=== PATIENT | female | born 1990 | race Caucasian/White ===

== ENCOUNTER → 2016-05-22 | Outpatient (CLI) | payer BC ==
[~2016-05-22] MED LIST: ALBU1AER9 INH; AMT50 PO; ASTN; CETI10TA84 PO; CETICHW4 PO; CHOL100027 PO; DICY10CA55 PO; ENOX60IN SQ; HYDR10TA52 PO; HYOS1TAB PO; LEVO1IUD INT UTER; LINA1CAP; LINA1CAP PO; MESA1.2T PO; NORE1TAB50 PO; NORE5TAB5 PO; ONDA4TAB46 PO; OXYC-57 PO; OXYC1TAB3 PO; PANT40TA PO; PROM25TA9 PO; RANI150T2 PO; SENN-65 PO; THYR1TAB15 PO; THYR65TA11 PO; VNTHFA/IN INH; ZYR10 PO; [UNRECOGNIZED DRUG - CODE] PO; lovenox SQ
--- NOTE | 2016-05-26 14:13 | CODING QUERY MEDICAL NECESSITY ---
: 1990 SUPPORTING DIAGNOSIS NEEDED A supporting diagnosis is required for the test/procedure performed on this patient in order for us to be reimbursed by the patient's insurance. Please provide a supporting diagnosis for the following test/procedure listed below next to the test name along with your signature. *If there is no additional diagnosis for this patient that would support the following test/procedure please document that below next to the test/procedure. Test(s)/Procedure(s) that require a supporting diagnosis: * DXA, BONE DENSITY AX DOS: 05/22/16 DIAGNOSIS: Provider Signature: Date: Thank you Lynne Foster Health Information Management Once completed, please kindly fax back to [phone] For questions please call [phone]
== END | disposition home or self-care (01) ==
LOC: C.MAMM 08:03
PROVIDERS: ATTEND Family Medicine
DX: E46 Unspecified protein-calorie malnutrition (principal); K90.9 Intestinal malabsorption, unspecified

== ENCOUNTER 2016-06-06 15:54 | Observation (INO) | payer BC ==
[~2016-06-06] VITALS: Ht 167.6 cm; Wt 48.6 kg
[~2016-06-06 15:54] MED LIST changes: -CETI10TA84 PO; -ENOX60IN SQ; -HYDR10TA52 PO; -HYOS1TAB PO; -LINA1CAP; -LINA1CAP PO; -NORE1TAB50 PO; -ONDA4TAB46 PO; -OXYC-57 PO; -OXYC1TAB3 PO; -RANI150T2 PO; -SENN-65 PO; -THYR1TAB15 PO; -THYR65TA11 PO; -VNTHFA/IN INH; -ZYR10 PO; -lovenox SQ
[2016-06-06 16:40] VITALS: BP 108/73; PULSE 104; TEMP 37.1; O2SAT 98; Ht 167.6 cm; Wt 48.6 kg
[2016-06-06] MEDS ORDERED: DICYCLOMINE HCL 10 MG CAP PO PRN (16:45)
[2016-06-06] MEDS ORDERED: ACETAMINOPHEN 325 MG TAB PO PRN (16:45)
[2016-06-06] MEDS ORDERED: LORAZEPAM INJ 0.5 MG in SYRINGE 0.25 ML IV PRN (16:45)
--- NOTE | 2016-06-06 17:10 | History and Physical ---
History & Physical Date & Time of Service: Jun 06, 2016 at 16:57 Chief Complaint: Allergic Reaction Primary Care Physician: Mariah Addison D.O. History of Present Illness Source: patient, hospital records This patient is a 26-year-old female that was in [facility] today receiving her IV Phenergan for chronic nausea and vomiting when she developed an allergic reaction. She reports getting hives on her chest, back and legs. They do not itch. Her throat does feel scratchy. It is not difficult to swallow. The patient typically takes Phenergan orally at home as needed. She has never had an allergic reaction to this before. Besides the Phenergan IV, the patient also received normal saline. No other meds were given at [facility]. She denies taking any new medications today. She took her typical pantoprazole this morning. She denies any dizziness or lightheadedness. No heart palpitations, chest pain or shortness of breath. She denies any new soaps, lotions or detergents. No new foods today. 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 Surgical Problems: (1) H/O adenoidectomy Status: Resolved (2) H/O laparoscopy Status: Resolved (3) H/O lumpectomy Status: Resolved (4) History of release of tendon Status: Resolved (5) Hx of tonsillectomy Status: Resolved (6) S/P wrist surgery Status: Resolved (7) [place] teeth extracted Status: Resolved Family History Diabetes mellitus FHx: cancer FHx: heart disease Hypertension Kidney stones Seizures Social History Smoking Status: Never Smoker Alcohol Use: none Drug Use: none Marital Status: single Housing status: lives with family Occupational Status: [employer] 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 Immunizations History of Influenza Vaccine: Yes History of Tetanus Vaccine?: Yes History of Pneumococcal: No History of Hepatitis B Vaccine: Yes Multi-Drug Resistant Organisms History of MDRO: No Allergies Coded Allergies: Erythromycin (Verified Allergy, Severe, GI SYMPTOMS, 06/06/16) Cephalosporins (Verified Allergy, Intermediate, HIVES, 06/06/16) Clavulanic Acid (Verified Allergy, Intermediate, HIVES, 06/06/16) Penicillins (Verified Allergy, Intermediate, HIVES, 06/06/16) Promethazine (Verified Allergy, Intermediate, hives, 06/06/16) Sulfamethoxazole w/Trimethoprim (Verified Allergy, Intermediate, RASH, ) Amoxicillin (Verified Allergy, Unknown, RASH, 06/06/16) Sumatriptan (Verified Allergy, Unknown, RASH, 06/06/16) Diphenhydramine (Verified Adverse Reaction, Intermediate, Tachycardia, Severe Anxiety, 06/06/16) Only with IV administration. Can take PO Home Medications Scheduled Amitriptyline Hcl (Elavil), 30 MG PO HS Cholecalciferol (Vitamin D 1000 Unit), 1,000 INTER.UNIT PO DAILY Levonorgestrel (Iud) (Betty), 13.5 MG INT UTER CONTINOUS Norethindrone (Aygestin), 2.5 MG PO DAILY Pantoprazole (Protonix), 40 MG PO DAILY Scheduled PRN Albuterol (Proair Hfa), 2 PUFFS INH Q4H PRN for SOB/Wheezing Azelastine Hcl (Astelin Nasal [place]), 1-2 SPRAYS NA BID PRN for Rhinitis Cetirizine HCl (All Day Allergy), 10 MG PO HS PRN for ALLERGIC REACTION Dicyclomine Hcl (Bentyl), 10-20 MG PO Q6H PRN for Abdominal Pain Trimethobenzamide Hcl (Trimethobenzamide Hcl), 300 MG PO TID PRN for Nausea Review of Systems 10 system review performed and negative unless noted in HPI or below Physical Exam VITALS: Vitals are noted on the nurse's note and reviewed by myself. Vital signs stable. GENERAL: 26-year-old female, mildly anxious in appearance SKIN: Blotchy erythematous, flat lesions noted to the trunk.. HEAD: Normocephalic atraumatic. EYES: Conjunctivae without injection, sclerae without icterus. Extraocular movements intact. MOUTH: Mucous membranes moist. Tonsils are not enlarged. Pharynx without erythema or exudate. Uvula midline. Airway patent. Tongue does not deviate. No swelling of the oropharynx NECK: Supple without nuchal rigidity. No lymphadenopathy. No JVD. HEART: Tachycardic, regular rate and rhythm without murmurs gallops or rubs. LUNGS: Clear to auscultation bilaterally without wheezes, rales or rhonchi. No accessory muscle use. ABDOMEN: Positive bowel sounds x 4.Soft, nontender, without organomegaly. No guarding or rebound tenderness. MUSCULOSKELETAL: No muscle atrophy, erythema, or edema noted. Strength 5/5 throughout. NEURO: Patient was alert and oriented to person place and time. Normal sensation to touch. No focal neurological deficits. Impression Assessment and Plan 26-year-old female with a history of Crohn's disease, chronic nausea and vomiting at her scheduled [facility] visit for IV Phenergan and fluids now appears to be having a mild allergic reaction. Etiology unclear. It would be unusual for her to develop an allergic reaction to Phenergan considering she has been on it for several months. She has received IV Phenergan in the past without any problems. Allergic reaction -Observe in telemetry -Continuous pulse ox -Solu-Medrol 60 mg IV every 8 hours -Patient has Benadryl listed as an allergy. We will give her Zyrtec 10 mg now. She can have her usual dose of Zyrtec tonight. -Begin Ativan 0.5 mg every 4 hours for anxiety, itching and nausea -I will hold off on any other antiemetics at the moment. I do not want to introduce any new medications. SMA syndrome/Crohn's disease -Continue mesalamine 3.6 g daily -Continue Protonix 40 mg daily -Continue amitriptyline 30 mg at night DVT prophylaxis -Encourage ambulation -Teds, SCDs CODE STATUS -LEVEL I FULL CODE VTE Prophylaxis VTE Risk Assessment Done? Y/N: Yes Risk Level: Low Assessment and Plan Attending Addendum: I have seen and examined this patient, have directed their medical care, and agree with the H&P as noted above.
[2016-06-06] MEDS: NSS + 20MEQ KCL 1000ML 1,000 ML IV SCH (18:10)
[2016-06-06] MEDS ORDERED: IV FLUIDS COMPLETED PRN (19:00)
[2016-06-06 19:48] VITALS: BP 94/64; PULSE 120; TEMP 37.1; O2SAT 97
[2016-06-06 20:00] VITALS: O2SAT 97
[2016-06-06] MEDS: CETIRIZINE HCL 10 MG TAB PO ONE ×2 (20:45→20:47)
[2016-06-06] MEDS ORDERED: AMITRIPTYLINE HCL 10 MG TAB PO SCH (21:00)
[2016-06-06 23:50] VITALS: BP 104/72; PULSE 110; TEMP 36.6; O2SAT 96
[2016-06-07] VITALS: O2SAT 97
[2016-06-07 03:30] VITALS: BP 91/55; PULSE 113; TEMP 36.9; O2SAT 97
[2016-06-07 04:00] VITALS: O2SAT 97
[2016-06-07] MEDS: NSS + 20MEQ KCL 1000ML 1,000 ML IV SCH (04:18)
[2016-06-07 07:18] LABS: COMPLETE YES; HEMATOCRIT 35.1 % (37-47); IG% 0.2 %; LYMPH % 14.3 %; LYMPH ABS # 1.38 K/uL (1.2-3.4); MEAN CELL VOLUME 90.9 fL (80-100); MEAN CORPUSCULAR HEMOGLOBIN 30.6 pg (25-34); MEAN CORPUSCULAR HGB CONC 33.6 g/dl (32-36); MEAN PLATELET VOLUME 10.6 fL (7.4-10.4); MONO % 11.1 %; NEUT % 74.4 %; PLATELET COUNT 279 K/uL (130-400); RED BLOOD COUNT 3.86 M/uL (4.2-5.4); WHITE BLOOD COUNT 9.64 K/uL (4.8-10.8)
[2016-06-07 07:47] LABS: BUN/CREATININE RATIO 13.2 (10-20); CALCIUM 8.8 mg/dl (8.5-10.1); CREATININE 0.65 mg/dl (0.60-1.20); POTASSIUM 4.3 mmol/L (3.5-5.1)
[2016-06-07 07:56] VITALS: BP 101/64; PULSE 93; TEMP 37; O2SAT 98
[2016-06-07] MEDS ORDERED: PANTOprazole SOD 40 MG TAB PO SCH (09:00)
[2016-06-07] MEDS ORDERED: NORETHINDRONE ACETATE 5 MG TAB PO SCH (09:00)
[2016-06-07 11:18] VITALS: BP 104/72; PULSE 101; TEMP 36.8; O2SAT 99
[2016-06-07] MEDS ORDERED: ZYR10 PO (12:49)
--- NOTE | 2016-06-07 12:59 | Discharge Instructions ---
Discharge Instructions Admission Reason for Admission: Allergic Reaction Discharge Discharge Diagnosis / Problem: Allergic Reaction Discharge Goals Goal(s): Decrease discomfort, Improve function Activity Recommendations Activity Limitations: resume your previous activity . Instructions / Follow-Up Instructions / Follow-Up Please follow up with the Commercial Illustrator Please follow up with the primary care doctor as scheduled on Thursday Current Hospital Diet Patient's current hospital diet: Regular Diet Discharge Diet Recommended Diet: Regular Diet Pending Studies Studies pending at discharge: no Medical Emergencies . Who to Call and When: Medical Emergencies: If at any time you feel your situation is an emergency, please call 911 immediately. . Non-Emergent Contact Non-Emergency issues call your: Primary Care Provider . . "Provider Documentation" section prepared by Cecilia Cruz. VTE Core Measure Inpt VTE Proph given/why not?: Cherie Johns, SCD's
[2016-06-07 14:05] VITALS: BP 104/72; PULSE 101; TEMP 36.8; O2SAT 99
--- NOTE | 2016-06-07 18:21 | Discharge Summary ---
Discharge Summary Admission Date: Jun 06, 2016 at 16:28 Discharge Date: Jun 07, 2016 Discharge Disposition: Home Principal Diagnosis: Allergic reaction Immunizations: Have You Had Influenza Vaccine: Yes History of Tetanus Vaccine?: Yes History of Pneumococcal: No History of Hepatitis B Vaccine: Yes (Cecilia Cruz MD) Discharge Exam Review of Systems: Constitutional: No chills, No fever Respiratory: No cough, No shortness of breath, No wheezing Abdomen: + nausea (chronic nausea especially after PO intake), + pain ( chronic pain), No vomiting Musculoskeletal: No muscle pain Genitourinary - Female: No dysuria Integumentary: No rash Physical Exam: General Appearance: no apparent distress Neck: supple, no JVD Respiratory/Chest: chest non-tender, lungs clear, normal breath sounds, no respiratory distress Cardiovascular: regular rate, rhythm, no edema, no gallop Abdomen / GI: normal bowel sounds, soft, no organomegaly Extremities: normal inspection, no pedal edema Neurologic/Psychiatric: alert, normal mood/affect, oriented x 3 Skin: normal color, warm/dry, no rash (Cecilia Cruz MD) Hospital Course 26-year-old female with a history of SMA, chronic nausea and vomiting at her scheduled [facility] visit for IV Phenergan and fluids. After 10 minutes of finishing IV phenergan she appears to have a mild allergic reaction. Etiology is unclear but it's most likely 2/2 Phenergan. However she has received IV Phenergan in the past without any problems. 1. Allergic reaction - She was observe in telemetry. All the antiemetics medications were on hold. She received one dose Solu-Medrol 60 mg IV. She also received Zyrtec. - She was observed overnight. In the morning she felt better and her symptoms resolved. - She was instructed not to take PO or IV Phnenergen given her allergic rxn most likely due to Phenergan. - Recommended to follow up with [facility] within a week. Also recommended to follow up with PCP on Thursday. - Patient was stable to discharge home with follow up with PCP. Total Time Spent: Less than 30 minutes This includes examination of the patient, discharge planning, medication reconciliation, and communication with other providers. (Cecilia Cruz MD) Discharge Instructions Please refer to the electronic Patient Visit Report (Discharge Instructions) for additional information. (Cecilia Cruz MD) Additional Copies To Mariah Addison D.O. Reviewed: Pt Seen/Exam by NANY Pruitt Notes, Labs (Vicky Drew MD) History Resident Physician Supervision Note: I was present with Dr. Cruz during the history and exam. I discussed the case with the resident and agree with the findings and plan as documented in the note. Any exceptions or clarifications are listed here: Pt admitted with hives after receiving her usual IV Phenergan in [facility]. Resolved after receiving IV steroids and 1 dose Zyrtec. Feeling fine, no SOB or wheezing , no throat closing, no cough, no more rash. Vitals reviewed NAD AAOx3 Skin mild erythematous macular rash on back very faint CTAB no wcr rrr no mgr Ext no edema 2+ DP pulses A/P: 26 yo female with a h/o chronic bad pain and chronic N/V, SMA syndrome and renal infarct, here with hives and likely allergic reaction to Phenergan. Suggested she f/u with her Asthma/Allergy doctor she is already established with. F/u with PCP as well within 1 week. Avoid phenergan Documented By: Vicky Drew (Vicky Drew MD)
[2016-06-07] MEDS ORDERED: CETIRIZINE HCL 10 MG TAB PO SCH (21:00)
[2016-08-28] MEDS ORDERED: lovenox SQ (13:05)
[2016-12-18] MEDS ORDERED: LINA1CAP PO (12:16)
[2016-12-18] MEDS ORDERED: HYOS1TAB PO (12:16)
[2016-12-22] MEDS ORDERED: OXYC-57 PO (15:35)
[2016-12-31] MEDS ORDERED: HYOS1TAB PO ×2 (10:37)
[2016-12-31] MEDS ORDERED: LINA1CAP (10:37)
== END 2016-06-07 14:55 | disposition home or self-care (01) ==
LOC: C.MED 16:28
PROVIDERS: ADMIT Hospitalist; ATTEND Hospitalist
DX: T42.6X5A Adverse effect of other antiepileptic and sedative-hypnotic drugs, initial encounter (principal); K55.1 Chronic vascular disorders of intestine; J45.909 Unspecified asthma, uncomplicated; K50.90 Crohn's disease, unspecified, without complications; Z90.49 Acquired absence of other specified parts of digestive tract; Z88.2 Allergy status to sulfonamides; Z88.0 Allergy status to penicillin; Z83.3 Family history of diabetes mellitus; Z84.1 Family history of disorders of kidney and ureter; Z82.49 Family history of ischemic heart disease and other diseases of the circulatory system

== ENCOUNTER 2016-09-04 21:32 | Emergency (ER) | payer BC ==
[~2016-09-04] VITALS: Ht 167.6 cm; Wt 49.8 kg
[~2016-09-04 21:32] MED LIST changes: -CETICHW4 PO; -MESA1.2T PO; -PROM25TA9 PO; +ZYR10 PO; +lovenox SQ
[2016-09-04 21:56] VITALS: TEMP 36.7; Ht 167.6 cm; Wt 49.8 kg
[2016-09-04] MEDS ORDERED: ONDANSETRON INJ 2 MG/ML 2 ML VIAL IV STA (23:08)
[2016-09-04] MEDS ORDERED: MoRPHine SULFATE 4 MG/ML 1 ML CARP\\VIAL IV STA (23:08)
[2016-09-04] MEDS ORDERED: SODIUM CHLORIDE 0.9% 1000ML 1,000 ML IV STA (23:08)
[2016-09-04] MEDS ORDERED: GI COCKTAIL PO ONE (23:15)
[2016-09-04] MEDS ORDERED: ENOXAPARIN 60 MG/0.6 ML SYR SQ ONE (23:30)
[2016-09-04 23:48] LABS: BASO % 0.6 %; BASO ABS # 0.04 K/uL (0-0.2); COMPLETE YES; EOS % 0.8 %; HEMATOCRIT 40.3 % (37-47); IG% 0.2 %; MEAN CELL VOLUME 92.2 fL (80-100); MEAN CORPUSCULAR HEMOGLOBIN 31.1 pg (25-34); MEAN CORPUSCULAR HGB CONC 33.7 g/dl (32-36); MEAN PLATELET VOLUME 10.5 fL (7.4-10.4); MONO % 11.7 %; NEUT % 59.7 %; PLATELET COUNT 290 K/uL (130-400); RED BLOOD COUNT 4.37 M/uL (4.2-5.4); WHITE BLOOD COUNT 6.66 K/uL (4.8-10.8)
[2016-09-04] MEDS ORDERED: LIDOCAINE HCL 2% VISC SOLN 20 ML UDC ONE (23:52)
[2016-09-04] MEDS ORDERED: ALUMINUM/MAGNESIUM/SIMETH (MAALOX MAX) 30 ML UDC ONE (23:53)
[2016-09-05 00:10] LABS: ALT/SGPT 65 U/L (12-78); AST/SGOT 27 U/L (15-37); BLOOD UREA NITROGEN 10 mg/dl (7-18); CALCIUM 9.3 mg/dl (8.5-10.1); CARBON DIOXIDE 28 mmol/L (21-32); CHLORIDE 109 mmol/L (98-107); CREATININE 0.91 mg/dl (0.60-1.20); GLUCOSE 88 mg/dl (70-99); POTASSIUM 3.6 mmol/L (3.5-5.1); SODIUM 145 mmol/L (136-145)
[2016-09-05 00:12] LABS: PREG INTERNAL NEGATIVE QC NEG CLEAR BACKGROUND; PREG INTERNAL POSITIVE QC POS CONTROL LINE
[2016-09-05 00:13] LABS: ALKALINE PHOSPHATASE 55 U/L (45-117)
[2016-09-05 00:31] LABS: MANUAL MICROSCOPIC REQUIRED? NO; URINE APPEARANCE CLEAR (CLEAR); URINE BILIRUBIN NEG (NEG); URINE COLOR YELLOW; URINE NITRITE NEG (NEG); UROBILINOGEN NEG (NEG)
[2016-09-05 00:32] LABS: REVIEW REQ? NO
[2016-09-05 01:51] VITALS: BP 104/59; PULSE 111; O2SAT 96
[2016-09-05] MEDS ORDERED: MoRPHine SULFATE 4 MG/ML 1 ML CARP\\VIAL IV STA (02:08)
[2016-09-05] MEDS ORDERED: NORE1TAB50 PO (02:13)
[2016-09-05] MEDS ORDERED: NORCO 5/325MG HOME PACK PO ONE (02:15)
[2016-09-05] MEDS ORDERED: ENOX60IN SQ (02:15)
--- NOTE | 2016-09-05 02:15 | EMERGENCY ROOM VISIT NOTE ---
History First contact with patient: 22:47 Chief Complaint: GI ASSESSMENT Stated Complaint: DIFFICULTY SWALLOWING,ACID REFLUX, PAIN Nursing Triage Summary: Having hard time swallowing. Patient has a hx of hiatal hernia. History of Present Illness The patient is a 26 year old female who presents to the Emergency Department by private vehicle with her mother for evaluation of her difficulty with swallowing as well as acid reflux and pain. The patient has a long-standing history of GI issues including SMA syndrome and generalized abdominal discomfort. She reports that she has an outpatient x-ray scheduled for tomorrow for a motility's Tiwari test. This evening, after eating, she noticed she was having difficulty with swallowing. She is able to tolerate her oral secretions, however. She reports pain in her epigastrium which is unchanged. She rates her current discomfort as a 7/10. She is tried nothing [id number] for symptoms. She denies any fevers, chills, chest pain, palpitations, short of breath, hematemesis, hematochezia, melena, hematuria, or dysuria. Review of Systems A complete 10-point Review of Systems was discussed with the patient, with pertinent positives and negatives listed in the History of Present Illness. All remaining Review of Systems questions can be considered negative unless otherwise specified. Past Medical/Surgical History Medical Problems: (1) Allergic reaction (2) Allergic reaction (3) Allergic reaction caused by a drug (4) Asthma (5) Crohn's disease (6) Endometriosis (7) Hypotension (8) SMAS (superior mesenteric artery syndrome) Surgical Problems: (1) H/O adenoidectomy (2) H/O laparoscopy (3) H/O lumpectomy (4) History of release of tendon (5) Hx of tonsillectomy (6) S/P cholecystectomy (7) S/P wrist surgery (8) [place] teeth extracted Family History Diabetes mellitus FHx: cancer FHx: heart disease Hypertension Kidney stones Seizures Social History Smoking Status: Never Smoker Alcohol Use: none Drug Use: none Marital Status: single Housing Status: lives with family Occupation Status: [employer] Current/Historical Medications Scheduled Amitriptyline Hcl (Elavil), 30 MG PO HS Enoxaparin (Lovenox), 50 MG SQ Q12H Levonorgestrel (Iud) (Betty), 13.5 MG INT UTER CONTINOUS Norethindrone (Contraceptive) (Norethindrone), 0.35 MG PO DAILY Pantoprazole (Protonix), 40 MG PO DAILY Scheduled PRN Albuterol Hfa (Ventolin Hfa), 2 PUFFS INH Q6H PRN for SOB/Wheezing Azelastine Hcl (Astelin Nasal [place]), 1-2 SPRAYS NA BID PRN for Rhinitis Cetirizine (Zyrtec), 10 MG PO DAILY PRN for ALLERGIC REACTION Dicyclomine Hcl (Bentyl), 10-20 MG PO Q6H PRN for Abdominal Pain Ondansetron Hcl (Zofran), 4 MG PO Q6H PRN for Nausea Trimethobenzamide Hcl (Trimethobenzamide Hcl), 300 MG PO TID PRN for Nausea Allergies Coded Allergies: Amoxicillin (Verified Allergy, Intermediate, RASH, 09/06/16) Cephalosporins (Verified Allergy, Intermediate, HIVES, 09/06/16) Clavulanic Acid (Verified Allergy, Intermediate, HIVES, 09/06/16) Penicillins (Verified Allergy, Intermediate, HIVES, 09/06/16) Promethazine (Verified Allergy, Intermediate, hives, 09/06/16) Sulfamethoxazole w/Trimethoprim (Verified Allergy, Intermediate, RASH, ) Sumatriptan (Verified Allergy, Intermediate, RASH, 09/06/16) Diphenhydramine (Verified Adverse Reaction, Intermediate, Tachycardia, Severe Anxiety WITH IV ONLY, 09/06/16) Only with IV administration. Can take PO Erythromycin (Verified Adverse Reaction, Intermediate, GI SYMPTOMS, ) Physical Exam Vital Signs Date Time Temp Pulse Resp B/P Pulse Ox O2 Delivery O2 Flow Rate FiO2 09/05/16 01:51 111 20 104/59 96 Room Air 09/05/16 00:09 120 09/04/16 23:55 127 14 112/87 99 Room Air 09/04/16 21:56 36.7 117 16 108/73 99 Room Air Pain Rating (0-10): 7 Physical Exam VITAL SIGNS - Vital signs and nursing notes were reviewed. GENERAL - 26-year-old female appearing her stated age who is in no acute distress. Communicates well with provider and answers questions appropriately. LUNGS - Chest wall symmetric without accessory muscle use, intercostals retractions, or central cyanosis. Normal vesicular breath sounds CTA B/L. No wheezes, rales, or rhonchi appreciated. CARDIAC - RRR with S1/S2. No murmur, rubs, or gallops appreciated. ABDOMEN - Abdominal contour flat and without pulsations or visible masses. BS normoactive all four quadrants. No tenderness to palpation appreciated throughout. No guarding. No Rebound Tenderness. Negative Rovsing's. Negative Yanez's. No palpable masses, hepatosplenomegaly, or ascites noted. PSYCH - A&Ox3 and cooperates fully with examiner. Pt is very pleasant and interacts well with examiner. Medical Decision & Procedures ER Provider Diagnostic Interpretation: Radiological imaging and reports were reviewed by myself. Radiologist's Interpretation as follows: Laboratory Results 09/04/16 23:26 Red Blood Count 4.37, Mean Corpuscular Volume 92.2, Mean Corpuscular Hemoglobin 31.1, Mean Corpuscular Hemoglobin Concent 33.7, Mean Platelet Volume 10.5, Neutrophils (%) (Auto) 59.7, Lymphocytes (%) (Auto) 27.0, Monocytes (%) (Auto) 11.7, Eosinophils (%) (Auto) 0.8, Basophils (%) (Auto) 0.6, Neutrophils # (Auto ) 3.98, Lymphocytes # (Auto) 1.80, Monocytes # (Auto) 0.78, Eosinophils # (Auto ) 0.05, Basophils # (Auto) 0.04 09/04/16 23:26 Test 09/04/16 23:26 09/05/16 00:06 White Blood Count 6.66 K/uL (4.8-10.8) Red Blood Count 4.37 M/uL (4.2-5.4) Hemoglobin 13.6 g/dL (12.0-16.0) Hematocrit 40.3 % (37-47) Mean Corpuscular Volume 92.2 fL (80-100) Mean Corpuscular Hemoglobin 31.1 pg (25-34) Mean Corpuscular Hemoglobin Concent 33.7 g/dl (32-36) Platelet Count 290 K/uL (130-400) Mean Platelet Volume 10.5 fL (7.4-10.4) Neutrophils (%) (Auto) 59.7 % Lymphocytes (%) (Auto) 27.0 % Monocytes (%) (Auto) 11.7 % Eosinophils (%) (Auto) 0.8 % Basophils (%) (Auto) 0.6 % Neutrophils # (Auto) 3.98 K/uL (1.4-6.5) Lymphocytes # (Auto) 1.80 K/uL (1.2-3.4) Monocytes # (Auto) 0.78 K/uL (0.11-0.59) Eosinophils # (Auto) 0.05 K/uL (0-0.5) Basophils # (Auto) 0.04 K/uL (0-0.2) RDW Standard Deviation 40.4 fL (36.4-46.3) RDW Coefficient of Variation 11.8 % (11.5-14.5) Immature Granulocyte % (Auto) 0.2 % Immature Granulocyte # (Auto) 0.01 K/uL (0.00-0.02) Anion Gap 8.0 mmol/L (3-11) Est Creatinine Clear Calc Drug Dose 74.9 ml/min Estimated GFR () 102.3 Estimated GFR (Non- 88.3 BUN/Creatinine Ratio 11.0 (10-20) Calcium Level 9.3 mg/dl (8.5-10.1) Total Bilirubin 0.2 mg/dl (0.2-1) Direct Bilirubin < 0.1 mg/dl (0-0.2) Aspartate Amino Transf (AST/SGOT) 27 U/L (15-37) Alanine Aminotransferase (ALT/SGPT) 65 U/L (12-78) Alkaline Phosphatase 55 U/L (45-117) Total Protein 7.7 gm/dl (6.4-8.2) Albumin 4.5 gm/dl (3.4-5.0) Lipase 227 U/L (73-393) Human Chorionic Gonadotropin, Qual NEG (NEG) Urine Color YELLOW Urine Appearance CLEAR (CLEAR) Urine pH 7.0 (4.5-7.5) Urine Specific [place] 1.010 (1.000-1.030) Urine Protein NEG (NEG) Urine Glucose (UA) NEG (NEG) Urine Ketones NEG (NEG) Urine Occult Blood NEG (NEG) Urine Nitrite NEG (NEG) Urine Bilirubin NEG (NEG) Urine Urobilinogen NEG (NEG) Urine Leukocyte Esterase NEG (NEG) Medications Administered Medications (Trade) Dose Ordered Sig/Amber Route Start Time Stop Time Status Last Admin Dose Admin Sodium Chloride (Nss 1000ml) 1,000 ml @ 999 mls/hr Q1H1M STAT IV 09/04/16 23:08 09/05/16 00:08 DC 09/04/16 23:51 999 MLS/HR Morphine Sulfate (MoRPHine SULFATE INJ) 4 mg NOW STAT IV 09/04/16 23:08 09/04/16 23:10 DC 09/04/16 23:52 4 MG Ondansetron HCl (Zofran Inj) 4 mg NOW STAT IV 09/04/16 23:08 09/04/16 23:10 DC 09/04/16 23:51 4 MG Enoxaparin Sodium (Lovenox Inj) 50 mg NOW ONCE SQ 09/04/16 23:30 09/04/16 23:31 DC 09/05/16 00:00 50 MG Lidocaine HCl (Viscous Lidocaine 2% Soln) 20 ml STK-MED ONCE .ROUTE 09/04/16 23:52 09/04/16 23:53 DC 09/04/16 23:52 20 ML Al Hydrox/Mg Hydrox/Simethicone (Maalox Max Susp) 30 ml STK-MED ONCE .ROUTE 09/04/16 23:53 09/04/16 23:54 DC 09/04/16 23:53 30 ML Morphine Sulfate (MoRPHine SULFATE INJ) 4 mg NOW STAT IV 09/05/16 02:08 09/05/16 02:09 DC 09/05/16 02:16 4 MG Acetaminophen/ Hydrocodone Bitart (Coral 5/325mg Home Pack) 1 homepack UD ONCE PO 09/05/16 02:15 09/05/16 02:16 DC 09/05/16 02:16 1 HOMEPACK ED Course Patient was seen and evaluated by myself. Labs were drawn, saline lock in place. The patient was hydrated with 1000 mL normal saline bolus. She received 4 mg morphine and 4 mg Zofran intravenously. She sees GI cocktail as well. The patient did not take her nightly dose of Lovenox. She was provided 50 mg subcutaneously. X-ray of the cervical spine soft tissues were obtained. Laboratory results demonstrate no acute leukocytosis, worrisome anemia, or bandemia. The patient has no significant electrolyte abnormalities. Urinalysis unremarkable. The patient is reevaluated and reports to pain. She was treated with an additional 4 mg morphine. The patient was offered admission for pain control which she has done in the past versus outpatient follow-up tomorrow as she does have an outpatient department scheduled. She is comfortable with disposition to the outpatient setting. She was provided a Percocet home pack. She was educated on worrisome symptoms for return visit to the emergency department. Patient discharged home in good condition. Medical Decision Given the patient's presentation and stated complaints, I did elect to perform the above-mentioned workup. The patient presents to the emergency department complaining of difficulty with swallowing. She complains of abdominal pain. This is a constant finding. She has no fever leukocytosis. She has no significant electrolyte abnormalities. She is no acute hepatitis. She responded well to GI cocktail and pain control in the setting. She was offered admission for pain control versus close follow-up with GI provider which is scheduled tomorrow. She looks to be discharged. The patient was educated on worrisome symptoms for return visit to the emergency department. Patient discharged home in good condition. In the evaluation and treatment of this patient, the following differential diagnoses were considered: Appendicitis, Diverticulitis, Diverticulosis, Colitis , Ischemic Colitis, Inflammatory Bowel Disease, Irritable Bowel Disease, Ovarian Cyst, , Ectopic, Ovarian Torsion, Kidney Stone, Pyelonephritis , Hydronephrosis, Cholecystitis, Ascending Cholangitis, Choledocholithiasis, GERD. Impression Primary Impression: Difficulty swallowing Additional Impression: Abdominal pain Departure Information Dispostion Home / Self-Care Condition GOOD Referrals Mariah Addison D.O. (PCP) Patient Instructions [facility] Additional Instructions You have been treated in the Emergency Department your Difficulty Swallowing and Abdominal Pain. Laboratory results and imaging studies have ruled out any emergent causes for your abdominal pain which would warrant admission or surgery. For pain control, you can use the following [id number]-isrghse medicines (if >12 yo): - Regular strength (325mg/tab) Tylenol (acetaminophen) 2 tabs every 4-6 hours as needed. Do not exceed 12 tablets in a 24 hour period. Avoid taking more than 4 grams (4000 mg) of Tylenol per day. This includes any other sources of acetaminophen you may take on a regular basis. - Regular strength (200 mg/tab) Advil (ibuprofen) 1-2 tabs every 4-6 hours as needed. Do not exceed a dose of 3200 mg per day. Drink plenty of water and stay well hydrated. As with any trip to the Emergency Department, you should follow-up with your Primary Care Provider from today's visit. Return to the emergency department if your symptoms persist despite treatment plan outlined above or if the following symptoms occur: increased fevers, chills , worsening nausea/vomiting, blood in your stool or urine. Problem Qualifiers Primary Impression: Difficulty swallowing Dysphagia type: unspecified Qualified Codes: R13.10 - Dysphagia, unspecified Additional Impression: Abdominal pain Abdominal location: unspecified location Qualified Codes: R10.9 - Unspecified abdominal pain
[2016-09-05] MEDS ORDERED: ONDA4TAB46 PO (02:18)
[2016-09-05] MEDS ORDERED: CETI10TA84 PO (02:18)
--- NOTE | 2016-09-05 07:38 | DIAGNOSTIC IMAGING REPORT ---
SOFT TISSUES NECK 2 VIEWS CLINICAL HISTORY: Dysphagia. FINDINGS: AP and lateral views of the soft tissues of the neck are correlated with fluoroscopic upper GI series dated 02/11/2016. The soft tissues of the neck are normal in appearance. The airway is widely patent. The epiglottic shadow is normal. The prevertebral/retropharyngeal soft tissues are within normal limits. No radiodense foreign body is seen. The cervical spine is intact as imaged. Partially imaged apical lung parenchyma appears clear. IMPRESSION: Unremarkable radiographic assessment of the soft tissues of the neck. Electronically signed by: Kirk Burgos M.D. 09/05/2016 7:36 AM Dictated Date/Time: 09/05/2016 7:35 AM
[2016-09-06] MEDS ORDERED: VNTHFA/IN INH (00:12)
[2016-12-18] MEDS ORDERED: HYOS1TAB PO (12:16)
[2016-12-18] MEDS ORDERED: LINA1CAP PO (12:16)
[2016-12-22] MEDS ORDERED: OXYC-57 PO (15:35)
[2016-12-31] MEDS ORDERED: LINA1CAP (10:37)
[2016-12-31] MEDS ORDERED: HYOS1TAB PO ×2 (10:37)
== END 2016-09-05 02:33 | disposition home or self-care (01) ==
LOC: C.EDB 21:33
DX: R13.10 Dysphagia, unspecified (principal); R10.9 Unspecified abdominal pain; K55.1 Chronic vascular disorders of intestine; K50.90 Crohn's disease, unspecified, without complications; N80.9 Endometriosis, unspecified; J45.909 Unspecified asthma, uncomplicated; I95.9 Hypotension, unspecified; Z83.3 Family history of diabetes mellitus; Z80.9 Family history of malignant neoplasm, unspecified; Z82.49 Family history of ischemic heart disease and other diseases of the circulatory system; Z84.1 Family history of disorders of kidney and ureter; Z79.899 Other long term (current) drug therapy

== ENCOUNTER 2016-09-05 23:50 | Emergency (ER) | payer BC ==
[~2016-09-05] VITALS: Ht 167.6 cm; Wt 49.3 kg
[~2016-09-05 23:50] MED LIST changes: +CETI10TA84 PO; +ENOX60IN SQ; +NORE1TAB50 PO; +ONDA4TAB46 PO
[2016-09-05 23:54] VITALS: TEMP 37.1; Ht 167.6 cm; Wt 49.3 kg
[2016-09-06] MEDS ORDERED: VNTHFA/IN INH (00:12)
--- NOTE | 2016-09-06 00:50 | EMERGENCY ROOM VISIT NOTE ---
History Report prepared by Sylvester: Sunitha Muir Under the Supervision of: Dr. Cecily Love D.O. First contact with patient: 00:19 Chief Complaint: VOMITING Stated Complaint: VOMITING,NAUSEA History of Present Illness The patient is a 26 year old female who presents to the Emergency Room with complaints of intermittent vomiting beginning tonight. The patient states that she has SMA syndrome and endometriosis. She notes that she had a KUB done today and had a swallowing study scheduled. Tonight the patient reports that she started vomiting bile and has not been able to keep liquids down. She notes that she has had an appendectomy, cholecystectomy, and one surgery for her SMA with another consultation with a surgeon for another potential SMA surgery. She states that she has had no previous obstructions. The patient complains of nausea beginning a few days ago. Source of History: patient Onset: tonight Position: other (global) Quality: other (vomiting bile) Timing: intermittent Associated Symptoms: + nausea Review of Systems See HPI for pertinent positives & negatives. A total of 10 systems reviewed and were otherwise negative. Past Medical & Surgical Medical Problems: (1) Allergic reaction (2) Allergic reaction (3) Allergic reaction caused by a drug (4) Asthma (5) Crohn's disease (6) Endometriosis (7) Hypotension (8) SMAS (superior mesenteric artery syndrome) Surgical Problems: (1) H/O adenoidectomy (2) H/O laparoscopy (3) H/O lumpectomy (4) History of release of tendon (5) Hx of tonsillectomy (6) S/P cholecystectomy (7) S/P wrist surgery (8) [place] teeth extracted Family History Diabetes mellitus FHx: cancer FHx: heart disease Hypertension Kidney stones Seizures Social History Smoking Status: Never Smoker Alcohol Use: none Drug Use: none Marital Status: single Housing Status: lives with family Occupation Status: [employer] Current/Historical Medications Scheduled Amitriptyline Hcl (Elavil), 30 MG PO HS Enoxaparin (Lovenox), 50 MG SQ Q12H Levonorgestrel (Iud) (Betty), 13.5 MG INT UTER CONTINOUS Norethindrone (Contraceptive) (Norethindrone), 0.35 MG PO DAILY Pantoprazole (Protonix), 40 MG PO DAILY Scheduled PRN Albuterol Hfa (Ventolin Hfa), 2 PUFFS INH Q6H PRN for SOB/Wheezing Azelastine Hcl (Astelin Nasal [place]), 1-2 SPRAYS NA BID PRN for Rhinitis Cetirizine (Zyrtec), 10 MG PO DAILY PRN for ALLERGIC REACTION Dicyclomine Hcl (Bentyl), 10-20 MG PO Q6H PRN for Abdominal Pain Ondansetron Hcl (Zofran), 4 MG PO Q6H PRN for Nausea Trimethobenzamide Hcl (Trimethobenzamide Hcl), 300 MG PO TID PRN for Nausea Allergies Coded Allergies: Amoxicillin (Verified Allergy, Intermediate, RASH, 09/06/16) Cephalosporins (Verified Allergy, Intermediate, HIVES, 09/06/16) Clavulanic Acid (Verified Allergy, Intermediate, HIVES, 09/06/16) Penicillins (Verified Allergy, Intermediate, HIVES, 09/06/16) Promethazine (Verified Allergy, Intermediate, hives, 09/06/16) Sulfamethoxazole w/Trimethoprim (Verified Allergy, Intermediate, RASH, ) Sumatriptan (Verified Allergy, Intermediate, RASH, 09/06/16) Diphenhydramine (Verified Adverse Reaction, Intermediate, Tachycardia, Severe Anxiety WITH IV ONLY, 09/06/16) Only with IV administration. Can take PO Erythromycin (Verified Adverse Reaction, Intermediate, GI SYMPTOMS, ) Physical Exam Vital Signs Date Time Temp Pulse Resp B/P Pulse Ox O2 Delivery O2 Flow Rate FiO2 09/06/16 04:39 107 16 84/59 97 Room Air 09/06/16 03:48 101 18 93/62 99 Room Air 09/06/16 01:47 102 16 88/54 98 Room Air 09/05/16 23:54 37.1 110 18 99/70 95 Room Air Physical Exam HEENT: Head - normocephalic and atraumatic Pupils are equal, round, and reactive to light. Extraocular eye muscles are intact, and sclera are anicteric. Nose - moist nasal mucosa without discharge. Mouth - moist buccal mucosa. Oropharynx is nonerythematous and there is no tonsillar exudate or edema noted. Neck: Supple; no JVD, nuchal rigidity, cervical lymphadenopathy. Heart: Tachycardic rate and regular rhythm. There is a normal S1 and S2 with no murmurs, clicks, or gallops appreciated. Lungs: Clear to auscultation bilaterally with no wheezes, rales, or rhonchi. Abdomen: Soft, epigastric pain on palpation, nondistended, with good bowel sounds. There are no palpable pulsatile masses or hepatosplenomegaly. There is no guarding, rigidity, or rebound noted. Extremities: No evidence of cyanosis, clubbing, or edema. There are easily palpable peripheral pulses. Skin: warm and dry with good turgor and no rashes. Medical Decision & Procedures ER Provider Diagnostic Interpretation: X-ray results as stated below per interpretation by me: Obstruction Series: Moderate colonic fecal retention with no evidence of bowel obstruction. Laboratory Results 09/06/16 00:52 Red Blood Count 4.19, Mean Corpuscular Volume 92.6, Mean Corpuscular Hemoglobin 31.0, Mean Corpuscular Hemoglobin Concent 33.5, Mean Platelet Volume 10.4, Neutrophils (%) (Auto) 83.6, Lymphocytes (%) (Auto) 9.2, Monocytes (%) (Auto) 6.4, Eosinophils (%) (Auto) 0.4, Basophils (%) (Auto) 0.1, Neutrophils # (Auto) 13.35, Lymphocytes # (Auto) 1.47, Monocytes # (Auto) 1.02, Eosinophils # (Auto) 0.06, Basophils # (Auto) 0.02 09/06/16 00:52 Test 09/06/16 00:52 White Blood Count 15.97 K/uL (4.8-10.8) Red Blood Count 4.19 M/uL (4.2-5.4) Hemoglobin 13.0 g/dL (12.0-16.0) Hematocrit 38.8 % (37-47) Mean Corpuscular Volume 92.6 fL (80-100) Mean Corpuscular Hemoglobin 31.0 pg (25-34) Mean Corpuscular Hemoglobin Concent 33.5 g/dl (32-36) Platelet Count 287 K/uL (130-400) Mean Platelet Volume 10.4 fL (7.4-10.4) Neutrophils (%) (Auto) 83.6 % Lymphocytes (%) (Auto) 9.2 % Monocytes (%) (Auto) 6.4 % Eosinophils (%) (Auto) 0.4 % Basophils (%) (Auto) 0.1 % Neutrophils # (Auto) 13.35 K/uL (1.4-6.5) Lymphocytes # (Auto) 1.47 K/uL (1.2-3.4) Monocytes # (Auto) 1.02 K/uL (0.11-0.59) Eosinophils # (Auto) 0.06 K/uL (0-0.5) Basophils # (Auto) 0.02 K/uL (0-0.2) RDW Standard Deviation 40.6 fL (36.4-46.3) RDW Coefficient of Variation 12.0 % (11.5-14.5) Immature Granulocyte % (Auto) 0.3 % Immature Granulocyte # (Auto) 0.05 K/uL (0.00-0.02) Anion Gap 8.0 mmol/L (3-11) Est Creatinine Clear Calc Drug Dose 85.5 ml/min Estimated GFR () 121.4 Estimated GFR (Non- 104.8 BUN/Creatinine Ratio 12.7 (10-20) Calcium Level 9.0 mg/dl (8.5-10.1) Total Bilirubin 0.3 mg/dl (0.2-1) Direct Bilirubin < 0.1 mg/dl (0-0.2) Aspartate Amino Transf (AST/SGOT) 70 U/L (15-37) Alanine Aminotransferase (ALT/SGPT) 130 U/L (12-78) Alkaline Phosphatase 58 U/L (45-117) Total Protein 7.3 gm/dl (6.4-8.2) Albumin 4.4 gm/dl (3.4-5.0) Amylase Level 64 U/L (25-115) Laboratory results per my review. Medications Administered Medications (Trade) Dose Ordered Sig/Amber Route Start Time Stop Time Status Last Admin Dose Admin Sodium Chloride 1,000 ml @ 250 mls/hr Q4H STAT IV 09/06/16 00:51 09/06/16 04:50 DC 09/06/16 00:51 250 MLS/HR Sodium Chloride (Nss 1000ml) 1,000 ml @ 999 mls/hr Q1H1M STAT IV 09/06/16 00:51 09/06/16 01:51 DC 09/06/16 00:58 999 MLS/HR Ondansetron HCl (Zofran Inj) 4 mg NOW STAT IV 09/06/16 00:51 09/06/16 00:52 DC 09/06/16 00:58 4 MG Lorazepam (Ativan Inj) 0.5 mg NOW STAT IV 09/06/16 01:35 09/06/16 01:41 DC 09/06/16 01:45 0.5 MG Lorazepam (Ativan Inj) 0.5 mg NOW STAT IV 09/06/16 03:35 09/06/16 03:36 DC 09/06/16 03:46 0.5 MG Procedure 0051: Zofran Inj 4mg IV, Sodium Chloride 1000 ml @ 999 mls/hr IV, Sodium Chloride 1000 ml @ 250 mls/hr IV. 0135: Ativan Inj 0.5mg IV. 0347: Ativan Inj 0.5mg IV. ED Course 0019: Past medical records reviewed. The patient was evaluated in room B5. A complete history and physical exam was performed. An IV lock was initiated and labs are drawn as above. 0051: Zofran Inj 4mg IV, Sodium Chloride 1000 ml @ 999 mls/hr IV, Sodium Chloride 1000 ml @ 250 mls/hr IV. She had an obstruction series as described above. 0135: She continued to complain of nausea and was given Ativan Inj 0.5mg IV. 0240: I spoke to the patient and her mother. She is doing much better. She had a second opinion by an brand attendant recently for a potential adrenal insufficiency. 0336: The patient is nauseated again. 0347: Ativan Inj 0.5mg IV. 0425: Upon reevaluation, the patient is doing well. I discussed findings and results with the patient and her mother. They verbalized agreement of the treatment plan. The patient was discharged home. Medical Decision The patient is a 26 year old female who presents to the ED with vomiting. Differential diagnosis includes small bowel obstruction, exacerbation of SMA syndrome, gastritis, colitis, dehydration. LABS: WBC 15.9 Stable H&H Normal Renal Function AST 70 ALT 130 Amylase 64 Glucose 98 Patient presents to the emergency department with bilious vomiting. X-ray shows no evidence of bowel obstruction. I do not suspect pelvic floor dysfunction as she has had in the past. She does appear to be somewhat dry on physical exam. She received IV crystalloid therapy along with Zofran and Ativan for nausea. She had no further episodes of bilious vomiting while here in the emergency department. The patient was able to drink clear liquids and eat crackers without difficulty. I have encouraged her to follow-up with her PCP on Thursday if her symptoms persist. If symptoms worsen, she can return here to the ER. Impression Primary Impression: Bilious vomiting Scribe Attestation The scribe's documentation has been prepared under my direction and personally reviewed by me in its entirety. I confirm that the note above accurately reflects all work, treatment, procedures, and medical decision making performed by me. Departure Information Dispostion Home / Self-Care Referrals Mariah Addison D.O. (PCP) Forms HOME CARE DOCUMENTATION FORM, IMPORTANT VISIT INFORMATION Patient Instructions My [facility], [facility] Additional Instructions Rest. Take plenty of clear liquids and a very bland diet. Use zofran as needed. Follow up with PCP on Thursday if symptoms persist
[2016-09-06] MEDS ORDERED: SODIUM CHLORIDE 0.9% 1000ML 1,000 ML IV STA ×2 (00:51)
[2016-09-06] MEDS ORDERED: ONDANSETRON INJ 2 MG/ML 2 ML VIAL IV STA (00:51)
[2016-09-06 01:07] LABS: BASO % 0.1 %; BASO ABS # 0.02 K/uL (0-0.2); COMPLETE YES; EOS % 0.4 %; HEMATOCRIT 38.8 % (37-47); IG% 0.3 %; LYMPH % 9.2 %; LYMPH ABS # 1.47 K/uL (1.2-3.4); MEAN CELL VOLUME 92.6 fL (80-100); MEAN CORPUSCULAR HGB CONC 33.5 g/dl (32-36); MEAN PLATELET VOLUME 10.4 fL (7.4-10.4); MONO % 6.4 %; NEUT % 83.6 %; PLATELET COUNT 287 K/uL (130-400); RED BLOOD COUNT 4.19 M/uL (4.2-5.4); WHITE BLOOD COUNT 15.97 K/uL (4.8-10.8)
[2016-09-06 01:25] LABS: ALT/SGPT 130 U/L (12-78); AST/SGOT 70 U/L (15-37); BLOOD UREA NITROGEN 10 mg/dl (7-18); BUN/CREATININE RATIO 12.7 (10-20); CARBON DIOXIDE 27 mmol/L (21-32); CHLORIDE 107 mmol/L (98-107); CREATININE 0.79 mg/dl (0.60-1.20); GLUCOSE 98 mg/dl (70-99); POTASSIUM 3.9 mmol/L (3.5-5.1); SODIUM 142 mmol/L (136-145)
[2016-09-06 01:28] LABS: ALKALINE PHOSPHATASE 58 U/L (45-117); AMYLASE 64 U/L (25-115)
[2016-09-06] MEDS ORDERED: LORAZEPAM 2 MG/ML 1 ML VIAL IV STA ×2 (01:35→03:35)
[2016-09-06 04:39] VITALS: BP 84/59; PULSE 107; O2SAT 97
--- NOTE | 2016-09-06 07:11 | DIAGNOSTIC IMAGING REPORT ---
ABDOMEN 2VIEW W/PA CHEST RTN CLINICAL HISTORY: Abdominal pain and vomiting COMPARISON STUDY: KUB dated 09/05/2016 FINDINGS: There is a mild scoliosis. There is no focal pulmonary consolidation. There is no free intraperitoneal air. Erect and supine views the abdomen reveal surgical clips within the right upper quadrant consistent with a prior cholecystectomy. There are no abnormally dilated loops of large or small bowel. There are no transition zones indicate bowel obstruction. Within the pelvis and IUD is visualized. 2 ringlike opacities are visualized consistent with Sitzmarks. IMPRESSION: 1. No evidence of bowel obstruction. No evidence of free air 2. 2 Sitzmarks are visualized within the rectosigmoid. Electronically signed by: Sudeep Buck M.D. 09/06/2016 7:08 AM Dictated Date/Time: 09/06/2016 7:06 AM
[2016-12-18] MEDS ORDERED: LINA1CAP PO (12:16)
[2016-12-18] MEDS ORDERED: HYOS1TAB PO (12:16)
[2016-12-22] MEDS ORDERED: OXYC-57 PO (15:35)
[2016-12-31] MEDS ORDERED: HYOS1TAB PO ×2 (10:37)
[2016-12-31] MEDS ORDERED: LINA1CAP (10:37)
== END 2016-09-06 04:43 | disposition home or self-care (01) ==
LOC: C.EDB 23:51
DX: R11.10 Vomiting, unspecified (principal); J45.909 Unspecified asthma, uncomplicated; K50.90 Crohn's disease, unspecified, without complications; N80.9 Endometriosis, unspecified; I95.9 Hypotension, unspecified; K55.1 Chronic vascular disorders of intestine; Z83.3 Family history of diabetes mellitus; Z80.9 Family history of malignant neoplasm, unspecified; Z82.49 Family history of ischemic heart disease and other diseases of the circulatory system; Z84.1 Family history of disorders of kidney and ureter; Z79.899 Other long term (current) drug therapy

== ENCOUNTER → 2016-09-29 | Outpatient (CLI) | payer BC ==
[~2016-09-29] MED LIST changes: -ALBU1AER9 INH; -CHOL100027 PO; +HYDR10TA52 PO; +HYOS1TAB PO; +LINA1CAP; +LINA1CAP PO; -NORE5TAB5 PO; +OXYC-57 PO; +OXYC1TAB3 PO; +RANI150T2 PO; +SENN-65 PO; +THYR1TAB15 PO; +THYR65TA11 PO; +VNTHFA/IN INH; -ZYR10 PO; -lovenox SQ
[2016-09-29 19:54] LABS: BLOOD UREA NITROGEN 13 mg/dl (7-18); BUN/CREATININE RATIO 14.2 (10-20); CALCIUM 8.9 mg/dl (8.5-10.1); CARBON DIOXIDE 33 mmol/L (21-32); CHLORIDE 107 mmol/L (98-107); CREATININE 0.93 mg/dl (0.60-1.20); GLUCOSE 98 mg/dl (70-99); SODIUM 144 mmol/L (136-145)
== END | disposition home or self-care (01) ==
LOC: C.LAB 18:52
PROVIDERS: ATTEND Family Medicine
DX: E86.0 Dehydration (principal)

== ENCOUNTER 2016-11-06 16:47 | Emergency (ER) | payer BC ==
[~2016-11-06] VITALS: Ht 175.3 cm; Wt 52.0 kg
[~2016-11-06 16:47] MED LIST changes: -HYDR10TA52 PO; -HYOS1TAB PO; -LINA1CAP; -LINA1CAP PO; -OXYC-57 PO; -OXYC1TAB3 PO; -RANI150T2 PO; -SENN-65 PO; -THYR1TAB15 PO; -THYR65TA11 PO
[2016-11-06 16:53] VITALS: TEMP 37.2; Ht 175.3 cm; Wt 52.0 kg
[2016-11-06] MEDS ORDERED: ONDANSETRON INJ 2 MG/ML 2 ML VIAL IV STA ×2 (17:53→21:18)
[2016-11-06] MEDS ORDERED: KETOROLAC TROMETHAMINE 30 MG/ML VIAL IV STA (17:53)
[2016-11-06] MEDS ORDERED: SODIUM CHLORIDE 0.9% 1000ML 1,000 ML IV STA (17:53)
[2016-11-06] MEDS ORDERED: THYR1TAB15 PO (18:09)
[2016-11-06] MEDS ORDERED: HYDR10TA52 PO (18:09)
[2016-11-06] MEDS ORDERED: THYR65TA11 PO (18:09)
[2016-11-06] MEDS ORDERED: RANI150T2 PO (18:09)
[2016-11-06] MEDS: MoRPHine SULFATE 4 MG/ML 1 ML CARP\\VIAL IV PRN ×2 (18:31→19:02)
[2016-11-06 18:33] LABS: BASO % 0.1 %; BASO ABS # 0.01 K/uL (0-0.2); COMPLETE YES; EOS % 0.2 %; HEMATOCRIT 44.2 % (37-47); IG% 0.1 %; LYMPH % 3.1 %; LYMPH ABS # 0.37 K/uL (1.2-3.4); MEAN CELL VOLUME 94.8 fL (80-100); MEAN CORPUSCULAR HEMOGLOBIN 32.4 pg (25-34); MEAN CORPUSCULAR HGB CONC 34.2 g/dl (32-36); MEAN PLATELET VOLUME 10.3 fL (7.4-10.4); MONO % 5.3 %; NEUT % 91.2 %; PLATELET COUNT 271 K/uL (130-400); RED BLOOD COUNT 4.66 M/uL (4.2-5.4); WHITE BLOOD COUNT 12.02 K/uL (4.8-10.8)
[2016-11-06 18:38] LABS: URINE APPEARANCE CLEAR (CLEAR); URINE BILIRUBIN NEG (NEG); URINE COLOR YELLOW; URINE NITRITE NEG (NEG); URINE SPECIFIC GRAVITY 1.014 (1.000-1.030); UROBILINOGEN NEG (NEG); ZZUR CULT IF INDIC CLEAN CATCH NO
[2016-11-06 18:41] LABS: MANUAL MICROSCOPIC REQUIRED? NO; REVIEW REQ? NO
--- NOTE | 2016-11-06 18:43 | EMERGENCY ROOM VISIT NOTE ---
History Report prepared by Sylvester: Anant Hedrick Under the Supervision of: Dr. Kirk Caldera M.D. First contact with patient: 17:49 Chief Complaint: NAUSEA Stated Complaint: NAUSEA, SEVERE PAIN RADIATING TO BACK History of Present Illness The patient is a 26 year old female who presents to the Emergency Room with complaints of intermittent upper abdominal pain starting two hours ago. She rates her pain as a 9/10 in severity. The patient states that she woke up nauseous, but still tried to eat a bagel for breakfast. She reports that an hour or two after eating she started to experience abdominal pain. The patient states that she typically has a chronic cramping abdominal pain, but admits that her pain she is experiencing now is different. She states that her pain is higher than usual and causes her to experience shortness of breath. The patient reports that she has been experiencing a fever starting two hours ago and feels tachycardic. The patient admits that she had a normal bowel movement yesterday. She reports that she has a history of an appendectomy, cholecystectomy, superior mesenteric syndrome, and endometriosis. The patient states that she is allergic to Sulfa, but admits she is able to take Morphine. She denies any vaginal discharge, urinary symptoms, being around someone who was sick, a history of a bowel obstruction, spleen issues, and diabetes. Source of History: patient Onset: two hours ago Position: abdomen Symptom Intensity: 9/10 Timing: intermittent Modifying Factors (Worsening): eating Associated Symptoms: + fevers, + SOB, + nausea, No urinary symptoms Review of Systems See HPI for pertinent positives & negatives. A total of 10 systems reviewed and were otherwise negative. Past Medical & Surgical Medical Problems: (1) Allergic reaction (2) Allergic reaction (3) Allergic reaction caused by a drug (4) Asthma (5) Crohn's disease (6) Endometriosis (7) Hypotension (8) SMAS (superior mesenteric artery syndrome) Surgical Problems: (1) H/O adenoidectomy (2) H/O laparoscopy (3) H/O lumpectomy (4) History of release of tendon (5) Hx of tonsillectomy (6) S/P cholecystectomy (7) S/P wrist surgery (8) [place] teeth extracted Family History Diabetes mellitus FHx: cancer FHx: heart disease Hypertension Kidney stones Seizures Social History Smoking Status: Never Smoker Alcohol Use: none Drug Use: none Marital Status: single Housing Status: lives with family Occupation Status: [employer] Current/Historical Medications Scheduled Amitriptyline Hcl (Elavil), 30 MG PO HS Hydrocortisone (Cortef), 55 MG PO DAILY Norethindrone (Contraceptive) (Norethindrone), 0.35 MG PO DAILY Pantoprazole (Protonix), 40 MG PO DAILY Ranitidine HCl (Ranitidine HCl), 1 TAB PO BID Sennosides-Docusate Sodium (Senokot S), 2 TAB PO BID Thyroid (Nature-Throid), 1.5 TAB PO DAILY Scheduled PRN Albuterol Hfa (Ventolin Hfa), 2 PUFFS INH Q6H PRN for SOB/Wheezing Azelastine Hcl (Astelin Nasal [place]), 1-2 SPRAYS NA BID PRN for Rhinitis Cetirizine (Zyrtec), 10 MG PO DAILY PRN for ALLERGIC REACTION Dicyclomine Hcl (Bentyl), 10-20 MG PO Q6H PRN for Abdominal Pain Ondansetron Hcl (Zofran), 4 MG PO Q6H PRN for Nausea Oxycodone Ir (Roxicodone Ir), 1-2 TAB PO Q4H PRN for Pain Trimethobenzamide Hcl (Trimethobenzamide Hcl), 300 MG PO TID PRN for Nausea Allergies Coded Allergies: Amoxicillin (Verified Allergy, Intermediate, RASH, 11/06/16) Cephalosporins (Verified Allergy, Intermediate, HIVES, 11/06/16) Clavulanic Acid (Verified Allergy, Intermediate, HIVES, 11/06/16) Penicillins (Verified Allergy, Intermediate, HIVES, 11/06/16) Prochlorperazine (Verified Allergy, Intermediate, HIVES, 11/06/16) Promethazine (Verified Allergy, Intermediate, hives, 11/06/16) Sulfamethoxazole w/Trimethoprim (Verified Allergy, Intermediate, RASH, ) Sumatriptan (Verified Allergy, Intermediate, RASH, 11/06/16) Diphenhydramine (Verified Adverse Reaction, Intermediate, Tachycardia, Severe Anxiety WITH IV ONLY, 11/06/16) Only with IV administration. Can take PO Erythromycin (Verified Adverse Reaction, Intermediate, GI SYMPTOMS, ) Physical Exam Vital Signs Date Time Temp Pulse Resp B/P (MAP) Pulse Ox O2 Delivery O2 Flow Rate FiO2 11/06/16 22:22 128 18 117/85 96 11/06/16 21:32 121 18 119/72 97 Room Air 11/06/16 20:58 62 18 107/71 96 Room Air 11/06/16 18:35 123 24 110/81 98 Room Air 11/06/16 16:53 37.2 130 18 112/69 96 Room Air Physical Exam GENERAL: Patient is in no acute distress. HEENT: No acute trauma, normocephalic atraumatic, mucous membranes moist, no nasal congestion, no scleral icterus. NECK: No stridor, no adenopathy, no meningismus, trachea is midline. LUNGS: Clear to auscultation bilaterally, no wheeze, no rhonchi, breath sounds equal. HEART: Tachycardic with regular rhythm. No murmur. ABDOMEN: Soft, Moderately tender in the epigastric area, bowel sounds positive, no hernias, no peritonitis. EXTREMITIES: No cyanosis or edema, full range of motion of all the joints without pain or difficulty, no signs for acute trauma. NEUROLOGIC: Oriented x 3, no acute motor or sensory deficits, no focal weakness. SKIN: No rash, no jaundice, no diaphoresis. Medical Decision & Procedures ER Provider Diagnostic Interpretation: X-ray results as stated below per interpretation by me and the radiologist: PA CHEST WITH ABDOMINAL SERIES CLINICAL HISTORY: Generalized abdominal pain. Nausea. FINDINGS: A PA chest radiograph is compared to study dated 09/06/2016. The cardiomediastinal silhouette is unremarkable. The lungs and pleural spaces are clear. No pneumothorax is seen. The bony thorax is grossly intact. There is mild to moderate S-shaped thoracolumbar scoliosis. Supine and erect abdominal radiograph are compared to study dated 09/06/2016 and correlated with abdominal CT dated 01/30/2016. Cholecystectomy clips are seen in the right upper quadrant. There is a nonobstructed abdominal bowel gas pattern noting mild to moderate colonic fecal retention. No intraperitoneal free air is seen. Surgical clips and an intrauterine device are noted in the pelvis. There are small pelvic phleboliths. The lumbosacral spine and bony pelvis appear intact. IMPRESSION: 1. No active disease in the chest. 2. Nonobstructed abdominal bowel gas pattern noting mild to moderate colonic fecal retention. Electronically signed by: Kirk Burgos M.D. 11/06/2016 7:07 PM Dictated Date/Time: 11/06/2016 7:05 PM Laboratory Results 11/06/16 18:20 Red Blood Count 4.66, Mean Corpuscular Volume 94.8, Mean Corpuscular Hemoglobin 32.4, Mean Corpuscular Hemoglobin Concent 34.2, Mean Platelet Volume 10.3, Neutrophils (%) (Auto) 91.2, Lymphocytes (%) (Auto) 3.1, Monocytes (%) (Auto) 5.3, Eosinophils (%) (Auto) 0.2, Basophils (%) (Auto) 0.1, Neutrophils # (Auto) 10.96, Lymphocytes # (Auto) 0.37, Monocytes # (Auto) 0.64, Eosinophils # (Auto) 0.03, Basophils # (Auto) 0.01 11/06/16 18:20 Test 11/06/16 18:15 11/06/16 18:20 Urine Color YELLOW Urine Appearance CLEAR (CLEAR) Urine pH 8.0 (4.5-7.5) Urine Specific [place] 1.014 (1.000-1.030) Urine Protein NEG (NEG) Urine Glucose (UA) NEG (NEG) Urine Ketones NEG (NEG) Urine Occult Blood NEG (NEG) Urine Nitrite NEG (NEG) Urine Bilirubin NEG (NEG) Urine Urobilinogen NEG (NEG) Urine Leukocyte Esterase NEG (NEG) White Blood Count 12.02 K/uL (4.8-10.8) Red Blood Count 4.66 M/uL (4.2-5.4) Hemoglobin 15.1 g/dL (12.0-16.0) Hematocrit 44.2 % (37-47) Mean Corpuscular Volume 94.8 fL (80-100) Mean Corpuscular Hemoglobin 32.4 pg (25-34) Mean Corpuscular Hemoglobin Concent 34.2 g/dl (32-36) Platelet Count 271 K/uL (130-400) Mean Platelet Volume 10.3 fL (7.4-10.4) Neutrophils (%) (Auto) 91.2 % Lymphocytes (%) (Auto) 3.1 % Monocytes (%) (Auto) 5.3 % Eosinophils (%) (Auto) 0.2 % Basophils (%) (Auto) 0.1 % Neutrophils # (Auto) 10.96 K/uL (1.4-6.5) Lymphocytes # (Auto) 0.37 K/uL (1.2-3.4) Monocytes # (Auto) 0.64 K/uL (0.11-0.59) Eosinophils # (Auto) 0.03 K/uL (0-0.5) Basophils # (Auto) 0.01 K/uL (0-0.2) RDW Standard Deviation 45.1 fL (36.4-46.3) RDW Coefficient of Variation 13.0 % (11.5-14.5) Immature Granulocyte % (Auto) 0.1 % Immature Granulocyte # (Auto) 0.01 K/uL (0.00-0.02) Anion Gap 9.0 mmol/L (3-11) Est Creatinine Clear Calc Drug Dose 77.4 ml/min Estimated GFR () 101.0 Estimated GFR (Non- 87.2 BUN/Creatinine Ratio 12.5 (10-20) Lactic Acid Level 0.8 mmol/L (0.4-2.0) Calcium Level 8.9 mg/dl (8.5-10.1) Total Bilirubin 0.5 mg/dl (0.2-1) Aspartate Amino Transf (AST/SGOT) 11 U/L (15-37) Alanine Aminotransferase (ALT/SGPT) 18 U/L (12-78) Alkaline Phosphatase 52 U/L (45-117) Total Protein 7.4 gm/dl (6.4-8.2) Albumin 4.1 gm/dl (3.4-5.0) Globulin 3.3 gm/dl (2.5-4.0) Albumin/Globulin Ratio 1.2 (0.9-2) Lipase 173 U/L (73-393) Human Chorionic Gonadotropin, Qual NEG (NEG) Laboratory results reviewed by me. Medications Administered Medications (Trade) Dose Ordered Sig/Amber Route Start Time Stop Time Status Last Admin Dose Admin Ondansetron HCl (Zofran Inj) 4 mg NOW STAT IV 11/06/16 17:53 11/06/16 17:55 DC 11/06/16 18:31 4 MG Sodium Chloride 1,000 ml @ 999 mls/hr Q1H1M STAT IV 11/06/16 17:53 11/06/16 18:53 DC 11/06/16 17:53 999 MLS/HR Morphine Sulfate (MoRPHine SULFATE INJ) 4 mg Q30M PRN IV 11/06/16 18:00 11/06/16 22:54 DC 11/06/16 19:02 4 MG Ketorolac Tromethamine (Toradol Inj) 30 mg NOW STAT IV 11/06/16 17:53 11/06/16 17:56 DC 11/06/16 18:31 30 MG Hydromorphone HCl (Dilaudid Inj) 0.5 mg NOW STAT IV 11/06/16 20:15 11/06/16 20:17 DC 11/06/16 20:49 0.5 MG Sodium Chloride 500 ml @ 999 mls/hr Q31M STAT IV 11/06/16 20:15 11/06/16 20:45 DC 11/06/16 20:15 999 MLS/HR Ondansetron HCl (Zofran Inj) 4 mg NOW STAT IV 11/06/16 21:18 11/06/16 21:19 DC 11/06/16 21:23 4 MG Oxycodone HCl (Roxicodone Immediate Rel 5MG Home Pack) 1 homepack UD ONCE PO 11/06/16 22:15 11/06/16 22:16 DC 11/06/16 22:17 1 HOMEPACK ECG Indication: abdominal pain Rate (beats per minute): 113 Rhythm: sinus tachycardia Findings: no acute ischemic change, no ectopy ED Course 1752: The patient was evaluated in room B08. A complete history and physical exam was performed. 1753: Toradol Injection 30 mg IV, Sodium Chloride 1000 ml @ 999 mls/hr IV, Zofran Injection 4 mg IV. 1800: Morphine Sulfate 4 mg IV. 2015: Sodium Chloride 500 ml @ 999 mls/hr IV, Dilaudid Injection 0.5 mg IV. 8: Zofran Injection 4 mg IV. 2124: I reevaluated the patient and she is resting comfortably. 2155: I reevaluated the patient. I discussed results and discharge instructions : She verbalized understanding and agreement. The patient is ready for discharge. 5: Oxycodone HCL 1 homepack PO. Medical Decision The differential diagnosis includes but is not limited to: biliary colic, pancreatitis, bowel obstruction, gastritis, ulcer, hernia, pneumonia, free air, acute on chronic pain. Medication Reconciliation: I attest that I have personally reviewed the patient' s current medication list. Blood Pressure Screening: Patient was found to have normal blood pressure on screening and does not require follow-up. There is a mild leukocytosis which could be consistent with infection or just her pain. No worrisome anemia. No significant electrolyte abnormality, kidney failure, hepatitis or pancreatitis. Urinalysis does not show infection. testing is negative. Lactic acid level is not elevated making bowel ischemia less likely. Obstruction series does not show pneumonia, bowel obstruction or free air. Moderate constipation was noted. On exam, the patient did not have peritonitis. She was not febrile or toxic. The patient received IV Toradol, IV Zofran and IV saline. She was given IV morphine and IV Dilaudid. She received a second dose of IV Zofran. The patient is feeling improved, she would like to go home. She has issues with this type of pain. She actually is scheduled to see a specialist in the near future for the possibility of sphincter of Oddi dysfunction. The patient is being discharged with a few oxycodone for pain. She was encouraged to increase her bowel regimen to aid in bowel movements. She has Zofran at home to use for nausea. If worsening, she will return for reassessment. Of note, the patient is tachycardic but looking back at old records, this often seems to be the case. EKG does show a sinus tachycardia, no acute ischemia. [place] Drug Monitoring [place] Search Results: patient reviewed within database, no issues identified Impression Primary Impression: Epigastric abdominal pain Scribe Attestation The scribe's documentation has been prepared under my direction and personally reviewed by me in its entirety. I confirm that the note above accurately reflects all work, treatment, procedures, and medical decision making performed by me. Departure Information Dispostion Home / Self-Care Prescriptions Sennosides-Docusate Sodium (SENOKOT S) 1 Tab Tab 2 TAB PO BID, #30 TAB Prov: Kirk Caldera M.D. 11/06/16 Oxycodone Ir (Roxicodone Ir) 5 Mg Tab 1-2 TAB PO Q4H Y for Pain, #8 TAB Prov: Kirk Caldera M.D. 11/06/16 Referrals Mariah Addison D.O. (PCP) Forms HOME CARE DOCUMENTATION FORM, IMPORTANT VISIT INFORMATION Patient Instructions My [facility] Additional Instructions zofran or tigan for nausea as before oxy ir 1 tab every 4 hours for pain would suggest senokot 2 tabs 2x per day to help bowel movements bland diet---crackers, soup, toast, gatorade return if worsening or have fever or persistent vomiting
[2016-11-06 18:51] LABS: BUN/CREATININE RATIO 12.5 (10-20); CALCIUM 8.9 mg/dl (8.5-10.1); CREATININE 0.92 mg/dl (0.60-1.20); POTASSIUM 3.9 mmol/L (3.5-5.1)
[2016-11-06 18:54] LABS: ALB/GLOB RATIO 1.2 (0.9-2)
[2016-11-06 19:02] LABS: PREG INTERNAL POSITIVE QC POS CONTROL LINE
[2016-11-06 19:03] LABS: PREG INTERNAL NEGATIVE QC NEG CLEAR BACKGROUND
--- NOTE | 2016-11-06 19:08 | DIAGNOSTIC IMAGING REPORT ---
PA CHEST WITH ABDOMINAL SERIES CLINICAL HISTORY: Generalized abdominal pain. Nausea. FINDINGS: A PA chest radiograph is compared to study dated 09/06/2016. The cardiomediastinal silhouette is unremarkable. The lungs and pleural spaces are clear. No pneumothorax is seen. The bony thorax is grossly intact. There is mild to moderate S-shaped thoracolumbar scoliosis. Supine and erect abdominal radiograph are compared to study dated 09/06/2016 and correlated with abdominal CT dated 01/30/2016. Cholecystectomy clips are seen in the right upper quadrant. There is a nonobstructed abdominal bowel gas pattern noting mild to moderate colonic fecal retention. No intraperitoneal free air is seen. Surgical clips and an intrauterine device are noted in the pelvis. There are small pelvic phleboliths. The lumbosacral spine and bony pelvis appear intact. IMPRESSION: 1. No active disease in the chest. 2. Nonobstructed abdominal bowel gas pattern noting mild to moderate colonic fecal retention. Electronically signed by: Kirk Burgos M.D. 11/06/2016 7:07 PM Dictated Date/Time: 11/06/2016 7:05 PM
[2016-11-06] MEDS ORDERED: DiphenhydrAMINE HCL 50 MG/ML VIAL IV STA (20:15)
[2016-11-06] MEDS ORDERED: HYDROmorphone INJ 2 MG/ML SYR/VIAL IV STA (20:15)
[2016-11-06] MEDS ORDERED: SODIUM CHLORIDE 0.9% 500ML 500 ML IV STA (20:15)
[2016-11-06] MEDS ORDERED: PROCHLORPERAZINE 5 MG/ML 2 ML VIAL IV STA (20:15)
[2016-11-06] MEDS ORDERED: OXYC1TAB3 PO (22:12)
[2016-11-06] MEDS ORDERED: SENN-65 PO (22:12)
[2016-11-06] MEDS ORDERED: OXYCODONE IR HOME PACK PO ONE (22:15)
[2016-11-06 22:22] VITALS: BP 117/85; PULSE 128; O2SAT 96
[2016-12-18] MEDS ORDERED: LINA1CAP PO (12:16)
[2016-12-18] MEDS ORDERED: HYOS1TAB PO (12:16)
[2016-12-22] MEDS ORDERED: OXYC-57 PO (15:35)
[2016-12-31] MEDS ORDERED: LINA1CAP (10:37)
[2016-12-31] MEDS ORDERED: HYOS1TAB PO ×2 (10:37)
== END 2016-11-06 22:24 | disposition home or self-care (01) ==
LOC: C.EDB 16:48
DX: R10.13 Epigastric pain (principal); R00.0 Tachycardia, unspecified; J45.909 Unspecified asthma, uncomplicated; K50.90 Crohn's disease, unspecified, without complications; Z90.49 Acquired absence of other specified parts of digestive tract; Z98.890 Other specified postprocedural states; Z79.899 Other long term (current) drug therapy; Z88.0 Allergy status to penicillin; Z88.1 Allergy status to other antibiotic agents; Z88.2 Allergy status to sulfonamides; Z88.3 Allergy status to other anti-infective agents; Z88.8 Allergy status to other drugs, medicaments and biological substances; Z83.3 Family history of diabetes mellitus; Z80.9 Family history of malignant neoplasm, unspecified; Z82.49 Family history of ischemic heart disease and other diseases of the circulatory system; Z84.1 Family history of disorders of kidney and ureter; Z82.0 Family history of epilepsy and other diseases of the nervous system

== ENCOUNTER → 2016-12-03 | Outpatient (CLI) | payer BC ==
[~2016-12-03] MED LIST changes: -ENOX60IN SQ; +HYDR10TA52 PO; +HYOS1TAB PO; -LEVO1IUD INT UTER; +LINA1CAP; +LINA1CAP PO; +OXYC-57 PO; +OXYC1TAB3 PO; +RANI150T2 PO; +THYR65TA11 PO
[2016-12-03 12:55] LABS: ALT/SGPT 19 U/L (12-78); BLOOD UREA NITROGEN 9 mg/dl (7-18); BUN/CREATININE RATIO 10.6 (10-20); CALCIUM 8.8 mg/dl (8.5-10.1); CARBON DIOXIDE 30 mmol/L (21-32); CHLORIDE 108 mmol/L (98-107); CREATININE 0.86 mg/dl (0.60-1.20); GLUCOSE 120 mg/dl (70-99); POTASSIUM 3.3 mmol/L (3.5-5.1); SODIUM 144 mmol/L (136-145)
[2016-12-03 12:58] LABS: ALKALINE PHOSPHATASE 52 U/L (45-117); AST/SGOT 9 U/L (15-37)
== END ==
LOC: C.LAB 11:07
PROVIDERS: ATTEND Physician Assistant
DX: R11.2 Nausea with vomiting, unspecified (principal)

== ENCOUNTER → 2016-12-22 | Day surgery (SDC) | payer BC ==
[2016-12-18 12:17] VITALS: BMI 19.0
--- NOTE | 2016-12-18 12:50 | PAT Medication Instructions ---
Service Date Dec 18, 2016. Current Home Medication List Albuterol Hfa (Ventolin Hfa), 2 PUFFS INH Q6H PRN for SOB/Wheezing Azelastine Hcl (Astelin Nasal [place]), 1-2 SPRAYS NA BID PRN for Rhinitis Cetirizine (Zyrtec), 10 MG PO DAILY PRN for ALLERGIC REACTION Dicyclomine Hcl (Bentyl), 10-20 MG PO Q6H PRN for Abdominal Pain Hydrocortisone (Cortef), 55 MG PO UD Hyoscyamine Sulfate (Levsin), 0.125 MG PO Q4H PRN for RN Linaclotide (Linzess), 145 MCG PO QAM Norethindrone (Contraceptive) (Norethindrone), 0.35 MG PO QAM Ondansetron Hcl (Zofran), 4 MG PO Q6H PRN for Nausea Pantoprazole (Protonix), 40 MG PO QAM Ranitidine HCl (Ranitidine HCl), 1 TAB PO HS Thyroid (Nature-Throid), 1.5 TAB PO QAM Trimethobenzamide Hcl (Trimethobenzamide Hcl), 300 MG PO TID PRN for Nausea Medication Instructions For Your Scheduled Surgery - Check with surgeon for instructions: Norethindrone (Contraceptive) (Norethindrone), 0.35 MG PO QAM - Hold the following medications the morning of surgery: Linaclotide (Linzess), 145 MCG PO QAM Hyoscyamine Sulfate (Levsin), 0.125 MG PO Q4H PRN for RN Dicyclomine Hcl (Bentyl), 10-20 MG PO Q6H PRN for Abdominal Pain Cetirizine (Zyrtec), 10 MG PO DAILY PRN for ALLERGIC REACTION - Take the following medications the morning of surgery with a sip of water: Thyroid (Nature-Throid), 1.5 TAB PO QAM Ondansetron Hcl (Zofran), 4 MG PO Q6H PRN for Nausea (if needed) Pantoprazole (Protonix), 40 MG PO QAM Hydrocortisone (Cortef), 55 MG PO UD TID Albuterol Hfa (Ventolin Hfa), 2 PUFFS INH Q6H PRN for SOB/Wheezing (use if needed; bring with you to hospital) Azelastine Hcl (Astelin Nasal [place]), 1-2 SPRAYS NA BID PRN for Rhinitis (if needed) Trimethobenzamide Hcl (Trimethobenzamide Hcl), 300 MG PO TID PRN for Nausea (if needed) - Take the following medications as scheduled the night before surgery: Ranitidine HCl (Ranitidine HCl), 1 TAB PO HS Ondansetron Hcl (Zofran), 4 MG PO Q6H PRN for Nausea (if needed) Hyoscyamine Sulfate (Levsin), 0.125 MG PO Q4H PRN for RN (if needed) Hydrocortisone (Cortef), 55 MG PO UD TID Dicyclomine Hcl (Bentyl), 10-20 MG PO Q6H PRN for Abdominal Pain (if needed) Cetirizine (Zyrtec), 10 MG PO DAILY PRN for ALLERGIC REACTION (if needed) Albuterol Hfa (Ventolin Hfa), 2 PUFFS INH Q6H PRN for SOB/Wheezing (if needed) Azelastine Hcl (Astelin Nasal [place]), 1-2 SPRAYS NA BID PRN for Rhinitis (if needed) Trimethobenzamide Hcl (Trimethobenzamide Hcl), 300 MG PO TID PRN for Nausea ( if needed) If you have any questions please call us at [phone] or [phone] or [phone]
[2016-12-18 13:18] LABS: BASO % 0.3 %; BASO ABS # 0.02 K/uL (0-0.2); COMPLETE YES; EOS % 0.8 %; HEMATOCRIT 41.6 % (37-47); IG% 0.1 %; LYMPH % 16.1 %; LYMPH ABS # 1.15 K/uL (1.2-3.4); MEAN CELL VOLUME 93.9 fL (80-100); MEAN CORPUSCULAR HEMOGLOBIN 30.7 pg (25-34); MEAN CORPUSCULAR HGB CONC 32.7 g/dl (32-36); MEAN PLATELET VOLUME 10.3 fL (7.4-10.4); MONO % 8.5 %; NEUT % 74.2 %; PLATELET COUNT 263 K/uL (130-400); RED BLOOD COUNT 4.43 M/uL (4.2-5.4); WHITE BLOOD COUNT 7.14 K/uL (4.8-10.8)
[2016-12-18 15:06] LABS: BUN/CREATININE RATIO 13.1 (10-20); CALCIUM 8.5 mg/dl (8.5-10.1); CREATININE 0.79 mg/dl (0.60-1.20); POTASSIUM 3.5 mmol/L (3.5-5.1)
[~2016-12-22] VITALS: Ht 165.1 cm; Wt 52.3 kg
[~2016-12-22] MED LIST changes: -AMT50 PO; +ATROPINE SULFATE 0.1 MG/ML 5ML SYR IV PRN; +BUPIVACAINE 0.25% 30 ML VIAL ONE; +CLINDAMYCIN IV 600 MG in DEXTROSE 5% 50ML 50 ML IV SCH; +FENTANYL CITRATE INJ 50 MCG/1 ML 2 ML VIAL IV PRN; +FENTANYL CITRATE INJ 50 MCG/1 ML 2 ML VIAL ONE; +HYDROCORTISONE SOD SUCCINATE 100 MG/2 ML VIAL ONE; +LACTATED RINGER'S 1000ML 1,000 ML IV SCH; +LIDOCAINE HCL 1% 20 ML VIAL ONE; +LIDOCAINE HCL 2% 2 ML VIAL (20MG/ML) ONE; +MIDAZOLAM HCL 1 MG/ML 2ML VIAL ONE; +MoRPHine SULFATE 2 MG/ML CARP IV PRN; +NURSING VERBAL MED ORDER ONE; +ONDANSETRON INJ 2 MG/ML 2 ML VIAL IV PRN; -OXYC1TAB3 PO; +OXYCODONE/ACETAMINOPHEN 5-325 TAB PO PRN; +PROPOFOL IV EMULSION 10 MG/ML 20 ML VIAL IV ONE; +SODIUM CHLORIDE 0.9% 1000ML 1,000 ML IV SCH
[2016-12-22 13:10] VITALS: BP 134/79; PULSE 104; TEMP 37.1; O2SAT 99; Ht 165.1 cm; Wt 52.3 kg
--- NOTE | 2016-12-22 14:05 | History & Physical Bridge Note ---
H&P Re-Evaluation Bridge Note: I have examined the patient, reviewed the History & Physical and in the interval since the performance of the History & Physical I have noted the following changes of clinical significance: No changes noted
[2016-12-22 14:16] LABS: THYROID STIMULATING HORMONE < 0.005 uIu/ml (0.300-4.500)
--- NOTE | 2016-12-22 15:28 | Discharge Instructions ---
Discharge Instructions Date of Service Dec 22, 2016. Admission Reason for Admission: Circulatory System Disorder Discharge Discharge Diagnosis / Problem: same Discharge Goals Goal(s): Decrease discomfort, Improve function Activity Recommendations Activity Limitations: as noted below No heavy lifting over 10 pounds for 1 week Do not reach above your head with left arm for 1 week You may shower, clean incision with soap and water, pat dry. Surgical glue will fall off on its own No driving while taking narcotic pain medication or until you are pain free whichever comes last . Instructions / Follow-Up Instructions / Follow-Up Follow-up 1-2 weeks, please call office at [phone] if you do not already have an appointment Current Hospital Diet Patient's current hospital diet: Discharge Diet Recommended Diet: Regular Diet Procedures Procedures Performed: Infusaport Insertion left subclavian vein Pending Studies Studies pending at discharge: no Medical Emergencies . Who to Call and When: Medical Emergencies: If at any time you feel your situation is an emergency, please call 911 immediately. . Non-Emergent Contact Non-Emergency issues call your: Primary Care Provider, Surgeon Call Non-Emergent contact if: you have a fever, temperature is above 101, your pain is not controlled, your pain is worsening, wound has increased drainage, wound has increased redness, wound has increased pain . "Provider Documentation" section prepared by Debo Carbajal. . VTE Core Measure Inpt VTE Proph given/why not?: SCD's [place] Drug Monitoring Program Search Results: patient reviewed within database, no issues identified
--- NOTE | 2016-12-22 15:47 | DIAGNOSTIC IMAGING REPORT ---
CHEST ONE VIEW PORTABLE HISTORY: s/p left subclavian a-port insertion COMPARISON: Chest 11/06/2016. FINDINGS: Left subclavian Port-A-Cath terminates in the SVC. The heart is normal in size. No pleural effusions. No pneumothorax. No evidence for pulmonary edema. No focal lung consolidations to suggest pneumonia. A 1 cm nodular density within the right upper lobe. The left lung is clear. IMPRESSION: 1. Left subclavian Port-A-Cath terminates in the expected location of the SVC. No pneumothorax. 2. Questionable 1 cm nodule within the right upper lobe. This was not seen on the previous studies and may be due to overlapping artifact. A follow-up PA and lateral view of the chest is recommended for confirmation. Electronically signed by: Victor Hugo Snowden M.D. 12/22/2016 3:46 PM Dictated Date/Time: 12/22/2016 3:41 PM
--- NOTE | 2016-12-22 15:51 | [facility] Operative Report ---
Operative Report Operative Date Dec 22, 2016. Pre-Operative Diagnosis Dehydration and need for frequent intravenous fluids Post-Operative Diagnosis Same as preoperative diagnosis Procedure(s) Performed Infusaport Insertion left subclavian vein Surgeon Dr. Delmis Montalvo [employer] Se[employer] Operator Surgeon(s) Dr. Man Phillips Estimated Blood Loss 10 mL Findings Good venous blood return when vein located with finder needle. Wire threaded easily, verified to be in good position with fluoroscopy. Once Infusaport was in place, adonis back blood easily and flushed easily. Fluids 1000 Specimens No pathology specimens per surgeon Drains None Anesthesia Monitored local Complication(s) None Disposition Recovery Room / PACU Indications Pilar Garcia is a 26 year old woman with multiple medical problems with frequent dehydration necessitating frequent IVF administration. Indications, risks, benefits and potential complications of venous infusaport placement were discussed with patient and her mother. All questions answered to apparent satisfaction. Patient elected to proceed with the operation and freely signed the consent form. Description of Procedure Patient was brought to the operating room and verified to be Pilar Garcia, 89. She was placed on the operating table in supine position. Monitored anesthesia was initiated without difficulty. A shoulder roll was placed behind the patient to open the subclavian area. The left upper chest and neck was prepped and draped in the usual sterile fashion. Local anesthetic was injected subcutaneously at the puncture site. A finder needle was used to access the left subclavian vein. Once accessed, good venous (non- pulsatile) blood flow was observed. The wire was threaded through the needle and verified to be in proper position in the IVC by fluoroscopy; the finder needle was removed, leaving the wire in place. A small skin alma was made at the puncture site to allow for the dilator to pass. Next, local anesthetic was injected at the site where the infusaport pocket was to be made, just inferior and medial to the puncture site. An approximately 3cm incision was made and carried down through subcutaneous tissue, achieving hemostasis with electrocautery. A combination of sharp and blunt dissection was used to create a subcutaneous pocket large enough to accomodate the infusaport. Next, the dilator was inserted over the wire to dilate the puncture site. The wire was removed, leaving the outer sheath in place. The catheter was fed through the sheath, verified to be in good position by fluoroscopy. A tunnel was made subcutaneously connecting the infusaport pocket to the puncture site, and the catheter was brought through the tunnel to connect with the pocket. The catheter was then drawn back under fluoroscopic guidance until the tip was just placed at the junction of the superior vena cava and right atrium. The catheter was cut to size, and connected with the infusaport, placing the plastic cuff tightly at the junction. The port was accessed using a [place] needle; the port adonis back blood and flushed easily. The port was flushed with heparin. The infusaport was secured in place with two prolene sutures. The instrument and sponge count was verified to be correct by the nurse in charge. Subcutaneous tissue at the infusaport pocket incision was approximated using 3- 0 vicryl in interrupted fashion. Next, the skin was closed using 4-0 Monocryl; the puncture site was also closed using 4-0 Monocryl. Dermabond was then applied. Patient was then awakened from anesthesia and brought to the PACU, having suffered no untoward events. A CXR is to be completed in the PACU to verify the abscence of pneumothorax. I attest to the content of the Intraoperative Record and any orders documented therein. Any exceptions are noted below.
--- NOTE | 2016-12-22 16:08 | Anesthesiology Progress Note ---
Anesthesia Post Op Note Date & Time Dec 22, 2016 at 16:08 Vital Signs Pain Intensity: 0 Vital Signs Past 12 Hours Date Time Temp Pulse Resp B/P (MAP) Pulse Ox O2 Delivery O2 Flow Rate FiO2 12/22/16 16:01 106 18 96 12/22/16 16:01 109 18 12/22/16 16:00 114/75 12/22/16 15:58 36.6 12/22/16 15:56 107 17 12/22/16 15:56 108 17 97 12/22/16 15:55 115/73 12/22/16 15:52 105 19 12/22/16 15:52 105 19 96 12/22/16 15:50 113/75 12/22/16 15:47 109 18 12/22/16 15:47 108 18 97 12/22/16 15:45 115/77 12/22/16 15:42 111 21 97 12/22/16 15:42 110 21 12/22/16 15:41 101 21 12/22/16 15:41 101 21 98 12/22/16 15:40 114/75 12/22/16 15:36 108 20 97 12/22/16 15:36 107 20 12/22/16 15:35 116/77 12/22/16 15:31 107 16 12/22/16 15:31 105 16 99 12/22/16 15:30 109 22 114/74 99 12/22/16 15:30 111 22 12/22/16 15:25 104 21 12/22/16 15:25 105 21 116/73 100 12/22/16 15:20 117 18 12/22/16 15:20 115 18 127/79 100 12/22/16 15:20 37.1 115 16 127/79 100 Mask 10 12/22/16 13:10 37.1 104 18 134/79 (97) 99 Room Air Notes Mental Status: alert / awake / arousable, participated in evaluation Pt Amnestic to Procedure: Yes Nausea / Vomiting: adequately controlled Pain: adequately controlled Airway Patency, RR, SpO2: stable & adequate BP & HR: stable & adequate Hydration State: stable & adequate Anesthetic Complications: no major complications apparent
[2016-12-22 16:15] VITALS: BP 107/72; PULSE 108; TEMP 36.6; O2SAT 97
[2016-12-22 16:45] VITALS: BP 101/69; PULSE 94; TEMP 36.6; O2SAT 98
== END | disposition home or self-care (01) ==
LOC: C.ACU 12:40
PROVIDERS: ATTEND Student in an Organized Health Care Education/Training Program
DX: E86.0 Dehydration (principal); K50.90 Crohn's disease, unspecified, without complications; Z90.49 Acquired absence of other specified parts of digestive tract

== ENCOUNTER → 2016-12-25 | Outpatient (CLI) | payer BC ==
[~2016-12-25] MED LIST changes: -ATROPINE SULFATE 0.1 MG/ML 5ML SYR IV PRN; -BUPIVACAINE 0.25% 30 ML VIAL ONE; -CLINDAMYCIN IV 600 MG in DEXTROSE 5% 50ML 50 ML IV SCH; -FENTANYL CITRATE INJ 50 MCG/1 ML 2 ML VIAL IV PRN; -FENTANYL CITRATE INJ 50 MCG/1 ML 2 ML VIAL ONE; -HYDROCORTISONE SOD SUCCINATE 100 MG/2 ML VIAL ONE; -LACTATED RINGER'S 1000ML 1,000 ML IV SCH; -LIDOCAINE HCL 1% 20 ML VIAL ONE; -LIDOCAINE HCL 2% 2 ML VIAL (20MG/ML) ONE; -MIDAZOLAM HCL 1 MG/ML 2ML VIAL ONE; -MoRPHine SULFATE 2 MG/ML CARP IV PRN; -NURSING VERBAL MED ORDER ONE; -ONDANSETRON INJ 2 MG/ML 2 ML VIAL IV PRN; -OXYCODONE/ACETAMINOPHEN 5-325 TAB PO PRN; -PROPOFOL IV EMULSION 10 MG/ML 20 ML VIAL IV ONE; -SODIUM CHLORIDE 0.9% 1000ML 1,000 ML IV SCH
--- NOTE | 2016-12-25 17:11 | DIAGNOSTIC IMAGING REPORT ---
CHEST 2 VIEWS ROUTINE CLINICAL HISTORY: INCIDENTAL PULMONARY NODULE lung nodule. COMPARISON STUDY: 12/22/2016 FINDINGS: Central catheters. Vena cava. Lungs are currently considered clear. No significant pulmonary nodularity. IMPRESSION: Negative chest. No significant pulmonary nodularity based on this exam. The above report was generated using voice recognition software. It may contain grammatical, syntax or spelling errors. Electronically signed by: Man Sharif M.D. 12/25/2016 5:10 PM Dictated Date/Time: 12/25/2016 5:07 PM
== END | disposition home or self-care (01) ==
LOC: C.RAD 16:48
PROVIDERS: ATTEND Student in an Organized Health Care Education/Training Program
DX: R91.8 Other nonspecific abnormal finding of lung field (principal)

== ENCOUNTER → 2017-06-05 | Outpatient (CLI) | payer OTHER ==
[~2017-06-05] MED LIST changes: -LINA1CAP PO; -OXYC-57 PO
--- NOTE | 2017-06-05 17:20 | DIAGNOSTIC IMAGING REPORT ---
KUB CLINICAL HISTORY: Generalized abdominal pain. Constipation. FINDINGS: 2 AP supine abdominal radiographs are compared to study dated 11/06/2016. There is a nonobstructed abdominal bowel gas pattern noting mild to moderate colonic fecal retention. Cholecystectomy clips are seen in the right upper quadrant. A surgical clip, suture material, and an intrauterine device are noted in the pelvis. There are small pelvic phleboliths. The bony structures appear intact. IMPRESSION: Nonobstructed abdominal bowel gas pattern noting mild to moderate colonic fecal retention. Electronically signed by: Kirk Burgos M.D. 06/05/2017 5:19 PM Dictated Date/Time: 06/05/2017 5:18 PM
== END | disposition home or self-care (01) ==
LOC: C.RAD 16:34
PROVIDERS: ATTEND Internal Medicine Gastroenterology
DX: K59.00 Constipation, unspecified (principal); R10.9 Unspecified abdominal pain

== ENCOUNTER → 2017-06-08 | Outpatient (CLI) | payer OTHER | END | disposition home or self-care (01) | LOC: C.MAMM 15:33 | PROVIDERS: ATTEND Family Medicine | DX: M85.88 Other specified disorders of bone density and structure, other site (principal); M85.851 Other specified disorders of bone density and structure, right thigh; M85.852 Other specified disorders of bone density and structure, left thigh; R63.8 Other symptoms and signs concerning food and fluid intake; R63.6 Underweight ==

== ENCOUNTER → 2017-07-22 | Outpatient (CLI) | payer OTHER ==
[~2017-07-22] MED LIST changes: +BCPILLS PO; +ISOT1CAP PO; -LINA1CAP; +LINA1CAP PO; +LVS125 UT
--- NOTE | 2017-07-22 11:44 | DIAGNOSTIC IMAGING REPORT ---
ABDOMEN 2VIEW W/PA CHEST RTN CLINICAL HISTORY: Weight loss COMPARISON STUDY: 06/05/2017 FINDINGS: The erect chest reveals a left-sided A-Port catheter. There is no free intraperitoneal air. There is no focal pulmonary consolidation. Erect and supine views the abdomen reveal a peritoneal catheter. There are no abnormally dilated loops of large or small bowel. There are no transition zones indicate bowel obstruction. There are surgical clips in the right upper quadrant consistent with a prior cholecystectomy. An IUD is visualized. There is a surgical clip within the right adnexal region. IMPRESSION: No evidence of bowel obstruction. No evidence of free air. Electronically signed by: Sudeep Buck M.D. 07/22/2017 11:42 AM Dictated Date/Time: 07/22/2017 11:41 AM
== END | disposition home or self-care (01) ==
LOC: C.RADBC 11:24
PROVIDERS: ATTEND Family Medicine
DX: R10.9 Unspecified abdominal pain (principal); R63.4 Abnormal weight loss

== ENCOUNTER 2017-07-25 19:02 | Emergency (ER) | payer OTHER ==
[~2017-07-25] VITALS: Ht 162.6 cm; Wt 49.0 kg
[~2017-07-25 19:02] MED LIST changes: -BCPILLS PO; -DICY10CA55 PO; -ISOT1CAP PO; -LVS125 UT; -[UNRECOGNIZED DRUG - CODE] PO
[2017-07-25 19:12] VITALS: Ht 162.6 cm; Wt 49.0 kg
--- NOTE | 2017-07-25 19:50 | EMERGENCY ROOM VISIT NOTE ---
History Report prepared by Sylvester: Addy Garcia Under the Supervision of: Dr. Rere Morales D.O. First contact with patient: 19:38 Chief Complaint: DIARRHEA Stated Complaint: DIARRHEA,PAIN,NAUSEA,BLACKING OUT Nursing Triage Summary: Patient reports being constipated and taking a bowel regimen. Patient reports diarhea and abd pain. History of Present Illness The patient is a 27 year old female who presents to the Emergency Room with complaints of intermittent diarrhea beginning 5 days ago. The patient states that she has had chronic stomach problems for a few years that worsened after she got a second surgery for her endometriosis. She notes that after she had her surgery, she lost 15 pounds in a month and had a tube placed for feeding. She reports that she cannot tolerate her tube feeding anymore because she gets right abdominal pain and persistent diarrhea. The patient states that her diet was changed two weeks in order to combat her weight loss, which has caused her to have her diarrhea and abdominal pain. She notes that her diarrhea is mostly watery, and reports that it does not contain any blood or black stool. The patient states that her abdominal pain worsens when she eats, has a bowel movement, or has a tube feed. She notes that when she has a tube feed, her right abdomen becomes distended. She reports that she has taken tramadol with no relief of her pain. The patient states that she has a history of SMA syndrome. She notes that she has a family history of IBS and diverticulitis. Pt denies headache, change in vision, fevers, chills, chest pain, shortness of breath, nausea, vomiting, pain with urination, and melena. Source of History: patient Onset: 5 days ago Position: other (bowels) Quality: other (diarrhea) Timing: intermittent Associated Symptoms: + abdominal pain (right-sided), No fevers, No chills, No headache, No chest pain, No SOB, No nausea, No vomiting, No melena, No urinary symptoms Note: The patient denies any blood in her diarrhea and change in her vision. Review of Systems See HPI for pertinent positives & negatives. A total of 10 systems reviewed and were otherwise negative. Past Medical & Surgical Medical Problems: (1) Allergic reaction (2) Allergic reaction (3) Allergic reaction caused by a drug (4) Asthma (5) Crohn's disease (6) Endometriosis (7) Hypotension (8) SMAS (superior mesenteric artery syndrome) Surgical Problems: (1) H/O adenoidectomy (2) H/O laparoscopy (3) H/O lumpectomy (4) History of release of tendon (5) Hx of tonsillectomy (6) S/P cholecystectomy (7) S/P wrist surgery (8) [place] teeth extracted Family History Diabetes mellitus FHx: cancer FHx: diverticulitis FHx: heart disease FHx: irritable bowel syndrome Gallbladder disease Hypertension Kidney stones Seizures Social History Smoking Status: Never Smoker Alcohol Use: none Drug Use: none Marital Status: single Housing Status: lives with family Occupation Status: [employer] student Current/Historical Medications Scheduled Control Pills ( Control Pills), 1 TAB PO DAILY Hydrocortisone (Cortef), 25 MG PO QAM Hydrocortisone (Cortef), 10 MG PO QPM Hydrocortisone (Cortef), 5 MG PO HS Isotretinoin (Zenatane), 40 MG PO HS Linaclotide (Linzess), 145 MCG PO DAILY Pantoprazole (Protonix), 40 MG PO QAM Ranitidine HCl (Ranitidine HCl), 150 MG PO HS Thyroid (Nature-Throid), 97.5 MG PO QAM Scheduled PRN Albuterol Hfa (Ventolin Hfa), 2 PUFFS INH Q6H PRN for SOB/Wheezing Azelastine Hcl (Astelin Nasal [place]), 1-2 SPRAYS NA BID PRN for Rhinitis Cetirizine (Zyrtec), 10 MG PO DAILY PRN for Allergy Symptoms Dicyclomine Hcl (Bentyl), 10-20 MG PO Q6H PRN for Abdominal Pain Hyoscyamine Sulfate (Hyoscyamine Sulfate), 0.125 MG UT Q4H PRN for Abdominal Cramping Ondansetron Hcl (Zofran), 4 MG PO Q6H PRN for Nausea Trimethobenzamide Hcl (Trimethobenzamide Hcl), 300 MG PO TID PRN for Nausea Allergies Coded Allergies: Amoxicillin (Verified Allergy, Intermediate, RASH, 01/08/17) Cefazolin (Verified Allergy, Intermediate, rash, 01/08/17) Cephalosporins (Verified Allergy, Intermediate, HIVES, 01/08/17) Clavulanic Acid (Verified Allergy, Intermediate, HIVES, 01/08/17) Penicillins (Verified Allergy, Intermediate, HIVES, 01/08/17) Prochlorperazine (Verified Allergy, Intermediate, HIVES, 01/08/17) Promethazine (Verified Allergy, Intermediate, hives, throat swelling, 01/08) Sulfamethoxazole w/Trimethoprim (Verified Allergy, Intermediate, RASH, ) Sumatriptan (Verified Allergy, Intermediate, RASH, 01/08/17) Diphenhydramine (Verified Adverse Reaction, Intermediate, Tachycardia, Severe Anxiety WITH IV ONLY, 01/08/17) Only with IV administration. Can take PO Erythromycin (Verified Adverse Reaction, Intermediate, GI SYMPTOMS, ) Physical Exam Vital Signs Date Time Temp Pulse Resp B/P (MAP) Pulse Ox O2 Delivery O2 Flow Rate FiO2 07/25/17 23:05 81 16 120/65 98 07/25/17 22:10 76 16 124/76 96 Room Air 07/25/17 20:20 36.4 101 16 112/71 98 Room Air 07/25/17 19:12 36.7 113 18 97 Room Air Physical Exam GENERAL: alert, no distress, non-toxic, cachectic appearing EYE EXAM: normal conjunctiva, PERRL and EOM's grossly intact OROPHARYNX: no exudate, no erythema, lips, buccal mucosa, and tongue normal and mucous membranes are moist NECK: supple, no nuchal rigidity, no adenopathy, non-tender LUNGS: Clear to auscultation. Normal chest wall mechanics HEART: no murmurs, S1 normal and S2 normal ABDOMEN: abdomen soft, normo-active bowel sounds, no masses, feeding tube noted in left middle abdomen, no surrounding erythema, no drainage or discharge, mild tenderness in RLQ but no rebound or guarding. BACK: Back is symmetrical on inspection and there is no deformity, no midline tenderness, no CVA tenderness. SKIN: no rashes and no bruising UPPER EXTREMITIES: upper extremities are grossly normal. LOWER EXTREMITIES: No pitting edema. NEURO EXAM: Normal sensorium, cranial nerves II-XII grossly intact, normal speech, no gross weakness of arms, no gross weakness of legs. Medical Decision & Procedures ER Provider Diagnostic Interpretation: Radiology results have been interpreted by the radiologist and reviewed by me. ABDOMEN 2VIEW W/PA CHEST RTN FINDINGS: Cardiomediastinal and hilar silhouettes are within normal limits. Left subclavian [id number]-j-[id number] catheter is unchanged. No pneumothorax, pleural effusion or focal airspace consolidation. Bones of the chest appear grossly intact. Surgical clips project over the abdominal right upper quadrant. Bowel gas pattern is nonobstructive. Intrauterine device is noted. Peritoneal catheter is again noted coiling within the central abdomen. Surgical clip projects over the right hemipelvis. No urolith or organomegaly identified. No pneumatosis or pneumoperitoneum. IMPRESSION: 1. No acute processes of the chest. 2. Nonobstructive bowel gas pattern without pneumoperitoneum. The above report was generated using voice recognition software. It may contain grammatical, syntax or spelling errors. Electronically signed by: Danny Sow M.D. 07/25/2017 10:03 PM Laboratory Results 07/25/17 20:25 Red Blood Count 4.32, Mean Corpuscular Volume 92.4, Mean Corpuscular Hemoglobin 31.5, Mean Corpuscular Hemoglobin Concent 34.1, Mean Platelet Volume 10.2, Neutrophils (%) (Auto) 85.4, Lymphocytes (%) (Auto) 11.0, Monocytes (%) (Auto) 2.9, Eosinophils (%) (Auto) 0.2, Basophils (%) (Auto) 0.2, Neutrophils # (Auto) 10.24, Lymphocytes # (Auto) 1.32, Monocytes # (Auto) 0.35, Eosinophils # (Auto) 0.02, Basophils # (Auto) 0.02 07/25/17 20:25 Test 07/25/17 20:25 07/25/17 20:32 White Blood Count 11.99 K/uL (4.8-10.8) Red Blood Count 4.32 M/uL (4.2-5.4) Hemoglobin 13.6 g/dL (12.0-16.0) Hematocrit 39.9 % (37-47) Mean Corpuscular Volume 92.4 fL (80-100) Mean Corpuscular Hemoglobin 31.5 pg (25-34) Mean Corpuscular Hemoglobin Concent 34.1 g/dl (32-36) Platelet Count 287 K/uL (130-400) Mean Platelet Volume 10.2 fL (7.4-10.4) Neutrophils (%) (Auto) 85.4 % Lymphocytes (%) (Auto) 11.0 % Monocytes (%) (Auto) 2.9 % Eosinophils (%) (Auto) 0.2 % Basophils (%) (Auto) 0.2 % Neutrophils # (Auto) 10.24 K/uL (1.4-6.5) Lymphocytes # (Auto) 1.32 K/uL (1.2-3.4) Monocytes # (Auto) 0.35 K/uL (0.11-0.59) Eosinophils # (Auto) 0.02 K/uL (0-0.5) Basophils # (Auto) 0.02 K/uL (0-0.2) RDW Standard Deviation 40.7 fL (36.4-46.3) RDW Coefficient of Variation 12.0 % (11.5-14.5) Immature Granulocyte % (Auto) 0.3 % Immature Granulocyte # (Auto) 0.04 K/uL (0.00-0.02) Anion Gap 8.0 mmol/L (3-11) Est Creatinine Clear Calc Drug Dose 100.8 ml/min Estimated GFR () 142.3 Estimated GFR (Non- 122.8 BUN/Creatinine Ratio 15.0 (10-20) Calcium Level 8.9 mg/dl (8.5-10.1) Phosphorus Level 3.3 mg/dl (2.5-4.9) Magnesium Level 2.0 mg/dl (1.8-2.4) Total Bilirubin 0.3 mg/dl (0.2-1) Aspartate Amino Transf (AST/SGOT) 15 U/L (15-37) Alanine Aminotransferase (ALT/SGPT) 20 U/L (12-78) Alkaline Phosphatase 61 U/L (45-117) Total Protein 7.1 gm/dl (6.4-8.2) Albumin 3.8 gm/dl (3.4-5.0) Globulin 3.3 gm/dl (2.5-4.0) Albumin/Globulin Ratio 1.2 (0.9-2) Lipase 108 U/L (73-393) Bedside Lactic Acid Venous 0.61 mmol/L (0.90-1.70) Laboratory results per my review. Medications Administered Medications (Trade) Dose Ordered Sig/Amber Route Start Time Stop Time Status Last Admin Dose Admin Sodium Chloride 1,000 ml @ 999 mls/hr Q1H1M STAT IV 07/25/17 19:51 07/25/17 20:51 DC 07/25/17 20:30 999 MLS/HR Ondansetron HCl (Zofran Inj) 4 mg NOW STAT IV 07/25/17 20:33 07/25/17 20:34 DC 07/25/17 20:35 4 MG Hydromorphone HCl (Dilaudid Inj) 0.5 mg NOW STAT IV 07/25/17 21:53 07/25/17 21:54 DC 07/25/17 21:57 0.5 MG Ondansetron HCl (Zofran Inj) 4 mg NOW STAT IV 07/25/17 22:25 07/25/17 22:26 DC 07/25/17 22:37 4 MG Heparin Sodium (Porcine) (Heparin 100 Unit/ml 5ml Flush) 5 ml STK-MED ONCE .ROUTE 07/25/17 22:36 07/25/17 22:37 DC 07/25/17 22:38 5 ML ED Course 1938: The patient was evaluated in room C3. A complete history and physical exam was performed. 2006: I reviewed a 2 View Abdomen with Chest X-RAY from 07/22/2017 per EMR. 2032: Zofran Inj 4mg IV 2152: I reevaluated and updated the patient. She wants Dilaudid. 2152: Dilaudid HCl 0.5mg IV 2216: I rechecked the patient. She is feeling better. 2224: Zofran Inj 4mg IV 2250: Upon reevaluation, the patient is feeling better. I discussed the findings and the treatment plan with the patient. She verbalizes agreement and understanding. The patient was discharged home. Medical Decision Differential diagnosis: Etiologies such as appendicitis, diverticulitis, PUD, biliary pathology, UTI, pancreatitis, obstruction, mesenteric ischemia, aortic pathology, infections, inflammatory bowel disease, renal colic, as well as others were entertained. Patient well-appearing here, stated felt improved following IV fluids and dose of pain medication. Stool recently noted on x-ray earlier this week now appears resolved on visualization of x-rays. Discussed with patient continued bowel regimen as recommended by her GI doctor as well as close follow-up given what appears to be improvement in x-rays. Discussed continued use of her other routine medications as well as nighttime infusions of tube feeds. Did not feel patient warranted repeat CT of the abdomen and pelvis and patient would like to avoid that if possible given that she has had multiple CTs already. Labs otherwise reassuring, vital signs stable throughout. Patient was tolerating sips of p.o. and felt improved at time of discharge, ambulating with a steady gait. No fevers or leukocytosis, doubt occult infectious etiology. Doubt bowel obstruction, mesenteric ischemia, perforation, GI bleed. Discussed with her follow-up regarding what they were previously told is SMA syndrome contributing to her abdominal pain and GI issues. Discussed symptoms to watch and return for, she and mom verbalized understanding were agreeable with plan, and comfortable at time of discharge. Medication Reconcilliation Current Medication List: was personally reviewed by me Blood Pressure Screening Patient's blood pressure: Normal blood pressure Blood pressure disposition: Did not require urgent referral Impression Primary Impression: Abdominal pain Additional Impressions: Nausea & vomiting Dehydration Scribe Attestation The scribe's documentation has been prepared under my direction and personally reviewed by me in its entirety. I confirm that the note above accurately reflects all work, treatment, procedures, and medical decision making performed by me. Departure Information Dispostion Home / Self-Care Referrals Mariah Addison D.O. (PCP) Forms HOME CARE DOCUMENTATION FORM, IMPORTANT VISIT INFORMATION, WORK / SCHOOL INSTRUCTIONS Patient Instructions My [facility] Additional Instructions You may stop using the suppositories at this time. Please continue your other current bowel regimen until you speak with your GI doctor on Thursday. You may continue to use the Zofran at home as needed. Please consider slowing down the rate of infusion of your tube feeds is a precaution. If you have any recurrent or worsening pain, noticed black or bloody stools, develop fevers or chills, recurrent vomiting, you have any other new concerns, please return to the emergency room. Problem Qualifiers Primary Impression: Abdominal pain Abdominal location: right lower quadrant Qualified Codes: R10.31 - Right lower quadrant pain Additional Impressions: Nausea & vomiting Vomiting type: unspecified Vomiting Intractability: non-intractable Qualified Codes: R11.2 - Nausea with vomiting, unspecified
[2017-07-25] MEDS ORDERED: SODIUM CHLORIDE 0.9% 1000ML 1,000 ML IV STA (19:51)
[2017-07-25 20:20] VITALS: TEMP 36.4
[2017-07-25] MEDS ORDERED: ONDANSETRON INJ 2 MG/ML 2 ML VIAL IV STA ×2 (20:33→22:25)
[2017-07-25 20:34] LABS: BASO % 0.2 %; BASO ABS # 0.02 K/uL (0-0.2); EOS % 0.2 %; EOS ABS # 0.02 K/uL (0-0.5); HEMATOCRIT 39.9 % (37-47); HEMOGLOBIN 13.6 g/dL (12.0-16.0); IG# 0.04 K/uL (0.00-0.02); LYMPH ABS # 1.32 K/uL (1.2-3.4); MEAN CELL VOLUME 92.4 fL (80-100); MEAN CORPUSCULAR HEMOGLOBIN 31.5 pg (25-34); MEAN CORPUSCULAR HGB CONC 34.1 g/dl (32-36); MEAN PLATELET VOLUME 10.2 fL (7.4-10.4); MONO % 2.9 %; MONO ABS # 0.35 K/uL (0.11-0.59); NEUT % 85.4 %; NEUT ABS # 10.24 K/uL (1.4-6.5); PLATELET COUNT 287 K/uL (130-400); RED CELL DISTRIBUTION WIDTH SD 40.7 fL (36.4-46.3); WHITE BLOOD COUNT 11.99 K/uL (4.8-10.8)
[2017-07-25 20:55] LABS: ALBUMIN 3.8 gm/dl (3.4-5.0); CALCIUM 8.9 mg/dl (8.5-10.1); CREATININE 0.66 mg/dl (0.60-1.20); POTASSIUM 3.7 mmol/L (3.5-5.1)
[2017-07-25 20:57] LABS: PHOSPHORUS 3.3 mg/dl (2.5-4.9); TOTAL PROTEIN 7.1 gm/dl (6.4-8.2)
[2017-07-25] MEDS ORDERED: LVS125 UT (21:16)
[2017-07-25] MEDS ORDERED: HYDR10TA52 PO ×3 (21:16)
[2017-07-25] MEDS ORDERED: BCPILLS PO (21:17)
[2017-07-25] MEDS ORDERED: ISOT1CAP PO ×2 (21:20→21:21)
[2017-07-25] MEDS ORDERED: [UNRECOGNIZED DRUG - CODE] PO (21:37)
[2017-07-25] MEDS ORDERED: HYDROmorphone INJ 0.5 MG/0.5 ML SYR IV STA (21:53)
[2017-07-25] MEDS ORDERED: DICY10CA55 PO (21:58)
--- NOTE | 2017-07-25 22:04 | DIAGNOSTIC IMAGING REPORT ---
ABDOMEN 2VIEW W/PA CHEST RTN HISTORY: 27 years-old Female rlq abd pain, hx constipation, now diarrhea acute right lower quadrant abdominal pain COMPARISON: Acute abdominal series radiographs 07/22/2017 TECHNIQUE: PA view the chest with erect and supine views of the abdomen FINDINGS: Cardiomediastinal and hilar silhouettes are within normal limits. Left subclavian Pcgpho-n-Xgft catheter is unchanged. No pneumothorax, pleural effusion or focal airspace consolidation. Bones of the chest appear grossly intact. Surgical clips project over the abdominal right upper quadrant. Bowel gas pattern is nonobstructive. Intrauterine device is noted. Peritoneal catheter is again noted coiling within the central abdomen. Surgical clip projects over the right hemipelvis. No urolith or organomegaly identified. No pneumatosis or pneumoperitoneum. IMPRESSION: 1. No acute processes of the chest. 2. Nonobstructive bowel gas pattern without pneumoperitoneum. The above report was generated using voice recognition software. It may contain grammatical, syntax or spelling errors. Electronically signed by: Danny Sow M.D. 07/25/2017 10:03 PM Dictated Date/Time: 07/25/2017 10:01 PM
[2017-07-25 23:05] VITALS: BP 120/65; PULSE 81; O2SAT 98
== END 2017-07-25 23:06 | disposition home or self-care (01) ==
LOC: C.EDB 19:03 → C.EDC 23:06
DX: R10.31 Right lower quadrant pain (principal); R11.2 Nausea with vomiting, unspecified; E86.0 Dehydration; K50.90 Crohn's disease, unspecified, without complications; K55.1 Chronic vascular disorders of intestine; Z93.1 Gastrostomy status; J45.909 Unspecified asthma, uncomplicated; N80.9 Endometriosis, unspecified; Z79.3 Long term (current) use of hormonal contraceptives; Z90.49 Acquired absence of other specified parts of digestive tract; Z98.890 Other specified postprocedural states; Z83.3 Family history of diabetes mellitus; Z83.79 Family history of other diseases of the digestive system; Z82.49 Family history of ischemic heart disease and other diseases of the circulatory system; Z84.1 Family history of disorders of kidney and ureter; Z82.0 Family history of epilepsy and other diseases of the nervous system; Z88.0 Allergy status to penicillin; Z88.1 Allergy status to other antibiotic agents; Z88.2 Allergy status to sulfonamides; Z88.8 Allergy status to other drugs, medicaments and biological substances

== ENCOUNTER → 2017-07-30 | Outpatient (CLI) | payer OTHER ==
[~2017-07-30] MED LIST changes: +BCPILLS PO; +DICY10CA55 PO; -HYOS1TAB PO; +ISOT1CAP PO; +LVS125 UT; -NORE1TAB50 PO; +[UNRECOGNIZED DRUG - CODE] PO
--- NOTE | 2017-07-30 14:02 | DIAGNOSTIC IMAGING REPORT ---
KUB CLINICAL HISTORY: CONSTIPATION obstruction COMPARISON STUDY: 07/25/2017 FINDINGS: Nonobstructive bowel pattern. Catheter is again noted. Intrauterine device is present. No evidence of bowel distention. No evidence for fecal impaction. IMPRESSION: No acute process. Nonobstructive bowel pattern. The above report was generated using voice recognition software. It may contain grammatical, syntax or spelling errors. Electronically signed by: Man Sharif M.D. 07/30/2017 2:01 PM Dictated Date/Time: 07/30/2017 2:00 PM
== END | disposition home or self-care (01) ==
LOC: C.RAD 13:40
PROVIDERS: ATTEND Internal Medicine Gastroenterology
DX: K59.00 Constipation, unspecified (principal)

== ENCOUNTER 2017-08-13 11:52 | Emergency (ER) | payer OTHER ==
[~2017-08-13] VITALS: Ht 167.6 cm; Wt 47.6 kg
[~2017-08-13 11:52] MED LIST changes: -ASTN; -BCPILLS PO; -DICY10CA55 PO; -HYDR10TA52 PO; -ISOT1CAP PO; -LVS125 UT; -PANT40TA PO; -RANI150T2 PO; -THYR65TA11 PO; -[UNRECOGNIZED DRUG - CODE] PO
[2017-08-13 12:06] VITALS: TEMP 36.6; Ht 167.6 cm; Wt 47.6 kg
[2017-08-13] MEDS ORDERED: DOCU100T7 PO (12:21)
[2017-08-13] MEDS: METOCLOPRAMIDE HCL INJ 5 MG/ML 2 ML VIAL IV. STA ×2 (12:48→13:16)
--- NOTE | 2017-08-13 12:55 | EMERGENCY ROOM VISIT NOTE ---
History First contact with patient: 12:20 Chief Complaint: PAIN (GENERALIZED) Stated Complaint: WEIGHT LOSS, PAIN, SMA SYMPTOMS, REFERRED BY History of Present Illness The patient is a 27 year old female who presents to the Emergency Room with complaints of nausea, vomiting and abdominal pain that has been progressively worse over the last few weeks. The patient has a history of SMA syndrome. She underwent surgery for this in July 2015. The patient also has a GJ tube. She is supposed to be running her tube feeds at night at 60 cc an hour. She has not been able to run the past 20 without having nausea and vomiting. She denies any fever. She has also had some diarrhea. Of note, the patient had her tube feeds changed from Osmolite to Nutren a few weeks ago. Review of Systems 10 system review performed and negative unless noted in HPI or below Past Medical/Surgical History Medical Problems: (1) Allergic reaction (2) Allergic reaction (3) Allergic reaction caused by a drug (4) Asthma (5) Crohn's disease (6) Endometriosis (7) Hypotension (8) SMAS (superior mesenteric artery syndrome) Surgical Problems: (1) H/O adenoidectomy (2) H/O laparoscopy (3) H/O lumpectomy (4) History of release of tendon (5) Hx of tonsillectomy (6) S/P cholecystectomy (7) S/P wrist surgery (8) [place] teeth extracted Family History Diabetes mellitus FHx: cancer FHx: diverticulitis FHx: heart disease FHx: irritable bowel syndrome Gallbladder disease Hypertension Kidney stones Seizures Social History Smoking Status: Never Smoker Alcohol Use: none Drug Use: none Marital Status: single Housing Status: lives with family Occupation Status: [employer] student Current/Historical Medications Scheduled Control Pills ( Control Pills), 1 TAB PO DAILY Docusate Sodium (Stool Softener), 100 MG PO BID Hydrocortisone (Cortef), 25 MG PO QAM Hydrocortisone (Cortef), 10 MG PO QPM Hydrocortisone (Cortef), 5 MG PO HS Isotretinoin (Zenatane), 40 MG PO HS Linaclotide (Linzess), 145 MCG PO DAILY Ondasetron Odt (Zofran Odt), 4 MG SL Q6H Pantoprazole (Protonix), 40 MG PO QAM Ranitidine HCl (Ranitidine HCl), 150 MG PO HS Thyroid (Nature-Throid), 97.5 MG PO QAM Scheduled PRN Albuterol Hfa (Ventolin Hfa), 2 PUFFS INH Q6H PRN for SOB/Wheezing Azelastine Hcl (Astelin Nasal [place]), 1-2 SPRAYS NA BID PRN for Rhinitis Cetirizine (Zyrtec), 10 MG PO DAILY PRN for Allergy Symptoms Dicyclomine Hcl (Bentyl), 10-20 MG PO Q6H PRN for Abdominal Pain Hyoscyamine Sulfate (Hyoscyamine Sulfate), 0.125 MG UT Q4H PRN for Abdominal Cramping Ondansetron Hcl (Zofran), 4 MG PO Q6H PRN for Nausea Trimethobenzamide Hcl (Trimethobenzamide Hcl), 300 MG PO TID PRN for Nausea Physical Exam Vital Signs Date Time Temp Pulse Resp B/P (MAP) Pulse Ox O2 Delivery O2 Flow Rate FiO2 08/13/17 18:40 84 18 103/69 98 Room Air 08/13/17 16:49 85 18 106/78 98 Room Air 08/13/17 15:04 97 18 105/67 100 Room Air 08/13/17 14:12 85 16 105/75 100 Room Air 08/13/17 12:06 36.6 109 18 81/59 96 Room Air Physical Exam VITALS: Vitals are noted on the nurse's note and reviewed by myself. Vital signs stable. GENERAL: 27-year-old female,, in no acute distress, SKIN: The skin was without rashes, erythema, edema, or bruising.. HEAD: Normocephalic atraumatic. MOUTH: Oral mucosa fairly dry HEART: Regular rate and rhythm without murmurs gallops or rubs. LUNGS: Clear to auscultation bilaterally without wheezes, rales or rhonchi. No accessory muscle use. ABDOMEN: Positive bowel sounds x 4.Soft, tenderness to palpation in the epigastrium, without organomegaly. No guarding or rebound tenderness. MUSCULOSKELETAL: No muscle atrophy, erythema, or edema noted. . Strength 5/5 throughout. NEURO: Patient was alert and oriented to person place and time. Normal sensation to touch. No focal neurological deficits. Medical Decision & Procedures ER Provider Diagnostic Interpretation: CT abd/pelvis IMPRESSION: 1. No acute intra-abdominal pathology. No bowel obstruction. 2. Gastrojejunostomy tube in place. 3. Gas noted in the distal most common bile duct. Prominence of the biliary ducts likely relates to a reservoir effect in the cholecystectomy state. 4. Pancreas divisum. No current evidence of pancreatitis. Electronically signed by: Eugene Kennedy M.D. 08/13/2017 4:38 PM Dictated Date/Time: 08/13/2017 4:27 PM The status of this report is Signed. Draft = Not yet reviewed or approved by Radiologist. Signed = Reviewed and approved by Radiologist. Laboratory Results 08/13/17 13:15 Red Blood Count 4.35, Mean Corpuscular Volume 92.6, Mean Corpuscular Hemoglobin 31.3, Mean Corpuscular Hemoglobin Concent 33.7, Mean Platelet Volume 10.7, Neutrophils (%) (Auto) 42.8, Lymphocytes (%) (Auto) 45.5, Monocytes (%) (Auto) 9.6, Eosinophils (%) (Auto) 1.7, Basophils (%) (Auto) 0.4, Neutrophils # (Auto) 2.24, Lymphocytes # (Auto) 2.38, Monocytes # (Auto) 0.50, Eosinophils # (Auto) 0.09, Basophils # (Auto) 0.02 08/13/17 13:15 Test 08/13/17 13:15 08/13/17 15:07 White Blood Count 5.23 K/uL (4.8-10.8) Red Blood Count 4.35 M/uL (4.2-5.4) Hemoglobin 13.6 g/dL (12.0-16.0) Hematocrit 40.3 % (37-47) Mean Corpuscular Volume 92.6 fL (80-100) Mean Corpuscular Hemoglobin 31.3 pg (25-34) Mean Corpuscular Hemoglobin Concent 33.7 g/dl (32-36) Platelet Count 236 K/uL (130-400) Mean Platelet Volume 10.7 fL (7.4-10.4) Neutrophils (%) (Auto) 42.8 % Lymphocytes (%) (Auto) 45.5 % Monocytes (%) (Auto) 9.6 % Eosinophils (%) (Auto) 1.7 % Basophils (%) (Auto) 0.4 % Neutrophils # (Auto) 2.24 K/uL (1.4-6.5) Lymphocytes # (Auto) 2.38 K/uL (1.2-3.4) Monocytes # (Auto) 0.50 K/uL (0.11-0.59) Eosinophils # (Auto) 0.09 K/uL (0-0.5) Basophils # (Auto) 0.02 K/uL (0-0.2) RDW Standard Deviation 41.1 fL (36.4-46.3) RDW Coefficient of Variation 12.1 % (11.5-14.5) Immature Granulocyte % (Auto) 0.0 % Immature Granulocyte # (Auto) 0.00 K/uL (0.00-0.02) Anion Gap 5.0 mmol/L (3-11) Est Creatinine Clear Calc Drug Dose 89.8 ml/min Estimated GFR () 134.9 Estimated GFR (Non- 116.4 BUN/Creatinine Ratio 16.3 (10-20) Calcium Level 8.9 mg/dl (8.5-10.1) Magnesium Level 2.3 mg/dl (1.8-2.4) Total Bilirubin 0.6 mg/dl (0.2-1) Aspartate Amino Transf (AST/SGOT) 12 U/L (15-37) Alanine Aminotransferase (ALT/SGPT) 16 U/L (12-78) Alkaline Phosphatase 58 U/L (45-117) Total Protein 7.5 gm/dl (6.4-8.2) Albumin 4.3 gm/dl (3.4-5.0) Globulin 3.2 gm/dl (2.5-4.0) Albumin/Globulin Ratio 1.4 (0.9-2) Lipase 116 U/L (73-393) Human Chorionic Gonadotropin, Qual NEG (NEG) Urine Color YELLOW Urine Appearance CLOUDY (CLEAR) Urine pH 6.0 (4.5-7.5) Urine Specific [place] 1.013 (1.000-1.030) Urine Protein NEG (NEG) Urine Glucose (UA) NEG (NEG) Urine Ketones TRACE (NEG) Urine Occult Blood NEG (NEG) Urine Nitrite NEG (NEG) Urine Bilirubin NEG (NEG) Urine Urobilinogen NEG (NEG) Urine Leukocyte Esterase NEG (NEG) Urine WBC (Auto) 1-5 /hpf (0-5) Urine RBC (Auto) 0-4 /hpf (0-4) Urine Hyaline Casts (Auto) 1-5 /lpf (0-5) Urine Epithelial Cells (Auto) >30 /lpf (0-5) Urine Bacteria (Auto) 1+ (NEG) Medications Administered Medications (Trade) Dose Ordered Sig/Amber Route Start Time Stop Time Status Last Admin Dose Admin Sodium Chloride 1,000 ml @ 999 mls/hr Q1H1M ONCE IV 08/13/17 13:00 08/13/17 14:00 DC 08/13/17 13:00 999 MLS/HR Hydromorphone HCl (Dilaudid Inj) 0.5 mg ONE ONCE IV 08/13/17 13:00 08/13/17 13:06 DC 08/13/17 13:17 0.5 MG Ondansetron HCl (Zofran Inj) 4 mg Q2H PRN IV 08/13/17 13:45 08/13/17 19:01 DC 08/13/17 14:11 4 MG Hydromorphone HCl (Dilaudid Inj) 0.5 mg ONE ONCE IV 08/13/17 14:45 08/13/17 14:46 DC 08/13/17 15:06 0.5 MG Ondansetron HCl (ZOFRAN ODT 4MG Home Pack) 1 homepack UD ONCE PO 08/13/17 18:30 08/13/17 18:31 DC 08/13/17 18:30 1 HOMEPACK ED Course Patient was seen and examined Vital signs including blood pressure were reviewed medications list was verified with patient Labs were obtained, and a saline lock was established The patient was medicated with Dilaudid 0.5 mg IV and Reglan 10 mg IV. She was hydrated with 1 L of normal saline. The patient reported that she has an adverse reaction to Reglan. This was canceled. Zofran was ordered. She did require an additional dose of Dilaudid 0.5 mill grams IV. Her imaging was reviewed. The patient was reassessed and resting comfortably. The case was thoroughly discussed with my supervising physician and subsequently Dr. Connelly from the hospitalist team who knows the patient in the outpatient setting. I thoroughly reviewed the workup with the patient and the patient's mother. They voiced understanding. I reviewed discharge instructions the patient. They voiced understanding and had no further questions. Medical Decision Differential diagnosis: Anorexia, bowel obstruction, gastroenteritis, adverse reaction to tube feeds, SMA syndrome, pancreatitis This patient is a 27-year-old female that presents to the emergency department with persistent vomiting, abdominal pain and a few episodes of diarrhea. The patient has a history of malabsorption syndrome in addition to SMA syndrome. She underwent surgery in 2011. The patient subsequently has a GJ tube in addition to a port. She was sent here for evaluation from her primary care physician for concerns of malnutrition. On exam, the patient was mildly dehydrated. Initially, she was slightly hypotensive and tachycardic. Her labs reveal no leukocytosis. Her electrolytes are within normal limits. There is no elevation in her BUN or creatinine to suggest dehydration. The patient's past weights were evaluated. She had an approximately 4 pound weight loss in the last several weeks. As mentioned before, the patient was initially slightly hypotensive. This resolved with IV hydration. The case was discussed with my supervising physician in addition to the hospitalist group who knows the patient in the outpatient setting. We are all in agreement that the patient does not look severely/acutely malnourished. A CAT scan was performed. There are no significant changes including no signs of obstruction. The patient tolerated all of the oral contrast through her GJ tube with no vomiting. The tube appears to be functioning well. I believe she is stable to be discharged home. Of note, there is concern about anorexia. This has apparently been discussed with the patient and the patient's mother by her primary care physician. She will follow closely in the outpatient setting and continue her tube feeds as tolerated. She will return with worsening or persistent symptoms. This chart was completed in part utilizing [employer] Speech Voice Recognition software. Attempts were made to minimize the grammatical errors, random word insertions, pronoun errors and incomplete sentences. Any formal questions or concerns about the content, text or information contained within the body of this dictation should be directly addressed to the provider for clarification. Medication Reconcilliation Current Medication List: was personally reviewed by me Blood Pressure Screening Patient's blood pressure: Normal blood pressure Impression Primary Impression: Vomiting Departure Information Dispostion Home / Self-Care Condition GOOD Prescriptions Ondasetron Odt (ZOFRAN ODT) 4 Mg Tab 4 MG SL Q6H for Nausea, #20 TAB Prov: Nicole Aldridge PA-C 08/13/17 Referrals Mariah Addison D.O. (PCP) Evan Loaiza M.D. Patient Instructions [facility] Additional Instructions Please continue tube feeds as tolerated Please take Zofran 1 tab under the tongue every 6 hours as needed for nausea Please follow-up with Dr. Addison. Call tomorrow for a follow-up appointment. Please also follow-up with your GI specialist. Call tomorrow for an appointment. Please do not hesitate to return to the ER with any new, worsening or concerning symptoms
[2017-08-13] MEDS ORDERED: HYDROmorphone INJ 1 MG/ML SYR IV ONE ×2 (13:00→14:45)
[2017-08-13] MEDS ORDERED: SODIUM CHLORIDE 0.9% 1000ML 1,000 ML IV ONE (13:00)
[2017-08-13] MEDS ORDERED: OPTIRAY 320 IV PRN (13:00)
[2017-08-13] MEDS ORDERED: PANT40TA PO (13:20)
[2017-08-13 13:24] LABS: BASO % 0.4 %; BASO ABS # 0.02 K/uL (0-0.2); EOS % 1.7 %; EOS ABS # 0.09 K/uL (0-0.5); HEMATOCRIT 40.3 % (37-47); HEMOGLOBIN 13.6 g/dL (12.0-16.0); LYMPH % 45.5 %; LYMPH ABS # 2.38 K/uL (1.2-3.4); MEAN CELL VOLUME 92.6 fL (80-100); MEAN CORPUSCULAR HEMOGLOBIN 31.3 pg (25-34); MEAN CORPUSCULAR HGB CONC 33.7 g/dl (32-36); MEAN PLATELET VOLUME 10.7 fL (7.4-10.4); MONO % 9.6 %; NEUT % 42.8 %; NEUT ABS # 2.24 K/uL (1.4-6.5); PLATELET COUNT 236 K/uL (130-400); RED CELL DISTRIBUTION WIDTH CV 12.1 % (11.5-14.5); RED CELL DISTRIBUTION WIDTH SD 41.1 fL (36.4-46.3); WHITE BLOOD COUNT 5.23 K/uL (4.8-10.8)
[2017-08-13] MEDS ORDERED: ONDANSETRON INJ 2 MG/ML 2 ML VIAL IV PRN (13:45)
[2017-08-13 13:48] LABS: ALBUMIN 4.3 gm/dl (3.4-5.0); CALCIUM 8.9 mg/dl (8.5-10.1); CREATININE 0.72 mg/dl (0.60-1.20); POTASSIUM 3.4 mmol/L (3.5-5.1)
[2017-08-13 13:50] LABS: TOTAL PROTEIN 7.5 gm/dl (6.4-8.2)
[2017-08-13] MEDS ORDERED: ASTN (14:15)
--- NOTE | 2017-08-13 16:39 | DIAGNOSTIC IMAGING REPORT ---
ABD/PELVIS IV AND ORAL CONT CLINICAL HISTORY: 27 years-old Female presenting with n/v/abd pain hx SMA syndrome s/p sx 2011. TECHNIQUE: Multidetector CT of the abdomen and pelvis was performed after the administration of oral and intravenous contrast. IV contrast: 90 mL of Optiray 320. A dose lowering technique was used consistent with the principles of ALARA (as low as reasonably achievable). COMPARISON: 01/30/2016. CT DOSE (mGy.cm): The estimated cumulative dose is 223.70 mGycm. FINDINGS: Ship Mate topogram: Cholecystectomy clips and a gastrojejunostomy tube noted. Lung bases: Lungs and pleural spaces clear. Normal heart size. No pericardial or pleural effusion. Liver: Normal morphology. No liver lesion. Patent hepatic vasculature. Biliary: Mild biliary ductal prominence likely a reservoir effect in the post cholecystectomy state. Gas noted in the distal most common bile duct. Gallbladder surgically absent. Pancreas: Pancreas divisum noted. Pancreatic parenchyma normal. Spleen: Normal. Adrenal glands: Normal. Kidneys and ureters: Normal. No hydronephrosis. Bladder: Normal. Pelvic organs: An intrauterine device is in place in the endometrial cavity. Ovaries normal. Fluid noted in the vagina. Bowel: Oral contrast has transited to the splenic flexure. No bowel obstruction. The appendix is normal. A gastrojejunostomy tube is in place, which terminates near the ligament of Treitz. No small bowel abnormality. Peritoneal cavity: No free fluid or intraperitoneal gas. Lymph nodes: No enlarged lymph nodes in the abdomen or pelvis. Vasculature: Aorta and IVC patent and normal in caliber. The aortomesenteric angle is normal, measuring 30 degrees (normal 55 to 60 degrees). However, the aortomesenteric distance is 5 mm (normal 10 to 28 mm). Abdominal wall: Normal. 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 IMPRESSION: 1. No acute intra-abdominal pathology. No bowel obstruction. 2. Gastrojejunostomy tube in place. 3. Gas noted in the distal most common bile duct. Prominence of the biliary ducts likely relates to a reservoir effect in the cholecystectomy state. 4. Pancreas divisum. No current evidence of pancreatitis. Electronically signed by: Eugene Kennedy M.D. 08/13/2017 4:38 PM Dictated Date/Time: 08/13/2017 4:27 PM
[2017-08-13] MEDS ORDERED: THYR65TA11 PO (18:09)
[2017-08-13] MEDS ORDERED: RANI150T2 PO (18:09)
[2017-08-13] MEDS ORDERED: ONDA4TAB10 SL (18:29)
[2017-08-13] MEDS ORDERED: ONDANSETRON HOME PACK 4MG OD TAB PO ONE (18:30)
[2017-08-13 18:40] VITALS: BP 103/69; PULSE 84; O2SAT 98
[2017-08-13] MEDS ORDERED: HYDR10TA52 PO ×3 (21:16)
[2017-08-13] MEDS ORDERED: LVS125 UT (21:16)
[2017-08-13] MEDS ORDERED: BCPILLS PO (21:17)
[2017-08-13] MEDS ORDERED: ISOT1CAP PO (21:21)
[2017-08-13] MEDS ORDERED: [UNRECOGNIZED DRUG - CODE] PO (21:37)
[2017-08-13] MEDS ORDERED: DICY10CA55 PO (21:58)
== END 2017-08-13 18:57 | disposition home or self-care (01) ==
LOC: C.EDB 11:54 → C.EDC 18:57
DX: R11.10 Vomiting, unspecified (principal); J45.909 Unspecified asthma, uncomplicated; K50.90 Crohn's disease, unspecified, without complications; I10 Essential (primary) hypertension; Z83.3 Family history of diabetes mellitus; Z82.49 Family history of ischemic heart disease and other diseases of the circulatory system; Z82.0 Family history of epilepsy and other diseases of the nervous system

== ENCOUNTER → 2017-09-08 | Outpatient (CLI) | payer OTHER ==
[~2017-09-08] MED LIST changes: +ASTN; +BCPILLS PO; +DICY10CA55 PO; +DOCU100T7 PO; +HYDR10TA52 PO; +ISOT1CAP PO; +LVS125 UT; +ONDA4TAB10 SL; +PANT40TA PO; +RANI150T2 PO; +THYR65TA11 PO; +[UNRECOGNIZED DRUG - CODE] PO
--- NOTE | 2017-09-08 09:40 | DIAGNOSTIC IMAGING REPORT ---
L EXTREMITY NONVASCULAR LIMITED CLINICAL HISTORY: PAIN AROUND JTUBE SITE pain TECHNIQUE: Ultrasound COMPARISON STUDY: None FINDINGS: Ultrasonic evaluation of the soft tissues surrounding the patient's J-tube insertion site shows no evidence for abscess or collection. No significant edematous tissues identified. IMPRESSION: No evidence for soft tissue abnormality at the site of J-tube insertion The above report was generated using voice recognition software. It may contain grammatical, syntax or spelling errors. Electronically signed by: Man Sharif M.D. 09/08/2017 9:39 AM Dictated Date/Time: 09/08/2017 9:38 AM
== END | disposition home or self-care (01) ==
LOC: C.ULTR 09:00
PROVIDERS: ATTEND Family Medicine
DX: K94.19 Other complications of enterostomy (principal)

== ENCOUNTER → 2017-09-08 | Outpatient (CLI) | payer OTHER ==
[~2017-09-08] MED LIST changes: +OXYC1TAB3 PO
[2017-09-08 17:54] LABS: BASO % 0.3 %; BASO ABS # 0.02 K/uL (0-0.2); EOS % 0.6 %; EOS ABS # 0.04 K/uL (0-0.5); HEMATOCRIT 37.8 % (37-47); HEMOGLOBIN 12.4 g/dL (12.0-16.0); IG# 0.01 K/uL (0.00-0.02); LYMPH % 20.6 %; LYMPH ABS # 1.38 K/uL (1.2-3.4); MEAN CELL VOLUME 95.5 fL (80-100); MEAN CORPUSCULAR HEMOGLOBIN 31.3 pg (25-34); MEAN CORPUSCULAR HGB CONC 32.8 g/dl (32-36); MONO % 5.4 %; MONO ABS # 0.36 K/uL (0.11-0.59); NEUT ABS # 4.89 K/uL (1.4-6.5); PLATELET COUNT 165 K/uL (130-400); RED CELL DISTRIBUTION WIDTH CV 12.5 % (11.5-14.5); RED CELL DISTRIBUTION WIDTH SD 43.4 fL (36.4-46.3)
[2017-09-08 18:12] LABS: ALKALINE PHOSPHATASE 54 U/L (45-117); ALT/SGPT 20 U/L (12-78); AST/SGOT 20 U/L (15-37); BLOOD UREA NITROGEN 13 mg/dl (7-18); CALCIUM 8.6 mg/dl (8.5-10.1); CARBON DIOXIDE 24 mmol/L (21-32); CREATININE 0.93 mg/dl (0.60-1.20); GLUCOSE 145 mg/dl (70-99); PHOSPHORUS 3.2 mg/dl (2.5-4.9); POTASSIUM 3.7 mmol/L (3.5-5.1); SODIUM 138 mmol/L (136-145); TOTAL PROTEIN 7.1 gm/dl (6.4-8.2)
== END | disposition home or self-care (01) ==
LOC: C.LABSPEC 17:08
PROVIDERS: ATTEND Internal Medicine Gastroenterology
DX: Z01.89 Encounter for other specified special examinations (principal)

== ENCOUNTER → 2017-10-01 | Outpatient (CLI) | payer OTHER ==
--- NOTE | 2017-10-01 15:57 | DIAGNOSTIC IMAGING REPORT ---
RENAL ULTRASOUND HISTORY: JEJUNOSTOMY TUBE SITE PAIN COMPARISON: Abdomen and pelvis CT 08/13/2017. FINDINGS: Right kidney: 10.2 cm. No hydronephrosis. Normal corticomedullary differentiation and cortical thickness. Left kidney: 9.7 cm. No hydronephrosis. Normal corticomedullary differentiation and cortical thickness. Bladder: No bladder wall thickening. The bilateral ureteral jets were identified. IMPRESSION: Normal renal ultrasound. Electronically signed by: Victor Hugo Snowden M.D. 10/01/2017 3:56 PM Dictated Date/Time: 10/01/2017 3:55 PM
== END | disposition home or self-care (01) ==
LOC: C.ULTRBC 15:11
PROVIDERS: ATTEND Family Medicine
DX: R10.9 Unspecified abdominal pain (principal)

== ENCOUNTER 2017-10-05 15:23 | Emergency (ER) | payer OTHER ==
[~2017-10-05] VITALS: Ht 167.6 cm; Wt 48.0 kg
[~2017-10-05 15:23] MED LIST changes: -OXYC1TAB3 PO
[2017-10-05 15:28] VITALS: Ht 167.6 cm; Wt 48.0 kg
[2017-10-05] MEDS ORDERED: ONDANSETRON INJ 2 MG/ML 2 ML VIAL IV STA (16:25)
[2017-10-05] MEDS ORDERED: MoRPHine SULFATE 4 MG/ML 1 ML CARP\\VIAL IV STA (16:25)
--- NOTE | 2017-10-05 16:39 | EMERGENCY ROOM VISIT NOTE ---
History First contact with patient: 15:41 Chief Complaint: FLANK PAIN Stated Complaint: POSSIBLE KIDNEY STONE History of Present Illness The patient is a 27 year old female who presents to the Emergency Room with complaints of R sided flank pain. The flank pain is rotated on the R side. It started one week ago. She describes it as a pressure that becomes a sharp pain. The pain radiates towards the patients groin. She said the pain is made worse with urination. She has not used in medications. She describes the pain as a 7/10-->10/10 in severity. Associated symptoms include nausea, and vaginal spotting which started last week. (she does not have periods as she is on the IUD and oral control pill) She denies any dysuria, hematuria, no abnormal urine smell, no fevers or chills , no vomiting, no diarrhea She had a normal renal US on and was checked for a UTI as an outpatient which was normal. She has a significant PMH of endometriosis, SMA syndrome, Sphincter of oddi dysfunction and adrenal insufficiency. She follows with [facility] [place] and Endo/ GI at [facility] Review of Systems CONSTITUTIONAL: No fever, chills, sweats or night sweats. No recent infections. No weight loss or weight gain. NEUROLOGIC: No headaches, dizziness or syncopal episodes. HEENT: No hearing or visual changes. No sinus or nasal issues. No mouth sores, thrush or oral lesions. CARDIOVASCULAR: No chest pain or palpitations. RESPIRATORY: No SOB, dyspnea, cough or hemoptysis. GASTROINTESTINAL: Nausea no vomiting, diarrhea, constipation, reflux, melena or hematochezia. GENITOURINARY: No dysuria, frequency, urgency, incontinence or hematuria. SKIN: No rashes or skin lesions. No hair loss or nail changes. HEMATOLOGIC: Vaginal bleeding Past Medical/Surgical History Medical Problems: (1) Allergic reaction (2) Allergic reaction (3) Allergic reaction caused by a drug (4) Asthma (5) Crohn's disease (6) Endometriosis (7) Hypotension (8) SMAS (superior mesenteric artery syndrome) Surgical Problems: (1) H/O adenoidectomy (2) H/O laparoscopy (3) H/O lumpectomy (4) History of release of tendon (5) Hx of tonsillectomy (6) S/P cholecystectomy (7) S/P wrist surgery (8) [place] teeth extracted Family History Diabetes mellitus FHx: cancer FHx: diverticulitis FHx: heart disease FHx: irritable bowel syndrome Gallbladder disease Hypertension Kidney stones Seizures Social History Smoking Status: Never Smoker Alcohol Use: none Drug Use: none Marital Status: single Housing Status: lives with family Occupation Status: [employer] student Current/Historical Medications Scheduled Control Pills ( Control Pills), 1 TAB PO DAILY Docusate Sodium (Stool Softener), 100 MG PO BID Hydrocortisone (Cortef), 25 MG PO QAM Hydrocortisone (Cortef), 10 MG PO QPM Hydrocortisone (Cortef), 5 MG PO HS Isotretinoin (Zenatane), 40 MG PO HS Linaclotide (Linzess), 145 MCG PO DAILY Pantoprazole (Protonix), 40 MG PO QAM Ranitidine HCl (Ranitidine HCl), 150 MG PO HS Thyroid (Nature-Throid), 97.5 MG PO QAM Scheduled PRN Albuterol Hfa (Ventolin Hfa), 2 PUFFS INH Q6H PRN for SOB/Wheezing Azelastine Hcl (Astelin Nasal Boomer), 1-2 SPRAYS NA BID PRN for Rhinitis Cetirizine (Zyrtec), 10 MG PO DAILY PRN for Allergy Symptoms Dicyclomine Hcl (Bentyl), 10-20 MG PO Q6H PRN for Abdominal Pain Hyoscyamine Sulfate (Hyoscyamine Sulfate), 0.125 MG UT Q4H PRN for Abdominal Cramping Ondansetron Hcl (Zofran), 4 MG PO Q6H PRN for Nausea Oxycodone Immediate Rel Tab (Roxicodone Ir), 1-2 TAB PO Q4H PRN for Severe Pain Trimethobenzamide Hcl (Trimethobenzamide Hcl), 300 MG PO TID PRN for Nausea Physical Exam Vital Signs Date Time Temp Pulse Resp B/P (MAP) Pulse Ox O2 Delivery O2 Flow Rate FiO2 10/05/17 18:41 36.6 109 20 106/74 97 10/05/17 15:28 36.6 109 20 106/74 97 Room Air Physical Exam HEENT: Head - normocephalic and atraumatic. Pupils are equal, round, and reactive to light. Extraocular eye muscles are intact and sclera are anicteric. Ears - bilaterally patent canals with noninjected tympanic membranes and no evidence of hemotympanum. Nose - moist nasal mucosa without discharge. Mouth - moist buccal mucosa. Oropharynx is nonerythematous and there is no tonsillar exudate or edema noted. Neck: Supple; no JVD, nuchal rigidity, cervical lymphadenopathy, or auscultated bruits. Heart: Regular rate and rhythm. There is a normal S1 and S2 with no murmurs, clicks, or gallops appreciated. She has a port in place for TPN therapy which appears clean Lungs: Clear to auscultation bilaterally with no wheezes, rales, or rhonchi. Abdomen: Soft, completely nontender, nondistended, with good bowel sounds. There are no palpable pulsatile masses or hepatosplenomegaly. There is no guarding, rigidity, or rebound noted. She has a GJ tube in place that appears clean. Extremities: No evidence of cyanosis, clubbing, or edema. There are easily palpable peripheral pulses. Back: CVA tenderness on the R side, no CVA tenderness on the L side Medical Decision & Procedures Laboratory Results 10/05/17 16:39 Red Blood Count 4.19, Mean Corpuscular Volume 91.9, Mean Corpuscular Hemoglobin 31.3, Mean Corpuscular Hemoglobin Concent 34.0, Mean Platelet Volume 10.2, Neutrophils (%) (Auto) 79.5, Lymphocytes (%) (Auto) 14.9, Monocytes (%) (Auto) 4.9, Eosinophils (%) (Auto) 0.3, Basophils (%) (Auto) 0.3, Neutrophils # (Auto) 5.71, Lymphocytes # (Auto) 1.07, Monocytes # (Auto) 0.35, Eosinophils # (Auto) 0.02, Basophils # (Auto) 0.02 10/05/17 16:39 Test 10/05/17 16:39 White Blood Count 7.18 K/uL (4.8-10.8) Red Blood Count 4.19 M/uL (4.2-5.4) Hemoglobin 13.1 g/dL (12.0-16.0) Hematocrit 38.5 % (37-47) Mean Corpuscular Volume 91.9 fL (80-100) Mean Corpuscular Hemoglobin 31.3 pg (25-34) Mean Corpuscular Hemoglobin Concent 34.0 g/dl (32-36) Platelet Count 268 K/uL (130-400) Mean Platelet Volume 10.2 fL (7.4-10.4) Neutrophils (%) (Auto) 79.5 % Lymphocytes (%) (Auto) 14.9 % Monocytes (%) (Auto) 4.9 % Eosinophils (%) (Auto) 0.3 % Basophils (%) (Auto) 0.3 % Neutrophils # (Auto) 5.71 K/uL (1.4-6.5) Lymphocytes # (Auto) 1.07 K/uL (1.2-3.4) Monocytes # (Auto) 0.35 K/uL (0.11-0.59) Eosinophils # (Auto) 0.02 K/uL (0-0.5) Basophils # (Auto) 0.02 K/uL (0-0.2) RDW Standard Deviation 41.6 fL (36.4-46.3) RDW Coefficient of Variation 12.3 % (11.5-14.5) Immature Granulocyte % (Auto) 0.1 % Immature Granulocyte # (Auto) 0.01 K/uL (0.00-0.02) Urine Color DK YELLOW Urine Appearance CLEAR (CLEAR) Urine pH 6.5 (4.5-7.5) Urine Specific [place] 1.029 (1.000-1.030) Urine Protein NEG (NEG) Urine Glucose (UA) NEG (NEG) Urine Ketones NEG (NEG) Urine Occult Blood NEG (NEG) Urine Nitrite NEG (NEG) Urine Bilirubin NEG (NEG) Urine Urobilinogen NEG (NEG) Urine Leukocyte Esterase NEG (NEG) Anion Gap 6.0 mmol/L (3-11) Est Creatinine Clear Calc Drug Dose 83.5 ml/min Estimated GFR () 122.5 Estimated GFR (Non- 105.7 BUN/Creatinine Ratio 19.7 (10-20) Calcium Level 8.8 mg/dl (8.5-10.1) Total Bilirubin 0.3 mg/dl (0.2-1) Aspartate Amino Transf (AST/SGOT) 15 U/L (15-37) Alanine Aminotransferase (ALT/SGPT) 20 U/L (12-78) Alkaline Phosphatase 61 U/L (45-117) Total Protein 7.5 gm/dl (6.4-8.2) Albumin 4.0 gm/dl (3.4-5.0) Globulin 3.5 gm/dl (2.5-4.0) Albumin/Globulin Ratio 1.1 (0.9-2) Lipase 166 U/L (73-393) Human Chorionic Gonadotropin, Qual NEG (NEG) Medications Administered Medications (Trade) Dose Ordered Sig/Amber Route Start Time Stop Time Status Last Admin Dose Admin Morphine Sulfate (MoRPHine SULFATE INJ) 4 mg NOW STAT IV 10/05/17 16:25 10/05/17 16:28 DC 10/05/17 17:10 4 MG Ondansetron HCl (Zofran Inj) 4 mg NOW STAT IV 10/05/17 16:25 10/05/17 16:28 DC 10/05/17 17:11 4 MG Sodium Chloride 1,000 ml @ 999 mls/hr Q1H1M IV 10/05/17 16:30 11/04/17 16:29 10/05/17 17:11 999 MLS/HR Famotidine 20 mg/ Dextrose 102 ml @ 200 mls/hr NOW STAT IV 10/05/17 17:30 10/05/17 18:04 DC 10/05/17 18:11 200 MLS/HR Hydromorphone HCl (Dilaudid Inj) 0.5 mg STK-MED ONCE .ROUTE 10/05/17 17:34 10/05/17 17:35 DC 10/05/17 17:37 0.5 MG ED Course 1600: Patient was seen and examined by myself 1614: I discussed the case with Dr. Chapin. Labs were ordered and the patient was given IV morphine, zofran and IV fluids. 1720: Patients labs returned as normal. The morphine was noted to give her hives and make her spincter of oddi dysfunction worse so she was therefore given dilaudid 0.5mg. 1820: Patient was feeling mildly better. Was decided to discharge with pain meds and push her IV fluids at home. Mother and patient were agreeable with this plan. Medical Decision Patient with a complicated past medical history came to the ED with persistent R flank pain. She had a CBC, CMP, Lipase and UA which returned as normal. She was given pain meds and IV fluids which relieved her abdominal pain. Due to a recent CT scan done two months it was decided to hold off on another CT scan at this point and to treat symptomatically. She was in agreement with this plan. She was sent home with oxycodone 20mg q6 prn for 5 days. She will be following up with her PCP as well as her specialists. Impression Primary Impression: Right flank pain Departure Information Dispostion Home / Self-Care Condition GOOD Prescriptions Oxycodone Immediate Rel Tab (ROXICODONE IR) 5 Mg Tab 1-2 TAB PO Q4H Y for Severe Pain, #20 TAB Prov: Fausto Chapin, 10/05/17 Referrals Mariah Addison D.OKing (PCP) Patient Instructions [facility] Resident Tracking Resident Involvement: Resident Care Provided Care Provided: Adult ED
[2017-10-05 17:06] LABS: BASO % 0.3 %; BASO ABS # 0.02 K/uL (0-0.2); EOS % 0.3 %; EOS ABS # 0.02 K/uL (0-0.5); HEMATOCRIT 38.5 % (37-47); HEMOGLOBIN 13.1 g/dL (12.0-16.0); IG# 0.01 K/uL (0.00-0.02); LYMPH % 14.9 %; LYMPH ABS # 1.07 K/uL (1.2-3.4); MEAN CELL VOLUME 91.9 fL (80-100); MEAN CORPUSCULAR HEMOGLOBIN 31.3 pg (25-34); MEAN PLATELET VOLUME 10.2 fL (7.4-10.4); MONO % 4.9 %; MONO ABS # 0.35 K/uL (0.11-0.59); NEUT % 79.5 %; NEUT ABS # 5.71 K/uL (1.4-6.5); PLATELET COUNT 268 K/uL (130-400); RED CELL DISTRIBUTION WIDTH CV 12.3 % (11.5-14.5); RED CELL DISTRIBUTION WIDTH SD 41.6 fL (36.4-46.3); WHITE BLOOD COUNT 7.18 K/uL (4.8-10.8)
[2017-10-05] MEDS: SODIUM CHLORIDE 0.9% 1000ML 1,000 ML IV SCH ×2 (17:11→17:31)
--- NOTE | 2017-10-05 17:13 | EMERGENCY ROOM VISIT NOTE ---
ED Visit Note First contact with patient: 15:41 Resident Physician Supervision Note: I was present with Dr. Parker during the history and exam. I discussed the case with the resident and agree with the findings and plan as documented in the note. Any exceptions or clarifications are listed here: Documented By: Fausto Chapin
[2017-10-05 17:16] LABS: CALCIUM 8.8 mg/dl (8.5-10.1); CREATININE 0.78 mg/dl (0.60-1.20); POTASSIUM 3.6 mmol/L (3.5-5.1); TOTAL PROTEIN 7.5 gm/dl (6.4-8.2)
[2017-10-05] MEDS ORDERED: HYDROmorphone INJ 0.5 MG/0.5 ML SYR IV STA (17:29)
[2017-10-05] MEDS ORDERED: DiphenhydrAMINE HCL 50 MG/ML VIAL IV STA (17:29)
[2017-10-05] MEDS ORDERED: FAMOTIDINE IV INJ 20 MG in DEXTROSE 5% 100ML 100 ML IV STA (17:30)
[2017-10-05] MEDS ORDERED: HYDROmorphone INJ 0.5 MG/0.5 ML SYR ONE (17:34)
[2017-10-05] MEDS ORDERED: OXYC1TAB3 PO (18:29)
[2017-10-05 18:41] VITALS: BP 106/74; PULSE 109; TEMP 36.6; O2SAT 97
== END 2017-10-05 18:42 | disposition home or self-care (01) ==
LOC: C.EDB 15:24
DX: R10.9 Unspecified abdominal pain (principal); Z97.5 Presence of (intrauterine) contraceptive device; N80.9 Endometriosis, unspecified; J45.909 Unspecified asthma, uncomplicated; K50.90 Crohn's disease, unspecified, without complications; K55.1 Chronic vascular disorders of intestine; Z90.89 Acquired absence of other organs; Z90.49 Acquired absence of other specified parts of digestive tract; Z98.818 Other dental procedure status; Z98.890 Other specified postprocedural states; Z83.3 Family history of diabetes mellitus; Z82.49 Family history of ischemic heart disease and other diseases of the circulatory system; Z84.1 Family history of disorders of kidney and ureter; Z82.0 Family history of epilepsy and other diseases of the nervous system; Z83.79 Family history of other diseases of the digestive system

== ENCOUNTER → 2017-10-08 | Outpatient (CLI) | payer OTHER ==
[~2017-10-08] MED LIST changes: -ONDA4TAB10 SL; +OXYC1TAB3 PO
--- NOTE | 2017-10-08 13:43 | DIAGNOSTIC IMAGING REPORT ---
CT OF THE ABDOMEN AND PELVIS WITHOUT CONTRAST CLINICAL HISTORY: Right flank pain. COMPARISON STUDY: CT of the abdomen and pelvis August 13, 2017, renal ultrasound October 01, 2017. TECHNIQUE: Axial images of the abdomen and pelvis were obtained without IV contrast. Images were reviewed in the axial, sagittal, and coronal planes. A dose lowering technique was utilized adhering to the principles of ALARA. FINDINGS: Lung bases are clear. No pneumatosis, free air or portal venous gas is present. No renal, ureteral or bladder calculi are present. There is no hydronephrosis or hydroureter. Gastrojejunostomy tube is in place as is an intrauterine device. The appendix is surgically absent. There is no evidence for a bowel obstruction. Evaluation of the abdomen and pelvis is suboptimal as unenhanced exam. The liver, spleen, adrenal glands, kidneys and pancreas are normal. There is no biliary ductal dilatation status post cholecystectomy. There are no suspicious osseous lesions. IMPRESSION: 1. No urinary calculi or hydronephrosis. 2. No acute process within the abdomen or pelvis on unenhanced exam. 3. Gastrojejunostomy tube in place Electronically signed by: Ruperto Lopez M.D. 10/08/2017 1:42 PM Dictated Date/Time: 10/08/2017 1:31 PM
--- NOTE | 2017-10-08 13:51 | DIAGNOSTIC IMAGING REPORT ---
KUB HISTORY: Acute right flank pain R FLANK PAIN COMPARISON: CT abdomen and pelvis of same day FINDINGS: The bowel gas pattern is non-obstructive. Enteric tube projects over the gastric lumen. Cholecystectomy clips noted. Intrauterine device of the central pelvis. Surgical clips about the right hemipelvis. There is no organomegaly. No renal calculi. No ureteral calculi. No pneumoperitoneum or pneumatosis. No fracture. IMPRESSION: 1. PEG tube projects over the gastric lumen. 2. Nonobstructive bowel gas pattern. Electronically signed by: Danny Sow M.D. 10/08/2017 1:49 PM Dictated Date/Time: 10/08/2017 1:41 PM
== END | disposition home or self-care (01) ==
LOC: C.CTS 13:06
PROVIDERS: ATTEND Family Medicine
DX: R10.11 Right upper quadrant pain (principal)

== ENCOUNTER → 2017-11-02 | Outpatient (CLI) | payer OTHER ==
[~2017-11-02] MED LIST changes: +OXYC-737 PO; -OXYC1TAB3 PO
[2017-11-02 15:49] LABS: BASO % 0.4 %; BASO ABS # 0.03 K/uL (0-0.2); EOS % 1.5 %; EOS ABS # 0.11 K/uL (0-0.5); HEMATOCRIT 35.5 % (37-47); HEMOGLOBIN 11.6 g/dL (12.0-16.0); LYMPH % 46.3 %; LYMPH ABS # 3.35 K/uL (1.2-3.4); MEAN CELL VOLUME 95.4 fL (80-100); MEAN CORPUSCULAR HEMOGLOBIN 31.2 pg (25-34); MEAN CORPUSCULAR HGB CONC 32.7 g/dl (32-36); MEAN PLATELET VOLUME 10.7 fL (7.4-10.4); MONO % 7.1 %; MONO ABS # 0.51 K/uL (0.11-0.59); NEUT % 44.7 %; NEUT ABS # 3.23 K/uL (1.4-6.5); PLATELET COUNT 257 K/uL (130-400); RED CELL DISTRIBUTION WIDTH CV 13.1 % (11.5-14.5); RED CELL DISTRIBUTION WIDTH SD 45.9 fL (36.4-46.3); WHITE BLOOD COUNT 7.23 K/uL (4.8-10.8)
[2017-11-02 15:56] LABS: INR 1.1 (0.9-1.1)
[2017-11-02 16:07] LABS: ALBUMIN 3.6 gm/dl (3.4-5.0); ALKALINE PHOSPHATASE 51 U/L (45-117); ALT/SGPT 16 U/L (12-78); AST/SGOT 15 U/L (15-37); BLOOD UREA NITROGEN 13 mg/dl (7-18); CALCIUM 8.5 mg/dl (8.5-10.1); CARBON DIOXIDE 23 mmol/L (21-32); CREATININE 0.68 mg/dl (0.60-1.20); GLUCOSE 68 mg/dl (70-99); PHOSPHORUS 3.6 mg/dl (2.5-4.9); POTASSIUM 3.4 mmol/L (3.5-5.1); SODIUM 140 mmol/L (136-145); TOTAL PROTEIN 6.5 gm/dl (6.4-8.2)
--- NOTE | 2017-12-01 11:22 | CODING QUERY NO DIAGNOSIS ---
Valid Physician Order Needed A valid physician order must be submitted in order to properly bill for the service(s) provided, including date of service(s), valid diagnosis, and physician signature. If these tests are done on a recurring basis the original physician order must be submitted in order to code and bill for the service(s) provided. Please fax us the original, signed physician order so that we may expedite billing to [phone] DOS 11/02/17 * CBC W/AUTO DIFF * SERUM PHOSPHORUS * TRIGLYCERIDES * MAGNESIUM * CMP * BILIRUBIN DIRECT * GGT * PROTHROMBIN TIME Thank you James [facility] Information Management
== END | disposition home or self-care (01) ==
LOC: C.LABSPEC 14:07
PROVIDERS: ATTEND Internal Medicine Gastroenterology
DX: K50.90 Crohn's disease, unspecified, without complications (principal); K55.1 Chronic vascular disorders of intestine

== ENCOUNTER → 2017-11-23 | Outpatient (CLI) | payer OTHER ==
[2017-11-23 14:37] LABS: BASO % 0.2 %; BASO ABS # 0.02 K/uL (0-0.2); EOS % 1.2 %; HEMOGLOBIN 12.2 g/dL (12.0-16.0); IG# 0.01 K/uL (0.00-0.02); LYMPH % 40.8 %; LYMPH ABS # 3.42 K/uL (1.2-3.4); MEAN CELL VOLUME 96.1 fL (80-100); MEAN CORPUSCULAR HEMOGLOBIN 31.7 pg (25-34); MEAN PLATELET VOLUME 11.4 fL (7.4-10.4); MONO % 9.3 %; MONO ABS # 0.78 K/uL (0.11-0.59); NEUT % 48.4 %; NEUT ABS # 4.06 K/uL (1.4-6.5); PLATELET COUNT 280 K/uL (130-400); RED CELL DISTRIBUTION WIDTH SD 45.4 fL (36.4-46.3); WHITE BLOOD COUNT 8.39 K/uL (4.8-10.8)
[2017-11-23 15:41] LABS: ALBUMIN 3.7 gm/dl (3.4-5.0); ALKALINE PHOSPHATASE 50 U/L (45-117); ALT/SGPT 13 U/L (12-78); AST/SGOT 13 U/L (15-37); BLOOD UREA NITROGEN 10 mg/dl (7-18); CALCIUM 8.3 mg/dl (8.5-10.1); CARBON DIOXIDE 24 mmol/L (21-32); CREATININE 0.85 mg/dl (0.60-1.20); GLUCOSE 78 mg/dl (70-99); PHOSPHORUS 3.7 mg/dl (2.5-4.9); POTASSIUM 3.3 mmol/L (3.5-5.1); SODIUM 141 mmol/L (136-145); TOTAL PROTEIN 6.7 gm/dl (6.4-8.2)
== END | disposition home or self-care (01) ==
LOC: C.LABSPEC 13:21
PROVIDERS: ATTEND Internal Medicine Gastroenterology
DX: R10.9 Unspecified abdominal pain (principal); G89.29 Other chronic pain

== ENCOUNTER → 2017-12-07 | Outpatient (CLI) | payer OTHER ==
[2017-12-07 12:18] LABS: HEMOGLOBIN 12.3 g/dL (12.0-16.0); MEAN CORPUSCULAR HEMOGLOBIN 31.1 pg (25-34); MEAN CORPUSCULAR HGB CONC 32.4 g/dl (32-36); MEAN PLATELET VOLUME 11.8 fL (7.4-10.4); PLATELET COUNT 257 K/uL (130-400); RED CELL DISTRIBUTION WIDTH CV 12.4 % (11.5-14.5); RED CELL DISTRIBUTION WIDTH SD 43.3 fL (36.4-46.3); WHITE BLOOD COUNT 6.74 K/uL (4.8-10.8)
[2017-12-07 12:31] LABS: ALKALINE PHOSPHATASE 48 U/L (45-117); ALT/SGPT 14 U/L (12-78); AST/SGOT 13 U/L (15-37); BLOOD UREA NITROGEN 10 mg/dl (7-18); CALCIUM 8.7 mg/dl (8.5-10.1); CARBON DIOXIDE 25 mmol/L (21-32); CREATININE 0.94 mg/dl (0.60-1.20); GLUCOSE 81 mg/dl (70-99); POTASSIUM 3.4 mmol/L (3.5-5.1); SODIUM 141 mmol/L (136-145); TOTAL PROTEIN 7.1 gm/dl (6.4-8.2)
[2017-12-07 12:39] LABS: BASO % 0.4 %; BASO ABS # 0.03 K/uL (0-0.2); EOS % 1.2 %; EOS ABS # 0.08 K/uL (0-0.5); LYMPH % 50.4 %; MONO % 8.8 %; MONO ABS # 0.59 K/uL (0.11-0.59); NEUT % 39.2 %; NEUT ABS # 2.64 K/uL (1.4-6.5)
== END | disposition home or self-care (01) ==
LOC: C.LABSPEC 11:06
PROVIDERS: ATTEND Internal Medicine Gastroenterology
DX: R10.9 Unspecified abdominal pain (principal); G89.29 Other chronic pain

== ENCOUNTER → 2017-12-10 | Outpatient (CLI) | payer OTHER ==
--- NOTE | 2017-12-10 17:38 | DIAGNOSTIC IMAGING REPORT ---
KUB CLINICAL HISTORY: Generalized abdominal pain COMPARISON STUDY: 10/08/2017 FINDINGS: There is no pathologic bowel dilatation. There are surgical clips within the right upper quadrant consistent with a prior cholecystectomy. Postsurgical changes are present within the pelvis. An IUD is visualized. There is an overlying enteric catheter. There are no calcifications suspicious for urinary tract calculi. Pelvic basin calcifications remain stable and likely represent phleboliths. IMPRESSION: No evidence of pathologic bowel dilatation. Electronically signed by: Sudeep Buck M.D. 12/10/2017 5:37 PM Dictated Date/Time: 12/10/2017 5:35 PM
== END | disposition home or self-care (01) ==
LOC: C.RAD 17:07
PROVIDERS: ATTEND Internal Medicine Gastroenterology
DX: R10.84 Generalized abdominal pain (principal); K59.00 Constipation, unspecified

== ENCOUNTER → 2017-12-14 | Outpatient (CLI) | payer OTHER ==
[2017-12-14 13:51] LABS: BASO % 0.4 %; BASO ABS # 0.03 K/uL (0-0.2); EOS % 1.3 %; EOS ABS # 0.09 K/uL (0-0.5); HEMATOCRIT 36.5 % (37-47); IG# 0.01 K/uL (0.00-0.02); LYMPH % 48.1 %; LYMPH ABS # 3.36 K/uL (1.2-3.4); MEAN CELL VOLUME 96.6 fL (80-100); MEAN CORPUSCULAR HEMOGLOBIN 31.7 pg (25-34); MEAN CORPUSCULAR HGB CONC 32.9 g/dl (32-36); MEAN PLATELET VOLUME 11.3 fL (7.4-10.4); MONO % 7.2 %; NEUT % 42.9 %; PLATELET COUNT 260 K/uL (130-400); RED CELL DISTRIBUTION WIDTH CV 12.4 % (11.5-14.5); WHITE BLOOD COUNT 6.99 K/uL (4.8-10.8)
[2017-12-14 14:30] LABS: ALKALINE PHOSPHATASE 46 U/L (45-117); ALT/SGPT 13 U/L (12-78); AST/SGOT 12 U/L (15-37); BLOOD UREA NITROGEN 12 mg/dl (7-18); CALCIUM 8.6 mg/dl (8.5-10.1); CARBON DIOXIDE 25 mmol/L (21-32); CREATININE 0.84 mg/dl (0.60-1.20); GLUCOSE 83 mg/dl (70-99); POTASSIUM 3.4 mmol/L (3.5-5.1); SODIUM 141 mmol/L (136-145); TOTAL PROTEIN 6.8 gm/dl (6.4-8.2)
--- NOTE | 2017-12-21 19:55 | CODING QUERY NO DIAGNOSIS ---
TREATMENT RENDERED WITHOUT A DIAGNOSIS 01/21/25 To promote full compliance with coding requirements relating to patient care, physician participation is requested in all cases of pest control operator uncertainty. Please assist us with providing a diagnosis/symptom for the test(s) below: A diagnosis/symptom was not documented on your Order. A valid diagnosis/symptom is required to bill all insurances. Please remember that we are unable to code a diagnosis of rule out, probable, possible, questionable, or suspected. DOS 12/14/17 Tests that require a diagnosis: * COMP METABOLIC DIAGNOSIS: * MAGNESIUM DIAGNOSIS: * PHOSPHORUS DIAGNOSIS: * TRIGLYCERIDES DIAGNOSIS: * CBC W/AUTO DIFF DIAGNOSIS: Provider Signature: Date: Thank you Patti [facility] Information Management Once completed, please kindly fax back to [phone] For questions please call [phone]
== END | disposition home or self-care (01) ==
LOC: C.LABSPEC 12:45
PROVIDERS: ATTEND Internal Medicine Gastroenterology
DX: Z01.89 Encounter for other specified special examinations (principal)

== ENCOUNTER → 2017-12-21 | Outpatient (CLI) | payer OTHER ==
[2017-12-21 14:45] LABS: BASO % 0.4 %; BASO ABS # 0.04 K/uL (0-0.2); EOS % 1.6 %; EOS ABS # 0.14 K/uL (0-0.5); HEMATOCRIT 36.6 % (37-47); HEMOGLOBIN 11.9 g/dL (12.0-16.0); IG# 0.01 K/uL (0.00-0.02); LYMPH % 43.5 %; LYMPH ABS # 3.91 K/uL (1.2-3.4); MEAN CELL VOLUME 97.9 fL (80-100); MEAN CORPUSCULAR HEMOGLOBIN 31.8 pg (25-34); MEAN CORPUSCULAR HGB CONC 32.5 g/dl (32-36); MEAN PLATELET VOLUME 11.3 fL (7.4-10.4); MONO % 9.1 %; MONO ABS # 0.82 K/uL (0.11-0.59); NEUT % 45.3 %; NEUT ABS # 4.06 K/uL (1.4-6.5); PLATELET COUNT 271 K/uL (130-400); RED CELL DISTRIBUTION WIDTH CV 12.4 % (11.5-14.5); RED CELL DISTRIBUTION WIDTH SD 44.2 fL (36.4-46.3); WHITE BLOOD COUNT 8.98 K/uL (4.8-10.8)
[2017-12-21 15:01] LABS: ALBUMIN 3.8 gm/dl (3.4-5.0); ALKALINE PHOSPHATASE 53 U/L (45-117); ALT/SGPT 15 U/L (12-78); AST/SGOT 13 U/L (15-37); BLOOD UREA NITROGEN 11 mg/dl (7-18); CALCIUM 8.1 mg/dl (8.5-10.1); CARBON DIOXIDE 23 mmol/L (21-32); CREATININE 0.89 mg/dl (0.60-1.20); GLUCOSE 76 mg/dl (70-99); PHOSPHORUS 3.7 mg/dl (2.5-4.9); POTASSIUM 3.6 mmol/L (3.5-5.1); SODIUM 139 mmol/L (136-145); TOTAL PROTEIN 6.7 gm/dl (6.4-8.2)
--- NOTE | 2017-12-30 11:53 | CODING QUERY NO DIAGNOSIS ---
Valid Physician Order Needed A valid physician order must be submitted in order to properly bill for the service(s) provided, including date of service(s), valid diagnosis, and physician signature. If these tests are done on a recurring basis the original physician order must be submitted in order to code and bill for the service(s) provided. Please fax us the original, signed physician order so that we may expedite billing to [phone] DOS 12/21/2017 * CBC W/AUTO DIFF * SERUM PHOSPHORUS * TRIGLYCERIDES * MAGNESIUM * CMP * GGT Thank you [facility] Information Management
== END | disposition home or self-care (01) ==
LOC: C.LABSPEC 13:20
PROVIDERS: ATTEND Internal Medicine Gastroenterology
DX: K50.90 Crohn's disease, unspecified, without complications (principal); K55.1 Chronic vascular disorders of intestine

== ENCOUNTER → 2017-12-28 | Outpatient (CLI) | payer OTHER ==
[2017-12-28 16:06] LABS: BASO % 0.3 %; BASO ABS # 0.02 K/uL (0-0.2); EOS % 1.3 %; EOS ABS # 0.09 K/uL (0-0.5); HEMATOCRIT 37.2 % (37-47); HEMOGLOBIN 12.3 g/dL (12.0-16.0); IG# 0.01 K/uL (0.00-0.02); LYMPH % 49.9 %; MEAN CELL VOLUME 97.4 fL (80-100); MEAN CORPUSCULAR HEMOGLOBIN 32.2 pg (25-34); MEAN CORPUSCULAR HGB CONC 33.1 g/dl (32-36); MEAN PLATELET VOLUME 10.9 fL (7.4-10.4); MONO % 9.4 %; MONO ABS # 0.66 K/uL (0.11-0.59); NEUT ABS # 2.74 K/uL (1.4-6.5); PLATELET COUNT 256 K/uL (130-400); RED CELL DISTRIBUTION WIDTH CV 12.5 % (11.5-14.5); RED CELL DISTRIBUTION WIDTH SD 44.3 fL (36.4-46.3); WHITE BLOOD COUNT 7.02 K/uL (4.8-10.8)
[2017-12-28 16:18] LABS: PHOSPHORUS 3.8 mg/dl (2.5-4.9)
[2017-12-29 16:40] LABS: ALBUMIN 3.9 gm/dl (3.4-5.0); ALKALINE PHOSPHATASE 49 U/L (45-117); ALT/SGPT 14 U/L (12-78); AST/SGOT 16 U/L (15-37); BLOOD UREA NITROGEN 11 mg/dl (7-18); CALCIUM 8.5 mg/dl (8.5-10.1); GLUCOSE 61 mg/dl (70-99); POTASSIUM 3.7 mmol/L (3.5-5.1); SODIUM 140 mmol/L (136-145)
== END | disposition home or self-care (01) ==
LOC: C.LABSPEC 14:42
PROVIDERS: ATTEND Internal Medicine Gastroenterology
DX: K50.90 Crohn's disease, unspecified, without complications (principal); K55.1 Chronic vascular disorders of intestine

== ENCOUNTER 2018-11-18 07:52 | Inpatient (IN) ==
[2018-11-18] MEDS ORDERED: SODIUM CHLORIDE 0.9% 1000ML 2,000 ML IV ONE (08:20)
[2018-11-18] MEDS ORDERED: HYDROmorphone INJ 0.5 MG/0.5 ML SYR IV STA ×2 (08:20→10:59)
[2018-11-18] MEDS ORDERED: KETOROLAC 30 MG/ML VIAL IV STA (08:20)
[2018-11-18] MEDS ORDERED: LORazepam 1 MG/2 ML VIAL IV STA (08:20)
[2018-11-18] MEDS ORDERED: ONDANSETRON HCL 8 MG/54 ML BAG IV STA (08:20)
[2018-11-18 08:29] LABS: Basophils # (auto) 0.01 K/uL (0-0.2); Basophils % (auto) 0.1 %; Eosinophils # (auto) 0.14 K/uL (0-0.5); Eosinophils % (auto) 1.4 %; Hematocrit (blood only) 33.3 % (37-47); Immature Granulocytes # (auto) 0.01 K/uL (0.00-0.02); Immature Granulocytes % (auto) 0.1 %; Lymphocytes # (auto) 0.53 K/uL (1.2-3.4); Lymphocytes % (auto) 5.2 %; Mean Corpuscular Volume 87.2 fL (80-100); Mean Platelet Volume 10.3 fL (7.4-10.4); Monocytes # (auto) 0.94 K/uL (0.11-0.59); Monocytes % (auto) 9.1 %; Neutrophils # (auto) 8.65 K/uL (1.4-6.5); Neutrophils % (auto) 84.1 %; Platelet Count 223 K/uL (130-400); RDW Coefficient of Variation 12.8 % (11.5-14.5); Red Blood Count 3.82 M/uL (4.2-5.4); White Blood Count 10.28 K/uL (4.8-10.8)
--- NOTE | 2018-11-18 08:32 | Emergency Department Note ---
History of Present Illness General Chief complaint: Vomiting Stated complaint: BACK PAIN, VOMITTING Time Seen by Provider: 11/18/18 08:08 History of Present Illness Maximum Pain Intensity: 8 28-year-old female who presents to emergency department with complaint of persistent right-sided abdominal pain, nausea and vomiting. Patient has a history of sphincter of Oddi dysfunction, gastroparesis and dysmotility issues. Patient also requires TPN, and also has a J-tube for drainage. She follows with a specialist at [facility], and has a follow-up appointment on 12/02/2018. The patient reports that she was here 2 days ago with similar symptoms, and has not had any significant relief. The patient has had vomiting since 4 AM. She reports right upper quadrant pain that is sharp in nature, and radiates to the mid back region. The patient is status post cholecystectomy and appendectomy. She denies history of kidney stones or pyelonephritis. She denies any recent urinary symptoms. She denies any fever or chills, and rates her discomfort an 8 out of 10. The patient reports that she has Zofran at home that is not helping. The patient reports that she cannot tolerate other nausea medications. She is also concurrently on Protonix, Zantac and MiraLAX. Home Medications Home Medications Medication Instructions Recorded Confirmed Type albuterol sulfate [ProAir HFA] 2 puff INHALATION QID PRN 03/07/18 11/18/18 History azelastine 1 - 2 spray INTRANASAL BID PRN 03/07/18 11/18/18 History cetirizine [Zyrtec] 10 mg PO HS 03/07/18 11/18/18 History dicyclomine 20 mg PO Q6 PRN 03/07/18 11/18/18 History hydrocortisone 20 mg PO QAM 03/07/18 11/18/18 History hyoscyamine sulfate 0.125 mg SUBLINGUAL Q4 PRN 03/07/18 11/18/18 History linaclotide [Linzess] 145 mcg PO BID 03/07/18 11/18/18 History norethindrone acetate 2.5 mg PO QAM 03/07/18 11/18/18 History ondansetron HCl [Zofran] 4 mg PO Q6 PRN 03/07/18 11/18/18 History pantoprazole [Protonix] 40 mg PO QAM 03/07/18 11/18/18 History ranitidine HCl [Zantac] 150 mg PO BID 03/07/18 11/18/18 History trimethobenzamide 300 mg PO TID PRN 03/07/18 11/18/18 History calcium carbonate [Tums] 400 mg PO BID PRN 08/09/18 11/18/18 History polyethylene glycol 3350 [Miralax] 17 g PO DAILY PRN 08/09/18 11/18/18 History levonorgestrel [Mirena] 20 mcg INTRAUTERINE UD 11/16/18 11/18/18 History Allergies Allergy/AdvReac Type Severity Reaction Status Date / Time amoxicillin Allergy Intermediate RASH Verified 11/18/18 09:27 Bactrim Allergy Intermediate RASH Verified 08/13/17 12:16 cefazolin Allergy Intermediate rash Verified 11/18/18 09:27 Cephalosporins Allergy Intermediate HIVES Verified 11/18/18 09:27 clavulanic acid Allergy Intermediate HIVES Verified 11/18/18 09:27 Penicillins Allergy Intermediate HIVES Verified 11/18/18 09:27 prochlorperazine Allergy Intermediate HIVES Verified 11/18/18 09:27 promethazine Allergy Intermediate hives, Verified 11/18/18 09:27 throat swelling sulfamethoxazole Allergy Intermediate RASH Verified 11/18/18 09:27 sumatriptan Allergy Intermediate RASH Verified 11/18/18 09:27 trimethoprim Allergy Intermediate RASH Verified 11/18/18 09:27 diphenhydramine AdvReac Intermediate Tachycardia, Verified 11/18/18 09:27 Severe Anxiety WITH IV ONLY erythromycin base AdvReac Intermediate GI SYMPTOMS Verified 11/18/18 09:27 Past Med/Surg History Medical History Uses feeding tube Appendicitis, acute (Acute 11/07/13) Endometriosis (Resolved) Asthma (Chronic) SMAS (superior mesenteric artery syndrome) (Chronic) Crohn's disease (Chronic) Hemorrhagic cystitis (Acute) Hypotension UTI (urinary tract infection) (Acute) Sphincter of Oddi dysfunction Surgical History Hx of tonsillectomy (Resolved) H/O adenoidectomy (Resolved) S/P wrist surgery (Resolved) H/O lumpectomy (Resolved) H/O laparoscopy (Resolved) S/P cholecystectomy History of appendectomy History of vascular access device Family History Other No significant family history Social History Preferred Language: [place]arag[place] Communication Ability: Effective 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 Denies difficulty swallowing or oral lesions. PULMONARY: Denies cough, shortness of breath, sputum production or hemoptysis. CARDIOVASCULAR: Denies chest pain, palpitations, dyspnea on exertion, orthopnea or peripheral edema. GASTROINTESTINAL: See HPI. GENITOURINARY: Denies dysuria, frequency, urgency or nocturia. NEUROLOGIC: Denies history of epilepsy, CVA, TIA or chronic headaches. MUSCULOSKELETAL: Denies history of joint tenderness/swelling. SKIN: Denies rashes or lesions. PSYCHIATRIC: Denies history of depression or mental illness. ENDOCRINE: Denies history of diabetes or thyroid disorders. Physical Exam Vital Signs Vital Signs - 24 hr 11/18/18 07:57 11/18/18 08:04 11/18/18 08:07 Temperature 37.5 C Temperature Source Oral Sepsis Recent Fever Within 48 Hours No Sepsis Action Taken by Nursing No Action Required Pulse Rate 137 H 113 H 106 H Pulse Rate [Apical] Pulse Rate from SpO2 Sensor Respiratory Rate 22 38 H 24 Respiratory Effort / Characteristics Non-Labored Spontaneous Respiratory Depth Normal Blood Pressure 108/81 Blood Pressure [Right Arm] Blood Pressure Mean 90 Blood Pressure Mean [Right Arm] Pulse Oximetry 99 Oxygen Delivery Method Room Air 11/18/18 08:14 11/18/18 08:30 11/18/18 09:00 Temperature Temperature Source Sepsis Recent Fever Within 48 Hours Sepsis Action Taken by Nursing Pulse Rate 106 H 116 H Pulse Rate [Apical] 112 H Pulse Rate from SpO2 Sensor Respiratory Rate 20 17 19 Respiratory Effort / Characteristics Respiratory Depth Blood Pressure Blood Pressure [Right Arm] 108/81 Blood Pressure Mean Blood Pressure Mean [Right Arm] 90 Pulse Oximetry Oxygen Delivery Method Room Air 11/18/18 09:30 11/18/18 09:35 11/18/18 10:38 Temperature Temperature Source Sepsis Recent Fever Within 48 Hours Sepsis Action Taken by Nursing Pulse Rate 115 H 113 H Pulse Rate [Apical] 117 H Pulse Rate from SpO2 Sensor Respiratory Rate 21 15 Respiratory Effort / Characteristics Respiratory Depth Blood Pressure 108/68 99/68 L Blood Pressure [Right Arm] 100/60 Blood Pressure Mean 81 78 Blood Pressure Mean [Right Arm] 73 Pulse Oximetry 96 Oxygen Delivery Method Room Air 11/18/18 10:39 11/18/18 10:40 11/18/18 11:00 Temperature 37.3 C Temperature Source Oral Sepsis Recent Fever Within 48 Hours Sepsis Action Taken by Nursing Pulse Rate 135 H 118 H Pulse Rate [Apical] 124 H Pulse Rate from SpO2 Sensor 134 H 118 H Respiratory Rate 16 16 19 Respiratory Effort / Characteristics Respiratory Depth Normal Blood Pressure Blood Pressure [Right Arm] 99/68 L Blood Pressure Mean Blood Pressure Mean [Right Arm] 78 Pulse Oximetry 99 99 97 Oxygen Delivery Method Room Air 11/18/18 11:13 11/18/18 11:14 11/18/18 11:30 Temperature Temperature Source Sepsis Recent Fever Within 48 Hours Sepsis Action Taken by Nursing Pulse Rate 122 H 121 H 130 H Pulse Rate [Apical] Pulse Rate from SpO2 Sensor 123 H 122 H 130 H Respiratory Rate 16 16 15 Respiratory Effort / Characteristics Respiratory Depth Blood Pressure 97/63 L 104/55 L Blood Pressure [Right Arm] Blood Pressure Mean 74 71 Blood Pressure Mean [Right Arm] Pulse Oximetry 98 98 97 Oxygen Delivery Method 11/18/18 11:31 11/18/18 12:00 11/18/18 12:01 Temperature Temperature Source Sepsis Recent Fever Within 48 Hours Sepsis Action Taken by Nursing Pulse Rate 131 H 119 H 109 H Pulse Rate [Apical] Pulse Rate from SpO2 Sensor 130 H 120 H 109 H Respiratory Rate 22 17 19 Respiratory Effort / Characteristics Respiratory Depth Blood Pressure 110/69 Blood Pressure [Right Arm] Blood Pressure Mean 82 Blood Pressure Mean [Right Arm] Pulse Oximetry 97 97 96 Oxygen Delivery Method 11/18/18 12:30 11/18/18 12:31 11/18/18 13:00 Temperature Temperature Source Sepsis Recent Fever Within 48 Hours Sepsis Action Taken by Nursing Pulse Rate 124 H 107 H 108 H Pulse Rate [Apical] Pulse Rate from SpO2 Sensor 120 H 107 H 108 H Respiratory Rate 17 20 20 Respiratory Effort / Characteristics Respiratory Depth Blood Pressure 107/68 107/67 Blood Pressure [Right Arm] Blood Pressure Mean 81 80 Blood Pressure Mean [Right Arm] Pulse Oximetry 97 96 97 Oxygen Delivery Method 11/18/18 13:01 11/18/18 13:30 11/18/18 13:31 Temperature Temperature Source Sepsis Recent Fever Within 48 Hours Sepsis Action Taken by Nursing Pulse Rate 109 H 118 H 117 H Pulse Rate [Apical] Pulse Rate from SpO2 Sensor 110 H 116 H 115 H Respiratory Rate 21 19 13 Respiratory Effort / Characteristics Respiratory Depth Blood Pressure 106/74 Blood Pressure [Right Arm] Blood Pressure Mean 84 Blood Pressure Mean [Right Arm] Pulse Oximetry 97 99 100 Oxygen Delivery Method 11/18/18 14:00 11/18/18 14:01 11/18/18 14:02 Temperature Temperature Source Sepsis Recent Fever Within 48 Hours Sepsis Action Taken by Nursing Pulse Rate 119 H 124 H 122 H Pulse Rate [Apical] Pulse Rate from SpO2 Sensor 119 H 126 H 121 H Respiratory Rate 17 24 20 Respiratory Effort / Characteristics Respiratory Depth Blood Pressure 100/64 100/64 Blood Pressure [Right Arm] Blood Pressure Mean 76 76 Blood Pressure Mean [Right Arm] Pulse Oximetry 100 100 99 Oxygen Delivery Method 11/18/18 14:15 11/18/18 14:16 11/18/18 14:17 Temperature Temperature Source Sepsis Recent Fever Within 48 Hours Sepsis Action Taken by Nursing Pulse Rate 112 H 115 H 114 H Pulse Rate [Apical] Pulse Rate from SpO2 Sensor 111 H 113 H 115 H Respiratory Rate 22 19 22 Respiratory Effort / Characteristics Respiratory Depth Blood Pressure 100/64 100/64 100/64 Blood Pressure [Right Arm] Blood Pressure Mean 76 76 76 Blood Pressure Mean [Right Arm] Pulse Oximetry 99 99 99 Oxygen Delivery Method 11/18/18 14:18 Temperature Temperature Source Sepsis Recent Fever Within 48 Hours Sepsis Action Taken by Nursing Pulse Rate 115 H Pulse Rate [Apical] Pulse Rate from SpO2 Sensor 115 H Respiratory Rate 31 H Respiratory Effort / Characteristics Respiratory Depth Blood Pressure 100/64 Blood Pressure [Right Arm] Blood Pressure Mean 76 Blood Pressure Mean [Right Arm] Pulse Oximetry 99 Oxygen Delivery Method CONSTITUTIONAL: Thin female, alert and oriented X 3. Patient appears in moderate discomfort, rolling on the bed. HEENT: Normocephalic, atraumatic. Pupils equal, round and reactive. No scleral icterus or conjunctival injection/pallor. NECK: Full active range of motion without discomfort. LYMPHATICS: No cervical chain adenopathy. RESPIRATORY: Clear to auscultation bilaterally with no wheezing, crackles, rhonchi or stridor. CARDIOVASCULAR: Regular rate and rhythm with no murmurs, rubs or gallops. GASTROINTESTINAL: Bowel sounds present in all quadrants. Patient has genera lized right-sided tenderness to palpation without abdominal rigidity, guarding or rebound. Negative CVA tenderness. MUSCULOSKELETAL: Full range of motion of all joints without discomfort. INTEGUMENTARY: No rash or other significant dermatologic conditions noted. HEMATOLOGIC: No ecchymosis or petechiae. PSYCHIATRIC: Flat affect. NEUROLOGIC: No focal neurologic deficits noted. Course Patient history and physical exam were performed. Nurse's notes were reviewed. Vital signs were reviewed. It is noted that the patient is usually hypotensive with her normal blood pressure in the upper 90s to low 100 systolic. The patient is tachycardic with a heart rate in the 120s and 130s. She is afebrile. I also reviewed prior medical records, including her visit from 2 days ago. She did have a CT scan performed that showed possible enterocolitis with fluid- filled small and large bowel. IV access was established, and labs were drawn. The patient was hydrated with 2 L of normal saline. She was also initially administered IV Dilaudid, Ativan and Zofran 8 mg IVP. The patient reported minimal relief of symptoms, and was administered an additional Dilaudid 0.5 mg IVP for the end of her ED work-up. Labs were reviewed, showing a stable CBC. Potassium is 3.1. CRP is elevated at 3.12. Lipase and LFTs are normal. Urinalysis showed mild ketonuria without evidence for infection or hematuria. Urine drug screen was only positive for op iates, however this is likely elevated from today's and recent ED visits as she currently does not have any prescription opiates at home. Urine drug screen was otherwise unremarkable. An abdomen obstruction series with a PA chest view did not show any obstructive pattern or free air. The case was further discussed with Dr. Weller, ED attending physician, who recommended hospitalist consultation given her persistent and intractable symptoms. Consultation was made with Dr. Elizabeth, [facility] hospitalist, who evaluated the patient, and also discussed the case further with physicians at [facility]. Please see Dr. Elizabeth's dictation for further hospital course and need for referral to [place] if the patient does not have improvement of symptoms. Administered Medications Hydromorphone HCl (Dilaudid) 0.5 mg IV Q6H PRN PRN Reason: Pain Stop: 12/02/18 16:04 Last Admin: 11/18/18 16:41 Dose: 0.5 mg Documented by: [id number] Potassium Chloride (K Larry / Wtr) 10 meq in 100 mls @ 100 mls/hr IV Q1H EMERALD Stop: 11/18/18 20:29 Last Admin: 11/18/18 18:32 Dose: 100 mls/hr Documented by: [id number] Infusion: 11/18/18 18:25 Dose: 100 mls/hr Documented by: [id number] Admin: 11/18/18 17:25 Dose: 100 mls/hr Documented by: [id number] Ondansetron HCl (Zofran Tab) 4 mg PO Q6 PRN PRN Reason: Nausea Stop: 12/18/18 16:04 Last Admin: 11/18/18 17:24 Dose: 4 mg Documented by: [id number] Discontinued Medications Hydromorphone HCl (Dilaudid) 0.5 mg IV NOW STA Stop: 11/18/18 08:21 Last Admin: 11/18/18 08:35 Dose: 0.5 mg Documented by: [id number] Hydromorphone HCl (Dilaudid) 0.5 mg IV NOW STA Stop: 11/18/18 11:00 Last Admin: 11/18/18 11:14 Dose: 0.5 mg Documented by: [id number] Lorazepam (Ativan) 1 mg in 2 mls @ 2 mls/min IV NOW STA Stop: 11/18/18 08:21 Last Admin: 11/18/18 08:35 Dose: 2 mls/min Documented by: [id number] Sodium Chloride (Nss 1000ml) 2,000 mls @ 999 mls/hr IV .Q2H1M ONE Stop: 11/18/18 10:20 Last Infusion: 11/18/18 10:40 Dose: 0 mls/hr Documented by: [id number] Admin: 11/18/18 08:25 Dose: 999 mls/hr Documented by: [id number] Ondansetron HCl (Zofran) 8 mg in 54 mls @ 216 mls/hr IV NOW STA Stop: 11/18/18 08:34 Last Infusion: 11/18/18 08:51 Dose: 0 mls/hr Documented by: [id number] Admin: 11/18/18 08:35 Dose: 216 mls/hr Documented by: [id number] Potassium Chloride (K Larry / Wtr) 10 meq in 100 mls @ 100 mls/hr IV Q1H EMERALD Stop: 11/18/18 14:44 Last Infusion: 11/18/18 15:48 Dose: 0 mls/hr Documented by: [id number] Admin: 11/18/18 14:45 Dose: 100 mls/hr Documented by: [id number] Infusion: 11/18/18 13:57 Dose: 0 mls/hr Documented by: [id number] Admin: 11/18/18 12:52 Dose: 100 mls/hr Documented by: [id number] Magnesium Sulfate/Dextrose (Magnesium Sulfate / D5w) 1 gm in 100 mls @ 100 mls/hr IV NOW STA Stop: 11/18/18 13:37 Last Infusion: 11/18/18 13:57 Dose: 0 mls/hr Documented by: [id number] Admin: 11/18/18 12:47 Dose: 100 mls/hr Documented by: [id number] Potassium Chloride/Dextrose/Sod Cl (D5nss + 20meq Kcl) 20 meq in 1,000 mls @ 250 mls/hr IV .Q4H EMERALD Stop: 11/18/18 16:44 Last Infusion: 11/18/18 17:29 Dose: 0 mls/hr Documented by: [id number] Admin: 11/18/18 13:07 Dose: 250 mls/hr Documented by: [id number] Lorazepam (Ativan) 0.5 mg in 1 mls @ 1 mls/min IV NOW STA Stop: 11/18/18 14:27 Last Admin: 11/18/18 14:45 Dose: 1 mls/min Documented by: [id number] Ketorolac Tromethamine (Toradol) 30 mg IV NOW STA Stop: 11/18/18 08:21 Last Admin: 11/18/18 08:35 Dose: 30 mg Documented by: [id number] Metoclopramide HCl (Reglan) 5 mg IV ONE ONE Stop: 11/18/18 12:37 Last Admin: 11/18/18 12:47 Dose: Not Given Documented by: [id number] Medical Decision Making Medical Records Attestation: I reviewed the patient's medical records. Home Medications Current Medication List: was personally reviewed by me Laboratory Data Attestation: I reviewed the patient's lab results. Result diagrams: 11/18/18 08:14 11/18/18 08:14 Lab Results 11/18/18 11/18/18 11/18/18 Range/Units 08:14 08:14 10:40 WBC 10.28 (4.8-10.8) K/uL RBC 3.82 L (4.2-5.4) M/uL Hgb 11.0 L (12.0-16.0) g/dL Hct 33.3 L (37-47) % MCV 87.2 (80-100) fL MCH 28.8 (25-34) pg MCHC 33.0 (32-36) g/dL RDW Std Deviation 41.0 (36.4-46.3) fL RDW Coeff of Tim 12.8 (11.5-14.5) % Plt Count 223 (130-400) K/uL MPV 10.3 (7.4-10.4) fL Immature Gran % (Auto) 0.1 % Neut % (Auto) 84.1 % Lymph % (Auto) 5.2 % [place] % (Auto) 9.1 % Eos % (Auto) 1.4 % Baso % (Auto) 0.1 % Immature Gran # (Auto) 0.01 (0.00-0.02) K/uL Neut # (Auto) 8.65 H (1.4-6.5) K/uL Lymph # (Auto) 0.53 L (1.2-3.4) K/uL [place] # (Auto) 0.94 H (0.11-0.59) K/uL Eos # (Auto) 0.14 (0-0.5) K/uL Baso # (Auto) 0.01 (0-0.2) K/uL Sodium 141 (136-145) mmol/L Potassium 3.1 L (3.5-5.1) mmol/L Chloride 112 H (98-107) mmol/L Carbon Dioxide 21 (21-32) mmol/L Anion Gap 9.0 (3-11) BUN 7 (7-18) mg/dl Creatinine 0.73 (0.6-1.2) mg/dl Est Cr Clr Drug Dosing 87.6 ml/min Est GFR ( Amer) 131.7 Est GFR (Non-Af Amer) 113.7 BUN/Creatinine Ratio 10.1 (10-20) Glucose 111 H (70-99) mg/dl Calcium 8.6 (8.5-10.1) mg/dl Total Bilirubin 0.3 (0.2-1) mg/dl AST 15 (15-37) U/L ALT 13 (12-78) U/L Alkaline Phosphatase 38 L (45-117) U/L C-Reactive Protein 3.12 H (0-0.29) mg/dl Total Protein 6.6 (6.4-8.2) gm/dl Albumin 3.7 (3.4-5.0) gm/dl Globulin 2.9 (2.5-4.0) gm/dl Albumin/Globulin Ratio 1.3 (0.9-2) Lipase 144 (73-393) U/L Urine Color Yellow Urine Appearance Clear (Clear) Urine pH 5.0 (4.5-7.5) Ur Specific [place] 1.018 (1.000-1.030) Urine Protein Negative (Negative) Urine Glucose (UA) Negative (Negative) Urine Ketones 1+ H (Negative) Urine Blood Negative (Negative) Urine Nitrite Negative (Negative) Urine Bilirubin Negative (Negative) Urine Urobilinogen Negative (Negative) Ur Leukocyte Esterase Negative (Negative) Urine Opiates Screen (Neg) Ur Methadone, Qual (Neg) Urine Barbiturates (Neg) Ur Phencyclidine (PCP) (Neg) U Amphetamin/Meth Scrn (Neg) MDMA (Ecstasy) Screen (Neg) U Benzodiazepines Scrn (Neg) Ur Cocaine Metabolite (Neg) U Marijuana (THC) Screen (Neg) 11/18/18 Range/Units 10:40 WBC (4.8-10.8) K/uL RBC (4.2-5.4) M/uL Hgb (12.0-16.0) g/dL Hct (37-47) % MCV (80-100) fL MCH (25-34) pg MCHC (32-36) g/dL RDW Std Deviation (36.4-46.3) fL RDW Coeff of Tim (11.5-14.5) % Plt Count (130-400) K/uL MPV (7.4-10.4) fL Immature Gran % (Auto) % Neut % (Auto) % Lymph % (Auto) % [place] % (Auto) % Eos % (Auto) % Baso % (Auto) % Immature Gran # (Auto) (0.00-0.02) K/uL Neut # (Auto) (1.4-6.5) K/uL Lymph # (Auto) (1.2-3.4) K/uL [place] # (Auto) (0.11-0.59) K/uL Eos # (Auto) (0-0.5) K/uL Baso # (Auto) (0-0.2) K/uL Sodium (136-145) mmol/L Potassium (3.5-5.1) mmol/L Chloride (98-107) mmol/L Carbon Dioxide (21-32) mmol/L Anion Gap (3-11) BUN (7-18) mg/dl Creatinine (0.6-1.2) mg/dl Est Cr Clr Drug Dosing ml/min Est GFR ( Amer) Est GFR (Non-Af Amer) BUN/Creatinine Ratio (10-20) Glucose (70-99) mg/dl Calcium (8.5-10.1) mg/dl Total Bilirubin (0.2-1) mg/dl AST (15-37) U/L ALT (12-78) U/L Alkaline Phosphatase (45-117) U/L C-Reactive Protein (0-0.29) mg/dl Total Protein (6.4-8.2) gm/dl Albumin (3.4-5.0) gm/dl Globulin (2.5-4.0) gm/dl Albumin/Globulin Ratio (0.9-2) Lipase (73-393) U/L Urine Color Urine Appearance (Clear) Urine pH (4.5-7.5) Ur Specific [place] (1.000-1.030) Urine Protein (Negative) Urine Glucose (UA) (Negative) Urine Ketones (Negative) Urine Blood (Negative) Urine Nitrite (Negative) Urine Bilirubin (Negative) Urine Urobilinogen (Negative) Ur Leukocyte Esterase (Negative) Urine Opiates Screen Pos H (Neg) Ur Methadone, Qual Neg (Neg) Urine Barbiturates Neg (Neg) Ur Phencyclidine (PCP) Neg (Neg) U Amphetamin/Meth Scrn Neg (Neg) MDMA (Ecstasy) Screen Neg (Neg) U Benzodiazepines Scrn Neg (Neg) Ur Cocaine Metabolite Neg (Neg) U Marijuana (THC) Screen Neg (Neg) Imaging Data Attestation: I personally reviewed and interpreted this imaging study as follows: My Impression: My interpretation of an abdomen obstruction series does not show any acute obstruction or free air. Radiologist report was reviewed. Radiologist's Impression: XR abdomen 2V w PA chest HISTORY: 28 years-old Female Abd pain/N/V acute generalized abdominal pain with nausea and vomiting COMPARISON: CT abdomen and pelvis 11/16/2018 TECHNIQUE: PA view of the chest with erect and supine views of the abdomen FINDINGS: Cardiomediastinal and hilar silhouettes are within normal limits. No pneumothorax, pleural effusion, focal airspace consolidation or overt pulmonary edema. Left subclavian [id number] catheter distal tip terminates in the expected location of the inferior SVC. Bones of the chest appear grossly intact. Mild convex left curvature of the mid to lower thoracic spine. Cystectomy. Gastrojejunostomy tube noted. The bowel gas pattern is n onobstructive. No pneumatosis or pneumoperitoneum. No abnormal calcifications or acute fracture. IUD about the central pelvis. Surgical clips of the pelvis are also noted. IMPRESSION: Unremarkable acute abdominal series radiographs. Blood Pressure Blood Pressure Findings: Normal blood pressure MDM Narrative Patient has a complex GI history, and is currently under the care of a specialist at [place]. The patient does require TPN with a J-tube. She has a history of significant motility issues, as well as sphincter of Oddi dysfunction. Her work-up today is not suggestive of bowel obstruction. She is mildly hypokalemic, otherwise remaining electrolytes are normal. The patient is status post appendectomy and cholecystectomy. Laboratory studies are not suggestive of pancreatitis or hepatitis. Urinalysis is not suggestive of infection, and the patient does not have clinical exam findings to suggest pyelonephritis. She has no hematuria to suggest ureteral calculus. I do not suspect acute cardiopulmonary etiology. Given the patient's intractable nausea and risk for dehydration, I do feel that further hospital observation is warranted, with possible referral to [place] if symptoms do not improve. Impression & Plan Intractable nausea and vomiting, Abdominal pain, Generalized intestinal dysmotility Discharge Plan Visit Data *Final* Discharge Date/Time: 11/18/18 15:16 Chief Complaint: Vomiting Stated Complaint: BACK PAIN, VOMITTING ED Provider: Charan Weller ED Midlevel Provider: Mat Crowder Discharge Problem: Intractable nausea and vomiting, Abdominal pain, Generalized intestinal dysmotility Patient Disposition: Admitted As Inpatient Discharge Instructions Interventions: ED Discharge Assessment Last Done: 11/18/18 15:16
[2018-11-18 08:43] LABS: Albumin Level 3.7 gm/dl (3.4-5.0); BUN Creatinine Ratio 10.1 (10-20); C Reactive Protein 3.12 mg/dl (0-0.29); Calcium 8.6 mg/dl (8.5-10.1); Creatinine Clr Calc Pharmacy 87.6 ml/min; Est GFR (African American) 131.7; Est GFR (Non-African American) 113.7; Potassium 3.1 mmol/L (3.5-5.1)
[2018-11-18 08:46] LABS: Albumin Globulin Ratio 1.3 (0.9-2); Bilirubin,Total 0.3 mg/dl (0.2-1); Globulin 2.9 gm/dl (2.5-4.0); Total Protein 6.6 gm/dl (6.4-8.2)
--- NOTE | 2018-11-18 10:11 | XRay Report ---
XR abdomen 2V w PA chest HISTORY: 28 years-old Female Abd pain/N/V acute generalized abdominal pain with nausea and vomiting COMPARISON: CT abdomen and pelvis 11/16/2018 TECHNIQUE: PA view of the chest with erect and supine views of the abdomen FINDINGS: Cardiomediastinal and hilar silhouettes are within normal limits. No pneumothorax, pleural effusion, focal airspace consolidation or overt pulmonary edema. Left subclavian [id number] catheter distal tip terminates in the expected location of the inferior SVC. Bones of the chest appear grossly intact . Mild convex left curvature of the mid to lower thoracic spine. Cystectomy. Gastrojejunostomy tube noted. The bowel gas pattern is nonobstructive. No pneumatosis or pneumoperitoneum. No abnormal calcifications or acute fracture. IUD about the central pelvis. Surgica l clips of the pelvis are also noted. IMPRESSION: Unremarkable acute abdominal series radiographs. The above report was generated using voice recognition software. It may contain grammatical, syntax o r spelling errors. Electronically signed by: Danny Sow M.D. 11/18/2018 10:10 AM
[2018-11-18 10:58] LABS: Appearance Urine Clear (Clear); Bilirubin Urine Negative (Negative); Blood Urine Negative (Negative); Color Urine Yellow; Glucose Urine UA Negative (Negative); Ketones Urine 1+ (Negative); Leukocyte Esterase Urine Negative (Negative); Nitrite Urine Negative (Negative); Protein Urine Negative (Negative); Specific Gravity Urine 1.018 (1.000-1.030); Urobilinogen Urine Negative (Negative)
[2018-11-18 11:26] LABS: Amphetamines+Metham, Urine Neg (Neg); Barbiturates, Urine Neg (Neg); Benzodiazepine, Urine Neg (Neg); Cocaine, Urine Neg (Neg); MDMA (Ecstacy), Urine Neg (Neg); Methadone, Urine Neg (Neg); Opiate, Urine Pos (Neg); Phencyclidine, Urine Neg (Neg)
[2018-11-18] MEDS ORDERED: METOCLOPRAMIDE HCL INJ 5 MG/ML 2 ML VIAL IV ONE (12:36)
[2018-11-18] MEDS ORDERED: MAGNESIUM SULFATE / D5W 1 GM/100 ML BAG IV STA (12:38)
[2018-11-18] MEDS ORDERED: D5NSS + 20MEQ KCL 20 MEQ/1,000 ML BAG IV SCH (12:45)
--- NOTE | 2018-11-18 12:48 | History & Physical Report ---
Date of Service November 18, 2018 Assessment & Plan (1) Nausea and vomitin28 y/o F Hx dysmotility, gastroparesis, sphincter of oddi dysfunction, adrenal insufficiency, endometriosis. Presents to the ER for the second time in as many days for cramping abdominal pain which radiates to her back, nausea and vomiting. A CT of the abdomen was obtained the prior day and was consistent with possible enteritis, although a diagnosis of dysmotility would also make sense. The pt states that she is allergic to all antiemetics aside from Zofran as they make her "jittery". She was provided with narcotics and ativan by the PA in the ER and states that they have not been effective. Initial labs are notable for hypokalemia. The pt's condition is advanced as she is presently requiring TPN for nutrition and has a J tube for drainage. She is under the care of Dr Lantigua at [facility]. She states that she has not previously required hospitalization for this issue. She does not report excessive drainage. 1) Nausea, vomiting, abdominal pain - We have put a call out to her specialist. She received antiemetics and narcotics with minimal reported improvement and cannot tolerate antiemetics aside form Zofran. 2) Dysmotility/gastroparesis - IVF, pain control, antiemetics. If admitted she will receive TPN and cont her daily enemas as well. She is presently NPO 3) Hypokalemia - K replaced - received Mg as well 4) Adrenal insufficiency - cont hydrocortisone - watch for hypotension and provide stress dosing if needed I discussed the above with an MD at [facility] covering for her primary specialist. We should likely transfer her or DC her to attend the ER at [facility] if there is no improvement. Full code - SCDs Total time for this admit including review of labs, meds, imaging, records - discussion with pt and ER attending - 50 min Present on Admission?: Yes History of Present Illness Chief Complaint: Nausea, vomiting, abdominal pain x 2 days Primary Care Provider: Mariah Addison, DO 28 y/o F Hx dysmotility, gastroparesis, sphincter of oddi dysfunction, adrenal insufficiency, endometriosis. Presents to the ER for the second time in as many days for cramping abdominal pain which radiates to her back, nausea and vomiting. A CT of the abdomen was obtained the prior day and was consistent with possible enteritis, although a diagnosis of dysmotility would also make sense. The pt states that she is allergic to all antiemetics aside from Zofran as they make her "jittery". She was provided with narcotics and ativan by the PA in the ER and states that they have not been effective. Initial labs are notable for hypokalemia. The pt's condition is advanced as she is presently requiring TPN for nutrition and has a J tube for drainage. She is under the care of Dr Lantigua at [facility]. She states that she has not previously required hospitalization for this issue. She does not report excessive drainage. PMH: 1) Intestinal dysmotility and gastroparesis 2) Sphincter of oddi dysfunction 3) As a result of item 1 and item 2, she suffers from recurrent episodes of a bdominal pain, nausea and vomiting - she is under the care of a specialist at [facility] and is prescribed hyoscyamine PRN for nausea/vomiting. She requires TPN for 18 hours/day, daily enemas and had a jejunal drain. 4) Endometriosis - stage III - tissue found in multiple location in bowel and bladder 5) Adrenal insufficiency Surgical: 1) Cholecystectomy 2) Appendectomy 3) X-lap for endometriosis Social: Does not smoke or drink, presently unemployed, lives with parents Family: Both parents alive and well Allergies Allergy/AdvReac Type Severity Reaction Status Date / Time amoxicillin Allergy Intermediate RASH Verified 11/18/18 09:27 Bactrim Allergy Intermediate RASH Verified 08/13/17 12:16 cefazolin Allergy Intermediate rash Verified 11/18/18 09:27 Cephalosporins Allergy Intermediate HIVES Verified 11/18/18 09:27 clavulanic acid Allergy Intermediate HIVES Verified 11/18/18 09:27 Penicillins Allergy Intermediate HIVES Verified 11/18/18 09:27 prochlorperazine Allergy Intermediate HIVES Verified 11/18/18 09:27 promethazine Allergy Intermediate hives, Verified 11/18/18 09:27 throat swelling sulfamethoxazole Allergy Intermediate RASH Verified 11/18/18 09:27 sumatriptan Allergy Intermediate RASH Verified 11/18/18 09:27 trimethoprim Allergy Intermediate RASH Verified 11/18/18 09:27 diphenhydramine AdvReac Intermediate Tachycardia, Verified 11/18/18 09:27 Severe Anxiety WITH IV ONLY erythromycin base AdvReac Intermediate GI SYMPTOMS Verified 11/18/18 09:27 Home Medications Home Medications Medication Instructions Recorded Confirmed Type albuterol sulfate [ProAir HFA] 2 puff INHALATION QID PRN 03/07/18 11/18/18 History azelastine 1 - 2 spray INTRANASAL BID PRN 03/07/18 11/18/18 History cetirizine [Zyrtec] 10 mg PO HS 03/07/18 11/18/18 History dicyclomine 20 mg PO Q6 PRN 03/07/18 11/18/18 History hydrocortisone 20 mg PO QAM 03/07/18 11/18/18 History hyoscyamine sulfate 0.125 mg SUBLINGUAL Q4 PRN 03/07/18 11/18/18 History linaclotide [Linzess] 145 mcg PO BID 03/07/18 11/18/18 History norethindrone acetate 2.5 mg PO QAM 03/07/18 11/18/18 History ondansetron HCl [Zofran] 4 mg PO Q6 PRN 03/07/18 11/18/18 History pantoprazole [Protonix] 40 mg PO QAM 03/07/18 11/18/18 History ranitidine HCl [Zantac] 150 mg PO BID 03/07/18 11/18/18 History trimethobenzamide 300 mg PO TID PRN 03/07/18 11/18/18 History calcium carbonate [Tums] 400 mg PO BID PRN 08/09/18 11/18/18 History polyethylene glycol 3350 [Miralax] 17 g PO DAILY PRN 08/09/18 11/18/18 History levonorgestrel [Mirena] 20 mcg INTRAUTERINE UD 11/16/18 11/18/18 History Past Med/Surg History Medical History Uses feeding tube Appendicitis, acute (Acute 11/07/13) Endometriosis (Resolved) Asthma (Chronic) SMAS (superior mesenteric artery syndrome) (Chronic) Crohn's disease (Chronic) Hemorrhagic cystitis (Acute) Hypotension UTI (urinary tract infection) (Acute) Sphincter of Oddi dysfunction Surgical History Hx of tonsillectomy (Resolved) H/O adenoidectomy (Resolved) S/P wrist surgery (Resolved) H/O lumpectomy (Resolved) H/O laparoscopy (Resolved) S/P cholecystectomy History of appendectomy History of vascular access device Family History Other No significant family history Social History Preferred Language: Turkmen Communication Ability: Effective Health 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 Physical Education Teacher Required: No Beliefs That Will Affect Care: None marital status: single Current Living Situation: Parent and Family current occupational status: unemployed Other Information That Helps Us Care for You: No Feels Safe at Home: Yes Safety Concerns: Feels Safe At This Time Smoking Status: Never smoker Hx Alcohol Use: No Hx Substance Use: No Review of Systems Review of Systems: Gen: Denies fevers, night sweats, rigors, fatigue, malaise ENT: Denies congestion, throat pain, hearing loss Eyes: Denies acute visual changes CV: Denies CP, palpitations Pulmonary: Denies SOB, cough, wheezing GI: Abdominal pain, nausea, vomiting Neuro: Denies acute or unilateral weakness, acute gait impairment, headache or acute visual changes Musculoskeletal: Denies joint pain, inflammation Endocrine: Denies polydipsia, polyuria Skin: Denies acute rashes or ulcers Physical Exam Physical Exam: General: Thin, young F, AAO x 3, no distress ENT: No erythema or exudates, no thrush Eyes: LEWIS, EOMI Head and neck: Normocephalic, atraumatic, No JVD, neck is supple. Chest/heart: Nontender, S1,2, RRR, no murmurs, no gallops Lungs: CTAB, no wheezing or crackles Abdomen: Mild diffuse tenderness, hypoactive Neuro: AAO x 3, speech is clear, no unilateral weakness or loss of sensation, coordination intact Musculoskeletal: No joint inflammation, muscle tenderness, FROM Skin: No acute rashes or ulcers Extremities: No clubbing, cyanosis, edema Results & Data Vital Signs (Past 12 Hours) Vital Signs Temp Pulse Pulse Resp BP BP Pulse Ox 11/18/18 11:13 122 H 16 97/63 L 98 11/18/18 11:00 118 H 19 97 11/18/18 10:40 99.1 F 124 H 16 99/68 L 99 11/18/18 10:39 135 H 16 99 11/18/18 10:38 99/68 L 11/18/18 09:35 113 H 117 H 15 108/68 100/60 96 11/18/18 09:30 115 H 21 11/18/18 09:00 116 H 19 11/18/18 08:30 106 H 17 11/18/18 08:14 112 H 20 108/81 11/18/18 08:07 106 H 24 11/18/18 08:04 113 H 38 H 108/81 11/18/18 07:57 99.5 F 137 H [address] abdomen: 1. No definite acute process within the abdomen or pelvis. 2. Mildly fluid-filled small and large bowel which could be seen in the setting of an enterocolitis. No bowel wall thickening. No bowel obstruction. PG Care Time/CCT Total # of Minutes Spent Total Time Spent with Patient: Total time spent is greater than 50% in coordination of care (as documented) at patient's floor/unit and/or counseling patient:
[2018-11-18] MEDS: POTASSIUM CHLORIDE / WTR 10 MEQ/100 ML PLCT IV SCH ×6 (12:52→20:43)
[2018-11-18] MEDS ORDERED: LORazepam 0.5 MG/1 ML VIAL IV STA (14:26)
[2018-11-18] MEDS ORDERED: ONDANSETRON 4 MG TAB PO PRN (16:05)
[2018-11-18] MEDS ORDERED: ACETAMINOPHEN 325 MG TAB PO PRN (16:05)
[2018-11-18] MEDS ORDERED: ZOLPIDEM TARTRATE 5 MG TAB PO PRN (16:05)
[2018-11-18] MEDS ORDERED: ALUMINUM/MAGNESIUM SUSP 30 ML UDC PO PRN (16:05)
[2018-11-18] MEDS ORDERED: HYOSCYAMINE SULFATE 0.125 MG TAB SL PRN (16:05)
[2018-11-18] MEDS ORDERED: ALBUTEROL HFA 8 GM INHALER INH PRN (16:05)
[2018-11-18] MEDS ORDERED: MAGNESIUM HYDROXIDE SUSP 30 ML UDC PO PRN (16:05)
[2018-11-18] MEDS ORDERED: POLYETHYLENE (MIRALAX) 17 GM PACK PO PRN (16:05)
[2018-11-18] MEDS ORDERED: CALCIUM CARBONATE 500 MG CHEWABLE TAB PO PRN (16:05)
[2018-11-18] MEDS ORDERED: DICYCLOMINE HCL 10 MG CAP PO PRN (16:05)
[2018-11-18] MEDS ORDERED: TPN/PPN CONSULT PHARMACY PRN (16:29)
[2018-11-18] MEDS: HYDROmorphone INJ 0.5 MG/0.5 ML SYR IV PRN ×2 (16:41→23:30)
[2018-11-18] MEDS ORDERED: ACETAMINOPHEN 65 ML IV PRN (19:30)
[2018-11-18] MEDS ORDERED: VANCOMYCIN HCL 1,000 MG/270 ML BAG IV STA (19:40)
[2018-11-18] MEDS ORDERED: VANCOMYCIN CONSULT ACTIVE PRN (19:40)
[2018-11-18] MEDS: ONDANSETRON INJ 2 MG/ML 2 ML VIAL IV PRN (20:19)
[2018-11-18] MEDS: LACTATED RINGER'S 1,000 ML IV SCH (20:31)
--- NOTE | 2018-11-18 20:44 | Progress Note ---
Date of Service November 18, 2018 Received turnover the patient was admitted earlier today with gastroparesis, nausea and vomiting, and ongoing abdominal pain. Continues to be tachycardic. Saw patient at bedside and spoke with her mother who is also at bedside. Mother reports yesterday being relatively okay with some minimal solid intake and no nausea/vomiting. However today has been all nausea and vomiting with only the IVF given here. Patient has multiple allergies. She only tolerates Zofran regularly for nausea. Issues with Compazine and Reglan. Has had Emend and Marinol before which have helped. Patient did not get TPN last night and would rather not have it tonight because she says it makes her feel bad. Patient is presently febrile and tachycardic to 150s. BP 103/60. Patient appears very uncomfortable, ongoing nausea, and complaints of abdominal pain. Regular tachycardia and tender to abdominal palpation. EKG earlier today with sinus tachycardia. No known underlying heart issues. Plan for now (discussed with Dr. Sharma): - Ordered Decadron for attempted further nausea control. - Consider Marinol if needed. - Placed on LR 125 mL/hr IVF. - We will hold her TPN for this evening. - Blood cultures were sent. Blood fungal culture sent. - Empiric vancomycin was started earlier this evening. - We will transfer to [facility] with telemetry due to her tachycardia. Son Boyce, PGY3 Overnight call Results & Data Vital Signs (Past 12 Hours) Vital Signs Temp Pulse Pulse Pulse Resp BP BP 11/18/18 20:15 39.9 C H 144 H 16 110/75 11/18/18 18:54 38.6 C H 11/18/18 18:28 135 H 11/18/18 16:52 11/18/18 16:46 11/18/18 16:07 36.8 C 126 H 18 11/18/18 15:16 115 H 23 102/69 11/18/18 15:00 115 H 19 11/18/18 14:30 117 H 23 108/74 11/18/18 14:19 131 H 15 100/64 11/18/18 14:18 115 H 31 H 100/64 11/18/18 14:17 114 H 22 100/64 11/18/18 14:16 115 H 19 100/64 11/18/18 14:15 112 H 22 100/64 11/18/18 14:02 122 H 20 11/18/18 14:01 124 H 24 100/64 11/18/18 14:00 119 H 17 100/64 11/18/18 13:31 117 H 13 11/18/18 13:30 118 H 19 106/74 11/18/18 13:01 109 H 21 11/18/18 13:00 108 H 20 107/67 11/18/18 12:31 107 H 20 11/18/18 12:30 124 H 17 107/68 11/18/18 12:01 109 H 19 11/18/18 12:00 119 H 17 110/69 11/18/18 11:31 131 H 22 11/18/18 11:30 130 H 15 104/55 L 11/18/18 11:14 121 H 16 11/18/18 11:13 122 H 16 97/63 L 11/18/18 11:00 118 H 19 11/18/18 10:40 37.3 C 124 H 16 11/18/18 10:39 135 H 16 11/18/18 10:38 99/68 L 11/18/18 09:35 113 H 117 H 15 108/68 11/18/18 09:30 115 H 21 11/18/18 09:00 116 H 19 BP Pulse Ox Pulse Ox 11/18/18 20:15 99 11/18/18 18:54 11/18/18 18:28 11/18/18 16:52 96 11/18/18 16:46 99 11/18/18 16:07 103/68 98 11/18/18 15:16 100 11/18/18 15:00 99 11/18/18 14:30 100 11/18/18 14:19 100 11/18/18 14:18 99 11/18/18 14:17 99 11/18/18 14:16 99 11/18/18 14:15 99 11/18/18 14:02 99 11/18/18 14:01 100 11/18/18 14:00 100 11/18/18 13:31 100 11/18/18 13:30 99 11/18/18 13:01 97 11/18/18 13:00 97 11/18/18 12:31 96 11/18/18 12:30 97 11/18/18 12:01 96 11/18/18 12:00 97 11/18/18 11:31 97 11/18/18 11:30 97 11/18/18 11:14 98 11/18/18 11:13 98 11/18/18 11:00 97 11/18/18 10:40 99/68 L 99 11/18/18 10:39 99 11/18/18 10:38 11/18/18 09:35 100/60 96 11/18/18 09:30 11/18/18 09:00
[2018-11-18] MEDS ORDERED: DEXAMETHASONE SOD PHOSPHATE 4 MG in SYRINGE 0 ML IV ONE (20:45)
[2018-11-18 20:50] LABS: Magnesium 1.9 mg/dl (1.8-2.4); Phosphorus 0.8 mg/dl (2.5-4.9)
[2018-11-18] MEDS ORDERED: VANCOMYCIN HCL 1,000 MG in SODIUM CHLORIDE 0.9% 250 ML IV ONE (21:00)
[2018-11-18] MEDS ORDERED: ERYTHROMYCIN DELAYED RELEASE 250 MG CAP PO SCH (21:00)
[2018-11-18] MEDS: CETIRIZINE HCL 10 MG TABLET PO SCH (21:15)
--- NOTE | 2018-11-18 21:16 | Pharmacy Report ---
Pharmacy Abx Initial Consult - Date of Service November 18, 2018 - Pharmacy Dosing Scope Date of Consult: 7-4 Consultation requested by: Dr. Elizabeth Pharmacy is consulted to initiate vancomycin dosing therapy, order appropriate labs and adjust drug dose/frequency. - Subjective The patient is a 28 year old F admitted on 11/18/18 14:19. - Objective Height: 5 ft 6 in Weight: 47.5 kg Lab Results (24hrs): Laboratory Tests (24 Hours) 11/18/18 11/18/18 08:14 08:14 WBC 10.28 Neut # (Auto) 8.65 H Creatinine 0.73 Est Cr Clr Drug Dosing 87.6 C-Reactive Protein 3.12 H Micro Results: 11/18/18 20:20 Aerobic Blood Culture - Pending Blood Anaerobic Blood Culture - Pending 11/18/18 20:12 Fungal Smear - Pending Blood Fungal Culture - Pending 11/18/18 20:12 Aerobic Blood Culture - Pending Blood Anaerobic Blood Culture - Pending - Assessment & Plan Assessment Patient admitted with gastroparesis, N/V, ongoing abdominal pain, tachycardia, on chronic TPN at home. Concern for infection - vancomycin ordered. Blood cultures x 2 are pending. Vancomycin: * 1000 mg x 1 loading dose given (~21 mg/kg) * Will start maintenance dose of vancomycin 750 mg (~16 mg/kg) iv q 10 hrs to achieve an estimated trough ~15-20 mcg/ml * Estimated kinetics: t1/2~9 hrs, ke~0.076 hr-1, CrCl ~87 ml/min * Ordered as empiric antibiotics - if plan is to continue will plan to check trough as appropriate Pharmacy will continue to follow and will adjust dose/frequency as necessary. Thank you.
[2018-11-18] MEDS ORDERED: DEXTROSE 10% 1,000 ML IV PRN (22:00)
[2018-11-18] MEDS: LORazepam 0.5 MG/1 ML VIAL IV PRN (22:18)
[2018-11-18] MEDS ORDERED: HEPARIN 100 UNIT/ML 5ML FLUSH FLUSH PRN (22:48)
[2018-11-19] MEDS: LACTATED RINGER'S 1,000 ML IV SCH ×3 (03:57→20:58)
[2018-11-19] MEDS: VANCOMYCIN HCL 750 MG in SODIUM CHLORIDE 0.9% 250 ML IV SCH ×2 (06:08→16:33)
[2018-11-19 06:40] LABS: Hematocrit (blood only) 28.4 % (37-47); Hemoglobin 9.2 g/dL (12.0-16.0); Mean Corpuscular Hgb Conc 32.4 g/dL (32-36); Mean Corpuscular Volume 88.2 fL (80-100); Platelet Count 192 K/uL (130-400); RDW Coefficient of Variation 12.7 % (11.5-14.5); RDW Standard Deviation 40.8 fL (36.4-46.3); Red Blood Count 3.22 M/uL (4.2-5.4); White Blood Count 4.39 K/uL (4.8-10.8)
[2018-11-19 06:41] LABS: Immature Granulocytes # (auto) 0.01 K/uL (0.00-0.02); Immature Granulocytes % (auto) 0.2 %; Lymphocytes % (auto) 9.1 %; Monocytes % (auto) 4.6 %; Neutrophils # (auto) 3.78 K/uL (1.4-6.5); Neutrophils % (auto) 86.1 %
[2018-11-19 06:50] LABS: Blood Urea Nitrogen 5 mg/dl (7-18); Calcium 7.9 mg/dl (8.5-10.1); Carbon Dioxide 22 mmol/L (21-32); Chloride 112 mmol/L (98-107); Creatinine Clr Calc Pharmacy 122.9 ml/min; Est GFR (African American) > 150.0; Est GFR (Non-African American) 131.9; Glucose 99 mg/dl (70-99); Sodium 141 mmol/L (136-145); Triglycerides 75 mg/dl (0-150)
[2018-11-19 07:46] LABS: Phosphorus 3.4 mg/dl (2.5-4.9)
[2018-11-19] MEDS ORDERED: LACTATED RINGER'S 1,000 ML IV ONE (08:51)
[2018-11-19] MEDS: ONDANSETRON INJ 2 MG/ML 2 ML VIAL IV PRN ×3 (08:57→22:46)
[2018-11-19] MEDS ORDERED: HYDROCORTISONE 10 MG TAB PO SCH ×2 (09:00)
[2018-11-19] MEDS: HYDROCORTISONE SOD 50 MG in SYRINGE 0 ML IV SCH ×2 (09:59→18:10)
[2018-11-19] MEDS ORDERED: ONDANSETRON INJ 2 MG/ML 2 ML VIAL IV STA (11:21)
[2018-11-19] MEDS ORDERED: LEVOFLOXACIN/D5W 500 MG/100 ML BAG IV SCH (11:30)
[2018-11-19] MEDS: NORETHINDRONE 5 MG TAB PO SCH (11:36)
[2018-11-19] MEDS: PANTOprazole 40 MG TAB PO SCH (11:36)
[2018-11-19] MEDS: HYDROmorphone INJ 0.5 MG/0.5 ML SYR IV PRN ×2 (11:38→20:50)
[2018-11-19 11:41] LABS: Alanine Aminotransferase 38 U/L (12-78); Albumin Level 2.8 gm/dl (3.4-5.0); Alkaline Phosphatase 46 U/L (45-117); Aspartate Aminotransferase 34 U/L (15-37); Bilirubin Direct < 0.1 mg/dl (0-0.2); Bilirubin,Total 0.3 mg/dl (0.2-1); Total Protein 5.6 gm/dl (6.4-8.2)
[2018-11-19] MEDS: metroNIDAZOLE 500 MG/100 ML BAG IV SCH ×2 (12:52→20:06)
[2018-11-19] MEDS: LORazepam 0.5 MG/1 ML VIAL IV PRN ×2 (13:01→17:52)
--- NOTE | 2018-11-19 13:07 | Infectious Disease Consult ---
Date of Consultation November 19, 2018 Assessment & Plan (1) Right upper quadrant abdominal pain: continue abx and follow culture results, negative to date. would suggest repeat ct if pain continues. potential transfer to [place] pending eval. History of Present Illness Attending Physician: Vicky Drew MD pt admitted with n/v and fever, new onset. has feeding tube and port, receiving tpn. follows at [facility], awaiting potential transfer. mom at bedside. she was placed on IV Vanco for ? infected port and fevers. states port is 2 years old, no h/o port infection, has been functioning well. Has had infection of j tube site, mom states 6 months ago, saw Dr. Caro in office, was treated in office. had another j tube infection 2 months ago, treated by pcp. was not on abx at time of admission. no previous f/c. now states she is nauseated, no vomiting currently. epigastric abd pain noted, no pain at tube site, no drainage. no pain at port site. no cp, sob, cough, no zuniga. wbc 4.3, creat normal. had temp of 39.9 in ER, otherwise afebrile. tolerating vanco. UA negative, UDS + opiates, was seen in ER 2 days ago and d/c with po narcotics for abd pain. 11/18 blood cultures pending, blood cultures from 11/16 are negative to date. CXR negative. ct abd done on 11/16 showed ? enterocolitis, not repeat upon admissoin. Allergies Allergy/AdvReac Type Severity Reaction Status Date / Time amoxicillin Allergy Intermediate RASH Verified 11/18/18 09:27 Bactrim Allergy Intermediate RASH Verified 08/13/17 12:16 cefazolin Allergy Intermediate rash Verified 11/18/18 09:27 Cephalosporins Allergy Intermediate HIVES Verified 11/18/18 09:27 clavulanic acid Allergy Intermediate HIVES Verified 11/18/18 09:27 Penicillins Allergy Intermediate HIVES Verified 11/18/18 09:27 prochlorperazine Allergy Intermediate HIVES Verified 11/18/18 09:27 promethazine Allergy Intermediate hives, Verified 11/18/18 09:27 throat swelling sulfamethoxazole Allergy Intermediate RASH Verified 11/18/18 09:27 sumatriptan Allergy Intermediate RASH Verified 11/18/18 09:27 trimethoprim Allergy Intermediate RASH Verified 11/18/18 09:27 diphenhydramine AdvReac Intermediate Tachycardia, Verified 11/18/18 09:27 Severe Anxiety WITH IV ONLY erythromycin base AdvReac Intermediate GI SYMPTOMS Verified 11/18/18 09:27 Home Medications Home Medications Medication Instructions Recorded Confirmed Type albuterol sulfate [ProAir HFA] 2 puff INHALATION QID PRN 03/07/18 11/18/18 History azelastine 1 - 2 spray INTRANASAL BID PRN 03/07/18 11/18/18 History cetirizine [Zyrtec] 10 mg PO HS 03/07/18 11/18/18 History dicyclomine 20 mg PO Q6 PRN 03/07/18 11/18/18 History hydrocortisone 20 mg PO QAM 03/07/18 11/18/18 History hyoscyamine sulfate 0.125 mg SUBLINGUAL Q4 PRN 03/07/18 11/18/18 History linaclotide [Linzess] 145 mcg PO BID 03/07/18 11/18/18 History norethindrone acetate 2.5 mg PO QAM 03/07/18 11/18/18 History ondansetron HCl [Zofran] 4 mg PO Q6 PRN 03/07/18 11/18/18 History pantoprazole [Protonix] 40 mg PO QAM 03/07/18 11/18/18 History ranitidine HCl [Zantac] 150 mg PO BID 03/07/18 11/18/18 History trimethobenzamide 300 mg PO TID PRN 03/07/18 11/18/18 History calcium carbonate [Tums] 400 mg PO BID PRN 08/09/18 11/18/18 History polyethylene glycol 3350 [Miralax] 17 g PO DAILY PRN 08/09/18 11/18/18 History levonorgestrel [Mirena] 20 mcg INTRAUTERINE UD 11/16/18 11/18/18 History senna leaf 180 ml PO DAILY 11/19/18 11/19/18 History Patient History Medical History Uses feeding tube Appendicitis, acute (Acute 11/07/13) Endometriosis (Resolved) Asthma (Chronic) SMAS (superior mesenteric artery syndrome) (Chronic) Crohn's disease (Chronic) Hemorrhagic cystitis (Acute) Hypotension UTI (urinary tract infection) (Acute) Sphincter of Oddi dysfunction Surgical History Hx of tonsillectomy (Resolved) H/O adenoidectomy (Resolved) S/P wrist surgery (Resolved) H/O lumpectomy (Resolved) H/O laparoscopy (Resolved) S/P cholecystectomy History of appendectomy History of vascular access device Family History Other No significant family history Social History Preferred Language: Mexican Communication Ability: Effective Is Technician Required: No Beliefs That Will Affect Care: None marital status: single Current Living Situation: Parent and Family current occupational status: unemployed Other Information That Helps Us Care for You: No Feels Safe at Home: Yes Safety Concerns: Feels Safe At This Time Smoking Status: Never smoker Hx Alcohol Use: No Hx Substance Use: No Review of Systems Review of Systems: All systems reviewed & are unremarkable except as noted in HPI & below Physical Exam Constitutional: WD/WN, vitals as above Eyes: PERRL, conjunctivae normal, anicteric sclerae ENMT: external ear and nose normal, oropharynx normal Neck: normal visual inspection Respiratory: normal respiratory effort, lungs clear to auscultation Cardiovascular: RRR, no murmur, no edema Gastrointestinal (Abdomen): Inspection/Auscultation: abdomen normal to inspection; abdomen not distended Percussion/Palpation: abdomen soft; abdomen nontender, no guarding and abdomen not rigid j tube intact, no surrounding warmth, erythema, non tender, no drainage Musculoskeletal: no cyanosis or clubbing, extremities motor strength 5/5 Skin: no rashes, warm and dry port dressing c/d/i, no surrounding warmth erythema, tenderness Psychiatric: A+Ox3, euthymic affect Results & Data Vital Signs (Past 12 Hours) Vital Signs Temp Pulse Resp BP Pulse Ox 11/19/18 11:43 36.8 C 92 H 16 91/58 L 99 11/19/18 10:55 100/67 11/19/18 08:44 82/46 L 11/19/18 08:31 87/52 L 11/19/18 07:13 36.6 C 88 16 85/54 L 98 11/19/18 04:27 36.8 C 100 H 20 83/55 L 97 Laboratory Results Microbiology 11/18/18 20:12 Blood Fungal Smear - Final 11/18/18 20:12 Blood Fungal Culture - Preliminary No yeast or fungus isolated - Report 1, Additional Report to Follow.
--- NOTE | 2018-11-19 16:00 | Pharmacy Report ---
Pharmacy PN Initial Consult - Date of Service November 19, 2018 - Scope Pharmacy has been consulted to manage parenteral nutrition orders and order appropriate labs. As part of the Nutrition Support Team guidelines, pharmacy will work in conjunction with dietary when determining the patients caloric needs. - Subjective The patient is a 28 year old F admitted on 11/18/18 14:19 for NAUSEA, VOMITING. Patient is on chronic TPN as an outpatient - Objective Height: 5 ft 6 in Weight: 47.5 kg Intake & Output (Last 24Hrs): Intake & Output 11/17/18 11/18/18 11/19/18 11/20/18 06:59 06:59 06:59 06:59 Intake Total 5011.500 / 5011.500 2325.416 / 2325.416 Balance 5011.500 / 5011.500 2325.416 / 2325.416 Weight 47.5 kg 47.5 kg Laboratory Data (Last 24 Hrs):: 11/18/18 11/19/18 11/19/18 20:12 05:44 05:44 Sodium 141 Potassium 4.0 D Chloride 112 H Carbon Dioxide 22 BUN 5 L Creatinine 0.52 L Glucose 99 Calcium 7.9 L Phosphorus 0.8 L* 3.4 D Magnesium 1.9 2.0 Total Bilirubin 0.3 AST 34 ALT 38 Alkaline Phosphatase 46 Albumin 2.8 L Triglycerides 75 Nutrition Assessment:: Please refer to the Notes section of the EMR for the most recent community affairs director note. - Plan * Patient on TPN as outpatient chronically * Spoke extensively with patient's Mom - patient experiences profound rebound hypglycemia if TPN not very gradually tapered. Typical outpatient cycle is an 18 hour cycle with 1 hour taper up and *6 hour* taper down. While inpatient, will change to q24h continuous infusion to prevent rebound hypoglycemia and hopefully minimize nausea that the patient commonly experiences during infusion. Discussed this with Dr. Drew too. * Entered communication to nursing - if TPN is ever held or if it is not continued after a bag is complete, must check BSG q1h x2 checks to evaluate for hypoglycemia * Spoke extensively with Fede (outpatient pharmacist who manages her TPN) - very high electrolyte (especially potassium) requirements 2nd significant outputs. I verbally confirmed the potassium content of the TPN via the faxed documents Fede sent * Patient's mom to bring in own TPN today. May be transferred to [facility] For day 1 of PN administration, the following will be ordered: Macronutrients Amino acids 135 grams/day Dextrose 225 grams/day Lipids 90 grams/day Micronutrients Sodium chloride 50 mEq Sodium acetate 47 mEq Potassium phosphate 26 mMol Potassium chloride 30 mEq Potassium acetate 110 mEq Magnesium sulfate 22 mEq Calcium gluconate 20 mEq (allergy noted both by Fede and by Mom) Trace Elements 1 mL Additional additives: folic acid 1 mg, thiamine 100 mg, famotidine 20 mg Total volume 1900 mL to be infused over 24 hrs (which is different from home schedule - see above) Labs to be ordered per PN order protocol Pharmacy will follow and adjust parenteral nutrition orders on a daily basis. Thank you.
[2018-11-19] MEDS ORDERED: CUSTOM CENTRAL PN IV SCH (18:00)
[2018-11-19] MEDS ORDERED: FOSAPREPITANT DIMEGLUMINE 115 MG in 0.9 % SODIUM CHLORIDE 111.2 ML IV ONE (18:35)
--- NOTE | 2018-11-19 18:44 | Gastrointestinal Consultation ---
Date of Consultation November 19, 2018 Assessment & Plan (1) Intractable nausea and vomiting: Differential includes enteriti, SB bacterial overgrowth, obstipation. Continue abx. Trial of Emend. Check test also. If Emend does not work would place NG and put on LIS. fever--cover for bacterial infection SB with levaquin and flagyl obstipation--can see if on abd series. May need clean out from above and below depending on above workup/results. gastric and SB dysmotility abdominal pain ? sphinctero of oddi dysfunction-not sure how thsi was diagnosed. Discussed with DR Drew and if she fails to improve and/or family desires to transfer to [place] where her GI works. Dr Julien Monaco covering this weekend. History of Present Illness Reason for Consultation: n/v Requesting Physician: Vicky Drew MD Attending Physician: Vicky Drew MD History of Present Illness cc n/v HPI Pt known to us from previous admissins and was seen office before last time 03/[address] Loaiza. She primarily follows with GI in [place]. She has total gut dysmpotilty and is on TPN for nutrition and venting G-J tube. She has obstipation and has been on Pristeen rectal enema system. She states had obstiaption and had nulytely through the tube recently. She has had surgery for SMA syndrom in the past. She was in ER and had CT a/p 11/16/18 showeing fluid filled colon and SB. She came back to ER and was admitted. She had fever yesterday and place on vanco. I suggested to DR Drew levaquin and flagyl and she was started on that. She has some nonspecific abd pain also. Allergies Allergy/AdvReac Type Severity Reaction Status Date / Time amoxicillin Allergy Intermediate RASH Verified 11/18/18 09:27 Bactrim Allergy Intermediate RASH Verified 08/13/17 12:16 cefazolin Allergy Intermediate rash Verified 11/18/18 09:27 Cephalosporins Allergy Intermediate HIVES Verified 11/18/18 09:27 clavulanic acid Allergy Intermediate HIVES Verified 11/18/18 09:27 Penicillins Allergy Intermediate HIVES Verified 11/18/18 09:27 prochlorperazine Allergy Intermediate HIVES Verified 11/18/18 09:27 promethazine Allergy Intermediate hives, Verified 11/18/18 09:27 throat swelling sulfamethoxazole Allergy Intermediate RASH Verified 11/18/18 09:27 sumatriptan Allergy Intermediate RASH Verified 11/18/18 09:27 trimethoprim Allergy Intermediate RASH Verified 11/18/18 09:27 diphenhydramine AdvReac Intermediate Tachycardia, Verified 11/18/18 09:27 Severe Anxiety WITH IV ONLY erythromycin base AdvReac Intermediate GI SYMPTOMS Verified 11/18/18 09:27 Home Medications Home Medications Medication Instructions Recorded Confirmed Type albuterol sulfate [ProAir HFA] 2 puff INHALATION QID PRN 03/07/18 11/18/18 History azelastine 1 - 2 spray INTRANASAL BID PRN 03/07/18 11/18/18 History cetirizine [Zyrtec] 10 mg PO HS 03/07/18 11/18/18 History dicyclomine 20 mg PO Q6 PRN 03/07/18 11/18/18 History hydrocortisone 20 mg PO QAM 03/07/18 11/18/18 History hyoscyamine sulfate 0.125 mg SUBLINGUAL Q4 PRN 03/07/18 11/18/18 History linaclotide [Linzess] 145 mcg PO BID 03/07/18 11/18/18 History norethindrone acetate 2.5 mg PO QAM 03/07/18 11/18/18 History ondansetron HCl [Zofran] 4 mg PO Q6 PRN 03/07/18 11/18/18 History pantoprazole [Protonix] 40 mg PO QAM 03/07/18 11/18/18 History ranitidine HCl [Zantac] 150 mg PO BID 03/07/18 11/18/18 History trimethobenzamide 300 mg PO TID PRN 03/07/18 11/18/18 History calcium carbonate [Tums] 400 mg PO BID PRN 08/09/18 11/18/18 History polyethylene glycol 3350 [Miralax] 17 g PO DAILY PRN 08/09/18 11/18/18 History levonorgestrel [Mirena] 20 mcg INTRAUTERINE UD 11/16/18 11/18/18 History senna leaf 180 ml PO DAILY 11/19/18 11/19/18 History Patient History Medical History Uses feeding tube Appendicitis, acute (Acute 11/07/13) Endometriosis (Resolved) Asthma (Chronic) SMAS (superior mesenteric artery syndrome) (Chronic) Crohn's disease (Chronic) Hemorrhagic cystitis (Acute) Hypotension UTI (urinary tract infection) (Acute) Sphincter of Oddi dysfunction Surgical History Hx of tonsillectomy (Resolved) H/O adenoidectomy (Resolved) S/P wrist surgery (Resolved) H/O lumpectomy (Resolved) H/O laparoscopy (Resolved) S/P cholecystectomy History of appendectomy History of vascular access device Family History Other No significant family history Social History Preferred Language: Estonian Communication Ability: Effective Medicine Worker Required: No Beliefs That Will Affect Care: None marital status: single Current Living Situation: Parent and Family current occupational status: unemployed Other Information That Helps Us Care for You: No Feels Safe at Home: Yes Safety Concerns: Feels Safe At This Time Smoking Status: Never smoker Hx Alcohol Use: No Hx Substance Use: No Review of Systems Review of Systems: All systems reviewed & are unremarkable except as noted in HPI & below Physical Exam Constitutional: WD/WN, vitals as above Eyes: PERRL, conjunctivae normal, anicteric sclerae ENMT: external ear and nose normal, oropharynx normal Neck: normal visual inspection and trachea midline Respiratory: normal respiratory effort, lungs clear to auscultation Cardiovascular: RRR, no murmur, no edema Gastrointestinal (Abdomen): abd pos bs, soft, no guarding nor reboudn Neurologic: PERRL, EOMI, accommodation nl, no face palsy, no dysarthria Psychiatric: A+Ox3, euthymic affect Results & Data Vital Signs (Past 12 Hours) Vital Signs Temp Pulse Resp BP Pulse Ox 11/19/18 15:12 36.6 C 102 H 16 90/61 L 98 11/19/18 11:43 36.8 C 92 H 16 91/58 L 99 11/19/18 10:55 100/67 11/19/18 08:44 82/46 L 11/19/18 08:31 87/52 L 11/19/18 07:13 36.6 C 88 16 85/54 L 98
[2018-11-19] MEDS ORDERED: FOSAPREPITANT DIMEGLUMINE 115 MG in 0.9 % SODIUM CHLORIDE 111.2 ML IV SCH (19:00)
[2018-11-19] MEDS ORDERED: HYDROCORTISONE SOD SUCCINATE 100 MG/2 ML VIAL IV STA (19:07)
[2018-11-19 19:14] LABS: Pregnancy Test, Serum Negative (Negative)
--- NOTE | 2018-11-19 19:18 | XRay Report ---
CHEST AND ABDOMEN 2 VIEWS HISTORY: vomiting, generalized abdominal pain COMPARISON: Chest and abdominal series 11/18/2018. FINDINGS: The lungs are clear. No pleural effusions. No pneumothorax. The heart is normal in size. Le ft subclavian Port-A-Cath terminates at the SVC. No pneumoperitoneum. No pneumatosis. Prior cholecyst ectomy. A gastrojejunostomy tube is again noted and unchanged in position. The bowel gas pattern is u nremarkable. No evidence for bowel obstruction. An IUD and surgical clips are again noted in the pelv is. These remain unchanged. IMPRESSION: 1. No acute process within the chest. 2. No evidence for bowel obstruction. Electronically signed by: Victor Hugo Snowden M.D. 11/19/2018 7:16 PM
[2018-11-19] MEDS ORDERED: HYDROCORTISONE SOD 50 MG in SYRINGE 0 ML IV ONE (19:45)
--- NOTE | 2018-11-19 19:54 | Hospitalist Progress Note ---
Date of Service November 19, 2018 Assessment & Plan (1) Nausea and vomiting: This patient is a 28 y/o female with a very complex history including intestinal dysmotility status post placement of J-tube and on chronic TPN, gastroparesis, sphincter of oddi dysfunction, adrenal insufficiency, and en dometriosis. Presents to the ER for the second time in as many days for cramping epigastric abdominal pain which radiates to her back, and intractable nausea and vomiting. A CT of the abdomen was obtained the prior day and was consistent with possible enteritis, although a diagnosis of dysmotility would also make sense. The pt states that she is allergic to all antiemetics aside from Zofran as they make her "jittery". She was provided with narcotics and ativan by the PA in the ER and states that they have not been effective. Initial labs are notable for hypokalemia. The pt's condition is advanced as she is presently requiring TPN for nutrition and has a J tube for drainage. She is under the care of Dr Lantigua at [facility]. Nausea and vomiting persist today Repeat abdominal series without any evidence of obstruction. Patient has a history of being very sensitive to antibiotics and her mom is concerned that perhaps the antibiotics are now making her nauseated? -Continue Zofran as needed -Give trial of Emend IV x1 -Appreciate GI consultation here -Have discussed her case with the on-call assistant superintendent at [facility] on 11/19-they are in agreement with her current plan of care and are in agreement with NG tube placement if antiemetics are not working -Give stress dose steroids of IV hydrocortisone as below -Continue to keep bowels moving from below given history of severe intestinal dysmotility which could be contributing to nausea vomiting -Continue IV fluids -Patient declines to have her TPN at this time as says this can worsen her nausea -Continue Accu-Cheks every 6 hours (2) Fever: Spiked a fever on the evening of admission on 11/18 along with tachycardia No leukocytosis noted No clear source but does have a port in place as well as a J-tube. It could be an enterocolitis -Blood cultures and fungal culture were obtained-fungal smear is negative-no growth to date on cultures Urinalysis does not show any evidence of infection CT scan of the abdomen/pelvis on 11/16 had no evidence of abscess or pancreatitis, lipase remains normal, LFTs normal, has had a cholecystectomy previously -Covering with vancomycin in case of port infection although the skin around the port appears perfectly normal -Started levofloxacin and metronidazole to cover for GI source -Continue to follow all cultures (3) Generalized intestinal dysmotility: Dysmotility/gastroparesis -ongoing since 2016 and was worsened after a procedure for her SMA syndrome Follows with GI specialist at [facility] on a monthly basis-unfortunately, he was unable to be reached and may be out of the office for the week. However, discussed her case with GI specialist on-call at [facility] who agreed with current plan of care She is unable to tolerate any of her p.o. meds at this time due to nausea and vomiting She is having frequent loose stools which is normal for her, however her mom rep orts that it is thought that she frequently has loose stools around impacted stool in the colon -When able to tolerate p.o., would restart home Linzess, trimethobenzamide, domperidone which she obtains from [facility] -Can continue her daily enema system that her mom brought from home (4) Epigastric abdominal pain: Likely secondary to her sphincter of Oddi spasm as this feels similar to her in the past CT of the abdomen/pelvis did not show any abnormalities on 11/16 other than fluid in the bowel which may be from enterocolitis versus intestinal dysmotility LFTs and lipase continue to be normal and not likely to have pancreatitis She is not having any blood in her vomit or stool to suggest bleeding from a gastric ulcer She does not have any evidence at all of bowel obstruction or perforation on x- ray images here -Continue Dilaudid as needed sparingly to avoid worsening her intestinal dysmotility -As unable to tolerate p.o. antacids, will start IV ranitidine 50 mg IV every 8 hours IV Lorazepam as needed (5) Asthma: Stable at this time -Continue albuterol as needed (6) Endometriosis: With a history of severe endometriosis with fulguration of endometriosis in the past with laparoscopic surgeries with [employer] she follows with at [facility] Is known to have endometriosis on her bowels and uterus -Has a Mirena IUD in place and also takes p.o. progestin daily hCG is negative (7) SMAS (superior mesenteric artery syndrome): Status post a strong's procedure in 2016 at [facility] which relieved some of her symptoms but then started having significant intestinal dysmotility after that time (8) Hypokalemia: Resolved after replacement initially -Follow BMP in the morning (9) Hypophosphatemia: Resolved after replacement (10) Adrenal insufficiency: Has had a diagnosis of adrenal insufficiency for 2 years or so now and sees endocrinology. Is maintained typically on p.o. hydrocortisone 20 mg daily -She has not been able to tolerate her p.o. hydrocortisone and her blood pressures were quite low today This may also be contributing to her nausea and vomiting -Accu-Cheks every 6 hours to watch for hypoglycemia -Start IV hydrocortisone and increased to 100 mg IV every 8 hours -Hold home p.o. hydrocortisone (11) On total parenteral nutrition (TPN): Due to intestinal dysmotility and gastroparesis with poor p.o. intake at home -Continue TPN here once patient is able to tolerate-states that it makes her more nauseated (12) Jejunostomy tube in situ: Placed originally for plans for enteral feeding but now not used for that. Occasionally used for drainage if having nausea, however mom reports she tried draining it since being here at the hospital and nothing came out. (13) Sphincter of Oddi spasm: As above Follows with GI Dr. Lantigua at [facility] (14) Gastroparesis: Noted as above (15) Anemia: Hemoglobin typically in the range of 10-11 over the past couple of years, it is and normocytic anemia and is likely due to chronic disease, however may have nutritional deficiencies Hemoglobin today is down to 9.2 and is likely hemo-dilutional from copious IV fluids as there is no evidence of bleeding from anywhere -Check iron studies, B12, folate in the morning -Check TSH -Follow CBC (16) DVT prophylaxis: SCDs Disposition-remain on medical telemetry unit, no plans for transfer at this time to [facility] at this time after discussion with their on-call GI physician on 11/19 Subjective I saw this patient on 3 occasions today. Her nausea and vomiting had stopped last evening but then started again this morning. She was vomiting bile later in the evening as well. She has had several loose stools throughout the day which is normal for her. Her mom does most of the talking as the patient is just not feeling well at all. She reports that the patient requires multiple m otility drugs to keep her bowels moving and does a daily enema system that slowly puts in 500 mL's of fluid per rectum to try to loosen up impacted stool. The patient reports continued epigastric pain that is spasming in nature and radiates straight through to the back. It feels very similar to all her previous attacks of sphincter of Oddi dysfunction. She continues to have profound nausea which the mom says that the patient has had in the past, however the only other time previously where her nausea and vomiting was this prolonged was when she was hospitalized for a prolonged period of time after her J-tube placement and had sepsis due to an infection at the J-tube site. The patient denies headache or sore throat, no sinus congestion, no cough or chest pain, no shortness of breath. She denies urinary symptoms, no blood in her vomit or stool or urine. She has no joint pains or rashes. She was feeling lightheaded earlier in the day and her blood pressure was in the 80s systolic. She was not able to take her oral hydrocortisone today and IV hydrocortisone was therefore started along with being given a bolus of LR. The mom also reports that the patient tends to get very nauseated with any IV antibiotics. She even reports her nausea is worse with receiving TPN when she is nauseated to begin with. She is declining to receive her TPN tonight. The patient spiked a fever last night and was started on vancomycin; blood cultures and fungal cultures were drawn. I called down to [facility] again today on 2 occasions-I was advised I would receive a call back after the first call but after several hours of not hearing back from them, I returned the call. The on-call assistant superintendent thought that her current course of action was no different than what they would do down there. He agreed with placement of an NG tube if her nausea did not resolve with antiemetics. He agreed with a trial of Emend as an antiemetic, and he also agreed with covering with antibiotics for line infection versus GI infection. I also discussed the case with [facility] gastroenterology that saw her today. Telemetry with normal sinus rhythm and sinus tachycardia Review of Systems Review of Systems: All systems reviewed & are unremarkable except as noted in HPI & below Physical Exam Constitutional: + ill appearing and + thin; no acute distress Eyes: PERRL, conjunctivae normal, anicteric sclerae ENMT: external ear and nose normal, oropharynx normal Mouth: no lip abnormality Neck: trachea midline, no thyromegaly normal visual inspection; no anterior neck swelling and no submandibular swelling Respiratory: normal respiratory effort, lungs clear to auscultation Cardiovascular: RRR, no murmur, no edema Gastrointestinal (Abdomen): Inspection/Auscultation: normal bowel sounds; + abdomen abnormal to inspection (J-tube site in the right lower quadrant without any surrounding erythema or drainage, multiple surgical site incisional scars over abdomen) and abdomen not distended Percussion/Palpation: + abdomen tender (Mild in the epigastric region without guarding or rebound tenderness); no guarding, abdomen not rigid, no hernia and no abdominal mass Musculoskeletal: Extremities: extremities normal to inspection; no cyanosis and no clubbing Skin: no rashes, warm and dry Neurologic: moves all extremities and awake; no focal motor deficits Psychiatric: A+Ox3, euthymic affect Results & Data Vital Signs (Past 12 Hours) Vital Signs Temp Pulse Resp BP Pulse Ox 11/19/18 15:12 36.6 C 102 H 16 90/61 L 98 11/19/18 11:43 36.8 C 92 H 16 91/58 L 99 11/19/18 10:55 100/67 11/19/18 08:44 82/46 L 11/19/18 08:31 87/52 L Laboratory Results 11/19/18 11/19/18 11/19/18 Range/Units 18:02 11:12 05:44 WBC (4.8-10.8) K/uL RBC (4.2-5.4) M/uL Hgb (12.0-16.0) g/dL Hct (37-47) % MCV (80-100) fL MCH (25-34) pg MCHC (32-36) g/dL RDW Std Deviation (36.4-46.3) fL RDW Coeff of Tim (11.5-14.5) % Plt Count (130-400) K/uL MPV (7.4-10.4) fL Immature Gran % (Auto) % Neut % (Auto) % Lymph % (Auto) % [place] % (Auto) % Eos % (Auto) % Baso % (Auto) % Immature Gran # (Auto) (0.00-0.02) K/uL Neut # (Auto) (1.4-6.5) K/uL Lymph # (Auto) (1.2-3.4) K/uL [place] # (Auto) (0.11-0.59) K/uL Eos # (Auto) (0-0.5) K/uL Baso # (Auto) (0-0.2) K/uL Sodium (136-145) mmol/L Potassium (3.5-5.1) mmol/L Chloride (98-107) mmol/L Carbon Dioxide (21-32) mmol/L Anion Gap (3-11) BUN (7-18) mg/dl Creatinine (0.6-1.2) mg/dl Est Cr Clr Drug Dosing ml/min Est GFR ( Amer) Est GFR (Non-Af Amer) BUN/Creatinine Ratio (10-20) Glucose (70-99) mg/dl POC Glucose 89 84 (70-99) Calcium (8.5-10.1) mg/dl Phosphorus (2.5-4.9) mg/dl Magnesium (1.8-2.4) mg/dl Total Bilirubin 0.3 (0.2-1) mg/dl Direct Bilirubin < 0.1 (0-0.2) mg/dl AST 34 (15-37) U/L ALT 38 (12-78) U/L Alkaline Phosphatase 46 (45-117) U/L Total Protein 5.6 L (6.4-8.2) gm/dl Albumin 2.8 L (3.4-5.0) gm/dl Triglycerides (0-150) mg/dl Lipase 55 L (73-393) U/L HCG, Qual (Negative) 11/19/18 11/19/18 11/18/18 Range/Units 05:44 05:44 23:37 WBC 4.39 L D (4.8-10.8) K/uL RBC 3.22 L (4.2-5.4) M/uL Hgb 9.2 L (12.0-16.0) g/dL Hct 28.4 L (37-47) % MCV 88.2 (80-100) fL MCH 28.6 (25-34) pg MCHC 32.4 (32-36) g/dL RDW Std Deviation 40.8 (36.4-46.3) fL RDW Coeff of Tim 12.7 (11.5-14.5) % Plt Count 192 (130-400) K/uL MPV 10.0 (7.4-10.4) fL Immature Gran % (Auto) 0.2 % Neut % (Auto) 86.1 % Lymph % (Auto) 9.1 % [place] % (Auto) 4.6 % Eos % (Auto) 0.0 % Baso % (Auto) 0.0 % Immature Gran # (Auto) 0.01 (0.00-0.02) K/uL Neut # (Auto) 3.78 (1.4-6.5) K/uL Lymph # (Auto) 0.40 L (1.2-3.4) K/uL [place] # (Auto) 0.20 (0.11-0.59) K/uL Eos # (Auto) 0.00 (0-0.5) K/uL Baso # (Auto) 0.00 (0-0.2) K/uL Sodium 141 (136-145) mmol/L Potassium 4.0 D (3.5-5.1) mmol/L Chloride 112 H (98-107) mmol/L Carbon Dioxide 22 (21-32) mmol/L Anion Gap 7.0 (3-11) BUN 5 L (7-18) mg/dl Creatinine 0.52 L (0.6-1.2) mg/dl Est Cr Clr Drug Dosing 122.9 ml/min Est GFR ( Amer) > 150.0 Est GFR (Non-Af Amer) 131.9 BUN/Creatinine Ratio 10.0 (10-20) Glucose 99 (70-99) mg/dl POC Glucose 109 H (70-99) Calcium 7.9 L (8.5-10.1) mg/dl Phosphorus 3.4 D (2.5-4.9) mg/dl Magnesium 2.0 (1.8-2.4) mg/dl Total Bilirubin (0.2-1) mg/dl Direct Bilirubin (0-0.2) mg/dl AST (15-37) U/L ALT (12-78) U/L Alkaline Phosphatase (45-117) U/L Total Protein (6.4-8.2) gm/dl Albumin (3.4-5.0) gm/dl Triglycerides 75 (0-150) mg/dl Lipase (73-393) U/L HCG, Qual (Negative) 11/18/18 Range/Units 08:14 WBC (4.8-10.8) K/uL RBC (4.2-5.4) M/uL Hgb (12.0-16.0) g/dL Hct (37-47) % MCV (80-100) fL MCH (25-34) pg MCHC (32-36) g/dL RDW Std Deviation (36.4-46.3) fL RDW Coeff of Tim (11.5-14.5) % Plt Count (130-400) K/uL MPV (7.4-10.4) fL Immature Gran % (Auto) % Neut % (Auto) % Lymph % (Auto) % [place] % (Auto) % Eos % (Auto) % Baso % (Auto) % Immature Gran # (Auto) (0.00-0.02) K/uL Neut # (Auto) (1.4-6.5) K/uL Lymph # (Auto) (1.2-3.4) K/uL [place] # (Auto) (0.11-0.59) K/uL Eos # (Auto) (0-0.5) K/uL Baso # (Auto) (0-0.2) K/uL Sodium (136-145) mmol/L Potassium (3.5-5.1) mmol/L Chloride (98-107) mmol/L Carbon Dioxide (21-32) mmol/L Anion Gap (3-11) BUN (7-18) mg/dl Creatinine (0.6-1.2) mg/dl Est Cr Clr Drug Dosing ml/min Est GFR ( Amer) Est GFR (Non-Af Amer) BUN/Creatinine Ratio (10-20) Glucose (70-99) mg/dl POC Glucose (70-99) Calcium (8.5-10.1) mg/dl Phosphorus (2.5-4.9) mg/dl Magnesium (1.8-2.4) mg/dl Total Bilirubin (0.2-1) mg/dl Direct Bilirubin (0-0.2) mg/dl AST (15-37) U/L ALT (12-78) U/L Alkaline Phosphatase (45-117) U/L Total Protein (6.4-8.2) gm/dl Albumin (3.4-5.0) gm/dl Triglycerides (0-150) mg/dl Lipase (73-393) U/L HCG, Qual Negative (Negative) Diagnostic Findings And abdominal x-ray series was obtained and the images were personally reviewed by me and agree with the following report: CHEST AND ABDOMEN 2 VIEWS HISTORY: vomiting, generalized abdominal pain COMPARISON: Chest and abdominal series 11/18/2018. FINDINGS: The lungs are clear. No pleural effusions. No pneumothorax. The heart is normal in size. Left subclavian Port-A-Cath terminates at the SVC. No pneumoperitoneum. No pneumatosis. Prior cholecystectomy. A gastrojejunostomy tube is again noted and unchanged in position. The bowel gas pattern is unremarkable. No evidence for bowel obstruction. An IUD and surgical clips are again noted in the pelvis. These remain unchanged. IMPRESSION: 1. No acute process within the chest. 2. No evidence for bowel obstruction. PG Care Time/CCT Total # of Minutes Spent Total Time Spent with Patient: Total time spent is greater than 50% in coordination of care (as documented) at patient's floor/unit and/or counseling patient:
[2018-11-19] MEDS: LINACLOTIDE PO SCH (20:11)
[2018-11-19] MEDS: CETIRIZINE HCL 10 MG TABLET PO SCH (20:11)
[2018-11-20] MEDS: LORazepam 0.5 MG/1 ML VIAL IV PRN ×4 (03:22→22:47)
[2018-11-20] MEDS: VANCOMYCIN HCL 750 MG in SODIUM CHLORIDE 0.9% 250 ML IV SCH ×3 (03:23→18:42)
[2018-11-20] MEDS: LACTATED RINGER'S 1,000 ML IV SCH ×3 (04:35→19:35)
[2018-11-20] MEDS: HYDROCORTISONE SOD 100 MG in SYRINGE 0 ML IV SCH ×3 (04:36→19:36)
[2018-11-20] MEDS: ONDANSETRON INJ 2 MG/ML 2 ML VIAL IV PRN (05:46)
[2018-11-20 07:14] LABS: Alanine Aminotransferase 25 U/L (12-78); Albumin Level 2.7 gm/dl (3.4-5.0); Aspartate Aminotransferase 16 U/L (15-37); BUN Creatinine Ratio 15.2 (10-20); Bilirubin Direct < 0.1 mg/dl (0-0.2); Bilirubin,Total 0.3 mg/dl (0.2-1); Blood Urea Nitrogen 8 mg/dl (7-18); Calcium 7.8 mg/dl (8.5-10.1); Carbon Dioxide 23 mmol/L (21-32); Chloride 109 mmol/L (98-107); Est GFR (African American) > 150.0; Glucose 119 mg/dl (70-99); Iron 10 mcg/dl (35-150); Magnesium 1.7 mg/dl (1.8-2.4); Potassium 3.5 mmol/L (3.5-5.1); Sodium 142 mmol/L (136-145); Total Protein 5.1 gm/dl (6.4-8.2)
[2018-11-20 07:23] LABS: Alkaline Phosphatase 40 U/L (45-117); Ferritin 19.8 ng/ml (8-388); Transferrin 175 mg/dl (200-360); Transferrin Percent Saturation 4 % (15-50)
[2018-11-20] MEDS: PANTOprazole 40 MG TAB PO SCH (07:52)
[2018-11-20] MEDS: LINACLOTIDE PO SCH ×2 (07:52→20:31)
[2018-11-20] MEDS: NORETHINDRONE 5 MG TAB PO SCH (07:52)
--- NOTE | 2018-11-20 08:08 | XRay Report ---
XR chest 1V portable HISTORY: NG tube placement COMPARISON: Chest 11/19/2018. FINDINGS: Nasogastric tube terminates below the diaphragm. The tip is not included on this study. A g astrojejunostomy tube is are slightly visualized. Left subclavian Port-A-Cath terminates at the SVC. The lungs are clear. No pleural effusions. No pneumothorax. IMPRESSION: The nasogastric tube terminates below the diaphragm. Electronically signed by: Victor Hugo Snowden M.D. 11/20/2018 8:07 AM
[2018-11-20 08:31] LABS: Folate (Folic Acid) 18.75 ng/ml (>5.38)
[2018-11-20] MEDS ORDERED: POTASSIUM CHLORIDE / WTR 20 MEQ/100 ML PLCT IV ONE (09:00)
[2018-11-20] MEDS: MAGNESIUM SULFATE / D5W 1 GM/100 ML BAG IV SCH ×2 (09:19→10:26)
[2018-11-20] MEDS ORDERED: ONDANSETRON INJ 2 MG/ML 2 ML VIAL IV PRN (09:27)
--- NOTE | 2018-11-20 09:32 | Hospitalist Progress Note ---
Date of Service November 20, 2018 Assessment & Plan (1) Nausea and vomiting: This patient is a 28 y/o female with a very complex history including intestinal dysmotility status post placement of J-tube and on chronic TPN, gastroparesis, sphincter of oddi dysfunction, adrenal insufficiency, and en dometriosis. Presents to the ER for the second time in as many days for cramping epigastric abdominal pain which radiates to her back, and intractable nausea and vomiting. A CT of the abdomen was obtained the prior day and was consistent with possible enteritis, although a diagnosis of dysmotility would also make sense. The pt states that she is allergic to all antiemetics aside from Zofran as they make her "jittery". She was provided with narcotics and ativan by the PA in the ER and states that they have not been effective. Initial labs are notable for hypokalemia. The pt's condition is advanced as she is presently requiring TPN for nutrition and has a J tube for drainage. She is under the care of Dr Lantigua at [facility]. Nausea persists but no further vomiting Repeat abdominal series without any evidence of obstruction. Patient has a history of being very sensitive to antibiotics and her mom is concerned that perhaps the antibiotics are now making her nauseated -NGT now placed to LIS on AM of 11/20 -Continue Zofran as needed and increase dose to 8mg IV q6h -Received one dose of Emend IV on evening of 11/19 with some improvement-will not give another dose at this point -Appreciate GI consultation here -Have discussed her case with the on-call reporting coordinator at [facility] on 11/19-they are in agreement with her current plan of care and were in agreement with NG tube placement if antiemetics are not working -continue current dose of stress dose steroids of IV hydrocortisone as below -Continue to keep bowels moving from below given history of severe intestinal dysmotility which could be contributing to nausea vomiting-she will attempt her enema today if nausea improves (as gets more nauseated with standing) -Continue IV fluids for maintenance -Patient declines to have her TPN at this time as says this can worsen her nausea -dc Levaquin and Flagyl as no further fevers and may be worsening nausea -Continue Accu-Cheks every 6 hours for NPO status nad h/o hypoglycemia -continue ativan as needed for nausea (2) Fever: Spiked a fever on the evening of admission on 11/18 along with tachycardia. No further fevers since that time. No leukocytosis noted and actually became mildly leukopenic on day after the fever Could have been a viral illness or VGE? No clear source but does have a port in place as well as a J-tube, neither of which appears infected on exam. It could be an enterocolitis -Blood cultures and fungal culture were obtained-fungal smear is negative-no growth to date on cultures Urinalysis does not show any evidence of infection CT scan of the abdomen/pelvis on 11/16 had no evidence of abscess or pancreatitis, lipase remains normal, LFTs normal, has had a cholecystectomy previously -Procalcitonin negative which argues against bacterial infection -continue covering with vancomycin in case of port infection and dc tomorrow if BCxs remain negative -will dc levofloxacin and metronidazole as no clear GI source of infection -Continue to follow all cultures (3) Generalized intestinal dysmotility: Dysmotility/gastroparesis -ongoing since 2016 and was worsened after a procedure for her SMA syndrome Follows with GI specialist at [facility] on a monthly basis-unfortunately, he was unable to be reached and may be out of the office for the week. However, discussed her case with GI specialist on-call at [facility] who agreed with current plan of care She is unable to tolerate any of her p.o. meds at this time due to nausea and vomiting She is having frequent loose stools which is normal for her, however her mom reports that it is thought that she frequently has loose stools around impacted stool in the colon -When able to tolerate p.o., would restart home Linzess, trimethobenzamide, domperidone which she obtains from [facility] -Can continue her daily enema system that her mom brought from home (4) Epigastric abdominal pain: Likely secondary to her sphincter of Oddi spasm as this feels similar to her in the past-somewhat improved today CT of the abdomen/pelvis did not show any abnormalities on 11/16 other than fluid in the bowel which may be from enterocolitis versus intestinal dysmotility LFTs and lipase continue to be normal and not likely to have pancreatitis She is not having any blood in her vomit or stool to suggest bleeding from a gastric ulcer She does not have any evidence at all of bowel obstruction or perforation on x- ray images here -Continue Dilaudid as needed sparingly to avoid worsening her intestinal dysmotility -As unable to tolerate p.o. antacids, continue IV ranitidine 50 mg IV every 8 hours IV Lorazepam as needed (5) Asthma: Stable at this time -Continue albuterol as needed (6) Endometriosis: With a history of severe endometriosis with fulguration of endometriosis in the past with laparoscopic surgeries with [employer] she follows with at [facility] Is known to have endometriosis on her bowels and uterus -Has a Mirena IUD in place and also takes p.o. progestin daily hCG is negative (7) SMAS (superior mesenteric artery syndrome): Status post a strong's procedure in 2016 at [facility] which relieved some of her symptoms but then started having significant intestinal dysmotility after that time (8) Hypokalemia: Resolved after replacement initially, today borderline low -replace with KCl 20meq IV x 1 -Follow BMP in the morning (9) Hypophosphatemia: Resolved after replacement (10) Adrenal insufficiency: Has had a diagnosis of adrenal insufficiency for 2 years or so now and sees endocrinology. Is maintained typically on p.o. hydrocortisone 20 mg daily -She has not been able to tolerate her p.o. hydrocortisone and her blood pressures were quite low on day after admission, now improved but continues with some orthostatic symptoms with standing up This may also be contributing to her nausea and vomiting -Accu-Cheks every 6 hours to watch for hypoglycemia -continue IV hydrocortisone and increased to 100 mg IV every 8 hours -Hold home p.o. hydrocortisone (11) On total parenteral nutrition (TPN): Due to intestinal dysmotility and gastroparesis with poor p.o. intake at home -Continue TPN here once patient is able to tolerate-states that it makes her more nauseated-on hold for today (12) Jejunostomy tube in situ: Placed originally for plans for enteral feeding but now not used for that. Occasionally used for drainage if having nausea, however mom reports she tried draining it since being here at the hospital and nothing came out. No signs of infection of site (13) Sphincter of Oddi spasm: As above Follows with GI Dr. Lantigua at [facility] (14) Gastroparesis: Noted as above (15) Anemia: Hemoglobin typically in the range of 10-11 over the past couple of years, it is and normocytic anemia and is due to a combination of chronic disease, but Fe studies here also showing severely low ferritin at 19 indicative of comorbid Fe-deficiency B12 and Folate are normal, TSH normal Hemoglobin 9.2 andmay be hemo-dilutional from copious IV fluids as there is no evidence of bleeding from anywhere -Needs IV iron but given very sensitive to medicaitons due to nausea, will hold off for now -could arrange for IV iron as an outpt -Follow CBC in the AM (16) DVT prophylaxis: SCDs Disposition-take off tele unit to Med/Surg, no plans for transfer at this time to [facility] at this time after discussion with their on-call GI physician on 11/19 Subjective Still nauseated through th enight but no further vomiting. Feels the flagyl made her worse again but the Emend did help. Had NGT placed this AM and just was hooked u p to LIS just prior to my seeing her. No output yet through NGT. No BM so far today, feels nauseated with getting up and may be having orthostasis. No room spinning/vertigo symptoms Abd pain in epigastric region was worse earlier, but now is a 5/10 without pain meds, better than previous. Feels the ativan helps her nausea as well. No more fevers. Needs IV iron but mom and pt hesitant to have this now until nausea i s improved. She also does not want her TPN today as this worsens her nausea Tele with NSR, ST. Pt and mom requesting to have monitor removed Review of Systems Review of Systems: All systems reviewed & are unremarkable except as noted in HPI & below Physical Exam Constitutional: + ill appearing and + thin; no acute distress Eyes: PERRL, conjunctivae normal, anicteric sclerae ENMT: Mouth: no lip abnormality Neck: trachea midline, no thyromegaly normal visual inspection; no anterior neck swelling and no submandibular swelling Respiratory: normal respiratory effort, lungs clear to auscultation Cardiovascular: RRR, no murmur, no edema Gastrointestinal (Abdomen): Inspection/Auscultation: normal bowel sounds; + abdomen abnormal to inspection (J-tube site in the right lower quadrant without any surrounding erythema or drainage, multiple surgical site incisional scars over abdomen) and abdomen not distended Percussion/Palpation: abdomen soft; abdomen nontender, no guarding, abdomen not rigid, no hernia and no abdominal mass Musculoskeletal: Extremities: extremities normal to inspection; no cyanosis and no clubbing Skin: no rashes, warm and dry Neurologic: moves all extremities and awake; no focal motor deficits Psychiatric: A+Ox3, euthymic affect Results & Data Vital Signs (Past 12 Hours) Vital Signs Temp Pulse Pulse Resp BP Pulse Ox 11/20/18 08:00 112 H 11/20/18 07:42 36.7 C 77 17 107/74 98 11/20/18 04:09 36.8 C 71 20 97/86 L 99 11/20/18 00:09 37.0 C 87 20 91/58 L 97 11/20/18 00:00 80 Laboratory Results 11/20/18 11/20/18 11/20/18 Range/Units 07:16 06:14 06:14 Sodium (136-145) mmol/L Potassium (3.5-5.1) mmol/L Chloride (98-107) mmol/L Carbon Dioxide (21-32) mmol/L Anion Gap (3-11) BUN (7-18) mg/dl Creatinine (0.6-1.2) mg/dl Est Cr Clr Drug Dosing ml/min Est GFR ( Amer) Est GFR (Non-Af Amer) BUN/Creatinine Ratio (10-20) Glucose (70-99) mg/dl POC Glucose 105 H (70-99) Calcium (8.5-10.1) mg/dl Phosphorus (2.5-4.9) mg/dl Magnesium (1.8-2.4) mg/dl Iron (35-150) mcg/dl TIBC (250-450) mcg/dl Transferrin (200-360) mg/dl Transferrin % Sat (15-50) % Ferritin (8-388) ng/ml Total Bilirubin (0.2-1) mg/dl Direct Bilirubin (0-0.2) mg/dl AST (15-37) U/L ALT (12-78) U/L Alkaline Phosphatase (45-117) U/L Total Protein (6.4-8.2) gm/dl Albumin (3.4-5.0) gm/dl Lipase (73-393) U/L Vitamin B12 860 (211-911) pg/ml Folate 18.75 (>5.38) ng/ml Procalcitonin < 0.05 (0-0.5) ng/ml TSH (0.300-4.500) uIu/ml HCG, Qual (Negative) 11/20/18 11/20/18 11/19/18 Range/Units 06:14 00:00 18:02 Sodium 142 (136-145) mmol/L Potassium 3.5 (3.5-5.1) mmol/L Chloride 109 H (98-107) mmol/L Carbon Dioxide 23 (21-32) mmol/L Anion Gap 10.0 (3-11) BUN 8 (7-18) mg/dl Creatinine 0.53 L (0.6-1.2) mg/dl Est Cr Clr Drug Dosing 129.0 ml/min Est GFR ( Amer) > 150.0 Est GFR (Non-Af Amer) 131.0 BUN/Creatinine Ratio 15.2 (10-20) Glucose 119 H (70-99) mg/dl POC Glucose 121 H 89 (70-99) Calcium 7.8 L (8.5-10.1) mg/dl Phosphorus 3.0 (2.5-4.9) mg/dl Magnesium 1.7 L (1.8-2.4) mg/dl Iron 10 L (35-150) mcg/dl TIBC 218 L (250-450) mcg/dl Transferrin 175 L (200-360) mg/dl Transferrin % Sat 4 L (15-50) % Ferritin 19.8 (8-388) ng/ml Total Bilirubin 0.3 (0.2-1) mg/dl Direct Bilirubin < 0.1 (0-0.2) mg/dl AST 16 (15-37) U/L ALT 25 (12-78) U/L Alkaline Phosphatase 40 L (45-117) U/L Total Protein 5.1 L (6.4-8.2) gm/dl Albumin 2.7 L (3.4-5.0) gm/dl Lipase 124 (73-393) U/L Vitamin B12 (211-911) pg/ml Folate (>5.38) ng/ml Procalcitonin (0-0.5) ng/ml TSH 0.358 (0.300-4.500) uIu/ml HCG, Qual (Negative) 11/19/18 11/19/18 11/18/18 Range/Units 11:12 05:44 08:14 Sodium (136-145) mmol/L Potassium (3.5-5.1) mmol/L Chloride (98-107) mmol/L Carbon Dioxide (21-32) mmol/L Anion Gap (3-11) BUN (7-18) mg/dl Creatinine (0.6-1.2) mg/dl Est Cr Clr Drug Dosing ml/min Est GFR ( Amer) Est GFR (Non-Af Amer) BUN/Creatinine Ratio (10-20) Glucose (70-99) mg/dl POC Glucose 84 (70-99) Calcium (8.5-10.1) mg/dl Phosphorus (2.5-4.9) mg/dl Magnesium (1.8-2.4) mg/dl Iron (35-150) mcg/dl TIBC (250-450) mcg/dl Transferrin (200-360) mg/dl Transferrin % Sat (15-50) % Ferritin (8-388) ng/ml Total Bilirubin 0.3 (0.2-1) mg/dl Direct Bilirubin < 0.1 (0-0.2) mg/dl AST 34 (15-37) U/L ALT 38 (12-78) U/L Alkaline Phosphatase 46 (45-117) U/L Total Protein 5.6 L (6.4-8.2) gm/dl Albumin 2.8 L (3.4-5.0) gm/dl Lipase 55 L (73-393) U/L Vitamin B12 (211-911) pg/ml Folate (>5.38) ng/ml Procalcitonin (0-0.5) ng/ml TSH (0.300-4.500) uIu/ml HCG, Qual Negative (Negative) Diagnostic Findings CXR and KUB with NGT in place, no other abnormalities PG Care Time/CCT Total # of Minutes Spent Total Time Spent with Patient: Total time spent is greater than 50% in coordination of care (as documented) at patient's floor/unit and/or counseling patient:
[2018-11-20] MEDS ORDERED: CHLORASEPTIC 1.4% SOLN 180 ML BTL MT PRN (09:33)
--- NOTE | 2018-11-20 09:34 | XRay Report ---
KUB HISTORY: NGT placement COMPARISON: Chest 11/19/2018. FINDINGS: The bowel gas pattern is unremarkable. There are no dilated loops of small bowel to suggest an obstruction. No renal calculi. No ureteral calculi. No pneumoperitoneum or pneumatosis. Gastroje junostomy tube is unchanged in position. Nasogastric tube terminates at the expected location of the gastric antrum prior cholecystectomy. IMPRESSION: The nasogastric tube terminates at the expected location of the gastric antrum. Electronically signed by: Victor Hugo Snowden M.D. 11/20/2018 9:33 AM
--- NOTE | 2018-11-20 11:41 | Gastroenterology Progress Note ---
Date of Service November 20, 2018 Assessment & Plan (1) Intractable nausea and vomiting: Persistent nausea. I suspect she has a viral infection on top of a sick gut given nausea vomiting and diarrhea. continue supportive care. Discontinue the NGT. Decompress via G tube as needed. Follow up with [facility] after discharge, suspect will take a few days for recovery. Encourage out of bed and movement. Present on Admission?: Yes Subjective May be slightly improved, still with nausea. NGT has not helped. Antibiotics discontinued Physical Exam Physical Exam: NAD Eyes: PERRL, conjunctivae normal, anicteric sclerae Gastrointestinal (Abdomen): Inspection/Auscultation: abdomen normal to inspection and + scaphoid Percussion/Palpation: abdomen soft Gtube in place and a J tube Psychiatric: Affect: + flat affect most of the conversation done by mother Results & Data Vital Signs (Past 12 Hours) Vital Signs Temp Pulse Pulse Resp BP Pulse Ox 11/20/18 08:00 112 H 11/20/18 07:42 36.7 C 77 17 107/74 98 11/20/18 04:09 36.8 C 71 20 97/86 L 99 11/20/18 00:09 37.0 C 87 20 91/58 L 97 11/20/18 00:00 80
[2018-11-20] MEDS ORDERED: VANCOMYCIN TROUGH ONE (12:30)
[2018-11-20] MEDS: ONDANSETRON HCL 8 MG in DEXTROSE 5% 50 ML IV PRN ×2 (13:09→19:35)
--- NOTE | 2018-11-20 13:26 | Pharmacy Report ---
Pharmacy Abx Dose Short Note - Date of Service November 20, 2018 - Assessment & Plan Assessment 28 year old F receiving vancomycin IV for treatment of possible infected port. Day # 3 of antimicrobial therapy. Plan is to discontinue vancomycin if blood cultures remain negative tomorrow (11/21/18) -blood cultures from 11/18: no growth at 24 hours Patient spiked fevers on 11/18, but has been afebrile since that time Plan Vancomycin * Trough level of 10.4 mcg/mL is subtherapeutic * Change to 750 mg IV every 6 hours * Goal trough level for possible bacteremia : 15 to 20 mcg/mL * Will order follow-up vancomycin trough if vanco is continued Pharmacy will continue to follow and will adjust dose/frequency as necessary. Thank you.
[2018-11-20] MEDS: HYDROmorphone INJ 0.5 MG/0.5 ML SYR IV PRN (19:46)
[2018-11-21] MEDS: ONDANSETRON HCL 8 MG in DEXTROSE 5% 50 ML IV PRN ×3 (01:37→17:08)
[2018-11-21] MEDS: VANCOMYCIN HCL 750 MG in SODIUM CHLORIDE 0.9% 250 ML IV SCH ×2 (01:47→06:50)
[2018-11-21] MEDS: HYDROmorphone INJ 0.5 MG/0.5 ML SYR IV PRN ×2 (01:48→21:29)
[2018-11-21] MEDS: LACTATED RINGER'S 1,000 ML IV SCH ×3 (03:41→21:30)
[2018-11-21] MEDS: HYDROCORTISONE SOD 100 MG in SYRINGE 0 ML IV SCH ×2 (03:42→12:14)
[2018-11-21] MEDS: LORazepam 0.5 MG/1 ML VIAL IV PRN ×2 (05:52→20:50)
[2018-11-21 06:21] LABS: Basophils # (auto) 0.02 K/uL (0-0.2); Basophils % (auto) 0.4 %; Hematocrit (blood only) 24.8 % (37-47); Hemoglobin 8.3 g/dL (12.0-16.0); Immature Granulocytes # (auto) 0.01 K/uL (0.00-0.02); Immature Granulocytes % (auto) 0.2 %; Lymphocytes # (auto) 0.74 K/uL (1.2-3.4); Lymphocytes % (auto) 14.4 %; Mean Corpuscular Hgb Conc 33.5 g/dL (32-36); Mean Corpuscular Volume 86.1 fL (80-100); Mean Platelet Volume 10.5 fL (7.4-10.4); Monocytes # (auto) 0.36 K/uL (0.11-0.59); Platelet Count 205 K/uL (130-400); RDW Coefficient of Variation 12.7 % (11.5-14.5); Red Blood Count 2.88 M/uL (4.2-5.4); White Blood Count 5.13 K/uL (4.8-10.8)
[2018-11-21 06:51] LABS: Alanine Aminotransferase 20 U/L (12-78); Albumin Level 2.5 gm/dl (3.4-5.0); Aspartate Aminotransferase 12 U/L (15-37); BUN Creatinine Ratio 17.9 (10-20); Bilirubin Direct < 0.1 mg/dl (0-0.2); Blood Urea Nitrogen 9 mg/dl (7-18); Calcium 7.7 mg/dl (8.5-10.1); Carbon Dioxide 28 mmol/L (21-32); Chloride 107 mmol/L (98-107); Creatinine Clr Calc Pharmacy 145.5 ml/min; Est GFR (African American) > 150.0; Est GFR (Non-African American) 136.3; Glucose 103 mg/dl (70-99); Magnesium 1.9 mg/dl (1.8-2.4); Potassium 3.2 mmol/L (3.5-5.1); Sodium 143 mmol/L (136-145)
[2018-11-21 06:54] LABS: Alkaline Phosphatase 32 U/L (45-117); Bilirubin,Total 0.3 mg/dl (0.2-1); Phosphorus 3.3 mg/dl (2.5-4.9); Total Protein 4.6 gm/dl (6.4-8.2)
[2018-11-21] MEDS: NORETHINDRONE 5 MG TAB PO SCH (08:50)
[2018-11-21] MEDS: LINACLOTIDE PO SCH ×2 (08:50→21:31)
[2018-11-21] MEDS ORDERED: POTASSIUM CHLORIDE / WTR 20 MEQ/100 ML PLCT IV ONE (10:00)
[2018-11-21] MEDS ORDERED: MAGNESIUM SULFATE / D5W 1 GM/100 ML BAG IV ONE (10:00)
[2018-11-21] MEDS ORDERED: POTASSIUM CHLORIDE / WTR 10 MEQ/100 ML PLCT IV ONE (12:00)
--- NOTE | 2018-11-21 12:09 | Gastroenterology Progress Note ---
Date of Service November 21, 2018 Assessment & Plan (1) Intractable nausea and vomiting: Overall better. Expect 24 to 48 hrs in patient care. May need endocrine eval again, patient and family report dropping blood glucose after stopping TPN. Should follow up with Bill. Note Low Hb. Hematology work up is planned per patimohsenn. No evidence of blood loss seen, repeat counts and monitor. Patient ready to rial PO. Ok to give PO liquids, start with clears. If needed Ok to trial low volume J tube feed at 20cc/hr. Present on Admission?: Yes Subjective Patient looks better, more interactive. Nausea better. Physical Exam Gastrointestinal (Abdomen): Inspection/Auscultation: normal bowel sounds Percussion/Palpation: abdomen soft Results & Data Vital Signs (Past 12 Hours) Vital Signs Temp Pulse Resp BP Pulse Ox 11/21/18 07:51 36.5 C 57 L 18 99/66 L 98 11/20/18 23:58 36.7 C 59 L 18 99/64 L 99
--- NOTE | 2018-11-21 14:25 | Hospitalist Progress Note ---
Date of Service November 21, 2018 Assessment & Plan (1) Nausea and vomiting: This patient is a 28 y/o female with a very complex history including intestinal dysmotility status post placement of J-tube and on chronic TPN, gastroparesis, sphincter of Oddi dysfunction, adrenal insufficiency, and en dometriosis. Presents to the ER for the second time in as many days for cramping epigastric abdominal pain which radiates to her back, and intractable nausea and vomiting. A CT of the abdomen was obtained the prior day and was consistent with possible enteritis, although a diagnosis of dysmotility would also make sense. The pt states that she is allergic to all antiemetics aside from Zofran as they make her "jittery". Initial labs were notable for hypokalemia. The pt's condition is advanced as she is presently requiring TPN for nutrition and has a J tube for drainage. She is under the care of Dr Lantigua at [facility]. Finally is much improved today, only minimal residual nausea, no further vomiting Repeat abdominal series without any evidence of obstruction on the day after admission. Patient has a history of being very sensitive to almost any medication including her TPN-all cause nausea With fever, elevated monocytes on differential, and N/V, likely had a viral gastroenteritis in the setting of severe intestinal dysmotility at baseline -NGT was placed to LIS on AM of 11/20, but removed later in the day when it made no difference and had no output -was given stress dose steroids -Continue Zofran as needed -Received one dose of Emend IV on evening of 11/19 -Appreciate GI consultation here -discussed her case with the on-call manager leasing at [facility] on 11/19- they were in agreement with her plan of care here -Continue to keep bowels moving from below given history of severe intestinal dysmotility-has multiple promotility meds plus daily enema system -decrease IV fluids toLR 100 mLs/hr -Patient declines to have her TPN at this time as says this can worsen her nausea-has now been without TPN since admission -have since dcd Levaquin and Flagyl as no further fevers and was not likely bacterial infection -Continue Accu-Cheks every 6 hours for NPO status and h/o hypoglycemia-glucose is within normal limits -continue ativan as needed for nausea -advance diet to clears and then advance as tolerated (2) Fever: -Spiked a fever on the evening of admission on 11/18 along with tachycardia, epigastric abd pain. No further fevers since that time. -No leukocytosis noted and actually became mildly leukopenic on day after the fever -Could have been a viral illness or VGE given monocytosis on differential -Because she has a port in place as well as a J-tube (neither of which appear infected), and is on chronic TPN, blood and fungal blood cultures were taken and she was started on Vancomycin. -Fungal smear negative, all cultures NGTD -Blood cultures and fungal culture were obtained-fungal smear is negative-no growth to date on cultures -Urinalysis does not show any evidence of infection -CT scan of the abdomen/pelvis on 11/16 had no evidence of abscess or pancreatitis, lipase remains normal, LFTs normal, has had a cholecystectomy previously -Procalcitonin negative which argues against bacterial infection -can now dc vancomycin as BCxs remain negative for over 48 hours, remains afebrile -was given one day of levofloxacin and metronidazole in case of GI infection but then stopped due to causing excessive nausea -Continue to follow all cultures (3) Generalized intestinal dysmotility: Dysmotility/gastroparesis -ongoing since 2016 and was worsened after a procedure for her SMA syndrome Follows with GI specialist at [facility] on a monthly basis Discussed her case with GI specialist on-call at [facility] who agreed with current plan of care Almost back to her baseline now, N/V improved She has daily, frequent loose stools which is normal for her, however her mom reports that it is thought that she frequently has loose stools around impacted stool in the colon -now that she is brianna po, will restart home Linzess, trimethobenzamide, domperidone which she obtains from [place] -Can continue her daily enema system that her mom brought from home -Follow up at routine GI f/u appt on 12/02/18 at [place] (4) Epigastric abdominal pain: Likely secondary to her sphincter of Oddi spasm as this feels similar to her in the past-much improved today CT of the abdomen/pelvis did not show any abnormalities on 11/16 other than fluid in the bowel which may be from enterocolitis versus intestinal dysmotility LFTs and lipase continue to be normal and not likely to have pancreatitis She is not having any blood in her vomit or stool to suggest bleeding from a gastric ulcer She does not have any evidence at all of bowel obstruction or perforation on x- ray images here -Continue Dilaudid as needed sparingly to avoid worsening her intestinal dysmotility -restart home po ranitidine and dc IV form IV Lorazepam as needed (5) Asthma: Stable at this time -Continue albuterol as needed (6) Endometriosis: With a history of severe endometriosis with fulguration of endometriosis in the past with laparoscopic surgeries with W[employer]OLOG[employer] she follows with at [place] Is known to have endometriosis on her bowels and uterus -Has a Mirena IUD in place and also takes p.o. progestin daily hCG is negative (7) SMAS (superior mesenteric artery syndrome): Status post a strong's procedure in 2016 at [place] which relieved some of her symptoms but then started having significant intestinal dysmotility after that time (8) Hypokalemia: Persists, due to poor po intake -replace with KCl 20meq IV x 1 -Follow BMP in the morning (9) Hypophosphatemia: Resolved after replacement (10) Adrenal insufficiency: Has had a diagnosis of adrenal insufficiency for 2 years or so now and sees endocrinology. Is maintained typically on p.o. hydrocortisone 20 mg daily was not able to tolerate her p.o. hydrocortisone and her blood pressures were quite low on day after admission, now improved Adrenal insufficiency due to acute illness likely compounded her nausea and vomiting -Accu-Cheks every 6 hours to watch for hypoglycemia -continue IV hydrocortisone and taper down to 50mg IV every 8 hours -restart home p.o. hydrocortisone 20mg daily (11) On total parenteral nutrition (TPN): Due to intestinal dysmotility and gastroparesis with poor p.o. intake at home -Continue TPN here once patient is able to tolerate-states that it makes her more nauseated-on hold for today -plan is to hopefully wean off TPN and increase po intake or J-tube feeds in the future (12) Jejunostomy tube in situ: Placed originally for plans for enteral feeding but now not used for that. Occasionally used for drainage if having nausea, however mom reports she tried draining it since being here at the hospital and nothing came out. No signs of infection of site (13) Sphincter of Oddi spasm: As above Follows with GI Dr. Lantigua at [facility] (14) Gastroparesis: Noted as above (15) Anemia: Hemoglobin typically in the range of 10-11 over the past couple of years, it is and normocytic anemia and is due to a combination of chronic disease, but Fe studies here also showing severely low ferritin at 19 indicative of comorbid Fe-deficiency B12 and Folate are normal, TSH normal Hemoglobin down slightly to 8.3 today and may be hemo-dilutional from copious IV fluids as there is no evidence of bleeding from anywhere Hemoccult stool is negative -Needs IV iron but given very sensitive to medicaitons due to nausea, will hold off for now, but pt thinks she can tolerate this tomorrow-will order IV iron for in the AM -will also need to arrange for IV iron as an outpt-PCP can do this -Follow CBC in the AM (16) DVT prophylaxis: SCDs Disposition-continued stay but if can tolerate advancement of diet and doing well, can dc to home tomorrow/Thursday Subjective Pt feels significantly improved today. She is having only minimal nausea and is feeling hungry for clears and crackers. Only minimal epigastric abd pain. No heartburn. Still just slightly lightheaded with sitting up. Is in better spirits and is more talkative today. She plans on going outside when her dad brings her dog to visit in the healing garden later this afternoon. Discussed her care with GI. Pt wants to wait until tomorrow to get her IV iron to make sure she is feeling better as IV meds often make her nauseated. She still does not want to take her TPN yet. Review of Systems Review of Systems: All systems reviewed & are unremarkable except as noted in HPI & below Physical Exam Constitutional: + thin; no acute distress and not lethargic Eyes: PERRL, conjunctivae normal, anicteric sclerae ENMT: external ear and nose normal, oropharynx normal Mouth: no lip abnormality Neck: trachea midline, no thyromegaly normal visual inspection; no anterior neck swelling and no submandibular swelling Respiratory: normal respiratory effort, lungs clear to auscultation Cardiovascular: RRR, no murmur, no edema Gastrointestinal (Abdomen): Inspection/Auscultation: normal bowel sounds; + abdomen abnormal to inspection (J-tube site in the right lower quadrant without any surrounding erythema or drainage, multiple surgical site incisional scars over abdomen) and abdomen not distended Percussion/Palpation: abdomen soft; abdomen nontender, no guarding, abdomen not rigid, no hernia and no abdominal mass Musculoskeletal: Extremities: extremities normal to inspection; no cyanosis and no clubbing Skin: no rashes, warm and dry Neurologic: moves all extremities and awake; no focal motor deficits Psychiatric: A+Ox3, euthymic affect Results & Data Vital Signs (Past 12 Hours) Vital Signs Temp Pulse Resp BP Pulse Ox 11/21/18 07:51 36.5 C 57 L 18 99/66 L 98 Laboratory Results 11/21/18 11/21/18 11/21/18 Range/Units 20:17 12:19 06:00 WBC (4.8-10.8) K/uL RBC (4.2-5.4) M/uL Hgb (12.0-16.0) g/dL Hct (37-47) % MCV (80-100) fL MCH (25-34) pg MCHC (32-36) g/dL RDW Std Deviation (36.4-46.3) fL RDW Coeff of Tim (11.5-14.5) % Plt Count (130-400) K/uL MPV (7.4-10.4) fL Immature Gran % (Auto) % Neut % (Auto) % Lymph % (Auto) % [place] % (Auto) % Eos % (Auto) % Baso % (Auto) % Immature Gran # (Auto) (0.00-0.02) K/uL Neut # (Auto) (1.4-6.5) K/uL Lymph # (Auto) (1.2-3.4) K/uL [place] # (Auto) (0.11-0.59) K/uL Eos # (Auto) (0-0.5) K/uL Baso # (Auto) (0-0.2) K/uL Sodium (136-145) mmol/L Potassium (3.5-5.1) mmol/L Chloride (98-107) mmol/L Carbon Dioxide (21-32) mmol/L Anion Gap (3-11) BUN (7-18) mg/dl Creatinine (0.6-1.2) mg/dl Est Cr Clr Drug Dosing ml/min Est GFR ( Amer) Est GFR (Non-Af Amer) BUN/Creatinine Ratio (10-20) Glucose (70-99) mg/dl POC Glucose 121 H 114 H 99 (70-99) Calcium (8.5-10.1) mg/dl Phosphorus (2.5-4.9) mg/dl Magnesium (1.8-2.4) mg/dl Total Bilirubin (0.2-1) mg/dl Direct Bilirubin (0-0.2) mg/dl AST (15-37) U/L ALT (12-78) U/L Alkaline Phosphatase (45-117) U/L Total Protein (6.4-8.2) gm/dl Albumin (3.4-5.0) gm/dl Stool Occult Bld Scrn (Negative) 11/21/18 11/21/18 11/21/18 Range/Units 05:43 05:43 00:46 WBC 5.13 (4.8-10.8) K/uL RBC 2.88 L (4.2-5.4) M/uL Hgb 8.3 L (12.0-16.0) g/dL Hct 24.8 L (37-47) % MCV 86.1 (80-100) fL MCH 28.8 (25-34) pg MCHC 33.5 (32-36) g/dL RDW Std Deviation 40.0 (36.4-46.3) fL RDW Coeff of Tim 12.7 (11.5-14.5) % Plt Count 205 (130-400) K/uL MPV 10.5 H (7.4-10.4) fL Immature Gran % (Auto) 0.2 % Neut % (Auto) 78.0 % Lymph % (Auto) 14.4 % [place] % (Auto) 7.0 % Eos % (Auto) 0.0 % Baso % (Auto) 0.4 % Immature Gran # (Auto) 0.01 (0.00-0.02) K/uL Neut # (Auto) 4.00 (1.4-6.5) K/uL Lymph # (Auto) 0.74 L (1.2-3.4) K/uL [place] # (Auto) 0.36 (0.11-0.59) K/uL Eos # (Auto) 0.00 (0-0.5) K/uL Baso # (Auto) 0.02 (0-0.2) K/uL Sodium 143 (136-145) mmol/L Potassium 3.2 L (3.5-5.1) mmol/L Chloride 107 (98-107) mmol/L Carbon Dioxide 28 (21-32) mmol/L Anion Gap 7.0 (3-11) BUN 9 (7-18) mg/dl Creatinine 0.47 L (0.6-1.2) mg/dl Est Cr Clr Drug Dosing 145.5 ml/min Est GFR ( Amer) > 150.0 Est GFR (Non-Af Amer) 136.3 BUN/Creatinine Ratio 17.9 (10-20) Glucose 103 H (70-99) mg/dl POC Glucose (70-99) Calcium 7.7 L (8.5-10.1) mg/dl Phosphorus 3.3 (2.5-4.9) mg/dl Magnesium 1.9 (1.8-2.4) mg/dl Total Bilirubin 0.3 (0.2-1) mg/dl Direct Bilirubin < 0.1 (0-0.2) mg/dl AST 12 L (15-37) U/L ALT 20 (12-78) U/L Alkaline Phosphatase 32 L (45-117) U/L Total Protein 4.6 L (6.4-8.2) gm/dl Albumin 2.5 L (3.4-5.0) gm/dl Stool Occult Bld Scrn Negative (Negative) 11/21/18 Range/Units 00:14 WBC (4.8-10.8) K/uL RBC (4.2-5.4) M/uL Hgb (12.0-16.0) g/dL Hct (37-47) % MCV (80-100) fL MCH (25-34) pg MCHC (32-36) g/dL RDW Std Deviation (36.4-46.3) fL RDW Coeff of Tim (11.5-14.5) % Plt Count (130-400) K/uL MPV (7.4-10.4) fL Immature Gran % (Auto) % Neut % (Auto) % Lymph % (Auto) % [place] % (Auto) % Eos % (Auto) % Baso % (Auto) % Immature Gran # (Auto) (0.00-0.02) K/uL Neut # (Auto) (1.4-6.5) K/uL Lymph # (Auto) (1.2-3.4) K/uL [place] # (Auto) (0.11-0.59) K/uL Eos # (Auto) (0-0.5) K/uL Baso # (Auto) (0-0.2) K/uL Sodium (136-145) mmol/L Potassium (3.5-5.1) mmol/L Chloride (98-107) mmol/L Carbon Dioxide (21-32) mmol/L Anion Gap (3-11) BUN (7-18) mg/dl Creatinine (0.6-1.2) mg/dl Est Cr Clr Drug Dosing ml/min Est GFR ( Amer) Est GFR (Non-Af Amer) BUN/Creatinine Ratio (10-20) Glucose (70-99) mg/dl POC Glucose 118 H (70-99) Calcium (8.5-10.1) mg/dl Phosphorus (2.5-4.9) mg/dl Magnesium (1.8-2.4) mg/dl Total Bilirubin (0.2-1) mg/dl Direct Bilirubin (0-0.2) mg/dl AST (15-37) U/L ALT (12-78) U/L Alkaline Phosphatase (45-117) U/L Total Protein (6.4-8.2) gm/dl Albumin (3.4-5.0) gm/dl Stool Occult Bld Scrn (Negative) PG Care Time/CCT Total # of Minutes Spent Total Time Spent with Patient: Total time spent is greater than 50% in coordination of care (as documented) at patient's floor/unit and/or counseling patient:
[2018-11-21] MEDS: TRIMETHOBENZAMIDE HCL 300 MG PO PRN (14:46)
[2018-11-21] MEDS: HYDROCORTISONE 10 MG TAB PO SCH (14:47)
[2018-11-21] MEDS: HYDROCORTISONE SOD 50 MG in SYRINGE 0 ML IV SCH (19:52)
[2018-11-21] MEDS: CETIRIZINE HCL 10 MG TABLET PO SCH (21:58)
[2018-11-22] MEDS: HYDROCORTISONE SOD 50 MG in SYRINGE 0 ML IV SCH ×2 (04:20→11:19)
[2018-11-22] MEDS: ONDANSETRON HCL 8 MG in DEXTROSE 5% 50 ML IV PRN (04:31)
[2018-11-22 06:27] LABS: Basophils # (auto) 0.01 K/uL (0-0.2); Basophils % (auto) 0.2 %; Hematocrit (blood only) 25.2 % (37-47); Hemoglobin 8.4 g/dL (12.0-16.0); Immature Granulocytes # (auto) 0.01 K/uL (0.00-0.02); Immature Granulocytes % (auto) 0.2 %; Lymphocytes # (auto) 1.11 K/uL (1.2-3.4); Lymphocytes % (auto) 22.1 %; Mean Corpuscular Hgb Conc 33.3 g/dL (32-36); Mean Platelet Volume 10.2 fL (7.4-10.4); Monocytes # (auto) 0.46 K/uL (0.11-0.59); Monocytes % (auto) 9.1 %; Neutrophils # (auto) 3.44 K/uL (1.4-6.5); Neutrophils % (auto) 68.4 %; Platelet Count 228 K/uL (130-400); RDW Coefficient of Variation 12.8 % (11.5-14.5); RDW Standard Deviation 39.6 fL (36.4-46.3); Red Blood Count 2.93 M/uL (4.2-5.4); White Blood Count 5.03 K/uL (4.8-10.8)
[2018-11-22 06:53] LABS: BUN Creatinine Ratio 20.2 (10-20); Blood Urea Nitrogen 10 mg/dl (7-18); Calcium 7.8 mg/dl (8.5-10.1); Carbon Dioxide 30 mmol/L (21-32); Chloride 107 mmol/L (98-107); Creatinine Clr Calc Pharmacy 131.5 ml/min; Est GFR (African American) > 150.0; Est GFR (Non-African American) 131.9; Glucose 98 mg/dl (70-99); Magnesium 2.2 mg/dl (1.8-2.4); Sodium 144 mmol/L (136-145)
[2018-11-22] MEDS: LACTATED RINGER'S 1,000 ML IV SCH (07:38)
[2018-11-22] MEDS ORDERED: IRON SUCROSE 100 MG in 0.9 % SODIUM CHLORIDE 100 ML IV SCH (09:00)
[2018-11-22] MEDS: NORETHINDRONE 5 MG TAB PO SCH (09:15)
[2018-11-22] MEDS: HYDROCORTISONE 10 MG TAB PO SCH (09:16)
[2018-11-22] MEDS: TRIMETHOBENZAMIDE HCL 300 MG PO PRN (09:17)
[2018-11-22] MEDS: LINACLOTIDE PO SCH (09:18)
[2018-11-22] MEDS: PANTOprazole 40 MG TAB PO SCH (11:13)
[2018-11-22 13:07] LABS: Codeine Urine NEGATIVE NG/ML (CUTOFF=50); Hydrocodone Urine NEGATIVE NG/ML (CUTOFF=50); Hydromor Urine 523 NG/ML (CUTOFF=50); Morphine Urine NEGATIVE NG/ML (CUTOFF=50); Norhydrocodone Conf Ur NEGATIVE NG/ML (CUTOFF=50); Noroxycodone Urine NEGATIVE NG/ML (CUTOFF=50); Oxycodone Urine NEGATIVE NG/ML (CUTOFF=50); Oxymorph Urine NEGATIVE NG/ML (CUTOFF=50)
--- NOTE | 2018-11-22 15:25 | Gastroenterology Progress Note ---
Date of Service November 22, 2018 Assessment & Plan (1) Intractable nausea and vomiting: improve overall, tolerating po nutrition--per patient [facility] is working on getting her back on J tube feeds but she did not tolerate them before and is on TPN abd pain improved gut dysmotility---per [facility] GI F/u on DC with her GI at [facility]. Subjective cc f/u n/v, abd pain HPI Pt states n/v and abd pain improved starting last night and tolerating some po today. Physical Exam Constitutional: WD/WN, vitals as above Respiratory: normal respiratory effort, lungs clear to auscultation Cardiovascular: RRR, no murmur, no edema Gastrointestinal (Abdomen): post bs, soft, no guarding nor rebound, Jtube port noted. Psychiatric: A+Ox3, euthymic affect Results & Data Vital Signs (Past 12 Hours) Vital Signs Temp Pulse Resp BP BP Pulse Ox 11/22/18 09:46 50 L 18 107/73 97 11/22/18 09:21 36.6 C 49 L 16 108/72 96 11/22/18 09:13 51 L 16 108/72 97 11/22/18 07:43 36.7 C 58 L 16 109/62 97
[2018-11-22 15:31] LABS: Basophils # (auto) 0.01 K/uL (0-0.2); Basophils % (auto) 0.2 %; Hematocrit (blood only) 26.5 % (37-47); Hemoglobin 8.8 g/dL (12.0-16.0); Immature Granulocytes # (auto) 0.05 K/uL (0.00-0.02); Immature Granulocytes % (auto) 0.8 %; Lymphocytes # (auto) 0.86 K/uL (1.2-3.4); Lymphocytes % (auto) 13.8 %; Mean Corpuscular Hgb Conc 33.2 g/dL (32-36); Mean Corpuscular Volume 85.2 fL (80-100); Mean Platelet Volume 10.3 fL (7.4-10.4); Monocytes # (auto) 0.46 K/uL (0.11-0.59); Monocytes % (auto) 7.4 %; Neutrophils # (auto) 4.84 K/uL (1.4-6.5); Neutrophils % (auto) 77.8 %; Platelet Count 242 K/uL (130-400); RDW Coefficient of Variation 12.6 % (11.5-14.5); RDW Standard Deviation 39.2 fL (36.4-46.3); Red Blood Count 3.11 M/uL (4.2-5.4); White Blood Count 6.22 K/uL (4.8-10.8)
[2018-11-22 15:39] LABS: INR 1.2 (0.9-1.1); Prothrombin Time 11.9 Seconds (9.0-12.0)
[2018-11-22 15:58] LABS: Alanine Aminotransferase 20 U/L (12-78); Albumin Level 2.7 gm/dl (3.4-5.0); Aspartate Aminotransferase 13 U/L (15-37); BUN Creatinine Ratio 19.2 (10-20); Blood Urea Nitrogen 11 mg/dl (7-18); Carbon Dioxide 30 mmol/L (21-32); Chloride 106 mmol/L (98-107); Creatinine Clr Calc Pharmacy 124.3 ml/min; Est GFR (African American) > 150.0; Est GFR (Non-African American) 129.5; Glucose 152 mg/dl (70-99); Magnesium 2.2 mg/dl (1.8-2.4); Potassium 2.8 mmol/L (3.5-5.1); Sodium 143 mmol/L (136-145); Triglycerides 154 mg/dl (0-150)
[2018-11-22 16:01] LABS: Albumin Globulin Ratio 1.1 (0.9-2); Alkaline Phosphatase 30 U/L (45-117); Bilirubin,Total 0.2 mg/dl (0.2-1); Globulin 2.4 gm/dl (2.5-4.0); Total Protein 5.1 gm/dl (6.4-8.2)
--- NOTE | 2018-11-23 08:45 | Discharge Summary ---
Date of Service November 22, 2018 Admission HPI Per Admitting Provider 28 y/o F Hx dysmotility, gastroparesis, sphincter of oddi dysfunction, adrenal insufficiency, endometriosis. Presents to the ER for the second time in as many days for cramping abdominal pain which radiates to her back, nausea and vomiting. A CT of the abdomen was obtained the prior day and was consistent with possible enteritis, although a diagnosis of dysmotility would also make sense. The pt states that she is allergic to all antiemetics aside from Zofran as they make her "jittery". She was provided with narcotics and ativan by the PA in the ER and states that they have not been effective. Initial labs are notable for hypokalemia. The pt's condition is advanced as she is presently requiring TPN for nutrition and has a J tube for drainage. She is under the care of Dr Lantigua at [facility]. She states that she has not previously required hospitalization for this issue. She does not report excessive drainage. PMH: 1) Intestinal dysmotility and gastroparesis 2) Sphincter of oddi dysfunction 3) As a result of item 1 and item 2, she suffers from recurrent episodes of abdominal pain, nausea and vomiting - she is under the care of a specialist at [facility] and is prescribed hyoscyamine PRN for nausea/vomiting. She requires TPN for 18 hours/day, daily enemas and had a jejunal drain. 4) Endometriosis - stage III - tissue found in multiple location in bowel and bladder 5) Adrenal insufficiency Surgical: 1) Cholecystectomy 2) Appendectomy 3) X-lap for endometriosis Social: Does not smoke or drink, presently unemployed, lives with parents Family: Both parents alive and well Admission Exam Per Admitting Provider General: Thin, young F, AAO x 3, no distress ENT: No erythema or exudates, no thrush Eyes: LEWIS, EOMI Head and neck: Normocephalic, atraumatic, No JVD, neck is supple. Chest/heart: Nontender, S1,2, RRR, no murmurs, no gallops Lungs: CTAB, no wheezing or crackles Abdomen: Mild diffuse tenderness, hypoactive Neuro: AAO x 3, speech is clear, no unilateral weakness or loss of sensation, coordination intact Musculoskeletal: No joint inflammation, muscle tenderness, FROM Skin: No acute rashes or ulcers Extremities: No clubbing, cyanosis, edema Principal Diagnosis Intractable nausea and vomiting Discharge Exam Constitutional WD/WN, vitals as above + thin Eyes PERRL, conjunctivae normal, anicteric sclerae ENMT external ear and nose normal, oropharynx normal Neck trachea midline, no thyromegaly Respiratory normal respiratory effort, lungs clear to auscultation Cardiovascular RRR, no murmur, no edema Gastrointestinal (Abdomen) normal bowel sounds, soft, nontender, no hepatosplenomegaly (ostomy and jejunostomy tube in place) Musculoskeletal no cyanosis or clubbing, extremities motor strength 5/5 Skin no rashes, warm and dry Neurologic patellar DTR's 2+ bilat, sensation intact and PERRL, EOMI, accommodation nl, no face palsy, no dysarthria Psychiatric A+Ox3, euthymic affect Lymphatic no cervical or axillary lymphadenopathy Discharge Data Allergies Allergy/AdvReac Type Severity Reaction Status Date / Time amoxicillin Allergy Intermediate RASH Verified 11/24/18 10:28 Bactrim Allergy Intermediate RASH Verified 08/13/17 12:16 cefazolin Allergy Intermediate rash Verified 11/24/18 10:28 Cephalosporins Allergy Intermediate HIVES Verified 11/24/18 10:28 clavulanic acid Allergy Intermediate HIVES Verified 11/24/18 10:28 Penicillins Allergy Intermediate HIVES Verified 11/24/18 10:28 prochlorperazine Allergy Intermediate HIVES Verified 11/24/18 10:28 promethazine Allergy Intermediate hives, Verified 11/24/18 10:28 throat swelling sulfamethoxazole Allergy Intermediate RASH Verified 11/24/18 10:28 sumatriptan Allergy Intermediate RASH Verified 11/24/18 10:28 trimethoprim Allergy Intermediate RASH Verified 11/24/18 10:28 diphenhydramine AdvReac Intermediate Tachycardia, Verified 11/24/18 10:28 Severe Anxiety WITH IV ONLY erythromycin base AdvReac Intermediate GI SYMPTOMS Verified 11/24/18 10:28 MULTIVITAMIN Allergy Unknown Uncoded 11/24/18 10:28 Consultations 11/18/18 11:05 ED Decision to Admit Stat 11/19/18 09:05 Consult Infectious Diseases Routine 11/19/18 10:42 Consult Gastroenterology Routine Hospital Course (1) Nausea and vomiting: This patient is a 28 y/o female with a very complex history including in testinal dysmotility status post placement of J-tube and on chronic TPN, gastroparesis, sphincter of Oddi dysfunction, adrenal insufficiency, and endometriosis. Presents to the ER for the second time in as many days for cramping epigastric abdominal pain which radiates to her back, and intractable nausea and vomiting. A CT of the abdomen was obtained the prior day and was consistent with possible enteritis, although a diagnosis of dysmotility would also make sense. The pt states that she is allergic to all antiemetics aside from Zofran as they make her "jittery". Initial labs were notable for hypokalemia. The pt's condition is advanced as she is presently requiring TPN for nutrition and has a J tube for drainage. She is under the care of Dr Lantigua at [facility]. Finally improved for two days tolerating some oral intake, plans to resume TPN once home, new script provided for home TPN company d/c to home with follow up with her GI doctor at [facility] With fever, elevated monocytes on differential, and N/V, likely had a viral gastroenteritis in the setting of severe intestinal dysmotility at baseline -NGT was placed to LIS on AM of 11/20, but removed later in the day when it made no difference and had no output -was given stress dose steroids resume normal dose of Hydrocortisone on discharge -Continue Zofran as needed -Received one dose of Emend IV on evening of 11/19 -Appreciate GI consultation here -discussed her case with the on-call smoke and flame specialist at [facility] on 11/19- they were in agreement with her plan of care here -Continue to keep bowels moving from below given history of severe intestinal dysmotility-has multiple promotility meds plus daily enema system -decrease IV fluids toLR 100 mLs/hr -Patient declines to have her TPN at this time as says this can worsen her nausea-has now been without TPN since admission -have since dcd Levaquin and Flagyl as no further fevers and was not likely bacterial infection -Continue Accu-Cheks every 6 hours for NPO status and h/o hypoglycemia-glucose is within normal limits -continue ativan as needed for nausea (2) Fever: -Spiked a fever on the evening of admission on 11/18 along with tachycardia, epigastric abd pain. No further fevers since that time. most likely etiology was viral gastroenteritis -No leukocytosis noted and actually became mildly leukopenic on day after the fever -Because she has a port in place as well as a J-tube (neither of which appear infected), and is on chronic TPN, blood and fungal blood cultures were taken and she was started on Vancomycin. -Fungal smear negative, all cultures NGTD -Urinalysis does not show any evidence of infection -CT scan of the abdomen/pelvis on 11/16 had no evidence of abscess or pancreatitis, lipase remains normal, LFTs normal, has had a cholecystectomy previously -Procalcitonin negative which argues against bacterial infection (3) Generalized intestinal dysmotility: Dysmotility/gastroparesis -ongoing since 2016 and was worsened after a procedure for her SMA syndrome Follows with GI specialist at [facility] on a monthly basis Discussed her case with GI specialist on-call at [facility] who agreed with current plan of care Almost back to her baseline now, N/V improved She has daily, frequent loose stools which is normal for her, however her mom reports that it is thought that she frequently has loose stools around impacted stool in the colon -now that she is brianna po, will restart home Linzess, trimethobenzamide, domperidone which she obtains from [facility] -Can continue her daily enema system that her mom brought from home -Follow up at routine GI f/u appt on 12/02/18 at [facility] (4) Epigastric abdominal pain: Likely secondary to her sphincter of Oddi spasm as this feels similar to her in the past-much improved today CT of the abdomen/pelvis did not show any abnormalities on 11/16 other than fluid in the bowel which may be from enterocolitis versus intestinal dysmotility LFTs and lipase continue to be normal and not likely to have pancreatitis She is not having any blood in her vomit or stool to suggest bleeding from a gastric ulcer She does not have any evidence at all of bowel obstruction or perforation on x- ray images here -Continue Dilaudid as needed sparingly to avoid worsening her intestinal dysmotility -restart home po ranitidine and dc IV form IV Lorazepam as needed (5) Asthma: Stable at this time -Continue albuterol as needed (6) Endometriosis: With a history of severe endometriosis with fulguration of endometriosis in the past with laparoscopic surgeries with SCIENTIFIC MANAGER she follows with at [facility] Is known to have endometriosis on her bowels and uterus -Has a Mirena IUD in place and also takes p.o. progestin daily hCG is negative (7) SMAS (superior mesenteric artery syndrome): Status post a strong's procedure in 2016 at [place] which relieved some of her symptoms but then started having significant intestinal dysmotility after that time (8) Hypokalemia: Persists, due to poor po intake -replace with KCl 20meq IV x 1 getting better will be back on TPN on discharge (9) Hypophosphatemia: Resolved after replacement (10) Adrenal insufficiency: Has had a diagnosis of adrenal insufficiency for 2 years or so now and sees endocrinology. Is maintained typically on p.o. hydrocortisone 20 mg daily was not able to tolerate her p.o. hydrocortisone and her blood pressures were quite low on day after admission, now improved Adrenal insufficiency due to acute illness likely compounded her nausea and vomiting -Accu-Cheks every 6 hours to watch for hypoglycemia -continue IV hydrocortisone and taper down to 50mg IV every 8 hours -restart home p.o. hydrocortisone 20mg daily on discharge (11) On total parenteral nutrition (TPN): Due to intestinal dysmotility and gastroparesis with poor p.o. intake at home -Continue TPN here once patient is able to tolerate-states that it makes her more nauseated-on hold for today -plan is to hopefully wean off TPN and increase po intake or J-tube feeds in the future (12) Jejunostomy tube in situ: Placed originally for plans for enteral feeding but now not used for that. Occasionally used for drainage if having nausea, however mom reports she tried draining it since being here at the hospital and nothing came out. No signs of infection of site (13) Sphincter of Oddi spasm: As above Follows with GI Dr. Lantigua at [facility] (14) Gastroparesis: Noted as above (15) Anemia: Hemoglobin typically in the range of 10-11 over the past couple of years, it is and normocytic anemia and is due to a combination of chronic disease, but Fe studies here also showing severely low ferritin at 19 indicative of comorbid Fe-deficiency B12 and Folate are normal, TSH normal Hemoglobin down slightly to 8.3 today and may be hemo-dilutional from copious IV fluids as there is no evidence of bleeding from anywhere Hemoccult stool is negative tolerated a dose of Venofer day of discharge arranged for 5 treatments of Venofer 200mg IV can follow up with PCP (16) DVT prophylaxis: SCDs Total Time Total Time Spent Total Time Spent (In Minutes): 45 minutes Total Time Includes: Examination of the Patient, Discharge Planning, Medication Reconciliation and Other (discussing with family) Discharge Plan Discharge Items Patient Disposition: Home - Self-Care Reason For Visit: NAUSEA, VOMITING Discharge Diagnosis: Dysmotility Vomiting Likely a viral gastroenteritis that is improving Iron deficiency, anemia Condition: Good Discharge Goals: Improve disease control, Improve function and Therapeutic intervention Activity: Resume your previous activity Non-emergency contact: Primary Care Provider and Swing Driver Call non-emergency contact if: you have any medication questions, your symptoms worsen, your pain is not controlled and you have a fever Follow-up/Referrals: Mariah Addison DO [Primary Care Provider] - Diet: Regular Addtl Provider Instructions: Medications: no changes made Dysmotility disorder, superimposed viral gastroenteritis symptoms are improving slowly okay to resume TPN at low rate, GI recommended 20mL/hr and titrate up by 10mL/hr until goal rate reached new script written for TPN at home labs for TPN obtained prior to discharge, these include CMP, CBC, triglycerides, Magnesium, INR recommend calling Dr. Lantigua tomorrow, will send copy of discharge summary Iron deficiency: started on Venofer while here, tolerated well plan for 200mg IV on Thursday, Thursday and Thursday for 5 doses, start on 11/24/18 call [facility] tomorrow to see when to arrive on Thursday FOLLOW UP - Dr. Addison once she is back from vacation, next week - Dr. Lantigua as previously scheduled - Hematology in December as previously scheduled Prescriptions: Continued polyethylene glycol 3350 [Miralax] 17 gram Powder In Packet 17 g PO DAILY PRN (Reason: Constipation) RF: 0 calcium carbonate [Tums] 200 mg calcium (500 mg) Tablet,Chewable 400 mg PO BID PRN (Reason: Acid Reflux) RF: 0 Mirena 20 mcg/24 hours (5 yrs) 52 mg Intrauterine Device 20 mcg INTRAUTERINE UD RF: 0 senna leaf Tea 180 ml PO DAILY RF: 0 cetirizine [Zyrtec] 10 mg Tablet 10 mg PO HS RF: 0 ondansetron HCl [Zofran] 4 mg Tablet 4 mg PO Q6 PRN (Reason: Nausea) RF: 0 pantoprazole [Protonix] 40 mg Tablet,Delayed Release (Dr/Ec) 40 mg PO QAM RF: 0 ranitidine HCl [Zantac] 150 mg Tablet 150 mg PO BID RF: 0 hyoscyamine sulfate 0.125 mg Tablet, Sublingual 0.125 mg SUBLINGUAL Q4 PRN (Reason: Abdominal Discomfort) RF: 0 hydrocortisone 20 mg Tablet 20 mg PO QAM RF: 0 norethindrone acetate 5 mg Tablet 2.5 mg PO QAM RF: 0 albuterol sulfate [ProAir HFA] 90 mcg/actuation Hfa Aerosol Inhaler 2 puff INHALATION QID PRN (Reason: Shortness Of Breath Or Wheezing) RF: 0 dicyclomine 10 mg Capsule 20 mg PO Q6 PRN (Reason: Abdominal Pain) RF: 0 trimethobenzamide 300 mg Capsule 300 mg PO TID PRN (Reason: Nausea) RF: 0 azelastine 0.15 % (205.5 mcg) Almo,Non-Aerosol 1 - 2 spray INTRANASAL BID PRN (Reason: Congestion) RF: 0 Linzess 145 mcg Capsule 145 mcg PO BID RF: 0 Stand-Alone Forms: [facility] Discharge Orders: Discharge Order (Routine); Ordered 11/22/18 Ordered By: Tony Drummond Admission Data Admit Date/Time: 11/19/18 18:30 Attending Provider: Tony Drummond Admit Provider: Charanjit Elizabeth Primary Care Provider: Mariah Addison Other Providers: Charanjit Elizabeth ; Jorge Caro ; Candido Fernández Service: Medical Other Interventions: Discharge Summary Assessment (RN) Last Done: 11/22/18 15:29 DC Date/Time DO NOT enter until pt leaves facility: 11/22/18 15:56
== END 2018-11-22 15:56 | disposition home or self-care (01) | DRG 392 ==
LOC: ED 07:52 → 4E 07:52 → SUATTDRO 14:19 → 4E 15:16 → 2N 21:55 → SUATTDRO 11-19 18:30 → 4E 11-20 12:47
DX: K50.90 Crohn's disease, unspecified, without complications; Z88.1 Allergy status to other antibiotic agents; R11.2 Nausea with vomiting, unspecified; Z90.49 Acquired absence of other specified parts of digestive tract; Z88.2 Allergy status to sulfonamides; K83.8 Other specified diseases of biliary tract; Z88.0 Allergy status to penicillin; Z93.1 Gastrostomy status; R00.0 Tachycardia, unspecified; E87.6 Hypokalemia; R50.9 Fever, unspecified; E27.40 Unspecified adrenocortical insufficiency; R10.13 Epigastric pain; J45.909 Unspecified asthma, uncomplicated; E83.39 Other disorders of phosphorus metabolism; K55.1 Chronic vascular disorders of intestine

== ENCOUNTER 2019-06-24 17:08 | Inpatient (IN) ==
[2019-06-24] MEDS ORDERED: POTASSIUM PHOS 3 MMOL/1 ML INFUSION IV STA ×2 (17:39→21:04)
[2019-06-24] MEDS ORDERED: POT PHOSPHATE MONOBASIC W/ SOD TAB PO STA (17:39)
[2019-06-24] MEDS ORDERED: POTASSIUM PHOSPHATE 21 MMOL in SODIUM CHLORIDE 0.9% 500 ML IV ONE (18:00)
--- NOTE | 2019-06-24 18:54 | XRay Report ---
SINGLE VIEW CHEST CLINICAL HISTORY: Generalized weakness. FINDINGS: An AP, portable, upright chest radiograph is compared to study dated 05/30/2019. The examina tion is degraded by portable technique and patient rotation. A left subclavian central venous infusio n port is unchanged in position. The cardiomediastinal silhouette is unremarkable. The lungs and pleu ral spaces are clear. No pneumothorax is seen. The bony thorax is grossly intact. Scoliosis is noted in the thoracic spine. Cholecystectomy clips are noted in the right upper quadrant. A catheter projec ts over the upper abdomen. IMPRESSION: No active disease in the chest. ACT 112: Negative or not required by law. Electronically signed by: Kirk Burgos M.D. 06/24/2019 6:52 PM
[2019-06-24] MEDS: SODIUM CHLORIDE 0.9% 500 ML IV SCH ×2 (19:05→23:10)
[2019-06-24 19:06] LABS: Basophils # (auto) 0.02 K/uL (0-0.2); Basophils % (auto) 0.3 %; Eosinophils # (auto) 0.04 K/uL (0-0.5); Eosinophils % (auto) 0.6 %; Hematocrit (blood only) 35.3 % (37-47); Hemoglobin 12.3 g/dL (12.0-16.0); Immature Granulocytes # (auto) 0.01 K/uL (0.00-0.02); Immature Granulocytes % (auto) 0.1 %; Lymphocytes % (auto) 26.6 %; Mean Corpuscular Hemoglobin 32.4 pg (25-34); Mean Corpuscular Hgb Conc 34.8 g/dL (32-36); Mean Corpuscular Volume 92.9 fL (80-100); Mean Platelet Volume 10.3 fL (7.4-10.4); Monocytes # (auto) 0.64 K/uL (0.11-0.59); Neutrophils # (auto) 4.52 K/uL (1.4-6.5); Neutrophils % (auto) 63.4 %; Platelet Count 248 K/uL (130-400); RDW Coefficient of Variation 12.2 % (11.5-14.5); RDW Standard Deviation 41.4 fL (36.4-46.3); White Blood Count 7.13 K/uL (4.8-10.8)
[2019-06-24 19:23] LABS: Albumin Level 4.1 gm/dl (3.4-5.0); Calcium 8.5 mg/dl (8.5-10.1); Creatinine Clr Calc Pharmacy 103.3 ml/min; Est GFR (African American) 145.6; Est GFR (Non-African American) 125.6; Magnesium 2.1 mg/dl (1.8-2.4); Potassium 3.7 mmol/L (3.5-5.1)
[2019-06-24 19:49] LABS: Albumin Globulin Ratio 1.4 (0.9-2); Bilirubin,Total 0.2 mg/dl (0.2-1); Phosphorus 1.5 mg/dl (2.5-4.9); Total Protein 7.1 gm/dl (6.4-8.2)
--- NOTE | 2019-06-24 20:04 | Emergency Department Note ---
Entered by Luz Henry acting as a scribe for Vipul Bojorquez MD History of Present Illness General Chief complaint: Abnormal Labs/Diagnostic Testing Stated complaint: PHOSPHORUS LEVEL WAS A 1 Time Seen by Provider: 06/24/19 17:24 Source: patient History of Present Illness Onset (ago): day(s) 1 Severity: similar to prior episodes Pain Consistency: + constant Relieved By: + none Exacerbated By: + other (iron infusions) Associated symptoms: + denies other symptoms (denies abdominal pain) and + other (diarrhea); no nausea/vomiting The patient is a 29 year old female w/ PMHx of SMAS and Crohn's disease who presents to the ED w/ CC of low phosphorus levels that has been declining over the past few weeks. The patient gets iron infusions, and notes that her phosphorus tends to drop when she gets them. The patient complains of diarrhea over the past few weeks. She denies abdominal pain and vomiting. The patient reports a history of several GI issues. She notes that she has been taking 5 tablets for phosphorus each day, but her levels are still dropping. Home Medications Home Medications Medication Instructions Recorded Confirmed Type Linzess 145 mcg PO BID 03/07/18 06/24/19 History albuterol sulfate [ProAir HFA] 2 puff INHALATION QID PRN 03/07/18 06/24/19 History azelastine 1 - 2 spray INTRANASAL BID PRN 03/07/18 06/24/19 History cetirizine [Zyrtec] 10 mg PO HS 03/07/18 06/24/19 History dicyclomine 20 mg PO Q6 PRN 03/07/18 06/24/19 History hydrocortisone 20 mg PO QAM 03/07/18 06/24/19 History hyoscyamine sulfate 0.125 mg SUBLINGUAL Q4 PRN 03/07/18 06/24/19 History norethindrone acetate 2.5 mg PO QAM 03/07/18 06/24/19 History ondansetron HCl [Zofran] 4 mg PO Q6 PRN 03/07/18 06/24/19 History pantoprazole [Protonix] 40 mg PO QAM 03/07/18 06/24/19 History trimethobenzamide 300 mg PO TID PRN 03/07/18 06/24/19 History calcium carbonate [Tums] 400 mg PO BID PRN 08/09/18 06/24/19 History polyethylene glycol 3350 [Miralax] 17 g PO DAILY PRN 08/09/18 06/24/19 History Mirena 20 mcg INTRAUTERINE UD 11/16/18 06/24/19 History senna leaf 180 ml PO DAILY PRN 11/19/18 06/24/19 History Motillium 1 tab PO TID 03/13/19 06/24/19 History famotidine 20 mg tablet 20 mg PO BID tab 05/26/19 06/24/19 History Allergies Allergy/AdvReac Type Severity Reaction Status Date / Time amoxicillin Allergy Intermediate RASH Verified 06/24/19 17:54 Bactrim Allergy Intermediate RASH Verified 08/13/17 12:16 cefazolin Allergy Intermediate rash Verified 06/24/19 17:54 Cephalosporins Allergy Intermediate HIVES Verified 06/24/19 17:54 clavulanic acid Allergy Intermediate HIVES Verified 06/24/19 17:54 Penicillins Allergy Intermediate HIVES Verified 06/24/19 17:54 prochlorperazine Allergy Intermediate HIVES Verified 06/24/19 17:54 promethazine Allergy Intermediate hives, Verified 06/24/19 17:54 throat swelling sulfamethoxazole Allergy Intermediate RASH Verified 06/24/19 17:54 sumatriptan Allergy Intermediate RASH Verified 06/24/19 17:54 trimethoprim Allergy Intermediate RASH Verified 06/20/19 13:11 diphenhydramine AdvReac Intermediate Tachycardia, Verified 06/20/19 13:11 Severe Anxiety WITH IV ONLY erythromycin base AdvReac Intermediate GI SYMPTOMS Verified 06/20/19 13:11 citalopram [From Celexa] AdvReac Unknown Verified 06/20/19 13:11 MULTIVITAMIN Allergy Unknown Uncoded 06/20/19 13:11 Past Med/Surg History Medical History Appendicitis, acute (Acute 11/07/13) Asthma (Chronic) Chronic migraine (Chronic) Crohn's disease (Chronic) Endometriosis (Resolved) Hemorrhagic cystitis (Acute) Hypotension 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 of Oddi dysfunction Uses feeding tube UTI (urinary tract infection) (Acute) Surgical History H/O adenoidectomy (Resolved) H/O laparoscopy (Resolved) H/O lumpectomy (Resolved) History of appendectomy History of vascular access device Hx of tonsillectomy (Resolved) S/P cholecystectomy S/P wrist surgery (Resolved) Family History Other No significant family history Social History Preferred Language: Polish Communication Ability: Effective 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 and A total of 10 systems reviewed and were otherwise negative Physical Exam Vital Signs Vital Signs - 24 hr 06/24/19 17:19 06/24/19 19:00 06/24/19 19:08 Temperature 36.8 C Temperature Source Oral Pulse Rate 101 H Pulse Rate [Apical] 88 Pulse Rhythm Regular Pulse Rhythm [Apical] Regular Pulse Strength Normal Respiratory Rate 16 21 Respiratory Effort / Characteristics Non-Labored Spontaneous Non-Labored Spontaneous Respiratory Depth Normal Normal Respiratory Pattern Regular Regular Blood Pressure 109/70 Blood Pressure [Right Arm] 101/69 Blood Pressure Mean 83 Blood Pressure Mean [Right Arm] 79 Blood Pressure Position Sitting Blood Pressure Position [Right Arm] Lying Pulse Oximetry 100 97 97 Oxygen Delivery Method Room Air Room Air Room Air Sepsis Recent Fever Within 48 Hours No Sepsis New/Unexplained Change in Mental Status No Sepsis Action Taken by Nursing No Action Required GENERAL: Thin in appearance, NAD, non-toxic. EYE EXAM: Normal conjunctiva. PERRL, no anisocoria and EOM's grossly intact w/o pain. OROPHARYNX: Moist mucous membranes. Grossly normal dentition. NECK: Supple, no nuchal rigidity, no adenopathy, non-tender. No signs of meningismus. LUNGS: Clear to auscultation. Normal chest wall mechanics. HEART: NSR, no MRG. ABDOMEN: Feeding tube in place right of the mid abdomen. Abdomen soft, non- tender, normo-active bowel sounds, no masses, no rebound or guarding. BACK: No CVA TTP. SKIN: No rashes and no bruising. UPPER EXTREMITIES: Upper extremities are grossly normal. LOWER EXTREMITIES: No pitting edema. No calf pain. NEURO EXAM: A&O x3, cranial nerves II-XII grossly intact, normal speech, moves all 4 extremities on command w/o issue. Course Course 1729: Past medical records reviewed. The patient was evaluated in room C11B. A complete history and physical exam was performed. Continuous Cardiac Monitoring: An order was placed for continuous cardiac monitoring. The monitor shows a rate of 82 with normal sinus rhythm. 1843: I spoke to Dr. Romero, who agreed to take over the care of the patient. The patient understands and is agreeable to the treatment plan. She will stay for further evaluation. 1907: I updated the patient on results and discussed staying in the hospital for treatment. The patient was agreeable to this, and will stay in the hospital. Administered Medications Sodium Chloride (Nss) 500 mls @ 125 mls/hr IV .Q4H EMERALD Stop: 07/24/19 17:44 Last Admin: 06/24/19 19:05 Dose: 125 mls/hr Documented by: [id number] Potassium Phosphate 21 mmol/ (Sodium Chloride) 507 mls @ 144.857 mls/hr IV NOW ONE Stop: 06/24/19 21:29 Last Admin: 06/24/19 18:47 Dose: 144.9 mls/hr Documented by: [id number] Discontinued Medications Potassium Phosphate (Phospha 250 Neutral 155-852-130 Mg) 2 tab PO NOW STA Stop: 06/24/19 17:40 Last Admin: 06/24/19 18:50 Dose: 2 tab Documented by: [id number] Potassium Phosphate (Potassium Phosphate Replace) 21 mmol IV NOW STA Stop: 06/24/19 17:40 Last Admin: 06/24/19 19:05 Dose: Not Given Documented by: [id number] Medical Decision Making Differential Diagnosis Differential includes acute coronary syndrome, myocardial infarction, CVA, TIA, anemia, infection, pneumonia, UTI, pyelonephritis, poor nutrition, dehydration, electrolyte disturbance,hypoglycemia, as well as others were considered. Medical Records Attestation: I reviewed the patient's medical records. The patient had a phosphorus of 1 today. It was 1.3 on 06/20, and 2 on 06/16. Home Medications Current Medication List: was personally reviewed by me Laboratory Data Attestation: I reviewed the patient's lab results. Result diagrams: 06/24/19 18:48 06/24/19 18:48 Lab Results 06/24/19 06/24/19 Range/Units 18:48 18:48 WBC 7.13 (4.8-10.8) K/uL RBC 3.80 L (4.2-5.4) M/uL Hgb 12.3 (12.0-16.0) g/dL Hct 35.3 L (37-47) % MCV 92.9 (80-100) fL MCH 32.4 (25-34) pg MCHC 34.8 (32-36) g/dL RDW Std Deviation 41.4 (36.4-46.3) fL RDW Coeff of Tim 12.2 (11.5-14.5) % Plt Count 248 (130-400) K/uL MPV 10.3 (7.4-10.4) fL Immature Gran % (Auto) 0.1 % Neut % (Auto) 63.4 % Lymph % (Auto) 26.6 % [place] % (Auto) 9.0 % Eos % (Auto) 0.6 % Baso % (Auto) 0.3 % Immature Gran # (Auto) 0.01 (0.00-0.02) K/uL Neut # (Auto) 4.52 (1.4-6.5) K/uL Lymph # (Auto) 1.90 (1.2-3.4) K/uL [place] # (Auto) 0.64 H (0.11-0.59) K/uL Eos # (Auto) 0.04 (0-0.5) K/uL Baso # (Auto) 0.02 (0-0.2) K/uL Sodium 141 (136-145) mmol/L Potassium 3.7 (3.5-5.1) mmol/L Chloride 111 H (98-107) mmol/L Carbon Dioxide 24 (21-32) mmol/L Anion Gap 6.0 (3-11) BUN 9 (7-18) mg/dl Creatinine 0.59 L (0.6-1.2) mg/dl Est Cr Clr Drug Dosing 103.3 ml/min Est GFR ( Amer) 145.6 Est GFR (Non-Af Amer) 125.6 BUN/Creatinine Ratio 15.0 (10-20) Glucose 85 (70-99) mg/dl Calcium 8.5 (8.5-10.1) mg/dl Phosphorus 1.5 L* (2.5-4.9) mg/dl Magnesium 2.1 (1.8-2.4) mg/dl Total Bilirubin 0.2 (0.2-1) mg/dl AST 13 L (15-37) U/L ALT 18 (12-78) U/L Alkaline Phosphatase 49 (45-117) U/L Total Protein 7.1 (6.4-8.2) gm/dl Albumin 4.1 (3.4-5.0) gm/dl Globulin 3.0 (2.5-4.0) gm/dl Albumin/Globulin Ratio 1.4 (0.9-2) Imaging Data Radiologist's Impression: Radiology results as stated below per my review and the radiologist's interpretation: SINGLE VIEW CHEST CLINICAL HISTORY: Generalized weakness. FINDINGS: An AP, portable, upright chest radiograph is compared to study dated 05/30/2019. The examination is degraded by portable technique and patient rotation. A left subclavian central venous infusion port is unchanged in position. The cardiomediastinal silhouette is unremarkable. The lungs and pleural spaces are clear. No pneumothorax is seen. The bony thorax is grossly intact. Scoliosis is noted in the thoracic spine. Cholecystectomy clips are noted in the right upper quadrant. A catheter projects over the upper abdomen. IMPRESSION: No active disease in the chest. ACT 112: Negative or not required by law. Electronically signed by: Kirk Burgos M.D. 06/24/2019 6:52 PM ECG Data Attestation: I personally reviewed and interpreted this ECG as follows: Indication: + weakness Rate (beats per minute): 82 Rhythm: + normal sinus ECG Intervals/blocks: + Normal QRS, + Normal CO and + Normal QT-c ECG [place]: + Normal ECG ST segments: no ST depression and no ST elevation Blood Pressure Blood Pressure Findings: Normal blood pressure Blood Pressure Disposition: did not require urgent referral MDM Narrative The patient is a 29 year old female w/ PMHx of SMAS and Crohn's disease who presents to the ED w/ CC of low phosphorus levels that has been declining over the past few weeks. Patient was seen and evaluated the bedside. Patient was referred to the emergency department due to a low phosphorus. The patient does have a downtrending phosphorus over the last week or so. The patient does have malabsorption issues has had some worsening diarrhea does receive TPN. Tube fe eds as well. Patient currently takes supplements but this has not improved her phosphorus level. The patient is fairly thin in appearance. The patient did have repeat blood work and the patient was ordered by mouth and IV replacement of phosphorus. Due to the prolonged time course which were Pleatman would take along with rechecking I did speak the on-call hospitalist agreed to further evaluate treat the patient. Patient was subsequently admitted to the medicine service. Impression & Plan Hypophosphatemia, Diarrhea, Malabsorption Discharge Plan Visit Data Chief Complaint: Abnormal Labs/Diagnostic Testing Stated Complaint: PHOSPHORUS LEVEL WAS A 1 ED Provider: Vipul Bojorquez Discharge Problem: Hypophosphatemia, Diarrhea, Malabsorption Forms Stand Alone Forms: [facility] [employer] Prescriptions Prescriptions: No Action famotidine [Pepcid] 20 mg tablet 20 mg PO BID RF: 0 polyethylene glycol 3350 [Miralax] 17 gram Powder In Packet 17 g PO DAILY PRN (Reason: Constipation) RF: 0 calcium carbonate [Tums] 200 mg calcium (500 mg) Tablet,Chewable 400 mg PO BID PRN (Reason: Acid Reflux) RF: 0 Mirena 20 mcg/24 hours (5 yrs) 52 mg Intrauterine Device 20 mcg INTRAUTERINE UD RF: 0 senna leaf Tea 180 ml PO DAILY PRN (Reason: Constipation) RF: 0 cetirizine [Zyrtec] 10 mg Tablet 10 mg PO HS RF: 0 ondansetron HCl [Zofran] 4 mg Tablet 4 mg PO Q6 PRN (Reason: Nausea) RF: 0 pantoprazole [Protonix] 40 mg Tablet,Delayed Release (Dr/Ec) 40 mg PO QAM RF: 0 hyoscyamine sulfate 0.125 mg Tablet, Sublingual 0.125 mg SUBLINGUAL Q4 PRN (Reason: Abdominal Discomfort) RF: 0 hydrocortisone 20 mg Tablet 20 mg PO QAM RF: 0 norethindrone acetate 5 mg Tablet 2.5 mg PO QAM RF: 0 albuterol sulfate [ProAir HFA] 90 mcg/actuation Hfa Aerosol Inhaler 2 puff INHALATION QID PRN (Reason: Shortness Of Breath Or Wheezing) RF: 0 dicyclomine 10 mg Capsule 20 mg PO Q6 PRN (Reason: Abdominal Pain) RF: 0 trimethobenzamide 300 mg Capsule 300 mg PO TID PRN (Reason: Nausea) RF: 0 azelastine 0.15 % (205.5 mcg) [place],Non-Aerosol 1 - 2 spray INTRANASAL BID PRN (Reason: Congestion) RF: 0 Linzess 145 mcg Capsule 145 mcg PO BID RF: 0 Motillium 1 tab PO TID RF: 0 Discharge Problem: Diarrhea Qualifiers: Diarrhea type: due to malabsorption Qualified Code(s): K90.9 - Intestinal malabsorption, unspecified Malabsorption Qualifiers: Intestinal malabsorption type: unspecified Qualified Code(s): K90.9 - Intestinal malabsorption, unspecified The scribe's documentation has been prepared under my direction and personally reviewed by me in its entirety. I confirm that the note above accurately reflects all work, treatment, procedures, and medical decision making performed by me.
[2019-06-24] MEDS ORDERED: POTASSIUM PHOSPHATE 30 MMOL in SODIUM CHLORIDE 0.9% 500 ML IV STA (21:09)
[2019-06-24] MEDS ORDERED: CALCIUM CARBONATE 500 MG CHEWABLE TAB PO PRN (21:40)
[2019-06-24] MEDS ORDERED: [UNRECOGNIZED DRUG - OTHER] PO SCH (21:40)
[2019-06-24] MEDS ORDERED: POLYETHYLENE (MIRALAX) 17 GM PACK PO PRN (21:40)
[2019-06-24] MEDS ORDERED: [UNRECOGNIZED DRUG - OTHER] PO PRN (21:40)
[2019-06-24] MEDS ORDERED: ACETAMINOPHEN 325 MG TAB PO PRN (21:40)
[2019-06-24] MEDS ORDERED: ALBUTEROL HFA 8 GM INHALER INH PRN (21:45)
[2019-06-24] MEDS ORDERED: ONDANSETRON 4 MG OD TAB PO PRN (21:49)
[2019-06-24] MEDS ORDERED: LEVONORGESTREL (MIRENA) IUD PV SCH (22:00)
[2019-06-24] MEDS ORDERED: AZELASTINE PRN (22:24)
[2019-06-24] MEDS ORDERED: TRIMETHOBENZAMIDE HCL 300 MG PO PRN (22:30)
[2019-06-24] MEDS: CETIRIZINE HCL 10 MG TABLET PO SCH (23:10)
[2019-06-24] MEDS: FAMOTIDINE 20 MG TAB PO SCH (23:10)
[2019-06-24] MEDS: HYOSCYAMINE SULFATE 0.125 MG TAB SL PRN (23:12)
[2019-06-24] MEDS: DICYCLOMINE HCL 10 MG CAP PO PRN (23:41)
[2019-06-25] MEDS ORDERED: HEPARIN 100 UNIT/ML 5ML FLUSH FLUSH PRN (00:26)
--- NOTE | 2019-06-25 02:25 | History & Physical Report ---
Date of Service June 24, 2019 Assessment & Plan (1) Hypophosphatemia: Patient has been having worsening diarrhea over the past few weeks, and had persistently low phosphorus levels ranging anywhere from 1.0-2.0 despite aggressive oral supplementation. Patient was started on 21 mmol of K-Phos IV in the ED, and will add 30 mmol IV after that, will recheck phosphorus levels in the a.m. along with chemistry and CBC with differential. We will check vitamin D levels and ionized parathyroid hormone levels, as for of her symptoms may be secondary to secondary hyperparathyroidism and/or vitamin D deficiency contributing to malabsorption, that is been occurring due to her underlying issue with Crohn's disease and GI dysmotility. We will continue all her usual medications. Present on Admission?: Yes (2) Diarrhea: Has actually been improving somewhat recently, with no suggestion of infection. She has had extensive studies, which will not be repeated today. Present on Admission?: Yes (3) Malabsorption: Will review records as the patient has been on pancreatic enzymes in the past. Present on Admission?: Yes (4) Gastroparesis: Patient has complex GI issues, for which he follows at [place]-GI dysmotility, Crohn's disease, SMA syndrome, sphincter of Oddi spasm. He has required jejunostomy tube and intermittent TPN nutrition. (5) Generalized intestinal dysmotility: See above Present on Admission?: Yes (6) Jejunostomy tube in situ: See above Present on Admission?: Yes (7) Crohn's disease: See above Present on Admission?: Yes (8) SMAS (superior mesenteric artery syndrome): See above Present on Admission?: Yes (9) On total parenteral nutrition (TPN): See above Present on Admission?: Yes (10) Sphincter of Oddi spasm: See above Present on Admission?: Yes (11) Adrenal insufficiency: Continue current dosing of hydrocortisone 20 mg every morning and will hold on stress dose steroids at this time, but would have low threshold for starting hydrocortisone IV. Present on Admission?: Yes History of Present Illness Chief Complaint: the patient presents to the emergency department after being referred by her outpatient physician due to persistently and progressively lower phosphorus levels, with inability to elevate them with oral supplementation, and with worsening fatigue Primary Care Provider: Mariah Addison, DO The patient is a 29-year-old female with a past medical history including anemia, gastroparesis, sphincter of Oddi spasm, jejunostomy tube in situ, TPN, adrenal insufficiency, hypophosphatemia, intestinal dysmotility, asthma, SMA syndrome, Crohn's disease and hemorrhagic cystitis. She presents to the emergency department with persistently low phosphorus, and inability to raise levels with oral supplementation. Allergies Allergy/AdvReac Type Severity Reaction Status Date / Time amoxicillin Allergy Intermediate RASH Verified 06/24/19 17:54 Bactrim Allergy Intermediate RASH Verified 08/13/17 12:16 cefazolin Allergy Intermediate rash Verified 06/24/19 17:54 Cephalosporins Allergy Intermediate HIVES Verified 06/24/19 17:54 clavulanic acid Allergy Intermediate HIVES Verified 06/24/19 17:54 Penicillins Allergy Intermediate HIVES Verified 06/24/19 17:54 prochlorperazine Allergy Intermediate HIVES Verified 06/24/19 17:54 promethazine Allergy Intermediate hives, Verified 06/24/19 17:54 throat swelling sulfamethoxazole Allergy Intermediate RASH Verified 06/24/19 17:54 sumatriptan Allergy Intermediate RASH Verified 06/24/19 17:54 trimethoprim Allergy Intermediate RASH Verified 06/20/19 13:11 diphenhydramine AdvReac Intermediate Tachycardia, Verified 06/20/19 13:11 Severe Anxiety WITH IV ONLY erythromycin base AdvReac Intermediate GI SYMPTOMS Verified 06/20/19 13:11 citalopram [From Celexa] AdvReac Unknown Verified 06/20/19 13:11 MULTIVITAMIN Allergy Unknown Uncoded 06/20/19 13:11 Home Medications Home Medications Medication Instructions Recorded Confirmed Type Linzess 145 mcg PO BID 03/07/18 06/24/19 History albuterol sulfate [ProAir HFA] 2 puff INHALATION QID PRN 03/07/18 06/24/19 History azelastine 1 - 2 spray INTRANASAL BID PRN 03/07/18 06/24/19 History cetirizine [Zyrtec] 10 mg PO HS 03/07/18 06/24/19 History dicyclomine 20 mg PO Q6 PRN 03/07/18 06/24/19 History hydrocortisone 20 mg PO QAM 03/07/18 06/24/19 History hyoscyamine sulfate 0.125 mg SUBLINGUAL Q4 PRN 03/07/18 06/24/19 History norethindrone acetate 2.5 mg PO QAM 03/07/18 06/24/19 History ondansetron HCl [Zofran] 4 mg PO Q6 PRN 03/07/18 06/24/19 History pantoprazole [Protonix] 40 mg PO QAM 03/07/18 06/24/19 History trimethobenzamide 300 mg PO TID PRN 03/07/18 06/24/19 History calcium carbonate [Tums] 400 mg PO BID PRN 08/09/18 06/24/19 History polyethylene glycol 3350 [Miralax] 17 g PO DAILY PRN 08/09/18 06/24/19 History Mirena 20 mcg INTRAUTERINE UD 11/16/18 06/24/19 History senna leaf 180 ml PO DAILY PRN 11/19/18 06/24/19 History Motillium 1 tab PO TID 03/13/19 06/24/19 History famotidine 20 mg tablet 20 mg PO BID tab 05/26/19 06/24/19 History Past Med/Surg History Medical History Appendicitis, acute (Acute 11/07/13) Asthma (Chronic) Chronic migraine (Chronic) Crohn's disease (Chronic) Endometriosis (Resolved) Hemorrhagic cystitis (Acute) Hypotension 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 of Oddi dysfunction Uses feeding tube UTI (urinary tract infection) (Acute) Surgical History H/O adenoidectomy (Resolved) H/O laparoscopy (Resolved) H/O lumpectomy (Resolved) History of appendectomy History of vascular access device Hx of tonsillectomy (Resolved) S/P cholecystectomy S/P wrist surgery (Resolved) Family History Other No significant family history Social History Preferred Language: Cambodian Communication Ability: Effective Travel Assistant Required: No Beliefs That Will Affect Care: None marital status: single Current Living Situation: Family current occupational status: unemployed Feels Safe at Home: Yes Safety Concerns: Feels Safe At This Time Smoking Status: Never smoker Hx Alcohol Use: No Hx Substance Use: No Review of Systems Review of Systems: The patient denies chest pain, palpitations, shortness of breath, dyspnea on exertion, cough, lower extremity swelling, sore throat, fevers, chills, sweats, blood in urine or stool, dysuria, urinary frequency or urgency, lightheadedness, dizziness, headache, memory loss, loss of consciousness, rash, abnormal bruising or bleeding, imbalance, focal weakness, numbness or tingling in arms or legs, generalized arthralgias or myalgias, back or neck pain, or night sweats. The review of systems is otherwise negative other than for that already noted above, and at least 10 systems have been reviewed. Physical Exam Physical Exam: The patient is awake, alert and oriented 3, well developed and well nourished, normocephalic and atraumatic, lying in bed and in no acute distress. HEENT--PERRL, EOMI, mucous membranes and oropharynx mildly dry. Neck--supple. No JVD. No bruits. Thyroid normal, trachea midline, no adenopathy. Heart--normal S1 and S2. No murmurs, rubs or gallops. Lungs--clear bilaterally, no respiratory distress, no accessory muscle use. Abdomen--normal bowel sounds and soft. Nontender. Nondistended, no hernias or masses, no organomegaly. Extremities--no cyanosis or clubbing. No edema. Dermatologic--normal skin turgor, normal color, no abnormal lymph nodes, no rash. Neurologic--cranial nerves II through XII grossly intact. Rheumatologic--normal range of motion. Psychiatric--normal affect. Results & Data Vital Signs (Past 12 Hours) Vital Signs Temp Pulse Pulse Resp BP BP Pulse Ox 06/24/19 22:00 87 06/24/19 21:27 98.2 F 93 H 16 113/77 100 06/24/19 20:30 92 H 12 109/67 100 06/24/19 20:00 98 H 14 106/77 99 06/24/19 19:30 92 H 16 102/68 99 06/24/19 19:11 86 20 101/69 100 06/24/19 19:08 88 21 101/69 97 06/24/19 19:00 97 06/24/19 17:19 98.2 F 101 H 16 109/70 100 Laboratory Results Laboratory Results WBC 7.13 K/uL (4.8-10.8) 06/24/19 18:48 RBC 3.80 M/uL (4.2-5.4) L 06/24/19 18:48 Hgb 12.3 g/dL (12.0-16.0) 06/24/19 18:48 Hct 35.3 % (37-47) L 06/24/19 18:48 MCV 92.9 fL (80-100) 06/24/19 18:48 MCH 32.4 pg (25-34) 06/24/19 18:48 MCHC 34.8 g/dL (32-36) 06/24/19 18:48 RDW Std Deviation 41.4 fL (36.4-46.3) 06/24/19 18:48 RDW Coeff of Tim 12.2 % (11.5-14.5) 06/24/19 18:48 Plt Count 248 K/uL (130-400) 06/24/19 18:48 MPV 10.3 fL (7.4-10.4) 06/24/19 18:48 Immature Gran % (Auto) 0.1 % 06/24/19 18:48 Neut % (Auto) 63.4 % 06/24/19 18:48 Lymph % (Auto) 26.6 % 06/24/19 18:48 [place] % (Auto) 9.0 % 06/24/19 18:48 Eos % (Auto) 0.6 % 06/24/19 18:48 Baso % (Auto) 0.3 % 06/24/19 18:48 Immature Gran # (Auto) 0.01 K/uL (0.00-0.02) 06/24/19 18:48 Neut # (Auto) 4.52 K/uL (1.4-6.5) 06/24/19 18:48 Lymph # (Auto) 1.90 K/uL (1.2-3.4) 06/24/19 18:48 [place] # (Auto) 0.64 K/uL (0.11-0.59) H 06/24/19 18:48 Eos # (Auto) 0.04 K/uL (0-0.5) 06/24/19 18:48 Baso # (Auto) 0.02 K/uL (0-0.2) 06/24/19 18:48 Sodium 141 mmol/L (136-145) 06/24/19 18:48 Potassium 3.7 mmol/L (3.5-5.1) 06/24/19 18:48 Chloride 111 mmol/L (98-107) H 06/24/19 18:48 Carbon Dioxide 24 mmol/L (21-32) 06/24/19 18:48 Anion Gap 6.0 (3-11) 06/24/19 18:48 BUN 9 mg/dl (7-18) 06/24/19 18:48 Creatinine 0.59 mg/dl (0.6-1.2) L 06/24/19 18:48 Est Cr Clr Drug Dosing 103.3 ml/min 06/24/19 18:48 Est GFR ( Amer) 145.6 06/24/19 18:48 Est GFR (Non-Af Amer) 125.6 06/24/19 18:48 BUN/Creatinine Ratio 15.0 (10-20) 06/24/19 18:48 Glucose 85 mg/dl (70-99) 06/24/19 18:48 Calcium 8.5 mg/dl (8.5-10.1) 06/24/19 18:48 Phosphorus 1.5 mg/dl (2.5-4.9) L* 06/24/19 18:48 Magnesium 2.1 mg/dl (1.8-2.4) 06/24/19 18:48 Total Bilirubin 0.2 mg/dl (0.2-1) 06/24/19 18:48 AST 13 U/L (15-37) L 06/24/19 18:48 ALT 18 U/L (12-78) 06/24/19 18:48 Alkaline Phosphatase 49 U/L (45-117) 06/24/19 18:48 Total Protein 7.1 gm/dl (6.4-8.2) 06/24/19 18:48 Albumin 4.1 gm/dl (3.4-5.0) 06/24/19 18:48 Globulin 3.0 gm/dl (2.5-4.0) 06/24/19 18:48 Albumin/Globulin Ratio 1.4 (0.9-2) 06/24/19 18:48 Diagnostic Findings [place], [place] [phone] XRay Report Patient: CHRIS TALBOT Date: 06/24/19 MR#: [id number] Acct ID:[id number]: Date: [address] Zip: [place] [address] Age: 29Location: ED Sex: F Room/Bed: Att Phy:Diagnosis: PHOSPHORUS LEVEL WAS A 1 Veronica Phy: Mariah AddisonDRaheemService Date: 06/24/19 Fam Phy:Interpreting Phy: Kirk Burgos MD Admit Phy: Ordering Phy: Vipul Bojorquez M.D. cc: ~ SINGLE VIEW CHEST CLINICAL HISTORY: Generalized weakness. FINDINGS: An AP, portable, upright chest radiograph is compared to study dated 05/30/2019. The examination is degraded by portable technique and patient rotation. A left subclavian central venous infusion port is unchanged in position. The cardiomediastinal silhouette is unremarkable. The lungs and pleural spaces are clear. No pneumothorax is seen. The bony thorax is grossly intact. Scoliosis is noted in the thoracic spine. Cholecystectomy clips are noted in the right upper quadrant. A catheter projects over the upper abdomen. IMPRESSION: No active disease in the chest. ACT 112: Negative or not required by law. Electronically signed by: Kirk Burgos M.D. 06/24/2019 6:52 PM Code Status & VTE Plan Code Status Full code VTE Prophylaxis Plan VTE Prophylaxis will be ordered: Yes PG Care Time/CCT Total # of Minutes Spent Total Time Spent with Patient: Total time spent is greater than 50% in coordination of care (as documented) at patient's floor/unit and/or counseling patient: Coding Level of Care Code 24999 Initial Inpt Care Lvl 3 Diagnoses Hypophosphatemia E83.39 Diarrhea K90.9; R19.7 Diarrhea type: due to malabsorption Malabsorption K90.9 Intestinal malabsorption type: unspecified Gastroparesis K31.84 Generalized intestinal dysmotility K59.8 Jejunostomy tube in situ Z93.4 Crohn's disease K50.90 SMAS (superior mesenteric artery syndrome) K55.1 On total parenteral nutrition (TPN) Z78.9 Sphincter of Oddi spasm K83.4 Adrenal insufficiency E27.40 (1) Diarrhea Diarrhea type: due to malabsorption Qualified Code(s): K90.9 - Intestinal malabsorption, unspecified; R19.7 - Diarrhea, unspecified (2) Malabsorption Intestinal malabsorption type: unspecified Qualified Code(s): K90.9 - Intestinal malabsorption, unspecified
[2019-06-25] MEDS: SODIUM CHLORIDE 0.9% 500 ML IV SCH ×3 (03:08→16:18)
[2019-06-25 06:23] LABS: Appearance Urine Clear (Clear); Bilirubin Urine Negative (Negative); Blood Urine Negative (Negative); Color Urine Yellow; Glucose Urine UA Negative (Negative); Ketones Urine Negative (Negative); Leukocyte Esterase Urine Negative (Negative); Nitrite Urine Negative (Negative); Protein Urine Negative (Negative); Specific Gravity Urine 1.014 (1.000-1.030); Urobilinogen Urine Negative (Negative); pH Urine 5.5 (4.5-7.5)
[2019-06-25] MEDS ORDERED: POTASSIUM PHOS 3 MMOL/1 ML INFUSION IV STA (08:20)
[2019-06-25] MEDS: ONDANSETRON INJ 2 MG/ML 2 ML VIAL IV PRN ×2 (08:24→20:15)
[2019-06-25] MEDS: HYDROCORTISONE 10 MG TAB PO SCH (08:28)
[2019-06-25] MEDS: NORETHINDRONE 5 MG TAB PO SCH (08:28)
[2019-06-25] MEDS: PANTOprazole 40 MG TAB PO SCH (08:28)
[2019-06-25] MEDS: FAMOTIDINE 20 MG TAB PO SCH ×2 (08:28→20:13)
[2019-06-25] MEDS ORDERED: POTASSIUM PHOSPHATE 30 MMOL in SODIUM CHLORIDE 0.9% 500 ML IV ONE (08:30)
[2019-06-25] MEDS: LINACLOTIDE 145 MCG PO SCH ×2 (08:30→20:13)
[2019-06-25] MEDS: DOMPERIDONE PO SCH ×3 (08:31→20:13)
[2019-06-25] MEDS: [UNRECOGNIZED DRUG - OTHER] PO SCH ×3 (08:31→20:13)
[2019-06-25 09:53] LABS: Basophils # (auto) 0.02 K/uL (0-0.2); Basophils % (auto) 0.4 %; Eosinophils # (auto) 0.11 K/uL (0-0.5); Eosinophils % (auto) 2.1 %; Hematocrit (blood only) 31.2 % (37-47); Hemoglobin 10.3 g/dL (12.0-16.0); Immature Granulocytes # (auto) 0.01 K/uL (0.00-0.02); Immature Granulocytes % (auto) 0.2 %; Lymphocytes # (auto) 1.88 K/uL (1.2-3.4); Lymphocytes % (auto) 35.1 %; Mean Corpuscular Hemoglobin 31.6 pg (25-34); Mean Corpuscular Volume 95.7 fL (80-100); Mean Platelet Volume 10.3 fL (7.4-10.4); Monocytes # (auto) 0.55 K/uL (0.11-0.59); Monocytes % (auto) 10.3 %; Neutrophils # (auto) 2.78 K/uL (1.4-6.5); Neutrophils % (auto) 51.9 %; Platelet Count 197 K/uL (130-400); RDW Coefficient of Variation 12.5 % (11.5-14.5); RDW Standard Deviation 43.8 fL (36.4-46.3); Red Blood Count 3.26 M/uL (4.2-5.4); White Blood Count 5.35 K/uL (4.8-10.8)
[2019-06-25 10:18] LABS: Albumin Level 3.1 gm/dl (3.4-5.0); BUN Creatinine Ratio 8.1 (10-20); Calcium 7.5 mg/dl (8.5-10.1); Est GFR (African American) 130.8; Est GFR (Non-African American) 112.9; Potassium 3.7 mmol/L (3.5-5.1)
[2019-06-25 10:38] LABS: Albumin Globulin Ratio 1.4 (0.9-2); Bilirubin,Total 0.2 mg/dl (0.2-1); Globulin 2.2 gm/dl (2.5-4.0); Phosphorus 2.5 mg/dl (2.5-4.9); Total Protein 5.3 gm/dl (6.4-8.2)
--- NOTE | 2019-06-25 13:59 | Hospitalist Progress Note ---
Date of Service June 25, 2019 Assessment & Plan (1) Hypophosphatemia: Patient has been having worsening diarrhea over the past few weeks, and had persistently low phosphorus levels ranging anywhere from 1.0-2.0 despite aggressive oral supplementation. likely causes in her situation would be low Phos from recent iron infusion, secondary hyperparathyroidism causing renal losses, GI losses from increased diarrhea and poor absorption Phos up to 2.0, giving additional 30mMol of K Phos IV this morning repeat phos tomorrow continue PO replacements (2) Hypocalcemia: calcium low at 7.5, corrected for albumin more like 8.2 takes Tums TID on Vitamin D (level is 60's) likely from poor absorption continue supplementation (3) Secondary hyperparathyroidism: PTH is 108 but she has low/normal calcium levels this will cause increased bone turnover also leads to phosphorus losses in kidney (4) Diarrhea: Has actually been improving somewhat recently, with no suggestion of infection. She has had extensive studies, which will not be repeated during admission has known malabsorption form h/o surgeries and Crohn's disease (5) Malabsorption: Will review records as the patient has been on pancreatic enzymes in the past. likely leading to poor absorption of calcium does get TPN 5 days a week (6) Gastroparesis: Patient has complex GI issues, for which he follows at [place]-GI dysmotility, Crohn's disease, SMA syndrome, sphincter of Oddi spasm. He has required jejunostomy tube and intermittent TPN nutrition. (7) Generalized intestinal dysmotility: See above (8) Jejunostomy tube in situ: See above (9) Crohn's disease: See above (10) SMAS (superior mesenteric artery syndrome): See above (11) On total parenteral nutrition (TPN): See above (12) Sphincter of Oddi spasm: See above (13) Adrenal insufficiency: Continue current dosing of hydrocortisone 20 mg every morning Subjective patient feeling okay, she ate some toast and drank water this morning no abdominal pain, less diarrhea no fever/chills, no vomiting, no dyspnea, no chest pressure she typically gets TPN Thursday-Thursday so nothing this weekend reviewed labs, phosphorus up to 2.0 this morning, getting 30mmol further KPhos PTH elevated at 108, calcium low at 7.5, vitamin D 60's discussed with patient and mother that likely secondary hyperparathyroidism that can cause phosphorus losses the IV iron infusion she recently had can lower phosphorus as well discussed keeping her here to monitor Phosphorus, potential to go home tomorrow Review of Systems Review of Systems: All systems reviewed & are unremarkable except as noted in HPI & below Constitutional: + fatigue and + weakness; no fever Respiratory: no cough and no dyspnea Cardiovascular: no chest pain Gastrointestinal: + diarrhea/loose stools; no abdominal pain, no nausea, no vomiting, no constipation and no blood in stools Physical Exam Constitutional: WD/WN, vitals as above + thin Eyes: PERRL, conjunctivae normal, anicteric sclerae ENMT: external ear and nose normal, oropharynx normal Neck: trachea midline, no thyromegaly Respiratory: normal respiratory effort, lungs clear to auscultation Cardiovascular: RRR, no murmur, no edema Gastrointestinal (Abdomen): normal bowel sounds, soft, nontender, no hepatosplenomegaly Musculoskeletal: no cyanosis or clubbing, extremities motor strength 5/5 Skin: no rashes, warm and dry Neurologic: patellar DTR's 2+ bilat, sensation intact and PERRL, EOMI, accommodation nl, no face palsy, no dysarthria Psychiatric: A+Ox3, euthymic affect Lymphatic: no cervical or axillary lymphadenopathy Results & Data ([facility]) Vital Signs (Past 12 Hours) Vital Signs Temp Pulse Resp BP Pulse Ox 06/25/19 11:33 36.9 C 86 18 102/69 100 06/25/19 08:03 36.8 C 74 18 93/59 L 98 06/25/19 03:26 36.9 C 90 16 104/69 98 Laboratory Results Laboratory Results - last 24 hr 06/24/19 06/24/19 06/25/19 18:48 18:48 05:45 WBC 7.13 RBC 3.80 L Hgb 12.3 Hct 35.3 L MCV 92.9 MCH 32.4 MCHC 34.8 RDW Std Deviation 41.4 RDW Coeff of Tim 12.2 Plt Count 248 MPV 10.3 Immature Gran % (Auto) 0.1 Neut % (Auto) 63.4 Lymph % (Auto) 26.6 Castro % (Auto) 9.0 Eos % (Auto) 0.6 Baso % (Auto) 0.3 Immature Gran # (Auto) 0.01 Neut # (Auto) 4.52 Lymph # (Auto) 1.90 Castro # (Auto) 0.64 H Eos # (Auto) 0.04 Baso # (Auto) 0.02 Absolute Nucleated RBC Nucleated RBC % (auto) Neutrophils % (Manual) Band Neutrophils % Lymphocytes % (Manual) Prolymphocyte % Reactive Lymphs % (Man) Monocytes % (Manual) Eosinophils % (Manual) Basophils % (Manual) Metamyelocytes % (Man) Myelocytes % (Man) Promyelocytes % (Man) Blast Cells % (Manual) Plasma Cell % (Manual) Other Cells % Nucleated RBC % Neutrophils # (Manual) Band Neutrophils # Total Absolute Neuts Lymphocytes # (Manual) Prolymphocyte # Reactive Lymphs # Total Abs Lymphocytes Monocytes # (Manual) Eosinophils # (Manual) Basophils # (Manual) Metamyelocytes # (Man) Myelocytes # (Manual) Promyelocytes # (Man) Blast Cells # (Man) Plasma Cell # (Manual) Other Cells # Nucleated RBCs # (Man) Hypersegmented Neuts Hyposegmented Neuts Hypogranular Neuts Large Granular Lymphs # Lrg Granular Lymphs Hairy Cells Smudge Cells Toxic Granulation Toxic Vacuolation Dohle Bodies Elie Rods Platelet Estimate Hypogranular Platelets Clumped Platelets Giant Platelets Platelet Satelliting RBC Morphology Polychromasia Hypochromasia Poikilocytosis Basophilic Stippling Anisocytosis Microcytosis Macrocytosis Spherocytes Pappenheimer Bodies Sickle Cells Target Cells Tear Drop Cells Ovalocytes Stomatocytes [place] Bodies Echinocytes Acanthocytes (Spur) Rouleaux RBC Agglutinates Schistocytes RBC Morph Comment Sezary Cell Sodium 141 Potassium 3.7 Chloride 111 H Carbon Dioxide 24 Anion Gap 6.0 BUN 9 Creatinine 0.59 L Est Cr Clr Drug Dosing 103.3 Est GFR ( Amer) 145.6 Est GFR (Non-Af Amer) 125.6 BUN/Creatinine Ratio 15.0 Glucose 85 Calcium 8.5 Phosphorus 1.5 L* Magnesium 2.1 Total Bilirubin 0.2 AST 13 L ALT 18 Alkaline Phosphatase 49 Total Protein 7.1 Albumin 4.1 Globulin 3.0 Albumin/Globulin Ratio 1.4 25-OH Vitamin D Total PTH Intact Urine Color Yellow Urine Appearance Clear Urine pH 5.5 Ur Specific [place] 1.014 Urine Protein Negative Urine Glucose (UA) Negative Urine Ketones Negative Urine Blood Negative Urine Nitrite Negative Urine Bilirubin Negative Urine Urobilinogen Negative Ur Leukocyte Esterase Negative 06/25/19 06/25/19 06/25/19 08:13 08:13 08:13 WBC Cancelled RBC Cancelled Hgb Cancelled Hct Cancelled MCV Cancelled MCH Cancelled MCHC Cancelled RDW Std Deviation Cancelled RDW Coeff of Tim Cancelled Plt Count Cancelled MPV Cancelled Immature Gran % (Auto) Cancelled Neut % (Auto) Cancelled Lymph % (Auto) Cancelled Castro % (Auto) Cancelled Eos % (Auto) Cancelled Baso % (Auto) Cancelled Immature Gran # (Auto) Cancelled Neut # (Auto) Cancelled Lymph # (Auto) Cancelled Castro # (Auto) Cancelled Eos # (Auto) Cancelled Baso # (Auto) Cancelled Absolute Nucleated RBC Cancelled Nucleated RBC % (auto) Cancelled Neutrophils % (Manual) Cancelled Band Neutrophils % Cancelled Lymphocytes % (Manual) Cancelled Prolymphocyte % Cancelled Reactive Lymphs % (Man) Cancelled Monocytes % (Manual) Cancelled Eosinophils % (Manual) Cancelled Basophils % (Manual) Cancelled Metamyelocytes % (Man) Cancelled Myelocytes % (Man) Cancelled Promyelocytes % (Man) Cancelled Blast Cells % (Manual) Cancelled Plasma Cell % (Manual) Cancelled Other Cells % Cancelled Nucleated RBC % Cancelled Neutrophils # (Manual) Cancelled Band Neutrophils # Cancelled Total Absolute Neuts Cancelled Lymphocytes # (Manual) Cancelled Prolymphocyte # Cancelled Reactive Lymphs # Cancelled Total Abs Lymphocytes Cancelled Monocytes # (Manual) Cancelled Eosinophils # (Manual) Cancelled Basophils # (Manual) Cancelled Metamyelocytes # (Man) Cancelled Myelocytes # (Manual) Cancelled Promyelocytes # (Man) Cancelled Blast Cells # (Man) Cancelled Plasma Cell # (Manual) Cancelled Other Cells # Cancelled Nucleated RBCs # (Man) Cancelled Hypersegmented Neuts Cancelled Hyposegmented Neuts Cancelled Hypogranular Neuts Cancelled Large Granular Lymphs Cancelled # Lrg Granular Lymphs Cancelled Hairy Cells Cancelled Smudge Cells Cancelled Toxic Granulation Cancelled Toxic Vacuolation Cancelled Dohle Bodies Cancelled Elie Rods Cancelled Platelet Estimate Cancelled Hypogranular Platelets Cancelled Clumped Platelets Cancelled Giant Platelets Cancelled Platelet Satelliting Cancelled RBC Morphology Cancelled Polychromasia Cancelled Hypochromasia Cancelled Poikilocytosis Cancelled Basophilic Stippling Cancelled Anisocytosis Cancelled Microcytosis Cancelled Macrocytosis Cancelled Spherocytes Cancelled Pappenheimer Bodies Cancelled Sickle Cells Cancelled Target Cells Cancelled Tear Drop Cells Cancelled Ovalocytes Cancelled Stomatocytes Cancelled [place] Bodies Cancelled Echinocytes Cancelled Acanthocytes (Spur) Cancelled Rouleaux Cancelled RBC Agglutinates Cancelled Schistocytes Cancelled RBC Morph Comment Cancelled Sezary Cell Cancelled Sodium Cancelled Potassium Cancelled Chloride Cancelled Carbon Dioxide Cancelled Anion Gap Cancelled BUN Cancelled Creatinine Cancelled Est Cr Clr Drug Dosing Cancelled Est GFR ( Amer) Cancelled Est GFR (Non-Af Amer) Cancelled BUN/Creatinine Ratio Cancelled Glucose Cancelled Calcium Cancelled Phosphorus Cancelled Magnesium Total Bilirubin Cancelled AST Cancelled ALT Cancelled Alkaline Phosphatase Cancelled Total Protein Cancelled Albumin Cancelled Globulin Cancelled Albumin/Globulin Ratio Cancelled 25-OH Vitamin D Total PTH Intact Cancelled Urine Color Urine Appearance Urine pH Ur Specific [place] Urine Protein Urine Glucose (UA) Urine Ketones Urine Blood Urine Nitrite Urine Bilirubin Urine Urobilinogen Ur Leukocyte Esterase 06/25/19 06/25/19 06/25/19 08:13 09:40 09:40 WBC RBC Hgb Hct MCV MCH MCHC RDW Std Deviation RDW Coeff of Tim Plt Count MPV Immature Gran % (Auto) Neut % (Auto) Lymph % (Auto) Castro % (Auto) Eos % (Auto) Baso % (Auto) Immature Gran # (Auto) Neut # (Auto) Lymph # (Auto) Castro # (Auto) Eos # (Auto) Baso # (Auto) Absolute Nucleated RBC Nucleated RBC % (auto) Neutrophils % (Manual) Band Neutrophils % Lymphocytes % (Manual) Prolymphocyte % Reactive Lymphs % (Man) Monocytes % (Manual) Eosinophils % (Manual) Basophils % (Manual) Metamyelocytes % (Man) Myelocytes % (Man) Promyelocytes % (Man) Blast Cells % (Manual) Plasma Cell % (Manual) Other Cells % Nucleated RBC % Neutrophils # (Manual) Band Neutrophils # Total Absolute Neuts Lymphocytes # (Manual) Prolymphocyte # Reactive Lymphs # Total Abs Lymphocytes Monocytes # (Manual) Eosinophils # (Manual) Basophils # (Manual) Metamyelocytes # (Man) Myelocytes # (Manual) Promyelocytes # (Man) Blast Cells # (Man) Plasma Cell # (Manual) Other Cells # Nucleated RBCs # (Man) Hypersegmented Neuts Hyposegmented Neuts Hypogranular Neuts Large Granular Lymphs # Lrg Granular Lymphs Hairy Cells Smudge Cells Toxic Granulation Toxic Vacuolation Dohle Bodies Elie Rods Platelet Estimate Hypogranular Platelets Clumped Platelets Giant Platelets Platelet Satelliting RBC Morphology Polychromasia Hypochromasia Poikilocytosis Basophilic Stippling Anisocytosis Microcytosis Macrocytosis Spherocytes Pappenheimer Bodies Sickle Cells Target Cells Tear Drop Cells Ovalocytes Stomatocytes [place] Bodies Echinocytes Acanthocytes (Spur) Rouleaux RBC Agglutinates Schistocytes RBC Morph Comment Sezary Cell Sodium 144 Potassium 3.7 Chloride 117 H Carbon Dioxide 21 Anion Gap 6.0 BUN 6 L Creatinine 0.73 Est Cr Clr Drug Dosing 89.0 Est GFR ( Amer) 130.8 Est GFR (Non-Af Amer) 112.9 BUN/Creatinine Ratio 8.1 L Glucose 154 H Calcium 7.5 L Phosphorus 2.5 D Magnesium Total Bilirubin 0.2 AST 12 L ALT 13 Alkaline Phosphatase 35 L Total Protein 5.3 L D Albumin 3.1 L Globulin 2.2 L Albumin/Globulin Ratio 1.4 25-OH Vitamin D Total 66.2 PTH Intact 108.4 H Urine Color Urine Appearance Urine pH Ur Specific [place] Urine Protein Urine Glucose (UA) Urine Ketones Urine Blood Urine Nitrite Urine Bilirubin Urine Urobilinogen Ur Leukocyte Esterase 06/25/19 09:40 WBC 5.35 RBC 3.26 L Hgb 10.3 L Hct 31.2 L MCV 95.7 MCH 31.6 MCHC 33.0 RDW Std Deviation 43.8 RDW Coeff of Tim 12.5 Plt Count 197 MPV 10.3 Immature Gran % (Auto) 0.2 Neut % (Auto) 51.9 Lymph % (Auto) 35.1 Castro % (Auto) 10.3 Eos % (Auto) 2.1 Baso % (Auto) 0.4 Immature Gran # (Auto) 0.01 Neut # (Auto) 2.78 Lymph # (Auto) 1.88 Castro # (Auto) 0.55 Eos # (Auto) 0.11 Baso # (Auto) 0.02 Absolute Nucleated RBC Nucleated RBC % (auto) Neutrophils % (Manual) Band Neutrophils % Lymphocytes % (Manual) Prolymphocyte % Reactive Lymphs % (Man) Monocytes % (Manual) Eosinophils % (Manual) Basophils % (Manual) Metamyelocytes % (Man) Myelocytes % (Man) Promyelocytes % (Man) Blast Cells % (Manual) Plasma Cell % (Manual) Other Cells % Nucleated RBC % Neutrophils # (Manual) Band Neutrophils # Total Absolute Neuts Lymphocytes # (Manual) Prolymphocyte # Reactive Lymphs # Total Abs Lymphocytes Monocytes # (Manual) Eosinophils # (Manual) Basophils # (Manual) Metamyelocytes # (Man) Myelocytes # (Manual) Promyelocytes # (Man) Blast Cells # (Man) Plasma Cell # (Manual) Other Cells # Nucleated RBCs # (Man) Hypersegmented Neuts Hyposegmented Neuts Hypogranular Neuts Large Granular Lymphs # Lrg Granular Lymphs Hairy Cells Smudge Cells Toxic Granulation Toxic Vacuolation Dohle Bodies Elie Rods Platelet Estimate Hypogranular Platelets Clumped Platelets Giant Platelets Platelet Satelliting RBC Morphology Polychromasia Hypochromasia Poikilocytosis Basophilic Stippling Anisocytosis Microcytosis Macrocytosis Spherocytes Pappenheimer Bodies Sickle Cells Target Cells Tear Drop Cells Ovalocytes Stomatocytes [place] Bodies Echinocytes Acanthocytes (Spur) Rouleaux RBC Agglutinates Schistocytes RBC Morph Comment Sezary Cell Sodium Potassium Chloride Carbon Dioxide Anion Gap BUN Creatinine Est Cr Clr Drug Dosing Est GFR ( Amer) Est GFR (Non-Af Amer) BUN/Creatinine Ratio Glucose Calcium Phosphorus Magnesium Total Bilirubin AST ALT Alkaline Phosphatase Total Protein Albumin Globulin Albumin/Globulin Ratio 25-OH Vitamin D Total PTH Intact Urine Color Urine Appearance Urine pH Ur Specific [place] Urine Protein Urine Glucose (UA) Urine Ketones Urine Blood Urine Nitrite Urine Bilirubin Urine Urobilinogen Ur Leukocyte Esterase Medications Administered Current Inpatient Medications Acetaminophen (Tylenol) 650 mg PO Q4H PRN PRN Reason: Pain or Fever Stop: 07/24/19 21:39 Albuterol (Ventolin Hfa) 2 puffs INH QID PRN PRN Reason: Shortness Of Breath Or Wheezing Stop: 07/24/19 21:44 Calcium Carbonate (Tums) 500 mg PO BID PRN PRN Reason: Acid Reflux Stop: 07/24/19 21:39 Cetirizine HCl (Zyrtec) 10 mg PO HS [facility] Stop: 07/24/19 21:39 Last Admin: 06/24/19 23:10 Dose: 10 mg Documented by: Dicyclomine HCl (Bentyl) 10 - 20 mg PO Q6 PRN PRN Reason: ABDOMINAL PAIN/IRRITABLE BOWEL Stop: 07/24/19 21:45 Last Admin: 06/24/19 23:41 Dose: 20 mg Documented by: Famotidine (Pepcid) 20 mg PO BID [facility] Stop: 07/24/19 21:39 Last Admin: 06/25/19 08:28 Dose: 20 mg Documented by: Heparin Sodium (Porcine) (Heparin Sod 100 Unit/Ml Flush) 5 ml FLUSH PRN PRN PRN Reason: Flush Stop: 07/25/19 00:29 Hydrocortisone (Cortef) 20 mg PO QAM [facility] Stop: 07/25/19 08:59 Last Admin: 06/25/19 08:28 Dose: 20 mg Documented by: Hyoscyamine (Levsin) 0.125 mg SL Q4 PRN PRN Reason: Abdominal Discomfort Stop: 07/24/19 21:39 Last Admin: 06/24/19 23:12 Dose: 0.125 mg Documented by: Levonorgestrel (Mirena) 20 ea PV UD [facility] Stop: 07/24/19 21:59 Linaclotide (Linzess) 1 ea PO BID [facility] Stop: 07/25/19 08:59 Last Admin: 06/25/19 08:30 Dose: 1 ea Documented by: Azelastine Nasal [place] - Non-Formulary Patient's Own Med 1 - 2 ea NA BID PRN PRN Reason: NASAL CONGESTION Stop: 07/24/19 22:23 Domperidone/Motilium -Non-Formulary Patient's Own Med 1 ea PO TID [facility] Stop: 07/25/19 08:59 Last Admin: 06/25/19 08:31 Dose: 1 ea Documented by: Norethindrone (Aygestin) 2.5 mg PO QAM [facility] Stop: 07/25/19 08:59 Last Admin: 06/25/19 08:28 Dose: 2.5 mg Documented by: Ondansetron HCl (Zofran Odt) 4 mg PO Q6 PRN PRN Reason: Nausea Stop: 07/24/19 21:48 Ondansetron HCl (Zofran) 4 mg IV Q6H PRN PRN Reason: Nausea Stop: 07/24/19 21:39 Last Admin: 06/25/19 08:24 Dose: 4 mg Documented by: Pantoprazole Sodium (Protonix) 40 mg PO QAM [facility] Stop: 07/25/19 08:59 Last Admin: 06/25/19 08:28 Dose: 40 mg Documented by: Polyethylene Glycol (Miralax Powder Packet) 17 gm PO DAILY PRN PRN Reason: Constipation Stop: 07/24/19 21:39 Trimethobenzamide HCl (Trimethobenzamide Hcl) 1 ea PO TID PRN PRN Reason: NAUSEA/VOMITING Stop: 07/24/19 22:29 PG Care Time/CCT Total # of Minutes Spent Total Time Spent with Patient: Total time spent is greater than 50% in coordination of care (as documented) at patient's floor/unit and/or counseling patient: Coding Level of Care Code 51687 Subseq Hosp Care [facility] 3 Diagnoses Hypophosphatemia E83.39 Hypocalcemia E83.51 Secondary hyperparathyroidism N25.81 Diarrhea K90.9; R19.7 Diarrhea type: due to malabsorption Malabsorption K90.9 Intestinal malabsorption type: unspecified Gastroparesis K31.84 Generalized intestinal dysmotility K59.8 Jejunostomy tube in situ Z93.4 Crohn's disease K50.90 SMAS (superior mesenteric artery syndrome) K55.1 On total parenteral nutrition (TPN) Z78.9 Sphincter of Oddi spasm K83.4 Adrenal insufficiency E27.40 (1) Diarrhea Diarrhea type: due to malabsorption Qualified Code(s): K90.9 - Intestinal malabsorption, unspecified; R19.7 - Diarrhea, unspecified (2) Malabsorption Intestinal malabsorption type: unspecified Qualified Code(s): K90.9 - Intestinal malabsorption, unspecified
[2019-06-25] MEDS: CETIRIZINE HCL 10 MG TABLET PO SCH (20:14)
[2019-06-25] MEDS: DICYCLOMINE HCL 10 MG CAP PO PRN (20:14)
[2019-06-25] MEDS: HYOSCYAMINE SULFATE 0.125 MG TAB SL PRN (20:15)
[2019-06-26 06:59] LABS: Basophils # (auto) 0.02 K/uL (0-0.2); Basophils % (auto) 0.3 %; Eosinophils # (auto) 0.16 K/uL (0-0.5); Eosinophils % (auto) 2.6 %; Hematocrit (blood only) 36.3 % (37-47); Immature Granulocytes # (auto) 0.01 K/uL (0.00-0.02); Immature Granulocytes % (auto) 0.2 %; Lymphocytes # (auto) 2.14 K/uL (1.2-3.4); Lymphocytes % (auto) 35.3 %; Mean Corpuscular Hemoglobin 31.3 pg (25-34); Mean Corpuscular Hgb Conc 33.1 g/dL (32-36); Mean Corpuscular Volume 94.8 fL (80-100); Mean Platelet Volume 10.2 fL (7.4-10.4); Monocytes % (auto) 9.9 %; Neutrophils # (auto) 3.13 K/uL (1.4-6.5); Neutrophils % (auto) 51.7 %; Platelet Count 241 K/uL (130-400); RDW Coefficient of Variation 12.5 % (11.5-14.5); RDW Standard Deviation 43.1 fL (36.4-46.3); Red Blood Count 3.83 M/uL (4.2-5.4); White Blood Count 6.06 K/uL (4.8-10.8)
[2019-06-26 07:39] LABS: Albumin Level 3.6 gm/dl (3.4-5.0); BUN Creatinine Ratio 8.1 (10-20); Calcium 8.2 mg/dl (8.5-10.1); Creatinine Clr Calc Pharmacy 84.4 ml/min; Est GFR (African American) 130.8; Est GFR (Non-African American) 112.9; Potassium 3.7 mmol/L (3.5-5.1)
[2019-06-26 08:04] LABS: Albumin Globulin Ratio 1.3 (0.9-2); Bilirubin,Total 0.3 mg/dl (0.2-1); Globulin 2.8 gm/dl (2.5-4.0); Phosphorus 1.9 mg/dl (2.5-4.9); Total Protein 6.4 gm/dl (6.4-8.2)
[2019-06-26] MEDS: FAMOTIDINE 20 MG TAB PO SCH (08:18)
[2019-06-26] MEDS: NORETHINDRONE 5 MG TAB PO SCH (08:18)
[2019-06-26] MEDS: [UNRECOGNIZED DRUG - OTHER] PO SCH (08:19)
[2019-06-26] MEDS: DOMPERIDONE PO SCH (08:19)
[2019-06-26] MEDS: PANTOprazole 40 MG TAB PO SCH (08:19)
[2019-06-26] MEDS: LINACLOTIDE 145 MCG PO SCH (08:20)
[2019-06-26] MEDS: HYDROCORTISONE 10 MG TAB PO SCH (08:20)
[2019-06-26] MEDS ORDERED: POTASSIUM PHOS 3 MMOL/1 ML INFUSION IV STA (09:41)
[2019-06-26] MEDS ORDERED: POTASSIUM PHOSPHATE 30 MMOL in SODIUM CHLORIDE 0.9% 500 ML IV ONE (10:00)
[2019-06-26] MEDS ORDERED: POT PHOSPHATE MONOBASIC W/ SOD TAB PO SCH (13:00)
--- NOTE | 2019-06-26 13:52 | Discharge Summary ---
Date of Service June 26, 2019 Admission HPI Per Admitting Provider The patient is a 29-year-old female with a past medical history including anemia, gastroparesis, sphincter of Oddi spasm, jejunostomy tube in situ, TPN, adrenal insufficiency, hypophosphatemia, intestinal dysmotility, asthma, SMA syndrome, Crohn's disease and hemorrhagic cystitis. She presents to the emergency department with persistently low phosphorus, and inability to raise levels with oral supplementation. Principal Diagnosis Hypophosphatemia due to secondary hyperparathyroidism Discharge Exam Constitutional WD/WN, vitals as above + thin Eyes PERRL, conjunctivae normal, anicteric sclerae ENMT external ear and nose normal, oropharynx normal Neck trachea midline, no thyromegaly Respiratory normal respiratory effort, lungs clear to auscultation Cardiovascular RRR, no murmur, no edema Gastrointestinal (Abdomen) normal bowel sounds, soft, nontender, no hepatosplenomegaly Musculoskeletal no cyanosis or clubbing, extremities motor strength 5/5 Skin no rashes, warm and dry Neurologic patellar DTR's 2+ bilat, sensation intact and PERRL, EOMI, accommodation nl, no face palsy, no dysarthria Psychiatric A+Ox3, euthymic affect Lymphatic no cervical or axillary lymphadenopathy Discharge Data Allergies Allergy/AdvReac Type Severity Reaction Status Date / Time amoxicillin Allergy Intermediate RASH Verified 06/27/19 12:36 Bactrim Allergy Intermediate RASH Verified 08/13/17 12:16 cefazolin Allergy Intermediate rash Verified 06/27/19 12:36 Cephalosporins Allergy Intermediate HIVES Verified 06/27/19 12:36 clavulanic acid Allergy Intermediate HIVES Verified 06/27/19 12:36 Penicillins Allergy Intermediate HIVES Verified 06/27/19 12:36 prochlorperazine Allergy Intermediate HIVES Verified 06/27/19 12:36 promethazine Allergy Intermediate hives, Verified 06/27/19 12:36 throat swelling sulfamethoxazole Allergy Intermediate RASH Verified 06/27/19 12:36 sumatriptan Allergy Intermediate RASH Verified 06/27/19 12:36 trimethoprim Allergy Intermediate RASH Verified 06/27/19 12:36 diphenhydramine AdvReac Intermediate Tachycardia, Verified 06/27/19 12:36 Severe Anxiety WITH IV ONLY erythromycin base AdvReac Intermediate GI SYMPTOMS Verified 06/27/19 12:36 citalopram [From Celexa] AdvReac Unknown Verified 06/27/19 12:36 MULTIVITAMIN Allergy Unknown Uncoded 06/27/19 12:36 Consultations 06/24/19 18:23 ED Decision to Admit Stat 06/24/19 21:40 Consult Case Management - Discharge Planning Routine 06/26/19 12:40 Consult SHELL[facility] hvac installer Routine Hospital Course (1) Hypophosphatemia: Patient has been having worsening diarrhea over the past few weeks, and had persistently low phosphorus levels ranging anywhere from 1.0-2.0 despite aggressive oral supplementation. likely causes in her situation would be low Phos from recent iron infusion, secondary hyperparathyroidism causing renal losses, GI losses from increased diarrhea and poor absorption Phos was 2.5 on 06/25, down to 1.9 on 06/26, will give 30mMol IV again patient typically gets phosphorus in her TPN so she has been without it discussed with pharmacy, for severe hypophosphatemia the dosing is up to 80mMol, this would take 10 hours to infuse every day will provide patient with script for [facility] to get 30mMol IV daily in addition to the phosphorus she receives in her TPN (she reports she is getting max dose of phos) continue to take NeutraPhos QID has appointment with her GI specialist at [facility] on 06/30, will keep this appt (2) Hypocalcemia: calcium low at 7.5, corrected for albumin more like 8.2 normally only takes Tums as needed, instructed her to take them scheduled BID on Vitamin D (level is 60's) likely from poor absorption continue supplementation (3) Secondary hyperparathyroidism: PTH is 108 but she has low/normal calcium levels this will cause increased bone turnover also leads to phosphorus losses in kidney (4) Diarrhea: Has actually been improving somewhat recently, with no suggestion of infection. She has had extensive studies, which will not be repeated during admission has known malabsorption form h/o surgeries and Crohn's disease (5) Malabsorption: Will review records as the patient has been on pancreatic enzymes in the past. likely leading to poor absorption of calcium does get TPN 5 days a week Thursday - Thursday (6) Gastroparesis: Patient has complex GI issues, for which he follows at [facility] dysmotility, Crohn's disease, SMA syndrome, sphincter of Oddi spasm. He has required jejunostomy tube and intermittent TPN nutrition. (7) Generalized intestinal dysmotility: See above (8) Jejunostomy tube in situ: See above (9) Crohn's disease: See above (10) SMAS (superior mesenteric artery syndrome): See above (11) On total parenteral nutrition (TPN): See above (12) Sphincter of Oddi spasm: See above (13) Adrenal insufficiency: Continue current dosing of hydrocortisone 20 mg every morning Total Time Total Time Spent Total Time Spent (In Minutes): 32 minutes Total Time Includes: Examination of the Patient, Discharge Planning, Medication Reconciliation and Other (discussions with her mother about discharge) Discharge Plan Discharge Items Patient Disposition: Home - Self-Care Reason For Visit: LOW PHOSPHORUS Discharge Diagnosis: Hypophosphatemia Condition on Discharge: Good Goals: improve phosphorus levels Activity: Resume your previous activity Non-emergency contact: Primary Care Provider and Professional Fighter Call non-emergency contact if: you have any medication questions, your symptoms worsen and you have a fever Follow-up/Referrals: Mariah Addison DO [Primary Care Provider] - 07/01/19 9:10 am (Spoke to her mother on 06/27/19 @ 0847 to confirm follow-up appointment) Diet: Regular Ambulatory Orders: Basic Metabolic Panel (Routine) Timeframe: 2 Days Location: Determined by Patient Ordered By: Tony Drummond Magnesium (Routine) Timeframe: 2 Days Location: Determined by Patient Ordered By: Tony Drummond Phosphorus (Routine) Timeframe: 2 Days Location: Determined by Patient Ordered By: Tony Drummond Addtl Attending Provider Instructions: Medications: - POTASSIUM PHOSPHATE: will order you 30mMol IV daily at the [facility] for the next week as a supplement to your TPN Secondary hyperparathyroidism likely contributing to low phosphorus because kidneys are wasting phosphorus could be due to low calcium levels, difficulty absorbing calcium with malabsorption issues recommend that you take the Tums twice a day for calcium recommend daily K PHOS 30mMol a day in addition to what you are getting in TPN recommend checking phos level on Thursday morning will give you a script for K Phos, my nurse navigator will contact [facility] tomorrow to arrange for infusion since you are familiar with [facility] and they know you well, you can call them tomorrow as well Pending Studies at Discharge: No Stand-Alone Forms: [employer], Smoking Cessation Medications and DC Order Prescriptions: New Phospha 250 Neutral 250 mg Tablet 1 tab PO QID 14 Days Qty: 56 RF: 1 Continued famotidine [Pepcid] 20 mg tablet 20 mg PO BID RF: 0 polyethylene glycol 3350 [Miralax] 17 gram Powder In Packet 17 g PO DAILY PRN (Reason: Constipation) RF: 0 calcium carbonate [Tums] 200 mg calcium (500 mg) Tablet,Chewable 400 mg PO BID PRN (Reason: Acid Reflux) RF: 0 Mirena 20 mcg/24 hours (5 yrs) 52 mg Intrauterine Device 20 mcg INTRAUTERINE UD RF: 0 senna leaf Tea 180 ml PO DAILY PRN (Reason: Constipation) RF: 0 cetirizine [Zyrtec] 10 mg Tablet 10 mg PO HS RF: 0 ondansetron HCl [Zofran] 4 mg Tablet 4 mg PO Q6 PRN (Reason: Nausea) RF: 0 pantoprazole [Protonix] 40 mg Tablet,Delayed Release (Dr/Ec) 40 mg PO QAM RF: 0 hyoscyamine sulfate 0.125 mg Tablet, Sublingual 0.125 mg SUBLINGUAL Q4 PRN (Reason: Abdominal Discomfort) RF: 0 hydrocortisone 20 mg Tablet 20 mg PO QAM RF: 0 norethindrone acetate 5 mg Tablet 2.5 mg PO QAM RF: 0 albuterol sulfate [ProAir HFA] 90 mcg/actuation Hfa Aerosol Inhaler 2 puff INHALATION QID PRN (Reason: Shortness Of Breath Or Wheezing) RF: 0 dicyclomine 10 mg Capsule 20 mg PO Q6 PRN (Reason: Abdominal Pain) RF: 0 trimethobenzamide 300 mg Capsule 300 mg PO TID PRN (Reason: Nausea) RF: 0 azelastine 0.15 % (205.5 mcg) [facility],Non-Aerosol 1 - 2 spray INTRANASAL BID PRN (Reason: Congestion) RF: 0 Linzess 145 mcg Capsule 145 mcg PO BID RF: 0 Motillium 1 tab PO TID RF: 0 Discharge Orders: Discharge Order (Routine); Ordered 06/26/19 Ordered By: Tony Drummond Admission Data Admit Date/Time: 06/24/19 20:09 Attending Provider: Tony Drummond Admit Provider: Dioni Kumar Primary Care Provider: Mariah Addison Other Providers: Praneeth Romero Other Interventions: Discharge Summary Assessment (RN) Last Done: 06/26/19 13:32 DC Date/Time DO NOT enter until pt leaves facility: 06/26/19 14:15 Coding Level of Care Code D/C Day Management >30 mins Diagnoses Hypophosphatemia E83.39 Hypocalcemia E83.51 Secondary hyperparathyroidism N25.81 Diarrhea K90.9; R19.7 Diarrhea type: due to malabsorption Malabsorption K90.9 Intestinal malabsorption type: unspecified Gastroparesis K31.84 Generalized intestinal dysmotility K59.8 Jejunostomy tube in situ Z93.4 Crohn's disease K50.90 SMAS (superior mesenteric artery syndrome) K55.1 On total parenteral nutrition (TPN) Z78.9 Sphincter of Oddi spasm K83.4 Adrenal insufficiency E27.40
== END 2019-06-26 14:15 | disposition home or self-care (01) | DRG 699 ==
LOC: ED 17:08 → SUATTDRO 20:09 → INTOOBSV 20:09 → OBSVTOIN 20:09 → 2S 20:09

== ENCOUNTER 2019-06-27 14:55 | Inpatient (IN) ==
[2019-06-27] MEDS ORDERED: MAGNESIUM HYDROXIDE SUSP 30 ML UDC PO PRN (15:00)
[2019-06-27] MEDS ORDERED: ACETAMINOPHEN 325 MG TAB PO PRN (15:00)
--- NOTE | 2019-06-27 15:09 | History & Physical Report ---
Date of Service June 27, 2019 Assessment & Plan (1) Abdominal pain: Pt has abd pain at baseline, but this was suddenly worse this AM after being much improved on DOD Pt also with CLEMENS, which is new Diarrhea, which is at baseline, hx of cdiff and states this is not similar Pain is lower abd, UA pending CXR neg WBC elevated, slight increase in temp on repeat VS with tachycardia, BP stable Hold on cdiff testing given above Pt having worsening abd pain, n/v--CTAP pending, IV contrast only given n/v Blood cx pending Given recent hospitalization and worsening status, will start vanco empirically. Limited options due to allergies Pt admitted in November with abd pain and this feel similar. She was started on abx, however workup with neg and it was decided she was most likely to have a viral GE. She was d/c'd without further abx and had no further issues at that time. Of note, WBC was WNL during this admission. (2) Hypophosphatemia: Phos 1.9 on 06/26 at d/c, has decreased to 1.6 today KPhos now, repeat labs in AM (3) Hypocalcemia: 8.9 on admission Monitor TUMS as outpt (4) Malabsorption: s/p jejunostomy TPN as at home Spoke with pharmacy and unable to mix TPN given time of day, will start tomorrow (5) Gastroparesis: continue home meds (6) Adrenal insufficiency: continue home meds Pt is on regular steroids, however WBC was WNL during entire admission (7) Anemia: WNL on admission at 13.4 Hx of iron deficiency requiring venofer administration due to absorption issues, pt completed this during recent admission (8) DVT prophylaxis: Ambulation History of Present Illness Primary Care Provider: Mariah Addison, DO 29 y/o F c/o feeling unwell. Pt was d/[facility]'d from [facility] yesterday after being admitted for hypoPhos. On DOD she was feeling quite well. She had tolerated PO. She has abd pain at baseline and her pain on d/c was at its usual. Her phos levels were improving, but not quite WNL, so it was planned that she would have infusions with the [facility] with repeat labs to monitor progress. She came to the [facility] not feeling well. She ate a bit of cereal this AM but could not finish due to nausea. She has not had any emesis. She felt warm like she had a temp. Temp on arrival to the [facility] was WNL, but repeat was mildly elevated at 37.9. BP was WNL, however pt with tachycardia. Since she woke, she has been having increased abd pain over her baseline. It is lower abd. She states that she had been urinating more prior to d/c, but she had been on IVF and when she was at home, this went back to normal. She has had no pain with urination. Pt has diarrhea at baseline. She did have diarrhea today x1 while in the [facility]. She states she had more abd pain with it than usual, but otherwise a normal bowel movement. Pt has hx of cdiff and states this was nothing like those bowel movements. Pt notes that she has been somewhat SOB with ambulation today, which was not the case yesterday. Pt denies chest pain, LE pain or swelling. There was an error in the orders and pt did not receive her KPhos today in the [facility]. Pt states that she was admitted in November with abd pain and this feel similar. She was started on abx, however workup with neg and it was decided she was most likely to have a viral GE. She was d/c'd without further abx and had no further issues at that time. Of note, WBC was WNL during this admission. Allergies Allergy/AdvReac Type Severity Reaction Status Date / Time amoxicillin Allergy Intermediate RASH Verified 06/27/19 12:36 Bactrim Allergy Intermediate RASH Verified 08/13/17 12:16 cefazolin Allergy Intermediate rash Verified 06/27/19 12:36 Cephalosporins Allergy Intermediate HIVES Verified 06/27/19 12:36 clavulanic acid Allergy Intermediate HIVES Verified 06/27/19 12:36 Penicillins Allergy Intermediate HIVES Verified 06/27/19 12:36 prochlorperazine Allergy Intermediate HIVES Verified 06/27/19 12:36 promethazine Allergy Intermediate hives, Verified 06/27/19 12:36 throat swelling sulfamethoxazole Allergy Intermediate RASH Verified 06/27/19 12:36 sumatriptan Allergy Intermediate RASH Verified 06/27/19 12:36 trimethoprim Allergy Intermediate RASH Verified 06/27/19 12:36 diphenhydramine AdvReac Intermediate Tachycardia, Verified 06/27/19 12:36 Severe Anxiety WITH IV ONLY erythromycin base AdvReac Intermediate GI SYMPTOMS Verified 06/27/19 12:36 citalopram [From Celexa] AdvReac Unknown Verified 06/27/19 12:36 MULTIVITAMIN Allergy Unknown Uncoded 06/27/19 12:36 Home Medications Home Medications Medication Instructions Recorded Confirmed Type Linzess 145 mcg PO BID 03/07/18 06/27/19 History albuterol sulfate [ProAir HFA] 2 puff INHALATION QID PRN 03/07/18 06/27/19 History azelastine 1 - 2 spray INTRANASAL BID PRN 03/07/18 06/27/19 History cetirizine [Zyrtec] 10 mg PO HS 03/07/18 06/27/19 History dicyclomine 20 mg PO Q6 PRN 03/07/18 06/27/19 History hydrocortisone 20 mg PO QAM 03/07/18 06/27/19 History hyoscyamine sulfate 0.125 mg SUBLINGUAL Q4 PRN 03/07/18 06/27/19 History norethindrone acetate 2.5 mg PO QAM 03/07/18 06/27/19 History ondansetron HCl [Zofran] 4 mg PO Q6 PRN 03/07/18 06/27/19 History pantoprazole [Protonix] 40 mg PO QAM 03/07/18 06/27/19 History trimethobenzamide 300 mg PO TID PRN 03/07/18 06/27/19 History calcium carbonate [Tums] 400 mg PO BID PRN 08/09/18 06/27/19 History polyethylene glycol 3350 [Miralax] 17 g PO DAILY PRN 08/09/18 06/27/19 History Mirena 20 mcg INTRAUTERINE UD 11/16/18 06/27/19 History senna leaf 180 ml PO DAILY PRN 11/19/18 06/27/19 History Motillium 1 tab PO TID 03/13/19 06/27/19 History famotidine 20 mg tablet 20 mg PO BID tab 05/26/19 06/27/19 History sod phos di, mono-K phos mono 1 tab PO QID 14 Days #56 tab 06/26/19 06/27/19 Rx [Phospha 250 Neutral] Past Med/Surg History Medical History Appendicitis, acute (Acute 11/07/13) Asthma (Chronic) Chronic migraine (Chronic) Crohn's disease (Chronic) Endometriosis (Resolved) Hemorrhagic cystitis (Acute) Hypotension 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 of Oddi dysfunction Uses feeding tube UTI (urinary tract infection) (Acute) Surgical History H/O adenoidectomy (Resolved) H/O laparoscopy (Resolved) H/O lumpectomy (Resolved) History of appendectomy History of vascular access device Hx of tonsillectomy (Resolved) S/P cholecystectomy S/P wrist surgery (Resolved) Family History Other No significant family history Social History Preferred Language: Albanian Communication Ability: Effective Seismic Prospecting Observer Required: No Beliefs That Will Affect Care: None marital status: single Current Living Situation: Parent current occupational status: unemployed Other Information That Helps Us Care for You: No Feels Safe at Home: Yes Safety Concerns: Feels Safe At This Time Smoking Status: Never smoker Hx Alcohol Use: No Hx Substance Use: No Review of Systems Review of Systems: Pertinent positives and negatives reviewed in HPI--all others negative Physical Exam Constitutional: well developed, + ill appearing and + thin Eyes: normal visual espinoza by confrontation and + anicteric sclerae Neck: normal visual inspection and trachea midline Respiratory: normal respiratory effort, lungs clear to auscultation Cardiovascular: Rate/Rhythm: regular rhythm and + tachycardic Gastrointestinal (Abdomen): Inspection/Auscultation: abdomen not distended Percussion/Palpation: + abdomen tender (lower abd) and abdomen soft Musculoskeletal: Head/Neck/Chest: normocephalic and head atraumatic negative for edema, peripheral pulses intact Skin: no rashes, warm and dry Neurologic: awake; not confused Speech / Cognition: normal speech Psychiatric: A+Ox3, euthymic affect Code Status & VTE Plan VTE Prophylaxis Plan VTE Prophylaxis will be ordered: Yes PG Care Time/CCT Total # of Minutes Spent Total Time Spent with Patient: Total time spent is greater than 50% in coordination of care (as documented) at patient's floor/unit and/or counseling patient: Coding Level of Care Code 32905 Initial Inpt Care Lvl 3 Diagnoses Abdominal pain R10.9 Hypophosphatemia E83.39 Hypocalcemia E83.51 Malabsorption K90.9 Intestinal malabsorption type: unspecified Gastroparesis K31.84 Adrenal insufficiency E27.40 Anemia D64.9 DVT prophylaxis Z29.9 (1) Malabsorption Intestinal malabsorption type: unspecified Qualified Code(s): K90.9 - Intestinal malabsorption, unspecified
[2019-06-27] MEDS ORDERED: POTASSIUM PHOS 3 MMOL/1 ML INFUSION IV STA (15:23)
[2019-06-27] MEDS ORDERED: CALCIUM CARBONATE 500 MG CHEWABLE TAB PO PRN (15:33)
[2019-06-27] MEDS ORDERED: POLYETHYLENE (MIRALAX) 17 GM PACK PO PRN (15:33)
[2019-06-27] MEDS ORDERED: ONDANSETRON 4 MG OD TAB PO PRN (15:33)
[2019-06-27] MEDS ORDERED: ALBUTEROL HFA 8 GM INHALER INH PRN (15:33)
[2019-06-27] MEDS ORDERED: POTASSIUM PHOSPHATE 30 MMOL in SODIUM CHLORIDE 0.9% 500 ML IV STA (15:36)
[2019-06-27] MEDS: ONDANSETRON INJ 2 MG/ML 2 ML VIAL IV PRN ×2 (15:38→21:30)
[2019-06-27] MEDS ORDERED: NON-FORMULARY MEDICATION (Levonorgestrel [Mirena] 20 MCG) IU SCH (15:45)
[2019-06-27] MEDS ORDERED: HYDROmorphone INJ 0.5 MG/0.5 ML SYR IV STA (15:47)
[2019-06-27] MEDS ORDERED: TPN/PPN CONSULT PHARMACY PRN (15:49)
[2019-06-27] MEDS: NSS + 20MEQ KCL 20 MEQ/1,000 ML BAG IV SCH (15:53)
[2019-06-27] MEDS: POT PHOSPHATE MONOBASIC W/ SOD TAB PO SCH ×2 (17:00→22:22)
[2019-06-27] MEDS ORDERED: LORazepam 0.5 MG/1 ML VIAL IV STA (17:11)
--- NOTE | 2019-06-27 18:26 | XRay Report ---
XR chest 2V PA/lateral CLINICAL HISTORY: Shortness of breath. COMPARISON STUDY: Chest radiograph June 24, 2019. FINDINGS: Lung volumes are normal. Lungs are clear. There is no pneumothorax or pleural effusion. Car diac size is normal. Mediastinal contours are normal. There is no evidence for pulmonary edema. Left subclavian [id number] is in place. Incidental note is made of cholecystectomy clips. PEG tube is p artially imaged. Mild thoracic spine scoliosis is unchanged. IMPRESSION: No acute cardiopulmonary findings. ACT 112: Negative or not required by law. Electronically signed by: Ruperto Lopez M.D. 06/27/2019 6:25 PM
[2019-06-27] MEDS ORDERED: VANCOMYCIN CONSULT ACTIVE PRN (19:23)
[2019-06-27] MEDS ORDERED: VANCOMYCIN HCL 1,000 MG/270 ML BAG IV STA (19:23)
[2019-06-27] MEDS ORDERED: VANCOMYCIN HCL 1,000 MG in SODIUM CHLORIDE 0.9% 250 ML IV STA (19:38)
[2019-06-27] MEDS: HYDROmorphone INJ 0.5 MG/0.5 ML SYR IV PRN (19:44)
--- NOTE | 2019-06-27 19:55 | Pharmacy Report ---
Pharmacy Abx Dose Short Note - Date of Service June 27, 2019 - Assessment & Plan A/P Pt is being initiated on vancomycin for an empiric indication. Pt's baseline renal fxn: Scr 0.7, eCrCL ~90cc/min. Per past admissions she tends to clear vancomycin very quickly. We will start with vancomycin 750mg (16mg/kg) q6. She is not eligible for the vancomycin AUC nomogram. We will order a trough for 06/28 @2130. This will be reflective of Css. Pharmacy will continue to follow and will adjust dose/frequency as necessary. Thank you.
[2019-06-27 20:12] LABS: Creatinine Clr Calc Pharmacy 79.7 ml/min; Est GFR (African American) 118.9; Est GFR (Non-African American) 102.6
[2019-06-27] MEDS ORDERED: TRIMETHOBENZAMIDE HCL 300 MG PO PRN (20:45)
[2019-06-27] MEDS ORDERED: IOVERSOL 100ml IV PRN (20:47)
[2019-06-27] MEDS ORDERED: AZELASTINE PRN (20:53)
[2019-06-27] MEDS ORDERED: GLUCOSE 40% GEL 15 GM TUBE PO PRN (21:15)
[2019-06-27] MEDS ORDERED: CARBOHYDRATES FOR HYPOGLYCEMIA PO PRN (21:15)
[2019-06-27] MEDS ORDERED: DEXTROSE 50% 50 ML SYRINGE IV PRN (21:15)
[2019-06-27] MEDS ORDERED: GLUCOSE 10 TABS/TUBE PO PRN (21:15)
[2019-06-27] MEDS ORDERED: GLUCAGON FOR INJ 1 MG VIAL IM PRN (21:15)
--- NOTE | 2019-06-27 21:36 | CT Scan Report ---
ABDOMEN AND PELVIS CT WITH IV CONTRAST CT DOSE: 263.85 mGy.cm HISTORY: Acute generalized abdominal pain with nausea and vomiting abd pain, n/v TECHNIQUE: Multiaxial CT images of the abdomen and pelvis were performed following the IV administrat ion of 93 cc of Optiray 320, A dose lowering technique was utilized adhering to the principles of AL JING. COMPARISON STUDY: CT abdomen and pelvis 05/30/2019 FINDINGS: Clear lung bases. There is no pneumatosis or pneumoperitoneum. Imaged inferior cardiac chambers are u nremarkable. Spleen, pancreas, and adrenal glands are unremarkable. Mild prominence of the common emani e duct, likely secondary to postcholecystectomy state. Unremarkable liver. Patency of the hepatic and portal veins. Kidneys, ureters and urinary bladder are unremarkable. IUD appears appropriate positio helena within the uterus. Follicular changes of the ovaries. Aorta and IVC are unremarkable. No adenopa thy. A gastrojejunal tube is present. Previously noted duodenal clip is not identified on today's study. T he balloon appears appropriately positioned within the mid gastric body. Air-fluid level of the stoma ch is noted. Several centimeters of intussusception noted within the proximal jejunum at the level of the jejunal tube. No significant surrounding inflammatory stranding or duodenal dilation to suggest obstruction. Scattered air-fluid levels are noted throughout the colon and ileum. Appendectomy. No dr ainable fluid collection or bowel wall thickening. Soft tissues are unremarkable. Bones appear intact . IMPRESSION: 1. Satisfactory positioning of the gastrojejunal tube and balloon. Several centimeters of jejunal-jej unal intussusception at the level of the catheter is likely transient and not of clinical significanc e as there is no upstream duodenal dilation to suggest obstruction and there is no associated bowel w all thickening or inflammatory stranding. 2. Scattered air-fluid levels within the large bowel and also within multiple loops of small bowel ar e suggestive of a nonspecific diarrheal illness with enteritis. 3. No bowel obstruction, pneumatosis or pneumoperitoneum identified. 4. Prior appendectomy and cholecystectomy. ACT 112: Negative or not required by law. The above report was generated using voice recognition software. It may contain grammatical, syntax o r spelling errors. Electronically signed by: Danny Sow M.D. 06/27/2019 9:35 PM
[2019-06-27] MEDS ORDERED: IBUPROFEN 200 MG TAB PO PRN (22:04)
[2019-06-27] MEDS: FAMOTIDINE 20 MG TAB PO SCH (22:20)
[2019-06-27] MEDS: LINACLOTIDE 145 MCG PO SCH (22:21)
[2019-06-27] MEDS: DOMPERIDONE 10 MG PO SCH (22:21)
[2019-06-27] MEDS: CETIRIZINE HCL 10 MG TABLET PO SCH (22:22)
[2019-06-27 22:45] LABS: Appearance Urine Cloudy (Clear); Bacteria Urine Automated Negative (Negative); Bilirubin Urine Negative (Negative); Blood Urine Negative (Negative); Color Urine Yellow; Glucose Urine UA Negative (Negative); Ketones Urine 1+ (Negative); Leukocyte Esterase Urine Negative (Negative); Nitrite Urine Negative (Negative); Protein Urine Negative (Negative); RBC Urine Automated 0-4 /hpf (0-4); Specific Gravity Urine 1.018 (1.000-1.030); Urobilinogen Urine Negative (Negative)
[2019-06-27] MEDS: HYOSCYAMINE SULFATE 0.125 MG TAB SL PRN (23:54)
[2019-06-28] MEDS ORDERED: LORazepam 0.25 MG/0.5 ML VIAL IV ONE (00:21)
[2019-06-28] MEDS ORDERED: SODIUM CHLORIDE 0.9% 1000ML 250 ML IV ONE (00:24)
[2019-06-28] MEDS ORDERED: HEPARIN 100 UNIT/ML 5ML FLUSH FLUSH PRN (00:32)
[2019-06-28] MEDS: NSS + 20MEQ KCL 20 MEQ/1,000 ML BAG IV SCH (03:47)
[2019-06-28] MEDS: VANCOMYCIN HCL 750 MG in SODIUM CHLORIDE 0.9% 250 ML IV SCH ×3 (03:50→19:55)
[2019-06-28] MEDS ORDERED: VANCOMYCIN HCL 750 MG in SODIUM CHLORIDE 0.9% 250 ML IV SCH (04:00)
[2019-06-28 06:23] LABS: Basophils # (auto) 0.02 K/uL (0-0.2); Basophils % (auto) 0.3 %; Eosinophils # (auto) 0.02 K/uL (0-0.5); Eosinophils % (auto) 0.3 %; Hematocrit (blood only) 33.1 % (37-47); Hemoglobin 11.2 g/dL (12.0-16.0); Lymphocytes # (auto) 0.46 K/uL (1.2-3.4); Lymphocytes % (auto) 7.7 %; Mean Corpuscular Hemoglobin 31.8 pg (25-34); Mean Corpuscular Hgb Conc 33.8 g/dL (32-36); Monocytes # (auto) 0.82 K/uL (0.11-0.59); Monocytes % (auto) 13.6 %; Neutrophils # (auto) 4.69 K/uL (1.4-6.5); Neutrophils % (auto) 78.1 %; Platelet Count 183 K/uL (130-400); RDW Coefficient of Variation 12.6 % (11.5-14.5); RDW Standard Deviation 42.7 fL (36.4-46.3); Red Blood Count 3.52 M/uL (4.2-5.4); White Blood Count 6.01 K/uL (4.8-10.8)
[2019-06-28 06:52] LABS: BUN Creatinine Ratio 17.5 (10-20); Calcium 7.4 mg/dl (8.5-10.1); Creatinine Clr Calc Pharmacy 114.5 ml/min; Est GFR (Non-African American) 128.5; Magnesium 1.7 mg/dl (1.8-2.4); Phosphorus 1.6 mg/dl (2.5-4.9); Potassium 3.7 mmol/L (3.5-5.1)
[2019-06-28] MEDS: LINACLOTIDE 145 MCG PO SCH ×2 (09:44→21:00)
[2019-06-28] MEDS: PANTOprazole 40 MG TAB PO SCH (09:45)
[2019-06-28] MEDS: POT PHOSPHATE MONOBASIC W/ SOD TAB PO SCH ×4 (09:45→21:00)
[2019-06-28] MEDS: FAMOTIDINE 20 MG TAB PO SCH ×2 (09:45→20:59)
[2019-06-28] MEDS: HYDROCORTISONE 10 MG TAB PO SCH (09:46)
[2019-06-28] MEDS: DOMPERIDONE 10 MG PO SCH ×3 (09:46→21:00)
[2019-06-28] MEDS: NORETHINDRONE 5 MG TAB PO SCH (09:46)
[2019-06-28] MEDS ORDERED: POTASSIUM PHOS 3 MMOL/1 ML INFUSION IV STA (10:15)
[2019-06-28] MEDS: ONDANSETRON INJ 2 MG/ML 2 ML VIAL IV PRN ×3 (10:38→19:58)
[2019-06-28] MEDS ORDERED: CALCIUM GLUCONATE 10% 1,000 MG in SODIUM CHLORIDE 0.9% 50 ML IV ONE (10:45)
[2019-06-28] MEDS: HYDROmorphone INJ 0.5 MG/0.5 ML SYR IV PRN ×3 (11:06→23:30)
[2019-06-28] MEDS ORDERED: MAGNESIUM SULFATE / D5W 1 GM/100 ML BAG IV ONE (11:15)
[2019-06-28] MEDS ORDERED: POTASSIUM PHOSPHATE 30 MMOL in SODIUM CHLORIDE 0.9% 500 ML IV ONE (11:15)
[2019-06-28] MEDS: CALCIUM CARBONATE 500 MG CHEWABLE TAB PO SCH ×2 (11:25→20:59)
[2019-06-28] MEDS: HYOSCYAMINE SULFATE 0.125 MG TAB SL PRN (11:34)
[2019-06-28] MEDS ORDERED: DEXTROSE 10% 1,000 ML IV PRN (12:03)
--- NOTE | 2019-06-28 12:06 | Surgery Consultation ---
Date of Consultation June 28, 2019 Assessment & Plan (1) Abdominal pain: This is a 29y F with multiple medical issues including ?crohn's, GI dysmotility, gastroparesis, h/o SMA syndrome, current GJ tube used for venting, on TPN who presents to the [facility] yesterday as a direct admission for abdominal pain, nausea/vomiting, & diarrhea worse than her baseline. Patient was started on empiric vanco for WBC yesterday of 14, down today to 6. She remains tachycardic with a Tmax of 38.2C yesterday around 21:30. CT scan shows an appropriately positioned GJ tube with concern for transient jejunal-jejunal intussusception, without evidence of bowel obstruction, with scattered air fluid levels in the large and small bowel c/f enteritis. At this time would keep patient NPO, venting g-tube as needed for nausea/vomiting, and continuing TPN for nutrition. Since patient has an extensive GI history would recommend a gastroenterology consult for further evaluation. Hopeful that her intussusception is transient and patient will not require surgical intervention. History of Present Illness Attending Physician: Vicky Drew MD History of Present Illness This is a 29y F with multiple medical issues including ?crohn's, GI dysmotility, gastroparesis, h/o SMA syndrome, current GJ tube, on TPN who presents to the [facility] yesterday as a direct admission for abdominal pain, nausea/vomiting, & diarrhea. Of note patient was recently admitted from 06/24-06/26 with hypophosphatemia, and upon discharge she was feeling well. On the AM of 06/27 patient reports that she woke up with abdominal pain, nausea, and vomited a few times (bilious in character). She went to get her port accessed yesterday and have blood work performed and staff noticed she did not look well, prompting admission for further evaluation under the medicine service. She states her abdominal pain is located around her midabdomen and is worse from her baseline. Patient does suffer from loose stool, but she experienced more bouts of diarrhea than her usual for not haven eating much yesterday (5-6x nonbloody). She currently has a GJ tube for 2 years now that she uses for venting purposes, replaced at [place] this past May. The intention was for her to use it for TEN, but she is now on TPN as she is being worked up for GI dysmotility. She is able to eat small amounts of food during the day, usually cereal for breakfast and a very light lunch and dinner. She also states she was febrile yesterday to 102F. This admission patient underwent a CT a/p for workup of abd pain that revealed satisfactory position of GJ tube, several centimeters of jejunal- jejunal intussusception at the level of the catheter is likely transient and not of clinical significance as there is no upstream duodenal dilation to suggest obstruction and there is no associated bowel wall thickening or inflammatory stranding, and scattered air-fluid levels within the large bowel and also within multiple loops of small bowel are suggestive of a nonspecific diarrheal illness with enteritis. Surgery was consulted for ongoing evaluation. Her PSH includes appendectomy, cholecystectomy, laparoscopy for endometriosis, and intervention for SMA syndrome. Patient follows closely with GI physician at [facility]. Dr Dickinson-- Please see note above- Not quite sure of her abdominal pain Is related to the intussusception seen on CAT scan. Appears to be her proximal jejunum which hasThe GJ tubeThrough the area. This would likely be a transient situation. Patient does have a very complicated GI history- Her mother has been in contact with the GI Nurse at [facility]. I do not think she requires Urgent or emergent surgery- If this were the case we would likely transfer her to [facility]. We will ask the GI team See the patient .For their input Allergies Allergy/AdvReac Type Severity Reaction Status Date / Time amoxicillin Allergy Intermediate RASH Verified 06/27/19 12:36 Bactrim Allergy Intermediate RASH Verified 08/13/17 12:16 cefazolin Allergy Intermediate rash Verified 06/27/19 12:36 Cephalosporins Allergy Intermediate HIVES Verified 06/27/19 12:36 clavulanic acid Allergy Intermediate HIVES Verified 06/27/19 12:36 Penicillins Allergy Intermediate HIVES Verified 06/27/19 12:36 prochlorperazine Allergy Intermediate HIVES Verified 06/27/19 12:36 promethazine Allergy Intermediate hives, Verified 06/27/19 12:36 throat swelling sulfamethoxazole Allergy Intermediate RASH Verified 06/27/19 12:36 sumatriptan Allergy Intermediate RASH Verified 06/27/19 12:36 trimethoprim Allergy Intermediate RASH Verified 06/27/19 12:36 diphenhydramine AdvReac Intermediate Tachycardia, Verified 06/27/19 12:36 Severe Anxiety WITH IV ONLY erythromycin base AdvReac Intermediate GI SYMPTOMS Verified 06/27/19 12:36 citalopram [From Celexa] AdvReac Unknown Verified 06/27/19 12:36 MULTIVITAMIN Allergy Unknown Uncoded 06/27/19 12:36 Home Medications Home Medications Medication Instructions Recorded Confirmed Type Linzess 145 mcg PO BID 03/07/18 06/27/19 History albuterol sulfate [ProAir HFA] 2 puff INHALATION QID PRN 03/07/18 06/27/19 History azelastine 1 - 2 spray INTRANASAL BID PRN 03/07/18 06/27/19 History cetirizine [Zyrtec] 10 mg PO HS 03/07/18 06/27/19 History dicyclomine 20 mg PO Q6 PRN 03/07/18 06/27/19 History hydrocortisone 20 mg PO QAM 03/07/18 06/27/19 History hyoscyamine sulfate 0.125 mg SUBLINGUAL Q4 PRN 03/07/18 06/27/19 History norethindrone acetate 2.5 mg PO QAM 03/07/18 06/27/19 History ondansetron HCl [Zofran] 4 mg PO Q6 PRN 03/07/18 06/27/19 History pantoprazole [Protonix] 40 mg PO QAM 03/07/18 06/27/19 History trimethobenzamide 300 mg PO TID PRN 03/07/18 06/27/19 History calcium carbonate [Tums] 400 mg PO BID PRN 08/09/18 06/27/19 History polyethylene glycol 3350 [Miralax] 17 g PO DAILY PRN 08/09/18 06/27/19 History Mirena 20 mcg INTRAUTERINE UD 11/16/18 06/27/19 History senna leaf 180 ml PO DAILY PRN 11/19/18 06/27/19 History Motillium 1 tab PO TID 03/13/19 06/27/19 History famotidine 20 mg tablet 20 mg PO BID tab 05/26/19 06/27/19 History sod phos di, mono-K phos mono 1 tab PO QID 14 Days #56 tab 06/26/19 06/27/19 Rx [Phospha 250 Neutral] Patient History Medical History Appendicitis, acute (Acute 11/07/13) Asthma (Chronic) Chronic migraine (Chronic) Crohn's disease (Chronic) Endometriosis (Resolved) Hemorrhagic cystitis (Acute) Hypotension 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 of Oddi dysfunction Uses feeding tube UTI (urinary tract infection) (Acute) Surgical History H/O adenoidectomy (Resolved) H/O laparoscopy (Resolved) H/O lumpectomy (Resolved) History of appendectomy History of vascular access device Hx of tonsillectomy (Resolved) S/P cholecystectomy S/P wrist surgery (Resolved) Family History Other No significant family history Social History Preferred Language: Colombian Communication Ability: Effective Director Software Required: No Beliefs That Will Affect Care: None marital status: single Current Living Situation: Parent current occupational status: unemployed Feels Safe at Home: Yes Smoking Status: Never smoker Hx Alcohol Use: No Hx Substance Use: No Review of Systems Constitutional: + fever Gastrointestinal: + abdominal pain (across mid abdomen), + nausea, + vomiting and + diarrhea/loose stools Genitourinary: + urinary frequency Physical Exam Physical Exam: awake/alert Constitutional: + thin and cooperative Respiratory: normal respiratory effort Cardiovascular: Rate/Rhythm: + tachycardic Gastrointestinal (Abdomen): Percussion/Palpation: + abdomen tender (ttp around mid abdomen, worse on the R) GJ tube present, currently clamped. dressing in place c/d/i Results & Data Vital Signs (Past 12 Hours) Vital Signs Temp Pulse Pulse Resp BP Pulse Ox 06/28/19 10:35 36.6 C 120 H 20 102/69 98 06/28/19 08:00 109 H 06/28/19 07:22 36.7 C 119 H 20 97/64 L 96 06/28/19 04:00 36.9 C 121 H 16 100/68 [address] WITH IV CONTRAST CT DOSE: 263.85 mGy.cm HISTORY: Acute generalized abdominal pain with nausea and vomiting abd pain, n/v TECHNIQUE: Multiaxial CT images of the abdomen and pelvis were performed following the IV administration of 93 cc of Optiray 320, A dose lowering technique was utilized adhering to the principles of ALARA. COMPARISON STUDY: CT abdomen and pelvis 05/30/2019 FINDINGS: Clear lung bases. There is no pneumatosis or pneumoperitoneum. Imaged inferior cardiac chambers are unremarkable. Spleen, pancreas, and adrenal glands are unremarkable. Mild prominence of the common bile duct, likely secondary to postcholecystectomy state. Unremarkable liver. Patency of the hepatic and portal veins. Kidneys, ureters and urinary bladder are unremarkable. IUD appears appropriate positioning within the uterus. Follicular changes of the ovaries. Aorta and IVC are unremarkable. No adenopathy. A gastrojejunal tube is present. Previously noted duodenal clip is not identified on today's study. The balloon appears appropriately positioned within the mid gastric body. Air-fluid level of the stomach is noted. Several centimeters of intussusception noted within the proximal jejunum at the level of the jejunal tube. No significant surrounding inflammatory stranding or duodenal dilation to suggest obstruction. Scattered air-fluid levels are noted throughout the colon and ileum. Appendectomy. No drainable fluid collection or bowel wall thickening. Soft tissues are unremarkable. Bones appear intact. IMPRESSION: 1. Satisfactory positioning of the gastrojejunal tube and balloon. Several centimeters of jejunal-jejunal intussusception at the level of the catheter is likely transient and not of clinical significance as there is no upstream duodenal dilation to suggest obstruction and there is no associated bowel wall thickening or inflammatory stranding. 2. Scattered air-fluid levels within the large bowel and also within multiple loops of small bowel are suggestive of a nonspecific diarrheal illness with enteritis. 3. No bowel obstruction, pneumatosis or pneumoperitoneum identified. 4. Prior appendectomy and cholecystectomy. ACT 112: Negative or not required by law. The above report was generated using voice recognition software. It may contain grammatical, syntax or spelling errors. Electronically signed by: Danny Sow M.D. 06/27/2019 9:35 PM PG Care Time/CCT Total # of Minutes Spent Total Time Spent with Patient: Total time spent is greater than 50% in coordination of care (as documented) at patient's floor/unit and/or counseling patient: Coding Level of Care Code 13207 Inpt Consult Level 3 Diagnoses Abdominal pain R10.9
--- NOTE | 2019-06-28 14:10 | Pharmacy Report ---
Pharmacy PN Initial Consult - Date of Service June 28, 2019 - Scope Pharmacy has been consulted to manage parenteral nutrition orders and order appropriate labs. As part of the Nutrition Support Team guidelines, pharmacy will work in conjunction with dietary when determining the patients caloric needs. - Subjective The patient is a 29 year old F admitted on 06/27/19 15:00 for hypophosphatemia and abdominal pain. Patient is to receive parenteral nutrition for continued chronic management of Crohn's, GI dysmotility, gastroparesis, h/o SMA syndrome. She has a GJ tube that is currently used for venting. - Objective Height: 5 ft 6 in Weight: 47.174 kg Diet: Full Liquid Vascular Access:: implanted port Intake & Output (Last 24Hrs): Intake & Output 06/26/19 06/27/19 06/28/19 06/29/19 06:59 06:59 06:59 06:59 Intake Total 2491 / 2491 160 / 160 Output Total 800 / 800 Balance 1691 / 1691 160 / 160 Weight 47.174 kg 47.174 kg Laboratory Data (Last 24 Hrs):: 06/27/19 06/28/19 19:42 06:07 Sodium 141 Potassium 3.7 Chloride 114 H Carbon Dioxide 22 BUN 10 Creatinine 0.79 0.55 L Glucose 83 Calcium 7.4 L D Phosphorus 1.6 L Magnesium 1.7 L Triglycerides 64 Nutrition Assessment:: Please refer to the Notes section of the EMR for the most recent shipping weigher note. - Assessment * 29 y/o female on chronic PN who follows with [facility] in [place] for outpatient PN management * She was admitted recently for hypophosphatemia, thought to be related to her iron product that she was receiving as an outpatient * She continues to have hypophosphatemia this admission, although patient's mother reports she has not received her PN since last (usually contains 30 mMol of K Phos) * Patient concerned about nausea with PN as this sometimes occurs. Dietitian discussed with patient/mother who were in agreement to trial 24 hour infusion instead of her outpatient 12 hour cyclic infusion to help combat the nausea. * Since she has not received her PN in a few days, dietitian recommended to reduce dextrose initially and I'm in agreement with this. He also worked up her macronutrients based upon current weight/needs, which are slightly diffe rent than outpatient regimen, so will trial this for now. * Regarding electrolytes, will provide similar amounts as per outpatient regimen but decrease K initially. She was receiving ~120 mEq total in her bag and her K has been stable ~3.7 after 4-5 days without PN. * Patient received these supplements outside of the PN today: KPhos 30 mMol, Ca gluconate 1 gm, Mag sulfate 1 gm - Plan For day 1 of inpatient PN administration, the following will be ordered: Macronutrients Amino acids 90 grams/day (at goal per new dietary recommendations) Dextrose 125 grams/day (can advance to goal of 175 g per new recs) Lipids 50 grams/day (at goal per new recs) Micronutrients Sodium acetate 82 mEq Potassium phosphate 30 mMol Magnesium sulfate 12.18 mEq Calcium gluconate 13.8 mEq Trace Elements 1 mL Folic acid 1 mg Thiamine 100 mg Pepcid 20 mg *Note: no MVI due to allergy Total volume 1416 mL to be infused over 24 hrs will provide 1285 kcal/day Labs to be ordered per PN order protocol Stop IVF once PN starts Pharmacy will follow and adjust parenteral nutrition orders on a daily basis. Chris ya.
[2019-06-28] MEDS ORDERED: CENTRAL PN IV SCH (16:00)
[2019-06-28] MEDS ORDERED: TPN IV SCH (16:00)
[2019-06-28] MEDS ORDERED: IVF: STOP ORDER ONE (16:00)
[2019-06-28] MEDS ORDERED: NURSING DECISION MEDICATION ONE (16:53)
--- NOTE | 2019-06-28 17:17 | Gastrointestinal Consultation ---
Date of Consultation June 28, 2019 Assessment & Plan (1) Abdominal pain: chronic with increase this admit. Perhaps due to intussception Intusseception--unclear etiology. Spoke with Dr Drew and surgeon wondered if any endoscopic management possible. I am not sure we could reach the area in question and am not sure of any benefit. In addition, if there were to be perforation and they are not comfortable operating here than that is an issue. So if surgery feels this needs to be fixed then would send to [place]. Discussed with patient, mother and Dr Drew. I feel the patient is very complicated and if supportive care is not working then she needs to be transferred to [place]. History of Present Illness Reason for Consultation: abd pain, n/v, diarhea Attending Physician: Vicky Drew MD History of Present Illness cc abd pain HPI Pt known to our service seen last by us 2018 for n/v. She has hx of SMA syndrome. She has GI dysmotility and has GJ tube for venting and to try jejenal feeds. She has not tolerated jejunal feeds and has been on TPN. She follow with [facility]. She was just DC after being treated for low Phosporous. She has loose stools thought to be overflow diarrhea per her GI. She was admitted for worsening abd pain, n/v. CT a/p scan showed jejunal intussecption at the level of the J tube, air fluid levels in SB and colon. Pt does not feel her pain is any better. She has n/v also. Allergies Allergy/AdvReac Type Severity Reaction Status Date / Time amoxicillin Allergy Intermediate RASH Verified 06/27/19 12:36 Bactrim Allergy Intermediate RASH Verified 08/13/17 12:16 cefazolin Allergy Intermediate rash Verified 06/27/19 12:36 Cephalosporins Allergy Intermediate HIVES Verified 06/27/19 12:36 clavulanic acid Allergy Intermediate HIVES Verified 06/27/19 12:36 Penicillins Allergy Intermediate HIVES Verified 06/27/19 12:36 prochlorperazine Allergy Intermediate HIVES Verified 06/27/19 12:36 promethazine Allergy Intermediate hives, Verified 06/27/19 12:36 throat swelling sulfamethoxazole Allergy Intermediate RASH Verified 06/27/19 12:36 sumatriptan Allergy Intermediate RASH Verified 06/27/19 12:36 trimethoprim Allergy Intermediate RASH Verified 06/27/19 12:36 diphenhydramine AdvReac Intermediate Tachycardia, Verified 06/27/19 12:36 Severe Anxiety WITH IV ONLY erythromycin base AdvReac Intermediate GI SYMPTOMS Verified 06/27/19 12:36 citalopram [From Celexa] AdvReac Unknown Verified 06/27/19 12:36 MULTIVITAMIN Allergy Unknown Uncoded 06/27/19 12:36 Home Medications Home Medications Medication Instructions Recorded Confirmed Type Linzess 145 mcg PO BID 03/07/18 06/27/19 History albuterol sulfate [ProAir HFA] 2 puff INHALATION QID PRN 03/07/18 06/27/19 History azelastine 1 - 2 spray INTRANASAL BID PRN 03/07/18 06/27/19 History cetirizine [Zyrtec] 10 mg PO HS 03/07/18 06/27/19 History dicyclomine 20 mg PO Q6 PRN 03/07/18 06/27/19 History hydrocortisone 20 mg PO QAM 03/07/18 06/27/19 History hyoscyamine sulfate 0.125 mg SUBLINGUAL Q4 PRN 03/07/18 06/27/19 History norethindrone acetate 2.5 mg PO QAM 03/07/18 06/27/19 History ondansetron HCl [Zofran] 4 mg PO Q6 PRN 03/07/18 06/27/19 History pantoprazole [Protonix] 40 mg PO QAM 03/07/18 06/27/19 History trimethobenzamide 300 mg PO TID PRN 03/07/18 06/27/19 History calcium carbonate [Tums] 400 mg PO BID PRN 08/09/18 06/27/19 History polyethylene glycol 3350 [Miralax] 17 g PO DAILY PRN 08/09/18 06/27/19 History Mirena 20 mcg INTRAUTERINE UD 11/16/18 06/27/19 History senna leaf 180 ml PO DAILY PRN 11/19/18 06/27/19 History Motillium 1 tab PO TID 03/13/19 06/27/19 History famotidine 20 mg tablet 20 mg PO BID tab 05/26/19 06/27/19 History sod phos di, mono-K phos mono 1 tab PO QID 14 Days #56 tab 06/26/19 06/27/19 Rx [Phospha 250 Neutral] Patient History Medical History Appendicitis, acute (Acute 11/07/13) Asthma (Chronic) Chronic migraine (Chronic) Crohn's disease (Chronic) Endometriosis (Resolved) Hemorrhagic cystitis (Acute) Hypotension 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 of Oddi dysfunction Uses feeding tube UTI (urinary tract infection) (Acute) Surgical History H/O adenoidectomy (Resolved) H/O laparoscopy (Resolved) H/O lumpectomy (Resolved) History of appendectomy History of vascular access device Hx of tonsillectomy (Resolved) S/P cholecystectomy S/P wrist surgery (Resolved) Family History Other No significant family history Social History Preferred Language: Beninese Communication Ability: Effective Digester Required: No Beliefs That Will Affect Care: None marital status: single Current Living Situation: Parent current occupational status: unemployed Feels Safe at Home: Yes Smoking Status: Never smoker Hx Alcohol Use: No Hx Substance Use: No Review of Systems Review of Systems: All systems reviewed & are unremarkable except as noted in HPI & below Physical Exam Constitutional: WD/WN, vitals as above Eyes: PERRL, conjunctivae normal, anicteric sclerae Neck: normal visual inspection and trachea midline Respiratory: normal respiratory effort, lungs clear to auscultation Gastrointestinal (Abdomen): pos bs, soft, no guarding nor rebound Neurologic: PERRL, EOMI, accommodation nl, no face palsy, no dysarthria Psychiatric: A+Ox3, euthymic affect Results & Data ([facility]) Vital Signs (Past 12 Hours) Vital Signs Temp Pulse Pulse Resp BP Pulse Ox 06/28/19 15:27 118 H 06/28/19 15:22 36.6 C 117 H 16 98/64 L 97 06/28/19 10:35 36.6 C 120 H 20 102/69 98 06/28/19 08:00 109 H 02/11/20 07:22 36.7 C 119 H 20 97/64 L 96
--- NOTE | 2019-06-28 17:45 | Hospitalist Progress Note ---
Date of Service June 28, 2019 Assessment & Plan (1) Abdominal pain: Pt has chronic abd pain at baseline, but became acutely worse the day of admission Diarrhea, which is at baseline, hx of cdiff and states this is not similar Pain is mid abdomen UA negative for infection CXR neg WBC elevated on admission and now improved, with fever after admission CT abd/pel with jejunal-jejunal intussusception near her J-tube, but no evidence of edema or obstruction Blood cx pending-NGTD -continuing on IV Vanco empirically for fever with port in place Pt admitted in November 2018 with abd pain, intractable N/V and fever almost identical to this admission except CT at that time showed enteritis rather than intussusception She was started on abx, however workup with neg and it was decided she was most likely to have a viral GE. She was d/c'd without further abx and had no further issues at that time. -Consulted Surgery and GI today--> no endoscopy or surgery to be done here. Surgery in touch with pt's specialist at [facility], Dr. Lantigua's office--> recommend no procedures be done here-consider transferring to [facility] but Dr. Lantigua would like to speak to GI directly in the morning to decide. Unclear if abd pain is secondary to the intussusception -continue pain control -giving stress dosed steroids--> perhaps this is at least partially due to adrenal crisis with abd pains, N/V, hypotension, tachycardia (2) Hypophosphatemia: Remains low, replace with IV potassium phosphate today -Follow phosphorus level in the morning (3) Hypocalcemia: Calcium level low today at 7.4, albumin is normal Replace with 1 g of IV calcium gluconate -Follow calcium level in the morning (4) Malabsorption: s/p jejunostomy TPN as at home Spoke with pharmacy-starting TPN today to be run slowly over 24 hours-she had not had her TPN in 5 days (5) Gastroparesis: continue home meds (6) Adrenal insufficiency: continue home po hydrocortisone -giving stress dosed steroids as above due to hypotension, tachycardia -start HC 50mg IV q8h (7) Anemia: WNL on admission at 13.4 and down slightly to 11.2 today likely hemodilutional Hx of iron deficiency requiring venofer administration due to absorption issues, pt completed this during recent admission (8) Hypotension: secondary to adrenal insufficiency -stress dosed steroids as above -was given IVFs and now dc IVFs with transition to TPN (9) Sinus tachycardia: secondary to hypotension, dehydration -improving with IVFs and hydrocortisone continue tele monitoring (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 (11) Chronic migraine: gets outpt botox injections pain meds as needed (12) Diarrhea: chronic, has h/o leakage of loose stool around constipation with intestinal dysmotility (13) Secondary hyperparathyroidism: (14) On total parenteral nutrition (TPN): as above Pharmacy managing (15) Fever: as above, unclear source Continue IV Vanco for now and can stop if BCxs NGTD after 48 hours (16) Hypokalemia: replaced with KPhos IV follow BMP in AM (17) Nausea and vomiting: as above intractable Can vent with J-tube if needed continue Zofran prn add IV ativan 0.5mg IV q6h prn which also helps Cannot tolerate reglan or phenergan or compazine (18) DVT prophylaxis: Ambulation DIspo-may need transfer to [facility] tomorrow if not improving, awaiting for GI to speak to her specialist there in the morning Admission and Anticipated Discharge Date Admission Date: June 28, 2019 Anticipated date of discharge: 06/29/19 Subjective Patient continues to have upper abdominal pain that is somewhat relieved with pain medication. Continues to have some dry heaving and nausea that is partially relieved with Zofran. She had Ativan last night which helped with nausea. Having diarrhea today. Blood pressures remain low and has sinus tachycardia on telemetry at times to the 150s. I discussed her case with both general surgeon and the clothing sorter today. Discussed her case extensively with her mom at the bedside as well. Discussed possible transfer to [facility] but the mother states that the patient's specialist at [facility] wants to speak directly to our clothing sorter in the morning before deciding whether she would need to be transferred. Review of Systems Review of Systems: All systems reviewed & are unremarkable except as noted in HPI & below (No chest pains, feels occasionally short of breath with ambulation. Has a chronic daily headache that is slightly worse than usual, no blood in stool) Physical Exam Constitutional: + ill appearing and + underweight; no acute distress Eyes: PERRL, conjunctivae normal, anicteric sclerae ENMT: external ear and nose normal, oropharynx normal Neck: trachea midline, no thyromegaly Respiratory: normal respiratory effort, lungs clear to auscultation Cardiovascular: RRR, no murmur, no edema Chest (Breasts): Chest: normal inspection of chest Gastrointestinal (Abdomen): Inspection/Auscultation: normal bowel sounds; + abdomen abnormal to inspection (J-tube in place) Percussion/Palpation: abdomen soft; abdomen nontender Musculoskeletal: Extremities: extremities normal to inspection; no cyanosis and no clubbing Skin: no rashes, warm and dry Neurologic: moves all extremities and awake; no focal motor deficits Psychiatric: Orientation: alert and oriented x 3 Eye Contact: good eye contact Speech: normal rate/rhythm/volume of speech Affect: + flat affect Lymphatic: no lymphedema Results & Data ([facility]) Vital Signs (Past 12 Hours) Vital Signs Temp Pulse Pulse Resp BP Pulse Ox 06/28/19 15:27 118 H 06/28/19 15:22 36.6 C 117 H 16 98/64 L 97 06/28/19 10:35 36.6 C 120 H 20 102/69 98 06/28/19 08:00 109 H 06/28/19 07:22 36.7 C 119 H 20 97/64 L 96 Laboratory Results 06/28/19 06/28/19 06/27/19 Range/Units 06:07 06:07 Unknown WBC 6.01 (4.8-10.8) K/uL RBC 3.52 L (4.2-5.4) M/uL Hgb 11.2 L (12.0-16.0) g/dL Hct 33.1 L (37-47) % MCV 94.0 (80-100) fL MCH 31.8 (25-34) pg MCHC 33.8 (32-36) g/dL RDW Std Deviation 42.7 (36.4-46.3) fL RDW Coeff of Tim 12.6 (11.5-14.5) % Plt Count 183 (130-400) K/uL MPV 10.0 (7.4-10.4) fL Immature Gran % (Auto) 0.0 % Neut % (Auto) 78.1 % Lymph % (Auto) 7.7 % Graham % (Auto) 13.6 % Eos % (Auto) 0.3 % Baso % (Auto) 0.3 % Immature Gran # (Auto) 0.00 (0.00-0.02) K/uL Neut # (Auto) 4.69 (1.4-6.5) K/uL Lymph # (Auto) 0.46 L (1.2-3.4) K/uL Graham # (Auto) 0.82 H (0.11-0.59) K/uL Eos # (Auto) 0.02 (0-0.5) K/uL Baso # (Auto) 0.02 (0-0.2) K/uL Sodium 141 (136-145) mmol/L Potassium 3.7 (3.5-5.1) mmol/L Chloride 114 H (98-107) mmol/L Carbon Dioxide 22 (21-32) mmol/L Anion Gap 5.0 (3-11) BUN 10 (7-18) mg/dl Creatinine 0.55 L (0.6-1.2) mg/dl Est Cr Clr Drug Dosing 114.5 ml/min Est GFR ( Amer) 149.0 Est GFR (Non-Af Amer) 128.5 BUN/Creatinine Ratio 17.5 (10-20) Glucose 83 (70-99) mg/dl Calcium 7.4 L D (8.5-10.1) mg/dl Phosphorus 1.6 L (2.5-4.9) mg/dl Magnesium 1.7 L (1.8-2.4) mg/dl Triglycerides 64 (0-150) mg/dl Urine Color Yellow Urine Appearance Cloudy A (Clear) Urine pH 5.0 (4.5-7.5) Ur Specific [place] 1.018 (1.000-1.030) Urine Protein Negative (Negative) Urine Glucose (UA) Negative (Negative) Urine Ketones 1+ H (Negative) Urine Blood Negative (Negative) Urine Nitrite Negative (Negative) Urine Bilirubin Negative (Negative) Urine Urobilinogen Negative (Negative) Ur Leukocyte Esterase Negative (Negative) Urine WBC (Auto) 1-5 (0-5) /hpf Urine RBC (Auto) 0-4 (0-4) /hpf U Hyaline Cast (Auto) 1-5 (0-5) /lpf U Epithel Cells (Auto) 5-10 H (0-5) /lpf Urine Bacteria (Auto) Negative (Negative) PG Care Time/CCT Total # of Minutes Spent Total Time Spent with Patient: Total time spent is greater than 50% in coordination of care (as documented) at patient's floor/unit and/or counseling patient: Coding Level of Care Code 52517 Subseq Hosp Care Lvl 3 Diagnoses Abdominal pain R10.9 Hypophosphatemia E83.39 Hypocalcemia E83.51 Malabsorption K90.9 Intestinal malabsorption type: unspecified Gastroparesis K31.84 Adrenal insufficiency E27.40 Anemia D64.9 Hypotension I95.9 Sinus tachycardia R00.0 Jejunal intussusception K56.1 Chronic migraine G43.709 Diarrhea K90.9; R19.7 Diarrhea type: due to malabsorption Secondary hyperparathyroidism N25.81 On total parenteral nutrition (TPN) Z78.9 Fever R50.9 Hypokalemia E87.6 Nausea and vomiting R11.2 DVT prophylaxis Z29.9 (1) Diarrhea Diarrhea type: due to malabsorption Qualified Code(s): K90.9 - Intestinal malabsorption, unspecified; R19.7 - Diarrhea, unspecified (2) Malabsorption Intestinal malabsorption type: unspecified Qualified Code(s): K90.9 - Intestinal malabsorption, unspecified
[2019-06-28] MEDS: LORazepam 0.5 MG/1 ML VIAL IV PRN (18:04)
[2019-06-28] MEDS: HYDROCORTISONE SOD 50 MG in SYRINGE 0 ML IV SCH ×2 (19:23→23:27)
[2019-06-28] MEDS: CETIRIZINE HCL 10 MG TABLET PO SCH (20:59)
[2019-06-28] MEDS ORDERED: VANCOMYCIN TROUGH ONE (21:30)
[2019-06-29] MEDS ORDERED: VANCOMYCIN TROUGH ONE (03:30)
[2019-06-29] MEDS: ONDANSETRON INJ 2 MG/ML 2 ML VIAL IV PRN ×3 (03:35→20:13)
[2019-06-29] MEDS: VANCOMYCIN HCL 750 MG in SODIUM CHLORIDE 0.9% 250 ML IV SCH ×4 (03:37→22:17)
[2019-06-29 03:42] LABS: BUN Creatinine Ratio 18.5 (10-20); Blood Urea Nitrogen 9 mg/dl (7-18); Calcium 8.2 mg/dl (8.5-10.1); Carbon Dioxide 27 mmol/L (21-32); Chloride 109 mmol/L (98-107); Creatinine Clr Calc Pharmacy 136.8 ml/min; Est GFR (African American) > 150.0; Est GFR (Non-African American) 136.3; Glucose 150 mg/dl (70-99); Phosphorus 1.6 mg/dl (2.5-4.9); Potassium 3.8 mmol/L (3.5-5.1); Sodium 140 mmol/L (136-145)
[2019-06-29 05:27] LABS: Basophils # (auto) 0.01 K/uL (0-0.2); Basophils % (auto) 0.3 %; Hematocrit (blood only) 32.1 % (37-47); Hemoglobin 10.9 g/dL (12.0-16.0); Immature Granulocytes # (auto) 0.01 K/uL (0.00-0.02); Immature Granulocytes % (auto) 0.3 %; Lymphocytes # (auto) 0.37 K/uL (1.2-3.4); Lymphocytes % (auto) 9.3 %; Mean Corpuscular Hemoglobin 31.8 pg (25-34); Mean Corpuscular Volume 93.6 fL (80-100); Mean Platelet Volume 10.2 fL (7.4-10.4); Monocytes # (auto) 0.43 K/uL (0.11-0.59); Monocytes % (auto) 10.8 %; Neutrophils # (auto) 3.16 K/uL (1.4-6.5); Neutrophils % (auto) 79.3 %; Platelet Count 191 K/uL (130-400); RDW Coefficient of Variation 12.3 % (11.5-14.5); RDW Standard Deviation 41.7 fL (36.4-46.3); Red Blood Count 3.43 M/uL (4.2-5.4); White Blood Count 3.98 K/uL (4.8-10.8)
[2019-06-29] MEDS: HYDROCORTISONE SOD 50 MG in SYRINGE 0 ML IV SCH ×3 (05:40→22:14)
[2019-06-29 05:44] LABS: Alanine Aminotransferase 245 U/L (12-78); Aspartate Aminotransferase 128 U/L (15-37); Blood Urea Nitrogen 9 mg/dl (7-18); Calcium 8.3 mg/dl (8.5-10.1); Carbon Dioxide 27 mmol/L (21-32); Chloride 109 mmol/L (98-107); Creatinine Clr Calc Pharmacy 131.1 ml/min; Est GFR (African American) > 150.0; Est GFR (Non-African American) 134.4; Glucose Fasting 146 mg/dl (70-99); Potassium 3.8 mmol/L (3.5-5.1); Sodium 140 mmol/L (136-145)
[2019-06-29 05:46] LABS: Albumin Globulin Ratio 1.1 (0.9-2); Alkaline Phosphatase 68 U/L (45-117); Bilirubin,Total 0.2 mg/dl (0.2-1); Globulin 2.7 gm/dl (2.5-4.0); Total Protein 5.7 gm/dl (6.4-8.2)
--- NOTE | 2019-06-29 07:50 | Surgery Progress Note ---
Date of Service June 29, 2019 Assessment & Plan (1) Jejunal intussusception: pain does not seem to be in area of involved jejunum no plan for surgical intervention discussing options with GI team at [facility] Subjective no lower abd pain last pm- rec Dilaudid no emesis, no LUQ pain Physical Exam Physical Exam: abd soft - min tenderness decreased bowel sounds Respiratory: normal respiratory effort; no respiratory distress Cardiovascular: Rate/Rhythm: regular rhythm Skin: no rashes, warm and dry Neurologic: awake Psychiatric: Orientation: alert Results & Data Vital Signs (Past 12 Hours) Vital Signs Temp Pulse Pulse Resp BP Pulse Ox 06/29/19 07:38 36.7 C 93 H 16 96/63 L 97 06/29/19 04:00 109 H 06/29/19 03:42 36.9 C 77 102/67 98 06/29/19 00:00 93 H 06/28/19 23:28 36.5 C 104 H 18 99/65 L 97 PG Care Time/CCT Total # of Minutes Spent Total Time Spent with Patient: Total time spent is greater than 50% in coordination of care (as documented) at patient's floor/unit and/or counseling patient: Coding Level of Care Code 67255 Inpt Consult Level 3 Diagnoses Jejunal intussusception K56.1
[2019-06-29] MEDS: HYDROmorphone INJ 0.5 MG/0.5 ML SYR IV PRN ×3 (08:39→20:19)
[2019-06-29] MEDS: POT PHOSPHATE MONOBASIC W/ SOD TAB PO SCH ×4 (08:42→22:22)
[2019-06-29] MEDS: CALCIUM CARBONATE 500 MG CHEWABLE TAB PO SCH ×2 (08:42→22:22)
[2019-06-29] MEDS: FAMOTIDINE 20 MG TAB PO SCH ×2 (08:43→22:22)
[2019-06-29] MEDS: NORETHINDRONE 5 MG TAB PO SCH (08:43)
[2019-06-29] MEDS: HYDROCORTISONE 10 MG TAB PO SCH (08:43)
[2019-06-29] MEDS: DOMPERIDONE 10 MG PO SCH ×3 (08:44→22:22)
[2019-06-29] MEDS: PANTOprazole 40 MG TAB PO SCH (08:44)
[2019-06-29] MEDS: LINACLOTIDE 145 MCG PO SCH ×2 (08:45→22:23)
[2019-06-29] MEDS ORDERED: SODIUM PHOSPHATE 3 MMOL/1 ML INFUSION IV STA ×2 (08:53→23:14)
[2019-06-29] MEDS ORDERED: SODIUM PHOSPHATE 15 MMOL in SODIUM CHLORIDE 0.9% 250 ML IV ONE ×2 (09:30→09:45)
[2019-06-29] MEDS: LORazepam 0.5 MG/1 ML VIAL IV PRN ×3 (10:17→22:07)
--- NOTE | 2019-06-29 14:33 | Pharmacy Report ---
Pharmacy Abx Dose Short Note - Date of Service June 29, 2019 - Assessment & Plan Assessment 29 year old F receiving vancomycin for empiric treatment Day # 1.5 of antimicrobial therapy. Plan Vancomycin * Trough level of 8.1 mcg/mL is subtherapeutic * Change to 750 mg q6H * Goal trough level 15-20 mcg/mL * Trough not ordered as currently empiric and expect to be discontinued after dose dose tonight per discussion with provider, if continued will obtain trou gh prior to next available dose (either 0330 or 0930 on 06/30). Pharmacy will continue to follow and will adjust dose/frequency as necessary. Thank you.
[2019-06-29] MEDS ORDERED: LORazepam 2 MG/4 ML VIAL ONE (14:40)
--- NOTE | 2019-06-29 15:09 | Discharge Summary ---
Date of Service June 29, 2019 Admission HPI Per Admitting Provider 29 y/o F c/o feeling unwell. Pt was d/c'd from [facility] yesterday after being admitted for hypoPhos. On DOD she was feeling quite well. She had tolerated PO. She has abd pain at baseline and her pain on d/c was at its usual. Her phos levels were improving, but not quite WNL, so it was planned that she would have infusions with the MTU with repeat labs to monitor progress. She came to the MTU not feeling well. She ate a bit of cereal this AM but could not finish due to nausea. She has not had any emesis. She felt warm like she had a temp. Temp on arrival to the MTU was WNL, but repeat was mildly elevated at 37.9. BP was WNL, however pt with tachycardia. Since she woke, she has been having increased abd pain over her baseline. It is lower abd. She states that she had been urinating more prior to d/c, but she had been on IVF and when she was at home, this went back to normal. She has had no pain with urination. Pt has diarrhea at baseline. She did have diarrhea today x1 while in the MTU. She states she had more abd pain with it than usual, but otherwise a normal bowel movement. Pt has hx of cdiff and states this was nothing like those bowel movements. Pt notes that she has been somewhat SOB with ambulation today, which was not the case yesterday. Pt denies chest pain, LE pain or swelling. There was an error in the orders and pt did not receive her KPhos today in the MTU. Pt states that she was admitted in November with abd pain and this feel similar. She was started on abx, however workup with neg and it was decided she was most likely to have a viral GE. She was d/c'd without further abx and had no further issues at that time. Of note, WBC was WNL during this admission. Principal Diagnosis Jejunal-jejunal intussusception, intractable nausea/vomiting and abdominal pain, hypophosphatemia Discharge Exam Constitutional + ill appearing and + underweight; no acute distress Eyes + anicteric sclerae ENMT external ear and nose normal, oropharynx normal Neck trachea midline, no thyromegaly Respiratory normal respiratory effort, lungs clear to auscultation Cardiovascular RRR, no murmur, no edema Chest (Breasts) Chest: normal inspection of chest Gastrointestinal (Abdomen) Inspection/Auscultation: normal bowel sounds; + abdomen abnormal to inspection (J-tube in place) Percussion/Palpation: + abdomen tender (mid abdomen without guarding) and abdomen soft; no guarding (and no rebound) and abdomen not rigid Musculoskeletal Extremities: extremities normal to inspection; no cyanosis and no clubbing Skin no rashes, warm and dry Neurologic moves all extremities and awake; no focal motor deficits Psychiatric Orientation: alert and oriented x 3 Eye Contact: good eye contact Speech: normal rate/rhythm/volume of speech Affect: + flat affect Lymphatic no lymphedema Discharge Data Allergies Allergy/AdvReac Type Severity Reaction Status Date / Time amoxicillin Allergy Intermediate RASH Verified 06/27/19 12:36 Bactrim Allergy Intermediate RASH Verified 08/13/17 12:16 cefazolin Allergy Intermediate rash Verified 06/27/19 12:36 Cephalosporins Allergy Intermediate HIVES Verified 06/27/19 12:36 clavulanic acid Allergy Intermediate HIVES Verified 06/27/19 12:36 Penicillins Allergy Intermediate HIVES Verified 06/27/19 12:36 prochlorperazine Allergy Intermediate HIVES Verified 06/27/19 12:36 promethazine Allergy Intermediate hives, Verified 06/27/19 12:36 throat swelling sulfamethoxazole Allergy Intermediate RASH Verified 06/27/19 12:36 sumatriptan Allergy Intermediate RASH Verified 06/27/19 12:36 trimethoprim Allergy Intermediate RASH Verified 06/27/19 12:36 diphenhydramine AdvReac Intermediate Tachycardia, Verified 06/27/19 12:36 Severe Anxiety WITH IV ONLY erythromycin base AdvReac Intermediate GI SYMPTOMS Verified 06/27/19 12:36 citalopram [From Celexa] AdvReac Unknown Verified 06/27/19 12:36 MULTIVITAMIN Allergy Unknown Uncoded 06/27/19 12:36 Consultations 06/28/19 10:22 Consult General Surgery Routine 06/28/19 12:43 Consult Gastroenterology Routine 06/29/19 14:40 Burn CD for patient Stat Ordered Studies 06/27/19 19:23 CT abd pelvis IV con only Urgent CXR Hospital Course (1) Abdominal pain: Pt has chronic abd pain at baseline, but became acutely worse the day of admission Diarrhea, which is at baseline, hx of cdiff and states this is not similar--> now no loose stools on day of discharge Pain is mid abdomen UA negative for infection CXR neg WBC elevated on admission and now improved, with fever after admission that is now resolved CT abd/pel with jejunal-jejunal intussusception near her J-tube, but no evidence of edema or obstruction Blood cx pending-NGTD -continuing on IV Vanco empirically for fever with port in place-can dc Vanco on evening of 06/29/19 if BCxs remain no growth Pt admitted in November 2018 with abd pain, intractable N/V and fever almost identical to this admission except CT at that time showed enteritis rather than intussusception She was started on abx, however workup with neg and it was decided she was most likely to have a viral GE. She was d/c'd without further abx and had no further issues at that time. -Consulted Surgery and GI --> no endoscopy or surgery to be done here given complex history and her specialists are at [facility] Surgery and GI, as well as myself have been in touch with pt's specialist at [facility], Dr. Lantigua-> recommend transfer to [place] for further evaluation Unclear if abd pain is secondary to the intussusception? -continue pain control with IV dilaudid as needed -giving stress dosed steroids--> perhaps this is at least partially due to adrenal crisis with abd pains, N/V, hypotension, tachycardia? (2) Nausea and vomiting: as above intractable Can vent with J-tube if needed continue Zofran prn -continue IV ativan 0.5mg IV q4h prn which also helps Cannot tolerate reglan or phenergan or compazine (3) Hypophosphatemia: Remains low, replace with IV sodium phosphate today in addition to phosphorus in TPN -Follow phosphorus level in the morning (4) Hypocalcemia: Calcium level low at 7.4 on admission, albumin is normal Replaced with 1 g of IV calcium gluconate and TUMs bid--> today Ca++ is normal -Follow calcium level in the morning (5) Malabsorption: s/p jejunostomy TPN as at home she had not had her TPN in 5 days prior to admission-started again on 06/28 -LFTs now increased acutely perhaps due to refeeding? -follow LFTs (6) Gastroparesis: continue home meds (7) Adrenal insufficiency: continue home po hydrocortisone 20mg daily -giving stress dosed steroids as above due to hypotension, tachycardia--> BPs and tachycardia have both improved somewhat -continue HC 50mg IV q8h (8) Anemia: WNL on admission at 13.4 and down slightly to 10.9 today likely hemodilutional Hx of iron deficiency requiring venofer administration due to absorption issues, pt completed this during recent admission (9) Hypotension: secondary to adrenal insufficiency-improved with IV hydrocortisone -stress dosed steroids as above -was given IVFs and now dc IVFs with transition to TPN (10) Sinus tachycardia: secondary to hypotension, dehydration-resolving with IV hydrocortisone and improvement of hypotension (11) Jejunal intussusception: as above (12) Chronic migraine: gets outpt botox injections pain meds as needed (13) Diarrhea: chronic, has h/o leakage of loose stool around constipation with intestinal dysmotility (14) Secondary hyperparathyroidism: (15) On total parenteral nutrition (TPN): as above Pharmacy managing (16) Fever: as above, unclear source Continue IV Vanco for now and can stop if BCxs NGTD after 48 hours (17) Hypokalemia: replaced and improved--> now receiving in TPN follow BMP in AM (18) DVT prophylaxis: Ambulation DIspo- transfer to [facility] as is not improving--> accepting Physician is Dr. Lantigua Total Time Total Time Spent Total Time Spent (In Minutes): 45 min Total Time Includes: Examination of the Patient, Discharge Planning, Medication Reconciliation and Communication With Other Providers (Gastroenterology) Discharge Plan Discharge Items Patient Disposition: Transfer Acute Care Hospital Reason For Visit: HYPOPHOSPHATEMIA Discharge Diagnosis: Jejunal-jejunal intussusception, intractable nausea/vomiting and abdominal pain Condition on Discharge: Serious Activity: As commented below Exercise/Sports: Rest today Non-emergency contact: Primary Care Provider and Box Feeder Call non-emergency contact if: you have any medication questions, your symptoms worsen, your pain is not controlled, your pain is worsening, your pain is unusual for you and your pain is concerning for you Follow-up/Referrals: Mariah Addison DO [Primary Care Provider] - Diet: Clear liquid Diet Comment: NPO Addtl Attending Provider Instructions: Transferred to [facility] Pending Studies at Discharge: No Stand-Alone Forms: My [facility] Skilled Items Patient informed of condition?: Yes DNR: No Discharge Level of Care: Other Communicable Disease: No Discharge Prognosis: Stable Lines: [place] Urinary Catheter: No Medications and DC Order Prescriptions: New hydrocortisone sod succinate 100 mg recon soln 50 mg IV Q8 Qty: 10 RF: 0 Continued famotidine [Pepcid] 20 mg tablet 20 mg PO BID RF: 0 polyethylene glycol 3350 [Miralax] 17 gram Powder In Packet 17 g PO DAILY PRN (Reason: Constipation) RF: 0 calcium carbonate [Tums] 200 mg calcium (500 mg) Tablet,Chewable 400 mg PO BID PRN (Reason: Acid Reflux) RF: 0 Mirena 20 mcg/24 hours (5 yrs) 52 mg Intrauterine Device 20 mcg INTRAUTERINE UD RF: 0 senna leaf Tea 180 ml PO DAILY PRN (Reason: Constipation) RF: 0 cetirizine [Zyrtec] 10 mg Tablet 10 mg PO HS RF: 0 ondansetron HCl [Zofran] 4 mg Tablet 4 mg PO Q6 PRN (Reason: Nausea) RF: 0 pantoprazole [Protonix] 40 mg Tablet,Delayed Release (Dr/Ec) 40 mg PO QAM RF: 0 hyoscyamine sulfate 0.125 mg Tablet, Sublingual 0.125 mg SUBLINGUAL Q4 PRN (Reason: Abdominal Discomfort) RF: 0 hydrocortisone 20 mg Tablet 20 mg PO QAM RF: 0 norethindrone acetate 5 mg Tablet 2.5 mg PO QAM RF: 0 albuterol sulfate [ProAir HFA] 90 mcg/actuation Hfa Aerosol Inhaler 2 puff INHALATION QID PRN (Reason: Shortness Of Breath Or Wheezing) RF: 0 dicyclomine 10 mg Capsule 20 mg PO Q6 PRN (Reason: Abdominal Pain) RF: 0 trimethobenzamide 300 mg Capsule 300 mg PO TID PRN (Reason: Nausea) RF: 0 azelastine 0.15 % (205.5 mcg) [place],Non-Aerosol 1 - 2 spray INTRANASAL BID PRN (Reason: Congestion) RF: 0 Linzess 145 mcg Capsule 145 mcg PO BID RF: 0 Motillium 1 tab PO TID RF: 0 Phospha 250 Neutral 250 mg Tablet 1 tab PO QID 14 Days Qty: 56 RF: 1 Discharge Orders: Discharge Order (Routine); Ordered 06/29/19 Ordered By: Vicky Drew Admission Data Admit Date/Time: 06/28/19 17:36 Attending Provider: Vicky Drew Admit Provider: Debo Weldon Primary Care Provider: Mariah Addison Other Providers: Sukhjinder Dickinson ; Candido Fernández Coding Level of Care Code D/C Day Management >30 mins Diagnoses Abdominal pain R10.9 Nausea and vomiting R11.2 Hypophosphatemia E83.39 Hypocalcemia E83.51 Malabsorption K90.9 Intestinal malabsorption type: unspecified Gastroparesis K31.84 Adrenal insufficiency E27.40 Anemia D64.9 Hypotension I95.9 Sinus tachycardia R00.0 Jejunal intussusception K56.1 Chronic migraine G43.709 Diarrhea K90.9; R19.7 Diarrhea type: due to malabsorption Secondary hyperparathyroidism N25.81 On total parenteral nutrition (TPN) Z78.9 Fever R50.9 Hypokalemia E87.6 DVT prophylaxis Z29.9
[2019-06-29] MEDS ORDERED: CENTRAL PN IV SCH ×2 (16:00)
[2019-06-29] MEDS ORDERED: TPN IV SCH ×2 (16:00)
[2019-06-29] MEDS: CETIRIZINE HCL 10 MG TABLET PO SCH (22:22)
[2019-06-29] MEDS ORDERED: SODIUM PHOSPHATE 21 MMOL in SODIUM CHLORIDE 0.9% 500 ML IV ONE (23:30)
[2019-06-30] MEDS: LORazepam 0.5 MG/1 ML VIAL IV PRN ×4 (02:16→19:09)
[2019-06-30] MEDS: ONDANSETRON INJ 2 MG/ML 2 ML VIAL IV PRN ×4 (02:16→23:27)
[2019-06-30] MEDS: HYDROmorphone INJ 0.5 MG/0.5 ML SYR IV PRN ×4 (04:50→20:36)
[2019-06-30] MEDS: HYDROCORTISONE SOD 50 MG in SYRINGE 0 ML IV SCH ×3 (05:27→20:36)
[2019-06-30 06:24] LABS: Basophils # (auto) 0.01 K/uL (0-0.2); Basophils % (auto) 0.1 %; Hematocrit (blood only) 29.6 % (37-47); Hemoglobin 10.1 g/dL (12.0-16.0); Immature Granulocytes # (auto) 0.01 K/uL (0.00-0.02); Immature Granulocytes % (auto) 0.1 %; Lymphocytes # (auto) 1.11 K/uL (1.2-3.4); Lymphocytes % (auto) 15.2 %; Mean Corpuscular Hemoglobin 32.1 pg (25-34); Mean Corpuscular Hgb Conc 34.1 g/dL (32-36); Mean Platelet Volume 10.1 fL (7.4-10.4); Monocytes # (auto) 0.87 K/uL (0.11-0.59); Neutrophils # (auto) 5.28 K/uL (1.4-6.5); Neutrophils % (auto) 72.6 %; Platelet Count 187 K/uL (130-400); RDW Coefficient of Variation 12.5 % (11.5-14.5); RDW Standard Deviation 42.8 fL (36.4-46.3); Red Blood Count 3.15 M/uL (4.2-5.4); White Blood Count 7.28 K/uL (4.8-10.8)
[2019-06-30 06:53] LABS: Alanine Aminotransferase 138 U/L (12-78); Albumin Level 2.8 gm/dl (3.4-5.0); Aspartate Aminotransferase 35 U/L (15-37); Blood Urea Nitrogen 10 mg/dl (7-18); Calcium 7.8 mg/dl (8.5-10.1); Carbon Dioxide 28 mmol/L (21-32); Chloride 112 mmol/L (98-107); Creatinine Clr Calc Pharmacy 144.5 ml/min; Est GFR (African American) > 150.0; Est GFR (Non-African American) 134.4; Glucose 131 mg/dl (70-99); Magnesium 1.8 mg/dl (1.8-2.4); Sodium 144 mmol/L (136-145)
[2019-06-30 06:56] LABS: Albumin Globulin Ratio 1.2 (0.9-2); Alkaline Phosphatase 55 U/L (45-117); Bilirubin,Total 0.3 mg/dl (0.2-1); Globulin 2.4 gm/dl (2.5-4.0); Phosphorus 3.1 mg/dl (2.5-4.9); Total Protein 5.2 gm/dl (6.4-8.2)
[2019-06-30] MEDS ORDERED: POTASSIUM CHLORIDE / WTR 20 MEQ/100 ML PLCT IV ONE (08:09)
[2019-06-30] MEDS: NORETHINDRONE 5 MG TAB PO SCH (08:59)
[2019-06-30] MEDS: CALCIUM CARBONATE 500 MG CHEWABLE TAB PO SCH ×2 (09:01→21:46)
[2019-06-30] MEDS: POT PHOSPHATE MONOBASIC W/ SOD TAB PO SCH ×4 (09:02→21:46)
[2019-06-30] MEDS: PANTOprazole 40 MG TAB PO SCH (09:02)
[2019-06-30] MEDS: HYDROCORTISONE 10 MG TAB PO SCH (09:03)
[2019-06-30] MEDS: LINACLOTIDE 145 MCG PO SCH ×2 (09:04→21:45)
[2019-06-30] MEDS: DOMPERIDONE 10 MG PO SCH ×3 (09:06→21:46)
[2019-06-30] MEDS ORDERED: TPN IV SCH (16:00)
[2019-06-30] MEDS ORDERED: CENTRAL PN IV SCH (16:00)
[2019-06-30] MEDS: CETIRIZINE HCL 10 MG TABLET PO SCH (21:46)
[2019-07-01] MEDS: HYDROmorphone INJ 0.5 MG/0.5 ML SYR IV PRN ×4 (01:48→21:44)
[2019-07-01] MEDS: HYDROCORTISONE SOD 50 MG in SYRINGE 0 ML IV SCH (05:32)
[2019-07-01 06:21] LABS: Basophils # (auto) 0.02 K/uL (0-0.2); Basophils % (auto) 0.2 %; Eosinophils # (auto) 0.01 K/uL (0-0.5); Eosinophils % (auto) 0.1 %; Hematocrit (blood only) 29.8 % (37-47); Hemoglobin 10.3 g/dL (12.0-16.0); Immature Granulocytes # (auto) 0.04 K/uL (0.00-0.02); Immature Granulocytes % (auto) 0.5 %; Lymphocytes # (auto) 1.86 K/uL (1.2-3.4); Lymphocytes % (auto) 22.7 %; Mean Corpuscular Hemoglobin 31.8 pg (25-34); Mean Corpuscular Hgb Conc 34.6 g/dL (32-36); Mean Platelet Volume 10.1 fL (7.4-10.4); Monocytes # (auto) 0.97 K/uL (0.11-0.59); Monocytes % (auto) 11.8 %; Neutrophils % (auto) 64.7 %; Platelet Count 225 K/uL (130-400); RDW Standard Deviation 40.9 fL (36.4-46.3); Red Blood Count 3.24 M/uL (4.2-5.4)
[2019-07-01 06:50] LABS: Alanine Aminotransferase 112 U/L (12-78); BUN Creatinine Ratio 25.4 (10-20); Blood Urea Nitrogen 12 mg/dl (7-18); Calcium 8.2 mg/dl (8.5-10.1); Carbon Dioxide 26 mmol/L (21-32); Chloride 110 mmol/L (98-107); Creatinine Clr Calc Pharmacy 153.7 ml/min; Est GFR (African American) > 150.0; Est GFR (Non-African American) 136.3; Glucose 94 mg/dl (70-99); Magnesium 1.8 mg/dl (1.8-2.4); Potassium 3.1 mmol/L (3.5-5.1); Sodium 143 mmol/L (136-145)
[2019-07-01 06:55] LABS: Albumin Globulin Ratio 1.3 (0.9-2); Alkaline Phosphatase 52 U/L (45-117); Aspartate Aminotransferase 25 U/L (15-37); Bilirubin,Total 0.2 mg/dl (0.2-1); Globulin 2.4 gm/dl (2.5-4.0); Phosphorus 2.1 mg/dl (2.5-4.9); Total Protein 5.4 gm/dl (6.4-8.2)
[2019-07-01] MEDS: LORazepam 0.5 MG/1 ML VIAL IV PRN ×3 (09:58→22:54)
[2019-07-01] MEDS ORDERED: TPN IV SCH ×2 (10:00→16:00)
[2019-07-01] MEDS ORDERED: CENTRAL PN IV SCH ×2 (10:00→16:00)
[2019-07-01] MEDS ORDERED: POTASSIUM PHOS 3 MMOL/1 ML INFUSION IV STA (10:15)
[2019-07-01] MEDS ORDERED: POTASSIUM PHOSPHATE 24 MMOL in SODIUM CHLORIDE 0.9% 500 ML IV ONE (10:30)
[2019-07-01] MEDS: DOMPERIDONE 10 MG PO SCH ×3 (11:46→20:35)
[2019-07-01] MEDS: POT PHOSPHATE MONOBASIC W/ SOD TAB PO SCH ×4 (11:47→20:34)
[2019-07-01] MEDS: ONDANSETRON INJ 2 MG/ML 2 ML VIAL IV PRN ×2 (14:01→20:42)
[2019-07-01] MEDS: NORETHINDRONE 5 MG TAB PO SCH (14:02)
[2019-07-01] MEDS: HYDROCORTISONE 10 MG TAB PO SCH (14:02)
[2019-07-01] MEDS: PANTOprazole 40 MG TAB PO SCH (14:02)
[2019-07-01] MEDS: LINACLOTIDE 145 MCG PO SCH ×2 (14:02→20:35)
[2019-07-01] MEDS: CALCIUM CARBONATE 500 MG CHEWABLE TAB PO SCH ×2 (14:02→20:36)
[2019-07-01] MEDS: HYDROCORTISONE SOD 25 MG in SYRINGE 0 ML IV SCH ×2 (14:04→22:35)
[2019-07-01] MEDS ORDERED: HYDROmorphone INJ 0.5 MG/0.5 ML SYR IV STA (16:16)
[2019-07-01 16:31] LABS: Basophils # (auto) 0.02 K/uL (0-0.2); Basophils % (auto) 0.3 %; Hematocrit (blood only) 32.2 % (37-47); Hemoglobin 10.9 g/dL (12.0-16.0); Immature Granulocytes # (auto) 0.07 K/uL (0.00-0.02); Lymphocytes # (auto) 1.14 K/uL (1.2-3.4); Lymphocytes % (auto) 16.5 %; Mean Corpuscular Hemoglobin 31.5 pg (25-34); Mean Corpuscular Volume 93.1 fL (80-100); Mean Platelet Volume 10.1 fL (7.4-10.4); Monocytes # (auto) 0.64 K/uL (0.11-0.59); Monocytes % (auto) 9.2 %; Neutrophils # (auto) 5.05 K/uL (1.4-6.5); Platelet Count 231 K/uL (130-400); RDW Coefficient of Variation 12.1 % (11.5-14.5); RDW Standard Deviation 41.1 fL (36.4-46.3); Red Blood Count 3.46 M/uL (4.2-5.4); White Blood Count 6.92 K/uL (4.8-10.8)
[2019-07-01 16:49] LABS: Pregnancy Test, Serum Negative (Negative)
[2019-07-01 16:50] LABS: Mean Corpuscular Hgb Conc 33.9 g/dL (32-36)
[2019-07-01 17:03] LABS: Alanine Aminotransferase 105 U/L (12-78); Albumin Globulin Ratio 1.3 (0.9-2); Albumin Level 3.3 gm/dl (3.4-5.0); Alkaline Phosphatase 53 U/L (45-117); Aspartate Aminotransferase 21 U/L (15-37); BUN Creatinine Ratio 23.5 (10-20); Bilirubin,Total 0.2 mg/dl (0.2-1); Blood Urea Nitrogen 12 mg/dl (7-18); Calcium 8.2 mg/dl (8.5-10.1); Carbon Dioxide 26 mmol/L (21-32); Chloride 110 mmol/L (98-107); Creatinine Clr Calc Pharmacy 144.3 ml/min; Est GFR (African American) > 150.0; Est GFR (Non-African American) 133.5; Globulin 2.6 gm/dl (2.5-4.0); Glucose 104 mg/dl (70-99); Magnesium 1.8 mg/dl (1.8-2.4); Potassium 3.7 mmol/L (3.5-5.1); Sodium 141 mmol/L (136-145); Total Protein 5.9 gm/dl (6.4-8.2)
[2019-07-01] MEDS ORDERED: IOVERSOL 100ml IV PRN (17:24)
--- NOTE | 2019-07-01 17:36 | CT Scan Report ---
CT SCAN OF THE ABDOMEN AND PELVIS WITH IV CONTRAST CLINICAL HISTORY: Generalized abdominal pain. COMPARISON STUDY: Abdominal CT dated 06/27/2019. TECHNIQUE: Following the IV administration of 94 cc of Optiray 320, CT scan of the abdomen and pelvi s is performed from the lung bases to the proximal femora. Images are reviewed in the axial, sagittal , and coronal planes. IV contrast was administered without complication. A dose lowering technique wa s utilized adhering to the principles of ALARA. CT DOSE: 255.38 mGy.cm FINDINGS: Lung bases: The heart is normal in size and without pericardial effusion. The lung bases are clear. Liver: The contrast-enhanced liver is normal in size, contour, and attenuation. Fatty infiltration is noted adjacent to falciform ligament. There is minimal central intrahepatic biliary ductal dilatatio n. The hepatic veins and portal veins are patent. Gallbladder: Surgically absent noting clips in the gallbladder fossa. Spleen: Normal in size and attenuation. Pancreas: Unremarkable. Adrenal glands: Unremarkable. Kidneys: The contrast enhanced kidneys are normal in size and without hydronephrosis. The kidneys enh ance symmetrically. Abdominal vasculature: The abdominal aorta is normal in course and caliber. Bowel: A gastrojejunostomy tube is in appropriate position. A proximal jejunal-jejunal intussusceptio n around the catheter in the left upper quadrant is unchanged (axial image #155). There is no associa jeffrey bowel wall thickening or surrounding inflammation. There is no bowel obstruction. Liquid stool is noted in the colon. The appendix is surgically absent. Peritoneum: There is no intraperitoneal free air or abdominal ascites. Lymphadenopathy: None. Pelvic viscera: The bladder, uterus, and adnexa are normal as visualized noting an intrauterine devic e in place. There are small ovarian follicles. Free fluid is seen in the cul-de-sac. Skeletal structures: No lytic or blastic lesions are seen. IMPRESSION: 1. A gastrojejunostomy tube is in appropriate position. 2. A proximal jejunal-jejunal intussusception in the left upper quadrant around the catheter is uncha nged. This is of indeterminant (if any) clinical significance. There is no evidence of upstream obstr uction, bowel wall thickening, or surrounding inflammation. 3. Liquid stool is noted in the colon. Correlate clinically for evidence of a nonspecific enterocolit is/diarrheal illness. 4. Nonspecific free fluid in the cul-de-sac is likely within physiologic limits. ACT 112: Negative or not required by law. Electronically signed by: Kirk Burgos M.D. 07/01/2019 5:35 PM
[2019-07-01] MEDS ORDERED: SOD PHOSPHATE/SOD BIPHOSPHATE ENEMA 132 ML BTL PR PRN (17:54)
[2019-07-01] MEDS: DICYCLOMINE HCL 20 MG TAB PO PRN (19:38)
[2019-07-01] MEDS: CETIRIZINE HCL 10 MG TABLET PO SCH (20:36)
--- NOTE | 2019-07-01 23:47 | Hospitalist Progress Note ---
Date of Service July 01, 2019 Assessment & Plan (1) Abdominal pain: Pt has chronic abd pain at baseline, but became acutely worse the day of admission Diarrhea, which is at baseline, hx of cdiff and states this is not similar Pain is mid abdomen UA negative for infection CXR neg WBC elevated on admission and now improved, with fever after admission that is now resolved CT abd/pel with jejunal-jejunal intussusception near her J-tube, but no evidence of edema or obstruction Blood cx pending-NGTD -was on IV Vanco empirically for fever with port in place-have since discontinued her Vanco on evening of 06/29/19 as BCxs remained no growth Pt admitted in November 2018 with abd pain, intractable N/V and fever almost identical to this admission except CT at that time showed enteritis rather than intussusception She was started on abx, however workup with neg and it was decided she was most likely to have a viral GE. She was d/c'd without further abx and had no further issues at that time. -Consulted Surgery and GI --> no endoscopy or surgery to be done here given complex history and her specialists are at [facility] Surgery and GI, as well as myself have been in touch with pt's specialist at [facility], Dr. Lantigua-> recommend transfer to [place] for further evaluation. Pt accepted and discharge order placed on 06/29 however still awaiting a bed Unclear if abd pain is secondary to the intussusception? Had acute worsening of pain on afternoon of 07/01--> repeat labs including lactate all fine. Repeat STAT CT abd/pel with IV contrast again shows jejunal intussusception around feeding tube but again no bowel edema or obstruction Pain improved with extra doses of dilaudid and with bentyl -continue pain control with IV dilaudid as needed Awaiting transfer to [place] in case of need for specialized surgical intervention (2) Nausea and vomiting: as above intractable and continues--> has not been able to tolerate anything by mouth in many days Can vent with J-tube if needed continue Zofran prn -continue IV ativan 0.5mg IV q4h prn which also helps Cannot tolerate reglan or phenergan or compazine On chronic TPN-pharmacy managing (3) Hypophosphatemia: Remains low, replace with IV sodium phosphate today in addition to phosphorus in TPN -Follow phosphorus level in the morning (4) Hypocalcemia: Calcium level low at 7.4 on admission, albumin is normal Replaced with 1 g of IV calcium gluconate and TUMs bid--> today Ca++ is normal -Follow calcium level in the morning -dc TUMS as may be causing binding of phosphorus and poor absorption (5) Malabsorption: s/p jejunostomy TPN as at home she had not had her TPN in 5 days prior to admission-started again on 06/28 -LFTs now increased acutely perhaps due to refeeding? Now improving -follow LFTs (6) Gastroparesis: continue home meds (7) Adrenal insufficiency: continue home po hydrocortisone 20mg daily -giving stress dosed steroids as above due to hypotension, tachycardia--> BPs and tachycardia have both improved somewhat -decrease IV HC to 25mg IV q8h and can stop tomorrow (8) Anemia: WNL on admission at 13.4 and down slightly to 10.3 today likely hemodilutional Hx of iron deficiency requiring venofer administration due to absorption issues, pt completed this during recent admission (9) Hypotension: secondary to adrenal insufficiency-improved with IV hydrocortisone -stress dosed steroids as above -was given IVFs and now dc IVFs with transition to TPN (10) Sinus tachycardia: secondary to hypotension, dehydration-resolved with IV hydrocortisone and improvement of hypotension (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 Citlalli caballero in August (13) Diarrhea: chronic, has h/o leakage of loose stool around constipation with intestinal dysmotility (14) Secondary hyperparathyroidism: (15) On total parenteral nutrition (TPN): as above Pharmacy managing (16) Fever: as above, unclear source Has port in place BCx NGTD Received IV Vanco for 48 hours and then stopped (17) Hypokalemia: replace in TPN and IV potassium phos today follow BMP in AM (18) DVT prophylaxis: Ambulation DIspo- transfer to [facility] as is not improving--> accepting Physician is Dr. Lantigua Still awaiting a bed there since 06/29 Admission and Anticipated Discharge Date Admission Date: June 28, 2019 Anticipated date of discharge: 07/02/19 Subjective I saw the patient three times today. In the morning, she was still having nausea, some dry heaves at times, and abd pain that was controlled with pain medicine. I saw her again mid day and then was paged at 1600 with RN stating pt was having severe pain. I came back to assess her and she was moaning, having severe mid abd pain. +Nausea, no vomiting. Denied passing flatus or stool today. Denied other new issues. Still awaiting a bed at [facility] Review of Systems Review of Systems: All systems reviewed & are unremarkable except as noted in HPI & below Physical Exam Constitutional: + acute distress, + ill appearing and + underweight Eyes: + anicteric sclerae ENMT: external ear and nose normal, oropharynx normal Neck: trachea midline, no thyromegaly Respiratory: normal respiratory effort, lungs clear to auscultation Cardiovascular: RRR, no murmur, no edema Chest (Breasts): Chest: normal inspection of chest Gastrointestinal (Abdomen): Inspection/Auscultation: + hypoactive bowel sounds; + abdomen abnormal to inspection (J-tube in place) Percussion/Palpation: + abdomen tender (diffusely) and abdomen soft; no guarding (and no rebound) and abdomen not rigid Musculoskeletal: Extremities: extremities normal to inspection; no cyanosis and no clubbing Skin: no rashes, warm and dry Neurologic: moves all extremities and awake; no focal motor deficits Psychiatric: Speech: normal rate/rhythm/volume of speech Affect: + flat affect Lymphatic: no lymphedema Results & Data ([facility]) Vital Signs (Past 12 Hours) Vital Signs Temp Pulse Pulse Resp BP Pulse Ox 07/01/19 19:37 36.7 C 63 20 100/65 100 07/01/19 16:00 72 07/01/19 15:11 36.8 C 73 18 111/71 98 Laboratory Results 07/01/19 07/01/19 07/01/19 Range/Units 18:09 16:22 16:22 WBC (4.8-10.8) K/uL RBC (4.2-5.4) M/uL Hgb (12.0-16.0) g/dL Hct (37-47) % MCV (80-100) fL MCH (25-34) pg MCHC (32-36) g/dL RDW Std Deviation (36.4-46.3) fL RDW Coeff of Tim (11.5-14.5) % Plt Count (130-400) K/uL MPV (7.4-10.4) fL Immature Gran % (Auto) % Neut % (Auto) % Lymph % (Auto) % [place] % (Auto) % Eos % (Auto) % Baso % (Auto) % Immature Gran # (Auto) (0.00-0.02) K/uL Neut # (Auto) (1.4-6.5) K/uL Lymph # (Auto) (1.2-3.4) K/uL [place] # (Auto) (0.11-0.59) K/uL Eos # (Auto) (0-0.5) K/uL Baso # (Auto) (0-0.2) K/uL Sodium (136-145) mmol/L Potassium (3.5-5.1) mmol/L Chloride (98-107) mmol/L Carbon Dioxide (21-32) mmol/L Anion Gap (3-11) BUN (7-18) mg/dl Creatinine (0.6-1.2) mg/dl Est Cr Clr Drug Dosing ml/min Est GFR ( Amer) Est GFR (Non-Af Amer) BUN/Creatinine Ratio (10-20) Glucose (70-99) mg/dl POC Glucose 100 H (70-99) mg/dl Lactate 0.7 (0.4-2.0) mmol/L Calcium (8.5-10.1) mg/dl Phosphorus (2.5-4.9) mg/dl Magnesium (1.8-2.4) mg/dl Total Bilirubin (0.2-1) mg/dl AST (15-37) U/L ALT (12-78) U/L Alkaline Phosphatase (45-117) U/L Total Protein (6.4-8.2) gm/dl Albumin (3.4-5.0) gm/dl Globulin (2.5-4.0) gm/dl Albumin/Globulin Ratio (0.9-2) HCG, Qual Negative (Negative) 07/01/19 07/01/19 07/01/19 Range/Units 16:22 16:22 06:22 WBC 6.92 (4.8-10.8) K/uL RBC 3.46 L (4.2-5.4) M/uL Hgb 10.9 L (12.0-16.0) g/dL Hct 32.2 L (37-47) % MCV 93.1 (80-100) fL MCH 31.5 (25-34) pg MCHC 33.9 (32-36) g/dL RDW Std Deviation 41.1 (36.4-46.3) fL RDW Coeff of Tim 12.1 (11.5-14.5) % Plt Count 231 (130-400) K/uL MPV 10.1 (7.4-10.4) fL Immature Gran % (Auto) 1.0 % Neut % (Auto) 73.0 % Lymph % (Auto) 16.5 % [place] % (Auto) 9.2 % Eos % (Auto) 0.0 % Baso % (Auto) 0.3 % Immature Gran # (Auto) 0.07 H (0.00-0.02) K/uL Neut # (Auto) 5.05 (1.4-6.5) K/uL Lymph # (Auto) 1.14 L (1.2-3.4) K/uL [place] # (Auto) 0.64 H (0.11-0.59) K/uL Eos # (Auto) 0.00 (0-0.5) K/uL Baso # (Auto) 0.02 (0-0.2) K/uL Sodium 141 (136-145) mmol/L Potassium 3.7 D (3.5-5.1) mmol/L Chloride 110 H (98-107) mmol/L Carbon Dioxide 26 (21-32) mmol/L Anion Gap 5.0 (3-11) BUN 12 (7-18) mg/dl Creatinine 0.49 L (0.6-1.2) mg/dl Est Cr Clr Drug Dosing 144.3 ml/min Est GFR ( Amer) > 150.0 Est GFR (Non-Af Amer) 133.5 BUN/Creatinine Ratio 23.5 H (10-20) Glucose 104 H (70-99) mg/dl POC Glucose 98 (70-99) mg/dl Lactate (0.4-2.0) mmol/L Calcium 8.2 L (8.5-10.1) mg/dl Phosphorus 3.0 (2.5-4.9) mg/dl Magnesium 1.8 (1.8-2.4) mg/dl Total Bilirubin 0.2 (0.2-1) mg/dl AST 21 (15-37) U/L ALT 105 H (12-78) U/L Alkaline Phosphatase 53 (45-117) U/L Total Protein 5.9 L (6.4-8.2) gm/dl Albumin 3.3 L (3.4-5.0) gm/dl Globulin 2.6 (2.5-4.0) gm/dl Albumin/Globulin Ratio 1.3 (0.9-2) HCG, Qual (Negative) 07/01/19 07/01/19 07/01/19 Range/Units 05:59 05:59 03:13 WBC 8.20 (4.8-10.8) K/uL RBC 3.24 L (4.2-5.4) M/uL Hgb 10.3 L (12.0-16.0) g/dL Hct 29.8 L (37-47) % MCV 92.0 (80-100) fL MCH 31.8 (25-34) pg MCHC 34.6 (32-36) g/dL RDW Std Deviation 40.9 (36.4-46.3) fL RDW Coeff of Tim 12.0 (11.5-14.5) % Plt Count 225 (130-400) K/uL MPV 10.1 (7.4-10.4) fL Immature Gran % (Auto) 0.5 % Neut % (Auto) 64.7 % Lymph % (Auto) 22.7 % [place] % (Auto) 11.8 % Eos % (Auto) 0.1 % Baso % (Auto) 0.2 % Immature Gran # (Auto) 0.04 H (0.00-0.02) K/uL Neut # (Auto) 5.30 (1.4-6.5) K/uL Lymph # (Auto) 1.86 (1.2-3.4) K/uL [place] # (Auto) 0.97 H (0.11-0.59) K/uL Eos # (Auto) 0.01 (0-0.5) K/uL Baso # (Auto) 0.02 (0-0.2) K/uL Sodium 143 (136-145) mmol/L Potassium 3.1 L (3.5-5.1) mmol/L Chloride 110 H (98-107) mmol/L Carbon Dioxide 26 (21-32) mmol/L Anion Gap 6.0 (3-11) BUN 12 (7-18) mg/dl Creatinine 0.46 L (0.6-1.2) mg/dl Est Cr Clr Drug Dosing 153.7 ml/min Est GFR ( Amer) > 150.0 Est GFR (Non-Af Amer) 136.3 BUN/Creatinine Ratio 25.4 H (10-20) Glucose 94 (70-99) mg/dl POC Glucose 108 H (70-99) mg/dl Lactate (0.4-2.0) mmol/L Calcium 8.2 L (8.5-10.1) mg/dl Phosphorus 2.1 L D (2.5-4.9) mg/dl Magnesium 1.8 (1.8-2.4) mg/dl Total Bilirubin 0.2 (0.2-1) mg/dl AST 25 (15-37) U/L ALT 112 H (12-78) U/L Alkaline Phosphatase 52 (45-117) U/L Total Protein 5.4 L (6.4-8.2) gm/dl Albumin 3.0 L (3.4-5.0) gm/dl Globulin 2.4 L (2.5-4.0) gm/dl Albumin/Globulin Ratio 1.3 (0.9-2) HCG, Qual (Negative) 07/01/19 Range/Units 01:44 WBC (4.8-10.8) K/uL RBC (4.2-5.4) M/uL Hgb (12.0-16.0) g/dL Hct (37-47) % MCV (80-100) fL MCH (25-34) pg MCHC (32-36) g/dL RDW Std Deviation (36.4-46.3) fL RDW Coeff of Tim (11.5-14.5) % Plt Count (130-400) K/uL MPV (7.4-10.4) fL Immature Gran % (Auto) % Neut % (Auto) % Lymph % (Auto) % [place] % (Auto) % Eos % (Auto) % Baso % (Auto) % Immature Gran # (Auto) (0.00-0.02) K/uL Neut # (Auto) (1.4-6.5) K/uL Lymph # (Auto) (1.2-3.4) K/uL [place] # (Auto) (0.11-0.59) K/uL Eos # (Auto) (0-0.5) K/uL Baso # (Auto) (0-0.2) K/uL Sodium (136-145) mmol/L Potassium (3.5-5.1) mmol/L Chloride (98-107) mmol/L Carbon Dioxide (21-32) mmol/L Anion Gap (3-11) BUN (7-18) mg/dl Creatinine (0.6-1.2) mg/dl Est Cr Clr Drug Dosing ml/min Est GFR ( Amer) Est GFR (Non-Af Amer) BUN/Creatinine Ratio (10-20) Glucose (70-99) mg/dl POC Glucose 103 H (70-99) mg/dl Lactate (0.4-2.0) mmol/L Calcium (8.5-10.1) mg/dl Phosphorus (2.5-4.9) mg/dl Magnesium (1.8-2.4) mg/dl Total Bilirubin (0.2-1) mg/dl AST (15-37) U/L ALT (12-78) U/L Alkaline Phosphatase (45-117) U/L Total Protein (6.4-8.2) gm/dl Albumin (3.4-5.0) gm/dl Globulin (2.5-4.0) gm/dl Albumin/Globulin Ratio (0.9-2) HCG, Qual (Negative) PG Care Time/CCT Total # of Minutes Spent Total Time Spent with Patient: Total time spent is greater than 50% in coordination of care (as documented) at patient's floor/unit and/or counseling patient: Coding Level of Care Code 12160 Subseq Hosp Care Lvl 3 Diagnoses Abdominal pain R10.9 Nausea and vomiting R11.2 Hypophosphatemia E83.39 Hypocalcemia E83.51 Malabsorption K90.9 Intestinal malabsorption type: unspecified Gastroparesis K31.84 Adrenal insufficiency E27.40 Anemia D64.9 Hypotension I95.9 Sinus tachycardia R00.0 Jejunal intussusception K56.1 Chronic migraine G43.709 Diarrhea K90.9; R19.7 Diarrhea type: due to malabsorption Secondary hyperparathyroidism N25.81 On total parenteral nutrition (TPN) Z78.9 Fever R50.9 Hypokalemia E87.6 DVT prophylaxis Z29.9 (1) Diarrhea Diarrhea type: due to malabsorption Qualified Code(s): K90.9 - Intestinal malabsorption, unspecified; R19.7 - Diarrhea, unspecified (2) Malabsorption Intestinal malabsorption type: unspecified Qualified Code(s): K90.9 - Intestinal malabsorption, unspecified
[2019-07-02] MEDS: ONDANSETRON INJ 2 MG/ML 2 ML VIAL IV PRN ×3 (03:12→19:51)
[2019-07-02] MEDS: HYDROmorphone INJ 0.5 MG/0.5 ML SYR IV PRN ×4 (03:12→19:51)
[2019-07-02 05:45] LABS: Basophils # (auto) 0.02 K/uL (0-0.2); Basophils % (auto) 0.3 %; Eosinophils # (auto) 0.01 K/uL (0-0.5); Eosinophils % (auto) 0.1 %; Hematocrit (blood only) 32.9 % (37-47); Hemoglobin 11.1 g/dL (12.0-16.0); Immature Granulocytes % (auto) 1.3 %; Lymphocytes # (auto) 1.52 K/uL (1.2-3.4); Lymphocytes % (auto) 20.5 %; Mean Corpuscular Hemoglobin 31.4 pg (25-34); Mean Corpuscular Hgb Conc 33.7 g/dL (32-36); Mean Corpuscular Volume 92.9 fL (80-100); Mean Platelet Volume 9.9 fL (7.4-10.4); Monocytes # (auto) 0.98 K/uL (0.11-0.59); Monocytes % (auto) 13.2 %; Neutrophils % (auto) 64.6 %; Platelet Count 254 K/uL (130-400); RDW Standard Deviation 41.1 fL (36.4-46.3); Red Blood Count 3.54 M/uL (4.2-5.4); White Blood Count 7.43 K/uL (4.8-10.8)
[2019-07-02] MEDS: HYDROCORTISONE SOD 25 MG in SYRINGE 0 ML IV SCH (06:06)
[2019-07-02 06:12] LABS: Alanine Aminotransferase 88 U/L (12-78); Albumin Level 3.2 gm/dl (3.4-5.0); Aspartate Aminotransferase 14 U/L (15-37); BUN Creatinine Ratio 31.8 (10-20); Blood Urea Nitrogen 15 mg/dl (7-18); Calcium 8.1 mg/dl (8.5-10.1); Carbon Dioxide 30 mmol/L (21-32); Chloride 107 mmol/L (98-107); Creatinine Clr Calc Pharmacy 147.3 ml/min; Est GFR (African American) > 150.0; Est GFR (Non-African American) 134.4; Glucose 84 mg/dl (70-99); Potassium 3.8 mmol/L (3.5-5.1); Sodium 141 mmol/L (136-145)
[2019-07-02 06:15] LABS: Albumin Globulin Ratio 1.2 (0.9-2); Alkaline Phosphatase 53 U/L (45-117); Bilirubin,Total 0.2 mg/dl (0.2-1); Globulin 2.6 gm/dl (2.5-4.0); Total Protein 5.8 gm/dl (6.4-8.2)
[2019-07-02] MEDS: DICYCLOMINE HCL 20 MG TAB PO PRN ×3 (08:03→23:21)
[2019-07-02] MEDS: DOMPERIDONE 10 MG PO SCH ×3 (08:08→21:05)
[2019-07-02] MEDS: NORETHINDRONE 5 MG TAB PO SCH (08:09)
[2019-07-02] MEDS: POT PHOSPHATE MONOBASIC W/ SOD TAB PO SCH ×4 (08:09→21:05)
[2019-07-02] MEDS: HYDROCORTISONE 10 MG TAB PO SCH (08:10)
[2019-07-02] MEDS: LINACLOTIDE 145 MCG PO SCH ×2 (08:10→21:04)
[2019-07-02] MEDS: PANTOprazole 40 MG TAB PO SCH (08:11)
--- NOTE | 2019-07-02 10:19 | Discharge Summary ---
Date of Service July 02, 2019 Admission HPI Per Admitting Provider 29 y/o F c/o feeling unwell. Pt was d/c'd from [facility] yesterday after being admitted for hypoPhos. On DOD she was feeling quite well. She had tolerated PO. She has abd pain at baseline and her pain on d/c was at its usual. Her phos levels were improving, but not quite WNL, so it was planned that she would have infusions with the MTU with repeat labs to monitor progress. She came to the MTU not feeling well. She ate a bit of cereal this AM but could not finish due to nausea. She has not had any emesis. She felt warm like she had a temp. Temp on arrival to the MTU was WNL, but repeat was mildly elevated at 37.9. BP was WNL, however pt with tachycardia. Since she woke, she has been having increased abd pain over her baseline. It is lower abd. She states that she had been urinating more prior to d/c, but she had been on IVF and when she was at home, this went back to normal. She has had no pain with urination. Pt has diarrhea at baseline. She did have diarrhea today x1 while in the MTU. She states she had more abd pain with it than usual, but otherwise a normal bowel movement. Pt has hx of cdiff and states this was nothing like those bowel movements. Pt notes that she has been somewhat SOB with ambulation today, which was not the case yesterday. Pt denies chest pain, LE pain or swelling. There was an error in the orders and pt did not receive her KPhos today in the MTU. Pt states that she was admitted in November with abd pain and this feel similar. She was started on abx, however workup with neg and it was decided she was most likely to have a viral GE. She was d/c'd without further abx and had no further issues at that time. Of note, WBC was WNL during this admission. Principal Diagnosis Intractable nausea/vomiting and abdominal pain, intestinal dysmotility, jejunal intussusception Discharge Exam Constitutional + underweight; no acute distress Eyes + anicteric sclerae ENMT external ear and nose normal, oropharynx normal Neck trachea midline, no thyromegaly Respiratory normal respiratory effort, lungs clear to auscultation Cardiovascular RRR, no murmur, no edema Chest (Breasts) Chest: normal inspection of chest Gastrointestinal (Abdomen) Inspection/Auscultation: + hypoactive bowel sounds; + abdomen abnormal to inspection (J-tube in place) Percussion/Palpation: + abdomen tender (diffusely) and abdomen soft; no guarding (and no rebound) and abdomen not rigid Musculoskeletal Extremities: extremities normal to inspection; no cyanosis and no clubbing Skin no rashes, warm and dry Neurologic moves all extremities and awake; no focal motor deficits Psychiatric Orientation: alert and oriented x 3 Eye Contact: good eye contact Speech: normal rate/rhythm/volume of speech Affect: + flat affect Lymphatic no lymphedema Discharge Data Allergies Allergy/AdvReac Type Severity Reaction Status Date / Time amoxicillin Allergy Intermediate RASH Verified 06/27/19 12:36 Bactrim Allergy Intermediate RASH Verified 08/13/17 12:16 cefazolin Allergy Intermediate rash Verified 06/27/19 12:36 Cephalosporins Allergy Intermediate HIVES Verified 06/27/19 12:36 clavulanic acid Allergy Intermediate HIVES Verified 06/27/19 12:36 Penicillins Allergy Intermediate HIVES Verified 06/27/19 12:36 prochlorperazine Allergy Intermediate HIVES Verified 06/27/19 12:36 promethazine Allergy Intermediate hives, Verified 06/27/19 12:36 throat swelling sulfamethoxazole Allergy Intermediate RASH Verified 06/27/19 12:36 sumatriptan Allergy Intermediate RASH Verified 06/27/19 12:36 trimethoprim Allergy Intermediate RASH Verified 06/27/19 12:36 diphenhydramine AdvReac Intermediate Tachycardia, Verified 06/27/19 12:36 Severe Anxiety WITH IV ONLY erythromycin base AdvReac Intermediate GI SYMPTOMS Verified 06/27/19 12:36 citalopram [From Celexa] AdvReac Unknown Verified 06/27/19 12:36 MULTIVITAMIN Allergy Unknown Uncoded 06/27/19 12:36 Consultations 06/28/19 10:22 Consult General Surgery Routine 06/28/19 12:43 Consult Gastroenterology Routine 06/29/19 14:40 Burn CD for patient Stat Ordered Studies 06/27/19 19:23 CT abd pelvis IV con only Urgent 07/01/19 16:11 CT abd pelvis IV con only Stat Chest x-ray Hospital Course (1) Abdominal pain: Pt has chronic abd pain at baseline, but became acutely worse the day of admission Diarrhea, which is at baseline, hx of cdiff and states this is not similar- diarrhea has resolved and she has not eaten anything in many many days Pain is mid abdomen mostly but also diffusely UA negative for infection, test negative CXR neg WBC elevated on admission and now improved, with fever after admission that is now resolved CT abd/pel with jejunal-jejunal intussusception near her J-tube, but no evidence of edema or obstruction Blood cx pending-NGTD -was on IV Vanco empirically for fever with port in place-have since discontinued her Vanco on evening of 06/29/19 as BCxs remained no growth Pt admitted in November 2018 with abd pain, intractable N/V and fever almost identical to this admission except CT at that time showed enteritis rather than intussusception She was started on abx, however workup with neg and it was decided she was most likely to have a viral GE. She was d/c'd without further abx and had no further issues at that time. -Consulted Surgery and GI --> no endoscopy or surgery to be done here given complex history and her specialists are at [facility] Surgery [facility], as well as myself have been in touch with pt's specialist at [facility], Dr. aLntigua-> recommend transfer to [place] for further evaluation. Pt accepted and discharge order placed on 06/29 however still awaiting a bed Unclear if abd pain is secondary to the intussusception? Had acute worsening of pain on afternoon of 07/01--> repeat labs including lactate all fine. Repeat STAT CT abd/pel with IV contrast again shows jejunal intussusception around feeding tube but again no bowel edema or obstruction Pain improved with extra doses of dilaudid and with bentyl -continue pain control with IV dilaudid as needed Awaiting transfer to [place] in case of need for specialized surgical intervention Question also if patient has abdominal migraine, cyclical vomiting syndrome given chronic daily headaches?-Recommend evaluation by neurology Furthermore, she has a history of endometriosis-question if this is also playing a role? Could consider [employer] consultation also at [facility] (2) Nausea and vomiting: as above intractable and continues--> has not been able to tolerate anything by mouth in many days although had 1 bite of cream of wheat soup on the morning of 07/02 w hich is the first food she is eaten in 5 days Can vent with J-tube if needed continue Zofran prn -continue IV ativan 0.5mg IV q4h prn which also helps Cannot tolerate reglan or phenergan or compazine On chronic TPN-pharmacy managing (3) Hypophosphatemia: Intermittently low, normal on the day of discharge after replacement -Follow phosphorus level (4) Hypocalcemia: Calcium level low at 7.4 on admission, albumin is normal Replaced with 1 g of IV calcium gluconate and TUMs bid--> today Ca++ is normal when corrected for low albumin -Follow calcium level -dcd TUMS as may be causing binding of phosphorus and poor absorption (5) Malabsorption: s/p jejunostomy TPN as at home she had not had her TPN in 5 days prior to admission-started again on 06/28 and tolerates this intermittently-states that it makes her nauseated at times -LFTs now increased acutely perhaps due to refeeding? Now improving -follow LFTs (6) Gastroparesis: continue home meds of enemas, rectal stimulant system, Motilium, Linzess, senna leaf (7) Adrenal insufficiency: continue home po hydrocortisone 20mg daily -giving stress dosed steroids as above due to hypotension, tachycardia--> BPs and tachycardia have both improved somewhat -She received 4 days of IV hydrocortisone-decreased IV HC to 25mg IV q8h and can stop now (8) Anemia: WNL on admission at 13.4 and down slightly to 10.3 likely hemodilutional- hemoglobin 11.1 on the day of discharge Hx of iron deficiency requiring venofer administration due to absorption issues, pt completed this during recent admission (9) Hypotension: secondary to adrenal insufficiency-improved with IV hydrocortisone -stress dosed steroids as above -was given IVFs and now dc IVFs with transition to TPN (10) Sinus tachycardia: secondary to hypotension, dehydration-resolved with IV hydrocortisone and improvement of hypotension (11) Jejunal intussusception: as above, of unclear significance-not sure if this is actually causing her pain Again present on repeat CT scan on 07/01 without evidence of bowel wall edema or ischemia, no obstruction -around feeding tube Awaiting transfer to [place] to see if needs to be addressed surgically (12) Chronic migraine: gets outpt botox injections pain meds as needed -advised outpt Neuro follow up--> appt made with Dr. Lennon for in August (13) Diarrhea: chronic, has h/o leakage of loose stool around constipation with intestinal dysmotility (14) Secondary hyperparathyroidism: (15) On total parenteral nutrition (TPN): as above Pharmacy managing (16) Fever: as above, unclear source Has port in place BCx NGTD Received IV Vanco for 48 hours and then stopped No fever since the day of admission (17) Hypokalemia: replace in TPN and IV-normal on the day of discharge follow BMP daily (18) SMAS (superior mesenteric artery syndrome): With a history of surgical repair at [facility] several years ago (19) Endometriosis: Now on Mirena IUD and Aygestin daily (20) DVT prophylaxis: Ambulation DIspo- transfer to [facility] as is not improving--> accepting Physician is Dr. Lantigua Still awaiting a bed there since 06/29 Total Time Total Time Spent Total Time Spent (In Minutes): 35 minutes Total Time Includes: Examination of the Patient, Discharge Planning and Medication Reconciliation Discharge Plan Discharge Items Patient Disposition: Transfer Acute Care Hospital Reason For Visit: HYPOPHOSPHATEMIA Discharge Diagnosis: Jejunal-jejunal intussusception, intractable nausea/vomiting and abdominal pain Condition on Discharge: Serious Activity: As commented below Exercise/Sports: As tolerated Non-emergency contact: Primary Care Provider, [employer] and Neurologist Call non-emergency contact if: you have any medication questions, your symptoms worsen, your pain is not controlled, your pain is worsening, your pain is unusual for you and your pain is concerning for you Follow-up/Referrals: Sujey Lennon MD [Physician] - 08/30/19 10:45 am (Please, follow up at [facility] Neurology Office with Dr. Lennon on ThursdayAugust 29 at 11:00 am (arrive 10:45 am). *This is regarding treatment for migraine headaches. The office is located at [address] in [place]. If you need to change this appointment, call the office at [phone].) Mariah Addison DO [Primary Care Provider] - Diet: Clear liquid Diet Comment: NPO Addtl Attending Provider Instructions: Transferred to [facility] Pending Studies at Discharge: No Stand-Alone Forms: My [facility] Skilled Items Patient informed of condition?: Yes DNR: No Discharge Level of Care: Other Communicable Disease: No Discharge Prognosis: Stable Lines: [place] Urinary Catheter: No Medications and DC Order Prescriptions: Continued famotidine [Pepcid] 20 mg tablet 20 mg PO BID RF: 0 polyethylene glycol 3350 [Miralax] 17 gram Powder In Packet 17 g PO DAILY PRN (Reason: Constipation) RF: 0 calcium carbonate [Tums] 200 mg calcium (500 mg) Tablet,Chewable 400 mg PO BID PRN (Reason: Acid Reflux) RF: 0 Mirena 20 mcg/24 hours (5 yrs) 52 mg Intrauterine Device 20 mcg INTRAUTERINE UD RF: 0 senna leaf Tea 180 ml PO DAILY PRN (Reason: Constipation) RF: 0 cetirizine [Zyrtec] 10 mg Tablet 10 mg PO HS RF: 0 ondansetron HCl [Zofran] 4 mg Tablet 4 mg PO Q6 PRN (Reason: Nausea) RF: 0 pantoprazole [Protonix] 40 mg Tablet,Delayed Release (Dr/Ec) 40 mg PO QAM RF: 0 hyoscyamine sulfate 0.125 mg Tablet, Sublingual 0.125 mg SUBLINGUAL Q4 PRN (Reason: Abdominal Discomfort) RF: 0 hydrocortisone 20 mg Tablet 20 mg PO QAM RF: 0 norethindrone acetate 5 mg Tablet 2.5 mg PO QAM RF: 0 albuterol sulfate [ProAir HFA] 90 mcg/actuation Hfa Aerosol Inhaler 2 puff INHALATION QID PRN (Reason: Shortness Of Breath Or Wheezing) RF: 0 dicyclomine 10 mg Capsule 20 mg PO Q6 PRN (Reason: Abdominal Pain) RF: 0 trimethobenzamide 300 mg Capsule 300 mg PO TID PRN (Reason: Nausea) RF: 0 azelastine 0.15 % (205.5 mcg) [place],Non-Aerosol 1 - 2 spray INTRANASAL BID PRN (Reason: Congestion) RF: 0 Linzess 145 mcg Capsule 145 mcg PO BID RF: 0 Motillium 1 tab PO TID RF: 0 Phospha 250 Neutral 250 mg Tablet 1 tab PO QID 14 Days Qty: 56 RF: 1 Discharge Orders: Discharge Order (Routine); Ordered 06/29/19 Ordered By: Vicky Drew Admission Data Admit Date/Time: 06/28/19 17:36 Attending Provider: Vicky Drew Admit Provider: Debo Weldon Primary Care Provider: Mariah Addison Other Providers: Sukhjinder Dickinson ; Candido Fernández Coding Level of Care Code D/C Day Management >30 mins Diagnoses Abdominal pain R10.9 Nausea and vomiting R11.2 Hypophosphatemia E83.39 Hypocalcemia E83.51 Malabsorption K90.9 Intestinal malabsorption type: unspecified Gastroparesis K31.84 Adrenal insufficiency E27.40 Anemia D64.9 Hypotension I95.9 Sinus tachycardia R00.0 Jejunal intussusception K56.1 Chronic migraine G43.709 Diarrhea K90.9; R19.7 Diarrhea type: due to malabsorption Secondary hyperparathyroidism N25.81 On total parenteral nutrition (TPN) Z78.9 Fever R50.9 Hypokalemia E87.6 SMAS (superior mesenteric artery syndrome) K55.1 Endometriosis N80.9 DVT prophylaxis Z29.9
[2019-07-02] MEDS: LORazepam 0.5 MG/1 ML VIAL IV PRN ×2 (14:10→22:41)
[2019-07-02] MEDS ORDERED: CENTRAL PN IV SCH (16:00)
[2019-07-02] MEDS ORDERED: TPN IV SCH (16:00)
[2019-07-02] MEDS: CETIRIZINE HCL 10 MG TABLET PO SCH (21:06)
[2019-07-02] MEDS: HYOSCYAMINE SULFATE 0.125 MG TAB SL PRN (23:21)
[2019-07-03] MEDS: HYDROmorphone INJ 0.5 MG/0.5 ML SYR IV PRN ×2 (00:12→07:14)
[2019-07-03 05:55] LABS: Basophils # (auto) 0.03 K/uL (0-0.2); Basophils % (auto) 0.3 %; Eosinophils # (auto) 0.07 K/uL (0-0.5); Eosinophils % (auto) 0.8 %; Hematocrit (blood only) 34.3 % (37-47); Hemoglobin 11.7 g/dL (12.0-16.0); Immature Granulocytes % (auto) 1.1 %; Lymphocytes % (auto) 35.2 %; Mean Corpuscular Hemoglobin 31.7 pg (25-34); Mean Corpuscular Hgb Conc 34.1 g/dL (32-36); Mean Platelet Volume 9.7 fL (7.4-10.4); Monocytes # (auto) 0.95 K/uL (0.11-0.59); Monocytes % (auto) 10.5 %; Neutrophils # (auto) 4.74 K/uL (1.4-6.5); Neutrophils % (auto) 52.1 %; Nucleated RBC # (auto) 0.02 K/uL (0-0); Nucleated RBC % (auto) 0.2 %; Platelet Count 308 K/uL (130-400); RDW Coefficient of Variation 12.3 % (11.5-14.5); RDW Standard Deviation 41.7 fL (36.4-46.3); Red Blood Count 3.69 M/uL (4.2-5.4); White Blood Count 9.09 K/uL (4.8-10.8)
[2019-07-03 06:23] LABS: Albumin Level 3.3 gm/dl (3.4-5.0); BUN Creatinine Ratio 28.3 (10-20); Calcium 8.3 mg/dl (8.5-10.1); Creatinine Clr Calc Pharmacy 117.4 ml/min; Est GFR (African American) 144.8; Est GFR (Non-African American) 124.9; Potassium 3.7 mmol/L (3.5-5.1)
[2019-07-03 06:26] LABS: Albumin Globulin Ratio 1.3 (0.9-2); Bilirubin,Total 0.3 mg/dl (0.2-1); Globulin 2.5 gm/dl (2.5-4.0); Total Protein 5.8 gm/dl (6.4-8.2)
[2019-07-03] MEDS: ONDANSETRON INJ 2 MG/ML 2 ML VIAL IV PRN (07:14)
== END 2019-07-03 07:38 | disposition short-term general hospital (02) | DRG 389 ==
LOC: 2S → SUATTDRO 15:00

== ENCOUNTER 2019-07-12 21:07 | Inpatient (IN) ==
[2019-07-12] MEDS ORDERED: ONDANSETRON INJ 2 MG/ML 2 ML VIAL ONE (22:22)
[2019-07-12] MEDS ORDERED: HYDROmorphone INJ 0.5 MG/0.5 ML SYR ONE (22:27)
[2019-07-12] MEDS ORDERED: SODIUM CHLORIDE 0.9% 1000ML 1,000 ML IV ONE (22:27)
[2019-07-12] MEDS ORDERED: LORazepam 1 MG/2 ML VIAL IV STA (22:35)
[2019-07-12 22:41] LABS: Basophils # (auto) 0.02 K/uL (0-0.2); Basophils % (auto) 0.3 %; Eosinophils # (auto) 0.01 K/uL (0-0.5); Eosinophils % (auto) 0.1 %; Hematocrit (blood only) 35.1 % (37-47); Hemoglobin 11.6 g/dL (12.0-16.0); Immature Granulocytes # (auto) 0.03 K/uL (0.00-0.02); Immature Granulocytes % (auto) 0.4 %; Lymphocytes # (auto) 1.43 K/uL (1.2-3.4); Lymphocytes % (auto) 18.2 %; Mean Corpuscular Hemoglobin 31.7 pg (25-34); Mean Corpuscular Volume 95.9 fL (80-100); Mean Platelet Volume 11.5 fL (7.4-10.4); Monocytes # (auto) 0.87 K/uL (0.11-0.59); Monocytes % (auto) 11.1 %; Neutrophils # (auto) 5.51 K/uL (1.4-6.5); Neutrophils % (auto) 69.9 %; Platelet Count 242 K/uL (130-400); RDW Coefficient of Variation 13.1 % (11.5-14.5); RDW Standard Deviation 45.2 fL (36.4-46.3); Red Blood Count 3.66 M/uL (4.2-5.4); White Blood Count 7.87 K/uL (4.8-10.8)
[2019-07-12 22:52] LABS: Alanine Aminotransferase 23 U/L (12-78); Albumin Level 3.8 gm/dl (3.4-5.0); Aspartate Aminotransferase 15 U/L (15-37); BUN Creatinine Ratio 12.9 (10-20); Blood Urea Nitrogen 8 mg/dl (7-18); C Reactive Protein < 0.29 mg/dl (0-0.29); Calcium 8.2 mg/dl (8.5-10.1); Carbon Dioxide 22 mmol/L (21-32); Chloride 115 mmol/L (98-107); Est GFR (Non-African American) 121.7; Glucose 91 mg/dl (70-99); Lipase 1106 U/L (73-393); Magnesium 1.8 mg/dl (1.8-2.4); Potassium 3.6 mmol/L (3.5-5.1); Sodium 142 mmol/L (136-145)
[2019-07-12 22:54] LABS: Pregnancy Test, Serum Negative (Negative)
[2019-07-12 23:05] LABS: Albumin Globulin Ratio 1.5 (0.9-2); Alkaline Phosphatase 43 U/L (45-117); Bilirubin,Total 0.2 mg/dl (0.2-1); Globulin 2.5 gm/dl (2.5-4.0); Phosphorus 1.3 mg/dl (2.5-4.9); Total Protein 6.3 gm/dl (6.4-8.2)
[2019-07-12 23:28] LABS: Appearance Urine Clear (Clear); Bilirubin Urine Negative (Negative); Blood Urine Negative (Negative); Color Urine Yellow; Glucose Urine UA Negative (Negative); Ketones Urine Negative (Negative); Leukocyte Esterase Urine Negative (Negative); Nitrite Urine Negative (Negative); Protein Urine Negative (Negative); Specific Gravity Urine 1.011 (1.000-1.030); Urobilinogen Urine Negative (Negative)
[2019-07-12] MEDS ORDERED: POTASSIUM PHOSPHATE 15 MMOL in SODIUM CHLORIDE 0.9% 250 ML IV STA (23:29)
[2019-07-12] MEDS: HYDROmorphone INJ 0.5 MG/0.5 ML SYR IV PRN (23:49)
--- NOTE | 2019-07-13 00:34 | Emergency Department Note ---
Entered by Deborah Santana acting as a scribe for ED Provider Note CHIEF COMPLAINT: Abdominal pain HISTORY OF PRESENT ILLNESS: The patient is a 29 year old female who presents to the Emergency Room with complaints of abdominal pain. She was seen here in the ED two weeks ago and was admitted to the hospital, then was transferred to and discharged from [facility] and had a procedure there for her known intussusception on Thursday. 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 She does have both a G and J tube in place. Her Mom states they are unsure what caused the intussusception, but the patient has had multiple surgeries for endometriosis in the past, which may have contributed. She does have intermittent constipation and diarrhea. Pt denies LOC, headache, fevers, chills, diaphoresis, visual changes, neck pain, chest pain, breathing difficulties, back pain, melena, hematochezia, urinary symptoms, numbness, weakness, lymphadenopathy, rash, or other complaints. REVIEW OF SYSTEMS: See HPI for pertinent positives and negatives. A total of ten systems were reviewed and were otherwise negative. PMHx/PSHx: Endometriosis. Jejunal intussusception. Hyperparathyroidism. Crohn's disease. SMAS. SOCIAL HISTORY: Patient lives at home. PHYSICAL EXAM: GENERAL: Awake, alert, uncomfortable-appearing, moaning and in moderate distress HENT: Normocephalic, atraumatic. Oropharynx unremarkable. EYES: PERRL. Normal conjunctiva. Sclera non-icteric. NECK: Inspection normal. Non-tender. Supple. No nuchal rigidity. FROM. No masses. RESPIRATORY: Clear to auscultation. No wheezes. No rales. Normal respiratory effort. CARDIAC: Normal rate. Normal rhythm. No murmurs. No rubs. Extremities warm and well perfused. Pulses equal. No JVD. GI: Soft, non-distended. Diffuse tenderness to palpation. Ostomy tube in LUQ. No rebound or guarding. No masses. RECTAL: Deferred. MUSCULOSKELETAL: Atraumatic. Chest examination reveals no tenderness. Port in left upper chest. The back is symmetrical on inspection without obvious abnormality. There is no CVA tenderness to palpation. No joint edema. LOWER EXTREMITIES: Calves are equal size bilaterally and non-tender. No edema. No discoloration. NEURO: Normal sensorium. No sensory or motor deficits noted. SKIN: No rash or jaundice noted. EMERGENCY DEPARTMENT COURSE: 2231: Past medical records reviewed. The patient was evaluated in room C8, and a complete history and physical examination were performed. 2326: I spoke with the Pharmacy. They will dose Phosphorus for the patient. 2340: I reevaluated the patient. I discussed her results and my recommendation she remain in the hospital for further evaluation and management and she is agreeable with the plan. MEDICAL DECISION MAKING: Prior records/ancillary studies reviewed. Patient had a prolonged hospital course here and then was transferred [place] due to jejunal intussusception. Triage Nursing notes reviewed and agree them. Additional history obtained from patient's mother. The patient's history was concerning for abdominal pain. Differential diagnosis: Etiologies such as intussusception, appendicitis, diverticulitis, PUD, biliary pathology, UTI, pancreatitis, obstruction, mesenteric ischemia, aortic pathology, infections, inflammatory bowel disease, renal colic, as well as others were entertained. Physical examination findings: As above. Patient was very uncomfortable ER treatment provided: IV Dilaudid times multiple doses IV Zofran IV Ativan Normal saline hydration On reassessment the patient felt better. IV phosphorus repletion after consultation with pharmacy Diagnostics interpreted by me: The labs revealed an unremarkable CBC except for anemia which is stable. Chemistry panel was unremarkable. Phosphorus very low at 1.3. LFTs unremarkable but lipase elevated concerning for pancreatitis. Imaging studies: CT scan of the abdomen pelvis revealed an enteritis. No evidence of obstruction or intussusception. Patient appears to have pancreatitis. She has an enteritis on CT imaging but no evidence of obstruction or intussusception. Patient will need further management in the hospital. Consultation: A consultation was placed with the [facility] hospitalist. The case was discussed and diagnostics were reviewed. The patient was evaluated in the ER for further treatment. IMPRESSION: Pancreatitis. Enteritis. Hypophosphatemia. Nausea and vomiting. Generalized abdominal pain. PLAN: Admit The scribe's documentation has been prepared under my direction and personally reviewed by me in its entirety. I confirm that the note above accurately reflects all work, treatment, procedures, and medical decision making performed by me. Impression & Plan Pancreatitis, Nausea and vomiting, Hypophosphatemia, Enteritis, Generalized abdominal pain Past Med/Surg History Surgical History H/O adenoidectomy (Resolved) H/O laparoscopy (Resolved) H/O lumpectomy (Resolved) History of appendectomy History of vascular access device Hx of tonsillectomy (Resolved) S/P cholecystectomy S/P wrist surgery (Resolved) Social History Preferred Language: Greenlandic Communication Ability: Effective Search Manager Required: No Beliefs That Will Affect Care: None marital status: single Current Living Situation: Parent current occupational status: unemployed Feels Safe at Home: Yes Smoking Status: Never smoker Hx Alcohol Use: No Hx Substance Use: No Results & Data Vital Signs Vital Signs - 24 hr 07/12/19 21:09 07/12/19 23:21 Temperature 36.9 C Temperature Source Oral Pulse Rate 101 H Pulse Rate [Left Finger] 88 Respiratory Rate 22 18 Respiratory Effort / Characteristics Non-Labored Respiratory Depth Normal Respiratory Pattern Regular Blood Pressure 103/71 Blood Pressure [Right Arm] 106/66 Blood Pressure Mean 81 Blood Pressure Mean [Right Arm] 79 Blood Pressure Position [Right Arm] Sitting Pulse Oximetry 99 98 Oxygen Delivery Method Room Air Room Air Sepsis Recent Fever Within 48 Hours No Sepsis Action Taken by Nursing No Action Required Home Medications Current Medication List: was personally reviewed by me Laboratory Data Attestation: I reviewed the patient's lab results. Result diagrams: 07/12/19 21:36 07/12/19 21:36 Lab Results 07/12/19 07/12/19 07/12/19 Range/Units 21:36 21:36 21:36 WBC 7.87 (4.8-10.8) K/uL RBC 3.66 L (4.2-5.4) M/uL Hgb 11.6 L (12.0-16.0) g/dL Hct 35.1 L (37-47) % MCV 95.9 (80-100) fL MCH 31.7 (25-34) pg MCHC 33.0 (32-36) g/dL RDW Std Deviation 45.2 (36.4-46.3) fL RDW Coeff of Tim 13.1 (11.5-14.5) % Plt Count 242 (130-400) K/uL MPV 11.5 H (7.4-10.4) fL Immature Gran % (Auto) 0.4 % Neut % (Auto) 69.9 % Lymph % (Auto) 18.2 % [place] % (Auto) 11.1 % Eos % (Auto) 0.1 % Baso % (Auto) 0.3 % Immature Gran # (Auto) 0.03 H (0.00-0.02) K/uL Neut # (Auto) 5.51 (1.4-6.5) K/uL Lymph # (Auto) 1.43 (1.2-3.4) K/uL [place] # (Auto) 0.87 H (0.11-0.59) K/uL Eos # (Auto) 0.01 (0-0.5) K/uL Baso # (Auto) 0.02 (0-0.2) K/uL Sodium 142 (136-145) mmol/L Potassium 3.6 (3.5-5.1) mmol/L Chloride 115 H (98-107) mmol/L Carbon Dioxide 22 (21-32) mmol/L Anion Gap 6.0 (3-11) BUN 8 (7-18) mg/dl Creatinine 0.65 (0.6-1.2) mg/dl Est Cr Clr Drug Dosing Not Reportable Est GFR ( Amer) 141.0 Est GFR (Non-Af Amer) 121.7 BUN/Creatinine Ratio 12.9 (10-20) Glucose 91 (70-99) mg/dl Calcium 8.2 L (8.5-10.1) mg/dl Phosphorus 1.3 L* (2.5-4.9) mg/dl Magnesium 1.8 (1.8-2.4) mg/dl Total Bilirubin 0.2 (0.2-1) mg/dl AST 15 (15-37) U/L ALT 23 (12-78) U/L Alkaline Phosphatase 43 L (45-117) U/L C-Reactive Protein < 0.29 (0-0.29) mg/dl Total Protein 6.3 L (6.4-8.2) gm/dl Albumin 3.8 (3.4-5.0) gm/dl Globulin 2.5 (2.5-4.0) gm/dl Albumin/Globulin Ratio 1.5 (0.9-2) Lipase 1106 H (73-393) U/L HCG, Qual Negative (Negative) Specimen Hemolysis Urine Color Urine Appearance (Clear) Urine pH (4.5-7.5) Ur Specific [place] (1.000-1.030) Urine Protein (Negative) Urine Glucose (UA) (Negative) Urine Ketones (Negative) Urine Blood (Negative) Urine Nitrite (Negative) Urine Bilirubin (Negative) Urine Urobilinogen (Negative) Ur Leukocyte Esterase (Negative) 07/12/19 Range/Units 23:00 WBC (4.8-10.8) K/uL RBC (4.2-5.4) M/uL Hgb (12.0-16.0) g/dL Hct (37-47) % MCV (80-100) fL MCH (25-34) pg MCHC (32-36) g/dL RDW Std Deviation (36.4-46.3) fL RDW Coeff of Tim (11.5-14.5) % Plt Count (130-400) K/uL MPV (7.4-10.4) fL Immature Gran % (Auto) % Neut % (Auto) % Lymph % (Auto) % [place] % (Auto) % Eos % (Auto) % Baso % (Auto) % Immature Gran # (Auto) (0.00-0.02) K/uL Neut # (Auto) (1.4-6.5) K/uL Lymph # (Auto) (1.2-3.4) K/uL [place] # (Auto) (0.11-0.59) K/uL Eos # (Auto) (0-0.5) K/uL Baso # (Auto) (0-0.2) K/uL Sodium (136-145) mmol/L Potassium (3.5-5.1) mmol/L Chloride (98-107) mmol/L Carbon Dioxide (21-32) mmol/L Anion Gap (3-11) BUN (7-18) mg/dl Creatinine (0.6-1.2) mg/dl Est Cr Clr Drug Dosing Est GFR ( Amer) Est GFR (Non-Af Amer) BUN/Creatinine Ratio (10-20) Glucose (70-99) mg/dl Calcium (8.5-10.1) mg/dl Phosphorus (2.5-4.9) mg/dl Magnesium (1.8-2.4) mg/dl Total Bilirubin (0.2-1) mg/dl AST (15-37) U/L ALT (12-78) U/L Alkaline Phosphatase (45-117) U/L C-Reactive Protein (0-0.29) mg/dl Total Protein (6.4-8.2) gm/dl Albumin (3.4-5.0) gm/dl Globulin (2.5-4.0) gm/dl Albumin/Globulin Ratio (0.9-2) Lipase (73-393) U/L HCG, Qual (Negative) Specimen Hemolysis Urine Color Yellow Urine Appearance Clear (Clear) Urine pH 8.0 H (4.5-7.5) Ur Specific [place] 1.011 (1.000-1.030) Urine Protein Negative (Negative) Urine Glucose (UA) Negative (Negative) Urine Ketones Negative (Negative) Urine Blood Negative (Negative) Urine Nitrite Negative (Negative) Urine Bilirubin Negative (Negative) Urine Urobilinogen Negative (Negative) Ur Leukocyte Esterase Negative (Negative) Administered Medications Hydromorphone HCl (Dilaudid) 0.5 mg IV Q15M PRN PRN Reason: Pain Stop: 07/26/19 22:26 Last Admin: 07/12/19 23:49 Dose: 0.5 mg Documented by: [id number] Potassium Phosphate 15 mmol/ (Sodium Chloride) 255 mls @ 100 mls/hr IV ONE STA Stop: 07/13/19 02:01 Last Admin: 07/12/19 23:49 Dose: 100 mls/hr Documented by: [id number] Discontinued Medications Hydromorphone HCl (Dilaudid) Confirm Administered Dose 0.5 mg .ROUTE .STK-MED ONE Stop: 07/12/19 22:28 Last Admin: 07/12/19 22:39 Dose: 0.5 mg Documented by: [id number] Sodium Chloride (Nss 1000ml) 1,000 mls @ 999 mls/hr IV .Q1H1M ONE Stop: 07/12/19 23:27 Last Admin: 07/12/19 22:48 Dose: 999 mls/hr Documented by: [id number] Lorazepam (Ativan) 1 mg in 2 mls @ 2 mls/min IV NOW STA Stop: 07/12/19 22:36 Last Admin: 02/25/20 22:48 Dose: 2 mls/min Documented by: [id number] Ondansetron HCl (Zofran) Confirm Administered Dose 4 mg .ROUTE .STK-MED ONE Stop: 07/12/19 22:23 Last Admin: 07/12/19 22:39 Dose: 4 mg Documented by: [id number] Imaging Data Radiologist's Impression: Radiology results as stated below per my review and the radiologist's interpretation: CT ABDOMEN & PELVIS Without Contrast: Comparison:CT abdomen and pelvis 07/01/19. Percutaneous gastrojejunostomytube in place. No bowel obstruction. Fluid-filled small bowel loops, possiblynonspecific enteritis. Appendix not visualized, possiblysurgicallyabsent. Cholecystectomy. No biliarydilatation. Unenhanced appearance of the liver, spleen, pancreas, adrenal glands, and kidneys is unremarkable. IUD in uterus. Decompressed urinarybladder. No acute osseous findings. Radiologist: Jeanie Belcher M.D. Blood Pressure Blood Pressure Findings: Normal blood pressure Blood Pressure Disposition: did not require urgent referral Discharge Plan Visit Data Chief Complaint: Abdominal Pain Stated Complaint: VOMITING ED Provider: Denny Hoover Discharge Problem: Pancreatitis, Nausea and vomiting, Hypophosphatemia, Enteritis, Generalized ab dominal pain Patient Disposition: Being Evaluated by Hospitalist Forms Stand Alone Forms: My [facility] Prescriptions Prescriptions: No Action famotidine [Pepcid] 20 mg tablet 20 mg PO BID RF: 0 polyethylene glycol 3350 [Miralax] 17 gram Powder In Packet 17 g PO DAILY PRN (Reason: Constipation) RF: 0 calcium carbonate [Tums] 200 mg calcium (500 mg) Tablet,Chewable 400 mg PO BID PRN (Reason: Acid Reflux) RF: 0 senna leaf Tea 180 ml PO DAILY PRN (Reason: Constipation) RF: 0 cetirizine [Zyrtec] 10 mg Tablet 10 mg PO HS RF: 0 ondansetron HCl [Zofran] 4 mg Tablet 4 mg PO Q6 PRN (Reason: Nausea) RF: 0 pantoprazole [Protonix] 40 mg Tablet,Delayed Release (Dr/Ec) 40 mg PO QAM RF: 0 hyoscyamine sulfate 0.125 mg Tablet, Sublingual 0.125 mg SUBLINGUAL Q4 PRN (Reason: Abdominal Discomfort) RF: 0 norethindrone acetate 5 mg Tablet 2.5 mg PO QAM RF: 0 albuterol sulfate [ProAir HFA] 90 mcg/actuation Hfa Aerosol Inhaler 2 puff INHALATION QID PRN (Reason: Shortness Of Breath Or Wheezing) RF: 0 dicyclomine 10 mg Capsule 20 mg PO Q6 PRN (Reason: Abdominal Pain) RF: 0 trimethobenzamide 300 mg Capsule 300 mg PO TID PRN (Reason: Nausea) RF: 0 azelastine 0.15 % (205.5 mcg) [place],Non-Aerosol 1 - 2 spray INTRANASAL BID PRN (Reason: Congestion) RF: 0 Linzess 145 mcg Capsule 145 mcg PO BID RF: 0 Phospha 250 Neutral 250 mg Tablet 1 tab PO QID 14 Days Qty: 56 RF: 1 hydrocortisone 10 mg tablet See Rx Instructions .ROUTE .COMPLEX RF: 0 Mirena 20 mcg/24 hours (5 yrs) 52 mg Intrauterine Device 20 mcg INTRAUTERINE CONTINOUS RF: 0 tretinoin 0.05 % cream 1 applic TOPICAL UD RF: 0 Referrals Referrals: Mariah Addison, [Primary Care Provider] - The scribe's documentation has been prepared under my direction and personally reviewed by me in its entirety. I confirm that the note above accurately reflects all work, treatment, procedures, and medical decision making performed by me.
[2019-07-13] MEDS ORDERED: SODIUM PHOSPHATE 3 MMOL/1 ML INFUSION IV STA (01:20)
[2019-07-13] MEDS ORDERED: ONDANSETRON INJ 2 MG/ML 2 ML VIAL ONE (01:51)
[2019-07-13] MEDS: HYDROmorphone INJ 0.5 MG/0.5 ML SYR IV PRN ×7 (01:54→18:50)
[2019-07-13] MEDS ORDERED: DICYCLOMINE HCL 10 MG CAP PO PRN (02:51)
[2019-07-13] MEDS ORDERED: LEVONORGESTREL (MIRENA) IUD PV SCH (02:51)
[2019-07-13] MEDS ORDERED: ONDANSETRON 4 MG OD TAB PO PRN (02:51)
[2019-07-13] MEDS ORDERED: MAGNESIUM HYDROXIDE SUSP 30 ML UDC PO PRN (02:51)
[2019-07-13] MEDS ORDERED: POLYETHYLENE (MIRALAX) 17 GM PACK PO PRN (02:51)
[2019-07-13] MEDS ORDERED: ACETAMINOPHEN 325 MG TAB PO PRN (02:51)
[2019-07-13] MEDS ORDERED: ALUMINUM/MAGNESIUM SUSP 30 ML UDC PO PRN (02:51)
[2019-07-13] MEDS ORDERED: NON-FORMULARY MEDICATION (Tretinoin 1 APPLN) TOP SCH (02:51)
[2019-07-13] MEDS ORDERED: SODIUM PHOSPHATE 40 MMOL in SODIUM CHLORIDE 0.9% 1000ML 1,000 ML IV ONE (03:15)
--- NOTE | 2019-07-13 04:26 | History & Physical Report ---
Date of Service July 13, 2019 Assessment & Plan (1) Nausea and vomiting: Recurrent nausea vomiting, abdominal pain, enteritis- Treat symptomatically with IV Zofran and Compazine. Continue her usual outpatient regimen. Present on Admission?: Yes (2) Pancreatitis: See above with mildly elevated lipase of 1106 suggestive of pancreatitis Follow serial enzymes. We had to review chart discussed with patient and mother if she has been on pancreatic enzymes in the past Present on Admission?: Yes (3) Enteritis: See above Present on Admission?: Yes (4) Generalized abdominal pain: See above Present on Admission?: Yes (5) Secondary hyperparathyroidism: Secondary hyperparathyroidism/hypocalcemia/hypophosphatemia/history of GI malabsorption- Consult nephrology for opinion. Would have to review records to see if she has had any urine studies done to assess for electrolyte and mineral loss. Present on Admission?: Yes (6) Hypocalcemia: Was told at last admission by staff to take Tums with calcium Present on Admission?: Yes (7) Hypophosphatemia: Will replace with both oral and IV supplementation Present on Admission?: Yes (8) Abdominal pain: Abdominal pain overall similar to previous. Patient was noted to have mildly elevated lipase, with unclear significance. Consult GI for their opinion. Present on Admission?: Yes (9) Malabsorption: Multifactorial Present on Admission?: Yes (10) Jejunal intussusception: Resolved after surgical procedure at recent hospitalization Present on Admission?: Yes (11) Gastroparesis: Continue Linzess Present on Admission?: Yes (12) Sphincter of Oddi spasm: Noted as a cause of some of her symptoms Present on Admission?: Yes (13) Jejunostomy tube in situ: Not currently being used Present on Admission?: Yes (14) Adrenal insufficiency: Due to recurrent admissions, place on stress dose hydrocortisone 100 mg IV every 8 hours Present on Admission?: Yes (15) SMAS (superior mesenteric artery syndrome): Following with [facility] GI Present on Admission?: Yes (16) Crohn's disease: Following with [facility] GI Present on Admission?: Yes History of Present Illness Chief Complaint: The patient presents to the emergency department with complaint of abdominal pain. Primary Care Provider: Mariah Addison, DO The patient is a 29-year-old female with a past medical history including anemia, gastroparesis, sphincter of Oddi spasm, jejunostomy tube in situ, TPN, adrenal insufficiency, hypophosphatemia, intestinal dysmotility, asthma, SMA syndrome, Crohn's disease and hemorrhagic cystitis. Most recent hospitalizations are from 06/24-06/26, and then 06/27-07/02/2019. She has been seen by Dr. Fernández from GI locally, and follows with GI at [facility]. Her work- up this time includes an abnormal lipase of 1106, which is not been noted before. Her other persistent issue has been low phosphorus, with a value today of 1.3. Allergies Allergy/AdvReac Type Severity Reaction Status Date / Time amoxicillin Allergy Intermediate RASH Verified 07/12/19 23:40 Bactrim Allergy Intermediate RASH Verified 08/13/17 12:16 cefazolin Allergy Intermediate rash Verified 07/12/19 23:40 Cephalosporins Allergy Intermediate HIVES Verified 07/12/19 23:40 clavulanic acid Allergy Intermediate HIVES Verified 07/12/19 23:40 Penicillins Allergy Intermediate HIVES Verified 07/12/19 23:40 prochlorperazine Allergy Intermediate HIVES Verified 07/12/19 23:40 promethazine Allergy Intermediate hives, Verified 07/12/19 23:40 throat swelling sulfamethoxazole Allergy Intermediate RASH Verified 07/12/19 23:40 sumatriptan Allergy Intermediate RASH Verified 07/12/19 23:40 trimethoprim Allergy Intermediate RASH Verified 07/12/19 23:40 diphenhydramine AdvReac Intermediate Tachycardia, Verified 07/12/19 23:40 Severe Anxiety WITH IV ONLY erythromycin base AdvReac Intermediate GI SYMPTOMS Verified 07/12/19 23:40 citalopram [From Celexa] AdvReac Unknown Verified 07/12/19 23:40 MULTIVITAMIN Allergy Unknown Uncoded 07/12/19 23:40 Home Medications Home Medications Medication Instructions Recorded Confirmed Type Linzess 145 mcg PO BID 03/07/18 07/12/19 History albuterol sulfate [ProAir HFA] 2 puff INHALATION QID PRN 03/07/18 07/12/19 History azelastine 1 - 2 spray INTRANASAL BID PRN 03/07/18 07/12/19 History cetirizine [Zyrtec] 10 mg PO HS 03/07/18 07/12/19 History dicyclomine 20 mg PO Q6 PRN 03/07/18 07/12/19 History hyoscyamine sulfate 0.125 mg SUBLINGUAL Q4 PRN 03/07/18 07/12/19 History norethindrone acetate 2.5 mg PO QAM 03/07/18 07/12/19 History ondansetron HCl [Zofran] 4 mg PO Q6 PRN 03/07/18 07/12/19 History pantoprazole [Protonix] 40 mg PO QAM 03/07/18 07/12/19 History trimethobenzamide 300 mg PO TID PRN 03/07/18 07/12/19 History calcium carbonate [Tums] 400 mg PO BID PRN 08/09/18 07/12/19 History polyethylene glycol 3350 [Miralax] 17 g PO DAILY PRN 08/09/18 07/12/19 History senna leaf 180 ml PO DAILY PRN 11/19/18 07/12/19 History famotidine 20 mg tablet 20 mg PO BID tab 05/26/19 07/12/19 History Phospha 250 Neutral 1 tab PO QID 14 Days #56 tab 06/26/19 07/12/19 Rx hydrocortisone See Rx Instructions .ROUTE .COMPLEX 07/12/19 07/12/19 History levonorgestrel [Mirena] 20 mcg INTRAUTERINE CONTINOUS 07/12/19 07/12/19 History tretinoin 1 applic TOPICAL UD 07/12/19 07/12/19 History Past Med/Surg History Surgical History H/O adenoidectomy (Resolved) H/O laparoscopy (Resolved) H/O lumpectomy (Resolved) History of appendectomy History of vascular access device Hx of tonsillectomy (Resolved) S/P cholecystectomy S/P wrist surgery (Resolved) Social History Preferred Language: Tajik Communication Ability: Effective Commercial Lines Account Manager Required: No Beliefs That Will Affect Care: None marital status: single Current Living Situation: Parent current occupational status: unemployed Other Information That Helps Us Care for You: No Feels Safe at Home: Yes Safety Concerns: Feels Safe At This Time Smoking Status: Never smoker Do You Dip or Chew Tobacco: No ; Second Hand Exposure: No ; Hx Alcohol Use: No Hx Substance Use: No Review of Systems Review of Systems: The patient denies chest pain, palpitations, shortness of breath, dyspnea on exertion, cough, lower extremity swelling, sore throat, fevers, chills, sweats, blood in urine or stool, dysuria, urinary frequency or urgency, lightheadedness, dizziness, headache, memory loss, loss of consciousness, rash, abnormal bruising or bleeding, imbalance, focal weakness, numbness or tingling in arms or legs, ack or neck pain, or night sweats. The review of systems is otherwise negative other than for that already noted above, and at least 10 systems have been reviewed. Physical Exam Physical Exam: The patient is awake, alert and oriented 3, normocephalic and atraumatic, lying in bed and in no acute distress. HEENT--PERRL, EOMI, mucous membranes and oropharynx dry. Neck--supple. No JVD. No bruits. Thyroid normal, trachea midline, no a denopathy. Heart--normal S1 and S2. No murmurs, rubs or gallops. Lungs--clear bilaterally, no respiratory distress, no accessory muscle use. Abdomen--normal bowel sounds and soft. Nontender. Nondistended. Extremities--no cyanosis or clubbing. No edema. Dermatologic--normal skin turgor, normal color, no abnormal lymph nodes, no rash. Neurologic--cranial nerves II through XII grossly intact. Rheumatologic--normal range of motion. Psychiatric--normal affect. Results & Data Vital Signs (Past 12 Hours) Vital Signs Temp Pulse Pulse Resp BP BP Pulse Ox 07/13/19 02:57 98.2 F 90 18 121/80 99 07/13/19 02:21 87 16 112/69 99 07/13/19 01:00 87 16 110/77 96 07/12/19 23:21 88 18 106/66 98 07/12/19 21:09 98.4 F 101 H 22 103/71 99 Laboratory Results Laboratory Results WBC 7.87 K/uL (4.8-10.8) 07/12/19 21:36 RBC 3.66 M/uL (4.2-5.4) L 07/12/19 21:36 Hgb 11.6 g/dL (12.0-16.0) L 07/12/19 21:36 Hct 35.1 % (37-47) L 07/12/19 21:36 MCV 95.9 fL (80-100) 07/12/19 21:36 MCH 31.7 pg (25-34) 07/12/19 21:36 MCHC 33.0 g/dL (32-36) 07/12/19 21:36 RDW Std Deviation 45.2 fL (36.4-46.3) 07/12/19: RDW Coeff of Tim 13.1 % (11.5-14.5) 07/12/19: Plt Count 242 K/uL (130-400) 07/12/19 21:36 MPV 11.5 fL (7.4-10.4) H 07/12/19 21:36 Immature Gran % (Auto) 0.4 % 07/12/19 21: Neut % (Auto) 69.9 % 07/12/19 21:36 Lymph % (Auto) 18.2 % 07/12/19 21:36 [place] % (Auto) 11.1 % 07/12/19 21:36 Eos % (Auto) 0.1 % 07/12/19 21:36 Baso % (Auto) 0.3 % 07/12/19:36 Immature Gran # (Auto) 0.03 K/uL (0.00-0.02) H 07/12/19 21:36 Neut # (Auto) 5.51 K/uL (1.4-6.5) 07/12/19:36 Lymph # (Auto) 1.43 K/uL (1.2-3.4) 07/12/19 21:36 [place] # (Auto) 0.87 K/uL (0.11-0.59) H 07/12/19 21:36 Eos # (Auto) 0.01 K/uL (0-0.5) 07/12/19: Baso # (Auto) 0.02 K/uL (0-0.2) 07/12/19 21:36 Sodium 142 mmol/L (136-145) 07/12/19 21:36 Potassium 3.6 mmol/L (3.5-5.1) 07/12/19 21: Chloride 115 mmol/L (98-107) H 07/12/19 21:36 Carbon Dioxide 22 mmol/L (21-32) 07/12/19 21:36 Anion Gap 6.0 (3-11) 07/12/19 21:36 BUN 8 mg/dl (7-18) 07/12/19 21:36 Creatinine 0.65 mg/dl (0.6-1.2) 07/12/19 21:36 Est Cr Clr Drug Dosing Not Reportable 07/12/19 21:36 Est GFR ( Amer) 141.0 07/12/19 21:36 Est GFR (Non-Af Amer) 121.7 07/12/19 21:36 BUN/Creatinine Ratio 12.9 (10-20) 07/12/19 21:36 Glucose 91 mg/dl (70-99) 07/12/19 21:36 Calcium 8.2 mg/dl (8.5-10.1) L 07/12/19 21:36 Phosphorus 1.3 mg/dl (2.5-4.9) L* 07/12/19 21:36 Magnesium 1.8 mg/dl (1.8-2.4) 07/12/19 21:36 Total Bilirubin 0.2 mg/dl (0.2-1) 07/12/19 21:36 AST 15 U/L (15-37) 07/12/19 21:36 ALT 23 U/L (12-78) 07/12/19 21:36 Alkaline Phosphatase 43 U/L (45-117) L 07/12/19 21:36 C-Reactive Protein < 0.29 mg/dl (0-0.29) 07/12/19 21:36 Total Protein 6.3 gm/dl (6.4-8.2) L 07/12/19 21:36 Albumin 3.8 gm/dl (3.4-5.0) 07/12/19 21:36 Globulin 2.5 gm/dl (2.5-4.0) 07/12/19 21:36 Albumin/Globulin Ratio 1.5 (0.9-2) 07/12/19 21:36 Lipase 1106 U/L (73-393) H 07/12/19 21:36 HCG, Qual Negative (Negative) 07/12/19 21:36 Specimen Hemolysis 07/12/19 21:36 Urine Color Yellow 07/12/19 23:00 Urine Appearance Clear (Clear) 07/12/19 23:00 Urine pH 8.0 (4.5-7.5) H 07/12/19 23:00 Ur Specific [place] 1.011 (1.000-1.030) 07/12/19 23:00 Urine Protein Negative (Negative) 07/12/19 23:00 Urine Glucose (UA) Negative (Negative) 07/12/19 23:00 Urine Ketones Negative (Negative) 07/12/19 23:00 Urine Blood Negative (Negative) 07/12/19 23:00 Urine Nitrite Negative (Negative) 07/12/19 23:00 Urine Bilirubin Negative (Negative) 07/12/19 23:00 Urine Urobilinogen Negative (Negative) 07/12/19 23:00 Ur Leukocyte Esterase Negative (Negative) 07/12/19 23:00 Diagnostic Findings [facility] Patient: CHRIS TALBOT (Female) : 89 Status: ER Date: 07/12/19 23:03 Room #: History: RECENT BOWEL BLOCKAGE, VOMITING Slices: [phone] Priors: Tech: Aneesh Shelton @ [phone] Exams: CT ABDOMEN & PELVIS Without Contrast Accession Numbers: [id number] Preliminary Findings Only See Final Report For Complete Findings CT ABDOMEN & PELVIS Without Contrast: Comparison: CT abdomen and pelvis 07/01/19. Percutaneous gastrojejunostomy tube in place. No bowel obstruction. Fluid-filled small bowel loops, possibly nonspecific enteritis. Appendix not visualized, possibly surgically absent. Cholecystectomy. No biliary dilatation. Unenhanced appearance of the liver, spleen, pancreas, adrenal glands, and kidneys is unremarkable. IUD in uterus. Decompressed urinary bladder. No acute osseous findings. Radiologist: Jeanie Belcher M.D. Study ready at 23:07 and initial results transmitted at 23:16 *This report constitutes a preliminary interpretation only. Non-acute findings felt to be unrelated to the clinical presentation may not be discussed in this report. The study will be interpreted and a final report will be generated by the local Radiologist the following shift. To reach the hospital radiology department call [phone]. If a discrepancy is found between the preliminary and final interpretations of this study, please notify us via our Client Portal at [email or web address], under QA Exams.You can also fax this report with a description of the discrepancy, or include the final report, to our daytime fax number [phone].If faxing, please indicate the severity of discrepancy using one of the following categories: [ ] 1 - Agree/Informational [ ] 2 - Unlikely to Affect Management [ ] 3 - Possible Eventual Change of Management [ ] 4 - Probable Immediate Change of Management For all other patient related information, please fax us at [phone]. [id number] Code Status & VTE Plan Code Status Full code VTE Prophylaxis Plan VTE Prophylaxis will be ordered: Yes PG Care Time/CCT Total # of Minutes Spent Total Time Spent with Patient: Total time spent is greater than 50% in coordination of care (as documented) at patient's floor/unit and/or counseling patient: Coding Level of Care Code 99153 Initial Inpt Care Lvl 3 Diagnoses Nausea and vomiting R11.2 Pancreatitis K85.90 Enteritis K52.9 Generalized abdominal pain R10.84 Secondary hyperparathyroidism N25.81 Hypocalcemia E83.51 Hypophosphatemia E83.39 Abdominal pain R10.9 Malabsorption K90.9 Intestinal malabsorption type: unspecified Jejunal intussusception K56.1 Gastroparesis K31.84 Sphincter of Oddi spasm K83.4 Jejunostomy tube in situ Z93.4 Adrenal insufficiency E27.40 SMAS (superior mesenteric artery syndrome) K55.1 Crohn's disease K50.90 (1) Malabsorption Intestinal malabsorption type: unspecified Qualified Code(s): K90.9 - Intestinal malabsorption, unspecified
[2019-07-13] MEDS ORDERED: MoRPHine SULFATE 2 MG/ML CARP IV PRN (05:12)
[2019-07-13] MEDS ORDERED: HEPARIN 100 UNIT/ML 5ML FLUSH FLUSH PRN (05:13)
[2019-07-13] MEDS ORDERED: MoRPHine SULFATE 2 MG/ML CARP ONE (05:15)
[2019-07-13] MEDS: HYDROCORTISONE SOD 100 MG in SYRINGE 0 ML IV SCH ×3 (05:43→20:29)
[2019-07-13] MEDS ORDERED: HYDROmorphone INJ 0.5 MG/0.5 ML SYR ONE (05:43)
[2019-07-13] MEDS ORDERED: ALBUTEROL HFA 8 GM INHALER INH PRN (05:56)
--- NOTE | 2019-07-13 07:01 | CT Scan Report ---
CT OF THE ABDOMEN AND PELVIS WITHOUT CONTRAST CLINICAL HISTORY: Vomiting. Evaluate for obstruction. COMPARISON STUDY: CT of the abdomen and pelvis July 01, 2019 TECHNIQUE: Axial images of the abdomen and pelvis were obtained without IV contrast. Images were revi ewed in the axial, sagittal, and coronal planes. Automated exposure control was utilized for the jeremiah dy. A dose lowering technique was utilized adhering to the principles of ALARA. FINDINGS: Lung bases are unremarkable. No pneumatosis, free air or portal venous gas is present. Rodrigo rojejunostomy tube is appropriately positioned. Evaluation of the abdomen and pelvis is suboptimal on this unenhanced exam. There is no biliary ductal dilatation status post cholecystectomy. The spleen, liver, adrenal glands, kidneys and pancreas are normal. There is no peripancreatic infiltration. The appendix is likely surgically absent. There is no abscess. No bowel wall thickening is identified on this unenhanced exam. The mid to distal small bowel and right colon are fluid-filled. No suspicious osseous lesions are noted. Intrauterine device is appropriately positioned. There is no hydronephrosi s. Punctate right renal calculus is present. IMPRESSION: 1. Appropriately positioned gastrojejunostomy tube. No bowel obstruction. 2. Fluid-filled small bowel. This can be normal finding or reflect an enteritis. ACT 112: Negative or not required by law. Electronically signed by: Ruperto Lopez M.D. 07/13/2019 6:59 AM
[2019-07-13] MEDS: NORETHINDRONE 5 MG TAB PO SCH (08:36)
[2019-07-13] MEDS: LINACLOTIDE 72 MCG CAPSULE PO SCH ×2 (08:36→21:15)
[2019-07-13] MEDS: POT PHOSPHATE MONOBASIC W/ SOD TAB PO SCH ×2 (08:36→12:35)
[2019-07-13] MEDS: PANTOprazole 40 MG TAB PO SCH (08:36)
[2019-07-13] MEDS: FAMOTIDINE 20 MG TAB PO SCH ×2 (08:37→21:16)
[2019-07-13] MEDS: ONDANSETRON INJ 2 MG/ML 2 ML VIAL IV PRN ×3 (08:38→18:50)
[2019-07-13 08:51] LABS: Hematocrit (blood only) 33.5 % (37-47); Hemoglobin 11.1 g/dL (12.0-16.0); Mean Corpuscular Hemoglobin 31.7 pg (25-34); Mean Corpuscular Hgb Conc 33.1 g/dL (32-36); Mean Corpuscular Volume 95.7 fL (80-100); Mean Platelet Volume 10.7 fL (7.4-10.4); Platelet Count 218 K/uL (130-400); RDW Coefficient of Variation 13.1 % (11.5-14.5); White Blood Count 17.13 K/uL (4.8-10.8)
[2019-07-13] MEDS ORDERED: CALCIUM CARBONATE 500 MG CHEWABLE TAB PO PRN (09:00)
[2019-07-13 09:25] LABS: Basophils # (auto) 0.03 K/uL (0-0.2); Basophils % (auto) 0.2 %; Eosinophils # (auto) 0.01 K/uL (0-0.5); Eosinophils % (auto) 0.1 %; Immature Granulocytes # (auto) 0.05 K/uL (0.00-0.02); Immature Granulocytes % (auto) 0.3 %; Lymphocytes # (auto) 0.85 K/uL (1.2-3.4); Monocytes # (auto) 0.42 K/uL (0.11-0.59); Monocytes % (auto) 2.5 %; Neutrophils # (auto) 15.77 K/uL (1.4-6.5); Neutrophils % (auto) 91.9 %; RBC Morphology Unremarkable
[2019-07-13 09:26] LABS: Albumin Level 3.4 gm/dl (3.4-5.0); BUN Creatinine Ratio 10.6 (10-20); Calcium 7.9 mg/dl (8.5-10.1); Creatinine Clr Calc Pharmacy 87.6 ml/min; Est GFR (African American) 138.3; Est GFR (Non-African American) 119.3; Potassium 3.4 mmol/L (3.5-5.1)
[2019-07-13 09:34] LABS: Albumin Globulin Ratio 1.3 (0.9-2); Bilirubin,Total 0.4 mg/dl (0.2-1); Globulin 2.5 gm/dl (2.5-4.0); Phosphorus 4.9 mg/dl (2.5-4.9); Total Protein 5.9 gm/dl (6.4-8.2)
[2019-07-13] MEDS ORDERED: DEXTROSE 10% 1,000 ML IV PRN (10:49)
--- NOTE | 2019-07-13 12:25 | Nephrology Consultation ---
Date of Consultation July 13, 2019 Assessment & Plan (1) Pancreatitis: No significant findings on imaging. Enzymes slightly elevated. Calcium level acceptable. Routine abdominal exams being performed. (2) Generalized abdominal pain: Etiology unclear possibly related to above (3) Secondary hyperparathyroidism: Secondary hyperparathyroidism/hypocalcemia/hypophosphatemia/history of GI malabsorption. Improved with replacement. Hold additional replacement and monitor for now. (4) Hypocalcemia: Was taking TUMS at home which may have acted as calcium binder contributing to hypophosphatemia. Once clinically improved, we can repeat labs to assess for MBD. (5) Hypophosphatemia: Phosphorus normalized with aggressive replacement. As above, hold additional PO4 replacement at this time and monitor. (6) Abdominal pain: GI consult pending. (7) Malabsorption: Multifactorial (8) Jejunal intussusception: Resolved after surgical procedure at recent hospitalization (9) Gastroparesis: Continue Linzess (10) Sphincter of Oddi spasm: (11) Jejunostomy tube in situ: (12) SMAS (superior mesenteric artery syndrome): Following with [facility] GI (13) Crohn's disease: Denies symptoms suggestive of active flare History of Present Illness Reason for Consultation: KISHA Requesting Physician: Vicky Drew MD Attending Physician: Vicky Drew MD History of Present Illness Pilar is a 29-year-old female with a complex history of nutritional deficiency and chronic anorexia. Pilar suffers from gastroparesis, sphincter of Oddi spasm, SMA syndrome, jejunostomy tube in situ, TPN, adrenal insufficiency, hypophosphatemia, intestinal dysmotility, asthma, anemia, Crohn's disease, and hemorrhagic cystitis. She is maintained on TPN at home. Most recent hospitalizations are from 06/24-06/26, and then 06/27-07/02/2019. She has been seen by Dr. Fernández from GI locally, and follows with GI at [facility]. Her work-up this time includes an abnormal lipase of 1106, which is not been noted before. Her other persistent issue has been hypophosphatemia. She presented to the ED yesterday with weakness and abdominal pain. Pilar is being treated for mild pancreatitis. Phosphorous is being supplemented. Nephrology consultation provided as patient has been seen in the past with regards to hypophosphatemia and secondary hyperparathyroidism. Allergies Allergy/AdvReac Type Severity Reaction Status Date / Time amoxicillin Allergy Intermediate RASH Verified 07/12/19 23:40 Bactrim Allergy Intermediate RASH Verified 08/13/17 12:16 cefazolin Allergy Intermediate rash Verified 07/12/19 23:40 Cephalosporins Allergy Intermediate HIVES Verified 07/12/19 23:40 clavulanic acid Allergy Intermediate HIVES Verified 07/12/19 23:40 Penicillins Allergy Intermediate HIVES Verified 07/12/19 23:40 prochlorperazine Allergy Intermediate HIVES Verified 07/12/19 23:40 promethazine Allergy Intermediate hives, Verified 07/12/19 23:40 throat swelling sulfamethoxazole Allergy Intermediate RASH Verified 07/12/19 23:40 sumatriptan Allergy Intermediate RASH Verified 07/12/19 23:40 trimethoprim Allergy Intermediate RASH Verified 07/12/19 23:40 diphenhydramine AdvReac Intermediate Tachycardia, Verified 07/12/19 23:40 Severe Anxiety WITH IV ONLY erythromycin base AdvReac Intermediate GI SYMPTOMS Verified 07/12/19 23:40 citalopram [From Celexa] AdvReac Unknown Verified 07/12/19 23:40 MULTIVITAMIN Allergy Unknown Uncoded 07/12/19 23:40 Home Medications Home Medications Medication Instructions Recorded Confirmed Type Linzess 145 mcg PO BID 03/07/18 07/12/19 History albuterol sulfate [ProAir HFA] 2 puff INHALATION QID PRN 03/07/18 07/12/19 History azelastine 1 - 2 spray INTRANASAL BID PRN 03/07/18 07/12/19 History cetirizine [Zyrtec] 10 mg PO HS 03/07/18 07/12/19 History dicyclomine 20 mg PO Q6 PRN 03/07/18 07/12/19 History hyoscyamine sulfate 0.125 mg SUBLINGUAL Q4 PRN 03/07/18 07/12/19 History norethindrone acetate 2.5 mg PO QAM 03/07/18 07/12/19 History ondansetron HCl [Zofran] 4 mg PO Q6 PRN 03/07/18 07/12/19 History pantoprazole [Protonix] 40 mg PO QAM 03/07/18 07/12/19 History trimethobenzamide 300 mg PO TID PRN 03/07/18 07/12/19 History calcium carbonate [Tums] 400 mg PO BID PRN 08/09/18 07/12/19 History polyethylene glycol 3350 [Miralax] 17 g PO DAILY PRN 08/09/18 07/12/19 History senna leaf 180 ml PO DAILY PRN 11/19/18 07/12/19 History famotidine 20 mg tablet 20 mg PO BID tab 05/26/19 07/12/19 History Phospha 250 Neutral 1 tab PO QID 14 Days #56 tab 06/26/19 07/12/19 Rx hydrocortisone See Rx Instructions .ROUTE .COMPLEX 07/12/19 07/12/19 History levonorgestrel [Mirena] 20 mcg INTRAUTERINE CONTINOUS 07/12/19 07/12/19 History tretinoin 1 applic TOPICAL UD 07/12/19 07/12/19 History Patient History Medical History Appendicitis, acute (Acute 11/07/13) Asthma (Chronic) Chronic migraine (Chronic) Crohn's disease (Chronic) Endometriosis (Resolved) Endometriosis Hemorrhagic cystitis (Acute) Hypotension 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 of Oddi dysfunction Uses feeding tube UTI (urinary tract infection) (Acute) Surgical History H/O adenoidectomy (Resolved) H/O laparoscopy (Resolved) H/O lumpectomy (Resolved) History of appendectomy History of vascular access device Hx of tonsillectomy (Resolved) S/P cholecystectomy S/P wrist surgery (Resolved) Family History Other No significant family history Social History Preferred Language: Welsh Communication Ability: Effective Yard Cleaner Required: No Beliefs That Will Affect Care: None marital status: single Current Living Situation: Parent current occupational status: unemployed Other Information That Helps Us Care for You: No Feels Safe at Home: Yes Safety Concerns: Feels Safe At This Time Smoking Status: Never smoker Do You Dip or Chew Tobacco: No ; Second Hand Exposure: No ; Hx Alcohol Use: No Hx Substance Use: No Review of Systems Review of Systems: All systems reviewed & are unremarkable except as noted in HPI & below Constitutional: no weight loss, no weight gain and no problem reported Eyes: no problem reported Ear, Nose, Mouth, Throat: no problem reported Respiratory: no problem reported Cardiovascular: no problem reported Gastrointestinal: no problem reported Musculoskeletal: no problem reported Integumentary: no problem reported Neurologic: no problem reported Psychiatric: no problem reported Endocrine: no problem reported Hematologic / Lymphatic: no problem reported Physical Exam Constitutional: well developed and + thin; no acute distress Eyes: no scleral abnormality and no corneal abnormality ENMT: Mouth: no oral mucosal abnormality and oral mucous membranes not dry Neck: normal visual inspection and trachea midline Respiratory: normal respiratory effort Auscultation: lungs clear to auscultation bilaterally Cardiovascular: Rate/Rhythm: regular rate Heart Sounds: normal S1 and normal S2 Extremities: no edema Musculoskeletal: Extremities: no cyanosis and no clubbing Skin: normal turgor; no lesions Neurologic: Motor/Sensory: no tremor and no asterixis Psychiatric: Orientation: alert and oriented x 3 Results & Data Vital Signs (Past 12 Hours) Vital Signs Temp Pulse Pulse Resp BP BP Pulse Ox 07/13/19 07:55 36.8 C 88 16 96/62 L 95 07/13/19 02:57 36.8 C 90 18 121/80 99 07/13/19 02:21 87 16 112/69 99 07/13/19 01:00 87 16 110/77 96 PG Care Time/CCT Total # of Minutes Spent Total Time Spent with Patient: Total time spent is greater than 50% in coordination of care (as documented) at patient's floor/unit and/or counseling patient: Coding Level of Care Code 41593 Inpt Consult Level 4 Diagnoses Pancreatitis K85.90 Generalized abdominal pain R10.84 Secondary hyperparathyroidism N25.81 Hypocalcemia E83.51 Hypophosphatemia E83.39 Abdominal pain R10.9 Malabsorption K90.9 Intestinal malabsorption type: unspecified Jejunal intussusception K56.1 Gastroparesis K31.84 Sphincter of Oddi spasm K83.4 Jejunostomy tube in situ Z93.4 SMAS (superior mesenteric artery syndrome) K55.1 Crohn's disease K50.90 (1) Malabsorption Intestinal malabsorption type: unspecified Qualified Code(s): K90.9 - Intestinal malabsorption, unspecified
[2019-07-13] MEDS ORDERED: TPN/PPN CONSULT PHARMACY PRN (13:47)
--- NOTE | 2019-07-13 14:49 | Gastrointestinal Consultation ---
Date of Consultation July 13, 2019 Assessment & Plan (1) Pancreatitis: Lipase was elevated but no evidence of pancreatitis on CT. May not be pancreatitis or mild disease not seen on CT. Mentioned to patient important to keep urine for measurement to make sure adequate hydration if this is pancreatisi. Check triglycerides to see if high.Ca is not high. NO ETOH. No new meds. Check MRCP to look for sludge/stones in CBD but LFTs normal. IVF, pain control n/v==vent Gtube and put on LIS. elevated WBC--could be from pancreatitis--monitor if spike temps recommend panculture. History of Present Illness Reason for Consultation: pancreatitis Requesting Physician: Dr Dioni Corcoran Attending Physician: Vicky Drew MD History of Present Illness CC abd pain HPI Mother with patient for H and P. Pt followed by [facility] as outpt. We have seen her as inpt. She has hx SMA syndrome s/p surgery, thought to have intestinal dysmotility, has GJ tube but does not tolerate feeds, is on chronic TPN . She was in the hospital 06/24 to 06/26/19 for hypophophatemia. Then admitted 06/27/07/02/2019 for jejunal intussection.She was transferred to [facility] on 07/02. She states had push enteroscopy 9 days ago with resolution of intussection. She was out of hospital 6 days and last night had worsening of epi and new lower abd pain.Had diarrheal stool with crampinng. A/P CT fluid filled sb and colon, pancreas normal. Lipase 1106 now 298. WBC nl then today 17.1. LFTS normal. No ETOH use. Ca is not high. She is on lipids daily with her TPN. She states she is urinating and just recently but is not saving urine for the nurse. She has been having dry heaves. NO improvement in pain. Allergies Allergy/AdvReac Type Severity Reaction Status Date / Time amoxicillin Allergy Intermediate RASH Verified 07/12/19 23:40 Bactrim Allergy Intermediate RASH Verified 08/13/17 12:16 cefazolin Allergy Intermediate rash Verified 07/12/19 23:40 Cephalosporins Allergy Intermediate HIVES Verified 07/12/19 23:40 clavulanic acid Allergy Intermediate HIVES Verified 07/12/19 23:40 Penicillins Allergy Intermediate HIVES Verified 07/12/19 23:40 prochlorperazine Allergy Intermediate HIVES Verified 07/12/19 23:40 promethazine Allergy Intermediate hives, Verified 07/12/19 23:40 throat swelling sulfamethoxazole Allergy Intermediate RASH Verified 07/12/19 23:40 sumatriptan Allergy Intermediate RASH Verified 07/12/19 23:40 trimethoprim Allergy Intermediate RASH Verified 07/12/19 23:40 diphenhydramine AdvReac Intermediate Tachycardia, Verified 07/12/19 23:40 Severe Anxiety WITH IV ONLY erythromycin base AdvReac Intermediate GI SYMPTOMS Verified 07/12/19 23:40 citalopram [From Celexa] AdvReac Unknown Verified 07/12/19 23:40 MULTIVITAMIN Allergy Unknown Uncoded 07/12/19 23:40 Home Medications Home Medications Medication Instructions Recorded Confirmed Type Linzess 145 mcg PO BID 03/07/18 07/12/19 History albuterol sulfate [ProAir HFA] 2 puff INHALATION QID PRN 03/07/18 07/12/19 History azelastine 1 - 2 spray INTRANASAL BID PRN 03/07/18 07/12/19 History cetirizine [Zyrtec] 10 mg PO HS 03/07/18 07/12/19 History dicyclomine 20 mg PO Q6 PRN 03/07/18 07/12/19 History hyoscyamine sulfate 0.125 mg SUBLINGUAL Q4 PRN 03/07/18 07/12/19 History norethindrone acetate 2.5 mg PO QAM 03/07/18 07/12/19 History ondansetron HCl [Zofran] 4 mg PO Q6 PRN 03/07/18 07/12/19 History pantoprazole [Protonix] 40 mg PO QAM 03/07/18 07/12/19 History trimethobenzamide 300 mg PO TID PRN 03/07/18 07/12/19 History calcium carbonate [Tums] 400 mg PO BID PRN 08/09/18 07/12/19 History polyethylene glycol 3350 [Miralax] 17 g PO DAILY PRN 08/09/18 07/12/19 History senna leaf 180 ml PO DAILY PRN 11/19/18 07/12/19 History famotidine 20 mg tablet 20 mg PO BID tab 05/26/19 07/12/19 History Phospha 250 Neutral 1 tab PO QID 14 Days #56 tab 06/26/19 07/12/19 Rx hydrocortisone See Rx Instructions .ROUTE .COMPLEX 07/12/19 07/12/19 History levonorgestrel [Mirena] 20 mcg INTRAUTERINE CONTINOUS 07/12/19 07/12/19 History tretinoin 1 applic TOPICAL UD 07/12/19 07/12/19 History Patient History Medical History Appendicitis, acute (Acute 11/07/13) Asthma (Chronic) Chronic migraine (Chronic) Crohn's disease (Chronic) Endometriosis (Resolved) Endometriosis Hemorrhagic cystitis (Acute) Hypotension 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 of Oddi dysfunction Uses feeding tube UTI (urinary tract infection) (Acute) Surgical History H/O adenoidectomy (Resolved) H/O laparoscopy (Resolved) H/O lumpectomy (Resolved) History of appendectomy History of vascular access device Hx of tonsillectomy (Resolved) S/P cholecystectomy S/P wrist surgery (Resolved) Family History Other No significant family history Social History Preferred Language: Tamazight Communication Ability: Effective Banana Expert Required: No Beliefs That Will Affect Care: None marital status: single Current Living Situation: Parent current occupational status: unemployed Other Information That Helps Us Care for You: No Feels Safe at Home: Yes Safety Concerns: Feels Safe At This Time Smoking Status: Never smoker Do You Dip or Chew Tobacco: No ; Second Hand Exposure: No ; Hx Alcohol Use: No Hx Substance Use: No Review of Systems Review of Systems: All systems reviewed & are unremarkable except as noted in HPI & below Physical Exam Constitutional: WD/WN, vitals as above Eyes: PERRL, conjunctivae normal, anicteric sclerae Neck: normal visual inspection and trachea midline Respiratory: normal respiratory effort, lungs clear to auscultation Cardiovascular: RRR, no murmur, no edema Gastrointestinal (Abdomen): decreased bowel sounds, soft, no guarding nor rebound. Musculoskeletal: Head/Neck/Chest: + head abnormal to inspection Neurologic: PERRL, EOMI, accommodation nl, no face palsy, no dysarthria Psychiatric: A+Ox3, euthymic affect Results & Data ([facility]) Vital Signs (Past 12 Hours) Vital Signs Temp Pulse Resp BP Pulse Ox 07/13/19 07:55 36.8 C 88 16 96/62 L 95 07/13/19 02:57 36.8 C 90 18 121/80 99
--- NOTE | 2019-07-13 15:10 | Pharmacy Report ---
Pharmacy PN Initial Consult - Date of Service July 13, 2019 - Scope Pharmacy has been consulted to manage parenteral nutrition orders and order appropriate labs. As part of the Nutrition Support Team guidelines, pharmacy will work in conjunction with dietary when determining the patients caloric needs. - Subjective The patient is a 29 year old F admitted on 07/13/19 01:19 for hypophosphatemia and pancreatitis. Patient is to receive parenteral nutrition for continued chronic management of Crohn's, GI dysmotility, gastroparesis, h/o SMA Syndrome. - Objective Height: 5 ft 6 in Weight: 45.3 kg Diet: Regular Vascular Access:: * Central Port Intake & Output (Last 24Hrs): Intake & Output 07/11/19 07/12/19 07/13/19 07/14/19 06:59 06:59 06:59 06:59 Intake Total 1255 / 1255 1013.3333 / 1013.3333 Output Total Balance 1254 / 1254 1013.3333 / 1013.3333 Weight 45.3 kg Laboratory Data (Last 24 Hrs):: 07/12/19 07/13/19 21:36 08:31 Sodium 142 144 Potassium 3.6 3.4 L Chloride 115 H 115 H Carbon Dioxide 22 23 BUN 8 7 Creatinine 0.65 0.69 Glucose 91 97 Calcium 8.2 L 7.9 L Phosphorus 1.3 L* 4.9 D Magnesium 1.8 Total Bilirubin 0.2 0.4 AST 15 11 L ALT 23 20 Alkaline Phosphatase 43 L 42 L Albumin 3.8 3.4 Recent Pertinent Medications:: * Calcium Carbonate 500 mg PO BID prn * NeutraPhos 2 tabs PO QID * Sodium Phosphate 40 mmol IV 07/12 @ 0320 * Potassium Phosphate 15 mmol IV 07/13 @ 6838 Nutrition Assessment:: Please refer to the Notes section of the EMR for the most recent mosaicist note. - Assessment * 29 yo F on chronic PN who follows with [facility] in [place] for outpatient PN management * She was admitted recently for hypophosphatemia and was transferred to [facility] for intussusception * Her hypophosphatemia was corrected this admission with NaPhos 40 mmol and KPhos 15 mmol * Patient has not received her PN since Thursday (07/11/2019) * Patient c/o nausea and vomiting so we will trial a 24 hour infusion instead of her normal 12 hour cyclic PN at home to help combat the nausea * Since patient has not received PN in a few days will start with a lower amount of dextrose to prevent refeeding syndrome especially given the patient's chronic hypophosphatemia * Macronutrients were calculated based on 25 kcal/kg/day of actual body weight with 30% contributed to fats, 1.2 g/kg of amino acids and the remaining kcals going to dextrose. Will start dextrose at ~ 75% of daily goal. Macronutrient requirements may change based on dietitian recommendations. * Regarding electrolytes, will provide similar amounts as per outpatient regimen * TPN with fats is safe in pancreatitis if hypertriglyceridemia is avoided per ESPEN guidelines. Triglycerides were ordered for tomorrow AM although patient has never had elevated triglycerides during previous admissions. - Plan For day 1 of PN administration, the following will be ordered: Macronutrients Amino acids 90 grams/day Dextrose 125 grams/day Lipids 50 grams/day Micronutrients Sodium acetate 82 mEq Potassium phosphate 30 mMol Potassium acetate 75 mEq Magnesium sulfate 12.18 mEq Calcium gluconate 13.8 mEq Trace Elements 10 mL Folic acid 1 mg Thiamine 100 mg Famotidine 20 mg *Note: No MVI secondary to allergy Total volume 1500 mL to be infused over 24 hrs will provide 1285 kcal/day Labs to be ordered per PN order protocol Pharmacy will follow and adjust parenteral nutrition orders on a daily basis. Thank you.
[2019-07-13] MEDS ORDERED: Custom Central Pn 1,500 ML in TPN BAG 0 ML IV SCH (16:00)
[2019-07-13 16:07] LABS: Chol HDL Ratio 4; Cholesterol 166 mg/dl (0-200); HDL Cholesterol 43 mg/dl; LDL Cholesterol Calculated 112 mg/dl; Triglycerides 54 mg/dl (0-150); VLDL Cholesterol 11 mg/dl
--- NOTE | 2019-07-13 17:59 | Hospitalist Progress Note ---
Date of Service July 13, 2019 Assessment & Plan (1) Nausea and vomiting: Recurrent nausea vomiting, abdominal pain, enteritis possibly seen on CT abdomen/pelvis but frequently has liquid stool seen. Intussusception in the jejunum around the feeding tube is now resolved since her push enteroscopy at [facility] last week. Continue to treat symptomatically with IV Zofran and add IV Ativan which works well for her Continue her usual outpatient regimen for GI motility. (2) Pancreatitis: Presented with epigastric abdominal pain with mildly elevated lipase of 1106 suggestive of pancreatitis although CT abdomen/pelvis with normal pancreas Lipase now down to normal -Start IV fluids as she is refusing TPN -Consider starting pancreatic enzymes -Nonspecific elevation perhaps, discussed with GI-recommends MRCP Triglycerides are normal, calcium is actually low No gallstones, no alcohol use (3) Enteritis: See above (4) Generalized abdominal pain: See above Acute on chronic Continue IV Dilaudid as needed with caution given motility issues (5) Secondary hyperparathyroidism: Secondary hyperparathyroidism/hypocalcemia/hypophosphatemia/history of GI malabsorption- Consult nephrology for opinion-appreciated. Hypocalcemia may be related to poor absorption Hypophosphatemia could be related to use of calcium carbonate orally binding with her sodium phosphate tablets and poor absorption (6) Hypocalcemia: As above Replace as needed Follow levels (7) Hypophosphatemia: Replaced and now resolved -Follow in the morning (8) Malabsorption: Multifactorial (9) Jejunal intussusception: Resolved after push enteroscopy at recent hospitalization at [facility] last week (10) Gastroparesis: Continue Linzess and domperidone (11) Sphincter of Oddi spasm: Noted as a cause of some of her symptoms (12) Jejunostomy tube in situ: Not currently being used for feeding Due to be changed out at [facility] next week (13) Adrenal insufficiency: Due to recurrent admissions, place on stress dose hydrocortisone 100 mg IV every 8 hours-wean down -Holding home hydrocortisone not able to take much p.o. (14) SMAS (superior mesenteric artery syndrome): Status post surgery at [place] many years ago (15) Hypokalemia: Replace (16) Endometriosis: Continue progestin daily and has Mirena IUD in place hCG negative (17) DVT prophylaxis: Add Lovenox Disposition-remain hospitalized Admission and Anticipated Discharge Date Admission Date: July 13, 2019 Subjective Patient continues to have both epigastric and lower abdominal pains, continued nausea with emesis bag in front of her when I saw her. She has a blotchy rash on her thorax which she reports she always gets when she has pain even before getting IV pain medicine. She is now hooked up to low intermittent suction to her J-tube as per GI recommendation. She had 2 loose bowel movements yesterday. For the 5 days a fter discharge from [facility] prior to this admission she was eating things like rice and cereal at home as well as soup. She is requesting that her TPN be placed on hold. We are waiting records from [facility] before MRI will clear her for having her MRCP. Denies chest pain or shortness of breath. Review of Systems Review of Systems: All systems reviewed & are unremarkable except as noted in HPI & below (Has been having a rash around her eyes and some acne on the face) Physical Exam Constitutional: + ill appearing and + underweight; no acute distress ENMT: external ear and nose normal, oropharynx normal Neck: trachea midline, no thyromegaly Respiratory: normal respiratory effort, lungs clear to auscultation Cardiovascular: RRR, no murmur, no edema Chest (Breasts): Chest: normal inspection of chest Gastrointestinal (Abdomen): Inspection/Auscultation: + hypoactive bowel sounds; + abdomen abnormal to inspection (J-tube in place) Percussion/Palpation: + abdomen tender (Minimal in epigastric region without guarding or rebound) and abdomen soft Musculoskeletal: Extremities: extremities normal to inspection; no cyanosis and no clubbing Skin: no rashes, warm and dry Neurologic: moves all extremities and awake; no focal motor deficits Psychiatric: Orientation: alert and oriented x 3 Affect: + flat affect Lymphatic: no lymphedema Results & Data ([facility]) Vital Signs (Past 12 Hours) Vital Signs Temp Pulse Resp BP Pulse Ox 07/13/19 15:37 36.8 C 99 H 18 106/69 96 07/13/19 07:55 36.8 C 88 16 96/62 L 95 Laboratory Results 07/14/19 07/14/19 07/13/19 Range/Units 05:37 05:37 15:32 WBC 8.93 (4.8-10.8) K/uL RBC 3.22 L (4.2-5.4) M/uL Hgb 10.4 L (12.0-16.0) g/dL Hct 30.8 L (37-47) % MCV 95.7 (80-100) fL MCH 32.3 (25-34) pg MCHC 33.8 (32-36) g/dL RDW Std Deviation 44.7 (36.4-46.3) fL RDW Coeff of Tim 12.8 (11.5-14.5) % Plt Count 188 (130-400) K/uL MPV 11.4 H (7.4-10.4) fL Immature Gran % (Auto) 0.1 % Neut % (Auto) 77.6 % Lymph % (Auto) 14.7 % Dickson % (Auto) 7.5 % Eos % (Auto) 0.0 % Baso % (Auto) 0.1 % Immature Gran # (Auto) 0.01 (0.00-0.02) K/uL Neut # (Auto) 6.93 H (1.4-6.5) K/uL Lymph # (Auto) 1.31 (1.2-3.4) K/uL Dickson # (Auto) 0.67 H (0.11-0.59) K/uL Eos # (Auto) 0.00 (0-0.5) K/uL Baso # (Auto) 0.01 (0-0.2) K/uL RBC Morphology Sodium 144 (136-145) mmol/L Potassium 3.4 L (3.5-5.1) mmol/L Chloride 113 H (98-107) mmol/L Carbon Dioxide 23 (21-32) mmol/L Anion Gap 8.0 (3-11) BUN 10 (7-18) mg/dl Creatinine 0.47 L (0.6-1.2) mg/dl Est Cr Clr Drug Dosing 128.6 ml/min Est GFR ( Amer) > 150.0 Est GFR (Non-Af Amer) 135.4 BUN/Creatinine Ratio 21.8 H (10-20) Glucose 84 (70-99) mg/dl Calcium 8.0 L (8.5-10.1) mg/dl Phosphorus 2.9 D (2.5-4.9) mg/dl Magnesium 1.7 L (1.8-2.4) mg/dl Total Bilirubin 0.4 (0.2-1) mg/dl AST 10 L (15-37) U/L ALT 18 (12-78) U/L Alkaline Phosphatase 41 L (45-117) U/L Total Protein 5.2 L (6.4-8.2) gm/dl Albumin 3.0 L (3.4-5.0) gm/dl Globulin 2.2 L (2.5-4.0) gm/dl Albumin/Globulin Ratio 1.4 (0.9-2) Triglycerides 70 54 (0-150) mg/dl Cholesterol 166 (0-200) mg/dl LDL Cholesterol, Calc 112 mg/dl VLDL Cholesterol, Calc 11 mg/dl HDL Cholesterol 43 mg/dl Cholesterol/HDL Ratio 4 Lipase 101 (73-393) U/L 07/13/19 07/13/19 07/13/19 Range/Units 08:31 08:31 08:31 WBC (4.8-10.8) K/uL RBC (4.2-5.4) M/uL Hgb (12.0-16.0) g/dL Hct (37-47) % MCV (80-100) fL MCH (25-34) pg MCHC (32-36) g/dL RDW Std Deviation (36.4-46.3) fL RDW Coeff of Tim (11.5-14.5) % Plt Count (130-400) K/uL MPV (7.4-10.4) fL Immature Gran % (Auto) 0.3 % Neut % (Auto) 91.9 % Lymph % (Auto) 5.0 % Dickson % (Auto) 2.5 % Eos % (Auto) 0.1 % Baso % (Auto) 0.2 % Immature Gran # (Auto) 0.05 H (0.00-0.02) K/uL Neut # (Auto) 15.77 H (1.4-6.5) K/uL Lymph # (Auto) 0.85 L (1.2-3.4) K/uL Dickson # (Auto) 0.42 (0.11-0.59) K/uL Eos # (Auto) 0.01 (0-0.5) K/uL Baso # (Auto) 0.03 (0-0.2) K/uL RBC Morphology Unremarkable Sodium 144 (136-145) mmol/L Potassium 3.4 L (3.5-5.1) mmol/L Chloride 115 H (98-107) mmol/L Carbon Dioxide 23 (21-32) mmol/L Anion Gap 7.0 (3-11) BUN 7 (7-18) mg/dl Creatinine 0.69 (0.6-1.2) mg/dl Est Cr Clr Drug Dosing 87.6 ml/min Est GFR ( Amer) 138.3 Est GFR (Non-Af Amer) 119.3 BUN/Creatinine Ratio 10.6 (10-20) Glucose 97 (70-99) mg/dl Calcium 7.9 L (8.5-10.1) mg/dl Phosphorus 4.9 D (2.5-4.9) mg/dl Magnesium (1.8-2.4) mg/dl Total Bilirubin 0.4 (0.2-1) mg/dl AST 11 L (15-37) U/L ALT 20 (12-78) U/L Alkaline Phosphatase 42 L (45-117) U/L Total Protein 5.9 L (6.4-8.2) gm/dl Albumin 3.4 (3.4-5.0) gm/dl Globulin 2.5 (2.5-4.0) gm/dl Albumin/Globulin Ratio 1.3 (0.9-2) Triglycerides (0-150) mg/dl Cholesterol (0-200) mg/dl LDL Cholesterol, Calc mg/dl VLDL Cholesterol, Calc mg/dl HDL Cholesterol mg/dl Cholesterol/HDL Ratio Lipase 298 (73-393) U/L PG Care Time/CCT Total # of Minutes Spent Total Time Spent with Patient: Total time spent is greater than 50% in coordination of care (as documented) at patient's floor/unit and/or counseling patient: Coding Level of Care Code 83448 Subseq Hosp Care Lvl 2 Diagnoses Nausea and vomiting R11.2 Pancreatitis K85.90 Enteritis K52.9 Generalized abdominal pain R10.84 Secondary hyperparathyroidism N25.81 Hypocalcemia E83.51 Hypophosphatemia E83.39 Malabsorption K90.9 Intestinal malabsorption type: unspecified Jejunal intussusception K56.1 Gastroparesis K31.84 Sphincter of Oddi spasm K83.4 Jejunostomy tube in situ Z93.4 Adrenal insufficiency E27.40 SMAS (superior mesenteric artery syndrome) K55.1 Hypokalemia E87.6 Endometriosis N80.9 DVT prophylaxis Z29.9 (1) Malabsorption Intestinal malabsorption type: unspecified Qualified Code(s): K90.9 - Intestinal malabsorption, unspecified
[2019-07-13] MEDS: SODIUM CHLORIDE 0.9% 1000ML 1,000 ML IV SCH (18:53)
[2019-07-13] MEDS: LORazepam 0.5 MG/1 ML VIAL IV PRN (20:23)
[2019-07-13] MEDS: HYOSCYAMINE SULFATE 0.125 MG TAB SL PRN (20:28)
[2019-07-13] MEDS: CETIRIZINE HCL 10 MG TABLET PO SCH (21:15)
[2019-07-14] MEDS: HYDROmorphone INJ 0.5 MG/0.5 ML SYR IV PRN ×6 (00:24→21:53)
[2019-07-14] MEDS: LORazepam 0.5 MG/1 ML VIAL IV PRN ×2 (01:54→16:22)
[2019-07-14] MEDS: HYOSCYAMINE SULFATE 0.125 MG TAB SL PRN (01:54)
[2019-07-14] MEDS: SODIUM CHLORIDE 0.9% 1000ML 1,000 ML IV SCH ×2 (04:44→13:47)
[2019-07-14] MEDS: HYDROCORTISONE SOD 100 MG in SYRINGE 0 ML IV SCH (04:45)
[2019-07-14 06:06] LABS: Basophils # (auto) 0.01 K/uL (0-0.2); Basophils % (auto) 0.1 %; Hematocrit (blood only) 30.8 % (37-47); Hemoglobin 10.4 g/dL (12.0-16.0); Immature Granulocytes # (auto) 0.01 K/uL (0.00-0.02); Immature Granulocytes % (auto) 0.1 %; Lymphocytes # (auto) 1.31 K/uL (1.2-3.4); Lymphocytes % (auto) 14.7 %; Mean Corpuscular Hemoglobin 32.3 pg (25-34); Mean Corpuscular Hgb Conc 33.8 g/dL (32-36); Mean Corpuscular Volume 95.7 fL (80-100); Mean Platelet Volume 11.4 fL (7.4-10.4); Monocytes # (auto) 0.67 K/uL (0.11-0.59); Monocytes % (auto) 7.5 %; Neutrophils # (auto) 6.93 K/uL (1.4-6.5); Neutrophils % (auto) 77.6 %; Platelet Count 188 K/uL (130-400); RDW Coefficient of Variation 12.8 % (11.5-14.5); RDW Standard Deviation 44.7 fL (36.4-46.3); Red Blood Count 3.22 M/uL (4.2-5.4); White Blood Count 8.93 K/uL (4.8-10.8)
[2019-07-14 06:39] LABS: Alanine Aminotransferase 18 U/L (12-78); Aspartate Aminotransferase 10 U/L (15-37); BUN Creatinine Ratio 21.8 (10-20); Blood Urea Nitrogen 10 mg/dl (7-18); Carbon Dioxide 23 mmol/L (21-32); Chloride 113 mmol/L (98-107); Creatinine Clr Calc Pharmacy 128.6 ml/min; Est GFR (African American) > 150.0; Est GFR (Non-African American) 135.4; Glucose 84 mg/dl (70-99); Lipase 101 U/L (73-393); Magnesium 1.7 mg/dl (1.8-2.4); Potassium 3.4 mmol/L (3.5-5.1); Sodium 144 mmol/L (136-145)
[2019-07-14 06:45] LABS: Albumin Globulin Ratio 1.4 (0.9-2); Alkaline Phosphatase 41 U/L (45-117); Bilirubin,Total 0.4 mg/dl (0.2-1); Globulin 2.2 gm/dl (2.5-4.0); Phosphorus 2.9 mg/dl (2.5-4.9); Total Protein 5.2 gm/dl (6.4-8.2); Triglycerides 70 mg/dl (0-150)
[2019-07-14] MEDS: LINACLOTIDE 72 MCG CAPSULE PO SCH ×2 (08:35→21:58)
[2019-07-14] MEDS: PANTOprazole 40 MG TAB PO SCH (08:36)
[2019-07-14] MEDS: NORETHINDRONE 5 MG TAB PO SCH (08:36)
[2019-07-14] MEDS: ONDANSETRON INJ 2 MG/ML 2 ML VIAL IV PRN ×3 (08:36→21:29)
[2019-07-14] MEDS: FAMOTIDINE 20 MG TAB PO SCH ×2 (08:36→21:58)
[2019-07-14] MEDS: POTASSIUM CHLORIDE / WTR 20 MEQ/100 ML PLCT IV SCH ×2 (09:13→10:12)
[2019-07-14] MEDS: MAGNESIUM SULFATE / D5W 1 GM/100 ML BAG IV SCH ×2 (09:18→10:12)
[2019-07-14] MEDS: POT PHOSPHATE MONOBASIC W/ SOD TAB PO SCH ×2 (09:27→21:58)
[2019-07-14] MEDS ORDERED: POTASSIUM CHLORIDE / WTR 20 MEQ/100 ML PLCT IV ONE (09:31)
--- NOTE | 2019-07-14 09:55 | Nephrology Progress Note ---
Date of Service July 14, 2019 Assessment & Plan (1) Hypophosphatemia: Delta negative balance. K phos BID restarted today. Continue to monitor daily while inpatient. Once this has been maintained within a normal range for a reasonable period of time, additional evaluation can be provided. Outpatient follow up will be necessary. (2) Hypokalemia: Additional 40 mEq IV KCl ordered today. K phos standing order also in place. Magnesium replacement as below. (3) Hypomagnesemia: 2 gm IV Mg sulfate ordered for today. Repeat tomorrow AM. (4) Abdominal pain: GI consult reviewed. MRCP pending. Subjective No acute events overnight. N/V noted yesterday afternoon. Improved with lorazepam. Abdominal discomfort persists. Abdomen remains tender. Tolerating oral K phos. Review of Systems Review of Systems: All systems reviewed & are unremarkable except as noted in HPI & below Physical Exam Constitutional: well developed, + thin and + frail appearing; no acute distress Eyes: no scleral abnormality and no corneal abnormality ENMT: Mouth: no oral mucosal abnormality and oral mucous membranes not dry Neck: normal visual inspection and trachea midline Respiratory: normal respiratory effort Auscultation: lungs clear to auscultation bilaterally Cardiovascular: Rate/Rhythm: regular rate Heart Sounds: normal S1 and normal S2 Extremities: no edema Musculoskeletal: Extremities: no cyanosis and no clubbing Skin: normal turgor; no lesions Neurologic: Motor/Sensory: no tremor and no asterixis Psychiatric: Orientation: alert and oriented x 3 Results & Data Vital Signs (Past 12 Hours) Vital Signs Temp Pulse Pulse Resp BP Pulse Ox 07/14/19 00:32 92 H 07/14/19 00:15 36.9 C 114 H 15 98/62 L 96 Laboratory Results Laboratory Results - last 24 hr 07/13/19 07/14/19 07/14/19 15:32 05:37 05:37 WBC 8.93 RBC 3.22 L Hgb 10.4 L Hct 30.8 L MCV 95.7 MCH 32.3 MCHC 33.8 RDW Std Deviation 44.7 RDW Coeff of Tim 12.8 Plt Count 188 MPV 11.4 H Immature Gran % (Auto) 0.1 Neut % (Auto) 77.6 Lymph % (Auto) 14.7 Brantley % (Auto) 7.5 Eos % (Auto) 0.0 Baso % (Auto) 0.1 Immature Gran # (Auto) 0.01 Neut # (Auto) 6.93 H Lymph # (Auto) 1.31 Brantley # (Auto) 0.67 H Eos # (Auto) 0.00 Baso # (Auto) 0.01 Sodium 144 Potassium 3.4 L Chloride 113 H Carbon Dioxide 23 Anion Gap 8.0 BUN 10 Creatinine 0.47 L Est Cr Clr Drug Dosing 128.6 Est GFR ( Amer) > 150.0 Est GFR (Non-Af Amer) 135.4 BUN/Creatinine Ratio 21.8 H Glucose 84 Calcium 8.0 L Phosphorus 2.9 D Magnesium 1.7 L Total Bilirubin 0.4 AST 10 L ALT 18 Alkaline Phosphatase 41 L Total Protein 5.2 L Albumin 3.0 L Globulin 2.2 L Albumin/Globulin Ratio 1.4 Triglycerides 54 70 Cholesterol 166 LDL Cholesterol, Calc 112 VLDL Cholesterol, Calc 11 HDL Cholesterol 43 Cholesterol/HDL Ratio 4 Lipase 101 PG Care Time/CCT Total # of Minutes Spent Total Time Spent with Patient: Total time spent is greater than 50% in coordination of care (as documented) at patient's floor/unit and/or counseling patient: Coding Level of Care Code 33450 Subseq Hosp Care Lvl 3 Diagnoses Hypophosphatemia E83.39 Hypokalemia E87.6 Hypomagnesemia E83.42 Abdominal pain R10.9
[2019-07-14] MEDS ORDERED: HYDROCORTISONE 10 MG TAB PO SCH (10:15)
[2019-07-14] MEDS: HYDROCORTISONE SOD 50 MG in SYRINGE 0 ML IV SCH ×2 (10:18→18:07)
[2019-07-14] MEDS: ENOXAPARIN INJ 30 MG/0.3 ML SYR SQ SCH (10:18)
--- NOTE | 2019-07-14 11:06 | Pharmacy Report ---
PHA: Parenteral Nutrition Con - Date of Service July 14, 2019 - Scope Pharmacy was consulted on 07/13/19 to manage parenteral nutrition orders for this patient. - Objective Height: 5 ft 6 in Weight: 45.3 kg Diet: Regular Intake & Output (24hrs):: Intake & Output 07/12/19 07/13/19 07/14/19 07/15/19 06:59 06:59 06:59 06:59 Intake Total 1255 / 1255 1998.3333 / 1997.3333 200 / 200 Output Total 400 / 400 600 / 600 Balance 1254 / 1254 1598.3333 / 1598.3333 -400 / -400 Weight 45.3 kg 45.3 kg Laboratory Data (Last 24 Hr):: 07/13/19 07/14/19 15:32 05:37 Sodium 144 Potassium 3.4 L Chloride 113 H Carbon Dioxide 23 BUN 10 Creatinine 0.47 L Glucose 84 Calcium 8.0 L Phosphorus 2.9 D Magnesium 1.7 L Total Bilirubin 0.4 AST 10 L ALT 18 Alkaline Phosphatase 41 L Albumin 3.0 L Triglycerides 54 70 Nutrition Assessment:: Please refer to the Notes section of the EMR for the most recent strategic partner development manager note. - Assessment * 29 yo F on chronic PN admitted with nausea, vomiting, and pancreatitis. She follows with [facility] in [place] for outpatient PN management. Recent admission for hypophosphatemia and transfer to [facility]. * Home TPN formula: 100 g AA, 135 g dextrose, 50 g lipid in 1500 mL (infused over 12 hours; taper up for first hour and taper down the last 3 hours of in the infusion) * This admission, a 24 hour infusion will be utilized until N/V has resolved * Magnesium and potassium in TPN will be increased due to Mg level of 1.7 and K level of 3.4 this AM. Patient was also ordered supplemental doses of Mg 2g IV and KCL 40 meq IV by nephrology. - Plan For day 2 of PN administration, the following will be ordered: Macronutrients Amino acids 100 grams/day Dextrose 135 grams/day Lipids 50 grams/day Micronutrients Sodium acetate 54 mEq - decrease Potassium phosphate 30 mMol Potassium acetate 106 mEq - increase Magnesium sulfate 16.24 mEq - increase Calcium gluconate 13.8 mEq Trace Elements 1 mL Additional additives: thiamine 100 mg folic acid 1 mg Total volume 1600 mL to be infused over 24 hrs will provide 1359 kcal/day Labs, as indicated, will be ordered per protocol Pharmacy will continue to follow and adjust parenteral nutrition orders on a daily basis. Thank you for allowing us to participate in the care of this patient.
--- NOTE | 2019-07-14 12:42 | Hospitalist Progress Note ---
Date of Service July 14, 2019 Assessment & Plan (1) Nausea and vomiting: Recurrent nausea vomiting, abdominal pain, enteritis possibly seen on CT abdomen/pelvis but frequently has liquid stool seen. Intussusception in the jejunum around the feeding tube is now resolved since her push enteroscopy at [facility] last week. Improved since placing G tube port to LIS Continue to treat symptomatically with IV Zofran and add IV Ativan which works well for her Continue her usual outpatient regimen for GI motility. -advised her to cut down on DIlaudid use as will worsen nausea and dysmotility (2) Pancreatitis: Presented with epigastric abdominal pain with mildly elevated lipase of 1106 suggestive of pancreatitis although CT abdomen/pelvis with normal pancreas Lipase now down to normal Could be from SPhincter of Oddi dysfunction Only mild case of pancreatitis if was present at all Has chronic abd pain of unclear etiology -continue maintenance IV fluids as she is refusing TPN -Nonspecific elevation perhaps, discussed with GI-recommends MRCP-pending Triglycerides are normal, calcium is actually low No gallstones, no alcohol use If MRCP normal, no further workup needed (3) Enteritis: See above (4) Generalized abdominal pain: See above Acute on chronic Continue IV Dilaudid as needed with caution given motility issues-cautioned to cut down on use (5) Secondary hyperparathyroidism: Secondary hyperparathyroidism/hypocalcemia/hypophosphatemia/history of GI malabsorption- Consult nephrology for opinion-appreciated. Hypocalcemia may be related to poor absorption Hypophosphatemia could be related to use of calcium carbonate orally binding with her sodium phosphate tablets and poor absorption (6) Hypocalcemia: As above Replace as needed, only mildly low Follow levels (7) Hypophosphatemia: Replaced and now resolved -Follow in the morning (8) Malabsorption: Multifactorial (9) Jejunal intussusception: Resolved after push enteroscopy at recent hospitalization at [facility] last week (10) Gastroparesis: Continue Linzess and domperidone (11) Sphincter of Oddi spasm: Noted as a cause of some of her symptoms (12) Jejunostomy tube in situ: Not currently being used for feeding Due to be changed out at [facility] next week (13) Adrenal insufficiency: Due to recurrent admissions, placed on stress dose hydrocortisone 100 mg IV every 8 hours-wean down to 50mg IV q8 today and then dc tomorrow restart home po HC 15mg po qAM and 10mg po qPM (14) SMAS (superior mesenteric artery syndrome): Status post Strong's procedure surgery at [place] many years ago (15) Hypokalemia: Replace (16) Endometriosis: Continue progestin daily and has Mirena IUD in place hCG negative (17) DVT prophylaxis: Lovenox Disposition-remain hospitalized but likely dc tomorrow as is improving Admission and Anticipated Discharge Date Admission Date: July 13, 2019 Subjective Feeling better today, not as much nausea since having G-J tube venting to LIS. Abd pain still present but improved, requiring less pain medicine Reports "I love food" but has aversion to anything that has sweet flavor when I suggested Boost. Usually eats rice or soup at home Reviewed records from [facility] Is ambulating, no BM since 2 days ago. discussed her case with GI Review of Systems Review of Systems: All systems reviewed & are unremarkable except as noted in HPI & below Physical Exam Constitutional: + underweight; no acute distress Eyes: + anicteric sclerae; no eyelid abnormality (rash resolved) Neck: trachea midline, no thyromegaly Respiratory: normal respiratory effort, lungs clear to auscultation Cardiovascular: RRR, no murmur, no edema Chest (Breasts): Chest: normal inspection of chest Gastrointestinal (Abdomen): Inspection/Auscultation: normal bowel sounds; + abdomen abnormal to inspection (J-tube in place) Percussion/Palpation: abdomen soft; abdomen nontender Musculoskeletal: Extremities: extremities normal to inspection; no cyanosis and no clubbing Skin: no rashes, warm and dry Neurologic: moves all extremities and awake; no focal motor deficits Psychiatric: Orientation: alert and oriented x 3 Affect: euthymic affect Lymphatic: no lymphedema Results & Data ([facility]) Laboratory Results labs reviewed PG Care Time/CCT Total # of Minutes Spent Total Time Spent with Patient: Total time spent is greater than 50% in coordination of care (as documented) at patient's floor/unit and/or counseling patient: Coding Level of Care Code 12287 Subseq Hosp Care Lvl 2 Diagnoses Nausea and vomiting R11.2 Pancreatitis K85.90 Enteritis K52.9 Generalized abdominal pain R10.84 Secondary hyperparathyroidism N25.81 Hypocalcemia E83.51 Hypophosphatemia E83.39 Malabsorption K90.9 Intestinal malabsorption type: unspecified Jejunal intussusception K56.1 Gastroparesis K31.84 Sphincter of Oddi spasm K83.4 Jejunostomy tube in situ Z93.4 Adrenal insufficiency E27.40 SMAS (superior mesenteric artery syndrome) K55.1 Hypokalemia E87.6 Endometriosis N80.9 DVT prophylaxis Z29.9 (1) Malabsorption Intestinal malabsorption type: unspecified Qualified Code(s): K90.9 - Intestinal malabsorption, unspecified
--- NOTE | 2019-07-14 15:56 | Gastroenterology Progress Note ---
Date of Service July 14, 2019 Assessment & Plan (1) Pancreatitis: Lipase was elevated but no evidence of pancreatitis on CT. Trigs normal MRCP pending. Lipase today normal. ok for po as tolerated abd pain--chronic but acute exacerbation--improved. n/v==vent Gtube and put on LIS. elevated WBC--could be from pancreatitis--monitor if spike temps recommend panculture--improved Discussed with DR Drew. Admission and Anticipated Discharge Date Admission Date: July 13, 2019 Subjective cc f/u abd pain HPI Mother with patient for HPI. Pt states abd pain and n/v improved. Venting of G tube to LIS was helpful even thought does not look like much drainage in bottle. No bms. Pt feels hungry. Lipids not elevated. MRCP to be done today. There were waiting on report form [facility] to see if any metal placed at time of Push Enteroscopy. Physical Exam Respiratory: normal respiratory effort, lungs clear to auscultation Cardiovascular: RRR, no murmur, no edema Gastrointestinal (Abdomen): normal bowel sounds, no guarding nor rebound Results & Data ([facility]) Vital Signs (Past 12 Hours) Vital Signs Temp Pulse Resp BP Pulse Ox 07/14/19 15:36 36.9 C 98 H 18 100/68 97
--- NOTE | 2019-07-14 18:18 | Magnetic Resonance Report ---
MR MRCP HISTORY: 29 years-old Female pancreatitis acute lies abdominal pain with nausea and vomiting. Acute pancreatitis with reported history of endometriosis and SMA syndrome. Gastrojejunostomy tube. COMPARISON: CT abdomen and pelvis 07/12/2019 TECHNIQUE: MRCP was obtained without the use of IV contrast utilizing institutional protocol FINDINGS: There is mild sigmoidal thoracolumbar scoliosis. The imaged lung bases and lower chest appear unremar kable. Mild right hemidiaphragmatic elevation. A gastrojejunal tube is noted, the balloon appearing t o be in the stomach. Trace free fluid of the upper abdomen. Cholecystectomy. There is no significant inflammation of the pancreas. The common bile duct appears normal, 4 mm. No choledocholithiasis. No p ancreatic ductal dilation or evidence of pancreatic divisum. There is no intrahepatic biliary ductal dilation. An apparent linear filling defect of the common bile duct on image 104 series 6 is favored be artifactual from adjacent cholecystectomy clips. Study is motion degraded. IMPRESSION: 1. Cholecystectomy. No biliary or pancreatic ductal dilation or choledocholithiasis. 2. Trace free fluid of the upper abdomen. 3. Gastrojejunal tube redemonstrated. ACT 112: Negative or not required by law. The above report was generated using voice recognition software. It may contain grammatical, syntax o r spelling errors. Electronically signed by: Danny Sow M.D. 07/14/2019 6:17 PM
[2019-07-14] MEDS: CETIRIZINE HCL 10 MG TABLET PO SCH (21:58)
[2019-07-15] MEDS: SODIUM CHLORIDE 0.9% 1000ML 1,000 ML IV SCH ×2 (00:56→10:33)
[2019-07-15] MEDS: LORazepam 0.5 MG/1 ML VIAL IV PRN ×2 (01:14→21:09)
[2019-07-15] MEDS: HYDROmorphone INJ 0.5 MG/0.5 ML SYR IV PRN ×3 (03:11→23:47)
[2019-07-15] MEDS: HYDROCORTISONE SOD 50 MG in SYRINGE 0 ML IV SCH ×2 (03:11→10:34)
[2019-07-15 06:12] LABS: Basophils # (auto) 0.01 K/uL (0-0.2); Basophils % (auto) 0.2 %; Hematocrit (blood only) 30.2 % (37-47); Immature Granulocytes # (auto) 0.02 K/uL (0.00-0.02); Immature Granulocytes % (auto) 0.3 %; Lymphocytes # (auto) 0.76 K/uL (1.2-3.4); Lymphocytes % (auto) 12.4 %; Mean Corpuscular Hemoglobin 31.8 pg (25-34); Mean Corpuscular Hgb Conc 33.1 g/dL (32-36); Mean Corpuscular Volume 96.2 fL (80-100); Mean Platelet Volume 11.2 fL (7.4-10.4); Monocytes # (auto) 0.62 K/uL (0.11-0.59); Monocytes % (auto) 10.1 %; Neutrophils # (auto) 4.72 K/uL (1.4-6.5); Platelet Count 197 K/uL (130-400); RDW Standard Deviation 44.8 fL (36.4-46.3); Red Blood Count 3.14 M/uL (4.2-5.4); White Blood Count 6.13 K/uL (4.8-10.8)
[2019-07-15 06:42] LABS: Albumin Level 2.9 gm/dl (3.4-5.0); Calcium 7.8 mg/dl (8.5-10.1); Creatinine Clr Calc Pharmacy 111.9 ml/min; Est GFR (African American) 149.9; Est GFR (Non-African American) 129.3; Magnesium 1.9 mg/dl (1.8-2.4); Potassium 3.2 mmol/L (3.5-5.1)
[2019-07-15 06:56] LABS: Albumin Globulin Ratio 1.3 (0.9-2); Bilirubin,Total 0.3 mg/dl (0.2-1); Globulin 2.2 gm/dl (2.5-4.0); Phosphorus 1.7 mg/dl (2.5-4.9); Total Protein 5.1 gm/dl (6.4-8.2)
[2019-07-15] MEDS ORDERED: POTASSIUM CHLORIDE / WTR 20 MEQ/100 ML PLCT IV ONE (08:32)
[2019-07-15] MEDS ORDERED: POTASSIUM PHOS 3 MMOL/1 ML INFUSION IV STA ×2 (08:32)
[2019-07-15] MEDS ORDERED: CALCIUM GLUCONATE 10% 1,000 MG in SODIUM CHLORIDE 0.9% 50 ML IV ONE (09:00)
[2019-07-15] MEDS ORDERED: POTASSIUM PHOSPHATE 30 MMOL in SODIUM CHLORIDE 0.9% 500 ML IV ONE (09:00)
[2019-07-15] MEDS: NORETHINDRONE 5 MG TAB PO SCH (09:30)
[2019-07-15] MEDS: HYDROCORTISONE 10 MG TAB PO SCH ×2 (09:35→16:39)
[2019-07-15] MEDS: LINACLOTIDE 72 MCG CAPSULE PO SCH ×2 (09:35→20:04)
[2019-07-15] MEDS: FAMOTIDINE 20 MG TAB PO SCH ×2 (09:36→20:04)
[2019-07-15] MEDS: PANTOprazole 40 MG TAB PO SCH (09:37)
[2019-07-15] MEDS: POT PHOSPHATE MONOBASIC W/ SOD TAB PO SCH ×4 (09:37→20:04)
[2019-07-15] MEDS: ENOXAPARIN INJ 30 MG/0.3 ML SYR SQ SCH (09:38)
--- NOTE | 2019-07-15 10:44 | Nephrology Progress Note ---
Date of Service July 15, 2019 Assessment & Plan (1) Hypophosphatemia: Additional IV K phos 30 mmol ordered. Once this has been maintained within a normal range for a reasonable period of time, additional evaluation can be provided. Outpatient follow up will be necessary. (2) Hypokalemia: Additional 40 mEq IV KCl ordered today. K phos standing order also in place. Continue to monitor and replace magnesium as well. (3) Hypomagnesemia: Monitor daily with AM labs (4) Abdominal pain: MRCP reviewed. Clinically improving. Plan of care discussed with Dr. Douglas morel this morning. Pilar is scheduled to follow up at [facility] on Thursday, hopefully can be discharged in the next couple of days in anticipation of this visit. Subjective No acute events overnight. Pilar was seen and evaluated with her mother at the bedside this morning. Her mother was very emotional and concerned. Pilar reports improvement in GI symptoms. She denies fevers or chills. She is tolerating oral phosphorus. She denies diarrhea. Review of Systems Review of Systems: All systems reviewed & are unremarkable except as noted in HPI & below Physical Exam Constitutional: well developed, + thin and + frail appearing; no acute distress Eyes: no scleral abnormality and no corneal abnormality ENMT: Mouth: no oral mucosal abnormality and oral mucous membranes not dry Neck: normal visual inspection and trachea midline Respiratory: normal respiratory effort Auscultation: lungs clear to auscultation bilaterally Cardiovascular: Rate/Rhythm: regular rate Heart Sounds: normal S1 and normal S2 Extremities: no edema Musculoskeletal: Extremities: no cyanosis and no clubbing Skin: normal turgor; no lesions Neurologic: Motor/Sensory: no tremor and no asterixis Psychiatric: Orientation: alert and oriented x 3 Results & Data Vital Signs (Past 12 Hours) Vital Signs Temp Pulse Pulse Resp BP Pulse Ox 07/15/19 07:33 37.4 C 81 18 101/67 98 07/14/19 23:00 36.8 C 81 14 110/72 98 Laboratory Results Laboratory Results - last 24 hr 07/15/19 07/15/19 05:28 05:28 WBC 6.13 RBC 3.14 L Hgb 10.0 L Hct 30.2 L MCV 96.2 MCH 31.8 MCHC 33.1 RDW Std Deviation 44.8 RDW Coeff of Tim 13.0 Plt Count 197 MPV 11.2 H Immature Gran % (Auto) 0.3 Neut % (Auto) 77.0 Lymph % (Auto) 12.4 Bath % (Auto) 10.1 Eos % (Auto) 0.0 Baso % (Auto) 0.2 Immature Gran # (Auto) 0.02 Neut # (Auto) 4.72 Lymph # (Auto) 0.76 L Bath # (Auto) 0.62 H Eos # (Auto) 0.00 Baso # (Auto) 0.01 Sodium 144 Potassium 3.2 L Chloride 113 H Carbon Dioxide 26 Anion Gap 5.0 BUN 7 Creatinine 0.54 L Est Cr Clr Drug Dosing 111.9 Est GFR ( Amer) 149.9 Est GFR (Non-Af Amer) 129.3 BUN/Creatinine Ratio 13.0 Glucose 105 H Calcium 7.8 L Phosphorus 1.7 L D Magnesium 1.9 Total Bilirubin 0.3 AST 6 L ALT 15 Alkaline Phosphatase 37 L Total Protein 5.1 L Albumin 2.9 L Globulin 2.2 L Albumin/Globulin Ratio 1.3 Lipase 182 PG Care Time/CCT Total # of Minutes Spent Total Time Spent with Patient: Total time spent is greater than 50% in coordination of care (as documented) at patient's floor/unit and/or counseling patient: Coding Level of Care Code 19907 Subseq Hosp Care Lvl 3 Diagnoses Hypophosphatemia E83.39 Hypokalemia E87.6 Hypomagnesemia E83.42 Abdominal pain R10.9
--- NOTE | 2019-07-15 11:16 | Hospitalist Progress Note ---
Date of Service July 15, 2019 Assessment & Plan (1) Nausea and vomiting: Recurrent nausea vomiting, abdominal pain, enteritis possibly seen on CT abdomen/pelvis but frequently has liquid stool seen. Intussusception in the jejunum around the feeding tube is now resolved since her push enteroscopy at [facility] last week. At this point likely secondary to acute on chronic GI motility issues As it turns out, the patient is not doing all of her usual regimen from home to include her rectal suppository system every night, her senna tea she drinks every night at home, MiraLAX twice daily-advised her mom to bring in the senna tea and rectal suppository system and I will order MiraLAX 4 times daily Improved since placing G tube port to LIS-changed to take off suction today and they can vent as needed with syringe Continue to treat symptomatically with IV Zofran and add IV Ativan which works well for her Continue her other usual outpatient regimen for GI motility. -advised her to cut down on DIlaudid use as will worsen nausea and dysmotility (2) Pancreatitis: Presented with epigastric abdominal pain with mildly elevated lipase of 1106 suggestive of pancreatitis although CT abdomen/pelvis with normal pancreas Lipase now down to normal very quickly after admission Could be from SPhincter of Oddi dysfunction Only mild case of pancreatitis if was present at all Has chronic abd pain of unclear etiology but likely secondary to endometriosis and GI dysmotility -Restarting TPN as below, discontinuing IV fluids -Nonspecific elevation perhaps, discussed with GI-recommends MRCP normal Triglycerides are normal, calcium is actually low No gallstones, no alcohol use -No further workup needed Appreciate GI consultation (3) Enteritis: Ruled out (4) Generalized abdominal pain: See above Acute on chronic, likely secondary to endometriosis and GI dysmotility -Recommend follow-up with [facility] and discuss getting off of chronic progesterone -Follow-up planned at [facility] for next week with her GI motility specialist Continue IV Dilaudid as needed with caution given motility issues-cautioned to cut down on use (5) Secondary hyperparathyroidism: Secondary hyperparathyroidism/hypocalcemia/hypophosphatemia/history of GI malabsorption- Consult nephrology for opinion-appreciated. Hypocalcemia may be related to poor absorption but most likely due to restriction as she refuses TPN and does not take anything by mouth Hypophosphatemia could be related to use of calcium carbonate orally binding with her sodium phosphate tablets and poor absorption and again as she refuses TPN and takes very little food by mouth -Replace electrolytes as needed (6) Hypocalcemia: As above Replace as needed, only mildly low Follow levels (7) Hypophosphatemia: Replace -Follow in the morning -Restarting TPN today at half the calories (8) Jejunal intussusception: Resolved after push enteroscopy at recent hospitalization at [facility] last week CT abdomen/pelvis here without intussusception Likely was secondary to adhesions from innumerable surgeries as per reports from [facility] (9) Gastroparesis: Continue Linzess and domperidone (10) Sphincter of Oddi spasm: Noted as a cause of some of her symptoms (11) Jejunostomy tube in situ: Not currently being used for feeding Due to be changed out at [facility] next week (12) Adrenal insufficiency: Due to recurrent admissions, placed on stress dose hydrocortisone 100 mg IV every 8 hours-has been weaned down and now will discontinue -Continue home po HC 15mg po qAM and 10mg po qPM (13) SMAS (superior mesenteric artery syndrome): Status post Strong's procedure surgery at [place] many years ago (14) Hypokalemia: Replace as needed -Follow BMP (15) Endometriosis: Continue progestin daily and has Mirena IUD in place hCG negative As discussed above, this is likely the cause of her chronic abdominal pains and she typically has laparoscopic surgeries to treat endometriosis once a year for the last few years -She will discuss with [facility] about oophorectomy and coming off progesterone as this could be contributing to her GI dysmotility issues (16) DVT prophylaxis: Lovenox Disposition-remain hospitalized but likely dc tomorrow as is improving Admission and Anticipated Discharge Date Admission Date: July 13, 2019 Anticipated date of discharge: 07/16/19 Subjective Patient reports having a bad night but feeling okay today. She ate some anshul crackers and toast today. She feels like she would rather be home, but she has not yet restarted her TPN and is requiring electrolyte replacement today. It should be noted that she normally takes MiraLAX twice daily at home, senna tea every night, does bowel preps with Suprep once monthly, and does her rectal suppository system at home every night-however, she has not been getting any of these things here and when asked why she and her mom did not mention it, her mom said they did not know they were allowed to do these things. We discussed this the last admission to that she should be continuing on everything for her GI motility that she does at home including her rectal suppository system. Patient and mom also requesting that her TPN only be restarted at half the amount of calories. I discussed this with the dietitian and the pharmacist-we will remove the lipids from the TPN to see if this helps with the nausea associated with her TPN. Discussed patient's history in depth. She reports she had a recent small bowel follow-through and has had gastric emptying studies in the past which showed slowed GI motility. She is also due to see her [facility] endometriosis specialist at [place] fairly soon and has had to have multiple laparoscopic surgeries for stage III-IV endometriosis. She has been on daily oral progesterone for at least 3 or 4 years. Discussed that progesterone can also slow GI motility. She reports she is now excepting that she will not be able to get in the future and is hoping that [facility] will now remove her ovaries to help with her endometriosis She is also tried Lupron in the past for 6 months which did not help her endometriosis pain. The mom of the patient then pulled me aside in the hallway after I left the room and she was tearful about the patient's condition and repeated hospitalizations. Reports the patient is frustrated with her GI specialist at [facility] not "telling us what the next step is." I also suggested that the patient see a therapist and/or psychiatrist and she stated that the patient has her friends and her mom to talk to about things. I pointed out that it is good to have someone outside of the family or friends to talk to and she said she would speak with the patient about this. Otherwise, patient reports still having the same epigastric abdominal pain and still having nausea. I advised that she stop taking Dilaudid to see if she would be stable for discharge by tomorrow. The mom states that she is very fearful about what will happen if her phosphorus level goes low again over the weekend. I explained to her that this would not be a life-threatening condition at the levels that it has been. Explained that is very important for her to get nutrition whether it is by mouth or with TPN or combination of both. Mom will bring in her enema suppository system and her senna tea from home as regular senna gives her too much cramps. Patient is agreeable to using MiraLAX 4 times daily through her J-tube I also discussed the case with GI who will sign off. He discontinued the venting to J-tube and they can vent as needed as they do at home. Review of Systems Review of Systems: All systems reviewed & are unremarkable except as noted in HPI & below Physical Exam Constitutional: + underweight; no acute distress Eyes: + anicteric sclerae; no eyelid abnormality (rash resolved) Neck: trachea midline, no thyromegaly Respiratory: normal respiratory effort, lungs clear to auscultation Cardiovascular: RRR, no murmur, no edema Chest (Breasts): Chest: normal inspection of chest Gastrointestinal (Abdomen): Inspection/Auscultation: normal bowel sounds; + abdomen abnormal to inspection (J-tube in place) Percussion/Palpation: abdomen soft; abdomen nontender Musculoskeletal: Extremities: extremities normal to inspection; no cyanosis and no clubbing Skin: no rashes, warm and dry Neurologic: moves all extremities and awake; no focal motor deficits Psychiatric: Orientation: alert and oriented x 3 Affect: + flat affect Lymphatic: no lymphedema Results & Data ([facility]) Vital Signs (Past 12 Hours) Vital Signs Temp Pulse Resp BP Pulse Ox 07/15/19 07:33 37.4 C 81 18 101/67 98 Laboratory Results Labs reviewed PG Care Time/CCT Total # of Minutes Spent Total Time Spent with Patient: Total time spent is greater than 50% in coordination of care (as documented) at patient's floor/unit and/or counseling patient: Coding Level of Care Code 86444 Subseq Hosp Care Lvl 3 Diagnoses Nausea and vomiting R11.2 Pancreatitis K85.90 Enteritis K52.9 Generalized abdominal pain R10.84 Secondary hyperparathyroidism N25.81 Hypocalcemia E83.51 Hypophosphatemia E83.39 Jejunal intussusception K56.1 Gastroparesis K31.84 Sphincter of Oddi spasm K83.4 Jejunostomy tube in situ Z93.4 Adrenal insufficiency E27.40 SMAS (superior mesenteric artery syndrome) K55.1 Hypokalemia E87.6 Endometriosis N80.9 DVT prophylaxis Z29.9
--- NOTE | 2019-07-15 12:28 | Pharmacy Report ---
PHA: Parenteral Nutrition Con - Date of Service July 15, 2019 - Scope Pharmacy was consulted on 07/13/19 to manage parenteral nutrition orders for this patient. - Objective Height: 5 ft 6 in Weight: 45.3 kg Diet: Regular Intake & Output (24hrs):: Intake & Output 07/13/19 07/14/19 07/15/19 07/16/19 06:59 06:59 06:59 06:59 Intake Total 1255 / 1255 1997.3333 / 1997.3333 2458.333 / 2458.333 1021.667 / 1021.667 Output Total 400 / 400 2150 / 2150 Balance 1254 / 1254 1598.3333 / 1598.3333 308.333 / 095.259 6172.667 / 1021.667 Weight 45.3 kg 45.3 kg Laboratory Data (Last 24 Hr):: 07/15/19 05:28 Sodium 144 Potassium 3.2 L Chloride 113 H Carbon Dioxide 26 BUN 7 Creatinine 0.54 L Glucose 105 H Calcium 7.8 L Phosphorus 1.7 L D Magnesium 1.9 Total Bilirubin 0.3 AST 6 L ALT 15 Alkaline Phosphatase 37 L Albumin 2.9 L Nutrition Assessment:: Please refer to the Notes section of the EMR for the most recent conference assistant note. - Assessment 29 yo F on chronic PN admitted with nausea, vomiting, and pancreatitis. She follows with [facility] in [place] for outpatient PN management. Recent admission for hypophosphatemia and transfer to [facility]. * Home TPN formula: 100 g AA, 135 g dextrose, 50 g lipid in 1500 mL (infused over 12 hours; taper up for first hour and taper down the last 3 hours of in the infusion) * This admission, a 24 hour infusion will be utilized in attempt to decrease N/V * Patient refused TPN on 07/13 and 07/14 due to GI symptoms. She is willing to receive TPN today at reduced calorie amount. I will decrease the dextrose component by 50% and remove lipids, which will decrease calories from 1359 to 638 kcal/day. * Dietary suggested a trial of no lipids to see if GI issues are related to lipid intolerance. * Patient may continue to require electrolyte supplementation outside of TPN until abnormalities have resolved. - Plan For day 1 of PN administration, the following will be ordered: Macronutrients Amino acids 100 grams/day Dextrose 70 grams/day Lipids 0 grams/day Micronutrients Sodium acetate 54 mEq Potassium phosphate 30 mMol Potassium acetate 106 mEq Magnesium sulfate 12.18 mEq Calcium gluconate 9.15 mEq Trace Elements 1 mL Additional additives: thiamine 100 mg folic acid 1 mg Total volume 1250 mL to be infused over 24 hrs will provide 638 kcal/day Labs, as indicated, will be ordered per protocol Of note, patient was ordered potassium phosphate 30 mmol (contains 44 meq potassium) and calcium gluconate 1000 mg IV this morning. Pharmacy will continue to follow and adjust parenteral nutrition orders on a daily basis. Thank you for allowing us to participate in the care of this patient.
[2019-07-15] MEDS: POLYETHYLENE (MIRALAX) 17 GM PACK JT SCH ×3 (13:24→20:03)
[2019-07-15] MEDS: ONDANSETRON INJ 2 MG/ML 2 ML VIAL IV PRN ×2 (13:35→20:34)
[2019-07-15] MEDS ORDERED: CENTRAL PN IV SCH (16:00)
[2019-07-15] MEDS ORDERED: TPN IV SCH (16:00)
--- NOTE | 2019-07-15 16:03 | Gastroenterology Progress Note ---
Date of Service July 15, 2019 Assessment & Plan (1) Pancreatitis: Lipase was elevated but no evidence of pancreatitis on CT. Trigs normal. MRCP neg. Lipase normal. Suspect minor pancreatitis vs no pancreatits given lack of finding on CT or MRI abd pain--chronic but acute exacerbation--improved. n/v==clamp G tube elevated WBC--could be from pancreatitis--monitor if spike temps recommend panculture--improved Pt getting back to baseline. F/u with [facility] as outpt. Will sign off. Please call for further questions. Admission and Anticipated Discharge Date Admission Date: July 13, 2019 Subjective cc f/u abd pain HPI Pt ates some anshul crackers yesterday and toast today. Has some abd pain and nausea but still much improved vs admit. She states not quite back to baseline. Physical Exam Respiratory: normal respiratory effort, lungs clear to auscultation Cardiovascular: RRR, no murmur, no edema Gastrointestinal (Abdomen): normal bowel sounds, soft, nontender, no hepatosplenomegaly Psychiatric: A+Ox3, euthymic affect Results & Data ([facility]) Vital Signs (Past 12 Hours) Vital Signs Temp Pulse Pulse Resp BP Pulse Ox 07/15/19 15:03 36.7 C 67 16 109/68 92 07/15/19 07:33 37.4 C 81 18 101/67 98
[2019-07-15 17:02] LABS: Albumin Level 2.9 gm/dl (3.4-5.0); BUN Creatinine Ratio 9.8 (10-20); Calcium 7.8 mg/dl (8.5-10.1); Est GFR (Non-African American) 121.7; Potassium 3.2 mmol/L (3.5-5.1)
[2019-07-15 17:06] LABS: Phosphorus 3.1 mg/dl (2.5-4.9)
[2019-07-15] MEDS: CETIRIZINE HCL 10 MG TABLET PO SCH (20:05)
[2019-07-16] MEDS: HYOSCYAMINE SULFATE 0.125 MG TAB SL PRN (00:02)
[2019-07-16 06:56] LABS: Basophils # (auto) 0.01 K/uL (0-0.2); Basophils % (auto) 0.2 %; Eosinophils # (auto) 0.01 K/uL (0-0.5); Eosinophils % (auto) 0.2 %; Hematocrit (blood only) 29.6 % (37-47); Hemoglobin 9.9 g/dL (12.0-16.0); Immature Granulocytes # (auto) 0.01 K/uL (0.00-0.02); Immature Granulocytes % (auto) 0.2 %; Lymphocytes # (auto) 2.79 K/uL (1.2-3.4); Lymphocytes % (auto) 44.5 %; Mean Corpuscular Hemoglobin 32.1 pg (25-34); Mean Corpuscular Hgb Conc 33.4 g/dL (32-36); Mean Corpuscular Volume 96.1 fL (80-100); Mean Platelet Volume 10.6 fL (7.4-10.4); Monocytes # (auto) 0.78 K/uL (0.11-0.59); Monocytes % (auto) 12.4 %; Neutrophils # (auto) 2.67 K/uL (1.4-6.5); Neutrophils % (auto) 42.5 %; Platelet Count 188 K/uL (130-400); Red Blood Count 3.08 M/uL (4.2-5.4); White Blood Count 6.27 K/uL (4.8-10.8)
[2019-07-16 07:21] LABS: Albumin Level 2.7 gm/dl (3.4-5.0); BUN Creatinine Ratio 16.2 (10-20); Calcium 7.5 mg/dl (8.5-10.1); Creatinine Clr Calc Pharmacy 111.9 ml/min; Est GFR (African American) 149.9; Est GFR (Non-African American) 129.3; Potassium 3.4 mmol/L (3.5-5.1)
[2019-07-16 07:24] LABS: Albumin Globulin Ratio 1.4 (0.9-2); Bilirubin,Total 0.2 mg/dl (0.2-1); Phosphorus 2.2 mg/dl (2.5-4.9); Total Protein 4.7 gm/dl (6.4-8.2)
[2019-07-16] MEDS ORDERED: POTASSIUM PHOS 3 MMOL/1 ML INFUSION IV STA (07:32)
[2019-07-16] MEDS ORDERED: CALCIUM GLUCONATE 10% 1,000 MG in SODIUM CHLORIDE 0.9% 50 ML IV STA (07:50)
[2019-07-16] MEDS ORDERED: POTASSIUM PHOSPHATE 21 MMOL in SODIUM CHLORIDE 0.9% 500 ML IV ONE (08:00)
[2019-07-16] MEDS: FAMOTIDINE 20 MG TAB PO SCH (08:16)
[2019-07-16] MEDS: NORETHINDRONE 5 MG TAB PO SCH (08:16)
[2019-07-16] MEDS: LINACLOTIDE 72 MCG CAPSULE PO SCH (08:17)
[2019-07-16] MEDS: HYDROCORTISONE 10 MG TAB PO SCH ×2 (08:17→16:19)
[2019-07-16] MEDS: POT PHOSPHATE MONOBASIC W/ SOD TAB PO SCH ×3 (08:17→16:19)
[2019-07-16] MEDS: ENOXAPARIN INJ 30 MG/0.3 ML SYR SQ SCH (08:18)
[2019-07-16] MEDS: POLYETHYLENE (MIRALAX) 17 GM PACK JT SCH ×2 (08:19→12:59)
--- NOTE | 2019-07-16 10:59 | Nephrology Progress Note ---
Date of Service July 16, 2019 Assessment & Plan (1) Hypophosphatemia: Young female with lot of chronic GI issues, electrolyte abnormality admitted with abdominal pain and hypophosphatemia.. -- Additional IV K phos 30 mmol x1 dose now in addition to oral potassium phosphate. --continue on TPN as well as IV and oral supplementation as outpatient as she has been getting. --no other nephrology evaluation or follow-up indicated at this time Will sign off. (2) Hypokalemia: Additional 40 mEq IV KCl ordered today. K phos standing order also in place. Continue to monitor and replace magnesium as well. (3) Hypomagnesemia: Monitor daily with AM labs (4) Abdominal pain: MRCP reviewed. Clinically improving. Plan of care discussed with Dr. Drew this morning. Pilar is scheduled to follow up at [facility] on Thursday, hopefully can be discharged in the next couple of days in anticipation of this visit. Subjective Pilar Was seen and examined in her room with her mom at bedside. She continues to have some abdominal pain but feels like slightly better than before and she is eager to go home. Phosphate is again low at 2.2 and potassium 3.4, currently getting TPN. Review of Systems Review of Systems: All systems reviewed & are unremarkable except as noted in HPI & below Physical Exam Constitutional: WD/WN, vitals as above + ill appearing; no acute distress Psychiatric: A+Ox3, euthymic affect Results & Data Vital Signs (Past 12 Hours) Vital Signs Temp Pulse Resp BP Pulse Ox 07/16/19 07:04 36.8 C 66 18 97/65 L 97 07/15/19 23:09 36.7 C 55 L 16 107/69 98 PG Care Time/CCT Total # of Minutes Spent Total Time Spent with Patient: Total time spent is greater than 50% in coordination of care (as documented) at patient's floor/unit and/or counseling patient: Coding Level of Care Code 50204 Subseq Hosp Care Lvl 2 Diagnoses Hypophosphatemia E83.39 Hypokalemia E87.6 Hypomagnesemia E83.42 Abdominal pain R10.9
--- NOTE | 2019-07-16 15:18 | Discharge Summary ---
Date of Service July 16, 2019 Admission HPI Per Admitting Provider The patient is a 29-year-old female with a past medical history including anemia, gastroparesis, sphincter of Oddi spasm, jejunostomy tube in situ, TPN, adrenal insufficiency, hypophosphatemia, intestinal dysmotility, asthma, SMA syndrome, Crohn's disease and hemorrhagic cystitis. Most recent hospitalizations are from 06/24-06/26, and then 06/27-07/02/2019. She has been seen by Dr. Fernández from GI locally, and follows with GI at [facility]. Her work- up this time includes an abnormal lipase of 1106, which is not been noted before. Her other persistent issue has been low phosphorus, with a value today of 1.3. Discharge Exam Constitutional + underweight; no acute distress Eyes + anicteric sclerae; no eyelid abnormality (rash resolved) ENMT external ear and nose normal, oropharynx normal Neck trachea midline, no thyromegaly Respiratory normal respiratory effort, lungs clear to auscultation Cardiovascular RRR, no murmur, no edema Chest (Breasts) Chest: normal inspection of chest Gastrointestinal (Abdomen) Inspection/Auscultation: normal bowel sounds; + abdomen abnormal to inspection (J-tube in place) Percussion/Palpation: abdomen soft; abdomen nontender Musculoskeletal Extremities: extremities normal to inspection; no cyanosis and no clubbing Skin no rashes, warm and dry Neurologic moves all extremities and awake; no focal motor deficits Psychiatric Orientation: alert and oriented x 3 Affect: + flat affect Lymphatic no lymphedema Discharge Data Allergies Allergy/AdvReac Type Severity Reaction Status Date / Time amoxicillin Allergy Intermediate RASH Verified 07/12/19 23:40 Bactrim Allergy Intermediate RASH Verified 08/13/17 12:16 cefazolin Allergy Intermediate rash Verified 07/12/19 23:40 Cephalosporins Allergy Intermediate HIVES Verified 07/12/19 23:40 clavulanic acid Allergy Intermediate HIVES Verified 07/12/19 23:40 Penicillins Allergy Intermediate HIVES Verified 07/12/19 23:40 prochlorperazine Allergy Intermediate HIVES Verified 07/12/19 23:40 promethazine Allergy Intermediate hives, Verified 07/12/19 23:40 throat swelling sulfamethoxazole Allergy Intermediate RASH Verified 07/12/19 23:40 sumatriptan Allergy Intermediate RASH Verified 07/12/19 23:40 trimethoprim Allergy Intermediate RASH Verified 07/12/19 23:40 diphenhydramine AdvReac Intermediate Tachycardia, Verified 07/12/19 23:40 Severe Anxiety WITH IV ONLY erythromycin base AdvReac Intermediate GI SYMPTOMS Verified 07/12/19 23:40 citalopram [From Celexa] AdvReac Unknown Verified 07/12/19 23:40 MULTIVITAMIN Allergy Unknown Uncoded 07/12/19 23:40 Consultations 07/12/19 23:26 ED Decision to Admit Stat 07/13/19 02:51 Consult Case Management - Discharge Planning Routine Consult Gastroenterology Routine Consult Nephrology Routine Ordered Studies 07/12/19 22:35 CT abd pelvis wo con Stat 07/14/19 07:06 MR MRCP Routine Hospital Course (1) Nausea and vomiting: Recurrent nausea vomiting, abdominal pain, enteritis possibly seen on CT abdomen/pelvis but frequently has liquid stool seen. Intussusception in the jejunum around the feeding tube is now resolved since her push enteroscopy at [facility] last week. At this point likely secondary to acute on chronic GI motility issues As it turns out, the patient is not doing all of her usual regimen from home to include her rectal suppository system every night, her senna tea she drinks every night at home, MiraLAX twice daily-advised her mom to bring in the senna tea and rectal suppository system and I will order MiraLAX 4 times daily Improved since placing G tube port to LIS-changed to take off suction today and they can vent as needed with syringe Continue to treat symptomatically with IV Zofran and add IV Ativan which works well for her Continue her other usual outpatient regimen for GI motility. -advised her to cut down on DIlaudid use as will worsen nausea and dysmotility (2) Pancreatitis: Presented with epigastric abdominal pain with mildly elevated lipase of 1106 suggestive of pancreatitis although CT abdomen/pelvis with normal pancreas Lipase now down to normal very quickly after admission Could be from SPhincter of Oddi dysfunction Only mild case of pancreatitis if was present at all Has chronic abd pain of unclear etiology but likely secondary to endometriosis and GI dysmotility -Restarting TPN as below, discontinuing IV fluids -Nonspecific elevation perhaps, discussed with GI-recommends MRCP normal Triglycerides are normal, calcium is actually low No gallstones, no alcohol use -No further workup needed Appreciate GI consultation (3) Enteritis: Ruled out (4) Generalized abdominal pain: See above Acute on chronic, likely secondary to endometriosis and GI dysmotility -Recommend follow-up with DRYING FRAME OPERATOR and discuss getting off of chronic progesterone -Follow-up planned at [facility] for next week with her GI motility specialist Continue IV Dilaudid as needed with caution given motility issues-cautioned to cut down on use (5) Secondary hyperparathyroidism: Secondary hyperparathyroidism/hypocalcemia/hypophosphatemia/history of GI malabsorption- Consult nephrology for opinion-appreciated. Hypocalcemia may be related to poor absorption but most likely due to restriction as she refuses TPN and does not take anything by mouth Hypophosphatemia could be related to use of calcium carbonate orally binding with her sodium phosphate tablets and poor absorption and again as she refuses TPN and takes very little food by mouth -Replace electrolytes as needed (6) Hypocalcemia: As above Replace as needed, only mildly low Follow levels (7) Hypophosphatemia: Replace -Follow in the morning -Restarting TPN today at half the calories (8) Jejunal intussusception: Resolved after push enteroscopy at recent hospitalization at [facility] last week CT abdomen/pelvis here without intussusception Likely was secondary to adhesions from innumerable surgeries as per reports from [facility] (9) Gastroparesis: Continue Linzess and domperidone (10) Sphincter of Oddi spasm: Noted as a cause of some of her symptoms (11) Jejunostomy tube in situ: Not currently being used for feeding Due to be changed out at [facility] next week (12) Adrenal insufficiency: Due to recurrent admissions, placed on stress dose hydrocortisone 100 mg IV every 8 hours-has been weaned down and now will discontinue -Continue home po HC 15mg po qAM and 10mg po qPM (13) SMAS (superior mesenteric artery syndrome): Status post Strong's procedure surgery at [place] many years ago (14) Hypokalemia: Replace as needed -Follow BMP (15) Endometriosis: Continue progestin daily and has Mirena IUD in place hCG negative As discussed above, this is likely the cause of her chronic abdominal pains and she typically has laparoscopic surgeries to treat endometriosis once a year for the last few years -She will discuss with DRYING FRAME OPERATOR about oophorectomy and coming off progesterone as this could be contributing to her GI dysmotility issues (16) DVT prophylaxis: Lovenox Disposition-remain hospitalized but likely dc tomorrow as is improving Discharge Plan Discharge Items Patient Disposition: Home - Home Health Services Reason For Visit: HYPOPHOSPHATEMIA, PANCREATITIS Discharge Diagnosis: Abdominal pain, nausea, Electrolyte abnormalities, severe malnutrition Condition on Discharge: Fair Activity: Resume your previous activity Non-emergency contact: Primary Care Provider, Pest Control Supervisor and Coal [employer]er Call non-emergency contact if: you have any medication questions, your symptoms worsen, your pain is not controlled, your pain is worsening, your pain is unusual for you, your pain is concerning for you and your temperature is above 101 Follow-up/Referrals: Mariah Addison DO [Primary Care Provider] - Diet: Regular and Other - See Diet Comment Diet Comment: TPN Addtl Attending Provider Instructions: Please continue your usual home medications and keep your follow up appointments with GI and DRYING FRAME OPERATOR this week. Please follow up with your PCP within 1 week. Have your blood work checked in 3- 5 days to check your electrolyte levels. Pending Studies at Discharge: No Stand-Alone Forms: My [facility] Medications and DC Order Prescriptions: Continued famotidine [Pepcid] 20 mg tablet 20 mg PO BID RF: 0 senna leaf Tea 180 ml PO DAILY PRN (Reason: Constipation) RF: 0 cetirizine [Zyrtec] 10 mg Tablet 10 mg PO HS RF: 0 ondansetron HCl [Zofran] 4 mg Tablet 4 mg PO Q6 PRN (Reason: Nausea) RF: 0 hyoscyamine sulfate 0.125 mg Tablet, Sublingual 0.125 mg SUBLINGUAL Q4 PRN (Reason: Abdominal Discomfort) RF: 0 norethindrone acetate 5 mg Tablet 2.5 mg PO QAM RF: 0 albuterol sulfate [ProAir HFA] 90 mcg/actuation Hfa Aerosol Inhaler 2 puff INHALATION QID PRN (Reason: Shortness Of Breath Or Wheezing) RF: 0 dicyclomine 10 mg Capsule 20 mg PO Q6 PRN (Reason: Abdominal Pain) RF: 0 azelastine 0.15 % (205.5 mcg) [place],Non-Aerosol 1 - 2 spray INTRANASAL BID PRN (Reason: Congestion) RF: 0 Linzess 145 mcg Capsule 145 mcg PO BID RF: 0 Mirena 20 mcg/24 hours (5 yrs) 52 mg Intrauterine Device 20 mcg INTRAUTERINE CONTINOUS RF: 0 tretinoin 0.05 % cream 1 applic TOPICAL UD RF: 0 Changed polyethylene glycol 3350 [Miralax] 17 gram Powder In Packet 17 g PO TID Qty: 0 RF: 0 Phospha 250 Neutral 250 mg Tablet 2 tab PO QID Qty: 240 RF: 0 hydrocortisone 10 mg tablet 15 mg PO QAM Qty: 0 RF: 0 Discontinued calcium carbonate [Tums] 200 mg calcium (500 mg) Tablet,Chewable 400 mg PO BID PRN (Reason: Acid Reflux) RF: 0 pantoprazole [Protonix] 40 mg Tablet,Delayed Release (Dr/Ec) 40 mg PO QAM RF: 0 trimethobenzamide 300 mg Capsule 300 mg PO TID PRN (Reason: Nausea) RF: 0 Discharge Orders: Discharge Order (Routine); Ordered 07/16/19 Ordered By: Vicky Drew Admission Data Admit Date/Time: 07/13/19 01:19 Attending Provider: Vicky Drew Admit Provider: Dioni Kumar Primary Care Provider: Mariah Addison Other Providers: Dioni Kumar ; Candido Fernández ; Charan Quiñones Coding Diagnoses Nausea and vomiting R11.2 Pancreatitis K85.90 Enteritis K52.9 Generalized abdominal pain R10.84 Secondary hyperparathyroidism N25.81 Hypocalcemia E83.51 Hypophosphatemia E83.39 Jejunal intussusception K56.1 Gastroparesis K31.84 Sphincter of Oddi spasm K83.4 Jejunostomy tube in situ Z93.4 Adrenal insufficiency E27.40 SMAS (superior mesenteric artery syndrome) K55.1 Hypokalemia E87.6 Endometriosis N80.9 DVT prophylaxis Z29.9
[2019-07-16] MEDS ORDERED: TPN IV SCH (16:00)
[2019-07-16] MEDS ORDERED: CENTRAL PN IV SCH (16:00)
== END 2019-07-16 17:02 | disposition home health service (06) | DRG 439 ==
LOC: ED 21:07 → 3N 07-13 01:19 → SUATTDRO 07-13 01:19 → 3N 07-13 02:21

== ENCOUNTER 2019-09-08 16:06 | Inpatient (IN) ==
[2019-09-08] MEDS ORDERED: ONDANSETRON INJ 2 MG/ML 2 ML VIAL IV STA ×2 (16:27→21:00)
[2019-09-08] MEDS ORDERED: LORazepam 1 MG/2 ML VIAL IV STA (16:27)
[2019-09-08] MEDS ORDERED: HYDROmorphone INJ 0.5 MG/0.5 ML SYR IV STA ×2 (16:27→18:06)
[2019-09-08 17:32] LABS: Basophils # (auto) 0.03 K/uL (0-0.2); Basophils % (auto) 0.2 %; Eosinophils # (auto) 0.04 K/uL (0-0.5); Eosinophils % (auto) 0.2 %; Hematocrit (blood only) 37.7 % (37-47); Hemoglobin 12.9 g/dL (12.0-16.0); Immature Granulocytes # (auto) 0.03 K/uL (0.00-0.02); Immature Granulocytes % (auto) 0.2 %; Lymphocytes # (auto) 0.86 K/uL (1.2-3.4); Lymphocytes % (auto) 5.3 %; Mean Corpuscular Hemoglobin 32.8 pg (25-34); Mean Corpuscular Hgb Conc 34.2 g/dL (32-36); Mean Corpuscular Volume 95.9 fL (80-100); Mean Platelet Volume 10.2 fL (7.4-10.4); Monocytes # (auto) 0.48 K/uL (0.11-0.59); Neutrophils # (auto) 14.75 K/uL (1.4-6.5); Neutrophils % (auto) 91.1 %; Platelet Count 373 K/uL (130-400); RDW Coefficient of Variation 12.1 % (11.5-14.5); RDW Standard Deviation 42.5 fL (36.4-46.3); Red Blood Count 3.93 M/uL (4.2-5.4); White Blood Count 16.19 K/uL (4.8-10.8)
[2019-09-08 17:54] LABS: Alanine Aminotransferase 17 U/L (12-78); Albumin Level 4.1 gm/dl (3.4-5.0); Aspartate Aminotransferase 13 U/L (15-37); BUN Creatinine Ratio 14.9 (10-20); Bilirubin,Total 0.2 mg/dl (0.2-1); Blood Urea Nitrogen 12 mg/dl (7-18); Calcium 9.1 mg/dl (8.5-10.1); Carbon Dioxide 25 mmol/L (21-32); Chloride 110 mmol/L (98-107); Est GFR (African American) 117.1; Glucose 108 mg/dl (70-99); Lipase 318 U/L (73-393); Potassium 3.9 mmol/L (3.5-5.1); Sodium 139 mmol/L (136-145)
[2019-09-08 17:56] LABS: Albumin Globulin Ratio 1.3 (0.9-2); Alkaline Phosphatase 47 U/L (45-117); Globulin 3.1 gm/dl (2.5-4.0); Total Protein 7.2 gm/dl (6.4-8.2)
--- NOTE | 2019-09-08 17:57 | XRay Report ---
XR abdomen 2V w PA chest HISTORY: 29 years-old Female abd pain, h/o intusseception acute generalized abdominal pain COMPARISON: Chest radiographs 06/27/2019 TECHNIQUE: PA view the chest with erect and supine views of the abdomen FINDINGS: Cardiac silhouette is normal. Hazy ill-defined bibasilar densities. No pneumothorax, pleural effusion or overt pulmonary edema. Convex left curvature of the mid to lower thoracic spine. Left subclavian Tmpnvt-b-Ahuc catheter is unchanged. Cholecystectomy. There is an apparent gastrojejunostomy tube of the upper abdomen redemonstrated, dis niru tip projecting over the left midabdomen. There is no pneumatosis or pneumoperitoneum. IUD. Surgic al clips of the abdominal left upper quadrant and right hemipelvis. Additionally, there are suggested phleboliths of the pelvis. No acute fracture or urolith. IMPRESSION: 1. Apparent ill-defined bibasilar densities are suggestive of probable summation density. 2. Nonobstructive bowel gas pattern without pneumoperitoneum. 3. Gastrojejunostomy tube redemonstrated. ACT 112: Negative or not required by law. The above report was generated using voice recognition software. It may contain grammatical, syntax o r spelling errors. Electronically signed by: Danny Sow M.D. 09/08/2019 5:55 PM
[2019-09-08] MEDS ORDERED: SODIUM CHLORIDE 0.9% 1000ML 2,000 ML IV ONE (18:55)
[2019-09-08 19:00] LABS: Appearance Urine Clear (Clear); Bilirubin Urine Negative (Negative); Blood Urine Negative (Negative); Color Urine Yellow; Glucose Urine UA Negative (Negative); Ketones Urine 1+ (Negative); Leukocyte Esterase Urine Negative (Negative); Nitrite Urine Negative (Negative); Protein Urine Negative (Negative); Urobilinogen Urine Negative (Negative)
[2019-09-08] MEDS ORDERED: HYDROmorphone INJ 1 MG/ML SYRINGE IV STA (21:00)
[2019-09-08] MEDS ORDERED: IOVERSOL 100ml IV PRN (21:14)
--- NOTE | 2019-09-08 21:54 | CT Scan Report ---
ABDOMEN AND PELVIS CT WITH IV CONTRAST CT DOSE: 248.25 mGy.cm HISTORY: Acute epigastric abdominal pain EPIGASTRIC PAIN TECHNIQUE: Multiaxial CT images of the abdomen and pelvis were performed following the IV administrat ion of 94 cc of Optiray 320, A dose lowering technique was utilized adhering to the principles of AL JING. COMPARISON STUDY: CT abdomen and pelvis 07/12/2019 FINDINGS: Clear lung bases. No pneumatosis or pneumoperitoneum. Imaged inferior cardiac chambers are unremarkab le. The spleen, pancreas and adrenal glands are unremarkable. Cholecystectomy. Mild dilation of the c ommon bile duct is likely a postsurgical basis. The liver is unremarkable. Patency of the hepatic and portal veins. Left kidney is unremarkable. Punctate nonobstructing calculus of the inferior pole rig ht kidney. No ureteral calculi or obstructive uropathy. Unremarkable urinary bladder. IUD of the mid pelvis appears appropriately positioned. Air is noted within the endocervical canal. Follicular reese es of the ovaries. Aorta and IVC are unremarkable. No adenopathy. Gastrojejunostomy tube appears appropriately positioned. There are two metallic density foci which ap pear to be within loops of jejunum within the abdominal left upper quadrant which are new from the exam. There is mild wall thickening of the distal stomach with multiple air and fluid-filled loops of large and small bowel throughout the abdomen and pelvis. No significant bowel distention or obstruction. No ascites or mesenteric inflammation. Prior appendectomy. Soft tissues are unremarkable . Bones appear intact without acute fracture. IMPRESSION: 1. Appropriately positioned gastrojejunostomy tube. 2. No bowel obstruction or pneumoperitoneum. 3. Multiple air and fluid-filled loops of large and small bowel are suggestive of enteritis with diar rheal illness. Additionally, there is wall thickening of the distal stomach suggestive of concomitant gastritis. 4. Prior appendectomy and cholecystectomy. ACT 112: Negative or not required by law. The above report was generated using voice recognition software. It may contain grammatical, syntax o r spelling errors. Electronically signed by: Danny Sow M.D. 09/08/2019 9:53 PM
--- NOTE | 2019-09-08 23:13 | History & Physical Report ---
Date of Service September 08, 2019 Assessment & Plan (1) Generalized abdominal pain: With nausea and vomiting. Etiology uncertain at this time. CT suggestive of enteritis, gastritis. Patient denies diarrhea at this time. Lipase is WNL. NO evidence of intussuscption. Patient presented similarly in June and her symptoms were resolved with bowel regimen and BM. -Admit to medical floor -Pain control with Dilaudid PRN, Reglan PRN -Zofran PRN -GI Consultation appreciated -Continue home medication regimen to include BGentyl, Hyoscamine, Linzess, -Miralax TID, Senna tea Present on Admission?: Yes (2) Enteritis: Etiology unclear at this time. Patient denies diarrhea -Continue to monitor -Repeat labs in AM Present on Admission?: Yes (3) Gastroparesis: Chronic -Reglan PRN -Continue Linzess and Domperidone Present on Admission?: Yes (4) Sphincter of Oddi spasm: Noted Present on Admission?: Yes (5) Jejunostomy tube in situ: Recently replaced at [facility]. Site clean, tube location confirmed by imaging -Free H20 100mL BID and PRN flush Present on Admission?: Yes (6) On total parenteral nutrition (TPN): Order placed to start TPN tomorrow Present on Admission?: Yes (7) Adrenal insufficiency: Chronic. Stable. No evidence of crisis at present -Continue Hydrocortisone 15mg po q AM and 10mg po q afternoon -Increase to stress dose if needed Present on Admission?: Yes (8) Generalized intestinal dysmotility: Noted. Patient follows at [facility] F/E/N - LR at 80mL/hr, monitor electrolytes and replete as needed, NPO, patient receives TPN currently Ppx - Low risk for DVT Code - Full Dispo - Observation to medical floor Admission and Anticipated Discharge Date Admission Date: 09/08/19 Anticipated date of discharge: 09/11/19 History of Present Illness Chief Complaint: abdominal pain Primary Care Provider: DO Pilar Borrego is a medically complex 29yo C female with multiple medical problems to include anemia, gastroparesis, sphincter of Oddi spasm, AI, hypophosphatemia, intestinal dysmotility, asthma, Crohns disease. She has a left anterior chest port and is currently on TPN. She follows with GI her (Dr. Fernández) as well as [facility]. Most recently admitted to [facility] in June fo r pancreatitis. Patient presents today with abdominal pain, bandlike in the lower part of her abdomen with radiation to her back. Pain has been dull and ongoing for the last 2-3 days, acutely worsened this afternoon. Also with nausea and 5 episodes of bilious vomiting. She reports an elevated temperature of 99.9 earlier today as well as some chills. No additional complaints. No true fever, chest pain, cough, SOB. No diarrhea, melena, hematochezia, dysuria. Patient states that this pain is similar to her prior intussusception. Patient denies fevers/cough/CP/SOB. No sick contacts. No Covid-19+ contacts. She traveled to [facility] last week to have her jejunostomy tube replaced, otherwise no travel. No prior Covid testing. ER Course: Dilaudid 0.5mg x 2, 1mg x 1, Ativan, Zofran Allergies Allergy/AdvReac Type Severity Reaction Status Date / Time amoxicillin Allergy Intermediate RASH Verified 09/08/19 17:15 Bactrim Allergy Intermediate RASH Verified 08/13/17 12:16 cefazolin Allergy Intermediate rash Verified 09/08/19 17:15 Cephalosporins Allergy Intermediate HIVES Verified 09/08/19 17:15 clavulanic acid Allergy Intermediate HIVES Verified 09/08/19 17:15 Penicillins Allergy Intermediate HIVES Verified 09/08/19 17:15 prochlorperazine Allergy Intermediate HIVES Verified 09/08/19 17:15 promethazine Allergy Intermediate hives, Verified 09/08/19 17:15 throat swelling sulfamethoxazole Allergy Intermediate RASH Verified 09/08/19 17:15 sumatriptan Allergy Intermediate RASH Verified 09/08/19 17:15 trimethoprim Allergy Intermediate RASH Verified 09/08/19 17:15 diphenhydramine AdvReac Intermediate Tachycardia, Verified 09/08/19 17:15 Severe Anxiety WITH IV ONLY erythromycin base AdvReac Intermediate GI SYMPTOMS Verified 09/08/19 17:15 citalopram [From Celexa] AdvReac Unknown Verified 09/08/19 17:15 MULTIVITAMIN Allergy Intermediate Unknown Uncoded 09/08/19 17:15 Home Medications Home Medications Medication Instructions Recorded Confirmed Type Linzess 145 mcg PO BID 03/07/18 09/08/19 History albuterol sulfate [ProAir HFA] 2 puff INHALATION QID PRN 03/07/18 09/08/19 History azelastine 1 - 2 spray INTRANASAL BID PRN 03/07/18 09/08/19 History cetirizine [Zyrtec] 10 mg PO HS 03/07/18 09/08/19 History dicyclomine 10 - 20 mg PO Q6H PRN 03/07/18 09/08/19 History hyoscyamine sulfate [Levsin/SL] 0.125 mg SUBLINGUAL Q4H PRN 03/07/18 09/08/19 History norethindrone acetate [Aygestin] 2.5 mg PO QAM 03/07/18 09/08/19 History ondansetron HCl [Zofran] 4 mg PO Q6H PRN 03/07/18 09/08/19 History senna leaf 180 ml PO DAILY PRN 11/19/18 09/08/19 History famotidine 20 mg tablet 20 mg PO BID tab 05/26/19 09/08/19 History Mirena 20 mcg INTRAUTERINE CONTINOUS 07/12/19 09/08/19 History tretinoin [Retin-A] 1 applic TOPICAL UD 07/12/19 09/08/19 History polyethylene glycol 3350 [Miralax] 17 g PO TID #0 ea 07/16/19 09/08/19 Rx galcanezumab-gnlm [Emgality 120 mg SQ MONTHLY 08/22/19 09/08/19 History Syringe] hydrocortisone [Cortef] 15 mg PO QAM 09/08/19 09/08/19 History pantoprazole [Protonix] 40 mg PO DAILY 09/08/19 09/08/19 History pyridostigmine bromide [Mestinon] 30 mg PO TID 09/08/19 09/08/19 History Past Med/Surg History Medical History Appendicitis, acute (Acute 11/07/13) Asthma (Chronic) Chronic migraine (Chronic) Endometriosis Hemorrhagic cystitis (Acute) Hypotension 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 of Oddi dysfunction Uses feeding tube UTI (urinary tract infection) (Acute) Surgical History H/O adenoidectomy (Resolved) H/O laparoscopy (Resolved) H/O lumpectomy (Resolved) History of appendectomy History of vascular access device Hx of tonsillectomy (Resolved) S/P cholecystectomy S/P wrist surgery (Resolved) Family History Other No significant family history Social History Preferred Language: Nigerian Communication Ability: Effective Visual Impairment: No Limitations Hearing Ability: Normal 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 Beliefs That Will Affect Care: None marital status: single Current Living Situation: Parent current occupational status: unemployed Other Information That Helps Us Care for You: No Feels Safe at Home: Yes Safety Concerns: Feels Safe At This Time Smoking Status: Never smoker Second Hand Exposure: No ; Hx Alcohol Use: No Hx Substance Use: No Review of Systems Review of Systems: All systems reviewed & are unremarkable except as noted in HPI & below Physical Exam Physical Exam: General: think appearing female patient resting comfortably, NAD, non-toxic in appearance, AA&O x 4 Skin: warm, dry, intact, no rashes or lesions HEENT: NC/AT, PERRL, EOMI, anicteric sclera, conjunctiva without injection, external ear normal to inspection and nontender, nares patent, moist mucus membranes, dentition intact, no oropharyngeal lesions, neck supple, trachea midline, no LAD, no thyromegaly, no JVD Heart: +S1/S2, regular, tachycardic, no m/r/g, port left chest wall Lungs: equal air entry bilaterally, no rales/rhonchi/wheezes Abd: +BS, soft, mildly tender in the lower abdomen, no rebound/guarding/peritoneal signs, no masses/organomegaly/ascites, J-tube in place, no bleeding/drainage/erythema Ext: warm, 2+ pulses in UE/LE bilaterally, no clubbing/cyanosis or edema Neuro: nonfocal, patient AA&O x 4, speech intact, no facial droop, moving all extremities on command with equal strength 5/5 Results & Data Results & Data ([facility]) Vital Signs (Past 12 Hours) Vital Signs Temp Pulse Pulse Resp BP BP Pulse Ox 09/08/19 21:34 112 H 16 110/69 97 09/08/19 19:48 113 H 16 104/72 97 09/08/19 18:40 130 H 17 97 09/08/19 18:35 132 H 18 98 09/08/19 18:33 133 H 18 104/72 99 09/08/19 18:31 135 H 22 100 09/08/19 18:30 141 H 26 H 104/72 98 09/08/19 18:25 137 H 32 H 09/08/19 18:20 129 H 20 09/08/19 18:15 130 H 23 09/08/19 18:10 130 H 14 09/08/19 18:05 125 H 14 09/08/19 18:04 125 H 21 09/08/19 17:25 125 H 21 09/08/19 17:20 122 H 18 09/08/19 17:16 110 H 14 09/08/19 16:59 97 09/08/19 16:17 37.3 C 134 H 20 100/72 97 Laboratory Results Lab Results 09/08/19 09/08/19 09/08/19 Range/Units 16:50 16:50 18:49 WBC 16.19 H (4.8-10.8) K/uL RBC 3.93 L (4.2-5.4) M/uL Hgb 12.9 (12.0-16.0) g/dL Hct 37.7 (37-47) % MCV 95.9 (80-100) fL MCH 32.8 (25-34) pg MCHC 34.2 (32-36) g/dL RDW Std Deviation 42.5 (36.4-46.3) fL RDW Coeff of Tim 12.1 (11.5-14.5) % Plt Count 373 (130-400) K/uL MPV 10.2 (7.4-10.4) fL Immature Gran % (Auto) 0.2 % Neut % (Auto) 91.1 % Lymph % (Auto) 5.3 % [place] % (Auto) 3.0 % Eos % (Auto) 0.2 % Baso % (Auto) 0.2 % Immature Gran # (Auto) 0.03 H (0.00-0.02) K/uL Neut # (Auto) 14.75 H (1.4-6.5) K/uL Lymph # (Auto) 0.86 L (1.2-3.4) K/uL [place] # (Auto) 0.48 (0.11-0.59) K/uL Eos # (Auto) 0.04 (0-0.5) K/uL Baso # (Auto) 0.03 (0-0.2) K/uL Sodium 139 (136-145) mmol/L Potassium 3.9 (3.5-5.1) mmol/L Chloride 110 H (98-107) mmol/L Carbon Dioxide 25 (21-32) mmol/L Anion Gap 5.0 (3-11) BUN 12 (7-18) mg/dl Creatinine 0.80 (0.6-1.2) mg/dl Est Cr Clr Drug Dosing Not Reportable Est GFR ( Amer) 117.1 Est GFR (Non-Af Amer) 101.0 BUN/Creatinine Ratio 14.9 (10-20) Glucose 108 H (70-99) mg/dl Calcium 9.1 (8.5-10.1) mg/dl Total Bilirubin 0.2 (0.2-1) mg/dl AST 13 L (15-37) U/L ALT 17 (12-78) U/L Alkaline Phosphatase 47 (45-117) U/L Total Protein 7.2 (6.4-8.2) gm/dl Albumin 4.1 (3.4-5.0) gm/dl Globulin 3.1 (2.5-4.0) gm/dl Albumin/Globulin Ratio 1.3 (0.9-2) Lipase 318 (73-393) U/L Urine Color Yellow Urine Appearance Clear (Clear) Urine pH 6.0 (4.5-7.5) Ur Specific [place] 1.010 (1.000-1.030) Urine Protein Negative (Negative) Urine Glucose (UA) Negative (Negative) Urine Ketones 1+ H (Negative) Urine Blood Negative (Negative) Urine Nitrite Negative (Negative) Urine Bilirubin Negative (Negative) Urine Urobilinogen Negative (Negative) Ur Leukocyte Esterase Negative (Negative) Diagnostic Findings XR abdomen 2V w PA chest HISTORY: 29 years-old Female abd pain, h/o intusseception acute generalized abdominal pain COMPARISON: Chest radiographs 06/27/2019 TECHNIQUE: PA view the chest with erect and supine views of the abdomen FINDINGS: Cardiac silhouette is normal. Hazy ill-defined bibasilar densities. No pneumothorax, pleural effusion or overt pulmonary edema. Convex left curvature of the mid to lower thoracic spine. Left subclavian Rrlhvi-i-Ppni catheter is unchanged. Cholecystectomy. There is an apparent gastrojejunostomy tube of the upper abdomen redemonstrated, distal tip projecting over the left midabdomen. There is no pneumatosis or pneumoperitoneum. IUD. Surgical clips of the abdominal left upper quadrant and right hemipelvis. Additionally, there are suggested phleboliths of the pelvis. No acute fracture or urolith. IMPRESSION: 1. Apparent ill-defined bibasilar densities are suggestive of probable summation density. 2. Nonobstructive bowel gas pattern without pneumoperitoneum. 3. Gastrojejunostomy tube redemonstrated. ACT 112: Negative or not required by law. The above report was generated using voice recognition software. It may contain grammatical, syntax or spelling errors. Electronically signed by: Danny Sow M.D. 09/08/2019 5:55 PM Dictated: 09/08/191750 Transcribed: 09/08/191750 ABDOMEN AND PELVIS CT WITH IV CONTRAST CT DOSE: 248.25 mGy.cm HISTORY: Acute epigastric abdominal pain EPIGASTRIC PAIN TECHNIQUE: Multiaxial CT images of the abdomen and pelvis were performed following the IV administration of 94 cc of Optiray 320, A dose lowering technique was utilized adhering to the principles of ALARA. COMPARISON STUDY: CT abdomen and pelvis 07/12/2019 FINDINGS: Clear lung bases. No pneumatosis or pneumoperitoneum. Imaged inferior cardiac chambers are unremarkable. The spleen, pancreas and adrenal glands are unremarkable. Cholecystectomy. Mild dilation of the common bile duct is likely a postsurgical basis. The liver is unremarkable. Patency of the hepatic and portal veins. Left kidney is unremarkable. Punctate nonobstructing calculus of the inferior pole right kidney. No ureteral calculi or obstructive uropathy. Unremarkable urinary bladder. IUD of the mid pelvis appears appropriately positioned. Air is noted within the endocervical canal. Follicular changes of the ovaries. Aorta and IVC are unremarkable. No adenopathy. Gastrojejunostomy tube appears appropriately positioned. There are two metallic density foci which appear to be within loops of jejunum within the abdominal left upper quadrant which are new from the 07/12/2019 exam. There is mild wall thickening of the distal stomach with multiple air and fluid-filled loops of large and small bowel throughout the abdomen and pelvis. No significant bowel distention or obstruction. No ascites or mesenteric inflammation. Prior appendectomy. Soft tissues are unremarkable. Bones appear intact without acute fracture. IMPRESSION: 1. Appropriately positioned gastrojejunostomy tube. 2. No bowel obstruction or pneumoperitoneum. 3. Multiple air and fluid-filled loops of large and small bowel are suggestive of enteritis with diarrheal illness. Additionally, there is wall thickening of the distal stomach suggestive of concomitant gastritis. 4. Prior appendectomy and cholecystectomy. ACT 112: Negative or not required by law. The above report was generated using voice recognition software. It may contain grammatical, syntax or spelling errors. Electronically signed by: Danny Sow M.D. 09/08/2019 9:53 PM Dictated: 09/08/[id number] Transcribed: 09/08/192143 Code Status & VTE Plan Code Status FULL PG Care Time/CCT Total # of Minutes Spent Total Time Spent with Patient: Total time spent is greater than 50% in coordination of care (as documented) at patient's floor/unit and/or counseling patient: Coding Level of Care Code 72898 OBS Care - Level 3 Diagnoses Generalized abdominal pain R10.84 Enteritis K52.9 Gastroparesis K31.84 Sphincter of Oddi spasm K83.4 Jejunostomy tube in situ Z93.4 On total parenteral nutrition (TPN) Z78.9 Adrenal insufficiency E27.40 Generalized intestinal dysmotility K59.8
[2019-09-08] MEDS ORDERED: DEXTROSE 10% 1,000 ML IV PRN (23:38)
[2019-09-08] MEDS ORDERED: ALBUTEROL HFA 8 GM INHALER INH PRN (23:38)
[2019-09-08] MEDS ORDERED: NON-FORMULARY MEDICATION (Levonorgestrel [Mirena] 20 MCG) IU SCH (23:38)
[2019-09-08] MEDS ORDERED: ACETAMINOPHEN 325 MG TAB PO PRN (23:38)
[2019-09-08] MEDS ORDERED: HYOSCYAMINE SULFATE 0.125 MG TAB SL PRN (23:38)
[2019-09-08] MEDS ORDERED: SENNA 8.8 MG/5 ML UDP PO PRN (23:38)
[2019-09-08] MEDS ORDERED: SODIUM CHLORIDE 0.65% NA SOLN 45 ML (OCEAN) PRN (23:38)
[2019-09-08] MEDS ORDERED: DICYCLOMINE HCL 10 MG CAP PO PRN (23:38)
[2019-09-08] MEDS ORDERED: METOCLOPRAMIDE HCL INJ 5 MG/ML 2 ML VIAL IV PRN (23:38)
--- NOTE | 2019-09-08 23:47 | Emergency Department Note ---
History of Present Illness General Chief complaint: Abdominal Pain Stated complaint: SEVERE ABD PAIN, NAUSEA Source: patient and RN notes reviewed Limitations: no limitations History of Present Illness Provider complaint: Abdominal pain, nausea Onset (ago): hour(s) 4 Location: abdomen Radiation: back Severity: moderate Pain Consistency: + colicky Maximum Pain Intensity: 3 Associated symptoms: + nausea/vomiting Treatments prior to arrival: other (Zofran) This patient is a 29-year-old female with a complicated past medical history of SMA syndrome, intussusception, pancreatitis, J-tube who is currently on TPN due to gastric dysmotility, presents to the emergency department with complaints of abdominal pain in the epigastric region radiating to the left upper quadrant. Patient has been nauseated and vomiting. She did try Zofran prior to arrival. She states the pain exacerbated around 4 PM today. Patient is followed at [facility] by gastroenterology. She states her last visit was in June when she was transferred for intussusception. Patient states this feels different than that previous visit. Home Medications Home Medications Medication Instructions Recorded Confirmed Type Linzess 145 mcg PO BID 03/07/18 09/08/19 History albuterol sulfate [ProAir HFA] 2 puff INHALATION QID PRN 03/07/18 09/08/19 H istory azelastine 1 - 2 spray INTRANASAL BID PRN 03/07/18 09/08/19 History cetirizine [Zyrtec] 10 mg PO HS 03/07/18 09/08/19 History dicyclomine 10 - 20 mg PO Q6H PRN 03/07/18 09/08/19 History hyoscyamine sulfate [Levsin/SL] 0.125 mg SUBLINGUAL Q4H PRN 03/07/18 09/08/19 History norethindrone acetate [Aygestin] 2.5 mg PO QAM 03/07/18 09/08/19 History ondansetron HCl [Zofran] 4 mg PO Q6H PRN 03/07/18 09/08/19 History senna leaf 180 ml PO DAILY PRN 11/19/18 09/08/19 History famotidine 20 mg tablet 20 mg PO BID tab 05/26/19 09/08/19 History Mirena 20 mcg INTRAUTERINE CONTINOUS 07/12/19 09/08/19 History tretinoin [Retin-A] 1 applic TOPICAL UD 07/12/19 09/08/19 History polyethylene glycol 3350 [Miralax] 17 g PO TID #0 ea 07/16/19 09/08/19 Rx galcanezumab-gnlm [Emgality 120 mg SQ MONTHLY 08/22/19 09/08/19 History Syringe] hydrocortisone [Cortef] 15 mg PO QAM 09/08/19 09/08/19 History pantoprazole [Protonix] 40 mg PO DAILY 09/08/19 09/08/19 History pyridostigmine bromide [Mestinon] 30 mg PO TID 09/08/19 09/08/19 History Allergies Allergy/AdvReac Type Severity Reaction Status Date / Time amoxicillin Allergy Intermediate RASH Verified 09/08/19 17:15 Bactrim Allergy Intermediate RASH Verified 08/13/17 12:16 cefazolin Allergy Intermediate rash Verified 09/08/19 17:15 Cephalosporins Allergy Intermediate HIVES Verified 09/08/19 17:15 clavulanic acid Allergy Intermediate HIVES Verified 09/08/19 17:15 Penicillins Allergy Intermediate HIVES Verified 09/08/19 17:15 prochlorperazine Allergy Intermediate HIVES Verified 09/08/19 17:15 promethazine Allergy Intermediate hives, Verified 09/08/19 17:15 throat swelling sulfamethoxazole Allergy Intermediate RASH Verified 09/08/19 17:15 sumatriptan Allergy Intermediate RASH Verified 09/08/19 17:15 trimethoprim Allergy Intermediate RASH Verified 09/08/19 17:15 diphenhydramine AdvReac Intermediate Tachycardia, Verified 09/08/19 17:15 Severe Anxiety WITH IV ONLY erythromycin base AdvReac Intermediate GI SYMPTOMS Verified 09/08/19 17:15 citalopram [From Celexa] AdvReac Unknown Verified 09/08/19 17:15 MULTIVITAMIN Allergy Intermediate Unknown Uncoded 09/08/19 17:15 Past Med/Surg History Medical History Appendicitis, acute (Acute 11/07/13) Asthma (Chronic) Chronic migraine (Chronic) Endometriosis Hemorrhagic cystitis (Acute) Hypotension 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 of Oddi dysfunction Uses feeding tube UTI (urinary tract infection) (Acute) Surgical History H/O adenoidectomy (Resolved) H/O laparoscopy (Resolved) H/O lumpectomy (Resolved) History of appendectomy History of vascular access device Hx of tonsillectomy (Resolved) S/P cholecystectomy S/P wrist surgery (Resolved) Family History Other No significant family history Social History Preferred Language: Singaporean Communication Ability: Effective Visual Impairment: No Limitations Hearing Ability: Normal Automobile Body Worker Required: No Beliefs That Will Affect Care: None marital status: single Current Living Situation: Parent current occupational status: unemployed Other Information That Helps Us Care for You: No Feels Safe at Home: Yes Safety Concerns: Feels Safe At This Time Smoking Status: Never smoker Second Hand Exposure: No ; Hx Alcohol Use: No Hx Substance Use: No Review of Systems See HPI for pertinent positives & negatives. and A total of 10 systems reviewed and were otherwise negative Physical Exam Vital Signs Vital Signs - 24 hr 09/08/19 16:17 09/08/19 16:59 09/08/19 17:16 Temperature 37.3 C Temperature Source Oral Pulse Rate 134 H 110 H Pulse Rate [Finger] Pulse Rate from SpO2 Sensor Pulse Rhythm [Finger] Pulse Strength [Finger] Respiratory Rate 20 14 Respiratory Effort / Characteristics Respiratory Depth Blood Pressure 100/72 Blood Pressure [Right Arm] Blood Pressure Mean 81 Blood Pressure Mean [Right Arm] Blood Pressure Position [Right Arm] Pulse Oximetry 97 97 Oxygen Delivery Method Room Air Room Air Sepsis Recent Fever Within 48 Hours No Sepsis New/Unexplained Change in Mental Status No Sepsis Action Taken by Nursing No Action Required 09/08/19 17:20 09/08/19 17:25 09/08/19 18:04 Temperature Temperature Source Pulse Rate 122 H 125 H 125 H Pulse Rate [Finger] Pulse Rate from SpO2 Sensor Pulse Rhythm [Finger] Pulse Strength [Finger] Respiratory Rate 18 21 21 Respiratory Effort / Characteristics Respiratory Depth Blood Pressure Blood Pressure [Right Arm] Blood Pressure Mean Blood Pressure Mean [Right Arm] Blood Pressure Position [Right Arm] Pulse Oximetry Oxygen Delivery Method Sepsis Recent Fever Within 48 Hours Sepsis New/Unexplained Change in Mental Status Sepsis Action Taken by Nursing 09/08/19 18:05 09/08/19 18:10 09/08/19 18:15 Temperature Temperature Source Pulse Rate 125 H 130 H 130 H Pulse Rate [Finger] Pulse Rate from SpO2 Sensor Pulse Rhythm [Finger] Pulse Strength [Finger] Respiratory Rate 14 14 23 Respiratory Effort / Characteristics Respiratory Depth Blood Pressure Blood Pressure [Right Arm] Blood Pressure Mean Blood Pressure Mean [Right Arm] Blood Pressure Position [Right Arm] Pulse Oximetry Oxygen Delivery Method Sepsis Recent Fever Within 48 Hours Sepsis New/Unexplained Change in Mental Status Sepsis Action Taken by Nursing 09/08/19 18:20 09/08/19 18:25 09/08/19 18:30 Temperature Temperature Source Pulse Rate 129 H 137 H 141 H Pulse Rate [Finger] Pulse Rate from SpO2 Sensor 140 H Pulse Rhythm [Finger] Pulse Strength [Finger] Respiratory Rate 20 32 H 26 H Respiratory Effort / Characteristics Respiratory Depth Blood Pressure 104/72 Blood Pressure [Right Arm] Blood Pressure Mean 87 Blood Pressure Mean [Right Arm] Blood Pressure Position [Right Arm] Pulse Oximetry 98 Oxygen Delivery Method Sepsis Recent Fever Within 48 Hours Sepsis New/Unexplained Change in Mental Status Sepsis Action Taken by Nursing 09/08/19 18:31 09/08/19 18:33 09/08/19 18:35 Temperature Temperature Source Pulse Rate 135 H 132 H Pulse Rate [Finger] 133 H Pulse Rate from SpO2 Sensor 135 H 131 H Pulse Rhythm [Finger] Pulse Strength [Finger] Respiratory Rate 22 18 18 Respiratory Effort / Characteristics Respiratory Depth Blood Pressure Blood Pressure [Right Arm] 104/72 Blood Pressure Mean Blood Pressure Mean [Right Arm] 82 Blood Pressure Position [Right Arm] Pulse Oximetry 100 99 98 Oxygen Delivery Method Room Air Sepsis Recent Fever Within 48 Hours Sepsis New/Unexplained Change in Mental Status Sepsis Action Taken by Nursing 09/08/19 18:40 09/08/19 19:48 09/08/19 21:34 Temperature Temperature Source Pulse Rate 130 H Pulse Rate [Finger] 113 H 112 H Pulse Rate from SpO2 Sensor 130 H Pulse Rhythm [Finger] Regular Regular Pulse Strength [Finger] Normal Normal Respiratory Rate 17 16 16 Respiratory Effort / Characteristics Non-Labored Spontaneous Non-Labored Spontaneous Respiratory Depth Normal Normal Blood Pressure Blood Pressure [Right Arm] 104/72 110/69 Blood Pressure Mean Blood Pressure Mean [Right Arm] 82 82 Blood Pressure Position [Right Arm] Lying Pulse Oximetry 97 97 97 Oxygen Delivery Method Room Air Room Air Sepsis Recent Fever Within 48 Hours Sepsis New/Unexplained Change in Mental Status Sepsis Action Taken by Nursing Vital signs reviewed. General: Thin and chronically ill-appearing 29-year-old female, in some discom fort. Sitting up at the bedside with an emesis bag. HEENT: No conjunctival injection, PERRLA, neck supple. Moist mucous membranes. Cardiovascular: Regular rate and rhythm, no extra sounds. Pulmonary: Clear to auscultation bilaterally, normal work of breathing. Abdomen: Soft, nontender, nondistended, positive bowel sounds. Musculoskeletal: Atraumatic, no significant peripheral edema Neurologic: Patient awake alert and oriented x3. Skin: Warm, dry, no rash Course Administered Medications Ioversol (Optiray 320 100ml) 94 ml IV ONCE PRN PRN Reason: Interaction Checking Stop: 09/12/19 21:13 Last Admin: 09/08/19 21:15 Dose: 94 ml Documented by: [id number] Discontinued Medications Hydromorphone HCl (Dilaudid) 0.5 mg IV NOW STA Stop: 09/08/19 16:28 Last Admin: 09/08/19 16:51 Dose: 0.5 mg Documented by: [id number] Hydromorphone HCl (Dilaudid) 0.5 mg IV NOW STA Stop: 09/08/19 18:07 Last Admin: 09/08/19 18:26 Dose: 0.5 mg Documented by: [id number] Hydromorphone HCl (Dilaudid) 1 mg IV NOW STA Stop: 09/08/19 21:01 Last Admin: 09/08/19 21:09 Dose: 1 mg Documented by: [id number] Lorazepam (Ativan) 1 mg in 2 mls @ 2 mls/min IV NOW STA Stop: 09/08/19 16:28 Last Admin: 09/08/19 16:51 Dose: 2 mls/min Documented by: [id number] Sodium Chloride (Nss 1000ml) 2,000 mls @ 999 mls/hr IV .Q2H1M ONE Stop: 09/08/19 20:55 Last Infusion: 09/08/19 21:12 Dose: 0 mls/hr Documented by: [id number] Admin: 09/08/19 19:10 Dose: 999 mls/hr Documented by: [id number] Ondansetron HCl (Zofran) 4 mg IV NOW STA Stop: 09/08/19 16:28 Last Admin: 09/08/19 16:51 Dose: 4 mg Documented by: [id number] Ondansetron HCl (Zofran) 4 mg IV NOW STA Stop: 09/08/19 21:01 Last Admin: 09/08/19 21:09 Dose: 4 mg Documented by: [id number] Medical Decision Making Differential Diagnosis Differential diagnosis: Etiologies such as biliary colic, cholecystitis, hepatitis, perihepatitis, p ancreatitis, cardiac disease, pancreatitis, gastritis, peptic ulcer disease, appendicitis, ovarian cyst, ovarian torsion, ectopic , pelvic inflammatory disease, cystitis, diverticulitis, mesenteric ischemia, inflammatory bowel disease, ileus, bowel obstruction, aortic pathology, shingles, as well as others were considered. Medical Records Attestation: I reviewed the patient's medical records. Home Medications Current Medication List: was personally reviewed by me Laboratory Data Attestation: I reviewed the patient's lab results. Result diagrams: 09/08/19 16:50 09/08/19 16:50 Lab Results 09/08/19 09/08/19 09/08/19 Range/Units 16:50 16:50 18:49 WBC 16.19 H (4.8-10.8) K/uL RBC 3.93 L (4.2-5.4) M/uL Hgb 12.9 (12.0-16.0) g/dL Hct 37.7 (37-47) % MCV 95.9 (80-100) fL MCH 32.8 (25-34) pg MCHC 34.2 (32-36) g/dL RDW Std Deviation 42.5 (36.4-46.3) fL RDW Coeff of Tim 12.1 (11.5-14.5) % Plt Count 373 (130-400) K/uL MPV 10.2 (7.4-10.4) fL Immature Gran % (Auto) 0.2 % Neut % (Auto) 91.1 % Lymph % (Auto) 5.3 % Davidson % (Auto) 3.0 % Eos % (Auto) 0.2 % Baso % (Auto) 0.2 % Immature Gran # (Auto) 0.03 H (0.00-0.02) K/uL Neut # (Auto) 14.75 H (1.4-6.5) K/uL Lymph # (Auto) 0.86 L (1.2-3.4) K/uL Davidson # (Auto) 0.48 (0.11-0.59) K/uL Eos # (Auto) 0.04 (0-0.5) K/uL Baso # (Auto) 0.03 (0-0.2) K/uL Sodium 139 (136-145) mmol/L Potassium 3.9 (3.5-5.1) mmol/L Chloride 110 H (98-107) mmol/L Carbon Dioxide 25 (21-32) mmol/L Anion Gap 5.0 (3-11) BUN 12 (7-18) mg/dl Creatinine 0.80 (0.6-1.2) mg/dl Est Cr Clr Drug Dosing Not Reportable Est GFR ( Amer) 117.1 Est GFR (Non-Af Amer) 101.0 BUN/Creatinine Ratio 14.9 (10-20) Glucose 108 H (70-99) mg/dl Calcium 9.1 (8.5-10.1) mg/dl Total Bilirubin 0.2 (0.2-1) mg/dl AST 13 L (15-37) U/L ALT 17 (12-78) U/L Alkaline Phosphatase 47 (45-117) U/L Total Protein 7.2 (6.4-8.2) gm/dl Albumin 4.1 (3.4-5.0) gm/dl Globulin 3.1 (2.5-4.0) gm/dl Albumin/Globulin Ratio 1.3 (0.9-2) Lipase 318 (73-393) U/L Urine Color Yellow Urine Appearance Clear (Clear) Urine pH 6.0 (4.5-7.5) Ur Specific Sundance 1.010 (1.000-1.030) Urine Protein Negative (Negative) Urine Glucose (UA) Negative (Negative) Urine Ketones 1+ H (Negative) Urine Blood Negative (Negative) Urine Nitrite Negative (Negative) Urine Bilirubin Negative (Negative) Urine Urobilinogen Negative (Negative) Ur Leukocyte Esterase Negative (Negative) Imaging Data Attestation: I personally reviewed and interpreted this imaging study as follows: Radiologist's Impression: XR abdomen 2V w PA chest HISTORY: 29 years-old Female abd pain, h/o intusseception acute generalized abdominal pain COMPARISON: Chest radiographs 06/27/2019 TECHNIQUE: PA view the chest with erect and supine views of the abdomen FINDINGS: Cardiac silhouette is normal. Hazy ill-defined bibasilar densities. No pneumothorax, pleural effusion or overt pulmonary edema. Convex left curvature of the mid to lower thoracic spine. Left subclavian Umzqtx-[id number] catheter is unchanged. Cholecystectomy. There is an apparent gastrojejunostomy tube of the upper abdomen redemonstrated, distal tip projecting over the left midabdomen. There is no pneumatosis or pneumoperitoneum. IUD. Surgical clips of the abdominal left upper quadrant and right hemipelvis. Additionally, there are suggested phleboliths of the pelvis. No acute fracture or urolith. IMPRESSION: 1. Apparent ill-defined bibasilar densities are suggestive of probable summation density. 2. Nonobstructive bowel gas pattern without pneumoperitoneum. 3. Gastrojejunostomy tube redemonstrated. ACT 112: Negative or not required by law. The above report was generated using voice recognition software. It may contain grammatical, syntax or spelling errors. Electronically signed by: Danny Sow M.D. 09/08/2019 5:55 PM Dictated: 09/08/191750 Transcribed: 09/08/191750 ABDOMEN AND PELVIS CT WITH IV CONTRAST CT DOSE: 248.25 mGy.cm HISTORY: Acute epigastric abdominal pain EPIGASTRIC PAIN TECHNIQUE: Multiaxial CT images of the abdomen and pelvis were performed following the IV administration of 94 cc of Optiray 320, A dose lowering technique was utilized adhering to the principles of ALARA. COMPARISON STUDY: CT abdomen and pelvis 07/12/2019 FINDINGS: Clear lung bases. No pneumatosis or pneumoperitoneum. Imaged inferior cardiac chambers are unremarkable. The spleen, pancreas and adrenal glands are unremarkable. Cholecystectomy. Mild dilation of the common bile duct is likely a postsurgical basis. The liver is unremarkable. Patency of the hepatic and portal veins. Left kidney is unremarkable. Punctate nonobstructing calculus of the infe rior pole right kidney. No ureteral calculi or obstructive uropathy. Unremarkable urinary bladder. IUD of the mid pelvis appears appropriately positioned. Air is noted within the endocervical canal. Follicular changes of the ovaries. Aorta and IVC are unremarkable. No adenopathy. Gastrojejunostomy tube appears appropriately positioned. There are two metallic density foci which appear to be within loops of jejunum within the abdominal left upper quadrant which are new from the 07/12/2019 exam. There is mild wall thickening of the distal stomach with multiple air and fluid-filled loops of large and small bowel throughout the abdomen and pelvis. No significant bowel distention or obstruction. No ascites or mesenteric inflammation. Prior appendectomy. Soft tissues are unremarkable. Bones appear intact without acute fracture. IMPRESSION: 1. Appropriately positioned gastrojejunostomy tube. 2. No bowel obstruction or pneumoperitoneum. 3. Multiple air and fluid-filled loops of large and small bowel are suggestive of enteritis with diarrheal illness. Additionally, there is wall thickening of the distal stomach suggestive of concomitant gastritis. 4. Prior appendectomy and cholecystectomy. ACT 112: Negative or not required by law. The above report was generated using voice recognition software. It may contain grammatical, syntax or spelling errors. Electronically signed by: Danny Sow M.D. 09/08/2019 9:53 PM Dictated: 09/08/[id number] Transcribed: 09/08/192143 Blood Pressure Blood Pressure Findings: Low blood pressure Blood Pressure Disposition: Referred to patients primary care provider MDM Narrative This patient was evaluated and appeared to be in significant discomfort. IV access was obtained and laboratory work was drawn. An order for cardiac monitoring was placed and the patient was found to be in a sinus tachycardia at 130 bpm. Patient was medicated with IV Dilaudid, IV Zofran and IV Ativan. Abdominal x-ray series was performed and reveals no evidence of obstructive change. Patient was given 2 L of IV normal saline solution with improvement in her tachycardia. She did require several doses of Dilaudid and Zofran. CT imaging was finally ordered secondary to persistent pain and nausea. This study is read as above as likely enteritis. There is no evidence of obstruction or pneumoperitoneum. Given the patient's persistent tachycardia and elevated WBC at 16, the patient will be evaluated by the hospitalist service for further management. Patient is agreeable with the plan. Impression & Plan Epigastric abdominal pain, Acute dehydration, Tachycardia, Leukocytosis Discharge Plan Visit Data *Final* Discharge Date/Time: 09/08/19 23:18 Chief Complaint: Abdominal Pain Stated Complaint: SEVERE ABD PAIN, NAUSEA ED Provider: Senait Arvizu Discharge Problem: Epigastric abdominal pain, Acute dehydration, Tachycardia, Leukocytosis Patient Disposition: Admitted As Inpatient Discharge Instructions Interventions: ED Discharge Assessment Last Done: 09/08/19 23:18 Discharge Problem: Leukocytosis Qualifiers: Leukocytosis type: unspecified Qualified Code(s): D72.829 - Elevated white blood cell count, unspecified
[2019-09-09] MEDS: LACTATED RINGER'S 1,000 ML IV SCH ×2 (00:01→12:03)
[2019-09-09 00:07] LABS: Phosphorus 2.8 mg/dl (2.5-4.9)
[2019-09-09] MEDS ORDERED: TPN/PPN CONSULT PHARMACY PRN (00:31)
[2019-09-09] MEDS ORDERED: haloperidoL 1 MG TAB PO PRN (02:03)
[2019-09-09] MEDS: HYDROmorphone INJ 1 MG/ML SYRINGE IV PRN ×5 (06:29→19:35)
[2019-09-09 06:57] LABS: Basophils # (auto) 0.02 K/uL (0-0.2); Basophils % (auto) 0.2 %; Eosinophils # (auto) 0.11 K/uL (0-0.5); Eosinophils % (auto) 1.2 %; Hematocrit (blood only) 32.4 % (37-47); Hemoglobin 10.5 g/dL (12.0-16.0); Immature Granulocytes # (auto) 0.01 K/uL (0.00-0.02); Immature Granulocytes % (auto) 0.1 %; Lymphocytes # (auto) 2.56 K/uL (1.2-3.4); Lymphocytes % (auto) 28.4 %; Mean Corpuscular Hemoglobin 31.3 pg (25-34); Mean Corpuscular Hgb Conc 32.4 g/dL (32-36); Mean Corpuscular Volume 96.4 fL (80-100); Mean Platelet Volume 9.8 fL (7.4-10.4); Monocytes # (auto) 0.86 K/uL (0.11-0.59); Monocytes % (auto) 9.5 %; Neutrophils # (auto) 5.45 K/uL (1.4-6.5); Neutrophils % (auto) 60.6 %; Platelet Count 262 K/uL (130-400); RDW Coefficient of Variation 12.2 % (11.5-14.5); Red Blood Count 3.36 M/uL (4.2-5.4); White Blood Count 9.01 K/uL (4.8-10.8)
[2019-09-09 07:33] LABS: Alanine Aminotransferase 16 U/L (12-78); Albumin Level 3.1 gm/dl (3.4-5.0); Aspartate Aminotransferase 9 U/L (15-37); BUN Creatinine Ratio 10.5 (10-20); Blood Urea Nitrogen 7 mg/dl (7-18); Carbon Dioxide 24 mmol/L (21-32); Chloride 113 mmol/L (98-107); Creatinine Clr Calc Pharmacy 97.1 ml/min; Est GFR (African American) 141.7; Est GFR (Non-African American) 122.3; Glucose 70 mg/dl (70-99); Potassium 3.5 mmol/L (3.5-5.1); Sodium 141 mmol/L (136-145)
[2019-09-09 07:35] LABS: Alkaline Phosphatase 27 U/L (45-117); Bilirubin Direct < 0.1 mg/dl (0-0.2); Bilirubin,Total 0.3 mg/dl (0.2-1); Total Protein 5.6 gm/dl (6.4-8.2)
[2019-09-09] MEDS: ONDANSETRON INJ 2 MG/ML 2 ML VIAL IV PRN ×4 (08:41→22:17)
[2019-09-09] MEDS: POLYETHYLENE (MIRALAX) 17 GM PACK PO SCH ×2 (08:48→15:00)
[2019-09-09] MEDS: NORETHINDRONE 5 MG TAB PO SCH (08:49)
[2019-09-09] MEDS: HYDROCORTISONE 10 MG TAB PO SCH ×4 (08:49→15:19)
[2019-09-09] MEDS: LINACLOTIDE 72 MCG CAPSULE PO SCH ×2 (08:50→20:54)
[2019-09-09] MEDS: FAMOTIDINE 20 MG TAB PO SCH ×2 (08:50→20:55)
[2019-09-09] MEDS: PANTOprazole 40 MG TAB PO SCH (08:50)
[2019-09-09] MEDS: PYRIDOSTIGMINE BROMIDE 60 MG TAB PO SCH ×3 (08:51→20:54)
--- NOTE | 2019-09-09 11:45 | Hospitalist Progress Note ---
Date of Service September 09, 2019 Assessment & Plan (1) Generalized abdominal pain: -With nausea and vomiting appears to be secondary to gastroenteritis as seen on abdominal imaging. On CT abdomen no evidence of intussusception, last "normal " BM 2 days ago, has intermittent episodes of diarrhea in the past 2 days, monitor. Check stool culture. No hx of recent antibiotic use but will check c diff and stool WBC. -no recent known COVID-19 encounters- noted that data supporting 30-40% of pa tients are having some form of GI upset. No cough, afebrile, no recent travel, lives at home with parents. -Dilaudid q4h prn, has received approximately q6h overnight, patient reports her pain is improved today -Continue Reglan PRN -Zofran PRN -GI Consultation - Dr. Fernández -Pt follows with [facility] - Dr. Stanton Lantigua, office # [phone]. The patient case was discussed with him this afternoon - he notes the pts history of incontinence overflow and hx of constipation - reviewed the CT of the abd with the radiologist and there is no well formed stool seen on imaging. -Continue home medication regimen to include BGentyl, Hycosamine, Linzess -Miralax TID anthony- will back this off to prn only today as has been scheduled, Resume upon discharge or once pain improves and diarrhea stops. (2) Enteritis: -As above, continue to monitor -Electolytes wnl, no leukocytosis, afebrile overnight (3) Gastroparesis: -Chronic, Follows with [facility] GI -Reglan PRN -Continue Linzess and Domperidone (4) Sphincter of Oddi spasm: - Noted (5) Jejunostomy tube in situ: - Recently replaced at [facility]. Site clean, tube location confirmed by imaging - Free H20 100mL BID and PRN flush - Nutrition on board - Continue TPN, gets through [facility] per CM notes, no home health needs (6) On total parenteral nutrition (TPN): -Order placed to start TPN today, monitor how pt tolerates, continue NPO for now and will consider advancing diet later tonight. (7) Adrenal insufficiency: -Chronic. Stable. No evidence of needs for stress dosing -Continue Hydrocortisone 15mg po q AM and 10mg po q afternoon (8) Generalized intestinal dysmotility: Noted. Patient follows at [facility] GI Motility Clinic DVT Ppx - Low risk for DVT, ambulatory Code - Full Dispo - Observation to medical floor, possible dc tomorrow. Admission and Anticipated Discharge Date Admission Date: September 08, 2019 Subjective The patient was seen and examined this morning. Pt states she is doing slightly better today compared to yesterday. She is having less constant abdominal pain and has had less episodes overall. She did have one bout of abdominal pain while i was in the room, and started to cry a little, but then improved within a few minutes. She has not taken anything in by mouth since being admitted and has been doing TPN. At home she typically tries to eat daily, bland foods like cereal, chicken, toast, etc but that it always causes pain. Review of Systems Review of Systems: Constitutional: No fever, sweats or chills Eyes: No diplopia, no worsening or blurred vision ENT: normal hearing, no trouble swallowing Respiratory: No cough, sputum, dyspnea at rest or on exertion Cardiovascular: No chest pain, tightness or palpitations Abdomen: As per HPI, last bowel movement 2 days ago, has intermittent diarrhea as her baseline at home. Tolerating TPN via JG tube and doing flushes multiple times per day. Musculoskeletal: No joint pain, calf pain, swelling Neurologic: No weakness, numbness/tingling, or balance problems Psychiatric: No anxiety or depression Skin: No rash or itch Physical Exam Physical Exam: General: awake, alert, no apparent distress, + thin Head: Normocephalic, atraumatic ENT: PERRL, EOMI, no pharyngeal exudate, mucous membranes moist Chest: Clear to auscultation, on room air, no adventitious breath sounds Cardiac: Regular rate and rhythm, no murmur, no JVD, normal peripheral pulses, good capillary refill Abdominal: + JG tube present, no surrounding erythema, NABS x 4 quadrants, soft, nondistended, + tender to palpation, no rebound, guarding or tenderness Extremities: Normal inspection, no peripheral edema or erythema, calfs nontender to palpation Psych: Normal mood and affect Neuro: AAO x 3, strength intact bilaterally and rated 5/5, no motor deficits, speech is clear, no peripheral sensory deficits Skin: no rash or erythema Results & Data Results & Data ([facility]) Vital Signs (Past 12 Hours) Vital Signs Temp Pulse Pulse Resp BP BP Pulse Ox 09/09/19 10:40 36.3 C L 96 H 20 102/66 97 09/09/19 07:13 36.3 C L 102 H 20 107/74 97 09/09/19 04:00 36.6 C 97 H 18 113/81 100 09/09/19 01:02 111 H 09/08/19 23:41 36.7 C 105 H 16 107/75 98 PG Care Time/CCT Total # of Minutes Spent Total Time Spent with Patient: Total time spent is greater than 50% in coordination of care (as documented) at patient's floor/unit and/or counseling patient: Coding Level of Care Code 89137 Inpt Consult Level 3 Diagnoses Generalized abdominal pain R10.84 Enteritis K52.9 Gastroparesis K31.84 Sphincter of Oddi spasm K83.4 Jejunostomy tube in situ Z93.4 On total parenteral nutrition (TPN) Z78.9 Adrenal insufficiency E27.40 Generalized intestinal dysmotility K59.8
--- NOTE | 2019-09-09 14:40 | Consultation Report ---
DATE OF CONSULTATION: 09/09/2019 GASTROINTESTINAL CONSULTATION REASON FOR EVALUATION: Abdominal pain. HISTORY OF PRESENT ILLNESS: The patient is a 29-year-old well known to me from previous evaluations in the past for abdominal pain and GI dysmotility. The patient also has a history of endometriosis and has had 4 laparoscopies in the last 5 years all at [facility] for fulguration of implants. 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 She does have surgery scheduled at [facility] for hysterectomy on 10/06 to hopefully relieve her endometriosis that has been a persistent problem. She presents to the hospital with 24 hours of abdominal pain. She had some couple of loose stools at home prior to coming to the hospital, but has not had any bowel movements since being hospitalized. Her abdominal pain actually has improved over the course of 24 hours. She did have a CAT scan of the abdomen that showed a little bit of air-fluid levels in the intestines suggesting some sort of enteritis, although her white count is normal and she has had no further bowel movements. She does get a nocturnal TPN at home and uses her gastrojejunostomy tube for venting. According to the CAT scan, her tube is in excellent position. She has had no nausea or vomiting. She has only had 1 or 2 doses of pain medications so far today. PAST MEDICAL HISTORY: Remarkable for SMA syndrome, intestinal dysmotility, endometriosis. She has had adenoidectomy, appendectomy, cholecystectomy, tonsillectomy, SMA surgery, she had a lumpectomy. She has had multiple laparoscopies for endometriosis. MEDICATIONS: Per list. ALLERGIES: Also per list, multiple. FAMILY HISTORY: Noncontributory. SOCIAL HISTORY: The patient is single. She lives at home. She is unemployed. REVIEW OF SYSTEMS: Positive for some depression. PHYSICAL EXAMINATION: GENERAL: The patient appears awake, alert, in no acute distress. VITAL SIGNS: Normal. She is afebrile. ABDOMEN: Shows a gastrostomy tube in the left upper abdomen, which appears in good position and no surrounding inflammation and the lower abdomen is slightly tender to palpation. No mass or rebound. No hepatosplenomegaly. EXTREMITIES: Showed no clubbing, cyanosis or edema. NEUROLOGIC: Nonfocal. IMPRESSION AND PLAN: The patient has recurrent abdominal pain. This is likely multifactorial. The patient has severe endometriosis and is scheduled for surgery for hysterectomy next month. It is possible that this could be contributing to her symptoms and may actually been etiologic in her intussusception that resolved spontaneously in June. She also has intestinal dysmotility as well that can also be contributing. At this point, she is getting better. She is not having any diarrhea. I would recommend continuing current measures and TPN, and if she is feeling better tomorrow, hopefully, she can be discharged to follow up as an outpatient. Hopefully, she will improve following her hysterectomy for the endometriosis.
[2019-09-09] MEDS ORDERED: POLYETHYLENE (MIRALAX) 17 GM PACK PO PRN (15:29)
[2019-09-09] MEDS: LORazepam 0.5 MG/1 ML VIAL IV PRN (18:39)
[2019-09-09] MEDS: CETIRIZINE HCL 10 MG TABLET PO SCH (20:55)
[2019-09-09] MEDS ORDERED: TPN IV SCH ×2 (21:00→21:45)
[2019-09-09] MEDS ORDERED: CENTRAL PN IV SCH ×2 (21:00→21:45)
[2019-09-09] MEDS ORDERED: LORazepam 1 MG TAB PO STA (21:13)
[2019-09-09] MEDS ORDERED: MoRPHine SULFATE 2 MG/ML CARP IV STA (21:52)
[2019-09-09] MEDS ORDERED: MoRPHine SULFATE 2 MG/ML CARP ONE (21:59)
[2019-09-09] MEDS ORDERED: [UNRECOGNIZED DRUG - REMARK] SCH (22:00)
[2019-09-10] MEDS ORDERED: HEPARIN 100 UNIT/ML 5ML FLUSH FLUSH PRN (00:25)
[2019-09-10] MEDS ORDERED: Nursing to Pharmacy Communication ONE (00:26)
[2019-09-10] MEDS: HYDROmorphone INJ 1 MG/ML SYRINGE IV PRN ×5 (01:00→22:00)
[2019-09-10 06:55] LABS: BUN Creatinine Ratio 21.3 (10-20); Calcium 8.9 mg/dl (8.5-10.1); Creatinine Clr Calc Pharmacy 95.1 ml/min; Est GFR (African American) 142.5; Est GFR (Non-African American) 122.9; Magnesium 2.2 mg/dl (1.8-2.4); Phosphorus 3.3 mg/dl (2.5-4.9); Potassium 4.2 mmol/L (3.5-5.1)
[2019-09-10] MEDS: ONDANSETRON INJ 2 MG/ML 2 ML VIAL IV PRN ×3 (08:39→22:14)
[2019-09-10] MEDS: LORazepam 0.5 MG/1 ML VIAL IV PRN ×3 (09:37→22:57)
--- NOTE | 2019-09-10 10:02 | Progress Notes ---
DATE: 09/10/2019 SUBJECTIVE: The patient reports that she did not have a very good afternoon yesterday or evening. She vomited a few times, mostly bilious material and was having difficulty urinating. She was straight catheterized, but still could not urinate after that, so has a Weber indwelling today, not experiencing as much pain as yesterday, still has not moved her bowels. OBJECTIVE: VITAL SIGNS: Her blood pressure is 95/63, pulse 101, respirations 20, temperature is 36.8, O2 saturation on room air is 97%. ABDOMEN: Shows the jejunostomy tube hooked to suction with some bilious material in the bag. Weber catheter is draining clear yellow urine. Abdomen is soft. It is less distended and tympanitic today compared to yesterday and somewhat less tender, although she does have some tenderness in the lower abdomen bilaterally. IMPRESSION: The patient had a little bit of a setback. At this point, we will continue to encourage her to get up and move around and limit any pain medication if possible as I believe that is probably contributing to her urinary retention. She will continue to finish her TPN bag this morning because it was interrupted during the night when she was vomiting. Hopefully, things will improve today and she can have her Weber removed either later today or tomorrow.
[2019-09-10] MEDS: FAMOTIDINE 20 MG TAB PO SCH ×2 (10:27→20:51)
[2019-09-10] MEDS: PANTOprazole 40 MG TAB PO SCH (10:27)
[2019-09-10] MEDS: NORETHINDRONE 5 MG TAB PO SCH (10:28)
[2019-09-10] MEDS: LINACLOTIDE 72 MCG CAPSULE PO SCH ×2 (10:28→20:51)
[2019-09-10] MEDS: PYRIDOSTIGMINE BROMIDE 60 MG TAB PO SCH ×3 (10:28→20:50)
[2019-09-10] MEDS: HYDROCORTISONE 10 MG TAB PO SCH ×2 (10:29→16:20)
--- NOTE | 2019-09-10 15:17 | Pharmacy Report ---
PHA: Parenteral Nutrition Con - Date of Service September 10, 2019 - Scope Pharmacy was consulted on 09/08 to manage parenteral nutrition orders for this patient. - Subjective The patient is currently on day #2 of central parenteral nutrition chronic tpn - Objective Height: 5 ft 6 in Weight: 44.9 kg Diet: NPO Intake & Output (24hrs):: Intake & Output 09/08/19 09/09/19 09/10/19 09/11/19 06:59 06:59 06:59 06:59 Intake Total 1999 1962.667 / 1962.667 Output Total 3175 / 3175 500 / 500 Balance 1999 -1212.333 / -1212.333 -500 / -500 Weight 46.6 kg 44.9 kg Laboratory Data (Last 24 Hr):: 09/10/19 05:19 Sodium 139 Potassium 4.2 D Chloride 107 Carbon Dioxide 31 BUN 13 D Creatinine 0.63 Glucose 92 Calcium 8.9 Phosphorus 3.3 Magnesium 2.2 Triglycerides 121 Nutrition Assessment:: Please refer to the Notes section of the EMR for the most recent suction operator note. - Plan Pharmacy consulted for TPN management on 09/08. Received cyclic tpn last evening similar to home cyclic tpn formula. Labs stable this AM, however patient with nausea/vomiting overnight. Rate of cyclic tpn had been decreased last evening due to patient request. Patient states nausea less with lower rate. Had discussion with provider today and will trial continuous tpn today to provider lower infusion rate to see if patient better tolerates. Appears we have utilized continuous tpn on prior admissions. For day #2 of PN administration, the following will be ordered: Macronutrients Amino acids 120 grams/day Dextrose 160 grams/day Lipids 20 grams/day Micronutrients Sodium acetate 90 mEq Potassium phosphate 30 mMol Potassium acetate 30 mEq Magnesium sulfate 12.18 mEq Calcium gluconate 13.18 mEq Trace Elements 1 mL Total volume 1650 mL to be infused over 24 hrs will provide 1224 kcal/day Labs, as indicated, will be ordered per protocol Pharmacy will continue to follow and adjust parenteral nutrition orders on a daily basis. Thank you for allowing us to participate in the care of this patient.
[2019-09-10] MEDS ORDERED: TPN IV SCH (16:00)
[2019-09-10] MEDS ORDERED: CENTRAL PN IV SCH (16:00)
--- NOTE | 2019-09-10 20:21 | Hospitalist Progress Note ---
Date of Service September 10, 2019 Assessment & Plan (1) Generalized abdominal pain: -With nausea and vomiting appears to be secondary to gastroenteritis as seen on abdominal imaging. On CT abdomen no evidence of intussusception, last "normal " BM 2 days ago, has intermittent episodes of diarrhea in the past 2 days, monitor. Check stool culture. No hx of recent antibiotic use but will check c diff and stool WBC. -no recent known COVID-19 encounters- noted that data supporting 30-40% of pa tients are having some form of GI upset. No cough, afebrile, no recent travel, lives at home with parents. -Dilaudid q4h prn, has received approximately q6h overnight, patient reports her pain is improved today; -will need to decrease dilaudid as this may contribute to constipation. -may also contribute to her urinary retention. -Continue Reglan PRN -Zofran PRN -GI Consultation - Dr. Fernández -Pt follows with [facility] GI - Dr. Stanton Lantigua, office # [phone]. The patient case was discussed with him this afternoon - he notes the pts history of incontinence overflow and hx of constipation - reviewed the CT of the abd with the radiologist and there is no well formed stool seen on imaging. -Continue home medication regimen to include BGentyl, Hycosamine, Linzess -Miralax TID anthony will resume miralax as patient has not had diarrhea today. (2) Enteritis: -As above, continue to monitor -Electolytes wnl, no leukocytosis, afebrile overnight (3) Gastroparesis: -Chronic, Follows with [facility] GI -Reglan PRN -Continue Linzess and Domperidone (4) Sphincter of Oddi spasm: - Noted (5) Jejunostomy tube in situ: - Recently replaced at [facility]. Site clean, tube location confirmed by imaging - Free H20 100mL BID and PRN flush - Nutrition on board -Patient attributes TPN to nausea, will place on continuous TPN for today. - Continue TPN, gets through [facility] per CM notes, no home health needs (6) On total parenteral nutrition (TPN): -continue TPN. -not tolerating food intake at this time. (7) Adrenal insufficiency: -Chronic. Stable. No evidence of needs for stress dosing -Continue Hydrocortisone 15mg po q AM and 10mg po q afternoon (8) Generalized intestinal dysmotility: Noted. Patient follows at [facility] Motility Clinic DVT Ppx - Low risk for DVT, ambulatory Code - Full (9) Urinary retention: Has an acute episode. required guardado placement. appears to have been a difficult insertion. will consult urology. opiates may have played a role. There was question that patient had reglan, but it was confimred that this was not the case. Admission and Anticipated Discharge Date Admission Date: September 10, 2019 Subjective Patient reports feeling slightly improved today. She had a rough night overnight and yesterday. She had abdominal pain, nausea, and vomiting. She improved after guardado was placed. Review of Systems Review of Systems: Constitutional: No fever, sweats or chills Eyes: No diplopia, no worsening or blurred vision ENT: normal hearing, no trouble swallowing Respiratory: No cough, sputum, dyspnea at rest or on exertion Cardiovascular: No chest pain, tightness or palpitations Abdomen: As per HPI, last bowel movement 2 days ago, has intermittent diarrhea as her baseline at home. Tolerating TPN via JG tube and doing flushes multiple times per day. Musculoskeletal: No joint pain, calf pain, swelling Neurologic: No weakness, numbness/tingling, or balance problems Psychiatric: No anxiety or depression Skin: No rash or itch Physical Exam Physical Exam: General: awake, alert, no apparent distress, + thin Head: Normocephalic, atraumatic ENT: PERRL, EOMI, no pharyngeal exudate, mucous membranes moist Chest: Clear to auscultation, on room air, no adventitious breath sounds Cardiac: Regular rate and rhythm, no murmur, no JVD, normal peripheral pulses, good capillary refill Abdominal: + JG tube present, no surrounding erythema, NABS x 4 quadrants, soft, nondistended, non tender to superficial palpation., no rebound, guarding or tenderness Extremities: Normal inspection, no peripheral edema or erythema, calfs nontender to palpation Psych: Normal mood and affect Neuro: AAO x 3, strength intact bilaterally and rated 5/5, no motor deficits, speech is clear, no peripheral sensory deficits Skin: no rash or erythema Results & Data Results & Data ([facility]) Vital Signs (Past 12 Hours) Vital Signs Temp Pulse Pulse Resp BP Pulse Ox 09/10/19 19:00 37 C 88 18 92/62 L 98 09/10/19 17:54 90 09/10/19 14:48 36.8 C 104 H 20 97/65 L 99 09/10/19 10:57 36.5 C 96 H 20 94/60 L 97 09/10/19 08:45 102 H PG Care Time/CCT Total # of Minutes Spent Total Time Spent with Patient: Total time spent is greater than 50% in coordination of care (as documented) at patient's floor/unit and/or counseling patient: Coding Level of Care Code 57874 Subseq Hosp Care Lvl 3 Diagnoses Generalized abdominal pain R10.84 Enteritis K52.9 Gastroparesis K31.84 Sphincter of Oddi spasm K83.4 Jejunostomy tube in situ Z93.4 On total parenteral nutrition (TPN) Z78.9 Adrenal insufficiency E27.40 Generalized intestinal dysmotility K59.8 Urinary retention R33.9 Time Spent (min) 35
[2019-09-10] MEDS: CETIRIZINE HCL 10 MG TABLET PO SCH (20:51)
[2019-09-10] MEDS ORDERED: POLYETHYLENE (MIRALAX) 17 GM PACK PO SCH (21:00)
[2019-09-11] MEDS: HYDROmorphone INJ 1 MG/ML SYRINGE IV PRN ×3 (05:49→20:02)
[2019-09-11] MEDS: LORazepam 0.5 MG/1 ML VIAL IV PRN ×2 (05:53→15:35)
[2019-09-11 06:02] LABS: BUN Creatinine Ratio 26.9 (10-20); Creatinine Clr Calc Pharmacy 83.2 ml/min; Est GFR (Non-African American) 114.8; Magnesium 2.2 mg/dl (1.8-2.4); Potassium 3.9 mmol/L (3.5-5.1)
[2019-09-11 06:22] LABS: Phosphorus 4.4 mg/dl (2.5-4.9)
[2019-09-11] MEDS: NORETHINDRONE 5 MG TAB PO SCH (08:43)
[2019-09-11] MEDS: PYRIDOSTIGMINE BROMIDE 60 MG TAB PO SCH ×3 (08:43→20:58)
[2019-09-11] MEDS: POLYETHYLENE (MIRALAX) 17 GM PACK PO SCH ×3 (08:43→20:56)
[2019-09-11] MEDS: HYDROCORTISONE 10 MG TAB PO SCH ×2 (08:44→15:51)
[2019-09-11] MEDS: FAMOTIDINE 20 MG TAB PO SCH ×2 (08:44→20:58)
[2019-09-11] MEDS: PANTOprazole 40 MG TAB PO SCH (08:44)
[2019-09-11] MEDS: LINACLOTIDE 72 MCG CAPSULE PO SCH ×2 (08:44→20:58)
--- NOTE | 2019-09-11 11:45 | Progress Notes ---
DATE: 09/11/2019 SUBJECTIVE: The patient reports that her abdominal pain persists, but is not as bad as it was a couple days ago. This is her fourth day of hospitalization. She has had no bowel movements since being hospitalized and is starting on MiraLax to try to evoke some colonic action. She still has an indwelling Weber. This is day 2 of her urinary retention. Her jejunostomy drain tube is draining a small amount of bilious material. She is not having any nausea or vomiting. PHYSICAL EXAMINATION: VITAL SIGNS: Blood pressure is 93/62, pulse 93. She is afebrile with a temperature of 37, room air O2 saturation is 95%. ABDOMEN: Shows a clean drain tube in the epigastric area. There is a little bit of tympany in the lower abdomen and some bilateral lower abdominal tenderness. No mass or rebound. Liver and spleen are not enlarged. IMPRESSION: The patient is having abdominal pain, probably from her endometriosis. She has not moved her bowels in 4 days, so they are giving her MiraLax to try to get her bowels to move. It may be worth a trial to remove her Weber catheter to see if she can urinate on her own today. She is still awaiting her surgery at [facility] on 10/06 for hysterectomy for her endometriosis, which is probably contributing to her symptoms as well.
[2019-09-11] MEDS: ONDANSETRON INJ 2 MG/ML 2 ML VIAL IV PRN ×2 (13:19→19:56)
[2019-09-11] MEDS ORDERED: TPN IV SCH (16:00)
[2019-09-11] MEDS ORDERED: CENTRAL PN IV SCH (16:00)
[2019-09-11] MEDS: SENNA 8.8 MG/5 ML UDP PO SCH (20:58)
[2019-09-11] MEDS: CETIRIZINE HCL 10 MG TABLET PO SCH (20:58)
--- NOTE | 2019-09-11 22:31 | Hospitalist Progress Note ---
Date of Service September 11, 2019 Assessment & Plan (1) Generalized abdominal pain: -With nausea and vomiting appears to be secondary to gastroenteritis as seen on abdominal imaging. On CT abdomen no evidence of intussusception, last "normal " BM 2 days ago, has intermittent episodes of diarrhea in the past 2 days, --Now with contipation, no signs of diarrhea, -will cancel stool studies. -Doubt COVID infection as clinical picture is similar to her past presentaions. -No cough, afebrile, no recent travel, lives at home with parents. -Dilaudid q4h prn, has received approximately q6h overnight, patient reports her pain is improved today; -will decrease dilaudid to .5mg from 1 mg; will try to taper this off. - dilaudid is likely contributing to the patient's constipation. -may also contribute to her urinary retention. -Continue Reglan PRN -Zofran PRN -GI Consultation - Dr. Fernández -Pt follows with [facility] - Dr. Stanton Lantigua, office # [phone]. The patient case was discussed with him this afternoon - he notes the pts history of incontinence overflow and hx of constipation - reviewed the CT of the abd with the radiologist and there is no well formed stool seen on imaging. -Continue home medication regimen to include BGentyl, Hycosamine, Linzess -Miralax TID -may consider adding relistor. Nausea and vomiting has improved. (2) Enteritis: -As above, continue to monitor -Electolytes wnl, no leukocytosis, afebrile overnight (3) Gastroparesis: -Chronic, Follows with [facility] GI -Reglan PRN -Continue Linzess and Domperidone (4) Sphincter of Oddi spasm: - Noted (5) Jejunostomy tube in situ: - Recently replaced at [facility]. Site clean, tube location confirmed by imaging - Free H20 100mL BID and PRN flush - Nutrition on board -Patient attributes TPN to nausea, will place on continuous TPN for today. - Continue TPN, gets through [facility] per CM notes, no home health needs (6) On total parenteral nutrition (TPN): -continue TPN. -not tolerating food intake at this time. (7) Adrenal insufficiency: -Chronic. Stable. No evidence of needs for stress dosing -Continue Hydrocortisone 15mg po q AM and 10mg po q afternoon (8) Generalized intestinal dysmotility: Noted. Patient follows at [facility] GI Motility Clinic DVT Ppx - Low risk for DVT, ambulatory Code - Full (9) Urinary retention: Has an acute episode. required guardado placement. appears to have been a difficult insertion. discussed with urology, will hold consult. will do a voiding trial prior to discharge. opiates may have played a role. There was question that patient had taken one dose of reglan, but it was confirmed that this was not the case. Patient did not take any reglan. Admission and Anticipated Discharge Date Admission Date: September 10, 2019 Subjective 29 yo female reports feeling well. She has no new complaints. Main issue is her diarrhea. She would like to continue on continuous TPN feedings as her nausea has improved. Patient reports that she attributes TPN feedings with nausea. Updated mother. Review of Systems Review of Systems: All systems reviewed & are unremarkable except as noted in HPI & below Physical Exam 2 Physical Exam: General: awake, alert, no apparent distress, + thin Head: Normocephalic, atraumatic ENT: PERRL, EOMI, no pharyngeal exudate, mucous membranes moist Chest: Clear to auscultation, on room air, no adventitious breath sounds Cardiac: Regular rate and rhythm, no murmur, no JVD, normal peripheral pulses, good capillary refill Abdominal: + JG tube present, no surrounding erythema, NABS x 4 quadrants, soft, nondistended, non tender to superficial palpation., no rebound, guarding or tenderness Extremities: Normal inspection, no peripheral edema or erythema, calfs nontender to palpation Psych: Normal mood and affect Neuro: AAO x 3, strength intact bilaterally and rated 5/5, no motor deficits, speech is clear, no peripheral sensory deficits Skin: no rash or erythema Results & Data Results & Data ([facility]) Vital Signs (Past 12 Hours) Vital Signs Temp Pulse Pulse Resp BP Pulse Ox 09/11/19 19:28 36.6 C 09/11/19 18:59 100 H 18 94/67 L 97 09/11/19 16:00 81 09/11/19 14:51 37.1 C 101 H 20 93/63 L 97 09/11/19 12:00 36.6 C 98 H 20 94/65 L 97 PG Care Time/CCT Total # of Minutes Spent Total Time Spent with Patient: Total time spent is greater than 50% in coordination of care (as documented) at patient's floor/unit and/or counseling patient: Coding Level of Care Code 80056 Subseq Hosp Care Lvl 3 Diagnoses Generalized abdominal pain R10.84 Enteritis K52.9 Gastroparesis K31.84 Sphincter of Oddi spasm K83.4 Jejunostomy tube in situ Z93.4 On total parenteral nutrition (TPN) Z78.9 Adrenal insufficiency E27.40 Generalized intestinal dysmotility K59.8 Urinary retention R33.9 Time Spent (min) 35
[2019-09-12] MEDS: LORazepam 0.5 MG/1 ML VIAL IV PRN (00:31)
[2019-09-12] MEDS: HYDROmorphone INJ 1 MG/ML SYRINGE IV PRN (01:37)
[2019-09-12 08:18] LABS: Calcium 9.4 mg/dl (8.5-10.1); Creatinine Clr Calc Pharmacy 76.9 ml/min; Est GFR (African American) 122.6; Est GFR (Non-African American) 105.8; Magnesium 2.3 mg/dl (1.8-2.4); Phosphorus 4.1 mg/dl (2.5-4.9); Potassium 3.6 mmol/L (3.5-5.1)
[2019-09-12] MEDS: PYRIDOSTIGMINE BROMIDE 60 MG TAB PO SCH ×2 (08:44→14:23)
[2019-09-12] MEDS: POLYETHYLENE (MIRALAX) 17 GM PACK PO SCH ×2 (08:44→14:24)
[2019-09-12] MEDS: HYDROCORTISONE 10 MG TAB PO SCH ×2 (08:45→16:08)
[2019-09-12] MEDS: FAMOTIDINE 20 MG TAB PO SCH (08:46)
[2019-09-12] MEDS: NORETHINDRONE 5 MG TAB PO SCH (08:46)
[2019-09-12] MEDS: LINACLOTIDE 72 MCG CAPSULE PO SCH (08:46)
[2019-09-12] MEDS: SENNA 8.8 MG/5 ML UDP PO SCH (08:47)
[2019-09-12] MEDS: PANTOprazole 40 MG TAB PO SCH (08:47)
[2019-09-12] MEDS ORDERED: DEXTROSE 5% 1,000 ML IV SCH (11:45)
[2019-09-12 12:14] LABS: Basophils # (auto) 0.03 K/uL (0-0.2); Basophils % (auto) 0.3 %; Eosinophils # (auto) 0.11 K/uL (0-0.5); Eosinophils % (auto) 1.2 %; Hematocrit (blood only) 40.8 % (37-47); Hemoglobin 13.7 g/dL (12.0-16.0); Immature Granulocytes # (auto) 0.01 K/uL (0.00-0.02); Immature Granulocytes % (auto) 0.1 %; Lymphocytes # (auto) 2.66 K/uL (1.2-3.4); Lymphocytes % (auto) 29.3 %; Mean Corpuscular Hemoglobin 32.6 pg (25-34); Mean Corpuscular Hgb Conc 33.6 g/dL (32-36); Mean Corpuscular Volume 97.1 fL (80-100); Mean Platelet Volume 10.5 fL (7.4-10.4); Monocytes # (auto) 0.89 K/uL (0.11-0.59); Monocytes % (auto) 9.8 %; Neutrophils # (auto) 5.37 K/uL (1.4-6.5); Neutrophils % (auto) 59.3 %; Platelet Count 351 K/uL (130-400); RDW Coefficient of Variation 12.1 % (11.5-14.5); White Blood Count 9.07 K/uL (4.8-10.8)
[2019-09-12] MEDS ORDERED: SODIUM CHLORIDE 0.9% 1000ML 1,000 ML IV SCH (15:05)
--- NOTE | 2019-09-12 15:28 | Progress Notes ---
DATE: 09/12/2019 SUBJECTIVE: The patient reports a decrease in abdominal pain. She did have a fairly large soft bowel movement today after drinking MiraLax after 4 days of not having a bowel movement. When she did stand up, she did have a little bit of tachycardia, so they are giving her an extra liter of fluid today. She had her Weber removed and has urinated twice on her own, and her jejunostomy drainage tube has been capped, and she is not having any more nausea. PHYSICAL EXAMINATION: GENERAL: The patient appears in no acute distress. VITAL SIGNS: Blood pressure is 102/68, pulse 112, temperature is 36.8, room air saturation 97%. ABDOMEN: Shows less distention and tympany. There is a little bit of gas in the right lower quadrant and no urinary distention, no tenderness. IMPRESSION: The patient is improving. I think most of her pain is derived from her endometriosis, which is scheduled to be surgically operated on 10/06 at [place]. The patient is set to be discharged later today.
--- NOTE | 2019-09-12 15:31 | Pharmacy Report ---
PHA: Parenteral Nutrition Con - Date of Service September 12, 2019 - Scope Pharmacy was consulted on 09/08 to manage parenteral nutrition orders for this patient. - Subjective The patient is currently on day #4 of central parenteral nutrition for chronic TPN use at home s/p jejunostomy. - Objective Height: 5 ft 6 in Weight: 44.4 kg Diet: NPO Intake & Output (24hrs):: Intake & Output 09/10/19 09/11/19 09/12/19 09/13/19 06:59 06:59 06:59 06:59 Intake Total 1962.667 / 2252.724 0316 / 1650 Output Total 3175 / 3175 1800 / 1800 1930 / 1930 675 / 675 Balance -1212.333 / -1212.333 -1800 / -1800 -280 / -280 -675 / -675 Weight 44.9 kg 44.5 kg 44.4 kg Laboratory Data (Last 24 Hr):: 09/12/19 07:11 Sodium 139 Potassium 3.6 Chloride 101 Carbon Dioxide 33 H BUN 27 H Creatinine 0.77 Glucose 104 H Calcium 9.4 Phosphorus 4.1 Magnesium 2.3 Nutrition Assessment:: Please refer to the Notes section of the EMR for the most recent head mechanic note. - Plan For day #4 of PN administration, the following will be ordered: Macronutrients Amino acids 120 grams/day Dextrose 160 grams/day Lipids 20 grams/day Micronutrients Combined electrolytes mL - contains 35 mEq Na, 20 meq K, 4.5 mEq Ca, 5 mEq Mg, 35 mEq Cl, 29.5 mEq acetate per 20 mL Sodium phosphate MMol Sodium chloride mEq Sodium acetate 90 mEq Potassium phosphate 30 mMol Potassium chloride mEq Potassium acetate 50 mEq Magnesium sulfate 12.18 mEq Calcium gluconate 9.2 mEq Thiamine 100 mg Folic acid 1 mg Trace Elements 1 mL Total volume 1650 mL to be infused over 24 hrs will provide 1224 kcal/day Labs, as indicated, will be ordered per protocol Pharmacy will continue to follow and adjust parenteral nutrition orders on a daily basis. Thank you for allowing us to participate in the care of this patient.
[2019-09-12] MEDS ORDERED: TPN IV SCH (16:00)
[2019-09-12] MEDS ORDERED: CENTRAL PN IV SCH (16:00)
[2019-09-12 17:16] LABS: BUN Creatinine Ratio 30.7 (10-20); Calcium 8.3 mg/dl (8.5-10.1); Est GFR (African American) 128.7; Potassium 4.1 mmol/L (3.5-5.1)
--- NOTE | 2019-09-15 23:57 | Discharge Summary ---
Date of Service September 12, 2019 Admission HPI Per Admitting Provider Pilar Garcia is a medically complex 29yo C female with multiple medical problems to include anemia, gastroparesis, sphincter of Oddi spasm, AI, hypophosphatemia, intestinal dysmotility, asthma, Crohns disease. She has a left anterior chest port and is currently on TPN. She follows with GI her (Dr. Fernández) as well as [facility]. Most recently admitted to [facility] in June for pancreatitis. Patient presents today with abdominal pain, bandlike in the lower part of her abdomen with radiation to her back. Pain has been dull and ongoing for the last 2-3 days, acutely worsened this afternoon. Also with nausea and 5 episodes of bilious vomiting. She reports an elevated temperature of 99.9 earlier today as well as some chills. No additional complaints. No true fever, chest pain, cough, SOB. No diarrhea, melena, hematochezia, dysuria. Patient states that this pain is similar to her prior intussusception. Patient denies fevers/cough/CP/SOB. No sick contacts. No Covid-19+ contacts. She traveled to [facility] last week to have her jejunostomy tube replaced, otherwise no travel. No prior Covid testing. ER Course: Dilaudid 0.5mg x 2, 1mg x 1, AtivanShannan Principal Diagnosis Abdominal pain Discharge Exam General: awake, alert, no apparent distress, + thin Head: Normocephalic, atraumatic ENT: PERRL, EOMI, no pharyngeal exudate, mucous membranes moist Chest: Clear to auscultation, on room air, no adventitious breath sounds Cardiac: Regular rate and rhythm, no murmur, no JVD, normal peripheral pulses, good capillary refill Abdominal: + JG tube present, no surrounding erythema, NABS x 4 quadrants, soft, nondistended, non tender to superficial palpation., no rebound, guarding or tenderness Extremities: Normal inspection, no peripheral edema or erythema, calfs nontender to palpation Psych: Normal mood and affect Skin: no rash or erythema Discharge Data Allergies Allergy/AdvReac Type Severity Reaction Status Date / Time amoxicillin Allergy Intermediate RASH Verified 09/08/19 17:15 Bactrim Allergy Intermediate RASH Verified 08/13/17 12:16 cefazolin Allergy Intermediate rash Verified 09/08/19 17:15 Cephalosporins Allergy Intermediate HIVES Verified 09/08/19 17:15 clavulanic acid Allergy Intermediate HIVES Verified 09/08/19 17:15 Penicillins Allergy Intermediate HIVES Verified 09/08/19 17:15 prochlorperazine Allergy Intermediate HIVES Verified 09/08/19 17:15 promethazine Allergy Intermediate hives, Verified 09/08/19 17:15 throat swelling sulfamethoxazole Allergy Intermediate RASH Verified 09/08/19 17:15 sumatriptan Allergy Intermediate RASH Verified 09/08/19 17:15 trimethoprim Allergy Intermediate RASH Verified 09/08/19 17:15 metoclopramide AdvReac Severe anxiety/ Verified 09/10/19 13:44 jittery diphenhydramine AdvReac Intermediate Tachycardia, Verified 09/08/19 17:15 Severe Anxiety WITH IV ONLY erythromycin base AdvReac Intermediate GI SYMPTOMS Verified 09/08/19 17:15 citalopram [From Celexa] AdvReac Unknown Verified 09/08/19 17:15 MULTIVITAMIN Allergy Intermediate Unknown Uncoded 09/08/19 17:15 Consultations 09/08/19 23:38 Consult Gastroenterology Routine Ordered Studies 09/08/19 21:00 CT abd pelvis IV con only Stat Hospital Course (1) Generalized abdominal pain: -With nausea and vomiting appears to be secondary to gastroenteritis as seen on abdominal imaging. On CT abdomen no evidence of intussusception, last "normal " BM 2 days ago, has intermittent episodes of diarrhea in the past 2 days, --Now with contipation, no signs of diarrhea, -will cancel stool studies. -Doubt COVID infection as clinical picture is similar to her past presentaions. -No cough, afebrile, no recent travel, lives at home with parents. -Dilaudid q4h prn, has received approximately q6h overnight, patient reports her pain is improved today; -will decrease dilaudid to .5mg from 1 mg; will try to taper this off. - dilaudid is likely contributing to the patient's constipation. -may also contribute to her urinary retention. -Continue Reglan PRN -Zofran PRN -GI Consultation - Dr. Fernández -Pt follows with [facility] - Dr. Stanton Lantigua, office # [phone]. The patient case was discussed with him this afternoon - he notes the pts history of incontinence overflow and hx of constipation - reviewed the CT of the abd with the radiologist and there is no well formed stool seen on imaging. -Continue home medication regimen to include BGentyl, Hycosamine, Linzess -Miralax TID On day of discharge, limited pain medication, patient had a small BM. Patient feels better and wants to be discharged. Nausea and vomiting has improved. (2) Enteritis: -As above, continue to monitor -Electolytes wnl, no leukocytosis, afebrile overnight (3) Gastroparesis: -Chronic, Follows with [facility] GI -Reglan PRN -Continue Linzess and Domperidone (4) Sphincter of Oddi spasm: - Noted (5) Jejunostomy tube in situ: - Recently replaced at [facility]. Site clean, tube location confirmed by imaging - Free H20 100mL BID and PRN flush - Nutrition on board -Patient attributes TPN to nausea, will place on continuous TPN for today. - Continue TPN, gets through [facility] per CM notes, no home health needs (6) On total parenteral nutrition (TPN): -continue TPN. -not tolerating food intake at this time. (7) Adrenal insufficiency: -Chronic. Stable. No evidence of needs for stress dosing -Continue Hydrocortisone 15mg po q AM and 10mg po q afternoon (8) Generalized intestinal dysmotility: Noted. Patient follows at [facility] DVT Ppx - Low risk for DVT, ambulatory Code - Full (9) Urinary retention: Has an acute episode. required guardado placement. appears to have been a difficult insertion. discussed with urology, will hold consult. will do a voiding trial prior to discharge. opiates may have played a role. There was question that patient had taken one dose of reglan, but it was confirmed that this was not the case. Patient did not take any reglan. On day of discharge, patient passed voiding trial. (10) POTS (postural orthostatic tachycardia syndrome): It appears patient may have POTS, as her HR increases with standing to over 120. Patient already on hydrocortisone. May benefit from midodrine. Will try lifestyle modifications. Will defer midodrine to PCP. (11) Acute kidney insufficiency: Prerenal. BUN has increased. Gave 1 liter, and BUN has mildly improved. patient will take 2 liters of NSS at home. Will repeat test tomorrow. If symptoms worsen, then recommend she returns to hospital. Will f/u with her regular doctor in 1-2 weeks. Total Time Total Time Spent Total Time Spent (In Minutes): 40 Total Time Includes: Examination of the Patient, Discharge Planning and Medication Reconciliation Discharge Plan Discharge Items Patient Disposition: Home - Self-Care Reason For Visit: ABDOMINAL PAIN Discharge Diagnosis: abdomianl pain/ nausea/ vomiting Activity: Resume your previous activity Non-emergency contact: Primary Care Provider Call non-emergency contact if: you have any medication questions Follow-up/Referrals: Mariah Addison DO [Primary Care Provider] - Diet: Other - See Diet Comment Diet Comment: resume previous diet Addtl Attending Provider Instructions: You abdominal pain improved during your hospital stay. During your stay, you developed urinary retention, this may have been secondary to pain medicine. You had a guardado catheter temporarily, this was removed and you passed your voiding trial. I spoke with Dr. Stephane Lantigua and he recommends that you call him to set up a tele medicine appointment for 1 week or 2. Resume home medications. Continue to use 2 liters of Normal saline run for about 125 ml/hr. Recheck BMP for tomorrow at noon (carlos). Below are recommendations for Postural Orthostatic Tachycardia Syndrome These may help with some of your symptoms and heart rate. Try them for about 6 weeks. If no significant improvement, then we may consider adding some medications such as fludrocortisone or midodrine. Recommendations for POTS: Lifestyle Changes - Increase fluid consumption- at least a gallon of water a day (128 Oz or 3.7 L daily) - half of that amount should be with beverages that contain electrolytes (such as Pedialyte powder because of the high electrolyte content). - Increase salt (~10-12 g ~ 2 teaspoons daily of salt) such as salty soup. Consume extra salt while exercising (e.g. salty pretzels). - Increase intake of potassium rich diet- helps retain fluids, redistribute the volume and prevents muscle cramping. - Avoid energy drinks, caffeinated beverages and [id number]-cml-[id number] cough or cold medications with a decongestant (that overly stimulate the heart, such as sympathomimetic drugs). You may use allergy medications without decongestants (without the "D) and home remedies. - Increase regular, aerobic exercise- to help mobilizing the circulation and enhancing vascular tone (i.e. Brisk walking and swimming, etc.). - Establish exercises to strengthen lower limb and abdominal muscles so as to minimize lower limb and abdominal pooling of blood volume. - Elevation of the head of the bed 4-6 inches. - Consider the use of compression stockings and garments or abdominal binders may help reduce the pooling of blood in your legs and reduce the symptoms. - While sitting and watching TV, elevate, flex and move feet. - Avoid prolong standing/sitting and change positions slowly. Move your legs while standing to encourage blood to flow from your legs to your heart. - When starting to feel dizzy or about to black out, lay on the ground and elevate your legs. This will increase blood flow to the brain which will prevent passing out/syncope. - Incorporate positive feeling and biofeedback into lifestyle. - Practice breathing relaxation techniques. (visit this website: www.[employer]/relaxation). - Eliminate external stresses. - Pursing enjoyable activities as this may help to keep you from focusing on your symptoms. - Have enough sleep. Sleep deprivation may exacerbate POTS symptoms. - Search the web for Sleep Hygiene for tips for better sleep. Pending Studies at Discharge: No Stand-Alone Forms: My [employer], Smoking Cessation Medications and DC Order Prescriptions: Continued famotidine [Pepcid] 20 mg tablet 20 mg PO BID RF: 0 senna leaf Tea 180 ml PO DAILY PRN (Reason: Constipation) RF: 0 Emgality Syringe 120 mg/mL syringe 120 mg SQ MONTHLY RF: 0 cetirizine [Zyrtec] 10 mg Tablet 10 mg PO HS RF: 0 ondansetron HCl [Zofran] 4 mg Tablet 4 mg PO Q6H PRN (Reason: Nausea) RF: 0 hyoscyamine sulfate [Levsin/SL] 0.125 mg Tablet, Sublingual 0.125 mg SUBLINGUAL Q4H PRN (Reason: Abdominal Discomfort) RF: 0 norethindrone acetate [Aygestin] 5 mg Tablet 2.5 mg PO QAM RF: 0 albuterol sulfate [ProAir HFA] 90 mcg/actuation Hfa Aerosol Inhaler 2 puff INHALATION QID PRN (Reason: Shortness Of Breath Or Wheezing) RF: 0 dicyclomine 10 mg Capsule 10 - 20 mg PO Q6H PRN (Reason: Abdominal Pain) RF: 0 azelastine 0.15 % (205.5 mcg) [place],Non-Aerosol 1 - 2 spray INTRANASAL BID PRN (Reason: Congestion) RF: 0 Linzess 145 mcg Capsule 145 mcg PO BID RF: 0 Mirena 20 mcg/24 hours (5 yrs) 52 mg Intrauterine Device 20 mcg INTRAUTERINE CONTINOUS RF: 0 tretinoin [Retin-A] 0.05 % cream 1 applic TOPICAL UD RF: 0 polyethylene glycol 3350 [Miralax] 17 gram Powder In Packet 17 g PO TID Qty: 0 RF: 0 pantoprazole [Protonix] 40 mg tablet,delayed release (DR/EC) 40 mg PO DAILY RF: 0 pyridostigmine bromide [Mestinon] 60 mg tablet 30 mg PO TID RF: 0 hydrocortisone [Cortef] 10 mg tablet 15 mg PO QAM RF: 0 Discharge Orders: Discharge Order (Routine); Ordered 09/12/19 Ordered By: David Urban Admission Data Admit Date/Time: 09/10/19 11:23 Attending Provider: David Urban Admit Provider: Viridiana Sharma Primary Care Provider: Mariah Addison Other Providers: Candido Fernández Other Interventions: Discharge Summary Assessment (RN) Last Done: 09/12/19 18:37 DC Date/Time DO NOT enter until pt leaves facility: 09/12/19 19:19 Coding Level of Care Code D/C Day Management >30 mins Diagnoses Generalized abdominal pain R10.84 Enteritis K52.9 Gastroparesis K31.84 Sphincter of Oddi spasm K83.4 Jejunostomy tube in situ Z93.4 On total parenteral nutrition (TPN) Z78.9 Adrenal insufficiency E27.40 Generalized intestinal dysmotility K59.8 Urinary retention R33.9 POTS (postural orthostatic tachycardia syndrome) I49.8 Acute kidney insufficiency N28.9
--- NOTE | 2019-09-16 13:22 | Coding Query ---
CODING QUERY To promote full compliance with coding requirements relating to patient care, provider participation is requested in all cases of section crews activities clerk uncertainty. Please assist us with the question(s) below: Coding Question(s): There is documentation of Abdominal Pain with documentation on Discharge Summary of, " Generalized abdominal pain: -With nausea and vomiting appears to be secondary to gastroenteritis as seen on abdominal imaging.", and documentation on GI Consultation of, "The patient has recurrent abdominal pain. This is likely multifactorial. The patient has severe endometriosis and is scheduled for surgery for hysterectomy next month. It is possible that this could be contributing to her symptoms and may actually been etiologic in her intussusception that resolved spontaneously in June. She also has intestinal dysmotility as well that can also be contributing. ". Please specify below, in your clinical opinion regarding the most likely etiology of the Abdominal Pain. ( ) Abdominal pain most likely from Gastroenteritis ( ) Abdominal pain most likely from Endometriosis (x ) Abdominal pain is most likely Multifactorial: Please specify endometriosis and gastroenteritis ( ) Abdominal pain is most likely from other: Pleas Specify ( ) Abdominal pain is from Unknown most likely etiology Physician's Response(s): Thank you Tatum Mcgregor Principal Diagnosis: "that condition established after study, to be chiefly responsible for occasioning the admission of the patient to the hospital for care." Co-Existing Principal Diagnosis: "when two or more diagnoses equally meet the criteria for principal diagnosis as determined by the circumstances of admission, diagnostic work up, and/or therapy provided, and the Alphabetic Index, Tabular List, or another coding guideline does not provide sequencing direction, any one of the diagnoses may be sequenced first." "When the physician has documented what appears to be a current diagnosis in the body of the record, but has not included the diagnosis in the final diagnostic statement, the physician should be asked whether the diagnosis should be added." (Source [facility]oding [facility] 2 QTR90. p3-4) MALACHI
--- NOTE | 2019-09-16 13:24 | Coding Query ---
BMI To promote full compliance with coding requirements relating to patient care, physician participation is requested in all cases of auditing coder uncertainty. Please assist us with the question(s) below: Please place an X within the parenthesis (x). If other, please document: BMI 15 was documented in this record for this patient. If the BMI is significant, please check the box that provides a more specific associated diagnosis: ( ) Overweight/Obese ( ) Obesity ( ) Morbid obesity ( ) Obesity Hypoventilation Syndrome (OHS) ( ) Heathy weight, not significant (x ) Underweight/Thin ( ) Other, please specify Thank you Tatum LY
== END 2019-09-12 19:19 | disposition home or self-care (01) | DRG 392 ==
LOC: 2N 16:06 → ED 16:06 → SUATTDRO 22:55 → 2N 23:18

== ENCOUNTER 2019-10-11 13:29 | Inpatient (IN) ==
[~2019-10-11 13:29] MED LIST changes: -ASTN; -BCPILLS PO; -CETI10TA84 PO; -DICY10CA55 PO; -DOCU100T7 PO; -HYDR10TA52 PO; -ISOT1CAP PO; +LAVAGE SOLUTION 4000ML PO ONE; -LINA1CAP PO; -LVS125 UT; -ONDA4TAB46 PO; -OXYC-737 PO; -PANT40TA PO; -RANI150T2 PO; -THYR65TA11 PO; -VNTHFA/IN INH; -[UNRECOGNIZED DRUG - CODE] PO
[2019-10-11] MEDS ORDERED: HYDROmorphone INJ 1 MG/ML SYRINGE IV STA (14:39)
[2019-10-11] MEDS ORDERED: SODIUM CHLORIDE 0.9% 1000ML 1,000 ML IV ONE ×2 (14:39→15:53)
[2019-10-11] MEDS ORDERED: ONDANSETRON INJ 2 MG/ML 2 ML VIAL IV STA ×3 (14:39→19:34)
--- NOTE | 2019-10-11 14:44 | Emergency Department Note ---
Impression & Plan Sepsis, Abdominal pain, diffuse, Leukocytosis ED Provider Note Name: CHRIS TALBOT Age: 29 Sex: F Arrives Via: Walk-In Informant: Patient ED Provider: Elio Rowell MD Chief Complaint: Abdominal Pain Impression: Sepsis Diffuse Abdominal Pain Leukocytosis Medical Decision Making: Very complicated 29 yr old female with h/o multiple abdominal surgeries secondary to crohn's, gut dysmotility, pancreatitis, endometriosis, appendicitis, amongst others who just had Hysterectomy 2 weeks ago at [place]. She notes minimal symptoms over last few days though severe pain this afternoon. Arrives hypotensive, tachycardic and quite uncomfortable with diffuse TTP entire abdomen. Reportedly chills/rigors at home and felt feverish. Labs and fluids/meds ordered. Pain controlled and BP improved with initial bolus of 1 L IV fluids with improving tachycardia. WBC returned 26k at which point blood cultures ordered. After discussing pros/cons of imaging and reviewing extensive previous imaging, it was felt to proceed with CT given the fact she is septic 2 weeks post hysterectomy. Pharmacy assisted with determining optimal abx regiment given complex history and broad allergy list. Patient reevaluated multiple times and feeling improved with hydration and pain meds. She recieved 30ml/kg IV fluids with excellent improvement in BP and I will note initial lactate wnl. She had no respiratory symptoms other than secondary to pain and clear lungs on exam. I think it highly unlikely her acute sepsis with primary cc of abdominal pain is secondary to Covid-19 and thus I did not opt to isolate this patient. Once stabilized the patient was signed out to Dr Weller pending CT results. Prior Medical Record and Triage/Nursing Notes reviewed by Me Additional history obtained from extensive chart review Differential: Bowel obstructions, perforation, pancreatitis, post op infection, SMA, chronic pain, covid, sepsis, UTI amongst other pathologies. Vital Signs: reviewed and remarkable for hypotension and tachycardia Interventions: Saline lock, nss bolus 1.5L IV, dilaudid 1mg & 0.5mg IV, zofran 4mg IV, aztreonam iv, vanco iv, flagyl IV Labs:Reviewed and remarkable for Leukocytosis, normal lactate Imaging:CT abdo pelv w iv contrast pending Cardiac/Tele Monitoring: Cardiac Monitoring: An Order was placed for continuous cardiac monitoring. The monitor shows a rate of 140 with a sinus tach rhythm. Plan: Disposition:Signed out to Dr Weller Condition: Fair Blood pressure:Hypotensive Prescriptions:none PDMP: n/a History of Present Illness:29 / F arrives for evaluation of abdominal pain. Patient with long history abdominal issues including endometriosis, dysmotility, pancreatitis, requiring J tube and is currently on TPN. Due to chronic pain issues a hysterectomy was done 2 week ago in [place]. She notes she was doing well until this afternoon. 2 hours prior to arrival she started having diffuse stabbing abdominal pain. Radiates to back. Associated with nausea. Pain is so severe she feels short of breath when it gets really bad. She denies SOB/CP prior to onset of pain. She has no fevers but did say she felt chills earlier. She admits chronic headache and neck pain. No urinary changes. Does not make regular stool as she is on TPN and usually vents her J tube. No increase in J tube gases though did note some bile earlier. Denies falls nor trauma. Using Zofran without improvement. She had enteritis last month requiring hospitalization. Movement makes pain worse, rest makes mildly better. She states she has had no issues with her TPN recently. ROS: See above HPI for pertinent positives & negatives. A total of 10 systems reviewed and were otherwise negative. Past Medical History:See Below Past Surgical History:See Below Family History:See Below Social History:See Below Home Medications:See Below Allergies:See Below Vitals:Blood Pressure: 72/48, Pulse 145, RR 30, T 36.3C, O2 100% on RA Physical Exam: GENERAL: Patient is very uncomfortably appearing and in severe distress. Dehydrated appearing EYES: No scleral icterus, unremarkable pupils. ENT: Mucous membranes dry, no nasal congestion. NECK: No masses appreciated, nomeningismus, trachea is midline. RESPIRATORY: No dyspnea. Clear to auscultation and equal bilaterally. No wheeze, no rhonchi. CHEST: Mediport left chest accessed and no erythema CARDIOVASCULAR: Tachy.No murmurs, rubs, gallops appreciated. GASTROINTESTINAL: Diffuse TTP J tube in place, no distention, hypoactive bowel sounds BACK: No midline tenderness, no CVA tenderness EXTREMITIES: Normal motion all extremities, no cyanosis, no edema. NEUROLOGIC: Alert and oriented, no acute motor or sensory deficits, no focal weakness, cranial nerves grossly intact. SKIN: No rash, no jaundice, no diaphoresis. PSYCH: Appropriate GCS: 15 ED Course: Times/Reassessments: Multiple, improving pain and vital signs Critical Care: I have personally spent 35 minutes of critical care time in the direct management of this patient. Septic patient arrived hypotensive and tachycardic requiring fluid resuscitation. This was a life/limb threatening event. This 35 minutes is in excess of all separately billable procedures. Elio Rowell MD Past Med/Surg History Social History Preferred Language: Maldivian Communication Ability: Effective Visual Impairment: No Limitations Hearing Ability: Normal Sprayer Operator Required: No Beliefs That Will Affect Care: None marital status: single Current Living Situation: Parent current occupational status: unemployed Feels Safe at Home: Yes Smoking Status: Never smoker Second Hand Exposure: No ; Hx Alcohol Use: No Hx Substance Use: No Allergies Allergies Allergy/AdvReac Type Severity Reaction Status Date / Time amoxicillin Allergy Intermediate RASH Verified 10/11/19 15:02 Bactrim Allergy Intermediate RASH Verified 08/13/17 12:16 cefazolin Allergy Intermediate rash Verified 10/11/19 15:02 Cephalosporins Allergy Intermediate HIVES Verified 10/11/19 15:02 clavulanic acid Allergy Intermediate HIVES Verified 10/11/19 15:02 Penicillins Allergy Intermediate HIVES Verified 10/11/19 15:02 prochlorperazine Allergy Intermediate HIVES Verified 10/11/19 15:02 promethazine Allergy Intermediate hives, Verified 10/11/19 15:02 throat swelling sulfamethoxazole Allergy Intermediate RASH Verified 10/11/19 15:02 sumatriptan Allergy Intermediate RASH Verified 10/11/19 15:02 trimethoprim Allergy Intermediate RASH Verified 10/11/19 15:02 metoclopramide AdvReac Severe anxiety/ Verified 10/11/19 15:02 jittery diphenhydramine AdvReac Intermediate Tachycardia, Verified 10/11/19 15:02 Severe Anxiety WITH IV ONLY erythromycin base AdvReac Intermediate GI SYMPTOMS Verified 10/11/19 15:02 citalopram [From Celexa] AdvReac Unknown Verified 10/11/19 15:02 MULTIVITAMIN Allergy Intermediate Unknown Uncoded 10/11/19 15:02 Home Meds Home Medications Medication Instructions Recorded Confirmed Linzess 145 mcg PO BID 03/07/18 10/11/19 albuterol sulfate [ProAir HFA] 2 puff INHALATION QID PRN 03/07/18 10/11/19 azelastine 1 - 2 spray INTRANASAL BID PRN 03/07/18 10/11/19 cetirizine [Zyrtec] 10 mg PO HS 03/07/18 10/11/19 dicyclomine 10 - 20 mg PO Q6H PRN 03/07/18 10/11/19 hyoscyamine sulfate [Levsin/SL] 0.125 mg SUBLINGUAL Q4H PRN 03/07/18 10/11/19 ondansetron HCl [Zofran] 4 mg PO Q6H PRN 03/07/18 10/11/19 senna leaf 180 ml PO DAILY PRN 11/19/18 10/11/19 famotidine 20 mg tablet 20 mg PO BID tab 05/26/19 10/11/19 tretinoin [Retin-A] 1 applic TOPICAL UD 07/12/19 10/11/19 Emgality Syringe 120 mg SQ MONTHLY 08/22/19 10/11/19 hydrocortisone [Cortef] 15 mg PO QAM 09/08/19 10/11/19 pantoprazole [Protonix] 40 mg PO QAM 09/08/19 10/11/19 pyridostigmine bromide [Mestinon] 30 mg PO TID 09/08/19 10/11/19 tramadol 50 mg PO Q4H PRN 10/11/19 10/11/19 trimethobenzamide 300 mg PO UD PRN 10/11/19 10/11/19 Previous Rx's Medication Instructions Recorded polyethylene glycol 3350 [Miralax] 17 g PO TID #0 ea 07/16/19 Results & Data (ED) Vital Signs Vital Signs - 24 hr 10/11/19 13:33 10/11/19 15:10 10/11/19 15:45 Temperature 36.3 C L Temperature Source Oral Pulse Rate 145 H Pulse Rate [Finger] 130 H 118 H Respiratory Rate 30 H 16 16 Respiratory Effort / Characteristics Non-Labored Respiratory Depth Normal Blood Pressure 72/48 L Blood Pressure [Right Arm] 99/68 L 113/63 Blood Pressure Mean 56 Blood Pressure Mean [Right Arm] 78 79 Pulse Oximetry 100 99 95 Oxygen Delivery Method Room Air Sepsis Recent Fever Within 48 Hours No Sepsis New/Unexplained Change in Mental Status No Sepsis Action Taken by Nursing No Action Required 10/11/19 17:09 10/11/19 17:32 Temperature Temperature Source Pulse Rate Pulse Rate [Finger] 130 H Respiratory Rate 16 Respiratory Effort / Characteristics Non-Labored Respiratory Depth Normal Blood Pressure Blood Pressure [Right Arm] 103/63 Blood Pressure Mean Blood Pressure Mean [Right Arm] 76 Pulse Oximetry 100 Oxygen Delivery Method Room Air Room Air Sepsis Recent Fever Within 48 Hours Sepsis New/Unexplained Change in Mental Status Sepsis Action Taken by Nursing Laboratory Data Result diagrams: 10/11/19 15:06 10/11/19 15:06 Lab Results 10/11/19 10/11/19 10/11/19 Range/Units 15:06 15:06 15:06 WBC 26.49 H D (4.8-10.8) K/uL RBC 3.77 L (4.2-5.4) M/uL Hgb 12.3 (12.0-16.0) g/dL Hct 36.0 L (37-47) % MCV 95.5 (80-100) fL MCH 32.6 (25-34) pg MCHC 34.2 (32-36) g/dL RDW Std Deviation 40.0 (36.4-46.3) fL RDW Coeff of Tim 11.6 (11.5-14.5) % Plt Count 268 (130-400) K/uL MPV 10.4 (7.4-10.4) fL Immature Gran % (Auto) 0.4 % Neut % (Auto) 94.4 % Lymph % (Auto) 1.2 % Leslie % (Auto) 3.9 % Eos % (Auto) 0.0 % Baso % (Auto) 0.1 % Immature Gran # (Auto) 0.11 H (0.00-0.02) K/uL Neut # (Auto) 24.99 H (1.4-6.5) K/uL Lymph # (Auto) 0.33 L (1.2-3.4) K/uL Leslie # (Auto) 1.02 H (0.11-0.59) K/uL Eos # (Auto) 0.01 (0-0.5) K/uL Baso # (Auto) 0.03 (0-0.2) K/uL Sodium 138 (136-145) mmol/L Potassium 3.4 L (3.5-5.1) mmol/L Chloride 107 (98-107) mmol/L Carbon Dioxide 23 (21-32) mmol/L Anion Gap 8.0 (3-11) BUN 11 (7-18) mg/dl Creatinine 0.78 (0.6-1.2) mg/dl Est Cr Clr Drug Dosing Not Reportable Est GFR ( Amer) 120.8 Est GFR (Non-Af Amer) 104.2 BUN/Creatinine Ratio 14.5 (10-20) Glucose 109 H (70-99) mg/dl Lactate 1.1 (0.4-2.0) mmol/L Calcium 9.2 (8.5-10.1) mg/dl Magnesium 1.7 L (1.8-2.4) mg/dl Total Bilirubin 0.5 (0.2-1) mg/dl Direct Bilirubin 0.1 (0-0.2) mg/dl AST 18 (15-37) U/L ALT 26 (12-78) U/L Alkaline Phosphatase 45 (45-117) U/L Total Protein 6.8 (6.4-8.2) gm/dl Albumin 4.1 (3.4-5.0) gm/dl Lipase 110 (73-393) U/L Administered Medications Hydromorphone HCl (Dilaudid) 0.5 mg IV Q15M PRN PRN Reason: Pain Stop: 10/25/19 15:59 Last Admin: 10/11/19 17:37 Dose: 0.5 mg Documented by: [id number] Sodium Chloride (Nss 1000ml) 1,000 mls @ 125 mls/hr IV .Q8H EMERALD Stop: 11/10/19 15:59 Last Admin: 10/11/19 18:34 Dose: 125 mls/hr Documented by: [id number] Ioversol (Optiray 320 100ml) 94 ml IV ONCE PRN PRN Reason: Interaction Checking Stop: 10/15/19 16:57 Last Admin: 10/11/19 16:59 Dose: 94 ml Documented by: [id number] Discontinued Medications Hydromorphone HCl (Dilaudid) 1 mg IV NOW STA Stop: 10/11/19 14:40 Last Admin: 10/11/19 15:10 Dose: 1 mg Documented by: [id number] Hydromorphone HCl (Dilaudid) 0.5 mg IV NOW STA Stop: 10/11/19 15:42 Last Admin: 10/11/19 15:44 Dose: 0.5 mg Documented by: [id number] Sodium Chloride (Nss 1000ml) 1,000 mls @ 999 mls/hr IV .Q1H1M ONE Stop: 10/11/19 15:39 Last Infusion: 10/11/19 16:10 Dose: 0 mls/hr Documented by: [id number] Admin: 10/11/19 15:10 Dose: 999 mls/hr Documented by: [id number] Sodium Chloride (Nss 1000ml) 1,000 mls @ 999 mls/hr IV .Q1H1M ONE Stop: 10/11/19 16:53 Last Infusion: 10/11/19 17:18 Dose: 0 mls/hr Documented by: [id number] Admin: 10/11/19 16:10 Dose: 999 mls/hr Documented by: [id number] Aztreonam 2,000 mg/ Dextrose 110 mls @ 110 mls/hr IV NOW STA Stop: 10/11/19 16:58 Last Infusion: 10/11/19 18:34 Dose: 0 mls/hr Documented by: [id number] Admin: 10/11/19 17:34 Dose: 110 mls/hr Documented by: [id number] Metronidazole (Flagyl) 500 mg in 100 mls @ 100 mls/hr IV NOW STA Stop: 10/11/19 16:58 Last Infusion: 10/11/19 17:18 Dose: 0 mls/hr Documented by: [id number] Admin: 10/11/19 16:25 Dose: 100 mls/hr Documented by: [id number] Vancomycin HCl 1,000 mg/ (Sodium Chloride) 270 mls @ 125 mls/hr IV NOW STA Stop: 10/11/19 18:11 Last Admin: 10/11/19 17:36 Dose: 125 mls/hr Documented by: [id number] Ondansetron HCl (Zofran) 4 mg IV NOW STA Stop: 10/11/19 14:40 Last Admin: 10/11/19 15:10 Dose: 4 mg Documented by: [id number] Ondansetron HCl (Zofran) 4 mg IV NOW STA Stop: 10/11/19 17:43 Last Admin: 10/11/19 17:48 Dose: 4 mg Documented by: [id number] Ondansetron HCl (Zofran) 4 mg IV NOW STA Stop: 10/11/19 19:35 Last Admin: 10/11/19 19:49 Dose: Not Given Documented by: [id number] Discharge Plan Visit Data Chief Complaint: Shortness of Breath/Dyspnea Stated Complaint: NAUSEA, SOB ED Provider: Elio Rowell Discharge Problem: Sepsis, Abdominal pain, diffuse, Leukocytosis Forms Stand Alone Forms: [facility] [employer] Prescriptions Prescriptions: No Action famotidine [Pepcid] 20 mg tablet 20 mg PO BID RF: 0 senna leaf Tea 180 ml PO DAILY PRN (Reason: Constipation) RF: 0 Emgality Syringe 120 mg/mL syringe 120 mg SQ MONTHLY RF: 0 cetirizine [Zyrtec] 10 mg Tablet 10 mg PO HS RF: 0 ondansetron HCl [Zofran] 4 mg Tablet 4 mg PO Q6H PRN (Reason: Nausea) RF: 0 hyoscyamine sulfate [Levsin/SL] 0.125 mg Tablet, Sublingual 0.125 mg SUBLINGUAL Q4H PRN (Reason: Abdominal Discomfort) RF: 0 albuterol sulfate [ProAir HFA] 90 mcg/actuation Hfa Aerosol Inhaler 2 puff INHALATION QID PRN (Reason: Shortness Of Breath Or Wheezing) RF: 0 dicyclomine 10 mg Capsule 10 - 20 mg PO Q6H PRN (Reason: Abdominal Pain) RF: 0 azelastine 0.15 % (205.5 mcg) Hamlin,Non-Aerosol 1 - 2 spray INTRANASAL BID PRN (Reason: Congestion) RF: 0 Linzess 145 mcg Capsule 145 mcg PO BID RF: 0 tretinoin [Retin-A] 0.05 % cream 1 applic TOPICAL UD RF: 0 polyethylene glycol 3350 [Miralax] 17 gram Powder In Packet 17 g PO TID Qty: 0 RF: 0 pantoprazole [Protonix] 40 mg tablet,delayed release (DR/EC) 40 mg PO QAM RF: 0 pyridostigmine bromide [Mestinon] 60 mg tablet 30 mg PO TID RF: 0 hydrocortisone [Cortef] 10 mg tablet 15 mg PO QAM RF: 0 tramadol 50 mg tablet 50 mg PO Q4H PRN (Reason: Pain) RF: 0 trimethobenzamide 300 mg capsule 300 mg PO UD PRN (Reason: Nausea) RF: 0 Referrals Referrals: Mariah Addison DO [Primary Care Provider] - Discharge Problem: Sepsis Qualifiers: Sepsis type: sepsis due to unspecified organism Sepsis acute organ dysfunction status: without acute organ dysfunction Qualified Code(s): A41.9 - Sepsis, unspecified organism Leukocytosis Qualifiers: Leukocytosis type: other Qualified Code(s): D72.828 - Other elevated white blood cell count
--- NOTE | 2019-10-11 15:29 | XRay Report ---
XR chest 1V portable, XR KUB/Abdomen 1 view HISTORY: 29 years-old Female Shortness of breath with abdominal pain acute shortness of breath with generalized abdominal pain COMPARISON: KUB 10/04/2019, CT abdomen and pelvis and acute abdominal series radiographs 09/08/2019 TECHNIQUE: AP view of the chest with KUB radiograph FINDINGS: CHEST: Stable positioning of left subclavian [id number] catheter, distal tip terminating in the expected location of the inferior SVC. Cardiomediastinal and hilar silhouettes are within normal limits. No pn eumothorax, pleural effusion, airspace consolidation or overt pulmonary edema. Bones of the chest alhaji ear grossly intact. KUB: Cholecystectomy. Gastrostomy tube is noted with distal tip terminating in the duodenum. Surgical clip s are again noted projecting over the upper abdomen. Bowel gas pattern is nonobstructive. No pneumato sis or pneumoperitoneum. No urolith. Mild fecal retention. Surgical clips project over the central pe lvis. IMPRESSION: 1. No acute processes of the chest. 2. Nonobstructive bowel gas pattern. 3. Gastrojejunostomy tube again terminates within the duodenum. ACT 112: Negative or not required by law. The above report was generated using voice recognition software. It may contain grammatical, syntax o r spelling errors. Electronically signed by: Danny Sow M.D. 10/11/2019 3:28 PM
[2019-10-11] MEDS ORDERED: HYDROmorphone INJ 0.5 MG/0.5 ML SYR IV STA (15:41)
[2019-10-11 15:42] LABS: Hemoglobin 12.3 g/dL (12.0-16.0); Mean Corpuscular Hemoglobin 32.6 pg (25-34); Mean Corpuscular Hgb Conc 34.2 g/dL (32-36); Mean Corpuscular Volume 95.5 fL (80-100); Mean Platelet Volume 10.4 fL (7.4-10.4); Platelet Count 268 K/uL (130-400); RDW Coefficient of Variation 11.6 % (11.5-14.5); Red Blood Count 3.77 M/uL (4.2-5.4); White Blood Count 26.49 K/uL (4.8-10.8)
[2019-10-11 15:46] LABS: Basophils # (auto) 0.03 K/uL (0-0.2); Basophils % (auto) 0.1 %; Eosinophils # (auto) 0.01 K/uL (0-0.5); Immature Granulocytes # (auto) 0.11 K/uL (0.00-0.02); Immature Granulocytes % (auto) 0.4 %; Lymphocytes # (auto) 0.33 K/uL (1.2-3.4); Lymphocytes % (auto) 1.2 %; Monocytes # (auto) 1.02 K/uL (0.11-0.59); Monocytes % (auto) 3.9 %; Neutrophils # (auto) 24.99 K/uL (1.4-6.5); Neutrophils % (auto) 94.4 %
[2019-10-11 15:56] LABS: Alanine Aminotransferase 26 U/L (12-78); Albumin Level 4.1 gm/dl (3.4-5.0); Aspartate Aminotransferase 18 U/L (15-37); BUN Creatinine Ratio 14.5 (10-20); Bilirubin Direct 0.1 mg/dl (0-0.2); Blood Urea Nitrogen 11 mg/dl (7-18); Calcium 9.2 mg/dl (8.5-10.1); Carbon Dioxide 23 mmol/L (21-32); Chloride 107 mmol/L (98-107); Est GFR (African American) 120.8; Est GFR (Non-African American) 104.2; Glucose 109 mg/dl (70-99); Lipase 110 U/L (73-393); Magnesium 1.7 mg/dl (1.8-2.4); Potassium 3.4 mmol/L (3.5-5.1); Sodium 138 mmol/L (136-145)
[2019-10-11 15:59] LABS: Alkaline Phosphatase 45 U/L (45-117); Bilirubin,Total 0.5 mg/dl (0.2-1); Total Protein 6.8 gm/dl (6.4-8.2)
[2019-10-11] MEDS ORDERED: metroNIDAZOLE 500 MG/100 ML BAG IV STA (15:59)
[2019-10-11] MEDS ORDERED: AZTREONAM 2,000 MG in DEXTROSE 5% 100 ML IV STA (15:59)
[2019-10-11] MEDS ORDERED: SODIUM CHLORIDE 0.9% 1000ML 1,000 ML IV SCH (16:00)
[2019-10-11] MEDS ORDERED: HYDROmorphone INJ 0.5 MG/0.5 ML SYR IV PRN (16:00)
[2019-10-11] MEDS ORDERED: VANCOMYCIN HCL 1,000 MG in SODIUM CHLORIDE 0.9% 250 ML IV STA (16:02)
--- NOTE | 2019-10-11 16:15 | Electrocardiogram Report ---
Test Reason : Blood Pressure : / mmHG Vent. Rate : 110 BPM Atrial Rate : 110 BPM P-R Int : 152 ms QRS Dur : 086 ms QT Int : 338 ms P-R-T Axes : 057 045 001 degrees QTc Int : 457 ms Sinus tachycardia Possible Left atrial enlargement Borderline ECG When compared with ECG of 24-JUN-2019 18:59, Nonspecific T wave abnormality now evident in Inferior leads Confirmed by Fausto Jones ([id number]) on 10/11/2019 4:15:22 PM Referred By: REFERRED SELF Confirmed By:Fausto Jones
[2019-10-11] MEDS ORDERED: IOVERSOL 100ml IV PRN (16:58)
--- NOTE | 2019-10-11 17:29 | CT Scan Report ---
ABDOMEN AND PELVIS CT WITH IV CONTRAST CT DOSE: 260.10 mGy.cm HISTORY: diffuse abdominal pain, wbc 26, recent hysterectomy TECHNIQUE: Multiaxial CT images of the abdomen and pelvis were performed following the use of intrave nous contrast. A dose lowering technique was utilized adhering to the principles of ALARA. COMPARISON STUDY: Abdomen and pelvis CT 09/08/2019. FINDINGS: The lung bases are clear. No pneumoperitoneum. No pneumatosis. No fractures within the visu alized osseous structures. The liver, spleen, adrenal glands, pancreas, and kidneys are unremarkable. No hydronephrosis. A gastrostomy tube terminates in the second portion of the duodenum. No retroperi toneal lymphadenopathy. Normal caliber abdominal aorta. Mild thickening at the gastric antrum remains unchanged. The bladder is unremarkable. The uterus appears surgically absent. Thickening within the residual vaginal wall and a trace amount of fluid within the vagina. There are few small cysts within the normal sized ovaries. No pelvic lymphadenopathy. Surgical clips at the patient's of the cecum quiroga ggestive of a prior appendectomy. Prior cholecystectomy. No bowel wall thickening or obstruction. IMPRESSION: 1. Status post hysterectomy. Mild thickening of the vaginal morris with a trace amount of fluid within the vagina. This is nonspecific and could be due to the recent postoperative change. An infectious p rocess cannot be excluded on the basis of imaging alone. 2. Gastrostomy tube terminates in the second portion of duodenum. 3. Mild thickening of the gastric antrum, unchanged. 4. Prior cholecystectomy and appendectomy. ACT 112: Negative or not required by law. Electronically signed by: Victor Hugo Snowden M.D. 10/11/2019 5:28 PM
--- NOTE | 2019-10-11 18:26 | History & Physical Report ---
Date of Service October 11, 2019 Assessment & Plan (1) Sepsis: Concern for bacteremia and sepsis given rise in WBC after port was accessed and sudden worsening of symptoms occurred after this. Associated tachycardia and hypotension. NSS 2L given in ER. Additional LR 1L bolus and starting on hydrocortisone hopefully should help out with this. qSOFA 1 Continue Vancomycin, Aztreonam and metronidazole due to concern for line infection pending blood cultures (2) Intractable nausea and vomiting: Acute on chronic. ?worse due to bacteremia as above. Unfortunately limited options for this given allergies and side effects listed. Will continue ondansetron 4mg q4h PRN. Asked patient to have her mother bring in her Tigan. (3) Abdominal pain, diffuse: Mainly lower abdominal which she reports is more unusual for her and most likely related to post operative inflammation Acetaminophen EMERALD Toradol 1st line PRN Dilaudid if above not successful but discussed with patient to limit use of this as likely will prolong her recovery. (4) Jejunostomy tube in situ: Ok for patient to use PO meds via J-tube as long as they can be crushed (5) On total parenteral nutrition (TPN): Given concern for bacteremia will hold off further nutrition pending blood cultures being negative. 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 Now with post operative ileus as a complication. Will continue her usual regimen with: senna tea (patient to have her mother to bring this in) Linzess BID Miralax QID Mestinon Acutely will help with Golyteley bowel prep through her J-tube which has worked for her in the past. (7) Adrenal insufficiency: Start stress dose steroids given ongoing hypotension and tachycardia and chronic hydrocortisone use. Hydrocortisone 50mg IV q6h for 1 day then taper to 25mg q6h for 1 day. Preliminary will switch to her usual PO dosing after this. (8) POTS (postural orthostatic tachycardia syndrome): Noted prior diagnosis of this which could explain her current heart rate. (9) Electrolyte abnormality: Replace Mg, K and PO as needed (10) Venous thromboembolism (VTE) prophylaxis not indicated: Given young age and not on OCP, low likelihood of PE therefore will defer any DVT prophylaxis currently Admission and Anticipated Discharge Date Admission Date: 10/11/2019 History of Present Illness Chief Complaint: Intractable abdominal pain, nausea and vomiting Primary Care Provider: DO Pilar Borrego is a 29 year old female with multiple chronic medical issues mainly revolving around her generalized intestinal dysmotility who presents to the ER with intractable nausea, vomiting and abdominal pain. She notes having increased dysmotility issues since her hysterectomy 2 weeks ago for which she has been increasing her MiraLAX dosing and outpatient enemas without a successful bowel movement in the last 3 days (at that time is was hard and painful). She notes her GI specialist at [facility] was planning on a colonoscopy for fecal evacuation sometime next week. She also notes increased lower abdominal pain since this operation which has not been getting worse up until today but also not improving, more severe when she has an enema. More acutely today she had her port accessed as per routine for her chronic TPN and 2 hours after this felt suddenly nauseous and has not stopped vomiting since then with sudden increase in her abdominal pain. Associated chills and shaking. Current pain in lower abdomen 4/10 after toradol and morphine givne in ER. Severeity 9/10 on arrival in ER. She notes she always has some nausea but the intractable vomiting she can usually control with her home medications. She denies any vaginal discharge since the operation. She has been taking the occasional tramadol for her lower abdominal pain but limiting use as she correlates opaites with worsening of her dysmotility issues. Pain is different on this occasional as a lot more severe. Intense abdominal pain and presyncope when doing this. Today having chills and shaking in addition. Currently lower abdominal pain 4/10, 9/10 when she came in, slowly progressing since the operation. Nausea and vomiting always has nausea but contanstant today. She denies shortness of breath, chest pain, cough. No change in taste or smell. Per her usual bowel regimen: Normally takes miralax 1-2 a day. Since the operation advised to take 3-4/day. Last took this yesterday. Fleet enemas usually once/day. Since surgery advised to use 2-3 enemas fleet enemas a day, causing a lot of pain. Mestinon dosing not changed. Water enema once a day (for a few months) Senna tea. Usual nutrition is with TPN but she does intermittently eat some foods. Allergies Allergy/AdvReac Type Severity Reaction Status Date / Time amoxicillin Allergy Intermediate RASH Verified 10/11/19 15:02 Bactrim Allergy Intermediate RASH Verified 08/13/17 12:16 cefazolin Allergy Intermediate rash Verified 10/11/19 15:02 Cephalosporins Allergy Intermediate HIVES Verified 10/11/19 15:02 clavulanic acid Allergy Intermediate HIVES Verified 10/11/19 15:02 Penicillins Allergy Intermediate HIVES Verified 10/11/19 15:02 prochlorperazine Allergy Intermediate HIVES Verified 10/11/19 15:02 promethazine Allergy Intermediate hives, Verified 10/11/19 15:02 throat swelling sulfamethoxazole Allergy Intermediate RASH Verified 10/11/19 15:02 sumatriptan Allergy Intermediate RASH Verified 10/11/19 15:02 trimethoprim Allergy Intermediate RASH Verified 10/11/19 15:02 metoclopramide AdvReac Severe anxiety/ Verified 10/11/19 15:02 jittery diphenhydramine AdvReac Intermediate Tachycardia, Verified 10/11/19 15:02 Severe Anxiety WITH IV ONLY erythromycin base AdvReac Intermediate GI SYMPTOMS Verified 10/11/19 15:02 citalopram [From Celexa] AdvReac Unknown Verified 10/11/19 15:02 MULTIVITAMIN Allergy Intermediate Unknown Uncoded 10/11/19 15:02 Home Medications Home Medications Medication Instructions Recorded Confirmed Type Linzess 145 mcg PO BID 03/07/18 10/11/19 History albuterol sulfate [ProAir HFA] 2 puff INHALATION QID PRN 03/07/18 10/11/19 History azelastine 1 - 2 spray INTRANASAL BID PRN 03/07/18 10/11/19 History cetirizine [Zyrtec] 10 mg PO HS 03/07/18 10/11/19 History dicyclomine 10 - 20 mg PO Q6H PRN 03/07/18 10/11/19 History hyoscyamine sulfate [Levsin/SL] 0.125 mg SUBLINGUAL Q4H PRN 03/07/18 10/11/19 History ondansetron HCl [Zofran] 4 mg PO Q6H PRN 03/07/18 10/11/19 History senna leaf 180 ml PO DAILY PRN 11/19/18 10/11/19 History famotidine 20 mg tablet 20 mg PO BID tab 05/26/19 10/11/19 History tretinoin [Retin-A] 1 applic TOPICAL UD 07/12/19 10/11/19 History polyethylene glycol 3350 [Miralax] 17 g PO TID #0 ea 07/16/19 10/11/19 Rx Emgality Syringe 120 mg SQ MONTHLY 08/22/19 10/11/19 History hydrocortisone [Cortef] 15 mg PO QAM 09/08/19 10/11/19 History pantoprazole [Protonix] 40 mg PO QAM 09/08/19 10/11/19 History pyridostigmine bromide [Mestinon] 30 mg PO TID 09/08/19 10/11/19 History tramadol 50 mg PO Q4H PRN 10/11/19 10/11/19 History trimethobenzamide 300 mg PO UD PRN 10/11/19 10/11/19 History Past Med/Surg History Social History Preferred Language: Vincentian Communication Ability: Effective Visual Impairment: No Limitations Hearing Ability: Normal Soot Blower Required: No Beliefs That Will Affect Care: None marital status: single Current Living Situation: Family current occupational status: unemployed Other Information That Helps Us Care for You: No Feels Safe at Home: Yes Safety Concerns: Feels Safe At This Time Smoking Status: Never smoker Second Hand Exposure: No ; Hx Alcohol Use: No Hx Substance Use: No Review of Systems Review of Systems: All systems reviewed & are unremarkable except as noted in HPI & below Physical Exam Constitutional: well developed, + acute distress and + ill appearing; + not well nourished Eyes: PERRL, conjunctivae normal, anicteric sclerae ENMT: external ear and nose normal, oropharynx normal Neck: trachea midline, no thyromegaly Respiratory: normal respiratory effort, lungs clear to auscultation Cardiovascular: Rate/Rhythm: regular rhythm and + tachycardic Heart Sounds: no murmur Vessels: no JVD Extremities: normal capillary refill; no calf tenderness and no pedal edema Gastrointestinal (Abdomen): Inspection/Auscultation: + hypoactive bowel sounds Percussion/Palpation: + abdomen tender (generalized but worse suprapubically) and abdomen soft; no guarding and abdomen not rigid Musculoskeletal: no cyanosis or clubbing, extremities motor strength 5/5 Skin: no rashes, warm and dry (left port site c/d/i without surrounding cellu litis) Neurologic: moves all extremities and awake; no focal motor deficits and not confused Psychiatric: Orientation: alert and oriented x 3 Affect: + flat affect Genitourinary: no CVA tenderness Results & Data Results & Data ([facility]) Vital Signs (Past 12 Hours) Vital Signs Temp Pulse Pulse Resp BP BP Pulse Ox 10/11/19 17:32 130 H 16 103/63 100 10/11/19 15:45 118 H 16 113/63 95 10/11/19 15:10 130 H 16 99/68 L 99 10/11/19 13:33 36.3 C L 145 H 30 H 72/48 L 100 Diagnostic Findings ABDOMEN AND PELVIS CT WITH IV CONTRAST IMPRESSION: 1. Status post hysterectomy. Mild thickening of the vaginal morris with a trace amount of fluid within the vagina. This is nonspecific and could be due to the recent postoperative change. An infectious process cannot be excluded on the basis of imaging alone. 2. Gastrostomy tube terminates in the second portion of duodenum. 3. Mild thickening of the gastric antrum, unchanged. 4. Prior cholecystectomy and appendectomy. XR chest 1V portable, XR KUB/Abdomen 1 view IMPRESSION: 1. No acute processes of the chest. 2. Nonobstructive bowel gas pattern. 3. Gastrojejunostomy tube again terminates within the duodenum. ECG Indication: tachycardia Rate (beats per minute): 110 Rhythm: sinus tachycardia Findings: no acute ischemic change Comparison ECG Date: from (10/11/2019) Change: the following changes noted (mild TW changes in inferior leads) Code Status & VTE Plan Code Status Full VTE Prophylaxis Plan VTE Prophylaxis will be ordered: No Reason for no VTE drug order: Treatment not indicated Reason for no VTE mechanical prophylaxis: Treatment not indicated PG Care Time/CCT Total # of Minutes Spent Total Time Spent with Patient: Total time spent is greater than 50% in coordination of care (as documented) at patient's floor/unit and/or counseling patient: Coding Level of Care Code 14935 Initial Inpt Care Lvl 3 Diagnoses Sepsis A41.9 Sepsis acute organ dysfunction status: without acute organ dysfunction Sepsis type: sepsis due to unspecified organism Intractable nausea and vomiting R11.2 Abdominal pain, diffuse R10.84 Jejunostomy tube in situ Z93.4 On total parenteral nutrition (TPN) Z78.9 Generalized intestinal dysmotility K59.8 Adrenal insufficiency E27.40 POTS (postural orthostatic tachycardia syndrome) I49.8 Electrolyte abnormality E87.8 Venous thromboembolism (VTE) prophylaxis not indicated (1) Sepsis Sepsis acute organ dysfunction status: without acute organ dysfunction Sepsis type: sepsis due to unspecified organism Qualified Code(s): A41.9 - Sepsis, unspecified organism
--- NOTE | 2019-10-11 18:28 | Emergency Department Note ---
ED Visit Note The patient was signed out to me awaiting a CT scan. The CT scan did not show any clear or concerning abnormalities. There was some fluid noted in the vaginal region. This is likely postsurgical. The patient was given additional IV Zofran while I was monitoring the patient. I did speak with Dr. Romero about the patient. He will see the patient for inpatient evaluation and care. Diagnosis: Nausea/vomiting, hypotension, tachycardia, volume depletion, leukocytosis, possible bacteremia, abdominal pain, diffuse .
[2019-10-11] MEDS ORDERED: VANCOMYCIN CONSULT ACTIVE PRN (20:30)
[2019-10-11] MEDS ORDERED: TRAMADOL HCL 50 MG TABLET PO PRN (20:30)
[2019-10-11] MEDS ORDERED: HYOSCYAMINE SULFATE 0.125 MG TAB SL PRN (20:30)
[2019-10-11] MEDS ORDERED: LACTATED RINGER'S 1,000 ML IV ONE (20:33)
[2019-10-11] MEDS ORDERED: FAMOTIDINE 20 MG TAB JT SCH (21:00)
[2019-10-11] MEDS: KETOROLAC TROMETHAMINE 15 MG/ML VIAL IV PRN (21:39)
[2019-10-11] MEDS: HYDROCORTISONE SOD 50 MG in SYRINGE 0 ML IV SCH (21:39)
[2019-10-11] MEDS: MAGNESIUM SULFATE / D5W 1 GM/100 ML BAG IV SCH ×2 (21:40→23:43)
[2019-10-11] MEDS: FAMOTIDINE 20 MG in SYRINGE 3 ML IV SCH (21:40)
[2019-10-11] MEDS: ONDANSETRON INJ 2 MG/ML 2 ML VIAL IV PRN (21:41)
[2019-10-11] MEDS ORDERED: ACETAMINOPHEN SOLN 650 MG/20.3 ML UDC PEG SCH (21:45)
[2019-10-11] MEDS: [UNRECOGNIZED DRUG - OTHER] SCH (22:07)
[2019-10-11] MEDS: AZELASTINE~ORDER AWAITING ACTION SCH (22:08)
[2019-10-11] MEDS: POTASSIUM CHLORIDE 40 MEQ in SODIUM CHLORIDE 0.9% 1000ML 1,000 ML IV SCH (22:10)
--- NOTE | 2019-10-11 22:38 | Pharmacy Report ---
Pharmacy Abx Initial Consult - Date of Service October 11, 2019 - Pharmacy Dosing Scope Date of Consult: 10/11/19 Consultation requested by: Dr. Romero Pharmacy is consulted to continue IV Vancomycin dosing therapy, order appropriate labs and adjust drug dose/frequency. - Subjective The patient is a 29 year old F admitted on 10/11/19 18:24 known to us admitted today with possible bacteremia/sepsis from what might be a suspected line infection. She presents with pain and fever/chills that she claims are quite different then how she has felt in the past. Dr. Romero continues all broad spectrum antibiotics that were begun in the ED, including pharmacy dosed Vancomycin, Flagyl and Aztreonam. - Objective Height: 5 ft 6 in Weight: 49.89 kg Vital Signs (Past 12hrs): Vital Signs Temp Pulse Pulse Resp BP BP Pulse Ox 10/11/19 22:06 127 H 10/11/19 21:16 37 C 122 H 20 90/60 L 99 10/11/19 19:00 138 H 20 90/53 L 96 10/11/19 17:32 130 H 16 103/63 100 10/11/19 15:45 118 H 16 113/63 95 10/11/19 15:10 130 H 16 99/68 L 99 10/11/19 13:33 36.3 C L 145 H 30 H 72/48 L 100 Lab Results (24hrs): Laboratory Tests (24 Hours) 10/11/19 10/11/19 15:06 15:06 WBC 26.49 H D Neut # (Auto) 24.99 H Creatinine 0.78 Est Cr Clr Drug Dosing Not Reportable Micro Results: 10/11/19 16:20 Aerobic Blood Culture - Pending Blood Anaerobic Blood Culture - Pending 10/11/19 16:14 Aerobic Blood Culture - Pending Blood Anaerobic Blood Culture - Pending - Risk Factors for Resistance * Hospitalization for 48 hours or more within the past 90 days * Immunocompromised (chronic steroid) Hydrocortisone - Assessment & Plan Assessment 29 year old F with possible Sepsis Plan Vancomycin IV * Estimated PK Parameters: Vd [] L/kg, Prudencio [] hr-1, t1/2 [] hr see below * Loading dose: 1000 mg (~20mg/kg) * Maintenance dose: 750 mg IV (15mg/kg) every 6 hours * Goal trough level : 15 to 20mcg/mL * Trough/Random level ordered prior to 2000 dose on 10/12/19 * A less than traditional dose was ordered based on 2 past admissions and her trough level returning at 10mcg/ml or less on both occasions. Pharmacy will continue to follow and will adjust dose/frequency as necessary. Thank you.
[2019-10-11] MEDS: LORazepam 0.5 MG/1 ML VIAL IV PRN (23:32)
[2019-10-11] MEDS: LINACLOTIDE 72 MCG CAPSULE PO SCH (23:33)
[2019-10-11] MEDS: POLYETHYLENE (MIRALAX) 17 GM PACK PO SCH (23:33)
[2019-10-11] MEDS: CETIRIZINE HCL 10 MG TABLET PO SCH (23:33)
[2019-10-11] MEDS: PYRIDOSTIGMINE BROMIDE 60 MG TAB PO SCH (23:33)
[2019-10-11] MEDS: HYDROmorphone INJ 0.5 MG/0.5 ML SYR IV PRN (23:42)
[2019-10-11] MEDS: ACETAMINOPHEN 1,000 MG/100 ML VIAL IV SCH (23:45)
[2019-10-12] MEDS: AZELASTINE~ORDER AWAITING ACTION SCH ×4 (00:03→23:19)
[2019-10-12] MEDS: [UNRECOGNIZED DRUG - OTHER] SCH ×4 (00:03→23:20)
[2019-10-12] MEDS: metroNIDAZOLE 500 MG/100 ML BAG IV SCH ×3 (01:05→16:28)
[2019-10-12] MEDS: AZTREONAM 2,000 MG in DEXTROSE 5% 100 ML IV SCH ×3 (02:07→17:35)
[2019-10-12] MEDS: VANCOMYCIN HCL 750 MG in SODIUM CHLORIDE 0.9% 250 ML IV SCH ×4 (02:22→21:11)
[2019-10-12] MEDS: HYDROCORTISONE SOD 50 MG in SYRINGE 0 ML IV SCH ×3 (04:27→15:47)
[2019-10-12] MEDS: LORazepam 0.5 MG/1 ML VIAL IV PRN ×3 (04:28→21:24)
[2019-10-12] MEDS: POTASSIUM CHLORIDE 40 MEQ in SODIUM CHLORIDE 0.9% 1000ML 1,000 ML IV SCH ×3 (06:17→22:29)
[2019-10-12] MEDS ORDERED: LAVAGE SOLUTION 4000ML PO ONE (07:00)
[2019-10-12] MEDS ORDERED: HEPARIN 100 UNIT/ML 5ML FLUSH FLUSH PRN (07:15)
[2019-10-12 07:36] LABS: Hematocrit (blood only) 32.8 % (37-47); Hemoglobin 10.9 g/dL (12.0-16.0); Mean Corpuscular Hemoglobin 32.2 pg (25-34); Mean Corpuscular Hgb Conc 33.2 g/dL (32-36); Mean Corpuscular Volume 96.8 fL (80-100); Mean Platelet Volume 10.3 fL (7.4-10.4); Platelet Count 213 K/uL (130-400); RDW Coefficient of Variation 11.8 % (11.5-14.5); RDW Standard Deviation 42.1 fL (36.4-46.3); Red Blood Count 3.39 M/uL (4.2-5.4)
[2019-10-12 08:12] LABS: Basophils # (auto) 0.01 K/uL (0-0.2); Immature Granulocytes # (auto) 0.07 K/uL (0.00-0.02); Immature Granulocytes % (auto) 0.3 %; Lymphocytes # (auto) 0.28 K/uL (1.2-3.4); Lymphocytes % (auto) 1.3 %; Monocytes # (auto) 0.44 K/uL (0.11-0.59); Monocytes % (auto) 2.1 %; Neutrophils % (auto) 96.3 %
[2019-10-12 08:19] LABS: Albumin Globulin Ratio 1.2 (0.9-2); Albumin Level 2.9 gm/dl (3.4-5.0); BUN Creatinine Ratio 11.2 (10-20); Bilirubin,Total 0.3 mg/dl (0.2-1); C Reactive Protein 8.28 mg/dl (0-0.29); Calcium 8.1 mg/dl (8.5-10.1); Creatinine Clr Calc Pharmacy 113.5 ml/min; Est GFR (Non-African American) 128.5; Globulin 2.4 gm/dl (2.5-4.0); Potassium 4.2 mmol/L (3.5-5.1); Total Protein 5.3 gm/dl (6.4-8.2)
[2019-10-12] MEDS: POLYETHYLENE (MIRALAX) 17 GM PACK PO SCH ×3 (08:30→21:28)
[2019-10-12] MEDS: DICYCLOMINE HCL 10 MG CAP PO PRN (08:31)
[2019-10-12] MEDS: PANTOprazole 40 MG TAB PO SCH (08:32)
[2019-10-12] MEDS: FAMOTIDINE 20 MG in SYRINGE 3 ML IV SCH ×2 (08:32→21:11)
[2019-10-12] MEDS: PYRIDOSTIGMINE BROMIDE 60 MG TAB PO SCH ×3 (08:33→21:28)
[2019-10-12] MEDS: LINACLOTIDE 72 MCG CAPSULE PO SCH ×2 (08:36→21:28)
[2019-10-12] MEDS ORDERED: SENNA 8.8 MG/5 ML UDP GT PRN (09:00)
[2019-10-12] MEDS: ACETAMINOPHEN 1,000 MG/100 ML VIAL IV SCH ×3 (09:43→22:29)
[2019-10-12] MEDS: KETOROLAC TROMETHAMINE 15 MG/ML VIAL IV PRN ×2 (10:12→21:24)
[2019-10-12 10:27] LABS: Appearance Urine Clear (Clear); Bilirubin Urine Negative (Negative); Blood Urine Negative (Negative); Color Urine Yellow; Glucose Urine UA Negative (Negative); Ketones Urine 1+ (Negative); Leukocyte Esterase Urine Negative (Negative); Nitrite Urine Negative (Negative); Protein Urine Negative (Negative); Specific Gravity Urine 1.017 (1.000-1.030); Urobilinogen Urine Negative (Negative)
[2019-10-12] MEDS: HYDROmorphone INJ 0.5 MG/0.5 ML SYR IV PRN ×3 (10:37→22:28)
[2019-10-12] MEDS: ONDANSETRON INJ 2 MG/ML 2 ML VIAL IV PRN ×2 (13:55→20:10)
--- NOTE | 2019-10-12 14:29 | Electrocardiogram Report ---
Test Reason : Blood Pressure : / mmHG Vent. Rate : 092 BPM Atrial Rate : 092 BPM P-R Int : 146 ms QRS Dur : 084 ms QT Int : 382 ms P-R-T Axes : 053 054 047 degrees QTc Int : 472 ms Normal sinus rhythm Normal ECG When compared with ECG of 11-OCT-2019 15:26, Nonspecific T wave abnormality no longer evident in Inferior leads Confirmed by Fausto Jones ([id number]) on 10/12/2019 2:29:33 PM Referred By: REFERRED SELF Confirmed By:Fausto Jones
--- NOTE | 2019-10-12 14:55 | Hospitalist Progress Note ---
Date of Service October 12, 2019 Assessment & Plan (1) Sepsis: Concern for bacteremia and sepsis given rise in WBC after port was accessed and sudden worsening of symptoms occurred after this. one set of blood cultures growing GN bacilli, no h/o bacteremia, confirmed this with her mother continue on Aztreonam, Cipro, Flagyl for now, taper tomorrow based on final cultures source is unclear, although she has abdominal pain there does not appear to be infectious/inflammatory changes in abdomen (2) Intractable nausea and vomiting: Acute on chronic. ?worse due to bacteremia as above. Unfortunately limited options for this given allergies and side effects listed. Will continue ondansetron 4mg q4h PRN. symptoms slightly better today (3) Abdominal pain, diffuse: Mainly lower abdominal which she reports is more unusual for her and most likely related to post operative inflammation Acetaminophen EMERALD Toradol 1st line PRN Dilaudid if above not successful but discussed with patient to limit use of this as likely will prolong her recovery. no obvious infection in abdomen, WBC down to 20k, no fever no vaginal discharge with recent hysterectomy (4) Jejunostomy tube in situ: Ok for patient to use PO meds via J-tube as long as they can be crushed (5) On total parenteral nutrition (TPN): Given concern for bacteremia will hold off further nutrition pending blood cultures being negative. 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 Now with post operative ileus as a complication. Will continue her usual regimen with: senna tea (patient to have her mother to bring this in) Linzess BID Miralax QID Mestinon Acutely will help with [place] bowel prep through her J-tube which has worked for her in the past. (7) Adrenal insufficiency: Start stress dose steroids given ongoing hypotension and tachycardia and chronic hydrocortisone use. Hydrocortisone 50mg IV q6h for 1 day then taper to 25mg q6h for 1 day. BP is better today, less nausea (8) POTS (postural orthostatic tachycardia syndrome): Noted prior diagnosis of this, HR is stable today (9) Electrolyte abnormality: Replace Mg, K and PO as needed, stable today (10) Venous thromboembolism (VTE) prophylaxis not indicated: Given young age and not on OCP, low likelihood of PE therefore will defer any DVT prophylaxis currently Admission and Anticipated Discharge Date Admission Date: October 11, 2019 Subjective patient still with lower abdominal pain, no BM, currently getting Go Lytely via J tube she said that Dilaudid helped her pain slightly still with nausea initial blood cultures with gram negative bacilli, unclear etiology WBC coming down, Cr stable and electrolytes stable discussed with her mom over the phone, she spoke with her Paid Search Specialist at [facility], said that the Go Lytely could be stopped if it was causing pain Review of Systems Review of Systems: All systems reviewed & are unremarkable except as noted in HPI & below Constitutional: + fatigue and + weakness; no fever, no chills and no sweats Respiratory: no cough and no dyspnea Cardiovascular: no chest pain and no edema Gastrointestinal: + abdominal pain, + nausea, + vomiting and + constipation; no diarrhea/loose stools Physical Exam Constitutional: well developed, + ill appearing and + thin; no acute distress Eyes: PERRL, conjunctivae normal, anicteric sclerae ENMT: external ear and nose normal, oropharynx normal Neck: trachea midline, no thyromegaly Respiratory: normal respiratory effort, lungs clear to auscultation Cardiovascular: RRR, no murmur, no edema Gastrointestinal (Abdomen): Inspection/Auscultation: normal bowel sounds; + abdomen abnormal to inspection (J tube in place) and abdomen not distended Percussion/Palpation: + abdomen tender (LLQ), + guarding and abdomen soft; abdomen not rigid Musculoskeletal: no cyanosis or clubbing, extremities motor strength 5/5 Skin: no rashes, warm and dry Neurologic: patellar DTR's 2+ bilat, sensation intact and PERRL, EOMI, accommodation nl, no face palsy, no dysarthria Psychiatric: A+Ox3, euthymic affect Lymphatic: no cervical or axillary lymphadenopathy Results & Data Results & Data ([facility]) Vital Signs (Past 12 Hours) Vital Signs Temp Pulse Pulse Resp BP Pulse Ox 10/12/19 14:52 82 10/12/19 11:28 36.3 C L 93 H 20 95/63 L 100 10/12/19 07:39 36.7 C 101 H 18 88/55 L 96 10/12/19 07:15 99 H 10/12/19 03:08 36.7 C 102 H 16 89/51 L 96 Laboratory Results Laboratory Results - last 24 hr 10/11/19 10/11/19 10/11/19 15:06 15:06 15:06 WBC 26.49 H D RBC 3.77 L Hgb 12.3 Hct 36.0 L MCV 95.5 MCH 32.6 MCHC 34.2 RDW Std Deviation 40.0 RDW Coeff of Tim 11.6 Plt Count 268 MPV 10.4 Immature Gran % (Auto) 0.4 Neut % (Auto) 94.4 Lymph % (Auto) 1.2 [place] % (Auto) 3.9 Eos % (Auto) 0.0 Baso % (Auto) 0.1 Immature Gran # (Auto) 0.11 H Neut # (Auto) 24.99 H Lymph # (Auto) 0.33 L [place] # (Auto) 1.02 H Eos # (Auto) 0.01 Baso # (Auto) 0.03 ESR Sodium 138 Potassium 3.4 L Chloride 107 Carbon Dioxide 23 Anion Gap 8.0 BUN 11 Creatinine 0.78 Est Cr Clr Drug Dosing Not Reportable Est GFR ( Amer) 120.8 Est GFR (Non-Af Amer) 104.2 BUN/Creatinine Ratio 14.5 Glucose 109 H Lactate 1.1 Calcium 9.2 Magnesium 1.7 L Total Bilirubin 0.5 Direct Bilirubin 0.1 AST 18 ALT 26 Alkaline Phosphatase 45 C-Reactive Protein Total Protein 6.8 Albumin 4.1 Globulin Albumin/Globulin Ratio Lipase 110 Urine Color Urine Appearance Urine pH Ur Specific [place] Urine Protein Urine Glucose (UA) Urine Ketones Urine Blood Urine Nitrite Urine Bilirubin Urine Urobilinogen Ur Leukocyte Esterase 10/12/19 10/12/19 10/12/19 07:08 07:08 07:08 WBC 21.40 H RBC 3.39 L Hgb 10.9 L Hct 32.8 L MCV 96.8 MCH 32.2 MCHC 33.2 RDW Std Deviation 42.1 RDW Coeff of Tim 11.8 Plt Count 213 MPV 10.3 Immature Gran % (Auto) 0.3 Neut % (Auto) 96.3 Lymph % (Auto) 1.3 [place] % (Auto) 2.1 Eos % (Auto) 0.0 Baso % (Auto) 0.0 Immature Gran # (Auto) 0.07 H Neut # (Auto) 20.60 H Lymph # (Auto) 0.28 L [place] # (Auto) 0.44 Eos # (Auto) 0.00 Baso # (Auto) 0.01 ESR 3 Sodium 140 Potassium 4.2 D Chloride 113 H Carbon Dioxide 21 Anion Gap 6.0 BUN 6 L D Creatinine 0.55 L Est Cr Clr Drug Dosing 113.5 Est GFR ( Amer) 149.0 Est GFR (Non-Af Amer) 128.5 BUN/Creatinine Ratio 11.2 Glucose 107 H Lactate Calcium 8.1 L Magnesium Total Bilirubin 0.3 Direct Bilirubin AST 24 ALT 38 Alkaline Phosphatase 45 C-Reactive Protein 8.28 H Total Protein 5.3 L D Albumin 2.9 L Globulin 2.4 L Albumin/Globulin Ratio 1.2 Lipase Urine Color Urine Appearance Urine pH Ur Specific [place] Urine Protein Urine Glucose (UA) Urine Ketones Urine Blood Urine Nitrite Urine Bilirubin Urine Urobilinogen Ur Leukocyte Esterase 10/12/19 10:15 WBC RBC Hgb Hct MCV MCH MCHC RDW Std Deviation RDW Coeff of Tim Plt Count MPV Immature Gran % (Auto) Neut % (Auto) Lymph % (Auto) [place] % (Auto) Eos % (Auto) Baso % (Auto) Immature Gran # (Auto) Neut # (Auto) Lymph # (Auto) [place] # (Auto) Eos # (Auto) Baso # (Auto) ESR Sodium Potassium Chloride Carbon Dioxide Anion Gap BUN Creatinine Est Cr Clr Drug Dosing Est GFR ( Amer) Est GFR (Non-Af Amer) BUN/Creatinine Ratio Glucose Lactate Calcium Magnesium Total Bilirubin Direct Bilirubin AST ALT Alkaline Phosphatase C-Reactive Protein Total Protein Albumin Globulin Albumin/Globulin Ratio Lipase Urine Color Yellow Urine Appearance Clear Urine pH 5.0 Ur Specific [place] 1.017 Urine Protein Negative Urine Glucose (UA) Negative Urine Ketones 1+ H Urine Blood Negative Urine Nitrite Negative Urine Bilirubin Negative Urine Urobilinogen Negative Ur Leukocyte Esterase Negative Medications Administered Current Inpatient Medications Cetirizine HCl (Zyrtec) 10 mg PO HS EMERALD Stop: 11/10/19 20:59 Last Admin: 10/11/19 23:33 Dose: Not Given Documented by: Dicyclomine HCl (Bentyl) 10 mg PO Q6H PRN PRN Reason: Abdominal Pain Stop: 11/10/19 20:29 Last Admin: 10/12/19 08:31 Dose: 10 mg Documented by: Heparin Sodium (Porcine) (Heparin Sod 100 Unit/Ml Flush) 5 ml FLUSH PRN PRN PRN Reason: Flush Stop: 06/26/20 07:14 Hydrocortisone (Cortef) 15 mg PO QAM [facility] Stop: 11/13/19 08:59 Hydrocortisone (Cortef) 10 mg PO DAILY@1600 [facility] Stop: 11/13/19 15:59 Hydromorphone HCl (Dilaudid) 0.5 mg IV Q1H PRN PRN Reason: Pain Stop: 10/25/19 15:59 Last Admin: 10/12/19 10:37 Dose: 0.5 mg Documented by: Hyoscyamine (Levsin) 0.125 mg SL Q4H PRN PRN Reason: Abdominal Discomfort Stop: 11/10/19 20:29 Last Admin: 10/12/19 08:33 Dose: 0.125 mg Documented by: Famotidine 20 mg/ Syringe 5 mls @ 2.5 mls/min IV BID [facility] Stop: 11/10/19 20:59 Last Admin: 10/12/19 08:32 Dose: 2.5 mls/min Documented by: Aztreonam 2,000 mg/ Dextrose 110 mls @ 100 mls/hr IV Q8H [facility]; Protocol Stop: 10/14/19 01:59 Last Infusion: 10/12/19 11:15 Dose: Infused Documented by: Metronidazole (Flagyl) 500 mg in 100 mls @ 100 mls/hr IV Q8H [facility] Stop: 10/14/19 00:59 Last Infusion: 10/12/19 09:25 Dose: Infused Documented by: Hydrocortisone Sodium (Succinate 50 mg/ Syringe) 1 mls @ 4 mls/min IV Q6H [facility] Stop: 10/12/19 16:01 Last Admin: 10/12/19 09:59 Dose: 4 mls/min Documented by: Hydrocortisone Sodium (Succinate 25 mg/ Syringe) 0.5 mls @ 4 mls/min IV Q6H [facility] Stop: 10/13/19 16:01 Potassium Chloride 40 meq/ (Sodium Chloride) 1,020 mls @ 125 mls/hr IV .Q8H10M [facility] Stop: 11/10/19 20:59 Last Admin: 10/12/19 13:57 Dose: 125 mls/hr Documented by: Vancomycin HCl 750 mg/ Sodium (Chloride) 265 mls @ 125 mls/hr IV Q6H [facility] Stop: 10/14/19 01:59 Last Admin: 05/27/20 13:57 Dose: 125 mls/hr Documented by: Lorazepam (Ativan) 0.5 mg in 1 mls @ 1 mls/min IV Q4H PRN PRN Reason: anxiety, agitation, nausea Stop: 11/10/19 22:30 Last Admin: 10/12/19 04:28 Dose: 1 mls/min Documented by: Acetaminophen (Ofirmev) 1,000 mg in 100 mls @ 400 mls/hr IV Q8H EMERALD Stop: 10/14/19 22:59 Last Infusion: 10/12/19 09:59 Dose: Infused Documented by: Ketorolac Tromethamine (Toradol) 15 mg IV Q6H PRN PRN Reason: Pain Stop: 10/16/19 20:55 Last Admin: 10/12/19 10:12 Dose: 15 mg Documented by: Linaclotide (Linzess) 144 mcg PO BID EMERALD Stop: 11/10/19 21:44 Last Admin: 10/12/19 08:36 Dose: 144 mcg Documented by: Miscellaneous (Order Awaiting Action) 1 ea N/A QS [facility] Stop: 11/10/19 21:59 Last Admin: 10/12/19 08:29 Dose: Not Given Documented by: Miscellaneous (Order Awaiting Action) 1 ea N/A QS [facility] Stop: 11/10/19 21:59 Last Admin: 10/12/19 08:29 Dose: Not Given Documented by: Miscellaneous (Order Awaiting Action) 1 ea N/A QS [facility] Stop: 11/10/19 21:59 Last Admin: 10/12/19 08:29 Dose: Not Given Documented by: Miscellaneous Information (Consult) 1 ea N/A UD PRN PRN Reason: Consult Stop: 11/10/19 20:29 Ondansetron HCl (Zofran) 4 mg IV Q4H PRN PRN Reason: Nausea Stop: 11/10/19 21:13 Last Admin: 10/12/19 13:55 Dose: 4 mg Documented by: Pantoprazole Sodium (Protonix) 40 mg PO QAM [facility] Stop: 11/11/19 08:59 Last Admin: 10/12/19 08:32 Dose: 40 mg Documented by: Polyethylene Glycol (Miralax Powder Packet) 17 gm PO TID [facility] Stop: 06/25/20 20:59 Last Admin: 10/12/19 13:58 Dose: Not Given Documented by: Pyridostigmine [place] (Mestinon) 30 mg PO TID EMERALD Stop: 11/10/19 20:59 Last Admin: 10/12/19 14:04 Dose: 30 mg Documented by: Sennosides (Senokot) 8.8 mg GT DAILY PRN PRN Reason: CONSTIPATION Stop: 11/11/19 08:59 Tramadol HCl (Ultram) 50 mg PO Q4H PRN PRN Reason: Pain Stop: 11/10/19 20:29 PG Care Time/CCT Total # of Minutes Spent Total Time Spent with Patient: Total time spent is greater than 50% in coordination of care (as documented) at patient's floor/unit and/or counseling patient: Coding Level of Care Code 18697 Subseq Hosp Care Lvl 3 Diagnoses Sepsis A41.9 Sepsis acute organ dysfunction status: without acute organ dysfunction Sepsis type: sepsis due to unspecified organism Intractable nausea and vomiting R11.2 Abdominal pain, diffuse R10.84 Jejunostomy tube in situ Z93.4 On total parenteral nutrition (TPN) Z78.9 Generalized intestinal dysmotility K59.8 Adrenal insufficiency E27.40 POTS (postural orthostatic tachycardia syndrome) I49.8 Electrolyte abnormality E87.8 Venous thromboembolism (VTE) prophylaxis not indicated (1) Sepsis Sepsis acute organ dysfunction status: without acute organ dysfunction Sepsis type: sepsis due to unspecified organism Qualified Code(s): A41.9 - Sepsis, unspecified organism
[2019-10-12] MEDS ORDERED: VANCOMYCIN TROUGH ONE (19:30)
[2019-10-12] MEDS: HYDROCORTISONE SOD 25 MG in SYRINGE 0 ML IV SCH (21:11)
[2019-10-12] MEDS: CETIRIZINE HCL 10 MG TABLET PO SCH (21:28)
[2019-10-13] MEDS: AZTREONAM 2,000 MG in DEXTROSE 5% 100 ML IV SCH (01:49)
[2019-10-13] MEDS: VANCOMYCIN HCL 750 MG in SODIUM CHLORIDE 0.9% 250 ML IV SCH ×2 (01:51→07:52)
[2019-10-13] MEDS: metroNIDAZOLE 500 MG/100 ML BAG IV SCH ×2 (01:54→08:56)
[2019-10-13] MEDS: ONDANSETRON INJ 2 MG/ML 2 ML VIAL IV PRN ×3 (01:57→10:54)
[2019-10-13] MEDS: HYDROmorphone INJ 0.5 MG/0.5 ML SYR IV PRN ×6 (01:57→23:40)
[2019-10-13] MEDS: HYDROCORTISONE SOD 25 MG in SYRINGE 0 ML IV SCH ×2 (04:21→10:55)
[2019-10-13] MEDS: POTASSIUM CHLORIDE 40 MEQ in SODIUM CHLORIDE 0.9% 1000ML 1,000 ML IV SCH ×3 (06:19→15:00)
[2019-10-13] MEDS: ACETAMINOPHEN 1,000 MG/100 ML VIAL IV SCH ×3 (06:19→22:52)
[2019-10-13 06:28] LABS: Basophils # (auto) 0.01 K/uL (0-0.2); Basophils % (auto) 0.1 %; Eosinophils # (auto) 0.01 K/uL (0-0.5); Eosinophils % (auto) 0.1 %; Hematocrit (blood only) 29.8 % (37-47); Immature Granulocytes # (auto) 0.05 K/uL (0.00-0.02); Immature Granulocytes % (auto) 0.4 %; Lymphocytes # (auto) 0.67 K/uL (1.2-3.4); Lymphocytes % (auto) 5.2 %; Mean Corpuscular Hemoglobin 32.7 pg (25-34); Mean Corpuscular Hgb Conc 33.6 g/dL (32-36); Mean Corpuscular Volume 97.4 fL (80-100); Mean Platelet Volume 10.3 fL (7.4-10.4); Monocytes # (auto) 0.79 K/uL (0.11-0.59); Monocytes % (auto) 6.1 %; Neutrophils # (auto) 11.47 K/uL (1.4-6.5); Neutrophils % (auto) 88.1 %; Platelet Count 203 K/uL (130-400); RDW Coefficient of Variation 11.7 % (11.5-14.5); RDW Standard Deviation 41.6 fL (36.4-46.3); Red Blood Count 3.06 M/uL (4.2-5.4)
[2019-10-13 07:04] LABS: Alanine Aminotransferase 29 U/L (12-78); Albumin Level 2.8 gm/dl (3.4-5.0); Aspartate Aminotransferase 14 U/L (15-37); BUN Creatinine Ratio 13.7 (10-20); Blood Urea Nitrogen 7 mg/dl (7-18); Calcium 7.7 mg/dl (8.5-10.1); Carbon Dioxide 21 mmol/L (21-32); Chloride 114 mmol/L (98-107); Creatinine Clr Calc Pharmacy 126.9 ml/min; Est GFR (African American) > 150.0; Est GFR (Non-African American) 131.8; Glucose 93 mg/dl (70-99); Magnesium 1.7 mg/dl (1.8-2.4); Potassium 4.1 mmol/L (3.5-5.1); Sodium 141 mmol/L (136-145)
[2019-10-13 07:08] LABS: Albumin Globulin Ratio 1.2 (0.9-2); Alkaline Phosphatase 38 U/L (45-117); Bilirubin,Total 0.3 mg/dl (0.2-1); Globulin 2.3 gm/dl (2.5-4.0); Phosphorus 2.3 mg/dl (2.5-4.9); Total Protein 5.1 gm/dl (6.4-8.2)
[2019-10-13] MEDS: [UNRECOGNIZED DRUG - OTHER] SCH ×2 (07:48→15:31)
[2019-10-13] MEDS: AZELASTINE~ORDER AWAITING ACTION SCH ×2 (07:48→15:31)
[2019-10-13] MEDS ORDERED: SODIUM PHOSPHATE 3 MMOL/1 ML INFUSION IV STA (07:53)
[2019-10-13] MEDS ORDERED: SODIUM PHOSPHATE 9 MMOL in SODIUM CHLORIDE 0.9% 250 ML IV ONE (08:15)
[2019-10-13] MEDS: FAMOTIDINE 20 MG in SYRINGE 3 ML IV SCH ×2 (08:56→22:44)
[2019-10-13] MEDS: LORazepam 0.5 MG/1 ML VIAL IV PRN ×3 (09:50→22:44)
[2019-10-13] MEDS: LEVOFLOXACIN/D5W 750 MG/150 ML BAG IV SCH (09:55)
[2019-10-13] MEDS: MAGNESIUM SULFATE / D5W 1 GM/100 ML BAG IV SCH ×2 (10:54→12:29)
[2019-10-13] MEDS: DICYCLOMINE HCL 10 MG CAP PO PRN (12:29)
[2019-10-13] MEDS: PYRIDOSTIGMINE BROMIDE 60 MG TAB PO SCH ×4 (12:29→22:56)
[2019-10-13] MEDS: LINACLOTIDE 72 MCG CAPSULE PO SCH ×3 (12:30→22:56)
[2019-10-13] MEDS: POLYETHYLENE (MIRALAX) 17 GM PACK PO SCH ×3 (12:30→22:56)
[2019-10-13] MEDS: PANTOprazole 40 MG TAB PO SCH ×2 (12:31→13:11)
[2019-10-13] MEDS ORDERED: ONDANSETRON INJ 2 MG/ML 2 ML VIAL IV PRN (13:08)
[2019-10-13] MEDS: ondansetron HCL 8 MG in DEXTROSE 5% 50 ML IV PRN ×2 (13:31→20:06)
[2019-10-13] MEDS: HYDROCORTISONE SOD 100 MG in SYRINGE 0 ML IV SCH ×2 (14:15→22:45)
[2019-10-13] MEDS: KETOROLAC TROMETHAMINE 15 MG/ML VIAL IV PRN ×2 (14:47→22:44)
[2019-10-13] MEDS ORDERED: FOSAPREPITANT DIMEGLUMINE 150 MG in SODIUM CHLORIDE 0.9% 145 ML IV ONE (15:29)
[2019-10-13] MEDS ORDERED: FOSAPREPITANT DIMEGLUMINE 115 MG in 0.9 % SODIUM CHLORIDE 111.1667 ML IV ONE (16:00)
--- NOTE | 2019-10-13 16:28 | Consultation Report ---
DATE OF CONSULTATION: 10/13/2019 REASON FOR EVALUATION: Abdominal pain, nausea, vomiting and sepsis. 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 She also has a longstanding history of endometriosis and has had 4 laparoscopic procedures, fulgurated implants in last 5 years. On 10/07/2019, the patient underwent a laparoscopic assisted vaginal hysterectomy at [facility] and did well. She was at home and then presented to the hospital on 10/11/2019 with tachycardia, hypotension and a white count of over 26,000. She had blood cultures drawn from the right arm and her left subclavian infusaport, both of which are growing pseudomonas like organisms. The patient has been taking antibiotics. Her white count now is down to 13,000. She continues to have some nausea and abdominal pain. Her antinausea medication is being somewhat modified by the hospitalist to help symptomatically. The patient states she gets her infusaport flushed once a week at the medical treatment unit and it has been in for approximately 2 years. PAST MEDICAL HISTORY: Remarkable for SMA syndrome, intestinal dysmotility, endometriosis, adenoidectomy, appendectomy, cholecystectomy, tonsillectomy, SMA surgery. She also has had a lumpectomy, multiple laparoscopies and a vaginal hysterectomy about a week ago. ALLERGIES: Per list. FAMILY HISTORY: Noncontributory. SOCIAL HISTORY: The patient is single, lives at home, does not work. PHYSICAL EXAMINATION: GENERAL: The patient appears acutely ill, but in no acute distress. VITAL SIGNS: Show blood pressure 96/60, pulse is in the 90s. ABDOMEN: Shows a gastrostomy tube in place and some healed laparoscopic ports, 1 on each flank and 1 in the umbilicus area which are well healed. There is no abdominal tenderness on exam. SKIN: There is no redness or tenderness at the left anterior infusaport site. IMPRESSION: The patient has pseudomonas sepsis from probably an infected infusaport with resultant hypotension, nausea and vomiting. The patient is currently on antibiotics and her white blood cell count is coming down. I would recommend continued support as in place and I would recommend consulting with the [facility] surgeons who initially placed the infusaport to consider removing it, placing a temporary central line for IV fluids and then eventually replacing the infusaport once infection has cleared.
--- NOTE | 2019-10-13 17:27 | Hospitalist Progress Note ---
Date of Service October 13, 2019 Assessment & Plan (1) Sepsis: Concern for bacteremia and sepsis given rise in WBC after port was accessed and sudden worsening of symptoms occurred after this. blood cultures growing possible Pseudomonas species, no h/o Pseudomonas infection possible port infection given recent access and no other clear etiology stop all current antibiotics, start on Levaquin (limited options for coverage due to allergies) plan to repeat cultures in 48 hours with one set drawn from port, this would be Thursday morning WBC down to 13k, still with chills, weakness (2) Intractable nausea and vomiting: Acute on chronic. per patient and her mom, she always has intense nausea/vomiting with antibiotic use, very sensitive hoping that reducing from three to one antibiotics will help not responding to Zofran, allergic to other options can try Ativan PRN will give a dose of Emend 115mg IV x 1 and look for response over the next 24 hours consult [facility] for any other thoughts, sees Dr. Fernández locally (3) Abdominal pain, diffuse: Mainly lower abdominal which she reports is more unusual for her and most likely related to post operative inflammation Acetaminophen EMERALD Toradol 1st line PRN Dilaudid if above not successful but discussed with patient to limit use of this as likely will prolong her recovery. no obvious infection in abdomen, WBC down to 13k, no fever no vaginal discharge with recent hysterectomy which was done for endometriosis (4) Jejunostomy tube in situ: hooked up for draining upper abdomen (5) On total parenteral nutrition (TPN): Given bacteremia will hold off further nutrition if port infected will need to be removed, place PICC line temporarily (6) Generalized intestinal dysmotility: Acute on chronic. Now with post operative ileus as a complication. Will continue her usual regimen with: senna tea (patient to have her mother to bring this in) Linzess BID Miralax QID Mestinon not tolerating anything PO at this time ask [facility] to weigh in on complicated case (7) Adrenal insufficiency: stress dose steroids with Hydrocortisone 100mg q8 for today and tomorrow (8) POTS (postural orthostatic tachycardia syndrome): Noted prior diagnosis of this, HR is stable today (9) Electrolyte abnormality: Mag and Phos low today, replaced IV (10) Venous thromboembolism (VTE) prophylaxis not indicated: Given young age and not on OCP, low likelihood of PE therefore will defer any DVT prophylaxis currently Admission and Anticipated Discharge Date Admission Date: October 11, 2019 Subjective patient experiencing dry heaves any time she moves she has venting J tube hooked up to drain stomach, not helping at all stopped Go Lytely prep d/w her mom over the phone, she had some relief with Emend in the past, will try a dose today CBC and BMP stable, mag and phos a little low, replaced BP running low normal, increased Hydrocortisone blood cultures with Pseudomonas species, stopped Vanco, Aztreonam and Flagyl, start on Levaquin she always has nausea with antibiotics, difficult for her to tolerated requested consult with [facility] for the ongoing nausea and dry heaves, any possible suggestions spoke with her mom on the phone for 15 minutes Review of Systems Review of Systems: All systems reviewed & are unremarkable except as noted in HPI & below Constitutional: + fever, + chills, + body aches, + fatigue and + weakness Gastrointestinal: + abdominal pain, + nausea and + vomiting Physical Exam Constitutional: well developed, + ill appearing and + thin; no acute distress Eyes: PERRL, conjunctivae normal, anicteric sclerae ENMT: external ear and nose normal, oropharynx normal Neck: trachea midline, no thyromegaly Respiratory: normal respiratory effort, lungs clear to auscultation Cardiovascular: RRR, no murmur, no edema Gastrointestinal (Abdomen): Inspection/Auscultation: normal bowel sounds; + abdomen abnormal to inspection (J tube in place) and abdomen not distended Percussion/Palpation: + abdomen tender (LLQ), + guarding and abdomen soft; abdomen not rigid Musculoskeletal: no cyanosis or clubbing, extremities motor strength 5/5 Skin: no rashes, warm and dry Neurologic: patellar DTR's 2+ bilat, sensation intact and PERRL, EOMI, accommodation nl, no face palsy, no dysarthria Psychiatric: A+Ox3, euthymic affect Lymphatic: no cervical or axillary lymphadenopathy Results & Data Results & Data ([facility]) Vital Signs (Past 12 Hours) Vital Signs Temp Pulse Pulse Resp BP Pulse Ox 10/13/19 14:56 36.8 C 99 H 18 93/67 L 99 10/13/19 11:04 36.7 C 75 18 111/78 99 10/13/19 07:40 36.8 C 108 H 18 94/60 L 98 10/13/19 07:20 86 Laboratory Results Laboratory Results - last 24 hr 10/12/19 10/13/19 10/13/19 19:44 06:05 06:05 WBC 13.00 H RBC 3.06 L Hgb 10.0 L Hct 29.8 L MCV 97.4 MCH 32.7 MCHC 33.6 RDW Std Deviation 41.6 RDW Coeff of Tim 11.7 Plt Count 203 MPV 10.3 Immature Gran % (Auto) 0.4 Neut % (Auto) 88.1 Lymph % (Auto) 5.2 [place] % (Auto) 6.1 Eos % (Auto) 0.1 Baso % (Auto) 0.1 Immature Gran # (Auto) 0.05 H Neut # (Auto) 11.47 H Lymph # (Auto) 0.67 L [place] # (Auto) 0.79 H Eos # (Auto) 0.01 Baso # (Auto) 0.01 Sodium 141 Potassium 4.1 Chloride 114 H Carbon Dioxide 21 Anion Gap 6.0 BUN 7 Creatinine 0.51 L Est Cr Clr Drug Dosing 126.9 Est GFR ( Amer) > 150.0 Est GFR (Non-Af Amer) 131.8 BUN/Creatinine Ratio 13.7 Glucose 93 Calcium 7.7 L Phosphorus 2.3 L D Magnesium 1.7 L Total Bilirubin 0.3 AST 14 L ALT 29 Alkaline Phosphatase 38 L Total Protein 5.1 L Albumin 2.8 L Globulin 2.3 L Albumin/Globulin Ratio 1.2 Vancomycin Trough 16.5 Microbiology 10/11/19 16:20 Blood Aerobic Blood Culture - Preliminary Probable Pseudomonas species 10/11/19 16:20 Blood Anaerobic Blood Culture - Preliminary No growth in Anaerobic bottle after 48 hours. 10/11/19 16:14 Blood Aerobic Blood Culture - Preliminary Probable Pseudomonas species 10/11/19 16:14 Blood Anaerobic Blood Culture - Preliminary No growth in Anaerobic bottle after 48 hours. Medications Administered Current Inpatient Medications Cetirizine HCl (Zyrtec) 10 mg PO HS EMERALD Stop: 11/10/19 20:59 Last Admin: 10/12/19 21:28 Dose: Not Given Documented by: Dicyclomine HCl (Bentyl) 10 mg PO Q6H PRN PRN Reason: Abdominal Pain Stop: 11/10/19 20:29 Last Admin: 10/12/19 08:31 Dose: 10 mg Documented by: Heparin Sodium (Porcine) (Heparin Sod 100 Unit/Ml Flush) 5 ml FLUSH PRN PRN PRN Reason: Flush Stop: 11/11/19 07:14 Last Admin: 10/12/19 21:11 Dose: 5 ml Documented by: Hydromorphone HCl (Dilaudid) 0.5 mg IV Q1H PRN PRN Reason: Pain Stop: 10/25/19 15:59 Last Admin: 10/13/19 16:09 Dose: 0.5 mg Documented by: Hyoscyamine (Levsin) 0.125 mg SL Q4H PRN PRN Reason: Abdominal Discomfort Stop: 11/10/19 20:29 Last Admin: 10/12/19 08:33 Dose: 0.125 mg Documented by: Famotidine 20 mg/ Syringe 5 mls @ 2.5 mls/min IV BID EMERALD Stop: 11/10/19 20:59 Last Admin: 10/13/19 08:56 Dose: 2.5 mls/min Documented by: Potassium Chloride 40 meq/ (Sodium Chloride) 1,020 mls @ 80 mls/hr IV .[id number] EMERALD Stop: 11/10/19 20:59 Last Infusion: 10/13/19 14:04 Dose: Infused Documented by: Lorazepam (Ativan) 0.5 mg in 1 mls @ 1 mls/min IV Q4H PRN PRN Reason: anxiety, agitation, nausea Stop: 11/10/19 22:30 Last Admin: 10/13/19 14:48 Dose: 1 mls/min Documented by: Acetaminophen (Ofirmev) 1,000 mg in 100 mls @ 400 mls/hr IV Q8H EMERALD Stop: 10/14/19 22:59 Last Infusion: 10/13/19 14:47 Dose: Infused Documented by: Levofloxacin/Dextrose (Levaquin/D5w) 750 mg in 150 mls @ 100 mls/hr IV Q24H EMERALD Stop: 10/27/19 07:59 Last Infusion: 10/13/19 10:55 Dose: Infused Documented by: Ondansetron HCl 8 mg/ Dextrose 54 mls @ 216 mls/hr IV Q6H PRN PRN Reason: Nausea Stop: 11/12/19 13:14 Last Infusion: 10/13/19 13:40 Dose: Infused Documented by: Hydrocortisone Sodium (Succinate 100 mg/ Syringe) 2 mls @ 4 mls/min IV Q8H EMERALD Stop: 11/12/19 13:29 Last Admin: 10/13/19 14:15 Dose: 4 mls/min Documented by: Ketorolac Tromethamine (Toradol) 15 mg IV Q6H PRN PRN Reason: Pain Stop: 10/16/19 20:55 Last Admin: 10/13/19 14:47 Dose: 15 mg Documented by: Linaclotide (Linzess) 144 mcg PO BID EMERALD Stop: 11/10/19 21:44 Last Admin: 10/13/19 13:11 Dose: Not Given Documented by: Miscellaneous (Order Awaiting Action) 1 ea N/A QS [facility] Stop: 11/10/19 21:59 Last Admin: 10/13/19 15:31 Dose: Not Given Documented by: Miscellaneous (Order Awaiting Action) 1 ea N/A QS [facility] Stop: 11/10/19 21:59 Last Admin: 10/13/19 15:31 Dose: Not Given Documented by: Miscellaneous (Order Awaiting Action) 1 ea N/A QS [facility] Stop: 11/10/19 21:59 Last Admin: 10/13/19 15:31 Dose: Not Given Documented by: Pantoprazole Sodium (Protonix) 40 mg PO QAM [facility] Stop: 11/11/19 08:59 Last Admin: 10/13/19 13:11 Dose: Not Given Documented by: Polyethylene Glycol (Miralax Powder Packet) 17 gm PO TID EMERALD Stop: 11/10/19 20:59 Last Admin: 10/13/19 13:41 Dose: Not Given Documented by: Pyridostigmine [place] (Mestinon) 30 mg PO TID EMERALD Stop: 11/10/19 20:59 Last Admin: 10/13/19 13:41 Dose: Not Given Documented by: Sennosides (Senokot) 8.8 mg GT DAILY PRN PRN Reason: CONSTIPATION Stop: 11/11/19 08:59 Tramadol HCl (Ultram) 50 mg PO Q4H PRN PRN Reason: Pain Stop: 11/10/19 20:29 PG Care Time/CCT Total # of Minutes Spent Total Time Spent with Patient: Total time spent is greater than 50% in coordination of care (as documented) at patient's floor/unit and/or counseling patient: Coding Level of Care Code 96965 Subseq Hosp Care Lv 3 Diagnoses Sepsis A41.9 Sepsis type: sepsis due to unspecified organism Sepsis acute organ dysfunction status: without acute organ dysfunction Intractable nausea and vomiting R11.2 Abdominal pain, diffuse R10.84 Jejunostomy tube in situ Z93.4 On total parenteral nutrition (TPN) Z78.9 Generalized intestinal dysmotility K59.8 Adrenal insufficiency E27.40 POTS (postural orthostatic tachycardia syndrome) I49.8 Electrolyte abnormality E87.8 Venous thromboembolism (VTE) prophylaxis not indicated (1) Sepsis Sepsis type: sepsis due to unspecified organism Sepsis acute organ dysfunction status: without acute organ dysfunction Qualified Code(s): A41.9 - Sepsis, unspecified organism
[2019-10-13] MEDS ORDERED: LIDOCAINE HCL 1% 20 ML VIAL ONE (19:43)
[2019-10-13] MEDS ORDERED: BUPIVACAINE 0.5 % 5 MG/1 ML MPF 30ML VIAL ONE (19:43)
[2019-10-13] MEDS ORDERED: LIDOCAINE/EPINEPHRINE 1% 20 ML VIAL ONE (19:44)
--- NOTE | 2019-10-13 19:53 | Surgery Consultation ---
Date of Consultation October 13, 2019 Assessment & Plan (1) Sepsis: pt is a 29 year-old female who was admitted to hospital for sepsis- infected port-catheter. IMP: sepsis, infected port- catheter Plan, I recommend to do remove the port- catheter, D/W benefits, risks and alternatives of the surgery, the risks - infection, bleeding, sepsis, blood clot, pt understood, she agrees with the surgery, I answered all questions, History of Present Illness Attending Physician: Tony Drummond DO History of Present Illness Chief Complaint: Intractable abdominal pain, nausea and vomiting Primary Care Provider: Mariah Addison DO Chris Garcia is a 29 year old female with multiple chronic medical issues mainly revolving around her generalized intestinal dysmotility who presents to the ER with intractable nausea, vomiting and abdominal pain. She notes having increased dysmotility issues since her hysterectomy 2 weeks ago for which she has been increasing her MiraLAX dosing and outpatient enemas without a succes sful bowel movement in the last 3 days (at that time is was hard and painful). She notes her GI specialist at [facility] was planning on a colonoscopy for fecal evacuation sometime next week. She also notes increased lower abdominal pain since this operation which has not been getting worse up until today but also not improving, more severe when she has an enema. More acutely today she had her port accessed as per routine for her chronic TPN and 2 hours after this felt suddenly nauseous and has not stopped vomiting since then with sudden increase in her abdominal pain. Associated chills and shaking. Current pain in lower abdomen 4/10 after toradol and morphine givne in ER. Severeity 9/10 on arrival in ER. She notes she always has some nausea but the intractable vomiting she can usually control with her home medications. She denies any vaginal discharge since the operation. She has been taking the occasional tramadol for her lower abdominal pain but limiting use as she correlates opaites with worsening of her dysmotility issues. Pain is different on this occasional as a lot more severe. Intense abdominal pain and presyncope when doing this. Today having chills and shaking in addition. Currently lower abdominal pain 4/10, 9/10 when she came in, slowly progressing since the operation. Nausea and vomiting always has nausea but contanstant today. She denies shortness of breath, chest pain, cough. No change in taste or smell. Per her usual bowel regimen: Normally takes miralax 1-2 a day. Since the operation advised to take 3-4/day. Last took this yesterday. Fleet enemas usually once/day. Since surgery advised to use 2-3 enemas fleet enemas a day, causing a lot of pain. Mestinon dosing not changed. Water enema once a day (for a few months) Senna tea. Usual nutrition is with TPN but she does intermittently eat some foods. I ( Dawson Geiger MD ) got a call for consult infected port, I reviewed pt's H/P, labs, with pt, Allergies Allergy/AdvReac Type Severity Reaction Status Date / Time amoxicillin Allergy Intermediate RASH Verified 10/11/19 15:02 Bactrim Allergy Intermediate RASH Verified 08/13/17 12:16 cefazolin Allergy Intermediate rash Verified 10/11/19 15:02 Cephalosporins Allergy Intermediate HIVES Verified 10/11/19 15:02 clavulanic acid Allergy Intermediate HIVES Verified 10/11/19 15:02 Penicillins Allergy Intermediate HIVES Verified 10/11/19 15:02 prochlorperazine Allergy Intermediate HIVES Verified 10/11/19 15:02 promethazine Allergy Intermediate hives, Verified 10/11/19 15:02 throat swelling sulfamethoxazole Allergy Intermediate RASH Verified 10/11/19 15:02 sumatriptan Allergy Intermediate RASH Verified 10/11/19 15:02 trimethoprim Allergy Intermediate RASH Verified 10/11/19 15:02 metoclopramide AdvReac Severe anxiety/ Verified 10/11/19 15:02 jittery diphenhydramine AdvReac Intermediate Tachycardia, Verified 10/11/19 15:02 Severe Anxiety WITH IV ONLY erythromycin base AdvReac Intermediate GI SYMPTOMS Verified 10/11/19 15:02 citalopram [From Celexa] AdvReac Unknown Verified 10/11/19 15:02 MULTIVITAMIN Allergy Intermediate Unknown Uncoded 10/11/19 15:02 Home Medications Home Medications Medication Instructions Recorded Confirmed Type Linzess 145 mcg PO BID 03/07/18 10/11/19 History albuterol sulfate [ProAir HFA] 2 puff INHALATION QID PRN 03/07/18 10/11/19 History azelastine 1 - 2 spray INTRANASAL BID PRN 03/07/18 10/11/19 History cetirizine [Zyrtec] 10 mg PO HS 03/07/18 10/11/19 History dicyclomine 10 - 20 mg PO Q6H PRN 03/07/18 10/11/19 History hyoscyamine sulfate [Levsin/SL] 0.125 mg SUBLINGUAL Q4H PRN 03/07/18 10/11/19 History ondansetron HCl [Zofran] 4 mg PO Q6H PRN 03/07/18 10/11/19 History senna leaf 180 ml PO DAILY PRN 11/19/18 10/11/19 History famotidine 20 mg tablet 20 mg PO BID tab 05/26/19 10/11/19 History tretinoin [Retin-A] 1 applic TOPICAL UD 07/12/19 10/11/19 History polyethylene glycol 3350 [Miralax] 17 g PO TID #0 ea 07/16/19 10/11/19 Rx Emgality Syringe 120 mg SQ MONTHLY 08/22/19 10/11/19 History hydrocortisone [Cortef] 15 mg PO QAM 09/08/19 10/11/19 History pantoprazole [Protonix] 40 mg PO QAM 09/08/19 10/11/19 History pyridostigmine bromide [Mestinon] 30 mg PO TID 09/08/19 10/11/19 History tramadol 50 mg PO Q4H PRN 10/11/19 10/11/19 History trimethobenzamide 300 mg PO UD PRN 10/11/19 10/11/19 History Past Med/Surg History Social History Preferred Language: Estonian Communication Ability: Effective Visual Impairment: No Limitations Hearing Ability: Normal Retail Specialist Required: No Beliefs That Will Affect Care: None marital status: single Current Living Situation: Family current occupational status: unemployed Other Information That Helps Us Care for You: No Feels Safe at Home: Yes Safety Concerns: Feels Safe At This Time Smoking Status: Never smoker Second Hand Exposure: No ; Hx Alcohol Use: No Hx Substance Use: No Review of Systems Review of Systems: All systems reviewed & are unremarkable except as noted in HPI & below Allergies Allergy/AdvReac Type Severity Reaction Status Date / Time amoxicillin Allergy Intermediate RASH Verified 10/11/19 15:02 Bactrim Allergy Intermediate RASH Verified 08/13/17 12:16 cefazolin Allergy Intermediate rash Verified 10/11/19 15:02 Cephalosporins Allergy Intermediate HIVES Verified 10/11/19 15:02 clavulanic acid Allergy Intermediate HIVES Verified 10/11/19 15:02 Penicillins Allergy Intermediate HIVES Verified 10/11/19 15:02 prochlorperazine Allergy Intermediate HIVES Verified 10/11/19 15:02 promethazine Allergy Intermediate hives, Verified 10/11/19 15:02 throat swelling sulfamethoxazole Allergy Intermediate RASH Verified 10/11/19 15:02 sumatriptan Allergy Intermediate RASH Verified 10/11/19 15:02 trimethoprim Allergy Intermediate RASH Verified 10/11/19 15:02 metoclopramide AdvReac Severe anxiety/ Verified 10/11/19 15:02 jittery diphenhydramine AdvReac Intermediate Tachycardia, Verified 10/11/19 15:02 Severe Anxiety WITH IV ONLY erythromycin base AdvReac Intermediate GI SYMPTOMS Verified 10/11/19 15:02 citalopram [From Celexa] AdvReac Unknown Verified 10/11/19 15:02 MULTIVITAMIN Allergy Intermediate Unknown Uncoded 10/11/19 15:02 Home Medications Home Medications Medication Instructions Recorded Confirmed Type Linzess 145 mcg PO BID 03/07/18 10/11/19 History albuterol sulfate [ProAir HFA] 2 puff INHALATION QID PRN 03/07/18 10/11/19 History azelastine 1 - 2 spray INTRANASAL BID PRN 03/07/18 10/11/19 History cetirizine [Zyrtec] 10 mg PO HS 03/07/18 10/11/19 History dicyclomine 10 - 20 mg PO Q6H PRN 03/07/18 10/11/19 History hyoscyamine sulfate [Levsin/SL] 0.125 mg SUBLINGUAL Q4H PRN 03/07/18 10/11/19 History ondansetron HCl [Zofran] 4 mg PO Q6H PRN 03/07/18 10/11/19 History senna leaf 180 ml PO DAILY PRN 11/19/18 10/11/19 History famotidine 20 mg tablet 20 mg PO BID tab 05/26/19 10/11/19 History tretinoin [Retin-A] 1 applic TOPICAL UD 07/12/19 10/11/19 History polyethylene glycol 3350 [Miralax] 17 g PO TID #0 ea 07/16/19 10/11/19 Rx Emgality Syringe 120 mg SQ MONTHLY 08/22/19 10/11/19 History hydrocortisone [Cortef] 15 mg PO QAM 09/08/19 10/11/19 History pantoprazole [Protonix] 40 mg PO QAM 09/08/19 10/11/19 History pyridostigmine bromide [Mestinon] 30 mg PO TID 09/08/19 10/11/19 History tramadol 50 mg PO Q4H PRN 10/11/19 10/11/19 History trimethobenzamide 300 mg PO UD PRN 10/11/19 10/11/19 History Patient History Social History Preferred Language: Estonian Communication Ability: Effective Visual Impairment: No Limitations Hearing Ability: Normal Retail Specialist Required: No Beliefs That Will Affect Care: None marital status: single Current Living Situation: Family current occupational status: unemployed Other Information That Helps Us Care for You: No Feels Safe at Home: Yes Safety Concerns: Feels Safe At This Time Smoking Status: Never smoker Second Hand Exposure: No ; Hx Alcohol Use: No Hx Substance Use: No Review of Systems Review of Systems: All systems reviewed & are unremarkable except as noted in HPI & below Constitutional: as per Subjective / HPI Eyes: as per Subjective / HPI Ear, Nose, Mouth, Throat: as per Subjective / HPI Respiratory: as per Subjective / HPI Cardiovascular: as per Subjective / HPI Additional Comments: hypotension Gastrointestinal: as per Subjective / HPI abdominal pain, nausea, vomiting, S/P cholecystectomy, TPN Genitourinary: as per Subjective / HPI UTI Musculoskeletal: as per Subjective / HPI Integumentary: as per Subjective / HPI Neurologic: as per Subjective / HPI Psychiatric: as per Subjective / HPI Endocrine: as per Subjective / HPI Hematologic / Lymphatic: as per Subjective / HPI Allergy / Immunological: as per Subjective / HPI Physical Exam Constitutional: WD/WN, vitals as above + ill appearing Eyes: PERRL, conjunctivae normal, anicteric sclerae ENMT: external ear and nose normal, oropharynx normal Neck: trachea midline, no thyromegaly Respiratory: normal respiratory effort, lungs clear to auscultation Cardiovascular: RRR, no murmur, no edema Rate/Rhythm: regular rate and regular rhythm Chest (Breasts): Additional Comments: one port is locate at left side upper chest wall, no redness, no tenderness, Gastrointestinal (Abdomen): normal bowel sounds, soft, nontender, no hepatosplenomegaly Percussion/Palpation: abdomen soft G-tube intact, Musculoskeletal: no cyanosis or clubbing, extremities motor strength 5/5 Skin: no rashes, warm and dry Neurologic: patellar DTR's 2+ bilat, sensation intact Psychiatric: Orientation: alert and oriented x 3 Results & Data Vital Signs (Past 12 Hours) Vital Signs Temp Pulse Pulse Resp BP Pulse Ox 10/13/19 19:36 36.6 C 88 15 114/75 100 10/13/19 16:00 100 H 10/13/19 14:56 36.8 C 99 H 18 93/67 L 99 10/13/19 11:04 36.7 C 75 18 111/78 99 Laboratory Results Abnormal lab results 10/13/19 10/13/19 Range/Units 06:05 06:05 WBC 13.00 H (4.8-10.8) K/uL RBC 3.06 L (4.2-5.4) M/uL Hgb 10.0 L (12.0-16.0) g/dL Hct 29.8 L (37-47) % Immature Gran # (Auto) 0.05 H (0.00-0.02) K/uL Neut # (Auto) 11.47 H (1.4-6.5) K/uL Lymph # (Auto) 0.67 L (1.2-3.4) K/uL [place] # (Auto) 0.79 H (0.11-0.59) K/uL Chloride 114 H (98-107) mmol/L Creatinine 0.51 L (0.6-1.2) mg/dl Calcium 7.7 L (8.5-10.1) mg/dl Phosphorus 2.3 L D (2.5-4.9) mg/dl Magnesium 1.7 L (1.8-2.4) mg/dl AST 14 L (15-37) U/L Alkaline Phosphatase 38 L (45-117) U/L Total Protein 5.1 L (6.4-8.2) gm/dl Albumin 2.8 L (3.4-5.0) gm/dl Globulin 2.3 L (2.5-4.0) gm/dl Diagnostic Findings [facility] [address] [place] [address] / Director: Eugene Whitmore M.D. Clinical Laboratory Report Name: CHRIS GARCIA Acct: [id number] Status: ADM IN : 1990 [facility] Date: 10/11/19 Age: 29 Sex: F Dis Date: Loc: [address]/Bed: N2801 Spec: [id number] Collected: 10/11/19 Received: 10/11/19-[address]: Elio Rowell M.D. Source: Blood OV Order: Ordered: Blood Culture Comments: Comment Default is separate sites, same time Procedure Result Verified Site Blood Culture Aerobic Preliminary 10/13/19-1156 Organism 1 Probable Pseudomonas species Sens Sensitivities to Follow Phoned positive Blood Culture Gram Stain report to JESUS GALDAMEZ on 10/12/19 at 1416 by [id number]. [place] [id number]. Blood Culture Anaerobic Preliminary 10/13/19-1701 No growth in Anaerobic bottle after 48 hours. Name: CHRIS GARCIA : 1990 PAGE 1 Printed: 10/13/191952 END OF REPORT (1) Sepsis Sepsis acute organ dysfunction status: without acute organ dysfunction Sepsis type: sepsis due to unspecified organism Qualified Code(s): A41.9 - Sepsis, unspecified organism
--- NOTE | 2019-10-13 19:59 | History & Physical Bridge Note ---
Date of Service October 13, 2019 History & Physical Bridge Note I have examined the patient, reviewed the History & Physical and in the interval since the performance of the History & Physical I have noted the following changes of clinical significance: no changes noted
[2019-10-13] MEDS ORDERED: CIPROFLOXACIN / D5W 400 MG/200 ML BAG IV SCH (20:15)
--- NOTE | 2019-10-13 20:56 | Post Operative Brief Note ---
Immediate Post Op Note v1 Date of Surgery October 13, 2019 Pre & Post Diagnosis Operation Date: 10/13/19 19:45 Pre-Op Diagnosis: Intractable Nausea/Vomiting and Abdominal Pain, SEPSIS, INFECTED PORT-CATHETER Post-Op Diagnosis: Intractable Nausea/Vomiting and Abdominal Pain, SEPSIS, INFECTED PORT-CATHETER I identified the patient and participated in the time-out.: Yes Procedure Operation Date: 10/13/19 19:45 Actual Procedures p Infusaport Removal(Left) - Dawson Geiger MD Surgeon Dawson Geiger MD Truss Designer FENDER REPAIRER Estimated Blood Loss 5 Findings Consistent with Post-Op Diagnosis INTACT PORT AND CATHETER Fluids NONE Specimens TIP OF CATHETER CULTURE Anesthesia Type Local Complications none Disposition Accompanied Patient To Recovery: Yes Disposition: Recovery Room Overlapping Procedure I was immediately available: during the entire case.
[2019-10-13] MEDS ORDERED: ALBUTEROL HFA 8 GM INHALER INH PRN (22:50)
[2019-10-13] MEDS: CETIRIZINE HCL 10 MG TABLET PO SCH (22:56)
--- NOTE | 2019-10-14 01:46 | Operative Report (OR) ---
DATE OF OPERATION: 10/13/2019 PREOPERATIVE DIAGNOSIS: Sepsis, infected Port-A-Cath. POSTOPERATIVE DIAGNOSIS: Sepsis, infected Port-A-Cath. PROCEDURE: Removal of tunneled Port-A-Cath, left upper chest wall. SURGEON: Dawson Geiger MD. ANESTHESIA: Local. ESTIMATED BLOOD LOSS: About 5 mL. FINDINGS: Intact port and catheter. COMPLICATIONS: None. INDICATIONS FOR THE PROCEDURE: This is a 29-year-old female who required to remove the infected port because the patient has sepsis. I did talk to the patient about the benefits, risks, and alternate procedures. I indicated the risks may include, but not limited such as bleeding, infection, sepsis, blood clot. The patient understands. She signed informed consent and I answered all questions. DETAILS OF PROCEDURE: We brought in the patient to the OR, put the patient in the supine position. The patient received Cipro 400 mg IV for prophylactic antibiotic and patient had vital signs monitored by his registered nurse. The left upper chest wall was prepped and draped in routine sterile fashion. After time-out, I injected local anesthesia by using 1% lidocaine mixed with 0.5% Marcaine around the port. Then I made about a 2.5 cm incision and reached the port, subcutaneous layer, removed the fix suture and completely removed the port with the catheter. The catheter is tunneled. Once we removed the whole port and the catheter, we did send the tip of the catheter for culture. Hemostasis was obtained. Then using 2-0 nylon, we closed the incision interruptedly, then we put the dressing on. The patient tolerated the procedure well. All the instrument, needle, and sponge counts were correct x2 at the end of the case and patient transferred to recovery room in stable condition. Postop care instructions were given. The patient understands. I attest to the content of the Intraoperative Record and any orders documented therein. Any exceptions are noted below. MALACHI
[2019-10-14] MEDS: POTASSIUM CHLORIDE 40 MEQ in SODIUM CHLORIDE 0.9% 1000ML 1,000 ML IV SCH (05:04)
[2019-10-14] MEDS: HYDROCORTISONE SOD 100 MG in SYRINGE 0 ML IV SCH ×2 (05:04→13:12)
[2019-10-14] MEDS: HYDROmorphone INJ 0.5 MG/0.5 ML SYR IV PRN ×4 (05:35→20:32)
[2019-10-14] MEDS: ACETAMINOPHEN 1,000 MG/100 ML VIAL IV SCH ×2 (05:36→16:30)
[2019-10-14 06:08] LABS: Basophils # (auto) 0.01 K/uL (0-0.2); Basophils % (auto) 0.1 %; Hematocrit (blood only) 30.8 % (37-47); Hemoglobin 10.4 g/dL (12.0-16.0); Immature Granulocytes # (auto) 0.02 K/uL (0.00-0.02); Immature Granulocytes % (auto) 0.2 %; Lymphocytes # (auto) 0.48 K/uL (1.2-3.4); Lymphocytes % (auto) 4.5 %; Mean Corpuscular Hemoglobin 32.1 pg (25-34); Mean Corpuscular Hgb Conc 33.8 g/dL (32-36); Mean Corpuscular Volume 95.1 fL (80-100); Mean Platelet Volume 10.3 fL (7.4-10.4); Monocytes # (auto) 0.53 K/uL (0.11-0.59); Neutrophils # (auto) 9.51 K/uL (1.4-6.5); Neutrophils % (auto) 90.2 %; Platelet Count 213 K/uL (130-400); RDW Coefficient of Variation 11.5 % (11.5-14.5); RDW Standard Deviation 39.9 fL (36.4-46.3); Red Blood Count 3.24 M/uL (4.2-5.4); White Blood Count 10.55 K/uL (4.8-10.8)
[2019-10-14 06:42] LABS: BUN Creatinine Ratio 12.6 (10-20); Blood Urea Nitrogen 6 mg/dl (7-18); Calcium 7.8 mg/dl (8.5-10.1); Carbon Dioxide 23 mmol/L (21-32); Chloride 111 mmol/L (98-107); Creatinine Clr Calc Pharmacy 124.4 ml/min; Est GFR (African American) > 150.0; Est GFR (Non-African American) 130.9; Glucose 99 mg/dl (70-99); Magnesium 1.7 mg/dl (1.8-2.4); Phosphorus 2.8 mg/dl (2.5-4.9); Potassium 3.8 mmol/L (3.5-5.1); Sodium 141 mmol/L (136-145)
[2019-10-14] MEDS: LEVOFLOXACIN/D5W 750 MG/150 ML BAG IV SCH (08:23)
[2019-10-14] MEDS: AZELASTINE~ORDER AWAITING ACTION SCH ×3 (08:24→16:34)
[2019-10-14] MEDS: LINACLOTIDE 72 MCG CAPSULE PO SCH ×2 (08:24→20:27)
[2019-10-14] MEDS: [UNRECOGNIZED DRUG - OTHER] SCH ×3 (08:24→16:34)
[2019-10-14] MEDS: POLYETHYLENE (MIRALAX) 17 GM PACK PO SCH ×3 (08:25→20:27)
[2019-10-14] MEDS: PYRIDOSTIGMINE BROMIDE 60 MG TAB PO SCH ×3 (08:25→20:27)
[2019-10-14] MEDS ORDERED: HYDROCORTISONE 10 MG TAB PO SCH ×2 (09:00→16:00)
[2019-10-14] MEDS: FAMOTIDINE 20 MG in SYRINGE 3 ML IV SCH ×2 (09:04→20:32)
[2019-10-14] MEDS ORDERED: Nursing to Pharmacy Communication ONE (09:27)
[2019-10-14] MEDS ORDERED: FOSAPREPITANT DIMEGLUMINE 115 MG in 0.9 % SODIUM CHLORIDE 111.2 ML IV ONE (10:00)
[2019-10-14] MEDS: ondansetron HCL 8 MG in DEXTROSE 5% 50 ML IV PRN ×2 (10:05→17:15)
[2019-10-14] MEDS ORDERED: TPN/PPN CONSULT PHARMACY PRN (10:07)
[2019-10-14] MEDS: KETOROLAC TROMETHAMINE 15 MG/ML VIAL IV PRN (10:08)
[2019-10-14] MEDS ORDERED: DEXTROSE 10% 1,000 ML IV PRN (10:11)
[2019-10-14] MEDS ORDERED: D5W AND 1/2NSS 1,000 ML IV SCH (10:30)
[2019-10-14] MEDS: PANTOprazole 40 MG TAB PO SCH (10:34)
[2019-10-14] MEDS: PANTOprazole 40 MG in SYRINGE 0 ML IV SCH (10:37)
[2019-10-14] MEDS: MAGNESIUM SULFATE / D5W 1 GM/100 ML BAG IV SCH ×2 (11:25→13:12)
[2019-10-14] MEDS: POTASSIUM CHLORIDE 40 MEQ in D5W AND 1/2NSS 1,000 ML IV SCH (11:28)
--- NOTE | 2019-10-14 13:24 | Progress Notes ---
DATE: 10/14/2019 SUBJECTIVE: The patient is now postop day 1 for removal of an infected Xyewfu-D-Gvdr with Pseudomonas aeruginosa sensitive to Cipro. Her antibiotics have been culled down to Cipro alone as she has had adverse reactions to multiple antibiotics in the past and have also contributed to her nausea and vomiting. She is currently getting some Ativan and a medication called Emend to see if it helps with some of her nausea. I suspect that as her infection improves the nausea will improve along with it. OBJECTIVE: Vital signs are normal. She is afebrile. White count is down to 10,000 from an initial level of over 26,000. She has a PICC line that was placed last night in the right arm for her IV fluids and medication. Abdomen is soft. G-tube is in the epigastric area and appears to be in good shape and not infected. The previous site where the Swgagx-W-Wcwg was is covered with a gauze pad, but there is no erythema or tenderness around it. IMPRESSION: The patient's infected Syxflj-R-Qmww has been removed. Hopefully, this will speed her recovery from Pseudomonas bacteremia and sepsis I think her nausea and vomiting can be attributed to her chronic GI problems as well as being septic. Hopefully, the Emend and Ativan will continue to improve her nausea symptoms. Dr. Julien Baker will be covering this weekend if there are any GI issues that need to be attended to.
--- NOTE | 2019-10-14 13:59 | Surgery Progress Note ---
Date of Service October 14, 2019 Assessment & Plan (1) Sepsis: POD # 1 s/p removal of left sided aport catheter -leukocytosis improved to 10K (13k preop) - catheter tip culture pending - Blood culture with Pseudomonas pansensitive, on Cipro Plan: Continue IV Abx From surgical standpoint: Keep sutures in for 10-14 days. Follow-up in surgical office after discharge for suture removal. Our services signing off Dr. Geiger has seen and examined pt, agrees with above. Subjective feeling nauseated, has emesis bag at face not much pain at prior port site, dressing in place Physical Exam Constitutional: + thin; no acute distress looking uncomfortable due to nausea with emesis bag to face Respiratory: normal respiratory effort Chest (Breasts): Additional Comments: Prior left port site with dry clean dressing in place. No surrounding edema or erythema. Skin: no rashes, warm and dry Results & Data Vital Signs (Past 12 Hours) Vital Signs Temp Pulse Pulse Resp BP Pulse Ox 10/14/19 11:48 67 10/14/19 11:11 36.3 C L 73 16 115/77 97 10/14/19 07:13 36.7 C 87 16 108/75 98 10/14/19 05:24 91 H 10/14/19 03:44 36.5 C 81 15 102/68 97 Laboratory Results 10/14/19 10/14/19 Range/Units 05:37 05:37 WBC 10.55 (4.8-10.8) K/uL RBC 3.24 L (4.2-5.4) M/uL Hgb 10.4 L (12.0-16.0) g/dL Hct 30.8 L (37-47) % MCV 95.1 (80-100) fL MCH 32.1 (25-34) pg MCHC 33.8 (32-36) g/dL RDW Std Deviation 39.9 (36.4-46.3) fL RDW Coeff of Tim 11.5 (11.5-14.5) % Plt Count 213 (130-400) K/uL MPV 10.3 (7.4-10.4) fL Immature Gran % (Auto) 0.2 % Neut % (Auto) 90.2 % Lymph % (Auto) 4.5 % [place] % (Auto) 5.0 % Eos % (Auto) 0.0 % Baso % (Auto) 0.1 % Immature Gran # (Auto) 0.02 (0.00-0.02) K/uL Neut # (Auto) 9.51 H (1.4-6.5) K/uL Lymph # (Auto) 0.48 L (1.2-3.4) K/uL [place] # (Auto) 0.53 (0.11-0.59) K/uL Eos # (Auto) 0.00 (0-0.5) K/uL Baso # (Auto) 0.01 (0-0.2) K/uL Sodium 141 (136-145) mmol/L Potassium 3.8 (3.5-5.1) mmol/L Chloride 111 H (98-107) mmol/L Carbon Dioxide 23 (21-32) mmol/L Anion Gap 7.0 (3-11) BUN 6 L (7-18) mg/dl Creatinine 0.52 L (0.6-1.2) mg/dl Est Cr Clr Drug Dosing 124.4 ml/min Est GFR ( Amer) > 150.0 Est GFR (Non-Af Amer) 130.9 BUN/Creatinine Ratio 12.6 (10-20) Glucose 99 (70-99) mg/dl Calcium 7.8 L (8.5-10.1) mg/dl Phosphorus 2.8 (2.5-4.9) mg/dl Magnesium 1.7 L (1.8-2.4) mg/dl Microbiology 10/13/19 16:04 Urine Culture - Preliminary Urine,Clean Catch No growth - Less than 1,000 colonies/mL, Final report to follow. 10/13/19 20:48 Gram Stain - Final Chest Aerobic and Anaerobic Culture - Preliminary No growth to date. 10/11/19 16:14 Aerobic Blood Culture - Preliminary Blood Pseudomonas aeruginosa Anaerobic Blood Culture - Preliminary No growth in Anaerobic bottle after 48 hours. 10/11/19 16:20 Aerobic Blood Culture - Preliminary Blood Pseudomonas aeruginosa Anaerobic Blood Culture - Preliminary No growth in Anaerobic bottle after 48 hours. (1) Sepsis Sepsis acute organ dysfunction status: without acute organ dysfunction Sepsis type: sepsis due to unspecified organism Qualified Code(s): A41.9 - Sepsis, unspecified organism
[2019-10-14] MEDS: LORazepam 0.5 MG/1 ML VIAL IV PRN ×2 (15:16→22:13)
--- NOTE | 2019-10-14 15:43 | Hospitalist Progress Note ---
Date of Service October 14, 2019 Assessment & Plan (1) Bacteremia due to Pseudomonas: suspect this was due to infect port, port removed by Dr. Geiger on 10/12 cultures show that Pseudomonas is todd sensitive continue on Levaquin 750mg IV daily, will need minimal 14 days from negative cultures plan to repeat blood cultures 10/14 PICC line placed on 10/12 after port removed no fever, WBC coming down patient still with a great deal of nausea/vomiting (2) Intractable nausea and vomiting: Acute on chronic. per patient and her mom, she always has intense nausea/vomiting with antibiotic use, very sensitive hoping that reducing from three to one antibiotics will help not responding to Zofran, allergic to other options can try Ativan PRN decent response to Emend on 10/12, will try again today hoping that removing source of infection will help symptoms unfortunately she needs the Levaquin for 14 days, so if it is causing symptoms then it will be difficult to manage (3) Abdominal pain, diffuse: Mainly lower abdominal which she reports is more unusual for her and most likely related to post operative inflammation Acetaminophen EMERALD Toradol 1st line PRN Dilaudid if above not successful but discussed with patient to limit use of this as likely will prolong her recovery. 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 Now with post operative ileus as a complication. Will continue her usual regimen with: senna tea (patient to have her mother to bring this in) Linzess BID Miralax QID Mestinon -- cannot take any of these due to nausea (7) Adrenal insufficiency: stress dose steroids with Hydrocortisone 100mg q8 for today, taper back tomorrow (8) POTS (postural orthostatic tachycardia syndrome): Noted prior diagnosis of this, HR is stable today (9) Electrolyte abnormality: mag low at 1.7, replace IV Phos normal today (10) Venous thromboembolism (VTE) prophylaxis not indicated: Given young age and not on OCP, low likelihood of PE therefore will defer any DVT prophylaxis currently Admission and Anticipated Discharge Date Admission Date: October 11, 2019 Subjective appreciate GI and surgical consults patient had port removed last night, right UE PICC line placed blood cultures positive for Pseudomonas aeruginosa, fortunately it is sensitive to Levaquin reviewed labs, Mg low at 1.7, phos normal, K normal, CBC stable still with a lot of nausea, abdominal pain got some relief from Emend yesterday, will give another dose today updated her mom over the phone, talked about staring TPN for nutrition issue is that TPN often makes her more nauseated, so she and patient want to hold off d/w pharmacy, will start on some D5W for time being Review of Systems Review of Systems: All systems reviewed & are unremarkable except as noted in HPI & below Constitutional: + fatigue and + weakness; no fever Respiratory: no cough and no dyspnea Cardiovascular: no chest pain Gastrointestinal: + abdominal pain, + nausea and + vomiting; no constipation and no diarrhea/loose stools Musculoskeletal: + muscle weakness Physical Exam Constitutional: well developed, + ill appearing and + thin; no acute distress Eyes: PERRL, conjunctivae normal, anicteric sclerae ENMT: external ear and nose normal, oropharynx normal Neck: trachea midline, no thyromegaly Respiratory: normal respiratory effort, lungs clear to auscultation Cardiovascular: RRR, no murmur, no edema Gastrointestinal (Abdomen): Inspection/Auscultation: normal bowel sounds; + abdomen abnormal to inspection (J tube in place) and abdomen not distended Percussion/Palpation: + abdomen tender (LLQ), + guarding and abdomen soft; abdomen not rigid Musculoskeletal: no cyanosis or clubbing, extremities motor strength 5/5 Skin: no rashes, warm and dry Neurologic: patellar DTR's 2+ bilat, sensation intact and PERRL, EOMI, accommodation nl, no face palsy, no dysarthria Psychiatric: A+Ox3, euthymic affect Lymphatic: no cervical or axillary lymphadenopathy Results & Data Results & Data ([facility]) Vital Signs (Past 12 Hours) Vital Signs Temp Pulse Pulse Resp BP Pulse Ox 10/14/19 11:48 67 10/14/19 11:11 36.3 C L 73 16 115/77 97 10/14/19 07:13 36.7 C 87 16 108/75 98 10/14/19 05:24 91 H 10/14/19 03:44 36.5 C 81 15 102/68 97 Laboratory Results Laboratory Results - last 24 hr 10/14/19 10/14/19 05:37 05:37 WBC 10.55 RBC 3.24 L Hgb 10.4 L Hct 30.8 L MCV 95.1 MCH 32.1 MCHC 33.8 RDW Std Deviation 39.9 RDW Coeff of Tim 11.5 Plt Count 213 MPV 10.3 Immature Gran % (Auto) 0.2 Neut % (Auto) 90.2 Lymph % (Auto) 4.5 [place] % (Auto) 5.0 Eos % (Auto) 0.0 Baso % (Auto) 0.1 Immature Gran # (Auto) 0.02 Neut # (Auto) 9.51 H Lymph # (Auto) 0.48 L [place] # (Auto) 0.53 Eos # (Auto) 0.00 Baso # (Auto) 0.01 Sodium 141 Potassium 3.8 Chloride 111 H Carbon Dioxide 23 Anion Gap 7.0 BUN 6 L Creatinine 0.52 L Est Cr Clr Drug Dosing 124.4 Est GFR ( Amer) > 150.0 Est GFR (Non-Af Amer) 130.9 BUN/Creatinine Ratio 12.6 Glucose 99 Calcium 7.8 L Phosphorus 2.8 Magnesium 1.7 L Microbiology 10/13/19 16:04 Urine,Clean Catch Urine Culture - Preliminary No growth - Less than 1,000 colonies/mL, Final report to follow. 10/13/19 20:48 Chest Gram Stain - Final 10/13/19 20:48 Chest Aerobic and Anaerobic Culture - Preliminary No growth to date. 10/11/19 16:14 Blood Aerobic Blood Culture - Preliminary Pseudomonas aeruginosa 10/11/19 16:14 Blood Anaerobic Blood Culture - Preliminary No growth in Anaerobic bottle after 48 hours. 10/11/19 16:20 Blood Aerobic Blood Culture - Preliminary Pseudomonas aeruginosa 10/11/19 16:20 Blood Anaerobic Blood Culture - Preliminary No growth in Anaerobic bottle after 48 hours. Medications Administered Current Inpatient Medications Albuterol (Ventolin Hfa) 2 puffs INH QID PRN PRN Reason: Shortness Of Breath Or Wheezing Stop: 11/12/19 22:49 Cetirizine HCl (Zyrtec) 10 mg PO HS EMERALD Stop: 11/10/19 20:59 Last Admin: 10/13/19 22:56 Dose: Not Given Documented by: Dicyclomine HCl (Bentyl) 10 mg PO Q6H PRN PRN Reason: Abdominal Pain Stop: 11/10/19 20:29 Last Admin: 10/12/19 08:31 Dose: 10 mg Documented by: Heparin Sodium (Beef Lung) (Heparin Sod 10 Unit/Ml Flush) 5 ml FLUSH PRN PRN PRN Reason: Flush Stop: 11/12/19 22:38 Last Admin: 10/14/19 05:37 Dose: 5 ml Documented by: Hydromorphone HCl (Dilaudid) 0.5 mg IV Q1H PRN PRN Reason: Pain Stop: 10/25/19 15:59 Last Admin: 10/14/19 10:41 Dose: 0.5 mg Documented by: Hyoscyamine (Levsin) 0.125 mg SL Q4H PRN PRN Reason: Abdominal Discomfort Stop: 11/10/19 20:29 Last Admin: 10/12/19 08:33 Dose: 0.125 mg Documented by: Famotidine 20 mg/ Syringe 5 mls @ 2.5 mls/min IV BID EMERALD Stop: 11/10/19 20:59 Last Admin: 10/14/19 09:04 Dose: 2.5 mls/min Documented by: Lorazepam (Ativan) 0.5 mg in 1 mls @ 1 mls/min IV Q4H PRN PRN Reason: anxiety, agitation, nausea Stop: 11/10/19 22:30 Last Admin: 10/14/19 15:16 Dose: 1 mls/min Documented by: Acetaminophen (Ofirmev) 1,000 mg in 100 mls @ 400 mls/hr IV Q8H EMERALD Stop: 10/14/19 22:59 Last Admin: 10/14/19 05:36 Dose: Not Given Documented by: Levofloxacin/Dextrose (Levaquin/D5w) 750 mg in 150 mls @ 100 mls/hr IV Q24H EMERALD Stop: 10/27/19 07:59 Last Infusion: 10/14/19 10:14 Dose: Infused Documented by: Ondansetron HCl 8 mg/ Dextrose 54 mls @ 216 mls/hr IV Q6H PRN PRN Reason: Nausea Stop: 11/12/19 13:14 Last Infusion: 10/14/19 10:25 Dose: Infused Documented by: Hydrocortisone Sodium (Succinate 100 mg/ Syringe) 2 mls @ 4 mls/min IV Q8H EMERALD Stop: 11/12/19 13:29 Last Admin: 10/14/19 13:12 Dose: 4 mls/min Documented by: Pantoprazole Sodium 40 mg/ (Syringe) 10 mls @ 5 mls/min IV DAILY EMERALD Stop: 11/13/19 09:44 Last Admin: 10/14/19 10:37 Dose: 5 mls/min Documented by: Potassium Chloride 40 meq/ (Dextrose/Sodium Chloride) 1,020 mls @ 80 mls/hr IV .[id number] [facility] Stop: 11/13/19 10:59 Last Admin: 10/14/19 11:28 Dose: 80 mls/hr Documented by: Ketorolac Tromethamine (Toradol) 15 mg IV Q6H PRN PRN Reason: Pain Stop: 10/16/19 20:55 Last Admin: 10/14/19 10:08 Dose: 15 mg Documented by: Linaclotide (Linzess) 144 mcg PO BID [facility] Stop: 11/10/19 21:44 Last Admin: 10/14/19 08:24 Dose: Not Given Documented by: Miscellaneous (Order Awaiting Action) 1 ea N/A QS [facility] Stop: 11/10/19 21:59 Last Admin: 10/14/19 08:24 Dose: Not Given Documented by: Miscellaneous (Order Awaiting Action) 1 ea N/A QS [facility] Stop: 11/10/19 21:59 Last Admin: 10/14/19 08:24 Dose: Not Given Documented by: Miscellaneous (Order Awaiting Action) 1 ea N/A QS [facility] Stop: 11/10/19 21:59 Last Admin: 10/14/19 08:24 Dose: Not Given Documented by: Miscellaneous (Order Awaiting Action) 1 ea N/A QS [facility] Stop: 11/13/19 00:00 Last Admin: 10/14/19 08:24 Dose: Not Given Documented by: Ondansetron HCl (Zofran Odt) 4 mg PO Q6H PRN PRN Reason: Nausea And Vomiting Stop: 11/12/19 22:48 Polyethylene Glycol (Miralax Powder Packet) 17 gm PO TID [facility] Stop: 11/10/19 20:59 Last Admin: 10/14/19 13:13 Dose: Not Given Documented by: Pyridostigmine [place] (Mestinon) 30 mg PO TID [facility] Stop: 11/10/19 20:59 Last Admin: 10/14/19 13:13 Dose: Not Given Documented by: Sennosides (Senokot) 8.8 mg GT DAILY PRN PRN Reason: CONSTIPATION Stop: 11/11/19 08:59 Tramadol HCl (Ultram) 50 mg PO Q4H PRN PRN Reason: Pain Stop: 11/10/19 20:29 Last Admin: 10/13/19 19:17 Dose: 50 mg Documented by: PG Care Time/CCT Total # of Minutes Spent Total Time Spent with Patient: Total time spent is greater than 50% in coordination of care (as documented) at patient's floor/unit and/or counseling patient: Coding Level of Care Code 52957 Subseq Hosp Care Lvl 3 Diagnoses Bacteremia due to Pseudomonas R78.81; B96.5 Intractable nausea and vomiting R11.2 Abdominal pain, diffuse R10.84 Jejunostomy tube in situ Z93.4 On total parenteral nutrition (TPN) Z78.9 Generalized intestinal dysmotility K59.8 Adrenal insufficiency E27.40 POTS (postural orthostatic tachycardia syndrome) I49.8 Electrolyte abnormality E87.8 Venous thromboembolism (VTE) prophylaxis not indicated
--- NOTE | 2019-10-14 16:56 | Electrocardiogram Report ---
Test Reason : Blood Pressure : / mmHG Vent. Rate : 093 BPM Atrial Rate : 093 BPM P-R Int : 136 ms QRS Dur : 082 ms QT Int : 368 ms P-R-T Axes : 063 041 043 degrees QTc Int : 457 ms Normal sinus rhythm with sinus arrhythmia Normal ECG When compared with ECG of 12-OCT-2019 07:24, No significant change was found Confirmed by Fausto Jones ([id number]) on 10/14/2019 4:56:01 PM Referred By: REFERRED SELF Confirmed By:Fausto Jones
[2019-10-14] MEDS ORDERED: MAGNESIUM SULFATE / D5W 1 GM/100 ML BAG IV ONE (18:00)
[2019-10-14] MEDS: CETIRIZINE HCL 10 MG TABLET PO SCH (20:27)
[2019-10-14] MEDS: HYDROCORTISONE SOD 50 MG in SYRINGE 0 ML IV SCH (22:03)
[2019-10-15] MEDS: HYDROmorphone INJ 0.5 MG/0.5 ML SYR IV PRN ×6 (00:23→21:32)
[2019-10-15] MEDS: ondansetron HCL 8 MG in DEXTROSE 5% 50 ML IV PRN ×3 (00:32→21:12)
[2019-10-15] MEDS: AZELASTINE~ORDER AWAITING ACTION SCH ×3 (01:04→15:18)
[2019-10-15] MEDS: [UNRECOGNIZED DRUG - OTHER] SCH ×3 (01:05→15:19)
[2019-10-15] MEDS ORDERED: Nursing to Pharmacy Communication ONE (01:06)
[2019-10-15] MEDS: ONDANSETRON 4 MG OD TAB PO PRN ×2 (02:28→16:27)
[2019-10-15] MEDS: POTASSIUM CHLORIDE 40 MEQ in D5W AND 1/2NSS 1,000 ML IV SCH ×3 (03:11→23:14)
[2019-10-15] MEDS: HYDROCORTISONE SOD 50 MG in SYRINGE 0 ML IV SCH ×2 (05:48→14:26)
[2019-10-15] MEDS: LORazepam 0.5 MG/1 ML VIAL IV PRN ×3 (05:56→23:07)
[2019-10-15 06:26] LABS: Basophils # (auto) 0.01 K/uL (0-0.2); Basophils % (auto) 0.2 %; Hematocrit (blood only) 29.3 % (37-47); Hemoglobin 9.9 g/dL (12.0-16.0); Immature Granulocytes # (auto) 0.02 K/uL (0.00-0.02); Immature Granulocytes % (auto) 0.3 %; Lymphocytes # (auto) 0.95 K/uL (1.2-3.4); Lymphocytes % (auto) 14.4 %; Mean Corpuscular Hemoglobin 31.9 pg (25-34); Mean Corpuscular Hgb Conc 33.8 g/dL (32-36); Mean Corpuscular Volume 94.5 fL (80-100); Mean Platelet Volume 10.7 fL (7.4-10.4); Monocytes # (auto) 0.76 K/uL (0.11-0.59); Monocytes % (auto) 11.6 %; Neutrophils # (auto) 4.84 K/uL (1.4-6.5); Neutrophils % (auto) 73.5 %; Platelet Count 206 K/uL (130-400); RDW Coefficient of Variation 11.6 % (11.5-14.5); RDW Standard Deviation 39.7 fL (36.4-46.3); White Blood Count 6.58 K/uL (4.8-10.8)
[2019-10-15 07:09] LABS: BUN Creatinine Ratio 12.8 (10-20); Blood Urea Nitrogen 5 mg/dl (7-18); Calcium 7.9 mg/dl (8.5-10.1); Carbon Dioxide 27 mmol/L (21-32); Chloride 109 mmol/L (98-107); Creatinine Clr Calc Pharmacy 149.2 ml/min; Est GFR (African American) > 150.0; Est GFR (Non-African American) 139.4; Glucose 116 mg/dl (70-99); Potassium 3.5 mmol/L (3.5-5.1); Sodium 143 mmol/L (136-145)
[2019-10-15] MEDS ORDERED: POTASSIUM PHOS 3 MMOL/1 ML INFUSION IV STA (07:30)
[2019-10-15] MEDS ORDERED: MAGNESIUM SULFATE / D5W 1 GM/100 ML BAG IV ONE (07:30)
[2019-10-15] MEDS ORDERED: POTASSIUM PHOSPHATE 21 MMOL in SODIUM CHLORIDE 0.9% 500 ML IV ONE (08:00)
[2019-10-15] MEDS: POLYETHYLENE (MIRALAX) 17 GM PACK PO SCH ×3 (08:05→20:43)
[2019-10-15] MEDS: PYRIDOSTIGMINE BROMIDE 60 MG TAB PO SCH ×4 (08:05→21:28)
[2019-10-15] MEDS: LINACLOTIDE 72 MCG CAPSULE PO SCH ×3 (08:05→21:27)
[2019-10-15] MEDS: PANTOprazole 40 MG in SYRINGE 0 ML IV SCH (08:40)
[2019-10-15] MEDS: FAMOTIDINE 20 MG in SYRINGE 3 ML IV SCH ×2 (08:40→20:51)
--- NOTE | 2019-10-15 09:50 | Gastroenterology Progress Note ---
Date of Service October 15, 2019 Assessment & Plan (1) Nausea & vomiting: Continue current regimen. She is better. May try Miralax via J tube port when she is up to it. Admission and Anticipated Discharge Date Admission Date: October 11, 2019 Subjective Doing better. Less nausea Results & Data ([facility]) Vital Signs (Past 12 Hours) Vital Signs Temp Pulse Pulse Resp BP BP Pulse Ox 10/15/19 08:09 36.7 C 63 17 110/74 97 10/15/19 04:20 36.5 C 65 14 112/68 98 10/15/19 01:00 60 10/14/19 23:45 36.7 C 60 14 106/71 99
[2019-10-15] MEDS: LEVOFLOXACIN/D5W 750 MG/150 ML BAG IV SCH (10:37)
--- NOTE | 2019-10-15 13:33 | Hospitalist Progress Note ---
Date of Service October 15, 2019 Assessment & Plan (1) Bacteremia due to Pseudomonas: suspect this was due to infect port, port removed by Dr. Geiger on 10/12 cultures show that Pseudomonas is todd sensitive continue on Levaquin 750mg IV daily, will need minimal 14 days from negative cultures repeat blood cultures 10/14 PICC line placed on 10/12 after port removed no fever, WBC down to normal for two days now after being 27k on admission patient still with a great deal of nausea/vomiting but it is improving slightly (2) Intractable nausea and vomiting: Acute on chronic. per patient and her mom, she always has intense nausea/vomiting with antibiotic use, very sensitive hoping that reducing from three to one antibiotics will help not responding to Zofran, allergic to other options can try Ativan PRN decent response to Emend on 10/12, given again on 10/13 and will give again today hoping that removing source of infection will help symptoms unfortunately she needs the Levaquin for 14 days, so if it is causing symptoms then it will be difficult to manage (3) Abdominal pain, diffuse: Mainly lower abdominal which she reports is more unusual for her and most likely related to post operative inflammation Acetaminophen EMERALD Toradol 1st line PRN getting better relief with Dilaudid, pain is better today no obvious infection in abdomen, WBC down to 6k, no fever no vaginal discharge with recent hysterectomy which was done for endometriosis suspect pain is due to abdominal cramping, has chronic dysmotility, unfortunately she cannot take her typical medications by mouth (4) Jejunostomy tube in situ: hooked up for draining upper abdomen (5) On total parenteral nutrition (TPN): Given bacteremia will hold off further nutrition PICC line in place after port removed hold on TPN for now as she gets more nauseated give D5W starting 10/13 consider starting TPN Thursday or Thursday, but only if nausea better, she says that TPN makes her incredibly nauseated (6) Generalized intestinal dysmotility: Acute on chronic senna tea (patient to have her mother to bring this in) Linzess BID Miralax QID Mestinon -- cannot take any of these due to nausea (7) Adrenal insufficiency: stress dose steroids with Hydrocortisone 50mg q8 for today, taper to 25mg q8 tomorrow (8) POTS (postural orthostatic tachycardia syndrome): Noted prior diagnosis of this, HR is stable today (9) Electrolyte abnormality: Mg 2.0 but will give 1gm IV as it will likely drop without replacement Phos low at 2.0, will give KPhos IV replacement repeat tomorrow (10) Venous thromboembolism (VTE) prophylaxis not indicated: Given young age and not on OCP, low likelihood of PE therefore will defer any DVT prophylaxis currently patient gets up several times a day to use restroom Admission and Anticipated Discharge Date Admission Date: October 11, 2019 Subjective patient actually feeling a little better today less abdominal pain, no bloating, less intense nausea her nausea increased after she received Levaquin, ordered another dose of Emend discussed with her mom over the phone, she requested to visit daughter thinking it would help, I approved it through grinding and spraying supervisor reviewed labs, WBC normal again today, Hb stable, Cr normal, Phos low at 2.0, Mag is 2.0, K normal repeat blood cultures drawn this morning no dyspnea, no fever/chills, no chest pain, no muscle aches she has no appetite at all discussed with [facility], hoping that treating infection will resolve the nausea Review of Systems Review of Systems: All systems reviewed & are unremarkable except as noted in HPI & below Respiratory: no cough and no dyspnea Cardiovascular: no chest pain and no edema Gastrointestinal: + abdominal pain, + nausea, + vomiting (dry heaves) and + constipation (last BM was prior to admission, no PO intake since admission); no diarrhea/loose stools Physical Exam Constitutional: well developed, + ill appearing and + thin; no acute distress Eyes: PERRL, conjunctivae normal, anicteric sclerae ENMT: external ear and nose normal, oropharynx normal Neck: trachea midline, no thyromegaly Respiratory: normal respiratory effort, lungs clear to auscultation Cardiovascular: RRR, no murmur, no edema Gastrointestinal (Abdomen): Inspection/Auscultation: normal bowel sounds; + abdomen abnormal to inspection (J tube in place) and abdomen not distended Percussion/Palpation: + abdomen tender (LLQ), + guarding and abdomen soft; abdomen not rigid Musculoskeletal: no cyanosis or clubbing, extremities motor strength 5/5 Skin: no rashes, warm and dry Neurologic: patellar DTR's 2+ bilat, sensation intact and PERRL, EOMI, accommodation nl, no face palsy, no dysarthria Psychiatric: A+Ox3, euthymic affect Lymphatic: no cervical or axillary lymphadenopathy Results & Data Results & Data ([facility]) Vital Signs (Past 12 Hours) Vital Signs Temp Pulse Resp BP BP Pulse Ox 10/15/19 12:00 36.7 C 70 17 110/74 98 10/15/19 08:09 36.7 C 63 17 110/74 97 10/15/19 04:20 36.5 C 65 14 112/68 98 Laboratory Results Laboratory Results - last 24 hr 10/15/19 10/15/19 10/15/19 05:33 05:33 11:45 WBC 6.58 RBC 3.10 L Hgb 9.9 L Hct 29.3 L MCV 94.5 MCH 31.9 MCHC 33.8 RDW Std Deviation 39.7 RDW Coeff of Tim 11.6 Plt Count 206 MPV 10.7 H Immature Gran % (Auto) 0.3 Neut % (Auto) 73.5 Lymph % (Auto) 14.4 [place] % (Auto) 11.6 Eos % (Auto) 0.0 Baso % (Auto) 0.2 Immature Gran # (Auto) 0.02 Neut # (Auto) 4.84 Lymph # (Auto) 0.95 L [place] # (Auto) 0.76 H Eos # (Auto) 0.00 Baso # (Auto) 0.01 Sodium 143 Potassium 3.5 Chloride 109 H Carbon Dioxide 27 Anion Gap 7.0 BUN 5 L Creatinine 0.43 L Est Cr Clr Drug Dosing 149.2 Est GFR ( Amer) > 150.0 Est GFR (Non-Af Amer) 139.4 BUN/Creatinine Ratio 12.8 Glucose 116 H POC Glucose 130 H Calcium 7.9 L Phosphorus 2.0 L Magnesium 2.0 Microbiology 10/13/19 16:04 Urine,Clean Catch Urine Culture - Final No growth - less than 1,000 colonies/mL. 10/13/19 20:48 Chest Gram Stain - Final 10/13/19 20:48 Chest Aerobic and Anaerobic Culture - Preliminary No growth to date. 10/11/19 16:14 Blood Aerobic Blood Culture - Preliminary Pseudomonas aeruginosa 10/11/19 16:14 Blood Anaerobic Blood Culture - Preliminary No growth in Anaerobic bottle after 48 hours. 10/11/19 16:20 Blood Aerobic Blood Culture - Preliminary Pseudomonas aeruginosa 10/11/19 16:20 Blood Anaerobic Blood Culture - Preliminary No growth in Anaerobic bottle after 48 hours. Medications Administered Current Inpatient Medications Albuterol (Ventolin Hfa) 2 puffs INH QID PRN PRN Reason: Shortness Of Breath Or Wheezing Stop: 11/12/19 22:49 Cetirizine HCl (Zyrtec) 10 mg PO HS EMERALD Stop: 11/10/19 20:59 Last Admin: 10/14/19 20:27 Dose: Not Given Documented by: Dicyclomine HCl (Bentyl) 10 mg PO Q6H PRN PRN Reason: Abdominal Pain Stop: 11/10/19 20:29 Last Admin: 10/12/19 08:31 Dose: 10 mg Documented by: Heparin Sodium (Beef Lung) (Heparin Sod 10 Unit/Ml Flush) 5 ml FLUSH PRN PRN PRN Reason: Flush Stop: 11/12/19 22:38 Last Admin: 10/14/19 05:37 Dose: 5 ml Documented by: Hydromorphone HCl (Dilaudid) 0.5 mg IV Q1H PRN PRN Reason: Pain Stop: 10/25/19 15:59 Last Admin: 10/15/19 13:14 Dose: 0.5 mg Documented by: Hyoscyamine (Levsin) 0.125 mg SL Q4H PRN PRN Reason: Abdominal Discomfort Stop: 11/10/19 20:29 Last Admin: 10/12/19 08:33 Dose: 0.125 mg Documented by: Famotidine 20 mg/ Syringe 5 mls @ 2.5 mls/min IV BID EMERALD Stop: 11/10/19 20:59 Last Admin: 10/15/19 08:40 Dose: 2.5 mls/min Documented by: Lorazepam (Ativan) 0.5 mg in 1 mls @ 1 mls/min IV Q4H PRN PRN Reason: anxiety, agitation, nausea Stop: 11/10/19 22:30 Last Admin: 10/15/19 05:56 Dose: 1 mls/min Documented by: Levofloxacin/Dextrose (Levaquin/D5w) 750 mg in 150 mls @ 100 mls/hr IV Q24H EMERALD Stop: 10/27/19 07:59 Last Infusion: 10/15/19 12:15 Dose: Infused Documented by: Ondansetron HCl 8 mg/ Dextrose 54 mls @ 216 mls/hr IV Q6H PRN PRN Reason: Nausea Stop: 11/12/19 13:14 Last Infusion: 10/15/19 08:20 Dose: Infused Documented by: Pantoprazole Sodium 40 mg/ (Syringe) 10 mls @ 5 mls/min IV DAILY [facility] Stop: 11/13/19 09:44 Last Admin: 10/15/19 08:40 Dose: 5 mls/min Documented by: Potassium Chloride 40 meq/ (Dextrose/Sodium Chloride) 1,020 mls @ 80 mls/hr IV .[id number] [facility] Stop: 11/13/19 10:59 Last Admin: 10/15/19 03:11 Dose: 80 mls/hr Documented by: Hydrocortisone Sodium (Succinate 50 mg/ Syringe) 1 mls @ 4 mls/min IV Q8H [facility] Stop: 11/13/19 21:59 Last Admin: 10/15/19 05:48 Dose: 4 mls/min Documented by: Fosaprepitant 115 mg/ Sodium (Chloride) 111.2 mls @ 450 mls/hr IV 1345 ONE Stop: 10/15/19 13:59 Ketorolac Tromethamine (Toradol) 15 mg IV Q6H PRN PRN Reason: Pain Stop: 10/16/19 20:55 Last Admin: 10/14/19 10:08 Dose: 15 mg Documented by: Linaclotide (Linzess) 144 mcg PO BID [facility] Stop: 11/10/19 21:44 Last Admin: 10/15/19 08:05 Dose: Not Given Documented by: Miscellaneous (Order Awaiting Action) 1 ea N/A QS [facility] Stop: 11/10/19 21:59 Last Admin: 10/15/19 08:04 Dose: Not Given Documented by: Miscellaneous (Order Awaiting Action) 1 ea N/A QS [facility] Stop: 11/10/19 21:59 Last Admin: 10/15/19 08:04 Dose: Not Given Documented by: Miscellaneous (Order Awaiting Action) 1 ea N/A QS [facility] Stop: 11/10/19 21:59 Last Admin: 10/15/19 08:04 Dose: Not Given Documented by: Miscellaneous (Order Awaiting Action) 1 ea N/A QS [facility] Stop: 11/13/19 00:00 Last Admin: 10/15/19 08:04 Dose: Not Given Documented by: Ondansetron HCl (Zofran Odt) 4 mg PO Q6H PRN PRN Reason: Nausea And Vomiting Stop: 11/12/19 22:48 Last Admin: 10/15/19 02:28 Dose: 4 mg Documented by: Polyethylene Glycol (Miralax Powder Packet) 17 gm PO TID [facility] Stop: 11/10/19 20:59 Last Admin: 10/15/19 08:05 Dose: Not Given Documented by: Pyridostigmine [place] (Mestinon) 30 mg PO TID [facility] Stop: 11/10/19 20:59 Last Admin: 10/15/19 08:05 Dose: Not Given Documented by: Sennosides (Senokot) 8.8 mg GT DAILY PRN PRN Reason: CONSTIPATION Stop: 11/11/19 08:59 Tramadol HCl (Ultram) 50 mg PO Q4H PRN PRN Reason: Pain Stop: 11/10/19 20:29 Last Admin: 10/13/19 19:17 Dose: 50 mg Documented by: PG Care Time/CCT Total # of Minutes Spent Total Time Spent with Patient: Total time spent is greater than 50% in coordination of care (as documented) at patient's floor/unit and/or counseling patient: Coding Level of Care Code 15685 Subseq Hosp Care Lvl 3 Diagnoses Bacteremia due to Pseudomonas R78.81; B96.5 Intractable nausea and vomiting R11.2 Abdominal pain, diffuse R10.84 Jejunostomy tube in situ Z93.4 On total parenteral nutrition (TPN) Z78.9 Generalized intestinal dysmotility K59.8 Adrenal insufficiency E27.40 POTS (postural orthostatic tachycardia syndrome) I49.8 Electrolyte abnormality E87.8 Venous thromboembolism (VTE) prophylaxis not indicated
[2019-10-15] MEDS ORDERED: FOSAPREPITANT DIMEGLUMINE 115 MG in 0.9 % SODIUM CHLORIDE 111.2 ML IV ONE (13:45)
[2019-10-15] MEDS ORDERED: CALCIUM CARBONATE 500 MG CHEWABLE TAB PO PRN (15:33)
[2019-10-15] MEDS: HYDROCORTISONE SOD 25 MG in SYRINGE 0 ML IV SCH (20:51)
[2019-10-15] MEDS: CETIRIZINE HCL 10 MG TABLET PO SCH ×2 (20:51→21:26)
[2019-10-15] MEDS: KETOROLAC TROMETHAMINE 15 MG/ML VIAL IV PRN (23:07)
[2019-10-16] MEDS: [UNRECOGNIZED DRUG - OTHER] SCH ×4 (00:25→23:23)
[2019-10-16] MEDS: AZELASTINE~ORDER AWAITING ACTION SCH ×4 (00:25→23:22)
[2019-10-16] MEDS: POTASSIUM CHLORIDE 40 MEQ in D5W AND 1/2NSS 1,000 ML IV SCH ×2 (05:30→12:38)
[2019-10-16] MEDS: HYDROCORTISONE SOD 25 MG in SYRINGE 0 ML IV SCH ×3 (05:38→22:03)
[2019-10-16 06:09] LABS: Basophils # (auto) 0.01 K/uL (0-0.2); Basophils % (auto) 0.1 %; Hematocrit (blood only) 30.8 % (37-47); Hemoglobin 10.4 g/dL (12.0-16.0); Immature Granulocytes # (auto) 0.05 K/uL (0.00-0.02); Immature Granulocytes % (auto) 0.6 %; Lymphocytes # (auto) 2.01 K/uL (1.2-3.4); Lymphocytes % (auto) 25.2 %; Mean Corpuscular Hemoglobin 31.8 pg (25-34); Mean Corpuscular Hgb Conc 33.8 g/dL (32-36); Mean Corpuscular Volume 94.2 fL (80-100); Mean Platelet Volume 10.2 fL (7.4-10.4); Monocytes # (auto) 1.04 K/uL (0.11-0.59); Neutrophils # (auto) 4.88 K/uL (1.4-6.5); Neutrophils % (auto) 61.1 %; Platelet Count 243 K/uL (130-400); RDW Coefficient of Variation 11.5 % (11.5-14.5); RDW Standard Deviation 39.3 fL (36.4-46.3); Red Blood Count 3.27 M/uL (4.2-5.4); White Blood Count 7.99 K/uL (4.8-10.8)
[2019-10-16 06:37] LABS: BUN Creatinine Ratio 8.5 (10-20); Calcium 8.5 mg/dl (8.5-10.1); Creatinine Clr Calc Pharmacy 116.7 ml/min; Est GFR (Non-African American) 128.5; Magnesium 1.9 mg/dl (1.8-2.4); Potassium 3.5 mmol/L (3.5-5.1)
[2019-10-16] MEDS: ondansetron HCL 8 MG in DEXTROSE 5% 50 ML IV PRN ×3 (06:38→22:38)
[2019-10-16 07:06] LABS: Phosphorus 2.6 mg/dl (2.5-4.9)
--- NOTE | 2019-10-16 07:34 | Electrocardiogram Report ---
Test Reason : Blood Pressure : / mmHG Vent. Rate : 050 BPM Atrial Rate : 050 BPM P-R Int : 122 ms QRS Dur : 092 ms QT Int : 450 ms P-R-T Axes : 075 090 084 degrees QTc Int : 410 ms Sinus bradycardia with sinus arrhythmia Rightward axis Borderline ECG When compared with ECG of 14-OCT-2019 06:52, Vent. rate has decreased BY 43 BPM Nonspecific T wave abnormality now evident in Lateral leads Confirmed by Mt Melchor ([id number]) on 10/16/2019 7:33:47 AM Referred By: REFERRED SELF Confirmed By:Mt Melchor
[2019-10-16] MEDS: PANTOprazole 40 MG in SYRINGE 0 ML IV SCH (08:49)
[2019-10-16] MEDS: LEVOFLOXACIN/D5W 750 MG/150 ML BAG IV SCH (08:49)
[2019-10-16] MEDS: LORazepam 0.5 MG/1 ML VIAL IV PRN ×2 (08:55→16:03)
[2019-10-16] MEDS: FAMOTIDINE 20 MG in SYRINGE 3 ML IV SCH ×2 (08:55→20:19)
[2019-10-16] MEDS: HYDROmorphone INJ 0.5 MG/0.5 ML SYR IV PRN ×5 (09:04→22:38)
[2019-10-16] MEDS: ONDANSETRON 4 MG OD TAB PO PRN (10:44)
--- NOTE | 2019-10-16 12:00 | Electrocardiogram Report ---
Test Reason : Blood Pressure : / mmHG Vent. Rate : 061 BPM Atrial Rate : 061 BPM P-R Int : 126 ms QRS Dur : 090 ms QT Int : 430 ms P-R-T Axes : 031 029 037 degrees QTc Int : 432 ms Sinus rhythm with marked sinus arrhythmia Otherwise normal ECG When compared with ECG of 15-OCT-2019 07:35, Questionable change in QRS axis Nonspecific T wave abnormality no longer evident in Lateral leads Confirmed by Mt Melchor ([id number]) on 10/16/2019 12:00:17 PM Referred By: REFERRED SELF Confirmed By:Mt Melchor
[2019-10-16] MEDS: LINACLOTIDE 72 MCG CAPSULE PO SCH ×2 (13:14→20:21)
[2019-10-16] MEDS: POLYETHYLENE (MIRALAX) 17 GM PACK PO SCH ×3 (13:15→20:21)
[2019-10-16] MEDS: PYRIDOSTIGMINE BROMIDE 60 MG TAB PO SCH ×3 (13:15→20:21)
--- NOTE | 2019-10-16 14:52 | Hospitalist Progress Note ---
Date of Service October 16, 2019 Assessment & Plan (1) Bacteremia due to Pseudomonas: suspect this was due to infect port, port removed by Dr. Geiger on 10/12 cultures show that Pseudomonas is todd sensitive continue on Levaquin 750mg IV daily, will need minimal 14 days from negative cultures repeat blood cultures 10/14 PICC line placed on 10/12 after port removed no fever, WBC down to normal for two days now after being 27k on admission patient still with a great deal of nausea/vomiting but it is improving slightly -> She had some on my interview today, but was just getting the levofloxacin. (2) Intractable nausea and vomiting: Acute on chronic. per patient and her mom, she always has intense nausea/vomiting with antibiotic use, very sensitive hoping that reducing from three to one antibiotics will help not responding to Zofran, allergic to other options can try Ativan PRN decent response to Emend on 10/12, given again on 10/13 and will give again today hoping that removing source of infection will help symptoms unfortunately she needs the Levaquin for 14 days, so if it is causing symptoms then it will be difficult to manage. Holding TPN today for the n/v caused by her abx. (3) Abdominal pain, diffuse: Mainly lower abdominal which she reports is more unusual for her and most likely related to post operative inflammation Acetaminophen EMERALD Toradol 1st line PRN getting better relief with Dilaudid, pain is better today no obvious infection in abdomen, WBC down to 6k, no fever no vaginal discharge with recent hysterectomy which was done for endometriosis suspect pain is due to abdominal cramping, has chronic dysmotility, unfortunately she cannot take her typical medications by mouth (4) Jejunostomy tube in situ: hooked up for draining upper abdomen (5) On total parenteral nutrition (TPN): Given bacteremia will hold off further nutrition PICC line in place after port removed hold on TPN for now as she gets more nauseated give D5W starting 10/13 consider starting TPN Thursday or Thursday, but only if nausea better, she says that TPN makes her incredibly nauseated (6) Generalized intestinal dysmotility: Acute on chronic senna tea (patient to have her mother to bring this in) Linzess BID Miralax QID Mestinon -- cannot take any of these due to nausea (7) Adrenal insufficiency: stress dose steroids with Hydrocortisone 50mg q8 for today, taper to 25mg q8 tomorrow (8) POTS (postural orthostatic tachycardia syndrome): Noted prior diagnosis of this, HR is stable today (9) Electrolyte abnormality: Mg 2.0 but will give 1gm IV as it will likely drop without replacement Phos low at 2.0, will give KPhos IV replacement repeat tomorrow (10) Venous thromboembolism (VTE) prophylaxis not indicated: Given young age and not on OCP, low likelihood of PE therefore will defer any DVT prophylaxis currently patient gets up several times a day to use restroom Admission and Anticipated Discharge Date Admission Date: October 11, 2019 Subjective Just getting her levofloxacin at my arrival. She reports increasing nausea from this. Otherwise stable. Physical Exam Constitutional: WD/WN, vitals as above Eyes: EOM intact bilaterally; no conjunctival abnormality ENMT: external ear and nose normal, oropharynx normal Neck: trachea midline, no thyromegaly normal visual inspection Respiratory: normal respiratory effort, lungs clear to auscultation no respiratory distress Cardiovascular: RRR, no murmur, no edema Gastrointestinal (Abdomen): Inspection/Auscultation: + abdomen abnormal to inspection and abdomen not distended Musculoskeletal: no cyanosis or clubbing, extremities motor strength 5/5 Skin: no rashes, warm and dry Neurologic: moves all extremities and awake Psychiatric: Orientation: alert, oriented to person and cooperative Results & Data Results & Data ([facility]) Vital Signs (Past 12 Hours) Vital Signs Temp Pulse Pulse Resp BP Pulse Ox 10/16/19 11:48 36.7 C 74 16 119/80 98 10/16/19 08:15 36.3 C L 67 17 131/89 98 10/16/19 07:37 49 L PG Care Time/CCT Total # of Minutes Spent Total Time Spent with Patient: Total time spent is greater than 50% in coordination of care (as documented) at patient's floor/unit and/or counseling patient: Coding Level of Care Code 49421 Subseq Hosp Care Lvl 2 Diagnoses Bacteremia due to Pseudomonas R78.81; B96.5 Intractable nausea and vomiting R11.2 Abdominal pain, diffuse R10.84 Jejunostomy tube in situ Z93.4 On total parenteral nutrition (TPN) Z78.9 Generalized intestinal dysmotility K59.8 Adrenal insufficiency E27.40 POTS (postural orthostatic tachycardia syndrome) I49.8 Electrolyte abnormality E87.8 Venous thromboembolism (VTE) prophylaxis not indicated
[2019-10-16] MEDS ORDERED: FOSAPREPITANT DIMEGLUMINE 115 MG in 0.9 % SODIUM CHLORIDE 111.2 ML IV ONE (16:45)
[2019-10-16] MEDS: CETIRIZINE HCL 10 MG TABLET PO SCH (20:21)
[2019-10-17] MEDS: HYDROmorphone INJ 0.5 MG/0.5 ML SYR IV PRN ×6 (00:36→20:27)
[2019-10-17] MEDS: LORazepam 0.5 MG/1 ML VIAL IV PRN ×3 (02:39→22:08)
[2019-10-17] MEDS: POTASSIUM CHLORIDE 40 MEQ in D5W AND 1/2NSS 1,000 ML IV SCH ×2 (04:51→19:11)
[2019-10-17] MEDS: HYDROCORTISONE SOD 25 MG in SYRINGE 0 ML IV SCH ×3 (05:00→22:08)
[2019-10-17 06:11] LABS: Hematocrit (blood only) 31.8 % (37-47); Hemoglobin 10.8 g/dL (12.0-16.0); Mean Corpuscular Volume 94.1 fL (80-100); Mean Platelet Volume 9.7 fL (7.4-10.4); Platelet Count 248 K/uL (130-400); RDW Coefficient of Variation 11.5 % (11.5-14.5); Red Blood Count 3.38 M/uL (4.2-5.4); White Blood Count 7.27 K/uL (4.8-10.8)
[2019-10-17 06:43] LABS: BUN Creatinine Ratio 4.4 (10-20); Calcium 8.4 mg/dl (8.5-10.1); Creatinine Clr Calc Pharmacy 104.4 ml/min; Est GFR (African American) 147.2; Magnesium 1.9 mg/dl (1.8-2.4); Phosphorus 3.1 mg/dl (2.5-4.9); Potassium 3.2 mmol/L (3.5-5.1)
[2019-10-17] MEDS: [UNRECOGNIZED DRUG - OTHER] SCH ×3 (07:42→23:09)
[2019-10-17] MEDS: AZELASTINE~ORDER AWAITING ACTION SCH ×3 (07:42→23:09)
[2019-10-17] MEDS: ondansetron HCL 8 MG in DEXTROSE 5% 50 ML IV PRN ×2 (08:36→17:39)
[2019-10-17] MEDS: POTASSIUM CHLORIDE / WTR 10 MEQ/100 ML PLCT IV SCH ×2 (08:55→09:29)
[2019-10-17] MEDS: FAMOTIDINE 20 MG in SYRINGE 3 ML IV SCH ×2 (08:55→20:26)
[2019-10-17] MEDS: PANTOprazole 40 MG in SYRINGE 0 ML IV SCH (08:55)
[2019-10-17] MEDS: POLYETHYLENE (MIRALAX) 17 GM PACK PO SCH ×3 (09:23→20:27)
[2019-10-17] MEDS: LINACLOTIDE 72 MCG CAPSULE PO SCH ×2 (09:23→20:26)
[2019-10-17] MEDS: PYRIDOSTIGMINE BROMIDE 60 MG TAB PO SCH ×3 (09:23→20:26)
[2019-10-17] MEDS: LEVOFLOXACIN/D5W 750 MG/150 ML BAG IV SCH (09:24)
[2019-10-17] MEDS ORDERED: SOD PHOSPHATE/SOD BIPHOSPHATE ENEMA 132 ML BTL PR PRN (13:18)
[2019-10-17] MEDS: DICYCLOMINE HCL 10 MG CAP PO PRN (13:57)
--- NOTE | 2019-10-17 14:44 | Hospitalist Progress Note ---
Date of Service October 17, 2019 Assessment & Plan (1) Bacteremia due to Pseudomonas: Likely 2nd to port infection. s/p removal by Dr Geiger on 10/13/19. repeat blood cultures 10/15/19 thus far negative. will change daily levaquin to cipro 400mg IV BID. if tolerates can change to via J-tube or PO later in her stay. if can't tolerate abx enterally they can be finished via RUE PICC line (PICC placed 10/12). no evidence that pseudomonas was in origin or pulmomary in origin. (2) Intractable nausea and vomiting: Acute on chronic. TPN, antibiotics, etc all contribute to nausea. Patient & her mother state she typically does not do well (nausea) with levaquin. s/p Emend daily on 10/12, 10/13, 10/14, and 10/15. has 10-hour half-life -- will skip dose today. continue zofran and ativan prn. appreciate GI support. (3) Abdominal pain, diffuse: Likely due to recent hysterectomy, constipation, and chronic motility issues. Will reschedule Acetaminophen. Taking copious amounts of dilaudid; will need to transition her off this soon to oral pain meds. (4) Jejunostomy tube in situ: G-tube portion is attached to gravity bag. J-tube portion not being used for feeds but can be used for meds, etc. Uncertain why it is not used routinely for feedings. (5) On total parenteral nutrition (TPN): has RUQ picc in place. port removed. if blood cultures remain negative through Thursday then resume TPN then. long-term access will need to be discussed. (6) Generalized intestinal dysmotility: cont senna daily cont Linzess BID cont Miralax TID Mestinon TID add fleets enema prn (7) Adrenal insufficiency: cont stress dose steroids with Hydrocortisone 25mg q8 today reduce dose tomorrow (8) Hypokalemia: give additional 20meq of KCL riders today mag noted to be normal has 40meq of KCL in basal fluids (9) Endometriosis: [place] [facility] [place] severe endometriosis (10) DVT prophylaxis: given recent surgery in September and significant time in the bed -- start heparin 5000 BID mother extensively updated 10/16 Admission and Anticipated Discharge Date Admission Date: October 11, 2019 Subjective patient resting during my visit. her mother was at bedside. mother with multiple questions including plan of care. Pilar continues with dry heaves at times and nausea but improved from several days ago. No elizabeth vomiting. No bowel movement in "days" (perhaps longer than a week). She often uses enemas at home to produce a bowel movement. Unable to take but a few sips of clears at times. Had been using TPN at home but not every day. TPN gives her nausea. She also believes that the levaquin causes nausea as well. No rash. Had laparoscopic hysterectomy about 3 weeks ago at [facility]. Ovaries left intact. Had endometrial implants on the bowel and bladder. tele overnight wnl. Review of Systems Constitutional: no fever Respiratory: no cough and no dyspnea Cardiovascular: no chest pain Gastrointestinal: + abdominal pain (lower abdomen ) Physical Exam Constitutional: + thin; + not well developed, + not well nourished, no acute distress and no altered mental status ENMT: external ear and nose normal, oropharynx normal Respiratory: normal respiratory effort, lungs clear to auscultation Cardiovascular: Rate/Rhythm: regular rate and regular rhythm Heart Sounds: normal S1 and normal S2; no murmur Vessels: posterior tibial pulses present and dorsalis pedis pulses present; no JVD Extremities: no edema Gastrointestinal (Abdomen): G-J tube in place; entry site clean; previous hysterectomy scars present on abdominal wall; no distension; minimal tenderness lower quadrants Skin: no rashes, warm and dry + pallor Psychiatric: Orientation: alert and oriented x 3 Affect: + depressed affect Results & Data Results & Data ([facility]) Vital Signs (Past 12 Hours) Vital Signs Temp Pulse Resp BP Pulse Ox 10/17/19 11:22 36.7 C 85 18 106/71 98 10/17/19 07:56 36.7 C 66 18 107/71 97 10/17/19 04:00 36.7 C 67 16 125/88 99 Laboratory Results Laboratory Results - last 24 hr 10/17/19 10/17/19 06:00 06:00 WBC 7.27 RBC 3.38 L Hgb 10.8 L Hct 31.8 L MCV 94.1 MCH 32.0 MCHC 34.0 RDW Std Deviation 39.0 RDW Coeff of Tim 11.5 Plt Count 248 MPV 9.7 Sodium 141 Potassium 3.2 L Chloride 107 Carbon Dioxide 31 Anion Gap 3.0 BUN 3 L Creatinine 0.57 L Est Cr Clr Drug Dosing 104.4 Est GFR ( Amer) 147.2 Est GFR (Non-Af Amer) 127.0 BUN/Creatinine Ratio 4.4 L Glucose 92 Calcium 8.4 L Phosphorus 3.1 Magnesium 1.9 PG Care Time/CCT Total # of Minutes Spent Total Time Spent with Patient: Total time spent is greater than 50% in coordination of care (as documented) at patient's floor/unit and/or counseling patient: Coding Level of Care Code 85425 Subseq Hosp Care Lvl 3 Diagnoses Bacteremia due to Pseudomonas R78.81; B96.5 Intractable nausea and vomiting R11.2 Abdominal pain, diffuse R10.84 Jejunostomy tube in situ Z93.4 On total parenteral nutrition (TPN) Z78.9 Generalized intestinal dysmotility K59.8 Adrenal insufficiency E27.40 Hypokalemia E87.6 Endometriosis N80.9 DVT prophylaxis Z29.9
[2019-10-17] MEDS: CETIRIZINE HCL 10 MG TABLET PO SCH (20:26)
[2019-10-17] MEDS: HEPARIN SOD 5,000 UNIT/0.5 ML VIAL SQ SCH (20:27)
[2019-10-18] MEDS: HYDROmorphone INJ 0.5 MG/0.5 ML SYR IV PRN ×4 (00:06→17:50)
[2019-10-18] MEDS: LORazepam 0.5 MG/1 ML VIAL IV PRN ×3 (04:53→21:19)
[2019-10-18] MEDS: HYDROCORTISONE SOD 25 MG in SYRINGE 0 ML IV SCH ×2 (05:58→14:13)
[2019-10-18 07:04] LABS: BUN Creatinine Ratio 6.4 (10-20); Calcium 8.9 mg/dl (8.5-10.1); Creatinine Clr Calc Pharmacy 106.2 ml/min; Est GFR (African American) 148.1; Est GFR (Non-African American) 127.8; Potassium 3.5 mmol/L (3.5-5.1)
[2019-10-18] MEDS: ondansetron HCL 8 MG in DEXTROSE 5% 50 ML IV PRN (07:36)
[2019-10-18] MEDS: [UNRECOGNIZED DRUG - OTHER] SCH ×3 (08:11→23:58)
[2019-10-18] MEDS: AZELASTINE~ORDER AWAITING ACTION SCH ×3 (08:11→23:58)
[2019-10-18] MEDS: POTASSIUM CHLORIDE 40 MEQ in D5W AND 1/2NSS 1,000 ML IV SCH (08:21)
[2019-10-18] MEDS: PANTOprazole 40 MG in SYRINGE 0 ML IV SCH (08:22)
[2019-10-18] MEDS: FAMOTIDINE 20 MG in SYRINGE 3 ML IV SCH (08:22)
[2019-10-18] MEDS: CIPROFLOXACIN / D5W 400 MG/200 ML BAG IV SCH ×2 (08:22→20:11)
[2019-10-18] MEDS: HEPARIN SOD 5,000 UNIT/0.5 ML VIAL SQ SCH ×2 (08:24→20:11)
[2019-10-18] MEDS: LINACLOTIDE 72 MCG CAPSULE PO SCH ×2 (08:25→19:35)
[2019-10-18] MEDS: PYRIDOSTIGMINE BROMIDE 60 MG TAB PO SCH ×3 (08:25→19:35)
[2019-10-18] MEDS: POLYETHYLENE (MIRALAX) 17 GM PACK PO SCH ×3 (08:26→19:35)
[2019-10-18] MEDS: SENNA 8.8 MG/5 ML UDP GT SCH (08:27)
[2019-10-18] MEDS ORDERED: NON-FORMULARY PATIENT'S OWN MED PRN (12:16)
[2019-10-18] MEDS ORDERED: TPN/PPN CONSULT PHARMACY PRN (12:18)
[2019-10-18] MEDS ORDERED: OXYCODONE HCL IR 5 MG TAB (IMMEDIATE RELEASE) PO PRN (12:24)
[2019-10-18] MEDS ORDERED: TRIMETHOBENZAMIDE HCL PO PRN (12:40)
[2019-10-18] MEDS ORDERED: DEXTROSE 10% 1,000 ML IV PRN (12:48)
--- NOTE | 2019-10-18 13:02 | Hospitalist Progress Note ---
Date of Service October 18, 2019 Assessment & Plan (1) Bacteremia due to Pseudomonas: Likely 2nd to port infection. s/p removal by Dr Geiger on 10/13/19. repeat blood cultures 10/15/19 cont to be negative. changing daily levaquin to cipro 400mg IV BID today. at discharge- if she can tolerate- can change to PO or j-tube cipro and complete course. if she feels she can't tolerate then will need HH to set up IV cipro. no evidence that pseudomonas was in origin or pulmonary in origin. (2) Intractable nausea and vomiting: Acute on chronic. TPN, antibiotics, etc all contribute to nausea. Patient & her mother state she typically does not do well (nausea) with levaquin. s/p Emend daily on 10/12, 10/13, 10/14, and 10/15. continue zofran and ativan prn. I added home stock of trimethobenzamide to be used prn. this is overall much improved. I encouraged her to transition off IV dilaudid as this is affecting motility and likely making her nausea worse and contributing to severe constipation. appreciate GI consult earlier this admission. will need f/u with GI at [facility] post-d/c. (3) Abdominal pain, diffuse: Likely due to recent hysterectomy, constipation, and chronic motility issues. Soft, benign abdomen on exam today. Transition off IV dilaudid to either PO/j-tube oxycodone or tramadol. Treat constipation. (4) Jejunostomy tube in situ: G-tube portion is attached to gravity bag. J-tube portion not being used for feeds but can be used for meds, etc. See HPI re: j-tube. (5) On total parenteral nutrition (TPN): has RUQ picc in place. port removed. since repeat blood cultures remain negative can resume TPN today. will use home formula. long-term access will need to be discussed post-d/c with a general surgeon. (6) Generalized intestinal dysmotility: cont senna daily cont Linzess BID cont Miralax TID Mestinon TID fleets enema prn limit narcotics (7) Adrenal insufficiency: cont stress dose steroids but reduce to 25mg BID today (8) Hypokalemia: improved stop IV supplementation will have KCL in TPN (9) Endometriosis: s/p hysterectomy in September 2019 at [facility] 2nd to severe endometriosis (10) Candidiasis of mouth and esophagus: nystatin chris - 5cc q6h swish/spit (11) DVT prophylaxis: heparin 5000 BID stop basal fluids tonight when TPN gets hung ambulate today mother extensively updated 10/16 and 10/17 at bedside hopefully d/c home next 1-2 days Admission and Anticipated Discharge Date Admission Date: October 11, 2019 Subjective tele normal overnight. patient resting comfortably during the visit today. mother again at bedside. she reports no emesis. nausea improved. taking some clears. thinks being off levaquin has helped nausea. willing to start TPN today. states that j-tube was last used for enteral feedings about 2 years ago. while on enteral feedings she lost weight and therefore was changed to TPN. mother has bottle of trimethobenzamide for N/V and wants Pilar to have access to this on prn basis. Pilar and I spoke about her use of IV dilaudid for pain and she is willing to transition away from such and try oral pain meds (or put thru j-tube). Review of Systems Constitutional: no fever and no chills Respiratory: no dyspnea Cardiovascular: no chest pain Gastrointestinal: + abdominal pain, + nausea and + constipation (still no bowel movement ); no vomiting Physical Exam Constitutional: + thin; + not well developed, + not well nourished, no acute distress and no altered mental status but looks better today ENMT: Mouth: + tongue abnormality (possible thrush plaques) Respiratory: normal respiratory effort, lungs clear to auscultation Cardiovascular: Rate/Rhythm: regular rate and regular rhythm Heart Sounds: normal S1 and normal S2; no murmur Vessels: posterior tibial pulses present and dorsalis pedis pulses present; no JVD Extremities: + vascular access device (right arm PICC - clean, intact); no edema Gastrointestinal (Abdomen): normal bowel sounds, soft, nontender, no he patosplenomegaly g-j tube clean, intact Skin: no rashes, warm and dry + pallor Psychiatric: Orientation: alert and oriented x 3 Affect: + depressed affect Results & Data Results & Data ([facility]) Vital Signs (Past 12 Hours) Vital Signs Temp Pulse Resp BP Pulse Ox 10/18/19 11:24 36.6 C 74 16 97/67 L 98 06/02/20 07:26 36.6 C 63 16 101/68 97 10/18/19 04:00 36.5 C 73 18 102/68 97 Laboratory Results Laboratory Results - last 24 hr 10/18/19 06:12 Sodium 140 Potassium 3.5 Chloride 104 Carbon Dioxide 31 Anion Gap 5.0 BUN 4 L Creatinine 0.56 L Est Cr Clr Drug Dosing 106.2 Est GFR ( Amer) 148.1 Est GFR (Non-Af Amer) 127.8 BUN/Creatinine Ratio 6.4 L Glucose 99 Calcium 8.9 PG Care Time/CCT Total # of Minutes Spent Total Time Spent with Patient: Total time spent is greater than 50% in coordination of care (as documented) at patient's floor/unit and/or counseling patient: Coding Level of Care Code 68576 Subseq Hosp Care Lvl 3 Diagnoses Bacteremia due to Pseudomonas R78.81; B96.5 Intractable nausea and vomiting R11.2 Abdominal pain, diffuse R10.84 Jejunostomy tube in situ Z93.4 On total parenteral nutrition (TPN) Z78.9 Generalized intestinal dysmotility K59.8 Adrenal insufficiency E27.40 Hypokalemia E87.6 Endometriosis N80.9 Candidiasis of mouth and esophagus B37.81; B37.0 DVT prophylaxis Z29.9
--- NOTE | 2019-10-18 13:45 | Pharmacy Report ---
Pharmacy PN Initial Consult - Date of Service October 18, 2019 - Scope Pharmacy has been consulted to manage parenteral nutrition orders and order appropriate labs. As part of the Nutrition Support Team guidelines, pharmacy will work in conjunction with dietary when determining the patients caloric needs. - Subjective The patient is a 29 year old F admitted on 10/11/19 18:24 for INTRACTABLE NAUSEA/VOMITING, ABDOMINAL PAIN. Patient receives chronic TPN as an outpatient. - Objective Height: 5 ft 6 in Weight: 44.2 kg Intake & Output (Last 24Hrs): Intake & Output 10/16/19 10/17/19 10/18/19 10/19/19 06:59 06:59 06:59 06:59 Intake Total 2452.2 / 2452.2 2463.2 / 2463.2 1434.667 / 4308.050 5630 / 1274 Output Total 1900 / 1900 1350 / 1350 400 / 400 Balance 552.2 / 552.2 1113.2 / 1113.2 1034.667 / 0657.606 1932 / 1274 Weight 44.6 kg 44.2 kg 44.2 kg Laboratory Data (Last 24 Hrs):: 10/18/19 06:12 Sodium 140 Potassium 3.5 Chloride 104 Carbon Dioxide 31 BUN 4 L Creatinine 0.56 L Glucose 99 Calcium 8.9 Nutrition Assessment:: Please refer to the Notes section of the EMR for the most recent diabetic educator note. - Assessment * Patient with intractable nausea and vomiting - TPN has been held since admission on 10/11/19. * Will give TPN over 24 hours in order to decrease rate and hopefully increase patient tolerability * Will use most recent outpatient TPN order as a guide for initial dosing * Discussed case with diabetic educator - will increase dextrose gradually given proclivity for electrolyte abnormalities in the past * ---Has been receiving D5W w/ 40 mEq of KCl @80 mL/hr - approximately 96 g of dextrose/24 hours. Will d/c at time of TPN initiation. * Patient with bacteremia caused by Pseudomonas aeruginosa likely secondary to infected port, which has been removed * Receiving ciprofloxacin 400 mg IV q12h - Plan For day 1 of PN administration, the following will be ordered: Macronutrients Amino acids 90 grams/day Dextrose 100 grams/day Lipids 50 grams/day Micronutrients Sodium acetate 80 mEq Potassium phosphate 30 mMol Potassium acetate 75 mEq Magnesium sulfate 12.18 mEq Calcium gluconate 13.95 mEq Trace Elements 1 mL Additional additives: folic acid 1 mg, thiamine 100 mg, and famotidine 20 mg *Patient has allergy to MVI - will not include in TPN formulation Total volume 1500 mL to be infused over 24 hrs will provide 1200 kcal/day Final osmolarity 1181 mOsm/L (maximum for PPN is 900 mOsm/L) - will be given via central line Labs to be ordered per PN order protocol Pharmacy will follow and adjust parenteral nutrition orders on a daily basis. Thank you.
[2019-10-18] MEDS: NYSTATIN SUSP 500,000 U/5 ML UDC PO SCH ×3 (14:12→19:36)
[2019-10-18] MEDS ORDERED: Custom Central Pn 1,500 ML in TPN BAG 0 ML IV SCH (16:00)
[2019-10-18] MEDS: CETIRIZINE HCL 10 MG TABLET PO SCH (19:36)
[2019-10-19] MEDS: HYDROmorphone INJ 0.5 MG/0.5 ML SYR IV PRN (00:46)
[2019-10-19] MEDS: LORazepam 0.5 MG/1 ML VIAL IV PRN (02:23)
[2019-10-19] MEDS ORDERED: HYDROCORTISONE SOD 25 MG in SYRINGE 0 ML IV SCH (06:00)
[2019-10-19 07:28] LABS: BUN Creatinine Ratio 24.6 (10-20); Creatinine Clr Calc Pharmacy 94.8 ml/min; Est GFR (Non-African American) 121.7; Magnesium 2.4 mg/dl (1.8-2.4); Phosphorus 5.2 mg/dl (2.5-4.9); Potassium 3.8 mmol/L (3.5-5.1)
[2019-10-19] MEDS: AZELASTINE~ORDER AWAITING ACTION SCH (07:55)
[2019-10-19] MEDS: [UNRECOGNIZED DRUG - OTHER] SCH (07:56)
[2019-10-19] MEDS ORDERED: CIPROFLOXACIN 500 MG TAB PO SCH (09:00)
[2019-10-19] MEDS: PYRIDOSTIGMINE BROMIDE 60 MG TAB PO SCH (09:01)
[2019-10-19] MEDS: POLYETHYLENE (MIRALAX) 17 GM PACK PO SCH (09:01)
[2019-10-19] MEDS: PANTOprazole 40 MG in SYRINGE 0 ML IV SCH (09:02)
[2019-10-19] MEDS: NYSTATIN SUSP 500,000 U/5 ML UDC PO SCH (09:03)
[2019-10-19] MEDS: LINACLOTIDE 72 MCG CAPSULE PO SCH (09:03)
[2019-10-19] MEDS: SENNA 8.8 MG/5 ML UDP GT SCH (09:03)
[2019-10-19] MEDS: HEPARIN SOD 5,000 UNIT/0.5 ML VIAL SQ SCH (09:04)
[2019-10-19] MEDS: ONDANSETRON 4 MG OD TAB PO PRN (09:12)
--- NOTE | 2019-10-19 12:53 | Discharge Summary ---
Date of Service date of admission - October 11, 2019 date of discharge - October 19, 2019 Admission HPI Per Admitting Provider Pilar Garcia is a 29 year old female with multiple chronic medical issues mainly revolving around her generalized intestinal dysmotility who presents to the ER with intractable nausea, vomiting and abdominal pain. She notes having increased dysmotility issues since her hysterectomy 2 weeks ago for which she has been increasing her MiraLAX dosing and outpatient enemas without a successful bowel movement in the last 3 days (at that time is was hard and painful). She notes her GI specialist at [facility] was planning on a colonoscopy for fecal evacuation sometime next week. She also notes increased lower abdominal pain since this operation which has not been getting worse up until today but also not improving, more severe when she has an enema. More acutely today she had her port accessed as per routine for her chronic TPN and 2 hours after this felt suddenly nauseous and has not stopped vomiting since then with sudden increase in her abdominal pain. Associated chills and shaking. Current pain in lower abdomen 4/10 after toradol and morphine givne in ER. Severeity 9/10 on arrival in ER. She notes she always has some nausea but the intractable vomiting she can usually control with her home medications. She denies any vaginal discharge since the operation. She has been taking the occasional tramadol for her lower abdominal pain but limiting use as she correlates opaites with worsening of her dysmotility issues. Pain is different on this occasional as a lot more severe. Intense abdominal pain and presyncope when doing this. Today having chills and shaking in addition. Currently lower abdominal pain 4/10, 9/10 when she came in, slowly progressing since the operation. Nausea and vomiting always has nausea but contanstant today. She denies shortness of breath, chest pain, cough. No change in taste or smell. Per her usual bowel regimen: Normally takes miralax 1-2 a day. Since the operation advised to take 3-4/day. Last took this yesterday. Fleet enemas usually once/day. Since surgery advised to use 2-3 enemas fleet enemas a day, causing a lot of pain. Mestinon dosing not changed. Water enema once a day (for a few months) Senna tea. Usual nutrition is with TPN but she does intermittently eat some foods. Principal Diagnosis pseudomonas septicemia/bacteremia likely 2nd to port infection Discharge Exam Constitutional + thin; + not well developed, + not well nourished, no acute distress and no altered mental status ENMT external ear and nose normal, oropharynx normal Mouth: + tongue abnormality (possible thrush plaques) Respiratory normal respiratory effort, lungs clear to auscultation Cardiovascular Rate/Rhythm: regular rate and regular rhythm Heart Sounds: normal S1 and normal S2; no murmur Vessels: posterior tibial pulses present and dorsalis pedis pulses present; no JVD Extremities: + vascular access device (right arm PICC - clean, intact); no edema Chest (Breasts) Chest: + vascular access device or port (Former port site left upper chest - sutures intact, no drainage/erythema ) Gastrointestinal (Abdomen) normal bowel sounds, soft, nontender, no hepatosplenomegaly G-J tube clean Skin no rashes, warm and dry + pallor Psychiatric Orientation: alert and oriented x 3 Affect: + depressed affect Discharge Data Allergies Allergy/AdvReac Type Severity Reaction Status Date / Time amoxicillin Allergy Intermediate RASH Verified 10/11/19 15:02 Bactrim Allergy Intermediate RASH Verified 08/13/17 12:16 cefazolin Allergy Intermediate rash Verified 10/11/19 15:02 Cephalosporins Allergy Intermediate HIVES Verified 10/11/19 15:02 clavulanic acid Allergy Intermediate HIVES Verified 10/11/19 15:02 Penicillins Allergy Intermediate HIVES Verified 10/11/19 15:02 prochlorperazine Allergy Intermediate HIVES Verified 10/11/19 15:02 promethazine Allergy Intermediate hives, Verified 10/11/19 15:02 throat swelling sulfamethoxazole Allergy Intermediate RASH Verified 10/11/19 15:02 sumatriptan Allergy Intermediate RASH Verified 10/11/19 15:02 trimethoprim Allergy Intermediate RASH Verified 10/11/19 15:02 metoclopramide AdvReac Severe anxiety/ Verified 10/11/19 15:02 jittery diphenhydramine AdvReac Intermediate Tachycardia, Verified 10/11/19 15:02 Severe Anxiety WITH IV ONLY erythromycin base AdvReac Intermediate GI SYMPTOMS Verified 10/11/19 15:02 citalopram [From Celexa] AdvReac Unknown Verified 10/11/19 15:02 MULTIVITAMIN Allergy Intermediate Unknown Uncoded 10/11/19 15:02 Consultations Consult Gastroenterology - [facility] GI Consult General Surgery - Dawson Geiger MD nutrition Procedures Performed Operation Date: 10/13/19 19:45 Actual Procedures p Infusaport Removal(Left) - Dawson Geiger MD PICC line placement - RUE TPN Ordered Studies CT abd pelvis IV con IMPRESSION: 1. Status post hysterectomy. Mild thickening of the vaginal morris with a trace amount of fluid within the vagina. This is nonspecific and could be due to the recent postoperative change. An infectious process cannot be excluded on the basis of imaging alone. 2. Gastrostomy tube terminates in the second portion of duodenum. 3. Mild thickening of the gastric antrum, unchanged. 4. Prior cholecystectomy and appendectomy. Hospital Course (1) Bacteremia due to Pseudomonas: Likely 2nd to port infection. Blood cultures from admission grew todd-sensitive pseudomonas. s/p removal of port by Dr Geiger on 10/13/19. repeat blood cultures 10/15/19 remained negative ensuring resolution of bacteremia. The port tip culture did not grow any pathogens however. Antibiotics were narrowed to levaquin, then ultimately cipro. She tolerated the cipro without signs of adverse reaction/allergy and had stable QTc on EKG. The cipro was ultimately made PO and she continued to tolerate this. She will complete 9 days in total of cipro at home (total course 14 days). She can take PO or give via J-tube. There was no evidence that pseudomonas was in origin or pulmonary in origin. (2) Intractable nausea and vomiting: Acute on chronic. TPN, antibiotics, motility issues, recent surgery, bacteremia, etc all contribute to her nausea. Patient & her mother state she typically does not do well (nausea) with levaquin. s/p Emend daily on 10/12, 10/13, 10/14, and 10/15. Emend indeed did help with symptoms. She will use zofran and trimethobenzamide to be used prn for chronic symptoms at home. Vomiting did ultimately stop, and nausea improved to a point where she could tolerate her oral meds and take some liquid nutrition. Casper recommendations were made by [facility] GI while hospitalized. Will need f/u with GI at [facility] post-discharge as scheduled. Sees a Dr. Stanton Lantigua, office # [phone], at [facility]. (3) Abdominal pain, diffuse: Likely due to recent hysterectomy, constipation, and chronic motility issues. Soft, benign abdomen on exam throughout her stay. She took copious amounts of IV dilaudid which likely contributed to her nausea and constipation issues. (4) Jejunostomy tube in situ: G-tube portion was attached to gravity bag during the stay to help with na usea. Output was not severe/excessive. J-tube portion not being used for feeds but can be used for meds, etc. See HPI re: j-tube. (5) On total parenteral nutrition (TPN): has RUQ picc in place. port removed. once bacteremia was confirmed to be resolved via repeat blood cultures TPN was resumed using home formula. she will continue home TPN as previous. long-term IV/port access will need to be discussed post-d/c with a general surgeon. (6) Generalized intestinal dysmotility: cont senna daily cont Linzess BID cont Miralax TID Mestinon TID fleets enema prn limit narcotics (7) Adrenal insufficiency: received IV stress dose steroids during her stay. she will continue / complete a steroid taper at home and ultimately resume hydrocortisone 15mg qam and 10mg qafternoon. (8) Hypokalemia: improved/resolved with IV supplementation (9) Endometriosis: s/p hysterectomy in [address] [facility] endometriosis was severe with bowel/bladder involvement GI at [facility] feels that endometriosis may have been contributing to chronic GI issues surgical sites were completely healed on exam during this admission (10) Candidiasis of mouth and esophagus: nystatin chris - 5cc q6h swish/spit Total Time Total Time Spent Total Time Spent (In Minutes): 40 Total Time Includes: Examination of the Patient, Discharge Planning and Medication Reconciliation Discharge Plan Discharge Items Patient Disposition: Home - Self-Care Reason For Visit: INTRACTABLE NAUSEA/VOMITING, ABDOMINAL PAIN Discharge Diagnosis: 1. port infection 2nd to pseudomonas bacteria - resolved; port removed by Dr Geiger repeat blood cultures from 10/15/2019 negative thus infection in blood is resolved 2. nausea/vomiting - acute on chronic; acutely the GI symptoms were likely induced by #1 above 3. adrenal insufficiency 4. thrush (yeast infection of tongue) Activity: As commented below Activity Comment: gradually increase activities over the next 3-5 days Lifting Comment: no heavy lifting with right arm due to PICC line Bathing Comment: see recommendations from surgery; keep PICC line clean/dry during showers Non-emergency contact: Primary Care Provider, Surgeon and Home Economics Teacher Call non-emergency contact if: you have any medication questions, your symptoms worsen, your pain is not controlled, your pain is worsening, your pain is unusual for you, your pain is concerning for you, you have a fever, your wound has increased redness, your wound has increased drainage and your wound pain has increased Follow-up/Referrals: Mariah Addison DO [Primary Care Provider] - (see Dr Addison as scheduled next week) Dawson Geiger MD [Physician] - (see Dr Geiger in 9-10 days for suture removal) Diet: Full liquid Addtl Attending Provider Instructions: You were treated for port infection that was due to pseudomonas. The port was removed by surgery and repeat blood cultures later in the stay were negative ensuring that the bloodstream infection had cleared. You had significant nausea and vomiting likely exacerbated by your port infection/bloodstream infection. You received IV steroids, IV antibiotics, and nausea medication. TPN was resumed later in your stay. Recommendations - 1. cipro 500mg twice daily for 9 more days; start TONIGHT, 10/19/19. You can take this by mouth or use your j-tube. This is your antibiotic. 2. for abdominal pain - tramadol 50mg every 6 hours as needed. 3. for constipation - continue your usual medications and enemas as needed. 4. adrenal insufficiency - take hydrocortisone as follows - * 10/19/19 -- afternoon -- take 10mg as usual * 10/20/19 AM -- take 25mg * 10/20/19 afternoon -- take 10mg as usual * 10/21/19 AM -- take 20mg * 10/21/19 afternoon -- take 10mg as usual * 10/22/19 AM -- take 15mg as usual * 10/22/19 afternoon -- take 10mg as usual * 10/22 and after -- 15mg AM, 10mg afternoon as usual 5. thrush - nystatin solution 5cc by mouth 4 times a day -- swish and spit. Do this for 7-10 days. 6. keep your Right arm PICC line clean/dry; ok to shower but keep covered and dry 7. you can talk to the surgeon about the timing of a future port placement 8. keep any appointments with your GI doctor at [facility] and your safety sitter at [facility] 9. see separate section for instructions on your former port incision 10. diet - liquids/solids as tolerated/desired; if possible try to eat yogurt daily while on the the cipro 11. continue TPN via PICC line follow-up - see separate section return to [facility] if - * you have fever over 100.4 degrees * you have intractable nausea or vomiting * you have worsening abdominal pain * you have drainage or redness from the port site * you have drainage or redness or swelling/pain around your PICC line site * severe diarrhea occurs * any other concerns Addtl Hoe Worker Provider Instructions: Surgical discharge instructions from Dr Geiger: - May shower. No submerging incision underwater for 2 weeks or until compl etely healed. - Keep area covered with small dressing and change daily - Follow-up in surgical office for suture removal in 10 days. Pending Studies at Discharge: No Stand-Alone Forms: [facility], Smoking Cessation Medications and DC Order Prescriptions: New ciprofloxacin HCl 500 mg Tablet 500 mg PO BID 9 Days Qty: 18 RF: 0 nystatin 100,000 unit/mL Suspension 5 ml PO QID 10 Days Qty: 200 RF: 0 hydrocortisone 10 mg tablet 10 mg PO .afternoon Qty: 30 RF: 0 Continued famotidine [Pepcid] 20 mg tablet 20 mg PO BID RF: 0 senna leaf Tea 180 ml PO DAILY PRN (Reason: Constipation) RF: 0 Emgality Syringe 120 mg/mL syringe 120 mg SQ MONTHLY RF: 0 cetirizine [Zyrtec] 10 mg Tablet 10 mg PO HS RF: 0 ondansetron HCl [Zofran] 4 mg Tablet 4 mg PO Q6H PRN (Reason: Nausea) RF: 0 hyoscyamine sulfate [Levsin/SL] 0.125 mg Tablet, Sublingual 0.125 mg SUBLINGUAL Q4H PRN (Reason: Abdominal Discomfort) RF: 0 albuterol sulfate [ProAir HFA] 90 mcg/actuation Hfa Aerosol Inhaler 2 puff INHALATION QID PRN (Reason: Shortness Of Breath Or Wheezing) RF: 0 dicyclomine 10 mg Capsule 10 - 20 mg PO Q6H PRN (Reason: Abdominal Pain) RF: 0 azelastine 0.15 % (205.5 mcg) [place],Non-Aerosol 1 - 2 spray INTRANASAL BID PRN (Reason: Congestion) RF: 0 Linzess 145 mcg Capsule 145 mcg PO BID RF: 0 tretinoin [Retin-A] 0.05 % cream 1 applic TOPICAL UD RF: 0 polyethylene glycol 3350 [Miralax] 17 gram Powder In Packet 17 g PO TID Qty: 0 RF: 0 pantoprazole [Protonix] 40 mg tablet,delayed release (DR/EC) 40 mg PO QAM RF: 0 pyridostigmine bromide [Mestinon] 60 mg tablet 30 mg PO TID RF: 0 hydrocortisone [Cortef] 10 mg tablet 15 mg PO QAM RF: 0 trimethobenzamide 300 mg capsule 300 mg PO UD PRN (Reason: Nausea) RF: 0 Changed tramadol 50 mg tablet 50 mg PO Q6H PRN (Reason: Pain) Qty: 20 RF: 0 Discharge Orders: Discharge Order (Routine); Ordered 10/19/19 Ordered By: Praneeth Liu Admission Data Admit Date/Time: 10/11/19 18:24 Attending Provider: Praneeth Liu Admit Provider: Praneeth Romero Primary Care Provider: Mariah Addison Other Providers: Candido Fernández ; Man Phillips ; Gina Jimenez ; Bhanu Beck ; Madonna Soler ; Jorge Godwin ; Arden Ahumada ; Delmis Montalvo ; Rylan Sams ; Debo Harris ; Sukhjinder Ribeiro Jr ; Dawson Geiger ; Bibiana Nichols ; Jordin Rodgers Other Interventions: Discharge Summary Assessment (RN) Last Done: 10/19/19 13:19 DC Date/Time DO NOT enter until pt leaves facility: 10/19/19 13:59 Coding Level of Care Code D/C Day Management >30 mins Diagnoses Bacteremia due to Pseudomonas R78.81; B96.5 Intractable nausea and vomiting R11.2 Abdominal pain, diffuse R10.84 Jejunostomy tube in situ Z93.4 On total parenteral nutrition (TPN) Z78.9 Generalized intestinal dysmotility K59.8 Adrenal insufficiency E27.40 Hypokalemia E87.6 Endometriosis N80.9 Candidiasis of mouth and esophagus B37.81; B37.0
[2019-10-19] MEDS ORDERED: Custom Central Pn 1,500 ML in TPN BAG 0 ML IV SCH (16:00)
--- NOTE | 2019-10-20 12:33 | Electrocardiogram Report ---
Test Reason : Blood Pressure : / mmHG Vent. Rate : 082 BPM Atrial Rate : 082 BPM P-R Int : 142 ms QRS Dur : 080 ms QT Int : 378 ms P-R-T Axes : 048 035 047 degrees QTc Int : 441 ms Normal sinus rhythm Normal ECG When compared with ECG of 16-OCT-2019 07:58, No significant change was found Confirmed by [place] ([id number]) on 10/20/2019 12:32:58 PM Referred By: REFERRED SELF Confirmed By:[facility]
== END 2019-10-19 13:59 | disposition home or self-care (01) | DRG 314 ==
LOC: ED 13:29 → SUATTDRO 18:24 → 2N 18:24

== ENCOUNTER 2020-02-07 13:36 | Inpatient (IN) ==
[2020-02-07] MEDS ORDERED: ONDANSETRON INJ 2 MG/ML 2 ML VIAL ONE (14:41)
[2020-02-07] MEDS ORDERED: HYDROmorphone INJ 0.5 MG/0.5 ML SYR IV STA ×4 (15:14→21:57)
[2020-02-07] MEDS ORDERED: ONDANSETRON INJ 2 MG/ML 2 ML VIAL IV STA (15:14)
--- NOTE | 2020-02-07 15:19 | Emergency Department Note ---
History of Present Illness General Chief complaint: Abdominal Pain Stated complaint: SEVERE ABDOMINAL PAIN Time Seen by Provider: 02/07/20 15:02 History of Present Illness Maximum Pain Intensity: 9 This is a 30-year-old female that presents to the emergency department via private vehicle accompanied by her mother with complaints "severe abdominal pain". The patient has an extensive abdominal surgical history. Most recent surgery was performed in October at [facility] and this is a laparotomy. This was for repair of a perforated duodenum as well as replacement of G-tube. Patient states that she was here this past Thursday and underwent CT scan abdomen and pelvis and since then the pain has significantly worsened. She states that the pain prompted her arrival here this past Thursday was intermittent and again is now severe and constant. She points to the right lower quadrant as a location of pain that she describes as a twisting of the intestine type sensation. Discomfort is a 9/10. She has associated nausea and vomiting. She denies any fevers, chills, chest pain, shortness of breath or diarrhea. She is status post appendectomy and hysterectomy. She follows with Dr. Lantigua at [facility]. Home Medications Home Medications Medication Instructions Recorded Confirmed Type Linzess 145 mcg PO BID 03/07/18 02/07/20 History cetirizine [Zyrtec] 10 mg PO HS 03/07/18 02/07/20 History dicyclomine 10 - 20 mg PO Q6H PRN 03/07/18 02/07/20 History hyoscyamine sulfate [Levsin/SL] 0.125 mg SUBLINGUAL Q4H PRN 03/07/18 02/07/20 History pantoprazole [Protonix] 40 mg PO QAM 09/08/19 02/07/20 History famotidine 40 mg PO QAM 11/28/19 02/07/20 History polyethylene glycol 3350 [Miralax] 17 g PO TID PRN 11/28/19 02/07/20 History lorazepam [Ativan] 0.5 mg BUCCAL Q6H PRN 12/05/19 02/07/20 History gabapentin 200 mg PO TID 12/12/19 02/07/20 History cyclobenzaprine 5 mg PO HS 02/07/20 02/07/20 History hydrocortisone See Rx Instructions .ROUTE .COMPLEX 02/07/20 02/07/20 History nortriptyline 5 mg PO HS 02/07/20 02/07/20 History ondansetron 4 mg TRANSLINGUAL Q6H PRN 02/07/20 02/07/20 History trimethobenzamide 300 mg PO Q6H PRN 02/07/20 02/07/20 History Allergies Allergy/AdvReac Type Severity Reaction Status Date / Time amoxicillin Allergy Intermediate RASH Verified 02/04/20 00:01 Bactrim Allergy Intermediate RASH Verified 08/13/17 12:16 cefazolin Allergy Intermediate rash Verified 02/04/20 00:01 Cephalosporins Allergy Intermediate HIVES Verified 02/04/20 00:01 clavulanic acid Allergy Intermediate HIVES Verified 02/04/20 00:01 Penicillins Allergy Intermediate HIVES Verified 02/04/20 00:01 prochlorperazine Allergy Intermediate HIVES Verified 02/04/20 00:01 promethazine Allergy Intermediate hives, Verified 02/04/20 00:01 throat swelling sulfamethoxazole Allergy Intermediate RASH Verified 02/04/20 00:01 sumatriptan Allergy Intermediate RASH Verified 02/04/20 00:01 trimethoprim Allergy Intermediate RASH Verified 02/04/20 00:01 metoclopramide AdvReac Severe anxiety/ Verified 02/04/20 00:01 jittery diphenhydramine AdvReac Intermediate Tachycardia, Verified 02/04/20 00:01 Severe Anxiety WITH IV ONLY erythromycin base AdvReac Intermediate GI SYMPTOMS Verified 02/04/20 00:01 citalopram [From Celexa] AdvReac Unknown Verified 02/04/20 00:01 MULTIVITAMIN Allergy Intermediate Unknown Uncoded 02/04/20 00:01 Past Med/Surg History Medical History Asthma Chronic migraine Endometriosis has had 3 surgeries for this. Last surgery 2019 Hemorrhagic cystitis Hypotension PICC (peripherally inserted central catheter) in place TPN SMAS (superior mesenteric artery syndrome) Sphincter of Oddi dysfunction DECREASED GI MOTILITY Uses feeding tube gastroparesis and decreased GI motility can not tolerate feeding and uses TPN UTI (urinary tract infection) Surgical History H/O adenoidectomy H/O laparoscopy H/O lumpectomy right breast 2012 History of appendectomy History of bowel resection Part of duodenum removed due to necrosis; done at [facility] 2019 History of hysterectomy 09/27/19 History of removal of Port-a-Cath 10/13/[address] Geiger, [facility], due to bacteremia/sepsis. History of vascular access device 2017 Hx of colonoscopy during procedure perforated small bowel 10/27/[address] [facility], subsequent repair of duodenal area. Hx of tonsillectomy S/P cholecystectomy 2015 S/P wrist surgery right Family History Other No significant family history Social History Smoking Status: Never smoker Second Hand Exposure: No; Hx Alcohol Use: No Hx Substance Use: No Preferred Language: Georgian Communication Ability: Effective Visual Impairment: No Limitations Hearing Ability: Normal Inside Sales Person Required: No Beliefs That Will Affect Care: None marital status: single Current Living Situation: Parent Current Living Situation Comment: Lives with family. current occupational status: unemployed Feels Safe at Home: Yes Assistive Devices: Contacts and Glasses Review of Systems A total of 10 systems reviewed and were otherwise negative Physical Exam Vital Signs Vital Signs - 24 hr 02/07/20 13:43 02/07/20 14:36 02/07/20 14:40 Temperature 36.7 C Temperature Source Oral Pulse Rate 100 H 104 H 116 H Pulse Rate [Finger] Pulse Rate from SpO2 Sensor Respiratory Rate 18 25 H 22 Respiratory Effort / Characteristics Non-Labored Respiratory Depth Normal Blood Pressure 102/68 109/73 Blood Pressure [Right Arm] Blood Pressure Mean 79 80 Blood Pressure Mean [Right Arm] Pulse Oximetry 98 Oxygen Delivery Method Room Air Sepsis Recent Fever Within 48 Hours No Sepsis New/Unexplained Change in Mental Status No Sepsis Action Taken by Nursing No Action Required 02/07/20 15:00 02/07/20 15:01 02/07/20 15:30 Temperature Temperature Source Pulse Rate 104 H 104 H 104 H Pulse Rate [Finger] Pulse Rate from SpO2 Sensor Respiratory Rate 24 12 19 Respiratory Effort / Characteristics Respiratory Depth Blood Pressure 106/69 Blood Pressure [Right Arm] Blood Pressure Mean 83 Blood Pressure Mean [Right Arm] Pulse Oximetry Oxygen Delivery Method Sepsis Recent Fever Within 48 Hours Sepsis New/Unexplained Change in Mental Status Sepsis Action Taken by Nursing 02/07/20 16:00 02/07/20 16:19 02/07/20 16:21 Temperature Temperature Source Pulse Rate 98 H 107 H Pulse Rate [Finger] Pulse Rate from SpO2 Sensor Respiratory Rate 23 20 Respiratory Effort / Characteristics Respiratory Depth Blood Pressure 112/74 Blood Pressure [Right Arm] Blood Pressure Mean 78 Blood Pressure Mean [Right Arm] Pulse Oximetry Oxygen Delivery Method Room Air Sepsis Recent Fever Within 48 Hours Sepsis New/Unexplained Change in Mental Status Sepsis Action Taken by Nursing 02/07/20 16:30 02/07/20 16:31 02/07/20 17:00 Temperature Temperature Source Pulse Rate 100 H 98 H 105 H Pulse Rate [Finger] Pulse Rate from SpO2 Sensor Respiratory Rate 17 14 18 Respiratory Effort / Characteristics Respiratory Depth Blood Pressure 108/79 106/77 Blood Pressure [Right Arm] Blood Pressure Mean 84 83 Blood Pressure Mean [Right Arm] Pulse Oximetry Oxygen Delivery Method Sepsis Recent Fever Within 48 Hours Sepsis New/Unexplained Change in Mental Status Sepsis Action Taken by Nursing 02/07/20 17:01 02/07/20 17:30 02/07/20 17:31 Temperature Temperature Source Pulse Rate 106 H 100 H 105 H Pulse Rate [Finger] Pulse Rate from SpO2 Sensor Respiratory Rate 20 13 21 Respiratory Effort / Characteristics Respiratory Depth Blood Pressure 105/76 Blood Pressure [Right Arm] Blood Pressure Mean 81 Blood Pressure Mean [Right Arm] Pulse Oximetry Oxygen Delivery Method Sepsis Recent Fever Within 48 Hours Sepsis New/Unexplained Change in Mental Status Sepsis Action Taken by Nursing 02/07/20 18:00 02/07/20 18:01 02/07/20 18:30 Temperature Temperature Source Pulse Rate 99 H 106 H 102 H Pulse Rate [Finger] Pulse Rate from SpO2 Sensor Respiratory Rate 13 12 15 Respiratory Effort / Characteristics Respiratory Depth Blood Pressure 106/73 96/55 L Blood Pressure [Right Arm] Blood Pressure Mean 83 71 Blood Pressure Mean [Right Arm] Pulse Oximetry Oxygen Delivery Method Sepsis Recent Fever Within 48 Hours Sepsis New/Unexplained Change in Mental Status Sepsis Action Taken by Nursing 02/07/20 18:31 02/07/20 19:28 02/07/20 19:51 Temperature Temperature Source Pulse Rate 101 H Pulse Rate [Finger] 106 H Pulse Rate from SpO2 Sensor 104 H Respiratory Rate 18 20 Respiratory Effort / Characteristics Respiratory Depth Blood Pressure 112/75 Blood Pressure [Right Arm] 111/78 Blood Pressure Mean 85 Blood Pressure Mean [Right Arm] 89 Pulse Oximetry 98 98 Oxygen Delivery Method Room Air Room Air Sepsis Recent Fever Within 48 Hours Sepsis New/Unexplained Change in Mental Status Sepsis Action Taken by Nursing 02/07/20 20:00 02/07/20 20:30 02/07/20 21:00 Temperature Temperature Source Pulse Rate 107 H 104 H 112 H Pulse Rate [Finger] Pulse Rate from SpO2 Sensor Respiratory Rate 18 18 18 Respiratory Effort / Characteristics Respiratory Depth Blood Pressure 117/75 108/73 110/68 Blood Pressure [Right Arm] Blood Pressure Mean 89 80 84 Blood Pressure Mean [Right Arm] Pulse Oximetry 97 98 99 Oxygen Delivery Method Room Air Sepsis Recent Fever Within 48 Hours Sepsis New/Unexplained Change in Mental Status Sepsis Action Taken by Nursing VITAL SIGNS - Vital signs and nursing notes were reviewed. Stable and afebrile. GENERAL -30-year-old female appearing her stated age who laying on the examination bed in a position and tearful. Communicates well with provider and answers questions appropriately. SKIN - Without rashes. No meningeal or petechial rash. HEAD - NC/AT. EYES - PERRL with EOMI bilaterally. Sclera anicteric. Palpebral conjunctiva pink and moist with no injection noted. EARS - No deformities of external structures noted on gross examination bilaterally. No pain elicited with palpation of the tragus bilaterally. External auditory canals without discharge or otorrhea. Tympanic membranes pearly quijano without retraction or bulging. No fluid or purulent material visualized behind the TM. Handle of malleus, umbo, cone of light, pars tensa/flaccid all easily visualized. NOSE - Midline and without cyanosis. No epistaxis or purulent drainage noted. Septum midline without deviation or septal hematoma noted. MOUTH/OROPHARYNX - Without perioral cyanosis. Buccal mucosa pink and moist and without leukoplakia. Tongue midline with equal elevation of palate bilaterally. No tonsillar hypertrophy, erythema, or exudates noted. Good dentition noted. NECK - Neck with FROM. Supple to palpation. Now lymphadenopathy noted. No nuchal rigidity. LUNGS - Chest wall symmetric without accessory muscle use, intercostals retractions, or central cyanosis. Normal vesicular breath sounds CTA B/L. No wheezes, rales, or rhonchi appreciated. CARDIAC - RRR with S1/S2. No murmur, rubs, or gallops appreciated. ABDOMEN - Abdominal contour normal without pulsations or visible masses. G-tube in place with appropriate dressing. No drainage. The abdomen is tender in the right lower quadrant with even light palpation. Generalized mild tenderness in the other regions. EXTREMITIES - No clubbing or peripheral cyanosis. No pretibial edema present. +5/5 strength noted in UE/LE bilaterally. NEUROLOGIC - Cranial nerves II through XII grossly intact. PSYCH - A&Ox3 and cooperates fully with examiner. Pt is very pleasant and interacts well with examiner. Course Administered Medications Discontinued Medications Hydromorphone HCl (Hydromorphone Inj 0.5 Mg/0.5 Ml Syr) 0.5 mg IV NOW STA Stop: 02/07/20 15:15 Last Admin: 02/07/20 15:35 Dose: 0.5 mg Documented by: [id number] Hydromorphone HCl (Hydromorphone Inj 0.5 Mg/0.5 Ml Syr) 0.5 mg IV NOW STA Stop: 02/07/20 16:16 Last Admin: 02/07/20 16:19 Dose: 0.5 mg Documented by: [id number] Hydromorphone HCl (Hydromorphone Inj 0.5 Mg/0.5 Ml Syr) 0.5 mg IV NOW STA Stop: 02/07/20 19:10 Last Admin: 02/07/20 19:28 Dose: 0.5 mg Documented by: [id number] Hydromorphone HCl (Hydromorphone Inj 0.5 Mg/0.5 Ml Syr) 0.5 mg IV NOW STA Stop: 02/07/20 21:58 Last Admin: 02/07/20 22:01 Dose: 0.5 mg Documented by: [id number] Lorazepam (Ativan) 0.5 mg in 1 mls @ 1 mls/min IV NOW STA Stop: 02/07/20 17:34 Last Admin: 02/07/20 17:50 Dose: 1 mls/min Documented by: [id number] Ioversol (Ioversol 100ml) 94 ml IV ONCE ONE Stop: 02/07/20 18:45 Last Admin: 02/07/20 18:44 Dose: 94 ml Documented by: [id number] Ondansetron HCl (Ondansetron Inj 2 Mg/Ml 2 Ml Vial) Confirm Administered Dose 4 mg .ROUTE .STK-MED ONE Stop: 02/07/20 14:42 Last Admin: 02/07/20 14:45 Dose: 4 mg Documented by: [id number] Ondansetron HCl (Ondansetron Inj 2 Mg/Ml 2 Ml Vial) 4 mg IV NOW STA Stop: 02/07/20 15:15 Last Admin: 02/07/20 15:57 Dose: 4 mg Documented by: [id number] Medical Decision Making Laboratory Data Result diagrams: 02/07/20 14:37 02/07/20 14:37 Lab Results 02/07/20 02/07/20 02/07/20 Range/Units 14:37 14:37 16:13 WBC 6.42 (4.8-10.8) K/uL RBC 4.20 (4.2-5.4) M/uL Hgb 12.7 (12.0-16.0) g/dL Hct 38.6 (37-47) % MCV 91.9 (80-100) fL MCH 30.2 (25-34) pg MCHC 32.9 (32-36) g/dL RDW Std Deviation 41.5 (36.4-46.3) fL RDW Coeff of Tim 12.2 (11.5-14.5) % Plt Count 292 (130-400) K/uL MPV 11.1 H (7.4-10.4) fL Immature Gran % (Auto) 0.2 % Neut % (Auto) 69.6 % Lymph % (Auto) 20.2 % [place] % (Auto) 8.6 % Eos % (Auto) 1.1 % Baso % (Auto) 0.3 % Neut # (Auto) 4.47 (1.4-6.5) K/uL Lymph # (Auto) 1.30 (1.2-3.4) K/uL [place] # (Auto) 0.55 (0.11-0.59) K/uL Eos # (Auto) 0.07 (0-0.5) K/uL Baso # (Auto) 0.02 (0-0.2) K/uL Immature Gran # (Auto) 0.01 (0.00-0.02) K/uL Sodium 143 (136-145) mmol/L Potassium 3.8 (3.5-5.1) mmol/L Chloride 108 H (98-107) mmol/L Carbon Dioxide 26 (21-32) mmol/L Anion Gap 9.0 (3-11) BUN 8 (7-18) mg/dl Creatinine 0.62 (0.6-1.2) mg/dl Est Cr Clr Drug Dosing 98.1 ml/min Est GFR ( Amer) 142.2 Est GFR (Non-Af Amer) 122.7 BUN/Creatinine Ratio 12.5 (10-20) Glucose 81 (70-99) mg/dl Lactate 0.5 (0.4-2.0) mmol/L Calcium 8.7 (8.5-10.1) mg/dl Total Bilirubin 0.3 (0.2-1) mg/dl AST 17 (15-37) U/L ALT 22 (12-78) U/L Alkaline Phosphatase 63 (45-117) U/L Total Protein 7.1 (6.4-8.2) gm/dl Albumin 3.9 (3.4-5.0) gm/dl Globulin 3.2 (2.5-4.0) gm/dl Albumin/Globulin Ratio 1.2 (0.9-2) Lipase 153 (73-393) U/L Urine Color Urine Appearance (Clear) Urine pH (4.5-7.5) Ur Specific [place] (1.000-1.030) Urine Protein (Negative) Urine Glucose (UA) (Negative) Urine Ketones (Negative) Urine Blood (Negative) Urine Nitrite (Negative) Urine Bilirubin (Negative) Urine Urobilinogen (Negative) Ur Leukocyte Esterase (Negative) POC Ur Test (NEG) 02/07/20 02/07/20 Range/Units 19:48 19:48 WBC (4.8-10.8) K/uL RBC (4.2-5.4) M/uL Hgb (12.0-16.0) g/dL Hct (37-47) % MCV (80-100) fL MCH (25-34) pg MCHC (32-36) g/dL RDW Std Deviation (36.4-46.3) fL RDW Coeff of Tim (11.5-14.5) % Plt Count (130-400) K/uL MPV (7.4-10.4) fL Immature Gran % (Auto) % Neut % (Auto) % Lymph % (Auto) % [place] % (Auto) % Eos % (Auto) % Baso % (Auto) % Neut # (Auto) (1.4-6.5) K/uL Lymph # (Auto) (1.2-3.4) K/uL [place] # (Auto) (0.11-0.59) K/uL Eos # (Auto) (0-0.5) K/uL Baso # (Auto) (0-0.2) K/uL Immature Gran # (Auto) (0.00-0.02) K/uL Sodium (136-145) mmol/L Potassium (3.5-5.1) mmol/L Chloride (98-107) mmol/L Carbon Dioxide (21-32) mmol/L Anion Gap (3-11) BUN (7-18) mg/dl Creatinine (0.6-1.2) mg/dl Est Cr Clr Drug Dosing ml/min Est GFR ( Amer) Est GFR (Non-Af Amer) BUN/Creatinine Ratio (10-20) Glucose (70-99) mg/dl Lactate (0.4-2.0) mmol/L Calcium (8.5-10.1) mg/dl Total Bilirubin (0.2-1) mg/dl AST (15-37) U/L ALT (12-78) U/L Alkaline Phosphatase (45-117) U/L Total Protein (6.4-8.2) gm/dl Albumin (3.4-5.0) gm/dl Globulin (2.5-4.0) gm/dl Albumin/Globulin Ratio (0.9-2) Lipase (73-393) U/L Urine Color Yellow Urine Appearance Clear (Clear) Urine pH 6.5 (4.5-7.5) Ur Specific [place] 1.037 H (1.000-1.030) Urine Protein Negative (Negative) Urine Glucose (UA) Negative (Negative) Urine Ketones Negative (Negative) Urine Blood Negative (Negative) Urine Nitrite Negative (Negative) Urine Bilirubin Negative (Negative) Urine Urobilinogen Negative (Negative) Ur Leukocyte Esterase Negative (Negative) POC Ur Test NEG (NEG) Imaging Data Radiologist's Impression: CT abd pelvis oral and IV con CLINICAL HISTORY: Severe worsening right lower quadrant abdominal pain and vomiting. COMPARISON STUDY: 02/04/2020 TECHNIQUE: The patient was scanned following administration of dilute oral contrast, and in a dynamic helical fashion during intravenous administration of 94 cc of Optiray 320 A dose lowering technique was utilized adhering to the principles of ALARA. CT DOSE: 253.40 mGy.cm FINDINGS: Lower chest: The heart is normal in size and configuration, without pericardial effusion. The lung bases and pleural spaces are clear. Liver: The contrast-enhanced liver is normal in size, contour, and attenuation. There is no intrahepatic biliary ductal dilatation. The hepatic veins and portal veins are patent. Gallbladder: Surgically absent Spleen: Normal in size and attenuation. Pancreas: Unremarkable. Adrenal glands: Unremarkable. Kidneys: There is symmetric renal cortical enhancement. The kidneys are normal in size without hydronephrosis. Bowel: There are no transition zones to indicate bowel obstruction. There is no evidence of acute diverticulitis. The appendix is not visualized. There is suture material the level of the cecal tip. There are no pericecal inflammatory changes. A gastrostomy tube is visualized. There is a metallic density within a jejunal loop. This has been described previously. Peritoneum: There is no intraperitoneal free air or abdominal ascites. Vasculature: The abdominal aorta is normal in course and caliber. Adenopathy: None. Pelvic viscera: The uterus appears surgically absent. There are bilateral ovarian follicles. Skeletal structures: No destructive osseous lesions are seen. IMPRESSION: 1. No acute intra-abdominal or pelvic findings 2. Indwelling gastrostomy tube 3. No evidence of bowel obstruction. No evidence of free air 4. Surgically absent gallbladder and uterus 5. No evidence of acute diverticulitis. No evidence of acute appendicitis. I suspect the patient is status post appendectomy. ACT 112: Negative or not required by law. Electronically signed by: Sudeep Buck M.D. 02/07/2020 6:57 PM MDM Narrative Patient was seen and evaluated as above in room C03. Review was performed of nursing notes and vital signs. I did review pertinent previous visits and patient history. After obtaining a thorough history and physical examination the above work up was performed. Patient has a known significant abdominal surgical history. Her vital signs are stable. Abdominal examination here reveals a tender right-sided abdominal region. Benefit versus risk of repeat CT was discussed with the patient. Given the patient's severe pain on examination as well as subjective complaints of pain we through shared decision making elected upon a repeat CT scan. I contemplated CTA however will note that she had this performed about 1 year ago. Results of the CT as above. This was essentially negative. I reviewed the findings with the patient. There is no leukocytosis or anemia. No emergent metabolic disturbance. Lactate normal. Urinalysis negative and UPT negative. Patient did have several rounds of IV narcotics here as well as Ativan and Zofran. She also was hydrated with IV fluids. Given the patient's intractable pain here it was felt that further evaluation in the inpatient setting would be reasonable. Patient amenable to staying. Please refer to further documentation regarding her stay. While in the department, I personally reevaluated the patient several times. Case discussed with the attending physician. Case discussed with the hospitalist. Please refer to fur ther documentation regarding her stay. In the evaluation and treatment of this patient the following differential diagnoses were entertained: Bowel obstruction, adhesion, UTI, diverticulitis, mesenteric ischemia, colitis, among others. Impression & Plan Intractable abdominal pain Discharge Plan Visit Data Chief Complaint: Abdominal Pain Stated Complaint: SEVERE ABDOMINAL PAIN ED Provider: Mau Christine ED Midlevel Provider: Wili Moralez Discharge Problem: Intractable abdominal pain Patient Disposition: Admitted As Inpatient Condition: Good Discharge Instructions Interventions: ED Discharge Assessment Last Done: 02/07/20 22:18
[2020-02-07 15:23] LABS: Basophils # (auto) 0.02 K/uL (0-0.2); Basophils % (auto) 0.3 %; Eosinophils # (auto) 0.07 K/uL (0-0.5); Eosinophils % (auto) 1.1 %; Hematocrit (blood only) 38.6 % (37-47); Hemoglobin 12.7 g/dL (12.0-16.0); Immature Granulocytes # (auto) 0.01 K/uL (0.00-0.02); Immature Granulocytes % (auto) 0.2 %; Lymphocytes % (auto) 20.2 %; Mean Corpuscular Hemoglobin 30.2 pg (25-34); Mean Corpuscular Hgb Conc 32.9 g/dL (32-36); Mean Corpuscular Volume 91.9 fL (80-100); Mean Platelet Volume 11.1 fL (7.4-10.4); Monocytes # (auto) 0.55 K/uL (0.11-0.59); Monocytes % (auto) 8.6 %; Neutrophils # (auto) 4.47 K/uL (1.4-6.5); Neutrophils % (auto) 69.6 %; Platelet Count 292 K/uL (130-400); RDW Coefficient of Variation 12.2 % (11.5-14.5); RDW Standard Deviation 41.5 fL (36.4-46.3); White Blood Count 6.42 K/uL (4.8-10.8)
[2020-02-07 15:31] LABS: Albumin Level 3.9 gm/dl (3.4-5.0); BUN Creatinine Ratio 12.5 (10-20); Calcium 8.7 mg/dl (8.5-10.1); Creatinine Clr Calc Pharmacy 98.1 ml/min; Est GFR (African American) 142.2; Est GFR (Non-African American) 122.7; Potassium 3.8 mmol/L (3.5-5.1)
[2020-02-07 15:34] LABS: Albumin Globulin Ratio 1.2 (0.9-2); Bilirubin,Total 0.3 mg/dl (0.2-1); Globulin 3.2 gm/dl (2.5-4.0); Total Protein 7.1 gm/dl (6.4-8.2)
[2020-02-07] MEDS ORDERED: LORazepam 0.5 MG/1 ML VIAL IV STA (17:33)
[2020-02-07] MEDS ORDERED: IOVERSOL 100ml IV ONE (18:44)
--- NOTE | 2020-02-07 18:58 | CT Scan Report ---
CT abd pelvis oral and IV con CLINICAL HISTORY: Severe worsening right lower quadrant abdominal pain and vomiting. COMPARISON STUDY: 02/04/2020 TECHNIQUE: The patient was scanned following administration of dilute oral contrast, and in a dynamic helical fashion during intravenous administration of 94 cc of Optiray 320 A dose lowering technique was utilized adhering to the principles of ALARA. CT DOSE: 253.40 mGy.cm FINDINGS: Lower chest: The heart is normal in size and configuration, without pericardial effusion. The lung ba ses and pleural spaces are clear. Liver: The contrast-enhanced liver is normal in size, contour, and attenuation. There is no intrahepa tic biliary ductal dilatation. The hepatic veins and portal veins are patent. Gallbladder: Surgically absent Spleen: Normal in size and attenuation. Pancreas: Unremarkable. Adrenal glands: Unremarkable. Kidneys: There is symmetric renal cortical enhancement. The kidneys are normal in size without hydron ephrosis. Bowel: There are no transition zones to indicate bowel obstruction. There is no evidence of acute div erticulitis. The appendix is not visualized. There is suture material the level of the cecal tip. The re are no pericecal inflammatory changes. A gastrostomy tube is visualized. There is a metallic densi ty within a jejunal loop. This has been described previously. Peritoneum: There is no intraperitoneal free air or abdominal ascites. Vasculature: The abdominal aorta is normal in course and caliber. Adenopathy: None. Pelvic viscera: The uterus appears surgically absent. There are bilateral ovarian follicles. Skeletal structures: No destructive osseous lesions are seen. IMPRESSION: 1. No acute intra-abdominal or pelvic findings 2. Indwelling gastrostomy tube 3. No evidence of bowel obstruction. No evidence of free air 4. Surgically absent gallbladder and uterus 5. No evidence of acute diverticulitis. No evidence of acute appendicitis. I suspect the patient is s tatus post appendectomy. ACT 112: Negative or not required by law. Electronically signed by: Sudeep Buck M.D. 02/07/2020 6:57 PM
[2020-02-07 20:02] LABS: Appearance Urine Clear (Clear); Bilirubin Urine Negative (Negative); Blood Urine Negative (Negative); Color Urine Yellow; Glucose Urine UA Negative (Negative); Ketones Urine Negative (Negative); Leukocyte Esterase Urine Negative (Negative); Nitrite Urine Negative (Negative); Protein Urine Negative (Negative); Specific Gravity Urine 1.037 (1.000-1.030); Urobilinogen Urine Negative (Negative); pH Urine 6.5 (4.5-7.5)
--- NOTE | 2020-02-07 21:43 | History & Physical Report ---
Date of Service February 07, 2020 Assessment & Plan (1) Right lower quadrant abdominal pain: Pilar is a 30yo female with a PMHx significant for recurrent abdominal pain secondary to intestinal motility issues who was admitted for pain control before her follow-up visit with her specialist at [facility] on Jan. Pain control in the setting of gut dysmotility -Pt having intractable "twisting" abdominal pain -CT abd/pelvis with no new changes, notes bowel adhesions -schedule tylenol 1000mg IV q8h -Toradol 15mg IV q6hr PRN -Dilaudid 0.5mg q2h PRN, titrate up as needed -continue home miralax regimen, 17g TID PRN -KUB ordered for AM in case there is an obstruction -Zofran IV 4mg PRN for nausea Chronic Problems: Gut dysmotiilty: continue home cyclobenzaprine 5mg, dicylcomine, gabapentin, nortriptiline. F/u scheduled with Dr. Stanton Lantigua, office # [phone], at [facility]. Hx of adrenal insufficiency: continue home hydrocortisone. No stress dosing needed currenty as pt not hypotensive. Continue to monitor for need. GI protection: continue home famotidine 40mg PO, home protonix Nausea: trimethobenzamide 300mg q6h PRN, zofran FEN/GI: Has G-tube DVT prophylaxis: ambulation CODE STATUS: Full Dispo: Med/Surg History of Present Illness Primary Care Provider: Mariah Addison DO Pilar is a 30yo female with a PMHx significant for recurrent abdominal pain secondary to intestinal motility issues who was admitted for pain control before her follow-up visit with her specialist at [facility] on Jan. She states that since her last visit to the ED 2 days prior, she has been having constant abdominal pain with nausea. Mom is present and also at bedside. Mom states that she is concerned something might be missed "once more" with daughter. Pilar states her pain is mostly in the RLL and feels like her intestines are "twisting". Mom states that they were told she has intestines in her pelvis and is concerned about obstruction or that "something is being missed". Pilar is a non smoker, does not drink alcohol and does not use recreational drugs. She lives at home with mom and dad and does not work as she says she has been dealing with her GI issues for the last 4 years. Allergies Allergy/AdvReac Type Severity Reaction Status Date / Time amoxicillin Allergy Intermediate RASH Verified 02/04/20 00:01 Bactrim Allergy Intermediate RASH Verified 08/13/17 12:16 cefazolin Allergy Intermediate rash Verified 02/04/20 00:01 Cephalosporins Allergy Intermediate HIVES Verified 02/04/20 00:01 clavulanic acid Allergy Intermediate HIVES Verified 02/04/20 00:01 Penicillins Allergy Intermediate HIVES Verified 02/04/20 00:01 prochlorperazine Allergy Intermediate HIVES Verified 02/04/20 00:01 promethazine Allergy Intermediate hives, Verified 02/04/20 00:01 throat swelling sulfamethoxazole Allergy Intermediate RASH Verified 02/04/20 00:01 sumatriptan Allergy Intermediate RASH Verified 02/04/20 00:01 trimethoprim Allergy Intermediate RASH Verified 02/04/20 00:01 metoclopramide AdvReac Severe anxiety/ Verified 02/04/20 00:01 jittery diphenhydramine AdvReac Intermediate Tachycardia, Verified 02/04/20 00:01 Severe Anxiety WITH IV ONLY erythromycin base AdvReac Intermediate GI SYMPTOMS Verified 02/04/20 00:01 citalopram [From Celexa] AdvReac Unknown Verified 02/04/20 00:01 MULTIVITAMIN Allergy Intermediate Unknown Uncoded 02/04/20 00:01 Home Medications Home Medications Medication Instructions Recorded Confirmed Type Linzess 145 mcg PO BID 03/07/18 02/07/20 History cetirizine [Zyrtec] 10 mg PO HS 03/07/18 02/07/20 History dicyclomine 10 - 20 mg PO Q6H PRN 03/07/18 02/07/20 History hyoscyamine sulfate [Levsin/SL] 0.125 mg SUBLINGUAL Q4H PRN 03/07/18 02/07/20 History pantoprazole [Protonix] 40 mg PO QAM 09/08/19 02/07/20 History famotidine 40 mg PO QAM 11/28/19 02/07/20 History polyethylene glycol 3350 [Miralax] 17 g PO TID PRN 11/28/19 02/07/20 History lorazepam [Ativan] 0.5 mg BUCCAL Q6H PRN 12/05/19 02/07/20 History gabapentin 200 mg PO TID 12/12/19 02/07/20 History cyclobenzaprine 5 mg PO HS 02/07/20 02/07/20 History hydrocortisone See Rx Instructions .ROUTE .COMPLEX 02/07/20 02/07/20 History nortriptyline 5 mg PO HS 02/07/20 02/07/20 History ondansetron 4 mg TRANSLINGUAL Q6H PRN 02/07/20 02/07/20 History trimethobenzamide 300 mg PO Q6H PRN 02/07/20 02/07/20 History Past Med/Surg History Medical History Asthma Chronic migraine Endometriosis has had 3 surgeries for this. Last surgery 2018 Hemorrhagic cystitis Hypotension PICC (peripherally inserted central catheter) in place TPN SMAS (superior mesenteric artery syndrome) Sphincter of Oddi dysfunction DECREASED GI MOTILITY Uses feeding tube gastroparesis and decreased GI motility can not tolerate feeding and uses TPN UTI (urinary tract infection) Surgical History H/O adenoidectomy H/O laparoscopy H/O lumpectomy right breast 2011 History of appendectomy History of bowel resection Part of duodenum removed due to necrosis; done at [facility] 2019 History of hysterectomy 09/27/19 History of removal of Port-a-Cath 10/13/[address] Geiger, [facility], due to bacteremia/sepsis. History of vascular access device 2017 Hx of colonoscopy during procedure perforated small bowel 10/27/2019 at [facility], subsequent repair of duodenal area. 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 current occupational status: unemployed Feels Safe at Home: Yes Assistive Devices: None Review of Systems Constitutional: no fever, no chills and no sweats Eyes: no worsening vision Ear, Nose, Mouth, Throat: no dizziness, no nasal congestion and no sore throat Respiratory: no cough and no dyspnea Cardiovascular: no chest pain, no palpitations and no edema Gastrointestinal: + abdominal pain, + nausea and + cramping; no vomiting and no diarrhea/loose stools Genitourinary: no dysuria and no hematuria Musculoskeletal: no back pain Integumentary: no rash Neurologic: no tingling, no numbness, no headache(s) and no confusion Psychiatric: no confusion Physical Exam Physical Exam: General: Alert, oriented. No acute distress laying in bed Skin: No noted rashes or bruises Psych: Appropriate mood and affect Neuro: No gross deficits HEENT: NC/AT Chest: Nontender to palpation. CV: RRR, Normal s1, s2. No murmurs appreciated Resp: Breath sounds clear bilaterally, no increased effort of breathing. No crackles/rhonchi/rales. Abdomen: Soft, tender in RLL, nondistended. No guarding. No organomegaly appreciated. Extremities: No edema in lower extremities bilaterally. Results & Data Results & Data ([facility]) Vital Signs (Past 12 Hours) Vital Signs Temp Pulse Pulse Resp BP BP Pulse Ox 02/07/20 21:00 112 H 18 110/68 99 02/07/20 20:30 104 H 18 108/73 98 02/07/20 20:00 107 H 18 117/75 97 02/07/20 19:51 20 112/75 98 02/07/20 19:28 106 H 18 111/78 98 02/07/20 18:31 101 H 02/07/20 18:30 102 H 15 96/55 L 02/07/20 18:01 106 H 12 02/07/20 18:00 99 H 13 106/73 02/07/20 17:31 105 H 21 02/07/20 17:30 100 H 13 105/76 02/07/20 17:01 106 H 20 02/07/20 17:00 105 H 18 106/77 02/07/20 16:31 98 H 14 02/07/20 16:30 100 H 17 108/79 02/07/20 16:21 107 H 20 112/74 02/07/20 16:00 98 H 23 02/07/20 15:30 104 H 19 02/07/20 15:01 104 H 12 02/07/20 15:00 104 H 24 106/69 02/07/20 14:40 116 H 22 02/07/20 14:36 104 H 25 H 109/73 02/07/20 13:43 36.7 C 100 H 18 102/68 98 Supervising Physician Co-Signing Physician Notes Patient seen and examined, chart reviewed, case discussed with Dr. Donald and I agree with her assessment and plan as documented above. Patient is an unfortunate medically complex 30 yo female with multiple abdominal surgeries presenting with RLQ abdominal pain. She feels as though her "intestines are twisting". Also wtih some nausea. On exam she is afebrile, HD stable, NAD, resting comfortably in bed Skin - warm, dry, intact HEENT - NC/AT, PERRL, EOMI, MMM, neck supple Heart - +S1/S2, regular, no m/r/g Lungs - CTA, no rales/rhonchi/wheezes Abd - +G-tube in place, NT, diminished bowel sounds, soft, tender in RLQ, no rebound, some voluntary guarding Ext - No edema Labs and images reviewed and are unremarkable for acute intrabdominal catastrophe Assessment/Plan - 30yo female with extensive abdominal surgeries presenting with abdominal pain. No obvious source at this time. Abdomen is not acute on exam -KUB in AM -Family would like transfer to [facility] in AM as patient sees physicians there -Remainder of plan as abovde Resident Activity Tracking Resident Involvement: Resident Care Provided Care Provided: Adult Hospital Medicine
[2020-02-07] MEDS ORDERED: ACETAMINOPHEN 1000 MG/100 ML IV IV SCH (22:45)
[2020-02-07] MEDS ORDERED: POLYETHYLENE (MIRALAX) 17 GM PACK PO PRN (22:45)
[2020-02-07] MEDS ORDERED: HYOSCYAMINE SULFATE 0.125 MG TAB SL PRN (22:45)
[2020-02-07] MEDS: LORazepam 0.5 MG TAB SL PRN (23:45)
[2020-02-07] MEDS: KETOROLAC TROMETHAMINE 15 MG/ML VIAL IV PRN (23:52)
[2020-02-08] MEDS ORDERED: TUBE FEEDING WATER FLUSH GT PRN
[2020-02-08] MEDS: ACETAMINOPHEN 65 ML IV SCH ×4 (00:15→18:35)
[2020-02-08] MEDS ORDERED: TPN/PPN CONSULT PHARMACY PRN (00:16)
[2020-02-08] MEDS ORDERED: TRIMETHOBENZAMIDE HCL PO PRN (00:18)
[2020-02-08] MEDS ORDERED: TPN/PPN CONSULT PHARMACY STA (00:22)
[2020-02-08] MEDS: HEPARIN 100 UNIT/ML 5ML FLUSH IV PRN ×3 (00:42→15:32)
[2020-02-08] MEDS: LINZESS~ORDER AWAITING ACTION SCH ×3 (01:28→15:32)
--- NOTE | 2020-02-08 02:16 | Billing Data ---
Date of Service February 07, 2020 Coding Level of Care Code 96488 OBS Care - Level 3
[2020-02-08] MEDS: HYDROmorphone INJ 0.5 MG/0.5 ML SYR IV PRN ×4 (03:02→23:37)
[2020-02-08] MEDS: ONDANSETRON INJ 2 MG/ML 2 ML VIAL IV PRN ×4 (03:03→22:46)
[2020-02-08 06:58] LABS: BUN Creatinine Ratio 12.3 (10-20); Calcium 8.5 mg/dl (8.5-10.1); Creatinine Clr Calc Pharmacy 106.5 ml/min; Est GFR (African American) 146.2; Est GFR (Non-African American) 126.2; Magnesium 2.1 mg/dl (1.8-2.4); Phosphorus 4.3 mg/dl (2.5-4.9); Potassium 3.4 mmol/L (3.5-5.1)
[2020-02-08] MEDS: LORazepam 0.5 MG TAB SL PRN (08:25)
--- NOTE | 2020-02-08 08:36 | XRay Report ---
KUB HISTORY: Follow up study in a patient with possible small bowel obstruction rule out SBO COMPARISON: CT abdomen and pelvis 02/07/2020 FINDINGS: Cholecystectomy. Gastrostomy tube. Retained contrast within the urinary bladder. Progressio n of enteric contrast into the large bowel with nonobstructive bowel gas pattern. Surgical clip is ag ain noted projecting over the left midabdomen. No renal calculi. No ureteral calculi. No pneumoperit oneum or pneumatosis. Mild dextroscoliosis of the thoracolumbar junction. No fracture. IMPRESSION: 1. Nonobstructive bowel gas pattern with progression of enteric contrast into the large bowel. 2. Gastrostomy tube appears to be in stable positioning. 3. Cholecystectomy. ACT 112: Negative or not required by law. The above report was generated using voice recognition software. It may contain grammatical, syntax o r spelling errors. Electronically signed by: Danny Sow M.D. 02/08/2020 8:35 AM
[2020-02-08] MEDS ORDERED: HYDROCORTISONE 10 MG TAB PO SCH ×2 (09:00→14:00)
[2020-02-08] MEDS ORDERED: LORazepam 0.5 MG TAB PO STA (09:49)
[2020-02-08] MEDS: PANTOprazole 40 MG TAB PO SCH (11:51)
[2020-02-08] MEDS: FAMOTIDINE 40 MG TABLET PO SCH (11:52)
[2020-02-08] MEDS: KETOROLAC TROMETHAMINE 15 MG/ML VIAL IV PRN ×2 (12:20→20:05)
[2020-02-08] MEDS: POTASSIUM CHLORIDE / WTR 10 MEQ/100 ML PLCT IV SCH ×2 (12:23→13:30)
[2020-02-08] MEDS ORDERED: GLUCOSE 40% GEL 15 GM TUBE PO PRN (13:48)
[2020-02-08] MEDS ORDERED: GLUCOSE 10 TABS/TUBE PO PRN (13:48)
[2020-02-08] MEDS ORDERED: GLUCAGON FOR INJ 1 MG VIAL SQ PRN (13:48)
[2020-02-08] MEDS ORDERED: DEXTROSE 50% 50 ML SYRINGE IV PRN (13:48)
[2020-02-08] MEDS ORDERED: CARBOHYDRATES FOR HYPOGLYCEMIA PO PRN (13:48)
[2020-02-08] MEDS: GABAPENTIN 100 MG CAP PO SCH ×2 (13:51→13:53)
[2020-02-08] MEDS ORDERED: FOSAPREPITANT DIMEGLUMINE IV ONE (13:57)
[2020-02-08] MEDS ORDERED: SODIUM CHLORIDE 0.9% IV ONE (13:57)
[2020-02-08] MEDS: LORazepam 0.5 MG/1 ML VIAL IV PRN ×2 (14:53→20:06)
--- NOTE | 2020-02-08 15:24 | Ultrasound Report ---
US abdomen ltd hernia CLINICAL HISTORY: Right lower quadrant pain. COMPARISON STUDY: CT of the abdomen and pelvis February 07, 2020. TECHNIQUE: Sonography of the right lower quadrant abdominal wall was performed. FINDINGS: No right lower quadrant hernia was noted. No mass or fluid collection was identified by son ography. IMPRESSION: No right lower quadrant abdominal wall hernia identified. ACT 112: Negative or not required by law. Electronically signed by: Ruperto Lopez M.D. 02/08/2020 3:23 PM
--- NOTE | 2020-02-08 15:35 | Ultrasound Report ---
US pelvic limited CLINICAL HISTORY: evaluate bilateral ovaries. Pelvic pain. COMPARISON STUDY: Abdomen and pelvis CT 02/07/2020. FINDINGS: Transabdominal scanning of the pelvis was performed with resources representative images submitted. T he uterus is surgically absent. The ovaries are normal in size and demonstrates a few small follicles /cysts. Normal color flow within the bilateral ovaries. No pelvic free fluid. IMPRESSION: Prior hysterectomy. No significant abnormality within the pelvis. ACT 112: Negative or not required by law. Electronically signed by: Victor Hugo Snowden M.D. 02/08/2020 3:34 PM
--- NOTE | 2020-02-08 15:52 | Pharmacy Report ---
Pharmacy PN Initial Consult - Date of Service February 08, 2020 - Scope Pharmacy has been consulted to manage parenteral nutrition orders and order appropriate labs. As part of the Nutrition Support Team guidelines, pharmacy will work in conjunction with dietary when determining the patients caloric needs. - Subjective The patient is a 30 year old F admitted on 02/07/20 21:24 for ABDOMINAL PAIN. Patient is receives parenteral nutrition chronically d/t GI dysmotility. Patient missed her TPN last evening, as she was being admitted to the hospital. - Objective Height: 5 ft 6 in Weight: 45.9 kg Intake & Output (Last 24Hrs): Intake & Output 02/06/20 02/07/20 02/08/20 02/09/20 06:59 06:59 06:59 06:59 Intake Total 130 / 130 381.2 / 381.2 Output Total 450 / 450 200 / 200 Balance -320 / -320 181.2 / 181.2 Weight 45.9 kg 45.9 kg Laboratory Data (Last 24 Hrs):: 02/08/20 06:13 Sodium 142 Potassium 3.4 L Chloride 108 H Carbon Dioxide 26 BUN 7 Creatinine 0.57 L Glucose 73 Calcium 8.5 Phosphorus 4.3 Magnesium 2.1 Nutrition Assessment:: Please refer to the Notes section of the EMR for the most recent c software developer note. - Assessment Ms Garcia is a 30yo female on chronic parenteral nutrition for GI dysmotility issues. She is well-known to the pharmacy service from previous admissions. Patient presents with persistent abdominal pain. She follows with [facility] and was scheduled to have a f/u visit with them 02/08. Patient did not receive her TPN last evening, as she was in the process of being admitted to the hospital. Generally patient receives cyclic infusions over 14 hours, however, we typically administer her TPN over 24 hours during admissions to improve tolerance. Will do this again during this admission. - Plan Outpatient TPN orders acquired from [facility] this morning. Will order inpatient TPN similarly to what she receives as an outpt. Patient's potassium was slightly low this morning (3.4mg/dL), so potassium was replaced. Macronutrients Amino acids 90 grams/day Dextrose 250 grams/day Lipids 50 grams/day on Thursday, Thursday, Thursday Micronutrients Sodium chloride: 70 mEq Potassium phosphate: 6 mMol Potassium chloride: 20 mEq Potassium acetate: 100 mEq Magnesium sulfate: 12.18 mEq Calcium gluconate: 13.95 mEq Multivitamins --- omitted -- pt has an allergy Trace Elements: 1 mL Additional additives: Thiamine 100mg + Folic Acid 1mg + Famotidine 20mg Total volume 1700 mL to be infused over 24 hrs will provide 1710 kcal/day Labs to be ordered per PN order protocol Pharmacy will follow and adjust parenteral nutrition orders on a daily basis. Thank you.
[2020-02-08] MEDS ORDERED: CENTRAL PN IV SCH (16:00)
[2020-02-08] MEDS ORDERED: TPN IV SCH (16:00)
--- NOTE | 2020-02-08 16:56 | Hospitalist Progress Note ---
Date of Service February 08, 2020 Assessment & Plan (1) Right lower quadrant abdominal pain: Pilar is a 30yo female with a PMHx significant for recurrent abdominal pain secondary to intestinal motility issues who was admitted for pain control before her follow-up visit with her specialist at [facility] on Jan for G-tube exchange. Intractable abdominal pain possibly sec to bowel adhesions in setting of h/o Gut dysmotility, -CT abd/pelvis with no new changes, notes bowel adhesions -Ultrasound of ovaries and of RLQ for hernia w/o concerning findings -NPO/IVF -GI consulted -Initially on Dilaudid 0.5 Q2H, but discontinued due to concern of worsening motility with LBM 2 days prior -schedule Tylenol IV q6h -Toradol 15mg IV q6hr PRN -continue home Miralax regimen, 17g TID PRN, as tolerable -KUB this AM with nonobstructive bowel gas pattern and progression of enteric contrast into the bowels -Continue home cyclobenzaprine 5mg, dicylcomine, gabapentin, nortriptiline. Continue to discuss care with Dr. Stanton Lantigua, at [facility]. Intractable nausea and vomiting, acute on chronic -TPN contributes -s/p Emend 02/07 -Trimethobenzamide 300mg q6h PRN -Zofran IV 4mg PRN -Added Ativan for nausea which has worked in the past Malnutrition with BMI 16.3 -Patient not tolerating TPN due to nausea -Started D5LR at maintenance 100ml/hr Hypokalemia - 3.4 this AM - repleted with 2 K-rider - recheck in AM Hx. Adrenal insufficiency - continue Hydrocortisone IV GI protection -continue home famotidine 40mg PO, home protonix FEN/GI: Has G-tube, 100 mL D5LR DVT prophylaxis: ambulation CODE STATUS: Full Dispo: Med/Surg Admission and Anticipated Discharge Date Admission Date: February 07, 2020 Supervising Physician Co-Signing Physician Notes Resident Physician Supervision Note: I independently interviewed and examined the patient and verified the solorzano history and physical, reviewed labs and image studies, discussed the case with the resident Dr. Yepez and agree with the findings and care plan. Subjective Pilar Garcia was lying in bed with her eyes closed, mother was at bedside and helped explain her clinical course. She explained that her pain started on Thursday and has worsened since then and has not improved over the day today. The severity was 5/10 at baseline and then would get to a 9/10 for up to hours at a time. The pain was explained as twisting or tearing in nature. There was no preceding illness. She has also experienced nausea and vomiting. Her last bowel movement was 2 days prior, a small amount of stool after an enema. In the afternoon mother brought up that she was concerned that we may miss since prior normal scans had been re-read with abnormalities including SMA syndrome in the past. She was concerned when we stopped the Dilaudid that her daughter would not be able to tolerate the pain. Talking with Dr. Lujan with [facility], she had a planned G-tube replacement planned for tomorrow. Prior surgeries include: - GIL in September with Dr. Cruz at [facility] - Laparotomy @ [facility] in October for perforation of Duodenum and G-tube replacement Prior admissions include: - 10/18 for intestinal dysmotility with presentation of nausea vomiting, abdominal pain and worsening dysmotility after hyterectomy - 09/11 for nausea, vomiting and generalized abdominal pain Review of Systems Review of Systems: Constitutional: denies fever, chills Cardiac: denies chest pain, palpitations, pre-syncope GI: admits nausea, vomiting, constipation : denies urinary frequency, urgency, or pain Pulm: denies cough, shortness of breath Physical Exam Constitutional: well developed, well nourished and + cachectic ENMT: external ear and nose normal, oropharynx normal Neck: normal visual inspection Respiratory: normal respiratory effort, lungs clear to auscultation Cardiovascular: RRR, no murmur, no edema Gastrointestinal (Abdomen): - active bowel sounds - tender in the right lower quadrant - psoas and obturator + - not rigid, no guarding - midline scar, G-tube in place, c/d/i, no warmth or erythema Skin: no rashes, warm and dry Results & Data Results & Data ([facility]) Vital Signs (Past 12 Hours) Vital Signs Temp Pulse Resp BP Pulse Ox 02/08/20 15:41 36.6 C 102 H 14 100/70 93 02/08/20 07:25 36.7 C 84 16 99/67 L 98 CBC Results Results Complete Blood Count Results: RBC 3.52 M/uL (4.2-5.4) L 02/09/20 WBC 7.76 K/uL (4.8-10.8) 02/09/20 Hgb 10.8 g/dL (12.0-16.0) L 02/09/20 Hct 32.3 % (37-47) L 02/09/20 Plt Count 259 K/uL (130-400) 02/09/20 Chemistry (BMP) Results [facility] Results: Sodium 142 mmol/L (136-145) 02/09/20 Potassium 3.4 mmol/L (3.5-5.1) L 02/09/20 Chloride 108 mmol/L (98-107) H 02/09/20 BUN 8 mg/dl (7-18) 02/09/20 Creatinine 0.53 mg/dl (0.6-1.2) L 02/09/20 Glucose 87 mg/dl (70-99) 02/09/20 Resident Activity Tracking Resident Involvement: Resident Care Provided Care Provided: Adult [facility] Medicine
[2020-02-08] MEDS ORDERED: HYDROCORTISONE SOD 10 MG in SYRINGE 0 ML IV ONE (17:00)
[2020-02-08] MEDS: D5W AND LACTATED RINGERS 1,000 ML IV SCH (18:51)
[2020-02-08] MEDS ORDERED: NORTRIPTYLINE HCL 10 MG CAP PO SCH (21:00)
[2020-02-08] MEDS ORDERED: HYDROmorphone INJ 1 MG/ML SYRINGE IV STA (21:04)
--- NOTE | 2020-02-08 21:42 | Progress Note ---
Date of Service February 08, 2020 Assessment & Plan Admission and Anticipated Discharge Date Admission Date: February 07, 2020 Subjective Patient with severe abdominal pain, nausea throughout the day. Her IV Dilaudid was discontinued due to concerns for effects on motility and possibly exacerbating her current symptoms. Patient was scheduled to have replacement of her G-tube tomorrow, 02/09/20 at [facility] with Dr. Telles. Day physician spoke with Dr. Telles this afternoon and informed him that the plan is to keep the patient here, have our GI team evaluate her and control symptoms. Dr. Telles in agreement. On exam patient is tearful, in distress secondary to abdominal pain and nausea Abdomen is soft with hypoactive bowel sounds. Tender in RLQ with voluntary guarding. Abdominal exam unchanged from admission exam Labs and images reviewed. Abdominal US with no RLQ abdominal wall hernia. Pelvic US with no significant abnormality KUB with non-obstructive bowel gas pattern Assessment/Plan: Patient to remain at [facility] for the time being until adequate control of abdominal pain and nausea can be achieved GI consultation placed - patient is known to Dr. Velasco Dilaudid 1mg IV administered now, resumed 0.5mg IV q 2 hours as needed. Spoke with patient about trying to limit narcotic use. May attempt Miralax after pain and nausea more controlled Covid-19 test pending from 02/06/20 - should be resulted tomorrow. She will need this test to have her procedure at [facility] Patient's mother is to communicate with [facility] re: rescheduling G-tube placement. Results & Data ([facility]) Vital Signs (Past 12 Hours) Vital Signs Temp Pulse Resp BP Pulse Ox 02/08/20 15:41 36.6 C 102 H 14 100/70 93 PG Care Time/CCT Total # of Minutes Spent Total Time Spent with Patient: Total time spent is greater than 50% in coord ination of care (as documented) at patient's floor/unit and/or counseling patient: Coding Level of Care Code None
[2020-02-08] MEDS ORDERED: CHLORPROMAZINE HCL 25 MG TABLET PO ONE (23:54)
[2020-02-09] MEDS: ACETAMINOPHEN 65 ML IV SCH ×5 (00:27→23:49)
[2020-02-09] MEDS: HYDROmorphone INJ 0.5 MG/0.5 ML SYR IV PRN ×10 (01:36→23:50)
[2020-02-09] MEDS: GABAPENTIN 100 MG CAP PO SCH ×6 (02:38→21:44)
[2020-02-09] MEDS: CYCLOBENZAPRINE HCL 5 MG TAB PO SCH ×4 (02:38→21:44)
[2020-02-09] MEDS: CETIRIZINE HCL 10 MG TABLET PO SCH ×4 (02:39→21:44)
[2020-02-09] MEDS: LINZESS~ORDER AWAITING ACTION SCH ×2 (02:46→09:18)
[2020-02-09] MEDS: KETOROLAC TROMETHAMINE 15 MG/ML VIAL IV PRN ×3 (03:21→18:51)
[2020-02-09] MEDS: LORazepam 0.5 MG/1 ML VIAL IV PRN ×2 (03:34→21:16)
[2020-02-09 06:25] LABS: Basophils # (auto) 0.04 K/uL (0-0.2); Basophils % (auto) 0.5 %; Eosinophils # (auto) 0.26 K/uL (0-0.5); Eosinophils % (auto) 3.4 %; Hematocrit (blood only) 32.3 % (37-47); Hemoglobin 10.8 g/dL (12.0-16.0); Immature Granulocytes # (auto) 0.01 K/uL (0.00-0.02); Immature Granulocytes % (auto) 0.1 %; Lymphocytes # (auto) 1.73 K/uL (1.2-3.4); Lymphocytes % (auto) 22.3 %; Mean Corpuscular Hemoglobin 30.7 pg (25-34); Mean Corpuscular Hgb Conc 33.4 g/dL (32-36); Mean Corpuscular Volume 91.8 fL (80-100); Mean Platelet Volume 10.4 fL (7.4-10.4); Monocytes % (auto) 7.7 %; Neutrophils # (auto) 5.12 K/uL (1.4-6.5); Platelet Count 259 K/uL (130-400); RDW Standard Deviation 40.7 fL (36.4-46.3); Red Blood Count 3.52 M/uL (4.2-5.4); White Blood Count 7.76 K/uL (4.8-10.8)
[2020-02-09] MEDS: D5W AND LACTATED RINGERS 1,000 ML IV SCH (06:29)
[2020-02-09] MEDS: ONDANSETRON INJ 2 MG/ML 2 ML VIAL IV PRN ×3 (06:56→19:30)
[2020-02-09 06:58] LABS: BUN Creatinine Ratio 14.8 (10-20); Calcium 8.4 mg/dl (8.5-10.1); Creatinine Clr Calc Pharmacy 114.5 ml/min; Est GFR (African American) 149.8; Est GFR (Non-African American) 129.2; Magnesium 1.8 mg/dl (1.8-2.4); Potassium 3.4 mmol/L (3.5-5.1)
[2020-02-09 07:04] LABS: Phosphorus 3.6 mg/dl (2.5-4.9)
[2020-02-09] MEDS: POTASSIUM CHLORIDE / WTR 10 MEQ/100 ML PLCT IV SCH ×3 (09:17→11:26)
[2020-02-09] MEDS: FAMOTIDINE 40 MG TABLET PO SCH (09:20)
[2020-02-09] MEDS: HYDROCORTISONE SOD 15 MG in SYRINGE 0 ML IV SCH (09:21)
[2020-02-09] MEDS: PANTOprazole 40 MG TAB PO SCH (09:21)
--- NOTE | 2020-02-09 09:29 | Gastrointestinal Consultation ---
Date of Consultation February 09, 2020 Assessment & Plan (1) Intractable abdominal pain: Recommend limited use of narcotics as likely contributing to symptoms. Continue current measures (including home cyclobenzaprine 5mg, dicylcomine, gabapentin, nortriptiline) and TPN. Recommend gastric feeding tube to LIS for decompression and hopefully provide some symptomatic relief of nausea and abdominal pain. Patient case is very complicated and, if supportive care is not working, then she needs to be transferred to [facility] for further management. Please refer to supervising physician addendum for further recommendations. Supervising Physician Co-Signing Physician Notes I spoke with and examined the patient. I agree with Ashely Ford assessment except if noted below. Pt with recurrent abd pain, n/v follow by [facility]. She is admitted for typical symptoms. Abdmen pos bs, soft, some right sided guarding but no rebound abd pain--chronic with acute exacerbation n/v Not much to offer given extensive workup in the past and followed by [place]. Would limit narcotics as much as possible given adverse effect on motility. She has had some improvement in the past putting G tube to low intermittent suction until she feels better She is asking about using Suprep now that she is prescribed to take couple times a month per [place]. Cautioned that given her exacerbation it might make it worse, on the other hand if she is constipated it might help. She is complicated patient and if does not improve or worsens would transfer to [place]. 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 Most recent surgery was performed in October at [facility] - Laparotomy for perforation of Duodenum and G-tube replacement. Has GJ tube but is intolerant of feedings uses tube for venting. Has been on chronic TPN for the last 2 years. Also has po feedings. History provided by patient and mother. Reports abdominal pain began about 3 weeks ago as sharp RLQ pain that was intermittent, sharp, and stabbing. Patient reports she has been experiencing severe abdominal pain since Thursday02/01/2020. Initially pain was intermittent. Was evaluated in the ED on 02/03/2020 due to symptoms and reported LOC while in the bathroom at home due to pain. CT A/P demonstrated no acute infectious or inflammatory findings in the abdomen or pelvis; no bowel obstru ction; matted loops of small bowel in the pelvis are likely related to adhesions; postoperative changes as above. She was discharged to home and plan was for her to follow-up with GI specialist at [facility], Dr. Lantigua. Progressed Thursday02/06/2020 to constant generalized abdominal pain, nausea, dry heaving. Describes pain as twisting in my gut. She was reevaluated in the ED on 02/07/2020. CT A/P demonstrated no acute intra-abdominal or pelvic findings; indwelling gastrostomy tube; no evidence of bowel obstruction, no evidence of free air; surgically absent gallbladder and uterus; no evidence of acute diverticulitis. She was subsequently admitted for further management. On exam/interview today, patient reports that abdominal pain continues. She reports that Dilaudid is helpful for pain. Dilaudid was discontinued due to concerns for worsening of intestinal dysmotility but was resumed after patient had worsening of pain that lasted throughout the day yesterday. Patient reports pain is better today. Rates 6/10 currently. Reports that she does have a chronic abdominal pain that is typically at a 3/10. She reports her nausea is well controlled at present time. Last po intake Thursday02/06/2020. NPO since time of admission. Last bowel movement at home prior to admission with small amount of stool after an enema. She reports she often has some liquid overflow diarrhea, none since hospitalization. Minimal flatus per her report. Reports approximately a 10 pound weight loss over the last 6 months. Reports she does skip TPN infusions at home at times due to nausea. She denies fever, chills, night sweats, heartburn, difficulty swallowing food/pills/liquids, melena, hematochezia. The patient is a lifetime nonsmoker with no significant second hand smoke exposu res. Denies alcohol use. Denies recreational drug use. She lives at home with mom and dad and does not work as she says she has been dealing with her GI issues for the last 4 years. Unmarried and no children. Allergies Allergy/AdvReac Type Severity Reaction Status Date / Time amoxicillin Allergy Intermediate RASH Verified 02/04/20 00:01 Bactrim Allergy Intermediate RASH Verified 08/13/17 12:16 cefazolin Allergy Intermediate rash Verified 02/04/20 00:01 Cephalosporins Allergy Intermediate HIVES Verified 02/04/20 00:01 clavulanic acid Allergy Intermediate HIVES Verified 02/04/20 00:01 Penicillins Allergy Intermediate HIVES Verified 02/04/20 00:01 prochlorperazine Allergy Intermediate HIVES Verified 02/04/20 00:01 promethazine Allergy Intermediate hives, Verified 02/04/20 00:01 throat swelling sulfamethoxazole Allergy Intermediate RASH Verified 02/04/20 00:01 sumatriptan Allergy Intermediate RASH Verified 02/04/20 00:01 trimethoprim Allergy Intermediate RASH Verified 02/04/20 00:01 metoclopramide AdvReac Severe anxiety/ Verified 02/04/20 00:01 jittery diphenhydramine AdvReac Intermediate Tachycardia, Verified 02/04/20 00:01 Severe Anxiety WITH IV ONLY erythromycin base AdvReac Intermediate GI SYMPTOMS Verified 02/04/20 00:01 citalopram [From Celexa] AdvReac Unknown Verified 02/04/20 00:01 MULTIVITAMIN Allergy Intermediate Unknown Uncoded 02/04/20 00:01 Home Medications Home Medications Medication Instructions Recorded Confirmed Type Linzess 145 mcg PO BID 03/07/18 02/07/20 History cetirizine [Zyrtec] 10 mg PO HS 03/07/18 02/07/20 History dicyclomine 10 - 20 mg PO Q6H PRN 03/07/18 02/07/20 History hyoscyamine sulfate [Levsin/SL] 0.125 mg SUBLINGUAL Q4H PRN 03/07/18 02/07/20 History pantoprazole [Protonix] 40 mg PO QAM 09/08/19 02/07/20 History famotidine 40 mg PO QAM 11/28/19 02/07/20 History polyethylene glycol 3350 [Miralax] 17 g PO TID PRN 11/28/19 02/07/20 History lorazepam [Ativan] 0.5 mg BUCCAL Q6H PRN 12/05/19 02/07/20 History gabapentin 200 mg PO TID 12/12/19 02/07/20 History cyclobenzaprine 5 mg PO HS 02/07/20 02/07/20 History hydrocortisone See Rx Instructions .ROUTE .COMPLEX 02/07/20 02/07/20 History nortriptyline 5 mg PO HS 02/07/20 02/07/20 History ondansetron 4 mg TRANSLINGUAL Q6H PRN 02/07/20 02/07/20 History trimethobenzamide 300 mg PO Q6H PRN 02/07/20 02/07/20 History Patient History Medical History Asthma Chronic migraine Endometriosis has had 3 surgeries for this. Last surgery 2019 Hemorrhagic cystitis Hypotension PICC (peripherally inserted central catheter) in place TPN SMAS (superior mesenteric artery syndrome) Sphincter of Oddi dysfunction DECREASED GI MOTILITY Uses feeding tube gastroparesis and decreased GI motility can not tolerate feeding and uses TPN UTI (urinary tract infection) Surgical History H/O adenoidectomy H/O laparoscopy H/O lumpectomy right breast 2011 History of appendectomy History of bowel resection Part of duodenum removed due to necrosis; done at [facility] 2019 History of hysterectomy 09/27/19 History of removal of Port-a-Cath 10/13/[address] Geiger, [facility], due to bacteremia/sepsis. History of vascular access device 2017 Hx of colonoscopy during procedure perforated small bowel 10/27/2019 at [facility], subsequent repair of duodenal area. Hx of tonsillectomy S/P cholecystectomy 2015 S/P wrist surgery right Family History Other No significant family history Social History Smoking Status: Never smoker Second Hand Exposure: No; Hx Alcohol Use: No Hx Substance Use: No Preferred Language: Syriac Communication Ability: Effective Visual Impairment: No Limitations Hearing Ability: Normal Senior Associate Required: No Beliefs That Will Affect Care: None marital status: single Current Living Situation: Parent Current Living Situation Comment: Lives with family. current occupational status: unemployed Feels Safe at Home: Yes Assistive Devices: None Review of Systems Review of Systems: All systems reviewed & are unremarkable except as noted in Subjective Physical Exam Constitutional: + ill appearing Eyes: wears corrective lenses ENMT: external ear and nose normal, oropharynx normal Neck: normal visual inspection Respiratory: normal respiratory effort, lungs clear to auscultation Cardiovascular: RRR, no murmur, no edema Gastrointestinal (Abdomen): Inspection/Auscultation: abdomen normal to inspection, normal bowel sounds and + abdominal surgical scar (scarring noted to abdomen consistent with multiple previous surgeries); abdomen not distended Percussion/Palpation: + abdomen tender (generalized with even light palpation; Worse RLQ; LLQ palp radiates to RLQ) and + guarding (with RLQ palpation); abdomen not rigid, no hernia and no abdominal mass Musculoskeletal: Extremities: extremities normal to inspection Skin: no rashes, warm and dry Neurologic: moves all extremities Psychiatric: Orientation: alert and oriented x 3 Results & Data ([facility]) Vital Signs (Past 12 Hours) Vital Signs Temp Pulse Resp BP Pulse Ox 02/09/20 07:11 36.7 C 100 H 16 104/70 98 02/09/20 00:04 36.6 C 123 H 16 101/67 97 Laboratory Results - last 24 hr 02/08/20 02/08/20 02/08/20 13:43 14:03 14:28 WBC RBC Hgb Hct MCV MCH MCHC RDW Std Deviation RDW Coeff of Tim Plt Count MPV Immature Gran % (Auto) Neut % (Auto) Lymph % (Auto) [place] % (Auto) Eos % (Auto) Baso % (Auto) Neut # (Auto) Lymph # (Auto) [place] # (Auto) Eos # (Auto) Baso # (Auto) Immature Gran # (Auto) Sodium Potassium Chloride Carbon Dioxide Anion Gap BUN Creatinine Est Cr Clr Drug Dosing Est GFR ( Amer) Est GFR (Non-Af Amer) BUN/Creatinine Ratio Glucose POC Glucose 60 L* 60 L* 172 H Calcium Phosphorus Magnesium 02/08/20 02/08/20 02/08/20 14:30 16:16 18:02 WBC RBC Hgb Hct MCV MCH MCHC RDW Std Deviation RDW Coeff of Tim Plt Count MPV Immature Gran % (Auto) Neut % (Auto) Lymph % (Auto) [place] % (Auto) Eos % (Auto) Baso % (Auto) Neut # (Auto) Lymph # (Auto) [place] # (Auto) Eos # (Auto) Baso # (Auto) Immature Gran # (Auto) Sodium Potassium Chloride Carbon Dioxide Anion Gap BUN Creatinine Est Cr Clr Drug Dosing Est GFR ( Amer) Est GFR (Non-Af Amer) BUN/Creatinine Ratio Glucose POC Glucose 154 H 89 80 Calcium Phosphorus Magnesium 02/08/20 02/09/20 02/09/20 23:39 05:27 05:27 WBC 7.76 RBC 3.52 L Hgb 10.8 L Hct 32.3 L MCV 91.8 MCH 30.7 MCHC 33.4 RDW Std Deviation 40.7 RDW Coeff of Tim 12.0 Plt Count 259 MPV 10.4 Immature Gran % (Auto) 0.1 Neut % (Auto) 66.0 Lymph % (Auto) 22.3 [place] % (Auto) 7.7 Eos % (Auto) 3.4 Baso % (Auto) 0.5 Neut # (Auto) 5.12 Lymph # (Auto) 1.73 [place] # (Auto) 0.60 H Eos # (Auto) 0.26 Baso # (Auto) 0.04 Immature Gran # (Auto) 0.01 Sodium 142 Potassium 3.4 L Chloride 108 H Carbon Dioxide 27 Anion Gap 7.0 BUN 8 Creatinine 0.53 L Est Cr Clr Drug Dosing 114.5 Est GFR ( Amer) 149.8 Est GFR (Non-Af Amer) 129.2 BUN/Creatinine Ratio 14.8 Glucose 87 POC Glucose 92 Calcium 8.4 L Phosphorus 3.6 Magnesium 1.8 02/09/20 05:49 WBC RBC Hgb Hct MCV MCH MCHC RDW Std Deviation RDW Coeff of Tim Plt Count MPV Immature Gran % (Auto) Neut % (Auto) Lymph % (Auto) [place] % (Auto) Eos % (Auto) Baso % (Auto) Neut # (Auto) Lymph # (Auto) [place] # (Auto) Eos # (Auto) Baso # (Auto) Immature Gran # (Auto) Sodium Potassium Chloride Carbon Dioxide Anion Gap BUN Creatinine Est Cr Clr Drug Dosing Est GFR ( Amer) Est GFR (Non-Af Amer) BUN/Creatinine Ratio Glucose POC Glucose 88 Calcium Phosphorus Magnesium
[2020-02-09] MEDS ORDERED: bisacodyL 10 MG SUPP PR PRN (09:49)
--- NOTE | 2020-02-09 11:16 | Pharmacy Report ---
PHA: Parenteral Nutrition Con - Date of Service February 09, 2020 - Scope Pharmacy was consulted on 02/08/20 to manage parenteral nutrition orders for this patient. - Subjective The patient is currently on day [#] of [peripheral or central] parenteral nutrition for [INDICATION]. - Objective Height: 5 ft 6 in Weight: 45.9 kg Diet: NPO Intake & Output (24hrs):: Intake & Output 02/07/20 02/08/20 02/09/20 02/10/20 06:59 06:59 06:59 06:59 Intake Total 130 / 130 1676.2 / 1676.2 100 / 100 Output Total 450 / 450 700 / 700 Balance -320 / -320 976.2 / 976.2 100 / 100 Weight 45.9 kg 45.9 kg Laboratory Data (Last 24 Hr):: 02/09/20 05:27 Sodium 142 Potassium 3.4 L Chloride 108 H Carbon Dioxide 27 BUN 8 Creatinine 0.53 L Glucose 87 Calcium 8.4 L Phosphorus 3.6 Magnesium 1.8 Nutrition Assessment:: Please refer to the Notes section of the EMR for the most recent infant childcare provider note. - Assessment Ms Garcia is a 30yo female on chronic parenteral nutrition for GI dysmotility issues. She is well-known to the pharmacy service from previous admissions. Patient presents with persistent abdominal pain. She follows with [facility] and was scheduled to have a f/u visit with them 02/08. Patient REFUSED the TPN Pharmacy prepared for her. She was then ordered D5LR @ 100ml/hr x 2,000ml. Pt also received 30meq KCL IV this morning. Generally patient receives cyclic infusions over 14 hours, however, we typically administer her TPN over 24 hours during admissions to improve tolerance. She likes the TPN to be run very slowly. Will do this again during this admission. [facility] Talked with patient this morning. She said that she is feeling a little better and would like to have the TPN today. OK'ed with hospitalist as well. - Plan For day 2 of PN administration, the following will be ordered: Macronutrients Amino acids 90 grams/day Dextrose 250 grams/day Lipids 50 grams/day Micronutrients Sodium acetate 70 mEq Potassium phosphate 10 mMol Potassium chloride 20 mEq Potassium acetate 100 mEq Magnesium sulfate 12.18 mEq Calcium gluconate 13.95 mEq Trace Elements 1 mL Additional additives: Folic Acid 1mg + Thiamine 100mg NO MVI ordered d/t allergy/intolerance Total volume 1700 mL to be infused over 24 hrs will provide 1710 kcal/day Labs, as indicated, will be ordered per protocol Pharmacy will continue to follow and adjust parenteral nutrition orders on a daily basis. Thank you for allowing us to participate in the care of this patient.
--- NOTE | 2020-02-09 12:48 | Hospitalist Progress Note ---
Date of Service February 09, 2020 Assessment & Plan Admission and Anticipated Discharge Date Admission Date: February 07, 2020 Pilar is a 30yo female with a PMHx significant for recurrent abdominal pain secondary to intestinal motility issues who was admitted for pain control before her follow-up visit with her specialist at [facility] for G-tube exchange, pain and nausea have improved with IV pain and nausea medication. Intractable abdominal pain possibly sec to bowel adhesions in setting of h/o Gut dysmotility, -CT abd/pelvis with no new changes, notes bowel adhesions -KUB with nonobstructive bowel gas pattern and progression of enteric contrast into the bowels -Ultrasound of ovaries and of RLQ for hernia w/o concerning findings -NPO -GI consulted, rec. -symptomatic management and if unable to control symptoms to transfer to [facility] -G-tube on low intermittent suction -restarted Dilaudid 0.5 Q2H, discussed limiting this due to concerns for worsening of motility, LBM 3 days prior -schedule IV Tylenol -Toradol 15mg IV q6hr PRN -continue home Miralax regimen, 17g TID PRN, as tolerable, as well as suppositories -Continue home cyclobenzaprine 5mg, dicyclomine, gabapentin, nortriptyline. Continue to discuss care with Dr. Stanton Lantigua, at [facility]. Intractable nausea and vomiting, acute on chronic -TPN contributes -s/p Emend 02/07, 02/08 -Trimethobenzamide 300mg q6h PRN -Zofran IV 4mg PRN -Added Ativan for nausea which has worked in the past Malnutrition with BMI 16.3 -Patient not tolerating TPN due to nausea -Started D5LR at maintenance 100ml/hr Hypokalemia - 3.4 this AM - repleted with 3 K-rider - recheck in AM Hx. Adrenal insufficiency - noted in chart since 2017, will discuss with patient - continue Hydrocortisone IV GI protection -continue home famotidine 40mg PO, home protonix FEN/GI: Has G-tube, TPN 1700 mL over 24 hours DVT prophylaxis: ambulation CODE STATUS: Full Dispo: Med/Surg Supervising Physician Co-Signing Physician Notes Resident Physician Supervision Note: I independently interviewed and examined the patient and verified the solorzano history and physical, reviewed labs and image studies, discussed the case with the resident Dr. Ypeez and agree with the findings and care plan. Subjective Doing better today, Pilar Garcia had improvement of her pain to 5-6/10. She was also having improvement in her nausea. GI was in the room and I was able to glean some additional information about her history. She brought up that she first developed abdominal pain in high school, and she has baseline pain around 3/10. She has had her G-tube in place for almost 2 years and does not use it for nutrition, but for venting. She does take oral intake as well as TPN which she has used for almost 2 years. Review of Systems Constitutional: no fever and no chills Respiratory: no cough Cardiovascular: no chest pain Gastrointestinal: + abdominal pain and + nausea; no vomiting Genitourinary: no dysuria, no urinary frequency and no urinary urgency Physical Exam Physical Exam: Constitutional + cachectic ENMT external ear and nose normal, oropharynx normal Neck normal visual inspection Respiratory normal respiratory effort, lungs clear to auscultation Cardiovascular RRR, no murmur, no edema Gastrointestinal (Abdomen) - active bowel sounds - tender in the right lower quadrant - not rigid, no guarding - midline scar, G-tube in place, c/d/i, no warmth or erythema Skin no rashes, warm and dry Results & Data Results & Data ([facility]) Vital Signs (Past 12 Hours) Vital Signs Temp Pulse Resp BP Pulse Ox 02/09/20 07:11 36.7 C 100 H 16 104/70 98 CBC Results Results Complete Blood Count Results: RBC 3.52 M/uL (4.2-5.4) L 02/09/20 WBC 7.76 K/uL (4.8-10.8) 02/09/20 Hgb 10.8 g/dL (12.0-16.0) L 02/09/20 Hct 32.3 % (37-47) L 02/09/20 Plt Count 259 K/uL (130-400) 02/09/20 Chemistry (BMP) Results BMP Results: Sodium 142 mmol/L (136-145) 02/09/20 Potassium 3.4 mmol/L (3.5-5.1) L 02/09/20 Chloride 108 mmol/L (98-107) H 02/09/20 BUN 8 mg/dl (7-18) 02/09/20 Creatinine 0.53 mg/dl (0.6-1.2) L 02/09/20 Glucose 87 mg/dl (70-99) 02/09/20 Resident Activity Tracking Resident Involvement: Resident Care Provided Care Provided: Adult [facility]
[2020-02-09] MEDS: DICYCLOMINE HCL 10 MG CAP PO PRN (15:22)
[2020-02-09] MEDS: HYDROCORTISONE SOD 10 MG in SYRINGE 0 ML IV SCH (15:25)
[2020-02-09] MEDS ORDERED: TPN IV SCH (16:00)
[2020-02-09] MEDS ORDERED: CENTRAL PN IV SCH (16:00)
[2020-02-09] MEDS ORDERED: FOSAPREPITANT DIMEGLUMINE 150 MG in SODIUM CHLORIDE 0.9% 145 ML IV ONE (16:30)
[2020-02-09] MEDS: LINACLOTIDE 145 MCG PO SCH ×2 (20:14→21:44)
[2020-02-09] MEDS: DEXTROSE 10% 1,000 ML IV PRN (22:33)
[2020-02-10] MEDS ORDERED: CHLORPROMAZINE HCL 25 MG TABLET PO PRN (00:07)
[2020-02-10] MEDS: ONDANSETRON INJ 2 MG/ML 2 ML VIAL IV PRN ×3 (01:23→23:46)
[2020-02-10] MEDS: LORazepam 0.5 MG/1 ML VIAL IV PRN ×3 (01:40→21:37)
[2020-02-10] MEDS: HYDROmorphone INJ 0.5 MG/0.5 ML SYR IV PRN ×4 (06:22→22:34)
[2020-02-10] MEDS: ACETAMINOPHEN 65 ML IV SCH ×4 (06:27→23:56)
[2020-02-10 06:29] LABS: Basophils # (auto) 0.02 K/uL (0-0.2); Basophils % (auto) 0.3 %; Eosinophils # (auto) 0.42 K/uL (0-0.5); Eosinophils % (auto) 7.2 %; Hematocrit (blood only) 33.2 % (37-47); Hemoglobin 11.1 g/dL (12.0-16.0); Immature Granulocytes # (auto) 0.01 K/uL (0.00-0.02); Immature Granulocytes % (auto) 0.2 %; Lymphocytes # (auto) 1.72 K/uL (1.2-3.4); Lymphocytes % (auto) 29.3 %; Mean Corpuscular Hemoglobin 30.7 pg (25-34); Mean Corpuscular Hgb Conc 33.4 g/dL (32-36); Mean Corpuscular Volume 91.7 fL (80-100); Mean Platelet Volume 10.3 fL (7.4-10.4); Monocytes # (auto) 0.66 K/uL (0.11-0.59); Monocytes % (auto) 11.2 %; Neutrophils # (auto) 3.04 K/uL (1.4-6.5); Neutrophils % (auto) 51.8 %; Platelet Count 257 K/uL (130-400); RDW Coefficient of Variation 11.9 % (11.5-14.5); RDW Standard Deviation 40.3 fL (36.4-46.3); Red Blood Count 3.62 M/uL (4.2-5.4); White Blood Count 5.87 K/uL (4.8-10.8)
[2020-02-10 07:04] LABS: BUN Creatinine Ratio 9.1 (10-20); Creatinine Clr Calc Pharmacy 106.5 ml/min; Est GFR (African American) 145.4; Est GFR (Non-African American) 125.4
[2020-02-10 07:07] LABS: Albumin Globulin Ratio 1.2 (0.9-2); Bilirubin,Total 0.2 mg/dl (0.2-1); Globulin 2.5 gm/dl (2.5-4.0); Total Protein 5.5 gm/dl (6.4-8.2)
[2020-02-10] MEDS: LINACLOTIDE 145 MCG PO SCH ×2 (08:57→20:42)
[2020-02-10] MEDS: POTASSIUM CHLORIDE / WTR 10 MEQ/100 ML PLCT IV SCH ×4 (08:59→14:54)
[2020-02-10] MEDS: GABAPENTIN 100 MG CAP PO SCH ×3 (09:01→20:41)
[2020-02-10] MEDS: FAMOTIDINE 40 MG TABLET PO SCH (09:01)
[2020-02-10] MEDS: PANTOprazole 40 MG TAB PO SCH (09:01)
[2020-02-10] MEDS: HYDROCORTISONE SOD 15 MG in SYRINGE 0 ML IV SCH (09:02)
[2020-02-10] MEDS: KETOROLAC TROMETHAMINE 15 MG/ML VIAL IV PRN (09:06)
[2020-02-10] MEDS: DEXTROSE 10% 1,000 ML IV PRN (10:57)
[2020-02-10] MEDS: HYDROCORTISONE SOD 10 MG in SYRINGE 0 ML IV SCH (13:11)
--- NOTE | 2020-02-10 13:56 | Pharmacy Report ---
PHA: Parenteral Nutrition Con - Date of Service February 10, 2020 - Scope Pharmacy was consulted on [DATE] to manage parenteral nutrition orders for this patient. - Subjective The patient is on TPN chronically. - Objective Height: 5 ft 6 in Weight: 46.7 kg Diet: NPO (patient with nausea) Vascular Access:: PICC LINE Intake & Output (24hrs):: Intake & Output 02/08/20 02/09/20 02/10/20 02/11/20 06:59 06:59 06:59 06:59 Intake Total 130 / 130 1676.2 / 1676.2 2467.649 / 2467.649 565.567 / 565.567 Output Total 450 / 450 700 / 700 1151 / 1151 Balance -320 / -320 976.2 / 976.2 1316.649 / 1316.649 565.567 / 565.567 Weight 45.9 kg 45.9 kg 46.7 kg Laboratory Data (Last 24 Hr):: 02/10/20 05:18 Sodium 142 Potassium 3.0 L Chloride 107 Carbon Dioxide 29 BUN 5 L Creatinine 0.58 L Glucose 110 H Calcium 9.0 Total Bilirubin 0.2 AST 27 ALT 48 Alkaline Phosphatase 57 Albumin 3.0 L Nutrition Assessment:: Please refer to the Notes section of the EMR for the most recent hospice plan administrator note. - Assessment Patient is on chronic cyclic TPN at home that runs over 14 hrs. Patient with chronic nausea. TPN seems to make it worse. She refused the TPN on 02/08/20 and had it stopped yesterday night at 2100 due to nausea. Discussed with Dr. Yepez regarding going forward with TPN. He requested that we trial the 24 hr TPN again since that would provide a lower volume per hour compared to a 14 hr bag. This may help with patient's nausea. However, he said he will further discuss with patient regarding this. For today, will continue with the 1700 ml TPN bag to run over 24 hrs. - Plan For day 3 of PN administration (while in-patient but patient on chronic TPN), the following will be ordered: Macronutrients Amino acids 90 grams/day Dextrose 250 grams/day Lipids 50 grams/day Micronutrients Combined electrolytes [] mL - contains 35 mEq Na, 20 meq K, 4.5 mEq Ca, 5 mEq Mg, 35 mEq Cl, 29.5 mEq acetate per 20 mL Sodium phosphate [] MMol Sodium chloride [] mEq Sodium acetate [] mEq Potassium phosphate 15 mMol Potassium chloride 40 mEq Potassium acetate 100 mEq Magnesium sulfate 12.18 mEq Calcium gluconate 9.2 mEq Multivitamins - none (patient is allergic) Trace Elements 1 mL Additional additives: Thiamine 100 mg Total volume 1700 mL to be infused over 24 hrs will provide 1710 kcal/day Labs, as indicated, will be ordered per protocol Pharmacy will continue to follow and adjust parenteral nutrition orders on a daily basis. Thank you for allowing us to participate in the care of this patient.
--- NOTE | 2020-02-10 14:58 | Progress Notes ---
DATE: 02/10/2020 SUBJECTIVE: The patient continues to have abdominal pain requiring Dilaudid. Her potassium was low today at 3 and she is getting replacement as well as her standard TPN. She has her G-tube connected to suction and it is draining some dark brown material. OBJECTIVE: VITAL SIGNS: Normal. She is afebrile. ABDOMEN: Shows a midline incision that is well healed with a G-tube in the left upper quadrant. There is mild tenderness throughout the abdomen. The patient reports her last bowel movement was last evening and it was liquidy. She typically has a liquidy bowel movement a day and then every 5 days, it is more solid. IMPRESSION AND PLAN: The patient has intestinal dysmotility, managed at [facility]. She is here for management of her abdominal pain, which she gets periodically. At this point, I would continue supportive measures that are in place. If things do not improve or she gets worse, then I would transfer her to [facility] where her care team is. At this point, we will sign off unless something changes. Please contact Dr. Fernández over the weekend as he is covering if needed.
--- NOTE | 2020-02-10 15:41 | Hospitalist Progress Note ---
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 Intractable abdominal pain possibly sec to bowel adhesions in setting of h/o Gut dysmotility, -CT abd/pelvis with no new changes, notes bowel adhesions -KUB with nonobstructive bowel gas pattern and progression of enteric contrast into the bowels -Ultrasound of ovaries and of RLQ for hernia w/o concerning findings -NPO -GI consulted, rec. -symptomatic management and if unable to control symptoms to transfer to [facility] -G-tube on low intermittent suction -Dilaudid 0.5 Q2H for pain control, discussed limiting this due to concerns for worsening of motility -schedule IV Tylenol -Toradol 15mg IV q6hr PRN -continue home Miralax regimen, 17g TID PRN, as tolerable, as well as suppositories -Continue home cyclobenzaprine 5mg, dicyclomine, gabapentin, nortriptyline. -Continue to discuss care with Dr. Stanton Lantigua, at [facility]. Intractable nausea and vomiting, acute on chronic -TPN contributes -s/p Emend 02/07, 02/08 -Trimethobenzamide 300mg q6h PRN -Zofran IV 4mg PRN -Added Ativan for nausea which has worked in the past Malnutrition with BMI 16.3 -Patient not tolerating TPN due to nausea, approx. 4 hours last night -Will continue to encourage TPN as tolerable Hypokalemia - 3.0 this AM - repleted with 4 K-rider - recheck in AM Hx. Adrenal insufficiency - diagnosed with stim test in 2017 - continue Hydrocortisone IV at home dose GI protection -continue home famotidine 40mg PO, home Protonix FEN/GI: Has G-tube, TPN 1700 mL over 24 hours DVT prophylaxis: ambulation CODE STATUS: Full Dispo: Med/Surg Supervising Physician Co-Signing Physician Notes Resident Physician Supervision Note: I independently interviewed and examined the patient and verified the solorzano history and physical, reviewed labs and image studies, discussed the case with the resident Dr. Yepez and agree with the findings and care plan. Subjective Pilar Garcia was doing okay today her pain in the morning was 6-7/10 and nausea was 7/10. Talked to pt., mother, and Dr. Lantigua through the day. We will continue with symptom management over the weekend and then reconsider if transfer is necessary on Thursday, given there will be no procedure done over the weekend at [facility]. Will focus on attempting bowel prep today and try TPN this evening. Continue to work on decreasing the amount of Dilaudid she is taking while at the same time addressing her pain. She did have a "decent" sized liquid bowel movement today. Review of Systems Review of Systems: Constitutional: denies fever, chills Cardiac: denies chest pain, palpitations Pulm: denies cough, shortness of breath GI: admits nausea and vomiting : denies urinary urgency, frequency or pain Physical Exam Physical Exam: Constitutional + cachectic ENMT external ear and nose normal, oropharynx normal Neck normal visual inspection Respiratory normal respiratory effort, lungs clear to auscultation Cardiovascular RRR, no murmur, no edema Gastrointestinal (Abdomen) - active bowel sounds - tender in the right lower quadrant - not rigid, no guarding - midline scar, G-tube in place, c/d/i, no warmth or erythema Skin no rashes, warm and dry Results & Data Results & Data ([facility]) Vital Signs (Past 12 Hours) Vital Signs Temp Pulse Resp BP Pulse Ox 02/10/20 08:31 36.6 C 91 H 16 102/70 99 CBC Results Results Complete Blood Count Results: RBC 3.62 M/uL (4.2-5.4) L 02/10/20 WBC 5.87 K/uL (4.8-10.8) 02/10/20 Hgb 11.1 g/dL (12.0-16.0) L 02/10/20 Hct 33.2 % (37-47) L 02/10/20 Plt Count 257 K/uL (130-400) 02/10/20 Chemistry (BMP) Results BMP Results: Sodium 142 mmol/L (136-145) 02/10/20 Potassium 3.0 mmol/L (3.5-5.1) L 02/10/20 Chloride 107 mmol/L (98-107) 02/10/20 BUN 5 mg/dl (7-18) L 02/10/20 Creatinine 0.58 mg/dl (0.6-1.2) L 02/10/20 Glucose 110 mg/dl (70-99) H 02/10/20 Resident Activity Tracking Resident Involvement: Resident Care Provided Care Provided: Adult [facility] Medicine
[2020-02-10] MEDS ORDERED: CENTRAL PN IV SCH (16:00)
[2020-02-10] MEDS ORDERED: TPN IV SCH (16:00)
[2020-02-10] MEDS ORDERED: POLYETHYLENE (MIRALAX) 17 GM PACK PO ONE (18:43)
[2020-02-10] MEDS: CETIRIZINE HCL 10 MG TABLET PO SCH (20:41)
[2020-02-10] MEDS: CYCLOBENZAPRINE HCL 5 MG TAB PO SCH (20:42)
[2020-02-11] MEDS ORDERED: LORazepam 0.5 MG/1 ML VIAL IV ONE (00:30)
[2020-02-11] MEDS: DEXTROSE 10% 1,000 ML IV PRN (00:38)
[2020-02-11] MEDS: D5W AND LACTATED RINGERS 1,000 ML IV SCH ×2 (02:31→14:22)
[2020-02-11] MEDS: HYDROmorphone INJ 0.5 MG/0.5 ML SYR IV PRN ×6 (02:34→22:16)
[2020-02-11 06:14] LABS: Basophils # (auto) 0.04 K/uL (0-0.2); Basophils % (auto) 0.7 %; Eosinophils # (auto) 0.44 K/uL (0-0.5); Hematocrit (blood only) 35.6 % (37-47); Hemoglobin 11.3 g/dL (12.0-16.0); Immature Granulocytes # (auto) 0.01 K/uL (0.00-0.02); Immature Granulocytes % (auto) 0.2 %; Lymphocytes # (auto) 1.85 K/uL (1.2-3.4); Lymphocytes % (auto) 33.5 %; Mean Corpuscular Hemoglobin 29.5 pg (25-34); Mean Corpuscular Hgb Conc 31.7 g/dL (32-36); Mean Platelet Volume 10.4 fL (7.4-10.4); Monocytes # (auto) 0.67 K/uL (0.11-0.59); Monocytes % (auto) 12.1 %; Neutrophils # (auto) 2.51 K/uL (1.4-6.5); Neutrophils % (auto) 45.5 %; Platelet Count 267 K/uL (130-400); RDW Coefficient of Variation 12.1 % (11.5-14.5); RDW Standard Deviation 40.7 fL (36.4-46.3); Red Blood Count 3.83 M/uL (4.2-5.4); White Blood Count 5.52 K/uL (4.8-10.8)
[2020-02-11 06:44] LABS: Albumin Globulin Ratio 1.2 (0.9-2); Albumin Level 3.1 gm/dl (3.4-5.0); BUN Creatinine Ratio 9.1 (10-20); Bilirubin,Total 0.2 mg/dl (0.2-1); Calcium 8.8 mg/dl (8.5-10.1); Creatinine Clr Calc Pharmacy 113.9 ml/min; Est GFR (African American) 148.8; Est GFR (Non-African American) 128.4; Globulin 2.5 gm/dl (2.5-4.0); Magnesium 1.7 mg/dl (1.8-2.4); Phosphorus 3.7 mg/dl (2.5-4.9); Potassium 3.5 mmol/L (3.5-5.1); Total Protein 5.6 gm/dl (6.4-8.2)
[2020-02-11] MEDS: HYDROCORTISONE SOD 15 MG in SYRINGE 0 ML IV SCH (09:59)
[2020-02-11] MEDS: LINACLOTIDE 145 MCG PO SCH ×2 (09:59→21:00)
[2020-02-11] MEDS: PANTOprazole 40 MG TAB PO SCH (09:59)
[2020-02-11] MEDS: FAMOTIDINE 40 MG TABLET PO SCH (09:59)
[2020-02-11] MEDS: GABAPENTIN 100 MG CAP PO SCH ×3 (09:59→21:01)
[2020-02-11] MEDS ORDERED: MAGNESIUM SULFATE PO ONE (10:30)
[2020-02-11] MEDS ORDERED: POTASSIUM SULFATE PO ONE (10:30)
[2020-02-11] MEDS ORDERED: SODIUM SULFATE PO ONE (10:30)
[2020-02-11] MEDS: MAGNESIUM SULFATE / D5W 1 GM/100 ML BAG IV SCH ×2 (11:12→14:16)
--- NOTE | 2020-02-11 12:00 | Hospitalist Progress Note ---
Date of Service February 11, 2020 Assessment & Plan Admission and Anticipated Discharge Date Admission Date: February 09, 2020 Pilar is a 30yo female with a PMHx significant for recurrent abdominal pain secondary to intestinal motility issues who was admitted for pain control before her follow-up visit with her specialist at [facility] for G-tube exchange, pain and nausea have improved with IV pain and nausea medication. Intractable abdominal pain possibly sec to bowel adhesions in setting of h/o gut dysmotility, -CT abd/pelvis with no new changes, notes bowel adhesions -KUB with nonobstructive bowel gas pattern and progression of enteric contrast into the bowels -Ultrasound of ovaries and of RLQ for hernia w/o concerning findings -NPO -GI consulted, rec. -symptomatic management and if unable to control symptoms to transfer to [facility] -G-tube on low intermittent suction -Dilaudid 0.5 Q2H for pain control, discussed limiting this due to concerns for worsening of motility -schedule IV Tylenol -Toradol 15mg IV q6hr PRN -continue home Miralax regimen, 17g TID PRN, as tolerable, as well as suppositories -will attempt Suprep today given prior success in the past with this regimen -Continue home cyclobenzaprine 5mg, dicyclomine, gabapentin, nortriptyline. -Continue to discuss care with Dr. Stanton Lantigua, at [facility] he advised to continue with symptoms management here Intractable nausea and vomiting, acute on chronic -TPN contributes -s/p Emend 02/07, 02/08 -Trimethobenzamide 300mg q6h PRN -Zofran IV 4mg PRN -Added Ativan for nausea which has worked in the past Malnutrition with BMI 16.3 -Patient not tolerating TPN due to nausea -Attempting to give TPN without lipid component as this has helped in the past -Will continue to encourage TPN as tolerable Hypokalemia, improved - 3.5 this AM - recheck in AM Hx. Adrenal insufficiency - diagnosed with stim test in 2017 - continue Hydrocortisone IV at home dose GI protection -continue home famotidine 40mg PO, home Protonix FEN/GI: Has G-tube, TPN 1400 ml DVT prophylaxis: ambulation CODE STATUS: Full Dispo: Med/Surg Supervising Physician Co-Signing Physician Notes Resident Physician Supervision Note: I independently interviewed and examined the patient and verified the solorzano history and physical, reviewed labs and image studies, discussed the case with the resident Dr. Yepez and agree with the findings and care plan. Subjective Doing okay this morning, she was having 8/10 nausea and 6/10 pain. She wanted to try the Suprep today since that has worked in the past to alleviate her constipation. She did have a bowel movement this morning that was wet. Pt. and mom asked about taking the lipids out of the TPN and decreasing the rate. She did not tolerate TPN overnight because of nausea. Review of Systems Review of Systems: Constitutional: denies fevers, chills Cardiac: denies chest pain, palpitations Pulm: denies shortness of breath GI: admits nausea and abdominal pain Physical Exam Physical Exam: Constitutional + cachectic ENMT external ear and nose normal, oropharynx normal Neck normal visual inspection Respiratory normal respiratory effort, lungs clear to auscultation Cardiovascular RRR, no murmur, no edema Gastrointestinal (Abdomen) - active bowel sounds - tender in the right lower quadrant - not rigid, no guarding - midline scar, G-tube in place, c/d/i, no warmth or erythema Skin no rashes, warm and dry Results & Data Results & Data ([facility]) Vital Signs (Past 12 Hours) Vital Signs Temp Pulse Resp BP Pulse Ox 02/11/20 07:07 36.5 C 101 H 16 100/69 99 CBC Results Results Complete Blood Count Results: RBC 3.83 M/uL (4.2-5.4) L 02/11/20 WBC 5.52 K/uL (4.8-10.8) 02/11/20 Hgb 11.3 g/dL (12.0-16.0) L 02/11/20 Hct 35.6 % (37-47) L 02/11/20 Plt Count 267 K/uL (130-400) 02/11/20 Chemistry (BMP) Results BMP Results: Sodium 142 mmol/L (136-145) 02/11/20 Potassium 3.5 mmol/L (3.5-5.1) 02/11/20 Chloride 109 mmol/L (98-107) H 02/11/20 BUN 5 mg/dl (7-18) L 02/11/20 Creatinine 0.54 mg/dl (0.6-1.2) L 02/11/20 Glucose 83 mg/dl (70-99) 02/11/20 Resident Activity Tracking Resident Involvement: Resident Care Provided Care Provided: Adult Hospital Medicine
[2020-02-11] MEDS: LORazepam 0.5 MG/1 ML VIAL IV PRN ×2 (13:00→18:50)
[2020-02-11] MEDS: HYDROCORTISONE SOD 10 MG in SYRINGE 0 ML IV SCH (14:17)
[2020-02-11] MEDS: ONDANSETRON INJ 2 MG/ML 2 ML VIAL IV PRN ×2 (15:31→22:16)
[2020-02-11] MEDS ORDERED: Custom Central Pn 1,400 ML in TPN BAG 0 ML IV SCH (16:00)
[2020-02-11] MEDS: CYCLOBENZAPRINE HCL 5 MG TAB PO SCH (21:00)
[2020-02-11] MEDS: CETIRIZINE HCL 10 MG TABLET PO SCH (21:01)
[2020-02-11] MEDS: KETOROLAC TROMETHAMINE 15 MG/ML VIAL IV PRN (21:02)
[2020-02-12] MEDS: LORazepam 0.5 MG/1 ML VIAL IV PRN ×3 (00:02→18:40)
[2020-02-12] MEDS: KETOROLAC TROMETHAMINE 15 MG/ML VIAL IV PRN (03:36)
[2020-02-12] MEDS: HYDROmorphone INJ 0.5 MG/0.5 ML SYR IV PRN ×5 (04:27→21:58)
[2020-02-12] MEDS: ONDANSETRON INJ 2 MG/ML 2 ML VIAL IV PRN ×3 (08:11→21:39)
[2020-02-12 08:22] LABS: Albumin Globulin Ratio 1.2 (0.9-2); Albumin Level 3.4 gm/dl (3.4-5.0); BUN Creatinine Ratio 19.8 (10-20); Bilirubin,Total 0.2 mg/dl (0.2-1); Calcium 9.1 mg/dl (8.5-10.1); Creatinine Clr Calc Pharmacy 102.9 ml/min; Est GFR (African American) 144.6; Est GFR (Non-African American) 124.7; Globulin 2.8 gm/dl (2.5-4.0); Potassium 4.3 mmol/L (3.5-5.1); Total Protein 6.2 gm/dl (6.4-8.2)
[2020-02-12] MEDS: PANTOprazole 40 MG TAB PO SCH (09:06)
[2020-02-12] MEDS: FAMOTIDINE 40 MG TABLET PO SCH (09:06)
[2020-02-12] MEDS: LINACLOTIDE 145 MCG PO SCH ×2 (09:06→21:44)
[2020-02-12] MEDS: GABAPENTIN 100 MG CAP PO SCH ×3 (09:06→21:44)
[2020-02-12] MEDS: HYDROCORTISONE SOD 15 MG in SYRINGE 0 ML IV SCH (09:06)
[2020-02-12] MEDS ORDERED: D5W AND LACTATED RINGERS 1,000 ML IV SCH (12:00)
[2020-02-12] MEDS: TRIMETHOBENZAMIDE HCL PO PRN (13:26)
[2020-02-12] MEDS: HYDROCORTISONE SOD 10 MG in SYRINGE 0 ML IV SCH (13:29)
[2020-02-12] MEDS ORDERED: Nursing to Pharmacy Communication SCH (15:30)
[2020-02-12] MEDS ORDERED: Custom Central Pn 1,400 ML in TPN BAG 0 ML IV SCH (16:00)
--- NOTE | 2020-02-12 18:00 | Hospitalist Progress Note ---
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 Intractable abdominal pain possibly sec to bowel adhesions in setting of h/o gut dysmotility, -CT abd/pelvis with no new changes, notes bowel adhesions -KUB with nonobstructive bowel gas pattern and progression of enteric contrast into the bowels -Ultrasound of ovaries and of RLQ for hernia w/o concerning findings -NPO -GI consulted, rec. -symptomatic management and if unable to control symptoms to transfer to [facility] -G-tube on low intermittent suction -Dilaudid 0.5 Q2H for pain control, discussed limiting this due to concerns for worsening of motility -schedule IV Tylenol -Toradol 15mg IV q6hr PRN -continue home Miralax regimen, 17g TID PRN, as tolerable, as well as suppositories -used Suprep with relief -Continue home cyclobenzaprine 5mg, dicyclomine, gabapentin, nortriptyline. -Continue to discuss care with Dr. Stanton Lantigua, at [facility] he advised to continue with symptoms management here and readdress transfer on 02/12 Intractable nausea and vomiting, acute on chronic worse today -TPN contributes -s/p Emend 02/07, 02/08 -Trimethobenzamide 300mg q6h PRN -Zofran IV 4mg PRN -Added Ativan for nausea which has worked in the past Malnutrition with BMI 16.3 -Patient not tolerating TPN due to nausea -Attempting to give TPN without lipid component as this has helped in the past -Will continue to encourage TPN as tolerable Hypokalemia, improved - 4.3 this AM - recheck in AM Hx. Adrenal insufficiency - diagnosed with stim test in 2017 - continue Hydrocortisone via IV at home dose GI protection -continue home famotidine 40mg PO, home Protonix FEN/GI: Has G-tube, TPN 1400 ml DVT prophylaxis: ambulation CODE STATUS: Full Dispo: Med/Surg Supervising Physician Co-Signing Physician Notes Resident Physician Supervision Note: I independently interviewed and examined the patient and verified the solorzano history and physical, reviewed labs and image studies, discussed the case with the resident Dr. Yepez and agree with the findings and care plan. Subjective Doing okay this morning, she was having 8/10 nausea and 4/10 pain. She tried Suprep yesterday and it improved her feeling of constipation. She did have multiple bowel movements this morning that were wet. Pt. and mom asked about taking the lipids out of the TPN and decreasing the rate. She tolerated TPN overnight without lipids. They were asking to advance her diet since she was feeling better. Review of Systems Review of Systems: Constitutional: denies fevers chills Cardiac: denies chest pain, palpitations Pulm: denies cough, shortness of breath GI: denies vomiting Physical Exam Physical Exam: Constitutional + cachectic ENMT external ear and nose normal, oropharynx normal Neck normal visual inspection Respiratory normal respiratory effort, lungs clear to auscultation Cardiovascular RRR, no murmur, no edema Gastrointestinal (Abdomen) - active bowel sounds - tender in the right lower quadrant (improved) - not rigid, no guarding - midline scar, G-tube in place, c/d/i, no warmth or erythema Skin no rashes, warm and dry Results & Data Results & Data ([facility]) Vital Signs (Past 12 Hours) Vital Signs Temp Pulse Resp BP Pulse Ox 02/12/20 16:53 36.7 C 99 H 16 102/71 97 02/12/20 07:54 36.8 C 98 H 14 105/74 98 CBC Results Results Complete Blood Count Results: RBC 3.83 M/uL (4.2-5.4) L 02/11/20 WBC 5.52 K/uL (4.8-10.8) 02/11/20 Hgb 11.3 g/dL (12.0-16.0) L 02/11/20 Hct 35.6 % (37-47) L 02/11/20 Plt Count 267 K/uL (130-400) 02/11/20 Chemistry (BMP) Results BMP Results: Sodium 144 mmol/L (136-145) 02/12/20 Potassium 4.3 mmol/L (3.5-5.1) 02/12/20 Chloride 110 mmol/L (98-107) H 02/12/20 BUN 12 mg/dl (7-18) 02/12/20 Creatinine 0.59 mg/dl (0.6-1.2) L 02/12/20 Glucose 99 mg/dl (70-99) 02/12/20 Resident Activity Tracking Resident Involvement: Resident Care Provided Care Provided: Adult Hospital Medicine
[2020-02-12] MEDS: CETIRIZINE HCL 10 MG TABLET PO SCH (21:44)
[2020-02-12] MEDS: CYCLOBENZAPRINE HCL 5 MG TAB PO SCH (21:44)
[2020-02-13] MEDS: HYDROmorphone INJ 0.5 MG/0.5 ML SYR IV PRN ×5 (02:30→20:59)
[2020-02-13] MEDS: LORazepam 0.5 MG/1 ML VIAL IV PRN ×3 (02:59→21:00)
[2020-02-13 07:04] LABS: Basophils # (auto) 0.04 K/uL (0-0.2); Basophils % (auto) 0.7 %; Eosinophils # (auto) 0.39 K/uL (0-0.5); Eosinophils % (auto) 6.6 %; Hemoglobin 12.2 g/dL (12.0-16.0); Immature Granulocytes # (auto) 0.01 K/uL (0.00-0.02); Immature Granulocytes % (auto) 0.2 %; Lymphocytes # (auto) 2.03 K/uL (1.2-3.4); Lymphocytes % (auto) 34.5 %; Mean Corpuscular Hgb Conc 32.1 g/dL (32-36); Mean Corpuscular Volume 93.4 fL (80-100); Mean Platelet Volume 10.3 fL (7.4-10.4); Monocytes # (auto) 0.73 K/uL (0.11-0.59); Monocytes % (auto) 12.4 %; Neutrophils # (auto) 2.69 K/uL (1.4-6.5); Neutrophils % (auto) 45.6 %; Platelet Count 285 K/uL (130-400); RDW Coefficient of Variation 12.2 % (11.5-14.5); RDW Standard Deviation 41.4 fL (36.4-46.3); Red Blood Count 4.07 M/uL (4.2-5.4); White Blood Count 5.89 K/uL (4.8-10.8)
[2020-02-13 07:36] LABS: Albumin Level 3.4 gm/dl (3.4-5.0); BUN Creatinine Ratio 26.2 (10-20); Calcium 9.3 mg/dl (8.5-10.1); Creatinine Clr Calc Pharmacy 95.9 ml/min; Est GFR (African American) 141.5; Est GFR (Non-African American) 122.1; Magnesium 2.1 mg/dl (1.8-2.4); Potassium 4.1 mmol/L (3.5-5.1)
[2020-02-13 07:39] LABS: Albumin Globulin Ratio 1.2 (0.9-2); Bilirubin,Total 0.2 mg/dl (0.2-1); Globulin 2.9 gm/dl (2.5-4.0); Phosphorus 4.8 mg/dl (2.5-4.9); Total Protein 6.3 gm/dl (6.4-8.2)
[2020-02-13] MEDS: HYDROCORTISONE SOD 15 MG in SYRINGE 0 ML IV SCH (10:26)
[2020-02-13] MEDS: LINACLOTIDE 145 MCG PO SCH ×2 (10:27→22:05)
[2020-02-13] MEDS: GABAPENTIN 100 MG CAP PO SCH ×3 (10:27→22:06)
[2020-02-13] MEDS: FAMOTIDINE 40 MG TABLET PO SCH (10:28)
[2020-02-13] MEDS: PANTOprazole 40 MG TAB PO SCH (10:28)
[2020-02-13] MEDS: ONDANSETRON INJ 2 MG/ML 2 ML VIAL IV PRN ×2 (10:33→18:29)
[2020-02-13] MEDS: DICYCLOMINE HCL 10 MG CAP PO PRN (11:20)
--- NOTE | 2020-02-13 11:56 | Pharmacy Report ---
PHA: Parenteral Nutrition Con - Date of Service February 13, 2020 - Scope Pharmacy was consulted on 02/08/2020 to manage parenteral nutrition orders for this patient. - Subjective The patient is currently on day #5 of central parenteral nutrition for gut dysmotility/chronic TPN use at home. - Objective Height: 5 ft 6 in Weight: 45.7 kg Diet: Regular (patient with nausea) Intake & Output (24hrs):: Intake & Output 02/11/20 02/12/20 02/13/20 02/14/20 06:59 06:59 06:59 06:59 Intake Total 2100.770 / 2100.770 1676 / 1676 1661.167 / 1661.167 Output Total 1251 / 1251 4 / 1100 / 1100 Balance 849.770 / 818.541 9598 / 1672 561.167 / 561.167 Weight 46.5 kg 45.9 kg 45.7 kg Laboratory Data (Last 24 Hr):: 02/13/20 06:43 Sodium 141 Potassium 4.1 Chloride 107 Carbon Dioxide 29 BUN 17 Creatinine 0.63 Glucose 93 Calcium 9.3 Phosphorus 4.8 Magnesium 2.1 Total Bilirubin 0.2 AST 31 ALT 53 Alkaline Phosphatase 62 Albumin 3.4 Nutrition Assessment:: Please refer to the Notes section of the EMR for the most recent actuarial director note. - Assessment * Patient is on chronic cyclic TPN at home that runs over 14 hrs. Patient with chronic nausea. TPN seems to make it worse. She refused the TPN on 02/08/20. * Last two days, patient has allowed TPN to infuse from approximately 2130 to 1200. Spoke with RN and patient is still c/o significant nausea and being medicated routinely with zofran. Patient is requesting different medication for nausea. * Lipids will continue to be held to help with nausea. - Plan For day #5 of TPN administration, the following will be ordered: Macronutrients Amino acids 90 grams/day Dextrose 250 grams/day Micronutrients Sodium chloride 70 mEq Potassium chloride 20 mEq Potassium acetate 100 mEq Magnesium sulfate 8.12 mEq Calcium gluconate 9.3 mEq Multivitamins 10 mL Trace Elements 1 mL Folic acid 1 mg Total volume 1369 mL to be infused over 24 hrs will provide 1210 kcal/day Labs, as indicated, will be ordered per protocol Pharmacy will continue to follow and adjust parenteral nutrition orders on a daily basis. Thank you for allowing us to participate in the care of this patient.
[2020-02-13] MEDS: DEXTROSE 10% 1,000 ML IV PRN (12:06)
--- NOTE | 2020-02-13 13:04 | Discharge Summary ---
Date of Service February 14, 2020 Admission HPI Per Admitting Provider Pilar is a 30yo female with a PMHx significant for recurrent abdominal pain secondary to intestinal motility issues who was admitted for pain control before her follow-up visit with her specialist at [facility] on Jan. She states that since her last visit to the ED 2 days prior, she has been having constant abdominal pain with nausea. Mom is present and also at bedside. Mom states that she is concerned something might be missed "once more" with daughter. Pilar states her pain is mostly in the RLL and feels like her intestines are "twisting". Mom states that they were told she has intestines in her pelvis and is concerned about obstruction or that "something is being missed". Pilar is a non smoker, does not drink alcohol and does not use recreational drugs. She lives at home with mom and dad and does not work as she says she has been dealing with her GI issues for the last 4 years. Discharge Exam Constitutional WD/WN, vitals as above + thin Eyes PERRL, conjunctivae normal, anicteric sclerae ENMT external ear and nose normal, oropharynx normal Respiratory normal respiratory effort, lungs clear to auscultation Cardiovascular RRR, no murmur, no edema Gastrointestinal (Abdomen) Inspection/Auscultation: normal bowel sounds Percussion/Palpation: + guarding and abdomen soft; abdomen nontender and abdomen not rigid G-tube in place, with surrounding skin c/d/i, no warmth or erythema Musculoskeletal no cyanosis or clubbing, extremities motor strength 5/5 Skin no rashes, warm and dry Psychiatric A+Ox3, euthymic affect Discharge Data Allergies Allergy/AdvReac Type Severity Reaction Status Date / Time amoxicillin Allergy Intermediate RASH Verified 02/04/20 00:01 Bactrim Allergy Intermediate RASH Verified 08/13/17 12:16 cefazolin Allergy Intermediate rash Verified 02/04/20 00:01 Cephalosporins Allergy Intermediate HIVES Verified 02/04/20 00:01 clavulanic acid Allergy Intermediate HIVES Verified 02/04/20 00:01 Penicillins Allergy Intermediate HIVES Verified 02/04/20 00:01 prochlorperazine Allergy Intermediate HIVES Verified 02/04/20 00:01 promethazine Allergy Intermediate hives, Verified 02/04/20 00:01 throat swelling sulfamethoxazole Allergy Intermediate RASH Verified 02/04/20 00:01 sumatriptan Allergy Intermediate RASH Verified 02/04/20 00:01 trimethoprim Allergy Intermediate RASH Verified 02/04/20 00:01 metoclopramide AdvReac Severe anxiety/ Verified 02/04/20 00:01 jittery diphenhydramine AdvReac Intermediate Tachycardia, Verified 02/04/20 00:01 Severe Anxiety WITH IV ONLY erythromycin base AdvReac Intermediate GI SYMPTOMS Verified 02/04/20 00:01 citalopram [From Celexa] AdvReac Unknown Verified 02/04/20 00:01 MULTIVITAMIN Allergy Intermediate Unknown Uncoded 02/04/20 00:01 Consultations 02/07/20 19:20 ED Decision to Admit Stat 02/08/20 16:39 Consult Gastroenterology Routine Ordered Studies 02/07/20 15:15 CT abd pelvis oral and IV con Stat 02/08/20 15:00 US pelvic limited Urgent 02/08/20 15:30 US abdomen ltd hernia Urgent Hospital Course (1) Right lower quadrant abdominal pain: Pilar is a 30yo female with a PMHx significant for 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 Gut dysmotility: -CT abd/pelvis with no new changes, notes bowel adhesions -Ultrasound of ovaries and of RLQ for hernia w/o concerning findings -Continue home cyclobenzaprine 5mg, dicylcomine, gabapentin, nortriptiline. Continue to discuss care with Dr. Stanton Lantigua, at [facility]. -NPO -GI consulted -schedule Tylenol IV q6h -Toradol 15mg IV q6hr PRN -continue home Miralax regimen, 17g TID PRN, as tolerable -KUB this AM with nonobstructive bowel gas pattern and progression of enteric contrast into the bowels Intractable nausea: -TPN contributes -s/p Emend 02/07 -Trimethobenzamide 300mg q6h PRN -Zofran IV 4mg PRN -Added Ativan for nausea which has worked in the past Malnutrition: -Patient not tolerating TPN due to nausea -Started D5LR at maintenance 100ml/hr Hypokalemia: - 3.4 this AM - repleted with 2 K-rider - recheck in AM Adrenal insufficiency - continue Hydrocortisone IV Total Time Total Time Spent Total Time Spent (In Minutes): 30 Discharge Plan Discharge Items Patient Disposition: Home - Self-Care Reason For Visit: ABDOMINAL PAIN Discharge Diagnosis: Gastric Dysmotility Condition on Discharge: Good Activity: Per Instructions section Non-emergency contact: Primary Care Provider, Specialist and Oxidation Engineer Call non-emergency contact if: you have any medication questions, your symptoms worsen and your pain is concerning for you Follow-up/Referrals: Mariah Addison DO [Primary Care Provider] - Diet: Other - See Diet Comment Diet Comment: Advance TPN feeds as directed by [facility] dietitian Natali Attending Provider Instructions: You were seen and admitted for concern of worsening abdominal pain in the setting of known history of intestinal motility issues. During this admission, in continued conversations with your [facility]' cognos architect Dr. Lantigua your symptoms were limited and you were observed for continued improvement. Now that you are going home, we have arranged for a new COVID-19 screen to allow for you to make it to your appointments with your medical team at [facility]. Over the coming days, it is important to continue to monitor your symptoms and abdominal pain and titrate your nigh-time TPN as directed by Dr. Lantigua. Pending Studies at Discharge: No Stand-Alone Forms: My [facility], Smoking Cessation Medications and DC Order Prescriptions: Continued famotidine 40 mg tablet 40 mg PO QAM RF: 0 polyethylene glycol 3350 [Miralax] 17 gram powder in packet 17 g PO TID PRN (Reason: Constipation) RF: 0 nortriptyline 10 mg capsule 5 mg PO HS RF: 0 ondansetron 4 mg tablet,disintegrating 4 mg translingual Q6H PRN (Reason: Nausea) RF: 0 cyclobenzaprine 5 mg tablet 5 mg PO HS RF: 0 hydrocortisone 10 mg tablet See Rx Instructions .ROUTE .COMPLEX RF: 0 trimethobenzamide 300 mg Capsule 300 mg PO Q6H PRN (Reason: Nausea And Vomiting) RF: 0 cetirizine [Zyrtec] 10 mg Tablet 10 mg PO HS RF: 0 hyoscyamine sulfate [Levsin/SL] 0.125 mg Tablet, Sublingual 0.125 mg SUBLINGUAL Q4H PRN (Reason: Abdominal Cramping) RF: 0 dicyclomine 10 mg Capsule 10 - 20 mg PO Q6H PRN (Reason: Abdominal Pain) RF: 0 Linzess 145 mcg Capsule 145 mcg PO BID RF: 0 pantoprazole [Protonix] 40 mg tablet,delayed release (DR/EC) 40 mg PO QAM RF: 0 lorazepam [Ativan] 2 mg/mL Solution 0.5 mg buccal Q6H PRN (Reason: Nausea) RF: 0 gabapentin 100 mg Capsule 200 mg PO TID RF: 0 Admission Data Admit Date/Time: 02/09/20 15:58 Attending Provider: Ramses Layne Admit Provider: Li Donald Primary Care Provider: Mariah Addison Other Providers: Viridiana Sharma ; Elpidio Velasco ; Catrina Turner Resident Activity Tracking Resident Involvement: Resident Care Provided Care Provided: Adult Hospital Medicine
[2020-02-13] MEDS: HYDROCORTISONE SOD 10 MG in SYRINGE 0 ML IV SCH (13:40)
[2020-02-13] MEDS ORDERED: CENTRAL PN IV SCH (16:00)
[2020-02-13] MEDS ORDERED: TPN IV SCH (16:00)
--- NOTE | 2020-02-13 18:01 | Hospitalist Progress Note ---
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 Gut dysmotility: -CT abd/pelvis with no new changes, notes bowel adhesions -Ultrasound of ovaries and of RLQ for hernia w/o concerning findings -Continue home cyclobenzaprine 5mg, dicylcomine, gabapentin, nortriptiline. Continue to discuss care with Dr. Stanton Lantigua, at [facility]. -schedule Tylenol IV q6h -Toradol 15mg IV q6hr PRN, Dilaudid 0.5mg Q2h PRN -continue home Miralax regimen, 17g TID PRN, as tolerable Intractable nausea: -TPN contributes -s/p Emend 02/07 -Trimethobenzamide 300mg q6h PRN -Zofran IV 4mg PRN -Added Ativan for nausea which has worked in the past Malnutrition: -TPN to be held overnight -Started D5LR at maintenance 100ml/hr Adrenal insufficiency - continue Hydrocortisone Admission and Anticipated Discharge Date Admission Date: February 09, 2020 Supervising Physician Co-Signing Physician Notes I personally examined the patient and verified all solorzano points of history and exam, discussed case, and agree with decision making with Dr Babin. ongoing abdominal pain. worried about going home. has [facility] follow ups on thu/. pain better than it was - initially wanted to go home then later worried about pain control vitals noted nad at times, tearful at other times heent nc at mmm. abd soft nd. mod R middle abd tenderness no guarding no rebound elsewhere not really tender. PEG site c/d/i. no peritoneal signs abdominal pain - suspect adhesional. ongoing pain control/time - hopefully will improve, if not then may need to consider surgery to lyse. supportive care for now. fortunately no s/s catastrophe. revisited this evening to discuss situation further w pt/mother - time in ~5p time out ~545p >30mins face to face in discussions/planning/counselling/etc - separate from earlier visit. Subjective Patient continuing to have abdominal pain throughout the day, early on in the day she graded the pain as 4-5/10 with then increases throughout the day with increased oral intake. Denies nausea and vomiting, but feels like she has fallen back towards how she was when she originally presented to the hospital. Does sporadically get these kinds of feelings following bowel prep, and they will last approximately two days before she is improved. She is now two days out from bowel prep. Review of Systems Review of Systems: All systems reviewed & are unremarkable except as noted in Subjective Physical Exam Constitutional: WD/WN, vitals as above + thin Eyes: PERRL, conjunctivae normal, anicteric sclerae ENMT: external ear and nose normal, oropharynx normal Respiratory: normal respiratory effort, lungs clear to auscultation Cardiovascular: RRR, no murmur, no edema Gastrointestinal (Abdomen): Inspection/Auscultation: normal bowel sounds Percussion/Palpation: + guarding and abdomen soft; abdomen nontender and abdomen not rigid Musculoskeletal: no cyanosis or clubbing, extremities motor strength 5/5 Skin: no rashes, warm and dry Psychiatric: A+Ox3, euthymic affect Results & Data Results & Data ([facility]) Vital Signs (Past 12 Hours) Vital Signs Temp Pulse Pulse Resp BP BP Pulse Ox 02/13/20 16:26 37.0 C 110 H 91 H 16 103/68 101/68 100 02/13/20 15:41 37.0 C 110 H 16 103/68 100 02/13/20 07:56 36.6 C 102 H 18 95/65 L 96 Laboratory Results 02/13/20 02/13/20 02/13/20 Range/Units 13:58 13:58 06:43 WBC 5.89 (4.8-10.8) K/uL RBC 4.07 L (4.2-5.4) M/uL Hgb 12.2 (12.0-16.0) g/dL Hct 38.0 (37-47) % MCV 93.4 (80-100) fL MCH 30.0 (25-34) pg MCHC 32.1 (32-36) g/dL RDW Std Deviation 41.4 (36.4-46.3) fL RDW Coeff of Tim 12.2 (11.5-14.5) % Plt Count 285 (130-400) K/uL MPV 10.3 (7.4-10.4) fL Immature Gran % (Auto) 0.2 % Neut % (Auto) 45.6 % Lymph % (Auto) 34.5 % Avery % (Auto) 12.4 % Eos % (Auto) 6.6 % Baso % (Auto) 0.7 % Neut # (Auto) 2.69 (1.4-6.5) K/uL Lymph # (Auto) 2.03 (1.2-3.4) K/uL Avery # (Auto) 0.73 H (0.11-0.59) K/uL Eos # (Auto) 0.39 (0-0.5) K/uL Baso # (Auto) 0.04 (0-0.2) K/uL Immature Gran # (Auto) 0.01 (0.00-0.02) K/uL Sodium (136-145) mmol/L Potassium (3.5-5.1) mmol/L Chloride (98-107) mmol/L Carbon Dioxide (21-32) mmol/L Anion Gap (3-11) BUN (7-18) mg/dl Creatinine (0.6-1.2) mg/dl Est Cr Clr Drug Dosing ml/min Est GFR ( Amer) Est GFR (Non-Af Amer) BUN/Creatinine Ratio (10-20) Glucose (70-99) mg/dl POC Glucose (70-99) mg/dl Calcium (8.5-10.1) mg/dl Phosphorus (2.5-4.9) mg/dl Magnesium (1.8-2.4) mg/dl Total Bilirubin (0.2-1) mg/dl AST (15-37) U/L ALT (12-78) U/L Alkaline Phosphatase (45-117) U/L Total Protein (6.4-8.2) gm/dl Albumin (3.4-5.0) gm/dl Globulin (2.5-4.0) gm/dl Albumin/Globulin Ratio (0.9-2) COVID-19 Eval Order [facility] SARS-CoV-2, RNA, NAAT NEGATIVE (NEGATIVE) 02/13/20 02/12/20 Range/Units 06:43 18:24 WBC (4.8-10.8) K/uL RBC (4.2-5.4) M/uL Hgb (12.0-16.0) g/dL Hct (37-47) % MCV (80-100) fL MCH (25-34) pg MCHC (32-36) g/dL RDW Std Deviation (36.4-46.3) fL RDW Coeff of Tim (11.5-14.5) % Plt Count (130-400) K/uL MPV (7.4-10.4) fL Immature Gran % (Auto) % Neut % (Auto) % Lymph % (Auto) % Avery % (Auto) % Eos % (Auto) % Baso % (Auto) % Neut # (Auto) (1.4-6.5) K/uL Lymph # (Auto) (1.2-3.4) K/uL Avery # (Auto) (0.11-0.59) K/uL Eos # (Auto) (0-0.5) K/uL Baso # (Auto) (0-0.2) K/uL Immature Gran # (Auto) (0.00-0.02) K/uL Sodium 141 (136-145) mmol/L Potassium 4.1 (3.5-5.1) mmol/L Chloride 107 (98-107) mmol/L Carbon Dioxide 29 (21-32) mmol/L Anion Gap 5.0 (3-11) BUN 17 (7-18) mg/dl Creatinine 0.63 (0.6-1.2) mg/dl Est Cr Clr Drug Dosing 95.9 ml/min Est GFR ( Amer) 141.5 Est GFR (Non-Af Amer) 122.1 BUN/Creatinine Ratio 26.2 H (10-20) Glucose 93 (70-99) mg/dl POC Glucose 113 H (70-99) mg/dl Calcium 9.3 (8.5-10.1) mg/dl Phosphorus 4.8 (2.5-4.9) mg/dl Magnesium 2.1 (1.8-2.4) mg/dl Total Bilirubin 0.2 (0.2-1) mg/dl AST 31 (15-37) U/L ALT 53 (12-78) U/L Alkaline Phosphatase 62 (45-117) U/L Total Protein 6.3 L (6.4-8.2) gm/dl Albumin 3.4 (3.4-5.0) gm/dl Globulin 2.9 (2.5-4.0) gm/dl Albumin/Globulin Ratio 1.2 (0.9-2) COVID-19 Eval Order SARS-CoV-2, RNA, NAAT (NEGATIVE) Medications Administered Current Inpatient Medications Bisacodyl (Bisacodyl 10 Mg Supp) 10 mg AL DAILY PRN PRN Reason: Constipation Stop: 03/10/20 09:48 Cetirizine HCl (Cetirizine Hcl 10 Mg Tablet) 10 mg PO HS EMERALD Stop: 03/09/20 20:59 Last Admin: 02/12/20 21:44 Dose: 10 mg Documented by: Chlorpromazine HCl (Chlorpromazine Hcl 25 Mg Tablet) 25 mg PO HS PRN PRN Reason: hiccups Stop: 03/11/20 00:06 Last Admin: 02/10/20 00:17 Dose: 25 mg Documented by: Cyclobenzaprine HCl (Cyclobenzaprine Hcl 5 Mg Tab) 5 mg PO HS EMERALD Stop: 03/09/20 20:59 Last Admin: 02/12/20 21:44 Dose: 5 mg Documented by: Dextrose (Dextrose 50% 50 Ml Syringe) 25 - 50 ml IV UD PRN; Protocol PRN Reason: Hypoglycemia Protocol Stop: 03/09/20 13:47 Last Admin: 02/08/20 14:09 Dose: 25 ml Documented by: Dicyclomine HCl (Dicyclomine Hcl 10 Mg Cap) 10 - 20 mg PO Q6H PRN PRN Reason: Abdominal Pain Stop: 03/08/20 22:44 Last Admin: 02/13/20 11:20 Dose: 10 mg Documented by: Famotidine (Famotidine 40 Mg Tablet) 40 mg PO QAM EMERALD Stop: 03/09/20 08:59 Last Admin: 02/13/20 10:28 Dose: 40 mg Documented by: Gabapentin (Gabapentin 100 Mg Cap) 200 mg PO TID EMERALD Stop: 03/09/20 08:59 Last Admin: 02/13/20 14:11 Dose: 200 mg Documented by: Glucagon (Glucagon For Inj 1 Mg Vial) 1 mg SQ UD PRN; Protocol PRN Reason: Hypoglycemia Protocol Stop: 03/09/20 13:47 Glucose (Glucose 10 Tabs/Tube) 4 - 8 tabs PO UD PRN; Protocol PRN Reason: Hypoglycemia Protocol Stop: 03/09/20 13:47 Glucose (Glucose 40% Gel 15 Gm Tube) 15 - 30 gm PO UD PRN; Protocol PRN Reason: Hypoglycemia Protocol Stop: 03/09/20 13:47 Heparin Sodium (Porcine) (Heparin 100 Unit/Ml 5ml Flush) 5 ml IV PRN PRN; Protocol PRN Reason: Flush Stop: 03/09/20 00:38 Last Admin: 02/08/20 15:32 Dose: 5 ml Documented by: Hydromorphone HCl (Hydromorphone Inj 0.5 Mg/0.5 Ml Syr) 0.5 mg IV Q2H PRN PRN Reason: Pain Stop: 02/22/20 21:17 Last Admin: 02/13/20 12:12 Dose: 0.5 mg Documented by: Hyoscyamine (Hyoscyamine Sulfate 0.125 Mg Tab) 0.125 mg SL Q4H PRN PRN Reason: Abdominal Cramping Stop: 03/08/20 22:44 Dextrose (D10w) 1,000 mls @ 0 mls/hr IV .Q0M PRN PRN Reason: protocol (see label comments) Stop: 03/09/20 12:33 Last Admin: 02/13/20 12:06 Dose: 58.3 mls/hr Documented by: Lorazepam (Ativan) 0.5 mg in 1 mls @ 1 mls/min IV Q4H PRN PRN Reason: Nausea Stop: 03/09/20 14:32 Last Admin: 02/13/20 11:50 Dose: 1 mls/min Documented by: Hydrocortisone Sodium (Succinate 15 mg/ Syringe) 0.3 mls @ 4 mls/min IV QAM EMERALD Stop: 03/10/20 08:59 Last Admin: 02/13/20 10:26 Dose: 4 mls/min Documented by: Hydrocortisone Sodium (Succinate 10 mg/ Syringe) 0.2 mls @ 4 mls/min IV 1400 EMERALD Stop: 03/10/20 13:59 Last Admin: 02/13/20 13:40 Dose: 4 mls/min Documented by: Nutrition (Parenteral) 1,369 (ml/ TPN BAG) 1,369 mls @ 57.042 mls/hr IV .Q24H EMERALD; Protocol Stop: 02/14/20 15:59 Last Admin: 02/13/20 17:59 Dose: Not Given Documented by: Linaclotide (Linaclotide 145 Mcg) 1 ea PO BID EMERALD Stop: 03/10/20 20:59 Last Admin: 02/13/20 10:27 Dose: 1 ea Documented by: Miscellaneous (Carbohydrates For Hypoglycemia ) 15 - 30 gm PO UD PRN PRN Reason: Hypoglycemia Protocol Stop: 03/09/20 13:47 Last Admin: 02/08/20 13:45 Dose: 15 gm Documented by: Miscellaneous (Nortriptyline Hcl - Order Awaiting Action) 1 ea N/A QS EMERALD Stop: 03/11/20 00:00 Last Admin: 02/13/20 10:25 Dose: Not Given Documented by: Miscellaneous Information (Tpn/Ppn Consult Pharmacy) 1 ea N/A UD PRN PRN Reason: Consult Stop: 03/09/20 00:15 Ondansetron HCl (Ondansetron Inj 2 Mg/Ml 2 Ml Vial) 4 mg IV Q6H PRN PRN Reason: Nausea Stop: 03/08/20 22:44 Last Admin: 02/13/20 10:33 Dose: 4 mg Documented by: Pantoprazole Sodium (Pantoprazole 40 Mg Tab) 40 mg PO QAM EMERALD Stop: 03/09/20 08:59 Last Admin: 02/13/20 10:28 Dose: 40 mg Documented by: Polyethylene Glycol (Polyethylene (Miralax) 17 Gm Pack) 17 gm PO TID PRN PRN Reason: Constipation Stop: 03/08/20 22:44 Last Admin: 02/10/20 15:24 Dose: 17 gm Documented by: Sterile Water (Tube Feeding Water Flush) 30 ea GT Q4H PRN PRN Reason: as needed Stop: 03/09/20 00:00 Trimethobenzamide HCl (Trimethobenzamide Hcl) 1 ea PO Q6H PRN PRN Reason: n&v Stop: 03/09/20 00:18 Last Admin: 02/12/20 13:26 Dose: 1 ea Documented by: Resident Activity Tracking Resident Involvement: Resident Care Provided Care Provided: Adult [facility]
--- NOTE | 2020-02-13 19:23 | Billing Data ---
Date of Service February 13, 2020 Coding Level of Care Code 59737 Prolonged Care (int'l)
--- NOTE | 2020-02-13 19:23 | Billing Data ---
Date of Service February 13, 2020 Coding Level of Care Code 40249 Subseq Hosp Care Lvl 3
[2020-02-13] MEDS: HEPARIN 100 UNIT/ML 5ML FLUSH IV PRN (21:01)
[2020-02-13] MEDS: CYCLOBENZAPRINE HCL 5 MG TAB PO SCH (22:06)
[2020-02-13] MEDS: CETIRIZINE HCL 10 MG TABLET PO SCH (22:06)
[2020-02-14] MEDS: ONDANSETRON INJ 2 MG/ML 2 ML VIAL IV PRN ×3 (00:02→11:29)
[2020-02-14] MEDS: HYDROmorphone INJ 0.5 MG/0.5 ML SYR IV PRN ×3 (00:02→05:49)
[2020-02-14] MEDS ORDERED: D5W AND LACTATED RINGERS 1,000 ML IV SCH (05:45)
[2020-02-14 06:40] LABS: BUN Creatinine Ratio 14.8 (10-20); Calcium 9.3 mg/dl (8.5-10.1); Creatinine Clr Calc Pharmacy 76.5 ml/min; Est GFR (African American) 118.1; Est GFR (Non-African American) 101.9; Magnesium 1.9 mg/dl (1.8-2.4); Phosphorus 5.3 mg/dl (2.5-4.9); Potassium 3.7 mmol/L (3.5-5.1)
[2020-02-14] MEDS: LINACLOTIDE 145 MCG PO SCH (10:13)
[2020-02-14] MEDS: PANTOprazole 40 MG TAB PO SCH (10:14)
[2020-02-14] MEDS: HYDROCORTISONE SOD 15 MG in SYRINGE 0 ML IV SCH (10:14)
[2020-02-14] MEDS: GABAPENTIN 100 MG CAP PO SCH ×2 (10:14→13:22)
[2020-02-14] MEDS: FAMOTIDINE 40 MG TABLET PO SCH (10:15)
[2020-02-14] MEDS: HEPARIN 100 UNIT/ML 5ML FLUSH IV PRN ×2 (10:20→10:57)
[2020-02-14] MEDS: TRIMETHOBENZAMIDE HCL PO PRN (10:20)
--- NOTE | 2020-02-14 12:14 | Discharge Summary ---
Date of Service February 14, 2020 Principal Diagnosis Gut Dysmotility Discharge Exam Constitutional WD/WN, vitals as above + thin Eyes PERRL, conjunctivae normal, anicteric sclerae ENMT external ear and nose normal, oropharynx normal Respiratory normal respiratory effort, lungs clear to auscultation Cardiovascular RRR, no murmur, no edema Gastrointestinal (Abdomen) Inspection/Auscultation: normal bowel sounds Percussion/Palpation: + guarding and abdomen soft; abdomen nontender and abdomen not rigid Musculoskeletal no cyanosis or clubbing, extremities motor strength 5/5 Skin no rashes, warm and dry Neurologic PERRL, EOMI, accommodation nl, no face palsy, no dysarthria Psychiatric A+Ox3, euthymic affect Discharge Data Allergies Allergy/AdvReac Type Severity Reaction Status Date / Time amoxicillin Allergy Intermediate RASH Verified 02/04/20 00:01 Bactrim Allergy Intermediate RASH Verified 08/13/17 12:16 cefazolin Allergy Intermediate rash Verified 02/04/20 00:01 Cephalosporins Allergy Intermediate HIVES Verified 02/04/20 00:01 clavulanic acid Allergy Intermediate HIVES Verified 02/04/20 00:01 Penicillins Allergy Intermediate HIVES Verified 02/04/20 00:01 prochlorperazine Allergy Intermediate HIVES Verified 02/04/20 00:01 promethazine Allergy Intermediate hives, Verified 02/04/20 00:01 throat swelling sulfamethoxazole Allergy Intermediate RASH Verified 02/04/20 00:01 sumatriptan Allergy Intermediate RASH Verified 02/04/20 00:01 trimethoprim Allergy Intermediate RASH Verified 02/04/20 00:01 metoclopramide AdvReac Severe anxiety/ Verified 02/04/20 00:01 jittery diphenhydramine AdvReac Intermediate Tachycardia, Verified 02/04/20 00:01 Severe Anxiety WITH IV ONLY erythromycin base AdvReac Intermediate GI SYMPTOMS Verified 02/04/20 00:01 citalopram [From Celexa] AdvReac Unknown Verified 02/04/20 00:01 MULTIVITAMIN Allergy Intermediate Unknown Uncoded 02/04/20 00:01 Consultations 02/07/20 19:20 ED Decision to Admit Stat 02/08/20 16:39 Consult Gastroenterology Routine Ordered Studies 02/07/20 15:15 CT abd pelvis oral and IV con Stat 02/08/20 15:00 US pelvic limited Urgent 02/08/20 15:30 US abdomen ltd hernia Urgent Hospital Course (1) Right lower quadrant abdominal pain: Pilar is a 30yo female with a PMHx significant for 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 Gut dysmotility: -CT abd/pelvis with no new changes, notes bowel adhesions -Ultrasound of ovaries and of RLQ for hernia w/o concerning findings -Continue home cyclobenzaprine 5mg, dicylcomine, gabapentin, nortriptiline. -Continue to discuss care with Dr. Stanton Lantigua, at [facility]. -continue home Miralax regimen, 17g TID PRN, as tolerated -to have follow-up with GI as out-patient on Malnutrition: -TPN to be resumed per Dr. Lantigua's orders Adrenal insufficiency - continue Hydrocortisone Total Time Total Time Spent Total Time Spent (In Minutes): <30 Discharge Plan Discharge Items Patient Disposition: Home - Self-Care Reason For Visit: ABDOMINAL PAIN Discharge Diagnosis: Gastric Dysmotility Condition on Discharge: Good Activity: Per Instructions section Non-emergency contact: Primary Care Provider, Specialist and Pay Station Department Manager Call non-emergency contact if: you have any medication questions, your symptoms worsen and your pain is concerning for you Follow-up/Referrals: Mariah Addison, [Primary Care Provider] - Diet: Other - See Diet Comment Diet Comment: Advance TPN feeds as directed by [facility] dietitian Addtl Attending Provider Instructions: You were seen and admitted for concern of worsening abdominal pain in the setting of known history of intestinal motility issues. During this admission, in continued conversations with your [facility]' disintegrator Dr. Lantigua your symptoms were limited and you were observed for continued improvement. Now that you are going home, we have arranged for a new COVID-19 screen to allow for you to make it to your appointments with your medical team at [facility]. Over the coming days, it is important to continue to monitor your symptoms and abdominal pain and titrate your nigh-time TPN as directed by Dr. Lantigua. Pending Studies at Discharge: No Stand-Alone Forms: [employer], Opioid Pain Management, Work/School Release (Inpt), Smoking Cessation Medications and DC Order Prescriptions: Continued famotidine 40 mg tablet 40 mg PO QAM RF: 0 polyethylene glycol 3350 [Miralax] 17 gram powder in packet 17 g PO TID PRN (Reason: Constipation) RF: 0 nortriptyline 10 mg capsule 5 mg PO HS RF: 0 ondansetron 4 mg tablet,disintegrating 4 mg translingual Q6H PRN (Reason: Nausea) RF: 0 cyclobenzaprine 5 mg tablet 5 mg PO HS RF: 0 hydrocortisone 10 mg tablet See Rx Instructions .ROUTE .COMPLEX RF: 0 trimethobenzamide 300 mg Capsule 300 mg PO Q6H PRN (Reason: Nausea And Vomiting) RF: 0 cetirizine [Zyrtec] 10 mg Tablet 10 mg PO HS RF: 0 hyoscyamine sulfate [Levsin/SL] 0.125 mg Tablet, Sublingual 0.125 mg SUBLINGUAL Q4H PRN (Reason: Abdominal Cramping) RF: 0 dicyclomine 10 mg Capsule 10 - 20 mg PO Q6H PRN (Reason: Abdominal Pain) RF: 0 Linzess 145 mcg Capsule 145 mcg PO BID RF: 0 pantoprazole [Protonix] 40 mg tablet,delayed release (DR/EC) 40 mg PO QAM RF: 0 lorazepam [Ativan] 2 mg/mL Solution 0.5 mg buccal Q6H PRN (Reason: Nausea) RF: 0 gabapentin 100 mg Capsule 200 mg PO TID RF: 0 Discharge Orders: Discharge Order (Routine); Ordered 02/14/20 Ordered By: Celso Zuniga/Other Patient Handouts: Abdominal Pain, Communicating About Pain Admission Data Admit Date/Time: 02/09/20 15:58 Attending Provider: Ramses Layne Admit Provider: Li Donald Primary Care Provider: Mariah Addison Other Providers: Viridiana Sharma ; Elpidio Velasco ; Catrina Turner Other Interventions: Discharge Summary Assessment (RN) Last Done: 02/14/20 13:30 Supervising Physician Co-Signing Physician Notes I personally examined the patient and verified all solorzano points of history and exam, discussed case, and agree with decision making with Dr Babin. ongoing abdominal pain and nausea but feels like she'll be able to manage at home. further - she, mother, and i all agree that f/u at [place] is quite necessary. vitals noted nad heent nc at mmm. breathing unlabored no accessory muscles good effort skin no rashes no pallor or icterus neuro no focal deficits. abdominal pain - suspect adhesional. ongoing pain control/time - hopefully will improve, if not then may need to consider surgery to lyse. supportive care for now. fortunately no s/s catastrophe. stable for home. discussed f/u care and when to seek more emergent care. otherwise as above Resident Activity Tracking Resident Involvement: Resident Care Provided Care Provided: Adult Hospital Medicine
[2020-02-14] MEDS: HYDROCORTISONE SOD 10 MG in SYRINGE 0 ML IV SCH (13:22)
--- NOTE | 2020-02-14 20:04 | Billing Data ---
Date of Service February 14, 2020 Coding Level of Care Code D/C Day Management <30 mins
== END 2020-02-14 14:20 | disposition home or self-care (01) | DRG 392 ==
LOC: ED 13:36 → 3N 13:36 → SUATTDRO 21:24 → 3N 22:18 → SUATTDRO 02-09 15:58

== ENCOUNTER 2020-10-19 17:35 | Observation (INO) ==
[2020-10-19] MEDS ORDERED: SODIUM CHLORIDE 0.9% 1000ML 1,000 ML IV ONE (17:56)
[2020-10-19] MEDS ORDERED: ONDANSETRON INJ 2 MG/ML 2 ML VIAL IV STA ×2 (17:56→20:15)
--- NOTE | 2020-10-19 18:16 | Emergency Department Note ---
Impression & Plan Intussusception, Abdominal pain ED Provider Note NAME: CHRIS TALBOT AGE: 30 SEX: F : 1990 ARRIVES VIA: Walk-In INFORMANT: Patient ED PROVIDER(S): Ramses Salas DO CHIEF COMPLAINT: abdominal pain HPI: Patient is a 30-year-old female with a past medical history chronic abdominal pain with a history of appendectomy, cholecystectomy, endometriosis as well as SMA syndrome with repair and now GJ tube with port on TPN who presents the ER referred in by her [facility] providers Dr. Hill following a CT abd performed this morning. CT showed persistent jejunal intussusception from 10/09/20. This was reviewed by her physician and she was referred in. She admits to constant pain not tolerating tube feeds nausea and output through her ostomy. She denies any dysuria, urgency, or frequency. She does take Dilaudid at home for pain. ROS: See above HPI for pertinent positives & negatives. A total of 10 systems reviewed and were otherwise negative. PAST MEDICAL HISTORY:See Below PAST SURGICAL HISTORY:See Below FAMILY HISTORY:See Below SOCIAL HISTORY:See Below HOME MEDICATIONS:See Below ALLERGIES:See Below VITALS:See Below PHYSICAL EXAMINATION: GENERAL: Sitting up in bed, alert, chronically ill-appearing, cachectic, disheveled EYE EXAM: normal conjunctiva OROPHARYNX: no exudate, no erythema, lips, buccal mucosa, and tongue normal and mucous membranes are moist NECK: supple, no nuchal rigidity, no adenopathy, non-tender LUNGS: Clear to auscultation. Normal chest wall mechanics HEART: no murmurs, S1 normal and S2 normal ABDOMEN: abdomen soft, mild diffuse tenderness with ostomy in right lower quadrant GJ tube present, normo-active bowel sounds, no masses, no rebound or guarding. UPPER EXTREMITIES: upper extremities are grossly normal. LOWER EXTREMITIES: No pitting edema. NEURO EXAM: Normal sensorium, cranial nerves II-XII grossly intact, normal speech, no gross weakness of arms, no gross weakness of legs. MEDICAL DECISION MAKING: Patient is a 30-year-old female with extensive abdominal history that presents the ER following a CT which showed persistent intussusception. Upon presentation I spoke with our training facilitator on 2 separate occasions as well as our general surgeon as instructed by her training facilitator. Both recommended transfer. I spoke with the training facilitator at [facility] as well as colorectal surgery and finally Dr. Bello who accepted the patient in transfer. Labs show no significant leukocytosis or anemia. BMP with slightly elevated chloride. LFTs bilirubin was unremarkable. Lipase was normal. UA was negative. Covid was negative. Patient was given IV fluids Zofran and Dilaudid. Patient will be transferred to [facility] via EMS. Observation Status: Indication: abdominal pain Patient with a non-pertinent family history, was seen first at 1745 hrs and was necessary in order to determine disposition and avoid unnecessary admission. Upon reevaluation, 4.5 hours of observation revealed that the patient should be transferred to [facility]. Disposition date and time 2230 on 10/19/20. Triage Nursing notes reviewed. Limited review of prior medical records performed Vital Signs: reviewed and remarkable for tachy Differential diagnosis: Differential diagnoses includes but is not limited to gastritis, peptic ulcer di sease, GERD, gallbladder disease, pancreatitis, small bowel obstruction, acute coronary syndrome, pericarditis, ischemic bowel, irritable bowel disease, irritable bowel syndrome, appendicitis, diverticulitis, malignancy, hernia, urinary tract infection, torsion, /ectopic (if female), perforation, trauma, infectious. ER treatment provided: See below Diagnostics interpreted by me: ECG: none Cardiac Monitoring: An order was placed for continuous cardiac monitoring. The monitor shows a rate of 101 with sinus rhythm. Laboratory studies: As stated above and show below. Imaging studies: See below Consultation(s): Discussed with Dr. Fernández from [facility] as well as Dr. Marvin from [facility] general surgery, Dr. Huynh from colorectal surgery at [facility] and Dr. Bello Procedures: none Critical Care: None Past Med/Surg History Medical History (Updated 10/19/20 @ 22:05 by Ramses Salas DO) Asthma Chronic migraine Endometriosis has had 3 surgeries for this. Last surgery 2019 Hemorrhagic cystitis Hypotension PICC (peripherally inserted central catheter) in place TPN SMAS (superior mesenteric artery syndrome) Sphincter of Oddi dysfunction DECREASED GI MOTILITY Uses feeding tube gastroparesis and decreased GI motility can not tolerate feeding and uses TPN UTI (urinary tract infection) Surgical History H/O adenoidectomy H/O laparoscopy H/O lumpectomy right breast 2011 History of appendectomy History of bowel resection Part of duodenum removed due to necrosis; done at [facility] 2019 History of hysterectomy 09/27/19 History of removal of Port-a-Cath 10/13/[address] Geiger, [facility], due to bacteremia/sepsis. History of vascular access device 2017 Hx of colonoscopy during procedure perforated small bowel 10/27/2019 at [facility], subsequent repair of duodenal area. Hx of ileostomy Hx of tonsillectomy S/P cholecystectomy 2015 S/P wrist surgery right Family History Other No significant family history Social History Smoking Status: Never smoker Second Hand Exposure: No; Hx Alcohol Use: No Hx Substance Use: No Preferred Language: Nauruan Communication Ability: Effective Visual Impairment: No Limitations Hearing Ability: Normal Counselor At Law Required: No Beliefs That Will Affect Care: None marital status: single Current Living Situation: Parent Current Living Situation Comment: Lives with family. current occupational status: unemployed Feels Safe at Home: Yes Assistive Devices: None Allergies Allergies Allergy/AdvReac Type Severity Reaction Status Date / Time amoxicillin Allergy Intermediate RASH Verified 10/19/20 18:40 cefazolin Allergy Intermediate rash Verified 10/19/20 18:40 Cephalosporins Allergy Intermediate HIVES Verified 10/19/20 18:40 clavulanic acid Allergy Intermediate HIVES Verified 10/19/20 18:40 Penicillins Allergy Intermediate HIVES Verified 10/19/20 18:40 prochlorperazine Allergy Intermediate HIVES Verified 10/19/20 18:40 promethazine Allergy Intermediate hives, Verified 10/19/20 18:40 throat swelling sulfamethoxazole Allergy Intermediate RASH Verified 10/19/20 18:40 sumatriptan Allergy Intermediate RASH Verified 10/19/20 18:40 trimethoprim Allergy Intermediate RASH Verified 10/19/20 18:40 metoclopramide AdvReac Severe anxiety/ Verified 10/19/20 18:40 jittery diphenhydramine AdvReac Intermediate Tachycardia, Verified 10/19/20 18:40 Severe Anxiety WITH IV ONLY erythromycin base AdvReac Intermediate GI SYMPTOMS Verified 10/19/20 18:40 citalopram [From Celexa] AdvReac Unknown CAN'T Verified 10/19/20 18:40 REMEMBER MULTIVITAMIN Allergy Intermediate SEE COMMENT Uncoded 10/19/20 18:40 Home Meds Home Medications Medication Instructions Recorded Confirmed dicyclomine 10 - 20 mg PO Q6H PRN 03/07/18 10/19/20 hyoscyamine sulfate [Levsin/SL] 0.125 mg SUBLINGUAL Q4H PRN 03/07/18 10/19/20 pantoprazole [Protonix] 40 mg PO QAM 09/08/19 10/19/20 famotidine 20 mg PO BID 11/28/19 10/19/20 lorazepam [Ativan] 0.5 mg BUCCAL Q6H PRN 12/05/19 10/19/20 hydrocortisone See Rx Instructions .ROUTE .COMPLEX 02/07/20 10/19/20 ondansetron 4 mg TRANSLINGUAL Q6H PRN 02/07/20 10/19/20 trimethobenzamide 300 mg PO Q6H PRN 02/07/20 10/19/20 fexofenadine [Rylee] 180 mg PO DAILY 10/09/20 10/19/20 gabapentin See Rx Instructions .ROUTE .COMPLEX 10/09/20 10/19/20 hydromorphone 2 mg PO Q6 PRN 10/09/20 10/19/20 Results & Data (ED) Vital Signs Vital Signs - 24 hr 10/19/20 17:37 10/19/20 19:38 10/19/20 19:39 Temperature 37.0 C Temperature Source Oral Pulse Rate 120 H Pulse Rate [Bilateral Apical] 105 H Pulse Rate [Left Finger] 112 H Pulse Rhythm [Left Finger] Regular Pulse Strength [Left Finger] Normal Respiratory Rate 18 18 20 Respiratory Effort / Characteristics Non-Labored Respiratory Depth Normal Respiratory Pattern Regular Blood Pressure 103/74 Blood Pressure [Left Arm] 98/58 L 98/58 L Blood Pressure Mean 83 Blood Pressure Mean [Left Arm] 71 71 Blood Pressure Position [Left Arm] Lying Pulse Oximetry 99 99 99 Oxygen Delivery Method Room Air Room Air Sepsis Recent Fever Within 48 Hours No Sepsis New/Unexplained Change in Mental Status No Sepsis Action Taken by Nursing No Action Required 10/19/20 20:02 10/19/20 20:26 10/19/20 21:28 Temperature Temperature Source Pulse Rate Pulse Rate [Bilateral Apical] 116 H 126 H 96 H Pulse Rate [Left Finger] 20 L Pulse Rhythm [Left Finger] Pulse Strength [Left Finger] Respiratory Rate 20 20 20 Respiratory Effort / Characteristics Respiratory Depth Respiratory Pattern Blood Pressure Blood Pressure [Left Arm] 92/59 L 100/63 100/71 Blood Pressure Mean Blood Pressure Mean [Left Arm] 70 75 80 Blood Pressure Position [Left Arm] Pulse Oximetry 98 98 99 Oxygen Delivery Method Room Air Room Air Room Air Sepsis Recent Fever Within 48 Hours Sepsis New/Unexplained Change in Mental Status Sepsis Action Taken by Nursing Laboratory Data Result diagrams: 10/19/20 18:26 10/19/20 18:26 Lab Results 10/19/20 10/19/20 10/19/20 Range/Units 18:00 18:00 18:26 WBC 9.68 (4.8-10.8) K/uL RBC 3.77 L (4.2-5.4) M/uL Hgb 12.0 (12.0-16.0) g/dL Hct 35.6 L (37-47) % MCV 94.4 (80-100) fL MCH 31.8 (25-34) pg MCHC 33.7 (32-36) g/dL RDW Std Deviation 41.7 (36.4-46.3) fL RDW Coeff of Tim 12.1 (11.5-14.5) % Plt Count 331 (130-400) K/uL MPV 10.7 H (7.4-10.4) fL Immature Gran % (Auto) 0.1 % Neut % (Auto) 92.2 % Lymph % (Auto) 5.8 % [place] % (Auto) 1.7 % Eos % (Auto) 0.0 % Baso % (Auto) 0.2 % Neut # (Auto) 8.93 H (1.4-6.5) K/uL Lymph # (Auto) 0.56 L (1.2-3.4) K/uL [place] # (Auto) 0.16 (0.11-0.59) K/uL Eos # (Auto) 0.00 (0-0.5) K/uL Baso # (Auto) 0.02 (0-0.2) K/uL Immature Gran # (Auto) 0.01 (0.00-0.02) K/uL Sodium (136-145) mmol/L Potassium (3.5-5.1) mmol/L Chloride (98-107) mmol/L Carbon Dioxide (21-32) mmol/L Anion Gap (3-11) BUN (7-18) mg/dl Creatinine (0.6-1.2) mg/dl Est Cr Clr Drug Dosing ml/min Est GFR ( Amer) ml/min Est GFR (Non-Af Amer) ml/min BUN/Creatinine Ratio (10-20) Glucose (70-99) mg/dl Calcium (8.5-10.1) mg/dl Total Bilirubin (0.2-1) mg/dl AST (15-37) U/L ALT (12-78) U/L Alkaline Phosphatase (45-117) U/L Total Protein (6.4-8.2) gm/dl Albumin (3.4-5.0) gm/dl Globulin (2.5-4.0) gm/dl Albumin/Globulin Ratio (0.9-2) Lipase (73-393) U/L Urine Color Yellow Urine Appearance Clear (Clear) Urine pH 5.0 (4.5-7.5) Ur Specific [place] 1.035 H (1.000-1.030) Urine Protein Negative (Negative) Urine Glucose (UA) Negative (Negative) Urine Ketones Negative (Negative) Urine Blood Negative (Negative) Urine Nitrite Negative (Negative) Urine Bilirubin Negative (Negative) Urine Urobilinogen Negative (Negative) Ur Leukocyte Esterase Negative (Negative) Urine Test Negative (Negative) COVID-19 Eval Order SARS-CoV-2 (PCR) (Negative) 10/19/20 10/19/20 10/19/20 Range/Units 18:26 18:59 18:59 WBC (4.8-10.8) K/uL RBC (4.2-5.4) M/uL Hgb (12.0-16.0) g/dL Hct (37-47) % MCV (80-100) fL MCH (25-34) pg MCHC (32-36) g/dL RDW Std Deviation (36.4-46.3) fL RDW Coeff of Tim (11.5-14.5) % Plt Count (130-400) K/uL MPV (7.4-10.4) fL Immature Gran % (Auto) % Neut % (Auto) % Lymph % (Auto) % [place] % (Auto) % Eos % (Auto) % Baso % (Auto) % Neut # (Auto) (1.4-6.5) K/uL Lymph # (Auto) (1.2-3.4) K/uL [place] # (Auto) (0.11-0.59) K/uL Eos # (Auto) (0-0.5) K/uL Baso # (Auto) (0-0.2) K/uL Immature Gran # (Auto) (0.00-0.02) K/uL Sodium 139 (136-145) mmol/L Potassium 3.9 (3.5-5.1) mmol/L Chloride 108 H (98-107) mmol/L Carbon Dioxide 24 (21-32) mmol/L Anion Gap 7.0 (3-11) BUN 10 (7-18) mg/dl Creatinine 0.77 (0.6-1.2) mg/dl Est Cr Clr Drug Dosing 73.7 ml/min Est GFR ( Amer) 121.8 ml/min Est GFR (Non-Af Amer) 105.1 ml/min BUN/Creatinine Ratio 12.8 (10-20) Glucose 108 H (70-99) mg/dl Calcium 9.1 (8.5-10.1) mg/dl Total Bilirubin 0.3 (0.2-1) mg/dl AST 11 L (15-37) U/L ALT 12 (12-78) U/L Alkaline Phosphatase 50 (45-117) U/L Total Protein 7.1 (6.4-8.2) gm/dl Albumin 4.1 (3.4-5.0) gm/dl Globulin 3.0 (2.5-4.0) gm/dl Albumin/Globulin Ratio 1.4 (0.9-2) Lipase 114 (73-393) U/L Urine Color Urine Appearance (Clear) Urine pH (4.5-7.5) Ur Specific [place] (1.000-1.030) Urine Protein (Negative) Urine Glucose (UA) (Negative) Urine Ketones (Negative) Urine Blood (Negative) Urine Nitrite (Negative) Urine Bilirubin (Negative) Urine Urobilinogen (Negative) Ur Leukocyte Esterase (Negative) Urine Test (Negative) COVID-19 Eval Order Covid19 at [facility] SARS-CoV-2 (PCR) NEGATIVE (Negative) Administered Medications Hydromorphone HCl (Hydromorphone Inj 0.5 Mg/0.5 Ml Syr) 0.25 mg IV Q2H PRN PRN Reason: pain Stop: 11/02/20 20:14 Last Admin: 10/19/20 22:14 Dose: 0.25 mg Documented by: [id number] Admin: 10/19/20 20:22 Dose: 0.25 mg Documented by: [id number] Sodium Chloride (Nss) 500 mls @ 60 mls/hr IV .Q8H20M EMERALD Stop: 11/18/20 22:14 Last Admin: 10/19/20 22:09 Dose: 60 mls/hr Documented by: [id number] Discontinued Medications Sodium Chloride (Nss 1000ml) 1,000 mls @ 999 mls/hr IV .Q1H1M ONE Stop: 10/19/20 18:56 Last Infusion: 10/19/20 19:36 Dose: 0 mls/hr Documented by: [id number] Admin: 10/19/20 18:33 Dose: 999 mls/hr Documented by: [id number] Ondansetron HCl (Ondansetron Inj 2 Mg/Ml 2 Ml Vial) 4 mg IV NOW STA Stop: 10/19/20 17:57 Last Admin: 10/19/20 18:33 Dose: 4 mg Documented by: [id number] Ondansetron HCl (Ondansetron Inj 2 Mg/Ml 2 Ml Vial) 4 mg IV NOW STA Stop: 10/19/20 20:16 Last Admin: 10/19/20 20:25 Dose: 4 mg Documented by: [id number] Discharge Plan Visit Data Chief Complaint: Referred by Doctor Stated Complaint: INTESSEPTION ED Provider: Kirk Caldera Discharge Problem: Intussusception, Abdominal pain Forms Stand Alone Forms: [facility] [employer] Prescriptions Prescriptions: No Action famotidine 40 mg tablet 20 mg PO BID RF: 0 ondansetron 4 mg tablet,disintegrating 4 mg translingual Q6H PRN (Reason: Nausea) RF: 0 hydrocortisone 10 mg tablet See Rx Instructions .ROUTE .COMPLEX RF: 0 trimethobenzamide 300 mg Capsule 300 mg PO Q6H PRN (Reason: Nausea And Vomiting) RF: 0 hyoscyamine sulfate [Levsin/SL] 0.125 mg Tablet, Sublingual 0.125 mg SUBLINGUAL Q4H PRN (Reason: Abdominal Cramping) RF: 0 dicyclomine 10 mg Capsule 10 - 20 mg PO Q6H PRN (Reason: Abdominal Pain) RF: 0 pantoprazole [Protonix] 40 mg tablet,delayed release (DR/EC) 40 mg PO QAM RF: 0 lorazepam [Ativan] 2 mg/mL Solution 0.5 mg buccal Q6H PRN (Reason: Nausea) RF: 0 gabapentin 250 mg/5 mL solution See Rx Instructions .ROUTE .COMPLEX RF: 0 fexofenadine [Rylee] 180 mg Tablet 180 mg PO DAILY RF: 0 hydromorphone 1 mg/mL liquid 2 mg PO Q6 PRN (Reason: Pain, Severe) RF: 0 Discharge Problem: Abdominal pain Qualifiers: Abdominal location: unspecified location Qualified Code(s): R10.9 - Unspecified abdominal pain
[2020-10-19 18:18] LABS: Appearance Urine Clear (Clear); Bilirubin Urine Negative (Negative); Blood Urine Negative (Negative); Color Urine Yellow; Glucose Urine UA Negative (Negative); Ketones Urine Negative (Negative); Leukocyte Esterase Urine Negative (Negative); Nitrite Urine Negative (Negative); Protein Urine Negative (Negative); Specific Gravity Urine 1.035 (1.000-1.030); Urobilinogen Urine Negative (Negative)
[2020-10-19 18:38] LABS: Basophils # (auto) 0.02 K/uL (0-0.2); Basophils % (auto) 0.2 %; Hematocrit (blood only) 35.6 % (37-47); Immature Granulocytes # (auto) 0.01 K/uL (0.00-0.02); Immature Granulocytes % (auto) 0.1 %; Lymphocytes # (auto) 0.56 K/uL (1.2-3.4); Lymphocytes % (auto) 5.8 %; Mean Corpuscular Hemoglobin 31.8 pg (25-34); Mean Corpuscular Hgb Conc 33.7 g/dL (32-36); Mean Corpuscular Volume 94.4 fL (80-100); Mean Platelet Volume 10.7 fL (7.4-10.4); Monocytes # (auto) 0.16 K/uL (0.11-0.59); Monocytes % (auto) 1.7 %; Neutrophils # (auto) 8.93 K/uL (1.4-6.5); Neutrophils % (auto) 92.2 %; Platelet Count 331 K/uL (130-400); RDW Coefficient of Variation 12.1 % (11.5-14.5); RDW Standard Deviation 41.7 fL (36.4-46.3); Red Blood Count 3.77 M/uL (4.2-5.4); White Blood Count 9.68 K/uL (4.8-10.8)
[2020-10-19 18:56] LABS: Albumin Level 4.1 gm/dl (3.4-5.0); BUN Creatinine Ratio 12.8 (10-20); Calcium 9.1 mg/dl (8.5-10.1); Creatinine Clr Calc Pharmacy 73.7 ml/min; Est GFR (African American) 121.8 ml/min; Est GFR (Non-African American) 105.1 ml/min; Potassium 3.9 mmol/L (3.5-5.1)
[2020-10-19 18:59] LABS: Albumin Globulin Ratio 1.4 (0.9-2); Bilirubin,Total 0.3 mg/dl (0.2-1); Total Protein 7.1 gm/dl (6.4-8.2)
[2020-10-19] MEDS ORDERED: MoRPHine SULFATE 2 MG/ML CARP IV PRN (20:09)
[2020-10-19] MEDS: HYDROmorphone INJ 0.5 MG/0.5 ML SYR IV PRN ×2 (20:22→22:14)
[2020-10-19 21:13] LABS: Pregnancy Test, Urine Negative (Negative)
[2020-10-19] MEDS ORDERED: SODIUM CHLORIDE 0.9% 500 ML IV SCH (22:15)
--- NOTE | 2020-10-19 23:46 | Emergency Department Note ---
ED Visit Note This case was signed out to me at change of shift awaiting transfer to [facility]. The patient will go there by private vehicle in the morning. We will contact the accepting service in the morning to confirm bed availability. Nursing staff and case management contacted the accepting service in [place] and they did not want the patient to come by private vehicle so we will wait for ambulance transport. The case will be discussed with the admitting service-Dr. Sharma . : Abdominal pain Qualifiers: Abdominal location: unspecified location Qualified Code(s): R10.9 - Unspecified abdominal pain
--- NOTE | 2020-10-19 23:48 | Emergency Department Note ---
ED Visit Note I assumed care at the change of shift. The patient was awaiting transfer to the [facility]. She had been diagnosed with an intussusception. The paperwork for transfer had been completed. We have been unable to secure an ambulance for transport. I talked to the family. The patient's mother would be willing to drive her daughter to the [facility] tomorrow morning if we are still unable to secure ambulance transport. The patient would be willing to be driven by her mother. The patient's care is being assumed by Dr. Love at the change of shift. In the a.m., if we still do not have ambulance transport, if the [facility] is willing to take the patient by private vehicle, the patient's mother will drive her daughter to [place] for hospitalization. . : Abdominal pain Qualifiers: Abdominal location: unspecified location Qualified Code(s): R10.9 - Unspecified abdominal pain
[2020-10-20] MEDS ORDERED: ONDANSETRON INJ 2 MG/ML 2 ML VIAL IV STA (00:43)
[2020-10-20] MEDS: HYDROmorphone INJ 0.5 MG/0.5 ML SYR IV PRN ×5 (00:52→11:26)
--- NOTE | 2020-10-20 02:36 | Emergency Department Note ---
ED Visit Note The plan for the patient to be transferred by private vehicle to [facility] has fallen through. The physician at the [facility] will not accept the patient to their facility if the patient is driven by private vehicle. The transfer must be by ambulance. As there is no transport currently available, the patient will be hospitalized at our facility until an ambulance becomes available. The patient's case did not need to be assumed by Dr. Love. . : Abdominal pain Qualifiers: Abdominal location: unspecified location Qualified Code(s): R10.9 - Unspecified abdominal pain
--- NOTE | 2020-10-20 03:19 | History & Physical Report ---
Date of Service October 20, 2020 Assessment & Plan (1) Jejunal intussusception: Pilar Garcia is a 30y/o F with PMHx significant for recurrent abdominal pain secondary to intestinal motility issues; who presented to the ER following discussions with her [facility] doctor in regards to a recent CT scan demonstrating concerns for intussusception and her continued inability to tolerate her tube feeds or TPN without nausea or vomiting over this time. Jejunal intussusception: -CT abdomen/pelvis from 10/19 demonstrated signs of an intussusception of small bowel is again seen in the proximal jejunum around the jejunostomy tube; similar to findings on scan from 10/09 -discussed continued holding of tube feeds and TPN at this point in time -accepted to [facility] by Dr. Bello; however pending transportation at this time, and cannot travel via private vehicle -IV Zofran q6h PRN for nausea or vomiting -Ativan 0.5mg IV q6h PRN for nausea or vomiting -Dilaudid 0.25mg IV Q2h PRN for abdominal pain Diet: NPO with sips and meds CODE STATUS: Full (2) Generalized abdominal pain: History of Present Illness Primary Care Provider: Mariah Addison DO Pilar Garcia is a 30y/o F with PMHx significant for recurrent abdominal pain secondary to intestinal motility issues; who presented to the ER following discussions with her [facility] doctor in regards to a recent CT scan demonstrating concerns for intussusception and her continued inability to tolerate her tube feeds or TPN without nausea or vomiting over this time. Has been tolerating her TPN and tube feeds as much as she normally ever does over the last couple days, but did not use on 10/19 given the symptoms she has been having and while awaiting transportation to [facility] from the ED. Allergies Allergy/AdvReac Type Severity Reaction Status Date / Time amoxicillin Allergy Intermediate RASH Verified 10/19/20 18:40 cefazolin Allergy Intermediate rash Verified 10/19/20 18:40 Cephalosporins Allergy Intermediate HIVES Verified 10/19/20 18:40 clavulanic acid Allergy Intermediate HIVES Verified 10/19/20 18:40 Penicillins Allergy Intermediate HIVES Verified 10/19/20 18:40 prochlorperazine Allergy Intermediate HIVES Verified 10/19/20 18:40 promethazine Allergy Intermediate hives, Verified 10/19/20 18:40 throat swelling sulfamethoxazole Allergy Intermediate RASH Verified 10/19/20 18:40 sumatriptan Allergy Intermediate RASH Verified 10/19/20 18:40 trimethoprim Allergy Intermediate RASH Verified 10/19/20 18:40 metoclopramide AdvReac Severe anxiety/ Verified 10/19/20 18:40 jittery diphenhydramine AdvReac Intermediate Tachycardia, Verified 10/19/20 18:40 Severe Anxiety WITH IV ONLY erythromycin base AdvReac Intermediate GI SYMPTOMS Verified 10/19/20 18:40 citalopram [From Celexa] AdvReac Unknown CAN'T Verified 10/19/20 18:40 REMEMBER MULTIVITAMIN Allergy Intermediate SEE COMMENT Uncoded 10/19/20 18:40 Home Medications Medication Instructions Recorded Confirmed Type dicyclomine 10 - 20 mg PO Q6H PRN 03/07/18 10/19/20 History hyoscyamine sulfate [Levsin/SL] 0.125 mg SUBLINGUAL Q4H PRN 03/07/18 10/19/20 History pantoprazole [Protonix] 40 mg PO QAM 09/08/19 10/19/20 History famotidine 20 mg PO BID 11/28/19 10/19/20 History lorazepam [Ativan] 0.5 mg BUCCAL Q6H PRN 12/05/19 10/19/20 History hydrocortisone See Rx Instructions .ROUTE .COMPLEX 02/07/20 10/19/20 History ondansetron 4 mg TRANSLINGUAL Q6H PRN 02/07/20 10/19/20 History trimethobenzamide 300 mg PO Q6H PRN 02/07/20 10/19/20 History fexofenadine [Rylee] 180 mg PO DAILY 10/09/20 10/19/20 History gabapentin See Rx Instructions .ROUTE .COMPLEX 10/09/20 10/19/20 History hydromorphone 2 mg PO Q6 PRN 10/09/20 10/19/20 History Past Med/Surg History Medical History (Updated 10/19/20 @ 22:05 by Ramses Salas DO) Asthma Chronic migraine Endometriosis has had 3 surgeries for this. Last surgery 2019 Hemorrhagic cystitis Hypotension PICC (peripherally inserted central catheter) in place TPN SMAS (superior mesenteric artery syndrome) Sphincter of Oddi dysfunction DECREASED GI MOTILITY Uses feeding tube gastroparesis and decreased GI motility can not tolerate feeding and uses TPN UTI (urinary tract infection) Surgical History H/O adenoidectomy H/O laparoscopy H/O lumpectomy right breast 2011 History of appendectomy History of bowel resection Part of duodenum removed due to necrosis; done at [facility] 2019 History of hysterectomy 09/27/19 History of removal of Port-a-Cath 10/13/[address] Geiger, [facility], due to bacteremia/sepsis. History of vascular access device 2017 Hx of colonoscopy during procedure perforated small bowel 10/27/[address] [facility], subsequent repair of duodenal area. Hx of ileostomy Hx of tonsillectomy S/P cholecystectomy 2015 S/P wrist surgery right Family History Other No significant family history Social History Smoking Status: Never smoker Second Hand Exposure: No; Hx Alcohol Use: No Hx Substance Use: No Preferred Language: Belarusian Communication Ability: Effective Visual Impairment: No Limitations Hearing Ability: Normal Personnel Generalist Manager Required: No Beliefs That Will Affect Care: None marital status: single Current Living Situation: Parent Current Living Situation Comment: Lives with family. current occupational status: unemployed Feels Safe at Home: Yes Assistive Devices: None Review of Systems Review of Systems: All systems reviewed & are unremarkable except as noted in HPI & below Physical Exam Constitutional: WD/WN, vitals as above + thin Eyes: PERRL, conjunctivae normal, anicteric sclerae ENMT: external ear and nose normal, oropharynx normal Respiratory: normal respiratory effort, lungs clear to auscultation Cardiovascular: Rate/Rhythm: regular rate and regular rhythm Heart Sounds: no gallop, no murmur and no cardiac rub Vessels: normal peripheral pulses Gastrointestinal (Abdomen): Percussion/Palpation: + abdomen tender (RLQ) and + guarding; abdomen not rigid, + abdomen not soft and no hepatosplenomegaly Skin: no rashes, warm and dry Results & Data Results & Data ([facility]) Vital Signs (Past 12 Hours) Vital Signs Temp Pulse Pulse Pulse Resp BP BP 10/20/20 02:54 70 20 91/69 L 10/20/20 01:07 81 20 104/68 10/19/20 23:38 98 H 20 99/68 L 10/19/20 22:54 96 H 20 105/74 10/19/20 21:28 96 H 20 100/71 10/19/20 20:26 126 H 20 100/63 10/19/20 20:02 116 H 20 L 20 92/59 L 10/19/20 19:39 105 H 20 98/58 L 10/19/20 19:38 112 H 18 98/58 L 10/19/20 17:37 37.0 C 120 H 18 103/74 Pulse Ox 10/20/20 02:54 98 10/20/20 01:07 97 10/19/20 23:38 98 10/19/20 22:54 98 10/19/20 21:28 99 10/19/20 20:26 98 10/19/20 20:02 98 10/19/20 19:39 99 10/19/20 19:38 99 10/19/20 17:37 99 Laboratory Results 10/19/20 10/19/20 10/19/20 Range/Units 18:59 18:59 18:26 WBC (4.8-10.8) K/uL RBC (4.2-5.4) M/uL Hgb (12.0-16.0) g/dL Hct (37-47) % MCV (80-100) fL MCH (25-34) pg MCHC (32-36) g/dL RDW Std Deviation (36.4-46.3) fL RDW Coeff of Tim (11.5-14.5) % Plt Count (130-400) K/uL MPV (7.4-10.4) fL Immature Gran % (Auto) % Neut % (Auto) % Lymph % (Auto) % [place] % (Auto) % Eos % (Auto) % Baso % (Auto) % Neut # (Auto) (1.4-6.5) K/uL Lymph # (Auto) (1.2-3.4) K/uL [place] # (Auto) (0.11-0.59) K/uL Eos # (Auto) (0-0.5) K/uL Baso # (Auto) (0-0.2) K/uL Immature Gran # (Auto) (0.00-0.02) K/uL Sodium 139 (136-145) mmol/L Potassium 3.9 (3.5-5.1) mmol/L Chloride 108 H (98-107) mmol/L Carbon Dioxide 24 (21-32) mmol/L Anion Gap 7.0 (3-11) BUN 10 (7-18) mg/dl Creatinine 0.77 (0.6-1.2) mg/dl Est Cr Clr Drug Dosing 73.7 ml/min Est GFR ( Amer) 121.8 ml/min Est GFR (Non-Af Amer) 105.1 ml/min BUN/Creatinine Ratio 12.8 (10-20) Glucose 108 H (70-99) mg/dl Calcium 9.1 (8.5-10.1) mg/dl Total Bilirubin 0.3 (0.2-1) mg/dl AST 11 L (15-37) U/L ALT 12 (12-78) U/L Alkaline Phosphatase 50 (45-117) U/L Total Protein 7.1 (6.4-8.2) gm/dl Albumin 4.1 (3.4-5.0) gm/dl Globulin 3.0 (2.5-4.0) gm/dl Albumin/Globulin Ratio 1.4 (0.9-2) Lipase 114 (73-393) U/L Urine Color Urine Appearance (Clear) Urine pH (4.5-7.5) Ur Specific [place] (1.000-1.030) Urine Protein (Negative) Urine Glucose (UA) (Negative) Urine Ketones (Negative) Urine Blood (Negative) Urine Nitrite (Negative) Urine Bilirubin (Negative) Urine Urobilinogen (Negative) Ur Leukocyte Esterase (Negative) Urine Test (Negative) COVID-19 Eval Order Covid19 at [facility] SARS-CoV-2 (PCR) NEGATIVE (Negative) 10/19/20 10/19/20 10/19/20 Range/Units 18:26 18:00 18:00 WBC 9.68 (4.8-10.8) K/uL RBC 3.77 L (4.2-5.4) M/uL Hgb 12.0 (12.0-16.0) g/dL Hct 35.6 L (37-47) % MCV 94.4 (80-100) fL MCH 31.8 (25-34) pg MCHC 33.7 (32-36) g/dL RDW Std Deviation 41.7 (36.4-46.3) fL RDW Coeff of Tim 12.1 (11.5-14.5) % Plt Count 331 (130-400) K/uL MPV 10.7 H (7.4-10.4) fL Immature Gran % (Auto) 0.1 % Neut % (Auto) 92.2 % Lymph % (Auto) 5.8 % [place] % (Auto) 1.7 % Eos % (Auto) 0.0 % Baso % (Auto) 0.2 % Neut # (Auto) 8.93 H (1.4-6.5) K/uL Lymph # (Auto) 0.56 L (1.2-3.4) K/uL [place] # (Auto) 0.16 (0.11-0.59) K/uL Eos # (Auto) 0.00 (0-0.5) K/uL Baso # (Auto) 0.02 (0-0.2) K/uL Immature Gran # (Auto) 0.01 (0.00-0.02) K/uL Sodium (136-145) mmol/L Potassium (3.5-5.1) mmol/L Chloride (98-107) mmol/L Carbon Dioxide (21-32) mmol/L Anion Gap (3-11) BUN (7-18) mg/dl Creatinine (0.6-1.2) mg/dl Est Cr Clr Drug Dosing ml/min Est GFR ( Amer) ml/min Est GFR (Non-Af Amer) ml/min BUN/Creatinine Ratio (10-20) Glucose (70-99) mg/dl Calcium (8.5-10.1) mg/dl Total Bilirubin (0.2-1) mg/dl AST (15-37) U/L ALT (12-78) U/L Alkaline Phosphatase (45-117) U/L Total Protein (6.4-8.2) gm/dl Albumin (3.4-5.0) gm/dl Globulin (2.5-4.0) gm/dl Albumin/Globulin Ratio (0.9-2) Lipase (73-393) U/L Urine Color Yellow Urine Appearance Clear (Clear) Urine pH 5.0 (4.5-7.5) Ur Specific [place] 1.035 H (1.000-1.030) Urine Protein Negative (Negative) Urine Glucose (UA) Negative (Negative) Urine Ketones Negative (Negative) Urine Blood Negative (Negative) Urine Nitrite Negative (Negative) Urine Bilirubin Negative (Negative) Urine Urobilinogen Negative (Negative) Ur Leukocyte Esterase Negative (Negative) Urine Test Negative (Negative) COVID-19 Eval Order SARS-CoV-2 (PCR) (Negative) Diagnostic Findings CT SCAN OF THE ABDOMEN AND PELVIS WITH IV CONTRAST CLINICAL HISTORY: Generalized abdominal pain. COMPARISON STUDY: Prior abdominal CT scans, most recently dated 10/09/2020. TECHNIQUE: Following the IV administration of 94 cc of Optiray 320, CT scan of the abdomen and pelvis is performed from the lung bases to the proximal femora. Images are reviewed in the axial, sagittal, and coronal planes. IV contrast was administered without complication. Oral contrast was utilized. A dose lowering technique was utilized adhering to the principles of ALARA. CT DOSE: 244.75 mGy.cm FINDINGS: Lung bases: The heart is normal in size and without pericardial effusion. The lung bases are clear. Liver: The contrast-enhanced liver is normal in size, contour, and attenuation. There is no intrahepatic biliary ductal dilatation. The hepatic veins and portal veins are patent. Gallbladder: Surgically absent noting clips in the gallbladder fossa. Spleen: Normal in size and attenuation. Pancreas: Unremarkable. Adrenal glands: Unremarkable. Kidneys: The contrast enhanced kidneys are normal in size and without hydrone phrosis. The kidneys enhance symmetrically. Abdominal vasculature: The abdominal aorta is normal in course and caliber. Stomach and bowel: There is postoperative change of double barrel ostomy in the right lower quadrant. A small parastomal hernia contains small bowel. A gastrojejunostomy tube is in place. Small bowel intussusception is again seen in the proximal jejunum around the jejunostomy tube. There is no bowel obstruction, as enteric contrast passes distal to this point and reaches the distal small bowel near the ostomy. No surrounding inflammation is identified. There is no pneumatosis intestinalis or portal venous gas. The appendix is not identified and reported surgically absent. A metallic foreign body within a loop of jejunum seen on image #153 is unchanged from previous and likely on a postoperative basis. Peritoneum: There is no intraperitoneal free air or abdominal ascites. Lymphadenopathy: None. Pelvic viscera: The bladder is decompressed and not well evaluated.. The uterus is surgically absent. No adnexal lesion is seen. There is a small volume of free fluid in the cul-de-sac. Skeletal structures: No lytic or blastic lesions are seen. IMPRESSION: 1. A gastrojejunostomy tube is in place and there is postoperative change from double barrel ostomy in the right lower quadrant. 2. An intussusception of small bowel is again seen in the proximal jejunum robin und the jejunostomy tube. This is similar to the 10/09/2020 examination. 3. There is no bowel obstruction. 4. A small volume of nonspecific free fluid is seen in the cul-de-sac.. Electronically signed by: Kirk Burgos M.D. Medications Administered Current Inpatient Medications Hydromorphone HCl (Hydromorphone Inj 0.5 Mg/0.5 Ml Syr) 0.25 mg IV Q2H PRN PRN Reason: pain Stop: 11/02/20 20:14 Last Admin: 10/20/20 03:44 Dose: 0.25 mg Documented by: Sodium Chloride (Nss) 500 mls @ 60 mls/hr IV .[id number] EMERALD Stop: 11/18/20 22:14 Last Admin: 10/19/20 22:09 Dose: 60 mls/hr Documented by: Supervising Physician Co-Signing Physician Notes Patient seen and examined, chart reviewed, case discussed with Dr. Babin and agree with his assessment and plan as documented above. Briefly, patient is a 22-year-old female with complex medical history, multiple abdominal surgeries in the past, J-tube in place presenting with intestinal intussusception. Patient reports episodic twisting pain specifically in her lower abdomen. She has been unable to tolerate her tube feeds for the last several days. CT shows signs of intussusception of the small bowel in the proximal jejunum around the jejunostomy tube. Findings similar to scan performed on 10/09/2020. Patient presently follows with gastroenterology at [facility]. She has been accepted at [facility] and has a bed assigned however, transport is unavailable at this time. Plans were made for patient to arrive via private vehicle to [facility] however, this was unacceptable to the accepting team. Therefore, patient will be admitted to our facility for symptomatic management until transport becomes available. Her abdomen is soft and mildly tender, nonsurgical in nature. She is afebrile and hemodynamically stable. Nontoxic. J-tube site clean with no erythema, drainage or bleeding Remainder of exam unremarkable Labs and images reviewed Assessment/plan Admit to medical floor Symptomatic management with pain control and antiemetics as needed IV fluid and electrolyte repletion Await transport to [facility] Remainder of plan as above Resident Activity Tracking Resident Involvement: Resident Care Provided Care Provided: Adult Hospital Medicine
--- NOTE | 2020-10-20 05:48 | Billing Data ---
Date of Service October 20, 2020 Coding Level of Care Code 08469 OBS Care - Level 2
[2020-10-20] MEDS ORDERED: LORazepam 0.5 MG/1 ML VIAL IV PRN (05:51)
[2020-10-20] MEDS ORDERED: SODIUM CHLORIDE 0.9% 1000ML 1,000 ML IV SCH (06:15)
[2020-10-20] MEDS: ONDANSETRON INJ 2 MG/ML 2 ML VIAL IV PRN ×2 (06:20→11:26)
[2020-10-20] MEDS ORDERED: GABAPENTIN 250 MG/5 ML 470 ML BTL PEG SCH (09:00)
[2020-10-20] MEDS ORDERED: HYDROCORTISONE 10 MG TAB PO SCH ×2 (09:00→14:00)
--- NOTE | 2020-10-20 11:28 | Discharge Summary ---
Date of Service October 20, 2020 Admission HPI Per Admitting Provider Pilar Garcia is a 30y/o F with PMHx significant for recurrent abdominal pain secondary to intestinal motility issues; who presented to the ER following discussions with her [facility] doctor in regards to a recent CT scan demonstrating concerns for intussusception and her continued inability to tolerate her tube feeds or TPN without nausea or vomiting over this time. Has been tolerating her TPN and tube feeds as much as she normally ever does over the last couple days, but did not use on 10/19 given the symptoms she has been having and while awaiting transportation to [facility] from the ED. Admission Exam Per Admitting Provider Constitutional: WD/WN, vitals as above + thin Eyes: PERRL, conjunctivae normal, anicteric sclerae ENMT: external ear and nose normal, oropharynx normal Respiratory: normal respiratory effort, lungs clear to auscultation Cardiovascular: Rate/Rhythm: regular rate and regular rhythm Heart Sounds: no gallop, no murmur and no cardiac rub Vessels: normal peripheral pulses Gastrointestinal (Abdomen): Percussion/Palpation: + abdomen tender (RLQ) and + guarding; abdomen not rigid, + abdomen not soft and no hepatosplenomegaly Skin: no rashes, warm and dry Principal Diagnosis Intestinal intussusception Discharge Exam General: Thin appearing female no acute distress HEENT: Normocephalic atraumatic Neck: Normal to visual inspection, trachea midline Cardiac: Regular rate and rhythm I did not appreciate significant abnormalities, no murmurs, no rubs, no gallops, negative pedal edema, negative calf tenderness, Respiratory: Clear to auscultation bilaterally with symmetrical chest expansion did not appreciate wheezes, rales, rhonchi, no increased work of breathing GI: Bowel sounds present, tender to palpation, no rigidity, no guarding MSK: Moves all extremities Neuro: AAOx4 Psych:Calm and cooperative with interview Discharge Data Allergies Allergy/AdvReac Type Severity Reaction Status Date / Time amoxicillin Allergy Intermediate RASH Verified 10/19/20 18:40 cefazolin Allergy Intermediate rash Verified 10/19/20 18:40 Cephalosporins Allergy Intermediate HIVES Verified 10/19/20 18:40 clavulanic acid Allergy Intermediate HIVES Verified 10/19/20 18:40 Penicillins Allergy Intermediate HIVES Verified 10/19/20 18:40 prochlorperazine Allergy Intermediate HIVES Verified 10/19/20 18:40 promethazine Allergy Intermediate hives, Verified 10/19/20 18:40 throat swelling sulfamethoxazole Allergy Intermediate RASH Verified 10/19/20 18:40 sumatriptan Allergy Intermediate RASH Verified 10/19/20 18:40 trimethoprim Allergy Intermediate RASH Verified 10/19/20 18:40 metoclopramide AdvReac Severe anxiety/ Verified 10/19/20 18:40 jittery diphenhydramine AdvReac Intermediate Tachycardia, Verified 10/19/20 18:40 Severe Anxiety WITH IV ONLY erythromycin base AdvReac Intermediate GI SYMPTOMS Verified 10/19/20 18:40 citalopram [From Celexa] AdvReac Unknown CAN'T Verified 10/19/20 18:40 REMEMBER MULTIVITAMIN Allergy Intermediate SEE COMMENT Uncoded 10/19/20 18:40 Consultations 10/20/20 02:16 ED Decision to Admit Stat Hospital Course (1) Jejunal intussusception: Pilar Garcia is a 30y/o F with PMHx significant for recurrent abdominal pain secondary to intestinal motility issues; who presented to the ER following discussions with her [facility] doctor in regards to a recent CT scan demonstrating concerns for intussusception and her continued inability to tolerate her tube feeds or TPN without nausea or vomiting over this time. Jejunal intussusception: -CT abdomen/pelvis from 10/19 demonstrated signs of an intussusception of small bowel is again seen in the proximal jejunum around the jejunostomy tube; similar to findings on scan from 10/09 -discussed continued holding of tube feeds and TPN at this point in time -accepted to [facility] by Dr. Bello on admission pending tranportation - transferred this afternoon. Diet: NPO with sips and meds CODE STATUS: Full (2) Generalized abdominal pain: Total Time Total Time Spent Total Time Spent (In Minutes): 42 Discharge Plan Discharge Items Patient Disposition: Transfer Acute Care Hospital Reason For Visit: INTUSSUSCEPTION Discharge Diagnosis: Intussusception Activity: Resume your previous activity Non-emergency contact: Primary Care Provider Call non-emergency contact if: you have any medication questions Follow-up/Referrals: Mariah Addison DO [Primary Care Provider] - Addtl Attending Provider Instructions: Pilar Garcia is a 30y/o F with PMHx significant for recurrent abdominal pain secondary to intestinal motility issues; who presented to the ER following discussions with her [facility] doctor in regards to a recent CT scan demonstrating concerns for intussusception and her continued inability to tolerate her tube feeds or TPN without nausea or vomiting over this time. Jejunal intussusception: -CT abdomen/pelvis from 10/19 demonstrated signs of an intussusception of small bowel is again seen in the proximal jejunum around the jejunostomy tube; similar to findings on scan from 10/09 -discussed continued holding of tube feeds and TPN at this point in time -accepted to [facility] by Dr. Bello; however pending transportation at this time, and cannot travel via private vehicle -IV Zofran q6h PRN for nausea or vomiting -Ativan 0.5mg IV q6h PRN for nausea or vomiting -Dilaudid 0.25mg IV Q2h PRN for abdominal pain Diet: NPO with sips and meds CODE STATUS: Full Pending Studies at Discharge: No Stand-Alone Forms: [facility] Skilled Items Patient informed of condition?: Yes DNR: No Discharge Level of Care: Other Communicable Disease: No Discharge Prognosis: Stable Lines: None Urinary Catheter: No Medications and DC Order Prescriptions: Continued famotidine 40 mg tablet 20 mg PO BID RF: 0 ondansetron 4 mg tablet,disintegrating 4 mg translingual Q6H PRN (Reason: Nausea) RF: 0 hydrocortisone 10 mg tablet See Rx Instructions .ROUTE .COMPLEX RF: 0 trimethobenzamide 300 mg Capsule 300 mg PO Q6H PRN (Reason: Nausea And Vomiting) RF: 0 hyoscyamine sulfate [Levsin/SL] 0.125 mg Tablet, Sublingual 0.125 mg SUBLINGUAL Q4H PRN (Reason: Abdominal Cramping) RF: 0 dicyclomine 10 mg Capsule 10 - 20 mg PO Q6H PRN (Reason: Abdominal Pain) RF: 0 pantoprazole [Protonix] 40 mg tablet,delayed release (DR/EC) 40 mg PO QAM RF: 0 lorazepam [Ativan] 2 mg/mL Solution 0.5 mg buccal Q6H PRN (Reason: Nausea) RF: 0 gabapentin 250 mg/5 mL solution See Rx Instructions .ROUTE .COMPLEX RF: 0 fexofenadine 180 mg Tablet 180 mg PO DAILY RF: 0 hydromorphone 1 mg/mL liquid 2 mg PO Q6 PRN (Reason: Pain, Severe) RF: 0 Discharge Orders: Discharge Order (Routine); Ordered 10/20/20 Ordered By: Mat Sharma Admission Data Admit Date/Time: 10/20/20 03:44 Attending Provider: Catrina Turner Admit Provider: Celso Babin Primary Care Provider: Mariah Addison Other Providers: Viridiana Sharma Other Interventions: Discharge Summary Assessment (RN) Last Done: 10/20/20 14:21 Supervising Physician Co-Signing Physician Notes Resident Physician Supervision Note: I independently interviewed and examined the patient and verified the solorzano history and physical, reviewed labs and image studies and agree with resident Dr. Sharma findings and care plan. Resident Activity Tracking Resident Involvement: Resident Care Provided Care Provided: Adult Hospital Medicine
== END 2020-10-20 12:13 | disposition short-term general hospital (02) ==
LOC: ED 17:35 → 3W 17:35 → SUATTDRO 10-20 03:44 → 3W 10-20 05:22

== ENCOUNTER 2021-06-13 09:01 | Inpatient (IN) ==
--- NOTE | 2021-06-13 09:57 | History & Physical Report ---
Date of Service June 13, 2021 Assessment & Plan (1) Abdominal pain: Plan: Acute/chronic. Acutely she reports that the pain is very similar to past episodes of intussusception. CT was obtained - no abnormalities including no intussusception. Will allow clears. LFTs wnl. Lipase wnl. Serum HCG negative. Could have gastritis, PUD, etc Cont pepcid 20mg IV BID. Cont PPI. Pain meds prn. Bentyl x 1 now, then prn thereafter. (2) Chronic malnutrition: Plan: At the recommendation of her GI physicians at [facility] she will initiate TPN. She has a central a-port for such. "Recipe" for the TPN was devised by the nutritional support team at [facility]. A copy of those instructions was forwarded to our pharmacy staff. Repeat labs in am including mag/phos. Previous b12, folate levels were wnl. 25-OH vit D level checked in 2021 was normal (>40). BMP, mag, phos in am. (3) On total parenteral nutrition (TPN): Plan: h/o prolonged TPN usage from 2016 to ~2019. Now re-initiating such at recommendation of [facility] GI providers. LFTs, mag, phos, etc all noted to be normal. Appreciate pharmacy assistance. Repeat labs in am. (4) Chronic migraine: Plan: No issues at this time. (5) Gastrostomy tube in place: Plan: No issues with her G-tube at this time. J-portion removed about 2 weeks ago in [place]. (6) Intussusception: Plan: H/o recurrent episodes, only 1 of which led to hospitalization. No evidence of such on today's CT. She has a fairly benign abdomen on exam today. Monitor carefully. Given the normal CT a/p will start with clear liquids. (7) SMAS (superior mesenteric artery syndrome): Plan: s/p surgery years ago. (8) Adrenal insufficiency: Plan: Chronic hydrocortisone usage for such diagnosis -- 15mg qam, 10mg afternoon. To avoid adrenal crisis start hydrocortisone 25mg IV BID. (9) Tachycardia: Plan: 2nd to pain? 2nd to anxiety? 100% sats in RA - doubt PE. Place on telemetry - follow this carefully. (10) DVT prophylaxis: Plan: heparin 5000 BID Plan: pt's mother was extensively updated at bedside today History of Present Illness Chief Complaint: need for TPN Primary Care Provider: Mariah Addison DO Ms. Garcia is a 31yo female with PMH significant for chronic GI motility dysfunction, SMA syndrome s/p surgery, prior use of chronic TPN ([id number]), h/o G-J tube placement, adrenal insufficiency, several episodes of intussusception (last episode 11/05 requiring admission at the [facility]) and numerous hospital admissions for nausea/vomiting. She also had ileostomy creation at the [facility] in August 2020. She presents today with abdominal pain as well as to initiate TPN as recommended by her GI physicians at the [facility]. About 2 weeks ago she was seen in the GI office at [facility]. Due to ongoing issues with recurrent intussusception it was recommended that the J portion of her G-J tube be removed. The J tube was indeed removed. This was done as an outpatient. During that same visit it was advised that she resume TPN use for nutrition. At this time she is NOT using the G-tube for enteral feedings. She does continue to try and eat/drink orally. Her last PO intake was yesterday (soup, crackers). Ultimately Pilar was referred to the Nutritional Support Team at [place] who devised a TPN recipe for her. Attempts were made to start the TPN as an outpatient but were unsuccessful. Thus, she is here to begin the TPN. In addition to the above, the patient awoke with central abdominal pain under her G-tube at 4am. The pain has been coming/going. This has been associated with dry heaves. She has noted a drop-off in her ileostomy output. She typically empties the bag 4-5 times in a 24 hour period. Denies any fevers. Of note - Pilar mentions that the [facility] has been discussing a possible bowel transplant. Nothing is firm at this time regarding such. Finally the patient has a cast on her right forearm since 04/2021. She had been seen by orthopedics in [place] for this issue She states that she has a dislocation of the right wrist along with tendon issues. Patient continues on chronic steroids - hydrocortisone 15mg am; 10mg afternoon - for adrenal insufficiency. Allergies Allergy/AdvReac Type Severity Reaction Status Date / Time amoxicillin Allergy Intermediate RASH Verified 06/13/21 10:06 cefazolin Allergy Intermediate rash Verified 06/13/21 10:06 Cephalosporins Allergy Intermediate HIVES Verified 06/13/21 10:06 clavulanic acid Allergy Intermediate HIVES Verified 06/13/21 10:06 iron [From Venofer] Allergy Intermediate Muscle Pain Verified 06/13/21 10:06 Penicillins Allergy Intermediate HIVES Verified 06/13/21 10:06 prochlorperazine Allergy Intermediate HIVES Verified 06/13/21 10:06 promethazine Allergy Intermediate hives, Verified 06/13/21 10:06 throat swelling sulfamethoxazole Allergy Intermediate RASH Verified 06/13/21 10:06 sumatriptan Allergy Intermediate RASH Verified 06/13/21 10:06 trimethoprim Allergy Intermediate RASH Verified 06/13/21 10:06 metoclopramide AdvReac Severe anxiety/ Verified 06/13/21 10:06 jittery diphenhydramine AdvReac Intermediate Tachycardia, Verified 06/13/21 10:06 Severe Anxiety WITH IV ONLY erythromycin base AdvReac Intermediate GI SYMPTOMS Verified 06/13/21 10:06 citalopram [From Celexa] AdvReac Unknown CAN'T Verified 06/13/21 10:06 REMEMBER MULTIVITAMIN Allergy Intermediate SEE COMMENT Uncoded 06/13/21 10:06 Home Medications Medication Instructions Recorded Confirmed Type dicyclomine 10 mg capsule 10 - 20 mg PO Q6H PRN 03/07/18 06/13/21 History hyoscyamine sulfate 0.125 mg 0.125 mg SUBLINGUAL Q4H PRN 03/07/18 06/13/21 History sublingual tablet (Levsin/SL) pantoprazole 40 mg tablet,delayed 40 mg PO QAM 09/08/19 06/13/21 History release (Protonix) famotidine 40 mg tablet 20 mg PO BID 11/28/19 06/13/21 History lorazepam 2 mg/mL injection 0.5 mg BUCCAL Q6H PRN 12/05/19 06/13/21 History solution (Ativan) hydrocortisone 10 mg tablet 10 - 15 mg PO BID 02/07/20 06/13/21 History ondansetron 4 mg disintegrating 4 mg TRANSLINGUAL Q6H PRN 02/07/20 06/13/21 History tablet trimethobenzamide 300 mg capsule 300 mg PO Q6H PRN 02/07/20 06/13/21 History fexofenadine 180 mg tablet 180 mg PO PM 10/09/20 06/13/21 History gabapentin 250 mg/5 mL oral 300 mg PO TID 10/09/20 06/13/21 History solution fludrocortisone 0.1 mg tablet 0.1 - 0.2 mg PO AMPM 12/12/20 06/13/21 History tramadol 50 mg tablet 50 mg PO BID PRN 04/15/21 06/13/21 History acetaminophen 500 mg tablet 1,000 mg PO Q6H PRN 06/13/21 06/13/21 History (Tylenol Extra Strength) ascorbic acid (vitamin C) 500 mg 0 mg PO PM 06/13/21 06/13/21 History chewable tablet (Vitamin C) coenzyme Q10 100 mg capsule 0 mg PO PM 06/13/21 06/13/21 History (CoQ-10) multivitamin with minerals-folic 2 tab PO PM 06/13/21 06/13/21 History acid 200 mcg chewable tablet (Multivitamin Gummies) turmeric 400 mg capsule 0 mg PO PM 06/13/21 06/13/21 History vitamin B complex 1 tab PO PM 06/13/21 06/13/21 History Past Med/Surg History Medical History (Updated 06/13/21 @ 22:33 by Praneeth Liu) Asthma Chronic migraine Endometriosis has had 3 surgeries for this. Last surgery [address] Hemorrhagic cystitis Hypotension Intussusception PICC (peripherally inserted central catheter) in place TPN SMAS (superior mesenteric artery syndrome) Sphincter of Oddi dysfunction DECREASED GI MOTILITY Uses feeding tube gastroparesis and decreased GI motility can not tolerate feeding and uses TPN UTI (urinary tract infection) Surgical History H/O adenoidectomy H/O laparoscopy H/O lumpectomy right breast 2011 History of appendectomy History of bowel resection Part of duodenum removed due to necrosis; done at [facility] 2019 History of hysterectomy 09/27/19 History of removal of Port-a-Cath 10/13/[address] Geiger, [facility], due to bacteremia/sepsis. History of vascular access device 2017 Hx of colonoscopy during procedure perforated small bowel 10/27/2019 at [facility], subsequent repair of duodenal area. Hx of ileostomy Hx of tonsillectomy S/P cholecystectomy 2015 S/P wrist surgery right Family History Father Hyperlipidemia Other No significant family history Social History Smoking Status: Never smoker Second Hand Exposure: No; Hx Alcohol Use: No Hx Substance Use: No Preferred Language: Luxembourger Communication Ability: Effective Visual Impairment: No Limitations Hearing Ability: Normal Riprap Worker Required: No Beliefs That Will Affect Care: None marital status: single Current Living Situation: Parent Current Living Situation Comment: Lives with family. current occupational status: unemployed Feels Safe at Home: Yes Safety Concerns: Feels Safe At This Time Assistive Devices: Contacts and Glasses Review of Systems Review of Systems: Gen - no fevers, chills, weight loss eyes - no visual changes HENT - no URI symptoms; no taste/smell loss or changes CV - no chest pain Pulm - no cough, wheezing, dyspnag GI - no blood via ileostomy - no dysuria; LMP - had hysterectomy musculo - no myalgias; pain R wrist skin - no rash neuro - chronic migraines; no change; no paresthesias psych - no depression endo - hypoglycemia but no diabetes Physical Exam Physical Exam: Gen - very thin, underweight, NAD Eyes - PERRL HENT - TMs clear b/l, nose clear, mouth without thrush plaques; MMM Neck - no lymph nodes, no thyroidmegaly Heart - tachy, s1 s2, no murmur lungs - CTA b/l Abd - soft, mildly tender epigastric region, ileostomy with bag in place, G-tube in place Ext - no edema, pulses 2+ b/l Psych - a/o x 3 Skin - no rashes; central a-port R upper chest clean neuro - strength 5/5 x 4 exts lymph - no cervical lymph nodes Results & Data Results & Data ([facility]) Vital Signs (Past 12 Hours) Vital Signs Temp Pulse Pulse Resp BP BP Pulse Ox 06/13/21 09:43 109 H 16 95/56 L 100 06/13/21 09:05 37.0 C 114 H 20 94/64 L 100 Laboratory Results Laboratory Results - last 24 hr 06/13/21 06/13/21 06/13/21 10:30 10:30 10:30 WBC 8.17 RBC 3.92 L Hgb 12.3 Hct 37.4 MCV 95.4 MCH 31.4 MCHC 32.9 RDW Std Deviation 44.0 RDW Coeff of Tim 12.7 Plt Count 311 MPV 10.5 H Immature Gran % (Auto) 0.2 Neut % (Auto) 57.8 Lymph % (Auto) 30.6 Morgan % (Auto) 10.3 Eos % (Auto) 0.9 Baso % (Auto) 0.2 Neut # (Auto) 4.72 Lymph # (Auto) 2.50 Morgan # (Auto) 0.84 H Eos # (Auto) 0.07 Baso # (Auto) 0.02 Immature Gran # (Auto) 0.02 Sodium 139 Potassium 3.5 Chloride 105 Carbon Dioxide 27 Anion Gap 7 BUN 8 Creatinine 0.70 Est Cr Clr Drug Dosing Not Reportable Est GFR ( Amer) 135.7 Est GFR (Non-Af Amer) 117.1 BUN/Creatinine Ratio 11.4 Glucose 92 POC Glucose Lactate Calcium 9.2 Phosphorus 3.2 Magnesium 1.9 Total Bilirubin 0.4 AST 14 ALT 10 Alkaline Phosphatase 37 Total Protein 6.5 Albumin 4.2 Globulin 2.3 L Albumin/Globulin Ratio 1.8 Lipase 26 TSH HCG, Qual SARS-CoV-2, RNA, NAAT 06/13/21 06/13/21 06/13/21 11:10 12:03 12:03 WBC RBC Hgb Hct MCV MCH MCHC RDW Std Deviation RDW Coeff of Tim Plt Count MPV Immature Gran % (Auto) Neut % (Auto) Lymph % (Auto) Morgan % (Auto) Eos % (Auto) Baso % (Auto) Neut # (Auto) Lymph # (Auto) Morgan # (Auto) Eos # (Auto) Baso # (Auto) Immature Gran # (Auto) Sodium Potassium Chloride Carbon Dioxide Anion Gap BUN Creatinine Est Cr Clr Drug Dosing Est GFR ( Amer) Est GFR (Non-Af Amer) BUN/Creatinine Ratio Glucose POC Glucose Lactate 0.9 Calcium Phosphorus Magnesium Total Bilirubin AST ALT Alkaline Phosphatase Total Protein Albumin Globulin Albumin/Globulin Ratio Lipase TSH 1.241 HCG, Qual Negative SARS-CoV-2, RNA, NAAT 06/13/21 06/13/21 12:10 16:09 WBC RBC Hgb Hct MCV MCH MCHC RDW Std Deviation RDW Coeff of Tim Plt Count MPV Immature Gran % (Auto) Neut % (Auto) Lymph % (Auto) Morgan % (Auto) Eos % (Auto) Baso % (Auto) Neut # (Auto) Lymph # (Auto) Morgan # (Auto) Eos # (Auto) Baso # (Auto) Immature Gran # (Auto) Sodium Potassium Chloride Carbon Dioxide Anion Gap BUN Creatinine Est Cr Clr Drug Dosing Est GFR ( Amer) Est GFR (Non-Af Amer) BUN/Creatinine Ratio Glucose POC Glucose 94 Lactate Calcium Phosphorus Magnesium Total Bilirubin AST ALT Alkaline Phosphatase Total Protein Albumin Globulin Albumin/Globulin Ratio Lipase TSH HCG, Qual SARS-CoV-2, RNA, NAAT NEGATIVE Diagnostic Findings Abdomen/Pelvis CT 06/13/21 10:30 CT abd pelvis IV con only CLINICAL HISTORY: h/o intussusception, central abd pain, eval path TECHNIQUE: Helical axial images of the abdomen and pelvis were obtained and displayed. Automated dose lowering techniques and/or adjustment according to patient size were utilized for this exam. This exam was performed with intravenous contrast. COMPARISON: Comparison is made to CT abdomen pelvis 04/15/2021 FINDINGS: Lower chest: No acute abnormality Liver: Unremarkable. No focal lesions are seen. Gallbladder and biliary tree: Patient is status post cholecystectomy. No intra- or extrahepatic biliary ductal dilation. Pancreas: Unremarkable, no focal lesions. Spleen: Unremarkable. Adrenals: Unremarkable. Kidneys and ureters: Unremarkable. Bladder: Unremarkable. Reproductive organs: Patient is status post hysterectomy. Bilateral ovaries are seen. Bowel: Bowel resection is seen. There is a gastrostomy tube. A double pleural ileostomy is noted. Lymph nodes Retroperitoneal: Unremarkable. Mesenteric: Unremarkable. Pelvic: Unremarkable. Peritoneum: A moderate amount of free fluid is in the pelvis. Vessels: Unremarkable. Abdominal wall: Unremarkable. Bones: Unremarkable. IMPRESSION: No acute process is seen. Postsurgical changes are again noted within the bowel. No evidence of bowel obstruction. ACT 112: Negative or not required by law. Electronically signed by: Tony Barnes M.D. 06/13/2021 12:32 PM Code Status & VTE Plan Code Status full PG Care Time/CCT Total # of Minutes Spent Total Time Spent with Patient: Total time spent is greater than 50% in coordination of care (as documented) at patient's floor/unit and/or counseling patient: Coding Level of Care Code 68945 Initial Inpt Care Lvl 3 Diagnoses Abdominal pain R10.9 Chronic migraine G43.[address] Z93.1 Intussusception K56.1 SMAS (superior mesenteric artery syndrome) K55.1 Tachycardia R00.0 On total parenteral nutrition (TPN) Z78.9 DVT prophylaxis Z29.9 Chronic malnutrition E46 Adrenal insufficiency E27.40
[2021-06-13 10:41] LABS: Basophils # (auto) 0.02 K/uL (0-0.2); Basophils % (auto) 0.2 %; Eosinophils # (auto) 0.07 K/uL (0-0.5); Eosinophils % (auto) 0.9 %; Hematocrit (blood only) 37.4 % (37-47); Hemoglobin 12.3 g/dL (12.0-16.0); Immature Granulocytes # (auto) 0.02 K/uL (0.00-0.02); Immature Granulocytes % (auto) 0.2 %; Lymphocytes % (auto) 30.6 %; Mean Corpuscular Hemoglobin 31.4 pg (25-34); Mean Corpuscular Hgb Conc 32.9 g/dL (32-36); Mean Corpuscular Volume 95.4 fL (80-100); Mean Platelet Volume 10.5 fL (7.4-10.4); Monocytes # (auto) 0.84 K/uL (0.11-0.59); Monocytes % (auto) 10.3 %; Neutrophils # (auto) 4.72 K/uL (1.4-6.5); Neutrophils % (auto) 57.8 %; Platelet Count 311 K/uL (130-400); RDW Coefficient of Variation 12.7 % (11.5-14.5); Red Blood Count 3.92 M/uL (4.2-5.4); White Blood Count 8.17 K/uL (4.8-10.8)
[2021-06-13] MEDS ORDERED: HYDROCORTISONE SOD SUCCINATE 100 MG/2 ML VIAL IV SCH (10:45)
[2021-06-13] MEDS ORDERED: ONDANSETRON INJ 2 MG/ML 2 ML VIAL ONE (10:49)
[2021-06-13] MEDS ORDERED: HYDROmorphone INJ 0.5 MG/0.5 ML SYR ONE (10:50)
[2021-06-13 11:16] LABS: Alanine Aminotransferase 10 U/L (7-52); Albumin Globulin Ratio 1.8 (0.9-2); Albumin Level 4.2 gm/dl (3.4-5.0); Alkaline Phosphatase 37 U/L (34-104); Anion Gap 7 (3-11); Aspartate Aminotransferase 14 U/L (13-39); BUN Creatinine Ratio 11.4 (10-20); Bilirubin,Total 0.4 mg/dl (0.2-1.0); Blood Urea Nitrogen 8 mg/dl (6-23); Calcium 9.2 mg/dl (8.5-10.1); Carbon Dioxide 27 mmol/L (21-32); Chloride 105 mmol/L (98-107); Est GFR (African American) 135.7 ml/min; Est GFR (Non-African American) 117.1 ml/min; Globulin 2.3 gm/dl (2.5-4.0); Glucose 92 mg/dl (70-99(Fasting)); Magnesium 1.9 mg/dl (1.7-2.4); Phosphorus 3.2 mg/dl (2.5-4.9); Potassium 3.5 mmol/L (3.5-5.1); Sodium 139 mmol/L (136-145); Total Protein 6.5 gm/dl (6.0-8.3)
[2021-06-13] MEDS ORDERED: OPTIRAY 320 100ml IV ONE (11:45)
[2021-06-13] MEDS ORDERED: TPN/PPN CONSULT PHARMACY PRN (12:23)
[2021-06-13 12:31] LABS: Pregnancy Test, Serum Negative (Negative)
--- NOTE | 2021-06-13 12:34 | CT Scan Report ---
CT abd pelvis IV con only CLINICAL HISTORY: h/o intussusception, central abd pain, eval path TECHNIQUE: Helical axial images of the abdomen and pelvis were obtained and displayed. Automated dose lowering techniques and/or adjustment according to patient size were utilized for this exam. This e xam was performed with intravenous contrast. COMPARISON: Comparison is made to CT abdomen pelvis 04/15/2021 FINDINGS: Lower chest: No acute abnormality Liver: Unremarkable. No focal lesions are seen. Gallbladder and biliary tree: Patient is status post cholecystectomy. No intra- or extrahepatic bilia ry ductal dilation. Pancreas: Unremarkable, no focal lesions. Spleen: Unremarkable. Adrenals: Unremarkable. Kidneys and ureters: Unremarkable. Bladder: Unremarkable. Reproductive organs: Patient is status post hysterectomy. Bilateral ovaries are seen. Bowel: Bowel resection is seen. There is a gastrostomy tube. A double pleural ileostomy is noted. Lymph nodes Retroperitoneal: Unremarkable. Mesenteric: Unremarkable. Pelvic: Unremarkable. Peritoneum: A moderate amount of free fluid is in the pelvis. Vessels: Unremarkable. Abdominal wall: Unremarkable. Bones: Unremarkable. IMPRESSION: No acute process is seen. Postsurgical changes are again noted within the bowel. No evidence of bowel obstruction. ACT 112: Negative or not required by law. Electronically signed by: Tony Barnes M.D. 06/13/2021 12:32 PM
[2021-06-13] MEDS ORDERED: DEXTROSE 10% 1,000 ML IV PRN (13:24)
[2021-06-13] MEDS ORDERED: DICYCLOMINE HCL 10 MG CAP PO STA (13:57)
[2021-06-13] MEDS: SODIUM CHLORIDE 0.9% 1000ML 1,000 ML IV SCH (14:02)
[2021-06-13] MEDS: HYDROmorphone INJ 0.5 MG/0.5 ML SYR IV PRN ×3 (14:05→23:21)
[2021-06-13] MEDS ORDERED: HYDROmorphone INJ 0.5 MG/0.5 ML SYR IV PRN (15:00)
[2021-06-13] MEDS ORDERED: ACETAMINOPHEN 500 MG TAB PO PRN (15:46)
[2021-06-13] MEDS ORDERED: LORazepam 0.5 MG TAB SL PRN ×2 (15:49→16:00)
[2021-06-13] MEDS ORDERED: AMINO ACID 8% IV SCH (16:00)
[2021-06-13] MEDS ORDERED: CLINOLIPID 20% IV FAT EMULSION 250 ML IV SCH (16:00)
[2021-06-13] MEDS ORDERED: CENTRAL TPN IV SCH (16:00)
[2021-06-13] MEDS ORDERED: [UNRECOGNIZED DRUG - OTHER] IV SCH (16:00)
[2021-06-13] MEDS: GABAPENTIN 250 MG/5 ML 470 ML BTL PO SCH ×2 (16:31→21:23)
[2021-06-13] MEDS: ONDANSETRON INJ 2 MG/ML 2 ML VIAL IV PRN (19:18)
[2021-06-13] MEDS ORDERED: NON-FORMULARY MEDICATION (Turmeric 400 mg Capsule) PO SCH (21:00)
[2021-06-13] MEDS: FAMOTIDINE 20 MG in SYRINGE 3 ML IV SCH (21:22)
[2021-06-13] MEDS: HYDROCORTISONE SOD 25 MG in SYRINGE 0 ML IV SCH (21:23)
[2021-06-13] MEDS: FEXOFENADINE HCL 180 MG TAB PO SCH (21:23)
[2021-06-13] MEDS: VITAMIN B COMPLEX TAB PO SCH (21:23)
[2021-06-13] MEDS: FLUDROCORTISONE ACETATE 0.1 MG TAB PO SCH (21:24)
[2021-06-13] MEDS ORDERED: LORazepam 0.25 MG/0.5 ML VIAL IV STA (22:49)
[2021-06-13] MEDS: HEPARIN SOD 5,000 UNIT/0.5 ML VIAL SQ SCH (23:03)
[2021-06-14] MEDS: HYDROmorphone INJ 0.5 MG/0.5 ML SYR IV PRN ×5 (03:29→23:20)
[2021-06-14] MEDS: ONDANSETRON INJ 2 MG/ML 2 ML VIAL IV PRN ×3 (03:29→21:11)
[2021-06-14] MEDS ORDERED: LORazepam 0.25 MG/0.5 ML VIAL IV STA (06:34)
[2021-06-14 07:30] LABS: Calcium 8.1 mg/dl (8.5-10.1); Creatinine Clr Calc Pharmacy 107.9 ml/min; Est GFR (African American) 146.9 ml/min; Est GFR (Non-African American) 126.8 ml/min; Phosphorus 3.7 mg/dl (2.5-4.9); Potassium 3.8 mmol/L (3.5-5.1)
--- NOTE | 2021-06-14 08:05 | Pharmacy Report ---
Pharmacy PN Initial Consult - Date of Service June 14, 2021 - Scope Pharmacy has been consulted to manage parenteral nutrition orders and order appropriate labs. As part of the Nutrition Support Team guidelines, pharmacy will work in conjunction with dietary when determining the patients caloric needs. - Subjective The patient is a 31 year old F admitted on 06/13/21 10:32 for ABDOMINAL PAIN, INITIATION OF TPN. Patient is to receive parenteral nutrition for initiation of TPN. Pertinent PMH: N/A - Objective Height: 5 ft 6 in Weight: 45.3 kg Diet: NPO Vascular Access:: Central Intake & Output (Last 24Hrs): Intake & Output 06/12/21 06/13/21 06/14/21 06/15/21 06:59 06:59 06:59 06:59 Intake Total 250 / 250 Output Total 200 / 200 Balance 50 / 50 Weight 45.3 kg Laboratory Data (Last 24 Hrs):: 06/13/21 06/14/21 10:30 06:12 Sodium 139 139 Potassium 3.5 3.8 Chloride 105 108 H Carbon Dioxide 27 27 BUN 8 11 Creatinine 0.70 0.55 L Glucose 92 100 H Calcium 9.2 8.1 L Phosphorus 3.2 3.7 Magnesium 1.9 2.0 Total Bilirubin 0.4 AST 14 ALT 10 Alkaline Phosphatase 37 Albumin 4.2 Nutrition Assessment:: Please refer to the Notes section of the EMR for the most recent steamer operator note. - Assessment Ms Garcia is a 31 y/o F admitted for initiation of TPN. Consulted with dietary. Started TPN at half-rate of 30 mL/hr then will increase to full 50 mL/hr today. - Plan For day 2 of PN administration, the following will be ordered: Macronutrients Amino acids 96 grams/day Dextrose 168 grams/day Lipids 50 grams/day Micronutrients Combined electrolytes 40 mL - contains 35 mEq Na, 20 meq K, 4.5 mEq Ca, 5 mEq Mg, 35 mEq Cl, 29.5 mEq acetate per 20 mL Sodium phosphate 0 MMol Sodium chloride 20 mEq Sodium acetate 40 mEq Potassium phosphate 15 mMol Potassium chloride 0 mEq Potassium acetate 0 mEq Magnesium sulfate 0 mEq Calcium gluconate 0 mEq Multivitamins NONE DUE TO ALLERGY Trace Elements NONE Additional additives: Total volume 1273 mL to be infused over 24 hrs will provide 1450 kcal/day Labs to be ordered per PN order protocol Pharmacy will follow and adjust parenteral nutrition orders on a daily basis. Thank you.
--- NOTE | 2021-06-14 08:31 | Gastrointestinal Consultation ---
Date of Consultation June 14, 2021 Assessment & Plan (1) Chronic malnutrition: Abdominal pain - chronic. CT A/P on admission does not demonstrate intussusception. Will need to closely monitor as she has had recurrent intussusception previously. Currently tolerating minimal clear liquids. Chronic malnutrition - chronic. Per GI physicians at [facility], patient needs TPN. Admitted for initiation of TPN. She has been seen by the Motility clinic at [facility] for management as [facility] is unable to manage out of state TPN. TPN recommendations from [facility] zipper measurer were provided on admission. Coordination of care including case management ([employer] for home infustion) and nutrition continues. Gastrostomy tube in place: No issues with her G-tube at this time. J-portion removed about 2 weeks ago in [place]. Ileostomy: s/p loop ileostomy 08/2020 at [facility], no current issues Please refer to supervising physician addendum for further recommendations. (2) On total parenteral nutrition (TPN): (3) Gastrostomy tube in place: Supervising Physician Co-Signing Physician Notes I have seen and examined the patient. I agree with note above by YULISSA Lee except as noted below. HPI Mother with patient for H and P. Pt started on TPN and states blood sugars ok so far. PE Abdomen no bs, soft. A/P malnutrution--continue TPN with plan for outpt continuation I am going off service today at [address] De Los Santos is on schedule to be assuming GI care then and until thursday am. 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 Surgery was performed in October 2019 at [facility] - Laparotomy for perforation of Duodenum and G-tube replacement. Had GJ tube but J tube portion removed due to recurrent intussusception, was on chronic TPN for 3 years, laparoscopic loop ileostomy (08/2020) who presented to [facility] for admission to initiate TPN therapy due to inadequate caloric intake orally and via enteral nutrition. On exam/interview today, the patient is lying in bed in position of comfort. Her mother is in a chair at bedside. Right arm is casted. Reports nausea this morning. Was worse with lipid infusion. Managing symptoms with Ativan and zofran. Also c/o abdominal pain - concerned she has another intussusception. Negative CT A/P on admission. Denies vomiting. The patient is a lifetime nonsmoker with no significant second hand smoke exposures. Denies alcohol use. Denies recreational drug use. She lives at home with mom and dad and does not work as she says she has been dealing with her GI issues. Unmarried and no children. Allergies Allergy/AdvReac Type Severity Reaction Status Date / Time amoxicillin Allergy Intermediate RASH Verified 06/13/21 10:06 cefazolin Allergy Intermediate rash Verified 06/13/21 10:06 Cephalosporins Allergy Intermediate HIVES Verified 06/13/21 10:06 clavulanic acid Allergy Intermediate HIVES Verified 06/13/21 10:06 iron [From Venofer] Allergy Intermediate Muscle Pain Verified 06/13/21 10:06 Penicillins Allergy Intermediate HIVES Verified 06/13/21 10:06 prochlorperazine Allergy Intermediate HIVES Verified 06/13/21 10:06 promethazine Allergy Intermediate hives, Verified 06/13/21 10:06 throat swelling sulfamethoxazole Allergy Intermediate RASH Verified 06/13/21 10:06 sumatriptan Allergy Intermediate RASH Verified 06/13/21 10:06 trimethoprim Allergy Intermediate RASH Verified 06/13/21 10:06 metoclopramide AdvReac Severe anxiety/ Verified 06/13/21 10:06 jittery diphenhydramine AdvReac Intermediate Tachycardia, Verified 06/13/21 10:06 Severe Anxiety WITH IV ONLY erythromycin base AdvReac Intermediate GI SYMPTOMS Verified 06/13/21 10:06 citalopram [From Celexa] AdvReac Unknown CAN'T Verified 06/13/21 10:06 REMEMBER MULTIVITAMIN Allergy Intermediate SEE COMMENT Uncoded 06/13/21 10:06 Home Medications Medication Instructions Recorded Confirmed Type dicyclomine 10 mg capsule 10 - 20 mg PO Q6H PRN 03/07/18 06/13/21 History hyoscyamine sulfate 0.125 mg 0.125 mg SUBLINGUAL Q4H PRN 03/07/18 06/13/21 History sublingual tablet (Levsin/SL) pantoprazole 40 mg tablet,delayed 40 mg PO QAM 09/08/19 06/13/21 History release (Protonix) famotidine 40 mg tablet 20 mg PO BID 11/28/19 06/13/21 History lorazepam 2 mg/mL injection 0.5 mg BUCCAL Q6H PRN 12/05/19 06/13/21 History solution (Ativan) hydrocortisone 10 mg tablet 10 - 15 mg PO BID 02/07/20 06/13/21 History ondansetron 4 mg disintegrating 4 mg TRANSLINGUAL Q6H PRN 02/07/20 06/13/21 History tablet trimethobenzamide 300 mg capsule 300 mg PO Q6H PRN 02/07/20 06/13/21 History fexofenadine 180 mg tablet 180 mg PO PM 10/09/20 06/13/21 History gabapentin 250 mg/5 mL oral 300 mg PO TID 10/09/20 06/13/21 History solution fludrocortisone 0.1 mg tablet 0.1 - 0.2 mg PO AMPM 12/12/20 06/13/21 History tramadol 50 mg tablet 50 mg PO BID PRN 04/15/21 06/13/21 History acetaminophen 500 mg tablet 1,000 mg PO Q6H PRN 06/13/21 06/13/21 History (Tylenol Extra Strength) ascorbic acid (vitamin C) 500 mg 0 mg PO PM 06/13/21 06/13/21 History chewable tablet (Vitamin C) coenzyme Q10 100 mg capsule 0 mg PO PM 06/13/21 06/13/21 History (CoQ-10) multivitamin with minerals-folic 2 tab PO PM 06/13/21 06/13/21 History acid 200 mcg chewable tablet (Multivitamin Gummies) turmeric 400 mg capsule 0 mg PO PM 06/13/21 06/13/21 History vitamin B complex 1 tab PO PM 06/13/21 06/13/21 History Patient History Medical History (Updated 06/13/21 @ 22:33 by Praneeth Liu) Asthma Chronic migraine Endometriosis has had 3 surgeries for this. Last surgery [address] Hemorrhagic cystitis Hypotension Intussusception PICC (peripherally inserted central catheter) in place TPN SMAS (superior mesenteric artery syndrome) Sphincter of Oddi dysfunction DECREASED GI MOTILITY Uses feeding tube gastroparesis and decreased GI motility can not tolerate feeding and uses TPN UTI (urinary tract infection) Surgical History H/O adenoidectomy H/O laparoscopy H/O lumpectomy right breast 2011 History of appendectomy History of bowel resection Part of duodenum removed due to necrosis; done at [facility] 2019 History of hysterectomy 09/27/19 History of removal of Port-a-Cath 10/13/[address] Geiger, [facility], due to bacteremia/sepsis. History of vascular access device 2017 Hx of colonoscopy during procedure perforated small bowel 10/27/2019 at [facility], subsequent repair of duodenal area. Hx of ileostomy Hx of tonsillectomy S/P cholecystectomy 2015 S/P wrist surgery right Family History Father Hyperlipidemia Other No significant family history Social History Smoking Status: Never smoker Second Hand Exposure: No; Hx Alcohol Use: No Hx Substance Use: No Preferred Language: Belgian Communication Ability: Effective Visual Impairment: No Limitations Hearing Ability: Normal Automotive Finance Manager Required: No Beliefs That Will Affect Care: None marital status: single Current Living Situation: Parent Current Living Situation Comment: Lives with family. current occupational status: unemployed Feels Safe at Home: Yes Safety Concerns: Feels Safe At This Time Assistive Devices: Glasses Review of Systems Review of Systems: All systems reviewed & are unremarkable except as noted in HPI & below Physical Exam Constitutional: WD/WN, vitals as above Respiratory: normal respiratory effort, lungs clear to auscultation Cardiovascular: RRR, no murmur, no edema Gastrointestinal (Abdomen): normal bowel sounds, soft, nontender, no hepatosplenomegaly ileostomy bag in place, g-tube intact Psychiatric: A+Ox3, euthymic affect Results & Data ([facility]) Vital Signs (Past 12 Hours) Vital Signs Temp Pulse Pulse Resp BP Pulse Ox 06/14/21 07:30 95 H 06/14/21 07:27 36.5 C 91 H 21 95/62 L 98 06/14/21 03:30 36.9 C 97 H 18 105/70 99 06/14/21 00:31 82 06/13/21 23:10 37.1 C 106 H 18 113/78 99 Laboratory Results Laboratory Results - last 24 hr 06/13/21 06/13/21 06/13/21 10:30 10:30 10:30 WBC 8.17 RBC 3.92 L Hgb 12.3 Hct 37.4 MCV 95.4 MCH 31.4 MCHC 32.9 RDW Std Deviation 44.0 RDW Coeff of Tim 12.7 Plt Count 311 MPV 10.5 H Immature Gran % (Auto) 0.2 Neut % (Auto) 57.8 Lymph % (Auto) 30.6 Gordon % (Auto) 10.3 Eos % (Auto) 0.9 Baso % (Auto) 0.2 Neut # (Auto) 4.72 Lymph # (Auto) 2.50 Gordon # (Auto) 0.84 H Eos # (Auto) 0.07 Baso # (Auto) 0.02 Immature Gran # (Auto) 0.02 Sodium 139 Potassium 3.5 Chloride 105 Carbon Dioxide 27 Anion Gap 7 BUN 8 Creatinine 0.70 Est Cr Clr Drug Dosing Not Reportable Est GFR ( Amer) 135.7 Est GFR (Non-Af Amer) 117.1 BUN/Creatinine Ratio 11.4 Glucose 92 POC Glucose Lactate Calcium 9.2 Phosphorus 3.2 Magnesium 1.9 Total Bilirubin 0.4 AST 14 ALT 10 Alkaline Phosphatase 37 Total Protein 6.5 Albumin 4.2 Globulin 2.3 L Albumin/Globulin Ratio 1.8 Lipase 26 TSH HCG, Qual SARS-CoV-2, RNA, NAAT 06/13/21 06/13/21 06/13/21 11:10 12:03 12:03 WBC RBC Hgb Hct MCV MCH MCHC RDW Std Deviation RDW Coeff of Tim Plt Count MPV Immature Gran % (Auto) Neut % (Auto) Lymph % (Auto) Gordon % (Auto) Eos % (Auto) Baso % (Auto) Neut # (Auto) Lymph # (Auto) Gordon # (Auto) Eos # (Auto) Baso # (Auto) Immature Gran # (Auto) Sodium Potassium Chloride Carbon Dioxide Anion Gap BUN Creatinine Est Cr Clr Drug Dosing Est GFR ( Amer) Est GFR (Non-Af Amer) BUN/Creatinine Ratio Glucose POC Glucose Lactate 0.9 Calcium Phosphorus Magnesium Total Bilirubin AST ALT Alkaline Phosphatase Total Protein Albumin Globulin Albumin/Globulin Ratio Lipase TSH 1.241 HCG, Qual Negative SARS-CoV-2, RNA, NAAT 06/13/21 06/13/21 06/13/21 12:10 16:09 23:31 WBC RBC Hgb Hct MCV MCH MCHC RDW Std Deviation RDW Coeff of Tim Plt Count MPV Immature Gran % (Auto) Neut % (Auto) Lymph % (Auto) Gordon % (Auto) Eos % (Auto) Baso % (Auto) Neut # (Auto) Lymph # (Auto) Gordon # (Auto) Eos # (Auto) Baso # (Auto) Immature Gran # (Auto) Sodium Potassium Chloride Carbon Dioxide Anion Gap BUN Creatinine Est Cr Clr Drug Dosing Est GFR ( Amer) Est GFR (Non-Af Amer) BUN/Creatinine Ratio Glucose POC Glucose 94 103 H Lactate Calcium Phosphorus Magnesium Total Bilirubin AST ALT Alkaline Phosphatase Total Protein Albumin Globulin Albumin/Globulin Ratio Lipase TSH HCG, Qual SARS-CoV-2, RNA, NAAT NEGATIVE 06/14/21 06:12 WBC RBC Hgb Hct MCV MCH MCHC RDW Std Deviation RDW Coeff of Tim Plt Count MPV Immature Gran % (Auto) Neut % (Auto) Lymph % (Auto) Gordon % (Auto) Eos % (Auto) Baso % (Auto) Neut # (Auto) Lymph # (Auto) Gordon # (Auto) Eos # (Auto) Baso # (Auto) Immature Gran # (Auto) Sodium 139 Potassium 3.8 Chloride 108 H Carbon Dioxide 27 Anion Gap 4 BUN 11 Creatinine 0.55 L Est Cr Clr Drug Dosing 107.9 Est GFR ( Amer) 146.9 Est GFR (Non-Af Amer) 126.8 BUN/Creatinine Ratio 20.0 Glucose 100 H POC Glucose Lactate Calcium 8.1 L Phosphorus 3.7 Magnesium 2.0 Total Bilirubin AST ALT Alkaline Phosphatase Total Protein Albumin Globulin Albumin/Globulin Ratio Lipase TSH HCG, Qual SARS-CoV-2, RNA, NAAT Diagnostic Findings Abdomen/Pelvis CT 06/13/21 10:30 CT abd pelvis IV con only CLINICAL HISTORY: h/o intussusception, central abd pain, eval path TECHNIQUE: Helical axial images of the abdomen and pelvis were obtained and displayed. Automated dose lowering techniques and/or adjustment according to patient size were utilized for this exam. This exam was performed with intravenous contrast. COMPARISON: Comparison is made to CT abdomen pelvis 04/15/2021 FINDINGS: Lower chest: No acute abnormality Liver: Unremarkable. No focal lesions are seen. Gallbladder and biliary tree: Patient is status post cholecystectomy. No intra- or extrahepatic biliary ductal dilation. Pancreas: Unremarkable, no focal lesions. Spleen: Unremarkable. Adrenals: Unremarkable. Kidneys and ureters: Unremarkable. Bladder: Unremarkable. Reproductive organs: Patient is status post hysterectomy. Bilateral ovaries are seen. Bowel: Bowel resection is seen. There is a gastrostomy tube. A double pleural ileostomy is noted. Lymph nodes Retroperitoneal: Unremarkable. Mesenteric: Unremarkable. Pelvic: Unremarkable. Peritoneum: A moderate amount of free fluid is in the pelvis. Vessels: Unremarkable. Abdominal wall: Unremarkable. Bones: Unremarkable. IMPRESSION: No acute process is seen. Postsurgical changes are again noted within the bowel. No evidence of bowel obstruction. ACT 112: Negative or not required by law. Electronically signed by: Tony Barnes M.D. 06/13/2021 12:32 PM
[2021-06-14] MEDS: PANTOprazole 40 MG TAB PO SCH (08:37)
[2021-06-14] MEDS: FLUDROCORTISONE ACETATE 0.1 MG TAB PO SCH ×2 (08:38→21:13)
[2021-06-14] MEDS: FAMOTIDINE 20 MG in SYRINGE 3 ML IV SCH ×2 (08:44→21:34)
[2021-06-14] MEDS: HYDROCORTISONE SOD 25 MG in SYRINGE 0 ML IV SCH ×2 (08:44→21:34)
[2021-06-14] MEDS: GABAPENTIN 250 MG/5 ML 470 ML BTL PO SCH ×3 (08:44→21:34)
[2021-06-14] MEDS: SODIUM CHLORIDE 0.9% 1000ML 1,000 ML IV SCH (09:12)
[2021-06-14] MEDS: HEPARIN SOD 5,000 UNIT/0.5 ML VIAL SQ SCH ×2 (11:29→21:12)
[2021-06-14] MEDS ORDERED: PANTOprazole 40 MG in SYRINGE 0 ML IV ONE (14:17)
--- NOTE | 2021-06-14 14:19 | Hospitalist Progress Note ---
Date of Service June 14, 2021 Assessment & Plan (1) Abdominal pain: Plan: Acute/chronic. CT a/p yesterday - no acute findings; no intussusception. acute pain - gastritis? non-GI cause? intestinal spasm? other? remains on dilaudid for the acute pain - try to wean. try IV ppi in [place]quel of oral PPI. bentyl prn. Pepcid IV. Gi has seen - no new recs. chronic pain - has seen pain management at [facility] -- recommendations: Pristiq, naltrexone, amitiza, buspar, vit C, tumeric, TCA. apparently she has been reluctant to try some of these. will discuss options w/ her tomorrow. (2) Chronic malnutrition: Plan: At the recommendation of her GI physicians at [facility] admitted here for TPN initiation. She has a central a-port for such. "Recipe" for the TPN was devised by the nutritional support team at [facility]. A copy of those instructions was forwarded to our pharmacy staff. All labs today wnl. Spoke with pharmacy - we are at the maximum amount of calories/macronutrients that we can provide at [facility]. Current TPN contents are about at 1/2 of the goal TPN amounts advised by [facility]. Further titration will need to be done as outpatient. Previous b12, folate levels were wnl. 25-OH vit D level checked in 2021 was normal (>40). BMP, mag, phos in am. (3) On total parenteral nutrition (TPN): Plan: h/o prolonged TPN usage from 2016 to ~2019. Now re-initiating such at recommendation of [facility] GI providers. LFTs, mag, phos, etc all noted to be normal. Appreciate pharmacy assistance. Repeat labs in am. (4) Chronic migraine: Plan: No issues at this time. (5) Gastrostomy tube in place: Plan: No issues with her G-tube at this time. J-portion removed about 2 weeks ago in [place]. (6) Intussusception: Plan: H/o recurrent episodes, only 1 of which led to hospitalization. No evidence of such on yesterday's CT. She has benign abdomen on exam once again today. Monitor carefully. Cont clears; advance as desired by patient. changed ativan from PO to IV at her request. we are venting her G-tube with guardado bag to gravity to help w/ nausea. (7) SMAS (superior mesenteric artery syndrome): Plan: s/p surgery years ago. (8) Adrenal insufficiency: Plan: Chronic hydrocortisone usage for such diagnosis -- 15mg qam, 10mg afternoon. Gave 25mg IV BID yesterday/today. Then resume normal PO dosing tomorrow. (9) Tachycardia: Plan: 2nd to pain? 2nd to anxiety? 100% sats in RA - doubt PE. Tele wnl. (10) DVT prophylaxis: Plan: heparin 5000 BID Plan: pt's mother was extensively updated at bedside yesterday I spoke with GI and reviewed her plan of care Spoke with social work - they are working on home TPN Admission and Anticipated Discharge Date Admission Date: June 13, 2021 Subjective tele wnl overnight pt continues with abd pain - unchanged - and using the IV dilaudid nearly sche duled q4h is anxious and constantly having nausea - even with g-tube attached to guardado bag to gravity - and requests ativan be switched from PO to IV patient reports having had IV Fe infusion ~ 2 weeks ago at [facility] spoke with pharmacist --- at 5pm the bag of TPN being hung is the max macronutrients that we can provide at [facility] the macronutrients and calories starting w/ geri's TPN bag is about 1/2 of the goal TPN that was recommended by [facility] Nutrition further titration will be needed after d/c home Review of Systems Review of Systems: gen - no fever cv - no pain pulm - no dyspnea GI - no change in chronic GI pain, nausea, etc Physical Exam Physical Exam: gen - upon entering room she was on her cell phone; comfortable, a/o x 3 mouth - MMM heart - mild tachycardia, s1 s2, no murmur lungs - CTA b/l abd - soft NT ND BS+; g-tube site c/d/i; ileostomy with bag in place ext - no edema; pulses 2+ b/l psych - a/o x 3; no anxiety; affect full today Results & Data Results & Data ([facility]) Vital Signs (Past 12 Hours) Vital Signs Temp Pulse Pulse Resp BP Pulse Ox 06/14/21 11:16 36.6 C 102 H 19 93/62 L 99 06/14/21 07:30 95 H 06/14/21 07:27 36.5 C 91 H 21 95/62 L 98 06/14/21 03:30 36.9 C 97 H 18 105/70 99 Laboratory Results bmp mag phos all wnl CT a/p - no acute findings 06/13/21 PG Care Time/CCT Total # of Minutes Spent Total Time Spent with Patient: Total time spent is greater than 50% in coordination of care (as documented) at patient's floor/unit and/or counseling patient: Coding Level of Care Code 33611 Subseq Hosp Care Lvl 2 Diagnoses Abdominal pain R10.9 Chronic malnutrition E46 On total parenteral nutrition (TPN) Z78.9 Chronic migraine G43.[address] Z93.1 Intussusception K56.1 SMAS (superior mesenteric artery syndrome) K55.1 Adrenal insufficiency E27.40 Tachycardia R00.0 DVT prophylaxis Z29.9
[2021-06-14] MEDS ORDERED: AMINO ACID 8% IV SCH (16:00)
[2021-06-14] MEDS ORDERED: CENTRAL TPN IV SCH (16:00)
[2021-06-14] MEDS ORDERED: [UNRECOGNIZED DRUG - OTHER] IV SCH (16:00)
[2021-06-14] MEDS ORDERED: CLINOLIPID 20% IV FAT EMULSION 250 ML IV SCH (16:00)
[2021-06-14] MEDS: LORazepam 0.5 MG/1 ML VIAL IV PRN (16:47)
[2021-06-14] MEDS ORDERED: HYDROmorphone INJ 0.5 MG/0.5 ML SYR IV STA (21:00)
[2021-06-14] MEDS: FEXOFENADINE HCL 180 MG TAB PO SCH (21:12)
[2021-06-14] MEDS: VITAMIN B COMPLEX TAB PO SCH (21:12)
[2021-06-14] MEDS: MULTIVITAMIN PO SCH (21:34)
[2021-06-14 21:36] LABS: Appearance Urine Turbid (Clear); Bacteria Urine Automated 1+ (Negative); Bilirubin Urine Negative (Negative); Blood Urine Negative (Negative); Color Urine Yellow; Epithelial Cell Urine Auto >30 /lpf (0-5); Glucose Urine UA Negative (Negative); Ketones Urine Negative (Negative); Leukocyte Esterase Urine Negative (Negative); Nitrite Urine Negative (Negative); Protein Urine Negative (Negative); Specific Gravity Urine 1.017 (1.000-1.030); Urobilinogen Urine Negative (Negative)
[2021-06-15] MEDS: LORazepam 0.5 MG/1 ML VIAL IV PRN ×3 (00:41→22:19)
[2021-06-15] MEDS: ONDANSETRON INJ 2 MG/ML 2 ML VIAL IV PRN ×3 (04:30→20:01)
[2021-06-15] MEDS: HYDROmorphone INJ 0.5 MG/0.5 ML SYR IV PRN ×5 (04:30→23:20)
[2021-06-15 07:51] LABS: Anion Gap 3 (3-11); BUN Creatinine Ratio 33.3 (10-20); Blood Urea Nitrogen 16 mg/dl (6-23); Calcium 7.9 mg/dl (8.5-10.1); Carbon Dioxide 28 mmol/L (21-32); Chloride 110 mmol/L (98-107); Creatinine Clr Calc Pharmacy 123.1 ml/min; Est GFR (African American) > 150.0 ml/min; Est GFR (Non-African American) 132.6 ml/min; Glucose 109 mg/dl (70-99(Fasting)); Magnesium 1.9 mg/dl (1.7-2.4); Phosphorus 3.1 mg/dl (2.5-4.9); Potassium 3.6 mmol/L (3.5-5.1); Sodium 141 mmol/L (136-145)
[2021-06-15] MEDS: FAMOTIDINE 20 MG in SYRINGE 3 ML IV SCH ×2 (09:29→20:02)
[2021-06-15] MEDS: GABAPENTIN 250 MG/5 ML 470 ML BTL PO SCH ×3 (09:29→23:25)
[2021-06-15] MEDS: FLUDROCORTISONE ACETATE 0.1 MG TAB PO SCH ×2 (09:32→23:24)
[2021-06-15] MEDS: HEPARIN SOD 5,000 UNIT/0.5 ML VIAL SQ SCH ×2 (09:32→23:26)
[2021-06-15] MEDS: SODIUM CHLORIDE 0.9% 1000ML 1,000 ML IV SCH (09:33)
[2021-06-15] MEDS: HYDROCORTISONE 10 MG TAB PO SCH ×2 (11:17→17:40)
[2021-06-15] MEDS: PANTOprazole 40 MG in SYRINGE 0 ML IV SCH (11:17)
--- NOTE | 2021-06-15 11:30 | Gastroenterology Progress Note ---
Date of Service June 15, 2021 Assessment & Plan (1) Chronic malnutrition: Plan: Chronic abdominal pain, multifactorial - CT A/P without intussusception. Will need to closely monitor. If pain/nausea worsen would get STAT CT. - Cont CLD - Venting G tube PRN Chronic malnutrition - Continue titration per nutrition and coordination with home care (2) On total parenteral nutrition (TPN): Plan: see above (3) Gastrostomy tube in place: Plan: see above Admission and Anticipated Discharge Date Admission Date: June 13, 2021 Subjective Reports continued abdominal pain and nausea, tolerating only small amounts of clears. Doesn't feel venting G tube helps as much when on TPN. Plan is to continue to titrate TPN to goal. BG stable overnight. Mother at side and both concerned about intermittent intussusception. CT neg on admission Review of Systems Review of Systems: A complete ROS is otherwise neg Physical Exam Physical Exam: NAD resting in bed with mother at side Eyes: eomi no scleral icterus Respiratory: no resp distress Cardiovascular: rrr see tele Gastrointestinal (Abdomen): soft, NT ND, normoactive BS Skin: warm dry intact Psychiatric: appropriate mood and affect Results & Data ([facility]) Vital Signs (Past 12 Hours) Vital Signs Temp Pulse Pulse Resp BP Pulse Ox 06/15/21 11:04 36.5 C 91 H 19 100/67 98 06/15/21 07:43 36.8 C 99 H 20 100/66 98 06/15/21 07:24 80 06/15/21 04:59 105 H 06/15/21 04:55 36.9 C 113 H 22 100/65 98 06/14/21 23:55 36.8 C 107 H 22 112/75 98
[2021-06-15] MEDS ORDERED: AMINO ACID 8% IV SCH ×2 (16:00)
[2021-06-15] MEDS ORDERED: CLINOLIPID 20% IV FAT EMULSION 250 ML IV SCH (16:00)
[2021-06-15] MEDS ORDERED: [UNRECOGNIZED DRUG - OTHER] IV SCH (16:00)
[2021-06-15] MEDS ORDERED: CENTRAL TPN IV SCH ×2 (16:00)
[2021-06-15] MEDS ORDERED: [UNRECOGNIZED DRUG - OTHER] IV SCH (16:00)
[2021-06-15] MEDS ORDERED: HYDROmorphone INJ 0.5 MG/0.5 ML SYR IV STA (21:06)
[2021-06-15 21:48] LABS: Appearance Urine Turbid (Clear); Bacteria Urine Automated Negative (Negative); Bilirubin Urine Negative (Negative); Blood Urine Negative (Negative); Cast Urine Automated 0 /lpf (0-5); Color Urine Yellow; Epithelial Cell Urine Auto 20-30 /lpf (0-5); Glucose Urine UA Negative (Negative); Ketones Urine Negative (Negative); Leukocyte Esterase Urine Negative (Negative); Nitrite Urine Negative (Negative); Protein Urine Negative (Negative); RBC Urine Automated 0-4 /hpf (0-4); Specific Gravity Urine 1.017 (1.000-1.030); Urobilinogen Urine Negative (Negative)
[2021-06-15] MEDS ORDERED: DICYCLOMINE HCL 10 MG CAP PO SCH (22:15)
[2021-06-15] MEDS: VITAMIN B COMPLEX TAB PO SCH (22:18)
[2021-06-15] MEDS: FEXOFENADINE HCL 180 MG TAB PO SCH (22:18)
[2021-06-15] MEDS: MULTIVITAMIN PO SCH (22:18)
--- NOTE | 2021-06-15 22:41 | Hospitalist Progress Note ---
Date of Service June 15, 2021 Assessment & Plan (1) Abdominal pain: Plan: Acute/chronic. CT a/p on 06/13/21 - no acute findings; no intussusception. acute pain - gastritis? non-GI cause? intestinal spasm? other? remains on dilaudid for the acute pain - try to wean on Thursday in anticipation of d/c home on Thursday. using IV ppi in raquel of oral PPI. bentyl prn. Pepcid IV. Gi has seen - no new recs. chronic pain - has seen pain management at [facility] -- recommendations: Pristiq, naltrexone, amitiza, buspar, vit C, tumeric, TCA. apparently she has been reluctant to try some of these. we talked about her chronic pain today; we even discussed alternative medicine options including accupuncture - she has tried in the past. (2) Chronic malnutrition: Plan: At the recommendation of her GI physicians at [facility] she was admitted here for TPN initiation. She has a central a-port for such. "Recipe" for the TPN was devised by the nutritional support team at [facility]. Spoke with pharmacy - we are at the maximum amount of calories/macronutrients that we can provide at [facility]. Current TPN contents are about at 1/2 of the goal TPN amounts advised by [place]. Further titration will need to be done as outpatient. Previous b12, folate levels were wnl. 25-OH vit D level checked in 2021 was normal (>40). BMP, mag, phos all remain normal. Plan - hopefully home on Thursday with TPN in place. Social work assisting with these arrangements. Pt's mother is aware of plan. (3) On total parenteral nutrition (TPN): Plan: h/o prolonged TPN usage from 2016 to ~2019. Now re-initiating such at recommendation of [facility] GI providers. LFTs, mag, phos, etc all noted to be normal. Appreciate pharmacy assistance with TPN management. Repeat labs in am. (4) Chronic migraine: Plan: No issues at this time. (5) Gastrostomy tube in place: Plan: No issues with her G-tube at this time. J-portion removed about 2 weeks ago in [place]. (6) Intussusception: Plan: H/o recurrent episodes, only 1 of which led to hospitalization. No evidence of such on admission CT. She has benign abdomen on exam once again today. Monitor carefully. Cont clears; advance as desired by patient. we are venting her G-tube with guardado bag to gravity to help w/ nausea. ativan or zofran prn nausea. (7) SMAS (superior mesenteric artery syndrome): Plan: s/p surgery years ago. (8) Adrenal insufficiency: Plan: Chronic hydrocortisone usage for such diagnosis -- 15mg qam, 10mg afternoon. Gave 25mg IV BID yesterday. Place back on PO hydrocortisone regimen today. (9) Tachycardia: Plan: 2nd to pain? 2nd to anxiety? 100% sats in RA - doubt PE. Tele wnl. (10) DVT prophylaxis: Plan: heparin 5000 BID Plan: pt's mother was extensively updated at bedside today cont TPN hopefully home on Thursday with such Admission and Anticipated Discharge Date Admission Date: June 13, 2021 Subjective no issues overnight continues to have central abdominal pain this is a chronic issue for her - she sees pain management at [facility] f or this numerous things have been advised - Pristiq, bentyl, etc. she is using dilaudid quite frequently for the pain using ativan for nausea/anxiety g-tube is being vented via guardado to gravity to help with nausea she is taking a limited amount of clear liquids only pt's mother is at bedside we discussed that the current TPN being given at [facility] is at about 1/2 of the macronutrient goals that were laid out by Gisela the rest of the TPN titration will be done as outpatient TPN should be delivered to their home by Thursday tele wnl overnight Review of Systems Review of Systems: gen - no fevers/chills cv - no chest pain pulm - no dyspnea or cough - no dysuria, no foul-smelling urine, no frequency GI - nausea but no emesis Physical Exam Physical Exam: gen - NAD, a/o x 3 mouth - MMM, no thrush heart - RRR, s1 s2, no murmur lungs - CTA b/l abd - soft NT ND BS+; g-tube site c/d/i; ileostomy with bag in place ext - no edema; pulses 2+ b/l psych - a/o x 3 chest - port, right upper chest - c/d/i Results & Data Results & Data ([facility]) Vital Signs (Past 12 Hours) Vital Signs Temp Pulse Pulse Resp BP Pulse Ox 06/15/21 19:11 36.6 C 96 H 18 101/67 99 06/15/21 15:43 74 06/15/21 15:28 36.5 C 105 H 21 99/66 L 99 06/15/21 11:04 36.5 C 91 H 19 100/67 98 Laboratory Results Laboratory Results - last 24 hr 06/15/21 06/15/21 06/15/21 00:52 06:31 07:00 Sodium 141 Potassium 3.6 Chloride 110 H Carbon Dioxide 28 Anion Gap 3 BUN 16 Creatinine 0.48 L Est Cr Clr Drug Dosing 123.1 Est GFR ( Amer) > 150.0 Est GFR (Non-Af Amer) 132.6 BUN/Creatinine Ratio 33.3 H Glucose 109 H POC Glucose 126 H 111 H Calcium 7.9 L Phosphorus 3.1 Magnesium 1.9 Triglycerides Urine Color Urine Appearance Urine pH Ur Specific [place] Urine Protein Urine Glucose (UA) Urine Ketones Urine Blood Urine Nitrite Urine Bilirubin Urine Urobilinogen Ur Leukocyte Esterase Urine WBC (Auto) Urine RBC (Auto) U Hyaline Cast (Auto) U Epithel Cells (Auto) Urine Bacteria (Auto) 06/15/21 06/15/21 06/15/21 11:20 12:33 18:05 Sodium Potassium Chloride Carbon Dioxide Anion Gap BUN Creatinine Est Cr Clr Drug Dosing Est GFR ( Amer) Est GFR (Non-Af Amer) BUN/Creatinine Ratio Glucose POC Glucose 90 116 H Calcium Phosphorus Magnesium Triglycerides 92 Urine Color Urine Appearance Urine pH Ur Specific [place] Urine Protein Urine Glucose (UA) Urine Ketones Urine Blood Urine Nitrite Urine Bilirubin Urine Urobilinogen Ur Leukocyte Esterase Urine WBC (Auto) Urine RBC (Auto) U Hyaline Cast (Auto) U Epithel Cells (Auto) Urine Bacteria (Auto) 06/15/21 21:35 Sodium Potassium Chloride Carbon Dioxide Anion Gap BUN Creatinine Est Cr Clr Drug Dosing Est GFR ( Amer) Est GFR (Non-Af Amer) BUN/Creatinine Ratio Glucose POC Glucose Calcium Phosphorus Magnesium Triglycerides Urine Color Yellow Urine Appearance Turbid A Urine pH 8.0 H Ur Specific Colton 1.017 Urine Protein Negative Urine Glucose (UA) Negative Urine Ketones Negative Urine Blood Negative Urine Nitrite Negative Urine Bilirubin Negative Urine Urobilinogen Negative Ur Leukocyte Esterase Negative Urine WBC (Auto) 1-5 Urine RBC (Auto) 0-4 U Hyaline Cast (Auto) 0 U Epithel Cells (Auto) 20-30 H Urine Bacteria (Auto) Negative PG Care Time/CCT Total # of Minutes Spent Total Time Spent with Patient: Total time spent is greater than 50% in coordination of care (as documented) at patient's floor/unit and/or counseling patient: Coding Level of Care Code 82318 Subseq Hosp Care Lvl 2 Diagnoses Abdominal pain R10.9 Chronic malnutrition E46 On total parenteral nutrition (TPN) Z78.9 Chronic migraine G43.[address] Z93.1 Intussusception K56.1 SMAS (superior mesenteric artery syndrome) K55.1 Adrenal insufficiency E27.40 Tachycardia R00.0 DVT prophylaxis Z29.9
[2021-06-16] MEDS: ONDANSETRON INJ 2 MG/ML 2 ML VIAL IV PRN ×4 (04:29→23:45)
[2021-06-16] MEDS: HYDROmorphone INJ 0.5 MG/0.5 ML SYR IV PRN ×6 (04:38→23:20)
[2021-06-16 07:04] LABS: Anion Gap 3 (3-11); BUN Creatinine Ratio 35.3 (10-20); Blood Urea Nitrogen 18 mg/dl (6-23); Calcium 7.9 mg/dl (8.5-10.1); Carbon Dioxide 28 mmol/L (21-32); Chloride 107 mmol/L (98-107); Creatinine Clr Calc Pharmacy 116.1 ml/min; Est GFR (African American) > 150.0 ml/min; Est GFR (Non-African American) 129.9 ml/min; Glucose 100 mg/dl (70-99(Fasting)); Magnesium 1.9 mg/dl (1.7-2.4); Phosphorus 3.1 mg/dl (2.5-4.9); Potassium 3.5 mmol/L (3.5-5.1); Sodium 138 mmol/L (136-145)
[2021-06-16] MEDS: LORazepam 0.5 MG/1 ML VIAL IV PRN ×3 (07:36→22:23)
--- NOTE | 2021-06-16 07:40 | Hospitalist Progress Note ---
Date of Service June 16, 2021 Assessment & Plan (1) Abdominal pain: Plan: Acute on chronic abdominal pain 2/2 intestinal spasms without intussusception or obstruction on imaging (CT A/P 06/13) Persistent w/ mild if any improvement Appreciate GI following - recommends STAT CT if worsening pain/nausea Pain control: APAP 1g QID PRN (not using) Bentyl Q6H PRN IV pepcid BID & IV pantoprazole 40 BID Gabapentin 200mg TID Dilaudid PRN breakthrough pain - requiring 0.5mg IV q4h consistently notes pain begins to recur/build up around hour 3. understands importance of minimizing opioids as they can inhibit motility/inc risk of obstruction -- As acute pain subsides, try to initiate some recs from prior [facility] Pain Mgmt consultation: Pristiq, naltrexone, amitiza, buspar, vit C, turmeric, TCA. Nausea control: Lorazepam IV PRN & IV zofran - alternating. Will need to switch to SL as we work toward discharge Gtube venting - Cont clears; advance as desired by patient. Would like to try saltines today - Gradual transition of above agents to PO/SL - Being considered for intestinal transplant at [facility] (2) Intussusception: Plan: See #1 (3) Gastrostomy tube in place: Plan: No issues with her G-tube at present. J-portion removed about 2 weeks ago in [place]. (4) SMAS (superior mesenteric artery syndrome): Plan: s/p surgery years ago. (5) Chronic malnutrition: Plan: Due to chronic abdominal pain w/ intussusception & intractable nausea w/ poor PO intake. H/o TPN [id number]. Admitted for TPN initiated at the recommendation of her GI physicians at [facility] Central a-port in place TPN "recipe" devised by nutritional support team at [facility]. Pharmacy staff has a copy.0 Dr Lui spoke w/ pharmacy & we are at maximum amount of calories/macronutrients that we can provide at [facility]. Current TPN contents are about at 1/2 of the goal TPN amounts advised by [place]. Further uptitration will need to be done outpatient. - Continue TPN w/ plans for further uptitration to goal OP - RFP, Mg daily (6) On total parenteral nutrition (TPN): Plan: see above (7) Chronic migraine: Plan: Persistent at baseline PRN APAP available (8) Adrenal insufficiency: Plan: Chronic Continue home hydrocortisone 15mg qam, 10mg qPM. GI ppx w/ PPI as above Given equivalent is ~6mg prednisone daily, no need for PJP ppx (9) Tachycardia: Plan: Baseline sinus tach in s/o pain & malnutrition & deconditioning (10) DVT prophylaxis: Plan: heparin 5000 BID Plan: mom updated at bedside Dispo: social work working on home TPN Admission and Anticipated Discharge Date Admission Date: June 13, 2021 Subjective Pilar Garcia is a 31 year old female admitted 06/13/21 with abdominal pain and for TPN initiation (given failed outpatient attempts at initiation) per her [facility] GI physicians. Her history is significant for chronic GI motility dysfunction, recurrent intussusception s/p recent ileostomy creation 08/2020 at [facility] as well as SMA syndrome s/p surgery, h/o chronic TPN dependence [id number], h/o G-J tube placem ent s/p J tube removal 05/2021, adrenal insufficiency, and recurrent nausea/vomiting. CT A/P 06/13 w/o acute obstruction or intussusception Today - Low normal BP & high HR (baseline) - AM BMP & lytes wnl w/ exception of hypocalcemia - TPN at 50/hr - Persistent abdominal discomfort, venting Gtube helps at times - Some nausea when lipids running or when tries eating. Occasional vomiting - Tolerating minimal liquid PO intake - Ileostomy output remains reduced from prior although in s/o reduced PO intake Review of Systems Review of Systems: No AVENDAÑO CP SOB LH Chronic persistent AVENDAÑO Dry mouth Physical Exam Physical Exam: General: Thin, lying in bed, appears uncomfortable but in no acute distress HEENT: mouth/lips dry CV: Normal rate, regular rhythm. No murmurs. Resp: Breathing comfortably on room air. Lungs clear to auscultation bilaterally. No wheezes, crackles, or rhonchi Abd: Soft, thin, no significant TTP. L sided gtube in place. R sided ileostomy Ext: Warm, well perfused. No edema RUE in cast Results & Data Results & Data ([facility]) Vital Signs (Past 12 Hours) Vital Signs Temp Pulse Pulse Resp BP Pulse Ox 06/16/21 04:26 98.1 F 92 H 18 104/72 97 06/16/21 00:19 77 06/15/21 23:12 97.7 F 88 19 119/81 99 PG Care Time/CCT Total # of Minutes Spent Total Time Spent with Patient: Total time spent is greater than 50% in coordination of care (as documented) at patient's floor/unit and/or counseling patient: Coding Level of Care Code 28832 Subseq Hosp Care Lvl 2 Diagnoses Abdominal pain R10.9 Chronic malnutrition E46 On total parenteral nutrition (TPN) Z78.9 Chronic migraine G43.[address] Z93.1 Intussusception K56.1 SMAS (superior mesenteric artery syndrome) K55.1 Adrenal insufficiency E27.40 Tachycardia R00.0 DVT prophylaxis Z29.9
[2021-06-16] MEDS: FAMOTIDINE 20 MG in SYRINGE 3 ML IV SCH ×2 (08:45→20:19)
[2021-06-16] MEDS: HYDROCORTISONE 10 MG TAB PO SCH ×2 (08:46→16:08)
[2021-06-16] MEDS: FLUDROCORTISONE ACETATE 0.1 MG TAB PO SCH (08:47)
[2021-06-16] MEDS: GABAPENTIN 250 MG/5 ML 470 ML BTL PO SCH ×2 (08:48→14:39)
[2021-06-16] MEDS: HEPARIN SOD 5,000 UNIT/0.5 ML VIAL SQ SCH ×2 (08:48→22:23)
--- NOTE | 2021-06-16 09:26 | Gastroenterology Progress Note ---
Date of Service June 16, 2021 Assessment & Plan (1) Chronic malnutrition: Plan: Chronic abdominal pain, multifactorial - CT A/P without intussusception. Will need to closely monitor. If pain/nausea worsen would get STAT CT. - Cont CLD - Venting G tube PRN Chronic malnutrition - Continue titration per nutrition and coordination with home care (2) On total parenteral nutrition (TPN): Plan: see above (3) Gastrostomy tube in place: Plan: see above Admission and Anticipated Discharge Date Admission Date: June 13, 2021 Subjective Continue to tolerate only few bites of georgian ice towards end of day. Keeps G tube to gravity and caps when she eats. Plan is to wean pain meds and set up TPN for discharge early next week. Similar pain and nausea to yesterday, no new complaints/questions. tele wnl overnight Review of Systems Review of Systems: A complete ROS is otherwise neg Physical Exam Physical Exam: NAD resting in bed with mother at side Eyes: eomi, no scleral icterus Respiratory: no resp distress Cardiovascular: see tele Gastrointestinal (Abdomen): non distended, g tub to gravity draining yellow gastric secretions Skin: dry intact Neurologic: AOx3 Psychiatric: appropriate mood and affect Results & Data ([facility]) Vital Signs (Past 12 Hours) Vital Signs Temp Pulse Pulse Resp BP Pulse Ox 06/16/21 07:33 36.7 C 93 H 20 99/68 L 98 06/16/21 04:26 36.7 C 92 H 18 104/72 97 06/16/21 00:19 77 06/15/21 23:12 36.5 C 88 19 119/81 99
[2021-06-16] MEDS: PANTOprazole 40 MG in SYRINGE 0 ML IV SCH (10:30)
[2021-06-16] MEDS: SODIUM CHLORIDE 0.9% 1000ML 1,000 ML IV SCH (10:34)
[2021-06-16] MEDS: DICYCLOMINE HCL 10 MG CAP PO PRN (15:35)
[2021-06-16] MEDS: CENTRAL TPN IV SCH (15:59)
[2021-06-16] MEDS: AMINO ACID 8% IV SCH (15:59)
[2021-06-16] MEDS: [UNRECOGNIZED DRUG - OTHER] IV SCH (15:59)
[2021-06-16] MEDS ORDERED: CLINOLIPID 20% IV FAT EMULSION 250 ML IV SCH (16:00)
[2021-06-16] MEDS ORDERED: ACETAMINOPHEN 65 ML IV ONE (23:00)
[2021-06-16] MEDS: HEPARIN 100 UNIT/ML 5ML FLUSH FLUSH PRN (23:22)
[2021-06-16] MEDS ORDERED: DEXTROSE 50% 50 ML SYRINGE IV ONE (23:56)
[2021-06-16 23:57] LABS: Basophils # (auto) 0.03 K/uL (0-0.2); Basophils % (auto) 0.3 %; Eosinophils # (auto) 0.33 K/uL (0-0.5); Eosinophils % (auto) 3.7 %; Hematocrit (blood only) 33.2 % (37-47); Hemoglobin 11.2 g/dL (12.0-16.0); Immature Granulocytes # (auto) 0.02 K/uL (0.00-0.02); Immature Granulocytes % (auto) 0.2 %; Lymphocytes # (auto) 1.95 K/uL (1.2-3.4); Lymphocytes % (auto) 21.8 %; Mean Corpuscular Hemoglobin 31.6 pg (25-34); Mean Corpuscular Volume 93.8 fL (80-100); Mean Platelet Volume 10.3 fL (7.4-10.4); Monocytes # (auto) 0.62 K/uL (0.11-0.59); Monocytes % (auto) 6.9 %; Neutrophils # (auto) 5.99 K/uL (1.4-6.5); Neutrophils % (auto) 67.1 %; Platelet Count 219 K/uL (130-400); RDW Coefficient of Variation 11.8 % (11.5-14.5); RDW Standard Deviation 40.1 fL (36.4-46.3); Red Blood Count 3.54 M/uL (4.2-5.4); White Blood Count 8.94 K/uL (4.8-10.8)
[2021-06-17 00:07] LABS: Mean Corpuscular Hgb Conc 33.7 g/dL (32-36)
--- NOTE | 2021-06-17 00:13 | Communication Note ---
Date of Service: June 16, 2021 S/Notified by RN at approx. 2230 that patient was c/o increasing abdominal pain and nausea. I reviewed patient's daytime notes and reviewed her GI history, which is appreciably complex. On my arrival, patient was in lateral decubitus position with hips flexed towards the abdomen. Mom was at the bedside. Patient was fully responsive and able to answer questions, though was visually in pain. She reported a "flare" of the pain that had been ongoing for the last several days. She said this current episode had been on-going for approx. 2 hours and waxed/waned in intensity. She describes it as a "squeezing and twisting"-type pain. She did recently have her lipid nutrition treatments running, which are a known trigger for her pain - but she describes this as different. She pinpoints the pain as in the center of her abdomen. It radiates somewhat towards her RUQ. She reports +nausea throughout this time with dry heaves. She reports decreased osteomy output over the last few days secondary to decreased input. She said her G-Tube output has been "normal," which Mom confirms. NOTE: On reassessment with attending physician shortly after my initial assessment, patient was appreciably more relaxed and leaning upwards. She appeared to be less in pain and was more conversive. O/On my exam: BP 112/78, HR 90, SpO2 98% RA, T 36.8C. She was able to lie supine at my request without difficulty. She appears tired, not diaphoretic. Cardiac exam revealing of high-normal rate with regular rhythm. Pulmonary exam was normal and relaxed. Abdominal exam: G-Tube output site and osteomy noted, no rash or discharge; hypoactive-sounding bowel sounds; abdomen is soft and non- distended; there is slight worsening in pain when I palpate around the umbilicus. There is no radiation towards the sign. No rebound or guarding. A&P/ - Medically-complex 31-year-old female with known history of chronic GI dysmotility, recurrent intussusception s/p recent ileostomy creation 08/2020, previous SMAS s/p correction, TPN dependence, h/o GJT placement s/p J-tube removal in 2021, adrenal insufficiency, and recurrent n/v reporting phasic-type worsening of centralized abdominal pain x 2 hours that is different compared to her previous bouts of pain. Her previous CT-A/P was reviewed, as were her previous notes. - Differential includes: intestinal spasm, flare of chronic functional pain, intussusception, pancreatitis, perforation, ischemia. Though pain is severe, abdomen feels non-surgical at this point. There are no overt peritoneal signs presently. - Will proceed with CT-A/P with IV contrast, STAT. - Will obtain CMP, CBC, lipase - Will give weight-adjusted APAP IV x 1 and antiemetics as needed. Hold from opiates until scan returns and any localization of pain is characterized. - Follow-up CT scan results, plan to be adjusted from there Resident Activity Tracking Resident Involvement: Resident Care Provided Care Provided: Adult Hospital Medicine
[2021-06-17 00:23] LABS: Alanine Aminotransferase 13 U/L (7-52); Albumin Globulin Ratio 1.8 (0.9-2); Albumin Level 3.7 gm/dl (3.4-5.0); Alkaline Phosphatase 32 U/L (34-104); Anion Gap 6 (3-11); Aspartate Aminotransferase 17 U/L (13-39); Bilirubin,Total 0.2 mg/dl (0.2-1.0); Blood Urea Nitrogen 14 mg/dl (6-23); Calcium 8.1 mg/dl (8.5-10.1); Carbon Dioxide 24 mmol/L (21-32); Chloride 107 mmol/L (98-107); Creatinine Clr Calc Pharmacy 118.5 ml/min; Est GFR (African American) > 150.0 ml/min; Est GFR (Non-African American) 130.8 ml/min; Globulin 2.1 gm/dl (2.5-4.0); Glucose 83 mg/dl (70-99(Fasting)); Lipase 20 U/L (11-82); Magnesium 1.8 mg/dl (1.7-2.4); Phosphorus 2.8 mg/dl (2.5-4.9); Potassium 3.6 mmol/L (3.5-5.1); Sodium 137 mmol/L (136-145); Total Protein 5.8 gm/dl (6.0-8.3)
[2021-06-17] MEDS ORDERED: OPTIRAY 320 100ml IV ONE (00:37)
[2021-06-17] MEDS: GABAPENTIN 250 MG/5 ML 470 ML BTL PO SCH ×4 (01:53→23:01)
[2021-06-17] MEDS: FLUDROCORTISONE ACETATE 0.1 MG TAB PO SCH ×3 (01:53→23:01)
[2021-06-17] MEDS: FEXOFENADINE HCL 180 MG TAB PO SCH ×2 (01:53→23:02)
[2021-06-17] MEDS: MULTIVITAMIN PO SCH ×2 (01:54→23:02)
[2021-06-17] MEDS: VITAMIN B COMPLEX TAB PO SCH ×2 (01:54→23:03)
[2021-06-17] MEDS: HYDROmorphone INJ 0.5 MG/0.5 ML SYR IV PRN ×6 (04:00→21:24)
[2021-06-17] MEDS: LORazepam 0.5 MG/1 ML VIAL IV PRN ×2 (04:39→21:11)
--- NOTE | 2021-06-17 07:23 | CT Scan Report ---
CT abd pelvis IV con only CLINICAL HISTORY: acute onset waxing/waning abdominal pain, umbilica COMPARISON STUDY: 06/13/2021 CT DOSE: 283.41 mGy.cm TECHNIQUE: Standard CT of the Abdomen and Pelvis was performed with IV contrast. A dose lowering rajinder hnique was utilized adhering to the principles of ALARA. Contrast Volume: Optiray 320, 94 ml. The patient did not receive oral contrast. FINDINGS: Lung base: The lung bases are clear. Abdominal cavity: There is no evidence for abdominal mass, adenopathy or ascites. Liver: There is homogeneous attenuation of the liver parenchyma. There is no evidence for enhancing m ass lesion. Spleen: There is homogeneous attenuation of the splenic parenchyma. There is no enhancing mass lesion . Pancreas: There is homogeneous attenuation of the pancreatic parenchyma. There is no evidence for mas s lesion or peripancreatic fluid collection. Gall Bladder: The patient is again status post cholecystectomy. Minimal physiologic dilatation of the common bile duct is present. Adrenal glands: The adrenal glands are normal in size and attenuation. There is no evidence for enhan cing mass lesion. Kidneys: There is homogeneous attenuation of the renal parenchyma bilaterally. There is no evidence f or renal calculus or hydronephrosis. There is no evidence for enhancing mass. Bowel: Gastrostomy tube is in place. The patient is status post previous bowel surgery with surgical clips seen within the pelvis. Ileostomy is present in the right lower quadrant. There is no evidence for bowel loop dilatation or obstruction. However, there is mild mucosal thickening of small bowel lo ops which can be seen with gastroenteritis. There are no inflammatory changes present. There is no ev idence for free air. Bladder: The bladder is within normal limits with no evidence for focal mass, calculus or diverticulu m. : There is no evidence for pelvic mass or adenopathy. There is no evidence for pelvic ascites. Vasculature: There is no evidence for aneurysmal dilatation of the abdominal aorta. Osseous structures: There is no acute osseous pathology. IMPRESSION: 1. Right lower quadrant ileostomy with no evidence for bowel loop dilatation or obstruction. However, there is mild mucosal thickening of small bowel loops which can be seen with gastroenteritis. 2. Gastrostomy tube is also in place. 3. No other evidence for acute intra-abdominal pelvic abnormality. 4. Additional nonacute findings as delineated above. ACT 112: Negative or not required by law. Electronically signed by: Aldo Merino M.D. 06/17/2021 7:22 AM
[2021-06-17] MEDS: ONDANSETRON INJ 2 MG/ML 2 ML VIAL IV PRN ×2 (08:03→16:43)
[2021-06-17] MEDS: HEPARIN 100 UNIT/ML 5ML FLUSH FLUSH PRN (08:03)
--- NOTE | 2021-06-17 08:41 | Gastroenterology Progress Note ---
Date of Service June 17, 2021 Assessment & Plan (1) Chronic malnutrition: Plan: Chronic abdominal pain, multifactorial -Worsened pain through the night. Stat rad CT A/P with IV contrast without intussusception and also reviewed by [facility] radiologist. Will need to closely monitor. - Continue clear liquids as patient tolerates - Venting G tube PRN - Patient has been evaluated previously by the pain management team at [facility] with recommendations (per patient report) focusing on nerve pain with regimen to include Pristiq, naltrexone, Amitiza, buspirone, vitamin C, turmeric, kale with all of oil, TCA. I have requested that most recent records including pain management, GI, and surgery be obtained from [facility]. Chronic malnutrition - Continue titration per nutrition and coordination with home care Please refer to supervising physician addendum for further recommendations. (2) On total parenteral nutrition (TPN): Plan: see above (3) Gastrostomy tube in place: Plan: see above Admission and Anticipated Discharge Date Admission Date: June 13, 2021 Supervising Physician Co-Signing Physician Notes I have seen and examined the patient. I agree with note above by YULISSA Lee except as noted below. HPI Increased abd pain noted last pm. CT a/p nonspecifice small bowel thickening but no intussecption. Abd pain seems to come in waves. At time of visit not much pain. PE Abdomen no bs appreciated, soft, no guarding nor rebound A/P chronic abd pain---perhaps worsening in the hospital secondary to narcotics which can sometimes have paradoxical effect of pain exacertation-suggested to patient she consider having dose cut, lengthened or stop entireley intestinal dysmotilty malnutrtion---on TPN and glucose seems stable. Nutrition can manage cutting down from 24 hours to timed sessions as outpt. Subjective The patient is sleeping. Her mother is at bedside. The patient wakes easily with verbal stimuli. She notes persistent abdominal discomfort and frustration as she feels this is consistent with her previous intussusception however imaging findings do not demonstrate intussusception. Reports nausea that is persistent with lipid infusion or when trying to eat. Some dry heaves but denies vomiting at present time. Tolerating minimal p.o. liquid intake. Ileostomy output reduced but also reflect decreased oral intake. Review of Systems Review of Systems: All systems reviewed & are unremarkable except as noted in HPI & below Physical Exam Constitutional: WD/WN, vitals as above Respiratory: normal respiratory effort, lungs clear to auscultation Cardiovascular: RRR, no murmur, no edema Gastrointestinal (Abdomen): Inspection/Auscultation: abdomen normal to inspection and normal bowel sounds; abdomen not distended Percussion/Palpation: + abdomen tender and abdomen soft; no guarding and abdomen not rigid Psychiatric: A+Ox3, euthymic affect Results & Data ([facility]) Vital Signs (Past 12 Hours) Vital Signs Temp Pulse Pulse Resp BP Pulse Ox 06/17/21 07:38 69 06/17/21 06:46 36.6 C 82 20 103/66 98 06/17/21 03:00 37.0 C 90 20 103/65 97 06/17/21 02:37 95 H 06/16/21 22:38 36.8 C 95 H 24 112/78 98 Laboratory Results Laboratory Results - last 24 hr 06/16/21 06/16/21 06/16/21 11:26 16:23 19:51 WBC RBC Hgb Hct MCV MCH MCHC RDW Std Deviation RDW Coeff of Tim Plt Count MPV Immature Gran % (Auto) Neut % (Auto) Lymph % (Auto) Swisher % (Auto) Eos % (Auto) Baso % (Auto) Neut # (Auto) Lymph # (Auto) Swisher # (Auto) Eos # (Auto) Baso # (Auto) Immature Gran # (Auto) Sodium Potassium Chloride Carbon Dioxide Anion Gap BUN Creatinine Est Cr Clr Drug Dosing Est GFR ( Amer) Est GFR (Non-Af Amer) BUN/Creatinine Ratio Glucose POC Glucose 94 100 H 104 H Calcium Phosphorus Magnesium Total Bilirubin AST ALT Alkaline Phosphatase Total Protein Albumin Globulin Albumin/Globulin Ratio Lipase 06/16/21 06/16/21 06/17/21 23:44 23:44 00:21 WBC 8.94 RBC 3.54 L Hgb 11.2 L Hct 33.2 L MCV 93.8 MCH 31.6 MCHC 33.7 RDW Std Deviation 40.1 RDW Coeff of Tim 11.8 Plt Count 219 MPV 10.3 Immature Gran % (Auto) 0.2 Neut % (Auto) 67.1 Lymph % (Auto) 21.8 Swisher % (Auto) 6.9 Eos % (Auto) 3.7 Baso % (Auto) 0.3 Neut # (Auto) 5.99 Lymph # (Auto) 1.95 Swisher # (Auto) 0.62 H Eos # (Auto) 0.33 Baso # (Auto) 0.03 Immature Gran # (Auto) 0.02 Sodium 137 Potassium 3.6 Chloride 107 Carbon Dioxide 24 Anion Gap 6 BUN 14 Creatinine 0.50 L Est Cr Clr Drug Dosing 118.5 Est GFR ( Amer) > 150.0 Est GFR (Non-Af Amer) 130.8 BUN/Creatinine Ratio 28.0 H Glucose 83 POC Glucose 86 Calcium 8.1 L Phosphorus 2.8 Magnesium 1.8 Total Bilirubin 0.2 AST 17 ALT 13 Alkaline Phosphatase 32 L Total Protein 5.8 L Albumin 3.7 Globulin 2.1 L Albumin/Globulin Ratio 1.8 Lipase 20 06/17/21 06:16 WBC RBC Hgb Hct MCV MCH MCHC RDW Std Deviation RDW Coeff of Tim Plt Count MPV Immature Gran % (Auto) Neut % (Auto) Lymph % (Auto) Swisher % (Auto) Eos % (Auto) Baso % (Auto) Neut # (Auto) Lymph # (Auto) Swisher # (Auto) Eos # (Auto) Baso # (Auto) Immature Gran # (Auto) Sodium Potassium Chloride Carbon Dioxide Anion Gap BUN Creatinine Est Cr Clr Drug Dosing Est GFR ( Amer) Est GFR (Non-Af Amer) BUN/Creatinine Ratio Glucose POC Glucose 104 H Calcium Phosphorus Magnesium Total Bilirubin AST ALT Alkaline Phosphatase Total Protein Albumin Globulin Albumin/Globulin Ratio Lipase Diagnostic Findings Abdomen/Pelvis CT 06/16/21 23:16 CT abd pelvis IV con only CLINICAL HISTORY: acute onset waxing/waning abdominal pain, umbilica COMPARISON STUDY: 06/13/2021 CT DOSE: 283.41 mGy.cm TECHNIQUE: Standard CT of the Abdomen and Pelvis was performed with IV contrast. A dose lowering technique was utilized adhering to the principles of ALARA. Contrast Volume: Optiray 320, 94 ml. The patient did not receive oral contrast. FINDINGS: Lung base: The lung bases are clear. Abdominal cavity: There is no evidence for abdominal mass, adenopathy or a scites. Liver: There is homogeneous attenuation of the liver parenchyma. There is no evidence for enhancing mass lesion. Spleen: There is homogeneous attenuation of the splenic parenchyma. There is no enhancing mass lesion. Pancreas: There is homogeneous attenuation of the pancreatic parenchyma. There is no evidence for mass lesion or peripancreatic fluid collection. Gall Bladder: The patient is again status post cholecystectomy. Minimal physiologic dilatation of the common bile duct is present. Adrenal glands: The adrenal glands are normal in size and attenuation. There is no evidence for enhancing mass lesion. Kidneys: There is homogeneous attenuation of the renal parenchyma bilaterally. There is no evidence for renal calculus or hydronephrosis. There is no evidence for enhancing mass. Bowel: Gastrostomy tube is in place. The patient is status post previous bowel surgery with surgical clips seen within the pelvis. Ileostomy is present in the right lower quadrant. There is no evidence for bowel loop dilatation or obstruction. However, there is mild mucosal thickening of small bowel loops which can be seen with gastroenteritis. There are no inflammatory changes prese nt. There is no evidence for free air. Bladder: The bladder is within normal limits with no evidence for focal mass, calculus or diverticulum. : There is no evidence for pelvic mass or adenopathy. There is no evidence for pelvic ascites. Vasculature: There is no evidence for aneurysmal dilatation of the abdominal aorta. Osseous structures: There is no acute osseous pathology. IMPRESSION: 1. Right lower quadrant ileostomy with no evidence for bowel loop dilatation or obstruction. However, there is mild mucosal thickening of small bowel loops which can be seen with gastroenteritis. 2. Gastrostomy tube is also in place. 3. No other evidence for acute intra-abdominal pelvic abnormality. 4. Additional nonacute findings as delineated above. ACT 112: Negative or not required by law. Electronically signed by: Aldo Merino M.D. 06/17/2021 7:22 AM
[2021-06-17 09:36] LABS: BUN Creatinine Ratio 32.7 (10-20); Calcium 8.1 mg/dl (8.5-10.1); Creatinine Clr Calc Pharmacy 113.4 ml/min; Est GFR (African American) 149.6 ml/min; Est GFR (Non-African American) 129.1 ml/min; Phosphorus 3.8 mg/dl (2.5-4.9); Potassium 3.6 mmol/L (3.5-5.1)
[2021-06-17] MEDS: HYDROCORTISONE 10 MG TAB PO SCH ×2 (09:40→15:27)
[2021-06-17] MEDS: FAMOTIDINE 20 MG in SYRINGE 3 ML IV SCH ×2 (09:40→23:09)
[2021-06-17] MEDS: HEPARIN SOD 5,000 UNIT/0.5 ML VIAL SQ SCH (09:42)
[2021-06-17] MEDS: SODIUM CHLORIDE 0.9% 1000ML 1,000 ML IV SCH (09:58)
[2021-06-17 11:34] LABS: Albumin Level 3.7 gm/dl (3.4-5.0); Magnesium 1.9 mg/dl (1.7-2.4)
[2021-06-17] MEDS: PANTOprazole 40 MG in SYRINGE 0 ML IV SCH (13:46)
--- NOTE | 2021-06-17 14:34 | Hospitalist Progress Note ---
Date of Service June 17, 2021 Assessment & Plan (1) Abdominal pain: Plan: Acute/chronic. CT a/p on 06/13/21 - no acute findings; no intussusception. Repeat CT 06/16 with mild mucosal thickening of small bowel loops but otherwise unremarkable. acute pain - gastritis? non-GI cause? intestinal spasm? other? remains on dilaudid for the acute pain - I will let her determine her course of this currently unless her stay is much more prolonged than her usual. using IV ppi in raquel of oral PPI. bentyl prn. Pepcid IV. Gi has seen - no new recs. chronic pain - has seen pain management at [facility] -- recommendations: Pristiq, naltrexone, amitiza, buspar, vit C, tumeric, TCA. apparently she has been reluctant to try some of these. (2) Intussusception: Plan: H/o recurrent episodes, only 1 of which led to hospitalization. No evidence of such on admission CT. She has benign abdomen on exam once again today. Monitor carefully. Cont clears; advance as desired by patient. we are venting her G-tube with guardado bag to gravity to help w/ nausea. ativan or zofran prn nausea. (3) Gastrostomy tube in place: Plan: No issues with her G-tube at this time. J-portion removed about 2 weeks ago in [place]. (4) SMAS (superior mesenteric artery syndrome): Plan: s/p surgery years ago. (5) Chronic malnutrition: Plan: At the recommendation of her GI physicians at [facility] she was admitted here for TPN initiation. She has a central a-port for such. "Recipe" for the TPN was devised by the nutritional support team at [facility]. Spoke with pharmacy - we are at the maximum amount of calories/macronutrients that we can provide at [facility]. Current TPN contents are about at 1/2 of the goal TPN amounts advised by [place]. Further titration will need to be done as outpatient. Previous b12, folate levels were wnl. 25-OH vit D level checked in 2021 was normal (>40). BMP, mag, phos all remain normal. Plan - home once TPN in place at home and patient able to wean off dilaudid. Social work assisting with these arrangements. Pt's mother is aware of plan. (6) On total parenteral nutrition (TPN): Plan: h/o prolonged TPN usage from 2016 to ~2019. Now re-initiating such at recommendation of [facility] GI providers. LFTs, mag, phos, etc all noted to be normal. Appreciate pharmacy assistance with TPN management. Repeat labs in am. (7) Chronic migraine: Plan: No issues at this time. (8) Adrenal insufficiency: Plan: Chronic hydrocortisone usage for such diagnosis -- 15mg qam, 10mg afternoon. Gave 25mg IV BID yesterday. Place back on PO hydrocortisone regimen 06/15. (9) Tachycardia: Plan: resolved Known POTS Plan: Updates patient and her mother at bedside today Diet - continue TPN VTE Prophylaxis - d/c heparin as injection to her abdomen not particularly helpful with her chronic pain and patient at reativel low risk despite malnutrition Disposition - home once able to wean off Dilaudid and TPN set up at home Admission and Anticipated Discharge Date Admission Date: June 13, 2021 Subjective Sudden worsening of pain overnight. CT abdomen pelvis showing no intussuscept ion. She is back to where she was yesterday in terms of pain at this time. Mother requesting every 3 hourly Dilaudid instead of every 4 hourly. Multiple providers including gastroenterology today discussed the problem with increasing the Dilaudid however opiates are part of her outpatient specialist providers plan for management of acute exacerbating events. Discussed how she manages to get uot of hospital and manage at home on prior occasions and she notes she is usually able to wean herself off the Review of Systems Review of Systems: All systems reviewed & are unremarkable except as noted in HPI & below Physical Exam Constitutional: + cachectic and + frail appearing; + not well nourished and no acute distress Respiratory: normal respiratory effort Gastrointestinal (Abdomen): Inspection/Auscultation: abdomen not distended Percussion/Palpation: + abdomen tender (generalized) and abdomen soft Skin: no rashes, warm and dry Psychiatric: A+Ox3, euthymic affect Results & Data Results & Data ([facility]) Vital Signs (Past 12 Hours) Vital Signs Temp Pulse Pulse Resp BP Pulse Ox 06/17/21 11:16 36.5 C 98 H 20 92/61 L 98 06/17/21 07:38 69 06/17/21 06:46 36.6 C 82 20 103/66 98 06/17/21 03:00 37.0 C 90 20 103/65 97 06/17/21 02:37 95 H PG Care Time/CCT Total # of Minutes Spent Total Time Spent with Patient: Total time spent is greater than 50% in coordination of care (as documented) at patient's floor/unit and/or counseling patient: Coding Level of Care Code 75120 Subseq Hosp Care Lvl 2 Diagnoses Abdominal pain R10.9 Intussusception K56.[address] Z93.1 SMAS (superior mesenteric artery syndrome) K55.1 Chronic malnutrition E46 On total parenteral nutrition (TPN) Z78.9 Chronic migraine G43.709 Adrenal insufficiency E27.40 Tachycardia R00.0
[2021-06-17] MEDS ORDERED: CLINOLIPID 20% IV FAT EMULSION 250 ML IV SCH (16:00)
[2021-06-17] MEDS ORDERED: [UNRECOGNIZED DRUG - OTHER] IV SCH (16:00)
[2021-06-17] MEDS ORDERED: CENTRAL TPN IV SCH (16:00)
[2021-06-17] MEDS ORDERED: AMINO ACID 8% IV SCH (16:00)
[2021-06-17] MEDS: DICYCLOMINE HCL 10 MG CAP PO PRN (16:37)
[2021-06-17] MEDS: [UNRECOGNIZED DRUG - OTHER] IV SCH (17:04)
[2021-06-17] MEDS: AMINO ACID 8% IV SCH (17:04)
[2021-06-17] MEDS: CENTRAL TPN IV SCH (17:04)
[2021-06-18] MEDS: ONDANSETRON INJ 2 MG/ML 2 ML VIAL IV PRN ×3 (00:26→16:13)
[2021-06-18] MEDS: HYDROmorphone INJ 0.5 MG/0.5 ML SYR IV PRN ×8 (00:28→22:12)
[2021-06-18] MEDS ORDERED: Nursing to Pharmacy Communication SCH (01:00)
[2021-06-18] MEDS: SODIUM CHLORIDE 0.9% 1000ML 1,000 ML IV SCH (02:40)
[2021-06-18 08:15] LABS: Albumin Level 3.6 gm/dl (3.4-5.0); BUN Creatinine Ratio 33.9 (10-20); Calcium 8.3 mg/dl (8.5-10.1); Creatinine Clr Calc Pharmacy 107.2 ml/min; Magnesium 1.9 mg/dl (1.7-2.4); Phosphorus 3.7 mg/dl (2.5-4.9); Potassium 3.7 mmol/L (3.5-5.1)
--- NOTE | 2021-06-18 08:33 | Gastroenterology Progress Note ---
Date of Service June 18, 2021 Assessment & Plan (1) Chronic malnutrition: Plan: Chronic abdominal pain, multifactorial - Abdominal pain continues to wax and wane in intensity. CT a/p 06/17/2021 nonspecific small bowel thickening but no intussusception. - h/o intussusception, will need to closely monitor. - Continue clear liquids as patient tolerates - Venting G tube PRN - Patient has been evaluated previously by the pain management team at [facility] with recommendations (per patient report) focusing on nerve pain with regimen to include Pristiq, naltrexone, Amitiza, buspirone, vitamin C, turmeric, kale with all of oil, TCA. I have requested that most recent records including pain management, GI, and surgery be obtained from [facility]. Narcotics managed by primary care team Intestinal dysmotility - Narcotics are discouraged for long-term management of chronic pain with intestinal dysmotility Chronic malnutrition - Continue titration per nutrition and coordination with home care - reached out to clinical nutrition this morning to determine plan for transitioning from 24 hour TPN infusion to 18 hour infusion as patient with h/o reported hypoglycemia through the night. Reported hypoglycemia at home may be a barrier for discharge. Discussed transitioning to 18 hour TPN infusion while inpatient with hospitalist and clinical nutrition. Please refer to supervising physician addendum for further recommendations. (2) On total parenteral nutrition (TPN): Plan: see above (3) Gastrostomy tube in place: Plan: see above Admission and Anticipated Discharge Date Admission Date: June 13, 2021 Supervising Physician Co-Signing Physician Notes I have seen and examined the patient. I agree with note above by YULISSA Lee except as noted below. HPI Mother with patient for H and P. Pt on break from TPN when in the room. NO particular abd pain complaints. PE Abdomen pos bs, soft, no guarding nor rebound A/P malnutrtion---in process of converting 24 hour TPN to 18 hours to make sure blood sugars ok chronic abd pain stable Subjective Patient awake, alert, and oriented this morning. Reports abdominal pain waxing and waning in intensity. Intermittent nausea, improved with nausea medication. Denies vomiting. Mother reports patient will be moved off telemetry floor today. Wondering what the plan is to transition from 24 hour TPN infusion to 18 hour infusion due to patient history of hypoglycemia. Ileostomy output liquid 150 ml, decreased oral intake and still on clear liquid diet. Review of Systems Review of Systems: All systems reviewed & are unremarkable except as noted in HPI & below Physical Exam Constitutional: WD/WN, vitals as above Respiratory: normal respiratory effort, lungs clear to auscultation Cardiovascular: RRR, no murmur, no edema Gastrointestinal (Abdomen): Inspection/Auscultation: abdomen normal to inspection and normal bowel sounds; abdomen not distended Percussion/Palpation: + abdomen tender and abdomen soft; no guarding and abdomen not rigid Psychiatric: A+Ox3, euthymic affect Results & Data ([facility]) Vital Signs (Past 12 Hours) Vital Signs Temp Pulse Pulse Resp BP BP Pulse Ox 06/18/21 08:03 36.7 C 76 17 90/59 L 98 06/18/21 07:14 91 H 06/18/21 03:11 36.5 C 82 16 95/61 L 98 06/17/21 22:51 36.7 C 76 16 103/67 98 06/17/21 22:30 70 Laboratory Results Laboratory Results - last 24 hr 06/17/21 06/17/21 06/17/21 08:55 08:58 13:55 Sodium 139 Potassium 3.6 Chloride 107 Carbon Dioxide 29 Anion Gap 3 BUN 17 Creatinine 0.52 L Est Cr Clr Drug Dosing 113.4 Est GFR ( Amer) 149.6 Est GFR (Non-Af Amer) 129.1 BUN/Creatinine Ratio 32.7 H Glucose 101 H POC Glucose 98 Calcium 8.1 L Phosphorus 3.8 D Magnesium 1.9 Cancelled Albumin 3.7 06/17/21 06/18/21 06/18/21 18:28 01:09 06:02 Sodium Potassium Chloride Carbon Dioxide Anion Gap BUN Creatinine Est Cr Clr Drug Dosing Est GFR ( Amer) Est GFR (Non-Af Amer) BUN/Creatinine Ratio Glucose POC Glucose 104 H 104 H 84 Calcium Phosphorus Magnesium Albumin 06/18/21 06/18/21 06:49 07:22 Sodium 139 Potassium 3.7 Chloride 107 Carbon Dioxide 27 Anion Gap 5 BUN 19 Creatinine 0.56 L Est Cr Clr Drug Dosing 107.2 Est GFR ( Amer) 146.0 Est GFR (Non-Af Amer) 126.0 BUN/Creatinine Ratio 33.9 H Glucose 97 POC Glucose 92 Calcium 8.3 L Phosphorus 3.7 Magnesium 1.9 Albumin 3.6
[2021-06-18] MEDS: GABAPENTIN 250 MG/5 ML 470 ML BTL PO SCH ×3 (08:43→20:54)
[2021-06-18] MEDS: FAMOTIDINE 20 MG in SYRINGE 3 ML IV SCH ×2 (08:43→21:27)
[2021-06-18] MEDS: FLUDROCORTISONE ACETATE 0.1 MG TAB PO SCH ×2 (08:45→20:54)
[2021-06-18] MEDS: HYDROCORTISONE 10 MG TAB PO SCH ×2 (08:46→16:18)
[2021-06-18] MEDS: LORazepam 0.5 MG/1 ML VIAL IV PRN ×2 (09:35→20:59)
--- NOTE | 2021-06-18 09:36 | XRay Report ---
XR chest 1V portable CLINICAL HISTORY: a port placement, ?migration of tip. COMPARISON STUDY: 12/04/2020 TECHNIQUE: 1 view of the chest FINDINGS: Single frontal view of the chest demonstrates the cardiomediastinal silhouette to be within normal li mits. Port-A-Cath is again noted on the right with no change in the position of the tip of the cathet er within the distal SVC. The lungs are clear of alveolar opacities. There is no evidence for pleural effusion. There is no evidence for vascular congestion. There is no acute osseous pathology. IMPRESSION: No acute cardiopulmonary disease. No change in position of port. ACT 112: Negative or not required by law. Electronically signed by: Aldo Merino M.D. 06/18/2021 9:35 AM
--- NOTE | 2021-06-18 09:50 | Hospitalist Progress Note ---
Date of Service June 18, 2021 Assessment & Plan (1) Abdominal pain: Plan: Acute/chronic. CT a/p on 06/13/21 - no acute findings; no intussusception. Repeat CT 06/16 with mild mucosal thickening of small bowel loops but otherwise unremarkable. acute pain - gastritis? non-GI cause? intestinal spasm? other? remains on dilaudid for the acute pain -patient to self wean over the next 24 hours will be discharged tomorrow off of opiates. using IV ppi in raquel of oral PPI. bentyl prn. Pepcid IV. Gi has seen - no new recs. chronic pain - has seen pain management at [facility] -- recommendations: Pristiq, naltrexone, Amitiza, BuSpar, vit C, tumeric, TCA. apparently she has been reluctant to try some of these. (2) Intussusception: Plan: H/o recurrent episodes, only 1 of which led to hospitalization. No evidence of such on admission CT. She has benign abdomen on exam once again today. Monitor carefully. Cont clears; advance as desired by patient. we are venting her G-tube with guardado bag to gravity to help w/ nausea. ativan or zofran prn nausea. (3) Gastrostomy tube in place: Plan: No issues with her G-tube at this time. J-portion removed about 2 weeks ago in [place]. (4) SMAS (superior mesenteric artery syndrome): Plan: s/p surgery years ago. (5) Chronic malnutrition: Plan: At the recommendation of her GI physicians at [facility] she was admitted here for TPN initiation. She has a central a-port for such. "Recipe" for the TPN was devised by the nutritional support team at [facility]. Spoke with pharmacy - we are at the maximum amount of calories/macronutrients that we can provide at [facility]. Current TPN contents are about at 1/2 of the goal TPN amounts advised by [facility]. Further titration will need to be done as outpatient. Previous b12, folate levels were wnl. 25-OH vit D level checked in 2021 was normal (>40). BMP, mag, phos all remain normal. Plan - home once TPN in place at home and patient able to wean off dilaudid. Social work assisting with these arrangements. Pt's mother is aware of plan. (6) On total parenteral nutrition (TPN): Plan: h/o prolonged TPN usage from 2016 to ~2019. Now re-initiating such at recommendation of [facility] GI providers. LFTs, mag, phos, etc all noted to be normal. Appreciate pharmacy assistance with TPN management. Repeat labs in am. (7) Chronic migraine: Plan: No issues at this time. (8) Adrenal insufficiency: Plan: Chronic hydrocortisone usage for such diagnosis -- 15mg qam, 10mg afternoon. Placed back on PO hydrocortisone regimen 06/15. (9) Tachycardia: Plan: resolved Known POTS Plan: Updates patient and her mother at bedside today Diet - continue TPN VTE Prophylaxis - d/c heparin as injection to her abdomen not particularly helpful with her chronic pain and patient at relatively low risk despite malnutrition Disposition - home once able to wean off Dilaudid and TPN set up at home. Plan discharge for tomorrow. Admission and Anticipated Discharge Date Admission Date: June 13, 2021 Subjective Have a better night last night. Still having intermittent pain requiring Dilaudid every 3 hours. Discussed reducing this in an effort to be discharged tomorrow. She demonstrates understanding of this. Discussed nutrition with [place], her mother and the patient at bedside and plan to switch to 18 hour nutrition with a break during the afternoon. Discussed TPN delivery with case management and this can be set up via clean in places operator tomorrow. Review of Systems Review of Systems: All systems reviewed & are unremarkable except as noted in Subjective Physical Exam Constitutional: + thin and + frail appearing; + not well nourished and no acute distress Respiratory: normal respiratory effort Gastrointestinal (Abdomen): Inspection/Auscultation: abdomen not distended Percussion/Palpation: + abdomen tender (generalized) and abdomen soft Skin: no rashes, warm and dry Psychiatric: A+Ox3, euthymic affect Results & Data Results & Data ([facility]) Vital Signs (Past 12 Hours) Vital Signs Temp Pulse Pulse Resp BP BP Pulse Ox 06/18/21 08:03 36.7 C 76 17 90/59 L 98 06/18/21 07:14 91 H 06/18/21 03:11 36.5 C 82 16 95/61 L 98 06/17/21 22:51 36.7 C 76 16 103/67 98 01/31/22 22:30 70 PG Care Time/CCT Total # of Minutes Spent Total Time Spent: 45 Total Time Spent with Patient: Total time spent is greater than 50% in coordination of care (as documented) at patient's floor/unit and/or counseling patient: Coding Level of Care Code 77673 Subseq Hosp Care Lvl 2 Diagnoses Abdominal pain R10.9 Intussusception K56.[address] Z93.1 SMAS (superior mesenteric artery syndrome) K55.1 Chronic malnutrition E46 On total parenteral nutrition (TPN) Z78.9 Chronic migraine G43.709 Adrenal insufficiency E27.40 Tachycardia R00.0
--- NOTE | 2021-06-18 13:25 | Pharmacy Report ---
PHA: Parenteral Nutrition Con - Date of Service June 18, 2021 - Scope Pharmacy was consulted on 06/13/2021 to manage parenteral nutrition orders for this patient. - Subjective The patient is currently on day #6 of central parenteral nutrition for history of chronic PN. - Objective Height: 5 ft 6 in Weight: 45.8 kg Diet: Clear Liquid Intake & Output (24hrs):: Intake & Output 06/16/21 06/17/21 06/18/21 06/19/21 06:59 06:59 06:59 06:59 Intake Total 2245.5 / 2245.5 2474.684 / 2474.684 2556 / 2556 1331.670 / 1331.670 Output Total 2501 / 2501 500 / 500 1800 / 1800 Balance -255.5 / -255.5 1974.684 / 1974.684 756 / 756 1331.670 / 1331.670 Weight 45.2 kg 45 kg 45.8 kg 45.8 kg Laboratory Data (Last 24 Hr):: 06/18/21 07:22 Sodium 139 Potassium 3.7 Chloride 107 Carbon Dioxide 27 BUN 19 Creatinine 0.56 L Glucose 97 Calcium 8.3 L Phosphorus 3.7 Magnesium 1.9 Albumin 3.6 Nutrition Assessment:: Please refer to the Notes section of the EMR for the most recent wind tunnel technician note. - Assessment 06/18: * Patient is on Day #6 of TPN. It was restarted per GI physicians at [facility]. [facility] Nutrition Support Team provided us with recommendations for TPN. * Given premixed PN use at [facility], macronutrients were adjusted and determined that goal rate should be 50 mL/hr. Patient has been at this goal rate since day #2. Further TPN titrations will need done as an outpatient. * Today it was determined that patient would trial a cyclic TPN to prevent hypoglycemia. Nutrition team spoke with patient, family and GI service. They prefer to run an 18 hr cyclic infusion with a 1-hr taper on and off. TPN will start at 1600 daily and end at 1000 the following morning. - Plan For day #6 of TPN administration, the following will be ordered: Macronutrients Amino acids 96 grams/day Dextrose 168 grams/day Lipids 50 grams/day Micronutrients Combined electrolytes 40 mL - contains 35 mEq Na, 20 meq K, 4.5 mEq Ca, 5 mEq Mg, 35 mEq Cl, 29.5 mEq acetate per 20 mL Sodium acetate 60 mEq Potassium phosphate 15 mMol Potassium chloride 20 mEq Potassium acetate 20 mEq Magnesium sulfate 4.06 mEq Calcium gluconate 9.3 mEq Thiamine 100 mg Total volume 1317 mL to be infused over 18 hrs will provide 1455 kcal/day Tapered rates: * [id number] rate: 38.74 mL/hr * [id number] rate: 77.47 mL/hr * [id number] rate: 38.74 mL/hr Labs, as indicated, will be ordered per protocol Pharmacy will continue to follow and adjust parenteral nutrition orders on a daily basis. Thank you for allowing us to participate in the care of this patient.
[2021-06-18] MEDS ORDERED: CLINOLIPID 20% IV FAT EMULSION 250 ML IV SCH (16:00)
[2021-06-18] MEDS ORDERED: CENTRAL TPN IV SCH ×2 (16:00)
[2021-06-18] MEDS ORDERED: [UNRECOGNIZED DRUG - OTHER] IV SCH ×2 (16:00)
[2021-06-18] MEDS ORDERED: AMINO ACID 8% IV SCH ×2 (16:00)
[2021-06-18] MEDS: FEXOFENADINE HCL 180 MG TAB PO SCH (20:54)
[2021-06-18] MEDS: VITAMIN B COMPLEX TAB PO SCH (20:54)
[2021-06-18] MEDS: MULTIVITAMIN PO SCH (20:54)
[2021-06-19] MEDS: HYDROmorphone INJ 0.5 MG/0.5 ML SYR IV PRN ×4 (03:57→13:55)
[2021-06-19] MEDS: SODIUM CHLORIDE 0.9% 1000ML 1,000 ML IV SCH (03:57)
[2021-06-19] MEDS: ONDANSETRON INJ 2 MG/ML 2 ML VIAL IV PRN ×2 (03:57→09:50)
[2021-06-19 06:42] LABS: Albumin Level 3.7 gm/dl (3.4-5.0); BUN Creatinine Ratio 41.5 (10-20); Calcium 8.4 mg/dl (8.5-10.1); Creatinine Clr Calc Pharmacy 113.2 ml/min; Est GFR (African American) 148.7 ml/min; Est GFR (Non-African American) 128.3 ml/min; Phosphorus 3.7 mg/dl (2.5-4.9); Potassium 3.8 mmol/L (3.5-5.1)
[2021-06-19] MEDS: FAMOTIDINE 20 MG in SYRINGE 3 ML IV SCH (07:40)
--- NOTE | 2021-06-19 08:38 | Gastroenterology Progress Note ---
Date of Service June 19, 2021 Assessment & Plan (1) Chronic malnutrition: Plan: Chronic abdominal pain, multifactorial - Abdominal pain continues to wax and wane in intensity. CT a/p 06/17/2021 nonspecific small bowel thickening but no intussusception. - h/o intussusception, will need to closely monitor. - Continue clear liquids as patient tolerates - Venting G tube PRN - Patient has been evaluated previously by the pain management team at [facility] with recommendations (per patient report) focusing on nerve pain with regimen to include Pristiq, naltrexone, Amitiza, buspirone, vitamin C, turmeric, kale with all of oil, TCA. I have requested that most recent records including pain management, GI, and surgery be obtained from [facility]. Narcotics managed by primary care team - Discussed barriers for discharge today and patient identifies abdominal pain as her only barrier at present. She is agreeable to a pain management consult which I have placed this morning. Appreciate consult and recommendations. Intestinal dysmotility - Narcotics are discouraged for long-term management of chronic pain with intestinal dysmotility. Appreciate pain management recs. Chronic malnutrition - Continue titration per nutrition and coordination with home care - Transitioned to 18 hour TPN infusion yesterday while inpatient. Patient tolerated well with no hypoglycemia episodes and no worsening of nausea. - TPN has been delivered to home by [employer]. Home nursing appointment this afternoon for infusion management. IV zofran to be managed by PCP. - [facility] clinical speed operator, Mary Smart, made aware of current tpn orders and anticipated discharge today. Follow-up appointment tentatively 07/03/2021 with nutrition. Please refer to supervising physician addendum for further recommendations. (2) On total parenteral nutrition (TPN): Plan: see above (3) Gastrostomy tube in place: Plan: see above Admission and Anticipated Discharge Date Admission Date: June 13, 2021 Supervising Physician Co-Signing Physician Notes I have seen and examined the patient. I agree with note above by YULISSA Lee except as noted below. HPI Pt tolerating TPN without blood sugar issues. PE Abdomen pos bs, soft no guarding nor rebound A/P malnutrtion--continue TPN chronic abd pain---per pain management at [facility] Pt being DCed today. Subjective Patient awake, alert, and oriented this morning. Reports abdominal pain waxing and waning in intensity. Intermittent nausea, improved with nausea medication. PCP is agreeable to IV Zofran for home use and infusion company can provide. Denies vomiting. Patient was transitioned from 24 hour TPN infusion to 18 hour infusion yesterday. No episodes of hypoglycemia. No worsening of nausea or abdominal pain. Ileostomy drainage to guardado bag - good output this morning, decreased oral intake and still on clear liquid diet. Review of Systems Review of Systems: All systems reviewed & are unremarkable except as noted in Subjective Physical Exam Constitutional: WD/WN, vitals as above Respiratory: normal respiratory effort, lungs clear to auscultation Cardiovascular: RRR, no murmur, no edema Gastrointestinal (Abdomen): Inspection/Auscultation: abdomen normal to i nspection and normal bowel sounds; abdomen not distended Percussion/Palpation: + abdomen tender and abdomen soft; no guarding and abdomen not rigid Psychiatric: A+Ox3, euthymic affect Results & Data ([facility]) Vital Signs (Past 12 Hours) Vital Signs Temp Pulse Resp BP Pulse Ox 06/19/21 07:25 37 C 98 H 16 93/57 L 97 06/18/21 21:04 37.1 C 82 14 99/66 L 99 Laboratory Results Laboratory Results - last 24 hr 06/18/21 06/18/21 06/19/21 11:30 16:43 00:09 Sodium Potassium Chloride Carbon Dioxide Anion Gap BUN Creatinine Est Cr Clr Drug Dosing Est GFR ( Amer) Est GFR (Non-Af Amer) BUN/Creatinine Ratio Glucose POC Glucose 97 109 H 105 H Calcium Phosphorus Magnesium Albumin 06/19/21 05:26 Sodium 141 Potassium 3.8 Chloride 107 Carbon Dioxide 30 Anion Gap 4 BUN 22 Creatinine 0.53 L Est Cr Clr Drug Dosing 113.2 Est GFR ( Amer) 148.7 Est GFR (Non-Af Amer) 128.3 BUN/Creatinine Ratio 41.5 H Glucose 103 H POC Glucose Calcium 8.4 L Phosphorus 3.7 Magnesium 2.0 Albumin 3.7 Diagnostic Findings Chest X-Ray 06/18/21 08:44 XR chest 1V portable CLINICAL HISTORY: a port placement, ?migration of tip. COMPARISON STUDY: 12/04/2020 TECHNIQUE: 1 view of the chest FINDINGS: Single frontal view of the chest demonstrates the cardiomediastinal silhouette to be within normal limits. Port-A-Cath is again noted on the right with no change in the position of the tip of the catheter within the distal SVC. The lungs are clear of alveolar opacities. There is no evidence for pleural effusion. There is no evidence for vascular congestion. There is no acute osseous pathology. IMPRESSION: No acute cardiopulmonary disease. No change in position of port. ACT 112: Negative or not required by law. Electronically signed by: Aldo Merino M.D. 06/18/2021 9:35 AM
[2021-06-19] MEDS: HEPARIN 100 UNIT/ML 5ML FLUSH FLUSH PRN (09:50)
[2021-06-19] MEDS: FLUDROCORTISONE ACETATE 0.1 MG TAB PO SCH (09:55)
[2021-06-19] MEDS: PANTOprazole 40 MG TAB PO SCH (09:55)
[2021-06-19] MEDS: HYDROCORTISONE 10 MG TAB PO SCH (09:57)
[2021-06-19] MEDS: GABAPENTIN 250 MG/5 ML 470 ML BTL PO SCH ×2 (09:58→14:12)
--- NOTE | 2021-06-19 14:11 | Discharge Summary ---
Date of Service June 19, 2021 Admission HPI Per Admitting Provider Ms. Garcia is a 31yo female with PMH significant for chronic GI motility dysfunction, SMA syndrome s/p surgery, prior use of chronic TPN ([id number]), h/o G-J tube placement, adrenal insufficiency, several episodes of intussusception (last episode 11/05 requiring admission at the [facility]) and numerous hospital admissions for nausea/vomiting. She also had ileostomy creation at the [facility] in August 2020. She presents today with abdominal pain as well as to initiate TPN as recommended by her GI physicians at the [facility]. About 2 weeks ago she was seen in the GI office at [facility]. Due to ongoing issues with recurrent intussusception it was recommended that the J portion of her G-J tube be removed. The J tube was indeed removed. This was done as an outpatient. During that same visit it was advised that she resume TPN use for nutrition. At this time she is NOT using the G-tube for enteral feedings. She does continue to try and eat/drink orally. Her last PO intake was yesterday (soup, crackers). Ultimately Pilar was referred to the Nutritional Support Team at [facility] who devised a TPN recipe for her. Attempts were made to start the TPN as an outpatient but were unsuccessful. Thus, she is here to begin the TPN. In addition to the above, the patient awoke with central abdominal pain under her G-tube at 4am. The pain has been coming/going. This has been associated with dry heaves. She has noted a drop-off in her ileostomy output. She typically empties the bag 4-5 times in a 24 hour period. Denies any fevers. Of note - Pilar mentions that the [facility] has been discussing a possible bowel transplant. Nothing is firm at this time regarding such. Finally the patient has a cast on her right forearm since 04/2021. She had been seen by orthopedics in [place] for this issue She states that she has a dislocation of the right wrist along with tendon issues. Patient continues on chronic steroids - hydrocortisone 15mg am; 10mg afternoon - for adrenal insufficiency. Principal Diagnosis Acute on chronic abdominal pain Initiation of TPN Discharge Exam Constitutional + thin and + frail appearing; + not well nourished and no acute distress Respiratory normal respiratory effort Gastrointestinal (Abdomen) Inspection/Auscultation: abdomen not distended Percussion/Palpation: + abdomen tender (generalized) and abdomen soft Skin no rashes, warm and dry Psychiatric A+Ox3, euthymic affect Discharge Data Allergies Allergy/AdvReac Type Severity Reaction Status Date / Time amoxicillin Allergy Intermediate RASH Verified 06/13/21 10:06 cefazolin Allergy Intermediate rash Verified 06/13/21 10:06 Cephalosporins Allergy Intermediate HIVES Verified 06/13/21 10:06 clavulanic acid Allergy Intermediate HIVES Verified 06/13/21 10:06 iron [From Venofer] Allergy Intermediate Muscle Pain Verified 06/13/21 10:06 Penicillins Allergy Intermediate HIVES Verified 06/13/21 10:06 prochlorperazine Allergy Intermediate HIVES Verified 06/13/21 10:06 promethazine Allergy Intermediate hives, Verified 06/13/21 10:06 throat swelling sulfamethoxazole Allergy Intermediate RASH Verified 06/13/21 10:06 sumatriptan Allergy Intermediate RASH Verified 06/13/21 10:06 trimethoprim Allergy Intermediate RASH Verified 06/13/21 10:06 metoclopramide AdvReac Severe anxiety/ Verified 06/13/21 10:06 jittery diphenhydramine AdvReac Intermediate Tachycardia, Verified 06/13/21 10:06 Severe Anxiety WITH IV ONLY erythromycin base AdvReac Intermediate GI SYMPTOMS Verified 06/13/21 10:06 citalopram [From Celexa] AdvReac Unknown CAN'T Verified 06/13/21 10:06 REMEMBER MULTIVITAMIN Allergy Intermediate SEE COMMENT Uncoded 06/13/21 10:06 Consultations 06/14/21 08:26 Consult Gastroenterology Routine 06/17/21 09:38 Consult Health Information Management Routine 06/19/21 08:34 Consult Pain Management Routine Ordered Studies 06/13/21 10:30 CT abd pelvis IV con only Stat IMPRESSION: No acute process is seen. Postsurgical changes are again noted within the bowel. No evidence of bowel obstruction. 06/16/21 23:16 CT abd pelvis IV con only Urgent IMPRESSION: 1. Right lower quadrant ileostomy with no evidence for bowel loop dilatation or obstruction. However, there is mild mucosal thickening of small bowel loops which can be seen with gastroenteritis. 2. Gastrostomy tube is also in place. 3. No other evidence for acute intra-abdominal pelvic abnormality. 4. Additional nonacute findings as delineated above. Hospital Course (1) Abdominal pain: (2) Intussusception: (3) Gastrostomy tube in place: (4) SMAS (superior mesenteric artery syndrome): (5) Chronic malnutrition: (6) On total parenteral nutrition (TPN): (7) Chronic migraine: (8) Adrenal insufficiency: (9) Tachycardia: Pilar Saunders is a 31 year old female admitted to [facility] from June 13 to June 19 2021 due to acute on chronic abdominal pain. She has known motility disorder. Plan enacted per outpatient providers and per advice from her inspector golf ball she was started on TPN. No acute findings found on x2 CT scans. She will continue on 18 hour TPN as directe d by her order checker packer processer. Continue to follow up with you motility and pain specialists at the [facility]. Total Time Total Time Spent Total Time Spent (In Minutes): 35 Discharge Plan Discharge Items Patient Disposition: Home - Home Health Services Reason For Visit: ABDOMINAL PAIN, INITIATION OF TPN Discharge Diagnosis: Acute on chronic abdominal pain Initiation of TPN Activity: Resume your previous activity Non-emergency contact: Primary Care Provider and Specialist Call non-emergency contact if: you have any medication questions and your symptoms worsen Follow-up/Referrals: Mariama Pearson DO [Physician] - Mariah Addison DO [Primary Care Provider] - 06/27/21 10:50 am Diet: Clear liquid Addtl Attending Provider Instructions: Please continue on 18 hour TPN as directed by your order checker packer processer. Continue to follow up with you motility and pain specialists at the [facility]. Kind regards, Dr Praneeth Romero Pending Studies at Discharge: No Stand-Alone Forms: My [facility], Smoking Cessation Medications and DC Order Prescriptions: Continued famotidine 40 mg tablet 20 mg PO BID RF: 0 ondansetron 4 mg tablet,disintegrating 4 mg translingual Q6H PRN (Reason: Nausea) RF: 0 hydrocortisone 10 mg tablet 10 - 15 mg PO BID RF: 0 trimethobenzamide 300 mg Capsule 300 mg PO Q6H PRN (Reason: Nausea And Vomiting) RF: 0 hyoscyamine sulfate [Levsin/SL] 0.125 mg Tablet, Sublingual 0.125 mg SUBLINGUAL Q4H PRN (Reason: Abdominal Cramping) RF: 0 dicyclomine 10 mg Capsule 10 - 20 mg PO Q6H PRN (Reason: Abdominal Pain) RF: 0 pantoprazole [Protonix] 40 mg tablet,delayed release (DR/EC) 40 mg PO QAM RF: 0 lorazepam [Ativan] 2 mg/mL Solution 0.5 mg buccal Q6H PRN (Reason: Nausea) RF: 0 gabapentin 250 mg/5 mL solution 300 mg PO TID RF: 0 fexofenadine 180 mg Tablet 180 mg PO PM RF: 0 fludrocortisone 0.1 mg tablet 0.1 - 0.2 mg PO AMPM RF: 0 tramadol 50 mg tablet 50 mg PO BID PRN (Reason: Pain) RF: 0 acetaminophen [Tylenol Extra Strength] 500 mg Tablet 1,000 mg PO Q6H PRN (Reason: Pain) RF: 0 ascorbic acid (vitamin C) [Vitamin C] 500 mg Tablet,Chewable 0 mg PO PM RF: 0 vitamin B complex Tablet 1 tab PO PM RF: 0 coenzyme Q10 [CoQ-10] 100 mg Capsule 0 mg PO PM RF: 0 Multivitamin Gummies 200 mcg Tablet,Chewable 2 tab PO PM RF: 0 turmeric 400 mg Capsule 0 mg PO PM RF: 0 Discharge Orders: Discharge Order (Routine); Ordered 06/19/21 Ordered By: Praneeth Romero Admission Data Admit Date/Time: 06/13/21 10:32 Attending Provider: Praneeth Romero Admit Provider: Anastacia Harrison Primary Care Provider: Mariah Addison Other Providers: Praneeth Liu Brian D. ; Mariama Pearson Other Interventions: Discharge Summary Assessment (RN) Last Done: 06/19/21 15:08 Coding Level of Care Code D/C DAY MANAGEMENT >30 MINS Diagnoses Abdominal pain R10.9 Intussusception K56.[address] Z93.1 SMAS (superior mesenteric artery syndrome) K55.1 Chronic malnutrition E46 On total parenteral nutrition (TPN) Z78.9 Chronic migraine G43.709 Adrenal insufficiency E27.40 Tachycardia R00.0 Home Health Attestation I certify that this patient is under my care and that I, or a physicians assistant general manager working with me, had a face to-face encounter that meets the home health [id number] encounter requirements with this patient. The encounter with the patient was in whole, or in part, for the following medical condition, which is the primary reason for home health care (list medical condition): I certify that, based on my findings, the following services are medically necessary home health services: My clinical findings support the need for the above services because: Further, I certify that my clinical findings support that this patient is homebound (i.e. absences from home require considerable and taxing effort and are for medical reasons or [facility]aritan services or infrequently or of short duration when for other reasons) because: Certification for Home Health Services: Based on the above findings, I certify that this patient is confined to the home and needs intermittent intermediate care, physical therapy and/or speech therapy or continues to need occupational therapy. The patient is under my care, and I have initiated the establishment of the plan of care. This patient will be followed by a physician who will periodically review the plan of care.
--- NOTE | 2021-06-20 16:04 | Pain Management Consultation ---
Date of Consultation June 20, 2021 History of Present Illness Attending Physician: Praneeth Romero MD History of Present Illness patient was discharged prior to being seen Allergies Allergy/AdvReac Type Severity Reaction Status Date / Time amoxicillin Allergy Intermediate RASH Verified 06/13/21 10:06 cefazolin Allergy Intermediate rash Verified 06/13/21 10:06 Cephalosporins Allergy Intermediate HIVES Verified 06/13/21 10:06 clavulanic acid Allergy Intermediate HIVES Verified 06/13/21 10:06 iron [From Venofer] Allergy Intermediate Muscle Pain Verified 06/13/21 10:06 Penicillins Allergy Intermediate HIVES Verified 06/13/21 10:06 prochlorperazine Allergy Intermediate HIVES Verified 06/13/21 10:06 promethazine Allergy Intermediate hives, Verified 06/13/21 10:06 throat swelling sulfamethoxazole Allergy Intermediate RASH Verified 06/13/21 10:06 sumatriptan Allergy Intermediate RASH Verified 06/13/21 10:06 trimethoprim Allergy Intermediate RASH Verified 06/13/21 10:06 metoclopramide AdvReac Severe anxiety/ Verified 06/13/21 10:06 jittery diphenhydramine AdvReac Intermediate Tachycardia, Verified 06/13/21 10:06 Severe Anxiety WITH IV ONLY erythromycin base AdvReac Intermediate GI SYMPTOMS Verified 06/13/21 10:06 citalopram [From Celexa] AdvReac Unknown CAN'T Verified 06/13/21 10:06 REMEMBER MULTIVITAMIN Allergy Intermediate SEE COMMENT Uncoded 06/13/21 10:06 Home Medications Medication Instructions Recorded Confirmed Type dicyclomine 10 mg capsule 10 - 20 mg PO Q6H PRN 03/07/18 06/13/21 History hyoscyamine sulfate 0.125 mg 0.125 mg SUBLINGUAL Q4H PRN 03/07/18 06/13/21 History sublingual tablet (Levsin/SL) pantoprazole 40 mg tablet,delayed 40 mg PO QAM 09/08/19 06/13/21 History release (Protonix) famotidine 40 mg tablet 20 mg PO BID 11/28/19 06/13/21 History lorazepam 2 mg/mL injection 0.5 mg BUCCAL Q6H PRN 12/05/19 06/13/21 History solution (Ativan) hydrocortisone 10 mg tablet 10 - 15 mg PO BID 02/07/20 06/13/21 History ondansetron 4 mg disintegrating 4 mg TRANSLINGUAL Q6H PRN 02/07/20 06/13/21 History tablet trimethobenzamide 300 mg capsule 300 mg PO Q6H PRN 02/07/20 06/13/21 History fexofenadine 180 mg tablet 180 mg PO PM 10/09/20 06/13/21 History gabapentin 250 mg/5 mL oral 300 mg PO TID 10/09/20 06/13/21 History solution fludrocortisone 0.1 mg tablet 0.1 - 0.2 mg PO AMPM 12/12/20 06/13/21 History tramadol 50 mg tablet 50 mg PO BID PRN 04/15/21 06/13/21 History acetaminophen 500 mg tablet 1,000 mg PO Q6H PRN 06/13/21 06/13/21 History (Tylenol Extra Strength) ascorbic acid (vitamin C) 500 mg 0 mg PO PM 06/13/21 06/13/21 History chewable tablet (Vitamin C) coenzyme Q10 100 mg capsule 0 mg PO PM 06/13/21 06/13/21 History (CoQ-10) multivitamin with minerals-folic 2 tab PO PM 06/13/21 06/13/21 History acid 200 mcg chewable tablet (Multivitamin Gummies) turmeric 400 mg capsule 0 mg PO PM 06/13/21 06/13/21 History vitamin B complex 1 tab PO PM 06/13/21 06/13/21 History Patient History Medical History (Updated 06/17/21 @ 18:51 by Praneeth Romero MD) Asthma Chronic migraine Endometriosis has had 3 surgeries for this. Last surgery [address] Hemorrhagic cystitis Hypotension Intussusception PICC (peripherally inserted central catheter) in place TPN SMAS (superior mesenteric artery syndrome) Sphincter of Oddi dysfunction DECREASED GI MOTILITY Uses feeding tube gastroparesis and decreased GI motility can not tolerate feeding and uses TPN UTI (urinary tract infection) Surgical History H/O adenoidectomy H/O laparoscopy H/O lumpectomy right breast 2011 History of appendectomy History of bowel resection Part of duodenum removed due to necrosis; done at [facility] 2019 History of hysterectomy 5/12/20 History of removal of Port-a-Cath 10/13/[address] Geiger, [facility], due to bacteremia/sepsis. History of vascular access device 2017 Hx of colonoscopy during procedure perforated small bowel 10/27/2019 at [facility], subsequent repair of duodenal area. Hx of ileostomy Hx of tonsillectomy S/P cholecystectomy 2015 S/P wrist surgery right Family History Father Hyperlipidemia Other No significant family history Social History Smoking Status: Never smoker Second Hand Exposure: No; Hx Alcohol Use: No Hx Substance Use: No Preferred Language: Sami Communication Ability: Effective Visual Impairment: No Limitations Hearing Ability: Normal Team Lead Required: No Beliefs That Will Affect Care: None marital status: single Current Living Situation: Parent Current Living Situation Comment: Lives with family. current occupational status: unemployed Feels Safe at Home: Yes Assistive Devices: None
== END 2021-06-19 15:41 | disposition home health service (06) | DRG 391 ==
LOC: ED 09:01 → SUATTDRO 10:32 → 2N 10:32 → EDINP 10:32 → 2N 17:27 → 3E 06-18 20:51

== ENCOUNTER 2021-10-30 13:47 | Inpatient (IN) ==
[2021-10-30] MEDS ORDERED: ONDANSETRON INJ 2 MG/ML 2 ML VIAL IV STA ×3 (14:41→17:18)
[2021-10-30] MEDS ORDERED: SODIUM CHLORIDE 0.9% 1000ML 1,000 ML IV STA (15:14)
--- NOTE | 2021-10-30 15:16 | Emergency Department Note ---
Impression & Plan Abdominal pain, chronic, generalized, Colitis ED Provider Note NAME: CHRIS TALBOT AGE: 31 SEX: F : 1990 ARRIVES VIA: Walk-In INFORMANT: Patient, the patient's mother ED PROVIDER(S): Fausto Chapin DO CHIEF COMPLAINT: Abdominal pain HPI: The patient is a 31-year-old female who is a history of chronic abdominal pain and intussusception who presented to the emergency department for an evaluation of abdominal pain. The patient states she had an acute onset of severe abdominal pain nausea and vomiting earlier today. She is been trying her outpatient medications without relief. She presented with her mother. She has had chronic GI issues in the past. She is plugged in locally with our GI group but ultimately is scheduled for a small intestine transplant at [facility]. She states she still going through some hurdles to be cleared for this but ultimately would like to pursue this avenue. She denies having any chest pain or back pain. She said no dysuria or frequency. She states her pain is mo derate to severe. ROS: See above HPI for pertinent positives & negatives. A total of 10 systems reviewed and were otherwise negative. PAST MEDICAL HISTORY: See Below PAST SURGICAL HISTORY: See Below FAMILY HISTORY: See Below SOCIAL HISTORY: See Below HOME MEDICATIONS: See Below ALLERGIES: See Below VITALS: See Below PHYSICAL EXAMINATION: GENERAL: The patient is awake and alert. She is in severe pain. She is in the position actively retching. EYES: The conjunctivae are clear. The pupils are round and reactive. EARS, NOSE, MOUTH AND THROAT: The nose is without any evidence of any deformity. NECK: The neck is nontender and supple. RESPIRATORY: Normal respiratory effort is noted there is no evidence of wheezing rhonchi or rales CARDIOVASCULAR: Regular rate and rhythm noted there no murmurs rubs or gallops normal S1 normal S2. GASTROINTESTINAL: The abdomen is soft and nondistended. There is diffuse tenderness to palpation but no guarding rigidity. MUSCULOSKELETAL/EXTREMITIES: There is no evidence of gross deformity full range of motion is noted in the hips and shoulders. SKIN: There is no obvious evidence of any rash. There are no petechiae, pallor or cyanosis noted. NEUROLOGIC: Patient is awake alert and oriented x3 MEDICAL DECISION MAKING: The patient is a 31-year-old female who presented to the emergency department for an evaluation of abdominal pain. She has a history of chronic intussuscep tion. The patient was treated with IV fluids and IV pain medication in the emergency department. She was also treated with IV antiemetics. She was reevaluated multiple times. She is had multiple CAT scans of her abdomen pelvis so this initially was avoided because of an elevated white blood cell count as well as ongoing pain CT of the abdomen and pelvis was obtained. I discussed the patient's laboratory and radiographic studies with her and her family member. Because of ongoing pain I discussed her case with the on-call [facility] hospitalist group. Triage Nursing notes reviewed. Prior medical records reviewed Vital Signs: reviewed and remarkable for tachycardia Differential diagnosis: Etiologies such as appendicitis, diverticulitis, obstruction, inflammatory bowel disease, renal colic, PUD, biliary pathology, pancreatitis, mesenteric ischemia, aortic pathology, infections, genitourinary, UTI, perforated viscus, as well as others were entertained. ER treatment provided: See below Diagnostics interpreted by me: ECG: none Cardiac Monitoring: An order was placed for continuous cardiac monitoring. The monitor shows a rate of 115 bpm with sinus tachycardia Laboratory studies: As stated above and show below. Imaging studies: See below Consultation(s): I discussed this case with Dr. Sharma Past Med/Surg History Medical History Asthma Chronic migraine Endometriosis has had 3 surgeries for this. Last surgery [address] Hemorrhagic cystitis Hypotension Intussusception PICC (peripherally inserted central catheter) in place TPN SMAS (superior mesenteric artery syndrome) Sphincter of Oddi dysfunction DECREASED GI MOTILITY Uses feeding tube gastroparesis and decreased GI motility can not tolerate feeding and uses TPN UTI (urinary tract infection) Surgical History H/O adenoidectomy H/O laparoscopy H/O lumpectomy right breast 2011 History of appendectomy History of bowel resection Part of duodenum removed due to necrosis; done at [facility] 2019 History of hysterectomy 09/27/19 History of removal of Port-a-Cath 10/13/[address] Geiger, [facility], due to bacteremia/sepsis. History of vascular access device 2017 Hx of colonoscopy during procedure perforated small bowel 10/27/2019 at [facility], subsequent repair of duodenal area. Hx of ileostomy Hx of tonsillectomy S/P cholecystectomy 2015 S/P wrist surgery right Family History Father Hyperlipidemia Other No significant family history Social History Smoking Status: Never smoker Second Hand Exposure: No; Hx Alcohol Use: No Hx Substance Use: No Preferred Language: Irish Communication Ability: Effective Visual Impairment: No Limitations Hearing Ability: Normal Fixed Wing Pilot Required: No Beliefs That Will Affect Care: None marital status: single Current Living Situation: Parent Current Living Situation Comment: Lives with family. current occupational status: unemployed Feels Safe at Home: Yes Assistive Devices: None Allergies Allergies Allergy/AdvReac Type Severity Reaction Status Date / Time amoxicillin Allergy Intermediate RASH Verified 10/30/21 18:14 cefazolin Allergy Intermediate rash Verified 10/30/21 18:14 Cephalosporins Allergy Intermediate HIVES Verified 10/30/21 18:14 clavulanic acid Allergy Intermediate HIVES Verified 10/30/21 18:14 iron [From Venofer] Allergy Intermediate Muscle Pain Verified 10/30/21 18:14 Penicillins Allergy Intermediate HIVES Verified 10/30/21 18:14 prochlorperazine Allergy Intermediate HIVES Verified 10/30/21 18:14 promethazine Allergy Intermediate hives, Verified 10/30/21 18:14 throat swelling sulfamethoxazole Allergy Intermediate RASH Verified 10/30/21 18:14 sumatriptan Allergy Intermediate RASH Verified 10/30/21 18:14 trimethoprim Allergy Intermediate RASH Verified 10/30/21 18:14 metoclopramide AdvReac Severe anxiety/ Verified 10/30/21 18:14 jittery diphenhydramine AdvReac Intermediate Tachycardia, Verified 10/30/21 18:14 Severe Anxiety WITH IV ONLY erythromycin base AdvReac Intermediate GI SYMPTOMS Verified 10/30/21 18:14 citalopram [From Celexa] AdvReac Unknown CAN'T Verified 10/30/21 18:14 REMEMBER MULTIVITAMIN Allergy Intermediate SEE COMMENT Uncoded 10/30/21 18:14 Home Meds Home Medications Medication Instructions Recorded Confirmed dicyclomine 10 mg capsule 10 - 20 mg PO Q6H PRN 03/07/18 10/30/21 hyoscyamine sulfate 0.125 mg 0.125 mg SUBLINGUAL Q4H PRN 03/07/18 10/30/21 sublingual tablet (Levsin/SL) pantoprazole 40 mg tablet,delayed 40 mg PO QAM 09/08/19 10/30/21 release (Protonix) famotidine 40 mg tablet 20 mg PO BID 11/28/19 10/30/21 lorazepam 2 mg/mL injection 0.5 mg BUCCAL QID PRN 12/05/19 10/30/21 solution (Ativan) hydrocortisone 10 mg tablet 10 - 15 mg PO BID 02/07/20 10/30/21 ondansetron 4 mg disintegrating 4 mg TRANSLINGUAL Q6H PRN 02/07/20 10/30/21 tablet trimethobenzamide 300 mg capsule 300 mg PO Q6H PRN 02/07/20 10/30/21 fexofenadine 180 mg tablet 180 mg PO PM 10/09/20 10/30/21 gabapentin 250 mg/5 mL oral 300 mg PO TID 10/09/20 10/30/21 solution fludrocortisone 0.1 mg tablet 0.1 - 0.2 mg PO UD 12/12/20 10/30/21 tramadol 50 mg tablet 50 mg PO Q12 PRN 04/15/21 10/30/21 acetaminophen 500 mg tablet 1,000 mg PO Q6H PRN 06/13/21 10/30/21 (Tylenol Extra Strength) ascorbic acid (vitamin C) 500 mg 0 mg PO PM 06/13/21 10/30/21 chewable tablet (Vitamin C) coenzyme Q10 100 mg capsule 0 mg PO PM 06/13/21 10/30/21 (CoQ-10) multivitamin with minerals-folic 2 tab PO PM 06/13/21 10/30/21 acid 200 mcg chewable tablet (Multivitamin Gummies) turmeric 400 mg capsule 0 mg PO PM 06/13/21 10/30/21 vitamin B complex 1 tab PO PM 06/13/21 10/30/21 Results & Data (ED) Vital Signs Vital Signs - 24 hr 10/30/21 13:56 10/30/21 15:45 10/30/21 15:48 Temperature 37.1 C Temperature Source Temporal Artery Scan Pulse Rate 111 H 119 H 111 H Pulse Rhythm Regular Respiratory Rate 18 20 24 Blood Pressure 106/71 Blood Pressure Mean 82 Pulse Oximetry 98 98 Oxygen Delivery Method Room Air Room Air Sepsis Recent Fever Within 48 Hours No Sepsis New/Unexplained Change in Mental Status N/A Sepsis Action Taken by Nursing No Action Required 10/30/21 15:55 10/30/21 16:00 10/30/21 16:09 Temperature Temperature Source Pulse Rate 104 H 101 H 113 H Pulse Rhythm Respiratory Rate 13 15 17 Blood Pressure 96/56 L 90/54 L 95/62 L Blood Pressure Mean 69 66 73 Pulse Oximetry 97 97 95 Oxygen Delivery Method Room Air Room Air Room Air Sepsis Recent Fever Within 48 Hours Sepsis New/Unexplained Change in Mental Status Sepsis Action Taken by Nursing 10/30/21 16:15 10/30/21 16:30 Temperature Temperature Source Pulse Rate 115 H 115 H Pulse Rhythm Respiratory Rate 17 19 Blood Pressure 101/65 Blood Pressure Mean 77 Pulse Oximetry 99 98 Oxygen Delivery Method Room Air Room Air Sepsis Recent Fever Within 48 Hours Sepsis New/Unexplained Change in Mental Status Sepsis Action Taken by [facility] Medications Current Medication List: was personally reviewed by me Laboratory Data Attestation: I reviewed the patient's lab results. Result diagrams: 10/30/21 15:52 10/30/21 15:52 Lab Results 10/30/21 10/30/21 10/30/21 Range/Units 15:52 15:52 17:00 WBC 19.64 H (4.8-10.8) K/uL RBC 3.69 L (4.2-5.4) M/uL Hgb 12.3 (12.0-16.0) g/dL Hct 35.7 L (37-47) % MCV 96.7 (80-100) fL MCH 33.3 (25-34) pg MCHC 34.5 (32-36) g/dL RDW Std Deviation 41.7 (36.4-46.3) fL RDW Coeff of Tim 11.7 (11.5-14.5) % Plt Count 296 (130-400) K/uL MPV 10.6 H (7.4-10.4) fL Immature Gran % (Auto) 0.3 % Neut % (Auto) 83.9 % Lymph % (Auto) 7.7 % [place] % (Auto) 7.3 % Eos % (Auto) 0.6 % Baso % (Auto) 0.2 % Neut # (Auto) 16.50 H (1.4-6.5) K/uL Lymph # (Auto) 1.51 (1.2-3.4) K/uL [place] # (Auto) 1.43 H (0.11-0.59) K/uL Eos # (Auto) 0.11 (0-0.5) K/uL Baso # (Auto) 0.03 (0-0.2) K/uL Immature Gran # (Auto) 0.06 H (0.00-0.02) K/uL Sodium 139 (136-145) mmol/L Potassium 3.4 L (3.5-5.1) mmol/L Chloride 106 (98-107) mmol/L Carbon Dioxide 25 (21-32) mmol/L Anion Gap 8 (3-11) BUN 10 (6-23) mg/dl Creatinine 0.88 (0.6-1.2) mg/dl Est Cr Clr Drug Dosing Not Reportable Est GFR ( Amer) 102.9 ml/min Est GFR (Non-Af Amer) 88.8 ml/min BUN/Creatinine Ratio 11.4 (10-20) Glucose 94 (70-99(Fasting)) mg/dl Calcium 8.6 (8.5-10.1) mg/dl Total Bilirubin 0.4 (0.2-1.0) mg/dl AST 13 (13-39) U/L ALT 8 (7-52) U/L Alkaline Phosphatase 47 (34-104) U/L Total Protein 6.4 (6.0-8.3) gm/dl Albumin 4.2 (3.4-5.0) gm/dl Globulin 2.2 L (2.5-4.0) gm/dl Albumin/Globulin Ratio 1.9 (0.9-2) Lipase 21 (11-82) U/L Urine Color Yellow Urine Appearance Clear (Clear) Urine pH 6.0 (4.5-7.5) Ur Specific [place] 1.008 (1.000-1.030) Urine Protein Negative (Negative) Urine Glucose (UA) Negative (Negative) Urine Ketones Negative (Negative) Urine Blood Negative (Negative) Urine Nitrite Negative (Negative) Urine Bilirubin Negative (Negative) Urine Urobilinogen Negative (Negative) Ur Leukocyte Esterase Negative (Negative) Administered Medications Hydromorphone HCl (Hydromorphone Inj 1 Mg/Ml Syringe) 1 mg IV Q15M PRN PRN Reason: Pain Stop: 11/13/21 15:13 Last Admin: 10/30/21 21:23 Dose: 1 mg Documented by: [id number] Admin: 10/30/21 19:49 Dose: 1 mg Documented by: [id number] Admin: 10/30/21 18:43 Dose: 1 mg Documented by: [id number] Admin: 10/30/21 17:28 Dose: 1 mg Documented by: [id number] Admin: 10/30/21 16:12 Dose: 1 mg Documented by: [id number] Admin: 10/30/21 15:45 Dose: 1 mg Documented by: [id number] Discontinued Medications Sodium Chloride (Nss 1000ml) 1,000 mls @ 999 mls/hr IV .Q1H1M STA Stop: 10/30/21 16:14 Last Infusion: 10/30/21 16:49 Dose: 0 mls/hr Documented by: [id number] Admin: 10/30/21 15:45 Dose: 999 mls/hr Documented by: [id number] Ioversol (Optiray 320 100ml) 95 ml IV ONCE ONE Stop: 10/30/21 19:21 Last Admin: 10/30/21 19:23 Dose: 95 ml Documented by: [id number] Ondansetron HCl (Ondansetron Inj 2 Mg/Ml 2 Ml Vial) 4 mg IV NOW STA Stop: 10/30/21 14:42 Last Admin: 10/30/21 14:50 Dose: 4 mg Documented by: [id number] Ondansetron HCl (Ondansetron Inj 2 Mg/Ml 2 Ml Vial) 4 mg IV NOW STA Stop: 10/30/21 15:15 Last Admin: 10/30/21 17:24 Dose: Not Given Documented by: [id number] Ondansetron HCl (Ondansetron Inj 2 Mg/Ml 2 Ml Vial) 4 mg IV NOW STA Stop: 10/30/21 17:19 Last Admin: 10/30/21 17:24 Dose: 4 mg Documented by: [id number] Imaging Data Radiologist's Impression: Chest X-Ray 10/30/21 15:14 SINGLE VIEW CHEST CLINICAL HISTORY: Vomiting. FINDINGS: An AP, portable, upright chest radiograph is compared to study dated 06/18/2021. A right subclavian central venous infusion port is unchanged in position. The cardiomediastinal silhouette is unremarkable. There is minimal elevation of the right hemidiaphragm. The lungs and pleural spaces are clear. No pneumothorax is seen. The bony thorax is grossly intact. There is mild spinal scoliosis. IMPRESSION: No active disease in the chest. ACT 112: Negative or not required by law. Electronically signed by: Kirk Burgos M.D. 10/30/2021 4:11 PM KUB X-Ray 10/30/21 15:14 KUB CLINICAL HISTORY: Vomiting. FINDINGS: 2 AP supine abdominal radiographs are compared to study dated 03/13/2021 and correlated with abdominal CT dated 06/17/2021. Cholecystectomy clips are seen in the right upper quadrant and surgical clips project over the pelvis. A percutaneous gastrostomy tube is in place. There is no bowel obstruction. An ostomy projects over the right lower quadrant. No evidence of intraperitoneal free air is seen on these supine images. The bony structures appear intact. IMPRESSION: No acute abnormality is identified. Electronically signed by: Kirk Burgos M.D. 10/30/2021 4:13 PM Abdomen/Pelvis CT 10/30/21 18:32 CT OF THE ABDOMEN AND PELVIS WITH CONTRAST CLINICAL HISTORY: Abdominal pain and vomiting. COMPARISON STUDY: KUB performed earlier today. CT of the abdomen and pelvis June 17, 2021. TECHNIQUE: Following IV administration of 95 mL of Optiray, axial images of the abdomen and pelvis were obtained from the lung bases to the proximal femurs. Stephanie ges were reviewed in the axial, sagittal, and coronal planes. IV contrast was administered without complication. Automated exposure control was utilized for the study. A dose lowering technique was utilized adhering to the principles of ALARA. CT DOSE: 252.04 mGy.cm FINDINGS: Lung bases are unremarkable. No pneumatosis, free air or portal venous gas is present. There is no biliary ductal dilatation status post chol ecystectomy. Liver, spleen, adrenal glands and kidneys are unremarkable. There is no hydronephrosis. Gastrostomy tube is in place. As before, the aortomesenteric angle and aortomesenteric distance are diminished. There is only slight dilatation of the duodenum. No convincing evidence for a bowel obs truction. Right lower quadrant ileostomy is present. Note is made of mild wall thickening with adjacent stranding of the distal descending and proximal sigmoid colon. Colon is underdistended. The appendix is not visualized. There is a corpus luteal cyst within the right ovary. Ovaries are not enlarged. No fluid collection to suggest an abscess is present. Major vasculature is patent. No intussusception is identified. Moderate amount stool within the right colon is present. IMPRESSION: 1. Mild wall thickening with adjacent stranding of the descending and proximal sigmoid colon. This favors a mild nonspecific colitis. 2. No bowel obstruction. Right lower quadrant ileostomy. 3. No intussusception. ACT 112: Negative or not required by law. Electronically signed by: Ruperto Lopez M.D. 10/30/2021 7:53 PM Discharge Plan Visit Data Chief Complaint: Abdominal Pain Stated Complaint: intestinal pain ED Provider: Fausto Chapin Discharge Problem: Abdominal pain, chronic, generalized, Colitis Patient Disposition: Being Evaluated by Hospitalist Forms Stand Alone Forms: [facility] Prescriptions Prescriptions: No Action famotidine 40 mg tablet 20 mg PO BID RF: 0 ondansetron 4 mg tablet,disintegrating 4 mg translingual Q6H PRN (Reason: Nausea) RF: 0 hydrocortisone 10 mg tablet 10 - 15 mg PO BID RF: 0 trimethobenzamide 300 mg Capsule 300 mg PO Q6H PRN (Reason: Nausea And Vomiting) RF: 0 hyoscyamine sulfate [Levsin/SL] 0.125 mg Tablet, Sublingual 0.125 mg SUBLINGUAL Q4H PRN (Reason: Abdominal Cramping) RF: 0 dicyclomine 10 mg Capsule 10 - 20 mg PO Q6H PRN (Reason: Abdominal Pain) RF: 0 pantoprazole [Protonix] 40 mg tablet,delayed release (DR/EC) 40 mg PO QAM RF: 0 lorazepam [Ativan] 2 mg/mL Solution 0.5 mg buccal QID PRN (Reason: Nausea) RF: 0 gabapentin 250 mg/5 mL solution 300 mg PO TID RF: 0 fexofenadine 180 mg Tablet 180 mg PO PM RF: 0 fludrocortisone 0.1 mg tablet 0.1 - 0.2 mg PO UD RF: 0 tramadol 50 mg tablet 50 mg PO Q12 PRN (Reason: Pain) RF: 0 acetaminophen [Tylenol Extra Strength] 500 mg Tablet 1,000 mg PO Q6H PRN (Reason: Pain) RF: 0 ascorbic acid (vitamin C) [Vitamin C] 500 mg Tablet,Chewable 0 mg PO PM RF: 0 vitamin B complex Tablet 1 tab PO PM RF: 0 coenzyme Q10 [CoQ-10] 100 mg Capsule 0 mg PO PM RF: 0 Multivitamin Gummies 200 mcg Tablet,Chewable 2 tab PO PM RF: 0 turmeric 400 mg Capsule 0 mg PO PM RF: 0 Referrals Referrals: Mariah Addison DO [Primary Care Provider] -
[2021-10-30] MEDS: HYDROmorphone INJ 1 MG/ML SYRINGE IV PRN ×7 (15:45→22:55)
--- NOTE | 2021-10-30 16:13 | XRay Report ---
SINGLE VIEW CHEST CLINICAL HISTORY: Vomiting. FINDINGS: An AP, portable, upright chest radiograph is compared to study dated 06/18/2021. A right subc lavian central venous infusion port is unchanged in position. The cardiomediastinal silhouette is unr emarkable. There is minimal elevation of the right hemidiaphragm. The lungs and pleural spaces are cl ear. No pneumothorax is seen. The bony thorax is grossly intact. There is mild spinal scoliosis. IMPRESSION: No active disease in the chest. ACT 112: Negative or not required by law. Electronically signed by: Kirk Burgos M.D. 10/30/2021 4:11 PM
--- NOTE | 2021-10-30 16:14 | XRay Report ---
KUB CLINICAL HISTORY: Vomiting. FINDINGS: 2 AP supine abdominal radiographs are compared to study dated 03/13/2021 and correlated wit h abdominal CT dated 06/17/2021. Cholecystectomy clips are seen in the right upper quadrant and surgic al clips project over the pelvis. A percutaneous gastrostomy tube is in place. There is no bowel obst ruction. An ostomy projects over the right lower quadrant. No evidence of intraperitoneal free air is seen on these supine images. The bony structures appear intact. IMPRESSION: No acute abnormality is identified. Electronically signed by: Kirk Burgos M.D. 10/30/2021 4:13 PM
[2021-10-30 16:32] LABS: Alanine Aminotransferase 8 U/L (7-52); Albumin Globulin Ratio 1.9 (0.9-2); Albumin Level 4.2 gm/dl (3.4-5.0); Alkaline Phosphatase 47 U/L (34-104); Anion Gap 8 (3-11); Aspartate Aminotransferase 13 U/L (13-39); BUN Creatinine Ratio 11.4 (10-20); Bilirubin,Total 0.4 mg/dl (0.2-1.0); Blood Urea Nitrogen 10 mg/dl (6-23); Calcium 8.6 mg/dl (8.5-10.1); Carbon Dioxide 25 mmol/L (21-32); Chloride 106 mmol/L (98-107); Est GFR (African American) 102.9 ml/min; Est GFR (Non-African American) 88.8 ml/min; Globulin 2.2 gm/dl (2.5-4.0); Glucose 94 mg/dl (70-99(Fasting)); Lipase 21 U/L (11-82); Potassium 3.4 mmol/L (3.5-5.1); Sodium 139 mmol/L (136-145); Total Protein 6.4 gm/dl (6.0-8.3)
[2021-10-30 17:10] LABS: Basophils # (auto) 0.03 K/uL (0-0.2); Basophils % (auto) 0.2 %; Eosinophils # (auto) 0.11 K/uL (0-0.5); Eosinophils % (auto) 0.6 %; Hematocrit (blood only) 35.7 % (37-47); Hemoglobin 12.3 g/dL (12.0-16.0); Immature Granulocytes # (auto) 0.06 K/uL (0.00-0.02); Immature Granulocytes % (auto) 0.3 %; Lymphocytes # (auto) 1.51 K/uL (1.2-3.4); Lymphocytes % (auto) 7.7 %; Mean Corpuscular Hemoglobin 33.3 pg (25-34); Mean Corpuscular Hgb Conc 34.5 g/dL (32-36); Mean Corpuscular Volume 96.7 fL (80-100); Mean Platelet Volume 10.6 fL (7.4-10.4); Monocytes # (auto) 1.43 K/uL (0.11-0.59); Monocytes % (auto) 7.3 %; Neutrophils % (auto) 83.9 %; Platelet Count 296 K/uL (130-400); RDW Coefficient of Variation 11.7 % (11.5-14.5); RDW Standard Deviation 41.7 fL (36.4-46.3); Red Blood Count 3.69 M/uL (4.2-5.4); White Blood Count 19.64 K/uL (4.8-10.8)
[2021-10-30 17:11] LABS: Appearance Urine Clear (Clear); Bilirubin Urine Negative (Negative); Blood Urine Negative (Negative); Color Urine Yellow; Glucose Urine UA Negative (Negative); Ketones Urine Negative (Negative); Leukocyte Esterase Urine Negative (Negative); Nitrite Urine Negative (Negative); Protein Urine Negative (Negative); Specific Gravity Urine 1.008 (1.000-1.030); Urobilinogen Urine Negative (Negative)
[2021-10-30] MEDS ORDERED: OPTIRAY 320 100ml IV ONE (19:20)
--- NOTE | 2021-10-30 19:54 | CT Scan Report ---
CT OF THE ABDOMEN AND PELVIS WITH CONTRAST CLINICAL HISTORY: Abdominal pain and vomiting. COMPARISON STUDY: KUB performed earlier today. CT of the abdomen and pelvis June 17, 2021. TECHNIQUE: Following IV administration of 95 mL of Optiray, axial images of the abdomen and pelvis we re obtained from the lung bases to the proximal femurs. Images were reviewed in the axial, sagittal, and coronal planes. IV contrast was administered without complication. Automated exposure control wa s utilized for the study. A dose lowering technique was utilized adhering to the principles of ALARA . CT DOSE: 252.04 mGy.cm FINDINGS: Lung bases are unremarkable. No pneumatosis, free air or portal venous gas is present. Ther e is no biliary ductal dilatation status post cholecystectomy. Liver, spleen, adrenal glands and kidn eys are unremarkable. There is no hydronephrosis. Gastrostomy tube is in place. As before, the aortom esenteric angle and aortomesenteric distance are diminished. There is only slight dilatation of the d uodenum. No convincing evidence for a bowel obstruction. Right lower quadrant ileostomy is present. N ote is made of mild wall thickening with adjacent stranding of the distal descending and proximal sig moid colon. Colon is underdistended. The appendix is not visualized. There is a corpus luteal cyst wi thin the right ovary. Ovaries are not enlarged. No fluid collection to suggest an abscess is present. Major vasculature is patent. No intussusception is identified. Moderate amount stool within the righ t colon is present. IMPRESSION: 1. Mild wall thickening with adjacent stranding of the descending and proximal sigmoid colon. This fa vors a mild nonspecific colitis. 2. No bowel obstruction. Right lower quadrant ileostomy. 3. No intussusception. ACT 112: Negative or not required by law. Electronically signed by: Ruperto Lopez M.D. 10/30/2021 7:53 PM
--- NOTE | 2021-10-30 21:10 | History & Physical Report ---
Date of Service October 30, 2021 Assessment & Plan (1) Abdominal pain, chronic, generalized: Plan: 31yo female with complicated history to include SMAS s/p surgical repair, GI dysmotility, prior jejunal intussusception. Patient with ileostomy, G-tube in place. She is on chronic TPN and lipid infusions. Patient presents with acute episode of lower abdominal pain, nausea. Workup as above concerning for leukocytosis with WBC=19.64, colitis noted on CT image. No intussusception. No perforation or obstruction. -Admit to medical -Check stool for c.diff and GI panel -Check blood cultures -Check Fungitell - patient with leukocytosis, on chronic TPN with lipids -Check procalcitonin and lactate levels -Pain control with Dilaudid PRN -Nausea control with Zofran PRN -NPO for now - patient's mother is to bring in TPN which can be started tomorrow with assistance from Pharmacy -Continue Tramadol 50mg po BID PRN -Continue Tylenol 1000mg po q6 hours PRN -Continue Bentyl 20mg po q6 hours PRN -Continue Pepcid 20mg po BID -Continue Protonix 40mg po qAM (2) Colitis: Plan: Colitis mentioned on imaging. ?infectious, less likely ischemic -GI panel and C. diff as above -Zosyn 3.375gm IV q 8 hours for now -Monitor output -Pain control as above (3) Adrenal insufficiency: Plan: Blood pressure stable -Continue Hydrocortisone 15mg po qAM and 10mg po q afternoon -Continue Florinef 0.2mg po qAM and 0.1mg po q PM (4) On total parenteral nutrition (TPN): Plan: As above. Patient receives TPN infusion as well as separate Lipid infusion (done so to limit nausea). Her TPN is managed by Nutrition team at [facility]. Patient's mother is to bring in TPN to start tomorrow -TPN tomorrow -Pharmacy assistance appreciated Plan: F/E/N - LR at 80mL/hr x 2 liters, K repletion with 2omEq, repeat chemistry in AM, NPO for now Ppx - Low risk for DVT Code - Full Dispo - Admit to medical History of Present Illness Chief Complaint: abdominal pain Primary Care Provider: DO Pilar Borrego is a 31yo female with complicated past medical history consisting of SMA syndrome s/p surgery, chronic GI dysmotility, presence of ileostomy and G-tube as well as port for TPN administration and adrenal insufficiency. She presents today with abdominal pain. Patient has been in her usual state of health. She visited her brother in [place] this weekend and has been doing well. This afternoon around 13:00 she developed acute onset of severe a bdominal pain located in the mid-lower abdomen. She reports the pain was sever, 10/10, felt tearing and twisting in nature. Constant with associated nausea. Patient reports that her discomfort feels like prior episodes of intussusception. She has had some increase in liquid output from her ileostomy as well as passage of bloody mucus from her rectum which is atypical. Otherwise she denies fever, chills, rigors, chest pain, cough, SOB, dysuria. Patient in significant discomfort upon arrival to the ER. She was administered several doses of IV Dilaudid as well as IV Zofran with overall improvement in pain. Patient has had revision of her tube. Was previously a G-J tube but has been recently been revised to only a G-tube with hopes that this would help decrease episodes of intussusception. She uses her G tube predominantly to vent and drain. She does take her Gabapentin liquid via G-tube. Patient has a port present and receives TPN. She reports her port has been functioning properly with no pain, redness. Her TPN is managed by the Nutrition team at [facility]. She typically receives TPN infusion for 18 hours then receives her lipids separately. Patient's mother has TPN at home and is planning on bringing it in tomorrow. Patient is moving forward with plans for an intestinal transplant to be done at [facility]. She was recently discovered to have low bone density and is to be started on an infusion for this (uncertain of medication) ER Course: Dilaudid 1mg IV x 7 doses Zofran 4mg IV x 3 doses NSS x 1L Allergies Allergy/AdvReac Type Severity Reaction Status Date / Time amoxicillin Allergy Intermediate RASH Verified 10/30/21 18:14 cefazolin Allergy Intermediate rash Verified 10/30/21 18:14 Cephalosporins Allergy Intermediate HIVES Verified 10/30/21 18:14 clavulanic acid Allergy Intermediate HIVES Verified 10/30/21 18:14 iron [From Venofer] Allergy Intermediate Muscle Pain Verified 10/30/21 18:14 Penicillins Allergy Intermediate HIVES Verified 10/30/21 18:14 prochlorperazine Allergy Intermediate HIVES Verified 10/30/21 18:14 promethazine Allergy Intermediate hives, Verified 10/30/21 18:14 throat swelling sulfamethoxazole Allergy Intermediate RASH Verified 10/30/21 18:14 sumatriptan Allergy Intermediate RASH Verified 10/30/21 18:14 trimethoprim Allergy Intermediate RASH Verified 10/30/21 18:14 metoclopramide AdvReac Severe anxiety/ Verified 10/30/21 18:14 jittery diphenhydramine AdvReac Intermediate Tachycardia, Verified 10/30/21 18:14 Severe Anxiety WITH IV ONLY erythromycin base AdvReac Intermediate GI SYMPTOMS Verified 10/30/21 18:14 citalopram [From Celexa] AdvReac Unknown CAN'T Verified 10/30/21 18:14 REMEMBER MULTIVITAMIN Allergy Intermediate SEE COMMENT Uncoded 10/30/21 18:14 Home Medications Medication Instructions Recorded Confirmed Type dicyclomine 10 mg capsule 10 - 20 mg PO Q6H PRN 03/07/18 10/30/21 History hyoscyamine sulfate 0.125 mg 0.125 mg SUBLINGUAL Q4H PRN 03/07/18 10/30/21 History sublingual tablet (Levsin/SL) pantoprazole 40 mg tablet,delayed 40 mg PO QAM 09/08/19 10/30/21 History release (Protonix) famotidine 40 mg tablet 20 mg PO BID 11/28/19 10/30/21 History lorazepam 2 mg/mL injection 0.5 mg BUCCAL QID PRN 12/05/19 10/30/21 History solution (Ativan) hydrocortisone 10 mg tablet 10 - 15 mg PO BID 02/07/20 10/30/21 History ondansetron 4 mg disintegrating 4 mg TRANSLINGUAL Q6H PRN 02/07/20 10/30/21 History tablet trimethobenzamide 300 mg capsule 300 mg PO Q6H PRN 02/07/20 10/30/21 History fexofenadine 180 mg tablet 180 mg PO PM 10/09/20 10/30/21 History gabapentin 250 mg/5 mL oral 300 mg PO TID 10/09/20 10/30/21 History solution fludrocortisone 0.1 mg tablet 0.1 - 0.2 mg PO UD 12/12/20 10/30/21 History tramadol 50 mg tablet 50 mg PO Q12 PRN 04/15/21 10/30/21 History acetaminophen 500 mg tablet 1,000 mg PO Q6H PRN 06/13/21 10/30/21 History (Tylenol Extra Strength) ascorbic acid (vitamin C) 500 mg 0 mg PO PM 06/13/21 10/30/21 History chewable tablet (Vitamin C) coenzyme Q10 100 mg capsule 0 mg PO PM 06/13/21 10/30/21 History (CoQ-10) multivitamin with minerals-folic 2 tab PO PM 06/13/21 10/30/21 History acid 200 mcg chewable tablet (Multivitamin Gummies) turmeric 400 mg capsule 0 mg PO PM 06/13/21 10/30/21 History vitamin B complex 1 tab PO PM 06/13/21 10/30/21 History Past Med/Surg History Medical History Asthma Chronic migraine Endometriosis has had 3 surgeries for this. Last surgery [address] Hemorrhagic cystitis Hypotension Intussusception PICC (peripherally inserted central catheter) in place TPN SMAS (superior mesenteric artery syndrome) Sphincter of Oddi dysfunction DECREASED GI MOTILITY Uses feeding tube gastroparesis and decreased GI motility can not tolerate feeding and uses TPN UTI (urinary tract infection) Surgical History H/O adenoidectomy H/O laparoscopy H/O lumpectomy right breast 2011 History of appendectomy History of bowel resection Part of duodenum removed due to necrosis; done at [facility] 2019 History of hysterectomy 09/27/19 History of removal of Port-a-Cath 10/13/[address] Geiger, [facility], due to bacteremia/sepsis. History of vascular access device 2018 Hx of colonoscopy during procedure perforated small bowel 10/27/2019 at [facility], subsequent repair of duodenal area. Hx of ileostomy Hx of tonsillectomy S/P cholecystectomy 2015 S/P wrist surgery right Family History Father Hyperlipidemia Other No significant family history Social History Smoking Status: Never smoker Second Hand Exposure: No; Hx Alcohol Use: No Hx Substance Use: No Preferred Language: Kinyarwanda Communication Ability: Effective Visual Impairment: No Limitations Hearing Ability: Normal Health Information Director Required: No Beliefs That Will Affect Care: None marital status: single Current Living Situation: Parent Current Living Situation Comment: Lives with family. current occupational status: unemployed Feels Safe at Home: Yes Assistive Devices: None Review of Systems Review of Systems: All systems reviewed & are unremarkable except as noted in HPI & below Physical Exam Physical Exam: General: patient resting comfortably, NAD, thin and frail in appearance Skin: warm, dry, intact, no rashes or lesions HEENT: NC/AT, PERRL, EOMI, anicteric sclera, conjunctiva without injection, external ear normal to inspection and nontender, nares patent, moist mucus membranes, dentition intact, no oropharyngeal lesions, neck supple, trachea midline, no LAD, no thyromegaly, no JVD Heart: +S1/S2, regular, no m/r/g, port present right chest, non-tender to palpation Lungs: equal air entry bilaterally, no rales/rhonchi/wheezes Abd: +BS, soft, tender to palpation in lower abdomen with voluntary guarding, no distention, ileostomy in place with liquid output, G-tube in place with no edema/erythema Ext: warm, 2+ pulses in UE/LE bilaterally, no clubbing/cyanosis or edema Neuro: nonfocal, patient AA&O x 4, speech intact, no facial droop, moving all extremities on command with equal strength 5/5 Results & Data Results & Data ([facility]) Vital Signs (Past 12 Hours) Vital Signs Temp Pulse Resp BP Pulse Ox 10/30/21 16:30 115 H 19 101/65 98 10/30/21 16:15 115 H 17 99 10/30/21 16:09 113 H 17 95/62 L 95 10/30/21 16:00 101 H 15 90/54 L 97 10/30/21 15:55 104 H 13 96/56 L 97 10/30/21 15:48 111 H 24 98 10/30/21 15:45 119 H 20 10/30/21 13:56 37.1 C 111 H 18 106/71 98 Laboratory Results Laboratory Results WBC 19.64 K/uL (4.8-10.8) H 10/30/21 15:52 RBC 3.69 M/uL (4.2-5.4) L 10/30/21 15:52 Hgb 12.3 g/dL (12.0-16.0) 10/30/21 15:52 Hct 35.7 % (37-47) L 10/30/21 15:52 MCV 96.7 fL (80-100) 10/30/21 15:52 MCH 33.3 pg (25-34) 10/30/21 15:52 MCHC 34.5 g/dL (32-36) 10/30/21 15:52 RDW Std Deviation 41.7 fL (36.4-46.3) 10/30/21 15: RDW Coeff of Tim 11.7 % (11.5-14.5) 10/30/21 15: Plt Count 296 K/uL (130-400) 10/30/21 15:52 MPV 10.6 fL (7.4-10.4) H 10/30/21 15:52 Immature Gran % (Auto) 0.3 % 10/30/21 15:52 Neut % (Auto) 83.9 % 10/30/21 15:52 Lymph % (Auto) 7.7 % 10/30/21 15:52 [place] % (Auto) 7.3 % 10/30/21 15:52 Eos % (Auto) 0.6 % 10/30/21 15:52 Baso % (Auto) 0.2 % 10/30/21 15:52 Neut # (Auto) 16.50 K/uL (1.4-6.5) H 10/30/21 15:52 Lymph # (Auto) 1.51 K/uL (1.2-3.4) 10/30/21 15:52 [place] # (Auto) 1.43 K/uL (0.11-0.59) H 10/30/21 15:52 Eos # (Auto) 0.11 K/uL (0-0.5) 10/30/21 15:52 Baso # (Auto) 0.03 K/uL (0-0.2) 10/30/21 15:52 Immature Gran # (Auto) 0.06 K/uL (0.00-0.02) H 10/30/21 15:52 Sodium 139 mmol/L (136-145) 10/30/21 15:52 Potassium 3.4 mmol/L (3.5-5.1) L 10/30/21 15:52 Chloride 106 mmol/L (98-107) 10/30/21 15:52 Carbon Dioxide 25 mmol/L (21-32) 10/30/21 15:52 Anion Gap 8 (3-11) 10/30/21 15:52 BUN 10 mg/dl (6-23) 10/30/21 15:52 Creatinine 0.88 mg/dl (0.6-1.2) 10/30/21 15:52 Est Cr Clr Drug Dosing Not Reportable 10/30/21 15:52 Est GFR ( Amer) 102.9 ml/min 10/30/21 15:52 Est GFR (Non-Af Amer) 88.8 ml/min 10/30/21 15:52 BUN/Creatinine Ratio 11.4 (10-20) 10/30/21 15:52 Glucose 94 mg/dl (70-99(Fasting)) 10/30/21 15:52 Calcium 8.6 mg/dl (8.5-10.1) 10/30/21 15:52 Total Bilirubin 0.4 mg/dl (0.2-1.0) 10/30/21 15:52 AST 13 U/L (13-39) 10/30/21 15:52 ALT 8 U/L (7-52) 10/30/21 15:52 Alkaline Phosphatase 47 U/L (34-104) 10/30/21 15:52 Total Protein 6.4 gm/dl (6.0-8.3) 10/30/21 15:52 Albumin 4.2 gm/dl (3.4-5.0) 10/30/21 15:52 Globulin 2.2 gm/dl (2.5-4.0) L 10/30/21 15:52 Albumin/Globulin Ratio 1.9 (0.9-2) 10/30/21 15:52 Lipase 21 U/L (11-82) 10/30/21 15:52 Urine Color Yellow 10/30/21 17:00 Urine Appearance Clear (Clear) 10/30/21 17:00 Urine pH 6.0 (4.5-7.5) 10/30/21 17:00 Ur Specific [place] 1.008 (1.000-1.030) 10/30/21 17:00 Urine Protein Negative (Negative) 10/30/21 17:00 Urine Glucose (UA) Negative (Negative) 10/30/21 17:00 Urine Ketones Negative (Negative) 10/30/21 17:00 Urine Blood Negative (Negative) 10/30/21 17:00 Urine Nitrite Negative (Negative) 10/30/21 17:00 Urine Bilirubin Negative (Negative) 10/30/21 17:00 Urine Urobilinogen Negative (Negative) 10/30/21 17:00 Ur Leukocyte Esterase Negative (Negative) 10/30/21 17:00 SARS-CoV-2, RNA, NAAT NEGATIVE (NEGATIVE) 10/30/21 Unknown Impressions Chest X-Ray 10/30/21 15:14 SINGLE VIEW CHEST CLINICAL HISTORY: Vomiting. FINDINGS: An AP, portable, upright chest radiograph is compared to study dated 06/18/2021. A right subclavian central venous infusion port is unchanged in position. The cardiomediastinal silhouette is unremarkable. There is minimal elevation of the right hemidiaphragm. The lungs and pleural spaces are clear. No pneumothorax is seen. The bony thorax is grossly intact. There is mild spinal scoliosis. IMPRESSION: No active disease in the chest. ACT 112: Negative or not required by law. Electronically signed by: Kirk Burgos M.D. 10/30/2021 4:11 PM KUB X-Ray 10/30/21 15:14 KUB CLINICAL HISTORY: Vomiting. FINDINGS: 2 AP supine abdominal radiographs are compared to study dated 03/13/2021 and correlated with abdominal CT dated 06/17/2021. Cholecystectomy clips are seen in the right upper quadrant and surgical clips project over the pelvis. A percutaneous gastrostomy tube is in place. There is no bowel obstruction. An ostomy projects over the right lower quadrant. No evidence of intraperitoneal free air is seen on these supine images. The bony structures appear intact. IMPRESSION: No acute abnormality is identified. Electronically signed by: Kirk Burgos M.D. 10/30/2021 4:13 PM Abdomen/Pelvis CT 10/30/21 18:32 CT OF THE ABDOMEN AND PELVIS WITH CONTRAST CLINICAL HISTORY: Abdominal pain and vomiting. COMPARISON STUDY: KUB performed earlier today. CT of the abdomen and pelvis June 17, 2021. TECHNIQUE: Following IV administration of 95 mL of Optiray, axial images of the abdomen and pelvis were obtained from the lung bases to the proximal femurs. Images were reviewed in the axial, sagittal, and coronal planes. IV contrast was administered without complication. Automated exposure control was utilized for the study. A dose lowering technique was utilized adhering to the principles of ALARA. CT DOSE: 252.04 mGy.cm FINDINGS: Lung bases are unremarkable. No pneumatosis, free air or portal venous gas is present. There is no biliary ductal dilatation status post cholecystectomy. Liver, spleen, adrenal glands and kidneys are unremarkable. There is no hydronephrosis. Gastrostomy tube is in place. As before, the aortomesenteric angle and aortomesenteric distance are diminished. There is only slight dilatation of the duodenum. No convincing evidence for a bowel obstruction. Right lower quadrant ileostomy is present. Note is made of mild wall thickening with adjacent stranding of the distal descending and proximal sigmoid colon. Colon is underdistended. The appendix is not visualized. There is a corpus luteal cyst within the right ovary. Ovaries are not enlarged. No fluid collection to suggest an abscess is present. Major vasculature is patent. No intussusception is identified. Moderate amount stool within the right colon is present. IMPRESSION: 1. Mild wall thickening with adjacent stranding of the descending and proximal sigmoid colon. This favors a mild nonspecific colitis. 2. No bowel obstruction. Right lower quadrant ileostomy. 3. No intussusception. ACT 112: Negative or not required by law. Electronically signed by: Ruperto Lopez M.D. 10/30/2021 7:53 PM PG Care Time/CCT Total # of Minutes Spent Total Time Spent with Patient: Total time spent is greater than 50% in coordination of care (as documented) at patient's floor/unit and/or counseling patient: Coding Level of Care Code 54044 Initial Inpt Care Lvl 3 Diagnoses Abdominal pain, chronic, generalized R10.84; G89.29 Colitis K52.9 Adrenal insufficiency E27.40 On total parenteral nutrition (TPN) Z78.9
[2021-10-30] MEDS ORDERED: ONDANSETRON INJ 2 MG/ML 2 ML VIAL ONE (22:52)
[2021-10-31] MEDS: HYDROmorphone INJ 1 MG/ML SYRINGE IV PRN ×11 (00:21→21:45)
[2021-10-31] MEDS ORDERED: LORazepam 0.5 MG in SYRINGE 0.25 ML IV STA (01:02)
[2021-10-31] MEDS ORDERED: LORazepam 2 MG/1 ML VIAL ONE (01:08)
[2021-10-31] MEDS ORDERED: traMADol HCL 50 MG TABLET PO PRN (02:39)
[2021-10-31] MEDS ORDERED: ACETAMINOPHEN 500 MG TAB PO PRN (02:39)
[2021-10-31] MEDS ORDERED: HYOSCYAMINE SULFATE 0.125 MG TAB SL PRN (02:39)
[2021-10-31] MEDS ORDERED: POTASSIUM CHLORIDE CRTAB 20 MEQ TABCR PO STA (02:39)
[2021-10-31] MEDS ORDERED: LORazepam 0.5 MG TAB PO PRN (02:39)
[2021-10-31] MEDS ORDERED: TPN/PPN CONSULT PHARMACY PRN (02:51)
[2021-10-31] MEDS ORDERED: PIPERACILLIN/TAZOBACTAM 3.375 GM in DEXTROSE 5% 100 ML IV STA (02:59)
[2021-10-31] MEDS: ONDANSETRON INJ 2 MG/ML 2 ML VIAL IV PRN ×3 (03:07→21:45)
[2021-10-31] MEDS: LACTATED RINGER'S 1,000 ML IV SCH (03:08)
[2021-10-31 04:34] LABS: Basophils # (auto) 0.02 K/uL (0-0.2); Basophils % (auto) 0.1 %; Eosinophils # (auto) 0.08 K/uL (0-0.5); Eosinophils % (auto) 0.5 %; Hemoglobin 12.5 g/dL (12.0-16.0); Immature Granulocytes # (auto) 0.05 K/uL (0.00-0.02); Immature Granulocytes % (auto) 0.3 %; Lymphocytes # (auto) 1.61 K/uL (1.2-3.4); Lymphocytes % (auto) 9.7 %; Mean Corpuscular Hemoglobin 32.5 pg (25-34); Mean Corpuscular Hgb Conc 33.8 g/dL (32-36); Mean Corpuscular Volume 96.1 fL (80-100); Mean Platelet Volume 10.8 fL (7.4-10.4); Monocytes # (auto) 1.65 K/uL (0.11-0.59); Monocytes % (auto) 9.9 %; Neutrophils % (auto) 79.5 %; Platelet Count 249 K/uL (130-400); RDW Coefficient of Variation 11.7 % (11.5-14.5); RDW Standard Deviation 41.2 fL (36.4-46.3); Red Blood Count 3.85 M/uL (4.2-5.4); White Blood Count 16.61 K/uL (4.8-10.8)
[2021-10-31 04:45] LABS: BUN Creatinine Ratio 9.7 (10-20); Creatinine Clr Calc Pharmacy 85.5 ml/min; Est GFR (African American) 131.2 ml/min; Est GFR (Non-African American) 113.2 ml/min; Potassium 3.5 mmol/L (3.5-5.1)
[2021-10-31 04:46] LABS: Calcium 8.4 mg/dl (8.5-10.1)
[2021-10-31] MEDS: FEXOFENADINE HCL 180 MG TAB PO SCH ×2 (04:46→19:46)
[2021-10-31] MEDS: FAMOTIDINE 20 MG TAB PO SCH ×3 (04:46→19:46)
[2021-10-31] MEDS: GABAPENTIN 250 MG/5 ML 470 ML BTL GT SCH ×4 (04:48→19:49)
[2021-10-31 05:22] LABS: Magnesium 1.9 mg/dl (1.7-2.4); Phosphorus 3.6 mg/dl (2.5-4.9)
[2021-10-31] MEDS: DICYCLOMINE HCL 10 MG CAP PO PRN (07:36)
[2021-10-31] MEDS: PANTOprazole 40 MG TAB PO SCH (07:36)
[2021-10-31] MEDS: HYDROCORTISONE 10 MG TAB PO SCH ×2 (07:37→17:11)
[2021-10-31] MEDS: FLUDROCORTISONE ACETATE 0.1 MG TAB PO SCH ×2 (07:37→17:11)
[2021-10-31] MEDS: LORazepam 0.5 MG in SYRINGE 0.25 ML IV PRN ×2 (08:15→17:09)
[2021-10-31] MEDS: PIPERACILLIN/TAZOBACTAM 3.375 GM in DEXTROSE 5% 100 ML IV SCH ×2 (11:19→18:07)
[2021-10-31] MEDS ORDERED: ACETAMINOPHEN 1,000 MG/100 ML VIAL IV PRN (12:08)
--- NOTE | 2021-10-31 16:43 | Hospitalist Progress Note ---
Date of Service October 31, 2021 Assessment & Plan (1) Abdominal pain, chronic, generalized: Plan: 31yo female with complicated history to include SMAS s/p surgical repair, GI dysmotility, prior jejunal intussusception. Patient with ileostomy, G-tube in place. She is on chronic TPN and lipid infusions. Patient presents with acute episode of lower abdominal pain, nausea. Workup as above concerning for leukocytosis with WBC=19.64, colitis noted on CT image. No intussusception. No perforation or obstruction. Procal, lactate normal Distal descending and prox sigmoid colitis on CT, di dhave some bloody mucoid discharge per rectum the day of admission which is unusual fo rher since getting her ileostomy DO not suspect intussusception at this time. Pt has a long h/o opioid use and has a very high tolerance for opioid medications-is currently receiving dilaudid 1mg IV q2h and still needs/asking for it earlier than due Has long history of chronic abdominal pain as well and says she was proven to have intussusception at [facility] on a barium study No obstruction on imaging and has ongoing ileostomy output, no blood. -Check stool for c.diff and GI panel still pending -Check blood cultures-NGTD WBC count lower today -Check Fungitell - patient with leukocytosis, on chronic TPN with lipids-pending -follow CBC< CMP, lactate and lytes in AM -Pain control with Dilaudid PRN -Nausea control with Zofran PRN, IV ativan prn -NPO for now - patient's mother brought in home TPN -Continue Tramadol 50mg po BID PRN -Continue Tylenol 1000mg po q6 hours PRN -Continue Bentyl 20mg po q6 hours PRN -Continue Pepcid 20mg po BID -Continue Protonix 40mg po qAM (2) Nausea and vomiting: Plan: worsened by pain and certain medications, has known gut motility disorder continue antiemetics as above keep NPO (3) Leukocytosis: Plan: improved today, secondary to colitis and reactive to vomiting (4) Colitis: Plan: Colitis mentioned on imaging. ?infectious, less likely ischemic -GI panel and C. diff as above -continue Zosyn 3.375gm IV q 8 hours for now -Monitor output -Pain control as above (5) Adrenal insufficiency: Plan: Blood pressure stable -Continue Hydrocortisone 15mg po qAM and 10mg po q afternoon -Continue Florinef 0.2mg po qAM and 0.1mg po q PM (6) On total parenteral nutrition (TPN): Plan: As above. Patient receives TPN infusion as well as separate Lipid infusion (done so to limit nausea). [place] [facility] [place] to run tonight -Pharmacy assistance appreciated (7) Gastrostomy tube in place: Plan: exchanged last year from G-J to just G tube (8) Severe protein-calorie malnutrition: Plan: Severe protein-calorie malnutrition BMI 16 has gained 4 kg since starting TPN Continue TPN awaiting small bowel transplant Plan: COntinue IVFs for hydration Ppx - Low risk for DVT Code - Full Dispo - continued stay on medical Admission and Anticipated Discharge Date Admission Date: October 30, 2021 Subjective Pt actively vomiting when I saw her, thinks it's from the gabapentin she just took. Also reports a lot of pain in lower abdomen and this worsens her nausea. Has output in her ostomy. No blood in ostomy or vomit. Had some bloody mucus discharge per rectum yesterday. We reviewed her history since the last time i saw her over a year ago Review of Systems Review of Systems: All systems reviewed & are unremarkable except as noted in HPI & below Physical Exam Constitutional: + thin and + underweight Eyes: + anicteric sclerae ENMT: external ear and nose normal, oropharynx normal Neck: trachea midline, no thyromegaly Respiratory: normal respiratory effort, lungs clear to auscultation Cardiovascular: RRR, no murmur, no edema Chest (Breasts): Chest: normal inspection of chest Gastrointestinal (Abdomen): Inspection/Auscultation: normal bowel sounds; + abdomen abnormal to inspection (G tube and ileostomy bag in place with liquid) and abdomen not distended Percussion/Palpation: + abdomen tender (lower abd without guarding or rebound) and abdomen soft Musculoskeletal: Extremities: extremities normal to inspection; no cyanosis and no clubbing Skin: no rashes, warm and dry Neurologic: moves all extremities and awake; no focal motor deficits Psychiatric: A+Ox3, euthymic affect Lymphatic: no lymphedema Results & Data Results & Data ([facility]) Vital Signs (Past 12 Hours) Vital Signs Temp Pulse Resp BP Pulse Ox 10/31/21 15:38 36.8 C 92 H 20 99/67 L 96 10/31/21 07:57 36.9 C 112 H 20 94/64 L 99 Laboratory Results 10/31/21 10/31/21 10/31/21 Range/Units 04:08 04:03 04:03 WBC 16.61 H (4.8-10.8) K/uL RBC 3.85 L (4.2-5.4) M/uL Hgb 12.5 (12.0-16.0) g/dL Hct 37.0 (37-47) % MCV 96.1 (80-100) fL MCH 32.5 (25-34) pg MCHC 33.8 (32-36) g/dL RDW Std Deviation 41.2 (36.4-46.3) fL RDW Coeff of Tim 11.7 (11.5-14.5) % Plt Count 249 (130-400) K/uL MPV 10.8 H (7.4-10.4) fL Immature Gran % (Auto) 0.3 % Neut % (Auto) 79.5 % Lymph % (Auto) 9.7 % [place] % (Auto) 9.9 % Eos % (Auto) 0.5 % Baso % (Auto) 0.1 % Neut # (Auto) 13.20 H (1.4-6.5) K/uL Lymph # (Auto) 1.61 (1.2-3.4) K/uL [place] # (Auto) 1.65 H (0.11-0.59) K/uL Eos # (Auto) 0.08 (0-0.5) K/uL Baso # (Auto) 0.02 (0-0.2) K/uL Immature Gran # (Auto) 0.05 H (0.00-0.02) K/uL Sodium 139 (136-145) mmol/L Potassium 3.5 (3.5-5.1) mmol/L Chloride 106 (98-107) mmol/L Carbon Dioxide 27 (21-32) mmol/L Anion Gap 6 (3-11) BUN 7 (6-23) mg/dl Creatinine 0.72 (0.6-1.2) mg/dl Est Cr Clr Drug Dosing 85.5 ml/min Est GFR ( Amer) 131.2 ml/min Est GFR (Non-Af Amer) 113.2 ml/min BUN/Creatinine Ratio 9.7 L (10-20) Glucose 88 (70-99(Fasting)) mg/dl Lactate 0.5 (0.4-2.0) mmol/L Calcium 8.4 L (8.5-10.1) mg/dl Phosphorus (2.5-4.9) mg/dl Magnesium (1.7-2.4) mg/dl Procalcitonin (0-0.5) ng/ml SARS-CoV-2, RNA, NAAT (NEGATIVE) Beta-(1,3)-D-Glucan B-(1,3)-D-Glucan Intrp 10/31/21 10/31/21 10/31/21 Range/Units 04:03 04:03 04:03 WBC (4.8-10.8) K/uL RBC (4.2-5.4) M/uL Hgb (12.0-16.0) g/dL Hct (37-47) % MCV (80-100) fL MCH (25-34) pg MCHC (32-36) g/dL RDW Std Deviation (36.4-46.3) fL RDW Coeff of Tim (11.5-14.5) % Plt Count (130-400) K/uL MPV (7.4-10.4) fL Immature Gran % (Auto) % Neut % (Auto) % Lymph % (Auto) % [place] % (Auto) % Eos % (Auto) % Baso % (Auto) % Neut # (Auto) (1.4-6.5) K/uL Lymph # (Auto) (1.2-3.4) K/uL [place] # (Auto) (0.11-0.59) K/uL Eos # (Auto) (0-0.5) K/uL Baso # (Auto) (0-0.2) K/uL Immature Gran # (Auto) (0.00-0.02) K/uL Sodium (136-145) mmol/L Potassium (3.5-5.1) mmol/L Chloride (98-107) mmol/L Carbon Dioxide (21-32) mmol/L Anion Gap (3-11) BUN (6-23) mg/dl Creatinine (0.6-1.2) mg/dl Est Cr Clr Drug Dosing ml/min Est GFR ( Amer) ml/min Est GFR (Non-Af Amer) ml/min BUN/Creatinine Ratio (10-20) Glucose (70-99(Fasting)) mg/dl Lactate (0.4-2.0) mmol/L Calcium (8.5-10.1) mg/dl Phosphorus 3.6 (2.5-4.9) mg/dl Magnesium 1.9 (1.7-2.4) mg/dl Procalcitonin 0.05 (0-0.5) ng/ml SARS-CoV-2, RNA, NAAT (NEGATIVE) Beta-(1,3)-D-Glucan Pending B-(1,3)-D-Glucan Intrp Pending 10/30/21 Range/Units Unknown WBC (4.8-10.8) K/uL RBC (4.2-5.4) M/uL Hgb (12.0-16.0) g/dL Hct (37-47) % MCV (80-100) fL MCH (25-34) pg MCHC (32-36) g/dL RDW Std Deviation (36.4-46.3) fL RDW Coeff of Tim (11.5-14.5) % Plt Count (130-400) K/uL MPV (7.4-10.4) fL Immature Gran % (Auto) % Neut % (Auto) % Lymph % (Auto) % [place] % (Auto) % Eos % (Auto) % Baso % (Auto) % Neut # (Auto) (1.4-6.5) K/uL Lymph # (Auto) (1.2-3.4) K/uL [place] # (Auto) (0.11-0.59) K/uL Eos # (Auto) (0-0.5) K/uL Baso # (Auto) (0-0.2) K/uL Immature Gran # (Auto) (0.00-0.02) K/uL Sodium (136-145) mmol/L Potassium (3.5-5.1) mmol/L Chloride (98-107) mmol/L Carbon Dioxide (21-32) mmol/L Anion Gap (3-11) BUN (6-23) mg/dl Creatinine (0.6-1.2) mg/dl Est Cr Clr Drug Dosing ml/min Est GFR ( Amer) ml/min Est GFR (Non-Af Amer) ml/min BUN/Creatinine Ratio (10-20) Glucose (70-99(Fasting)) mg/dl Lactate (0.4-2.0) mmol/L Calcium (8.5-10.1) mg/dl Phosphorus (2.5-4.9) mg/dl Magnesium (1.7-2.4) mg/dl Procalcitonin (0-0.5) ng/ml SARS-CoV-2, RNA, NAAT NEGATIVE (NEGATIVE) Beta-(1,3)-D-Glucan B-(1,3)-D-Glucan Intrp PG Care Time/CCT Total # of Minutes Spent Total Time Spent with Patient: Total time spent is greater than 50% in coordination of care (as documented) at patient's floor/unit and/or counseling patient: Coding Level of Care Code 25179 Subseq Hosp Care Lvl 3 Diagnoses Abdominal pain, chronic, generalized R10.84; G89.29 Colitis K52.9 Adrenal insufficiency E27.40 On total parenteral nutrition (TPN) Z78.[address] Z93.1 Leukocytosis D72.829 Leukocytosis type: unspecified Nausea and vomiting R11.2 Severe protein-calorie malnutrition E43 (1) Leukocytosis Leukocytosis type: unspecified Qualified Code(s): D72.829 - Elevated white blood cell count, unspecified
[2021-10-31] MEDS ORDERED: TRIMETHOBENZAMIDE HCL PO PRN (17:00)
[2021-10-31] MEDS: CENTRAL PN IV SCH (22:43)
[2021-11-01] MEDS: LORazepam 0.5 MG in SYRINGE 0.25 ML IV PRN ×4 (00:11→21:41)
[2021-11-01] MEDS: HYDROmorphone INJ 1 MG/ML SYRINGE IV PRN ×10 (00:11→23:14)
[2021-11-01] MEDS: LIPIDS IV SCH ×2 (00:16→08:14)
[2021-11-01] MEDS: PIPERACILLIN/TAZOBACTAM 3.375 GM in DEXTROSE 5% 100 ML IV SCH ×3 (02:11→17:54)
[2021-11-01] MEDS: ONDANSETRON INJ 2 MG/ML 2 ML VIAL IV PRN ×3 (05:52→18:40)
[2021-11-01 07:34] LABS: Adenovirus F 40/41 PCR Not Detected (NotDetected); Astrovirus PCR Not Detected (NotDetected); Campylobacter PCR Not Detected (NotDetected); Cryptosporidium PCR Not Detected (NotDetected); Cyclospora cayetanensis PCR Not Detected (NotDetected); Entamoeba histolytica PCR Not Detected (NotDetected); Enteroaggregative E.coli(EAEC) Not Detected (NotDetected); Enteropathogenic E.coli (EPEC) Not Detected (NotDetected); Enterotoxigenic E.coli (ETEC) Not Detected (NotDetected); Giardia lamblia PCR Not Detected (NotDetected); Norovirus GI/GII PCR Not Detected (NotDetected); Plesiomonas shigelloides PCR Not Detected (NotDetected); Rotavirus A PCR Not Detected (NotDetected); Salmonella PCR Not Detected (NotDetected); Sapovirus PCR Not Detected (NotDetected); Shiga-like Toxin E.coli (STEC) Not Detected (NotDetected); Shigella/Enteroinvasive E.coli Not Detected (NotDetected); Vibrio cholerae PCR Not Detected (NotDetected); Vibrio species PCR Not Detected (NotDetected); Yersinia enterocolitica PCR Not Detected (NotDetected)
[2021-11-01 07:54] LABS: Basophils # (auto) 0.02 K/uL (0-0.2); Basophils % (auto) 0.3 %; Eosinophils # (auto) 0.24 K/uL (0-0.5); Eosinophils % (auto) 3.3 %; Hemoglobin 10.9 g/dL (12.0-16.0); Immature Granulocytes # (auto) 0.02 K/uL (0.00-0.02); Immature Granulocytes % (auto) 0.3 %; Lymphocytes # (auto) 0.93 K/uL (1.2-3.4); Lymphocytes % (auto) 12.6 %; Mean Corpuscular Hemoglobin 31.9 pg (25-34); Mean Corpuscular Volume 96.5 fL (80-100); Mean Platelet Volume 10.2 fL (7.4-10.4); Monocytes # (auto) 1.17 K/uL (0.11-0.59); Monocytes % (auto) 15.9 %; Neutrophils # (auto) 4.99 K/uL (1.4-6.5); Neutrophils % (auto) 67.6 %; Platelet Count 258 K/uL (130-400); RDW Coefficient of Variation 11.4 % (11.5-14.5); RDW Standard Deviation 40.4 fL (36.4-46.3); Red Blood Count 3.42 M/uL (4.2-5.4); White Blood Count 7.37 K/uL (4.8-10.8)
[2021-11-01] MEDS: LACTATED RINGER'S 1,000 ML IV SCH (08:04)
[2021-11-01 08:47] LABS: BUN Creatinine Ratio 15.3 (10-20); Calcium 8.1 mg/dl (8.5-10.1); Creatinine Clr Calc Pharmacy 85.5 ml/min; Est GFR (African American) 131.2 ml/min; Est GFR (Non-African American) 113.2 ml/min; Magnesium 2.3 mg/dl (1.7-2.4); Phosphorus 2.4 mg/dl (2.5-4.9)
[2021-11-01 08:58] LABS: Cdiff Antigen Positive; Cdiff Toxin A+B Negative Cdiff Toxin (Negative)
--- NOTE | 2021-11-01 09:54 | XRay Report ---
KUB CLINICAL HISTORY: vomiting, h/o intussusception COMPARISON STUDY: KUB and CT of the abdomen and pelvis October 30, 2021. FINDINGS: Gastrostomy tube is in place. There are cholecystectomy clips. Surgical clips within the pe lvis are noted. Paucity of bowel gas is noted. There is no radiographic evidence for a bowel obstruct ion. A right lower quadrant ostomy is noted. IMPRESSION: No radiographic evidence for a bowel obstruction. Paucity of bowel gas. ACT 112: Negative or not required by law. Electronically signed by: Ruperto Lopez M.D. 11/01/2021 9:52 AM
[2021-11-01] MEDS: FLUDROCORTISONE ACETATE 0.1 MG TAB PO SCH ×2 (12:32→18:17)
[2021-11-01] MEDS: GABAPENTIN 250 MG/5 ML 470 ML BTL GT SCH ×3 (12:32→22:05)
--- NOTE | 2021-11-01 12:58 | Gastrointestinal Consultation ---
Date of Consultation November 01, 2021 Assessment & Plan (1) Colitis: Colitis on CT--on abx at present abd pain--chronic n/v--ordered G tube to low intermittent suction intestinal dysmotility--supportive care I, Candido Fernández MD have spent 30 minutes of discrete time performing the activities of this visit which include but are not limited to review of the medical record, obtaining a history, physical exam, and entering information in the electronic record. History of Present Illness Reason for Consultation: abd pain, n/v Attending Physician: Vicky Drew MD History of Present Illness Mother with patient for H and P. Pt know to our sevice with history of SMA syndrome s/p surgery, ileostomy for intestinal motility, hx of J tube causing intussecption, indwelling G tube and on TPN. Hx of adrenal insuffiency also.. She is pursuing SB transplant at [facility]. She is admitted with n/v and abd pain. WBC initially elevated AT 16 but normal today. Abx were started for elevated WBC and colon thickening on A/P CT. She has some increased nausea she attributes to Abx. She states at about the same time of this attack she noted some blood and mucous per rectum. Allergies Allergy/AdvReac Type Severity Reaction Status Date / Time amoxicillin Allergy Intermediate RASH Verified 10/30/21 18:14 cefazolin Allergy Intermediate rash Verified 10/30/21 18:14 Cephalosporins Allergy Intermediate HIVES Verified 10/30/21 18:14 clavulanic acid Allergy Intermediate HIVES Verified 10/30/21 18:14 iron [From Venofer] Allergy Intermediate Muscle Pain Verified 10/30/21 18:14 Penicillins Allergy Intermediate HIVES Verified 10/30/21 18:14 prochlorperazine Allergy Intermediate HIVES Verified 10/30/21 18:14 promethazine Allergy Intermediate hives, Verified 10/30/21 18:14 throat swelling sulfamethoxazole Allergy Intermediate RASH Verified 10/30/21 18:14 sumatriptan Allergy Intermediate RASH Verified 10/30/21 18:14 trimethoprim Allergy Intermediate RASH Verified 10/30/21 18:14 metoclopramide AdvReac Severe anxiety/ Verified 10/30/21 18:14 jittery diphenhydramine AdvReac Intermediate Tachycardia, Verified 10/30/21 18:14 Severe Anxiety WITH IV ONLY erythromycin base AdvReac Intermediate GI SYMPTOMS Verified 10/30/21 18:14 citalopram [From Celexa] AdvReac Unknown CAN'T Verified 10/30/21 18:14 REMEMBER MULTIVITAMIN Allergy Intermediate SEE COMMENT Uncoded 10/30/21 18:14 Home Medications Medication Instructions Recorded Confirmed Type dicyclomine 10 mg capsule 10 - 20 mg PO Q6H PRN 03/07/18 10/30/21 History hyoscyamine sulfate 0.125 mg 0.125 mg SUBLINGUAL Q4H PRN 03/07/18 10/30/21 History sublingual tablet (Levsin/SL) pantoprazole 40 mg tablet,delayed 40 mg PO QAM 09/08/19 10/30/21 History release (Protonix) famotidine 40 mg tablet 20 mg PO BID 11/28/19 10/30/21 History lorazepam 2 mg/mL injection 0.5 mg BUCCAL QID PRN 12/05/19 10/30/21 History solution (Ativan) hydrocortisone 10 mg tablet 10 - 15 mg PO BID 02/07/20 10/30/21 History ondansetron 4 mg disintegrating 4 mg TRANSLINGUAL Q6H PRN 02/07/20 10/30/21 History tablet trimethobenzamide 300 mg capsule 300 mg PO Q6H PRN 02/07/20 10/30/21 History fexofenadine 180 mg tablet 180 mg PO PM 10/09/20 10/30/21 History gabapentin 250 mg/5 mL oral 300 mg PO TID 10/09/20 10/30/21 History solution fludrocortisone 0.1 mg tablet 0.1 - 0.2 mg PO UD 12/12/20 10/30/21 History tramadol 50 mg tablet 50 mg PO Q12 PRN 04/15/21 10/30/21 History acetaminophen 500 mg tablet 1,000 mg PO Q6H PRN 06/13/21 10/30/21 History (Tylenol Extra Strength) ascorbic acid (vitamin C) 500 mg 0 mg PO PM 06/13/21 10/30/21 History chewable tablet (Vitamin C) coenzyme Q10 100 mg capsule 0 mg PO PM 06/13/21 10/30/21 History (CoQ-10) multivitamin with minerals-folic 2 tab PO PM 06/13/21 10/30/21 History acid 200 mcg chewable tablet (Multivitamin Gummies) turmeric 400 mg capsule 0 mg PO PM 06/13/21 10/30/21 History vitamin B complex 1 tab PO PM 06/13/21 10/30/21 History Patient History Medical History Asthma Chronic migraine Endometriosis has had 3 surgeries for this. Last surgery [address] Hemorrhagic cystitis Hypotension Intussusception PICC (peripherally inserted central catheter) in place TPN SMAS (superior mesenteric artery syndrome) Sphincter of Oddi dysfunction DECREASED GI MOTILITY Uses feeding tube gastroparesis and decreased GI motility can not tolerate feeding and uses TPN UTI (urinary tract infection) Surgical History H/O adenoidectomy H/O laparoscopy H/O lumpectomy right breast 2011 History of appendectomy History of bowel resection Part of duodenum removed due to necrosis; done at [facility] 2019 History of hysterectomy 09/27/19 History of removal of Port-a-Cath 10/13/[address] Geiger, [facility], due to bacteremia/sepsis. History of vascular access device 2017 Hx of colonoscopy during procedure perforated small bowel 10/27/2019 at [facility], subsequent repair of duodenal area. Hx of ileostomy Hx of tonsillectomy S/P cholecystectomy 2015 S/P wrist surgery right Family History Father Hyperlipidemia Other No significant family history Social History Smoking Status: Never smoker Second Hand Exposure: No; Hx Alcohol Use: No Hx Substance Use: No Preferred Language: Nauruan Communication Ability: Effective Visual Impairment: No Limitations Hearing Ability: Normal Rail Setter Required: No Beliefs That Will Affect Care: None marital status: Single Current Living Situation: Family Current Living Situation Comment: Lives with family. current occupational status: unemployed Feels Safe at Home: Yes Assistive Devices: Wheelchair Review of Systems Review of Systems: All systems reviewed & are unremarkable except as noted in HPI & below Physical Exam Constitutional: WD/WN, vitals as above Eyes: PERRL, conjunctivae normal, anicteric sclerae ENMT: Ears: no hearing impairment Neck: normal visual inspection and trachea midline Respiratory: normal respiratory effort, lungs clear to auscultation normal respiratory effort Cardiovascular: RRR, no murmur, no edema Gastrointestinal (Abdomen): ostomy site noted with opaque bag on it, G tube site with bandage on it. pos bs, soft, no guarding nor rebound. Skin: normal turgor Neurologic: PERRL, EOMI, accommodation nl, no face palsy, no dysarthria Psychiatric: A+Ox3, euthymic affect Results & Data ([facility]) Vital Signs (Past 12 Hours) Vital Signs Temp Pulse Resp BP Pulse Ox 11/01/21 07:24 36.9 C 106 H 14 91/55 L 98
[2021-11-01] MEDS: CENTRAL PN IV SCH ×2 (17:12→22:15)
--- NOTE | 2021-11-01 18:09 | Hospitalist Progress Note ---
Date of Service November 01, 2021 Assessment & Plan (1) Abdominal pain, chronic, generalized: Plan: 31yo female with complicated history to include SMAS s/p surgical repair, GI dysmotility, prior jejunal intussusception. Patient with ileostomy, G-tube in place. She is on chronic TPN and lipid infusions. Patient presents with acute episode of lower abdominal pain, nausea/vomiting. Workup concerning for leukocytosis with WBC=19.64, colitis noted on CT image. No intussusception. No perforation or obstruction. Procal, lactate normal Distal descending and prox sigmoid colitis on CT, di dhave some bloody mucoid discharge per rectum the day of admission which is unusual fo rher since getting her ileostomy DO not suspect intussusception at this time. Pt has a long h/o opioid use and has a very high tolerance for opioid medications-is currently receiving dilaudid 1mg IV q2h Has long history of chronic abdominal pain as well and says she was proven to have intussusception at [facility] on a barium study No obstruction on imaging and has ongoing ileostomy output, no blood. Continues to have constant nausea with some vomiting, now somewhat improved with hooking G-tube to suction, frequent IV ativan Says that IV antibiotics and TPN combined make her nauseated. Pain also makes her nauseated C. diff gene positive but toxin negative, otherwise stool PCR panel negative from ileostomy Lactate remains normal Afebrile WBC count now down to normal -Follow blood cultures-NGTD -Checked Fungitell - patient with leukocytosis, on chronic TPN with lipids- pending -follow CBC, CMP, lactate and lytes in AM -Pain control with Dilaudid PRN -Nausea control with Zofran PRN, IV ativan prn -continue NPO for now - patient's mother brought in home TPN -Continue Tramadol 50mg po BID PRN -Continue Tylenol 1000mg po q6 hours PRN -Continue Bentyl 20mg po q6 hours PRN -Continue Pepcid 20mg po BID -Continue Protonix 40mg po qAM -start IV hydrocortisone 100mg IV q8h and hold po HC as she has been unable to tolerate. This may also help N/V, abd pain (2) Nausea and vomiting: Plan: worsened by pain and certain medications, has known gut motility disorder continue antiemetics as above keep NPO give stress dose steroids (3) Leukocytosis: Plan: now resolved, secondary to colitis and reactive to vomiting (4) Colitis: Plan: Colitis mentioned on imaging. ?infectious, less likely ischemic -GI panel and C. diff as above -continue Zosyn 3.375gm IV q 8 hours-will need 7 day course -Monitor output -Pain control as above Appreciate GI consultation (5) Adrenal insufficiency: Plan: Blood pressure low normal Ongoing N/V, abd pain -hold Hydrocortisone 15mg po qAM and 10mg po q afternoon and start IV hydrocortisone -Continue Florinef 0.2mg po qAM and 0.1mg po q PM if tolerated (6) On total parenteral nutrition (TPN): Plan: As above. Patient receives TPN infusion as well as separate Lipid infusion (done so to limit nausea). Her TPN is managed by Nutrition team at [facility]. -TPN from home to run tonight -Pharmacy assistance appreciated (7) Gastrostomy tube in place: Plan: exchanged last year from G-J to just G tube (8) Severe protein-calorie malnutrition: Plan: Severe protein-calorie malnutrition BMI 16 has gained 4 kg since starting TPN Continue TPN awaiting small bowel transplant Plan: Ppx - Low risk for DVT Code - Full Dispo - continued stay on medical Admission and Anticipated Discharge Date Admission Date: October 30, 2021 Subjective Pt still nauseated and vomiting at times today. Thinks the TPN and antibiotics together make her nauseated.Feels a little better since hooking the G tube up to suction. Still has abdominal pain and doesn't think it's much better than yesterday, but her mom says she has been able to space out time between pain med doses today which she sees as an improvement. Pt reports she wasn't able to take her po meds today including her HC and FLorinef Review of Systems Review of Systems: All systems reviewed & are unremarkable except as noted in HPI & below Physical Exam Constitutional: + thin and + underweight Eyes: + anicteric sclerae ENMT: external ear and nose normal, oropharynx normal Neck: trachea midline, no thyromegaly Respiratory: normal respiratory effort, lungs clear to auscultation Cardiovascular: RRR, no murmur, no edema Chest (Breasts): Chest: normal inspection of chest Gastrointestinal (Abdomen): Inspection/Auscultation: normal bowel sounds; + abdomen abnormal to inspection (G tube and ileostomy bag in place with liquid) and abdomen not distended Percussion/Palpation: + abdomen tender (lower abd without guarding or rebound) and abdomen soft Musculoskeletal: Extremities: extremities normal to inspection; no cyanosis and no clubbing Skin: no rashes, warm and dry Neurologic: moves all extremities and awake; no focal motor deficits Psychiatric: A+Ox3, euthymic affect Lymphatic: no lymphedema Results & Data Results & Data ([facility]) Vital Signs (Past 12 Hours) Vital Signs Temp Pulse Resp BP BP Pulse Ox 11/01/21 15:44 36.8 C 95 H 12 93/59 L 97 11/01/21 07:24 36.9 C 106 H 14 91/55 L 98 Laboratory Results 11/01/21 11/01/21 11/01/21 Range/Units 07:32 07:32 07:32 WBC 7.37 (4.8-10.8) K/uL RBC 3.42 L (4.2-5.4) M/uL Hgb 10.9 L (12.0-16.0) g/dL Hct 33.0 L (37-47) % MCV 96.5 (80-100) fL MCH 31.9 (25-34) pg MCHC 33.0 (32-36) g/dL RDW Std Deviation 40.4 (36.4-46.3) fL RDW Coeff of Tim 11.4 L (11.5-14.5) % Plt Count 258 (130-400) K/uL MPV 10.2 (7.4-10.4) fL Immature Gran % (Auto) 0.3 % Neut % (Auto) 67.6 % Lymph % (Auto) 12.6 % Luce % (Auto) 15.9 % Eos % (Auto) 3.3 % Baso % (Auto) 0.3 % Neut # (Auto) 4.99 (1.4-6.5) K/uL Lymph # (Auto) 0.93 L (1.2-3.4) K/uL Luce # (Auto) 1.17 H (0.11-0.59) K/uL Eos # (Auto) 0.24 (0-0.5) K/uL Baso # (Auto) 0.02 (0-0.2) K/uL Immature Gran # (Auto) 0.02 (0.00-0.02) K/uL Sodium 138 (136-145) mmol/L Potassium 4.0 (3.5-5.1) mmol/L Chloride 105 (98-107) mmol/L Carbon Dioxide 29 (21-32) mmol/L Anion Gap 4 (3-11) BUN 11 (6-23) mg/dl Creatinine 0.72 (0.6-1.2) mg/dl Est Cr Clr Drug Dosing 85.5 ml/min Est GFR ( Amer) 131.2 ml/min Est GFR (Non-Af Amer) 113.2 ml/min BUN/Creatinine Ratio 15.3 (10-20) Glucose 132 H (70-99(Fasting)) mg/dl POC Glucose (70-99) mg/dl Lactate 1.3 (0.4-2.0) mmol/L Calcium 8.1 L (8.5-10.1) mg/dl Phosphorus 2.4 L D (2.5-4.9) mg/dl Magnesium 2.3 (1.7-2.4) mg/dl Triglycerides 116 (0-150) mg/dl Stl C. cayetanensis PCR (NotDetected) Stool Rotavirus A PCR (NotDetected) Stl Adenov F 40/41 PCR (NotDetected) Stool Astrovirus (PCR) (NotDetected) Stool Campylobacter PCR (NotDetected) Stl C.difficile Tox A&B (Negative) Stl C. diff Tox A/B PCR (NotDetected) Stool Cryptosporidium PCR (NotDetected) Stl E.coli Shiga Tox PCR (NotDetected) Stl Enterotoxigenic E PCR (NotDetected) Stool EPEC (PCR) (NotDetected) Stool EAEC (PCR) (NotDetected) Stl E. histolytica PCR (NotDetected) Stool Giardia Lamblia PCR (NotDetected) Stool Salmonella PCR (NotDetected) Stool Sapovirus (PCR) (NotDetected) Stl P. shigelloides PCR (NotDetected) Stl Shigella/EIEC PCR (NotDetected) St Y.enterocolitica PCR (NotDetected) Stool Vibrio (PCR) (NotDetected) Stl Vibrio cholerae PCR (NotDetected) Stl Norovirus GI/GII PCR (NotDetected) 11/01/21 11/01/21 Range/Units 05:53 02:08 WBC (4.8-10.8) K/uL RBC (4.2-5.4) M/uL Hgb (12.0-16.0) g/dL Hct (37-47) % MCV (80-100) fL MCH (25-34) pg MCHC (32-36) g/dL RDW Std Deviation (36.4-46.3) fL RDW Coeff of Tim (11.5-14.5) % Plt Count (130-400) K/uL MPV (7.4-10.4) fL Immature Gran % (Auto) % Neut % (Auto) % Lymph % (Auto) % Luce % (Auto) % Eos % (Auto) % Baso % (Auto) % Neut # (Auto) (1.4-6.5) K/uL Lymph # (Auto) (1.2-3.4) K/uL Luce # (Auto) (0.11-0.59) K/uL Eos # (Auto) (0-0.5) K/uL Baso # (Auto) (0-0.2) K/uL Immature Gran # (Auto) (0.00-0.02) K/uL Sodium (136-145) mmol/L Potassium (3.5-5.1) mmol/L Chloride (98-107) mmol/L Carbon Dioxide (21-32) mmol/L Anion Gap (3-11) BUN (6-23) mg/dl Creatinine (0.6-1.2) mg/dl Est Cr Clr Drug Dosing ml/min Est GFR ( Amer) ml/min Est GFR (Non-Af Amer) ml/min BUN/Creatinine Ratio (10-20) Glucose (70-99(Fasting)) mg/dl POC Glucose 155 H (70-99) mg/dl Lactate (0.4-2.0) mmol/L Calcium (8.5-10.1) mg/dl Phosphorus (2.5-4.9) mg/dl Magnesium (1.7-2.4) mg/dl Triglycerides (0-150) mg/dl Stl C. cayetanensis PCR Not Detected (NotDetected) Stool Rotavirus A PCR Not Detected (NotDetected) Stl Adenov F 40/41 PCR Not Detected (NotDetected) Stool Astrovirus (PCR) Not Detected (NotDetected) Stool Campylobacter PCR Not Detected (NotDetected) Stl C.difficile Tox A&B Negative Cdiff Toxin (Negative) Stl C. diff Tox A/B PCR C.diff Gene Detected A (NotDetected) Stool Cryptosporidium PCR Not Detected (NotDetected) Stl E.coli Shiga Tox PCR Not Detected (NotDetected) Stl Enterotoxigenic E PCR Not Detected (NotDetected) Stool EPEC (PCR) Not Detected (NotDetected) Stool EAEC (PCR) Not Detected (NotDetected) Stl E. histolytica PCR Not Detected (NotDetected) Stool Giardia Lamblia PCR Not Detected (NotDetected) Stool Salmonella PCR Not Detected (NotDetected) Stool Sapovirus (PCR) Not Detected (NotDetected) Stl P. shigelloides PCR Not Detected (NotDetected) Stl Shigella/EIEC PCR Not Detected (NotDetected) St Y.enterocolitica PCR Not Detected (NotDetected) Stool Vibrio (PCR) Not Detected (NotDetected) Stl Vibrio cholerae PCR Not Detected (NotDetected) Stl Norovirus GI/GII PCR Not Detected (NotDetected) PG Care Time/CCT Total # of Minutes Spent Total Time Spent with Patient: Total time spent is greater than 50% in coordination of care (as documented) at patient's floor/unit and/or counseling patient: Coding Level of Care Code 76371 Subseq Hosp Care Lvl 3 Diagnoses Abdominal pain, chronic, generalized R10.84; G89.29 Nausea and vomiting R11.2 Leukocytosis D72.829 Leukocytosis type: unspecified Colitis K52.9 Adrenal insufficiency E27.40 On total parenteral nutrition (TPN) Z78.[address] Z93.1 Severe protein-calorie malnutrition E43 (1) Leukocytosis Leukocytosis type: unspecified Qualified Code(s): D72.829 - Elevated white blood cell count, unspecified
[2021-11-01] MEDS: PANTOprazole 40 MG TAB PO SCH (18:17)
[2021-11-01] MEDS: FAMOTIDINE 20 MG TAB PO SCH ×2 (18:17→21:41)
[2021-11-01] MEDS: HYDROCORTISONE 10 MG TAB PO SCH ×2 (18:17)
[2021-11-01] MEDS ORDERED: DICYCLOMINE HCL 20 MG TAB PO STA (19:33)
[2021-11-01] MEDS ORDERED: SODIUM CHLORIDE 0.9% 1000ML 250 ML IV ONE (19:34)
[2021-11-01] MEDS ORDERED: SODIUM CHLORIDE 0.9% 500 ML IV SCH (19:45)
[2021-11-01] MEDS: HYDROCORTISONE SOD 100 MG in SYRINGE 0 ML IV SCH (19:57)
[2021-11-01] MEDS ORDERED: CENTRAL PN IV SCH (21:00)
[2021-11-01] MEDS: FEXOFENADINE HCL 180 MG TAB PO SCH (21:41)
[2021-11-01] MEDS: TPN RATE CHANGE SCH (23:17)
[2021-11-02] MEDS ORDERED: LIPIDS IV SCH
[2021-11-02] MEDS: [UNRECOGNIZED DRUG - REMARK] SCH ×2 (01:17→07:05)
[2021-11-02] MEDS: ONDANSETRON INJ 2 MG/ML 2 ML VIAL IV PRN ×3 (01:18→18:15)
[2021-11-02] MEDS: HYDROmorphone INJ 1 MG/ML SYRINGE IV PRN ×11 (01:18→23:23)
[2021-11-02] MEDS: PIPERACILLIN/TAZOBACTAM 3.375 GM in DEXTROSE 5% 100 ML IV SCH ×3 (01:18→18:16)
[2021-11-02] MEDS: HYDROCORTISONE SOD 100 MG in SYRINGE 0 ML IV SCH ×3 (03:35→18:15)
[2021-11-02] MEDS: LORazepam 0.5 MG in SYRINGE 0.25 ML IV PRN ×3 (05:33→21:12)
[2021-11-02 08:15] LABS: BUN Creatinine Ratio 21.7 (10-20); Bilirubin,Total 0.3 mg/dl (0.2-1.0); Calcium 8.1 mg/dl (8.5-10.1); Creatinine Clr Calc Pharmacy 102.6 ml/min; Est GFR (African American) 142.8 ml/min; Est GFR (Non-African American) 123.2 ml/min; Magnesium 2.3 mg/dl (1.7-2.4); Phosphorus 1.2 mg/dl (2.5-4.9); Potassium 4.2 mmol/L (3.5-5.1)
[2021-11-02 08:16] LABS: Total Protein 6.3 gm/dl (6.0-8.3)
[2021-11-02] MEDS ORDERED: GLUCAGON FOR INJ 1 MG VIAL SQ PRN (09:00)
[2021-11-02] MEDS ORDERED: GLUCOSE 10 TABS/TUBE PO PRN (09:00)
[2021-11-02] MEDS ORDERED: DEXTROSE 50% 50 ML SYRINGE IV PRN (09:00)
[2021-11-02] MEDS ORDERED: GLUCOSE 40% GEL 15 GM TUBE PO PRN (09:00)
[2021-11-02] MEDS ORDERED: CARBOHYDRATES FOR HYPOGLYCEMIA PO PRN (09:00)
[2021-11-02] MEDS ORDERED: SODIUM PHOSPHATE 3 MMOL/1 ML INFUSION IV STA (09:00)
[2021-11-02] MEDS ORDERED: SODIUM PHOSPHATE 21 MMOL in SODIUM CHLORIDE 0.9% 500 ML IV ONE (09:30)
[2021-11-02] MEDS: PANTOprazole 40 MG TAB PO SCH (09:49)
[2021-11-02] MEDS: FLUDROCORTISONE ACETATE 0.1 MG TAB PO SCH ×2 (09:49→16:43)
[2021-11-02] MEDS: FAMOTIDINE 20 MG TAB PO SCH ×2 (09:50→21:12)
[2021-11-02] MEDS: GABAPENTIN 250 MG/5 ML 470 ML BTL GT SCH ×3 (10:16→21:12)
[2021-11-02] MEDS ORDERED: INSULIN ASPART PER UNIT SC SCH (11:30)
--- NOTE | 2021-11-02 12:38 | Hospitalist Progress Note ---
Date of Service November 02, 2021 Assessment & Plan (1) Abdominal pain, chronic, generalized: Plan: 31yo female with complicated history to include SMAS s/p surgical repair, GI dysmotility, prior jejunal intussusception. Patient with ileostomy, G-tube in place. She is on chronic TPN and lipid infusions. Patient presents with acute episode of lower abdominal pain, nausea/vomiting. Workup concerning for leukocytosis with WBC=19.64, colitis noted on CT image. No intussusception. No perforation or obstruction. Procal, lactate normal Distal descending and prox sigmoid colitis on CT, did have some bloody mucoid discharge per rectum the day of admission which is unusual for her since getting her ileostomy DO not suspect intussusception at this time. Pt has a long h/o opioid use and has a very high tolerance for opioid medications-is currently receiving dilaudid 1mg IV q2h Has long history of chronic abdominal pain as well and says she was proven to have intussusception at [facility] on a barium study No obstruction on imaging and has ongoing ileostomy output, no blood. Continues to have constant nausea with some vomiting, now somewhat improved with hooking G-tube to suction, frequent IV ativan Says that IV antibiotics and TPN combined make her nauseated. Pain also makes her nauseated C. diff gene positive but toxin negative, otherwise stool PCR panel negative from ileostomy Lactate remains normal Afebrile WBC count now down to normal Nausea and abd pain somewhat improved 11/02 with starting stress dose steroids -Follow blood cultures-NGTD -Checked Fungitell - patient with leukocytosis, on chronic TPN with lipids- pending -follow CBC, CMP,Mag,Phos in AM and replace lytes as needed -continue Pain control with Dilaudid PRN and wean off as tolerated -Nausea control with Zofran PRN, IV ativan prn -continue NPO for now - patient's mother brought in home TPN -Continue Tramadol 50mg po BID PRN -Continue Tylenol 1000mg po q6 hours PRN -Continue Bentyl 20mg po q6 hours PRN -Continue Pepcid 20mg po BID -Continue Protonix 40mg po qAM -continue IV hydrocortisone 100mg IV q8h and hold po HC as she has been unable to tolerate (2) Nausea and vomiting: Plan: worsened by pain and certain medications, has known gut motility disorder Slightly improved now continue antiemetics as above keep NPO giving stress dose steroids (3) Hypophosphatemia: Plan: replace today with IV neutraphos follow level in AM (4) Flank pain: Plan: check bladder scan for PVR--> normal check Renal US for hydronephrosis advised to cut down on dilaudid to help with any possible urinary retention (5) Hyperglycemia: Plan: 2/2 IV HC start insulin sliding scale, accuchecks q6h while NPO (6) Colitis: Plan: Colitis mentioned on imaging. ?infectious, less likely ischemic -GI panel and C. diff as above -continue Zosyn 3.375gm IV q 8 hours-will need 7 day course -Monitor output -Pain control as above Appreciate GI consultation (7) Adrenal insufficiency: Plan: Blood pressure low normal Ongoing N/V, abd pain -hold Hydrocortisone 15mg po qAM and 10mg po q afternoon and continue IV hydrocortisone -Continue Florinef 0.2mg po qAM and 0.1mg po q PM if tolerated (8) On total parenteral nutrition (TPN): Plan: As above. Patient receives TPN infusion as well as separate Lipid infusion (done so to limit nausea). Her TPN is managed by Nutrition team at [facility]. -TPN from home to run tonight -Pharmacy assistance appreciated (9) Leukocytosis: Plan: now resolved, secondary to colitis and reactive to vomiting (10) Gastrostomy tube in place: Plan: exchanged last year from G-J to just G tube (11) Severe protein-calorie malnutrition: Plan: Severe protein-calorie malnutrition BMI 16 has gained 4 kg since starting TPN Continue TPN awaiting small bowel transplant Plan: Ppx - Low risk for DVT Code - Full Dispo - continued stay on medical Admission and Anticipated Discharge Date Admission Date: October 30, 2021 Subjective Pt started having bilateral flank pain last night and difficulty getting urine out at times. Still taking dilaudid 1mg q2 hrs. Nausea is slightly better today. Feels better after starting IV HC. Is urinating 700mL and 400mL today but feels like it's hard to get stream started. No hematuria Still same abd pain in lower abdomen but slightly better than before. Review of Systems Review of Systems: All systems reviewed & are unremarkable except as noted in HPI & below Physical Exam Constitutional: + thin and + underweight Eyes: + anicteric sclerae Neck: trachea midline, no thyromegaly Respiratory: normal respiratory effort, lungs clear to auscultation Cardiovascular: RRR, no murmur, no edema Chest (Breasts): Chest: normal inspection of chest Gastrointestinal (Abdomen): Inspection/Auscultation: normal bowel sounds; + abdomen abnormal to inspection (G tube and ileostomy bag in place with liquid) and abdomen not distended Percussion/Palpation: + abdomen tender (lower abd without guarding or rebound) and abdomen soft +bilat CVA tenderness Musculoskeletal: Extremities: extremities normal to inspection; no cyanosis and no clubbing Skin: no rashes, warm and dry Neurologic: moves all extremities and awake; no focal motor deficits Psychiatric: A+Ox3, euthymic affect Lymphatic: no lymphedema Results & Data Results & Data ([facility]) Vital Signs (Past 12 Hours) Vital Signs Temp Pulse Resp BP Pulse Ox 11/02/21 07:51 36.6 C 99 H 14 90/53 L 97 Laboratory Results 11/02/21 11/02/21 11/02/21 Range/Units 12:32 08:07 07:15 Sodium (136-145) mmol/L Potassium (3.5-5.1) mmol/L Chloride (98-107) mmol/L Carbon Dioxide (21-32) mmol/L Anion Gap (3-11) BUN (6-23) mg/dl Creatinine (0.6-1.2) mg/dl Est Cr Clr Drug Dosing ml/min Est GFR ( Amer) ml/min Est GFR (Non-Af Amer) ml/min BUN/Creatinine Ratio (10-20) Glucose (70-99(Fasting)) mg/dl POC Glucose 182 H 281 H (70-99) mg/dl Lactate (0.4-2.0) mmol/L Calcium (8.5-10.1) mg/dl Phosphorus (2.5-4.9) mg/dl Magnesium (1.7-2.4) mg/dl Total Bilirubin (0.2-1.0) mg/dl Direct Bilirubin (0-0.2) mg/dl AST (13-39) U/L ALT (7-52) U/L Alkaline Phosphatase (34-104) U/L Total Creatine Kinase 32 (26-192) U/L Total Protein (6.0-8.3) gm/dl Albumin (3.4-5.0) gm/dl 11/02/21 11/02/21 11/02/21 Range/Units 07:15 07:15 06:15 Sodium 135 L (136-145) mmol/L Potassium 4.2 (3.5-5.1) mmol/L Chloride 105 (98-107) mmol/L Carbon Dioxide 23 (21-32) mmol/L Anion Gap 7 (3-11) BUN 13 (6-23) mg/dl Creatinine 0.60 (0.6-1.2) mg/dl Est Cr Clr Drug Dosing 102.6 ml/min Est GFR ( Amer) 142.8 ml/min Est GFR (Non-Af Amer) 123.2 ml/min BUN/Creatinine Ratio 21.7 H (10-20) Glucose 241 H (70-99(Fasting)) mg/dl POC Glucose 210 H (70-99) mg/dl Lactate 1.2 (0.4-2.0) mmol/L Calcium 8.1 L (8.5-10.1) mg/dl Phosphorus 1.2 L* D (2.5-4.9) mg/dl Magnesium 2.3 (1.7-2.4) mg/dl Total Bilirubin 0.3 (0.2-1.0) mg/dl Direct Bilirubin 0.0 (0-0.2) mg/dl AST 22 (13-39) U/L ALT 58 H (7-52) U/L Alkaline Phosphatase 57 (34-104) U/L Total Creatine Kinase (26-192) U/L Total Protein 6.3 (6.0-8.3) gm/dl Albumin 4.0 (3.4-5.0) gm/dl PG Care Time/CCT Total # of Minutes Spent Total Time Spent with Patient: Total time spent is greater than 50% in coordination of care (as documented) at patient's floor/unit and/or counseling patient: Coding Level of Care Code 72874 Subseq Hosp Care Lvl 3 Diagnoses Abdominal pain, chronic, generalized R10.84; G89.29 Nausea and vomiting R11.2 Leukocytosis D72.829 Leukocytosis type: unspecified Colitis K52.9 Adrenal insufficiency E27.40 On total parenteral nutrition (TPN) Z78.[address] Z93.1 Severe protein-calorie malnutrition E43 Hypophosphatemia E83.39 Flank pain R10.9 Hyperglycemia R73.9 (1) Leukocytosis Leukocytosis type: unspecified Qualified Code(s): D72.829 - Elevated white blood cell count, unspecified
[2021-11-02] MEDS: INSULIN ASPART PER UNIT SC SCH ×2 (14:19→18:49)
[2021-11-02] MEDS: TPN RATE CHANGE SCH ×2 (14:20→22:37)
--- NOTE | 2021-11-02 14:55 | Ultrasound Report ---
RENAL ULTRASOUND CLINICAL HISTORY: Bilateral flank pain. Evaluate for hydronephrosis. COMPARISON STUDY: CT of the abdomen and pelvis October 30, 2021. TECHNIQUE: Sonography of the kidneys and the urinary bladder was performed. FINDINGS: Right kidney measures 9.8 cm in maximal dimension and the left measures 10.7 cm. There is n o hydronephrosis. Renal echogenicity, size and cortical thickness are normal. There is no renal mass or calculus. Bladder is unremarkable. Ureteral jets were visualized. IMPRESSION: Normal renal ultrasound. No hydronephrosis. ACT 112: Negative or not required by law. Electronically signed by: Ruperto Lopez M.D. 11/02/2021 2:53 PM
--- NOTE | 2021-11-02 15:46 | Gastroenterology Progress Note ---
Date of Service November 02, 2021 Assessment & Plan (1) Colitis: Plan: Colitis on CT--on abx at present--with Cdiff gene positive the broad spectrum abx but her at risk for reactivation of Cdiff. So would consider stopping Abx since remainder of stool cultures negative. abd pain--chronic slightly better at present. n/v--better on G tube to low intermittent suction intestinal dysmotility--supportive care Cdiff gene pos, toxin neg---probably carrier state at present. If GI symptoms worsen or fail to improve then would repeat to see if toxin positive, especially in light of Abx that were given. ICandido MD have spent 21 minutes of discrete time performing the activities of this visit which include but are not limited to review of the medical record, obtaining a history, physical exam, and entering information in the electronic record. Admission and Anticipated Discharge Date Admission Date: October 30, 2021 Subjective CC f/u abd pain HPI Father with patient for H and P. Abd pain and nausea slightlty better than admit. She states nausea better with G tube suction so that is used during the day working around oral meds. Stool for Cdiff gene pos but toxin negative. Stool output per ileostomy less than usual per patient secondary to not eating. ALT normal on admit and elevated today at 58. Pt complaining of back pain and renal u/s done looking for hydronephrosis but negative. Physical Exam Gastrointestinal (Abdomen): pos bs, soft, no guarding nor rebound, G tube and ileostomy site covered. Results & Data ([facility]) Vital Signs (Past 12 Hours) Vital Signs Temp Pulse Resp BP Pulse Ox 11/02/21 07:51 36.6 C 99 H 14 90/53 L 97
[2021-11-02] MEDS: CENTRAL PN IV SCH ×2 (16:25→21:13)
[2021-11-02] MEDS: FEXOFENADINE HCL 180 MG TAB PO SCH (21:12)
[2021-11-03] MEDS: LIPIDS IV SCH ×2 (00:12→14:23)
[2021-11-03] MEDS: INSULIN ASPART PER UNIT SC SCH ×4 (00:24→18:50)
[2021-11-03] MEDS: [UNRECOGNIZED DRUG - REMARK] SCH ×2 (01:37→06:32)
[2021-11-03] MEDS: HYDROmorphone INJ 1 MG/ML SYRINGE IV PRN ×9 (01:37→23:05)
[2021-11-03] MEDS: HYDROCORTISONE SOD 100 MG in SYRINGE 0 ML IV SCH ×2 (01:40→10:01)
[2021-11-03] MEDS: PIPERACILLIN/TAZOBACTAM 3.375 GM in DEXTROSE 5% 100 ML IV SCH ×3 (01:40→18:08)
[2021-11-03] MEDS: ONDANSETRON INJ 2 MG/ML 2 ML VIAL IV PRN ×3 (03:53→18:01)
[2021-11-03 08:06] LABS: Hematocrit (blood only) 31.3 % (37-47); Hemoglobin 10.3 g/dL (12.0-16.0); Mean Corpuscular Hemoglobin 31.5 pg (25-34); Mean Corpuscular Hgb Conc 32.9 g/dL (32-36); Mean Corpuscular Volume 95.7 fL (80-100); Mean Platelet Volume 10.9 fL (7.4-10.4); Platelet Count 273 K/uL (130-400); RDW Coefficient of Variation 11.4 % (11.5-14.5); RDW Standard Deviation 39.7 fL (36.4-46.3); Red Blood Count 3.27 M/uL (4.2-5.4); White Blood Count 19.09 K/uL (4.8-10.8)
[2021-11-03 08:19] LABS: Immature Granulocytes # (auto) 0.05 K/uL (0.00-0.02); Immature Granulocytes % (auto) 0.3 %; Lymphocytes # (auto) 0.27 K/uL (1.2-3.4); Lymphocytes % (auto) 1.4 %; Monocytes # (auto) 1.04 K/uL (0.11-0.59); Monocytes % (auto) 5.4 %; Neutrophils # (auto) 17.73 K/uL (1.4-6.5); Neutrophils % (auto) 92.9 %
[2021-11-03 08:25] LABS: Albumin Level 3.6 gm/dl (3.4-5.0); BUN Creatinine Ratio 23.3 (10-20); Bilirubin,Total 0.2 mg/dl (0.2-1.0); Calcium 7.9 mg/dl (8.5-10.1); Creatinine Clr Calc Pharmacy 104.8 ml/min; Est GFR (African American) 142.8 ml/min; Est GFR (Non-African American) 123.2 ml/min; Magnesium 2.3 mg/dl (1.7-2.4); Phosphorus 1.8 mg/dl (2.5-4.9); Potassium 3.9 mmol/L (3.5-5.1); Total Protein 5.7 gm/dl (6.0-8.3)
[2021-11-03] MEDS ORDERED: SODIUM PHOSPHATE 3 MMOL/1 ML INFUSION IV STA (09:22)
[2021-11-03] MEDS: FLUDROCORTISONE ACETATE 0.1 MG TAB PO SCH ×2 (09:41→17:31)
[2021-11-03] MEDS: FAMOTIDINE 20 MG TAB PO SCH ×2 (09:41→21:10)
[2021-11-03] MEDS: PANTOprazole 40 MG TAB PO SCH (09:42)
[2021-11-03] MEDS: GABAPENTIN 250 MG/5 ML 470 ML BTL GT SCH ×3 (09:42→21:11)
[2021-11-03] MEDS ORDERED: SODIUM PHOSPHATE 15 MMOL in SODIUM CHLORIDE 0.9% 250 ML IV ONE (10:00)
[2021-11-03] MEDS: INSULIN GLARGINE SOLOSTAR 100 UNITS/ML 3 ML PEN SC SCH (11:12)
[2021-11-03] MEDS: LORazepam 0.5 MG in SYRINGE 0.25 ML IV PRN ×2 (12:05→21:50)
--- NOTE | 2021-11-03 12:17 | Hospitalist Progress Note ---
Date of Service November 03, 2021 Assessment & Plan (1) Abdominal pain, chronic, generalized: Plan: 31yo female with complicated history to include SMAS s/p surgical repair, GI dysmotility, prior jejunal intussusception. Patient with ileostomy, G-tube in place. She is on chronic TPN and lipid infusions. Patient presents with acute episode of lower abdominal pain, nausea/vomiting. Workup concerning for leukocytosis with WBC=19.64, colitis noted on CT image. No intussusception. No perforation or obstruction. Procal, lactate normal Distal descending and prox sigmoid colitis on CT, did have some bloody mucoid discharge per rectum the day of admission which is unusual for her since getting her ileostomy DO not suspect intussusception at this time. Pt has a long h/o opioid use and has a very high tolerance for opioid medications-is currently receiving dilaudid 1mg IV q2h and continues to do so around the clock Has long history of chronic abdominal pain as well and says she was proven to have intussusception at [facility] on a barium study No obstruction on imaging and has ongoing ileostomy output, no blood. Continues to have constant nausea but now vomiting is resolved with hooking G- tube to suction, frequent IV ativan Says that IV antibiotics and TPN combined make her nauseated. Pain also makes her nauseated C. diff gene positive but toxin negative, otherwise stool PCR panel negative from ileostomy Lactate remains normal Afebrile WBC count was down to normal but now up again from corticosteroid effect Nausea and abd pain somewhat improved 11/02 with starting stress dose steroids -Follow blood cultures-NGTD -Checked Fungitell - patient with leukocytosis, on chronic TPN with lipids- pending -follow CBC, CMP,Mag,Phos in AM and replace lytes as needed -continue Pain control with Dilaudid PRN and wean off as tolerated-strongly encouraged weaning down on Dilaudid today as there is no real reason she continues to require it except she senses pain with her gut dysmotility which I reminded her is only going to be worsened by opioid effect -Nausea control with Zofran PRN, IV ativan prn -continue NPO for now - patient's mother brought in home TPN. Can have crackers as tolerated -Continue Tramadol 50mg po BID PRN -Continue Tylenol 1000mg po q6 hours PRN -Continue Bentyl 20mg po q6 hours PRN -Continue Pepcid 20mg po BID -Continue Protonix 40mg po qAM -continue IV hydrocortisone but wean down to 50mg IV q8h and hold po HC as she h as been unable to tolerate (2) Nausea and vomiting: Plan: worsened by pain and certain medications, has known gut motility disorder Slightly improved now continue antiemetics as above keep NPO giving stress dose steroids (3) Hypophosphatemia: Plan: replace again today with IV neutraphos follow level in AM (4) Flank pain: Plan: checked bladder scan for PVR--> normal checked Renal US for hydronephrosis-normal advised to cut down on dilaudid to help with any possible urinary retention improved today (5) Hyperglycemia: Plan: 2/2 IV HC continues increase dose of insulin sliding scale, and add Lantus 4 units once daily -continue accuchecks q6h while NPO (6) Colitis: Plan: Colitis mentioned on imaging. ?infectious, less likely ischemic -GI panel and C. diff as above -continue Zosyn 3.375gm IV q 8 hours-given that stool studies normal, and that Zosyn causes her to have worsening nausea, recommend shortened course of 5 days. GI recommends stopping abx altogether. Last day of Tx will be 11/04 -Monitor output -Pain control as above Appreciate GI consultation (7) Adrenal insufficiency: Plan: Blood pressure low normal but better with IV HC Ongoing N/V, abd pain -hold Hydrocortisone 15mg po qAM and 10mg po q afternoon and continue IV hydrocortisone, wean down -Continue Florinef 0.2mg po qAM and 0.1mg po q PM if tolerated (8) On total parenteral nutrition (TPN): Plan: As above. Patient receives TPN infusion as well as separate Lipid infusion (done so to limit nausea). Her TPN is managed by Nutrition team at [facility] [place]. -TPN from home to run -Pharmacy assistance appreciated (9) Leukocytosis: Plan: secondary to colitis and reactive to vomiting, was resolved, now back up 2/2 steroid use (10) Gastrostomy tube in place: Plan: exchanged last year from G-J to just G tube as thought was that her J tube was causing intussception (11) Severe protein-calorie malnutrition: Plan: Severe protein-calorie malnutrition BMI 16 has gained 4 kg since starting TPN Continue TPN awaiting small bowel transplant Plan: Ppx - Low risk for DVT Code - Full Dispo - continued stay on medical, hoping to start weaning off Dilaudid soon. Usually has very prolonged hospitalizations due to need for pain meds and nausea meds Admission and Anticipated Discharge Date Admission Date: October 30, 2021 Subjective Pt reports feeling a little better today but still has ongoing nausea that is "pretty bad" especially when receiving her TPN. Still taking IV dilaudid q2h but says that "if i could space it out, I definitely will." Still some occasional bilat flank pain but not as significant as before. Discussed normal renal US and likely pain from full bladder and dilaudid making starting urinary stream worse. Advised decreasing dilaudid use. Has some output in ostomy but not taking any po. Has some G tube drainage in suction canister. Mom wants to know if pt can go outside to visit with her dog later. Review of Systems Review of Systems: All systems reviewed & are unremarkable except as noted in HPI & below Physical Exam Constitutional: + thin and + underweight Eyes: + anicteric sclerae Neck: trachea midline, no thyromegaly Respiratory: normal respiratory effort, lungs clear to auscultation Cardiovascular: RRR, no murmur, no edema Chest (Breasts): Chest: normal inspection of chest Gastrointestinal (Abdomen): Inspection/Auscultation: normal bowel sounds; + abdomen abnormal to inspection (G tube and ileostomy bag in place with liquid) and abdomen not distended Percussion/Palpation: + abdomen tender (lower abd without guarding or rebound) and abdomen soft Musculoskeletal: Extremities: extremities normal to inspection; no cyanosis and no clubbing Skin: no rashes, warm and dry Neurologic: moves all extremities and awake; no focal motor deficits Psychiatric: Orientation: alert and oriented x 3 Affect: + flat affect Lymphatic: no lymphedema Results & Data Results & Data ([facility]) Vital Signs (Past 12 Hours) Vital Signs Temp Pulse Resp BP Pulse Ox 11/03/21 07:26 36.9 C 104 H 12 103/66 95 Laboratory Results 11/03/21 11/03/21 11/03/21 Range/Units 12:12 07:09 07:09 WBC 19.09 H (4.8-10.8) K/uL RBC 3.27 L (4.2-5.4) M/uL Hgb 10.3 L (12.0-16.0) g/dL Hct 31.3 L (37-47) % MCV 95.7 (80-100) fL MCH 31.5 (25-34) pg MCHC 32.9 (32-36) g/dL RDW Std Deviation 39.7 (36.4-46.3) fL RDW Coeff of Tim 11.4 L (11.5-14.5) % Plt Count 273 (130-400) K/uL MPV 10.9 H (7.4-10.4) fL Immature Gran % (Auto) 0.3 % Neut % (Auto) 92.9 % Lymph % (Auto) 1.4 % Spencer % (Auto) 5.4 % Eos % (Auto) 0.0 % Baso % (Auto) 0.0 % Neut # (Auto) 17.73 H (1.4-6.5) K/uL Lymph # (Auto) 0.27 L (1.2-3.4) K/uL Spencer # (Auto) 1.04 H (0.11-0.59) K/uL Eos # (Auto) 0.00 (0-0.5) K/uL Baso # (Auto) 0.00 (0-0.2) K/uL Immature Gran # (Auto) 0.05 H (0.00-0.02) K/uL Sodium 139 (136-145) mmol/L Potassium 3.9 (3.5-5.1) mmol/L Chloride 107 (98-107) mmol/L Carbon Dioxide 26 (21-32) mmol/L Anion Gap 6 (3-11) BUN 14 (6-23) mg/dl Creatinine 0.60 (0.6-1.2) mg/dl Est Cr Clr Drug Dosing 104.8 ml/min Est GFR ( Amer) 142.8 ml/min Est GFR (Non-Af Amer) 123.2 ml/min BUN/Creatinine Ratio 23.3 H (10-20) Glucose 206 H (70-99(Fasting)) mg/dl POC Glucose 161 H (70-99) mg/dl Calcium 7.9 L (8.5-10.1) mg/dl Phosphorus 1.8 L (2.5-4.9) mg/dl Magnesium 2.3 (1.7-2.4) mg/dl Total Bilirubin 0.2 (0.2-1.0) mg/dl Direct Bilirubin 0.0 (0-0.2) mg/dl AST 40 H (13-39) U/L ALT 60 H (7-52) U/L Alkaline Phosphatase 50 (34-104) U/L Total Protein 5.7 L (6.0-8.3) gm/dl Albumin 3.6 (3.4-5.0) gm/dl 11/03/21 11/03/21 11/02/21 Range/Units 06:17 00:12 18:12 WBC (4.8-10.8) K/uL RBC (4.2-5.4) M/uL Hgb (12.0-16.0) g/dL Hct (37-47) % MCV (80-100) fL MCH (25-34) pg MCHC (32-36) g/dL RDW Std Deviation (36.4-46.3) fL RDW Coeff of Tim (11.5-14.5) % Plt Count (130-400) K/uL MPV (7.4-10.4) fL Immature Gran % (Auto) % Neut % (Auto) % Lymph % (Auto) % Spencer % (Auto) % Eos % (Auto) % Baso % (Auto) % Neut # (Auto) (1.4-6.5) K/uL Lymph # (Auto) (1.2-3.4) K/uL Spencer # (Auto) (0.11-0.59) K/uL Eos # (Auto) (0-0.5) K/uL Baso # (Auto) (0-0.2) K/uL Immature Gran # (Auto) (0.00-0.02) K/uL Sodium (136-145) mmol/L Potassium (3.5-5.1) mmol/L Chloride (98-107) mmol/L Carbon Dioxide (21-32) mmol/L Anion Gap (3-11) BUN (6-23) mg/dl Creatinine (0.6-1.2) mg/dl Est Cr Clr Drug Dosing ml/min Est GFR ( Amer) ml/min Est GFR (Non-Af Amer) ml/min BUN/Creatinine Ratio (10-20) Glucose (70-99(Fasting)) mg/dl POC Glucose 228 H 175 H 123 H (70-99) mg/dl Calcium (8.5-10.1) mg/dl Phosphorus (2.5-4.9) mg/dl Magnesium (1.7-2.4) mg/dl Total Bilirubin (0.2-1.0) mg/dl Direct Bilirubin (0-0.2) mg/dl AST (13-39) U/L ALT (7-52) U/L Alkaline Phosphatase (34-104) U/L Total Protein (6.0-8.3) gm/dl Albumin (3.4-5.0) gm/dl 11/02/21 Range/Units 12:32 WBC (4.8-10.8) K/uL RBC (4.2-5.4) M/uL Hgb (12.0-16.0) g/dL Hct (37-47) % MCV (80-100) fL MCH (25-34) pg MCHC (32-36) g/dL RDW Std Deviation (36.4-46.3) fL RDW Coeff of Tim (11.5-14.5) % Plt Count (130-400) K/uL MPV (7.4-10.4) fL Immature Gran % (Auto) % Neut % (Auto) % Lymph % (Auto) % Spencer % (Auto) % Eos % (Auto) % Baso % (Auto) % Neut # (Auto) (1.4-6.5) K/uL Lymph # (Auto) (1.2-3.4) K/uL Spencer # (Auto) (0.11-0.59) K/uL Eos # (Auto) (0-0.5) K/uL Baso # (Auto) (0-0.2) K/uL Immature Gran # (Auto) (0.00-0.02) K/uL Sodium (136-145) mmol/L Potassium (3.5-5.1) mmol/L Chloride (98-107) mmol/L Carbon Dioxide (21-32) mmol/L Anion Gap (3-11) BUN (6-23) mg/dl Creatinine (0.6-1.2) mg/dl Est Cr Clr Drug Dosing ml/min Est GFR ( Amer) ml/min Est GFR (Non-Af Amer) ml/min BUN/Creatinine Ratio (10-20) Glucose (70-99(Fasting)) mg/dl POC Glucose 182 H (70-99) mg/dl Calcium (8.5-10.1) mg/dl Phosphorus (2.5-4.9) mg/dl Magnesium (1.7-2.4) mg/dl Total Bilirubin (0.2-1.0) mg/dl Direct Bilirubin (0-0.2) mg/dl AST (13-39) U/L ALT (7-52) U/L Alkaline Phosphatase (34-104) U/L Total Protein (6.0-8.3) gm/dl Albumin (3.4-5.0) gm/dl PG Care Time/CCT Total # of Minutes Spent Total Time Spent with Patient: Total time spent is greater than 50% in coordination of care (as documented) at patient's floor/unit and/or counseling patient: Coding Level of Care Code 35715 Subseq Hosp Care Lvl 3 Diagnoses Abdominal pain, chronic, generalized R10.84; G89.29 Nausea and vomiting R11.2 Hypophosphatemia E83.39 Flank pain R10.9 Hyperglycemia R73.9 Colitis K52.9 Adrenal insufficiency E27.40 On total parenteral nutrition (TPN) Z78.9 Leukocytosis D72.829 Leukocytosis type: unspecified Gastrostomy tube in place Z93.1 Severe protein-calorie malnutrition E43 (1) Leukocytosis Leukocytosis type: unspecified Qualified Code(s): D72.829 - Elevated white blood cell count, unspecified
[2021-11-03] MEDS: TPN RATE CHANGE SCH ×3 (13:46→22:59)
[2021-11-03] MEDS: CENTRAL PN IV SCH (14:50)
--- NOTE | 2021-11-03 17:35 | Gastroenterology Progress Note ---
Date of Service November 03, 2021 Assessment & Plan (1) Abdominal pain, chronic, generalized: Plan: Went to patients room and informed by nursing patient was outside the building. Reviewed chart but patient not seen. Will see on rounds tomorrow. Admission and Anticipated Discharge Date Admission Date: October 30, 2021 Results & Data ([facility]) Vital Signs (Past 12 Hours) Vital Signs Temp Pulse Resp BP Pulse Ox 11/03/21 16:31 36.5 C 106 H 12 106/71 100 11/03/21 07:26 36.9 C 104 H 12 103/66 95
[2021-11-03] MEDS: HYDROCORTISONE SOD 50 MG in SYRINGE 0 ML IV SCH (18:00)
[2021-11-03 18:17] LABS: Fungitell (1-3)-B-D-Glucan <31 pg/mL
[2021-11-03] MEDS ORDERED: CENTRAL PN IV SCH ×2 (21:00)
[2021-11-03] MEDS: FEXOFENADINE HCL 180 MG TAB PO SCH (21:10)
[2021-11-04] MEDS ORDERED: LIPIDS IV SCH
[2021-11-04] MEDS: ONDANSETRON INJ 2 MG/ML 2 ML VIAL IV PRN ×3 (00:01→21:20)
[2021-11-04] MEDS: INSULIN ASPART PER UNIT SC SCH ×4 (00:22→18:22)
[2021-11-04] MEDS: [UNRECOGNIZED DRUG - REMARK] SCH ×2 (01:06→06:35)
[2021-11-04] MEDS: HYDROmorphone INJ 1 MG/ML SYRINGE IV PRN ×9 (01:13→22:38)
[2021-11-04] MEDS: HYDROCORTISONE SOD 50 MG in SYRINGE 0 ML IV SCH ×3 (01:14→18:07)
[2021-11-04] MEDS: PIPERACILLIN/TAZOBACTAM 3.375 GM in DEXTROSE 5% 100 ML IV SCH (01:14)
[2021-11-04] MEDS: LORazepam 0.5 MG in SYRINGE 0.25 ML IV PRN ×2 (04:14→12:26)
--- NOTE | 2021-11-04 08:57 | Gastroenterology Progress Note ---
Date of Service November 04, 2021 Assessment & Plan (1) Abdominal pain, chronic, generalized: Plan: Colitis on CT--on abx at present--with Cdiff gene positive the broad spectrum abx but her at risk for reactivation of Cdiff. So would consider stopping Abx since remainder of stool cultures negative. abd pain--chronic slightly better at present. n/v--better Monica tube to low intermittent suction intestinal dysmotility--supportive care Cdiff gene pos, toxin neg---probably carrier state at present. If GI symptoms worsen or fail to improve then would repeat to see if toxin positive, especially in light of Abx that were given. Complicated GI history and follows with GI at [facility] for possible intestinal transplant Case reviewed with Dr. Fernández. Please refer to supervising physician addendum for further recommendations. I have spent 20 minutes of discrete time performing the activities of this visit which include but are not limited to review of the medical record, obtaining a history, physical exam, and entering information in the electronic record. (2) Colitis: (3) Severe protein-calorie malnutrition: (4) Gastrostomy tube in place: Admission and Anticipated Discharge Date Admission Date: October 30, 2021 Supervising Physician Co-Signing Physician Notes I have seen and examined the patient. I agree with note above by YULISSA Lee except as noted below. HPI Abd pain and n/v somewhat better. Still putting G tube to suction periodically. LFTS worse with AST 58 and ALT 119 PE Abdomen pos bs, soft, no guarding nor rebound A/P elevated LFTS --may be from Zosyn which was stopped today, were normal on admit chronic abd pain-improved, continue supportive care n/v improved, continue supportive care. As the supervising physician, I , Candido Fernández MD have spent 16 minutes of discrete time performing the activities of this visit which include but not limited to review of the medical records, obtaining a history, physical exam and entering information in the electronic record. YULISSA Lee has reported spending 20 minutes of discrete time with the activities of this visit. Subjective Patient awake alert and oriented this morning. Her mother at bedside. Mornings are typically the worst time of the day for her. She is having some increased abdominal pain this morning. States overall she is feeling somewhat better. She had tolerated some oral intake yesterday continues to have to bend or drain feeding tube oral intake. Reports that transplant evaluation in [place] when okay. States unfortunately her bone density was quite low and she has to begin treatment for that. She has an appointment via telehealth to discuss that today. She meets with GI nutrition at the end of December. She continues to have weight gain. She will be reevaluated by the GI [facility] transplant team after cleared by GI nutrition. Review of Systems Review of Systems: All systems reviewed & are unremarkable except as noted in Subjective Physical Exam Gastrointestinal (Abdomen): pos bs, soft, no guarding nor rebound, G tube and ileostomy site covered. Results & Data ([facility]) Vital Signs (Past 12 Hours) Vital Signs Temp Pulse Resp BP Pulse Ox 11/04/21 07:56 36.9 C 96 H 16 94/62 L 96 11/04/21 00:08 36.8 C 82 15 110/73 98 Laboratory Results Laboratory Results - last 24 hr 10/31/21 11/03/21 11/03/21 04:03 12:12 17:58 WBC RBC Hgb Hct MCV MCH MCHC Plt Count Sodium Potassium Chloride Carbon Dioxide Anion Gap BUN Creatinine Est Cr Clr Drug Dosing Est GFR ( Amer) Est GFR (Non-Af Amer) BUN/Creatinine Ratio Glucose POC Glucose 161 H 102 H Calcium Phosphorus Magnesium Total Bilirubin AST ALT Alkaline Phosphatase Total Protein Albumin Globulin Albumin/Globulin Ratio Beta-(1,3)-D-Glucan <31 B-(1,3)-D-Glucan Intrp NEGATIVE 11/04/21 11/04/21 11/04/21 00:04 06:05 08:29 WBC Pending RBC Pending Hgb Pending Hct Pending MCV Pending MCH Pending MCHC Pending Plt Count Pending Sodium Potassium Chloride Carbon Dioxide Anion Gap BUN Creatinine Est Cr Clr Drug Dosing Est GFR ( Amer) Est GFR (Non-Af Amer) BUN/Creatinine Ratio Glucose POC Glucose 115 H 165 H Calcium Phosphorus Magnesium Total Bilirubin AST ALT Alkaline Phosphatase Total Protein Albumin Globulin Albumin/Globulin Ratio Beta-(1,3)-D-Glucan B-(1,3)-D-Glucan Intrp 11/04/21 08:29 WBC RBC Hgb Hct MCV MCH MCHC Plt Count Sodium Pending Potassium Pending Chloride Pending Carbon Dioxide Pending Anion Gap Pending BUN Pending Creatinine Pending Est Cr Clr Drug Dosing Pending Est GFR ( Amer) Pending Est GFR (Non-Af Amer) Pending BUN/Creatinine Ratio Pending Glucose Pending POC Glucose Calcium Pending Phosphorus Pending Magnesium Pending Total Bilirubin Pending AST Pending ALT Pending Alkaline Phosphatase Pending Total Protein Pending Albumin Pending Globulin Pending Albumin/Globulin Ratio Pending Beta-(1,3)-D-Glucan B-(1,3)-D-Glucan Intrp
[2021-11-04 08:58] LABS: Basophils # (auto) 0.01 K/uL (0-0.2); Basophils % (auto) 0.1 %; Hematocrit (blood only) 33.2 % (37-47); Hemoglobin 11.2 g/dL (12.0-16.0); Immature Granulocytes # (auto) 0.09 K/uL (0.00-0.02); Immature Granulocytes % (auto) 0.9 %; Lymphocytes # (auto) 0.67 K/uL (1.2-3.4); Lymphocytes % (auto) 6.7 %; Mean Corpuscular Hemoglobin 33.2 pg (25-34); Mean Corpuscular Hgb Conc 33.7 g/dL (32-36); Mean Corpuscular Volume 98.5 fL (80-100); Mean Platelet Volume 10.8 fL (7.4-10.4); Monocytes # (auto) 1.02 K/uL (0.11-0.59); Monocytes % (auto) 10.1 %; Neutrophils # (auto) 8.28 K/uL (1.4-6.5); Neutrophils % (auto) 82.2 %; Platelet Count 282 K/uL (130-400); RDW Coefficient of Variation 11.5 % (11.5-14.5); RDW Standard Deviation 40.9 fL (36.4-46.3); Red Blood Count 3.37 M/uL (4.2-5.4); White Blood Count 10.07 K/uL (4.8-10.8)
[2021-11-04 09:17] LABS: Albumin Globulin Ratio 1.6 (0.9-2); Albumin Level 3.7 gm/dl (3.4-5.0); BUN Creatinine Ratio 24.2 (10-20); Bilirubin,Total 0.3 mg/dl (0.2-1.0); Calcium 8.4 mg/dl (8.5-10.1); Creatinine Clr Calc Pharmacy 102.7 ml/min; Est GFR (African American) 141.2 ml/min; Est GFR (Non-African American) 121.9 ml/min; Globulin 2.3 gm/dl (2.5-4.0); Magnesium 2.3 mg/dl (1.7-2.4); Phosphorus 3.2 mg/dl (2.5-4.9); Potassium 4.1 mmol/L (3.5-5.1)
[2021-11-04] MEDS: FAMOTIDINE 20 MG TAB PO SCH ×2 (09:33→20:30)
[2021-11-04] MEDS: FLUDROCORTISONE ACETATE 0.1 MG TAB PO SCH ×2 (09:34→17:16)
[2021-11-04] MEDS: PANTOprazole 40 MG TAB PO SCH (09:34)
[2021-11-04] MEDS: GABAPENTIN 250 MG/5 ML 470 ML BTL GT SCH ×3 (09:42→20:40)
[2021-11-04] MEDS: INSULIN GLARGINE SOLOSTAR 100 UNITS/ML 3 ML PEN SC SCH (10:02)
--- NOTE | 2021-11-04 13:13 | Hospitalist Progress Note ---
Date of Service November 04, 2021 Assessment & Plan (1) Abdominal pain, chronic, generalized: Plan: 31yo female with complicated history to include SMAS s/p surgical repair, GI dysmotility, prior jejunal intussusception. Patient with ileostomy, G-tube in place. She is on chronic TPN and lipid infusions. Patient presents with acute episode of lower abdominal pain, nausea/vomiting. Workup concerning for leukocytosis with WBC=19.64, colitis noted on CT image. No intussusception. No perforation or obstruction. Procal, lactate normal Distal descending and prox sigmoid colitis on CT, did have some bloody mucoid discharge per rectum the day of admission which is unusual for her since getting her ileostomy DO not suspect intussusception at this time. Pt has a long h/o opioid use and has a very high tolerance for opioid medications-is currently receiving dilaudid 1mg IV q2h and continues to do so around the clock but pain is improving now on 11/04 and she is trying to reduce the frequency of Dilaudid use Has long history of chronic abdominal pain as well and says she was proven to have intussusception at [facility] on a barium study No obstruction on imaging and has ongoing ileostomy output, no blood. Continued to have constant nausea but now vomiting is resolved with hooking G- tube to suction, frequent IV ativan Says that IV antibiotics and TPN combined make her nauseated. Pain also makes her nauseated Nausea is improved on 11/04 C. diff gene positive but toxin negative, otherwise stool PCR panel negative from ileostomy Lactate remains normal Afebrile Blood cultures-no growth to date Fungitell negative WBC count was down to normal but then up again from corticosteroid effect -Follow blood cultures-NGTD -follow CBC, CMP,Mag,Phos in AM and replace lytes as needed-no electrolyte replacement needed today -continue Pain control with Dilaudid PRN and wean off as tolerated-again strongly encouraged weaning down on Dilaudid today as there is no real reason she continues to require it except she senses pain with her gut dysmotility which I reminded her is only going to be worsened by opioid effect -Continue nausea control with Zofran PRN, IV ativan prn. Able to discontinue suction attached to G-tube periodically --Continue home TPN. Can have crackers as tolerated and advance diet to clear liquids today -Continue Pepcid 20mg po BID -Continue Protonix 40mg po qAM -continue IV hydrocortisone but wean down to 25mg IV q8h starting this evening and then likely discontinue tomorrow once tolerating p.o. hydrocortisone -Restart home p.o. hydrocortisone tomorrow morning as she feels she will be able to tolerate pills (2) Nausea and vomiting: Plan: worsened by pain and certain medications, has known gut motility disorder Seems to be much improved now Has chronic nausea continue antiemetics as above Advance to clears as tolerated, can have crackers giving stress dose steroids -Wean off G-tube suction as tolerated (3) Hypophosphatemia: Plan: Replaced and resolved follow level in AM (4) Flank pain: Plan: checked bladder scan for PVR--> normal checked Renal US for hydronephrosis-normal advised to cut down on dilaudid to help with any possible urinary retention Now much improved (5) Hyperglycemia: Plan: 2/2 IV HC continues but is improved with decreasing doses of hydrocortisone continue Lantus 4 units once daily and NovoLog sliding scale -continue accuchecks q6h while NPO (6) Colitis: Plan: Colitis mentioned on imaging. ?infectious, less likely ischemic -GI panel and C. diff as above -Received 5 days of Zosyn 3.375gm IV q 8 hours-given that stool studies normal, and that Zosyn causes her to have worsening nausea, recommend shortened course of 5 days. GI recommends stopping abx altogether. -Monitor output -Pain control as above Appreciate GI consultation (7) Adrenal insufficiency: Plan: Blood pressure low normal but better with IV HC stress dose steroids Ongoing N/V, abd pain -Restart hydrocortisone 15mg po qAM and 10mg po q afternoon tomorrow -Weaning down IV hydrocortisone as above -Continue Florinef 0.2mg po qAM and 0.1mg po q PM if tolerated (8) On total parenteral nutrition (TPN): Plan: As above. Patient receives TPN infusion as well as separate Lipid infusion (done so to limit nausea). [place] [facility] [place] to run -Pharmacy assistance appreciated (9) Leukocytosis: Plan: secondary to colitis and reactive to vomiting, was resolved, then back up 2/2 steroid use (10) Gastrostomy tube in place: Plan: exchanged last year from G-J to just G tube as thought was that her J tube was causing intussception Has ileostomy-was placed due to severe got most tail of the to reduce transit time (11) Severe protein-calorie malnutrition: Plan: Severe protein-calorie malnutrition BMI 16 has gained 4 kg since starting TPN Continue TPN awaiting small bowel transplant at [facility] Plan: Ppx - Low risk for DVT Code - Full Dispo - continued stay on medical, continue to try weaning off Dilaudid as discussed with patient Usually has very prolonged hospitalizations due to need for pain meds and nausea meds Admission and Anticipated Discharge Date Admission Date: October 30, 2021 Subjective Patient finally starting to feel better today. Pain is better controlled and nausea is improved. She has output in her ostomy and was off of her G-tube suction for several hours today without much nausea. She was able to eat some crackers last night. Flank pain is pretty much resolved. She is able to get her urine out better today and has been able to space out her Dilaudid doses. Review of Systems Review of Systems: All systems reviewed & are unremarkable except as noted in HPI & below Physical Exam Constitutional: + thin and + underweight Eyes: + anicteric sclerae ENMT: external ear and nose normal, oropharynx normal Neck: trachea midline, no thyromegaly Respiratory: normal respiratory effort, lungs clear to auscultation Cardiovascular: RRR, no murmur, no edema Chest (Breasts): Chest: normal inspection of chest Gastrointestinal (Abdomen): Inspection/Auscultation: normal bowel sounds; + abdomen abnormal to inspection (G tube and ileostomy bag in place with liquid) and abdomen not distended Percussion/Palpation: + abdomen tender (lower abd without guarding or rebound) and abdomen soft Musculoskeletal: Extremities: extremities normal to inspection; no cyanosis and no clubbing Skin: no rashes, warm and dry Neurologic: moves all extremities and awake; no focal motor deficits Psychiatric: A+Ox3, euthymic affect Lymphatic: no lymphedema Results & Data Results & Data ([facility]) Vital Signs (Past 12 Hours) Vital Signs Temp Pulse Resp BP Pulse Ox 11/04/21 07:56 36.9 C 96 H 16 94/62 L 96 Laboratory Results 11/04/21 11/04/21 11/04/21 Range/Units 17:47 12:05 08:29 WBC (4.8-10.8) K/uL RBC (4.2-5.4) M/uL Hgb (12.0-16.0) g/dL Hct (37-47) % MCV (80-100) fL MCH (25-34) pg MCHC (32-36) g/dL RDW Std Deviation (36.4-46.3) fL RDW Coeff of Tim (11.5-14.5) % Plt Count (130-400) K/uL MPV (7.4-10.4) fL Immature Gran % (Auto) % Neut % (Auto) % Lymph % (Auto) % [place] % (Auto) % Eos % (Auto) % Baso % (Auto) % Neut # (Auto) (1.4-6.5) K/uL Lymph # (Auto) (1.2-3.4) K/uL [place] # (Auto) (0.11-0.59) K/uL Eos # (Auto) (0-0.5) K/uL Baso # (Auto) (0-0.2) K/uL Immature Gran # (Auto) (0.00-0.02) K/uL Sodium 142 (136-145) mmol/L Potassium 4.1 (3.5-5.1) mmol/L Chloride 109 H (98-107) mmol/L Carbon Dioxide 26 (21-32) mmol/L Anion Gap 7 (3-11) BUN 15 (6-23) mg/dl Creatinine 0.62 (0.6-1.2) mg/dl Est Cr Clr Drug Dosing 102.7 ml/min Est GFR ( Amer) 141.2 ml/min Est GFR (Non-Af Amer) 121.9 ml/min BUN/Creatinine Ratio 24.2 H (10-20) Glucose 118 H (70-99(Fasting)) mg/dl POC Glucose 109 H 154 H (70-99) mg/dl Calcium 8.4 L (8.5-10.1) mg/dl Phosphorus 3.2 D (2.5-4.9) mg/dl Magnesium 2.3 (1.7-2.4) mg/dl Total Bilirubin 0.3 (0.2-1.0) mg/dl AST 58 H (13-39) U/L ALT 119 H (7-52) U/L Alkaline Phosphatase 50 (34-104) U/L Total Protein 6.0 (6.0-8.3) gm/dl Albumin 3.7 (3.4-5.0) gm/dl Globulin 2.3 L (2.5-4.0) gm/dl Albumin/Globulin Ratio 1.6 (0.9-2) 11/04/21 11/04/21 11/04/21 Range/Units 08:29 06:05 00:04 WBC 10.07 (4.8-10.8) K/uL RBC 3.37 L (4.2-5.4) M/uL Hgb 11.2 L (12.0-16.0) g/dL Hct 33.2 L (37-47) % MCV 98.5 (80-100) fL MCH 33.2 (25-34) pg MCHC 33.7 (32-36) g/dL RDW Std Deviation 40.9 (36.4-46.3) fL RDW Coeff of Tim 11.5 (11.5-14.5) % Plt Count 282 (130-400) K/uL MPV 10.8 H (7.4-10.4) fL Immature Gran % (Auto) 0.9 % Neut % (Auto) 82.2 % Lymph % (Auto) 6.7 % [place] % (Auto) 10.1 % Eos % (Auto) 0.0 % Baso % (Auto) 0.1 % Neut # (Auto) 8.28 H (1.4-6.5) K/uL Lymph # (Auto) 0.67 L (1.2-3.4) K/uL [place] # (Auto) 1.02 H (0.11-0.59) K/uL Eos # (Auto) 0.00 (0-0.5) K/uL Baso # (Auto) 0.01 (0-0.2) K/uL Immature Gran # (Auto) 0.09 H (0.00-0.02) K/uL Sodium (136-145) mmol/L Potassium (3.5-5.1) mmol/L Chloride (98-107) mmol/L Carbon Dioxide (21-32) mmol/L Anion Gap (3-11) BUN (6-23) mg/dl Creatinine (0.6-1.2) mg/dl Est Cr Clr Drug Dosing ml/min Est GFR ( Amer) ml/min Est GFR (Non-Af Amer) ml/min BUN/Creatinine Ratio (10-20) Glucose (70-99(Fasting)) mg/dl POC Glucose 165 H 115 H (70-99) mg/dl Calcium (8.5-10.1) mg/dl Phosphorus (2.5-4.9) mg/dl Magnesium (1.7-2.4) mg/dl Total Bilirubin (0.2-1.0) mg/dl AST (13-39) U/L ALT (7-52) U/L Alkaline Phosphatase (34-104) U/L Total Protein (6.0-8.3) gm/dl Albumin (3.4-5.0) gm/dl Globulin (2.5-4.0) gm/dl Albumin/Globulin Ratio (0.9-2) PG Care Time/CCT Total # of Minutes Spent Total Time Spent with Patient: Total time spent is greater than 50% in coordination of care (as documented) at patient's floor/unit and/or counseling patient: Coding Level of Care Code 31265 Subseq Hosp Care Lvl 3 Diagnoses Abdominal pain, chronic, generalized R10.84; G89.29 Nausea and vomiting R11.2 Hypophosphatemia E83.39 Flank pain R10.9 Hyperglycemia R73.9 Colitis K52.9 Adrenal insufficiency E27.40 On total parenteral nutrition (TPN) Z78.9 Leukocytosis D72.829 Leukocytosis type: unspecified Gastrostomy tube in place Z93.1 Severe protein-calorie malnutrition E43 (1) Leukocytosis Leukocytosis type: unspecified Qualified Code(s): D72.829 - Elevated white blood cell count, unspecified
[2021-11-04] MEDS: TPN RATE CHANGE SCH ×2 (14:11→22:37)
[2021-11-04] MEDS: FEXOFENADINE HCL 180 MG TAB PO SCH (20:31)
[2021-11-04] MEDS ORDERED: CENTRAL PN IV SCH (21:00)
[2021-11-05] MEDS ORDERED: LIPIDS IV SCH
[2021-11-05] MEDS: INSULIN ASPART PER UNIT SC SCH ×4 (00:30→18:07)
[2021-11-05] MEDS: HYDROmorphone INJ 1 MG/ML SYRINGE IV PRN ×8 (00:30→21:28)
[2021-11-05] MEDS: LORazepam 0.5 MG in SYRINGE 0.25 ML IV PRN ×4 (00:30→21:50)
[2021-11-05] MEDS: [UNRECOGNIZED DRUG - REMARK] SCH ×2 (01:15→07:13)
[2021-11-05] MEDS: ONDANSETRON INJ 2 MG/ML 2 ML VIAL IV PRN ×2 (04:29→14:07)
[2021-11-05] MEDS: HYDROCORTISONE SOD 25 MG in SYRINGE 0 ML IV SCH ×2 (05:04→08:17)
[2021-11-05] MEDS: INSULIN GLARGINE SOLOSTAR 100 UNITS/ML 3 ML PEN SC SCH (08:08)
[2021-11-05] MEDS: GABAPENTIN 250 MG/5 ML 470 ML BTL GT SCH ×3 (08:25→21:20)
[2021-11-05] MEDS: PANTOprazole 40 MG TAB PO SCH (08:25)
[2021-11-05] MEDS: FLUDROCORTISONE ACETATE 0.1 MG TAB PO SCH ×2 (08:25→16:29)
[2021-11-05] MEDS: DICYCLOMINE HCL 10 MG CAP PO PRN (08:25)
[2021-11-05] MEDS: FAMOTIDINE 20 MG TAB PO SCH ×2 (08:26→21:20)
[2021-11-05] MEDS: HYDROCORTISONE 10 MG TAB PO SCH ×2 (08:26→16:29)
--- NOTE | 2021-11-05 08:30 | Gastroenterology Progress Note ---
Date of Service November 05, 2021 Assessment & Plan (1) Abdominal pain, chronic, generalized: Plan: Colitis on CT--antibiotics discontinued. Cdiff gene positive, negative toxin. Remainder of stool cultures negative. abd pain--chronic pain, worse this morning. 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 If GI symptoms worsen or fail to improve then would repeat to see if toxin positive, especially in light of Abx that were given. Complicated GI history and follows with GI at [facility] for possible intestinal transplant Case reviewed with Dr. Fernández. Please refer to supervising physician addendum for further recommendations. I have spent 15 minutes of discrete time performing the activities of this visit which include but are not limited to review of the medical record, obtaining a history, physical exam, and entering information in the electronic record. (2) Colitis: (3) Severe protein-calorie malnutrition: (4) Gastrostomy tube in place: Admission and Anticipated Discharge Date Admission Date: October 30, 2021 Supervising Physician Co-Signing Physician Notes I have seen and examined the patient. I agree with note above by YULISSA Lee except as noted below. HPI Mother with patient for H and P. She states doing better this afternoon. Mornings are worst per patient. LFTs higher today. PE Abdomen pos bs, soft, no guarding nor rebound. A/P abd pain chronic--supportive care n/v--supporive care elevated LFTS--higher today but may continue to rise awhile even after offending agent (possibly Zosyn) has been stopped. Continue to monitor. As the supervising physician, I , Candido Fernández MD have spent 10 minutes of discrete time performing the activities of this visit which include but not limited to review of the medical records, obtaining a history, physical exam and entering information in the electronic record. YULISSA Lee has reported spending 15 minutes of discrete time with the activities of this visit. Subjective Patient awake and crying this morning. She states she is having severe abdominal pain. Lab is in the room drawing her blood. Nursing is aware and getting pain medication for the patient. Reports nausea, denies vomiting. Review of Systems Gastrointestinal: + abdominal pain and + nausea Physical Exam Gastrointestinal (Abdomen): pos bs, soft, no guarding nor rebound, G tube and ileostomy site covered. Results & Data ([facility]) Vital Signs (Past 12 Hours) Vital Signs Temp Pulse Resp BP Pulse Ox 11/05/21 07:17 36.5 C 84 16 108/74 98 11/04/21 23:52 36.8 C 91 H 15 104/64 97 Laboratory Results Laboratory Results - last 24 hr 11/04/21 11/04/21 11/04/21 08:29 08:29 12:05 WBC 10.07 RBC 3.37 L Hgb 11.2 L Hct 33.2 L MCV 98.5 MCH 33.2 MCHC 33.7 RDW Std Deviation 40.9 RDW Coeff of Tim 11.5 Plt Count 282 MPV 10.8 H Immature Gran % (Auto) 0.9 Neut % (Auto) 82.2 Lymph % (Auto) 6.7 [place] % (Auto) 10.1 Eos % (Auto) 0.0 Baso % (Auto) 0.1 Neut # (Auto) 8.28 H Lymph # (Auto) 0.67 L [place] # (Auto) 1.02 H Eos # (Auto) 0.00 Baso # (Auto) 0.01 Immature Gran # (Auto) 0.09 H Sodium 142 Potassium 4.1 Chloride 109 H Carbon Dioxide 26 Anion Gap 7 BUN 15 Creatinine 0.62 Est Cr Clr Drug Dosing 102.7 Est GFR ( Amer) 141.2 Est GFR (Non-Af Amer) 121.9 BUN/Creatinine Ratio 24.2 H Glucose 118 H POC Glucose 154 H Calcium 8.4 L Phosphorus 3.2 D Magnesium 2.3 Total Bilirubin 0.3 AST 58 H ALT 119 H Alkaline Phosphatase 50 Total Protein 6.0 Albumin 3.7 Globulin 2.3 L Albumin/Globulin Ratio 1.6 11/04/21 11/04/21 11/05/21 17:47 23:50 06:01 WBC RBC Hgb Hct MCV MCH MCHC RDW Std Deviation RDW Coeff of Tim Plt Count MPV Immature Gran % (Auto) Neut % (Auto) Lymph % (Auto) [place] % (Auto) Eos % (Auto) Baso % (Auto) Neut # (Auto) Lymph # (Auto) [place] # (Auto) Eos # (Auto) Baso # (Auto) Immature Gran # (Auto) Sodium Potassium Chloride Carbon Dioxide Anion Gap BUN Creatinine Est Cr Clr Drug Dosing Est GFR ( Amer) Est GFR (Non-Af Amer) BUN/Creatinine Ratio Glucose POC Glucose 109 H 170 H 156 H Calcium Phosphorus Magnesium Total Bilirubin AST ALT Alkaline Phosphatase Total Protein Albumin Globulin Albumin/Globulin Ratio 11/05/21 11/05/21 07:53 07:53 WBC Pending RBC Pending Hgb Pending Hct Pending MCV Pending MCH Pending MCHC Pending RDW Std Deviation RDW Coeff of Tim Plt Count Pending MPV Immature Gran % (Auto) Neut % (Auto) Lymph % (Auto) [place] % (Auto) Eos % (Auto) Baso % (Auto) Neut # (Auto) Lymph # (Auto) [place] # (Auto) Eos # (Auto) Baso # (Auto) Immature Gran # (Auto) Sodium Pending Potassium Pending Chloride Pending Carbon Dioxide Pending Anion Gap Pending BUN Pending Creatinine Pending Est Cr Clr Drug Dosing Pending Est GFR ( Amer) Pending Est GFR (Non-Af Amer) Pending BUN/Creatinine Ratio Pending Glucose Pending POC Glucose Calcium Pending Phosphorus Pending Magnesium Pending Total Bilirubin Pending AST Pending ALT Pending Alkaline Phosphatase Pending Total Protein Pending Albumin Pending Globulin Pending Albumin/Globulin Ratio Pending
[2021-11-05 08:40] LABS: Basophils # (auto) 0.01 K/uL (0-0.2); Basophils % (auto) 0.1 %; Eosinophils # (auto) 0.01 K/uL (0-0.5); Eosinophils % (auto) 0.1 %; Hematocrit (blood only) 34.8 % (37-47); Hemoglobin 11.5 g/dL (12.0-16.0); Immature Granulocytes # (auto) 0.09 K/uL (0.00-0.02); Immature Granulocytes % (auto) 0.9 %; Lymphocytes # (auto) 0.67 K/uL (1.2-3.4); Lymphocytes % (auto) 6.4 %; Mean Corpuscular Volume 96.9 fL (80-100); Mean Platelet Volume 10.9 fL (7.4-10.4); Monocytes # (auto) 1.26 K/uL (0.11-0.59); Neutrophils # (auto) 8.46 K/uL (1.4-6.5); Neutrophils % (auto) 80.5 %; Platelet Count 283 K/uL (130-400); RDW Coefficient of Variation 11.4 % (11.5-14.5); RDW Standard Deviation 40.8 fL (36.4-46.3); Red Blood Count 3.59 M/uL (4.2-5.4)
[2021-11-05 09:08] LABS: Albumin Globulin Ratio 1.6 (0.9-2); Albumin Level 3.7 gm/dl (3.4-5.0); BUN Creatinine Ratio 26.7 (10-20); Bilirubin,Total 0.3 mg/dl (0.2-1.0); Calcium 8.3 mg/dl (8.5-10.1); Creatinine Clr Calc Pharmacy 105.1 ml/min; Est GFR (African American) 142.8 ml/min; Est GFR (Non-African American) 123.2 ml/min; Globulin 2.3 gm/dl (2.5-4.0); Magnesium 2.3 mg/dl (1.7-2.4)
[2021-11-05] MEDS ORDERED: POTASSIUM PHOSPHATE 15 MMOL in SODIUM CHLORIDE 0.9% 250 ML IV ONE (11:00)
[2021-11-05] MEDS: NYSTATIN SUSP 500,000 U/5 ML UDC PO SCH ×3 (14:00→21:20)
[2021-11-05] MEDS: TPN RATE CHANGE SCH ×2 (14:01→22:30)
[2021-11-05] MEDS ORDERED: [UNRECOGNIZED DRUG - OTHER] IV SCH (21:00)
[2021-11-05] MEDS ORDERED: AMINO ACID 8% IV SCH (21:00)
[2021-11-05] MEDS ORDERED: CENTRAL TPN IV SCH (21:00)
[2021-11-05] MEDS: FEXOFENADINE HCL 180 MG TAB PO SCH (21:20)
--- NOTE | 2021-11-05 21:22 | Hospitalist Progress Note ---
Date of Service November 05, 2021 Assessment & Plan (1) Abdominal pain, chronic, generalized: Plan: h/o SMA syndrome s/p surgical repair, GI dysmotility, prior jejunal intussusception. Patient with ileostomy, G-tube in place with latter in place for venting purposes. She is on chronic TPN for severe protein calorie malnutrition. Presenting abdominal pain - 2nd to "colitis" seen on admission CT? Gastritis? Acute/chronic abdominal pain? other? Pain improving. Tolerating small amounts of diet. No further vomiting. s/p 5 day course of zosyn for possible colitis. Stool biofire noted to be + for c diff gene but NEGATIVE for toxin indicating carrier state but unlikely to have active infection. Cont supportive care, TPN, etc. Appreciate GI assistance. (2) Nausea and vomiting: Plan: 2nd to chronic GI motility issues, adrenal insufficiency, other factors. Improving. G-tube still open to vent. Will try to clamp this in the next 24 hours. Stop stress dose steroids. (3) Hypophosphatemia: Plan: Replace with K-phos IV infusion today Repeat phos level am (4) Flank pain: Plan: u/s and CT without any acute findings. recent u/a wnl no pain today follow (5) Hyperglycemia: Plan: Check a1c in am Currently on small dose of lantus + novolog - this is to cover the glucose in her TPN (6) Colitis: Plan: Clinically resolved seen on admission CT etiology uncertain. s/p 5 day course of Zosyn -- now off antibiotics (7) Adrenal insufficiency: Plan: stop IV stress dose steroids cont hydrocortisone 15mg po qAM and 10mg po q afternoon tomorrow continue Florinef 0.2mg po qAM and 0.1mg po qpm (8) On total parenteral nutrition (TPN): Plan: LFTs are mildly elevated - thought 2nd to zosyn if they continue to rise may need to hold TPN will repeat LFTs am (9) Leukocytosis: Plan: resolved today at 10.5 (10) Gastrostomy tube in place: Plan: exchanged last year from G-J to just G tube as thought was that her J tube was causing intussusception remains vented cont for now (11) Severe protein-calorie malnutrition: Plan: Severe protein-calorie malnutrition Continue TPN TPN managed via [facility] awaiting small bowel transplant at [facility] (12) Candidiasis of mouth and esophagus: Plan: start nystatin 5cc qid swish/spit (13) Ileostomy status: Plan: functioning well Plan: mother extensively updated at bedside today try to start weaning dilaudid tomorrow Admission and Anticipated Discharge Date Admission Date: October 30, 2021 Subjective during my visit she was resting comfortably her mother was at bedside she continues with intermittent episodes of abd pain no vomiting g-tube is hooked to gravity bag and is draining bilious material/liquid she has been able to tolerate some solids by mouth TPN in place had had bloody, mucoid discharge from her rectum prior to admission - this is improved ileostomy output starting to berry picker - contents are similar to what she sees typically at home; no gross blood or gross melena via ileostomy typically empties her ileostomy bag about 5 times daily at home Review of Systems Review of Systems: gen - no fevers, no chills cv - no cp, no orthopnea pulm - no cough, no dyspnea, no congestion - no dysuria Physical Exam Physical Exam: gen - resting comfortably in bed, NAD, awake, alert mouth - probable thrush on tongue, buccal mucosa however wnl neck - no JVD chest - port in place - clean heart - RRR, s1 s2, no murmur lungs - CTA b/l abd - ileostomy with bag in place; g-tube in place hooked to catheter with bile noted; NT; ND; soft ext - no edema, pulses 2+ b/l Results & Data Results & Data ([facility]) Vital Signs (Past 12 Hours) Vital Signs Temp Pulse Resp BP Pulse Ox 11/05/21 15:16 36.7 C 86 16 98/62 L 97 Laboratory Results Laboratory Results - last 24 hr 11/04/21 11/05/21 11/05/21 23:50 06:01 07:53 WBC 10.50 RBC 3.59 L Hgb 11.5 L Hct 34.8 L MCV 96.9 MCH 32.0 MCHC 33.0 RDW Std Deviation 40.8 RDW Coeff of Tim 11.4 L Plt Count 283 MPV 10.9 H Immature Gran % (Auto) 0.9 Neut % (Auto) 80.5 Lymph % (Auto) 6.4 [place] % (Auto) 12.0 Eos % (Auto) 0.1 Baso % (Auto) 0.1 Neut # (Auto) 8.46 H Lymph # (Auto) 0.67 L [place] # (Auto) 1.26 H Eos # (Auto) 0.01 Baso # (Auto) 0.01 Immature Gran # (Auto) 0.09 H Sodium Potassium Chloride Carbon Dioxide Anion Gap BUN Creatinine Est Cr Clr Drug Dosing Est GFR ( Amer) Est GFR (Non-Af Amer) BUN/Creatinine Ratio Glucose POC Glucose 170 H 156 H Calcium Phosphorus Magnesium Total Bilirubin AST ALT Alkaline Phosphatase Total Protein Albumin Globulin Albumin/Globulin Ratio 11/05/21 11/05/21 11/05/21 07:53 11:58 18:04 WBC RBC Hgb Hct MCV MCH MCHC RDW Std Deviation RDW Coeff of Tim Plt Count MPV Immature Gran % (Auto) Neut % (Auto) Lymph % (Auto) [place] % (Auto) Eos % (Auto) Baso % (Auto) Neut # (Auto) Lymph # (Auto) [place] # (Auto) Eos # (Auto) Baso # (Auto) Immature Gran # (Auto) Sodium 143 Potassium 4.0 Chloride 109 H Carbon Dioxide 27 Anion Gap 7 BUN 16 Creatinine 0.60 Est Cr Clr Drug Dosing 105.1 Est GFR ( Amer) 142.8 Est GFR (Non-Af Amer) 123.2 BUN/Creatinine Ratio 26.7 H Glucose 150 H POC Glucose 144 H 91 Calcium 8.3 L Phosphorus 2.0 L D Magnesium 2.3 Total Bilirubin 0.3 AST 67 H ALT 135 H Alkaline Phosphatase 48 Total Protein 6.0 Albumin 3.7 Globulin 2.3 L Albumin/Globulin Ratio 1.6 PG Care Time/CCT Total # of Minutes Spent Total Time Spent with Patient: Total time spent is greater than 50% in coordination of care (as documented) at patient's floor/unit and/or counseling patient: Coding Level of Care Code 02977 Subseq Hosp Care Lvl 2 Diagnoses Abdominal pain, chronic, generalized R10.84; G89.29 Nausea and vomiting R11.2 Hypophosphatemia E83.39 Flank pain R10.9 Hyperglycemia R73.9 Colitis K52.9 Adrenal insufficiency E27.40 On total parenteral nutrition (TPN) Z78.9 Leukocytosis D72.829 Leukocytosis type: unspecified Gastrostomy tube in place Z93.1 Severe protein-calorie malnutrition E43 Candidiasis of mouth and esophagus B37.81; B37.0 Ileostomy status Z93.2 (1) Leukocytosis Leukocytosis type: unspecified Qualified Code(s): D72.829 - Elevated white blood cell count, unspecified
[2021-11-06] MEDS ORDERED: CLINOLIPID 20% IV FAT EMULSION 250 ML IV SCH
[2021-11-06] MEDS: HYDROmorphone INJ 1 MG/ML SYRINGE IV PRN ×8 (00:09→21:50)
[2021-11-06] MEDS: INSULIN ASPART PER UNIT SC SCH ×4 (00:22→17:58)
[2021-11-06] MEDS: [UNRECOGNIZED DRUG - REMARK] SCH ×2 (01:10→06:17)
[2021-11-06] MEDS: ONDANSETRON INJ 2 MG/ML 2 ML VIAL IV PRN ×3 (03:48→21:04)
[2021-11-06] MEDS ORDERED: STOP CLINOLIPID SCH (08:00)
[2021-11-06] MEDS: LORazepam 0.5 MG in SYRINGE 0.25 ML IV PRN ×3 (09:32→22:51)
[2021-11-06] MEDS: FLUDROCORTISONE ACETATE 0.1 MG TAB PO SCH ×2 (09:36→16:22)
[2021-11-06] MEDS: FAMOTIDINE 20 MG TAB PO SCH ×2 (09:37→21:04)
[2021-11-06] MEDS: HYDROCORTISONE 10 MG TAB PO SCH ×2 (09:39→16:22)
[2021-11-06] MEDS: GABAPENTIN 250 MG/5 ML 470 ML BTL GT SCH ×3 (09:39→21:04)
[2021-11-06] MEDS: PANTOprazole 40 MG TAB PO SCH (09:39)
[2021-11-06] MEDS: NYSTATIN SUSP 500,000 U/5 ML UDC PO SCH ×4 (09:40→21:04)
[2021-11-06 11:15] LABS: Basophils # (auto) 0.01 K/uL (0-0.2); Basophils % (auto) 0.1 %; Eosinophils # (auto) 0.08 K/uL (0-0.5); Eosinophils % (auto) 1.1 %; Hematocrit (blood only) 34.1 % (37-47); Hemoglobin 11.2 g/dL (12.0-16.0); Immature Granulocytes # (auto) 0.03 K/uL (0.00-0.02); Immature Granulocytes % (auto) 0.4 %; Lymphocytes # (auto) 2.51 K/uL (1.2-3.4); Lymphocytes % (auto) 35.2 %; Mean Corpuscular Hgb Conc 32.8 g/dL (32-36); Mean Corpuscular Volume 97.4 fL (80-100); Mean Platelet Volume 10.8 fL (7.4-10.4); Monocytes # (auto) 0.67 K/uL (0.11-0.59); Monocytes % (auto) 9.4 %; Neutrophils # (auto) 3.84 K/uL (1.4-6.5); Neutrophils % (auto) 53.8 %; Platelet Count 259 K/uL (130-400); RDW Coefficient of Variation 11.7 % (11.5-14.5); RDW Standard Deviation 41.5 fL (36.4-46.3); White Blood Count 7.14 K/uL (4.8-10.8)
[2021-11-06] MEDS: INSULIN GLARGINE SOLOSTAR 100 UNITS/ML 3 ML PEN SC SCH (11:29)
[2021-11-06 11:44] LABS: Albumin Globulin Ratio 1.6 (0.9-2); Albumin Level 3.4 gm/dl (3.4-5.0); BUN Creatinine Ratio 38.1 (10-20); Bilirubin,Total 0.3 mg/dl (0.2-1.0); Calcium 8.4 mg/dl (8.5-10.1); Creatinine Clr Calc Pharmacy 100.7 ml/min; Est GFR (African American) 140.5 ml/min; Est GFR (Non-African American) 121.2 ml/min; Globulin 2.1 gm/dl (2.5-4.0); Magnesium 1.9 mg/dl (1.7-2.4); Phosphorus 4.4 mg/dl (2.5-4.9); Potassium 3.6 mmol/L (3.5-5.1); Total Protein 5.5 gm/dl (6.0-8.3)
[2021-11-06 13:05] LABS: Estimated Average Glucose 105 mg/dl; Hemoglobin A1C 5.3 % (4.5-5.6)
--- NOTE | 2021-11-06 13:46 | Pharmacy Report ---
PHA: Parenteral Nutrition Con - Date of Service November 06, 2021 - Scope Pharmacy was consulted to manage parenteral nutrition orders for this patient. - Subjective The patient is currently on central parenteral nutrition. Patient previously on home TPN - Objective Height: 5 ft 6 in Weight: 48.4 kg Intake & Output (24hrs):: Intake & Output 11/04/21 11/05/21 11/06/21 11/07/21 06:59 06:59 06:59 06:59 Intake Total 2167.817 / 2167.817 255 / 255 Output Total 2150 / 2150 1700 / 1700 2150 / 2150 550 / 550 Balance 17.817 / 17.817 -1700 / -1700 -1895 / -1895 -550 / -550 Weight 48.6 kg 48.1 kg 48.4 kg Laboratory Data (Last 24 Hr):: 11/06/21 10:39 Sodium 144 Potassium 3.6 Chloride 109 H Carbon Dioxide 30 BUN 24 H Creatinine 0.63 Glucose 117 H Calcium 8.4 L Phosphorus 4.4 D Magnesium 1.9 Total Bilirubin 0.3 AST 92 H ALT 221 H Alkaline Phosphatase 44 Albumin 3.4 Nutrition Assessment:: Please refer to the Notes section of the EMR for the most recent practice professional note. - Plan Patient previously suppling her home TPN/lipids to be used inpatient. [facility] where she gets her home TPN is unable to supply more bags until she is discharged. Pharmacy now using our supply starting on 11/05. [facility] TPN bags: TPN 2:1 solution 1260 ml, AA 70 gm, CHO 225 g IV daily over 18 hours - running from [id number] each day with 1 hour up/down rate Additives: NaAcetate 5.0 meq, KAcetate 125 meq, Kphos 20 mM, CaGluc 5 meq, NaCl 145 meq, Mgsulfate 24 meq, tralement 1 ml Lipids 50 gms/250 ml daily over 8 hours - she gets from [id number] with 1 hour up/down rate We will continue to use our supply for TPN today - for 11/06 of PN administration, the following will be ordered. Na has been trending upward will decrease from ~140 meq to ~100 meq, k trending down will increase from ~75 meq to ~106 meq, mg trending downward will increase from 12.18 to 16.24 meq, phos trending up will scale back from 24 mmol to 18 mmol today Lipids held today due to LFTs rising per provider request Macronutrients Amino acids 77 grams/day Dextrose 134 grams/day Lipids - grams/day Micronutrients Sodium chloride 50 mEq Sodium acetate 50 mEq Potassium phosphate 18 mMol Potassium acetate 80 mEq Magnesium sulfate 16.24 mEq Calcium gluconate 9.3 mEq NO MULTIVITAMIN - PATIENT REPORTS ALLERGY Additional additives: 100 mg thiamine Total volume 1076 to be infused over 18 hours from [id number] Labs, as indicated, will be ordered per protocol Pharmacy will continue to follow and adjust parenteral nutrition orders on a daily basis. Thank you for allowing us to participate in the care of this patient.
[2021-11-06] MEDS: TPN RATE CHANGE SCH ×2 (13:47→21:50)
--- NOTE | 2021-11-06 15:59 | Gastroenterology Progress Note ---
Date of Service November 06, 2021 Assessment & Plan (1) Abdominal pain, chronic, generalized: Plan: abd pain improved n/v improved elevated LFTS---- worse--? from Zosyn but that is now stopped. Discussed with DR Liu and he is going to hold lipids. Perhaps virus that caused GI issue prompting admit also affecting liver ?. Continue to follow for now. Consider serologies for infectious agents if continue to worsen. Dr Queen is on schedule to be assuming GI care tomorrow am. I, Candido Fernández MD have spent 15 minutes of discrete time performing the activities of this visit which include but are not limited to review of the medical record, obtaining a history, physical exam, and entering information in the electronic record. Admission and Anticipated Discharge Date Admission Date: October 30, 2021 Subjective CC abd pain HPI Pt states abd pain improved. LFTs ALT 221 adn AST 92 vs 135 and 67 yesterday. Physical Exam Gastrointestinal (Abdomen): pos bs, soft, no guarding nor rebound Results & Data ([facility]) Vital Signs (Past 12 Hours) Vital Signs Temp Pulse Resp BP Pulse Ox 11/06/21 07:27 36.8 C 90 16 100/61 97
[2021-11-06] MEDS ORDERED: CENTRAL TPN IV SCH (21:00)
[2021-11-06] MEDS ORDERED: AMINO ACID 8% IV SCH (21:00)
[2021-11-06] MEDS ORDERED: [UNRECOGNIZED DRUG - OTHER] IV SCH (21:00)
[2021-11-06] MEDS: FEXOFENADINE HCL 180 MG TAB PO SCH (21:04)
--- NOTE | 2021-11-06 21:48 | Hospitalist Progress Note ---
Date of Service November 06, 2021 Assessment & Plan (1) Abdominal pain, chronic, generalized: Plan: h/o SMA syndrome s/p surgical repair, GI dysmotility, prior jejunal intussusception. Patient with ileostomy, G-tube in place with latter in place for venting purposes. She is on chronic TPN for severe protein calorie malnutrition. Presenting abdominal pain - 2nd to "colitis" seen on admission CT? Gastritis? Acute/chronic abdominal pain? other? Pain improving. Tolerating small amounts of diet. No further vomiting. s/p 5 day course of zosyn for possible colitis. Stool biofire noted to be + for c diff gene but NEGATIVE for toxin indicating carrier state but unlikely to have active infection. Plan - stop intermittent low-wall suctioning; place G-tube to gravity with guardado bag. try advancing clears to full liquids. try weaning IV dilaudid from q2h to q4h prn. repeat labs am. (2) Nausea and vomiting: Plan: 2nd to chronic GI motility issues, adrenal insufficiency, other factors. Improving. see #1 above for plan for the day. (3) Hypophosphatemia: Plan: Replaced and resolved (4) Flank pain: Plan: u/s and CT without any acute findings. recent u/a wnl again no pain today (5) Hyperglycemia: Plan: A1c is 5.3% only. can stop lantus. cont novolog prn. (6) Colitis: Plan: Clinically resolved seen on admission CT etiology uncertain. s/p 5 day course of Zosyn -- now off antibiotics (7) Adrenal insufficiency: Plan: finished stress dose steroids cont hydrocortisone 15mg po qAM and 10mg po q afternoon tomorrow continue Florinef 0.2mg po qAM and 0.1mg po qpm (8) On total parenteral nutrition (TPN): Plan: LFTs are mildly elevated - thought 2nd to zosyn hold lipids, however, to be safe will repeat LFTs am (9) Leukocytosis: Plan: resolved (10) Gastrostomy tube in place: Plan: exchanged last year from G-J to just G tube as thought was that her J tube was causing intussusception remains vented -- place to gravity today cont for now (11) Severe protein-calorie malnutrition: Plan: Severe protein-calorie malnutrition Continue TPN but hold lipids because of ast/alt being high TPN managed via [facility] awaiting small bowel transplant at [facility] (12) Candidiasis of mouth and esophagus: Plan: nystatin 5cc qid swish/spit (13) Ileostomy status: Plan: functioning well (14) Transaminitis: Plan: 2nd to recent zosyn use? viral process? other? hold lipids zosyn is off GI continues to follow if they continue to rise consider liver u/s, mono titer, cmv titer, hep A/B, etc. repeat LFTs am Plan: mother extensively updated at bedside once again today making slow progress Admission and Anticipated Discharge Date Admission Date: October 30, 2021 Subjective patient having a good day overall taking some food/beverage by mouth and keeping it down mother asks when she might be released we talked about stopping the intermittent low-wall suction of her G-tube, weaning the narcotics, trying to advance diet a bit, etc Review of Systems Review of Systems: gen - no fevers or chills pulm - no cough or dyspnea GI - abd pain is near baseline; no nausea/emesis today CV - no chest pain Physical Exam Physical Exam: gen - resting comfortably in bed, NAD, awake, alert - looks good today mouth - probable thrush on tongue is improved neck - no JVD chest - port in place - clean heart - RRR, s1 s2, no murmur lungs - CTA b/l abd - ileostomy with bag in place; g-tube in place hooked to catheter with bile noted; NT; ND; soft ext - no edema, pulses 2+ b/l psych - good spirits today Results & Data Results & Data ([facility]) Vital Signs (Past 12 Hours) Vital Signs Temp Pulse Resp BP Pulse Ox 11/06/21 15:45 36.8 C 84 18 106/72 99 Laboratory Results Laboratory Results - last 24 hr 11/06/21 11/06/21 11/06/21 00:21 06:14 10:39 WBC 7.14 RBC 3.50 L Hgb 11.2 L Hct 34.1 L MCV 97.4 MCH 32.0 MCHC 32.8 RDW Std Deviation 41.5 RDW Coeff of Tim 11.7 Plt Count 259 MPV 10.8 H Immature Gran % (Auto) 0.4 Neut % (Auto) 53.8 Lymph % (Auto) 35.2 [place] % (Auto) 9.4 Eos % (Auto) 1.1 Baso % (Auto) 0.1 Neut # (Auto) 3.84 Lymph # (Auto) 2.51 [place] # (Auto) 0.67 H Eos # (Auto) 0.08 Baso # (Auto) 0.01 Immature Gran # (Auto) 0.03 H Sodium Potassium Chloride Carbon Dioxide Anion Gap BUN Creatinine Est Cr Clr Drug Dosing Est GFR ( Amer) Est GFR (Non-Af Amer) BUN/Creatinine Ratio Glucose POC Glucose 116 H 100 H Estimat Average Glucose Hemoglobin A1c Calcium Phosphorus Magnesium Total Bilirubin AST ALT Alkaline Phosphatase Total Protein Albumin Globulin Albumin/Globulin Ratio 11/06/21 11/06/21 11/06/21 10:39 10:39 12:14 WBC RBC Hgb Hct MCV MCH MCHC RDW Std Deviation RDW Coeff of Tim Plt Count MPV Immature Gran % (Auto) Neut % (Auto) Lymph % (Auto) [place] % (Auto) Eos % (Auto) Baso % (Auto) Neut # (Auto) Lymph # (Auto) [place] # (Auto) Eos # (Auto) Baso # (Auto) Immature Gran # (Auto) Sodium 144 Potassium 3.6 Chloride 109 H Carbon Dioxide 30 Anion Gap 5 BUN 24 H Creatinine 0.63 Est Cr Clr Drug Dosing 100.7 Est GFR ( Amer) 140.5 Est GFR (Non-Af Amer) 121.2 BUN/Creatinine Ratio 38.1 H Glucose 117 H POC Glucose 123 H Estimat Average Glucose 105 Hemoglobin A1c 5.3 Calcium 8.4 L Phosphorus 4.4 D Magnesium 1.9 Total Bilirubin 0.3 AST 92 H ALT 221 H Alkaline Phosphatase 44 Total Protein 5.5 L Albumin 3.4 Globulin 2.1 L Albumin/Globulin Ratio 1.6 11/06/21 17:29 WBC RBC Hgb Hct MCV MCH MCHC RDW Std Deviation RDW Coeff of Tim Plt Count MPV Immature Gran % (Auto) Neut % (Auto) Lymph % (Auto) [place] % (Auto) Eos % (Auto) Baso % (Auto) Neut # (Auto) Lymph # (Auto) [place] # (Auto) Eos # (Auto) Baso # (Auto) Immature Gran # (Auto) Sodium Potassium Chloride Carbon Dioxide Anion Gap BUN Creatinine Est Cr Clr Drug Dosing Est GFR ( Amer) Est GFR (Non-Af Amer) BUN/Creatinine Ratio Glucose POC Glucose 99 Estimat Average Glucose Hemoglobin A1c Calcium Phosphorus Magnesium Total Bilirubin AST ALT Alkaline Phosphatase Total Protein Albumin Globulin Albumin/Globulin Ratio PG Care Time/CCT Total # of Minutes Spent Total Time Spent with Patient: Total time spent is greater than 50% in coordination of care (as documented) at patient's floor/unit and/or counseling patient: Coding Level of Care Code 55417 Subseq Hosp Care Lvl 2 Diagnoses Abdominal pain, chronic, generalized R10.84; G89.29 Nausea and vomiting R11.2 Hypophosphatemia E83.39 Flank pain R10.9 Hyperglycemia R73.9 Colitis K52.9 Adrenal insufficiency E27.40 On total parenteral nutrition (TPN) Z78.9 Leukocytosis D72.829 Leukocytosis type: unspecified Gastrostomy tube in place Z93.1 Severe protein-calorie malnutrition E43 Candidiasis of mouth and esophagus B37.81; B37.0 Ileostomy status Z93.2 Transaminitis R74.01 (1) Leukocytosis Leukocytosis type: unspecified Qualified Code(s): D72.829 - Elevated white blood cell count, unspecified
[2021-11-07] MEDS: INSULIN ASPART PER UNIT SC SCH ×4 (00:34→18:20)
[2021-11-07] MEDS: HYDROmorphone INJ 1 MG/ML SYRINGE IV PRN ×5 (01:56→21:46)
[2021-11-07] MEDS: ONDANSETRON INJ 2 MG/ML 2 ML VIAL IV PRN ×2 (05:55→14:33)
--- NOTE | 2021-11-07 08:15 | Gastroenterology Progress Note ---
Date of Service November 07, 2021 Assessment & Plan (1) Abdominal pain, chronic, generalized: Plan: Colitis on CT--antibiotics discontinued. Cdiff gene positive, negative toxin. Remainder of stool cultures negative. abd pain--chronic pain, improved this morning. 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 If GI symptoms worsen or fail to improve then would repeat to see if toxin positive, especially in light of Abx that were given. Elevated LFTs--lipids on hold in tpn and labs pending today Complicated GI history and follows with GI at [facility] for possible intestinal transplant Case reviewed with Dr. Queen. Please refer to supervising physician addendum for further recommendations. I have spent 15 minutes of discrete time performing the activities of this visit which include but are not limited to review of the medical record, obtaining a history, physical exam, and entering information in the electronic record. Admission and Anticipated Discharge Date Admission Date: October 30, 2021 Supervising Physician Co-Signing Physician Notes I interviewed and examined the patient and reviewed the medical record, with the following observations: Subjective: Ms. Garcia has had waxing and waning abdominal pain episodes throughout the day with associated nausea and dry heaves, no vomiting. Physical Examination: She does not appear uncomfortable, toxic, acutely ill, she appears thin and chronically ill, no distress at rest, without dyspnea, diaphoresis, or tachycardia G tube to gravity drainage, ileostomy with no drainage problems. The abdomen is flat, absent bowel sounds, diffuse tenderness and guarding Chart Review: 8 fold increase in lipase level since prior to this admission, from the 20s to the 160s, ULN is in the 80s. No amylase level, liver transaminases are improving, alk phos and bilirubin normal. CT abd/pelvis from last week reviewed with radiologist, pancreas appeared entirely normal, no hint of any inflammation. Patient states she was told she had an episode of pancreatitis in June 2019. She is s/p cholecystectomy for "sludge" and inflammation I agree with the assessment as outlined in this consultation, with the following observations: 8 fold increase in lipase is significant but not specific for acute pancreatitis. Could be related to TPN lipid administration, any inflammatory condition in the abdomen, drug effect. I agree with the plan of care as outlined in this consultation, with the following changes and/or additions: Surest way to determine if pancreatitis is a problem is to repeat the CT with IV contrast, but she has had around a dozen CT scans over the past few years. Liver tests are improving, clinical condition is unchanged, and management would not change if acute edematous pancreatitis were present. Recommend check serum amylase level, and repeat lipase. amylase, and liver tests in AM, continue to follow clinical course. As the supervising physician, I have spent 58 minutes of discrete time performing the activities of this consultation which include, but are not limited to, review of the medical record, obtaining a history, physical examination, and entering information into the electronic record. YULISSA Lee, has reported spending 15 minutes of discrete time with the activities of the consultation. Subjective Patient sleeping when entering room, wakes easily with verbal stimuli. Mother at bedside in sleeper chair. Patient reports she is feeling pretty good this morning. Reports nausea continued but closer to baseline. Required pain medication yesterday but continues to try to decrease frequency of use. Lipids in feeding on hold due to elevated lfts. Ileostomy output consistent with pr evious. Denies vomiting. Tolerating some po. Review of Systems Review of Systems: All systems reviewed & are unremarkable except as noted in Subjective Physical Exam Gastrointestinal (Abdomen): pos bs, soft, no guarding nor rebound, ileostomy intact, feeding tube intact Results & Data ([facility]) Vital Signs (Past 12 Hours) Vital Signs Temp Pulse Resp BP Pulse Ox 11/07/21 06:47 36.7 C 76 16 98/65 L 98 11/06/21 23:14 36.8 C 71 16 105/70 97 Laboratory Results Laboratory Results - last 24 hr 11/06/21 11/07/21 11/07/21 17:29 00:30 05:51 WBC RBC Hgb Hct MCV MCH MCHC RDW Std Deviation RDW Coeff of Tim Plt Count MPV Immature Gran % (Auto) Neut % (Auto) Lymph % (Auto) [place] % (Auto) Eos % (Auto) Baso % (Auto) Neut # (Auto) Lymph # (Auto) [place] # (Auto) Eos # (Auto) Baso # (Auto) Immature Gran # (Auto) Sodium Potassium Chloride Carbon Dioxide Anion Gap BUN Creatinine Est Cr Clr Drug Dosing Est GFR ( Amer) Est GFR (Non-Af Amer) BUN/Creatinine Ratio Glucose POC Glucose 99 116 H 94 Calcium Phosphorus Magnesium Total Bilirubin AST ALT Alkaline Phosphatase Total Protein Albumin Globulin Albumin/Globulin Ratio Triglycerides 11/07/21 11/07/21 11/07/21 08:46 08:46 08:46 WBC 7.16 RBC 3.37 L Hgb 11.2 L Hct 32.5 L MCV 96.4 MCH 33.2 MCHC 34.5 RDW Std Deviation 40.4 RDW Coeff of Tim 11.4 L Plt Count 265 MPV 10.2 Immature Gran % (Auto) 0.3 Neut % (Auto) 52.3 Lymph % (Auto) 35.3 [place] % (Auto) 10.1 Eos % (Auto) 1.7 Baso % (Auto) 0.3 Neut # (Auto) 3.75 Lymph # (Auto) 2.53 [place] # (Auto) 0.72 H Eos # (Auto) 0.12 Baso # (Auto) 0.02 Immature Gran # (Auto) 0.02 Sodium 140 Potassium 3.8 Chloride 106 Carbon Dioxide 29 Anion Gap 5 BUN 21 Creatinine 0.60 Est Cr Clr Drug Dosing 105.7 Est GFR ( Amer) 142.8 Est GFR (Non-Af Amer) 123.2 BUN/Creatinine Ratio 35.0 H Glucose 114 H POC Glucose Calcium 8.5 Phosphorus 3.9 Magnesium 2.1 Total Bilirubin 0.4 AST 37 ALT 155 H Alkaline Phosphatase 39 Total Protein 5.4 L Albumin 3.4 Globulin 2.0 L Albumin/Globulin Ratio 1.7 Triglycerides 98 11/07/21 12:03 WBC RBC Hgb Hct MCV MCH MCHC RDW Std Deviation RDW Coeff of Tim Plt Count MPV Immature Gran % (Auto) Neut % (Auto) Lymph % (Auto) [place] % (Auto) Eos % (Auto) Baso % (Auto) Neut # (Auto) Lymph # (Auto) [place] # (Auto) Eos # (Auto) Baso # (Auto) Immature Gran # (Auto) Sodium Potassium Chloride Carbon Dioxide Anion Gap BUN Creatinine Est Cr Clr Drug Dosing Est GFR ( Amer) Est GFR (Non-Af Amer) BUN/Creatinine Ratio Glucose POC Glucose 101 H Calcium Phosphorus Magnesium Total Bilirubin AST ALT Alkaline Phosphatase Total Protein Albumin Globulin Albumin/Globulin Ratio Triglycerides
[2021-11-07] MEDS: GABAPENTIN 250 MG/5 ML 470 ML BTL GT SCH ×4 (08:22→21:35)
[2021-11-07] MEDS: PANTOprazole 40 MG TAB PO SCH (08:23)
[2021-11-07] MEDS: FAMOTIDINE 20 MG TAB PO SCH ×2 (08:23→21:26)
[2021-11-07] MEDS: HYDROCORTISONE 10 MG TAB PO SCH ×2 (08:24→16:35)
[2021-11-07] MEDS: FLUDROCORTISONE ACETATE 0.1 MG TAB PO SCH ×2 (08:25→16:35)
[2021-11-07] MEDS: NYSTATIN SUSP 500,000 U/5 ML UDC PO SCH ×4 (08:27→21:26)
[2021-11-07 09:03] LABS: Basophils # (auto) 0.02 K/uL (0-0.2); Basophils % (auto) 0.3 %; Eosinophils # (auto) 0.12 K/uL (0-0.5); Eosinophils % (auto) 1.7 %; Hematocrit (blood only) 32.5 % (37-47); Hemoglobin 11.2 g/dL (12.0-16.0); Immature Granulocytes # (auto) 0.02 K/uL (0.00-0.02); Immature Granulocytes % (auto) 0.3 %; Lymphocytes # (auto) 2.53 K/uL (1.2-3.4); Lymphocytes % (auto) 35.3 %; Mean Corpuscular Hemoglobin 33.2 pg (25-34); Mean Corpuscular Hgb Conc 34.5 g/dL (32-36); Mean Corpuscular Volume 96.4 fL (80-100); Mean Platelet Volume 10.2 fL (7.4-10.4); Monocytes # (auto) 0.72 K/uL (0.11-0.59); Monocytes % (auto) 10.1 %; Neutrophils # (auto) 3.75 K/uL (1.4-6.5); Neutrophils % (auto) 52.3 %; Platelet Count 265 K/uL (130-400); RDW Coefficient of Variation 11.4 % (11.5-14.5); RDW Standard Deviation 40.4 fL (36.4-46.3); Red Blood Count 3.37 M/uL (4.2-5.4); White Blood Count 7.16 K/uL (4.8-10.8)
[2021-11-07 09:28] LABS: Albumin Globulin Ratio 1.7 (0.9-2); Albumin Level 3.4 gm/dl (3.4-5.0); Bilirubin,Total 0.4 mg/dl (0.2-1.0); Calcium 8.5 mg/dl (8.5-10.1); Creatinine Clr Calc Pharmacy 105.7 ml/min; Est GFR (African American) 142.8 ml/min; Est GFR (Non-African American) 123.2 ml/min; Magnesium 2.1 mg/dl (1.7-2.4); Phosphorus 3.9 mg/dl (2.5-4.9); Potassium 3.8 mmol/L (3.5-5.1); Total Protein 5.4 gm/dl (6.0-8.3)
[2021-11-07] MEDS: LORazepam 0.5 MG in SYRINGE 0.25 ML IV PRN (10:24)
[2021-11-07] MEDS ORDERED: traMADol HCL 50 MG TABLET PO PRN (10:50)
[2021-11-07] MEDS ORDERED: HYDROmorphone INJ 1 MG/ML SYRINGE IV PRN (10:51)
[2021-11-07] MEDS: DICYCLOMINE HCL 10 MG CAP PO PRN (13:16)
[2021-11-07] MEDS: TPN RATE CHANGE SCH ×2 (13:20→22:15)
[2021-11-07] MEDS ORDERED: LORazepam 1 MG in SYRINGE 0.25 ML IV PRN (13:47)
[2021-11-07] MEDS: LORazepam 1 MG in SYRINGE 0.5 ML IV PRN (19:52)
[2021-11-07] MEDS ORDERED: CENTRAL TPN IV SCH (21:00)
[2021-11-07] MEDS ORDERED: [UNRECOGNIZED DRUG - OTHER] IV SCH (21:00)
[2021-11-07] MEDS ORDERED: AMINO ACID 8% IV SCH (21:00)
[2021-11-07] MEDS: FEXOFENADINE HCL 180 MG TAB PO SCH (21:26)
--- NOTE | 2021-11-07 21:32 | Hospitalist Progress Note ---
Date of Service November 07, 2021 Assessment & Plan (1) Elevated lipase: Plan: after my bedside visit I ordered a lipase level given her new-onset worsening of abd pain and dry heaves despite her g-tube to gravity drainage. lipase returned elevated at 160. previous level was 21 on 10/30/21. unclear if truly has acute pancreatitis but certainly possible. in light of #2 and now the elevated lipase and recent "colitis" on CT -- viral induced? other? change dilaudid back to q3h prn. place g-tube back to intermittent low-wall suction. anti-emetics. TPN w/o lipids. repeat lipase in am. consider repeat imaging. appreciate GI consult/input. (2) Transaminitis: Plan: 2nd to recent zosyn use? viral process? other? cont to hold lipids zosyn is off GI continues to follow ast/alt did improve overnight repeat again in am (3) Abdominal pain, chronic, generalized: Plan: h/o SMA syndrome s/p surgical repair, GI dysmotility, prior jejunal intussusception. Patient with ileostomy, G-tube in place with latter in place for venting purposes. She is on chronic TPN for severe protein calorie malnutrition. She has chronic abd pain. Presented with acute worsening - etiology initially felt to be the "colitis" seen on CT but etiology of such was not certain. Everything improved, then acute worsening today. acute pancreatitis? see above. (4) Nausea and vomiting: Plan: 2nd to chronic GI motility issues, adrenal insufficiency, other factors. Had improved, now worse today. Place g-tube back to ILWS rather than gravity. see #1 above. (5) Hypophosphatemia: Plan: Replaced and resolved (6) Flank pain: Plan: has not recurred u/s and CT without any acute findings. recent u/a wnl (7) Hyperglycemia: Plan: A1c is 5.3% only. stop lantus. cont novolog prn. (8) Colitis: Plan: Clinically resolved seen on admission CT etiology uncertain. s/p 5 day course of Zosyn -- now off antibiotics (9) Adrenal insufficiency: Plan: finished stress dose steroids cont hydrocortisone 15mg po qAM and 10mg po q afternoon tomorrow continue Florinef 0.2mg po qAM and 0.1mg po qpm (10) On total parenteral nutrition (TPN): Plan: LFTs are mildly elevated - thought 2nd to zosyn hold lipids again today will repeat LFTs am (11) Leukocytosis: Plan: resolved (12) Gastrostomy tube in place: Plan: exchanged last year from G-J to just G tube as thought was that her J tube was causing intussusception place back to [facility] (13) Severe protein-calorie malnutrition: Plan: Severe protein-calorie malnutrition Continue TPN but hold lipids because of ast/alt being high TPN managed via [facility] awaiting small bowel transplant at [facility] (14) Candidiasis of mouth and esophagus: Plan: nystatin 5cc qid swish/spit (15) Ileostomy status: Plan: functioning well Plan: mother extensively updated at bedside once again today Admission and Anticipated Discharge Date Admission Date: October 30, 2021 Subjective patient feels much worse today abd pain is worse - it is typical location (mid-abdomen) as her chronic pain but MUCH worse in intensity at baseline pain is usually 3/10 on pain scale; today 7 or higher dry heaving during my visit ileostomy output is less than typical but "picking up" tramadol for pain not helpful today g-tube is hooked to gravity and draining bile mother at bedside Review of Systems Review of Systems: gen - no fevers or chills cv - no cp pulm - no cough GI - see HPI; denies any rectal bleeding or rectal mucous - no dysuria Physical Exam Physical Exam: gen - looks poor today, uncomfortable, dry heaving neck - no JVD chest - port in place - clean heart - RRR, s1 s2, no murmur lungs - CTA b/l abd - ileostomy with bag in place; g-tube in place hooked to catheter with bile noted in guardado bag; tender central abdomen to palpation; ND; soft ext - no edema, pulses 2+ b/l psych - tearful today Results & Data Results & Data ([facility]) Vital Signs (Past 12 Hours) Vital Signs Temp Pulse Resp BP Pulse Ox 11/07/21 15:02 36.6 C 87 16 106/72 97 Laboratory Results Laboratory Results - last 24 hr 11/07/21 11/07/21 11/07/21 08:46 08:46 08:46 WBC 7.16 RBC 3.37 L Hgb 11.2 L Hct 32.5 L MCV 96.4 MCH 33.2 MCHC 34.5 RDW Std Deviation 40.4 RDW Coeff of Tim 11.4 L Plt Count 265 MPV 10.2 Immature Gran % (Auto) 0.3 Neut % (Auto) 52.3 Lymph % (Auto) 35.3 [place] % (Auto) 10.1 Eos % (Auto) 1.7 Baso % (Auto) 0.3 Neut # (Auto) 3.75 Lymph # (Auto) 2.53 [place] # (Auto) 0.72 H Eos # (Auto) 0.12 Baso # (Auto) 0.02 Immature Gran # (Auto) 0.02 Sodium 140 Potassium 3.8 Chloride 106 Carbon Dioxide 29 Anion Gap 5 BUN 21 Creatinine 0.60 Est Cr Clr Drug Dosing 105.7 Est GFR ( Amer) 142.8 Est GFR (Non-Af Amer) 123.2 BUN/Creatinine Ratio 35.0 H Glucose 114 H POC Glucose Calcium 8.5 Phosphorus 3.9 Magnesium 2.1 Total Bilirubin 0.4 AST 37 ALT 155 H Alkaline Phosphatase 39 Total Protein 5.4 L Albumin 3.4 Globulin 2.0 L Albumin/Globulin Ratio 1.7 Triglycerides 98 Amylase Lipase 11/07/21 11/07/21 11/07/21 08:46 08:46 12:03 WBC RBC Hgb Hct MCV MCH MCHC RDW Std Deviation RDW Coeff of Tim Plt Count MPV Immature Gran % (Auto) Neut % (Auto) Lymph % (Auto) [place] % (Auto) Eos % (Auto) Baso % (Auto) Neut # (Auto) Lymph # (Auto) [place] # (Auto) Eos # (Auto) Baso # (Auto) Immature Gran # (Auto) Sodium Potassium Chloride Carbon Dioxide Anion Gap BUN Creatinine Est Cr Clr Drug Dosing Est GFR ( Amer) Est GFR (Non-Af Amer) BUN/Creatinine Ratio Glucose POC Glucose 101 H Calcium Phosphorus Magnesium Total Bilirubin AST ALT Alkaline Phosphatase Total Protein Albumin Globulin Albumin/Globulin Ratio Triglycerides Amylase 48 Lipase 162 H 11/07/21 18:20 WBC RBC Hgb Hct MCV MCH MCHC RDW Std Deviation RDW Coeff of Tim Plt Count MPV Immature Gran % (Auto) Neut % (Auto) Lymph % (Auto) [place] % (Auto) Eos % (Auto) Baso % (Auto) Neut # (Auto) Lymph # (Auto) [place] # (Auto) Eos # (Auto) Baso # (Auto) Immature Gran # (Auto) Sodium Potassium Chloride Carbon Dioxide Anion Gap BUN Creatinine Est Cr Clr Drug Dosing Est GFR ( Amer) Est GFR (Non-Af Amer) BUN/Creatinine Ratio Glucose POC Glucose 100 H Calcium Phosphorus Magnesium Total Bilirubin AST ALT Alkaline Phosphatase Total Protein Albumin Globulin Albumin/Globulin Ratio Triglycerides Amylase Lipase PG Care Time/CCT Total # of Minutes Spent Total Time Spent with Patient: Total time spent is greater than 50% in coordination of care (as documented) at patient's floor/unit and/or counseling patient: Coding Level of Care Code 37034 Subseq Hosp Care Lvl 3 Diagnoses Abdominal pain, chronic, generalized R10.84; G89.29 Nausea and vomiting R11.2 Hypophosphatemia E83.39 Flank pain R10.9 Hyperglycemia R73.9 Colitis K52.9 Adrenal insufficiency E27.40 On total parenteral nutrition (TPN) Z78.9 Leukocytosis D72.829 Leukocytosis type: unspecified Gastrostomy tube in place Z93.1 Severe protein-calorie malnutrition E43 Candidiasis of mouth and esophagus B37.81; B37.0 Ileostomy status Z93.2 Transaminitis R74.01 Elevated lipase R74.8 (1) Leukocytosis Leukocytosis type: unspecified Qualified Code(s): D72.829 - Elevated white blood cell count, unspecified
[2021-11-08] MEDS: INSULIN ASPART PER UNIT SC SCH ×4 (00:04→18:02)
[2021-11-08] MEDS: HYDROmorphone INJ 1 MG/ML SYRINGE IV PRN ×7 (00:42→22:07)
[2021-11-08] MEDS: LORazepam 1 MG in SYRINGE 0.5 ML IV PRN ×3 (00:43→18:35)
[2021-11-08] MEDS: ONDANSETRON INJ 2 MG/ML 2 ML VIAL IV PRN ×2 (05:16→22:08)
--- NOTE | 2021-11-08 08:29 | Gastroenterology Progress Note ---
Date of Service November 08, 2021 Assessment & Plan (1) Abdominal pain, chronic, generalized: Plan: Colitis on CT--antibiotics discontinued. Cdiff gene positive, negative toxin. Remainder of stool cultures negative. abd pain--chronic pain, worse today. 8 fold increase in lipase level since prior to this admission, from the 20s to the 160s, ULN is in the 80s.Normal CT A/P with admission. reports one previous episode of pancreatitis. s/p cholecystectomy. Continue supportive care measures, obtain amylase and lipase, repeat LFTs this morning - pending with evaluation this morning n/v--better Monica tube to low intermittent suction intestinal dysmotility--supportive care Cdiff gene pos, toxin neg---probably carrier state at present. If GI symptoms worsen or fail to improve then would repeat to see if toxin positive, especially in light of Abx that were given. Elevated LFTs--lipids on hold in tpn and labs pending today Complicated GI history and follows with GI at [facility] for possible intestinal transplant Case reviewed with Dr. Queen. Please refer to supervising physician addendum for further recommendations. I have spent 15 minutes of discrete time performing the activities of this visit which include but are not limited to review of the medical record, obtaining a history, physical exam, and entering information in the electronic record. Admission and Anticipated Discharge Date Admission Date: October 30, 2021 Supervising Physician Co-Signing Physician Notes I interviewed and examined the patient and reviewed the medical record, with the following observations: Subjective: Ms. Garcia reports that today symptoms of abdominal pain and nausea, retching have been stable, not increased, she has had a pretty good day. No change in G tube or ileostomy drainage, no new symptoms Physical Examination: flat soft abdomen without guarding; hypoactive normal bowel sounds, she tolerates abdominal palpation without complaints of tenderness Chart Review: Lipase elevated 9 fold from baseline, serum amylase is normal, LFTs improved I agree with the assessment as outlined in this consultation, with the following observations: acute pancreatitis seems unlikely, lipase elevation likely secondary to other inflammation in the abdomen I agree with the plan of care as outlined in this consultation, with the following changes and/or additions: Continue same supportive plan of care and observation, no new recommendations at this time, continue to monitor daily lipase level. As the supervising physician, I have spent 20 minutes of discrete time performing the activities of this consultation which include, but are not limited to, review of the medical record, obtaining a history, physical examination, and entering information into the electronic record. YULISSA Lee, has reported spending 15 minutes of discrete time with the activities of the consultation. Subjective Patient awake this morning. She complains of upper abdominal pain and dry heaving throughout the night. Ileostomy output is the same as previous. G-tube to suction. Waiting for nursing to administer analgesic. Review of Systems Gastrointestinal: + abdominal pain and + nausea Physical Exam Gastrointestinal (Abdomen): pos bs, soft, no guarding nor rebound, ileostomy intact, feeding tube intact Results & Data ([facility]) Vital Signs (Past 12 Hours) Vital Signs Temp Pulse Resp BP Pulse Ox 11/08/21 07:52 36.7 C 87 16 106/71 98 11/07/21 22:18 36.9 C 85 16 100/70 97 Laboratory Results Laboratory Results - last 24 hr 11/07/21 11/07/21 11/07/21 08:46 08:46 08:46 WBC 7.16 RBC 3.37 L Hgb 11.2 L Hct 32.5 L MCV 96.4 MCH 33.2 MCHC 34.5 RDW Std Deviation 40.4 RDW Coeff of Tim 11.4 L Plt Count 265 MPV 10.2 Immature Gran % (Auto) 0.3 Neut % (Auto) 52.3 Lymph % (Auto) 35.3 [place] % (Auto) 10.1 Eos % (Auto) 1.7 Baso % (Auto) 0.3 Neut # (Auto) 3.75 Lymph # (Auto) 2.53 [place] # (Auto) 0.72 H Eos # (Auto) 0.12 Baso # (Auto) 0.02 Immature Gran # (Auto) 0.02 Sodium 140 Potassium 3.8 Chloride 106 Carbon Dioxide 29 Anion Gap 5 BUN 21 Creatinine 0.60 Est Cr Clr Drug Dosing 105.7 Est GFR ( Amer) 142.8 Est GFR (Non-Af Amer) 123.2 BUN/Creatinine Ratio 35.0 H Glucose 114 H POC Glucose Calcium 8.5 Phosphorus 3.9 Magnesium 2.1 Total Bilirubin 0.4 AST 37 ALT 155 H Alkaline Phosphatase 39 Total Protein 5.4 L Albumin 3.4 Globulin 2.0 L Albumin/Globulin Ratio 1.7 Triglycerides 98 Amylase Lipase 11/07/21 11/07/21 11/07/21 08:46 08:46 12:03 WBC RBC Hgb Hct MCV MCH MCHC RDW Std Deviation RDW Coeff of Tim Plt Count MPV Immature Gran % (Auto) Neut % (Auto) Lymph % (Auto) [place] % (Auto) Eos % (Auto) Baso % (Auto) Neut # (Auto) Lymph # (Auto) [place] # (Auto) Eos # (Auto) Baso # (Auto) Immature Gran # (Auto) Sodium Potassium Chloride Carbon Dioxide Anion Gap BUN Creatinine Est Cr Clr Drug Dosing Est GFR ( Amer) Est GFR (Non-Af Amer) BUN/Creatinine Ratio Glucose POC Glucose 101 H Calcium Phosphorus Magnesium Total Bilirubin AST ALT Alkaline Phosphatase Total Protein Albumin Globulin Albumin/Globulin Ratio Triglycerides Amylase 48 Lipase 162 H 11/07/21 11/08/21 11/08/21 18:20 00:01 05:58 WBC RBC Hgb Hct MCV MCH MCHC RDW Std Deviation RDW Coeff of Tim Plt Count MPV Immature Gran % (Auto) Neut % (Auto) Lymph % (Auto) [place] % (Auto) Eos % (Auto) Baso % (Auto) Neut # (Auto) Lymph # (Auto) [place] # (Auto) Eos # (Auto) Baso # (Auto) Immature Gran # (Auto) Sodium Potassium Chloride Carbon Dioxide Anion Gap BUN Creatinine Est Cr Clr Drug Dosing Est GFR ( Amer) Est GFR (Non-Af Amer) BUN/Creatinine Ratio Glucose POC Glucose 100 H 101 H 109 H Calcium Phosphorus Magnesium Total Bilirubin AST ALT Alkaline Phosphatase Total Protein Albumin Globulin Albumin/Globulin Ratio Triglycerides Amylase Lipase
[2021-11-08] MEDS: FAMOTIDINE 20 MG TAB PO SCH ×2 (08:39→21:11)
[2021-11-08] MEDS: FLUDROCORTISONE ACETATE 0.1 MG TAB PO SCH ×2 (08:39→18:01)
[2021-11-08] MEDS: HYDROCORTISONE 10 MG TAB PO SCH ×2 (08:40→18:01)
[2021-11-08] MEDS: PANTOprazole 40 MG TAB PO SCH (08:41)
[2021-11-08] MEDS: NYSTATIN SUSP 500,000 U/5 ML UDC PO SCH ×4 (08:41→21:15)
[2021-11-08] MEDS: GABAPENTIN 250 MG/5 ML 470 ML BTL GT SCH ×3 (08:54→21:10)
[2021-11-08 09:28] LABS: Basophils # (auto) 0.01 K/uL (0-0.2); Basophils % (auto) 0.1 %; Eosinophils # (auto) 0.15 K/uL (0-0.5); Eosinophils % (auto) 2.2 %; Hematocrit (blood only) 35.9 % (37-47); Hemoglobin 11.9 g/dL (12.0-16.0); Immature Granulocytes # (auto) 0.02 K/uL (0.00-0.02); Immature Granulocytes % (auto) 0.3 %; Lymphocytes # (auto) 2.57 K/uL (1.2-3.4); Lymphocytes % (auto) 38.2 %; Mean Corpuscular Hemoglobin 31.7 pg (25-34); Mean Corpuscular Hgb Conc 33.1 g/dL (32-36); Mean Corpuscular Volume 95.7 fL (80-100); Mean Platelet Volume 10.4 fL (7.4-10.4); Monocytes # (auto) 0.82 K/uL (0.11-0.59); Monocytes % (auto) 12.2 %; Neutrophils # (auto) 3.16 K/uL (1.4-6.5); Platelet Count 309 K/uL (130-400); RDW Coefficient of Variation 11.6 % (11.5-14.5); RDW Standard Deviation 40.2 fL (36.4-46.3); Red Blood Count 3.75 M/uL (4.2-5.4); White Blood Count 6.73 K/uL (4.8-10.8)
[2021-11-08 09:56] LABS: Albumin Globulin Ratio 1.7 (0.9-2); Albumin Level 3.7 gm/dl (3.4-5.0); BUN Creatinine Ratio 33.8 (10-20); Bilirubin,Total 0.4 mg/dl (0.2-1.0); Calcium 8.8 mg/dl (8.5-10.1); Creatinine Clr Calc Pharmacy 97.6 ml/min; Est GFR (African American) 139.1 ml/min; Globulin 2.2 gm/dl (2.5-4.0); Magnesium 2.2 mg/dl (1.7-2.4); Phosphorus 4.3 mg/dl (2.5-4.9); Total Protein 5.9 gm/dl (6.0-8.3)
[2021-11-08] MEDS: TPN RATE CHANGE SCH ×2 (13:32→22:09)
[2021-11-08] MEDS: LACTATED RINGER'S 1,000 ML IV SCH (15:28)
[2021-11-08] MEDS ORDERED: [UNRECOGNIZED DRUG - OTHER] IV SCH (21:00)
[2021-11-08] MEDS ORDERED: AMINO ACID 8% IV SCH (21:00)
[2021-11-08] MEDS ORDERED: CENTRAL TPN IV SCH (21:00)
--- NOTE | 2021-11-08 21:13 | Hospitalist Progress Note ---
Date of Service November 08, 2021 Assessment & Plan (1) Elevated lipase: Plan: lipase 160 yesterday and 192 today. previous level was 21 on 10/30/21. unclear if truly has acute pancreatitis but certainly possible. recent triglycerides wnl. in light of #2 and now the elevated lipase and recent "colitis" on CT -- viral induced? other? cont dilaudid q3h prn pain. cont g-tube - intermittent low-wall suction. anti-emetics. TPN w/o lipids again today. repeat lipase in am. consider repeat imaging if any further worsening but prior CT without any biliary obstruction. appreciate GI consult/input. (2) Transaminitis: Plan: 2nd to recent zosyn use? viral process? other? either way it is improving. cont to hold lipids zosyn is off ast now normal. alt continues to trend down. repeat again in am (3) Abdominal pain, chronic, generalized: Plan: h/o SMA syndrome s/p surgical repair, GI dysmotility, prior jejunal intussusception. Patient with ileostomy, G-tube in place with latter in place for venting purposes. She is on chronic TPN for severe protein calorie malnutrition. She has chronic abd pain. Presented on 10/30/21 with acute worsening - etiology initially felt to be the "colitis" seen on CT but etiology of such was not certain. Everything improved, then acute worsening yesterday. acute pancreatitis? see above. (4) Nausea and vomiting: Plan: 2nd to chronic GI motility issues, adrenal insufficiency, other factors. Improved with placing g-tube back to ILWS rather than gravity. see #1 above. (5) Hypophosphatemia: Plan: Replaced and resolved (6) Flank pain: Plan: has not recurred u/s and CT without any acute findings. recent u/a wnl (7) Hyperglycemia: Plan: A1c is 5.3% only. stop lantus. cont novolog prn. BSGs wnl. (8) Colitis: Plan: Clinically resolved seen on admission CT etiology uncertain. s/p 5 day course of Zosyn -- now off antibiotics (9) Adrenal insufficiency: Plan: finished stress dose steroids cont hydrocortisone 15mg po qAM and 10mg po q afternoon tomorrow continue Florinef 0.2mg po qAM and 0.1mg po qpm (10) On total parenteral nutrition (TPN): Plan: LFTs are mildly elevated still - thought 2nd to zosyn hold lipids again today will repeat LFTs am (11) Leukocytosis: Plan: resolved (12) Gastrostomy tube in place: Plan: exchanged last year from G-J to just G tube as thought was that her J tube was causing intussusception place back to [facility] (13) Severe protein-calorie malnutrition: Plan: Severe protein-calorie malnutrition Continue TPN but hold lipids because of ast/alt being high TPN managed via [facility] awaiting small bowel transplant at [facility] (14) Candidiasis of mouth and esophagus: Plan: nystatin 5cc qid swish/spit improved (15) Ileostomy status: Plan: functioning well Plan: mother extensively updated at bedside once again today some progress overnight... Admission and Anticipated Discharge Date Admission Date: October 30, 2021 Subjective patient still with abdominal discomfort and nausea but improved relative to yesterday dry heaves improved taking some sips of clears ileostomy output about average g-tube is hooked to intermittent low-wall suction and is draining copious amounts of bile denies any new complaints no fever Review of Systems 2 Review of Systems: gen - no fevers or chills cv - no chest pain pulm - no cough musculo - no myalgias Physical Exam Physical Exam: gen - looks better today neck - no JVD mouth - thrush resolved; MMM chest - port in place - clean heart - RRR, s1 s2, no murmur lungs - CTA b/l abd - ileostomy with bag in place; g-tube in place hooked to catheter with bile; not as tender today to palpation; ND; soft ext - no edema, pulses 2+ b/l psych - more sprightly today Results & Data Results & Data ([place]) Vital Signs (Past 12 Hours) Vital Signs Temp Pulse Resp BP Pulse Ox 11/08/21 14:48 36.7 C 95 H 16 99/64 L 98 Laboratory Results Laboratory Results - last 24 hr 11/08/21 11/08/21 11/08/21 00:01 05:58 08:50 WBC 6.73 RBC 3.75 L Hgb 11.9 L Hct 35.9 L MCV 95.7 MCH 31.7 MCHC 33.1 RDW Std Deviation 40.2 RDW Coeff of Tim 11.6 Plt Count 309 MPV 10.4 Immature Gran % (Auto) 0.3 Neut % (Auto) 47.0 Lymph % (Auto) 38.2 [place] % (Auto) 12.2 Eos % (Auto) 2.2 Baso % (Auto) 0.1 Neut # (Auto) 3.16 Lymph # (Auto) 2.57 [place] # (Auto) 0.82 H Eos # (Auto) 0.15 Baso # (Auto) 0.01 Immature Gran # (Auto) 0.02 Sodium Potassium Chloride Carbon Dioxide Anion Gap BUN Creatinine Est Cr Clr Drug Dosing Est GFR ( Amer) Est GFR (Non-Af Amer) BUN/Creatinine Ratio Glucose POC Glucose 101 H 109 H Calcium Phosphorus Magnesium Total Bilirubin AST ALT Alkaline Phosphatase Total Protein Albumin Globulin Albumin/Globulin Ratio Amylase Lipase 11/08/21 11/08/21 11/08/21 08:50 12:01 17:52 WBC RBC Hgb Hct MCV MCH MCHC RDW Std Deviation RDW Coeff of Tim Plt Count MPV Immature Gran % (Auto) Neut % (Auto) Lymph % (Auto) [place] % (Auto) Eos % (Auto) Baso % (Auto) Neut # (Auto) Lymph # (Auto) [place] # (Auto) Eos # (Auto) Baso # (Auto) Immature Gran # (Auto) Sodium 142 Potassium 4.0 Chloride 107 Carbon Dioxide 29 Anion Gap 6 BUN 22 Creatinine 0.65 Est Cr Clr Drug Dosing 97.6 Est GFR ( Amer) 139.1 Est GFR (Non-Af Amer) 120.0 BUN/Creatinine Ratio 33.8 H Glucose 101 H POC Glucose 101 H 88 Calcium 8.8 Phosphorus 4.3 Magnesium 2.2 Total Bilirubin 0.4 AST 24 ALT 122 H Alkaline Phosphatase 40 Total Protein 5.9 L Albumin 3.7 Globulin 2.2 L Albumin/Globulin Ratio 1.7 Amylase 54 Lipase 192 H PG Care Time/CCT Total # of Minutes Spent Total Time Spent with Patient: Total time spent is greater than 50% in coordination of care (as documented) at patient's floor/unit and/or counseling patient: Coding Level of Care Code 29728 Subseq Hosp Care Lvl 2 Diagnoses Elevated lipase R74.8 Transaminitis R74.01 Abdominal pain, chronic, generalized R10.84; G89.29 Nausea and vomiting R11.2 Hypophosphatemia E83.39 Flank pain R10.9 Hyperglycemia R73.9 Colitis K52.9 Adrenal insufficiency E27.40 On total parenteral nutrition (TPN) Z78.9 Leukocytosis D72.829 Leukocytosis type: unspecified Gastrostomy tube in place Z93.1 Severe protein-calorie malnutrition E43 Candidiasis of mouth and esophagus B37.81; B37.0 Ileostomy status Z93.2 (1) Leukocytosis Leukocytosis type: unspecified Qualified Code(s): D72.829 - Elevated white blood cell count, unspecified
[2021-11-08] MEDS: FEXOFENADINE HCL 180 MG TAB PO SCH (21:15)
--- NOTE | 2021-11-08 23:30 | Communication Note ---
Date of Service: November 08, 2021 Messaged by nursing about q6h BSG checks. Changing to qhs as it is presumed patient will have BMP in mornings. Removing SSI as patient has not needed any c orrectional insulin insulin in past 2 days. If BSGs >200, can consider re-adding SSI.
[2021-11-09] MEDS: HYDROmorphone INJ 1 MG/ML SYRINGE IV PRN ×7 (00:58→22:05)
[2021-11-09] MEDS: LORazepam 1 MG in SYRINGE 0.5 ML IV PRN ×3 (00:58→22:40)
[2021-11-09 07:23] LABS: Basophils # (auto) 0.01 K/uL (0-0.2); Basophils % (auto) 0.1 %; Eosinophils # (auto) 0.15 K/uL (0-0.5); Eosinophils % (auto) 1.8 %; Hematocrit (blood only) 34.6 % (37-47); Hemoglobin 11.5 g/dL (12.0-16.0); Immature Granulocytes # (auto) 0.02 K/uL (0.00-0.02); Immature Granulocytes % (auto) 0.2 %; Lymphocytes # (auto) 1.77 K/uL (1.2-3.4); Mean Corpuscular Hemoglobin 32.2 pg (25-34); Mean Corpuscular Hgb Conc 33.2 g/dL (32-36); Mean Corpuscular Volume 96.9 fL (80-100); Mean Platelet Volume 10.3 fL (7.4-10.4); Monocytes # (auto) 0.93 K/uL (0.11-0.59); Neutrophils # (auto) 5.56 K/uL (1.4-6.5); Neutrophils % (auto) 65.9 %; Platelet Count 310 K/uL (130-400); RDW Coefficient of Variation 11.6 % (11.5-14.5); RDW Standard Deviation 40.7 fL (36.4-46.3); Red Blood Count 3.57 M/uL (4.2-5.4); White Blood Count 8.44 K/uL (4.8-10.8)
[2021-11-09 07:38] LABS: Albumin Globulin Ratio 1.7 (0.9-2); Albumin Level 3.6 gm/dl (3.4-5.0); BUN Creatinine Ratio 36.2 (10-20); Bilirubin,Total 0.4 mg/dl (0.2-1.0); Calcium 8.3 mg/dl (8.5-10.1); Creatinine Clr Calc Pharmacy 109.4 ml/min; Est GFR (African American) 144.4 ml/min; Est GFR (Non-African American) 124.6 ml/min; Globulin 2.1 gm/dl (2.5-4.0); Phosphorus 4.2 mg/dl (2.5-4.9); Potassium 3.9 mmol/L (3.5-5.1); Total Protein 5.7 gm/dl (6.0-8.3)
[2021-11-09] MEDS: GABAPENTIN 250 MG/5 ML 470 ML BTL GT SCH ×3 (08:59→22:40)
[2021-11-09] MEDS: NYSTATIN SUSP 500,000 U/5 ML UDC PO SCH ×4 (08:59→22:08)
[2021-11-09] MEDS: FAMOTIDINE 20 MG TAB PO SCH ×2 (09:00→22:09)
[2021-11-09] MEDS: FLUDROCORTISONE ACETATE 0.1 MG TAB PO SCH ×2 (09:01→16:27)
[2021-11-09] MEDS: HYDROCORTISONE 10 MG TAB PO SCH ×2 (09:02→16:27)
[2021-11-09] MEDS: PANTOprazole 40 MG TAB PO SCH (09:02)
[2021-11-09] MEDS: LACTATED RINGER'S 1,000 ML IV SCH (10:07)
[2021-11-09] MEDS: ONDANSETRON INJ 2 MG/ML 2 ML VIAL IV PRN (10:14)
--- NOTE | 2021-11-09 12:31 | Gastroenterology Progress Note ---
Date of Service November 09, 2021 Assessment & Plan (1) Intestinal motility disorder: (2) Abdominal pain, chronic, generalized: (3) Nausea: (4) On total parenteral nutrition (TPN): (5) Gastrostomy tube in place: (6) Ileostomy status: (7) Elevated lipase: (8) Transaminitis: (9) Hyperglycemia: Plan: Impression is no significant change in clinical status over the past 24 hours. Ms Garcia reports feeling a little better on rounds today, no complaints of worsening abdominal pain or nausea. Lipase level remains elevated, without source of this change identified, and without any clinical changes to suggest an episode of acute pancreatitis. I do not think this needs any further evaluation or change in plan of care other than to follow daily serum lipase levels and a daily liver test profile. This was discussed with Ms. Garcia and all questions answered. Admission and Anticipated Discharge Date Admission Date: October 30, 2021 Subjective Ms. Garcia reports an overall feeling of improvement on rounds today, she had an episode of sharp shooting epigastric pain during the night which resolved immediately, no other problems. G tube drainage was 700 ml yesterday, oral intake was not measured, but so far today she has had around 30 ounces of clear liquids. The ileostomy output yesterday was not measured, patient reports having to change the bag once, she reports no problems with ileostomy output Review of Systems Constitutional: no fever, no sweats, no body aches, no fatigue and no weakness Respiratory: no problem reported Cardiovascular: no chest pain, no dyspnea and no lightheadedness Gastrointestinal: as per Subjective / HPI Neurologic: no unsteadiness, no localized weakness and no generalized weakness Physical Exam Constitutional: + thin and + underweight; + not well nourished and no acute distress Respiratory: normal respiratory effort, lungs clear to auscultation Cardiovascular: RRR, no murmur, no edema Gastrointestinal (Abdomen): Inspection/Auscultation: + hypoactive bowel sounds Percussion/Palpation: abdomen soft; abdomen nontender and no guarding No problems noted at G tube stoma or at ileostomy stoma Neurologic: moves all extremities; no focal motor deficits Psychiatric: A+Ox3, euthymic affect Results & Data ([facility]) Vital Signs (Past 12 Hours) Vital Signs Temp Pulse Resp BP Pulse Ox 11/09/21 08:35 100/72 11/09/21 08:06 36.2 C L 85 16 110/77 97 Laboratory Results 11/09/21 11/09/21 11/09/21 Range/Units 06:16 06:16 06:16 WBC 8.44 (4.8-10.8) K/uL RBC 3.57 L (4.2-5.4) M/uL Hgb 11.5 L (12.0-16.0) g/dL Hct 34.6 L (37-47) % MCV 96.9 (80-100) fL MCH 32.2 (25-34) pg MCHC 33.2 (32-36) g/dL RDW Std Deviation 40.7 (36.4-46.3) fL RDW Coeff of Tim 11.6 (11.5-14.5) % Plt Count 310 (130-400) K/uL MPV 10.3 (7.4-10.4) fL Immature Gran % (Auto) 0.2 % Neut % (Auto) 65.9 % Lymph % (Auto) 21.0 % [place] % (Auto) 11.0 % Eos % (Auto) 1.8 % Baso % (Auto) 0.1 % Neut # (Auto) 5.56 (1.4-6.5) K/uL Lymph # (Auto) 1.77 (1.2-3.4) K/uL [place] # (Auto) 0.93 H (0.11-0.59) K/uL Eos # (Auto) 0.15 (0-0.5) K/uL Baso # (Auto) 0.01 (0-0.2) K/uL Immature Gran # (Auto) 0.02 (0.00-0.02) K/uL Sodium 140 (136-145) mmol/L Potassium 3.9 (3.5-5.1) mmol/L Chloride 106 (98-107) mmol/L Carbon Dioxide 30 (21-32) mmol/L Anion Gap 4 (3-11) BUN 21 (6-23) mg/dl Creatinine 0.58 L (0.6-1.2) mg/dl Est Cr Clr Drug Dosing 109.4 ml/min Est GFR ( Amer) 144.4 ml/min Est GFR (Non-Af Amer) 124.6 ml/min BUN/Creatinine Ratio 36.2 H (10-20) Glucose 110 H (70-99(Fasting)) mg/dl POC Glucose (70-99) mg/dl Calcium 8.3 L (8.5-10.1) mg/dl Phosphorus 4.2 (2.5-4.9) mg/dl Magnesium 2.0 (1.7-2.4) mg/dl Total Bilirubin 0.4 (0.2-1.0) mg/dl AST 18 (13-39) U/L ALT 91 H (7-52) U/L Alkaline Phosphatase 39 (34-104) U/L Total Protein 5.7 L (6.0-8.3) gm/dl Albumin 3.6 (3.4-5.0) gm/dl Globulin 2.1 L (2.5-4.0) gm/dl Albumin/Globulin Ratio 1.7 (0.9-2) Lipase 164 H (11-82) U/L 11/08/21 Range/Units 17:52 WBC (4.8-10.8) K/uL RBC (4.2-5.4) M/uL Hgb (12.0-16.0) g/dL Hct (37-47) % MCV (80-100) fL MCH (25-34) pg MCHC (32-36) g/dL RDW Std Deviation (36.4-46.3) fL RDW Coeff of Tim (11.5-14.5) % Plt Count (130-400) K/uL MPV (7.4-10.4) fL Immature Gran % (Auto) % Neut % (Auto) % Lymph % (Auto) % [place] % (Auto) % Eos % (Auto) % Baso % (Auto) % Neut # (Auto) (1.4-6.5) K/uL Lymph # (Auto) (1.2-3.4) K/uL [place] # (Auto) (0.11-0.59) K/uL Eos # (Auto) (0-0.5) K/uL Baso # (Auto) (0-0.2) K/uL Immature Gran # (Auto) (0.00-0.02) K/uL Sodium (136-145) mmol/L Potassium (3.5-5.1) mmol/L Chloride (98-107) mmol/L Carbon Dioxide (21-32) mmol/L Anion Gap (3-11) BUN (6-23) mg/dl Creatinine (0.6-1.2) mg/dl Est Cr Clr Drug Dosing ml/min Est GFR ( Amer) ml/min Est GFR (Non-Af Amer) ml/min BUN/Creatinine Ratio (10-20) Glucose (70-99(Fasting)) mg/dl POC Glucose 88 (70-99) mg/dl Calcium (8.5-10.1) mg/dl Phosphorus (2.5-4.9) mg/dl Magnesium (1.7-2.4) mg/dl Total Bilirubin (0.2-1.0) mg/dl AST (13-39) U/L ALT (7-52) U/L Alkaline Phosphatase (34-104) U/L Total Protein (6.0-8.3) gm/dl Albumin (3.4-5.0) gm/dl Globulin (2.5-4.0) gm/dl Albumin/Globulin Ratio (0.9-2) Lipase (11-82) U/L
[2021-11-09] MEDS: TPN RATE CHANGE SCH ×2 (14:09→23:13)
[2021-11-09] MEDS ORDERED: AMINO ACID 8% IV SCH (21:00)
[2021-11-09] MEDS ORDERED: CENTRAL TPN IV SCH (21:00)
[2021-11-09] MEDS ORDERED: [UNRECOGNIZED DRUG - OTHER] IV SCH (21:00)
--- NOTE | 2021-11-09 21:15 | Hospitalist Progress Note ---
Date of Service November 09, 2021 Assessment & Plan (1) Elevated lipase: Plan: lipase has peaked and is trending down slowly. most recent normal level was 21 on 10/30/21. unclear if truly has acute pancreatitis but certainly possible given acute/chronic pain several days ago. recent triglycerides wnl. cause of elevated lipase.... viral? lipids in TPN? other? regardless of cause she is biochemically & clinically improving. cont dilaudid q3h prn pain. cont g-tube - intermittent low-wall suction. hopefully change to gravity tomorrow. anti-emetics. TPN w/o lipids again today. repeat lipase in am. appreciate GI consult/input. (2) Transaminitis: Plan: 2nd to recent zosyn use? viral process? other? IMPROVING. AST has normalized. ALT continues to fall - nearly normal. cont to hold lipids zosyn is off repeat ALT in am (3) Abdominal pain, chronic, generalized: Plan: h/o SMA syndrome s/p surgical repair, GI dysmotility, prior jejunal intussusception. Patient with ileostomy, G-tube in place with latter in place for venting purposes. She is on chronic TPN for severe protein calorie malnutrition. She has chronic abd pain. Presented on 10/30/21 with acute worsening - etiology initially felt to be the "colitis" seen on CT but etiology of such was not certain. Everything improved, then acute worsening earlier this week. acute pancreatitis? pain improving. see above. (4) Nausea and vomiting: Plan: resolved. 2nd to chronic GI motility issues, adrenal insufficiency, ?mild acute pancreatitis?, other factors. Improved with placing g-tube back to [facility]. see #1 above. (5) Hypophosphatemia: Plan: Replaced and resolved (6) Flank pain: Plan: has not recurred u/s and CT without any acute findings. recent u/a wnl (7) Hyperglycemia: Plan: A1c is 5.3% only. stop lantus. stop BSG checks. (8) Colitis: Plan: Clinically resolved seen on admission CT etiology uncertain. s/p 5 day course of Zosyn -- now off antibiotics (9) Adrenal insufficiency: Plan: finished stress dose steroids cont hydrocortisone 15mg po qAM and 10mg po q afternoon tomorrow continue Florinef 0.2mg po qAM and 0.1mg po qpm (10) On total parenteral nutrition (TPN): Plan: hold lipids again today if lipase and ALT cont to fall add back lipids tomorrow or Thursday (11) Leukocytosis: Plan: resolved (12) Gastrostomy tube in place: Plan: exchanged last year from G-J to just G tube as thought was that her J tube was causing intussusception place back to ILWS (13) Severe protein-calorie malnutrition: Plan: Severe protein-calorie malnutrition Continue TPN but hold lipids because of ast/alt being high TPN managed via [facility] awaiting small bowel transplant at [facility] (14) Candidiasis of mouth and esophagus: Plan: nystatin 5cc qid swish/spit improved (15) Ileostomy status: Plan: functioning well Plan: mother extensively updated at bedside once again today cont to make slow progress hopefully we can make g-tube to gravity tomorrow, stop IV fluids, advance diet, wean dilaudid next 1-2 days Admission and Anticipated Discharge Date Admission Date: October 30, 2021 Subjective patient having better day today feeling a "little better" no dry heaves or emesis copious bilious drainage via g-tube hooked to ILWS abd pain improved did go outside with her mother to get fresh air no new complaints Review of Systems Review of Systems: gen - no fevers or chills cv - no cp pulm - no cough GI - had a "sharp pain that radiated to her back" overnight - short-lived Physical Exam Physical Exam: gen - again looks better today neck - no JVD chest - port in place - clean heart - RRR, s1 s2, no murmur lungs - CTA b/l abd - ileostomy with bag in place; g-tube in place hooked to suction with bilious drainage; nontender; BS+ ext - no edema, pulses 2+ b/l psych - a/o x 3 Results & Data Results & Data ([facility]) Vital Signs (Past 12 Hours) Vital Signs Temp Pulse Resp BP Pulse Ox 11/09/21 16:24 103/67 11/09/21 15:00 36.7 C 94 H 16 99/63 L 99 Laboratory Results Laboratory Results - last 24 hr 11/09/21 11/09/21 11/09/21 06:16 06:16 06:16 WBC 8.44 RBC 3.57 L Hgb 11.5 L Hct 34.6 L MCV 96.9 MCH 32.2 MCHC 33.2 RDW Std Deviation 40.7 RDW Coeff of Tim 11.6 Plt Count 310 MPV 10.3 Immature Gran % (Auto) 0.2 Neut % (Auto) 65.9 Lymph % (Auto) 21.0 [place] % (Auto) 11.0 Eos % (Auto) 1.8 Baso % (Auto) 0.1 Neut # (Auto) 5.56 Lymph # (Auto) 1.77 [place] # (Auto) 0.93 H Eos # (Auto) 0.15 Baso # (Auto) 0.01 Immature Gran # (Auto) 0.02 Sodium 140 Potassium 3.9 Chloride 106 Carbon Dioxide 30 Anion Gap 4 BUN 21 Creatinine 0.58 L Est Cr Clr Drug Dosing 109.4 Est GFR ( Amer) 144.4 Est GFR (Non-Af Amer) 124.6 BUN/Creatinine Ratio 36.2 H Glucose 110 H Calcium 8.3 L Phosphorus 4.2 Magnesium 2.0 Total Bilirubin 0.4 AST 18 ALT 91 H Alkaline Phosphatase 39 Total Protein 5.7 L Albumin 3.6 Globulin 2.1 L Albumin/Globulin Ratio 1.7 Lipase 164 H PG Care Time/CCT Total # of Minutes Spent Total Time Spent with Patient: Total time spent is greater than 50% in coordination of care (as documented) at patient's floor/unit and/or counseling patient: Coding Level of Care Code 54080 Subseq Hosp Care Lvl 2 Diagnoses Elevated lipase R74.8 Transaminitis R74.01 Abdominal pain, chronic, generalized R10.84; G89.29 Nausea and vomiting R11.2 Hypophosphatemia E83.39 Flank pain R10.9 Hyperglycemia R73.9 Colitis K52.9 Adrenal insufficiency E27.40 On total parenteral nutrition (TPN) Z78.9 Leukocytosis D72.829 Leukocytosis type: unspecified Gastrostomy tube in place Z93.1 Severe protein-calorie malnutrition E43 Candidiasis of mouth and esophagus B37.81; B37.0 Ileostomy status Z93.2 (1) Leukocytosis Leukocytosis type: unspecified Qualified Code(s): D72.829 - Elevated white blood cell count, unspecified
[2021-11-09] MEDS: FEXOFENADINE HCL 180 MG TAB PO SCH (22:08)
[2021-11-10] MEDS: HYDROmorphone INJ 1 MG/ML SYRINGE IV PRN ×8 (01:11→23:19)
[2021-11-10] MEDS: LACTATED RINGER'S 1,000 ML IV SCH ×2 (04:39→17:54)
[2021-11-10 07:45] LABS: BUN Creatinine Ratio 33.9 (10-20); Calcium 8.2 mg/dl (8.5-10.1); Creatinine Clr Calc Pharmacy 109.7 ml/min; Phosphorus 3.8 mg/dl (2.5-4.9); Potassium 3.9 mmol/L (3.5-5.1)
[2021-11-10] MEDS: NYSTATIN SUSP 500,000 U/5 ML UDC PO SCH ×4 (09:59→20:23)
[2021-11-10] MEDS: HYDROCORTISONE 10 MG TAB PO SCH ×2 (10:00→17:08)
[2021-11-10] MEDS: FAMOTIDINE 20 MG TAB PO SCH ×2 (10:02→20:22)
[2021-11-10] MEDS: GABAPENTIN 250 MG/5 ML 470 ML BTL GT SCH ×3 (10:03→20:30)
[2021-11-10] MEDS: PANTOprazole 40 MG TAB PO SCH (10:03)
[2021-11-10] MEDS: FLUDROCORTISONE ACETATE 0.1 MG TAB PO SCH ×2 (10:04→17:09)
[2021-11-10] MEDS: ONDANSETRON INJ 2 MG/ML 2 ML VIAL IV PRN ×2 (10:43→18:40)
--- NOTE | 2021-11-10 12:30 | Gastroenterology Progress Note ---
Date of Service November 10, 2021 Assessment & Plan (1) Intestinal motility disorder: (2) Abdominal pain, chronic, generalized: (3) Nausea: (4) On total parenteral nutrition (TPN): (5) Gastrostomy tube in place: (6) Ileostomy status: (7) Elevated lipase: (8) Transaminitis: (9) Hyperglycemia: (10) SMAS (superior mesenteric artery syndrome): Plan: History of SMAS Plan: Clinically Ms. Garcia is improving and ALT and lipase are decreasing. Recommend reduce the frequency of blood draws, and agree with plan of care of primary care team. As the consulting I have spent _15____ minutes of discrete time performing the activities of this consultation which include but are not limited to: 1. Review of past and current medical records 2. Patient interview, physical examination, discussion of the assessment and plan of care with the patient and family if present 3. Documentation of the consultation in the medical record including orders and discussion of the plan of care with members of the healthcare team Admission and Anticipated Discharge Date Admission Date: October 30, 2021 Subjective Ms. Garcia notes continued improvement in symptoms today, no new problems, and is starting to think about hospital discharge Review of Systems Constitutional: + fatigue and + anorexia; no fever, no chills, no sweats and no increased appetite Respiratory: no cough and no dyspnea Cardiovascular: no chest pain Gastrointestinal: as per Subjective / HPI Physical Exam Respiratory: normal respiratory effort, lungs clear to auscultation Cardiovascular: RRR, no murmur, no edema Gastrointestinal (Abdomen): Inspection/Auscultation: + scaphoid and + hypoactive bowel sounds Percussion/Palpation: abdomen soft; abdomen nontender and no guarding G tube to wall suction, Ileostomy draining normally Neurologic: Alert, oriented, no focal neurologic signs Results & Data ([facility]) Vital Signs (Past 12 Hours) Vital Signs Temp Pulse Resp BP Pulse Ox 11/10/21 05:53 36.8 C 69 16 97/61 L 98 Laboratory Results Laboratory Results WBC 8.44 K/uL (4.8-10.8) 11/09/21 06:16 RBC 3.57 M/uL (4.2-5.4) L 11/09/21 06:16 Hgb 11.5 g/dL (12.0-16.0) L 11/09/21 06:16 Hct 34.6 % (37-47) L 11/09/21 06:16 MCV 96.9 fL (80-100) 11/09/21 06:16 MCH 32.2 pg (25-34) 11/09/21 06:16 MCHC 33.2 g/dL (32-36) 11/09/21 06:16 RDW Std Deviation 40.7 fL (36.4-46.3) 11/09/21 06:16 RDW Coeff of Tim 11.6 % (11.5-14.5) 11/09/21 06:16 Plt Count 310 K/uL (130-400) 11/09/21 06:16 MPV 10.3 fL (7.4-10.4) 11/09/21 06:16 Immature Gran % (Auto) 0.2 % 11/09/21 06:16 Neut % (Auto) 65.9 % 11/09/21 06:16 Lymph % (Auto) 21.0 % 11/09/21 06:16 [place] % (Auto) 11.0 % 11/09/21 06:16 Eos % (Auto) 1.8 % 11/09/21 06:16 Baso % (Auto) 0.1 % 11/09/21 06:16 Neut # (Auto) 5.56 K/uL (1.4-6.5) 11/09/21 06:16 Lymph # (Auto) 1.77 K/uL (1.2-3.4) 11/09/21 06:16 [place] # (Auto) 0.93 K/uL (0.11-0.59) H 11/09/21 06:16 Eos # (Auto) 0.15 K/uL (0-0.5) 11/09/21 06:16 Baso # (Auto) 0.01 K/uL (0-0.2) 11/09/21 06:16 Immature Gran # (Auto) 0.02 K/uL (0.00-0.02) 11/09/21 06:16 Sodium 141 mmol/L (136-145) 11/10/21 06:16 Potassium 3.9 mmol/L (3.5-5.1) 11/10/21 06:16 Chloride 107 mmol/L (98-107) 11/10/21 06:16 Carbon Dioxide 31 mmol/L (21-32) 11/10/21 06:16 Anion Gap 3 (3-11) 11/10/21 06:16 BUN 19 mg/dl (6-23) 11/10/21 06:16 Creatinine 0.56 mg/dl (0.6-1.2) L 11/10/21 06:16 Est Cr Clr Drug Dosing 109.7 ml/min 11/10/21 06:16 Est GFR ( Amer) 146.0 ml/min 11/10/21 06:16 Est GFR (Non-Af Amer) 126.0 ml/min 11/10/21 06:16 BUN/Creatinine Ratio 33.9 (10-20) H 11/10/21 06:16 Glucose 117 mg/dl (70-99(Fasting)) H 11/10/21 06:16 POC Glucose 88 mg/dl (70-99) 11/08/21 17:52 Estimat Average Glucose 105 mg/dl 11/06/21 10:39 Hemoglobin A1c 5.3 % (4.5-5.6) 11/06/21 10:39 Lactate 1.2 mmol/L (0.4-2.0) 11/02/21 07:15 Calcium 8.2 mg/dl (8.5-10.1) L 11/10/21 06:16 Phosphorus 3.8 mg/dl (2.5-4.9) 11/10/21 06:16 Magnesium 2.0 mg/dl (1.7-2.4) 11/10/21 06:16 Total Bilirubin 0.4 mg/dl (0.2-1.0) 11/09/21 06:16 Direct Bilirubin 0.0 mg/dl (0-0.2) 11/03/21 07:09 AST 18 U/L (13-39) 11/09/21 06:16 ALT 69 U/L (7-52) H 11/10/21 06:16 Alkaline Phosphatase 39 U/L (34-104) 11/09/21 06:16 Total Creatine Kinase 32 U/L (26-192) 11/02/21 07:15 Total Protein 5.7 gm/dl (6.0-8.3) L 11/09/21 06:16 Albumin 3.6 gm/dl (3.4-5.0) 11/09/21 06:16 Globulin 2.1 gm/dl (2.5-4.0) L 11/09/21 06:16 Albumin/Globulin Ratio 1.7 (0.9-2) 11/09/21 06:16 Triglycerides 98 mg/dl (0-150) 11/07/21 08:46 Amylase 54 U/L (25-115) 11/08/21 08:50 Lipase 127 U/L (11-82) H 11/10/21 06:16 Procalcitonin 0.05 ng/ml (0-0.5) 10/31/21 04:03 Urine Color Yellow 10/30/21 17:00 Urine Appearance Clear (Clear) 10/30/21 17:00 Urine pH 6.0 (4.5-7.5) 10/30/21 17:00 Ur Specific [place] 1.008 (1.000-1.030) 10/30/21 17:00 Urine Protein Negative (Negative) 10/30/21 17:00 Urine Glucose (UA) Negative (Negative) 10/30/21 17:00 Urine Ketones Negative (Negative) 10/30/21 17:00 Urine Blood Negative (Negative) 10/30/21 17:00 Urine Nitrite Negative (Negative) 10/30/21 17:00 Urine Bilirubin Negative (Negative) 10/30/21 17:00 Urine Urobilinogen Negative (Negative) 10/30/21 17:00 Ur Leukocyte Esterase Negative (Negative) 10/30/21 17:00 Stl C. cayetanensis PCR Not Detected (NotDetected) 11/01/21 05:53 Stool Rotavirus A PCR Not Detected (NotDetected) 11/01/21 05:53 Stl Adenov F 40/41 PCR Not Detected (NotDetected) 11/01/21 05:53 Stool Astrovirus (PCR) Not Detected (NotDetected) 11/01/21 05:53 Stool Campylobacter PCR Not Detected (NotDetected) 11/01/21 05:53 Stl C.difficile Tox A&B Negative Cdiff Toxin (Negative) 11/01/21 05:53 Stl C. diff Tox A/B PCR C.diff Gene Detected (NotDetected) A 11/01/21 05:53 Stool Cryptosporidium PCR Not Detected (NotDetected) 11/01/21 05:53 Stl E.coli Shiga Tox PCR Not Detected (NotDetected) 11/01/21 05:53 Stl Enterotoxigenic E PCR Not Detected (NotDetected) 11/01/21 05:53 Stool EPEC (PCR) Not Detected (NotDetected) 11/01/21 05:53 Stool EAEC (PCR) Not Detected (NotDetected) 11/01/21 05:53 Stl E. histolytica PCR Not Detected (NotDetected) 11/01/21 05:53 Stool Giardia Lamblia PCR Not Detected (NotDetected) 11/01/21 05:53 Stool Salmonella PCR Not Detected (NotDetected) 11/01/21 05:53 Stool Sapovirus (PCR) Not Detected (NotDetected) 11/01/21 05:53 Stl P. shigelloides PCR Not Detected (NotDetected) 11/01/21 05:53 Stl Shigella/EIEC PCR Not Detected (NotDetected) 11/01/21 05:53 St Y.enterocolitica PCR Not Detected (NotDetected) 11/01/21 05:53 Stool Vibrio (PCR) Not Detected (NotDetected) 11/01/21 05:53 Stl Vibrio cholerae PCR Not Detected (NotDetected) 11/01/21 05:53 Stl Norovirus GI/GII PCR Not Detected (NotDetected) 11/01/21 05:53 SARS-CoV-2, RNA, NAAT NEGATIVE (NEGATIVE) 10/30/21 Unknown Beta-(1,3)-D-Glucan <31 pg/mL 10/31/21 04:03 B-(1,3)-D-Glucan Intrp NEGATIVE 10/31/21 04:03 Impressions Chest X-Ray 10/30/21 15:14 SINGLE VIEW CHEST CLINICAL HISTORY: Vomiting. FINDINGS: An AP, portable, upright chest radiograph is compared to study dated 06/18/2021. A right subclavian central venous infusion port is unchanged in position. The cardiomediastinal silhouette is unremarkable. There is minimal elevation of the right hemidiaphragm. The lungs and pleural spaces are clear. No pneumothorax is seen. The bony thorax is grossly intact. There is mild spinal scoliosis. IMPRESSION: No active disease in the chest. ACT 112: Negative or not required by law. Electronically signed by: Kirk Burgos M.D. 10/30/2021 4:11 PM Abdomen/Pelvis CT 10/30/21 18:32 CT OF THE ABDOMEN AND PELVIS WITH CONTRAST CLINICAL HISTORY: Abdominal pain and vomiting. COMPARISON STUDY: KUB performed earlier today. CT of the abdomen and pelvis June 17, 2021. TECHNIQUE: Following IV administration of 95 mL of Optiray, axial images of the abdomen and pelvis were obtained from the lung bases to the proximal femurs. Images were reviewed in the axial, sagittal, and coronal planes. IV contrast was administered without complication. Automated exposure control was utilized for the study. A dose lowering technique was utilized adhering to the principles of ALARA. CT DOSE: 252.04 mGy.cm FINDINGS: Lung bases are unremarkable. No pneumatosis, free air or portal venous gas is present. There is no biliary ductal dilatation status post cholecystectomy. Liver, spleen, adrenal glands and kidneys are unremarkable. There is no hydronephrosis. Gastrostomy tube is in place. As before, the aortomesenteric angle and aortomesenteric distance are diminished. There is only slight dilatation of the duodenum. No convincing evidence for a bowel obstruction. Right lower quadrant ileostomy is present. Note is made of mild wall thickening with adjacent stranding of the distal descending and proximal sigmoid colon. Colon is underdistended. The appendix is not visualized. There is a corpus luteal cyst within the right ovary. Ovaries are not enlarged. No fluid collection to suggest an abscess is present. Major vasculature is patent. No intussusception is identified. Moderate amount stool within the right colon is present. IMPRESSION: 1. Mild wall thickening with adjacent stranding of the descending and proximal sigmoid colon. This favors a mild nonspecific colitis. 2. No bowel obstruction. Right lower quadrant ileostomy. 3. No intussusception. ACT 112: Negative or not required by law. Electronically signed by: Ruperto Lopez M.D. 10/30/2021 7:53 PM KUB X-Ray 11/01/21 08:25 KUB CLINICAL HISTORY: vomiting, h/o intussusception COMPARISON STUDY: KUB and CT of the abdomen and pelvis October 30, 2021. FINDINGS: Gastrostomy tube is in place. There are cholecystectomy clips. Surgical clips within the pelvis are noted. Paucity of bowel gas is noted. There is no radiographic evidence for a bowel obstruction. A right lower quadrant ostomy is noted. IMPRESSION: No radiographic evidence for a bowel obstruction. Paucity of bowel gas. ACT 112: Negative or not required by law. Electronically signed by: Ruperto Lopez M.D. 11/01/2021 9:52 AM Renal Ultrasound 11/02/21 12:38 RENAL ULTRASOUND CLINICAL HISTORY: Bilateral flank pain. Evaluate for hydronephrosis. COMPARISON STUDY: CT of the abdomen and pelvis October 30, 2021. TECHNIQUE: Sonography of the kidneys and the urinary bladder was performed. FINDINGS: Right kidney measures 9.8 cm in maximal dimension and the left measures 10.7 cm. There is no hydronephrosis. Renal echogenicity, size and cortical thickness are normal. There is no renal mass or calculus. Bladder is unremarkable. Ureteral jets were visualized. IMPRESSION: Normal renal ultrasound. No hydronephrosis. ACT 112: Negative or not required by law. Electronically signed by: Ruperto Lopez M.D. 11/02/2021 2:53 PM
[2021-11-10] MEDS: TPN RATE CHANGE SCH ×2 (13:54→22:23)
[2021-11-10] MEDS: LORazepam 1 MG in SYRINGE 0.5 ML IV PRN ×2 (14:00→23:18)
--- NOTE | 2021-11-10 19:59 | Hospitalist Progress Note ---
Date of Service November 10, 2021 Assessment & Plan (1) Elevated lipase: Plan: peaked & improving. unclear if truly has acute pancreatitis but certainly possible given she developed worsening pain several days ago. cause of elevated lipase.... viral? lipids in TPN? other? regardless of cause she is improving albeit slowly. cont dilaudid q3h prn pain. try stopping intermittent low-wall suction to g-tube, change to gravity bag. anti-emetics. TPN w/o lipids again today. repeat lipase in am. appreciate GI consult/input. of note - recent calcium level, triglycerides - all normal. she does not have a gall baldder. most recent CT a/p without biliary tract pathology. (2) Transaminitis: Plan: 2nd to recent zosyn use? viral process? other? IMPROVING. AST has normalized. ALT continues to fall - nearly normal in the 60s today. cont to hold lipids zosyn is off repeat ALT in 48 hours (3) Abdominal pain, chronic, generalized: Plan: h/o SMA syndrome s/p surgical repair, GI dysmotility, prior jejunal intussusception. Patient with ileostomy. Patient with G-tube - currently hooked to ILWS. She is on chronic TPN for severe protein calorie malnutrition. She has chronic abd pain. Presented on 10/30/21 with acute worsening - etiology initially felt to be the "colitis" seen on CT but etiology of such was not certain. Pain worsened late last week corresponding to elevated lipase. mild acute pancreatitis? pain improving fortunately. try stopping ILWS to g-tube -- change to gravity bag. re-eval tomorrow. (4) Nausea and vomiting: Plan: resolved. 2nd to chronic GI motility issues, adrenal insufficiency, ?mild acute pancreatitis?, other factors. Place g-tube to gravity today. (5) Hypophosphatemia: Plan: Replaced and resolved (6) Hyperglycemia: Plan: A1c is 5.3% only. stopped lantus. stopped novolog. stopped BSGs - glucose on BMPs acceptable. (7) Colitis: Plan: Clinically resolved seen on admission CT etiology uncertain. s/p 5 day course of Zosyn -- now off antibiotics had had blood and mild mucous via rectum before admission - this is now resolved (8) Adrenal insufficiency: Plan: finished stress dose steroids several days ago back on usual doses of hydrocortisone -- 15mg po qAM and 10mg po qafternoon continue Florinef 0.2mg po qAM and 0.1mg po qpm (9) On total parenteral nutrition (TPN): Plan: hold lipids again today if lipase and ALT cont to fall add back lipids upon return home (10) Gastrostomy tube in place: Plan: exchanged last year from G-J to just G tube as thought was that her J tube was causing intussusception placed back to [facility] 2 days ago because of intractable N/V stop such - try gravity bag again today (11) Severe protein-calorie malnutrition: Plan: Severe protein-calorie malnutrition Continue TPN but cont holding lipids because of ast/alt being high TPN managed via [facility] awaiting small bowel transplant at [facility] (12) Candidiasis of mouth and esophagus: Plan: nystatin 5cc qid swish/spit improved/resolving (13) Ileostomy status: Plan: functioning well Plan: mother extensively updated at bedside if she does ok overnight then start to wean IV dilaudid off with hopes of d/c home by Thursday Admission and Anticipated Discharge Date Admission Date: October 30, 2021 Subjective no major changes or events overnight feels "ok" she is hoping to get home in the next few days - asks if perhaps Thursday she can d/c home still requiring frequent narcotics and anti-emetics no dry heaves or emesis ileostomy output fair tolerating small amounts of PO liquid, crackers, etc pt's mother at bedside Review of Systems Review of Systems: gen - no fevers cv - no pain pulm - no cough, no dyspnea GI - abd pain similar to previous Physical Exam Physical Exam: gen - NAD neck - no JVD chest - port in place - clean heart - RRR, s1 s2, no murmur lungs - CTA b/l abd - ileostomy with bag in place; g-tube in place hooked to suction with bilious drainage in canister; nontender; BS+; g-tube site clean ext - no edema, pulses 2+ b/l psych - a/o x 3 Results & Data Results & Data ([facility]) Vital Signs (Past 12 Hours) Vital Signs Temp Pulse Resp BP Pulse Ox 11/10/21 15:31 36.8 C 88 18 109/72 98 Laboratory Results Laboratory Results - last 24 hr 11/10/21 06:16 Sodium 141 Potassium 3.9 Chloride 107 Carbon Dioxide 31 Anion Gap 3 BUN 19 Creatinine 0.56 L Est Cr Clr Drug Dosing 109.7 Est GFR ( Amer) 146.0 Est GFR (Non-Af Amer) 126.0 BUN/Creatinine Ratio 33.9 H Glucose 117 H Calcium 8.2 L Phosphorus 3.8 Magnesium 2.0 ALT 69 H Lipase 127 H PG Care Time/CCT Total # of Minutes Spent Total Time Spent with Patient: Total time spent is greater than 50% in coordination of care (as documented) at patient's floor/unit and/or counseling patient: Coding Level of Care Code 20548 Subseq Hosp Care Lvl 2 Diagnoses Elevated lipase R74.8 Transaminitis R74.01 Abdominal pain, chronic, generalized R10.84; G89.29 Nausea and vomiting R11.2 Hypophosphatemia E83.39 Hyperglycemia R73.9 Colitis K52.9 Adrenal insufficiency E27.40 On total parenteral nutrition (TPN) Z78.[address] Z93.1 Severe protein-calorie malnutrition E43 Candidiasis of mouth and esophagus B37.81; B37.0 Ileostomy status Z93.2
[2021-11-10] MEDS: FEXOFENADINE HCL 180 MG TAB PO SCH (20:23)
[2021-11-10] MEDS ORDERED: CENTRAL TPN IV SCH (21:00)
[2021-11-10] MEDS ORDERED: AMINO ACID 8% IV SCH (21:00)
[2021-11-10] MEDS ORDERED: [UNRECOGNIZED DRUG - OTHER] IV SCH (21:00)
[2021-11-11] MEDS: HYDROmorphone INJ 1 MG/ML SYRINGE IV PRN ×6 (03:30→22:27)
[2021-11-11] MEDS: ONDANSETRON INJ 2 MG/ML 2 ML VIAL IV PRN ×2 (07:44→22:22)
[2021-11-11] MEDS: FAMOTIDINE 20 MG TAB PO SCH ×2 (08:25→20:17)
[2021-11-11] MEDS: FLUDROCORTISONE ACETATE 0.1 MG TAB PO SCH ×2 (08:25→16:25)
[2021-11-11] MEDS: HYDROCORTISONE 10 MG TAB PO SCH ×2 (08:26→16:25)
[2021-11-11] MEDS: NYSTATIN SUSP 500,000 U/5 ML UDC PO SCH ×4 (08:27→20:18)
[2021-11-11] MEDS: PANTOprazole 40 MG TAB PO SCH (08:27)
--- NOTE | 2021-11-11 08:28 | Gastroenterology Progress Note ---
Date of Service November 11, 2021 Assessment & Plan (1) Intestinal motility disorder: Plan: Clinically patient seems to be improving. Her labs are pending so far this morning. She states she is feeling somewhat better. She states that she is really hopeful that she feels well enough to be able to be discharged today. Agree with supportive care measures in place by hospitalist team. Case reviewed with Dr. Queen. Please refer to supervising physician addendum for further recommendations. I have spent 15 minutes of discrete time performing the activities of this visit which include but are not limited to review of the medical record, obtaining a history, physical exam, and entering information in the electronic record. (2) Ileostomy status: (3) Severe protein-calorie malnutrition: (4) Abdominal pain, chronic, generalized: (5) Gastrostomy tube in place: Admission and Anticipated Discharge Date Admission Date: October 30, 2021 Supervising Physician Co-Signing Physician Notes I interviewed and examined the patient and reviewed the medical record, with the following observations: Subjective: Ms Garcia does note improvement in her digestive symptoms today, she generally feels better Physical Examination: No new findings Chart Review: ALT level continues to improve, Lipase level is fluctuating but has peaked several days ago I agree with the assessment as outlined in this consultation, with the following observations: I think liver test abnormalities were related to lipids in TPN, and lipase elevation not specific for pancreatitis, could be related to any inflammation in the abdomen. Clinically she is not acting as though she has acute pancreatitis I agree with the plan of care as outlined in this consultation, with the following changes and/or additions: Advance TPN and activity, reduce reliance on parenteral pain medication, change G tube to gravity drainage in preparation for discharge and outpatient management As the supervising physician, I have spent 20 minutes of discrete time performing the activities of this consultation which include, but are not limited to, review of the medical record, obtaining a history, physical examination, discussion with the patient and family, and entering information into the electronic record. YULISSA Lee, has reported spending 15 minutes of discrete time with the activities of the consultation. Subjective The patient is awake alert and oriented with her mother at bedside. She reports that abdominal pain continues intermittently. Overall feels okay. She is hoping she might be able to be well enough to discharge today. She states that suction on her G-tube is now off and is on gravity. She feels this is contributed to her increased pain and nausea. Continues to have increased nausea higher than her baseline. Denies any vomiting. Output from ostomy is slow but consistent with previous days. Review of Systems Gastrointestinal: + abdominal pain and + nausea Physical Exam Respiratory: normal respiratory effort, lungs clear to auscultation Cardiovascular: RRR, no murmur, no edema Gastrointestinal (Abdomen): Inspection/Auscultation: + scaphoid and + hypoactive bowel sounds Percussion/Palpation: abdomen soft; abdomen nontender and no guarding G tube to gravity suction, Ileostomy draining normally Neurologic: Alert, oriented, no focal neurologic signs Results & Data ([facility]) Vital Signs (Past 12 Hours) Vital Signs Temp Pulse Resp BP Pulse Ox 11/11/21 06:09 36.7 C 83 16 94/55 L 97 11/10/21 20:30 36.8 C 85 14 110/70 97
[2021-11-11] MEDS: GABAPENTIN 250 MG/5 ML 470 ML BTL GT SCH ×3 (08:35→20:18)
[2021-11-11 10:17] LABS: BUN Creatinine Ratio 31.9 (10-20); Calcium 8.7 mg/dl (8.5-10.1); Creatinine Clr Calc Pharmacy 88.5 ml/min; Est GFR (African American) 136.3 ml/min; Est GFR (Non-African American) 117.6 ml/min; Magnesium 2.1 mg/dl (1.7-2.4); Phosphorus 4.1 mg/dl (2.5-4.9); Potassium 4.1 mmol/L (3.5-5.1)
[2021-11-11] MEDS: LORazepam 1 MG in SYRINGE 0.5 ML IV PRN ×2 (13:20→18:37)
[2021-11-11] MEDS: TPN RATE CHANGE SCH ×2 (14:30→22:28)
[2021-11-11] MEDS ORDERED: CENTRAL TPN IV SCH (21:00)
[2021-11-11] MEDS ORDERED: [UNRECOGNIZED DRUG - OTHER] IV SCH (21:00)
[2021-11-11] MEDS ORDERED: AMINO ACID 8% IV SCH (21:00)
[2021-11-11] MEDS: FEXOFENADINE HCL 180 MG TAB PO SCH (21:17)
--- NOTE | 2021-11-11 23:02 | Hospitalist Progress Note ---
Date of Service November 11, 2021 Assessment & Plan (1) Elevated lipase: Plan: lipase has peaked and is trending down slowly. most recent normal level was 21 on 10/30/21. unclear if truly has acute pancreatitis but certainly possible given acute/chronic pain several days ago. recent triglycerides wnl. cause of elevated lipase.... viral? lipids in TPN? other? regardless of cause she is biochemically & clinically improving. plan - * hold lipids again in TPN; resume lipids upon return home * allow full liquid diet as desired/tolerated * wean dilaudid to q6h dosing * start norco elixir q4h prn via g-tube; discussed with Pilar that this is stronger than tramadol, but the relief she gets with this will be much less than dilaudid; she & mother voice understanding; they request that at d/c hydrocodone is prescribed in elixir form * try to cap g-tube later today (remove guardado gravity bag) * cont anti-emetics as needed (2) Transaminitis: Plan: 2nd to recent zosyn use? viral process? other? IMPROVING/resolving AST has normalized. ALT continues to fall - nearly normal. cont to hold lipids zosyn is off repeat lfts with lipase in am (3) Abdominal pain, chronic, generalized: Plan: h/o SMA syndrome s/p surgical repair, GI dysmotility, prior jejunal intussusception. Patient with ileostomy, G-tube in place with latter in place for venting purposes. She is on chronic TPN for severe protein calorie malnutrition. She has chronic abd pain. Presented on 10/30/21 with acute worsening - etiology initially felt to be the "colitis" seen on CT but etiology of such was not certain. Everything improved, then acute worsening earlier this week. acute pancreatitis? pain improving. lipase improving. overall she is improving. see above. (4) Nausea and vomiting: Plan: resolved. 2nd to chronic GI motility issues, adrenal insufficiency, ?mild acute pancreatitis?, other factors. stopped ILWS. now g-tube is to gravity. try to cap the g-tube later today. see #1 above. (5) Hypophosphatemia: Plan: Replaced and resolved (6) Hyperglycemia: Plan: A1c is 5.3% only. stop lantus. stop BSG checks. (7) Colitis: Plan: Clinically resolved seen on admission CT etiology uncertain. s/p 5 day course of Zosyn -- now off antibiotics (8) Adrenal insufficiency: Plan: finished stress dose steroids cont hydrocortisone 15mg po qAM and 10mg po q afternoon tomorrow continue Florinef 0.2mg po qAM and 0.1mg po qpm (9) On total parenteral nutrition (TPN): Plan: hold lipids again today plan to resume lipids upon d/c home (10) Gastrostomy tube in place: Plan: exchanged last year from G-J to just G tube as thought was that her J tube was causing intussusception see above re: gravity bag then capping her tube (11) Severe protein-calorie malnutrition: Plan: Severe protein-calorie malnutrition Continue TPN but hold lipids because of lipase elevation TPN managed via [facility] receives her TPN via [facility] awaiting small bowel transplant at [facility] (12) Candidiasis of mouth and esophagus: Plan: nystatin 5cc qid swish/spit improved/resolved probably prescribe 5 more days of Rx at discharge (13) Ileostomy status: Plan: functioning well Plan: mother extensively updated at bedside once again today anticipate d/c home tomorrow all prep work to resume TPN at home tomorrow has been completed Admission and Anticipated Discharge Date Admission Date: October 30, 2021 Subjective no events overnight g-tube was attached to guardado gravity bag all night and all am tolerating such ileostomy output is stable minimal dry heaving no vomiting of actual food/beverage abd pain stable no new complaints mother at bedside I spoke with [employer] sales representative - discussed resumption of TPN with lipids on 11/12 upon d/c home Review of Systems Review of Systems: gen - no fevers, no chills pulm - no cough or respiratory symptoms GI - all symptoms are at chronic baseline Physical Exam Physical Exam: gen - NAD, looks good today, good spirits neck - no JVD chest - port in place - clean heart - RRR, s1 s2, no murmur lungs - CTA b/l abd - ileostomy with bag in place - fair amount of liquid in the bag today; g- tube in place hooked to guardado gravity bag - mild amount of bilious liquid in guardado bag; nontender; BS+ ext - no edema, pulses 2+ b/l psych - a/o x 3 Results & Data Results & Data ([facility]) Vital Signs (Past 12 Hours) Vital Signs Temp Pulse Resp BP Pulse Ox 11/11/21 20:20 36.8 C 99 H 14 103/62 99 11/11/21 16:08 37 C 94 H 16 96/64 L 99 Laboratory Results Laboratory Results - last 24 hr 11/11/21 11/11/21 11/11/21 09:38 09:38 10:28 Sodium 140 Potassium 4.1 Chloride 106 Carbon Dioxide 29 Anion Gap 5 BUN 22 Creatinine 0.69 Est Cr Clr Drug Dosing 88.5 Est GFR ( Amer) 136.3 Est GFR (Non-Af Amer) 117.6 BUN/Creatinine Ratio 31.9 H Glucose 101 H Calcium 8.7 Ionized Calcium Cancelled 1.14 Phosphorus 4.1 Magnesium 2.1 Lipase 146 H PG Care Time/CCT Total # of Minutes Spent Total Time Spent with Patient: Total time spent is greater than 50% in coordination of care (as documented) at patient's floor/unit and/or counseling patient: Coding Level of Care Code 19282 Subseq Hosp Care Lvl 2 Diagnoses Elevated lipase R74.8 Transaminitis R74.01 Abdominal pain, chronic, generalized R10.84; G89.29 Nausea and vomiting R11.2 Hypophosphatemia E83.39 Hyperglycemia R73.9 Colitis K52.9 Adrenal insufficiency E27.40 On total parenteral nutrition (TPN) Z78.[address] Z93.1 Severe protein-calorie malnutrition E43 Candidiasis of mouth and esophagus B37.81; B37.0 Ileostomy status Z93.2
[2021-11-12] MEDS: ACETAMINOPHEN/HYDROcodone ELIX 15 ML/CUP GT PRN ×2 (04:19→11:23)
[2021-11-12] MEDS: LORazepam 1 MG in SYRINGE 0.5 ML IV PRN (05:45)
[2021-11-12] MEDS: HYDROmorphone INJ 1 MG/ML SYRINGE IV PRN ×2 (05:47→13:09)
--- NOTE | 2021-11-12 08:50 | Gastroenterology Progress Note ---
Date of Service November 12, 2021 Assessment & Plan (1) Intestinal motility disorder: Plan: Clinically patient seems to be improving. Her labs are pending so far this morning. She states she is feeling somewhat better. She states that she is really hopeful that she feels well enough to be able to be discharged soon. Agree with supportive care measures in place by hospitalist team. Advance TPN and activity, reduce reliance on parenteral pain medication, change G tube to gravity drainage in preparation for discharge and outpatient management Case reviewed with Dr. Queen. Please refer to supervising physician addendum for further recommendations. I have spent 20 minutes of discrete time performing the activities of this visit which include but are not limited to review of the medical record, obtaining a history, physical exam, and entering information in the electronic record. (2) Ileostomy status: (3) Severe protein-calorie malnutrition: (4) Abdominal pain, chronic, generalized: (5) Gastrostomy tube in place: Admission and Anticipated Discharge Date Admission Date: October 30, 2021 Supervising Physician Co-Signing Physician Notes Interview and examination not performed, patient was discharged prior to my afternoon rounds. Chart Review: ALT and lipase continue to decline, symptoms continue to gradually improve I agree with the assessment as outlined in this consultation, with the following observations: No new observations I agree with the plan of care as outlined in this consultation, with the following changes and/or additions: No changes recommended As the supervising physician, I have spent 10 minutes of discrete time performing the activities of this consultation which include, but are not limited to, review of the medical record, obtaining a history, physical examination, and entering information into the electronic record. YULISSA Lee, has reported spending 20 minutes of discrete time with the activities of the consultation. Subjective Patient with no new events overnight. She has had G-tube attached to Weber gravity bag overnight. She states it was Yesterday. So far is tolerating but does continue to have upper abdominal pain. Pain medication regimen was changed yesterday and patient has so far tolerated well. Continues to have nausea. Denies any vomiting of fluids or foods. She is taking minimal p.o. intake. Reports some increase in ostomy output. She reports she is tired but hopeful for discharge if continuing to feel better. Review of Systems Gastrointestinal: + abdominal pain and + nausea Physical Exam Gastrointestinal (Abdomen): Inspection/Auscultation: + hypoactive bowel sounds Percussion/Palpation: abdomen soft; abdomen nontender and no guarding Results & Data ([facility]) Vital Signs (Past 12 Hours) Vital Signs Temp Pulse Resp BP Pulse Ox 11/12/21 07:24 36.8 C 63 16 93/60 L 97 Laboratory Results Laboratory Results - last 24 hr 11/11/21 11/11/21 11/11/21 09:38 09:38 10:28 Sodium 140 Potassium 4.1 Chloride 106 Carbon Dioxide 29 Anion Gap 5 BUN 22 Creatinine 0.69 Est Cr Clr Drug Dosing 88.5 Est GFR ( Amer) 136.3 Est GFR (Non-Af Amer) 117.6 BUN/Creatinine Ratio 31.9 H Glucose 101 H Calcium 8.7 Ionized Calcium Cancelled 1.14 Phosphorus 4.1 Magnesium 2.1 Total Bilirubin Direct Bilirubin AST ALT Alkaline Phosphatase Total Protein Albumin Lipase 146 H 11/12/21 08:19 Sodium Pending Potassium Pending Chloride Pending Carbon Dioxide Pending Anion Gap Pending BUN Pending Creatinine Pending Est Cr Clr Drug Dosing Pending Est GFR ( Amer) Pending Est GFR (Non-Af Amer) Pending BUN/Creatinine Ratio Pending Glucose Pending Calcium Pending Ionized Calcium Phosphorus Pending Magnesium Pending Total Bilirubin Pending Direct Bilirubin Pending AST Pending ALT Pending Alkaline Phosphatase Pending Total Protein Pending Albumin Pending Lipase Pending
[2021-11-12] MEDS: NYSTATIN SUSP 500,000 U/5 ML UDC PO SCH ×2 (09:02→13:09)
[2021-11-12] MEDS: GABAPENTIN 250 MG/5 ML 470 ML BTL GT SCH ×2 (09:02→13:09)
[2021-11-12] MEDS: HYDROCORTISONE 10 MG TAB PO SCH (09:02)
[2021-11-12] MEDS: FLUDROCORTISONE ACETATE 0.1 MG TAB PO SCH (09:02)
[2021-11-12] MEDS: PANTOprazole 40 MG TAB PO SCH (09:03)
[2021-11-12] MEDS: FAMOTIDINE 20 MG TAB PO SCH (09:03)
[2021-11-12 09:06] LABS: Albumin Level 3.6 gm/dl (3.4-5.0); BUN Creatinine Ratio 30.6 (10-20); Bilirubin Direct 0.1 mg/dl (0-0.2); Bilirubin,Total 0.4 mg/dl (0.2-1.0); Calcium 8.6 mg/dl (8.5-10.1); Creatinine Clr Calc Pharmacy 85.2 ml/min; Est GFR (African American) 131.2 ml/min; Est GFR (Non-African American) 113.2 ml/min; Magnesium 2.1 mg/dl (1.7-2.4); Total Protein 5.6 gm/dl (6.0-8.3)
[2021-11-12] MEDS: DICYCLOMINE HCL 10 MG CAP PO PRN (11:23)
[2021-11-12] MEDS: ONDANSETRON INJ 2 MG/ML 2 ML VIAL IV PRN (13:09)
--- NOTE | 2021-11-12 14:01 | Discharge Summary ---
Date of Service November 12, 2021 Admission HPI Per Admitting Provider Pilar Garcia is a 31yo female with complicated past medical history consisting of SMA syndrome s/p surgery, chronic GI dysmotility, presence of ileostomy and G-tube as well as port for TPN administration and adrenal insufficiency. She presents today with abdominal pain. Patient has been in her usual state of health. She visited her brother in [place] this weekend and has been doing well. This afternoon around 13:00 she developed acute onset of severe abdominal pain located in the mid-lower abdomen. She reports the pain was sever, 10/10, felt tearing and twisting in nature. Constant with associated nausea. Patient reports that her discomfort feels like prior episodes of intussusception. She has had some increase in liquid output from her ileostomy as well as passage of bloody mucus from her rectum which is atypical. Otherwise she denies fever, chills, rigors, chest pain, cough, SOB, dysuria. Patient in significant discomfort upon arrival to the ER. She was administered several doses of IV Dilaudid as well as IV Zofran with overall improvement in pain. Patient has had revision of her tube. Was previously a G-J tube but has been recently been revised to only a G-tube with hopes that this would help decrease episodes of intussusception. She uses her G tube predominantly to vent and drain. She does take her Gabapentin liquid via G-tube. Patient has a port present and receives TPN. She reports her port has been functioning properly with no pain, redness. [place] [facility] [place] She typically receives TPN infusion for 18 hours then receives her lipids separately. Patient's mother has TPN at home and is planning on bringing it in tomorrow. Patient is moving forward with plans for an intestinal transplant to be done at [facility]. She was recently discovered to have low bone density and is to be started on an infusion for this (uncertain of medication) ER Course: Dilaudid 1mg IV x 7 doses Zofran 4mg IV x 3 doses NSS x 1L Principal Diagnosis Acute on chronic abdominal pain and nausea, colitis Discharge Exam Constitutional + thin and + underweight Eyes + anicteric sclerae Neck trachea midline, no thyromegaly Respiratory normal respiratory effort, lungs clear to auscultation Cardiovascular RRR, no murmur, no edema Chest (Breasts) Chest: normal inspection of chest Gastrointestinal (Abdomen) Inspection/Auscultation: normal bowel sounds; + abdomen abnormal to inspection (G tube and ileostomy bag in place with liquid) and abdomen not distended Percussion/Palpation: + abdomen tender (lower abd without guarding or rebound) and abdomen soft Musculoskeletal Extremities: extremities normal to inspection; no cyanosis and no clubbing Skin no rashes, warm and dry Neurologic moves all extremities and awake; no focal motor deficits Psychiatric A+Ox3, euthymic affect Lymphatic no lymphedema Discharge Data Allergies Allergy/AdvReac Type Severity Reaction Status Date / Time amoxicillin Allergy Intermediate RASH Verified 10/30/21 18:14 cefazolin Allergy Intermediate rash Verified 10/30/21 18:14 Cephalosporins Allergy Intermediate HIVES Verified 10/30/21 18:14 clavulanic acid Allergy Intermediate HIVES Verified 10/30/21 18:14 iron [From Venofer] Allergy Intermediate Muscle Pain Verified 10/30/21 18:14 Penicillins Allergy Intermediate HIVES Verified 11/12/21 13:28 prochlorperazine Allergy Intermediate HIVES Verified 10/30/21 18:14 promethazine Allergy Intermediate hives, Verified 10/30/21 18:14 throat swelling sulfamethoxazole Allergy Intermediate RASH Verified 10/30/21 18:14 sumatriptan Allergy Intermediate RASH Verified 10/30/21 18:14 trimethoprim Allergy Intermediate RASH Verified 10/30/21 18:14 metoclopramide AdvReac Severe anxiety/ Verified 10/30/21 18:14 jittery diphenhydramine AdvReac Intermediate Tachycardia, Verified 10/30/21 18:14 Severe Anxiety WITH IV ONLY erythromycin base AdvReac Intermediate GI SYMPTOMS Verified 10/30/21 18:14 citalopram [From Celexa] AdvReac Unknown CAN'T Verified 10/30/21 18:14 REMEMBER MULTIVITAMIN Allergy Intermediate SEE COMMENT Uncoded 10/30/21 18:14 Consultations 10/30/21 20:48 ED Decision to Admit Stat 11/01/21 11:15 Consult Gastroenterology Routine Ordered Studies 10/30/21 18:32 CT abd pelvis IV con only Stat 11/02/21 12:38 US renal/blad retro comp Routine Hospital Course (1) Abdominal pain, chronic, generalized: h/o SMA syndrome s/p surgical repair, GI dysmotility, prior jejunal intussusception. Patient with ileostomy, G-tube in place with latter in place for venting purposes. She is on chronic TPN for severe protein calorie malnutrition. She has chronic abd pain. Presented on 10/30/21 with acute worsening - etiology initially felt to be the "colitis" seen on CT but etiology of such was not certain. Everything improved, then acute worsening earlier this week. acute pancreatitis? pain improving. lipase improving. overall she is improving. Still taking IV dilaudid up through the time of discharge as well as liquid hydrocodone-APAP This is functional abdominal pain at this point. Encouraged spare use of liquid hydrocodone after discharge-gave enough for a 3 day supply (2) Elevated lipase: lipase has peaked and is trending down slowly. lipase was normal on admission and then mildly elevated in setting of acute abdominal pain a few days prior to discharge unclear if truly has acute pancreatitis but certainly possible given acute/chronic pain several days ago. recent triglycerides wnl. cause of elevated lipase.... viral? lipids in TPN? sphincter of Oddi dysfunction regardless of cause she is biochemically & clinically improving. improved with holding lipids in TPN, can now restart lipids on discharge (3) Transaminitis: 2nd to recent zosyn use? viral process? other? IMPROVING/resolving AST has normalized. ALT continues to fall - nearly normal. ok to restart lipids zosyn is off (4) Nausea and vomiting: acute part resolved. Has daily chronic nausea from gut dysmotility 2nd to chronic GI motility issues, adrenal insufficiency, ?mild acute panc reatitis?, other factors. now g-tube is capped but had been to [facility] at one point during her stay (5) Hypophosphatemia: Replaced and resolved (6) Hyperglycemia: A1c is 5.3% only. only had hyperglycemia while on stress dose steroids treated with insulin (7) Colitis: Clinically resolved seen on admission CT etiology uncertain. s/p 5 day course of Zosyn -- now off antibiotics (8) Adrenal insufficiency: finished stress dose steroids cont hydrocortisone 15mg po qAM and 10mg po q afternoon continue Florinef 0.2mg po qAM and 0.1mg po qpm (9) On total parenteral nutrition (TPN): continue home TPN on discharge f/u with Nutritional specialist after discharge (10) Gastrostomy tube in place: exchanged last year from G-J to just G tube as thought was that her J tube was causing intussusception (11) Severe protein-calorie malnutrition: Severe protein-calorie malnutrition Continue TPN TPN managed via [facility] receives her TPN via [employer] awaiting small bowel transplant at [facility] (12) Candidiasis of mouth and esophagus: nystatin 5cc qid x 2 week course swish/spit improved/resolved (13) Ileostomy status: functioning well Dispo-stable for dc to home Total Time Total Time Spent Total Time Spent (In Minutes): 40 min Discharge Plan Discharge Items Patient Disposition: Home - Home Health Services Reason For Visit: SEVERE ABDOMINAL PAIN Discharge Diagnosis: Colitis, acute on chronic abdominal pain and nausea Condition on Discharge: Fair Activity: Resume your previous activity Non-emergency contact: Primary Care Provider Call non-emergency contact if: you have any medication questions and your symptoms worsen Follow-up/Referrals: Mariah Addison DO [Primary Care Provider] - (Follow up within 1-2 weeks) Diet: Regular Diet Comment: as tolerated Addtl Attending Provider Instructions: Please follow up with your PCP within 1-2 weeks and with your GI specialist at [facility] as planned in December. You can take hydrocodone for the short term as needed for pain, but should try to use it sparingly. Restart your home TPN. Pending Studies at Discharge: No Stand-Alone Forms: My [facility] Medications and DC Order Prescriptions: New nystatin 100,000 unit/mL Suspension 5 ml PO QID 7 Days Qty: 140 RF: 0 hydrocodone-acetaminophen 7.5-325 mg/15 mL solution 10 ml PO Q6H PRN (Reason: moderate-severe pain) Qty: 120 RF: 0 Continued famotidine 40 mg tablet 20 mg PO BID RF: 0 ondansetron 4 mg tablet,disintegrating 4 mg translingual Q6H PRN (Reason: Nausea) RF: 0 hydrocortisone 10 mg tablet 10 - 15 mg PO BID RF: 0 trimethobenzamide 300 mg Capsule 300 mg PO Q6H PRN (Reason: Nausea And Vomiting) RF: 0 hyoscyamine sulfate [Levsin/SL] 0.125 mg Tablet, Sublingual 0.125 mg SUBLINGUAL Q4H PRN (Reason: Abdominal Cramping) RF: 0 dicyclomine 10 mg Capsule 10 - 20 mg PO Q6H PRN (Reason: Abdominal Pain) RF: 0 pantoprazole [Protonix] 40 mg tablet,delayed release (DR/EC) 40 mg PO QAM RF: 0 lorazepam [Ativan] 2 mg/mL Solution 0.5 mg buccal QID PRN (Reason: Nausea) RF: 0 gabapentin 250 mg/5 mL solution 300 mg PO TID RF: 0 fexofenadine 180 mg Tablet 180 mg PO PM RF: 0 fludrocortisone 0.1 mg tablet 0.1 - 0.2 mg PO UD RF: 0 tramadol 50 mg tablet 50 mg PO Q12 PRN (Reason: Pain) RF: 0 acetaminophen [Tylenol Extra Strength] 500 mg Tablet 1,000 mg PO Q6H PRN (Reason: Pain) RF: 0 ascorbic acid (vitamin C) [Vitamin C] 500 mg Tablet,Chewable 0 mg PO PM RF: 0 vitamin B complex Tablet 1 tab PO PM RF: 0 coenzyme Q10 [CoQ-10] 100 mg Capsule 0 mg PO PM RF: 0 Multivitamin Gummies 200 mcg Tablet,Chewable 2 tab PO PM RF: 0 turmeric 400 mg Capsule 0 mg PO PM RF: 0 Discharge Orders: Discharge Order (Routine); Ordered 11/12/21 Ordered By: Vicky Drew Admission Data Admit Date/Time: 10/30/21 21:08 Attending Provider: Vicky Drew Admit Provider: Viridiana Sharma Primary Care Provider: Mariah Addison Other Providers: Viridiana Sharma ; Candido Fernández ; [facility] Coding Level of Care Code D/C DAY MANAGEMENT >30 MINS Diagnoses Elevated lipase R74.8 Transaminitis R74.01 Abdominal pain, chronic, generalized R10.84; G89.29 Nausea and vomiting R11.2 Hypophosphatemia E83.39 Hyperglycemia R73.9 Colitis K52.9 Adrenal insufficiency E27.40 On total parenteral nutrition (TPN) Z78.[address] Z93.1 Severe protein-calorie malnutrition E43 Candidiasis of mouth and esophagus B37.81; B37.0 Ileostomy status Z93.2
[2021-11-12] MEDS: TPN RATE CHANGE SCH (14:10)
== END 2021-11-12 15:36 | disposition home health service (06) | DRG 391 ==
LOC: ED 13:47 → 3W 21:08 → SUATTDRO 21:08 → 3W 10-31 03:59

== ENCOUNTER 2021-11-19 13:29 | Inpatient (IN) ==
[2021-11-19] MEDS ORDERED: HYDROmorphone INJ 2 MG/ML SYR/VIAL ONE (13:54)
[2021-11-19] MEDS ORDERED: SODIUM CHLORIDE 0.9% 1000ML 1,000 ML IV STA (14:28)
[2021-11-19] MEDS ORDERED: ONDANSETRON INJ 2 MG/ML 2 ML VIAL IV STA (14:28)
--- NOTE | 2021-11-19 14:51 | Emergency Department Note ---
History of Present Illness General Chief complaint: Abdominal Pain Stated complaint: ABDOMINAL PAIN Time Seen by Provider: 11/19/21 14:27 History of Present Illness Maximum Pain Intensity: 9 31-year-old female presents to the ED with a chief complaint of abdominal pain. The patient states that she came [facility] to get her [facility] accessed and have some lab work drawn. While she was there she started having an increase in her abdominal pain and was sent to the ER. The patient states that her pain actually started last night. She was discharged from the hospital last week for similar symptoms. The patient states that she was in the hospital for ischemic colitis, intussusception and pancreatitis. She states that ultimately they just controlled her symptoms and then sent her home after her symptoms were under control. She did not have any specific intervention. She states that she is awaiting an intestinal transplant. She has some associated nausea. The abdominal pain is diffuse and crampy. No other complaints this time. She has a G-tube for which she only uses to relieve gas. The patient otherwise receives TPN for her typical nutrition. She does have an ileostomy as well. Normal output from the ileostomy. She does not get any feedings through her G-tube, a s she states she is unable to tolerate it. Home Medications Medication Instructions Recorded Confirmed Type dicyclomine 10 mg capsule 10 - 20 mg PO Q6H PRN 03/07/18 11/19/21 History hyoscyamine sulfate 0.125 mg 0.125 mg SUBLINGUAL Q4H PRN 03/07/18 11/19/21 History sublingual tablet (Levsin/SL) pantoprazole 40 mg tablet,delayed 40 mg PO QAM 09/08/19 11/19/21 History release (Protonix) famotidine 40 mg tablet 20 mg PO BID 11/28/19 11/19/21 History lorazepam 2 mg/mL injection 0.5 mg BUCCAL QID PRN 12/05/19 11/19/21 History solution (Ativan) hydrocortisone 10 mg tablet 10 - 15 mg PO BID 02/07/20 11/19/21 History ondansetron 4 mg disintegrating 4 mg TRANSLINGUAL Q6H PRN 02/07/20 11/19/21 History tablet trimethobenzamide 300 mg capsule 300 mg PO Q6H PRN 02/07/20 11/19/21 History fexofenadine 180 mg tablet 180 mg PO PM 10/09/20 11/19/21 History gabapentin 250 mg/5 mL oral 300 mg PO TID 10/09/20 11/19/21 History solution fludrocortisone 0.1 mg tablet 0.1 - 0.2 mg PO UD 12/12/20 11/19/21 History acetaminophen 500 mg tablet 1,000 mg PO Q6H PRN 06/13/21 11/19/21 History (Tylenol Extra Strength) ascorbic acid (vitamin C) 500 mg 0 mg PO PM 06/13/21 11/19/21 History chewable tablet (Vitamin C) coenzyme Q10 100 mg capsule 0 mg PO PM 06/13/21 11/19/21 History (CoQ-10) multivitamin with minerals-folic 2 tab PO PM 06/13/21 11/19/21 History acid 200 mcg chewable tablet (Multivitamin Gummies) turmeric 400 mg capsule 0 mg PO PM 06/13/21 11/19/21 History vitamin B complex 1 tab PO PM 06/13/21 11/19/21 History hydrocodone 7.5 mg-acetaminophen 10 ml PO Q6H PRN #120 ml 11/12/21 11/19/21 Rx 325 mg/15 mL oral solution hydrocodone 7.5 mg-acetaminophen 10 ml FEEDING TUBE Q6H PRN 11/13/21 11/19/21 History 500 mg/15 mL oral solution Allergies Allergy/AdvReac Type Severity Reaction Status Date / Time amoxicillin Allergy Intermediate RASH Verified 11/19/21 17:31 cefazolin Allergy Intermediate rash Verified 11/19/21 17:31 Cephalosporins Allergy Intermediate HIVES Verified 11/19/21 17:31 clavulanic acid Allergy Intermediate HIVES Verified 11/19/21 17:31 iron [From Venofer] Allergy Intermediate Muscle Pain Verified 11/19/21 17:31 Penicillins Allergy Intermediate HIVES Verified 11/19/21 17:31 prochlorperazine Allergy Intermediate HIVES Verified 11/19/21 17:31 promethazine Allergy Intermediate hives, Verified 11/19/21 17:31 throat swelling sulfamethoxazole Allergy Intermediate RASH Verified 11/19/21 17:31 sumatriptan Allergy Intermediate RASH Verified 11/19/21 17:31 trimethoprim Allergy Intermediate RASH Verified 11/19/21 17:31 metoclopramide AdvReac Severe anxiety/ Verified 11/19/21 17:31 jittery diphenhydramine AdvReac Intermediate Tachycardia, Verified 11/19/21 17:31 Severe Anxiety WITH IV ONLY erythromycin base AdvReac Intermediate GI SYMPTOMS Verified 11/19/21 17:31 citalopram [From Celexa] AdvReac Unknown CAN'T Verified 11/19/21 17:31 REMEMBER MULTIVITAMIN Allergy Intermediate SEE COMMENT Uncoded 11/19/21 17:31 Past Med/Surg History Medical History Asthma Chronic migraine Endometriosis has had 3 surgeries for this. Last surgery [address] Hemorrhagic cystitis Hypotension Intussusception PICC (peripherally inserted central catheter) in place TPN SMAS (superior mesenteric artery syndrome) History of SMAS Sphincter of Oddi dysfunction DECREASED GI MOTILITY Uses feeding tube gastroparesis and decreased GI motility can not tolerate feeding and uses TPN UTI (urinary tract infection) Surgical History H/O adenoidectomy H/O laparoscopy H/O lumpectomy right breast 2011 History of appendectomy History of bowel resection Part of duodenum removed due to necrosis; done at [facility] 2019 History of hysterectomy 09/27/19 History of removal of Port-a-Cath 10/13/[address] Geiger, [facility], due to bacteremia/sepsis. History of vascular access device 2017 Hx of colonoscopy during procedure perforated small bowel 10/27/[address] [facility], subsequent repair of duodenal area. Hx of ileostomy Hx of tonsillectomy S/P cholecystectomy 2015 S/P wrist surgery right Family History Father Hyperlipidemia Other No significant family history Social History Smoking Status: Never smoker Second Hand Exposure: No; Hx Alcohol Use: No Hx Substance Use: No Preferred Language: Spanish Communication Ability: Effective Visual Impairment: No Limitations Hearing Ability: Normal Quill Worker Required: No Beliefs That Will Affect Care: None marital status: Single Current Living Situation: Family Current Living Situation Comment: Lives with family. current occupational status: unemployed Feels Safe at Home: Yes Assistive Devices: Wheelchair Review of Systems A total of 10 systems reviewed and were otherwise negative Physical Exam Vital Signs Vital Signs - 24 hr 11/19/21 14:16 11/19/21 14:20 11/19/21 14:23 Temperature 36.9 C Temperature Source Oral Pulse Rate 78 74 70 Pulse Rate [Right Finger] Pulse Rate from SpO2 Sensor 74 71 Pulse Rhythm Regular Pulse Rhythm [Right Finger] Pulse Strength Normal Pulse Strength [Right Finger] Respiratory Rate 18 Respiratory Effort / Characteristics Non-Labored Spontaneous Respiratory Depth Normal Blood Pressure 81/59 L Blood Pressure [Left Arm] Blood Pressure Mean 66 Blood Pressure Mean [Left Arm] Blood Pressure Position Right Lateral Blood Pressure Position [Left Arm] Pulse Oximetry 100 100 98 Oxygen Delivery Method Room Air Sepsis Recent Fever Within 48 Hours No Sepsis New/Unexplained Change in Mental Status No Sepsis Action Taken by Nursing No Action Required 11/19/21 14:29 11/19/21 14:30 11/19/21 14:45 Temperature Temperature Source Pulse Rate 73 68 77 Pulse Rate [Right Finger] Pulse Rate from SpO2 Sensor 74 70 74 Pulse Rhythm Pulse Rhythm [Right Finger] Pulse Strength Pulse Strength [Right Finger] Respiratory Rate Respiratory Effort / Characteristics Respiratory Depth Blood Pressure 85/52 L Blood Pressure [Left Arm] 78/54 L Blood Pressure Mean 63 Blood Pressure Mean [Left Arm] 62 Blood Pressure Position Blood Pressure Position [Left Arm] Right Lateral Pulse Oximetry 99 100 95 Oxygen Delivery Method Room Air Sepsis Recent Fever Within 48 Hours Sepsis New/Unexplained Change in Mental Status Sepsis Action Taken by Nursing 11/19/21 15:55 11/19/21 16:13 Temperature Temperature Source Pulse Rate Pulse Rate [Right Finger] 103 H Pulse Rate from SpO2 Sensor Pulse Rhythm Pulse Rhythm [Right Finger] Regular Pulse Strength Pulse Strength [Right Finger] Normal Respiratory Rate 25 H Respiratory Effort / Characteristics Non-Labored Respiratory Depth Normal Blood Pressure Blood Pressure [Left Arm] 99/57 L Blood Pressure Mean Blood Pressure Mean [Left Arm] 71 Blood Pressure Position Blood Pressure Position [Left Arm] Pulse Oximetry 99 99 Oxygen Delivery Method Room Air Room Air Sepsis Recent Fever Within 48 Hours Sepsis New/Unexplained Change in Mental Status Sepsis Action Taken by Nursing CONSTITUTIONAL/VITAL SIGNS: Reviewed / noted above. GENERAL: Non-toxic in appearance. INTEGUMENTARY: Warm, dry, and [place]. HEAD: Normocephalic. EYES: without scleral icterus or trauma. ENT/OROPHARYNX: clear and moist. LYMPHADENOPATHY/NECK: Is supple without lymphadenopathy or meningismus. RESPIRATORY: Clear to auscultation bilaterally. No increased work of breathing. CARDIOVASCULAR: Regular rate and rhythm. GI/ABDOMEN: Soft and mildly tender diffusely. G-tube in place. Ileostomy in place. No organomegaly or pulsatile mass. EXTREMITIES: Warm and well perfused. BACK: No CVA tenderness. NEUROLOGICAL: Intact without focal deficits. PSYCHIATRIC: normal affect. MUSCULOSKELETAL: Normally developed with good muscle tone. TRIAGE NURSING DOCUMENTATION REVIEWED. Course Administered Medications Discontinued Medications Hydromorphone HCl (Hydromorphone Inj 2 Mg/Ml Syr/Vial) Confirm Administered Dose 2 mg .ROUTE .[employer]-MED ONE Stop: 11/19/21 13:55 Last Admin: 11/19/21 15:53 Dose: Not Given Documented by: [id number] Hydromorphone HCl (Hydromorphone Inj 0.5 Mg/0.5 Ml Syr) 0.5 mg IV NOW STA Stop: 11/19/21 15:34 Last Admin: 11/19/21 15:52 Dose: 0.5 mg Documented by: [id number] Sodium Chloride (Nss 1000ml) 1,000 mls @ 999 mls/hr IV .Q1H1M STA Stop: 11/19/21 15:28 Last Infusion: 11/19/21 15:50 Dose: 0 mls/hr Documented by: [id number] Admin: 11/19/21 14:48 Dose: 999 mls/hr Documented by: [id number] Ioversol (Optiray 320 100ml) 88 ml IV ONCE ONE Stop: 11/19/21 16:08 Last Admin: 11/19/21 16:07 Dose: 88 ml Documented by: [id number] Ondansetron HCl (Ondansetron Inj 2 Mg/Ml 2 Ml Vial) 4 mg IV NOW STA Stop: 11/19/21 14:29 Last Admin: 11/19/21 14:48 Dose: 4 mg Documented by: [id number] Medical Decision Making Differential Diagnosis Differential considered: pancreatitis, hepatitis, acute cholecystitis, AAA, UTI, pyelonephritis, kidney stones, appendicitis, diverticulitis, shingles, bowel obstruction, mesenteric ischemia, intussusception,hernia, ovarian torsion, ruptured ovarian cyst,ectopic , . Medical Records Attestation: I reviewed the patient's medical records. Home Medications Current Medication List: was personally reviewed by me Laboratory Data Attestation: I reviewed the patient's lab results. Result diagrams: 11/19/21 14:28 11/19/21 14:28 Lab Results 11/19/21 11/19/21 11/19/21 Range/Units 14:28 14:28 15:32 WBC 5.84 (4.8-10.8) K/uL RBC 3.69 L (4.2-5.4) M/uL Hgb 11.9 L (12.0-16.0) g/dL Hct 35.0 L (37-47) % MCV 94.9 (80-100) fL MCH 32.2 (25-34) pg MCHC 34.0 (32-36) g/dL RDW Std Deviation 39.9 (36.4-46.3) fL RDW Coeff of Tim 11.7 (11.5-14.5) % Plt Count 257 (130-400) K/uL MPV 10.8 H (7.4-10.4) fL Immature Gran % (Auto) 0.0 % Neut % (Auto) 62.5 % Lymph % (Auto) 25.9 % [place] % (Auto) 10.1 % Eos % (Auto) 1.0 % Baso % (Auto) 0.5 % Neut # (Auto) 3.65 (1.4-6.5) K/uL Lymph # (Auto) 1.51 (1.2-3.4) K/uL [place] # (Auto) 0.59 (0.11-0.59) K/uL Eos # (Auto) 0.06 (0-0.5) K/uL Baso # (Auto) 0.03 (0-0.2) K/uL Immature Gran # (Auto) 0.00 (0.00-0.02) K/uL Sodium 140 (136-145) mmol/L Potassium 3.6 (3.5-5.1) mmol/L Chloride 107 (98-107) mmol/L Carbon Dioxide 27 (21-32) mmol/L Anion Gap 6 (3-11) BUN 10 (6-23) mg/dl Creatinine 0.86 (0.6-1.2) mg/dl Est Cr Clr Drug Dosing 69.9 ml/min Est GFR ( Amer) 105.8 ml/min Est GFR (Non-Af Amer) 91.3 ml/min BUN/Creatinine Ratio 11.6 (10-20) Glucose 95 (70-99(Fasting)) mg/dl Calcium 8.7 (8.5-10.1) mg/dl Total Bilirubin 0.6 (0.2-1.0) mg/dl AST 14 (13-39) U/L ALT 18 (7-52) U/L Alkaline Phosphatase 50 (34-104) U/L Total Protein 6.3 (6.0-8.3) gm/dl Albumin 4.1 (3.4-5.0) gm/dl Globulin 2.2 L (2.5-4.0) gm/dl Albumin/Globulin Ratio 1.9 (0.9-2) Lipase 144 H (11-82) U/L SARS-CoV-2, RNA, NAAT NEGATIVE (NEGATIVE) Imaging Data Radiologist's Impression: Abdomen/Pelvis CT 11/19/21 14:[address] WITH IV CONTRAST CT DOSE: 249.20 mGy.cm HISTORY: Acute generalized abdominal pain in a patient with prior cholecystectomy, gastrostomy with right lower quadrant ileostomy. abd pain TECHNIQUE: Multiaxial CT images of the abdomen and pelvis were performed fo llowing the IV administration of 88 cc of Optiray, A dose lowering technique was utilized adhering to the principles of ALARA. COMPARISON STUDY: CT abdomen and pelvis 10/30/2021 FINDINGS: Trace left pleural effusion. Clear lung bases. There is no pneumatosis or pneumoperitoneum. The spleen, pancreas and adrenal glands are unremarkable. Cholecystectomy. Unremarkable liver. There is patency of the hepatic and portal veins. Unremarkable kidneys. The urinary bladder is unremarkable. Follicular changes of the ovaries. Aorta and IVC are unremarkable. There is no lymphadenopathy identified. The gastrostomy tube appears to be in satisfactory positioning. The appendix is not diagnostically visualized. Mild wall thickening of the mid and distal stomach is unchanged. Diminished aorta mesenteric angle without significant u pstream duodenal distention. There is no bowel obstruction or bowel wall thickening. The large bowel is decompressed. Right lower quadrant ileostomy. No ascites or mesenteric inflammation. Unremarkable soft tissues. There is no acute fracture. Mild dextroscoliosis of the thoracolumbar junction. IMPRESSION: 1. No acute intra-abdominal or intrapelvic abnormality. 2. No bowel obstruction or bowel wall thickening. 3. Right lower quadrant ileostomy. 4. Satisfactory positioning of the gastrostomy tube. ACT 112: Negative or not required by law. The above report was generated using voice recognition software. It may contain grammatical, syntax or spelling errors. Electronically signed by: Derrek Sow M.D. 11/19/2021 4:37 PM ECG Data Attestation: I personally reviewed and interpreted this ECG as follows: Additional Comments: Twelve-lead EKG: Per my interpretation shows a sinus rhythm at a rate of 63. No ST elevation. No PVCs. Normal QTC. MDM Narrative 31-year-old female presents with abdominal pain. This sounds similar to what she was recently admitted for. She states that it is a similar presentation to her previous admission. Diffuse abdominal pain started last night. Some nausea but no vomiting. Initial vital signs reveal a blood pressure 81/59. The patient states that her blood pressure normally runs about 90/60. She has some mild diffuse abdominal tenderness on my exam. She did receive some Dilaudid prior to presentation. She received that through the [facility]. The patient's CBC was normal. EKG showed normal sinus rhythm. Complete metabolic panel was unremarkable. Lipase was 144. COVID test was negative and a CT scan of the abdomen pelvis did not show acute process. The patient was treated here with IV Dilaudid. She was also given some IV fluids and IV Zofran. On reassessment, the patient states that she is still having significant mount of pain. She was told the results. She states that she is not taking anything for pain at home. She did not want to go home with pain medication. She feels that she needs to stay in the hospital as her symptoms are similar to her previous presentation where she was admitted to the hospital and improved during her stay. I did speak with the hospitalist about the patient. The patient does have an mildly elevated lipase of 144. Given the patient's CT scan findings as well as nonfocal abdominal exam, I do not feel this represents acute pancreatitis, although an early pancreatitis is a possibility. Impression & Plan Abdominal pain, diffuse Discharge Plan Visit Data Chief Complaint: Abdominal Pain Stated Complaint: ABDOMINAL PAIN ED Provider: Charan Weller Discharge Problem: Abdominal pain, diffuse Patient Disposition: Being Evaluated by Hospitalist Forms Stand Alone Forms: [facility] Prescriptions Prescriptions: No Action famotidine 40 mg tablet 20 mg PO BID RF: 0 ondansetron 4 mg tablet,disintegrating 4 mg translingual Q6H PRN (Reason: Nausea) RF: 0 hydrocortisone 10 mg tablet 10 - 15 mg PO BID RF: 0 trimethobenzamide 300 mg Capsule 300 mg PO Q6H PRN (Reason: Nausea And Vomiting) RF: 0 hyoscyamine sulfate [Levsin/SL] 0.125 mg Tablet, Sublingual 0.125 mg SUBLINGUAL Q4H PRN (Reason: Abdominal Cramping) RF: 0 dicyclomine 10 mg Capsule 10 - 20 mg PO Q6H PRN (Reason: Abdominal Pain) RF: 0 pantoprazole [Protonix] 40 mg tablet,delayed release (DR/EC) 40 mg PO QAM RF: 0 lorazepam [Ativan] 2 mg/mL Solution 0.5 mg buccal QID PRN (Reason: Nausea) RF: 0 gabapentin 250 mg/5 mL solution 300 mg PO TID RF: 0 fexofenadine 180 mg Tablet 180 mg PO PM RF: 0 hydrocodone-acetaminophen 7.5-325 mg/15 mL solution 10 ml PO Q6H PRN (Reason: moderate-severe pain) Qty: 120 RF: 0 fludrocortisone 0.1 mg tablet 0.1 - 0.2 mg PO UD RF: 0 acetaminophen [Tylenol Extra Strength] 500 mg Tablet 1,000 mg PO Q6H PRN (Reason: Pain) RF: 0 ascorbic acid (vitamin C) [Vitamin C] 500 mg Tablet,Chewable 0 mg PO PM RF: 0 vitamin B complex Tablet 1 tab PO PM RF: 0 coenzyme Q10 [CoQ-10] 100 mg Capsule 0 mg PO PM RF: 0 Multivitamin Gummies 200 mcg Tablet,Chewable 2 tab PO PM RF: 0 turmeric 400 mg Capsule 0 mg PO PM RF: 0 Lortab Elixir 7.5-500 mg/15 mL Solution 10 ml feeding tube Q6H PRN (Reason: Pain) RF: 0 Referrals Referrals: Mariah Addison DO [Primary Care Provider] -
[2021-11-19 15:09] LABS: Basophils # (auto) 0.03 K/uL (0-0.2); Basophils % (auto) 0.5 %; Eosinophils # (auto) 0.06 K/uL (0-0.5); Hemoglobin 11.9 g/dL (12.0-16.0); Lymphocytes # (auto) 1.51 K/uL (1.2-3.4); Lymphocytes % (auto) 25.9 %; Mean Corpuscular Hemoglobin 32.2 pg (25-34); Mean Corpuscular Volume 94.9 fL (80-100); Mean Platelet Volume 10.8 fL (7.4-10.4); Monocytes # (auto) 0.59 K/uL (0.11-0.59); Monocytes % (auto) 10.1 %; Neutrophils # (auto) 3.65 K/uL (1.4-6.5); Neutrophils % (auto) 62.5 %; Platelet Count 257 K/uL (130-400); RDW Coefficient of Variation 11.7 % (11.5-14.5); RDW Standard Deviation 39.9 fL (36.4-46.3); Red Blood Count 3.69 M/uL (4.2-5.4); White Blood Count 5.84 K/uL (4.8-10.8)
[2021-11-19] MEDS ORDERED: HYDROmorphone INJ 0.5 MG/0.5 ML SYR IV STA ×2 (15:33→17:50)
[2021-11-19 15:35] LABS: Albumin Globulin Ratio 1.9 (0.9-2); Albumin Level 4.1 gm/dl (3.4-5.0); BUN Creatinine Ratio 11.6 (10-20); Bilirubin,Total 0.6 mg/dl (0.2-1.0); Calcium 8.7 mg/dl (8.5-10.1); Creatinine Clr Calc Pharmacy 69.9 ml/min; Est GFR (African American) 105.8 ml/min; Est GFR (Non-African American) 91.3 ml/min; Globulin 2.2 gm/dl (2.5-4.0); Potassium 3.6 mmol/L (3.5-5.1); Total Protein 6.3 gm/dl (6.0-8.3)
[2021-11-19] MEDS ORDERED: OPTIRAY 320 100ml IV ONE (16:07)
--- NOTE | 2021-11-19 16:39 | CT Scan Report ---
ABDOMEN AND PELVIS CT WITH IV CONTRAST CT DOSE: 249.20 mGy.cm HISTORY: Acute generalized abdominal pain in a patient with prior cholecystectomy, gastrostomy with r ight lower quadrant ileostomy. abd pain TECHNIQUE: Multiaxial CT images of the abdomen and pelvis were performed following the IV administrat ion of 88 cc of Optiray, A dose lowering technique was utilized adhering to the principles of ALARA. COMPARISON STUDY: CT abdomen and pelvis 10/30/2021 FINDINGS: Trace left pleural effusion. Clear lung bases. There is no pneumatosis or pneumoperitoneum. The spleen, pancreas and adrenal glands are unremarkable. Cholecystectomy. Unremarkable liver. There is patency of the hepatic and portal veins. Unremarkable kidneys. The urinary bladder is unremarkabl e. Follicular changes of the ovaries. Aorta and IVC are unremarkable. There is no lymphadenopathy carmen ntified. The gastrostomy tube appears to be in satisfactory positioning. The appendix is not diagnostically vi sualized. Mild wall thickening of the mid and distal stomach is unchanged. Diminished aorta mesenteri c angle without significant upstream duodenal distention. There is no bowel obstruction or bowel wall thickening. The large bowel is decompressed. Right lower quadrant ileostomy. No ascites or mesenteri c inflammation. Unremarkable soft tissues. There is no acute fracture. Mild dextroscoliosis of the th oracolumbar junction. IMPRESSION: 1. No acute intra-abdominal or intrapelvic abnormality. 2. No bowel obstruction or bowel wall thickening. 3. Right lower quadrant ileostomy. 4. Satisfactory positioning of the gastrostomy tube. ACT 112: Negative or not required by law. The above report was generated using voice recognition software. It may contain grammatical, syntax o r spelling errors. Electronically signed by: Derrek Sow M.D. 11/19/2021 4:37 PM
--- NOTE | 2021-11-19 18:14 | History & Physical Report ---
Date of Service November 19, 2021 Assessment & Plan (1) Abdominal pain, diffuse: Plan: Patient has baseline abdominal pain/discomfort on daily basis at home, typically <5/10 on pain scale, but pain got much worse last evening and into today. Pain is centrally located/epigastric with radiation to the back. In the past she has had the pain attributed to intestinal spasm, sphincter of Oddi dysfunction, gastritis, intussusception, etc. During the previous hospitalization she had radiographic evidence of colitis - exact etiology uncertain. Further, her lipase was elevated during the previous stay - etiology also uncertain. Abd pain and other GI symptoms improved slowly through that long hospitalization. Given the persistently elevated lipase without specific etiology will pursue MRCP for further information. See below for more information. Keep NPO in meantime. IV PPI x 1 now. Dilaudid q3h prn pain. Zofran or ativan prn nausea. IV fluids. Her ileostomy output has been about double in comparison to baseline. She had a +c diff gene test on the prior admission. Will recheck c diff and if toxin is positive this time will treat with Vancomycin. Cont H2 kasia/PPI per home schedule. Chronic hydrocortisone use - convert to IV, give mild stress dosing (25mg TID). If MRCP is normal/nondiagnostic, if c diff is negative --- gastritis? (CT abd/pelvis shows gastric wall thickening) Will ask [facility] to see in consult ([facility] no longer coming to hospital for consultations). Repeat CBC, CMP, lipase, crp in am. (2) Elevated lipase: Plan: Lipase had been normal for several years and was normal on 10/30/21 at time of her previous hospitalization. She then developed an increased lipase on 11/07/21. Exact etiology uncertain. Triglycerides have been wnl despite TPN usage. Calcium wnl. She does not have a gall bladder. No etoh use. No recent viral infections although this cannot be ruled out fully. During the previous stay her CT a/p showed a normal pancreas, and today's CT also shows normal pancreas. The lipase remains mildly elevated today. Given the recurrent abdominal pain and the persistently elevated lipase will obtain MRCP. Repeat lipase & LFTs in am. Consult GI in am. Hold TPN & lipids. Lactated ringers at 100cc/hr. (3) Intestinal motility disorder: Plan: Long-standing. Uses her g-tube at home for venting purposes when she has severe nausea. She obtains relief of pain/nausea while hospitalized by placing the g-tube to gravity. Attach guardado bag tonight and allow gravity to drain g-tube. If she has persistent nausea/pain/dry heaves can attach to intermittent low-wall suction (we did so during the previous stay with significant improvement in symptoms). She was previously followed by [facility] for her GI tract disorders. Has had evaluations at other large institutions as well. She is now followed at the [facility]. They are considering small bowel transplantation for her chronic motility disorder. (4) Transaminitis: Plan: During previous hospital stay. Resolved. Etiology was uncertain but viral infection vs TPN induced vs other were entertained as possibilities. (5) Ileostomy status: Plan: Functioning well. Output has been increased above baseline, however - thus check a c diff as noted above. (6) SMAS (superior mesenteric artery syndrome): Plan: Previous history of s/p surgery at [facility]. (7) Severe protein-calorie malnutrition: Plan: 2nd to #3 and "short gut" type physiology. Follows with the Nutrition Department at [facility]. TPN was initiated in 2021 for such. Has chest a-port for TPN needs. She has had modest weight gain since TPN was started. Place TPN on hold due to #2. Recheck all labs in am. (8) Adrenal insufficiency: Plan: Will give modest stress dosing -- give hydrocortisone 50mg IV x 1 now, then 25mg TID. Wean over 48 hours. Rosalba burton. (9) On total parenteral nutrition (TPN): Plan: as above (10) Gastrostomy tube in place: Plan: no issues at this time. place g-tube to gravity/guardado bag to help with nausea. anatomically in correct position on today's CT. (11) DVT prophylaxis: Plan: given the back to back nature of her hospital stays and poor mobility she deserves chemical DVT proph. start heparin 5000 BID in am for that purpose. History of Present Illness Chief Complaint: abdominal pain Primary Care Provider: Mariah Addison, DO 31yo female with ileostomy status, g-tube status, prior h/o SMA syndrome, adrenal insufficiency, TPN dependency, h/o intussusception, GI tract motility disorder, prior h/o endometriosis s/p hysterectomy, and chronic headaches. Recent admission from 10/30 to 11/12 for colitis and pancreatitis with etiology of both uncertain. She presents with 2 days of increased ileostomy output, then the development of abdominal pain starting last pm. Patient states that following her recent hospital stay she was recovering well at home - abdominal symptoms were largely much improved, was able to tolerate PO intake (soup, liqu ids, etc), and her ostomy output was about normal. Typically she empties her ileostomy bag about 4-5 times each day. However, over the last 2 days, she has had to empty it about 8-9 times. The fluid has been pure bile. Last evening she then developed bloody, mucous-filled liquid from her rectum. She had such during the early portion of her previous hospital stay but this self-resolved. Then, the abdominal pain returned late last night. Initially it was mild/intermittent but gradually got severe through the night last pm and into today. Most of the pain is central and in the epigastric region. It radiates through to her back. She has had associated nausea with dry heaves. She denies any sick contacts at home. No fevers, but had some cold sweats/chills. No cough, sore throat, or ear pain. Denies dysuria. She used the hydrocodone liquid prescribed at hospital discharge on 11/12 and this did alleviate her pain although not completely. Allergies Allergy/AdvReac Type Severity Reaction Status Date / Time amoxicillin Allergy Intermediate RASH Verified 11/19/21 17:31 cefazolin Allergy Intermediate rash Verified 11/19/21 17:31 Cephalosporins Allergy Intermediate HIVES Verified 11/19/21 17:31 clavulanic acid Allergy Intermediate HIVES Verified 11/19/21 17:31 iron [From Venofer] Allergy Intermediate Muscle Pain Verified 11/19/21 17:31 Penicillins Allergy Intermediate HIVES Verified 11/19/21 17:31 prochlorperazine Allergy Intermediate HIVES Verified 11/19/21 17:31 promethazine Allergy Intermediate hives, Verified 11/19/21 17:31 throat swelling sulfamethoxazole Allergy Intermediate RASH Verified 11/19/21 17:31 sumatriptan Allergy Intermediate RASH Verified 11/19/21 17:31 trimethoprim Allergy Intermediate RASH Verified 11/19/21 17:31 metoclopramide AdvReac Severe anxiety/ Verified 11/19/21 17:31 jittery diphenhydramine AdvReac Intermediate Tachycardia, Verified 11/19/21 17:31 Severe Anxiety WITH IV ONLY erythromycin base AdvReac Intermediate GI SYMPTOMS Verified 11/19/21 17:31 citalopram [From Celexa] AdvReac Unknown CAN'T Verified 11/19/21 17:31 REMEMBER MULTIVITAMIN Allergy Intermediate SEE COMMENT Uncoded 11/19/21 17:31 Home Medications Medication Instructions Recorded Confirmed Type dicyclomine 10 mg capsule 10 - 20 mg PO Q6H PRN 03/07/18 11/19/21 History hyoscyamine sulfate 0.125 mg 0.125 mg SUBLINGUAL Q4H PRN 03/07/18 11/19/21 History sublingual tablet (Levsin/SL) pantoprazole 40 mg tablet,delayed 40 mg PO QAM 09/08/19 11/19/21 History release (Protonix) famotidine 40 mg tablet 20 mg PO BID 11/28/19 11/19/21 History lorazepam 2 mg/mL injection 0.5 mg BUCCAL QID PRN 12/05/19 11/19/21 History solution (Ativan) hydrocortisone 10 mg tablet 10 - 15 mg PO BID 02/07/20 11/19/21 History ondansetron 4 mg disintegrating 4 mg TRANSLINGUAL Q6H PRN 02/07/20 11/19/21 History tablet trimethobenzamide 300 mg capsule 300 mg PO Q6H PRN 02/07/20 11/19/21 History fexofenadine 180 mg tablet 180 mg PO PM 10/09/20 11/19/21 History gabapentin 250 mg/5 mL oral 300 mg PO TID 10/09/20 11/19/21 History solution fludrocortisone 0.1 mg tablet 0.1 - 0.2 mg PO UD 12/12/20 11/19/21 History acetaminophen 500 mg tablet 1,000 mg PO Q6H PRN 06/13/21 11/19/21 History (Tylenol Extra Strength) ascorbic acid (vitamin C) 500 mg 0 mg PO PM 06/13/21 11/19/21 History chewable tablet (Vitamin C) coenzyme Q10 100 mg capsule 0 mg PO PM 06/13/21 11/19/21 History (CoQ-10) multivitamin with minerals-folic 2 tab PO PM 06/13/21 11/19/21 History acid 200 mcg chewable tablet (Multivitamin Gummies) turmeric 400 mg capsule 0 mg PO PM 06/13/21 11/19/21 History vitamin B complex 1 tab PO PM 06/13/21 11/19/21 History hydrocodone 7.5 mg-acetaminophen 10 ml PO Q6H PRN #120 ml 11/12/21 11/19/21 Rx 325 mg/15 mL oral solution hydrocodone 7.5 mg-acetaminophen 10 ml FEEDING TUBE Q6H PRN 11/13/21 11/19/21 History 500 mg/15 mL oral solution Past Med/Surg History Medical History Asthma Chronic migraine Endometriosis has had 3 surgeries for this. Last surgery [address] Hemorrhagic cystitis Hypotension Intussusception PICC (peripherally inserted central catheter) in place TPN SMAS (superior mesenteric artery syndrome) History of SMAS Sphincter of Oddi dysfunction DECREASED GI MOTILITY Uses feeding tube gastroparesis and decreased GI motility can not tolerate feeding and uses TPN UTI (urinary tract infection) Surgical History H/O adenoidectomy H/O laparoscopy H/O lumpectomy right breast 2011 History of appendectomy History of bowel resection Part of duodenum removed due to necrosis; done at [facility] 2019 History of hysterectomy 09/27/19 History of removal of Port-a-Cath 10/13/[address] Geiger, [facility], due to bacteremia/sepsis. History of vascular access device 2017 Hx of colonoscopy during procedure perforated small bowel 10/27/2019 at [facility], subsequent repair of duodenal area. Hx of ileostomy Hx of tonsillectomy S/P cholecystectomy 2015 S/P wrist surgery right Family History Father Hyperlipidemia Other No significant family history Social History (Updated 11/20/21 @ 06:32 by Praneeth Liu) Smoking Status: Never smoker Second Hand Exposure: No; Hx Alcohol Use: No Hx Substance Use: No Preferred Language: Divehi Communication Ability: Effective Visual Impairment: No Limitations Hearing Ability: Normal Escape Wheel Tooth Cutter Required: No Beliefs That Will Affect Care: None marital status: Single Current Living Situation: Family Current Living Situation Comment: Lives with family. current occupational status: unemployed current occupation: completed 4-year degree at [employer] Other Information That Helps Us Care for You: No Feels Safe at Home: Yes Safety Concerns: Feels Safe At This Time Sexual Activity Comment: not sexually active Assistive Devices: Wheelchair Review of Systems Review of Systems: gen - no fevers, no rigors; poor appetite yesterday and today; fatigue eyes - no visual change HENT - no sore throat, congestion or ear pain neck - no pain CV - no pain pulm - no cough or dyspnea GI - positive for abd pain, nausea, dry heaves, increased ileostomy output, mucous/modestly bloody discharge from rectum - no dysuria or hematuria endo - thinks she took her usual hydrocortisone regimen over the last few days neuro - mild headache - chronic, daily - no change from baseline skin - no rash psych - no mood changes Physical Exam Physical Exam: gen - resting comfortably, NAD, a/o x 3, thin eyes - PERRL HENT - TMs clear b/l, nose clear, mouth with MMM, no lesions neck - no JVD, no thyroidmegaly, no masses CV - RRR, s1 s2, no murmur lungs - CTA b/l abd - mildly tender epigastric region; g-tube present - insertion site clean, dry, no erythema or drainage; ileostomy with bag in place right abdomen - bilious drainage in bag; ND; BS+; no HSM ext - no edema, pulses 2+ b/l musculo - joints without effusions skin - no rash chest - central port right chest clean, no erythema psych - a/o x 3 lymph - no cervical lymph nodes b/l Results & Data Results & Data ([facility]) Vital Signs (Past 12 Hours) Vital Signs Temp Pulse Pulse Resp BP BP Pulse Ox 11/19/21 18:08 102 H 22 105/67 100 11/19/21 16:13 103 H 25 H 99/57 L 99 11/19/21 15:55 99 11/19/21 14:45 77 95 11/19/21 14:30 68 100 11/19/21 14:29 73 85/52 L 78/54 L 99 11/19/21 14:23 70 81/59 L 98 11/19/21 14:20 74 100 11/19/21 14:16 36.9 C 78 18 100 Laboratory Results Laboratory Results - last 24 hr 11/19/21 11/19/21 11/19/21 14:28 14:28 15:32 WBC 5.84 RBC 3.69 L Hgb 11.9 L Hct 35.0 L MCV 94.9 MCH 32.2 MCHC 34.0 RDW Std Deviation 39.9 RDW Coeff of Tim 11.7 Plt Count 257 MPV 10.8 H Immature Gran % (Auto) 0.0 Neut % (Auto) 62.5 Lymph % (Auto) 25.9 [place] % (Auto) 10.1 Eos % (Auto) 1.0 Baso % (Auto) 0.5 Neut # (Auto) 3.65 Lymph # (Auto) 1.51 [place] # (Auto) 0.59 Eos # (Auto) 0.06 Baso # (Auto) 0.03 Immature Gran # (Auto) 0.00 Sodium 140 Potassium 3.6 Chloride 107 Carbon Dioxide 27 Anion Gap 6 BUN 10 Creatinine 0.86 Est Cr Clr Drug Dosing 69.9 Est GFR ( Amer) 105.8 Est GFR (Non-Af Amer) 91.3 BUN/Creatinine Ratio 11.6 Glucose 95 POC Glucose Lactate Calcium 8.7 Total Bilirubin 0.6 AST 14 ALT 18 Alkaline Phosphatase 50 Total Protein 6.3 Albumin 4.1 Globulin 2.2 L Albumin/Globulin Ratio 1.9 Lipase 144 H Urine Color Urine Appearance Urine pH Ur Specific Pinch Urine Protein Urine Glucose (UA) Urine Ketones Urine Blood Urine Nitrite Urine Bilirubin Urine Urobilinogen Ur Leukocyte Esterase SARS-CoV-2, RNA, NAAT NEGATIVE 11/19/21 11/19/21 11/20/21 16:59 23:53 04:09 WBC RBC Hgb Hct MCV MCH MCHC RDW Std Deviation RDW Coeff of Tim Plt Count MPV Immature Gran % (Auto) Neut % (Auto) Lymph % (Auto) [place] % (Auto) Eos % (Auto) Baso % (Auto) Neut # (Auto) Lymph # (Auto) [place] # (Auto) Eos # (Auto) Baso # (Auto) Immature Gran # (Auto) Sodium Potassium Chloride Carbon Dioxide Anion Gap BUN Creatinine Est Cr Clr Drug Dosing Est GFR ( Amer) Est GFR (Non-Af Amer) BUN/Creatinine Ratio Glucose POC Glucose 103 H 99 Lactate 0.5 Calcium Total Bilirubin AST ALT Alkaline Phosphatase Total Protein Albumin Globulin Albumin/Globulin Ratio Lipase Urine Color Urine Appearance Urine pH Ur Specific Pinch Urine Protein Urine Glucose (UA) Urine Ketones Urine Blood Urine Nitrite Urine Bilirubin Urine Urobilinogen Ur Leukocyte Esterase SARS-CoV-2, RNA, NAAT 11/20/21 04:20 WBC RBC Hgb Hct MCV MCH MCHC RDW Std Deviation RDW Coeff of Tim Plt Count MPV Immature Gran % (Auto) Neut % (Auto) Lymph % (Auto) [place] % (Auto) Eos % (Auto) Baso % (Auto) Neut # (Auto) Lymph # (Auto) [place] # (Auto) Eos # (Auto) Baso # (Auto) Immature Gran # (Auto) Sodium Potassium Chloride Carbon Dioxide Anion Gap BUN Creatinine Est Cr Clr Drug Dosing Est GFR ( Amer) Est GFR (Non-Af Amer) BUN/Creatinine Ratio Glucose POC Glucose Lactate Calcium Total Bilirubin AST ALT Alkaline Phosphatase Total Protein Albumin Globulin Albumin/Globulin Ratio Lipase Urine Color Yellow Urine Appearance Clear Urine pH 5.5 Ur Specific Pinch 1.037 H Urine Protein Negative Urine Glucose (UA) Negative Urine Ketones 1+ H Urine Blood Negative Urine Nitrite Negative Urine Bilirubin Negative Urine Urobilinogen Negative Ur Leukocyte Esterase Negative SARS-CoV-2, RNA, NAAT Diagnostic Findings Abdomen/Pelvis CT 11/19/21 14:[address] WITH IV CONTRAST CT DOSE: 249.20 mGy.cm HISTORY: Acute generalized abdominal pain in a patient with prior cholecystectomy, gastrostomy with right lower quadrant ileostomy. abd pain TECHNIQUE: Multiaxial CT images of the abdomen and pelvis were performed following the IV administration of 88 cc of Optiray, A dose lowering technique was utilized adhering to the principles of ALARA. COMPARISON STUDY: CT abdomen and pelvis 10/30/2021 FINDINGS: Trace left pleural effusion. Clear lung bases. There is no pneumatosis or pneumoperitoneum. The spleen, pancreas and adrenal glands are unremarkable. Cholecystectomy. Unremarkable liver. There is patency of the hepatic and portal veins. Unremarkable kidneys. The urinary bladder is unremarkable. Follicular changes of the ovaries. Aorta and IVC are unremarkable. There is no lymphadenopathy identified. The gastrostomy tube appears to be in satisfactory positioning. The appendix is not diagnostically visualized. Mild wall thickening of the mid and distal stomach is unchanged. Diminished aorta mesenteric angle without significant upstream duodenal distention. There is no bowel obstruction or bowel wall thickening. The large bowel is decompressed. Right lower quadrant ileostomy. No ascites or mesenteric inflammation. Unremarkable soft tissues. There is no acute fracture. Mild dextroscoliosis of the thoracolumbar junction. IMPRESSION: 1. No acute intra-abdominal or intrapelvic abnormality. 2. No bowel obstruction or bowel wall thickening. 3. Right lower quadrant ileostomy. 4. Satisfactory positioning of the gastrostomy tube. ACT 112: Negative or not required by law. The above report was generated using voice recognition software. It may contain grammatical, syntax or spelling errors. Electronically signed by: Derrek Sow M.D. 11/19/2021 4:37 PM PG Care Time/CCT Total # of Minutes Spent Total Time Spent with Patient: Total time spent is greater than 50% in coordination of care (as documented) at patient's floor/unit and/or counseling patient: Coding Level of Care Code INT OBSERVATION CARE 70M LVL 3 Diagnoses Abdominal pain, diffuse R10.84 Elevated lipase R74.8 Intestinal motility disorder K59.9 Transaminitis R74.01 Ileostomy status Z93.2 SMAS (superior mesenteric artery syndrome) K55.1 Severe protein-calorie malnutrition E43 Adrenal insufficiency E27.40 On total parenteral nutrition (TPN) Z78.[address] Z93.1 DVT prophylaxis Z29.9
[2021-11-19] MEDS ORDERED: HYDROCORTISONE SOD SUCCINATE 100 MG/2 ML VIAL IV STA (18:44)
[2021-11-19] MEDS ORDERED: PANTOprazole 40 MG in SYRINGE 0 ML IV ONE (19:15)
[2021-11-19] MEDS ORDERED: ACETAMINOPHEN 500 MG TAB PO PRN (20:59)
[2021-11-19] MEDS ORDERED: LORazepam 2 MG/1 ML VIAL IV STA (20:59)
[2021-11-19] MEDS ORDERED: LORazepam 0.5 MG in SYRINGE 0.25 ML IV SCH (21:30)
[2021-11-19] MEDS: HYDROmorphone INJ 0.5 MG/0.5 ML SYR IV PRN (21:47)
[2021-11-19] MEDS: GABAPENTIN 250 MG/5 ML 470 ML BTL PO SCH (23:03)
[2021-11-19] MEDS: FEXOFENADINE HCL 180 MG TAB PO SCH (23:03)
[2021-11-19] MEDS: FAMOTIDINE 20 MG in SYRINGE 3 ML IV SCH (23:03)
[2021-11-19] MEDS: FLUDROCORTISONE ACETATE 0.1 MG TAB PO SCH (23:04)
[2021-11-19] MEDS: ONDANSETRON INJ 2 MG/ML 2 ML VIAL IV PRN (23:04)
[2021-11-19] MEDS: POTASSIUM CHLORIDE 20 MEQ in LACTATED RINGER'S 1,000 ML IV SCH (23:04)
[2021-11-19] MEDS: CEROVITE ADV FORMULA TAB PO SCH (23:04)
[2021-11-20] MEDS: HYDROmorphone INJ 0.5 MG/0.5 ML SYR IV PRN ×8 (00:51→23:41)
[2021-11-20] MEDS: HYDROCORTISONE SOD 25 MG in SYRINGE 0 ML IV SCH ×4 (00:52→23:45)
[2021-11-20] MEDS: ONDANSETRON INJ 2 MG/ML 2 ML VIAL IV PRN ×2 (04:03→14:09)
[2021-11-20 04:27] LABS: Appearance Urine Clear (Clear); Bilirubin Urine Negative (Negative); Blood Urine Negative (Negative); Color Urine Yellow; Glucose Urine UA Negative (Negative); Ketones Urine 1+ (Negative); Leukocyte Esterase Urine Negative (Negative); Nitrite Urine Negative (Negative); Protein Urine Negative (Negative); Specific Gravity Urine 1.037 (1.000-1.030); Urobilinogen Urine Negative (Negative); pH Urine 5.5 (4.5-7.5)
[2021-11-20] MEDS: LORazepam 0.5 MG in SYRINGE 0.25 ML IV PRN ×3 (07:53→23:41)
[2021-11-20] MEDS: PANTOprazole 40 MG TAB PO SCH (08:03)
[2021-11-20] MEDS: FLUDROCORTISONE ACETATE 0.1 MG TAB PO SCH ×2 (08:06→20:23)
[2021-11-20] MEDS: HEPARIN SOD 5,000 UNIT/0.5 ML VIAL SQ SCH ×2 (08:06→20:25)
[2021-11-20] MEDS: GABAPENTIN 250 MG/5 ML 470 ML BTL PO SCH ×3 (08:14→20:30)
[2021-11-20] MEDS: FAMOTIDINE 20 MG in SYRINGE 3 ML IV SCH ×2 (08:16→20:30)
[2021-11-20 08:32] LABS: Basophils # (auto) 0.03 K/uL (0-0.2); Basophils % (auto) 0.6 %; Hematocrit (blood only) 26.6 % (37-47); Immature Granulocytes # (auto) 0.01 K/uL (0.00-0.02); Immature Granulocytes % (auto) 0.2 %; Lymphocytes # (auto) 1.05 K/uL (1.2-3.4); Lymphocytes % (auto) 21.3 %; Mean Corpuscular Hemoglobin 32.4 pg (25-34); Mean Corpuscular Hgb Conc 33.8 g/dL (32-36); Mean Corpuscular Volume 95.7 fL (80-100); Monocytes # (auto) 0.47 K/uL (0.11-0.59); Monocytes % (auto) 9.5 %; Neutrophils # (auto) 3.38 K/uL (1.4-6.5); Neutrophils % (auto) 68.4 %; Platelet Count 177 K/uL (130-400); RDW Coefficient of Variation 11.3 % (11.5-14.5); RDW Standard Deviation 39.2 fL (36.4-46.3); Red Blood Count 2.78 M/uL (4.2-5.4); White Blood Count 4.94 K/uL (4.8-10.8)
[2021-11-20 08:51] LABS: Alanine Aminotransferase 11 U/L (7-52); Albumin Globulin Ratio 1.9 (0.9-2); Albumin Level 2.7 gm/dl (3.4-5.0); Alkaline Phosphatase 35 U/L (34-104); Anion Gap 10 (3-11); Aspartate Aminotransferase 9 U/L (13-39); BUN Creatinine Ratio 17.5 (10-20); Bilirubin,Total 0.4 mg/dl (0.2-1.0); Blood Urea Nitrogen 7 mg/dl (6-23); C Reactive Protein < 0.50 mg/dl (0-0.5); Calcium 7.1 mg/dl (8.5-10.1); Carbon Dioxide 20 mmol/L (21-32); Chloride 108 mmol/L (98-107); Creatinine Clr Calc Pharmacy 152.7 ml/min; Est GFR (African American) > 150.0 ml/min; Est GFR (Non-African American) 140.8 ml/min; Globulin 1.4 gm/dl (2.5-4.0); Glucose 67 mg/dl (70-99(Fasting)); Lipase 29 U/L (11-82); Magnesium 1.2 mg/dl (1.7-2.4); Potassium 3.6 mmol/L (3.5-5.1); Sodium 138 mmol/L (136-145); Total Protein 4.1 gm/dl (6.0-8.3)
[2021-11-20] MEDS: POTASSIUM CHLORIDE 20 MEQ in LACTATED RINGER'S 1,000 ML IV SCH ×2 (09:18→19:43)
[2021-11-20 09:21] LABS: Pregnancy Test, Serum Negative (Negative)
--- NOTE | 2021-11-20 09:33 | Magnetic Resonance Report ---
MR MRCP HISTORY: 31 years-old Female abd pain, elevated lipase, eval CBD stone/etc elevated lipase with acut e generalized abdominal pain COMPARISON: CT abdomen pelvis 11/19/2021, MRCP 07/14/2019 TECHNIQUE: MRCP without the use of IV contrast was obtained according to institutional protocol. FINDINGS: Indeterminate 9 mm T2 hyperintense focus of the right breast. Mild thoracic levoscoliosis. Unremarkab le chest. Gastrostomy tube appears to be in satisfactory positioning. Cholecystectomy. Normal caliber of the common bile duct which measures 4 mm. No biliary strictures or choledocholithiasis. No pancre atic ductal dilation or pancreatic divisum identified. Pancreas is unremarkable. The study is mildly motion degraded. No free fluid or bowel distention. The solid abdominal organs are unremarkable. Unre markable soft tissues. IMPRESSION: 1. Prior cholecystectomy. 2. No biliary ductal dilation or choledocholithiasis. ACT 112: Negative or not required by law. The above report was generated using voice recognition software. It may contain grammatical, syntax o r spelling errors. Electronically signed by: Derrek Sow M.D. 11/20/2021 9:31 AM
--- NOTE | 2021-11-20 09:41 | Gastrointestinal Consultation ---
Date of Consultation November 20, 2021 Assessment & Plan (1) Abdominal pain, diffuse: (2) SMAS (superior mesenteric artery syndrome): (3) Intestinal motility disorder: (4) Elevated lipase: 1) Await results of MRCP & Stool studies to exclude acute issues, however suspect this is an acute exacerbation of patient's chronic problem. 2) Given elevated lipase, can hold feeds until symptoms improve. 3) If no acute issues found, can consider pain management consultation for assistance with managing her discomfort until she gets to the point of her small bowel transplant at [facility] in January. 4) Given the complexity of the patient's situation and extensive previous work- up at a tertiary level, I do not have further interventions to offer other than the recommendations to exclude acute issues. I would continue with supportive care and have patient follow-up with [facility]. Supervising Physician Co-Signing Physician Notes I personally evaluated the patient and agree with the findings as documented by Eneida Rand, PAC Exam: Constitutional: WD/WN, vitals as above General: EOM intact bilaterally Neck: normal visual inspection Respiratory: normal respiratory effort, lungs clear to auscultation Cardiovascular: RRR, no murmur, no edema Gastrointestinal: abdomenwith ileostomy in place c/d/i, nondistended, soft, mild tenderness along midline scar, Musculoskeletal: no cyanosis, head normal to inspection Skin: no rashes, warm and dry Neurologic: moves all extremities Psychiatric: A and O x3, euthymic affect MRCP unremarkable, stool cdiff toxin negative. agree with pain management evaluation and tx at this time. monitor H/H re: rectal bleeding, supportive care for now History of Present Illness Reason for Consultation: acute on chronic abdominal pain, ileostomy, elevated lipase, motility disorder, g tube status Attending Physician: Ramses Layne DO History of Present Illness Patient is a 31 yo female with a PMH of SMA syndrome s/p resection with ile ostomy, history of intussusception with J tube, now with G tube and TPN fed. She is a patient of [facility] & follows at [facility] as well due to an upcoming small bowel transplant in January. The patient has frequent readmissions for the same issue. She notes that noticed worsening epigastric abdominal pain and increased ostomy output. She notes this is how her hospitalizations usually begin. She presented to the ER. A CT abdomen/pelvis did not identify any acute issues. LFTs unremarkable. Lipase was mildly elevated, however it appears that her lipase has been elevated since October 2021. No laboratory or imaging evidence of ischemia. An MRCP is pending radiology review and a C diff study is pending. Allergies Allergy/AdvReac Type Severity Reaction Status Date / Time morphine Allergy Severe Severe Verified 11/20/21 12:01 abdominal Pain, sphincter of oddi spasms amoxicillin Allergy Intermediate RASH Verified 11/19/21 17:31 cefazolin Allergy Intermediate rash Verified 11/19/21 17:31 Cephalosporins Allergy Intermediate HIVES Verified 11/19/21 17:31 clavulanic acid Allergy Intermediate HIVES Verified 11/19/21 17:31 iron [From Venofer] Allergy Intermediate Muscle Pain Verified 11/19/21 17:31 Penicillins Allergy Intermediate HIVES Verified 11/19/21 17:31 prochlorperazine Allergy Intermediate HIVES Verified 11/19/21 17:31 promethazine Allergy Intermediate hives, Verified 11/19/21 17:31 throat swelling sulfamethoxazole Allergy Intermediate RASH Verified 11/19/21 17:31 sumatriptan Allergy Intermediate RASH Verified 11/19/21 17:31 trimethoprim Allergy Intermediate RASH Verified 11/19/21 17:31 metoclopramide AdvReac Severe anxiety/ Verified 11/19/21 17:31 jittery diphenhydramine AdvReac Intermediate Tachycardia, Verified 11/19/21 17:31 Severe Anxiety WITH IV ONLY erythromycin base AdvReac Intermediate GI SYMPTOMS Verified 11/19/21 17:31 citalopram [From Celexa] AdvReac Unknown CAN'T Verified 11/19/21 17:31 REMEMBER MULTIVITAMIN Allergy Intermediate SEE COMMENT Uncoded 11/19/21 17:31 Home Medications Medication Instructions Recorded Confirmed Type dicyclomine 10 mg capsule 10 - 20 mg PO Q6H PRN 03/07/18 11/19/21 History hyoscyamine sulfate 0.125 mg 0.125 mg SUBLINGUAL Q4H PRN 03/07/18 11/19/21 History sublingual tablet (Levsin/SL) pantoprazole 40 mg tablet,delayed 40 mg PO QAM 09/08/19 11/19/21 History release (Protonix) famotidine 40 mg tablet 20 mg PO BID 11/28/19 11/19/21 History lorazepam 2 mg/mL injection 0.5 mg BUCCAL QID PRN 12/05/19 11/19/21 History solution (Ativan) hydrocortisone 10 mg tablet 10 - 15 mg PO BID 02/07/20 11/19/21 History ondansetron 4 mg disintegrating 4 mg TRANSLINGUAL Q6H PRN 02/07/20 11/19/21 History tablet trimethobenzamide 300 mg capsule 300 mg PO Q6H PRN 02/07/20 11/19/21 History fexofenadine 180 mg tablet 180 mg PO PM 10/09/20 11/19/21 History gabapentin 250 mg/5 mL oral 300 mg PO TID 10/09/20 11/19/21 History solution fludrocortisone 0.1 mg tablet 0.1 - 0.2 mg PO UD 12/12/20 11/19/21 History acetaminophen 500 mg tablet 1,000 mg PO Q6H PRN 06/13/21 11/19/21 History (Tylenol Extra Strength) ascorbic acid (vitamin C) 500 mg 0 mg PO PM 06/13/21 11/19/21 History chewable tablet (Vitamin C) coenzyme Q10 100 mg capsule 0 mg PO PM 06/13/21 11/19/21 History (CoQ-10) multivitamin with minerals-folic 2 tab PO PM 06/13/21 11/19/21 History acid 200 mcg chewable tablet (Multivitamin Gummies) turmeric 400 mg capsule 0 mg PO PM 06/13/21 11/19/21 History vitamin B complex 1 tab PO PM 06/13/21 11/19/21 History hydrocodone 7.5 mg-acetaminophen 10 ml PO Q6H PRN #120 ml 11/12/21 11/19/21 Rx 325 mg/15 mL oral solution hydrocodone 7.5 mg-acetaminophen 10 ml FEEDING TUBE Q6H PRN 11/13/21 11/19/21 History 500 mg/15 mL oral solution Patient History Medical History Asthma Chronic migraine Endometriosis has had 3 surgeries for this. Last surgery [address] Hemorrhagic cystitis Hypotension Intussusception PICC (peripherally inserted central catheter) in place TPN SMAS (superior mesenteric artery syndrome) History of SMAS Sphincter of Oddi dysfunction DECREASED GI MOTILITY Uses feeding tube gastroparesis and decreased GI motility can not tolerate feeding and uses TPN UTI (urinary tract infection) Surgical History H/O adenoidectomy H/O laparoscopy H/O lumpectomy right breast 2011 History of appendectomy History of bowel resection Part of duodenum removed due to necrosis; done at [facility] 2019 History of hysterectomy 09/27/19 History of removal of Port-a-Cath 10/13/[address] Geiger, [facility], due to bacteremia/sepsis. History of vascular access device 2017 Hx of colonoscopy during procedure perforated small bowel 10/27/2019 at [facility], subsequent repair of duodenal area. Hx of ileostomy Hx of tonsillectomy S/P cholecystectomy 2015 S/P wrist surgery right Family History Father Hyperlipidemia Other No significant family history Social History Smoking Status: Never smoker Second Hand Exposure: No; Hx Alcohol Use: No Hx Substance Use: No Preferred Language: [place] Communication Ability: Effective Visual Impairment: No Limitations Hearing Ability: Normal Health Informatics Specialist Required: No Beliefs That Will Affect Care: None marital status: Single Current Living Situation: Family Current Living Situation Comment: Lives with family. current occupational status: unemployed current occupation: completed 4-year degree at [employer] How many Children do You have: 0 Other Information That Helps Us Care for You: No Feels Safe at Home: Yes Safety Concerns: Feels Safe At This Time Sexual Activity Comment: not sexually active Assistive Devices: None Review of Systems Constitutional: no fever and no chills Respiratory: no cough and no dyspnea Cardiovascular: no chest pain Gastrointestinal: + abdominal pain and + diarrhea/loose stools; no nausea, no vomiting and no constipation Integumentary: no problem reported Psychiatric: no problem reported Hematologic / Lymphatic: no unexplained weight loss Physical Exam Constitutional: well developed Neck: normal visual inspection Respiratory: normal respiratory effort Cardiovascular: Rate/Rhythm: regular rate Gastrointestinal (Abdomen): ostomy noted; G tube placed, normoactive bowel sounds, + guarding Musculoskeletal: Head/Neck/Chest: normocephalic Skin: no rashes Psychiatric: Orientation: alert and oriented x 3 Results & Data ([facility]) Vital Signs (Past 12 Hours) Vital Signs Temp Pulse Resp BP Pulse Ox 11/20/21 08:28 36.8 C 80 16 99/63 L 96 11/19/21 22:35 37 C 73 16 100/62 98 PG Care Time/CCT Total # of Minutes Spent Total Time Spent with Patient: Total time spent is greater than 50% in coordination of care (as documented) at patient's floor/unit and/or counseling patient: Coding Level of Care Code 10253 Inpt Consult Level 4 Diagnoses Abdominal pain, diffuse R10.84 SMAS (superior mesenteric artery syndrome) K55.1 Intestinal motility disorder K59.9 Elevated lipase R74.8
[2021-11-20 16:13] LABS: Cdiff Antigen Positive; Cdiff Toxin A+B Negative Cdiff Toxin (Negative)
--- NOTE | 2021-11-20 17:09 | Hospitalist Progress Note ---
Date of Service November 20, 2021 Assessment & Plan (1) Abdominal pain, diffuse: (2) Nausea and vomiting: (3) Anemia: (4) Uses feeding tube: (5) Elevated lipase: (6) Transaminitis: (7) Adrenal insufficiency: (8) On total parenteral nutrition (TPN): Plan: Pilar is a 31-year-old female with past medical history of ileostomy status, g-tube status, prior h/o SMA syndrome, adrenal insufficiency, TPN dependency, h/o intussusception, GI tract motility disorder, prior h/o endometriosis s/p hysterectomy, and chronic headaches coming in for abdominal pain and nausea and vomiting. Abdominal Pain: -Lipase 144 on admission however down to 29 on repeat. -Liver enzymes within normal limits. -CT A/P w/o evidence of acute intra-abdominal or intrapelvic abnormality. -MRCP w/o biliary ductal dilation or choledocholithiasis -C Diff gene positive however toxin negative - along with slowdown in diarrhea less likely C diff infection -More likely abdominal adhesions and motility issues causing pain. -Negative MRCP and repeat lipase WNL reassuring to r/o pancreas as cause. -GI consulted: -Suspect acute exacerbation of patient's chronic issues. Hold feeds until symptoms improve. -Can pain management consultation. -Trigger points palpated on physical exam - will consult pain management for further possible management or trigger point injections. -Continue PPI/H2 kasia per home regimen. -Keep on IVF while NPO. Nausea/Vomiting: -As above, most likely related to acute exacerbation of chronic issues (motility, adhesions). -PRN Zofran and Ativan for nausea. -Will try to advance feeds tomorrow if patient feeling better. Anemia: -Hgb 11.9 upon admission, 9.0 this morning. -Drop may be related to rectal bleeding that has since stopped. May need colonoscopy outpatient. -Will order AM CBC, transfuse if <7.0 Elevated Lipase: -Lipase 144 on admission, down to 29 on repeat. -Resolved. On TPN: -Patient on TPN at home usually. -Was able to tolerate PO intake after last discharge. -Holding TPN today for bowel rest. -May restart tomorrow based on how patient feels. -Keep IVF while NPO. 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 -Patient is candidate for small bowel transplant at [facility] and going through the process for approval. -Continue supportive management as above. Adrenal insufficiency: -Given 50mg IV one time dose of hydrocortisone on admission. -Continue home Florinef. Hypomagnesemia: -Magnesium 1.2 on admission. -Replenish with 3 bags of Mg. -AM Mg level. DVT: Heparin 5000 BID due to immobility. F/E/N/GI: NPO while giving bowel rest, may restart TPN tomorrow depending on how patient feels. Repeat BMP and Mg Code Status: Full code Dispo: Med/Surg. Admission and Anticipated Discharge Date Admission Date: November 19, 2021 Supervising Physician Co-Signing Physician Notes I personally examined the patient and verified all solorzano points of history and exam, discussed case, and agree with decision making with Dr Douglas Ongoing abdominal pain. No further bleeding. Case discussed with GIinput appreciated. Vitals noted, in general she is awake and alert pleasant no distress. HEENT normocephalic atraumatic mucous membranes moist. Breathing unlabored no a ccessory muscle use good effort. Abdomen is soft, has a G-tube as well as an ostomy. Diffuse vague tenderness. Point of maximal tenderness at her distal and of her midline abdominal incisionwithout tight discrete area that feels fairly consistent with a trigger point. Also may be has another smaller area left abdomen lateral to her ostomy bag. Again quite tender. Abdominal pain, nausea vomitingseems to be multifactorial, motility and prior abdominal surgery/scarring almost certainly playing large roles. Given that these are unfortunately chronic very severe problemsright now the only major management appears to be symptom control and time. She is pursuing a small bowel transplanthopefully this will be helpful, but obviously we need to help her as best as possible until then. I do wonder if she has a couple of trigger points on her anterior abdominal wallwhile I discussed with her that these would absolutely not to be a majority of her pain, given that they can cause significant painas well as a "phantom nausea" if they are truly there, alleviating them may at least help make a dent in some of her pain. We will ask pain management to evaluate as well. Rectal bleeding and acute blood loss anemiahas now stopped. No indication for urgent scope. Follow closely. Probably should have a scope as an outpatient if bleeding does not continue Chronic malnutritionresume TPN once possible. Otherwise as above Subjective Patient seen at the bedside today states her condition is about the same as yesterday. She is still having painful abdominal discomfort which she says is greater than her usual baseline. She is also still having some nausea although no vomiting today yet. She had some bleeding from her rectum before coming in that she said was present the previous hospitalization. The bleeding was accompanied by pain that was excruciating. She states her ileostomy bag has only needed to be changed one or two times today, which is a decrease from when she first came in. Denies any fevers, chills, shortness of breath. Review of Systems Constitutional: as per Subjective / HPI Physical Exam Constitutional: WD/WN, vitals as above Eyes: PERRL, conjunctivae normal, anicteric sclerae Respiratory: normal respiratory effort, lungs clear to auscultation Cardiovascular: RRR, no murmur, no edema Gastrointestinal (Abdomen): Ileostomy bag and g-tube in place without surrounding erythema or edema. BS+, non-distended. Mild tenderness to palpation at midline abdominal scar, most tender at center of scar. Results & Data Results & Data ([facility]) Vital Signs (Past 12 Hours) Vital Signs Temp Pulse Resp BP Pulse Ox 11/20/21 15:13 37.1 C 83 18 102/67 99 11/20/21 08:28 36.8 C 80 16 99/63 L 96 Resident Activity Tracking Resident Involvement: Resident Care Provided Care Provided: Adult Hospital Medicine
--- NOTE | 2021-11-20 19:09 | Billing Data ---
Date of Service November 20, 2021 Coding Level of Care Code 90204 Subseq Obs Care Lvl 3
[2021-11-20] MEDS: MAGNESIUM SULFATE / D5W 1 GM/100 ML BAG IV SCH ×3 (19:50→23:40)
[2021-11-20] MEDS: FEXOFENADINE HCL 180 MG TAB PO SCH (20:23)
[2021-11-20] MEDS: CEROVITE ADV FORMULA TAB PO SCH (20:34)
--- NOTE | 2021-11-20 21:48 | Electrocardiogram Report ---
Test Reason : Blood Pressure : / mmHG Vent. Rate : 063 BPM Atrial Rate : 063 BPM P-R Int : 118 ms QRS Dur : 090 ms QT Int : 412 ms P-R-T Axes : 072 060 041 degrees QTc Int : 421 ms Poor data quality, interpretation may be adversely affected Normal sinus rhythm Normal ECG When compared with ECG of 12-DEC-2020 18:09, Vent. rate has decreased BY 38 BPM Confirmed by Jonh Nathan ([id number]) on 11/20/2021 9:48:24 PM Referred By: REFERRED SELF Confirmed By:John Nathan
[2021-11-21] MEDS: ONDANSETRON INJ 2 MG/ML 2 ML VIAL IV PRN ×3 (01:39→21:22)
[2021-11-21] MEDS: HYDROmorphone INJ 0.5 MG/0.5 ML SYR IV PRN ×4 (02:50→13:46)
[2021-11-21] MEDS ORDERED: HYDROmorphone INJ 0.5 MG/0.5 ML SYR IV STA (04:36)
[2021-11-21] MEDS ORDERED: ACETAMINOPHEN 1000 MG/100 ML IV IV STA (04:36)
--- NOTE | 2021-11-21 04:39 | Communication Note ---
Date of Service: November 21, 2021 messaged by nursing about patient's abd pain. hunched over. requesting now dose of dilaudid. It has been 1.5 hr since her previous dose. reviewed chart. Ordering now dose, as an exception. Ordering IV tylenol along with this.
[2021-11-21] MEDS ORDERED: HYDROmorphone INJ 0.5 MG/0.5 ML SYR ONE (04:52)
[2021-11-21] MEDS: HYOSCYAMINE SULFATE 0.125 MG TAB SL PRN ×2 (05:47→16:17)
[2021-11-21] MEDS: POTASSIUM CHLORIDE 20 MEQ in LACTATED RINGER'S 1,000 ML IV SCH ×2 (05:48→16:14)
--- NOTE | 2021-11-21 06:58 | Hospitalist Progress Note ---
Date of Service November 21, 2021 Assessment & Plan (1) Abdominal pain, diffuse: (2) Nausea and vomiting: (3) Anemia: (4) Uses feeding tube: (5) Elevated lipase: (6) Transaminitis: (7) Adrenal insufficiency: (8) On total parenteral nutrition (TPN): Plan: Pilar is a 31-year-old female with past medical history of ileostomy status, g-tube status, prior h/o SMA syndrome, adrenal insufficiency, TPN dependency, h/o intussusception, GI tract motility disorder, prior h/o endometriosis s/p hysterectomy, and chronic headaches coming in for abdominal pain and nausea and vomiting. Abdominal Pain: -Lipase 144 on admission however down to 29 on repeat. -Liver enzymes within normal limits. -CT A/P w/o evidence of acute intra-abdominal or intrapelvic abnormality. -MRCP w/o biliary ductal dilation or choledocholithiasis -C Diff gene positive however toxin negative - along with slowdown in diarrhea less likely C diff infection -More likely abdominal adhesions and motility issues causing pain. -Negative MRCP and repeat lipase WNL reassuring to r/o pancreas as cause. -GI consulted: -Suspect acute exacerbation of patient's chronic issues. Hold feeds until symptoms improve. -Can pain management consultation. -Pain management consulted for trigger point injection treatment - two trigger point injections. -Continue PPI/H2 kasia per home regimen. -NPO, will restart TPN tonight. -Tylenol scheduled 1000mg q8h -Patient with frequent need for Dilaudid, discussed trying DIRECTOR OF SECURITIES AND REAL ESTATE Dilaudid for a few days to get over pain exacerbation -Ordered DIRECTOR OF SECURITIES AND REAL ESTATE: 1mg Dilaudid to start. -0.25mg, Q15min. -Will reassess pain tomorrow morning. -Pt may benefit from oral breakthrough pain medication when dispo planning for discharge. -Continue to monitor symptoms through acute exacerbation. Nausea/Vomiting: -As above, most likely related to acute exacerbation of chronic issues (motility, adhesions). -PRN Zofran and Ativan for nausea. May be 2/2 pain. -Will try to advance feeds tomorrow if patient feeling better. Anemia: -Hgb 11.9 upon admission, 10.2 this morning. -Drop may be related to rectal bleeding that has since stopped. May need colonoscopy outpatient. -AM CBC, transfuse if <7.0 Rectal bleeding/Pain: -Pt with history of rectal pain lasting 1-1.5hrs culminating in bleeding/discharge. -Up-to-date with evidence in 1 trial for decreased rectal spasm/pain duration in patient's taking inhaled Beta2 agonist -Consider Albuterol PRN for proctalgia fugax in times of rectal pain/spasm - may shorten duration. Elevated Lipase: -Lipase 144 on admission, down to 29 on repeat. -Resolved. On TPN: -Patient on TPN at home usually. -Was able to tolerate PO intake after last discharge. -Restart TPN today given low likelihood of pancreatic involvement as above. 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 -Patient is candidate for small bowel transplant at [facility] and going through the process for approval. -Continue supportive management as above. Adrenal insufficiency: -Given 50mg IV one time dose of hydrocortisone on admission. -Continue home Florinef. Hypomagnesemia: -Magnesium 1.2 on admission. -Replenish with 3 bags of Mg. DVT: Heparin 5000 BID due to immobility. F/E/N/GI: NPO while giving bowel rest, may restart TPN tomorrow depending on how patient feels. Repeat BMP and Mg Code Status: Full code Dispo: Med/Surg. Admission and Anticipated Discharge Date Admission Date: November 19, 2021 Supervising Physician Co-Signing Physician Notes I personally examined the patient and verified all solorzano points of history and exam, discussed case, and agree with decision making with Dr Douglas pain still fairly bad. appreciate pain management injection of trigger points. nausea worse but notes that the nausea is probalby worse becuase the pain is worse Vitals noted, appearing in pain. Abdominal pain, nausea vomitingseems to be multifactorial, motility and prior abdominal surgery/scarring almost certainly playing large roles. Given that these are unfortunately chronic very severe problemsright now the only major management appears to be symptom control and time. She is pursuing a small bowel transplanthopefully this will be helpful, but obviously we need to help her as best as possible until then. for now w acute worsening - DIRECTOR OF SECURITIES AND REAL ESTATE to help w symptoms. time for trigger point injections to hopefully help. discussed GI/pain psychology. discussed albuterol for rectal spasms. consider nucynta, consider lyrica. Rectal bleeding and acute blood loss anemiahas now stopped. No indication for urgent scope. Follow closely. Probably should have a scope as an outpatient if bleeding does not continue. follow. Chronic malnutritionresume TPN today Otherwise as above Subjective Patient seen at bedside this morning, overnight patient had persistence of severe abdominal pain requiring additional dose of Dilaudid. Upon speaking to the patient this morning she is still having pain in the abdomen as well as nausea. Patient states she may need Dilaudid every 2 instead of every 3 because the pain medication wears off after 2 hours. She also reiterated that she does not request pain medication unless she is really suffering. Review of Systems Constitutional: as per Subjective / HPI Physical Exam Constitutional: WD/WN, vitals as above Eyes: PERRL, conjunctivae normal, anicteric sclerae Respiratory: normal respiratory effort, lungs clear to auscultation Cardiovascular: RRR, no murmur, no edema Gastrointestinal (Abdomen): Ileostomy bag and g-tube in place without surrounding erythema or edema. BS+, non-distended. Mild tenderness to palpation at midline abdominal scar, most tender at center of scar. Results & Data Results & Data ([facility]) Vital Signs (Past 12 Hours) Vital Signs Temp Pulse Resp BP Pulse Ox 11/20/21 21:50 36.7 C 72 18 101/65 96 Resident Activity Tracking Resident Involvement: Resident Care Provided Care Provided: Adult [facility] Medicine
[2021-11-21] MEDS ORDERED: BUPIVACAINE 0.5 % 5 MG/1 ML MPF 30ML VIAL ONE (07:45)
[2021-11-21] MEDS ORDERED: TRIAMCINOLONE ACET 40 MG/ML VIAL ONE (07:45)
[2021-11-21] MEDS: LORazepam 0.5 MG in SYRINGE 0.25 ML IV PRN ×2 (07:46→17:10)
[2021-11-21] MEDS: HYDROCORTISONE SOD 25 MG in SYRINGE 0 ML IV SCH ×2 (07:50→16:18)
[2021-11-21 08:01] LABS: Basophils # (auto) 0.02 K/uL (0-0.2); Basophils % (auto) 0.4 %; Eosinophils # (auto) 0.01 K/uL (0-0.50); Eosinophils % (auto) 0.2 %; Hematocrit (blood only) 29.7 % (34.1-44.9); Hemoglobin 10.2 g/dl (12.0-16.0); Immature Granulocytes # (auto) 0.01 K/uL (0.00-0.02); Immature Granulocytes % (auto) 0.2 %; Lymphocytes # (auto) 1.35 K/uL (1.2-3.4); Lymphocytes % (auto) 29.9 %; Mean Corpuscular Hemoglobin 32.7 pg (25.0-34.0); Mean Corpuscular Hgb Conc 34.3 g/dL (32.0-36.0); Mean Corpuscular Volume 95.2 fL (80.0-100.0); Mean Platelet Volume 11.1 fL (9.4-12.3); Monocytes # (auto) 0.46 K/uL (0.24-0.82); Monocytes % (auto) 10.2 %; Neutrophils # (auto) 2.66 K/uL (1.4-6.5); Neutrophils % (auto) 59.1 %; Platelet Count 192 K/uL (130-400); RDW Coefficient of Variation 10.8 % (11.5-14.5); Red Blood Count 3.12 M/uL (3.93-5.22); White Blood Count 4.51 K/ul (4.8-10.8)
[2021-11-21 08:19] LABS: BUN Creatinine Ratio 12.5 (10-20); Calcium 7.7 mg/dl (8.5-10.1); Phosphorus 3.4 mg/dl (2.5-4.9); Potassium 3.5 mmol/L (3.5-5.1)
--- NOTE | 2021-11-21 09:18 | Pain Management Consultation ---
Date of Consultation November 21, 2021 Assessment & Plan (1) SMAS (superior mesenteric artery syndrome): (2) Intestinal motility disorder: (3) Elevated lipase: (4) Ileostomy status: (5) Colitis: (6) Chronic malnutrition: (7) On total parenteral nutrition (TPN): (8) Gastrostomy tube in place: (9) Nausea: (10) Sphincter of Oddi spasm: (11) Jejunal intussusception: (12) Pancreatitis: (13) Intractable abdominal pain: (14) Endometriosis: (15) Intussusception: (16) Uses feeding tube: I did offer to perform trigger point injections today to see if it may provide some relief of the periumbilical pain she is experiencing. I have made her and her mother aware of the risks of bleeding, infection, injury to bowel, infiltration into ostomy and g-tube given close proximity to those structures and she is understanding and would like to proceed with the procedure. If the procedure is helpful then it could be repeated typically every 90 days. Please refer to procedure note for further details. Nothing further to offer if abdominal trigger points are not effective. TRIGGER POINT INJECTION Diagnosis: Myofascial Pain Injection Site: Rectus abdominis left 2 sites at left 4 and 5 o'clock of umbilicus Performed By: Lupe Rubio PA-C Prior to starting, the diagnosis and the procedure was reviewed with the patient in detail. Possible risks and complications including infection, bleeding, damage to surrounding structures and increased pain were discussed. Alternative therapies were also reviewed. All questions were answered and they agreed to proceed. Informed consent was obtained. Allergies and medication list was reviewed. The patient was placed in sitting position. Immediately prior to starting the procedure, a time out was conducted with the staff and the patient where the patient was identified, proposed procedure was verified, consent was reviewed and the proper site for the planned procedure was identified. Patient was not given any intravenous sedation and constant verbal contact was maintained throughout the procedure. On examination, no signs of skin breakdown or infection were noted at the injection site. The site was cleansed with CloraPrep followed by alcohol. Sterile technique was used throughout the procedure. After identifying skeletal landmarks, 5 cc's was injected into each site with a solution containing 7 cc of 0.5% Bupivacaine MPF, 60 mg Toradol, and 40 mg Kenalog. Aspiration was negative. Hemostasis noted. Patient tolerated the procedure uneventfully without complications. History of Present Illness Reason for Consultation: Intractable abdominal pain Attending Physician: Ramses Layne DO History of Present Illness This is a 31 year old female with ileostomy status post perforated bowel from colonoscopy, g-tube status, history of superior mesenteric artery syndrome, adrenal insufficiency, TPN dependency, history of intussusception, GI tract motility disorder, and history of endometriosis status post hysterectomy. She is currently in the process of getting on the transplant list with [facility] for intestinal transplant. She came into the emergency department on 11/19/2021 for recurrent abdominal pain. The pain is located along the periumbilical region and described as a deep aching. There is associated nausea . Lipase was found to be elevated which has since normalized. She denies any radicular symptoms to the pain. No changes in bowel pattern. Case discussed with Dr. Mariama Pearson Pain Assessment Full Body Front + Back: 1. Allergies Allergy/AdvReac Type Severity Reaction Status Date / Time morphine Allergy Severe Severe Verified 11/20/21 12:01 abdominal Pain, sphincter of oddi spasms amoxicillin Allergy Intermediate RASH Verified 11/19/21 17:31 cefazolin Allergy Intermediate rash Verified 11/19/21 17:31 Cephalosporins Allergy Intermediate HIVES Verified 11/19/21 17:31 clavulanic acid Allergy Intermediate HIVES Verified 11/19/21 17:31 iron [From Venofer] Allergy Intermediate Muscle Pain Verified 11/19/21 17:31 Penicillins Allergy Intermediate HIVES Verified 11/19/21 17:31 prochlorperazine Allergy Intermediate HIVES Verified 11/19/21 17:31 promethazine Allergy Intermediate hives, Verified 11/19/21 17:31 throat swelling sulfamethoxazole Allergy Intermediate RASH Verified 11/19/21 17:31 sumatriptan Allergy Intermediate RASH Verified 11/19/21 17:31 trimethoprim Allergy Intermediate RASH Verified 11/19/21 17:31 metoclopramide AdvReac Severe anxiety/ Verified 11/19/21 17:31 jittery diphenhydramine AdvReac Intermediate Tachycardia, Verified 11/19/21 17:31 Severe Anxiety WITH IV ONLY erythromycin base AdvReac Intermediate GI SYMPTOMS Verified 11/19/21 17:31 citalopram [From Celexa] AdvReac Unknown CAN'T Verified 11/19/21 17:31 REMEMBER MULTIVITAMIN Allergy Intermediate SEE COMMENT Uncoded 11/19/21 17:31 Home Medications Medication Instructions Recorded Confirmed Type dicyclomine 10 mg capsule 10 - 20 mg PO Q6H PRN 03/07/18 11/19/21 History hyoscyamine sulfate 0.125 mg 0.125 mg SUBLINGUAL Q4H PRN 03/07/18 11/19/21 History sublingual tablet (Levsin/SL) pantoprazole 40 mg tablet,delayed 40 mg PO QAM 09/08/19 11/19/21 History release (Protonix) famotidine 40 mg tablet 20 mg PO BID 11/28/19 11/19/21 History lorazepam 2 mg/mL injection 0.5 mg BUCCAL QID PRN 12/05/19 11/19/21 History solution (Ativan) hydrocortisone 10 mg tablet 10 - 15 mg PO BID 02/07/20 11/19/21 History ondansetron 4 mg disintegrating 4 mg TRANSLINGUAL Q6H PRN 02/07/20 11/19/21 History tablet trimethobenzamide 300 mg capsule 300 mg PO Q6H PRN 02/07/20 11/19/21 History fexofenadine 180 mg tablet 180 mg PO PM 10/09/20 11/19/21 History gabapentin 250 mg/5 mL oral 300 mg PO TID 10/09/20 11/19/21 History solution fludrocortisone 0.1 mg tablet 0.1 - 0.2 mg PO UD 12/12/20 11/19/21 History acetaminophen 500 mg tablet 1,000 mg PO Q6H PRN 06/13/21 11/19/21 History (Tylenol Extra Strength) ascorbic acid (vitamin C) 500 mg 0 mg PO PM 06/13/21 11/19/21 History chewable tablet (Vitamin C) coenzyme Q10 100 mg capsule 0 mg PO PM 06/13/21 11/19/21 History (CoQ-10) multivitamin with minerals-folic 2 tab PO PM 06/13/21 11/19/21 History acid 200 mcg chewable tablet (Multivitamin Gummies) turmeric 400 mg capsule 0 mg PO PM 06/13/21 11/19/21 History vitamin B complex 1 tab PO PM 06/13/21 11/19/21 History hydrocodone 7.5 mg-acetaminophen 10 ml PO Q6H PRN #120 ml 11/12/21 11/19/21 Rx 325 mg/15 mL oral solution hydrocodone 7.5 mg-acetaminophen 10 ml FEEDING TUBE Q6H PRN 11/13/21 11/19/21 History 500 mg/15 mL oral solution Patient History Medical History Asthma Chronic migraine Endometriosis has had 3 surgeries for this. Last surgery [address] Hemorrhagic cystitis Hypotension Intussusception PICC (peripherally inserted central catheter) in place TPN SMAS (superior mesenteric artery syndrome) History of SMAS Sphincter of Oddi dysfunction DECREASED GI MOTILITY Uses feeding tube gastroparesis and decreased GI motility can not tolerate feeding and uses TPN UTI (urinary tract infection) Surgical History H/O adenoidectomy H/O laparoscopy H/O lumpectomy right breast 2011 History of appendectomy History of bowel resection Part of duodenum removed due to necrosis; done at [facility] 2019 History of hysterectomy 09/27/19 History of removal of Port-a-Cath 10/13/[address] Geiger, [facility], due to bacteremia/sepsis. History of vascular access device 2017 Hx of colonoscopy during procedure perforated small bowel 10/27/2019 at [facility], subsequent repair of duodenal area. Hx of ileostomy Hx of tonsillectomy S/P cholecystectomy 2015 S/P wrist surgery right Family History Father Hyperlipidemia Other No significant family history Social History Smoking Status: Never smoker Second Hand Exposure: No; Hx Alcohol Use: No Hx Substance Use: No Preferred Language: Turkmen Communication Ability: Effective Visual Impairment: No Limitations Hearing Ability: Normal Die Cast Engineer Required: No Beliefs That Will Affect Care: None marital status: Single Current Living Situation: Family Current Living Situation Comment: Lives with family. current occupational status: unemployed current occupation: completed 4-year degree at [employer] How many Children do You have: 0 Other Information That Helps Us Care for You: No Feels Safe at Home: Yes Safety Concerns: Feels Safe At This Time Sexual Activity Comment: not sexually active Assistive Devices: None Physical Exam Physical Exam: GENERAL: This is a 31 year old female that is accompanied by her mother. Patient does not appear in any acute distress. HEAD/FACE: Normocephalic and atraumatic. EYES: No drainage or conjunctival injection. ENT: Nose without bleeding or discharge. Oral mucosa moist. NECK: Full ROM without apparent pain. No swelling or masses noted. RESPIRATORY: Patient with unlabored breathing. No signs of respiratory distress. CHEST/AXILLA: Chest movement symmetrical. No deformities noted. CARDIOVASCULAR: Patients heart rate is regular, with pulse rate as documented. No edema noted. ABDOMEN/GI: No distension. Ostomy and g-tube in place. There is focal tenderness 5 o'clock position of the umbilicus with palpation trigger point. No epigastric or suprapubic tenderness. No rebound tenderness of guarding. BACK: Moves without difficulty SKIN: [place], warm and dry. No rash noted. MS/EXTREMITY: No swelling, no deformities. Moving extremities appropriately. NEURO: Alert and appears oriented. Speech is fluent. Cranial Nerves are grossly intact. PSYCH: Alert, pleasant, affect is calm
[2021-11-21] MEDS: FAMOTIDINE 20 MG in SYRINGE 3 ML IV SCH ×2 (09:32→21:13)
[2021-11-21] MEDS: HEPARIN SOD 5,000 UNIT/0.5 ML VIAL SQ SCH ×2 (09:34→21:15)
[2021-11-21] MEDS: GABAPENTIN 250 MG/5 ML 470 ML BTL PO SCH ×3 (09:34→21:17)
[2021-11-21] MEDS: FLUDROCORTISONE ACETATE 0.1 MG TAB PO SCH ×2 (09:34→21:16)
[2021-11-21] MEDS: PANTOprazole 40 MG TAB PO SCH (09:35)
[2021-11-21] MEDS ORDERED: TPN/PPN CONSULT PHARMACY PRN (12:59)
[2021-11-21] MEDS ORDERED: HYDROmorphone INJ 0.5 MG/0.5 ML SYR IV PRN (14:49)
[2021-11-21] MEDS ORDERED: ALBUTEROL HFA 8 GM INHALER INH PRN (17:01)
[2021-11-21] MEDS ORDERED: NALOXONE HCL 0.4 MG/1 ML VIAL/CARP IV PRN (18:23)
[2021-11-21] MEDS ORDERED: HYDROmorphone Bolus from PCA IV STA (18:23)
--- NOTE | 2021-11-21 19:18 | Billing Data ---
Date of Service November 21, 2021 Coding Level of Care Code 84608 Subseq Hosp Care Lvl 3
[2021-11-21] MEDS: HYDROmorphone PCA 30 MG/30 ML IV PRN (19:29)
[2021-11-21] MEDS: SODIUM CHLORIDE 0.9% 1000ML 1,000 ML IV SCH (19:31)
[2021-11-21] MEDS ORDERED: [UNRECOGNIZED DRUG - REMARK] ONE (21:00)
[2021-11-21] MEDS ORDERED: [UNRECOGNIZED DRUG - OTHER] IV SCH (21:00)
[2021-11-21] MEDS ORDERED: DEXTROSE 10% 1,000 ML IV PRN (21:00)
[2021-11-21] MEDS ORDERED: AMINO ACID 8% IV SCH (21:00)
[2021-11-21] MEDS ORDERED: CENTRAL TPN IV SCH (21:00)
[2021-11-21] MEDS: FEXOFENADINE HCL 180 MG TAB PO SCH (21:16)
[2021-11-21] MEDS: CEROVITE ADV FORMULA TAB PO SCH (21:16)
[2021-11-21] MEDS: ACETAMINOPHEN 500 MG TAB PO SCH (21:22)
[2021-11-22] MEDS ORDERED: CLINOLIPID 20% IV FAT EMULSION 200 ML IV SCH
[2021-11-22] MEDS: LORazepam 0.5 MG in SYRINGE 0.25 ML IV PRN ×4 (00:05→22:14)
[2021-11-22] MEDS: HYDROCORTISONE SOD 25 MG in SYRINGE 0 ML IV SCH ×4 (00:07→23:53)
[2021-11-22] MEDS: ONDANSETRON INJ 2 MG/ML 2 ML VIAL IV PRN ×2 (02:24→18:21)
--- NOTE | 2021-11-22 06:42 | Hospitalist Progress Note ---
Date of Service November 22, 2021 Assessment & Plan (1) Abdominal pain, diffuse: (2) Anemia: (3) Uses feeding tube: (4) Elevated lipase: (5) Transaminitis: (6) Adrenal insufficiency: (7) On total parenteral nutrition (TPN): Plan: Pilar is a 31-year-old female with past medical history of ileostomy status, g-tube status, prior h/o SMA syndrome, adrenal insufficiency, TPN dependency, h/o intussusception, GI tract motility disorder, prior h/o endometriosis s/p h ysterectomy, and chronic headaches coming in for abdominal pain and nausea and vomiting. Abdominal Pain: -Lipase 144 on admission however down to 29 on repeat. -Liver enzymes within normal limits. -CT A/P w/o evidence of acute intra-abdominal or intrapelvic abnormality. -MRCP w/o biliary ductal dilation or choledocholithiasis -C Diff gene positive however toxin negative - along with slowdown in diarrhea less likely C diff infection -More likely abdominal adhesions and motility issues causing pain. -Negative MRCP and repeat lipase WNL reassuring to r/o pancreas as cause. -GI consulted: -Suspect acute exacerbation of patient's chronic issues. Hold feeds until symptoms improve. -Can pain management consultation. -Pain management consulted for trigger point injection treatment - two trigger point injections. -Continue PPI/H2 kasia per home regimen. -NPO, will restart TPN tonight. -Tylenol scheduled 1000mg q8h -Patient with frequent need for Dilaudid, discussed trying ORDNANCE ARTIFICER Dilaudid for a few days to get over pain exacerbation -Ordered ORDNANCE ARTIFICER: 1mg Dilaudid to start. -0.25mg, Q15min. -Will reassess pain tomorrow morning. -Pt may benefit from oral breakthrough pain medication when dispo planning for discharge. -Continue to monitor symptoms through acute exacerbation. Nausea/Vomiting: -As above, most likely related to acute exacerbation of chronic issues (motility, adhesions). -PRN Zofran and Ativan for nausea. May be 2/2 pain. Anemia: -Hgb 11.9 upon admission, 10.2 this morning. -Drop may be related to rectal bleeding that has since stopped. May need colonoscopy outpatient. -AM CBC, transfuse if <7.0 Rectal bleeding/Pain: -Pt with history of rectal pain lasting 1-1.5hrs culminating in bleeding/discharge. -Up-to-date with evidence in 1 trial for decreased rectal spasm/pain duration in patient's taking inhaled Beta2 agonist -Consider Albuterol PRN for proctalgia fugax in times of rectal pain/spasm - may shorten duration. Elevated Lipase: -Lipase 144 on admission, down to 29 on repeat. -Resolved. On TPN: -Patient on TPN at home usually. -Was able to tolerate PO intake after last discharge. -Restart TPN today given low likelihood of pancreatic involvement as above. -TPN without lipids ordered for tonight due to increase in pain when started with lipids. 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 -Patient is candidate for small bowel transplant at [facility] and going through the process for approval. -Continue supportive management as above. Adrenal insufficiency: -Given 50mg IV one time dose of hydrocortisone on admission. -Continue home Florinef. Hypomagnesemia: -Magnesium 1.2 on admission. -Replenished with 3 bags of Mg. DVT: Heparin 5000 BID due to immobility. F/E/N/GI: NPO while giving bowel rest, may restart TPN tomorrow depending on how patient feels. Repeat BMP and Mg Code Status: Full code Dispo: Med/Surg. Admission and Anticipated Discharge Date Admission Date: November 21, 2021 Supervising Physician Co-Signing Physician Notes I personally examined the patient and verified all solorzano points of history and exam, discussed case, and agree with decision making with Dr Douglas Pain much better controlledand with it so is the nausea. Feeling more relaxed. Is, of course, still on ORDNANCE ARTIFICER. Vitals noted, relaxed and in no distress. HEENT normocephalic atraumatic mucous membranes moist. Breathing unlabored no accessory muscle use good effort. Skin shows no rashes no pallor or icterus. Neuro without focal deficits. Abdominal pain, nausea vomitingseems to be multifactorial, motility and prior abdominal surgery/scarring almost certainly playing large roles. Given that these are unfortunately chronic very severe problemsright now the only major management for this portion acutely appears to be symptom control and time. Fortunately ORDNANCE ARTIFICER has helped with this quite a bitand for the time being we will continue this, with hopefully being able to wean it off over the next 1 to 2 days. Consider Nucynta if insurance coverage allows. She is pursuing a small bowel transplanthopefully this will be helpful, but obviously we need to help her as best as possible until then. Allow time for trigger point injections to hopefully help with what may be a portion of her pain that is a somatic visceral reflex. Discussed GI/pain psychology she is checking with [facility] as she does believe they have this there. Yesterday discussed albuterol for rectal spasms. Rectal bleeding and acute blood loss anemiahas now stopped. No indication for urgent scope. Follow closely. Probably should have a scope as an outpatient if bleeding does not continue. follow. Chronic malnutritioncontinue TPN Otherwise as above Subjective Patient seen at bedside this morning, no overnight events. Patient states that her pain is better controlled and she had a better night last night than the night before. Nausea still present but decreased/manageable as it is mostly attributable to the pain. Review of Systems Constitutional: as per Subjective / HPI Physical Exam Constitutional: WD/WN, vitals as above Eyes: PERRL, conjunctivae normal, anicteric sclerae Respiratory: normal respiratory effort, lungs clear to auscultation Cardiovascular: RRR, no murmur, no edema Gastrointestinal (Abdomen): Ileostomy bag and g-tube in place without surrounding erythema or edema. BS+, non-distended. Mild tenderness to palpation at midline abdominal scar, most tender at center of scar. Results & Data Results & Data ([facility]) Vital Signs (Past 12 Hours) Vital Signs Temp Pulse Resp BP Pulse Ox 11/22/21 04:48 62 11 L 95 11/22/21 03:52 36.7 C 85 14 104/69 98 11/21/21 23:26 37 C 71 16 108/71 98 11/21/21 22:18 37.2 C 64 16 103/67 98 11/21/21 20:45 36.8 C 82 16 104/70 98 11/21/21 19:52 36.8 C 70 11 L 110/72 98 Resident Activity Tracking Resident Involvement: Resident Care Provided Care Provided: Adult [facility]
[2021-11-22] MEDS ORDERED: STOP CLINOLIPID SCH (08:00)
[2021-11-22] MEDS: ACETAMINOPHEN 500 MG TAB PO SCH ×3 (08:21→20:59)
[2021-11-22] MEDS: FLUDROCORTISONE ACETATE 0.1 MG TAB PO SCH ×2 (08:22→20:59)
[2021-11-22] MEDS: HEPARIN SOD 5,000 UNIT/0.5 ML VIAL SQ SCH ×2 (08:22→21:00)
[2021-11-22] MEDS: PANTOprazole 40 MG TAB PO SCH (08:24)
[2021-11-22] MEDS: GABAPENTIN 250 MG/5 ML 470 ML BTL PO SCH ×3 (09:04→20:59)
[2021-11-22] MEDS: FAMOTIDINE 20 MG in SYRINGE 3 ML IV SCH ×2 (09:05→20:59)
--- NOTE | 2021-11-22 09:19 | Pharmacy Report ---
PHA: Parenteral Nutrition Con - Date of Service November 22, 2021 - Scope Pharmacy was consulted on 11/21 to manage parenteral nutrition orders for this patient. - Subjective The patient is currently on day 2 of central parenteral nutrition - Objective Height: 5 ft 6 in Weight: 46.6 kg Diet: NPO Intake & Output (24hrs):: Intake & Output 11/20/21 11/21/21 11/22/21 11/23/21 06:59 06:59 06:59 06:59 Intake Total 1000 / 1000 3320.000 / 3320.000 1539.734 / 1539.734 Output Total 1100 / 1100 1400 / 1400 Balance 1000 / 1000 2220.000 / 2220.000 139.734 / 139.734 Weight 46.6 kg 46.6 kg Nutrition Assessment:: Please refer to the Notes section of the EMR for the most recent machinist set up note. - Plan Pharmacy consulted for TPN management on 11/21 - Patient on chronic central TPN at home. Patient agreeable to use pharmacy supply for TPN while admitted. Patient manages her TPN via [facility]. See formulation below. [facility] TPN bags: TPN 2:1 solution 1260 ml, AA 70 gm, CHO 225 g IV daily over 18 hours - running from [id number] each day with 1 hour up/down rate Additives: NaAcetate 5.0 meq, KAcetate 125 meq, Kphos 20 mM, CaGluc 5 meq, NaCl 145 meq, Mgsulfate 24 meq, tralement 1 ml Lipids 50 gms/250 ml daily over 8 hours - she gets from [id number] with 1 hour up/down rate Started TPN 11/21 with similar additives to home TPN and to last admission. Lipids added to formulation yesterday - discussed with provider and would like to skip today for lipids 11/22. Formulation for TPN today 11/22 is below Macronutrients Amino acids 77 grams/day Dextrose 134 grams/day Lipids - none Micronutrients Sodium chloride 60 mEq Sodium acetate 60 mEq Potassium phosphate 21 mMol Potassium acetate 80 mEq Magnesium sulfate 12.18 mEq Calcium gluconate 9.3 mEq Additional additives: thiamine 100 mg Total volume 1085 mL to be infused over 18 hrs will provide 764 kcal/day Labs, as indicated, will be ordered per protocol Pharmacy will continue to follow and adjust parenteral nutrition orders on a daily basis. Thank you for allowing us to participate in the care of this patient.
[2021-11-22 09:47] LABS: Anion Gap 2 (3-11); BUN Creatinine Ratio 19.7 (10-20); Blood Urea Nitrogen 13 mg/dl (6-23); Calcium 8.2 mg/dl (8.5-10.1); Carbon Dioxide 32 mmol/L (21-32); Chloride 107 mmol/L (98-107); Creatinine Clr Calc Pharmacy 92.5 ml/min; Est GFR (African American) 138.4 ml/min; Est GFR (Non-African American) 119.4 ml/min; Glucose 141 mg/dl (70-99(Fasting)); Phosphorus 2.1 mg/dl (2.5-4.9); Sodium 141 mmol/L (136-145)
[2021-11-22] MEDS ORDERED: SODIUM PHOSPHATE 9 MMOL in DEXTROSE 5% 250 ML IV ONE (10:30)
--- NOTE | 2021-11-22 11:38 | Billing Data ---
Date of Service November 22, 2021 Coding Level of Care Code 93136 Subseq Hosp Care Lvl 3
[2021-11-22] MEDS: [UNRECOGNIZED DRUG - REMARK] SCH (14:59)
[2021-11-22] MEDS: HEPARIN 100 UNIT/ML 5ML FLUSH FLUSH PRN (15:00)
[2021-11-22] MEDS: FEXOFENADINE HCL 180 MG TAB PO SCH (20:59)
[2021-11-22] MEDS ORDERED: AMINO ACID 8% IV SCH (21:00)
[2021-11-22] MEDS ORDERED: CENTRAL TPN IV SCH (21:00)
[2021-11-22] MEDS ORDERED: [UNRECOGNIZED DRUG - OTHER] IV SCH (21:00)
[2021-11-22] MEDS: CEROVITE ADV FORMULA TAB PO SCH (21:25)
[2021-11-23] MEDS: LORazepam 0.5 MG in SYRINGE 0.25 ML IV PRN ×3 (02:12→22:37)
--- NOTE | 2021-11-23 07:56 | Hospitalist Progress Note ---
Date of Service November 23, 2021 Assessment & Plan (1) Abdominal pain, diffuse: (2) Anemia: (3) Uses feeding tube: (4) Elevated lipase: (5) Transaminitis: (6) Adrenal insufficiency: (7) On total parenteral nutrition (TPN): Plan: Pilar is a 31-year-old female with past medical history of ileostomy status, g-tube status, prior h/o SMA syndrome, adrenal insufficiency, TPN dependency, h/o intussusception, GI tract motility disorder, prior h/o endometriosis s/p h ysterectomy, and chronic headaches coming in for abdominal pain and nausea and vomiting. Abdominal Pain: -Lipase 144 on admission however down to 29 on repeat. -Liver enzymes within normal limits. -CT A/P w/o evidence of acute intra-abdominal or intrapelvic abnormality. -MRCP w/o biliary ductal dilation or choledocholithiasis -C Diff gene positive however toxin negative - along with slowdown in diarrhea less likely C diff infection -More likely abdominal adhesions and motility issues causing pain. -Negative MRCP and repeat lipase WNL reassuring to r/o pancreas as cause. -GI consulted: -Suspect acute exacerbation of patient's chronic issues. Hold feeds until symptoms improve. -Pain management consulted for trigger point injection treatment - two trigger point injections. -Continue PPI/H2 kasia per home regimen. -Tylenol scheduled 1000mg q8h -Patient with frequent need for Dilaudid, discussed trying POSITIVE PRINTER OPERATOR Dilaudid for a few days to get over pain exacerbation -Ordered POSITIVE PRINTER OPERATOR: 1mg Dilaudid to start. -0.25mg, Q15min. -Will reassess pain tomorrow morning. -Pt may benefit from oral breakthrough pain medication when dispo planning for discharge. -Continue to monitor symptoms through acute exacerbation. Nausea/Vomiting: -As above, most likely related to acute exacerbation of chronic issues (motility, adhesions). -PRN Zofran and Ativan for nausea. May be 2/2 pain. Anemia: -Hgb 11.9 upon admission, 10.2 07/07 -Drop may be related to rectal bleeding that has since stopped. May need colonoscopy outpatient. -AM CBC, transfuse if <7.0 Rectal bleeding/Pain: -Pt with history of rectal pain lasting 1-1.5hrs culminating in bleeding/discharge. -Up-to-date with evidence in 1 trial for decreased rectal spasm/pain duration in patient's taking inhaled Beta2 agonist -Consider Albuterol PRN for proctalgia fugax in times of rectal pain/spasm - may shorten duration. -Consider topical CCB or Nitroglycerin for cessation of rectal pain/spasm. Elevated Lipase: -Lipase 144 on admission, down to 29 on repeat. -Resolved. On TPN: -Patient on TPN at home usually. -Was able to tolerate PO intake after last discharge. -Restarted TPN given low likelihood of pancreatic involvement as above. -TPN without lipids ordered for tonight due to increase in pain when started with lipids. -Can trial adding lipids back in tomorrow night. 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 -Patient is candidate for small bowel transplant at [facility] and going through the process for approval. -Continue supportive management as above. Adrenal insufficiency: -Given 50mg IV one time dose of hydrocortisone on admission. -Continue home Florinef. Hypomagnesemia: -Magnesium 1.2 on admission. -Replenished with 3 bags of Mg. DVT: Heparin 5000 BID due to immobility. F/E/N/GI: Trial liquid diet, advance as tolerated. Code Status: Full code Dispo: Med/Surg. Admission and Anticipated Discharge Date Admission Date: November 21, 2021 Supervising Physician Co-Signing Physician Notes Patient seen and examined, chart reviewed, case discussed with Dr. Pichardo I agree with the assessment and plan as above except as otherwise noted Seen at bedside, MM moist, breathing unlabored, abdomen soft. No acute distress. Vision/hearing intact. Pilar is a 31-year-old female with chronic and complex multifactorial abdominal pain with dysmotility and concern for adhesions and has a history of ileostomy, chronic TPN use. Was admitted with acute worsening of pain and rectal spasms. Required escalating pain control and began to get relief on POSITIVE PRINTER OPERATOR. CT without acute abnormalities. She reports that she feels her pain is doing much better on the POSITIVE PRINTER OPERATOR, continues to be improved today. Has not had any rectal spasm and has not used the albuterol for this, but has available to use. Multifactorial abdominal pain, but appears gradually improving. Okay to wean to pain tolerable with goal of transitioning to Nucynta as outpatient. Continues to require POSITIVE PRINTER OPERATOR for pain. Continued on chronic TPN. No further bleeding. Subjective Patient seen at the bedside this morning saying she was able to keep the pain manageable overnight. Nausea was also cut down thanks to the pain management. Patient inquiring about possibly starting oral intake/liquid diet. Review of Systems Constitutional: as per Subjective / HPI Physical Exam Constitutional: WD/WN, vitals as above Eyes: PERRL, conjunctivae normal, anicteric sclerae Respiratory: normal respiratory effort, lungs clear to auscultation Cardiovascular: RRR, no murmur, no edema Results & Data Results & Data ([facility]) Vital Signs (Past 12 Hours) Vital Signs Temp Pulse Resp BP Pulse Ox 11/23/21 07:27 36.5 C 76 14 111/77 100 11/23/21 04:02 36.8 C 93 H 14 107/76 98 11/22/21 23:56 36.8 C 90 16 105/71 97
[2021-11-23] MEDS: HEPARIN SOD 5,000 UNIT/0.5 ML VIAL SQ SCH ×2 (08:34→21:06)
[2021-11-23] MEDS: HYDROCORTISONE SOD 25 MG in SYRINGE 0 ML IV SCH ×3 (08:34→23:16)
[2021-11-23] MEDS: ONDANSETRON INJ 2 MG/ML 2 ML VIAL IV PRN ×2 (08:35→20:58)
[2021-11-23 08:39] LABS: BUN Creatinine Ratio 21.7 (10-20); Calcium 8.7 mg/dl (8.5-10.1); Creatinine Clr Calc Pharmacy 101.8 ml/min; Est GFR (African American) 142.8 ml/min; Est GFR (Non-African American) 123.2 ml/min; Magnesium 2.1 mg/dl (1.7-2.4); Phosphorus 2.9 mg/dl (2.5-4.9); Potassium 3.8 mmol/L (3.5-5.1)
[2021-11-23] MEDS: GABAPENTIN 250 MG/5 ML 470 ML BTL PO SCH ×3 (08:52→21:04)
[2021-11-23] MEDS: PANTOprazole 40 MG TAB PO SCH (08:52)
[2021-11-23] MEDS: ACETAMINOPHEN 500 MG TAB PO SCH ×3 (08:52→21:05)
[2021-11-23] MEDS: FLUDROCORTISONE ACETATE 0.1 MG TAB PO SCH ×2 (08:53→21:04)
[2021-11-23] MEDS: FAMOTIDINE 20 MG in SYRINGE 3 ML IV SCH ×2 (08:56→21:01)
[2021-11-23] MEDS: [UNRECOGNIZED DRUG - REMARK] SCH (15:00)
[2021-11-23] MEDS: HEPARIN 100 UNIT/ML 5ML FLUSH FLUSH PRN (15:05)
[2021-11-23] MEDS: SODIUM CHLORIDE 0.9% 1000ML 1,000 ML IV SCH ×2 (17:17→17:37)
[2021-11-23] MEDS ORDERED: [UNRECOGNIZED DRUG - OTHER] IV SCH (21:00)
[2021-11-23] MEDS ORDERED: CENTRAL TPN IV SCH (21:00)
[2021-11-23] MEDS ORDERED: AMINO ACID 8% IV SCH (21:00)
[2021-11-23] MEDS: CEROVITE ADV FORMULA TAB PO SCH (21:05)
[2021-11-23] MEDS: FEXOFENADINE HCL 180 MG TAB PO SCH (21:05)
[2021-11-24] MEDS: LORazepam 0.5 MG in SYRINGE 0.25 ML IV PRN ×4 (02:47→22:07)
[2021-11-24] MEDS: ONDANSETRON INJ 2 MG/ML 2 ML VIAL IV PRN ×2 (06:11→21:20)
[2021-11-24 06:21] LABS: Basophils # (auto) 0.02 K/uL (0-0.2); Basophils % (auto) 0.2 %; Hemoglobin 10.5 g/dl (12.0-16.0); Immature Granulocytes # (auto) 0.04 K/uL (0.00-0.02); Immature Granulocytes % (auto) 0.4 %; Lymphocytes # (auto) 1.08 K/uL (1.2-3.4); Lymphocytes % (auto) 11.6 %; Mean Corpuscular Hemoglobin 32.5 pg (25.0-34.0); Mean Corpuscular Hgb Conc 33.9 g/dL (32.0-36.0); Mean Platelet Volume 11.5 fL (9.4-12.3); Monocytes # (auto) 0.76 K/uL (0.24-0.82); Monocytes % (auto) 8.1 %; Neutrophils # (auto) 7.45 K/uL (1.4-6.5); Neutrophils % (auto) 79.7 %; Platelet Count 194 K/uL (130-400); RDW Standard Deviation 38.6 fL (36.4-46.3); Red Blood Count 3.23 M/uL (3.93-5.22); White Blood Count 9.35 K/ul (4.8-10.8)
[2021-11-24 06:37] LABS: BUN Creatinine Ratio 25.9 (10-20); Calcium 8.1 mg/dl (8.5-10.1); Creatinine Clr Calc Pharmacy 113.1 ml/min; Est GFR (African American) 147.8 ml/min; Est GFR (Non-African American) 127.5 ml/min; Potassium 3.8 mmol/L (3.5-5.1)
--- NOTE | 2021-11-24 07:38 | Hospitalist Progress Note ---
Date of Service November 24, 2021 Assessment & Plan (1) Abdominal pain, diffuse: (2) Anemia: (3) Uses feeding tube: (4) Elevated lipase: (5) Transaminitis: (6) Adrenal insufficiency: (7) On total parenteral nutrition (TPN): Plan: Pilar is a 31-year-old female with past medical history of ileostomy status, g-tube status, prior h/o SMA syndrome, adrenal insufficiency, TPN dependency, h/o intussusception, GI tract motility disorder, prior h/o endometriosis s/p hysterectomy, and chronic headaches coming in for abdominal pain and nausea and vomiting. Abdominal Pain: -Lipase 144 on admission however down to 29 on repeat. -Liver enzymes within normal limits. -CT A/P w/o evidence of acute intra-abdominal or intrapelvic abnormality. -MRCP w/o biliary ductal dilation or choledocholithiasis -C Diff gene positive however toxin negative - along with slowdown in diarrhea less likely C diff infection -More likely abdominal adhesions and motility issues causing pain. -Negative MRCP and repeat lipase WNL reassuring to r/o pancreas as cause. -GI consulted: -Suspect acute exacerbation of patient's chronic issues. Hold feeds until symptoms improve. -Pain management consulted for trigger point injection treatment - two trigger point injections. -Continue PPI/H2 kasia per home regimen. -Tylenol scheduled 1000mg q8h -Patient with frequent need for Dilaudid, discussed trying LEASING COORDINATOR Dilaudid for a few days to get over pain exacerbation -Ordered LEASING COORDINATOR: 1mg Dilaudid to start. -0.25mg -> 0.20mg today. Q15min. -Will reassess pain tomorrow morning. -Pt may benefit from oral breakthrough pain medication when dispo planning for d ischarge. -Discussed possibly Nucynta for breakthrough pain at home - can trial here, talk to case management about insurance coverage. -Continue to monitor symptoms through acute exacerbation. Nausea/Vomiting: -As above, most likely related to acute exacerbation of chronic issues (motility, adhesions). -PRN Zofran and Ativan for nausea. May be 2/2 pain. Anemia: -Hgb 11.9 upon admission, 10.2 07/07 -Drop may be related to rectal bleeding that has since stopped. May need colonoscopy outpatient. -AM CBC, transfuse if <7.0 Rectal bleeding/Pain: -Pt with history of rectal pain lasting 1-1.5hrs culminating in bleeding/discharge. -Up-to-date with evidence in 1 trial for decreased rectal spasm/pain duration in patient's taking inhaled Beta2 agonist -Consider Albuterol PRN for proctalgia fugax in times of rectal pain/spasm - may shorten duration. -Consider topical CCB or Nitroglycerin for cessation of rectal pain/spasm. Elevated Lipase: -Lipase 144 on admission, down to 29 on repeat. -Resolved. On TPN: -Patient on TPN at home usually. -Was able to tolerate PO intake after last discharge. -Restarted TPN given low likelihood of pancreatic involvement as above. -TPN without lipids ordered for tonight due to increase in pain when started with lipids. -Can trial adding lipids back in tomorrow night. 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 -Patient is candidate for small bowel transplant at [facility] and going through the process for approval. -Continue supportive management as above. Adrenal insufficiency: -Given 50mg IV one time dose of hydrocortisone on admission. -Continue home Florinef. Hypomagnesemia: -Magnesium 1.2 on admission. -Replenished with 3 bags of Mg. DVT: Heparin 5000 BID due to immobility. F/E/N/GI: Trial liquid diet, advance as tolerated. Code Status: Full code Dispo: Med/Surg. Admission and Anticipated Discharge Date Admission Date: November 21, 2021 Supervising Physician Co-Signing Physician Notes Patient seen and examined, chart reviewed, case discussed with Dr. Pichardo I agree with the assessment and plan as above except as otherwise noted Seen at bedside, MM moist, breathing unlabored, abdomen soft. No acute distress. Vision/hearing intact. Seen at the bedside with patient's mother present Pilar is a 31-year-old female with chronic and complex multifactorial abdominal pain with dysmotility and concern for adhesions and has a history of ileostomy, chronic TPN use. Was admitted with acute worsening of pain and rectal spasms. Required escalating pain control and began to get relief on LEASING COORDINATOR. CT without acute abnormalities. Pain continues to be well controlled, discomfortable with LEASING COORDINATOR taper. Per review has been using 4-5 pushes per for 4 hours, has not been over pushing or using every 15 minutes as ordered decreased from 0.25mg to 0.2 mg every 15 interval. Some feeling like she was almost about to get a rectal spasm, but nothing that actually persisted or became severe enough to need albuterol. Continuing LEASING COORDINATOR wean with a goal of pain tolerable and potentially transitioning to Nucynta as outpatient. Continued on chronic TPN. If pain remains well controlled will add back lipids to this likely tomorrow. No further bleeding. Subjective Patient seen at the bedside this morning stating that she feels about the same as yesterday. Nausea is about the same as well but slightly exacerbated by intake of iced tea/liquid diet. Patient has only tried ice tea thus far, says she would like to try eating broth later this afternoon. Patient denies fevers, chills, shortness of breath, chest pain. Patient still having the abdominal pain about the same intensity as yesterday, however patient would like to try titrating the LEASING COORDINATOR pump down. Review of Systems Constitutional: as per Subjective / HPI Physical Exam Constitutional: WD/WN, vitals as above Eyes: PERRL, conjunctivae normal, anicteric sclerae Respiratory: normal respiratory effort, lungs clear to auscultation Cardiovascular: RRR, no murmur, no edema Results & Data Results & Data ([facility]) Vital Signs (Past 12 Hours) Vital Signs Temp Pulse Resp BP Pulse Ox 11/24/21 04:03 37.3 C 60 16 105/76 99 11/23/21 23:57 37.3 C 56 L 16 111/77 98 Resident Activity Tracking Resident Involvement: Resident Care Provided Care Provided: Adult [facility]
[2021-11-24] MEDS: HYDROCORTISONE SOD 25 MG in SYRINGE 0 ML IV SCH ×3 (08:19→23:19)
[2021-11-24] MEDS: HEPARIN SOD 5,000 UNIT/0.5 ML VIAL SQ SCH ×2 (08:22→21:02)
[2021-11-24] MEDS: ACETAMINOPHEN 500 MG TAB PO SCH ×3 (08:22→21:00)
[2021-11-24] MEDS: FAMOTIDINE 20 MG in SYRINGE 3 ML IV SCH ×2 (08:22→20:57)
[2021-11-24] MEDS: GABAPENTIN 250 MG/5 ML 470 ML BTL PO SCH ×3 (08:22→21:20)
[2021-11-24] MEDS: PANTOprazole 40 MG TAB PO SCH (08:23)
[2021-11-24] MEDS: FLUDROCORTISONE ACETATE 0.1 MG TAB PO SCH ×2 (08:23→21:01)
[2021-11-24] MEDS: [UNRECOGNIZED DRUG - REMARK] SCH (15:15)
[2021-11-24] MEDS: HEPARIN 100 UNIT/ML 5ML FLUSH FLUSH PRN (15:20)
[2021-11-24] MEDS: SODIUM CHLORIDE 0.9% 1000ML 1,000 ML IV SCH (18:59)
[2021-11-24] MEDS: HYOSCYAMINE SULFATE 0.125 MG TAB SL PRN (20:51)
[2021-11-24] MEDS: FEXOFENADINE HCL 180 MG TAB PO SCH (21:00)
[2021-11-24] MEDS ORDERED: [UNRECOGNIZED DRUG - OTHER] IV SCH (21:00)
[2021-11-24] MEDS: CEROVITE ADV FORMULA TAB PO SCH (21:00)
[2021-11-24] MEDS ORDERED: CENTRAL TPN IV SCH (21:00)
[2021-11-24] MEDS ORDERED: AMINO ACID 8% IV SCH (21:00)
[2021-11-25] MEDS: LORazepam 0.5 MG in SYRINGE 0.25 ML IV PRN ×4 (02:22→22:58)
--- NOTE | 2021-11-25 07:32 | Hospitalist Progress Note ---
Date of Service November 25, 2021 Assessment & Plan (1) Abdominal pain, diffuse: (2) Anemia: (3) Uses feeding tube: (4) Elevated lipase: (5) Transaminitis: (6) Adrenal insufficiency: (7) On total parenteral nutrition (TPN): Plan: Ms. Garcia is a 31 y/o female with PMHx of ileostomy status, g-tube status, prior h/o SMA syndrome, adrenal insufficiency, TPN dependency, h/o intussusception, GI tract motility disorder, prior h/o endometriosis s/p hysterectomy, and chronic headaches who presented with abdominal pain, nausea, and vomiting and continues to have pain and nausea. #Abdominal Pain: Patient presented with nausea, vomiting, and abdominal pain. She has a complex medical history with multiple abdominal surgeries. Lipase 144 on admission however down to 29 on repeat. MRCP w/o biliary ductal dilation or choledocholithiasis. Reassuring that the pancreas is not the cause. Liver enzymes within normal limits. CT A/P w/o evidence of acute intra-abdominal or intrapelvic abnormality. C. diff gene positive however toxin negative - along with slowdown in diarrhea less likely C dif infection. More likely abdominal adhesions and motility issues causing pain. GI consulted: Suspect acute exacerbation of patient's chronic issues. Hold feeds until symptoms improve. Pain management was consulted for trigger point injection treatment. She was given two periumbilical trigger point injections. Patient was requiring Dilaudid every 2 hours initially, so she was started on a AUTO EMISSIONS TECHNICIAN Dilaudid to help get through this acute exacerbation. On 0.20 mg today Q15 minutes. Can decrease by 0.05 mg. Reassess daily. On TPN: Patient on TPN at home usually. She was able to tolerate PO intake after last discharge. Restarted TPN given low likelihood of pancreatic involvement as above. Patient had previous worsening of abdominal pain when receiving TPN with lipids. Per pharmacy people on hide cleaner TPN can go 3-7 days without lipids. Reach out to dietary for guidance on when to add back lipids. [] reassess pain control [] consider oral breakthrough pain med - discussed [facility], can trial in house, talk to case management about coverage [] continue to monitor symptoms [] continue TPN [] continue PPI/HR kasia per home regimen [] Tylenol scheduled 1000 mg Q8 #Nausea/Vomiting: As above, most likely related to acute exacerbation of chronic issues (motility, adhesions). [] PRN Zofran and Ativan #Anemia: Hgb 11.9 upon admission, 10.2 11/21. Drop may be related to rectal bleeding that has since stopped. May need colonoscopy outpatient. [] AM CBC, transfuse if <7.0 #Rectal bleeding/Pain - resolved Patient recently had rectal pain lasting 1-1.5hrs culminating in bleeding/discharge. Up-to-date with evidence in 1 trial for decreased rectal spasm/pain duration in patient's taking inhaled Beta2 agonist. Consider Albuterol PRN for proctalgia fugax in times of rectal pain/spasm - may shorten duration. Consider topical CCB or Nitroglycerin for cessation of rectal pain/spasm. #Elevated Lipase: resolved Lipase 144 on admission, down to 29 on repeat. Intestinal dysmotility: Long history of intestinal dysmotility, bowel perforation at the duodenum requiring ileostomy. Patient is candidate for small bowel transplant at [facility] and going through the process for approval. [] Continue supportive management as above. Adrenal insufficiency: Given 50mg IV one time dose of hydrocortisone on admission. [] Continue home Florinef. Hypomagnesemia: Magnesium 1.2 on admission. Replenished with 3 bags of Mg. [] replete electrolytes as needed DVT: Heparin 5000 BID due to immobility. F/E/N/GI: Trial liquid diet, advance as tolerated. Code Status: Full code Dispo: Med/Surg. Admission and Anticipated Discharge Date Admission Date: November 21, 2021 Supervising Physician Co-Signing Physician Notes Resident Physician Supervision Note: I independently interviewed and examined the patient and verified the solorzano history and physical, reviewed labs and image studies and agree with resident Dr. Gonzalez findings and care plan. Subjective Patient seen at bedside this AM where she is sitting uncomfortably with a damp wash cloth on her forehead. The patient notes feeling extremely nauseous with continued abdominal pain - patient given Zofran at 08:00 with no relief, Ativan given at 09:00 - helped. No emesis. She has not had a bowel movement due to low input. The patient is attempting to increase PO intake, but drinking fluids makes her pain worse. She notes having an incident last evening with severe pain and cramping of her sphincter of Oddi relieved by Levsin. She denies any fevers, chills, or pain anywhere else. Review of Systems Constitutional: as per Subjective / HPI Physical Exam Constitutional: WD/WN, vitals as above Eyes: PERRL, conjunctivae normal, anicteric sclerae Respiratory: normal respiratory effort, lungs clear to auscultation Cardiovascular: RRR, no murmur, no edema Gastrointestinal (Abdomen): Inspection/Auscultation: abdomen normal to inspection and normal bowel sounds Percussion/Palpation: + abdomen tender and abdomen soft Results & Data Results & Data ([facility]) Vital Signs (Past 12 Hours) Vital Signs Temp Pulse Resp BP Pulse Ox 11/25/21 04:29 37.1 C 57 L 12 103/68 99 11/25/21 00:00 37.1 C 79 12 110/69 97 Laboratory Results 11/25/21 11/25/21 11/25/21 Range/Units 09:30 06:11 00:01 Sodium 142 (136-145) mmol/L Potassium 3.8 (3.5-5.1) mmol/L Chloride 107 (98-107) mmol/L Carbon Dioxide 30 (21-32) mmol/L Anion Gap 5 (3-11) BUN 17 (6-23) mg/dl Creatinine 0.57 L (0.6-1.2) mg/dl Est Cr Clr Drug Dosing 114.5 ml/min Est GFR ( Amer) 145.2 ml/min Est GFR (Non-Af Amer) 125.3 ml/min BUN/Creatinine Ratio 29.8 H (10-20) Glucose 138 H (70-99(Fasting)) mg/dl POC Glucose 126 H 110 H (70-99) mg/dl Calcium 8.5 (8.5-10.1) mg/dl Phosphorus 3.7 (2.5-4.9) mg/dl Magnesium 2.1 (1.7-2.4) mg/dl 11/24/21 Range/Units 18:01 Sodium (136-145) mmol/L Potassium (3.5-5.1) mmol/L Chloride (98-107) mmol/L Carbon Dioxide (21-32) mmol/L Anion Gap (3-11) BUN (6-23) mg/dl Creatinine (0.6-1.2) mg/dl Est Cr Clr Drug Dosing ml/min Est GFR ( Amer) ml/min Est GFR (Non-Af Amer) ml/min BUN/Creatinine Ratio (10-20) Glucose (70-99(Fasting)) mg/dl POC Glucose 107 H (70-99) mg/dl Calcium (8.5-10.1) mg/dl Phosphorus (2.5-4.9) mg/dl Magnesium (1.7-2.4) mg/dl Resident Activity Tracking Resident Involvement: Resident Care Provided Care Provided: Adult [facility]
[2021-11-25] MEDS: ONDANSETRON INJ 2 MG/ML 2 ML VIAL IV PRN ×3 (07:48→21:54)
[2021-11-25] MEDS: HYDROCORTISONE SOD 25 MG in SYRINGE 0 ML IV SCH ×3 (07:50→23:57)
[2021-11-25] MEDS: PANTOprazole 40 MG TAB PO SCH (07:51)
[2021-11-25] MEDS: ACETAMINOPHEN 500 MG TAB PO SCH ×3 (07:51→20:45)
[2021-11-25] MEDS: FLUDROCORTISONE ACETATE 0.1 MG TAB PO SCH ×2 (07:51→20:45)
[2021-11-25] MEDS: GABAPENTIN 250 MG/5 ML 470 ML BTL PO SCH ×4 (07:52→20:46)
[2021-11-25] MEDS: FAMOTIDINE 20 MG in SYRINGE 3 ML IV SCH ×2 (07:52→20:46)
[2021-11-25] MEDS: HEPARIN SOD 5,000 UNIT/0.5 ML VIAL SQ SCH ×2 (07:52→20:49)
[2021-11-25 10:21] LABS: BUN Creatinine Ratio 29.8 (10-20); Calcium 8.5 mg/dl (8.5-10.1); Creatinine Clr Calc Pharmacy 114.5 ml/min; Est GFR (African American) 145.2 ml/min; Est GFR (Non-African American) 125.3 ml/min; Magnesium 2.1 mg/dl (1.7-2.4); Phosphorus 3.7 mg/dl (2.5-4.9); Potassium 3.8 mmol/L (3.5-5.1)
[2021-11-25] MEDS: HYDROmorphone PCA 30 MG/30 ML IV PRN (11:32)
[2021-11-25] MEDS: SODIUM CHLORIDE 0.9% 1000ML 1,000 ML IV SCH (14:26)
[2021-11-25] MEDS: [UNRECOGNIZED DRUG - REMARK] SCH (15:13)
[2021-11-25] MEDS: FEXOFENADINE HCL 180 MG TAB PO SCH (20:44)
[2021-11-25] MEDS: CEROVITE ADV FORMULA TAB PO SCH (20:45)
[2021-11-25] MEDS ORDERED: [UNRECOGNIZED DRUG - OTHER] IV SCH (21:00)
[2021-11-25] MEDS ORDERED: AMINO ACID 8% IV SCH (21:00)
[2021-11-25] MEDS ORDERED: CENTRAL TPN IV SCH (21:00)
[2021-11-25] MEDS: HYOSCYAMINE SULFATE 0.125 MG TAB SL PRN (21:54)
[2021-11-26] MEDS: LORazepam 0.5 MG in SYRINGE 0.25 ML IV PRN ×4 (03:19→21:11)
[2021-11-26] MEDS: HYOSCYAMINE SULFATE 0.125 MG TAB SL PRN ×2 (03:39→22:20)
--- NOTE | 2021-11-26 07:11 | Hospitalist Progress Note ---
Date of Service November 26, 2021 Assessment & Plan (1) Abdominal pain, diffuse: (2) Anemia: (3) Uses feeding tube: (4) Elevated lipase: (5) Transaminitis: (6) Adrenal insufficiency: (7) On total parenteral nutrition (TPN): Plan: Ms. Garcia is a 31 y/o female with PMHx of ileostomy status, g-tube status, prior h/o SMA syndrome, adrenal insufficiency, TPN dependency, h/o intussusception, GI tract motility disorder, prior h/o endometriosis s/p hysterectomy, and chronic headaches who presented with abdominal pain, nausea, and vomiting and continues to have pain and nausea. #Abdominal Pain: Patient presented with nausea, vomiting, and abdominal pain. She has a complex medical history with multiple abdominal surgeries. Lipase 144 on admission however down to 29 on repeat. MRCP w/o biliary ductal dilation or choledocholithiasis. Reassuring that the pancreas is not the cause. Liver enzymes within normal limits. CT A/P w/o evidence of acute intra-abdominal or intrapelvic abnormality. C. diff gene positive however toxin negative - along with slowdown in diarrhea less likely c. dif infection. More likely abdominal adhesions and motility issues causing pain. GI consulted: Suspect acute exacerbation of patient's chronic issues. Held feeds until symptoms improved. Pain management was consulted for trigger point injection treatment. She was given two periumbilical trigger point injections. Patient was requiring Dilaudid every 2 hours initially, so she was started on a STOCKLAYER Dilaudid to help get through this acute exacerbation. On 0.15 mg today Q15 minutes. Can decrease by 0.05 mg. Reassess daily. In regards to the "intestinal swelling" there weren't any signs of infection - erythema, purulent discharge, warmth. Recommended watch and wait On TPN: Patient on TPN at home usually. She was able to tolerate PO intake after last discharge. Restarted TPN given low likelihood of pancreatic involvement as above. Patient had previous worsening of abdominal pain when receiving TPN with lipids. Per pharmacy people on mcfp TPN can go 3-7 days without lipids. Reach out to dietary for guidance on when to add back lipids - per dietary min 100g lipids a week; rec two TPN sessions with 50g lipids on Tuesdays and Saturdays. [] reassess pain control - STOCKLAYER decreased to 0.15 mg. [] consider oral breakthrough pain med - discussed Nucynta, can trial in house, talk to case management about coverage [] continue to monitor symptoms [] continue TPN - lipids 2x a week at night 50 g for a total of 100g a week at minimum (Tuesdays and Saturdays) [] continue PPI/HR kasia per home regimen [] Tylenol scheduled 1000 mg Q8 [] TRGs to check lipid levels [] monitor for signs of infection at tube site #Nausea/Vomiting: As above, most likely related to acute exacerbation of chronic issues (motility, adhesions). [] PRN Zofran and Ativan #Anemia: Hgb 11.9 upon admission, 10.9 11/26. Drop may be related to rectal bleeding that has since stopped. May need colonoscopy outpatient. [] AM CBC, transfuse if <7.0 #Rectal bleeding/Pain - resolved Patient recently had rectal pain lasting 1-1.5hrs culminating in bleeding/discharge. Up-to-date with evidence in 1 trial for decreased rectal spasm/pain duration in patient's taking inhaled Beta2 agonist. Consider Albuterol PRN for proctalgia fugax in times of rectal pain/spasm - may shorten duration. Consider topical CCB or Nitroglycerin for cessation of rectal pain/spasm. #Elevated Lipase: resolved Lipase 144 on admission, down to 29 on repeat. Intestinal dysmotility: Long history of intestinal dysmotility, bowel perforation at the duodenum requir ing ileostomy. Patient is candidate for small bowel transplant at [facility] and going through the process for approval. [] Continue supportive management as above. Adrenal insufficiency: Given 50mg IV one time dose of hydrocortisone on admission. [] Continue home Florinef. Hypomagnesemia: Magnesium 1.2 on admission. Replenished with 3 bags of Mg. [] replete electrolytes as needed DVT: Heparin 5000 BID due to immobility. F/E/N/GI: Trial liquid diet, advance as tolerated. Code Status: Full code Dispo: Med/Surg. Admission and Anticipated Discharge Date Admission Date: November 21, 2021 Supervising Physician Co-Signing Physician Notes Resident Physician Supervision Note: I independently interviewed and examined the patient and verified the solorzano history and physical, reviewed labs and image studies and agree with resident Dr. Gonzalez findings and care plan. Subjective Patient seen at bedside this AM. Patient is doing okay today. She had a rough night again with sphincter cramping, then relieved by Levsin. The patient reports continued nausea and pain, slightly improved from yesterday. She has not had a BM, but they did change her bag last evening. She noticed at that time that her "intestines looked swollen". She states that the stoma looked fine, but she noticed some swelling. She denies any f/c/sob/cp. Review of Systems Constitutional: as per Subjective / HPI Physical Exam Constitutional: WD/WN, vitals as above Eyes: PERRL, conjunctivae normal, anicteric sclerae Respiratory: normal respiratory effort, lungs clear to auscultation Cardiovascular: RRR, no murmur, no edema Gastrointestinal (Abdomen): Inspection/Auscultation: abdomen normal to inspection and normal bowel sounds Percussion/Palpation: + abdomen tender and abdomen soft Results & Data Results & Data ([facility]) Vital Signs (Past 12 Hours) Vital Signs Temp Pulse Resp BP Pulse Ox 11/26/21 03:28 36.8 C 60 10 L 112/75 100 11/25/21 23:52 37.0 C 61 12 117/76 98 Laboratory Results 11/26/21 11/26/21 11/26/21 Range/Units 07:55 07:55 05:56 WBC 8.62 (4.8-10.8) K/ul RBC 3.34 L (3.93-5.22) M/uL Hgb 10.9 L (12.0-16.0) g/dl Hct 32.0 L (34.1-44.9) % MCV 95.8 (80.0-100.0) fL MCH 32.6 (25.0-34.0) pg MCHC 34.1 (32.0-36.0) g/dL RDW Std Deviation 39.1 (36.4-46.3) fL RDW Coeff of Tim 11.4 L (11.5-14.5) % Plt Count 206 (130-400) K/uL MPV 11.8 (9.4-12.3) fL Sodium 142 (136-145) mmol/L Potassium 3.8 (3.5-5.1) mmol/L Chloride 107 (98-107) mmol/L Carbon Dioxide 31 (21-32) mmol/L Anion Gap 4 (3-11) BUN 18 (6-23) mg/dl Creatinine 0.64 (0.6-1.2) mg/dl Est Cr Clr Drug Dosing 99.5 ml/min Est GFR ( Amer) 139.8 ml/min Est GFR (Non-Af Amer) 120.6 ml/min BUN/Creatinine Ratio 28.1 H (10-20) Glucose 126 H (70-99(Fasting)) mg/dl POC Glucose 141 H (70-99) mg/dl Calcium 8.5 (8.5-10.1) mg/dl Phosphorus 4.1 (2.5-4.9) mg/dl Magnesium 2.1 (1.7-2.4) mg/dl Total Bilirubin 0.3 (0.2-1.0) mg/dl AST 33 (13-39) U/L ALT 94 H (7-52) U/L Alkaline Phosphatase 44 (34-104) U/L Total Protein 5.4 L (6.0-8.3) gm/dl Albumin 3.4 (3.4-5.0) gm/dl Globulin 2.0 L (2.5-4.0) gm/dl Albumin/Globulin Ratio 1.7 (0.9-2) 11/25/21 11/25/21 11/25/21 Range/Units 23:56 18:01 09:30 WBC (4.8-10.8) K/ul RBC (3.93-5.22) M/uL Hgb (12.0-16.0) g/dl Hct (34.1-44.9) % MCV (80.0-100.0) fL MCH (25.0-34.0) pg MCHC (32.0-36.0) g/dL RDW Std Deviation (36.4-46.3) fL RDW Coeff of Tim (11.5-14.5) % Plt Count (130-400) K/uL MPV (9.4-12.3) fL Sodium 142 (136-145) mmol/L Potassium 3.8 (3.5-5.1) mmol/L Chloride 107 (98-107) mmol/L Carbon Dioxide 30 (21-32) mmol/L Anion Gap 5 (3-11) BUN 17 (6-23) mg/dl Creatinine 0.57 L (0.6-1.2) mg/dl Est Cr Clr Drug Dosing 114.5 ml/min Est GFR ( Amer) 145.2 ml/min Est GFR (Non-Af Amer) 125.3 ml/min BUN/Creatinine Ratio 29.8 H (10-20) Glucose 138 H (70-99(Fasting)) mg/dl POC Glucose 116 H 113 H (70-99) mg/dl Calcium 8.5 (8.5-10.1) mg/dl Phosphorus 3.7 (2.5-4.9) mg/dl Magnesium 2.1 (1.7-2.4) mg/dl Total Bilirubin (0.2-1.0) mg/dl AST (13-39) U/L ALT (7-52) U/L Alkaline Phosphatase (34-104) U/L Total Protein (6.0-8.3) gm/dl Albumin (3.4-5.0) gm/dl Globulin (2.5-4.0) gm/dl Albumin/Globulin Ratio (0.9-2) Diagnostic Findings No new imaging. Resident Activity Tracking Resident Involvement: Resident Care Provided Care Provided: Adult [facility]
[2021-11-26] MEDS: ONDANSETRON INJ 2 MG/ML 2 ML VIAL IV PRN ×2 (07:48→13:43)
[2021-11-26] MEDS: ACETAMINOPHEN 500 MG TAB PO SCH ×3 (08:33→21:22)
[2021-11-26] MEDS: PANTOprazole 40 MG TAB PO SCH (08:34)
[2021-11-26] MEDS: HEPARIN SOD 5,000 UNIT/0.5 ML VIAL SQ SCH ×2 (08:35→21:22)
[2021-11-26 08:37] LABS: Hemoglobin 10.9 g/dl (12.0-16.0); Mean Corpuscular Hemoglobin 32.6 pg (25.0-34.0); Mean Corpuscular Hgb Conc 34.1 g/dL (32.0-36.0); Mean Corpuscular Volume 95.8 fL (80.0-100.0); Mean Platelet Volume 11.8 fL (9.4-12.3); Platelet Count 206 K/uL (130-400); RDW Coefficient of Variation 11.4 % (11.5-14.5); RDW Standard Deviation 39.1 fL (36.4-46.3); Red Blood Count 3.34 M/uL (3.93-5.22); White Blood Count 8.62 K/ul (4.8-10.8)
[2021-11-26] MEDS: GABAPENTIN 250 MG/5 ML 470 ML BTL PO SCH ×3 (08:46→21:16)
[2021-11-26] MEDS: FAMOTIDINE 20 MG in SYRINGE 3 ML IV SCH ×2 (08:47→21:07)
[2021-11-26] MEDS: FLUDROCORTISONE ACETATE 0.1 MG TAB PO SCH ×2 (08:48→21:22)
[2021-11-26 09:17] LABS: Albumin Globulin Ratio 1.7 (0.9-2); Albumin Level 3.4 gm/dl (3.4-5.0); BUN Creatinine Ratio 28.1 (10-20); Bilirubin,Total 0.3 mg/dl (0.2-1.0); Calcium 8.5 mg/dl (8.5-10.1); Creatinine Clr Calc Pharmacy 99.5 ml/min; Est GFR (African American) 139.8 ml/min; Est GFR (Non-African American) 120.6 ml/min; Magnesium 2.1 mg/dl (1.7-2.4); Phosphorus 4.1 mg/dl (2.5-4.9); Potassium 3.8 mmol/L (3.5-5.1); Total Protein 5.4 gm/dl (6.0-8.3)
[2021-11-26] MEDS: HYDROCORTISONE SOD 25 MG in SYRINGE 0 ML IV SCH ×2 (09:29→17:18)
[2021-11-26] MEDS: HYDROmorphone PCA 30 MG/30 ML IV PRN (09:44)
[2021-11-26] MEDS: [UNRECOGNIZED DRUG - REMARK] SCH (15:24)
[2021-11-26] MEDS ORDERED: CENTRAL TPN IV SCH (21:00)
[2021-11-26] MEDS ORDERED: AMINO ACID 8% IV SCH (21:00)
[2021-11-26] MEDS ORDERED: [UNRECOGNIZED DRUG - OTHER] IV SCH (21:00)
[2021-11-26] MEDS: SODIUM CHLORIDE 0.9% 1000ML 1,000 ML IV SCH (21:02)
[2021-11-26] MEDS: FEXOFENADINE HCL 180 MG TAB PO SCH (21:22)
[2021-11-26] MEDS: CEROVITE ADV FORMULA TAB PO SCH (21:23)
[2021-11-27] MEDS ORDERED: CLINOLIPID 20% IV FAT EMULSION 250 ML IV SCH
[2021-11-27] MEDS: HYDROCORTISONE SOD 25 MG in SYRINGE 0 ML IV SCH ×3 (00:04→21:54)
[2021-11-27] MEDS: LORazepam 0.5 MG in SYRINGE 0.25 ML IV PRN ×4 (01:08→22:30)
[2021-11-27] MEDS ORDERED: HYDROmorphone INJ 0.5 MG/0.5 ML SYR ONE (02:40)
[2021-11-27] MEDS: ONDANSETRON INJ 2 MG/ML 2 ML VIAL IV PRN ×2 (07:38→18:35)
[2021-11-27] MEDS ORDERED: STOP CLINOLIPID SCH (08:00)
[2021-11-27 08:19] LABS: Hematocrit (blood only) 31.3 % (34.1-44.9); Hemoglobin 10.4 g/dl (12.0-16.0); Mean Corpuscular Hemoglobin 31.2 pg (25.0-34.0); Mean Corpuscular Hgb Conc 33.2 g/dL (32.0-36.0); Mean Platelet Volume 11.5 fL (9.4-12.3); Platelet Count 203 K/uL (130-400); RDW Coefficient of Variation 11.6 % (11.5-14.5); Red Blood Count 3.33 M/uL (3.93-5.22); White Blood Count 8.84 K/ul (4.8-10.8)
--- NOTE | 2021-11-27 08:39 | Hospitalist Progress Note ---
Date of Service November 27, 2021 Assessment & Plan (1) Abdominal pain, diffuse: (2) Anemia: (3) Uses feeding tube: (4) Elevated lipase: (5) Transaminitis: (6) Adrenal insufficiency: (7) On total parenteral nutrition (TPN): Plan Ms. Garcia is a 31 y/o female with PMHx of ileostomy status, g-tube status, prior h/o SMA syndrome, adrenal insufficiency, TPN dependency, h/o intussusception, GI tract motility disorder, prior h/o endometriosis s/p hysterectomy, and chronic headaches who presented with abdominal pain, nausea, and vomiting and continues to have pain and nausea. #Abdominal Pain: Patient presented with nausea, vomiting, and abdominal pain. She has a complex medical history with multiple abdominal surgeries. Lipase 144 on admission however down to 29 on repeat. MRCP w/o biliary ductal dilation or choledocholithiasis. Reassuring that the pancreas is not the cause. Liver enzymes within normal limits. CT A/P w/o evidence of acute intra-abdominal or intrapelvic abnormality. C. diff gene positive however toxin negative - along with slowdown in diarrhea less likely c. dif infection. More likely abdominal adhesions and motility issues causing pain. GI consulted: Suspect acute exacerbation of patient's chronic issues. Held feeds until symptoms improved. Pain management was consulted for trigger point injection treatment. She was given two periumbilical trigger point injections. Patient was requiring Dilaudid every 2 hours initially, so she was started on a WAREHOUSE DELIVERY MANAGER Dilaudid to help get through this acute exacerbation. On 0.15 mg today Q15 minutes. Can decrease by 0.05 mg. Reassess daily. In regards to the "intestinal swelling" there weren't any signs of infection - erythema, purulent discharge, warmth. Recommended watch and wait On TPN: Patient on TPN at home usually. She was able to tolerate PO intake after last discharge. Restarted TPN given low likelihood of pancreatic involvement as above. Patient had previous worsening of abdominal pain when receiving TPN with lipids. Per pharmacy people on intermediate TPN can go 3-7 days without lipids. Reach out to dietary for guidance on when to add back lipids - per dietary min 100g lipids a week; rec two TPN sessions with 50g lipids on Tuesdays and Saturdays. Patient experienced significant pain last evening when having TPN with lipids. Lipids were stopped and TPN was continued. Patient agreeable to trying again. Mother will check if they have a home SMOF that could be used. Dietary updated. [] reassess pain control - WAREHOUSE DELIVERY MANAGER d/c, IV pain meds ordered PRN [] consider oral breakthrough pain med - discussed toro Canales trial in house, talk to case management about coverage [] continue to monitor symptoms [] continue TPN - lipids 2x a week at night 50 g for a total of 100g a week at minimum (Tuesdays and Saturdays) [] continue PPI/HR kasia per home regimen [] Tylenol scheduled 1000 mg Q8 [] TRGs to check lipid levels [] monitor for signs of infection at tube site #Nausea/Vomiting: As above, most likely related to acute exacerbation of chronic issues (motility, adhesions). [] PRN Zofran and Ativan #Anemia: Hgb 11.9 upon admission, 10.9 11/26. Drop may be related to rectal bleeding that has since stopped. May need colonoscopy outpatient. [] AM CBC, transfuse if <7.0 #Rectal bleeding/Pain - resolved Patient recently had rectal pain lasting 1-1.5hrs culminating in bleeding/discharge. Up-to-date with evidence in 1 trial for decreased rectal spasm/pain duration in patient's taking inhaled Beta2 agonist. Consider Albuterol PRN for proctalgia fugax in times of rectal pain/spasm - may shorten duration. Consider topical CCB or Nitroglycerin for cessation of rectal pain/spasm. #Elevated Lipase: resolved Lipase 144 on admission, down to 29 on repeat. Intestinal dysmotility: Long history of intestinal dysmotility, bowel perforation at the duodenum requiring ileostomy. Patient is candidate for small bowel transplant at [facility] and going through the process for approval. [] Continue supportive management as above. Adrenal insufficiency: Patient on 20 mg IV hydrocortisone TID in addition to home Florinef. Taper off hydrocortisone [11/27- 25 mg BID, 11/28- 25 mg BID, 11/29- 25 mg QD, 11/30 d/c hydrocortisone]. [] taper off hydrocortisone [] Continue home Florinef. Hypomagnesemia: Magnesium 1.2 on admission. Replenished with 3 bags of Mg. [] replete electrolytes as needed DVT: Heparin 5000 BID due to immobility. F/E/N/GI: Trial liquid diet, advance as tolerated. Code Status: Full code Dispo: Med/Surg. Admission and Anticipated Discharge Date Admission Date: November 21, 2021 Supervising Physician Co-Signing Physician Notes Patient seen and examined with PGY-1 Dr. Gonzalze. Agree with history, exam findings, assessment and plan of care. In brief, Pilar is a 31 year old female with hx of ileostomy, prior SMA syndrome, adrenal insufficiency admitted with abdominal pain, nausea, and vomiting. Overnight, had a sensation of her insides twisting during lipid infusion which was subsequently stopped. Some nausea, dry heaving. But is willing to try lipids from home tonight. She is hopeful to get rid of the WAREHOUSE DELIVERY MANAGER today if her pain continues to improve. Does report that it is really hard to rest overnight with vital signs, etc. VS and nursing notes reviewed. Non-toxic appearing. Mucus membranes are moist. Heart with regular rate and rhythm. Abdomen is soft, non-tender. Labs and imaging reviewed. 1. Abdominal pain. Exacerbation of motility issue. Appreciate GI recommendations. Pain management: stop dilaudid WAREHOUSE DELIVERY MANAGER and switch to IV pushes. 2. TPN dependent. Restarted TPN and will try lipid solution from home tonight. Appreciate nutrition recs. 3. Nausea, vomiting. PRN Zofran and Ativan. 4. Rectal bleeding, pain. Resolved. Consider topical CCB or nitro if recurrent. 5. Dysmotility issues. In process of being evaluated for small bowel transplant at [facility]. 6. Adrenal insufficiency. Received hydrocortisone on admission and has been getting IV hydrocortisone since admission. Quick taper off. Continue home florinef. Dispo: pending clinical improvement. Spoke with nursing to limit interruptions overnight (ie vital signs, blood draws, weights). Subjective Patient seen at bedside this AM. She had a difficult night and was unable to tolerate the TPN with lipids, so lipids were discontinued. Patient willing to try again as she is uncertain if the pain was due to a flare of her intussusception or the lipids. She reports continued nausea and pain. The patient would like to wean off the WAREHOUSE DELIVERY MANAGER. Mother was present at bedside and is willing to go get their home SMOF to try instead of SO which the hospital uses. Review of Systems Review of Systems: See Subjective/HPI Physical Exam Constitutional: WD/WN, vitals as above Eyes: PERRL, conjunctivae normal, anicteric sclerae Respiratory: normal respiratory effort, lungs clear to auscultation Cardiovascular: RRR, no murmur, no edema Gastrointestinal (Abdomen): Inspection/Auscultation: abdomen normal to inspection and normal bowel sounds Percussion/Palpation: + abdomen tender and abdomen soft Results & Data Results & Data ([facility]) Vital Signs (Past 12 Hours) Vital Signs Temp Pulse Resp BP Pulse Ox O2 Del Method 11/27/21 08:15 37.0 C 65 16 103/70 99 Room Air 11/27/21 03:30 36.7 C 58 L 14 105/72 96 Room Air 11/26/21 23:52 36.8 C 56 L 16 110/75 97 Room Air Laboratory Results 11/27/21 11/27/21 11/27/21 Range/Units 17:30 11:30 07:39 WBC 8.84 (4.8-10.8) K/ul RBC 3.33 L (3.93-5.22) M/uL Hgb 10.4 L (12.0-16.0) g/dl Hct 31.3 L (34.1-44.9) % MCV 94.0 (80.0-100.0) fL MCH 31.2 (25.0-34.0) pg MCHC 33.2 (32.0-36.0) g/dL RDW Std Deviation 39.0 (36.4-46.3) fL RDW Coeff of Tim 11.6 (11.5-14.5) % Plt Count 203 (130-400) K/uL MPV 11.5 (9.4-12.3) fL Sodium (136-145) mmol/L Potassium (3.5-5.1) mmol/L Chloride (98-107) mmol/L Carbon Dioxide (21-32) mmol/L Anion Gap (3-11) BUN (6-23) mg/dl Creatinine (0.6-1.2) mg/dl Est Cr Clr Drug Dosing ml/min Est GFR ( Amer) ml/min Est GFR (Non-Af Amer) ml/min BUN/Creatinine Ratio (10-20) Glucose (70-99(Fasting)) mg/dl POC Glucose 106 H 115 H (70-99) mg/dl Calcium (8.5-10.1) mg/dl Phosphorus (2.5-4.9) mg/dl Magnesium (1.7-2.4) mg/dl 11/27/21 11/27/21 11/26/21 Range/Units 07:39 06:03 23:48 WBC (4.8-10.8) K/ul RBC (3.93-5.22) M/uL Hgb (12.0-16.0) g/dl Hct (34.1-44.9) % MCV (80.0-100.0) fL MCH (25.0-34.0) pg MCHC (32.0-36.0) g/dL RDW Std Deviation (36.4-46.3) fL RDW Coeff of Tim (11.5-14.5) % Plt Count (130-400) K/uL MPV (9.4-12.3) fL Sodium 140 (136-145) mmol/L Potassium 3.8 (3.5-5.1) mmol/L Chloride 106 (98-107) mmol/L Carbon Dioxide 32 (21-32) mmol/L Anion Gap 2 L (3-11) BUN 18 (6-23) mg/dl Creatinine 0.58 L (0.6-1.2) mg/dl Est Cr Clr Drug Dosing 109.4 ml/min Est GFR ( Amer) 144.4 ml/min Est GFR (Non-Af Amer) 124.6 ml/min BUN/Creatinine Ratio 31.0 H (10-20) Glucose 132 H (70-99(Fasting)) mg/dl POC Glucose 137 H 122 H (70-99) mg/dl Calcium 8.3 L (8.5-10.1) mg/dl Phosphorus 3.9 (2.5-4.9) mg/dl Magnesium 2.2 (1.7-2.4) mg/dl 11/26/21 Range/Units 18:03 WBC (4.8-10.8) K/ul RBC (3.93-5.22) M/uL Hgb (12.0-16.0) g/dl Hct (34.1-44.9) % MCV (80.0-100.0) fL MCH (25.0-34.0) pg MCHC (32.0-36.0) g/dL RDW Std Deviation (36.4-46.3) fL RDW Coeff of Tim (11.5-14.5) % Plt Count (130-400) K/uL MPV (9.4-12.3) fL Sodium (136-145) mmol/L Potassium (3.5-5.1) mmol/L Chloride (98-107) mmol/L Carbon Dioxide (21-32) mmol/L Anion Gap (3-11) BUN (6-23) mg/dl Creatinine (0.6-1.2) mg/dl Est Cr Clr Drug Dosing ml/min Est GFR ( Amer) ml/min Est GFR (Non-Af Amer) ml/min BUN/Creatinine Ratio (10-20) Glucose (70-99(Fasting)) mg/dl POC Glucose 110 H (70-99) mg/dl Calcium (8.5-10.1) mg/dl Phosphorus (2.5-4.9) mg/dl Magnesium (1.7-2.4) mg/dl Diagnostic Findings No new imaging. Resident Activity Tracking Resident Involvement: Resident Care Provided Care Provided: Adult [facility] Medicine
[2021-11-27 08:51] LABS: Calcium 8.3 mg/dl (8.5-10.1); Creatinine Clr Calc Pharmacy 109.4 ml/min; Est GFR (African American) 144.4 ml/min; Est GFR (Non-African American) 124.6 ml/min; Magnesium 2.2 mg/dl (1.7-2.4); Phosphorus 3.9 mg/dl (2.5-4.9); Potassium 3.8 mmol/L (3.5-5.1)
[2021-11-27] MEDS: FAMOTIDINE 20 MG in SYRINGE 3 ML IV SCH ×2 (08:56→21:15)
[2021-11-27] MEDS: HEPARIN SOD 5,000 UNIT/0.5 ML VIAL SQ SCH ×2 (08:59→21:17)
[2021-11-27] MEDS: GABAPENTIN 250 MG/5 ML 470 ML BTL PO SCH ×3 (08:59→22:29)
[2021-11-27] MEDS: ACETAMINOPHEN 500 MG TAB PO SCH ×3 (09:01→21:14)
[2021-11-27] MEDS: PANTOprazole 40 MG TAB PO SCH (09:04)
[2021-11-27] MEDS: FLUDROCORTISONE ACETATE 0.1 MG TAB PO SCH ×2 (09:05→21:16)
[2021-11-27] MEDS: [UNRECOGNIZED DRUG - REMARK] SCH (15:07)
[2021-11-27] MEDS: HYDROmorphone INJ 0.5 MG/0.5 ML SYR IV PRN ×3 (18:33→23:36)
[2021-11-27] MEDS ORDERED: [UNRECOGNIZED DRUG - OTHER] IV SCH (21:00)
[2021-11-27] MEDS ORDERED: CENTRAL TPN IV SCH (21:00)
[2021-11-27] MEDS ORDERED: [UNRECOGNIZED DRUG - REMARK] IV SCH (21:00)
[2021-11-27] MEDS ORDERED: AMINO ACID 8% IV SCH (21:00)
[2021-11-27] MEDS: CEROVITE ADV FORMULA TAB PO SCH (21:15)
[2021-11-27] MEDS: FEXOFENADINE HCL 180 MG TAB PO SCH (21:15)
[2021-11-27] MEDS ORDERED: [UNRECOGNIZED DRUG - REMARK] SCH (21:30)
[2021-11-27] MEDS: DICYCLOMINE HCL 10 MG CAP PO PRN (22:52)
[2021-11-28] MEDS ORDERED: [UNRECOGNIZED DRUG - REMARK] IV SCH ×2
[2021-11-28] MEDS ORDERED: Nursing to Pharmacy Communication SCH
[2021-11-28] MEDS ORDERED: [UNRECOGNIZED DRUG - REMARK] SCH ×3 (00:30→07:30)
[2021-11-28] MEDS: HYDROmorphone INJ 0.5 MG/0.5 ML SYR IV PRN ×10 (01:52→21:52)
[2021-11-28] MEDS: LORazepam 0.5 MG in SYRINGE 0.25 ML IV PRN ×4 (03:04→23:48)
[2021-11-28] MEDS: ONDANSETRON INJ 2 MG/ML 2 ML VIAL IV PRN ×2 (06:14→21:55)
--- NOTE | 2021-11-28 07:02 | Hospitalist Progress Note ---
Date of Service November 28, 2021 Assessment & Plan (1) Abdominal pain, diffuse: (2) Anemia: (3) Uses feeding tube: (4) Elevated lipase: (5) Transaminitis: (6) Adrenal insufficiency: (7) On total parenteral nutrition (TPN): Plan Ms. Garica is a 31 y/o female with PMHx of ileostomy status, g-tube status, prior h/o SMA syndrome, adrenal insufficiency, TPN dependency, h/o intussusception, GI tract motility disorder, prior h/o endometriosis s/p hysterectomy, and chronic headaches who presented with abdominal pain, nausea, and vomiting and continues to have pain and nausea. #Abdominal Pain: Patient presented with nausea, vomiting, and abdominal pain. She has a complex medical history with multiple abdominal surgeries. Lipase 144 on admission however down to 29 on repeat. MRCP w/o biliary ductal dilation or choledocholithiasis. Reassuring that the pancreas is not the cause. Liver enzymes within normal limits. CT A/P w/o evidence of acute intra-abdominal or intrapelvic abnormality. C. diff gene positive however toxin negative - along with slowdown in diarrhea less likely c. dif infection. More likely abdominal adhesions and motility issues causing pain. GI consulted: Suspect acute exacerbation of patient's chronic issues. Held feeds until symptoms improved. Pain management was consulted for trigger point injection treatment. She was given two periumbilical trigger point injections. Patient was requiring Dilaudid every 2 hours initially, so she was started on a RACQUET MAKER Dilaudid to help get through this acute exacerbation. On 0.15 mg today Q15 minutes. Can decrease by 0.05 mg. Discontinued RACQUET MAKER. PRN IV pain meds. In regards to the "intestinal swelling" there weren't any signs of infection - erythema, purulent discharge, warmth. Recommended watch and wait On TPN: Patient on TPN at home usually. She was able to tolerate PO intake after last discharge. Restarted TPN given low likelihood of pancreatic involvement as above. Patient had previous worsening of abdominal pain when receiving TPN with lipids. Per pharmacy people on flag maker TPN can go 3-7 days without lipids. Reach out to dietary for guidance on when to add back lipids - per dietary min 100g lipids a week; rec two TPN sessions with 50g lipids on Tuesdays and Saturdays. Patient experienced significant pain last evening when having TPN with lipids. Lipids were stopped and TPN was continued. Patient agreeable to trying again. Mother will check if they have a home SMOF that could be used. Dietary updated. d/c goals - infrequent or no IV pain med requirement for adequate pain management, tolerating TPN feeds, manageable nausea [] reassess pain control - IV pain meds ordered PRN - 0.25 Q2hrs as needed, discuss changing dose vs increasing frequency [] consider oral breakthrough pain med - discussed toro Canales trial in house, talk to case management about coverage [] continue to monitor symptoms [] continue TPN - lipids added again tonight [] continue PPI/HR kasia per home regimen [] Tylenol scheduled 1000 mg Q8 [] TRGs to check lipid levels - 175 [] TPN script #Nausea/Vomiting: As above, most likely related to acute exacerbation of chronic issues (motility, adhesions). [] PRN Zofran and Ativan #Anemia: stable Hgb 11.9 upon admission, stable in the 10s. Drop may be related to rectal bleeding that has since stopped. May need colonoscopy outpatient. [] AM CBC, transfuse if <7.0 #Rectal bleeding/Pain - resolved Patient recently had rectal pain lasting 1-1.5hrs culminating in bleedi ng/discharge. Up-to-date with evidence in 1 trial for decreased rectal spasm/pain duration in patient's taking inhaled Beta2 agonist. Consider Albuterol PRN for proctalgia fugax in times of rectal pain/spasm - may shorten duration. Consider topical CCB or Nitroglycerin for cessation of rectal pain/spasm. #Elevated Lipase: resolved Lipase 144 on admission, down to 29 on repeat. Intestinal dysmotility: Long history of intestinal dysmotility, bowel perforation at the duodenum requiring ileostomy. Patient is candidate for small bowel transplant at [facility] and going through the process for approval. [] Continue supportive management as above. Adrenal insufficiency: Patient on 20 mg IV hydrocortisone TID in addition to home Florinef. Taper off hydrocortisone [11/27- 25 mg BID, 11/28- 25 mg BID, 11/29- 25 mg QD, 11/30 d/c hydrocortisone]. [] taper off hydrocortisone [] Continue home Florinef. Hypomagnesemia: Magnesium 1.2 on admission. Replenished with 3 bags of Mg. [] replete electrolytes as needed DVT: Heparin 5000 BID due to immobility. F/E/N/GI: Trial liquid diet, advance as tolerated. Code Status: Full code Dispo: Med/Surg. Admission and Anticipated Discharge Date Admission Date: November 21, 2021 Supervising Physician Co-Signing Physician Notes Patient seen and examined with PGY-1 Dr. Gonzalez. Agree with history, exam findings, assessment and plan of care. In brief, Pilar is a 31 year old female with hx of ileostomy, prior SMA syndrome, adrenal insufficiency admitted with abdominal pain, nausea, and vomiting. Had some increased abdominal pain overnight, but unrelated to TPN/lipids. She feels that the pain she is having is related to intermittent intussusception that she experiences. This morning, having more nausea. Does not want to restart the RACQUET MAKER even though sh does use the IVP dilaudid ~ q2h. Doing some clear liquids. VS and nursing notes reviewed. Non-toxic appearing. Mucus membranes are moist. Heart with regular rate and rhythm. Abdomen is soft, non-tender. Labs and imaging reviewed. 1. Abdominal pain. Exacerbation of motility/intussusception issue. Appreciate GI recommendations. Pain management: Increased dialudid dose with hopes that this will help her space out dialudid use. 2. TPN dependent. Restarted TPN and will try lipid solution from home tonight. Appreciate nutrition recs. 3. Nausea, vomiting. PRN Zofran and Ativan. 4. Rectal bleeding, pain. Resolved. Consider topical CCB or nitro if recurrent. 5. Dysmotility issues. In process of being evaluated for small bowel transplant at [facility]. 6. Adrenal insufficiency. Received hydrocortisone on admission and has been getting IV hydrocortisone since admission. Quick taper off. Continue home florinef. Dispo: pending clinical improvement. Spoke with nursing to limit interruptions overnight (ie vital signs, blood draws, weights). Rx for TPN to be delivered to home in the event that she is discharged over the weekend. Subjective Patient tolerated TPN + lipids last night - with manageable nausea. Patient did require an increase in Dilaudid, and is using the IV pain meds every 2 hours. She notes continued pain and nausea. The pain is described as twisting/sliding like her intussusception pain. Patient notes that her Dilaudid dose is not strong enough and does not always last the entire time. Otherwise no new complaints. Review of Systems Review of Systems: See Subjective/HPI Physical Exam Constitutional: WD/WN, vitals as above Eyes: PERRL, conjunctivae normal, anicteric sclerae Respiratory: normal respiratory effort, lungs clear to auscultation Cardiovascular: RRR, no murmur, no edema Gastrointestinal (Abdomen): Inspection/Auscultation: abdomen normal to inspection and normal bowel sounds Percussion/Palpation: + abdomen tender and abdomen soft Results & Data Results & Data ([facility]) Vital Signs (Past 12 Hours) Vital Signs Temp Pulse Resp BP Pulse Ox O2 Del Method 11/27/21 22:27 36.7 C 58 L 16 110/74 97 Room Air Laboratory Results 11/28/21 11/28/21 11/27/21 Range/Units 07:37 06:09 23:46 Sodium 139 (136-145) mmol/L Potassium 3.8 (3.5-5.1) mmol/L Chloride 105 (98-107) mmol/L Carbon Dioxide 28 (21-32) mmol/L Anion Gap 6 (3-11) BUN 17 (6-23) mg/dl Creatinine 0.58 L (0.6-1.2) mg/dl Est Cr Clr Drug Dosing 107.5 ml/min Est GFR ( Amer) 144.4 ml/min Est GFR (Non-Af Amer) 124.6 ml/min BUN/Creatinine Ratio 29.3 H (10-20) Glucose 125 H (70-99(Fasting)) mg/dl POC Glucose 118 H 114 H (70-99) mg/dl Calcium 8.3 L (8.5-10.1) mg/dl Phosphorus 3.8 (2.5-4.9) mg/dl Magnesium 1.9 (1.7-2.4) mg/dl Triglycerides 173 H (0-150) mg/dl 11/27/21 11/27/21 Range/Units 17:30 11:30 Sodium (136-145) mmol/L Potassium (3.5-5.1) mmol/L Chloride (98-107) mmol/L Carbon Dioxide (21-32) mmol/L Anion Gap (3-11) BUN (6-23) mg/dl Creatinine (0.6-1.2) mg/dl Est Cr Clr Drug Dosing ml/min Est GFR ( Amer) ml/min Est GFR (Non-Af Amer) ml/min BUN/Creatinine Ratio (10-20) Glucose (70-99(Fasting)) mg/dl POC Glucose 106 H 115 H (70-99) mg/dl Calcium (8.5-10.1) mg/dl Phosphorus (2.5-4.9) mg/dl Magnesium (1.7-2.4) mg/dl Triglycerides (0-150) mg/dl Diagnostic Findings No new imaging. Resident Activity Tracking Resident Involvement: Resident Care Provided Care Provided: Adult Hospital Medicine
[2021-11-28 08:06] LABS: BUN Creatinine Ratio 29.3 (10-20); Calcium 8.3 mg/dl (8.5-10.1); Creatinine Clr Calc Pharmacy 107.5 ml/min; Est GFR (African American) 144.4 ml/min; Est GFR (Non-African American) 124.6 ml/min; Magnesium 1.9 mg/dl (1.7-2.4); Phosphorus 3.8 mg/dl (2.5-4.9); Potassium 3.8 mmol/L (3.5-5.1)
[2021-11-28] MEDS: HYDROCORTISONE SOD 25 MG in SYRINGE 0 ML IV SCH ×2 (09:31→22:26)
[2021-11-28] MEDS: PANTOprazole 40 MG TAB PO SCH (09:32)
[2021-11-28] MEDS: ACETAMINOPHEN 500 MG TAB PO SCH ×3 (09:33→21:57)
[2021-11-28] MEDS: HEPARIN SOD 5,000 UNIT/0.5 ML VIAL SQ SCH ×2 (09:34→22:26)
[2021-11-28] MEDS: FLUDROCORTISONE ACETATE 0.1 MG TAB PO SCH ×2 (09:34→22:27)
[2021-11-28] MEDS: FAMOTIDINE 20 MG in SYRINGE 3 ML IV SCH ×2 (09:39→21:55)
[2021-11-28] MEDS: GABAPENTIN 250 MG/5 ML 470 ML BTL PO SCH ×3 (09:39→21:55)
[2021-11-28] MEDS: [UNRECOGNIZED DRUG - REMARK] SCH (15:07)
[2021-11-28] MEDS ORDERED: AMINO ACID 8% IV SCH (21:00)
[2021-11-28] MEDS ORDERED: [UNRECOGNIZED DRUG - OTHER] IV SCH (21:00)
[2021-11-28] MEDS ORDERED: CENTRAL TPN IV SCH (21:00)
[2021-11-28] MEDS: FEXOFENADINE HCL 180 MG TAB PO SCH (22:26)
[2021-11-28] MEDS: CEROVITE ADV FORMULA TAB PO SCH (22:26)
[2021-11-29] MEDS ORDERED: FAT EMUL/SOY/MCT/OLIV/FISH OIL 50 GM/250 ML BAG IV SCH
[2021-11-29] MEDS: HYDROmorphone INJ 0.5 MG/0.5 ML SYR IV PRN ×8 (00:03→21:10)
[2021-11-29] MEDS ORDERED: [UNRECOGNIZED DRUG - REMARK] SCH ×2 (00:30→07:30)
[2021-11-29] MEDS: LORazepam 0.5 MG in SYRINGE 0.25 ML IV PRN ×2 (04:12→21:42)
--- NOTE | 2021-11-29 07:33 | Hospitalist Progress Note ---
Date of Service November 29, 2021 Assessment & Plan (1) Abdominal pain, diffuse: (2) Anemia: (3) Uses feeding tube: (4) Elevated lipase: (5) Transaminitis: (6) Adrenal insufficiency: (7) On total parenteral nutrition (TPN): Plan Ms. Garcia is a 31 y/o female with PMHx of ileostomy status, g-tube status, prior h/o SMA syndrome, adrenal insufficiency, TPN dependency, h/o intussusception, GI tract motility disorder, prior h/o endometriosis s/p hysterectomy, and chronic headaches who presented with abdominal pain, nausea, and vomiting with improving pain and nausea. #Abdominal Pain: Patient presented with nausea, vomiting, and abdominal pain. She has a complex medical history with multiple abdominal surgeries. Lipase 144 on admission however down to 29 on repeat. MRCP w/o biliary ductal dilation or choledocholithiasis. Reassuring that the pancreas is not the cause. Liver enzymes within normal limits. CT A/P w/o evidence of acute intra-abdominal or intrapelvic abnormality. C. diff gene positive however toxin negative - along with slowdown in diarrhea less likely c. dif infection. More likely abdominal adhesions and motility issues causing pain. GI consulted: Suspect acute exacerbation of patient's chronic issues. Held feeds until symptoms improved. Pain management was consulted for trigger point injection treatment. She was given two periumbilical trigger point injections. Patient was requiring Dilaudid every 2 hours initially, so she was started on a OFFICE AIDE Dilaudid to help get through this acute exacerbation. Discontinued OFFICE AIDE. PRN IV pain meds. Attempting to transition to PO pain meds with Dilaudid Q3 for breakthrough pain today. On TPN: Patient on TPN at home usually. She was able to tolerate PO intake after last discharge. Restarted TPN given low likelihood of pancreatic involvement as above. Patient had previous worsening of abdominal pain when receiving TPN with lipids. Per pharmacy people on terminal operations supervisor TPN can go 3-7 days without lipids. Reach out to dietary for guidance on when to add back lipids - per dietary min 100g lipids a week; rec at minimum two TPN sessions with 50g lipids on Tuesdays and Saturdays. Patient has been tolerating TPN feeds with her home SMOF. Dietary updated. They recommended we hold off on lipids this evening since her lipid levels came back at 175. Dietary would recommend 50 g of lipids daily if her triglycerides go back to normal. Will repeat TRG tomorrow. TPN script was given to the patient. d/c goals - adequate pain management with oral agents, tolerating TPN feeds, manageable nausea [] started 7.5/325/15mL hydromorphone and Tylenol through the feeding tube, with Dilaudid 0.5 Q3 for breakthrough pain. [] will talk to case management about Nucynta [] will do TPN this evening without lipids [] continuing PPI/HR kasia per home regimen [] Tylenol is scheduled 500 mg Q8 since on a combo opioid [] continue to monitor symptoms #Nausea/Vomiting: As above, most likely related to acute exacerbation of chronic issues (motility, adhesions). [] PRN Zofran and Ativan on board #Anemia: stable Hgb 11.9 upon admission, stable in the 10s. Drop may be related to rectal bleeding that has since stopped. May need colonoscopy outpatient. [] AM CBC, transfuse if <7.0 #Rectal bleeding/Pain - resolved Patient recently had rectal pain lasting 1-1.5hrs culminating in bleeding/discharge. Up-to-date with evidence in 1 trial for decreased rectal spasm/pain duration in patient's taking inhaled Beta2 agonist. Consider Albuterol PRN for proctalgia fugax in times of rectal pain/spasm - may shorten duration. Consider topical CCB or Nitroglycerin for cessation of rectal pain/spasm. #Elevated Lipase: resolved Lipase 144 on admission, down to 29 on repeat. Intestinal dysmotility: Long history of intestinal dysmotility, bowel perforation at the duodenum requiring ileostomy. Patient is candidate for small bowel transplant at [facility] and going through the process for approval. [] Continue supportive management as above. Adrenal insufficiency: Patient on 20 mg IV hydrocortisone TID in addition to home Florinef. Taper off hydrocortisone [11/27- 25 mg BID, 11/28- 25 mg BID, 11/29- 25 mg QD, 11/30 d/c hydrocortisone]. [] Last dose of hydrocortisone given today [] Continue home Florinef. Hypomagnesemia: Magnesium 1.2 on admission. Replenished with 3 bags of Mg. [] replete electrolytes as needed DVT: Heparin 5000 BID due to immobility. F/E/N/GI: Trial liquid diet, advance as tolerated. Code Status: Full code Dispo: Med/Surg. Admission and Anticipated Discharge Date Admission Date: November 21, 2021 Supervising Physician Co-Signing Physician Notes Attending attestation Pt seen and examined in concert with Dr. Gonzalez. In agreement with the documented findings as noted in the resident documentation with any exceptions or additions as noted here. Abdominal pain controlled on present IV pain medication regimen, patient would like to transition to PO for support of discharge. Nausea minimal at this time. On examination, S1/S2 nl RRR no MCG. CTAB. Abd NT/ND BS+ve Abdominal pain in the setting of dysmotility and intussucpetion - GI consult - addition of PO liquid pain medication through G tube to assist w/ pain control and space out dilaudid use with taper when able TPN dependent - hold lipids from TPN per nutrition recommendation, restart tomorrow if improved Else see resident documentation as noted. Subjective The patient tolerated TPN last night. She states that her nausea is tolerable. She is requiring the IV Dilaudid every two hours. The patient notes that this does not fully relieve her pain. She is interested in getting off IV pain meds. The patient and her mother believe we are headed in a positive direction in terms of her pain and nausea. Otherwise she has no new complaints. Review of Systems Review of Systems: See Subjective/HPI Physical Exam Constitutional: WD/WN, vitals as above Eyes: PERRL, conjunctivae normal, anicteric sclerae Respiratory: normal respiratory effort, lungs clear to auscultation Cardiovascular: RRR, no murmur, no edema Gastrointestinal (Abdomen): Inspection/Auscultation: abdomen normal to inspection and normal bowel sounds Percussion/Palpation: + abdomen tender and abdomen soft Results & Data Results & Data ([facility]) Vital Signs (Past 12 Hours) Vital Signs Temp Pulse Resp BP Pulse Ox 11/28/21 23:41 37.3 C 60 16 110/74 94 Laboratory Results 11/29/21 11/29/21 11/29/21 Range/Units 09:02 09:02 05:56 WBC 9.15 (4.8-10.8) K/ul RBC 3.40 L (3.93-5.22) M/uL Hgb 10.8 L (12.0-16.0) g/dl Hct 31.6 L (34.1-44.9) % MCV 92.9 (80.0-100.0) fL MCH 31.8 (25.0-34.0) pg MCHC 34.2 (32.0-36.0) g/dL RDW Std Deviation 39.5 (36.4-46.3) fL RDW Coeff of Tim 11.8 (11.5-14.5) % Plt Count 215 (130-400) K/uL MPV 11.4 (9.4-12.3) fL Sodium 139 (136-145) mmol/L Potassium 3.7 (3.5-5.1) mmol/L Chloride 105 (98-107) mmol/L Carbon Dioxide 29 (21-32) mmol/L Anion Gap 5 (3-11) BUN 14 (6-23) mg/dl Creatinine 0.58 L (0.6-1.2) mg/dl Est Cr Clr Drug Dosing 107.5 ml/min Est GFR ( Amer) 144.4 ml/min Est GFR (Non-Af Amer) 124.6 ml/min BUN/Creatinine Ratio 24.1 H (10-20) Glucose 126 H (70-99(Fasting)) mg/dl POC Glucose 126 H (70-99) mg/dl Calcium 8.6 (8.5-10.1) mg/dl 11/28/21 11/28/21 11/28/21 Range/Units 23:41 17:30 12:04 WBC (4.8-10.8) K/ul RBC (3.93-5.22) M/uL Hgb (12.0-16.0) g/dl Hct (34.1-44.9) % MCV (80.0-100.0) fL MCH (25.0-34.0) pg MCHC (32.0-36.0) g/dL RDW Std Deviation (36.4-46.3) fL RDW Coeff of Tim (11.5-14.5) % Plt Count (130-400) K/uL MPV (9.4-12.3) fL Sodium (136-145) mmol/L Potassium (3.5-5.1) mmol/L Chloride (98-107) mmol/L Carbon Dioxide (21-32) mmol/L Anion Gap (3-11) BUN (6-23) mg/dl Creatinine (0.6-1.2) mg/dl Est Cr Clr Drug Dosing ml/min Est GFR ( Amer) ml/min Est GFR (Non-Af Amer) ml/min BUN/Creatinine Ratio (10-20) Glucose (70-99(Fasting)) mg/dl POC Glucose 101 H 100 H 157 H (70-99) mg/dl Calcium (8.5-10.1) mg/dl Diagnostic Findings No new imaging. Resident Activity Tracking Resident Involvement: Resident Care Provided Care Provided: Adult [facility] Medicine
[2021-11-29] MEDS: ONDANSETRON INJ 2 MG/ML 2 ML VIAL IV PRN ×3 (08:01→21:42)
[2021-11-29 09:18] LABS: Hematocrit (blood only) 31.6 % (34.1-44.9); Hemoglobin 10.8 g/dl (12.0-16.0); Mean Corpuscular Hemoglobin 31.8 pg (25.0-34.0); Mean Corpuscular Hgb Conc 34.2 g/dL (32.0-36.0); Mean Corpuscular Volume 92.9 fL (80.0-100.0); Mean Platelet Volume 11.4 fL (9.4-12.3); Platelet Count 215 K/uL (130-400); RDW Coefficient of Variation 11.8 % (11.5-14.5); RDW Standard Deviation 39.5 fL (36.4-46.3); White Blood Count 9.15 K/ul (4.8-10.8)
[2021-11-29] MEDS: GABAPENTIN 250 MG/5 ML 470 ML BTL PO SCH ×3 (09:22→21:12)
[2021-11-29] MEDS: FAMOTIDINE 20 MG in SYRINGE 3 ML IV SCH ×2 (09:22→22:20)
[2021-11-29] MEDS: ACETAMINOPHEN 500 MG TAB PO SCH ×2 (09:22→15:00)
[2021-11-29] MEDS: FLUDROCORTISONE ACETATE 0.1 MG TAB PO SCH ×2 (09:23→21:13)
[2021-11-29] MEDS: HEPARIN SOD 5,000 UNIT/0.5 ML VIAL SQ SCH ×2 (09:23→21:13)
[2021-11-29] MEDS: PANTOprazole 40 MG TAB PO SCH (09:25)
[2021-11-29 09:44] LABS: BUN Creatinine Ratio 24.1 (10-20); Calcium 8.6 mg/dl (8.5-10.1); Creatinine Clr Calc Pharmacy 107.5 ml/min; Est GFR (African American) 144.4 ml/min; Est GFR (Non-African American) 124.6 ml/min; Potassium 3.7 mmol/L (3.5-5.1)
[2021-11-29] MEDS ORDERED: HYDROCORTISONE SOD 25 MG in SYRINGE 0 ML IV SCH (11:00)
--- NOTE | 2021-11-29 13:15 | Pharmacy Report ---
PHA: Parenteral Nutrition Con - Date of Service November 29, 2021 - Scope Pharmacy was consulted on 11/21/21 to manage parenteral nutrition orders for this patient. - Subjective The patient receives chronic central parenteral nutrition. - Objective Height: 5 ft 6 in Weight: 47.6 kg Diet: NPO Intake & Output (24hrs):: Intake & Output 11/27/21 11/28/21 11/29/21 11/30/21 06:59 06:59 06:59 06:59 Intake Total 1817.75 / 1817.75 1275.243 / 3919.049 8719.757 / 1282.757 250 / 250 Output Total 1900 / 1900 3300 / 3300 1000 / 1000 700 / 700 Balance -82.25 / -82.25 -2024.757 / -202.757 282.757 / 282.757 -450 / -450 Weight 48.4 kg 47.6 kg 47.6 kg Laboratory Data (Last 24 Hr):: 11/29/21 09:02 Sodium 139 Potassium 3.7 Chloride 105 Carbon Dioxide 29 BUN 14 Creatinine 0.58 L Glucose 126 H Calcium 8.6 Nutrition Assessment:: Please refer to the Notes section of the EMR for the most recent e commerce manager note. - Assessment * Electrolytes stable - will continue current PN formulation * Rechecking BMP, magnesium, and phosphorus tomorrow AM * Triglycerides elevated from baseline (173 mg/dL on 11/28/21) * Discussed with dietary, will plan on lipids every other day * Of note, patient did not tolerate our lipid formulation, patient's mother to provide SMOF when needed * Plan is for discharge to home in coming days once pain adequately controlled * TPN prescriptions faxed to [facility] - Plan For day 9 of inpatient PN administration, the following will be ordered: Macronutrients Amino acids 77 grams/day Dextrose 134 grams/day Hold lipids today (tentatively planning on every other day) Micronutrients Sodium chloride 40 mEq Sodium acetate 40 mEq Potassium phosphate 15 mMol Potassium acetate 90 mEq Magnesium sulfate 12.18 mEq Calcium gluconate 9.3 mEq Additional additives: thiamine 100 mg Total volume 1070 mL to be infused over 18 hrs will provide 764 kcal/day Labs, as indicated, will be ordered per protocol Pharmacy will continue to follow and adjust parenteral nutrition orders on a daily basis. Thank you for allowing us to participate in the care of this patient.
[2021-11-29] MEDS: DICYCLOMINE HCL 10 MG CAP PO PRN (15:00)
[2021-11-29] MEDS: [UNRECOGNIZED DRUG - REMARK] SCH (16:01)
[2021-11-29] MEDS ORDERED: ACETAMINOPHEN 500 MG TAB PO PRN (17:06)
[2021-11-29] MEDS ORDERED: CENTRAL TPN IV SCH (21:00)
[2021-11-29] MEDS ORDERED: [UNRECOGNIZED DRUG - OTHER] IV SCH (21:00)
[2021-11-29] MEDS ORDERED: AMINO ACID 8% IV SCH (21:00)
[2021-11-29] MEDS: CEROVITE ADV FORMULA TAB PO SCH (21:12)
[2021-11-29] MEDS: FEXOFENADINE HCL 180 MG TAB PO SCH (21:12)
[2021-11-30] MEDS: HYDROmorphone INJ 0.5 MG/0.5 ML SYR IV PRN ×4 (00:12→19:46)
[2021-11-30] MEDS: ONDANSETRON INJ 2 MG/ML 2 ML VIAL IV PRN ×5 (01:52→23:08)
[2021-11-30] MEDS: LORazepam 0.5 MG in SYRINGE 0.25 ML IV PRN (04:58)
--- NOTE | 2021-11-30 06:39 | Hospitalist Progress Note ---
Date of Service November 30, 2021 Assessment & Plan (1) Abdominal pain, diffuse: (2) Anemia: (3) Uses feeding tube: (4) Elevated lipase: (5) Transaminitis: (6) Adrenal insufficiency: (7) On total parenteral nutrition (TPN): Plan Ms. Garcia is a 31 y/o female with PMHx of ileostomy status, g-tube status, prior h/o SMA syndrome, adrenal insufficiency, TPN dependency, h/o intussusception, GI tract motility disorder, prior h/o endometriosis s/p hysterectomy, and chronic headaches who presented with abdominal pain, nausea, and vomiting with improving pain and nausea, likely ready for discharge tomorrow. #Abdominal Pain: Patient presented with nausea, vomiting, and abdominal pain. She has a complex medical history with multiple abdominal surgeries. Lipase 144 on admission however down to 29 on repeat. MRCP w/o biliary ductal dilation or choledocholithiasis. Reassuring that the pancreas is not the cause. Liver enzymes within normal limits. CT A/P w/o evidence of acute intra-abdominal or intrapelvic abnormality. C. diff gene positive however toxin negative - along with slowdown in diarrhea less likely c. dif infection. More likely abdominal adhesions and motility issues causing pain. GI consulted: Suspect acute exace rbation of patient's chronic issues. Held feeds until symptoms improved. Pain management was consulted for trigger point injection treatment. She was given two periumbilical trigger point injections. Patient was requiring Dilaudid every 2 hours initially, so she was started on a TOOL GRINDER SET UP OPERATOR GEAR Dilaudid to help get through this acute exacerbation. Discontinued TOOL GRINDER SET UP OPERATOR GEAR. PRN IV pain meds. Patient now on 7.5/325/15mL hydrocodone and Tylenol 10mL through the feeding tube, with Dilaudid 0.5 Q3 for breakthrough pain. Dilaudid 0.5 mg Q3 PRN was stopped to assess pain control. On TPN: Patient on TPN at home usually. She was able to tolerate PO intake after last discharge. Restarted TPN given low likelihood of pancreatic involvement as above. Patient had previous worsening of abdominal pain when receiving TPN with lipids. Per pharmacy people on customer service sales consultant TPN can go 3-7 days without lipids. Reach out to dietary for guidance on when to add back lipids - per dietary min 100g lipids a week; rec at minimum two TPN sessions with 50g lipids on Tuesdays and Saturdays. Patient has been tolerating TPN feeds with her home SMOF. Dietary updated. They recommended we hold off on lipids this evening since her lipid levels came back at 175. Dietary would recommend 50 g of lipids daily if her triglycerides go back to normal. TRG 85 today. TPN script was given to the patient. d/c goals - adequate pain management with oral agents, tolerating TPN feeds, manageable nausea [] continue assessing pain control [] TRG 85 today. TPN with lipids tonight. [] continuing PPI/HR kasia per home regimen [] Tylenol is scheduled 500 mg Q8 since on a combo opioid [] continue to monitor symptoms #Nausea/Vomiting: As above, most likely related to acute exacerbation of chronic issues (motility, adhesions). Nausea is manageable with Zofran and Ativan. [] PRN Zofran and Ativan on board #Anemia: stable Hgb 11.9 upon admission, stable in the 10s. Drop may be related to rectal bleeding that has since stopped. May need colonoscopy outpatient. [] AM CBC, transfuse if <7.0 #Rectal bleeding/Pain - resolved Patient recently had rectal pain lasting 1-1.5hrs culminating in bleeding/discharge. Up-to-date with evidence in 1 trial for decreased rectal spasm/pain duration in patient's taking inhaled Beta2 agonist. Consider Albuterol PRN for proctalgia fugax in times of rectal pain/spasm - may shorten duration. Consider topical CCB or Nitroglycerin for cessation of rectal pain/spasm. #Elevated Lipase: resolved Lipase 144 on admission, down to 29 on repeat. Intestinal dysmotility: Long history of intestinal dysmotility, bowel perforation at the duodenum requiring ileostomy. Patient is candidate for small bowel transplant at [facility] and going through the process for approval. [] Continue supportive management as above. Adrenal insufficiency: Patient on 20 mg IV hydrocortisone TID in addition to home Florinef. Taper off hydrocortisone [11/27- 25 mg BID, 11/28- 25 mg BID, 11/29- 25 mg QD, 11/30 d/c hydrocortisone]. [] Continue home Florinef. Hypomagnesemia: Magnesium 1.2 on admission. Replenished with 3 bags of Mg. [] replete electrolytes as needed DVT: Heparin 5000 BID due to immobility. F/E/N/GI: Trial liquid diet, advance as tolerated. Code Status: Full code Dispo: Med/Surg. Admission and Anticipated Discharge Date Admission Date: November 21, 2021 Supervising Physician Co-Signing Physician Notes Attending attestation Pt seen and examined in concert with Dr. Gonzalez. In agreement with the documented findings as noted in the resident documentation with any exceptions or additions as noted here. Abdominal pain diminishing, likely better controlled with curent pain medication regimen. On examination, S1/S2 nl RRR no MCG. CTAB. Abd NT/ND BS+ve Abdominal pain in the setting of dysmotility and intussucpetion - GI consult - continue hydrocodone PO medication through G tube to assist w/ pain control and taper dilaudid to d/c TPN dependent - restart lipids from TPN per nutrition recommendation Else see resident documentation as noted. Subjective Pilar notes that she is slowly improving. She was nauseous last night which kept her from taking her liquid hydromorphone, so she took the PRN dilaudid instead. She feels her pain is relatively controlled and her nausea is manageable at this time. The patient reports that her abdominal tenderness has improved. Otherwise no complaints. Review of Systems Review of Systems: See Subjective/HPI Physical Exam Constitutional: WD/WN, vitals as above Eyes: PERRL, conjunctivae normal, anicteric sclerae Respiratory: normal respiratory effort, lungs clear to auscultation Cardiovascular: RRR, no murmur, no edema Gastrointestinal (Abdomen): Inspection/Auscultation: abdomen normal to inspection and normal bowel sounds Percussion/Palpation: + abdomen tender (less tender) and abdomen soft Results & Data Results & Data ([facility]) Vital Signs (Past 12 Hours) Vital Signs Temp Pulse Resp BP Pulse Ox O2 Del Method 11/30/21 07:36 36.4 C L 61 14 108/71 97 Room Air Laboratory Results 11/30/21 11/30/21 11/30/21 Range/Units 08:54 08:54 08:54 WBC 7.08 (4.8-10.8) K/ul RBC 3.52 L (3.93-5.22) M/uL Hgb 11.3 L (12.0-16.0) g/dl Hct 33.9 L (34.1-44.9) % MCV 96.3 (80.0-100.0) fL MCH 32.1 (25.0-34.0) pg MCHC 33.3 (32.0-36.0) g/dL RDW Std Deviation 41.6 (36.4-46.3) fL RDW Coeff of Tim 12.0 (11.5-14.5) % Plt Count 219 (130-400) K/uL MPV 11.0 (9.4-12.3) fL Sodium 140 (136-145) mmol/L Potassium 4.0 (3.5-5.1) mmol/L Chloride 105 (98-107) mmol/L Carbon Dioxide 31 (21-32) mmol/L Anion Gap 4 (3-11) BUN 19 (6-23) mg/dl Creatinine 0.67 (0.6-1.2) mg/dl Est Cr Clr Drug Dosing 93.1 ml/min Est GFR ( Amer) 137.7 ml/min Est GFR (Non-Af Amer) 118.8 ml/min BUN/Creatinine Ratio 28.4 H (10-20) Glucose 106 H (70-99(Fasting)) mg/dl POC Glucose (70-99) mg/dl Calcium 8.5 (8.5-10.1) mg/dl Phosphorus 4.3 (2.5-4.9) mg/dl Magnesium 2.2 (1.7-2.4) mg/dl Triglycerides 85 (0-150) mg/dl 11/30/21 11/29/21 11/29/21 Range/Units 06:48 23:59 17:55 WBC (4.8-10.8) K/ul RBC (3.93-5.22) M/uL Hgb (12.0-16.0) g/dl Hct (34.1-44.9) % MCV (80.0-100.0) fL MCH (25.0-34.0) pg MCHC (32.0-36.0) g/dL RDW Std Deviation (36.4-46.3) fL RDW Coeff of Tim (11.5-14.5) % Plt Count (130-400) K/uL MPV (9.4-12.3) fL Sodium (136-145) mmol/L Potassium (3.5-5.1) mmol/L Chloride (98-107) mmol/L Carbon Dioxide (21-32) mmol/L Anion Gap (3-11) BUN (6-23) mg/dl Creatinine (0.6-1.2) mg/dl Est Cr Clr Drug Dosing ml/min Est GFR ( Amer) ml/min Est GFR (Non-Af Amer) ml/min BUN/Creatinine Ratio (10-20) Glucose (70-99(Fasting)) mg/dl POC Glucose 121 H 103 H 102 H (70-99) mg/dl Calcium (8.5-10.1) mg/dl Phosphorus (2.5-4.9) mg/dl Magnesium (1.7-2.4) mg/dl Triglycerides (0-150) mg/dl 11/29/21 11/29/21 Range/Units 12:10 09:02 WBC (4.8-10.8) K/ul RBC (3.93-5.22) M/uL Hgb (12.0-16.0) g/dl Hct (34.1-44.9) % MCV (80.0-100.0) fL MCH (25.0-34.0) pg MCHC (32.0-36.0) g/dL RDW Std Deviation (36.4-46.3) fL RDW Coeff of Tim (11.5-14.5) % Plt Count (130-400) K/uL MPV (9.4-12.3) fL Sodium 139 (136-145) mmol/L Potassium 3.7 (3.5-5.1) mmol/L Chloride 105 (98-107) mmol/L Carbon Dioxide 29 (21-32) mmol/L Anion Gap 5 (3-11) BUN 14 (6-23) mg/dl Creatinine 0.58 L (0.6-1.2) mg/dl Est Cr Clr Drug Dosing 107.5 ml/min Est GFR ( Amer) 144.4 ml/min Est GFR (Non-Af Amer) 124.6 ml/min BUN/Creatinine Ratio 24.1 H (10-20) Glucose 126 H (70-99(Fasting)) mg/dl POC Glucose 109 H (70-99) mg/dl Calcium 8.6 (8.5-10.1) mg/dl Phosphorus (2.5-4.9) mg/dl Magnesium (1.7-2.4) mg/dl Triglycerides (0-150) mg/dl Diagnostic Findings No new imaging. Resident Activity Tracking Resident Involvement: Resident Care Provided Care Provided: [facility]
[2021-11-30 09:09] LABS: Hematocrit (blood only) 33.9 % (34.1-44.9); Hemoglobin 11.3 g/dl (12.0-16.0); Mean Corpuscular Hemoglobin 32.1 pg (25.0-34.0); Mean Corpuscular Hgb Conc 33.3 g/dL (32.0-36.0); Mean Corpuscular Volume 96.3 fL (80.0-100.0); Platelet Count 219 K/uL (130-400); RDW Standard Deviation 41.6 fL (36.4-46.3); Red Blood Count 3.52 M/uL (3.93-5.22); White Blood Count 7.08 K/ul (4.8-10.8)
[2021-11-30] MEDS: FAMOTIDINE 20 MG in SYRINGE 3 ML IV SCH ×2 (09:27→22:11)
[2021-11-30 09:28] LABS: BUN Creatinine Ratio 28.4 (10-20); Calcium 8.5 mg/dl (8.5-10.1); Creatinine Clr Calc Pharmacy 93.1 ml/min; Est GFR (African American) 137.7 ml/min; Est GFR (Non-African American) 118.8 ml/min; Magnesium 2.2 mg/dl (1.7-2.4); Phosphorus 4.3 mg/dl (2.5-4.9)
[2021-11-30] MEDS: HEPARIN SOD 5,000 UNIT/0.5 ML VIAL SQ SCH ×2 (09:28→22:12)
[2021-11-30] MEDS: FLUDROCORTISONE ACETATE 0.1 MG TAB PO SCH ×2 (09:28→22:12)
[2021-11-30] MEDS: PANTOprazole 40 MG TAB PO SCH (09:29)
[2021-11-30] MEDS: HYOSCYAMINE SULFATE 0.125 MG TAB SL PRN (09:29)
[2021-11-30] MEDS: GABAPENTIN 250 MG/5 ML 470 ML BTL PO SCH ×3 (09:29→22:11)
[2021-11-30] MEDS: HEPARIN 100 UNIT/ML 5ML FLUSH FLUSH PRN (15:06)
[2021-11-30] MEDS: [UNRECOGNIZED DRUG - REMARK] SCH (15:06)
[2021-11-30] MEDS ORDERED: [UNRECOGNIZED DRUG - OTHER] IV SCH (21:00)
[2021-11-30] MEDS ORDERED: CENTRAL TPN IV SCH (21:00)
[2021-11-30] MEDS ORDERED: AMINO ACID 8% IV SCH (21:00)
[2021-11-30] MEDS: CEROVITE ADV FORMULA TAB PO SCH (22:10)
[2021-11-30] MEDS: FEXOFENADINE HCL 180 MG TAB PO SCH (22:10)
[2021-11-30] MEDS: DICYCLOMINE HCL 10 MG CAP PO PRN (23:09)
[2021-12-01] MEDS ORDERED: [UNRECOGNIZED DRUG - REMARK] IV SCH
[2021-12-01] MEDS: LORazepam 0.5 MG in SYRINGE 0.25 ML IV PRN ×2 (00:06→10:03)
[2021-12-01] MEDS ORDERED: [UNRECOGNIZED DRUG - REMARK] SCH ×2 (00:30→07:30)
[2021-12-01] MEDS: HYOSCYAMINE SULFATE 0.125 MG TAB SL PRN (01:35)
[2021-12-01] MEDS: HYDROmorphone INJ 0.5 MG/0.5 ML SYR IV PRN (02:01)
[2021-12-01] MEDS: ONDANSETRON INJ 2 MG/ML 2 ML VIAL IV PRN (05:49)
[2021-12-01 07:33] LABS: Hematocrit (blood only) 34.5 % (34.1-44.9); Hemoglobin 11.4 g/dl (12.0-16.0); Mean Corpuscular Volume 96.9 fL (80.0-100.0); Mean Platelet Volume 11.1 fL (9.4-12.3); Platelet Count 249 K/uL (130-400); RDW Coefficient of Variation 11.9 % (11.5-14.5); RDW Standard Deviation 41.9 fL (36.4-46.3); Red Blood Count 3.56 M/uL (3.93-5.22); White Blood Count 7.06 K/ul (4.8-10.8)
[2021-12-01 08:08] LABS: Albumin Globulin Ratio 1.9 (0.9-2); Albumin Level 3.7 gm/dl (3.4-5.0); BUN Creatinine Ratio 25.7 (10-20); Bilirubin,Total 0.4 mg/dl (0.2-1.0); Calcium 8.7 mg/dl (8.5-10.1); Creatinine Clr Calc Pharmacy 89.1 ml/min; Est GFR (African American) 135.7 ml/min; Est GFR (Non-African American) 117.1 ml/min; Magnesium 2.2 mg/dl (1.7-2.4); Phosphorus 4.8 mg/dl (2.5-4.9); Potassium 3.8 mmol/L (3.5-5.1); Total Protein 5.7 gm/dl (6.0-8.3)
--- NOTE | 2021-12-01 08:10 | Hospitalist Progress Note ---
Date of Service December 01, 2021 Assessment & Plan (1) Abdominal pain, diffuse: (2) Anemia: (3) Uses feeding tube: (4) Elevated lipase: (5) Transaminitis: (6) Adrenal insufficiency: (7) On total parenteral nutrition (TPN): Plan Ms. Garcia is a 31 y/o female with PMHx of ileostomy status, g-tube status, prior h/o SMA syndrome, adrenal insufficiency, TPN dependency, h/o intussusception, GI tract motility disorder, prior h/o endometriosis s/p hysterectomy, and chronic headaches who presented with abdominal pain, nausea, and vomiting with improving pain and nausea, possibly ready for discharge today. #Abdominal Pain: Patient presented with nausea, vomiting, and abdominal pain. She has a complex medical history with multiple abdominal surgeries. Lipase 144 on admission however down to 29 on repeat. MRCP w/o biliary ductal dilation or choledocholithiasis. Reassuring that the pancreas is not the cause. Liver enzymes within normal limits. CT A/P w/o evidence of acute intra-abdominal or intrapelvic abnormality. C. diff gene positive however toxin negative - along with slowdown in diarrhea less likely c. dif infection. More likely abdominal adhesions and motility issues causing pain. GI consulted: Suspect acute exacer bation of patient's chronic issues. Held feeds until symptoms improved. Pain management was consulted for trigger point injection treatment. She was given two periumbilical trigger point injections. Patient was requiring Dilaudid every 2 hours initially, so she was started on a LAST MODEL MAKER Dilaudid to help get through this acute exacerbation. Discontinued LAST MODEL MAKER. PRN IV pain meds. Patient now on 7.5/325/15mL hydrocodone and Tylenol 10mL through the feeding tube, with Dilaudid 0.5 Q3 for breakthrough pain. Dilaudid 0.5 mg Q3 PRN was stopped to assess pain control. On TPN: Patient on TPN at home usually. She was able to tolerate PO intake after last discharge. Restarted TPN given low likelihood of pancreatic involvement as above. Patient had previous worsening of abdominal pain when receiving TPN with lipids. Per pharmacy people on skilled nursing TPN can go 3-7 days without lipids. Reach out to dietary for guidance on when to add back lipids - per dietary min 100g lipids a week; rec at minimum two TPN sessions with 50g lipids on Tuesdays and Saturdays. Patient has been tolerating TPN feeds with her home SMOF. Dietary updated. They recommended we hold off on lipids this evening since her lipid levels came back at 175. Dietary would recommend 50 g of lipids daily if her triglycerides go back to normal. TRG 85 today. TPN +lipid. Not given because it was not able to be located. TPN script was given to the patient. d/c goals - adequate pain management with oral agents, tolerating TPN feeds, manageable nausea [] continue assessing pain control [] TRG 85 today. TPN with lipids tonight. [] continuing PPI/HR kasia per home regimen [] Tylenol is scheduled 500 mg Q8 since on a combo opioid [] continue to monitor symptoms #Nausea/Vomiting: As above, most likely related to acute exacerbation of chronic issues (motility, adhesions). Nausea is manageable with Zofran and Ativan. [] PRN Zofran and Ativan on board #Anemia: stable Hgb 11.9 upon admission, stable in the 10s. Drop may be related to rectal bleeding that has since stopped. May need colonoscopy outpatient. [] AM CBC, transfuse if <7.0 #Rectal bleeding/Pain - resolved Patient recently had rectal pain lasting 1-1.5hrs culminating in bleeding/discharge. Up-to-date with evidence in 1 trial for decreased rectal spasm/pain duration in patient's taking inhaled Beta2 agonist. Consider Albuterol PRN for proctalgia fugax in times of rectal pain/spasm - may shorten duration. Consider topical CCB or Nitroglycerin for cessation of rectal pain/spasm. #Elevated Lipase: resolved Lipase 144 on admission, down to 29 on repeat. Intestinal dysmotility: Long history of intestinal dysmotility, bowel perforation at the duodenum requiring ileostomy. Patient is candidate for small bowel transplant at [facility] and going through the process for approval. [] Continue supportive management as above. Adrenal insufficiency: Patient on 20 mg IV hydrocortisone TID in addition to home Florinef. Taper off hydrocortisone [11/27- 25 mg BID, 11/28- 25 mg BID, 11/29- 25 mg QD, 11/30 d/c hydrocortisone]. [] Continue home Florinef. Hypomagnesemia: Magnesium 1.2 on admission. Replenished with 3 bags of Mg. [] replete electrolytes as needed DVT: Heparin 5000 BID due to immobility. F/E/N/GI: Trial liquid diet, advance as tolerated. Code Status: Full code Dispo: Med/Surg. Admission and Anticipated Discharge Date Admission Date: November 21, 2021 Subjective Patient reports having spinchter of Oddi pain last evening that required Dilaudid. Otherwise she feels that her abdominal tenderness, pain, and nausea are improving. She did not get lipids last night because pharmacy lost it. Otherwise no complaints. Review of Systems Review of Systems: See Subjective/HPI Constitutional: as per Subjective / HPI Physical Exam Constitutional: WD/WN, vitals as above Eyes: PERRL, conjunctivae normal, anicteric sclerae Respiratory: normal respiratory effort, lungs clear to auscultation Cardiovascular: RRR, no murmur, no edema Gastrointestinal (Abdomen): Inspection/Auscultation: abdomen normal to in spection and normal bowel sounds Percussion/Palpation: abdomen soft; abdomen nontender Results & Data Results & Data ([facility]) Vital Signs (Past 12 Hours) Vital Signs Temp Pulse Resp BP Pulse Ox O2 Del Method 12/01/21 07:57 36.2 C L 75 14 100/64 97 Room Air 12/01/21 00:01 37.1 C 65 16 112/77 97 Room Air Laboratory Results 12/01/21 12/01/21 12/01/21 Range/Units 06:36 06:36 06:33 WBC 7.06 (4.8-10.8) K/ul RBC 3.56 L (3.93-5.22) M/uL Hgb 11.4 L (12.0-16.0) g/dl Hct 34.5 (34.1-44.9) % MCV 96.9 (80.0-100.0) fL MCH 32.0 (25.0-34.0) pg MCHC 33.0 (32.0-36.0) g/dL RDW Std Deviation 41.9 (36.4-46.3) fL RDW Coeff of Tim 11.9 (11.5-14.5) % Plt Count 249 (130-400) K/uL MPV 11.1 (9.4-12.3) fL Sodium 139 (136-145) mmol/L Potassium 3.8 (3.5-5.1) mmol/L Chloride 104 (98-107) mmol/L Carbon Dioxide 29 (21-32) mmol/L Anion Gap 6 (3-11) BUN 18 (6-23) mg/dl Creatinine 0.70 (0.6-1.2) mg/dl Est Cr Clr Drug Dosing 89.1 ml/min Est GFR ( Amer) 135.7 ml/min Est GFR (Non-Af Amer) 117.1 ml/min BUN/Creatinine Ratio 25.7 H (10-20) Glucose 114 H (70-99(Fasting)) mg/dl POC Glucose 100 H (70-99) mg/dl Calcium 8.7 (8.5-10.1) mg/dl Phosphorus 4.8 (2.5-4.9) mg/dl Magnesium 2.2 (1.7-2.4) mg/dl Total Bilirubin 0.4 (0.2-1.0) mg/dl AST 16 (13-39) U/L ALT 78 H (7-52) U/L Alkaline Phosphatase 44 (34-104) U/L Total Protein 5.7 L (6.0-8.3) gm/dl Albumin 3.7 (3.4-5.0) gm/dl Globulin 2.0 L (2.5-4.0) gm/dl Albumin/Globulin Ratio 1.9 (0.9-2) Triglycerides (0-150) mg/dl 11/30/21 11/30/21 11/30/21 Range/Units 23:58 18:14 14:40 WBC (4.8-10.8) K/ul RBC (3.93-5.22) M/uL Hgb (12.0-16.0) g/dl Hct (34.1-44.9) % MCV (80.0-100.0) fL MCH (25.0-34.0) pg MCHC (32.0-36.0) g/dL RDW Std Deviation (36.4-46.3) fL RDW Coeff of Tim (11.5-14.5) % Plt Count (130-400) K/uL MPV (9.4-12.3) fL Sodium (136-145) mmol/L Potassium (3.5-5.1) mmol/L Chloride (98-107) mmol/L Carbon Dioxide (21-32) mmol/L Anion Gap (3-11) BUN (6-23) mg/dl Creatinine (0.6-1.2) mg/dl Est Cr Clr Drug Dosing ml/min Est GFR ( Amer) ml/min Est GFR (Non-Af Amer) ml/min BUN/Creatinine Ratio (10-20) Glucose (70-99(Fasting)) mg/dl POC Glucose 96 98 94 (70-99) mg/dl Calcium (8.5-10.1) mg/dl Phosphorus (2.5-4.9) mg/dl Magnesium (1.7-2.4) mg/dl Total Bilirubin (0.2-1.0) mg/dl AST (13-39) U/L ALT (7-52) U/L Alkaline Phosphatase (34-104) U/L Total Protein (6.0-8.3) gm/dl Albumin (3.4-5.0) gm/dl Globulin (2.5-4.0) gm/dl Albumin/Globulin Ratio (0.9-2) Triglycerides (0-150) mg/dl 11/30/21 11/30/21 11/30/21 Range/Units 08:54 08:54 08:54 WBC 7.08 (4.8-10.8) K/ul RBC 3.52 L (3.93-5.22) M/uL Hgb 11.3 L (12.0-16.0) g/dl Hct 33.9 L (34.1-44.9) % MCV 96.3 (80.0-100.0) fL MCH 32.1 (25.0-34.0) pg MCHC 33.3 (32.0-36.0) g/dL RDW Std Deviation 41.6 (36.4-46.3) fL RDW Coeff of Tim 12.0 (11.5-14.5) % Plt Count 219 (130-400) K/uL MPV 11.0 (9.4-12.3) fL Sodium 140 (136-145) mmol/L Potassium 4.0 (3.5-5.1) mmol/L Chloride 105 (98-107) mmol/L Carbon Dioxide 31 (21-32) mmol/L Anion Gap 4 (3-11) BUN 19 (6-23) mg/dl Creatinine 0.67 (0.6-1.2) mg/dl Est Cr Clr Drug Dosing 93.1 ml/min Est GFR ( Amer) 137.7 ml/min Est GFR (Non-Af Amer) 118.8 ml/min BUN/Creatinine Ratio 28.4 H (10-20) Glucose 106 H (70-99(Fasting)) mg/dl POC Glucose (70-99) mg/dl Calcium 8.5 (8.5-10.1) mg/dl Phosphorus 4.3 (2.5-4.9) mg/dl Magnesium 2.2 (1.7-2.4) mg/dl Total Bilirubin (0.2-1.0) mg/dl AST (13-39) U/L ALT (7-52) U/L Alkaline Phosphatase (34-104) U/L Total Protein (6.0-8.3) gm/dl Albumin (3.4-5.0) gm/dl Globulin (2.5-4.0) gm/dl Albumin/Globulin Ratio (0.9-2) Triglycerides 85 (0-150) mg/dl Diagnostic Findings No new imaging
[2021-12-01] MEDS: PANTOprazole 40 MG TAB PO SCH (10:04)
[2021-12-01] MEDS: FLUDROCORTISONE ACETATE 0.1 MG TAB PO SCH (10:05)
[2021-12-01] MEDS: HEPARIN SOD 5,000 UNIT/0.5 ML VIAL SQ SCH (10:05)
[2021-12-01] MEDS: GABAPENTIN 250 MG/5 ML 470 ML BTL PO SCH (10:11)
[2021-12-01] MEDS: FAMOTIDINE 20 MG in SYRINGE 3 ML IV SCH (10:11)
--- NOTE | 2021-12-01 14:02 | Discharge Summary ---
Date of Service December 01, 2021 Admission HPI Per Admitting Provider 31yo female with ileostomy status, g-tube status, prior h/o SMA syndrome, adrenal insufficiency, TPN dependency, h/o intussusception, GI tract motility disorder, prior h/o endometriosis s/p hysterectomy, and chronic headaches. Recent admission from 10/30 to 11/12 for colitis and pancreatitis with etiology of both uncertain. She presents with 2 days of increased ileostomy output, then the development of abdominal pain starting last pm. Patient states that following her recent hospital stay she was recovering well at home - abdominal symptoms were largely much improved, was able to tolerate PO intake (soup, liqui ds, etc), and her ostomy output was about normal. Typically she empties her ileostomy bag about 4-5 times each day. However, over the last 2 days, she has had to empty it about 8-9 times. The fluid has been pure bile. Last evening she then developed bloody, mucous-filled liquid from her rectum. She had such during the early portion of her previous hospital stay but this self-resolved. Then, the abdominal pain returned late last night. Initially it was mild/intermittent but gradually got severe through the night last pm and into today. Most of the pain is central and in the epigastric region. It radiates through to her back. She has had associated nausea with dry heaves. She denies any sick contacts at home. No fevers, but had some cold sweats/chills. No cough, sore throat, or ear pain. Denies dysuria. She used the hydrocodone liquid prescribed at hospital discharge on 11/12 and this did alleviate her pain although not completely. Admission Exam Per Admitting Provider gen - resting comfortably, NAD, a/o x 3, thin eyes - PERRL HENT - TMs clear b/l, nose clear, mouth with MMM, no lesions neck - no JVD, no thyroidmegaly, no masses CV - RRR, s1 s2, no murmur lungs - CTA b/l abd - mildly tender epigastric region; g-tube present - insertion site clean, dry, no erythema or drainage; ileostomy with bag in place right abdomen - bilious drainage in bag; ND; BS+; no HSM ext - no edema, pulses 2+ b/l musculo - joints without effusions skin - no rash chest - central port right chest clean, no erythema psych - a/o x 3 lymph - no cervical lymph nodes b/l Principal Diagnosis Acute Abdominal Pain Discharge Exam Const: WD/WN, vitals as above Eyes: PERRL, conjunctivae normal, anicteric sclerae Respiratory: normal respiratory effort, lungs clear to auscultation Cardiovascular: RRR, no murmur, no edema Gastrointestinal (Abdomen): Inspection/Auscultation: abdomen normal to inspection and normal bowel sounds Percussion/Palpation: abdomen soft; abdomen nontender Discharge Data Allergies Allergy/AdvReac Type Severity Reaction Status Date / Time morphine Allergy Severe Severe Verified 11/20/21 12:01 abdominal Pain, sphincter of oddi spasms amoxicillin Allergy Intermediate RASH Verified 11/19/21 17:31 calcium Allergy Intermediate SEE COMMENT Verified 11/26/21 13:27 [From VIACTIV Multi-Vitamin] cefazolin Allergy Intermediate rash Verified 11/19/21 17:31 Cephalosporins Allergy Intermediate HIVES Verified 11/19/21 17:31 clavulanic acid Allergy Intermediate HIVES Verified 11/19/21 17:31 folic acid Allergy Intermediate SEE COMMENT Verified 11/26/21 13:27 [From VIACTIV Multi-Vitamin] iron [From Venofer] Allergy Intermediate Muscle Pain Verified 11/19/21 17:31 multivitamin with minerals Allergy Intermediate SEE COMMENT Verified 11/26/21 13:27 [From VIACTIV Multi-Vitamin] Penicillins Allergy Intermediate HIVES Verified 11/19/21 17:31 prochlorperazine Allergy Intermediate HIVES Verified 11/19/21 17:31 promethazine Allergy Intermediate hives, Verified 11/19/21 17:31 throat swelling sulfamethoxazole Allergy Intermediate RASH Verified 11/19/21 17:31 sumatriptan Allergy Intermediate RASH Verified 11/19/21 17:31 trimethoprim Allergy Intermediate RASH Verified 11/19/21 17:31 metoclopramide AdvReac Severe anxiety/ Verified 11/19/21 17:31 jittery diphenhydramine AdvReac Intermediate Tachycardia, Verified 11/19/21 17:31 Severe Anxiety WITH IV ONLY erythromycin base AdvReac Intermediate GI SYMPTOMS Verified 11/19/21 17:31 citalopram [From Celexa] AdvReac Unknown CAN'T Verified 11/19/21 17:31 REMEMBER Consultations 11/19/21 17:48 ED Decision to Admit Stat 11/20/21 06:20 Consult Gastroenterology Routine 11/21/21 06:40 Consult Pain Management Routine Ordered Studies 11/19/21 14:43 CT abd pelvis IV con only Stat 11/19/21 18:50 MR MRCP Urgent Hospital Course (1) Abdominal pain, diffuse: (2) Anemia: (3) Uses feeding tube: (4) Elevated lipase: (5) Transaminitis: (6) Adrenal insufficiency: (7) On total parenteral nutrition (TPN): Plan Ms. Garcia is a 31 y/o female with PMHx of ileostomy status, g-tube status, prior h/o SMA syndrome, adrenal insufficiency, TPN dependency, h/o intussusception, GI tract motility disorder, prior h/o endometriosis s/p hysterectomy, and chronic headaches who presented with abdominal pain, nausea, and vomiting with improving pain and nausea, ready for discharge today. #Abdominal Pain: Patient presented with nausea, vomiting, and abdominal pain. She has a complex medical history with multiple abdominal surgeries. Lipase 144 on admission however down to 29 on repeat. MRCP w/o biliary ductal dilation or xi docholithiasis. Reassuring that the pancreas is not the cause. Liver enzymes within normal limits. CT A/P w/o evidence of acute intra-abdominal or intrapelvic abnormality. C. diff gene positive however toxin negative - along with slowdown in diarrhea less likely c. dif infection. More likely abdominal adhesions and motility issues causing pain. GI consulted: Suspect acute exacerbation of patient's chronic issues. Held feeds until symptoms improved. Pain management was consulted for trigger point injection treatment. She was given two periumbilical trigger point injections. Patient was requiring Dilaudid every 2 hours initially, so she was started on a LENS ENGRAVER Dilaudid to help get through this acute exacerbation. Discontinued LENS ENGRAVER. PRN IV pain meds. Patient now on 7.5/325/15mL hydrocodone and Tylenol 10mL through the feeding tube, with Dilaudid 0.5 Q3 for breakthrough pain. Dilaudid 0.5 mg Q3 PRN was stopped to assess pain control. Continued home regimen while inpatient. On TPN: Patient on TPN at home usually. She was able to tolerate PO intake after last discharge. Restarted TPN given low likelihood of pancreatic involvement as above. Patient had previous worsening of abdominal pain when receiving TPN with lipids. Per pharmacy people on custodial TPN can go 3-7 days without lipids. Reach out to dietary for guidance on when to add back lipids - per dietary min 100g lipids a week; rec at minimum two TPN sessions with 50g lipids on Tuesdays and Saturdays. Patient has been tolerating TPN feeds with her home SMOF. Dietary updated. They recommended we hold off on lipids this evening since her lipid levels came back at 175. Dietary would recommend 50 g of lipids daily if her triglycerides go back to normal. TRG 85 today. TPN + lipid - not given because it was not able to be located. TPN script was given to the patient. Continue TPN with lipids at home. Prescribed Lortab Elixier 7.5/325//15 mL dose 10mL for 3 days. #Nausea/Vomiting: As above, most likely related to acute exacerbation of chronic issues (motility, adhesions). Nausea is manageable with Zofran and Ativan. #Anemia: stable Hgb 11.9 upon admission, stable in the 10s. Drop may be related to rectal bleeding that has since stopped. May need colonoscopy outpatient. #Rectal bleeding/Pain - resolved Patient recently had rectal pain lasting 1-1.5hrs culminating in bleeding/discharge. Up-to-date with evidence in 1 trial for decreased rectal spasm/pain duration in patient's taking inhaled Beta2 agonist. Consider Albuterol PRN for proctalgia fugax in times of rectal pain/spasm - may shorten duration. Consider topical CCB or Nitroglycerin for cessation of rectal pain/spasm. #Elevated Lipase: resolved Lipase 144 on admission, down to 29 on repeat. Intestinal dysmotility: Long history of intestinal dysmotility, bowel perforation at the duodenum requiring ileostomy. Patient is candidate for small bowel transplant at [facility] and going through the process for approval. Adrenal insufficiency: Patient on 20 mg IV hydrocortisone TID in addition to home Florinef. Taper off hydrocortisone [11/27- 25 mg BID, 11/28- 25 mg BID, 11/29- 25 mg QD, 11/30 d/c hydrocortisone]. Continue home meds on discharge. Hypomagnesemia: Magnesium 1.2 on admission. Replenished with 3 bags of Mg. Repleted electrolytes as needed during hospital stay DVT: Heparin 5000 BID due to immobility. F/E/N/GI: Trial liquid diet, advance as tolerated. Code Status: Full code Dispo: Home. Total Time Total Time Spent Total Time Spent (In Minutes): See attending attestation Discharge Plan Discharge Items Patient Disposition: Home - Self-Care Reason For Visit: ELEVATED LIPASE, ABDOMINAL PAIN Discharge Diagnosis: Acute Abdominal Pain Activity: Per Instructions section Non-emergency contact: Primary Care Provider Call non-emergency contact if: your symptoms worsen and your pain is not controlled Follow-up/Referrals: Navdeep Vo DO [Physician] - Mariah Addison DO [Primary Care Provider] - Diet: Other - See Diet Comment Diet Comment: TPN with lipids every day. Liquids as tolerated Addtl Attending Provider Instructions: You were seen in the hospital for intractable abdominal pain with nausea. You were found to have an elevated lipase that resolved during the course of your admission. Your pain and nausea improved over the course of your admission. You required IV pain medication for pain control initially but then were able to tolerate liquid pain medication through your feeding tube. I'll order a few days worth of add on pain medication to get you through this acute abdominal pain. Continue your home regimen. TPN with lipids every day. Liquids as tolerated You were found to be anemic on admission which was stable throughout admission. Follow up with PCP, GI, Transplant. Pending Studies at Discharge: No Stand-Alone Forms: [facility] Sm[facility] Cess[facility] Medications and DC Order Prescriptions: Continued famotidine 40 mg tablet 20 mg PO BID Rx Instructions: 1/2 tablet dose ondansetron 4 mg tablet,disintegrating 4 mg translingual Q6H PRN (Reason: Nausea) hydrocortisone 10 mg tablet 10 - 15 mg PO BID Rx Instructions: TAKE 15 MG EVERY MORNING AND 10 MG EVERY AFTERNOON trimethobenzamide 300 mg Capsule 300 mg PO Q6H PRN (Reason: Nausea And Vomiting) hyoscyamine sulfate [Levsin/SL] 0.125 mg Tablet, Sublingual 0.125 mg SUBLINGUAL Q4H PRN (Reason: Abdominal Cramping) dicyclomine 10 mg Capsule 10 - 20 mg PO Q6H PRN (Reason: Abdominal Pain) pantoprazole [Protonix] 40 mg tablet,delayed release (DR/EC) 40 mg PO QAM lorazepam [Ativan] 2 mg/mL Solution 0.5 mg buccal QID PRN (Reason: Nausea) Rx Instructions: DIRECTED 0.5 MG (0.25 ML) gabapentin 250 mg/5 mL solution 300 mg PO TID Rx Instructions: 6 ml po TID fexofenadine 180 mg Tablet 180 mg PO PM hydrocodone-acetaminophen 7.5-325 mg/15 mL solution 10 ml PO Q6H PRN (Reason: moderate-severe pain) Qty: 120 0RF fludrocortisone 0.1 mg tablet 0.1 - 0.2 mg PO UD Rx Instructions: Take 0.2mg(2 tab)in the AM Take 0.1mg(1 tab) in the PM acetaminophen [Tylenol Extra Strength] 500 mg Tablet 1,000 mg PO Q6H PRN (Reason: Pain) ascorbic acid (vitamin C) [Vitamin C] 500 mg Tablet,Chewable 0 mg PO PM Rx Instructions: Takes 1 gummy daily UNKNOWN STRENGTH vitamin B complex Tablet 1 tab PO PM coenzyme Q10 [CoQ-10] 100 mg Capsule 0 mg PO PM Rx Instructions: Takes 1 tab daily UNKNOWN STRENGTH Multivitamin Gummies 200 mcg Tablet,Chewable 2 tab PO PM turmeric 400 mg Capsule 0 mg PO PM Rx Instructions: Takces 1 cap daily Discontinued Lortab Elixir 7.5-500 mg/15 mL Solution 10 ml feeding tube Q6H PRN (Reason: Pain) Discharge Orders: Discharge Order (Routine); Ordered 12/01/21 Ordered By: Lucrecia Gonzalez Admission Data Admit Date/Time: 11/21/21 19:17 Attending Provider: Brian Connelly Admit Provider: Praneeth Liu Primary Care Provider: Mariah Addison Other Providers: Praneeth Liu ; Navdeep Vo ; Mariama Pearson Paul Other Interventions: Discharge Summary Assessment (RN) Last Done: 12/01/21 13:34 Resident Activity Tracking Resident Involvement: Resident Care Provided Care Provided: Adult Hospital Medicine
[2021-12-01] MEDS: DICYCLOMINE HCL 10 MG CAP PO PRN (14:19)
[2021-12-01] MEDS: HEPARIN 100 UNIT/ML 5ML FLUSH FLUSH PRN (14:22)
== END 2021-12-01 15:00 | disposition home or self-care (01) | DRG 393 ==
LOC: 3W 13:29 → ED 13:29 → SUATTDRO 19:05 → 3W 20:05 → SUATTDRO 11-21 19:17
DX: E83.42 Hypomagnesemia; K62.5 Hemorrhage of anus and rectum; R74.01 Elevation of levels of liver transaminase levels; K59.89 Other specified functional intestinal disorders; Z88.0 Allergy status to penicillin; E43 Unspecified severe protein-calorie malnutrition; K56.1 Intussusception; Z93.1 Gastrostomy status; K66.0 Peritoneal adhesions (postprocedural) (postinfection); Z95.828 Presence of other vascular implants and grafts; Z88.1 Allergy status to other antibiotic agents; Z93.2 Ileostomy status; D62 Acute posthemorrhagic anemia; E27.40 Unspecified adrenocortical insufficiency; Z88.2 Allergy status to sulfonamides; D50.9 Iron deficiency anemia, unspecified

== ENCOUNTER 2022-01-14 01:26 | Inpatient (IN) ==
[2022-01-14] MEDS ORDERED: HYDROmorphone INJ 1 MG/ML SYRINGE IV STA (01:58)
--- NOTE | 2022-01-14 01:59 | Emergency Department Note ---
History of Present Illness General Chief complaint: Rectal Bleed Stated complaint: S/P COLONOSCOPY BLEEDING,WORSENING PAIN,NAUSEA Time Seen by Provider: 01/14/22 01:49 History of Present Illness Maximum Pain Intensity: 8 31-year-old female with extensive GI history presents emergency department she states that she received a colonoscopy 3 days ago at the [facility]. Patient states that she has had increased pain she has noticed bloody mucus in her ileostomy. Patient also states nausea. Patient is currently undergoing TPN treatment she does have a G-tube which she occasionally uses. Patient states pain is increased she takes pain medicine at home. She was seen by her primary care physician today was trying to reach [facility] for further treatment. Patient is reportedly getting an intestinal transplant. Patient rates the pain is moderate diffuse in nature. Home Medications Medication Instructions Recorded Confirmed Type dicyclomine 10 mg capsule 10 - 20 mg PO Q6H PRN Abdominal 03/07/18 01/14/22 History Pain hyoscyamine sulfate 0.125 mg 0.125 mg sublingual Q4H PRN 03/07/18 01/14/22 History sublingual tablet (Levsin/SL) Abdominal Cramping pantoprazole 40 mg tablet,delayed 40 mg PO QAM 09/08/19 01/14/22 History release (Protonix) famotidine 40 mg tablet 20 mg PO BID 11/28/19 01/14/22 History lorazepam 2 mg/mL injection 0.5 mg buccal QID PRN Nausea 12/05/19 01/14/22 History solution (Ativan) hydrocortisone 10 mg tablet 10 - 15 mg PO BID 02/07/20 01/14/22 History ondansetron 4 mg disintegrating 4 mg translingual Q6H PRN Nausea 02/07/20 01/14/22 History tablet trimethobenzamide 300 mg capsule 300 mg PO Q6H PRN Nausea And 02/07/20 01/14/22 History Vomiting fexofenadine 180 mg tablet 180 mg PO PM 10/09/20 01/14/22 History gabapentin 250 mg/5 mL oral 300 mg PO TID 10/09/20 01/14/22 History solution fludrocortisone 0.1 mg tablet 0.1 - 0.2 mg PO UD 12/12/20 01/14/22 History acetaminophen 500 mg tablet 1,000 mg PO Q6H PRN Pain 06/13/21 01/14/22 History (Tylenol Extra Strength) ascorbic acid (vitamin C) 500 mg 0 mg PO PM 06/13/21 01/14/22 History chewable tablet (Vitamin C) coenzyme Q10 100 mg capsule 0 mg PO PM 06/13/21 01/14/22 History (CoQ-10) multivitamin with minerals-folic 2 tab PO PM 06/13/21 01/14/22 History acid 200 mcg chewable tablet (Multivitamin Gummies) turmeric 400 mg capsule 0 mg PO PM 06/13/21 01/14/22 History vitamin B complex 1 tab PO PM 06/13/21 01/14/22 History hydrocodone 7.5 mg-acetaminophen 10 ml PO Q6H PRN moderate-severe 11/12/21 01/14/22 Rx 325 mg/15 mL oral solution pain #120 mL Allergies Allergy/AdvReac Type Severity Reaction Status Date / Time adhesive Allergy Severe Redness of Verified 01/13/22 12:59 Skin morphine Allergy Severe Severe Verified 01/13/22 12:59 abdominal Pain, sphincter of oddi spasms amoxicillin Allergy Intermediate RASH Verified 01/13/22 12:59 calcium Allergy Intermediate SEE COMMENT Verified 01/13/22 12:59 [From VIACTIV Multi-Vitamin] cefazolin Allergy Intermediate rash Verified 01/13/22 12:59 Cephalosporins Allergy Intermediate HIVES Verified 01/13/22 12:59 clavulanic acid Allergy Intermediate HIVES Verified 01/13/22 12:59 folic acid Allergy Intermediate SEE COMMENT Verified 01/13/22 12:59 [From VIACTIV Multi-Vitamin] iron [From Venofer] Allergy Intermediate Muscle Pain Verified 01/13/22 12:59 multivitamin with minerals Allergy Intermediate SEE COMMENT Verified 01/13/22 12:59 [From VIACTIV Multi-Vitamin] Penicillins Allergy Intermediate HIVES Verified 01/13/22 12:59 prochlorperazine Allergy Intermediate HIVES Verified 01/13/22 12:59 promethazine Allergy Intermediate hives, Verified 01/13/22 12:59 throat swelling sulfamethoxazole Allergy Intermediate RASH Verified 01/13/22 12:59 sumatriptan Allergy Intermediate RASH Verified 01/13/22 12:59 trimethoprim Allergy Intermediate RASH Verified 01/13/22 12:59 metoclopramide AdvReac Severe anxiety/ Verified 01/13/22 12:59 jittery diphenhydramine AdvReac Intermediate Tachycardia, Verified 01/13/22 12:59 Severe Anxiety WITH IV ONLY erythromycin base AdvReac Intermediate GI SYMPTOMS Verified 01/13/22 12:59 citalopram [From Celexa] AdvReac Unknown CAN'T Verified 01/13/22 12:59 REMEMBER Past Med/Surg History Medical History Asthma Chronic migraine Colitis Elevated lipase Endometriosis has had 3 surgeries for this. Last surgery [address] Hemorrhagic cystitis Hypotension Intussusception Pancreatitis PICC (peripherally inserted central catheter) in place TPN SMAS (superior mesenteric artery syndrome) History of SMAS Sphincter of Oddi dysfunction DECREASED GI MOTILITY Transaminitis Uses feeding tube gastroparesis and decreased GI motility can not tolerate feeding and uses TPN UTI (urinary tract infection) Surgical History H/O adenoidectomy H/O laparoscopy H/O lumpectomy right breast 2011 History of appendectomy History of bowel resection Part of duodenum removed due to necrosis; done at [facility] 2019 History of hysterectomy 09/27/19 History of removal of Port-a-Cath 10/13/[address] Geiger, [facility], due to bacteremia/sepsis. History of vascular access device 2017 Hx of colonoscopy during procedure perforated small bowel 10/27/[address] [facility], subsequent repair of duodenal area. Hx of ileostomy Hx of tonsillectomy S/P cholecystectomy 2015 S/P wrist surgery right Family History Father Hyperlipidemia Other No significant family history Social History Smoking Status: Never smoker Second Hand Exposure: No; Hx Alcohol Use: No Hx Substance Use: No Preferred Language: Estonian Communication Ability: Effective Visual Impairment: No Limitations Hearing Ability: Normal Utility Plant Operative Required: No Beliefs That Will Affect Care: None marital status: Single Current Living Situation: Family Current Living Situation Comment: Lives with family. current occupational status: unemployed current occupation: completed 4-year degree at [employer] How many Children do You have: 0 Feels Safe at Home: Yes Sexual Activity Comment: not sexually active Assistive Devices: None Review of Systems A total of 10 systems reviewed and were otherwise negative Constitutional: no fever Gastrointestinal: + abdominal pain, + nausea and + change in bowel habits Physical Exam Vital Signs Vital Signs - 24 hr 01/14/22 01:28 01/14/22 02:23 01/14/22 04:49 Temperature 37.1 C Temperature Source Temporal Artery Scan Pulse Rate 98 H 82 Pulse Rate from SpO2 Sensor 81 Respiratory Rate 20 17 Respiratory Effort / Characteristics Non-Labored Spontaneous Respiratory Depth Normal Blood Pressure 104/73 100/65 Blood Pressure [Left Arm] 100/65 Blood Pressure Mean 83 76 Blood Pressure Mean [Left Arm] 76 Blood Pressure Position Sitting Pulse Oximetry 99 99 Oxygen Delivery Method Room Air Room Air Sepsis Recent Fever Within 48 Hours No Sepsis New/Unexplained Change in Mental Status N/A Sepsis Action Taken by Nursing No Action Required 01/14/22 04:30 Temperature Temperature Source Pulse Rate 64 Pulse Rate from SpO2 Sensor 66 Respiratory Rate 15 Respiratory Effort / Characteristics Respiratory Depth Blood Pressure 94/70 L Blood Pressure [Left Arm] Blood Pressure Mean 78 Blood Pressure Mean [Left Arm] Blood Pressure Position Pulse Oximetry 99 Oxygen Delivery Method Room Air Sepsis Recent Fever Within 48 Hours Sepsis New/Unexplained Change in Mental Status Sepsis Action Taken by Nursing VITAL SIGNS - Vital signs and nursing notes were reviewed. GENERAL - no acute distress. Communicates well with provider and answers questions appropriately. SKIN - Without rashes. HEAD - NC/AT. EYES - PERRL with EOMI bilaterally. Sclera anicteric. Palpebral conjunctiva pink and moist with no injection noted. EARS - No deformities of external structures noted on gross examination bilaterally. NOSE - Midline and without cyanosis. No epistaxis or purulent drainage noted. Septum midline without deviation or septal hematoma noted. MOUTH/OROPHARYNX - Without perioral cyanosis. Buccal mucosa pink and moist and without leukoplakia. Tongue midline with equal elevation of palate bilaterally. No tonsillar hypertrophy, erythema, or exudates noted. NECK - Neck with FROM. Supple to palpation. No lymphadenopathy noted. No nuchal rigidity. LUNGS - Chest wall symmetric without accessory muscle use, intercostals retracti ons, or central cyanosis. Normal vesicular breath sounds CTA B/L. No wheezes, rales, or rhonchi appreciated. CARDIAC - RRR with S1/S2. No murmur, rubs, or gallops appreciated. Chest - port right chest ABDOMEN - Abdominal contour soft without pulsations or visible masses. BS normoactive all four quadrants.G tube present; ileostomy rlq; mild tenderness diffusely EXTREMITIES - No clubbing or peripheral cyanosis. +5/5 strength noted in UE/LE bilaterally. NEUROLOGIC - Cranial nerves II through XII grossly intact. Sensory intact to light touch throughout. Patellar reflexes +2/4. PSYCH - A&Ox3 and cooperates fully with examiner. Pt is very pleasant and interacts well with examiner. Course Reevaluation(s) Reevaluation #1: Patient on repeat examination states that she is continuing to have abdominal pain she is shaking. I discussed evaluation with the patient she feels that she cannot control her pain at home. Case will be discussed with the hospitalist for admission Time: 04:57 Consultations Consultation #1: [facility] hospitalist for admission. The case was discussed with them regarding the patient's presentation Administered Medications Hydromorphone HCl (Hydromorphone Inj 1 Mg/Ml Syringe) 1 mg IV Q3H PRN PRN Reason: Pain Stop: 01/28/22 05:32 Last Admin: 01/14/22 05:42 Dose: 1 mg Documented By: Discontinued Medications Hydromorphone HCl (Hydromorphone Inj 1 Mg/Ml Syringe) 1 mg IV NOW STA Stop: 01/14/22 01:59 Last Admin: 01/14/22 02:29 Dose: 1 mg Documented By: Ioversol (Optiray 300 500ml) 100 ml IV ONCE ONE Stop: 01/14/22 03:22 Last Admin: 01/14/22 03:22 Dose: 94 ml Documented By: EZ Ondansetron HCl (Ondansetron Inj 2 Mg/Ml 2 Ml Vial) 4 mg IV NOW STA Stop: 01/14/22 02:36 Last Admin: 01/14/22 02:38 Dose: 4 mg Documented By: Medical Decision Making Medical Records Attestation: I reviewed the patient's medical records. Home Medications Current Medication List: was personally reviewed by me Laboratory Data Attestation: I reviewed the patient's lab results. Result diagrams: 01/14/22 02:05 01/14/22 02:05 Lab Results 01/14/22 01/14/22 01/14/22 Range/Units 02:05 02:05 03:08 WBC 7.02 (4.8-10.8) K/ul RBC 3.95 (3.93-5.22) M/uL Hgb 12.5 (12.0-16.0) g/dl Hct 37.2 (34.1-44.9) % MCV 94.2 (80.0-100.0) fL MCH 31.6 (25.0-34.0) pg MCHC 33.6 (32.0-36.0) g/dL RDW Std Deviation 40.6 (36.4-46.3) fL RDW Coeff of Tim 11.8 (11.5-14.5) % Plt Count 261 (130-400) K/uL MPV 10.9 (9.4-12.3) fL Immature Gran % (Auto) 0.3 % Neut % (Auto) 63.8 % Lymph % (Auto) 24.2 % [place] % (Auto) 10.3 % Eos % (Auto) 1.1 % Baso % (Auto) 0.3 % Neut # (Auto) 4.48 (1.4-6.5) K/uL Lymph # (Auto) 1.70 (1.2-3.4) K/uL [place] # (Auto) 0.72 (0.24-0.82) K/uL Eos # (Auto) 0.08 (0-0.50) K/uL Baso # (Auto) 0.02 (0-0.2) K/uL Immature Gran # (Auto) 0.02 (0.00-0.02) K/uL Sodium 140 (136-145) mmol/L Potassium 3.9 (3.5-5.1) mmol/L Chloride 106 (98-107) mmol/L Carbon Dioxide 28 (21-32) mmol/L Anion Gap 6 (3-11) BUN 9 (6-23) mg/dl Creatinine 0.75 (0.6-1.2) mg/dl Est Cr Clr Drug Dosing Not Reportable Est GFR ( Amer) 124.8 ml/min Est GFR (Non-Af Amer) 107.7 ml/min BUN/Creatinine Ratio 12.0 (10-20) Glucose 100 H (70-99(Fasting)) mg/dl Calcium 8.8 (8.5-10.1) mg/dl Total Bilirubin 0.3 (0.2-1.0) mg/dl AST 13 (13-39) U/L ALT 8 (7-52) U/L Alkaline Phosphatase 50 (34-104) U/L Total Protein 6.9 (6.0-8.3) gm/dl Albumin 4.5 (3.4-5.0) gm/dl Globulin 2.4 L (2.5-4.0) gm/dl Albumin/Globulin Ratio 1.9 (0.9-2) Lipase 19 (11-82) U/L Urine Color Yellow Urine Appearance Cloudy A (Clear) Urine pH 8.0 H (4.5-7.5) Ur Specific [place] 1.013 (1.000-1.030) Urine Protein Negative (Negative) Urine Glucose (UA) Negative (Negative) Urine Ketones Negative (Negative) Urine Blood Negative (Negative) Urine Nitrite Negative (Negative) Urine Bilirubin Negative (Negative) Urine Urobilinogen Negative (Negative) Ur Leukocyte Esterase Negative (Negative) Urine WBC (Auto) 1-5 (0-5) /hpf Urine RBC (Auto) 0-4 (0-4) /hpf U Hyaline Cast (Auto) 0 (0-5) /lpf U Epithel Cells (Auto) 10-20 H (0-5) /lpf Urine Bacteria (Auto) Negative (Negative) Urine Test (Negative) SARS-CoV-2, RNA, NAAT (NEGATIVE) 01/14/22 01/14/22 Range/Units 03:08 05:10 WBC (4.8-10.8) K/ul RBC (3.93-5.22) M/uL Hgb (12.0-16.0) g/dl Hct (34.1-44.9) % MCV (80.0-100.0) fL MCH (25.0-34.0) pg MCHC (32.0-36.0) g/dL RDW Std Deviation (36.4-46.3) fL RDW Coeff of Tim (11.5-14.5) % Plt Count (130-400) K/uL MPV (9.4-12.3) fL Immature Gran % (Auto) % Neut % (Auto) % Lymph % (Auto) % [place] % (Auto) % Eos % (Auto) % Baso % (Auto) % Neut # (Auto) (1.4-6.5) K/uL Lymph # (Auto) (1.2-3.4) K/uL [place] # (Auto) (0.24-0.82) K/uL Eos # (Auto) (0-0.50) K/uL Baso # (Auto) (0-0.2) K/uL Immature Gran # (Auto) (0.00-0.02) K/uL Sodium (136-145) mmol/L Potassium (3.5-5.1) mmol/L Chloride (98-107) mmol/L Carbon Dioxide (21-32) mmol/L Anion Gap (3-11) BUN (6-23) mg/dl Creatinine (0.6-1.2) mg/dl Est Cr Clr Drug Dosing Est GFR ( Amer) ml/min Est GFR (Non-Af Amer) ml/min BUN/Creatinine Ratio (10-20) Glucose (70-99(Fasting)) mg/dl Calcium (8.5-10.1) mg/dl Total Bilirubin (0.2-1.0) mg/dl AST (13-39) U/L ALT (7-52) U/L Alkaline Phosphatase (34-104) U/L Total Protein (6.0-8.3) gm/dl Albumin (3.4-5.0) gm/dl Globulin (2.5-4.0) gm/dl Albumin/Globulin Ratio (0.9-2) Lipase (11-82) U/L Urine Color Urine Appearance (Clear) Urine pH (4.5-7.5) Ur Specific [place] (1.000-1.030) Urine Protein (Negative) Urine Glucose (UA) (Negative) Urine Ketones (Negative) Urine Blood (Negative) Urine Nitrite (Negative) Urine Bilirubin (Negative) Urine Urobilinogen (Negative) Ur Leukocyte Esterase (Negative) Urine WBC (Auto) (0-5) /hpf Urine RBC (Auto) (0-4) /hpf U Hyaline Cast (Auto) (0-5) /lpf U Epithel Cells (Auto) (0-5) /lpf Urine Bacteria (Auto) (Negative) Urine Test Negative (Negative) SARS-CoV-2, RNA, NAAT NEGATIVE (NEGATIVE) Imaging Data Radiologist's Impression: CT abdomen pelvis per radiology states gastrostomy tube in stomach the colon is collapsed there appears to be a right-sided ileostomy there is no evidence of bowel obstruction the rectum is mostly collapsed and shows no surrounding edema no free intraperitoneal air or significant free fluid no loculated fluid co llections status postcholecystectomy MDM Narrative Medical decision making differential diagnosis bowel obstruction intussusception pancreatitis colitis metabolic derangement dehydration. Plan is to check labs give IV fluids check CT give pain meds Impression & Plan Generalized abdominal pain, Nausea Discharge Plan Visit Data Chief Complaint: Rectal Bleed Stated Complaint: S/P COLONOSCOPY BLEEDING,WORSENING PAIN,NAUSEA ED Provider: Jr Kong Discharge Problem: Generalized abdominal pain, Nausea Patient Disposition: Being Evaluated by Hospitalist Forms Stand Alone Forms: [facility] Prescriptions Prescriptions: No Action famotidine 40 mg tablet 20 mg PO BID Rx Instructions: 1/2 tablet dose ondansetron 4 mg tablet,disintegrating 4 mg translingual Q6H PRN (Reason: Nausea) Rx Instructions: can also have iv hydrocortisone 10 mg tablet 10 - 15 mg PO BID Rx Instructions: TAKE 15 MG EVERY MORNING AND 10 MG EVERY AFTERNOON trimethobenzamide 300 mg Capsule 300 mg PO Q6H PRN (Reason: Nausea And Vomiting) hyoscyamine sulfate [Levsin/SL] 0.125 mg Tablet, Sublingual 0.125 mg SUBLINGUAL Q4H PRN (Reason: Abdominal Cramping) dicyclomine 10 mg Capsule 10 - 20 mg PO Q6H PRN (Reason: Abdominal Pain) pantoprazole [Protonix] 40 mg tablet,delayed release (DR/EC) 40 mg PO QAM lorazepam [Ativan] 2 mg/mL Solution 0.5 mg buccal QID PRN (Reason: Nausea) Rx Instructions: DIRECTED 0.5 MG (0.25 ML) gabapentin 250 mg/5 mL solution 300 mg PO TID Rx Instructions: 6 ml po TID fexofenadine 180 mg Tablet 180 mg PO PM hydrocodone-acetaminophen 7.5-325 mg/15 mL solution 10 ml PO Q6H PRN (Reason: moderate-severe pain) Qty: 120 0RF fludrocortisone 0.1 mg tablet 0.1 - 0.2 mg PO UD Rx Instructions: Take 0.2mg(2 tab)in the AM Take 0.1mg(1 tab) in the PM acetaminophen [Tylenol Extra Strength] 500 mg Tablet 1,000 mg PO Q6H PRN (Reason: Pain) ascorbic acid (vitamin C) [Vitamin C] 500 mg Tablet,Chewable 0 mg PO PM Rx Instructions: Takes 1 gummy daily UNKNOWN STRENGTH vitamin B complex Tablet 1 tab PO PM coenzyme Q10 [CoQ-10] 100 mg Capsule 0 mg PO PM Rx Instructions: Takes 1 tab daily UNKNOWN STRENGTH Multivitamin Gummies 200 mcg Tablet,Chewable 2 tab PO PM turmeric 400 mg Capsule 0 mg PO PM Rx Instructions: Takces 1 cap daily Referrals Referrals: Mariah Addison DO [Primary Care Provider] -
[2022-01-14] MEDS ORDERED: ONDANSETRON INJ 2 MG/ML 2 ML VIAL IV STA (02:35)
[2022-01-14 02:48] LABS: Alanine Aminotransferase 8 U/L (7-52); Albumin Globulin Ratio 1.9 (0.9-2); Albumin Level 4.5 gm/dl (3.4-5.0); Alkaline Phosphatase 50 U/L (34-104); Anion Gap 6 (3-11); Aspartate Aminotransferase 13 U/L (13-39); Bilirubin,Total 0.3 mg/dl (0.2-1.0); Blood Urea Nitrogen 9 mg/dl (6-23); Calcium 8.8 mg/dl (8.5-10.1); Carbon Dioxide 28 mmol/L (21-32); Chloride 106 mmol/L (98-107); Est GFR (African American) 124.8 ml/min; Est GFR (Non-African American) 107.7 ml/min; Globulin 2.4 gm/dl (2.5-4.0); Glucose 100 mg/dl (70-99(Fasting)); Lipase 19 U/L (11-82); Potassium 3.9 mmol/L (3.5-5.1); Sodium 140 mmol/L (136-145); Total Protein 6.9 gm/dl (6.0-8.3)
[2022-01-14] MEDS ORDERED: OPTIRAY 300 500mL IV ONE (03:21)
[2022-01-14 03:26] LABS: Appearance Urine Cloudy (Clear); Bacteria Urine Automated Negative (Negative); Bilirubin Urine Negative (Negative); Blood Urine Negative (Negative); Cast Urine Automated 0 /lpf (0-5); Color Urine Yellow; Glucose Urine UA Negative (Negative); Ketones Urine Negative (Negative); Leukocyte Esterase Urine Negative (Negative); Nitrite Urine Negative (Negative); Protein Urine Negative (Negative); RBC Urine Automated 0-4 /hpf (0-4); Specific Gravity Urine 1.013 (1.000-1.030); Urobilinogen Urine Negative (Negative)
[2022-01-14 03:31] LABS: Pregnancy Test, Urine Negative (Negative)
[2022-01-14 03:58] LABS: Basophils # (auto) 0.02 K/uL (0-0.2); Basophils % (auto) 0.3 %; Eosinophils # (auto) 0.08 K/uL (0-0.50); Eosinophils % (auto) 1.1 %; Hematocrit (blood only) 37.2 % (34.1-44.9); Hemoglobin 12.5 g/dl (12.0-16.0); Immature Granulocytes # (auto) 0.02 K/uL (0.00-0.02); Immature Granulocytes % (auto) 0.3 %; Lymphocytes % (auto) 24.2 %; Mean Corpuscular Hemoglobin 31.6 pg (25.0-34.0); Mean Corpuscular Hgb Conc 33.6 g/dL (32.0-36.0); Mean Corpuscular Volume 94.2 fL (80.0-100.0); Mean Platelet Volume 10.9 fL (9.4-12.3); Monocytes # (auto) 0.72 K/uL (0.24-0.82); Monocytes % (auto) 10.3 %; Neutrophils # (auto) 4.48 K/uL (1.4-6.5); Neutrophils % (auto) 63.8 %; Platelet Count 261 K/uL (130-400); RDW Coefficient of Variation 11.8 % (11.5-14.5); RDW Standard Deviation 40.6 fL (36.4-46.3); Red Blood Count 3.95 M/uL (3.93-5.22); White Blood Count 7.02 K/ul (4.8-10.8)
--- NOTE | 2022-01-14 05:19 | History & Physical Report ---
Date of Service January 14, 2022 Assessment & Plan (1) Abdominal pain, chronic, generalized: Plan: 31yo female a complex PMH including gastroparesis, SMA syndrome, ileostomy placement, G-tube placement (on TPN), and adrenal insufficiency presents with a few-day history of abdominal pain and increased bloody mucus per rectum. Abdominal pain, bloody mucus per rectum Vitals stable, no lab abnormalities Symptoms likely related to colonoscopy performed ~[address] a/p: no evidence of obstruction; G-tube and R-sided ileostomy noted; colon collapsed; rectum mostly collapsed without surrounding edema; no free air or significant free fluid; no loculated fluid collection GI consulted given patient's extensive GI history Dilaudid 1mg q3h prn Zofran prn PT/OT ordered given history of lengthy hospitalizations Continue home GI regimen Trend CBC, CMP Adrenal insufficiency: continue home regimen FEN: regular diet (patient does take PO in addition to TPN) Code status: full code DVT ppx: SCDs Consults: gastroenterology PT/OT: ordered Dispo: med/surg (2) Adrenal insufficiency: (3) Gastroparesis: (4) Gastrostomy tube in place: (5) Intestinal motility disorder: (6) Nausea: (7) On total parenteral nutrition (TPN): (8) SMAS (superior mesenteric artery syndrome): History of Present Illness Primary Care Provider: Mariah Addison DO 31yo female a complex PMH including gastroparesis, SMA syndrome, ileostomy placement, G-tube placement (on TPN), and adrenal insufficiency presents with a few-day history of abdominal pain and increased bloody mucus per rectum. Patient underwent colonoscopy three days ago at [facility]; since then she has had increased abdominal pain and bloody mucus per rectum. Patient notes her abdominal pain is worst near her ileostomy site. Also endorses associated nausea without vomiting. Patient denies fever, chills, vision changes, CP, palpitations, SOB, edema, dysuria, back pain, lightheadedness, dizziness, numbness, tingling, weakness, or other symptoms. Denies recent illness and recent travel. Of note, patient is awaiting an intestinal transplant at [facility]. Upon arrival, vitals were unremarkable; BP controlled, no tachycardia or tachypnea, patient afebrile, spO2 adequate on room air. Initial labs were unremarkable; no leukocytosis, no anemia, platelets wnl, no electrolyte abnormalities, LFTs wnl, lipase not elevated, covid PCR negative. Surrogate decision-maker in case of an emergency: dominic Garcia (cell: [phone]) Allergies Allergy/AdvReac Type Severity Reaction Status Date / Time adhesive Allergy Severe Redness of Verified 01/13/22 12:59 Skin morphine Allergy Severe Severe Verified 01/13/22 12:59 abdominal Pain, sphincter of oddi spasms amoxicillin Allergy Intermediate RASH Verified 01/13/22 12:59 calcium Allergy Intermediate SEE COMMENT Verified 01/13/22 12:59 [From VIACTIV Multi-Vitamin] cefazolin Allergy Intermediate rash Verified 01/13/22 12:59 Cephalosporins Allergy Intermediate HIVES Verified 01/13/22 12:59 clavulanic acid Allergy Intermediate HIVES Verified 01/13/22 12:59 folic acid Allergy Intermediate SEE COMMENT Verified 01/13/22 12:59 [From VIACTIV Multi-Vitamin] iron [From Venofer] Allergy Intermediate Muscle Pain Verified 01/13/22 12:59 multivitamin with minerals Allergy Intermediate SEE COMMENT Verified 01/13/22 12:59 [From VIACTIV Multi-Vitamin] Penicillins Allergy Intermediate HIVES Verified 01/13/22 12:59 prochlorperazine Allergy Intermediate HIVES Verified 01/13/22 12:59 promethazine Allergy Intermediate hives, Verified 01/13/22 12:59 throat swelling sulfamethoxazole Allergy Intermediate RASH Verified 01/13/22 12:59 sumatriptan Allergy Intermediate RASH Verified 01/13/22 12:59 trimethoprim Allergy Intermediate RASH Verified 01/13/22 12:59 metoclopramide AdvReac Severe anxiety/ Verified 01/13/22 12:59 jittery diphenhydramine AdvReac Intermediate Tachycardia, Verified 01/13/22 12:59 Severe Anxiety WITH IV ONLY erythromycin base AdvReac Intermediate GI SYMPTOMS Verified 01/13/22 12:59 citalopram [From Celexa] AdvReac Unknown CAN'T Verified 01/13/22 12:59 REMEMBER Home Medications Medication Instructions Recorded Confirmed Type dicyclomine 10 mg capsule 10 - 20 mg PO Q6H PRN Abdominal 03/07/18 01/14/22 History Pain hyoscyamine sulfate 0.125 mg 0.125 mg sublingual Q4H PRN 03/07/18 01/14/22 History sublingual tablet (Levsin/SL) Abdominal Cramping pantoprazole 40 mg tablet,delayed 40 mg PO QAM 09/08/19 01/14/22 History release (Protonix) famotidine 40 mg tablet 20 mg PO BID 11/28/19 01/14/22 History lorazepam 2 mg/mL injection 0.5 mg buccal QID PRN Nausea 12/05/19 01/14/22 History solution (Ativan) hydrocortisone 10 mg tablet 10 - 15 mg PO BID 02/07/20 01/14/22 History ondansetron 4 mg disintegrating 4 mg translingual Q6H PRN Nausea 02/07/20 01/14/22 History tablet trimethobenzamide 300 mg capsule 300 mg PO Q6H PRN Nausea And 02/07/20 01/14/22 History Vomiting fexofenadine 180 mg tablet 180 mg PO PM 10/09/20 01/14/22 History gabapentin 250 mg/5 mL oral 300 mg PO TID 10/09/20 01/14/22 History solution fludrocortisone 0.1 mg tablet 0.1 - 0.2 mg PO UD 12/12/20 01/14/22 History acetaminophen 500 mg tablet 1,000 mg PO Q6H PRN Pain 06/13/21 01/14/22 History (Tylenol Extra Strength) ascorbic acid (vitamin C) 500 mg 0 mg PO PM 06/13/21 01/14/22 History chewable tablet (Vitamin C) coenzyme Q10 100 mg capsule 0 mg PO PM 06/13/21 01/14/22 History (CoQ-10) multivitamin with minerals-folic 2 tab PO PM 06/13/21 01/14/22 History acid 200 mcg chewable tablet (Multivitamin Gummies) turmeric 400 mg capsule 0 mg PO PM 06/13/21 01/14/22 History vitamin B complex 1 tab PO PM 06/13/21 01/14/22 History hydrocodone 7.5 mg-acetaminophen 10 ml PO Q6H PRN moderate-severe 11/12/21 01/14/22 Rx 325 mg/15 mL oral solution pain #120 mL Past Med/Surg History Medical History Asthma Chronic migraine Colitis Elevated lipase Endometriosis has had 3 surgeries for this. Last surgery [address] Hemorrhagic cystitis Hypotension Intussusception Pancreatitis PICC (peripherally inserted central catheter) in place TPN SMAS (superior mesenteric artery syndrome) History of SMAS Sphincter of Oddi dysfunction DECREASED GI MOTILITY Transaminitis Uses feeding tube gastroparesis and decreased GI motility can not tolerate feeding and uses TPN UTI (urinary tract infection) Surgical History H/O adenoidectomy H/O laparoscopy H/O lumpectomy right breast 2011 History of appendectomy History of bowel resection Part of duodenum removed due to necrosis; done at [facility] 2019 History of hysterectomy 09/27/19 History of removal of Port-a-Cath 10/13/[address] Geiger, [facility], due to bacteremia/sepsis. History of vascular access device 2017 Hx of colonoscopy during procedure perforated small bowel 10/27/2019 at [facility], subsequent repair of duodenal area. Hx of ileostomy Hx of tonsillectomy S/P cholecystectomy 2015 S/P wrist surgery right Family History Father Hyperlipidemia Other No significant family history Social History Smoking Status: Never smoker Second Hand Exposure: No; Hx Alcohol Use: No Hx Substance Use: No Preferred Language: Tajik Communication Ability: Effective Visual Impairment: No Limitations Hearing Ability: Normal Section Cutter Required: No Beliefs That Will Affect Care: None marital status: Single Current Living Situation: Parent Current Living Situation Comment: Lives with family. current occupational status: unemployed current occupation: completed 4-year degree at [employer] How many Children do You have: 0 Feels Safe at Home: Yes Sexual Activity Comment: not sexually active Assistive Devices: Wheelchair Assistive Devices Comment: fatigues easily Physical Exam Physical Exam: Constitutional: tired-appearing, no acute distress HEENT: MMM CV: regular rhythm, no murmur appreciated, extremities well-perfused, no LE edema Resp: CTABL, no wheezes/rales/rhonchi appreciated, no increased work of breathing GI: soft, nondistended, ileostomy noted, mild RUQ and LUQ tenderness, moderate RLQ and LLQ tenderness, no guarding or rebound, BS present MSK: no gross deformities appreciated Skin: skin surrounding ileostomy site not erythematous or edematous, no exudate Neuro: alert, oriented, no focal neurologic deficit appreciated Results & Data Results & Data ([facility]) Vital Signs (Past 12 Hours) Vital Signs Temp Pulse Resp BP BP Pulse Ox O2 Del Method 01/14/22 04:30 64 15 94/70 L 99 Room Air 01/14/22 04:49 100/65 01/14/22 02:23 82 17 100/65 99 Room Air 01/14/22 01:28 37.1 C 98 H 20 104/73 99 Room Air Supervising Physician Co-Signing Physician Notes Attending addendum: I have physically seen this patient, have supervised the medical residents activities, and agree with the H&P unless as otherwise noted. Assessment and Plan: Abdominal pain/bloody mucus per rectum/recent colonoscopy at another facility- Admit for symptomatic control Dilaudid 1 mg IV every 3 hours as needed severe pain Zofran 4 mg IV every 6 hours as needed Famotidine 20 mg IV every 12 hours Follow serial laboratories Consult gastroenterology Remaining orders and notations as noted Resident Activity Tracking Resident Involvement: Resident Care Provided and Process Improvement Engineer Coverage Note Care Provided: Adult Hospital Medicine
[2022-01-14] MEDS: HYDROmorphone INJ 1 MG/ML SYRINGE IV PRN ×3 (05:42→12:19)
[2022-01-14] MEDS ORDERED: FLUDROCORTISONE ACETATE 0.1 MG TAB PO SCH (05:45)
[2022-01-14] MEDS ORDERED: ACETAMINOPHEN 500 MG TAB PO PRN (07:10)
[2022-01-14] MEDS ORDERED: SODIUM CHLORIDE 0.9% 1000ML 1,000 ML IV SCH (07:10)
--- NOTE | 2022-01-14 07:44 | CT Scan Report ---
ABDOMEN AND PELVIS CT WITH IV CONTRAST CT DOSE: 263.45 mGy.cm HISTORY: Generalized abdominal pain with rectal bleeding status post colonoscopy. TECHNIQUE: Multiaxial CT images of the abdomen and pelvis were performed following the use of intrave nous contrast. A dose lowering technique was utilized adhering to the principles of ALARA. COMPARISON STUDY: Abdomen and pelvis CT 11/19/2021. FINDINGS: Stable 2 mm subpleural nodule within the right lower lobe on image 1. This is of doubtful c linical significance. The left lung base is clear. No pneumoperitoneum. No pneumatosis. No fractures within the visualized osseous structures. A gastrostomy tube is in good position. Mild thickening of the gastric antrum, unchanged. No adjacent inflammatory change. Prior hysterectomy. The bladder is de compressed but appears unremarkable. No bowel wall thickening or obstruction. A right lower quadrant ostomy is again noted. Normal right ovary. There is a 1.9 cm (. This favors a corpus luteum. No retro peritoneal lymphadenopathy. The gallbladder surgically absent. The liver, spleen, adrenal glands, and kidneys are unremarkable. No hydronephrosis. Prominence of the common bile duct is likely due to the patient's postcholecystectomy state. Normal pancreas. The main portal vein is patent. Small area of focal fat within the liver adjacent to the falciform ligament. The rectum is underdistended contains a small amount of fluid. IMPRESSION: 1. Overall, no significant change compared to the prior study. 2. Mild thickening of the gastric antrum, unchanged. There is no adjacent inflammatory change to sugg est an acute process. This may be reactive to the indwelling gastrostomy tube which appears in good p osition. 3. No evidence for bowel obstruction. 4. Right lower quadrant ileostomy again noted. ACT 112: Negative or not required by law. Electronically signed by: Victor Hugo Snowden M.D. 01/14/2022 7:43 AM
--- NOTE | 2022-01-14 08:09 | Hospitalist Progress Note ---
Date of Service January 14, 2022 Assessment & Plan (1) Abdominal pain, chronic, generalized: Plan: Pt is a 31 yo female with PMH of gastroparesis, SMA syndrome, adrenal insufficiency, and multiple abdominal surgeries including cholecystectomy, bowel resection with ileostomy, hysterectomy presenting with increasing abdominal pain and blood/mucous per rectum and ileostomy site. Abdominal pain, bloody mucus per rectum - Vitals stable, no lab abnormalities - Symptoms exacerbated by recent colonoscopy, most likely d/t friable colonic mucosa - CTAP: no evidence of obstruction; G-tube and R-sided ileostomy noted; colon collapsed; rectum mostly collapsed without surrounding edema; no free air or significant free fluid; no loculated fluid collection - Dilaudid 1mg q2h PRN - Zofran prn - PT/OT ordered given history of lengthy hospitalizations - Continue home GI regimen - GI recommended stopping narcotics d/t motility issues and using simethicone for gas pains. Low threshold for transfer to [facility] if clinical picture worsens - HEAVY COIL WINDER to be started - consider steroid enema Adrenal insufficiency - continue home regimen (2) Adrenal insufficiency: (3) Gastroparesis: (4) Gastrostomy tube in place: (5) Intestinal motility disorder: (6) Nausea: (7) On total parenteral nutrition (TPN): (8) SMAS (superior mesenteric artery syndrome): Plan FEN: regular diet (patient does take PO in addition to TPN) Code status: full code DVT ppx: SCDs Consults: GI, PT/OT Dispo: med/surg Admission and Anticipated Discharge Date Admission Date: January 14, 2022 Supervising Physician Co-Signing Physician Notes I personally examined the patient and verified all solorzano points of history and exam, discussed case, and agree with decision making with Dr Kayleigh Gaytan. Nausea. Bleeding. Last admission trigger point injections really did not help. Notes that her symptoms were bad but manageable prior to her colonoscopy, now they have been more intense again. She believes that she has completed all the hurdles needed to be on the transplant list, although she does note she is not yet listed. Vitals noted, in general she is awake and alert pleasant but appears withdrawn and in a degree of pain distress. HEENT normocephalic atraumatic mucous membranes moist. Breathing unlabored no accessory muscle use good effort. Skin shows no rashes no pallor or icterus. Abdomen soft mild diffuse tenderness no guarding rebound or rigidity. Abdominal painmultifactorialhopefully with time after colonoscopy things will settle out more. Considering the risk/benefit of a steroid enema given that she may have a little bit of diversion colitis/inflammation/friable mucosabut certainly given the complexity of her situation will want to research and discuss further. Continue as needed pain and nausea for now, symptoms do appear to be improving some. Otherwise as above. Subjective Pt is a 31 yo female with PMH of gastroparesis, SMA syndrome, adrenal insufficiency, and multiple abdominal surgeries including cholecystectomy, bowel resection with ileostomy, hysterectomy presenting with abdominal pain and blood/mucous per rectum and ileostomy site. Her history of bowel surgeries seem to have begun d/t extensive endometriosis that extended throughout her intestines. 01/14/2022: Pt explains that she had blood and mucous per rectum since October. This has recently gotten worse after a colonoscopy on Thursday (01/10/2022). She has some lower abdominal cramping which she attributes to passing the blood and mucous. She also has a sharp pain medial to your ileostomy site. Pt says that the colonoscopy showed extremely friable tissue with bleeding and also lots of clumped/dried blood and mucous. The pt explains that she is awaiting a small bowel transplant and removal of her large intestine. Physical Exam Constitutional: NAD. Vitals WNL. Eyes: no conjunctival abnormality Respiratory: CTA bilaterally. No rhonchi, wheezing, or crackles. Non labored breathing. Cardiovascular: RRR. No murmur noted. No LL edema. Gastrointestinal (Abdomen): Nontender. No masses noted. Ileostomy site non erythematous and clean. Pinpoint pain on medial aspect of ileostomy site. Skin: no rashes, warm and dry Psychiatric: Alert. Mood and affect congruent. Results & Data Results & Data ([facility]) Vital Signs (Past 12 Hours) Vital Signs Temp Pulse Resp BP BP Pulse Ox O2 Del Method 01/14/22 06:30 77 25 H 101/73 98 Room Air 01/14/22 06:00 66 13 91/67 L 97 Room Air 01/14/22 04:30 64 15 94/70 L 99 Room Air 01/14/22 04:49 100/65 01/14/22 02:23 82 17 100/65 99 Room Air 01/14/22 01:28 37.1 C 98 H 20 104/73 99 Room Air Resident Activity Tracking Resident Involvement: Resident Care Provided Care Provided: Adult Hospital Medicine
--- NOTE | 2022-01-14 08:22 | Medical Student Progress Note ---
Date of Service January 14, 2022 Assessment & Plan (1) Abdominal pain, diffuse: Plan: Summary: Pilar is a 31 y/o F with an extensive medical history who presented to the ED last night with a few-day history of abdominal pain and increased bloody mucus per rectum following a colonoscopy. Her care has been managed by the inpatient team since her arrival to the ED. Today she reports reduced pain and nausea, and no questions about her care. She has never had anything like this before, and explains that she is awaiting an isolated small bowel transplant at [facility]. She does not report any fever or chills, palpitations, or vomiting. Her pain is currently well-managed by the prn PO hydromorphone/Dilaudid. She is not taking any anticoagulant/antiplatelet medications, and is accompanied by her mother. GI was consulted this morning: Stated their impression was benign, and to follow up with [facility]. Threshold for transfer to [facility] should be low. Suggested simethicone/Gas-X, pain management alternative to opioids due to intestinal motility issues. Labs: Her hemoglobin and hematocrit are both normal, and the rest of CBC and chemistries all within normal limits. Imaging: Abdominal/pelvic CT is normal, without signs of obstruction present. Impression/DDx: I believe the most likely cause of her acute bleeding from the biopsy taken during her recent colonoscopy, due to timeline of events, her established friable bowel tissue, and history of bowel perforation. My differential diagnosis includes intestinal obstruction due to extensive abdominal surgeries, secondary anemia due to blood loss, and infected/inflamed ileostomy site. However, the abdominal/pelvic CT did not present any evidence of obstruction. Her CBC showed normal hemoglobin and hematocrit, and she does not have conjunctival pallor. She is afebrile and her abdomen/ileostomy site is not abnormally painful and does not show redness, swelling, or fluid leakage. Plans: Continue NPO status to allow bowel rest; maintain TPN. IV fluid resuscitation; to maintain normovolemia. Steroid enema; to relieve some bleeding and alleviate constipation. (2) Nausea: Plan: Well-managed on ondansetron/Zofran at the moment, most likely secondary to abdominal pathology or side effect of Dilaudid. Labs: Electrolytes (Na, K, Cl, phosphate) normal (potential concern for acidosis secondary to volume loss). Further studies: Maintain electrolyte monitoring Plans: Continue ondansetron. Re-evaluate opioids for pain management Admission and Anticipated Discharge Date Admission Date: January 14, 2022 Subjective Pt is a 31 y/o female with an extensive medical history (gastroparesis, adrenal insufficiency, multiple abdominal surgeries, hysterectomy, bowel resection, ileostomy status, and gastric tube placement) who presented to the ED this morning with a 3-day history of moderate diffuse abdominal pain & nausea, and increased bloody mucus per rectum following a colonoscopy. Three days ago (01/10/2022) she went to the [facility] for a colonoscopy during which biopsies were taken and friable bowel tissue was observed, as well as extensive mucus and bleeding tissue. Since then, she has experienced bright red blood and mucus, as well as pain, with and without bowel movements. She is only able to pass stool if she uses an enema, and her bowel movements are painful. She has experienced intestinal perforation some years ago after a colonoscopy, and since she has just had a colonoscopy before her symptoms began this time, she elected to go to the ED. Prior to my evaluation 01/14/22 01:52 (ED Note) Maximum Pain Intensity: 8 31-year-old female with extensive GI history presents emergency department she states that she received a colonoscopy 3 days ago at the [facility]. Patient states that she has had increased pain she has noticed bloody mucus in her ileostomy. Patient also states nausea. Patient is currently undergoing TPN treatment she does have a G-tube which she occasionally uses. Patient states pain is increased she takes pain medicine at home. She was seen by her primary care physician today was trying to reach [facility] for further treatment. Patient is reportedly getting an intestinal transplant. Patient rates the pain is moderate diffuse in nature. Upon arrival, vitals were unremarkable; BP controlled, no tachycardia or tachypnea, patient afebrile, spO2 adequate on room air. Initial labs were unremarkable; no leukocytosis, no anemia, platelets wnl, no electrolyte abnormalities, LFTs wnl, lipase not elevated, COVID PCR negative. Physical Exam Constitutional: She is ill-appearing, thin (BMI 16.9), and speaks quietly. Eyes: Conjunctiva pink, mucous membranes moist. Respiratory: Slightly elevated rate (25/min), no observed use of accessory muscles, lungs clear to auscultation bilaterally, no wheezes/crackles/rhonchi. Cardiovascular: Normal rate and rhythm, with no murmurs, rubs, or gallops appreciated. Gastrointestinal (Abdomen): No observed distention, bruising, or erythema. Area around ileostomy site does not appear infected, swollen, or erythematous. Hyperactive bowel sounds in each quadrant, but most active in left lower quadrant. No appreciated renal or aortic bruits. Abdomen extremely tender to palpation, with mild guarding present. Due to patient's pain, rebound tenderness was not assessed. Psychiatric: Normal mood and affect. Results & Data ([facility]) Vital Signs (Past 12 Hours) Vital Signs Temp Pulse Resp BP BP Pulse Ox O2 Del Method 01/14/22 06:30 77 25 H 101/73 98 Room Air 01/14/22 06:00 66 13 91/67 L 97 Room Air 01/14/22 04:30 64 15 94/70 L 99 Room Air 01/14/22 04:49 100/65 01/14/22 02:23 82 17 100/65 99 Room Air 01/14/22 01:28 37.1 C 98 H 20 104/73 99 Room Air Laboratory Results Hgb 12.5 g/dl Hct 37.2 % Fasting glucose 100 mg/dl Urine appearance cloudy (AB) Urine pH 8 (H) Urine epithelial cells 10-20 (H) Urine specific gravity 1.013 AST/ALT/AST/Bilirubin/Albumin: wnl COVID NAAT Negative Diagnostic Findings Abdominal/pelvic CT: IMPRESSION: 1. Overall, no significant change compared to the prior study. 2. Mild thickening of the gastric antrum, unchanged. There is no adjacent inflammatory change to suggest an acute process. This may be reactive to the indwelling gastrostomy tube which appears in good position. 3. No evidence for bowel obstruction. 4. Right lower quadrant ileostomy noted. Medications Administered Ondansetron HCl prn Hydromorphone 1mg q3h/prn
[2022-01-14] MEDS: FLUDROCORTISONE ACETATE 0.1 MG TAB PO SCH ×2 (08:54→21:11)
[2022-01-14] MEDS: FAMOTIDINE 20 MG TAB PO SCH ×2 (08:54→21:11)
[2022-01-14] MEDS: HYDROCORTISONE 10 MG TAB PO SCH ×2 (08:55→13:29)
[2022-01-14] MEDS: PANTOprazole 40 MG TAB PO SCH (08:56)
[2022-01-14] MEDS: GABAPENTIN 250 MG/5 ML 470 ML BTL PO SCH ×3 (08:56→21:11)
[2022-01-14] MEDS: HYOSCYAMINE SULFATE 0.125 MG TAB SL PRN (08:56)
[2022-01-14] MEDS: DICYCLOMINE HCL 10 MG CAP PO PRN (08:56)
[2022-01-14] MEDS ORDERED: LORazepam 0.5 MG in SYRINGE 0.25 ML IV PRN (09:27)
[2022-01-14] MEDS ORDERED: TPN/PPN CONSULT PHARMACY PRN (09:35)
[2022-01-14] MEDS ORDERED: DEXTROSE 10% 1,000 ML IV PRN (09:40)
[2022-01-14] MEDS ORDERED: TPN/PPN CONSULT PHARMACY STA (09:40)
[2022-01-14] MEDS ORDERED: CENTRAL PN IV SCH ×2 (09:45→21:00)
[2022-01-14] MEDS: LORazepam 0.5 MG in SYRINGE 0.25 ML IV PRN ×2 (09:47→17:32)
--- NOTE | 2022-01-14 10:04 | Gastrointestinal Consultation ---
Date of Consultation January 14, 2022 Assessment & Plan (1) Ileostomy status: (2) Intestinal motility disorder: (3) Abdominal pain, chronic, generalized: (4) Gastroparesis: Plan 5) Rectal Bleeding CT abd/pelvis is unremarkable and H/H is higher than previously. Her colonoscopy was performed 3 days ago for the indication of rectal bleeding, so bleeding is not new. I would advise monitoring H/H and monitor for worsening GI bleeding. Would recommend scheduling doses of Simethicone as she may have more discomfort after recent colonoscopy due to potential air trapped. I do see she is prescribed narcotics as an outpatient by her PCP, but would advise avoiding narcotic analgesics given her underlying issue is reportedly an intestinal motility disorder. Would ask that her colonoscopy/path from [facility] be obtained for review. She thinks she may have been told there was inflammation in the rectum (?diversion colitis), but is unsure of the specifics. At the present time, would advise supportive care, but then she can follow-up with [facility] locally upon discharge and her team at [facility] is scheduled to contact her this week. Should her condition worsen/change or acute pathology develop, would have a low threshold for transferring to her GI team at [facility] as we have little to offer this patient locally. Supervising Physician Co-Signing Physician Notes Agree with RAFFY Felder as above Continue current therapy and supportive care No plans for invasive workup at this time Followup with [facility] as scheduled. History of Present Illness Reason for Consultation: Rectal bleeding s/p colonoscopy Attending Physician: Dioni Kumar MD History of Present Illness Patient is a 31 yo female with PMH of SMA syndrome s/p resection with ileostomy, history of intussusception with J tube, now with G tube and TPN fed. She is a patient of [facility] locally, but follows at [facility] for a small bowel transplant that is planned for next month. The patient reportedly underwent a colonoscopy (via rectum) 3 days ago given abdominal pain, ongoing bleeding, and work-up for her upcoming transplant. I do not have the records of this scope, however patient notes she was told that there was old mucous/blood stuck in the rectum. She is intermittently admitted for abdominal pain. A CT was obtained on admission without acute findings. Her H/H is unrem arkable at 12.5/37.2 which is actually higher than her last admission. LFTs along with remainder of CMP and her CBC are unremarkable. Exam is benign. She was seen by pain management during the last hospitalization, however I do not see that she has had outpatient follow-up. She appears to have been started on IV Dilaudid when admitted to the hospital. She takes daily narcotics at home. Allergies Allergy/AdvReac Type Severity Reaction Status Date / Time adhesive Allergy Severe Redness of Verified 01/13/22 12:59 Skin morphine Allergy Severe Severe Verified 01/13/22 12:59 abdominal Pain, sphincter of oddi spasms amoxicillin Allergy Intermediate RASH Verified 01/13/22 12:59 calcium Allergy Intermediate SEE COMMENT Verified 01/13/22 12:59 [From VIACTIV Multi-Vitamin] cefazolin Allergy Intermediate rash Verified 01/13/22 12:59 Cephalosporins Allergy Intermediate HIVES Verified 01/13/22 12:59 clavulanic acid Allergy Intermediate HIVES Verified 01/13/22 12:59 folic acid Allergy Intermediate SEE COMMENT Verified 01/13/22 12:59 [From VIACTIV Multi-Vitamin] iron [From Venofer] Allergy Intermediate Muscle Pain Verified 01/13/22 12:59 multivitamin with minerals Allergy Intermediate SEE COMMENT Verified 01/13/22 12:59 [From VIACTIV Multi-Vitamin] Penicillins Allergy Intermediate HIVES Verified 01/13/22 12:59 prochlorperazine Allergy Intermediate HIVES Verified 01/13/22 12:59 promethazine Allergy Intermediate hives, Verified 01/13/22 12:59 throat swelling sulfamethoxazole Allergy Intermediate RASH Verified 01/13/22 12:59 sumatriptan Allergy Intermediate RASH Verified 01/13/22 12:59 trimethoprim Allergy Intermediate RASH Verified 01/13/22 12:59 metoclopramide AdvReac Severe anxiety/ Verified 01/13/22 12:59 jittery diphenhydramine AdvReac Intermediate Tachycardia, Verified 01/13/22 12:59 Severe Anxiety WITH IV ONLY erythromycin base AdvReac Intermediate GI SYMPTOMS Verified 01/13/22 12:59 citalopram [From Celexa] AdvReac Unknown CAN'T Verified 01/13/22 12:59 REMEMBER Home Medications Medication Instructions Recorded Confirmed Type dicyclomine 10 mg capsule 10 - 20 mg PO Q6H PRN Abdominal 03/07/18 01/14/22 History Pain hyoscyamine sulfate 0.125 mg 0.125 mg sublingual Q4H PRN 03/07/18 01/14/22 History sublingual tablet (Levsin/SL) Abdominal Cramping pantoprazole 40 mg tablet,delayed 40 mg PO QAM 09/08/19 01/14/22 History release (Protonix) famotidine 40 mg tablet 20 mg PO BID 11/28/19 01/14/22 History lorazepam 2 mg/mL injection 0.5 mg buccal QID PRN Nausea 12/05/19 01/14/22 His tory solution (Ativan) hydrocortisone 10 mg tablet 10 - 15 mg PO BID 02/07/20 01/14/22 History ondansetron 4 mg disintegrating 4 mg translingual Q6H PRN Nausea 02/07/20 01/14/22 History tablet trimethobenzamide 300 mg capsule 300 mg PO Q6H PRN Nausea And 02/07/20 01/14/22 History Vomiting fexofenadine 180 mg tablet 180 mg PO PM 10/09/20 01/14/22 History gabapentin 250 mg/5 mL oral 300 mg PO TID 10/09/20 01/14/22 History solution fludrocortisone 0.1 mg tablet 0.1 - 0.2 mg PO UD 12/12/20 01/14/22 History acetaminophen 500 mg tablet 1,000 mg PO Q6H PRN Pain 06/13/21 01/14/22 History (Tylenol Extra Strength) ascorbic acid (vitamin C) 500 mg 0 mg PO PM 06/13/21 01/14/22 History chewable tablet (Vitamin C) coenzyme Q10 100 mg capsule 0 mg PO PM 06/13/21 01/14/22 History (CoQ-10) multivitamin with minerals-folic 2 tab PO PM 06/13/21 01/14/22 History acid 200 mcg chewable tablet (Multivitamin Gummies) turmeric 400 mg capsule 0 mg PO PM 06/13/21 01/14/22 History vitamin B complex 1 tab PO PM 06/13/21 01/14/22 History hydrocodone 7.5 mg-acetaminophen 10 ml PO Q6H PRN moderate-severe 11/12/21 01/14/22 Rx 325 mg/15 mL oral solution pain #120 mL Patient History Medical History Asthma Chronic migraine Colitis Elevated lipase Endometriosis has had 3 surgeries for this. Last surgery [address] Hemorrhagic cystitis Hypotension Intussusception Pancreatitis PICC (peripherally inserted central catheter) in place TPN SMAS (superior mesenteric artery syndrome) History of SMAS Sphincter of Oddi dysfunction DECREASED GI MOTILITY Transaminitis Uses feeding tube gastroparesis and decreased GI motility can not tolerate feeding and uses TPN UTI (urinary tract infection) Surgical History H/O adenoidectomy H/O laparoscopy H/O lumpectomy right breast 2011 History of appendectomy History of bowel resection Part of duodenum removed due to necrosis; done at [facility] 2019 History of hysterectomy 09/27/19 History of removal of Port-a-Cath 10/13/[address] Geiger, [facility], due to bacteremia/sepsis. History of vascular access device 2017 Hx of colonoscopy during procedure perforated small bowel 10/27/2019 at [facility], subsequent repair of duodenal area. Hx of ileostomy Hx of tonsillectomy S/P cholecystectomy 2015 S/P wrist surgery right Family History Father Hyperlipidemia Other No significant family history Social History Smoking Status: Never smoker Second Hand Exposure: No; Hx Alcohol Use: No Hx Substance Use: No Preferred Language: Turkmen Communication Ability: Effective Visual Impairment: No Limitations Hearing Ability: Normal Skein Bander Required: No Beliefs That Will Affect Care: None marital status: Single Current Living Situation: Family Current Living Situation Comment: Lives with family. current occupational status: unemployed current occupation: completed 4-year degree at [employer] How many Children do You have: 0 Feels Safe at Home: Yes Sexual Activity Comment: not sexually active Assistive Devices: None Review of Systems Constitutional: no fever and no chills Respiratory: no cough and no dyspnea Cardiovascular: no chest pain Gastrointestinal: + abdominal pain and + problem reported (blood per rectum); no change in bowel habits and no blood in stools (no blood in ostomy) Integumentary: no problem reported Psychiatric: no problem reported Hematologic / Lymphatic: no unexplained weight loss Physical Exam Constitutional: well developed Respiratory: normal respiratory effort Cardiovascular: RRR, no murmur, no edema Gastrointestinal (Abdomen): soft, not distended, stoma present RLQ, normal bowel sounds, +guarding Musculoskeletal: Head/Neck/Chest: normocephalic Psychiatric: Orientation: alert and oriented x 3 Results & Data ([facility]) Vital Signs (Past 12 Hours) Vital Signs Temp Pulse Resp BP BP Pulse Ox O2 Del Method 01/14/22 06:30 77 25 H 101/73 98 Room Air 01/14/22 06:00 66 13 91/67 L 97 Room Air 01/14/22 04:30 64 15 94/70 L 99 Room Air 01/14/22 04:49 100/65 01/14/22 02:23 82 17 100/65 99 Room Air 01/14/22 01:28 37.1 C 98 H 20 104/73 99 Room Air PG Care Time/CCT Total # of Minutes Spent Total Time Spent with Patient: Total time spent is greater than 50% in coordination of care (as documented) at patient's floor/unit and/or counseling patient: Coding Level of Care Code 75476 Inpt Consult Level 4 Diagnoses Ileostomy status Z93.2 Intestinal motility disorder K59.9 Abdominal pain, chronic, generalized R10.84; G89.29 Gastroparesis K31.84
[2022-01-14] MEDS: SIMETHICONE 80 MG CHEW PO SCH ×2 (13:28→17:33)
[2022-01-14] MEDS: ONDANSETRON INJ 2 MG/ML 2 ML VIAL IV PRN ×2 (13:35→21:11)
[2022-01-14] MEDS ORDERED: HYDROmorphone INJ 1 MG/ML SYRINGE IV PRN (14:09)
--- NOTE | 2022-01-14 14:23 | Electrocardiogram Report ---
Test Reason : Blood Pressure : / mmHG Vent. Rate : 068 BPM Atrial Rate : 068 BPM P-R Int : 130 ms QRS Dur : 084 ms QT Int : 384 ms P-R-T Axes : 037 037 034 degrees QTc Int : 408 ms Sinus rhythm with marked sinus arrhythmia When compared with ECG of 19-NOV-2021 15:32, No significant change was found Confirmed by John Nathan ([id number]) on 01/14/2022 2:23:33 PM Referred By: REFERRED SELF Confirmed By:John Nathan
[2022-01-14] MEDS: STOP ORDER: TPN SCH (14:58)
[2022-01-14] MEDS ORDERED: STOP ORDER: TPN ONE (15:00)
[2022-01-14] MEDS ORDERED: NALOXONE HCL 0.4 MG/1 ML VIAL/CARP IV PRN (16:31)
[2022-01-14] MEDS: HYDROmorphone PCA 30 MG/30 ML IV PRN (17:55)
[2022-01-14] MEDS: SODIUM CHLORIDE 0.9% 1000ML 1,000 ML IV SCH (17:55)
[2022-01-14] MEDS: FEXOFENADINE HCL 180 MG TAB PO SCH (21:11)
[2022-01-15] MEDS ORDERED: FAT EMUL/SOY/MCT/OLIV/FISH OIL 50 GM/250 ML BAG IV SCH
--- NOTE | 2022-01-15 00:19 | Billing Data ---
Date of Service January 15, 2022 Coding Level of Care Code INT OBSERVATION CARE 70M LVL 3
[2022-01-15] MEDS: SIMETHICONE 80 MG CHEW PO SCH ×5 (00:23→23:45)
[2022-01-15] MEDS: LORazepam 0.5 MG in SYRINGE 0.25 ML IV PRN ×3 (00:32→18:41)
[2022-01-15] MEDS: ONDANSETRON INJ 2 MG/ML 2 ML VIAL IV PRN ×2 (06:09→21:10)
[2022-01-15] MEDS ORDERED: [UNRECOGNIZED DRUG - REMARK] ONE (08:00)
[2022-01-15 09:43] LABS: Hematocrit (blood only) 35.6 % (34.1-44.9); Hemoglobin 11.9 g/dl (12.0-16.0); Mean Corpuscular Hemoglobin 31.7 pg (25.0-34.0); Mean Corpuscular Hgb Conc 33.4 g/dL (32.0-36.0); Mean Corpuscular Volume 94.9 fL (80.0-100.0); Mean Platelet Volume 10.3 fL (9.4-12.3); Platelet Count 246 K/uL (130-400); RDW Coefficient of Variation 11.9 % (11.5-14.5); RDW Standard Deviation 41.5 fL (36.4-46.3); Red Blood Count 3.75 M/uL (3.93-5.22); White Blood Count 7.64 K/ul (4.8-10.8)
--- NOTE | 2022-01-15 10:13 | Medical Student Progress Note ---
Date of Service January 15, 2022 Assessment & Plan (1) Adrenal insufficiency: (2) Abdominal pain, chronic, generalized: (3) Gastroparesis: (4) Gastrostomy tube in place: (5) Intestinal motility disorder: (6) Nausea: (7) On total parenteral nutrition (TPN): Plan Summary: Pt. is a 31 yo F with an extensive GI history who presented for abdominal pain and rectal bleeding s/p colonoscopy. Pain and nausea have improved since yesterday. Discussed diversion colitis and option of SCFA enemas today. Of note, her downtrending Hgb, BP, and increasing RR and HR, in the setting of GI bleeding, are concerning for hemorrhagic shock. 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 and use of short chain fatty acid enemas - [facility] confirmed availability of SCFAs but process of obtaining/insurance approval are TBD Nausea - Continue ondansetron - Ordered G-tube suction as requested by patient in an effort to begin drinking water Adrenal insufficiency - Continue home regimen Code: Full code Diet: TPN, PO intake as tolerated DVT Ppx: SCDs Admission and Anticipated Discharge Date Admission Date: January 14, 2022 Supervising Attestation I personally examined the patient and verified all solorzano points of history and exam, discussed case, and agree with decision making with Dr Victor ongoing pain Vitals noted, in general she is awake and alert pleasant but appears withdrawn and in a degree of pain distress. HEENT normocephalic atraumatic mucous membranes moist. Breathing unlabored no accessory muscle use good effort. Skin shows no rashes no pallor or icterus. Abdominal painmultifactorialongoing supportive care and symptom control Subjective Pt. is 31 yo F with PMH of extensive abdominal/bowel surgeries here for abdominal pain, nausea, and rectal bleeding s/p colonoscopy. 01/15/2022: Pt. reports improved pain and nausea from our last evaluation ~ 20 hours ago, with no additional abdominal pain, shortness of breath, chest pain, or other symptoms at this time. 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 She is interested in the possibility of short chain fatty acids enema. She will work with the case management team to determine insurance coverage to obtain this treatment. Review of Systems Review of Systems: See HPI Results & Data ([facility]) Vital Signs (Past 12 Hours) Vital Signs Temp Pulse Resp BP Pulse Ox O2 Del Method 01/15/22 07:31 36.6 C 91 H 16 99/66 L 98 Room Air 01/15/22 04:08 36.7 C 91 H 16 114/70 98 Room Air 01/14/22 23:52 36.7 C 85 14 107/71 97 Room Air Laboratory Results Hgb 11.9 (Down from 01/13/22 value of 12.6, 01/14/22 value of 12.1) RBC 3.75 (Down from 12/28/2021 value of 4.03) Na, K normal Cl 109 (H) AST 10 (L) ALT 6 (L) ALP normal Bilirubin 0.2 Medications Administered Acetaminophen 1000 mg PO Q8H PRN Dextrose 1000 mls IV PRN Diclofenac Na 2 gm QID Dicyclomine Hcl 10 mg PO Q6H PRN Famotidine 20 mg PO BID Fexofenadine Hcl 180 mg PO PM Fludrocortisone acetate 0.2 PO QPM Gabapentin 300mg PO TID Hydrocortisone 10mg PO Q24H Hydrocortisone 15mg PO AM Hydromorphone Hcl 30 mg PRN Lorazepam 0.5 mg 2ml/min Q6H PRN Odansetron Hcl 4 mg IV Q$H PRN Simethicone 80 mg PO Q6H
[2022-01-15] MEDS: [UNRECOGNIZED DRUG - REMARK] SCH (10:15)
[2022-01-15] MEDS: FLUDROCORTISONE ACETATE 0.1 MG TAB PO SCH ×2 (10:16→21:11)
[2022-01-15] MEDS: FAMOTIDINE 20 MG TAB PO SCH ×2 (10:16→21:11)
[2022-01-15] MEDS: HYDROCORTISONE 10 MG TAB PO SCH ×2 (10:18→14:31)
[2022-01-15] MEDS: PANTOprazole 40 MG TAB PO SCH (10:19)
[2022-01-15] MEDS: DICLOFENAC SOD 1% GEL 100 GM TUBE EXT SCH ×4 (10:19→21:11)
[2022-01-15 10:21] LABS: Albumin Globulin Ratio 1.8 (0.9-2); Albumin Level 3.8 gm/dl (3.4-5.0); BUN Creatinine Ratio 26.7 (10-20); Bilirubin,Total 0.2 mg/dl (0.2-1.0); Calcium 8.4 mg/dl (8.5-10.1); Creatinine Clr Calc Pharmacy 104.6 ml/min; Est GFR (African American) 142.8 ml/min; Est GFR (Non-African American) 123.2 ml/min; Globulin 2.1 gm/dl (2.5-4.0); Magnesium 2.3 mg/dl (1.7-2.4); Phosphorus 3.3 mg/dl (2.5-4.9); Potassium 4.4 mmol/L (3.5-5.1); Total Protein 5.9 gm/dl (6.0-8.3)
[2022-01-15] MEDS: GABAPENTIN 250 MG/5 ML 470 ML BTL PO SCH ×3 (10:23→21:11)
[2022-01-15 10:33] LABS: Basophils # (auto) 0.05 K/uL (0-0.2); Basophils % (auto) 0.7 %; Eosinophils # (auto) 0.18 K/uL (0-0.50); Eosinophils % (auto) 2.4 %; Immature Granulocytes # (auto) 0.02 K/uL (0.00-0.02); Immature Granulocytes % (auto) 0.3 %; Lymphocytes # (auto) 2.33 K/uL (1.2-3.4); Lymphocytes % (auto) 30.5 %; Monocytes # (auto) 0.88 K/uL (0.24-0.82); Monocytes % (auto) 11.5 %; Neutrophils # (auto) 4.18 K/uL (1.4-6.5); Neutrophils % (auto) 54.6 %; Toxic Vacuolation 1+
--- NOTE | 2022-01-15 11:03 | Pharmacy Report ---
Pharmacy PN Initial Consult - Date of Service January 15, 2022 - Scope Pharmacy has been consulted to manage parenteral nutrition orders and order appropriate labs. As part of the Nutrition Support Team guidelines, pharmacy will work in conjunction with dietary when determining the patients caloric needs. - Subjective The patient is a 31 year old F admitted on 01/14/22 05:42 for ABD PAIN, RECTAL BLEED AFTER COLONOSCOPY. - Objective Height: 5 ft 6 in Weight: 47.9 kg Intake & Output (Last 24Hrs): Intake & Output 01/13/22 01/14/22 01/15/22 01/16/22 06:59 06:59 06:59 06:59 Intake Total 205.16 / 205.16 191.475 / 191.475 Output Total 1275 / 1275 Balance -1069.84 / -1069.84 191.475 / 191.475 Weight 0 g 47.9 kg Laboratory Data (Last 24 Hrs):: 01/15/22 01/15/22 09:32 09:32 Sodium 140 Potassium 4.4 Chloride 109 H Carbon Dioxide 26 BUN 16 Creatinine 0.60 Glucose 108 H Calcium 8.4 L Phosphorus 3.3 Magnesium 2.3 Total Bilirubin 0.2 AST 10 L ALT 6 L Alkaline Phosphatase 42 Albumin 3.8 Triglycerides 76 Cancelled Nutrition Assessment:: Please refer to the Notes section of the EMR for the most recent sewing pattern layout technician note. - Assessment * DF is a 31 year old female, well known to pharmacy service, on chronic TPN secondary to GI dysmotility (gastroparesis, SMA syndrome) * Admitted on 01/14/22 due to rectal bleeding and abdominal pain * Currently awaiting intestinal transplant at [facility] * Patient currently utilizing home TPN and SMOF lipids * Mother to provide daily * Home TPN is cycled to run over 18 hours ([id number]) * Lipids infuse over 8 hours ([id number]) * Tolerating clear liquid diet, pain and nausea controlled today - Plan Outpatient TPN formulation to be infused: Macronutrients Amino acids 70 grams/day Dextrose 225 grams/day SMOF Lipids 50 grams/day Micronutrients Sodium chloride 145 mEq Sodium acetate 5 mEq Potassium phosphate 20.01 mMol Potassium chloride mEq Potassium acetate 125 mEq Magnesium sulfate 24 mEq Calcium gluconate 5 mEq Trace Elements 1 mL Total volume 1260 mL to be infused over 18 hrs will provide 1545 kcal/day Labs to be ordered per PN order protocol Pharmacy will follow and adjust parenteral nutrition orders on a daily basis. Thank you.
[2022-01-15] MEDS: HEPARIN 100 UNIT/ML 5ML FLUSH FLUSH PRN (15:25)
[2022-01-15] MEDS: STOP ORDER: TPN SCH (15:26)
[2022-01-15] MEDS ORDERED: CENTRAL PN IV SCH (21:00)
[2022-01-15] MEDS: FEXOFENADINE HCL 180 MG TAB PO SCH (21:11)
[2022-01-16] MEDS ORDERED: FAT EMUL/SOY/MCT/OLIV/FISH OIL 50 GM/250 ML BAG IV SCH
[2022-01-16] MEDS: LORazepam 0.5 MG in SYRINGE 0.25 ML IV PRN ×3 (00:50→18:28)
[2022-01-16] MEDS: DICYCLOMINE HCL 10 MG CAP PO PRN ×2 (02:25→22:15)
[2022-01-16] MEDS: SIMETHICONE 80 MG CHEW PO SCH ×4 (05:50→23:36)
[2022-01-16] MEDS: ONDANSETRON INJ 2 MG/ML 2 ML VIAL IV PRN ×3 (06:00→21:08)
[2022-01-16 07:00] LABS: BUN Creatinine Ratio 25.5 (10-20); Calcium 8.3 mg/dl (8.5-10.1); Creatinine Clr Calc Pharmacy 114.8 ml/min; Est GFR (African American) 146.9 ml/min; Est GFR (Non-African American) 126.8 ml/min; Magnesium 2.2 mg/dl (1.7-2.4); Phosphorus 3.2 mg/dl (2.5-4.9)
--- NOTE | 2022-01-16 07:48 | Medical Student Progress Note ---
Date of Service January 16, 2022 Assessment & Plan (1) Abdominal pain, chronic, generalized: Plan: Summary - Pt. is a 31 yo F with an extensive GI history who presented for abdominal pain and rectal bleeding s/p colonoscopy. Abdominal pain/rectal bleeding - 2 hours of intense abdominal pain last night, spontaneous resolution - No new bleeding, gas & nausea improved - Tolerating PO clear liquids, broth in small quantities - Will proceed with [facility] & case management (Letty) for SCFAs; awaiting call - Increased Bentyl/dicyclomine q6h dose from 10mg --> 20 mg - Reduced VISUAL AID EXPERT dose frequency to q20 minutes - Assess response to reduced VISUAL AID EXPERT and potential for further titration down Nausea - Gas & nausea improved - Continue ondansetron - Request G-tube suction delivery Adrenal insufficiency - Continue home regimen Code: Full code Diet: TPN, PO intake as tolerated DVT Ppx: SCDs Dispo: Med/surg (2) Gastroparesis: (3) Gastrostomy tube in place: (4) Intestinal motility disorder: (5) Nausea: (6) On total parenteral nutrition (TPN): (7) Adrenal insufficiency: (8) Generalized abdominal pain: Plan Patient seen and examined, chart reviewed, case discussed with Nina Nicole, and April Arce and I agree with the assessment and plan as above except as otherwise noted Labs and images reviewed Did have increased pain overnight, but gradually improved through the morning. No bleeding today. Attempting to advance clear liquids, doing okay this morning. Still waiting for confirmation of insurance and ability per prepare SCFA enemas with a pocket therapy. Abdomen remains focally tender near her ostomy, otherwise is nontender and without rebound or guarding. Lungs are clear , heart rate is regular in rate and rhythm. Abdominal pain/rectal bleeding Gradually slowly improving Patient would like to try to space out the dosing of her VISUAL AID EXPERT, notes that she is still in pain but it is tolerable and she would like to try to work to progress towards discharge. May switch to q. 20 minutes today, continue to follow Continue Bentyl/dicyclomine Patient is pending intestinal transplant and follow-up with specialty care Agree with management above, continue TPN Admission and Anticipated Discharge Date Admission Date: January 15, 2022 Subjective Pt. is 31 yo F with PMH of extensive abdominal/bowel surgeries here for abdominal pain, nausea, and rectal bleeding s/p colonoscopy. 01/15/2022: Pt. reports improved pain and nausea from our last evaluation ~ 20 hours ago, with no additional abdominal pain, shortness of breath, chest pain, or other symptoms at this time. 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 She is interested in the possibility of short chain fatty acids enema. She will work with the case management team to determine insurance coverage to obtain this treatment. 01/16/2022: Pt. experienced intense abdominal pain this morning from midnight until 02:00. The pain was the same as that she presented with originally, and it resolved spontaneously. Since then, her pain and nausea have improved and rectal bleeding has stopped. She has tolerated a slow intake of PO clear liquids (iced tea, water) over the last 24 hours. Gave consent to get more info from [facility]. short chain fatty acid enemas. Review of Systems Cardiovascular: Additional Comments: No chest pain, palpitations, shortness of breath, or lightheadedness. Gastrointestinal: No new abdominal pain. Physical Exam Constitutional: Alert and oriented, drowsy due to being woken up from sleep. Cardiovascular: Normal rate and rhythm, no murmurs, rubs, or gallops. Gastrointestinal (Abdomen): Soft and tender to palpation, no guarding or rebound tenderness. Hyperactive bowel sounds over all 4 quadrants. Ileostomy site appears healthy. Results & Data ([facility]) Vital Signs (Past 12 Hours) Vital Signs Temp Pulse Resp BP Pulse Ox O2 Del Method 01/16/22 03:28 36.6 C 71 14 100/96 97 Room Air 01/16/22 00:08 36.6 C 98 H 16 116/80 98 Room Air Laboratory Results Laboratory Results - last 24 hr 01/15/22 01/15/22 01/15/22 09:32 09:32 09:32 WBC 7.64 RBC 3.75 L Hgb 11.9 L Hct 35.6 MCV 94.9 MCH 31.7 MCHC 33.4 RDW Std Deviation 41.5 RDW Coeff of Tim 11.9 Plt Count 246 MPV 10.3 Immature Gran % (Auto) 0.3 Neut % (Auto) 54.6 Lymph % (Auto) 30.5 [place] % (Auto) 11.5 Eos % (Auto) 2.4 Baso % (Auto) 0.7 Neut # (Auto) 4.18 Lymph # (Auto) 2.33 [place] # (Auto) 0.88 H Eos # (Auto) 0.18 Baso # (Auto) 0.05 Immature Gran # (Auto) 0.02 Toxic Vacuolation 1+ Sodium 140 Potassium 4.4 Chloride 109 H Carbon Dioxide 26 Anion Gap 5 BUN 16 Creatinine 0.60 Est Cr Clr Drug Dosing 104.6 Est GFR ( Amer) 142.8 Est GFR (Non-Af Amer) 123.2 BUN/Creatinine Ratio 26.7 H Glucose 108 H POC Glucose Calcium 8.4 L Phosphorus 3.3 Magnesium 2.3 Total Bilirubin 0.2 AST 10 L ALT 6 L Alkaline Phosphatase 42 Total Protein 5.9 L Albumin 3.8 Globulin 2.1 L Albumin/Globulin Ratio 1.8 Triglycerides 76 Cancelled 01/15/22 01/15/22 01/16/22 12:15 18:10 00:03 WBC RBC Hgb Hct MCV MCH MCHC RDW Std Deviation RDW Coeff of Tim Plt Count MPV Immature Gran % (Auto) Neut % (Auto) Lymph % (Auto) [place] % (Auto) Eos % (Auto) Baso % (Auto) Neut # (Auto) Lymph # (Auto) [place] # (Auto) Eos # (Auto) Baso # (Auto) Immature Gran # (Auto) Toxic Vacuolation Sodium Potassium Chloride Carbon Dioxide Anion Gap BUN Creatinine Est Cr Clr Drug Dosing Est GFR ( Amer) Est GFR (Non-Af Amer) BUN/Creatinine Ratio Glucose POC Glucose 111 H 125 H 111 H Calcium Phosphorus Magnesium Total Bilirubin AST ALT Alkaline Phosphatase Total Protein Albumin Globulin Albumin/Globulin Ratio Triglycerides 01/16/22 01/16/22 05:52 06:17 WBC RBC Hgb Hct MCV MCH MCHC RDW Std Deviation RDW Coeff of Tim Plt Count MPV Immature Gran % (Auto) Neut % (Auto) Lymph % (Auto) [place] % (Auto) Eos % (Auto) Baso % (Auto) Neut # (Auto) Lymph # (Auto) [place] # (Auto) Eos # (Auto) Baso # (Auto) Immature Gran # (Auto) Toxic Vacuolation Sodium 138 Potassium 4.0 Chloride 108 H Carbon Dioxide 24 Anion Gap 6 BUN 14 Cr Laboratory Results - last 24 hr 01/15/22 01/16/22 01/16/22 18:10 00:03 05:52 Sodium Potassium Chloride Carbon Dioxide Anion Gap BUN Creatinine Est Cr Clr Drug Dosing Est GFR ( Amer) Est GFR (Non-Af Amer) BUN/Creatinine Ratio Glucose POC Glucose 125 H 111 H 106 H Calcium Phosphorus Magnesium Iron TIBC Unsaturated IBC Transferrin % Sat Ferritin 01/16/22 01/16/22 01/16/22 06:17 06:17 12:01 Sodium 138 Potassium 4.0 Chloride 108 H Carbon Dioxide 24 Anion Gap 6 BUN 14 Creatinine 0.55 L Est Cr Clr Drug Dosing 114.8 Est GFR ( Amer) 146.9 Est GFR (Non-Af Amer) 126.8 BUN/Creatinine Ratio 25.5 H Glucose 103 H POC Glucose 100 H Calcium 8.3 L Phosphorus 3.2 Magnesium 2.2 Iron 65 TIBC 261 Unsaturated IBC 196 Transferrin % Sat 25 Ferritin 52.2 Medications Administered Diclofenac Sodium (Diclofenac Sod 1% Gel 100 Gm Tube) 2 gm EXT QID EMERALD; Protocol Stop: 02/14/22 08:59 Last Admin: 01/15/22 21:11 Dose: Not Given Documented By: Admin: 01/15/22 18:10 Dose: Not Given Documented By: Admin: 01/15/22 14:30 Dose: Not Given Documented By: Admin: 01/15/22 10:19 Dose: Not Given Documented By: MONICO Dicyclomine HCl (Dicyclomine Hcl 10 Mg Cap) 10 mg PO Q6H PRN PRN Reason: Abdominal Pain Stop: 02/13/22 05:35 Last Admin: 01/16/22 02:25 Dose: 10 mg Documented By: RUMA Famotidine (Famotidine 20 Mg Tab) 20 mg PO BID EMERALD Stop: 02/13/22 08:59 Last Admin: 01/15/22 21:11 Dose: 20 mg Documented By: Admin: 01/15/22 10:16 Dose: 20 mg Documented By: Admin: 01/14/22 21:11 Dose: 20 mg Documented By: Admin: 01/14/22 08:54 Dose: 20 mg Documented By: GILLES Fexofenadine HCl (Fexofenadine Hcl 180 Mg Tab) 180 mg PO PM EMERALD Stop: 02/13/22 20:59 Last Admin: 01/15/22 21:11 Dose: 180 mg Documented By: Admin: 01/14/22 21:11 Dose: 180 mg Documented By: RUMA Fludrocortisone Acetate (Fludrocortisone Acetate 0.1 Mg Tab) 0.2 mg PO QAM EMERALD Stop: 02/13/22 08:59 Last Admin: 01/15/22 10:16 Dose: 0.2 mg Documented By: Admin: 01/14/22 08:54 Dose: 0.2 mg Documented By: GILLES Fludrocortisone Acetate (Fludrocortisone Acetate 0.1 Mg Tab) 0.1 mg PO QPM EMERALD Stop: 02/13/22 20:59 Last Admin: 01/15/22 21:11 Dose: 0.1 mg Documented By: Admin: 01/14/22 21:11 Dose: 0.1 mg Documented By: RUMA Gabapentin (Gabapentin 250 Mg/5 Ml 470 Ml Btl) 300 mg PO TID EMERALD Stop: 02/13/22 08:59 Last Admin: 01/15/22 21:11 Dose: 300 mg Documented By: Admin: 01/15/22 15:27 Dose: 300 mg Documented By: Admin: 01/15/22 10:23 Dose: 300 mg Documented By: Admin: 01/14/22 21:11 Dose: 300 mg Documented By: Admin: 01/14/22 13:29 Dose: Not Given Documented By: Admin: 01/14/22 08:56 Dose: 300 mg Documented By: GILLES Heparin Sodium (Porcine) (Heparin 100 Unit/Ml 5ml Flush) 5 ml FLUSH PRN PRN PRN Reason: Flush Stop: 02/13/22 14:58 Last Admin: 01/15/22 15:25 Dose: 5 ml Documented By: MONICO Hydrocortisone (Hydrocortisone 10 Mg Tab) 10 mg PO Q24H EMERALD Stop: 02/13/22 13:59 Last Admin: 01/15/22 14:31 Dose: 10 mg Documented By: Admin: 01/14/22 13:29 Dose: 10 mg Documented By: GILLES Hydrocortisone (Hydrocortisone 10 Mg Tab) 15 mg PO QAM EMERALD Stop: 02/13/22 08:59 Last Admin: 01/15/22 10:18 Dose: 15 mg Documented By: Admin: 01/14/22 08:55 Dose: 15 mg Documented By: GILLES Hydromorphone HCl (Hydromorphone Stress Engineer 30 Mg/30 Ml) 30 mg IV PRN PRN; Protocol PRN Reason: VISUAL AID EXPERT Pain Titration Stop: 01/28/22 16:30 Last Admin: 01/14/22 17:55 Dose: 30 mg Documented By: GILLES Co-signed By: JELENA Lorazepam 0.5 mg/ Syringe 0.5 mls @ 2 mls/min IV Q6H PRN PRN Reason: Anxiety or nausea Stop: 02/13/22 09:29 Last Admin: 01/16/22 00:50 Dose: 2 mls/min Documented By: Admin: 01/15/22 18:41 Dose: 2 mls/min Documented By: Admin: 01/15/22 11:09 Dose: 2 mls/min Documented By: Admin: 01/15/22 00:32 Dose: 2 mls/min Documented By: Admin: 01/14/22 17:32 Dose: 2 mls/min Documented By: Admin: 01/14/22 09:47 Dose: 2 mls/min Documented By: GILLES Sodium Chloride (Nss 1000ml) 1,000 mls @ 15 mls/hr IV .Q24H EMERALD Stop: 01/28/22 16:31 Last Infusion: 01/16/22 06:22 Dose: 15 mls/hr Documented By: Infusion: 01/15/22 06:27 Dose: 15 mls/hr Documented By: Admin: 01/14/22 17:55 Dose: 15 mls/hr Documented By: GILLES Fat Emulsion-Soy/MCT/[place]/Fish Oil (Smoflipid 20% Iv Fat Emulsion) 50 gm in 250 mls @ 16.66 mls/hr IV .Q15H1M EMERALD; Protocol Stop: 01/16/22 08:00 Last Infusion: 01/16/22 00:50 Dose: 33.3 mls/hr Documented By: Admin: 01/15/22 23:43 Dose: 15.6 mls/hr Documented By: URMA Nutrition (Parenteral) (Patient's Own Central Pn) 1,260 mls @ 37 mls/hr IV DAILY@2100 EMERALD; Protocol Stop: 01/16/22 15:00 Last Admin: 01/15/22 21:15 Dose: 37 mls/hr Documented By: RUMA Maldonado (*Trimethobenzamide*Order Awaiting Action) 1 each N/A QS [facility] Stop: 02/13/22 07:59 Last Admin: 01/16/22 00:55 Dose: Not Given Documented By: Admin: 01/15/22 17:03 Dose: Not Given Documented By: Admin: 01/15/22 10:20 Dose: Not Given Documented By: Admin: 01/15/22 00:23 Dose: Not Given Documented By: Admin: 01/14/22 14:58 Dose: Not Given Documented By: Admin: 01/14/22 08:42 Dose: Not Given Documented By: GILLES Maldonado (Tpn Rate Change: Pending Order) 1 each N/A DAILY@1400 [facility] Stop: 02/13/22 13:59 Last Admin: 01/15/22 14:32 Dose: 1 each Documented By: Admin: 01/14/22 14:57 Dose: 1 each Documented By: GILLES Maldonado (Tpn Rate Change: Pending Order) 1 each N/A DAILY@2200 [facility] Stop: 02/13/22 21:59 Last Admin: 01/15/22 22:20 Dose: 1 each Documented By: Admin: 01/14/22 22:22 Dose: 1 each Documented By: RUMA Maldonado (Order Awaiting Action: Patient's Own Tpn) 1 each N/A DAILY@1400 [facility] Stop: 02/13/22 13:59 Last Admin: 01/15/22 14:33 Dose: 1 each Documented By: Admin: 01/14/22 14:56 Dose: 1 each Documented By: GILLES Maldonado (Lipids Rate Change: Pending Order) 1 each N/A DAILY@0030 [facility] Stop: 02/14/22 00:29 Last Admin: 01/16/22 00:50 Dose: 1 each Documented By: Admin: 01/15/22 01:30 Dose: 1 each Documented By: RUMA Maldonado (Lipids Rate Change: Pending Order) 1 each N/A DAILY@0730 [facility] Stop: 02/14/22 07:29 Last Admin: 01/15/22 07:15 Dose: 1 each Documented By: RUMA Maldonado (Stop Order: Smof Lipid) 1 each N/A DAILY@0800 [facility] Stop: 02/14/22 07:59 Last Admin: 01/15/22 10:15 Dose: 1 each Documented By: MONICO Miscellaneous (Stop Order: Tpn) 1 each N/A DAILY@1500 [facility] Stop: 02/13/22 14:59 Last Admin: 01/15/22 15:26 Dose: 1 each Documented By: Admin: 01/14/22 14:58 Dose: 1 each Documented By: GILLES Ondansetron HCl (Ondansetron Inj 2 Mg/Ml 2 Ml Vial) 4 mg IV Q4H PRN PRN Reason: Nausea Stop: 02/13/22 09:31 Last Admin: 01/16/22 06:00 Dose: 4 mg Documented By: Admin: 01/15/22 21:10 Dose: 4 mg Documented By: Admin: 01/15/22 06:09 Dose: 4 mg Documented By: Admin: 01/14/22 21:11 Dose: 4 mg Documented By: Admin: 01/14/22 13:35 Dose: 4 mg Documented By: GILLES Pantoprazole Sodium (Pantoprazole 40 Mg Tab) 40 mg PO QAM [facility] Stop: 02/13/22 08:59 Last Admin: 01/15/22 10:19 Dose: 40 mg Documented By: Admin: 01/14/22 08:56 Dose: 40 mg Documented By: GILLES Simethicone (Simethicone 80 Mg Chew) 80 mg PO Q6H [facility] Stop: 02/13/22 11:59 Last Admin: 01/16/22 05:50 Dose: 80 mg Documented By: Admin: 01/15/22 23:45 Dose: 80 mg Documented By: Admin: 01/15/22 18:53 Dose: 80 mg Documented By: Admin: 01/15/22 14:34 Dose: 80 mg Documented By: Admin: 01/15/22 06:09 Dose: 80 mg Documented By: Admin: 01/15/22 00:23 Dose: 80 mg Documented By: Admin: 01/14/22 17:33 Dose: 80 mg Documented By: Admin: 01/14/22 13:28 Dose: 80 mg Documented By: GILLES
[2022-01-16] MEDS: [UNRECOGNIZED DRUG - REMARK] SCH (08:20)
[2022-01-16] MEDS: DICLOFENAC SOD 1% GEL 100 GM TUBE EXT SCH ×4 (09:36→21:09)
[2022-01-16] MEDS: FLUDROCORTISONE ACETATE 0.1 MG TAB PO SCH ×2 (09:37→21:08)
[2022-01-16] MEDS: FAMOTIDINE 20 MG TAB PO SCH ×2 (09:37→21:09)
[2022-01-16] MEDS: HYDROCORTISONE 10 MG TAB PO SCH ×2 (09:38→15:37)
[2022-01-16] MEDS: PANTOprazole 40 MG TAB PO SCH (09:39)
[2022-01-16] MEDS: GABAPENTIN 250 MG/5 ML 470 ML BTL PO SCH ×3 (10:09→21:09)
[2022-01-16 12:58] LABS: Ferritin 52.2 ng/ml (8-388)
[2022-01-16] MEDS: HEPARIN 100 UNIT/ML 5ML FLUSH FLUSH PRN (15:34)
[2022-01-16] MEDS: STOP ORDER: TPN SCH (15:38)
[2022-01-16] MEDS ORDERED: TRIMETHOBENZAMIDE HCL PO PRN (16:48)
--- NOTE | 2022-01-16 18:20 | Billing Data ---
Date of Service January 16, 2022 Coding Level of Care Code 39635 Subseq Hosp Care Lvl 2
[2022-01-16] MEDS ORDERED: CENTRAL PN IV SCH (21:00)
[2022-01-16] MEDS: FEXOFENADINE HCL 180 MG TAB PO SCH (21:08)
[2022-01-17] MEDS ORDERED: FAT EMUL/SOY/MCT/OLIV/FISH OIL 50 GM/250 ML BAG IV SCH
[2022-01-17] MEDS: LORazepam 0.5 MG in SYRINGE 0.25 ML IV PRN ×3 (00:28→17:24)
[2022-01-17] MEDS ORDERED: HYDROmorphone INJ 1 MG/ML SYRINGE IV STA (01:51)
[2022-01-17] MEDS ORDERED: HYDROmorphone INJ 1 MG/ML SYRINGE ONE (01:56)
[2022-01-17] MEDS: ONDANSETRON INJ 2 MG/ML 2 ML VIAL IV PRN ×4 (01:59→20:32)
[2022-01-17] MEDS: HEPARIN 100 UNIT/ML 5ML FLUSH FLUSH PRN ×2 (02:08→20:33)
[2022-01-17] MEDS: SODIUM CHLORIDE 0.9% 1000ML 1,000 ML IV SCH ×3 (03:54→19:39)
[2022-01-17] MEDS: DICYCLOMINE HCL 10 MG CAP PO PRN (04:09)
[2022-01-17] MEDS: SIMETHICONE 80 MG CHEW PO SCH ×3 (05:42→18:52)
[2022-01-17 06:24] LABS: BUN Creatinine Ratio 21.7 (10-20); Calcium 8.4 mg/dl (8.5-10.1); Creatinine Clr Calc Pharmacy 106.1 ml/min; Est GFR (African American) 142.8 ml/min; Est GFR (Non-African American) 123.2 ml/min; Magnesium 2.1 mg/dl (1.7-2.4); Phosphorus 3.4 mg/dl (2.5-4.9); Potassium 3.8 mmol/L (3.5-5.1)
--- NOTE | 2022-01-17 07:53 | Hospitalist Progress Note ---
Date of Service January 17, 2022 Assessment & Plan (1) Abdominal pain, chronic, generalized: Plan: Pt is a 31 yo female with PMH of gastroparesis, SMA syndrome, adrenal insufficiency, and multiple abdominal surgeries including cholecystectomy, bowel resection with ileostomy, hysterectomy presenting with increasing abdominal pain and blood/mucous per rectum and ileostomy site. 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 currently at 0.25 mg q20 min (changed from q15 min yesterday) - discussed going to PRN dosing, but pt still in 10/25 pain today - SCFA enemas to be compounded by [facility] (pt's mom requested 3 weeks instead of 6 weeks worth) Nausea - improved with simethicone - continue zofran - G tube venting as needed Adrenal insufficiency - continue home regimen (2) Adrenal insufficiency: (3) Gastroparesis: (4) Gastrostomy tube in place: (5) Intestinal motility disorder: (6) Nausea: (7) On total parenteral nutrition (TPN): (8) SMAS (superior mesenteric artery syndrome): Plan FEN: regular diet, PO intake as tolerated Code status: full code DVT ppx: SCDs Consults: GI, PT/OT Dispo: med/surg Admission and Anticipated Discharge Date Admission Date: January 15, 2022 Subjective Pt. is 31 yo F with PMH of extensive abdominal/bowel surgeries here for abdominal pain, nausea, and rectal bleeding s/p colonoscopy. 01/15/2022: Pt. reports improved pain and nausea from our last evaluation ~ 20 hours ago, with no additional abdominal pain, shortness of breath, chest pain, or other symptoms at this time. 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 She is interested in the possibility of short chain fatty acids enema. She will work with the case management team to determine insurance coverage to obtain this treatment. 01/16/2022: Pt. experienced intense abdominal pain this morning from midnight until 02:00. The pain was the same as that she presented with originally, and it resolved spontaneously. Since then, her pain and nausea have improved and rectal bleeding has stopped. She has tolerated a slow intake of PO clear liquids (iced tea, water) over the last 24 hours. Gave consent to get more info from [facility]. short chain fatty acid enemas. 01/17/2022: Pt had an episode of extreme abdominal pain overnight that was described as "twisting." A CT was obtained and did not show any significant change from 01/14. Pt's pain this morning was 6/10. She did not feel well enough to decrease her pain medications or switch to PRN dosing. Pt's mother explained that [facility] called and they will be getting the SCFA enemas hopefully next week. Physical Exam Constitutional: NAD. Vitals WNL. Eyes: no conjunctival abnormality Respiratory: CTA bilaterally. No rhonchi, wheezing, or crackles. Non labored breathing. Cardiovascular: RRR. No murmur noted. No LL edema. Gastrointestinal (Abdomen): Diffuse tenderness, +BS. No guarding or rebound tenderness. No masses noted. Skin: no rashes, warm and dry Psychiatric: Alert. Mood and affect congruent. Results & Data Results & Data ([facility]) Vital Signs (Past 12 Hours) Vital Signs Temp Pulse Resp BP Pulse Ox O2 Del Method 01/17/22 07:48 36.8 C 107 H 13 95/61 L 96 Room Air 01/17/22 03:53 36.6 C 88 16 105/68 98 Room Air 01/17/22 00:08 37 C 79 18 123/77 99 Room Air Resident Activity Tracking Resident Involvement: Resident Care Provided Care Provided: Adult Hospital Medicine
[2022-01-17] MEDS: [UNRECOGNIZED DRUG - REMARK] SCH (08:34)
[2022-01-17] MEDS: FAMOTIDINE 20 MG TAB PO SCH ×2 (08:35→20:27)
[2022-01-17] MEDS: DICLOFENAC SOD 1% GEL 100 GM TUBE EXT SCH ×4 (08:35→21:25)
--- NOTE | 2022-01-17 08:35 | CT Scan Report ---
CT SCAN OF THE ABDOMEN AND PELVIS WITHOUT IV CONTRAST CLINICAL HISTORY: Acute generalized abdominal pain. COMPARISON STUDY: Abdominal CT dated 01/14/2022. TECHNIQUE: CT scan of the abdomen and pelvis is performed from the lung bases to the proximal femora. Images are reviewed in the axial, sagittal, and coronal planes. IV contrast was not administered for this examination as per the referring clinician. Note that the examination was performed in suboptim al fashion without oral and IV contrast. A dose lowering technique was utilized adhering to the princ iplkatarzyna of DAVID. CT DOSE: 257.70 mGy.cm FINDINGS: Lung bases: The heart is normal in size and without pericardial effusion. The lung bases are clear. Liver: The unenhanced liver is normal in size, contour, and attenuation. There is no intrahepatic emani iary ductal dilatation. Gallbladder: Surgically absent noting clips in the gallbladder fossa. Spleen: Normal in size and attenuation. Pancreas: Unremarkable. Adrenal glands: Unremarkable. Kidneys: The unenhanced kidneys are normal in size and without hydronephrosis. There are no renal mary anne culi identified. There is no evidence of contour deforming renal mass lesion. Abdominal vasculature: The abdominal aorta is normal in course and caliber. Stomach and bowel: A percutaneous gastrostomy tube is in place. Mild wall thickening of the gastric a ntrum is again suggested. A right lower quadrant ileostomy is again noted. There is no bowel obstruct ion. Residual hyperdense material versus enteric contrast is noted in the right colon. The appendix i s not identified and reported surgically absent. Peritoneum: There is no intraperitoneal free air or abdominal ascites. Lymphadenopathy: None. Pelvic viscera: The bladder is normal as visualized. The uterus is surgically absent. A dominant foll icle is again noted in the left ovary. Trace free fluid is seen in the cul-de-sac. Skeletal structures: No lytic or blastic lesions are seen. IMPRESSION: 1. Suboptimal examination without oral and IV contrast. 2. No significant change from 01/14/2022. 3. Again seen is a gastrostomy tube and postsurgical change of right lower quadrant ileostomy. 4. There is no bowel obstruction. 5. Mild wall thickening of the distal stomach is unchanged. 6. Trace free fluid in the cul-de-sac is nonspecific and likely physiologic. ACT 112: Negative or not required by law. Electronically signed by: Kirk Burgos M.D. 01/17/2022 8:33 AM
[2022-01-17] MEDS: HYDROCORTISONE 10 MG TAB PO SCH ×2 (08:36→13:50)
[2022-01-17] MEDS: FLUDROCORTISONE ACETATE 0.1 MG TAB PO SCH ×2 (08:36→20:28)
[2022-01-17] MEDS: PANTOprazole 40 MG TAB PO SCH (08:37)
[2022-01-17] MEDS: GABAPENTIN 250 MG/5 ML 470 ML BTL PO SCH ×3 (08:57→20:32)
[2022-01-17] MEDS: HYDROmorphone INJ 0.5 MG/0.5 ML SYR IV PRN ×2 (15:16→20:49)
[2022-01-17] MEDS: STOP ORDER: TPN SCH (15:58)
--- NOTE | 2022-01-17 16:31 | Medical Student Progress Note ---
Date of Service January 17, 2022 Assessment & Plan (1) Abdominal pain, chronic, generalized: Plan: Pt is a 31 yo female with PMH of gastroparesis, SMA syndrome, adrenal insufficiency, and multiple abdominal surgeries including cholecystectomy, bowel resection with ileostomy, hysterectomy presenting with increasing abdominal pain and blood/mucous per rectum and ileostomy site. Abdominal pain, bloody mucus per rectum - Vitals stable, no lab abnormalities - CTAP w/ contrast (01/14): no evidence of obstruction; G-tube and R-sided ileostomy noted; colon collapsed; rectum mostly collapsed without surrounding edema; no free air or significant free fluid; no loculated fluid collection - CTAP w/o contrast (01/17): no significant change from 01/14 - SCRUB TECH pump currently at 0.25 mg q20 min (changed from q15 min yesterday), added 0.25 Q4h PRN today for breakthrough pain - Discussed going to PRN dosing, but pt still in 6/10 pain today - SCFA enemas to be compounded by [facility] (pt's mom requested 3 weeks instead of 6 weeks worth) - Continue home GI regimen Nausea - Improved with simethicone - Continue Zofran - G tube venting as needed Adrenal insufficiency - Continue home regimen Severe protein-calorie malnutrition The medical record reflects the following clinical evidence: Clinical Indicators: Weight 48.2 kg, BMI 17 Risk Factor(s): Gastroparesis, intestinal motility disorder, superior mesenteric artery syndrome Treatment: Daily weights, I's and O's, TPN, GI consultation Dispo: Med/surg DVT ppx: SCDs Diet: TPN, PO as tolerated Code: Full (2) Adrenal insufficiency: (3) Gastroparesis: (4) Gastrostomy tube in place: (5) Intestinal motility disorder: (6) Nausea: (7) On total parenteral nutrition (TPN): (8) SMAS (superior mesenteric artery syndrome): Plan FEN: regular diet, PO intake as tolerated Code status: full code DVT ppx: SCDs Consults: GI, PT/OT Dispo: med/surg Admission and Anticipated Discharge Date Admission Date: January 15, 2022 Supervising Attestation Patient seen and examined, chart reviewed, case discussed with Christine ye DO, and Nina Nicole and I agree with the assessment and plan as above except as otherwise noted Labs and images reviewed Seen at bedside today. Tearful, wanted to trial a dose decrease in her SCRUB TECH, to has had substantially increased pain attempted move from 0.3 2.25 q. 20. Patient is tearful affect, tender focally in the abdomen without rebound, breathing is unlabored with clear lungs, heart rate is regular. Overall no other change. Repeat CT showed no acute change.Will increase SCRUB TECH back to hydromorphone 0.3 mg q. 20 minutes, and continue to follow. Agree with other m anagement as above Subjective Pt. is 31 yo F with PMH of extensive abdominal/bowel surgeries here for abdominal pain, nausea, and rectal bleeding s/p colonoscopy. 01/15/2022: Pt. reports improved pain and nausea from our last evaluation ~ 20 hours ago, with no additional abdominal pain, shortness of breath, chest pain, or other symptoms at this time. 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 She is interested in the possibility of short chain fatty acids enema. She will work with the case management team to determine insurance coverage to obtain this treatment. 01/16/2022: Pt. experienced intense abdominal pain this morning from midnight until 02:00. The pain was the same as that she presented with originally, and it resolved spontaneously. Since then, her pain and nausea have improved and rectal bleeding has stopped. She has tolerated a slow intake of PO clear liquids (iced tea, water) over the last 24 hours. Gave consent to get more info from [place] karina. short chain fatty acid enemas. 01/17/2022: Pt had an episode of extreme abdominal pain overnight that was described as "twisting." A CT was obtained and did not show any significant change from 01/14. Pt's pain this morning was 6/10. She does not feel well enough to decrease her pain medications at this time. Pt's mother explained that [facility] called and they will be getting the SCFA enemas hopefully next week. Review of Systems Review of Systems: See HPI. Cardiovascular: Additional Comments: No chest pain, palpitations, shortness of breath, or lightheadedness. Gastrointestinal: No new abdominal pain. Physical Exam Constitutional: well developed Eyes: no conjunctival abnormality Respiratory: normal respiratory effort Cardiovascular: RRR, no murmur, no edema Musculoskeletal: Head/Neck/Chest: normocephalic Skin: no rashes, warm and dry Psychiatric: Orientation: alert and oriented x 3 Results & Data ([facility]) Vital Signs (Past 12 Hours) Vital Signs Temp Pulse Resp BP Pulse Ox O2 Del Method 01/17/22 15:12 36.8 C 90 12 101/67 100 Room Air 01/17/22 12:31 36.8 C 102 H 13 103/70 99 Room Air 01/17/22 07:48 36.8 C 107 H 13 95/61 L 96 Room Air Laboratory Results 01/17/22 01/17/22 01/17/22 11:36 05:44 05:38 Sodium 138 Potassium 3.8 Chloride 107 Carbon Dioxide 26 Anion Gap 5 BUN 13 Creatinine 0.60 Est Cr Clr Drug Dosing 106.1 Est GFR ( Amer) 142.8 Est GFR (Non-Af Amer) 123.2 BUN/Creatinine Ratio 21.7 H Glucose 101 H POC Glucose 101 H 104 H Calcium 8.4 L Phosphorus 3.4 Magnesium 2.1 01/17/22 01/16/22 00:42 18:23 Sodium Potassium Chloride Carbon Dioxide Anion Gap BUN Creatinine Est Cr Clr Drug Dosing Est GFR ( Amer) Est GFR (Non-Af Amer) BUN/Creatinine Ratio Glucose POC Glucose 110 H 104 H Calcium Phosphorus Magnesium Medications Administered Diclofenac Sodium (Diclofenac Sod 1% Gel 100 Gm Tube) 2 gm EXT QID EMERALD; Protocol Stop: 02/14/22 08:59 Last Admin: 01/17/22 12:23 Dose: Not Given Documented By: Admin: 01/17/22 08:35 Dose: Not Given Documented By: Admin: 01/16/22 21:09 Dose: Not Given Documented By: Admin: 01/16/22 17:16 Dose: Not Given Documented By: Admin: 01/16/22 13:11 Dose: Not Given Documented By: Admin: 01/16/22 09:36 Dose: Not Given Documented By: Admin: 01/15/22 21:11 Dose: Not Given Documented By: Admin: 01/15/22 18:10 Dose: Not Given Documented By: Admin: 01/15/22 14:30 Dose: Not Given Documented By: Admin: 01/15/22 10:19 Dose: Not Given Documented By: MONICO Dicyclomine HCl (Dicyclomine Hcl 10 Mg Cap) 20 mg PO Q6H PRN PRN Reason: Abdominal Pain Stop: 02/13/22 05:35 Last Admin: 01/17/22 04:09 Dose: 20 mg Documented By: Admin: 01/16/22 22:15 Dose: 20 mg Documented By: RUMA Famotidine (Famotidine 20 Mg Tab) 20 mg PO BID EMERALD Stop: 02/13/22 08:59 Last Admin: 01/17/22 08:35 Dose: 20 mg Documented By: Admin: 01/16/22 21:09 Dose: 20 mg Documented By: Admin: 01/16/22 09:37 Dose: 20 mg Documented By: Admin: 01/15/22 21:11 Dose: 20 mg Documented By: Admin: 01/15/22 10:16 Dose: 20 mg Documented By: Admin: 01/14/22 21:11 Dose: 20 mg Documented By: Admin: 01/14/22 08:54 Dose: 20 mg Documented By: GILLES Fexofenadine HCl (Fexofenadine Hcl 180 Mg Tab) 180 mg PO PM EMERALD Stop: 02/13/22 20:59 Last Admin: 01/16/22 21:08 Dose: 180 mg Documented By: Admin: 01/15/22 21:11 Dose: 180 mg Documented By: Admin: 01/14/22 21:11 Dose: 180 mg Documented By: RUMA Fludrocortisone Acetate (Fludrocortisone Acetate 0.1 Mg Tab) 0.2 mg PO QAM EMERALD Stop: 02/13/22 08:59 Last Admin: 01/17/22 08:36 Dose: 0.2 mg Documented By: Admin: 01/16/22 09:37 Dose: 0.2 mg Documented By: Admin: 01/15/22 10:16 Dose: 0.2 mg Documented By: Admin: 01/14/22 08:54 Dose: 0.2 mg Documented By: GILLES Fludrocortisone Acetate (Fludrocortisone Acetate 0.1 Mg Tab) 0.1 mg PO QPM EMERALD Stop: 02/13/22 20:59 Last Admin: 01/16/22 21:08 Dose: 0.1 mg Documented By: Admin: 01/15/22 21:11 Dose: 0.1 mg Documented By: Admin: 01/14/22 21:11 Dose: 0.1 mg Documented By: RUMA Gabapentin (Gabapentin 250 Mg/5 Ml 470 Ml Btl) 300 mg PO TID EMERALD Stop: 02/13/22 08:59 Last Admin: 01/17/22 13:49 Dose: 300 mg Documented By: Admin: 01/17/22 08:57 Dose: 300 mg Documented By: Admin: 01/16/22 21:09 Dose: 300 mg Documented By: Admin: 01/16/22 15:37 Dose: 300 mg Documented By: Admin: 01/16/22 10:09 Dose: 300 mg Documented By: Admin: 01/15/22 21:11 Dose: 300 mg Documented By: Admin: 01/15/22 15:27 Dose: 300 mg Documented By: Admin: 01/15/22 10:23 Dose: 300 mg Documented By: Admin: 01/14/22 21:11 Dose: 300 mg Documented By: Admin: 01/14/22 13:29 Dose: Not Given Documented By: Admin: 01/14/22 08:56 Dose: 300 mg Documented By: GILLES Heparin Sodium (Porcine) (Heparin 100 Unit/Ml 5ml Flush) 5 ml FLUSH PRN PRN PRN Reason: Flush Stop: 02/13/22 14:58 Last Admin: 01/17/22 02:08 Dose: 5 ml Documented By: Admin: 01/16/22 15:34 Dose: 5 ml Documented By: Admin: 01/15/22 15:25 Dose: 5 ml Documented By: MONICO Hydrocortisone (Hydrocortisone 10 Mg Tab) 10 mg PO Q24H EMERALD Stop: 02/13/22 13:59 Last Admin: 01/17/22 13:50 Dose: 10 mg Documented By: Admin: 01/16/22 15:37 Dose: 10 mg Documented By: Admin: 01/15/22 14:31 Dose: 10 mg Documented By: Admin: 01/14/22 13:29 Dose: 10 mg Documented By: GILLES Hydrocortisone (Hydrocortisone 10 Mg Tab) 15 mg PO QAM EMERALD Stop: 02/13/22 08:59 Last Admin: 01/17/22 08:36 Dose: 15 mg Documented By: Admin: 01/16/22 09:38 Dose: 15 mg Documented By: Admin: 01/15/22 10:18 Dose: 15 mg Documented By: Admin: 01/14/22 08:55 Dose: 15 mg Documented By: GILLES Hydromorphone HCl (Hydromorphone Surgical Dental Assistant 30 Mg/30 Ml) 30 mg IV PRN PRN; Protocol PRN Reason: SCRUB TECH Pain Titration Stop: 01/28/22 16:30 Last Admin: 01/14/22 17:55 Dose: 30 mg Documented By: GILLES Co-signed By: JELENA Hydromorphone HCl (Hydromorphone Inj 0.5 Mg/0.5 Ml Syr) 0.25 mg IV Q4H PRN PRN Reason: Pain Stop: 01/31/22 14:23 Last Admin: 01/17/22 15:16 Dose: 0.25 mg Documented By: MONICO Lorazepam 0.5 mg/ Syringe 0.5 mls @ 2 mls/min IV Q6H PRN PRN Reason: Anxiety or nausea Stop: 02/13/22 09:29 Last Admin: 01/17/22 08:57 Dose: 2 mls/min Documented By: Admin: 01/17/22 00:28 Dose: 2 mls/min Documented By: Admin: 01/16/22 18:28 Dose: 2 mls/min Documented By: Admin: 01/16/22 10:30 Dose: 2 mls/min Documented By: Admin: 01/16/22 00:50 Dose: 2 mls/min Documented By: Admin: 01/15/22 18:41 Dose: 2 mls/min Documented By: Admin: 01/15/22 11:09 Dose: 2 mls/min Documented By: Admin: 01/15/22 00:32 Dose: 2 mls/min Documented By: Admin: 01/14/22 17:32 Dose: 2 mls/min Documented By: Admin: 01/14/22 09:47 Dose: 2 mls/min Documented By: GILLES Sodium Chloride (Nss 1000ml) 1,000 mls @ 15 mls/hr IV .Q24H EMERALD Stop: 01/28/22 16:31 Last Admin: 01/17/22 06:06 Dose: 15 mls/hr Documented By: Infusion: 01/17/22 06:06 Dose: 15 mls/hr Documented By: Infusion: 01/17/22 05:52 Dose: 15 mls/hr Documented By: Admin: 01/17/22 03:54 Dose: Not Given Documented By: Infusion: 01/16/22 06:22 Dose: 15 mls/hr Documented By: Infusion: 01/15/22 06:27 Dose: 15 mls/hr Documented By: Admin: 01/14/22 17:55 Dose: 15 mls/hr Documented By: GILLES Maldonado (Tpn Rate Change: Pending Order) 1 each N/A DAILY@1400 [facility] Stop: 02/13/22 13:59 Last Admin: 01/17/22 13:50 Dose: 1 each Documented By: Admin: 01/16/22 13:56 Dose: 1 each Documented By: Admin: 01/15/22 14:32 Dose: 1 each Documented By: Admin: 01/14/22 14:57 Dose: 1 each Documented By: GILLES Maldonado (Tpn Rate Change: Pending Order) 1 each N/A DAILY@2200 [facility] Stop: 02/13/22 21:59 Last Admin: 01/16/22 22:15 Dose: 1 each Documented By: Admin: 01/15/22 22:20 Dose: 1 each Documented By: Admin: 01/14/22 22:22 Dose: 1 each Documented By: RUMA Maldonado (Lipids Rate Change: Pending Order) 1 each N/A DAILY@0030 [facility] Stop: 02/14/22 00:29 Last Admin: 01/17/22 00:28 Dose: 1 each Documented By: Admin: 01/16/22 00:50 Dose: 1 each Documented By: Admin: 01/15/22 01:30 Dose: 1 each Documented By: RUMA Maldonado (Lipids Rate Change: Pending Order) 1 each N/A DAILY@0730 [facility] Stop: 02/14/22 07:29 Last Admin: 01/17/22 08:56 Dose: 1 each Documented By: Admin: 01/16/22 07:45 Dose: 1 each Documented By: Admin: 01/15/22 07:15 Dose: 1 each Documented By: RUMA Maldonado (Stop Order: Smof Lipid) 1 each N/A DAILY@0800 EMERALD Stop: 02/14/22 07:59 Last Admin: 01/17/22 08:34 Dose: 1 each Documented By: Admin: 01/16/22 08:20 Dose: 1 each Documented By: Admin: 01/15/22 10:15 Dose: 1 each Documented By: MONICO Maldonado (Stop Order: Tpn) 1 each N/A DAILY@1500 EMERALD Stop: 02/13/22 14:59 Last Admin: 01/17/22 15:58 Dose: 1 each Documented By: Admin: 01/16/22 15:38 Dose: 1 each Documented By: Admin: 01/15/22 15:26 Dose: 1 each Documented By: Admin: 01/14/22 14:58 Dose: 1 each Documented By: GILLES Maldonado (Order Awaiting Action: Patient's Own Tpn) 1 each N/A DAILY@1100 EMERALD Stop: 02/13/22 13:59 Last Admin: 01/17/22 12:23 Dose: 1 each Documented By: Admin: 01/16/22 13:10 Dose: 1 each Documented By: MONICO Ondansetron HCl (Ondansetron Inj 2 Mg/Ml 2 Ml Vial) 4 mg IV Q4H PRN PRN Reason: Nausea Stop: 02/13/22 09:31 Last Admin: 01/17/22 13:45 Dose: 4 mg Documented By: Admin: 01/17/22 06:02 Dose: 4 mg Documented By: Admin: 01/17/22 01:59 Dose: 4 mg Documented By: Admin: 01/16/22 21:08 Dose: 4 mg Documented By: Admin: 01/16/22 16:26 Dose: 4 mg Documented By: Admin: 01/16/22 06:00 Dose: 4 mg Documented By: Admin: 01/15/22 21:10 Dose: 4 mg Documented By: Admin: 01/15/22 06:09 Dose: 4 mg Documented By: Admin: 01/14/22 21:11 Dose: 4 mg Documented By: Admin: 01/14/22 13:35 Dose: 4 mg Documented By: GILLES Pantoprazole Sodium (Pantoprazole 40 Mg Tab) 40 mg PO QAM EMERALD Stop: 02/13/22 08:59 Last Admin: 01/17/22 08:37 Dose: 40 mg Documented By: Admin: 01/16/22 09:39 Dose: 40 mg Documented By: Admin: 01/15/22 10:19 Dose: 40 mg Documented By: Admin: 01/14/22 08:56 Dose: 40 mg Documented By: GILLES Simethicone (Simethicone 80 Mg Chew) 80 mg PO Q6H EMERALD Stop: 02/13/22 11:59 Last Admin: 01/17/22 12:23 Dose: 80 mg Documented By: Admin: 01/17/22 05:42 Dose: 80 mg Documented By: Admin: 01/16/22 23:36 Dose: 80 mg Documented By: Admin: 01/16/22 17:17 Dose: 80 mg Documented By: Admin: 01/16/22 13:10 Dose: 80 mg Documented By: Admin: 01/16/22 05:50 Dose: 80 mg Documented By: Admin: 01/15/22 23:45 Dose: 80 mg Documented By: Admin: 01/15/22 18:53 Dose: 80 mg Documented By: Admin: 01/15/22 14:34 Dose: 80 mg Documented By: Admin: 01/15/22 06:09 Dose: 80 mg Documented By: Admin: 01/15/22 00:23 Dose: 80 mg Documented By: Admin: 01/14/22 17:33 Dose: 80 mg Documented By: Admin: 01/14/22 13:28 Dose: 80 mg Documented By: GILLES
--- NOTE | 2022-01-17 16:46 | Billing Data ---
Date of Service January 17, 2022 Coding Level of Care Code 48266 Initial Inpt Care Lvl 2
[2022-01-17] MEDS: HYDROmorphone PCA 30 MG/30 ML IV PRN (17:42)
--- NOTE | 2022-01-17 18:42 | Billing Data ---
Date of Service 2021 Coding Level of Care Code 59537 Subseq Hosp Care Lvl 3
[2022-01-17] MEDS: FEXOFENADINE HCL 180 MG TAB PO SCH (20:28)
[2022-01-17] MEDS ORDERED: CENTRAL PN IV SCH ×2 (21:00)
[2022-01-18] MEDS ORDERED: FAT EMUL/SOY/MCT/OLIV/FISH OIL 50 GM/250 ML BAG IV SCH
[2022-01-18] MEDS: LORazepam 0.5 MG in SYRINGE 0.25 ML IV PRN ×3 (00:23→14:52)
[2022-01-18] MEDS: SIMETHICONE 80 MG CHEW PO SCH ×4 (00:30→18:22)
[2022-01-18] MEDS: HEPARIN 100 UNIT/ML 5ML FLUSH FLUSH PRN ×2 (00:30→15:01)
[2022-01-18] MEDS ORDERED: oxyCODONE HCL IR 5 MG TAB (IMMEDIATE RELEASE) PO STA (01:08)
[2022-01-18] MEDS ORDERED: HYDROmorphone INJ 0.5 MG/0.5 ML SYR IV STA (01:35)
[2022-01-18] MEDS: DICYCLOMINE HCL 10 MG CAP PO PRN ×2 (02:19→22:31)
[2022-01-18] MEDS: ONDANSETRON INJ 2 MG/ML 2 ML VIAL IV PRN ×4 (02:19→22:31)
[2022-01-18] MEDS: [UNRECOGNIZED DRUG - REMARK] SCH (08:10)
[2022-01-18] MEDS: FAMOTIDINE 20 MG TAB PO SCH ×2 (08:19→21:19)
[2022-01-18] MEDS: HYDROCORTISONE 10 MG TAB PO SCH ×2 (08:19→13:38)
[2022-01-18] MEDS: DICLOFENAC SOD 1% GEL 100 GM TUBE EXT SCH ×4 (08:19→21:18)
[2022-01-18] MEDS: FLUDROCORTISONE ACETATE 0.1 MG TAB PO SCH ×2 (08:19→21:20)
[2022-01-18] MEDS: GABAPENTIN 250 MG/5 ML 470 ML BTL PO SCH ×3 (08:19→21:20)
[2022-01-18] MEDS: PANTOprazole 40 MG TAB PO SCH (08:19)
[2022-01-18 08:29] LABS: Hematocrit (blood only) 34.1 % (34.1-44.9); Hemoglobin 11.4 g/dl (12.0-16.0); Mean Corpuscular Hemoglobin 31.9 pg (25.0-34.0); Mean Corpuscular Hgb Conc 33.4 g/dL (32.0-36.0); Mean Corpuscular Volume 95.5 fL (80.0-100.0); Platelet Count 242 K/uL (130-400); RDW Coefficient of Variation 11.9 % (11.5-14.5); Red Blood Count 3.57 M/uL (3.93-5.22); White Blood Count 6.97 K/ul (4.8-10.8)
[2022-01-18 08:48] LABS: BUN Creatinine Ratio 26.3 (10-20); Calcium 8.5 mg/dl (8.5-10.1); Creatinine Clr Calc Pharmacy 111.7 ml/min; Est GFR (African American) 145.2 ml/min; Est GFR (Non-African American) 125.3 ml/min; Magnesium 2.2 mg/dl (1.7-2.4); Phosphorus 3.5 mg/dl (2.5-4.9)
--- NOTE | 2022-01-18 08:50 | Hospitalist Progress Note ---
Date of Service January 18, 2022 Assessment & Plan (1) Abdominal pain, chronic, generalized: Plan: Pilar is a 31 year old female with history of gastroparesis, SMA syndrome, adrenal insufficiency, and multiple abdominal surgeries (bowel resection, illeostomy, hysterectomy 2/2 endometriosis) who was admitted for increasing abdominal pain, blood per rectum, and blood per ostomy site following a colonoscopy. Abdominal Pain w/ associated blood per ostomy and rectum - Vital signs remain stable, Hgb 11.4 (from 11.9, will monitor) - Abdominal Ultrasound without evidence of intussuception - [employer] Pump adjusted 01/18: [employer] Dose 0.3 mg, Lock Out 15 minutes, Continuous Dose 0, 1 hour max optional - Continue Dilaudid 0.25 mg Q4H PRN for breakthrough pain - SCFA in process by [facility] Nausea - Improved with simethicone - Continue Zofran - G tube venting as needed Adrenal insufficiency - Continue home regimen Severe protein-calorie malnutrition - Weight 48.2 kg, BMI 17 - Risk 2/2 gastroparesis, SMA syndrome, chronic pain, nausea - Recommend continuation of daily weights, I/Os, and TPN - GI consultation placed 01/14 * Advised monitoring of H&H for worsening bleeding * Recommended scheduled simethicone * Indicated potential for discomfort 2/2 colonoscopy 2/2 trapped air * Indicated possible presence of diversion colitis * Low threshold for transferring patient to GI team at [facility] if clinical picture worsens (2) Adrenal insufficiency: (3) Gastroparesis: (4) Gastrostomy tube in place: (5) Intestinal motility disorder: (6) Nausea: (7) On total parenteral nutrition (TPN): (8) SMAS (superior mesenteric artery syndrome): Plan Dispo: Med/surg DVT ppx: SCDs Diet: TPN, PO as tolerated Code: Full Admission and Anticipated Discharge Date Admission Date: January 15, 2022 Supervising Physician Co-Signing Physician Notes Patient seen and examined, chart reviewed, case discussed with Jodie Max DO and I agree with the assessment and plan as above except as otherwise noted Labs and images reviewed Female seen at the bedside. Had severe pain in the same spot that she has been having pain last night, with a twisting pain. Dilaudid did help, but took some time to receive this. Did have some broth last night, and has intact output from her ostomy. Ostomy with increased swelling. No fever/chill s/sweats/lightheadedness/dizziness. On exam abdomen is focally tender in the mid and left lower quadrant abdomen, no rebound. Ostomy is in place, swollen and pink. Lungs are clear to auscultation bilaterally, heart rate is regular. 31-year-old female with no pain, suspected 2/[address] yesterday without acute findings, although suboptimal without contrast. Lactate pended Patient with increased pain overnight, had a time delay to receive her medications Continue pain regimen, patient with inadequate pain control today and not yet ready for conversion to intermittent dosing Describes pain with a twisting quality. Patient does have a history of intussusception, and had an episode of twisting breakthrough pain at assessment, ultrasound ordered. With breakthrough pain [employer] dosing changed from 0.3 every 20 minutes to 0.3 every 15 minutes No gross electrolyte abnormalities today Hemoglobin 11.4 Agree with other management as above Subjective Pilar is a 31 year old female with history of gastroparesis, SMA syndrome, adrenal insufficiency, and multiple abdominal surgeries (bowel resection, ill eostomy, hysterectomy 2/2 endometriosis) who was admitted for increasing abdominal pain, blood per rectum, and blood per ostomy site following a colonoscopy. Today 01/18/22: - Patient seen at bedside today with mother present, resting comfortably upon arrival - Patient notes that last night was rough - she had very intense pain and nausea in the middle of her abdomen and LLQ (surrounding her ileostomy) - Patient notes her history of intussusception and is concerned that this feels similar to her previous episode - Patient notes an ongoing 'twisting' sensation around her stoma site - she states that her stoma has been retracted for the last year, but overall has remained pink and healthy - Overnight she received a dose of Dilaudid which controlled her symptoms - Patient ate broth and crackers for dinner last night, but notes that her diet has been primarily liquids - Pilar endorses continued liquid output from her ostomy site without blood o r mucous - She has also not experienced blood per rectum - She denies chest pain, dyspnea, or lightheadedness Patient's mother notes that they plan to proceed with SCFA enemas to help with her colon inflammation and that they are in the process of getting them compounded. Patient and mother requested additional information regarding SCFA. Review of Systems Review of Systems: See HPI. Physical Exam Physical Exam: Gen: NAD, interactive, fatigued Resp:Non-labored, no wheezing/rhonchi/rales, CTAB CV:RRR, normal S1/S2, no M/R/G Abd: Soft, non-distended, TTP in central abdomen and LLQ, no rebound tenderness or peritoneal signs, hypoactive bowels, no masses No erythema or edema around PEG site or stoma. Extr: 2+ dp bilaterally, no edema Skin: No rashes lesions or erythema Results & Data Results & Data ([facility]) Vital Signs (Past 12 Hours) Vital Signs Temp Pulse Resp BP Pulse Ox O2 Del Method 01/18/22 07:35 36.4 C L 94 H 16 96/62 L 98 Room Air 01/18/22 03:58 36.4 C L 86 14 104/69 100 Room Air 01/17/22 22:52 36.7 C 81 18 114/83 99 Room Air Diagnostic Findings Abdominal Ultrasound 01/18/22 IMPRESSION: No evidence for intussusception. CT Abdomen and Pelvis 01/17/22 IMPRESSION: 1. Suboptimal examination without oral and IV contrast. 2. No significant change from 01/14/2022. 3. Again seen is a gastrostomy tube and postsurgical change of right lower quadrant ileostomy. 4. There is no bowel obstruction. 5. Mild wall thickening of the distal stomach is unchanged. 6. Trace free fluid in the cul-de-sac is nonspecific and likely physiologic. CT Abdomen and Pelvis 01/14/22 IMPRESSION: 1. Overall, no significant change compared to the prior study. 2. Mild thickening of the gastric antrum, unchanged. There is no adjacent inflammatory change to suggest an acute process. This may be reactive to the indwelling gastrostomy tube which appears in good position. 3. No evidence for bowel obstruction. 4. Right lower quadrant ileostomy again noted. Resident Activity Tracking Resident Involvement: Resident Care Provided Care Provided: [facility] Medicine
--- NOTE | 2022-01-18 14:46 | Billing Data ---
Date of Service January 18, 2022 Coding Level of Care Code 03682 Subseq Hosp Care Lvl 2
[2022-01-18] MEDS: HYDROmorphone INJ 0.5 MG/0.5 ML SYR IV PRN ×2 (14:52→22:37)
[2022-01-18] MEDS: STOP ORDER: TPN SCH (15:01)
--- NOTE | 2022-01-18 15:52 | Ultrasound Report ---
US abd ltd intussusception CLINICAL HISTORY: twisting ab pain, hx intussusception COMPARISON STUDY: Abdomen and pelvis CT 01/17/2022. FINDINGS: Real-time sonographic imaging of the abdomen was performed with sales representative livestock images submi tted. No evidence for intussusception. No dilated loops of bowel identified. No fluid collections. IMPRESSION: No evidence for intussusception. ACT 112: Negative or not required by law. Electronically signed by: Victor Hugo Snowden M.D. 01/18/2022 3:51 PM
[2022-01-18] MEDS ORDERED: CENTRAL PN IV SCH (21:00)
[2022-01-18] MEDS: SODIUM CHLORIDE 0.9% 1000ML 1,000 ML IV SCH (21:18)
[2022-01-18] MEDS: FEXOFENADINE HCL 180 MG TAB PO SCH (21:19)
[2022-01-19] MEDS ORDERED: FAT EMUL/SOY/MCT/OLIV/FISH OIL 50 GM/250 ML BAG IV SCH
[2022-01-19] MEDS: SIMETHICONE 80 MG CHEW PO SCH ×4 (00:05→17:32)
[2022-01-19] MEDS ORDERED: HYDROmorphone INJ 0.5 MG/0.5 ML SYR IV STA ×2 (01:11→22:35)
[2022-01-19] MEDS: ONDANSETRON INJ 2 MG/ML 2 ML VIAL IV PRN ×3 (04:13→22:18)
[2022-01-19 07:25] LABS: Hematocrit (blood only) 33.1 % (34.1-44.9); Hemoglobin 11.1 g/dl (12.0-16.0); Mean Corpuscular Hemoglobin 32.2 pg (25.0-34.0); Mean Corpuscular Hgb Conc 33.5 g/dL (32.0-36.0); Mean Corpuscular Volume 95.9 fL (80.0-100.0); Mean Platelet Volume 10.8 fL (9.4-12.3); Platelet Count 238 K/uL (130-400); RDW Coefficient of Variation 11.7 % (11.5-14.5); RDW Standard Deviation 40.9 fL (36.4-46.3); Red Blood Count 3.45 M/uL (3.93-5.22); White Blood Count 6.29 K/ul (4.8-10.8)
[2022-01-19] MEDS: LORazepam 0.5 MG in SYRINGE 0.25 ML IV PRN ×3 (07:27→14:00)
[2022-01-19] MEDS: HYDROmorphone INJ 0.5 MG/0.5 ML SYR IV PRN ×2 (07:28→19:43)
[2022-01-19 07:47] LABS: Albumin Globulin Ratio 1.9 (0.9-2); Albumin Level 3.7 gm/dl (3.4-5.0); Bilirubin,Total 0.3 mg/dl (0.2-1.0); Calcium 8.4 mg/dl (8.5-10.1); Creatinine Clr Calc Pharmacy 106.1 ml/min; Est GFR (African American) 142.8 ml/min; Est GFR (Non-African American) 123.2 ml/min; Magnesium 2.1 mg/dl (1.7-2.4); Phosphorus 3.5 mg/dl (2.5-4.9); Potassium 3.8 mmol/L (3.5-5.1); Total Protein 5.7 gm/dl (6.0-8.3)
[2022-01-19] MEDS: [UNRECOGNIZED DRUG - REMARK] SCH (08:00)
--- NOTE | 2022-01-19 08:28 | Hospitalist Progress Note ---
Date of Service January 19, 2022 Assessment & Plan (1) Abdominal pain, chronic, generalized: Plan: Pilar is a 31 year old female with history of gastroparesis, SMA syndrome, adrenal insufficiency, and multiple abdominal surgeries (bowel resection, illeostomy, hysterectomy 2/2 endometriosis) who was admitted for increasing abdominal pain, blood per rectum, and blood per ostomy site following a colonoscopy. 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 allowed to go to [facility] to see her dog if clinically stable ---Dispo pending consistent pain control Nausea - Improved with simethicone - Continue Zofran - G tube venting as needed Adrenal insufficiency - Continue home regimen Severe protein-calorie malnutrition - Weight 48.2 kg, BMI 17 - Risk 2/2 gastroparesis, SMA syndrome, chronic pain, nausea - Recommend continuation of daily weights, I/Os, and TPN - GI consultation placed 01/14 * Advised monitoring of H&H for worsening bleeding * Recommended scheduled simethicone * Indicated potential for discomfort 2/2 colonoscopy 2/2 trapped air * Indicated possible presence of diversion colitis * Low threshold for transferring patient to GI team at [facility] if clinical picture worsens (2) Adrenal insufficiency: (3) Gastroparesis: (4) Gastrostomy tube in place: (5) Intestinal motility disorder: (6) Nausea: (7) On total parenteral nutrition (TPN): (8) SMAS (superior mesenteric artery syndrome): Plan Dispo: Med/surg DVT ppx: SCDs Diet: TPN, PO as tolerated Code: Full Admission and Anticipated Discharge Date Admission Date: January 15, 2022 Supervising Physician Co-Signing Physician Notes Patient seen and examined, chart reviewed, case discussed with Jodie Max, and I agree with the assessment and plan as above except as otherwise noted Labs and images reviewed Female seen at the bedside. Had severe pain in the same spot that she has been having pain last night, with a twisting pain. Is having trouble overnight as she wakes up after not pressing the button again pain which disturbs her sleep, reports pain is better controlled during the day but still is barely tolerable and overnight wakes up with intolerable pain. On exam abdomen remains tender, breathing is unlabored with symmetrical chest rise, patient appears tearful and in mild distress. 31-year-old female with no pain, suspected 2/[address] without acute findings, although suboptimal without contrast. Lactate normal Describes pain with a twisting quality. Patient does have a history of intussusception, and had an episode of twisting breakthrough pain at assessment, ultrasound without acute findings No gross electrolyte abnormalities. Patient does continue to have severe pain, particularly overnight. Given her persistent and continued pain preventing sleep and overall poorly controlled pain reasonable to trial a 50% basal rate and 50% push rate calculated on her average use. We will continue to follow, suspect given worsening pain and limited options at this facility patient will either require long-term pain control and possible fentanyl patch versus transfer, although limited options for patient on transfer and she is still pending evaluation and enrollment for gastric transplant Agree with other management as above Subjective Pilar is a 31 year old female with history of gastroparesis, SMA syndrome, adrenal insufficiency, and multiple abdominal surgeries (bowel resection, illeostomy, hysterectomy 2/2 endometriosis) who was admitted for increasing abdominal pain, blood per rectum, and blood per ostomy site following a colonoscopy. Today 01/19/22: - Patient seen with mother at bedside - Currently 5/10 pain in patient's lower abdomen - Patient's PATTERN CUTTER was increased yesterday, patient endorses better daytime control, but unimproved overnight control - Patient and mother note significant difficulty sleeping secondary to patient pain/interruptions - Pilar notes that when she falls asleep she 'gets behind' on her pain management and will awaken in pain and it will take hours to 'catch up'. - Patient continues to endorse twisting abdominal pain, primarily during the 11 PM - 2 AM hours, but she feels the discomfort building in the evenings - Patient continues to consume broths and crackers and receive her TPN in the evenings - Patient notes that heating pads and Bentyl help symptoms at home - Continued ostomy output, primarily bilious - No blood from ostomy or rectum 01/18/22: - Patient seen at bedside today with mother present, resting comfortably upon arrival - Patient notes that last night was rough - she had very intense pain and nausea in the middle of her abdomen and LLQ (surrounding her ileostomy) - Patient notes her history of intussusception and is concerned that this feels similar to her previous episode - Patient notes an ongoing 'twisting' sensation around her stoma site - she states that her stoma has been retracted for the last year, but overall has remained pink and healthy - Overnight she received a dose of Dilaudid which controlled her symptoms - Patient ate broth and crackers for dinner last night, but notes that her diet has been primarily liquids - Pilar endorses continued liquid output from her ostomy site without blood or mucous - She has also not experienced blood per rectum - She denies chest pain, dyspnea, or lightheadedness Patient's mother notes that they plan to proceed with SCFA enemas to help with her colon inflammation and that they are in the process of getting them compounded. Patient and mother requested additional information regarding SCFA. Information provided 01/19. Review of Systems Review of Systems: See HPI. Physical Exam Physical Exam: Gen: NAD, interactive, fatigued Resp:Non-labored, no wheezing/rhonchi/rales, CTAB CV:RRR, normal S1/S2, no M/R/G Abd: Soft, non-distended, TTP in central abdomen, RLQ and LLQ, no rebound tenderness or peritoneal signs, hypoactive bowels, no masses No erythema or edema around PEG site or stoma. Extr: 2+ dp bilaterally, no edema Skin: No rashes lesions or erythema Results & Data Results & Data ([facility]) Vital Signs (Past 12 Hours) Vital Signs Temp Pulse Resp BP Pulse Ox O2 Del Method 01/19/22 07:36 36.6 C 98 H 18 106/72 99 Room Air 01/19/22 04:05 36.4 C L 80 16 99/65 L 98 Room Air 01/18/22 21:20 Room Air 01/18/22 23:49 36.5 C 71 16 99/69 L 98 Room Air Resident Activity Tracking Resident Involvement: Resident Care Provided Care Provided: Adult Hospital Medicine
[2022-01-19] MEDS: FLUDROCORTISONE ACETATE 0.1 MG TAB PO SCH ×2 (09:03→19:47)
[2022-01-19] MEDS: FAMOTIDINE 20 MG TAB PO SCH ×2 (09:03→19:46)
[2022-01-19] MEDS: HYDROCORTISONE 10 MG TAB PO SCH ×2 (09:04→14:00)
[2022-01-19] MEDS: DICLOFENAC SOD 1% GEL 100 GM TUBE EXT SCH ×4 (09:05→19:45)
[2022-01-19] MEDS: PANTOprazole 40 MG TAB PO SCH (09:05)
[2022-01-19] MEDS: GABAPENTIN 250 MG/5 ML 470 ML BTL PO SCH ×3 (09:08→19:47)
--- NOTE | 2022-01-19 13:34 | Billing Data ---
Date of Service January 19, 2022 Coding Level of Care Code 48631 Subseq Hosp Care Lvl 2
[2022-01-19] MEDS: STOP ORDER: TPN SCH (15:07)
[2022-01-19] MEDS: HEPARIN 100 UNIT/ML 5ML FLUSH FLUSH PRN (15:07)
[2022-01-19] MEDS: SODIUM CHLORIDE 0.9% 1000ML 1,000 ML IV SCH (15:25)
[2022-01-19] MEDS: FEXOFENADINE HCL 180 MG TAB PO SCH (19:46)
[2022-01-19] MEDS ORDERED: CENTRAL PN IV SCH (21:00)
[2022-01-19] MEDS: DICYCLOMINE HCL 10 MG CAP PO PRN (21:15)
[2022-01-20] MEDS ORDERED: FAT EMUL/SOY/MCT/OLIV/FISH OIL 50 GM/250 ML BAG IV SCH
[2022-01-20] MEDS: LORazepam 0.5 MG in SYRINGE 0.25 ML IV PRN ×3 (00:27→15:52)
[2022-01-20] MEDS: SODIUM CHLORIDE 0.9% 1000ML 1,000 ML IV SCH (00:29)
[2022-01-20] MEDS: SIMETHICONE 80 MG CHEW PO SCH ×4 (00:34→17:05)
[2022-01-20] MEDS: HYDROmorphone INJ 0.5 MG/0.5 ML SYR IV PRN ×3 (00:53→20:05)
[2022-01-20] MEDS: HYDROmorphone PCA 30 MG/30 ML IV PRN (01:10)
[2022-01-20 07:41] LABS: Hematocrit (blood only) 34.4 % (34.1-44.9); Hemoglobin 11.6 g/dl (12.0-16.0); Mean Corpuscular Hemoglobin 31.8 pg (25.0-34.0); Mean Corpuscular Hgb Conc 33.7 g/dL (32.0-36.0); Mean Corpuscular Volume 94.2 fL (80.0-100.0); Mean Platelet Volume 11.1 fL (9.4-12.3); Platelet Count 246 K/uL (130-400); RDW Coefficient of Variation 11.6 % (11.5-14.5); RDW Standard Deviation 40.3 fL (36.4-46.3); Red Blood Count 3.65 M/uL (3.93-5.22); White Blood Count 6.58 K/ul (4.8-10.8)
[2022-01-20 08:06] LABS: Albumin Globulin Ratio 1.8 (0.9-2); Albumin Level 3.7 gm/dl (3.4-5.0); BUN Creatinine Ratio 27.1 (10-20); Bilirubin,Total 0.3 mg/dl (0.2-1.0); Calcium 8.6 mg/dl (8.5-10.1); Creatinine Clr Calc Pharmacy 109.3 ml/min; Est GFR (African American) 143.6 ml/min; Est GFR (Non-African American) 123.9 ml/min; Globulin 2.1 gm/dl (2.5-4.0); Magnesium 2.1 mg/dl (1.7-2.4); Phosphorus 3.7 mg/dl (2.5-4.9); Potassium 3.9 mmol/L (3.5-5.1); Total Protein 5.8 gm/dl (6.0-8.3)
[2022-01-20] MEDS: [UNRECOGNIZED DRUG - REMARK] SCH (08:24)
[2022-01-20] MEDS: FAMOTIDINE 20 MG TAB PO SCH ×2 (08:29→20:01)
[2022-01-20] MEDS: PANTOprazole 40 MG TAB PO SCH (08:29)
[2022-01-20] MEDS: DICLOFENAC SOD 1% GEL 100 GM TUBE EXT SCH ×4 (08:30→20:01)
[2022-01-20] MEDS: HYDROCORTISONE 10 MG TAB PO SCH ×2 (08:30→12:49)
[2022-01-20] MEDS: FLUDROCORTISONE ACETATE 0.1 MG TAB PO SCH ×2 (08:31→20:02)
[2022-01-20] MEDS: GABAPENTIN 250 MG/5 ML 470 ML BTL PO SCH ×3 (08:32→20:11)
--- NOTE | 2022-01-20 13:30 | Hospitalist Progress Note ---
Date of Service January 20, 2022 Assessment & Plan (1) Abdominal pain, chronic, generalized: Plan: Pilar is a 31 year old female with history of gastroparesis, SMA syndrome, adrenal insufficiency, and multiple abdominal surgeries (bowel resection, illeostomy, hysterectomy 2/2 endometriosis) who was admitted for increasing abdominal pain, blood per rectum, and blood per ostomy site following a colonoscopy. Abdominal Pain w/ associated blood per ostomy and rectum - Vital signs remain stable, Hgb 11.4 (from 11.9, will monitor) - Abdominal Ultrasound without evidence of intussuception - GARDENER Pump adjusted 01/18: GARDENER Dose 0.3 mg, Lock Out 15 minutes, Continuous Dose 0, 1 hour max optional - Continue Dilaudid 0.25 mg Q4H PRN for breakthrough pain - SCFA in process by [employer] Waggoner Patient with some erythema at G-tube site, has had a history of site infections although this pain seems more severe than with those per patient. Patient has significant antibiotic allergies including penicillins, sulfas, trimethoprim, amoxicillin, and cephalosporins all with hives. Has tolerated vancomycin and clindamycin in the past. Consider course of ABX if concern for infection versus ?cipro Patient may require fentanyl patch till she is able to follow-up with antimedicine potential transplants as noted below Nausea - Improved with simethicone - Continue Zofran - G tube venting as needed Adrenal insufficiency - Continue home regimen Severe protein-calorie malnutrition - Weight 48.2 kg, BMI 17 - Risk 2/2 gastroparesis, SMA syndrome, chronic pain, nausea - Recommend continuation of daily weights, I/Os, and TPN - GI consultation placed 01/14 * Advised monitoring of H&H for worsening bleeding * Recommended scheduled simethicone * Indicated potential for discomfort 2/2 colonoscopy 2/2 trapped air * Indicated possible presence of diversion colitis * Low threshold for transferring patient to GI team at [facility] if clinical picture worsens (2) Adrenal insufficiency: (3) Gastroparesis: (4) Gastrostomy tube in place: (5) Intestinal motility disorder: (6) Nausea: (7) On total parenteral nutrition (TPN): (8) SMAS (superior mesenteric artery syndrome): Plan Dispo: Med/surg DVT ppx: SCDs Diet: TPN, PO as tolerated Code: Full Admission and Anticipated Discharge Date Admission Date: January 15, 2022 Subjective Seen at bedside today. Had a rather difficult night, she thinks a GARDENER basal pain control worked better but she lost her IV and went an hour or 2 without pain control which is very bad. Then she had difficulty falling asleep, and had some difficulty at her ostomy. She was settled she started to feel better. Does note that her tube site does seem to be red, denies fever/chills/sweats/lightheadedness/dizziness Review of Systems Review of Systems: All systems reviewed & are unremarkable except as noted in Subjective Physical Exam Physical Exam: General: Thin, alert and oriented, appears in mild pain HEENT: Atraumatic, normocephalic. Pulm: CTAB A&P. -wheezes, -rales, -rhonchi. Symmetrical chest rise. No increase in work of breathing. No respiratory distress. Cardiac: RRR, -mrg. Radial pulses intact and symmetrical. Abdominal: Palpation around G-tube and ostomy site. G-tube with scant spreading erythema, no purulence/discharge Results & Data Results & Data ([facility]) Vital Signs (Past 12 Hours) Vital Signs Temp Pulse Resp BP Pulse Ox O2 Del Method 01/20/22 13:06 36.7 C 81 16 104/68 98 Room Air 01/20/22 07:33 36.7 C 95 H 12 95/62 L 97 Room Air 01/20/22 03:51 36.5 C 75 12 96/65 L 98 Room Air PG Care Time/CCT Total # of Minutes Spent Total Time Spent with Patient: Total time spent is greater than 50% in coordination of care (as documented) at patient's floor/unit and/or counseling patient: Coding Level of Care Code 63996 Subseq Hosp Care Lvl 2 Diagnoses Abdominal pain, chronic, generalized R10.84; G89.29 Adrenal insufficiency E27.40 Gastroparesis K31.[address] Z93.1 Intestinal motility disorder K59.9 Nausea R11.0 On total parenteral nutrition (TPN) Z78.9 SMAS (superior mesenteric artery syndrome) K55.1
[2022-01-20] MEDS: STOP ORDER: TPN SCH (14:50)
[2022-01-20] MEDS: CIPROFLOXACIN / D5W 400 MG/200 ML BAG IV SCH (18:02)
[2022-01-20] MEDS: ONDANSETRON INJ 2 MG/ML 2 ML VIAL IV PRN (19:56)
[2022-01-20] MEDS: FEXOFENADINE HCL 180 MG TAB PO SCH (20:01)
[2022-01-20] MEDS ORDERED: CENTRAL PN IV SCH (21:00)
[2022-01-21] MEDS ORDERED: FAT EMUL/SOY/MCT/OLIV/FISH OIL 50 GM/250 ML BAG IV SCH ×2
[2022-01-21] MEDS: DICYCLOMINE HCL 10 MG CAP PO PRN ×2 (00:01→23:17)
[2022-01-21] MEDS: LORazepam 0.5 MG in SYRINGE 0.25 ML IV PRN ×4 (00:01→18:56)
[2022-01-21] MEDS: SIMETHICONE 80 MG CHEW PO SCH ×5 (00:02→23:18)
[2022-01-21] MEDS: HYDROmorphone INJ 0.5 MG/0.5 ML SYR IV PRN ×5 (00:11→20:31)
[2022-01-21] MEDS: CIPROFLOXACIN / D5W 400 MG/200 ML BAG IV SCH ×2 (05:47→17:54)
[2022-01-21 08:24] LABS: Hematocrit (blood only) 32.7 % (34.1-44.9); Hemoglobin 10.8 g/dl (12.0-16.0); Mean Corpuscular Volume 96.7 fL (80.0-100.0); Mean Platelet Volume 11.2 fL (9.4-12.3); Platelet Count 223 K/uL (130-400); RDW Coefficient of Variation 11.7 % (11.5-14.5); RDW Standard Deviation 41.1 fL (36.4-46.3); Red Blood Count 3.38 M/uL (3.93-5.22); White Blood Count 6.18 K/ul (4.8-10.8)
[2022-01-21 08:52] LABS: Albumin Globulin Ratio 1.9 (0.9-2); Albumin Level 3.6 gm/dl (3.4-5.0); BUN Creatinine Ratio 26.2 (10-20); Bilirubin,Total 0.2 mg/dl (0.2-1.0); Calcium 8.4 mg/dl (8.5-10.1); Creatinine Clr Calc Pharmacy 104.7 ml/min; Est GFR (Non-African American) 121.7 ml/min; Globulin 1.9 gm/dl (2.5-4.0); Magnesium 1.9 mg/dl (1.7-2.4); Phosphorus 3.7 mg/dl (2.5-4.9); Potassium 3.9 mmol/L (3.5-5.1); Total Protein 5.5 gm/dl (6.0-8.3)
[2022-01-21] MEDS: GABAPENTIN 250 MG/5 ML 470 ML BTL PO SCH ×3 (08:54→21:35)
[2022-01-21] MEDS: FAMOTIDINE 20 MG TAB PO SCH ×2 (08:54→20:26)
[2022-01-21] MEDS: PANTOprazole 40 MG TAB PO SCH (08:54)
[2022-01-21] MEDS: FLUDROCORTISONE ACETATE 0.1 MG TAB PO SCH ×2 (08:54→20:29)
[2022-01-21] MEDS: HYDROCORTISONE 10 MG TAB PO SCH ×2 (08:55→13:50)
[2022-01-21] MEDS: DICLOFENAC SOD 1% GEL 100 GM TUBE EXT SCH ×4 (08:55→20:25)
[2022-01-21] MEDS: [UNRECOGNIZED DRUG - REMARK] SCH (08:55)
[2022-01-21] MEDS: ONDANSETRON INJ 2 MG/ML 2 ML VIAL IV PRN ×3 (08:59→21:35)
--- NOTE | 2022-01-21 10:23 | Hospitalist Progress Note ---
Date of Service January 21, 2022 Assessment & Plan (1) Abdominal pain, chronic, generalized: Plan: Pilar is a 31 year old female with history of gastroparesis, SMA syndrome, adrenal insufficiency, and multiple abdominal surgeries (bowel resection, illeostomy, hysterectomy 2/2 endometriosis) who was admitted for increasing abdominal pain, blood per rectum, and blood per ostomy site following a colonoscopy. Abdominal Pain w/ associated blood per ostomy and rectum - Vital signs remain stable, Hgb 11.4 (from 11.9, will monitor) - Abdominal Ultrasound without evidence of intussuception - CASEY SAW OPERATOR Pump adjusted 01/18: CASEY SAW OPERATOR Dose 0.3 mg, Lock Out 15 minutes, Continuous Dose 0, 1 hour max optional - Continue Dilaudid 0.25 mg Q4H PRN for breakthrough pain - SCFA in process by [employer] Waggoner Patient with some erythema at G-tube site, has had a history of site infections although this pain seems more severe than with those per patient. Patient has significant antibiotic allergies including penicillins, sulfas, trimethoprim, amoxicillin, and cephalosporins all with hives. Has tolerated vancomycin and clindamycin in the past. Cipro started evening of 01/20, some improvement in erythema and patient qualitatively improved. We will continue this for trial of 5-day course Patient may require fentanyl patch till she is able to follow-up with antimedicine potential transplants as noted below Nausea - Improved with simethicone - Continue Zofran - G tube venting as needed Adrenal insufficiency - Continue home regimen Severe protein-calorie malnutrition - Weight 48.2 kg, BMI 17 - Risk 2/2 gastroparesis, SMA syndrome, chronic pain, nausea - Recommend continuation of daily weights, I/Os, and TPN - GI consultation placed 01/14 * Advised monitoring of H&H for worsening bleeding * Recommended scheduled simethicone * Indicated potential for discomfort 2/2 colonoscopy 2/2 trapped air * Indicated possible presence of diversion colitis * Low threshold for transferring patient to GI team at [facility] if clinical picture worsens (2) Adrenal insufficiency: (3) Gastroparesis: (4) Gastrostomy tube in place: (5) Intestinal motility disorder: (6) Nausea: (7) On total parenteral nutrition (TPN): (8) SMAS (superior mesenteric artery syndrome): Plan Dispo: Med/surg DVT ppx: SCDs Diet: TPN, PO as tolerated Code: Full Admission and Anticipated Discharge Date Admission Date: January 15, 2022 Subjective Pilar is seen at the bedside this morning. She reports her night last night actually went much better than the prior. Fewer interruptions, pain is overall more well controlled. Is not sure if the Cipro is helping, abdomen site seems a little bit less red. Overall comfortable continuing the current plan and deferring steroids at this time and see how things go. No fever, chills, sweats. Continues to have intermittent abdominal pain more well controlled today than yesterday. No lightheadedness, dizziness, cough. Enemas are nearly ready from the compounding pharmacy Review of Systems Review of Systems: All systems reviewed & are unremarkable except as noted in Subjective Physical Exam Physical Exam: General: Thin, alert and oriented, appears in mild pain HEENT: Atraumatic, normocephalic. Pulm: CTAB A&P. -wheezes, -rales, -rhonchi. Symmetrical chest rise. No increase in work of breathing. No respiratory distress. Cardiac: RRR, -mrg. Radial pulses intact and symmetrical. Abdominal: Palpation around G-tube and ostomy site. G-tube with scant erythema, improved today Results & Data Results & Data ([facility]) Vital Signs (Past 12 Hours) Vital Signs Temp Pulse Resp BP Pulse Ox O2 Del Method 01/21/22 03:08 36.5 C 88 14 109/71 98 Room Air 01/20/22 23:53 36.7 C 76 14 105/73 98 Room Air PG Care Time/CCT Total # of Minutes Spent Total Time Spent with Patient: Total time spent is greater than 50% in coordination of care (as documented) at patient's floor/unit and/or counseling patient: Coding Level of Care Code 33227 Subseq Hosp Care Lvl 2 Diagnoses Abdominal pain, chronic, generalized R10.84; G89.29 Adrenal insufficiency E27.40 Gastroparesis K31.[address] Z93.1 Intestinal motility disorder K59.9 Nausea R11.0 On total parenteral nutrition (TPN) Z78.9 SMAS (superior mesenteric artery syndrome) K55.1
[2022-01-21] MEDS ORDERED: TPN/PPN CONSULT PHARMACY STA (11:08)
[2022-01-21] MEDS: STOP ORDER: TPN SCH (15:30)
[2022-01-21] MEDS: HYDROmorphone PCA 30 MG/30 ML IV PRN (17:39)
[2022-01-21] MEDS: SODIUM CHLORIDE 0.9% 1000ML 1,000 ML IV SCH (17:50)
[2022-01-21] MEDS: FEXOFENADINE HCL 180 MG TAB PO SCH (20:27)
[2022-01-21] MEDS ORDERED: [UNRECOGNIZED DRUG - OTHER] IV SCH (21:00)
[2022-01-21] MEDS ORDERED: AMINO ACID 8% IV SCH (21:00)
[2022-01-21] MEDS ORDERED: CENTRAL TPN IV SCH (21:00)
[2022-01-21] MEDS ORDERED: HYDROmorphone INJ 0.5 MG/0.5 ML SYR IV STA ×2 (22:49→23:11)
--- NOTE | 2022-01-21 23:25 | Communication Note ---
Date of Service: January 21, 2022 Message from RN that patient was in acute severe pain. Mom at bedside felt that this was extremely out of the ordinary for the patient. I went up to assess her and mom corroborated this information. Patient was curled up on the floor at the side of the bed crying from pain. She was able to get into bed to allow me to examine her and was significantly guarding upon palpation, especially at the lower abdomen. She was given 2 doses of Dilaudid 0.25 mg and 1 dose of Dilaudid 0.5 mg on top of her GEOTHERMAL ELECTRICAL ENGINEER. I ordered a stat abdominal CT. RN stated that when patient came back from CT she was feeling more comfortable. Image showed PEG tube well-positioned in stomach. Stoma noted in the right abdomen. The small bowel and colon are otherwise unremarkable. Status postcholecystectomy. Solid organs unremarkable in the upper abdomen. Patient status post hysterectomy. Pain stable after above. Will continue to monitor. Resident Activity Tracking Resident Involvement: Resident Care Provided Care Provided: Adult [facility]
[2022-01-21] MEDS ORDERED: OPTIRAY 300 100mL IV ONE (23:52)
[2022-01-22] MEDS ORDERED: FAT EMUL/SOY/MCT/OLIV/FISH OIL 50 GM/250 ML BAG IV SCH
[2022-01-22] MEDS: HYDROmorphone INJ 0.5 MG/0.5 ML SYR IV PRN ×5 (03:15→22:43)
[2022-01-22] MEDS: LORazepam 0.5 MG in SYRINGE 0.25 ML IV PRN ×3 (03:16→22:43)
[2022-01-22 05:52] LABS: Hematocrit (blood only) 32.2 % (34.1-44.9); Hemoglobin 10.9 g/dl (12.0-16.0); Mean Corpuscular Hemoglobin 31.9 pg (25.0-34.0); Mean Corpuscular Hgb Conc 33.9 g/dL (32.0-36.0); Mean Corpuscular Volume 94.2 fL (80.0-100.0); Mean Platelet Volume 10.9 fL (9.4-12.3); Platelet Count 233 K/uL (130-400); RDW Coefficient of Variation 11.8 % (11.5-14.5); RDW Standard Deviation 40.6 fL (36.4-46.3); Red Blood Count 3.42 M/uL (3.93-5.22); White Blood Count 8.93 K/ul (4.8-10.8)
[2022-01-22] MEDS: CIPROFLOXACIN / D5W 400 MG/200 ML BAG IV SCH ×2 (05:59→17:54)
[2022-01-22] MEDS: SIMETHICONE 80 MG CHEW PO SCH ×4 (06:02→23:58)
[2022-01-22] MEDS: ONDANSETRON INJ 2 MG/ML 2 ML VIAL IV PRN ×3 (06:07→18:10)
[2022-01-22 06:15] LABS: Albumin Globulin Ratio 1.7 (0.9-2); Albumin Level 3.6 gm/dl (3.4-5.0); BUN Creatinine Ratio 23.8 (10-20); Bilirubin,Total 0.3 mg/dl (0.2-1.0); Calcium 8.5 mg/dl (8.5-10.1); Creatinine Clr Calc Pharmacy 101.4 ml/min; Est GFR (African American) 139.5 ml/min; Est GFR (Non-African American) 120.4 ml/min; Globulin 2.1 gm/dl (2.5-4.0); Magnesium 1.7 mg/dl (1.7-2.4); Phosphorus 3.9 mg/dl (2.5-4.9); Potassium 3.8 mmol/L (3.5-5.1); Total Protein 5.7 gm/dl (6.0-8.3)
[2022-01-22] MEDS: [UNRECOGNIZED DRUG - REMARK] SCH (07:50)
--- NOTE | 2022-01-22 08:03 | CT Scan Report ---
ABDOMEN AND PELVIS CT WITH IV CONTRAST CT DOSE: 255.13 mGy.cm HISTORY: Mid abdominal pain. acute worsening abd pain TECHNIQUE: Multiaxial CT images of the abdomen and pelvis were performed following the use of intrave nous contrast. A dose lowering technique was utilized adhering to the principles of ALARA. COMPARISON STUDY: Abdomen and pelvis CT 01/17. FINDINGS: The lung bases remain clear. No pneumoperitoneum. No pneumatosis. No acute fractures within the visualized osseous structures. Cholecystectomy. The liver, spleen, adrenal glands, pancreas, and kidneys are unremarkable. No hydronephrosis. A gastrostomy tube is in good position. Mild thickening of the distal gastric wall remains unchanged. The main portal vein is patent. Normal caliber abdomin al aorta. No retroperitoneal lymphadenopathy. The bladder is unremarkable. Prior hysterectomy. Modera te to large amount of stool within the cecum and proximal ascending colon. The remaining colon is dec ompressed. No dilated loops of small bowel to suggest an obstruction. There is a right lower quadrant ileostomy again noted. The appendix is surgically absent. IMPRESSION: 1. No significant change compared to the prior study. 2. Mild wall thickening the distal stomach is again noted. 3. No evidence for bowel obstruction. 4. Postoperative changes as described above. 5. Trace pelvic free fluid, unchanged. ACT 112: Negative or not required by law. Electronically signed by: Victor Hugo Snowden M.D. 01/22/2022 8:01 AM
[2022-01-22] MEDS: DICLOFENAC SOD 1% GEL 100 GM TUBE EXT SCH ×4 (09:38→21:29)
--- NOTE | 2022-01-22 09:41 | Hospitalist Progress Note ---
Date of Service January 22, 2022 Assessment & Plan (1) Abdominal pain, chronic, generalized: Plan: Pilar is a 31 year old female with history of gastroparesis, SMA syndrome, adrenal insufficiency, and multiple abdominal surgeries (bowel resection, illeostomy, hysterectomy 2/2 endometriosis) who was admitted for increasing abdominal pain, blood per rectum, and blood per ostomy site following a colonoscopy. Abdominal Pain w/ associated blood per ostomy and rectum -diversion colitis noted per family - Abdominal Ultrasound without evidence of intussusception. pt believes her pain is from intermittent intussusception - CHIEF OF STAFF DOCTOR Pump adjusted 01/18: CHIEF OF STAFF DOCTOR Dose 0.3 mg, Lock Out 15 minutes, Continuous Dose 0, 1 hour max optional - Continue Dilaudid 0.25 mg Q4H PRN for breakthrough pain - Short Chain Fatty Acid enema is treatment for diversion colitis, I phoned [facility], they are unaware of the request but suggested I call [facility], [phone] Patient with improving erythema at G-tube site, has had a history of site infections although this pain seems more severe than with those per patient. Patient has significant antibiotic allergies including penicillins, sulfas, trim ethoprim, amoxicillin, and cephalosporins all with hives. Has tolerated vancomycin and clindamycin in the past. Cipro started evening of 01/20 continue this for trial of 5-day course Patient may require fentanyl patch till she is able to follow-up with potential transplants as noted below Nausea - Improved with simethicone - Continue Zofran - G tube venting as needed Adrenal insufficiency - Continue home regimen Severe protein-calorie malnutrition - Weight 48.2 kg, BMI 17 - Risk 2/2 gastroparesis, SMA syndrome, chronic pain, nausea - Recommend continuation of daily weights, I/Os, and TPN - GI consultation placed 01/14 * Advised monitoring of H&H for worsening bleeding * Recommended scheduled simethicone * Indicated potential for discomfort 2/2 colonoscopy 2/2 trapped air * Indicated possible presence of diversion colitis * Low threshold for transferring patient to GI team at [facility] if clinical picture worsens (2) Adrenal insufficiency: (3) Gastroparesis: (4) Gastrostomy tube in place: (5) Intestinal motility disorder: (6) Nausea: (7) On total parenteral nutrition (TPN): (8) SMAS (superior mesenteric artery syndrome): Plan Dispo: Med/surg DVT ppx: SCDs Diet: TPN, PO as tolerated Code: Full Admission and Anticipated Discharge Date Admission Date: January 15, 2022 Subjective pt says she is about the same, did have an event last pm after urinating, intense abdominal pain. she has pudding consistency she does have some irritation at about 3-4 oclock of her ostomy, she took a picture to show me. otherwise she is status quo Review of Systems Review of Systems: Mild to moderate distress and fatigue no headache, no visual changes no speech or swallowing issues no chest pain, pressure or palpitations no shortness of breath, cough or wheezes diffuse abdominal pain, mild nausea or vomiting, pudding stool in ostomy bad no dysuria, hematuria or frequency no focal joint pain or swelling no back pain, CVA tenderness or radicular pain no bruising, bleeding or rashes no focal signs of weakness or numbness or altered sensation no complaints of anxiety or depression.. Physical Exam Physical Exam: The patient appeared thin and underweight, she is in moderate distress Vital signs as documented. Head exam is normocephalic atraumatic Neck is without JVD, thyromegaly, or carotid bruits. Lungs are clear to auscultation, no focal loss of breath sounds Cardiac exam, Rhythm is regular.. No murmurs, rubs or gallops. Abdominal exam reveals normal bowel sounds, soft , diffusely tender, functioning ostomy in mid abdomen Extremities are nonedematous and both pedal pulses are present Neurologic exam is alert and oriented, no focal loss of strength or sensation Skin is without bruises or rashes Psychologically is without concerns for anxiety or depression.. Results & Data Results & Data ([facility]) Vital Signs (Past 12 Hours) Vital Signs Temp Pulse Pulse Resp BP Pulse Ox O2 Del Method 01/22/22 08:54 98.1 F 99 H 16 94/55 L 97 Room Air 01/22/22 03:11 98.2 F 88 14 107/69 99 Room Air 01/21/22 23:59 98.1 F 77 16 111/77 99 Room Air PG Care Time/CCT Total # of Minutes Spent Total Time Spent with Patient: Total time spent is greater than 50% in coordination of care (as documented) at patient's floor/unit and/or counseling patient: Coding Level of Care Code 63471 Subseq Hosp Care Lvl 2 Diagnoses Abdominal pain, chronic, generalized R10.84; G89.29 Adrenal insufficiency E27.40 Gastroparesis K31.[address] Z93.1 Intestinal motility disorder K59.9 Nausea R11.0 On total parenteral nutrition (TPN) Z78.9 SMAS (superior mesenteric artery syndrome) K55.1
[2022-01-22] MEDS: GABAPENTIN 250 MG/5 ML 470 ML BTL PO SCH ×3 (10:09→21:34)
[2022-01-22] MEDS: FAMOTIDINE 20 MG TAB PO SCH ×2 (10:10→21:32)
[2022-01-22] MEDS: FLUDROCORTISONE ACETATE 0.1 MG TAB PO SCH ×2 (10:10→21:31)
[2022-01-22] MEDS: HYDROCORTISONE 10 MG TAB PO SCH ×2 (10:11→14:10)
[2022-01-22] MEDS: PANTOprazole 40 MG TAB PO SCH (10:12)
[2022-01-22] MEDS: HEPARIN 100 UNIT/ML 5ML FLUSH FLUSH PRN ×2 (15:00→20:12)
[2022-01-22] MEDS: STOP ORDER: TPN SCH (15:01)
[2022-01-22] MEDS: SODIUM CHLORIDE 0.9% 1000ML 1,000 ML IV SCH (17:54)
[2022-01-22] MEDS ORDERED: AMINO ACID 8% IV SCH (21:00)
[2022-01-22] MEDS ORDERED: CENTRAL TPN IV SCH (21:00)
[2022-01-22] MEDS ORDERED: [UNRECOGNIZED DRUG - OTHER] IV SCH (21:00)
[2022-01-22] MEDS: FEXOFENADINE HCL 180 MG TAB PO SCH (21:32)
[2022-01-22] MEDS: DICYCLOMINE HCL 10 MG CAP PO PRN (21:33)
[2022-01-23] MEDS ORDERED: FAT EMUL/SOY/MCT/OLIV/FISH OIL 50 GM/250 ML BAG IV SCH
[2022-01-23] MEDS: HYDROmorphone INJ 0.5 MG/0.5 ML SYR IV PRN ×4 (03:03→19:33)
[2022-01-23] MEDS: ONDANSETRON INJ 2 MG/ML 2 ML VIAL IV PRN ×3 (03:05→18:25)
[2022-01-23] MEDS: LORazepam 0.5 MG in SYRINGE 0.25 ML IV PRN ×3 (04:50→19:46)
[2022-01-23 06:09] LABS: Hematocrit (blood only) 31.4 % (34.1-44.9); Hemoglobin 10.7 g/dl (12.0-16.0); Mean Corpuscular Hemoglobin 31.8 pg (25.0-34.0); Mean Corpuscular Hgb Conc 34.1 g/dL (32.0-36.0); Mean Corpuscular Volume 93.2 fL (80.0-100.0); Mean Platelet Volume 11.1 fL (9.4-12.3); Platelet Count 223 K/uL (130-400); RDW Coefficient of Variation 11.8 % (11.5-14.5); RDW Standard Deviation 39.8 fL (36.4-46.3); Red Blood Count 3.37 M/uL (3.93-5.22); White Blood Count 6.73 K/ul (4.8-10.8)
[2022-01-23] MEDS: SIMETHICONE 80 MG CHEW PO SCH ×4 (06:09→23:13)
[2022-01-23] MEDS: CIPROFLOXACIN / D5W 400 MG/200 ML BAG IV SCH ×2 (06:13→18:18)
[2022-01-23 06:34] LABS: Albumin Globulin Ratio 1.7 (0.9-2); Albumin Level 3.5 gm/dl (3.4-5.0); BUN Creatinine Ratio 27.4 (10-20); Bilirubin,Total 0.2 mg/dl (0.2-1.0); Calcium 8.5 mg/dl (8.5-10.1); Creatinine Clr Calc Pharmacy 103.1 ml/min; Est GFR (African American) 140.2 ml/min; Globulin 2.1 gm/dl (2.5-4.0); Magnesium 1.9 mg/dl (1.7-2.4); Phosphorus 3.8 mg/dl (2.5-4.9); Potassium 3.7 mmol/L (3.5-5.1); Total Protein 5.6 gm/dl (6.0-8.3)
[2022-01-23] MEDS: [UNRECOGNIZED DRUG - REMARK] SCH (08:30)
[2022-01-23] MEDS: DICLOFENAC SOD 1% GEL 100 GM TUBE EXT SCH ×4 (10:05→21:13)
[2022-01-23] MEDS: PANTOprazole 40 MG TAB PO SCH (11:17)
[2022-01-23] MEDS: HYDROCORTISONE 10 MG TAB PO SCH ×2 (11:17→15:38)
[2022-01-23] MEDS: FLUDROCORTISONE ACETATE 0.1 MG TAB PO SCH ×2 (11:18→21:15)
[2022-01-23] MEDS: FAMOTIDINE 20 MG TAB PO SCH ×2 (11:19→21:14)
[2022-01-23] MEDS: GABAPENTIN 250 MG/5 ML 470 ML BTL PO SCH ×3 (11:23→21:13)
[2022-01-23] MEDS: HEPARIN 100 UNIT/ML 5ML FLUSH FLUSH PRN ×3 (11:26→19:46)
[2022-01-23] MEDS: STOP ORDER: TPN SCH (15:33)
[2022-01-23] MEDS: SODIUM CHLORIDE 0.9% 1000ML 1,000 ML IV SCH (16:52)
[2022-01-23] MEDS: HYDROmorphone PCA 30 MG/30 ML IV PRN (17:49)
--- NOTE | 2022-01-23 20:05 | Hospitalist Progress Note ---
Date of Service January 23, 2022 Assessment & Plan (1) Abdominal pain, chronic, generalized: Plan: Pilar is a 31 year old female with history of gastroparesis, SMA syndrome, adrenal insufficiency, and multiple abdominal surgeries (bowel resection, illeostomy, hysterectomy 2/2 endometriosis) who was admitted for increasing abdominal pain, blood per rectum, and blood per ostomy site following a colonoscopy. 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 pt believes her pain is from intermittent intussusception. 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 Patient has significant antibiotic allergies including penicillins, sulfas, trimethoprim, amoxicillin, and cephalosporins all with hives. Has tolerated vancomycin and clindamycin in the past. Cipro started evening of 01/20 continue this for trial of 5-day course Patient may require fentanyl patch till she is able to follow-up with potential transplants as noted below Nausea - Improved with simethicone - Continue Zofran - G tube venting as needed Adrenal insufficiency - Continue home regimen Severe protein-calorie malnutrition - Weight 48.2 kg, BMI 17 - Risk 2/2 gastroparesis, SMA syndrome, chronic pain, nausea - Recommend continuation of daily weights, I/Os, and TPN - GI consultation placed 01/14 * Advised monitoring of H&H for worsening bleeding * Recommended scheduled simethicone * Indicated potential for discomfort 2/2 colonoscopy 2/2 trapped air * Indicated possible presence of diversion colitis * Low threshold for transferring patient to GI team at [facility] if clinical picture worsens (2) Adrenal insufficiency: (3) Gastroparesis: (4) Gastrostomy tube in place: (5) Intestinal motility disorder: (6) Nausea: (7) On total parenteral nutrition (TPN): (8) SMAS (superior mesenteric artery syndrome): Plan Dispo: Med/surg DVT ppx: SCDs Diet: TPN, PO as tolerated Code: Full Admission and Anticipated Discharge Date Admission Date: January 15, 2022 Subjective pt has persistent nausea, is having some abdominal pain, is looking forward to short chain fatty acid enemas. mother at bedside and updated Review of Systems Review of Systems: Mild to moderate distress and fatigue no headache, no visual changes no speech or swallowing issues no chest pain, pressure or palpitations no shortness of breath, cough or wheezes diffuse abdominal pain, mild nausea or vomiting, pudding stool in ostomy bag no dysuria, hematuria or frequency no focal joint pain or swelling no back pain, CVA tenderness or radicular pain no bruising, bleeding or rashes no focal signs of weakness or numbness or altered sensation no complaints of anxiety or depression.. Physical Exam 2 Physical Exam: The patient appeared thin and underweight, she is in moderate distress Vital signs as documented. Head exam is normocephalic atraumatic Neck is without JVD, thyromegaly, or carotid bruits. Lungs are clear to auscultation, no focal loss of breath sounds Cardiac exam, Rhythm is regular.. No murmurs, rubs or gallops. Abdominal exam reveals normal bowel sounds, soft , diffusely tender, functioning ostomy in mid abdomen Extremities are nonedematous and both pedal pulses are present Neurologic exam is alert and oriented, no focal loss of strength or sensation Skin is without bruises or rashes Psychologically is without concerns for anxiety or depression.. Results & Data Results & Data ([facility]) Vital Signs (Past 12 Hours) Vital Signs Temp Pulse Resp BP BP Pulse Ox O2 Del Method 01/23/22 15:28 98.1 F 97 H 16 108/71 95 Room Air 01/23/22 11:12 98.2 F 86 16 94/56 L 96 Room Air 01/23/22 08:15 97.9 F 87 16 92/58 L 97 Room Air PG Care Time/CCT Total # of Minutes Spent Total Time Spent with Patient: Total time spent is greater than 50% in coordination of care (as documented) at patient's floor/unit and/or counseling patient: Coding Level of Care Code 55308 Subseq Hosp Care Lvl 2 Diagnoses Abdominal pain, chronic, generalized R10.84; G89.29 Adrenal insufficiency E27.40 Gastroparesis K31.[address] Z93.1 Intestinal motility disorder K59.9 Nausea R11.0 On total parenteral nutrition (TPN) Z78.9 SMAS (superior mesenteric artery syndrome) K55.1
[2022-01-23] MEDS ORDERED: CENTRAL TPN IV SCH (21:00)
[2022-01-23] MEDS ORDERED: AMINO ACID 8% IV SCH (21:00)
[2022-01-23] MEDS ORDERED: [UNRECOGNIZED DRUG - OTHER] IV SCH (21:00)
[2022-01-23] MEDS: FEXOFENADINE HCL 180 MG TAB PO SCH (21:14)
[2022-01-23] MEDS: DICYCLOMINE HCL 10 MG CAP PO PRN (23:12)
[2022-01-24] MEDS ORDERED: FAT EMUL/SOY/MCT/OLIV/FISH OIL 50 GM/250 ML BAG IV SCH
[2022-01-24] MEDS: ONDANSETRON INJ 2 MG/ML 2 ML VIAL IV PRN ×4 (00:02→21:03)
[2022-01-24] MEDS ORDERED: HYDROmorphone INJ 0.5 MG/0.5 ML SYR IV STA (01:34)
[2022-01-24] MEDS: LORazepam 0.5 MG in SYRINGE 0.25 ML IV PRN ×4 (01:53→23:47)
[2022-01-24] MEDS: HYDROmorphone INJ 0.5 MG/0.5 ML SYR IV PRN ×6 (04:40→23:17)
[2022-01-24 05:55] LABS: Hemoglobin 10.6 g/dl (12.0-16.0); Mean Corpuscular Hemoglobin 32.2 pg (25.0-34.0); Mean Corpuscular Hgb Conc 34.2 g/dL (32.0-36.0); Mean Corpuscular Volume 94.2 fL (80.0-100.0); Mean Platelet Volume 11.3 fL (9.4-12.3); Platelet Count 229 K/uL (130-400); RDW Coefficient of Variation 11.6 % (11.5-14.5); RDW Standard Deviation 39.8 fL (36.4-46.3); Red Blood Count 3.29 M/uL (3.93-5.22); White Blood Count 5.94 K/ul (4.8-10.8)
[2022-01-24] MEDS: SIMETHICONE 80 MG CHEW PO SCH ×4 (05:56→23:18)
[2022-01-24] MEDS: CIPROFLOXACIN / D5W 400 MG/200 ML BAG IV SCH ×2 (05:57→18:05)
[2022-01-24 06:14] LABS: Albumin Globulin Ratio 1.8 (0.9-2); Albumin Level 3.6 gm/dl (3.4-5.0); Bilirubin,Total 0.3 mg/dl (0.2-1.0); Calcium 8.3 mg/dl (8.5-10.1); Creatinine Clr Calc Pharmacy 99.8 ml/min; Est GFR (African American) 138.8 ml/min; Est GFR (Non-African American) 119.7 ml/min; Magnesium 1.9 mg/dl (1.7-2.4); Phosphorus 3.5 mg/dl (2.5-4.9); Potassium 3.6 mmol/L (3.5-5.1); Total Protein 5.6 gm/dl (6.0-8.3)
[2022-01-24] MEDS: [UNRECOGNIZED DRUG - REMARK] SCH (08:30)
[2022-01-24] MEDS: DICLOFENAC SOD 1% GEL 100 GM TUBE EXT SCH (08:52)
[2022-01-24] MEDS: GABAPENTIN 250 MG/5 ML 470 ML BTL PO SCH ×3 (11:50→21:10)
[2022-01-24] MEDS: PANTOprazole 40 MG TAB PO SCH (11:51)
[2022-01-24] MEDS: FLUDROCORTISONE ACETATE 0.1 MG TAB PO SCH ×2 (11:51→21:04)
[2022-01-24] MEDS: HYDROCORTISONE 10 MG TAB PO SCH ×2 (11:52→15:54)
[2022-01-24] MEDS: FAMOTIDINE 20 MG TAB PO SCH ×2 (11:53→21:03)
[2022-01-24] MEDS: [UNRECOGNIZED DRUG - OTHER] PR SCH ×2 (12:33→21:10)
[2022-01-24] MEDS: HEPARIN 100 UNIT/ML 5ML FLUSH FLUSH PRN (15:02)
[2022-01-24] MEDS: STOP ORDER: TPN SCH (15:02)
[2022-01-24] MEDS: SODIUM CHLORIDE 0.9% 1000ML 1,000 ML IV SCH (15:59)
--- NOTE | 2022-01-24 17:52 | Hospitalist Progress Note ---
Date of Service January 24, 2022 Assessment & Plan (1) Abdominal pain, chronic, generalized: Plan: Pilar is a 31 year old female with history of gastroparesis, SMA syndrome, adrenal insufficiency, and multiple abdominal surgeries (bowel resection, illeostomy, hysterectomy 2/2 endometriosis) who was admitted for increasing abdominal pain, blood per rectum, and blood per ostomy site following a colonoscopy. 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 pt believes her pain is from intermittent intussusception. 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 Patient has significant antibiotic allergies including penicillins, sulfas, trimethoprim, amoxicillin, and cephalosporins all with hives. Has tolerated vancomycin and clindamycin in the past. Cipro started evening of 01/20 continue this for trial of 5-day course Patient may require fentanyl patch till she is able to follow-up with potential transplants as noted below Nausea - Improved with simethicone - Continue Zofran - G tube venting as needed Adrenal insufficiency - Continue home regimen Severe protein-calorie malnutrition - Weight 48.2 kg, BMI 17 - Risk 2/2 gastroparesis, SMA syndrome, chronic pain, nausea - Recommend continuation of daily weights, I/Os, and TPN - GI consultation placed 01/14 * Advised monitoring of H&H for worsening bleeding * Recommended scheduled simethicone * Indicated potential for discomfort 2/2 colonoscopy 2/2 trapped air * Indicated possible presence of diversion colitis * Low threshold for transferring patient to GI team at [facility] if clinical picture worsens (2) Adrenal insufficiency: (3) Gastroparesis: (4) Gastrostomy tube in place: (5) Intestinal motility disorder: (6) Nausea: (7) On total parenteral nutrition (TPN): (8) SMAS (superior mesenteric artery syndrome): Plan Dispo: Med/surg DVT ppx: SCDs Diet: TPN, PO as tolerated Code: Full Admission and Anticipated Discharge Date Admission Date: January 15, 2022 Subjective pt has persistent nausea, is having some abdominal pain, 01/24 started short chain fatty acid enemas. mother at bedside and updated pain seems to be stoma related, pt if still issue will evaluate stoma Review of Systems Review of Systems: Mild to moderate distress and fatigue no headache, no visual changes no speech or swallowing issues no chest pain, pressure or palpitations no shortness of breath, cough or wheezes diffuse abdominal pain, mild nausea or vomiting, pudding stool in ostomy bag no dysuria, hematuria or frequency no focal joint pain or swelling no back pain, CVA tenderness or radicular pain no bruising, bleeding or rashes no focal signs of weakness or numbness or altered sensation no complaints of anxiety or depression.. Physical Exam Physical Exam: The patient appeared thin and underweight, she is in moderate distress Vital signs as documented. Head exam is normocephalic atraumatic Neck is without JVD, thyromegaly, or carotid bruits. Lungs are clear to auscultation, no focal loss of breath sounds Cardiac exam, Rhythm is regular.. No murmurs, rubs or gallops. Abdominal exam reveals normal bowel sounds, soft , diffusely tender, functioning ostomy in mid abdomen Extremities are nonedematous and both pedal pulses are present Neurologic exam is alert and oriented, no focal loss of strength or sensation Skin is without bruises or rashes Psychologically is without concerns for anxiety or depression.. Results & Data Results & Data ([facility]) Vital Signs (Past 12 Hours) Vital Signs Temp Pulse Resp BP Pulse Ox O2 Del Method 01/24/22 14:27 98.1 F 88 16 107/73 99 Room Air 01/24/22 08:04 98.1 F 86 16 109/74 97 Room Air PG Care Time/CCT Total # of Minutes Spent Total Time Spent with Patient: Total time spent is greater than 50% in coordination of care (as documented) at patient's floor/unit and/or counseling patient: Coding Level of Care Code 60886 Subseq Hosp Care Lv 2 Diagnoses Abdominal pain, chronic, generalized R10.84; G89.29 Adrenal insufficiency E27.40 Gastroparesis K31.[address] Z93.1 Intestinal motility disorder K59.9 Nausea R11.0 On total parenteral nutrition (TPN) Z78.9 SMAS (superior mesenteric artery syndrome) K55.1
[2022-01-24] MEDS ORDERED: [UNRECOGNIZED DRUG - OTHER] IV SCH (21:00)
[2022-01-24] MEDS ORDERED: CENTRAL TPN IV SCH (21:00)
[2022-01-24] MEDS ORDERED: AMINO ACID 8% IV SCH (21:00)
[2022-01-24] MEDS: FEXOFENADINE HCL 180 MG TAB PO SCH (21:04)
[2022-01-24] MEDS: DICYCLOMINE HCL 10 MG CAP PO PRN (23:39)
[2022-01-25] MEDS ORDERED: FAT EMUL/SOY/MCT/OLIV/FISH OIL 50 GM/250 ML BAG IV SCH
[2022-01-25] MEDS ORDERED: HYDROmorphone INJ 0.5 MG/0.5 ML SYR IV STA ×3 (01:46→18:44)
[2022-01-25] MEDS ORDERED: DICYCLOMINE HCL 10 MG CAP PO ONE ×2 (01:48→01:51)
[2022-01-25] MEDS ORDERED: ACETAMINOPHEN IV STA (02:00)
[2022-01-25] MEDS: CIPROFLOXACIN / D5W 400 MG/200 ML BAG IV SCH (06:13)
[2022-01-25] MEDS: HYDROmorphone INJ 0.5 MG/0.5 ML SYR IV PRN ×4 (06:22→23:07)
[2022-01-25] MEDS: SIMETHICONE 80 MG CHEW PO SCH ×4 (06:44→23:04)
[2022-01-25] MEDS: LORazepam 0.5 MG in SYRINGE 0.25 ML IV PRN ×3 (06:44→23:23)
[2022-01-25] MEDS: [UNRECOGNIZED DRUG - REMARK] SCH (08:09)
[2022-01-25 09:03] LABS: BUN Creatinine Ratio 23.5 (10-20); Calcium 8.5 mg/dl (8.5-10.1); Est GFR (Non-African American) 117.4 ml/min; Magnesium 1.9 mg/dl (1.7-2.4); Phosphorus 3.6 mg/dl (2.5-4.9); Potassium 3.7 mmol/L (3.5-5.1)
[2022-01-25] MEDS: ONDANSETRON INJ 2 MG/ML 2 ML VIAL IV PRN ×2 (11:10→20:08)
[2022-01-25] MEDS: FAMOTIDINE 20 MG TAB PO SCH ×2 (11:11→21:09)
[2022-01-25] MEDS: HYDROCORTISONE 10 MG TAB PO SCH ×2 (11:12→15:18)
[2022-01-25] MEDS: PANTOprazole 40 MG TAB PO SCH (11:12)
[2022-01-25] MEDS: FLUDROCORTISONE ACETATE 0.1 MG TAB PO SCH ×2 (11:12→21:08)
[2022-01-25] MEDS: [UNRECOGNIZED DRUG - OTHER] PR SCH ×2 (11:34→21:10)
[2022-01-25] MEDS: GABAPENTIN 250 MG/5 ML 470 ML BTL PO SCH ×3 (11:34→21:09)
[2022-01-25] MEDS: HEPARIN 100 UNIT/ML 5ML FLUSH FLUSH PRN (15:00)
[2022-01-25] MEDS: STOP ORDER: TPN SCH (15:02)
--- NOTE | 2022-01-25 17:59 | Hospitalist Progress Note ---
Date of Service January 25, 2022 Assessment & Plan (1) Abdominal pain, chronic, generalized: Plan: Pilar is a 31 year old female with history of gastroparesis, SMA syndrome, adrenal insufficiency, and multiple abdominal surgeries (bowel resection, illeostomy, hysterectomy 2/2 endometriosis) who was admitted for increasing abdominal pain, blood per rectum, and blood per ostomy site following a colonoscopy. 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 pt believes her pain is from intermittent intussusception. 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 Patient has significant antibiotic allergies including penicillins, sulfas, trimethoprim, amoxicillin, and cephalosporins all with hives. Has tolerated vancomycin and clindamycin in the past. Cipro started evening of 01/20 continue this for trial of 5-day course Patient may require fentanyl patch till she is able to follow-up with potential transplants as noted below Nausea - Improved with simethicone - Continue Zofran - G tube venting as needed Adrenal insufficiency - Continue home regimen Severe protein-calorie malnutrition - Weight 48.2 kg, BMI 17 - Risk 2/2 gastroparesis, SMA syndrome, chronic pain, nausea - Recommend continuation of daily weights, I/Os, and TPN - GI consultation placed 01/14 * Advised monitoring of H&H for worsening bleeding * Recommended scheduled simethicone * Indicated potential for discomfort 2/2 colonoscopy 2/2 trapped air * Indicated possible presence of diversion colitis * Low threshold for transferring patient to GI team at [facility] if clinical picture worsens (2) Adrenal insufficiency: (3) Gastroparesis: (4) Gastrostomy tube in place: (5) Intestinal motility disorder: (6) Nausea: (7) On total parenteral nutrition (TPN): (8) SMAS (superior mesenteric artery syndrome): Plan Dispo: Med/surg DVT ppx: SCDs Diet: TPN, PO as tolerated Code: Full Admission and Anticipated Discharge Date Admission Date: January 15, 2022 Supervising Physician Co-Signing Physician Notes Patient seen and examined, chart reviewed, case discussed with Jodie Max, and I agree with the assessment and plan as above except as otherwise noted Labs and images reviewed Female seen at the bedside. Had severe pain in the same spot that she has been having pain last night, with a twisting pain. Is having trouble overnight as she wakes up after not pressing the button again pain which disturbs her sleep, reports pain is better controlled during the day but still is barely tolerable and overnight wakes up with intolerable pain. On exam abdomen remains tender, breathing is unlabored with symmetrical chest rise, patient appears tearful and in mild distress. 31-year-old female with no pain, suspected 2/[address] without acute findings, although suboptimal without contrast. Lactate normal Describes pain with a twisting quality. Patient does have a history of intussusception, and had an episode of twisting breakthrough pain at assessment, ultrasound without acute findings No gross electrolyte abnormalities. Patient does continue to have severe pain, particularly overnight. Given her persistent and continued pain preventing sleep and overall poorly controlled pain reasonable to trial a 50% basal rate and 50% push rate calculated on her average use. We will continue to follow, suspect given worsening pain and limited options at this facility patient will either require long-term pain control and possible fentanyl patch versus transfer, although limited options for patient on transfer and she is still pending evaluation and enrollment for gastric transplant Agree with other management as above Subjective pt has persistent nausea, is having some abdominal pain, 01/24 started short chain fatty acid enemas without much improvement. mother at bedside and updated did explore ostomy today seems to have very sensitive area inthe 3-6 oclock position with very mild soft tissue firmness there this provoked fairly significnat pain response Review of Systems Review of Systems: moderate to severe distress and fatigue no headache, no visual changes no speech or swallowing issues no chest pain, pressure or palpitations no shortness of breath, cough or wheezes significant abdominal pain, with nausea but no vomiting does have venting gastrostomy tube no dysuria, hematuria or frequency no focal joint pain or swelling no back pain, CVA tenderness or radicular pain no bruising, bleeding or rashes no focal signs of weakness or numbness or altered sensation no complaints of anxiety or depression.. Physical Exam Physical Exam: The patient appeared thin and underweight, she is in moderate distress Vital signs as documented. Head exam is normocephalic atraumatic Neck is without JVD, thyromegaly, or carotid bruits. Lungs are clear to auscultation, no focal loss of breath sounds Cardiac exam, Rhythm is regular.. No murmurs, rubs or gallops. Abdominal exam reveals normal bowel sounds, soft , diffusely tender, functioning ostomy in mid abdomen ostomy looks very good and well cared for opening expored gently with gloved pinky finger, not overly tight, no stool or mass or hernia noted there is a soft tissue fullness outside the stoma, between the stoma and the midline incision, very tender to patient Extremities are nonedematous and both pedal pulses are present Neurologic exam is alert and oriented, no focal loss of strength or sensation Skin is without bruises or rashes Psychologically is without concerns for anxiety or depression.. Results & Data Results & Data ([facility]) Vital Signs (Past 12 Hours) Vital Signs Temp Pulse Resp BP BP Pulse Ox O2 Del Method 01/25/22 16:01 97.9 F 94 H 12 98/62 L 97 Room Air 01/25/22 12:19 98.1 F 89 16 103/69 98 Room Air 01/25/22 07:28 98.1 F 94 H 12 94/60 L 98 Room Air 01/25/22 06:17 97.9 F 91 H 14 100/69 98 Room Air PG Care Time/CCT Total # of Minutes Spent Total Time Spent with Patient: Total time spent is greater than 50% in coordination of care (as documented) at patient's floor/unit and/or counseling patient: Coding Level of Care Code 07076 Subseq Hosp Care Lvl 2 Diagnoses Abdominal pain, chronic, generalized R10.84; G89.29 Adrenal insufficiency E27.40 Gastroparesis K31.[address] Z93.1 Intestinal motility disorder K59.9 Nausea R11.0 On total parenteral nutrition (TPN) Z78.9 SMAS (superior mesenteric artery syndrome) K55.1
[2022-01-25] MEDS: HYDROmorphone PCA 30 MG/30 ML IV PRN (18:23)
[2022-01-25] MEDS: SODIUM CHLORIDE 0.9% 1000ML 1,000 ML IV SCH (18:41)
[2022-01-25] MEDS ORDERED: AMINO ACID 8% IV SCH (21:00)
[2022-01-25] MEDS ORDERED: [UNRECOGNIZED DRUG - OTHER] IV SCH (21:00)
[2022-01-25] MEDS ORDERED: CENTRAL TPN IV SCH (21:00)
[2022-01-25] MEDS: FEXOFENADINE HCL 180 MG TAB PO SCH (21:09)
[2022-01-25] MEDS: DICYCLOMINE HCL 10 MG CAP PO PRN (23:04)
[2022-01-26] MEDS ORDERED: FAT EMUL/SOY/MCT/OLIV/FISH OIL 50 GM/250 ML BAG IV SCH
[2022-01-26] MEDS: HYDROmorphone INJ 0.5 MG/0.5 ML SYR IV PRN ×5 (03:13→23:15)
[2022-01-26] MEDS: ONDANSETRON INJ 2 MG/ML 2 ML VIAL IV PRN ×3 (03:14→18:21)
[2022-01-26] MEDS: LORazepam 0.5 MG in SYRINGE 0.25 ML IV PRN ×2 (06:10→13:34)
[2022-01-26] MEDS: SIMETHICONE 80 MG CHEW PO SCH ×3 (06:11→18:19)
[2022-01-26 06:44] LABS: BUN Creatinine Ratio 24.2 (10-20); Calcium 8.7 mg/dl (8.5-10.1); Creatinine Clr Calc Pharmacy 96.8 ml/min; Est GFR (African American) 137.4 ml/min; Est GFR (Non-African American) 118.5 ml/min; Magnesium 2.1 mg/dl (1.7-2.4); Phosphorus 4.4 mg/dl (2.5-4.9); Potassium 3.8 mmol/L (3.5-5.1)
--- NOTE | 2022-01-26 07:34 | Hospitalist Progress Note ---
Date of Service January 26, 2022 Assessment & Plan (1) Abdominal pain, chronic, generalized: Plan: Pilar is a 31 year old female with history of gastroparesis, SMA syndrome, adrenal insufficiency, and multiple abdominal surgeries (bowel resection, illeostomy, hysterectomy 2/2 endometriosis) who was admitted for increasing abdominal pain, blood per rectum, and blood per ostomy site following a colonoscopy. 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 pt believes her pain is from intermittent intussusception. 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 Patient has significant antibiotic allergies including penicillins, sulfas, trimethoprim, amoxicillin, and cephalosporins all with hives. Has tolerated vancomycin and clindamycin in the past. Cipro started evening of 01/20 complete, ostomy looks good Nausea - Improved with simethicone - Continue Zofran - G tube venting as needed Adrenal insufficiency - Continue home regimen of fludricortisone, will check am cortisol 01/27 Severe protein-calorie malnutrition - Weight 48.2 kg, BMI 17 - Risk 2/2 gastroparesis, SMA syndrome, chronic pain, nausea - Recommend continuation of daily weights, I/Os, and TPN - GI consultation placed 01/14 * Advised monitoring of H&H for worsening bleeding * Recommended scheduled simethicone * Indicated potential for discomfort 2/2 colonoscopy 2/2 trapped air * Indicated possible presence of diversion colitis * Low threshold for transferring patient to GI team at [facility] if clinical picture worsens (2) Adrenal insufficiency: (3) Gastroparesis: (4) Gastrostomy tube in place: (5) Intestinal motility disorder: (6) Nausea: (7) On total parenteral nutrition (TPN): (8) SMAS (superior mesenteric artery syndrome): Plan Dispo: Med/surg DVT ppx: SCDs Diet: TPN, PO as tolerated Code: Full Admission and Anticipated Discharge Date Admission Date: January 15, 2022 Subjective Pts abdominal pain seems worse since inspection of ostomy, it examined normally no stool ball and no sign of issue, no stricture 01/24 started short chain fatty acid enemas without much improvement. mother at bedside and updated did have release of information from [facility] to get records Review of Systems Review of Systems: moderate to severe distress and fatigue no headache, no visual changes no speech or swallowing issues no chest pain, pressure or palpitations no shortness of breath, cough or wheezes significant abdominal pain, with nausea but no vomiting does have venting gastrostomy tube no dysuria, hematuria or frequency no focal joint pain or swelling no back pain, CVA tenderness or radicular pain no bruising, bleeding or rashes no focal signs of weakness or numbness or altered sensation no complaints of anxiety or depression.. Physical Exam Physical Exam: The patient appeared thin and underweight, she is in moderate distress Vital signs as documented. Head exam is normocephalic atraumatic Neck is without JVD, thyromegaly, or carotid bruits. Lungs are clear to auscultation, no focal loss of breath sounds Cardiac exam, Rhythm is regular.. No murmurs, rubs or gallops. Abdominal exam reveals normal bowel sounds, soft , diffusely tender, functioning ostomy in mid abdomen ostomy looks very good and well cared for opening expored gently with gloved pinky finger, not overly tight, no stool or mass or hernia noted there is a soft tissue fullness outside the stoma, between the stoma and the midline incision, very tender to patient Extremities are nonedematous and both pedal pulses are present Neurologic exam is alert and oriented, no focal loss of strength or sensation Skin is without bruises or rashes Psychologically is without concerns for anxiety or depression.. Results & Data Results & Data ([facility]) Vital Signs (Past 12 Hours) Vital Signs Temp Pulse Resp BP BP Pulse Ox O2 Del Method 01/26/22 05:59 98.1 F 84 16 106/70 97 Room Air 01/26/22 00:09 98.1 F 73 16 109/74 98 Room Air 01/25/22 20:11 97.9 F 88 18 109/76 97 Room Air PG Care Time/CCT Total # of Minutes Spent Total Time Spent with Patient: Total time spent is greater than 50% in coordination of care (as documented) at patient's floor/unit and/or counseling patient: Coding Level of Care Code 62638 Subseq Hosp Care Lvl 2 Diagnoses Abdominal pain, chronic, generalized R10.84; G89.29 Adrenal insufficiency E27.40 Gastroparesis K31.[address] Z93.1 Intestinal motility disorder K59.9 Nausea R11.0 On total parenteral nutrition (TPN) Z78.9 SMAS (superior mesenteric artery syndrome) K55.1
[2022-01-26] MEDS: [UNRECOGNIZED DRUG - REMARK] SCH (08:40)
[2022-01-26] MEDS: PANTOprazole 40 MG TAB PO SCH (09:40)
[2022-01-26] MEDS: HYDROCORTISONE 10 MG TAB PO SCH ×2 (09:40→14:18)
[2022-01-26] MEDS: FAMOTIDINE 20 MG TAB PO SCH ×2 (09:41→21:00)
[2022-01-26] MEDS: FLUDROCORTISONE ACETATE 0.1 MG TAB PO SCH ×2 (09:41→21:01)
[2022-01-26] MEDS: GABAPENTIN 250 MG/5 ML 470 ML BTL PO SCH ×3 (09:42→21:06)
[2022-01-26] MEDS: [UNRECOGNIZED DRUG - OTHER] PR SCH ×2 (09:42→21:08)
[2022-01-26] MEDS: STOP ORDER: TPN SCH (15:03)
[2022-01-26] MEDS: HEPARIN 100 UNIT/ML 5ML FLUSH FLUSH PRN ×2 (15:03→21:18)
[2022-01-26] MEDS ORDERED: CENTRAL TPN IV SCH (21:00)
[2022-01-26] MEDS: FEXOFENADINE HCL 180 MG TAB PO SCH (21:00)
[2022-01-26] MEDS ORDERED: [UNRECOGNIZED DRUG - OTHER] IV SCH (21:00)
[2022-01-26] MEDS ORDERED: AMINO ACID 8% IV SCH (21:00)
[2022-01-26] MEDS: DICYCLOMINE HCL 10 MG CAP PO PRN (23:15)
[2022-01-27] MEDS ORDERED: FAT EMUL/SOY/MCT/OLIV/FISH OIL 50 GM/250 ML BAG IV SCH
[2022-01-27] MEDS: LORazepam 0.5 MG in SYRINGE 0.25 ML IV PRN ×4 (00:26→23:42)
[2022-01-27] MEDS: SIMETHICONE 80 MG CHEW PO SCH ×5 (00:26→23:43)
[2022-01-27] MEDS ORDERED: HYDROmorphone INJ 0.5 MG/0.5 ML SYR IV STA (02:29)
[2022-01-27] MEDS: HYDROmorphone INJ 0.5 MG/0.5 ML SYR IV PRN ×5 (06:41→20:24)
[2022-01-27] MEDS: FAMOTIDINE 20 MG TAB PO SCH ×2 (07:45→21:15)
[2022-01-27] MEDS: [UNRECOGNIZED DRUG - REMARK] SCH (07:45)
[2022-01-27] MEDS: HYDROCORTISONE 10 MG TAB PO SCH ×2 (07:46→14:04)
[2022-01-27] MEDS: FLUDROCORTISONE ACETATE 0.1 MG TAB PO SCH ×2 (07:46→21:16)
[2022-01-27] MEDS: [UNRECOGNIZED DRUG - OTHER] PR SCH ×2 (07:48→21:17)
[2022-01-27] MEDS: PANTOprazole 40 MG TAB PO SCH (07:48)
[2022-01-27] MEDS: GABAPENTIN 250 MG/5 ML 470 ML BTL PO SCH ×3 (07:55→21:17)
[2022-01-27 08:05] LABS: Albumin Globulin Ratio 1.7 (0.9-2); Albumin Level 3.8 gm/dl (3.4-5.0); BUN Creatinine Ratio 32.4 (10-20); Bilirubin,Total 0.3 mg/dl (0.2-1.0); Calcium 8.9 mg/dl (8.5-10.1); Est GFR (Non-African American) 117.4 ml/min; Globulin 2.2 gm/dl (2.5-4.0); Potassium 3.7 mmol/L (3.5-5.1)
[2022-01-27] MEDS: SODIUM CHLORIDE 0.9% 1000ML 1,000 ML IV SCH ×2 (08:43→16:24)
[2022-01-27] MEDS: HYDROmorphone PCA 30 MG/30 ML IV PRN ×2 (10:32→19:19)
[2022-01-27] MEDS: ONDANSETRON INJ 2 MG/ML 2 ML VIAL IV PRN ×2 (11:17→20:24)
[2022-01-27] MEDS: STOP ORDER: TPN SCH (15:00)
[2022-01-27] MEDS: HEPARIN 100 UNIT/ML 5ML FLUSH FLUSH PRN (15:05)
--- NOTE | 2022-01-27 17:35 | Hospitalist Progress Note ---
Date of Service January 27, 2022 Assessment & Plan (1) Abdominal pain, chronic, generalized: Plan: Pilar is a 31 year old female with history of gastroparesis, SMA syndrome, adrenal insufficiency, and multiple abdominal surgeries (bowel resection, illeostomy, hysterectomy 2/2 endometriosis) who was admitted for increasing abdominal pain, blood per rectum, and blood per ostomy site following a colonoscopy. 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 pt believes her pain is from intermittent intussusception. there is some stool in cecum and ascending colon with decompressed descending colon, not clear if this is making her feel pain, in the past Gastroenterology said on colonsocopy this was not stool but mucus that has thickened - [employer] Pump adjusted 01/18: [employer] Dose 0.3 mg, Lock Out 15 minutes, Continuous Dose 0, 1 hour max optional - Continue Dilaudid 0.25 mg Q4H PRN for breakthrough pain - Short Chain Fatty Acid enema is treatment for diversion colitis, but thus far without significant change or improvement and some rectal pain afterward ostomy examined and looks great, but this kicked up pain too Patient G-tube site, ostomy looks good no need for further antibiotics spoke to [place] Dr Hill in Gastroenterology motility, he confirms that she does have motility issues but her experience of pain is out of porportion to her motility, the attempt of ileosomy was to improve motility but should not be associated with as much pain as she is experiencing, he is comfortable with Relistor if we want to try it Nausea - Improved with simethicone - Continue Zofran - G tube venting as needed, has to vent more frequently today Adrenal insufficiency - Continue home regimen of fludricortisone, will check am cortisol 01/27 Severe protein-calorie malnutrition - Weight 48.2 kg, BMI 17 - Risk 2/2 gastroparesis, SMA syndrome, chronic pain, nausea - Recommend continuation of daily weights, I/Os, and TPN - GI consultation placed 01/14 * Indicated possible presence of diversion colitis * Low threshold for transferring patient to GI team at [facility] if clinical picture worsens (2) Adrenal insufficiency: Plan: check am cortisol (3) Gastroparesis: (4) Gastrostomy tube in place: (5) Intestinal motility disorder: (6) Nausea: (7) On total parenteral nutrition (TPN): (8) SMAS (superior mesenteric artery syndrome): Plan Dispo: Med/surg DVT ppx: SCDs Diet: TPN, PO as tolerated Code: Full Admission and Anticipated Discharge Date Admission Date: January 15, 2022 Subjective Pts abdominal pain seems worse since inspection of ostomy, it examined normally no stool ball and no sign of issue, no stricture 01/24 started short chain fatty acid enemas without much improvement but the patient has some pain afterward. mother at bedside and updated did have release of information from [facility] to get records, did call Dr Hill at [place] he stated to keep the treatment minimize opiates, supportive care and that her Transplant workup is in the very beginning process Review of Systems Review of Systems: moderate to severe distress and fatigue no headache, no visual changes no speech or swallowing issues no chest pain, pressure or palpitations no shortness of breath, cough or wheezes significant abdominal pain, with nausea but no vomiting does have venting gastrostomy tube no dysuria, hematuria or frequency no focal joint pain or swelling no back pain, CVA tenderness or radicular pain no bruising, bleeding or rashes no focal signs of weakness or numbness or altered sensation no complaints of anxiety or depression.. Physical Exam Physical Exam: The patient appeared thin and underweight, she is in moderate distress Vital signs as documented. Head exam is normocephalic atraumatic Neck is without JVD, thyromegaly, or carotid bruits. Lungs are clear to auscultation, no focal loss of breath sounds Cardiac exam, Rhythm is regular.. No murmurs, rubs or gallops. Abdominal exam reveals normal bowel sounds, soft , diffusely tender, functioning ostomy in mid abdomen ostomy looks very good and well cared for opening expored gently with gloved pinky finger, not overly tight, no stool or mass or hernia noted there is a soft tissue fullness outside the stoma, between the stoma and the midline incision, very tender to patient Extremities are nonedematous and both pedal pulses are present Neurologic exam is alert and oriented, no focal loss of strength or sensation Skin is without bruises or rashes Psychologically is without concerns for anxiety or depression.. Results & Data Results & Data ([facility]) Vital Signs (Past 12 Hours) Vital Signs Temp Pulse Resp BP BP Pulse Ox O2 Del Method 01/27/22 15:18 98.1 F 84 12 100/69 95 Room Air 01/27/22 08:00 Room Air 01/27/22 07:29 98.1 F 82 12 99/65 L 96 Room Air PG Care Time/CCT Total # of Minutes Spent Total Time Spent with Patient: Total time spent is greater than 50% in coordination of care (as documented) at patient's floor/unit and/or counseling patient: Coding Level of Care Code 97329 Subseq Hosp Care Lvl 2 Diagnoses Abdominal pain, chronic, generalized R10.84; G89.29 Adrenal insufficiency E27.40 Gastroparesis K31.[address] Z93.1 Intestinal motility disorder K59.9 Nausea R11.0 On total parenteral nutrition (TPN) Z78.9 SMAS (superior mesenteric artery syndrome) K55.1
[2022-01-27] MEDS ORDERED: [UNRECOGNIZED DRUG - OTHER] IV SCH (21:00)
[2022-01-27] MEDS ORDERED: QUEtiapine FUMARATE 25 MG TABLET PO ONE (21:00)
[2022-01-27] MEDS ORDERED: CENTRAL TPN IV SCH (21:00)
[2022-01-27] MEDS ORDERED: AMINO ACID 8% IV SCH (21:00)
[2022-01-27] MEDS: FEXOFENADINE HCL 180 MG TAB PO SCH (21:17)
[2022-01-27] MEDS: DICYCLOMINE HCL 10 MG CAP PO PRN (23:42)
[2022-01-28] MEDS: HYDROmorphone INJ 0.5 MG/0.5 ML SYR IV PRN ×6 (00:24→23:21)
[2022-01-28] MEDS: ONDANSETRON INJ 2 MG/ML 2 ML VIAL IV PRN ×4 (02:49→19:29)
[2022-01-28] MEDS: SIMETHICONE 80 MG CHEW PO SCH ×3 (05:04→17:36)
[2022-01-28] MEDS: [UNRECOGNIZED DRUG - REMARK] SCH (06:54)
[2022-01-28] MEDS: HYDROmorphone PCA 30 MG/30 ML IV PRN ×3 (07:01→19:09)
[2022-01-28] MEDS: HYDROCORTISONE 10 MG TAB PO SCH ×2 (07:57→14:07)
[2022-01-28] MEDS: FAMOTIDINE 20 MG TAB PO SCH ×2 (07:57→21:18)
[2022-01-28] MEDS: FLUDROCORTISONE ACETATE 0.1 MG TAB PO SCH ×2 (07:58→21:18)
[2022-01-28] MEDS: PANTOprazole 40 MG TAB PO SCH (07:59)
[2022-01-28] MEDS: GABAPENTIN 250 MG/5 ML 470 ML BTL PO SCH ×3 (08:01→21:21)
[2022-01-28] MEDS: [UNRECOGNIZED DRUG - OTHER] PR SCH ×2 (08:01→21:21)
[2022-01-28] MEDS: STOP ORDER: TPN SCH (14:42)
[2022-01-28] MEDS: HEPARIN 100 UNIT/ML 5ML FLUSH FLUSH PRN (16:13)
[2022-01-28] MEDS ORDERED: LACTATED RINGER'S 1,000 ML IV SCH (17:15)
--- NOTE | 2022-01-28 17:24 | Hospitalist Progress Note ---
Date of Service January 28, 2022 Assessment & Plan (1) Abdominal pain, chronic, generalized: Plan: Pilar is a 31 year old female with history of gastroparesis, SMA syndrome, adrenal insufficiency, and multiple abdominal surgeries (bowel resection, illeostomy, hysterectomy 2/2 endometriosis) who was admitted for increasing abdominal pain, blood per rectum, and blood per ostomy site following a colonoscopy. 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 pt believes her pain is from intermittent intussusception. 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, but thus far without significant change or improvement and some rectal pain afterward ostomy examined and looks great, but this kicked up pain too Patient G-tube site, ostomy looks good no need for further antibiotics spoke to [place] Dr Hill in Gastroenterology motility, he confirms that she does have motility issues but her experience of pain is out of porportion to her motility, the attempt of ileosomy was to improve motility but should not be associated with as much pain as she is experiencing, he is comfortable with Relistor if we want to try it 01/[address] abd/pelvis to look for etiology of pain, I did ask Mariama cuellar about pt and she states that she has consulted in the past and does not feel that she has anything new to offer in treatment for this patient, will also order relistor Nausea persistent - Improved with simethicone - Continue Zofran - G tube venting as needed, has to vent more frequently today 01/28 asked for more ivf daily but does need another iv access, will consider Adrenal insufficiency - Continue home regimen of hydrocortisone/ fludricortisone, Severe protein-calorie malnutrition - Weight 48.2 kg, BMI 17 - Risk 2/2 gastroparesis, SMA syndrome, chronic pain, nausea - Recommend continuation of daily weights, I/Os, and TPN - GI consultation placed 01/14 * Indicated possible presence of diversion colitis * Low threshold for transferring patient to GI team at [facility] if clinical picture worsens (2) Adrenal insufficiency: Plan: check am cortisol (3) Gastroparesis: (4) Gastrostomy tube in place: (5) Intestinal motility disorder: (6) Nausea: (7) On total parenteral nutrition (TPN): (8) SMAS (superior mesenteric artery syndrome): Plan Dispo: Med/surg DVT ppx: SCDs Diet: TPN, PO as tolerated Code: Full Admission and Anticipated Discharge Date Admission Date: January 15, 2022 Subjective Pts abdominal pain seems worse since inspection of ostomy, it examined normally no stool ball and no sign of issue, no stricture 01/24 started short chain fatty acid enemas without much improvement but the patient has some pain afterward. mother at bedside and updated did have release of information from [facility] to get records, did call Dr Hill at [place] he stated to keep the treatment minimize opiates, supportive care and that her Transplant workup is in the very beginning process. he was in agreement of trial of relistor, Review of Systems Review of Systems: moderate to severe distress and fatigue no headache, no visual changes no speech or swallowing issues no chest pain, pressure or palpitations no shortness of breath, cough or wheezes significant abdominal pain, with nausea but no vomiting does have venting gastrostomy tube no dysuria, hematuria or frequency no focal joint pain or swelling no back pain, CVA tenderness or radicular pain no bruising, bleeding or rashes no focal signs of weakness or numbness or altered sensation no complaints of anxiety or depression.. Physical Exam Physical Exam: The patient appeared thin and underweight, she is in moderate distress Vital signs as documented. Head exam is normocephalic atraumatic Stoma and ostomy with small amount of liquid, venting gastrostomy tube draining to canister Extremities are nonedematous and both pedal pulses are present Neurologic exam is alert and oriented, no focal loss of strength or sensation Skin is without bruises or rashes Psychologically is without concerns for anxiety or depression.. Results & Data Results & Data ([facility]) Vital Signs (Past 12 Hours) Vital Signs Temp Pulse Resp BP Pulse Ox O2 Del Method 01/28/22 15:00 98.2 F 89 16 99/62 L 96 Room Air 01/28/22 10:58 97.9 F 70 16 104/73 98 Room Air 01/28/22 08:00 Room Air 01/28/22 07:37 98.1 F 69 16 92/62 L 98 Room Air PG Care Time/CCT Total # of Minutes Spent Total Time Spent with Patient: Total time spent is greater than 50% in coordination of care (as documented) at patient's floor/unit and/or counseling patient: Coding Level of Care Code 18193 Subseq Hosp Care Lvl 3 Diagnoses Abdominal pain, chronic, generalized R10.84; G89.29 Adrenal insufficiency E27.40 Gastroparesis K31.[address] Z93.1 Intestinal motility disorder K59.9 Nausea R11.0 On total parenteral nutrition (TPN) Z78.9 SMAS (superior mesenteric artery syndrome) K55.1
[2022-01-28] MEDS: METHYLNALTREXONE BROMIDE 12 MG/0.6 ML VIAL SQ SCH (17:36)
[2022-01-28] MEDS: LORazepam 0.5 MG in SYRINGE 0.25 ML IV PRN (18:23)
--- NOTE | 2022-01-28 19:41 | CT Scan Report ---
CT OF THE ABDOMEN AND PELVIS WITHOUT CONTRAST CLINICAL HISTORY: Unexplained abdominal pain. Possible intussusception. COMPARISON STUDY: CT of the abdomen and pelvis January 21, 2022. TECHNIQUE: Axial images of the abdomen and pelvis were obtained without IV contrast. Images were revi ewed in the axial, sagittal, and coronal planes. Automated exposure control was utilized for the jeremiah dy. A dose lowering technique was utilized adhering to the principles of ALARA. FINDINGS: Lung bases are unremarkable. No pneumatosis, free air or portal venous gas is present. Rodrigo rostomy tube is in place. There is no biliary ductal dilatation status post cholecystectomy. Unenhanc ed images of the liver, spleen, adrenal glands, kidneys and pancreas are unremarkable. There is no hy dronephrosis. There may be a few punctate right renal calculi. There are no ureteral calculi. A right lower quadrant ileostomy is noted. There is no evidence for a bowel obstruction. Trace fluid within the pelvis is similar to prior exams. Moderate amount of stool within the cecum and proximal ascendin g colon is similar to prior studies as well. There is no fluid collection to suggest an abscess. Eval uation of the abdomen and pelvis is suboptimal on this unenhanced exam. No acute fracture within the pelvis or hips. IMPRESSION: 1. No acute process within the abdomen or pelvis on unenhanced exam. No significant change since prio r CT. 2. Trace fluid within the pelvis. 3. Right lower quadrant ileostomy. No bowel obstruction. ACT 112: Negative or not required by law. Electronically signed by: Ruperto Lopez M.D. 01/28/2022 7:38 PM
[2022-01-28] MEDS ORDERED: HYDROmorphone INJ 0.5 MG/0.5 ML SYR IV STA (20:30)
[2022-01-28] MEDS ORDERED: AMINO ACID 8% IV SCH (21:00)
[2022-01-28] MEDS ORDERED: CENTRAL TPN IV SCH (21:00)
[2022-01-28] MEDS ORDERED: [UNRECOGNIZED DRUG - OTHER] IV SCH (21:00)
[2022-01-28] MEDS: FEXOFENADINE HCL 180 MG TAB PO SCH (21:17)
[2022-01-28] MEDS: DICYCLOMINE HCL 10 MG CAP PO PRN (22:10)
[2022-01-29] MEDS ORDERED: FAT EMUL/SOY/MCT/OLIV/FISH OIL 50 GM/250 ML BAG IV SCH
[2022-01-29] MEDS: SIMETHICONE 80 MG CHEW PO SCH ×5 (00:03→23:51)
[2022-01-29] MEDS: LORazepam 0.5 MG in SYRINGE 0.25 ML IV PRN ×4 (00:28→22:37)
[2022-01-29] MEDS: HYDROmorphone INJ 0.5 MG/0.5 ML SYR IV PRN ×5 (03:25→21:49)
[2022-01-29] MEDS: ONDANSETRON INJ 2 MG/ML 2 ML VIAL IV PRN ×2 (03:25→21:17)
[2022-01-29] MEDS: DICYCLOMINE HCL 10 MG CAP PO PRN ×2 (05:57→23:51)
[2022-01-29 06:29] LABS: Basophils # (auto) 0.06 K/uL (0-0.2); Basophils % (auto) 0.8 %; Eosinophils # (auto) 0.26 K/uL (0-0.50); Eosinophils % (auto) 3.4 %; Hematocrit (blood only) 36.1 % (34.1-44.9); Hemoglobin 12.1 g/dl (12.0-16.0); Immature Granulocytes # (auto) 0.02 K/uL (0.00-0.02); Immature Granulocytes % (auto) 0.3 %; Lymphocytes # (auto) 1.87 K/uL (1.2-3.4); Lymphocytes % (auto) 24.5 %; Mean Corpuscular Hemoglobin 31.7 pg (25.0-34.0); Mean Corpuscular Hgb Conc 33.5 g/dL (32.0-36.0); Mean Corpuscular Volume 94.5 fL (80.0-100.0); Mean Platelet Volume 11.1 fL (9.4-12.3); Monocytes # (auto) 0.79 K/uL (0.24-0.82); Monocytes % (auto) 10.3 %; Neutrophils # (auto) 4.64 K/uL (1.4-6.5); Neutrophils % (auto) 60.7 %; Platelet Count 267 K/uL (130-400); RDW Coefficient of Variation 11.8 % (11.5-14.5); RDW Standard Deviation 40.5 fL (36.4-46.3); Red Blood Count 3.82 M/uL (3.93-5.22); White Blood Count 7.64 K/ul (4.8-10.8)
[2022-01-29 06:54] LABS: Calcium 9.1 mg/dl (8.5-10.1); Creatinine Clr Calc Pharmacy 85.2 ml/min; Phosphorus 4.3 mg/dl (2.5-4.9); Potassium 4.2 mmol/L (3.5-5.1)
[2022-01-29] MEDS: HYDROmorphone PCA 30 MG/30 ML IV PRN ×3 (06:57→18:57)
[2022-01-29] MEDS: PANTOprazole 40 MG TAB PO SCH (08:07)
[2022-01-29] MEDS: [UNRECOGNIZED DRUG - REMARK] SCH (08:07)
[2022-01-29] MEDS: HYDROCORTISONE 10 MG TAB PO SCH ×2 (08:07→13:55)
[2022-01-29] MEDS: FLUDROCORTISONE ACETATE 0.1 MG TAB PO SCH ×2 (08:08→21:25)
[2022-01-29] MEDS: FAMOTIDINE 20 MG TAB PO SCH ×2 (08:09→21:25)
[2022-01-29] MEDS: GABAPENTIN 250 MG/5 ML 470 ML BTL PO SCH ×3 (08:09→21:25)
[2022-01-29] MEDS: [UNRECOGNIZED DRUG - OTHER] PR SCH ×2 (08:09→21:24)
[2022-01-29] MEDS: SODIUM CHLORIDE 0.9% 1000ML 1,000 ML IV SCH ×2 (08:11→16:27)
[2022-01-29] MEDS: STOP ORDER: TPN SCH (14:43)
[2022-01-29] MEDS: HEPARIN 100 UNIT/ML 5ML FLUSH FLUSH PRN (14:49)
[2022-01-29] MEDS ORDERED: [UNRECOGNIZED DRUG - OTHER] IV SCH (21:00)
[2022-01-29] MEDS ORDERED: AMINO ACID 8% IV SCH (21:00)
[2022-01-29] MEDS ORDERED: CENTRAL TPN IV SCH (21:00)
--- NOTE | 2022-01-29 21:17 | Hospitalist Progress Note ---
Date of Service January 29, 2022 Assessment & Plan (1) Abdominal pain, chronic, generalized: Plan: ACUTE ON CHRONIC. Known history of gastroparesis, SMA syndrome, adrenal insufficiency, severe GI tract motility disorder, and multiple abdominal surgeries (bowel resection, ileostomy creation, hysterectomy due to severe endometriosis). Recent colonoscopy at the [facility] showing biopsy-confirmed "diversion colitis." SCFA enemas BID - initiated 01/24/22. may take weeks to see improvement however. Next Rx beyond the enemas is topical mesalamine (per UpToDate). At this point I am uncertain if the acute pain is from diversion COLITIS or some other process. Abdominal Ultrasound without evidence of intussusception. Multiple CT abd/pelvis without acute pathology. Remains on [employer]OL [employer] UP OPERATOR Dilaudid with demand dose 0.25 mg, Lock Out 20 minutes, Continuous Dose 0.2mg/hr., Dr Means examined her ileostomy site and by report was healthy-appearing. He also spoke with [facility] - Dr Hill - Gastroenterology & motility clinic. Decision made to try relistor but this made her pain worse. I spoke today with her primary GI provider locally - Ashely DUENAS at [facility] - we both agree we should attempt transfer to [facility] for ongoing care. I attempted multiple times to call the [facility] without success (could not leave message, never got through to anyone, etc). Also attempted multiple times to call Dr Hill's office in [place] without success. Will attempt tomorrow. Ms Foster suggested we try solumedrol in raquel of her hydrocortisone - thus, will start 20mg BID IV of solumedrol. Check inflammatory markers in am. Cont enemas for diversion colitis. Unfortunately pain management at [facility] did not feel they could offer her anything to help with her pain. (2) Adrenal insufficiency: Plan: place HC on hold using solumedrol for #1 above (3) Gastroparesis: Plan: g-tube is connected to decompression/intermittent low-wall suction to help with nausea draining bile (4) Gastrostomy tube in place: (5) Intestinal motility disorder: Plan: as above (6) Nausea: Plan: ongoing (7) On total parenteral nutrition (TPN): Plan: appreciate pharmacy efforts and assistance lytes are stable labs again in am (8) SMAS (superior mesenteric artery syndrome): (9) Diversion colitis: Plan: recent dx at [facility] this summer see #1 above (10) Ileostomy status: 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 Admission and Anticipated Discharge Date Admission Date: January 15, 2022 Subjective lengthy discussion held with patient and her mother regarding care plan despite 2+ weeks of care and various Rx's she has had no significant progress remains on continuous TOOL [employer]ER SET UP OPERATOR dilaudid with ongoing abdominal pain located to the left of her ileostomy site was severe last pm with the relistor injection had "rough night" because of the pain she was very tearful throughout the visit stating she wanted to go home and can't take being here any longer we discussed potential transfer to [facility] given lack of improvement Adrián denies any pain in the high epigastric region or RUQ; no LLQ pain no rectal pain no rectal bleeding or diarrhea or discharge (has had such in the past) no improvement in abd pain with use of enemas for diversion colitis Review of Systems Review of Systems: gen - no fevers or chills; taking little by mouth - just liquids cv - no cp pulm - no cough - no dysuria or foul-smelling urine musculo - no joint aches or other pains skin - no rash Physical Exam Physical Exam: gen - thin, frail-appearing, not WD or WN mouth - no thrush, MMM heart - RRR, s1 s2, no murmur lungs - CTA b/l abd - g-tube in place, site clean; ileostomy right side of abdomen with liquid stool in bag; tender to palpation just to the left of her ileostomy but no peritoneal signs ext - no edema, pulses 2+ b/l skin - no rash psych - tearful, awake, alert, restricted affect Results & Data Results & Data ([facility]) Vital Signs (Past 12 Hours) Vital Signs Temp Pulse Resp BP Pulse Ox O2 Del Method 01/29/22 19:36 36.6 C 81 14 105/69 96 Room Air 01/29/22 14:58 36.6 C 100 H 16 91/62 L 96 Room Air 01/29/22 12:00 36.9 C 86 16 95/61 L 98 Room Air Laboratory Results Laboratory Results - last 24 hr 01/29/22 01/29/22 05:59 05:59 WBC 7.64 RBC 3.82 L Hgb 12.1 Hct 36.1 MCV 94.5 MCH 31.7 MCHC 33.5 RDW Std Deviation 40.5 RDW Coeff of Tim 11.8 Plt Count 267 MPV 11.1 Immature Gran % (Auto) 0.3 Neut % (Auto) 60.7 Lymph % (Auto) 24.5 Jay % (Auto) 10.3 Eos % (Auto) 3.4 Baso % (Auto) 0.8 Neut # (Auto) 4.64 Lymph # (Auto) 1.87 Jay # (Auto) 0.79 Eos # (Auto) 0.26 Baso # (Auto) 0.06 Immature Gran # (Auto) 0.02 Sodium 140 Potassium 4.2 Chloride 106 Carbon Dioxide 28 Anion Gap 6 BUN 24 H Creatinine 0.75 Est Cr Clr Drug Dosing 85.2 Est GFR ( Amer) 124.0 Est GFR (Non-Af Amer) 107.0 BUN/Creatinine Ratio 32.0 H Glucose 95 Calcium 9.1 Phosphorus 4.3 Magnesium 2.0 Lipase 43 PG Care Time/CCT Total # of Minutes Spent Total Time Spent with Patient: Total time spent is greater than 50% in coordination of care (as documented) at patient's floor/unit and/or counseling patient: Prolonged Care Time Prolonged Care Time: Yes Total Prolonged Care Time: 75 Coding Level of Care Code 33356 Subseq Hosp Care Lvl 3 (25 - SIGNIFICANT, SEPARATELY IDENTIFIABLE ) Diagnoses Abdominal pain, chronic, generalized R10.84; G89.29 Adrenal insufficiency E27.40 Gastroparesis K31.[address] Z93.1 Intestinal motility disorder K59.9 Nausea R11.0 On total parenteral nutrition (TPN) Z78.9 SMAS (superior mesenteric artery syndrome) K55.1 Diversion colitis K52.89 Ileostomy status Z93.2 Severe protein-calorie malnutrition E43 Jejunal intussusception K56.1 Additional Codes Prolonged Care Time - Prolonged Care Time: Yes ([id number])
[2022-01-29] MEDS: methylPREDNISolone 20 MG in SYRINGE 0 ML IV SCH (21:22)
[2022-01-29] MEDS: FEXOFENADINE HCL 180 MG TAB PO SCH (21:25)
[2022-01-30] MEDS ORDERED: FAT EMUL/SOY/MCT/OLIV/FISH OIL 50 GM/250 ML BAG IV SCH
[2022-01-30] MEDS: HYDROmorphone INJ 0.5 MG/0.5 ML SYR IV PRN ×6 (01:36→22:22)
[2022-01-30] MEDS: LORazepam 0.5 MG in SYRINGE 0.25 ML IV PRN ×3 (05:32→23:57)
[2022-01-30] MEDS: SIMETHICONE 80 MG CHEW PO SCH ×4 (05:33→23:59)
[2022-01-30 07:22] LABS: Anion Gap 6 (3-11); BUN Creatinine Ratio 36.9 (10-20); Blood Urea Nitrogen 24 mg/dl (6-23); C Reactive Protein < 0.50 mg/dl (0-0.5); Calcium 9.3 mg/dl (8.5-10.1); Carbon Dioxide 28 mmol/L (21-32); Chloride 104 mmol/L (98-107); Creatinine Clr Calc Pharmacy 98.3 ml/min; Est GFR (African American) 138.1 ml/min; Est GFR (Non-African American) 119.1 ml/min; Glucose 168 mg/dl (70-99(Fasting)); Phosphorus 3.2 mg/dl (2.5-4.9); Potassium 4.3 mmol/L (3.5-5.1); Sodium 138 mmol/L (136-145)
[2022-01-30] MEDS: [UNRECOGNIZED DRUG - REMARK] SCH (08:09)
[2022-01-30] MEDS: FLUDROCORTISONE ACETATE 0.1 MG TAB PO SCH ×2 (08:30→20:55)
[2022-01-30] MEDS: ONDANSETRON INJ 2 MG/ML 2 ML VIAL IV PRN ×3 (08:30→22:23)
[2022-01-30] MEDS: methylPREDNISolone 20 MG in SYRINGE 0 ML IV SCH ×2 (08:30→20:55)
[2022-01-30] MEDS: FAMOTIDINE 20 MG TAB PO SCH ×2 (08:31→20:55)
[2022-01-30] MEDS: PANTOprazole 40 MG TAB PO SCH (08:31)
[2022-01-30] MEDS: METHYLNALTREXONE BROMIDE 12 MG/0.6 ML VIAL SQ SCH (08:31)
[2022-01-30] MEDS: GABAPENTIN 250 MG/5 ML 470 ML BTL PO SCH ×3 (08:31→20:56)
[2022-01-30] MEDS: [UNRECOGNIZED DRUG - OTHER] PR SCH ×2 (08:32→20:56)
[2022-01-30] MEDS: HEPARIN 100 UNIT/ML 5ML FLUSH FLUSH PRN (15:03)
[2022-01-30] MEDS: STOP ORDER: TPN SCH (15:09)
[2022-01-30] MEDS: SODIUM CHLORIDE 0.9% 1000ML 1,000 ML IV SCH (16:24)
[2022-01-30] MEDS: FEXOFENADINE HCL 180 MG TAB PO SCH (20:55)
[2022-01-30] MEDS ORDERED: AMINO ACID 8% IV SCH (21:00)
[2022-01-30] MEDS ORDERED: CENTRAL TPN IV SCH (21:00)
[2022-01-30] MEDS ORDERED: [UNRECOGNIZED DRUG - OTHER] IV SCH (21:00)
--- NOTE | 2022-01-30 22:04 | Hospitalist Progress Note ---
Date of Service January 30, 2022 Assessment & Plan (1) Abdominal pain, chronic, generalized: Plan: ACUTE ON CHRONIC. Known history of gastroparesis, SMA syndrome, adrenal insufficiency, severe GI tract motility disorder, and multiple abdominal surgeries (bowel resection, ileostomy creation, hysterectomy due to severe endometriosis). Recent colonoscopy of her disconnected colon at the [facility] showed biopsy- confirmed "diversion colitis." SCFA enemas BID - initiated 01/24/22. may take weeks to see improvement however. Next Rx beyond the enemas is topical mesalamine (per UpToDate). At this point I am uncertain if the acute pain is from diversion COLITIS or some other process. Abdominal Ultrasound without evidence of intussusception. Multiple CT abd/pelvis without acute pathology. Remains on PREHEMMER Dilaudid with demand dose 0.25 mg, Lock Out 20 minutes, Continuous Dose 0.2mg/hr. -- needing a demand dose about 1x/hour. Dr Means examined her ileostomy site and by report was healthy-appearing. He also spoke with [facility] - Dr Hill - Gastroenterology & motility clinic. Decision made to try relistor but this made her pain worse. Will not reattempt. I spoke with her primary GI provider locally - Ashely DUENAS at [facility]. Ms Foster suggested we try solumedrol in raquel of her hydrocortisone - thus, started 20mg BID IV of solumedrol. Cont enemas for diversion colitis. CRP/sed rate today noted to be normal. Unfortunately pain management at [facility] did not feel they could offer her anything to help with her pain. Called [facility] today - she is accepted in transfer; likely to take several days for bed. Patient/mother aware of this. (2) Adrenal insufficiency: Plan: place HC on hold using solumedrol for #1 above (3) Gastroparesis: Plan: g-tube is connected to decompression/intermittent low-wall suction to help with nausea draining bile I/O balance is acceptable at this time based on labs (4) Gastrostomy tube in place: (5) Intestinal motility disorder: Plan: as above (6) Nausea: Plan: ongoing (7) On total parenteral nutrition (TPN): Plan: appreciate pharmacy efforts and assistance lytes are stable labs again in am (8) SMAS (superior mesenteric artery syndrome): (9) Diversion colitis: Plan: recent dx at [facility] this summer see #1 above (10) Ileostomy status: Plan: no issues at this time need for ileoscopy at the [facility]? 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 - but none seen on multiple CTs and u/s this admission (13) DVT prophylaxis: Plan: start lovenox 30mg once daily in AM high risk of DVT - prolonged immobility, recurrent hospitalizations, travel, etc Plan called [facility] transfer center today spoke with Dr Sukhjinder Doty, [facility] Pilar was accepted in transfer to [facility] given ongoing abd pain, etc available bed not anticipated for several days we can call daily for bed update at [phone] total care coordination time today about 50 minutes most of which was spent speaking with [facility] Admission and Anticipated Discharge Date Admission Date: January 15, 2022 Subjective no new events overnight abd pain about the same or slightly better had better night last night according to staff she is using demand dosing of the PREHEMMER about 1x/hr g-tube still hooked to intermittent, low-wall suction with bilious drainage denies rectal pain denies rectal discharge still using enemas BID ileostomy output - emptied bag twice today which is about average I called and spoke with [facility] - they have accepted her in transfer I updated Adrián and her mother at bedside today Review of Systems Review of Systems: gen - no fevers, no chills, energy fair cv - no cp pulm - no cough, no dyspnea GI - no change in abd pain - maybe slightly better; no vomiting; ongoing, intermitten nausea Physical Exam Physical Exam: gen - thin, frail-appearing, not WD or WN, otherwise NAD and unchanged heart - RRR, s1 s2, no murmur lungs - CTA b/l abd - g-tube in place, site clean; ileostomy right side of abdomen with liquid stool in bag; nontender to palpation today ext - no edema, pulses 2+ b/l skin - no rash psych - no tearfulness today; awake, alert but restricted affect Results & Data Results & Data ([facility]) Vital Signs (Past 12 Hours) Vital Signs Temp Pulse Resp BP Pulse Ox O2 Del Method 01/30/22 20:08 36.7 C 76 15 100/62 98 Room Air 01/30/22 10:39 36.8 C 82 16 98/62 L 97 Room Air Laboratory Results Laboratory Results - last 24 hr 01/30/22 01/30/22 05:38 05:38 ESR 9 Sodium 138 Potassium 4.3 Chloride 104 Carbon Dioxide 28 Anion Gap 6 BUN 24 H Creatinine 0.65 Est Cr Clr Drug Dosing 98.3 Est GFR ( Amer) 138.1 Est GFR (Non-Af Amer) 119.1 BUN/Creatinine Ratio 36.9 H Glucose 168 H Calcium 9.3 Phosphorus 3.2 D Magnesium 2.0 C-Reactive Protein < 0.50 PG Care Time/CCT Total # of Minutes Spent Total Time Spent with Patient: Total time spent is greater than 50% in coordination of care (as documented) at patient's floor/unit and/or counseling patient: Coding Level of Care Code 34376 Subseq Hosp Care Lvl 3 Diagnoses Abdominal pain, chronic, generalized R10.84; G89.29 Adrenal insufficiency E27.40 Gastroparesis K31.[address] Z93.1 Intestinal motility disorder K59.9 Nausea R11.0 On total parenteral nutrition (TPN) Z78.9 SMAS (superior mesenteric artery syndrome) K55.1 Diversion colitis K52.89 Ileostomy status Z93.2 Severe protein-calorie malnutrition E43 Jejunal intussusception K56.1 DVT prophylaxis Z29.9
[2022-01-30] MEDS: DICYCLOMINE HCL 10 MG CAP PO PRN (23:41)
[2022-01-31] MEDS ORDERED: FAT EMUL/SOY/MCT/OLIV/FISH OIL 50 GM/250 ML BAG IV SCH
[2022-01-31] MEDS: HYDROmorphone INJ 0.5 MG/0.5 ML SYR IV PRN ×3 (02:12→11:08)
[2022-01-31] MEDS ORDERED: HYDROmorphone INJ 0.5 MG/0.5 ML SYR IV STA (02:30)
[2022-01-31] MEDS: SIMETHICONE 80 MG CHEW PO SCH ×3 (05:48→17:47)
[2022-01-31] MEDS: ONDANSETRON INJ 2 MG/ML 2 ML VIAL IV PRN ×3 (06:49→21:02)
[2022-01-31 07:23] LABS: BUN Creatinine Ratio 29.3 (10-20); Calcium 9.1 mg/dl (8.5-10.1); Creatinine Clr Calc Pharmacy 85.2 ml/min; Magnesium 1.9 mg/dl (1.7-2.4); Phosphorus 3.3 mg/dl (2.5-4.9); Potassium 4.4 mmol/L (3.5-5.1)
[2022-01-31] MEDS: PANTOprazole 40 MG TAB PO SCH (08:02)
[2022-01-31] MEDS: FAMOTIDINE 20 MG TAB PO SCH ×2 (08:02→21:01)
[2022-01-31] MEDS: methylPREDNISolone 20 MG in SYRINGE 0 ML IV SCH ×2 (08:02→22:35)
[2022-01-31] MEDS: FLUDROCORTISONE ACETATE 0.1 MG TAB PO SCH ×2 (08:02→21:01)
[2022-01-31] MEDS: GABAPENTIN 250 MG/5 ML 470 ML BTL PO SCH ×3 (08:02→22:35)
[2022-01-31] MEDS: ENOXAPARIN INJ 30 MG/0.3 ML SYR SQ SCH (08:03)
[2022-01-31] MEDS: [UNRECOGNIZED DRUG - REMARK] SCH (08:03)
[2022-01-31] MEDS: [UNRECOGNIZED DRUG - OTHER] PR SCH ×2 (08:04→21:02)
[2022-01-31] MEDS: LORazepam 0.5 MG in SYRINGE 0.25 ML IV PRN (14:23)
[2022-01-31] MEDS: HEPARIN 100 UNIT/ML 5ML FLUSH FLUSH PRN (15:15)
[2022-01-31] MEDS: STOP ORDER: TPN SCH (15:18)
[2022-01-31] MEDS: HYDROmorphone PCA 30 MG/30 ML IV PRN (15:24)
[2022-01-31] MEDS: SODIUM CHLORIDE 0.9% 1000ML 1,000 ML IV SCH (17:47)
--- NOTE | 2022-01-31 20:31 | Hospitalist Progress Note ---
Date of Service January 31, 2022 Assessment & Plan (1) Abdominal pain, chronic, generalized: Plan: ACUTE ON CHRONIC. Known history of gastroparesis, SMA syndrome, adrenal insufficiency, severe GI tract motility disorder, and multiple abdominal surgeries (bowel resection, ileostomy creation, hysterectomy due to severe endometriosis). Recent colonoscopy of her disconnected colon at the [facility] showed biopsy- confirmed "diversion colitis." SCFA enemas BID - initiated 01/24/22. may take weeks to see improvement however. Next Rx beyond the enemas is topical mesalamine (per UpToDate). At this point I am uncertain if the acute pain is from diversion COLITIS or some other process. Abdominal Ultrasound without evidence of intussusception. Multiple CT abd/pelvis without acute pathology. Remains on PILOT PLANT OPERATOR Dilaudid with demand dose 0.25 mg, Lock Out 20 minutes, Continuous Dose 0.2mg/hr. -- needing a demand dose about 1x/hour. IV prn dilaudid pushes discontinued; counseled patient & her mom that we typically only use the PILOT PLANT OPERATOR and try to avoid additional IV pain meds above/beyond the PILOT PLANT OPERATOR. Dr Means examined her ileostomy site earliest this week and by report was healthy-appearing. He also spoke with [facility] - Dr Hill - Gastroenterology & motility clinic. Decision made to try relistor but this made her pain worse. Will not reattempt. I spoke with her primary GI provider locally - Ashely DUENAS at [facility] - a few days ago. Ms Foster suggested we try solumedrol in raquel of her hydrocortisone - thus, started 20mg BID IV of solumedrol. Since starting such her overall appearance/wellbeing looks better. Cont enemas for diversion colitis. CRP/sed rate normal. Unfortunately pain management at [facility] did not feel they could offer her anything to help with her pain. Called [facility] 01/30/22 - she is accepted in transfer to their hospital for ongoing care; likely to take several days for bed. Patient/mother aware of this. (2) Adrenal insufficiency: Plan: placed HC on hold using solumedrol for #1 above (3) Gastroparesis: Plan: g-tube is connected to decompression/intermittent low-wall suction to help with nausea draining bile I/O balance is acceptable at this time based on labs (4) Gastrostomy tube in place: (5) Intestinal motility disorder: Plan: as above (6) Nausea: Plan: ongoing cont g-tube hooked to intermittent low-wall suction for decompression of stomach (7) On total parenteral nutrition (TPN): Plan: appreciate pharmacy assistance lytes are stable labs again in am (8) SMAS (superior mesenteric artery syndrome): Plan: h/o (9) Diversion colitis: Plan: recent dx at [facility] this summer see #1 above (10) Ileostomy status: Plan: no issues at this time need for ileoscopy at the [facility]? 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 - but none seen on multiple CTs and u/s this admission (13) DVT prophylaxis: Plan: lovenox 30mg once daily high risk of DVT - prolonged immobility, recurrent hospitalizations, travel, etc Plan called [facility] transfer center 01/[address] Sukhjinder Doty, hospital medicine Pilar was accepted in transfer to [facility] given ongoing abd pain, etc available bed not anticipated for several days we can call daily for bed update at [phone] her mother contacted the casting coordinator at [facility] - transplant team aware of pending transfer Admission and Anticipated Discharge Date Admission Date: January 15, 2022 Subjective no events abdominal pain is same or marginally better today no vomiting intermittent nausea at baseline g-tube still hooked up to intermittent LWS - bilious drainage ileostomy output similar to baseline - thin drainage cont on BID enemas via rectum - no bloody discharge or diarrhea Review of Systems Review of Systems: gen - no fevers, no chills; tolerating sips of clears only cv - no cp pulm - no cough or dyspnea GI - see HPI Physical Exam Physical Exam: gen - thin, frail-appearing, overall "color" appears better than a few days ago mouth - MMM, no obvious thrush heart - RRR, s1 s2, no murmur lungs - CTA b/l abd - g-tube in place, site clean; ileostomy right side of abdomen with liquid stool in bag; nontender to palpation; ND; midline scar ext - no edema, pulses 2+ b/l skin - no rash psych - affect morefull today Results & Data Results & Data ([facility]) Vital Signs (Past 12 Hours) Vital Signs Temp Pulse Resp BP Pulse Ox O2 Del Method 01/31/22 14:15 36.7 C 72 12 102/66 97 Room Air 01/31/22 11:41 36.9 C 87 16 90/53 L 97 Room Air Laboratory Results Laboratory Results - last 24 hr 01/31/22 06:44 Sodium 138 Potassium 4.4 Chloride 104 Carbon Dioxide 29 Anion Gap 5 BUN 22 Creatinine 0.75 Est Cr Clr Drug Dosing 85.2 Est GFR ( Amer) 124.0 Est GFR (Non-Af Amer) 107.0 BUN/Creatinine Ratio 29.3 H Glucose 164 H Calcium 9.1 Phosphorus 3.3 Magnesium 1.9 PG Care Time/CCT Total # of Minutes Spent Total Time Spent with Patient: Total time spent is greater than 50% in coordination of care (as documented) at patient's floor/unit and/or counseling patient: Coding Level of Care Code 70940 Subseq Hosp Care Lvl 2 Diagnoses Abdominal pain, chronic, generalized R10.84; G89.29 Adrenal insufficiency E27.40 Gastroparesis K31.[address] Z93.1 Intestinal motility disorder K59.9 Nausea R11.0 On total parenteral nutrition (TPN) Z78.9 SMAS (superior mesenteric artery syndrome) K55.1 Diversion colitis K52.89 Ileostomy status Z93.2 Severe protein-calorie malnutrition E43 Jejunal intussusception K56.1 DVT prophylaxis Z29.9
[2022-01-31] MEDS ORDERED: [UNRECOGNIZED DRUG - OTHER] IV SCH (21:00)
[2022-01-31] MEDS ORDERED: AMINO ACID 8% IV SCH (21:00)
[2022-01-31] MEDS ORDERED: CENTRAL TPN IV SCH (21:00)
[2022-01-31] MEDS: FEXOFENADINE HCL 180 MG TAB PO SCH (21:01)
[2022-02-01] MEDS ORDERED: FAT EMUL/SOY/MCT/OLIV/FISH OIL 50 GM/250 ML BAG IV SCH
[2022-02-01] MEDS: SIMETHICONE 80 MG CHEW PO SCH ×4 (00:07→17:05)
[2022-02-01] MEDS: DICYCLOMINE HCL 10 MG CAP PO PRN ×2 (00:08→11:18)
[2022-02-01] MEDS: LORazepam 0.5 MG in SYRINGE 0.25 ML IV PRN ×2 (00:35→11:36)
[2022-02-01] MEDS ORDERED: HYDROmorphone INJ 0.5 MG/0.5 ML SYR IV STA ×2 (01:03→06:11)
--- NOTE | 2022-02-01 06:13 | Communication Note ---
Date of Service: February 01, 2022 provided a now dose of Dilaudid 0.25 IV at 1AM and another at 6AM. Per nursing, patient stated veneer joiner pump was not functioning. Day team to assess.
[2022-02-01 06:46] LABS: Calcium 8.9 mg/dl (8.5-10.1); Creatinine Clr Calc Pharmacy 85.2 ml/min; Magnesium 1.9 mg/dl (1.7-2.4); Phosphorus 3.9 mg/dl (2.5-4.9); Potassium 4.1 mmol/L (3.5-5.1)
[2022-02-01] MEDS: ENOXAPARIN INJ 30 MG/0.3 ML SYR SQ SCH (08:11)
[2022-02-01] MEDS: methylPREDNISolone 20 MG in SYRINGE 0 ML IV SCH ×2 (08:11→21:38)
[2022-02-01] MEDS: [UNRECOGNIZED DRUG - REMARK] SCH (08:11)
[2022-02-01] MEDS: FAMOTIDINE 20 MG TAB PO SCH ×2 (08:12→21:36)
[2022-02-01] MEDS: GABAPENTIN 250 MG/5 ML 470 ML BTL PO SCH ×3 (08:12→21:37)
[2022-02-01] MEDS: FLUDROCORTISONE ACETATE 0.1 MG TAB PO SCH ×2 (08:12→21:37)
[2022-02-01] MEDS: [UNRECOGNIZED DRUG - OTHER] PR SCH ×2 (08:12→21:38)
[2022-02-01] MEDS: METHYLNALTREXONE BROMIDE 12 MG/0.6 ML VIAL SQ SCH (08:12)
[2022-02-01] MEDS: PANTOprazole 40 MG TAB PO SCH (08:12)
[2022-02-01] MEDS: STOP ORDER: TPN SCH (15:02)
[2022-02-01] MEDS: HEPARIN 100 UNIT/ML 5ML FLUSH FLUSH PRN (15:05)
[2022-02-01] MEDS: SODIUM CHLORIDE 0.9% 1000ML 1,000 ML IV SCH (17:05)
[2022-02-01] MEDS: ONDANSETRON INJ 2 MG/ML 2 ML VIAL IV PRN ×2 (17:51→21:46)
[2022-02-01] MEDS ORDERED: AMINO ACID 8% IV SCH (21:00)
[2022-02-01] MEDS ORDERED: [UNRECOGNIZED DRUG - OTHER] IV SCH (21:00)
[2022-02-01] MEDS ORDERED: CENTRAL TPN IV SCH (21:00)
--- NOTE | 2022-02-01 21:33 | Hospitalist Progress Note ---
Date of Service February 01, 2022 Assessment & Plan (1) Abdominal pain, chronic, generalized: Plan: ACUTE ON CHRONIC. Known history of gastroparesis, SMA syndrome, adrenal insufficiency, severe GI tract motility disorder, and multiple abdominal surgeries (bowel resection, ileostomy creation, hysterectomy due to severe endometriosis). Recent colonoscopy of her disconnected colon at the [facility] showed biopsy- confirmed "diversion colitis." SCFA enemas BID - initiated 01/24/22. may take weeks to see improvement with the enemas. Next Rx beyond the enemas is topical mesalamine (per UpToDate). At this point I am uncertain if the acute pain is from diversion COLITIS or some other process. Abdominal Ultrasound without evidence of intussusception. Multiple CT abd/pelvis without acute pathology. Remains on COLLEGE DEAN Dilaudid with demand dose 0.25 mg, Lock Out 20 minutes, Continuous Dose 0.2mg/hr. -- needing a demand dose about 1-2x/hour. She needed an additional IV bolus of 0.5mg x 1 this am. Given her current COLLEGE DEAN usage will change demand dose from 0.25mg to 0.35mg. re- eval tomorrow. Dr Means examined her ileostomy site earliest this week and by report was healthy-appearing. He also spoke with [facility] - Dr Hill - Gastroenterology & motility clinic. Decision made to try relistor but this made her pain worse. Will not reattempt. I spoke with her primary GI provider locally - Ashely DUENAS at [facility] - a few days ago. Ms Foster suggested we try solumedrol in raquel of her hydrocortisone - thus, started 20mg BID IV of solumedrol. Started PM of 01/29/22. Since starting such her overall appearance/wellbeing looks better. She seems better overall with the solumedrol. Cont enemas for diversion colitis. CRP/sed rate normal on 01/30/22. Unfortunately pain management at [facility] did not feel they could offer her anything to help with her pain. Called [facility] 01/30/22 - she is accepted in transfer to their hospital for ongoing care; likely to take several days for bed. Did call their transfer center today - they are hopeful for a bed this weekend. Patient/mother made aware of this. (2) Adrenal insufficiency: Plan: placed HC on hold using solumedrol for #1 above cont solumedrol + florinef (3) Gastroparesis: Plan: g-tube is connected to decompression/intermittent low-wall suction to help with nausea draining bile I/O balance remains acceptable at this time based on labs (4) Gastrostomy tube in place: Plan: no issues no signs of abd wall cellulitis or g-tube infection (5) Intestinal motility disorder: Plan: as above (6) Nausea: Plan: ongoing cont g-tube hooked to intermittent low-wall suction for decompression of stomach zofran prn; ativan prn; etc (7) On total parenteral nutrition (TPN): Plan: appreciate pharmacy assistance lytes are stable labs again in am cont TPN via PICC of note - current PICC was placed 10/2021 (8) SMAS (superior mesenteric artery syndrome): Plan: h/o (9) Diversion colitis: Plan: recent dx at [facility] this summer see #1 above cont enemas BID (10) Ileostomy status: Plan: no issues at this time need for ileoscopy at the [facility]? 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 her mother contacted the curriculum development coordinator at [facility] on 01/31 - transplant team aware of pending transfer Admission and Anticipated Discharge Date Admission Date: January 15, 2022 Subjective patient & her mother changed out her ileostomy bag today during such she had severe abd pain nursing contacted me - we had to give additional dilaudid bolus x 1 for such review of COLLEGE DEAN - from 7am to 11am today she had 10 demands of her dilaudid COLLEGE DEAN and received all 10 demands Pilar states she overall "feels a little better" with the IV solumedrol no new complaints I called and spoke with [facility] -- they are hopeful for a bed for her perhaps this weekend Review of Systems Review of Systems: gen - no fevers, chills; decent energy cv - no cp pulm - no dyspnea GI - abd pain about the same; occasional nausea; g-tube is hooked to intermittent low-wall suction Physical Exam Physical Exam: gen - thin, NAD, looks good today mouth - MMM, no obvious thrush heart - RRR, s1 s2, no murmur lungs - CTA b/l abd - g-tube in place, site clean - no drainage; ileostomy right side of abdomen with liquid stool in bag; stoma is pink; nontender to palpation any portion of abdomen today; ND; midline scar ext - no edema, pulses 2+ b/l skin - no rash; PICC line LUE clean psych - affect wnl today Results & Data Results & Data ([facility]) Vital Signs (Past 12 Hours) Vital Signs Temp Pulse Resp BP Pulse Ox O2 Del Method 02/01/22 20:09 36.8 C 68 16 116/77 98 Room Air 02/01/22 14:48 36.7 C 54 L 16 94/57 L 95 Room Air 02/01/22 11:14 36.6 C 57 L 16 96/60 L 96 Room Air Laboratory Results Laboratory Results - last 24 hr 02/01/22 05:38 Sodium 140 Potassium 4.1 Chloride 104 Carbon Dioxide 30 Anion Gap 6 BUN 24 H Creatinine 0.75 Est Cr Clr Drug Dosing 85.2 Est GFR ( Amer) 124.0 Est GFR (Non-Af Amer) 107.0 BUN/Creatinine Ratio 32.0 H Glucose 171 H Calcium 8.9 Phosphorus 3.9 Magnesium 1.9 PG Care Time/CCT Total # of Minutes Spent Total Time Spent with Patient: Total time spent is greater than 50% in coordination of care (as documented) at patient's floor/unit and/or counseling patient: Coding Level of Care Code 34477 Subseq Hosp Care Lvl 2 Diagnoses Abdominal pain, chronic, generalized R10.84; G89.29 Adrenal insufficiency E27.40 Gastroparesis K31.[address] Z93.1 Intestinal motility disorder K59.9 Nausea R11.0 On total parenteral nutrition (TPN) Z78.9 SMAS (superior mesenteric artery syndrome) K55.1 Diversion colitis K52.89 Ileostomy status Z93.2 Severe protein-calorie malnutrition E43 Jejunal intussusception K56.1 DVT prophylaxis Z29.9
[2022-02-01] MEDS: FEXOFENADINE HCL 180 MG TAB PO SCH (21:38)
[2022-02-02] MEDS ORDERED: FAT EMUL/SOY/MCT/OLIV/FISH OIL 50 GM/250 ML BAG IV SCH
[2022-02-02] MEDS: SIMETHICONE 80 MG CHEW PO SCH ×5 (00:09→23:59)
[2022-02-02] MEDS: DICYCLOMINE HCL 10 MG CAP PO PRN ×3 (00:09→23:10)
[2022-02-02] MEDS: LORazepam 0.5 MG in SYRINGE 0.25 ML IV PRN ×3 (00:10→23:58)
[2022-02-02] MEDS ORDERED: ACETAMINOPHEN 10MG/ML CUSTOM DOSING (PED, LOW WT) IV STA (02:21)
[2022-02-02] MEDS ORDERED: HYDROmorphone INJ 0.5 MG/0.5 ML SYR IV STA (02:21)
[2022-02-02] MEDS ORDERED: ACETAMINOPHEN 1000 MG/100 ML IV IV ONE ×2 (02:30→06:41)
[2022-02-02] MEDS ORDERED: HYDROmorphone INJ 0.5 MG/0.5 ML SYR ONE (02:31)
[2022-02-02] MEDS ORDERED: ACETAMINOPHEN 500 MG/50 ML VIAL IV ONE (02:45)
[2022-02-02] MEDS: HYDROmorphone PCA 30 MG/30 ML IV PRN ×2 (02:49→19:24)
[2022-02-02] MEDS: ONDANSETRON INJ 2 MG/ML 2 ML VIAL IV PRN ×3 (06:46→21:04)
[2022-02-02] MEDS: [UNRECOGNIZED DRUG - REMARK] SCH (08:25)
[2022-02-02 08:37] LABS: BUN Creatinine Ratio 30.6 (10-20); Calcium 8.8 mg/dl (8.5-10.1); Creatinine Clr Calc Pharmacy 88.7 ml/min; Est GFR (African American) 130.2 ml/min; Est GFR (Non-African American) 112.4 ml/min; Magnesium 2.1 mg/dl (1.7-2.4); Potassium 4.2 mmol/L (3.5-5.1)
[2022-02-02 09:00] LABS: Folate (Folic Acid) 1.89 ng/ml (>5.38)
[2022-02-02] MEDS: ENOXAPARIN INJ 30 MG/0.3 ML SYR SQ SCH (09:51)
[2022-02-02] MEDS: FAMOTIDINE 20 MG TAB PO SCH ×2 (09:51→21:15)
[2022-02-02] MEDS: FLUDROCORTISONE ACETATE 0.1 MG TAB PO SCH ×2 (09:52→21:14)
[2022-02-02] MEDS: methylPREDNISolone 20 MG in SYRINGE 0 ML IV SCH ×2 (09:53→21:04)
[2022-02-02] MEDS: PANTOprazole 40 MG TAB PO SCH (09:53)
[2022-02-02] MEDS: [UNRECOGNIZED DRUG - OTHER] PR SCH ×2 (09:57→21:14)
[2022-02-02] MEDS: GABAPENTIN 250 MG/5 ML 470 ML BTL PO SCH ×3 (09:57→21:14)
[2022-02-02] MEDS: FOLIC ACID 1 MG in SYRINGE 9.8 ML IV SCH (09:58)
[2022-02-02] MEDS: CYANOCOBALAMIN 1000 MCG/ML VIAL IM SCH (10:00)
[2022-02-02] MEDS: THIAMINE HCL 200 MG in SODIUM CHLORIDE 0.9% 50 ML IV SCH (11:21)
[2022-02-02] MEDS: HEPARIN 100 UNIT/ML 5ML FLUSH FLUSH PRN (15:28)
[2022-02-02] MEDS: STOP ORDER: TPN SCH (15:28)
[2022-02-02] MEDS: SODIUM CHLORIDE 0.9% 1000ML 1,000 ML IV SCH (17:52)
[2022-02-02] MEDS ORDERED: CENTRAL TPN IV SCH (21:00)
[2022-02-02] MEDS ORDERED: AMINO ACID 8% IV SCH (21:00)
[2022-02-02] MEDS ORDERED: [UNRECOGNIZED DRUG - OTHER] IV SCH (21:00)
[2022-02-02] MEDS: FEXOFENADINE HCL 180 MG TAB PO SCH (21:14)
--- NOTE | 2022-02-02 22:40 | Hospitalist Progress Note ---
Date of Service February 02, 2022 Assessment & Plan (1) Abdominal pain, chronic, generalized: Plan: ACUTE ON CHRONIC. Known history of gastroparesis, SMA syndrome, adrenal insufficiency, severe GI tract motility disorder, and multiple abdominal surgeries (bowel resection, ileostomy creation, hysterectomy due to severe endometriosis). Recent colonoscopy of her disconnected colon at the [facility] showed biopsy- confirmed "diversion colitis." SCFA enemas BID - initiated 01/24/22. may take weeks to see improvement with the enemas. Next Rx beyond the enemas is topical mesalamine (per UpToDate). At this point I am uncertain if the acute pain is from diversion COLITIS or some other process. Abdominal Ultrasound without evidence of intussusception. Multiple CT abd/pelvis without acute pathology. Remains on SILO ERECTOR Dilaudid with demand dose 0.35 mg, Lock Out 20 minutes, Continuous Dose 0.2mg/hr. On average has needed a demand dose about 1-2x/hour. No changes to settings today. Given her current SILO ERECTOR usage will change demand dose from 0.25mg to 0.35mg. re- eval tomorrow. Dr Means examined her ileostomy site earliest this week and by report was healthy-appearing. He also spoke with [facility] - Dr Hill - Gastroenterology & motility clinic. Decision made to try relistor but this made her pain worse. Will not reattempt. I spoke with her primary GI provider locally - Ashely DUENAS at [facility] - a few days ago. Ms Foster suggested we try solumedrol in raquel of her hydrocortisone - thus, started 20mg BID IV of solumedrol. Started PM of 01/29/22. Since starting such her overall appearance/wellbeing looks better. She seems better overall with the solumedrol. Cont enemas for diversion colitis. CRP/sed rate normal on 01/30/22. Unfortunately pain management at [facility] did not feel they could offer her anything to help with her pain. Called [facility] 01/30/22 - she is accepted in transfer to their hospital for ongoing care; likely to take several days for bed. Did call their transfer center again today - they now report that they have had a flood of admissions and bed is not anticipated until later this week. Patient/mother made aware of this. (2) Adrenal insufficiency: Plan: placed HC on hold using solumedrol for #1 above cont solumedrol + florinef (3) Gastroparesis: Plan: g-tube is connected to decompression/intermittent low-wall suction to help with nausea draining bile I/O balance remains acceptable at this time based on labs (4) Gastrostomy tube in place: Plan: no issues no signs of abd wall cellulitis or g-tube infection (5) Intestinal motility disorder: Plan: as above (6) Nausea: Plan: ongoing cont g-tube hooked to intermittent low-wall suction for decompression of stomach zofran prn; ativan prn; etc (7) On total parenteral nutrition (TPN): Plan: appreciate pharmacy assistance lytes are stable labs again in am cont TPN via PICC of note - current PICC was placed 10/2021 ast/alt in am trigs in am (8) SMAS (superior mesenteric artery syndrome): Plan: h/o (9) Diversion colitis: Plan: recent dx at [facility] this summer see #1 above cont enemas BID (10) Ileostomy status: Plan: no issues at this time stoma has been stable & healthy appearing (11) Severe protein-calorie malnutrition: Plan: cont TPN last albumin 3.8 several days ago also on clear liquids b12/folate def - see below (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 - but none seen on multiple CTs and u/s this admission (13) Folate deficiency: Plan: start folate 1mg IV daily (14) B12 deficiency: Plan: start B12 injections - 1000mcg IM daily x 5 days, then once weekly x 4 weeks, then monthly thereafter I would presume she is probably also B1 deficient - add additional thiamine 200mg IV daily (15) DVT prophylaxis: Plan: lovenox 30mg once daily high risk of DVT - prolonged immobility, recurrent hospitalizations, travel, etc Plan called [facility] transfer center 01/[address] Sukhjinder Doty, [facility] medicine Pilar was accepted in transfer to [facility] given ongoing abd pain, etc available bed not anticipated for several days bed update line --- [phone] her mother contacted the distance learning coordinator at [facility] on 01/31/22 - transplant team aware of pending transfer fatigue - watch for signs or additional symptoms of infection check u/a and urine cx offered to advance diet to full liquids - she does take yogurt, etc at times - she is agreeable Admission and Anticipated Discharge Date Admission Date: January 15, 2022 Subjective patient states she is tired and feels drained today no fevers, no chills minimal PO intake ( baseline, however ) no runny nose, congestion, sore throat, cough, dyspnea, chest complaints, vomiting, dysuria she does feel like she isn't emptying her bladder normally and that her urine is "slow" which is unusual for her but the urine isn't foul-smelling abd pain is about baseline today ileostomy output about normal g-tube still hooked to intermittent low-wall suction - all bilious drainage Review of Systems Review of Systems: gen - no fevers, chills, sweats - very tired/fatigued today psych - slept "ok" last pm musculo - no myalgias GI - see HPI CV - no chest pain neuro - no headache Physical Exam Physical Exam: gen - thin, NAD, looks same as previous mouth - MMM, no obvious thrush heart - RRR, s1 s2, no murmur lungs - CTA b/l abd - g-tube in place, site clean - no drainage; ileostomy right side of abdomen with liquid stool in bag; nontender to palpation; ND; midline scar ext - no edema, pulses 2+ b/l skin - no rash; PICC line LUE clean once again psych - affect restricted/unchanged Results & Data Results & Data ([facility]) Vital Signs (Past 12 Hours) Vital Signs Temp Pulse Resp BP Pulse Ox O2 Del Method 02/02/22 21:50 36.8 C 63 16 103/68 97 Room Air 02/02/22 14:51 36.7 C 72 16 103/72 97 Room Air 02/02/22 11:48 36.6 C 53 L 16 103/68 98 Room Air Laboratory Results Laboratory Results - last 24 hr 02/02/22 02/02/22 07:42 07:42 Sodium 139 Potassium 4.2 Chloride 104 Carbon Dioxide 31 Anion Gap 4 BUN 22 Creatinine 0.72 Est Cr Clr Drug Dosing 88.7 Est GFR ( Amer) 130.2 Est GFR (Non-Af Amer) 112.4 BUN/Creatinine Ratio 30.6 H Glucose 159 H Calcium 8.8 Phosphorus 4.0 Magnesium 2.1 Vitamin B12 225 Folate 1.89 L PG Care Time/CCT Total # of Minutes Spent Total Time Spent with Patient: Total time spent is greater than 50% in coordination of care (as documented) at patient's floor/unit and/or counseling patient: Coding Level of Care Code 82172 Subseq Hosp Care Lvl 3 Diagnoses Abdominal pain, chronic, generalized R10.84; G89.29 Adrenal insufficiency E27.40 Gastroparesis K31.[address] Z93.1 Intestinal motility disorder K59.9 Nausea R11.0 On total parenteral nutrition (TPN) Z78.9 SMAS (superior mesenteric artery syndrome) K55.1 Diversion colitis K52.89 Ileostomy status Z93.2 Severe protein-calorie malnutrition E43 Jejunal intussusception K56.1 Folate deficiency E53.8 B12 deficiency E53.8 DVT prophylaxis Z29.9
[2022-02-03] MEDS ORDERED: FAT EMUL/SOY/MCT/OLIV/FISH OIL 50 GM/250 ML BAG IV SCH
[2022-02-03] MEDS ORDERED: ACETAMINOPHEN 10MG/ML CUSTOM DOSING (PED, LOW WT) IV STA (00:14)
[2022-02-03] MEDS ORDERED: HYDROmorphone INJ 0.5 MG/0.5 ML SYR IV STA ×2 (00:14→20:40)
[2022-02-03] MEDS ORDERED: ACETAMINOPHEN 500 MG/50 ML VIAL IV ONE (00:45)
[2022-02-03] MEDS: LORazepam 0.5 MG in SYRINGE 0.25 ML IV PRN ×3 (06:12→23:36)
[2022-02-03] MEDS: SIMETHICONE 80 MG CHEW PO SCH ×2 (06:14→12:45)
[2022-02-03 07:29] LABS: BUN Creatinine Ratio 29.7 (10-20); Calcium 8.7 mg/dl (8.5-10.1); Creatinine Clr Calc Pharmacy 86.3 ml/min; Est GFR (Non-African American) 108.7 ml/min; Magnesium 2.2 mg/dl (1.7-2.4); Potassium 4.1 mmol/L (3.5-5.1)
[2022-02-03] MEDS: HYDROmorphone PCA 30 MG/30 ML IV PRN ×2 (07:29→13:52)
[2022-02-03] MEDS: [UNRECOGNIZED DRUG - REMARK] SCH (08:03)
[2022-02-03] MEDS: ONDANSETRON INJ 2 MG/ML 2 ML VIAL IV PRN ×2 (08:23→14:23)
[2022-02-03] MEDS: FAMOTIDINE 20 MG TAB PO SCH ×2 (08:32→21:14)
[2022-02-03] MEDS: PANTOprazole 40 MG TAB PO SCH (08:33)
[2022-02-03] MEDS: FOLIC ACID 1 MG in SYRINGE 9.8 ML IV SCH (08:33)
[2022-02-03] MEDS: methylPREDNISolone 20 MG in SYRINGE 0 ML IV SCH ×2 (08:33→21:15)
[2022-02-03] MEDS: CYANOCOBALAMIN 1000 MCG/ML VIAL IM SCH (08:34)
[2022-02-03] MEDS: ENOXAPARIN INJ 30 MG/0.3 ML SYR SQ SCH (08:34)
[2022-02-03] MEDS: FLUDROCORTISONE ACETATE 0.1 MG TAB PO SCH ×2 (09:36→21:15)
[2022-02-03] MEDS: GABAPENTIN 250 MG/5 ML 470 ML BTL PO SCH ×3 (09:36→21:08)
[2022-02-03] MEDS: THIAMINE HCL 200 MG in SODIUM CHLORIDE 0.9% 50 ML IV SCH (09:36)
[2022-02-03] MEDS: [UNRECOGNIZED DRUG - OTHER] PR SCH ×2 (09:43→21:16)
[2022-02-03 13:32] LABS: Appearance Urine Turbid (Clear); Bacteria Urine Automated Negative (Negative); Bilirubin Urine Negative (Negative); Blood Urine Negative (Negative); Color Urine Orange; Glucose Urine UA Negative (Negative); Ketones Urine Negative (Negative); Leukocyte Esterase Urine Negative (Negative); Nitrite Urine Negative (Negative); Protein Urine Negative (Negative); Specific Gravity Urine 1.015 (1.000-1.030); Urobilinogen Urine Negative (Negative); pH Urine 8.5 (4.5-7.5)
[2022-02-03] MEDS: HEPARIN 100 UNIT/ML 5ML FLUSH FLUSH PRN (15:02)
[2022-02-03] MEDS: STOP ORDER: TPN SCH (15:04)
[2022-02-03] MEDS: D5W AND 1/2NSS + 20MEQ KCL 20 MEQ/1,000 ML BAG IV SCH (17:19)
--- NOTE | 2022-02-03 19:13 | Hospitalist Progress Note ---
Date of Service February 03, 2022 Assessment & Plan (1) Transaminitis: Plan: new today on screening TPN labs. has had elevated LFTs in the past - presumed due to TPN. had normal MRCP this past summer. safest thing is to place TPN on hold. while TPN is on hold start IVF - D5 1/2NS with KCL at 80cc/hr. repeat full set of LFTs in am. stop any tylenol use. is not on any other med that would cause the ast/alt to rise. viral infections can cause transaminitis thus low threshold for COVID testing, etc if any fever occurs. (2) Abdominal pain, chronic, generalized: Plan: ACUTE ON CHRONIC. Known history of gastroparesis, SMA syndrome, adrenal insufficiency, severe GI tract motility disorder, and multiple abdominal surgeries (bowel resection, ileostomy creation, hysterectomy due to severe endometriosis). Recent colonoscopy of her disconnected colon at the [facility] showed biopsy- confirmed "diversion colitis." SCFA enemas BID - initiated 01/24/22. may take weeks to see improvement with the enemas. Next Rx beyond the enemas is topical mesalamine (per UpToDate). At this point I am uncertain if the acute pain is from diversion COLITIS or some other process. Abdominal Ultrasound without evidence of intussusception. Multiple CT abd/pelvis without acute pathology. Remains on HOUSE CARPENTER Dilaudid with demand dose 0.35 mg, Lock Out 20 minutes, Continuous Dose 0.2mg/hr. On average has needed a demand dose about 1-2x/hour. Again no changes to settings today. Dr Means examined her ileostomy stoma recently and by report was healthy- appearing. He also spoke with [facility] about 10 days ago - Dr Hill - Gastroenterology & motility clinic. Decision made to try relistor but this made her pain worse. Will not reattempt. I spoke with her primary GI provider locally - Ashely DUENAS at [facility] - a few days ago. Ms Foster suggested we try solumedrol in raquel of her hydrocortisone - thus, started 20mg BID IV of solumedrol. Started PM of 01/29/22. Since starting such her overall appearance/wellbeing looks better. She seems better overall with the solumedrol. Cont enemas for diversion colitis. CRP/sed rate normal on 01/30/22. Unfortunately pain management at [facility] did not feel they could offer her anything to help with her pain. Called [facility] 01/30/22 - she is accepted in transfer to their hospital for ongoing care; likely to take several days for bed. Did call their transfer center again today - bed is not anticipated until later this week at earliest. (3) Adrenal insufficiency: Plan: placed hydrocortisone on hold while using solumedrol for #1 above cont solumedrol + florinef (4) Gastroparesis: Plan: g-tube is connected to decompression/intermittent low-wall suction to help with nausea draining bile I/O balance remains acceptable at this time (5) Gastrostomy tube in place: Plan: no issues no signs of abd wall cellulitis or g-tube infection (6) Intestinal motility disorder: Plan: as above (7) Nausea: Plan: ongoing cont g-tube hooked to intermittent low-wall suction for decompression of stomach zofran prn; ativan prn; etc (8) On total parenteral nutrition (TPN): Plan: TPN placed on hold due to #1 above of note - current PICC was placed 10/2021 repeat full set of LFTs in am (9) SMAS (superior mesenteric artery syndrome): Plan: h/o (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 at [facility] this summer see #1 above cont short-chain fatty acid enemas BID (11) Ileostomy status: Plan: no issues at this time stoma has been stable & healthy appearing (12) Severe protein-calorie malnutrition: Plan: TPN dependent since earlier this summer last albumin 3.8 several days ago also on clear liquids - trying full liquids b12/folate def - see below (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 - but none seen on multiple CTs and u/s this admission (14) Folate deficiency: Plan: started folate 1mg IV daily level <2 (15) B12 deficiency: Plan: B12 level 225 B12 injections - 1000mcg IM daily x 5 days, then once weekly x 4 weeks, then mon thly thereafter day #2 of 5 I would presume she is probably also B1 deficient - added additional thiamine 200mg IV daily (16) DVT prophylaxis: Plan: lovenox 30mg once daily high risk of DVT - prolonged immobility, recurrent hospitalizations, travel, etc Plan called [facility] transfer center 01/[address] Sukhjinder Doty, [facility] medicine Pilar was accepted in transfer to [facility] given ongoing abd pain, etc available bed not anticipated for several days bed update line --- [phone] her mother contacted the campus coordinator at [facility] on 01/31/22 - transplant team aware of pending transfer fatigue - watch for signs or additional symptoms of infection checked u/a and urine cx - u/a rather unremarkable; await culture while TPN is on hold start D5 1/2 NS with KCL at 80cc/hr Admission and Anticipated Discharge Date Admission Date: January 15, 2022 Subjective yesterday she had reported she was feeling more tired & run down than usual this was in the absence of any fever or infectious symptoms today she reports energy is about the same no new symptoms no fevers or chills no cough, congestion no runny nose or sore throat abdominal pain - about the same as previous - same location (adjacent to ileostomy), but also with mild upper abd pain today continues with enemas UT for diversion colitis - denies bloody discharge or diarrhea from rectum mother at bedside during visit Review of Systems Review of Systems: gen - no fevers, minimal PO intake cv - no cp pulm - no cough GI - g-tube to intermittent low-wall suction draining bile; ileostomy output unchanged Physical Exam Physical Exam: gen - thin, NAD, looks same as previous; did smile a few times today mouth - MMM, no obvious thrush heart - RRR, s1 s2, no murmur lungs - CTA b/l chest - a-port R chest clean abd - g-tube in place, insertion site clean - no drainage; ileostomy right side of abdomen with liquid stool in bag; nontender to palpation; ND; midline scar ext - no edema, pulses 2+ b/l skin - no rash psych - a/o x 3 Results & Data Results & Data ([facility]) Vital Signs (Past 12 Hours) Vital Signs Temp Pulse Resp BP Pulse Ox O2 Del Method 02/03/22 15:33 36.7 C 66 16 107/71 97 Room Air 02/03/22 11:20 36.3 C L 68 16 108/72 97 Room Air 02/03/22 08:30 36.7 C 62 16 107/72 96 Room Air Laboratory Results Laboratory Results - last 24 hr 02/03/22 02/03/22 06:55 Unknown Sodium 141 Potassium 4.1 Chloride 104 Carbon Dioxide 32 Anion Gap 5 BUN 22 Creatinine 0.74 Est Cr Clr Drug Dosing 86.3 Est GFR ( Amer) 126.0 Est GFR (Non-Af Amer) 108.7 BUN/Creatinine Ratio 29.7 H Glucose 170 H Calcium 8.7 Phosphorus 4.0 Magnesium 2.2 AST 43 H ALT 125 H Triglycerides 142 Urine Color [place] Urine Appearance Turbid A Urine pH 8.5 H Ur Specific [place] 1.015 Urine Protein Negative Urine Glucose (UA) Negative Urine Ketones Negative Urine Blood Negative Urine Nitrite Negative Urine Bilirubin Negative Urine Urobilinogen Negative Ur Leukocyte Esterase Negative Urine WBC (Auto) 1-5 Urine RBC (Auto) 5-10 H U Hyaline Cast (Auto) 1-5 U Epithel Cells (Auto) 5-10 H Urine Bacteria (Auto) Negative PG Care Time/CCT Total # of Minutes Spent Total Time Spent with Patient: Total time spent is greater than 50% in coordination of care (as documented) at patient's floor/unit and/or counseling patient: Coding Level of Care Code 22121 Subseq Hosp Care Lvl 2 Diagnoses Transaminitis R74.01 Abdominal pain, chronic, generalized R10.84; G89.29 Adrenal insufficiency E27.40 Gastroparesis K31.[address] Z93.1 Intestinal motility disorder K59.9 Nausea R11.0 On total parenteral nutrition (TPN) Z78.9 SMAS (superior mesenteric artery syndrome) K55.1 Diversion colitis K52.89 Ileostomy status Z93.2 Severe protein-calorie malnutrition E43 Jejunal intussusception K56.1 Folate deficiency E53.8 B12 deficiency E53.8 DVT prophylaxis Z29.9
[2022-02-03] MEDS: ACETAMINOPHEN 10MG/ML CUSTOM DOSING (PED, LOW WT) IV STA ×2 (21:07→22:06)
[2022-02-03] MEDS: FEXOFENADINE HCL 180 MG TAB PO SCH (21:14)
[2022-02-03] MEDS: DICYCLOMINE HCL 10 MG CAP PO PRN (23:41)
[2022-02-04] MEDS ORDERED: HYDROmorphone INJ 0.5 MG/0.5 ML SYR IV STA (00:16)
[2022-02-04] MEDS: D5W AND 1/2NSS + 20MEQ KCL 20 MEQ/1,000 ML BAG IV SCH ×2 (05:34→18:12)
[2022-02-04] MEDS: ONDANSETRON INJ 2 MG/ML 2 ML VIAL IV PRN ×2 (05:34→20:14)
[2022-02-04] MEDS: CYANOCOBALAMIN 1000 MCG/ML VIAL IM SCH (08:20)
[2022-02-04] MEDS: ENOXAPARIN INJ 30 MG/0.3 ML SYR SQ SCH (08:21)
[2022-02-04] MEDS: methylPREDNISolone 20 MG in SYRINGE 0 ML IV SCH ×2 (08:21→20:56)
[2022-02-04] MEDS: FOLIC ACID 1 MG in SYRINGE 9.8 ML IV SCH (08:21)
[2022-02-04] MEDS: FAMOTIDINE 20 MG TAB PO SCH ×2 (08:22→21:11)
[2022-02-04 08:36] LABS: Basophils # (auto) 0.01 K/uL (0-0.2); Basophils % (auto) 0.1 %; Hematocrit (blood only) 34.6 % (34.1-44.9); Hemoglobin 11.4 g/dl (12.0-16.0); Immature Granulocytes # (auto) 0.05 K/uL (0.00-0.02); Immature Granulocytes % (auto) 0.6 %; Lymphocytes # (auto) 0.87 K/uL (1.2-3.4); Lymphocytes % (auto) 9.9 %; Mean Corpuscular Hemoglobin 31.3 pg (25.0-34.0); Mean Corpuscular Hgb Conc 32.9 g/dL (32.0-36.0); Mean Corpuscular Volume 95.1 fL (80.0-100.0); Mean Platelet Volume 11.8 fL (9.4-12.3); Monocytes # (auto) 0.75 K/uL (0.24-0.82); Monocytes % (auto) 8.5 %; Neutrophils # (auto) 7.11 K/uL (1.4-6.5); Neutrophils % (auto) 80.9 %; Platelet Count 214 K/uL (130-400); RDW Coefficient of Variation 11.5 % (11.5-14.5); Red Blood Count 3.64 M/uL (3.93-5.22); White Blood Count 8.79 K/ul (4.8-10.8)
[2022-02-04] MEDS: PANTOprazole 40 MG TAB PO SCH (08:37)
[2022-02-04] MEDS: FLUDROCORTISONE ACETATE 0.1 MG TAB PO SCH ×2 (08:37→20:59)
[2022-02-04] MEDS: THIAMINE HCL 200 MG in SODIUM CHLORIDE 0.9% 50 ML IV SCH (08:39)
[2022-02-04] MEDS: GABAPENTIN 250 MG/5 ML 470 ML BTL PO SCH ×3 (08:39→20:54)
[2022-02-04] MEDS: [UNRECOGNIZED DRUG - OTHER] PR SCH ×2 (08:40→21:00)
[2022-02-04] MEDS: LORazepam 0.5 MG in SYRINGE 0.25 ML IV PRN ×2 (09:01→17:08)
--- NOTE | 2022-02-04 09:10 | Hospitalist Progress Note ---
Date of Service February 04, 2022 Assessment & Plan (1) Transaminitis: Plan: minor elevation TPN on hold for 2 days and will follow, quality assurance intern is aware had normal MRCP this past summer. resolving will restart TPN 02/05/22 (2) Abdominal pain, chronic, generalized: Plan: ACUTE ON CHRONIC. Known history of gastroparesis, SMA syndrome, adrenal insufficiency, severe GI tract motility disorder, and multiple abdominal surgeries (bowel resection, ileostomy creation, hysterectomy due to severe endometriosis). Recent colonoscopy of her disconnected colon at the [facility] showed biopsy- confirmed "diversion colitis." SCFA enemas BID - initiated 01/24/22. may take weeks to see improvement with the enemas. Next Rx beyond the enemas is topical mesalamine (per UpToDate). At this point I am uncertain if the acute pain is from diversion COLITIS or some other process. Abdominal Ultrasound without evidence of intussusception. Multiple CT abd/pelvis without acute pathology. Remains on CLOTH BURLER Dilaudid with demand dose 0.35 mg, Lock Out 20 minutes, pt requests we start transitioning to try to go home did stop the continuous dose. On average has needed a demand dose about 1-2x/hour. Dr Means examined her ileostomy stoma recently and by report was healthy- appearing. He also spoke with [facility] about 10 [address] - [address] Hill - Gastroenterology & motility clinic. Decision made to try relistor but this made her pain worse. Will not reattempt. Dr Liu spoke with her primary GI provider locally - Ashely DUENAS at [facility] - a few days ago. Ms Foster suggested we try solumedrol in raquel of her hydrocortisone - thus, started 20mg BID IV of solumedrol. Started PM of 01/29/22. overall with the solumedrol. Cont enemas for diversion colitis. CRP/sed rate normal on 01/30/22. Unfortunately pain management at [facility] did not feel they could offer her anything to help with her pain. Called [facility] 01/30/22 - she is accepted in transfer to their hospital for ongoing care; likely to take several days for bed. Did call their transfer center again today - bed is not anticipated until later this week at earliest. (3) Adrenal insufficiency: Plan: placed hydrocortisone on hold while using solumedrol for #1 above cont solumedrol + florinef (4) Gastroparesis: Plan: g-tube is connected to decompression/intermittent low-wall suction to help with nausea draining bile I/O balance remains acceptable at this time (5) Gastrostomy tube in place: Plan: no issues no signs of abd wall cellulitis or g-tube infection (6) Intestinal motility disorder: Plan: as above (7) Nausea: Plan: ongoing cont g-tube hooked to intermittent low-wall suction for decompression of stomach zofran prn; ativan prn; etc (8) On total parenteral nutrition (TPN): Plan: TPN placed on hold due to #1 above of note - current PICC was placed 10/2021 repeat full set of LFTs in am (9) SMAS (superior mesenteric artery syndrome): Plan: h/o (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 at [facility] this summer see #1 above cont short-chain fatty acid enemas BID (11) Ileostomy status: Plan: no issues at this time stoma has been stable & healthy appearing (12) Severe protein-calorie malnutrition: Plan: TPN dependent since earlier this summer last albumin 3.8 several days ago also on clear liquids - trying full liquids b12/folate def - see below (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 - but none seen on multiple CTs and u/s this admission (14) Folate deficiency: Plan: started folate 1mg IV daily level <2 (15) B12 deficiency: Plan: B12 level 225 B12 injections - 1000mcg IM daily x 5 days, then once weekly x 4 weeks, then monthly thereafter day #2 of 5 I would presume she is probably also B1 deficient - added additional thiamine 200mg IV daily (16) DVT prophylaxis: Plan: lovenox 30mg once daily high risk of DVT - prolonged immobility, recurrent hospitalizations, travel, etc Plan called [facility] transfer center 01/[address] Sukhjinder Doty, [facility] medicine Pilar was accepted in transfer to [facility] given ongoing abd pain, etc available bed not anticipated for several days bed update line --- [phone] her mother contacted the demo coordinator at [facility] on 01/31/22 - transplant team aware of pending transfer Admission and Anticipated Discharge Date Admission Date: January 15, 2022 Subjective Patient states her pain is no better or worse than previous. She however wants to try to begin weaning her CLOTH BURLER to get out of the hospital. [facility] transfer center remains on the pending list or transfer queue. Patient has had no further dysuria or hematuria she still has a little bit of rectal discharge especially after her short chain fatty acid enemas. Last night she stated that she was having sphincter of Oddi spasm in her upper abdomen and cannot elicit this was postprandial or not. Review of Systems Review of Systems: moderate to severe distress and fatigue no headache, no visual changes no speech or swallowing issues no chest pain, pressure or palpitations no shortness of breath, cough or wheezes significant abdominal pain, with nausea but no vomiting does have venting gastrostomy tube no dysuria, hematuria or frequency no focal joint pain or swelling no back pain, CVA tenderness or radicular pain no bruising, bleeding or rashes no focal signs of weakness or numbness or altered sensation no complaints of anxiety or depression.. Physical Exam Physical Exam: The patient appeared thin and underweight, she is in mild distress but appears run down Vital signs as documented. Head exam is normocephalic atraumatic Stoma and ostomy with small amount of liquid, venting gastrostomy tube draining to canister Extremities are nonedematous and both pedal pulses are present Neurologic exam is alert and oriented, no focal loss of strength or sensation Skin is without bruises or rashes Psychologically is tearful, says she is coping ok, offered psychological intervention but does not wish to speak to a mental health provider Results & Data Results & Data ([facility]) Vital Signs (Past 12 Hours) Vital Signs Temp Pulse Pulse Resp BP Pulse Ox O2 Del Method 02/04/22 07:59 97.9 F 61 16 105/67 96 Room Air 02/04/22 03:17 98.1 F 73 12 97/57 L 96 Room Air 02/03/22 23:10 97.9 F 66 14 112/74 97 Room Air PG Care Time/CCT Total # of Minutes Spent Total Time Spent with Patient: Total time spent is greater than 50% in coordination of care (as documented) at patient's floor/unit and/or counseling patient: Coding Level of Care Code 76892 Subseq Hosp Care Lvl 2 Diagnoses Transaminitis R74.01 Abdominal pain, chronic, generalized R10.84; G89.29 Adrenal insufficiency E27.40 Gastroparesis K31.[address] Z93.1 Intestinal motility disorder K59.9 Nausea R11.0 On total parenteral nutrition (TPN) Z78.9 SMAS (superior mesenteric artery syndrome) K55.1 Diversion colitis K52.89 Ileostomy status Z93.2 Severe protein-calorie malnutrition E43 Jejunal intussusception K56.1 Folate deficiency E53.8 B12 deficiency E53.8 DVT prophylaxis Z29.9
[2022-02-04 09:21] LABS: Albumin Level 3.4 gm/dl (3.4-5.0); Bilirubin,Total 0.4 mg/dl (0.2-1.0); Calcium 8.3 mg/dl (8.5-10.1); Creatinine Clr Calc Pharmacy 92.4 ml/min; Est GFR (Non-African American) 117.4 ml/min; Potassium 3.8 mmol/L (3.5-5.1); Total Protein 5.5 gm/dl (6.0-8.3)
[2022-02-04] MEDS: HYDROmorphone PCA 30 MG/30 ML IV PRN (20:02)
[2022-02-04] MEDS: HYOSCYAMINE SULFATE 0.125 MG TAB SL PRN (20:38)
[2022-02-04] MEDS: FEXOFENADINE HCL 180 MG TAB PO SCH (20:52)
[2022-02-05] MEDS: DICYCLOMINE HCL 10 MG CAP PO PRN ×2 (00:09→23:48)
[2022-02-05] MEDS: LORazepam 0.5 MG in SYRINGE 0.25 ML IV PRN ×3 (00:21→23:48)
[2022-02-05] MEDS ORDERED: HYDROmorphone INJ 0.5 MG/0.5 ML SYR IV STA (03:22)
[2022-02-05] MEDS: D5W AND 1/2NSS + 20MEQ KCL 20 MEQ/1,000 ML BAG IV SCH ×2 (06:10→18:16)
[2022-02-05] MEDS: ONDANSETRON INJ 2 MG/ML 2 ML VIAL IV PRN ×2 (06:11→21:36)
[2022-02-05 07:46] LABS: BUN Creatinine Ratio 18.6 (10-20); Calcium 8.2 mg/dl (8.5-10.1); Creatinine Clr Calc Pharmacy 106.5 ml/min; Est GFR (African American) 142.5 ml/min; Magnesium 1.8 mg/dl (1.7-2.4); Phosphorus 4.2 mg/dl (2.5-4.9); Potassium 3.5 mmol/L (3.5-5.1)
[2022-02-05] MEDS: GABAPENTIN 250 MG/5 ML 470 ML BTL PO SCH ×3 (11:00→21:36)
[2022-02-05] MEDS: CYANOCOBALAMIN 1000 MCG/ML VIAL IM SCH (11:07)
[2022-02-05] MEDS: FLUDROCORTISONE ACETATE 0.1 MG TAB PO SCH ×2 (11:10→21:37)
[2022-02-05] MEDS: [UNRECOGNIZED DRUG - OTHER] PR SCH ×2 (11:24→21:38)
[2022-02-05] MEDS: THIAMINE HCL 200 MG in SODIUM CHLORIDE 0.9% 50 ML IV SCH (11:44)
[2022-02-05] MEDS: ENOXAPARIN INJ 30 MG/0.3 ML SYR SQ SCH (11:48)
[2022-02-05] MEDS: FOLIC ACID 1 MG in SYRINGE 9.8 ML IV SCH (11:49)
[2022-02-05] MEDS: methylPREDNISolone 20 MG in SYRINGE 0 ML IV SCH ×2 (11:49→21:37)
[2022-02-05] MEDS: HYOSCYAMINE SULFATE 0.125 MG TAB SL PRN (11:51)
[2022-02-05] MEDS: PANTOprazole 40 MG TAB PO SCH (11:59)
[2022-02-05] MEDS: SODIUM CHLORIDE 0.9% 1000ML 1,000 ML IV SCH ×2 (12:44→17:08)
[2022-02-05] MEDS: FAMOTIDINE 20 MG TAB PO SCH ×2 (14:35→21:37)
[2022-02-05] MEDS ORDERED: CENTRAL TPN IV SCH (21:00)
[2022-02-05] MEDS ORDERED: AMINO ACID 8% IV SCH (21:00)
[2022-02-05] MEDS ORDERED: [UNRECOGNIZED DRUG - OTHER] IV SCH (21:00)
[2022-02-05] MEDS ORDERED: [UNRECOGNIZED DRUG - REMARK] ONE (21:00)
[2022-02-05] MEDS: FEXOFENADINE HCL 180 MG TAB PO SCH (21:42)
[2022-02-06] MEDS ORDERED: FAT EMUL/SOY/MCT/OLIV/FISH OIL 50 GM/250 ML BAG IV SCH
[2022-02-06] MEDS: ONDANSETRON INJ 2 MG/ML 2 ML VIAL IV PRN ×3 (03:47→21:51)
[2022-02-06] MEDS: DICYCLOMINE HCL 10 MG CAP PO PRN ×2 (06:07→12:49)
[2022-02-06] MEDS: LORazepam 0.5 MG in SYRINGE 0.25 ML IV PRN ×3 (06:09→18:42)
[2022-02-06 07:23] LABS: BUN Creatinine Ratio 24.2 (10-20); Calcium 8.1 mg/dl (8.5-10.1); Creatinine Clr Calc Pharmacy 101.4 ml/min; Est GFR (African American) 140.2 ml/min; Phosphorus 2.9 mg/dl (2.5-4.9); Potassium 3.5 mmol/L (3.5-5.1)
[2022-02-06] MEDS: [UNRECOGNIZED DRUG - REMARK] SCH (08:15)
[2022-02-06] MEDS: CYANOCOBALAMIN 1000 MCG/ML VIAL IM SCH (09:55)
[2022-02-06] MEDS: ENOXAPARIN INJ 30 MG/0.3 ML SYR SQ SCH (09:56)
[2022-02-06] MEDS: GABAPENTIN 250 MG/5 ML 470 ML BTL PO SCH ×3 (10:00→21:52)
[2022-02-06] MEDS: PANTOprazole 40 MG TAB PO SCH (10:01)
[2022-02-06] MEDS: methylPREDNISolone 20 MG in SYRINGE 0 ML IV SCH ×2 (10:02→21:51)
[2022-02-06] MEDS: FAMOTIDINE 20 MG TAB PO SCH ×2 (10:03→21:54)
[2022-02-06] MEDS: FLUDROCORTISONE ACETATE 0.1 MG TAB PO SCH ×2 (10:03→21:54)
[2022-02-06] MEDS: [UNRECOGNIZED DRUG - OTHER] PR SCH ×2 (10:09→21:58)
--- NOTE | 2022-02-06 14:38 | Hospitalist Progress Note ---
Date of Service February 05, 2022 Assessment & Plan (1) Transaminitis: Plan: minor elevation TPN on hold for 2 days and will follow, bill cutter is aware had normal MRCP this past summer. resolving will restart TPN 02/05/22 (2) Abdominal pain, chronic, generalized: Plan: ACUTE ON CHRONIC. Known history of gastroparesis, SMA syndrome, adrenal insufficiency, severe GI tract motility disorder, and multiple abdominal surgeries (bowel resection, ileostomy creation, hysterectomy due to severe endometriosis). Recent colonoscopy of her disconnected colon at the [facility] showed biopsy- confirmed "diversion colitis." SCFA enemas BID - initiated 01/24/22. may take weeks to see improvement with the enemas. Next Rx beyond the enemas is topical mesalamine (per UpToDate). At this point I am uncertain if the acute pain is from diversion COLITIS or some other process. Abdominal Ultrasound without evidence of intussusception. Multiple CT abd/pelvis without acute pathology. Remains on RETAIL DEPARTMENT SUPERVISOR Dilaudid with demand dose 0.35 mg, Lock Out 20 minutes, pt requests we start transitioning to try to go home did stop the continuous dose. On average has needed a demand dose about 1-2x/hour. Dr Means examined her ileostomy stoma recently and by report was healthy- appearing. He also spoke with [facility] about 10 days ago - Dr Hill - Gastroenterology & motility clinic. Decision made to try relistor but this made her pain worse. Will not reattempt. Dr Liu spoke with her primary GI provider locally - Ashely DUENAS at [facility] - a few days ago. Ms Foster suggested we try solumedrol in raquel of her hydrocortisone - thus, started 20mg BID IV of solumedrol. Started PM of 01/29/22. overall with the solumedrol. Cont enemas for diversion colitis. CRP/sed rate normal on 01/30/22. Unfortunately pain management at [facility] did not feel they could offer her anything to help with her pain. Called [facility] 01/30/22 - she is accepted in transfer to their hospital for ongoing care; likely to take several days for bed. Did call their transfer center again today - bed is not anticipated until later this week at earliest. (3) Adrenal insufficiency: Plan: placed hydrocortisone on hold while using solumedrol for #1 above cont solumedrol + florinef (4) Gastroparesis: Plan: g-tube is connected to decompression/intermittent low-wall suction to help with nausea draining bile I/O balance remains acceptable at this time (5) Gastrostomy tube in place: Plan: no issues no signs of abd wall cellulitis or g-tube infection (6) Intestinal motility disorder: Plan: as above (7) Nausea: Plan: ongoing cont g-tube hooked to intermittent low-wall suction for decompression of stomach zofran prn; ativan prn; etc (8) On total parenteral nutrition (TPN): Plan: TPN placed on hold due to #1 above of note - current PICC was placed 10/2021 repeat full set of LFTs in am (9) SMAS (superior mesenteric artery syndrome): Plan: h/o (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 at [facility] this summer see #1 above cont short-chain fatty acid enemas BID (11) Ileostomy status: Plan: no issues at this time stoma has been stable & healthy appearing (12) Severe protein-calorie malnutrition: Plan: TPN dependent since earlier this summer last albumin 3.8 several days ago also on clear liquids - trying full liquids b12/folate def - see below (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 - but none seen on multiple CTs and u/s this admission (14) Folate deficiency: Plan: started folate 1mg IV daily level <2 (15) B12 deficiency: Plan: B12 level 225 B12 injections - 1000mcg IM daily x 5 days, then once weekly x 4 weeks, then monthly thereafter day #2 of 5 I would presume she is probably also B1 deficient - added additional thiamine 200mg IV daily (16) DVT prophylaxis: Plan: lovenox 30mg once daily high risk of DVT - prolonged immobility, recurrent hospitalizations, travel, etc Plan called [facility] transfer center 01/[address] Sukhjinder Doty, [facility] medicine Pilar was accepted in transfer to [facility] given ongoing abd pain, etc available bed not anticipated for several days bed update line --- [phone] her mother contacted the wound care coordinator at [facility] on 01/31/22 - transplant team aware of pending transfer Admission and Anticipated Discharge Date Admission Date: January 15, 2022 Subjective Patient states her pain is no better or worse than previous. She however wants to try to begin weaning her RETAIL DEPARTMENT SUPERVISOR to get out of the hospital. [facility] transfer center remains on the pending list or transfer queue. Patient has had no further dysuria or hematuria she still has a little bit of rectal discharge especially after her short chain fatty acid enemas. Last night she stated that she was having sphincter of Oddi spasm in her upper abdomen and cannot elicit this was postprandial or not. Review of Systems Review of Systems: moderate to severe distress and fatigue no headache, no visual changes no speech or swallowing issues no chest pain, pressure or palpitations no shortness of breath, cough or wheezes significant abdominal pain, with nausea but no vomiting does have venting gastrostomy tube no dysuria, hematuria or frequency no focal joint pain or swelling no back pain, CVA tenderness or radicular pain no bruising, bleeding or rashes no focal signs of weakness or numbness or altered sensation no complaints of anxiety or depression.. Physical Exam Physical Exam: The patient appeared thin and underweight, she is in mild distress but appears run down Vital signs as documented. Head exam is normocephalic atraumatic Stoma and ostomy with small amount of liquid, venting gastrostomy tube draining to canister Extremities are nonedematous and both pedal pulses are present Neurologic exam is alert and oriented, no focal loss of strength or sensation Skin is without bruises or rashes Psychologically is tearful, says she is coping ok, offered psychological intervention but does not wish to speak to a mental health provider Results & Data Results & Data ([facility]) Vital Signs (Past 12 Hours) Vital Signs Temp Pulse Resp BP Pulse Ox O2 Del Method 02/06/22 11:58 98.1 F 67 16 119/73 96 Room Air 02/06/22 08:17 98.1 F 63 16 118/77 96 Room Air PG Care Time/CCT Total # of Minutes Spent Total Time Spent with Patient: Total time spent is greater than 50% in coordination of care (as documented) at patient's floor/unit and/or counseling patient: Coding Level of Care Code 09316 Subseq Hosp Care Lvl 1 Diagnoses Transaminitis R74.01 Abdominal pain, chronic, generalized R10.84; G89.29 Adrenal insufficiency E27.40 Gastroparesis K31.[address] Z93.1 Intestinal motility disorder K59.9 Nausea R11.0 On total parenteral nutrition (TPN) Z78.9 SMAS (superior mesenteric artery syndrome) K55.1 Diversion colitis K52.89 Ileostomy status Z93.2 Severe protein-calorie malnutrition E43 Jejunal intussusception K56.1 Folate deficiency E53.8 B12 deficiency E53.8 DVT prophylaxis Z29.9
--- NOTE | 2022-02-06 14:40 | Hospitalist Progress Note ---
Date of Service February 06, 2022 Assessment & Plan (1) Transaminitis: Plan: minor elevation TPN on hold for 2 days and will follow, frame assembler is aware had normal MRCP this past summer. resolving will restart TPN 02/05/22 (2) Abdominal pain, chronic, generalized: Plan: ACUTE ON CHRONIC. Known history of gastroparesis, SMA syndrome, adrenal insufficiency, severe GI tract motility disorder, and multiple abdominal surgeries (bowel resection, ileostomy creation, hysterectomy due to severe endometriosis). Recent colonoscopy of her disconnected colon at the [facility] showed biopsy- confirmed "diversion colitis." SCFA enemas BID - initiated 01/24/22. may take weeks to see improvement with the enemas. Next Rx beyond the enemas is topical mesalamine (per UpToDate). At this point I am uncertain if the acute pain is from diversion COLITIS or some other process. Abdominal Ultrasound without evidence of intussusception. Multiple CT abd/pelvis without acute pathology. Remains on INSTITUTIONAL RESEARCH DIRECTOR Dilaudid with demand dose 0.35 mg, Lock Out 20 minutes, pt requests we start transitioning to try to go home did stop the continuous dose02/05, spaced out On average has needed a demand dose about 1-2x/hour. Dr Means examined her ileostomy stoma recently and by report was healthy- appearing. He also spoke with [facility] about 10 days ago - Dr Hill - Gastroenterology & motility clinic. Decision made to try relistor but this made her pain worse. Will not reattempt. Dr Liu spoke with her primary GI provider locally - Ashely DUENAS at [facility] - a few days ago. Ms Foster suggested we try solumedrol in raquel of her hydrocortisone - thus, started 20mg BID IV of solumedrol. Started PM of 01/29/22. overall with the solumedrol. Cont enemas for diversion colitis. CRP/sed rate normal on 01/30/22. Unfortunately pain management at [facility] did not feel they could offer her anything to help with her pain. Called [facility] 01/30/22 - she is accepted in transfer to their hospital for ongoing care; likely to take several days for bed. Did call their transfer center again today - bed is not anticipated until later this week at earliest. (3) Adrenal insufficiency: Plan: placed hydrocortisone on hold while using solumedrol for #1 above cont solumedrol + florinef (4) Gastroparesis: Plan: g-tube is connected to decompression/intermittent low-wall suction to help with nausea draining bile I/O balance remains acceptable at this time (5) Gastrostomy tube in place: Plan: no issues no signs of abd wall cellulitis or g-tube infection (6) Intestinal motility disorder: Plan: as above (7) Nausea: Plan: ongoing cont g-tube hooked to intermittent low-wall suction for decompression of stomach zofran prn; ativan prn; etc (8) On total parenteral nutrition (TPN): Plan: TPN placed on hold due to #1 above of note - current PICC was placed 10/2021 repeat full set of LFTs in am (9) SMAS (superior mesenteric artery syndrome): Plan: h/o (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 at [facility] this summer see #1 above cont short-chain fatty acid enemas BID (11) Ileostomy status: Plan: no issues at this time stoma has been stable & healthy appearing (12) Severe protein-calorie malnutrition: Plan: TPN dependent since earlier this summer last albumin 3.8 several days ago also on clear liquids - trying full liquids b12/folate def - see below (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 transfer center 01/[address] Sukhjinder Doty, [facility] medicine Pilar was accepted in transfer to [facility] given ongoing abd pain, etc available bed not anticipated for several days bed update line --- [phone] her mother contacted the communication center coordinator at [facility] on 01/31/22 - transplant team aware of pending transfer Admission and Anticipated Discharge Date Admission Date: January 15, 2022 Subjective pt requests nystatin for odynophagia, otherwise tolerating some small sips of po. pt continues to be interested in having her switch engineer tapered for eventual move to home Review of Systems Review of Systems: moderate to severe distress and fatigue no headache, no visual changes no speech some swallowing issues/pain no chest pain, pressure or palpitations no shortness of breath, cough or wheezes significant abdominal pain, with nausea but no vomiting does have venting gastrostomy tube no dysuria, hematuria or frequency no focal joint pain or swelling no back pain, CVA tenderness or radicular pain no bruising, bleeding or rashes no focal signs of weakness or numbness or altered sensation no complaints of anxiety or depression.. Physical Exam Physical Exam: The patient appeared thin and underweight, she is in mild distress but appears run down Vital signs as documented. Head exam is normocephalic atraumatic Stoma and ostomy with small amount of liquid, venting gastrostomy tube draining to canister Extremities are nonedematous and both pedal pulses are present Neurologic exam is alert and oriented, no focal loss of strength or sensation Skin is without bruises or rashes Psychologically is tearful, says she is coping ok, offered psychological intervention but does not wish to speak to a mental health provider Results & Data Results & Data ([facility]) Vital Signs (Past 12 Hours) Vital Signs Temp Pulse Resp BP Pulse Ox O2 Del Method 02/06/22 11:58 98.1 F 67 16 119/73 96 Room Air 02/06/22 08:17 98.1 F 63 16 118/77 96 Room Air PG Care Time/CCT Total # of Minutes Spent Total Time Spent with Patient: Total time spent is greater than 50% in coordination of care (as documented) at patient's floor/unit and/or counseling patient: Coding Level of Care Code 09575 Subseq Hosp Care Lvl 2 Diagnoses Transaminitis R74.01 Abdominal pain, chronic, generalized R10.84; G89.29 Adrenal insufficiency E27.40 Gastroparesis K31.[address] Z93.1 Intestinal motility disorder K59.9 Nausea R11.0 On total parenteral nutrition (TPN) Z78.9 SMAS (superior mesenteric artery syndrome) K55.1 Diversion colitis K52.89 Ileostomy status Z93.2 Severe protein-calorie malnutrition E43 Jejunal intussusception K56.1 Folate deficiency E53.8 B12 deficiency E53.8 DVT prophylaxis Z29.9
[2022-02-06] MEDS: STOP ORDER: TPN SCH (16:00)
[2022-02-06] MEDS: HEPARIN 100 UNIT/ML 5ML FLUSH FLUSH PRN (16:09)
[2022-02-06] MEDS: NYSTATIN SUSP 500,000 U/5 ML UDC PO SCH ×2 (18:02→21:51)
[2022-02-06] MEDS ORDERED: AMINO ACID 8% IV SCH (21:00)
[2022-02-06] MEDS ORDERED: CENTRAL TPN IV SCH (21:00)
[2022-02-06] MEDS ORDERED: [UNRECOGNIZED DRUG - OTHER] IV SCH (21:00)
[2022-02-06] MEDS: SODIUM CHLORIDE 0.9% 1000ML 1,000 ML IV SCH (21:11)
[2022-02-06] MEDS: FEXOFENADINE HCL 180 MG TAB PO SCH (21:53)
[2022-02-07] MEDS ORDERED: FAT EMUL/SOY/MCT/OLIV/FISH OIL 50 GM/250 ML BAG IV SCH
[2022-02-07] MEDS: LORazepam 0.5 MG in SYRINGE 0.25 ML IV PRN ×3 (01:11→17:21)
[2022-02-07] MEDS: ACETAMINOPHEN/HYDROcodone ELIX 15 ML/CUP PO PRN ×4 (01:13→18:22)
[2022-02-07] MEDS: DICYCLOMINE HCL 10 MG CAP PO PRN ×2 (01:15→12:37)
[2022-02-07] MEDS: HYDROmorphone PCA 30 MG/30 ML IV PRN ×2 (01:33→09:54)
[2022-02-07] MEDS: HYOSCYAMINE SULFATE 0.125 MG TAB SL PRN (01:55)
[2022-02-07] MEDS ORDERED: MELATONIN 3 MG TAB PO PRN (02:10)
[2022-02-07] MEDS ORDERED: HYDROmorphone INJ 0.5 MG/0.5 ML SYR IV STA ×2 (02:10→12:45)
[2022-02-07] MEDS ORDERED: HYDROmorphone INJ 0.5 MG/0.5 ML SYR ONE (02:14)
[2022-02-07] MEDS ORDERED: MELATONIN 3 MG TAB PO ONE (02:20)
[2022-02-07] MEDS: ONDANSETRON INJ 2 MG/ML 2 ML VIAL IV PRN ×3 (06:52→21:25)
[2022-02-07] MEDS: [UNRECOGNIZED DRUG - REMARK] SCH (08:51)
[2022-02-07 09:21] LABS: BUN Creatinine Ratio 28.8 (10-20); Calcium 8.1 mg/dl (8.5-10.1); Creatinine Clr Calc Pharmacy 95.2 ml/min; Est GFR (African American) 137.4 ml/min; Est GFR (Non-African American) 118.5 ml/min; Magnesium 2.3 mg/dl (1.7-2.4); Phosphorus 2.9 mg/dl (2.5-4.9)
[2022-02-07] MEDS: FAMOTIDINE 20 MG TAB PO SCH ×2 (09:27→21:26)
[2022-02-07] MEDS: ENOXAPARIN INJ 30 MG/0.3 ML SYR SQ SCH (09:27)
[2022-02-07] MEDS: GABAPENTIN 250 MG/5 ML 470 ML BTL PO SCH ×2 (09:28→21:25)
[2022-02-07] MEDS: FLUDROCORTISONE ACETATE 0.1 MG TAB PO SCH ×2 (09:28→21:26)
[2022-02-07] MEDS: [UNRECOGNIZED DRUG - OTHER] PR SCH ×2 (09:29→21:26)
[2022-02-07] MEDS: NYSTATIN SUSP 500,000 U/5 ML UDC PO SCH ×4 (09:29→21:25)
[2022-02-07] MEDS: methylPREDNISolone 20 MG in SYRINGE 0 ML IV SCH ×2 (09:29→21:25)
[2022-02-07] MEDS: PANTOprazole 40 MG TAB PO SCH (09:30)
[2022-02-07] MEDS: HEPARIN 100 UNIT/ML 5ML FLUSH FLUSH PRN (15:10)
[2022-02-07] MEDS: STOP ORDER: TPN SCH (15:13)
--- NOTE | 2022-02-07 18:12 | Hospitalist Progress Note ---
Date of Service February 07, 2022 Assessment & Plan (1) Abdominal pain, chronic, generalized: Plan: ACUTE ON CHRONIC. Known history of gastroparesis, SMA syndrome, adrenal insufficiency, severe GI tract motility disorder, and multiple abdominal surgeries (bowel resection, ileostomy creation, hysterectomy due to severe endometriosis). Recent colonoscopy of her disconnected colon at the [facility] showed biopsy- confirmed "diversion colitis." SCFA enemas BID - initiated 01/24/22. may take weeks to see improvement with the enemas. Next Rx beyond the enemas is topical mesalamine (per UpToDate). Abdominal Ultrasound without evidence of intussusception. Multiple CT abd/pelvis without acute pathology. does have retained debris in cecum and ascending colon Remains on SALES AND MARKETING DIRECTOR Dilaudid with demand dose 0.25 mg, Lock Out 30 minutes, pt requests we start transitioning to try to go home did stop the continuous dose02/05, Pt with increased flare of pain change steroid replacement back to hydrocortisone Cont enemas for diversion colitis. Unfortunately pain management at [facility] did not feel they could offer her anything to help with her pain. Called [facility] 01/30/22 - she is accepted in transfer to their hospital for ongoing care; likely to take several days for bed. Did call their transfer center again today - bed is not anticipated until later this week at earliest. extended visit 02/07 attempting to coordinate care for transfer as the patient is not improving to move toward discharge here, she is agreeable to start cymbalta as adjuvant pain medicine adn may have some assistance with her coping with chronic disease (2) Adrenal insufficiency: Plan: resume hydrocortisone + florinef (3) Gastroparesis: Plan: g-tube is connected to decompression/intermittent low-wall suction to help with nausea draining bile I/O balance remains acceptable at this time (4) Gastrostomy tube in place: Plan: no issues no signs of abd wall cellulitis or g-tube infection (5) Intestinal motility disorder: Plan: as above (6) Nausea: Plan: ongoing cont g-tube hooked to intermittent low-wall suction for decompression of stomach zofran prn; ativan prn; etc (7) Transaminitis: Plan: minor elevation TPN on hold for 2 days and will follow, blanking machine operator is aware had normal MRCP this past summer. 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 at [facility] this summer see #1 above cont short-chain fatty acid enemas BID (11) Ileostomy status: Plan: no issues at this time stoma has been stable & healthy appearing (12) Severe protein-calorie malnutrition: Plan: TPN dependent since earlier this summer last albumin 3.8 several days ago also on clear liquids - trying full liquids b12/folate def - see below (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 - but none seen on multiple CTs and u/s this admission (14) Folate deficiency: Plan: started folate 1mg IV daily level <2 (15) B12 deficiency: Plan: B12 level 225 B12 injections - 1000mcg IM daily x 5 days, then once weekly x 4 weeks, then monthly thereafter day #2 of 5 I would presume she is probably also B1 deficient - added additional thiamine 200mg IV daily (16) DVT prophylaxis: Plan: lovenox 30mg once daily high risk of DVT - prolonged immobility, recurrent hospitalizations, travel, etc Plan called [facility] transfer center 02/05 02/07 no bed available accepted by Dr Sukhjinder Doty, [facility] medicine bed update line --- [phone] her mother contacted the corporate wellness coordinator at [facility] on 02/07/22 - transplant team aware of pending transfer, agrees to [facility] starting Admission and Anticipated Discharge Date Admission Date: January 15, 2022 Subjective Minimal tapering of her SALES AND MARKETING DIRECTOR the patient is a significant flareup of her pain. The pain is a twisting pain near her ostomy I spent 25 minutes at the bedside 50 minutes reviewing charts and 45 minutes on the phone with [facility] today trying to get to some resolution of her eventual disposition. Her physician in [place], Dr. Sexton, is out of the country. Her transplant physician Dr. Mata Gonzalez could not be reached but I was given a number for a nurse navigator Gale Alfred at [phone] or [phone] I called both of those numbers and left a message with my personal cell for for her to return my call. Patient's mother states she did contact the transplant nurse coordinator and gave us permission to try Cymbalta as adjunctive or additive pain control for this patient Review of Systems Review of Systems: moderate to severe distress and fatigue no headache, no visual changes no speech some swallowing issues/pain no chest pain, pressure or palpitations no shortness of breath, cough or wheezes significant abdominal pain, near her ostomy twisting in nature with nausea but no vomiting does have venting gastrostomy tube no dysuria, hematuria or frequency no focal joint pain or swelling no back pain, CVA tenderness or radicular pain no bruising, bleeding or rashes no focal signs of weakness or numbness or altered sensation no complaints of anxiety or depression.. Physical Exam Physical Exam: The patient appeared thin and underweight, she is in mild distress but appears run down Vital signs as documented. Head exam is normocephalic atraumatic Neurologic exam is alert and oriented, no focal loss of strength or sensation Skin is without bruises or rashes Psychologically is tearful, says she is coping ok, offered psychological intervention but does not wish to speak to a mental health provider Results & Data Results & Data ([facility]) Vital Signs (Past 12 Hours) Vital Signs Temp Pulse Pulse Resp BP Pulse Ox O2 Del Method 02/07/22 14:44 97.5 F L 110 H 16 117/79 99 Room Air 02/07/22 11:16 98.2 F 73 14 105/70 97 Room Air 02/07/22 06:44 97.9 F 60 16 102/66 96 Room Air PG Care Time/CCT Total # of Minutes Spent Total Time Spent with Patient: Total time spent is greater than 50% in coordination of care (as documented) at patient's floor/unit and/or counseling patient: Coding Level of Care Code 11947 Subseq Hosp Care Lvl 2 Diagnoses Abdominal pain, chronic, generalized R10.84; G89.29 Adrenal insufficiency E27.40 Gastroparesis K31.[address] Z93.1 Intestinal motility disorder K59.9 Nausea R11.0 Transaminitis R74.01 On total parenteral nutrition (TPN) Z78.9 SMAS (superior mesenteric artery syndrome) K55.1 Diversion colitis K52.89 Ileostomy status Z93.2 Severe protein-calorie malnutrition E43 Jejunal intussusception K56.1 Folate deficiency E53.8 B12 deficiency E53.8 DVT prophylaxis Z29.9 Time Spent (min) 45
[2022-02-07] MEDS ORDERED: AMINO ACID 8% IV SCH (21:00)
[2022-02-07] MEDS ORDERED: [UNRECOGNIZED DRUG - OTHER] IV SCH (21:00)
[2022-02-07] MEDS ORDERED: CENTRAL TPN IV SCH (21:00)
[2022-02-07] MEDS ORDERED: GABAPENTIN 250 MG/5 ML 470 ML BTL PO SCH ×2 (21:00)
[2022-02-07] MEDS: SODIUM CHLORIDE 0.9% 1000ML 1,000 ML IV SCH (21:24)
[2022-02-07] MEDS: FEXOFENADINE HCL 180 MG TAB PO SCH (21:26)
[2022-02-07] MEDS: MELATONIN 3 MG TAB PO SCH (21:26)
[2022-02-07] MEDS: HYDROmorphone INJ 0.5 MG/0.5 ML SYR IV PRN (23:28)
[2022-02-08] MEDS ORDERED: FAT EMUL/SOY/MCT/OLIV/FISH OIL 50 GM/250 ML BAG IV SCH
[2022-02-08] MEDS: ACETAMINOPHEN/HYDROcodone ELIX 15 ML/CUP PO PRN ×3 (00:29→16:45)
[2022-02-08] MEDS: DICYCLOMINE HCL 10 MG CAP PO PRN (00:30)
[2022-02-08] MEDS: LORazepam 0.5 MG in SYRINGE 0.25 ML IV PRN ×3 (00:30→16:46)
[2022-02-08] MEDS: ONDANSETRON INJ 2 MG/ML 2 ML VIAL IV PRN ×3 (06:12→19:34)
[2022-02-08] MEDS: HYDROmorphone INJ 0.5 MG/0.5 ML SYR IV PRN ×3 (06:13→19:34)
[2022-02-08] MEDS: [UNRECOGNIZED DRUG - REMARK] SCH (08:33)
[2022-02-08] MEDS: methylPREDNISolone 20 MG in SYRINGE 0 ML IV SCH ×2 (10:01→19:38)
[2022-02-08] MEDS: FLUDROCORTISONE ACETATE 0.1 MG TAB PO SCH ×2 (10:02→19:39)
[2022-02-08] MEDS: FAMOTIDINE 20 MG TAB PO SCH ×2 (10:03→19:39)
[2022-02-08] MEDS: PANTOprazole 40 MG TAB PO SCH (10:04)
[2022-02-08] MEDS: NYSTATIN SUSP 500,000 U/5 ML UDC PO SCH ×4 (10:04→19:38)
[2022-02-08] MEDS: GABAPENTIN 250 MG/5 ML 470 ML BTL PO SCH ×3 (10:05→21:16)
[2022-02-08] MEDS: [UNRECOGNIZED DRUG - OTHER] PR SCH ×2 (10:07→19:40)
[2022-02-08] MEDS: DULoxetine HCL 20 MG CAP PO SCH (10:17)
[2022-02-08] MEDS: SODIUM CHLORIDE 0.9% 1000ML 1,000 ML IV SCH (11:32)
[2022-02-08] MEDS: ENOXAPARIN INJ 30 MG/0.3 ML SYR SQ SCH (14:54)
[2022-02-08] MEDS: HEPARIN 100 UNIT/ML 5ML FLUSH FLUSH PRN (15:04)
[2022-02-08] MEDS: STOP ORDER: TPN SCH (15:11)
--- NOTE | 2022-02-08 17:06 | Hospitalist Progress Note ---
Date of Service February 08, 2022 Assessment & Plan (1) Abdominal pain, chronic, generalized: Plan: ACUTE ON CHRONIC. Known history of gastroparesis, SMA syndrome, adrenal insufficiency, severe GI tract motility disorder, and multiple abdominal surgeries (bowel resection, ileostomy creation, hysterectomy due to severe endometriosis). Recent colonoscopy of her disconnected colon at the [facility] showed biopsy- confirmed "diversion colitis." Patient is received the primary mount of care from [facility]. I did call them this morning and patient has been moved up on the priority list for transfer. They anticipate bed availability today or tomorrow SCFA enemas BID - initiated 01/24/22. may take weeks to see improvement with the enemas. Next Rx beyond the enemas is topical mesalamine (per UpToDate). Abdominal Ultrasound without evidence of intussusception. Multiple CT abd/pelvis without acute pathology. does have retained debris in cecum and ascending colon Remains on FRINGE WEAVER Dilaudid with demand dose 0.25 mg, Lock Out 30 minutes, pt requests we start transitioning to try to go home did stop the continuous dose02/05, When this was attempted, pt with increased flare of pain Continue with hydrocortisone Cont enemas for diversion colitis. Unfortunately pain management at [facility] did not feel they could offer her anything to help with her pain. [facility] called on 01/30/22 - she is accepted in transfer to their hospital for ongoing care; likely to take several days for bed. Did call their transfer center again today - bed is anticipated today or tomorrow . (2) Adrenal insufficiency: Plan: Continue hydrocortisone + florinef (3) Gastroparesis: Plan: g-tube is connected to decompression/intermittent low-wall suction to help with nausea. Clamp when patient is taking meds per protocol Continues to drain mucus and bile I/O balance -16.6 L (4) Gastrostomy tube in place: Plan: no issues no signs of abd wall cellulitis or g-tube infection No tenderness (5) Intestinal motility disorder: Plan: as above (6) Nausea: Plan: ongoing cont g-tube hooked to intermittent low-wall suction for decompression of stomach zofran prn; ativan prn; etc (7) Transaminitis: Plan: minor elevation of ALT TPN on hold for 2 days and now restarted Check repeat labs tomorrow had normal MRCP this past summer. 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 [facility] this summer see #1 above cont short-chain fatty acid enemas BID Anticipate transfer to [facility] in the next day or so (11) Ileostomy status: Plan: no issues at this time stoma has been stable & healthy appearing (12) Severe protein-calorie malnutrition: Plan: TPN dependent since earlier this summer last albumin 3.8 several days ago also on clear liquids - trying full liquids b12/folate def - see below (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 - but none seen on multiple CTs and u/s this admission (14) Folate deficiency: Plan: started folate 1mg IV daily level <2 (15) B12 deficiency: Plan: B12 level 225 B12 injections - 1000mcg IM daily x 5 days, then once weekly x 4 weeks, then monthly thereafter day #2 of 5 I would presume she is probably also B1 deficient - added additional thiamine 200mg IV daily (16) DVT prophylaxis: Plan: lovenox 30mg once daily high risk of DVT - prolonged immobility, recurrent hospitalizations, travel, etc Plan called [facility] transfer center 02/05 02/07 no bed available accepted by Dr Sukhjinder Doty, [facility] medicine bed update line --- [phone] her mother contacted the international guest coordinator at [facility] on 02/07/22 - transplant team aware of pending transfer, [facility] Contacted bed update line today (02/08/2022) at approximately 10:50 AM. They are anticipating multiple discharges today and tomorrow. Patient moved up on priority list and anticipate transfer Admission and Anticipated Discharge Date Admission Date: January 15, 2022 Supervising Physician Co-Signing Physician Notes The patient was seen by me and discussed with Kirk Velazquez. Agree with assessment and plan. Transfer to [facility] when bed available Subjective Attending: Dr. Burgos Patient seen and examined in room 307. She is of good spirits. She states that she continues to have abdominal pain and is requiring FRINGE WEAVER. She did attempt to wean off of the FRINGE WEAVER but had flareups of pain. She admits to being quite frustrated and states that if she cannot be transferred to [facility] that she prefers to go home. I did call [facility] this morning and anticipate having beds today or tomorrow as they are anticipating discharges. Patient continues with nausea but no significant vomiting. She is having adequate output through her colostomy bag. PEG tube is in place with no irritation to light tugging and no erythema or irritation around the os. Patient denies any fever, chills, sweats, rigors. She continues with TPN through her [employer] access. She did attempt to take some orals but these caused nausea. Patient has no new complaints. Review of Systems Review of Systems: A total of 10 systems was reviewed and is negative other than as listed in the HPI Physical Exam Physical Exam: GENERAL : No acute distress. Patient pleasant and talkative. EYES: No icterus, gaze conjugate NOSE: No evidence of epistaxis MOUTH: No lesions or candidiasis. Mucosa moist NECK: Supple. No carotid bruits LUNGS: CTA B/L, no wheezes, rales or rhonchi. Good inspirational effort with no induced cough HEART: Regular, rate controlled ABDOMEN: Soft, NT, ND, BS Present. There is a small amount of stool in the patient's ostomy bag. PEG tube is secure. No erythema around os. No irritation with light tugging on the tube. Cuff in place. EXTREMITIES: No LE edema, pedal pulses intact NEURO: A&OX3 Results & Data Results & Data ([facility]) Vital Signs (Past 12 Hours) Vital Signs Temp Pulse Resp BP Pulse Ox O2 Del Method 02/08/22 16:25 36.8 C 74 16 103/67 97 Room Air 02/08/22 07:36 36.7 C 54 L 16 109/68 96 Room Air Critical Care Results & Data Vital Signs (Past 12 Hours) Vital Signs Temp Pulse Resp BP Pulse Ox O2 Del Method 02/08/22 16:25 36.8 C 74 16 103/67 97 Room Air 02/08/22 07:36 36.7 C 54 L 16 109/68 96 Room Air Lab & Micro Results (Past 24 Hours) No Data to Display Na 137 mmol/L (136-145) 02/09/22 K 4.1 mmol/L (3.5-5.1) 02/09/22 Cl 104 mmol/L (98-107) 02/09/22 CO2 30 mmol/L (21-32) 02/09/22 Anion Gap 3 (3-11) 02/09/22 BUN 22 mg/dl (6-23) 02/09/22 Creatinine 0.62 mg/dl (0.6-1.2) 02/09/22 Estimated GFR ( Amer) 140.2 ml/min 02/09/22 Estimated GFR (Non-Af Amer) 121.0 ml/min 02/09/22 BUN/Creatinine Ratio 35.5 (10-20) H 02/09/22 Glu 169 mg/dl (70-99(Fasting)) H 02/09/22 Ca 8.1 mg/dl (8.5-10.1) L 02/09/22 Phosphorus Level 3.7 mg/dl (2.5-4.9) 02/09/22 Total Bilirubin 0.3 mg/dl (0.2-1.0) 02/09/22 Direct Bilirubin 0.1 mg/dl (0-0.2) 02/09/22 AST 11 U/L (13-39) L 02/09/22 ALT 49 U/L (7-52) 02/09/22 Alkaline Phosphatase 39 U/L (34-104) 02/09/22 TP 5.2 gm/dl (6.0-8.3) L 02/09/22 Albumin 3.3 gm/dl (3.4-5.0) L 02/09/22 Mg 2.1 mg/dl (1.7-2.4) 02/09/22 05:38 Calcium Level 8.1 mg/dl (8.5-10.1) L 02/09/22 05:38 I & O Totals 24 Hours 02/07/22 02/08/22 02/09/22 06:59 06:59 06:59 Intake Total 2289.25 / 2289.25 1526.75 / 1526.75 462 / 462 Output Total 3400 / 3400 2600 / 2600 Balance -1110.75 / -1110.75 -1073.25 / -1073.25 462 / 462 Cumulative 01/14/22 01:26 thru 02/08/22 15:12 Intake Total 61038.191 Output Total 06748 Balance -43051.809 RT Ventilator Mngmt (Last Documented) Ventilator Ordered Settings Respiratory Rate 16 02/08/22 16:25 Ventilator - PT Measurements Respiratory Rate 16 PG Care Time/CCT Total # of Minutes Spent Total Time Spent with Patient: Total time spent is greater than 50% in coordination of care (as documented) at patient's floor/unit and/or counseling patient: Coding Level of Care Code 37454 Subseq Hosp Care Lvl 3 Diagnoses Abdominal pain, chronic, generalized R10.84; G89.29 Adrenal insufficiency E27.40 Gastroparesis K31.[address] Z93.1 Intestinal motility disorder K59.9 Nausea R11.0 Transaminitis R74.01 On total parenteral nutrition (TPN) Z78.9 SMAS (superior mesenteric artery syndrome) K55.1 Diversion colitis K52.89 Ileostomy status Z93.2 Severe protein-calorie malnutrition E43 Jejunal intussusception K56.1 Folate deficiency E53.8 B12 deficiency E53.8 DVT prophylaxis Z29.9
[2022-02-08] MEDS: FEXOFENADINE HCL 180 MG TAB PO SCH (19:39)
[2022-02-08] MEDS: MELATONIN 3 MG TAB PO SCH (19:40)
[2022-02-08] MEDS ORDERED: AMINO ACID 8% IV SCH (21:00)
[2022-02-08] MEDS ORDERED: CENTRAL TPN IV SCH (21:00)
[2022-02-08] MEDS ORDERED: [UNRECOGNIZED DRUG - OTHER] IV SCH (21:00)
[2022-02-09] MEDS ORDERED: FAT EMUL/SOY/MCT/OLIV/FISH OIL 50 GM/250 ML BAG IV SCH
[2022-02-09] MEDS: ACETAMINOPHEN/HYDROcodone ELIX 15 ML/CUP PO PRN ×2 (00:16→06:46)
[2022-02-09] MEDS: LORazepam 0.5 MG in SYRINGE 0.25 ML IV PRN ×3 (00:16→13:59)
[2022-02-09] MEDS: HYDROmorphone INJ 0.5 MG/0.5 ML SYR IV PRN ×5 (01:52→22:17)
[2022-02-09] MEDS: DICYCLOMINE HCL 10 MG CAP PO PRN (01:53)
[2022-02-09] MEDS ORDERED: DICYCLOMINE HCL 20 MG TAB PO PRN (03:11)
[2022-02-09] MEDS: ONDANSETRON INJ 2 MG/ML 2 ML VIAL IV PRN ×4 (04:49→22:16)
[2022-02-09 07:08] LABS: Albumin Level 3.3 gm/dl (3.4-5.0); BUN Creatinine Ratio 35.5 (10-20); Bilirubin Direct 0.1 mg/dl (0-0.2); Bilirubin,Total 0.3 mg/dl (0.2-1.0); Calcium 8.1 mg/dl (8.5-10.1); Est GFR (African American) 140.2 ml/min; Magnesium 2.1 mg/dl (1.7-2.4); Phosphorus 3.7 mg/dl (2.5-4.9); Potassium 4.1 mmol/L (3.5-5.1); Total Protein 5.2 gm/dl (6.0-8.3)
[2022-02-09] MEDS: [UNRECOGNIZED DRUG - REMARK] SCH (08:06)
[2022-02-09] MEDS: GABAPENTIN 250 MG/5 ML 470 ML BTL PO SCH ×3 (09:27→20:46)
[2022-02-09] MEDS: methylPREDNISolone 20 MG in SYRINGE 0 ML IV SCH ×2 (09:27→20:46)
[2022-02-09] MEDS: PANTOprazole 40 MG TAB PO SCH (09:28)
[2022-02-09] MEDS: FLUDROCORTISONE ACETATE 0.1 MG TAB PO SCH ×2 (09:28→20:47)
[2022-02-09] MEDS: FAMOTIDINE 20 MG TAB PO SCH ×2 (09:28→20:47)
[2022-02-09] MEDS: NYSTATIN SUSP 500,000 U/5 ML UDC PO SCH ×4 (09:28→20:46)
[2022-02-09] MEDS: DULoxetine HCL 20 MG CAP PO SCH (09:29)
[2022-02-09] MEDS: ENOXAPARIN INJ 30 MG/0.3 ML SYR SQ SCH (10:13)
[2022-02-09] MEDS: [UNRECOGNIZED DRUG - OTHER] PR SCH ×2 (10:13→20:46)
[2022-02-09] MEDS: HYOSCYAMINE SULFATE 0.125 MG TAB SL PRN (10:19)
[2022-02-09] MEDS ORDERED: HYDROmorphone INJ 0.5 MG/0.5 ML SYR IV STA (10:38)
--- NOTE | 2022-02-09 10:45 | Hospitalist Progress Note ---
Date of Service February 09, 2022 Assessment & Plan (1) Abdominal pain, chronic, generalized: Plan: ACUTE ON CHRONIC. Known history of gastroparesis, SMA syndrome, adrenal insufficiency, severe GI tract motility disorder, and multiple abdominal surgeries (bowel resection, ileostomy creation, hysterectomy due to severe endometriosis). Recent colonoscopy of her disconnected colon at the [facility] showed biopsy- confirmed "diversion colitis." Patient has been accepted for transfer to [facility]. I did call them this morning and patient has been moved up on the priority list for transfer. They anticipate bed availability today or tomorrow Patient with increased pain today. She did receive additional boluses of Dilaudid. She had a total of 6.75 mg of Dilaudid in the last 24 hours. Abdominal pain and nausea are her limiting factors right now. SCFA enemas BID - initiated 01/24/22. may take weeks to see improvement with the enemas. Next Rx beyond the enemas is topical mesalamine (per UpToDate). Abdominal Ultrasound without evidence of intussusception. Multiple CT abd/pelvis without acute pathology. does have retained debris in cecum and ascending colon Remains on [employer] OPERATOR Dilaudid with demand dose 0.25 mg, Lock Out 30 minutes, pt requests we start transitioning to try to go home did stop the continuous dose02/05, When this was attempted, pt with increased flare of pain Continue with hydrocortisone Cont enemas for diversion colitis. Unfortunately pain management at [facility] did not feel they could offer her anything to help with her pain. [facility] called on 01/30/22 - she is accepted in transfer to their hospital for ongoing care; likely to take several days for bed. Did call their transfer center again today -still waiting for discharges from their facility (2) Adrenal insufficiency: Plan: Continue hydrocortisone + florinef (3) Gastroparesis: Plan: g-tube is connected to decompression/intermittent low-wall suction to help with nausea. Clamp when patient is taking meds per protocol Continues to drain mucus and bile I/O balance -16.6 L (4) Gastrostomy tube in place: Plan: no issues no signs of abd wall cellulitis or g-tube infection No tenderness (5) Intestinal motility disorder: Plan: as above (6) Nausea: Plan: ongoing cont g-tube hooked to intermittent low-wall suction for decompression of stomach zofran prn; ativan prn; etc (7) Transaminitis: Plan: minor elevation of ALT TPN on hold for 2 days and now restarted Repeat labs today within normal limits had normal MRCP this past summer. 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 - but none seen on multiple CTs and u/s this admission (14) Folate deficiency: Plan: started folate 1mg IV daily level <2 (15) B12 deficiency: Plan: B12 level 225 B12 injections - 1000mcg IM daily x 5 days, then once weekly x 4 weeks, then monthly thereafter day #4 of 5 Probably also B1 deficient - added additional thiamine 200mg IV daily (16) DVT prophylaxis: Plan: lovenox 30mg once daily high risk of DVT - prolonged immobility, recurrent hospitalizations, travel, etc Increase activity as tolerated Okay to walk always and go outside as needed Plan called [facility] transfer center 02/05 02/07 no bed available accepted by Dr Sukhjinder Doty, [facility] medicine bed update line --- [phone] her mother contacted the corporate safety coordinator at [facility] on 02/07/22 - transplant team aware of pending transfer, agrees to [facility] starting Contacted bed update line today (02/09/2022) at approximately 9:30 AM. They are anticipating multiple discharges today and tomorrow. Patient moved up on priority list and anticipate transfer Admission and Anticipated Discharge Date Admission Date: January 15, 2022 Supervising Physician Co-Signing Physician Notes The patient was not seen by me. Case discussed with Kirk Awad, physicians multimedia assistant. Agree with assessment and plan Subjective Attending: Dr. Burgos Patient seen and examined in room 307. Her mother was present. Pain seems to be relatively well controlled with the current regimen. Last 24 hours patient has received 6.75 mg of hydromorphone IV by [employer]ACHINE OPERATOR. During day shift yesterday from 7 8-7 P she required 2.5 mg. From 7P to 7 a she required 4.25 mg. She had 18 attempts and 17 deliveries. She does have some nausea this morning but no vomiting. Pain seems to be focused just medial to the ileostomy. She does have output into the ileostomy bag with no evidence of bleeding. She denies any fever, chills, sweats, rigors. She has no difficulty with breathing. She has no chest pain or tightness. She was able to ambulate in the hallways last evening. She otherwise has no acute complaints. I did contact the transfer center at [facility] this morning and patient is still on bed hold waiting for discharges. Review of Systems Review of Systems: A total of 10 systems was reviewed and is negative other than as listed in the HPI Physical Exam Physical Exam: GENERAL : No acute distress EYES: No icterus, gaze conjugate NOSE: No evidence of epistaxis MOUTH: No lesions or candidiasis NECK: Supple LUNGS: CTA B/L, no wheezes, rales or rhonchi HEART: Regular, rate controlled ABDOMEN: Soft, NT, ND, BS Present. No high-pitched tinkling. Colostomy bag is in place and secure. PEG tube is in place and secure. EXTREMITIES: No LE edema, pedal pulses intact NEURO: A&OX3 Results & Data Results & Data ([facility]) Vital Signs (Past 12 Hours) Vital Signs Temp Pulse Resp BP Pulse Ox O2 Del Method 02/09/22 04:58 36.6 C 58 L 16 112/69 97 Room Air 02/08/22 23:08 36.6 C 68 16 113/71 97 Room Air Critical Care Results & Data Vital Signs (Past 12 Hours) Vital Signs Temp Pulse Resp BP Pulse Ox O2 Del Method 02/09/22 04:58 36.6 C 58 L 16 112/69 97 Room Air 02/08/22 23:08 36.6 C 68 16 113/71 97 Room Air Lab & Micro Results (Past 24 Hours) No Data to Display Na 137 mmol/L (136-145) 02/09/22 K 4.1 mmol/L (3.5-5.1) 02/09/22 Cl 104 mmol/L (98-107) 02/09/22 CO2 30 mmol/L (21-32) 02/09/22 Anion Gap 3 (3-11) 02/09/22 BUN 22 mg/dl (6-23) 02/09/22 Creatinine 0.62 mg/dl (0.6-1.2) 02/09/22 Estimated GFR ( Amer) 140.2 ml/min 02/09/22 Estimated GFR (Non-Af Amer) 121.0 ml/min 02/09/22 BUN/Creatinine Ratio 35.5 (10-20) H 02/09/22 Glu 169 mg/dl (70-99(Fasting)) H 02/09/22 Ca 8.1 mg/dl (8.5-10.1) L 02/09/22 Phosphorus Level 3.7 mg/dl (2.5-4.9) 02/09/22 Total Bilirubin 0.3 mg/dl (0.2-1.0) 02/09/22 Direct Bilirubin 0.1 mg/dl (0-0.2) 02/09/22 AST 11 U/L (13-39) L 02/09/22 ALT 49 U/L (7-52) 02/09/22 Alkaline Phosphatase 39 U/L (34-104) 02/09/22 TP 5.2 gm/dl (6.0-8.3) L 02/09/22 Albumin 3.3 gm/dl (3.4-5.0) L 02/09/22 Mg 2.1 mg/dl (1.7-2.4) 02/09/22 05:38 Calcium Level 8.1 mg/dl (8.5-10.1) L 02/09/22 05:38 I & O Totals 24 Hours 02/08/22 02/09/22 02/10/22 06:59 06:59 06:59 Intake Total 1526.75 / 1526.75 462 / 462 1228.9 / 1228.9 Output Total 2600 / 2600 1300 / 1300 600 / 600 Balance -1073.25 / -1073.25 -838 / -838 628.9 / 628.9 Cumulative 01/14/22 01:26 thru 02/09/22 09:32 Intake Total 92143.091 Output Total 66512 Balance -27430.909 RT Ventilator Mngmt (Last Documented) Ventilator Ordered Settings Respiratory Rate 16 02/09/22 04:58 Ventilator - PT Measurements Respiratory Rate 16 PG Care Time/CCT Total # of Minutes Spent Total Time Spent with Patient: Total time spent is greater than 50% in coordination of care (as documented) at patient's floor/unit and/or counseling patient: Coding Level of Care Code 72525 Subseq Hosp Care Lvl 2 Diagnoses Abdominal pain, chronic, generalized R10.84; G89.29 Adrenal insufficiency E27.40 Gastroparesis K31.[address] Z93.1 Intestinal motility disorder K59.9 Nausea R11.0 Transaminitis R74.01 On total parenteral nutrition (TPN) Z78.9 SMAS (superior mesenteric artery syndrome) K55.1 Diversion colitis K52.89 Ileostomy status Z93.2 Severe protein-calorie malnutrition E43 Jejunal intussusception K56.1 Folate deficiency E53.8 B12 deficiency E53.8 DVT prophylaxis Z29.9
[2022-02-09] MEDS: SODIUM CHLORIDE 0.9% 1000ML 1,000 ML IV SCH (11:45)
[2022-02-09] MEDS: HEPARIN 100 UNIT/ML 5ML FLUSH FLUSH PRN ×2 (15:08→18:20)
[2022-02-09] MEDS: STOP ORDER: TPN SCH (15:08)
[2022-02-09] MEDS: FEXOFENADINE HCL 180 MG TAB PO SCH (20:46)
[2022-02-09] MEDS: MELATONIN 3 MG TAB PO SCH (20:46)
[2022-02-09] MEDS ORDERED: [UNRECOGNIZED DRUG - OTHER] IV SCH (21:00)
[2022-02-09] MEDS ORDERED: AMINO ACID 8% IV SCH (21:00)
[2022-02-09] MEDS ORDERED: CENTRAL TPN IV SCH (21:00)
[2022-02-10] MEDS ORDERED: FAT EMUL/SOY/MCT/OLIV/FISH OIL 50 GM/250 ML BAG IV SCH
[2022-02-10] MEDS: ACETAMINOPHEN/HYDROcodone ELIX 15 ML/CUP PO PRN (00:15)
[2022-02-10] MEDS: LORazepam 0.5 MG in SYRINGE 0.25 ML IV PRN ×3 (00:16→12:27)
[2022-02-10] MEDS: ONDANSETRON INJ 2 MG/ML 2 ML VIAL IV PRN ×2 (02:17→09:58)
[2022-02-10] MEDS: HYDROmorphone INJ 0.5 MG/0.5 ML SYR IV PRN ×3 (02:18→09:57)
[2022-02-10 07:43] LABS: BUN Creatinine Ratio 33.8 (10-20); Calcium 8.1 mg/dl (8.5-10.1); Creatinine Clr Calc Pharmacy 97.3 ml/min; Est GFR (African American) 138.1 ml/min; Est GFR (Non-African American) 119.1 ml/min; Magnesium 2.2 mg/dl (1.7-2.4); Phosphorus 4.1 mg/dl (2.5-4.9)
--- NOTE | 2022-02-10 08:33 | Hospitalist Progress Note ---
Date of Service February 10, 2022 Assessment & Plan (1) Abdominal pain, chronic, generalized: Plan: ACUTE ON CHRONIC. Known history of gastroparesis, SMA syndrome, adrenal insufficiency, severe GI tract motility disorder, and multiple abdominal surgeries (bowel resection, ileostomy creation, hysterectomy due to severe endometriosis). Recent colonoscopy of her disconnected colon at the [facility] showed biopsy- confirmed "diversion colitis." Patient has been accepted for transfer to [facility]. I did call them this morning and patient has been moved up on the priority list for transfer. They anticipate bed availability today or tomorrow Patient with increased pain today. She did receive additional boluses of Dilaudid. She had a total of 6.75 mg of Dilaudid in the last 24 hours. Abdominal pain and nausea are her limiting factors right now. SCFA enemas BID - initiated 01/24/22. may take weeks to see improvement with the enemas. Next Rx beyond the enemas is topical mesalamine (per UpToDate). Abdominal Ultrasound without evidence of intussusception. Multiple CT abd/pelvis without acute pathology. does have retained debris in cecum and ascending colon Remains on [employer] SUPERVISOR Dilaudid with demand dose 0.25 mg, Lock Out 30 minutes, pt requests we start transitioning to try to go home did stop the continuous dose02/05, When this was attempted, pt with increased flare of pain Continue with hydrocortisone Cont enemas for diversion colitis. Unfortunately pain management at [facility] did not feel they could offer her anything to help with her pain. [facility] called on 01/30/22 - she is accepted in transfer to their hospital for ongoing care; likely to take several days for bed. Did call their transfer center again today -still waiting for discharges from their facility (2) Adrenal insufficiency: Plan: Continue hydrocortisone + florinef (3) Gastroparesis: Plan: g-tube is connected to decompression/intermittent low-wall suction to help with nausea. Clamp when patient is taking meds per protocol Continues to drain mucus and bile I/O balance -16.6 L (4) Gastrostomy tube in place: Plan: no issues no signs of abd wall cellulitis or g-tube infection No tenderness (5) Intestinal motility disorder: Plan: as above (6) Nausea: Plan: ongoing cont g-tube hooked to intermittent low-wall suction for decompression of stomach zofran prn; ativan prn; etc (7) Transaminitis: Plan: minor elevation of ALT TPN on hold for 2 days and now restarted Repeat labs today within normal limits had normal MRCP this past summer. 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 - but none seen on multiple CTs and u/s this admission (14) Folate deficiency: Plan: started folate 1mg IV daily level <2 (15) B12 deficiency: Plan: B12 level 225 B12 injections - 1000mcg IM daily x 5 days, then once weekly x 4 weeks, then monthly thereafter day #4 of 5 Probably also B1 deficient - added additional thiamine 200mg IV daily (16) DVT prophylaxis: Plan: lovenox 30mg once daily high risk of DVT - prolonged immobility, recurrent hospitalizations, travel, etc Increase activity as tolerated Okay to walk always and go outside as needed Plan called [facility] transfer center 02/05 02/07 no bed available accepted by Dr Sukhjinder Doty, [facility] medicine bed update line --- [phone] her mother contacted the family resource coordinator at [facility] on 02/07/22 - transplant team aware of pending transfer, agrees to alfredoalta starting Contacted bed update line today (02/09/2022) at approximately 9:30 AM. They are anticipating multiple discharges today and tomorrow. Patient moved up on priority list and anticipate transfer Admission and Anticipated Discharge Date Admission Date: January 15, 2022 Results & Data Results & Data ([place]) Vital Signs (Past 12 Hours) Vital Signs Temp Pulse Resp BP Pulse Ox O2 Del Method 02/10/22 07:51 36.7 C 67 16 101/66 97 Room Air 02/10/22 00:55 36.6 C 75 14 106/68 97 Room Air
[2022-02-10] MEDS: [UNRECOGNIZED DRUG - REMARK] SCH (09:25)
[2022-02-10] MEDS: HEPARIN 100 UNIT/ML 5ML FLUSH FLUSH PRN (09:58)
[2022-02-10] MEDS: FAMOTIDINE 20 MG TAB PO SCH (10:04)
[2022-02-10] MEDS: PANTOprazole 40 MG TAB PO SCH (10:05)
[2022-02-10] MEDS: DULoxetine HCL 20 MG CAP PO SCH (10:05)
[2022-02-10] MEDS: NYSTATIN SUSP 500,000 U/5 ML UDC PO SCH (10:05)
[2022-02-10] MEDS: ENOXAPARIN INJ 30 MG/0.3 ML SYR SQ SCH (10:06)
[2022-02-10] MEDS: methylPREDNISolone 20 MG in SYRINGE 0 ML IV SCH (10:07)
[2022-02-10] MEDS: FLUDROCORTISONE ACETATE 0.1 MG TAB PO SCH (10:07)
[2022-02-10] MEDS: [UNRECOGNIZED DRUG - OTHER] PR SCH (10:07)
[2022-02-10] MEDS: GABAPENTIN 250 MG/5 ML 470 ML BTL PO SCH (10:13)
--- NOTE | 2022-02-10 19:06 | Discharge Summary ---
Date of Service February 10, 2022 Admission HPI Per Admitting Provider 31yo female a complex PMH including gastroparesis, SMA syndrome, ileostomy placement, G-tube placement (on TPN), and adrenal insufficiency presents with a few-day history of abdominal pain and increased bloody mucus per rectum. Patient underwent colonoscopy three days ago at [facility]; since then she has had increased abdominal pain and bloody mucus per rectum. Patient notes her abdominal pain is worst near her ileostomy site. Also endorses associated nausea without vomiting. Patient denies fever, chills, vision changes, CP, palpitations, SOB, edema, dysuria, back pain, lightheadedness, dizziness, numbness, tingling, weakness, or other symptoms. Denies recent illness and recent travel. Of note, patient is awaiting an intestinal transplant at [facility]. Upon arrival, vitals were unremarkable; BP controlled, no tachycardia or tachypnea, patient afebrile, spO2 adequate on room air. Initial labs were unremarkable; no leukocytosis, no anemia, platelets wnl, no electrolyte abnormalities, LFTs wnl, lipase not elevated, covid PCR negative. Surrogate decision-maker in case of an emergency: dominic Garcia (cell: [phone]) Admission Exam Per Admitting Provider Constitutional: tired-appearing, no acute distress HEENT: MMM CV: regular rhythm, no murmur appreciated, extremities well-perfused, no LE edema Resp: CTABL, no wheezes/rales/rhonchi appreciated, no increased work of breathi ng GI: soft, nondistended, ileostomy noted, mild RUQ and LUQ tenderness, moderate RLQ and LLQ tenderness, no guarding or rebound, BS present MSK: no gross deformities appreciated Skin: skin surrounding ileostomy site not erythematous or edematous, no exudate Neuro: alert, oriented, no focal neurologic deficit appreciated Principal Diagnosis Acute on chronic abdominal pain Discharge Exam General: Well-appearing, alert, interactive, and in no acute distress. HEENT: Normocephalic, atraumatic. EOM intact. Good conjugate gaze. Nares patent. Moist mucosal membranes. Neck: Supple. No lymphadenopathy. Normal ROM. CV: Regular rate and rhythm. Normal S1 and S2. No murmurs gallops or rubs. Respiratory: Normal respiratory effort. Lungs clear to auscultation bilaterally. No crackles, rhonchi, or wheezes. Abdomen: Soft, nondistended abdomen with visible ileostomy. No bruits heard on auscultation. Tenderness to palpation in all quadrants. Skin: Clean, dry, and intact. No rashes, bruises, or erythema. Discharge Data Allergies Allergy/AdvReac Type Severity Reaction Status Date / Time adhesive Allergy Severe Redness of Verified 01/13/22 12:59 Skin morphine Allergy Severe Severe Verified 01/13/22 12:59 abdominal Pain, sphincter of oddi spasms amoxicillin Allergy Intermediate RASH Verified 01/13/22 12:59 calcium Allergy Intermediate SEE COMMENT Verified 01/13/22 12:59 [From VIACTIV Multi-Vitamin] cefazolin Allergy Intermediate rash Verified 01/13/22 12:59 Cephalosporins Allergy Intermediate HIVES Verified 01/13/22 12:59 clavulanic acid Allergy Intermediate HIVES Verified 01/13/22 12:59 folic acid Allergy Intermediate SEE COMMENT Verified 01/13/22 12:59 [From VIACTIV Multi-Vitamin] iron [From Venofer] Allergy Intermediate Muscle Pain Verified 01/13/22 12:59 multivitamin with minerals Allergy Intermediate SEE COMMENT Verified 01/13/22 12:59 [From VIACTIV Multi-Vitamin] Penicillins Allergy Intermediate HIVES Verified 01/13/22 12:59 prochlorperazine Allergy Intermediate HIVES Verified 01/13/22 12:59 promethazine Allergy Intermediate hives, Verified 01/13/22 12:59 throat swelling sulfamethoxazole Allergy Intermediate RASH Verified 01/13/22 12:59 sumatriptan Allergy Intermediate RASH Verified 01/13/22 12:59 trimethoprim Allergy Intermediate RASH Verified 01/13/22 12:59 metoclopramide AdvReac Severe anxiety/ Verified 01/13/22 12:59 jittery diphenhydramine AdvReac Intermediate Tachycardia, Verified 01/13/22 12:59 Severe Anxiety WITH IV ONLY erythromycin base AdvReac Intermediate GI SYMPTOMS Verified 01/13/22 12:59 citalopram [From Celexa] AdvReac Unknown CAN'T Verified 01/13/22 12:59 REMEMBER Consultations 01/14/22 05:15 ED Decision to Admit Stat 01/14/22 07:10 Consult Gastroenterology Routine 01/30/22 16:59 Burn CD for patient Routine Ordered Studies 01/14/22 01:57 CT abd pelvis IV con only Urgent 01/17/22 01:51 CT abd pelvis wo con Urgent 01/18/22 14:42 US abd ltd intussusception Stat 01/21/22 23:10 CT Abd and Pelvis [CT abd pelvis IV con only] Stat 01/28/22 17:09 CT abd pelvis wo con Routine Hospital Course (1) Abdominal pain, chronic, generalized: Elio is a 32-year-old female with chronic, complex medical history of SMA syndrome, gastroparesis, adrenal insufficiency, ileostomy, G-tube placement who is here for intractable abdominal pain, bloody mucus per rectum. -Patient presented with few days history of abdominal pain, increased bloody mucus per rectum 3 days after undergoing a colonoscopy at [facility]. Vitals unremarkable on admission. Initial labs were negative for leukocytosis, anemia, thrombocytopenia, or electrolyte derangements. LFTs, lipase labs were normal, as was a COVID-19 PCR. -CT abdomen/pelvis showed no significant change. No evidence of intussusception on abdominal ultrasound. Pain control was initiated: PHOTOGRAPHIC RESTORER pump, Dilaudid as needed. -GI was consulted: Suspected possible diversion colitis, trapped air secondary to recent colonoscopy. Recommended transfer to [facility] if clinical picture worsened. She was otherwise continued on home regimen. -Over the course of her stay, hydrocortisone switched to Solu-Medrol, which brought about some symptomatic improvement in her abdominal pain. -SCFA (short-chain fatty acid) enemas twice daily initiated 01/24/2022. -[facility] contacted for transfer, which was approved pending bed placement. Bed placement, transport paperwork secured/completed 02/10/2022. 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: (14) Folate deficiency: (15) B12 deficiency: (16) DVT prophylaxis: Total Time Total Time Spent Total Time Spent (In Minutes): <30 Discharge Plan Discharge Items Patient Disposition: Transfer Acute Care Hospital Reason For Visit: ABD PAIN, RECTAL BLEED AFTER COLONOSCOPY Discharge Diagnosis: abdominal pain with rectal bleeding after colonoscopy Activity: Resume your previous activity Non-emergency contact: Primary Care Provider and Machine Molder Call non-emergency contact if: you have any medication questions, your symptoms worsen, your pain is worsening and your wound pain has increased Follow-up/Referrals: Mariah Addison DO [Primary Care Provider] - Diet: Other - See Diet Comment Diet Comment: per TPN and G tube with tolerated oral intake Addtl Attending Provider Instructions: Dear Pilar, You came to the hospital because of increased abdominal pain and nausea. You were evaluated with imaging and labs to identify the cause of your acute symptoms. It appears your symptoms are all related to your abdominal surgeries. We managed your pain and nausea during your stay. However, we feel your pain and its root causes would be better managed at a tertiary facility. As you were previously managed at the [facility], the transfer process was initiated at that location for your continued care. Now that the transfer process is complete, you will be transported there after your discharge from this hospital. We wish you the best of luck with your treatment. If you have any questions, you may reach us at [phone]. Pending Studies at Discharge: No Stand-Alone Forms: My [employer], Smoking Cessation Skilled Items Patient informed of condition?: Yes DNR: No Discharge Level of Care: Other Communicable Disease: No Discharge Prognosis: Stable Lines: None Urinary Catheter: No Medications and DC Order Prescriptions: New (DME) Enema Bottle Bottle See Rx Instructions .Route Qty: 72 0RF Rx Instructions: As directed Continued famotidine 40 mg tablet 20 mg PO BID Rx Instructions: 1/2 tablet dose ondansetron 4 mg tablet,disintegrating 4 mg translingual Q6H PRN (Reason: Nausea) Rx Instructions: can also have iv hydrocortisone 10 mg tablet 10 - 15 mg PO BID Rx Instructions: TAKE 15 MG EVERY MORNING AND 10 MG EVERY AFTERNOON trimethobenzamide 300 mg Capsule 300 mg PO Q6H PRN (Reason: Nausea And Vomiting) hyoscyamine sulfate [Levsin/SL] 0.125 mg Tablet, Sublingual 0.125 mg SUBLINGUAL Q4H PRN (Reason: Abdominal Cramping) dicyclomine 10 mg Capsule 10 - 20 mg PO Q6H PRN (Reason: Abdominal Pain) pantoprazole [Protonix] 40 mg tablet,delayed release (DR/EC) 40 mg PO QAM lorazepam [Ativan] 2 mg/mL Solution 0.5 mg buccal QID PRN (Reason: Nausea) Rx Instructions: DIRECTED 0.5 MG (0.25 ML) gabapentin 250 mg/5 mL solution 300 mg PO TID Rx Instructions: 6 ml po TID fexofenadine 180 mg Tablet 180 mg PO PM hydrocodone-acetaminophen 7.5-325 mg/15 mL solution 10 ml PO Q6H PRN (Reason: moderate-severe pain) Qty: 120 0RF fludrocortisone 0.1 mg tablet 0.1 - 0.2 mg PO UD Rx Instructions: Take 0.2mg(2 tab)in the AM Take 0.1mg(1 tab) in the PM acetaminophen [Tylenol Extra Strength] 500 mg Tablet 1,000 mg PO Q6H PRN (Reason: Pain) ascorbic acid (vitamin C) [Vitamin C] 500 mg Tablet,Chewable 0 mg PO PM Rx Instructions: Takes 1 gummy daily UNKNOWN STRENGTH vitamin B complex Tablet 1 tab PO PM coenzyme Q10 [CoQ-10] 100 mg Capsule 0 mg PO PM Rx Instructions: Takes 1 tab daily UNKNOWN STRENGTH Multivitamin Gummies 200 mcg Tablet,Chewable 2 tab PO PM turmeric 400 mg Capsule 0 mg PO PM Rx Instructions: Takces 1 cap daily Discharge Orders: Discharge Order (Routine); Ordered 02/10/22 Ordered By: Ena Mendez Admission Data Admit Date/Time: 01/15/22 13:14 Attending Provider: Ramses Layne Admit Provider: Vipul Morillo Primary Care Provider: Mariah Addison Other Providers: Dioni Kumar ; Navdeep Vo ; Sukhjinder Burgos Other Interventions: Discharge Summary Assessment (RN) Last Done: 02/10/22 11:43 Supervising Physician Co-Signing Physician Notes I personally examined the patient and verified all solorzano points of history and exam, discussed case, and agree with decision making with Dr Mendez for transfer vitals noted nad heent nc at mmm breathing unlabored no accessory muscles good effort skin no rashes no pallor or icterus abdominal pain - transfer to [facility] otherwise as above Resident Activity Tracking Resident Involvement: Resident Care Provided Care Provided: Adult Hospital Medicine
--- NOTE | 2022-02-10 20:03 | Billing Data ---
Date of Service February 10, 2022 Coding Level of Care Code D/C DAY MANAGEMENT <30 MINS
[2022-02-10] MEDS ORDERED: [UNRECOGNIZED DRUG - OTHER] IV SCH (21:00)
[2022-02-10] MEDS ORDERED: AMINO ACID 8% IV SCH (21:00)
[2022-02-10] MEDS ORDERED: CENTRAL TPN IV SCH (21:00)
[2022-02-11] MEDS ORDERED: FAT EMUL/SOY/MCT/OLIV/FISH OIL 50 GM/250 ML BAG IV SCH
--- NOTE | 2022-02-19 05:51 | Coding Query ---
CODING QUERY To promote full compliance with coding requirements relating to patient care, provider participation is requested in all cases of receivable manager uncertainty. Please assist us with the question(s) below: Coding Question(s): Pt admitted with acute/chronic abdominal pain and rectal bleeding . 3 Days prior to admission had a Colonoscopy at [facility]. Discharge Summary : GI states diversion colitis from air trappings from prior Colonoscopy. Please check below the phrase that describes the diversion colitis. Thanks for your help! LINDA Orta [place] Physician's Response(s): The Diversion Colitis is expected status post colonoscopy The Diversion Colitis is a complication of the colonoscopy Cannot clinically correlate if the Diversion Colitis is a complication of the colonoscopy. x___ Other: please document: complication of ileostomy Principal Diagnosis: "that condition established after study, to be chiefly responsible for occasioning the admission of the patient to the hospital for care." Co-Existing Principal Diagnosis: "when two or more diagnoses equally meet the criteria for principal diagnosis as determined by the circumstances of admission, diagnostic work up, and/or therapy provided, and the Alphabetic Index, Tabular List, or another coding guideline does not provide sequencing direction, any one of the diagnoses may be sequenced first." "When the physician has documented what appears to be a current diagnosis in the body of the record, but has not included the diagnosis in the final diagnostic statement, the physician should be asked whether the diagnosis should be added." (Source Coding [facility] 2 QTR90. p3-4) MALACHI
== END 2022-02-10 13:00 | disposition short-term general hospital (02) | DRG 393 ==
LOC: 3E 01:26 → ED 01:26 → SUATTDRO 05:42 → 3E 06:43 → SUATTDRO 01-15 13:14
DX: Y92.009 Unspecified place in unspecified non-institutional (private) residence as the place of occurrence of the external cause; K62.5 Hemorrhage of anus and rectum; R10.84 Generalized abdominal pain; G89.18 Other acute postprocedural pain; K30 Functional dyspepsia; Z88.5 Allergy status to narcotic agent; G89.29 Other chronic pain; E43 Unspecified severe protein-calorie malnutrition; K94.19 Other complications of enterostomy; E27.40 Unspecified adrenocortical insufficiency; Z88.1 Allergy status to other antibiotic agents; Z88.0 Allergy status to penicillin; E51.9 Thiamine deficiency, unspecified; Z68.1 Body mass index [BMI] 19.9 or less, adult; E53.8 Deficiency of other specified B group vitamins; K55.1 Chronic vascular disorders of intestine; K91.840 Postprocedural hemorrhage of a digestive system organ or structure following a digestive system procedure; K31.84 Gastroparesis; Z95.828 Presence of other vascular implants and grafts; K52.89 Other specified noninfective gastroenteritis and colitis; K59.89 Other specified functional intestinal disorders; Y83.8 Other surgical procedures as the cause of abnormal reaction of the patient, or of later complication, without mention of misadventure at the time of the procedure; K91.89 Other postprocedural complications and disorders of digestive system

== ENCOUNTER 2022-04-08 13:30 | Inpatient (IN) ==
[2022-04-08] MEDS ORDERED: HYDROmorphone INJ 1 MG/ML SYRINGE ONE (14:31)
[2022-04-08] MEDS ORDERED: HEPARIN 100 UNIT/ML 5ML FLUSH ONE (14:33)
[2022-04-08] MEDS ORDERED: SODIUM CHLORIDE 0.9% 1000ML 1,000 ML IV SCH (14:38)
[2022-04-08] MEDS ORDERED: DICYCLOMINE HCL 10 MG CAP PO PRN (14:38)
[2022-04-08] MEDS ORDERED: ACETAMINOPHEN 500 MG TAB PO PRN (14:38)
[2022-04-08] MEDS ORDERED: NALOXONE HCL 0.4 MG/1 ML VIAL/CARP IV PRN (14:38)
[2022-04-08] MEDS ORDERED: TRIMETHOBENZAMIDE 300 MG PO PRN (14:38)
[2022-04-08] MEDS ORDERED: HYOSCYAMINE SULFATE 0.125 MG TAB SL PRN (15:12)
[2022-04-08] MEDS: ONDANSETRON INJ 2 MG/ML 2 ML VIAL IV PRN ×2 (15:38→22:08)
[2022-04-08 15:39] LABS: Troponin I High Sensitivity 10.7 pg/ml (0-14)
[2022-04-08] MEDS: HYDROmorphone PCA 30 MG/30 ML IV PRN (15:39)
[2022-04-08 15:45] LABS: Magnesium 1.8 mg/dl (1.7-2.4); Phosphorus 3.9 mg/dl (2.5-4.9)
[2022-04-08] MEDS ORDERED: Patient's HEIGHT &/or WEIGHT Needed SCH (15:45)
[2022-04-08] MEDS: LACTATED RINGER'S 1,000 ML IV SCH (15:48)
[2022-04-08] MEDS: POTASSIUM CHLORIDE / WTR 10 MEQ/100 ML PLCT IV SCH ×6 (17:50→23:31)
[2022-04-08] MEDS: LORazepam 0.5 MG in SYRINGE 0 ML IV PRN (18:25)
--- NOTE | 2022-04-08 18:33 | History & Physical Report ---
Date of Service April 08, 2022 Assessment & Plan (1) Syncope: Plan: While she was found to be pulseless by nursing staff each time with her events, the fact that they self resolve and while she did not have cardiac monitoring on the first event, after the second event she was sinus, her EKG today as well as during 2 prior ER visits is sinus, and her troponin was completely normalI do not suspect an actual cardiac arrest. Rather, given that severe abdominal pain seems to be the inciting incident, I strongly suspect a vasovagal responsegiven that typically we see a vasovagal response drop to a blood pressure of about 70/40, but her hypotension would almost certainly be accentuated by dehydration and malnutrition, and given that her radial pulses usually palpable only to about a systolic of 70I suspect strongly that she essentially had hypotension from a vagal response "amplified" by her dehydration and malnutrition creating the appearance of a pulseless state. That said, being in such a depleted state that becoming, for all intents and purposes, pulseless from a vagal response is extremely concerning. Giving IV fluids, giving better pain control for now with the ADMISSION LIAISON, following closely. See below as far as abdominal pain. Given that her EKG was sinus, she has had multiple EKGs in the last week that were all sinus rhythm, given that her troponin is normal, I doubt I would get her any meaningful benefit from an echocardiogram. Continue to follow closely. (2) Abdominal pain: Plan: Concerning given that her pain is significantly worse, she gives symptoms that sound like some degree of dysfunction of her ostomy, or possibly adhesionsshe has been accepted to return to [facility] for evaluation with their surgical team, which I believe will serve her wellher abdominal situation is certainly quite complicated. Given her stability between episodes, I doubt that she has an acute/deteriorating abdominal process at playand while I strongly suspect a CT scan will be of benefit in determining the etiology of the pain, or at least in preoperative planning, given that she is excepted at [facility], and shows no deteriorating acuitydiscussed with patient and mother that I will hold off on ordering CT at this time so that it can be done at their facility allowing for easier coordination of care/continuity. Her abdominal exam is very similar to prior exams when I have seen her many times in the past. We also discussed that while chronic GI abdominal pain is not a "typical indication" for chronic pain management, and certainly motility issues can be worsened by narcoticsit is also reasonable to consider with the chronicity/severity of her pain, that we may be serving her better looking for a "minimal regimen necessary" rather than a "0 regimen"obviously this will be more for longitudinal follow-up. (3) Malnutrition: Plan: [facility]. If she is here into tomorrow, for now we will resume TPN. Otherwise defer to [facility] expertise. (4) DVT prophylaxis: Plan: Ambulation (5) Discharge planning issues: Plan: Accepted in transfer to [facility], awaiting bed and transport (6) Hypokalemia: Plan: Replete Admission and Anticipated Discharge Date Admission Date: April 08, 2022 History of Present Illness Chief Complaint: CODE BLUE Primary Care Provider: Mariah Addison DO Patient is a very pleasant 32-year-old female well-known to me from prior adm issions to presented to [facility] earlier today for IV fluidsshe routinely gets IV fluids as an outpatient given her poor ability to take enterally, and while there she had intense abdominal painwhich she notes has really been an ongoing thing for the last week and a half since discharge from [facility]. She does note while there she was having some degree of kinking or flipping of her ostomy and that would often initiate the painshe also has very severe abdominal pain at times even when she does not have the visual changes of her ostomy. The pain then become so intense that she passes outoften she notes that she does not have much of a warning. She is very pale when she passes out, her mom actually did chest compressions at home 1 time, and prior to my seeing her our visit was initiated because of the [facility] staff not being able to find a pulse and calling a CODE BLUE. By the time I arrived she was awake alert oriented talkative but in significant abdominal pain. She notes that she also has been struggling with nutritionwhile she was at [facility] they switched her from TPN as her main source of nutrition to tube feedsher goal is 95 mL an hour for (I believe 16 hours, might of been 18we will need to confirm). She notes that she is really only been able to maybe get in half of that. Has had multiple episodes of passing out at home like this, again as noted above her mom did CPR once. She had a colectomy at [facility] during her last admissionnotes there is a small stump left in her pelvis which probably explains the findings on ER x-rays from last week. Has been to the ER 3 different times in the last week, given pain medicines, appearing to not have a situation of acuity, and discharged home. She notes she is really been struggling with pain in with nutrition. Allergies Allergy/AdvReac Type Severity Reaction Status Date / Time adhesive Allergy Severe Redness of Verified 04/08/22 11:46 Skin morphine Allergy Severe Severe Verified 04/08/22 11:46 abdominal Pain, sphincter of oddi spasms amoxicillin Allergy Intermediate RASH Verified 04/08/22 11:46 calcium Allergy Intermediate SEE COMMENT Verified 04/08/22 11:46 [From VIACTIV Multi-Vitamin] cefazolin Allergy Intermediate rash Verified 04/08/22 11:46 Cephalosporins Allergy Intermediate HIVES Verified 04/08/22 11:46 clavulanic acid Allergy Intermediate HIVES Verified 04/08/22 11:46 folic acid Allergy Intermediate SEE COMMENT Verified 04/08/22 11:46 [From VIACTIV Multi-Vitamin] iron [From Venofer] Allergy Intermediate Muscle Pain Verified 04/08/22 11:46 multivitamin with minerals Allergy Intermediate SEE COMMENT Verified 04/08/22 11:46 [From VIACTIV Multi-Vitamin] Penicillins Allergy Intermediate HIVES Verified 04/08/22 11:46 prochlorperazine Allergy Intermediate HIVES Verified 04/08/22 11:46 promethazine Allergy Intermediate hives, Verified 04/08/22 11:46 throat swelling sulfamethoxazole Allergy Intermediate RASH Verified 04/08/22 11:46 sumatriptan Allergy Intermediate RASH Verified 04/08/22 11:46 trimethoprim Allergy Intermediate RASH Verified 04/08/22 11:46 metoclopramide AdvReac Severe anxiety/ Verified 04/08/22 11:46 jittery diphenhydramine AdvReac Intermediate Tachycardia, Verified 04/08/22 11:46 Severe Anxiety WITH IV ONLY erythromycin base AdvReac Intermediate GI SYMPTOMS Verified 04/08/22 11:46 citalopram [From Celexa] AdvReac Unknown CAN'T Verified 04/08/22 11:46 REMEMBER Home Medications Medication Instructions Recorded Confirmed Type dicyclomine 10 mg capsule 10 - 20 mg PO Q6H PRN Abdominal 03/07/18 04/08/22 History Pain hyoscyamine sulfate 0.125 mg 0.125 mg sublingual Q4H PRN 03/07/18 04/08/22 History sublingual tablet (Levsin/SL) Abdominal Cramping pantoprazole 40 mg tablet,delayed 40 mg PO QAM 09/08/19 04/08/22 History release (Protonix) famotidine 40 mg tablet 20 mg PO BID 11/28/19 04/08/22 History lorazepam 2 mg/mL injection 0.5 mg buccal QID PRN Nausea 12/05/19 04/08/22 History solution (Ativan) hydrocortisone 10 mg tablet 10 - 15 mg PO BID 02/07/20 04/08/22 History ondansetron 4 mg disintegrating 4 mg translingual Q6H PRN Nausea 02/07/20 04/08/22 History tablet trimethobenzamide 300 mg capsule 300 mg PO Q6H PRN Nausea And 02/07/20 04/08/22 History Vomiting fexofenadine 180 mg tablet 180 mg PO PM 10/09/20 04/08/22 History gabapentin 250 mg/5 mL oral 300 mg PO TID 10/09/20 04/08/22 History solution fludrocortisone 0.1 mg tablet See Rx Instructions .Route .COMPLEX 12/12/20 04/08/22 History acetaminophen 500 mg tablet 1,000 mg PO Q6H PRN Pain 06/13/21 04/08/22 History (Tylenol Extra Strength) coenzyme Q10 100 mg capsule 0 mg PO PM 06/13/21 04/08/22 History (CoQ-10) multivitamin with minerals-folic 2 tab PO PM 06/13/21 04/08/22 History acid 200 mcg chewable tablet (Multivitamin Gummies) turmeric 400 mg capsule 400 mg PO PM 06/13/21 04/08/22 History empty container (Enema Misc Bottle) #72 ea 01/16/22 04/02/22 Rx hydromorphone 1 mg/mL oral liquid 2 mg PO Q4H PRN Pain 04/01/22 04/08/22 History cholecalciferol (vitamin D3) 25 50 mcg PO DAILY 04/07/22 04/08/22 History mcg (1,000 unit) capsule (Vitamin D3) duloxetine 60 mg capsule,delayed 60 mg PO DAILY 04/07/22 04/08/22 History release methocarbamol 750 mg tablet 750 mg PO Q8H PRN MUSCLE SPASMS 04/07/22 04/08/22 History Past Med/Surg History Medical History Asthma Chronic migraine Colitis Diversion colitis Elevated lipase Endometriosis has had 3 surgeries for this. Last surgery [address] Hemorrhagic cystitis Hypotension Intussusception Pancreatitis PICC (peripherally inserted central catheter) in place TPN SMAS (superior mesenteric artery syndrome) History of SMAS Sphincter of Oddi dysfunction DECREASED GI MOTILITY Transaminitis Uses feeding tube gastroparesis and decreased GI motility can not tolerate feeding and uses TPN UTI (urinary tract infection) Surgical History H/O adenoidectomy H/O laparoscopy H/O lumpectomy right breast 2011 History of appendectomy History of bowel resection Part of duodenum removed due to necrosis; done at [facility] 2019 History of hysterectomy 09/27/19 History of removal of Port-a-Cath 10/13/[address] Geiger, [facility], due to bacteremia/sepsis. History of vascular access device 2017 Hx of colonoscopy during procedure perforated small bowel 10/27/2019 at [facility], subsequent repair of duodenal area. Hx of ileostomy Hx of tonsillectomy S/P cholecystectomy 2015 S/P wrist surgery right Family History Father Hyperlipidemia Other No significant family history Social History Smoking Status: Never smoker Second Hand Exposure: No; Hx Alcohol Use: No Hx Substance Use: No Preferred Language: Stateless Communication Ability: Effective Visual Impairment: No Limitations Hearing Ability: Normal Keyliner Required: No Beliefs That Will Affect Care: None marital status: Single Current Living Situation: Parent Current Living Situation Comment: Lives with family. current occupational status: unemployed current occupation: completed 4-year degree at [employer] How many Children do You have: 0 Feels Safe at Home: Yes Sexual Activity Comment: not sexually active Assistive Devices: Wheelchair Review of Systems Review of Systems: All systems reviewed & are unremarkable except as noted in HPI & below Physical Exam Physical Exam: In general she is awake alert oriented appears to be in significant pain distress. HEENT normocephalic atraumatic mucous membranes moist. Cardio is tachycardic no rubs murmurs or gallops. Lungs are clear to auscultation bilaterally no rales rhonchi or wheezes good effort. Abdomen is somewhat firm diffusely tender worse around her ostomythe firmness being much more of a chronic finding with her exam, it is hard to gauge rebound or rigidity. Extremities show no cyanosis clubbing or edema no calf tenderness. Skin shows no rashes, no pallor or icterusshe does have a bit of a blotchy discoloration around her neck and upper shoulders however. Neuro shows cranial nerves II through XII be grossly intact gross motor and sensory intact. Musculoskeletal shows no gross lesions/deformities. Mental status shows good recent and remote recall normal mood and affect fitting with the situation, good judgment and insight. Results & Data Results & Data ([facility]) Vital Signs (Past 12 Hours) Vital Signs Temp Pulse Resp BP BP Pulse Ox O2 Del Method 04/08/22 14:57 98.6 F 83 18 110/70 98 Room Air 04/08/22 13:45 98.2 F 78 14 112/78 98 Room Air Code Status & VTE Plan VTE Prophylaxis Plan VTE Prophylaxis will be ordered: No Reason for no VTE drug order: Treatment not indicated PG Care Time/CCT Total # of Minutes Spent Total Time Spent with Patient: Total time spent is greater than 50% in coordination of care (as documented) at patient's floor/unit and/or counseling patient: Coding Level of Care Code 94226 Initial Inpt Care Lvl 3 Diagnoses Syncope R55 Abdominal pain R10.9 Malnutrition E46 DVT prophylaxis Z29.9 Discharge planning issues Z02.9 Hypokalemia E87.6
[2022-04-08] MEDS ORDERED: LACTATED RINGER'S 1,000 ML IV ONE (18:59)
[2022-04-08] MEDS ORDERED: HYDROCORTISONE 10 MG TAB PO SCH (21:00)
[2022-04-08] MEDS ORDERED: FLUDROCORTISONE ACETATE 0.1 MG TAB PO SCH (21:00)
[2022-04-08] MEDS ORDERED: NON-FORMULARY MEDICATION (Turmeric 400 mg Capsule) PO SCH (21:00)
[2022-04-08] MEDS ORDERED: NON-FORMULARY MEDICATION (Coenzyme Q10 [Coq-10] 100 mg Capsule) PO SCH (21:00)
[2022-04-08] MEDS ORDERED: NON-FORMULARY MEDICATION (Multivit With Min-Folic Acid [Multivitamin Gummies] 200 mcg Tabl PO SCH (21:00)
[2022-04-08] MEDS: FEXOFENADINE HCL 180 MG TAB PO SCH (21:13)
[2022-04-08] MEDS: FAMOTIDINE 20 MG TAB PO SCH (21:13)
[2022-04-08] MEDS: GABAPENTIN 250 MG/5 ML 470 ML BTL PO SCH ×2 (21:15→21:16)
[2022-04-08] MEDS: GABAPENTIN 150 MG/3 ML UDP PO SCH (21:27)
[2022-04-08] MEDS: METHOCARBAMOL 750 MG TABLET PO PRN (22:11)
[2022-04-08] MEDS: FLUDROCORTISONE ACETATE 0.1 MG TAB PO SCH (22:25)
[2022-04-09] MEDS ORDERED: HYDROmorphone INJ 1 MG/ML SYRINGE IV STA ×2 (00:50→12:54)
[2022-04-09] MEDS ORDERED: LACTATED RINGER'S 1,000 ML IV ONE (00:50)
--- NOTE | 2022-04-09 00:50 | Communication Note ---
Date of Service: April 09, 2022 Eliceo coates was called for patient at ~0030. Upon arrival at the patient's room I was told by nursing that the patient had complained of hxfrglwv-vi-[id number] pain throughout the night. Then she told her mom that she didn't feel well and was going to pass out and then became unresponsive. On examination the patient is hemodynamically stable on room air and afebrile, with palpable radial/femoral pulses - 2+ bilaterally. Heart was RRR w/o r/m/g. LCTAB. Skin pale but warm. She was initially unresponsive to verbal/tactile/noxious stimuli but after ~1-2 minutes regained full consciousness/alertness and was A+O x4. Complaining of severe abdominal pain. Telemetry monitoring showing stable NSR throughout event. Ordered CBC/CMP/hsTrop/Mg/Phos/PT/PTT/INR. Ordered LR 1L bolus and will continue with 125cc/hr maintenance rate afterwards. Ordered Dilaudid 1mg IV dose x1 in addition to current RESIN FILTERER settings. Resident Activity Tracking Resident Involvement: Resident Care Provided Care Provided: Adult [facility] Medicine
[2022-04-09] MEDS ORDERED: HYDROmorphone INJ 1 MG/ML SYRINGE ONE (00:53)
[2022-04-09 00:58] LABS: Basophils # (auto) 0.02 K/uL (0-0.2); Basophils % (auto) 0.4 %; Eosinophils % (auto) 3.6 %; Hematocrit (blood only) 30.8 % (34.1-44.9); Hemoglobin 10.2 g/dl (12.0-16.0); Immature Granulocytes # (auto) 0.01 K/uL (0.00-0.02); Immature Granulocytes % (auto) 0.2 %; Lymphocytes # (auto) 1.19 K/uL (1.2-3.4); Lymphocytes % (auto) 21.6 %; Mean Corpuscular Hemoglobin 31.5 pg (25.0-34.0); Mean Corpuscular Hgb Conc 33.1 g/dL (32.0-36.0); Mean Corpuscular Volume 95.1 fL (80.0-100.0); Mean Platelet Volume 10.3 fL (9.4-12.3); Monocytes # (auto) 0.48 K/uL (0.24-0.82); Monocytes % (auto) 8.7 %; Neutrophils # (auto) 3.61 K/uL (1.4-6.5); Neutrophils % (auto) 65.5 %; Platelet Count 224 K/uL (130-400); RDW Standard Deviation 41.9 fL (36.4-46.3); Red Blood Count 3.24 M/uL (3.93-5.22); White Blood Count 5.51 K/ul (4.8-10.8)
[2022-04-09 01:10] LABS: INR 1.1 (0.9-1.1); Partial Thromboplastin Ratio 0.9; Partial Thromboplastin Time 25.4 Seconds (21.0-31.0); Prothrombin Time 11.3 Seconds (9.0-12.0)
[2022-04-09] MEDS: LORazepam 0.5 MG in SYRINGE 0 ML IV PRN ×3 (01:20→21:04)
[2022-04-09] MEDS: LACTATED RINGER'S 1,000 ML IV SCH ×4 (01:21→16:13)
[2022-04-09 01:32] LABS: Albumin Globulin Ratio 1.7 (0.9-2); Albumin Level 3.8 gm/dl (3.4-5.0); BUN Creatinine Ratio 3.3 (10-20); Bilirubin,Total 0.3 mg/dl (0.2-1.0); Calcium 8.7 mg/dl (8.5-10.1); Creatinine Clr Calc Pharmacy 107.5 ml/min; Est GFR (Non-African American) 121.7 ml/min; Globulin 2.3 gm/dl (2.5-4.0); Magnesium 1.7 mg/dl (1.7-2.4); Potassium 3.9 mmol/L (3.5-5.1); Total Protein 6.1 gm/dl (6.0-8.3)
[2022-04-09] MEDS: ONDANSETRON INJ 2 MG/ML 2 ML VIAL IV PRN ×3 (05:52→16:30)
[2022-04-09] MEDS: HYDROmorphone PCA 30 MG/30 ML IV PRN ×3 (07:27→23:02)
[2022-04-09] MEDS ORDERED: HYDROCORTISONE 10 MG TAB PO SCH ×2 (09:00→14:00)
[2022-04-09] MEDS: DULoxetine HCL 60 MG CAP PO SCH (09:04)
[2022-04-09] MEDS: CHOLECALCIFEROL 1,000 UNITS 25 MCG TAB PO SCH (09:04)
[2022-04-09] MEDS: FLUDROCORTISONE ACETATE 0.1 MG TAB PO SCH ×2 (09:05→20:25)
[2022-04-09] MEDS: FAMOTIDINE 20 MG TAB PO SCH ×2 (09:05→20:26)
[2022-04-09] MEDS: GABAPENTIN 150 MG/3 ML UDP PO SCH (09:06)
[2022-04-09] MEDS: PANTOprazole 40 MG TAB PO SCH (09:07)
[2022-04-09] MEDS: DICYCLOMINE HCL 10 MG CAP PO PRN (09:08)
[2022-04-09] MEDS ORDERED: TPN/PPN CONSULT PHARMACY PRN (12:57)
[2022-04-09] MEDS ORDERED: DEXTROSE 10% 1,000 ML IV PRN (13:49)
[2022-04-09] MEDS ORDERED: GABAPENTIN 250 MG/5 ML 470 ML BTL PO SCH (14:00)
--- NOTE | 2022-04-09 14:06 | Pharmacy Report ---
Pharmacy PN Initial Consult - Date of Service April 09, 2022 - Scope Pharmacy has been consulted to manage parenteral nutrition orders and order appropriate labs. As part of the Nutrition Support Team guidelines, pharmacy will work in conjunction with dietary when determining the patients caloric needs. - Subjective The patient is a 32 year old F admitted on 04/08/22 14:24 for INTRACTABLE ABDOMINAL PAIN. Patient is to receive parenteral nutrition for chronic needs. Pertinent PMH: previously on TPN but changed to tube feeds. No longer tolerating tube feeds for at least the previous week - Objective Height: 5 ft 6 in Weight: 50.5 kg Diet: NPO Vascular Access:: central Intake & Output (Last 24Hrs): Intake & Output 04/07/22 04/08/22 04/09/22 04/10/22 06:59 06:59 06:59 06:59 Intake Total 3786.10 / 3786.10 1000 / 1000 Output Total 2500 / 2500 Balance 1286.10 / 1286.10 1000 / 1000 Weight 50.5 kg 50.5 kg Laboratory Data (Last 24 Hrs):: 04/08/22 04/09/22 14:48 00:40 Sodium 141 Potassium 3.9 D Chloride 108 H Carbon Dioxide 27 BUN 2 L Creatinine 0.61 Glucose 145 H Calcium 8.7 Phosphorus 3.9 3.0 Magnesium 1.8 1.7 Total Bilirubin 0.3 AST 13 ALT 9 Alkaline Phosphatase 53 Albumin 3.8 Nutrition Assessment:: Please refer to the Notes section of the EMR for the most recent air battle manager note. - Assessment Ms Garcia is a 32 y/o F with a PMH of chronic TPN who presents with intolerance to tube feeds and abdominal pain. TPN to be restarted; patient is high refeeding risk. Due to low volume status, will start with PPN infused centrally to provide volume (approximately 1.8 L). On day 2 of TPN, can switch to central formulation at 1 liter total volume. - Plan For day 1 of PN administration, the following will be ordered: Macronutrients Amino acids 77 grams/day Dextrose 90 grams/day Lipids 50 grams/day Micronutrients Combined electrolytes -- mL - contains 35 mEq Na, 20 meq K, 4.5 mEq Ca, 5 mEq Mg, 35 mEq Cl, 29.5 mEq acetate per 20 mL Sodium phosphate -- MMol Sodium chloride -- mEq Sodium acetate 120 mEq Potassium phosphate 15 mMol Potassium chloride 90 mEq Potassium acetate -- mEq Magnesium sulfate 12.18 mEq Calcium gluconate 9.3 mEq Multivitamins -- Trace Elements -- Additional additives: thiamine and folic acid Total volume 1934 mL to be infused over 24 hrs will provide 1112 kcal/day Labs to be ordered per PN order protocol Pharmacy will follow and adjust parenteral nutrition orders on a daily basis. Thank you.
[2022-04-09] MEDS: GABAPENTIN 250 MG/5 ML 470 ML BTL PO SCH ×2 (15:19→20:29)
[2022-04-09] MEDS ORDERED: PERIPHERAL TPN IV SCH (16:00)
[2022-04-09] MEDS ORDERED: AMINO ACIDS 4.25% IV SCH (16:00)
[2022-04-09] MEDS ORDERED: D5W IV SCH (16:00)
--- NOTE | 2022-04-09 16:31 | Hospitalist Progress Note ---
Date of Service April 09, 2022 Assessment & Plan (1) Syncope: Plan: Pt is a 32 yo female with a complicated surgical abdominal hx consisting of bowel resection, ileostomy, and hysterectomy w/ recent colectomy in February 2022, SMA syndrome, adrenal insufficiency, and gastroparesis presenting [facility] to receive fluid/nutrition. While in the [facility], she was found to be pulseless and a code blue was called. The pt responded quickly and was conscious w/ palpable pulses. Syncope - no post ictal state, EEG normal w/o electrographic evidence of seizures - during these episodes, pt is found to be in NSR w/o elevation of troponin- cardiac cause seems unlikely - more likely a vasovagal response as these episodes occur in relation to severe abdominal pain - the inability to find a palpable pulse may be related to her BP being so low in addition to her malnutrition and dehydration - pt had a similar episode overnight - pt was started on LR at 125 mL/hr and a BACK SHOE WORKER pump for pain control (0.25mg q10 min) - pt had 3 more episodes very similar to previous during the day - however, pt did take longer to respond to pain with third episode - pt was given 1 mg dilaudid after 2nd episode to help control pain - BACK SHOE WORKER was also increased to 0.3 mg q10 min - pt given extra dose of 4 mg zofran after 3rd episode d/t nausea - continue to monitor closely Abdominal pain - unsure of exact cause of increased abdominal pain; ostomy dysfunction vs. adhesions vs ? - pt accepted for transfer to [facility] where her surgical team is, awaiting bed - as there seems to be no acute abdominal process going on, CT can wait until transfer to ensure continuity; if clinical status changes, CT scan here may become necessary - chronic pain management is difficult as opioids may worsen motility issue but her pain is obviously significant Malnutrition - Has been switched to tube feeds by [facility]; was not really able to tolerate them - resume TPN while here Hypokalemia - 3.1 upon admission, repleted - today, 3.9 (2) Abdominal pain: (3) Malnutrition: (4) Status post ileostomy: (5) Hypokalemia: Plan FEN: LR 125 mL/hr, TPN DVT ppx: ambulation Code: full Dispo: accepted to [facility], awaiting bed Admission and Anticipated Discharge Date Admission Date: April 08, 2022 Supervising Physician Co-Signing Physician Notes I personally examined the patient and verified all solorzano points of history and exam, discussed case, and agree with decision making with Dr Victor Several episodes of unresponsiveness today. I was present at the bedside for 2 for almost the entire duration, and at the end of a third 1 attended to by senior resident and rounding resident physician. Was obviously not present at the beginning of the episodes, but in discussion with the patient each time she had some sort of GI distress immediately preceding the episode, and went unresponsive. While she was unresponsive, mostly she was slumped to the side looking very pale, for each episode I was present at she had a palpable radial pulse that felt regular 80-100 the entire time, no lateralizing or focal neurodeficits, did not really respond to loud voice or noxious stim, episodes lasted approximately 1 to 3 minutesthe last 30 seconds or so of the episodes she had irregular myoclonic jerking (that could easily be misconstrued as possible seizure activity as described by her mom with episodes at home)shortly after the myoclonic jerking she would awaken be very fatigued but immediately oriented. Later on a third revisit she is feeling better, pain is under reasonable controlshe notes however, whenever she goes to sleep she starts to fall behind with pain medicines. We discussed the risk and limitation of doing a continuous drip of Dilaudid, and agreed that a milligram at bedtime to try to reduce falling behind may be of benefit. Her mother also raised the concern about not being able to get Dilaudid in an ambulanceto which we discussed the potential for air transportbut I discussed openly my concern about not being able to predict financials, openly did not want them to risk tens of thousands of dollars of debt potentially for means of transport. Discussed that it certainly quite easy for us to change to air transport if they would prefer, but wanted them to be able to discuss the situation first. Vitals noted, in general she is awake and alert fatigued no distressthis was the evening visit, the episodes above as above. No focal neurodeficits. Skin pale during the episodes, her new baseline of pale otherwise without any ongoing little bit of a blotchy rash on her neck and upper shoulders. [facility] Nothing consistent with an acute deteriorating abdomen at this timetherefore okay to wait the bed. Continue pain control with Dilaudid BACK SHOE WORKER, add at bedtime to prevent falling behind when the BACK SHOE WORKER has not been clicked Syncopal episodessuspect it is probably a combination of vagal and POTS. When she was pulseless I suspect this was probably because the drop in blood pressure from these type of events typically is about 70 systolic, but given that she was dehydrated and malnourished I could easily conceive that she would drop to less than thatand make her pulses not palpable. This is corroborated by the fact that while she was continuing to still have the episodes today, we were able to feel a pulse each timethe main difference being she has had several liters of isotonic fluid. To try to blunt the episodes furthermidodrine added to her Florinef/hydrocortisone, and hydrocortisone stress dose to IV for now Otherwise as above Subjective Pt is a 32 yo female with a complicated surgical abdominal hx consisting of bowel resection, ileostomy, and hysterectomy w/ recent colectomy in February 2022, SMA syndrome, adrenal insufficiency, and gastroparesis presenting to the [facility] to receive fluid/nutrition. While in the [facility], she was found to be pulseless and a code blue was called. Pt was seen at bedside this morning. Her pain was controlled at that time. Her pain is mostly around her ostomy site. Pt denies SOB, chest pain, lightheadedness, and dizziness. Physical Exam Constitutional: NAD. Vitals WNL. Eyes: no conjunctival abnormality Respiratory: CTA bilaterally. No rhonchi, wheezing, or crackles. Non labored breathing. Cardiovascular: RRR. No murmur noted. No LL edema. Gastrointestinal (Abdomen): Soft. Tender to light palpation around ostomy site, otherwise nontender. +BS. No masses noted. Skin: no rashes, warm and dry Psychiatric: Alert. Mood and affect congruent. Results & Data Results & Data ([facility]) Vital Signs (Past 12 Hours) Vital Signs Temp Pulse Pulse Resp BP Pulse Ox O2 Del Method 04/09/22 16:06 36.7 C 96 H 17 114/77 99 Room Air 04/09/22 09:00 93 H 04/09/22 09:00 Nasal Cannula 04/09/22 11:50 37.2 C 77 16 115/80 95 Room Air 04/09/22 08:09 36.8 C 77 16 95/63 L 96 Room Air O2 Flow Rate 04/09/22 16:06 04/09/22 09:00 04/09/22 09:00 2 04/09/22 11:50 04/09/22 08:09 Resident Activity Tracking Resident Involvement: Resident Care Provided Care Provided: Adult Hospital Medicine
--- NOTE | 2022-04-09 16:53 | Electroencephalogram ---
EEG Procedure Note Date of Service April 09, 2022 Start / End Times Start Time: 13:53 End Time: 14:13 Referring Physician Ramses Layne History Syncope Home Medication List Medication Instructions Recorded Confirmed Type dicyclomine 10 mg capsule 10 - 20 mg PO Q6H PRN Abdominal 03/07/18 04/08/22 History Pain hyoscyamine sulfate 0.125 mg 0.125 mg sublingual Q4H PRN 03/07/18 04/08/22 History sublingual tablet (Levsin/SL) Abdominal Cramping pantoprazole 40 mg tablet,delayed 40 mg PO QAM 09/08/19 04/08/22 History release (Protonix) famotidine 40 mg tablet 20 mg PO BID 11/28/19 04/08/22 History lorazepam 2 mg/mL injection 0.5 mg buccal QID PRN Nausea 12/05/19 04/08/22 History solution (Ativan) hydrocortisone 10 mg tablet 10 - 15 mg PO BID 02/07/20 04/08/22 History ondansetron 4 mg disintegrating 4 mg translingual Q6H PRN Nausea 02/07/20 04/08/22 History tablet trimethobenzamide 300 mg capsule 300 mg PO Q6H PRN Nausea And 02/07/20 04/08/22 History Vomiting fexofenadine 180 mg tablet 180 mg PO PM 10/09/20 04/08/22 History gabapentin 250 mg/5 mL oral 300 mg PO TID 10/09/20 04/08/22 History solution fludrocortisone 0.1 mg tablet See Rx Instructions .Route .COMPLEX 12/12/20 04/08/22 History acetaminophen 500 mg tablet 1,000 mg PO Q6H PRN Pain 06/13/21 04/08/22 History (Tylenol Extra Strength) coenzyme Q10 100 mg capsule 0 mg PO PM 06/13/21 04/08/22 History (CoQ-10) multivitamin with minerals-folic 2 tab PO PM 06/13/21 04/08/22 History acid 200 mcg chewable tablet (Multivitamin Gummies) turmeric 400 mg capsule 400 mg PO PM 06/13/21 04/08/22 History empty container (Enema Misc Bottle) #72 ea 01/16/22 04/02/22 Rx hydromorphone 1 mg/mL oral liquid 2 mg PO Q4H PRN Pain 04/01/22 04/08/22 History cholecalciferol (vitamin D3) 25 50 mcg PO DAILY 04/07/22 04/08/22 History mcg (1,000 unit) capsule (Vitamin D3) duloxetine 60 mg capsule,delayed 60 mg PO DAILY 04/07/22 04/08/22 History release methocarbamol 750 mg tablet 750 mg PO Q8H PRN MUSCLE SPASMS 04/07/22 04/08/22 H istory Inpatient Medication List Dicyclomine HCl (Dicyclomine Hcl 10 Mg Cap) 20 mg PO QID PRN PRN Reason: Abdominal Pain Stop: 05/08/22 21:47 Last Admin: 04/09/22 09:08 Dose: 20 mg Documented By: JENNIFER Duloxetine HCl (Duloxetine Hcl 60 Mg Cap) 60 mg PO DAILY EMEARLD Stop: 05/09/22 08:59 Last Admin: 04/09/22 09:04 Dose: 60 mg Documented By: JENNIFER Famotidine (Famotidine 20 Mg Tab) 20 mg PO BID EMERALD Stop: 05/08/22 20:59 Last Admin: 04/09/22 09:05 Dose: 20 mg Documented By: Admin: 04/08/22 21:13 Dose: 20 mg Documented By: LEONARDA Fexofenadine HCl (Fexofenadine Hcl 180 Mg Tab) 180 mg PO PM EMERALD Stop: 05/08/22 20:59 Last Admin: 04/08/22 21:13 Dose: 180 mg Documented By: LEONARDA Fludrocortisone Acetate (Fludrocortisone Acetate 0.1 Mg Tab) 0.2 mg PO QAM EMERALD Stop: 05/09/22 08:59 Last Admin: 04/09/22 09:05 Dose: 0.2 mg Documented By: JENNIFER Fludrocortisone Acetate (Fludrocortisone Acetate 0.1 Mg Tab) 0.1 mg PO QPM EMERALD Stop: 05/08/22 20:59 Last Admin: 04/08/22 22:25 Dose: 0.1 mg Documented By: LEONARDA Gabapentin (Gabapentin 250 Mg/5 Ml 470 Ml Btl) 300 mg PO TID EMERALD Stop: 05/08/22 20:59 Last Admin: 04/09/22 15:19 Dose: 300 mg Documented By: Admin: 04/08/22 21:16 Dose: 300 mg Documented By: Admin: 04/08/22 21:15 Dose: 300 mg Documented By: LEONARDA Hydrocortisone (Hydrocortisone 10 Mg Tab) 15 mg PO QAM EMERALD Stop: 05/09/22 08:59 Last Admin: 04/09/22 09:07 Dose: 15 mg Documented By: JENNIFER Hydrocortisone (Hydrocortisone 10 Mg Tab) 10 mg PO DAILY@1400 EMERALD Stop: 05/09/22 13:59 Last Admin: 04/09/22 15:17 Dose: 10 mg Documented By: JENNIFER Hydromorphone HCl (Hydromorphone Brass Pickler 30 Mg/30 Ml) 30 mg IV PRN PRN; Protocol PRN 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: 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 Pain Titration Stop: 04/22/22 14:37 Last Admin: 04/09/22 12:55 Dose: 30 mg Documented By: JENNIFER Co-signed By: JEANNINE Admin: 04/09/22 07:27 Dose: 30 mg Documented By: JENNIFER Co-signed By: LEONARDA Admin: 04/08/22 15:39 Dose: 30 mg Documented By: FARZAD Co-signed By: MEGHNA Lactated Ringer's (Lr) 1,000 mls @ 125 mls/hr IV .Q8H EMERALD Stop: 05/08/22 14:37 Last Admin: 04/09/22 16:13 Dose: 125 mls/hr Documented By: Infusion: 04/09/22 16:13 Dose: 125 mls/hr Documented By: Admin: 04/09/22 10:04 Dose: 125 mls/hr Documented By: Infusion: 04/09/22 10:03 Dose: 0 mls/hr Documented By: Admin: 04/09/22 02:06 Dose: 125 mls/hr Documented By: Infusion: 04/09/22 02:06 Dose: 125 mls/hr Documented By: Admin: 04/09/22 01:21 Dose: 125 mls/hr Documented By: Infusion: 04/08/22 23:48 Dose: 125 mls/hr Documented By: Admin: 04/08/22 15:48 Dose: 125 mls/hr Documented By: FARZAD Lorazepam 0.5 mg/ Syringe 0.5 mls @ 2 mls/min IV QID PRN PRN Reason: nausea Stop: 05/08/22 16:00 Last Admin: 04/09/22 08:30 Dose: 2 mls/min Documented By: Admin: 04/09/22 01:20 Dose: 2 mls/min Documented By: Admin: 04/08/22 18:25 Dose: 2 mls/min Documented By: FARZAD Methocarbamol (Methocarbamol 750 Mg Tablet) 750 mg PO Q8H PRN PRN Reason: MUSCLE SPASMS Stop: 05/08/22 14:37 Last Admin: 04/08/22 22:11 Dose: 750 mg Documented By: LEONARDA Ondansetron HCl (Ondansetron Inj 2 Mg/Ml 2 Ml Vial) 4 mg IV Q6H PRN PRN Reason: Nausea Stop: 05/08/22 14:37 Last Admin: 04/09/22 14:26 Dose: 4 mg Documented By: Admin: 04/09/22 05:52 Dose: 4 mg Documented By: Admin: 04/08/22 22:08 Dose: 4 mg Documented By: Admin: 04/08/22 15:38 Dose: 4 mg Documented By: FARZAD Pantoprazole Sodium (Pantoprazole 40 Mg Tab) 40 mg PO QAM EMERALD Stop: 05/09/22 08:59 Last Admin: 04/09/22 09:07 Dose: 40 mg Documented By: JENNIFER Vitamin D (Cholecalciferol 1,000 Units 25 Mcg Tab) 2,000 units PO DAILY EMERALD Stop: 05/09/22 08:59 Last Admin: 04/09/22 09:04 Dose: 2,000 units Documented By: JENNIFER Discontinued Medications Dicyclomine HCl (Dicyclomine Hcl 10 Mg Cap) 10 - 20 mg PO Q6H PRN PRN Reason: Abdominal Pain Stop: 05/08/22 14:37 Last Admin: 04/08/22 22:12 Dose: 20 mg Documented By: LEONARDA Fludrocortisone Acetate (Fludrocortisone Acetate 0.1 Mg Tab) 0.1 - 0.2 mg PO BID EMERALD Stop: 05/08/22 20:59 Last Admin: 04/08/22 22:09 Dose: 0.1 mg Documented By: LEONARDA Gabapentin (Gabapentin 150 Mg/3 Ml Udp) 300 mg PO TID EMERALD Stop: 05/08/22 20:59 Last Admin: 04/09/22 09:06 Dose: 300 mg Documented By: Admin: 04/08/22 21:27 Dose: 300 mg Documented By: LEONARDA Heparin Sodium (Porcine) (Heparin 100 Unit/Ml 5ml Flush) Confirm Administered Dose 5 ml .ROUTE .STK-MED ONE Stop: 04/08/22 14:34 Last Admin: 04/08/22 14:37 Dose: 5 ml Documented By: BROOKS Hydrocortisone (Hydrocortisone 10 Mg Tab) 10 - 15 mg PO BID EMERALD Stop: 05/08/22 20:59 Last Admin: 04/08/22 22:10 Dose: 10 mg Documented By: LEONARDA Hydromorphone HCl (Hydromorphone Inj 1 Mg/Ml Syringe) Confirm Administered Dose 1 mg .ROUTE .STK-MED ONE Stop: 04/08/22 14:32 Last Admin: 04/08/22 14:37 Dose: 1 mg Documented By: BROOKS Hydromorphone HCl (Hydromorphone Inj 1 Mg/Ml Syringe) 1 mg IV NOW STA Stop: 04/09/22 00:51 Last Admin: 04/09/22 01:19 Dose: 1 mg Documented By: LEONARDA Hydromorphone HCl (Hydromorphone Inj 1 Mg/Ml Syringe) Confirm Administered Dose 1 mg .ROUTE .STK-MED ONE Stop: 04/09/22 00:54 Last Admin: 04/09/22 01:02 Dose: Not Given Documented By: LEONARDA Hydromorphone HCl (Hydromorphone Inj 1 Mg/Ml Syringe) 1 mg IV NOW STA Stop: 04/09/22 12:55 Last Admin: 04/09/22 13:02 Dose: 1 mg Documented By: JENNIFER Potassium Chloride (K Larry / Wtr) 10 meq in 100 mls @ 100 mls/hr IV Q1H EMERALD Stop: 04/08/22 21:59 Last Infusion: 04/09/22 03:59 Dose: 0 mls/hr Documented By: Admin: 04/08/22 23:31 Dose: 100 mls/hr Documented By: Infusion: 04/08/22 23:20 Dose: 100 mls/hr Documented By: Admin: 04/08/22 22:20 Dose: 100 mls/hr Documented By: Infusion: 04/08/22 22:04 Dose: 100 mls/hr Documented By: Admin: 04/08/22 21:04 Dose: 100 mls/hr Documented By: Infusion: 04/08/22 20:47 Dose: 100 mls/hr Documented By: Admin: 04/08/22 19:47 Dose: 100 mls/hr Documented By: Infusion: 04/08/22 19:44 Dose: 100 mls/hr Documented By: Admin: 04/08/22 18:44 Dose: 100 mls/hr Documented By: Infusion: 04/08/22 18:44 Dose: 100 mls/hr Documented By: Admin: 04/08/22 17:50 Dose: 100 mls/hr Documented By: FARZAD Lactated Ringer's (Lr) 1,000 mls @ 999 mls/hr IV .Q1H1M ONE Stop: 04/08/22 19:59 Last Infusion: 04/08/22 22:31 Dose: 0 mls/hr Documented By: Admin: 04/08/22 19:51 Dose: 999 mls/hr Documented By: PAULINE Lactated Ringer's (Lr) 1,000 mls @ 999 mls/hr IV .Q1H1M ONE Stop: 04/09/22 01:50 Last Infusion: 04/09/22 02:20 Dose: 0 mls/hr Documented By: Admin: 04/09/22 01:21 Dose: 999 mls/hr Documented By: LEONARDA Miscellaneous (Patient's Height &/Or Weight Needed) 1 each N/A Q2H EMERALD Stop: 05/08/22 15:44 Last Admin: 04/08/22 21:05 Dose: 1 each Documented By: LEONARDA Description This is a 21 electrode EEG with a single channel dedicated to limited EKG. The electrodes were placed in accordance with the International 10-20 system. Interpretation During restful wakefulness, there is 20 to 30 V, 10 Hz posterior activity, attenuates with eye opening bilaterally. Background activity shows good organization without focal slowing. Photic stimulations induce posterior driving responses bilaterally. Hyperventilation is not attempted. There is no sleep-related pattern. There are no electrographic seizures or epileptogenic discharges. Impression: This EEG, recorded in wakefulness only, is normal. There is no electrographic seizures or epileptogenic discharge. Clinical Correlation Normal routine interictal EEG does not rule out seizure disorder definitively. Clinical correlation is suggested.
[2022-04-09] MEDS: MIDODRINE HCL 2.5 MG TAB PO SCH (17:37)
--- NOTE | 2022-04-09 18:58 | Billing Data ---
Date of Service April 09, 2022 Coding Level of Care Code 32480 Subseq Hosp Care Lvl 3
[2022-04-09] MEDS: FEXOFENADINE HCL 180 MG TAB PO SCH (20:26)
[2022-04-09] MEDS: HYDROCORTISONE SOD 50 MG in SYRINGE 0 ML IV SCH (20:27)
[2022-04-09] MEDS ORDERED: HYDROmorphone INJ 1 MG/ML SYRINGE IV SCH (21:00)
[2022-04-09] MEDS ORDERED: LORazepam 2 MG in SYRINGE 0 ML IV STA ×2 (22:31→22:45)
[2022-04-09] MEDS ORDERED: LORazepam 2 MG in SYRINGE 0 ML IV PRN (22:56)
[2022-04-09 23:17] LABS: Base Excess ABG 7.3 mEq/L (-9-1.8); HCO3 ABG 34 mmol/L (19-24); Oxygen Saturation ABG 99.6 % (90-95); PCO2 ABG 53 mmHg (35-46); PO2 ABG 139 mmHg (80-95); pH ABG 7.41 (7.35-7.45)
--- NOTE | 2022-04-09 23:17 | Communication Note ---
Date of Service: April 09, 2022 There were two code purples called yesterday evening - at ~22:30 and 23:30. Both were for patient becoming unresponsive and having generalized convulsions for 2- 3 minutes. Patient also had a third episode lasting several minutes, at ~00:00 on 04/10. Patient eyes were closed during these events and she did not have bowel/bladder incontinence. Patient maintained adequate oxygenation and hemodynamic stability throughout the episodes. After several minutes patient regained full consciousness and was A+Ox3 and complaining of severe abdominal pain. Patient did receive Ativan 2mg IV at onset of 2nd and 3rd episodes. She also received Dilaudid 1mg IV x1 after 1st episode. Non-epileptic seizures: Patient had normal EEG earlier in the day. 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 Patient has maintained hemodynamic stability and adequate oxygenation throughout these episodes and does not have post-ictal phase. - Neurology consulted - appreciate recs - adjusted ORTHOPTIST pump settings to help stay ahead of pain, as patient reports that she has a difficult time with pushes only to keep up with pain - basal Dilaudid 0.5mg/hr - maintain pushes with Dilaudid 0.3mg [id number] PRN - defer further adjustments of pain regimen to primary team Resident Activity Tracking Resident Involvement: Resident Care Provided Care Provided: Adult Hospital Medicine
[2022-04-09 23:28] LABS: Allen Test Pos (Pos)
[2022-04-10] MEDS ORDERED: FAT EMUL/SOY/MCT/OLIV/FISH OIL 50 GM/250 ML BAG IV SCH
--- NOTE | 2022-04-10 00:02 | Electrocardiogram Report ---
Test Reason : Blood Pressure : / mmHG Vent. Rate : 078 BPM Atrial Rate : 078 BPM P-R Int : 116 ms QRS Dur : 086 ms QT Int : 380 ms P-R-T Axes : 049 039 041 degrees QTc Int : 433 ms Poor data quality, interpretation may be adversely affected Normal sinus rhythm Normal ECG When compared with ECG of 07-APR-2022 03:06, No significant change was found Confirmed by John Nathan ([id number]) on 04/10/2022 12:02:01 AM Referred By: Ramses Layne Confirmed By:John Nathan
[2022-04-10] MEDS: LACTATED RINGER'S 1,000 ML IV SCH ×2 (00:12→07:57)
[2022-04-10] MEDS: ONDANSETRON INJ 2 MG/ML 2 ML VIAL IV PRN ×2 (04:18→11:04)
[2022-04-10] MEDS: DICYCLOMINE HCL 10 MG CAP PO PRN (04:22)
[2022-04-10] MEDS: METHOCARBAMOL 750 MG TABLET PO PRN (04:22)
[2022-04-10 06:16] LABS: Anion Gap 2 (3-11); BUN Creatinine Ratio 16.7 (10-20); Blood Urea Nitrogen 8 mg/dl (6-23); Calcium 8.2 mg/dl (8.5-10.1); Carbon Dioxide 33 mmol/L (21-32); Chloride 106 mmol/L (98-107); Creatinine Clr Calc Pharmacy 136.6 ml/min; Est GFR (African American) > 150.0 ml/min; Est GFR (Non-African American) 131.6 ml/min; Glucose 110 mg/dl (70-99(Fasting)); Magnesium 1.9 mg/dl (1.7-2.4); Phosphorus 3.8 mg/dl (2.5-4.9); Potassium 3.7 mmol/L (3.5-5.1); Sodium 141 mmol/L (136-145)
[2022-04-10] MEDS ORDERED: [UNRECOGNIZED DRUG - REMARK] SCH (08:00)
[2022-04-10] MEDS: LORazepam 0.5 MG in SYRINGE 0 ML IV PRN (08:27)
[2022-04-10] MEDS: MIDODRINE HCL 2.5 MG TAB PO SCH ×2 (09:17→11:09)
[2022-04-10] MEDS: DULoxetine HCL 60 MG CAP PO SCH (09:17)
[2022-04-10] MEDS: FAMOTIDINE 20 MG TAB PO SCH (09:17)
[2022-04-10] MEDS: HYDROCORTISONE SOD 50 MG in SYRINGE 0 ML IV SCH (09:17)
[2022-04-10] MEDS: PANTOprazole 40 MG TAB PO SCH (09:17)
[2022-04-10] MEDS: CHOLECALCIFEROL 1,000 UNITS 25 MCG TAB PO SCH (09:17)
[2022-04-10] MEDS: GABAPENTIN 250 MG/5 ML 470 ML BTL PO SCH ×2 (09:18→15:15)
[2022-04-10] MEDS: FLUDROCORTISONE ACETATE 0.1 MG TAB PO SCH (09:18)
[2022-04-10] MEDS ORDERED: DOCUSATE SODIUM SYRUP 100 MG/10 ML UDC PO SCH (10:30)
[2022-04-10] MEDS ORDERED: RAPID SEQUENCE INDUCTION BAG ONE (12:17)
[2022-04-10] MEDS ORDERED: PROPOFOL IV EMULSION 10 MG/ML 100 ML VIAL IV ONE (12:37)
[2022-04-10] MEDS ORDERED: HYDROCORTISONE SOD 75 MG in SYRINGE 0 ML IV SCH (13:00)
[2022-04-10 13:05] LABS: Basophils # (auto) 0.02 K/uL (0-0.2); Basophils % (auto) 0.2 %; Eosinophils # (auto) 0.02 K/uL (0-0.50); Eosinophils % (auto) 0.2 %; Hematocrit (blood only) 30.5 % (34.1-44.9); Hemoglobin 10.2 g/dl (12.0-16.0); Immature Granulocytes # (auto) 0.02 K/uL (0.00-0.02); Immature Granulocytes % (auto) 0.2 %; Lymphocytes # (auto) 1.33 K/uL (1.2-3.4); Lymphocytes % (auto) 16.2 %; Mean Corpuscular Hemoglobin 31.8 pg (25.0-34.0); Mean Corpuscular Hgb Conc 33.4 g/dL (32.0-36.0); Mean Platelet Volume 10.7 fL (9.4-12.3); Monocytes % (auto) 4.9 %; Neutrophils # (auto) 6.42 K/uL (1.4-6.5); Neutrophils % (auto) 78.3 %; Platelet Count 255 K/uL (130-400); RDW Coefficient of Variation 11.9 % (11.5-14.5); RDW Standard Deviation 42.1 fL (36.4-46.3); Red Blood Count 3.21 M/uL (3.93-5.22); White Blood Count 8.21 K/ul (4.8-10.8)
--- NOTE | 2022-04-10 13:10 | XRay Report ---
SINGLE VIEW CHEST CLINICAL HISTORY: Intubation. FINDINGS: An AP, portable, semierect chest radiograph is compared to study dated 06/18/2021. A right quiroga bclavian central venous infusion port is unchanged in position. An endotracheal tube has been placed. The tip projects approximately 4.5 cm above the waylon. An enteric tube has been placed. The tip pro jects just below the diaphragm over the proximal stomach. The side holes project above the diaphragm. The cardiomediastinal silhouette is unremarkable. There is minimal elevation of the right hemidiaphr agm. The lungs and pleural spaces are clear. No pneumothorax is seen. The bony thorax is grossly inta ct. There is mild spinal scoliosis. IMPRESSION: 1. Endotracheal and enteric tubes have been placed as above. The enteric tube should be advanced. 2. The lung are clear. ACT 112: Negative or not required by law. Electronically signed by: Kirk Burgos M.D. 04/10/2022 1:09 PM
[2022-04-10 13:16] LABS: Alanine Aminotransferase 8 U/L (7-52); Albumin Globulin Ratio 1.7 (0.9-2); Albumin Level 3.9 gm/dl (3.4-5.0); Alkaline Phosphatase 46 U/L (34-104); Anion Gap 6 (3-11); Aspartate Aminotransferase 11 U/L (13-39); BUN Creatinine Ratio 16.7 (10-20); Bilirubin,Total 0.3 mg/dl (0.2-1.0); Blood Urea Nitrogen 9 mg/dl (6-23); Calcium 8.9 mg/dl (8.5-10.1); Carbon Dioxide 31 mmol/L (21-32); Chloride 106 mmol/L (98-107); Creatinine Clr Calc Pharmacy 121.4 ml/min; Est GFR (African American) 146.8 ml/min; Est GFR (Non-African American) 126.6 ml/min; Globulin 2.3 gm/dl (2.5-4.0); Glucose 115 mg/dl (70-99(Fasting)); Phosphorus 2.8 mg/dl (2.5-4.9); Potassium 3.8 mmol/L (3.5-5.1); Sodium 143 mmol/L (136-145); Total Protein 6.2 gm/dl (6.0-8.3)
[2022-04-10 13:24] LABS: Troponin I High Sensitivity < 2.3 pg/ml (0-14)
--- NOTE | 2022-04-10 13:26 | Procedure Note ---
Procedure Note Date of Service April 10, 2022 Note INTUBATION PROCEDURE NOTE: Provider: Mendez Adler MD A time-out was completed verifying correct patient, procedure, site, positioning. Patient was evaluated and required intubation for altered mental status with questionable status epilepticus. Sedative agent used: Etomidate 40 mg Paralysis agent used: None Emergent consent was implied given patients rapidly declining clinical status and need for airway protection. Arrived after a CODE BLUE being called. The patient has had multiple code blues and code purple's over the last 48 hours. She reportedly had seizure-like activity was administered Ativan. She initially was responsive but then became unresponsive. Patient was undergoing active [id number] ventilation by respiratory therapy on my arrival. She was exhibiting some weak respiratory effort. The patient was prepared in the appropriate fashion. Sedation was achieved utilizing etomidate. The patient was easily ventilated using [id number] to achieve adequate oxygenation. A 7.5 [place] endotracheal tube was placed under video laryngoscopic visualization. The tube was seen passing the cords. The stylette was removed and balloon was inflated with 10mL of air. Appropriate Colorimetric change was appreciated. Bilateral breath sounds were heard without air sounds in the abdomen. Post procedure chest x-ray was reviewed. The tube was slightly high above the head to the clavicles and was advanced 1.5 cm. Vent settings were given to respiratory therapy and the patient was attached to mechanical ventilator. Patient tolerated the procedure well and there were no immediate complications. Coding CPT Codes Resuscitation - Resuscitation: 11788 Endotracheal Intubation, emergency ([id number]) [facility] [place] Procedure Codes (Charges) Resuscitation Resuscitation: 85242 Endotracheal Intubation, emergency
--- NOTE | 2022-04-10 13:28 | Procedure Note ---
Procedure Note Date of Service April 10, 2022 Note ARTERIAL LINE PROCEDURE NOTE: Procedure: Arterial Line Placement Provider: Mendez Adler MD Indication: Monitoring on Pressors Anesthesia: None Procedure was emergent. The patient had just been intubated and was unable to provide consent. A time-out was completed verifying correct patient, procedure, site, positioning, and implant(s) or special equipment if applicable. Allens test was performed to ensure adequate perfusion. Patients left wrist was prepped and draped in the usual sterile fashion. Initial blind attempt was performed and was able to access the artery however the catheter was unable to thread. Converted to ultrasound-guided procedure. Ultrasound guidance was used to aid needle placement. A 20g Arrow arterial line was introduced into the left radial artery under direct ultrasound visualization. Catheter was threaded, and the needle was removed with appropriate blood return. Good waveform was observed. The patient tolerated the procedure well. Due to acuity of the situation, images would not saved to the system. Blood Loss: Minimal Complications: None Coding CPT Codes Tubes, Drains, and Vasc Access - Tubes, Drains, and Vasc Access: [id number] Insertion Catheter, Artery ([id number]) Tubes, Drains, and Vasc Access - Tubes, Drains, and Vasc Access: [id number] Ultrasound Guidance For Vascular ([id number]) [facility] [place] Procedure Codes (Charges) Tubes, Drains, and Vasc Access Procedure 1: Tubes, Drains, and Vasc Access: [id number] Insertion Catheter, Artery Procedure 2: Tubes, Drains, and Vasc Access: [id number] Ultrasound Guidance For Vascular
--- NOTE | 2022-04-10 13:31 | XCELERA ---
[id number]
--- NOTE | 2022-04-10 13:37 | Critical Care Consultation ---
Date of Consultation April 10, 2022 Assessment & Plan (1) Syncope: (2) Abdominal pain: (3) Malnutrition: (4) Syncope and collapse: Plan Impression: 32-year-old female with complicated medical history delineated above and in progress notes transferred to the ICU due to recurrent episodes of altered mental status requiring intubation and mechanical ventilation. Recommendations: 1. Neurologic: This is her primary issue resulting in arrival to the ICU. Unclear etiology for recurrent episodes of altered levels of consciousness and syncope. Neurology's been consulted and their evaluation is pending. She is had a spot EEG which was essentially normal as well as imaging during this hospitalization which was normal. Will defer additional work-up including LP and repeat imaging to neurology. Continuous EEG has been recommended and I agree with that assessment. This is not available at our institution and will require transfer to a higher level of care. The patient has been accepted at the [facility] but they are unclear when and if they would have bed avail ability. I discussed with the patient's parents at bedside and recommended that they agreed to transfer to a facility that would have neurological capabilities which appears to be the patient's primary issues. They have agreed. We will have the primary service work on transferring the patient to the closest facility with continuous EEG monitoring available. Will defer antiepileptic medications until neurology is had an opportunity to evaluate the patient. 2. Respiratory: Intubated due to ineffective respiratory drive after receiving Ativan and with altered levels of consciousness and to assist with diagnostic evaluation. Follow-up blood gas pending. Continue mechanical ventilation and reassess on a daily basis for potential ventilator liberation 3. Cardiovascular: No current issues. The patient does relate a history of relative adrenal insufficiency BP but she is normotensive currently. We will continue to monitor. Will use IV fluids to maintain effective circulating volum e. 4. GI: This appears to be the patient's primary meals on wheels driver of issues. She has chronic gastroparesis as well as SMA syndrome. Our facility is not equipped to handle these issues and we are awaiting transfer to a tertiary care facility. Continue supportive care for now. We will hold additional TPN at this point time as this may complicate the issue. May need to address nutritional status with dietary depending on clinical course and how long the patient stays here. Continue prophylaxis. 5. ID: No current issues. No indication for antimicrobial agents currently. 6. Renal: Kidney function appears normal. Acid-base status and electrolytes are stable. ICU replacement protocols. 7. Endocrine: Adrenal insufficiency as noted above. Glycemic control per ICU protocol. Patient is critically ill at this point time with significant possibility of clinical deterioration and or . A total of 79 minutes in critical care time was spent in evaluation management stabilization of this patient up to this point. Family was updated at bedside. History of Present Illness Attending Physician: Vicky Drew MD History of Present Illness Asked by hospitalist to assist in evaluation management this patient. History is obtained from discussion with the hospitalist service as well as review electronic medical record. The patient is a 32-year-old female with a complex medical history. She has a history of gastroparesis and SMA syndrome as well as severe GI motility disorder and has had multiple abdominal surgeries including ileostomy hysterectomy due to severe endometriosis. She has a feeding tube in place and receives IV fluids regularly due to inability to tolerate p.o. She was receiving these in the medical treatment unit and had a syncopal event. A CODE BLUE was called. She may receive CPR. She was transferred to the emergency room and admitted to hospitalist service on 04/08/2022. Over the last 48 hours the patient has had for CODE BLUE was on the floor as well as 7 or 8 code purple's. She had 1 episode of decreased responsiveness which led to an EEG which demonstrated no significant seizure activity on the . The patient has continued to have episodes of syncopal event with altered levels of consciousness. Today the patient had the same episode but this time became somewhat mottled. They were again concerned about seizure activity and administered 2 mg of Ativan which resulted in apneic respiratory failure. I initially responded however the patient was then talking and moving and breathing spontaneously. I was called back urgently to the bedside about 10 minutes later as the patient had again altered levels of consciousness with no respiratory effort. The patient was being bagged by respiratory therapy. Decision was made to proceed with intubation mechanical ventilation. Neurology has been consulted. They are recommending continuous EEG monitoring which is not available at our institution. She is apparently already been accepted at [facility] but there is no bed available. When our sales promotion coordinator reached out to them they stated that they had no idea when and if they would have a bed available. The patient was transferred emergently to the ICU. And arterial line was placed for hemodynamic monitoring. The patient never lost pulses or became significantly hypotensive during this episode. Weber catheter and orogastric tube were placed. Lines were confirmed with chest x-ray placement. Allergies Allergy/AdvReac Type Severity Reaction Status Date / Time adhesive Allergy Severe Redness of Verified 04/08/22 11:46 Skin morphine Allergy Severe Severe Verified 04/08/22 11:46 abdominal Pain, sphincter of oddi spasms amoxicillin Allergy Intermediate RASH Verified 04/08/22 11:46 calcium Allergy Intermediate SEE COMMENT Verified 04/08/22 11:46 [From VIACTIV Multi-Vitamin] cefazolin Allergy Intermediate rash Verified 04/08/22 11:46 Cephalosporins Allergy Intermediate HIVES Verified 04/08/22 11:46 clavulanic acid Allergy Intermediate HIVES Verified 04/08/22 11:46 folic acid Allergy Intermediate SEE COMMENT Verified 04/08/22 11:46 [From VIACTIV Multi-Vitamin] iron [From Venofer] Allergy Intermediate Muscle Pain Verified 04/08/22 11:46 multivitamin with minerals Allergy Intermediate SEE COMMENT Verified 04/08/22 11:46 [From VIACTIV Multi-Vitamin] Penicillins Allergy Intermediate HIVES Verified 04/08/22 11:46 prochlorperazine Allergy Intermediate HIVES Verified 04/08/22 11:46 promethazine Allergy Intermediate hives, Verified 04/08/22 11:46 throat swelling sulfamethoxazole Allergy Intermediate RASH Verified 04/08/22 11:46 sumatriptan Allergy Intermediate RASH Verified 04/08/22 11:46 trimethoprim Allergy Intermediate RASH Verified 04/08/22 11:46 metoclopramide AdvReac Severe anxiety/ Verified 04/08/22 11:46 jittery diphenhydramine AdvReac Intermediate Tachycardia, Verified 04/08/22 11:46 Severe Anxiety WITH IV ONLY erythromycin base AdvReac Intermediate GI SYMPTOMS Verified 04/08/22 11:46 citalopram [From Celexa] AdvReac Unknown CAN'T Verified 04/08/22 11:46 REMEMBER Home Medications Medication Instructions Recorded Confirmed Type dicyclomine 10 mg capsule 10 - 20 mg PO Q6H PRN Abdominal 03/07/18 04/08/22 History Pain hyoscyamine sulfate 0.125 mg 0.125 mg sublingual Q4H PRN 03/07/18 04/08/22 History sublingual tablet (Levsin/SL) Abdominal Cramping pantoprazole 40 mg tablet,delayed 40 mg PO QAM 09/08/19 04/08/22 History release (Protonix) famotidine 40 mg tablet 20 mg PO BID 11/28/19 04/08/22 History lorazepam 2 mg/mL injection 0.5 mg buccal QID PRN Nausea 12/05/19 04/08/22 History solution (Ativan) hydrocortisone 10 mg tablet 10 - 15 mg PO BID 02/07/20 04/08/22 History ondansetron 4 mg disintegrating 4 mg translingual Q6H PRN Nausea 02/07/20 04/08/22 History tablet trimethobenzamide 300 mg capsule 300 mg PO Q6H PRN Nausea And 02/07/20 04/08/22 History Vomiting fexofenadine 180 mg tablet 180 mg PO PM 10/09/20 04/08/22 History gabapentin 250 mg/5 mL oral 300 mg PO TID 10/09/20 04/08/22 History solution fludrocortisone 0.1 mg tablet See Rx Instructions .Route .COMPLEX 12/12/20 04/08/22 History acetaminophen 500 mg tablet 1,000 mg PO Q6H PRN Pain 06/13/21 04/08/22 History (Tylenol Extra Strength) coenzyme Q10 100 mg capsule 0 mg PO PM 06/13/21 04/08/22 History (CoQ-10) multivitamin with minerals-folic 2 tab PO PM 06/13/21 04/08/22 History acid 200 mcg chewable tablet (Multivitamin Gummies) turmeric 400 mg capsule 400 mg PO PM 06/13/21 04/08/22 History empty container (Enema Misc Bottle) #72 ea 01/16/22 04/02/22 Rx hydromorphone 1 mg/mL oral liquid 2 mg PO Q4H PRN Pain 04/01/22 04/08/22 History cholecalciferol (vitamin D3) 25 50 mcg PO DAILY 04/07/22 04/08/22 History mcg (1,000 unit) capsule (Vitamin D3) duloxetine 60 mg capsule,delayed 60 mg PO DAILY 04/07/22 04/08/22 History release methocarbamol 750 mg tablet 750 mg PO Q8H PRN MUSCLE SPASMS 04/07/22 04/08/22 History Patient History Medical History Asthma Chronic migraine Colitis Diversion colitis Elevated lipase Endometriosis has had 3 surgeries for this. Last surgery [address] Hemorrhagic cystitis Hypotension Intussusception Pancreatitis PICC (peripherally inserted central catheter) in place TPN SMAS (superior mesenteric artery syndrome) History of SMAS Sphincter of Oddi dysfunction DECREASED GI MOTILITY Transaminitis Uses feeding tube gastroparesis and decreased GI motility can not tolerate feeding and uses TPN UTI (urinary tract infection) Surgical History H/O adenoidectomy H/O laparoscopy H/O lumpectomy right breast 2011 History of appendectomy History of bowel resection Part of duodenum removed due to necrosis; done at [facility] 2019 History of hysterectomy 09/27/19 History of removal of Port-a-Cath 10/13/[address] Geiger, [facility], due to bacteremia/sepsis. History of vascular access device 2017 Hx of colonoscopy during procedure perforated small bowel 10/27/[address] [facility], subsequent repair of duodenal area. Hx of ileostomy Hx of tonsillectomy S/P cholecystectomy 2015 S/P wrist surgery right Family History Father Hyperlipidemia Other No significant family history Social History Smoking Status: Never smoker Second Hand Exposure: No; Hx Alcohol Use: No Hx Substance Use: No Preferred Language: Danish Communication Ability: Effective Visual Impairment: No Limitations Hearing Ability: Normal [employer] Required: No Beliefs That Will Affect Care: Spiritual marital status: Single Current Living Situation: Parent and Family Current Living Situation Comment: Lives with family. current occupational status: unemployed current occupation: completed 4-year degree at [employer] How many Children do You have: 0 Other Information That Helps Us Care for You: No Feels Safe at Home: Yes Safety Concerns: Feels Safe At This Time Sexual Activity Comment: not sexually active Assistive Devices: None Review of Systems Review of Systems: Unobtainable due to endotracheal tube Physical Exam Constitutional: + thin and + cachectic Neck: trachea midline, no thyromegaly Respiratory: normal respiratory effort, lungs clear to auscultation Cardiovascular: RRR, no murmur, no edema Gastrointestinal (Abdomen): normal bowel sounds, soft, nontender, no hepatosplenomegaly Musculoskeletal: Extremities: extremities normal to inspection Skin: no rashes, warm and dry Neurologic: Nonfocal exam Lymphatic: no cervical lymphadenopathy Results & Data Results & Data ([facility]) Vital Signs (Past 12 Hours) Vital Signs Temp Pulse Pulse Resp BP BP Pulse Ox 04/10/22 12:20 68 20 132/88 100 04/10/22 10:14 61 04/10/22 10:04 04/10/22 08:19 36.8 C 90 17 100/69 100 04/10/22 04:33 36.8 C 77 18 101/68 100 04/10/22 03:23 105/70 100 O2 Del Method O2 Flow Rate 04/10/22 12:20 High Flow Nasal Cannula 15 04/10/22 10:14 04/10/22 10:04 Nasal Cannula 2.5 04/10/22 08:19 Nasal Cannula 2.0 04/10/22 04:33 Nasal Cannula 2.5 04/10/22 03:23 Nasal Cannula 2.5 Critical Care Results & Data Vital Signs (Past 12 Hours) Vital Signs Temp Pulse Pulse Resp BP BP Pulse Ox 04/10/22 12:20 68 20 132/88 100 04/10/22 10:14 61 04/10/22 10:04 04/10/22 08:19 36.8 C 90 17 100/69 100 04/10/22 04:33 36.8 C 77 18 101/68 100 04/10/22 03:23 105/70 100 O2 Del Method O2 Flow Rate 04/10/22 12:20 High Flow Nasal Cannula 15 04/10/22 10:14 04/10/22 10:04 Nasal Cannula 2.5 04/10/22 08:19 Nasal Cannula 2.0 04/10/22 04:33 Nasal Cannula 2.5 04/10/22 03:23 Nasal Cannula 2.5 Lab & Micro Results (Past 24 Hours) RBC 3.21 M/uL (3.93-5.22) L 04/10/22 WBC 8.21 K/ul (4.8-10.8) 04/10/22 Hgb 10.2 g/dl (12.0-16.0) L 04/10/22 Hct 30.5 % (34.1-44.9) L 04/10/22 MCV 95.0 fL (80.0-100.0) 04/10/22 MCH 31.8 pg (25.0-34.0) 04/10/22 MCHC 33.4 g/dL (32.0-36.0) 04/10/22 RDW Standard Deviation 42.1 fL (36.4-46.3) 04/10/22 RDW Coefficient of Variation 11.9 % (11.5-14.5) 04/10/22 Plt Count 255 K/uL (130-400) 04/10/22 MPV 10.7 fL (9.4-12.3) 04/10/22 Neutrophils (%) (Auto) 78.3 % 04/10/22 Lymphocytes (%) (Auto) 16.2 % 04/10/22 Monocytes # (Auto) 0.40 K/uL (0.24-0.82) 04/10/22 Eosinophils # (Auto) 0.02 K/uL (0-0.50) 04/10/22 Immature Granulocyte % (Auto) 0.2 % 04/10/22 Neutrophils # (Auto) 6.42 K/uL (1.4-6.5) 04/10/22 Lymphocytes # (Auto) 1.33 K/uL (1.2-3.4) 04/10/22 Monocytes # (Auto) 0.40 K/uL (0.24-0.82) 04/10/22 Eosinophils # (Auto) 0.02 K/uL (0-0.50) 04/10/22 Basophils # (Auto) 0.02 K/uL (0-0.2) 04/10/22 Immature Granulocyte # (Auto) 0.02 K/uL (0.00-0.02) 2 Na 143 mmol/L (136-145) 04/10/22 K 3.8 mmol/L (3.5-5.1) 04/10/22 Cl 106 mmol/L (98-107) 04/10/22 CO2 31 mmol/L (21-32) 04/10/22 Anion Gap 6 (3-11) 04/10/22 BUN 9 mg/dl (6-23) 04/10/22 Creatinine 0.54 mg/dl (0.6-1.2) L 04/10/22 Estimated GFR ( Amer) 146.8 ml/min 04/10/22 Estimated GFR (Non-Af Amer) 126.6 ml/min 04/10/22 BUN/Creatinine Ratio 16.7 (10-20) 04/10/22 Glu 115 mg/dl (70-99(Fasting)) H 04/10/22 Ca 8.9 mg/dl (8.5-10.1) 04/10/22 Phosphorus Level 2.8 mg/dl (2.5-4.9) 04/10/22 Total Bilirubin 0.3 mg/dl (0.2-1.0) 04/10/22 AST 11 U/L (13-39) L 04/10/22 ALT 8 U/L (7-52) 04/10/22 Alkaline Phosphatase 46 U/L (34-104) 04/10/22 TP 6.2 gm/dl (6.0-8.3) 04/10/22 Albumin 3.9 gm/dl (3.4-5.0) 04/10/22 Globulin 2.3 gm/dl (2.5-4.0) L 04/10/22 Albumin/Globulin Ratio 1.7 (0.9-2) 04/10/22 Mg 2.0 mg/dl (1.7-2.4) 04/10/22 11: Calcium Level 8.9 mg/dl (8.5-10.1) 04/10/22 11:22 Arterial Blood pH 7.41 (7.35-7.45) 04/09/22 23:04 Arterial Blood Partial Pressure CO2 53 mmHg (35-46) H 04/09/22 23:04 Arterial Blood Partial Pressure O2 139 mmHg (80-95) H 04/09/22 23:04 Arterial Blood HCO3 34 mmol/L (19-24) H 04/09/22 23:04 Arterial Blood Base Excess 7.3 mEq/L (-9-1.8) H 04/09/22 23:04 Arterial Blood Oxygen Saturation 99.6 % (90-95) H 04/09/22 23:0 4 Blood Gas Oxygen Given 2.5 04/09/22 23:04 Joel Test Pos (Pos) 04/09/22 23:04 Diagnostic Findings (Past 24 Hours) Chest X-Ray 04/10/22 12:47 SINGLE VIEW CHEST CLINICAL HISTORY: Intubation. FINDINGS: An AP, portable, semierect chest radiograph is compared to study dated 06/18/2021. A right subclavian central venous infusion port is unchanged in position. An endotracheal tube has been placed. The tip projects approximately 4.5 cm above the waylon. An enteric tube has been placed. The tip projects just below the diaphragm over the proximal stomach. The side holes project above the diaphragm. The cardiomediastinal silhouette is unremarkable. There is minimal elevation of the right hemidiaphragm. The lungs and pleural spaces are clear. No pneumothorax is seen. The bony thorax is grossly intact. There is mild spinal scoliosis. IMPRESSION: 1. Endotracheal and enteric tubes have been placed as above. The enteric tube should be advanced. 2. The lung are clear. ACT 112: Negative or not required by law. Electronically signed by: Kirk Burgos M.D. 04/10/2022 1:09 PM I & O Totals 24 Hours 04/09/22 04/10/22 04/11/22 06:59 06:59 06:59 Intake Total 3786.10 / 3786.10 3497.917 / 3497.917 1000 / 1000 Output Total 2500 / 2500 5400 / 5400 Balance 1286.10 / 1286.10 -1902.083 / -4338.284 5771 / 1000 Cumulative 04/08/22 13:47 thru 04/10/22 07:57 Intake Total 8284.017 Output Total 7900 Balance 384.017 RT Ventilator Mngmt (Last Documented) Ventilator Ordered Settings Respiratory Rate 20 04/10/22 12:20 Ventilator - PT Measurements Respiratory Rate 20 Coding Level of Care Code Critical Care 1st 30-74 mins Diagnoses Syncope R55 Abdominal pain R10.9 Malnutrition E46 Syncope and collapse R55 Time Spent (min) 79
--- NOTE | 2022-04-10 13:56 | Neurology Consultation ---
Date of Consultation April 10, 2022 Assessment & Plan (1) Witnessed seizure-like activity: Impression: The patient has been having recurrent episodes of loss of consciousness with convulsion, typically starts after severe abdominal pain, which was initially considered to be likely vasovagal hyperactivity. During recent episodes, the patient's blood pressure was not too low and she was not pale, which raised concern for epileptic seizures. EEG from yesterday was unremarkable. The patient received Ativan during recent prolonged convulsive episode, with following respiratory dysfunction, and was intubated. Such episodes are still likely due to GI problem induced vasovagal hyperactivity. Based on elevated prolactin level during last event, psychogenic nonepileptic seizures are unlikely. Epileptic seizures are considered less likely but still in differential until further work-up. Recommendations: Repeat EEG, stat, to rule out status epilepticus. We will start patient on IV Depakene 500 mg twice a day. The patient will need continuous EEG monitoring to catch at least one of such events, which will be conclusive. We will follow patient's with you. (2) Malnutrition: (3) Abdominal pain: (4) Vasovagal near-syncope: (5) Syncope: (6) Syncope and collapse: (7) Chronic abdominal pain: (8) Diversion colitis: Plan Thank you for the consultation. History of Present Illness Reason for Consultation: Episodes of LOC with convulsions Requesting Physician: Vicky Drew MD Attending Physician: Vicky Drew MD History of Present Illness The patient is a 32-year-old female, who was admitted to hospital the day before yesterday, because of poor oral intake, and recurrent episodes of loss of consciousness, decreased blood pressure, with preceding abdominal pain. Apparently, the patient has had multiple similar episodes during hospital stay, and CODE BLUE was activated. The last event was today around noon time, while the patient was having echocardiogram, which reportedly lasted for several minutes (11 minutes). According to witnessed physician, the patient was not pale, and blood pressure was 90/40. EKG was showing sinus rhythm. The patient was unconscious, and was having whole body tonic activity with intermittent, irregular, myoclonic jerks. She received 2 mg of Ativan, which stopped convulsive activity, but the patient developed prolonged apnea and poor respiratory effort, and eventually was intubated and admitted to intensive care unit. EEG was done yesterday, which was unremarkable. The patient has extensive gastrointestinal history, who was recently discharged from [facility]. She has ostomy with very poor oral tolerance, and recurrent, severe abdominal pain, which sometimes induce loss of consciousness episodes, with tonic and sometimes myoclonic activity, typically lasting from 30 seconds up to a few minutes. Reportedly, the patient regains her cognitive functioning abruptly after stopping convulsive episodes, which was considered to be nonepi leptic. The patient also has history of POTS disease, on treatment. The patient has no prior history of seizure or seizure-like activities, and obviously, such episodes started with gastrointestinal problems and inciting gastric pain symptoms. She is excepted to [facility], but they do not have available bed, and transfer is pending. Because of the most recent, prolonged episode of loss of consciousness and convulsive activity, neurology consultation is requested. I have reviewed the patient's chart and discussed the case with hospitalist physician. Please see below, detailed description of some of her episodes nicely by Dr. Layne. (I personally examined the patient and verified all solorzano points of history and exam, discussed case, and agree with decision making with Dr Victor Several episodes of unresponsiveness today. I was present at the bedside for 2 for almost the entire duration, and at the end of a third 1 attended to by senior resident and rounding resident physician. Was obviously not present at the beginning of the episodes, but in discussion with the patient each time she had some sort of GI distress immediately preceding the episode, and went unresponsive. While she was unresponsive, mostly she was slumped to the side looking very pale, for each episode I was present at she had a palpable radial pulse that felt regular 80-100 the entire time, no lateralizing or focal neurodeficits, did not really respond to loud voice or noxious stim, episodes lasted approximately 1 to 3 minutesthe last 30 seconds or so of the episodes she had irregular myoclonic jerking (that could easily be misconstrued as possible seizure activity as described by her mom with episodes at home)shortly after the myoclonic jerking she would awaken be very fatigued but immediately oriented. Later on a third revisit she is feeling better, pain is under reasonable controlshe notes however, whenever she goes to sleep she starts to fall behind with pain medicines. We discussed the risk and limitation of doing a continuous drip of Dilaudid, and agreed that a milligram at bedtime to try to reduce falling behind may be of benefit. Her mother also raised the concern about not being able to get Dilaudid in an ambulanceto which we discussed the potential for air transportbut I discussed openly my concern about not being able to predict financials, openly did not want them to risk tens of thousands of dollars of debt potentially for means of transport. Discussed that it certainly quite easy for us to change to air transport if they would prefer, but wanted them to be able to discuss the situation first. Vitals noted, in general she is awake and alert fatigued no distressthis was the evening visit, the episodes above as above. No focal neurodeficits. Skin pale during the episodes, her new baseline of pale otherwise without any ongoing little bit of a blotchy rash on her neck and upper shoulders. [facility]. Nothing consistent with an acute deteriorating abdomen at this timetherefore okay to wait the bed. Continue pain control with Dilaudid STATION CHIEF, add at bedtime to prevent falling behind when the STATION CHIEF has not been clicked Syncopal episodessuspect it is probably a combination of vagal and POTS. When she was pulseless I suspect this was probably because the drop in blood pressure from these type of events typically is about 70 systolic, but given that she was dehydrated and malnourished I could easily conceive that she would drop to less than thatand make her pulses not palpable. This is corroborated by the fact that while she was continuing to still have the episodes today, we were able to feel a pulse each timethe main difference being she has had several liters of isotonic fluid. To try to blunt the episodes furthermidodrine added to her Florinef/hydrocortisone, and hydrocortisone stress dose to IV for now Otherwise as above 04/09/22 18:58 Ramses Layne DO) Allergies Allergy/AdvReac Type Severity Reaction Status Date / Time adhesive Allergy Severe Redness of Verified 04/08/22 11:46 Skin morphine Allergy Severe Severe Verified 04/08/22 11:46 abdominal Pain, sphincter of oddi spasms amoxicillin Allergy Intermediate RASH Verified 04/08/22 11:46 calcium Allergy Intermediate SEE COMMENT Verified 04/08/22 11:46 [From VIACTIV Multi-Vitamin] cefazolin Allergy Intermediate rash Verified 04/08/22 11:46 Cephalosporins Allergy Intermediate HIVES Verified 04/08/22 11:46 clavulanic acid Allergy Intermediate HIVES Verified 04/08/22 11:46 folic acid Allergy Intermediate SEE COMMENT Verified 04/08/22 11:46 [From VIACTIV Multi-Vitamin] iron [From Venofer] Allergy Intermediate Muscle Pain Verified 04/08/22 11:46 multivitamin with minerals Allergy Intermediate SEE COMMENT Verified 04/08/22 11:46 [From VIACTIV Multi-Vitamin] Penicillins Allergy Intermediate HIVES Verified 04/08/22 11:46 prochlorperazine Allergy Intermediate HIVES Verified 04/08/22 11:46 promethazine Allergy Intermediate hives, Verified 04/08/22 11:46 throat swelling sulfamethoxazole Allergy Intermediate RASH Verified 04/08/22 11:46 sumatriptan Allergy Intermediate RASH Verified 04/08/22 11:46 trimethoprim Allergy Intermediate RASH Verified 04/08/22 11:46 metoclopramide AdvReac Severe anxiety/ Verified 04/08/22 11:46 jittery diphenhydramine AdvReac Intermediate Tachycardia, Verified 04/08/22 11:46 Severe Anxiety WITH IV ONLY erythromycin base AdvReac Intermediate GI SYMPTOMS Verified 04/08/22 11:46 citalopram [From Celexa] AdvReac Unknown CAN'T Verified 04/08/22 11:46 REMEMBER Home Medications Medication Instructions Recorded Confirmed Type dicyclomine 10 mg capsule 10 - 20 mg PO Q6H PRN Abdominal 03/07/18 04/08/22 History Pain hyoscyamine sulfate 0.125 mg 0.125 mg sublingual Q4H PRN 03/07/18 04/08/22 History sublingual tablet (Levsin/SL) Abdominal Cramping pantoprazole 40 mg tablet,delayed 40 mg PO QAM 09/08/19 04/08/22 History release (Protonix) famotidine 40 mg tablet 20 mg PO BID 11/28/19 04/08/22 History lorazepam 2 mg/mL injection 0.5 mg buccal QID PRN Nausea 12/05/19 04/08/22 History solution (Ativan) hydrocortisone 10 mg tablet 10 - 15 mg PO BID 02/07/20 04/08/22 History ondansetron 4 mg disintegrating 4 mg translingual Q6H PRN Nausea 02/07/20 04/08/22 History tablet trimethobenzamide 300 mg capsule 300 mg PO Q6H PRN Nausea And 02/07/20 04/08/22 History Vomiting fexofenadine 180 mg tablet 180 mg PO PM 10/09/20 04/08/22 History gabapentin 250 mg/5 mL oral 300 mg PO TID 10/09/20 04/08/22 History solution fludrocortisone 0.1 mg tablet See Rx Instructions .Route .COMPLEX 12/12/20 04/08/22 History acetaminophen 500 mg tablet 1,000 mg PO Q6H PRN Pain 06/13/21 04/08/22 History (Tylenol Extra Strength) coenzyme Q10 100 mg capsule 0 mg PO PM 06/13/21 04/08/22 History (CoQ-10) multivitamin with minerals-folic 2 tab PO PM 06/13/21 04/08/22 History acid 200 mcg chewable tablet (Multivitamin Gummies) turmeric 400 mg capsule 400 mg PO PM 06/13/21 04/08/22 History empty container (Enema Misc Bottle) #72 ea 01/16/22 04/02/22 Rx hydromorphone 1 mg/mL oral liquid 2 mg PO Q4H PRN Pain 04/01/22 04/08/22 History cholecalciferol (vitamin D3) 25 50 mcg PO DAILY 04/07/22 04/08/22 History mcg (1,000 unit) capsule (Vitamin D3) duloxetine 60 mg capsule,delayed 60 mg PO DAILY 04/07/22 04/08/22 History release methocarbamol 750 mg tablet 750 mg PO Q8H PRN MUSCLE SPASMS 04/07/22 04/08/22 History Patient History Medical History Asthma Chronic migraine Colitis Diversion colitis Elevated lipase Endometriosis has had 3 surgeries for this. Last surgery [address] Hemorrhagic cystitis Hypotension Intussusception Pancreatitis PICC (peripherally inserted central catheter) in place TPN SMAS (superior mesenteric artery syndrome) History of SMAS Sphincter of Oddi dysfunction DECREASED GI MOTILITY Transaminitis Uses feeding tube gastroparesis and decreased GI motility can not tolerate feeding and uses TPN UTI (urinary tract infection) Surgical History H/O adenoidectomy H/O laparoscopy H/O lumpectomy right breast 2011 History of appendectomy History of bowel resection Part of duodenum removed due to necrosis; done at [facility] 2019 History of hysterectomy 09/27/19 History of removal of Port-a-Cath 10/13/[address] Geiger, [facility], due to bacteremia/sepsis. History of vascular access device 2017 Hx of colonoscopy during procedure perforated small bowel 10/27/2019 at [facility], subsequent repair of duodenal area. Hx of ileostomy Hx of tonsillectomy S/P cholecystectomy 2015 S/P wrist surgery right Family History Father Hyperlipidemia Other No significant family history Social History Smoking Status: Never smoker Second Hand Exposure: No; Hx Alcohol Use: No Hx Substance Use: No Preferred Language: Estonian Communication Ability: Effective Visual Impairment: No Limitations Hearing Ability: Normal Documentation Lead Required: No Beliefs That Will Affect Care: Spiritual marital status: Single Current Living Situation: Parent and Family Current Living Situation Comment: Lives with family. current occupational status: unemployed current occupation: completed 4-year degree at [employer] How many Children do You have: 0 Other Information That Helps Us Care for You: No Feels Safe at Home: Yes Safety Concerns: Feels Safe At This Time Sexual Activity Comment: not sexually active Assistive Devices: None Review of Systems Review of Systems: Unobtainable due to cognitive status Physical Exam Physical Exam: General Examination: Constitutional: Well developed person intubated and sedated. HEENT: Normal exam with inspection. CV: Hearth rhythm is regular. Neck: Supple, no carotid bruits. Lungs: Normal air flow without abnormal auscultation sounds. Abdomen: Soft, non-tender, non-distended. Skin: No rash or ecchymosis. Extremities: No edema or cyanosis NEUROLOGICAL EXAMINATION: Mental Status: Deeply sedated, unresponsive Cranial Nerves: Pupils are 3 mm and sluggishly reactive to light bilaterally. Poor but present corneal and gag reflexes. Funduscopy: Normal looking optic discs. Motor: No spontaneous movements in sedated state. She shows very slight withdrawal to deep painful stimuli. Tone: without spasticity or rigidity. Sensory: Unable to assess. Coordination: Unable to assess. Speech: Unable to assess. Gait: Unable to assess. Musculoskeletal: Normal muscle bulk, no atrophy. Results & Data ([facility]) Vital Signs (Past 12 Hours) Vital Signs Temp Pulse Pulse Resp BP BP Pulse Ox 04/10/22 12:20 68 20 132/88 100 04/10/22 10:14 61 04/10/22 10:04 04/10/22 08:19 36.8 C 90 17 100/69 100 04/10/22 04:33 36.8 C 77 18 101/68 100 04/10/22 03:23 105/70 100 O2 Del Method O2 Flow Rate 04/10/22 12:20 High Flow Nasal Cannula 15 04/10/22 10:14 04/10/22 10:04 Nasal Cannula 2.5 04/10/22 08:19 Nasal Cannula 2.0 04/10/22 04:33 Nasal Cannula 2.5 04/10/22 03:23 Nasal Cannula 2.5 Laboratory Results Laboratory Results - last 24 hr 04/09/22 04/09/22 04/10/22 22:50 23:04 05:17 WBC RBC Hgb Hct MCV MCH MCHC RDW Std Deviation RDW Coeff of Tim Plt Count MPV Immature Gran % (Auto) Neut % (Auto) Lymph % (Auto) [place] % (Auto) Eos % (Auto) Baso % (Auto) Neut # (Auto) Lymph # (Auto) [place] # (Auto) Eos # (Auto) Baso # (Auto) Immature Gran # (Auto) ABG pH 7.41 ABG pCO2 53 H ABG pO2 139 H ABG HCO3 34 H ABG O2 Saturation 99.6 H ABG Base Excess 7.3 H Joel Test Pos Oxygen Given 2.5 Sodium 141 Potassium 3.7 Chloride 106 Carbon Dioxide 33 H Anion Gap 2 L BUN 8 Creatinine 0.48 L Est Cr Clr Drug Dosing 136.6 Est GFR ( Amer) > 150.0 Est GFR (Non-Af Amer) 131.6 BUN/Creatinine Ratio 16.7 Glucose 110 H POC Glucose 159 H Calcium 8.2 L Phosphorus 3.8 Magnesium 1.9 Total Bilirubin AST ALT Alkaline Phosphatase Troponin I High Sens Total Protein Albumin Globulin Albumin/Globulin Ratio Prolactin SARS-CoV-2, RNA, NAAT 04/10/22 04/10/22 04/10/22 06:52 10:34 11:22 WBC 8.21 RBC 3.21 L Hgb 10.2 L Hct 30.5 L MCV 95.0 MCH 31.8 MCHC 33.4 RDW Std Deviation 42.1 RDW Coeff of Tim 11.9 Plt Count 255 MPV 10.7 Immature Gran % (Auto) 0.2 Neut % (Auto) 78.3 Lymph % (Auto) 16.2 [place] % (Auto) 4.9 Eos % (Auto) 0.2 Baso % (Auto) 0.2 Neut # (Auto) 6.42 Lymph # (Auto) 1.33 [place] # (Auto) 0.40 Eos # (Auto) 0.02 Baso # (Auto) 0.02 Immature Gran # (Auto) 0.02 ABG pH ABG pCO2 ABG pO2 ABG HCO3 ABG O2 Saturation ABG Base Excess Joel Test Oxygen Given Sodium Potassium Chloride Carbon Dioxide Anion Gap BUN Creatinine Est Cr Clr Drug Dosing Est GFR ( Amer) Est GFR (Non-Af Amer) BUN/Creatinine Ratio Glucose POC Glucose 124 H Calcium Phosphorus Magnesium Total Bilirubin AST ALT Alkaline Phosphatase Troponin I High Sens Total Protein Albumin Globulin Albumin/Globulin Ratio Prolactin SARS-CoV-2, RNA, NAAT NEGATIVE 04/10/22 04/10/22 04/10/22 11:22 11:22 11:58 WBC RBC Hgb Hct MCV MCH MCHC RDW Std Deviation RDW Coeff of Tim Plt Count MPV Immature Gran % (Auto) Neut % (Auto) Lymph % (Auto) [place] % (Auto) Eos % (Auto) Baso % (Auto) Neut # (Auto) Lymph # (Auto) [place] # (Auto) Eos # (Auto) Baso # (Auto) Immature Gran # (Auto) ABG pH ABG pCO2 ABG pO2 ABG HCO3 ABG O2 Saturation ABG Base Excess Joel Test Oxygen Given Sodium 143 Potassium 3.8 Chloride 106 Carbon Dioxide 31 Anion Gap 6 BUN 9 Creatinine 0.54 L Est Cr Clr Drug Dosing 121.4 Est GFR ( Amer) 146.8 Est GFR (Non-Af Amer) 126.6 BUN/Creatinine Ratio 16.7 Glucose 115 H POC Glucose 120 H Calcium 8.9 Phosphorus 2.8 D Magnesium 2.0 Total Bilirubin 0.3 AST 11 L ALT 8 Alkaline Phosphatase 46 Troponin I High Sens < 2.3 Total Protein 6.2 Albumin 3.9 Globulin 2.3 L Albumin/Globulin Ratio 1.7 Prolactin 64.59 SARS-CoV-2, RNA, NAAT Diagnostic Findings Chest X-Ray 04/10/22 12:47 SINGLE VIEW CHEST CLINICAL HISTORY: Intubation. FINDINGS: An AP, portable, semierect chest radiograph is compared to study dated 06/18/2021. A right subclavian central venous infusion port is unchanged in position. An endotracheal tube has been placed. The tip projects approximately 4.5 cm above the waylon. An enteric tube has been placed. The tip projects just below the diaphragm over the proximal stomach. The side holes project above the diaphragm. The cardiomediastinal silhouette is unremarkable. There is minimal elevation of the right hemidiaphragm. The lungs and pleural spaces are clear. No pneumothorax is seen. The bony thorax is grossly intact. There is mild spinal scoliosis. IMPRESSION: 1. Endotracheal and enteric tubes have been placed as above. The enteric tube should be advanced. 2. The lung are clear. ACT 112: Negative or not required by law. Electronically signed by: Kirk Burgos M.D. 04/10/2022 1:09 PM
[2022-04-10] MEDS ORDERED: PROPOFOL BOLUS FROM BAG IV PRN (14:08)
[2022-04-10] MEDS ORDERED: MIDAZOLAM HCL 1 MG/ML 2ML VIAL IV PRN (14:08)
[2022-04-10] MEDS ORDERED: STAT IV Infusion **Titration per Protocol STA (14:08)
[2022-04-10] MEDS ORDERED: propofoL 1,000 MG/100 ML VIAL IV SCH (14:15)
[2022-04-10] MEDS ORDERED: NORMOSOL-R 1,000 ML IV SCH (14:15)
[2022-04-10] MEDS ORDERED: VALPROATE SOD 500 MG in DEXTROSE 5% 50 ML IV SCH (15:00)
--- NOTE | 2022-04-10 15:10 | Electroencephalogram ---
EEG Procedure Note Date of Service April 10, 2022 Start / End Times Start Time: 14:19 End Time: 14:36 Referring Physician Campos Oliveira History The patient has been having prolonged convulsive episodes with loss of consciousness. Since the last prolonged episode, the patient is sedated and intubated. This EEG is ordered to rule out nonepileptic seizures. Home Medication List Medication Instructions Recorded Confirmed Type dicyclomine 10 mg capsule 10 - 20 mg PO Q6H PRN Abdominal 03/07/18 04/08/22 History Pain hyoscyamine sulfate 0.125 mg 0.125 mg sublingual Q4H PRN 03/07/18 04/08/22 History sublingual tablet (Levsin/SL) Abdominal Cramping pantoprazole 40 mg tablet,delayed 40 mg PO QAM 09/08/19 04/08/22 History release (Protonix) famotidine 40 mg tablet 20 mg PO BID 11/28/19 04/08/22 History lorazepam 2 mg/mL injection 0.5 mg buccal QID PRN Nausea 12/05/19 04/08/22 History solution (Ativan) hydrocortisone 10 mg tablet 10 - 15 mg PO BID 02/07/20 04/08/22 History ondansetron 4 mg disintegrating 4 mg translingual Q6H PRN Nausea 02/07/20 History tablet trimethobenzamide 300 mg capsule 300 mg PO Q6H PRN Nausea And 02/07/20 04/08/22 History Vomiting fexofenadine 180 mg tablet 180 mg PO PM 10/09/20 04/08/22 History gabapentin 250 mg/5 mL oral 300 mg PO TID 10/09/20 04/08/22 History solution fludrocortisone 0.1 mg tablet See Rx Instructions .Route .COMPLEX 12/12/20 04/08/22 History acetaminophen 500 mg tablet 1,000 mg PO Q6H PRN Pain 06/13/21 04/08/22 History (Tylenol Extra Strength) coenzyme Q10 100 mg capsule 0 mg PO PM 06/13/21 04/08/22 History (CoQ-10) multivitamin with minerals-folic 2 tab PO PM 06/13/21 04/08/22 History acid 200 mcg chewable tablet (Multivitamin Gummies) turmeric 400 mg capsule 400 mg PO PM 06/13/21 04/08/22 History empty container (Enema Misc Bottle) #72 ea 01/16/22 04/02/22 Rx hydromorphone 1 mg/mL oral liquid 2 mg PO Q4H PRN Pain 04/01/22 04/08/22 History cholecalciferol (vitamin D3) 25 50 mcg PO DAILY 04/07/22 04/08/22 History mcg (1,000 unit) capsule (Vitamin D3) duloxetine 60 mg capsule,delayed 60 mg PO DAILY 04/07/22 04/08/22 History release methocarbamol 750 mg tablet 750 mg PO Q8H PRN MUSCLE SPASMS 04/07/22 04/08/22 History Inpatient Medication List Dicyclomine HCl (Dicyclomine Hcl 10 Mg Cap) 20 mg PO QID PRN PRN Reason: Abdominal Pain Stop: 05/08/22 21:47 Last Admin: 04/10/22 04:22 Dose: 20 mg Documented By: Admin: 04/09/22 09:08 Dose: 20 mg Documented By: JENNIFER Docusate Sodium (Docusate Sodium Syrup 100 Mg/10 Ml Udc) 100 mg PO DAILY EMERALD Stop: 05/10/22 10:29 Last Admin: 04/10/22 10:59 Dose: 100 mg Documented By: KARRI Duloxetine HCl (Duloxetine Hcl 60 Mg Cap) 60 mg PO DAILY EMERALD Stop: 05/09/22 08:59 Last Admin: 04/10/22 09:17 Dose: 60 mg Documented By: Admin: 04/09/22 09:04 Dose: 60 mg Documented By: JENNIFER Famotidine (Famotidine 20 Mg Tab) 20 mg PO BID EMERALD Stop: 05/08/22 20:59 Last Admin: 04/10/22 09:17 Dose: 20 mg Documented By: Admin: 04/09/22 20:26 Dose: 20 mg Documented By: Admin: 04/09/22 09:05 Dose: 20 mg Documented By: Admin: 04/08/22 21:13 Dose: 20 mg Documented By: LEONARDA Fexofenadine HCl (Fexofenadine Hcl 180 Mg Tab) 180 mg PO PM EMERALD Stop: 05/08/22 20:59 Last Admin: 04/09/22 20:26 Dose: 180 mg Documented By: Admin: 04/08/22 21:13 Dose: 180 mg Documented By: LEONARDA Fludrocortisone Acetate (Fludrocortisone Acetate 0.1 Mg Tab) 0.2 mg PO QAM EMERALD Stop: 05/09/22 08:59 Last Admin: 04/10/22 09:18 Dose: 0.2 mg Documented By: Admin: 04/09/22 09:05 Dose: 0.2 mg Documented By: JENNIFER Fludrocortisone Acetate (Fludrocortisone Acetate 0.1 Mg Tab) 0.1 mg PO QPM EMERALD Stop: 05/08/22 20:59 Last Admin: 04/09/22 20:25 Dose: 0.1 mg Documented By: Admin: 04/08/22 22:25 Dose: 0.1 mg Documented By: LEONARDA Gabapentin (Gabapentin 250 Mg/5 Ml 470 Ml Btl) 300 mg PO TID EMERALD Stop: 05/08/22 20:59 Last Admin: 04/10/22 09:18 Dose: 300 mg Documented By: Admin: 04/09/22 20:29 Dose: 300 mg Documented By: Admin: 04/09/22 15:19 Dose: 300 mg Documented By: Admin: 04/08/22 21:16 Dose: 300 mg Documented By: Admin: 04/08/22 21:15 Dose: 300 mg Documented By: LEONARDA Hydromorphone HCl (Hydromorphone [employer] 30 Mg/30 Ml) 30 mg IV PRN PRN; Protocol PRN Reason: [employer] Pain Titration Stop: 04/22/22 14:37 Last Admin: 04/09/22 23:02 Dose: 30 mg Documented By: JANNET Co-signed By: PAULINE Admin: 04/09/22 12:55 Dose: 30 mg Documented By: JENNIFER Co-signed By: JEANNINE Admin: 04/09/22 07:27 Dose: 30 mg Documented By: JENNIFER Co-signed By: LEONARDA Admin: 04/08/22 15:39 Dose: 30 mg Documented By: FARZAD Co-signed By: MEGHNA Hydromorphone HCl (Hydromorphone Inj 1 Mg/Ml Syringe) 1 mg IV HS EMERALD Stop: 04/23/22 20:59 Last Admin: 04/09/22 22:31 Dose: 1 mg Documented By: JANNET Hydrocortisone Sodium (Succinate 75 mg/ Syringe) 1.5 mls @ 4 mls/min IV QID EMERALD Stop: 05/10/22 12:59 Last Admin: 04/10/22 13:54 Dose: 4 mls/min Documented By: ALBERTO Methocarbamol (Methocarbamol 750 Mg Tablet) 750 mg PO Q8H PRN PRN Reason: MUSCLE SPASMS Stop: 05/08/22 14:37 Last Admin: 04/10/22 04:22 Dose: 750 mg Documented By: Admin: 04/08/22 22:11 Dose: 750 mg Documented By: LEONARDA Midodrine (Midodrine Hcl 2.5 Mg Tab) 5 mg PO TID@0800,1200,1700 EMERALD Stop: 05/09/22 16:59 Last Admin: 04/10/22 11:09 Dose: 5 mg Documented By: Admin: 04/10/22 09:17 Dose: 5 mg Documented By: Admin: 04/09/22 17:37 Dose: 5 mg Documented By: ANGEL Ondansetron HCl (Ondansetron Inj 2 Mg/Ml 2 Ml Vial) 4 mg IV Q6H PRN PRN Reason: Nausea Stop: 05/08/22 14:37 Last Admin: 04/10/22 11:04 Dose: 4 mg Documented By: Admin: 04/10/22 04:18 Dose: 4 mg Documented By: Admin: 04/09/22 16:30 Dose: 4 mg Documented By: Admin: 04/09/22 14:26 Dose: 4 mg Documented By: Admin: 04/09/22 05:52 Dose: 4 mg Documented By: Admin: 04/08/22 22:08 Dose: 4 mg Documented By: Admin: 04/08/22 15:38 Dose: 4 mg Documented By: FARZAD Pantoprazole Sodium (Pantoprazole 40 Mg Tab) 40 mg PO QAM EMERALD Stop: 05/09/22 08:59 Last Admin: 04/10/22 09:17 Dose: 40 mg Documented By: Admin: 04/09/22 09:07 Dose: 40 mg Documented By: JENNIFER Vitamin D (Cholecalciferol 1,000 Units 25 Mcg Tab) 2,000 units PO DAILY EMERALD Stop: 05/09/22 08:59 Last Admin: 04/10/22 09:17 Dose: 2,000 units Documented By: Admin: 04/09/22 09:04 Dose: 2,000 units Documented By: JENNIFER Discontinued Medications Dicyclomine HCl (Dicyclomine Hcl 10 Mg Cap) 10 - 20 mg PO Q6H PRN PRN Reason: Abdominal Pain Stop: 05/08/22 14:37 Last Admin: 04/08/22 22:12 Dose: 20 mg Documented By: ELONARDA Fludrocortisone Acetate (Fludrocortisone Acetate 0.1 Mg Tab) 0.1 - 0.2 mg PO BID [facility] Stop: 05/08/22 20:59 Last Admin: 04/08/22 22:09 Dose: 0.1 mg Documented By: LEONARDA Gabapentin (Gabapentin 150 Mg/3 Ml Udp) 300 mg PO TID [facility] Stop: 05/08/22 20:59 Last Admin: 04/09/22 09:06 Dose: 300 mg Documented By: Admin: 04/08/22 21:27 Dose: 300 mg Documented By: LEONARDA Heparin Sodium (Porcine) (Heparin 100 Unit/Ml 5ml Flush) Confirm Administered Dose 5 ml .ROUTE .STK-MED ONE Stop: 04/08/22 14:34 Last Admin: 04/08/22 14:37 Dose: 5 ml Documented By: BROOKS Hydrocortisone (Hydrocortisone 10 Mg Tab) 10 - 15 mg PO BID [facility] Stop: 05/08/22 20:59 Last Admin: 04/08/22 22:10 Dose: 10 mg Documented By: LEONARDA Hydrocortisone (Hydrocortisone 10 Mg Tab) 15 mg PO QAM [facility] Stop: 05/09/22 08:59 Last Admin: 04/09/22 09:07 Dose: 15 mg Documented By: JENNIFER Hydrocortisone (Hydrocortisone 10 Mg Tab) 10 mg PO DAILY@1400 [facility] Stop: 05/09/22 13:59 Last Admin: 04/09/22 15:17 Dose: 10 mg Documented By: JENNIFER Hydromorphone HCl (Hydromorphone Inj 1 Mg/Ml Syringe) Confirm Administered Dose 1 mg .ROUTE .STK-MED ONE Stop: 04/08/22 14:32 Last Admin: 04/08/22 14:37 Dose: 1 mg Documented By: BROOKS Hydromorphone HCl (Hydromorphone Inj 1 Mg/Ml Syringe) 1 mg IV NOW STA Stop: 04/09/22 00:51 Last Admin: 04/09/22 01:19 Dose: 1 mg Documented By: LEONARDA Hydromorphone HCl (Hydromorphone Inj 1 Mg/Ml Syringe) Confirm Administered Dose 1 mg .ROUTE .STK-MED ONE Stop: 04/09/22 00:54 Last Admin: 04/09/22 01:02 Dose: Not Given Documented By: LEONARDA Hydromorphone HCl (Hydromorphone Inj 1 Mg/Ml Syringe) 1 mg IV NOW STA Stop: 04/09/22 12:55 Last Admin: 04/09/22 13:02 Dose: 1 mg Documented By: JENNIFER Lactated Ringer's (Lr) 1,000 mls @ 125 mls/hr IV .Q8H EMERALD Stop: 05/08/22 14:37 Last Admin: 04/10/22 07:57 Dose: 125 mls/hr Documented By: Infusion: 04/10/22 07:57 Dose: 125 mls/hr Documented By: Admin: 04/10/22 00:12 Dose: 125 mls/hr Documented By: Infusion: 04/10/22 00:12 Dose: 125 mls/hr Documented By: Admin: 04/09/22 16:13 Dose: 125 mls/hr Documented By: Infusion: 04/09/22 16:13 Dose: 125 mls/hr Documented By: Admin: 04/09/22 10:04 Dose: 125 mls/hr Documented By: Infusion: 04/09/22 10:03 Dose: 0 mls/hr Documented By: Admin: 04/09/22 02:06 Dose: 125 mls/hr Documented By: Infusion: 04/09/22 02:06 Dose: 125 mls/hr Documented By: Admin: 04/09/22 01:21 Dose: 125 mls/hr Documented By: Infusion: 04/08/22 23:48 Dose: 125 mls/hr Documented By: Admin: 04/08/22 15:48 Dose: 125 mls/hr Documented By: FARZAD Potassium Chloride (K Larry / Wtr) 10 meq in 100 mls @ 100 mls/hr IV Q1H EMERALD Stop: 04/08/22 21:59 Last Infusion: 04/09/22 03:59 Dose: 0 mls/hr Documented By: Admin: 04/08/22 23:31 Dose: 100 mls/hr Documented By: Infusion: 04/08/22 23:20 Dose: 100 mls/hr Documented By: Admin: 04/08/22 22:20 Dose: 100 mls/hr Documented By: Infusion: 04/08/22 22:04 Dose: 100 mls/hr Documented By: Admin: 04/08/22 21:04 Dose: 100 mls/hr Documented By: Infusion: 04/08/22 20:47 Dose: 100 mls/hr Documented By: Admin: 04/08/22 19:47 Dose: 100 mls/hr Documented By: Infusion: 04/08/22 19:44 Dose: 100 mls/hr Documented By: Admin: 04/08/22 18:44 Dose: 100 mls/hr Documented By: Infusion: 04/08/22 18:44 Dose: 100 mls/hr Documented By: Admin: 04/08/22 17:50 Dose: 100 mls/hr Documented By: FARZAD Lorazepam 0.5 mg/ Syringe 0.5 mls @ 2 mls/min IV QID PRN PRN Reason: nausea Stop: 05/08/22 16:00 Last Admin: 04/10/22 08:27 Dose: 2 mls/min Documented By: Admin: 04/09/22 21:04 Dose: 2 mls/min Documented By: Admin: 04/09/22 08:30 Dose: 2 mls/min Documented By: Admin: 04/09/22 01:20 Dose: 2 mls/min Documented By: Admin: 04/08/22 18:25 Dose: 2 mls/min Documented By: FARZAD Lactated Ringer's (Lr) 1,000 mls @ 999 mls/hr IV .Q1H1M ONE Stop: 04/08/22 19:59 Last Infusion: 04/08/22 22:31 Dose: 0 mls/hr Documented By: Admin: 04/08/22 19:51 Dose: 999 mls/hr Documented By: PAULINE Lactated Ringer's (Lr) 1,000 mls @ 999 mls/hr IV .Q1H1M ONE Stop: 04/09/22 01:50 Last Infusion: 04/09/22 02:20 Dose: 0 mls/hr Documented By: Admin: 04/09/22 01:21 Dose: 999 mls/hr Documented By: LEONARDA Amino Acids 1,934 ml/ (Nutrition (Parenteral)) 1,934 mls @ 80 mls/hr IV .Q24H EMERALD; Protocol Stop: 04/10/22 15:59 Last Admin: 04/09/22 17:37 Dose: 80 mls/hr Documented By: ANGEL Fat Emulsion-Soy/MCT/[place]/Fish Oil (Smoflipid 20% Iv Fat Emulsion) 50 gm in 250 mls @ 16.66 mls/hr IV .Q15H1M EMERALD; Protocol Stop: 04/10/22 15:00 Last Admin: 04/10/22 00:11 Dose: Not Given Documented By: JANNET Hydrocortisone Sodium (Succinate 50 mg/ Syringe) 1 mls @ 4 mls/min IV QID EMERALD Stop: 05/09/22 20:59 Last Admin: 04/10/22 09:17 Dose: 4 mls/min Documented By: Admin: 04/09/22 20:27 Dose: 4 mls/min Documented By: JANNET Lorazepam 2 mg/ Syringe 2 mls @ 2 mls/min IV NOW STA Stop: 04/09/22 22:32 Last Admin: 04/09/22 22:33 Dose: 2 mls/min Documented By: JANNET Lorazepam 2 mg/ Syringe 2 mls @ 2 mls/min IV NOW STA Stop: 04/09/22 22:46 Last Admin: 04/09/22 23:27 Dose: 2 mls/min Documented By: JANNET Maldonado (Patient's Height &/Or Weight Needed) 1 each N/A Q2H EMERALD Stop: 05/08/22 15:44 Last Admin: 04/08/22 21:05 Dose: 1 each Documented By: LEONARDA Maldonado (Lipids Rate Change: Pending Order) 1 each N/A DAILY@0030 [facility] Stop: 05/10/22 00:29 Last Admin: 04/10/22 00:12 Dose: Not Given Documented By: JANNET Maldonado (Stop Order: Smof Lipid) 1 each N/A DAILY@0800 [facility] Stop: 05/10/22 07:59 Last Admin: 04/10/22 07:57 Dose: Not Given Documented By: KARRI Miscellaneous (Lipids Rate Change: Pending Order) 1 each N/A DAILY@0730 [facility] Stop: 05/10/22 07:29 Last Admin: 04/10/22 06:36 Dose: Not Given Documented By: JANNET Propofol (Propofol Iv Emulsion 10 Mg/Ml 100 Ml Vial) Confirm Administered Dose 1,000 mg IV .reQwip-[employer] ONE Stop: 04/10/22 12:38 Last Admin: 04/10/22 13:53 Dose: 1,000 mg Documented By: ALBERTO Co-signed By: ROMAN Description This is a 21 electrode EEG with a single channel dedicated to limited EKG. The electrodes were placed in accordance with the International 10-20 system. Interpretation The patient is currently sedated deeply, and intubated. There is no distinctive posterior rhythm. Background activity is composed of very low amplitude, 2 to 3 Hz frontotemporal delta, intermixed with generalized, low amplitude theta waveforms, and high-frequency, low amplitude beta rhythm, likely secondary to benzodiazepine effect. Photic stimulations do not induce posterior driving responses. Hyperventilation is not attempted. Reactivity is not tested with painful stimuli. There is no sleep-related pattern. There are no electrographic seizures or epileptogenic discharges. Impression: This EEG, recorded in the patient's sedated state, is abnormal due to diffuse slowing, consistent with bihemispheric dysfunction, secondary to sedation. There is no electrographic seizures or epileptogenic discharge. Clinical Correlation Normal routine interictal EEG does not rule out seizure disorder definitively. Clinical correlation is recommended. If clinical suspicion is high, then continues/prolonged EEG recording might offer further information.
[2022-04-10 15:16] LABS: iSTAT Art Bld Gas pCO2 Correct 43 mmHg (35-46); iSTAT Art Bld Gas pH Corrected 7.449 (7.35-7.45); iSTAT Arterial Blood Gas HCO3 30 meg/L (19-24); iSTAT Arterial Blood Gas pCO2 43 mmHg (35-46); iSTAT Arterial Blood Gas pH 7.45 (7.35-7.45); iSTAT Arterial Blood Gas pO2 138 mmHg (80-95); iSTAT Arterial Blood Gas pO2 C 137; iSTAT Carbon Dioxide 31 mmol/L (24-31); iSTAT FiO2 30 %; iSTAT Hematocrit 28 % (37-47); iSTAT Hemoglobin 9.5 g/dl (12.0-16.0); iSTAT Potassium 3.3 mmol/L (3.3-5.0); iSTAT Site Art Line; iSTAT Sodium 142 mmol/L (135-144)
[2022-04-10] MEDS ORDERED: POTASSIUM CHLORIDE / WTR 10 MEQ/100 ML PLCT IV SCH (16:00)
[2022-04-10] MEDS ORDERED: MIDAZOLAM HCL 5 MG/ML VIAL IV ONE (16:24)
[2022-04-10] MEDS ORDERED: ATROPINE SULFATE 0.1 MG/ML 10ML SYR IV ONE (16:24)
[2022-04-10] MEDS ORDERED: EpINEphrine HCL INJ 1 MG/ML 1ML SYRINGE IV ONE (16:24)
[2022-04-10] MEDS ORDERED: ETOMIDATE 2 MG/ML 20 ML VIAL IV ONE (16:24)
[2022-04-10] MEDS ORDERED: ICU Protocol for HYPERglycemia SCH (16:30)
--- NOTE | 2022-04-10 16:37 | Discharge Summary ---
Date of Service April 10, 2022 Admission HPI Per Admitting Provider Patient is a very pleasant 32-year-old female well-known to me from prior admissions to presented to [facility] earlier today for IV fluidsshe routinely gets IV fluids as an outpatient given her poor ability to take enterally, and while there she had intense abdominal painwhich she notes has really been an ongoing thing for the last week and a half since discharge from [facility]. She does note while there she was having some degree of kinking or flipping of her ostomy and that would often initiate the painshe also has very severe abdominal pain at times even when she does not have the visual changes of her ostomy. The pain then become so intense that she passes outoften she notes that she does not have much of a warning. She is very pale when she passes out, her mom actually did chest compressions at home 1 time, and prior to my seeing her our visit was initiated because of the [facility] staff not being able to find a pulse and calling a CODE BLUE. By the time I arrived she was awake alert oriented talkative but in significant abdominal pain. She notes that she also has been struggling with nutritionwhile she was at [facility] they switched her from TPN as her main source of nutrition to tube feedsher goal is 95 mL an hour for (I believe 16 hours, might of been 18we will need to confirm). She notes that she is really only been able to maybe get in half of that. Has had multiple episodes of passing out at home like this, again as noted above her mom did CPR once. [facility] during her [facility] admissionnotes there is a small stump left in her pelvis which probably explains the findings on ER x-rays from last week. Has been to the ER 3 different times in the last week, given pain medicines, appearing to not have a situation of acuity, and discharged home. She notes she is really been struggling with pain in with nutrition. Admission Exam Per Admitting Provider In general she is awake alert oriented appears to be in significant pain distress. HEENT normocephalic atraumatic mucous membranes moist. Cardio is tachycardic no rubs murmurs or gallops. Lungs are clear to auscultation bilaterally no rales rhonchi or wheezes good effort. Abdomen is somewhat firm diffusely tender worse around her ostomythe firmness being much more of a chronic finding with her exam, it is hard to gauge rebound or rigidity. Extremities show no cyanosis clubbing or edema no calf tenderness. Skin shows no rashes, no pallor or icterusshe does have a bit of a blotchy discoloration around her neck and upper shoulders however. Neuro shows cranial nerves II through XII be grossly intact gross motor and sensory intact. Musculoskeletal shows no gross lesions/deformities. Mental status shows good recent and remote recall normal mood and affect fitting with the situation, good judgment and insight. Principal Diagnosis intractable abdominal pain, ?seizures, syncope Discharge Exam Constitutional NAD. Vitals WNL Respiratory CTA bilaterally. No rhonchi, wheezing, or crackles. Mechanically ventilated upon transfer. Cardiovascular RRR. No murmur noted. No LE edema. Gastrointestinal (Abdomen) Soft, tender to deep palpation in right lower quadrant around stoma site. No masses noted. Discharge Data Allergies Allergy/AdvReac Type Severity Reaction Status Date / Time adhesive Allergy Severe Redness of Verified 04/08/22 11:46 Skin morphine Allergy Severe Severe Verified 04/08/22 11:46 abdominal Pain, sphincter of oddi spasms amoxicillin Allergy Intermediate RASH Verified 04/08/22 11:46 calcium Allergy Intermediate SEE COMMENT Verified 04/08/22 11:46 [From VIACTIV Multi-Vitamin] cefazolin Allergy Intermediate rash Verified 04/08/22 11:46 Cephalosporins Allergy Intermediate HIVES Verified 04/08/22 11:46 clavulanic acid Allergy Intermediate HIVES Verified 04/08/22 11:46 folic acid Allergy Intermediate SEE COMMENT Verified 04/08/22 11:46 [From VIACTIV Multi-Vitamin] iron [From Venofer] Allergy Intermediate Muscle Pain Verified 04/08/22 11:46 multivitamin with minerals Allergy Intermediate SEE COMMENT Verified 04/08/22 11:46 [From VIACTIV Multi-Vitamin] Penicillins Allergy Intermediate HIVES Verified 04/08/22 11:46 prochlorperazine Allergy Intermediate HIVES Verified 04/08/22 11:46 promethazine Allergy Intermediate hives, Verified 04/08/22 11:46 throat swelling sulfamethoxazole Allergy Intermediate RASH Verified 04/08/22 11:46 sumatriptan Allergy Intermediate RASH Verified 04/08/22 11:46 trimethoprim Allergy Intermediate RASH Verified 04/08/22 11:46 metoclopramide AdvReac Severe anxiety/ Verified 04/08/22 11:46 jittery diphenhydramine AdvReac Intermediate Tachycardia, Verified 04/08/22 11:46 Severe Anxiety WITH IV ONLY erythromycin base AdvReac Intermediate GI SYMPTOMS Verified 04/08/22 11:46 citalopram [From Celexa] AdvReac Unknown CAN'T Verified 04/08/22 11:46 REMEMBER Consultations 04/09/22 23:16 Consult Neurology Routine Ordered Studies 04/10/22 09:50 CT for pulmonary embolism PE [CT angio chest PE protocol] Routine 04/10/22 09:52 CT Abd and Pelvis [CT abd pelvis IV con only] Routine Chest X-Ray 04/10/22 12:47 SINGLE VIEW CHEST CLINICAL HISTORY: Intubation. FINDINGS: An AP, portable, semierect chest radiograph is compared to study dated 06/18/2021. A right subclavian central venous infusion port is unchanged in position. An endotracheal tube has been placed. The tip projects approximately 4.5 cm above the waylon. An enteric tube has been placed. The tip projects just below the diaphragm over the proximal stomach. The side holes project above the diaphragm. The cardiomediastinal silhouette is unremarkable. There is minimal elevation of the right hemidiaphragm. The lungs and pleural spaces are clear. No pneumothorax is seen. The bony thorax is grossly intact. There is mild spinal scoliosis. IMPRESSION: 1. Endotracheal and enteric tubes have been placed as above. The enteric tube should be advanced. 2. The lung are clear. ACT 112: Negative or not required by law. Electronically signed by: Kirk Burgos M.D. 04/10/2022 1:09 PM Hospital Course (1) Syncope: Pt is a 32 yo female with a complicated surgical abdominal hx consisting of bowel resection, ileostomy, and hysterectomy w/ recent colectomy in February 2022, SMA syndrome, adrenal insufficiency, and gastroparesis presenting [facility] to receive fluid/nutrition. While in the [facility], she was found to be pulseless and a code blue was called. The pt responded quickly and was conscious w/ palpable pulses. Syncope, ?seizures - Initially believed to be vasovagal due to pain/nausea but more recently concern for seizures due to unresponsiveness/long duration of episode (~12 min) and need for intubation due to lack of spontaneous respirations - EEG normal w/o electrographic evidence of seizures but not done during episode - pt was started on LR at 125 mL/hr and a [employer] pump for pain control (0.25mg q10 min) - pt had 3 more episodes very similar to previous during the day 04/09 - however, pt did take longer to respond to pain with third episode - pt was given extra 1 mg dilaudid after 2nd episode to help control pain; [employer] was also increased to 0.3 mg q10 min - pt given extra dose of 4 mg zofran after 3rd episode d/t nausea - Overnight, pt had two more episodes- started on baseline [employer] dose of 0.5 mg hourly in addition to PRN - 04/10; pt with 2 more episodes lasting longer each time and now with significant seizure like activity; pt intubated for airway stabilization and transferred to ICU -- ICU team and Neurology recommending continuous EEG monitoring -- plan to transfer to [facility] ICU Abdominal pain - unsure of exact cause of increased abdominal pain; ostomy dysfunction vs. adhesions vs ? - pt accepted for transfer to [facility] where her surgical team is, awaiting bed - as there seems to be no acute abdominal process going on, CT can wait until transfer to ensure continuity; if clinical status changes, CT scan here may become necessary - chronic pain management is difficult as opioids may worsen motility issue but her pain is obviously significant Malnutrition - Has been switched to tube feeds by [facility]; was not really able to tolerate them - resume TPN while at [facility] Hypokalemia - 3.1 upon admission, repleted - today, 3.7 (2) Abdominal pain: (3) Malnutrition: (4) Status post ileostomy: (5) Hypokalemia: Plan FEN: TPN DVT ppx: ambulation prior to intubation Code: full Dispo: transfer to [facility] ICU Total Time Total Time Spent Total Time Spent (In Minutes): as per attending attestation Discharge Plan Discharge Items Patient Disposition: Transfer Acute Care Hospital Reason For Visit: INTRACTABLE ABDOMINAL PAIN Discharge Diagnosis: intractable abdominal pain, syncope, seizures Activity: Per Instructions section Non-emergency contact: Primary Care Provider, Specialist and Submarine Element Coordinator Call non-emergency contact if: your symptoms worsen and your pain is not controlled Follow-up/Referrals: Mariah Addison DO [Primary Care Provider] - Diet: Other - See Diet Comment Diet Comment: TPN Addtl Attending Provider Instructions: Pt is a 32 yo female with a complicated surgical abdominal hx consisting of bowel resection, ileostomy, and hysterectomy w/ recent colectomy in February 2022, SMA syndrome, adrenal insufficiency, and gastroparesis presenting to the [facility] to receive fluid/nutrition. While in the [facility], she was found to be pulseless and a code blue was called. The pt responded quickly and was conscious w/ palpable pulses. Syncope, ?seizures - Initially believed to be vasovagal due to pain/nausea but more recently concern for seizures due to unresponsiveness/long duration of episode (~12 min) and need for intubation due to lack of spontaneous respirations - EEG normal w/o electrographic evidence of seizures but not done during episode - pt was started on LR at 125 mL/hr and a [employer] pump for pain control (0.25mg q10 min) - pt had 3 more episodes very similar to previous during the day 04/09 - however, pt did take longer to respond to pain with third episode - pt was given extra 1 mg dilaudid after 2nd episode to help control pain; [employer] was also increased to 0.3 mg q10 min - pt given extra dose of 4 mg zofran after 3rd episode d/t nausea - Overnight, pt had two more episodes- started on baseline [employer] dose of 0.5 mg hourly in addition to PRN - 04/10; pt with 2 more episodes lasting longer each time and now with significant seizure like activity; pt intubated for airway stabilization and transferred to ICU -- ICU team and Neurology recommending continuous EEG monitoring -- plan to transfer to [facility] ICU Abdominal pain - unsure of exact cause of increased abdominal pain; ostomy dysfunction vs. adhesions vs ? - pt accepted for transfer to [facility] where her surgical team is, awaiting bed - as there seems to be no acute abdominal process going on, CT can wait until transfer to ensure continuity; if clinical status changes, CT scan here may become necessary - chronic pain management is difficult as opioids may worsen motility issue but her pain is obviously significant Malnutrition - Has been switched to tube feeds by [facility]; was not really able to tolerate them - resume TPN while at [facility] Hypokalemia - 3.1 upon admission, repleted - today, 3.7 Plan FEN: LR 125 mL/hr, TPN DVT ppx: ambulation Code: full Dispo: accepted to [facility], awaiting bed Pending Studies at Discharge: No Stand-Alone Forms: My [facility] Skilled Items Patient informed of condition?: Yes DNR: No Discharge Level of Care: Other Communicable Disease: No Discharge Prognosis: Stable Lines: Peripheral IV Urinary Catheter: Yes Medications and DC Order Prescriptions: Continued famotidine 40 mg tablet 20 mg PO BID Rx Instructions: 1/2 tablet dose ondansetron 4 mg tablet,disintegrating 4 mg translingual Q6H PRN (Reason: Nausea) Rx Instructions: can also have iv hydrocortisone 10 mg tablet 10 - 15 mg PO BID Rx Instructions: TAKE 15 MG EVERY MORNING AND 10 MG EVERY AFTERNOON trimethobenzamide 300 mg Capsule 300 mg PO Q6H PRN (Reason: Nausea And Vomiting) hyoscyamine sulfate [Levsin/SL] 0.125 mg Tablet, Sublingual 0.125 mg SUBLINGUAL Q4H PRN (Reason: Abdominal Cramping) dicyclomine 10 mg Capsule 10 - 20 mg PO Q6H PRN (Reason: Abdominal Pain) pantoprazole [Protonix] 40 mg tablet,delayed release (DR/EC) 40 mg PO QAM lorazepam [Ativan] 2 mg/mL Solution 0.5 mg buccal QID PRN (Reason: Nausea) Rx Instructions: DIRECTED 0.5 MG (0.25 ML) gabapentin 250 mg/5 mL solution 300 mg PO TID Rx Instructions: 6 ml po TID fexofenadine 180 mg Tablet 180 mg PO PM hydromorphone 1 mg/mL Liquid 2 mg PO Q4H PRN (Reason: Pain) methocarbamol 750 mg Tablet 750 mg PO Q8H PRN (Reason: MUSCLE SPASMS) cholecalciferol (vitamin D3) [Vitamin D3] 25 mcg (1,000 unit) Capsule 50 mcg PO DAILY duloxetine 60 mg capsule,delayed release(DR/EC) 60 mg PO DAILY fludrocortisone 0.1 mg tablet See Rx Instructions .ROUTE .COMPLEX Rx Instructions: 0.1 mg orally ;Take 0.2mg(2 tab)in the AMTake 0.1mg(1 tab) in the PM acetaminophen [Tylenol Extra Strength] 500 mg Tablet 1,000 mg PO Q6H PRN (Reason: Pain) coenzyme Q10 [CoQ-10] 100 mg Capsule 0 mg PO PM Rx Instructions: Takes 1 tab daily UNKNOWN STRENGTH Multivitamin Gummies 200 mcg Tablet,Chewable 2 tab PO PM turmeric 400 mg Capsule 400 mg PO PM Rx Instructions: Takces 1 cap daily (DME) Enema Bottle Bottle See Rx Instructions .Route Qty: 72 0RF Rx Instructions: As directed Discharge Orders: Discharge Order (Routine); Ordered 04/10/22 Ordered By: Og Morgan Admission Data Admit Date/Time: 04/08/22 14:24 Attending Provider: Vicky Drew Admit Provider: Ramses Layne Primary Care Provider: Mariah Addison Other Providers: Elio Rothman ; Dioni Kumar ; Christine Victor ; Mendez Adler ; Campos Oliveira Other Interventions: Discharge Summary Assessment (RN) Last Done: 04/10/22 15:00 Supervising Physician Co-Signing Physician Notes I personally examined the patient and verified all solorzano points of history and exam, discussed case, and agree with decision making with with the following additions/exceptions: S-patient was seen on 2 occasions in the day of discharge. Initially in the morning, she was reporting decent pain control in the abdomen, no chest pain or shortness of breath, mild lightheadedness. We discussed her multiple syncopal episodes of the last 2 days. On some of them, she does get a slight warning of lightheadedness and then passes out for a couple of minutes with some convulsive like activity, but upon awakening, is alert awake and oriented x3, able to converse normally. She has not had any bradycardia or arrhythmias on telemetry with these episodes. Later in the morning, patient had another episode and I was paged by the nurse to come to the bedside and a code jaxon was called. When I arrived, she was having mostly generalized tonic activity and was unresponsive, tachypneic, and had a purpleish lacy rash over her head neck. She was turned on her left side and had oxygen applied. Her vital signs were stable except with sinus tachycardia initially. At the time I had arrived, the nurse at the bedside reported the patient had been having the seizure-like activity from was 10 minutes. She was then given lorazepam 2 mg IV x1 and within 1 minute, her seizure activity stopped. She then became apneic but had a pulse. The [id number] was used to bag her approximately 3 times and then she woke up and was awake and crying. She did appear somewhat confused and was calling out for her mother. Vital signs again normal at this time except some sinus tachycardia. I left the room to call the neurologist and a couple of minutes later was informed of the patient once again became apneic and was being bagged for respiratory support. I came back to the room and while the patient did have a palpable carotid pulse, she did not have any spontaneous respirations. She did have breath sounds bilaterally with auscultation while bagging. The purplish lacy rash on face and neck did resolve after her seizure resolved. I called for the veneer drier to come to the bedside and intubate the patient for ventilatory support. She is then transferred to the intensive care unit. After discussion with the veneer drier and neurologist, it was decided that she is in need of continuous EEG monitoring to truly assess for seizure as this episode did not seem like a syncopal episode as it lasted approximately 12 minutes and she became apneic afterwards. The senior resident Dr. Lomas did contact [facility] who did not have an ICU bed available but was excepting of her. He then contacted [facility] who also accepted her to their ICU but did not have a bed available immediately. Fortunately, after short time later, [facility] clinic did call back and had a bed available. The patient was transferred by [facility] to [facility]. A/P-this patient is a very complex 32-year-old female with a long history of intestinal dysmotility, previous surgeries for SMA syndrome, partial colectomy with ileostomy followed by total colectomy, G-tube and GJ tube placement, port placement. She has had numerous issues with chronic pain regarding her abdomen and subsequent jejunal intussusception issues. She is also on chronic TPN and tube feeds for many years. Also with POTS, adrenal insufficiency. Admitted for seemingly syncopal episodes followed by numerous brief syncopal episodes with convulsive activity followed by a prolonged episode of syncope versus generalized seizure x12 minutes, resulting in apnea requiring urgent i ntubation and ventilatory support. Critical condition at this time. Patient is being transferred to ICU at [facility] for continuous EEG monitoring, further follow-up with her colorectal surgical team for her ongoing chronic pain at her ostomy site. Resident Activity Tracking Resident Involvement: Resident Care Provided Care Provided: [facility] Medicine
[2022-04-10] MEDS ORDERED: ICU ELECTROLYTE REPLACEMENT PROTOCOL SCH (18:00)
--- NOTE | 2022-04-14 14:20 | Billing Data ---
Date of Service April 10, 2022 Coding Level of Care Code D/C DAY MANAGEMENT >30 MINS
== END 2022-04-10 16:25 | disposition short-term general hospital (02) | DRG 312 ==
LOC: 3E 13:30 → SUATTDRO 14:24 → 4W 15:20 → 1E 19:07

== ENCOUNTER 2022-05-05 04:06 | Inpatient (IN) ==
[2022-05-05] MEDS ORDERED: HYDROmorphone INJ 0.5 MG/0.5 ML SYR IV STA ×2 (04:27→20:06)
[2022-05-05] MEDS ORDERED: SODIUM CHLORIDE 0.9% 1000ML 500 ML IV ONE (04:29)
[2022-05-05] MEDS ORDERED: SODIUM CHLORIDE 0.9% 1000ML 1,000 ML IV SCH ×2 (04:30→07:30)
--- NOTE | 2022-05-05 04:41 | Emergency Department Note ---
History of Present Illness General Chief complaint: Syncope Time Seen by Provider: 05/05/22 04:09 History of Present Illness Maximum Pain Intensity: 10 This is a 32-year-old female that presents to the emergency department via EMS accompanied by mother with complaints of "seizure-like activity, abdominal pain". Patient has a complex past medical history with recent abdominal surgery in [place] at the [facility]. Patient also was recently admitted in March and subsequently transferred to the [facility] for further evaluation and management. Mother provides much of the history and notes that that was for further assessment for her seizure-like activity. Mother notes that EEG assessment while at the [facility] did not reveal any abnormality. She has been subsequently discharged but has had progressively worsening abdominal discomfort near the ostomy site and describes abdominal pain as a twisting discomfort. She also has had increased gas production within the ostomy collection bag. In addition, mother notes that she has been experiencing these episodes of unresponsiveness where she will have seizure-like activity that are increasing in severity and duration. Mother notes that these seem to be directly correlated with her level of discomfort and when her abdominal pain reaches a high enough level the seizure-like activity occurs. Mother does note that she had received oral Dilaudid around 2 AM this morning as prescribed. No fevers or infectious symptoms. Home Medications Medication Instructions Recorded Confirmed Type dicyclomine 10 mg capsule 10 - 20 mg PO Q6H PRN Abdominal 03/07/18 05/05/22 History Pain hyoscyamine sulfate 0.125 mg 0.125 mg sublingual Q4H PRN 03/07/18 05/05/22 History sublingual tablet (Levsin/SL) Abdominal Cramping pantoprazole 40 mg tablet,delayed 40 mg PO QAM 09/08/19 05/05/22 History release (Protonix) famotidine 40 mg tablet 20 mg PO BID 11/28/19 05/05/22 History lorazepam 2 mg/mL injection 0.5 mg buccal QID PRN Nausea 12/05/19 05/05/22 History solution (Ativan) hydrocortisone 10 mg tablet 10 - 15 mg PO BID 02/07/20 05/05/22 History ondansetron 4 mg disintegrating 4 mg translingual Q6H PRN Nausea 02/07/20 05/05/22 History tablet trimethobenzamide 300 mg capsule 300 mg PO Q6H PRN Nausea And 02/07/20 05/02/22 History Vomiting fexofenadine 180 mg tablet 180 mg PO PM 10/09/20 05/05/22 History gabapentin 250 mg/5 mL oral 300 mg PO TID 10/09/20 05/05/22 History solution fludrocortisone 0.1 mg tablet See Rx Instructions .Route .COMPLEX 12/12/20 05/05/22 History acetaminophen 500 mg tablet 1,000 mg PO Q6H PRN Pain 06/13/21 05/05/22 History (Tylenol Extra Strength) coenzyme Q10 100 mg capsule 0 mg PO PM 06/13/21 05/05/22 History (CoQ-10) multivitamin with minerals-folic 2 tab PO PM 06/13/21 05/05/22 History acid 200 mcg chewable tablet (Multivitamin Gummies) turmeric 400 mg capsule 400 mg PO PM 06/13/21 05/02/22 History empty container (Enema Misc Bottle) #72 ea 01/16/22 04/02/22 Rx hydromorphone 1 mg/mL oral liquid 2 mg PO Q4H PRN Pain 04/01/22 05/05/22 History cholecalciferol (vitamin D3) 25 50 mcg PO DAILY 04/07/22 05/05/22 History mcg (1,000 unit) capsule (Vitamin D3) duloxetine 60 mg capsule,delayed 60 mg PO DAILY 04/07/22 05/05/22 History release methocarbamol 750 mg tablet 750 mg PO Q8H PRN MUSCLE SPASMS 04/07/22 05/05/22 History Allergies Allergy/AdvReac Type Severity Reaction Status Date / Time adhesive Allergy Severe Redness of Verified 05/02/22 13:45 Skin morphine Allergy Severe Severe Verified 05/02/22 13:45 abdominal Pain, sphincter of oddi spasms amoxicillin Allergy Intermediate RASH Verified 05/02/22 13:45 calcium Allergy Intermediate SEE COMMENT Verified 05/02/22 13:45 [From VIACTIV Multi-Vitamin] cefazolin Allergy Intermediate rash Verified 05/02/22 13:45 Cephalosporins Allergy Intermediate HIVES Verified 05/02/22 13:45 clavulanic acid Allergy Intermediate HIVES Verified 05/02/22 13:45 folic acid Allergy Intermediate SEE COMMENT Verified 05/02/22 13:45 [From VIACTIV Multi-Vitamin] iron [From Venofer] Allergy Intermediate Muscle Pain Verified 05/02/22 13:45 multivitamin with minerals Allergy Intermediate SEE COMMENT Verified 05/02/22 13:45 [From VIACTIV Multi-Vitamin] Penicillins Allergy Intermediate HIVES Verified 05/02/22 13:45 prochlorperazine Allergy Intermediate HIVES Verified 05/02/22 13:45 promethazine Allergy Intermediate hives, Verified 05/02/22 13:45 throat swelling sulfamethoxazole Allergy Intermediate RASH Verified 05/02/22 13:45 sumatriptan Allergy Intermediate RASH Verified 05/02/22 13:45 trimethoprim Allergy Intermediate RASH Verified 05/02/22 13:45 metoclopramide AdvReac Severe anxiety/ Verified 05/02/22 13:45 jittery diphenhydramine AdvReac Intermediate Tachycardia, Verified 05/02/22 13:45 Severe Anxiety WITH IV ONLY erythromycin base AdvReac Intermediate GI SYMPTOMS Verified 05/02/22 13:45 citalopram [From Celexa] AdvReac Unknown CAN'T Verified 05/02/22 13:45 REMEMBER Past Med/Surg History Medical History Asthma Chronic migraine Colitis Diversion colitis Elevated lipase Endometriosis has had 3 surgeries for this. Last surgery [address] Hemorrhagic cystitis Hypotension Intussusception Pancreatitis PICC (peripherally inserted central catheter) in place TPN SMAS (superior mesenteric artery syndrome) History of SMAS Sphincter of Oddi dysfunction DECREASED GI MOTILITY Transaminitis Uses feeding tube gastroparesis and decreased GI motility can not tolerate feeding and uses TPN UTI (urinary tract infection) Surgical History H/O adenoidectomy H/O laparoscopy H/O lumpectomy right breast 2011 History of appendectomy History of bowel resection Part of duodenum removed due to necrosis; done at [facility] 2019 History of hysterectomy 09/27/19 History of removal of Port-a-Cath 10/13/[address] Geiger, [facility], due to bacteremia/sepsis. History of vascular access device 2018 Hx of colonoscopy during procedure perforated small bowel 10/27/2019 at [facility], subsequent repair of duodenal area. 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 current occupational status: unemployed current occupation: completed 4-year degree at [employer] How many Children do You have: 0 Other Information That Helps Us Care for You: No Feels Safe at Home: Yes Safety Concerns: Feels Safe At This Time Sexual Activity Comment: not sexually active Assistive Devices: Oxygen - Continuous Review of Systems A total of 10 systems reviewed and were otherwise negative Physical Exam Vital Signs Vital Signs - 24 hr 05/05/22 04:10 05/05/22 05:30 05/05/22 05:39 Temperature 36.7 C Temperature Source Axillary Pulse Rate 91 H Pulse Rate [Apical] 73 Pulse Rhythm Regular Pulse Rhythm [Apical] Regular Pulse Strength Normal Pulse Strength [Apical] Normal Respiratory Rate 22 20 Respiratory Effort / Characteristics Non-Labored Spontaneous Non-Labored Spontaneous Respiratory Depth Normal Normal Respiratory Pattern Regular Regular Blood Pressure 113/81 Blood Pressure [Right Arm] 112/86 Blood Pressure Mean 91 Blood Pressure Mean [Right Arm] 94 Blood Pressure Position Lying Blood Pressure Position [Right Arm] Lying Pulse Oximetry 100 99 Oxygen Delivery Method Room Air Non-rebreather Non-rebreather Oxygen Flow Rate 10 10 Sepsis Recent Fever Within 48 Hours No Sepsis New/Unexplained Change in Mental Status No Sepsis Action Taken by Nursing No Action Required 05/05/22 05:39 05/05/22 05:05 Temperature Temperature Source Pulse Rate 73 Pulse Rate [Apical] Pulse Rhythm Regular Pulse Rhythm [Apical] Pulse Strength Pulse Strength [Apical] Respiratory Rate 20 Respiratory Effort / Characteristics Respiratory Depth Respiratory Pattern Blood Pressure Blood Pressure [Right Arm] Blood Pressure Mean Blood Pressure Mean [Right Arm] Blood Pressure Position Blood Pressure Position [Right Arm] Pulse Oximetry 99 85 L Oxygen Delivery Method Non-rebreather Non-rebreather Oxygen Flow Rate 10 15 Sepsis Recent Fever Within 48 Hours Sepsis New/Unexplained Change in Mental Status Sepsis Action Taken by Nursing VITAL SIGNS - Vital signs and nursing notes were reviewed. Stable and afebrile. GENERAL -32-year-old female appearing her stated age who is in no acute distress but appears to be in pain, is holding the abdomen with her hands. Communicates well with provider and answers questions appropriately. SKIN - Without rashes. No meningeal or petechial rash. HEAD - NC/AT. EYES - PERRL with EOMI bilaterally. Sclera anicteric. EARS - No deformities of external structures noted on gross examination bilaterally. NOSE - Midline and without cyanosis. No epistaxis or purulent drainage noted. Septum midline without deviation or septal hematoma noted. MOUTH/OROPHARYNX - Without perioral cyanosis. NECK - No nuchal rigidity. LUNGS - Chest wall symmetric without accessory muscle use, intercostals retractions, or central cyanosis. Normal vesicular breath sounds CTA B/L. No wheezes, rales, or rhonchi appreciated. CARDIAC - RRR with S1/S2. No murmur, rubs, or gallops appreciated. ABDOMEN - Abdominal contour normal without pulsations or visible masses. Bowel sounds normoactive. There is generalized abdominal tenderness without guarding or rigidity EXTREMITIES - No clubbing or peripheral cyanosis. +5/5 strength noted in UE/LE bilaterally. NEUROLOGIC - Cranial nerves II through XII grossly intact. PSYCH - A&O, and cooperates fully with examiner. Pt is very pleasant and interacts well with examiner. Course Administered Medications Acetaminophen (Acetaminophen 500 Mg Tab) 1,000 mg PO Q6H PRN PRN Reason: Pain Stop: 06/04/22 09:42 Last Admin: 05/05/22 18:07 Dose: 1,000 mg Documented By: RUBA Dicyclomine HCl (Dicyclomine Hcl 10 Mg Cap) 20 mg PO Q6H PRN PRN Reason: Abdominal Pain Stop: 06/04/22 09:42 Last Admin: 05/05/22 10:54 Dose: 20 mg Documented By: RUBA Duloxetine HCl (Duloxetine Hcl 60 Mg Cap) 60 mg PO DAILY [facility] Stop: 06/04/22 09:42 Last Admin: 05/05/22 10:55 Dose: 60 mg Documented By: RUBA Famotidine (Famotidine 20 Mg Tab) 20 mg PO BID [facility] Stop: 06/04/22 09:42 Last Admin: 05/05/22 10:55 Dose: 20 mg Documented By: RUBA Fludrocortisone Acetate (Fludrocortisone Acetate 0.1 Mg Tab) 0.2 mg PO QAM [facility] Stop: 06/04/22 09:42 Last Admin: 05/05/22 10:55 Dose: 0.2 mg Documented By: RUBA Gabapentin (Gabapentin 250 Mg/5 Ml 470 Ml Btl) 300 mg PO TID [facility] Stop: 06/04/22 09:42 Last Admin: 05/05/22 13:20 Dose: 300 mg Documented By: Admin: 05/05/22 10:53 Dose: 300 mg Documented By: RUBA Hydrocortisone (Hydrocortisone 10 Mg Tab) 15 mg PO QAM [facility] Stop: 06/04/22 09:42 Last Admin: 05/05/22 10:56 Dose: 15 mg Documented By: RUBA Hydrocortisone (Hydrocortisone 10 Mg Tab) 10 mg PO DAILY@1400 [facility] Stop: 06/04/22 13:59 Last Admin: 05/05/22 13:21 Dose: 10 mg Documented By: RUBA Hydromorphone HCl (Hydromorphone Mine Motor Engineer 30 Mg/30 Ml) 30 mg IV PRN PRN; Protocol PRN Reason: DIE MAKER BENCH STAMPING Pain Titration Stop: 05/19/22 12:18 Last Admin: 05/05/22 13:06 Dose: 30 mg Documented By: RUBA Co-signed By: FARZAD Potassium Chloride 20 meq/ (Lactated Ringer's) 1,010 mls @ 80 mls/hr IV .[id number] [facility] Stop: 05/06/22 11:30 Last Admin: 05/05/22 13:13 Dose: 80 mls/hr Documented By: RUBA Lorazepam 1 mg/ Syringe 1 mls @ 2 mls/min IV Q8H PRN PRN Reason: N/v uncontrolled w/ zofran Stop: 06/04/22 09:42 Last Admin: 05/05/22 10:11 Dose: 2 mls/min Documented By: RUBA Sodium Chloride (Nss 1000ml) 1,000 mls @ 15 mls/hr IV .Q24H [facility] Stop: 05/19/22 12:19 Last Admin: 05/05/22 13:20 Dose: 15 mls/hr Documented By: RUBA Methocarbamol (Methocarbamol 750 Mg Tablet) 750 mg PO Q8H PRN PRN Reason: MUSCLE SPASMS Stop: 06/04/22 09:42 Last Admin: 05/05/22 10:54 Dose: 750 mg Documented By: RUBA Pantoprazole Sodium (Pantoprazole 40 Mg Tab) 40 mg PO QAM [facility]ERALD Stop: 06/04/22 09:42 Last Admin: 05/05/22 10:57 Dose: 40 mg Documented By: RUBA Discontinued Medications Hydromorphone HCl (Hydromorphone Inj 0.5 Mg/0.5 Ml Syr) 0.5 mg IV NOW STA Stop: 05/05/22 04:28 Last Admin: 05/05/22 04:40 Dose: 0.5 mg Documented By: ENRRIQUE Hydromorphone HCl (Hydromorphone Inj 0.5 Mg/0.5 Ml Syr) 0.25 mg IV Q60M PRN PRN Reason: Pain Stop: 05/19/22 04:49 Last Admin: 05/05/22 05:19 Dose: 0.25 mg Documented By: SORAYA Hydromorphone HCl (Hydromorphone Inj 0.5 Mg/0.5 Ml Syr) 0.5 mg IV Q30M PRN PRN Reason: pain Stop: 05/19/22 05:44 Last Admin: 05/05/22 09:42 Dose: 0.5 mg Documented By: Admin: 05/05/22 07:17 Dose: 0.5 mg Documented By: Admin: 05/05/22 06:02 Dose: 0.5 mg Documented By: SORAYA Hydromorphone HCl (Hydromorphone Inj 0.5 Mg/0.5 Ml Syr) 0.5 mg IV Q1H PRN PRN Reason: Pain Stop: 05/19/22 09:42 Last Admin: 05/05/22 12:03 Dose: 0.5 mg Documented By: Admin: 05/05/22 10:48 Dose: 0.5 mg Documented By: RUBA Hydromorphone HCl (Hydromorphone Inj 1 Mg/Ml Syringe) 1 mg IV NOW STA Stop: 05/05/22 12:21 Last Admin: 05/05/22 13:12 Dose: 1 mg Documented By: RUBA Sodium Chloride (Nss 1000ml) 500 mls @ 500 mls/hr IV .Q1H ONE Stop: 05/05/22 05:28 Last Infusion: 05/05/22 05:43 Dose: 0 mls/hr Documented By: Admin: 05/05/22 04:40 Dose: 500 mls/hr Documented By: ENRRIQUE Sodium Chloride (Nss 1000ml) 1,000 mls @ 125 mls/hr IV .Q8H EMERALD Stop: 05/06/22 07:29 Last Infusion: 05/05/22 20:18 Dose: 0 mls/hr Documented By: Admin: 05/05/22 08:42 Dose: 125 mls/hr Documented By: MAXX Sodium Chloride (Nss 1000ml) 1,000 mls @ 999 mls/hr IV .Q1H1M ONE Stop: 05/05/22 08:26 Last Infusion: 05/05/22 08:39 Dose: 0 mls/hr Documented By: Admin: 05/05/22 07:38 Dose: 999 mls/hr Documented By: MAXX Lorazepam (Lorazepam 2 Mg/1 Ml Vial (Emergency Use)) Confirm Administered Dose 2 mg .ROUTE .STK-MED ONE Stop: 05/05/22 17:58 Last Admin: 05/05/22 18:07 Dose: 2 mg Documented By: RUBA Ondansetron HCl (Ondansetron Inj 2 Mg/Ml 2 Ml Vial) 4 mg IV NOW STA Stop: 05/05/22 09:44 Last Admin: 05/05/22 10:50 Dose: 4 mg Documented By: RUBA Medical Decision Making Laboratory Data Result diagrams: 05/05/22 04:33 05/05/22 04:33 Lab Results 05/05/22 05/05/22 05/05/22 Range/Units 04:33 04:33 04:33 WBC 6.95 (4.8-10.8) K/ul RBC 3.29 L (3.93-5.22) M/uL Hgb 9.4 L (12.0-16.0) g/dl Hct 29.2 L (34.1-44.9) % MCV 88.8 (80.0-100.0) fL MCH 28.6 (25.0-34.0) pg MCHC 32.2 (32.0-36.0) g/dL RDW Std Deviation 39.8 (36.4-46.3) fL RDW Coeff of Tim 12.2 (11.5-14.5) % Plt Count 445 H (130-400) K/uL MPV 10.5 (9.4-12.3) fL Immature Gran % (Auto) 0.3 % Neut % (Auto) 60.2 % Lymph % (Auto) 26.6 % Coffee % (Auto) 11.1 % Eos % (Auto) 1.2 % Baso % (Auto) 0.6 % Neut # (Auto) 4.19 (1.4-6.5) K/uL Lymph # (Auto) 1.85 (1.2-3.4) K/uL Coffee # (Auto) 0.77 (0.24-0.82) K/uL Eos # (Auto) 0.08 (0-0.50) K/uL Baso # (Auto) 0.04 (0-0.2) K/uL Immature Gran # (Auto) 0.02 (0.00-0.02) K/uL Sodium (136-145) mmol/L Potassium (3.5-5.1) mmol/L Chloride (98-107) mmol/L Carbon Dioxide (21-32) mmol/L Anion Gap (3-11) BUN (6-23) mg/dl Creatinine (0.6-1.2) mg/dl Est Cr Clr Drug Dosing ml/min Est GFR ( Amer) ml/min Est GFR (Non-Af Amer) ml/min BUN/Creatinine Ratio (10-20) Glucose (70-99(Fasting)) mg/dl Lactate 2.4 H* (0.4-2.0) mmol/L Calcium (8.5-10.1) mg/dl Magnesium (1.7-2.4) mg/dl Total Bilirubin (0.2-1.0) mg/dl AST (13-39) U/L ALT (7-52) U/L Alkaline Phosphatase (34-104) U/L Total Protein (6.0-8.3) gm/dl Albumin (3.4-5.0) gm/dl Globulin (2.5-4.0) gm/dl Albumin/Globulin Ratio (0.9-2) Lipase (11-82) U/L Procalcitonin < 0.05 (0-0.5) ng/ml SARS-CoV-2, RNA, NAAT (NEGATIVE) 05/05/22 05/05/22 Range/Units 04:33 05:25 WBC (4.8-10.8) K/ul RBC (3.93-5.22) M/uL Hgb (12.0-16.0) g/dl Hct (34.1-44.9) % MCV (80.0-100.0) fL MCH (25.0-34.0) pg MCHC (32.0-36.0) g/dL RDW Std Deviation (36.4-46.3) fL RDW Coeff of Tim (11.5-14.5) % Plt Count (130-400) K/uL MPV (9.4-12.3) fL Immature Gran % (Auto) % Neut % (Auto) % Lymph % (Auto) % Coffee % (Auto) % Eos % (Auto) % Baso % (Auto) % Neut # (Auto) (1.4-6.5) K/uL Lymph # (Auto) (1.2-3.4) K/uL Coffee # (Auto) (0.24-0.82) K/uL Eos # (Auto) (0-0.50) K/uL Baso # (Auto) (0-0.2) K/uL Immature Gran # (Auto) (0.00-0.02) K/uL Sodium 143 (136-145) mmol/L Potassium 3.3 L (3.5-5.1) mmol/L Chloride 104 (98-107) mmol/L Carbon Dioxide 31 (21-32) mmol/L Anion Gap 8 (3-11) BUN 3 L (6-23) mg/dl Creatinine 0.62 (0.6-1.2) mg/dl Est Cr Clr Drug Dosing 113.1 ml/min Est GFR ( Amer) 140.2 ml/min Est GFR (Non-Af Amer) 121.0 ml/min BUN/Creatinine Ratio 4.8 L (10-20) Glucose 83 (70-99(Fasting)) mg/dl Lactate (0.4-2.0) mmol/L Calcium 8.1 L (8.5-10.1) mg/dl Magnesium 1.9 (1.7-2.4) mg/dl Total Bilirubin 0.2 (0.2-1.0) mg/dl AST 14 (13-39) U/L ALT 10 (7-52) U/L Alkaline Phosphatase 55 (34-104) U/L Total Protein 6.1 (6.0-8.3) gm/dl Albumin 3.8 (3.4-5.0) gm/dl Globulin 2.3 L (2.5-4.0) gm/dl Albumin/Globulin Ratio 1.7 (0.9-2) Lipase 44 (11-82) U/L Procalcitonin (0-0.5) ng/ml SARS-CoV-2, RNA, NAAT POSITIVE A* (NEGATIVE) Imaging Data Radiologist's Impression: KUB X-Ray 05/05/22 05:02 KUB CLINICAL HISTORY: Generalized abdominal pain. FINDINGS: An AP, portable, supine abdominal radiograph is compared to study dated 04/04/2022 and correlated with abdominal CT dated 01/28/2022. A gastrojejunostomy tube is in place. There is residual enteric contrast in the rectosigmoid. No bowel obstruction is seen. No evidence of intraperitoneal free air is seen on this supine image. Cholecystectomy clips are noted in the right upper quadrant. Additional surgical clips are seen in the pelvis. The skeletal structures are osteopenic and appear intact. IMPRESSION: No acute abnormality is identified. Electronically signed by: Kirk Burgos M.D. 05/05/2022 9:52 AM SINGLE VIEW CHEST CLINICAL HISTORY: Generalized abdominal pain. Seizure-like activity. FINDINGS: An AP, portable, supine chest radiograph is compared to study dated 04/10/2022. A right-sided central venous infusion port is unchanged in position. The cardiomediastinal silhouette is unremarkable. The lungs and pleural spaces are clear. No pneumothorax is seen. The skeletal structures are osteopenic. The bony thorax is grossly intact. IMPRESSION: No active disease in the chest. ACT 112: Negative or not required by law. Electronically signed by: Kirk Burgos M.D. 05/05/2022 8:17 AM MDM Narrative Patient was seen and evaluated as above in room C10. Review was performed of nursing notes and vital signs. I did review pertinent previous visits and patient history. After obtaining a thorough history and physical examination the above work up was performed. Patient presents to us today for evaluation of abd ominal pain and seizure-like activity. Patient has stable vital signs on arrival. She is hemodynamically stable. There is abdominal tenderness but no guarding or rigidity. There is ostomy output. No bleeding noted. Options of care were discussed with patient and mother at bedside. IV access w as established. Labs were drawn. Within a few minutes of arrival to the department and upon my evaluation the patient went from a state of having abdominal pain and holding her abdomen to an unresponsive status and at that time oxygen dropped into the mid 80s. She was started on supplemental O2. Oxygen rebounded nicely and the episode included upper and lower extremity movements that lasted about 5 minutes. Patient then had about 30 seconds of a calm/pain-free state and then began again with noting abdominal discomfort and holding the abdomen. IV analgesia was ordered. IV fluids also ordered to treat potential underlying dehydration as well. Laboratory studies reveal no leukocytosis. There is anemia noted with hemoglobin of 9.4. This is identical to previous value obtained a few days ago. Metabolic panel reveals mild hypokalemia 3.3. Lactate initially found to be mildly elevated however after fluids was within normal range. Mild hypocalcemia 8.1. Lipase normal. Procalcitonin within normal limits. Urinalysis does not suggest infection. COVID testing positive however mother does note that she had COVID about a month ago. During the patient's stay in the ED there were at least 2 more episodes lasting about 5 minutes in duration with a period of unresponsiveness, mild desaturation of O2 into the mid 80s but again rebounded nicely with oxygen. The patient was not postictal during these. There are no signs of head trauma at this time. No signs of meningitis or encephalitis. KUB and chest x-ray obtained. Per my interpretation these are negative for emergent process. Benefit versus risk of further imaging discussed with the patient and parent. Upon repeat assessment patient resting comfortably and noted great improvement in her pain. At this time I do believe that further evaluation and management is warranted in the inpatient setting. With the patient having an initially elevated lactate in the setting of abdominal pain with her abdominal history, at this time imaging will be performed during her inpatient stay of the abdomen/pelvis but at this time I have a low suspicion for an acute abdomen from a clinical standpoint. Patient and mother happy with plan of care and amenable to inpatient management. I did initiate seizure precautions on entry given the patient's seizure-like activity. Case was discussed with the attending physician. EKG was reviewed by myself and found to be what appears to be a Sinus Rhythm at a rate of 130 beats per minute and per my interpretation reveals no ST elevation, QTc 579. QRS 78. Poor baseline secondary to movement. An order was placed for continuous cardiac monitoring. The monitor shows a rate of 80 with sinus rhythm. GCS: 15 In the evaluation and treatment of this patient the following differential diagnoses were entertained: Electrolyte disturbance, meningitis, encephalitis, vasovagal response, PNES, infection, among others. Impression & Plan Abdominal pain, Witnessed seizure-like activity Discharge Plan Visit Data Chief Complaint: Syncope ED Provider: Elio Rowell ED Midlevel Provider: Wili Moralez Discharge Problem: Abdominal pain, Witnessed seizure-like activity Patient Disposition: Admitted As Inpatient Condition: Good Discharge Instructions Interventions: ED Discharge Assessment Last Done: 05/05/22 08:50
[2022-05-05] MEDS ORDERED: HYDROmorphone INJ 0.5 MG/0.5 ML SYR IV PRN (04:50)
[2022-05-05 05:03] LABS: Basophils # (auto) 0.04 K/uL (0-0.2); Basophils % (auto) 0.6 %; Eosinophils # (auto) 0.08 K/uL (0-0.50); Eosinophils % (auto) 1.2 %; Hematocrit (blood only) 29.2 % (34.1-44.9); Hemoglobin 9.4 g/dl (12.0-16.0); Immature Granulocytes # (auto) 0.02 K/uL (0.00-0.02); Immature Granulocytes % (auto) 0.3 %; Lymphocytes # (auto) 1.85 K/uL (1.2-3.4); Lymphocytes % (auto) 26.6 %; Mean Corpuscular Hemoglobin 28.6 pg (25.0-34.0); Mean Corpuscular Hgb Conc 32.2 g/dL (32.0-36.0); Mean Corpuscular Volume 88.8 fL (80.0-100.0); Mean Platelet Volume 10.5 fL (9.4-12.3); Monocytes # (auto) 0.77 K/uL (0.24-0.82); Monocytes % (auto) 11.1 %; Neutrophils # (auto) 4.19 K/uL (1.4-6.5); Neutrophils % (auto) 60.2 %; Platelet Count 445 K/uL (130-400); RDW Coefficient of Variation 12.2 % (11.5-14.5); RDW Standard Deviation 39.8 fL (36.4-46.3); Red Blood Count 3.29 M/uL (3.93-5.22); White Blood Count 6.95 K/ul (4.8-10.8)
[2022-05-05 05:40] LABS: Albumin Globulin Ratio 1.7 (0.9-2); Albumin Level 3.8 gm/dl (3.4-5.0); BUN Creatinine Ratio 4.8 (10-20); Bilirubin,Total 0.2 mg/dl (0.2-1.0); Calcium 8.1 mg/dl (8.5-10.1); Creatinine Clr Calc Pharmacy 113.1 ml/min; Est GFR (African American) 140.2 ml/min; Globulin 2.3 gm/dl (2.5-4.0); Magnesium 1.9 mg/dl (1.7-2.4); Potassium 3.3 mmol/L (3.5-5.1); Total Protein 6.1 gm/dl (6.0-8.3)
[2022-05-05] MEDS: HYDROmorphone INJ 0.5 MG/0.5 ML SYR IV PRN ×5 (06:02→12:03)
--- NOTE | 2022-05-05 06:10 | History & Physical Report ---
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 Mildly elevated lactate today at 2.4. -Check CT abdomen without contrast -Repeat Lactate -Gentle IVF and electrolyte repletion -Dilaudid 0.5mg IV q 30m PRN -Continue Bentyl, Duloxetine, Pepcid and protonix -Consider referral to [facility] if abdominal pain persists (3) Adrenal insufficiency: Plan: Chronic. HD stable -Continue Hydrocortisone -Continue Fludrocortisone F/E/N - LR at 80mL/hr x 2L, K repletion, NPO for now Ppx - Low risk for DVT Code - Full Dispo - Admit to PCU History of Present Illness Chief Complaint: seizure activity Primary Care Provider: DO Mars Borregoanabella Garcia is a 32yo female well known to the medical service presenting with seizure-like activity. Patient was at [facility] in February and had a partial colectomy. She has been having significant abdominal pain since. She has seizure-like episodes brought on by her abdominal pain. Recently diagnosed with PNES at [facility]. She was at the [facility] on 04/08/22 when she had an episode of unresponsiveness for which a Code Blue was called. She was hospitalized at [facility] from 04/08/22 and ultimately transferred to [facility] ICU. Mother states that patient has experienced seizures twice daily since returning home from [facility] on 04/24/22 - lasting anywhere from a couple seconds to 6 minutes. She has been having severe, twisting abdominal pain and increased air output from her ostomy. Patient's "seizure like" activity begins when her abdominal pain is severe. She loses consciousness then full body convulsions. HR increases to 160-170. No post-ictal confusion or incontinence. Tonight patient had a seizure at 0100 prior to arrival. She had one that lasted 2 minutes then another that lasted 2 minutes shortly after. Afterwards she sat straight up in excruciating abdominal pain and passed out. Her mom states that she regained consciousness then lost consciousness 6-8 more times. In the ER patient had several witnessed episodes of seizure-like activity associated with decrease in oxygen level. Allergies Allergy/AdvReac Type Severity Reaction Status Date / Time adhesive Allergy Severe Redness of Verified 05/02/22 13:45 Skin morphine Allergy Severe Severe Verified 05/02/22 13:45 abdominal Pain, sphincter of oddi spasms amoxicillin Allergy Intermediate RASH Verified 05/02/22 13:45 calcium Allergy Intermediate SEE COMMENT Verified 05/02/22 13:45 [From VIACTIV Multi-Vitamin] cefazolin Allergy Intermediate rash Verified 05/02/22 13:45 Cephalosporins Allergy Intermediate HIVES Verified 05/02/22 13:45 clavulanic acid Allergy Intermediate HIVES Verified 05/02/22 13:45 folic acid Allergy Intermediate SEE COMMENT Verified 05/02/22 13:45 [From VIACTIV Multi-Vitamin] iron [From Venofer] Allergy Intermediate Muscle Pain Verified 05/02/22 13:45 multivitamin with minerals Allergy Intermediate SEE COMMENT Verified 05/02/22 13:45 [From VIACTIV Multi-Vitamin] Penicillins Allergy Intermediate HIVES Verified 05/02/22 13:45 prochlorperazine Allergy Intermediate HIVES Verified 05/02/22 13:45 promethazine Allergy Intermediate hives, Verified 05/02/22 13:45 throat swelling sulfamethoxazole Allergy Intermediate RASH Verified 05/02/22 13:45 sumatriptan Allergy Intermediate RASH Verified 05/02/22 13:45 trimethoprim Allergy Intermediate RASH Verified 05/02/22 13:45 metoclopramide AdvReac Severe anxiety/ Verified 05/02/22 13:45 jittery diphenhydramine AdvReac Intermediate Tachycardia, Verified 05/02/22 13:45 Severe Anxiety WITH IV ONLY erythromycin base AdvReac Intermediate GI SYMPTOMS Verified 05/02/22 13:45 citalopram [From Celexa] AdvReac Unknown CAN'T Verified 05/02/22 13:45 REMEMBER Home Medications Medication Instructions Recorded Confirmed Type dicyclomine 10 mg capsule 10 - 20 mg PO Q6H PRN Abdominal 03/07/18 05/05/22 History Pain hyoscyamine sulfate 0.125 mg 0.125 mg sublingual Q4H PRN 03/07/18 05/05/22 History sublingual tablet (Levsin/SL) Abdominal Cramping pantoprazole 40 mg tablet,delayed 40 mg PO QAM 04/23/20 12/19/22 History release (Protonix) famotidine 40 mg tablet 20 mg PO BID 11/28/19 05/05/22 History lorazepam 2 mg/mL injection 0.5 mg buccal QID PRN Nausea 12/05/19 05/05/22 History solution (Ativan) hydrocortisone 10 mg tablet 10 - 15 mg PO BID 02/07/20 05/05/22 History ondansetron 4 mg disintegrating 4 mg translingual Q6H PRN Nausea 02/07/20 05/05/22 History tablet trimethobenzamide 300 mg capsule 300 mg PO Q6H PRN Nausea And 02/07/20 05/02/22 History Vomiting fexofenadine 180 mg tablet 180 mg PO PM 10/09/20 05/05/22 History gabapentin 250 mg/5 mL oral 300 mg PO TID 10/09/20 05/05/22 History solution fludrocortisone 0.1 mg tablet See Rx Instructions .Route .COMPLEX 12/12/20 05/05/22 History acetaminophen 500 mg tablet 1,000 mg PO Q6H PRN Pain 06/13/21 05/05/22 History (Tylenol Extra Strength) coenzyme Q10 100 mg capsule 0 mg PO PM 06/13/21 05/05/22 History (CoQ-10) multivitamin with minerals-folic 2 tab PO PM 06/13/21 05/05/22 History acid 200 mcg chewable tablet (Multivitamin Gummies) turmeric 400 mg capsule 400 mg PO PM 06/13/21 05/02/22 History empty container (Enema Misc Bottle) #72 ea 01/16/22 04/02/22 Rx hydromorphone 1 mg/mL oral liquid 2 mg PO Q4H PRN Pain 04/01/22 05/05/22 History cholecalciferol (vitamin D3) 25 50 mcg PO DAILY 04/07/22 05/05/22 History mcg (1,000 unit) capsule (Vitamin D3) duloxetine 60 mg capsule,delayed 60 mg PO DAILY 04/07/22 05/05/22 History release methocarbamol 750 mg tablet 750 mg PO Q8H PRN MUSCLE SPASMS 04/07/22 05/05/22 History Past Med/Surg History Medical History Asthma Chronic migraine Colitis Diversion colitis Elevated lipase Endometriosis has had 3 surgeries for this. Last surgery [address] Hemorrhagic cystitis Hypotension Intussusception Pancreatitis PICC (peripherally inserted central catheter) in place TPN SMAS (superior mesenteric artery syndrome) History of SMAS Sphincter of Oddi dysfunction DECREASED GI MOTILITY Transaminitis Uses feeding tube gastroparesis and decreased GI motility can not tolerate feeding and uses TPN UTI (urinary tract infection) Surgical History H/O adenoidectomy H/O laparoscopy H/O lumpectomy right breast 2011 History of appendectomy History of bowel resection Part of duodenum removed due to necrosis; done at [facility] 2019 History of hysterectomy 09/27/19 History of removal of Port-a-Cath 10/13/[address] Geiger, [facility], due to bacteremia/sepsis. History of vascular access device 2017 Hx of colonoscopy during procedure perforated small bowel 10/27/2019 at [facility], subsequent repair of duodenal area. Hx of ileostomy Hx of tonsillectomy S/P cholecystectomy 2015 S/P wrist surgery right Family History Father Hyperlipidemia Other No significant family history Social History Smoking Status: Never smoker Second Hand Exposure: No; Hx Alcohol Use: No Hx Substance Use: No Preferred Language: Ugandan Communication Ability: Effective Visual Impairment: No Limitations Hearing Ability: Normal Medical Laboratory Specialist Required: No Beliefs That Will Affect Care: Spiritual marital status: Single Current Living Situation: Parent and Family Current Living Situation Comment: Lives with family. current occupational status: unemployed current occupation: completed 4-year degree at [employer] How many Children do You have: 0 Feels Safe at Home: Yes Sexual Activity Comment: not sexually active Assistive Devices: None Review of Systems Review of Systems: All systems reviewed & are unremarkable except as noted in HPI & below Physical Exam Physical Exam: General: chronically ill in appearance, moaning in severe pain, mother answers questions for patient Skin: warm, dry, intact, no rashes or lesions HEENT: NC/AT, PERRL, EOMI, anicteric sclera, conjunctiva without injection, external ear normal to inspection and nontender, nares patent, moist mucus membranes, dentition intact, no oropharyngeal lesions, neck supple, trachea midline, no LAD, no thyromegaly, no JVD Heart: +S1/S2, regular, tachycardic, no m/r/g Lungs: equal air entry bilaterally, no rales/rhonchi/wheezes Abd: +BS, soft, diffusely tender, PEG tube in place, colostomy in place Ext: warm, 2+ pulses in UE/LE bilaterally, no clubbing/cyanosis or edema Neuro: nonfocal, patient AA&O x 4, speech intact, no facial droop, moving all extremities on command with equal strength 5/5 Results & Data Results & Data ([facility]) Vital Signs (Past 12 Hours) Vital Signs Temp Pulse Pulse Resp BP BP Pulse Ox 05/05/22 05:05 85 L 05/05/22 05:39 73 20 99 05/05/22 05:39 05/05/22 05:30 73 20 112/86 99 05/05/22 04:10 36.7 C 91 H 22 113/81 100 O2 Del Method O2 Flow Rate 05/05/22 05:05 Non-rebreather 15 05/05/22 05:39 Non-rebreather 10 05/05/22 05:39 Non-rebreather 10 05/05/22 05:30 Non-rebreather 10 05/05/22 04:10 Room Air Laboratory Results Laboratory Results WBC 6.95 K/ul (4.8-10.8) 05/05/22 04:33 RBC 3.29 M/uL (3.93-5.22) L 05/05/22 04:33 Hgb 9.4 g/dl (12.0-16.0) L 05/05/22 04:33 Hct 29.2 % (34.1-44.9) L 05/05/22 04:33 MCV 88.8 fL (80.0-100.0) 05/05/22 04:33 MCH 28.6 pg (25.0-34.0) 05/05/22 04:33 MCHC 32.2 g/dL (32.0-36.0) 05/05/22 04:33 RDW Std Deviation 39.8 fL (36.4-46.3) 05/05/22 04:33 RDW Coeff of Tim 12.2 % (11.5-14.5) 05/05/22 04:33 Plt Count 445 K/uL (130-400) H 05/05/22 04:33 MPV 10.5 fL (9.4-12.3) 05/05/22 04:33 Immature Gran % (Auto) 0.3 % 05/05/22 04:33 Neut % (Auto) 60.2 % 05/05/22 04:33 Lymph % (Auto) 26.6 % 05/05/22 04:33 Nobles % (Auto) 11.1 % 05/05/22 04:33 Eos % (Auto) 1.2 % 05/05/22 04:33 Baso % (Auto) 0.6 % 05/05/22 04:33 Neut # (Auto) 4.19 K/uL (1.4-6.5) 05/05/22 04:33 Lymph # (Auto) 1.85 K/uL (1.2-3.4) 05/05/22 04:33 Nobles # (Auto) 0.77 K/uL (0.24-0.82) 05/05/22 04:33 Eos # (Auto) 0.08 K/uL (0-0.50) 05/05/22 04:33 Baso # (Auto) 0.04 K/uL (0-0.2) 05/05/22 04:33 Immature Gran # (Auto) 0.02 K/uL (0.00-0.02) 05/05/22 04:33 Sodium 143 mmol/L (136-145) 05/05/22 04:33 Potassium 3.3 mmol/L (3.5-5.1) L 05/05/22 04:33 Chloride 104 mmol/L (98-107) 05/05/22 04:33 Carbon Dioxide 31 mmol/L (21-32) 05/05/22 04:33 Anion Gap 8 (3-11) 05/05/22 04:33 BUN 3 mg/dl (6-23) L 05/05/22 04:33 Creatinine 0.62 mg/dl (0.6-1.2) 05/05/22 04:33 Est Cr Clr Drug Dosing 113.1 ml/min 05/05/22 04:33 Est GFR ( Amer) 140.2 ml/min 05/05/22 04:33 Est GFR (Non-Af Amer) 121.0 ml/min 05/05/22 04:33 BUN/Creatinine Ratio 4.8 (10-20) L 05/05/22 04:33 Glucose 83 mg/dl (70-99(Fasting)) 05/05/22 04:33 Lactate 2.4 mmol/L (0.4-2.0) H* 05/05/22 04:33 Calcium 8.1 mg/dl (8.5-10.1) L 05/05/22 04:33 Magnesium 1.9 mg/dl (1.7-2.4) 05/05/22 04:33 Total Bilirubin 0.2 mg/dl (0.2-1.0) 05/05/22 04:33 AST 14 U/L (13-39) 05/05/22 04:33 ALT 10 U/L (7-52) 05/05/22 04:33 Alkaline Phosphatase 55 U/L (34-104) 05/05/22 04:33 Total Protein 6.1 gm/dl (6.0-8.3) 05/05/22 04:33 Albumin 3.8 gm/dl (3.4-5.0) 05/05/22 04:33 Globulin 2.3 gm/dl (2.5-4.0) L 05/05/22 04:33 Albumin/Globulin Ratio 1.7 (0.9-2) 05/05/22 04:33 Lipase 44 U/L (11-82) 05/05/22 04:33 Procalcitonin < 0.05 ng/ml (0-0.5) 05/05/22 04:33 PG Care Time/CCT Total # of Minutes Spent Total Time Spent with Patient: Total time spent is greater than 50% in coordination of care (as documented) at patient's floor/unit and/or counseling patient: Coding Level of Care Code 72185 Initial Inpt Care Lvl 2 Diagnoses Witnessed seizure-like activity R56.9 Abdominal pain, chronic, generalized R10.84; G89.29 Adrenal insufficiency E27.40
[2022-05-05 06:51] LABS: Appearance Urine Clear (Clear); Bilirubin Urine Negative (Negative); Blood Urine Negative (Negative); Color Urine Yellow; Glucose Urine UA Negative (Negative); Ketones Urine Negative (Negative); Leukocyte Esterase Urine Negative (Negative); Nitrite Urine Negative (Negative); Protein Urine Negative (Negative); Specific Gravity Urine 1.006 (1.000-1.030); Urobilinogen Urine Negative (Negative)
[2022-05-05] MEDS ORDERED: SODIUM CHLORIDE 0.9% 1000ML 1,000 ML IV ONE (07:26)
--- NOTE | 2022-05-05 08:18 | XRay Report ---
SINGLE VIEW CHEST CLINICAL HISTORY: Generalized abdominal pain. Seizure-like activity. FINDINGS: An AP, portable, supine chest radiograph is compared to study dated 04/10/2022. A right-memo ed central venous infusion port is unchanged in position. The cardiomediastinal silhouette is unremar kable. The lungs and pleural spaces are clear. No pneumothorax is seen. The skeletal structures are o steopenic. The bony thorax is grossly intact. IMPRESSION: No active disease in the chest. ACT 112: Negative or not required by law. Electronically signed by: Kirk Burgos M.D. 05/05/2022 8:17 AM
[2022-05-05] MEDS ORDERED: ONDANSETRON INJ 2 MG/ML 2 ML VIAL IV STA (09:43)
--- NOTE | 2022-05-05 09:55 | XRay Report ---
KUB CLINICAL HISTORY: Generalized abdominal pain. FINDINGS: An AP, portable, supine abdominal radiograph is compared to study dated 04/04/2022 and matti elated with abdominal CT dated 01/28/2022. A gastrojejunostomy tube is in place. There is residual ent tasia contrast in the rectosigmoid. No bowel obstruction is seen. No evidence of intraperitoneal free air is seen on this supine image. Cholecystectomy clips are noted in the right upper quadrant. Additi onal surgical clips are seen in the pelvis. The skeletal structures are osteopenic and appear intact. IMPRESSION: No acute abnormality is identified. Electronically signed by: Tasia Burgos M.D. 05/05/2022 9:52 AM
[2022-05-05] MEDS: LORazepam 1 MG in SYRINGE 0 ML IV PRN (10:11)
[2022-05-05] MEDS: GABAPENTIN 250 MG/5 ML 470 ML BTL PO SCH ×3 (10:53→20:32)
[2022-05-05] MEDS: DICYCLOMINE HCL 10 MG CAP PO PRN ×2 (10:54→20:33)
[2022-05-05] MEDS: METHOCARBAMOL 750 MG TABLET PO PRN ×2 (10:54→20:33)
[2022-05-05] MEDS: FAMOTIDINE 20 MG TAB PO SCH ×2 (10:55→20:31)
[2022-05-05] MEDS: FLUDROCORTISONE ACETATE 0.1 MG TAB PO SCH ×2 (10:55→20:33)
[2022-05-05] MEDS: DULoxetine HCL 60 MG CAP PO SCH (10:55)
[2022-05-05] MEDS: HYDROCORTISONE 10 MG TAB PO SCH ×2 (10:56→13:21)
[2022-05-05] MEDS: PANTOprazole 40 MG TAB PO SCH (10:57)
--- NOTE | 2022-05-05 11:10 | Hospitalist Progress Note ---
Date of Service May 05, 2022 Assessment & Plan (1) Seizure-like activity: Plan: 32yo female a complex PMH including gastroparesis, SMA syndrome, ileostomy placement, G-tube placement (on TPN), and adrenal insufficiency presents after multiple episodes of seizure-like activity at home, as well as with intractable abdominal pain and nausea. Chronic generalized abdominal pain, extensive GI history Patient with very extensive GI history including gastroparesis and multiple abdominal surgeries Awaiting intestinal transplant at [facility] Will obtain CT a/p with oral contrast (administered through G tube or directly into ostomy site), but will hold of until better pain control is achieved - anticipate will be done on 05/06 Lactate elevated on admission, but repeat value (05/05) not elevated 05/05: pain control switched to dilaudid BANDSAW OPERATOR (current settings: 0.3mg q15min prn) Gentle IVF, electrolyte repletion; plan to restart TPN on 05/06 Continue bentyl, duloxetine, pepcid, protonix, gabapentin Seizure-like activity Patient with multiple episodes of seizure-like activity which seem to be triggered by severe pain Patient was diagnosed with PNES recently at [facility]; however, suspect symptoms moreso represent vagal activity precipitated by pain Optimize pain control (as above) Continue seizure and fall precautions Recommend following up with PNES clinic at [facility] Covid Patient tested positive on 04/18/2022, repeat PCR on admission still positive Patient very unlikely to still be contagious, but will implement isolation precautions per hospital policy Supplemental oxygen as-needed Adrenal insufficiency Chronic; hemodynamically stable Continue hydrocortisone, fludrocortisone FEN: NPO, TPN held (anticipate restart on 05/06), LR @ 80mL/hr + KCl 20Meq Code status: full code DVT ppx: SCDs Isolation: droplet Dispo: PCU (2) Syncope: (3) Abdominal pain, chronic, generalized: (4) Adrenal insufficiency: (5) Chronic malnutrition: (6) Gastroparesis: (7) Gastrostomy tube in place: (8) Intestinal motility disorder: (9) Nausea and vomiting: (10) On total parenteral nutrition (TPN): (11) Severe protein-calorie malnutrition: Admission and Anticipated Discharge Date Admission Date: May 05, 2022 Supervising Physician Co-Signing Physician Notes I personally examined the patient and verified all solorzano points of history and exam, discussed case, and agree with decision making with Dr Morillo. Uncontrolled abdominal painpain was worsemore episodes of her passing out/seizure-like activity. Vitals noted, in general she is awake and alert appears uncomfortable, and then after she rolls on her side and holds her abdomen in pain, she loses consciousness, lays still for about 5-10 seconds, and then has generalized but not tonic-clonic convulsive like activity that lasts for probably 1 minute, palpable pulse throughout, pulse ox in the mid to high 90s throughout, the episodes self arrest, and then while groggy she does have a return of consciousness. These appear similar, but slightly more progressed, from the episodes described from when I had her during her last admission. Abdominal pain, "seizure-like activity"really I think the abdominal pain being uncontrolled is what is driving all of this, and whether the episodes are all vagal with myoclonic jerks, PNES, or some combination of the 2it really seems like controlling the abdominal pain is the main factor here. For now BANDSAW OPERATOR, discussed with patient/mom and also discussed with her PCP, probably need to move ahead with some sort of chronic pain regimen" basal bolus fashion" given the severity of her pain/how much this interfering with her ability to have any life, and the fact that she is having these episodes over and over that seem to be in response to pain. Once she has enough ability to toleratewill do a CT wi th enteral contrast as best as possible to look for any possible structural cause of the pain, although certainly that will not be a definitive study, but rather would hopefully help catch any serious catastrophes. Otherwise as above. Subjective Patient seen and evaluated at bedside this morning. Patient's mother was at bedside. Patient reports continued severe intermittent stabbing abdominal pain in addition to nausea and PO intolerance. While discussing the case with patient and family, patient experienced a sharp abdominal pain which was followed but about one minute of generalized tonic-clonic convulsions; patient regained consciousness shortly thereafter and was interactive, though still in pain. Patient denies CP, SOB, vomiting, or other symptoms. Review of Systems Review of Systems: See HPI Physical Exam Physical Exam: Constitutional: uncomfortable-appearing, no acute distress CV: see attending documentation Resp: see attending documentation GI: see attending documentation Neuro: alert, oriented, no focal neurologic deficit appreciated Results & Data Results & Data ([facility]) Vital Signs (Past 12 Hours) Vital Signs Temp Pulse Pulse Pulse Resp BP BP 05/05/22 08:50 05/05/22 09:25 36.5 C 75 18 116/81 05/05/22 08:30 61 05/05/22 08:30 119/82 05/05/22 08:00 63 05/05/22 08:00 117/82 05/05/22 07:31 77 16 05/05/22 07:31 127/86 05/05/22 07:30 85 17 05/05/22 07:00 131/89 05/05/22 07:00 93 H 22 05/05/22 05:05 05/05/22 05:39 73 20 05/05/22 05:39 05/05/22 05:30 73 20 112/86 05/05/22 04:10 36.7 C 91 H 22 113/81 Pulse Ox O2 Del Method O2 Flow Rate 05/05/22 08:50 Non-rebreather 05/05/22 09:25 99 Oxymask 8 05/05/22 08:30 100 Non-rebreather 05/05/22 08:30 05/05/22 08:00 100 Non-rebreather 05/05/22 08:00 05/05/22 07:31 100 Non-rebreather 05/05/22 07:31 05/05/22 07:30 99 Non-rebreather 05/05/22 07:00 05/05/22 07:00 99 Non-rebreather 05/05/22 05:05 85 L Non-rebreather 15 05/05/22 05:39 99 Non-rebreather 10 05/05/22 05:39 Non-rebreather 10 05/05/22 05:30 99 Non-rebreather 10 05/05/22 04:10 100 Room Air Resident Activity Tracking Resident Involvement: Resident Care Provided Care Provided: Adult Hospital Medicine
[2022-05-05] MEDS ORDERED: NALOXONE HCL 0.4 MG/1 ML VIAL/CARP IV PRN (12:19)
[2022-05-05] MEDS ORDERED: HYDROmorphone INJ 1 MG/ML SYRINGE IV STA (12:20)
[2022-05-05] MEDS: HYDROmorphone PCA 30 MG/30 ML IV PRN (13:06)
[2022-05-05] MEDS: POTASSIUM CHLORIDE 20 MEQ in LACTATED RINGER'S 1,000 ML IV SCH (13:13)
[2022-05-05] MEDS: SODIUM CHLORIDE 0.9% 1000ML 1,000 ML IV SCH (13:20)
--- NOTE | 2022-05-05 16:05 | CT Scan Report ---
CT OF THE ABDOMEN AND PELVIS WITHOUT CONTRAST CLINICAL HISTORY: Possible intussusception, severe abdominal pain. COMPARISON STUDY: CT of the abdomen and pelvis January 28, 2022 and KUB May 05, 2022. TECHNIQUE: Axial images of the abdomen and pelvis were obtained without IV contrast. Images were revi ewed in the axial, sagittal, and coronal planes. Automated exposure control was utilized for the jeremiah dy. A dose lowering technique was utilized adhering to the principles of ALARA. FINDINGS: Lung bases are unremarkable. No pneumatosis, free air or portal venous gas is present. Eval uation of the abdomen and pelvis is suboptimal on this unenhanced exam. There is no biliary dilatatio n status post cholecystectomy. Liver, spleen, adrenal glands and left kidney are unremarkable. A 2 mm calculus within lower pole of the right kidney is present. There are no ureteral calculi. There is n o hydronephrosis. Gastrojejunostomy tube is well-positioned. A right lower quadrant ileostomy is note d. There are postoperative findings consistent with subtotal colectomy. Interval laparotomy with righ t colectomy is noted. Hyperdense material suggestive of contrast within the Radha pouch is noted. There is no evidence for a bowel obstruction. No intussusception is identified. There is mild strandi ng and trace fluid adjacent to the distal stomach. There is trace perihepatic fluid. No fluid collect ion is identified to suggest an abscess. There is no lymphadenopathy. IMPRESSION: 1. Mild stranding adjacent to the distal stomach with trace perigastric and perihepatic fluid. This c ould be postsurgical. However, gastritis/peptic ulcer disease is within the differential. No pneumope ritoneum. 2. No intussusception. No bowel obstruction. Status post subtotal colectomy with right lower quadrant ileostomy. 3. 2 mm right renal calculus. No ureteral calculi. No hydronephrosis. ACT 112: Negative or not required by law. Electronically signed by: Ruperto Lopez M.D. 05/05/2022 4:04 PM
[2022-05-05] MEDS ORDERED: LORAZEPAM 2 MG/1 ML ONE (17:57)
[2022-05-05] MEDS: ACETAMINOPHEN 500 MG TAB PO PRN (18:07)
[2022-05-05] MEDS: ONDANSETRON INJ 2 MG/ML 2 ML VIAL IV PRN (21:53)
[2022-05-05] MEDS: MELATONIN 3 MG TAB PO PRN (21:53)
[2022-05-06] MEDS: DICYCLOMINE HCL 10 MG CAP PO PRN ×3 (02:22→22:17)
[2022-05-06] MEDS: METHOCARBAMOL 750 MG TABLET PO PRN ×3 (02:22→22:18)
[2022-05-06] MEDS: ACETAMINOPHEN 500 MG TAB PO PRN ×4 (02:22→22:15)
[2022-05-06] MEDS: LORazepam 1 MG in SYRINGE 0 ML IV PRN (02:24)
[2022-05-06] MEDS: POTASSIUM CHLORIDE 20 MEQ in LACTATED RINGER'S 1,000 ML IV SCH (02:24)
[2022-05-06 06:53] LABS: Hematocrit (blood only) 25.9 % (34.1-44.9); Hemoglobin 8.4 g/dl (12.0-16.0); Mean Corpuscular Hemoglobin 29.2 pg (25.0-34.0); Mean Corpuscular Hgb Conc 32.4 g/dL (32.0-36.0); Mean Corpuscular Volume 89.9 fL (80.0-100.0); Mean Platelet Volume 10.1 fL (9.4-12.3); Platelet Count 307 K/uL (130-400); RDW Coefficient of Variation 12.5 % (11.5-14.5); RDW Standard Deviation 41.4 fL (36.4-46.3); Red Blood Count 2.88 M/uL (3.93-5.22); White Blood Count 4.83 K/ul (4.8-10.8)
[2022-05-06] MEDS ORDERED: TPN/PPN CONSULT PHARMACY PRN (07:14)
[2022-05-06 07:16] LABS: Potassium 3.4 mmol/L (3.5-5.1)
[2022-05-06 07:17] LABS: Albumin Level 3.3 gm/dl (3.4-5.0); BUN Creatinine Ratio 3.6 (10-20); Bilirubin Direct 0.1 mg/dl (0-0.2); Bilirubin,Total 0.3 mg/dl (0.2-1.0); Calcium 7.8 mg/dl (8.5-10.1); Creatinine Clr Calc Pharmacy 124.1 ml/min; Est GFR (Non-African American) 125.1 ml/min; Total Protein 5.2 gm/dl (6.0-8.3)
[2022-05-06] MEDS ORDERED: TPN/PPN CONSULT PHARMACY STA (07:17)
--- NOTE | 2022-05-06 07:30 | Hospitalist Progress Note ---
Date of Service May 06, 2022 Assessment & Plan (1) Seizure-like activity: Plan: 32yo female a complex PMH including gastroparesis, SMA syndrome, ileostomy placement, G-tube placement (on TPN), and adrenal insufficiency presents after multiple episodes of seizure-like activity at home, as well as with intractable abdominal pain and nausea. Chronic generalized abdominal pain, extensive GI history Patient with very extensive GI history including gastroparesis and multiple abdominal surgeries Awaiting intestinal transplant at [facility] , but will hold of until better pain control is achieved - anticipate will be done on 05/06 Lactate elevated on admission, but repeat value (05/05) not elevated Gentle IVF, electrolyte repletion Continue bentyl, duloxetine, pepcid, protonix, gabapentin Continue zofran and ativan staggered for nausea 05/05: pain control switched to dilaudid STATIONARY ENGINEER APPRENTICE (0.3mg q15min prn) 05/06: pain control inadequate; changed STATIONARY ENGINEER APPRENTICE settings to 0.4mg q15min prn 05/06: CT a/p: mild stranding adjacent to the distal stomach with trace perigastric and perihepatic fluid, possibly postsurgical though gastritis/peptic ulcer disease is within the differential; no pneumoperitoneum; no intussusception; no bowel obstruction; status post subtotal colectomy with right lower quadrant ileostomy Tentative plan is to obtain CT a/p with oral contrast (administered through PEG and ostomy site) on 05/07 as long as pain control has improved Seizure-like activity Patient with multiple episodes of seizure-like activity which seem to be triggered by severe pain Patient was diagnosed with PNES recently at [facility]; however, suspect symptoms moreso represent vagal activity precipitated by pain Optimize pain control (as above) Continue seizure and fall precautions Recommend following up with PNES clinic at [facility] Severe protein-calorie malnutrition Secondary to extensive GI pathology 05/06: restarting TPN Adrenal insufficiency Chronic; hemodynamically stable Continue hydrocortisone, fludrocortisone Covid Patient tested positive on 04/18/2022, repeat PCR on admission still positive Patient very unlikely to still be contagious, but will implement isolation precautions per hospital policy Supplemental oxygen as-needed FEN: NPO other than crackers/sips, TPN, LR @ 80mL/hr + KCl 20Meq Code status: full code DVT ppx: SCDs Isolation: droplet Dispo: PCU (2) Syncope: (3) Abdominal pain, chronic, generalized: (4) Adrenal insufficiency: (5) Chronic malnutrition: (6) Gastroparesis: (7) Gastrostomy tube in place: (8) Intestinal motility disorder: (9) Nausea and vomiting: (10) On total parenteral nutrition (TPN): (11) Severe protein-calorie malnutrition: Admission and Anticipated Discharge Date Admission Date: May 05, 2022 Supervising Physician Co-Signing Physician Notes I personally examined the patient and verified all solorzano points of history and exam, discussed case, and agree with decision making with Dr Morillo. Pain doing much better with escalation of STATIONARY ENGINEER APPRENTICE. More comfortable. Notes that she only had 1 vagal/seizure-like episode todayand it was when she changed her ostomy bag. Given that she has been having trouble with something creating p ain/fractioning of her ostomy she was not at all surprised. Otherwise she has been doing better. Does not at home despite probably about 2-1/2 months of trying, she suspects that she may be is able to tolerate a quarter of her nutritional goal via tube feeds/enteral intake. Vitals noted, in general she is awake and alert pleasant no distress. HEENT normocephalic atraumatic mucous membranes moist. Breathing unlabored no accessory muscle use good effort. Skin shows no rashes no pallor or icterus. Neuro without focal deficits. Abdominal pain, "seizure-like activity"really I think the abdominal pain being uncontrolled is what is driving all of this, and whether the episodes are all vagal with myoclonic jerks, PNES, or some combination of the 2it really seems like controlling the abdominal pain is the main factor here. For now STATIONARY ENGINEER APPRENTICE, pain control better. Probably tomorrow moved to initiate more of a "basal/bolus" pain regimen with fentanyl patch and oral liquid oxycodone (she notes that she gets abdominal painsuspected sphincter of Oddi spasmwith morphine) and follow for tolerability. Also tomorrow CT with enteral contrast to look for any obvious indications of what might be causing her pain (although I do suspect adhesions as a major culprit) Subjective Patient seen and evaluated at bedside this morning. Patient's mother reports patient had three episodes of seizure-like activity overnight; these episodes were similar to prior. Today, patient feels about the same as yesterday. Abdominal pain control has improved a bit after starting the STATIONARY ENGINEER APPRENTICE yesterday, but pain control overall is not quite adequate yet. Patient's nausea has improved and she is asking for crackers and tea. No additional complaints at this time. Denies CP, SOB, diarrhea, or other symptoms. Physical Exam Physical Exam: Constitutional: uncomfortable-appearing, no acute distress CV: regular rate, no murmur, extremities well-perfused Resp: CTABL GI: mild/moderate abdominal tenderness to palpation Neuro: alert, oriented, no focal neurologic deficit appreciated Results & Data Results & Data ([facility]) Vital Signs (Past 12 Hours) Vital Signs Temp Pulse Pulse Resp BP Pulse Ox O2 Del Method 05/06/22 03:20 96 H 05/06/22 03:00 36.5 C 93 H 20 122/83 96 Room Air 05/05/22 22:50 36.7 C 108 H 18 121/87 97 Room Air Resident Activity Tracking Resident Involvement: Resident Care Provided Care Provided: Adult Hospital Medicine
[2022-05-06] MEDS: HYDROCORTISONE 10 MG TAB PO SCH ×2 (09:13→15:08)
[2022-05-06] MEDS: PANTOprazole 40 MG TAB PO SCH (09:13)
[2022-05-06] MEDS: FAMOTIDINE 20 MG TAB PO SCH ×2 (09:14→22:20)
[2022-05-06] MEDS: DULoxetine HCL 60 MG CAP PO SCH (09:14)
[2022-05-06] MEDS: FLUDROCORTISONE ACETATE 0.1 MG TAB PO SCH ×2 (09:16→22:21)
[2022-05-06] MEDS ORDERED: HYDROmorphone INJ 0.5 MG/0.5 ML SYR IV STA ×2 (09:19→21:55)
[2022-05-06] MEDS ORDERED: LORazepam 1 MG in SYRINGE 0 ML IV PRN (09:20)
[2022-05-06] MEDS: GABAPENTIN 250 MG/5 ML 470 ML BTL PO SCH ×3 (09:32→22:14)
[2022-05-06] MEDS: ONDANSETRON INJ 2 MG/ML 2 ML VIAL IV PRN ×3 (09:32→22:10)
[2022-05-06] MEDS ORDERED: DEXTROSE 10% 1,000 ML IV PRN (10:51)
[2022-05-06] MEDS: SODIUM CHLORIDE 0.9% 1000ML 1,000 ML IV SCH ×2 (12:19→15:14)
--- NOTE | 2022-05-06 12:57 | Pharmacy Report ---
Pharmacy PN Initial Consult - Date of Service May 06, 2022 - Scope Pharmacy has been consulted to manage parenteral nutrition orders and order appropriate labs. As part of the Nutrition Support Team guidelines, pharmacy will work in conjunction with dietary when determining the patients caloric needs. - Subjective The patient is a 32 year old F admitted on 05/05/22 06:10 for ABD PAIN, SEIZURE ACTIVITY. Patient is to continue chronic TPN while inpatient. Required secondary to long-standing/complicated GI history. - Objective Height: 5 ft 6 in Weight: 53.5 kg Intake & Output (Last 24Hrs): Intake & Output 05/04/22 05/05/22 05/06/22 05/07/22 06:59 06:59 06:59 06:59 Intake Total 500 / 500 3310 / 3310 Balance 500 / 500 3310 / 3310 Weight 54 kg 53.5 kg Laboratory Data (Last 24 Hrs):: 05/06/22 05/06/22 06:15 06:15 Sodium 144 Potassium 3.4 L Chloride 106 Carbon Dioxide 34 H BUN 2 L Creatinine 0.56 L Glucose 73 Calcium 7.8 L Phosphorus 3.7 Total Bilirubin 0.3 AST 14 ALT 10 Alkaline Phosphatase 48 Albumin 3.3 L Nutrition Assessment:: Please refer to the Notes section of the EMR for the most recent composition professor note. - Assessment * DF is a 32 year old female well known to pharmacy TPN consult service * Patient has extensive/complicated GI history including gastroparesis, history of multiple GI histories, intractable abdominal pain/nausea, etc. * Patient now experiencing significant abdominal pain, requiring hydromorphone AUTOMOBILE DAMAGE APPRAISER * TPN was discontinued by [facility] in February 2022, but patient was only able to tolerate trickle feeds through G-J tube and minimal via PO route * Plan is to restart TPN during this hospitalization * Macronutrients recs per dietary, appreciated. Phos level of 3.7 mg/dL today, discussed with dietary and will start with day #2 recs. Can advance to goal tomorrow. * Patient requires SMOFlipids, which pharmacy can provide during this admission. Will utilize prolonged duration (~8 hours), as per past experience. * Intolerance reported to our MVI formulation, so will withhold from TPN * Will utilize cyclic TPN over 18 hours, as per prior TPN formulations - Plan For day 1 of PN administration, the following will be ordered: Macronutrients Amino acids 58 grams/day Dextrose 101 grams/day SMOFlipids 50 grams/day Micronutrients Sodium chloride 120 mEq Potassium phosphate 15 mMol Potassium chloride 40 mEq Potassium acetate 40 mEq Magnesium sulfate 12.18 mEq Calcium gluconate 9.3 mEq Additional additives: folic acid 1 mg, thiamine 100 mg Total volume 837.2 mL to be infused over 18 hrs will provide 1073 kcal/day Labs to be ordered per PN order protocol Pharmacy will follow and adjust parenteral nutrition orders on a daily basis. Thank you.
--- NOTE | 2022-05-06 19:07 | Billing Data ---
Date of Service May 06, 2022 Coding Level of Care Code 73353 Subseq Hosp Care Lvl 3
[2022-05-06] MEDS: LORazepam 1 mg IV INJ IV PRN (19:35)
[2022-05-06] MEDS ORDERED: CENTRAL TPN IV SCH (21:00)
[2022-05-06] MEDS ORDERED: [UNRECOGNIZED DRUG - OTHER] IV SCH (21:00)
[2022-05-06] MEDS ORDERED: AMINO ACID 8% IV SCH (21:00)
[2022-05-06] MEDS: HYDROmorphone PCA 30 MG/30 ML IV PRN (21:07)
--- NOTE | 2022-05-06 21:46 | Electrocardiogram Report ---
Test Reason : Blood Pressure : / mmHG Vent. Rate : 130 BPM Atrial Rate : 125 BPM P-R Int : 000 ms QRS Dur : 078 ms QT Int : 394 ms P-R-T Axes : 000 041 028 degrees QTc Int : 579 ms Poor data quality, interpretation may be adversely affected Sinus tachycardia Nonspecific ST and T wave abnormality Abnormal ECG When compared with ECG of 08-APR-2022 14:58, Vent. rate has increased BY [address] now depressed in Anterior leads Nonspecific T wave abnormality now evident in Anterolateral leads Confirmed by John Nathan ([id number]) on 05/06/2022 9:46:14 PM Referred By: REFERRED SELF Confirmed By:John Natahn
[2022-05-06] MEDS: MELATONIN 3 MG TAB PO PRN (22:15)
[2022-05-07] MEDS: LORazepam 1 mg IV INJ IV PRN ×4 (02:00→20:53)
[2022-05-07] MEDS ORDERED: HYDROmorphone INJ 0.5 MG/0.5 ML SYR IV STA ×4 (03:42→23:25)
[2022-05-07] MEDS: ONDANSETRON INJ 2 MG/ML 2 ML VIAL IV PRN ×2 (03:55→11:19)
[2022-05-07 06:25] LABS: Hematocrit (blood only) 24.7 % (34.1-44.9); Hemoglobin 8.2 g/dl (12.0-16.0); Mean Corpuscular Hemoglobin 30.8 pg (25.0-34.0); Mean Corpuscular Hgb Conc 33.2 g/dL (32.0-36.0); Mean Corpuscular Volume 92.9 fL (80.0-100.0); Mean Platelet Volume 10.6 fL (9.4-12.3); Platelet Count 322 K/uL (130-400); RDW Coefficient of Variation 12.6 % (11.5-14.5); RDW Standard Deviation 43.3 fL (36.4-46.3); Red Blood Count 2.66 M/uL (3.93-5.22); White Blood Count 5.05 K/ul (4.8-10.8)
[2022-05-07 06:43] LABS: Alanine Aminotransferase 9 U/L (7-52); Albumin Globulin Ratio 1.8 (0.9-2); Albumin Level 3.3 gm/dl (3.4-5.0); Alkaline Phosphatase 43 U/L (34-104); Anion Gap 2 (3-11); Aspartate Aminotransferase 12 U/L (13-39); BUN Creatinine Ratio 12.5 (10-20); Blood Urea Nitrogen 6 mg/dl (6-23); Calcium 7.6 mg/dl (8.5-10.1); Carbon Dioxide 34 mmol/L (21-32); Chloride 106 mmol/L (98-107); Creatinine Clr Calc Pharmacy 155.3 ml/min; Est GFR (African American) > 150.0 ml/min; Est GFR (Non-African American) 131.6 ml/min; Globulin 1.8 gm/dl (2.5-4.0); Glucose 164 mg/dl (70-99(Fasting)); Potassium 4.2 mmol/L (3.5-5.1); Sodium 142 mmol/L (136-145); Total Protein 5.1 gm/dl (6.0-8.3)
--- NOTE | 2022-05-07 06:43 | Hospitalist Progress Note ---
Date of Service May 07, 2022 Assessment & Plan (1) Seizure-like activity: Plan: 32yo female a complex PMH including gastroparesis, SMA syndrome, ileostomy placement, G-tube placement (on TPN), and adrenal insufficiency presents after multiple episodes of seizure-like activity at home, as well as with intractable abdominal pain and nausea. Chronic generalized abdominal pain, extensive GI history Patient with very extensive GI history including gastroparesis and multiple abdominal surgeries Awaiting intestinal transplant at [facility] , but will hold of until better pain control is achieved - anticipate will be done on 05/06 Lactate elevated on admission, but repeat value (05/05) not elevated Gentle IVF, electrolyte repletion Continue bentyl, duloxetine, pepcid, protonix, gabapentin Continue zofran and ativan staggered for nausea 05/05: pain control switched to dilaudid MIXING PLANT OPERATOR (0.3mg q15min prn) 05/06: pain control inadequate; changed MIXING PLANT OPERATOR settings to 0.4mg q15min prn 05/06: CT a/p: mild stranding adjacent to the distal stomach with trace perigastric and perihepatic fluid, possibly postsurgical though gastritis/peptic ulcer disease is within the differential; no pneumoperitoneum; no intussusception; no bowel obstruction; status post subtotal colectomy with right lower quadrant ileostomy 05/07: CT a/p (this time with IV contrast and oral contrast administered via GJ tube): mild improvement in wall thickening and adjacent fat stranding at the distal stomach, no evidence of bowel obstruction, trace BL pleural effusions, GJ tube in positioned Seizure-like activity Patient with multiple episodes of seizure-like activity which seem to be triggered by severe pain Patient was diagnosed with PNES recently at [facility]; however, suspect symptoms moreso represent vagal activity precipitated by pain Optimize pain control (as above) Continue seizure and fall precautions Recommend following up with PNES clinic at [facility] Severe protein-calorie malnutrition Secondary to extensive GI pathology 05/06: restarting TPN Plan to slowly introduce tube feeds pending clinical improvement Adrenal insufficiency Chronic; hemodynamically stable Continue hydrocortisone, fludrocortisone Covid Patient tested positive on 04/18/2022 (at [facility]), repeat PCR on admission still positive Patient very unlikely to still be contagious, but will implement isolation precautions per hospital policy Trying to obtain records from [facility] in order to remove isolation precautions FEN: NPO other than crackers/sips, TPN per pharmacy, LR @ 80mL/hr + KCl 20Meq Code status: full code DVT ppx: SCDs Isolation: covid Dispo: PCU (2) Syncope: (3) Abdominal pain, chronic, generalized: (4) Adrenal insufficiency: (5) Chronic malnutrition: (6) Gastroparesis: (7) Gastrostomy tube in place: (8) Intestinal motility disorder: (9) Nausea and vomiting: (10) On total parenteral nutrition (TPN): (11) Severe protein-calorie malnutrition: Admission and Anticipated Discharge Date Admission Date: May 05, 2022 Subjective Patient seen and evaluated at bedside this morning. Overnight, patient reports a one-hour period where her MIXING PLANT OPERATOR ran out of dilaudid, and it took staff an hour to hang more - this led to a severe jump in pain which led to another episode of seizure-like activity, which spontaneously resolved as previous episodes have. Patient notes she had a few crackers yesterday which helped her nausea. Today, patient's pain is improved compared to last night, but is about the same as midday yesterday. Nausea has improved but not resolved. Patient denies fever, CP, SOB, and diarrhea. Physical Exam Physical Exam: Constitutional: tired-appearing, no acute distress CV: regular rate, no murmur, extremities well-perfused Resp: CTABL GI: mild/moderate abdominal tenderness to palpation, ostomy site noted, no surrounding erythema Neuro: alert, oriented, no focal neurologic deficit appreciated Results & Data Results & Data ([facility]) Vital Signs (Past 12 Hours) Vital Signs Temp Pulse Pulse Resp BP Pulse Ox O2 Del Method 05/07/22 02:51 36.7 C 106 H 18 104/72 99 Nasal Cannula 05/06/22 20:00 Nasal Cannula 05/07/22 00:02 88 05/06/22 23:00 36.7 C 89 18 115/80 99 Nasal Cannula 05/06/22 19:53 36.6 C 100 H 18 121/85 100 Nasal Cannula O2 Flow Rate 05/07/22 02:51 2 05/06/22 20:00 2 05/07/22 00:02 05/06/22 23:00 2 05/06/22 19:53 2 Resident Activity Tracking Resident Involvement: Resident Care Provided Care Provided: Adult Hospital Medicine
[2022-05-07 07:58] LABS: Phosphorus 3.6 mg/dl (2.5-4.9)
[2022-05-07] MEDS: GABAPENTIN 250 MG/5 ML 470 ML BTL PO SCH ×3 (08:14→21:39)
[2022-05-07] MEDS: [UNRECOGNIZED DRUG - REMARK] SCH (08:15)
[2022-05-07] MEDS: FLUDROCORTISONE ACETATE 0.1 MG TAB PO SCH ×2 (08:16→20:56)
[2022-05-07] MEDS: HYDROCORTISONE 10 MG TAB PO SCH ×2 (08:17→14:29)
[2022-05-07] MEDS: DULoxetine HCL 60 MG CAP PO SCH (08:17)
[2022-05-07] MEDS: DICYCLOMINE HCL 10 MG CAP PO PRN ×2 (08:17→21:27)
[2022-05-07] MEDS: METHOCARBAMOL 750 MG TABLET PO PRN ×2 (08:17→21:27)
[2022-05-07] MEDS: FAMOTIDINE 20 MG TAB PO SCH ×2 (08:17→20:57)
[2022-05-07] MEDS: PANTOprazole 40 MG TAB PO SCH (08:18)
[2022-05-07] MEDS ORDERED: fentaNYL 12 MCG/HR TDSY TD SCH (09:00)
[2022-05-07] MEDS ORDERED: ONDANSETRON INJ 2 MG/ML 2 ML VIAL IV PRN (11:34)
[2022-05-07] MEDS ORDERED: OPTIRAY 350 100ml IV ONE (13:04)
--- NOTE | 2022-05-07 14:04 | CT Scan Report ---
ABDOMEN AND PELVIS CT WITH IV AND ORAL CONTRAST CT DOSE: 306.68 mGycm HISTORY: ... Abdominal pain. Nausea. Vomiting, extensive GI history TECHNIQUE: Multiaxial CT images of the abdomen and pelvis were performed following the use of intrave nous and oral contrast. A dose lowering technique was utilized adhering to the principles of ALARA. COMPARISON STUDY: Abdomen and pelvis CT 05/05/2022. FINDINGS: Trace bilateral pleural effusions with mild dependent changes within the lung bases. No pne umoperitoneum. No pneumatosis. No acute fractures identified. A percutaneous gastrojejunostomy tube i s in good position. Oral contrast is seen throughout the majority of the small bowel. Patient is stat us post subtotal colectomy with a right lower quadrant ileostomy. No dilated loops of bowel to sugges t an obstruction. Mild thickening and adjacent fat stranding at the distal stomach has slightly impro james. No additional areas of bowel wall thickening identified. No evidence for a bowel obstruction. Pr ior hysterectomy. The ovaries are normal. The bladder is unremarkable. No significant pelvic free flu id. No pelvic lymphadenopathy. Normal caliber abdominal aorta. No retroperitoneal lymphadenopathy. Th e main portal vein is patent. Cholecystectomy. The liver, spleen, kidneys, pancreas, and adrenal glan ds unremarkable. Stable prominence of the common bile duct likely due to the patient's postcholecyste ctomy state. IMPRESSION: 1. Slight improvement in the mild thickening and adjacent fat stranding at the distal stomach. 2. No evidence for bowel obstruction. 3. Trace bilateral pleural effusions. 4. A gastrojejunostomy tube appears in good position. ACT 112: Negative or not required by law. Electronically signed by: Victor Hugo Snowden M.D. 05/07/2022 2:03 PM
[2022-05-07] MEDS ORDERED: [UNRECOGNIZED DRUG - REMARK] ONE (15:00)
[2022-05-07] MEDS: CHECK fentaNYL PATCH PLACEMENT SCH (15:47)
[2022-05-07] MEDS: [UNRECOGNIZED DRUG - REMARK] SCH (15:47)
--- NOTE | 2022-05-07 18:19 | Billing Data ---
Date of Service May 07, 2022 Coding Level of Care Code 54113 Subseq Hosp Care Lvl 3
[2022-05-07] MEDS: ondansetron HCL 8 MG in DEXTROSE 5% 50 ML IV PRN (18:23)
[2022-05-07] MEDS: ACETAMINOPHEN 500 MG TAB PO PRN (18:23)
[2022-05-07] MEDS ORDERED: CENTRAL TPN IV SCH (21:00)
[2022-05-07] MEDS ORDERED: AMINO ACID 8% IV SCH (21:00)
[2022-05-07] MEDS ORDERED: FAT EMUL/SOY/MCT/OLIV/FISH OIL 50 GM/250 ML BAG IV SCH ×2 (21:00)
[2022-05-07] MEDS ORDERED: [UNRECOGNIZED DRUG - OTHER] IV SCH (21:00)
[2022-05-07] MEDS ORDERED: HYDROmorphone INJ 0.5 MG/0.5 ML SYR ONE (21:16)
[2022-05-07] MEDS: MELATONIN 3 MG TAB PO PRN (22:02)
[2022-05-08] MEDS: ACETAMINOPHEN 500 MG TAB PO PRN ×2 (00:28→06:37)
[2022-05-08] MEDS: HYDROmorphone PCA 30 MG/30 ML IV PRN ×2 (00:31→18:24)
[2022-05-08] MEDS: CHECK fentaNYL PATCH PLACEMENT SCH ×4 (00:50→23:52)
[2022-05-08] MEDS: ondansetron HCL 8 MG in DEXTROSE 5% 50 ML IV PRN ×3 (00:50→17:17)
[2022-05-08] MEDS ORDERED: HYDROmorphone INJ 0.5 MG/0.5 ML SYR IV STA ×2 (02:14→23:44)
[2022-05-08] MEDS ORDERED: diphenhydrAMINE 50 MG/ML VIAL IV STA (02:14)
[2022-05-08] MEDS: LORazepam 1 mg IV INJ IV PRN ×4 (04:12→22:31)
--- NOTE | 2022-05-08 06:54 | Hospitalist Progress Note ---
Date of Service May 08, 2022 Assessment & Plan (1) Seizure-like activity: Plan: 32yo female a complex PMH including gastroparesis, SMA syndrome, ileostomy placement, G-tube placement (on TPN), and adrenal insufficiency presents after multiple episodes of seizure-like activity at home, as well as with intractable abdominal pain and nausea. Chronic generalized abdominal pain, extensive GI history -Patient with very extensive GI history including gastroparesis and multiple abdominal surgeries -Awaiting intestinal transplant at [facility], but will hold of until better pain control is achieved. -Lactate elevated on admission, but repeat value (05/05) not elevated -Gentle IVF, electrolyte repletion -Continue bentyl, duloxetine, pepcid, protonix, gabapentin -Continue zofran and ativan staggered for nausea -05/06: CT a/p: mild stranding adjacent to the distal stomach with trace perigastric and perihepatic fluid, possibly postsurgical though gastritis/peptic ulcer disease is within the differential; no pneumoperitoneum; no intussusception; no bowel obstruction; status post subtotal colectomy with right lower quadrant ileostomy -05/07: CT a/p (this time with IV contrast and oral contrast administered via GJ tube): mild improvement in wall thickening and adjacent fat stranding at the distal stomach, no evidence of bowel obstruction, trace BL pleural effusions, GJ tube in positioned -05/08: pain control inadequate; changed BIN FILLER settings to 0.5mg continuous, 0.5mg q15min prn. -Consulted pain management for potential alternative treatments however no alternative recommendations at this time. Seizure-like activity -Patient with multiple episodes of seizure-like activity which seem to be triggered by severe pain -Patient was diagnosed with PNES recently at [facility]; however, suspect symptoms moreso represent vagal activity precipitated by pain -Optimize pain control (as above) -Continue seizure and fall precautions -Recommend following up with PNES clinic at [facility] Severe protein-calorie malnutrition -Secondary to extensive GI pathology -05/06: restarting TPN -Plan to slowly introduce tube feeds pending clinical improvement Adrenal insufficiency -Chronic; hemodynamically stable -Continue hydrocortisone, fludrocortisone Covid -Patient tested positive on 04/18/2022 (at [facility]), repeat PCR on admission still positive -Patient very unlikely to still be contagious, but will implement isolation precautions per hospital policy -Trying to obtain records from [facility] in order to remove isolation precautions FEN: NPO other than crackers/sips, TPN per pharmacy, LR @ 80mL/hr + KCl 20Meq Code status: full code DVT ppx: SCDs Isolation: covid Dispo: PCU. Dispo for home will depend upon adequate pain control as this is most likely the source of her seizure-like activity and syncopal episodes. (2) Syncope: (3) Abdominal pain, chronic, generalized: (4) Adrenal insufficiency: (5) Chronic malnutrition: (6) Gastroparesis: (7) Gastrostomy tube in place: (8) Intestinal motility disorder: (9) Nausea and vomiting: (10) On total parenteral nutrition (TPN): (11) Severe protein-calorie malnutrition: Admission and Anticipated Discharge Date Admission Date: May 05, 2022 Supervising Physician Co-Signing Physician Notes I personally examined the patient and verified all solorzano points of history and exam, discussed case, and agree with decision making with Dr Douglas Pain under reasonable control, but with fairly large narcotic dosing. Notes that she expected significant pain and changing her ostomy bag yesterday, so while she had a fairly prolonged fairly severe episode, she noted it was no surprise to her. Discussed overall game plan of care, she notes that she continues to see what seems to be traction having on her stoma, and really feels like it likely needs to be revised. Also notes that she has significant pain when sitting up with her PEG tube and feels a bit of a burning inside on the PEG tube tract. Vitals noted, in general she is fatigued but no distress. HEENT normocephalic atraumatic mucous membranes moist. Abdomenand not able to examine her stoma directly. Her PEG tube site generally looks intact with no surrounding erythema or exudate, minimally tender to palpation around it. Will consult Pain management if nerve block may help with pain control. Subjective Patient seen at the bedside this morning, stating she had pain last night that was not as controlled. She had 4 episodes of seizure like activity due to the pain last night, first episode lasting the longest at 15-20 minutes. She was given breakthrough pain medication to get ahead of the pain episodes but still had a few more instances and seizure-like activity (3 more episodes past the first) however the latter 3 were not as long in duration. She states she still has pain this morning and wondering if she can get anything for breakthrough. Review of Systems Review of Systems: See HPI Physical Exam Constitutional: WD/WN, vitals as above Eyes: PERRL, conjunctivae normal, anicteric sclerae Respiratory: normal respiratory effort, lungs clear to auscultation Cardiovascular: RRR, no murmur, no edema Gastrointestinal (Abdomen): BS+, soft, mildly tender to palpation, non- distended. Psychiatric: A+Ox3, euthymic affect Results & Data Results & Data ([facility]) Vital Signs (Past 12 Hours) Vital Signs Temp Pulse Resp BP Pulse Ox O2 Del Method O2 Flow Rate 05/08/22 04:00 36.8 C 98 H 18 100/68 98 Room Air 05/07/22 20:20 Room Air 05/07/22 21:12 122 H 8 L 110/72 98 Room Air 05/07/22 22:45 37.2 C 92 H 16 117/81 100 Nasal Cannula 2 05/07/22 19:28 36.9 C 94 H 18 111/76 100 Nasal Cannula 2 Resident Activity Tracking Resident Involvement: Resident Care Provided Care Provided: Adult Hospital Medicine
[2022-05-08 06:55] LABS: Hematocrit (blood only) 24.8 % (34.1-44.9); Hemoglobin 7.9 g/dl (12.0-16.0); Mean Corpuscular Hemoglobin 29.2 pg (25.0-34.0); Mean Corpuscular Hgb Conc 31.9 g/dL (32.0-36.0); Mean Corpuscular Volume 91.5 fL (80.0-100.0); Mean Platelet Volume 10.3 fL (9.4-12.3); Platelet Count 302 K/uL (130-400); RDW Coefficient of Variation 12.6 % (11.5-14.5); RDW Standard Deviation 41.9 fL (36.4-46.3); Red Blood Count 2.71 M/uL (3.93-5.22); White Blood Count 5.45 K/ul (4.8-10.8)
[2022-05-08 07:20] LABS: Alanine Aminotransferase 7 U/L (7-52); Albumin Globulin Ratio 1.7 (0.9-2); Albumin Level 3.3 gm/dl (3.4-5.0); Alkaline Phosphatase 43 U/L (34-104); Anion Gap 1 (3-11); Aspartate Aminotransferase 9 U/L (13-39); BUN Creatinine Ratio 23.3 (10-20); Bilirubin,Total 0.2 mg/dl (0.2-1.0); Blood Urea Nitrogen 10 mg/dl (6-23); Calcium 7.5 mg/dl (8.5-10.1); Carbon Dioxide 34 mmol/L (21-32); Chloride 107 mmol/L (98-107); Creatinine Clr Calc Pharmacy 173.7 ml/min; Est GFR (African American) > 150.0 ml/min; Est GFR (Non-African American) 136.5 ml/min; Globulin 1.9 gm/dl (2.5-4.0); Glucose 98 mg/dl (70-99(Fasting)); Potassium 3.6 mmol/L (3.5-5.1); Sodium 142 mmol/L (136-145); Total Protein 5.2 gm/dl (6.0-8.3)
[2022-05-08] MEDS: [UNRECOGNIZED DRUG - REMARK] SCH (07:48)
[2022-05-08 07:58] LABS: Phosphorus 3.1 mg/dl (2.5-4.9)
[2022-05-08] MEDS: PANTOprazole 40 MG TAB PO SCH (09:23)
[2022-05-08] MEDS: GABAPENTIN 250 MG/5 ML 470 ML BTL PO SCH ×3 (09:23→20:26)
[2022-05-08] MEDS: FLUDROCORTISONE ACETATE 0.1 MG TAB PO SCH ×2 (09:23→20:12)
[2022-05-08] MEDS: FAMOTIDINE 20 MG TAB PO SCH ×2 (09:23→20:12)
[2022-05-08] MEDS: DULoxetine HCL 60 MG CAP PO SCH (09:23)
[2022-05-08] MEDS: HYDROCORTISONE 10 MG TAB PO SCH ×2 (09:23→13:49)
[2022-05-08] MEDS: SODIUM CHLORIDE 0.9% 1000ML 1,000 ML IV SCH (10:44)
--- NOTE | 2022-05-08 12:57 | Pain Management Consultation ---
Date of Consultation May 08, 2022 Assessment & Plan (1) SMAS (superior mesenteric artery syndrome): (2) Epigastric abdominal pain: (3) Abdominal pain, chronic, generalized: (4) Gastrostomy tube in place: (5) Seizure-like activity: Plan 1. No role for interventional pain management at this time. 2. Recommendation no changes to current medication regimen. 3. Recommend follow up at [facility]. 4. Please call with questions. Pain mgt will sign off. History of Present Illness Attending Physician: David Urban History of Present Illness 32yo female with a history of Superior Mesenteric Artery Syndrome, history of a partial colectomy 03/08 [facility], and retirement abdominal pain with new seizure-like activity (PNES) brought on by her abdominal pain lasting from a couple seconds to 6 minutes. She reports sharp, severe, twisting abdominal pain underneath her ostomy. Patient's "seizure like" activity begins when her abdominal pain is severe. Pain currently is 7/10. She is unsure of any benefit from her trigger point injections in november 2021. She is unsure that any change to her current pain medication regimen would be of benefit. Allergies Allergy/AdvReac Type Severity Reaction Status Date / Time adhesive Allergy Severe Redness of Verified 05/02/22 13:45 Skin morphine Allergy Severe Severe Verified 05/02/22 13:45 abdominal Pain, sphincter of oddi spasms amoxicillin Allergy Intermediate RASH Verified 05/02/22 13:45 calcium Allergy Intermediate SEE COMMENT Verified 05/02/22 13:45 [From VIACTIV Multi-Vitamin] cefazolin Allergy Intermediate rash Verified 05/02/22 13:45 Cephalosporins Allergy Intermediate HIVES Verified 05/02/22 13:45 clavulanic acid Allergy Intermediate HIVES Verified 05/02/22 13:45 diphenhydramine Allergy Intermediate Anaphylaxis Verified 05/08/22 07:38 folic acid Allergy Intermediate SEE COMMENT Verified 05/02/22 13:45 [From VIACTIV Multi-Vitamin] iron [From Venofer] Allergy Intermediate Muscle Pain Verified 05/02/22 13:45 multivitamin with minerals Allergy Intermediate SEE COMMENT Verified 05/02/22 13:45 [From VIACTIV Multi-Vitamin] Penicillins Allergy Intermediate HIVES Verified 05/02/22 13:45 prochlorperazine Allergy Intermediate HIVES Verified 05/02/22 13:45 promethazine Allergy Intermediate hives, Verified 05/02/22 13:45 throat swelling sulfamethoxazole Allergy Intermediate RASH Verified 05/02/22 13:45 sumatriptan Allergy Intermediate RASH Verified 05/02/22 13:45 trimethoprim Allergy Intermediate RASH Verified 05/02/22 13:45 metoclopramide AdvReac Severe anxiety/ Verified 05/02/22 13:45 jittery erythromycin base AdvReac Intermediate GI SYMPTOMS Verified 05/02/22 13:45 citalopram [From Celexa] AdvReac Unknown CAN'T Verified 05/02/22 13:45 REMEMBER Home Medications Medication Instructions Recorded Confirmed Type dicyclomine 10 mg capsule 10 - 20 mg PO Q6H PRN Abdominal 03/07/18 05/05/22 History Pain hyoscyamine sulfate 0.125 mg 0.125 mg sublingual Q4H PRN 03/07/18 05/05/22 History sublingual tablet (Levsin/SL) Abdominal Cramping pantoprazole 40 mg tablet,delayed 40 mg PO QAM 09/08/19 05/05/22 History release (Protonix) famotidine 40 mg tablet 20 mg PO BID 11/28/19 05/05/22 History lorazepam 2 mg/mL injection 0.5 mg buccal QID PRN Nausea 12/05/19 05/05/22 History solution (Ativan) hydrocortisone 10 mg tablet 10 - 15 mg PO BID 02/07/20 05/05/22 History ondansetron 4 mg disintegrating 4 mg translingual Q6H PRN Nausea 02/07/20 05/05/22 History tablet trimethobenzamide 300 mg capsule 300 mg PO Q6H PRN Nausea And 02/07/20 05/02/22 History Vomiting fexofenadine 180 mg tablet 180 mg PO PM 10/09/20 05/05/22 History gabapentin 250 mg/5 mL oral 300 mg PO TID 10/09/20 05/05/22 History solution fludrocortisone 0.1 mg tablet See Rx Instructions .Route .COMPLEX 12/12/20 05/05/22 History acetaminophen 500 mg tablet 1,000 mg PO Q6H PRN Pain 06/13/21 05/05/22 History (Tylenol Extra Strength) coenzyme Q10 100 mg capsule 0 mg PO PM 06/13/21 05/05/22 History (CoQ-10) multivitamin with minerals-folic 2 tab PO PM 06/13/21 05/05/22 History acid 200 mcg chewable tablet (Multivitamin Gummies) turmeric 400 mg capsule 400 mg PO PM 06/13/21 05/02/22 History empty container (Enema Misc Bottle) #72 ea 01/16/22 04/02/22 Rx hydromorphone 1 mg/mL oral liquid 2 mg PO Q4H PRN Pain 04/01/22 05/05/22 History cholecalciferol (vitamin D3) 25 50 mcg PO DAILY 04/07/22 05/05/22 History mcg (1,000 unit) capsule (Vitamin D3) duloxetine 60 mg capsule,delayed 60 mg PO DAILY 04/07/22 05/05/22 History release methocarbamol 750 mg tablet 750 mg PO Q8H PRN MUSCLE SPASMS 04/07/22 05/05/22 History Pain History Pain Location Full Body Front + Back: 1. Patient History Medical History Asthma Chronic migraine Colitis Diversion colitis Elevated lipase Endometriosis has had 3 surgeries for this. Last surgery [address] Hemorrhagic cystitis Hypotension Intussusception Pancreatitis PICC (peripherally inserted central catheter) in place TPN SMAS (superior mesenteric artery syndrome) History of SMAS Sphincter of Oddi dysfunction DECREASED GI MOTILITY Transaminitis Uses feeding tube gastroparesis and decreased GI motility can not tolerate feeding and uses TPN UTI (urinary tract infection) Surgical History H/O adenoidectomy H/O laparoscopy H/O lumpectomy right breast 2011 History of appendectomy History of bowel resection Part of duodenum removed due to necrosis; done at [facility] 2019 History of hysterectomy 09/27/19 History of removal of Port-a-Cath 10/13/[address] Geiger, [facility], due to bacteremia/sepsis. History of vascular access device 2018 Hx of colonoscopy during procedure perforated small bowel 10/27/[address] [facility], subsequent repair of duodenal area. Hx of ileostomy Hx of tonsillectomy S/P cholecystectomy 2015 S/P wrist surgery right Family History Father Hyperlipidemia Other No significant family history Social History Smoking Status: Never smoker Second Hand Exposure: No; Hx Alcohol Use: No Hx Substance Use: No Preferred Language: Iranian Communication Ability: Effective Visual Impairment: No Limitations Hearing Ability: Normal Rubber Engraver Required: No Beliefs That Will Affect Care: None marital status: Single Current Living Situation: Parent and Family Current Living Situation Comment: Lives with family. current occupational status: unemployed current occupation: completed 4-year degree at [employer] How many Children do You have: 0 Other Information That Helps Us Care for You: No Feels Safe at Home: Yes Safety Concerns: Feels Safe At This Time Sexual Activity Comment: not sexually active Assistive Devices: None Physical Exam Constitutional: WD/WN, vitals as above no acute distress Gastrointestinal (Abdomen): Percussion/Palpation: + abdomen tender RLQ stoma in situ no discrete trigger points soft
[2022-05-08] MEDS: DICYCLOMINE HCL 10 MG CAP PO PRN ×2 (13:50→20:12)
[2022-05-08] MEDS: [UNRECOGNIZED DRUG - REMARK] SCH (14:46)
[2022-05-08] MEDS: METHOCARBAMOL 750 MG TABLET PO PRN (20:12)
[2022-05-08] MEDS: MELATONIN 3 MG TAB PO PRN (20:25)
[2022-05-08] MEDS ORDERED: FAT EMUL/SOY/MCT/OLIV/FISH OIL 50 GM/250 ML BAG IV SCH (21:00)
[2022-05-08] MEDS ORDERED: CENTRAL TPN IV SCH (21:00)
[2022-05-08] MEDS ORDERED: [UNRECOGNIZED DRUG - OTHER] IV SCH (21:00)
[2022-05-08] MEDS ORDERED: AMINO ACID 8% IV SCH (21:00)
[2022-05-08] MEDS ORDERED: HYDROmorphone INJ 0.5 MG/0.5 ML SYR ONE (23:44)
[2022-05-09] MEDS: LORazepam 1 mg IV INJ IV PRN ×4 (04:32→23:46)
[2022-05-09 06:38] LABS: Basophils # (auto) 0.01 K/uL (0-0.2); Basophils % (auto) 0.2 %; Eosinophils # (auto) 0.13 K/uL (0-0.50); Eosinophils % (auto) 2.7 %; Hematocrit (blood only) 24.9 % (34.1-44.9); Hemoglobin 7.8 g/dl (12.0-16.0); Immature Granulocytes # (auto) 0.01 K/uL (0.00-0.02); Immature Granulocytes % (auto) 0.2 %; Lymphocytes # (auto) 1.31 K/uL (1.2-3.4); Lymphocytes % (auto) 27.1 %; Mean Corpuscular Hemoglobin 28.9 pg (25.0-34.0); Mean Corpuscular Hgb Conc 31.3 g/dL (32.0-36.0); Mean Corpuscular Volume 92.2 fL (80.0-100.0); Mean Platelet Volume 10.3 fL (9.4-12.3); Monocytes # (auto) 0.71 K/uL (0.24-0.82); Monocytes % (auto) 14.7 %; Neutrophils # (auto) 2.67 K/uL (1.4-6.5); Neutrophils % (auto) 55.1 %; Platelet Count 267 K/uL (130-400); RDW Coefficient of Variation 12.7 % (11.5-14.5); RDW Standard Deviation 42.8 fL (36.4-46.3); White Blood Count 4.84 K/ul (4.8-10.8)
--- NOTE | 2022-05-09 06:55 | Hospitalist Progress Note ---
Date of Service May 09, 2022 Assessment & Plan (1) Seizure-like activity: Plan: 32yo female a complex PMH including gastroparesis, SMA syndrome, ileostomy placement, G-tube placement (on TPN), and adrenal insufficiency presents after multiple episodes of seizure-like activity at home, as well as with intractable abdominal pain and nausea. Chronic generalized abdominal pain, extensive GI history -Patient with very extensive GI history including gastroparesis and multiple abdominal surgeries -Awaiting intestinal transplant at [facility], but will hold of until better pain control is achieved. -Lactate elevated on admission, but repeat value (05/05) not elevated -Gentle IVF, electrolyte repletion -Continue bentyl, duloxetine, pepcid, protonix, gabapentin -Continue zofran and ativan staggered for nausea -05/06: CT a/p: mild stranding adjacent to the distal stomach with trace perigastric and perihepatic fluid, possibly postsurgical though gastritis/peptic ulcer disease is within the differential; no pneumoperitoneum; no intussusception; no bowel obstruction; status post subtotal colectomy with right lower quadrant ileostomy -05/07: CT a/p (this time with IV contrast and oral contrast administered via GJ tube): mild improvement in wall thickening and adjacent fat stranding at the distal stomach, no evidence of bowel obstruction, trace BL pleural effusions, GJ tube in positioned -Changed PROSTHODONTIST settings to 0.5mg continuous on 05/08, 0.5mg q15min prn. Increased fentanyl patch from 12mcg to 25mcg for better long acting pain control. Hopefully will be able to wean off PROSTHODONTIST. -Consulted pain management for potential alternative treatments however no alternative recommendations at this time. Seizure-like activity -Patient with multiple episodes of seizure-like activity which seem to be triggered by severe pain -Patient was diagnosed with PNES recently at [facility]; however, suspect symptoms moreso represent vagal activity precipitated by pain -Optimize pain control (as above) -Continue seizure and fall precautions -Recommend following up with PNES clinic at [facility] Severe protein-calorie malnutrition -Secondary to extensive GI pathology -05/06: restarting TPN -Plan to slowly introduce tube feeds pending clinical improvement Adrenal insufficiency -Chronic; hemodynamically stable -Continue hydrocortisone, fludrocortisone Covid -Patient tested positive on 04/18/2022 (at [facility]), repeat PCR on admission still positive -Records from [facility] sent over. Isolation precautions removed. FEN: NPO other than crackers/sips, TPN per pharmacy, LR @ 80mL/hr + KCl 20Meq Code status: full code DVT ppx: SCDs Isolation: covid Dispo: PCU. Dispo for home will depend upon adequate pain control as this is most likely the source of her seizure-like activity and syncopal episodes. (2) Syncope: (3) Abdominal pain, chronic, generalized: (4) Adrenal insufficiency: (5) Chronic malnutrition: (6) Gastroparesis: (7) Gastrostomy tube in place: (8) Intestinal motility disorder: (9) Nausea and vomiting: (10) On total parenteral nutrition (TPN): (11) Severe protein-calorie malnutrition: Admission and Anticipated Discharge Date Admission Date: May 05, 2022 Supervising Physician Co-Signing Physician Notes I personally examined the patient and verified all solorzano points of history and exam, discussed case, and agree with decision making with Dr Douglas Pain under reasonable control, but with fairly large narcotic dosing. Notes that she expected significant pain and changing her ostomy bag yesterday, so while she had a fairly prolonged fairly severe episode, she noted it was no surprise to her. Discussed overall game plan of care, she notes that she continues to see what seems to be traction having on her stoma, and really feels like it likely needs to be revised. Also notes that she has significant pain when sitting up with her PEG tube and feels a bit of a burning inside on the PEG tube tract. Vitals noted, in general she is fatigued but no distress. HEENT normocephalic atraumatic mucous membranes moist. Abdomenand not able to examine her stoma directly. Her PEG tube site generally looks intact with no surrounding erythema or exudate, minimally tender to palpation around it. D/w pain management. Patient is anot a candidate for any intervention regarding her pain. Recommends f/u with Surgery at [facility]. will increase fentanyl. Subjective Patient seen at the bedside this morning saying she had 2 episodes of extreme pain over night (once at around 2300 and another around 6:30 this morning). She states that yesterday was relatively better for her with the continuous infusion running and did not go for the PRN PROSTHODONTIST clicks as frequently. She states her nausea is under control today and she was actually hungry last night and ate more snacks. She states her morning episode of pain was pretty bad and still lingering at the time of discussion. Review of Systems Review of Systems: See HPI Physical Exam Constitutional: WD/WN, vitals as above Eyes: PERRL, conjunctivae normal, anicteric sclerae Respiratory: normal respiratory effort, lungs clear to auscultation Cardiovascular: RRR, no murmur, no edema Gastrointestinal (Abdomen): BS+, soft, mildly tender to palpation, ostomy bag in place. Psychiatric: A+Ox3, euthymic affect Results & Data Results & Data ([facility]) Vital Signs (Past 12 Hours) Vital Signs Temp Pulse Pulse Resp BP Pulse Ox O2 Del Method 05/09/22 06:50 36.7 C 111 H 22 133/75 97 Nasal Cannula 05/09/22 06:35 36.8 C 97 H 18 102/67 100 Nasal Cannula 05/09/22 02:00 36.6 C 84 18 113/78 100 Nasal Cannula 05/09/22 00:26 119 H 05/08/22 23:48 36.8 C 101 H 12 125/82 96 Room Air 05/08/22 23:39 111 H 24 94 Nasal Cannula 05/08/22 22:50 36.7 C 109 H 20 113/78 98 Nasal Cannula 05/08/22 19:00 36.6 C 85 20 110/71 100 Nasal Cannula O2 Flow Rate 05/09/22 06:50 2 05/09/22 06:35 2 05/09/22 02:00 05/09/22 00:26 05/08/22 23:48 4 05/08/22 23:39 4 05/08/22 22:50 05/08/22 19:00 1 Resident Activity Tracking Resident Involvement: Resident Care Provided Care Provided: Adult Hospital Medicine
[2022-05-09 07:12] LABS: RBC Morphology Unremarkable
[2022-05-09 07:18] LABS: Alanine Aminotransferase 6 U/L (7-52); Albumin Globulin Ratio 1.7 (0.9-2); Albumin Level 3.3 gm/dl (3.4-5.0); Alkaline Phosphatase 42 U/L (34-104); Anion Gap 3 (3-11); Aspartate Aminotransferase 9 U/L (13-39); Bilirubin,Total 0.1 mg/dl (0.2-1.0); Blood Urea Nitrogen 9 mg/dl (6-23); Calcium 7.6 mg/dl (8.5-10.1); Carbon Dioxide 33 mmol/L (21-32); Chloride 107 mmol/L (98-107); Creatinine Clr Calc Pharmacy 165.9 ml/min; Est GFR (African American) > 150.0 ml/min; Est GFR (Non-African American) 134.5 ml/min; Globulin 1.9 gm/dl (2.5-4.0); Glucose 106 mg/dl (70-99(Fasting)); Potassium 3.7 mmol/L (3.5-5.1); Sodium 143 mmol/L (136-145); Total Protein 5.2 gm/dl (6.0-8.3)
[2022-05-09] MEDS: CHECK fentaNYL PATCH PLACEMENT SCH ×2 (07:31→15:31)
[2022-05-09 08:21] LABS: Phosphorus 2.9 mg/dl (2.5-4.9)
[2022-05-09] MEDS: ondansetron HCL 8 MG in DEXTROSE 5% 50 ML IV PRN ×3 (08:28→20:28)
[2022-05-09] MEDS: [UNRECOGNIZED DRUG - REMARK] SCH (08:28)
[2022-05-09] MEDS: DULoxetine HCL 60 MG CAP PO SCH (08:29)
[2022-05-09] MEDS: FAMOTIDINE 20 MG TAB PO SCH ×2 (08:29→20:16)
[2022-05-09] MEDS: FLUDROCORTISONE ACETATE 0.1 MG TAB PO SCH ×2 (08:29→20:17)
[2022-05-09] MEDS: PANTOprazole 40 MG TAB PO SCH (08:29)
[2022-05-09] MEDS: GABAPENTIN 250 MG/5 ML 470 ML BTL PO SCH ×3 (08:30→20:15)
[2022-05-09] MEDS: HYDROCORTISONE 10 MG TAB PO SCH ×2 (08:30→13:51)
[2022-05-09] MEDS: DICYCLOMINE HCL 10 MG CAP PO PRN ×2 (08:31→20:16)
[2022-05-09] MEDS ORDERED: HYDROmorphone INJ 0.5 MG/0.5 ML SYR IV STA ×2 (10:12→23:30)
[2022-05-09] MEDS: ACETAMINOPHEN 500 MG TAB PO PRN (10:21)
[2022-05-09] MEDS: fentaNYL 25 MCG/HR TDSY TD SCH (12:18)
[2022-05-09] MEDS: SODIUM CHLORIDE 0.9% 1000ML 1,000 ML IV SCH (12:19)
[2022-05-09] MEDS: [UNRECOGNIZED DRUG - REMARK] SCH (14:33)
[2022-05-09] MEDS: HYDROmorphone PCA 30 MG/30 ML IV PRN (19:44)
[2022-05-09] MEDS: METHOCARBAMOL 750 MG TABLET PO PRN (20:16)
[2022-05-09] MEDS: MELATONIN 3 MG TAB PO PRN (20:26)
[2022-05-09] MEDS ORDERED: AMINO ACID 8% IV SCH (21:00)
[2022-05-09] MEDS ORDERED: [UNRECOGNIZED DRUG - OTHER] IV SCH (21:00)
[2022-05-09] MEDS ORDERED: CENTRAL TPN IV SCH (21:00)
[2022-05-09] MEDS ORDERED: HYDROmorphone INJ 0.5 MG/0.5 ML SYR ONE (23:37)
[2022-05-10] MEDS ORDERED: FAT EMUL/SOY/MCT/OLIV/FISH OIL 50 GM/250 ML BAG IV SCH
[2022-05-10] MEDS: CHECK fentaNYL PATCH PLACEMENT SCH ×3 (00:53→16:21)
[2022-05-10] MEDS ORDERED: HYDROmorphone INJ 0.5 MG/0.5 ML SYR IV STA ×3 (03:02→17:56)
[2022-05-10] MEDS: ondansetron HCL 8 MG in DEXTROSE 5% 50 ML IV PRN ×3 (03:13→22:44)
[2022-05-10] MEDS: LORazepam 1 mg IV INJ IV PRN ×3 (06:38→19:27)
--- NOTE | 2022-05-10 07:40 | Hospitalist Progress Note ---
Date of Service May 10, 2022 Assessment & Plan (1) Seizure-like activity: Plan: 32yo female a complex PMH including gastroparesis, SMA syndrome, ileostomy placement, G-tube placement (on TPN), and adrenal insufficiency presents after multiple episodes of seizure-like activity at home, as well as with intractable abdominal pain and nausea. Chronic generalized abdominal pain, extensive GI history -Patient with very extensive GI history including gastroparesis and multiple abdominal surgeries -Awaiting intestinal transplant at [facility], but will hold of until better pain control is achieved. -Lactate elevated on admission, but repeat value (05/05) not elevated -Gentle IVF, electrolyte repletion -Continue bentyl, duloxetine, pepcid, protonix, gabapentin -Continue zofran and ativan staggered for nausea -05/06: CT a/p: mild stranding adjacent to the distal stomach with trace perigastric and perihepatic fluid, possibly postsurgical though gastritis/peptic ulcer disease is within the differential; no pneumoperitoneum; no intussusception; no bowel obstruction; status post subtotal colectomy with right lower quadrant ileostomy -05/07: CT a/p (this time with IV contrast and oral contrast administered via GJ tube): mild improvement in wall thickening and adjacent fat stranding at the distal stomach, no evidence of bowel obstruction, trace BL pleural effusions, GJ tube in positioned -Changed STACK ATTENDANT settings to 0.5mg continuous on 05/08, 0.5mg q15min prn. Increased fentanyl patch from 12mcg to 25mcg for better long acting pain control. Hopefully will be able to wean off STACK ATTENDANT. -Over past 24 hours patient has received 12mg (continuous STACK ATTENDANT), 29.32mg (STACK ATTENDANT clicks, self regulated), 2.5mg (fentanyl patch equivalent), 2mg from break through doses for a total equivalent of 45.82mg of IV dilaudid over past 24 hours. -Discussed stopping continuous 05/10 however given another episode after discussion will hold off for today. Patient's dog allowed to visit her in hospital now, hopefully will help with pain -Consulted pain management for potential alternative treatments however no alternative recommendations at this time. Seizure-like activity -Patient with multiple episodes of seizure-like activity which seem to be triggered by severe pain -Patient was diagnosed with PNES recently at [facility]; however, suspect symptoms moreso represent vagal activity precipitated by pain -Optimize pain control (as above) -Continue seizure and fall precautions -Recommend following up with PNES clinic at [facility] Severe protein-calorie malnutrition -Secondary to extensive GI pathology -05/06: restarting TPN -Plan to slowly introduce tube feeds pending clinical improvement Adrenal insufficiency -Chronic; hemodynamically stable -Continue hydrocortisone, fludrocortisone Covid -Patient tested positive on 04/18/2022 (at [facility]), repeat PCR on admission still positive -Records from [facility] sent over. Isolation precautions removed. FEN: NPO other than crackers/sips, TPN per pharmacy, LR @ 80mL/hr + KCl 20Meq Code status: full code DVT ppx: SCDs Isolation: covid Dispo: PCU. Dispo for home will depend upon adequate pain control as this is most likely the source of her seizure-like activity and syncopal episodes. (2) Syncope: (3) Abdominal pain, chronic, generalized: (4) Adrenal insufficiency: (5) Chronic malnutrition: (6) Gastroparesis: (7) Gastrostomy tube in place: (8) Intestinal motility disorder: (9) Nausea and vomiting: (10) On total parenteral nutrition (TPN): (11) Severe protein-calorie malnutrition: Admission and Anticipated Discharge Date Admission Date: May 05, 2022 Supervising Physician Co-Signing Physician Notes I personally examined the patient and verified all solorzano points of history and exam, discussed case, and agree with decision making with Dr Douglas Pain under reasonable control, but with fairly large narcotic dosing. Notes that she expected significant pain and changing her ostomy bag yesterday, so while she had a fairly prolonged fairly severe episode, she noted it was no surprise to her. Discussed overall game plan of care, she notes that she continues to see what seems to be traction having on her stoma, and really feels like it likely needs to be revised. Also notes that she has significant pain when sitting up with her PEG tube and feels a bit of a burning inside on the PEG tube tract. Vitals noted, in general she is fatigued but no distress. HEENT normocephalic atraumatic mucous membranes moist. Abdomenand not able to examine her stoma directly. Her PEG tube site generally looks intact with no surrounding erythema or exudate, minimally tender to palpation around it. D/w pain management. Patient is a not a candidate for any intervention regarding her pain. Recommends f/u with Surgery at [facility]. Pain appears controlled on the increased fentanyl dosing. will continue to monitor Subjective Patient seen at the bedside this morning saying yesterday was not as bad for her however did have 2 episodes last night that were painful and caused the episodes. We discussed stopping continuous STACK ATTENDANT and keeping the as needed ontop of the fentanyl patch. We were going to trial stopping continuous during the day however an hour or so after discussing this patient had another episode of pain that required breakthrough 0.5mg of dilaudid. Review of Systems Review of Systems: See HPI Physical Exam Constitutional: WD/WN, vitals as above Eyes: PERRL, conjunctivae normal, anicteric sclerae Respiratory: normal respiratory effort, lungs clear to auscultation Cardiovascular: RRR, no murmur, no edema Gastrointestinal (Abdomen): BS+, soft, mildly tender to palpation, non- distended, ostomy in place. Psychiatric: A+Ox3, euthymic affect Results & Data Results & Data ([facility]) Vital Signs (Past 12 Hours) Vital Signs Temp Pulse Pulse Resp BP BP Pulse Ox 05/10/22 07:00 36.4 C L 95 H 20 119/83 100 05/10/22 03:02 36.9 C 106 H 16 113/78 99 05/10/22 00:00 98 H 05/09/22 23:10 115 H 114/82 98 05/09/22 23:00 36.7 C 93 H 18 134/85 100 05/09/22 19:42 100 H 12 119/82 100 O2 Del Method O2 Flow Rate 05/10/22 07:00 Nasal Cannula 05/10/22 03:02 Nasal Cannula 2 05/10/22 00:00 05/09/22 23:10 Nasal Cannula 4 05/09/22 23:00 Nasal Cannula 05/09/22 19:42 Nasal Cannula 4
[2022-05-10] MEDS: [UNRECOGNIZED DRUG - REMARK] SCH (08:05)
[2022-05-10] MEDS: FLUDROCORTISONE ACETATE 0.1 MG TAB PO SCH ×2 (08:14→20:11)
[2022-05-10] MEDS: DULoxetine HCL 60 MG CAP PO SCH (08:15)
[2022-05-10] MEDS: FAMOTIDINE 20 MG TAB PO SCH ×2 (08:15→20:11)
[2022-05-10] MEDS: HYDROCORTISONE 10 MG TAB PO SCH ×2 (08:16→13:56)
[2022-05-10] MEDS: DICYCLOMINE HCL 10 MG CAP PO PRN ×2 (08:17→20:10)
[2022-05-10] MEDS: METHOCARBAMOL 750 MG TABLET PO PRN ×2 (08:18→20:11)
[2022-05-10] MEDS: PANTOprazole 40 MG TAB PO SCH (08:18)
[2022-05-10] MEDS: GABAPENTIN 250 MG/5 ML 470 ML BTL PO SCH ×3 (08:24→20:09)
[2022-05-10] MEDS: HYDROmorphone PCA 30 MG/30 ML IV PRN ×2 (11:05→18:56)
[2022-05-10] MEDS: [UNRECOGNIZED DRUG - REMARK] SCH (15:13)
[2022-05-10] MEDS: MELATONIN 3 MG TAB PO PRN (20:09)
[2022-05-10] MEDS ORDERED: AMINO ACID 8% IV SCH (21:00)
[2022-05-10] MEDS ORDERED: CENTRAL TPN IV SCH (21:00)
[2022-05-10] MEDS ORDERED: [UNRECOGNIZED DRUG - OTHER] IV SCH (21:00)
[2022-05-11] MEDS ORDERED: FAT EMUL/SOY/MCT/OLIV/FISH OIL 50 GM/250 ML BAG IV SCH
[2022-05-11] MEDS ORDERED: HYDROmorphone INJ 0.5 MG/0.5 ML SYR IV STA ×3 (00:32→23:23)
[2022-05-11] MEDS: CHECK fentaNYL PATCH PLACEMENT SCH ×3 (00:48→15:26)
[2022-05-11] MEDS: LORazepam 1 mg IV INJ IV PRN ×4 (01:25→19:26)
[2022-05-11] MEDS: HYDROmorphone PCA 30 MG/30 ML IV PRN ×3 (06:07→23:30)
[2022-05-11] MEDS: DICYCLOMINE HCL 10 MG CAP PO PRN ×3 (06:13→22:07)
[2022-05-11] MEDS: ondansetron HCL 8 MG in DEXTROSE 5% 50 ML IV PRN ×3 (06:30→21:40)
[2022-05-11 07:46] LABS: Anion Gap 4 (3-11); BUN Creatinine Ratio 26.1 (10-20); Blood Urea Nitrogen 12 mg/dl (6-23); Calcium 7.8 mg/dl (8.5-10.1); Carbon Dioxide 31 mmol/L (21-32); Chloride 107 mmol/L (98-107); Creatinine Clr Calc Pharmacy 166.8 ml/min; Est GFR (African American) > 150.0 ml/min; Est GFR (Non-African American) 133.5 ml/min; Glucose 109 mg/dl (70-99(Fasting)); Potassium 3.5 mmol/L (3.5-5.1); Sodium 142 mmol/L (136-145)
--- NOTE | 2022-05-11 07:50 | Hospitalist Progress Note ---
Date of Service May 11, 2022 Assessment & Plan (1) Seizure-like activity: Plan: 32yo female a complex PMH including gastroparesis, SMA syndrome, ileostomy placement, G-tube placement (on TPN), and adrenal insufficiency presents after multiple episodes of seizure-like activity at home, as well as with intractable abdominal pain and nausea. Chronic generalized abdominal pain, extensive GI history -Patient with very extensive GI history including gastroparesis and multiple abdominal surgeries -Awaiting intestinal transplant at [facility], but will hold of until better pain control is achieved. -Lactate elevated on admission, but repeat value (05/05) not elevated -Gentle IVF, electrolyte repletion -Continue bentyl, duloxetine, pepcid, protonix, gabapentin. Continue zofran and ativan staggered for nausea -05/06: CT a/p: mild stranding adjacent to the distal stomach with trace perigastric and perihepatic fluid, possibly postsurgical though gastritis/peptic ulcer disease is within the differential; no pneumoperitoneum; no intussusception; no bowel obstruction; status post subtotal colectomy with right lower quadrant ileostomy -05/07: CT a/p (this time with IV contrast and oral contrast administered via GJ tube): mild improvement in wall thickening and adjacent fat stranding at the distal stomach -Changed TRACK MACHINE OPERATOR REPAIRER settings to 0.5mg continuous on 05/08, 0.5mg q15min prn. Increased fentanyl patch from 12mcg to 25mcg for better long acting pain control. Hopefully will be able to wean off TRACK MACHINE OPERATOR REPAIRER. -Over past 24 hours patient has received 12mg (continuous TRACK MACHINE OPERATOR REPAIRER), 32.36mg (TRACK MACHINE OPERATOR REPAIRER clicks, self regulated), 2.5mg (fentanyl patch equivalent), 1.5mg from break through doses for a total equivalent of 48.36mg of IV dilaudid over past 24 hours. Previous 24 hours was 45.92mg IV diluadid equivalents. -Consulted pain management for potential alternative treatments however no alternative recommendations at this time. -Triggers for patient's pain mostly isolated to moving G-J tube or ostomy site. May likely be caused by adhesional traction of stoma. Will need to discuss with patient's surgeon at [facility] if willing to see her for this, if not may engage local surgeon for opinion on the matter. Seizure-like activity -Patient with multiple episodes of seizure-like activity which seem to be triggered by severe pain -Patient was diagnosed with PNES recently at [facility]; however, suspect symptoms moreso represent vagal activity precipitated by pain -Optimize pain control (as above) -Continue seizure and fall precautions -Recommend following up with PNES clinic at [facility] Severe protein-calorie malnutrition -Secondary to extensive GI pathology -05/06: restarting TPN -Plan to slowly introduce tube feeds pending clinical improvement Adrenal insufficiency -Chronic; hemodynamically stable -Continue hydrocortisone, fludrocortisone Covid - Resolved -Patient tested positive on 04/18/2022 (at [facility]), repeat PCR on admission still positive -Records from [facility] sent over. Isolation precautions removed. FEN: NPO other than crackers/sips, TPN per pharmacy, LR @ 80mL/hr + KCl 20Meq Code status: full code DVT ppx: SCDs Isolation: covid Dispo: PCU. Dispo for home will depend upon adequate pain control as this is most likely the source of her seizure-like activity and syncopal episodes. (2) Syncope: (3) Abdominal pain, chronic, generalized: (4) Adrenal insufficiency: (5) Chronic malnutrition: (6) Gastroparesis: (7) Gastrostomy tube in place: (8) Intestinal motility disorder: (9) Nausea and vomiting: (10) On total parenteral nutrition (TPN): (11) Severe protein-calorie malnutrition: Admission and Anticipated Discharge Date Admission Date: May 05, 2022 Supervising Physician Co-Signing Physician Notes I personally examined the patient and verified all solorzano points of history and e xam, discussed case, and agree with decision making with Dr Douglas Pain under reasonable control, but with fairly large narcotic dosing. Notes that she expected significant pain and changing her ostomy bag yesterday, so while she had a fairly prolonged fairly severe episode, she noted it was no surprise to her. Discussed overall game plan of care, she notes that she continues to see what seems to be traction having on her stoma, and really feels like it likely needs to be revised. Also notes that she has significant pain when sitting up with her PEG tube and feels a bit of a burning inside on the PEG tube tract. Vitals noted, in general she is fatigued but no distress. HEENT normocephalic atraumatic mucous membranes moist. Abdomenand not able to examine her stoma directly, as her ostomy bag is opaque, and given that she will have significant pain with a change, will did not want to provoke a pain/fainting/PNES episode at this time. Nursing described it welland noted that it did not appear normal by any stretch. Her PEG tube site generally looks intact with no surrounding erythema or exudate, minimally tender to palpation around it. Abdominal pain, "seizure-like activity"really I think the abdominal pain being uncontrolled is what is driving all of this, and whether the episodes are all vagal with myoclonic jerks, PNES, or some combination of the 2it really seems like controlling the abdominal pain is the main factor here. 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 As far as the discomfort/burning at her PEG tube site, it examines grossly normal. With common things being common, we will initiate treatment with nystatin powder in case there is a bit of an intertrigo on the tract. At the same time, given the proximity of her PEG to her stoma, and my high suspicion of adhesions traction in her stoma, I really suspect that probably what she is feeling is pain from those same adhesions when she moves, with her PEG tube just translating pressure across her abdomen (given that they are in such close proximity and she is so thin/frail). I do think (and have communicated with her PCP who agrees) that she will likely need some type of chronic pain management plan at discharge. Given that it is unfortunately likely that a surgical approach/lysis of adhesions/ostomy revision is likely to be needed, tomorrow when her regular team is back on staff, we will need to reach out to her surgeon at the [facility] and discuss her case to see if he would be willing to see her from a surgical perspective. If not, then may need to ask local surgery to evaluate her at least for an opinion Malnutritionin theory and agree with [facility] that given that her intestines work, tube feeds would make the most sense. That said, she has tried to subsist on tube feeds alone for the last several months, and probably has only made it to 50% of her nutritional goal on a good day. Given her severe protein calorie malnutrition/and worsening malnutrition, continue TPN, and I am hard pressed to come up with a more viable plan and then at least utilizing home TPN to maintain her nutritional status until she is better able to tolerate tube feeds at closer to/at goal. She understands risk/benefit of this approach, and agrees. Subjective Patient seen at the bedside this morning saying she had another episode of extreme pain and seizure-like activity when changing out the ostomy bag. She says she feels like that is the biggest trigger to her episodes. Review of Systems Review of Systems: See HPI Physical Exam Constitutional: WD/WN, vitals as above Eyes: PERRL, conjunctivae normal, anicteric sclerae Respiratory: normal respiratory effort, lungs clear to auscultation Cardiovascular: RRR, no murmur, no edema Psychiatric: A+Ox3, euthymic affect Results & Data Results & Data ([facility]) Vital Signs (Past 12 Hours) Vital Signs Temp Pulse Pulse Resp BP BP Pulse Ox 05/11/22 07:11 36.6 C 84 18 112/79 100 05/11/22 00:30 36.5 C 98 H 22 133/75 100 05/11/22 02:56 36.6 C 83 18 100/66 100 05/10/22 23:05 104 H 05/10/22 23:00 36.5 C 106 H 18 125/85 100 O2 Del Method O2 Flow Rate 05/11/22 07:11 Room Air 05/11/22 00:30 Nasal Cannula 2 05/11/22 02:56 Nasal Cannula 05/10/22 23:05 05/10/22 23:00 Nasal Cannula Resident Activity Tracking Resident Involvement: Resident Care Provided Care Provided: Adult Hospital Medicine
[2022-05-11] MEDS: HYDROCORTISONE 10 MG TAB PO SCH ×2 (08:14→13:22)
[2022-05-11] MEDS: PANTOprazole 40 MG TAB PO SCH (08:14)
[2022-05-11] MEDS: GABAPENTIN 250 MG/5 ML 470 ML BTL PO SCH ×3 (08:14→20:10)
[2022-05-11] MEDS: METHOCARBAMOL 750 MG TABLET PO PRN ×2 (08:15→17:06)
[2022-05-11] MEDS: FLUDROCORTISONE ACETATE 0.1 MG TAB PO SCH ×2 (08:15→20:09)
[2022-05-11] MEDS: DULoxetine HCL 60 MG CAP PO SCH (08:16)
[2022-05-11] MEDS: [UNRECOGNIZED DRUG - REMARK] SCH (08:16)
[2022-05-11] MEDS: FAMOTIDINE 20 MG TAB PO SCH ×2 (08:16→20:09)
[2022-05-11] MEDS: SODIUM CHLORIDE 0.9% 1000ML 1,000 ML IV SCH (10:26)
[2022-05-11] MEDS: [UNRECOGNIZED DRUG - REMARK] SCH (15:26)
--- NOTE | 2022-05-11 15:30 | Billing Data ---
Date of Service May 11, 2022 Coding Level of Care Code 93722 Subseq Hosp Care Lvl 3
[2022-05-11] MEDS: ACETAMINOPHEN 500 MG TAB PO PRN (16:24)
[2022-05-11] MEDS: HEPARIN 100 UNIT/ML 5ML FLUSH FLUSH PRN (20:09)
[2022-05-11] MEDS: MELATONIN 3 MG TAB PO PRN (20:09)
[2022-05-11] MEDS: NYSTATIN POWDER 15GM BTL EXT SCH (20:10)
[2022-05-11] MEDS ORDERED: AMINO ACID 8% IV SCH (21:00)
[2022-05-11] MEDS ORDERED: CENTRAL TPN IV SCH (21:00)
[2022-05-11] MEDS ORDERED: [UNRECOGNIZED DRUG - OTHER] IV SCH (21:00)
[2022-05-11] MEDS: HYOSCYAMINE SULFATE 0.125 MG TAB SL PRN (23:12)
[2022-05-12] MEDS ORDERED: FAT EMUL/SOY/MCT/OLIV/FISH OIL 50 GM/250 ML BAG IV SCH
[2022-05-12] MEDS: CHECK fentaNYL PATCH PLACEMENT SCH ×3 (00:22→16:25)
[2022-05-12] MEDS: METHOCARBAMOL 750 MG TABLET PO PRN ×3 (01:20→21:07)
[2022-05-12] MEDS: LORazepam 1 mg IV INJ IV PRN ×3 (01:20→16:30)
[2022-05-12] MEDS: ondansetron HCL 8 MG in DEXTROSE 5% 50 ML IV PRN ×3 (03:54→20:10)
[2022-05-12] MEDS: DICYCLOMINE HCL 10 MG CAP PO PRN ×2 (06:15→21:07)
[2022-05-12] MEDS: ACETAMINOPHEN 500 MG TAB PO PRN (06:15)
--- NOTE | 2022-05-12 06:52 | Hospitalist Progress Note ---
Date of Service May 12, 2022 Assessment & Plan (1) Seizure-like activity: Plan: 32yo female a complex PMH including gastroparesis, SMA syndrome, ileostomy placement, G-tube placement (on TPN), and adrenal insufficiency presents after multiple episodes of seizure-like activity at home, as well as with intractable abdominal pain and nausea. Chronic generalized abdominal pain, extensive GI history -Patient with very extensive GI history including gastroparesis and multiple abdominal surgeries -Awaiting intestinal transplant at [facility], but will hold of until better pain control is achieved. -Lactate elevated on admission, but repeat value (05/05) not elevated -Gentle IVF, electrolyte repletion -Continue bentyl, duloxetine, pepcid, protonix, gabapentin. Continue zofran and ativan staggered for nausea -05/06: CT a/p: mild stranding adjacent to the distal stomach with trace perigastric and perihepatic fluid, possibly postsurgical though gastritis/peptic ulcer disease is within the differential; no pneumoperitoneum; no intussusception; no bowel obstruction; status post subtotal colectomy with right lower quadrant ileostomy -05/07: CT a/p (this time with IV contrast and oral contrast administered via GJ tube): mild improvement in wall thickening and adjacent fat stranding at the distal stomach -Changed GRID CASTING MACHINE OPERATOR HELPER settings to 0.5mg continuous on 05/08, 0.5mg q15min prn. Increased fentanyl patch from 12mcg to 25mcg for better long acting pain control. Hopefully will be able to wean off GRID CASTING MACHINE OPERATOR HELPER. -Over past 24 hours patient has received 12mg (continuous GRID CASTING MACHINE OPERATOR HELPER), 35.24mg (GRID CASTING MACHINE OPERATOR HELPER clicks, self regulated), 2.5mg (fentanyl patch equivalent), 1.0mg from break through doses for a total equivalent of 50.74mg of IV dilaudid over past 24 hours. Previous 24 hours was 48.36mg IV diluadid equivalents. -If patient willing will attempt increase in fentanyl to 50mcg while going down on continuous dilaudid on GRID CASTING MACHINE OPERATOR HELPER. -Consulted pain management for potential alternative treatments however no alternative recommendations at this time. -Triggers for patient's pain mostly isolated to moving G-J tube or ostomy site. May likely be caused by adhesional traction of stoma. Will need to discuss with patient's surgeon at [facility] if willing to see her for this, if not may engage local surgeon for opinion on the matter. Seizure-like activity -Patient with multiple episodes of seizure-like activity which seem to be triggered by severe pain -Patient was diagnosed with PNES recently at [facility]; however, suspect symptoms moreso represent vagal activity precipitated by pain -Optimize pain control (as above) -Continue seizure and fall precautions -Recommend following up with PNES clinic at [facility] Severe protein-calorie malnutrition -Secondary to extensive GI pathology -05/06: restarting TPN -Plan to slowly introduce tube feeds pending clinical improvement Adrenal insufficiency -Chronic; hemodynamically stable -Continue hydrocortisone, fludrocortisone Covid - Resolved -Patient tested positive on 04/18/2022 (at [facility]), repeat PCR on admission still positive -Records from [facility] sent over. Isolation precautions removed. FEN: NPO other than crackers/sips, TPN per pharmacy, LR @ 80mL/hr + KCl 20Meq Code status: full code DVT ppx: SCDs Isolation: covid Dispo: PCU. Dispo for home will depend upon adequate pain control as this is most likely the source of her seizure-like activity and syncopal episodes. (2) Syncope: (3) Abdominal pain, chronic, generalized: (4) Adrenal insufficiency: (5) Chronic malnutrition: (6) Gastroparesis: (7) Gastrostomy tube in place: (8) Intestinal motility disorder: (9) Nausea and vomiting: (10) On total parenteral nutrition (TPN): (11) Severe protein-calorie malnutrition: Admission and Anticipated Discharge Date Admission Date: May 05, 2022 Supervising Physician Co-Signing Physician Notes Patient seen and examined with PGY-2 Dr. Douglas. Agree with history, exam findings, assessment and plan of care as outlined. In brief, Pilar is a 32-year-old female with hx of gastroparesis, SMA syndrome, ileostomy placement, G-tube on TPN, and adrenal insufficiency admitted with seizure-like at home, intractable abdominal pain and nausea. Today, pain is slightly better. Although continues to require dilaudid GRID CASTING MACHINE OPERATOR HELPER + fentanyl patch. Concerns about pain and redness along with opaque appearing discharge around the G-J tube site. Thinks this may be the start of infection. No fevers. VS and nursing notes reviewed. Sitting up in bed doing a puzzle with her dad. Conversational. Tender around the GJ site, no drainage on my exam. Small amount of blood in the gauze. There is an area of swelling and tenderness immediately inferior to the GJ site. Labs and imaging reviewed. 1. Chronic generalized abdominal pain in the setting of complex GI history. History of gastroparesis, and abdominal surgeries. Following with physicians at [facility], awaiting intestinal transplant. GRID CASTING MACHINE OPERATOR HELPER with dilaudid (0.5mg continuous, 0.5mg q15min PRN), fentanyl 25mcg. She is willing to try to attempt to transition away from the GRID CASTING MACHINE OPERATOR HELPER. Plan for tomorrow morning is to increase fentanyl patch and decrease or stop continuous dilaudid. Ok to continue with bolus dilaudid in the GRID CASTING MACHINE OPERATOR HELPER. 2. Seizure-like activity. Previous diagnosis of PNES at [facility]. Associated with pain. Becoming less frequent and less long lasting now that pain is slowly improving. 3. Cellulitis around GJ site. Start Keflex. She has had this antibiotic in the past without rash or other allergic type symptoms. 4. Adrenal insufficiency. Continue hydrocortisone, fludrocortisone. No stress doses needed right now. 5. Hx of COVID. Positive on 04/18/22PCR on admission was positive. Dispo: pending clinical improvement. Subjective Patient seen at the bedside this morning saying that she has noticed some worsening of the skin around the PEG tube. She has had some reddening around the area, increased pain, as well as some bleeding at the area last night. She says this is all what happens when she has an infection of the area; usually she calls her PCP who is able to get her a course of Keflex. Keflex usually helps knock out the infection. She denies any current nausea, vomiting, fevers, chills. Discussed starting Keflex with patient, she stated she has not had any side effects from past treatments. We also discussed if she is up for it tomorrow morning we can bring her fentanyl patch up to 50mcg and lower or stop the continuous. Review of Systems Review of Systems: See HPI Physical Exam Constitutional: WD/WN, vitals as above Eyes: PERRL, conjunctivae normal, anicteric sclerae Respiratory: normal respiratory effort, lungs clear to auscultation Cardiovascular: RRR, no murmur, no edema Gastrointestinal (Abdomen): PEG tube in place however today with more erythema at the surrounding skin, tenderness to palpation at the stoma as well as slightly inferior to the stoma. BS+, soft, non-distended. Psychiatric: A+Ox3, euthymic affect Results & Data Results & Data ([facility]) Vital Signs (Past 12 Hours) Vital Signs Temp Pulse Pulse Resp BP Pulse Ox O2 Del Method 05/12/22 06:36 36.8 C 98 H 16 116/82 98 Room Air 05/12/22 03:58 36.7 C 80 12 103/69 96 Room Air 05/12/22 00:00 96 H 05/12/22 00:17 36.9 C 78 19 129/92 98 Room Air 05/11/22 21:24 36.8 C 103 H 18 134/74 99 Room Air 05/11/22 19:11 122 H Resident Activity Tracking Resident Involvement: Resident Care Provided Care Provided: Adult Hospital Medicine
[2022-05-12 08:00] LABS: Anion Gap 2 (3-11); BUN Creatinine Ratio 28.6 (10-20); Blood Urea Nitrogen 14 mg/dl (6-23); Carbon Dioxide 34 mmol/L (21-32); Chloride 105 mmol/L (98-107); Creatinine Clr Calc Pharmacy 156.1 ml/min; Est GFR (African American) > 150.0 ml/min; Est GFR (Non-African American) 130.7 ml/min; Glucose 88 mg/dl (70-99(Fasting)); Magnesium 2.1 mg/dl (1.7-2.4); Phosphorus 4.4 mg/dl (2.5-4.9); Potassium 3.7 mmol/L (3.5-5.1); Sodium 141 mmol/L (136-145)
[2022-05-12] MEDS: [UNRECOGNIZED DRUG - REMARK] SCH (08:03)
[2022-05-12] MEDS: HYDROCORTISONE 10 MG TAB PO SCH ×2 (08:05→13:24)
[2022-05-12] MEDS: FAMOTIDINE 20 MG TAB PO SCH ×2 (08:06→20:50)
[2022-05-12] MEDS: DULoxetine HCL 60 MG CAP PO SCH (08:06)
[2022-05-12] MEDS: FLUDROCORTISONE ACETATE 0.1 MG TAB PO SCH ×2 (08:06→20:50)
[2022-05-12] MEDS: PANTOprazole 40 MG TAB PO SCH (08:06)
[2022-05-12] MEDS: NYSTATIN POWDER 15GM BTL EXT SCH ×2 (08:07→20:53)
[2022-05-12] MEDS: GABAPENTIN 250 MG/5 ML 470 ML BTL PO SCH ×3 (08:22→20:46)
--- NOTE | 2022-05-12 08:41 | Billing Data ---
Date of Service May 10, 2022 Coding Level of Care Code 21382 Subseq Hosp Care Lvl 2
--- NOTE | 2022-05-12 08:41 | Billing Data ---
Date of Service May 08, 2022 Coding Level of Care Code 08310 Subseq Hosp Care Lvl 2
--- NOTE | 2022-05-12 08:41 | Billing Data ---
Date of Service May 09, 2022 Coding Level of Care Code 54801 Subseq Hosp Care Lvl 2
[2022-05-12 09:30] LABS: Basophils # (auto) 0.03 K/uL (0-0.2); Basophils % (auto) 0.7 %; Eosinophils # (auto) 0.21 K/uL (0-0.50); Eosinophils % (auto) 4.7 %; Hematocrit (blood only) 25.5 % (34.1-44.9); Immature Granulocytes # (auto) 0.01 K/uL (0.00-0.02); Immature Granulocytes % (auto) 0.2 %; Lymphocytes # (auto) 1.38 K/uL (1.2-3.4); Lymphocytes % (auto) 30.8 %; Mean Corpuscular Hemoglobin 29.1 pg (25.0-34.0); Mean Corpuscular Hgb Conc 31.4 g/dL (32.0-36.0); Mean Corpuscular Volume 92.7 fL (80.0-100.0); Mean Platelet Volume 11.1 fL (9.4-12.3); Monocytes # (auto) 0.76 K/uL (0.24-0.82); Neutrophils # (auto) 2.09 K/uL (1.4-6.5); Neutrophils % (auto) 46.6 %; Platelet Count 239 K/uL (130-400); RDW Coefficient of Variation 12.9 % (11.5-14.5); RDW Standard Deviation 43.8 fL (36.4-46.3); Red Blood Count 2.75 M/uL (3.93-5.22); White Blood Count 4.48 K/ul (4.8-10.8)
[2022-05-12] MEDS ORDERED: HYDROmorphone INJ 0.5 MG/0.5 ML SYR IV STA ×2 (10:48→18:04)
[2022-05-12] MEDS: fentaNYL 25 MCG/HR TDSY TD SCH (11:50)
[2022-05-12] MEDS: [UNRECOGNIZED DRUG - REMARK] SCH (14:44)
[2022-05-12] MEDS: cephALEXin 500 MG CAP PO SCH ×2 (16:25→20:48)
[2022-05-12] MEDS: HYDROmorphone PCA 30 MG/30 ML IV PRN ×2 (18:03→19:08)
[2022-05-12] MEDS: HYOSCYAMINE SULFATE 0.125 MG TAB SL PRN (20:49)
[2022-05-12] MEDS ORDERED: [UNRECOGNIZED DRUG - OTHER] IV SCH (21:00)
[2022-05-12] MEDS ORDERED: CENTRAL TPN IV SCH (21:00)
[2022-05-12] MEDS ORDERED: AMINO ACID 8% IV SCH (21:00)
[2022-05-12] MEDS: SODIUM CHLORIDE 0.9% 1000ML 1,000 ML IV SCH (22:02)
[2022-05-13] MEDS ORDERED: FAT EMUL/SOY/MCT/OLIV/FISH OIL 50 GM/250 ML BAG IV SCH
[2022-05-13] MEDS: CHECK fentaNYL PATCH PLACEMENT SCH ×4 (00:05→23:17)
[2022-05-13] MEDS: LORazepam 1 mg IV INJ IV PRN ×4 (00:06→22:24)
[2022-05-13] MEDS: MELATONIN 3 MG TAB PO PRN (00:06)
[2022-05-13] MEDS ORDERED: HYDROmorphone INJ 0.5 MG/0.5 ML SYR IV STA ×2 (01:15→16:56)
--- NOTE | 2022-05-13 06:41 | Hospitalist Progress Note ---
Date of Service May 13, 2022 Assessment & Plan (1) Seizure-like activity: Plan: 32yo female a complex PMH including gastroparesis, SMA syndrome, ileostomy placement, G-tube placement (on TPN), and adrenal insufficiency presents after multiple episodes of seizure-like activity at home, as well as with intractable abdominal pain and nausea. Chronic generalized abdominal pain, extensive GI history -Patient with very extensive GI history including gastroparesis and multiple abdominal surgeries -Awaiting intestinal transplant at [facility], but will hold of until better pain control is achieved. -Lactate elevated on admission, but repeat value (05/05) not elevated -Gentle IVF, electrolyte repletion -Continue bentyl, duloxetine, pepcid, protonix, gabapentin. Continue zofran and ativan staggered for nausea -05/06: CT a/p: mild stranding adjacent to the distal stomach with trace perigastric and perihepatic fluid, possibly postsurgical though gastritis/peptic ulcer disease is within the differential; no pneumoperitoneum; no intussusception; no bowel obstruction; status post subtotal colectomy with right lower quadrant ileostomy -05/07: CT a/p (this time with IV contrast and oral contrast administered via GJ tube): mild improvement in wall thickening and adjacent fat stranding at the distal stomach -Changed CHANGE MANAGER settings to 0.5mg continuous on 05/08, 0.5mg q15min prn. Increased fentanyl patch from 12mcg to 25mcg for better long acting pain control. Hopefully will be able to wean off CHANGE MANAGER. -After discussing with pharmacy, will trial going on 0.25mg of continuous while on the 25mcg fentanyl patch, if patient able to tolerate can increase fentanyl patch to 37.5mcg and then after therapeutic cut off continuous. -Consulted pain management for potential alternative treatments however no alternative recommendations at this time. -Triggers for patient's pain mostly isolated to moving G-J tube or ostomy site. May likely be caused by adhesional traction of stoma. Will need to discuss with patient's surgeon at [facility] if willing to see her for this, if not may engage local surgeon for opinion on the matter. Stoma infection: -05/11 w/ bleeding at stoma and development of some swelling around stoma. -05/12 development of erythema and discharge at stoma. -Started on nystatin powder BID, Keflex 500mg QID. -Some improvement in discharge today. Continue antimicrobials. Seizure-like activity -Patient with multiple episodes of seizure-like activity which seem to be triggered by severe pain -Patient was diagnosed with PNES recently at [facility]; however, suspect symptoms moreso represent vagal activity precipitated by pain -Optimize pain control (as above) -Continue seizure and fall precautions -Recommend following up with PNES clinic at [facility] Severe protein-calorie malnutrition -Secondary to extensive GI pathology -05/06: restarting TPN -Plan to slowly introduce tube feeds pending clinical improvement Adrenal insufficiency -Chronic; hemodynamically stable -Continue hydrocortisone, fludrocortisone Covid - Resolved -Patient tested positive on 04/18/2022 (at [facility]), repeat PCR on admission still positive -Records from [facility] sent over. Isolation precautions removed. FEN: NPO other than crackers/sips, TPN per pharmacy, LR @ 80mL/hr + KCl 20Meq Code status: full code DVT ppx: SCDs Isolation: covid Dispo: PCU. Dispo for home will depend upon adequate pain control as this is most likely the source of her seizure-like activity and syncopal episodes. (2) Syncope: (3) Abdominal pain, chronic, generalized: (4) Adrenal insufficiency: (5) Chronic malnutrition: (6) Gastroparesis: (7) Gastrostomy tube in place: (8) Intestinal motility disorder: (9) Nausea and vomiting: (10) On total parenteral nutrition (TPN): (11) Severe protein-calorie malnutrition: Admission and Anticipated Discharge Date Admission Date: May 05, 2022 Supervising Physician Co-Signing Physician Notes Patient seen and examined independently of PGY-2 Dr. Douglas. Agree with history, exam findings, assessment and plan of care as outlined. In brief, Pilar is a 32-year-old female with hx of gastroparesis, SMA syndrome, ileostomy placement, G-tube on TPN, and adrenal insufficiency admitted with seizure-like at home, intractable abdominal pain and nausea. Today, pain is slightly better. Did have discharge on the surrounding gauze of the GJ tube site. A bit more redness. VS and nursing notes reviewed. Sitting up in bed doing a puzzle with her dad. Conversational. Tender around the GJ site, no drainage on my exam. There is an area of swelling and tenderness immediately inferior to the GJ site with surrounding erythema. Labs and imaging reviewed. 1. Chronic generalized abdominal pain in the setting of complex GI history. History of gastroparesis, and abdominal surgeries. Following with physicians at [facility], awaiting intestinal transplant. CHANGE MANAGER with dilaudid (decreased to 0.25 mg continuous, 0.5mg q15min PRN), fentanyl 25mcg. PO ad noel. 2. Seizure-like activity. Previous diagnosis of PNES at [facility]. Associated with pain. Becoming less frequent and less long-lasting now that pain is slowly improving. 3. Cellulitis around GJ site. Start Keflex. She has had this antibiotic in the past without rash or other allergic-type symptoms. Wound culture requested. Will also check [facility] records for any previous cultures and sensitivities. 4. Adrenal insufficiency. Continue hydrocortisone, fludrocortisone. No stress doses needed right now. 5. Hx of COVID. Positive on 04/18/22PCR on admission was positive. Dispo: pending clinical improvement. Subjective Patient seen at the bedside saying she feels a little nauseous however the pain is about the same as yesterday. She had one pain episode last night that required breakthrough pain medication. She said she would be willing to go down or off the CHANGE MANAGER pump today. She had less discharge from her stoma overnight and she feels some improvement. Review of Systems Review of Systems: See HPI Physical Exam Constitutional: WD/WN, vitals as above Eyes: PERRL, conjunctivae normal, anicteric sclerae Respiratory: normal respiratory effort, lungs clear to auscultation Cardiovascular: RRR, no murmur, no edema Gastrointestinal (Abdomen): BS+, stoma of PEG tube with erythema surrounding skin, ostomy with good output, tenderness to palpation around stoma. Psychiatric: A+Ox3, euthymic affect Results & Data Results & Data ([facility]) Vital Signs (Past 12 Hours) Vital Signs Temp Pulse Pulse Resp BP BP Pulse Ox 05/12/22 22:22 92 H 05/13/22 03:52 36.7 C 106 H 18 120/80 99 05/13/22 01:20 116 H 130/53 L 100 05/13/22 01:32 112 H 122/76 99 05/13/22 01:11 119 H 121/75 100 05/12/22 23:01 37.0 C 118 H 18 128/87 99 05/12/22 19:04 36.4 C L 94 H 18 131/92 100 O2 Del Method O2 Flow Rate 05/12/22 22:22 05/13/22 03:52 Room Air 05/13/22 01:20 Nasal Cannula 3 05/13/22 01:32 Nasal Cannula 3 05/13/22 01:11 Nasal Cannula 3 05/12/22 23:01 Nasal Cannula 1 05/12/22 19:04 Nasal Cannula 3
[2022-05-13] MEDS: DICYCLOMINE HCL 10 MG CAP PO PRN ×3 (07:02→21:12)
[2022-05-13] MEDS: METHOCARBAMOL 750 MG TABLET PO PRN ×2 (07:02→17:09)
[2022-05-13] MEDS: HYDROmorphone PCA 30 MG/30 ML IV PRN ×4 (07:10→19:11)
[2022-05-13 08:13] LABS: Basophils # (auto) 0.03 K/uL (0-0.2); Basophils % (auto) 0.5 %; Eosinophils # (auto) 0.21 K/uL (0-0.50); Eosinophils % (auto) 3.2 %; Hematocrit (blood only) 23.8 % (34.1-44.9); Hemoglobin 7.7 g/dl (12.0-16.0); Immature Granulocytes # (auto) 0.02 K/uL (0.00-0.02); Immature Granulocytes % (auto) 0.3 %; Lymphocytes # (auto) 1.28 K/uL (1.2-3.4); Lymphocytes % (auto) 19.7 %; Mean Corpuscular Hemoglobin 29.8 pg (25.0-34.0); Mean Corpuscular Hgb Conc 32.4 g/dL (32.0-36.0); Mean Corpuscular Volume 92.2 fL (80.0-100.0); Mean Platelet Volume 11.2 fL (9.4-12.3); Monocytes # (auto) 1.04 K/uL (0.24-0.82); Neutrophils # (auto) 3.91 K/uL (1.4-6.5); Neutrophils % (auto) 60.3 %; Platelet Count 228 K/uL (130-400); RDW Coefficient of Variation 13.1 % (11.5-14.5); RDW Standard Deviation 43.7 fL (36.4-46.3); Red Blood Count 2.58 M/uL (3.93-5.22); White Blood Count 6.49 K/ul (4.8-10.8)
[2022-05-13] MEDS: [UNRECOGNIZED DRUG - REMARK] SCH (08:15)
[2022-05-13 08:38] LABS: Alanine Aminotransferase 25 U/L (7-52); Albumin Level 3.5 gm/dl (3.4-5.0); Alkaline Phosphatase 48 U/L (34-104); Anion Gap 6 (3-11); Aspartate Aminotransferase 15 U/L (13-39); BUN Creatinine Ratio 24.5 (10-20); Bilirubin,Total 0.2 mg/dl (0.2-1.0); Blood Urea Nitrogen 12 mg/dl (6-23); Calcium 8.1 mg/dl (8.5-10.1); Carbon Dioxide 29 mmol/L (21-32); Chloride 106 mmol/L (98-107); Creatinine Clr Calc Pharmacy 156.1 ml/min; Est GFR (African American) > 150.0 ml/min; Est GFR (Non-African American) 130.7 ml/min; Glucose 99 mg/dl (70-99(Fasting)); Potassium 3.5 mmol/L (3.5-5.1); Sodium 141 mmol/L (136-145); Total Protein 5.3 gm/dl (6.0-8.3); Triglycerides 500 mg/dl (0-150)
[2022-05-13 08:44] LABS: Albumin Globulin Ratio 1.9 (0.9-2); Globulin 1.8 gm/dl (2.5-4.0)
[2022-05-13 08:48] LABS: Ovalocytes 1+
[2022-05-13] MEDS: GABAPENTIN 250 MG/5 ML 470 ML BTL PO SCH ×3 (09:30→21:10)
[2022-05-13] MEDS: DULoxetine HCL 60 MG CAP PO SCH (09:31)
[2022-05-13] MEDS: PANTOprazole 40 MG TAB PO SCH (09:31)
[2022-05-13] MEDS: cephALEXin 500 MG CAP PO SCH ×4 (09:31→21:09)
[2022-05-13] MEDS: HYDROCORTISONE 10 MG TAB PO SCH ×2 (09:32→13:51)
[2022-05-13] MEDS: FLUDROCORTISONE ACETATE 0.1 MG TAB PO SCH ×2 (09:32→21:09)
[2022-05-13] MEDS: FAMOTIDINE 20 MG TAB PO SCH ×2 (09:33→21:10)
[2022-05-13] MEDS: NYSTATIN POWDER 15GM BTL EXT SCH ×2 (09:33→21:10)
[2022-05-13] MEDS: ondansetron HCL 8 MG in DEXTROSE 5% 50 ML IV PRN ×3 (09:53→23:54)
[2022-05-13] MEDS: SODIUM CHLORIDE 0.9% 1000ML 1,000 ML IV SCH (13:50)
[2022-05-13] MEDS: [UNRECOGNIZED DRUG - REMARK] SCH (14:50)
[2022-05-13] MEDS ORDERED: HYDROmorphone INJ 0.5 MG/0.5 ML SYR IV PRN (20:53)
[2022-05-13] MEDS ORDERED: AMINO ACID 8% IV SCH (21:00)
[2022-05-13] MEDS ORDERED: [UNRECOGNIZED DRUG - OTHER] IV SCH (21:00)
[2022-05-13] MEDS ORDERED: CENTRAL TPN IV SCH (21:00)
[2022-05-13] MEDS: HYOSCYAMINE SULFATE 0.125 MG TAB SL PRN (21:09)
[2022-05-13] MEDS: HYDROmorphone INJ 0.5 MG/0.5 ML SYR IV PRN ×3 (22:26→23:40)
[2022-05-14] MEDS: HYDROmorphone INJ 0.5 MG/0.5 ML SYR IV PRN ×6 (02:28→23:47)
[2022-05-14] MEDS: DICYCLOMINE HCL 10 MG CAP PO PRN ×3 (05:18→22:18)
[2022-05-14] MEDS: METHOCARBAMOL 750 MG TABLET PO PRN ×2 (05:18→22:19)
[2022-05-14] MEDS: LORazepam 1 mg IV INJ IV PRN ×3 (05:20→22:17)
--- NOTE | 2022-05-14 06:55 | Hospitalist Progress Note ---
Date of Service May 14, 2022 Assessment & Plan (1) Seizure-like activity: Plan: 32yo female a complex PMH including gastroparesis, SMA syndrome, ileostomy placement, G-tube placement (on TPN), and adrenal insufficiency presents after multiple episodes of seizure-like activity at home, as well as with intractable abdominal pain and nausea. Chronic generalized abdominal pain, extensive GI history -Patient with very extensive GI history including gastroparesis and multiple abdominal surgeries -Awaiting intestinal transplant at [facility], but will hold of until better pain control is achieved. -Lactate elevated on admission, but repeat value (05/05) not elevated -Gentle IVF, electrolyte repletion -Continue bentyl, duloxetine, pepcid, protonix, gabapentin. Continue zofran and ativan staggered for nausea -05/06: CT a/p: mild stranding adjacent to the distal stomach with trace perigastric and perihepatic fluid, possibly postsurgical though gastritis/peptic ulcer disease is within the differential; no pneumoperitoneum; no intussusception; no bowel obstruction; status post subtotal colectomy with right lower quadrant ileostomy -05/07: CT a/p (this time with IV contrast and oral contrast administered via GJ tube): mild improvement in wall thickening and adjacent fat stranding at the distal stomach -SURVEY DATA TECHNICIAN continuous changed from 0.5 to 0.25 05/13 - increased fentanyl patch from 25mcg to 37mcg 05/14. Hopefully will be able to titrate off continuous. -SURVEY DATA TECHNICIAN clicks set to 0.5mg dilaudid q15m PRN. -Over past 24 hours patient has received 6mg (continuous SURVEY DATA TECHNICIAN), 28.85mg (SURVEY DATA TECHNICIAN clicks, self regulated), 2.5mg (fentanyl patch equivalent), 3.5mg from break through doses for a total equivalent of 40.85mg of IV dilaudid over past 24 hours. -Consulted pain management for potential alternative treatments however no alternative recommendations at this time. -Triggers for patient's pain mostly isolated to moving G-J tube or ostomy site. May likely be caused by adhesional traction of stoma. Will need to discuss with patient's surgeon at [facility] if willing to see her for this, if not may engage local surgeon for opinion on the matter. However will treat potential soft tissue stoma infection first. Stoma infection: -05/11 w/ bleeding at stoma and development of some swelling around stoma. -05/12 development of erythema and discharge at stoma. -Started on nystatin powder BID, Keflex 500mg QID. -Discharge not much changed, has had more discharge over past 24 hours. -Wound culture sent. 05/14 D/C Keflex, started on Doxycycline 100mg BID. Seizure-like activity -Patient with multiple episodes of seizure-like activity which seem to be triggered by severe pain -Patient was diagnosed with PNES recently at [facility]; however, suspect symptoms moreso represent vagal activity precipitated by pain -Optimize pain control (as above) -Continue seizure and fall precautions -Recommend following up with PNES clinic at [facility] Severe protein-calorie malnutrition -Secondary to extensive GI pathology -05/06: restarting TPN -Plan to slowly introduce tube feeds pending clinical improvement Adrenal insufficiency -Chronic; hemodynamically stable -Continue hydrocortisone, fludrocortisone Covid - Resolved -Patient tested positive on 04/18/2022 (at [facility]), repeat PCR on admission still positive -Records from [facility] sent over. Isolation precautions removed. FEN: NPO other than crackers/sips, TPN per pharmacy, LR @ 80mL/hr + KCl 20Meq Code status: full code DVT ppx: SCDs Isolation: covid Dispo: PCU. Dispo for home will depend upon adequate pain control as this is most likely the source of her seizure-like activity and syncopal episodes. (2) Syncope: (3) Abdominal pain, chronic, generalized: (4) Adrenal insufficiency: (5) Chronic malnutrition: (6) Gastroparesis: (7) Gastrostomy tube in place: (8) Intestinal motility disorder: (9) Nausea and vomiting: (10) On total parenteral nutrition (TPN): (11) Severe protein-calorie malnutrition: Admission and Anticipated Discharge Date Admission Date: May 05, 2022 Supervising Physician Co-Signing Physician Notes Patient seen and examined independently of PGY-2 Dr. Douglas. Agree with history, exam findings, assessment and plan of care as outlined. In brief, Pilar is a 32-year-old female with hx of gastroparesis, SMA syndrome, ileostomy placement, G-tube on TPN, and adrenal insufficiency admitted with seizure-like at home, intractable abdominal pain and nausea. Today, pain is slightly better. Had several episodes of shaking, decreased level of consciousness related to pain. She was able to get some of the discharge from the GJ site for a culture. Feels the area is a bit worse today when compared to yesterday. No fevers. VS and nursing notes reviewed. Sitting up in bed doing a puzzle with her dad. Conversational. Tender around the GJ site, no drainage on my exam. There is an area of swelling and tenderness immediately inferior to the GJ site with surrounding erythema. Labs and imaging reviewed. 1. Chronic generalized abdominal pain in the setting of complex GI history. History of gastroparesis, and abdominal surgeries. Following with physicians at [facility], awaiting intestinal transplant. SURVEY DATA TECHNICIAN with dilaudid (decreased to 0.25 mg continuous, 0.5mg q15min PRN), increased fentanyl to 37.5mcg. Tomorrow will plan to d/c the continuous dilaudid in the SURVEY DATA TECHNICIAN. PO ad noel. 2. Seizure-like activity. Previous diagnosis of PNES at [facility]. Associated with pain. Becoming less frequent and less long-lasting now that pain is slowly improving. 3. Cellulitis around GJ site. Started Keflex, but had a bit more worsening. Switch to doxycycline. Wound culture requested. 4. Adrenal insufficiency. Continue hydrocortisone, fludrocortisone. No stress doses needed right now. 5. Hx of COVID. Positive on 04/18/22PCR on admission was positive. Dispo: pending clinical improvement. Subjective Patient overnight had one episode of pain that lasted 10 minutes with 1 minute of shaking. There was some concern from patient and mother on worsening of stoma, a KUB was ordered which did not show any worsening or acute process. She states that her stoma had worsening of discharge yesterday evening into the night, not much change in appearance. Review of Systems Review of Systems: See HPI Physical Exam Constitutional: WD/WN, vitals as above Eyes: PERRL, conjunctivae normal, anicteric sclerae Respiratory: normal respiratory effort, lungs clear to auscultation Cardiovascular: RRR, no murmur, no edema Gastrointestinal (Abdomen): BS+, stoma of PEG tube with erythema surrounding skin, ostomy with good output, tenderness to palpation around stoma. Psychiatric: A+Ox3, euthymic affect Results & Data Results & Data ([facility]) Vital Signs (Past 12 Hours) Vital Signs Temp Pulse Pulse Resp BP BP Pulse Ox 05/13/22 22:22 105 H 05/14/22 02:27 91 H 18 115/79 99 05/13/22 22:46 102 H 123/82 99 05/13/22 19:51 36.6 C 113 H 18 125/79 100 O2 Del Method O2 Flow Rate 05/13/22 22:22 05/14/22 02:27 Room Air 05/13/22 22:46 Room Air 05/13/22 19:51 Nasal Cannula 1 Resident Activity Tracking Resident Involvement: Resident Care Provided Care Provided: Adult Hospital Medicine
--- NOTE | 2022-05-14 07:12 | XRay Report ---
XR KUB/Abdomen 1 view CLINICAL HISTORY: abdominal pain TECHNIQUE: 1 view of the abdomen was obtained. Comparison: Comparison is made to abdomen radiograph 05/05/2022 FINDINGS: A gastrojejunostomy tube is unchanged. Trace contrast is noted in the rectosigmoid bowel. The osseous structures are grossly unremarkable. The bowel gas pattern is nonobstructive. Small stool burden is seen. IMPRESSION: Nonobstructive bowel gas pattern. ACT 112: Negative or not required by law. Electronically signed by: Tony Barnes M.D. 05/14/2022 7:10 AM
[2022-05-14] MEDS: PANTOprazole 40 MG TAB PO SCH (07:38)
[2022-05-14] MEDS: NYSTATIN POWDER 15GM BTL EXT SCH ×2 (07:39→21:27)
[2022-05-14] MEDS: cephALEXin 500 MG CAP PO SCH (07:39)
[2022-05-14] MEDS: HYDROCORTISONE 10 MG TAB PO SCH ×3 (07:40→14:09)
[2022-05-14] MEDS: FAMOTIDINE 20 MG TAB PO SCH ×2 (07:41→21:27)
[2022-05-14] MEDS: FLUDROCORTISONE ACETATE 0.1 MG TAB PO SCH ×2 (07:41→21:26)
[2022-05-14] MEDS: DULoxetine HCL 60 MG CAP PO SCH (07:42)
[2022-05-14] MEDS: CHECK fentaNYL PATCH PLACEMENT SCH ×5 (07:42→23:47)
[2022-05-14 07:43] LABS: Basophils # (auto) 0.03 K/uL (0-0.2); Basophils % (auto) 0.5 %; Eosinophils # (auto) 0.27 K/uL (0-0.50); Eosinophils % (auto) 4.1 %; Hematocrit (blood only) 25.4 % (34.1-44.9); Hemoglobin 8.1 g/dl (12.0-16.0); Immature Granulocytes # (auto) 0.01 K/uL (0.00-0.02); Immature Granulocytes % (auto) 0.2 %; Lymphocytes % (auto) 24.5 %; Mean Corpuscular Hemoglobin 28.9 pg (25.0-34.0); Mean Corpuscular Hgb Conc 31.9 g/dL (32.0-36.0); Mean Corpuscular Volume 90.7 fL (80.0-100.0); Mean Platelet Volume 10.7 fL (9.4-12.3); Monocytes # (auto) 0.99 K/uL (0.24-0.82); Monocytes % (auto) 15.1 %; Neutrophils # (auto) 3.64 K/uL (1.4-6.5); Neutrophils % (auto) 55.6 %; Platelet Count 211 K/uL (130-400); RDW Standard Deviation 43.4 fL (36.4-46.3); White Blood Count 6.54 K/ul (4.8-10.8)
[2022-05-14] MEDS: GABAPENTIN 250 MG/5 ML 470 ML BTL PO SCH ×3 (08:05→21:27)
[2022-05-14 08:10] LABS: BUN Creatinine Ratio 28.3 (10-20); Calcium 8.1 mg/dl (8.5-10.1); Creatinine Clr Calc Pharmacy 143.6 ml/min; Est GFR (African American) 147.7 ml/min; Est GFR (Non-African American) 127.4 ml/min; Potassium 4.1 mmol/L (3.5-5.1)
[2022-05-14 08:12] LABS: Magnesium 2.1 mg/dl (1.7-2.4); Phosphorus 4.8 mg/dl (2.5-4.9)
[2022-05-14] MEDS: ondansetron HCL 8 MG in DEXTROSE 5% 50 ML IV PRN ×2 (08:19→23:09)
[2022-05-14] MEDS: fentaNYL 12 MCG/HR TDSY TD SCH (10:36)
[2022-05-14] MEDS: fentaNYL 25 MCG/HR TDSY TD SCH (10:36)
[2022-05-14] MEDS: SODIUM CHLORIDE 0.9% 1000ML 1,000 ML IV SCH (13:22)
[2022-05-14] MEDS: HYDROmorphone PCA 30 MG/30 ML IV PRN ×2 (14:31→15:00)
[2022-05-14] MEDS: [UNRECOGNIZED DRUG - REMARK] SCH (15:08)
[2022-05-14] MEDS ORDERED: CENTRAL TPN IV SCH ×2 (21:00)
[2022-05-14] MEDS ORDERED: AMINO ACID 8% IV SCH ×2 (21:00)
[2022-05-14] MEDS ORDERED: [UNRECOGNIZED DRUG - OTHER] IV SCH ×2 (21:00)
[2022-05-14] MEDS: DOXYCYCLINE HYCLATE 100 MG CAP PO SCH (21:26)
[2022-05-14] MEDS: MELATONIN 3 MG TAB PO PRN (22:18)
[2022-05-15] MEDS: HYDROmorphone INJ 0.5 MG/0.5 ML SYR IV PRN ×5 (03:06→23:33)
[2022-05-15 06:56] LABS: Basophils # (auto) 0.04 K/uL (0-0.2); Basophils % (auto) 0.6 %; Eosinophils % (auto) 4.5 %; Hematocrit (blood only) 24.6 % (34.1-44.9); Hemoglobin 7.8 g/dl (12.0-16.0); Immature Granulocytes # (auto) 0.02 K/uL (0.00-0.02); Immature Granulocytes % (auto) 0.3 %; Lymphocytes # (auto) 1.72 K/uL (1.2-3.4); Lymphocytes % (auto) 25.6 %; Mean Corpuscular Hemoglobin 28.2 pg (25.0-34.0); Mean Corpuscular Hgb Conc 31.7 g/dL (32.0-36.0); Mean Corpuscular Volume 88.8 fL (80.0-100.0); Mean Platelet Volume 11.2 fL (9.4-12.3); Monocytes # (auto) 0.87 K/uL (0.24-0.82); Monocytes % (auto) 12.9 %; Neutrophils # (auto) 3.78 K/uL (1.4-6.5); Neutrophils % (auto) 56.1 %; Platelet Count 222 K/uL (130-400); RDW Coefficient of Variation 13.2 % (11.5-14.5); RDW Standard Deviation 43.6 fL (36.4-46.3); Red Blood Count 2.77 M/uL (3.93-5.22); White Blood Count 6.73 K/ul (4.8-10.8)
[2022-05-15 07:17] LABS: BUN Creatinine Ratio 33.3 (10-20); Calcium 7.9 mg/dl (8.5-10.1); Creatinine Clr Calc Pharmacy 149.2 ml/min; Est GFR (African American) 149.6 ml/min; Potassium 3.7 mmol/L (3.5-5.1)
[2022-05-15] MEDS: DICYCLOMINE HCL 10 MG CAP PO PRN ×3 (07:22→22:23)
[2022-05-15] MEDS: METHOCARBAMOL 750 MG TABLET PO PRN ×2 (07:22→22:23)
[2022-05-15 07:28] LABS: Polychromasia 1+
[2022-05-15] MEDS: LORazepam 1 mg IV INJ IV PRN ×3 (07:31→23:46)
[2022-05-15] MEDS: CHECK fentaNYL PATCH PLACEMENT SCH ×4 (08:00→15:15)
--- NOTE | 2022-05-15 09:11 | Hospitalist Progress Note ---
Date of Service May 15, 2022 Assessment & Plan (1) Seizure-like activity: Plan: 32yo female a complex PMH including gastroparesis, SMA syndrome, ileostomy placement, G-tube placement (on TPN), and adrenal insufficiency presents after multiple episodes of seizure-like activity at home, as well as with intractable abdominal pain and nausea. Chronic generalized abdominal pain, extensive GI history -Patient with very extensive GI history including gastroparesis and multiple abdominal surgeries -Awaiting intestinal transplant at [facility], but will hold of until better pain control is achieved. -Lactate elevated on admission, but repeat value (05/05) not elevated -Gentle IVF, electrolyte repletion -Continue bentyl, duloxetine, pepcid, protonix, gabapentin. Continue zofran and ativan staggered for nausea -05/06: CT a/p: mild stranding adjacent to the distal stomach with trace perigastric and perihepatic fluid, possibly postsurgical though gastritis/peptic ulcer disease is within the differential; no pneumoperitoneum; no intussusception; no bowel obstruction; status post subtotal colectomy with right lower quadrant ileostomy -05/07: CT a/p (this time with IV contrast and oral contrast administered via GJ tube): mild improvement in wall thickening and adjacent fat stranding at the distal stomach -CANDY SEPARATOR ENROBING continuous changed from 0.5 to 0.25 05/13 - increased fentanyl patch from 25mcg to 37mcg 05/14. -Will consider D/Cing continuous tomorrow morning. -CANDY SEPARATOR ENROBING clicks set to 0.5mg dilaudid q15m PRN. -Consulted pain management for potential alternative treatments however no alternative recommendations at this time. -Triggers for patient's pain mostly isolated to moving G-J tube or ostomy site. May likely be caused by adhesional traction of stoma. Will need to discuss with patient's surgeon at [facility] if willing to see her for this, if not may engage local surgeon for opinion on the matter. However will treat potential soft tissue stoma infection first. Stoma infection: -05/11 w/ bleeding at stoma and development of some swelling around stoma. -05/12 development of erythema and discharge at stoma. -Started on nystatin powder BID, Keflex 500mg QID. -Discharge not much changed, has had more discharge over past 24 hours. -Wound culture sent. 05/14 D/C Keflex, started on Doxycycline 100mg BID. Seizure-like activity -Patient with multiple episodes of seizure-like activity which seem to be triggered by severe pain -Patient was diagnosed with PNES recently at [facility]; however, suspect symptoms moreso represent vagal activity precipitated by pain -Optimize pain control (as above) -Continue seizure and fall precautions -Recommend following up with PNES clinic at [facility] Severe protein-calorie malnutrition -Secondary to extensive GI pathology -05/06: restarting TPN -Plan to slowly introduce tube feeds pending clinical improvement Adrenal insufficiency -Chronic; hemodynamically stable -Continue hydrocortisone, fludrocortisone Covid - Resolved -Patient tested positive on 04/18/2022 (at [facility]), repeat PCR on admission still positive -Records from [facility] sent over. Isolation precautions removed. FEN: NPO other than crackers/sips, TPN per pharmacy, LR @ 80mL/hr + KCl 20Meq Code status: full code DVT ppx: SCDs Isolation: covid Dispo: PCU. Dispo for home will depend upon adequate pain control as this is most likely the source of her seizure-like activity and syncopal episodes. (2) Syncope: (3) Abdominal pain, chronic, generalized: (4) Adrenal insufficiency: (5) Chronic malnutrition: (6) Gastroparesis: (7) Gastrostomy tube in place: (8) Intestinal motility disorder: (9) Nausea and vomiting: (10) On total parenteral nutrition (TPN): (11) Severe protein-calorie malnutrition: Admission and Anticipated Discharge Date Admission Date: May 05, 2022 Supervising Physician Co-Signing Physician Notes Patient seen and examined independently of PGY-2 Dr. Douglas. Agree with history, exam findings, assessment and plan of care as outlined. In brief, Pilar is a 32-year-old female with hx of gastroparesis, SMA syndrome, ileostomy placement, G-tube on TPN, and adrenal insufficiency admitted with seizure-like at home, intractable abdominal pain and nausea. Pain is up and down but overall feels that she is making some improvement. She is ok with trying to decrease or stop the continuous dilaudid tomorrow and keeping the fentanyl. VS and nursing notes reviewed. Sitting up in bed doing a puzzle with her dad. Conversational. Tender around the GJ site, no drainage on my exam. There is an area of swelling and tenderness immediately inferior to the GJ site with minimal surrounding erythema. Labs and imaging reviewed. 1. Chronic generalized abdominal pain in the setting of complex GI history. History of gastroparesis, and abdominal surgeries. Following with physicians at [facility], awaiting intestinal transplant. CANDY SEPARATOR ENROBING with dilaudid (decreased to 0.25 mg continuous, 0.5mg q15min PRN), increased fentanyl to 37.5mcg. Tomorrow will plan to d/c the continuous dilaudid in the CANDY SEPARATOR ENROBING. PO ad noel. 2. Seizure-like activity. Previous diagnosis of PNES at [facility]. Associated with pain. Becoming less frequent and less long-lasting now that pain is slowly improving. 3. Cellulitis around GJ site. Continue with doxycycline. Wound culture requested. 4. Adrenal insufficiency. Continue hydrocortisone, fludrocortisone. No stress doses needed right now. 5. Hx of COVID. Positive on 04/18/22PCR on admission was positive. Dispo: pending clinical improvement. Subjective Patient seen at the bedside this morning stating her stoma still has some drainage, sometimes a little, sometimes a lot. She states that she had one episode of nausea a little bit after taking the doxycycline however her nausea went away after her PRN zofran. She had 2 pain episodes yesterday, first while changing her ostomy bag. She said both episodes lasted about 5-7 minutes. She says that her pain is still mostly located at the stoma and inferior to the stoma where there remains swelling. She was inquiring about her kidney stones seen on initial CT A&P, however reassured patient on small size of stone, adequate hydration with popsicles, and to let us know if any changes to pain Review of Systems Review of Systems: See HPI Physical Exam Constitutional: WD/WN, vitals as above Eyes: PERRL, conjunctivae normal, anicteric sclerae Respiratory: normal respiratory effort, lungs clear to auscultation Cardiovascular: RRR, no murmur, no edema Gastrointestinal (Abdomen): BS+, mild tenderness to palpation, mild improvement to erythema surrounding stoma, non-distended, soft. Psychiatric: A+Ox3, euthymic affect Results & Data Results & Data ([facility]) Vital Signs (Past 12 Hours) Vital Signs Temp Pulse Pulse Pulse Resp BP BP 05/15/22 07:30 89 05/15/22 07:30 05/15/22 07:56 36.6 C 91 H 17 113/76 05/15/22 03:34 36.7 C 109 H 18 127/59 L 05/15/22 02:57 114 H 18 127/59 L 05/15/22 02:37 36.6 C 103 H 18 116/78 05/14/22 23:44 106 H 108/71 05/14/22 23:42 117 H 107/65 05/14/22 22:40 105 H 05/14/22 22:20 37.2 C 111 H 18 118/82 Pulse Ox O2 Del Method 05/15/22 07:30 05/15/22 07:30 Room Air 05/15/22 07:56 97 Room Air 05/15/22 03:34 98 Room Air 05/15/22 02:57 99 Room Air 05/15/22 02:37 97 Room Air 05/14/22 23:44 05/14/22 23:42 05/14/22 22:40 05/14/22 22:20 97 Room Air Resident Activity Tracking Resident Involvement: Resident Care Provided Care Provided: Adult Hospital Medicine
[2022-05-15] MEDS: DOXYCYCLINE HYCLATE 100 MG CAP PO SCH ×2 (09:17→21:15)
[2022-05-15] MEDS: HYDROCORTISONE 10 MG TAB PO SCH ×2 (09:19→14:35)
[2022-05-15] MEDS: DULoxetine HCL 60 MG CAP PO SCH (09:20)
[2022-05-15] MEDS: FAMOTIDINE 20 MG TAB PO SCH ×2 (09:20→21:15)
[2022-05-15] MEDS: PANTOprazole 40 MG TAB PO SCH (09:20)
[2022-05-15] MEDS: GABAPENTIN 250 MG/5 ML 470 ML BTL PO SCH ×3 (09:21→21:19)
[2022-05-15] MEDS: NYSTATIN POWDER 15GM BTL EXT SCH ×2 (09:22→22:02)
[2022-05-15] MEDS: ondansetron HCL 8 MG in DEXTROSE 5% 50 ML IV PRN ×2 (09:34→20:42)
[2022-05-15] MEDS: FLUDROCORTISONE ACETATE 0.1 MG TAB PO SCH ×2 (10:16→21:15)
[2022-05-15] MEDS: HYDROmorphone PCA 30 MG/30 ML IV PRN ×2 (12:14→19:15)
[2022-05-15] MEDS: SODIUM CHLORIDE 0.9% 1000ML 1,000 ML IV SCH (14:43)
[2022-05-15] MEDS: [UNRECOGNIZED DRUG - REMARK] SCH (15:14)
[2022-05-15] MEDS ORDERED: AMINO ACID 8% IV SCH (21:00)
[2022-05-15] MEDS ORDERED: [UNRECOGNIZED DRUG - OTHER] IV SCH (21:00)
[2022-05-15] MEDS ORDERED: CENTRAL TPN IV SCH (21:00)
[2022-05-15] MEDS: MELATONIN 3 MG TAB PO PRN (22:25)
[2022-05-16] MEDS: CHECK fentaNYL PATCH PLACEMENT SCH ×6 (00:17→14:58)
[2022-05-16] MEDS: HYOSCYAMINE SULFATE 0.125 MG TAB SL PRN (00:54)
[2022-05-16] MEDS: HYDROmorphone INJ 0.5 MG/0.5 ML SYR IV PRN ×5 (01:00→20:44)
[2022-05-16] MEDS: DICYCLOMINE HCL 10 MG CAP PO PRN ×3 (06:21→22:29)
[2022-05-16] MEDS: METHOCARBAMOL 750 MG TABLET PO PRN ×3 (06:21→22:28)
[2022-05-16] MEDS: LORazepam 1 mg IV INJ IV PRN ×3 (06:21→22:28)
--- NOTE | 2022-05-16 06:37 | Hospitalist Progress Note ---
Date of Service May 16, 2022 Assessment & Plan (1) Seizure-like activity: Plan: 32yo female a complex PMH including gastroparesis, SMA syndrome, ileostomy placement, G-tube placement (on TPN), and adrenal insufficiency presents after multiple episodes of seizure-like activity at home, as well as with intractable abdominal pain and nausea. Chronic generalized abdominal pain, extensive GI history -Patient with very extensive GI history including gastroparesis and multiple abdominal surgeries -Awaiting intestinal transplant at [facility], but will hold of until better pain control is achieved. -Lactate elevated on admission, but repeat value (05/05) not elevated -Gentle IVF, electrolyte repletion -Continue bentyl, duloxetine, pepcid, protonix, gabapentin. Continue zofran and ativan staggered for nausea -05/06: CT a/p: mild stranding adjacent to the distal stomach with trace perigastric and perihepatic fluid, possibly postsurgical though gastritis/peptic ulcer disease is within the differential; no pneumoperitoneum; no intussusception; no bowel obstruction; status post subtotal colectomy with right lower quadrant ileostomy -05/07: CT a/p (this time with IV contrast and oral contrast administered via GJ tube): mild improvement in wall thickening and adjacent fat stranding at the distal stomach -Over past 24 hours patient had 36.6mg dilaudid from ELECTRONIC TECHNICIAN clicks, 5.5mg from continuous ELECTRONIC TECHNICIAN, 3.5mg breakthrough, and fentanyl from patch equivalent to 4mg of dilaudid, totalling 49.6mg equivalents over past 24 hours. -Discontinued ELECTRONIC TECHNICIAN this morning around 11AM. Hopefully can wean down breakthrough pain and off ELECTRONIC TECHNICIAN. -ELECTRONIC TECHNICIAN clicks set to 0.5mg dilaudid q15m PRN. -Consulted pain management for potential alternative treatments however no alternative recommendations at this time. -Triggers for patient's pain mostly isolated to moving G-J tube or ostomy site. May likely be caused by adhesional traction of stoma. Will need to discuss with patient's surgeon at [facility] if willing to see her for this, if not may engage local surgeon for opinion on the matter. However will treat potential soft tissue stoma infection first. Stoma infection: -05/11 w/ bleeding at stoma and development of some swelling around stoma. -05/12 development of erythema and discharge at stoma. -Had pseudomonas bacteremia in September of 2019. -Few days of Keflex followed by Doxycycline after little improvement. -Discharge not much changed, still with episodes of moderate discharge. -Wound culture growing gram negative bacilli. -Changed from Doxycycline to Cefdinir 300mg BID for better gram negative coverage. Seizure-like activity -Patient with multiple episodes of seizure-like activity which seem to be triggered by severe pain -Patient was diagnosed with PNES recently at [facility]; however, suspect symptoms moreso represent vagal activity precipitated by pain -Optimize pain control (as above) -Continue seizure and fall precautions -Recommend following up with PNES clinic at [facility] Severe protein-calorie malnutrition -Secondary to extensive GI pathology -05/06: restarting TPN -Plan to slowly introduce tube feeds pending clinical improvement Adrenal insufficiency -Chronic; hemodynamically stable -Continue hydrocortisone, fludrocortisone Covid - Resolved -Patient tested positive on 04/18/2022 (at [facility]), repeat PCR on admission still positive -Records from [facility] sent over. Isolation precautions removed. FEN: NPO other than crackers/sips, TPN per pharmacy, LR @ 80mL/hr + KCl 20Meq Code status: full code DVT ppx: SCDs Isolation: covid Dispo: PCU. Dispo for home will depend upon adequate pain control as this is most likely the source of her seizure-like activity and syncopal episodes. (2) Syncope: (3) Abdominal pain, chronic, generalized: (4) Adrenal insufficiency: (5) Chronic malnutrition: (6) Gastroparesis: (7) Gastrostomy tube in place: (8) Intestinal motility disorder: (9) Nausea and vomiting: (10) On total parenteral nutrition (TPN): (11) Severe protein-calorie malnutrition: Admission and Anticipated Discharge Date Admission Date: May 05, 2022 Supervising Physician Co-Signing Physician Notes Patient seen and examined independently of PGY-2 Dr. Douglas. Agree with history, exam findings, assessment and plan of care as outlined. In brief, Pilar is a 32-year-old female with hx of gastroparesis, SMA syndrome, ileostomy placement, G-tube on TPN, and adrenal insufficiency admitted with seizure-like at home, intractable abdominal pain and nausea. Turning off continuous dilaudid drip and keeping the fentanyl. VS and nursing notes reviewed. Sitting up in bed. Conversational. Tender around the GJ site, no drainage on my exam. Labs and imaging reviewed. 1. Chronic generalized abdominal pain in the setting of complex GI history. History of gastroparesis, and abdominal surgeries. Following with physicians at [facility], awaiting intestinal transplant. ELECTRONIC TECHNICIAN with dilaudid (stopped continuous, 0.5mg q15min PRN), increased fentanyl to 37.5mcg. Tomorrow will plan to d/c the continuous dilaudid in the ELECTRONIC TECHNICIAN. PO ad noel. 2. Seizure-like activity. Previous diagnosis of PNES at [facility]. Associated with pain. Becoming less frequent and less long-lasting now that pain is slowly improving. 3. Cellulitis around GJ site. Continue with doxycycline. Wound culture requested. 4. Adrenal insufficiency. Continue hydrocortisone, fludrocortisone. No stress doses needed right now. 5. Hx of COVID. Positive on 04/18/22PCR on admission was positive. Dispo: pending clinical improvement. Subjective Patient seen at the bedside this morning saying that her stoma feels a little better but discharge is still around the same up and down on amount of discharge throughout the day. Her pain has been about the same on the 0.25mg continuous with 37mcg fentanyl patch for long acting pain. Her nausea is under control with PRN medications. Review of Systems Review of Systems: See HPI Physical Exam Constitutional: WD/WN, vitals as above Eyes: PERRL, conjunctivae normal, anicteric sclerae Respiratory: normal respiratory effort, lungs clear to auscultation Cardiovascular: RRR, no murmur, no edema Gastrointestinal (Abdomen): BS+, mild tenderness to palpation, mild improvement to erythema surrounding stoma, non-distended, soft. Psychiatric: A+Ox3, euthymic affect Results & Data Results & Data ([facility]) Vital Signs (Past 12 Hours) Vital Signs Temp Pulse Pulse Resp BP Pulse Ox O2 Del Method 05/16/22 03:43 36.8 C 110 H 18 103/70 98 Nasal Cannula 05/16/22 00:47 106 H 05/16/22 00:16 36.6 C 126 H 20 109/71 99 Nasal Cannula 05/15/22 19:05 36.8 C 109 H 18 112/76 99 Room Air O2 Flow Rate 05/16/22 03:43 1.0 05/16/22 00:47 05/16/22 00:16 1.0 05/15/22 19:05 Resident Activity Tracking Resident Involvement: Resident Care Provided Care Provided: Adult Hospital Medicine
[2022-05-16] MEDS: DULoxetine HCL 60 MG CAP PO SCH (08:53)
[2022-05-16] MEDS: PANTOprazole 40 MG TAB PO SCH (08:54)
[2022-05-16] MEDS: FLUDROCORTISONE ACETATE 0.1 MG TAB PO SCH ×2 (09:17→20:54)
[2022-05-16 09:18] LABS: Basophils # (auto) 0.03 K/uL (0-0.2); Basophils % (auto) 0.5 %; Eosinophils # (auto) 0.31 K/uL (0-0.50); Eosinophils % (auto) 5.6 %; Hematocrit (blood only) 24.7 % (34.1-44.9); Hemoglobin 7.7 g/dl (12.0-16.0); Immature Granulocytes # (auto) 0.01 K/uL (0.00-0.02); Immature Granulocytes % (auto) 0.2 %; Lymphocytes % (auto) 30.9 %; Mean Corpuscular Hemoglobin 28.5 pg (25.0-34.0); Mean Corpuscular Hgb Conc 31.2 g/dL (32.0-36.0); Mean Corpuscular Volume 91.5 fL (80.0-100.0); Mean Platelet Volume 10.9 fL (9.4-12.3); Monocytes # (auto) 0.75 K/uL (0.24-0.82); Monocytes % (auto) 13.6 %; Neutrophils # (auto) 2.71 K/uL (1.4-6.5); Neutrophils % (auto) 49.2 %; Platelet Count 205 K/uL (130-400); RDW Coefficient of Variation 13.2 % (11.5-14.5); RDW Standard Deviation 44.6 fL (36.4-46.3); White Blood Count 5.51 K/ul (4.8-10.8)
[2022-05-16] MEDS: GABAPENTIN 250 MG/5 ML 470 ML BTL PO SCH ×3 (09:18→20:58)
[2022-05-16] MEDS: FAMOTIDINE 20 MG TAB PO SCH ×2 (09:18→20:54)
[2022-05-16] MEDS: HYDROCORTISONE 10 MG TAB PO SCH ×2 (09:25→13:45)
[2022-05-16] MEDS: NYSTATIN POWDER 15GM BTL EXT SCH (09:26)
[2022-05-16] MEDS: DOXYCYCLINE HYCLATE 100 MG CAP PO SCH (09:28)
[2022-05-16] MEDS: ondansetron HCL 8 MG in DEXTROSE 5% 50 ML IV PRN ×2 (09:30→20:50)
[2022-05-16 09:40] LABS: BUN Creatinine Ratio 29.3 (10-20); Calcium 8.4 mg/dl (8.5-10.1); Creatinine Clr Calc Pharmacy 132.8 ml/min; Est GFR (African American) 143.4 ml/min; Est GFR (Non-African American) 123.7 ml/min; Potassium 3.9 mmol/L (3.5-5.1)
[2022-05-16 09:43] LABS: Polychromasia 1+; Tear Drop Cells 1+
--- NOTE | 2022-05-16 13:29 | Pharmacy Report ---
PHA: Parenteral Nutrition Con - Date of Service May 16, 2022 - Scope Pharmacy was consulted on 05/06/22 to manage parenteral nutrition orders for this patient. - Subjective The patient is currently on day 11 of central parenteral nutrition (continuation of chronic TPN) - Objective Height: 5 ft 6 in Weight: 59.8 kg Intake & Output (24hrs):: Intake & Output 05/14/22 05/15/22 05/16/22 05/17/22 06:59 06:59 06:59 06:59 Intake Total 4018.165 / 4018.165 2127 / 2127 5034.05 / 5034.05 Output Total 800 / 800 4250 / 4250 4650 / 4650 650 / 650 Balance 3218.165 / 3218.165 -2121 / -2121 384.05 / 384.05 -650 / -650 Weight 58.6 kg 58.6 kg 59.8 kg Laboratory Data (Last 24 Hr):: 05/16/22 08:44 Sodium 141 Potassium 3.9 Chloride 106 Carbon Dioxide 31 BUN 17 Creatinine 0.58 L Glucose 110 H Calcium 8.4 L Phosphorus 4.0 Magnesium 2.0 Triglycerides 192 H Nutrition Assessment:: Please refer to the Notes section of the EMR for the most recent shell maker lockstitch note. - Assessment * Electrolytes remain stable - no change to electrolyte additives or AAs/dextrose * Triglycerides of 500 mg/dL on 05/13, have held lipids since that time * Triglycerides now 192 mg/dL this morning. Discussed with dietary and will proceed with lipids ~3x/week * Continue with cyclic TPN over 18 hours * Still trying to achieve adequate pain control to allow for safe discharge - Plan For day 11 of PN administration, the following will be ordered: Macronutrients Amino acids 80 grams/day Dextrose 140 grams/day SMOFlipids 50 grams/day Micronutrients Sodium chloride 120 mEq Potassium phosphate 12 mMol Potassium chloride 80 mEq Potassium acetate 40 mEq Magnesium sulfate 12.18 mEq Calcium gluconate 9.3 mEq Additional additives: thiamine 100 mg, folic acid 1 mg Total volume 1136 mL to be infused over 18 hrs will provide 1296 kcal/day Labs, as indicated, will be ordered per protocol Pharmacy will continue to follow and adjust parenteral nutrition orders on a daily basis. Thank you for allowing us to participate in the care of this patient.
[2022-05-16] MEDS: SODIUM CHLORIDE 0.9% 1000ML 1,000 ML IV SCH (13:36)
[2022-05-16] MEDS: [UNRECOGNIZED DRUG - REMARK] SCH (14:57)
[2022-05-16] MEDS ORDERED: HYDROmorphone INJ 0.5 MG/0.5 ML SYR IV STA (16:51)
[2022-05-16] MEDS: HYDROmorphone PCA 30 MG/30 ML IV PRN ×2 (19:30→20:38)
[2022-05-16] MEDS: CENTRAL TPN IV SCH (20:27)
[2022-05-16] MEDS: [UNRECOGNIZED DRUG - OTHER] IV SCH (20:27)
[2022-05-16] MEDS: AMINO ACID 8% IV SCH (20:27)
[2022-05-16] MEDS: CEFDINIR 300 MG CAP PO SCH (20:55)
[2022-05-16] MEDS: MELATONIN 3 MG TAB PO PRN (22:29)
[2022-05-17] MEDS ORDERED: FAT EMUL/SOY/MCT/OLIV/FISH OIL 50 GM/250 ML BAG IV SCH
[2022-05-17] MEDS: CHECK fentaNYL PATCH PLACEMENT SCH ×8 (00:02→23:56)
[2022-05-17] MEDS: HYDROmorphone INJ 0.5 MG/0.5 ML SYR IV PRN ×6 (01:05→22:14)
[2022-05-17] MEDS: HYOSCYAMINE SULFATE 0.125 MG TAB SL PRN ×2 (02:01→10:48)
[2022-05-17] MEDS: LORazepam 1 mg IV INJ IV PRN ×3 (06:09→22:08)
[2022-05-17] MEDS: DICYCLOMINE HCL 10 MG CAP PO PRN ×3 (06:10→21:02)
[2022-05-17] MEDS: METHOCARBAMOL 750 MG TABLET PO PRN ×3 (06:31→22:09)
--- NOTE | 2022-05-17 06:57 | Hospitalist Progress Note ---
Date of Service May 17, 2022 Assessment & Plan (1) Seizure-like activity: Plan: 32yo female a complex PMH including gastroparesis, SMA syndrome, ileostomy placement, G-tube placement (on TPN), and adrenal insufficiency presents after multiple episodes of seizure-like activity at home, as well as with intractable abdominal pain and nausea. Chronic generalized abdominal pain, extensive GI history -Patient with very extensive GI history including gastroparesis and multiple abdominal surgeries -Awaiting intestinal transplant at [facility], but will hold of until better pain control is achieved. -Lactate elevated on admission, but repeat value (05/05) not elevated -Gentle IVF, electrolyte repletion -Continue bentyl, duloxetine, pepcid, protonix, gabapentin. Continue zofran and ativan staggered for nausea -05/06: CT a/p: mild stranding adjacent to the distal stomach with trace perigastric and perihepatic fluid, possibly postsurgical though gastritis/peptic ulcer disease is within the differential; no pneumoperitoneum; no intussusception; no bowel obstruction; status post subtotal colectomy with right lower quadrant ileostomy -05/07: CT a/p (this time with IV contrast and oral contrast administered via GJ tube): mild improvement in wall thickening and adjacent fat stranding at the distal stomach -Over past 24 hours patient had 6 mg dilaudid from RETAIL WIRELESS SALES REPRESENTATIVE clicks and fentanyl from patch equivalent to 4mg of dilaudid, totalling 10 mg equivalents over past 24 hours which is an improvement from yesterday. -Discontinued RETAIL WIRELESS SALES REPRESENTATIVE this morning around 11AM. Hopefully can wean down breakthrough pain and off RETAIL WIRELESS SALES REPRESENTATIVE. -RETAIL WIRELESS SALES REPRESENTATIVE clicks set to 0.5mg dilaudid q15m PRN. Her average usage has been 1-Click per hour on 05/17/22 -Consulted pain management for potential alternative treatments however no alternative recommendations at this time. -Triggers for patient's pain mostly isolated to moving G-J tube or ostomy site. May likely be caused by adhesional traction of stoma. Will need to discuss with patient's surgeon at [facility] if willing to see her for this, if not may engage local surgeon for opinion on the matter. However will treat potential soft tissue stoma infection first. Stoma infection: -05/11 w/ bleeding at stoma and development of some swelling around stoma. -05/12 development of erythema and discharge at stoma. -Had pseudomonas bacteremia in September of 2019. -Few days of Keflex followed by Doxycycline after little improvement. -Discharge not much changed, still with episodes of moderate discharge. -Wound culture growing gram negative bacilli. -Changed from Doxycycline to Cefdinir 300mg BID on 05/16 for better gram negative coverage. -Infection showing much improvement after switching to cefdinir. Will continue for 5 days total. Seizure-like activity -Patient with multiple episodes of seizure-like activity which seem to be triggered by severe pain -Patient was diagnosed with PNES recently at [facility]; however, suspect symptoms moreso represent vagal activity precipitated by pain -Optimize pain control (as above) -Continue seizure and fall precautions -Recommend following up with PNES clinic at [facility] Severe protein-calorie malnutrition -Secondary to extensive GI pathology -05/06: restarting TPN -Plan to slowly introduce tube feeds pending clinical improvement Adrenal insufficiency -Chronic; hemodynamically stable -Continue hydrocortisone, fludrocortisone Covid - Resolved -Patient tested positive on 04/18/2022 (at [facility]), repeat PCR on admission still positive -Records from [facility] sent over. Isolation precautions removed. FEN: NPO other than crackers/sips, TPN per pharmacy, LR @ 80mL/hr + KCl 20Meq Code status: full code DVT ppx: SCDs Isolation: covid Dispo: PCU. Dispo for home will depend upon adequate pain control as this is most likely the source of her seizure-like activity and syncopal episodes. (2) Syncope: (3) Abdominal pain, chronic, generalized: (4) Adrenal insufficiency: (5) Chronic malnutrition: (6) Gastroparesis: (7) Gastrostomy tube in place: (8) Intestinal motility disorder: (9) Nausea and vomiting: (10) On total parenteral nutrition (TPN): (11) Severe protein-calorie malnutrition: Admission and Anticipated Discharge Date Admission Date: May 05, 2022 Supervising Physician Co-Signing Physician Notes Patient seen and examined independently of PGY-2 Dr. Genao. Agree with history, exam findings, assessment and plan of care as outlined. In brief, Pilar is a 32-year-old female with hx of gastroparesis, SMA syndrome, ileostomy placement, G-tube on TPN, and adrenal insufficiency admitted with seizure-like episodes at home, intractable abdominal pain and nausea. Continue off of continuous RETAIL WIRELESS SALES REPRESENTATIVE, and continue the fentanyl. VS and nursing notes reviewed. Sitting up in bed. Conversational. Mild diffuse abdominal tenderness without rebound or guarding, no drainage at G tube site on my exam. Labs and imaging reviewed. 1. Chronic generalized abdominal pain in the setting of complex GI history. History of gastroparesis, and multiple abdominal surgeries. Following with physicians at [facility], and awaiting intestinal transplant. RETAIL WIRELESS SALES REPRESENTATIVE with Dilaudid (0.5mg q15min PRN), continue fentanyl 37.5mcg. PO ad noel. Continue TPN. Will need arrangement of either primary care provider willing to assume care of TPN on discharge, vs. [facility] provider assuming this care. 2. Seizure-like activity several times overnight, seeming to be associated with pain. Previous diagnosis of PNES at [facility]. Continue to monitor. Is having prolonged EEG in future by [facility] provider. 3. Cellulitis around GJ site, improving and no redness today. Continue with cefdinir. 4. Adrenal insufficiency. Continue hydrocortisone, fludrocortisone. No stress doses needed right now. 5. Hx of COVID. Positive on 04/18/22PCR on admission was positive. 6. Anemia: chronic, baseline for last few months Hgb of ~8. Hgb 7.5 today, continue to monitor, no indication for transfusion at this time. Dispo: pending clinical improvement. Discussed will continue to try to wean pain medications through weekend and contact [facility] on Thursday if not continuing to improve or having worsening. Subjective No acute events overnight. Endorses pain similar to yesterday, however RETAIL WIRELESS SALES REPRESENTATIVE continuous was turned off so has had less opiate medication today. No nausea or vomiting, chest pain, SOB. Review of Systems Review of Systems: All systems reviewed & are unremarkable except as noted in HPI & below Physical Exam Constitutional: WD/WN, vitals as above Respiratory: normal respiratory effort, lungs clear to auscultation Cardiovascular: RRR, no murmur, no edema Gastrointestinal (Abdomen): normal bowel sounds, soft, nontender, no hepatosplenomegaly Skin: no rashes, warm and dry feeding tube site without evidence of surrounding erythema or purulent drainage colostomy site is opaque bag, however no surrounding erythema abdominal tenderness, moderate, to palpation (this is chronic) Psychiatric: A+Ox3, euthymic affect Results & Data Results & Data ([facility]) Vital Signs (Past 12 Hours) Vital Signs Temp Pulse Resp BP Pulse Ox O2 Del Method O2 Flow Rate 05/17/22 03:05 36.6 C 96 H 18 111/79 99 Nasal Cannula 1 05/16/22 23:00 36.7 C 109 H 18 122/77 100 Nasal Cannula 1.0 05/16/22 19:02 36.8 C 109 H 20 112/76 98 Nasal Cannula 1.0
[2022-05-17] MEDS: HYDROmorphone PCA 30 MG/30 ML IV PRN (07:20)
[2022-05-17] MEDS: [UNRECOGNIZED DRUG - REMARK] SCH (08:10)
[2022-05-17 08:46] LABS: Basophils # (auto) 0.04 K/uL (0-0.2); Basophils % (auto) 0.7 %; Eosinophils # (auto) 0.25 K/uL (0-0.50); Eosinophils % (auto) 4.3 %; Hematocrit (blood only) 23.6 % (34.1-44.9); Hemoglobin 7.5 g/dl (12.0-16.0); Immature Granulocytes # (auto) 0.02 K/uL (0.00-0.02); Immature Granulocytes % (auto) 0.3 %; Lymphocytes # (auto) 1.67 K/uL (1.2-3.4); Lymphocytes % (auto) 28.7 %; Mean Corpuscular Hemoglobin 28.8 pg (25.0-34.0); Mean Corpuscular Hgb Conc 31.8 g/dL (32.0-36.0); Mean Corpuscular Volume 90.8 fL (80.0-100.0); Mean Platelet Volume 10.6 fL (9.4-12.3); Monocytes # (auto) 0.94 K/uL (0.24-0.82); Monocytes % (auto) 16.2 %; Neutrophils % (auto) 49.8 %; Platelet Count 223 K/uL (130-400); RDW Coefficient of Variation 13.2 % (11.5-14.5); White Blood Count 5.82 K/ul (4.8-10.8)
[2022-05-17 08:47] LABS: BUN Creatinine Ratio 27.8 (10-20); Calcium 7.8 mg/dl (8.5-10.1); Creatinine Clr Calc Pharmacy 142.6 ml/min; Est GFR (African American) 146.8 ml/min; Est GFR (Non-African American) 126.6 ml/min; Magnesium 1.8 mg/dl (1.7-2.4); Phosphorus 3.8 mg/dl (2.5-4.9); Potassium 3.9 mmol/L (3.5-5.1)
[2022-05-17] MEDS: fentaNYL 12 MCG/HR TDSY TD SCH (09:08)
[2022-05-17] MEDS: fentaNYL 25 MCG/HR TDSY TD SCH (09:08)
[2022-05-17 09:09] LABS: Polychromasia 1+; Tear Drop Cells 1+
[2022-05-17] MEDS: HYDROCORTISONE 10 MG TAB PO SCH ×2 (09:10→13:59)
[2022-05-17] MEDS: PANTOprazole 40 MG TAB PO SCH (09:10)
[2022-05-17] MEDS: FLUDROCORTISONE ACETATE 0.1 MG TAB PO SCH ×2 (09:10→20:43)
[2022-05-17] MEDS: CEFDINIR 300 MG CAP PO SCH ×2 (09:11→20:43)
[2022-05-17] MEDS: DULoxetine HCL 60 MG CAP PO SCH (09:11)
[2022-05-17] MEDS: FAMOTIDINE 20 MG TAB PO SCH ×2 (09:11→20:43)
[2022-05-17] MEDS: GABAPENTIN 250 MG/5 ML 470 ML BTL PO SCH ×3 (09:26→21:14)
--- NOTE | 2022-05-17 11:50 | Billing Data ---
Date of Service May 16, 2022 Coding Level of Care Code 16855 Subseq Hosp Care Lvl 2
[2022-05-17] MEDS: SODIUM CHLORIDE 0.9% 1000ML 1,000 ML IV SCH (13:13)
[2022-05-17] MEDS: [UNRECOGNIZED DRUG - REMARK] SCH (15:19)
[2022-05-17] MEDS: ondansetron HCL 8 MG in DEXTROSE 5% 50 ML IV PRN (16:31)
--- NOTE | 2022-05-17 19:34 | Billing Data ---
Date of Service May 17, 2022 Coding Level of Care Code 23883 Subseq Hosp Care Lvl 2
[2022-05-17] MEDS ORDERED: AMINO ACID 8% IV SCH (21:00)
[2022-05-17] MEDS ORDERED: [UNRECOGNIZED DRUG - OTHER] IV SCH (21:00)
[2022-05-17] MEDS ORDERED: CENTRAL TPN IV SCH (21:00)
[2022-05-17] MEDS: MELATONIN 3 MG TAB PO PRN (22:09)
[2022-05-18] MEDS: ondansetron HCL 8 MG in DEXTROSE 5% 50 ML IV PRN ×2 (01:25→17:08)
[2022-05-18] MEDS: HYDROmorphone INJ 0.5 MG/0.5 ML SYR IV PRN ×6 (02:34→21:29)
[2022-05-18] MEDS: DICYCLOMINE HCL 10 MG CAP PO PRN ×3 (04:20→21:36)
[2022-05-18] MEDS: LORazepam 1 mg IV INJ IV PRN ×3 (06:09→23:06)
[2022-05-18 08:51] LABS: Hematocrit (blood only) 24.8 % (34.1-44.9); Hemoglobin 7.7 g/dl (12.0-16.0); Mean Corpuscular Hemoglobin 28.2 pg (25.0-34.0); Mean Corpuscular Volume 90.8 fL (80.0-100.0); Mean Platelet Volume 11.3 fL (9.4-12.3); Platelet Count 230 K/uL (130-400); RDW Coefficient of Variation 13.3 % (11.5-14.5); RDW Standard Deviation 44.4 fL (36.4-46.3); Red Blood Count 2.73 M/uL (3.93-5.22); White Blood Count 5.59 K/ul (4.8-10.8)
[2022-05-18] MEDS: CHECK fentaNYL PATCH PLACEMENT SCH ×4 (08:53→23:56)
[2022-05-18] MEDS: HYDROCORTISONE 10 MG TAB PO SCH ×2 (08:54→14:43)
[2022-05-18] MEDS: FAMOTIDINE 20 MG TAB PO SCH ×2 (08:54→20:54)
[2022-05-18] MEDS: PANTOprazole 40 MG TAB PO SCH (08:55)
[2022-05-18] MEDS: FLUDROCORTISONE ACETATE 0.1 MG TAB PO SCH ×2 (08:55→20:54)
[2022-05-18] MEDS: DULoxetine HCL 60 MG CAP PO SCH (08:55)
[2022-05-18] MEDS: CEFDINIR 300 MG CAP PO SCH ×2 (08:56→20:54)
[2022-05-18] MEDS: GABAPENTIN 250 MG/5 ML 470 ML BTL PO SCH ×3 (08:59→20:53)
[2022-05-18] MEDS: CENTRAL TPN IV SCH (09:03)
[2022-05-18] MEDS: AMINO ACID 8% IV SCH (09:03)
[2022-05-18] MEDS: [UNRECOGNIZED DRUG - OTHER] IV SCH (09:03)
[2022-05-18] MEDS: SODIUM CHLORIDE 0.9% 1000ML 1,000 ML IV SCH (10:55)
[2022-05-18 11:33] LABS: Ferritin 3.4 ng/ml (8-388)
[2022-05-18 11:39] LABS: Vitamin B12 328 pg/ml (180-914)
[2022-05-18] MEDS: HYDROmorphone PCA 30 MG/30 ML IV PRN (12:35)
[2022-05-18] MEDS: fentaNYL 50 MCG/HR TDSY TD SCH (14:43)
[2022-05-18] MEDS: [UNRECOGNIZED DRUG - REMARK] SCH (15:05)
--- NOTE | 2022-05-18 17:37 | Hospitalist Progress Note ---
Date of Service May 18, 2022 Assessment & Plan (1) Seizure-like activity: Plan: 32yo female a complex PMH including gastroparesis, SMA syndrome, ileostomy placement, G-tube placement (on TPN), and adrenal insufficiency presents after multiple episodes of seizure-like activity at home, as well as with intractable abdominal pain and nausea. Chronic generalized abdominal pain, extensive GI history -Patient with very extensive GI history including gastroparesis and multiple abdominal surgeries -Awaiting intestinal transplant at [facility], but will hold of until better pain control is achieved. -Lactate elevated on admission, but repeat value (05/05) not elevated -Gentle IVF, electrolyte repletion -Continue bentyl, duloxetine, pepcid, protonix, gabapentin. Continue zofran and ativan staggered for nausea -05/06: CT a/p: mild stranding adjacent to the distal stomach with trace perigastric and perihepatic fluid, possibly postsurgical though gastritis/peptic ulcer disease is within the differential; no pneumoperitoneum; no intussusception; no bowel obstruction; status post subtotal colectomy with right lower quadrant ileostomy -05/07: CT a/p (this time with IV contrast and oral contrast administered via GJ tube): mild improvement in wall thickening and adjacent fat stranding at the distal stomach -Over past 24 hours patient had 6 mg dilaudid from HEADSTART TEACHER clicks and fentanyl from patch equivalent to 4mg of dilaudid, totalling 10 mg equivalents over past 24 hours which is an improvement from yesterday. -Discontinued HEADSTART TEACHER this morning around 11AM. Hopefully can wean down breakthrough pain and off HEADSTART TEACHER. -HEADSTART TEACHER clicks set to 0.5mg dilaudid q15m PRN. Her average usage has been 1-Click per hour on 05/18/22 -Consulted pain management for potential alternative treatments however no alternative recommendations at this time. -Triggers for patient's pain mostly isolated to moving G-J tube or ostomy site. May likely be caused by adhesional traction of stoma. Will need to discuss with patient's surgeon at [facility] if willing to see her for this, if not may engage local surgeon for opinion on the matter. However will treat potential soft tissue stoma infection first. -Increased her fentanyl patch from 37.5 mcg -> 50 mcg on 05/18/22 with the hope of tapering her off of HEADSTART TEACHER pump. Continue to monitor Stoma infection: -05/11 w/ bleeding at stoma and development of some swelling around stoma. -05/12 development of erythema and discharge at stoma. -Had pseudomonas bacteremia in September of 2019. -Few days of Keflex followed by Doxycycline after little improvement. -Discharge not much changed, still with episodes of moderate discharge. -Wound culture growing gram negative bacilli. -Changed from Doxycycline to Cefdinir 300mg BID on 05/16 for better gram nega tive coverage. -Infection showing much improvement after switching to cefdinir. Will continue for 5 days total. Iron deficient anemia, chronic -Ferritin at 3.5 today indicating severe iron deficiency anemia -Discussed modalities of iron supplementation and at this time most likely would be Rylee followed by iron dextran -She would like to discuss this with her mountain services manager who she messaged today, likely will not hear back until tomorrow -Hemoglobin at 7.5 today, consider transfusion if below 7 with symptoms -Continue to monitor with daily CBC. Seizure-like activity -Patient with multiple episodes of seizure-like activity which seem to be triggered by severe pain -Patient was diagnosed with PNES recently at [facility]; however, suspect symptoms moreso represent vagal activity precipitated by pain -Optimize pain control (as above) -Continue seizure and fall precautions -Recommend following up with PNES clinic at [facility] Severe protein-calorie malnutrition -Secondary to extensive GI pathology -05/06: restarting TPN -Plan to slowly introduce tube feeds pending clinical improvement Adrenal insufficiency -Chronic; hemodynamically stable -Continue hydrocortisone, fludrocortisone Covid - Resolved -Patient tested positive on 04/18/2022 (at [facility]), repeat PCR on admission still positive -Records from [facility] sent over. Isolation precautions removed. FEN: NPO other than crackers/sips, TPN per pharmacy, LR @ 80mL/hr + KCl 20Meq Code status: full code DVT ppx: SCDs Dispo: PCU. Dispo for home will depend upon adequate pain control as this is most likely the source of her seizure-like activity and syncopal episodes. (2) Syncope: (3) Abdominal pain, chronic, generalized: (4) Adrenal insufficiency: (5) Chronic malnutrition: (6) Gastroparesis: (7) Gastrostomy tube in place: (8) Intestinal motility disorder: (9) Nausea and vomiting: (10) On total parenteral nutrition (TPN): (11) Severe protein-calorie malnutrition: (12) Iron deficiency anemia: Admission and Anticipated Discharge Date Admission Date: May 05, 2022 Supervising Physician Co-Signing Physician Notes Patient seen and examined independently of PGY-2 Dr. Genao. Agree with history, exam findings, assessment and plan of care as outlined. In brief, Pilar is a 32-year-old female with hx of gastroparesis, SMA syndrome, ileostomy placement, G-tube on TPN, iron deficiency anemia, and adre nal insufficiency admitted with seizure-like episodes at home, intractable abdominal pain and nausea. Continues to have acute on chronic abdominal pain approaching her baseline however quite significant even at her baseline at this time. VS and nursing notes reviewed. Sitting up in bed. Conversational. Mild diffuse abdominal tenderness without rebound or guarding, no drainage at G tube site on my exam. Labs and imaging reviewed. Abdominal pain: Chronic generalized abdominal pain in the setting of multiple abdominal surgeries, complex GI history. Continue off of continuous HEADSTART TEACHER, with continued prn HEADSTART TEACHER. Increased fentanyl patch dosing to 50mcg to try to maintain adequate pain control. Following with physicians at [facility], and awaiting intestinal transplant. HEADSTART TEACHER with Dilaudid (0.5mg q15min PRN), continue fentanyl 37.5mcg. PO ad noel. Chronic malnutrition: Continue TPN and oral intake as tolerated. Will need arrangement of either primary care provider willing to assume care of TPN on discharge, vs. [facility] provider assuming this care. Will need to communicate with patient's primary [facility] provider prior to discharge in order to facilitate this getting set up. Seizure-like activity: Recent diagnosis of PNES by [facility] provider. Continue to monitor with supportive care. Is having prolonged EEG in future by [facility] provider. GJ site cellulitis: resolving, no surrounding erythema at site and Abx cefdinir to complete on 05/21/22. Adrenal insufficiency: Continue hydrocortisone, fludrocortisone. No stress dosing at this time. Covid 19- diagnosed 04/18/22, continue isolation precautions per hospital protocol, however, symptoms have resolved. Anemia: chronic problem not at goal. Iron levels low here, has had iron infusions in the past however has Hx intolerance to multiple iron formulas in the past so will await her communication with her Supervisor Telephone Information before trial of Rylee/iron dextrose. Transfusion if Hgb <7. Dispo: pending clinical improvement. Discussed will continue to try to wean pain medications and contact [facility] on Thursday if not continuing to improve or having worsening of symptoms. Subjective Patient seen at bedside this morning. No acute events reported overnight. Overall seems that her pain and intake is similar to yesterday. Additionally patient is concerned about her hemoglobin being as low as it is and would like to have her iron and B12 checked. She was supposed to receive an iron infusion in February at [facility]. When asking her what type of iron it was she reports to me that it is Monoferric as she has had reactions to multiple other modalities of iron infusion including Venofer and Injectafer such as having her phosphorus drop really low and her legs not being able to work after getting the infusion. The only thing thing that has seemed to work has been getting Rylee prior to getting Monoferric. She has never had iron dextran infusions before. Otherwise no new complaints at this time. Review of Systems Review of Systems: All systems reviewed & are unremarkable except as noted in HPI & below Physical Exam Constitutional: WD/WN, vitals as above Eyes: + anicteric sclerae Respiratory: normal respiratory effort, lungs clear to auscultation Cardiovascular: RRR, no murmur, no edema Gastrointestinal (Abdomen): normal bowel sounds, soft, nontender, no hepatosplenomegaly Skin: no rashes, warm and dry feeding tube site without evidence of surrounding erythema or purulent drainage colostomy site is opaque bag, however no surrounding erythema abdominal tenderness, moderate, to palpation (this is chronic) Psychiatric: A+Ox3, euthymic affect Results & Data Results & Data ([facility]) Vital Signs (Past 12 Hours) Vital Signs Temp Pulse Pulse Resp BP Pulse Ox O2 Del Method 05/18/22 02:37 36.6 C 96 H 10 L 102/66 99 Nasal Cannula 05/17/22 23:00 124 H 05/17/22 20:00 Nasal Cannula O2 Flow Rate 05/18/22 02:37 1 05/17/22 23:00 05/17/22 20:00 1
[2022-05-18] MEDS ORDERED: HYDROmorphone INJ 0.5 MG/0.5 ML SYR IV STA (19:21)
[2022-05-18] MEDS: ACETAMINOPHEN 1,000 MG/100 ML VIAL IV PRN (19:37)
[2022-05-18] MEDS ORDERED: [UNRECOGNIZED DRUG - OTHER] IV SCH (21:00)
[2022-05-18] MEDS ORDERED: AMINO ACID 8% IV SCH (21:00)
[2022-05-18] MEDS ORDERED: CENTRAL TPN IV SCH (21:00)
--- NOTE | 2022-05-18 21:25 | Billing Data ---
Date of Service May 18, 2022 Coding Level of Care Code 48552 Subseq Hosp Care Lvl 3
[2022-05-18] MEDS: METHOCARBAMOL 750 MG TABLET PO PRN (21:36)
[2022-05-18] MEDS: MELATONIN 3 MG TAB PO PRN (23:06)
[2022-05-19] MEDS: HYDROmorphone INJ 0.5 MG/0.5 ML SYR IV PRN ×5 (01:02→18:46)
[2022-05-19] MEDS: ondansetron HCL 8 MG in DEXTROSE 5% 50 ML IV PRN ×2 (01:43→12:38)
[2022-05-19] MEDS: ACETAMINOPHEN 1,000 MG/100 ML VIAL IV PRN ×3 (04:10→22:14)
[2022-05-19] MEDS: DICYCLOMINE HCL 10 MG CAP PO PRN ×3 (06:06→21:56)
[2022-05-19] MEDS: LORazepam 1 mg IV INJ IV PRN ×3 (06:06→22:13)
--- NOTE | 2022-05-19 07:10 | Hospitalist Progress Note ---
Date of Service May 19, 2022 Assessment & Plan (1) Seizure-like activity: Plan: 32yo female a complex PMH including gastroparesis, SMA syndrome, ileostomy placement, G-tube placement (on TPN), and adrenal insufficiency presents after multiple episodes of seizure-like activity at home, as well as with intractable abdominal pain and nausea. Chronic generalized abdominal pain, extensive GI history -Patient with very extensive GI history including gastroparesis and multiple abdominal surgeries -Awaiting intestinal transplant at [facility], but will hold of until better pain control is achieved. -Lactate elevated on admission, but repeat value (05/05) not elevated -Gentle IVF, electrolyte repletion -Continue bentyl, duloxetine, pepcid, protonix, gabapentin. Continue zofran and ativan staggered for nausea -05/06: CT a/p: mild stranding adjacent to the distal stomach with trace perigastric and perihepatic fluid, possibly postsurgical though gastritis/peptic ulcer disease is within the differential; no pneumoperitoneum; no intussusception; no bowel obstruction; status post subtotal colectomy with right lower quadrant ileostomy -05/07: CT a/p (this time with IV contrast and oral contrast administered via GJ tube): mild improvement in wall thickening and adjacent fat stranding at the distal stomach -Patient using FLIGHT DECK OFFICER approximately 0.5mg q1h FLIGHT DECK OFFICER clicks set to 0.5mg dilaudid q1h PRN. will try adding PO oxycodone to create outpatiet regime -Consulted pain management for potential alternative treatments however no alternative recommendations at this time. -Triggers for patient's pain mostly isolated to moving G-J tube or ostomy site. May likely be caused by adhesional traction of stoma. Will need to discuss with patient's surgeon at [facility] if willing to see her for this, if not may engage local surgeon for opinion on the matter. However will treat potential soft tissue stoma infection first. -Increased her fentanyl patch from 50 mg to 75mcg on 05/19/22 with the hope of tapering her off of FLIGHT DECK OFFICER pump. Continue to monitor Stoma infection: -05/11 w/ bleeding at stoma and development of some swelling around stoma. -05/12 development of erythema and discharge at stoma. -Had pseudomonas bacteremia in September of 2019. -Few days of Keflex followed by Doxycycline after little improvement. -Discharge not much changed, still with episodes of moderate discharge. -Wound culture growing gram negative bacilli. -Changed from Doxycycline to Cefdinir 300mg BID on 05/16 for better gram negative coverage. -Infection showing much improvement after switching to cefdinir. Will continue for 5 days total. Iron deficient anemia, chronic -Ferritin at 3.5 today indicating severe iron deficient anemia -Discussed modalities of iron supplementation and at this time most likely would be Rylee followed by iron dextran -She would like to discuss this with her international account executive, yet to hear back -Hemoglobin at 7.8 today, consider transfusion if below 7 with symptoms -Continue to monitor with daily CBC. Seizure-like activity -Patient with multiple episodes of seizure-like activity which seem to be triggered by severe pain -Patient was diagnosed with PNES recently at [facility]; however, suspect symptoms moreso represent vagal activity precipitated by pain -Optimize pain control (as above) -Continue seizure and fall precautions -Recommend following up with PNES clinic at [facility] Severe protein-calorie malnutrition -Secondary to extensive GI pathology -05/06: restarting TPN -Plan to slowly introduce tube feeds pending clinical improvement Adrenal insufficiency -Chronic; hemodynamically stable -Continue hydrocortisone, fludrocortisone Covid - Resolved -Patient tested positive on 04/18/2022 (at [facility]), repeat PCR on admission still positive -Records from [facility] sent over. Isolation precautions removed. FEN: NPO other than crackers/sips, TPN per pharmacy, LR @ 80mL/hr + KCl 20Meq Code status: full code DVT ppx: SCDs Dispo: PCU. Dispo for home will depend upon adequate pain control as this is most likely the source of her seizure-like activity and syncopal episodes. (2) Syncope: (3) Abdominal pain, chronic, generalized: (4) Adrenal insufficiency: (5) Chronic malnutrition: (6) Gastroparesis: (7) Gastrostomy tube in place: (8) Intestinal motility disorder: (9) Nausea and vomiting: (10) On total parenteral nutrition (TPN): (11) Severe protein-calorie malnutrition: (12) Iron deficiency anemia: Admission and Anticipated Discharge Date Admission Date: May 05, 2022 Supervising Physician Co-Signing Physician Notes I personally examined the patient and verified all solorzano points of history and exam, discussed case, and agree with decision making with Dr Velazquez. Bad day with belly pain yesterdaybut noted she needed to change her ostomy. Does note that she is feeling improvement in pain control with fentanyl patch dose increasedstill just not under adequate control yet. Also notes that she is waiting to hear back from her international account executive in regards to iron, and believes she is due for a B12 shot. Very tired today. Vitals noted, in general she is very fatigued somewhat pale. HEENT normocephalic atraumatic mucous membranes moist. Breathing unlabored no accessory muscle use good effort. Skin shows no rashes no pallor or icterus. Neuro without focal deficits. Abdominal pain: Chronic generalized abdominal pain in the setting of multiple abdominal surgeries, complex GI history. Increase fentanyl patch, continue as needed Dilaudid, give trial to p.o. liquid oxycodone. Work towards outpatient management plan. Chronic malnutrition: While I agree with [facility] that tube feeds would be superior if she can tolerate, she has tried tube feeds she/her mom note for about 2-1/2 months at home, and she has not been able to tolerate more than maybe 50% of her goal. In discussion with multiple members of the team, including dietitian, we are unfortunately unable to conceive of a scenario in which she would be able to maintain adequate nutrition without TPN at her current status. To that end, working on setting up outpatient TPNshe is to meet with an outpatient TPN provider on 05/22. Seizure-like activity: Recent diagnosis of PNES by [facility] provider. Continue to monitor with supportive care. Is having prolonged EEG in future by [facility] provider. Episodes really seem to be provoked by painduring previous hospital stay they largely appear to be an amplified vagal response, now seem to largely be an amplified vagal trigger but then a PNES phenotype once the episode has started. Again predominantly/entirely pain driven. GJ site cellulitis: resolving, Abx cefdinir to complete on 05/21/22. Adrenal insufficiency: Continue hydrocortisone, fludrocortisone. No stress dosing at this time. Covid 19- diagnosed 04/18/22, continue isolation precautions per hospital protocol, however, symptoms have resolved. Anemia: chronic problem not at goal. Iron levels low here, has had iron infusions in the past however has Hx intolerance to multiple iron formulas in the past so will await her communication with her Director Of Purchasing before trial of Rylee/iron dextrose. Transfusion if Hgb <7. Continue B12 shots Dispo: pending clinical improvement. Working on home pain and nutrition plan, while she is/family coordinate follow-up with [facility]. No immediate need for transfer at this time. Subjective Patient seen at bedside, calm cooperative, states her abd pain is currently not at goal, used 2mg dilaudid overnight. Patient states tolerating sips of water well but abd pain worsened with food, plans on going home with TPN, states she is on intestinal transplant list. Mother has been staying overnight with her. Sitter present in room. Patient denies any SOB. Review of Systems Review of Systems: All systems reviewed & are unremarkable except as noted in HPI & below Physical Exam Constitutional: + thin and cooperative Eyes: PERRL, conjunctivae normal, anicteric sclerae ENMT: external ear and nose normal, oropharynx normal Neck: trachea midline, no thyromegaly Respiratory: normal respiratory effort, lungs clear to auscultation Cardiovascular: RRR, no murmur, no edema Chest (Breasts): Chest: normal inspection of chest Gastrointestinal (Abdomen): Inspection/Auscultation: + abdominal surgical scar (with colostomy bag); abdomen not distended Percussion/Palpation: + abdomen tender (around ostomy site) and + guarding Skin: no rashes, warm and dry Results & Data Results & Data ([facility]) Vital Signs (Past 12 Hours) Vital Signs Temp Pulse Pulse Pulse Resp BP BP 05/19/22 02:41 36.6 C 117 H 18 106/74 05/19/22 01:16 05/19/22 01:00 36.6 C 122 H 16 114/71 05/18/22 22:52 94 H 05/18/22 23:11 36.9 C 118 H 12 114/72 05/18/22 20:00 Pulse Ox O2 Del Method O2 Flow Rate 05/19/22 02:41 99 Nasal Cannula 1 05/19/22 01:16 Nasal Cannula 1 05/19/22 01:00 98 Nasal Cannula 1 05/18/22 22:52 05/18/22 23:11 99 Nasal Cannula 1 05/18/22 20:00 Nasal Cannula 1 Resident Activity Tracking Resident Involvement: Resident Care Provided Care Provided: Adult Hospital Medicine
[2022-05-19 07:12] LABS: Hematocrit (blood only) 25.4 % (34.1-44.9); Hemoglobin 7.8 g/dl (12.0-16.0); Mean Corpuscular Hemoglobin 27.9 pg (25.0-34.0); Mean Corpuscular Hgb Conc 30.7 g/dL (32.0-36.0); Mean Corpuscular Volume 90.7 fL (80.0-100.0); Mean Platelet Volume 11.1 fL (9.4-12.3); Platelet Count 254 K/uL (130-400); RDW Coefficient of Variation 13.2 % (11.5-14.5); RDW Standard Deviation 44.2 fL (36.4-46.3); White Blood Count 6.03 K/ul (4.8-10.8)
[2022-05-19 07:59] LABS: BUN Creatinine Ratio 26.2 (10-20); Creatinine Clr Calc Pharmacy 126.2 ml/min; Est GFR (Non-African American) 121.7 ml/min; Phosphorus 4.4 mg/dl (2.5-4.9); Potassium 3.8 mmol/L (3.5-5.1)
[2022-05-19] MEDS: DULoxetine HCL 60 MG CAP PO SCH (08:46)
[2022-05-19] MEDS: FLUDROCORTISONE ACETATE 0.1 MG TAB PO SCH ×2 (08:46→21:55)
[2022-05-19] MEDS: FAMOTIDINE 20 MG TAB PO SCH ×2 (08:46→21:54)
[2022-05-19] MEDS: GABAPENTIN 250 MG/5 ML 470 ML BTL PO SCH ×3 (08:46→21:52)
[2022-05-19] MEDS: CEFDINIR 300 MG CAP PO SCH ×2 (08:47→21:54)
[2022-05-19] MEDS: HYDROCORTISONE 10 MG TAB PO SCH ×2 (08:48→13:26)
[2022-05-19] MEDS: PANTOprazole 40 MG TAB PO SCH (08:49)
[2022-05-19] MEDS: CHECK fentaNYL PATCH PLACEMENT SCH ×3 (08:51→16:58)
--- NOTE | 2022-05-19 10:27 | Pharmacy Report ---
PHA: Parenteral Nutrition Con - Date of Service May 19, 2022 - Scope Pharmacy was consulted on 05/06 to manage parenteral nutrition orders for this patient. - Subjective The patient is currently on day 14 of continuation of chronic central parenteral nutrition - Objective Height: 5 ft 6 in Weight: 62.6 kg Diet: Clear Liquid Intake & Output (24hrs):: Intake & Output 05/17/22 05/18/22 05/19/22 05/20/22 06:59 06:59 06:59 06:59 Intake Total / 4538.528 / 4538.528 2649.333 / 2649.333 Output Total 3875 / 3875 3750 / 3750 4650 / 4650 375 / 375 Balance -1878.75 / -1878.75 788.528 / 788.528 -2000.667 / -1999.667 -375 / -375 Weight 61.9 kg 62.5 kg 62.6 kg Laboratory Data (Last 24 Hr):: 05/19/22 06:10 Sodium 140 Potassium 3.8 Chloride 105 Carbon Dioxide 30 BUN 16 Creatinine 0.61 Glucose 112 H Calcium 8.0 L Phosphorus 4.4 Magnesium 2.0 Nutrition Assessment:: Please refer to the Notes section of the EMR for the most recent paper cleaner note. - Assessment F: cyclic TPN over 18 hours E: WNL; continue current TPN electrolytes have been stable N: TG previously elevated; continue 3x/wk (MWF) SMOF lipids- continue to monitor - Plan For day 14 of PN administration, the following will be ordered: Macronutrients Amino acids 80 grams/day Dextrose 140 grams/day Lipids 50 grams/day (3x/wk) Micronutrients Sodium chloride 120 mEq Potassium phosphate 12 mMol Potassium chloride 80 mEq Potassium acetate 40 mEq Magnesium sulfate 2.0 mEq Calcium gluconate 8.0 mEq Folic Acid 1 mg Thiamine 100 mg Additional additives: Total volume 1136.2 mL (without lipids) to be infused over 18 hrs will provide 796 kcal/day --> 1296 kcal/day with lipids Final osmolarity 1808.9 mOsm/L (maximum for PPN is 900 mOsm/L) Labs, as indicated, will be ordered per protocol Pharmacy will continue to follow and adjust parenteral nutrition orders on a daily basis. Thank you for allowing us to participate in the care of this patient.
[2022-05-19] MEDS: fentaNYL 25 MCG/HR TDSY TD SCH (14:47)
[2022-05-19] MEDS: [UNRECOGNIZED DRUG - REMARK] SCH (14:47)
[2022-05-19] MEDS: HEPARIN 100 UNIT/ML 5ML FLUSH FLUSH PRN (15:14)
[2022-05-19] MEDS ORDERED: NALOXONE HCL 0.4 MG/1 ML VIAL/CARP IV PRN (15:44)
[2022-05-19] MEDS: HYDROmorphone PCA 30 MG/30 ML IV PRN (16:39)
[2022-05-19] MEDS: SODIUM CHLORIDE 0.9% 1000ML 1,000 ML IV SCH (16:57)
--- NOTE | 2022-05-19 17:14 | Billing Data ---
Date of Service May 19, 2022 Coding Level of Care Code 00844 Subseq Hosp Care Lvl 3
[2022-05-19] MEDS ORDERED: CYANOCOBALAMIN 1000 MCG/ML VIAL IM ONE (18:00)
[2022-05-19] MEDS ORDERED: [UNRECOGNIZED DRUG - OTHER] IV SCH (21:00)
[2022-05-19] MEDS ORDERED: CENTRAL TPN IV SCH (21:00)
[2022-05-19] MEDS ORDERED: AMINO ACID 8% IV SCH (21:00)
[2022-05-19] MEDS: METHOCARBAMOL 750 MG TABLET PO PRN (21:56)
[2022-05-19] MEDS: MELATONIN 3 MG TAB PO PRN (22:13)
[2022-05-20] MEDS ORDERED: FAT EMUL/SOY/MCT/OLIV/FISH OIL 50 GM/250 ML BAG IV SCH
[2022-05-20] MEDS: SODIUM CHLORIDE 0.9% 1000ML 1,000 ML IV SCH (00:12)
[2022-05-20] MEDS: CHECK fentaNYL PATCH PLACEMENT SCH ×6 (00:28→14:59)
[2022-05-20] MEDS: HYDROmorphone INJ 0.5 MG/0.5 ML SYR IV PRN ×5 (00:59→23:15)
[2022-05-20] MEDS: LORazepam 1 mg IV INJ IV PRN ×2 (06:25→12:59)
[2022-05-20] MEDS: DICYCLOMINE HCL 10 MG CAP PO PRN ×2 (06:25→17:48)
[2022-05-20] MEDS: ACETAMINOPHEN 1,000 MG/100 ML VIAL IV PRN (06:27)
--- NOTE | 2022-05-20 06:44 | Hospitalist Progress Note ---
Date of Service May 20, 2022 Assessment & Plan (1) Seizure-like activity: Plan: 32yo female a complex PMH including gastroparesis, SMA syndrome, ileostomy placement, G-tube placement (on TPN), and adrenal insufficiency presents after multiple episodes of seizure-like activity at home, as well as with intractable abdominal pain and nausea. Chronic generalized abdominal pain, extensive GI history -Patient with very extensive GI history including gastroparesis and multiple abdominal surgeries -Awaiting intestinal transplant at [facility], but will hold of until better pain control is achieved. -Lactate elevated on admission, but repeat value (05/05) not elevated -Gentle IVF, electrolyte repletion -Continue bentyl, duloxetine, pepcid, protonix, gabapentin. Continue zofran and ativan staggered for nausea -05/06: CT a/p: mild stranding adjacent to the distal stomach with trace perigastric and perihepatic fluid, possibly postsurgical though gastritis/peptic ulcer disease is within the differential; no pneumoperitoneum; no intussusception; no bowel obstruction; status post subtotal colectomy with right lower quadrant ileostomy -05/07: CT a/p (this time with IV contrast and oral contrast administered via GJ tube): mild improvement in wall thickening and adjacent fat stranding at the distal stomach -Patient using TECHNICAL ADMINISTRATIVE ASSISTANT approximately 0.5mg q1h TECHNICAL ADMINISTRATIVE ASSISTANT clicks set to 0.5mg dilaudid q1h PRN. added liquid oxycodone 7.5mg q1hr PRN, use as first option to wean to fully PO regime will keep dilaudid 0.5mg q1hr PRN as needed for her pain related seizures. -Consulted pain management for potential alternative treatments however no alternative recommendations at this time. -Triggers for patient's pain mostly isolated to moving G-J tube or ostomy site. May likely be caused by adhesional traction of stoma. Will need to discuss with patient's surgeon at [facility] if willing to see her for this, if not may engage local surgeon for opinion on the matter. However will treat potential soft tissue stoma infection first. -Increased her fentanyl patch from 50 mg to 75mcg on 05/19/22 with the hope of tapering her off of TECHNICAL ADMINISTRATIVE ASSISTANT pump. Continue to monitor Stoma infection: -05/11 w/ bleeding at stoma and development of some swelling around stoma. -05/12 development of erythema and discharge at stoma. -Had pseudomonas bacteremia in September of 2019. -Few days of Keflex followed by Doxycycline after little improvement. -Discharge not much changed, still with episodes of moderate discharge. -Wound culture growing gram negative bacilli. -Changed from Doxycycline to Cefdinir 300mg BID on 05/16 for better gram negative coverage. -Infection showing much improvement after switching to cefdinir. Will continue for 5 days total. Iron deficient anemia, chronic -Ferritin at 3.5 today indicating severe iron deficient anemia -Discussed modalities of iron supplementation and at this time most likely would be Rylee followed by iron dextran -She would like to discuss this with her medical laboratory scientist, yet to hear back -Hemoglobin at 7.8 today, consider transfusion if below 7 with symptoms -Continue to monitor with daily CBC. Seizure-like activity -Patient with multiple episodes of seizure-like activity which seem to be triggered by severe pain -Patient was diagnosed with PNES recently at [facility]; however, suspect symptoms moreso represent vagal activity precipitated by pain -Optimize pain control (as above) -Continue seizure and fall precautions -Recommend following up with PNES clinic at [facility] Severe protein-calorie malnutrition -Secondary to extensive GI pathology -05/06: restarting TPN -Plan to slowly introduce tube feeds pending clinical improvement Adrenal insufficiency -Chronic; hemodynamically stable -Continue hydrocortisone, fludrocortisone Covid - Resolved -Patient tested positive on 04/18/2022 (at [facility]), repeat PCR on admission still positive -Records from [facility] sent over. Isolation precautions removed. FEN: NPO other than crackers/sips, TPN per pharmacy, LR @ 80mL/hr + KCl 20Meq Code status: full code DVT ppx: SCDs Dispo: PCU. Dispo for home will depend upon adequate pain control as this is most likely the source of her seizure-like activity and syncopal episodes. (2) Syncope: (3) Abdominal pain, chronic, generalized: (4) Adrenal insufficiency: (5) Chronic malnutrition: (6) Gastroparesis: (7) Gastrostomy tube in place: (8) Intestinal motility disorder: (9) Nausea and vomiting: (10) On total parenteral nutrition (TPN): (11) Severe protein-calorie malnutrition: (12) Iron deficiency anemia: Admission and Anticipated Discharge Date Admission Date: May 05, 2022 Supervising Physician Co-Signing Physician Notes I personally examined the patient and verified all solorzano points of history and exam, discussed case, and agree with decision making with Dr Velazquez. Does feel a bit of improvement with increase in fentanyl patch. Willing to try p.o. oxycodone first. Still waiting to hear back from medical laboratory scientist. I tried to call her transplant center, but unfortunately was not able to try to call until 4:59 PMat which point when I called the line said that they were closed for the day and to call back tomorrow. Vitals noted, in general she is very fatigued somewhat pale. HEENT normocephalic atraumatic mucous membranes moist. Breathing unlabored no accessory muscle use good effort. Skin shows no rashes no pallor or icterus. Neuro without focal deficits. Abdominal pain: Chronic generalized abdominal pain in the setting of multiple abdominal surgeries, complex GI history. Increased fentanyl patch, continue as needed Dilaudid, give trial to p.o. liquid oxycodone (today encouraged to take first). Work towards outpatient management plan. Chronic malnutrition: While I agree with [facility] that tube feeds would be superior if she can tolerate, she has tried tube feeds she/her mom note for about 2-1/2 months at home, and she has not been able to tolerate more than maybe 50% of her goal. In discussion with multiple members of the team, including dietitian, we are unfortunately unable to conceive of a scenario in which she would be able to maintain adequate nutrition without TPN at her current status. To that end, working on setting up outpatient TPNshe is to meet with an outpatient TPN provider on 05/22. Hopefully will be able to make this appointment Seizure-like activity: Recent diagnosis of PNES by [facility] provider. Continue to monitor with supportive care. Is having prolonged EEG in future by [facility] provider. Episodes really seem to be provoked by painduring previous hospital stay they largely appear to be an amplified vagal response, now seem to largely be an amplified vagal trigger but then a PNES phenotype once the episode has started. Again appears to be predominantly/entirely pain driven. GJ site cellulitis: resolving, Abx cefdinir to complete on 05/21/22. Adrenal insufficiency: Continue hydrocortisone, fludrocortisone. No stress dosing at this time. Covid 19- diagnosed 04/18/22, continue isolation precautions per hospital protocol, however, symptoms have resolved. Anemia: chronic problem not at goal. Iron levels low here, has had iron infusions in the past however has Hx intolerance to multiple iron formulas in the past so will await her communication with her Patternmaker Wood before trial of Rylee/iron dextrose. Transfusion if Hgb <7. Continue B12 shots Dispo: pending clinical improvement. Working on home pain and nutrition plan, while she is/family coordinate follow-up with [facility]. No immediate need for transfer at this time. Subjective Patient seen at bedside, cooperative, states minimal improvement of pain with additional fentanyl patch. States has used tablet oxycodone in the past but seems to absorb liquid version better. Patient has outpatient f/u appointments tomorrow and , has not heard back from hematology yet. Per nursing patient did not tolerate TECHNICAL ADMINISTRATIVE ASSISTANT set at q90min, was reverted to q1hr Review of Systems Review of Systems: All systems reviewed & are unremarkable except as noted in HPI & below Physical Exam Constitutional: + thin and cooperative Eyes: PERRL, conjunctivae normal, anicteric sclerae ENMT: external ear and nose normal, oropharynx normal Neck: trachea midline, no thyromegaly Respiratory: normal respiratory effort, lungs clear to auscultation Cardiovascular: RRR, no murmur, no edema Chest (Breasts): Chest: normal inspection of chest Gastrointestinal (Abdomen): Inspection/Auscultation: + abdominal surgical scar (with colostomy bag); abdomen not distended Percussion/Palpation: + abdomen tender (around ostomy site) and + guarding Skin: no rashes, warm and dry Results & Data Results & Data ([facility]) Vital Signs (Past 12 Hours) Vital Signs Temp Pulse Resp BP Pulse Ox O2 Del Method 05/20/22 03:44 36.7 C 90 14 100/66 98 Room Air 05/19/22 22:32 36.6 C 102 H 15 113/75 99 Room Air 05/19/22 19:16 36.8 C 106 H 16 103/69 98 Room Air Resident Activity Tracking Resident Involvement: Resident Care Provided Care Provided: Adult Hospital Medicine
[2022-05-20 07:08] LABS: Basophils # (auto) 0.04 K/uL (0-0.2); Basophils % (auto) 0.7 %; Eosinophils # (auto) 0.25 K/uL (0-0.50); Eosinophils % (auto) 4.6 %; Hematocrit (blood only) 24.3 % (34.1-44.9); Hemoglobin 7.7 g/dl (12.0-16.0); Immature Granulocytes # (auto) 0.02 K/uL (0.00-0.02); Immature Granulocytes % (auto) 0.4 %; Lymphocytes # (auto) 1.38 K/uL (1.2-3.4); Lymphocytes % (auto) 25.5 %; Mean Corpuscular Hemoglobin 28.5 pg (25.0-34.0); Mean Corpuscular Hgb Conc 31.7 g/dL (32.0-36.0); Mean Platelet Volume 11.1 fL (9.4-12.3); Monocytes # (auto) 0.71 K/uL (0.24-0.82); Monocytes % (auto) 13.1 %; Neutrophils # (auto) 3.01 K/uL (1.4-6.5); Neutrophils % (auto) 55.7 %; Platelet Count 250 K/uL (130-400); RDW Coefficient of Variation 13.3 % (11.5-14.5); RDW Standard Deviation 44.3 fL (36.4-46.3); White Blood Count 5.41 K/ul (4.8-10.8)
[2022-05-20 07:30] LABS: Polychromasia 1+; Tear Drop Cells 1+
[2022-05-20 07:35] LABS: BUN Creatinine Ratio 31.4 (10-20); Calcium 7.7 mg/dl (8.5-10.1); Est GFR (African American) 149.6 ml/min
[2022-05-20] MEDS: GABAPENTIN 250 MG/5 ML 470 ML BTL PO SCH ×3 (08:52→21:34)
[2022-05-20] MEDS: [UNRECOGNIZED DRUG - REMARK] SCH (08:53)
[2022-05-20] MEDS: HYDROCORTISONE 10 MG TAB PO SCH ×2 (08:58→13:42)
[2022-05-20] MEDS ORDERED: CYANOCOBALAMIN 1000 MCG/ML VIAL IM ONE (09:00)
[2022-05-20] MEDS: DULoxetine HCL 60 MG CAP PO SCH (09:01)
[2022-05-20] MEDS: PANTOprazole 40 MG TAB PO SCH (09:01)
[2022-05-20] MEDS: CEFDINIR 300 MG CAP PO SCH ×2 (09:01→21:21)
[2022-05-20] MEDS: FAMOTIDINE 20 MG TAB PO SCH ×2 (09:02→21:21)
[2022-05-20] MEDS: FLUDROCORTISONE ACETATE 0.1 MG TAB PO SCH ×2 (09:03→21:21)
[2022-05-20] MEDS: oxyCODONE HCL SOLN 5 MG/5 ML UDC PO PRN ×3 (13:48→21:34)
[2022-05-20] MEDS: [UNRECOGNIZED DRUG - REMARK] SCH (14:59)
[2022-05-20] MEDS ORDERED: HYDROmorphone INJ 0.5 MG/0.5 ML SYR IV STA (15:55)
[2022-05-20] MEDS ORDERED: HYDROmorphone INJ 0.5 MG/0.5 ML SYR ONE (15:59)
--- NOTE | 2022-05-20 17:01 | Billing Data ---
Date of Service May 20, 2022 Coding Level of Care Code 94841 SUB INP/OBS CARE
[2022-05-20] MEDS ORDERED: CENTRAL TPN IV SCH (21:00)
[2022-05-20] MEDS ORDERED: AMINO ACID 8% IV SCH (21:00)
[2022-05-20] MEDS ORDERED: [UNRECOGNIZED DRUG - OTHER] IV SCH (21:00)
[2022-05-20] MEDS: METHOCARBAMOL 750 MG TABLET PO PRN (21:24)
[2022-05-20] MEDS: ondansetron HCL 8 MG in DEXTROSE 5% 50 ML IV PRN (23:17)
[2022-05-21] MEDS: CHECK fentaNYL PATCH PLACEMENT SCH ×6 (00:02→15:47)
[2022-05-21] MEDS: LORazepam 1 mg IV INJ IV PRN ×4 (00:28→23:00)
[2022-05-21] MEDS: MELATONIN 3 MG TAB PO PRN ×2 (00:28→22:56)
[2022-05-21] MEDS: DICYCLOMINE HCL 10 MG CAP PO PRN ×4 (00:28→22:59)
[2022-05-21] MEDS: HYDROmorphone INJ 0.5 MG/0.5 ML SYR IV PRN ×5 (02:18→17:22)
[2022-05-21] MEDS: oxyCODONE HCL SOLN 5 MG/5 ML UDC PO PRN ×6 (02:57→21:41)
--- NOTE | 2022-05-21 07:41 | Hospitalist Progress Note ---
Date of Service May 21, 2022 Assessment & Plan (1) Seizure-like activity: Plan: 32yo female a complex PMH including gastroparesis, SMA syndrome, ileostomy placement, G-tube placement (on TPN), and adrenal insufficiency presents after multiple episodes of seizure-like activity at home, as well as with intractable abdominal pain and nausea. Chronic generalized abdominal pain, extensive GI history -Patient with very extensive GI history including gastroparesis and multiple abdominal surgeries -Possible intestinal transplant at [facility] -Lactate elevated on admission, but repeat value (05/05) not elevated -Gentle IVF, electrolyte repletion -Continue bentyl, duloxetine, pepcid, protonix, gabapentin. Continue zofran and ativan staggered for nausea -05/06: CT a/p: mild stranding adjacent to the distal stomach with trace carol gastric and perihepatic fluid, possibly postsurgical though gastritis/peptic ulcer disease is within the differential; no pneumoperitoneum; no intussusception; no bowel obstruction; status post subtotal colectomy with right lower quadrant ileostomy -05/07: CT a/p w/IV and oral contrast via G tube: mild improvement in wall thickening and adjacent fat stranding at the distal stomach -Patient using TWO WAY RADIO INSTALLER approximately 0.5mg q1h TWO WAY RADIO INSTALLER clicks set to 0.5mg dilaudid q1h PRN. added liquid oxycodone 7.5mg q1hr PRN, use as first option to wean to fully PO regime will keep dilaudid 0.5mg q2hr PRN as needed for her pain related seizures. -Consulted pain management for potential alternative treatments =no alternative recommendations at this time. -Triggers for patient's pain mostly isolated to moving G-J tube or ostomy site. May likely be caused by adhesional traction of stoma. Will need to discuss with patient's surgeon at [facility] if willing to see her for this, if not may engage local surgeon for opinion on the matter. However will treat potential soft tissue stoma infection first. -Increased her fentanyl patch from 50 mg to 75mcg on 05/19/22 with the hope of tapering her off of TWO WAY RADIO INSTALLER pump. Continue to monitor - given patient's extensive narcotic usage and chronic pain with limited possibility of improvement, may be reasonable to consult palliative care Stoma infection: -05/11 w/ bleeding at stoma and development of some swelling around stoma. -05/12 development of erythema and discharge at stoma. -Had pseudomonas bacteremia in September of 2019. -Few days of Keflex followed by Doxycycline after little improvement. -Discharge not much changed, still with episodes of moderate discharge. -Wound culture growing gram negative bacilli. -Changed from Doxycycline to Cefdinir 300mg BID on 05/16 for better gram negative coverage. -Infection showing much improvement after switching to cefdinir. Will continue for 5 days total. Iron deficient anemia, chronic -Ferritin at 3.5 today indicating severe iron deficient anemia -Discussed modalities of iron supplementation and at this time most likely would be Rylee followed by iron dextran -She would like to discuss this with her rolled ham lacer, yet to hear back -Hemoglobin at 7.8 today, consider transfusion if below 7 with symptoms -Continue to monitor with daily CBC. Seizure-like activity -Patient with multiple episodes of seizure-like activity which seem to be triggered by severe pain -Patient was diagnosed with PNES recently at [facility]; however, suspect symptoms moreso represent vagal activity precipitated by pain -Optimize pain control (as above) -Continue seizure and fall precautions -Recommend following up with PNES clinic at [facility] - Given that her seizure-like activity resolves with and without narcotic usage, may be reasonable to consider non-narcotic options to manage her seizure like symptoms Severe protein-calorie malnutrition -Secondary to extensive GI pathology -05/06: restarting TPN -Plan to slowly introduce tube feeds pending clinical improvement Adrenal insufficiency -Chronic; hemodynamically stable -Continue hydrocortisone, fludrocortisone Covid - Resolved -Patient tested positive on 04/18/2022 (at [facility]), repeat PCR on admission still positive -Records from [facility] sent over. Isolation precautions removed. FEN: NPO other than crackers/sips, TPN per pharmacy, LR @ 80mL/hr + KCl 20Meq Code status: full code DVT ppx: SCDs Dispo: PCU. Dispo for home will depend upon adequate pain control as this is most likely the source of her seizure-like activity and syncopal episodes. (2) Syncope: (3) Abdominal pain, chronic, generalized: (4) Adrenal insufficiency: (5) Chronic malnutrition: (6) Gastroparesis: (7) Gastrostomy tube in place: (8) Intestinal motility disorder: (9) Nausea and vomiting: (10) On total parenteral nutrition (TPN): (11) Severe protein-calorie malnutrition: (12) Iron deficiency anemia: Admission and Anticipated Discharge Date Admission Date: May 05, 2022 Supervising Physician Co-Signing Physician Notes I personally examined the patient and verified all solorzano points of history and exam, discussed case, and agree with decision making with Dr Velazquez. Extensive discussions on pain control. Encouraged using oral oxycodone preferential to p.o. Dilaudideven if this means being more liberal with p.o. oxycodone to try to stay ahead of the pain. Had multiple pain related PNES episodes today. Extensive discussion with patient's mother as well. [facility] yet received. Vitals noted, in general she is very fatigued somewhat pale. HEENT normocephalic atraumatic mucous membranes moist. Breathing unlabored no accessory muscle use good effort. Skin shows no rashes no pallor or icterus. Neuro without focal deficits. Stoma examinedappears to be folded over and puckered, the area where stool comes out is very inferior and at the margin of the opening, there is another area that is folded at the top. Earlier in the day, patient had another pain related PNES episode with me at the bedsideshe rolled over in pain, had several minutes of shaking, vitals were stable the whole time except for tachycardia up to about [id number]. After the episode abated she was very fatigued. Abdominal pain: Chronic generalized abdominal pain in the setting of multiple abdominal surgeries, complex GI history. Continue to titrate pain management with IV narcotics, transdermal/p.o. narcoticsworking towards a potentially viable outpatient plan. Given the severity of her pain, it does not necessarily seem realistic at the current time to have her off of narcotics. I have been trying to get in contact with [facility] about considering an ostomy revision given how much her pain seems to be related to her ostomy, bag changes, etc.as well as the anatomic appearance of the ostomy itself. Chronic malnutrition: While I agree with [facility] that tube feeds would be superior if she can tolerate, she has tried tube feeds she/her mom note for about 2-1/2 months at home, and she has not been able to tolerate more than maybe 50% of her goal. In discussion with multiple members of the team, including dietitian, we are unfortunately unable to conceive of a scenario in which she would be able to maintain adequate nutrition without TPN at her current status. To that end, working on setting up outpatient TPNshe is to meet with an outpatient TPN provider on 05/22. Hopefully will be able to make this appointmentdiscussed with mother that even with it being a telehealth appointment, it may not be allowed as an inpatient given that is an outpatient appointment, and also that there might be a risk of even if the provider sees her that it could end up as an [id number] expense. She understands and is willing to accept that risk. Seizure-like activity: Recent diagnosis of PNES by [facility] provider. Continue to monitor with supportive care. Is having prolonged EEG in future by [facility] provider. Episodes really seem to be provoked by painduring previous hospital stay they largely appear to be an amplified vagal response, now seem to largely be an amplified vagal trigger but then a PNES phenotype once the episode has started. Again appears to be predominantly/entirely pain driven, including episode witnessed today GJ site cellulitis: resolving, Abx cefdinir to complete on 05/21/22. Adrenal insufficiency: Continue hydrocortisone, fludrocortisone. No stress dosing at this time. Covid 19- diagnosed 04/18/22, continue isolation precautions per hospital protocol, however, symptoms have resolved. Anemia: chronic problem not at goal. Iron levels low here, has had iron infusions in the past however has Hx intolerance to multiple iron formulas in the past so will await her communication with her Instructor Pilot before trial of Rylee/iron dextrose. Transfusion if Hgb <7. Continue B12 shots Dispo: pending clinical improvement. Working on home pain and nutrition plan, while she is/family coordinate follow-up with [facility]. No immediate need for transfer at this time but I am fairly suspicious she would benefit from an ostomy revision. Time spent at least about 5:30 PM to 6:30 PM, as well as a revisited about 728. Greater than 60 minutes [id number]. Subjective Patient seen at bedside, calm cooperative. She states the liquid oxycodone is less effective than the dilaudid but she is trying to rely on oxycodone more at this time. Denies SOB. Per mom patient has had pain seizures all night, is concerned that patient's seizures cannot be managed in outpatient. Patient's mother made aware that if her pain is controlled she should not have seizures. Review of Systems Review of Systems: All systems reviewed & are unremarkable except as noted in HPI & below Physical Exam Constitutional: + thin and cooperative Eyes: PERRL, conjunctivae normal, anicteric sclerae ENMT: external ear and nose normal, oropharynx normal Neck: trachea midline, no thyromegaly Respiratory: normal respiratory effort, lungs clear to auscultation Cardiovascular: RRR, no murmur, no edema Chest (Breasts): Chest: normal inspection of chest Gastrointestinal (Abdomen): Inspection/Auscultation: + abdominal surgical scar (with colostomy bag); abdomen not distended Percussion/Palpation: + abdomen tender (around ostomy site) and + guarding Skin: no rashes, warm and dry Results & Data Results & Data ([facility]) Vital Signs (Past 12 Hours) Vital Signs Temp Pulse Pulse Resp BP BP Pulse Ox 05/21/22 04:21 36.7 C 85 18 103/69 98 05/21/22 02:10 108 H 18 98/62 L 98 05/20/22 20:00 05/20/22 23:00 100 H 05/20/22 23:16 36.8 C 121 H 18 112/61 95 05/20/22 20:11 125 H 18 110/65 99 05/20/22 19:41 36.8 C 104 H 16 110/74 97 O2 Del Method 05/21/22 04:21 Room Air 05/21/22 02:10 Room Air 05/20/22 20:00 Room Air 05/20/22 23:00 05/20/22 23:16 Room Air 05/20/22 20:11 Room Air 05/20/22 19:41 Room Air Resident Activity Tracking Resident Involvement: Resident Care Provided Care Provided: Adult Hospital Medicine
--- NOTE | 2022-05-21 07:46 | XRay Report ---
KUB CLINICAL HISTORY: Abdominal pain. COMPARISON STUDY: CT of the abdomen and pelvis May 07, 2022 and KUB May 13, 2022. FINDINGS: There is no radiographic evidence for a bowel obstruction. A right lower quadrant ostomy is noted. There are cholecystectomy clips. Gastrojejunostomy tube is in place. Hyperdense material with in the rectum is again noted. IMPRESSION: No evidence for a bowel obstruction. ACT 112: Negative or not required by law. Electronically signed by: Ruperto Lopez M.D. 05/21/2022 7:45 AM
[2022-05-21] MEDS: HYDROCORTISONE 10 MG TAB PO SCH ×2 (08:59→14:51)
[2022-05-21] MEDS: DULoxetine HCL 60 MG CAP PO SCH (08:59)
[2022-05-21] MEDS: FLUDROCORTISONE ACETATE 0.1 MG TAB PO SCH ×2 (08:59→20:51)
[2022-05-21] MEDS: PANTOprazole 40 MG TAB PO SCH (08:59)
[2022-05-21] MEDS: FAMOTIDINE 20 MG TAB PO SCH ×2 (08:59→20:51)
[2022-05-21] MEDS: CEFDINIR 300 MG CAP PO SCH ×2 (08:59→20:49)
[2022-05-21] MEDS: fentaNYL 50 MCG/HR TDSY TD SCH (09:01)
[2022-05-21] MEDS: [UNRECOGNIZED DRUG - REMARK] SCH (09:07)
[2022-05-21] MEDS: GABAPENTIN 250 MG/5 ML 470 ML BTL PO SCH ×3 (09:10→20:48)
[2022-05-21 10:27] LABS: Bilirubin,Total 0.3 mg/dl (0.2-1.0)
[2022-05-21 10:28] LABS: BUN Creatinine Ratio 27.1 (10-20); Calcium 8.5 mg/dl (8.5-10.1); Creatinine Clr Calc Pharmacy 130.5 ml/min; Est GFR (African American) 142.5 ml/min; Magnesium 2.1 mg/dl (1.7-2.4); Phosphorus 4.6 mg/dl (2.5-4.9); Potassium 3.9 mmol/L (3.5-5.1)
[2022-05-21] MEDS: [UNRECOGNIZED DRUG - REMARK] SCH (15:46)
[2022-05-21] MEDS: ACETAMINOPHEN 1,000 MG/100 ML VIAL IV PRN (17:18)
--- NOTE | 2022-05-21 20:25 | Billing Data ---
Date of Service May 21, 2022 Coding Level of Care Code 65657 SUB INP/OBS CARE
--- NOTE | 2022-05-21 20:25 | Billing Data ---
Date of Service May 21, 2022 Coding Level of Care Code 73550 Prolonged Care (int'l)
[2022-05-21] MEDS ORDERED: CENTRAL TPN IV SCH (21:00)
[2022-05-21] MEDS ORDERED: [UNRECOGNIZED DRUG - OTHER] IV SCH (21:00)
[2022-05-21] MEDS ORDERED: AMINO ACID 8% IV SCH (21:00)
[2022-05-21] MEDS: ondansetron HCL 8 MG in DEXTROSE 5% 50 ML IV PRN (21:06)
[2022-05-21] MEDS ORDERED: HYDROmorphone INJ 0.5 MG/0.5 ML SYR IV STA (22:53)
[2022-05-21] MEDS: METHOCARBAMOL 750 MG TABLET PO PRN (22:57)
[2022-05-22] MEDS ORDERED: FAT EMUL/SOY/MCT/OLIV/FISH OIL 50 GM/250 ML BAG IV SCH
[2022-05-22] MEDS: CHECK fentaNYL PATCH PLACEMENT SCH ×6 (00:04→18:12)
[2022-05-22] MEDS: HYDROmorphone INJ 0.5 MG/0.5 ML SYR IV PRN ×5 (00:32→20:54)
[2022-05-22] MEDS: oxyCODONE HCL SOLN 5 MG/5 ML UDC PO PRN ×9 (02:44→22:36)
[2022-05-22] MEDS: SODIUM CHLORIDE 0.9% 1000ML 1,000 ML IV SCH ×3 (02:51→21:23)
[2022-05-22] MEDS: DICYCLOMINE HCL 10 MG CAP PO PRN ×3 (06:18→22:37)
[2022-05-22 06:26] LABS: Hematocrit (blood only) 23.5 % (34.1-44.9); Hemoglobin 7.3 g/dl (12.0-16.0); Mean Corpuscular Hemoglobin 27.5 pg (25.0-34.0); Mean Corpuscular Hgb Conc 31.1 g/dL (32.0-36.0); Mean Corpuscular Volume 88.7 fL (80.0-100.0); Mean Platelet Volume 10.9 fL (9.4-12.3); Platelet Count 259 K/uL (130-400); RDW Coefficient of Variation 13.5 % (11.5-14.5); Red Blood Count 2.65 M/uL (3.93-5.22); White Blood Count 5.29 K/ul (4.8-10.8)
[2022-05-22 06:52] LABS: Calcium 7.8 mg/dl (8.5-10.1); Creatinine Clr Calc Pharmacy 130.5 ml/min; Est GFR (African American) 142.5 ml/min
--- NOTE | 2022-05-22 07:06 | Hospitalist Progress Note ---
Date of Service May 22, 2022 Assessment & Plan (1) Seizure-like activity: Plan: 32yo female a complex PMH including gastroparesis, SMA syndrome, ileostomy placement, G-tube placement (on TPN), and adrenal insufficiency presents after multiple episodes of seizure-like activity at home, as well as with intractable abdominal pain and nausea. Chronic generalized abdominal pain, extensive GI history -Patient with very extensive GI history including gastroparesis and multiple abdominal surgeries -Possible intestinal transplant at [facility] -Lactate elevated on admission, but repeat value (05/05) not elevated -Gentle IVF, electrolyte repletion -Continue bentyl, duloxetine, pepcid, protonix, gabapentin. Continue zofran and ativan staggered for nausea -05/06: CT a/p: mild stranding adjacent to the distal stomach with trace carol gastric and perihepatic fluid, possibly postsurgical though gastritis/peptic ulcer disease is within the differential; no pneumoperitoneum; no intussusception; no bowel obstruction; status post subtotal colectomy with right lower quadrant ileostomy -05/07: CT a/p w/IV and oral contrast via G tube: mild improvement in wall thickening and adjacent fat stranding at the distal stomach -Patient using US CUSTOMS AND BORDER OFFICER approximately 0.5mg q1h US CUSTOMS AND BORDER OFFICER clicks set to 0.5mg dilaudid q1h PRN. added liquid oxycodone 7.5mg q1hr PRN, use as first option to wean to fully PO regime will keep dilaudid 0.5mg q2hr PRN as needed for her pain related seizures. -Consulted pain management for potential alternative treatments =no alternative recommendations at this time. -Triggers for patient's pain mostly isolated to moving G-J tube or ostomy site. May likely be caused by adhesional traction of stoma. Will need to discuss with patient's surgeon at [facility] if willing to see her for this, if not may engage local surgeon for opinion on the matter. However will treat potential soft tissue stoma infection first. -Increased her fentanyl patch from 50 mg to 75mcg on 05/19/22 with the hope of tapering her off of US CUSTOMS AND BORDER OFFICER pump. Continue to monitor - Patient may benefit using regularly scheduled oral liquid oxycodone q2-3hr for pain control Stoma infection: -05/11 w/ bleeding at stoma and development of some swelling around stoma. -05/12 development of erythema and discharge at stoma. -Had pseudomonas bacteremia in September of 2019. -Was treated with Keflex, then Doxycycline, then Cefdinir with some improvement -Discharge not much changed, still with episodes of moderate discharge. -Wound culture growing gram negative bacilli. Iron deficient anemia, chronic -Ferritin at 3.5 today indicating severe iron deficient anemia -Discussed modalities of iron supplementation and at this time most likely would be Rylee followed by iron dextran -She would like to discuss this with her front line leader, yet to hear back -Hemoglobin at 7.8 today, consider transfusion if below 7 with symptoms -Continue to monitor with daily CBC. Seizure-like activity -Patient with multiple episodes of seizure-like activity which seem to be triggered by severe pain -Patient was diagnosed with PNES recently at [facility]; however, suspect symptoms moreso represent vagal activity precipitated by pain -Optimize pain control (as above) -Continue seizure and fall precautions -Recommend following up with PNES clinic at [facility] - Given that her seizure-like activity resolves with and without narcotic usage, may be reasonable to consider non-narcotic options to manage her seizure like symptoms Severe protein-calorie malnutrition -Secondary to extensive GI pathology -05/06: restarting TPN -Plan to slowly introduce tube feeds pending clinical improvement Adrenal insufficiency -Chronic; hemodynamically stable -Continue hydrocortisone, fludrocortisone Covid - Resolved -Patient tested positive on 04/18/2022 (at [facility]), repeat PCR on admission still positive -Records from [facility] sent over. Isolation precautions removed. FEN: NPO other than crackers/sips, TPN per pharmacy, LR @ 80mL/hr + KCl 20Meq Code status: full code DVT ppx: SCDs Dispo: PCU. Dispo for home will depend upon adequate pain control as this is most likely the source of her seizure-like activity and syncopal episodes. (2) Syncope: (3) Abdominal pain, chronic, generalized: (4) Adrenal insufficiency: (5) Chronic malnutrition: (6) Gastroparesis: (7) Gastrostomy tube in place: (8) Intestinal motility disorder: (9) Nausea and vomiting: (10) On total parenteral nutrition (TPN): (11) Severe protein-calorie malnutrition: (12) Iron deficiency anemia: Admission and Anticipated Discharge Date Admission Date: May 05, 2022 Supervising Physician Co-Signing Physician Notes I personally examined the patient and verified all solorzano points of history and exam, discussed case, and agree with decision making with Dr Velazquez. [facility] she notes they're willing to revise ostomy but just needs to discuss case w dr muñoz. pt had nutrition visit - doc will assume TPN. Vitals noted, in general she is very fatigued somewhat pale. HEENT normocephalic atraumatic mucous membranes moist. Breathing unlabored no accessory muscle use good effort. Skin shows no rashes no pallor or icterus. Neuro without focal deficits. Abdominal pain: Chronic generalized abdominal pain in the setting of multiple abdominal surgeries, complex GI history. Continue to titrate pain management with IV narcotics, transdermal/p.o. narcoticsworking towards a potentially viable outpatient plan. seems to have done better w escalated PO oxycodone. Given the severity of her pain, it does not necessarily seem realistic at the current time to have her off of narcotics. I have been trying to get in contact with [facility] about considering an ostomy revision given how much her pain seems to be related to her ostomy, bag changes, etc.as well as the anatomic appearance of the ostomy itself. Chronic malnutrition: TPN - [facility] to assume responsibility after dc. eventual goal to titrate up tube feeds but right now not tolerating enough Seizure-like activity: Recent diagnosis of PNES by [facility] provider. Continue to monitor with supportive care. Is having prolonged EEG in future by [facility] provider. Episodes really seem to be provoked by painduring previous hospital stay they largely appear to be an amplified vagal response, now seem to largely be an amplified vagal trigger but then a PNES phenotype once the episode has started. Again appears to be predominantly/entirely pain driven, including episode witnessed today GJ site cellulitis: resolved Adrenal insufficiency: Continue hydrocortisone, fludrocortisone. No stress dosing at this time. Covid 19- diagnosed 04/18/22, continue isolation precautions per hospital protocol, however, symptoms have resolved. Anemia: chronic problem not at goal. Iron levels low here, has had iron infusions in the past however has Hx intolerance to multiple iron formulas in the past so will await her communication with her Wardrobe Technician before trial of Rylee/iron dextrose. Transfusion if Hgb <7. Continue B12 shots Dispo: pending clinical improvement. may end up transferred to [place] for ostomy revision; simultaneously working on pain plan for home Subjective Patient seen at bedside, calm comfortable cooperative. States she is trying to use the oral oxycodone more than the push. States last night when better than usual. Had to change her colostomy bag, states stoma still inflamed poking outwards with opening to colon gradually sinking back into abdomen. Otherwise no SOB. Patient understands we are still working on an appropriate pain regime. Per mom had some pain seizures last night that were well controlled. Dr. Layne had discussion with patient's mom last night to consider what might happen if there is no 'cure' or 'fix' for patient's condition. Will try to contact [facility] doctor [facility] site. Per nursing patient recieved 2mg dilaudid via [employer] C[employer] AND BORDER OFFICER overnight, used oxycodone about every 2-3hr,with additional dilaudid total 1.5mg Review of Systems Review of Systems: All systems reviewed & are unremarkable except as noted in HPI & below Physical Exam Constitutional: + thin and cooperative Eyes: PERRL, conjunctivae normal, anicteric sclerae ENMT: external ear and nose normal, oropharynx normal Neck: trachea midline, no thyromegaly Respiratory: normal respiratory effort, lungs clear to auscultation Cardiovascular: RRR, no murmur, no edema Chest (Breasts): Chest: normal inspection of chest Gastrointestinal (Abdomen): Inspection/Auscultation: + abdominal surgical scar (with colostomy bag); abdomen not distended Percussion/Palpation: + abdomen tender (around ostomy site) and + guarding Skin: no rashes, warm and dry Results & Data Results & Data ([facility]) Vital Signs (Past 12 Hours) Vital Signs Temp Pulse Pulse Resp BP BP Pulse Ox 05/22/22 06:59 37.0 C 114 H 20 108/65 97 05/22/22 04:28 36.9 C 101 H 20 105/71 97 05/21/22 22:09 107 H 05/21/22 23:09 36.8 C 109 H 18 109/74 98 05/21/22 19:57 36.8 C 93 H 20 116/72 96 O2 Del Method 05/22/22 06:59 Room Air 05/22/22 04:28 Room Air 05/21/22 22:09 05/21/22 23:09 Room Air 05/21/22 19:57 Room Air Resident Activity Tracking Resident Involvement: Resident Care Provided Care Provided: Adult Hospital Medicine
[2022-05-22] MEDS: LORazepam 1 mg IV INJ IV PRN ×2 (09:32→22:34)
[2022-05-22] MEDS: HYDROCORTISONE 10 MG TAB PO SCH ×2 (09:37→13:04)
[2022-05-22] MEDS: GABAPENTIN 250 MG/5 ML 470 ML BTL PO SCH ×3 (09:37→21:16)
[2022-05-22] MEDS: FLUDROCORTISONE ACETATE 0.1 MG TAB PO SCH ×2 (09:37→21:17)
[2022-05-22] MEDS: DULoxetine HCL 60 MG CAP PO SCH (09:37)
[2022-05-22] MEDS: PANTOprazole 40 MG TAB PO SCH (09:37)
[2022-05-22] MEDS: FAMOTIDINE 20 MG TAB PO SCH ×2 (09:37→21:17)
[2022-05-22] MEDS: METHOCARBAMOL 750 MG TABLET PO PRN ×2 (09:37→22:37)
[2022-05-22] MEDS: CEFDINIR 300 MG CAP PO SCH ×2 (09:38→21:17)
[2022-05-22] MEDS: [UNRECOGNIZED DRUG - REMARK] SCH (09:39)
[2022-05-22] MEDS: fentaNYL 25 MCG/HR TDSY TD SCH (09:47)
[2022-05-22] MEDS: ondansetron HCL 8 MG in DEXTROSE 5% 50 ML IV PRN ×2 (12:34→21:17)
[2022-05-22] MEDS: [UNRECOGNIZED DRUG - REMARK] SCH (15:17)
--- NOTE | 2022-05-22 17:57 | Billing Data ---
Date of Service May 22, 2022 Coding Level of Care Code 09092 SUB INP/OBS CARE MIN
[2022-05-22] MEDS ORDERED: [UNRECOGNIZED DRUG - OTHER] IV SCH (21:00)
[2022-05-22] MEDS ORDERED: CENTRAL TPN IV SCH (21:00)
[2022-05-22] MEDS ORDERED: AMINO ACID 8% IV SCH (21:00)
[2022-05-22] MEDS ORDERED: ACETAMINOPHEN 325 MG TAB PO PRN (21:32)
[2022-05-22] MEDS: MELATONIN 3 MG TAB PO PRN (22:37)
[2022-05-23] MEDS ORDERED: FAT EMUL/SOY/MCT/OLIV/FISH OIL 50 GM/250 ML BAG IV SCH
[2022-05-23] MEDS: oxyCODONE HCL SOLN 5 MG/5 ML UDC PO PRN ×4 (00:56→08:45)
[2022-05-23] MEDS: CHECK fentaNYL PATCH PLACEMENT SCH ×6 (00:57→15:31)
[2022-05-23] MEDS: HYDROmorphone INJ 0.5 MG/0.5 ML SYR IV PRN ×5 (01:55→23:28)
[2022-05-23] MEDS: DICYCLOMINE HCL 10 MG CAP PO PRN ×3 (05:52→23:31)
[2022-05-23] MEDS: LORazepam 1 mg IV INJ IV PRN ×2 (05:58→20:23)
--- NOTE | 2022-05-23 07:11 | Hospitalist Progress Note ---
Date of Service May 23, 2022 Assessment & Plan (1) Seizure-like activity: Plan: 32yo female a complex PMH including gastroparesis, SMA syndrome, ileostomy placement, G-tube placement (on TPN), and adrenal insufficiency presents after multiple episodes of seizure-like activity at home, as well as with intractable abdominal pain and nausea. Chronic generalized abdominal pain, extensive GI history -Patient with very extensive GI history including gastroparesis and multiple abdominal surgeries -Possible intestinal transplant at [facility] -Lactate elevated on admission, but repeat value (05/05) not elevated -Gentle IVF, electrolyte repletion -Continue bentyl, duloxetine, pepcid, protonix, gabapentin. Continue zofran and ativan staggered for nausea -05/06: CT a/p: mild stranding adjacent to the distal stomach with trace carol gastric and perihepatic fluid, possibly postsurgical though gastritis/peptic ulcer disease is within the differential; no pneumoperitoneum; no intussusception; no bowel obstruction; status post subtotal colectomy with right lower quadrant ileostomy -05/07: CT a/p w/IV and oral contrast via G tube: mild improvement in wall thickening and adjacent fat stranding at the distal stomach -Pain regime JUDICIAL ASSISTANT clicks set to 0.5mg dilaudid q90min PRN. added liquid oxycodone 15mg q2h scheduled will keep dilaudid 0.5mg q2hr PRN as needed for her pain related seizures. -Consulted pain management for potential alternative treatments =no alternative recommendations at this time. -Triggers for patient's pain mostly isolated to moving G-J tube or ostomy site. May likely be caused by adhesional traction of stoma. Will need to discuss with patient's surgeon at [facility] if willing to see her for this, if not may engage local surgeon for opinion on the matter. However will treat potential soft tissue stoma infection first. -Increased her fentanyl patch from 50 mg to 75mcg on 05/19/22 with the hope of tapering her off of JUDICIAL ASSISTANT pump. Continue to monitor Stoma infection: -05/11 w/ bleeding at stoma and development of some swelling around stoma. -05/12 development of erythema and discharge at stoma. -Had pseudomonas bacteremia in September of 2019. -Was treated with Keflex, then Doxycycline, then Cefdinir with some improvement -Discharge not much changed, still with episodes of moderate discharge. -Wound culture growing gram negative bacilli. Iron deficient anemia, chronic -Ferritin at 3.5 today indicating severe iron deficient anemia -Discussed modalities of iron supplementation and at this time most likely would be Rylee followed by iron dextran -She would like to discuss this with her printing machine mechanic, yet to hear back -Hemoglobin at 7.8 today, consider transfusion if below 7 with symptoms -Continue to monitor with daily CBC. Seizure-like activity -Patient with multiple episodes of seizure-like activity which seem to be triggered by severe pain -Patient was diagnosed with PNES recently at [facility]; however, suspect symptoms moreso represent vagal activity precipitated by pain -Optimize pain control (as above) -Continue seizure and fall precautions -Recommend following up with PNES clinic at [facility] - Given that her seizure-like activity resolves with and without narcotic usage, may be reasonable to consider non-narcotic options to manage her seizure like symptoms Severe protein-calorie malnutrition -Secondary to extensive GI pathology -05/06: restarting TPN -Plan to slowly introduce tube feeds pending clinical improvement Adrenal insufficiency -Chronic; hemodynamically stable -Continue hydrocortisone, fludrocortisone Covid - Resolved -Patient tested positive on 04/18/2022 (at [facility]), repeat PCR on admission still positive -Records from [facility] sent over. Isolation precautions removed. FEN: NPO other than crackers/sips, TPN per pharmacy, LR @ 80mL/hr + KCl 20Meq Code status: full code DVT ppx: SCDs Dispo: PCU. Dispo for home will depend upon adequate pain control as this is most likely the source of her seizure-like activity and syncopal episodes. (2) Syncope: (3) Abdominal pain, chronic, generalized: (4) Adrenal insufficiency: (5) Chronic malnutrition: (6) Gastroparesis: (7) Gastrostomy tube in place: (8) Intestinal motility disorder: (9) Nausea and vomiting: (10) On total parenteral nutrition (TPN): (11) Severe protein-calorie malnutrition: (12) Iron deficiency anemia: Admission and Anticipated Discharge Date Admission Date: May 05, 2022 Supervising Physician Co-Signing Physician Notes I personally examined the patient and verified all solorzano points of history and exam, discussed case, and agree with decision making with Dr Velazquez. Still waiting to hear back from [facility] again. Otherwise patient doing okay. Pain under reasonable control. Vitals noted, in general she is very fatigued somewhat pale. HEENT normocephalic atraumatic mucous membranes moist. Breathing unlabored no accessory muscle use good effort. Skin shows no rashes no pallor or icterus. Neuro without focal deficits. Abdominal pain: Chronic generalized abdominal pain in the setting of multiple abdominal surgeries, complex GI history. Continue to titrate pain management with IV narcotics, transdermal/p.o. narcoticsworking towards a potentially viable outpatient plan. seems to have done better w escalated PO oxycodone. Given the severity of her pain, it does not necessarily seem realistic at the current time to have her off of narcotics. Anticipate ostomy revision will have a pretty significant benefit. Chronic malnutrition: TPN - [facility] to assume responsibility after dc. eventual goal to titrate up tube feeds but right now not tolerating enough Seizure-like activity: Recent diagnosis of PNES by [facility] provider. Continue to monitor with supportive care. Is having prolonged EEG in future by [facility] provider. Episodes really seem to be provoked by painduring previous hospital stay they largely appear to be an amplified vagal response, now seem to largely be an amplified vagal trigger but then a PNES phenotype once the episode has started. Again appears to be predominantly/entirely pain driven, and while I doubt they will totally vanish with better pain control, I suspect they will improve significantly GJ site cellulitis: resolved Adrenal insufficiency: Continue hydrocortisone, fludrocortisone. No stress dosing at this time. Covid 19- diagnosed 04/18/22, continue isolation precautions per hospital protocol, however, symptoms have resolved. Anemia: chronic problem not at goal. Iron levels low here, has had iron infusions in the past however has Hx intolerance to multiple iron formulas in the past and unfortunately her printing machine mechanic gave them no direction given that she was admitted under our service.. Transfusion if Hgb <7. Continue B12 shots Dispo: pending clinical improvement. may end up transferred to [place] for ostomy revision; simultaneously working on pain plan for home Subjective Patient seen at bedside, calm comfortable cooperative. She states [facility] had called back stating they would not advise her hospital course while she is in a different hospital. States otherwise pain was controlled overnight, understands we will try to shift to a scheduled oral pain regime. Patient denies any unusual discharge from her ostomy or G-tube. Otherwise no SOB noted. Discussed with [facility], possibility of having her transferred to [facility] for ostomy revision. Patient used 3mg dialudid via JUDICIAL ASSISTANT, 1.5mg dilaudid via additional IV pain control, and used oxycodone at 2-3hr intervals. Review of Systems Review of Systems: All systems reviewed & are unremarkable except as noted in HPI & below Physical Exam Constitutional: + thin and cooperative Eyes: PERRL, conjunctivae normal, anicteric sclerae ENMT: external ear and nose normal, oropharynx normal Neck: trachea midline, no thyromegaly Respiratory: normal respiratory effort, lungs clear to auscultation Cardiovascular: RRR, no murmur, no edema Chest (Breasts): Chest: normal inspection of chest Gastrointestinal (Abdomen): Inspection/Auscultation: + abdominal surgical scar (with colostomy bag); abdomen not distended Percussion/Palpation: + abdomen tender (around ostomy site) and + guarding Skin: no rashes, warm and dry Results & Data Results & Data ([facility]) Vital Signs (Past 12 Hours) Vital Signs Temp Pulse Pulse Resp BP Pulse Ox O2 Del Method 05/23/22 07:10 36.8 C 98 H 20 111/67 96 Nasal Cannula 05/23/22 00:00 107 H 05/23/22 02:57 36.7 C 104 H 20 110/77 96 Nasal Cannula 05/22/22 22:56 36.8 C 117 H 20 100/65 95 Room Air Resident Activity Tracking Resident Involvement: Resident Care Provided Care Provided: Adult [facility] Medicine
[2022-05-23] MEDS ORDERED: LIPID EMULSION 20% IV ONE (07:14)
[2022-05-23 07:15] LABS: Hematocrit (blood only) 22.8 % (34.1-44.9); Hemoglobin 7.2 g/dl (12.0-16.0); Mean Corpuscular Hemoglobin 28.2 pg (25.0-34.0); Mean Corpuscular Hgb Conc 31.6 g/dL (32.0-36.0); Mean Corpuscular Volume 89.4 fL (80.0-100.0); Mean Platelet Volume 10.9 fL (9.4-12.3); Platelet Count 264 K/uL (130-400); RDW Coefficient of Variation 13.4 % (11.5-14.5); RDW Standard Deviation 44.2 fL (36.4-46.3); Red Blood Count 2.55 M/uL (3.93-5.22); White Blood Count 6.48 K/ul (4.8-10.8)
[2022-05-23 07:50] LABS: BUN Creatinine Ratio 22.2 (10-20); Calcium 7.9 mg/dl (8.5-10.1); Creatinine Clr Calc Pharmacy 122.2 ml/min; Est GFR (African American) 139.5 ml/min; Est GFR (Non-African American) 120.4 ml/min; Phosphorus 4.2 mg/dl (2.5-4.9); Potassium 3.9 mmol/L (3.5-5.1)
[2022-05-23] MEDS: [UNRECOGNIZED DRUG - REMARK] SCH (08:29)
[2022-05-23] MEDS: HYDROCORTISONE 10 MG TAB PO SCH ×2 (08:30→14:12)
[2022-05-23] MEDS: FAMOTIDINE 20 MG TAB PO SCH ×2 (08:30→20:27)
[2022-05-23] MEDS: DULoxetine HCL 60 MG CAP PO SCH (08:30)
[2022-05-23] MEDS: PANTOprazole 40 MG TAB PO SCH (08:30)
[2022-05-23] MEDS: POLYETHYLENE (MIRALAX) 17 GM PACK PO SCH (08:31)
[2022-05-23] MEDS: CEFDINIR 300 MG CAP PO SCH (08:31)
[2022-05-23] MEDS: FLUDROCORTISONE ACETATE 0.1 MG TAB PO SCH ×2 (08:31→20:27)
[2022-05-23] MEDS: METHOCARBAMOL 750 MG TABLET PO PRN ×2 (08:33→23:34)
[2022-05-23] MEDS: GABAPENTIN 250 MG/5 ML 470 ML BTL PO SCH ×3 (08:38→20:32)
[2022-05-23] MEDS: HYDROmorphone PCA 30 MG/30 ML IV PRN (10:54)
[2022-05-23] MEDS: oxyCODONE HCL SOLN 5 MG/5 ML UDC PO SCH ×7 (11:11→23:28)
[2022-05-23] MEDS: HYOSCYAMINE SULFATE 0.125 MG TAB SL PRN (12:51)
[2022-05-23] MEDS: [UNRECOGNIZED DRUG - REMARK] SCH (15:30)
--- NOTE | 2022-05-23 16:09 | Billing Data ---
Date of Service May 23, 2022 Coding Level of Care Code 82442 SUB INP/OBS CARE MIN
--- NOTE | 2022-05-23 16:09 | Billing Data ---
Date of Service May 23, 2022 Coding Level of Care Code 85167 SUB INP/OBS CARE MIN
[2022-05-23] MEDS ORDERED: [UNRECOGNIZED DRUG - OTHER] IV SCH (21:00)
[2022-05-23] MEDS ORDERED: AMINO ACID 8% IV SCH (21:00)
[2022-05-23] MEDS ORDERED: CENTRAL TPN IV SCH (21:00)
[2022-05-23] MEDS: MELATONIN 3 MG TAB PO PRN (23:29)
[2022-05-23] MEDS: ondansetron HCL 8 MG in DEXTROSE 5% 50 ML IV PRN (23:36)
[2022-05-24] MEDS ORDERED: FAT EMUL/SOY/MCT/OLIV/FISH OIL 50 GM/250 ML BAG IV SCH
[2022-05-24] MEDS: CHECK fentaNYL PATCH PLACEMENT SCH ×6 (00:04→16:24)
[2022-05-24] MEDS: oxyCODONE HCL SOLN 5 MG/5 ML UDC PO SCH ×12 (01:24→23:22)
[2022-05-24] MEDS: HYDROmorphone INJ 0.5 MG/0.5 ML SYR IV PRN ×5 (02:26→22:40)
[2022-05-24] MEDS: LORazepam 1 mg IV INJ IV PRN ×3 (05:33→23:00)
[2022-05-24] MEDS: DICYCLOMINE HCL 10 MG CAP PO PRN ×3 (05:33→22:56)
[2022-05-24 06:45] LABS: Hematocrit (blood only) 23.4 % (34.1-44.9); Hemoglobin 7.4 g/dl (12.0-16.0); Mean Corpuscular Hemoglobin 27.4 pg (25.0-34.0); Mean Corpuscular Hgb Conc 31.6 g/dL (32.0-36.0); Mean Corpuscular Volume 86.7 fL (80.0-100.0); Mean Platelet Volume 10.8 fL (9.4-12.3); Platelet Count 263 K/uL (130-400); RDW Coefficient of Variation 13.7 % (11.5-14.5)
[2022-05-24 07:28] LABS: BUN Creatinine Ratio 12.7 (10-20); Calcium 8.1 mg/dl (8.5-10.1); Creatinine Clr Calc Pharmacy 106.2 ml/min; Est GFR (African American) 132.5 ml/min; Est GFR (Non-African American) 114.3 ml/min; Magnesium 1.9 mg/dl (1.7-2.4); Potassium 3.1 mmol/L (3.5-5.1)
[2022-05-24] MEDS: [UNRECOGNIZED DRUG - REMARK] SCH (07:44)
[2022-05-24] MEDS: GABAPENTIN 250 MG/5 ML 470 ML BTL PO SCH ×3 (08:14→20:38)
[2022-05-24] MEDS: HYDROCORTISONE 10 MG TAB PO SCH ×2 (08:15→14:09)
[2022-05-24] MEDS: DULoxetine HCL 60 MG CAP PO SCH (08:15)
[2022-05-24] MEDS: POLYETHYLENE (MIRALAX) 17 GM PACK PO SCH (08:15)
[2022-05-24] MEDS: FAMOTIDINE 20 MG TAB PO SCH ×2 (08:16→20:36)
[2022-05-24] MEDS: PANTOprazole 40 MG TAB PO SCH (08:16)
[2022-05-24] MEDS: FLUDROCORTISONE ACETATE 0.1 MG TAB PO SCH ×2 (08:17→20:36)
[2022-05-24] MEDS: METHOCARBAMOL 750 MG TABLET PO PRN ×2 (08:18→22:56)
--- NOTE | 2022-05-24 08:18 | Hospitalist Progress Note ---
Date of Service May 24, 2022 Assessment & Plan (1) Seizure-like activity: Plan: 32yo female a complex PMH including gastroparesis, SMA syndrome, ileostomy placement, G-tube placement (on TPN), and adrenal insufficiency presents after multiple episodes of seizure-like activity at home, as well as with intractable abdominal pain and nausea. Chronic generalized abdominal pain, extensive GI history -Patient with very extensive GI history including gastroparesis and multiple abdominal surgeries -Possible intestinal transplant at [facility] -Lactate elevated on admission, but repeat value (05/05) not elevated -Gentle IVF, electrolyte repletion -Continue bentyl, duloxetine, pepcid, protonix, gabapentin. Continue zofran and ativan staggered for nausea -05/06: CT a/p: mild stranding adjacent to the distal stomach with trace carol gastric and perihepatic fluid, possibly postsurgical though gastritis/peptic ulcer disease is within the differential; no pneumoperitoneum; no intussusception; no bowel obstruction; status post subtotal colectomy with right lower quadrant ileostomy -05/07: CT a/p w/IV and oral contrast via G tube: mild improvement in wall thickening and adjacent fat stranding at the distal stomach -Pain regime PASSENGER VESSEL CHEF clicks set to 0.5mg dilaudid q90min PRN. added liquid oxycodone 15mg q2h scheduled - may need to switch briefly to tab form due to hospital shortage will keep dilaudid 0.5mg q2hr PRN as needed for her pain related seizures. -Consulted pain management for potential alternative treatments =no alternative recommendations at this time. -Triggers for patient's pain mostly isolated to moving G-J tube or ostomy site. May likely be caused by adhesional traction of stoma. Will need to discuss with patient's surgeon at [facility] if willing to see her for this, if not may engage local surgeon for opinion on the matter. However will treat potential soft tissue stoma infection first. -Increased her fentanyl patch from 50 mg to 75mcg on 05/19/22 with the hope of tapering her off of PASSENGER VESSEL CHEF pump. Continue to monitor TPN Catheter Occlusion -occurred 05/23 evening, likely lipid occlusion -TPN and lipid emulsion on hold -working with nutrition and pharmacy to determine how to remove blockage -if needed will consult vascular Stoma infection: -05/11 w/ bleeding at stoma and development of some swelling around stoma. -05/12 development of erythema and discharge at stoma. -Had pseudomonas bacteremia in September of 2019. -Was treated with Keflex, then Doxycycline, then Cefdinir with some improvement -Discharge not much changed, still with episodes of moderate discharge. -Wound culture growing gram negative bacilli. Iron deficient anemia, chronic -Ferritin at 3.5 today indicating severe iron deficient anemia -Discussed modalities of iron supplementation and at this time most likely would be Rylee followed by iron dextran -She would like to discuss this with her medical videographer, yet to hear back -Hemoglobin at 7.8 today, consider transfusion if below 7 with symptoms -Continue to monitor with daily CBC. Seizure-like activity -Patient with multiple episodes of seizure-like activity which seem to be triggered by severe pain -Patient was diagnosed with PNES recently at [facility]; however, suspect symptoms moreso represent vagal activity precipitated by pain -Optimize pain control (as above) -Continue seizure and fall precautions -Recommend following up with PNES clinic at [facility] - Given that her seizure-like activity resolves with and without narcotic usage, may be reasonable to consider non-narcotic options to manage her seizure like symptoms Severe protein-calorie malnutrition -Secondary to extensive GI pathology -05/06: restarting TPN -Plan to slowly introduce tube feeds pending clinical improvement Adrenal insufficiency -Chronic; hemodynamically stable -Continue hydrocortisone, fludrocortisone Covid - Resolved -Patient tested positive on 04/18/2022 (at [facility]), repeat PCR on admission still positive -Records from [facility] sent over. Isolation precautions removed. FEN: NPO other than crackers/sips, TPN per pharmacy, LR @ 80mL/hr + KCl 20Meq Code status: full code DVT ppx: SCDs Dispo: PCU. Dispo for home will depend upon adequate pain control as this is most likely the source of her seizure-like activity and syncopal episodes. (2) Syncope: (3) Abdominal pain, chronic, generalized: (4) Adrenal insufficiency: (5) Chronic malnutrition: (6) Gastroparesis: (7) Gastrostomy tube in place: (8) Intestinal motility disorder: (9) Nausea and vomiting: (10) On total parenteral nutrition (TPN): (11) Severe protein-calorie malnutrition: (12) Iron deficiency anemia: Admission and Anticipated Discharge Date Admission Date: May 05, 2022 Supervising Physician Co-Signing Physician Notes I personally examined the patient and verified all solorzano points of history and exam, discussed case, and agree with decision making with Dr Velazquez. Pain still present, but having a more tolerable day. Nursing notes that she has been able to tolerate popsicles pretty well. Patient notes that she has not had a lot of ostomy output, and feels things may be a bit blocked. Discussed with [facility] transfer center, accepting hospitalist, and transplant surgeon Vitals noted, in general she is very fatigued somewhat pale. HEENT normocephalic atraumatic mucous membranes moist. Breathing unlabored no accessory muscle use good effort. Skin shows no rashes no pallor or icterus. Neuro without focal deficits. Abdomen soft mild diffuse tenderness no guarding rebound or rigidity. Abdominal pain: Chronic generalized abdominal pain in the setting of multiple abdominal surgeries, complex GI history. Continue to titrate pain management with IV narcotics, transdermal/p.o. narcoticsworking towards a potentially viable outpatient plan. seems to have done better w escalated PO oxycodone. Given the severity of her pain, it does not necessarily seem realistic at the current time to have her off of narcotics. Anticipate ostomy revision will have a pretty significant benefit. Discussed this with tertiary care. Chronic malnutrition: TPN - [facility] (dr morley) to assume responsibility [facility]. eventual goal to titrate up tube feeds but right now not tolerating enough for now TPN on hold while port is clogged. Seizure-like activity: Recent diagnosis of PNES by [facility] provider. Continue to monitor with supportive care. Is having prolonged EEG in future by [facility] provider. Episodes really seem to be provoked by painduring previous hospital stay they largely appear to be an amplified vagal response, now seem to largely be an amplified vagal trigger but then a PNES phenotype once the episode has started. Again appears to be predominantly/entirely pain driv en, and while I doubt they will totally vanish with better pain control, I suspect they will improve significantly GJ site cellulitis: resolved Adrenal insufficiency: Continue hydrocortisone, fludrocortisone. No stress dosing at this time. Covid 19- diagnosed 04/18/22, continue isolation precautions per hospital protocol, however, symptoms have resolved. Anemia: chronic problem not at goal. Iron levels low here, has had iron infusions in the past however has Hx intolerance to multiple iron formulas in the past and unfortunately her medical videographer gave them no direction given that she was admitted under our service.. Transfusion if Hgb <7. Continue B12 shots Dispo: Transfer to [place] for evaluation of ostomy Total time greater than 30 minutes between 2 visits [id number], discussing the situation with patient/mother discussing with [facility] transfer center, transplant surgeon, and accepting hospitalist. Subjective Patient seen at bedside, calm comfortable cooperative. Patient states overnight her TPN catheter became occluded after she received TPN, nursing was unable to flush. Otherwise slept well, pain controlled. Per overnight team, patient's TPN catheter developed a lipid clot while she was recieving fat emulsion. There was a suggestion to clear it with 70% ethanol, however that is not a product available in the hospital. Review of Systems Review of Systems: All systems reviewed & are unremarkable except as noted in HPI & below Physical Exam Constitutional: + thin and cooperative Eyes: PERRL, conjunctivae normal, anicteric sclerae ENMT: external ear and nose normal, oropharynx normal Neck: trachea midline, no thyromegaly Respiratory: normal respiratory effort, lungs clear to auscultation Cardiovascular: RRR, no murmur, no edema Chest (Breasts): Chest: normal inspection of chest Gastrointestinal (Abdomen): Inspection/Auscultation: + abdominal surgical scar (with colostomy bag); abdomen not distended Percussion/Palpation: + abdomen tender (around ostomy site) and + guarding Skin: no rashes, warm and dry Results & Data Results & Data ([facility]) Vital Signs (Past 12 Hours) Vital Signs Temp Pulse Pulse Resp BP BP Pulse Ox 05/24/22 07:48 109 H 20 104/70 94 05/24/22 07:21 89 05/23/22 21:56 115 H 05/24/22 02:12 118 H 18 119/75 97 05/23/22 23:17 105 H 18 106/69 98 05/23/22 22:53 36.7 C 118 H 20 106/75 97 O2 Del Method 05/24/22 07:48 Room Air 05/24/22 07:21 05/23/22 21:56 05/24/22 02:12 Room Air 05/23/22 23:17 Room Air 05/23/22 22:53 Room Air Resident Activity Tracking Resident Involvement: Resident Care Provided Care Provided: Adult Hospital Medicine
[2022-05-24] MEDS: fentaNYL 25 MCG/HR TDSY TD SCH (08:24)
[2022-05-24] MEDS: fentaNYL 50 MCG/HR TDSY TD SCH (08:24)
[2022-05-24] MEDS: [UNRECOGNIZED DRUG - REMARK] SCH (14:06)
[2022-05-24] MEDS: SODIUM CHLORIDE 0.9% 1000ML 1,000 ML IV SCH (14:09)
[2022-05-24] MEDS: ondansetron HCL 8 MG in DEXTROSE 5% 50 ML IV PRN (17:38)
--- NOTE | 2022-05-24 18:40 | Billing Data ---
Date of Service May 24, 2022 Coding Level of Care Code 41230 SUB INP/OBS CARE MIN
--- NOTE | 2022-05-24 18:41 | Billing Data ---
Date of Service May 24, 2022 Coding Level of Care Code 76924 Prolonged Care (int'l)
[2022-05-24] MEDS: MELATONIN 3 MG TAB PO PRN (22:57)
[2022-05-25] MEDS: HYDROmorphone INJ 0.5 MG/0.5 ML SYR IV PRN ×6 (01:17→22:31)
[2022-05-25] MEDS: oxyCODONE HCL SOLN 5 MG/5 ML UDC PO SCH ×12 (01:24→23:43)
[2022-05-25] MEDS: ondansetron HCL 8 MG in DEXTROSE 5% 50 ML IV PRN ×2 (03:40→20:55)
[2022-05-25] MEDS: LORazepam 1 mg IV INJ IV PRN ×3 (05:16→22:31)
[2022-05-25] MEDS: DICYCLOMINE HCL 10 MG CAP PO PRN ×3 (05:17→22:31)
[2022-05-25] MEDS: GABAPENTIN 250 MG/5 ML 470 ML BTL PO SCH ×3 (07:48→21:21)
[2022-05-25] MEDS: [UNRECOGNIZED DRUG - REMARK] SCH (07:48)
[2022-05-25] MEDS: POLYETHYLENE (MIRALAX) 17 GM PACK PO SCH (07:49)
[2022-05-25] MEDS: CHECK fentaNYL PATCH PLACEMENT SCH ×6 (07:49→15:30)
[2022-05-25] MEDS: FAMOTIDINE 20 MG TAB PO SCH ×2 (07:49→21:20)
[2022-05-25] MEDS: HYDROCORTISONE 10 MG TAB PO SCH ×2 (07:50→14:36)
[2022-05-25] MEDS: METHOCARBAMOL 750 MG TABLET PO PRN ×2 (07:50→22:31)
[2022-05-25] MEDS: PANTOprazole 40 MG TAB PO SCH (07:50)
[2022-05-25] MEDS: FLUDROCORTISONE ACETATE 0.1 MG TAB PO SCH ×2 (07:50→21:21)
[2022-05-25] MEDS: DULoxetine HCL 60 MG CAP PO SCH (07:51)
[2022-05-25 08:02] LABS: Hematocrit (blood only) 23.5 % (34.1-44.9); Hemoglobin 7.4 g/dl (12.0-16.0); Mean Corpuscular Hemoglobin 27.8 pg (25.0-34.0); Mean Corpuscular Hgb Conc 31.5 g/dL (32.0-36.0); Mean Corpuscular Volume 88.3 fL (80.0-100.0); Platelet Count 287 K/uL (130-400); RDW Coefficient of Variation 13.6 % (11.5-14.5); RDW Standard Deviation 44.1 fL (36.4-46.3); Red Blood Count 2.66 M/uL (3.93-5.22); White Blood Count 5.01 K/ul (4.8-10.8)
--- NOTE | 2022-05-25 08:15 | Hospitalist Progress Note ---
Date of Service May 25, 2022 Assessment & Plan (1) Seizure-like activity: Plan: 32yo female a complex PMH including gastroparesis, SMA syndrome, ileostomy placement, G-tube placement (on TPN), and adrenal insufficiency presents after multiple episodes of seizure-like activity at home, as well as with intractable abdominal pain and nausea. Chronic generalized abdominal pain, extensive GI history -Patient with very extensive GI history including gastroparesis and multiple abdominal surgeries -Possible intestinal transplant at [facility] -Lactate elevated on admission, but repeat value (05/05) not elevated -Gentle IVF, electrolyte repletion -Continue bentyl, duloxetine, pepcid, protonix, gabapentin. Continue zofran and ativan staggered for nausea -05/06: CT a/p: mild stranding adjacent to the distal stomach with trace carol gastric and perihepatic fluid, possibly postsurgical though gastritis/peptic ulcer disease is within the differential; no pneumoperitoneum; no intussusception; no bowel obstruction; status post subtotal colectomy with right lower quadrant ileostomy -05/07: CT a/p w/IV and oral contrast via G tube: mild improvement in wall thickening and adjacent fat stranding at the distal stomach -Pain regime TRIMMER HELPER clicks originally set to 0.5mg dilaudid q90min PRN. Currently stopped due to limited IV access added liquid oxycodone 15mg q2h scheduled - switched to 20mg oxycodone tablets q2h at this time due to liquid supply issues ordered dilaudid 0.5mg q2hr PRN as needed for her pain related seizures. - currently set at dilaudid 0.5mg q1h PRN for pain given lack of TRIMMER HELPER there is a large concern this will set her back in terms of IV pain medication usage -Consulted pain management for potential alternative treatments =no alternative recommendations at this time. -Triggers for patient's pain mostly isolated to moving G-J tube or ostomy site. May likely be caused by adhesional traction of stoma. Will need to discuss with patient's surgeon at [facility] if willing to see her for this, if not may engage local surgeon for opinion on the matter. However will treat potential soft tissue stoma infection first. -Increased her fentanyl patch from 50 mg to 75mcg on 05/19/22 with the hope of tapering her off of TRIMMER HELPER pump. Continue to monitor concern she does not have enough fat reserved for adequate absorption, concern removing fentanyl patching and replacing with long acting oral -currently hoping for transfer to [place] for stoma revision to reduce pain [place] transfer number [phone] [place] surgeon number [phone] TPN Catheter Occlusion -occurred 05/23 evening, likely lipid occlusion -TPN and lipid emulsion on hold - switched to PPN at this time without lipids -working with nutrition and pharmacy to determine how to remove blockage -will consult surgery tomorrow for port replacement -if she needs additional IV access, will call IV team to place additional central line Stoma infection: -05/11 w/ bleeding at stoma and development of some swelling around stoma. -05/12 development of erythema and discharge at stoma. -Had pseudomonas bacteremia in September of 2019. -Was treated with Keflex, then Doxycycline, then Cefdinir with some improvement -Discharge not much changed, still with episodes of moderate discharge. -Wound culture growing gram negative bacilli. Iron deficient anemia, chronic -Ferritin at 3.5 today indicating severe iron deficient anemia -Discussed modalities of iron supplementation and at this time most likely would be Rylee followed by iron dextran -She would like to discuss this with her eligibility specialist, yet to hear back -Hemoglobin at 7.8 today, consider transfusion if below 7 with symptoms -Continue to monitor with daily CBC. Seizure-like activity -Patient with multiple episodes of seizure-like activity which seem to be triggered by severe pain -Patient was diagnosed with PNES recently at [facility]; however, suspect symptoms moreso represent vagal activity precipitated by pain -Optimize pain control (as above) -Continue seizure and fall precautions -Recommend following up with PNES clinic at [facility] - Given that her seizure-like activity resolves with and without narcotic usage, may be reasonable to consider non-narcotic options to manage her seizure like symptoms Severe protein-calorie malnutrition -Secondary to extensive GI pathology -05/06: restarting TPN -Plan to slowly introduce tube feeds pending clinical improvement Adrenal insufficiency -Chronic; hemodynamically stable -Continue hydrocortisone, fludrocortisone Covid - Resolved -Patient tested positive on 04/18/2022 (at [facility]), repeat PCR on admission still positive -Records from [facility] sent over. Isolation precautions removed. FEN: NPO other than crackers/sips, TPN per pharmacy, LR @ 80mL/hr + KCl 20Meq Code status: full code DVT ppx: SCDs Dispo: PCU. Dispo for home will depend upon adequate pain control as this is most likely the source of her seizure-like activity and syncopal episodes. (2) Syncope: (3) Abdominal pain, chronic, generalized: (4) Adrenal insufficiency: (5) Chronic malnutrition: (6) Gastroparesis: (7) Gastrostomy tube in place: (8) Intestinal motility disorder: (9) Nausea and vomiting: (10) On total parenteral nutrition (TPN): (11) Severe protein-calorie malnutrition: (12) Iron deficiency anemia: Admission and Anticipated Discharge Date Admission Date: May 05, 2022 Supervising Physician Co-Signing Physician Notes I personally examined the patient and verified all solorzano points of history and exam, discussed case, and agree with decision making with Dr Velazquez. still awaiting transfer. no new complaints. asks good questions about transfer that i answer to the best of my ability. Vitals noted, in general she is very fatigued somewhat pale. HEENT normocephalic atraumatic mucous membranes moist. Breathing unlabored no accessory muscle use good effort. Skin shows no rashes no pallor or icterus. Neuro without focal deficits. wearing the [facility] Tshirt Abdominal pain: Chronic generalized abdominal pain in the setting of multiple abdominal surgeries, complex GI history. Continue to titrate pain management with IV narcotics, transdermal/p.o. narcoticsworking towards a potentially viable outpatient plan. seems to have done better overall w escalated PO oxycodone and have been able to slowly decrease IV dilauded. Given the severity of her pain, it does not necessarily seem realistic at the current time to have her off of narcotics at the current time. Anticipate ostomy revision will have a pretty significant benefit. Did discuss with patient that I do not believe this will be "curative" for her painand she does not have any such expectations. Discussed this with tertiary care. Pending transfer Chronic malnutrition: TPN - [facility] (dr omrley) to assume responsibility after dc. eventual goal to titrate up tube feeds but right now not tolerating enough for now TPN on hold while port is clogged. PPN for today Seizure-like activity: Recent diagnosis of PNES by [facility] provider. Continue to monitor with supportive care. Is having prolonged EEG in future by [facility] provider. Episodes really seem to be provoked by painduring previous hospital stay they largely appear to be an amplified vagal response, now seem to largely be an amplified vagal trigger but then a PNES phenotype once the episode has started. Again appears to be predominantly/entirely pain driven, and while I doubt they will totally vanish with better pain control, I suspect they will improve significantly. Having been at her bedside through multiple of these episodes, other than (expected) tachycardia she is entirely stable further duration. GJ site cellulitis: resolved Adrenal insufficiency: Continue hydrocortisone, fludrocortisone. No stress dosing at this time. Covid 19- diagnosed 04/18/22, continue isolation precautions per hospital protocol, however, symptoms have resolved. Anemia: chronic problem not at goal. Iron levels low here, has had iron infusions in the past however has Hx intolerance to multiple iron formulas in the past and unfortunately her eligibility specialist gave them no direction given that she was admitted under our service.. Transfusion if Hgb <7. Continue B12 shots Dispo: Transfer to [place] for evaluation of ostomy Subjective Patient seen at bedside, calm comfortable. Patient states her pain is currently ok, however growing concerned because her TPN is currently on hold and still no solution for fixing her port clog. Patient and mom concerned if they go to [place] it will be an excuse to have the port fully removed. Mom is concerned about her glucose without the TPN. Patient states she has been getting more concerned about her ostomy over the past few days, states it has gotten more swollen and prolapsed, color has darkened to dark red. Patient has a photo of her ostomy, it is still patent exuding stool. She states she feel her abd feels more distended and painful as well. Patient at this time has 1 site of IV access at this time. Review of Systems Review of Systems: All systems reviewed & are unremarkable except as noted in HPI & below Physical Exam Constitutional: + thin and cooperative Eyes: PERRL, conjunctivae normal, anicteric sclerae ENMT: external ear and nose normal, oropharynx normal Neck: trachea midline, no thyromegaly Respiratory: normal respiratory effort, lungs clear to auscultation Cardiovascular: RRR, no murmur, no edema Chest (Breasts): Chest: normal inspection of chest Gastrointestinal (Abdomen): Inspection/Auscultation: + abdominal surgical scar (with colostomy bag); abdomen not distended Percussion/Palpation: + abdomen tender (around ostomy site) and + guarding Skin: no rashes, warm and dry Results & Data Results & Data ([facility]) Vital Signs (Past 12 Hours) Vital Signs Temp Pulse Pulse Resp BP Pulse Ox O2 Del Method 05/25/22 08:08 36.4 C L 98 H 20 107/72 97 Room Air 05/25/22 07:14 86 05/25/22 03:39 36.5 C 117 H 20 100/66 96 Room Air 05/24/22 21:59 116 H 05/24/22 23:56 36.5 C 105 H 20 110/78 98 Room Air Resident Activity Tracking Resident Involvement: Resident Care Provided Care Provided: Adult Hospital Medicine
[2022-05-25 08:29] LABS: BUN Creatinine Ratio 6.8 (10-20); Calcium 8.2 mg/dl (8.5-10.1); Creatinine Clr Calc Pharmacy 103.5 ml/min; Est GFR (Non-African American) 108.7 ml/min; Potassium 3.2 mmol/L (3.5-5.1)
[2022-05-25] MEDS ORDERED: AMINO ACIDS 4.25% IV SCH (16:00)
[2022-05-25] MEDS ORDERED: D5W IV SCH (16:00)
[2022-05-25] MEDS ORDERED: PERIPHERAL TPN IV SCH (16:00)
--- NOTE | 2022-05-25 16:14 | Billing Data ---
Date of Service May 25, 2022 Coding Level of Care Code 86001 SUB INP/OBS CARE MIN
[2022-05-25] MEDS ORDERED: oxyCODONE HCL IR 5 MG TAB (IMMEDIATE RELEASE) PO SCH (22:30)
[2022-05-25] MEDS: MELATONIN 3 MG TAB PO PRN (22:31)
[2022-05-26] MEDS: CHECK fentaNYL PATCH PLACEMENT SCH ×8 (00:09→23:49)
[2022-05-26] MEDS: oxyCODONE HCL SOLN 5 MG/5 ML UDC PO SCH ×12 (01:31→22:35)
[2022-05-26] MEDS: HYDROmorphone INJ 0.5 MG/0.5 ML SYR IV PRN ×8 (02:59→20:39)
[2022-05-26] MEDS: LORazepam 1 mg IV INJ IV PRN ×3 (06:08→19:40)
[2022-05-26] MEDS: DICYCLOMINE HCL 10 MG CAP PO PRN ×3 (06:09→20:43)
[2022-05-26 06:20] LABS: Hematocrit (blood only) 24.3 % (34.1-44.9); Hemoglobin 7.7 g/dl (12.0-16.0); Mean Corpuscular Hemoglobin 27.9 pg (25.0-34.0); Mean Corpuscular Hgb Conc 31.7 g/dL (32.0-36.0); Mean Platelet Volume 10.9 fL (9.4-12.3); Platelet Count 328 K/uL (130-400); RDW Coefficient of Variation 13.6 % (11.5-14.5); RDW Standard Deviation 43.9 fL (36.4-46.3); Red Blood Count 2.76 M/uL (3.93-5.22); White Blood Count 6.18 K/ul (4.8-10.8)
[2022-05-26 06:48] LABS: BUN Creatinine Ratio 8.8 (10-20); Calcium 8.4 mg/dl (8.5-10.1); Creatinine Clr Calc Pharmacy 110.8 ml/min; Est GFR (Non-African American) 117.4 ml/min; Phosphorus 4.6 mg/dl (2.5-4.9); Potassium 3.2 mmol/L (3.5-5.1)
--- NOTE | 2022-05-26 07:08 | Hospitalist Progress Note ---
Date of Service May 26, 2022 Assessment & Plan (1) Seizure-like activity: Plan: 32yo female a complex PMH including gastroparesis, SMA syndrome, ileostomy placement, G-tube placement (on TPN), and adrenal insufficiency presents after multiple episodes of seizure-like activity at home, as well as with intractable abdominal pain and nausea. Chronic generalized abdominal pain, extensive GI history -Patient with very extensive GI history including gastroparesis and multiple abdominal surgeries -Possible intestinal transplant at [facility] -Lactate elevated on admission, but repeat value (05/05) not elevated -Gentle IVF, electrolyte repletion -Continue bentyl, duloxetine, pepcid, protonix, gabapentin. Continue zofran and ativan staggered for nausea -05/06: CT a/p: mild stranding adjacent to the distal stomach with trace carol gastric and perihepatic fluid, possibly postsurgical though gastritis/peptic ulcer disease is within the differential; no pneumoperitoneum; no intussusception; no bowel obstruction; status post subtotal colectomy with right lower quadrant ileostomy -05/07: CT a/p w/IV and oral contrast via G tube: mild improvement in wall thickening and adjacent fat stranding at the distal stomach -Pain regime stopped HIGH DENSITY PRESS OPERATOR added liquid oxycodone 15mg q2h scheduled - switched to 20mg oxycodone tablets q2h at this time due to liquid supply issues ordered dilaudid 0.5mg q1h PRN for pain, being used at q2h there is a large concern this will set her back in terms of IV pain medication usage -Consulted pain management for potential alternative treatments =no alternative recommendations at this time. -Triggers for patient's pain mostly isolated to moving G-J tube or ostomy site. May likely be caused by adhesional traction of stoma. Will need to discuss with patient's surgeon at [facility] if willing to see her for this, if not may engage local surgeon for opinion on the matter. However will treat potential soft tissue stoma infection first. -Increased her fentanyl patch from 50 mg to 75mcg on 05/19/22 with the hope of tapering her off of HIGH DENSITY PRESS OPERATOR pump. Continue to monitor concern she does not have enough fat reserved for adequate absorption, concern removing fentanyl patching and replacing with long acting oral -currently hoping for transfer to [place] for stoma revision to reduce pain [place] transfer number [phone] [place] surgeon number [phone] TPN Catheter Occlusion -occurred 05/23 evening, likely lipid occlusion -TPN and lipid emulsion on hold - switched to PPN at this time without lipids -working with nutrition and pharmacy to determine how to remove blockage -will speak with surgery regarding her port -Ordered midline placement to run nutrition PPN in the mean time. Stoma infection: -Had pseudomonas bacteremia in September of 2019 sec to stoma infection -05/11 w/ bleeding at stoma and development of some swelling around stoma. -05/12 development of erythema and discharge at stoma. -Wound culture with Enterococcus -Was treated with Keflex, then Doxycycline, then Cefdinir with some improvement -Discharge not much changed, still with episodes of moderate discharge. Iron deficient anemia, chronic -Ferritin at 3.5 today indicating severe iron deficient anemia -Discussed modalities of iron supplementation and at this time most likely would be Rylee followed by iron dextran -She would like to discuss this with her utility lineman, yet to hear back -Hemoglobin at 7.8 today, consider transfusion if below 7 with symptoms -Continue to monitor with daily CBC. Seizure-like activity -Patient with multiple episodes of seizure-like activity which seem to be triggered by severe pain -Patient was diagnosed with PNES recently at [facility]; however, suspect symptoms moreso represent vagal activity precipitated by pain -Optimize pain control (as above) -Continue seizure and fall precautions -Recommend following up with PNES clinic at [facility] - Given that her seizure-like activity resolves with and without narcotic usage, may be reasonable to consider non-narcotic options to manage her seizure like symptoms Severe protein-calorie malnutrition -Secondary to extensive GI pathology -05/06: restarting TPN -Plan to slowly introduce tube feeds pending clinical improvement Adrenal insufficiency -Chronic; hemodynamically stable -Continue hydrocortisone, fludrocortisone Covid - Resolved -Patient tested positive on 04/18/2022 (at [facility]), repeat PCR on [facility] still positive -Records from [facility] sent over. Isolation precautions removed. FEN: NPO other than crackers/sips, TPN per pharmacy, LR @ 80mL/hr + KCl 20Meq Code status: full code DVT ppx: SCDs Dispo: PCU. Dispo for home will depend upon adequate pain control as this is most likely the source of her seizure-like activity and syncopal episodes. Currently pending transfer to [facility], accepted transfer awaiting bed (2) Syncope: (3) Abdominal pain, chronic, generalized: (4) Adrenal insufficiency: (5) Chronic malnutrition: (6) Gastroparesis: (7) Gastrostomy tube in place: (8) Intestinal motility disorder: (9) Nausea and vomiting: (10) On total parenteral nutrition (TPN): (11) Severe protein-calorie malnutrition: (12) Iron deficiency anemia: Admission and Anticipated Discharge Date Admission Date: May 05, 2022 Supervising Physician Co-Signing Physician Notes Resident Physician Supervision Note: I independently interviewed and examined the patient and verified the solorzano history and physical, reviewed labs and image studies and agree with resident findings and care plan. Subjective Patient seen at bedside, tired. States pain was adequately controlled with PO oxycodone and PRN dilaudid, did ok without the HIGH DENSITY PRESS OPERATOR pump. Patient and mom understand we are still awaiting a bed at [place], however are still very worried that [facility] will fully remove her clogged port and insist on having it fixed here. Patient has consented to PICC line placement to provide nutrition in the mean time. Due to placement conflict given position of her port, this was switched to midline instead. Review of Systems 2 Review of Systems: All systems reviewed & are unremarkable except as noted in HPI & below Physical Exam Constitutional: + thin and cooperative Eyes: PERRL, conjunctivae normal, anicteric sclerae ENMT: external ear and nose normal, oropharynx normal Neck: trachea midline, no thyromegaly Respiratory: normal respiratory effort, lungs clear to auscultation Cardiovascular: RRR, no murmur, no edema Chest (Breasts): Chest: normal inspection of chest Gastrointestinal (Abdomen): Inspection/Auscultation: + abdominal surgical scar (with colostomy bag); abdomen not distended Percussion/Palpation: + abdomen tender (around ostomy site) and + guarding Skin: no rashes, warm and dry Results & Data Results & Data ([facility]) Vital Signs (Past 12 Hours) Vital Signs Temp Pulse Pulse Resp BP Pulse Ox O2 Del Method 05/26/22 07:00 36.6 C 93 H 20 111/78 99 Room Air 05/26/22 05:56 36.6 C 101 H 16 105/74 96 Room Air 05/25/22 20:00 Room Air 05/25/22 21:56 94 H 05/25/22 23:45 36.5 C 124 H 16 119/83 98 Room Air 05/25/22 19:33 36.8 C 118 H 16 115/79 95 Room Air Resident Activity Tracking Resident Involvement: Resident Care Provided Care Provided: Adult Hospital Medicine
[2022-05-26] MEDS: DULoxetine HCL 60 MG CAP PO SCH (08:59)
[2022-05-26] MEDS: FLUDROCORTISONE ACETATE 0.1 MG TAB PO SCH ×2 (08:59→20:42)
[2022-05-26] MEDS: HYDROCORTISONE 10 MG TAB PO SCH ×2 (09:00→14:16)
[2022-05-26] MEDS: PANTOprazole 40 MG TAB PO SCH (09:00)
[2022-05-26] MEDS: FAMOTIDINE 20 MG TAB PO SCH ×2 (09:01→20:42)
[2022-05-26] MEDS: METHOCARBAMOL 750 MG TABLET PO PRN ×2 (09:04→20:43)
[2022-05-26] MEDS: POLYETHYLENE (MIRALAX) 17 GM PACK PO SCH (09:12)
[2022-05-26] MEDS: GABAPENTIN 250 MG/5 ML 470 ML BTL PO SCH ×3 (09:12→20:44)
[2022-05-26] MEDS ORDERED: D5W IV SCH (16:00)
[2022-05-26] MEDS ORDERED: PERIPHERAL TPN IV SCH (16:00)
[2022-05-26] MEDS ORDERED: AMINO ACIDS 4.25% IV SCH (16:00)
[2022-05-26] MEDS: ondansetron HCL 8 MG in DEXTROSE 5% 50 ML IV PRN ×2 (16:16→22:36)
[2022-05-27] MEDS: LORazepam 1 mg IV INJ IV PRN ×4 (00:20→22:37)
[2022-05-27] MEDS: HYDROmorphone INJ 0.5 MG/0.5 ML SYR IV PRN ×8 (00:20→22:12)
[2022-05-27] MEDS: oxyCODONE HCL SOLN 5 MG/5 ML UDC PO SCH ×5 (00:29→08:51)
[2022-05-27] MEDS: DICYCLOMINE HCL 10 MG CAP PO PRN ×3 (04:33→22:12)
[2022-05-27] MEDS: ondansetron HCL 8 MG in DEXTROSE 5% 50 ML IV PRN ×3 (04:38→19:56)
--- NOTE | 2022-05-27 07:18 | Hospitalist Progress Note ---
Date of Service May 27, 2022 Assessment & Plan (1) Seizure-like activity: Plan: 32yo female a complex PMH including gastroparesis, SMA syndrome, ileostomy placement, G-tube placement (on TPN), and adrenal insufficiency presents after multiple episodes of seizure-like activity at home, as well as with intractable abdominal pain and nausea. Chronic generalized abdominal pain, extensive GI history -Patient with very extensive GI history including gastroparesis and multiple abdominal surgeries -Possible intestinal transplant at [facility] -Lactate elevated on admission, but repeat value (05/05) not elevated -Gentle IVF, electrolyte repletion -Continue bentyl, duloxetine, pepcid, protonix, gabapentin. Continue zofran and ativan staggered for nausea -05/06: CT a/p: mild stranding adjacent to the distal stomach with trace per igastric and perihepatic fluid, possibly postsurgical though gastritis/peptic ulcer disease is within the differential; no pneumoperitoneum; no intussusception; no bowel obstruction; status post subtotal colectomy with right lower quadrant ileostomy -05/07: CT a/p w/IV and oral contrast via G tube: mild improvement in wall thickening and adjacent fat stranding at the distal stomach -Pain regime stopped SCHOOL CROSSING GUARD ordered liquid oxycodone 20mg q2h scheduled ordered dilaudid 0.5mg q2h PRN for pain -Consulted pain management for potential alternative treatments =no alternative recommendations at this time. -Triggers for patient's pain mostly isolated to moving G-J tube or ostomy site. May likely be caused by adhesional traction of stoma. Will need to discuss with patient's surgeon at [facility] if willing to see her for this, if not may engage local surgeon for opinion on the matter. However will treat potential soft tissue stoma infection first. -Increased her fentanyl patch from 50 mg to 75mcg on 05/19/22 with the hope of tapering her off of SCHOOL CROSSING GUARD pump. Continue to monitor Tomorrow will remove the 25mcg patch and assess if the fentanyl was assisting in her pain management. Will consider also adding a long acting oxycodone. -currently hoping for transfer to [place] for stoma revision to reduce pain [place] transfer number [phone] [place] surgeon number [phone] TPN Catheter Occlusion -occurred 05/23 evening, likely lipid occlusion -TPN and lipid emulsion on hold - switched to PPN at this time without lipids -Ordered midline placement to run nutrition PPN in the mean time. unable to place midline due to narrow veins -port not alcohol compatible for treating lipid occlusion. -fluoroscopy for a port check unable to be performed since not able to push contrast through it -surgery consulted Stoma infection: -Had pseudomonas bacteremia in September of 2019 sec to stoma infection -05/11 w/ bleeding at stoma and development of some swelling around stoma. -05/12 development of erythema and discharge at stoma. -Wound culture with Enterococcus -Was treated with Keflex, then Doxycycline, then Cefdinir with some improvement -Discharge not much changed, still with episodes of moderate discharge. Iron deficient anemia, chronic -Ferritin at 3.5 indicating severe iron deficient anemia -Discussed modalities of iron supplementation and at this time most likely would be Rylee followed by iron dextran -She would like to discuss this with her traffic and transport planner, yet to hear back -Hemoglobin at 7.3 today, consider transfusion if below 7 with symptoms -Continue to monitor with daily CBC. Seizure-like activity -Patient with multiple episodes of seizure-like activity which seem to be triggered by severe pain -Patient was diagnosed with PNES recently at [facility]; however, suspect symptoms moreso represent vagal activity precipitated by pain -Optimize pain control (as above) -Continue seizure and fall precautions -Recommend following up with PNES clinic at [facility] - Given that her seizure-like activity resolves with and without narcotic usage, may be reasonable to consider non-narcotic options to manage her seizure like symptoms Severe protein-calorie malnutrition -Secondary to extensive GI pathology -05/06: restarting TPN -05/23: port malfunction, TPN stopped, switched to PPN -Plan to slowly introduce tube feeds pending clinical improvement Adrenal insufficiency -Chronic; hemodynamically stable -Continue hydrocortisone, fludrocortisone Covid - Resolved -Patient tested positive on 04/18/2022 (at [facility]), repeat PCR on admission still positive -Records from [facility] sent over. Isolation precautions removed. FEN: NPO other than crackers/sips, PPN per pharmacy, LR @ 80mL/hr + KCl 20Meq Code status: full code DVT ppx: SCDs Dispo: PCU. Dispo for home will depend upon adequate pain control as this is most likely the source of her seizure-like activity and syncopal episodes. Currently pending transfer to [facility], accepted transfer awaiting bed (2) Syncope: (3) Abdominal pain, chronic, generalized: (4) Adrenal insufficiency: (5) Chronic malnutrition: (6) Gastroparesis: (7) Gastrostomy tube in place: (8) Intestinal motility disorder: (9) Nausea and vomiting: (10) On total parenteral nutrition (TPN): (11) Severe protein-calorie malnutrition: (12) Iron deficiency anemia: Admission and Anticipated Discharge Date Admission Date: May 05, 2022 Supervising Physician Co-Signing Physician Notes Resident Physician Supervision Note: I independently interviewed and examined the patient and verified the solorzano history and physical, reviewed labs and image studies and agree with resident findings and care plan. Subjective Patient seen at bedside, tired. States she had more pain seizures overnight. Mom is anxious about getting port resolved before [place], feels like nothing is being done. Review of Systems Review of Systems: All systems reviewed & are unremarkable except as noted in HPI & below Physical Exam Constitutional: + thin and cooperative Eyes: PERRL, conjunctivae normal, anicteric sclerae ENMT: external ear and nose normal, oropharynx normal Neck: trachea midline, no thyromegaly Respiratory: normal respiratory effort, lungs clear to auscultation Cardiovascular: RRR, no murmur, no edema Chest (Breasts): Chest: normal inspection of chest Gastrointestinal (Abdomen): Inspection/Auscultation: + abdominal surgical scar (with colostomy bag); abdomen not distended Percussion/Palpation: + abdomen tender (around ostomy site) and + guarding Skin: no rashes, warm and dry Results & Data Results & [facility] ([facility]) Vital Signs (Past 12 Hours) Vital Signs Temp Pulse Pulse Pulse Resp BP BP 05/27/22 02:50 119 H 20 114/78 05/27/22 00:13 119 H 14 100/57 L 05/26/22 23:31 101 H 05/26/22 22:56 36.5 C 113 H 18 115/79 05/26/22 20:39 36.8 C 115 H 16 112/72 05/26/22 19:35 36.9 C 101 H 18 105/70 Pulse Ox O2 Del Method 05/27/22 02:50 94 Room Air 05/27/22 00:13 98 Room Air 05/26/22 23:31 05/26/22 22:56 98 Room Air 05/26/22 20:39 97 Room Air 05/26/22 19:35 97 Room Air Resident Activity Tracking Resident Involvement: Resident Care Provided Care Provided: Adult Hospital Medicine
[2022-05-27] MEDS: DULoxetine HCL 60 MG CAP PO SCH (08:51)
[2022-05-27] MEDS: fentaNYL 50 MCG/HR TDSY TD SCH (08:52)
[2022-05-27] MEDS: FAMOTIDINE 20 MG TAB PO SCH ×2 (08:52→19:58)
[2022-05-27] MEDS: FLUDROCORTISONE ACETATE 0.1 MG TAB PO SCH ×2 (08:53→19:58)
[2022-05-27] MEDS: GABAPENTIN 250 MG/5 ML 470 ML BTL PO SCH ×3 (08:53→19:58)
[2022-05-27] MEDS: PANTOprazole 40 MG TAB PO SCH (08:54)
[2022-05-27] MEDS: HYDROCORTISONE 10 MG TAB PO SCH ×2 (08:54→14:06)
[2022-05-27] MEDS: POLYETHYLENE (MIRALAX) 17 GM PACK PO SCH (08:55)
[2022-05-27] MEDS: CHECK fentaNYL PATCH PLACEMENT SCH ×4 (09:03→16:03)
[2022-05-27 09:14] LABS: Hemoglobin 7.3 g/dl (12.0-16.0); Mean Corpuscular Hemoglobin 27.2 pg (25.0-34.0); Mean Corpuscular Hgb Conc 30.4 g/dL (32.0-36.0); Mean Corpuscular Volume 89.6 fL (80.0-100.0); Mean Platelet Volume 10.9 fL (9.4-12.3); Platelet Count 324 K/uL (130-400); RDW Coefficient of Variation 13.8 % (11.5-14.5); RDW Standard Deviation 45.3 fL (36.4-46.3); Red Blood Count 2.68 M/uL (3.93-5.22); White Blood Count 5.01 K/ul (4.8-10.8)
[2022-05-27 09:55] LABS: Calcium 8.2 mg/dl (8.5-10.1); Est GFR (Non-African American) 121.7 ml/min; Phosphorus 3.4 mg/dl (2.5-4.9); Potassium 4.1 mmol/L (3.5-5.1)
[2022-05-27] MEDS: oxyCODONE INTENSOL 20 MG/1 ML UDP PO SCH ×7 (11:02→23:28)
--- NOTE | 2022-05-27 12:59 | Communication Note ---
Date of Service: May 27, 2022 Our services consulted for clogged a-port. Patient has been accepted to [facility] for transfer just waiting for bed. Complex GI history. Aport w as being used for TPN, might be clogged. Would consider a-port study to evaluate port prior to discussion of need of removal. Dr. Rodgers discussed with Dr. Turner who has been in discussion with pharmacy to attempt unclogging port. Would avoid any surgical intervention regarding the aport at this facility if patient is being transferred and will be managed by [facility]. Please call with any questions/concerns.
--- NOTE | 2022-05-27 15:34 | Fluoroscopy Report ---
[place] a-port check CLINICAL HISTORY: port clogged possible lipids COMPARISON STUDY: None. FLUOROSCOPY TIME: 5 seconds.. FINDINGS: A single fluoroscopic spot image of the chest was obtained. There is a right jugular Port-A -Cath which terminates at the expected location SVC. A contrast-filled syringe was attached to the pr evious access Port-A-Cath. No blood flow obtained during aspiration. Contrast was unable to be pushed through the indwelling port. Therefore, the study is essentially nondiagnostic to explain etiology o f the obstructed port. IMPRESSION: Contrast was unable to be pushed through the indwelling port. Therefore, the study is ess entially nondiagnostic to explain the etiology of the obstructed port. ACT 112: Negative or not required by law. Electronically signed by: Victor Hugo Snowden M.D. 05/27/2022 3:32 PM
[2022-05-27] MEDS ORDERED: D5W IV SCH ×2 (16:00)
[2022-05-27] MEDS ORDERED: PERIPHERAL TPN IV SCH ×2 (16:00)
[2022-05-27] MEDS ORDERED: AMINO ACIDS 4.25% IV SCH ×2 (16:00)
[2022-05-27] MEDS: MELATONIN 3 MG TAB PO PRN (19:58)
[2022-05-27] MEDS: HYOSCYAMINE SULFATE 0.125 MG TAB SL PRN (19:58)
[2022-05-27] MEDS: METHOCARBAMOL 750 MG TABLET PO PRN (20:35)
[2022-05-28] MEDS: CHECK fentaNYL PATCH PLACEMENT SCH ×5 (00:33→15:44)
[2022-05-28] MEDS: HYDROmorphone INJ 0.5 MG/0.5 ML SYR IV PRN ×7 (01:26→22:28)
[2022-05-28] MEDS: oxyCODONE INTENSOL 20 MG/1 ML UDP PO SCH ×12 (01:28→23:21)
[2022-05-28] MEDS: ondansetron HCL 8 MG in DEXTROSE 5% 50 ML IV PRN ×3 (02:09→22:29)
[2022-05-28] MEDS: DICYCLOMINE HCL 10 MG CAP PO PRN ×2 (04:20→20:02)
[2022-05-28] MEDS: LORazepam 1 mg IV INJ IV PRN ×3 (04:42→20:27)
--- NOTE | 2022-05-28 06:47 | Hospitalist Progress Note ---
Date of Service May 28, 2022 Assessment & Plan (1) Seizure-like activity: Plan: 32yo female a complex PMH including gastroparesis, SMA syndrome, ileostomy placement, G-tube placement (on TPN), and adrenal insufficiency presents after multiple episodes of seizure-like activity at home, as well as with intractable abdominal pain and nausea. Chronic generalized abdominal pain, extensive GI history -Patient with very extensive GI history including gastroparesis and multiple abdominal surgeries -Possible intestinal transplant at [facility] -Lactate elevated on admission, but repeat value (05/05) not elevated -Gentle IVF, electrolyte repletion -Continue bentyl, duloxetine, pepcid, protonix, gabapentin. Continue zofran and ativan staggered for nausea -05/06: CT a/p: mild stranding adjacent to the distal stomach with trace per igastric and perihepatic fluid, possibly postsurgical though gastritis/peptic ulcer disease is within the differential; no pneumoperitoneum; no intussusception; no bowel obstruction; status post subtotal colectomy with right lower quadrant ileostomy -05/07: CT a/p w/IV and oral contrast via G tube: mild improvement in wall thickening and adjacent fat stranding at the distal stomach -Pain regime stopped PLATE SETTER ordered liquid oxycodone 20mg q2h scheduled ordered dilaudid 0.5mg q2h PRN for pain -Consulted pain management for potential alternative treatments =no alternative recommendations at this time. -Triggers for patient's pain mostly isolated to moving G-J tube or ostomy site. May likely be caused by adhesional traction of stoma. Will need to discuss with patient's surgeon at [facility] if willing to see her for this, if not may engage local surgeon for opinion on the matter. However will treat potential soft tissue stoma infection first. -Increased her fentanyl patch from 50 mg to 75mcg on 05/19/22 with the hope of tapering her off of PLATE SETTER pump. Continue to monitor decreased fentanyl to 50mcg on 05/28. Will consider also adding a long acting oxycodone. -currently hoping for transfer to [place] for stoma revision to reduce pain [place] transfer number [phone] [place] surgeon number [phone] TPN Catheter Occlusion -occurred 05/23 evening, likely lipid occlusion -TPN and lipid emulsion on hold - switched to PPN at this time without lipids -Ordered midline placement to run nutrition PPN in the mean time. unable to place midline due to narrow veins -port not alcohol compatible for treating lipid occlusion. -fluoroscopy for a port check unable to be performed since not able to push contrast through it -surgery consulted, surgery scheduled for tomorrow Stoma infection: -Had pseudomonas bacteremia in September of 2019 sec to stoma infection -05/11 w/ bleeding at stoma and development of some swelling around stoma. -05/12 development of erythema and discharge at stoma. -Wound culture with Enterococcus -Was treated with Keflex, then Doxycycline, then Cefdinir with some improvement -Discharge not much changed, still with episodes of moderate discharge. Iron deficient anemia, chronic -Ferritin at 3.5 indicating severe iron deficient anemia -Discussed modalities of iron supplementation and at this time most likely would be Rylee followed by iron dextran -She would like to discuss this with her pilot captain, yet to hear back -Hemoglobin at 7.8 today, consider transfusion if below 7 with symptoms -Continue to monitor with daily CBC. Seizure-like activity -Patient with multiple episodes of seizure-like activity which seem to be triggered by severe pain -Patient was diagnosed with PNES recently at [facility]; however, suspect symptoms moreso represent vagal activity precipitated by pain -Optimize pain control (as above) -Continue seizure and fall precautions -Recommend following up with PNES clinic at [facility] - Given that her seizure-like activity resolves with and without narcotic usage, may be reasonable to consider non-narcotic options to manage her seizure like symptoms Severe protein-calorie malnutrition -Secondary to extensive GI pathology -05/06: restarting TPN -05/23: port malfunction, TPN stopped, switched to PPN -Plan to slowly introduce tube feeds pending clinical improvement Adrenal insufficiency -Chronic; hemodynamically stable -Continue hydrocortisone, fludrocortisone Covid - Resolved -Patient tested positive on 04/18/2022 (at [facility]), repeat PCR on admission still positive -Records from [facility] sent over. Isolation precautions removed. FEN: NPO other than crackers/sips, PPN per pharmacy, LR @ 80mL/hr + KCl 20Meq. NPO midnight Code status: full code DVT ppx: SCDs Dispo: PCU. Dispo for home will depend upon adequate pain control as this is most likely the source of her seizure-like activity and syncopal episodes. Currently pending transfer to [facility], accepted transfer awaiting bed (2) Syncope: (3) Abdominal pain, chronic, generalized: (4) Adrenal insufficiency: (5) Chronic malnutrition: (6) Gastroparesis: (7) Gastrostomy tube in place: (8) Intestinal motility disorder: (9) Nausea and vomiting: (10) On total parenteral nutrition (TPN): (11) Severe protein-calorie malnutrition: (12) Iron deficiency anemia: Admission and Anticipated Discharge Date Admission Date: May 05, 2022 Supervising Physician Co-Signing Physician Notes Resident Physician Supervision Note: I independently interviewed and examined the patient and verified the solorzano history and physical, reviewed labs and image studies and agree with resident findings and care plan. Subjective Patient seen at bedside, pale but conversive. States last night was ok, had some pain seizures. Patient's mom still anxious about her port. Discussed decreasing her fentanyl given her lack of response to the medication, patient and family agreeable. They are aware we are contacting surgery for her port. Still pending transfer to [place]. Review of Systems Review of Systems: All systems reviewed & are unremarkable except as noted in HPI & below Physical Exam Constitutional: + thin and cooperative Eyes: PERRL, conjunctivae normal, anicteric sclerae ENMT: external ear and nose normal, oropharynx normal Neck: trachea midline, no thyromegaly Respiratory: normal respiratory effort, lungs clear to auscultation Cardiovascular: RRR, no murmur, no edema Chest (Breasts): Chest: normal inspection of chest Gastrointestinal (Abdomen): Inspection/Auscultation: + abdominal surgical scar (with colostomy bag); abdomen not distended Percussion/Palpation: + abdomen tender (around ostomy site) and + guarding Skin: no rashes, warm and dry Results & Data Results & Data ([facility]) Vital Signs (Past 12 Hours) Vital Signs Temp Pulse Pulse Resp BP BP Pulse Ox 05/28/22 04:06 108 H 14 107/67 99 05/28/22 02:06 36.6 C 103 H 18 97/59 L 97 05/27/22 23:10 110 H 05/27/22 22:10 36.8 C 102 H 18 100/69 98 05/27/22 19:50 36.9 C 113 H 19 103/65 97 O2 Del Method 05/28/22 04:06 Room Air 05/28/22 02:06 Room Air 05/27/22 23:10 05/27/22 22:10 Room Air 05/27/22 19:50 Room Air Resident Activity Tracking Resident Involvement: Resident Care Provided Care Provided: Adult Hospital Medicine
[2022-05-28] MEDS: GABAPENTIN 250 MG/5 ML 470 ML BTL PO SCH ×3 (08:33→20:01)
[2022-05-28] MEDS: POLYETHYLENE (MIRALAX) 17 GM PACK PO SCH (08:33)
[2022-05-28] MEDS: fentaNYL 25 MCG/HR TDSY TD SCH (08:34)
[2022-05-28] MEDS: DULoxetine HCL 60 MG CAP PO SCH (08:34)
[2022-05-28] MEDS: HYDROCORTISONE 10 MG TAB PO SCH ×2 (08:35→15:05)
[2022-05-28] MEDS: FAMOTIDINE 20 MG TAB PO SCH ×2 (08:35→20:02)
[2022-05-28] MEDS: FLUDROCORTISONE ACETATE 0.1 MG TAB PO SCH ×2 (08:35→20:02)
[2022-05-28] MEDS: PANTOprazole 40 MG TAB PO SCH (08:36)
[2022-05-28 09:51] LABS: Hematocrit (blood only) 25.3 % (34.1-44.9); Hemoglobin 7.8 g/dl (12.0-16.0); Mean Corpuscular Hemoglobin 27.7 pg (25.0-34.0); Mean Corpuscular Hgb Conc 30.8 g/dL (32.0-36.0); Mean Corpuscular Volume 89.7 fL (80.0-100.0); Mean Platelet Volume 10.9 fL (9.4-12.3); Platelet Count 352 K/uL (130-400); RDW Coefficient of Variation 13.6 % (11.5-14.5); RDW Standard Deviation 44.5 fL (36.4-46.3); Red Blood Count 2.82 M/uL (3.93-5.22); White Blood Count 6.68 K/ul (4.8-10.8)
[2022-05-28 10:07] LABS: Calcium 8.3 mg/dl (8.5-10.1); Creatinine Clr Calc Pharmacy 118.5 ml/min; Est GFR (African American) 138.1 ml/min; Est GFR (Non-African American) 119.1 ml/min; Phosphorus 3.4 mg/dl (2.5-4.9); Potassium 3.7 mmol/L (3.5-5.1)
[2022-05-28 10:08] LABS: Bilirubin,Total 0.2 mg/dl (0.2-1.0)
--- NOTE | 2022-05-28 15:20 | Surgery Consultation ---
Date of Consultation May 28, 2022 Assessment & Plan (1) Encounter for care related to vascular access port: 32-year-old woman with a nonfunctioning access port. She requires the access port for nutritional therapy. Discussed with her the risks and benefits of replacing the access port. All her questions were answered, she is agreeable to proceed. We will take her to the operating room tomorrow morning for access port replacement. She will be n.p.o. after midnight tonight. History of Present Illness Reason for Consultation: Clogged access port Requesting Physician: Catrina Turner MD Attending Physician: Catrina Turner MD History of Present Illness 32-year-old woman with extensive past medical history of bowel issues, colectomy, various PEG tubes, presents with a clogged access port. She has had the access port for 3 years. She receives PPN through the port. She has had a prior port on the left side in the subclavian vein. She developed sepsis and the port was removed. Subsequently she had a port on the right through the subclavian, however it was kinking under the clavicle. The port was then switched to the right IJ vein. Recently while receiving lipids through the port, it stopped working. A port study was unable to be completed. It will not flush or draw. She denies fevers or chills. She denies chest pain or shortness of breath. Allergies Allergy/AdvReac Type Severity Reaction Status Date / Time adhesive Allergy Severe Redness of Verified 05/02/22 13:45 Skin morphine Allergy Severe Severe Verified 05/02/22 13:45 abdominal Pain, sphincter of oddi spasms amoxicillin Allergy Intermediate RASH Verified 05/02/22 13:45 calcium Allergy Intermediate SEE COMMENT Verified 05/02/22 13:45 [From VIACTIV Multi-Vitamin] cefazolin Allergy Intermediate rash Verified 05/02/22 13:45 Cephalosporins Allergy Intermediate HIVES Verified 05/02/22 13:45 clavulanic acid Allergy Intermediate HIVES Verified 05/02/22 13:45 diphenhydramine Allergy Intermediate Anaphylaxis Verified 05/08/22 07:38 folic acid Allergy Intermediate SEE COMMENT Verified 05/02/22 13:45 [From VIACTIV Multi-Vitamin] iron [From Venofer] Allergy Intermediate Muscle Pain Verified 05/02/22 13:45 multivitamin with minerals Allergy Intermediate SEE COMMENT Verified 05/02/22 13:45 [From VIACTIV Multi-Vitamin] Penicillins Allergy Intermediate HIVES Verified 05/02/22 13:45 prochlorperazine Allergy Intermediate HIVES Verified 05/02/22 13:45 promethazine Allergy Intermediate hives, Verified 05/02/22 13:45 throat swelling sulfamethoxazole Allergy Intermediate RASH Verified 05/02/22 13:45 sumatriptan Allergy Intermediate RASH Verified 05/02/22 13:45 trimethoprim Allergy Intermediate RASH Verified 05/02/22 13:45 metoclopramide AdvReac Severe anxiety/ Verified 05/02/22 13:45 jittery erythromycin base AdvReac Intermediate GI SYMPTOMS Verified 05/02/22 13:45 citalopram [From Jason[facility]] AdvReac Unknown CAN'T Verified 05/02/22 13:45 REMEMBER Home Medications Medication Instructions Recorded Confirmed Type dicyclomine 10 mg capsule 10 - 20 mg PO Q6H PRN Abdominal 03/07/18 05/05/22 History Pain hyoscyamine sulfate 0.125 mg 0.125 mg sublingual Q4H PRN 03/07/18 05/05/22 History sublingual tablet (Levsin/SL) Abdominal Cramping pantoprazole 40 mg tablet,delayed 40 mg PO QAM 09/08/19 05/05/22 History release (Protonix) famotidine 40 mg tablet 20 mg PO BID 11/28/19 05/05/22 History lorazepam 2 mg/mL injection 0.5 mg buccal QID PRN Nausea 12/05/19 05/05/22 History solution (Ativan) hydrocortisone 10 mg tablet 10 - 15 mg PO BID 02/07/20 05/05/22 History ondansetron 4 mg disintegrating 4 mg translingual Q6H PRN Nausea 02/07/20 05/05/22 History tablet trimethobenzamide 300 mg capsule 300 mg PO Q6H PRN Nausea And 02/07/20 05/02/22 History Vomiting fexofenadine 180 mg tablet 180 mg PO PM 10/09/20 05/05/22 History gabapentin 250 mg/5 mL oral 300 mg PO TID 10/09/20 05/05/22 History solution fludrocortisone 0.1 mg tablet See Rx Instructions .Route .COMPLEX 12/12/20 05/05/22 History acetaminophen 500 mg tablet 1,000 mg PO Q6H PRN Pain 06/13/21 05/05/22 History (Tylenol Extra Strength) coenzyme Q10 100 mg capsule 0 mg PO PM 06/13/21 05/05/22 History (CoQ-10) multivitamin with minerals-folic 2 tab PO PM 06/13/21 05/05/22 History acid 200 mcg chewable tablet (Multivitamin Gummies) turmeric 400 mg capsule 400 mg PO PM 06/13/21 05/02/22 History empty container (Enema Misc Bottle) #72 ea 01/16/22 04/02/22 Rx hydromorphone 1 mg/mL oral liquid 2 mg PO Q4H PRN Pain 04/01/22 05/05/22 History cholecalciferol (vitamin D3) 25 50 mcg PO DAILY 04/07/22 05/05/22 History mcg (1,000 unit) capsule (Vitamin D3) duloxetine 60 mg capsule,delayed 60 mg PO DAILY 04/07/22 05/05/22 History release methocarbamol 750 mg tablet 750 mg PO Q8H PRN MUSCLE SPASMS 04/07/22 05/05/22 History Patient History Medical History Asthma Chronic migraine Colitis Diversion colitis Elevated lipase Endometriosis has had 3 surgeries for this. Last surgery [address] Hemorrhagic cystitis Hypotension Intussusception Pancreatitis PICC (peripherally inserted central catheter) in place TPN SMAS (superior mesenteric artery syndrome) History of SMAS Sphincter of Oddi dysfunction DECREASED GI MOTILITY Transaminitis Uses feeding tube gastroparesis and decreased GI motility can not tolerate feeding and uses TPN UTI (urinary tract infection) Surgical History H/O adenoidectomy H/O laparoscopy H/O lumpectomy right breast 2011 History of appendectomy History of bowel resection Part of duodenum removed due to necrosis; done at [facility] 2019 History of hysterectomy 09/27/19 History of removal of Port-a-Cath 10/13/[address] Geiger, [facility], due to bacteremia/sepsis. History of vascular access device 2018 Hx of colonoscopy during procedure perforated small bowel 10/27/2019 at [facility], subsequent repair of duodenal area. Hx of ileostomy Hx of tonsillectomy S/P cholecystectomy 2015 S/P wrist surgery right Family History Father Hyperlipidemia Other No significant family history Social History Smoking Status: Never smoker Second Hand Exposure: No; Hx Alcohol Use: No Hx Substance Use: No Preferred Language: Korean Communication Ability: Effective Visual Impairment: No Limitations Hearing Ability: Normal Bowling Ball Grader And Marker Required: No Beliefs That Will Affect Care: None marital status: Single Current Living Situation: Parent and Family Current Living Situation Comment: Lives with family. current occupational status: unemployed current occupation: completed 4-year degree at [employer] How many Children do You have: 0 Other Information That Helps Us Care for You: No Feels Safe at Home: Yes Safety Concerns: Feels Safe At This Time Sexual Activity Comment: not sexually active Assistive Devices: None Review of Systems Review of Systems: All systems reviewed & are unremarkable except as noted in HPI & below Physical Exam Constitutional: WD/WN, vitals as above Eyes: PERRL, conjunctivae normal, anicteric sclerae Neck: trachea midline, no thyromegaly Respiratory: normal respiratory effort; no respiratory distress and no labored breathing Cardiovascular: Rate/Rhythm: regular rate and regular rhythm Gastrointestinal (Abdomen): Inspection/Auscultation: abdomen normal to inspection; abdomen not distended Percussion/Palpation: abdomen soft; abdomen nontender Skin: no rashes, warm and dry Psychiatric: A+Ox3, euthymic affect Results & Data ([facility]) Vital Signs (Past 12 Hours) Vital Signs Temp Pulse Pulse Resp BP BP Pulse Ox 05/28/22 15:08 100 H 05/28/22 14:09 111 H 12 115/76 98 05/28/22 08:30 94 H 05/28/22 07:54 36.6 C 91 H 18 101/69 95 05/28/22 10:48 36.9 C 108 H 12 113/78 99 05/28/22 04:06 108 H 14 107/67 99 O2 Del Method 05/28/22 15:08 05/28/22 14:09 Room Air 05/28/22 08:30 05/28/22 07:54 Room Air 05/28/22 10:48 Room Air 05/28/22 04:06 Room Air
[2022-05-28] MEDS ORDERED: PERIPHERAL TPN IV SCH (16:00)
[2022-05-28] MEDS ORDERED: D5W IV SCH (16:00)
[2022-05-28] MEDS ORDERED: AMINO ACIDS 4.25% IV SCH (16:00)
--- NOTE | 2022-05-28 16:45 | Anesthesiology Consultation ---
Date of Service May 28, 2022 Assessment & Plan Chart Review Chart Review: Acceptable Risk for Surgery and Patient NOT seen in Pre Admission Testing Consults Requested none ASA ASA4 Proposed Anesthesia Anesthesia Type: MAC History Surgery Operation Date: 05/29/22 10:00 Proposed Procedures p Access Port Removal and Replacement - Leo Rodgers MD Height/Weight Height: 5 ft 6 in Weight: 59.3 kg Allergies Allergy/AdvReac Type Severity Reaction Status Date / Time adhesive Allergy Severe Redness of Verified 05/02/22 13:45 Skin morphine Allergy Severe Severe Verified 05/02/22 13:45 abdominal Pain, sphincter of oddi spasms amoxicillin Allergy Intermediate RASH Verified 05/02/22 13:45 calcium Allergy Intermediate SEE COMMENT Verified 05/02/22 13:45 [From VIACTIV Multi-Vitamin] cefazolin Allergy Intermediate rash Verified 05/02/22 13:45 Cephalosporins Allergy Intermediate HIVES Verified 05/02/22 13:45 clavulanic acid Allergy Intermediate HIVES Verified 05/02/22 13:45 diphenhydramine Allergy Intermediate Anaphylaxis Verified 05/08/22 07:38 folic acid Allergy Intermediate SEE COMMENT Verified 05/02/22 13:45 [From VIACTIV Multi-Vitamin] iron [From Venofer] Allergy Intermediate Muscle Pain Verified 05/02/22 13:45 multivitamin with minerals Allergy Intermediate SEE COMMENT Verified 05/02/22 13:45 [From VIACTIV Multi-Vitamin] Penicillins Allergy Intermediate HIVES Verified 05/02/22 13:45 prochlorperazine Allergy Intermediate HIVES Verified 05/02/22 13:45 promethazine Allergy Intermediate hives, Verified 05/02/22 13:45 throat swelling sulfamethoxazole Allergy Intermediate RASH Verified 05/02/22 13:45 sumatriptan Allergy Intermediate RASH Verified 05/02/22 13:45 trimethoprim Allergy Intermediate RASH Verified 05/02/22 13:45 metoclopramide AdvReac Severe anxiety/ Verified 05/02/22 13:45 jittery erythromycin base AdvReac Intermediate GI SYMPTOMS Verified 05/02/22 13:45 citalopram [From Celexa] AdvReac Unknown CAN'T Verified 05/02/22 13:45 REMEMBER Medications Home Medications Medication Instructions Recorded Confirmed Last Taken dicyclomine 10 mg capsule 10 - 20 mg PO Q6H PRN Abdominal 03/07/18 05/05/22 06/12/21 Pain 20 mg hyoscyamine sulfate 0.125 mg 0.125 mg sublingual Q4H PRN 03/07/18 05/05/22 06/12/21 sublingual tablet (Levsin/SL) Abdominal Cramping pantoprazole 40 mg tablet,delayed 40 mg PO QAM 09/08/19 05/05/22 04/06/22 release (Protonix) famotidine 40 mg tablet 20 mg PO BID 11/28/19 05/05/22 04/06/22 lorazepam 2 mg/mL injection 0.5 mg buccal QID PRN Nausea 12/05/19 05/05/22 04/06/22 solution (Ativan) hydrocortisone 10 mg tablet 10 - 15 mg PO BID 02/07/20 05/05/22 04/06/22 ondansetron 4 mg disintegrating 4 mg translingual Q6H PRN Nausea 02/07/20 05/05/22 06/12/21 tablet trimethobenzamide 300 mg capsule 300 mg PO Q6H PRN Nausea And 02/07/20 05/02/22 Unknown Vomiting fexofenadine 180 mg tablet 180 mg PO PM 10/09/20 05/05/22 04/06/22 gabapentin 250 mg/5 mL oral 300 mg PO TID 10/09/20 05/05/22 04/06/22 solution fludrocortisone 0.1 mg tablet See Rx Instructions .Route .COMPLEX 12/12/20 05/05/22 04/06/22 acetaminophen 500 mg tablet 1,000 mg PO Q6H PRN Pain 06/13/21 05/05/22 06/12/21 (Tylenol Extra Strength) 1000 mg coenzyme Q10 100 mg capsule 0 mg PO PM 06/13/21 05/05/22 04/06/22 (CoQ-10) multivitamin with minerals-folic 2 tab PO PM 06/13/21 05/05/22 04/06/22 acid 200 mcg chewable tablet (Multivitamin Gummies) turmeric 400 mg capsule 400 mg PO PM 06/13/21 05/02/22 04/06/22 empty container (Enema Misc Bottle) #72 ea 01/16/22 04/02/22 Unknown hydromorphone 1 mg/mL oral liquid 2 mg PO Q4H PRN Pain 04/01/22 05/05/22 Unknown cholecalciferol (vitamin D3) 25 50 mcg PO DAILY 04/07/22 05/05/22 04/06/22 mcg (1,000 unit) capsule (Vitamin D3) duloxetine 60 mg capsule,delayed 60 mg PO DAILY 04/07/22 05/05/22 04/06/22 release methocarbamol 750 mg tablet 750 mg PO Q8H PRN MUSCLE SPASMS 04/07/22 05/05/22 Unknown Active Medications Generic Name Dose Route Start Last Admin Trade Name Freq PRN Reason Stop Dose Admin Dicyclomine HCl 20 mg 05/05/22 09:43 05/28/22 04:20 Dicyclomine Hcl 10 Mg Cap PO 06/04/22 09:42 20 mg Q6H PRN Administration Abdominal Pain Duloxetine HCl 60 mg 05/05/22 09:43 05/28/22 08:34 Duloxetine Hcl 60 Mg Cap PO 06/04/22 09:42 60 mg DAILY EMERALD Administration Famotidine 20 mg 05/05/22 09:43 05/28/22 08:35 Famotidine 20 Mg Tab PO 06/04/22 09:42 20 mg BID EMERALD Administration Fentanyl 50 mcg 05/18/22 12:00 05/27/22 08:52 Fentanyl 50 Mcg/Hr Tdsy TD 06/01/22 11:59 50 mcg Q3D@0900 EMERALD Administration Fludrocortisone Acetate 0.2 mg 05/05/22 09:43 05/28/22 08:35 Fludrocortisone Acetate 0.1 Mg Tab PO 06/04/22 09:42 0.2 mg QAM EMERALD Administration Fludrocortisone Acetate 0.1 mg 05/05/22 21:00 05/27/22 19:58 Fludrocortisone Acetate 0.1 Mg Tab PO 06/04/22 20:59 0.1 mg PM EMERALD Administration Gabapentin 300 mg 05/05/22 09:43 05/28/22 15:05 Gabapentin 250 Mg/5 Ml 470 Ml Btl PO 06/04/22 09:42 300 mg TID EMERALD Administration Heparin Sodium (Porcine) 5 ml 05/06/22 01:34 05/19/22 15:14 Heparin 100 Unit/Ml 5ml Flush FLUSH 06/05/22 01:33 5 ml PRN PRN Administration Flush Hydrocortisone 15 mg 05/05/22 09:43 05/28/22 08:35 Hydrocortisone 10 Mg Tab PO 06/04/22 09:42 15 mg QAM EMERALD Administration Hydrocortisone 10 mg 05/05/22 14:00 05/28/22 15:05 Hydrocortisone 10 Mg Tab PO 06/04/22 13:59 10 mg DAILY@1400 EMERALD Administration Hydromorphone HCl 0.5 mg 05/27/22 15:00 05/28/22 14:06 Hydromorphone Inj 0.5 Mg/0.5 Ml Syr IV 06/08/22 14:59 0.5 mg Q2H PRN Administration Severe Pain Hyoscyamine 0.125 mg 05/05/22 09:55 05/27/22 19:58 Hyoscyamine Sulfate 0.125 Mg Tab SL 06/04/22 09:54 0.125 mg Q4H PRN Administration Abdominal Cramping Ondansetron HCl 8 mg/ Dextrose 54 mls @ 216 mls/hr 05/07/22 11:53 05/28/22 08:49 IV 06/06/22 11:52 Infused Q6H PRN Infusion Nausea Sodium Chloride 1,000 mls @ 15 mls/hr 05/19/22 15:45 05/25/22 17:39 Nss 1000ml IV 06/02/22 15:44 Infused .Q24H EMERALD Infusion Amino Acids 2,131.2 ml/ 2,131.2 mls @ 88.8 mls/hr 05/28/22 16:00 05/28/22 15:34 Nutrition (Parenteral) IV 05/29/22 15:59 88.8 mls/hr .Q24H EMERALD Administration Protocol Lorazepam 1 mg 05/06/22 16:34 05/28/22 10:57 Lorazepam 1 Mg Iv Inj IV 06/04/22 16:33 1 mg Q6H PRN Administration nausea/vomiting Melatonin 6 mg 05/05/22 21:04 05/27/22 19:58 Melatonin 3 Mg Tab PO 06/04/22 21:03 6 mg HS PRN Administration Sleep Methocarbamol 750 mg 05/05/22 09:43 05/27/22 20:35 Methocarbamol 750 Mg Tablet PO 06/04/22 09:42 750 mg Q8H PRN Administration MUSCLE SPASMS Miscellaneous 1 each 05/18/22 11:59 05/27/22 09:03 Fentanyl Patch Remove & Waste N/A 06/17/22 11:58 1 each Q3D@0859 EMERALD Administration Miscellaneous 1 each 05/18/22 16:00 05/28/22 15:44 Check Fentanyl Patch Placement N/A 06/17/22 15:59 1 each QS EMERALD Administration Oxycodone HCl 20 mg 05/27/22 11:00 05/28/22 15:34 Oxycodone Intensol 20 Mg/1 Ml Udp PO 06/10/22 10:59 20 mg Q2H EMERALD Administration Pantoprazole Sodium 40 mg 05/05/22 09:43 05/28/22 08:36 Pantoprazole 40 Mg Tab PO 06/04/22 09:42 40 mg QAM EMERALD Administration Polyethylene Glycol 17 gm 05/23/22 09:00 05/28/22 08:33 Polyethylene (Miralax) 17 Gm Pack PO 06/22/22 08:59 17 gm DAILY EMERALD Administration Past Medical History Medical History Asthma Chronic migraine Colitis Diversion colitis Elevated lipase Endometriosis has had 3 surgeries for this. Last surgery [address] Hemorrhagic cystitis Hypotension Intussusception Pancreatitis PICC (peripherally inserted central catheter) in place TPN SMAS (superior mesenteric artery syndrome) History of SMAS Sphincter of Oddi dysfunction DECREASED GI MOTILITY Transaminitis Uses feeding tube gastroparesis and decreased GI motility can not tolerate feeding and uses TPN UTI (urinary tract infection) Exercise / Class Metabolic Activity II 4-5 Yardwork/Stairs/Walk up hill Past Family History Family History Father Hyperlipidemia Other No significant family history Past Surgical History Surgical History H/O adenoidectomy H/O laparoscopy H/O lumpectomy right breast 2011 History of appendectomy History of bowel resection Part of duodenum removed due to necrosis; done at [facility] 2019 History of hysterectomy 09/27/19 History of removal of Port-a-Cath 10/13/[address] Geiger, [facility], due to bacteremia/sepsis. History of vascular access device 2018 Hx of colonoscopy during procedure perforated small bowel 10/27/2019 at [facility], subsequent repair of duodenal area. Hx of ileostomy Hx of tonsillectomy S/P cholecystectomy 2015 S/P wrist surgery right Past Anesthesia History No Hx of Anesthesia Complications and No Family Hx of Anesthesia Complications History of PONV No Hx of PONV and No Hx of Motion Sickness Social History Smoking Status: Never smoker Hx Alcohol Use: No Hx Substance Use: No substance use type: does not use Physical Exam Vital Signs Last Vital Signs Temp 36.9 C 05/28/22 10:48 Pulse 100 H 05/28/22 15:08 Resp 12 05/28/22 14:09 BP 115/76 05/28/22 14:09 Pulse Ox 98 05/28/22 14:09 O2 Del Method 05/28/22 14:09 O2 Flow Rate 1 05/19/22 12:08 Testing Laboratory Results 05/28/22 09:29 05/28/22 09:29 Urine Color Yellow 05/05/22 06:10 Urine Appearance Clear (Clear) 05/05/22 06:10 Urine pH 7.0 (4.5-7.5) 05/05/22 06:10 Ur Specific [place] 1.006 (1.000-1.030) 05/05/22 06:10 Urine Protein Negative (Negative) 05/05/22 06:10 Urine Glucose (UA) Negative (Negative) 05/05/22 06:10 Urine Ketones Negative (Negative) 05/05/22 06:10 Urine Nitrite Negative (Negative) 05/05/22 06:10 Ur Leukocyte Esterase Negative (Negative) 05/05/22 06:10 05/14/22 Unknown Gram Stain - Final Abdomen Wound Culture - Final Enterobacter cloacae 05/28/22 05/28/22 11:18 05:41 POC Glucose 94 96 Electrocardiogram Date: 05/05/22 Findings: + NSST changes and + ST @ (@ 130) Chest X-Ray Date: 05/05/22 Findings: + NAD Echocardiogram Date: 04/10/22 EF: 55% LV Function: normal RWMA: + none Valvular Disease: + no significant valvular disease mild TR
[2022-05-28] MEDS: METHOCARBAMOL 750 MG TABLET PO PRN (20:01)
[2022-05-28] MEDS: MELATONIN 3 MG TAB PO PRN (20:01)
[2022-05-28] MEDS ORDERED: HYDROmorphone INJ 0.5 MG/0.5 ML SYR IV STA (20:15)
[2022-05-29] MEDS: HYDROmorphone INJ 0.5 MG/0.5 ML SYR IV PRN ×10 (00:28→22:37)
[2022-05-29] MEDS: CHECK fentaNYL PATCH PLACEMENT SCH ×3 (00:44→15:56)
[2022-05-29] MEDS: oxyCODONE INTENSOL 20 MG/1 ML UDP PO SCH ×12 (01:31→23:56)
[2022-05-29] MEDS: LORazepam 1 mg IV INJ IV PRN ×3 (02:26→23:55)
[2022-05-29] MEDS: METHOCARBAMOL 750 MG TABLET PO PRN ×2 (05:33→21:39)
[2022-05-29] MEDS: DICYCLOMINE HCL 10 MG CAP PO PRN ×2 (05:33→21:38)
--- NOTE | 2022-05-29 06:59 | Hospitalist Progress Note ---
Date of Service May 29, 2022 Assessment & Plan (1) Seizure-like activity: Plan: 32yo female a complex PMH including gastroparesis, SMA syndrome, ileostomy placement, G-tube placement (on TPN), and adrenal insufficiency presents after multiple episodes of seizure-like activity at home, as well as with intractable abdominal pain and nausea. Chronic generalized abdominal pain, extensive GI history -Patient with very extensive GI history including gastroparesis and multiple abdominal surgeries -Possible intestinal transplant at [facility] -Lactate elevated on admission, but repeat value (05/05) not elevated -Gentle IVF, electrolyte repletion -Continue bentyl, duloxetine, pepcid, protonix, gabapentin. Continue zofran and ativan staggered for nausea -05/06: CT a/p: mild stranding adjacent to the distal stomach with trace per igastric and perihepatic fluid, possibly postsurgical though gastritis/peptic ulcer disease is within the differential; no pneumoperitoneum; no intussusception; no bowel obstruction; status post subtotal colectomy with right lower quadrant ileostomy -05/07: CT a/p w/IV and oral contrast via G tube: mild improvement in wall thickening and adjacent fat stranding at the distal stomach -Pain regime stopped FERRYBOAT OPERATOR ordered liquid oxycodone 20mg q2h scheduled ordered dilaudid 0.5mg q2h PRN for pain -Consulted pain management for potential alternative treatments =no alternative recommendations at this time. -Triggers for patient's pain mostly isolated to moving G-J tube or ostomy site. May likely be caused by adhesional traction of stoma. Will need to discuss with patient's surgeon at [facility] if willing to see her for this, if not may engage local surgeon for opinion on the matter. However will treat potential soft tissue stoma infection first. -Increased her fentanyl patch from 50 mg to 75mcg on 05/19/22 with the hope of tapering her off of FERRYBOAT OPERATOR pump. Continue to monitor decreased fentanyl to 50mcg on 05/28. Will consider also adding a long acting oxycodone. -currently accepted for transfer to [facility] for stoma revision to reduce pain [facility] transfer number [phone] [facility] surgeon number [phone] TPN Catheter Occlusion -occurred 05/23 evening, likely lipid occlusion -TPN and lipid emulsion on hold - switched to PPN at this time without lipids -Ordered midline placement to run nutrition PPN in the mean time. unable to place midline due to narrow veins -port not alcohol compatible for treating lipid occlusion. -fluoroscopy for a port check unable to be performed since not able to push contrast through it -surgery consulted, port replaced 05/29 -will resume TPN with lipids tomorrow Stoma infection: -Had pseudomonas bacteremia in September of 2019 sec to stoma infection -05/11 w/ bleeding at stoma and development of some swelling around stoma. -05/12 development of erythema and discharge at stoma. -Wound culture with Enterococcus -Was treated with Keflex, then Doxycycline, then Cefdinir with some improvement -Discharge not much changed, still with episodes of moderate discharge. Iron deficient anemia, chronic -Ferritin at 3.5 indicating severe iron deficient anemia -Discussed modalities of iron supplementation and at this time most likely would be Rylee followed by iron dextran -She would like to discuss this with her manipulative therapy specialist, yet to hear back -Hemoglobin at 7.6 today, consider transfusion if below 7 with symptoms -Continue to monitor with daily CBC. Seizure-like activity -Patient with multiple episodes of seizure-like activity which seem to be triggered by severe pain -Patient was diagnosed with PNES recently at [facility]; however, suspect symptoms moreso represent vagal activity precipitated by pain -Optimize pain control (as above) -Continue seizure and fall precautions -Recommend following up with PNES clinic at [facility] - Given that her seizure-like activity resolves with and without narcotic usage, may be reasonable to consider non-narcotic options to manage her seizure like symptoms Severe protein-calorie malnutrition -Secondary to extensive GI pathology -05/06: restarting TPN -05/23: port malfunction, TPN stopped, switched to PPN -Plan to slowly introduce tube feeds pending clinical improvement Adrenal insufficiency -Chronic; hemodynamically stable -Continue hydrocortisone, fludrocortisone Covid - Resolved -Patient tested positive on 04/18/2022 (at [facility]), repeat PCR on admission still positive -Records from [facility] sent over. Isolation precautions removed. FEN: NPO other than crackers/sips, PPN per pharmacy, LR @ 80mL/hr + KCl 20Meq Code status: full code DVT ppx: SCDs Dispo: PCU. Dispo for home will depend upon adequate pain control as this is most likely the source of her seizure-like activity and syncopal episodes. Currently pending transfer to [facility], accepted transfer awaiting bed (2) Syncope: (3) Abdominal pain, chronic, generalized: (4) Adrenal insufficiency: (5) Chronic malnutrition: (6) Gastroparesis: (7) Gastrostomy tube in place: (8) Intestinal motility disorder: (9) Nausea and vomiting: (10) On total parenteral nutrition (TPN): (11) Severe protein-calorie malnutrition: (12) Iron deficiency anemia: Admission and Anticipated Discharge Date Admission Date: May 05, 2022 Supervising Physician Co-Signing Physician Notes Resident Physician Supervision Note: I independently interviewed and examined the patient and verified the solorzano history and physical, reviewed labs and image studies and agree with resident findings and care plan. Subjective Patient seen at bedside, night went ok. Patient and mom happy that her port will be fixed today. No acute concerns. States after 25mcg Fentanyl patch removed no worsening of pain noted. Review of Systems Review of Systems: All systems reviewed & are unremarkable except as noted in HPI & below Physical Exam Constitutional: + thin and cooperative Eyes: PERRL, conjunctivae normal, anicteric sclerae ENMT: external ear and nose normal, oropharynx normal Neck: trachea midline, no thyromegaly Respiratory: normal respiratory effort, lungs clear to auscultation Cardiovascular: RRR, no murmur, no edema Chest (Breasts): Chest: normal inspection of chest Gastrointestinal (Abdomen): Inspection/Auscultation: + abdominal surgical scar (with colostomy bag); abdomen not distended Percussion/Palpation: + abdomen tender (around ostomy site) and + guarding Skin: no rashes, warm and dry Results & Data Results & Data ([facility]) Vital Signs (Past 12 Hours) Vital Signs Temp Pulse Pulse Resp BP Pulse Ox O2 Del Method 05/29/22 03:32 36.8 C 94 H 18 99/67 L 96 Room Air 05/29/22 00:50 105 H 05/28/22 20:15 125 H 16 111/77 98 Room Air 05/28/22 22:39 36.9 C 107 H 18 121/85 98 Room Air 05/28/22 19:17 36.7 C 118 H 18 112/74 98 Room Air Resident Activity Tracking Resident Involvement: Resident Care Provided Care Provided: Adult [facility] Medicine
[2022-05-29 07:00] LABS: Hematocrit (blood only) 24.7 % (34.1-44.9); Hemoglobin 7.6 g/dl (12.0-16.0); Mean Corpuscular Hemoglobin 26.9 pg (25.0-34.0); Mean Corpuscular Hgb Conc 30.8 g/dL (32.0-36.0); Mean Corpuscular Volume 87.3 fL (80.0-100.0); Mean Platelet Volume 10.7 fL (9.4-12.3); Platelet Count 352 K/uL (130-400); RDW Coefficient of Variation 13.6 % (11.5-14.5); RDW Standard Deviation 43.4 fL (36.4-46.3); Red Blood Count 2.83 M/uL (3.93-5.22); White Blood Count 7.87 K/ul (4.8-10.8)
[2022-05-29] MEDS ORDERED: fentaNYL citrate 100 MCG/2 ML VIAL ONE (07:28)
[2022-05-29] MEDS ORDERED: PROPOFOL IV EMULSION 10 MG/ML 20 ML VIAL IV ONE (07:28)
[2022-05-29] MEDS ORDERED: MIDAZOLAM HCL 1 MG/ML 2ML VIAL ONE (07:28)
[2022-05-29] MEDS ORDERED: LIDOCAINE 2% MPF LOCAL 5 ML VIAL INFIL ONE (07:33)
[2022-05-29] MEDS: FAMOTIDINE 20 MG TAB PO SCH ×2 (08:28→19:59)
[2022-05-29] MEDS: DULoxetine HCL 60 MG CAP PO SCH (08:28)
[2022-05-29] MEDS: FLUDROCORTISONE ACETATE 0.1 MG TAB PO SCH ×2 (08:28→20:00)
[2022-05-29] MEDS: PANTOprazole 40 MG TAB PO SCH (08:28)
[2022-05-29] MEDS: HYDROCORTISONE 10 MG TAB PO SCH ×2 (08:28→14:38)
[2022-05-29] MEDS: GABAPENTIN 250 MG/5 ML 470 ML BTL PO SCH ×3 (08:34→20:01)
[2022-05-29 08:47] LABS: BUN Creatinine Ratio 12.9 (10-20); Calcium 8.4 mg/dl (8.5-10.1); Creatinine Clr Calc Pharmacy 109.6 ml/min; Est GFR (African American) 134.8 ml/min; Est GFR (Non-African American) 116.3 ml/min; Potassium 3.5 mmol/L (3.5-5.1)
[2022-05-29] MEDS ORDERED: EPINEPHrine INJ 1 MG/ML AMP ONE (09:34)
[2022-05-29] MEDS ORDERED: LIDOCAINE 1% LOCAL 20 ML VIAL ONE (09:34)
[2022-05-29] MEDS ORDERED: ONDANSETRON INJ 2 MG/ML 2 ML VIAL IV PRN (09:36)
[2022-05-29] MEDS ORDERED: fentaNYL citrate 100 MCG/2 ML VIAL IV PRN (09:36)
[2022-05-29] MEDS ORDERED: ATROPINE SULFATE 0.1 MG/ML 10ML SYR IV PRN (09:36)
[2022-05-29] MEDS ORDERED: ePHEDrine sulfate 50 MG/ML AMP IV PRN (09:36)
--- NOTE | 2022-05-29 09:39 | History & Physical Bridge Note ---
Date of Service May 29, 2022 History & Physical Bridge Note I have examined the patient, reviewed the History & Physical and in the interval since the performance of the History & Physical I have noted the following changes of clinical significance: no changes noted
[2022-05-29] MEDS ORDERED: ceFAZolin 2,000 MG/15 ML IV PUSH IV ONE (09:51)
[2022-05-29] MEDS ORDERED: ceFAZolin 2000MG 2,000 MG/15 ML SYR IV ONE (09:55)
[2022-05-29] MEDS ORDERED: KETAMINE 50 MG/5 ML SYRINGE ONE (10:00)
[2022-05-29] MEDS ORDERED: HEPARIN 100 UNIT/ML 5ML FLUSH FLUSH ONE (10:32)
[2022-05-29] MEDS ORDERED: OPTIRAY 300 IV ONE (10:34)
[2022-05-29] MEDS ORDERED: HEPARIN (PORCINE) 1000 UNIT/ML 10 ML (CATH LAB USE ONLY) ONE (10:42)
--- NOTE | 2022-05-29 10:52 | Post Operative Brief Note ---
Immediate Post Op Note v1 Date of Surgery May 29, 2022 Pre & Post Diagnosis Operation Date: 05/29/22 10:00 Pre-Op Diagnosis: Malfunctioning Infusaport Right Internal Jugular Vein Post-Op Diagnosis: Malfunctioning Infusaport Right Internal Jugular Vein I identified the patient and participated in the time-out.: Yes Procedure Operation Date: 05/29/22 10:00 Actual Procedures p Replacement of Infusaport Right Internal Jugular Vein(Right) - Leo Rodgers MD Surgeon Leo Rodgers MD Frame Operator GARRICK Harris assisted with tissue retraction, camera op, closure Estimated Blood Loss 5 Findings Consistent with Post-Op Diagnosis
--- NOTE | 2022-05-29 10:57 | Operative Report ---
Post Operative Report Pre & Post Diagnosis Operation Date: 05/29/22 10:00 Pre-Op Diagnosis: Malfunctioning Infusaport Right Internal Jugular Vein Post-Op Diagnosis: Malfunctioning Infusaport Right Internal Jugular Vein I identified the patient and participated in the time-out.: Yes Procedure Operation Date: 05/29/22 10:00 Actual Procedures p Replacement of Infusaport Right Internal Jugular Vein(Right) - Leo Rodgers MD Surgeon Leo Rodgers MD English As A Second Language Instructor GARRICK Harris assisted with tissue retraction, camera op, closure Estimated Blood Loss 5 Findings Consistent with Post-Op Diagnosis Specimens None Drains None Anesthesia Type MAC Complications No immediate complications Description of Procedure Patient taken to the operating room, placed supine on the operating table. A timeout was performed, perioperative antibiotics were administered, SCD boots were placed. After adequate anesthesia and analgesia was obtained, the area was prepped and draped in the normal sterile fashion. Local anesthetic was injected into and around the area of the existing port as well as the counterincision in the neck. The port pocket on the chest wall was opened with a 15 blade scalpel. The port was dissected free circumferentially and removed. With the port out of the incision still attached to the catheter, attempted to withdraw and flush the port with heparinized saline. Although it flushed, it was unable to be withdrawn. The port was removed from the catheter, and again we attempted to flush and withdraw through the catheter directly. Is unable to withdraw blood from the catheter, flushing was sometimes successful sometimes not. Attention was turned to the neck. A counterincision was made up where the catheter entered the IJ. The catheter was identified, grasped, and brought through the tunnel to the chest wall, keeping the proximal end of the catheter within the IJ. A wire was placed down through the catheter and the catheter was removed. This was done under fluoroscopic guidance. A dilator and introducer were placed over the wire, and the wire and dilator were removed. A new catheter which was flushed with heparinized saline was then threaded down through the introducer, and the introducer was removed. This was all done under intraoperative fluoroscopic guidance. The distal end of the catheter was then secured to a tunneler, and a new tunnel was created out to the pocket on the chest wall. The catheter was cut to size and secured to a new port. The port was flushed with heparinized saline, and was flushed and withdrew blood easily. Contrast study was done and the contrast flowed easily through the port into the catheter and down into the superior vena cava. Fluoroscopic imaging was taken. The port was then once again flushed with heparinized saline. The port was sewn into the pocket with 2-0 Prolene suture. Hemostasis was excellent. The incision in the port site was closed with 3-0 Vicryl subcu cutaneous sutures and a 4-0 Monocryl running subcuticular stitch. The counterincision was closed with a 4-0 Monocryl subcuticular suture. Dermabond was applied. She tolerated the procedure without complication, was transferred in stable condition to the PACU. All instrument, needle, and sponge counts were correct at the end of the case. My biology research assistant was necessary throughout the procedure for tissue retraction, possible camera operation, and closure of the wounds. I understand that section 1842(b)(7)(D) of the Social Security act generally prohibits Medicare physician fee schedule payment for the services of assistants at surgery in teaching hospitals when qualified residents are available to furnish such services. I certify that the services for which payment is claimed were medically necessary and that no qualified resident was available to perform the services. I further understand that these services are subject to postpayment review by the Medicare carrier. I attest to the content of the Intraoperative Record and any orders documented therein. Any exceptions are noted below.
[2022-05-29] MEDS ORDERED: ceFAZolin 330 MG/ML 1 GM VIAL ONE ×2 (11:46→11:48)
--- NOTE | 2022-05-29 11:46 | XRay Report ---
XR chest 1V portable HISTORY: post op placement a port COMPARISON: Chest 05/05/2022. FINDINGS: There is again noted a right jugular Port-A-Cath with the tip terminating in the expected l ocation of the SVC. This is unchanged in position. No pneumothorax. No pleural fusions. The cardiac s ilhouette is top normal in size. Prior cholecystectomy. Mild scoliosis again noted. IMPRESSION: 1. The right jugular Port-A-Cath terminates at the SVC. 2. No pneumothorax. ACT 112: Negative or not required by law. Electronically signed by: Victor Hugo Snowden M.D. 05/29/2022 11:44 AM
--- NOTE | 2022-05-29 12:35 | Anesthesiology Progress Note ---
Date of Service May 29, 2022 Anesthesia Post Procedure Vital Signs Vital Signs: Temp Pulse Pulse Pulse Resp BP BP 05/29/22 12:30 98.4 F 103 H 16 113/77 05/29/22 12:00 96 H 16 106/73 05/29/22 11:20 88 16 105/70 05/29/22 11:50 92 H 14 101/70 05/29/22 11:40 98.2 F 97 H 12 106/74 05/29/22 11:30 88 12 115/69 05/29/22 11:10 87 14 106/71 05/29/22 11:06 97.2 F L 100 H 12 107/69 05/29/22 09:17 98.6 F 108 H 20 117/83 05/29/22 08:28 98.4 F 96 H 17 99/67 L 05/29/22 07:55 88 05/29/22 03:32 98.2 F 94 H 18 99/67 L 05/29/22 00:50 105 H 05/28/22 20:15 125 H 16 111/77 05/28/22 22:39 98.4 F 107 H 18 121/85 05/28/22 19:17 98.1 F 118 H 18 112/74 05/28/22 16:07 98.2 F 98 H 18 119/81 05/28/22 15:08 100 H 05/28/22 17:09 108 H 16 130/81 05/28/22 14:09 111 H 12 115/76 Pulse Ox O2 Del Method O2 Flow Rate 05/29/22 12:30 92 Room Air 05/29/22 12:00 93 Room Air 05/29/22 11:20 100 Oxymask 2 05/29/22 11:50 93 Room Air 05/29/22 11:40 95 Room Air 05/29/22 11:30 97 Oxymask 2 05/29/22 11:10 100 Oxymask 3 05/29/22 11:06 100 Oxymask 6 05/29/22 09:17 97 Room Air 05/29/22 08:28 98 Room Air 05/29/22 07:55 05/29/22 03:32 96 Room Air 05/29/22 00:50 05/28/22 20:15 98 Room Air 05/28/22 22:39 98 Room Air 05/28/22 19:17 98 Room Air 05/28/22 16:07 98 Room Air 05/28/22 15:08 05/28/22 17:09 97 Room Air 05/28/22 14:09 98 Room Air Pain Intensity Abdomen: Pain Intensity: 7 Transfer of Care Handoff Completed per policy Notes Mental Status: alert / awake / arousable and participated in evaluation Patient Amnestic to Procedure: Yes Nausea / Vomiting: adequately controlled Pain: adequately controlled Airway Patency, RR, SpO2: stable & adequate BP & HR: stable & adequate Hydration State: stable & adequate Anesthetic Complications: no major complications apparent and Pt Satisfied with anesthetic care
[2022-05-29] MEDS: POLYETHYLENE (MIRALAX) 17 GM PACK PO SCH (14:38)
[2022-05-29] MEDS ORDERED: AMINO ACIDS 4.25% IV SCH (16:00)
[2022-05-29] MEDS ORDERED: PERIPHERAL TPN IV SCH (16:00)
[2022-05-29] MEDS ORDERED: D5W IV SCH (16:00)
[2022-05-29] MEDS: SODIUM CHLORIDE 0.9% 1000ML 1,000 ML IV SCH (16:06)
[2022-05-29] MEDS: HYOSCYAMINE SULFATE 0.125 MG TAB SL PRN (21:38)
[2022-05-29] MEDS: MELATONIN 3 MG TAB PO PRN (21:41)
[2022-05-30] MEDS: CHECK fentaNYL PATCH PLACEMENT SCH ×3 (00:01→16:32)
[2022-05-30] MEDS: HYDROmorphone INJ 0.5 MG/0.5 ML SYR IV PRN ×9 (01:22→22:55)
[2022-05-30] MEDS: oxyCODONE INTENSOL 20 MG/1 ML UDP PO SCH ×12 (01:30→23:47)
[2022-05-30] MEDS: DICYCLOMINE HCL 10 MG CAP PO PRN ×4 (04:37→22:58)
--- NOTE | 2022-05-30 06:54 | Hospitalist Progress Note ---
Date of Service May 30, 2022 Assessment & Plan (1) Seizure-like activity: Plan: 32yo female a complex PMH including gastroparesis, SMA syndrome, ileostomy placement, G-tube placement (on TPN), and adrenal insufficiency presents after multiple episodes of seizure-like activity at home, as well as with intractable abdominal pain and nausea. Chronic generalized abdominal pain, extensive GI history -Patient with very extensive GI history including gastroparesis and multiple abdominal surgeries -Possible intestinal transplant at [facility] -Lactate elevated on admission, but repeat value (05/05) not elevated -Gentle IVF, electrolyte repletion -Continue bentyl, duloxetine, pepcid, protonix, gabapentin. Continue zofran and ativan staggered for nausea -05/06: CT a/p: mild stranding adjacent to the distal stomach with trace per igastric and perihepatic fluid, possibly postsurgical though gastritis/peptic ulcer disease is within the differential; no pneumoperitoneum; no intussusception; no bowel obstruction; status post subtotal colectomy with right lower quadrant ileostomy -05/07: CT a/p w/IV and oral contrast via G tube: mild improvement in wall thickening and adjacent fat stranding at the distal stomach -Pain regime stopped COMBINATION SAW OPERATOR ordered liquid oxycodone 20mg q2h scheduled ordered dilaudid 0.5mg q2h PRN for pain -Consulted pain management for potential alternative treatments =no alternative recommendations at this time. -Triggers for patient's pain mostly isolated to moving G-J tube or ostomy site. May likely be caused by adhesional traction of stoma. Contacted patient's surgeon at [facility] -Increased her fentanyl patch from 50 mg to 75mcg on 05/19/22 decreased fentanyl to 50mcg on 05/28. Will consider also adding a long acting oxycodone. -currently accepted for transfer to [place] for stoma revision to reduce pain [facility] transfer number [phone] [facility] surgeon number [phone] TPN Catheter Occlusion -occurred 05/23 evening, likely lipid occlusion -TPN and lipid emulsion on hold - switched to PPN at this time without lipids -Ordered midline placement to run nutrition PPN in the mean time. unable to place midline due to narrow veins -port not alcohol compatible for treating lipid occlusion. -fluoroscopy for a port check unable to be performed since not able to push contrast through it -surgery consulted, port replaced 05/29 -resumed TPN Stoma infection: -Had pseudomonas bacteremia in September of 2019 sec to stoma infection -05/11 w/ bleeding at stoma and development of some swelling around stoma. -05/12 development of erythema and discharge at stoma. -Wound culture with Enterococcus -Was treated with Keflex, then Doxycycline, then Cefdinir with some improvement -stoma discharge not much changed, still with episodes of moderate discharge. Iron deficient anemia, chronic -Ferritin at 3.5 indicating severe iron deficient anemia -Discussed modalities of iron supplementation and at this time most likely would be Rylee followed by iron dextran -She would like to discuss this with her turfgrass technician, yet to hear back -Hemoglobin at 7.6 today, consider transfusion if below 7 with symptoms -Continue to monitor CBC. Seizure-like activity -Patient with multiple episodes of seizure-like activity which seem to be triggered by severe pain -Patient was diagnosed with PNES recently at [facility]; however, suspect symptoms moreso represent vagal activity precipitated by pain -Optimize pain control (as above) -Continue seizure and fall precautions -Recommend following up with PNES clinic at [facility] - Given that her seizure-like activity resolves with and without narcotic usage, may be reasonable to consider non-narcotic options to manage her seizure like symptoms Severe protein-calorie malnutrition -Secondary to extensive GI pathology -05/06: restarting TPN -05/23: port malfunction, TPN stopped, switched to PPN -Plan to slowly introduce tube feeds pending clinical improvement Adrenal insufficiency -Chronic; hemodynamically stable -Continue hydrocortisone, fludrocortisone Covid - Resolved -Patient tested positive on 04/18/2022 (at [facility]), repeat PCR on admission still positive -Records from [facility] sent over. Isolation precautions removed. FEN: NPO other than crackers/sips, PPN per pharmacy, LR @ 80mL/hr + KCl 20Meq Code status: full code DVT ppx: SCDs Dispo: PCU. Dispo for home will depend upon adequate pain control as this is most likely the source of her seizure-like activity and syncopal episodes. Currently pending transfer to [facility], accepted transfer awaiting bed (2) Syncope: (3) Abdominal pain, chronic, generalized: (4) Adrenal insufficiency: (5) Chronic malnutrition: (6) Gastroparesis: (7) Gastrostomy tube in place: (8) Intestinal motility disorder: (9) Nausea and vomiting: (10) On total parenteral nutrition (TPN): (11) Severe protein-calorie malnutrition: (12) Iron deficiency anemia: Admission and Anticipated Discharge Date Admission Date: May 05, 2022 Supervising Physician Co-Signing Physician Notes Resident Physician Supervision Note: I independently interviewed and examined the patient and verified the solorzano history and physical, reviewed labs and image studies and agree with resident findings and care plan. Subjective Patient seen at bedside. She is glad her port was replaced, states it is working normally, understands at this time we are still awaiting to hear back from [place] regarding a bed. No acute concerns at this time. Review of Systems Review of Systems: All systems reviewed & are unremarkable except as noted in HPI & below Physical Exam Constitutional: + thin and cooperative Eyes: PERRL, conjunctivae normal, anicteric sclerae ENMT: external ear and nose normal, oropharynx normal Neck: trachea midline, no thyromegaly Respiratory: normal respiratory effort, lungs clear to auscultation Cardiovascular: RRR, no murmur, no edema Chest (Breasts): Chest: normal inspection of chest Gastrointestinal (Abdomen): Inspection/Auscultation: + abdominal surgical scar (with colostomy bag); abdomen not distended Percussion/Palpation: + abdomen tender (around ostomy site) and + guarding Skin: no rashes, warm and dry Results & Data Results & Data ([facility]) Vital Signs (Past 12 Hours) Vital Signs Temp Pulse Pulse Resp BP Pulse Ox O2 Del Method 05/30/22 04:43 36.8 C 92 H 16 100/69 97 Room Air 05/30/22 00:52 112 H 05/30/22 00:08 36.6 C 112 H 18 90/55 L 96 Room Air 05/29/22 20:52 37.3 C 106 H 16 110/75 96 Room Air Resident Activity Tracking Resident Involvement: Resident Care Provided Care Provided: Adult Hospital Medicine
[2022-05-30] MEDS: FLUDROCORTISONE ACETATE 0.1 MG TAB PO SCH ×2 (08:48→21:14)
[2022-05-30] MEDS: FAMOTIDINE 20 MG TAB PO SCH ×2 (08:48→21:14)
[2022-05-30] MEDS: PANTOprazole 40 MG TAB PO SCH (08:49)
[2022-05-30] MEDS: DULoxetine HCL 60 MG CAP PO SCH (08:49)
[2022-05-30] MEDS: HYDROCORTISONE 10 MG TAB PO SCH ×2 (08:49→14:24)
[2022-05-30] MEDS: fentaNYL 50 MCG/HR TDSY TD SCH (08:50)
[2022-05-30] MEDS: POLYETHYLENE (MIRALAX) 17 GM PACK PO SCH (08:53)
[2022-05-30] MEDS: GABAPENTIN 250 MG/5 ML 470 ML BTL PO SCH ×3 (08:53→21:16)
--- NOTE | 2022-05-30 09:51 | Surgery Progress Note ---
Date of Service May 30, 2022 Assessment & Plan (1) Encounter for care related to vascular access port: Plan: POD # 1 s/p replacement of Right internal jugular venous access port -afebrile - minimal pain Plan: Okay to resume TPN via Port, should have regular hep saline flushes Should avoid blood draws on regular bases through ports continue medical management Dr. Rodgers has seen and examined pt, agrees with above. Admission and Anticipated Discharge Date Admission Date: May 05, 2022 Subjective feeling okay no pain or swelling at port site no fevers Physical Exam Constitutional: WD/WN, vitals as above no acute distress and not ill appearing Respiratory: normal respiratory effort; no respiratory distress and no labored breathing Chest (Breasts): Additional Comments: Port site with dermabond in place, no surrounding erythema or edema Psychiatric: Orientation: alert and oriented x 3 Results & Data ([facility]) Vital Signs (Past 12 Hours) Vital Signs Temp Pulse Pulse Resp BP Pulse Ox O2 Del Method 05/30/22 07:56 36.8 C 100 H 15 100/65 96 Room Air 05/30/22 04:43 36.8 C 92 H 16 100/69 97 Room Air 05/30/22 00:52 112 H 05/30/22 00:08 36.6 C 112 H 18 90/55 L 96 Room Air
[2022-05-30 09:59] LABS: Hematocrit (blood only) 24.2 % (34.1-44.9); Hemoglobin 7.6 g/dl (12.0-16.0); Mean Corpuscular Hemoglobin 27.2 pg (25.0-34.0); Mean Corpuscular Hgb Conc 31.4 g/dL (32.0-36.0); Mean Corpuscular Volume 86.7 fL (80.0-100.0); Mean Platelet Volume 10.7 fL (9.4-12.3); Platelet Count 344 K/uL (130-400); RDW Coefficient of Variation 13.9 % (11.5-14.5); RDW Standard Deviation 44.1 fL (36.4-46.3); Red Blood Count 2.79 M/uL (3.93-5.22); White Blood Count 6.87 K/ul (4.8-10.8)
[2022-05-30 10:36] LABS: Calcium 8.3 mg/dl (8.5-10.1); Creatinine Clr Calc Pharmacy 130.1 ml/min; Est GFR (African American) 142.5 ml/min; Phosphorus 3.6 mg/dl (2.5-4.9); Potassium 3.9 mmol/L (3.5-5.1)
[2022-05-30] MEDS: LORazepam 1 mg IV INJ IV PRN ×3 (11:04→23:47)
--- NOTE | 2022-05-30 14:49 | Pharmacy Report ---
PHA: Parenteral Nutrition Con - Date of Service May 30, 2022 - Scope Pharmacy was consulted to manage parenteral nutrition orders for this patient. - Subjective The patient is currently on day 25 of parenteral nutrition for poor dietary and enteral nutrition compliance related to hx of gastroparesis, intussusception, mult. abd. surgeries including a subtotal colectomy w/ileostomy placement - Objective Height: 5 ft 6 in Weight: 59.1 kg Diet: Clear Liquid Vascular Access:: Right internal jugular venous access port placed 05/29/22 Intake & Output (24hrs):: Intake & Output 05/28/22 05/29/22 05/30/22 05/31/22 06:59 06:59 06:59 06:59 Intake Total 2762.9 / 2762.9 2737.96 / 2737.96 920 / 920 Output Total 6395 / 6395 2900 / 2900 1655 / 1655 700 / 700 Balance -3632.1 / -3632.1 -162.04 / -162.04 -735 / -735 -700 / -700 Weight 59.3 kg 59.1 kg 59.1 kg Laboratory Data (Last 24 Hr):: 05/30/22 05/30/22 09:37 09:37 Sodium 142 Potassium 3.9 Chloride 108 H Carbon Dioxide 28 BUN 13 Creatinine 0.59 L Glucose 97 Calcium 8.3 L Phosphorus 3.6 Cancelled Magnesium 2.0 Cancelled Recent Pertinent Medications:: Dicyclomine PO Hyoscyamine SL Famotidine PO Fludrocortisone PO Hydrocortisone PO Miralax PO Fentanyl transdermal Hydromorphone IV Oxycodone IV Ondansetron IV Nutrition Assessment:: Please refer to the Notes section of the EMR for the most recent lap cutter note. - Assessment Will transition from PPN back to TPN this evening. Surgery has cleared use of port - see note. Transition back to cyclic TPN with lipids per hospitalist service. Will utilize SMOF lipids as provided previously with upward titration at beginning and downward titration at the end per patient special request. Dietary has provided recommendations for macronutrient needs - see note. Electrolytes have been stable and electrolyte content of PPN bags has fluctuated very little over the last several days. - Plan For day 25 of PN administration, the following will be ordered: Macronutrients Amino acids 80 grams/day Dextrose 140 grams/day Lipids 50 grams/day (SMOF lipids) Micronutrients Combined electrolytes 0 mL - contains 35 mEq Na, 20 meq K, 4.5 mEq Ca, 5 mEq Mg, 35 mEq Cl, 29.5 mEq acetate per 20 mL Sodium phosphate 0 MMol Sodium chloride 120 mEq Sodium acetate 0 mEq Potassium phosphate 12 mMol Potassium chloride 80 mEq Potassium acetate 30 mEq Magnesium sulfate 12.18 mEq Calcium gluconate 9.3 mEq Multivitamins 0 mL (patient intolerance per [facility] documentation) Trace Elements 0 mL Additional additives: Folic Acid 1mg, Thiamine 100mg Total volume 1131.2 mL from Clinimix + 250mL from SMOF lipids to be infused over 18 hrs will provide 1296 kcal/day Labs, as indicated, will be ordered per protocol Pharmacy will continue to follow and adjust parenteral nutrition orders on a daily basis. Thank you for allowing us to participate in the care of this patient.
[2022-05-30] MEDS: METHOCARBAMOL 750 MG TABLET PO PRN ×2 (15:55→23:48)
[2022-05-30] MEDS: ondansetron HCL 8 MG in DEXTROSE 5% 50 ML IV PRN (16:02)
[2022-05-30] MEDS: HEPARIN 100 UNIT/ML 5ML FLUSH FLUSH PRN (16:29)
[2022-05-30] MEDS: SODIUM CHLORIDE 0.9% 1000ML 1,000 ML IV SCH (16:33)
[2022-05-30] MEDS: AMINO ACID 8% IV SCH ×2 (21:11→22:02)
[2022-05-30] MEDS: CENTRAL TPN IV SCH ×2 (21:11→22:02)
[2022-05-30] MEDS: [UNRECOGNIZED DRUG - OTHER] IV SCH ×2 (21:11→22:02)
[2022-05-30] MEDS: MELATONIN 3 MG TAB PO PRN (23:54)
[2022-05-31] MEDS ORDERED: FAT EMUL/SOY/MCT/OLIV/FISH OIL 50 GM/250 ML BAG IV SCH
[2022-05-31] MEDS: CHECK fentaNYL PATCH PLACEMENT SCH ×3 (00:06→15:01)
[2022-05-31] MEDS: HYDROmorphone INJ 0.5 MG/0.5 ML SYR IV PRN ×11 (01:33→22:39)
[2022-05-31] MEDS: oxyCODONE INTENSOL 20 MG/1 ML UDP PO SCH ×11 (02:15→22:11)
[2022-05-31] MEDS: ondansetron HCL 8 MG in DEXTROSE 5% 50 ML IV PRN ×2 (02:20→11:22)
[2022-05-31 05:43] LABS: Calcium 8.3 mg/dl (8.5-10.1); Creatinine Clr Calc Pharmacy 139.5 ml/min; Est GFR (African American) 145.9 ml/min; Est GFR (Non-African American) 125.9 ml/min; Magnesium 1.9 mg/dl (1.7-2.4); Phosphorus 2.8 mg/dl (2.5-4.9); Potassium 3.9 mmol/L (3.5-5.1)
[2022-05-31] MEDS: DICYCLOMINE HCL 10 MG CAP PO PRN ×3 (06:09→21:04)
[2022-05-31] MEDS: LORazepam 1 mg IV INJ IV PRN ×2 (07:34→17:57)
--- NOTE | 2022-05-31 07:46 | Hospitalist Progress Note ---
Date of Service May 31, 2022 Assessment & Plan (1) Seizure-like activity: Plan: 32yo female a complex PMH including gastroparesis, SMA syndrome, ileostomy placement, G-tube placement (on TPN), and adrenal insufficiency presents after multiple episodes of seizure-like activity at home, as well as with intractable abdominal pain and nausea. Chronic generalized abdominal pain, extensive GI history -Patient with very extensive GI history including gastroparesis and multiple abdominal surgeries -Possible intestinal transplant at [facility] -Lactate elevated on admission, but repeat value (05/05) not elevated -Gentle IVF, electrolyte repletion -Continue bentyl, duloxetine, pepcid, protonix, gabapentin. Continue zofran and ativan staggered for nausea -05/06: CT a/p: mild stranding adjacent to the distal stomach with trace per igastric and perihepatic fluid, possibly postsurgical though gastritis/peptic ulcer disease is within the differential; no pneumoperitoneum; no intussusception; no bowel obstruction; status post subtotal colectomy with right lower quadrant ileostomy -05/07: CT a/p w/IV and oral contrast via G tube: mild improvement in wall thickening and adjacent fat stranding at the distal stomach -Pain regimen: stopped DIRECTOR FIXED INCOME ordered liquid oxycodone 20mg q2h scheduled ordered dilaudid 0.5mg q2h PRN for pain -Consulted pain management for potential alternative treatments -- no alternative recommendations at this time. -Triggers for patient's pain mostly isolated to moving G-J tube or ostomy site. May likely be caused by adhesional traction of stoma. Contacted patient's surgeon at [facility] -Currently accepted for transfer to [place] for stoma revision to reduce pain [place] transfer number [phone] [place] surgeon number [phone] -Increased her fentanyl patch from 50 mg to 75mcg on 05/19/22 decreased fentanyl to 50mcg on 05/28. Will consider also adding a long acting oxycodone. 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 -fluoroscopy for a port check unable to be performed since not able to push contrast through it -surgery consulted, port replaced 05/29 -resumed TPN - tolerating well. Stoma infection: -Had pseudomonas bacteremia in September of 2019 sec to stoma infection -05/11 w/ bleeding at stoma and development of some swelling around stoma. -05/12 development of erythema and discharge at stoma. -Wound culture with Enterococcus -Was treated with Keflex, then Doxycycline, then Cefdinir with some improvement -Stoma discharge not much changed, still with episodes of moderate discharge. Iron deficient anemia, chronic -Ferritin at 3.5 indicating severe iron deficient anemia -Discussed modalities of iron supplementation and at this time most likely would be Rylee followed by iron dextran -She would like to discuss this with her hybrid corn breeder, yet to hear back -Hemoglobin at 7.6 on 05/30, consider transfusion if below 7 with symptoms -Continue to monitor CBC. Seizure-like activity -Patient with multiple episodes of seizure-like activity which seem to be triggered by severe pain -Patient was evaluated in [facility] for these in March 2022 -- epilepsy was ruled out and suspected episodes were PNES vs vagal related to pain - Past episodes in March causing bradycardia and unresponsiveness but never presented with postictal periods - More recent episodes with similar movements and unresponsiveness but no vital sign changes - Vitals remaining completely stable during current episodes and still shows no postictal period following them -Optimize pain control (as above) -Continue seizure and fall precautions -Recommend following up with PNES clinic at [facility] Severe protein-calorie malnutrition -Secondary to extensive GI pathology -05/06: restarting TPN -05/23: port malfunction, TPN stopped, switched to PPN -05/29: Port replaced bu surgery -- TPN restarted, PPN stopped -Plan to slowly introduce tube feeds pending clinical improvement Adrenal insufficiency -Chronic; hemodynamically stable -Continue hydrocortisone, fludrocortisone Covid - Resolved -Patient tested positive on 04/18/2022 (at [facility]), repeat PCR on admission still positive -Records from [facility] sent over. Isolation precautions removed. FEN: NPO other than crackers/sips, TPN per pharmacy Code status: full code DVT ppx: SCDs Dispo: PCU. Currently pending transfer to [facility], accepted transfer awaiting bed (2) Syncope: (3) Abdominal pain, chronic, generalized: (4) Adrenal insufficiency: (5) Chronic malnutrition: (6) Gastroparesis: (7) Gastrostomy tube in place: (8) Intestinal motility disorder: (9) Nausea and vomiting: (10) On total parenteral nutrition (TPN): (11) Severe protein-calorie malnutrition: (12) Iron deficiency anemia: Admission and Anticipated Discharge Date Admission Date: May 05, 2022 Supervising Physician Co-Signing Physician Notes Resident Physician Supervision Note: I independently interviewed and examined the patient and verified the solorzano history and physical, reviewed labs and image studies and agree with resident findings and care plan. Subjective Patient seen at bedside. Currently in NAD but feels pain has become a little worse overnight. Also concerned that she is able to see her stoma protruding more than has been usual over the past few months and this seems to correlate with her painful moments. Otherwise stable. Review of Systems Review of Systems: All systems reviewed & are unremarkable except as noted in HPI & below Physical Exam Physical Exam: GENERAL: A&Ox3. NAD. CHEST/LUNGS: CTAB A/P. No crackles, wheezes, rales, ronchi. HEART: RRR. No m/g/r. No carotid bruits. ABDOMEN: Colostomy bag in place. Tender around ostomy site, ND. SKIN: Warm and dry. No rashes or lesions. PSYCHIATRIC: Euthymic affect, no SI, no pressured speech, no hallucinations Results & Data Results & Data ([facility]) Vital Signs (Past 12 Hours) Vital Signs Temp Pulse Pulse Resp BP Pulse Ox O2 Del Method 05/31/22 03:00 36.5 C 98 H 18 114/79 99 Room Air 05/30/22 23:32 101 H 05/30/22 23:25 36.8 C 114 H 16 109/69 98 Room Air Resident Activity Tracking Resident Involvement: Resident Care Provided Care Provided: Adult Hospital Medicine
[2022-05-31] MEDS: DULoxetine HCL 60 MG CAP PO SCH (09:08)
[2022-05-31] MEDS: HYOSCYAMINE SULFATE 0.125 MG TAB SL PRN (09:10)
[2022-05-31] MEDS: METHOCARBAMOL 750 MG TABLET PO PRN ×2 (09:10→21:05)
[2022-05-31] MEDS: HYDROCORTISONE 10 MG TAB PO SCH ×2 (09:10→13:02)
[2022-05-31] MEDS: FLUDROCORTISONE ACETATE 0.1 MG TAB PO SCH ×2 (09:11→21:03)
[2022-05-31] MEDS: FAMOTIDINE 20 MG TAB PO SCH ×2 (09:11→21:02)
[2022-05-31] MEDS: PANTOprazole 40 MG TAB PO SCH (09:11)
[2022-05-31] MEDS: POLYETHYLENE (MIRALAX) 17 GM PACK PO SCH (09:11)
[2022-05-31] MEDS: GABAPENTIN 250 MG/5 ML 470 ML BTL PO SCH ×3 (09:20→21:11)
[2022-05-31] MEDS: HEPARIN 100 UNIT/ML 5ML FLUSH FLUSH PRN (15:32)
[2022-05-31] MEDS ORDERED: HYDROmorphone INJ 0.5 MG/0.5 ML SYR IV STA (20:42)
[2022-05-31] MEDS ORDERED: CENTRAL TPN IV SCH (21:00)
[2022-05-31] MEDS ORDERED: AMINO ACID 8% IV SCH (21:00)
[2022-05-31] MEDS ORDERED: [UNRECOGNIZED DRUG - OTHER] IV SCH (21:00)
[2022-06-01] MEDS: MELATONIN 3 MG TAB PO PRN ×2 (00:01→22:54)
[2022-06-01] MEDS: LORazepam 1 mg IV INJ IV PRN ×4 (00:01→22:42)
[2022-06-01] MEDS: oxyCODONE INTENSOL 20 MG/1 ML UDP PO SCH ×13 (00:02→23:34)
[2022-06-01] MEDS: CHECK fentaNYL PATCH PLACEMENT SCH ×3 (00:15→15:01)
[2022-06-01] MEDS: HYDROmorphone INJ 0.5 MG/0.5 ML SYR IV PRN ×11 (00:40→22:43)
--- NOTE | 2022-06-01 02:20 | XRay Report ---
KUB HISTORY: Acute generalized abdominal pain increased abdominal pain with guarding COMPARISON: KUB May 21, 2022 FINDINGS: Cholecystectomy. Nonobstructive bowel gas pattern. Gastrojejunostomy tube again noted. Hype rdense material within the rectum redemonstrated. Right lower quadrant ostomy. No renal calculi. No ureteral calculi. No pneumoperitoneum or pneumatosis. No fracture. IMPRESSION: Nonobstructive bowel gas pattern. ACT 112: Negative or not required by law. The above report was generated using voice recognition software. It may contain grammatical, syntax o r spelling errors. Electronically signed by: Derrek Sow M.D. 06/01/2022 2:19 AM
[2022-06-01] MEDS: DICYCLOMINE HCL 10 MG CAP PO PRN ×3 (05:10→22:53)
[2022-06-01 06:04] LABS: BUN Creatinine Ratio 21.3 (10-20); Calcium 8.3 mg/dl (8.5-10.1); Creatinine Clr Calc Pharmacy 126.2 ml/min; Est GFR (Non-African American) 121.7 ml/min; Magnesium 1.9 mg/dl (1.7-2.4); Phosphorus 3.6 mg/dl (2.5-4.9); Potassium 3.8 mmol/L (3.5-5.1)
--- NOTE | 2022-06-01 07:06 | Hospitalist Progress Note ---
Date of Service June 01, 2022 Assessment & Plan (1) Seizure-like activity: Plan: 32yo female a complex PMH including gastroparesis, SMA syndrome, ileostomy placement, G-tube placement (on TPN), and adrenal insufficiency presents after multiple episodes of seizure-like activity at home, as well as with intractable abdominal pain and nausea. Chronic generalized abdominal pain, extensive GI history -Patient with very extensive GI history including gastroparesis and multiple abdominal surgeries -Possible intestinal transplant at [facility] -Lactate elevated on admission, but repeat value (05/05) not elevated -Gentle IVF, electrolyte repletion -Continue bentyl, duloxetine, pepcid, protonix, gabapentin. Continue zofran and ativan staggered for nausea -05/06: CT a/p: mild stranding adjacent to the distal stomach with trace per igastric and perihepatic fluid, possibly postsurgical though gastritis/peptic ulcer disease is within the differential; no pneumoperitoneum; no intussusception; no bowel obstruction; status post subtotal colectomy with right lower quadrant ileostomy -05/07: CT a/p w/IV and oral contrast via G tube: mild improvement in wall thickening and adjacent fat stranding at the distal stomach -Pain regimen: stopped CARE TAKER ordered liquid oxycodone 20mg q2h scheduled ordered Dilaudid 0.5mg q2h PRN for pain -- has required some spot doeses of Dilaudid 0.25mg in between at times -Consulted pain management for potential alternative treatments -- no alternative recommendations at this time. -Triggers for patient's pain mostly isolated to moving G-J tube or ostomy site. May likely be caused by adhesional traction of stoma. Contacted patient's surgeon at [facility] -Currently accepted for transfer to [place] for stoma revision to reduce pain [place] transfer number [phone] [place] surgeon number [phone] -Increased her fentanyl patch from 50 mg to 75mcg on 05/19/22 decreased fentanyl to 50mcg on 05/28. Will consider also adding a long acting oxycodone. 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 -fluoroscopy for a port check unable to be performed since not able to push contrast through it -surgery consulted, port replaced 05/29 -resumed TPN - tolerating well. Stoma infection: -Had pseudomonas bacteremia in September of 2019 sec to stoma infection -05/11 w/ bleeding at stoma and development of some swelling around stoma. -05/12 development of erythema and discharge at stoma. -Wound culture with Enterococcus -Was treated with Keflex, then Doxycycline, then Cefdinir with some improvement -Stoma discharge not much changed, still with episodes of moderate discharge. Iron deficient anemia, chronic -Ferritin at 3.5 indicating severe iron deficient anemia -Discussed modalities of iron supplementation and at this time most likely would be Rylee followed by iron dextran -She would like to discuss this with her inside sales assistant, yet to hear back -Hemoglobin at 7.6 on 05/30, consider transfusion if below 7 with symptoms -Continue to monitor CBC. Seizure-like activity -Patient with multiple episodes of seizure-like activity which seem to be triggered by severe pain -Patient was evaluated in [facility] for these in March 2022 -- epilepsy was ruled out and suspected episodes were PNES vs vagal related to pain - Past episodes in March causing bradycardia and unresponsiveness but never presented with postictal periods - More recent episodes with similar movements and unresponsiveness but no vital sign changes - Vitals remaining completely stable during current episodes and still shows no postictal period following them -Optimize pain control (as above) -Continue seizure and fall precautions -Recommend following up with PNES clinic at [facility] Severe protein-calorie malnutrition -Secondary to extensive GI pathology -05/06: restarting TPN -05/23: port malfunction, TPN stopped, switched to PPN -05/29: Port replaced bu surgery -- TPN restarted, PPN stopped -Plan to slowly introduce tube feeds pending clinical improvement Adrenal insufficiency -Chronic; hemodynamically stable -Continue hydrocortisone, fludrocortisone Covid - Resolved -Patient tested positive on 04/18/2022 (at [facility]), repeat PCR on admission still positive -Records from [facility] sent over. Isolation precautions removed. FEN: NPO other than crackers/sips, TPN per pharmacy Code status: full code DVT ppx: SCDs Dispo: PCU. Currently pending transfer to [facility], accepted transfer awaiting bed (2) Syncope: (3) Abdominal pain, chronic, generalized: (4) Adrenal insufficiency: (5) Chronic malnutrition: (6) Gastroparesis: (7) Gastrostomy tube in place: (8) Intestinal motility disorder: (9) Nausea and vomiting: (10) On total parenteral nutrition (TPN): (11) Severe protein-calorie malnutrition: (12) Iron deficiency anemia: Admission and Anticipated Discharge Date Admission Date: May 05, 2022 Supervising Physician Co-Signing Physician Notes Resident Physician Supervision Note: I independently interviewed and examined the patient and verified the solorzano history and physical, reviewed labs and image studies and agree with resident findings and care plan. Subjective Overnight she felt her pain was a bit worse. Describes the pain as feeling like her intussusception sliding in and out as it comes in waves. She is in agreement with continuing current pain regimen with spot doses in between if required, as she does want to minimize opioid use as much as able. No other issues/complaints. Breathing well, no grogginess. Review of Systems Review of Systems: All systems reviewed & are unremarkable except as noted in Subjective Physical Exam Physical Exam: GENERAL: A&Ox3. NAD. CHEST/LUNGS: CTAB A/P. No crackles, wheezes, rales, rhonchi. HEART: RRR. No m/g/r. ABDOMEN: Colostomy bag in place. Tender around ostomy site, ND. SKIN: Warm and dry. No rashes or lesions. PSYCHIATRIC: Euthymic affect, no SI, no pressured speech, no hallucinations Results & Data Results & Data ([facility]) Vital Signs (Past 12 Hours) Vital Signs Temp Pulse Pulse Resp BP Pulse Ox O2 Del Method 06/01/22 04:01 36.7 C 114 H 16 99/66 L 98 Room Air 05/31/22 22:16 105 H 05/31/22 23:00 36.8 C 114 H 18 120/76 97 Room Air 05/31/22 19:32 37.1 C 106 H 18 106/71 97 Room Air Resident Activity Tracking Resident Involvement: Resident Care Provided Care Provided: Adult Hospital Medicine
[2022-06-01] MEDS: POLYETHYLENE (MIRALAX) 17 GM PACK PO SCH (07:39)
[2022-06-01] MEDS: DULoxetine HCL 60 MG CAP PO SCH (07:39)
[2022-06-01] MEDS: FLUDROCORTISONE ACETATE 0.1 MG TAB PO SCH ×2 (07:40→20:42)
[2022-06-01] MEDS: HYDROCORTISONE 10 MG TAB PO SCH ×2 (07:40→13:33)
[2022-06-01] MEDS: PANTOprazole 40 MG TAB PO SCH (07:41)
[2022-06-01] MEDS: FAMOTIDINE 20 MG TAB PO SCH ×2 (07:41→20:42)
[2022-06-01] MEDS: GABAPENTIN 250 MG/5 ML 470 ML BTL PO SCH ×3 (07:48→20:42)
[2022-06-01] MEDS ORDERED: fentaNYL 50 MCG/HR TDSY TD SCH (13:15)
[2022-06-01] MEDS ORDERED: HYDROmorphone INJ 0.5 MG/0.5 ML SYR IV STA (14:56)
[2022-06-01] MEDS: HEPARIN 100 UNIT/ML 5ML FLUSH FLUSH PRN (15:36)
[2022-06-01] MEDS: METHOCARBAMOL 750 MG TABLET PO PRN (20:41)
[2022-06-01] MEDS: ondansetron HCL 8 MG in DEXTROSE 5% 50 ML IV PRN (20:41)
[2022-06-01] MEDS ORDERED: AMINO ACID 8% IV SCH (21:00)
[2022-06-01] MEDS ORDERED: CENTRAL TPN IV SCH (21:00)
[2022-06-01] MEDS ORDERED: [UNRECOGNIZED DRUG - OTHER] IV SCH (21:00)
[2022-06-02] MEDS: CHECK fentaNYL PATCH PLACEMENT SCH ×4 (00:01→23:26)
[2022-06-02] MEDS: HYDROmorphone INJ 0.5 MG/0.5 ML SYR IV PRN ×8 (00:59→22:45)
[2022-06-02] MEDS: oxyCODONE INTENSOL 20 MG/1 ML UDP PO SCH ×12 (01:52→23:24)
[2022-06-02] MEDS: LORazepam 1 mg IV INJ IV PRN ×2 (06:09→17:48)
[2022-06-02 07:10] LABS: BUN Creatinine Ratio 25.4 (10-20); Calcium 8.4 mg/dl (8.5-10.1); Creatinine Clr Calc Pharmacy 130.5 ml/min; Est GFR (African American) 142.5 ml/min; Phosphorus 4.3 mg/dl (2.5-4.9); Potassium 3.8 mmol/L (3.5-5.1)
[2022-06-02] MEDS: DICYCLOMINE HCL 10 MG CAP PO PRN ×2 (08:16→17:48)
[2022-06-02] MEDS: DULoxetine HCL 60 MG CAP PO SCH (08:17)
[2022-06-02] MEDS: PANTOprazole 40 MG TAB PO SCH (08:17)
[2022-06-02] MEDS: FAMOTIDINE 20 MG TAB PO SCH ×2 (08:17→20:43)
[2022-06-02] MEDS: HYDROCORTISONE 10 MG TAB PO SCH ×2 (08:17→13:59)
[2022-06-02] MEDS: FLUDROCORTISONE ACETATE 0.1 MG TAB PO SCH ×2 (08:17→20:43)
[2022-06-02] MEDS: POLYETHYLENE (MIRALAX) 17 GM PACK PO SCH (08:18)
[2022-06-02] MEDS: METHOCARBAMOL 750 MG TABLET PO PRN ×2 (08:24→23:25)
[2022-06-02] MEDS ORDERED: fentaNYL 50 MCG/HR TDSY TD SCH (09:00)
--- NOTE | 2022-06-02 09:17 | Hospitalist Progress Note ---
Date of Service June 02, 2022 Assessment & Plan (1) Seizure-like activity: Plan: 32yo female a complex PMH including gastroparesis, SMA syndrome, ileostomy placement, G-tube placement (on TPN), and adrenal insufficiency presents after multiple episodes of seizure-like activity at home, as well as with intractable abdominal pain and nausea. Chronic generalized abdominal pain, extensive GI history -Patient with very extensive GI history including gastroparesis and multiple abdominal surgeries -Possible intestinal transplant at [facility] [place] -Lactate elevated on admission, but repeat value (05/05) not elevated -Continue Bentyl, duloxetine, Pepcid, Protonix, gabapentin. Continue Zofran and Ativan staggered for nausea -05/06: CT a/p: mild stranding adjacent to the distal stomach with trace perigastric and perihepatic fluid, possibly postsurgical though gastritis/peptic ulcer disease is within the differential; no pneumoperitoneum; no intussusception; no bowel obstruction; status post subtotal colectomy with right lower quadrant ileostomy -05/07: CT a/p w/IV and oral contrast via G tube: mild improvement in wall thickening and adjacent fat stranding at the distal stomach -Pain regimen: Liquid oxycodone 20mg q2h scheduled, fentanyl patch 50 mcg Dilaudid 0.5mg q2h PRN for pain -- has required some spot doses of Dilaudid 0.25mg in between at times -Consulted pain management for potential alternative treatments -- no alternative recommendations at this time. -Triggers for patient's pain mostly isolated to moving G-J tube or ostomy site. May likely be caused by adhesional traction of stoma. Contacted patient's rachelle geon at [facility] [place] -Currently accepted for transfer to [place] for stoma revision to reduce pain [place] transfer number [phone] [place] surgeon number [phone] TPN catheter occlusion -Occurred 1 evening, likely lipid occlusion -Ordered midline placement to run nutrition PPN while TPN on hold initially Unable to place midline due to narrow veins -Port not alcohol compatible for treating lipid occlusion. -Fluoroscopy for a port check unable to be performed since not able to push contrast through it -Surgery consulted, port replaced 05/29 -Resumed TPN - tolerating well. Stoma infection: -Had pseudomonas bacteremia in September of 2019 secondary to stoma infection -05/11 w/ bleeding at stoma and development of some swelling around stoma. -05/12 development of erythema and discharge at stoma. -Wound culture with Enterococcus -Was treated with Keflex, then doxycycline, then cefdinir with some improvement -Stoma discharge mostly unchanged, still with episodes of moderate discharge Iron deficient anemia, chronic -Ferritin at 3.5 indicating severe iron deficient anemia -Discussed modalities of iron supplementation, will likely pursue Venofer while hospitalized -She would like to discuss this with her director of partner marketing, yet to hear back -Hemoglobin at 7.6 on 05/30, transfusion if below 7 with symptoms -Continue to monitor CBC. Seizure-like activity -Patient with multiple episodes of seizure-like activity which seem to be triggered by severe pain -Patient was evaluated in [facility] [place] for these in March 2022 -- epilepsy was ruled out and suspected episodes were PNES vs vagal related to pain - Past episodes in March causing bradycardia and unresponsiveness but never presented with postictal periods - More recent episodes with similar movements and unresponsiveness but no vital sign changes - Vitals remaining completely stable during current episodes and still shows no postictal period following them -Optimize pain control (as above) -Continue seizure and fall precautions -Recommend following up with PNES clinic at [facility] [place] Severe protein-calorie malnutrition -Secondary to extensive GI pathology -05/06: restarting TPN -05/23: port malfunction, TPN stopped, switched to PPN -05/29: Port replaced by surgery -- TPN restarted, PPN stopped -Plan to slowly introduce tube feeds pending clinical improvement Adrenal insufficiency -Chronic; hemodynamically stable -Continue hydrocortisone, fludrocortisone- at home dose Covid - Resolved -Patient tested positive on 04/18/2022 (at [facility] [place]), repeat PCR on admission still positive -Records from [facility] sent over. Isolation precautions removed. FEN: NPO other than crackers/sips, TPN per pharmacy Code status: full code DVT ppx: SCDs Dispo: PCU. Currently pending transfer to [facility] [place], accepted transfer and awaiting bed (2) Syncope: (3) Abdominal pain, chronic, generalized: (4) Adrenal insufficiency: (5) Chronic malnutrition: (6) Gastroparesis: (7) Gastrostomy tube in place: (8) Intestinal motility disorder: (9) Nausea and vomiting: (10) On total parenteral nutrition (TPN): (11) Severe protein-calorie malnutrition: (12) Iron deficiency anemia: Admission and Anticipated Discharge Date Admission Date: May 05, 2022 Supervising Physician Co-Signing Physician Notes I personally examined the patient and verified all solorzano points of history and exam, discussed case, and agree with decision making with Dr Alexander. Pain was bad over the weekend, starting to catch back up some. Notes that ostomy appears to be stuck out more again. Vitals noted, in general she is very fatigued but no distress. HEENT normocephalic atraumatic mucous membranes moist. Breathing unlabored no accessory muscle use good effort. Abdomen shows her ostomy to be intact, but with the stoma where feces comes out fairly inferior, and a fairly sizable amount of tissue also pushed out through the hole and pushing down on the remainder of the tissue. Abdominal pain: Chronic generalized abdominal pain in the setting of multiple abdominal surgeries, complex GI history. Continue to titrate pain management with IV narcotics, transdermal/p.o. narcoticsworking towards a potentially viable outpatient plan. Continue PO oxycodone and as possible continue to slowly decrease IV dilauded. Given the severity of her pain, it does not necessarily seem realistic at the current time to have her off of narcotics at the current time. Anticipate ostomy revision will have a pretty significant benefit. Did discuss with patient that I do not believe this will be "curative" for her painand she does not have any such expectations. Still pending transferI discussed this with her transplant surgeon in the tertiary care transfer team over a week agoDr. Boyd Yen but yeah exactly right it is like [facility] reversed you to see you later d called today, and apparently there is just a very significant backlog Chronic malnutrition: TPN - [facility] (dr morley) to assume responsibility after dc. eventual goal to titrate up tube feeds but right now not tolerating enough for nowon TPN Seizure-like activity: Recent diagnosis of PNES by [facility] provider. Continue to monitor with supportive care. Is having prolonged EEG in future by [facility] provider. Episodes really seem to be provoked by painduring previous hospital stay they largely appear to be an amplified vagal response, now seem to largely be an amplified vagal trigger but then a PNES phenotype once the episode has started. Again appears to be predominantly/entirely pain driven, and while I doubt they will totally vanish with better pain control, I suspect they will improve significantly. Having been at her bedside through multiple of these episodes, other than (expected) tachycardia she is entirely stable further duration. Episodes do seem to wax and wane in frequency and intensity in line with overall pain control GJ site cellulitis: resolved Adrenal insufficiency: Continue hydrocortisone, fludrocortisone. No stress dosing at this time. Anemia: chronic problem not at goal. Iron levels low here, has had iron infusions in the past however has Hx intolerance to multiple iron formulas in the past and unfortunately her director of partner marketing gave them no direction given that she was admitted under our service.. Transfusion if Hgb <7. Continue B12 shots Dispo: Transfer to [place] for evaluation of ostomy Subjective No acute events overnight. Per chart review, she has been receiving Dilaudid 0.5 mg PRN approximately q2h and oxycodone 20 mg approximately q2h as scheduled. She did miss 2 oxycodone doses overnight as she was asleep. Pt states she is in severe pain this AM, attributes this to missing some oxycodone doses last night. Pain is primarily located over her stoma site. She denies any new symptoms. Review of Systems Review of Systems: Per subjective Physical Exam Physical Exam: GENERAL: A&Ox3. NAD. CHEST/LUNGS: CTAB A/P. No crackles, wheezes, rales, rhonchi. HEART: RRR. No m/g/r. ABDOMEN: Colostomy bag in place. Tender around ostomy site, nondistended. SKIN: Warm and dry. No rashes or lesions. PSYCHIATRIC: Euthymic affect, no SI, no pressured speech, no hallucinations Results & Data Results & Data ([facility]) Vital Signs (Past 12 Hours) Vital Signs Temp Pulse Pulse Resp BP BP Pulse Ox 06/02/22 05:27 36.8 C 98 H 16 115/77 93 06/02/22 02:13 121 H 06/02/22 00:30 117 H 0 L 97 06/02/22 00:00 109 H 8 L 06/01/22 23:30 108 H 0 L 06/01/22 23:00 97 H 0 L 06/01/22 22:30 112 H 0 L 06/01/22 22:00 121 H 6 L 06/01/22 21:30 105 H 8 L 06/02/22 00:45 70 06/01/22 23:08 36.8 C 104 H 18 107/22 L 98 O2 Del Method 06/02/22 05:27 Room Air 06/02/22 02:13 06/02/22 00:30 06/02/22 00:00 06/01/22 23:30 06/01/22 23:00 06/01/22 22:30 06/01/22 22:00 06/01/22 21:30 06/02/22 00:45 06/01/22 23:08 Room Air Resident Activity Tracking Resident Involvement: Resident Care Provided Care Provided: Adult Hospital Medicine
[2022-06-02] MEDS: GABAPENTIN 250 MG/5 ML 470 ML BTL PO SCH ×3 (10:03→20:44)
[2022-06-02] MEDS: HEPARIN 100 UNIT/ML 5ML FLUSH FLUSH PRN (15:10)
[2022-06-02] MEDS ORDERED: HYDROmorphone INJ 0.5 MG/0.5 ML SYR IV STA ×2 (17:20→23:08)
--- NOTE | 2022-06-02 18:58 | Billing Data ---
Date of Service June 02, 2022 Coding Level of Care Code 64057 SUB INP/OBS CARE MIN
[2022-06-02] MEDS: ondansetron HCL 8 MG in DEXTROSE 5% 50 ML IV PRN (20:56)
[2022-06-02] MEDS ORDERED: AMINO ACID 8% IV SCH (21:00)
[2022-06-02] MEDS ORDERED: CENTRAL TPN IV SCH (21:00)
[2022-06-02] MEDS ORDERED: [UNRECOGNIZED DRUG - OTHER] IV SCH (21:00)
[2022-06-03] MEDS ORDERED: FAT EMUL/SOY/MCT/OLIV/FISH OIL 50 GM/250 ML BAG IV SCH
[2022-06-03] MEDS: DICYCLOMINE HCL 10 MG CAP PO PRN ×4 (00:26→22:25)
[2022-06-03] MEDS: LORazepam 1 mg IV INJ IV PRN ×3 (00:26→22:50)
[2022-06-03] MEDS: MELATONIN 3 MG TAB PO PRN ×2 (00:26→22:50)
[2022-06-03] MEDS: HYDROmorphone INJ 0.5 MG/0.5 ML SYR IV PRN ×9 (00:48→21:36)
[2022-06-03] MEDS: oxyCODONE INTENSOL 20 MG/1 ML UDP PO SCH ×12 (01:31→23:36)
[2022-06-03 08:03] LABS: Hematocrit (blood only) 23.5 % (34.1-44.9); Hemoglobin 7.1 g/dl (12.0-16.0); Mean Corpuscular Hemoglobin 26.2 pg (25.0-34.0); Mean Corpuscular Hgb Conc 30.2 g/dL (32.0-36.0); Mean Corpuscular Volume 86.7 fL (80.0-100.0); Mean Platelet Volume 10.4 fL (9.4-12.3); Platelet Count 337 K/uL (130-400); RDW Coefficient of Variation 14.1 % (11.5-14.5); RDW Standard Deviation 44.4 fL (36.4-46.3); Red Blood Count 2.71 M/uL (3.93-5.22); White Blood Count 5.24 K/ul (4.8-10.8)
[2022-06-03] MEDS: FAMOTIDINE 20 MG TAB PO SCH ×2 (08:05→22:23)
[2022-06-03] MEDS: PANTOprazole 40 MG TAB PO SCH (08:05)
[2022-06-03] MEDS: HYDROCORTISONE 10 MG TAB PO SCH ×2 (08:05→13:37)
[2022-06-03] MEDS: FLUDROCORTISONE ACETATE 0.1 MG TAB PO SCH ×2 (08:05→22:24)
[2022-06-03] MEDS: DULoxetine HCL 60 MG CAP PO SCH (08:05)
[2022-06-03] MEDS: GABAPENTIN 250 MG/5 ML 470 ML BTL PO SCH ×3 (08:05→22:23)
[2022-06-03] MEDS: POLYETHYLENE (MIRALAX) 17 GM PACK PO SCH (08:06)
[2022-06-03] MEDS: CHECK fentaNYL PATCH PLACEMENT SCH ×3 (08:07→23:37)
[2022-06-03 08:23] LABS: BUN Creatinine Ratio 22.6 (10-20); Calcium 8.3 mg/dl (8.5-10.1); Creatinine Clr Calc Pharmacy 124.2 ml/min; Est GFR (African American) 140.2 ml/min; Phosphorus 4.6 mg/dl (2.5-4.9)
--- NOTE | 2022-06-03 09:46 | Hospitalist Progress Note ---
Date of Service June 03, 2022 Assessment & Plan (1) Seizure-like activity: Plan: 32yo female a complex PMH including gastroparesis, SMA syndrome, ileostomy placement, G-tube placement (on TPN), and adrenal insufficiency presents after multiple episodes of seizure-like activity at home, as well as with intractable abdominal pain and nausea. Chronic generalized abdominal pain, extensive GI history -Patient with very extensive GI history including gastroparesis and multiple abdominal surgeries -Possible intestinal transplant at [facility] -Lactate elevated on admission, but repeat value (05/05) not elevated -Continue Bentyl, duloxetine, Pepcid, Protonix, gabapentin. Continue Zofran and Ativan staggered for nausea -05/06: CT a/p: mild stranding adjacent to the distal stomach with trace perigastric and perihepatic fluid, possibly postsurgical though gastritis/peptic ulcer disease is within the differential; no pneumoperitoneum; no intussusception; no bowel obstruction; status post subtotal colectomy with right lower quadrant ileostomy -05/07: CT a/p w/IV and oral contrast via G tube: mild improvement in wall thickening and adjacent fat stranding at the distal stomach -Pain regimen: Liquid oxycodone 20mg q2h scheduled, fentanyl patch 50 mcg Dilaudid 0.5mg q2h PRN for pain -- has required some spot doses of Dilaudid 0.25mg in between at times -Consulted pain management for potential alternative treatments -- no alternative recommendations at this time. -Triggers for patient's pain mostly isolated to moving G-J tube or ostomy site. May likely be caused by adhesional traction of stoma. Contacted patient's rachelle geon at [facility] -Currently accepted for transfer to [place] for stoma revision to reduce pain [place] transfer number [phone] [place] surgeon number [phone] TPN catheter occlusion -Occurred 1 evening, likely lipid occlusion -Ordered midline placement to run nutrition PPN while TPN on hold initially Unable to place midline due to narrow veins -Port not alcohol compatible for treating lipid occlusion. -Fluoroscopy for a port check unable to be performed since not able to push contrast through it -Surgery consulted, port replaced 05/29 -Resumed TPN - tolerating well. Stoma infection: -Had pseudomonas bacteremia in September of 2019 secondary to stoma infection -05/11 w/ bleeding at stoma and development of some swelling around stoma. -05/12 development of erythema and discharge at stoma. -Wound culture with Enterococcus -Was treated with Keflex, then doxycycline, then cefdinir with some improvement -Stoma discharge mostly unchanged, still with episodes of moderate discharge Iron deficient anemia, chronic -Ferritin at 3.5 indicating severe iron deficient anemia -Discussed modalities of iron supplementation, will likely pursue Venofer while hospitalized -She would like to discuss this with her computer systems architect, yet to hear back -Hemoglobin at 7.6 on 05/30, transfusion if below 7 with symptoms -Continue to monitor CBC. Seizure-like activity -Patient with multiple episodes of seizure-like activity which seem to be triggered by severe pain -Patient was evaluated in [facility] for these in March 2022 -- epilepsy was ruled out and suspected episodes were PNES vs vagal related to pain - Past episodes in March causing bradycardia and unresponsiveness but never presented with postictal periods - More recent episodes with similar movements and unresponsiveness but no vital sign changes - Vitals remaining completely stable during current episodes and still shows no postictal period following them -Optimize pain control (as above) -Continue seizure and fall precautions -Recommend following up with PNES clinic at [facility] Severe protein-calorie malnutrition -Secondary to extensive GI pathology -05/06: restarting TPN -05/23: port malfunction, TPN stopped, switched to PPN -05/29: Port replaced by surgery -- TPN restarted, PPN stopped -Plan to slowly introduce tube feeds pending clinical improvement Adrenal insufficiency -Chronic; hemodynamically stable -Continue hydrocortisone, fludrocortisone- at home dose Covid - Resolved -Patient tested positive on 04/18/2022 (at [facility]), repeat PCR on admission still positive -Records from [facility] sent over. Isolation precautions removed. FEN: NPO other than crackers/sips, TPN per pharmacy Code status: full code DVT ppx: SCDs Dispo: PCU. Currently pending transfer to [facility], accepted transfer and awaiting bed (2) Syncope: (3) Abdominal pain, chronic, generalized: (4) Adrenal insufficiency: (5) Chronic malnutrition: (6) Gastroparesis: (7) Gastrostomy tube in place: (8) Intestinal motility disorder: (9) Nausea and vomiting: (10) On total parenteral nutrition (TPN): (11) Severe protein-calorie malnutrition: (12) Iron deficiency anemia: Admission and Anticipated Discharge Date Admission Date: May 05, 2022 Supervising Physician Co-Signing Physician Notes I personally examined the patient and verified all solorzano points of history and exam, discussed case, and agree with decision making with Dr Daley. Pain still fairly bad. Probably slightly better than yesterday. Vitals noted, in general she is very fatigued but no distress. HEENT normocephalic atraumatic mucous membranes moist. Breathing unlabored no accessory muscle use good effort. Abdominal pain: Chronic generalized abdominal pain in the setting of multiple abdominal surgeries, complex GI history. Continue to titrate pain management with IV narcotics, transdermal/p.o. narcoticsworking towards a potentially viable outpatient plan. Continue PO oxycodone and as possible continue to try to slowly decrease IV dilauded. Given the severity of her pain, it does not necessarily seem realistic at the current time to have her off of narcotics at the current time. Anticipate ostomy revision will have a pretty significant benefit. Did discuss with patient that I do not believe this will be "curative" for her painand she does not have any such expectations. Still pending transferI discussed this with her transplant surgeon in the tertiary care transfer team over a week agodr daley called again today, and apparently there is just a very significant backlog Chronic malnutrition: TPN - [facility] (dr morley) to assume responsibility after dc. eventual goal to titrate up tube feeds but right now not tolerating enough for nowon TPN Seizure-like activity: Recent diagnosis of PNES by [facility] provider. Continue to monitor with supportive care. Is having prolonged EEG in future by [facility] provider. Episodes really seem to be provoked by painduring previous hospital stay they largely appear to be an amplified vagal response, now seem to largely be an amplified vagal trigger but then a PNES phenotype once the episode has started. Again appears to be predominantly/entirely pain driven, and while I doubt they will totally vanish with better pain control, I suspect they will improve significantly. Having been at her bedside through multiple of these episodes, other than (expected) tachycardia she is entirely stable further duration. Episodes do seem to wax and wane in frequency and intensity in line with overall pain control GJ site cellulitis: resolved Adrenal insufficiency: Continue hydrocortisone, fludrocortisone. No stress dosing at this time. Anemia: chronic problem not at goal. Iron levels low here, has had iron infusions in the past however has Hx intolerance to multiple iron formulas in the past and unfortunately her computer systems architect gave them no direction given that she was admitted under our service.. Transfusion if Hgb <7. Continue B12 shots Dispo: Transfer to [place] for evaluation of ostomy Subjective No acute events overnight. Per chart review, she has been receiving Dilaudid 0.5 mg PRN approximately q2h and oxycodone 20 mg approximately q2h as scheduled. Received additional 0.25 mg Dilaudid for breakthrough pain as well. Pt's pain is currently at 7/10, still over her stoma site. She doesn't feel the pain is worsening but not particularly decreasing over the past few days. Review of Systems Review of Systems: Per subjective Physical Exam Physical Exam: GENERAL: A&Ox3. NAD. CHEST/LUNGS: CTAB A/P. No crackles, wheezes, rales, rhonchi. HEART: RRR. No m/g/r. ABDOMEN: Colostomy bag in place. Tender around ostomy site, nondistended. SKIN: Warm and dry. No rashes or lesions. PSYCHIATRIC: Euthymic affect, no SI, no pressured speech, no hallucinations Results & Data Results & Data ([facility]) Vital Signs (Past 12 Hours) Vital Signs Temp Pulse Pulse Resp BP BP Pulse Ox 06/03/22 07:11 36.7 C 98 H 18 108/72 96 06/03/22 03:08 36.7 C 108 H 18 112/76 97 06/02/22 22:03 104 H 06/02/22 22:56 36.8 C 112 H 16 113/74 99 O2 Del Method 06/03/22 07:11 Room Air 06/03/22 03:08 Room Air 06/02/22 22:03 06/02/22 22:56 Room Air Resident Activity Tracking Resident Involvement: Resident Care Provided Care Provided: Adult Hospital Medicine
--- NOTE | 2022-06-03 18:32 | Billing Data ---
Date of Service June 03, 2022 Coding Level of Care Code 33495 SUB INP/OBS CARE MIN
[2022-06-03] MEDS: ondansetron HCL 8 MG in DEXTROSE 5% 50 ML IV PRN (19:54)
[2022-06-03] MEDS ORDERED: [UNRECOGNIZED DRUG - OTHER] IV SCH (21:00)
[2022-06-03] MEDS ORDERED: AMINO ACID 8% IV SCH (21:00)
[2022-06-03] MEDS ORDERED: CENTRAL TPN IV SCH (21:00)
[2022-06-03] MEDS ORDERED: HYDROmorphone INJ 0.5 MG/0.5 ML SYR IV STA (22:14)
[2022-06-03] MEDS: METHOCARBAMOL 750 MG TABLET PO PRN (22:26)
[2022-06-04] MEDS: HYDROmorphone INJ 0.5 MG/0.5 ML SYR IV PRN ×11 (00:35→23:40)
[2022-06-04] MEDS: oxyCODONE INTENSOL 20 MG/1 ML UDP PO SCH ×12 (01:44→23:41)
[2022-06-04] MEDS: DICYCLOMINE HCL 10 MG CAP PO PRN ×3 (04:34→23:47)
[2022-06-04] MEDS: LORazepam 1 mg IV INJ IV PRN ×3 (04:52→23:39)
[2022-06-04] MEDS: GABAPENTIN 250 MG/5 ML 470 ML BTL PO SCH ×3 (07:47→20:19)
[2022-06-04] MEDS: FAMOTIDINE 20 MG TAB PO SCH ×2 (07:48→20:17)
[2022-06-04] MEDS: FLUDROCORTISONE ACETATE 0.1 MG TAB PO SCH ×2 (07:48→20:16)
[2022-06-04] MEDS: CHECK fentaNYL PATCH PLACEMENT SCH ×2 (07:49→15:35)
[2022-06-04] MEDS: HYDROCORTISONE 10 MG TAB PO SCH ×2 (07:49→14:57)
[2022-06-04] MEDS: DULoxetine HCL 60 MG CAP PO SCH (07:49)
[2022-06-04] MEDS: POLYETHYLENE (MIRALAX) 17 GM PACK PO SCH (07:50)
[2022-06-04] MEDS: PANTOprazole 40 MG TAB PO SCH (07:50)
[2022-06-04 09:14] LABS: Hematocrit (blood only) 24.5 % (34.1-44.9); Hemoglobin 7.5 g/dl (12.0-16.0); Mean Corpuscular Hemoglobin 26.3 pg (25.0-34.0); Mean Corpuscular Hgb Conc 30.6 g/dL (32.0-36.0); Mean Platelet Volume 11.1 fL (9.4-12.3); Platelet Count 344 K/uL (130-400); RDW Coefficient of Variation 14.1 % (11.5-14.5); RDW Standard Deviation 44.7 fL (36.4-46.3); Red Blood Count 2.85 M/uL (3.93-5.22); White Blood Count 4.68 K/ul (4.8-10.8)
--- NOTE | 2022-06-04 09:35 | Hospitalist Progress Note ---
Date of Service June 04, 2022 Assessment & Plan (1) Seizure-like activity: Plan: 32yo female a complex PMH including gastroparesis, SMA syndrome, ileostomy placement, G-tube placement (on TPN), and adrenal insufficiency presents after multiple episodes of seizure-like activity at home, as well as with intractable abdominal pain and nausea. Chronic generalized abdominal pain, extensive GI history -Patient with very extensive GI history including gastroparesis and multiple abdominal surgeries -Possible intestinal transplant at [facility] -Lactate elevated on admission, but repeat value (05/05) not elevated -Continue Bentyl, duloxetine, Pepcid, Protonix, gabapentin. Continue Zofran and Ativan staggered for nausea -05/06: CT a/p: mild stranding adjacent to the distal stomach with trace perigastric and perihepatic fluid, possibly postsurgical though gastritis/peptic ulcer disease is within the differential; no pneumoperitoneum; no intussusception; no bowel obstruction; status post subtotal colectomy with right lower quadrant ileostomy -05/07: CT a/p w/IV and oral contrast via G tube: mild improvement in wall thickening and adjacent fat stranding at the distal stomach -Pain regimen: Liquid oxycodone 20mg q2h scheduled, fentanyl patch 50 mcg Dilaudid 0.5mg q2h PRN for pain -- has required some spot doses of Dilaudid 0.25mg in between at times -Consulted pain management for potential alternative treatments -- no alternative recommendations at this time. -Triggers for patient's pain mostly isolated to moving G-J tube or ostomy site. May likely be caused by adhesional traction of stoma. Contacted patient's rachelle geon at [facility] -Currently accepted for transfer to [place] for stoma revision to reduce pain [place] transfer number [phone] [place] surgeon number [phone] TPN catheter occlusion -Occurred 1/ evening, likely lipid occlusion -Ordered midline placement to run nutrition PPN while TPN on hold initially Unable to place midline due to narrow veins -Port not alcohol compatible for treating lipid occlusion. -Fluoroscopy for a port check unable to be performed since not able to push contrast through it -Surgery consulted, port replaced 05/29 -Ongoing TPN - tolerating well. Stoma infection: -Had pseudomonas bacteremia in September of 2019 secondary to stoma infection -05/11 w/ bleeding at stoma and development of some swelling around stoma. -05/12 development of erythema and discharge at stoma. -Wound culture with Enterococcus -Was treated with Keflex, then doxycycline, then cefdinir with some improvement -Stoma discharge mostly unchanged, still with episodes of moderate discharge Iron deficient anemia, chronic -Ferritin at 3.5 indicating severe iron deficient anemia -Discussed modalities of iron supplementation -Hemoglobin 7.5, transfusion if below 7 with symptoms -Continue to monitor CBC. Seizure-like activity -Patient with multiple episodes of seizure-like activity which seem to be triggered by severe pain -Patient was evaluated in [facility] for these in March 2022 -- epilepsy was ruled out and suspected episodes were PNES vs vagal related to pain - Past episodes in March causing bradycardia and unresponsiveness but never presented with postictal periods - More recent episodes with similar movements and unresponsiveness but no vit al sign changes - Vitals remaining completely stable during current episodes and still shows no postictal period following them -Optimize pain control (as above) -Continue seizure and fall precautions -Recommend following up with PNES clinic at [facility] Severe protein-calorie malnutrition -Secondary to extensive GI pathology -05/06: restarting TPN -05/23: port malfunction, TPN stopped, switched to PPN -05/29: Port replaced by surgery -- TPN restarted, PPN stopped -Plan to slowly introduce tube feeds pending clinical improvement Adrenal insufficiency -Chronic; hemodynamically stable -Continue hydrocortisone, fludrocortisone- at home dose Covid - Resolved -Patient tested positive on 04/18/2022 (at [facility]), repeat PCR on admission still positive -Records from [facility] sent over. Isolation precautions removed. FEN: NPO other than crackers/sips, TPN per pharmacy Code status: full code DVT ppx: SCDs Dispo: PCU. Currently pending transfer to [facility], accepted transfer and awaiting bed (2) Syncope: (3) Abdominal pain, chronic, generalized: (4) Adrenal insufficiency: (5) Chronic malnutrition: (6) Gastroparesis: (7) Gastrostomy tube in place: (8) Intestinal motility disorder: (9) Nausea and vomiting: (10) On total parenteral nutrition (TPN): (11) Severe protein-calorie malnutrition: (12) Iron deficiency anemia: Admission and Anticipated Discharge Date Admission Date: May 05, 2022 Supervising Physician Co-Signing Physician Notes I personally examined the patient and verified all solorzano points of history and exam, discussed case, and agree with decision making with Dr Daley. Pain overall trending towards worse. She notes that typically her pain is at a 9, the p.o. oxycodone will improve it for an hour or 2 down to a 7, the IV Dilaudid may be to a 6. At the same time, she feels like overall over the last 5 days or so her pain probably has been an overall trend towards worsening. Also noted roughly 15 pounds of weight gain in the last week. Vitals noted, in general she is very fatigued but no distress. HEENT normocephalic atraumatic mucous membranes moist. Breathing unlabored no accessory muscle use good effort. Abdominal pain: Chronic generalized abdominal pain in the setting of multiple abdominal surgeries, complex GI history. Continue to titrate pain controlwhile yesterday maybe was a little bit better briefly, on revisit today, her overall trend the last 5 days or so has been that of worsening. There has been a concern as to whether or not she is absorbing the fentanyl and her patch due to her paucity of body fatI certainly harbor the same concerns. That said, on chart review, around 05/28 her fentanyl was reduced from 75 mcg to 50 mcg with thought that the additional was not helping that muchand it seems to be a day (maybe 2) later where her best guess as to the trend of worsening pain seems to have started to be noticeableto that end, while I do not suspect she is absorbing all of her transdermal fentanyl, I do see this is evidence that it is helping at least someand given that she is needing [id number] short acting pain control with inadequate reliefwill reescalate her fentanyl patch to 75 mcg. Anticipate ostomy revision will have a pretty significant benefit. Did discuss with patient that I do not believe this will be "curative" for her painand she does not have any such expectations. Still pending transferI discussed this with her transplant surgeon in the tertiary care transfer team over a week agodr daley called thus far several times this week, and apparently there is just a very significant backlog Chronic malnutrition: TPN - [facility] (dr morley) to assume responsibility after dc. eventual goal to titrate up tube feeds but right now not tolerating enough for nowon TPN. I suspect the bulk of her weight gain is just fluid re tention. Discussed with patient and mom extensively. 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 Continue to monitor with supportive care. Is having prolonged EEG in future by [facility] provider. Episodes really seem to be provoked by painduring previous hospital stay they largely appear to be an amplified vagal response, now seem to largely be an amplified vagal trigger but then a PNES phenotype once the episode has started. Again appears to be predominantly/entirely pain driven, and while I doubt they will totally vanish with better pain control, I suspect they will improve significantly. Having been at her bedside through multiple of these episodes, other than (expected) tachycardia she is entirely stable further duration. Episodes do seem to wax and wane in frequency and intensity in line with overall pain control GJ site cellulitis: resolved Adrenal insufficiency: Continue hydrocortisone, fludrocortisone. No stress dosing at this time. Anemia: chronic problem not at goal. Iron levels low here, has had iron infusions in the past however has Hx intolerance to multiple iron formulas in the past and unfortunately her wireless sales consultant gave them no direction given that she was admitted under our service.. Transfusion if Hgb <7. Continue B12 shots Dispo: Transfer to [place] for evaluation of ostomy Subjective No acute events overnight. Continues to receive Dilaudid PRN every 2 hours, has gotten 0.25 mg Dilaudid x1 for breakthrough pain last night. She did not sleep well, reports continued severe pain. No other new symptoms. Review of Systems Review of Systems: Per subjective Physical Exam Physical Exam: GENERAL: A&Ox3. NAD. CHEST/LUNGS: CTAB A/P. No crackles, wheezes, rales, rhonchi. HEART: RRR. No m/g/r. ABDOMEN: Colostomy bag in place. Tender around ostomy site, nondistended. SKIN: Warm and dry. No rashes or lesions. PSYCHIATRIC: Euthymic affect, no SI, no pressured speech, no hallucinations Results & Data Results & Data ([facility]) Vital Signs (Past 12 Hours) Vital Signs Temp Pulse Pulse Resp BP Pulse Ox O2 Del Method 06/04/22 02:51 36.8 C 105 H 18 107/73 94 Room Air 06/03/22 21:54 98 H 06/03/22 23:21 36.8 C 102 H 18 112/76 98 Room Air Resident Activity Tracking Resident Involvement: Resident Care Provided Care Provided: Adult Hospital Medicine
[2022-06-04 09:43] LABS: BUN Creatinine Ratio 25.4 (10-20); Calcium 8.4 mg/dl (8.5-10.1); Creatinine Clr Calc Pharmacy 122.2 ml/min; Est GFR (African American) 139.5 ml/min; Est GFR (Non-African American) 120.4 ml/min; Phosphorus 4.6 mg/dl (2.5-4.9); Potassium 3.9 mmol/L (3.5-5.1)
[2022-06-04] MEDS ORDERED: fentaNYL 75 MCG/HR TDSY TD SCH (17:35)
--- NOTE | 2022-06-04 17:36 | Billing Data ---
Date of Service June 04, 2022 Coding Level of Care Code 85540 SUB INP/OBS CARE MIN
[2022-06-04] MEDS ORDERED: [UNRECOGNIZED DRUG - OTHER] IV SCH (21:00)
[2022-06-04] MEDS ORDERED: AMINO ACID 8% IV SCH (21:00)
[2022-06-04] MEDS ORDERED: CENTRAL TPN IV SCH (21:00)
[2022-06-04] MEDS: MELATONIN 3 MG TAB PO PRN (23:39)
[2022-06-04] MEDS: METHOCARBAMOL 750 MG TABLET PO PRN (23:40)
[2022-06-05] MEDS ORDERED: FAT EMUL/SOY/MCT/OLIV/FISH OIL 50 GM/250 ML BAG IV SCH
[2022-06-05] MEDS: HYDROmorphone INJ 0.5 MG/0.5 ML SYR IV PRN ×11 (01:28→23:30)
[2022-06-05] MEDS: CHECK fentaNYL PATCH PLACEMENT SCH ×3 (01:50→17:04)
[2022-06-05] MEDS: oxyCODONE INTENSOL 20 MG/1 ML UDP PO SCH ×11 (01:51→22:24)
[2022-06-05] MEDS ORDERED: HYDROmorphone INJ 0.5 MG/0.5 ML SYR IV STA ×2 (02:09→18:21)
[2022-06-05] MEDS: ondansetron HCL 8 MG in DEXTROSE 5% 50 ML IV PRN (02:23)
[2022-06-05 07:36] LABS: Hematocrit (blood only) 23.4 % (34.1-44.9); Hemoglobin 7.2 g/dl (12.0-16.0); Mean Corpuscular Hemoglobin 26.1 pg (25.0-34.0); Mean Corpuscular Hgb Conc 30.8 g/dL (32.0-36.0); Mean Corpuscular Volume 84.8 fL (80.0-100.0); Platelet Count 345 K/uL (130-400); RDW Coefficient of Variation 14.5 % (11.5-14.5); RDW Standard Deviation 44.9 fL (36.4-46.3); Red Blood Count 2.76 M/uL (3.93-5.22); White Blood Count 5.51 K/ul (4.8-10.8)
[2022-06-05] MEDS: DICYCLOMINE HCL 10 MG CAP PO PRN ×2 (07:49→20:45)
[2022-06-05] MEDS: LORazepam 1 mg IV INJ IV PRN ×3 (07:49→22:24)
[2022-06-05 08:26] LABS: BUN Creatinine Ratio 26.2 (10-20); Calcium 8.3 mg/dl (8.5-10.1); Creatinine Clr Calc Pharmacy 126.2 ml/min; Est GFR (Non-African American) 121.7 ml/min; Phosphorus 4.4 mg/dl (2.5-4.9); Potassium 4.1 mmol/L (3.5-5.1)
[2022-06-05] MEDS: PANTOprazole 40 MG TAB PO SCH (08:41)
[2022-06-05] MEDS: HYOSCYAMINE SULFATE 0.125 MG TAB SL PRN (08:41)
[2022-06-05] MEDS: HYDROCORTISONE 10 MG TAB PO SCH ×2 (08:41→13:42)
[2022-06-05] MEDS: POLYETHYLENE (MIRALAX) 17 GM PACK PO SCH (08:42)
[2022-06-05] MEDS: FLUDROCORTISONE ACETATE 0.1 MG TAB PO SCH ×2 (08:42→20:45)
[2022-06-05] MEDS: FAMOTIDINE 20 MG TAB PO SCH ×2 (08:42→20:44)
[2022-06-05] MEDS: METHOCARBAMOL 750 MG TABLET PO PRN ×2 (08:42→22:24)
[2022-06-05] MEDS: DULoxetine HCL 60 MG CAP PO SCH (08:42)
[2022-06-05] MEDS: GABAPENTIN 250 MG/5 ML 470 ML BTL PO SCH ×3 (10:16→20:44)
--- NOTE | 2022-06-05 10:28 | Hospitalist Progress Note ---
Date of Service June 05, 2022 Assessment & Plan (1) Seizure-like activity: Plan: 32yo female a complex PMH including gastroparesis, SMA syndrome, ileostomy placement, G-tube placement (on TPN), and adrenal insufficiency presents after multiple episodes of seizure-like activity at home, as well as with intractable abdominal pain and nausea. Chronic generalized abdominal pain, extensive GI history -Patient with very extensive GI history including gastroparesis and multiple abdominal surgeries -Possible intestinal transplant at [facility] -Lactate elevated on admission, but repeat value (05/05) not elevated -Continue Bentyl, duloxetine, Pepcid, Protonix, gabapentin. Continue Zofran and Ativan staggered for nausea -05/06: CT a/p: mild stranding adjacent to the distal stomach with trace perigastric and perihepatic fluid, possibly postsurgical though gastritis/peptic ulcer disease is within the differential; no pneumoperitoneum; no intussusception; no bowel obstruction; status post subtotal colectomy with right lower quadrant ileostomy -05/07: CT a/p w/IV and oral contrast via G tube: mild improvement in wall thickening and adjacent fat stranding at the distal stomach -Pain regimen: Liquid oxycodone 20mg q2h scheduled, fentanyl patch 75 mcg Dilaudid 0.5mg q2h PRN for pain -- has required some spot doses of Dilaudid 0.25mg in between at times -Consulted pain management for potential alternative treatments -- no alternative recommendations at this time. -Triggers for patient's pain mostly isolated to moving G-J tube or ostomy site. May likely be caused by adhesional traction of stoma. Contacted patient's rachelle geon at [facility] -Currently accepted for transfer to [place] for stoma revision to reduce pain [place] transfer number [phone] [place] surgeon number [phone] TPN catheter occlusion -Occurred 1/ evening, likely lipid occlusion -Ordered midline placement to run nutrition PPN while TPN on hold initially Unable to place midline due to narrow veins -Port not alcohol compatible for treating lipid occlusion. -Fluoroscopy for a port check unable to be performed since not able to push contrast through it -Surgery consulted, port replaced 05/29 -Ongoing TPN - tolerating well. Stoma infection: -Had pseudomonas bacteremia in September of 2019 secondary to stoma infection -05/11 w/ bleeding at stoma and development of some swelling around stoma. -05/12 development of erythema and discharge at stoma. -Wound culture with Enterococcus -Was treated with Keflex, then doxycycline, then cefdinir with some improvement -Stoma discharge mostly unchanged, still with episodes of moderate discharge Iron deficient anemia, chronic -Ferritin at 3.5 indicating severe iron deficient anemia -Discussed modalities of iron supplementation -Hemoglobin 7.5, transfusion if below 7 with symptoms -Continue to monitor CBC. Seizure-like activity -Patient with multiple episodes of seizure-like activity which seem to be triggered by severe pain -Patient was evaluated in [facility] for these in March 2022 -- epilepsy was ruled out and suspected episodes were PNES vs vagal related to pain - Past episodes in March causing bradycardia and unresponsiveness but never presented with postictal periods - More recent episodes with similar movements and unresponsiveness but no vit al sign changes - Vitals remaining completely stable during current episodes and still shows no postictal period following them -Optimize pain control (as above) -Continue seizure and fall precautions -Recommend following up with PNES clinic at [facility] Severe protein-calorie malnutrition -Secondary to extensive GI pathology -05/06: restarting TPN -05/23: port malfunction, TPN stopped, switched to PPN -05/29: Port replaced by surgery -- TPN restarted, PPN stopped -Plan to slowly introduce tube feeds pending clinical improvement Adrenal insufficiency -Chronic; hemodynamically stable -Continue hydrocortisone, fludrocortisone- at home dose Covid - Resolved -Patient tested positive on 04/18/2022 (at [facility]), repeat PCR on admission still positive -Records from [facility] sent over. Isolation precautions removed. FEN: NPO other than crackers/sips, TPN per pharmacy Code status: full code DVT ppx: SCDs Dispo: PCU. Currently pending transfer to [facility], accepted transfer and awaiting bed (2) Syncope: (3) Abdominal pain, chronic, generalized: (4) Adrenal insufficiency: (5) Chronic malnutrition: (6) Gastroparesis: (7) Gastrostomy tube in place: (8) Intestinal motility disorder: (9) Nausea and vomiting: (10) On total parenteral nutrition (TPN): (11) Severe protein-calorie malnutrition: (12) Iron deficiency anemia: Admission and Anticipated Discharge Date Admission Date: May 05, 2022 Supervising Physician Co-Signing Physician Notes I personally examined the patient and verified all solorzano points of history and exam, discussed case, and agree with decision making with Dr Alexander. pain more or less the same today - aware that patch may take a little longer for higher dose to take effect. wonders about a little additional pain medicine at night to help w sleep Vitals noted, in general she is very fatigued but no distress. HEENT normocephalic atraumatic mucous membranes moist. Breathing unlabored no accessory muscle use good effort. Abdominal pain: Chronic generalized abdominal pain in the setting of multiple abdominal surgeries, complex GI history. Continue to titrate pain controlincreased fentanyl yesterday - allow more time for it to take effect (on chart review, around 05/28 her fentanyl was reduced from 75 mcg to 50 mcg with thought that the additional was not helping that muchand it seems to be a day (maybe 2) later where her best guess as to the trend of worsening pain seems to have started to be noticeableto that end, while I do not suspect she is absorbing all of her transdermal fentanyl, I do see this is evidence that it is helping at least some); schedule dilauded HS to try to help w rest. anticipate ostomy revision likely to help some (although pt aware unlikely to "fix" her pain) Chronic malnutrition: TPN - [facility] (dr morley) to assume responsibility after dc. eventual goal to titrate up tube feeds but right now not tolerating enough for nowon TPN. I suspect the bulk of her weight gain is just fluid retention. Discussed with patient and mom extensively. Seizure-like activity: Recent diagnosis of PNES by [facility] provider. Continue to monitor with supportive care. Is having prolonged EEG in future by [facility] provider. Episodes really seem to be provoked by painduring previous hospital stay they largely appear to be an amplified vagal response, now seem to largely be an amplified vagal trigger but then a PNES phenotype once the episode has started. Again appears to be predominantly/entirely pain driven, and while I doubt they will totally vanish with better pain control, I suspect they will improve significantly. Having been at her bedside through multiple of these episodes, other than (expected) tachycardia she is entirely stable further duration. Episodes do seem to wax and wane in frequency and intensity in line with overall pain control, continue to follow GJ site cellulitis: resolved Adrenal insufficiency: Continue hydrocortisone, fludrocortisone. No stress dosing at this time. Anemia: chronic problem not at goal. Iron levels low here, has had iron infusions in the past however has Hx intolerance to multiple iron formulas in the past and unfortunately her solid waste technician gave them no direction given that she was admitted under our service.. Transfusion if Hgb <7. Continue B12 shots Dispo: Transfer to [place] for evaluation of ostomy, awaiting bed Subjective No acute events overnight. Continues to receive Dilaudid PRN every 2 hours along with scheduled oxycodone. She is still struggling with pain. Her fentanyl patch dose was increased to 75 mcg yesterday, she is hopeful this may help reduce her pain a bit. She denies any new symptoms. Review of Systems Review of Systems: Per subjective Physical Exam Physical Exam: GENERAL: A&Ox3. NAD. CHEST/LUNGS: CTAB A/P. No crackles, wheezes, rales, rhonchi. HEART: RRR. No m/g/r. ABDOMEN: Colostomy bag in place. Tender around ostomy site, nondistended. SKIN: Warm and dry. No rashes or lesions. PSYCHIATRIC: Euthymic affect, no SI, no pressured speech, no hallucinations Results & Data Results & Data ([facility]) Vital Signs (Past 12 Hours) Vital Signs Temp Pulse Resp BP BP Pulse Ox O2 Del Method 06/05/22 04:06 36.8 C 94 H 16 104/69 94 Room Air 06/04/22 23:12 36.9 C 103 H 18 116/78 96 Room Air Resident Activity Tracking Resident Involvement: Resident Care Provided Care Provided: Adult Hospital Medicine
--- NOTE | 2022-06-05 16:50 | Billing Data ---
Date of Service June 05, 2022 Coding Level of Care Code 07737 SUB INP/OBS CARE MIN
[2022-06-05] MEDS ORDERED: AMINO ACID 8% IV SCH (21:00)
[2022-06-05] MEDS ORDERED: CENTRAL TPN IV SCH (21:00)
[2022-06-05] MEDS ORDERED: [UNRECOGNIZED DRUG - OTHER] IV SCH (21:00)
[2022-06-05] MEDS: MELATONIN 3 MG TAB PO PRN (22:24)
[2022-06-05] MEDS: HYDROmorphone INJ 0.5 MG/0.5 ML SYR IV SCH (22:25)
[2022-06-06] MEDS: oxyCODONE INTENSOL 20 MG/1 ML UDP PO SCH ×13 (00:38→23:40)
[2022-06-06] MEDS: HYDROmorphone INJ 0.5 MG/0.5 ML SYR IV PRN ×12 (01:30→23:41)
[2022-06-06] MEDS: CHECK fentaNYL PATCH PLACEMENT SCH ×3 (01:40→15:53)
[2022-06-06] MEDS: DICYCLOMINE HCL 10 MG CAP PO PRN ×3 (05:04→21:54)
[2022-06-06] MEDS: LORazepam 1 mg IV INJ IV PRN ×3 (05:05→21:55)
--- NOTE | 2022-06-06 06:37 | Hospitalist Progress Note ---
Date of Service June 06, 2022 Assessment & Plan (1) Seizure-like activity: Plan: 32yo female a complex PMH including gastroparesis, SMA syndrome, ileostomy placement, G-tube placement (on TPN), and adrenal insufficiency presents after multiple episodes of seizure-like activity at home, as well as with intractable abdominal pain and nausea. Chronic generalized abdominal pain, extensive GI history -Patient with very extensive GI history including gastroparesis and multiple abdominal surgeries and possible intestinal transplant at [facility] -Suspect multifactorial: postsurgical/traction related from G-J tube movement/stoma-related, functional, previously infectious, ?ulcer -Triggers for patient's pain mostly isolated to moving G-J tube or ostomy site. May likely be caused by adhesional traction of stoma. Contacted patient's surgeon at [facility] -CT-A/Ps (05/06-) while here demonstrated stranding adjacent to distal stomach, improved on subsequent scans -Pain regimen: Agreed by from Pain Management Continue Bentyl, duloxetine, Pepcid, Protonix, gabapentin; Zofran + Ativan have worked for nausea Liquid oxycodone 20mg q2h scheduled, fentanyl patch 75 mcg Dilaudid 0.5mg q2h PRN for pain -- OK to continue 0.25mg spot-dosing -Currently accepted for transfer to [place] for stoma revision to reduce pain: currently awaiting bed since 05/25 [facility] transfer number [phone] [facility] surgeon number [phone] Seizure-like activity -- 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 -Patient with multiple episodes of seizure-like activity which seem to be triggered by severe pain -Patient was evaluated in [facility] for these in March 2022 -- epilepsy was ruled out and suspected episodes were PNES vs vagal-related to pain - Past episodes in March causing bradycardia and unresponsiveness but never presented with postictal periods - More recent episodes with similar movements and unresponsiveness but no vital sign changes - Vitals remaining completely stable during current episodes and still shows no postictal period following them -Optimize pain control (as above). OK for spot dosing of Dilaudid with oncoming seizure -Continue seizure and fall precautions -PNES clinic - f/u with [facility] when appropriate Stoma Infection -- resolved -Had pseudomonas bacteremia in September of 2019 secondary to stoma infection -Early in course with swelling/bleeding/erythema around stoma site, with WCX demonstrating Enterococcus -- s/p ABX (Keflex, doxy, then cefdinir) -Stoma discharge mostly unchanged but now stable and non-infectious, still with episodes of moderate discharge TPN catheter occlusion -- resolved -Occurred 1/6 evening, likely lipid occlusion. Port replaced by Surgery. Now tolerating TPN well. Iron deficient anemia, chronic -Ferritin at 3.5 indicating severe iron deficient anemia -Discussed modalities of iron supplementation -Hemoglobin 7.5, transfusion if below 7 with symptoms -Continue to monitor CBC. Severe protein-calorie malnutrition -Secondary to extensive GI pathology. Back on TPN. Nutrition assistance ongoing. Adrenal insufficiency -Chronic; hemodynamically stable -Continue hydrocortisone, fludrocortisone - back at home dose FEN: Crackers, sips; TPN per pharmacy Code status: full code DVT ppx: SCDs Dispo: PCU. Currently pending transfer to [facility], accepted transfer and awaiting bed (2) Syncope: (3) Abdominal pain, chronic, generalized: (4) Adrenal insufficiency: (5) Chronic malnutrition: (6) Gastroparesis: (7) Gastrostomy tube in place: (8) Intestinal motility disorder: (9) Nausea and vomiting: (10) On total parenteral nutrition (TPN): (11) Severe protein-calorie malnutrition: (12) Iron deficiency anemia: Admission and Anticipated Discharge Date Admission Date: May 05, 2022 Supervising Physician Co-Signing Physician Notes Ipersonally examined the patient and verified all solorzano points of history and exam, discussed case, and agree with decision making with Dr Kelly pain still about the same, but after discussion of [id number] vs escalate, she would prefer to [id number] with meds. notes fullness that came up in the last day L middle / lower abdomen Vitals noted, in general she is very fatigued but no distress. HEENT normocephalic atraumatic mucous membranes moist. Breathing unlabored no accessory muscle use good effort. L mid/lower abdomen (~3cm distal/lateral to umbilicus) tender area of soft fullness, no hernia not a firm mass not a discrete area of fluctuance, but discreet area of sl "puffy" fullness noted Abdominal pain: Chronic generalized abdominal pain in the setting of multiple abdominal surgeries, complex GI history. Continue to titrate pain controlincreased fentanyl yesterday - continue current regimen/watchful waiting (on chart review, around 05/28 her fentanyl was reduced from 75 mcg to 50 mcg with thought that the additional was not helping that muchand it seems to be a day (maybe 2) later where her best guess as to the trend of worsening pain seems to have started to be noticeableto that end, while I do not suspect she is absorbing all of her transdermal fentanyl, I do see this is evidence that it is helping at least some); schedule dilauded HS to try to help w rest. anticipate ostomy revision likely to help some (although pt aware unlikely to "fix" her pain). US area of fullnes L mid/lower abdomen (late addendum - read as normal - so ongoing serial exams, vigilance) Chronic malnutrition: TPN - [facility] (dr morley) to assume responsibility after dc. eventual goal to titrate up tube feeds but right now not tolerating enough for nowon TPN. I suspect the bulk of her weight gain is just fluid retention. Discussed with patient and mom extensively. Seizure-like activity: Recent diagnosis of PNES by [facility] provider. Continue to monitor with supportive care. Is having prolonged EEG in future by [facility] provider. Episodes really seem to be provoked by painduring previous hospital stay they largely appear to be an amplified vagal response, now seem to largely be an amplified vagal trigger but then a PNES phenotype once the episode has started. Again appears to be predominantly/entirely pain driven, and while I doubt they will totally vanish with better pain control, I suspect they will improve significantly. Having been at her bedside through multiple of these episodes, other than (expected) tachycardia she is entirely stable further duration. Episodes do seem to wax and wane in frequency and intensity in line with overall pain control, continue to follow, treat pain GJ site cellulitis: resolved Adrenal insufficiency: Continue hydrocortisone, fludrocortisone. No stress dosing at this time. Anemia: chronic problem not at goal. Iron levels low here, has had iron infus ions in the past however has Hx intolerance to multiple iron formulas in the past and unfortunately her building superintendent gave them no direction given that she was admitted under our service.. Transfusion if Hgb <7. Continue B12 shots Dispo: Transfer to [place] for evaluation of ostomy, awaiting bed Subjective NAEO. No acute worsening of abdominal pain. Baseline appetite and nausea. No CP/palpitations/SOB. Review of Systems Review of Systems: as per HPI Physical Exam Physical Exam: General: 32-year old female who is alert, oriented, and appears in no acute distress. HEENT: NCAT. - Eyes - Sclera are white, anicteric, and without injection. - Mouth - MMM - Neck - supple, no appreciable JVD Cardiac: Normal rate and regular rhythm; S1 and S2 present with no murmurs, rubs, or gallops. Pulmonary: Good respiratory effort with symmetric expansion of the chest. No use of accessory muscles. Lungs were clear to auscultation bilaterally with no crackles or wheezes. Abdominal: Normoactive bowel sounds. Abdomen was soft, nondistended. Ostomy bag in place. Surgical scars noted c/d/i. Extremities: Upper and lower extremities are warm and well perfused. No peripheral edema in the lower extremities bilaterally Results & Data Results & Data ([facility]) Vital Signs (Past 12 Hours) Vital Signs Temp Pulse Resp BP BP Pulse Ox O2 Del Method 06/06/22 02:56 36.9 C 108 H 18 102/66 96 Room Air 06/05/22 23:14 36.8 C 121 H 17 114/75 95 Room Air 06/05/22 19:25 101 H 14 114/79 96 Room Air Resident Activity Tracking Resident Involvement: Resident Care Provided Care Provided: Adult Hospital Medicine
[2022-06-06] MEDS ORDERED: TPN/PPN CONSULT PHARMACY PRN (07:06)
[2022-06-06 07:25] LABS: Hematocrit (blood only) 24.1 % (34.1-44.9); Hemoglobin 7.2 g/dl (12.0-16.0); Mean Corpuscular Hemoglobin 25.9 pg (25.0-34.0); Mean Corpuscular Hgb Conc 29.9 g/dL (32.0-36.0); Mean Corpuscular Volume 86.7 fL (80.0-100.0); Platelet Count 259 K/uL (130-400); RDW Coefficient of Variation 14.3 % (11.5-14.5); RDW Standard Deviation 45.2 fL (36.4-46.3); Red Blood Count 2.78 M/uL (3.93-5.22); White Blood Count 5.32 K/ul (4.8-10.8)
[2022-06-06 08:25] LABS: Calcium 8.1 mg/dl (8.5-10.1); Magnesium 1.9 mg/dl (1.7-2.4); Potassium 3.8 mmol/L (3.5-5.1)
[2022-06-06 08:31] LABS: BUN Creatinine Ratio 26.2 (10-20); Creatinine Clr Calc Pharmacy 118.5 ml/min; Est GFR (African American) 138.1 ml/min; Est GFR (Non-African American) 119.1 ml/min; Phosphorus 4.3 mg/dl (2.5-4.9)
[2022-06-06] MEDS: HYOSCYAMINE SULFATE 0.125 MG TAB SL PRN (08:54)
[2022-06-06] MEDS: HYDROCORTISONE 10 MG TAB PO SCH ×2 (08:54→13:25)
[2022-06-06] MEDS: FAMOTIDINE 20 MG TAB PO SCH ×2 (08:55→21:54)
[2022-06-06] MEDS: FLUDROCORTISONE ACETATE 0.1 MG TAB PO SCH ×2 (08:55→21:55)
[2022-06-06] MEDS: PANTOprazole 40 MG TAB PO SCH (08:55)
[2022-06-06] MEDS: DULoxetine HCL 60 MG CAP PO SCH (08:55)
[2022-06-06] MEDS: POLYETHYLENE (MIRALAX) 17 GM PACK PO SCH (08:56)
[2022-06-06] MEDS: GABAPENTIN 250 MG/5 ML 470 ML BTL PO SCH ×3 (08:57→21:55)
[2022-06-06] MEDS ORDERED: HYDROmorphone INJ 0.5 MG/0.5 ML SYR IV STA (15:06)
--- NOTE | 2022-06-06 17:05 | Ultrasound Report ---
US abdomen limited CLINICAL HISTORY: Left-sided periumbilical swelling COMPARISON STUDY: Abdomen and pelvis CT 05/07/2022. FINDINGS: Real-time sonographic imaging of the left lower abdominal wall was performed with represent ative images submitted. No masses, fluid collections, lymphadenopathy, or hernia identified. IMPRESSION: No sonographic abnormality within the left lower quadrant abdominal wall at the patient' s area of interest. ACT 112: Negative or not required by law. Electronically signed by: Victor Hugo Snowden M.D. 06/06/2022 5:04 PM
--- NOTE | 2022-06-06 17:24 | Billing Data ---
Date of Service June 06, 2022 Coding Level of Care Code 25873 SUB INP/OBS CARE MIN
[2022-06-06] MEDS: ONDANSETRON INJ 2 MG/ML 2 ML VIAL IV SCH ×2 (18:44→23:40)
[2022-06-06] MEDS ORDERED: [UNRECOGNIZED DRUG - OTHER] IV SCH (21:00)
[2022-06-06] MEDS ORDERED: AMINO ACID 8% IV SCH (21:00)
[2022-06-06] MEDS ORDERED: CENTRAL TPN IV SCH (21:00)
[2022-06-06] MEDS: METHOCARBAMOL 750 MG TABLET PO PRN (21:54)
[2022-06-06] MEDS: HYDROmorphone INJ 0.5 MG/0.5 ML SYR IV SCH (21:56)
[2022-06-06] MEDS: MELATONIN 3 MG TAB PO PRN (22:01)
[2022-06-07] MEDS ORDERED: FAT EMUL/SOY/MCT/OLIV/FISH OIL 50 GM/250 ML BAG IV SCH
[2022-06-07] MEDS: CHECK fentaNYL PATCH PLACEMENT SCH ×2 (00:05→08:04)
[2022-06-07] MEDS: oxyCODONE INTENSOL 20 MG/1 ML UDP PO SCH ×5 (01:30→10:09)
[2022-06-07] MEDS: HYDROmorphone INJ 0.5 MG/0.5 ML SYR IV PRN ×5 (01:36→10:09)
[2022-06-07] MEDS: ONDANSETRON INJ 2 MG/ML 2 ML VIAL IV SCH (05:50)
--- NOTE | 2022-06-07 06:23 | Discharge Summary ---
Date of Service June 07, 2022 Admission HPI Per Admitting Provider Pilar Garcia is a 32yo female well known to the medical service presenting with seizure-like activity. Patient was at [facility] in February and had a partial colectomy. She has been having significant abdominal pain since. She has seizure-like episodes brought on by her abdominal pain. Recently diagnosed with PNES at [facility]. [facility]22 when she had an episode of unresponsiveness for which a Code Blue was called. She was hospitalized at [facility] from 04/08/22 and ultimately transferred to [facility] ICU. Mother states that patient has experienced seizures twice daily since returning home from [facility] on 04/24/22 - lasting anywhere from a couple seconds to 6 minutes. She has been having severe, twisting abdominal pain and increased air output from her ostomy. Patient's "seizure like" activity begins when her abdominal pain is severe. She loses consciousness then full body convulsions. HR increases to 160-170. No post-ictal confusion or incontinence. Tonight patient had a seizure at 0100 prior to arrival. She had one that lasted 2 minutes then another that lasted 2 minutes shortly after. Afterwards she sat straight up in excruciating abdominal pain and passed out. Her mom states that she regained consciousness then lost consciousness 6-8 more times. In the ER patient had several witnessed episodes of seizure-like activity assoc iated with decrease in oxygen level. Admission Exam Per Admitting Provider General: chronically ill in appearance, moaning in severe pain, mother answers questions for patient Skin: warm, dry, intact, no rashes or lesions HEENT: NC/AT, PERRL, EOMI, anicteric sclera, conjunctiva without injection, external ear normal to inspection and nontender, nares patent, moist mucus membranes, dentition intact, no oropharyngeal lesions, neck supple, trachea midline, no LAD, no thyromegaly, no JVD Heart: +S1/S2, regular, tachycardic, no m/r/g Lungs: equal air entry bilaterally, no rales/rhonchi/wheezes Abd: +BS, soft, diffusely tender, PEG tube in place, colostomy in place Ext: warm, 2+ pulses in UE/LE bilaterally, no clubbing/cyanosis or edema Neuro: nonfocal, patient AA&O x 4, speech intact, no facial droop, moving all extremities on command with equal strength 5/5 Principal Diagnosis Chronic generalized abdominal pain PNES Stoma infection Discharge Exam General: 32-year old female who is alert, oriented, and appears in no acute distress. HEENT: NCAT. - Eyes - Sclera are white, anicteric, and without injection. - Mouth - MMM - Neck - supple, no appreciable JVD Cardiac: Normal rate and regular rhythm; S1 and S2 present with no murmurs, rubs, or gallops. Pulmonary: Good respiratory effort with symmetric expansion of the chest. No use of accessory muscles. Lungs were clear to auscultation bilaterally with no crackles or wheezes. Abdominal: Normoactive bowel sounds. Band-like area of swelling immediately to the left of the umbilicus, mildly TTP. Ostomy bag in place. Surgical scars noted c/d/i. Extremities: Upper and lower extremities are warm and well perfused. No peripheral edema in the lower extremities bilaterally Discharge Data Allergies Allergy/AdvReac Type Severity Reaction Status Date / Time adhesive Allergy Severe Redness of Verified 05/29/22 09:14 Skin morphine Allergy Severe Severe Verified 05/29/22 09:14 abdominal Pain, sphincter of oddi spasms amoxicillin Allergy Intermediate RASH Verified 05/29/22 09:14 calcium Allergy Intermediate SEE COMMENT Verified 05/29/22 09:14 [From VIACTIV Multi-Vitamin] cefazolin Allergy Intermediate rash Verified 05/29/22 09:14 Cephalosporins Allergy Intermediate HIVES Verified 05/29/22 09:14 clavulanic acid Allergy Intermediate HIVES Verified 05/29/22 09:14 diphenhydramine Allergy Intermediate Anaphylaxis Verified 05/29/22 09:14 folic acid Allergy Intermediate SEE COMMENT Verified 05/29/22 09:14 [From VIACTIV Multi-Vitamin] iron [From Venofer] Allergy Intermediate Muscle Pain Verified 05/02/22 13:45 multivitamin with minerals Allergy Intermediate SEE COMMENT Verified 05/29/22 09:14 [From VIACTIV Multi-Vitamin] Penicillins Allergy Intermediate HIVES Verified 05/29/22 09:14 prochlorperazine Allergy Intermediate HIVES Verified 05/29/22 09:14 promethazine Allergy Intermediate hives, Verified 05/29/22 09:14 throat swelling sulfamethoxazole Allergy Intermediate RASH Verified 05/29/22 09:14 sumatriptan Allergy Intermediate RASH Verified 05/29/22 09:14 trimethoprim Allergy Intermediate RASH Verified 05/29/22 09:14 metoclopramide AdvReac Severe anxiety/ Verified 05/29/22 09:14 jittery erythromycin base AdvReac Intermediate GI SYMPTOMS Verified 05/29/22 09:14 citalopram [From Celexa] AdvReac Unknown CAN'T Verified 05/29/22 09:14 REMEMBER Consultations 05/05/22 05:24 ED Decision to Admit Stat 05/08/22 11:56 Consult Pain Management Routine 05/26/22 16:13 Consult General Surgery Routine Procedures Performed Operation Date: 05/29/22 10:00 Actual Procedures p Replacement of Infusaport Right Internal Jugular Vein(Right) - Leo Rodgers MD Ordered Studies 05/05/22 09:43 CT Abd and Pelvis [CT abd pelvis wo con] Routine 05/07/22 10:28 CT Abd and Pelvis [CT abd pelvis oral and IV con] Urgent FINDINGS: Trace bilateral pleural effusions with mild dependent changes within the lung bases. No pneumoperitoneum. No pneumatosis. No acute fractures identified. A percutaneous gastrojejunostomy tube is in good position. Oral contrast is seen throughout the majority of the small bowel. Patient is status post subtotal colectomy with a right lower quadrant ileostomy. No dilated loops of bowel to suggest an obstruction. Mild thickening and adjacent fat stranding at the distal stomach has slightly improved. No additional areas of bowel wall thickening identified. No evidence for a bowel obstruction. Prior hysterectomy. The ovaries are normal. The bladder is unremarkable. No significant pelvic free fluid. No pelvic lymphadenopathy. Normal caliber abdominal aorta. No retroperitoneal lymphadenopathy. The main portal vein is patent. Chol ecystectomy. The liver, spleen, kidneys, pancreas, and adrenal glands unremarkable. Stable prominence of the common bile duct likely due to the patient's postcholecystectomy state. IMPRESSION: 1. Slight improvement in the mild thickening and adjacent fat stranding at the distal stomach. 2. No evidence for bowel obstruction. 3. Trace bilateral pleural effusions. 4. A gastrojejunostomy tube appears in good position. 05/27/22 09:03 FL a-port check Urgent 05/29/22 10:00 FL fluoro (infusaport) to 1 hr Routine 06/06/22 13:33 US abdomen limited Routine CLINICAL HISTORY: Left-sided periumbilical swelling COMPARISON STUDY: Abdomen and pelvis CT 05/07/2022. FINDINGS: Real-time sonographic imaging of the left lower abdominal wall was performed with wireless sales representative images submitted. No masses, fluid collections, lymphadenopathy, or hernia identified. IMPRESSION: No sonographic abnormality within the left lower quadrant abdominal wall at the patient's area of interest. Hospital Course (1) Seizure-like activity: 32yo female a complex PMH including gastroparesis, SMA syndrome, ileostomy placement, G-tube placement (on TPN), and adrenal insufficiency presents after multiple episodes of seizure-like activity at home, as well as with intractable abdominal pain and nausea. Chronic generalized abdominal pain in context of multiple abdominal surgeries, complex GI history -Patient with very extensive GI history including gastroparesis and multiple abdominal surgeries -Suspect multifactorial: postsurgical/traction related from G-J tube movement/stoma-related, functional, previously infectious, ?ulcer -Triggers for patient's pain seems related to peristalsis and moving G-J tube or ostomy site. May likely be caused by adhesional traction of stoma. -CT-A/Ps (05/06-) while here demonstrated stranding adjacent to distal stomach, improved on subsequent scans -Pain regimen: Agreed by from Pain Management Continue Bentyl, duloxetine, Pepcid, Protonix, gabapentin Zofran + Ativan have worked for nausea Liquid oxycodone 20mg q2h scheduled, fentanyl patch 75 mcg Dilaudid 0.5mg q2h PRN and HS ([facility] [place]) for pain -- 0.25mg spot-dosing for breakthrough effective -Accepted for transfer to [place] for stoma revision to reduce pain PNES -- triggered by pain w/ superimposed vagal component -Patient with multiple episodes of seizure-like activity which seem to be triggered by severe pain; these continued to have a PNES-like appearance throughout admission -Patient was evaluated in [facility] for these in March 2022 -- epilepsy was ruled out and suspected episodes were PNES vs vagal-related to pain - Past episodes in March causing bradycardia and unresponsiveness but never presented with postictal periods - More recent episodes with similar movements and unresponsiveness but no vital sign changes - Vitals remaining completely stable during current episodes and still shows no postictal period following them -Optimize pain control (as above). Spot dosing of Dilaudid for oncoming seizures was effective. -PNES clinic - f/u with [facility] for prolonged EEG when appropriate Stoma-site Cellulitis -- clinically resolved -Had pseudomonas bacteremia in September of 2019 secondary to stoma infection -Early in course with swelling/bleeding/erythema around stoma site, with WCX demonstrating Enterococcus -- s/p ABX (Keflex, doxy, then cefdinir) -Stoma discharge mostly unchanged but now stable and non-infectious, still with episodes of moderate discharge TPN catheter occlusion -- resolved -Occurred 05/23 evening, likely lipid occlusion. Port replaced by Surgery. Now tolerating TPN well. -[facility] (Dr Morley) to assume responsibility after d/c Iron deficient anemia, chronic -Ferritin at 3.5 indicating severe iron deficient anemia -Discussed modalities of iron supplementation -Hemoglobin 7.5, transfusion if below 7 with symptoms -Continue to monitor CBC. Severe protein-calorie malnutrition -Secondary to extensive GI pathology. Back on TPN. Nutrition assistance ongoing. Adrenal insufficiency -Chronic; hemodynamically stable -Continue hydrocortisone, fludrocortisone - back at home dose Code: Full code (2) Syncope: (3) Abdominal pain, chronic, generalized: (4) Adrenal insufficiency: (5) Chronic malnutrition: (6) Gastroparesis: (7) Gastrostomy tube in place: (8) Intestinal motility disorder: (9) Nausea and vomiting: (10) On total parenteral nutrition (TPN): (11) Severe protein-calorie malnutrition: (12) Iron deficiency anemia: Total Time Total Time Spent Total Time Spent (In Minutes): <30 Discharge Plan Discharge Items Patient Disposition: Transfer Acute Care Hospital Reason For Visit: ABD PAIN, SIEZURE ACTIVITY Discharge Diagnosis: abdominal pain Condition on Discharge: Fair Activity: Resume your previous activity Non-emergency contact: Primary Care Provider and Surgeon Call non-emergency contact if: you have any medication questions, your symptoms worsen and your pain is not controlled Follow-up/Referrals: Mariah Addison DO [Primary Care Provider] - Jennifer Rust M.D. [Outside Practitioners] - 05/22/22 3:20 pm (Tele- Visit) Diet: Regular and Clear liquid Addtl Attending Provider Instructions: Abdominal painappears to be multifactorial, but strongly suspect ostomy issues, and/or adhesions driving some of the uncontrolled acuity. Appreciate surgical evaluation at tertiary care. Given that her pain was intolerable, and driving in existence incompatible with life outside hospital, we were working towards more of a chronic pain management plan which her PCP can then manage after discharge if it needs to be continued (I personally discussed this with her PCP earlier in the current hospital stay)at the same time, if revision of ostomy (and/or lysis of adhesions) leads to significant improvement in pain, patient has expressed a clear desire to try to wean pain meds to as little as possible Nutritionall are in agreement that tube feeds would be a safer/better option overall (including the patient), but she has not been able to tolerate more than may be 50% of her tube feeds despite trying over the last few months. To that end, after extensive discussions, we saw no option more viable than resuming TPN (given that a loss of nutritional status would likely lead to ear provokable harm, far more predictably than the possible harms from the TPN), and have her established with a physician locally who will manage the TPN. Much like with the pain, patient would prefer to be on tube feeds if she could tolerate them, but does not want to have a worsening malnutrition if she cannot. PNES episodeshaving been her primary hospitalist for much of her last 2 admissions at our facility, I have firsthand witnessed several of these episodes. They generally appear to be provoked by a spike of pain. Initially the episodes (last admission) appeared exceedingly vagal in how she would turn pale and be unresponsive, and anything seizure-like at all appeared predominantly to be myoclonic jerks. During this admission, clearly the episodes have evolved to be consistent with a PNES phenotype, and yet, at the same time, have been witnessed several of these during this admissionthey, too, appear to be predominantly driven by a spike in pain. attached med list is reflective of medications prior to current admission; MAR will be reflective of current medications ---- 32yo female a complex PMH including gastroparesis, SMA syndrome, ileostomy pl acement, G-tube placement (on TPN), and adrenal insufficiency presents after multiple episodes of seizure-like activity at home, as well as with intractable abdominal pain and nausea. Chronic generalized abdominal pain in context of multiple abdominal surgeries, complex GI history -Patient with very extensive GI history including gastroparesis and multiple abdominal surgeries -Suspect multifactorial: postsurgical/traction related from G-J tube movement/stoma-related, functional, previously infectious, ?ulcer -Triggers for patient's pain seems related to peristalsis and moving G-J tube or ostomy site. May likely be caused by adhesional traction of stoma. -CT-A/Ps (05/06-) while here demonstrated stranding adjacent to distal stomach, improved on subsequent scans -Pain regimen: Agreed by from Pain Management Continue Bentyl, duloxetine, Pepcid, Protonix, gabapentin Zofran + Ativan have worked for nausea Liquid oxycodone 20mg q2h scheduled, fentanyl patch 75 mcg Dilaudid 0.5mg q2h PRN and HS ([facility] [place]) for pain -- 0.25mg spot-dosing for breakthrough effective -Accepted for transfer to [place] for stoma revision to reduce pain PNES -- triggered by pain w/ superimposed vagal component -Patient with multiple episodes of seizure-like activity which seem to be triggered by severe pain; these continued to have a PNES-like appearance throughout admission -Patient was evaluated in [facility] for these in March 2022 -- epilepsy was ruled out and suspected episodes were PNES vs vagal-related to pain - Past episodes in March causing bradycardia and unresponsiveness but never presented with postictal periods - More recent episodes with similar movements and unresponsiveness but no vital sign changes - Vitals remaining completely stable during current episodes and still shows no postictal period following them -Optimize pain control (as above). Spot dosing of Dilaudid for oncoming seizures was effective. -PNES clinic - f/u with [facility] for prolonged EEG when appropriate Stoma-site Cellulitis -- clinically resolved -Had pseudomonas bacteremia in September of 2019 secondary to stoma infection -Early in course with swelling/bleeding/erythema around stoma site, with WCX demonstrating Enterococcus -- s/p ABX (Keflex, doxy, then cefdinir) -Stoma discharge mostly unchanged but now stable and non-infectious, still with episodes of moderate discharge TPN catheter occlusion -- resolved -Occurred 1/6 evening, likely lipid occlusion. Port replaced by Surgery. Now tolerating TPN well. -[facility] (Dr Morley) to assume responsibility after d/c Iron deficient anemia, chronic -Ferritin at 3.5 indicating severe iron deficient anemia -Discussed modalities of iron supplementation -Hemoglobin 7.5, transfusion if below 7 with symptoms -Continue to monitor CBC. Severe protein-calorie malnutrition -Secondary to extensive GI pathology. Back on TPN. Nutrition assistance ongoing. Adrenal insufficiency -Chronic; hemodynamically stable -Continue hydrocortisone, fludrocortisone - back at home dose Code: Full code Pending Studies at Discharge: No Stand-Alone Forms: My [facility] Skilled Items Patient informed of condition?: Yes DNR: No Discharge Level of Care: Other Communicable Disease: No Discharge Prognosis: Other Lines: US Guided Peripheral IV Urinary Catheter: No Medications and DC Order Prescriptions: Continued famotidine 40 mg tablet 20 mg PO BID Rx Instructions: 1/2 tablet dose ondansetron 4 mg tablet,disintegrating 4 mg translingual Q6H PRN (Reason: Nausea) Rx Instructions: can also have iv hydrocortisone 10 mg tablet 10 - 15 mg PO BID Rx Instructions: TAKE 15 MG EVERY MORNING AND 10 MG EVERY AFTERNOON trimethobenzamide 300 mg Capsule 300 mg PO Q6H PRN (Reason: Nausea And Vomiting) hyoscyamine sulfate [Levsin/SL] 0.125 mg Tablet, Sublingual 0.125 mg SUBLINGUAL Q4H PRN (Reason: Abdominal Cramping) dicyclomine 10 mg Capsule 10 - 20 mg PO Q6H PRN (Reason: Abdominal Pain) pantoprazole [Protonix] 40 mg tablet,delayed release (DR/EC) 40 mg PO QAM lorazepam [Ativan] 2 mg/mL Solution 0.5 mg buccal QID PRN (Reason: Nausea) Rx Instructions: DIRECTED 0.5 MG (0.25 ML) gabapentin 250 mg/5 mL solution 300 mg PO TID Rx Instructions: 6 ml po TID fexofenadine 180 mg Tablet 180 mg PO PM hydromorphone 1 mg/mL Liquid 2 mg PO Q4H PRN (Reason: Pain) Rx Instructions: 2-4mg po q 4 hours as needed methocarbamol 750 mg Tablet 750 mg PO Q8H PRN (Reason: MUSCLE SPASMS) cholecalciferol (vitamin D3) [Vitamin D3] 25 mcg (1,000 unit) Capsule 50 mcg PO DAILY duloxetine 60 mg capsule,delayed release(DR/EC) 60 mg PO DAILY fludrocortisone 0.1 mg tablet See Rx Instructions .ROUTE .COMPLEX Rx Instructions: 0.1 mg orally ;Take 0.2mg(2 tab)in the AMTake 0.1mg(1 tab) in the PM acetaminophen [Tylenol Extra Strength] 500 mg Tablet 1,000 mg PO Q6H PRN (Reason: Pain) coenzyme Q10 [CoQ-10] 100 mg Capsule 0 mg PO PM Rx Instructions: Takes 1 tab daily UNKNOWN STRENGTH Multivitamin Gummies 200 mcg Tablet,Chewable 2 tab PO PM turmeric 400 mg Capsule 400 mg PO PM Rx Instructions: Takces 1 cap daily (DME) Enema Bottle Bottle See Rx Instructions .Route Qty: 72 0RF Rx Instructions: As directed Discharge Orders: Discharge Order (Routine); Ordered 05/25/22 Ordered By: Yadira Velazquez Admission Data Admit Date/Time: 05/05/22 06:10 Attending Provider: Ramses Layne Admit Provider: Viridiana Shrama Primary Care Provider: Mariah Addison Other Providers: David Urban ; Brian Connelly ; Viridiana Sharma ; Trent Givens ; Mariama Pearson ; Jose De Jesus Hawkins ; Lupe Rubio ; Ramses Murcia ; Leo Rodgers. ; Catrina Turner Other Interventions: Discharge Summary Assessment (RN) Last Done: 06/07/22 11:12 Supervising Physician Co-Signing Physician Notes Ipersonally examined the patient and verified all solorzano points of history and exam, discussed case, and agree with decision making with Dr Robin Gaytan about the same. has a bed at [place] Vitals noted, in general she is very fatigued but no distress. HEENT normocephalic atraumatic mucous membranes moist. Breathing unlabored no accessory muscle use good effort. Skin with current state of pallor, no icterus. Abdominal pain: Chronic generalized abdominal pain in the setting of multiple abdominal surgeries, complex GI history. Continue to titrate pain controlincreased fentanyl yesterday - continue current regimen/watchful waiting (on chart review, around 05/28 her fentanyl was reduced from 75 mcg to 50 mcg with thought that the additional was not helping that muchand it seems to be a day (maybe 2) later where her best guess as to the trend of worsening pain seems to have started to be noticeableto that end, while I do not suspect she is absorbing all of her transdermal fentanyl, I do see this is evidence that it is helping at least some); schedule dilauded HS to try to help w rest. anticipate ostomy revision likely to help some (although pt aware unlikely to "fix" her pain). Chronic malnutrition: TPN - [facility] (dr morley) to assume responsibility after dc. eventual goal to titrate up tube feeds but right now not tolerating enough for nowon TPN. I suspect the bulk of her weight gain is just fluid retention. Discussed with patient and mom extensively. Seizure-like activity: Recent diagnosis of PNES by [facility] provider. Continue to monitor with supportive care. Is having prolonged EEG in future by [facility] provider. Episodes really seem to be provoked by painduring previous hospital stay they largely appear to be an amplified vagal response, now seem to largely be an amplified vagal trigger but then a PNES phenotype once the episode has started. Again appears to be predominantly/entirely pain driven, and while I doubt they will totally vanish with better pain control, I suspect they will improve significantly. Having been at her bedside through multiple of these episodes, other than (expected) tachycardia she is entirely stable further duration. Episodes do seem to wax and wane in frequency and intensity in line with overall pain control, continue to follow, treat pain GJ site cellulitis: resolved Adrenal insufficiency: Continue hydrocortisone, fludrocortisone. No stress dosing at this time. Anemia: chronic problem not at goal. Iron levels low here, has had iron infusions in the past however has Hx intolerance to multiple iron formulas in the past and unfortunately her coal passer gave them no direction given that she was admitted under our service.. Transfusion if Hgb <7. Continue B12 shots Dispo: Transfer to [place] for evaluation of ostomy, bed today Resident Activity Tracking Resident Involvement: Resident Care Provided Care Provided: Adult Hospital Medicine
[2022-06-07 08:07] LABS: Hematocrit (blood only) 23.6 % (34.1-44.9); Hemoglobin 7.3 g/dl (12.0-16.0); Mean Corpuscular Hemoglobin 26.1 pg (25.0-34.0); Mean Corpuscular Hgb Conc 30.9 g/dL (32.0-36.0); Mean Corpuscular Volume 84.3 fL (80.0-100.0); Mean Platelet Volume 11.1 fL (9.4-12.3); Platelet Count 339 K/uL (130-400); RDW Coefficient of Variation 14.4 % (11.5-14.5); RDW Standard Deviation 44.8 fL (36.4-46.3); White Blood Count 5.24 K/ul (4.8-10.8)
[2022-06-07] MEDS ORDERED: HYDROmorphone INJ 0.5 MG/0.5 ML SYR IV PRN (09:00)
[2022-06-07] MEDS: DICYCLOMINE HCL 10 MG CAP PO PRN (09:13)
[2022-06-07] MEDS: FAMOTIDINE 20 MG TAB PO SCH (09:13)
[2022-06-07] MEDS: HYOSCYAMINE SULFATE 0.125 MG TAB SL PRN (09:14)
[2022-06-07] MEDS: DULoxetine HCL 60 MG CAP PO SCH (09:14)
[2022-06-07] MEDS: HYDROCORTISONE 10 MG TAB PO SCH (09:14)
[2022-06-07] MEDS: PANTOprazole 40 MG TAB PO SCH (09:14)
[2022-06-07] MEDS: FLUDROCORTISONE ACETATE 0.1 MG TAB PO SCH (09:15)
[2022-06-07] MEDS: POLYETHYLENE (MIRALAX) 17 GM PACK PO SCH (09:15)
[2022-06-07] MEDS: GABAPENTIN 250 MG/5 ML 470 ML BTL PO SCH (09:22)
[2022-06-07] MEDS ORDERED: HYDROmorphone INJ 1 MG/ML SYRINGE IV STA (11:06)
[2022-06-07] MEDS: LORazepam 1 mg IV INJ IV PRN (11:53)
--- NOTE | 2022-06-07 18:19 | Billing Data ---
Date of Service June 07, 2022 Coding Level of Care Code HOSP INP/OBS DISCH 30 MIN/LESS
== END 2022-06-07 12:39 | disposition short-term general hospital (02) | DRG 393 ==
LOC: ED 04:06 → 2S 06:10 → SUATTDRO 06:10 → 2S 08:50 → 2E 05-19 15:49
DX: Z90.49 Acquired absence of other specified parts of digestive tract; K31.84 Gastroparesis; T82.594A Other mechanical complication of infusion catheter, initial encounter; K59.9 Functional intestinal disorder, unspecified; E83.51 Hypocalcemia; Y92.009 Unspecified place in unspecified non-institutional (private) residence as the place of occurrence of the external cause; K66.0 Peritoneal adhesions (postprocedural) (postinfection); L03.818 Cellulitis of other sites; K94.12 Enterostomy infection; E43 Unspecified severe protein-calorie malnutrition; Z93.2 Ileostomy status; E87.5 Hyperkalemia; K55.1 Chronic vascular disorders of intestine; Z88.5 Allergy status to narcotic agent; Z88.0 Allergy status to penicillin; G89.29 Other chronic pain; F44.5 Conversion disorder with seizures or convulsions; U07.1 COVID-19; Z88.2 Allergy status to sulfonamides; Z88.1 Allergy status to other antibiotic agents; Y83.3 Surgical operation with formation of external stoma as the cause of abnormal reaction of the patient, or of later complication, without mention of misadventure at the time of the procedure; E27.40 Unspecified adrenocortical insufficiency; B95.2 Enterococcus as the cause of diseases classified elsewhere; Y73.2 Prosthetic and other implants, materials and accessory gastroenterology and urology devices associated with adverse incidents; Z95.828 Presence of other vascular implants and grafts; R10.84 Generalized abdominal pain

== ENCOUNTER 2022-10-06 16:48 | Inpatient (IN) ==
[2022-10-06] MEDS ORDERED: SODIUM CHLORIDE 0.9% 1000ML 1,000 ML IV SCH ×2 (17:00→22:43)
--- NOTE | 2022-10-06 17:00 | ED Triage Note ---
Date of Service October 06, 2022 History of Present Illness This patient was briefly evaluated while in triage. An abbreviated physical exam was performed. This patient is a 32-year-old Female who presents to the ED for evaluation of increasing seizures, mom reports she has had 6 today and the last was around 4pm while they were at the Dr. office. Not on seizure medications. Mom reports they are nonepileptic seizures and are brought on by pain. No falls or suspected injuries from the seizures, she denies a headache. Has had increased abd pain since yesterday. Vomiting, no blood, able to keep meds down. She states her ostomy output has been decreased. No fevers. Mom states Dr wants her to be admitted for pain meds and fluids. Physical Exam CONSTITUTIONAL: No acute distress. HEENT: Nontraumatic. NECK: Nontender RESPIRATORY: Clear to auscultation bilaterally. Equal expansion bilaterally. CARDIOVASCULAR: Regular rate and rhythm with no murmurs, rubs or gallops. Normal peripheral perfusion. GASTROINTESTINAL: Soft NEUROLOGIC: Alert and oriented X 4 with normal affect. Initial orders for labs and / or imaging were placed and patient was placed in the waiting area until a bed is available. Please see further documentation for the full ED course.
[2022-10-06 18:08] LABS: Basophils # (auto) 0.04 K/uL (0-0.2); Basophils % (auto) 0.6 %; Eosinophils # (auto) 0.05 K/uL (0-0.50); Eosinophils % (auto) 0.7 %; Hematocrit (blood only) 37.1 % (37.0-47.0); Hemoglobin 11.9 g/dl (12.0-16.0); Immature Granulocytes # (auto) 0.02 K/uL (0.01-0.20); Immature Granulocytes % (auto) 0.3 %; Lymphocytes # (auto) 1.59 K/uL (1.2-3.4); Lymphocytes % (auto) 22.1 %; Mean Corpuscular Hgb Conc 32.1 g/dL (32.0-36.0); Mean Corpuscular Volume 84.1 fL (80.0-100.0); Mean Platelet Volume 10.4 fL (9.4-12.4); Monocytes # (auto) 0.59 K/uL (0.11-0.59); Monocytes % (auto) 8.2 %; Neutrophils # (auto) 4.89 K/uL (1.40-6.50); Neutrophils % (auto) 68.1 %; Platelet Count 265 K/uL (130-400); RDW Coefficient of Variation 18.8 % (11.5-14.5); RDW Standard Deviation 57.6 fL (36.4-46.3); Red Blood Count 4.41 M/uL (4.20-5.40); White Blood Count 7.18 K/ul (4.8-10.8)
[2022-10-06 18:31] LABS: Partial Thromboplastin Ratio 0.9; Partial Thromboplastin Time 26.4 Seconds (21.0-31.0)
[2022-10-06] MEDS ORDERED: ONDANSETRON INJ 2 MG/ML 2 ML VIAL IV STA (18:31)
[2022-10-06] MEDS ORDERED: HYDROmorphone INJ 0.5 MG/0.5 ML SYR IV STA ×2 (18:31→20:13)
[2022-10-06] MEDS ORDERED: SODIUM CHLORIDE 0.9% 1000ML 1,000 ML IV ONE (18:31)
[2022-10-06 18:34] LABS: Alanine Aminotransferase 12 U/L (7-52); Albumin Globulin Ratio 1.8 (0.9-2); Albumin Level 4.1 gm/dl (3.4-5.0); Alkaline Phosphatase 81 U/L (34-104); Anion Gap 7 (3-11); Aspartate Aminotransferase 16 U/L (13-39); BUN Creatinine Ratio 7.6 (10-20); Bilirubin,Total 0.3 mg/dl (0.2-1.0); Blood Urea Nitrogen 5 mg/dl (6-23); Calcium 8.9 mg/dl (8.6-10.3); Carbon Dioxide 27 mmol/L (21-32); Chloride 107 mmol/L (98-107); Est GFR (African American) 137.4 ml/min; Est GFR (Non-African American) 118.5 ml/min; Globulin 2.3 gm/dl (2.5-4.0); Glucose 86 mg/dl (70-99(Fasting)); Lipase 22 U/L (11-82); Potassium 3.5 mmol/L (3.5-5.1); Sodium 141 mmol/L (136-145); Total Protein 6.4 gm/dl (6.0-8.3)
--- NOTE | 2022-10-06 18:34 | Emergency Department Note ---
Impression & Plan Intractable abdominal pain ED Provider Note HISTORY OF PRESENT ILLNESS: Patient is a 32-year-old female presenting with abdominal pain, nausea and recurrent seizures. Mother provides most of history. 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 Reports that the patient has been having excruciating lower abdominal pain throughout today and has had 7 seizures so far. She called her primary care provider and was referred to the emergency department, as she was unable to be directly admitted for pain control at that time. She has been nauseous and had a few episodes of vomiting. Reports she had decreased ostomy output. Denies any fevers. Denies any chest pain or shortness of breath. Denies any dysuria or hematuria. ROS: as above PHYSICAL EXAM: Constitutional: Patient appears in no acute distress. Patient is curled in the position HENT: Head: Normocephalic and atraumatic. Eyes: EOMI, PERRL Mouth/Throat: Mucous membranes moist. Neck: Trachea midline. Neck supple. Cardiovascular: RRR, No murmurs, rubs or gallops. Intact distal pulses. Pulmonary/Chest: No respiratory distress. Breath sounds clear and equal bilaterally. No wheezes or rales. Abdominal: BS +. Abdomen soft, no rebound or guarding. Diffusely tender across her lower abdomen. Ileostomy in place in the right lower quadrant. Musculoskeletal: No edema, tenderness or deformity noted. Skin: Warm and dry. No rash, erythema, pallor or cyanosis Psychiatric: Appropriate mood and affect for situation. Neurological: Alert and keenly responsive. CN II-XII grossly intact, moving all extremities equally and fully. MDM: - Vitals signs showed tachycardia. - History obtained via patient and patient's mother. Patient presents with abdominal pain, nausea and recurrent seizures. Patient reportedly has been having significant lower abdominal pain throughout the day and has had 7 seizures secondary to her pain. Denies any fevers. She was referred to the emergency department for further evaluation. She has been nauseous and has had a few episodes of vomiting. Denies any chest pain or shortness of breath. - Chronic conditions affecting care: intussusception; sphincter of Oddi dysfunction - Differential diagnoses include, but are not limited to: appendicitis; diverticulitis; ovarian cyst; ovarian torsion; ureteral calculi; UTI - Order placed for continuous cardiac monitoring. At this time, monitor showed rate of 95 bpm with normal sinus rhythm, per my interpretation. - External medical records reviewed. Discharge summary from the hospital from 06/07/2022 was reviewed. Patient has recurrent seizure-like activity. She is supposed to be followed in [facility] later this year. - Laboratory workup interpreted by myself showed normal WBC; stable electrolytes; normal creatinine; normal lipase; normal liver function - CXR negative for pneumonia, per my interpretation - CT head wo contrast ordered as part of triage protocols. Negative for acute intracranial pathology - CT abdomen/pelvis with IV contrast showed mild bladder wall thickening. Noted to have small amount of fluid at the umbilicus with multiple small bowel loops abutting the anterior abdominal wall. Concern for possible underlying quiroga bcutaneous fistula. - Patient given 1L NS, 0.25 mg IV dilaudid and 4 mg IV morhpine in ER. On reass essment, patient is still complaining of significant pain - Discussion was had with adoption social worker about patient's case and need for admission. - Hospitalist, Dr. Kumar, consulted for admission. - Patient admitted to [facility] for further evaluation and management. ASSESSMENT AND PLAN: Diagnosis: intractable abdominal pain Plan: admit Past Med/Surg History Medical History Asthma Chronic migraine Colitis Diversion colitis Elevated lipase Endometriosis has had 3 surgeries for this. Last surgery [address] Hemorrhagic cystitis Hypotension Intussusception Pancreatitis PICC (peripherally inserted central catheter) in place TPN SMAS (superior mesenteric artery syndrome) History of SMAS SMAS (superior mesenteric artery syndrome) Sphincter of Oddi dysfunction DECREASED GI MOTILITY Transaminitis Uses feeding tube gastroparesis and decreased GI motility can not tolerate feeding and uses TPN UTI (urinary tract infection) Surgical History H/O adenoidectomy H/O laparoscopy H/O lumpectomy right breast 2011 History of appendectomy History of bowel resection Part of duodenum removed due to necrosis; done at [facility] 2019 History of hysterectomy 09/27/19 History of removal of Port-a-Cath 10/13/[address] Geiger, [facility], due to bacteremia/sepsis. History of vascular access device 2017 Hx of colonoscopy during procedure perforated small bowel 10/27/2019 at [facility], subsequent repair of duodenal area. Hx of ileostomy Hx of tonsillectomy S/P cholecystectomy 2015 S/P wrist surgery right Family History Father Hyperlipidemia Other No significant family history Social History Smoking Status: Unknown if ever smoked Second Hand Exposure: No; Do You Dip or Chew Tobacco: No; Hx Alcohol Use: No Hx Substance Use: No Preferred Language: Serbian Communication Ability: Effective Visual Impairment: No Limitations Hearing Ability: Normal Manager Library Required: No Beliefs That Will Affect Care: None marital status: Single Current Living Situation: Parent and Family Current Living Situation Comment: Lives with family. current occupational status: unemployed current occupation: completed 4-year degree at [employer] How many Children do You have: 0 Feels Safe at Home: Yes Diet: regular Sexual Activity Comment: not sexually active Assistive Devices: None Allergies Allergies Allergy/AdvReac Type Severity Reaction Status Date / Time diphenhydramine Allergy Severe Anaphylaxis Verified 09/26/22 14:10 promethazine Allergy Severe hives, Verified 09/26/22 14:10 throat swelling adhesive Allergy Intermediate Redness of Verified 09/26/22 14:10 Skin amoxicillin Allergy Intermediate RASH Verified 09/26/22 14:10 calcium Allergy Intermediate SEE COMMENT Verified 09/26/22 14:10 [From VIACTIV Multi-Vitamin] cefazolin Allergy Intermediate rash Verified 09/26/22 14:10 Cephalosporins Allergy Intermediate HIVES Verified 09/26/22 14:10 clavulanic acid Allergy Intermediate HIVES Verified 09/26/22 14:10 ferric carboxymaltose Allergy Intermediate Rash Verified 09/26/22 14:10 [From Injectafer] folic acid Allergy Intermediate SEE COMMENT Verified 09/26/22 14:10 [From VIACTIV Multi-Vitamin] iron [From Venofer] Allergy Intermediate Muscle Pain Verified 09/26/22 14:10 multivitamin with minerals Allergy Intermediate SEE COMMENT Verified 09/26/22 14:10 [From VIACTIV Multi-Vitamin] Penicillins Allergy Intermediate HIVES Verified 09/26/22 14:10 prochlorperazine Allergy Intermediate HIVES Verified 09/26/22 14:10 sulfamethoxazole Allergy Intermediate RASH Verified 09/26/22 14:10 sumatriptan Allergy Intermediate RASH Verified 09/26/22 14:10 trimethoprim Allergy Intermediate RASH Verified 09/26/22 14:10 metoclopramide AdvReac Severe anxiety/ Verified 09/26/22 14:10 jittery morphine AdvReac Severe Severe Verified 09/26/22 14:10 abdominal Pain, sphincter of oddi spasms erythromycin base AdvReac Intermediate GI SYMPTOMS Verified 09/26/22 14:10 citalopram [From Celexa] AdvReac Unknown CAN'T Verified 09/26/22 14:10 REMEMBER Home Meds Home Medications Medication Instructions Recorded Confirmed dicyclomine 10 mg capsule 10 - 20 mg PO Q6H PRN Abdominal 03/07/18 10/06/22 Pain pantoprazole 40 mg tablet,delayed 40 mg PO QAM 09/08/19 10/06/22 release (Protonix) famotidine 40 mg tablet 20 mg PO BID 11/28/19 10/06/22 lorazepam 2 mg/mL injection 0.5 mg buccal QID PRN Nausea 12/05/19 10/06/22 solution (Ativan) hydrocortisone 10 mg tablet 10 - 15 mg PO BID 02/07/20 10/06/22 fexofenadine 180 mg tablet 180 mg PO PM 10/09/20 10/06/22 gabapentin 250 mg/5 mL oral 300 mg PO TID 10/09/20 10/06/22 solution fludrocortisone 0.1 mg tablet 0.1 mg PO BID 12/12/20 10/06/22 acetaminophen 500 mg tablet 1,000 mg PO Q6H PRN Pain 06/13/21 10/06/22 (Tylenol Extra Strength) multivitamin with minerals-folic 2 tab PO PM 06/13/21 10/06/22 acid 200 mcg chewable tablet (Multivitamin Gummies) turmeric 400 mg capsule 400 mg PO PM 06/13/21 10/06/22 hydromorphone 1 mg/mL oral liquid 4 mg PO Q4H PRN Pain 04/01/22 10/06/22 cholecalciferol (vitamin D3) 25 50 mcg PO DAILY 04/07/22 10/06/22 mcg (1,000 unit) capsule (Vitamin D3) duloxetine 60 mg capsule,delayed 60 mg PO DAILY 04/07/22 10/06/22 release methocarbamol 750 mg tablet 750 mg PO TID 04/07/22 10/06/22 coenzyme Q10 100 mg capsule 100 mg PO PM 07/22/22 10/06/22 (CoQ-10) pyridoxine (vitamin B6) 50 mg 50 mg PO DAILY 07/22/22 10/06/22 tablet fentanyl 25 mcg/hr transdermal 1 patch transdermal Q72H 09/01/22 10/06/22 patch ondansetron 8 mg disintegrating 8 mg PO TID PRN Nausea 10/06/22 10/06/22 tablet Previous Rx's Medication Instructions Recorded empty container (Enema Misc Bottle) #72 ea 01/16/22 Results & Data (ED) Vital Signs Vital Signs - 24 hr 10/06/22 16:54 10/06/22 19:00 Temperature 36.8 C Temperature Source Temporal Artery Scan Pulse Rate 108 H Pulse Rate [Finger] 96 H Pulse Rhythm Regular Respiratory Rate 20 18 Respiratory Effort / Characteristics Non-Labored Spontaneous Respiratory Depth Normal Blood Pressure 112/78 Blood Pressure [Right Arm] 101/63 Blood Pressure Mean 89 Blood Pressure Mean [Right Arm] 75 Pulse Oximetry 98 99 Oxygen Delivery Method Room Air Sepsis Recent Fever Within 48 Hours No Sepsis New/Unexplained Change in Mental Status N/A Sepsis Action Taken by Nursing No Action Required Laboratory Data 10/06/22 17:57 10/06/22 17:57 Lab Results 10/06/22 10/06/22 10/06/22 Range/Units 17:57 17:57 17:57 WBC 7.18 (4.8-10.8) K/ul RBC 4.41 (4.20-5.40) M/uL Hgb 11.9 L (12.0-16.0) g/dl Hct 37.1 (37.0-47.0) % MCV 84.1 (80.0-100.0) fL MCH 27.0 (25.0-34.0) pg MCHC 32.1 (32.0-36.0) g/dL RDW Std Deviation 57.6 H (36.4-46.3) fL RDW Coeff of Tim 18.8 H (11.5-14.5) % Plt Count 265 (130-400) K/uL MPV 10.4 (9.4-12.4) fL Immature Gran % (Auto) 0.3 % Neut % (Auto) 68.1 % Lymph % (Auto) 22.1 % [place] % (Auto) 8.2 % Eos % (Auto) 0.7 % Baso % (Auto) 0.6 % Neut # (Auto) 4.89 (1.40-6.50) K/uL Lymph # (Auto) 1.59 (1.2-3.4) K/uL Marinette # (Auto) 0.59 (0.11-0.59) K/uL Eos # (Auto) 0.05 (0-0.50) K/uL Baso # (Auto) 0.04 (0-0.2) K/uL Immature Gran # (Auto) 0.02 (0.01-0.20) K/uL PT 11.0 (9.0-12.0) Seconds INR 1.0 (0.9-1.1) APTT 26.4 (21.0-31.0) Seconds PTT Ratio 0.9 Sodium 141 (136-145) mmol/L Potassium 3.5 (3.5-5.1) mmol/L Chloride 107 (98-107) mmol/L Carbon Dioxide 27 (21-32) mmol/L Anion Gap 7 (3-11) BUN 5 L (6-23) mg/dl Creatinine 0.66 (0.6-1.2) mg/dl Est Cr Clr Drug Dosing Not Reportable Est GFR ( Amer) 137.4 ml/min Est GFR (Non-Af Amer) 118.5 ml/min BUN/Creatinine Ratio 7.6 L (10-20) Glucose 86 (70-99(Fasting)) mg/dl Calcium 8.9 (8.6-10.3) mg/dl Total Bilirubin 0.3 (0.2-1.0) mg/dl AST 16 (13-39) U/L ALT 12 (7-52) U/L Alkaline Phosphatase 81 (34-104) U/L Total Protein 6.4 (6.0-8.3) gm/dl Albumin 4.1 (3.4-5.0) gm/dl Globulin 2.3 L (2.5-4.0) gm/dl Albumin/Globulin Ratio 1.8 (0.9-2) Lipase 22 (11-82) U/L Administered Medications Discontinued Medications Hydromorphone HCl (Hydromorphone Inj 0.5 Mg/0.5 Ml Syr) 0.25 mg IV NOW STA Stop: 10/06/22 18:32 Last Admin: 10/06/22 18:37 Dose: 0.25 mg Documented By: SANTA Hydromorphone HCl (Hydromorphone Inj 0.5 Mg/0.5 Ml Syr) 0.25 mg IV NOW STA Stop: 10/06/22 20:14 Last Admin: 10/06/22 20:23 Dose: 0.25 mg Documented By: SANTA Sodium Chloride (Nss 1000ml) 1,000 mls @ 999 mls/hr IV .Q1H1M EMERALD Stop: 10/06/22 18:00 Last Admin: 10/06/22 18:13 Dose: 999 mls/hr Documented By: TIEN Sodium Chloride (Nss 1000ml) 1,000 mls @ 999 mls/hr IV .Q1H1M ONE Stop: 10/06/22 19:31 Last Admin: 10/06/22 18:37 Dose: 999 mls/hr Documented By: SANTA Ioversol (Optiray 320 100ml) 89 ml IV ONCE ONE Stop: 10/06/22 19:03 Last Admin: 10/06/22 19:03 Dose: 89 ml Documented By: RUIZ Lorazepam (Lorazepam 2 Mg/1 Ml Vial) 0.5 mg IV NOW STA Stop: 10/06/22 20:14 Last Admin: 10/06/22 20:23 Dose: 0.5 mg Documented By: SANTA Ondansetron HCl (Ondansetron Inj 2 Mg/Ml 2 Ml Vial) 4 mg IV NOW STA Stop: 10/06/22 18:32 Last Admin: 10/06/22 18:37 Dose: 4 mg Documented By: SANTA Imaging Data Radiologist's Impression: Head CT 10/06/22 17:[address] DOSE: 547.75 mGy.cm HISTORY: seizures TECHNIQUE: Multiaxial CT images of the head were performed without the use of intravenous contrast. Automated exposure control was utilized for this study. A dose lowering technique was utilized adhering to the principles of ALARA. Comparison: Head CT 07/08/2022. Findings: The paranasal sinuses and mastoid air cells are clear. The calvarium and skull base are intact. The ventricles and sulci are within normal limits. There is no mass, hematoma, midline shift, or acute infarct. Impression: No acute intracranial abnormality. ACT 112: Negative or not required by law. Electronically signed by: Victor Hugo Snowden M.D. 10/06/2022 7:09 PM Abdomen/Pelvis CT 10/06/22 18:[address] WITH IV CONTRAST CT DOSE: 647.92 mGy.cm HISTORY: lower abdominal pain TECHNIQUE: Multiaxial CT images of the abdomen and pelvis were performed following the use of intravenous contrast. A dose lowering technique was utilized adhering to the principles of ALARA. COMPARISON STUDY: Abdomen and pelvis CT 08/27/2022. FINDINGS: The lung bases are clear. No pneumoperitoneum. No pneumatosis. There are healing/healed left anterior sixth and seventh rib fractures. No acute fractures identified. A percutaneous gastrojejunostomy tube appears in good position. Prior subtotal colectomy with a right lower quadrant ileostomy. No dose of small bowel to suggest an obstruction. Cholecystectomy. The main portal vein is patent. The liver, spleen, adrenal glands, and pancreas are unremarkable. The kidneys enhance normally. No hydronephrosis. Normal caliber abdominal aorta. No retroperitoneal or pelvic lymphadenopathy. There is mild thickening of the bladder wall which could be due to underdistention. There is also mild thickening of the vaginal cuff. Prior hysterectomy. Bilateral ovarian cysts are noted which measure up to 2.9 cm on the left. These are likely physiologic. The rectal stump is again noted. Small amount of fluid at the umbilicus, unchanged. There are multiple small bowel loops abutting the anterior abdominal wall at the level of the umbilicus. An underlying enterocutaneous fistula is not clearly identified but would be in the differential diagnosis. Clinical correlation recommended to assess for umbilical drainage. IMPRESSION: 1. Mild thickening of the vaginal wall which is nonspecific. This may be chronic. The patient is status post hysterectomy. Pelvic examination could be performed for further evaluation. 2. Mild bladder wall thickening likely due to underdistention. Recommend correlation with urinalysis. 3. No bowel wall thickening or obstruction. 4. Postoperative changes as described above. 5. Small amount of fluid at the umbilicus, unchanged. There are multiple small bowel loops abutting the anterior abdominal wall at the level of the umbilicus. An underlying enterocutaneous fistula is not clearly identified but would be in the differential diagnosis. Clinical correlation recommended to assess for umbilical drainage. ACT 112: Negative or not required by law. Electronically signed by: Victor Hugo Snowden M.D. 10/06/2022 7:21 PM Discharge Plan Visit Data Chief Complaint: Seizure Stated Complaint: 3 SEIZURES TODAY, ABDOMINAL PAIN ED Provider: Radha Alfred Discharge Problem: Intractable abdominal pain Forms Stand Alone Forms: [facility] Prescriptions Prescriptions: No Action pyridoxine (vitamin B6) 50 mg tablet 50 mg PO DAILY famotidine 40 mg tablet 20 mg PO BID Rx Instructions: 1/2 tablet dose hydrocortisone 10 mg tablet 10 - 15 mg PO BID Rx Instructions: TAKE 15 MG EVERY MORNING AND 10 MG EVERY AFTERNOON dicyclomine 10 mg Capsule 10 - 20 mg PO Q6H PRN (Reason: Abdominal Pain) pantoprazole [Protonix] 40 mg tablet,delayed release (DR/EC) 40 mg PO QAM lorazepam [Ativan] 2 mg/mL Solution 0.5 mg buccal QID PRN (Reason: Nausea) Rx Instructions: DIRECTED 0.5 MG (0.25 ML) gabapentin 250 mg/5 mL solution 300 mg PO TID Rx Instructions: 6 ml po TID fexofenadine 180 mg Tablet 180 mg PO PM hydromorphone 1 mg/mL Liquid 4 mg PO Q4H PRN (Reason: Pain) methocarbamol 750 mg Tablet 750 mg PO TID cholecalciferol (vitamin D3) [Vitamin D3] 25 mcg (1,000 unit) Capsule 50 mcg PO DAILY duloxetine 60 mg capsule,delayed release(DR/EC) 60 mg PO DAILY fentanyl 25 mcg/hr Patch 72 Hour 1 patch TRANSDERMAL Q72H ondansetron 8 mg tablet,disintegrating 8 mg PO TID PRN (Reason: Nausea) fludrocortisone 0.1 mg tablet 0.1 mg PO BID acetaminophen [Tylenol Extra Strength] 500 mg Tablet 1,000 mg PO Q6H PRN (Reason: Pain) Multivitamin Gummies 200 mcg Tablet,Chewable 2 tab PO PM turmeric 400 mg Capsule 400 mg PO PM Rx Instructions: Takces 1 cap daily coenzyme Q10 [CoQ-10] 100 mg capsule 100 mg PO PM Rx Instructions: Takes 1 tab daily UNKNOWN STRENGTH (DME) Enema Bottle Bottle See Rx Instructions .Route Qty: 72 0RF Rx Instructions: As directed Referrals Referrals: Mariah Addison, [Primary Care Provider] -
[2022-10-06] MEDS ORDERED: OPTIRAY 320 100ml IV ONE (19:02)
--- NOTE | 2022-10-06 19:12 | CT Scan Report ---
HEAD CT NONCONTRAST CT DOSE: 547.75 mGy.cm HISTORY: seizures TECHNIQUE: Multiaxial CT images of the head were performed without the use of intravenous contrast. A utomated exposure control was utilized for this study. A dose lowering technique was utilized adheri ng to the principles of ALARA. Comparison: Head CT 07/08/2022. Findings: The paranasal sinuses and mastoid air cells are clear. The calvarium and skull base are int act. The ventricles and sulci are within normal limits. There is no mass, hematoma, midline shift, or acute infarct. Impression: No acute intracranial abnormality. ACT 112: Negative or not required by law. Electronically signed by: Victor Hugo Snowden M.D. 10/06/2022 7:09 PM
--- NOTE | 2022-10-06 19:24 | CT Scan Report ---
ABDOMEN AND PELVIS CT WITH IV CONTRAST CT DOSE: 647.92 mGy.cm HISTORY: lower abdominal pain TECHNIQUE: Multiaxial CT images of the abdomen and pelvis were performed following the use of intrave nous contrast. A dose lowering technique was utilized adhering to the principles of ALARA. COMPARISON STUDY: Abdomen and pelvis CT 08/27/2022. FINDINGS: The lung bases are clear. No pneumoperitoneum. No pneumatosis. There are healing/healed lef t anterior sixth and seventh rib fractures. No acute fractures identified. A percutaneous gastrojejun ostomy tube appears in good position. Prior subtotal colectomy with a right lower quadrant ileostomy. No dose of small bowel to suggest an obstruction. Cholecystectomy. The main portal vein is patent. T he liver, spleen, adrenal glands, and pancreas are unremarkable. The kidneys enhance normally. No hyd ronephrosis. Normal caliber abdominal aorta. No retroperitoneal or pelvic lymphadenopathy. There is m ild thickening of the bladder wall which could be due to underdistention. There is also mild thickeni ng of the vaginal cuff. Prior hysterectomy. Bilateral ovarian cysts are noted which measure up to 2.9 cm on the left. These are likely physiologic. The rectal stump is again noted. Small amount of fluid at the umbilicus, unchanged. There are multiple small bowel loops abutting the anterior abdominal wa ll at the level of the umbilicus. An underlying enterocutaneous fistula is not clearly identified but would be in the differential diagnosis. Clinical correlation recommended to assess for umbilical tana inage. IMPRESSION: 1. Mild thickening of the vaginal wall which is nonspecific. This may be chronic. The patient is stat us post hysterectomy. Pelvic examination could be performed for further evaluation. 2. Mild bladder wall thickening likely due to underdistention. Recommend correlation with urinalysis. 3. No bowel wall thickening or obstruction. 4. Postoperative changes as described above. 5. Small amount of fluid at the umbilicus, unchanged. There are multiple small bowel loops abutting t he anterior abdominal wall at the level of the umbilicus. An underlying enterocutaneous fistula is no t clearly identified but would be in the differential diagnosis. Clinical correlation recommended to assess for umbilical drainage. ACT 112: Negative or not required by law. Electronically signed by: Victor Hugo Snowden M.D. 10/06/2022 7:21 PM
--- NOTE | 2022-10-06 20:12 | History & Physical Report ---
Date of Service October 06, 2022 Assessment & Plan (1) Seizure-like activity: Plan: 32yo female with non-epileptic seizures, adrenal insufficiency, and an extensive GI history including gastroparesis, ostomy placement, intractable abdominal pain, and multiple GI surgeries presents with a few-day history of worsening abdominal pain and one day of multiple seizure-like episodes. Seizure-like activity Patient with history of nonepileptic seizures which in the past have been triggered by abdominal pain Patient is to have a five-day admission at [facility] next month at their epilepsy unit for further workup Will hold off on neuro consult or antiepileptics for now Pain control plan noted below Seizure precautions Telemetry monitoring Consider exploring to see if [facility] can take patient sooner than next month Abdominal pain, nausea, vomiting, gastroparesis Patient with extensive GI history and chronic abdominal pain Etiology for recently-worsening pain unclear Labs unremarkable Pain control: APAP 1000mg IV q8h scheduled Dilaudid 0.5mg IV q3h prn moderate/severe pain Nausea control: Zofran 4mg IV q4h prn If zofran is ineffective, consider small spot doses of ativan as this has worked well for patient in the past Continue home methocarbamol and dicyclomine NPO for now, advance diet as tolerated NSS @ 80mL/hr (x1 bag ordered) Nutrition consult ordered Trend CBC, CMP, magnesium, phosphorus Adrenal insufficiency Continue home steroids Right ankle sprain Occurred in July; right foot is in an orthopedic boot PT/OT ordered, as patient was supposed to begin outpatient PT tomorrow Will use lovenox for DVT prophylaxis since the boot precludes SCDs FEN: NPO, advance diet as tolerated, NSS @ 80mL/hr (x1 bag ordered) Code status: full code DVT ppx: lovenox PT/OT: ordered Case management: consulted d/t complex needs Dispo: med/telemetry (2) Abdominal pain: (3) Adrenal insufficiency: (4) Anemia: (5) Chronic malnutrition: (6) Dehydration: (7) DVT prophylaxis: (8) Gastroparesis: (9) Gastrostomy tube in place: (10) Nausea and vomiting: History of Present Illness Primary Care Provider: Mariah Addison, 32yo female with non-epileptic seizures, adrenal insufficiency, and an extensive GI history including gastroparesis, ostomy placement, intractable abdominal pain, and multiple GI surgeries presents with a few-day history of worsening abdominal pain and one day of multiple seizure-like episodes. - abdominal pain has been worsening over the past few days without clear trigger - has also had nausea, vomiting, poor appetite, and low ostomy output - had been doing relatively well prior; patient has been tapering down on her home pain regimen and discontinued her fentanyl patch 1-2 weeks ago - patient has had eight episodes of seizure-like activity, which she believes were triggered by significantly worsened abdominal pain - patient is awaiting a five-day admission, planned for next month, at the epilepsy unit at [facility] for further workup - of note but unrelated, patient sprained her right ankle in July and is wearing an orthopedic boot Patient denies fever, chills, headache, vision changes, CP, palpitations, SOB, dysuria, hematochezia, melena, back pain, dizziness, numbness, tingling, weakness, or other symptoms. Denies recent illness and recent travel. Upon arrival, vitals were notable for tachycardia (108); BP controlled, no tachypnea, patient afebrile, spO2 adequate on room air. Initial labs were notable for mild anemia (11.9); no leukocytosis, platelets wnl, no electrolyte abnormalities, creatinine not elevated, LFTs wnl, Tbili not elevated. In the ED, patient received NSS 1L bolus (x2), zofran, and dilaudid. Imaging: CT head: no acute abnormality CT a/p: mild thickening of the vaginal wall which is nonspecific; mild bladder wall thickening likely due to underdistention; no bowel wall thickening or obstruction; small amount of fluid at the umbilicus, unchanged from prior; there are multiple small bowel loops abutting the anterior abdominal wall at the level of the umbilicus; an underlying enterocutaneous fistula is not clearly identified but would be in the differential diagnosis Allergies Allergy/AdvReac Type Severity Reaction Status Date / Time diphenhydramine Allergy Severe Anaphylaxis Verified 09/26/22 14:10 promethazine Allergy Severe hives, Verified 09/26/22 14:10 throat swelling adhesive Allergy Intermediate Redness of Verified 09/26/22 14:10 Skin amoxicillin Allergy Intermediate RASH Verified 09/26/22 14:10 calcium Allergy Intermediate SEE COMMENT Verified 09/26/22 14:10 [From VIACTIV Multi-Vitamin] cefazolin Allergy Intermediate rash Verified 09/26/22 14:10 Cephalosporins Allergy Intermediate HIVES Verified 09/26/22 14:10 clavulanic acid Allergy Intermediate HIVES Verified 09/26/22 14:10 ferric carboxymaltose Allergy Intermediate Rash Verified 09/26/22 14:10 [From Injectafer] folic acid Allergy Intermediate SEE COMMENT Verified 09/26/22 14:10 [From VIACTIV Multi-Vitamin] iron [From Venofer] Allergy Intermediate Muscle Pain Verified 09/26/22 14:10 multivitamin with minerals Allergy Intermediate SEE COMMENT Verified 09/26/22 14:10 [From VIACTIV Multi-Vitamin] Penicillins Allergy Intermediate HIVES Verified 09/26/22 14:10 prochlorperazine Allergy Intermediate HIVES Verified 09/26/22 14:10 sulfamethoxazole Allergy Intermediate RASH Verified 09/26/22 14:10 sumatriptan Allergy Intermediate RASH Verified 09/26/22 14:10 trimethoprim Allergy Intermediate RASH Verified 09/26/22 14:10 metoclopramide AdvReac Severe anxiety/ Verified 09/26/22 14:10 jittery morphine AdvReac Severe Severe Verified 09/26/22 14:10 abdominal Pain, sphincter of oddi spasms erythromycin base AdvReac Intermediate GI SYMPTOMS Verified 09/26/22 14:10 citalopram [From Celexa] AdvReac Unknown CAN'T Verified 09/26/22 14:10 REMEMBER Home Medications Medication Instructions Recorded Confirmed Type dicyclomine 10 mg capsule 10 - 20 mg PO Q6H PRN Abdominal 03/07/18 10/06/22 History Pain pantoprazole 40 mg tablet,delayed 40 mg PO QAM 09/08/19 10/06/22 History release (Protonix) famotidine 40 mg tablet 20 mg PO BID 11/28/19 10/06/22 History lorazepam 2 mg/mL injection 0.5 mg buccal QID PRN Nausea 12/05/19 10/06/22 History solution (Ativan) hydrocortisone 10 mg tablet 10 - 15 mg PO BID 02/07/20 10/06/22 History fexofenadine 180 mg tablet 180 mg PO PM 10/09/20 10/06/22 History gabapentin 250 mg/5 mL oral 300 mg PO TID 10/09/20 10/06/22 History solution fludrocortisone 0.1 mg tablet 0.1 mg PO BID 12/12/20 10/06/22 History acetaminophen 500 mg tablet 1,000 mg PO Q6H PRN Pain 06/13/21 10/06/22 History (Tylenol Extra Strength) multivitamin with minerals-folic 2 tab PO PM 06/13/21 10/06/22 History acid 200 mcg chewable tablet (Multivitamin Gummies) turmeric 400 mg capsule 400 mg PO PM 06/13/21 10/06/22 History empty container (Enema Misc Bottle) #72 ea 01/16/22 10/06/22 Rx hydromorphone 1 mg/mL oral liquid 4 mg PO Q4H PRN Pain 04/01/22 10/06/22 History cholecalciferol (vitamin D3) 25 50 mcg PO DAILY 04/07/22 10/06/22 History mcg (1,000 unit) capsule (Vitamin D3) duloxetine 60 mg capsule,delayed 60 mg PO DAILY 04/07/22 10/06/22 History release methocarbamol 750 mg tablet 750 mg PO TID 04/07/22 10/06/22 History coenzyme Q10 100 mg capsule 100 mg PO PM 07/22/22 10/06/22 History (CoQ-10) pyridoxine (vitamin B6) 50 mg 50 mg PO DAILY 07/22/22 10/06/22 History tablet fentanyl 25 mcg/hr transdermal 1 patch transdermal Q72H 09/01/22 10/06/22 History patch ondansetron 8 mg disintegrating 8 mg PO TID PRN Nausea 10/06/22 10/06/22 History tablet Past Med/Surg History Medical History Asthma Chronic migraine Colitis Diversion colitis Elevated lipase Endometriosis has had 3 surgeries for this. Last surgery [address] Hemorrhagic cystitis Hypotension Intussusception Pancreatitis PICC (peripherally inserted central catheter) in place TPN SMAS (superior mesenteric artery syndrome) History of SMAS SMAS (superior mesenteric artery syndrome) Sphincter of Oddi dysfunction DECREASED GI MOTILITY Transaminitis Uses feeding tube gastroparesis and decreased GI motility can not tolerate feeding and uses TPN UTI (urinary tract infection) Surgical History H/O adenoidectomy H/O laparoscopy H/O lumpectomy right breast 2011 History of appendectomy History of bowel resection Part of duodenum removed due to necrosis; done at [facility] 2019 History of hysterectomy 09/27/19 History of removal of Port-a-Cath 10/13/[address] Geiger, [facility], due to bacteremia/sepsis. History of vascular access device 2017 Hx of colonoscopy during procedure perforated small bowel 10/27/2019 at [facility], subsequent repair of duodenal area. Hx of ileostomy Hx of tonsillectomy S/P cholecystectomy 2015 S/P wrist surgery right Family History Father Hyperlipidemia Other No significant family history Social History Smoking Status: Never smoker Second Hand Exposure: No; Do You Dip or Chew Tobacco: No; Tobacco Cessation Education Requested by Patient: No Hx Alcohol Use: No Hx Substance Use: No Preferred Language: Icelandic Communication Ability: Effective Visual Impairment: No Limitations Hearing Ability: Normal Adjunct Physical Education Instructor Required: No Beliefs That Will Affect Care: None marital status: Single Current Living Situation: Parent and Family Current Living Situation Comment: Lives with family. current occupational status: unemployed current occupation: completed 4-year degree at [employer] How many Children do You have: 0 Other Information That Helps Us Care for You: No Feels Safe at Home: Yes Safety Concerns: Feels Safe At This Time Diet: regular Sexual Activity Comment: not sexually active Assistive Devices: Crutches and Wheelchair Review of Systems Review of Systems: See HPI Physical Exam Physical Exam: Constitutional: tired-appearing, no acute distress HEENT: MMM CV: regular rhythm, no murmur appreciated, extremities well-perfused, no LE edema Resp: CTABL, no wheezes/rales/rhonchi appreciated, no increased work of breathing GI: soft, nondistended, mild RUQ/LUQ tenderness, moderate RLQ/LLQ tenderness, severe suprapubic tenderness MSK: right foot in orthopedic boot Skin: abdominal ostomy in place, no surrounding erythema or edema Neuro: alert, oriented, no focal neurologic deficit appreciated Results & Data Results & Data Vital Signs (Past 12 Hours) Vital Signs Temp Pulse Pulse Resp BP BP Pulse Ox 10/06/22 19:00 96 H 18 101/63 99 10/06/22 16:54 36.8 C 108 H 20 112/78 98 O2 Del Method 10/06/22 19:00 10/06/22 16:54 Room Air Supervising Physician Co-Signing Physician Notes Attending addendum: I have physically seen this patient, have supervised the medical residents activities, and agree with the H&P unless as otherwise noted. Assessment and Plan: Seizure-like activity- Patient with history of nonelectric seizures triggered by abdominal pain Pending future admission to [facility] epilepsy unit as noted Admit to monitored bed Seizure precautions Abdominal pain/nausea/vomiting/gastroparesis- No further work-up as has had an extensive work-up in the past Pain control with Dilaudid and Tylenol as noted Zofran 4 mg IV every 4 hours as needed N.p.o. overnight, reassess dietary intake in a.m. NSS at 80 mils per hour Consult nutrition Remaining orders and notations as noted Resident Activity Tracking Resident Involvement: Resident Care Provided Care Provided: Adult Hospital Medicine
[2022-10-06] MEDS ORDERED: LORazepam 2 MG/1 ML VIAL IV STA (20:13)
[2022-10-06] MEDS ORDERED: METHOCARBAMOL 750 MG TABLET PO ONE (21:30)
[2022-10-06] MEDS ORDERED: FEXOFENADINE HCL 180 MG TAB PO ONE (21:30)
[2022-10-06] MEDS ORDERED: GABAPENTIN 250 MG/5 ML 470 ML BTL PO ONE (21:30)
[2022-10-06] MEDS ORDERED: FLUDROCORTISONE ACETATE 0.1 MG TAB PO ONE (21:30)
[2022-10-06] MEDS ORDERED: FAMOTIDINE 20 MG TAB PO ONE (21:30)
[2022-10-06] MEDS ORDERED: ACETAMINOPHEN 1000 MG/100 ML IV IV SCH (22:43)
[2022-10-07] MEDS: HYDROmorphone INJ 0.5 MG/0.5 ML SYR IV PRN ×3 (00:46→07:20)
[2022-10-07] MEDS: ONDANSETRON INJ 2 MG/ML 2 ML VIAL IV PRN ×3 (00:49→21:59)
[2022-10-07] MEDS: ACETAMINOPHEN 1,000 MG/100 ML VIAL IV SCH ×3 (01:03→16:24)
[2022-10-07] MEDS: ENOXAPARIN INJ 40 MG/0.4 ML SYR SQ SCH ×2 (01:08→21:59)
[2022-10-07] MEDS: DICYCLOMINE HCL 10 MG CAP PO PRN ×2 (02:14→21:59)
[2022-10-07 04:05] LABS: Appearance Urine Clear (Clear); Bilirubin Urine Negative (Negative); Blood Urine Negative (Negative); Color Urine Yellow; Glucose Urine UA Negative (Negative); Ketones Urine Negative (Negative); Leukocyte Esterase Urine Negative (Negative); Nitrite Urine Negative (Negative); Protein Urine Negative (Negative); Specific Gravity Urine > 1.045 (1.000-1.030); Urobilinogen Urine Negative (Negative)
[2022-10-07 06:48] LABS: Hematocrit (blood only) 33.8 % (37.0-47.0); Hemoglobin 10.8 g/dl (12.0-16.0); Mean Corpuscular Hemoglobin 27.2 pg (25.0-34.0); Mean Corpuscular Volume 85.1 fL (80.0-100.0); Mean Platelet Volume 10.7 fL (9.4-12.4); Platelet Count 251 K/uL (130-400); RDW Coefficient of Variation 18.6 % (11.5-14.5); RDW Standard Deviation 58.8 fL (36.4-46.3); Red Blood Count 3.97 M/uL (4.20-5.40); White Blood Count 4.96 K/ul (4.8-10.8)
[2022-10-07] MEDS: LORazepam 2 MG/1 ML VIAL IV PRN ×2 (06:50→15:19)
--- NOTE | 2022-10-07 06:57 | XRay Report ---
KUB CLINICAL HISTORY: Abdominal pain. COMPARISON STUDY: CT of the abdomen and pelvis October 06, 2022 at 6:55 PM. FINDINGS: Gastrojejunostomy tube is in place. Contrast within the collecting systems, ureters and denis dder is from recent contrast-enhanced CT. Contrast within the rectum is again noted. There is no evid ence for a bowel obstruction. No evidence for free air on supine exam. IMPRESSION: No evidence for a bowel obstruction. ACT 112: Negative or not required by law. Electronically signed by: Ruperto Lopez M.D. 10/07/2022 6:56 AM
[2022-10-07 07:20] LABS: Albumin Globulin Ratio 1.8 (0.9-2); Albumin Level 3.4 gm/dl (3.4-5.0); BUN Creatinine Ratio 7.8 (10-20); Bilirubin,Total 0.3 mg/dl (0.2-1.0); Calcium 8.3 mg/dl (8.6-10.3); Creatinine Clr Calc Pharmacy 107.5 ml/min; Est GFR (African American) 138.8 ml/min; Est GFR (Non-African American) 119.7 ml/min; Globulin 1.9 gm/dl (2.5-4.0); Magnesium 1.8 mg/dl (1.7-2.4); Phosphorus 4.1 mg/dl (2.5-4.9); Potassium 3.4 mmol/L (3.5-5.1); Total Protein 5.3 gm/dl (6.0-8.3)
--- NOTE | 2022-10-07 08:29 | Hospitalist Progress Note ---
Date of Service October 07, 2022 Assessment & Plan (1) Seizure-like activity: Plan: 32 yo female with non-epileptic seizures, adrenal insufficiency, and an extensive GI history including gastroparesis, ostomy placement, intractable abdominal pain, and multiple GI surgeries presents with a few-day history of worsening abdominal pain and one day of multiple seizure-like episodes. Seizure-like activity Patient with history of nonepileptic seizures which in the past have been triggered by abdominal pain Patient is to have a five-day admission at [facility] next month at their epilepsy unit for further workup Will hold off on neuro consult or antiepileptics for now Pain control plan noted below Seizure precautions Telemetry monitoring (2) Abdominal pain: Plan: Patient with extensive GI history and chronic abdominal pain Etiology for recently-worsening pain unclear Labs unremarkable Pain control: Patient controlled analgesia, 0.25 q15 minutes dilautid Continue home methocarbamol, dicyclomine, cymbalta, and gabapentin Nutrition: TPN Dietition consult ordered Trend CBC, CMP, magnesium, phosphorus (3) Nausea: Plan: Zofran 4mg IV q4h prn If zofran is ineffective, consider small spot doses of ativan as this has worked well for patient in the past Monitor respiratory rate closely for respiratory depression with use of ativan and DE IONIZER OPERATOR pump (4) Right ankle sprain: Plan: Occurred in July; right foot is in an orthopedic boot PT/OT ordered, as patient was supposed to begin outpatient PT tomorrow boot precludes SCDs (5) Adrenal insufficiency: Plan: Continue home steroids (6) Chronic malnutrition: Plan: Dietition consult placed nutrition: TPN Patient cannot tolerate vitamin supplements in TPN (7) Gastrostomy tube in place: Plan: Previously failed enteral feeds, continue TPN (8) DVT prophylaxis: Plan: Lovenox Plan FEN: TPN Code status: full code DVT ppx: lovenox PT/OT: ordered Case management: consulted d/t complex needs Dispo: med/telemetry Admission and Anticipated Discharge Date Admission Date: October 06, 2022 Supervising Physician Co-Signing Physician Notes I personally examined the patient and verified all solorzano points of history and exam, discussed case, and agree with decision making with Son GARSIA Pain starting to come under better control since initiation of DE IONIZER OPERATOR. Notes that for a little while after surgery at [facility] she was doing pretty well with pain control and had not had any pseudoseizures in quite a while attributing to the better pain control. Notes she was informed that she would not be listed for intestinal transplant if she was on chronic narcotics so she took herself off her fentanyl patch and the strength to get by on as needed Dilaudid aloneduring that time she seems to have had worsening abdominal pain less appetite more overall pain, and subsequently recently more episodes of pseudoseizures. She went to her PCPs yesterday with uncontrolled pain, and we attempted to directly admit her for pain controlunfortunately due to lack of bed availability patient had to go to the ER instead. Vitals noted, in general she is awake and alert pleasant no distress. HEENT normocephalic atraumatic mu cous membranes moist. Abdomen is soft her patch site appears to be clean dry and intact and is fairly nontender. Her lower mid abdomen is somewhat tender without guarding rebound or rigidity. Ostomy right lower abdomen. Uncontrolled pain with subsequent pain induced pseudoseizuresfor now control pain better with the Dilaudid DE IONIZER OPERATOR. Work on nausea as well. Was not entirely clear is if the pain is purely her chronic adhesional and motility driven pain (compounded by her chronic neuro psycho genic pain milieu from having had such severe chronic pain for so long), versus any new anatomic/obstructive/motility issues. CT suggests there is the possibility of an enterocutaneous fistulathat cannot be ruled out but is also not definitively seenthat I do not really see at the bedside today, but obviously I will keep reevaluating for such. At the same time I am not sure that this would really cause new pain issues. I am most suspicious that this is simply her chronic pain being unmasked given the attempt to wean from narcotics. We had a discussion of goals of care, and while our most immediate goal will really just be to try to acutely bring the pain under control, we are all in agreement that it is reasonable to at least entertain the idea of trying to maintain decent pain control for decent quality of life even if it precludes [facility] from continuing to look at her as a transplant candidateversus trying to wean off of the pain meds and seeing how she does, +/- seeking evaluation from a different transplant center. Dilaudid DE IONIZER OPERATOR for now, antiemetics, serial exams, etc. Otherwise as above. Subjective Pilar is still feeling a significant amount of abdominal pain but reports some improvement compared to yesterday. No vomiting since yesterday. Reports 9 pseudoseizures yesterday and 2 this morning. Pseudoseizure at 0940 this morning mostly associated with pain. No fever/chills. Ostomy output decreased, but patient associates this with decreased intake. Review of Systems Review of Systems: All systems reviewed & are unremarkable except as noted in HPI & below Physical Exam Physical Exam: Constitutional: No acute distress. HEENT: Moist mucous membranes. CV: Regular rate and rhythm, no murmurs/rubs/gallops. Resp: chest clear to auscultation bilaterally, no wheezes/rales/rhonchi appreciated, no increased work of breathing GI: soft, nondistended, mild RUQ/LUQ tenderness, moderate RLQ/LLQ tenderness, severe suprapubic tenderness. abdominal ostomy in place, no surrounding erythema or edema MSK: right foot in orthopedic boot Neuro: alert and oriented x3 Results & Data Results & Data Vital Signs (Past 12 Hours) Vital Signs Temp Pulse Pulse Resp BP Pulse Ox O2 Del Method 10/07/22 08:02 36.8 C 97 H 16 96/60 L 98 Room Air 10/06/22 23:03 96 H 10/07/22 05:26 36.6 C 102 H 20 108/73 98 Room Air 10/06/22 23:01 36.6 C 93 H 18 110/71 97 Room Air 10/06/22 23:01 36.6 C 93 H 18 110/71 97 Room Air
--- NOTE | 2022-10-07 09:03 | Electrocardiogram Report ---
Test Reason : Blood Pressure : / mmHG Vent. Rate : 094 BPM Atrial Rate : 094 BPM P-R Int : 154 ms QRS Dur : 084 ms QT Int : 358 ms P-R-T Axes : 047 026 018 degrees QTc Int : 447 ms Normal sinus rhythm Possible Left atrial enlargement Cannot rule out Septal infarct , age undetermined Abnormal ECG When compared with ECG of 27-AUG-2022 15:22, Septal infarct is now Present Confirmed by Fausto Jones ([id number]) on 10/07/2022 9:03:13 AM Referred By: REFERRED SELF Confirmed By:Fausto Jones
[2022-10-07] MEDS: PANTOprazole 40 MG TAB PO SCH (09:21)
[2022-10-07] MEDS: FAMOTIDINE 20 MG TAB PO SCH ×2 (09:21→22:01)
[2022-10-07] MEDS: HYDROCORTISONE 10 MG TAB PO SCH ×2 (09:21→13:45)
[2022-10-07] MEDS: PYRIDOXINE HCL 50 MG TAB PO SCH (09:21)
[2022-10-07] MEDS: DULoxetine HCL 60 MG CAP PO SCH (09:21)
[2022-10-07] MEDS: METHOCARBAMOL 750 MG TABLET PO SCH ×3 (09:21→22:00)
[2022-10-07] MEDS: FLUDROCORTISONE ACETATE 0.1 MG TAB PO SCH ×2 (09:22→22:00)
[2022-10-07] MEDS ORDERED: NALOXONE HCL 0.4 MG/1 ML VIAL/CARP IV PRN (09:44)
[2022-10-07] MEDS: GABAPENTIN 250 MG/5 ML 470 ML BTL PO SCH ×3 (09:58→22:09)
[2022-10-07] MEDS ORDERED: HYDROmorphone INJ 1 MG/ML SYRINGE IV STA (09:59)
[2022-10-07] MEDS: SODIUM CHLORIDE 0.9% 1000ML 1,000 ML IV SCH (11:41)
[2022-10-07] MEDS: HYDROmorphone PCA 30 MG/30 ML IV PRN (11:41)
[2022-10-07] MEDS ORDERED: DEXTROSE 10% 1,000 ML IV PRN (13:27)
[2022-10-07] MEDS ORDERED: TPN/PPN CONSULT PHARMACY PRN (14:00)
--- NOTE | 2022-10-07 15:19 | Pharmacy Report ---
Pharmacy PN Initial Consult - Date of Service October 07, 2022 - Scope Pharmacy has been consulted to manage parenteral nutrition orders and order appropriate labs. As part of the Nutrition Support Team guidelines, pharmacy will work in conjunction with dietary when determining the patients caloric needs. - Subjective The patient is a 32 year old F admitted on 10/06/22 20:42 for ABDOMINAL PAIN, NAUSEA, VOMITING. Patient is to receive parenteral nutrition for chronic in dication. Pertinent PMH: patient chronically maintained on TPN through [facility] - Objective Height: 5 ft 6 in Weight: 53 kg Diet: NPO Vascular Access:: central Intake & Output (Last 24Hrs): Intake & Output 10/05/22 10/06/22 10/07/22 10/08/22 06:59 06:59 06:59 06:59 Intake Total 2360 / 2360 100 / 100 Balance 2360 / 2360 100 / 100 Weight 53 kg 53 kg Laboratory Data (Last 24 Hrs):: 10/06/22 10/07/22 17:57 06:26 Sodium 141 143 Potassium 3.5 3.4 L Chloride 107 111 H Carbon Dioxide 27 26 BUN 5 L 5 L Creatinine 0.66 0.64 Glucose 86 78 Calcium 8.9 8.3 L Phosphorus 4.1 Magnesium 1.8 Total Bilirubin 0.3 0.3 AST 16 13 ALT 12 11 Alkaline Phosphatase 81 73 Albumin 4.1 3.4 Nutrition Assessment:: Please refer to the Notes section of the EMR for the most recent bushel girl note. - Assessment Ms Garcia is a 32 y/o F admitted with seizures related to pain control. Patient maintained on TPN at home. Obtained TPN formula from home and optimized regimen inhouse to match outpatient regimen. - Plan For day 1 of PN administration, the following will be ordered: Macronutrients Amino acids 80 grams/day Dextrose 140 grams/day Lipids 50 grams/day Micronutrients Combined electrolytes -- mL - contains 35 mEq Na, 20 meq K, 4.5 mEq Ca, 5 mEq Mg, 35 mEq Cl, 29.5 mEq acetate per 20 mL Sodium phosphate -- MMol Sodium chloride 40 mEq Sodium acetate 40 mEq Potassium phosphate 12 mMol Potassium chloride 50 mEq Potassium acetate 20 mEq Magnesium sulfate 12.18 mEq Calcium gluconate 9.3 mEq Multivitamins 10 mL Trace Elements 10 mL Additional additives: Total volume 1109 mL to be infused over 18 hrs will provide 1296 kcal/day Final osmolarity -- mOsm/L (maximum for PPN is 900 mOsm/L) Labs to be ordered per PN order protocol Pharmacy will follow and adjust parenteral nutrition orders on a daily basis. Thank you.
--- NOTE | 2022-10-07 18:06 | Billing Data ---
Date of Service October 07, 2022 Coding Level of Care Code 17319 SUB INP/OBS CARE
[2022-10-07] MEDS ORDERED: [UNRECOGNIZED DRUG - OTHER] IV SCH (21:00)
[2022-10-07] MEDS ORDERED: CENTRAL TPN IV SCH ×2 (21:00)
[2022-10-07] MEDS ORDERED: CLINOLIPID 20% IV FAT EMULSION 250 ML IV SCH (21:00)
[2022-10-07] MEDS ORDERED: [UNRECOGNIZED DRUG - OTHER] IV SCH (21:00)
[2022-10-07] MEDS: FEXOFENADINE HCL 180 MG TAB PO SCH (22:00)
[2022-10-07] MEDS ORDERED: HYDROmorphone INJ 0.5 MG/0.5 ML SYR IV STA (22:35)
[2022-10-08] MEDS: LORazepam 2 MG/1 ML VIAL IV PRN ×3 (00:46→18:18)
[2022-10-08] MEDS: ACETAMINOPHEN 1,000 MG/100 ML VIAL IV SCH ×3 (00:47→15:46)
[2022-10-08] MEDS ORDERED: STOP CLINOLIPID SCH (03:00)
[2022-10-08] MEDS: ONDANSETRON INJ 2 MG/ML 2 ML VIAL IV PRN ×3 (04:54→16:21)
--- NOTE | 2022-10-08 05:18 | Billing Data ---
Date of Service October 08, 2022 Coding Level of Care Code 11680 INT INP/OBS CARE
[2022-10-08] MEDS: DICYCLOMINE HCL 10 MG CAP PO PRN (05:38)
[2022-10-08] MEDS ORDERED: HYDROmorphone INJ 0.5 MG/0.5 ML SYR IV STA (05:46)
[2022-10-08 07:26] LABS: Anion Gap 8 (3-11); Blood Urea Nitrogen 9 mg/dl (6-23); Calcium 8.5 mg/dl (8.6-10.3); Carbon Dioxide 24 mmol/L (21-32); Chloride 107 mmol/L (98-107); Creatinine Clr Calc Pharmacy 137.7 ml/min; Est GFR (African American) > 150.0 ml/min; Est GFR (Non-African American) 129.9 ml/min; Glucose 95 mg/dl (70-99(Fasting)); Magnesium 1.9 mg/dl (1.7-2.4); Potassium 3.6 mmol/L (3.5-5.1); Sodium 139 mmol/L (136-145)
--- NOTE | 2022-10-08 08:51 | Hospitalist Progress Note ---
Date of Service October 08, 2022 Assessment & Plan (1) Seizure-like activity: Plan: 32 yo female with non-epileptic seizures, adrenal insufficiency, and an extensive GI history including gastroparesis, ostomy placement, intractable abdominal pain, and multiple GI surgeries presents with a few-day history of worsening abdominal pain and one day of multiple seizure-like episodes. Seizure-like activity Patient with history of nonepileptic seizures which in the past have been triggered by abdominal pain Patient is to have a five-day admission at [facility] next month at their epilepsy unit for further workup Will hold off on neuro consult or antiepileptics for now Pain control plan noted below Seizure precautions Telemetry monitoring (2) Abdominal pain: Plan: Patient with extensive GI history and chronic abdominal pain Etiology for recently-worsening pain unclear Labs unremarkable Pain control: Patient controlled analgesia 0.25 mg q30 minutes hydromorphone 1 mg hydromorphone scheduled at bedtime for overnight pain IV Acetaminophen Abdominal trigger point injections will be started tomorrow AM as a trial; these have not worked previously but are worth re-visiting as patient had some abdominal surgeries in the past year Continue home methocarbamol, dicyclomine, cymbalta, and gabapentin Nutrition: TPN Dietitian consult ordered Trend CBC, CMP, magnesium, phosphorus (3) Nausea: Plan: Zofran 4mg IV q4h prn If zofran is ineffective, consider small spot doses of ativan as this has worked well for patient in the past Monitor respiratory rate closely for respiratory depression with use of ativan and BOILING HOUSE HAND pump (4) Right ankle sprain: Plan: Occurred in July; right foot is in an orthopedic boot PT/OT ordered, as patient was supposed to begin outpatient PT tomorrow boot precludes SCDs (5) Adrenal insufficiency: Plan: Continue home steroids (6) Chronic malnutrition: Plan: Dietition consult placed nutrition: TPN Patient cannot tolerate vitamin supplements in TPN (7) Gastrostomy tube in place: Plan: Previously failed enteral feeds, continue TPN (8) DVT prophylaxis: Plan: Lovenox Plan FEN: TPN Code status: full code DVT ppx: lovenox PT/OT: ordered Case management: consulted d/t complex needs Dispo: med/telemetry Admission and Anticipated Discharge Date Admission Date: October 06, 2022 Supervising Physician Co-Signing Physician Notes I personally examined the patient and verified all solorzano points of history and exam, discussed case, and agree with decision making with Son Mcintyre MS2 pain doing better -mostly got bad through the night - was asleep so feels like she fell behind. now doing better again. still not sure if she wants to revisit chronic narcotic regimen vs other chronic regimen vs trying to do without. mom wonders if revisiting trigger point injection might be worthwhile since the last time when trigger points were first identified and injected patient also still had several looming issues that were causing pain that ultimately ended in surgeries - pt agrees she'd be willing to try again. Vitals noted, in general she is awake and alert fatigued and somewhat nauseated appearing. HEENT normocephalic atraumatic mucous membranes moist. does have at least 2 discrete abdominal wall trigger points that are quite tender Uncontrolled pain with subsequent pain induced pseudoseizuresfor now control pain better with the Dilaudid BOILING HOUSE HAND.she's not sure about resuming "basal bolus" narcotic regimen yet - so for now will add 1mg dilauded HS to help her not fall behind as much when she's asleep. increase gabapentin slightly - titrate up as tolerated. Work on nausea as well. Was not entirely clear is if the pain is purely her chronic adhesional and motility driven pain (compounded by her chronic neuro psycho genic pain milieu from having had such severe chronic pain for so long), versus any new anatomic/obstructive/motility issues. CT suggests there is the possibility of an enterocutaneous fistulathat cannot be ruled out but is also not definitively seenshe doesn't have umbilical discharge to support this - and also would be unlikely to be cause of pain. reasonable to try trigger point injections again given that surgical circumstances now appear different - low risk intervention and if it helps would be well worth it and easy to continue. lovenox DVT proph Subjective Pilar is still feeling a significant amount of abdominal pain and periods of severe nausea. Reports 3 pseudoseizure episodes overnight. Pain was better yesterday evening, but with getting behind on the BOILING HOUSE HAND pump due to sleeping, patient had episodes of severe pain early this AM. No episodes of vomiting. No fever/chills. Is feeling weaker than baseline. Review of Systems Review of Systems: All systems reviewed & are unremarkable except as noted in HPI & below Physical Exam Physical Exam: Constitutional: No acute distress. Lying in bed. HEENT: Moist mucous membranes. CV: Regular rate and rhythm, no murmurs/rubs/gallops. Resp: Lungs clear to auscultation bilaterally, no wheezes, rales, or rhonchi appreciated. No increased work of breathing and normal respiratory rate. GI: soft, nondistended, no rebound or guarding. RLQ/LLQ/RUQ/LUQ tenderness: most tender on right side. Abdominal ostomy in right lower quadrant, no surrounding erythema or edema. MSK: right foot in orthopedic boot Neuro: alert and oriented x3 Results & Data Results & Data Vital Signs (Past 12 Hours) Vital Signs Temp Pulse Pulse Resp BP BP Pulse Ox 10/08/22 08:15 93 H 10/08/22 08:12 37.3 C 97 H 16 106/71 97 10/07/22 22:02 115 H 10/08/22 03:47 36.5 C 103 H 16 99/66 L 97 10/07/22 23:01 36.6 C 114 H 18 104/71 97 O2 Del Method 10/08/22 08:15 10/08/22 08:12 Room Air 10/07/22 22:02 10/08/22 03:47 Room Air 10/07/22 23:01 Room Air
[2022-10-08] MEDS: FAMOTIDINE 20 MG TAB PO SCH ×2 (09:47→21:04)
[2022-10-08] MEDS: PYRIDOXINE HCL 50 MG TAB PO SCH (09:47)
[2022-10-08] MEDS: PANTOprazole 40 MG TAB PO SCH (09:47)
[2022-10-08] MEDS: METHOCARBAMOL 750 MG TABLET PO SCH ×3 (09:47→21:05)
[2022-10-08] MEDS: FLUDROCORTISONE ACETATE 0.1 MG TAB PO SCH ×2 (09:47→21:04)
[2022-10-08] MEDS: DULoxetine HCL 60 MG CAP PO SCH (09:47)
[2022-10-08] MEDS: HYDROCORTISONE 10 MG TAB PO SCH ×2 (09:47→13:44)
[2022-10-08] MEDS: GABAPENTIN 250 MG/5 ML 470 ML BTL PO SCH ×3 (09:54→21:03)
[2022-10-08] MEDS: HEPARIN 100 UNIT/ML 5ML FLUSH FLUSH PRN (15:49)
--- NOTE | 2022-10-08 18:00 | Billing Data ---
Date of Service October 08, 2022 Coding Level of Care Code 06172 SUB INP/OBS CARE
--- NOTE | 2022-10-08 18:01 | Billing Data ---
Date of Service October 08, 2022 Coding Level of Care Code 25898 SUB INP/OBS CARE
[2022-10-08] MEDS ORDERED: LIDOCAINE 2% LOCAL 50 ML VIAL INFIL ONE (18:15)
[2022-10-08] MEDS ORDERED: Nursing to Pharmacy Communication SCH (19:45)
[2022-10-08] MEDS ORDERED: CENTRAL TPN IV SCH (21:00)
[2022-10-08] MEDS ORDERED: [UNRECOGNIZED DRUG - OTHER] IV SCH (21:00)
[2022-10-08] MEDS: ENOXAPARIN INJ 40 MG/0.4 ML SYR SQ SCH (21:03)
[2022-10-08] MEDS: FEXOFENADINE HCL 180 MG TAB PO SCH (21:04)
[2022-10-08] MEDS: DICYCLOMINE HCL 20 MG TAB PO PRN (23:49)
[2022-10-08] MEDS: HYDROmorphone INJ 1 MG/ML SYRINGE IV SCH (23:50)
[2022-10-09] MEDS: SODIUM CHLORIDE 0.9% 1000ML 1,000 ML IV SCH ×2 (00:47→09:46)
[2022-10-09] MEDS: ACETAMINOPHEN 1,000 MG/100 ML VIAL IV SCH ×3 (01:06→16:11)
[2022-10-09] MEDS: LORazepam 2 MG/1 ML VIAL IV PRN ×3 (01:09→17:12)
[2022-10-09] MEDS: ONDANSETRON INJ 2 MG/ML 2 ML VIAL IV PRN ×2 (06:19→13:49)
[2022-10-09] MEDS ORDERED: LIDOCAINE 2% LOCAL 50 ML VIAL INFIL ONE (08:00)
[2022-10-09 08:26] LABS: BUN Creatinine Ratio 27.8 (10-20); Calcium 8.5 mg/dl (8.6-10.3); Creatinine Clr Calc Pharmacy 142.6 ml/min; Est GFR (African American) 146.8 ml/min; Est GFR (Non-African American) 126.6 ml/min; Magnesium 1.9 mg/dl (1.7-2.4); Phosphorus 3.2 mg/dl (2.5-4.9)
--- NOTE | 2022-10-09 09:12 | Hospitalist Progress Note ---
Date of Service October 09, 2022 Assessment & Plan (1) Seizure-like activity: Plan: 32 yo female with non-epileptic seizures, adrenal insufficiency, and an extensive GI history including gastroparesis, ostomy placement, intractable abdominal pain, and multiple GI surgeries presents with a few-day history of worsening abdominal pain and one day of multiple seizure-like episodes. Seizure-like activity Patient with history of nonepileptic seizures which in the past have been triggered by abdominal pain Patient is to have a five-day admission at [facility] next month at their epilepsy unit for further workup Will hold off on neuro consult or antiepileptics for now Pain control plan noted below Seizure precautions Telemetry monitoring (2) Abdominal pain: Plan: Patient with extensive GI history and chronic abdominal pain Etiology for recently-worsening pain unclear Labs unremarkable Pain control: Patient controlled analgesia 0.25 mg q30 minutes hydromorphone 1 mg hydromorphone scheduled at bedtime for overnight pain Fentanyl patch will be added to pain regimen IV Acetaminophen Abdominal trigger point injections done today Continue home methocarbamol, dicyclomine, cymbalta, and gabapentin: increasing gabapentin dose Nutrition: TPN Dietitian consult ordered Trend CBC, CMP, magnesium, phosphorus (3) Nausea: Plan: Zofran 4mg IV q4h prn If zofran is ineffective, consider small spot doses of ativan as this has worked well for patient in the past Monitor respiratory rate closely for respiratory depression with use of ativan and BELT PICKER pump (4) Right ankle sprain: Plan: Occurred in July; right foot is in an orthopedic boot PT/OT ordered, as patient was supposed to begin outpatient PT tomorrow boot precludes SCDs (5) Adrenal insufficiency: Plan: Continue home steroids (6) Chronic malnutrition: Plan: Dietition consult placed nutrition: TPN Patient cannot tolerate vitamin supplements in TPN (7) Gastrostomy tube in place: Plan: Previously failed enteral feeds, continue TPN (8) DVT prophylaxis: Plan: Lovenox Plan FEN: TPN Code status: full code DVT ppx: lovenox PT/OT: ordered Case management: consulted d/t complex needs Dispo: med/telemetry Admission and Anticipated Discharge Date Admission Date: October 08, 2022 Supervising Physician Co-Signing Physician Notes I personally examined the patient and verified all solorzano points of history and exam, discussed case, and agree with decision making with Son Mcintyre MS2 a bit of a bad day pain graves. discussed strategies and she opts to proceed with multimodal pain management - would prefer better pain control/better quality of life - still wants to pursue intestinal transplant but also knows that might not end up being an option that comes to fruition and also knows that it might not solve her issues. discussed 12mcg fentanyl patch, titrate as needed, for now BELT PICKER for breakthrough - eventually transitioning to PO dilauded. discussed uptitration of gabapentin and possibly increase in cymbalta. vitals noted nad but is fatigued. abdominal wall trigger points again noted - see procedure note for injections. skin no rashes no pallor or icterus Uncontrolled pain with subsequent pain induced pseudoseizuresPCA, fentanyl patch, increase gabapentin 300/300/600. trigger point injections. continue to work on nausea as well. Was not entirely clear is if the pain is purely her chronic adhesional and motility driven pain (compounded by her chronic neuro psycho genic pain milieu from having had such severe chronic pain for so long), versus any new anatomic/obstructive/motility issues. lovenox DVT proph Subjective Pilar slept better last night due to better pain control. Compared to last evening pain is worse this morning. No improvement in the severe nausea. She is hoping for improvement from the trigger point injections. Review of Systems Review of Systems: All systems reviewed & are unremarkable except as noted in HPI & below Physical Exam Physical Exam: Constitutional: No acute distress. Lying in bed. HEENT: Moist mucous membranes. CV: Regular rate and rhythm, no murmurs/rubs/gallops. Resp: Lungs clear to auscultation bilaterally, no wheezes, rales, or rhonchi appreciated. No increased work of breathing and normal respiratory rate. GI: soft, nondistended, no rebound or guarding. Abdominal tenderness to palpation in all quadrants. Specific points of tenderness to left abdomen. Abdominal ostomy in right lower quadrant, no surrounding erythema or edema. MSK: right foot in orthopedic boot Neuro: alert and oriented x3 Results & Data Results & Data Vital Signs (Past 12 Hours) Vital Signs Temp Pulse Pulse Resp BP BP Pulse Ox 10/09/22 07:45 36.6 C 88 18 104/72 96 10/09/22 07:29 78 10/09/22 04:20 36.6 C 90 16 97/65 L 96 10/08/22 21:58 96 H 10/08/22 23:19 36.6 C 88 16 115/79 98 O2 Del Method 10/09/22 07:45 Room Air 10/09/22 07:29 10/09/22 04:20 Room Air 10/08/22 21:58 10/08/22 23:19 Room Air
[2022-10-09] MEDS: FLUDROCORTISONE ACETATE 0.1 MG TAB PO SCH ×2 (09:32→21:19)
[2022-10-09] MEDS: METHOCARBAMOL 750 MG TABLET PO SCH ×3 (09:33→21:18)
[2022-10-09] MEDS: HYDROCORTISONE 10 MG TAB PO SCH ×2 (09:33→14:55)
[2022-10-09] MEDS: FAMOTIDINE 20 MG TAB PO SCH ×2 (09:33→21:18)
[2022-10-09] MEDS: DICYCLOMINE HCL 20 MG TAB PO PRN ×2 (09:34→22:28)
[2022-10-09] MEDS: PYRIDOXINE HCL 50 MG TAB PO SCH (09:34)
[2022-10-09] MEDS: DULoxetine HCL 60 MG CAP PO SCH (09:34)
[2022-10-09] MEDS: PANTOprazole 40 MG TAB PO SCH (09:34)
[2022-10-09] MEDS: GABAPENTIN 250 MG/5 ML 470 ML BTL PO SCH ×3 (09:38→22:16)
[2022-10-09] MEDS ORDERED: HYDROmorphone INJ 0.5 MG/0.5 ML SYR IV STA (09:50)
[2022-10-09] MEDS ORDERED: HYDROmorphone INJ 1 MG/ML SYRINGE IV STA (14:00)
[2022-10-09] MEDS: HEPARIN 100 UNIT/ML 5ML FLUSH FLUSH PRN (15:00)
[2022-10-09] MEDS ORDERED: HYOSCYAMINE SULFATE 0.125 MG TAB PO PRN (16:10)
[2022-10-09] MEDS ORDERED: fentaNYL 12 MCG/HR TDSY TD SCH (19:30)
--- NOTE | 2022-10-09 19:30 | Communication Note ---
Date of Service: October 09, 2022 Abdominal wall trigger point injections Informed consent obtained, risk/benefits/alternatives outlined, patient would like to proceed with abdominal wall trigger point injections Area cleansed with alcohol swabs and Betadine, sterile gloves, trigger points isolated with palpation with sterile glove/alcohol swab, and utilizing 22-gauge syringe, trigger points x4 injected with approximately 1 mL of lidocaine each. Patient tolerated well. Hemostasis essentially spontaneous, although Band-Aids applied to each site of injection. Patient tolerated procedure well, stable condition after.
--- NOTE | 2022-10-09 19:34 | Billing Data ---
Date of Service October 09, 2022 Coding Level of Care Code 57654 SUB INP/OBS CARE 3/50MIN Comment also did abdominal wall trigger point injections x4
[2022-10-09] MEDS ORDERED: CENTRAL TPN IV SCH (21:00)
[2022-10-09] MEDS ORDERED: [UNRECOGNIZED DRUG - OTHER] IV SCH (21:00)
[2022-10-09] MEDS ORDERED: CLINOLIPID 20% IV FAT EMULSION 250 ML IV SCH (21:00)
[2022-10-09] MEDS: FEXOFENADINE HCL 180 MG TAB PO SCH (21:19)
[2022-10-09] MEDS: ENOXAPARIN INJ 40 MG/0.4 ML SYR SQ SCH (21:20)
[2022-10-09] MEDS: HYDROmorphone INJ 1 MG/ML SYRINGE IV SCH (22:28)
[2022-10-10] MEDS: ACETAMINOPHEN 1,000 MG/100 ML VIAL IV SCH (00:14)
[2022-10-10] MEDS: LORazepam 2 MG/1 ML VIAL IV PRN ×3 (00:37→18:27)
[2022-10-10] MEDS: CHECK fentaNYL PATCH PLACEMENT SCH ×4 (00:38→23:11)
[2022-10-10] MEDS ORDERED: STOP CLINOLIPID SCH (03:00)
[2022-10-10] MEDS: HYDROmorphone PCA 30 MG/30 ML IV PRN (07:41)
[2022-10-10] MEDS: SODIUM CHLORIDE 0.9% 1000ML 1,000 ML IV SCH (07:46)
[2022-10-10] MEDS ORDERED: HYDROmorphone INJ 0.5 MG/0.5 ML SYR IV STA ×2 (07:53→13:21)
[2022-10-10 09:00] LABS: BUN Creatinine Ratio 25.9 (10-20); Calcium 8.8 mg/dl (8.6-10.3); Creatinine Clr Calc Pharmacy 142.6 ml/min; Est GFR (African American) 146.8 ml/min; Est GFR (Non-African American) 126.6 ml/min; Phosphorus 3.9 mg/dl (2.5-4.9)
[2022-10-10] MEDS: ONDANSETRON INJ 2 MG/ML 2 ML VIAL IV PRN (09:45)
[2022-10-10] MEDS: FLUDROCORTISONE ACETATE 0.1 MG TAB PO SCH ×2 (09:47→21:20)
[2022-10-10] MEDS: METHOCARBAMOL 750 MG TABLET PO SCH ×3 (09:48→21:21)
[2022-10-10] MEDS: FAMOTIDINE 20 MG TAB PO SCH ×2 (09:48→21:20)
[2022-10-10] MEDS: PYRIDOXINE HCL 50 MG TAB PO SCH (09:49)
[2022-10-10] MEDS: HYDROCORTISONE 10 MG TAB PO SCH ×2 (09:49→15:35)
[2022-10-10] MEDS: DULoxetine HCL 60 MG CAP PO SCH (09:50)
[2022-10-10] MEDS: PANTOprazole 40 MG TAB PO SCH (09:50)
[2022-10-10] MEDS: GABAPENTIN 250 MG/5 ML 470 ML BTL PO SCH ×3 (09:53→21:39)
--- NOTE | 2022-10-10 10:04 | Hospitalist Progress Note ---
Date of Service October 10, 2022 Assessment & Plan (1) Seizure-like activity: Plan: 32 yo female with non-epileptic seizures, adrenal insufficiency, and an extensive GI history including gastroparesis, ostomy placement, intractable abdominal pain, and multiple GI surgeries presents with a few-day history of worsening abdominal pain and one day of multiple seizure-like episodes. Seizure-like activity Patient with history of nonepileptic seizures which in the past have been triggered by abdominal pain Patient is to have a five-day admission at [facility] next month at their epilepsy unit for further workup Will hold off on neuro consult or antiepileptics for now Pain control plan noted below Seizure precautions Telemetry monitoring (2) Abdominal pain: Plan: Patient with extensive GI history and chronic abdominal pain Etiology for recently-worsening pain unclear Labs unremarkable Pain control: Patient controlled analgesia 0.25 mg q30 minutes hydromorphone for breakthrough, consider transitioning to PO once dose more regular Fentanyl patch 12 mcg in PM IV Acetaminophen Abdominal trigger point injections done today Continue home methocarbamol, dicyclomine, cymbalta, and gabapentin: increasing gabapentin dos: at 300, 300, 600 - slowly titrate up Nutrition: TPN Trend CBC, CMP, magnesium, phosphorus (3) Nausea: Plan: Zofran 4mg IV q4h prn If zofran is ineffective, consider small spot doses of ativan as this has worked well for patient in the past Monitor respiratory rate closely for respiratory depression with use of ativan and SPLITTER OPERATOR pump (4) Right ankle sprain: Plan: Occurred in July; right foot is in an orthopedic boot PT/OT ordered boot precludes SCDs (5) Adrenal insufficiency: Plan: Continue home steroids (6) Chronic malnutrition: Plan: Dietition consult placed nutrition: TPN Patient cannot tolerate vitamin supplements in TPN (7) Gastrostomy tube in place: Plan: Previously failed enteral feeds, continue TPN (8) DVT prophylaxis: Plan: Lovenox Plan FEN: TPN Code status: full code DVT ppx: lovenox PT/OT: ordered Case management: consulted d/t complex needs Dispo: med/telemetry Admission and Anticipated Discharge Date Admission Date: October 08, 2022 Supervising Physician Co-Signing Physician Notes I personally examined the patient and verified all solorzano points of history and exam, discussed case, and agree with decision making with Son GARSIA and Dr Nevaerz Pain about the same, nausea may be slightly better. Vitals noted, in general she is awake and alert pleasant no distress. Does appear quite fatigued. Breathing unlabored no accessory muscle use good effort. Skin shows no rashes no pallor or icterus. Neuro without focal deficits. Uncontrolled pain with subsequent pain induced pseudoseizuresPCA, yesterday r esumed fentanyl patchfollow for response, might increase tomorrow, and yesterday increased gabapentin 300/300/600if not groggy, tomorrow probably will increase tomorrow. trigger point injections done on 10/09improvement in nausea makes me optimistic that the trigger point injections at least helped with this some, her lower trigger points might be related to more of that twisting abdominal pain, certainly too soon to really gauge her response. Was not entirely clear is if the pain is purely her chronic adhesional and motility driven pain (compounded by her chronic neuro psycho genic pain milieu from having had such severe chronic pain for so long), versus any new anatomic/obstructive/motility issues. lovenox DVT proph Subjective Pilar slept well but is still having significant pain this morning. Is maybe seeing a small improvement in the severe nausea since the trigger point injections. Has not noticed an increase in ostomy output (still less than usual). Had a pseudoseizure this afternoon due to significant pain. Pain not well controlled but patient is okay with moving slowly to find a good regimen. Review of Systems Review of Systems: All systems reviewed & are unremarkable except as noted in HPI & below Physical Exam Physical Exam: Constitutional: No acute distress. HEENT: Moist mucous membranes. CV: Regular rate and rhythm, no murmurs/rubs/gallops. Resp: Lungs clear to auscultation bilaterally, no wheezes, rales, or rhonchi appreciated. No increased work of breathing and normal respiratory rate. GI: soft, nondistended, no rebound or guarding. Abdominal tenderness to palpation in all quadrants with some bruising at trigger point locations. Abdominal ostomy in right lower quadrant, no surrounding erythema or edema. MSK: right foot in orthopedic boot Neuro: alert and oriented x3 Results & Data Results & Data Vital Signs (Past 12 Hours) Vital Signs Temp Pulse Pulse Resp BP Pulse Ox O2 Del Method 10/10/22 07:30 Room Air 10/10/22 07:33 36.8 C 90 18 105/72 97 Room Air 10/10/22 02:56 36.5 C 89 16 110/75 95 Room Air 10/09/22 22:04 95 H 10/09/22 22:53 36.8 C 86 16 112/75 96 Room Air O2 Flow Rate 10/10/22 07:30 0 10/10/22 07:33 10/10/22 02:56 10/09/22 22:04 10/09/22 22:53
--- NOTE | 2022-10-10 16:15 | Billing Data ---
Date of Service October 10, 2022 Coding Level of Care Code 71466 SUB INP/OBS CARE
[2022-10-10] MEDS ORDERED: CENTRAL TPN IV SCH (21:00)
[2022-10-10] MEDS ORDERED: [UNRECOGNIZED DRUG - OTHER] IV SCH (21:00)
[2022-10-10] MEDS: DICYCLOMINE HCL 20 MG TAB PO PRN (21:19)
[2022-10-10] MEDS: ENOXAPARIN INJ 40 MG/0.4 ML SYR SQ SCH (21:19)
[2022-10-10] MEDS: FEXOFENADINE HCL 180 MG TAB PO SCH (21:20)
[2022-10-10] MEDS: HYDROmorphone INJ 1 MG/ML SYRINGE IV SCH (22:31)
[2022-10-11] MEDS: LORazepam 2 MG/1 ML VIAL IV PRN ×4 (00:38→23:37)
[2022-10-11] MEDS ORDERED: HYDROmorphone INJ 0.5 MG/0.5 ML SYR IV STA ×2 (05:17→05:30)
--- NOTE | 2022-10-11 06:48 | Hospitalist Progress Note ---
Date of Service October 11, 2022 Assessment & Plan (1) Seizure-like activity: Plan: 32 y/o female with non-epileptic seizures, adrenal insufficiency, and an extensive GI history including gastroparesis, ostomy placement, intractable abdominal pain, and multiple GI surgeries presented with worsening abdominal pain triggering multiple non-epileptic seizures now with decreasing episodes and slowly improving pain control. #Seizure-like activity Patient with history of nonepileptic seizures which in the past have been triggered by abdominal pain. Plan for EMU admission in October at [facility]. Will hold off on AEDs at this time Pain control plan noted below Seizure precautions Telemetry monitoring #Abdominal Pain #Extensive GI History #G-Tube Dependence #Chronic Malnutrition Patient with extensive GI history and chronic abdominal pain. Etiology unclear for most recent pain flare. Labs unremarkable. Imaging unchanged. Continue home methocarbamol, dicyclomine, Cymbalta, and gabapentin. Adjusting pain regimen daily - see below. Pain Regimen: ATHLETIC SCOUT 0.4 mg q30 minutes Fentanyl patch 25 mcg IV Tylenol Up-titrating gabapentin - 300 QAM 600 Qmid day, 600 HS Abdominal trigger point injections done 10/09 Nausea Regimen: 1. IV Zofran Q4H PRN 2. can trial Ativan as this has worked in the past Nutrition: TPN, dietitian consulted, no vitamin supplements in TPN (patient does not tolerate) Trend CBC, CMP, magnesium, phosphorus #Right Ankle Sprain Occurred in July; right foot is in an orthopedic boot PT/OT ordered boot precludes SCDs #Adrenal Insufficiency Continue home steroids FEN: TPN Code status: full code DVT ppx: lovenox PT/OT: ordered Case Management: consulted d/t complex needs Dispo: med/telemetry (2) Abdominal pain: (3) Nausea: (4) Right ankle sprain: (5) Adrenal insufficiency: (6) Chronic malnutrition: (7) Gastrostomy tube in place: (8) DVT prophylaxis: Admission and Anticipated Discharge Date Admission Date: October 08, 2022 Supervising Physician Co-Signing Physician Notes I personally examined the patient and verified all solorzano points of history and exam, discussed case, and agree with decision making with Dr Carlos Gaytan about the same, nausea is a little better. Vitals noted, in general she is awake and alert pleasant no distress. Abdomen soft nondistended mostly tender lower and mid abdomen, no guarding rebound or rigidity. Breathing unlabored no accessory muscle use good effort. Skin shows no rashes no pallor or icterus. Neuro without focal deficits. Uncontrolled pain with subsequent pain induced pseudoseizuressomatic pain: No clear need for surgical interventions, managing the chronic part of the painescalate fentanyl patch to 25, escalate Dilaudid ATHLETIC SCOUT for breakthrough for now. Somatic/neuropathic overlap:trigger points present, injected in the seems to help with the nauseatoo soon to see if it will help with the pain, can certainly try a repeat injection next weekand discussed with patient to follow how she is doing with nausea, given that a trigger point injection clearly seems to have helped with this. Neuropathic: Escalate gabapentin. RABBLE FURNACE TENDER facilitation: Present, but I feel that the polypharmacy risk of escalating her Cymbalta is probably higher than the pain benefit at this time. Psychiatric: Continue with pain psychology, continue with distraction techniques, dog should be allowed to visit, ongoing reassurance and education. lovenox DVT proph Subjective Patient had pain overnight. Improved with one time dose of Dilaudid. Improved this AM. No other complaints. No f/c/CP/SOB. Review of Systems Review of Systems: See HPI Physical Exam Physical Exam: Constitutional: No acute distress. HEENT: Moist mucous membranes. CV: RRR no m/r/g Resp: CTAB no wheezing GI: Nondistended, MSK: right foot in orthopedic boot Neuro: alert and oriented x3 Psych: appropriate mood and affect Skin: no rashes or bruising appreciated Results & Data Results & Data Vital Signs (Past 12 Hours) Vital Signs Temp Pulse Pulse Resp BP Pulse Ox O2 Del Method 10/11/22 04:11 36.6 C 89 18 96/66 L 96 Room Air 10/10/22 23:37 94 H 10/10/22 23:24 37.1 C 101 H 18 113/74 96 Room Air 10/10/22 20:10 36.8 C 114 H 18 114/79 97 Room Air Laboratory Results 10/07/22 06:26 10/11/22 07:13 Resident Activity Tracking Resident Involvement: Resident Care Provided Care Provided: Adult Hospital Medicine
[2022-10-11] MEDS: CHECK fentaNYL PATCH PLACEMENT SCH ×3 (07:05→23:33)
[2022-10-11 08:01] LABS: Anion Gap 4 (3-11); BUN Creatinine Ratio 34.7 (10-20); Blood Urea Nitrogen 17 mg/dl (6-23); Calcium 8.8 mg/dl (8.6-10.3); Carbon Dioxide 28 mmol/L (21-32); Chloride 108 mmol/L (98-107); Creatinine Clr Calc Pharmacy 157.2 ml/min; Est GFR (African American) > 150.0 ml/min; Est GFR (Non-African American) 130.7 ml/min; Glucose 111 mg/dl (70-99(Fasting)); Phosphorus 3.9 mg/dl (2.5-4.9); Sodium 140 mmol/L (136-145)
[2022-10-11] MEDS: GABAPENTIN 250 MG/5 ML 470 ML BTL PO SCH ×3 (08:46→20:52)
[2022-10-11] MEDS: FLUDROCORTISONE ACETATE 0.1 MG TAB PO SCH ×2 (08:47→20:53)
[2022-10-11] MEDS: METHOCARBAMOL 750 MG TABLET PO SCH ×3 (08:47→20:52)
[2022-10-11] MEDS: FAMOTIDINE 20 MG TAB PO SCH ×2 (08:47→20:55)
[2022-10-11] MEDS: PANTOprazole 40 MG TAB PO SCH (08:48)
[2022-10-11] MEDS: HYDROCORTISONE 10 MG TAB PO SCH ×2 (08:48→13:20)
[2022-10-11] MEDS: PYRIDOXINE HCL 50 MG TAB PO SCH (08:48)
[2022-10-11] MEDS: DULoxetine HCL 60 MG CAP PO SCH (08:48)
[2022-10-11] MEDS: SODIUM CHLORIDE 0.9% 1000ML 1,000 ML IV SCH (08:49)
[2022-10-11] MEDS: DICYCLOMINE HCL 20 MG TAB PO PRN ×3 (08:50→22:05)
[2022-10-11] MEDS: ONDANSETRON INJ 2 MG/ML 2 ML VIAL IV PRN ×2 (08:53→20:51)
[2022-10-11] MEDS: HYDROmorphone PCA 30 MG/30 ML IV PRN ×2 (11:17→16:08)
[2022-10-11] MEDS: fentaNYL 25 MCG/HR TDSY TD SCH (13:13)
--- NOTE | 2022-10-11 15:58 | Billing Data ---
Date of Service October 11, 2022 Coding Level of Care Code 69034 SUB INP/OBS CARE
--- NOTE | 2022-10-11 15:58 | Billing Data ---
Date of Service October 11, 2022 Coding Level of Care Code 30285 SUB INP/OBS CARE
--- NOTE | 2022-10-11 17:59 | Communication Note ---
Date of Service: October 11, 2022 have been discussing her pain syndrome with her as mind/body and multifactorial - adonis this to give to her and to help conceptualize the multifactorial nature of her pain syndrome
[2022-10-11] MEDS ORDERED: fentaNYL 25 MCG/HR TDSY TD SCH (19:30)
[2022-10-11] MEDS: ENOXAPARIN INJ 40 MG/0.4 ML SYR SQ SCH (20:52)
[2022-10-11] MEDS: FEXOFENADINE HCL 180 MG TAB PO SCH (20:54)
[2022-10-11] MEDS ORDERED: CENTRAL TPN IV SCH (21:00)
[2022-10-11] MEDS ORDERED: CLINOLIPID 20% IV FAT EMULSION 250 ML IV SCH (21:00)
[2022-10-11] MEDS ORDERED: [UNRECOGNIZED DRUG - OTHER] IV SCH (21:00)
[2022-10-11] MEDS: HYDROmorphone INJ 1 MG/ML SYRINGE IV SCH (22:04)
[2022-10-12] MEDS ORDERED: STOP CLINOLIPID SCH (03:00)
[2022-10-12] MEDS: LORazepam 2 MG/1 ML VIAL IV PRN ×3 (05:51→23:29)
--- NOTE | 2022-10-12 06:56 | Hospitalist Progress Note ---
Date of Service October 12, 2022 Assessment & Plan (1) Seizure-like activity: Plan: 32 y/o female with non-epileptic seizures, adrenal insufficiency, and an extensive GI history including gastroparesis, ostomy placement, intractable abdominal pain, and multiple GI surgeries presented with worsening abdominal pain triggering multiple non-epileptic seizures now with decreasing episodes and adequate pain control. #Seizure-like activity Patient with history of nonepileptic seizures which in the past have been triggered by abdominal pain. Plan for EMU admission in October at [facility]. Will hold off on AEDs at this time Pain control plan noted below Seizure precautions Telemetry monitoring #Abdominal Pain #Extensive GI History #G-Tube Dependence #Chronic Malnutrition Patient with extensive GI history and chronic abdominal pain. Etiology unclear for most recent pain flare. Labs unremarkable. Imaging unchanged. Continue home methocarbamol, dicyclomine, Cymbalta, and gabapentin. Pain controlled on current regimen. Will monitor TITLE CLERK AUTOMOBILE usage and transition to similar MME dosing of PO as tolerated. Will encourage trialing PO prior to using TITLE CLERK AUTOMOBILE unless pain unmanageable. We do not have liquid dilaudid on formulary - will have family bring in home med to trial. Pain Regimen: TITLE CLERK AUTOMOBILE 0.5 mg q30 minutes PO liquid dilaudid trial prior to using TITLE CLERK AUTOMOBILE Fentanyl patch 25 mcg IV Tylenol Up-titrating gabapentin - 300 QAM 600 Qmid day, 600 HS Abdominal trigger point injections done 10/09 Nausea Regimen: 1. IV Zofran Q4H PRN 2. can trial Ativan as this has worked in the past Nutrition: TPN, dietitian consulted, no vitamin supplements in TPN (patient does not tolerate) Trend CBC, CMP, magnesium, phosphorus #Right Ankle Sprain Occurred in July; right foot is in an orthopedic boot PT/OT ordered boot precludes SCDs #Adrenal Insufficiency Continue home steroids FEN: TPN Code status: full code DVT ppx: lovenox PT/OT: ordered Case Management: consulted d/t complex needs Dispo: med/telemetry (2) Abdominal pain: (3) Nausea: (4) Right ankle sprain: (5) Adrenal insufficiency: (6) Chronic malnutrition: (7) Gastrostomy tube in place: (8) DVT prophylaxis: Admission and Anticipated Discharge Date Admission Date: October 08, 2022 Supervising Physician Co-Signing Physician Notes I personally examined the patient and verified all solorzano points of history and exam, discussed case, and agree with decision making with Dr Gonzalez Pain doing a bit better today. No new or different complaints. Discussed plan of giving trial to p.o. pain medication (keeping the TITLE CLERK AUTOMOBILE as orderedbut giving trial to p.o. first so that she can see if her pain is under decent control for home, and utilizing TITLE CLERK AUTOMOBILE for backup/breakthrough, or for pain that seems to be coming on too abruptly for p.o. to work). Our pharmacy does not have oral liquid Dilaudidbut after Dr. Gonzalez discussed with pharmacy, a new prescription to her outpatient pharmacy ([facility]) would allow them to dispense as from home. Vitals noted, in general she is awake and alert pleasant no distress. HEENT normocephalic atraumatic mucous membranes moist. Breathing unlabored no accessory muscle use good effort. Skin shows no rashes no pallor or icterus Uncontrolled pain with subsequent pain induced pseudoseizuressomatic pain: No clear need for surgical interventions, managing the chronic part of the jose ncontinue fentanyl patch at 25, continue Dilaudid TITLE CLERK AUTOMOBILE for breakthrough for now, but try 4 mg Dilaudid p.o. as needed pain as initial therapy and reserve IV TITLE CLERK AUTOMOBILE for breakthrough or rapid onset of pain. Somatic/neuropathic overlap:trigger points present, injected in the seems to help with the nauseaand possibly some with pain, given that she is doing better today, can certainly try a repeat injection next weekand given that her symptoms could have multifaceted causes, we discussed trying to start to parse apart what feels different based on response to trigger point injections to be able to help titrate repeat injections as an outpatient. Neuropathic: Escalated gabapentin. ASSISTANT TENNIS PROFESSIONAL facilitati on: Present, but I feel that the polypharmacy risk of escalating her Cymbalta is probably higher than the pain benefit at this time. Psychiatric: Continue with pain psychology, continue with distraction techniques, dog should be allowed to visit, ongoing reassurance and education. lovenox DVT proph Subjective No acute overnight events. Pain adequately controlled. Improved nausea. No complaints this AM. Review of Systems Review of Systems: See HPI Physical Exam Physical Exam: Constitutional: No acute distress. HEENT: AT NC MMM CV: RRR no m/r/g Resp: CTAB no wheezing GI: soft, non-distended, mildly tender around ostomy site - suprapubic area, otherwise non-tender MSK: right foot in orthopedic boot Neuro: alert and oriented x3 Psych: appropriate mood and affect Skin: no rashes or bruising appreciated Results & Data Results & Data Vital Signs (Past 12 Hours) Vital Signs Temp Pulse Pulse Resp BP Pulse Ox O2 Del Method 10/12/22 04:04 36.7 C 103 H 18 92/62 L 97 Room Air 10/11/22 23:44 36.8 C 95 H 18 104/71 98 Room Air 10/11/22 23:30 89 10/11/22 21:25 Room Air 10/11/22 19:42 36.8 C 132 H 18 91/67 L 94 Room Air Laboratory Results 10/07/22 06:26 10/12/22 06:47 Resident Activity Tracking Resident Involvement: Resident Care Provided Care Provided: Adult Hospital Medicine
[2022-10-12 07:34] LABS: BUN Creatinine Ratio 37.7 (10-20); Calcium 8.7 mg/dl (8.6-10.3); Creatinine Clr Calc Pharmacy 145.3 ml/min; Est GFR (African American) 147.7 ml/min; Est GFR (Non-African American) 127.4 ml/min; Phosphorus 4.6 mg/dl (2.5-4.9); Potassium 4.4 mmol/L (3.5-5.1)
[2022-10-12] MEDS: CHECK fentaNYL PATCH PLACEMENT SCH ×3 (07:50→23:30)
[2022-10-12] MEDS: GABAPENTIN 250 MG/5 ML 470 ML BTL PO SCH ×3 (08:21→21:36)
[2022-10-12] MEDS: SODIUM CHLORIDE 0.9% 1000ML 1,000 ML IV SCH (08:21)
[2022-10-12] MEDS: HYDROCORTISONE 10 MG TAB PO SCH ×2 (08:22→13:08)
[2022-10-12] MEDS: PYRIDOXINE HCL 50 MG TAB PO SCH (08:23)
[2022-10-12] MEDS: DULoxetine HCL 60 MG CAP PO SCH (08:23)
[2022-10-12] MEDS: PANTOprazole 40 MG TAB PO SCH (08:23)
[2022-10-12] MEDS: METHOCARBAMOL 750 MG TABLET PO SCH ×3 (08:23→21:30)
[2022-10-12] MEDS: FAMOTIDINE 20 MG TAB PO SCH ×2 (08:24→21:31)
[2022-10-12] MEDS: FLUDROCORTISONE ACETATE 0.1 MG TAB PO SCH ×2 (08:24→21:31)
[2022-10-12] MEDS: DICYCLOMINE HCL 20 MG TAB PO PRN ×3 (08:24→21:30)
[2022-10-12] MEDS ORDERED: NON-FORMULARY PATIENT'S OWN MED SCH (13:15)
[2022-10-12] MEDS: ONDANSETRON INJ 2 MG/ML 2 ML VIAL IV PRN ×2 (15:11→18:42)
--- NOTE | 2022-10-12 15:33 | Billing Data ---
Date of Service October 12, 2022 Coding Level of Care Code 71229 SUB INP/OBS CARE
[2022-10-12] MEDS ORDERED: PATIENT'S OWN CONTROLLED MED 1 PO PRN (17:27)
[2022-10-12] MEDS: HYDROMORPHONE GT PRN (19:15)
[2022-10-12] MEDS ORDERED: [UNRECOGNIZED DRUG - OTHER] IV SCH (21:00)
[2022-10-12] MEDS ORDERED: GABAPENTIN 250 MG/5 ML 470 ML BTL PO SCH (21:00)
[2022-10-12] MEDS ORDERED: CENTRAL TPN IV SCH (21:00)
[2022-10-12] MEDS: FEXOFENADINE HCL 180 MG TAB PO SCH (21:29)
[2022-10-12] MEDS: ENOXAPARIN INJ 40 MG/0.4 ML SYR SQ SCH (21:31)
[2022-10-12] MEDS: HYDROmorphone INJ 1 MG/ML SYRINGE IV SCH (21:36)
[2022-10-13] MEDS: HYDROMORPHONE GT PRN ×3 (02:30→18:37)
--- NOTE | 2022-10-13 06:57 | Hospitalist Progress Note ---
Date of Service October 13, 2022 Assessment & Plan (1) Seizure-like activity: Plan: 32 y/o female with non-epileptic seizures, adrenal insufficiency, and an extensive GI history including gastroparesis, ostomy placement, intractable abdominal pain, and multiple GI surgeries presented with worsening abdominal pain triggering multiple non-epileptic seizures now with decreasing episodes and adequate pain control. Seizure-like activity Patient with history of nonepileptic seizures which in the past have been triggered by abdominal pain. Plan for EMU admission in October at [facility]. Will hold off on AEDs at this time Had two episodes of nonepileptic seizures within the past day Pain control plan noted below Seizure precautions Telemetry monitoring Abdominal Pain: Extensive GI History, G-Tube Dependence, Chronic Malnutrition Patient with extensive GI history and chronic abdominal pain. Etiology unclear for most recent pain flare. Labs unremarkable. Imaging unchanged. Continue home methocarbamol, dicyclomine, Cymbalta, and gabapentin. Will monitor PUT IN BEAT ADJUSTER usage and transition to similar MME dosing of PO as tolerated. Will encourage trialing PO prior to using PUT IN BEAT ADJUSTER unless pain unmanageable. We do not have liquid Dilaudid on formulary - had family bring in home med to trial. Patient states that she felt she got behind on pain control yesterday which lead to significant pain this morning. Pain Regimen: PUT IN BEAT ADJUSTER 0.5 mg q30 minutes PO liquid Dilaudid (4mq q4h PRN) trial prior to using PUT IN BEAT ADJUSTER Fentanyl patch 25 mcg q72h IV Tylenol Gabapentin - 300 QAM 600 Qmid day, 600 HS Abdominal trigger point injections done 10/09 Based on rough calculations, patient currently receiving ~200 MME daily. Ideally would like to transition away from PUT IN BEAT ADJUSTER but given some symptom relief at midday- will continue at current regimen for now. * Will reevaluate tomorrow- would consider increasing Fentanyl patch to 50mg and decreasing PUT IN BEAT ADJUSTER to 0.25mg. Nausea Regimen: 1. IV Zofran Q4H PRN 2. Can trial Ativan as this has worked in the past Nutrition: TPN, dietitian consulted, no vitamin supplements in TPN (patient does not tolerate) Trend CBC, CMP, magnesium, phosphorus Right Ankle Sprain Occurred in July; right foot is in an orthopedic boot PT/OT ordered boot precludes SCDs Adrenal Insufficiency Continue home steroids FEN: TPN Code status: full code DVT ppx: Lovenox PT/OT: ordered Case Management: consulted d/t complex needs Dispo: med/telemetry (2) Abdominal pain: (3) Nausea: (4) Right ankle sprain: (5) Adrenal insufficiency: (6) Chronic malnutrition: (7) Gastrostomy tube in place: (8) DVT prophylaxis: Admission and Anticipated Discharge Date Admission Date: October 08, 2022 Supervising Physician Co-Signing Physician Notes I also saw the patient and confirmed solorzano portions of the history and physical examination. I agree with the impression and plan as noted in the resident documentation Midmorning exam, patient actually notes some improvement in her pain overall. She has noted increased ostomy output for the last 12-18 hours, and overall feels as if things are headed in the "right direction." Mother is at bedside. Exam 91/58, 78, 12, 36.7, 97% on room air Heart regular Respirations nonlabored Impression and plan Pain crises (chronic pain) Pseudoseizure Initial dose of 0.25 mg IV Dilaudid this morning seems to have helped, she is feeling good this morning so would not make any changes at this point and allow her to feel some relief/rest Will look at p.o. conversions in a.m. and how we can transition her to her outpatient regimen Additional per resident documentation Bayron Quezada is a 32 y/o female with non-epileptic seizures, adrenal insufficiency, and an extensive GI history including gastroparesis, ostomy placement, intractable abdominal pain, and multiple GI surgeries presented with worsening abdominal pain triggering multiple non-epileptic seizures now with decreasing episodes and adequate pain control. 10/13: Patient seen and examined at bedside. Discussed with nursing- patient had two nonepileptic seizures in past day (1 overnight and again this morning shortly before this encounter). Patient's mother is at bedside providing support. Patient states that yesterday she tried to utilize more PO Dilaudid before utilizing her PUT IN BEAT ADJUSTER- however she feels that she got "behind" on the pain control overnight and was in considerable pain with nausea this morning. She recalls that in the past 12-24 hours she has had increased output from her ostomy which has been encouraging. She denies any chest pain or shortness of breath. Review of Systems Review of Systems: As per above Physical Exam Constitutional: + ill appearing and + in distress Eyes: Anicteric sclerae ENMT: External ears and nose normal. Moist mucous membranes. Respiratory: normal respiratory effort, lungs clear to auscultation Cardiovascular: Rate/Rhythm: regular rate and regular rhythm Extremities: no edema Gastrointestinal (Abdomen): Left lower abdominal pain. Abdomen soft, nondistended. Ostomy in place. Musculoskeletal: Moves all limbs independently. Skin: no rashes, warm and dry Psychiatric: A+Ox3, euthymic affect Results & Data Results & Data Vital Signs (Past 12 Hours) Vital Signs Temp Pulse Pulse Resp BP Pulse Ox O2 Del Method 10/12/22 22:02 116 H 10/13/22 02:25 36.6 C 84 18 95/65 L 97 Room Air 10/12/22 23:11 Room Air 10/12/22 22:36 36.5 C 110 H 16 103/71 97 Room Air 10/12/22 19:56 36.3 C L 113 H 16 105/72 97 Room Air Resident Activity Tracking Resident Involvement: Resident Care Provided Care Provided: Adult Hospital Medicine
[2022-10-13 07:29] LABS: BUN Creatinine Ratio 34.5 (10-20); Calcium 8.8 mg/dl (8.6-10.3); Est GFR (African American) 145.9 ml/min; Est GFR (Non-African American) 125.9 ml/min; Phosphorus 4.1 mg/dl (2.5-4.9); Potassium 3.7 mmol/L (3.5-5.1)
[2022-10-13] MEDS: DICYCLOMINE HCL 20 MG TAB PO PRN (09:02)
[2022-10-13] MEDS: PANTOprazole 40 MG TAB PO SCH (09:02)
[2022-10-13] MEDS: HYDROCORTISONE 10 MG TAB PO SCH ×2 (09:03→15:21)
[2022-10-13] MEDS: METHOCARBAMOL 750 MG TABLET PO SCH ×3 (09:04→20:55)
[2022-10-13] MEDS: FLUDROCORTISONE ACETATE 0.1 MG TAB PO SCH ×2 (09:05→21:03)
[2022-10-13] MEDS: DULoxetine HCL 60 MG CAP PO SCH (09:05)
[2022-10-13] MEDS: PYRIDOXINE HCL 50 MG TAB PO SCH (09:05)
[2022-10-13] MEDS: FAMOTIDINE 20 MG TAB PO SCH ×2 (09:05→20:55)
[2022-10-13] MEDS: GABAPENTIN 250 MG/5 ML 470 ML BTL PO SCH ×3 (09:15→21:03)
[2022-10-13] MEDS: CHECK fentaNYL PATCH PLACEMENT SCH ×2 (09:18→15:22)
[2022-10-13] MEDS: ONDANSETRON INJ 2 MG/ML 2 ML VIAL IV PRN (10:17)
[2022-10-13] MEDS ORDERED: HYDROmorphone INJ 0.5 MG/0.5 ML SYR IV STA (10:27)
[2022-10-13] MEDS: SODIUM CHLORIDE 0.9% 1000ML 1,000 ML IV SCH (18:35)
[2022-10-13] MEDS: ENOXAPARIN INJ 40 MG/0.4 ML SYR SQ SCH (20:54)
[2022-10-13] MEDS: FEXOFENADINE HCL 180 MG TAB PO SCH (20:54)
[2022-10-13] MEDS ORDERED: CENTRAL TPN IV SCH (21:00)
[2022-10-13] MEDS ORDERED: CLINOLIPID 20% IV FAT EMULSION 250 ML IV SCH (21:00)
[2022-10-13] MEDS ORDERED: [UNRECOGNIZED DRUG - OTHER] IV SCH (21:00)
[2022-10-13] MEDS: HYDROmorphone INJ 1 MG/ML SYRINGE IV SCH (21:03)
[2022-10-13] MEDS: LORazepam 2 MG/1 ML VIAL IV PRN (23:30)
[2022-10-14] MEDS: HYDROMORPHONE GT PRN ×4 (00:35→22:40)
[2022-10-14] MEDS: CHECK fentaNYL PATCH PLACEMENT SCH ×3 (00:36→14:54)
[2022-10-14] MEDS ORDERED: STOP CLINOLIPID SCH (03:00)
[2022-10-14] MEDS: SODIUM CHLORIDE 0.9% 1000ML 1,000 ML IV SCH (08:33)
[2022-10-14] MEDS: HYDROmorphone PCA 30 MG/30 ML IV PRN (08:34)
[2022-10-14 08:42] LABS: BUN Creatinine Ratio 36.4 (10-20); Bilirubin,Total 0.1 mg/dl (0.2-1.0); Calcium 8.7 mg/dl (8.6-10.3); Creatinine Clr Calc Pharmacy 151.4 ml/min; Est GFR (African American) 145.9 ml/min; Est GFR (Non-African American) 125.9 ml/min; Phosphorus 4.1 mg/dl (2.5-4.9); Potassium 3.9 mmol/L (3.5-5.1)
[2022-10-14] MEDS: FAMOTIDINE 20 MG TAB PO SCH ×2 (08:54→21:08)
[2022-10-14] MEDS: FLUDROCORTISONE ACETATE 0.1 MG TAB PO SCH ×2 (08:55→21:08)
[2022-10-14] MEDS: DICYCLOMINE HCL 20 MG TAB PO PRN ×2 (08:55→14:22)
[2022-10-14] MEDS: PANTOprazole 40 MG TAB PO SCH (08:55)
[2022-10-14] MEDS: DULoxetine HCL 60 MG CAP PO SCH (08:55)
[2022-10-14] MEDS: PYRIDOXINE HCL 50 MG TAB PO SCH (08:55)
[2022-10-14] MEDS: GABAPENTIN 250 MG/5 ML 470 ML BTL PO SCH ×3 (08:55→21:15)
[2022-10-14] MEDS: METHOCARBAMOL 750 MG TABLET PO SCH ×3 (08:56→21:08)
[2022-10-14] MEDS: HYDROCORTISONE 10 MG TAB PO SCH ×2 (08:56→14:53)
--- NOTE | 2022-10-14 10:04 | Hospitalist Progress Note ---
Date of Service October 14, 2022 Assessment & Plan (1) Seizure-like activity: Plan: 32 y/o female with non-epileptic seizures, adrenal insufficiency, and an extensive GI history including gastroparesis, ostomy placement, intractable abdominal pain, and multiple GI surgeries presented with worsening abdominal pain triggering multiple non-epileptic seizures now with decreasing episodes and adequate pain control. Acute exacerbation of chronic Abdominal Pain: Extensive GI History, G-Tube Dependence, Chronic Malnutrition Patient with extensive GI history and chronic abdominal pain. Etiology unclear for most recent pain flare. Labs unremarkable. Imaging unchanged. Continue home methocarbamol, dicyclomine, Cymbalta, and gabapentin. Will monitor TARGET MAN usage and transition to similar MME dosing of PO as tolerated. Will encourage trialing PO prior to using TARGET MAN unless pain unmanageable. Liquid Dilaudid not on formulary - using home dose. Pain overall better controlled today. Pain Regimen: TARGET MAN 0.5 mg q30 minutes PO liquid Dilaudid (4mq q4h PRN) trial prior to using TARGET MAN Fentanyl patch 25 mcg q72h IV Tylenol Gabapentin - 300 QAM 600 Qmid day, 600 HS Abdominal trigger point injections done 10/09 Based on rough calculations, patient currently receiving ~200 MME daily. Ideally would like to transition away from TARGET MAN * Discussed option of increasing Fentanyl patch- was recently weaned off of Fentanyl patch entirely as outpatient but resumed in recent weeks. will increase dose further and follow closely. Nausea Regimen: 1. IV Zofran Q4H PRN 2. Can trial Ativan as this has worked in the past Nutrition: TPN, dietitian consulted, no vitamin supplements in TPN (patient does not tolerate) Trend CBC, CMP, magnesium, phosphorus Seizure-like activity Patient with history of nonepileptic seizures which in the past have been triggered by abdominal pain. Plan for EMU admission in October at [facility]. Will hold off on AEDs at this time Had one episode of a nonepileptic seizure this morning Pain control plan noted below Seizure precautions Telemetry monitoring Right Ankle Sprain Occurred in July; right foot is in an orthopedic boot PT/OT ordered boot precludes SCDs Adrenal Insufficiency Continue home steroids FEN: TPN Code status: full code DVT ppx: Lovenox PT/OT: ordered Case Management: consulted d/t complex needs Dispo: med/telemetry (2) Abdominal pain: (3) Nausea: (4) Right ankle sprain: (5) Adrenal insufficiency: (6) Chronic malnutrition: (7) Gastrostomy tube in place: (8) DVT prophylaxis: Admission and Anticipated Discharge Date Admission Date: October 08, 2022 Supervising Physician Co-Signing Physician Notes Resident Physician Supervision Note: I independently interviewed and examined the patient and verified the solorzano history and physical, reviewed labs and image studies and agree with resident findings and care plan. Bayron Quezada is a 32 y/o female with non-epileptic seizures, adrenal insufficiency, and an extensive GI history including gastroparesis, ostomy placement, intractable abdominal pain, and multiple GI surgeries presented with worsening abdominal pain triggering multiple non-epileptic seizures now with decreasing episodes and adequate pain control. 10/14: Patient seen and examined at bedside. Her mother notes that she had one seizure this morning but they both felt pain is under better control today. Patient states she feels like she is using the TARGET MAN less. Nursing reports that she had some nausea later in the day. Notes she has had some pain around her stoma, she feels it is related to her increased ostomy output. Denies shortness of breath or chest pain. Review of Systems Review of Systems: As per above Physical Exam Constitutional: + ill appearing and + in distress Eyes: Anicteric sclera. ENMT: External ears and nose normal. Moist mucous membranes. Respiratory: normal respiratory effort, lungs clear to auscultation Cardiovascular: Rate/Rhythm: regular rate and regular rhythm Extremities: no edema Gastrointestinal (Abdomen): Ostomy in place. Non-distended. Skin: no rashes, warm and dry Psychiatric: A+Ox3, euthymic affect Results & Data Results & Data Vital Signs (Past 12 Hours) Vital Signs Temp Pulse Pulse Resp BP Pulse Ox O2 Del Method 10/14/22 07:59 36.7 C 87 18 101/68 98 Room Air 10/14/22 05:59 83 10/14/22 07:10 Room Air 10/14/22 04:10 93 H 16 93/58 L 96 Room Air 10/14/22 03:45 36.7 C 95 H 18 95/62 L 91 Room Air 10/14/22 02:46 90 10/13/22 23:12 36.8 C 94 H 18 114/80 95 Room Air Resident Activity Tracking Resident Involvement: Resident Care Provided Care Provided: Adult Hospital Medicine
[2022-10-14] MEDS: LORazepam 2 MG/1 ML VIAL IV PRN ×2 (10:20→17:09)
[2022-10-14] MEDS: fentaNYL 25 MCG/HR TDSY TD SCH ×2 (11:13→11:14)
[2022-10-14] MEDS: ONDANSETRON INJ 2 MG/ML 2 ML VIAL IV PRN (12:54)
[2022-10-14] MEDS ORDERED: HYDROmorphone INJ 0.5 MG/0.5 ML SYR IV STA (13:26)
--- NOTE | 2022-10-14 13:44 | Pharmacy Report ---
PHA: Parenteral Nutrition Con - Date of Service October 14, 2022 - Scope Pharmacy was consulted on 10/07/22 to manage parenteral nutrition orders for this patient. - Objective Height: 5 ft 6 in Weight: 71.4 kg Diet: NPO Intake & Output (24hrs):: Intake & Output 10/12/22 10/13/22 10/14/22 10/15/22 06:59 06:59 06:59 06:59 Intake Total 1339.533 / 9752.487 9590.183 / 9360.677 8931.5 / 1848.5 506.533 / 506.533 Output Total 401 / 401 100 / 100 Balance 1339.533 / 3760.186 3205.183 / 3538.443 2870.5 / 1748.5 506.533 / 506.533 Weight 63.7 kg 65 kg 71.4 kg Laboratory Data (Last 24 Hr):: 10/14/22 07:51 Sodium 140 Potassium 3.9 Chloride 106 Carbon Dioxide 28 BUN 20 Creatinine 0.55 L Glucose 99 Calcium 8.7 Phosphorus 4.1 Magnesium 2.0 Total Bilirubin 0.1 L AST 36 Alkaline Phosphatase 66 Nutrition Assessment:: Please refer to the Notes section of the EMR for the most recent rivet maker note. - Assessment * Macronutrients at goal, continuing every other day lipids (holding today) * Electrolytes remain stable - no changes today * Continuing cyclic TPN over 18 hours * Patient still requiring IV hydromorphone for abdominal pain control * Confirmed no plan for immediate discharge today - Plan For day 8 of PN administration, the following will be ordered: Macronutrients Amino acids 80 grams/day Dextrose 140 grams/day Lipids 50 grams every other day (hold today) Micronutrients Sodium chloride 30 mEq Sodium acetate 50 mEq Potassium phosphate 15 mMol Potassium acetate 50 mEq Magnesium sulfate 12.18 mEq Calcium gluconate 9.3 mEq Trace Elements 1 mL Total volume 1091 mL to be infused over 18 hrs will provide 796 kcal/day Labs, as indicated, will be ordered per protocol Pharmacy will continue to follow and adjust parenteral nutrition orders on a daily basis. Thank you for allowing us to participate in the care of this patient.
[2022-10-14] MEDS: fentaNYL 12 MCG/HR TDSY TD SCH (18:40)
[2022-10-14] MEDS ORDERED: CENTRAL TPN IV SCH (21:00)
[2022-10-14] MEDS ORDERED: [UNRECOGNIZED DRUG - OTHER] IV SCH (21:00)
[2022-10-14] MEDS: FEXOFENADINE HCL 180 MG TAB PO SCH (21:08)
[2022-10-14] MEDS: ENOXAPARIN INJ 40 MG/0.4 ML SYR SQ SCH (21:08)
[2022-10-14] MEDS: HYDROmorphone INJ 1 MG/ML SYRINGE IV SCH (21:10)
[2022-10-15] MEDS ORDERED: CHECK fentaNYL PATCH PLACEMENT SCH
[2022-10-15] MEDS: LORazepam 2 MG/1 ML VIAL IV PRN ×3 (00:36→17:26)
[2022-10-15] MEDS: DICYCLOMINE HCL 20 MG TAB PO PRN ×4 (00:39→23:05)
[2022-10-15] MEDS: CHECK fentaNYL PATCH PLACEMENT SCH ×3 (00:46→15:05)
--- NOTE | 2022-10-15 07:34 | Hospitalist Progress Note ---
Date of Service October 15, 2022 Assessment & Plan (1) Seizure-like activity: Plan: 32 y/o female with non-epileptic seizures, adrenal insufficiency, and an extensive GI history including gastroparesis, ostomy placement, intractable abdominal pain, and multiple GI surgeries presented with worsening abdominal pain triggering multiple non-epileptic seizures now with decreasing episodes and adequate pain control. Acute exacerbation of chronic Abdominal Pain: Extensive GI History, G-Tube Dependence, Chronic Malnutrition Patient with extensive GI history and chronic abdominal pain. Etiology unclear for most recent pain flare. Labs unremarkable. Imaging unchanged. Continue home methocarbamol, dicyclomine, Cymbalta, and gabapentin. Will monitor PLASTIC EYE TECHNICIAN usage and transition to similar MME dosing of PO as tolerated. Will encourage trialing PO prior to using PLASTIC EYE TECHNICIAN unless pain unmanageable. Liquid Dilaudid not on formulary - using home dose. Pain overall better controlled today. Pain Regimen: PLASTIC EYE TECHNICIAN 0.5 mg q30 minutes PO liquid Dilaudid (4mq q4h PRN) trial prior to using PLASTIC EYE TECHNICIAN Fentanyl patch 25 mcg q72h + 12 mcg q72h IV Tylenol Gabapentin - 300 QAM 600 Qmid day, 600 HS Abdominal trigger point injections done 10/09 Based on rough calculations, patient currently receiving ~200 MME daily. Ideally would like to transition away from PLASTIC EYE TECHNICIAN * Discussed option of increasing Fentanyl patch- was recently weaned off of Fentanyl patch entirely as outpatient but resumed in recent weeks. dose increased - now on 37mcg Nausea Regimen: 1. IV Zofran Q4H PRN 2. Can trial Ativan as this has worked in the past Nutrition: TPN, dietitian consulted, no vitamin supplements in TPN (patient does not tolerate) Trend CBC, CMP, magnesium, phosphorus Seizure-like activity Patient with history of nonepileptic seizures which in the past have been triggered by abdominal pain. Plan for EMU admission in October at [facility]. Will hold off on AEDs at this time Had one episode of a nonepileptic seizure this morning Pain control plan noted below Seizure precautions Telemetry monitoring Right Ankle Sprain Occurred in July; right foot is in an orthopedic boot PT/OT ordered boot precludes SCDs Adrenal Insufficiency Continue home steroids FEN: TPN Code status: full code DVT ppx: Lovenox PT/OT: ordered Case Management: consulted d/t complex needs Dispo: med/telemetry (2) Abdominal pain: (3) Nausea: (4) Right ankle sprain: (5) Adrenal insufficiency: (6) Chronic malnutrition: (7) Gastrostomy tube in place: (8) DVT prophylaxis: Admission and Anticipated Discharge Date Admission Date: October 08, 2022 Supervising Physician Co-Signing Physician Notes Resident Physician Supervision Note: I independently interviewed and examined the patient and verified the solorzano history and physical, reviewed labs and image studies and agree with resident findings and care plan. Bayron Quezada is a 32 y/o female with non-epileptic seizures, adrenal insufficiency, and an extensive GI history including gastroparesis, ostomy placement, intractable abdominal pain, and multiple GI surgeries presented with worsening abdominal pain triggering multiple non-epileptic seizures now with decreasing episodes and adequate pain control. 10/15: Patient was seen and examined at bedside. No acute events overnight. Patient states that last night went better, feels that the increased Fentanyl patch has been helping. She states that her goal is to be home by this weekend so she can attend her friend's baby shower on Thursday. Her mother notes that we will have to get TPN delivered at home before then for this to be possible. Review of Systems Review of Systems: As per above Physical Exam Constitutional: + ill appearing and comfortable Eyes: Anicteric sclera ENMT: External nose and ears normal. Moist mucous membranes Respiratory: normal respiratory effort, lungs clear to auscultation Cardiovascular: Rate/Rhythm: regular rate and regular rhythm Extremities: no edema Gastrointestinal (Abdomen): Ostomy in place. Nondistended Skin: no rashes, warm and dry Psychiatric: A+Ox3, euthymic affect Results & Data Results & Data Vital Signs (Past 12 Hours) Vital Signs Temp Pulse Pulse Resp BP Pulse Ox O2 Del Method 10/15/22 07:04 36.7 C 82 16 93/61 L 96 Room Air 10/15/22 04:32 36.6 C 87 18 95/62 L 95 Room Air 10/15/22 00:47 90 10/14/22 23:49 36.8 C 98 H 18 102/71 97 Room Air 10/14/22 19:38 36.6 C 115 H 18 97/68 L 97 Room Air Resident Activity Tracking Resident Involvement: Resident Care Provided Care Provided: Adult Hospital Medicine
[2022-10-15] MEDS: HYDROMORPHONE GT PRN ×2 (08:23→17:21)
[2022-10-15] MEDS: GABAPENTIN 250 MG/5 ML 470 ML BTL PO SCH ×3 (08:23→21:07)
[2022-10-15] MEDS: SODIUM CHLORIDE 0.9% 1000ML 1,000 ML IV SCH (08:24)
[2022-10-15] MEDS: FAMOTIDINE 20 MG TAB PO SCH ×2 (08:24→21:09)
[2022-10-15] MEDS: METHOCARBAMOL 750 MG TABLET PO SCH ×3 (08:24→21:09)
[2022-10-15] MEDS: FLUDROCORTISONE ACETATE 0.1 MG TAB PO SCH ×2 (08:24→21:09)
[2022-10-15] MEDS: PANTOprazole 40 MG TAB PO SCH (08:24)
[2022-10-15] MEDS: DULoxetine HCL 60 MG CAP PO SCH (08:24)
[2022-10-15] MEDS: HYDROCORTISONE 10 MG TAB PO SCH ×2 (08:24→13:52)
[2022-10-15] MEDS: PYRIDOXINE HCL 50 MG TAB PO SCH (08:24)
[2022-10-15 10:04] LABS: Calcium 8.8 mg/dl (8.6-10.3); Magnesium 2.1 mg/dl (1.7-2.4); Potassium 3.7 mmol/L (3.5-5.1)
[2022-10-15 10:10] LABS: BUN Creatinine Ratio 37.7 (10-20); Creatinine Clr Calc Pharmacy 145.3 ml/min; Est GFR (African American) 147.7 ml/min; Est GFR (Non-African American) 127.4 ml/min; Phosphorus 4.1 mg/dl (2.5-4.9)
[2022-10-15] MEDS: ONDANSETRON INJ 2 MG/ML 2 ML VIAL IV PRN (13:52)
[2022-10-15] MEDS ORDERED: HYDROmorphone INJ 0.5 MG/0.5 ML SYR IV STA (19:09)
[2022-10-15] MEDS ORDERED: [UNRECOGNIZED DRUG - OTHER] IV SCH (21:00)
[2022-10-15] MEDS ORDERED: CLINOLIPID 20% IV FAT EMULSION 250 ML IV SCH (21:00)
[2022-10-15] MEDS ORDERED: CENTRAL TPN IV SCH (21:00)
[2022-10-15] MEDS: FEXOFENADINE HCL 180 MG TAB PO SCH (21:08)
[2022-10-15] MEDS: ENOXAPARIN INJ 40 MG/0.4 ML SYR SQ SCH (21:08)
[2022-10-15] MEDS: HYDROmorphone INJ 1 MG/ML SYRINGE IV SCH (23:05)
[2022-10-16] MEDS: LORazepam 2 MG/1 ML VIAL IV PRN ×4 (00:15→22:48)
[2022-10-16] MEDS: CHECK fentaNYL PATCH PLACEMENT SCH ×3 (00:29→15:25)
[2022-10-16] MEDS ORDERED: HYDROmorphone INJ 1 MG/ML SYRINGE IV STA (01:37)
[2022-10-16] MEDS: ONDANSETRON INJ 2 MG/ML 2 ML VIAL IV PRN ×2 (01:43→15:37)
[2022-10-16] MEDS ORDERED: HYDROmorphone INJ 2 MG/ML SYR/VIAL IV STA ×2 (02:54→23:44)
[2022-10-16] MEDS ORDERED: STOP CLINOLIPID SCH (03:00)
[2022-10-16 03:21] LABS: Hematocrit (blood only) 38.2 % (37.0-47.0); Hemoglobin 13.2 g/dl (12.0-16.0); Mean Corpuscular Hemoglobin 29.2 pg (25.0-34.0); Mean Corpuscular Hgb Conc 34.6 g/dL (32.0-36.0); Mean Corpuscular Volume 84.5 fL (80.0-100.0); Mean Platelet Volume 11.6 fL (9.4-12.4); Platelet Count 291 K/uL (130-400); RDW Coefficient of Variation 18.9 % (11.5-14.5); RDW Standard Deviation 58.1 fL (36.4-46.3); Red Blood Count 4.52 M/uL (4.20-5.40); White Blood Count 8.45 K/ul (4.8-10.8)
[2022-10-16 03:41] LABS: Magnesium 2.3 mg/dl (1.7-2.4); Phosphorus 3.4 mg/dl (2.5-4.9)
[2022-10-16 03:43] LABS: Albumin Globulin Ratio 1.8 (0.9-2); Albumin Level 4.4 gm/dl (3.4-5.0); BUN Creatinine Ratio 27.8 (10-20); Calcium 9.2 mg/dl (8.6-10.3); Creatinine Clr Calc Pharmacy 142.6 ml/min; Est GFR (African American) 146.8 ml/min; Est GFR (Non-African American) 126.6 ml/min; Globulin 2.4 gm/dl (2.5-4.0); Potassium 3.6 mmol/L (3.5-5.1); Total Protein 6.8 gm/dl (6.0-8.3)
--- NOTE | 2022-10-16 06:57 | Hospitalist Progress Note ---
Date of Service October 16, 2022 Assessment & Plan (1) Seizure-like activity: Plan: 32 y/o female with non-epileptic seizures, adrenal insufficiency, and an extensive GI history including gastroparesis, ostomy placement, intractable abdominal pain, and multiple GI surgeries presented with worsening abdominal pain triggering multiple non-epileptic seizures now with decreasing episodes and adequate pain control. Acute exacerbation of chronic Abdominal Pain: Extensive GI History, G-Tube Dependence, Chronic Malnutrition Patient with extensive GI history and chronic abdominal pain. Etiology unclear for most recent pain flare. Labs unremarkable. Imaging unchanged. Continue home methocarbamol, dicyclomine, Cymbalta, and gabapentin. Will monitor COMMISSIONER OF RELOCATION SERVICES usage and transition to similar MME dosing of PO as tolerated. Will encourage trialing PO prior to using COMMISSIONER OF RELOCATION SERVICES unless pain unmanageable. Liquid Dilaudid not on formulary - using home dose. Had rough night last night due to episode of non-epileptic seizure - no med titration today Currently receiving ~200 MME daily. Fentanyl patch- was weaned off of entirely as outpatient but resumed in recent weeks. Dose further increased to 37mcg in attempt to wean COMMISSIONER OF RELOCATION SERVICES use Pain Regimen: COMMISSIONER OF RELOCATION SERVICES 0.5 mg q30 minutes PO liquid Dilaudid (4mq q4h PRN) trial prior to using COMMISSIONER OF RELOCATION SERVICES Fentanyl patch 25 mcg q72h + 12 mcg q72h IV Tylenol Gabapentin - 300 QAM 600 Qmid day, 600 HS Abdominal trigger point injections done 10/09 Nausea Regimen: 1. IV Zofran Q4H PRN 2. Can trial Ativan as this has worked in the past Nutrition: TPN, dietitian consulted, no vitamin supplements in TPN (patient does not tolerate) -TPN ordered for home, with famotidine and thiamine Trend CBC, CMP, magnesium, phosphorus Seizure-like activity Patient with history of nonepileptic seizures which in the past have been triggered by abdominal pain. Plan for EMU admission in October at [facility]. Will hold off on AEDs at this time Had one episode of a nonepileptic seizure overnight and later this afternoon Pain control plan noted below Seizure precautions Telemetry monitoring Right Ankle Sprain Occurred in July; right foot is in an orthopedic boot PT/OT ordered boot precludes SCDs Adrenal Insufficiency Continue home steroids FEN: TPN Code status: full code DVT ppx: Lovenox PT/OT: ordered Case Management: consulted d/t complex needs Dispo: med/telemetry (2) Abdominal pain: (3) Nausea: (4) Right ankle sprain: (5) Adrenal insufficiency: (6) Chronic malnutrition: (7) Gastrostomy tube in place: (8) DVT prophylaxis: Admission and Anticipated Discharge Date Admission Date: October 08, 2022 Supervising Physician Co-Signing Physician Notes Resident Physician Supervision Note: I independently interviewed and examined the patient and verified the solorzano history and physical, reviewed labs and image studies and agree with resident findings and care plan. Bayron Quezada is a 32 y/o female with non-epileptic seizures, adrenal insufficiency, and an extensive GI history including gastroparesis, ostomy placement, intractable abdominal pain, and multiple GI surgeries presented with worsening abdominal pain triggering multiple non-epileptic seizures now with decreasing episodes and adequate pain control. 10/16: Patient seen and examined at bedside. Discussed with night team- patient had increased pain overnight and required an additional total 3mg IV Dilaudid for pain control. She also had a longer seizure overnight. Her mother notes that after having more pain medication last night she was able to sleep. An additional seizure episode happened this afternoon. She still has increased pain around her stoma- also notes that she had more bile in the ostomy output overnight. Denies shortness of breath, chest pain, fever, body aches, chills. No dysuria. Review of Systems Review of Systems: As per above Physical Exam Constitutional: + ill appearing and comfortable Eyes: Anicteric sclerae. ENMT: External ears and nose normal. Moist mucous membranes. Respiratory: normal respiratory effort, lungs clear to auscultation Cardiovascular: Rate/Rhythm: regular rate and regular rhythm Extremities: no edema Gastrointestinal (Abdomen): Ostomy in place. Abdomen nondistended. Skin: no rashes, warm and dry Psychiatric: A+Ox3, euthymic affect Results & Data Results & Data Vital Signs (Past 12 Hours) Vital Signs Temp Pulse Pulse Resp BP Pulse Ox O2 Del Method 10/16/22 06:30 99 H 18 93/61 L 10/15/22 23:56 88 10/15/22 23:37 36.7 C 97 H 18 138/81 99 Room Air Resident Activity Tracking Resident Involvement: Resident Care Provided Care Provided: Adult Hospital Medicine
--- NOTE | 2022-10-16 07:41 | XRay Report ---
KUB HISTORY: Generalized abdominal pain. COMPARISON: KUB 10/06/2022. FINDINGS: A gastrojejunostomy tube is unchanged in position. Prior cholecystectomy. No dilated loops of bowel to suggest obstruction. Residual contrast seen within the rectal stump. No renal calculi. N o ureteral calculi. No pneumoperitoneum or pneumatosis. IMPRESSION: Nonobstructive bowel gas pattern. ACT 112: Negative or not required by law. Electronically signed by: Victor Hugo Snowden M.D. 10/16/2022 7:40 AM
[2022-10-16] MEDS: HYDROCORTISONE 10 MG TAB PO SCH ×2 (09:53→14:04)
[2022-10-16] MEDS: FAMOTIDINE 20 MG TAB PO SCH ×2 (09:53→21:32)
[2022-10-16] MEDS: DULoxetine HCL 60 MG CAP PO SCH (09:53)
[2022-10-16] MEDS: FLUDROCORTISONE ACETATE 0.1 MG TAB PO SCH ×2 (09:53→21:33)
[2022-10-16] MEDS: PYRIDOXINE HCL 50 MG TAB PO SCH (09:54)
[2022-10-16] MEDS: PANTOprazole 40 MG TAB PO SCH (09:54)
[2022-10-16] MEDS: METHOCARBAMOL 750 MG TABLET PO SCH ×3 (09:54→21:33)
[2022-10-16] MEDS: HYDROMORPHONE GT PRN ×3 (09:55→21:30)
[2022-10-16] MEDS: GABAPENTIN 250 MG/5 ML 470 ML BTL PO SCH ×3 (10:00→19:34)
[2022-10-16] MEDS: HEPARIN 100 UNIT/ML 5ML FLUSH FLUSH PRN (15:37)
[2022-10-16] MEDS ORDERED: HYDROmorphone INJ 0.5 MG/0.5 ML SYR IV STA (15:48)
[2022-10-16] MEDS: SODIUM CHLORIDE 0.9% 1000ML 1,000 ML IV SCH (18:16)
[2022-10-16] MEDS: HYDROmorphone INJ 1 MG/ML SYRINGE IV SCH (19:34)
[2022-10-16] MEDS ORDERED: [UNRECOGNIZED DRUG - OTHER] IV SCH (21:00)
[2022-10-16] MEDS ORDERED: CENTRAL TPN IV SCH (21:00)
[2022-10-16] MEDS: ENOXAPARIN INJ 40 MG/0.4 ML SYR SQ SCH (21:31)
[2022-10-16] MEDS: DICYCLOMINE HCL 20 MG TAB PO PRN (21:31)
[2022-10-16] MEDS: FEXOFENADINE HCL 180 MG TAB PO SCH (21:33)
[2022-10-17] MEDS: HYDROmorphone PCA 30 MG/30 ML IV PRN (00:14)
[2022-10-17] MEDS: CHECK fentaNYL PATCH PLACEMENT SCH ×3 (00:23→15:24)
[2022-10-17] MEDS: HYDROMORPHONE GT PRN ×2 (02:22→06:06)
[2022-10-17] MEDS: LORazepam 2 MG/1 ML VIAL IV PRN ×3 (06:06→22:00)
--- NOTE | 2022-10-17 07:20 | Hospitalist Progress Note ---
Date of Service October 17, 2022 Assessment & Plan (1) Seizure-like activity: Plan: Pilar is a 32 year-old female with non-epileptic seizures, adrenal insufficiency, and an extensive GI history including gastroparesis, ostomy placement, intractable abdominal pain, and multiple GI surgeries presented with worsening abdominal pain triggering multiple non-epileptic seizures. Acute exacerbation of chronic Abdominal Pain: Extensive GI History, G-Tube Dependence, Chronic Malnutrition Patient with extensive GI history and chronic abdominal pain. Etiology unclear for most recent pain flare. Labs unremarkable. Imaging unchanged. Continue home methocarbamol, dicyclomine, Cymbalta, and gabapentin. Will monitor ASSISTANCE COORDINATOR usage and transition to similar MME dosing of PO as tolerated. Will encourage trialing PO prior to using ASSISTANCE COORDINATOR unless pain unmanageable. Liquid Dilaudid not on formulary - using home dose. Had rough night last night due to episode of non-epileptic seizure - will try scheduling liquid Dilaudid over PRN today Currently receiving ~200 MME daily. Fentanyl patch- was weaned off of entirely as outpatient but resumed in recent weeks. Dose further increased to 37mcg in attempt to wean ASSISTANCE COORDINATOR use Pain Regimen: ASSISTANCE COORDINATOR 0.5 mg q30 minutes PO liquid Dilaudid (4mq q4h scheduled), ideally prior to using ASSISTANCE COORDINATOR Fentanyl patch 25 mcg q72h + 12 mcg q72h IV Tylenol Gabapentin - 300 QAM 600 Qmid day, 600 HS Abdominal trigger point injections done 10/09 Nausea Regimen: 1. IV Zofran Q4H PRN 2. PRN Ativan for nausea Nutrition: TPN, dietitian consulted, no vitamin supplements in TPN (patient does not tolerate) -TPN ordered for home, with famotidine and thiamine Trend CBC, CMP, magnesium, phosphorus Seizure-like activity Patient with history of nonepileptic seizures which in the past have been triggered by abdominal pain. Plan for EMU admission in October at [facility]. Will hold off on AEDs at this time Had one episode of a nonepileptic seizure overnight Pain control plan noted below Seizure precautions Telemetry monitoring Right Ankle Sprain Occurred in July; right foot is in an orthopedic boot PT/OT ordered boot precludes SCDs Adrenal Insufficiency Continue home steroids FEN: TPN Code status: full code DVT ppx: Lovenox PT/OT: ordered Case Management: consulted d/t complex needs Dispo: med/telemetry (2) Abdominal pain: (3) Nausea: (4) Right ankle sprain: (5) Adrenal insufficiency: (6) Chronic malnutrition: (7) Gastrostomy tube in place: (8) DVT prophylaxis: Admission and Anticipated Discharge Date Admission Date: October 08, 2022 Supervising Physician Co-Signing Physician Notes Resident Physician Supervision Note: I independently interviewed and examined the patient and verified the solorzano history and physical, reviewed labs and image studies and agree with resident findings and care plan. Bayron Quezada is a 32 year-old female with non-epileptic seizures, adrenal insufficiency, and an extensive GI history including gastroparesis, ostomy placement, intractable abdominal pain, and multiple GI surgeries presented with worsening abdominal pain triggering multiple non-epileptic seizures. 10/17: Patient seen and examined at bedside. Night time reports that patient had additional seizure activity overnight and was given IV Dilaudid. Pilar notes that her heightened pain seems to occur prior to increased ostomy output. Patient's mom notes that trying to schedule the liquid Dilaudid might be helpful (over PRN q4h) to help keep on top of the pain. Denies shortness of breath, chest pain. Review of Systems Review of Systems: As per above Physical Exam Constitutional: No acute distress. Eyes: Anicteric sclerae ENMT: External ears and nose normal, moist mucous membranes Respiratory: normal respiratory effort, lungs clear to auscultation Cardiovascular: Rate/Rhythm: regular rate and regular rhythm Extremities: no edema Gastrointestinal (Abdomen): Ostomy in place. Skin: no rashes, warm and dry Psychiatric: A+Ox3, euthymic affect Results & Data Results & Data Vital Signs (Past 12 Hours) Vital Signs Temp Pulse Pulse Resp BP Pulse Ox O2 Del Method 10/17/22 04:20 36.6 C 97 H 20 97/66 L 98 Room Air 10/17/22 00:25 111 H 10/16/22 23:52 37.2 C 120 H 24 109/73 100 Room Air 10/16/22 20:09 36.8 C 119 H 24 104/71 95 Room Air Resident Activity Tracking Resident Involvement: Resident Care Provided Care Provided: Adult Hospital Medicine
[2022-10-17 07:59] LABS: Hematocrit (blood only) 34.9 % (37.0-47.0); Hemoglobin 11.1 g/dl (12.0-16.0); Mean Corpuscular Hemoglobin 27.4 pg (25.0-34.0); Mean Corpuscular Hgb Conc 31.8 g/dL (32.0-36.0); Mean Corpuscular Volume 86.2 fL (80.0-100.0); Mean Platelet Volume 11.1 fL (9.4-12.4); Platelet Count 231 K/uL (130-400); RDW Coefficient of Variation 18.6 % (11.5-14.5); RDW Standard Deviation 58.9 fL (36.4-46.3); Red Blood Count 4.05 M/uL (4.20-5.40); White Blood Count 5.75 K/ul (4.8-10.8)
[2022-10-17 08:09] LABS: BUN Creatinine Ratio 33.3 (10-20); Creatinine Clr Calc Pharmacy 142.6 ml/min; Est GFR (African American) 146.8 ml/min; Est GFR (Non-African American) 126.6 ml/min; Phosphorus 3.9 mg/dl (2.5-4.9); Potassium 4.1 mmol/L (3.5-5.1)
[2022-10-17] MEDS ORDERED: HYDROMORPHONE HCL 1 MG/ML GT ONE (10:15)
[2022-10-17] MEDS ORDERED: PATIENT'S OWN CONTROLLED MED 1 PO ONE (10:15)
[2022-10-17] MEDS: FLUDROCORTISONE ACETATE 0.1 MG TAB PO SCH ×2 (10:28→21:53)
[2022-10-17] MEDS: FAMOTIDINE 20 MG TAB PO SCH ×2 (10:28→21:53)
[2022-10-17] MEDS: DULoxetine HCL 60 MG CAP PO SCH (10:28)
[2022-10-17] MEDS: GABAPENTIN 250 MG/5 ML 470 ML BTL PO SCH ×3 (10:29→21:52)
[2022-10-17] MEDS: HYDROCORTISONE 10 MG TAB PO SCH ×2 (10:29→13:48)
[2022-10-17] MEDS: METHOCARBAMOL 750 MG TABLET PO SCH ×3 (10:30→21:53)
[2022-10-17] MEDS: PANTOprazole 40 MG TAB PO SCH (10:30)
[2022-10-17] MEDS: PYRIDOXINE HCL 50 MG TAB PO SCH (10:30)
[2022-10-17] MEDS: DICYCLOMINE HCL 20 MG TAB PO PRN (10:31)
[2022-10-17] MEDS ORDERED: HYDROMORPHONE HCL 1 MG/ML GT SCH (12:00)
[2022-10-17] MEDS: fentaNYL 25 MCG/HR TDSY TD SCH (12:23)
[2022-10-17] MEDS: HYDROMORPHONE HCL 1 MG/ML GT SCH ×3 (13:48→21:52)
[2022-10-17] MEDS: PATIENT'S OWN CONTROLLED MED 1 PO SCH ×3 (13:49→22:12)
[2022-10-17] MEDS ORDERED: HYDROmorphone INJ 0.5 MG/0.5 ML SYR IV STA (15:02)
[2022-10-17] MEDS: HEPARIN 100 UNIT/ML 5ML FLUSH FLUSH PRN (15:22)
[2022-10-17] MEDS: fentaNYL 12 MCG/HR TDSY TD SCH (18:02)
[2022-10-17] MEDS: HYDROmorphone INJ 1 MG/ML SYRINGE IV SCH (20:47)
[2022-10-17] MEDS: ONDANSETRON INJ 2 MG/ML 2 ML VIAL IV PRN (20:47)
[2022-10-17] MEDS: SODIUM CHLORIDE 0.9% 1000ML 1,000 ML IV SCH (20:47)
[2022-10-17] MEDS ORDERED: [UNRECOGNIZED DRUG - OTHER] IV SCH (21:00)
[2022-10-17] MEDS ORDERED: CLINOLIPID 20% IV FAT EMULSION 250 ML IV SCH (21:00)
[2022-10-17] MEDS ORDERED: CENTRAL TPN IV SCH (21:00)
[2022-10-17] MEDS: FEXOFENADINE HCL 180 MG TAB PO SCH (21:53)
[2022-10-17] MEDS: ENOXAPARIN INJ 40 MG/0.4 ML SYR SQ SCH (22:12)
[2022-10-17] MEDS ORDERED: HYDROmorphone INJ 1 MG/ML SYRINGE IV STA (23:00)
[2022-10-18] MEDS: CHECK fentaNYL PATCH PLACEMENT SCH ×3 (00:37→16:13)
[2022-10-18] MEDS ORDERED: HYDROmorphone INJ 1 MG/ML SYRINGE IV STA (00:52)
[2022-10-18] MEDS: ONDANSETRON INJ 2 MG/ML 2 ML VIAL IV PRN ×4 (01:40→19:55)
[2022-10-18] MEDS: HYDROMORPHONE HCL 1 MG/ML GT SCH ×6 (01:57→22:11)
[2022-10-18] MEDS: LORazepam 2 MG/1 ML VIAL IV PRN ×4 (01:57→23:01)
[2022-10-18] MEDS: PATIENT'S OWN CONTROLLED MED 1 PO SCH ×6 (01:57→22:28)
[2022-10-18] MEDS ORDERED: STOP CLINOLIPID SCH (03:00)
[2022-10-18] MEDS: DICYCLOMINE HCL 20 MG TAB PO PRN ×3 (04:08→21:07)
--- NOTE | 2022-10-18 07:33 | Hospitalist Progress Note ---
Date of Service October 18, 2022 Assessment & Plan (1) Seizure-like activity: Plan: Pilar is a 32 year-old female with non-epileptic seizures, adrenal insufficiency, and an extensive GI history including gastroparesis, ostomy placement, intractable abdominal pain, and multiple GI surgeries presented with worsening abdominal pain triggering multiple non-epileptic seizures. Acute exacerbation of chronic Abdominal Pain: Extensive GI History, G-Tube Dependence, Chronic Malnutrition Patient with extensive GI history and chronic abdominal pain. Etiology unclear for most recent pain flare. Labs unremarkable. Imaging unchanged. Continue home methocarbamol, dicyclomine, Cymbalta, and gabapentin. Will monitor FURNITURE REMOVALIST usage and transition to similar MME dosing of PO as tolerated. Will encourage trialing PO prior to using FURNITURE REMOVALIST unless pain unmanageable. Liquid Dilaudid not on formulary - using home dose. Currently receiving ~200 MME daily. Fentanyl patch- was weaned off of entirely as outpatient but resumed in recent weeks. Dose further increased to 37mcg in attempt to wean FURNITURE REMOVALIST use Pain Regimen: FURNITURE REMOVALIST 0.5 mg q30 minutes PO liquid Dilaudid (4mq q4h scheduled), ideally prior to using FURNITURE REMOVALIST Fentanyl patch 25 mcg q72h + 12 mcg q72h IV Tylenol Gabapentin - 300 QAM 600 Qmid day, 600 HS Abdominal trigger point injections done 10/09 Nausea Regimen: 1. IV Zofran Q4H PRN 2. PRN Ativan for nausea Nutrition: TPN, dietitian consulted, no vitamin supplements in TPN (patient does not tolerate) -TPN ordered for home, with famotidine and thiamine Trend CBC, CMP, magnesium, phosphorus Seizure-like activity Patient with history of nonepileptic seizures which in the past have been triggered by abdominal pain. Plan for EMU admission in October at [facility]. Will hold off on AEDs at this time Had one episode of a nonepileptic seizure overnight Pain control plan noted below Seizure precautions Telemetry monitoring Right Ankle Sprain Occurred in July; right foot is in an orthopedic boot PT/OT ordered boot precludes SCDs Adrenal Insufficiency Continue home steroids FEN: TPN Code status: full code DVT ppx: Lovenox PT/OT: ordered Case Management: consulted d/t complex needs Dispo: med/telemetry (2) Abdominal pain: (3) Nausea: (4) Right ankle sprain: (5) Adrenal insufficiency: (6) Chronic malnutrition: (7) Gastrostomy tube in place: (8) DVT prophylaxis: Admission and Anticipated Discharge Date Admission Date: October 08, 2022 Supervising Physician Co-Signing Physician Notes Resident Physician Supervision Note: I independently interviewed and examined the patient and verified the solorzano history and physical, reviewed labs and image studies and agree with resident findings and care plan. Bayron Quezada is a 32 year-old female with non-epileptic seizures, adrenal insufficiency, and an extensive GI history including gastroparesis, ostomy placement, intractable abdominal pain, and multiple GI surgeries presented with worsening abdominal pain triggering multiple non-epileptic seizures. 10/18: Patient seen and examined at bedside. Additional seizure event overnight. Patient and her mother note stoma pain, especially as ostomy has output. Denies shortness of breath or chest pain. Review of Systems Review of Systems: As per above Physical Exam Constitutional: comfortable Eyes: Anicteric sclerae Respiratory: Normal respiratory effort. Good air flow. Cardiovascular: Rate/Rhythm: regular rate and regular rhythm Extremities: no edema Gastrointestinal (Abdomen): Ostomy in place, abdomen soft and nondistended. Skin: no rashes, warm and dry Psychiatric: A+Ox3, euthymic affect Results & Data Results & Data Vital Signs (Past 12 Hours) Vital Signs Temp Pulse Pulse Resp BP BP Pulse Ox 10/18/22 03:59 36.7 C 101 H 16 111/76 100 10/17/22 22:03 99 H 10/18/22 00:27 36.7 C 97 H 20 105/72 96 10/17/22 19:47 36.8 C 99 H 16 106/73 97 O2 Del Method 10/18/22 03:59 Room Air 10/17/22 22:03 10/18/22 00:27 Room Air 10/17/22 19:47 Room Air Resident Activity Tracking Resident Involvement: Resident Care Provided Care Provided: Adult Hospital Medicine
[2022-10-18] MEDS: DULoxetine HCL 60 MG CAP PO SCH (08:02)
[2022-10-18] MEDS: HYDROCORTISONE 10 MG TAB PO SCH ×2 (08:03→14:38)
[2022-10-18] MEDS: FAMOTIDINE 20 MG TAB PO SCH ×2 (08:03→21:07)
[2022-10-18] MEDS: FLUDROCORTISONE ACETATE 0.1 MG TAB PO SCH ×2 (08:03→21:08)
[2022-10-18] MEDS: METHOCARBAMOL 750 MG TABLET PO SCH ×3 (08:04→21:09)
[2022-10-18] MEDS: PANTOprazole 40 MG TAB PO SCH (08:04)
[2022-10-18] MEDS: PYRIDOXINE HCL 50 MG TAB PO SCH (08:05)
[2022-10-18 08:24] LABS: Hematocrit (blood only) 36.1 % (37.0-47.0); Hemoglobin 11.4 g/dl (12.0-16.0); Mean Corpuscular Hemoglobin 27.5 pg (25.0-34.0); Mean Corpuscular Hgb Conc 31.6 g/dL (32.0-36.0); Mean Corpuscular Volume 87.2 fL (80.0-100.0); Mean Platelet Volume 11.7 fL (9.4-12.4); Platelet Count 217 K/uL (130-400); RDW Coefficient of Variation 18.5 % (11.5-14.5); RDW Standard Deviation 59.3 fL (36.4-46.3); Red Blood Count 4.14 M/uL (4.20-5.40); White Blood Count 5.49 K/ul (4.8-10.8)
[2022-10-18 08:35] LABS: BUN Creatinine Ratio 32.7 (10-20); Calcium 8.8 mg/dl (8.6-10.3); Creatinine Clr Calc Pharmacy 148.1 ml/min; Est GFR (African American) 148.6 ml/min; Est GFR (Non-African American) 128.2 ml/min; Phosphorus 4.4 mg/dl (2.5-4.9); Potassium 4.3 mmol/L (3.5-5.1)
[2022-10-18] MEDS: GABAPENTIN 250 MG/5 ML 470 ML BTL PO SCH ×3 (09:25→19:55)
[2022-10-18] MEDS ORDERED: HYDROmorphone INJ 0.5 MG/0.5 ML SYR IV STA (14:10)
[2022-10-18] MEDS: HEPARIN 100 UNIT/ML 5ML FLUSH FLUSH PRN (15:11)
[2022-10-18] MEDS ORDERED: CENTRAL TPN IV SCH (21:00)
[2022-10-18] MEDS ORDERED: [UNRECOGNIZED DRUG - OTHER] IV SCH (21:00)
[2022-10-18] MEDS: HYDROmorphone INJ 1 MG/ML SYRINGE IV SCH (21:05)
[2022-10-18] MEDS: FEXOFENADINE HCL 180 MG TAB PO SCH (21:09)
[2022-10-18] MEDS: ENOXAPARIN INJ 40 MG/0.4 ML SYR SQ SCH (21:10)
[2022-10-19] MEDS: CHECK fentaNYL PATCH PLACEMENT SCH ×3 (00:26→16:16)
[2022-10-19] MEDS ORDERED: HYDROmorphone INJ 2 MG/ML SYR/VIAL IV STA (01:08)
[2022-10-19] MEDS: HYDROMORPHONE HCL 1 MG/ML GT SCH ×6 (02:08→21:22)
[2022-10-19] MEDS: SODIUM CHLORIDE 0.9% 1000ML 1,000 ML IV SCH ×2 (05:36→13:56)
[2022-10-19] MEDS: PATIENT'S OWN CONTROLLED MED 1 PO SCH ×6 (05:37→21:21)
[2022-10-19] MEDS: ONDANSETRON INJ 2 MG/ML 2 ML VIAL IV PRN ×2 (06:09→20:09)
[2022-10-19 06:41] LABS: Hematocrit (blood only) 33.5 % (37.0-47.0); Hemoglobin 10.8 g/dl (12.0-16.0); Mean Corpuscular Hgb Conc 32.2 g/dL (32.0-36.0); Mean Corpuscular Volume 86.8 fL (80.0-100.0); Mean Platelet Volume 11.3 fL (9.4-12.4); Platelet Count 229 K/uL (130-400); RDW Coefficient of Variation 18.4 % (11.5-14.5); RDW Standard Deviation 58.7 fL (36.4-46.3); Red Blood Count 3.86 M/uL (4.20-5.40); White Blood Count 4.89 K/ul (4.8-10.8)
[2022-10-19 06:56] LABS: BUN Creatinine Ratio 32.2 (10-20); Calcium 8.5 mg/dl (8.6-10.3); Creatinine Clr Calc Pharmacy 130.5 ml/min; Est GFR (African American) 142.5 ml/min; Phosphorus 4.3 mg/dl (2.5-4.9); Potassium 3.8 mmol/L (3.5-5.1)
--- NOTE | 2022-10-19 07:31 | Hospitalist Progress Note ---
Date of Service October 19, 2022 Assessment & Plan (1) Seizure-like activity: Plan: Pilar is a 32 year-old female with non-epileptic seizures, adrenal insufficiency, and an extensive GI history including gastroparesis, ostomy placement, intractable abdominal pain, and multiple GI surgeries presented with worsening abdominal pain triggering multiple non-epileptic seizures. Acute exacerbation of chronic Abdominal Pain: Extensive GI History, G-Tube Dependence, Chronic Malnutrition Patient with extensive GI history and chronic abdominal pain. Etiology unclear for most recent pain flare. Labs unremarkable. Imaging unchanged. Continue home methocarbamol, dicyclomine, Cymbalta, and gabapentin. Will monitor SOFTWARE ENGINEER usage and transition to similar MME dosing of PO as tolerated. Will encourage trialing PO prior to using SOFTWARE ENGINEER unless pain unmanageable. Liquid Dilaudid not on formulary - using home dose. Currently receiving ~200 MME daily. Fentanyl patch- was weaned off of entirely as outpatient but resumed in recent weeks. Dose further increased to 37mcg in attempt to wean SOFTWARE ENGINEER use Pain Regimen: SOFTWARE ENGINEER 0.5 mg q30 minutes PO liquid Dilaudid (4mq q4h scheduled), ideally prior to using SOFTWARE ENGINEER Fentanyl patch 25 mcg q72h + 12 mcg q72h IV Tylenol Gabapentin - 300 QAM 600 Qmid day, 600 HS Abdominal trigger point injections done 10/09 Nausea Regimen: 1. IV Zofran Q4H PRN 2. PRN Ativan for nausea Nutrition: TPN, dietitian consulted, no vitamin supplements in TPN (patient does not tolerate) -TPN ordered for home, with famotidine and thiamine Trend CBC, CMP, magnesium, phosphorus Seizure-like activity Patient with history of nonepileptic seizures which in the past have been triggered by abdominal pain. Plan for EMU admission in October at [facility]. Will hold off on AEDs at this time Had one episode of a nonepileptic seizure overnight Pain control plan noted below Seizure precautions Telemetry monitoring Anemia -Hgb 10.8 (11.4 yesterday) -Has required iron infusions in the past -Ferritin level 125.9 today Right Ankle Sprain Occurred in July; right foot is in an orthopedic boot PT/OT ordered boot precludes SCDs Adrenal Insufficiency Continue home steroids -systolic BP 100. HR fluctuating but dropping down to 70s. -With persistent fatigue - deconditioning being the primary cause, will stress dose steroid for 2 doses 50mgs IV q12 and assess response. FEN: TPN Code status: full code DVT ppx: Lovenox PT/OT: ordered Case Management: consulted d/t complex needs Dispo: med/telemetry (2) Abdominal pain: (3) Nausea: (4) Right ankle sprain: (5) Adrenal insufficiency: (6) Chronic malnutrition: (7) Gastrostomy tube in place: (8) DVT prophylaxis: Admission and Anticipated Discharge Date Admission Date: October 08, 2022 Supervising Physician Co-Signing Physician Notes Resident Physician Supervision Note: I independently interviewed and examined the patient and verified the solorzano history and physical, reviewed labs and image studies and agree with resident findings and care plan. Bayron Quezada is a 32 year-old female with non-epileptic seizures, adrenal insufficiency, and an extensive GI history including gastroparesis, ostomy placement, intractable abdominal pain, and multiple GI surgeries presented with worsening abdominal pain triggering multiple non-epileptic seizures. 10/19: Patient was seen and examined at bedside. Patient has had increased nausea and is tearful. Has had several seizure episodes today requiring breakthrough IV Dilaudid. Patient's mom inquires about possibly stress dosing steroids and checking ferritin as she has required iron transfusions in the past. Review of Systems Review of Systems: As per above Physical Exam Constitutional: + ill appearing and + in distress Eyes: Anicteric sclera Respiratory: Normal respiratory effort Cardiovascular: Rate/Rhythm: regular rhythm and + tachycardic Extremities: no edema Gastrointestinal (Abdomen): Ostomy in place Skin: no rashes, warm and dry Psychiatric: Orientation: alert and oriented x 3 Affect: + tearful affect Results & Data Results & Data Vital Signs (Past 12 Hours) Vital Signs Temp Pulse Pulse Resp BP BP Pulse Ox 10/19/22 04:00 36.8 C 78 18 98/65 L 96 10/18/22 22:01 125 H 10/18/22 23:00 37.0 C 102 H 18 116/75 98 O2 Del Method 10/19/22 04:00 Room Air 10/18/22 22:01 10/18/22 23:00 Room Air Resident Activity Tracking Resident Involvement: Resident Care Provided Care Provided: Adult Hospital Medicine
[2022-10-19] MEDS ORDERED: HYDROmorphone INJ 0.5 MG/0.5 ML SYR IV STA ×2 (09:15→14:17)
[2022-10-19] MEDS: LORazepam 2 MG/1 ML VIAL IV PRN ×3 (09:27→22:45)
[2022-10-19] MEDS: GABAPENTIN 250 MG/5 ML 470 ML BTL PO SCH ×3 (09:28→20:09)
[2022-10-19] MEDS: FAMOTIDINE 20 MG TAB PO SCH ×2 (09:35→21:44)
[2022-10-19] MEDS: DULoxetine HCL 60 MG CAP PO SCH (09:35)
[2022-10-19] MEDS: HYDROCORTISONE 10 MG TAB PO SCH ×2 (09:36→13:56)
[2022-10-19] MEDS: FLUDROCORTISONE ACETATE 0.1 MG TAB PO SCH ×2 (09:36→21:45)
[2022-10-19] MEDS: METHOCARBAMOL 750 MG TABLET PO SCH ×3 (09:37→21:44)
[2022-10-19] MEDS: PANTOprazole 40 MG TAB PO SCH (09:38)
[2022-10-19] MEDS: PYRIDOXINE HCL 50 MG TAB PO SCH (09:38)
[2022-10-19] MEDS: DICYCLOMINE HCL 20 MG TAB PO PRN ×2 (09:39→21:44)
[2022-10-19] MEDS: HYDROmorphone PCA 30 MG/30 ML IV PRN (13:54)
[2022-10-19] MEDS ORDERED: HYDROmorphone INJ 0.5 MG/0.5 ML SYR ONE (14:20)
[2022-10-19 16:17] LABS: Ferritin 125.9 ng/ml (8-388)
[2022-10-19] MEDS ORDERED: CLINOLIPID 20% IV FAT EMULSION 250 ML IV SCH (21:00)
[2022-10-19] MEDS ORDERED: [UNRECOGNIZED DRUG - OTHER] IV SCH (21:00)
[2022-10-19] MEDS ORDERED: CENTRAL TPN IV SCH (21:00)
[2022-10-19] MEDS: HYDROmorphone INJ 1 MG/ML SYRINGE IV SCH (21:02)
[2022-10-19] MEDS: ENOXAPARIN INJ 40 MG/0.4 ML SYR SQ SCH (21:26)
[2022-10-19] MEDS: HYDROCORTISONE SOD 50 MG in SYRINGE 0 ML IV SCH (21:26)
[2022-10-19] MEDS: FEXOFENADINE HCL 180 MG TAB PO SCH (21:45)
[2022-10-19] MEDS ORDERED: HYDROmorphone INJ 1 MG/ML SYRINGE IV STA (22:37)
[2022-10-20] MEDS: CHECK fentaNYL PATCH PLACEMENT SCH ×4 (00:10→22:34)
[2022-10-20] MEDS: HYDROMORPHONE HCL 1 MG/ML GT SCH ×7 (02:20→22:24)
[2022-10-20] MEDS ORDERED: STOP CLINOLIPID SCH (03:00)
[2022-10-20] MEDS: PATIENT'S OWN CONTROLLED MED 1 PO SCH ×6 (03:09→22:33)
[2022-10-20] MEDS: ONDANSETRON INJ 2 MG/ML 2 ML VIAL IV PRN ×2 (06:19→20:52)
[2022-10-20 07:29] LABS: Basophils # (auto) 0.03 K/uL (0-0.2); Basophils % (auto) 0.3 %; Eosinophils # (auto) 0.02 K/uL (0-0.50); Eosinophils % (auto) 0.2 %; Hematocrit (blood only) 35.5 % (37.0-47.0); Hemoglobin 11.5 g/dl (12.0-16.0); Immature Granulocytes # (auto) 0.02 K/uL (0.01-0.20); Immature Granulocytes % (auto) 0.2 %; Lymphocytes # (auto) 1.29 K/uL (1.2-3.4); Lymphocytes % (auto) 13.6 %; Mean Corpuscular Hgb Conc 32.4 g/dL (32.0-36.0); Mean Corpuscular Volume 86.4 fL (80.0-100.0); Mean Platelet Volume 11.9 fL (9.4-12.4); Monocytes # (auto) 0.74 K/uL (0.11-0.59); Monocytes % (auto) 7.8 %; Neutrophils % (auto) 77.9 %; Platelet Count 263 K/uL (130-400); RDW Coefficient of Variation 18.2 % (11.5-14.5); RDW Standard Deviation 57.7 fL (36.4-46.3); Red Blood Count 4.11 M/uL (4.20-5.40)
[2022-10-20 07:44] LABS: BUN Creatinine Ratio 30.2 (10-20); Calcium 8.6 mg/dl (8.6-10.3); Creatinine Clr Calc Pharmacy 145.3 ml/min; Est GFR (African American) 147.7 ml/min; Est GFR (Non-African American) 127.4 ml/min; Magnesium 1.9 mg/dl (1.7-2.4); Phosphorus 3.4 mg/dl (2.5-4.9); Potassium 3.7 mmol/L (3.5-5.1)
--- NOTE | 2022-10-20 07:56 | Hospitalist Progress Note ---
Date of Service October 20, 2022 Assessment & Plan (1) Seizure-like activity: Plan: Pilar is a 32 year-old female with non-epileptic seizures, adrenal insufficiency, and an extensive GI history including gastroparesis, ostomy placement, intractable abdominal pain, and multiple GI surgeries presented with worsening abdominal pain triggering multiple non-epileptic seizures. Acute exacerbation of chronic Abdominal Pain: Extensive GI History, G-Tube Dependence, Chronic Malnutrition Patient with extensive GI history and chronic abdominal pain. Etiology unclear for most recent pain flare. Labs unremarkable. Imaging unchanged. Continue home methocarbamol, dicyclomine, Cymbalta, and gabapentin. Will monitor CATHETER BUILDER usage and transition to similar MME dosing of PO as tolerated. Will encourage trial of PO prior to using CATHETER BUILDER unless pain unmanageable. Liquid Dilaudid not on formulary - using home dose. Currently receiving ~500 MME daily. Fentanyl patch- was weaned off of entirely as outpatient for consideration of bowel transplant but resumed in recent weeks. Pain Regimen: CATHETER BUILDER 0.5 mg q30 minutes (~15mg IV dilaudid daily = 300MME) PO liquid Dilaudid (4mq q4h scheduled), ideally prior to using CATHETER BUILDER (96 MME) IV dilaudid 1mg HS Fentanyl patch increased to 50mcg daily (120MME) IV Tylenol Gabapentin - 300 QAM 600 Qmid day, 600 HS Abdominal trigger point injections done 10/09, consider repeat Given she does have some pain with peristalsis, possible constipation, will add daily miralax may use 1mg IV dilaudid for 'breakthrough pain seizures' May have some contribution from dehydration as well, ordered 2L lactate ringers Nausea Regimen: 1. IV Zofran Q4H PRN 2. PRN Ativan for nausea Nutrition: TPN, dietitian consulted, no vitamin supplements in TPN (patient does not tolerate) -TPN ordered for home, with famotidine and thiamine Trend CBC, CMP, magnesium, phosphorus Seizure-like activity Patient with history of nonepileptic seizures which in the past have been triggered by abdominal pain. Plan for EMU admission in October at [facility]. Will hold off on AEDs at this time Had one episode of a nonepileptic seizure overnight Pain control plan noted below Seizure precautions Telemetry monitoring Anemia -Hgb 10.8 (11.4 yesterday) -Has required iron infusions in the past -Ferritin level 125.9 today Right Ankle Sprain Occurred in July; right foot is in an orthopedic boot PT/OT ordered boot precludes SCDs Adrenal Insufficiency Continue home steroids FEN: TPN Code status: full code DVT ppx: Lovenox PT/OT: ordered Case Management: consulted d/t complex needs Dispo: med/telemetry (2) Abdominal pain: (3) Nausea: (4) Right ankle sprain: (5) Adrenal insufficiency: (6) Chronic malnutrition: (7) Gastrostomy tube in place: (8) DVT prophylaxis: Admission and Anticipated Discharge Date Admission Date: October 08, 2022 Supervising Physician Co-Signing Physician Notes I personally examined the patient and verified all solorzano points of history and exam, discussed case, and agree with decision making with Dr Velazquez. Pain worse. Central a bit periumbilical but distal. Notes that it is constantly there is an ache, and then fairly rapidly over seconds most of the time to maybe a minute or 2 at the most, it will rapidly intensify to a sharp stabbing that will last for hours. During this time she will often note at the end of the episode of pain some rather significant throughput into her ostomy bag. She also notes that sometimes eating a popsicle or drinking some water is a trigger for the pain. She also notes her nausea has been worse. Vitals noted, in general she is awake and alert pleasant no distress. Very fatigued. Abdomen is soft mildly distended tender with left upper abdominal and mid ab dominal trigger points being very tender and still present, but also diffuse vague but fairly intense tenderness around her PEG and periumbilicalno guarding rebound or rigidity. Uncontrolled pain with subsequent pain induced pseudoseizuressomatic pain: Seems to either be adhesional, narcotics related bowel slowing, or other motilityher mom notes that she appears consistent with how she has in the past when she is a bit dehydrated, which certainly would be an easy situation to remedywe will give 2 L of LR to see if we can change the situation, if not will initiate MiraLAX 17 g daily to try to help with narcotics related bowel slowing; continue to follow closely; managing the chronic part of the painincrease fentanyl patch to 50, continue Dilaudid CATHETER BUILDER for breakthrough for now, but try 4 mg Dilaudid p.o. if pain is not quite as severe. Somatic/neuropathic overlap:trigger points present, injected in the seems to help with the nauseaand possibly some with pain, will reinject this weekand given that her symptoms could have multifaceted causes, we discussed trying to start to parse apart what feels different based on response to trigger point injections to be able to help titrate repeat injections as an outpatient. Neuropathic: Escalated gabapentin previously, will likely continue to escalate. SUGAR REFINERY SUPERVISOR facilitation: Present, but I feel that the polypharmacy risk of escalating her Cymbalta is probably higher than the pain benefit at this time. Psychiatric: Continue with pain psychology, continue with distraction techniques, dog should be allowed to visit, ongoing reassurance and education. Subjective Patient seen at bedside, calm cooperative. States she feels better compared to admission, pain is more under control, however she had 3 'pain seizures' as of today and 8 yesterday. Patient is keeping in touch with friends and family, dog is visiting daily for mental support. Patient understands we are trying to avoid additional surgery at this time, will try to optimize her pain regime. Physical Exam Constitutional: cooperative Eyes: PERRL, conjunctivae normal, anicteric sclerae ENMT: external ear and nose normal, oropharynx normal Neck: trachea midline, no thyromegaly Respiratory: normal respiratory effort, lungs clear to auscultation Cardiovascular: RRR, no murmur, no edema Gastrointestinal (Abdomen): pain on palpation to lower abdomen. colostomy bag in tact. G tube in tact Skin: no rashes, warm and dry Results & Data Results & Data Vital Signs (Past 12 Hours) Vital Signs Temp Pulse Resp BP Pulse Ox O2 Del Method 10/20/22 07:55 36.6 C 75 18 98/66 L 98 Room Air 10/19/22 23:00 36.8 C 18 107/75 96 Room Air 10/19/22 19:58 36.9 C 85 18 108/72 96 Room Air Resident Activity Tracking Resident Involvement: Resident Care Provided Care Provided: Adult Hospital Medicine
[2022-10-20] MEDS: LORazepam 2 MG/1 ML VIAL IV PRN ×2 (08:19→14:28)
[2022-10-20] MEDS: GABAPENTIN 250 MG/5 ML 470 ML BTL PO SCH ×3 (08:20→20:52)
[2022-10-20] MEDS: HYDROCORTISONE SOD 50 MG in SYRINGE 0 ML IV SCH (08:20)
[2022-10-20] MEDS: DULoxetine HCL 60 MG CAP PO SCH (08:31)
[2022-10-20] MEDS: FAMOTIDINE 20 MG TAB PO SCH ×2 (08:31→21:06)
[2022-10-20] MEDS: PYRIDOXINE HCL 50 MG TAB PO SCH (08:31)
[2022-10-20] MEDS: HYDROCORTISONE 10 MG TAB PO SCH ×2 (08:31→14:35)
[2022-10-20] MEDS: PANTOprazole 40 MG TAB PO SCH (08:31)
[2022-10-20] MEDS: FLUDROCORTISONE ACETATE 0.1 MG TAB PO SCH ×2 (08:32→21:05)
[2022-10-20] MEDS: METHOCARBAMOL 750 MG TABLET PO SCH ×3 (08:32→21:07)
[2022-10-20] MEDS: DICYCLOMINE HCL 20 MG TAB PO PRN ×2 (10:24→21:06)
[2022-10-20] MEDS ORDERED: HYDROmorphone INJ 1 MG/ML SYRINGE IV STA ×2 (11:31→15:05)
[2022-10-20] MEDS: fentaNYL 50 MCG/HR TDSY TD SCH (12:17)
[2022-10-20] MEDS: SODIUM CHLORIDE 0.9% 1000ML 1,000 ML IV SCH (13:04)
[2022-10-20] MEDS: LACTATED RINGER'S 1,000 ML IV SCH ×2 (14:48→16:24)
--- NOTE | 2022-10-20 15:57 | Billing Data ---
Date of Service October 20, 2022 Coding Level of Care Code 33593 SUB INP/OBS CARE MIN
[2022-10-20] MEDS: HYDROmorphone INJ 1 MG/ML SYRINGE IV SCH (20:00)
[2022-10-20] MEDS ORDERED: CENTRAL TPN IV SCH (21:00)
[2022-10-20] MEDS ORDERED: [UNRECOGNIZED DRUG - OTHER] IV SCH (21:00)
[2022-10-20] MEDS: ENOXAPARIN INJ 40 MG/0.4 ML SYR SQ SCH (21:05)
[2022-10-20] MEDS: FEXOFENADINE HCL 180 MG TAB PO SCH (21:07)
[2022-10-21] MEDS: LORazepam 2 MG/1 ML VIAL IV PRN ×3 (00:10→19:22)
[2022-10-21] MEDS: HYDROmorphone INJ 1 MG/ML SYRINGE IV PRN ×6 (00:10→23:20)
[2022-10-21] MEDS: HYDROMORPHONE HCL 1 MG/ML GT SCH ×7 (02:00→22:16)
[2022-10-21] MEDS: PATIENT'S OWN CONTROLLED MED 1 PO SCH ×7 (03:18→22:16)
--- NOTE | 2022-10-21 07:27 | Hospitalist Progress Note ---
Date of Service October 21, 2022 Assessment & Plan (1) Seizure-like activity: Plan: Pilar is a 32 year-old female with non-epileptic seizures, adrenal insufficiency, and an extensive GI history including gastroparesis, ostomy placement, intractable abdominal pain, and multiple GI surgeries presented with worsening abdominal pain triggering multiple non-epileptic seizures. Acute exacerbation of chronic Abdominal Pain: Extensive GI History, G-Tube Dependence, Chronic Malnutrition Patient with extensive GI history and chronic abdominal pain. Etiology unclear for most recent pain flare. Labs unremarkable. Imaging unchanged. Continue home methocarbamol, dicyclomine, Cymbalta, and gabapentin. Will monitor AGRICULTURAL SYSTEMS SPECIALIST usage and transition to similar MME dosing of PO as tolerated. Will encourage trial of PO prior to using AGRICULTURAL SYSTEMS SPECIALIST unless pain unmanageable. Liquid Dilaudid not on formulary - using home dose. Currently receiving ~500 MME daily. Fentanyl patch- was weaned off of entirely as outpatient for consideration of bowel transplant but resumed in recent weeks. Pain Regimen: AGRICULTURAL SYSTEMS SPECIALIST 0.5 mg q30 minutes, patient advised to try oral and IV options first PO liquid Dilaudid increased to (4mg q2h scheduled), ideally prior to using AGRICULTURAL SYSTEMS SPECIALIST (192 MME) IV dilaudid 1mg HS Fentanyl patch increased to 50mcg daily (120MME) IV Tylenol Gabapentin - 300 QAM 600 Qmid day, 600 HS Abdominal trigger point injections done 10/09, consider repeat Given she does have some pain with peristalsis, possible constipation, will add daily miralax may use 1mg IV dilaudid q4h for 'breakthrough pain seizures' May have some contribution from dehydration as well, ordered 2L lactate ringers 10/20, home jermaine 1L qeveryotherday Nausea Regimen: 1. IV Zofran Q4H PRN 2. PRN Ativan for nausea Nutrition: TPN, dietitian consulted, no vitamin supplements in TPN (patient does not tolerate) -TPN ordered for home, with famotidine and thiamine Trend CBC, CMP, magnesium, phosphorus Seizure-like activity Patient with history of nonepileptic seizures which in the past have been triggered by abdominal pain. Plan for EMU admission in October at [facility]. Will hold off on AEDs at this time Had one episode of a nonepileptic seizure overnight Pain control plan noted above Seizure precautions Telemetry monitoring Anemia -Hgb 10.8 (11.4 prior) -Has required iron infusions in the past -Ferritin level 125.9 -B12 443 normal Right Ankle Sprain Occurred in July; right foot is in an orthopedic boot PT/OT ordered boot precludes SCDs Adrenal Insufficiency Continue home steroids FEN: TPN Code status: full code DVT ppx: Lovenox PT/OT: ordered Case Management: consulted d/t complex needs Dispo: med/telemetry (2) Abdominal pain: (3) Nausea: (4) Right ankle sprain: (5) Adrenal insufficiency: (6) Chronic malnutrition: (7) Gastrostomy tube in place: (8) DVT prophylaxis: Admission and Anticipated Discharge Date Admission Date: October 08, 2022 Supervising Physician Co-Signing Physician Notes I personally examined the patient and verified all solorzano points of history and exam, discussed case, and agree with decision making with Dr Velazquez. Pain doing better. Stated had a pain easier through the night, has needed AGRICULTURAL SYSTEMS SPECIALIST less today. More optimistic about being able to go home. Vitals noted, in general she is awake and alert pleasant no distress. HEENT normocephalic atraumatic mucous membranes moist. Breathing unlabored no accessory muscle use good effort. Skin shows no rashes no pallor or icterus. Neuro without focal deficits. Uncontrolled pain with subsequent pain induced pseudoseizuressomatic pain: Seems to either be adhesional, narcotics related bowel slowing, or other motilityrehydration seems to have affected a major changeprobably will need to increase her home hydration; managing the chronic part of the painincreased fentanyl patch to 50 6/5, continue Dilaudid AGRICULTURAL SYSTEMS SPECIALIST for breakthrough for now, but try 4 mg Dilaudid p.o. if pain is not quite as severe. Somatic/neuropathic overlap:trigger points present, injected in the seems to help with the nauseaand possibly some with pain, planning on reinjecting this week, and less her symptoms continue to improve nicely in which case we will hold off so as to not potentially affect any confounding factorsand given that her symptoms could have multifaceted causes, we discussed trying to start to parse apart what feels different based on response to trigger point injections to be able to help titrate repeat injections as an outpatient. Neuropathic: Escalated gabapentin previously, will likely continue to escalate. LAST TRIMMER facilitation: Present, but I feel that the polypharmacy risk of escalating her Cymbalta is probably higher than the pain benefit at this time. Psychiatric: Continue with pain psychology, continue with distraction techniques, dog should be allowed to visit, ongoing reassurance and education. Subjective Patient seen at bedside, calm comfortable cooperative. States since the IV fluid boluses from yesterday and PRN dilaudid, she felt her pain was more under control. Has a wedding shower she wants to attending this upcoming weekend, has tried avoided using the AGRICULTURAL SYSTEMS SPECIALIST states she largely relied on oral and IV pain medication overnight. Patient's mom has questions regarding PICC line, understands that we are not going to get a PICC while her peripheral IV is still working to preserve her existing veins, if something happens overnight hold TPN give pain meds through port. Physical Exam Constitutional: cooperative Eyes: PERRL, conjunctivae normal, anicteric sclerae ENMT: external ear and nose normal, oropharynx normal Neck: trachea midline, no thyromegaly Respiratory: normal respiratory effort, lungs clear to auscultation Cardiovascular: RRR, no murmur, no edema Gastrointestinal (Abdomen): colostomy bag in tact. G tube in tact Skin: no rashes, warm and dry Results & Data Results & Data Vital Signs (Past 12 Hours) Vital Signs Temp Pulse Pulse Resp BP Pulse Ox O2 Del Method 10/21/22 04:00 36.7 C 67 18 100/68 96 Room Air 10/20/22 22:01 79 10/20/22 23:00 36.9 C 87 18 125/87 99 Room Air 10/20/22 21:09 36.6 C 119 H 18 101/69 98 Room Air Resident Activity Tracking Resident Involvement: Resident Care Provided Care Provided: Adult Hospital Medicine
[2022-10-21] MEDS: ONDANSETRON INJ 2 MG/ML 2 ML VIAL IV PRN ×3 (08:20→23:21)
[2022-10-21] MEDS: CHECK fentaNYL PATCH PLACEMENT SCH ×2 (08:25→16:23)
[2022-10-21] MEDS: FAMOTIDINE 20 MG TAB PO SCH ×2 (09:22→20:51)
[2022-10-21] MEDS: FLUDROCORTISONE ACETATE 0.1 MG TAB PO SCH ×2 (09:22→20:50)
[2022-10-21] MEDS: PYRIDOXINE HCL 50 MG TAB PO SCH (09:22)
[2022-10-21] MEDS: HYDROCORTISONE 10 MG TAB PO SCH ×2 (09:22→14:03)
[2022-10-21] MEDS: DULoxetine HCL 60 MG CAP PO SCH (09:22)
[2022-10-21] MEDS: METHOCARBAMOL 750 MG TABLET PO SCH ×3 (09:22→20:51)
[2022-10-21] MEDS: PANTOprazole 40 MG TAB PO SCH (09:22)
[2022-10-21] MEDS: POLYETHYLENE (MIRALAX) 17 GM PACK PO SCH (09:23)
[2022-10-21] MEDS: GABAPENTIN 250 MG/5 ML 470 ML BTL PO SCH ×3 (09:29→19:23)
[2022-10-21] MEDS: HYDROmorphone PCA 30 MG/30 ML IV PRN (10:34)
[2022-10-21] MEDS: SODIUM CHLORIDE 0.9% 1000ML 1,000 ML IV SCH (10:34)
[2022-10-21 11:02] LABS: Basophils # (auto) 0.05 K/uL (0-0.2); Basophils % (auto) 1.3 %; Eosinophils # (auto) 0.06 K/uL (0-0.50); Eosinophils % (auto) 1.5 %; Hematocrit (blood only) 33.4 % (37.0-47.0); Hemoglobin 10.8 g/dl (12.0-16.0); Immature Granulocytes # (auto) 0.01 K/uL (0.01-0.20); Immature Granulocytes % (auto) 0.3 %; Lymphocytes # (auto) 1.52 K/uL (1.2-3.4); Lymphocytes % (auto) 38.2 %; Mean Corpuscular Hemoglobin 28.3 pg (25.0-34.0); Mean Corpuscular Hgb Conc 32.3 g/dL (32.0-36.0); Mean Corpuscular Volume 87.4 fL (80.0-100.0); Mean Platelet Volume 11.6 fL (9.4-12.4); Monocytes # (auto) 0.54 K/uL (0.11-0.59); Monocytes % (auto) 13.6 %; Neutrophils % (auto) 45.1 %; Platelet Count 237 K/uL (130-400); RDW Coefficient of Variation 18.6 % (11.5-14.5); RDW Standard Deviation 59.4 fL (36.4-46.3); Red Blood Count 3.82 M/uL (4.20-5.40); White Blood Count 3.98 K/ul (4.8-10.8)
[2022-10-21 11:35] LABS: BUN Creatinine Ratio 26.3 (10-20); Calcium 8.5 mg/dl (8.6-10.3); Creatinine Clr Calc Pharmacy 135.1 ml/min; Est GFR (African American) 144.2 ml/min; Est GFR (Non-African American) 124.4 ml/min; Magnesium 1.8 mg/dl (1.7-2.4); Phosphorus 4.4 mg/dl (2.5-4.9); Potassium 3.6 mmol/L (3.5-5.1)
[2022-10-21] MEDS: DICYCLOMINE HCL 20 MG TAB PO PRN ×2 (14:02→20:49)
--- NOTE | 2022-10-21 19:39 | Billing Data ---
Date of Service October 21, 2022 Coding Level of Care Code 15814 SUB INP/OBS CARE MIN
[2022-10-21] MEDS: HYDROmorphone INJ 1 MG/ML SYRINGE IV SCH (20:47)
[2022-10-21] MEDS: FEXOFENADINE HCL 180 MG TAB PO SCH (20:49)
[2022-10-21] MEDS: ENOXAPARIN INJ 40 MG/0.4 ML SYR SQ SCH (20:49)
[2022-10-21] MEDS ORDERED: [UNRECOGNIZED DRUG - OTHER] IV SCH (21:00)
[2022-10-21] MEDS ORDERED: [UNRECOGNIZED DRUG - OTHER] IV SCH (21:00)
[2022-10-21] MEDS ORDERED: CLINOLIPID 20% IV FAT EMULSION 250 ML IV SCH (21:00)
[2022-10-21] MEDS ORDERED: CENTRAL TPN IV SCH ×2 (21:00)
[2022-10-22] MEDS: LORazepam 2 MG/1 ML VIAL IV PRN ×4 (01:36→23:04)
[2022-10-22] MEDS: HYDROMORPHONE HCL 1 MG/ML GT SCH ×13 (01:59→23:58)
[2022-10-22] MEDS: PATIENT'S OWN CONTROLLED MED 1 PO SCH ×13 (02:00→23:58)
[2022-10-22] MEDS: ONDANSETRON INJ 2 MG/ML 2 ML VIAL IV PRN ×2 (04:00→12:49)
[2022-10-22] MEDS: HYDROmorphone INJ 1 MG/ML SYRINGE IV PRN ×5 (04:00→21:33)
[2022-10-22] MEDS: CHECK fentaNYL PATCH PLACEMENT SCH ×3 (07:34→15:47)
[2022-10-22] MEDS: FAMOTIDINE 20 MG TAB PO SCH ×2 (08:45→21:11)
[2022-10-22] MEDS: FLUDROCORTISONE ACETATE 0.1 MG TAB PO SCH ×2 (08:45→21:10)
[2022-10-22] MEDS: DULoxetine HCL 60 MG CAP PO SCH (08:45)
[2022-10-22] MEDS: PYRIDOXINE HCL 50 MG TAB PO SCH (08:46)
[2022-10-22] MEDS: HYDROCORTISONE 10 MG TAB PO SCH ×2 (08:46→14:22)
[2022-10-22] MEDS: METHOCARBAMOL 750 MG TABLET PO SCH ×3 (08:46→21:12)
[2022-10-22] MEDS: PANTOprazole 40 MG TAB PO SCH (08:46)
[2022-10-22] MEDS: DICYCLOMINE HCL 20 MG TAB PO PRN ×3 (08:47→21:12)
[2022-10-22] MEDS: POLYETHYLENE (MIRALAX) 17 GM PACK PO SCH (08:49)
--- NOTE | 2022-10-22 09:28 | Hospitalist Progress Note ---
Date of Service October 22, 2022 Assessment & Plan (1) Seizure-like activity: Plan: Pilar is a 32 year-old female with non-epileptic seizures, adrenal insufficiency, and an extensive GI history including gastroparesis, ostomy placement, intractable abdominal pain, and multiple GI surgeries presented with worsening abdominal pain triggering multiple non-epileptic seizures. Acute exacerbation of chronic Abdominal Pain: Extensive GI History, G-Tube Dependence, Chronic Malnutrition Patient with extensive GI history and chronic abdominal pain. Etiology unclear for most recent pain flare. Labs unremarkable. Imaging unchanged. Continue home methocarbamol, dicyclomine, Cymbalta, and gabapentin. Will monitor PARLOR CHAPERONE usage and transition to similar MME dosing of PO as tolerated. Will encourage trial of PO prior to using PARLOR CHAPERONE unless pain unmanageable. Liquid Dilaudid not on formulary - using home dose. Currently receiving ~500 MME daily. Fentanyl patch- was weaned off of entirely as outpatient for consideration of bowel transplant but resumed in recent weeks. Pain Regimen: PARLOR CHAPERONE 0.5 mg q30 minutes, patient advised to try oral and IV options first PO liquid Dilaudid increased to (4mg q2h scheduled), ideally prior to using PARLOR CHAPERONE (192 MME) IV dilaudid 1mg HS Fentanyl patch increased to 50mcg daily (120MME) IV Tylenol Gabapentin - 300 QAM 600 Qmid day, 600 HS Abdominal trigger point injections done 10/09, consider repeat Given she does have some pain with peristalsis, possible constipation, will add daily miralax may use 1mg IV dilaudid q4h for 'breakthrough pain seizures' Patient has benefited from LR boluses, will continue home regime 1L LR qeveryotherday Nausea Regimen: 1. IV Zofran Q4H PRN 2. PRN Ativan for nausea Nutrition: TPN, dietitian consulted, no vitamin supplements in TPN (patient does not tolerate) -TPN ordered for home, with famotidine and thiamine -need weekly check of LFT, lipid panel Trend CBC, CMP, magnesium, phosphorus Seizure-like activity Patient with history of nonepileptic seizures which in the past have been triggered by abdominal pain. Plan for EMU admission in October at [facility]. Will hold off on AEDs at this time Had one episode of a nonepileptic seizure overnight Pain control plan noted above Seizure precautions Telemetry monitoring Anemia -Hgb 10.8 (11.4 prior) -Has required iron infusions in the past -Ferritin level 125.9 -B12 443 normal Right Ankle Sprain Occurred in July; right foot is in an orthopedic boot PT/OT ordered boot precludes SCDs Adrenal Insufficiency Continue home steroids FEN: TPN Code status: full code DVT ppx: Lovenox PT/OT: ordered Case Management: consulted d/t complex needs Dispo: med/telemetry (2) Abdominal pain: (3) Nausea: (4) Right ankle sprain: (5) Adrenal insufficiency: (6) Chronic malnutrition: (7) Gastrostomy tube in place: (8) DVT prophylaxis: Admission and Anticipated Discharge Date Admission Date: October 08, 2022 Supervising Physician Co-Signing Physician Notes I personally examined the patient and verified all solorzano points of history and exam, discussed case, and agree with decision making with Dr Velazquez. Pain continues to do bettercontinuing to have less and less need for IV narcotics, and getting better and better control with p.o. Vitals noted, in general she is awake and alert pleasant no distress. HEENT normocephalic atraumatic mucous membranes moist. Breathing unlabored no accessory muscle use good effort. Skin shows no rashes no pallor or icterus. Neuro without focal deficits. Uncontrolled pain with subsequent pain induced pseudoseizuressomatic pain: Seems to either be adhesional, narcotics related bowel slowing, or other motilityrehydration seems to have affected a major changeprobably will need to increase her home hydration as outpatient; managing the chronic part of the painincreased fentanyl patch to 50 on 10/20, continue Dilaudid PARLOR CHAPERONE for breakthrough for now, but try 4 mg Dilaudid p.o. if pain is not quite as severe. Somatic/neuropathic overlap:trigger points present, injected in the seems to help with the nauseaand possibly some with pain, was initially planning on reinjecting this week, and less her symptoms continue to improve nicely in which case we will hold off so as to not potentially affect any confounding factorsand given that her symptoms could have multifaceted causes, we discussed trying to start to parse apart what feels different based on response to trigger point injections to be able to help titrate repeat injections as an outpatient. Neuropathic: Escalated gabapentin previously, will likely continue to escalate. MERCHANDISE COMPLAINT ADJUSTER facilitation: Present, but I feel that the polypharmacy risk of escalating her Cymbalta is probably higher than the pain benefit at this time. Psychiatric: Continue with pain psychology, continue with distraction techniques, dog should be allowed to visit, ongoing reassurance and education. Subjective Patient seen at bedside, calm comfortable cooperative. States last night went well. Patient understands her B12 levels are normal, declines trigger point injection today, understands we will give her a bolus of fluid as per her home regiment. She is tolerating oral dilaudid. Looks forward to wedding shower this weekend. Physical Exam Constitutional: cooperative Eyes: PERRL, conjunctivae normal, anicteric sclerae ENMT: external ear and nose normal, oropharynx normal Neck: trachea midline, no thyromegaly Respiratory: normal respiratory effort, lungs clear to auscultation Cardiovascular: RRR, no murmur, no edema Gastrointestinal (Abdomen): colostomy bag in tact. G tube in tact Skin: no rashes, warm and dry Results & Data Results & Data Vital Signs (Past 12 Hours) Vital Signs Temp Pulse Pulse Resp BP Pulse Ox O2 Del Method 10/22/22 08:30 36.7 C 95 H 16 101/69 97 Room Air 10/21/22 22:01 101 H 10/22/22 03:21 36.7 C 81 18 114/80 97 Room Air 10/21/22 23:46 36.6 C 88 18 128/87 100 Room Air Resident Activity Tracking Resident Involvement: Resident Care Provided Care Provided: Adult Hospital Medicine
[2022-10-22 09:33] LABS: Basophils # (auto) 0.04 K/uL (0-0.2); Basophils % (auto) 0.8 %; Eosinophils # (auto) 0.14 K/uL (0-0.50); Eosinophils % (auto) 2.7 %; Hematocrit (blood only) 33.5 % (37.0-47.0); Immature Granulocytes # (auto) 0.01 K/uL (0.01-0.20); Immature Granulocytes % (auto) 0.2 %; Lymphocytes # (auto) 1.67 K/uL (1.2-3.4); Lymphocytes % (auto) 31.7 %; Mean Corpuscular Hgb Conc 32.8 g/dL (32.0-36.0); Mean Corpuscular Volume 85.2 fL (80.0-100.0); Mean Platelet Volume 11.5 fL (9.4-12.4); Monocytes # (auto) 0.68 K/uL (0.11-0.59); Monocytes % (auto) 12.9 %; Neutrophils # (auto) 2.72 K/uL (1.40-6.50); Neutrophils % (auto) 51.7 %; Platelet Count 232 K/uL (130-400); RDW Coefficient of Variation 18.2 % (11.5-14.5); RDW Standard Deviation 56.9 fL (36.4-46.3); Red Blood Count 3.93 M/uL (4.20-5.40); White Blood Count 5.26 K/ul (4.8-10.8)
[2022-10-22] MEDS: GABAPENTIN 250 MG/5 ML 470 ML BTL PO SCH ×3 (10:09→20:31)
[2022-10-22 11:06] LABS: Calcium 8.6 mg/dl (8.6-10.3); Magnesium 1.9 mg/dl (1.7-2.4); Potassium 3.8 mmol/L (3.5-5.1)
[2022-10-22 11:14] LABS: BUN Creatinine Ratio 27.9 (10-20); Creatinine Clr Calc Pharmacy 126.2 ml/min; Est GFR (Non-African American) 121.7 ml/min; Phosphorus 4.5 mg/dl (2.5-4.9)
[2022-10-22] MEDS ORDERED: HYDROmorphone INJ 1 MG/ML SYRINGE IV STA (14:58)
[2022-10-22] MEDS: HEPARIN 100 UNIT/ML 5ML FLUSH FLUSH PRN (15:12)
[2022-10-22] MEDS ORDERED: LACTATED RINGER'S 1,000 ML IV ONE (16:22)
--- NOTE | 2022-10-22 17:14 | Billing Data ---
Date of Service October 22, 2022 Coding Level of Care Code 84071 SUB INP/OBS CARE MIN
[2022-10-22] MEDS ORDERED: DEXTROSE 50% 50 ML SYRINGE IV ONE (18:31)
[2022-10-22] MEDS: SODIUM CHLORIDE 0.9% 1000ML 1,000 ML IV SCH (18:56)
[2022-10-22] MEDS: HYDROmorphone INJ 1 MG/ML SYRINGE IV SCH (20:31)
[2022-10-22] MEDS ORDERED: CENTRAL TPN IV SCH (21:00)
[2022-10-22] MEDS ORDERED: [UNRECOGNIZED DRUG - OTHER] IV SCH (21:00)
[2022-10-22] MEDS: ENOXAPARIN INJ 40 MG/0.4 ML SYR SQ SCH (21:10)
[2022-10-22] MEDS: FEXOFENADINE HCL 180 MG TAB PO SCH (21:11)
[2022-10-23] MEDS: HYDROmorphone INJ 1 MG/ML SYRINGE IV PRN ×6 (01:26→20:51)
[2022-10-23] MEDS: CHECK fentaNYL PATCH PLACEMENT SCH ×6 (01:27→23:57)
[2022-10-23] MEDS: ONDANSETRON INJ 2 MG/ML 2 ML VIAL IV PRN ×2 (01:27→20:51)
[2022-10-23] MEDS: PATIENT'S OWN CONTROLLED MED 1 PO SCH ×12 (01:38→22:44)
[2022-10-23] MEDS: HYDROMORPHONE HCL 1 MG/ML GT SCH ×12 (01:38→22:39)
[2022-10-23] MEDS: LORazepam 2 MG/1 ML VIAL IV PRN ×4 (05:32→22:40)
--- NOTE | 2022-10-23 07:47 | Hospitalist Progress Note ---
Date of Service October 23, 2022 Assessment & Plan (1) Seizure-like activity: Plan: Pilar is a 32 year-old female with non-epileptic seizures, adrenal insufficiency, and an extensive GI history including gastroparesis, ostomy placement, intractable abdominal pain, and multiple GI surgeries presented with worsening abdominal pain triggering multiple non-epileptic seizures. Acute exacerbation of chronic Abdominal Pain: Extensive GI History, G-Tube Dependence, Chronic Malnutrition Patient with extensive GI history and chronic abdominal pain. Etiology unclear for most recent pain flare. Labs unremarkable. Imaging unchanged. Continue home methocarbamol, dicyclomine, Cymbalta, and gabapentin. Will monitor [employer] usage and transition to similar MME dosing of PO as tolerated. Will encourage trial of PO prior to using [employer] unless pain unmanageable. Liquid Dilaudid not on formulary - using home dose. Currently receiving ~500 MME daily. Fentanyl patch- was weaned off of entirely as outpatient for consideration of bowel transplant but resumed in recent weeks. Pain Regimen: [employer] 0.5 mg q30 minutes, patient advised to try oral and IV options first PO liquid Dilaudid increased to (4mg q2h scheduled), ideally prior to using [employer] (192 MME) IV dilaudid 1mg HS Fentanyl patch increased to 75mcg daily (180MME) IV Tylenol Gabapentin - 300 QAM 600 Qmid day, 600 HS Abdominal trigger point injections done 10/09, consider repeat Given she does have some pain with peristalsis, possible constipation, will add daily miralax may use 1mg IV dilaudid q4h for 'breakthrough pain seizures' Patient has benefited from LR boluses, will continue home regime 1L LR daily *as peripheral line has stopped working, will run [employer] with D5W+0.9%NSS 80mls/h overnight, hold TPN given only 1 IV site. Nausea Regimen: 1. IV Zofran Q4H PRN 2. PRN Ativan for nausea Nutrition: TPN, dietitian consulted, no vitamin supplements in TPN (patient does not tolerate) -TPN ordered for home, with famotidine and thiamine -need weekly check of LFT, lipid panel Trend CBC, CMP, magnesium, phosphorus Seizure-like activity Patient with history of nonepileptic seizures which in the past have been triggered by abdominal pain. Plan for EMU admission in October at [facility]. Will hold off on AEDs at this time Had one episode of a nonepileptic seizure overnight Pain control plan noted above Seizure precautions Telemetry monitoring Adrenal Insufficiency had received stress dose steroids earlier in hospital course, mom feels she had less pain then -home dose hydrocortisone 15mg am 10mg pm -at this time will try stress dosing hydrocortisone 25mg am 20mg pm, she has followup with endocrine this thursday Anemia -Hgb 10.8 (11.4 prior) -Has required iron infusions in the past -Ferritin level 125.9 -B12 443 normal Right Ankle Sprain Occurred in July; right foot is in an orthopedic boot PT/OT ordered boot precludes SCDs FEN: TPN Code status: full code DVT ppx: Lovenox PT/OT: ordered Case Management: consulted d/t complex needs Dispo: med/telemetry (2) Abdominal pain: (3) Nausea: (4) Right ankle sprain: (5) Adrenal insufficiency: (6) Chronic malnutrition: (7) Gastrostomy tube in place: (8) DVT prophylaxis: Admission and Anticipated Discharge Date Admission Date: October 08, 2022 Supervising Physician Co-Signing Physician Notes I personally examined the patient and verified all solorzano points of history and exam, discussed case, and agree with decision making with Dr Velazquez. Feels like she might be doing well enough to consider home in the near future. Most of her pain control is been fentanyl patch RPO. Vitals noted, in general she is awake and alert pleasant no distress. HEENT normocephalic atraumatic mucous membranes moist. Breathing unlabored no accessory muscle use good effort. Skin shows no rashes no pallor or icterus. Neuro without focal deficits. Uncontrolled pain with subsequent pain induced pseudoseizuressomatic pain: Seems to either be adhesional, narcotics related bowel slowing, or other motilityrehydration seems to have affected a major changeprobably will need to increase her home hydration as outpatient; additional fluid today, managing the chronic part of the painincreased fentanyl patch to 75, continue Dilaudid [employer] for breakthrough for now, but try 4 mg Dilaudid p.o. if pain is not quite as severe (and she is affecting this transition well). Somatic/neuropathic overlap:trigger points present, injected in the seems to help with the nauseaand possibly some with pain, was initially planning on reinjecting this week, and less her symptoms continue to improve nicely in which case we will hold off so as to not potentially affect any confounding factorsand given that her symptoms could have multifaceted causes, we discussed trying to start to parse apart what feels different based on response to trigger point injections to be able to help titrate repeat injections as an outpatient. Neuropathic: Escalated gabapentin previously, will likely continue to escalate. PLATE FORMER facilitation: Present, but I feel that the polypharmacy risk of escalating her Cymbalta is probably higher than the pain benefit at this time. Psychiatric: Continue with pain psychology, continue with distraction techniques, dog should be allowed to visit, ongoing reassurance and education. -- In anticipation of hopeful discharge tomorrow, and making sure that there is enough lead time that she is not left without medications, fentanyl patch, refill for p.o. Dilaudid, and increased dose of gabapentin sent in today. I personally called the pharmacist to explain the medical decision making given the high risk regimen. Subjective Patient seen at bedside, calm comfortable cooperative. She is looking forward to attending a wedding shower in [place], states she would need to leave tomorrow to get there on time. Mom is concerned if her steroid dosage needs to increased, noted a decrease of pain while on higher dose steroids. Mom also concerned of having medication available upon discharge. Patient understands we are increasing her fentanyl patch to better control pain. Patient had 1 episode of 'pain seizures' while in the room, resolved quickly with 0.5mg dilaudid. Later in day peripheral line stopped working. Discussed with patient and mom given the plan to hopefully leave tomorrow, will defer PICC line and new peripheral line placement, hold TPN, rely on port for IVF and [employer]. Physical Exam Constitutional: cooperative Eyes: PERRL, conjunctivae normal, anicteric sclerae ENMT: external ear and nose normal, oropharynx normal Neck: trachea midline, no thyromegaly Respiratory: normal respiratory effort, lungs clear to auscultation Cardiovascular: RRR, no murmur, no edema Gastrointestinal (Abdomen): colostomy bag in tact. G tube in tact Skin: no rashes, warm and dry Results & Data Results & Data Vital Signs (Past 12 Hours) Vital Signs Temp Pulse Resp BP Pulse Ox O2 Del Method 10/23/22 04:19 36.4 C L 80 20 114/76 97 Room Air 10/23/22 00:11 36.7 C 87 20 118/85 95 Room Air 10/22/22 20:10 36.6 C 80 20 99/66 L 96 Room Air Resident Activity Tracking Resident Involvement: Resident Care Provided Care Provided: Adult Hospital Medicine
[2022-10-23] MEDS: GABAPENTIN 250 MG/5 ML 470 ML BTL PO SCH ×3 (08:04→20:51)
[2022-10-23] MEDS: FAMOTIDINE 20 MG TAB PO SCH ×2 (09:11→20:39)
[2022-10-23] MEDS: DICYCLOMINE HCL 20 MG TAB PO PRN ×2 (09:11→17:13)
[2022-10-23] MEDS: DULoxetine HCL 60 MG CAP PO SCH (09:11)
[2022-10-23] MEDS: HYDROCORTISONE 10 MG TAB PO SCH ×2 (09:12→14:32)
[2022-10-23] MEDS: FLUDROCORTISONE ACETATE 0.1 MG TAB PO SCH ×2 (09:12→20:38)
[2022-10-23] MEDS: METHOCARBAMOL 750 MG TABLET PO SCH ×3 (09:13→20:38)
[2022-10-23] MEDS: PANTOprazole 40 MG TAB PO SCH (09:13)
[2022-10-23] MEDS: PYRIDOXINE HCL 50 MG TAB PO SCH (09:13)
[2022-10-23] MEDS: POLYETHYLENE (MIRALAX) 17 GM PACK PO SCH (09:14)
[2022-10-23] MEDS ORDERED: fentaNYL 25 MCG/HR TDSY TD SCH (09:45)
[2022-10-23 10:29] LABS: Calcium 8.6 mg/dl (8.6-10.3); Magnesium 1.9 mg/dl (1.7-2.4); Potassium 3.7 mmol/L (3.5-5.1)
[2022-10-23 10:35] LABS: BUN Creatinine Ratio 27.6 (10-20); Creatinine Clr Calc Pharmacy 132.8 ml/min; Est GFR (African American) 143.4 ml/min; Est GFR (Non-African American) 123.7 ml/min; Phosphorus 4.1 mg/dl (2.5-4.9)
[2022-10-23] MEDS: fentaNYL 50 MCG/HR TDSY TD SCH (11:03)
[2022-10-23] MEDS: SODIUM CHLORIDE 0.9% 1000ML 1,000 ML IV SCH (11:09)
[2022-10-23] MEDS: D5W AND NSS 1,000 ML IV SCH (15:10)
[2022-10-23] MEDS ORDERED: HYDROCORTISONE 10 MG TAB PO ONE (16:02)
--- NOTE | 2022-10-23 16:57 | Billing Data ---
Date of Service October 23, 2022 Coding Level of Care Code 29281 SUB INP/OBS CARE MIN
[2022-10-23] MEDS: ENOXAPARIN INJ 40 MG/0.4 ML SYR SQ SCH (20:39)
[2022-10-23] MEDS: FEXOFENADINE HCL 180 MG TAB PO SCH (20:39)
[2022-10-24] MEDS: HYDROmorphone INJ 1 MG/ML SYRINGE IV PRN ×3 (00:16→09:32)
[2022-10-24] MEDS: ONDANSETRON INJ 2 MG/ML 2 ML VIAL IV PRN (00:17)
[2022-10-24] MEDS: HYDROMORPHONE HCL 1 MG/ML GT SCH ×6 (01:30→13:50)
[2022-10-24] MEDS: PATIENT'S OWN CONTROLLED MED 1 PO SCH ×6 (01:30→13:53)
[2022-10-24] MEDS ORDERED: Nursing to Pharmacy Communication SCH (02:00)
[2022-10-24] MEDS: D5W AND NSS 1,000 ML IV SCH (03:29)
[2022-10-24] MEDS: LORazepam 2 MG/1 ML VIAL IV PRN ×2 (06:12→12:31)
[2022-10-24] MEDS ORDERED: HYDROCORTISONE 10 MG TAB PO SCH ×2 (09:00→14:00)
[2022-10-24 09:26] LABS: BUN Creatinine Ratio 13.6 (10-20); Calcium 8.3 mg/dl (8.6-10.3); Creatinine Clr Calc Pharmacy 142.9 ml/min; Est GFR (African American) 142.5 ml/min; Magnesium 1.7 mg/dl (1.7-2.4); Phosphorus 4.2 mg/dl (2.5-4.9); Potassium 3.1 mmol/L (3.5-5.1)
[2022-10-24] MEDS: PYRIDOXINE HCL 50 MG TAB PO SCH (09:37)
[2022-10-24] MEDS: FLUDROCORTISONE ACETATE 0.1 MG TAB PO SCH (09:37)
[2022-10-24] MEDS: METHOCARBAMOL 750 MG TABLET PO SCH ×2 (09:37→09:45)
[2022-10-24] MEDS: DICYCLOMINE HCL 20 MG TAB PO PRN (09:37)
[2022-10-24] MEDS: PANTOprazole 40 MG TAB PO SCH (09:37)
[2022-10-24] MEDS: FAMOTIDINE 20 MG TAB PO SCH (09:37)
[2022-10-24] MEDS: DULoxetine HCL 60 MG CAP PO SCH (09:37)
[2022-10-24] MEDS: POLYETHYLENE (MIRALAX) 17 GM PACK PO SCH (09:52)
[2022-10-24] MEDS: CHECK fentaNYL PATCH PLACEMENT SCH ×2 (09:52)
[2022-10-24] MEDS: GABAPENTIN 250 MG/5 ML 470 ML BTL PO SCH (10:32)
--- NOTE | 2022-10-24 12:53 | Discharge Summary ---
Date of Service October 24, 2022 Admission HPI Per Admitting Provider 32yo female with non-epileptic seizures, adrenal insufficiency, and an extensive GI history including gastroparesis, ostomy placement, intractable abdominal pain, and multiple GI surgeries presents with a few-day history of worsening abdominal pain and one day of multiple seizure-like episodes. - abdominal pain has been worsening over the past few days without clear trigger - has also had nausea, vomiting, poor appetite, and low ostomy output - had been doing relatively well prior; patient has been tapering down on her home pain regimen and discontinued her fentanyl patch 1-2 weeks ago - patient has had eight episodes of seizure-like activity, which she believes were triggered by significantly worsened abdominal pain - patient is awaiting a five-day admission, planned for next month, at the epilepsy unit at [facility] for further workup - of note but unrelated, patient sprained her right ankle in July and is wearing an orthopedic boot Patient denies fever, chills, headache, vision changes, CP, palpitations, SOB, dysuria, hematochezia, melena, back pain, dizziness, numbness, tingling, weakness, or other symptoms. Denies recent illness and recent travel. Upon arrival, vitals were notable for tachycardia (108); BP controlled, no tachypnea, patient afebrile, spO2 adequate on room air. Initial labs were notable for mild anemia (11.9); no leukocytosis, platelets wnl, no electrolyte abnormalities, creatinine not elevated, LFTs wnl, Tbili not elevated. In the ED, patient received NSS 1L bolus (x2), zofran, and dilaudid. Imaging: CT head: no acute abnormality CT a/p: mild thickening of the vaginal wall which is nonspecific; mild bladder wall thickening likely due to underdistention; no bowel wall thickening or obstruction; small amount of fluid at the umbilicus, unchanged from prior; there are multiple small bowel loops abutting the anterior abdominal wall at the level of the umbilicus; an underlying enterocutaneous fistula is not clearly identified but would be in the differential diagnosis Admission Exam Per Admitting Provider Constitutional: tired-appearing, no acute distress HEENT: MMM CV: regular rhythm, no murmur appreciated, extremities well-perfused, no LE edema Resp: CTABL, no wheezes/rales/rhonchi appreciated, no increased work of breathing GI: soft, nondistended, mild RUQ/LUQ tenderness, moderate RLQ/LLQ tenderness, severe suprapubic tenderness MSK: right foot in orthopedic boot Skin: abdominal ostomy in place, no surrounding erythema or edema Neuro: alert, oriented, no focal neurologic deficit appreciated Principal Diagnosis Acute exacerbation of chronic abdominal pain Discharge Exam Constitutional: cooperative Eyes: PERRL, conjunctivae normal, anicteric sclerae ENMT: external ear and nose normal, oropharynx normal Neck: trachea midline, no thyromegaly Respiratory: normal respiratory effort, lungs clear to auscultation Cardiovascular: RRR, no murmur, no edema Gastrointestinal (Abdomen): colostomy bag in tact. G tube in tact Skin: no rashes, warm and dry Discharge Data Allergies Allergy/AdvReac Type Severity Reaction Status Date / Time diphenhydramine Allergy Severe Anaphylaxis Verified 09/26/22 14:10 promethazine Allergy Severe hives, Verified 09/26/22 14:10 throat swelling adhesive Allergy Intermediate Redness of Verified 09/26/22 14:10 Skin amoxicillin Allergy Intermediate RASH Verified 09/26/22 14:10 calcium Allergy Intermediate SEE COMMENT Verified 09/26/22 14:10 [From VIACTIV Multi-Vitamin] cefazolin Allergy Intermediate rash Verified 09/26/22 14:10 Cephalosporins Allergy Intermediate HIVES Verified 09/26/22 14:10 clavulanic acid Allergy Intermediate HIVES Verified 09/26/22 14:10 ferric carboxymaltose Allergy Intermediate Rash Verified 09/26/22 14:10 [From Injectafer] folic acid Allergy Intermediate SEE COMMENT Verified 09/26/22 14:10 [From VIACTIV Multi-Vitamin] iron [From Venofer] Allergy Intermediate Muscle Pain Verified 09/26/22 14:10 multivitamin with minerals Allergy Intermediate SEE COMMENT Verified 09/26/22 14:10 [From VIACTIV Multi-Vitamin] Penicillins Allergy Intermediate HIVES Verified 09/26/22 14:10 prochlorperazine Allergy Intermediate HIVES Verified 09/26/22 14:10 sulfamethoxazole Allergy Intermediate RASH Verified 09/26/22 14:10 sumatriptan Allergy Intermediate RASH Verified 09/26/22 14:10 trimethoprim Allergy Intermediate RASH Verified 09/26/22 14:10 metoclopramide AdvReac Severe anxiety/ Verified 09/26/22 14:10 jittery morphine AdvReac Severe Severe Verified 09/26/22 14:10 abdominal Pain, sphincter of oddi spasms erythromycin base AdvReac Intermediate GI SYMPTOMS Verified 09/26/22 14:10 citalopram [From Celexa] AdvReac Unknown CAN'T Verified 09/26/22 14:10 REMEMBER Consultations 10/06/22 20:41 ED Decision to Admit Stat Ordered Studies 10/06/22 17:04 CT head/brain wo con Stat 10/06/22 18:31 CT Abd and Pelvis [CT abd pelvis IV con only] Stat Hospital Course (1) Seizure-like activity: Yovany is a 32 year-old female with non-epileptic seizures, adrenal insuffi ciency, and an extensive GI history including gastroparesis, ostomy placement, intractable abdominal pain, and multiple GI surgeries presented with worsening abdominal pain triggering multiple non-epileptic seizures. Patient prescribed fentanyl patches 75mcg q3D Increased PO liquid dilaudid to 4mg q2h, patient to use PRN in outpatient Increased hydrocortisone to 25mg in morning 20mg in afternoon as stress dose until Thursday follow up with Endocrinology Repeat labs on Thursday Increased fluids to daily 1L bolus LR TPN orders renewed Consider abdominal trigger point injection in outpatient Acute exacerbation of chronic Abdominal Pain: Extensive GI History, G-Tube Dependence, Chronic Malnutrition Patient with extensive GI history and chronic abdominal pain. Etiology unclear for most recent pain flare. Labs unremarkable. Imaging unchanged. Continue home methocarbamol, dicyclomine, Cymbalta, and gabapentin. Will monitor QA TEST LEAD usage and transition to similar MME dosing of PO as tolerated. Will encourage trial of PO prior to using QA TEST LEAD unless pain unmanageable. Liquid Dilaudid not on formulary - using home dose. Currently receiving ~500 MME daily. Fentanyl patch- was weaned off of entirely as outpatient for consideration of bowel transplant but resumed in recent weeks. Pain Regimen: QA TEST LEAD 0.5 mg q30 minutes, patient advised to try oral and IV options first PO liquid Dilaudid increased to (4mg q2h scheduled), ideally prior to using QA TEST LEAD (192 MME) IV dilaudid 1mg HS while in hospital Fentanyl patch increased to 75mcg daily (180MME) IV Tylenol while in hospital Gabapentin - 300 QAM 600 Qmid day, 600 HS Abdominal trigger point injections done 10/09, consider repeat in outpatient Daily miralax Using 1mg IV dilaudid q4h for 'breakthrough pain seizures' in hospital Patient has benefited from LR boluses, continue home regime 1L LR daily Nausea Regimen: 1. IV Zofran Q4H PRN 2. PRN Ativan for nausea Nutrition: TPN, dietitian consulted, no vitamin supplements in TPN (patient does not tolerate) -TPN ordered for home, with famotidine and thiamine Seizure-like activity Patient with history of nonepileptic seizures which in the past have been triggered by abdominal pain. Plan for EMU admission in October at [facility]. Will hold off on AEDs at this time Pain control plan noted above Adrenal Insufficiency had received stress dose steroids earlier in hospital course, mom feels she zuniga d less pain then -home dose hydrocortisone 15mg am 10mg pm -at this time will try stress dosing hydrocortisone 25mg am 20mg pm, she has followup with endocrine this thursday Anemia -Hgb 10.8 (11.4 prior) -Has required iron infusions in the past -Ferritin level 125.9 -B12 443 normal Right Ankle Sprain Occurred in July; right foot is in an orthopedic boot PT/OT ordered (2) Abdominal pain: (3) Nausea: (4) Right ankle sprain: (5) Adrenal insufficiency: (6) Chronic malnutrition: (7) Gastrostomy tube in place: (8) DVT prophylaxis: Total Time Total Time Spent Total Time Spent (In Minutes): <30 Discharge Plan Discharge Items Patient Disposition: Home - Self-Care Reason For Visit: ABDOMINAL PAIN, NAUSEA, VOMITING Discharge Diagnosis: Acute on Chronic Abdominal pain Activity: Resume your previous activity Non-emergency contact: Primary Care Provider Call non-emergency contact if: your symptoms worsen, your pain is not controlled and you have a fever Follow-up/Referrals: Mariah Addison, [Primary Care Provider] - (PLEASE CALL YOUR PRIMARY CARE PROVIDER TO SCHEDULE A HOSPITAL DISCHARGE FOLLOW-UP WITHIN 7-10 DAYS.) Diet: Regular Addtl Attending Provider Instructions: You were admitted to the hospital for Acute Exacerbation of your Chronic Abdominal Pain. You were treated with narcotic pain medication, IV fluids, trigger point injections, and stress dose steroids. Your symptoms have improved at this time. Please have close follow up with your PCP. Should your symptoms worsen during your trip to [place], please locate the nearest hospital. A discharge summary will be sent to your primary care physician to ensure continuity of care. Please bring this discharge summary with you to your next office appointment so that your provider can review it at that time. Follow-up appointments: Make a follow-up appointment with your PCP within the next week. It is very important that you follow up with them shortly after discharge from the hospital. Keep all your follow-up appointments as already scheduled. If you cannot make an appointment, notify your provider. Medications: Your medication list has been reviewed and reconciled upon discharge to ensure accuracy and continuity of care. An updated list of all your medications is included with your hospital discharge paperwork. Please review this list closely, and make note of any changes. * We increased your fentanyl patch to 75mcg. Please change the patch every 3 days and discard your old patch. Avoid any direct application of heat to your patch. * We increased your hydrocortisone to 25mg in the morning and 20mg in the afternoon. Please continue with this dosage for 3 days until you can see your minister assistant on Thursday. If that appointment is delayed, we recommend you return to your original dosing of 15mg hydrocortisone in the morning and 10mg in the afternoon. * Please continue running 1 liter of IV fluids through your port every day for hydration support * Please continue with oral dilaudid Take your medications as instructed; do not skip a dose of your medicines. Make sure all of your doctors know every medicine you are taking (including esvd-vmo-unsmntu medicines, vitamins, and supplements). Call your primary care provider before taking any new medicines (including kxjn-fkq-dlcvugc medicines, vitamins, and supplements), because some of these may interact with your current medications, or may make your symptoms worse. Tell your primary care provider if you cannot afford your medications. CONTACT YOUR PRIMARY CARE PROVIDER if you experience any of the following: Difficulty following your treatment plan, or difficulty taking medications CALL 911 OR GO TO THE EMERGENCY DEPARTMENT if you experience any of the fo llowing: Sudden, severe abdominal pain or nausea/vomiting Severe chest pain, or chest pain that radiates (moves) to your jaw or arm Sudden, severe shortness of breath or difficulty breathing Thank you for allowing us to participate in your care. 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, but for your purposes essentially assume that there's adhesional and motility mediated pain as a big part of her acute story - but she's rarely deteriorated into true surgical emergencies - so certainly evaluate for catastrophes but typically her admissions have been more acute pain control issues -she's well adept at viewing her pain as a spectrum from the somatic to the psychologic - and if things "get deep" certainly we'd appreciate outside views and insights on management across the continuum, but for "just the basics" acute management - pain crises with yovany typically get reigned in with: hydromorphone QA TEST LEAD (most recently 0.5mg [id number] via QA TEST LEAD, 0mg continuous) and occasional additional 1mg breakthrough doses. fentanyl patch titrated up to 75mcg on 10/23/22, she was previously stable for a while on 75mcg, so i doubt additional titration will be needed but certainly can if clinically required -pseudoseizures look worrisome - but having been at the bedside for countless - essentially they started as a pain-mediated vagal response. this, amplified by her POTS, leads to transient LOC and convulsive activity. i've generally viewed it as a sign that her pain is less well controlled than optimal (to "split hairs" not that we need to treat the pseudoseizures acutely with more meds as a "stat prn" but more that our overall control isn't there yet) ---feel free to call for more background/insight: Ramses Layne DO (hospitalist [facility] [phone] or main band bias machine operator [phone]) PCP Mariah Addison DO [facility] Family [facility] [phone] Pending Studies at Discharge: No Stand-Alone Forms: My [facility], Smoking Cessation Medications and DC Order Prescriptions: New fentanyl 75 mcg/hr patch 72 hour 1 patch transdermal Q72H Qty: 10 0RF hydromorphone 1 mg/mL liquid 4 mg PO Q4H PRN (Reason: pain) Qty: 473 0RF Continued pyridoxine (vitamin B6) 50 mg tablet 50 mg PO DAILY famotidine 40 mg tablet 20 mg PO BID Rx Instructions: 1/2 tablet dose dicyclomine 10 mg Capsule 10 - 20 mg PO Q6H PRN (Reason: Abdominal Pain) pantoprazole [Protonix] 40 mg tablet,delayed release (DR/EC) 40 mg PO QAM lorazepam [Ativan] 2 mg/mL Solution 0.5 mg buccal QID PRN (Reason: Nausea) Rx Instructions: DIRECTED 0.5 MG (0.25 ML) fexofenadine 180 mg Tablet 180 mg PO PM methocarbamol 750 mg Tablet 750 mg PO TID cholecalciferol (vitamin D3) [Vitamin D3] 25 mcg (1,000 unit) Capsule 50 mcg PO DAILY duloxetine 60 mg capsule,delayed release(DR/EC) 60 mg PO DAILY ondansetron 8 mg tablet,disintegrating 8 mg PO TID PRN (Reason: Nausea) hydromorphone 1 mg/mL Liquid 4 mg PO Q4H PRN (Reason: Pain) Qty: 473 0RF gabapentin 250 mg/5 mL solution 300 mg PO TID Qty: 473 0RF Rx Instructions: 300mg (6ml) in AM, 600mg (12ml) mid day, 600mg (12ml) HS fludrocortisone 0.1 mg tablet 0.1 mg PO BID acetaminophen [Tylenol Extra Strength] 500 mg Tablet 1,000 mg PO Q6H PRN (Reason: Pain) Multivitamin Gummies 200 mcg Tablet,Chewable 2 tab PO PM turmeric 400 mg Capsule 400 mg PO PM Rx Instructions: Takces 1 cap daily coenzyme Q10 [CoQ-10] 100 mg capsule 100 mg PO PM Rx Instructions: Takes 1 tab daily UNKNOWN STRENGTH (DME) Enema Bottle Bottle See Rx Instructions .Route Qty: 72 0RF Rx Instructions: As directed Held hydrocortisone 10 mg tablet 10 - 15 mg PO BID Hold Instructions: Resume on 10/27/22. Please take hydrocortisone 25mg in the morning and 20mg in the afternoon until your thursday followup with endocrinology Rx Instructions: TAKE 15 MG EVERY MORNING AND 10 MG EVERY AFTERNOON Discontinued fentanyl 25 mcg/hr Patch 72 Hour 1 patch TRANSDERMAL Q72H Discharge Orders: Discharge Order (Routine); Ordered 10/24/22 Ordered By: Yadira Velazquez Admission Data Admit Date/Time: 10/08/22 14:20 Attending Provider: Ramses Layne Admit Provider: Vipul Morillo Primary Care Provider: Mariah Addison Other Providers: Dioni Kumar ; Anil Fair Other Interventions: Discharge Summary Assessment (RN) Last Done: 10/24/22 14:30 Supervising Physician Co-Signing Physician Notes I personally examined the patient and verified all solorzano points of history and exam, discussed case, and agree with decision making with Dr Velazquez. would like to go home - anxious but feels like she'll probably do ok. discussed management, follow up, "emergency failsafes". Vitals noted, in general she is awake and alert pleasant no distress. HEENT normocephalic atraumatic mucous membranes moist. Breathing unlabored no accessory muscle use good effort. Skin shows no rashes no pallor or icterus. Neuro without focal deficits. Uncontrolled pain with subsequent pain induced pseudoseizuressomatic pain: Seems to either be adhesional, narcotics related bowel slowing, or other motilityrehydration seems to have affected a major change will need to increase her home hydration as outpatient -asked case management to have 1L daily set up through home health; managing the chronic part of the painincreased fentanyl patch to 75, continue 4mg po prn breakthrough. Somatic/neuropathic overlap:trigger points present, injected in the seems to help with the nauseaand possibly some with pain, was initially planning on reinjecting this week, and less her symptoms continue to improve nicely in which case we will hold off so as to not potentially affect any confounding factorsand given that her symptoms could have multifaceted causes, we discussed trying to start to parse apart what feels different based on response to trigger point injections to be able to help titrate repeat injections as an outpatient. Neuropathic: Escalated gabapentin previously, send home on higher doses. ASTHMA EDUCATOR facilitation: Present, but I feel that the polypharmacy risk of escalating her Cymbalta is probably higher than the pain benefit at this time. Psychiatric: Continue with pain psychology, continue with distraction techniques, dog, ongoing reassurance and education. -- home for now, close f/u. Rx's sent yesterday to allow time for filling and called pharmacy personally to update pharmacist Resident Activity Tracking Resident Involvement: Resident Care Provided Care Provided: Adult Hospital Medicine
[2022-10-24] MEDS: SODIUM CHLORIDE 0.9% 1000ML 1,000 ML IV SCH (13:52)
[2022-10-24] MEDS: HEPARIN 100 UNIT/ML 5ML FLUSH FLUSH PRN (13:59)
[2022-10-24] MEDS: HYDROmorphone PCA 30 MG/30 ML IV PRN (14:13)
--- NOTE | 2022-10-24 18:01 | Billing Data ---
Date of Service October 24, 2022 Coding Level of Care Code 02686 IN/OBS DISCH 30 MIN/LESS
== END 2022-10-24 14:15 | disposition home or self-care (01) | DRG 392 ==
LOC: ED 16:48 → 2W 16:48 → SUATTDRO 20:42 → 2W 22:52 → SUATTDRO 10-08 14:20

== ENCOUNTER 2023-02-24 03:42 | Inpatient (IN) ==
[2023-02-24] MEDS ORDERED: KETOROLAC TROMETHAMINE 15 MG/ML VIAL IV STA (03:56)
[2023-02-24] MEDS ORDERED: ACETAMINOPHEN 1,000 MG/100 ML VIAL IV STA (03:56)
[2023-02-24] MEDS ORDERED: SODIUM CHLORIDE 0.9% 1,000 ML IV SCH (04:00)
[2023-02-24] MEDS ORDERED: ONDANSETRON INJ 2 MG/ML 2 ML VIAL IV STA (04:00)
[2023-02-24] MEDS: fentaNYL citrate PF 100 MCG/2 ML VIAL IV PRN ×3 (04:13→05:49)
--- NOTE | 2023-02-24 04:19 | Emergency Department Note ---
History of Present Illness General Chief complaint: Abdominal Pain Stated complaint: ABDOMINAL PAIN/SEIZURE Time Seen by Provider: 02/24/23 03:47 History of Present Illness Maximum Pain Intensity: 10 This is a 33-year-old female presenting to the emergency department for evaluation of abdominal pain and seizure-like episode. Patient is well-known to this facility, and has complicated history of abdominal issues. Patient states that there was severe acute onset of abdominal pain around midnight tonight, with multiple seizure-like episodes. EMS was contacted to the home and patient did receive IV Toradol 15 mg as well as 2 doses of Ativan. Patient is describing a knot-like sensation in the right side abdomen with severe pelvic and abdominal pain. She is nauseated. She may have had a small amount of discharge from her rectal space. Patient is reportedly scheduled for a spinal stimulator placement in 6 days. She did have a celiac plexus block performed about 3 months ago, and has been doing better than normal since then. She is on chronic liquid oxycodone as well as fentanyl patches at home, and despite this rates her pain a 02/24. Home Medications Medication Instructions Recorded Confirmed Type dicyclomine 10 mg capsule 10 - 20 mg PO Q6H PRN Abdominal 03/07/18 02/17/23 History Pain pantoprazole 40 mg tablet,delayed 40 mg PO QAM 09/08/19 02/17/23 History release (Protonix) famotidine 40 mg tablet 20 mg PO BID 11/28/19 02/17/23 History hydrocortisone 10 mg tablet 0 mg PO BID 02/07/20 02/17/23 History fexofenadine 180 mg tablet 180 mg PO PM 10/09/20 02/17/23 History fludrocortisone 0.1 mg tablet 0.1 mg PO BID 12/12/20 02/17/23 History acetaminophen 500 mg tablet 1,000 mg PO Q6H PRN Pain 06/13/21 02/17/23 History (Tylenol Extra Strength) multivitamin with minerals-folic 2 tab PO PM 06/13/21 02/17/23 History acid 200 mcg chewable tablet (Multivitamin Gummies) turmeric 400 mg capsule 400 mg PO PM 06/13/21 02/17/23 History empty container (Enema Misc Bottle) #72 ea 01/16/22 02/17/23 Rx cholecalciferol (vitamin D3) 25 50 mcg PO DAILY 11/21/22 10/03/23 History mcg (1,000 unit) capsule (Vitamin D3) duloxetine 60 mg capsule,delayed 60 mg PO DAILY 04/07/22 02/17/23 History release methocarbamol 750 mg tablet 750 mg PO TID 04/07/22 02/17/23 History coenzyme Q10 100 mg capsule 100 mg PO PM 07/22/22 02/17/23 History (CoQ-10) pyridoxine (vitamin B6) 50 mg 50 mg PO DAILY 07/22/22 02/17/23 History tablet ondansetron 8 mg disintegrating 8 mg PO TID PRN Nausea 10/06/22 02/17/23 History tablet fentanyl 75 mcg/hr transdermal 1 patch transdermal Q72H #10 ea 10/23/22 02/17/23 Rx patch lorazepam 2 mg/mL injection 0.5 mg (0.25 mL) buccal QID PRN 12/04/22 02/17/23 Rx solution (Ativan) Nausea #100 mL bethanechol chloride 25 mg tablet 12.5 mg PO BID PRN urinary 12/05/22 02/17/23 Rx retention #20 tabs gabapentin 250 mg/5 mL oral 600 mg (12 mL) PO TID #250 mL 12/05/22 02/17/23 Rx solution levothyroxine 50 mcg tablet 50 mcg PO DAILY #30 tabs 12/05/22 02/17/23 Rx (Synthroid) oxycodone 5 mg/5 mL oral solution 5 mg (5 mL) PO Q4H PRN pain #250 mL 12/05/22 02/17/23 Rx diazepam 5 mg tablet 5 mg PO .COMPLEX #3 tabs 12/23/22 02/17/23 Rx Allergies Allergy/AdvReac Type Severity Reaction Status Date / Time diphenhydramine Allergy Severe Anaphylaxis Verified 02/17/23 14:21 promethazine Allergy Severe hives, Verified 02/17/23 14:21 throat swelling adhesive Allergy Intermediate Redness of Verified 02/17/23 14:21 Skin amoxicillin Allergy Intermediate RASH Verified 02/17/23 14:21 calcium Allergy Intermediate SEE COMMENT Verified 02/17/23 14:21 [From VIACTIV Multi-Vitamin] cefazolin Allergy Intermediate rash Verified 02/17/23 14:21 Cephalosporins Allergy Intermediate HIVES Verified 02/17/23 14:21 clavulanic acid Allergy Intermediate HIVES Verified 02/17/23 14:21 ferric carboxymaltose Allergy Intermediate Rash Verified 02/17/23 14:21 [From Injectafer] folic acid Allergy Intermediate SEE COMMENT Verified 02/17/23 14:21 [From VIACTIV Multi-Vitamin] iron [From Venofer] Allergy Intermediate Muscle Pain Verified 02/17/23 14:21 multivitamin with minerals Allergy Intermediate SEE COMMENT Verified 02/17/23 14:21 [From VIACTIV Multi-Vitamin] Penicillins Allergy Intermediate HIVES Verified 02/17/23 14:21 prochlorperazine Allergy Intermediate HIVES Verified 02/17/23 14:21 sulfamethoxazole Allergy Intermediate RASH Verified 02/17/23 14:21 sumatriptan Allergy Intermediate RASH Verified 02/17/23 14:21 trimethoprim Allergy Intermediate RASH Verified 02/17/23 14:21 metoclopramide AdvReac Severe anxiety/ Verified 02/17/23 14:21 jittery morphine AdvReac Severe Severe Verified 02/17/23 14:21 abdominal Pain, sphincter of oddi spasms erythromycin base AdvReac Intermediate GI SYMPTOMS Verified 02/17/23 14:21 citalopram [From Celexa] AdvReac Unknown CAN'T Verified 02/17/23 14:21 REMEMBER Past Med/Surg History Medical History (Updated 02/24/23 @ 06:34 by Craig Foster PA-C) Abdominal pain Asthma Chronic migraine Chronic, continuous use of opioids Colitis Dehydration Diversion colitis DVT prophylaxis Elevated lipase Endometriosis has had 3 surgeries for this. Last surgery [address] Hemorrhagic cystitis Hypotension Intussusception Nausea Nausea and vomiting Pancreatitis PICC (peripherally inserted central catheter) in place TPN SMAS (superior mesenteric artery syndrome) History of SMAS SMAS (superior mesenteric artery syndrome) Sphincter of Oddi dysfunction DECREASED GI MOTILITY Transaminitis Uses feeding tube gastroparesis and decreased GI motility can not tolerate feeding and uses TPN UTI (urinary tract infection) Surgical History H/O adenoidectomy H/O laparoscopy H/O lumpectomy right breast 2011 History of appendectomy History of bowel resection Part of duodenum removed due to necrosis; done at [facility] 2019 History of hysterectomy 09/27/19 History of removal of Port-a-Cath 10/13/[address] Geiger, [facility], due to bacteremia/sepsis. History of vascular access device 2017 Hx of colonoscopy during procedure perforated small bowel 10/27/2019 at [facility], subsequent repair of duodenal area. Hx of ileostomy Hx of tonsillectomy S/P cholecystectomy 2015 S/P wrist surgery right Family History Father Hyperlipidemia Other No significant family history Social History Smoking Status: Never smoker Second Hand Exposure: No; Do You Dip or Chew Tobacco: No; Hx Alcohol Use: No Hx Substance Use: No Preferred Language: Mauritanian Communication Ability: Effective Visual Impairment: No Limitations Hearing Ability: Normal University [employer] Required: No Beliefs That Will Affect Care: Spiritual marital status: Single Current Living Situation: Parent and Family Current Living Situation Comment: Lives with family. current occupational status: unemployed current occupation: completed 4-year degree at [employer] How many Children do You have: 0 Feels Safe at Home: Yes Diet: regular Sexual Activity Comment: not sexually active Assistive Devices: Brace/Splint/Immobilizer and Wheelchair Review of Systems A total of 10 systems reviewed and were otherwise negative Physical Exam Vital Signs Vital Signs - 24 hr 02/24/23 03:47 02/24/23 03:55 02/24/23 04:30 Temperature 36.7 C Temperature Source Oral Pulse Rate 98 H 96 H 101 H Pulse Strength Normal Respiratory Rate 19 13 Respiratory Effort / Characteristics Non-Labored Respiratory Depth Normal Respiratory Pattern Regular Blood Pressure 115/90 Blood Pressure Mean 98 Blood Pressure Position Lying Pulse Oximetry 97 95 Oxygen Delivery Method Room Air Room Air Sepsis Recent Fever Within 48 Hours No Sepsis New/Unexplained Change in Mental Status No Sepsis Action Taken by Nursing No Action Required 02/24/23 04:33 02/24/23 05:01 02/24/23 05:30 Temperature Temperature Source Pulse Rate 128 H 80 90 Pulse Strength Respiratory Rate 27 H 24 13 Respiratory Effort / Characteristics Respiratory Depth Respiratory Pattern Blood Pressure 124/92 117/87 118/89 Blood Pressure Mean 102 97 98 Blood Pressure Position Pulse Oximetry 97 95 Oxygen Delivery Method Room Air Room Air Sepsis Recent Fever Within 48 Hours Sepsis New/Unexplained Change in Mental Status Sepsis Action Taken by Nursing 02/24/23 06:01 Temperature Temperature Source Pulse Rate 73 Pulse Strength Respiratory Rate 15 Respiratory Effort / Characteristics Respiratory Depth Respiratory Pattern Blood Pressure 124/87 Blood Pressure Mean 99 Blood Pressure Position Pulse Oximetry 97 Oxygen Delivery Method Room Air Sepsis Recent Fever Within 48 Hours Sepsis New/Unexplained Change in Mental Status Sepsis Action Taken by Nursing VITALS: Vitals are noted on the nurse's note and reviewed by myself. Vital signs stable. GENERAL: White female who appears in moderate discomfort. She answers questions appropriately. HEAD: Normocephalic atraumatic. NECK: Supple without nuchal rigidity. No lymphadenopathy. No thyromegaly. Cervical spine is nontender. HEART: Regular rate and rhythm without murmurs gallops or rubs. LUNGS: Clear to auscultation bilaterally without wheezes, rales or rhonchi. No retractions or accessory muscle use. ABDOMEN: Positive normal bowel sounds x 4. Soft, with diffuse tenderness on palpation. Course Administered Medications Fentanyl Citrate (Fentanyl Citrate Pf 100 Mcg/2 Ml Vial) 100 mcg IV Q15M PRN PRN Reason: Pain Stop: 03/10/23 03:55 Last Admin: 02/24/23 05:49 Dose: 100 mcg Documented By: Admin: 02/24/23 04:36 Dose: 100 mcg Documented By: Admin: 02/24/23 04:13 Dose: 100 mcg Documented By: CHAI Discontinued Medications Sodium Chloride (Nss) 1,000 mls @ 999 mls/hr IV .Q1H1M EMERALD Stop: 02/24/23 05:00 Last Infusion: 02/24/23 05:34 Dose: 0 mls/hr Documented By: Admin: 02/24/23 04:16 Dose: 999 mls/hr Documented By: CHAI Acetaminophen (Ofirmev) 1,000 mg in 100 mls @ 400 mls/hr IV NOW STA Stop: 02/24/23 04:10 Last Infusion: 02/24/23 04:37 Dose: 0 mls/hr Documented By: Admin: 02/24/23 04:16 Dose: 400 mls/hr Documented By: CHAI Ketorolac Tromethamine (Ketorolac Tromethamine 15 Mg/Ml Vial) 15 mg IV NOW STA Stop: 02/24/23 03:57 Last Admin: 10/10/23 04:12 Dose: 15 mg Documented By: CHAI Ondansetron HCl (Ondansetron Inj 2 Mg/Ml 2 Ml Vial) 4 mg IV NOW STA Stop: 02/24/23 04:01 Last Admin: 02/24/23 04:12 Dose: 4 mg Documented By: CHAI Medical Decision Making Differential Diagnosis Differential diagnosis: Etiologies such as biliary colic, cholecystitis, hepatitis, pancreatitis, cardiac disease, pancreatitis, gastritis, peptic ulcer disease, appendicitis, cystitis, diverticulitis, mesenteric ischemia, inflammatory bowel disease, ileus, bowel obstruction, testicular/adnexal torsion, aortic pathology, shingles, as well as others were considered Laboratory Data 02/24/23 04:46 02/24/23 04:46 Lab Results 02/24/23 02/24/23 Range/Units 04:46 04:46 WBC 6.52 (4.8-10.8) K/ul RBC 3.91 L (4.20-5.40) M/uL Hgb 11.6 L (12.0-16.0) g/dl Hct 35.4 L (37.0-47.0) % MCV 90.5 (80.0-100.0) fL MCH 29.7 (25.0-34.0) pg MCHC 32.8 (32.0-36.0) g/dL RDW Std Deviation 42.8 (36.4-46.3) fL RDW Coeff of Tim 12.9 (11.5-14.5) % Plt Count 298 (130-400) K/uL MPV 10.1 (9.4-12.4) fL Immature Gran % (Auto) 0.3 % Neut % (Auto) 58.8 % Lymph % (Auto) 29.3 % [place] % (Auto) 9.5 % Eos % (Auto) 1.5 % Baso % (Auto) 0.6 % Neut # (Auto) 3.83 (1.40-6.50) K/uL Lymph # (Auto) 1.91 (1.20-3.40) K/uL [place] # (Auto) 0.62 H (0.11-0.59) K/uL Eos # (Auto) 0.10 (0.00-0.50) K/uL Baso # (Auto) 0.04 (0.00-0.20) K/uL Immature Gran # (Auto) 0.02 (0.01-0.20) K/uL Sodium 139 (136-145) mmol/L Potassium 3.4 L (3.5-5.1) mmol/L Chloride 106 (98-107) mmol/L Carbon Dioxide 29 (21-32) mmol/L Anion Gap 4 (3-11) BUN 8 (6-23) mg/dl Creatinine 0.72 (0.6-1.2) mg/dl Est Cr Clr Drug Dosing 106.0 ml/min Est GFR ( Amer) 129.3 ml/min Est GFR (Non-Af Amer) 111.6 ml/min BUN/Creatinine Ratio 11.1 (10-20) Glucose 91 (70-99(Fasting)) mg/dl Calcium 8.2 L (8.6-10.3) mg/dl Magnesium 1.9 (1.7-2.4) mg/dl Total Bilirubin 0.2 (0.2-1.0) mg/dl AST 14 (13-39) U/L ALT 8 (7-52) U/L Alkaline Phosphatase 71 (34-104) U/L Total Protein 6.0 (6.0-8.3) gm/dl Albumin 3.8 (3.4-5.0) gm/dl Globulin 2.2 L (2.5-4.0) gm/dl Albumin/Globulin Ratio 1.7 (0.9-2) Lipase 24 (11-82) U/L MDM Narrative Physical exam and history were performed. Nursing notes, EMR, and Medication List were personally reviewed. No social concerns were identified as barriers to patients care. Patient appears to have abdominal pain bringing her to the ER. She arrives via EMS. Mother is at bedside. Patient is well-known to myself due to frequency of visits over the years. Clinically she appears quite uncomfortable from her baseline. Her weight is up to 67 kg, and she does not appear anywhere near as wasted as she has in the past, where her lowest weight was 41 kg. IV access was established and labs were obtained. Patient does have treatment plan at this facility, and I did initiate IV fluids, IV Toradol, IV Tylenol, and antiemetics. Patient has been under consideration for ketamine treatment for her chronic pain. Initially I did try to control her pain with IV fentanyl. I did offer CT imaging to the patient, however she would like to try pain medication before considering CT scan. Patient's blood work is as above and was reviewed. She does not have a significantly elevated white blood cell count. She is mildly anemic at 11.6, however this is essentially her baseline. Kidney function is preserved. Transaminases are not diagnostic. Patient was reevaluated multiple times. She continued to have "seizures" here in the ER. She received additional IV fentanyl here in the ER. Due to the patient's continued pain and discomfort, I did reach out to the hospitalist team. Hospitalist team reached out to ICU, and arrangements are underway to consider ketamine treatment for the patient through the ICU. Please see the hospitalist dictation for further patient course, plan, and disposition. The chart was completed utilizing [employer] Speech Voice Recognition Software. Grammatical errors, random word insertions, pronoun errors, and incomplete sentences are an occasional consequence of this system due to software limitations, ambient noise, and hardware issues. Any formal questions or concerns about the content, text, or information contained within the body of this dictation should be directly addressed to the provider for clarification. . Impression & Plan Intractable pain, Generalized abdominal pain Discharge Plan Visit Data Chief Complaint: Abdominal Pain Stated Complaint: ABDOMINAL PAIN/SEIZURE ED Provider: Vipul Bojorquez ED Midlevel Provider: Craig Foster Discharge Problem: Intractable pain, Generalized abdominal pain Forms Stand Alone Forms: [facility] Prescriptions Prescriptions: No Action pyridoxine (vitamin B6) 50 mg tablet 50 mg PO DAILY diazepam 5 mg tablet 5 mg PO .COMPLEX Qty: 3 0RF Rx Instructions: 5 mg PO 1 PO qhs night prior, then 1.5 hours before procedure, then may repeat 0.5 hours prior to procedure; famotidine 40 mg tablet 20 mg PO BID Rx Instructions: 1/2 tablet dose hydrocortisone 10 mg tablet 0 mg PO BID Hold Instructions: Resume on 10/27/22. Please take hydrocortisone 25mg in the morning and 20mg in the afternoon until your thursday followup with endocrinology Rx Instructions: TAKE 15 MG EVERY MORNING AND 10 MG EVERY AFTERNOON dicyclomine 10 mg Capsule 10 - 20 mg PO Q6H PRN (Reason: Abdominal Pain) pantoprazole [Protonix] 40 mg tablet,delayed release (DR/EC) 40 mg PO QAM fexofenadine 180 mg Tablet 180 mg PO PM methocarbamol 750 mg Tablet 750 mg PO TID cholecalciferol (vitamin D3) [Vitamin D3] 25 mcg (1,000 unit) Capsule 50 mcg PO DAILY duloxetine 60 mg capsule,delayed release(DR/EC) 60 mg PO DAILY ondansetron 8 mg tablet,disintegrating 8 mg PO TID PRN (Reason: Nausea) fentanyl 75 mcg/hr patch 72 hour 1 patch transdermal Q72H Qty: 10 0RF lorazepam [Ativan] 2 mg/mL Solution 0.5 mg buccal QID PRN (Reason: Nausea) Qty: 100 0RF Rx Instructions: DIRECTED 0.5 MG (0.25 ML) oxycodone 5 mg/5 mL solution 5 mg PO Q4H PRN (Reason: pain) Qty: 250 0RF levothyroxine [Synthroid] 50 mcg tablet 50 mcg PO DAILY Qty: 30 0RF bethanechol chloride 25 mg Tablet 12.5 mg PO BID PRN (Reason: urinary retention) Qty: 20 0RF gabapentin 250 mg/5 mL Solution 600 mg PO TID Qty: 250 0RF fludrocortisone 0.1 mg tablet 0.1 mg PO BID acetaminophen [Tylenol Extra Strength] 500 mg Tablet 1,000 mg PO Q6H PRN (Reason: Pain) Multivitamin Gummies 200 mcg Tablet,Chewable 2 tab PO PM turmeric 400 mg Capsule 400 mg PO PM Rx Instructions: Takces 1 cap daily coenzyme Q10 [CoQ-10] 100 mg capsule 100 mg PO PM Rx Instructions: Takes 1 tab daily UNKNOWN STRENGTH (DME) Enema Bottle Bottle See Rx Instructions .Route Qty: 72 0RF Rx Instructions: As directed Referrals Referrals: Mariah Addison DO [Primary Care Provider] -
[2023-02-24 05:06] LABS: Basophils # (auto) 0.04 K/uL (0.00-0.20); Basophils % (auto) 0.6 %; Eosinophils % (auto) 1.5 %; Hematocrit (blood only) 35.4 % (37.0-47.0); Hemoglobin 11.6 g/dl (12.0-16.0); Immature Granulocytes # (auto) 0.02 K/uL (0.01-0.20); Immature Granulocytes % (auto) 0.3 %; Lymphocytes # (auto) 1.91 K/uL (1.20-3.40); Lymphocytes % (auto) 29.3 %; Mean Corpuscular Hemoglobin 29.7 pg (25.0-34.0); Mean Corpuscular Hgb Conc 32.8 g/dL (32.0-36.0); Mean Corpuscular Volume 90.5 fL (80.0-100.0); Mean Platelet Volume 10.1 fL (9.4-12.4); Monocytes # (auto) 0.62 K/uL (0.11-0.59); Monocytes % (auto) 9.5 %; Neutrophils # (auto) 3.83 K/uL (1.40-6.50); Neutrophils % (auto) 58.8 %; Platelet Count 298 K/uL (130-400); RDW Coefficient of Variation 12.9 % (11.5-14.5); RDW Standard Deviation 42.8 fL (36.4-46.3); Red Blood Count 3.91 M/uL (4.20-5.40); White Blood Count 6.52 K/ul (4.8-10.8)
--- NOTE | 2023-02-24 05:19 | History & Physical Report ---
Date of Service February 24, 2023 Assessment & Plan (1) Intractable pain: Plan: This is a 33yo Female with PMH complicated past medical history to include non- epileptic seizures, adrenal insufficiency and extensive GI history to include SMA syndrome, multiple GI surgeries with chronic, intractable abdominal pain, gastroparesis and dysmotility. She has an ostomy in place as well as a gastric tube for venting. She also receives TPN as well as night time IVF at h ome.Patient came to ED for concern uncontrollable abd pain. Abd Pain acute on chronic -last visit with Dr. Layne arranged protocol for pain control: * (a) assessment -- if she says it's within her normal range of things, probably OK to forego a lot of testing - she knows her journey/pain/patterns pretty well so if it's "on the beaten path" for her, it probably is OK to skip imaging/etc. if it's different, docs should 100% feel free to do what they see fit * (b) treatment (if it's within her range of normal flare up symptoms) * -liter bolus of isotonic fluids (her POTS usually gets bad as an underlying part of things - so doesn't directly cause the pain but makes her more vagal - > pseudoseizure, so isotonic bolus to help w this) * -1000mg acetaminophen IV +/- 15-30mg toradol along with it * -5-6mg ketamine (this worked surprisingly well in the icu - for several days she did well, was having ~bid dosing for a few days but a decent amount of relief would last for hours) * ---> give ~2hrs to see how she's doing post ketamine * --->if she appears to be on track, home +/- if she needs a 5mg dose of oxycodone to help get her over the top * --->if she is still in too much pain and/or the additional oxycodone wasn't enough to get her to where she can go home, then admit to us and we'll probably go ICU to be able to continue ketamine * (c) big picture plan: the trial celiac block went really well, so alley is thinking a spinal cord stim is going to be really helpful. he has to jump through a lot of hoops to make it happen. she gets a psychological eval 12/16, sees alley 12/22. he also said if the insurance process takes too long he would be willing to do a one-time nerve ?ablation (ethanol injection) that might last a few months -In ED received ketorolac 15mg fentanyl 200mcg tylenol 1g NSS 1L zofran 4mg IV within mild improvement in pain -admit to ICU for ketamine -consulted pain management -continue home oxycodone, duloxetine, gabapentin, methocarbamol, fexofenadine, tylenol -continue home pepcid protonix -continue zofran, ativan for nausea Adrenal Insufficiency -continue home fludrocortisone, hydrocortisone Hypothyroidism -continue home levothyroxine FENa: regular Code Status: Full DVT PPX: SCDs PT/OT: consider if extended hospitalization Dispo: ICU for ketamine Yadira Velazquez D.O. PGY 3, FCM (2) Visceral hyperalgesia: (3) Chronic, continuous use of opioids: (4) SMAS (superior mesenteric artery syndrome): (5) Uses feeding tube: History of Present Illness Chief Complaint: Abd Pain Primary Care Provider: Mariah Addison DO This is a 33yo Female with PMH complicated past medical history to include non-epileptic seizures, adrenal insufficiency and extensive GI history to include SMA syndrome, multiple GI surgeries with chronic, intractable abdominal pain, gastroparesis and dysmotility. She has an ostomy in place as well as a gastric tube for venting. She also receives TPN as well as night time IVF at home. Patient came to ED for concern uncontrollable abd pain starting midnight, per mom it felt like intusseception. She took her home pain medication without relief. Patient also describes 4 pain seizures prior to coming to the hospital, and 1 in the ED. At this time she is crying in bed with a towel over her eyes, describes ongoing abd pain nausea, some baseline difficulty with urination. Patient denies fever SOB chest pain, describes normal drainage from colostomy.. Patient denies any change in routine yesterday, no change in medications. In the ED patient received ketorolac 15mg fentanyl 200mcg tylenol 1 g NSS 1L zofran 4mg with some relief in abd pain. Patient has been following with pain management in outpatient, plan for spinal stimulator next thursday and would like to be out of hospital by then. Allergies Allergy/AdvReac Type Severity Reaction Status Date / Time diphenhydramine Allergy Severe Anaphylaxis Verified 02/17/23 14:21 promethazine Allergy Severe hives, Verified 02/17/23 14:21 throat swelling adhesive Allergy Intermediate Redness of Verified 02/17/23 14:21 Skin amoxicillin Allergy Intermediate RASH Verified 02/17/23 14:21 calcium Allergy Intermediate SEE COMMENT Verified 02/17/23 14:21 [From VIACTIV Multi-Vitamin] cefazolin Allergy Intermediate rash Verified 02/17/23 14:21 Cephalosporins Allergy Intermediate HIVES Verified 02/17/23 14:21 clavulanic acid Allergy Intermediate HIVES Verified 02/17/23 14:21 ferric carboxymaltose Allergy Intermediate Rash Verified 02/17/23 14:21 [From Injectafer] folic acid Allergy Intermediate SEE COMMENT Verified 02/17/23 14:21 [From VIACTIV Multi-Vitamin] iron [From Venofer] Allergy Intermediate Muscle Pain Verified 02/17/23 14:21 multivitamin with minerals Allergy Intermediate SEE COMMENT Verified 02/17/23 14:21 [From VIACTIV Multi-Vitamin] Penicillins Allergy Intermediate HIVES Verified 02/17/23 14:21 prochlorperazine Allergy Intermediate HIVES Verified 02/17/23 14:21 sulfamethoxazole Allergy Intermediate RASH Verified 02/17/23 14:21 sumatriptan Allergy Intermediate RASH Verified 02/17/23 14:21 trimethoprim Allergy Intermediate RASH Verified 02/17/23 14:21 metoclopramide AdvReac Severe anxiety/ Verified 02/17/23 14:21 jittery morphine AdvReac Severe Severe Verified 02/17/23 14:21 abdominal Pain, sphincter of oddi spasms erythromycin base AdvReac Intermediate GI SYMPTOMS Verified 02/17/23 14:21 citalopram [From Celexa] AdvReac Unknown CAN'T Verified 02/17/23 14:21 REMEMBER Home Medications Medication Instructions Recorded Confirmed Type dicyclomine 10 mg capsule 10 - 20 mg PO Q6H PRN Abdominal 03/07/18 02/17/23 History Pain pantoprazole 40 mg tablet,delayed 40 mg PO QAM 09/08/19 02/17/23 History release (Protonix) famotidine 40 mg tablet 20 mg PO BID 11/28/19 02/17/23 History hydrocortisone 10 mg tablet 0 mg PO BID 02/07/20 02/17/23 History fexofenadine 180 mg tablet 180 mg PO PM 10/09/20 02/17/23 History fludrocortisone 0.1 mg tablet 0.1 mg PO BID 12/12/20 02/17/23 History acetaminophen 500 mg tablet 1,000 mg PO Q6H PRN Pain 06/13/21 02/17/23 History (Tylenol Extra Strength) multivitamin with minerals-folic 2 tab PO PM 06/13/21 02/17/23 History acid 200 mcg chewable tablet (Multivitamin Gummies) turmeric 400 mg capsule 400 mg PO PM 06/13/21 02/17/23 History empty container (Enema Misc Bottle) #72 ea 01/16/22 02/17/23 Rx cholecalciferol (vitamin D3) 25 50 mcg PO DAILY 04/07/22 02/17/23 History mcg (1,000 unit) capsule (Vitamin D3) duloxetine 60 mg capsule,delayed 60 mg PO DAILY 04/07/22 02/17/23 History release methocarbamol 750 mg tablet 750 mg PO TID 04/07/22 02/17/23 History coenzyme Q10 100 mg capsule 100 mg PO PM 07/22/22 02/17/23 History (CoQ-10) pyridoxine (vitamin B6) 50 mg 50 mg PO DAILY 07/22/22 02/17/23 History tablet ondansetron 8 mg disintegrating 8 mg PO TID PRN Nausea 10/06/22 02/17/23 History tablet fentanyl 75 mcg/hr transdermal 1 patch transdermal Q72H #10 ea 10/23/22 02/17/23 Rx patch lorazepam 2 mg/mL injection 0.5 mg (0.25 mL) buccal QID PRN 12/04/22 02/17/23 Rx solution (Ativan) Nausea #100 mL bethanechol chloride 25 mg tablet 12.5 mg PO BID PRN urinary 12/05/22 02/17/23 Rx retention #20 tabs gabapentin 250 mg/5 mL oral 600 mg (12 mL) PO TID #250 mL 12/05/22 02/17/23 Rx solution levothyroxine 50 mcg tablet 50 mcg PO DAILY #30 tabs 12/05/22 02/17/23 Rx (Synthroid) oxycodone 5 mg/5 mL oral solution 5 mg (5 mL) PO Q4H PRN pain #250 mL 12/05/22 02/17/23 Rx diazepam 5 mg tablet 5 mg PO .COMPLEX #3 tabs 12/23/22 02/17/23 Rx Past Med/Surg History Medical History (Updated 02/24/23 @ 06:34 by Craig Foster PA-C) Abdominal pain Asthma Chronic migraine Chronic, continuous use of opioids Colitis Dehydration Diversion colitis DVT prophylaxis Elevated lipase Endometriosis has had 3 surgeries for this. Last surgery [address] Hemorrhagic cystitis Hypotension Intussusception Nausea Nausea and vomiting Pancreatitis PICC (peripherally inserted central catheter) in place TPN SMAS (superior mesenteric artery syndrome) History of SMAS SMAS (superior mesenteric artery syndrome) Sphincter of Oddi dysfunction DECREASED GI MOTILITY Transaminitis Uses feeding tube gastroparesis and decreased GI motility can not tolerate feeding and uses TPN UTI (urinary tract infection) Surgical History H/O adenoidectomy H/O laparoscopy H/O lumpectomy right breast 2011 History of appendectomy History of bowel resection Part of duodenum removed due to necrosis; done at [facility] 2019 History of hysterectomy 09/27/19 History of removal of Port-a-Cath 10/13/[address] Geiger, [facility], due to bacteremia/sepsis. History of vascular access device 2017 Hx of colonoscopy during procedure perforated small bowel 10/27/2019 at [facility], subsequent repair of duodenal area. Hx of ileostomy Hx of tonsillectomy S/P cholecystectomy 2015 S/P wrist surgery right Family History Father Hyperlipidemia Other No significant family history Social History Smoking Status: Never smoker Second Hand Exposure: No; Do You Dip or Chew Tobacco: No; Hx Alcohol Use: No Hx Substance Use: No Preferred Language: Kinyarwanda Communication Ability: Effective Visual Impairment: No Limitations Hearing Ability: Normal [employer] Required: No Beliefs That Will Affect Care: Spiritual marital status: Single Current Living Situation: Parent and Family Current Living Situation Comment: Lives with family. current occupational status: unemployed current occupation: completed 4-year degree at [employer] How many Children do You have: 0 Feels Safe at Home: Yes Diet: regular Sexual Activity Comment: not sexually active Assistive Devices: Brace/Splint/Immobilizer and Wheelchair Physical Exam Constitutional: well developed, well nourished, + acute distress and cooperative ENMT: external ear and nose normal, oropharynx normal Neck: trachea midline, no thyromegaly Respiratory: normal respiratory effort, lungs clear to auscultation Cardiovascular: RRR, no murmur, no edema Gastrointestinal (Abdomen): Percussion/Palpation: + abdomen tender and abdomen soft noted colostomy and G tube, no surrounding erythema/exudate noted Skin: no rashes, warm and dry Results & Data Results & Data Vital Signs (Past 12 Hours) Vital Signs Temp Pulse Resp BP Pulse Ox O2 Del Method 02/24/23 04:33 128 H 27 H 124/92 02/24/23 04:30 101 H 13 95 Room Air 02/24/23 03:55 96 H 02/24/23 03:47 36.7 C 98 H 19 115/90 97 Room Air Supervising Physician Co-Signing Physician Notes Attending addendum: I have physically seen this patient, have supervised the medical residents activities, and agree with the H&P unless as otherwise noted. Assessment and Plan: Acute on chronic abdominal pain/visceral hyperalgesia- Patient had been given Ativan 2 mg IV and Toradol 15 mg IV en route to the ED by EMT Prior outline recommended by Dr. Layne at previous hospitalization, the patient was given the following in the ED: Acetaminophen 1 g IV, Toradol 15 mg IV,, normal saline 1 L bolus and Zofran 4 mg IV. She was also given fentanyl 100 mcg IV x2. Patient had significant improvement with ketamine at previous hospitalization. The patient will be admitted to the ICU for ketamine IV with consult to Pain Management Dr. Hawkins. In the interim, continue her usual medications: Oxycodone, duloxetine, gabapentin, methocarbamol, fexofenadine, Tylenol, Pepcid, Protonix. Zofran 4 mg IV every 6 hours as needed Lorazepam 0.5 mg IV every 6 hours as needed Patient is scheduled for spinal cord stimulator on 03/02 Adrenal insufficiency- Continue usual dosing of fludrocortisone and hydrocortisone Hold on stress dose steroids for now Resident Activity Tracking Resident Involvement: Resident Care Provided Care Provided: Adult [facility]
[2023-02-24 05:25] LABS: Albumin Globulin Ratio 1.7 (0.9-2); Albumin Level 3.8 gm/dl (3.4-5.0); BUN Creatinine Ratio 11.1 (10-20); Bilirubin,Total 0.2 mg/dl (0.2-1.0); Calcium 8.2 mg/dl (8.6-10.3); Est GFR (African American) 129.3 ml/min; Est GFR (Non-African American) 111.6 ml/min; Globulin 2.2 gm/dl (2.5-4.0); Magnesium 1.9 mg/dl (1.7-2.4); Potassium 3.4 mmol/L (3.5-5.1)
--- NOTE | 2023-02-24 06:44 | Billing Data ---
Date of Service February 24, 2023 Coding Level of Care Code 94674 INT INP/OBS CARE
--- NOTE | 2023-02-24 08:16 | XRay Report ---
KUB HISTORY: Generalized abdominal pain. COMPARISON: KUB 12/06/2022. FINDINGS: The bowel gas pattern is unremarkable. There are no dilated loops of small bowel to suggest an obstruction. No renal calculi. No ureteral calculi. Calcifications in the deep pelvis likely rep resent phleboliths. These remain unchanged. No pneumoperitoneum or pneumatosis. A gastrojejunostomy t ube is unchanged in position. Prior cholecystectomy. The lung bases are clear. Subtle clips noted wit hin the deep pelvis. IMPRESSION: 1. Nonobstructive bowel gas pattern. 2. The gastrojejunostomy tube is unchanged in position. ACT 112: Negative or not required by law. Electronically signed by: Victor Hugo Snowden M.D. 02/24/2023 8:14 AM
[2023-02-24] MEDS ORDERED: ONDANSETRON 8MG OD TAB PO PRN (08:36)
[2023-02-24] MEDS ORDERED: SODIUM CHLORIDE 0.9% IV ONE (09:20)
[2023-02-24] MEDS ORDERED: KETAMINE HCL INJ 50 MG/ML 10 ML VIAL IV PRN (09:20)
[2023-02-24] MEDS ORDERED: KETAMINE HCL IV ONE (09:20)
[2023-02-24] MEDS: CHECK fentaNYL PATCH PLACEMENT SCH ×2 (09:21→16:07)
[2023-02-24] MEDS: ICU Protocol for HYPERglycemia SCH ×4 (09:33→20:59)
[2023-02-24] MEDS: CHOLECALCIFEROL 1,000 UNITS 25 MCG TAB PO SCH (10:59)
--- NOTE | 2023-02-24 10:59 | Critical Care Consultation ---
Date of Consultation February 24, 2023 Assessment & Plan (1) Generalized abdominal pain: Requiring ICU level monitoring per institutional guidelines with ketamine infusion for pain control -Pain management following -Hospitalist team primary (2) Chronic, continuous use of opioids: (3) Visceral hyperalgesia: (4) Intractable pain: History of Present Illness Reason for Consultation: Chronic abdominal pain requiring ketamine Attending Physician: Ramses Layne DO History of Present Illness Patient is a 33-year-old female with a history of chronic abdominal pain. She has been seen by pain management and has received a celiac plexus block previously. Per records there are attempts to possibly move towards a spinal cord stimulator versus celiac plexus ablation. Admission to the ICU under treatment plan to include ketamine infusion. Resting comfortably in bed without complaints during my evaluation mother present at the bedside. Also discussed with hospitalist team Allergies Allergy/AdvReac Type Severity Reaction Status Date / Time diphenhydramine Allergy Severe Anaphylaxis Verified 02/17/23 14:21 promethazine Allergy Severe hives, Verified 02/17/23 14:21 throat swelling adhesive Allergy Intermediate Redness of Verified 02/17/23 14:21 Skin amoxicillin Allergy Intermediate RASH Verified 02/17/23 14:21 calcium Allergy Intermediate SEE COMMENT Verified 02/17/23 14:21 [From VIACTIV Multi-Vitamin] cefazolin Allergy Intermediate rash Verified 02/17/23 14:21 Cephalosporins Allergy Intermediate HIVES Verified 02/17/23 14:21 clavulanic acid Allergy Intermediate HIVES Verified 02/17/23 14:21 ferric carboxymaltose Allergy Intermediate Rash Verified 02/17/23 14:21 [From Injectafer] folic acid Allergy Intermediate SEE COMMENT Verified 02/17/23 14:21 [From VIACTIV Multi-Vitamin] iron [From Venofer] Allergy Intermediate Muscle Pain Verified 02/17/23 14:21 multivitamin with minerals Allergy Intermediate SEE COMMENT Verified 02/17/23 14:21 [From VIACTIV Multi-Vitamin] Penicillins Allergy Intermediate HIVES Verified 02/17/23 14:21 prochlorperazine Allergy Intermediate HIVES Verified 02/17/23 14:21 sulfamethoxazole Allergy Intermediate RASH Verified 02/17/23 14:21 sumatriptan Allergy Intermediate RASH Verified 02/17/23 14:21 trimethoprim Allergy Intermediate RASH Verified 02/17/23 14:21 metoclopramide AdvReac Severe anxiety/ Verified 02/17/23 14:21 jittery morphine AdvReac Severe Severe Verified 02/17/23 14:21 abdominal Pain, sphincter of oddi spasms erythromycin base AdvReac Intermediate GI SYMPTOMS Verified 02/17/23 14:21 citalopram [From Celexa] AdvReac Unknown CAN'T Verified 02/17/23 14:21 REMEMBER Home Medications Medication Instructions Recorded Confirmed Type dicyclomine 10 mg capsule 10 - 20 mg PO Q6H PRN Abdominal 03/07/18 02/17/23 History Pain pantoprazole 40 mg tablet,delayed 40 mg PO QAM 09/08/19 02/17/23 History release (Protonix) famotidine 40 mg tablet 20 mg PO BID 11/28/19 02/17/23 History hydrocortisone 10 mg tablet 0 mg PO BID 02/07/20 02/17/23 History fexofenadine 180 mg tablet 180 mg PO PM 10/09/20 02/17/23 History fludrocortisone 0.1 mg tablet 0.1 mg PO BID 12/12/20 02/17/23 History acetaminophen 500 mg tablet 1,000 mg PO Q6H PRN Pain 06/13/21 02/17/23 History (Tylenol Extra Strength) multivitamin with minerals-folic 2 tab PO PM 06/13/21 02/17/23 History acid 200 mcg chewable tablet (Multivitamin Gummies) turmeric 400 mg capsule 400 mg PO PM 06/13/21 02/17/23 History empty container (Enema Misc Bottle) #72 ea 01/16/22 02/17/23 Rx cholecalciferol (vitamin D3) 25 50 mcg PO DAILY 04/07/22 02/17/23 History mcg (1,000 unit) capsule (Vitamin D3) duloxetine 60 mg capsule,delayed 60 mg PO DAILY 04/07/22 02/17/23 History release methocarbamol 750 mg tablet 750 mg PO TID 04/07/22 02/17/23 History coenzyme Q10 100 mg capsule 100 mg PO PM 07/22/22 02/17/23 History (CoQ-10) pyridoxine (vitamin B6) 50 mg 50 mg PO DAILY 07/22/22 02/17/23 History tablet ondansetron 8 mg disintegrating 8 mg PO TID PRN Nausea 10/06/22 02/17/23 History tablet fentanyl 75 mcg/hr transdermal 1 patch transdermal Q72H #10 ea 10/23/22 02/17/23 Rx patch lorazepam 2 mg/mL injection 0.5 mg (0.25 mL) buccal QID PRN 12/04/22 02/17/23 Rx solution (Ativan) Nausea #100 mL bethanechol chloride 25 mg tablet 12.5 mg PO BID PRN urinary 12/05/22 02/17/23 Rx retention #20 tabs gabapentin 250 mg/5 mL oral 600 mg (12 mL) PO TID #250 mL 12/05/22 02/17/23 Rx solution levothyroxine 50 mcg tablet 50 mcg PO DAILY #30 tabs 12/05/22 02/17/23 Rx (Synthroid) oxycodone 5 mg/5 mL oral solution 5 mg (5 mL) PO Q4H PRN pain #250 mL 12/05/22 02/17/23 Rx diazepam 5 mg tablet 5 mg PO .COMPLEX #3 tabs 12/23/22 02/17/23 Rx Patient History Medical History Abdominal pain Asthma Chronic migraine Chronic, continuous use of opioids Colitis Dehydration Diversion colitis DVT prophylaxis Elevated lipase Endometriosis has had 3 surgeries for this. Last surgery [address] Hemorrhagic cystitis Hypotension Intussusception Nausea Nausea and vomiting Pancreatitis PICC (peripherally inserted central catheter) in place TPN SMAS (superior mesenteric artery syndrome) History of SMAS SMAS (superior mesenteric artery syndrome) Sphincter of Oddi dysfunction DECREASED GI MOTILITY Transaminitis Uses feeding tube gastroparesis and decreased GI motility can not tolerate feeding and uses TPN UTI (urinary tract infection) Surgical History H/O adenoidectomy H/O laparoscopy H/O lumpectomy right breast 2011 History of appendectomy History of bowel resection Part of duodenum removed due to necrosis; done at [facility] 2019 History of hysterectomy 09/27/19 History of removal of Port-a-Cath 10/13/[address] Geiger, [facility], due to bacteremia/sepsis. History of vascular access device 2018 Hx of colonoscopy during procedure perforated small bowel 10/27/2019 at [facility], subsequent repair of duodenal area. Hx of ileostomy Hx of tonsillectomy S/P cholecystectomy 2015 S/P wrist surgery right Family History Father Hyperlipidemia Other No significant family history Social History Smoking Status: Never smoker Second Hand Exposure: No; Do You Dip or Chew Tobacco: No; Hx Alcohol Use: No Hx Substance Use: No Preferred Language: Japanese Communication Ability: Effective Visual Impairment: No Limitations Hearing Ability: Normal [employer] Project [employer] Required: No Beliefs That Will Affect Care: None marital status: Single Current Living Situation: Parent Current Living Situation Comment: Lives with family. current occupational status: unemployed current occupation: completed 4-year degree at [employer] How many Children do You have: 0 Feels Safe at Home: Yes Diet: regular Sexual Activity Comment: not sexually active Assistive Devices: Brace/Splint/Immobilizer and Glasses Physical Exam Physical Exam: General: Alert. nontoxic. Skin: Warm, dry, Head: Atraumatic Ears, nose, mouth and throat: airway patent Cardiovascular: Normal peripheral perfusion Respiratory: no respiratory distress Gastrointestinal: Non distended Musculoskeletal: No deformity Results & Data Results & Data Vital Signs (Past 12 Hours) Vital Signs Temp Pulse Resp BP BP Pulse Ox Pulse Ox 02/24/23 09:30 72 17 96 02/24/23 09:04 84 14 98/70 L 96 02/24/23 09:52 95 02/24/23 09:52 74 02/24/23 08:25 36.9 C 18 120/75 98 02/24/23 07:30 106/74 02/24/23 07:30 69 15 98 02/24/23 07:00 60 22 97/65 L 97 02/24/23 06:30 107/81 02/24/23 06:01 73 15 124/87 97 02/24/23 05:30 90 13 118/89 95 02/24/23 05:01 80 24 117/87 97 02/24/23 04:33 128 H 27 H 124/92 02/24/23 04:30 101 H 13 95 02/24/23 03:55 96 H 02/24/23 03:47 36.7 C 98 H 19 115/90 97 O2 Del Method O2 Del Method 02/24/23 09:30 02/24/23 09:04 02/24/23 09:52 Room Air 02/24/23 09:52 02/24/23 08:25 Room Air 02/24/23 07:30 02/24/23 07:30 Room Air 02/24/23 07:00 Room Air 02/24/23 06:30 02/24/23 06:01 Room Air 02/24/23 05:30 Room Air 02/24/23 05:01 Room Air 02/24/23 04:33 02/24/23 04:30 Room Air 02/24/23 03:55 02/24/23 03:47 Room Air Critical Care Results & Data Vital Signs (Past 12 Hours) Vital Signs Temp Pulse Resp BP BP Pulse Ox Pulse Ox 02/24/23 09:30 72 17 96 02/24/23 09:04 84 14 98/70 L 96 02/24/23 09:52 95 02/24/23 09:52 74 02/24/23 08:25 36.9 C 18 120/75 98 02/24/23 07:30 106/74 02/24/23 07:30 69 15 98 02/24/23 07:00 60 22 97/65 L 97 02/24/23 06:30 107/81 02/24/23 06:01 73 15 124/87 97 02/24/23 05:30 90 13 118/89 95 02/24/23 05:01 80 24 117/87 97 02/24/23 04:33 128 H 27 H 124/92 02/24/23 04:30 101 H 13 95 02/24/23 03:55 96 H 02/24/23 03:47 36.7 C 98 H 19 115/90 97 O2 Del Method O2 Del Method 02/24/23 09:30 02/24/23 09:04 02/24/23 09:52 Room Air 02/24/23 09:52 02/24/23 08:25 Room Air 02/24/23 07:30 02/24/23 07:30 Room Air 02/24/23 07:00 Room Air 02/24/23 06:30 02/24/23 06:01 Room Air 02/24/23 05:30 Room Air 02/24/23 05:01 Room Air 02/24/23 04:33 02/24/23 04:30 Room Air 02/24/23 03:55 02/24/23 03:47 Room Air Lab & Micro Results (Past 24 Hours) RBC 3.91 M/uL (4.20-5.40) L 02/24/23 WBC 6.52 K/ul (4.8-10.8) 02/24/23 Hgb 11.6 g/dl (12.0-16.0) L 02/24/23 Hct 35.4 % (37.0-47.0) L 02/24/23 MCV 90.5 fL (80.0-100.0) 02/24/23 MCH 29.7 pg (25.0-34.0) 02/24/23 MCHC 32.8 g/dL (32.0-36.0) 02/24/23 RDW Standard Deviation 42.8 fL (36.4-46.3) 02/24/23 RDW Coefficient of Variation 12.9 % (11.5-14.5) 02/24/23 Plt Count 298 K/uL (130-400) 02/24/23 MPV 10.1 fL (9.4-12.4) 02/24/23 Neutrophils (%) (Auto) 58.8 % 02/24/23 Lymphocytes (%) (Auto) 29.3 % 02/24/23 Monocytes # (Auto) 0.62 K/uL (0.11-0.59) H 02/24/23 Eosinophils # (Auto) 0.10 K/uL (0.00-0.50) 02/24/23 Immature Granulocyte % (Auto) 0.3 % 02/24/23 Neutrophils # (Auto) 3.83 K/uL (1.40-6.50) 02/24/23 Lymphocytes # (Auto) 1.91 K/uL (1.20-3.40) 02/24/23 Monocytes # (Auto) 0.62 K/uL (0.11-0.59) H 02/24/23 Eosinophils # (Auto) 0.10 K/uL (0.00-0.50) 02/24/23 Basophils # (Auto) 0.04 K/uL (0.00-0.20) 02/24/23 Immature Granulocyte # (Auto) 0.02 K/uL (0.01-0.20) 3 Na 139 mmol/L (136-145) 02/24/23 K 3.4 mmol/L (3.5-5.1) L 02/24/23 Cl 106 mmol/L (98-107) 02/24/23 CO2 29 mmol/L (21-32) 02/24/23 Anion Gap 4 (3-11) 02/24/23 BUN 8 mg/dl (6-23) 02/24/23 Creatinine 0.72 mg/dl (0.6-1.2) 02/24/23 Estimated GFR ( Amer) 129.3 ml/min 02/24/23 Estimated GFR (Non-Af Amer) 111.6 ml/min 02/24/23 BUN/Creatinine Ratio 11.1 (10-20) 02/24/23 Glu 91 mg/dl (70-99(Fasting)) 02/24/23 Ca 8.2 mg/dl (8.6-10.3) L 02/24/23 Phosphorus Level 3.9 mg/dl (2.5-4.9) 02/24/23 Total Bilirubin 0.2 mg/dl (0.2-1.0) 02/24/23 AST 14 U/L (13-39) 02/24/23 ALT 8 U/L (7-52) 02/24/23 Alkaline Phosphatase 71 U/L (34-104) 02/24/23 TP 6.0 gm/dl (6.0-8.3) 02/24/23 Albumin 3.8 gm/dl (3.4-5.0) 02/24/23 Globulin 2.2 gm/dl (2.5-4.0) L 02/24/23 Albumin/Globulin Ratio 1.7 (0.9-2) 02/24/23 Mg 1.9 mg/dl (1.7-2.4) 02/24/23 04:46 Calcium Level 8.2 mg/dl (8.6-10.3) L 02/24/23 04:46 Diagnostic Findings (Past 24 Hours) KUB X-Ray 02/24/23 03:59 KUB HISTORY: Generalized abdominal pain. COMPARISON: KUB 12/06/2022. FINDINGS: The bowel gas pattern is unremarkable. There are no dilated loops of small bowel to suggest an obstruction. No renal calculi. No ureteral calculi. Calcifications in the deep pelvis likely represent phleboliths. These remain unchanged. No pneumoperitoneum or pneumatosis. A gastrojejunostomy tube is unchanged in position. Prior cholecystectomy. The lung bases are clear. Subtle clips noted within the deep pelvis. IMPRESSION: 1. Nonobstructive bowel gas pattern. 2. The gastrojejunostomy tube is unchanged in position. ACT 112: Negative or not required by law. Electronically signed by: Victor Hugo Snowden M.D. 02/24/2023 8:14 AM I & O Totals 24 Hours 02/23/23 02/24/23 02/25/23 06:59 06:59 06:59 Intake Total 1100 / 1100 Balance 1100 / 1100 Cumulative 02/24/23 03:37 thru 02/24/23 09:51 Intake Total 1100 Balance 1100 RT Ventilator Mngmt (Last Documented) Ventilator Ordered Settings Respiratory Rate 17 02/24/23 09:30 Ventilator - PT Measurements Respiratory Rate 17 Coding Level of Care Code 63351 IN/OBS CONSULT LVL 2,35M Diagnoses Generalized abdominal pain R10.84 Chronic, continuous use of opioids F11.90 Visceral hyperalgesia R19.8 Intractable pain R52
[2023-02-24] MEDS: GABAPENTIN 250 MG/5 ML 470 ML BTL PO SCH ×3 (11:00→20:31)
[2023-02-24] MEDS: METHOCARBAMOL 750 MG TABLET PO SCH ×3 (11:00→20:31)
[2023-02-24] MEDS: HYDROCORTISONE 10 MG TAB PO SCH ×2 (11:00→14:43)
[2023-02-24] MEDS: FAMOTIDINE 20 MG TAB PO SCH ×2 (11:00→20:31)
[2023-02-24] MEDS: FLUDROCORTISONE ACETATE 0.1 MG TAB PO SCH ×3 (11:00→20:31)
[2023-02-24] MEDS: DULoxetine HCL 60 MG CAP PO SCH ×2 (11:00→14:45)
[2023-02-24] MEDS: LEVOTHYROXINE SODIUM 50 MCG TABLET PO SCH ×2 (11:00→14:45)
[2023-02-24] MEDS: PANTOprazole 40 MG TAB PO SCH (11:00)
[2023-02-24] MEDS: PYRIDOXINE HCL 50 MG TAB PO SCH (11:00)
[2023-02-24] MEDS ORDERED: TPN/PPN CONSULT PHARMACY PRN (13:47)
[2023-02-24 14:14] LABS: Phosphorus 3.9 mg/dl (2.5-4.9)
[2023-02-24] MEDS: oxyCODONE HCL SOLN 5 MG/5 ML UDC PO PRN ×2 (14:53→20:31)
[2023-02-24] MEDS: BETHANECHOL CHL 25 MG TAB PO PRN (14:54)
[2023-02-24] MEDS: LORazepam 2 MG/1 ML VIAL IV PRN ×2 (14:54→22:20)
[2023-02-24] MEDS: KETAMINE HCL IV PRN ×2 (16:39→21:10)
[2023-02-24] MEDS: SODIUM CHLORIDE 0.9% IV PRN ×2 (16:39→21:10)
[2023-02-24] MEDS: LACTATED RINGER'S 1,000 ML IV SCH (17:16)
[2023-02-24] MEDS ORDERED: HYDROmorphone INJ 0.5 MG/0.5 ML SYR IV PRN (17:43)
--- NOTE | 2023-02-24 17:53 | Hospitalist Progress Note ---
Date of Service February 24, 2023 Assessment & Plan (1) Intractable pain: (2) Visceral hyperalgesia: (3) Chronic, continuous use of opioids: (4) SMAS (superior mesenteric artery syndrome): (5) Uses feeding tube: Plan This is a 33yo Female with PMH complicated past medical history to include non- epileptic seizures, adrenal insufficiency and extensive GI history to include SMA syndrome, multiple GI surgeries with chronic, intractable abdominal pain, gastroparesis and dysmotility. She has an ostomy in place as well as a gastric tube for venting. She also receives TPN as well as night time IVF at home.Patient came to ED for concern uncontrollable abd pain. Abd Pain acute on chronic Plan for ketamine infusion in ICU Consult with pain management to consider repeat nerve block Plan for adrenal stimulator Port inflammation Assess cultures of L port in place, attempt to infuse at this site Plan for fluid administration tonight Adrenal Insufficiency -continue home fludrocortisone, hydrocortisone Hypothyroidism -continue home levothyroxine FENa: regular Code Status: Full DVT PPX: SCDs PT/OT: consider if extended hospitalization Dispo: ICU for ketamine Admission and Anticipated Discharge Date Admission Date: February 24, 2023 Supervising Physician Co-Signing Physician Notes I personally examined the patient and verified all solorzano points of history and exam, discussed case, and agree with decision making with Dr Carty Ketamine helped a good bit for several hours, pain coming back some. Also a little bit concerned about her left sided portshe notes a few weeks ago there was a little bit of a yellow somewhat exudative drainage, she had it deaccessed and has not used it since so she is not sure if it is functional or not. She had some irritation around it although not necessarily overt pain there was no tracking erythema. Vitals noted, in general she appears fatigued mild pain distressbut compared to times of seen her before, certainly not as severe as in the past. Her left upper chest wall port site has a little bit of a thin reddish-purple hue above the access point it is minimally tender no crepitus there is no exudate able to be expressed there is no tracking erythema. Visceral hyperalgesiaacute flareupseems to be improving on ketamine. Continue as needed. Asked pain management to see in regards to either nerve block, possibly moving up the placement of her trial spinal cord stimulator if possible, or other suggestions on her acute management. Port site irritationgiven that she did have a degree of exudate, checking a culture from her port and a peripheral culture and asking the surgeon who placed it to evaluate. At the same time I have a fairly low suspicion of truly an infection, and if the cultures are negative and surgical evaluation is of low concern as well, I will give trial of utilizing the port. Otherwise as above Subjective 33F well known to our service admitted with intractable pain. Has been on ketamine therapy in the past. Admitted to ICU for ketamine administration. Plan for spinal stimulator next week. Pt also complaining of swelling and pain in her L port. Endorses global pain localized to the abdomen, nausea. Review of Systems Review of Systems: reviewed, per HPI Physical Exam Physical Exam: General: Obvious discomfort, AA&O x 4, answers questions appropriately and follows commands. Skin: warm, dry, intact HEENT: NC/AT, anicteric sclera, conjunctiva without injection, moist mucus membranes, trachea midline, no thyromegaly, no JVD Heart: well perfused Lungs: no increased work of breathing Abd: +BS, soft, TTP, JG tube in place, ostomy in place Ext: warm, no clubbing/cyanosis or edema Neuro: nonfocal, patient AA&O x 4, speech intact, no facial droop, moving all extremities on command. Results & Data Results & Data Vital Signs (Past 12 Hours) Vital Signs Temp Pulse Resp BP BP Pulse Ox Pulse Ox 02/24/23 16:00 113 H 6 L 94 02/24/23 16:00 101/77 02/24/23 15:01 107 H 9 L 90 02/24/23 15:01 106/77 02/24/23 15:00 104 H 9 L 94 02/24/23 14:00 79 14 95 02/24/23 14:00 104/69 02/24/23 13:00 81 11 L 96 02/24/23 13:00 98/73 L 02/24/23 12:00 69 14 98 02/24/23 12:00 94/63 L 02/24/23 11:00 79 19 95 02/24/23 11:00 112/69 02/24/23 10:00 66 13 97 02/24/23 10:00 103/69 02/24/23 16:34 82 02/24/23 12:00 96 02/24/23 09:30 72 17 96 02/24/23 09:04 84 14 98/70 L 96 02/24/23 09:52 95 02/24/23 09:52 74 02/24/23 08:25 36.9 C 18 120/75 98 02/24/23 07:30 106/74 02/24/23 07:30 69 15 98 02/24/23 07:00 60 22 97/65 L 97 02/24/23 06:30 107/81 02/24/23 06:01 73 15 124/87 97 O2 Del Method O2 Del Method 02/24/23 16:00 Room Air 02/24/23 16:00 02/24/23 15:01 02/24/23 15:01 02/24/23 15:00 Room Air 02/24/23 14:00 02/24/23 14:00 02/24/23 13:00 02/24/23 13:00 02/24/23 12:00 02/24/23 12:00 02/24/23 11:00 02/24/23 11:00 02/24/23 10:00 02/24/23 10:00 02/24/23 16:34 02/24/23 12:00 Room Air 02/24/23 09:30 02/24/23 09:04 02/24/23 09:52 Room Air 02/24/23 09:52 02/24/23 08:25 Room Air 02/24/23 07:30 02/24/23 07:30 Room Air 02/24/23 07:00 Room Air 02/24/23 06:30 02/24/23 06:01 Room Air Resident Activity Tracking Resident Involvement: Resident Care Provided Care Provided: Adult Hospital Medicine
[2023-02-24] MEDS: FEXOFENADINE HCL 180 MG TAB PO SCH (20:30)
[2023-02-24] MEDS: ONDANSETRON INJ 2 MG/ML 2 ML VIAL IV PRN (20:31)
[2023-02-24] MEDS: CEROVITE ADV FORMULA TAB PO SCH (20:31)
--- NOTE | 2023-02-24 20:44 | Surgery Consultation ---
Date of Consultation February 24, 2023 Assessment & Plan (1) Difficult intravenous access: Plan Currently has a working right internal jugular vein port with evidence of skin thinning over the left port. The port hub happens to be right below the incision which again is healed with unhealthy scar tissue with poor integrity. Of note the patient does have an upcoming procedure on Thursday to have a nerve stimulator placed. I explained to the patient that these port access sites are very valuable and we typically try not to remove these ports unless absolutely necessary especially in a patient who continues to rely on that access. There is no elizabeth evidence of infection at the port site and the patient is not septic, but because she has an upcoming surgical procedure planned on Thursday to implant a foreign body it may be a beneficial to obtain blood cultures to be sure that her discomfort is not secondary to early, low-grade infection and not just the mechanical skin irritation. This will be discussed further in the a.m. with the operating surgeon. At the same time right now the integrity of the skin needs to be supported as again the skin is not yet compromised and the port is not exposed. For now I would keep this area covered with dry gauze to avoid any abrasive c ontact over the area. I will follow-up in the a.m. to discuss final plans with the ICU team. History of Present Illness Attending Physician: Ramses Layne DO History of Present Illness Pilar is a 33-year-old female with complicated past medical history to include non-epileptic seizures, adrenal insufficiency, extensive GI history to include SMA syndrome, multiple GI surgeries, chronic intractable abdominal pain, well-known to pain clinic, gastroparesis and dysmotility. She receives TPN at night time IVF at home.Patient came to ED for concern uncontrollable abd pain. She has been admitted to the ICU and her severe pain seems to be resolved after medical management. The patient has bilateral ports originally a right IJ MediPort was inserted. This had stopped functioning at some point and was replaced back in May 2022. In October 2022 the port was noted to fail to aspirate. A second port was then placed in the left IJ at that time. On this admission the patient had complained of discomfort at the left port site for which a surgical consultation was called for further evaluation. The patient explains that she notes a small amount of soreness at the area without swelling. Her mother notes that there are some changes to the appearance of the port. The patient and her mother deny drainage from the area or noting discharge. This port was last accessed about 3 weeks ago and used at that time without any issues with the function of the port. The port has not been accessed in the past few weeks because the patient has started to note some changes involving the area so they have been reluctant to have it accessed. In the meantime the original right port that was placed that had previously not been aspirating is now fully functioning, aspirating blood as well as flushing and is currently in use. Allergies Allergy/AdvReac Type Severity Reaction Status Date / Time diphenhydramine Allergy Severe Anaphylaxis Verified 02/17/23 14:21 promethazine Allergy Severe hives, Verified 02/17/23 14:21 throat swelling adhesive Allergy Intermediate Redness of Verified 02/17/23 14:21 Skin amoxicillin Allergy Intermediate RASH Verified 02/17/23 14:21 calcium Allergy Intermediate SEE COMMENT Verified 02/17/23 14:21 [From VIACTIV Multi-Vitamin] cefazolin Allergy Intermediate rash Verified 02/17/23 14:21 Cephalosporins Allergy Intermediate HIVES Verified 02/17/23 14:21 clavulanic acid Allergy Intermediate HIVES Verified 02/17/23 14:21 ferric carboxymaltose Allergy Intermediate Rash Verified 02/17/23 14:21 [From Injectafer] folic acid Allergy Intermediate SEE COMMENT Verified 02/17/23 14:21 [From VIACTIV Multi-Vitamin] iron [From Venofer] Allergy Intermediate Muscle Pain Verified 02/17/23 14:21 multivitamin with minerals Allergy Intermediate SEE COMMENT Verified 02/17/23 14:21 [From VIACTIV Multi-Vitamin] Penicillins Allergy Intermediate HIVES Verified 02/17/23 14:21 prochlorperazine Allergy Intermediate HIVES Verified 02/17/23 14:21 sulfamethoxazole Allergy Intermediate RASH Verified 02/17/23 14:21 sumatriptan Allergy Intermediate RASH Verified 02/17/23 14:21 trimethoprim Allergy Intermediate RASH Verified 02/17/23 14:21 metoclopramide AdvReac Severe anxiety/ Verified 02/17/23 14:21 jittery morphine AdvReac Severe Severe Verified 02/17/23 14:21 abdominal Pain, sphincter of oddi spasms erythromycin base AdvReac Intermediate GI SYMPTOMS Verified 02/17/23 14:21 citalopram [From Celexa] AdvReac Unknown CAN'T Verified 02/17/23 14:21 REMEMBER Home Medications Medication Instructions Recorded Confirmed Type dicyclomine 10 mg capsule 10 - 20 mg PO Q6H PRN Abdominal 03/07/18 02/17/23 History Pain pantoprazole 40 mg tablet,delayed 40 mg PO QAM 09/08/19 02/17/23 History release (Protonix) famotidine 40 mg tablet 20 mg PO BID 11/28/19 02/17/23 History hydrocortisone 10 mg tablet 0 mg PO BID 02/07/20 02/17/23 History fexofenadine 180 mg tablet 180 mg PO PM 10/09/20 02/17/23 History fludrocortisone 0.1 mg tablet 0.1 mg PO BID 12/12/20 02/17/23 History acetaminophen 500 mg tablet 1,000 mg PO Q6H PRN Pain 06/13/21 02/17/23 History (Tylenol Extra Strength) multivitamin with minerals-folic 2 tab PO PM 06/13/21 02/17/23 History acid 200 mcg chewable tablet (Multivitamin Gummies) turmeric 400 mg capsule 400 mg PO PM 06/13/21 02/17/23 History empty container (Enema Misc Bottle) #72 ea 01/16/22 02/17/23 Rx cholecalciferol (vitamin D3) 25 50 mcg PO DAILY 04/07/22 02/17/23 History mcg (1,000 unit) capsule (Vitamin D3) duloxetine 60 mg capsule,delayed 60 mg PO DAILY 04/07/22 02/17/23 History release methocarbamol 750 mg tablet 750 mg PO TID 04/07/22 02/17/23 History coenzyme Q10 100 mg capsule 100 mg PO PM 07/22/22 02/17/23 History (CoQ-10) pyridoxine (vitamin B6) 50 mg 50 mg PO DAILY 07/22/22 02/17/23 History tablet ondansetron 8 mg disintegrating 8 mg PO TID PRN Nausea 10/06/22 02/17/23 History tablet fentanyl 75 mcg/hr transdermal 1 patch transdermal Q72H #10 ea 10/23/22 02/17/23 Rx patch lorazepam 2 mg/mL injection 0.5 mg (0.25 mL) buccal QID PRN 12/04/22 02/17/23 Rx solution (Ativan) Nausea #100 mL bethanechol chloride 25 mg tablet 12.5 mg PO BID PRN urinary 12/05/22 02/17/23 Rx retention #20 tabs gabapentin 250 mg/5 mL oral 600 mg (12 mL) PO TID #250 mL 12/05/22 02/17/23 Rx solution levothyroxine 50 mcg tablet 50 mcg PO DAILY #30 tabs 12/05/22 02/17/23 Rx (Synthroid) oxycodone 5 mg/5 mL oral solution 5 mg (5 mL) PO Q4H PRN pain #250 mL 12/05/22 02/17/23 Rx diazepam 5 mg tablet 5 mg PO .COMPLEX #3 tabs 12/23/22 02/17/23 Rx Patient History Medical History Abdominal pain Asthma Chronic migraine Chronic, continuous use of opioids Colitis Dehydration Diversion colitis DVT prophylaxis Elevated lipase Endometriosis has had 3 surgeries for this. Last surgery [address] Hemorrhagic cystitis Hypotension Intussusception Nausea Nausea and vomiting Pancreatitis PICC (peripherally inserted central catheter) in place TPN SMAS (superior mesenteric artery syndrome) History of SMAS SMAS (superior mesenteric artery syndrome) Sphincter of Oddi dysfunction DECREASED GI MOTILITY Transaminitis Uses feeding tube gastroparesis and decreased GI motility can not tolerate feeding and uses TPN UTI (urinary tract infection) Surgical History H/O adenoidectomy H/O laparoscopy H/O lumpectomy right breast 2011 History of appendectomy History of bowel resection Part of duodenum removed due to necrosis; done at [facility] 2019 History of hysterectomy 09/27/19 History of removal of Port-a-Cath 10/13/[address] Geiger, [facility], due to bacteremia/sepsis. History of vascular access device 2018 Hx of colonoscopy during procedure perforated small bowel 10/27/2019 at [facility], subsequent repair of duodenal area. 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 current occupational status: unemployed current occupation: completed 4-year degree at [employer] How many Children do You have: 0 Feels Safe at Home: Yes Diet: regular Sexual Activity Comment: not sexually active Assistive Devices: Brace/Splint/Immobilizer and Glasses Physical Exam Constitutional: + thin; no altered mental status, not in distress and not diaphoretic Respiratory: normal respiratory effort; no respiratory distress, no labored breathing and does not use accessory muscles Chest (Breasts): Additional Comments: Bilateral ports in place. The right port is currently in use covered by dressings. No evidence of erythema or swelling around the area. The left port is without a bandage. There appears to be an unhealthy the slightly keloid scar that has developed along the incision site. The patient and her mother state that this has been the appearance of the scar since it healed after it was placed. At the medial aspect of the heavy, unhealthy scar tissue there is a faintly bluish hue present. When queried the patient's mother admits that this is a change and that this was not previously present. Upon palpation of this area generally it is sore. It is also evident that this hue present at the medial aspect of the scar is actually the nodules on the port that are there to help locate the diaphragm for access. The skin is not broken as of yet and remains intact. Neurologic: moves all extremities and awake; no focal motor deficits and not confused Results & Data Vital Signs (Past 12 Hours) Vital Signs Pulse Resp BP Pulse Ox Pulse Ox O2 Del Method O2 Del Method 02/24/23 18:00 83 11 L 97 02/24/23 18:00 103/64 02/24/23 17:00 78 10 L 95 02/24/23 17:00 103/69 02/24/23 16:00 113 H 6 L 94 Room Air 02/24/23 16:00 101/77 02/24/23 15:01 107 H 9 L 90 02/24/23 15:01 106/77 02/24/23 15:00 104 H 9 L 94 Room Air 02/24/23 14:00 79 14 95 02/24/23 14:00 104/69 02/24/23 13:00 81 11 L 96 02/24/23 13:00 98/73 L 02/24/23 12:00 69 14 98 02/24/23 12:00 94/63 L 02/24/23 11:00 79 19 95 02/24/23 11:00 112/69 02/24/23 10:00 66 13 97 02/24/23 10:00 103/69 02/24/23 16:34 82 02/24/23 12:00 96 Room Air 02/24/23 09:30 72 17 96 02/24/23 09:04 84 14 98/70 L 96 02/24/23 09:52 95 Room Air 02/24/23 09:52 74 PG Care Time/CCT Total # of Minutes Spent Total Time Spent with Patient: Total time spent is greater than 50% in coordination of care (as documented) at patient's floor/unit and/or counseling patient: Coding Level of Care Code 55635 IN/OBS CONSULT LVL 2,35M Diagnoses Difficult intravenous access Z78.9
[2023-02-24] MEDS ORDERED: NON-FORMULARY MEDICATION (Coenzyme Q10 [Coq-10] 100 mg capsule) PO SCH (21:00)
[2023-02-24] MEDS: ACETAMINOPHEN 500 MG TAB PO PRN (22:11)
[2023-02-24] MEDS ORDERED: DICYCLOMINE HCL 10 MG CAP PO ONE (22:18)
[2023-02-25] MEDS: KETAMINE HCL IV PRN ×6 (00:51→23:40)
[2023-02-25] MEDS: SODIUM CHLORIDE 0.9% IV PRN ×6 (00:51→23:40)
[2023-02-25] MEDS: CHECK fentaNYL PATCH PLACEMENT SCH ×4 (00:52→23:41)
[2023-02-25] MEDS: LACTATED RINGER'S 1,000 ML IV SCH ×4 (01:06→21:24)
[2023-02-25] MEDS: oxyCODONE HCL SOLN 5 MG/5 ML UDC PO PRN ×5 (03:23→21:27)
[2023-02-25 04:26] LABS: Basophils # (auto) 0.03 K/uL (0.00-0.20); Basophils % (auto) 0.5 %; Eosinophils # (auto) 0.14 K/uL (0.00-0.50); Eosinophils % (auto) 2.5 %; Hematocrit (blood only) 33.3 % (37.0-47.0); Hemoglobin 11.1 g/dl (12.0-16.0); Immature Granulocytes # (auto) 0.01 K/uL (0.01-0.20); Immature Granulocytes % (auto) 0.2 %; Lymphocytes # (auto) 1.64 K/uL (1.20-3.40); Lymphocytes % (auto) 29.2 %; Mean Corpuscular Hemoglobin 30.2 pg (25.0-34.0); Mean Corpuscular Hgb Conc 33.3 g/dL (32.0-36.0); Mean Corpuscular Volume 90.7 fL (80.0-100.0); Mean Platelet Volume 10.1 fL (9.4-12.4); Monocytes # (auto) 0.54 K/uL (0.11-0.59); Monocytes % (auto) 9.6 %; Neutrophils # (auto) 3.25 K/uL (1.40-6.50); Platelet Count 278 K/uL (130-400); RDW Coefficient of Variation 12.7 % (11.5-14.5); RDW Standard Deviation 42.2 fL (36.4-46.3); Red Blood Count 3.67 M/uL (4.20-5.40); White Blood Count 5.61 K/ul (4.8-10.8)
[2023-02-25 04:39] LABS: BUN Creatinine Ratio 8.2 (10-20); Calcium 8.1 mg/dl (8.6-10.3); Creatinine Clr Calc Pharmacy 125.1 ml/min; Est GFR (Non-African American) 120.8 ml/min; Magnesium 1.8 mg/dl (1.7-2.4); Phosphorus 4.2 mg/dl (2.5-4.9); Potassium 3.4 mmol/L (3.5-5.1)
[2023-02-25] MEDS: LORazepam 2 MG/1 ML VIAL IV PRN ×4 (05:09→23:41)
[2023-02-25] MEDS: LEVOTHYROXINE SODIUM 50 MCG TABLET PO SCH (05:30)
[2023-02-25] MEDS ORDERED: POTASSIUM CHLORIDE 20 MEQ/15 ML UDC PO STA (06:06)
--- NOTE | 2023-02-25 06:42 | Hospitalist Progress Note ---
Date of Service February 25, 2023 Assessment & Plan (1) Intractable pain: (2) Visceral hyperalgesia: (3) Chronic, continuous use of opioids: (4) SMAS (superior mesenteric artery syndrome): (5) Uses feeding tube: Plan This is a 33yo Female with PMH complicated past medical history to include non- epileptic seizures, adrenal insufficiency and extensive GI history to include SMA syndrome, multiple GI surgeries with chronic, intractable abdominal pain, gastroparesis and dysmotility. She has an ostomy in place as well as a gastric tube for venting. She also receives TPN as well as night time IVF at home.Patient came to ED for concern uncontrollable abd pain. #Acute on Chronic Abdominal Pain Plan for ketamine infusion in ICU Consult with pain management to consider repeat nerve block Plan for spinal stimulator. Will have to be done as outpatient. Procedure scheduled for Thursday. #Port inflammation Surgery examined, not felt to be grossly infected. f/u blood cultures, if negative attempt to flush Plan for fluid administration tonight, reevaluate for TPN tomorrow #Adrenal Insufficiency continue home fludrocortisone, hydrocortisone #Hypothyroidism continue home levothyroxine FENa: regular Code Status: Full DVT PPX: SCDs PT/OT: consider if extended hospitalization Dispo: ICU for ketamine Admission and Anticipated Discharge Date Admission Date: February 24, 2023 Supervising Physician Co-Signing Physician Notes I personally examined the patient and verified all solorzano points of history and exam, discussed case, and agree with decision making with Dr Carty feeling some worse pain today. thinks maybe she just fell behind some and hasn't caught back up. nothign new or different just worse. pseudoseizures not as ssever as previously though and ovearll less. surgery input re port greatly appreciated vitals noted doubled over in pain heent nc at mmm breathing unlabored. has one short pseudoseizure not nearly as long as prior not nearly as convulsive as piror (?1minute total whole body shaking but fairly contained, HR peak ~130) Visceral hyperalgesiaacute flareupContinue current plancontinue supportive care Port site irritationFortunately no clear signs or symptoms of infection, unfortunately it does seem that there is a little bit of tissue breakdown. Obviously no emergency at this point time. Given how close she is to her spinal cord stimulator trial, she would prefer to hold off on any action on the porch that might interfere with getting her stimulator placed. She does have the working port on the opposite side, so IV access, well a little bit difficult working around her TPN, is not a huge deal at this point. Otherwise as above Subjective 33F well known to our service admitted with intractable pain. Has been on ketamine therapy in the past. Admitted to ICU for ketamine administration. Plan for spinal stimulator next week. Pt also complaining of swelling and pain in her L port. Endorses global pain localized to the abdomen, nausea. Review of Systems Review of Systems: reviewed, per HPI Physical Exam Physical Exam: General: Obvious discomfort, AA&O x 4, answers questions appropriately and follows commands. Skin: warm, dry, intact HEENT: NC/AT, anicteric sclera, conjunctiva without injection, moist mucus membranes, trachea midline, no thyromegaly, no JVD Heart: well perfused Lungs: no increased work of breathing Abd: +BS, soft, TTP, JG tube in place, ostomy in place Ext: warm, no clubbing/cyanosis or edema Neuro: nonfocal, patient AA&O x 4, speech intact, no facial droop, moving all extremities on command. Results & Data Results & Data Vital Signs (Past 12 Hours) Vital Signs Temp Pulse Resp BP Pulse Ox 02/25/23 05:00 71 13 94 02/25/23 05:00 105/65 02/25/23 04:00 68 11 L 96 02/25/23 04:00 36.6 C 105/65 02/25/23 03:00 70 16 94 02/25/23 03:00 107/69 02/25/23 02:00 68 16 95 02/25/23 02:00 100/76 02/25/23 01:00 83 11 L 95 02/25/23 01:00 101/75 02/25/23 00:00 36.5 C 74 17 95 02/25/23 00:00 103/67 02/25/23 00:00 77 02/24/23 23:00 84 13 97 02/24/23 23:00 106/67 02/24/23 22:05 97 H 6 L 96 02/24/23 22:05 119/76 02/24/23 22:00 74 12 94 02/24/23 21:00 96 H 16 95 02/24/23 21:00 121/82 02/24/23 20:00 36.5 C 79 6 L 96 02/24/23 20:00 107/78 02/24/23 19:00 84 14 94 02/24/23 19:00 108/69 Resident Activity Tracking Resident Involvement: Resident Care Provided Care Provided: Adult [facility] Medicine
[2023-02-25] MEDS: MAGNESIUM SULFATE / D5W 1 GM/100 ML BAG IV SCH ×2 (07:27→09:27)
[2023-02-25] MEDS: FLUDROCORTISONE ACETATE 0.1 MG TAB PO SCH ×2 (07:28→21:25)
[2023-02-25] MEDS: FAMOTIDINE 20 MG TAB PO SCH ×2 (07:28→21:26)
[2023-02-25] MEDS: HYDROCORTISONE 10 MG TAB PO SCH ×2 (07:29→16:29)
[2023-02-25] MEDS: METHOCARBAMOL 750 MG TABLET PO SCH ×3 (07:30→21:25)
[2023-02-25] MEDS: PANTOprazole 40 MG TAB PO SCH (07:30)
[2023-02-25] MEDS: PYRIDOXINE HCL 50 MG TAB PO SCH (07:30)
[2023-02-25] MEDS: CHOLECALCIFEROL 1,000 UNITS 25 MCG TAB PO SCH (07:30)
[2023-02-25] MEDS: ICU Protocol for HYPERglycemia SCH ×4 (07:31→21:26)
[2023-02-25] MEDS: DULoxetine HCL 60 MG CAP PO SCH (07:31)
[2023-02-25] MEDS: GABAPENTIN 250 MG/5 ML 470 ML BTL PO SCH ×3 (07:37→21:26)
[2023-02-25] MEDS: ONDANSETRON INJ 2 MG/ML 2 ML VIAL IV PRN ×2 (07:37→21:27)
[2023-02-25] MEDS: BETHANECHOL CHL 25 MG TAB PO PRN (07:50)
[2023-02-25] MEDS: fentaNYL 75 MCG/HR TDSY TD SCH (08:20)
--- NOTE | 2023-02-25 08:53 | Critical Care Progress Note ---
Date of Service February 25, 2023 Assessment & Plan (1) Generalized abdominal pain: Plan: Requiring ICU level monitoring per institutional guidelines with ketamine infusion for pain control -Pain management following -Hospitalist team primary (2) Chronic, continuous use of opioids: (3) Visceral hyperalgesia: (4) Intractable pain: Admission and Anticipated Discharge Date Admission Date: February 24, 2023 Subjective No overnight events. Resting comfortably in the room no complaints at present time. Physical Exam Physical Exam: General: Alert. nontoxic. Skin: Warm, dry, Head: Atraumatic Ears, nose, mouth and throat: airway patent Cardiovascular: Normal peripheral perfusion Respiratory: no respiratory distress Gastrointestinal: Non distended Musculoskeletal: No deformity Results & Data Results & Data Vital Signs (Past 12 Hours) Vital Signs Temp Pulse Resp BP Pulse Ox 02/25/23 08:00 71 8 L 95 02/25/23 08:00 123/88 02/25/23 07:00 79 13 94 02/25/23 07:00 102/72 02/25/23 08:00 72 02/25/23 05:00 71 13 94 02/25/23 05:00 105/65 02/25/23 04:00 68 11 L 96 02/25/23 04:00 36.6 C 105/65 02/25/23 03:00 70 16 94 02/25/23 03:00 107/69 02/25/23 02:00 68 16 95 02/25/23 02:00 100/76 02/25/23 01:00 83 11 L 95 02/25/23 01:00 101/75 02/25/23 00:00 36.5 C 74 17 95 02/25/23 00:00 103/67 02/25/23 00:00 77 02/24/23 23:00 84 13 97 02/24/23 23:00 106/67 02/24/23 22:05 97 H 6 L 96 02/24/23 22:05 119/76 02/24/23 22:00 74 12 94 02/24/23 21:00 96 H 16 95 02/24/23 21:00 121/82 Coding Level of Care Code 09400 SUB INP/OBS CARE 1/25MIN Diagnoses Generalized abdominal pain R10.84 Chronic, continuous use of opioids F11.90 Visceral hyperalgesia R19.8 Intractable pain R52
--- NOTE | 2023-02-25 09:32 | Pain Management Consultation ---
Date of Consultation February 25, 2023 Assessment & Plan (1) Visceral hyperalgesia: (2) Epigastric abdominal pain: (3) Gastrostomy tube in place: (4) Intestinal motility disorder: (5) Ileostomy status: (6) Chronic malnutrition: Plan Based on multiple past hospital admissions, the patient's case was previously reviewed in detail by an interdisciplinary team approach, and an inpatient treatment plan was developed. Per the previous recommendations from Dr. Hawkins: 1. Follow institutional protocol for ketamine infusion. * Continue as ordered. 2. Continue scheduled Cymbalta, gabapentin, methocarbamol, and fentanyl patch as ordered. 3. Continue PRN oral acetaminophen, IV lorazepam, and oral oxycodone solution as ordered. 4. Continue with aggressive outpatient mental health management including cognitive behavioral therapy to assist with developing coping skills for chronic pain. 5. Patient has undergone psychiatric screening, and it has been determined she does not have untreated psychopathology. Therefore, she is a candidate for a spinal cord stimulator trial. * She will need to be in an outpatient status come 03/02/2023, and will plan to proceed with spinal cord stimulator trial as planned. * A tunneled trial will be performed in order to perform a longer (2-week) trial to determine the efficacy. 6. Understand that the patient is being worked up with blood cultures to rule out presence of infection secondary to the left-sided port, which did have some slight abnormal appearance to the overlying skin. * This is being followed by general surgery, and is felt to be an unhealthy scar tissue with poor integrity. However, work-up is being done to ensure there is no early, low-grade infection occurring, and that this is instead likely just some skin and superficial tissue atrophy secondary to mechanical irritation. * If there were to be presence of an infection, this would need to be cleared up prior to undergoing the SCS trial, which would possibly mean rescheduling of the procedure. * Will peripherally follow blood cultures, currently pending, and if negative on final result, then we will plan to proceed as scheduled. History of Present Illness Attending Physician: Ramses Layne DO History of Present Illness 33-year-old female presented to the emergency department on 02/24/23 w/ return of chronic abdominal pain and associated pseudoseizure activity. Per the ER note: "This is a 33-year-old female presenting to the emergency department for evaluation of abdominal pain and seizure-like episode. Patient is well-known to this facility, and has complicated history of abdominal issues. Patient states that there was severe acute onset of abdominal pain around midnight tonight, with multiple seizure-like episodes. EMS was contacted to the home and patient did receive IV Toradol 15 mg as well as 2 doses of Ativan. Patient is describing a knot-like sensation in the right side abdomen with severe pelvic and abdominal pain. She is nauseated. She may have had a small amount of discharge from her rectal space. Patient is reportedly scheduled for a spinal stimulator placement in 6 days. She did have a celiac plexus block performed about 3 months ago, and has been doing better than normal since then. 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, and chronic abdominal pain with new seizure-like activity, apparently brought on again by her abdominal pain. Patient's seizure-like activity begins when her abdominal pain is severe. Patient reports mild improvement in symptoms overall since undergoing a celiac plexus block by Dr. Hawkins back in November. She is planned for an outpatient spinal cord stimulator trial at the pain management clinic on 03/02/2023. Case discussed with Dr. Hawkins. Allergies Allergy/AdvReac Type Severity Reaction Status Date / Time diphenhydramine Allergy Severe Anaphylaxis Verified 02/17/23 14:21 promethazine Allergy Severe hives, Verified 02/17/23 14:21 throat swelling adhesive Allergy Intermediate Redness of Verified 02/17/23 14:21 Skin amoxicillin Allergy Intermediate RASH Verified 02/17/23 14:21 calcium Allergy Intermediate SEE COMMENT Verified 02/17/23 14:21 [From VIACTIV Multi-Vitamin] cefazolin Allergy Intermediate rash Verified 02/17/23 14:21 Cephalosporins Allergy Intermediate HIVES Verified 02/17/23 14:21 clavulanic acid Allergy Intermediate HIVES Verified 02/17/23 14:21 ferric carboxymaltose Allergy Intermediate Rash Verified 02/17/23 14:21 [From Injectafer] folic acid Allergy Intermediate SEE COMMENT Verified 02/17/23 14:21 [From VIACTIV Multi-Vitamin] iron [From Venofer] Allergy Intermediate Muscle Pain Verified 02/17/23 14:21 multivitamin with minerals Allergy Intermediate SEE COMMENT Verified 02/17/23 14:21 [From VIACTIV Multi-Vitamin] Penicillins Allergy Intermediate HIVES Verified 02/17/23 14:21 prochlorperazine Allergy Intermediate HIVES Verified 02/17/23 14:21 sulfamethoxazole Allergy Intermediate RASH Verified 02/17/23 14:21 sumatriptan Allergy Intermediate RASH Verified 02/17/23 14:21 trimethoprim Allergy Intermediate RASH Verified 02/17/23 14:21 metoclopramide AdvReac Severe anxiety/ Verified 02/17/23 14:21 jittery morphine AdvReac Severe Severe Verified 02/17/23 14:21 abdominal Pain, sphincter of oddi spasms erythromycin base AdvReac Intermediate GI SYMPTOMS Verified 02/17/23 14:21 citalopram [From Celexa] AdvReac Unknown CAN'T Verified 02/17/23 14:21 REMEMBER Home Medications Medication Instructions Recorded Confirmed Type dicyclomine 10 mg capsule 10 - 20 mg PO Q6H PRN Abdominal 03/07/18 02/17/23 History Pain pantoprazole 40 mg tablet,delayed 40 mg PO QAM 09/08/19 02/17/23 History release (Protonix) famotidine 40 mg tablet 20 mg PO BID 11/28/19 02/17/23 History hydrocortisone 10 mg tablet 0 mg PO BID 02/07/20 02/17/23 History fexofenadine 180 mg tablet 180 mg PO PM 10/09/20 02/17/23 History fludrocortisone 0.1 mg tablet 0.1 mg PO BID 12/12/20 02/17/23 History acetaminophen 500 mg tablet 1,000 mg PO Q6H PRN Pain 06/13/21 02/17/23 History (Tylenol Extra Strength) multivitamin with minerals-folic 2 tab PO PM 06/13/21 02/17/23 History acid 200 mcg chewable tablet (Multivitamin Gummies) turmeric 400 mg capsule 400 mg PO PM 06/13/21 02/17/23 History empty container (Enema Misc Bottle) #72 ea 01/16/22 02/17/23 Rx cholecalciferol (vitamin D3) 25 50 mcg PO DAILY 04/07/22 02/17/23 History mcg (1,000 unit) capsule (Vitamin D3) duloxetine 60 mg capsule,delayed 60 mg PO DAILY 04/07/22 02/17/23 History release methocarbamol 750 mg tablet 750 mg PO TID 04/07/22 02/17/23 History coenzyme Q10 100 mg capsule 100 mg PO PM 07/22/22 02/17/23 History (CoQ-10) pyridoxine (vitamin B6) 50 mg 50 mg PO DAILY 07/22/22 02/17/23 History tablet ondansetron 8 mg disintegrating 8 mg PO TID PRN Nausea 10/06/22 02/17/23 History tablet fentanyl 75 mcg/hr transdermal 1 patch transdermal Q72H #10 ea 10/23/22 02/17/23 Rx patch lorazepam 2 mg/mL injection 0.5 mg (0.25 mL) buccal QID PRN 12/04/22 02/17/23 Rx solution (Ativan) Nausea #100 mL bethanechol chloride 25 mg tablet 12.5 mg PO BID PRN urinary 12/05/22 02/17/23 Rx retention #20 tabs gabapentin 250 mg/5 mL oral 600 mg (12 mL) PO TID #250 mL 12/05/22 02/17/23 Rx solution levothyroxine 50 mcg tablet 50 mcg PO DAILY #30 tabs 12/05/22 02/17/23 Rx (Synthroid) oxycodone 5 mg/5 mL oral solution 5 mg (5 mL) PO Q4H PRN pain #250 mL 12/05/22 02/17/23 Rx diazepam 5 mg tablet 5 mg PO .COMPLEX #3 tabs 12/23/22 02/17/23 Rx Pain History Chief Complaint Chief Complaint: chronic abdominal pain Patient History Medical History Abdominal pain Asthma Chronic migraine Chronic, continuous use of opioids Colitis Dehydration Diversion colitis DVT prophylaxis Elevated lipase Endometriosis has had 3 surgeries for this. Last surgery [address] Hemorrhagic cystitis Hypotension Intussusception Nausea Nausea and vomiting Pancreatitis PICC (peripherally inserted central catheter) in place TPN SMAS (superior mesenteric artery syndrome) History of SMAS SMAS (superior mesenteric artery syndrome) Sphincter of Oddi dysfunction DECREASED GI MOTILITY Transaminitis Uses feeding tube gastroparesis and decreased GI motility can not tolerate feeding and uses TPN UTI (urinary tract infection) Surgical History H/O adenoidectomy H/O laparoscopy H/O lumpectomy right breast 2011 History of appendectomy History of bowel resection Part of duodenum removed due to necrosis; done at [facility] 2019 History of hysterectomy 09/27/19 History of removal of Port-a-Cath 10/13/[address] Geiger, [facility], due to bacteremia/sepsis. History of vascular access device 2017 Hx of colonoscopy during procedure perforated small bowel 10/27/2019 at [facility], subsequent repair of duodenal area. Hx of ileostomy Hx of tonsillectomy S/P cholecystectomy 2015 S/P wrist surgery right Family History Father Hyperlipidemia Other No significant family history Social History Smoking Status: Never smoker Second Hand Exposure: No; Do You Dip or Chew Tobacco: No; Hx Alcohol Use: No Hx Substance Use: No Preferred Language: Irish Communication Ability: Effective Visual Impairment: No Limitations Hearing Ability: Normal Health And Wellness Advisor Required: No Beliefs That Will Affect Care: None marital status: Single Current Living Situation: Parent Current Living Situation Comment: Lives with family. current occupational status: unemployed current occupation: completed 4-year degree at [employer] How many Children do You have: 0 Feels Safe at Home: Yes Diet: regular Sexual Activity Comment: not sexually active Assistive Devices: Brace/Splint/Immobilizer and Glasses Physical Exam Physical Exam: GENERAL: WN/WD, AA&Ox3, NAD. Lying in bed. Converses normally. HEAD/FACE: Normocephalic and atraumatic. EYES: No drainage or conjunctival injection. ENT: Nasal cannula in place. NECK: No swelling noted. RESPIRATORY: Patient with unlabored breathing. No signs of respiratory distress. CHEST/AXILLA: Chest movement symmetrical. Bandage to upper chest, intact. SKIN: [place], warm and dry. MS/EXTREMITY: Moving extremities appropriately. NEURO: Alert and appears oriented. Speech is fluent, but slow. Cranial Nerves are grossly intact. PSYCH: Alert, pleasant, affect is calm. Constitutional: WD/WN, vitals as above no acute distress Gastrointestinal (Abdomen): Percussion/Palpation: + abdomen tender Results (Pain Clinic) Diagnostic Review Radiology Findings: KUB HISTORY: Generalized abdominal pain. COMPARISON: KUB 12/06/2022. FINDINGS: The bowel gas pattern is unremarkable. There are no dilated loops of small bowel to suggest an obstruction. No renal calculi. No ureteral calculi. Calcifications in the deep pelvis likely represent phleboliths. These remain unchanged. No pneumoperitoneum or pneumatosis. A gastrojejunostomy tube is unchanged in position. Prior cholecystectomy. The lung bases are clear. Subtle clips noted within the deep pelvis. IMPRESSION: 1. Nonobstructive bowel gas pattern. 2. The gastrojejunostomy tube is unchanged in position. ACT 112: Negative or not required by law. Electronically signed by: Victor Hugo Snowden M.D. 02/24/2023 8:14 AM Dictated:02/24/23812 Transcribed: 02/24/23812
--- NOTE | 2023-02-25 14:48 | Surgery Progress Note ---
Date of Service February 25, 2023 Assessment & Plan (1) Intractable pain: Plan: Pain contorlled with current regimen right port in use and continues to function I have consulted with vascular surgery for this particular case as she has had ports placed in both IJ's and blind access may be ill-advised in this particular patient. The port does not appear to be infected but is pressing on the skin causing compromise to already unhealthy and low integrity scar tissue. Should the port become fully exposed, it will need to be removed with a possibility of leaving the catheter in place and re-seated in a pocket away from the incision. If there is concern of port infection, general surgery will be able to remove this port, if preferred over IV antibiotics and vascular surgery can be consulted for replacement access if this is deemed still necessary at that time.f Today the mother is concerned with accessing this port due to its fragility and would like to leave things alone to not compromise her upcoming procedure. There is concern that blood cultures, if not taken/drawn carefully away from the compromised area of skin may cause the final skin breakdown at the medial aspect of the incision. Admission and Anticipated Discharge Date Admission Date: February 24, 2023 Subjective I have seen the patient this am to discuss options with her and her mother. She feels improved. Does not c/o issues at the left port site. Her and her mother are having reservations regarding doing anything at this site for now and would like to see her through the nerve stimulator procedure scheduled for Thursday as she has waited for this for a long time. She also explains that this implant is not permanent and will only be present for two weeks. Physical Exam Constitutional: average body habitus; no acute distress, not ill appearing and not diaphoretic Skin: Unchanged Results & Data Vital Signs (Past 12 Hours) Vital Signs Temp Pulse Resp BP Pulse Ox Pulse Ox O2 Del Method 02/25/23 12:00 93 Room Air 02/25/23 11:00 112 H 10 L 95 02/25/23 11:00 120/91 02/25/23 10:00 82 13 93 02/25/23 10:00 108/73 02/25/23 09:00 74 11 L 95 02/25/23 09:00 114/75 02/25/23 08:57 80 10 L 96 02/25/23 08:57 115/76 02/25/23 10:10 36.6 C 02/25/23 08:00 71 8 L 95 02/25/23 08:00 123/88 02/25/23 07:00 79 13 94 02/25/23 07:00 102/72 02/25/23 08:00 72 02/25/23 05:00 71 13 94 02/25/23 05:00 105/65 02/25/23 04:00 68 11 L 96 02/25/23 04:00 36.6 C 105/65 02/25/23 03:00 70 16 94 02/25/23 03:00 107/69 PG Care Time/CCT Total # of Minutes Spent Total Time Spent with Patient: Total time spent is greater than 50% in coordination of care (as documented) at patient's floor/unit and/or counseling patient: Coding Level of Care Code 16391 SUB INP/OBS CARE 06/11MIN Diagnoses Intractable pain R52
--- NOTE | 2023-02-25 18:33 | Billing Data ---
Date of Service February 25, 2023 Coding Level of Care Code 21011 SUB INP/OBS CARE MIN
[2023-02-25] MEDS: ACETAMINOPHEN 500 MG TAB PO PRN (19:34)
[2023-02-25] MEDS: DICYCLOMINE HCL 20 MG TAB PO PRN (21:26)
[2023-02-25] MEDS: FEXOFENADINE HCL 180 MG TAB PO SCH (21:26)
[2023-02-25] MEDS: CEROVITE ADV FORMULA TAB PO SCH (21:27)
[2023-02-26] MEDS: oxyCODONE HCL SOLN 5 MG/5 ML UDC PO PRN ×6 (01:32→22:29)
[2023-02-26] MEDS: KETAMINE HCL IV PRN ×5 (03:48→20:22)
[2023-02-26] MEDS: ONDANSETRON INJ 2 MG/ML 2 ML VIAL IV PRN ×3 (03:48→21:22)
[2023-02-26] MEDS: SODIUM CHLORIDE 0.9% IV PRN ×5 (03:48→20:22)
[2023-02-26] MEDS: LACTATED RINGER'S 1,000 ML IV SCH ×3 (03:49→15:21)
[2023-02-26 04:01] LABS: Appearance Urine Clear (Clear); Bilirubin Urine Negative (Negative); Blood Urine Negative (Negative); Color Urine Yellow; Glucose Urine UA Negative (Negative); Ketones Urine 1+ (Negative); Leukocyte Esterase Urine Negative (Negative); Nitrite Urine Negative (Negative); Protein Urine Negative (Negative); Urobilinogen Urine Negative (Negative); pH Urine 6.5 (4.5-7.5)
[2023-02-26 04:10] LABS: Basophils # (auto) 0.04 K/uL (0.00-0.20); Basophils % (auto) 0.7 %; Eosinophils # (auto) 0.14 K/uL (0.00-0.50); Eosinophils % (auto) 2.3 %; Hematocrit (blood only) 33.2 % (37.0-47.0); Hemoglobin 11.4 g/dl (12.0-16.0); Immature Granulocytes # (auto) 0.01 K/uL (0.01-0.20); Immature Granulocytes % (auto) 0.2 %; Lymphocytes # (auto) 1.54 K/uL (1.20-3.40); Lymphocytes % (auto) 25.3 %; Mean Corpuscular Hemoglobin 30.9 pg (25.0-34.0); Mean Corpuscular Hgb Conc 34.3 g/dL (32.0-36.0); Mean Platelet Volume 9.9 fL (9.4-12.4); Monocytes # (auto) 0.63 K/uL (0.11-0.59); Monocytes % (auto) 10.4 %; Neutrophils # (auto) 3.72 K/uL (1.40-6.50); Neutrophils % (auto) 61.1 %; Platelet Count 278 K/uL (130-400); RDW Coefficient of Variation 12.5 % (11.5-14.5); RDW Standard Deviation 41.1 fL (36.4-46.3); Red Blood Count 3.69 M/uL (4.20-5.40); White Blood Count 6.08 K/ul (4.8-10.8)
[2023-02-26 04:31] LABS: BUN Creatinine Ratio 6.6 (10-20); Calcium 8.4 mg/dl (8.6-10.3); Creatinine Clr Calc Pharmacy 125.1 ml/min; Est GFR (Non-African American) 120.8 ml/min; Magnesium 1.9 mg/dl (1.7-2.4); Potassium 3.4 mmol/L (3.5-5.1)
[2023-02-26] MEDS: LEVOTHYROXINE SODIUM 50 MCG TABLET PO SCH (05:40)
[2023-02-26] MEDS: DICYCLOMINE HCL 20 MG TAB PO PRN ×3 (05:42→18:36)
[2023-02-26] MEDS: LORazepam 2 MG/1 ML VIAL IV PRN ×3 (05:45→18:16)
[2023-02-26] MEDS ORDERED: MAGNESIUM SULFATE / D5W 1 GM/100 ML BAG IV ONE (05:57)
[2023-02-26] MEDS ORDERED: POTASSIUM CHLORIDE 20 MEQ/15 ML UDC PO STA (05:57)
[2023-02-26] MEDS: POTASSIUM CHLORIDE / WTR 10 MEQ/100 ML PLCT IV SCH ×4 (06:12→09:58)
[2023-02-26] MEDS: ICU Protocol for HYPERglycemia SCH (07:21)
--- NOTE | 2023-02-26 07:37 | Hospitalist Progress Note ---
Date of Service February 26, 2023 Assessment & Plan (1) Intractable pain: (2) Visceral hyperalgesia: (3) Chronic, continuous use of opioids: (4) SMAS (superior mesenteric artery syndrome): (5) Uses feeding tube: Plan This is a 33yo Female with PMH complicated past medical history to include non- epileptic seizures, adrenal insufficiency and extensive GI history to include SMA syndrome, multiple GI surgeries with chronic, intractable abdominal pain, gastroparesis and dysmotility. She has an ostomy in place as well as a gastric tube for venting. She also receives TPN as well as night time IVF at home.Patient came to ED for concern uncontrollable abd pain. #Acute on Chronic Abdominal Pain Plan for ketamine infusion in ICU Consult with pain management to consider repeat nerve block Plan for spinal stimulator. Will have to be done as outpatient. Procedure scheduled for Thursday. #Port inflammation Surgery examined, not felt to be grossly infected. f/u blood cultures, if negative attempt to flush Plan for fluid administration tonight, reevaluate for TPN tomorrow #Adrenal Insufficiency continue home fludrocortisone, hydrocortisone #Hypothyroidism continue home levothyroxine FENa: TPN will restart this evening Code Status: Full DVT PPX: SCDs PT/OT: consider if extended hospitalization Dispo: ICU for ketamine Admission and Anticipated Discharge Date Admission Date: February 24, 2023 Supervising Physician Co-Signing Physician Notes I personally examined the patient and verified all solorzano points of history and exam, discussed case, and agree with decision making with Dr Carty Doing a bit better today. Still a good bit of pain, still requiring [id number] management, but feels like she is getting ahead of it more. No new issues. vitals noted Fatigued more than an discomfort. No distress heent nc at mmm breathing unlabored. neuro without focal deficits Visceral hyperalgesiaacute flareupContinue current plan continue supportive care Port site irritationFortunately no clear signs or symptoms of infection, unfortunately it does seem that there is a little bit of tissue breakdown. Obviously no emergency at this point time. Given how close she is to her spinal cord stimulator trial, she would prefer to hold off on any action on the porch that might interfere with getting her stimulator placed. As far as IV access, she has her 1 working port, and a peripheral IV, so ketamine and TPN are able to both be given. Otherwise as above Subjective 33F well known to our service admitted with intractable pain. Has been on ketamine therapy in the past. Admitted to ICU for ketamine administration. Plan for spinal stimulator next week. Pt also complaining of swelling and pain in her L port. Endorses global pain localized to the abdomen, nausea. Pain marginally improved today Review of Systems Review of Systems: reviewed, per HPI Physical Exam Physical Exam: General: Obvious discomfort, AA&O x 4, answers questions appropriately and follows commands. Skin: warm, dry, intact HEENT: NC/AT, anicteric sclera, conjunctiva without injection, moist mucus membranes, trachea midline, no thyromegaly, no JVD Heart: well perfused Lungs: no increased work of breathing Abd: +BS, soft, TTP, JG tube in place, ostomy in place Ext: warm, no clubbing/cyanosis or edema Neuro: nonfocal, patient AA&O x 4, speech intact, no facial droop, moving all extremities on command. Results & Data Results & Data Vital Signs (Past 12 Hours) Vital Signs Temp Pulse Resp BP Pulse Ox O2 Del Method 02/26/23 06:00 83 12 109/77 95 Room Air 02/26/23 05:00 68 12 105/56 L 95 Room Air 02/26/23 04:00 36.9 C 73 14 122/90 95 Room Air 02/26/23 03:00 100 H 13 130/89 96 Room Air 02/26/23 02:00 71 12 103/75 94 Room Air 02/26/23 01:00 72 12 122/70 95 Room Air 02/26/23 00:00 36.9 C 87 14 116/88 95 Room Air 02/25/23 23:00 81 12 114/75 94 Room Air 02/25/23 22:00 79 12 116/72 93 Room Air 02/25/23 21:00 96 H 12 106/73 94 Room Air 02/25/23 20:00 36.6 C 88 12 114/77 93 Room Air Resident Activity Tracking Resident Involvement: Resident Care Provided Care Provided: Adult Hospital Medicine
[2023-02-26] MEDS: CHECK fentaNYL PATCH PLACEMENT SCH ×2 (08:20→16:06)
[2023-02-26] MEDS: HYDROCORTISONE 10 MG TAB PO SCH ×2 (08:21→15:18)
[2023-02-26] MEDS: PANTOprazole 40 MG TAB PO SCH (08:21)
[2023-02-26] MEDS: CHOLECALCIFEROL 1,000 UNITS 25 MCG TAB PO SCH (08:22)
[2023-02-26] MEDS: FAMOTIDINE 20 MG TAB PO SCH ×2 (08:22→21:14)
[2023-02-26] MEDS: PYRIDOXINE HCL 50 MG TAB PO SCH (08:23)
[2023-02-26] MEDS: FLUDROCORTISONE ACETATE 0.1 MG TAB PO SCH ×2 (08:23→21:14)
[2023-02-26] MEDS: METHOCARBAMOL 750 MG TABLET PO SCH ×3 (08:23→21:14)
[2023-02-26] MEDS: DULoxetine HCL 60 MG CAP PO SCH (08:23)
[2023-02-26] MEDS: GABAPENTIN 250 MG/5 ML 470 ML BTL PO SCH ×3 (08:27→21:14)
[2023-02-26] MEDS: BETHANECHOL CHL 25 MG TAB PO PRN ×2 (08:31→21:17)
--- NOTE | 2023-02-26 08:59 | Critical Care Progress Note ---
Date of Service February 26, 2023 Assessment & Plan (1) Generalized abdominal pain: Plan: Requiring ICU level monitoring per institutional guidelines with ketamine infusion for pain control -Pain management following -Hospitalist team primary -Vascular access issues managed between general surgery and vascular surgery. (2) Chronic, continuous use of opioids: (3) Visceral hyperalgesia: (4) Intractable pain: Admission and Anticipated Discharge Date Admission Date: February 24, 2023 Subjective No overnight events. No complaints. Transitioning to different ICU room secondary to staffing purposes. Following peripherally secondary to ketamine administration. Physical Exam Physical Exam: General: Alert. nontoxic. Skin: Warm, dry, Head: Atraumatic Ears, nose, mouth and throat: airway patent Cardiovascular: Normal peripheral perfusion Respiratory: no respiratory distress Gastrointestinal: Non distended Musculoskeletal: No deformity Results & Data Results & Data Vital Signs (Past 12 Hours) Vital Signs Temp Pulse Resp BP Pulse Ox O2 Del Method 02/26/23 08:00 63 02/26/23 08:05 73 12 95 02/26/23 08:05 115/86 02/26/23 08:00 74 12 95 02/26/23 08:00 120/81 02/26/23 07:55 76 14 95 02/26/23 07:55 111/81 02/26/23 07:50 85 9 L 97 02/26/23 07:50 113/83 02/26/23 07:45 95 H 11 L 97 02/26/23 07:45 115/79 02/26/23 06:00 83 12 109/77 95 Room Air 02/26/23 05:00 68 12 105/56 L 95 Room Air 02/26/23 04:00 36.9 C 73 14 122/90 95 Room Air 02/26/23 03:00 100 H 13 130/89 96 Room Air 02/26/23 02:00 71 12 103/75 94 Room Air 02/26/23 01:00 72 12 122/70 95 Room Air 02/26/23 00:00 36.9 C 87 14 116/88 95 Room Air 02/25/23 23:00 81 12 114/75 94 Room Air 02/25/23 22:00 79 12 116/72 93 Room Air 02/25/23 21:00 96 H 12 106/73 94 Room Air Critical Care Results & Data Vital Signs (Past 12 Hours) Vital Signs Temp Pulse Resp BP Pulse Ox O2 Del Method 02/26/23 08:00 63 02/26/23 08:05 73 12 95 02/26/23 08:05 115/86 02/26/23 08:00 74 12 95 02/26/23 08:00 120/81 02/26/23 07:55 76 14 95 02/26/23 07:55 111/81 02/26/23 07:50 85 9 L 97 02/26/23 07:50 113/83 02/26/23 07:45 95 H 11 L 97 02/26/23 07:45 115/79 02/26/23 06:00 83 12 109/77 95 Room Air 02/26/23 05:00 68 12 105/56 L 95 Room Air 02/26/23 04:00 36.9 C 73 14 122/90 95 Room Air 02/26/23 03:00 100 H 13 130/89 96 Room Air 02/26/23 02:00 71 12 103/75 94 Room Air 02/26/23 01:00 72 12 122/70 95 Room Air 02/26/23 00:00 36.9 C 87 14 116/88 95 Room Air 02/25/23 23:00 81 12 114/75 94 Room Air 02/25/23 22:00 79 12 116/72 93 Room Air 02/25/23 21:00 96 H 12 106/73 94 Room Air Lab & Micro Results (Past 24 Hours) RBC 3.69 M/uL (4.20-5.40) L 02/26/23 WBC 6.08 K/ul (4.8-10.8) 02/26/23 Hgb 11.4 g/dl (12.0-16.0) L 02/26/23 Hct 33.2 % (37.0-47.0) L 02/26/23 MCV 90.0 fL (80.0-100.0) 02/26/23 MCH 30.9 pg (25.0-34.0) 02/26/23 MCHC 34.3 g/dL (32.0-36.0) 02/26/23 RDW Standard Deviation 41.1 fL (36.4-46.3) 02/26/23 RDW Coefficient of Variation 12.5 % (11.5-14.5) 02/26/23 Plt Count 278 K/uL (130-400) 02/26/23 MPV 9.9 fL (9.4-12.4) 02/26/23 Neutrophils (%) (Auto) 61.1 % 02/26/23 Lymphocytes (%) (Auto) 25.3 % 02/26/23 Monocytes # (Auto) 0.63 K/uL (0.11-0.59) H 02/26/23 Eosinophils # (Auto) 0.14 K/uL (0.00-0.50) 02/26/23 Immature Granulocyte % (Auto) 0.2 % 02/26/23 Neutrophils # (Auto) 3.72 K/uL (1.40-6.50) 02/26/23 Lymphocytes # (Auto) 1.54 K/uL (1.20-3.40) 02/26/23 Monocytes # (Auto) 0.63 K/uL (0.11-0.59) H 02/26/23 Eosinophils # (Auto) 0.14 K/uL (0.00-0.50) 02/26/23 Basophils # (Auto) 0.04 K/uL (0.00-0.20) 02/26/23 Immature Granulocyte # (Auto) 0.01 K/uL (0.01-0.20) 3 Na 142 mmol/L (136-145) 02/26/23 K 3.4 mmol/L (3.5-5.1) L 02/26/23 Cl 105 mmol/L (98-107) 02/26/23 CO2 31 mmol/L (21-32) 02/26/23 Anion Gap 6 (3-11) 02/26/23 BUN 4 mg/dl (6-23) L 02/26/23 Creatinine 0.61 mg/dl (0.6-1.2) 02/26/23 Estimated GFR ( Amer) 140.0 ml/min 02/26/23 Estimated GFR (Non-Af Amer) 120.8 ml/min 02/26/23 BUN/Creatinine Ratio 6.6 (10-20) L 02/26/23 Glu 83 mg/dl (70-99(Fasting)) 02/26/23 Ca 8.4 mg/dl (8.6-10.3) L 02/26/23 Phosphorus Level 4.0 mg/dl (2.5-4.9) 02/26/23 Mg 1.9 mg/dl (1.7-2.4) 02/26/23 03:47 Calcium Level 8.4 mg/dl (8.6-10.3) L 02/26/23 03:47 Microbiology 02/24/23 18:05 Aerobic Blood Culture - Preliminary Blood No growth in Aerobic bottle after 24 hours. Anaerobic Blood Culture - Preliminary No growth in Anaerobic bottle after 24 hours. 02/24/23 18:05 Aerobic Blood Culture - Preliminary Blood No growth in Aerobic bottle after 24 hours. Anaerobic Blood Culture - Preliminary No growth in Anaerobic bottle after 24 hours. I & O Totals 24 Hours 02/25/23 02/26/23 02/27/23 06:59 06:59 06:59 Intake Total 1800.5 / 1800.5 4965.5 / 4965.5 350.1 / 350.1 Output Total 1500 / 1500 5025 / 5025 Balance 300.5 / 300.5 -59.5 / -59.5 350.1 / 350.1 Cumulative 02/24/23 03:37 thru 02/26/23 08:36 Intake Total 8216.1 Output Total 6525 Balance 1691.1 RT Ventilator Mngmt (Last Documented) Ventilator Ordered Settings Respiratory Rate 12 02/26/23 08:05 Ventilator - PT Measurements Respiratory Rate 12 End-Tidal CO2 39 Coding Level of Care Code 45977 SUB INP/OBS CARE 1/25MIN Diagnoses Generalized abdominal pain R10.84 Chronic, continuous use of opioids F11.90 Visceral hyperalgesia R19.8 Intractable pain R52
[2023-02-26] MEDS ORDERED: Nursing to Pharmacy Communication SCH (10:00)
[2023-02-26] MEDS ORDERED: DEXTROSE 10% 1,000 ML IV PRN (14:06)
[2023-02-26] MEDS: [UNRECOGNIZED DRUG - REMARK] SCH (15:22)
--- NOTE | 2023-02-26 16:53 | Billing Data ---
Date of Service February 26, 2023 Coding Level of Care Code 09759 SUB INP/OBS CARE MIN
[2023-02-26] MEDS ORDERED: CENTRAL TPN IV SCH (21:00)
[2023-02-26] MEDS ORDERED: [UNRECOGNIZED DRUG - REMARK] ONE (21:00)
[2023-02-26] MEDS ORDERED: [UNRECOGNIZED DRUG - OTHER] IV SCH (21:00)
[2023-02-26] MEDS: FEXOFENADINE HCL 180 MG TAB PO SCH (21:14)
[2023-02-26] MEDS: CEROVITE ADV FORMULA TAB PO SCH (21:15)
[2023-02-27] MEDS: DICYCLOMINE HCL 20 MG TAB PO PRN (00:56)
[2023-02-27] MEDS: SODIUM CHLORIDE 0.9% IV PRN ×6 (00:56→21:45)
[2023-02-27] MEDS: KETAMINE HCL IV PRN ×6 (00:56→21:45)
[2023-02-27] MEDS: LORazepam 2 MG/1 ML VIAL IV PRN ×4 (00:57→23:39)
[2023-02-27] MEDS: CHECK fentaNYL PATCH PLACEMENT SCH ×4 (01:00→23:53)
[2023-02-27] MEDS: oxyCODONE HCL SOLN 5 MG/5 ML UDC PO PRN ×6 (02:57→23:39)
[2023-02-27 05:01] LABS: Basophils # (auto) 0.04 K/uL (0.00-0.20); Basophils % (auto) 0.4 %; Eosinophils # (auto) 0.14 K/uL (0.00-0.50); Eosinophils % (auto) 1.6 %; Hemoglobin 11.4 g/dl (12.0-16.0); Immature Granulocytes # (auto) 0.02 K/uL (0.01-0.20); Immature Granulocytes % (auto) 0.2 %; Lymphocytes # (auto) 1.45 K/uL (1.20-3.40); Lymphocytes % (auto) 16.2 %; Mean Corpuscular Hemoglobin 30.5 pg (25.0-34.0); Mean Corpuscular Hgb Conc 33.5 g/dL (32.0-36.0); Mean Corpuscular Volume 90.9 fL (80.0-100.0); Monocytes # (auto) 0.92 K/uL (0.11-0.59); Monocytes % (auto) 10.3 %; Neutrophils % (auto) 71.3 %; Platelet Count 252 K/uL (130-400); RDW Coefficient of Variation 12.5 % (11.5-14.5); RDW Standard Deviation 41.4 fL (36.4-46.3); Red Blood Count 3.74 M/uL (4.20-5.40); White Blood Count 8.97 K/ul (4.8-10.8)
[2023-02-27 05:07] LABS: BUN Creatinine Ratio 20.7 (10-20); Calcium 8.3 mg/dl (8.6-10.3); Creatinine Clr Calc Pharmacy 131.6 ml/min; Est GFR (African American) 142.4 ml/min; Est GFR (Non-African American) 122.8 ml/min; Magnesium 2.2 mg/dl (1.7-2.4); Phosphorus 3.1 mg/dl (2.5-4.9); Potassium 3.6 mmol/L (3.5-5.1)
--- NOTE | 2023-02-27 06:57 | Hospitalist Progress Note ---
Date of Service February 27, 2023 Assessment & Plan (1) Intractable pain: (2) Visceral hyperalgesia: (3) Chronic, continuous use of opioids: (4) SMAS (superior mesenteric artery syndrome): (5) Uses feeding tube: Plan This is a 33yo Female with PMH complicated past medical history to include non- epileptic seizures, adrenal insufficiency and extensive GI history to include SMA syndrome, multiple GI surgeries with chronic, intractable abdominal pain, gastroparesis and dysmotility. She has an ostomy in place as well as a gastric tube for venting. She also receives TPN as well as night time IVF at home.Patient came to ED for concern uncontrollable abd pain. #Acute on Chronic Abdominal Pain Plan for ketamine infusion in ICU Consult with pain management to consider repeat nerve block Plan for spinal stimulator. Will have to be done as outpatient. Procedure scheduled for Thursday. #Port inflammation Surgery examined, not felt to be grossly infected. f/u blood cultures, if negative attempt to flush Plan for fluid administration tonight, reevaluate for TPN tomorrow #Adrenal Insufficiency continue home fludrocortisone, hydrocortisone #Hypothyroidism continue home levothyroxine FENa: TPN will restart this evening Code Status: Full DVT PPX: SCDs PT/OT: consider if extended hospitalization Dispo: ICU for ketamine Admission and Anticipated Discharge Date Admission Date: February 24, 2023 Supervising Physician Co-Signing Physician Notes I personally examined the patient and verified all solorzano points of history and exam, discussed case, and agree with decision making with Dr Carty Pain and nausea worsedoubled over sitting up in bed with an emesis bag whenever I first saw her. Ordered medications, revisited about an hour and a half laterstill in a good bit of pain and nauseated but at least able to lay down an d not actively vomiting. vitals noted initial visit sitting up in bed leaning forward holding vomit bag looking extremely uncomfortable. Later still looking somewhat uncomfortable very fatigued but less true distress. Breathing unlabored no accessory muscle use good effort. Skin shows no rashes no pallor or icterus. Visceral hyperalgesiaacute flareupContinue current plan continue supportive care. Aggressive management today. Port site irritationFortunately no clear signs or symptoms of infection, and cultures are negative to date. Unfortunately it does seem that there is a little bit of tissue breakdown. Obviously no emergency at this point time. Given how close she is to her spinal cord stimulator trial, she would prefer to hold off on any action on the porch that might interfere with getting her stimulator placed. As far as IV access, she has her 1 working port, and a peripheral IV, so ketamine and TPN are able to both be given. Otherwise as above Subjective 33F well known to our service admitted with intractable pain. Has been on ketamine therapy in the past. Admitted to ICU for ketamine administration. Plan for spinal stimulator next week. Pt also complaining of swelling and pain in her L port. Endorses global pain localized to the abdomen, nausea. Pain marginally improved today. Plan to start TPN today Review of Systems Review of Systems: reviewed, per HPI Physical Exam Physical Exam: General: Obvious discomfort, AA&O x 4, answers questions appropriately and follows commands. Skin: warm, dry, intact HEENT: NC/AT, anicteric sclera, conjunctiva without injection, moist mucus membranes, trachea midline, no thyromegaly, no JVD Heart: well perfused Lungs: no increased work of breathing Abd: +BS, soft, TTP, JG tube in place, ostomy in place Ext: warm, no clubbing/cyanosis or edema Neuro: nonfocal, patient AA&O x 4, speech intact, no facial droop, moving all extremities on command. Results & Data Results & Data Vital Signs (Past 12 Hours) Vital Signs Pulse Resp BP Pulse Ox 02/27/23 06:00 77 16 95 02/27/23 06:00 91/62 L 02/27/23 05:57 79 14 02/27/23 05:57 100/67 02/27/23 05:55 77 13 94 02/27/23 05:55 102/64 02/27/23 05:50 78 17 94 02/27/23 05:50 95/71 L 02/27/23 05:45 76 15 95 02/27/23 05:45 97/65 L 02/27/23 05:40 76 14 94 02/27/23 05:40 101/69 02/27/23 05:35 76 13 94 02/27/23 05:35 99/67 L 02/27/23 05:30 74 14 95 02/27/23 05:30 100/70 02/27/23 05:25 85 12 95 02/27/23 05:25 101/65 10/13/23 05:20 86 12 95 02/27/23 05:20 101/62 02/27/23 05:15 83 11 L 96 02/27/23 05:15 103/76 02/27/23 05:13 96 H 11 L 96 02/27/23 05:13 107/75 02/27/23 05:10 78 14 95 02/27/23 05:05 81 13 94 02/27/23 05:00 84 13 94 02/27/23 05:00 106/64 02/27/23 04:30 72 16 95 02/27/23 04:00 78 15 94 02/27/23 04:00 115/81 02/27/23 03:30 95 H 26 H 96 02/27/23 03:00 75 11 L 93 02/27/23 03:00 102/67 02/27/23 02:30 75 17 94 02/27/23 02:00 70 14 94 02/27/23 02:00 101/65 02/27/23 01:30 74 14 95 02/26/23 20:00 103 H 02/27/23 00:00 79 02/27/23 05:17 97 H 16 101/62 95 02/27/23 05:12 84 13 103/76 95 02/26/23 20:40 88 121/85 02/26/23 20:35 84 10 L 119/84 93 02/26/23 20:32 92 H 10 L 116/77 94 02/26/23 20:20 84 12 110/73 94 02/26/23 20:39 82 9 L 94 02/26/23 20:38 84 11 L 94 02/26/23 20:37 85 13 94 02/26/23 20:36 83 12 95 02/26/23 20:34 87 8 L 94 02/26/23 20:33 87 8 L 94 02/26/23 20:30 98 H 9 L 95 02/26/23 20:29 83 8 L 94 02/26/23 20:28 91 H 10 L 95 02/26/23 20:27 84 7 L 95 02/26/23 20:26 83 9 L 95 02/26/23 20:25 84 13 95 02/26/23 20:24 83 11 L 93 02/26/23 20:23 79 10 L 95 02/26/23 20:22 85 10 L 95 02/26/23 20:21 84 11 L 94 02/27/23 01:20 81 9 L 96 02/27/23 01:15 83 12 95 02/27/23 01:10 92 H 10 L 111/75 95 02/27/23 01:05 104 H 8 L 96 02/27/23 01:03 114/85 02/27/23 01:03 94 H 9 L 02/27/23 01:00 91 H 10 L 95 02/27/23 00:55 103 H 9 L 93 02/27/23 00:55 115/84 02/27/23 00:00 77 15 96 02/27/23 00:00 114/75 02/26/23 23:00 78 14 93 02/26/23 23:00 113/76 02/26/23 22:00 82 10 L 94 02/26/23 22:00 127/88 02/26/23 21:00 99 H 13 93 02/26/23 21:00 121/84 02/26/23 20:00 85 13 94 02/26/23 20:00 113/76 02/26/23 19:00 88 7 L 96 02/26/23 19:00 130/87 02/26/23 20:00 103 H 02/26/23 20:22 82 13 110/73 95 Resident Activity Tracking Resident Involvement: Resident Care Provided Care Provided: Adult Hospital Medicine
[2023-02-27] MEDS: LEVOTHYROXINE SODIUM 50 MCG TABLET PO SCH (07:10)
[2023-02-27] MEDS: ONDANSETRON INJ 2 MG/ML 2 ML VIAL IV PRN ×2 (09:38→15:04)
[2023-02-27] MEDS: HYDROCORTISONE 10 MG TAB PO SCH ×2 (09:44→15:03)
[2023-02-27] MEDS: BETHANECHOL CHL 25 MG TAB PO PRN ×2 (09:45→21:45)
[2023-02-27] MEDS: PYRIDOXINE HCL 50 MG TAB PO SCH (09:46)
[2023-02-27] MEDS: CHOLECALCIFEROL 1,000 UNITS 25 MCG TAB PO SCH (09:48)
[2023-02-27] MEDS: FLUDROCORTISONE ACETATE 0.1 MG TAB PO SCH ×2 (09:48→21:09)
[2023-02-27] MEDS: DULoxetine HCL 60 MG CAP PO SCH (09:49)
[2023-02-27] MEDS: FAMOTIDINE 20 MG TAB PO SCH ×2 (09:49→21:09)
[2023-02-27] MEDS: GABAPENTIN 250 MG/5 ML 470 ML BTL PO SCH ×3 (09:50→21:16)
[2023-02-27] MEDS: METHOCARBAMOL 750 MG TABLET PO SCH ×3 (09:51→21:10)
[2023-02-27] MEDS: PANTOprazole 40 MG TAB PO SCH (09:51)
--- NOTE | 2023-02-27 14:34 | Pharmacy Report ---
PHA: Parenteral Nutrition Con - Date of Service February 27, 2023 - [facility] was consulted on 02/26 to manage parenteral nutrition orders for this patient. - Subjective The patient is currently on day 2 of central parenteral nutrition for chronic tpn. - Objective Height: 5 ft 6 in Weight: 66.2 kg Intake & Output (24hrs):: Intake & Output 02/25/23 02/26/23 02/27/23 02/28/23 06:59 06:59 06:59 06:59 Intake Total 1800.5 / 1800.5 4965.5 / 4965.5 2800.6 / 2800.6 100.2 / 100.2 Output Total 1500 / 1500 5025 / 5025 3320 / 3320 Balance 300.5 / 300.5 -59.5 / -59.5 -519.4 / -519.4 100.2 / 100.2 Weight 64.4 kg 66.2 kg Laboratory Data (Last 24 Hr):: 02/27/23 03:47 Sodium 139 Potassium 3.6 Chloride 105 Carbon Dioxide 31 BUN 12 Creatinine 0.58 L Glucose 126 H Calcium 8.3 L Phosphorus 3.1 Magnesium 2.2 Nutrition Assessment:: Please refer to the Notes section of the EMR for the most recent sand analyst note. - Assessment Patient regained access for central TPN on 02/26. Chronic TPN restarted cycling over 18 hours. Tolerating. Will adjust to 16 hour cycle today as patient typically cycles over 14 hours. F: TPN cycling over 18 hours E: WNL N: Chronic TPN, BSG acceptable - Plan For day 2 of PN administration, the following will be ordered: Macronutrients Amino acids 115 grams/day Dextrose 202 grams/day Lipids 50 grams/day- MWF Micronutrients Sodium chloride 80 mEq Sodium phosphate 9 mMol Potassium acetate 60 mEq Magnesium sulfate 16.24 mEqL Trace Elements 1 mL Additional additives: Total volume 1530 mL to be infused over 16 hrs will Labs, as indicated, will be ordered per protocol Pharmacy will continue to follow and adjust parenteral nutrition orders on a daily basis. Thank you for allowing us to participate in the care of this patient.
--- NOTE | 2023-02-27 14:55 | Pain Management Progress Note ---
Date of Service February 27, 2023 Assessment & Plan (1) Intractable pain: (2) Visceral hyperalgesia: (3) Chronic, continuous use of opioids: (4) SMAS (superior mesenteric artery syndrome): (5) Uses feeding tube: (6) Epigastric abdominal pain: (7) Intestinal motility disorder: (8) Ileostomy status: (9) Gastrostomy tube in place: Plan 1. Continue to follow institutional protocol for ketamine infusion. Attempt to discontinue in an appropriate timeframe prior to discharge since the patient will not have availability of this once she is discharged. 2. Continue scheduled Cymbalta, gabapentin, methocarbamol, and fentanyl patch as ordered. 3. Continue PRN oral acetaminophen, IV lorazepam, and oral oxycodone solution as ordered. 4. Again, patient has undergone psychiatric screening, and it has been determined she does not have untreated psychopathology. Therefore, she is a candidate for a spinal cord stimulator trial. * She will need to be in an outpatient status come 03/02/2023, and will plan to proceed with spinal cord stimulator trial as planned. * Patient intends to be discharged either Wednesday 02/28 or Thursday 03/01. * A tunneled trial will be performed in order to perform a longer (2-week) trial to determine the efficacy. 5. Continue to follow blood cultures --currently continuing to trend negative/no growth. 6. PT/INR and PTT ordered to check coagulation factors for upcoming procedure. Admission and Anticipated Discharge Date Admission Date: February 24, 2023 Subjective Patient states she continues to do okay overall. The IV ketamine seems to be continuing to help with pain control. She does continue to use the oxycodone oral solution. Patient understands that her blood cultures have continued to trend negative/no growth. She plans to be discharged from the hospital either tomorrow, or Thursday at the latest. Her and her mother plan to have her at the pain management clinic on Thursday morning for her scheduled spinal cord stimulator trial procedure. Physical Exam Physical Exam: GENERAL: WN/WD, AA&Ox3, NAD. Lying in bed. Converses normally. HEAD/FACE: Normocephalic and atraumatic. EYES: No drainage or conjunctival injection. ENT: Nasal cannula in place. NECK: No swelling noted. RESPIRATORY: Patient with unlabored breathing. No signs of respiratory distress. CHEST/AXILLA: Chest movement symmetrical. SKIN: [place], warm and dry. MS/EXTREMITY: Moving extremities appropriately. NEURO: Alert and appears oriented. Speech is fluent. Cranial Nerves are grossly intact. PSYCH: Alert, pleasant, affect is calm. Constitutional: WD/WN, vitals as above no acute distress Results (Pain Clinic) Diagnostic Review Other Findings: 02/24/23 18:05 Aerobic Blood Culture - Preliminary Blood No growth in Aerobic bottle after 48 hours. Anaerobic Blood Culture - Preliminary No growth in Anaerobic bottle after 48 hours. 02/24/23 18:05 Aerobic Blood Culture - Preliminary Blood No growth in Aerobic bottle after 48 hours. Anaerobic Blood Culture - Preliminary No growth in Anaerobic bottle after 48 hours. 02/27/23 02/27/23 02/27/23 12:09 07:18 03:47 WBC 8.97 RBC 3.74 L Hgb 11.4 L Hct 34.0 L MCV 90.9 MCH 30.5 MCHC 33.5 RDW Std Deviation 41.4 RDW Coeff of Tim 12.5 Plt Count 252 MPV 11.0 Immature Gran % (Auto) 0.2 Neut % (Auto) 71.3 Lymph % (Auto) 16.2 Trigg % (Auto) 10.3 Eos % (Auto) 1.6 Baso % (Auto) 0.4 Neut # (Auto) 6.40 Lymph # (Auto) 1.45 Trigg # (Auto) 0.92 H Eos # (Auto) 0.14 Baso # (Auto) 0.04 Immature Gran # (Auto) 0.02 Sodium Potassium Chloride Carbon Dioxide Anion Gap BUN Creatinine Est Cr Clr Drug Dosing Est GFR ( Amer) Est GFR (Non-Af Amer) BUN/Creatinine Ratio Glucose POC Glucose 123 H 115 H Calcium Phosphorus Magnesium 02/27/23 02/27/23 02/26/23 03:47 01:15 17:50 WBC RBC Hgb Hct MCV MCH MCHC RDW Std Deviation RDW Coeff of Tim Plt Count MPV Immature Gran % (Auto) Neut % (Auto) Lymph % (Auto) Trigg % (Auto) Eos % (Auto) Baso % (Auto) Neut # (Auto) Lymph # (Auto) Trigg # (Auto) Eos # (Auto) Baso # (Auto) Immature Gran # (Auto) Sodium 139 Potassium 3.6 Chloride 105 Carbon Dioxide 31 Anion Gap 3 BUN 12 Creatinine 0.58 L Est Cr Clr Drug Dosing 131.6 Est GFR ( Amer) 142.4 Est GFR (Non-Af Amer) 122.8 BUN/Creatinine Ratio 20.7 H Glucose 126 H POC Glucose 86 83 Calcium 8.3 L Phosphorus 3.1 Magnesium 2.2
[2023-02-27] MEDS: [UNRECOGNIZED DRUG - REMARK] SCH (15:03)
[2023-02-27] MEDS ORDERED: KETOROLAC TROMETHAMINE 15 MG/ML VIAL IV ONE (15:18)
[2023-02-27] MEDS ORDERED: LORazepam 2 MG/1 ML VIAL IV STA ×2 (15:18→16:54)
[2023-02-27] MEDS ORDERED: ACETAMINOPHEN 1,000 MG/100 ML VIAL IV STA (15:18)
[2023-02-27] MEDS ORDERED: ONDANSETRON INJ 2 MG/ML 2 ML VIAL IV PRN (15:18)
[2023-02-27] MEDS ORDERED: ONDANSETRON INJ 2 MG/ML 2 ML VIAL IV STA ×2 (15:18→16:54)
--- NOTE | 2023-02-27 17:25 | Billing Data ---
Date of Service February 27, 2023 Coding Level of Care Code 46015 SUB INP/OBS CARE MIN
[2023-02-27 17:38] LABS: INR 1.1 (0.9-1.1); Partial Thromboplastin Ratio 0.9; Partial Thromboplastin Time 26.5 Seconds (21.0-31.0); Prothrombin Time 11.7 Seconds (9.0-12.0)
[2023-02-27] MEDS: DICYCLOMINE HCL 20 MG TAB PO SCH ×2 (18:09→23:39)
[2023-02-27] MEDS ORDERED: CENTRAL TPN IV SCH (21:00)
[2023-02-27] MEDS ORDERED: CLINOLIPID 20% IV FAT EMULSION 250 ML IV SCH (21:00)
[2023-02-27] MEDS ORDERED: [UNRECOGNIZED DRUG - OTHER] IV SCH (21:00)
[2023-02-27] MEDS: FEXOFENADINE HCL 180 MG TAB PO SCH (21:09)
[2023-02-27] MEDS: CEROVITE ADV FORMULA TAB PO SCH (21:11)
[2023-02-28] MEDS: KETAMINE HCL IV PRN ×5 (02:14→19:45)
[2023-02-28] MEDS: SODIUM CHLORIDE 0.9% IV PRN ×5 (02:14→19:45)
[2023-02-28] MEDS: ONDANSETRON INJ 2 MG/ML 2 ML VIAL IV PRN ×3 (02:14→12:23)
[2023-02-28] MEDS ORDERED: STOP CLINOLIPID SCH (03:00)
[2023-02-28] MEDS: oxyCODONE HCL SOLN 5 MG/5 ML UDC PO PRN ×5 (04:26→21:20)
[2023-02-28] MEDS: DICYCLOMINE HCL 20 MG TAB PO SCH ×4 (04:26→23:07)
[2023-02-28 05:09] LABS: Creatinine Clr Calc Pharmacy 152.6 ml/min; Est GFR (African American) 149.5 ml/min; Magnesium 2.2 mg/dl (1.7-2.4); Potassium 3.7 mmol/L (3.5-5.1)
[2023-02-28] MEDS: LORazepam 2 MG/1 ML VIAL IV PRN ×3 (06:10→21:02)
[2023-02-28] MEDS: LEVOTHYROXINE SODIUM 50 MCG TABLET PO SCH (06:11)
--- NOTE | 2023-02-28 07:57 | Hospitalist Progress Note ---
Date of Service February 28, 2023 Assessment & Plan (1) Intractable pain: (2) Visceral hyperalgesia: (3) Chronic, continuous use of opioids: (4) SMAS (superior mesenteric artery syndrome): (5) Uses feeding tube: Plan This is a 33yo Female with PMH complicated past medical history to include non- epileptic seizures, adrenal insufficiency and extensive GI history to include SMA syndrome, multiple GI surgeries with chronic, intractable abdominal pain, gastroparesis and dysmotility. She has an ostomy in place as well as a gastric tube for venting. She also receives TPN as well as night time IVF at home.Patient came to ED for concern uncontrollable abd pain. #Acute on Chronic Abdominal Pain - Plan for ketamine infusion in ICU - Pain Management consulted: Continue ketamine infusion Continue Cymbalta, Gabapentin, Methocarbamol, and Fentanyl patch Continue Acetaminophen PO, Lorazepam IV, and Oxycodone PO PRN - Plan for spinal stimulator. Will have to be done as outpatient. Procedure scheduled for Thursday. Continue pain management in the meantime. #Port inflammation - Surgery examined, not felt to be grossly infected. - Blood cultures preliminary results negative after 48 hours of growth - TPN re-started today #Adrenal Insufficiency - continue home fludrocortisone, hydrocortisone #Hypothyroidism - continue home levothyroxine FENa: TPN restarted Code Status: Full DVT PPX: SCDs PT/OT: consider if extended hospitalization Dispo: ICU for ketamine; Continue pain control, will discharge tomorrow if she remains clinically stable in order for her to get her spinal cord stimulator procedure on Thursday (03/02/2023) Admission and Anticipated Discharge Date Admission Date: February 24, 2023 Supervising Physician Co-Signing Physician Notes I personally examined the patient and verified all solorzano points of history and exam, discussed case, and agree with decision making with Dr Sarmiento nausea better than yesterday, still fairly bad. Pain still fairly badbut does seem to be a little bit better. Does debate about home today versus still waiting into tomorrow, but after discussion of risks and benefits, we both agree that probably respite from her symptoms for 1 more day will make it more viable for her to do well leading up to getting her procedure. Visceral hyperalgesiaacute flareupContinue current plan continue supportive care. Aggressive management again today. Will need to start perioperative antibiotics tomorrowMom is going to figure out exactly what was prescribed Port site irritationFortunately no signs or symptoms of infection, and cultures are negative to date. Obviously no emergency at this point time. Given how close she is to her spinal cord stimulator trial, she would prefer to hold off on any action on the porch that might interfere with getting her stimulator placed. port may need to be addressed by general surgery as an outpatient in the future, but there is no acute problem with it at this time. As far as IV access, she has her 1 working port, and a peripheral IV, so ketamine and TPN are able to both be given. Otherwise as above Subjective 33F well known to our service admitted with intractable pain. Has been on ketamine therapy in the past. Admitted to ICU for ketamine administration. Plan for spinal stimulator on Thursday of next week (03/02/23). Endorses global pain localized to the abdomen, and is having nausea. Pain marginally improved today, but still rates it 8/10 in intensity. Review of Systems Review of Systems: As per HPI. Physical Exam Physical Exam: General: Alert. Oriented to person, time, and place. Afebrile. In pain. No acute distress. Cardiac: Regular rate and rhythm, no murmurs/rubs/gallops. Respiratory: Clear to auscultation bilaterally a/p, no wheezes/rales/rhonchi. No increased work of breathing. Symmetrical chest rise. No respiratory distress. Abdomen: Soft, diffuse tenderness, nondistended. JG tube in place. Ostomy in place. Lower Extremities: No lower extremity edema or swelling. No deep calf pain. Damaris's negative bilaterally. Results & Data Results & Data Vital Signs (Past 12 Hours) Vital Signs Temp Pulse Resp BP Pulse Ox O2 Del Method 02/28/23 06:43 91 H 13 115/86 93 Room Air 02/28/23 06:38 85 13 118/84 94 Room Air 02/28/23 06:33 109 H 13 114/79 94 Room Air 02/28/23 07:00 68 15 96 02/28/23 07:00 116/82 02/28/23 06:50 119/80 02/28/23 06:50 65 14 95 02/28/23 06:45 128/84 02/28/23 06:45 66 10 L 96 02/28/23 06:40 115/86 02/28/23 06:40 84 13 96 02/28/23 06:35 118/84 02/28/23 06:35 85 14 96 02/28/23 06:30 114/79 02/28/23 06:30 95 H 13 96 02/28/23 06:25 137/91 02/28/23 06:25 87 13 97 02/28/23 06:00 112 H 12 96 02/28/23 06:00 118/88 02/28/23 05:00 66 19 95 02/28/23 05:00 122/81 02/28/23 04:00 73 17 95 02/28/23 04:00 118/82 02/28/23 03:00 70 16 95 02/28/23 03:00 114/79 02/28/23 02:41 119/82 02/28/23 02:41 73 12 95 02/28/23 02:40 72 15 95 02/28/23 02:40 111/81 02/28/23 02:35 118/79 02/28/23 02:35 72 15 95 02/28/23 02:30 109 H 19 98 02/28/23 02:30 117/85 02/28/23 02:25 103/73 02/28/23 02:25 84 15 96 02/28/23 02:20 106/70 02/28/23 02:20 85 14 96 02/28/23 02:15 79 8 L 96 02/28/23 02:15 105/67 02/28/23 02:14 81 9 L 95 02/28/23 02:14 104/69 02/28/23 02:00 98 H 11 L 94 02/28/23 01:00 78 11 L 96 02/28/23 01:00 100/74 02/28/23 00:00 86 7 L 97 02/28/23 00:00 101/70 02/28/23 06:28 85 13 137/91 95 Room Air 02/28/23 02:30 36.5 C 87 13 117/85 94 Room Air 02/28/23 02:25 36.5 C 83 13 103/73 96 Room Air 02/28/23 02:20 36.5 C 87 14 106/70 96 Room Air 02/28/23 02:14 36.5 C 80 9 L 104/69 94 Room Air 02/28/23 00:00 93 H 02/27/23 23:00 88 14 95 02/27/23 23:00 110/79 02/27/23 22:05 85 12 95 02/27/23 22:05 112/81 02/27/23 22:00 99 H 12 96 02/27/23 22:00 107/79 02/27/23 21:55 113/80 02/27/23 21:55 94 H 15 96 02/27/23 21:50 105/75 02/27/23 21:50 85 9 L 96 02/27/23 21:47 105 H 12 94 02/27/23 21:47 114/78 02/27/23 21:45 36.5 C 121 H 11 L 114/78 92 Room Air 02/27/23 22:00 36.5 C 85 10 L 107/79 95 Room Air 02/27/23 21:55 36.5 C 96 H 13 113/80 96 Room Air 02/27/23 21:50 36.5 C 104 H 8 L 105/75 96 Room Air 02/27/23 21:00 87 15 94 02/27/23 21:00 108/75 02/27/23 20:00 85 16 95 02/27/23 20:00 108/70 02/27/23 20:00 85 Resident Activity Tracking Resident Involvement: Resident Care Provided Care Provided: Adult Hospital Medicine
[2023-02-28] MEDS: FLUDROCORTISONE ACETATE 0.1 MG TAB PO SCH ×2 (08:24→20:53)
[2023-02-28] MEDS: PYRIDOXINE HCL 50 MG TAB PO SCH (08:24)
[2023-02-28] MEDS: METHOCARBAMOL 750 MG TABLET PO SCH ×3 (08:24→20:52)
[2023-02-28] MEDS: PANTOprazole 40 MG TAB PO SCH (08:25)
[2023-02-28] MEDS: HYDROCORTISONE 10 MG TAB PO SCH ×2 (08:25→17:00)
[2023-02-28] MEDS: FAMOTIDINE 20 MG TAB PO SCH ×2 (08:27→20:53)
[2023-02-28] MEDS: CHOLECALCIFEROL 1,000 UNITS 25 MCG TAB PO SCH (08:27)
[2023-02-28] MEDS: DULoxetine HCL 60 MG CAP PO SCH (08:27)
[2023-02-28] MEDS: fentaNYL 75 MCG/HR TDSY TD SCH (08:28)
[2023-02-28] MEDS: CHECK fentaNYL PATCH PLACEMENT SCH ×3 (08:36→23:20)
[2023-02-28] MEDS: GABAPENTIN 250 MG/5 ML 470 ML BTL PO SCH ×3 (09:46→20:55)
--- NOTE | 2023-02-28 12:11 | Critical Care Progress Note ---
Date of Service February 28, 2023 Assessment & Plan (1) Generalized abdominal pain: Plan: Requiring ICU level monitoring per institutional guidelines with ketamine infusion for pain control -Pain management following -Hospitalist team primary -Vascular access issues managed between general surgery and vascular surgery. -Patient has been tolerating low-dose IV bolus ketamine no longer on infusion for several days -Per institutional policy continuation of ketamine bolus to be initiated in ICU; however, only infusion requires continuation in ICU: - Ketamine IV bolus or infusion: Requires initiation in ED, ICU, ASU, OR or PACU level care. Ketamine IV infusion: Requires admission to ICU level of care for continuation outside of the ED, ASU, OR or PACU. Nursing is to follow Low Dose Ketamine IV for Pain policy [id number] for administration [email or web address] Patient meets criteria for downgrade, critical care will sign off (2) Chronic, continuous use of opioids: (3) Visceral hyperalgesia: (4) Intractable pain: Admission and Anticipated Discharge Date Admission Date: February 24, 2023 Subjective Mother reports patient had rough nights, awaiting procedure Thursday. Physical Exam Physical Exam: General: Alert. nontoxic. Skin: Warm, dry, Head: Atraumatic Ears, nose, mouth and throat: airway patent Cardiovascular: Normal peripheral perfusion Respiratory: no respiratory distress Gastrointestinal: Non distended Musculoskeletal: No deformity Results & Data Results & Data Vital Signs (Past 12 Hours) Vital Signs Temp Pulse Resp BP Pulse Ox O2 Del Method 02/28/23 06:43 91 H 13 115/86 93 Room Air 02/28/23 06:38 85 13 118/84 94 Room Air 02/28/23 06:33 109 H 13 114/79 94 Room Air 02/28/23 07:00 68 15 96 02/28/23 07:00 116/82 02/28/23 06:50 119/80 02/28/23 06:50 65 14 95 02/28/23 06:45 128/84 02/28/23 06:45 66 10 L 96 02/28/23 06:40 115/86 02/28/23 06:40 84 13 96 02/28/23 06:35 118/84 02/28/23 06:35 85 14 96 02/28/23 06:30 114/79 02/28/23 06:30 95 H 13 96 02/28/23 06:25 137/91 02/28/23 06:25 87 13 97 02/28/23 06:00 112 H 12 96 02/28/23 06:00 118/88 02/28/23 05:00 66 19 95 02/28/23 05:00 122/81 02/28/23 04:00 73 17 95 02/28/23 04:00 118/82 02/28/23 03:00 70 16 95 02/28/23 03:00 114/79 02/28/23 02:41 119/82 02/28/23 02:41 73 12 95 02/28/23 02:40 72 15 95 02/28/23 02:40 111/81 02/28/23 02:35 118/79 02/28/23 02:35 72 15 95 02/28/23 02:30 109 H 19 98 02/28/23 02:30 117/85 02/28/23 02:25 103/73 02/28/23 02:25 84 15 96 02/28/23 02:20 106/70 02/28/23 02:20 85 14 96 02/28/23 02:15 79 8 L 96 02/28/23 02:15 105/67 02/28/23 02:14 81 9 L 95 02/28/23 02:14 104/69 02/28/23 02:00 98 H 11 L 94 02/28/23 01:00 78 11 L 96 02/28/23 01:00 100/74 02/28/23 06:28 85 13 137/91 95 Room Air 02/28/23 02:30 36.5 C 87 13 117/85 94 Room Air 02/28/23 02:25 36.5 C 83 13 103/73 96 Room Air 02/28/23 02:20 36.5 C 87 14 106/70 96 Room Air 02/28/23 02:14 36.5 C 80 9 L 104/69 94 Room Air Coding Level of Care Code 52297 SUB INP/OBS CARE 06/11MIN Diagnoses Generalized abdominal pain R10.84 Chronic, continuous use of opioids F11.90 Visceral hyperalgesia R19.8 Intractable pain R52
[2023-02-28] MEDS ORDERED: [UNRECOGNIZED DRUG - REMARK] SCH (13:00)
[2023-02-28] MEDS ORDERED: ACETAMINOPHEN 1,000 MG/100 ML VIAL IV STA (17:34)
[2023-02-28] MEDS ORDERED: ONDANSETRON INJ 2 MG/ML 2 ML VIAL IV STA (17:34)
[2023-02-28] MEDS ORDERED: LORazepam 2 MG/1 ML VIAL IV STA (17:34)
[2023-02-28] MEDS ORDERED: KETOROLAC TROMETHAMINE 15 MG/ML VIAL IV ONE (17:34)
--- NOTE | 2023-02-28 19:52 | Billing Data ---
Date of Service February 28, 2023 Coding Level of Care Code 29417 SUB INP/OBS CARE 3MIN
[2023-02-28] MEDS: BETHANECHOL CHL 25 MG TAB PO PRN (20:53)
[2023-02-28] MEDS: FEXOFENADINE HCL 180 MG TAB PO SCH (20:53)
[2023-02-28] MEDS: CEROVITE ADV FORMULA TAB PO SCH (20:54)
[2023-02-28] MEDS ORDERED: CENTRAL TPN IV SCH (21:00)
[2023-02-28] MEDS ORDERED: [UNRECOGNIZED DRUG - OTHER] IV SCH (21:00)
[2023-03-01] MEDS: LORazepam 2 MG/1 ML VIAL IV PRN ×4 (00:24→10:49)
[2023-03-01] MEDS: KETAMINE HCL IV PRN ×3 (00:24→09:25)
[2023-03-01] MEDS: ONDANSETRON INJ 2 MG/ML 2 ML VIAL IV PRN ×2 (00:24→06:46)
[2023-03-01] MEDS: SODIUM CHLORIDE 0.9% IV PRN ×3 (00:24→09:25)
[2023-03-01] MEDS: oxyCODONE HCL SOLN 5 MG/5 ML UDC PO PRN ×3 (03:26→12:30)
[2023-03-01] MEDS: DICYCLOMINE HCL 20 MG TAB PO SCH ×2 (04:39→11:24)
[2023-03-01 05:17] LABS: Anion Gap 2 (3-11); BUN Creatinine Ratio 42.9 (10-20); Blood Urea Nitrogen 21 mg/dl (6-23); Carbon Dioxide 29 mmol/L (21-32); Chloride 109 mmol/L (98-107); Creatinine Clr Calc Pharmacy 155.7 ml/min; Est GFR (African American) > 150.0 ml/min; Est GFR (Non-African American) 129.8 ml/min; Glucose 135 mg/dl (70-99(Fasting)); Magnesium 2.1 mg/dl (1.7-2.4); Phosphorus 3.2 mg/dl (2.5-4.9); Potassium 3.8 mmol/L (3.5-5.1); Sodium 140 mmol/L (136-145)
[2023-03-01] MEDS: LEVOTHYROXINE SODIUM 50 MCG TABLET PO SCH (06:43)
[2023-03-01] MEDS: CHECK fentaNYL PATCH PLACEMENT SCH (08:56)
[2023-03-01] MEDS: CHOLECALCIFEROL 1,000 UNITS 25 MCG TAB PO SCH (09:09)
[2023-03-01] MEDS: PYRIDOXINE HCL 50 MG TAB PO SCH (09:09)
[2023-03-01] MEDS: HYDROCORTISONE 10 MG TAB PO SCH (09:10)
[2023-03-01] MEDS: FLUDROCORTISONE ACETATE 0.1 MG TAB PO SCH (09:10)
[2023-03-01] MEDS: PANTOprazole 40 MG TAB PO SCH (09:11)
[2023-03-01] MEDS: FAMOTIDINE 20 MG TAB PO SCH (09:11)
[2023-03-01] MEDS: METHOCARBAMOL 750 MG TABLET PO SCH ×2 (09:11→13:15)
[2023-03-01] MEDS: DULoxetine HCL 60 MG CAP PO SCH (09:12)
[2023-03-01] MEDS: GABAPENTIN 250 MG/5 ML 470 ML BTL PO SCH ×2 (09:16→13:15)
[2023-03-01] MEDS ORDERED: cephALEXin 500 MG CAP PO SCH (10:15)
--- NOTE | 2023-03-01 10:20 | Discharge Summary ---
Date of Service March 01, 2023 Admission HPI Per Admitting Provider This is a 33yo Female with PMH complicated past medical history to include non- epileptic seizures, adrenal insufficiency and extensive GI history to include SMA syndrome, multiple GI surgeries with chronic, intractable abdominal pain, gastroparesis and dysmotility. She has an ostomy in place as well as a gastric tube for venting. She also receives TPN as well as night time IVF at home. Patient came to ED for concern uncontrollable abd pain starting midnight, per mom it felt like intusseception. She took her home pain medication without relief. Patient also describes 4 pain seizures prior to coming to the hospital, and 1 in the ED. At this time she is crying in bed with a towel over her eyes, describes ongoing abd pain nausea, some baseline difficulty with urination. Patient denies fever SOB chest pain, describes normal drainage from colostomy.. Patient denies any change in routine yesterday, no change in medications. In the ED patient received ketorolac 15mg fentanyl 200mcg tylenol 1 g NSS 1L zofran 4mg with some relief in abd pain. Patient has been following with pain management in outpatient, plan for spinal stimulator next thursday and would like to be out of hospital by then. Admission Exam Per Admitting Provider Constitutional: well developed, well nourished, + acute distress and cooperative ENMT: external ear and nose normal, oropharynx normal Neck: trachea midline, no thyromegaly Respiratory: normal respiratory effort, lungs clear to auscultation Cardiovascular: RRR, no murmur, no edema Gastrointestinal (Abdomen): Percussion/Palpation: + abdomen tender and abdomen soft noted colostomy and G tube, no surrounding erythema/exudate noted Skin: no rashes, warm and dry Principal Diagnosis Acute on Chronic abdominal pain Discharge Exam General: Alert. Oriented to person, time, and place. Afebrile. In pain. No acute distress. Cardiac: Regular rate and rhythm, no murmurs/rubs/gallops. Respiratory: Clear to auscultation bilaterally a/p, no wheezes/rales/rhonchi. No increased work of breathing. Symmetrical chest rise. No respiratory distress. Abdomen: Soft, diffuse tenderness, nondistended. JG tube in place. Ostomy in place. Integumentary: warm, pink,dry. Left anterior chest port covered by bandage, but no surrounding erythema. Lower Extremities: No lower extremity edema or swelling. No deep calf pain. Damaris's negative bilaterally. Discharge Data Allergies Allergy/AdvReac Type Severity Reaction Status Date / Time diphenhydramine Allergy Severe Anaphylaxis Verified 02/17/23 14:21 promethazine Allergy Severe hives, Verified 02/17/23 14:21 throat swelling adhesive Allergy Intermediate Redness of Verified 02/17/23 14:21 Skin amoxicillin Allergy Intermediate RASH Verified 02/17/23 14:21 calcium Allergy Intermediate SEE COMMENT Verified 02/17/23 14:21 [From VIACTIV Multi-Vitamin] cefazolin Allergy Intermediate rash Verified 03/01/23 10:29 Cephalosporins Allergy Intermediate HIVES Verified 03/01/23 10:29 clavulanic acid Allergy Intermediate HIVES Verified 02/17/23 14:21 ferric carboxymaltose Allergy Intermediate Rash Verified 02/17/23 14:21 [From Injectafer] folic acid Allergy Intermediate SEE COMMENT Verified 02/17/23 14:21 [From VIACTIV Multi-Vitamin] iron [From Venofer] Allergy Intermediate Muscle Pain Verified 02/17/23 14:21 multivitamin with minerals Allergy Intermediate SEE COMMENT Verified 02/17/23 14:21 [From VIACTIV Multi-Vitamin] Penicillins Allergy Intermediate HIVES Verified 02/17/23 14:21 prochlorperazine Allergy Intermediate HIVES Verified 02/17/23 14:21 sulfamethoxazole Allergy Intermediate RASH Verified 02/17/23 14:21 sumatriptan Allergy Intermediate RASH Verified 02/17/23 14:21 trimethoprim Allergy Intermediate RASH Verified 02/17/23 14:21 metoclopramide AdvReac Severe anxiety/ Verified 02/17/23 14:21 jittery morphine AdvReac Severe Severe Verified 02/17/23 14:21 abdominal Pain, sphincter of oddi spasms erythromycin base AdvReac Intermediate GI SYMPTOMS Verified 02/17/23 14:21 citalopram [From Celexa] AdvReac Unknown CAN'T Verified 02/17/23 14:21 REMEMBER Consultations 02/24/23 04:54 ED Decision to Admit Stat 02/24/23 05:28 Consult Pain Management Routine 02/24/23 08:36 Consult Gaming Manager Routine 02/24/23 17:02 Consult General Surgery Routine Hospital Course (1) Intractable pain: (2) Visceral hyperalgesia: (3) Chronic, continuous use of opioids: (4) SMAS (superior mesenteric artery syndrome): (5) Uses feeding tube: Plan This is a 33yo Female with PMH complicated past medical history to include non- epileptic seizures, adrenal insufficiency and extensive GI history to include SMA syndrome, multiple GI surgeries with chronic, intractable abdominal pain, gastroparesis and dysmotility. She has an ostomy in place as well as a gastric tube for venting. She also receives TPN as well as night time IVF at home.Patient came to ED for concern uncontrollable abd pain. #Acute on Chronic Abdominal Pain (Chronic, acute exacerbation) - Pain managed with Ketamine, Fentanyl, Cymbalta, Gabapentin, Methocarbamol, and Fentanyl patch, as well as Acetaminophen PO, Lorazepam IV, and Oxycodone PO as needed - Pain to f/u as an outpatient with pain management clinic - Discharge today for spinal stimulator placement as an outpatient. Ordered pre-op Keflex 500 mg BID. Patient's mother states she has taken this medication in the past without any allergic reactions. #Port inflammation (Acute, not complicated) - Surgery examined, not felt to be grossly infected. - Blood cultures preliminary results negative after 48 hours of growth - May f/u as an outpatient with general surgery clinic for evaluation and further management is needed. #Adrenal Insufficiency (Chronic, stable) - continue home fludrocortisone, hydrocortisone after discharge #Hypothyroidism (Chronic, stable) - continue home levothyroxine after discharge Patient evaluated today and found to be hemodynamically stable. Although her pain and nausea is not fully controlled given it is chronic in nature, will discharge her today for her spinal stimulator procedure which is scheduled for tomorrow. All questions were answered. Total Time Total Time Spent Total Time Spent (In Minutes): <30 Discharge Plan Discharge Items Patient Disposition: Home - Self-Care Reason For Visit: ABD PAIN Discharge Diagnosis: Acute on Chronic abdominal pain Activity: Per Instructions section Non-emergency contact: Primary Care Provider Call non-emergency contact if: your symptoms worsen and your temperature is above 101 Follow-up/Referrals: Mariah Addison DO [Primary Care Provider] - Diet: Regular Addtl Attending Provider Instructions: You were admitted to the hospital for management of your abdominal pain. You were treated with various pain medications including Fentanyl, Ketamine, Gabapentin, Methocarbamol, and Oxycodone. We provided this regimen for pain control, and are discharging you today so you may get your spinal stimulator placed tomorrow (03/02/2023). Pre-procedure antibiotics (Cephalexin 500mg bid) was also given in the hospital before your discharge. A discharge summary will be sent to your primary care physician to ensure continuity of care. Please bring this discharge summary with you to your next office appointment so that your provider can review it at that time. With regards to your port site, given that is has become irritated, but without observable signs of infection, we recommend that you follow up as an outpatient with General Surgery to have it evaluated to see if further management is needed. Fortunately, your blood cultures have remained negative for bacterial growth, and your port does not seem to be infected, and so we believe this is not something that requires immediate attention during this admission. Follow-up appointments: Make a follow-up appointment with your PCP within the next week. It is very important that you follow up with them shortly after discharge from the hospital. Keep all your follow-up appointments as already scheduled. If you cannot make an appointment, notify your provider. Medications: Your medication list has been reviewed and reconciled upon discharge to ensure accuracy and continuity of care. An updated list of all your medications is included with your hospital discharge paperwork. Please review this list closely, and make note of any changes. If you have any issues filling these prescriptions, please call [phone] and ask to leave a message for Dr. Sarmiento. Take your medications as instructed; do not skip a dose of your medicines. Make sure all of your doctors know every medicine you are taking (including [id number]-vynqyxx medicines, vitamins, and supplements). Call your primary care provider before taking any new medicines (including over- the-counter medicines, vitamins, and supplements), because some of these may interact with your current medications, or may make your symptoms worse. Tell your primary care provider if you cannot afford your medications. CONTACT YOUR PRIMARY CARE PROVIDER if you experience any of the following: Worsening of symptoms Fever, chills, or fatigue Difficulty following your treatment plan, or difficulty taking medications CALL 911 OR GO TO THE EMERGENCY DEPARTMENT if you experience any of the following: Sudden, severe abdominal pain or nausea/vomiting Severe chest pain, or chest pain that radiates (moves) to your jaw or arm Sudden, severe shortness of breath or difficulty breathing Thank you for allowing us to participate in your care. Pending Studies at Discharge: No Stand-Alone Forms: My [facility], Smoking Cessation Medications and DC Order Prescriptions: Continued pyridoxine (vitamin B6) 50 mg tablet 50 mg PO DAILY diazepam 5 mg tablet 5 mg PO .COMPLEX Qty: 3 0RF Rx Instructions: 5 mg PO 1 PO qhs night prior, then 1.5 hours before procedure, then may repeat 0.5 hours prior to procedure; famotidine 40 mg tablet 20 mg PO BID Rx Instructions: 1/2 tablet dose hydrocortisone 10 mg tablet 0 mg PO BID Hold Instructions: Resume on 10/27/22. Please take hydrocortisone 25mg in the morning and 20mg in the afternoon until your thursday followup with endocrinology Rx Instructions: TAKE 15 MG EVERY MORNING AND 10 MG EVERY AFTERNOON dicyclomine 10 mg Capsule 10 - 20 mg PO Q6H PRN (Reason: Abdominal Pain) pantoprazole [Protonix] 40 mg tablet,delayed release (DR/EC) 40 mg PO QAM fexofenadine 180 mg Tablet 180 mg PO PM methocarbamol 750 mg Tablet 750 mg PO TID cholecalciferol (vitamin D3) [Vitamin D3] 25 mcg (1,000 unit) Capsule 50 mcg PO DAILY duloxetine 60 mg capsule,delayed release(DR/EC) 60 mg PO DAILY ondansetron 8 mg tablet,disintegrating 8 mg PO TID PRN (Reason: Nausea) fentanyl 75 mcg/hr patch 72 hour 1 patch transdermal Q72H Qty: 10 0RF lorazepam [Ativan] 2 mg/mL Solution 0.5 mg buccal QID PRN (Reason: Nausea) Qty: 100 0RF Rx Instructions: DIRECTED 0.5 MG (0.25 ML) oxycodone 5 mg/5 mL solution 5 mg PO Q4H PRN (Reason: pain) Qty: 250 0RF levothyroxine [Synthroid] 50 mcg tablet 50 mcg PO DAILY Qty: 30 0RF bethanechol chloride 25 mg Tablet 12.5 mg PO BID PRN (Reason: urinary retention) Qty: 20 0RF gabapentin 250 mg/5 mL Solution 600 mg PO TID Qty: 250 0RF fludrocortisone 0.1 mg tablet 0.1 mg PO BID acetaminophen [Tylenol Extra Strength] 500 mg Tablet 1,000 mg PO Q6H PRN (Reason: Pain) Multivitamin Gummies 200 mcg Tablet,Chewable 2 tab PO PM turmeric 400 mg Capsule 400 mg PO PM Rx Instructions: Takces 1 cap daily coenzyme Q10 [CoQ-10] 100 mg capsule 100 mg PO PM Rx Instructions: Takes 1 tab daily UNKNOWN STRENGTH (DME) Enema Bottle Bottle See Rx Instructions .Route Qty: 72 0RF Rx Instructions: As directed Discharge Orders: Discharge Order (Routine); Ordered 03/01/23 Ordered By: Josie Zuniga/Other Patient Handouts: Abdominal Pain, Understanding the Pain Response, Measuring Your Pain, Anatomy of the Digestive System Admission Data Admit Date/Time: 02/24/23 05:18 Attending Provider: Ramses Layne Admit Provider: Yadira Velazquez Primary Care Provider: Mariah Addison Other Providers: Dioni Kumar ; Jose De Jesus Hawkins ; Candido Cross ; Dawson Geiger Other Interventions: Discharge Summary Assessment (RN) Last Done: 03/01/23 13:45 Supervising Physician Co-Signing Physician Notes I personally examined the patient and verified all solorzano points of history and exam, discussed case, and agree with decision making with Dr Sarmiento Pain still fairly bad but somewhat tolerable. Nausea persists. While she does not feel good, she feels good enough to try to get home so that she can make it to her procedure tomorrow. while she does not feel good, she feels good enough to try to get home so that she can make it to her procedure tomorrow. General surgery reevaluated her port sitestill does not feel there is an infection, but does feel it is probably not going to be viable for long. Visceral hyperalgesiaacute flareupCautiously trying to get her home for trial of spinal cord stimulator tomorrow. While she is not yet back to baseline, I will note that her pain did seem to be improving faster on the current regimen with ketamine for pain, and aggressive use of Zofran plus Ativan together for nausea, then prior admissions. Port site irritationFortunately no signs or symptoms of infection, and cultures are negative to date. Obviously no emergency at this point time. Given how close she is to her spinal cord stimulator trial, she would prefer to hold off on any action on the port that might interfere with getting her stimulator placed. port will need to be addressed by general surgery as an outpatient in the future, but there is no acute problem with it at this time. given that this skin does appear more thin, she has a dressing on it, she will not be using that port, she will keep an eye on things, certainly if anything erodes through she knows to proceed to the hospital right away. Otherwise right now it has not eroded through, there is no infection, so we are simply looking at it as a risk issue rather than an acute issueand I have asked for our nurse navigator to get her set up with her general surgeon in the near future to evaluate the portand really whether or not she still needs that we will have a lot to do with how much the spinal cord stimulator improves her pain. The main reason she ended up with 2 ports was that she was in the hospital often enough that it was no longer viable to get peripheral IVs or even PICC lines, and with her need for TPN, as well as her need when she is acutely in pain for other IV medicines being incompatiblewe needed to reliable IVs very frequently. If her pain improves enough, it might be viable to simply remove the newly placed/second port and be done with that, and at the same time if she ends up having enough pain that she may require ongoing simultaneous IV access, then it would probably be vascular surgery evaluation once the soon-to-be nonviable port is removed. Otherwise as above Resident Activity Tracking Resident Involvement: Resident Care Provided Care Provided: Adult Hospital Medicine
[2023-03-01] MEDS ORDERED: HEPARIN 100 UNIT/ML 5ML FLUSH FLUSH PRN (11:51)
[2023-03-01] MEDS ORDERED: ONDANSETRON INJ 2 MG/ML 2 ML VIAL IV STA (13:14)
[2023-03-01] MEDS ORDERED: LORazepam 2 MG/1 ML VIAL IV STA (13:14)
--- NOTE | 2023-03-01 18:13 | Billing Data ---
Date of Service March 01, 2023 Coding Level of Care Code 53102 IN/OBS DISCH 30 MIN/LESS
== END 2023-03-01 14:36 | disposition home or self-care (01) | DRG 392 ==
LOC: ED 03:42 → 1E 05:18 → SUATTDRO 05:18 → 1E 08:00

== ENCOUNTER 2023-03-10 13:45 | Inpatient (IN) ==
[2023-03-10] MEDS ORDERED: CIPROFLOXACIN / D5W 400 MG/200 ML BAG IV STA (14:42)
[2023-03-10] MEDS ORDERED: DAPTOmycin 350 MG in SYRINGE 0 ML IV SCH (14:45)
[2023-03-10] MEDS ORDERED: SODIUM CHLORIDE 0.9% IV ONE (14:46)
[2023-03-10] MEDS ORDERED: KETAMINE HCL IV ONE (14:46)
--- NOTE | 2023-03-10 15:16 | Emergency Department Note ---
ED Provider Note History of Present Illness Chief Complaint: Seizure Stated Complaint: SEIZURE Time Seen by Provider: 03/10/23 14:20 Source: patient Mode of arrival: EMS Limitations: no limitations This patient is a 33-year-old female who presents to the emergency department via EMS for evaluation of an infected port. Patient had her port removed this past week due to suspected infection and was contacted today and told that her cultures were positive and she needed admission for IV antibiotics. She reports she has had multiple seizures today due to her pain. She is having pain in her chest and abdomen. She states that she has had chills and feels feverish today. Home Medications Medication Instructions Recorded Confirmed Type dicyclomine 10 mg capsule 20 mg PO Q6H PRN Abdominal Pain 03/07/18 03/10/23 History pantoprazole 40 mg tablet,delayed 40 mg PO QAM 09/08/19 03/10/23 History release (Protonix) famotidine 40 mg tablet 20 mg PO BID 11/28/19 03/10/23 History hydrocortisone 10 mg tablet See Rx Instructions .Route .COMPLEX 02/07/20 03/10/23 History fexofenadine 180 mg tablet 180 mg PO HS 10/09/20 03/10/23 History fludrocortisone 0.1 mg tablet 0.1 mg PO BID 12/12/20 03/10/23 History acetaminophen 500 mg tablet 1,000 mg PO Q6H PRN Pain 06/13/21 03/10/23 History (Tylenol Extra Strength) multivitamin with minerals-folic 2 tab PO HS 06/13/21 03/10/23 History acid 200 mcg chewable tablet (Multivitamin Gummies) turmeric 400 mg capsule 400 mg PO HS 06/13/21 03/10/23 History empty container (Enema Misc Bottle) #72 ea 01/16/22 03/06/23 Rx cholecalciferol (vitamin D3) 25 50 mcg PO QAM 04/07/22 03/10/23 History mcg (1,000 unit) capsule (Vitamin D3) duloxetine 60 mg capsule,delayed 60 mg PO QAM 04/07/22 03/10/23 History release methocarbamol 750 mg tablet 750 mg PO TID 04/07/22 03/10/23 History coenzyme Q10 100 mg capsule 100 mg PO PM 07/22/22 03/10/23 History (CoQ-10) pyridoxine (vitamin B6) 50 mg 50 mg PO QAM 07/22/22 03/10/23 History tablet ondansetron 8 mg disintegrating 8 mg PO TID PRN Nausea 10/06/22 03/10/23 History tablet fentanyl 75 mcg/hr transdermal 1 patch transdermal Q72H #10 ea 10/23/22 03/10/23 Rx patch lorazepam 2 mg/mL injection 0.5 mg (0.25 mL) buccal QID PRN 12/04/22 03/10/23 Rx solution (Ativan) Nausea #100 mL bethanechol chloride 25 mg tablet 12.5 mg PO BID PRN urinary 12/05/22 03/10/23 Rx retention #20 tabs oxycodone 5 mg/5 mL oral solution 5 mg (5 mL) PO Q4H PRN pain #250 mL 12/05/22 03/10/23 Rx levothyroxine 50 mcg tablet 50 mcg PO QAM 03/04/23 03/10/23 History (Synthroid) calcium 250 mg tablet 250 mg PO PM 03/05/23 03/10/23 History gabapentin 250 mg/5 mL oral 900 mg PO TID 03/10/23 03/10/23 History solution Allergies Allergy/AdvReac Type Severity Reaction Status Date / Time diphenhydramine Allergy Severe Anaphylaxis Verified 03/10/23 15:13 promethazine Allergy Severe hives, Verified 03/10/23 15:13 throat swelling adhesive Allergy Intermediate Redness of Verified 03/10/23 15:13 Skin amoxicillin Allergy Intermediate RASH Verified 03/10/23 15:13 calcium Allergy Intermediate SEE COMMENT Verified 03/10/23 15:13 [From VIACTIV Multi-Vitamin] cefazolin Allergy Intermediate rash Verified 03/10/23 15:13 Cephalosporins Allergy Intermediate HIVES Verified 03/10/23 15:13 clavulanic acid Allergy Intermediate HIVES Verified 03/10/23 15:13 ferric carboxymaltose Allergy Intermediate Rash Verified 03/10/23 15:13 [From Injectafer] folic acid Allergy Intermediate SEE COMMENT Verified 03/10/23 15:13 [From VIACTIV Multi-Vitamin] iron [From Venofer] Allergy Intermediate Muscle Pain Verified 03/10/23 15:13 multivitamin with minerals Allergy Intermediate SEE COMMENT Verified 03/10/23 15:13 [From VIACTIV Multi-Vitamin] Penicillins Allergy Intermediate HIVES Verified 03/10/23 15:13 prochlorperazine Allergy Intermediate HIVES Verified 03/10/23 15:13 sulfamethoxazole Allergy Intermediate RASH Verified 03/10/23 15:13 sumatriptan Allergy Intermediate RASH Verified 03/10/23 15:13 trimethoprim Allergy Intermediate RASH Verified 03/10/23 15:13 metoclopramide AdvReac Severe anxiety/ Verified 03/10/23 15:13 jittery morphine AdvReac Severe Severe Verified 03/10/23 15:13 abdominal Pain, sphincter of oddi spasms erythromycin base AdvReac Intermediate GI SYMPTOMS Verified 03/10/23 15:13 citalopram [From Celexa] AdvReac Unknown CAN'T Verified 03/10/23 15:13 REMEMBER Past Med/Surg History Medical History Abdominal pain Asthma Chronic migraine Chronic, continuous use of opioids Colitis Dehydration "kind of always dehydrated" Diversion colitis Elevated lipase Endometriosis has had 3 surgeries for this. 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 Hypotension Intussusception hx Nausea Pancreatitis hx PICC (peripherally inserted central catheter) in place TPN POTS (postural orthostatic tachycardia syndrome) f/u dr. carroll, psychiatric SMAS (superior mesenteric artery syndrome) History of SMAS Sphincter of Oddi dysfunction DECREASED GI MOTILITY Spinal cord stimulator status trial implanted 03/02/23, in dr. ramírez's office>advised to bring remote Transaminitis Uses feeding tube gastroparesis and decreased GI motility can not tolerate feeding and uses TPN Surgical History H/O adenoidectomy H/O laparoscopy H/O lumpectomy right breast 2011 History of appendectomy History of bowel resection Part of duodenum removed due to necrosis; done at [facility] 2019 History of esophagogastroduodenoscopy (EGD) History of hysterectomy 09/27/19 History of removal of Port-a-Cath 10/13/[address] Geiger, [facility], due to bacteremia/sepsis.; "inserted and removed multiple times" History of vascular access device 2018; implanted and removed "several" times Hx of colonoscopy during procedure perforated small bowel 10/27/2019 at the [facility], subsequent repair of duodenal area. Hx of ileostomy Hx of tonsillectomy S/P cholecystectomy 2015 S/P wrist surgery right Family History Father Hyperlipidemia Other No significant family history Social History Smoking Status: Never smoker Second Hand Exposure: No; Do You Dip or Chew Tobacco: No; Hx Alcohol Use: No Hx Substance Use: No Preferred Language: Malian Communication Ability: Effective Visual Impairment: No Limitations Hearing Ability: Normal Surgical Technician Required: No Beliefs That Will Affect Care: None marital status: Single Current Living Situation: Parent and Family Current Living Situation Comment: Patient lives at home with both parents current occupational status: unemployed current occupation: completed 4-year degree at [employer] How many Children do You have: 0 Feels Safe at Home: Yes Diet: regular Sexual Activity Comment: not sexually active Assistive Devices: Wheelchair Physical Exam Vital Signs Vital Signs - 24 hr 03/10/23 13:49 03/10/23 15:10 03/10/23 15:48 Temperature 36.7 C Temperature Source Oral Pulse Rate 80 Pulse Rate [Right Finger] 63 Pulse Rhythm [Right Finger] Pulse Strength [Right Finger] Respiratory Rate 21 16 Respiratory Effort / Characteristics Non-Labored Spontaneous Respiratory Depth Normal Blood Pressure 104/78 Blood Pressure [Left Arm] 109/76 Blood Pressure Mean 86 Blood Pressure Mean [Left Arm] 87 Pulse Oximetry 97 97 96 Oxygen Delivery Method Room Air Room Air Sepsis Recent Fever Within 48 Hours No Sepsis New/Unexplained Change in Mental Status No Sepsis Action Taken by Nursing No Action Required 03/10/23 16:09 03/10/23 16:45 03/10/23 17:04 Temperature Temperature Source Pulse Rate Pulse Rate [Right Finger] 64 70 Pulse Rhythm [Right Finger] Regular Regular Pulse Strength [Right Finger] Normal Normal Respiratory Rate 16 16 Respiratory Effort / Characteristics Non-Labored Spontaneous Non-Labored Spontaneous Respiratory Depth Normal Normal Blood Pressure Blood Pressure [Left Arm] 110/60 107/75 Blood Pressure Mean Blood Pressure Mean [Left Arm] 76 85 Pulse Oximetry 96 97 97 Oxygen Delivery Method Room Air Room Air Room Air Sepsis Recent Fever Within 48 Hours Sepsis New/Unexplained Change in Mental Status Sepsis Action Taken by Nursing VITALS: Vitals are noted on the nurse's note and reviewed by myself. GENERAL: This is a 33-year-old female, lying on her side in bed, shaking. SKIN: Erythematous rash to the chest and anterior neck. Sutured wound of the left chest with no erythema or drainage. EARS: External auditory canals clear, tympanic membranes pearly quijano without erythema or effusion bilaterally. EYES: Pupils equal round and reactive to light and accommodation. NECK: Supple without nuchal rigidity. No lymphadenopathy. HEART: Regular rate and rhythm without murmurs gallops or rubs. LUNGS: Clear to auscultation bilaterally without wheezes, rales or rhonchi. ABDOMEN: Positive bowel sounds x 4. Soft, generalized tenderness to palpation. NEURO: Patient was alert and oriented to person place and time. Course Administered Medications Bethanechol Chloride (Bethanechol Chl 25 Mg Tab) 12.5 mg PO BID PRN PRN Reason: urinary retention Stop: 04/09/23 20:44 Last Admin: 03/10/23 21:32 Dose: 12.5 mg Documented By: NONA Dicyclomine HCl (Dicyclomine Hcl 10 Mg Cap) 20 mg PO Q6H PRN PRN Reason: Abdominal Pain Stop: 04/09/23 20:44 Last Admin: 03/10/23 21:39 Dose: 20 mg Documented By: NONA Famotidine (Famotidine 20 Mg Tab) 20 mg PO BID EMERALD Stop: 04/09/23 20:59 Last Admin: 03/10/23 21:40 Dose: 20 mg Documented By: NONA Fexofenadine HCl (Fexofenadine Hcl 180 Mg Tab) 180 mg PO HS EMERALD Stop: 04/09/23 20:59 Last Admin: 03/10/23 21:40 Dose: 180 mg Documented By: NONA Fludrocortisone Acetate (Fludrocortisone Acetate 0.1 Mg Tab) 0.1 mg PO BID EMERALD Stop: 04/09/23 20:59 Last Admin: 03/10/23 21:39 Dose: 0.1 mg Documented By: NONA Gabapentin (Gabapentin 250 Mg/5 Ml 470 Ml Btl) 900 mg PO TID EMERALD Stop: 04/09/23 20:59 Last Admin: 03/10/23 21:41 Dose: 900 mg Documented By: NONA Lorazepam (Lorazepam 0.5 Mg Iv Inj) 0.5 mg IV QID PRN PRN Reason: Nausea Stop: 04/09/23 21:11 Last Admin: 03/10/23 21:33 Dose: 0.5 mg Documented By: NONA Methocarbamol (Methocarbamol 750 Mg Tablet) 750 mg PO TID EMERALD Stop: 04/09/23 21:29 Last Admin: 03/10/23 21:38 Dose: 750 mg Documented By: NONA Multivitamins (Multivitamin Tab) 2 tab PO HS EMERALD Stop: 04/09/23 21:29 Last Admin: 03/10/23 21:41 Dose: Not Given Documented By: NONA Ondansetron HCl (Ondansetron Inj 2 Mg/Ml 2 Ml Vial) 4 mg IV Q6H PRN PRN Reason: NAUSEA/VOMITING Stop: 04/09/23 17:51 Last Admin: 03/10/23 18:23 Dose: 4 mg Documented By: JM Discontinued Medications Ciprofloxacin (Cipro / D5w) 400 mg in 200 mls @ 100 mls/hr IV NOW STA; Protocol Stop: 03/10/23 16:41 Last Infusion: 03/10/23 18:08 Dose: 0 mls/hr Documented By: Admin: 03/10/23 16:04 Dose: 100 mls/hr Documented By: JENNIFER Daptomycin 350 mg/ Syringe 7 mls @ 3.5 mls/min IV Q24H EMERALD; Protocol Stop: 03/12/23 14:44 Last Admin: 03/10/23 15:37 Dose: 3.5 mls/min Documented By: JENNIFER Ketamine HCl 5 mg/ Sodium (Chloride) 50.1 mls @ 300.6 mls/hr IV NOW ONE Stop: 03/10/23 14:47 Last Infusion: 03/10/23 16:02 Dose: 0 mls/hr Documented By: Admin: 03/10/23 15:44 Dose: 300.6 mls/hr Documented By: JENNIFER Medical Decision Making Differential Diagnosis Infection, dehydration, metabolic abnormality, hypo/hyperglycemia, electrolyte disturbance, anemia, hypoxia, cardiac sources, intracerebral event, toxicologic, neurologic, as well as other pathologies. Home Medications was personally reviewed by me Laboratory Data Attestation: I reviewed the patient's lab results. 03/10/23 14:51 03/10/23 14:51 Lab Results 03/10/23 03/10/23 03/10/23 Range/Units 14:51 14:51 14:51 WBC 4.53 L (4.8-10.8) K/ul RBC 3.95 L (4.20-5.40) M/uL Hgb 12.1 (12.0-16.0) g/dl Hct 36.3 L (37.0-47.0) % MCV 91.9 (80.0-100.0) fL MCH 30.6 (25.0-34.0) pg MCHC 33.3 (32.0-36.0) g/dL RDW Std Deviation 44.0 (36.4-46.3) fL RDW Coeff of Tim 13.2 (11.5-14.5) % Plt Count 322 (130-400) K/uL MPV 10.6 (9.4-12.4) fL Immature Gran % (Auto) 0.4 % Neut % (Auto) 71.6 % Lymph % (Auto) 17.4 % Elk % (Auto) 8.6 % Eos % (Auto) 1.3 % Baso % (Auto) 0.7 % Neut # (Auto) 3.24 (1.40-6.50) K/uL Lymph # (Auto) 0.79 L (1.20-3.40) K/uL Elk # (Auto) 0.39 (0.11-0.59) K/uL Eos # (Auto) 0.06 (0.00-0.50) K/uL Baso # (Auto) 0.03 (0.00-0.20) K/uL Immature Gran # (Auto) 0.02 (0.01-0.20) K/uL Sodium 141 (136-145) mmol/L Potassium 3.4 L (3.5-5.1) mmol/L Chloride 105 (98-107) mmol/L Carbon Dioxide 31 (21-32) mmol/L Anion Gap 5 (3-11) BUN 5 L (6-23) mg/dl Creatinine 0.63 (0.6-1.2) mg/dl Est Cr Clr Drug Dosing 134.0 ml/min Est GFR ( Amer) 138.5 ml/min Est GFR (Non-Af Amer) 119.5 ml/min BUN/Creatinine Ratio 7.9 L (10-20) Glucose 102 H (70-99(Fasting)) mg/dl Calcium 8.8 (8.6-10.3) mg/dl Magnesium 2.1 (1.7-2.4) mg/dl Total Bilirubin 0.3 (0.2-1.0) mg/dl Direct Bilirubin 0.0 (0-0.2) mg/dl AST 16 (13-39) U/L ALT 18 (7-52) U/L Alkaline Phosphatase 77 (34-104) U/L Total Protein 6.1 (6.0-8.3) gm/dl Albumin 3.8 (3.4-5.0) gm/dl Procalcitonin < 0.05 (0-0.5) ng/ml Urine Color Urine Appearance (Clear) Urine pH (4.5-7.5) Ur Specific Nunnelly (1.000-1.030) Urine Protein (Negative) Urine Glucose (UA) (Negative) Urine Ketones (Negative) Urine Blood (Negative) Urine Nitrite (Negative) Urine Bilirubin (Negative) Urine Urobilinogen (Negative) Ur Leukocyte Esterase (Negative) SARS-CoV-2 (PCR) (Negative) Influenza Type A (PCR) (Neg) Influenza Type B (PCR) (Neg) RSV (RT-PCR) (Neg) 03/10/23 03/10/23 Range/Units 15:02 15:27 WBC (4.8-10.8) K/ul RBC (4.20-5.40) M/uL Hgb (12.0-16.0) g/dl Hct (37.0-47.0) % MCV (80.0-100.0) fL MCH (25.0-34.0) pg MCHC (32.0-36.0) g/dL RDW Std Deviation (36.4-46.3) fL RDW Coeff of Tim (11.5-14.5) % Plt Count (130-400) K/uL MPV (9.4-12.4) fL Immature Gran % (Auto) % Neut % (Auto) % Lymph % (Auto) % Elk % (Auto) % Eos % (Auto) % Baso % (Auto) % Neut # (Auto) (1.40-6.50) K/uL Lymph # (Auto) (1.20-3.40) K/uL Elk # (Auto) (0.11-0.59) K/uL Eos # (Auto) (0.00-0.50) K/uL Baso # (Auto) (0.00-0.20) K/uL Immature Gran # (Auto) (0.01-0.20) K/uL Sodium (136-145) mmol/L Potassium (3.5-5.1) mmol/L Chloride (98-107) mmol/L Carbon Dioxide (21-32) mmol/L Anion Gap (3-11) BUN (6-23) mg/dl Creatinine (0.6-1.2) mg/dl Est Cr Clr Drug Dosing ml/min Est GFR ( Amer) ml/min Est GFR (Non-Af Amer) ml/min BUN/Creatinine Ratio (10-20) Glucose (70-99(Fasting)) mg/dl Calcium (8.6-10.3) mg/dl Magnesium (1.7-2.4) mg/dl Total Bilirubin (0.2-1.0) mg/dl Direct Bilirubin (0-0.2) mg/dl AST (13-39) U/L ALT (7-52) U/L Alkaline Phosphatase (34-104) U/L Total Protein (6.0-8.3) gm/dl Albumin (3.4-5.0) gm/dl Procalcitonin (0-0.5) ng/ml Urine Color Yellow Urine Appearance Clear (Clear) Urine pH 6.0 (4.5-7.5) Ur Specific Nunnelly 1.009 (1.000-1.030) Urine Protein Negative (Negative) Urine Glucose (UA) Negative (Negative) Urine Ketones Negative (Negative) Urine Blood Negative (Negative) Urine Nitrite Negative (Negative) Urine Bilirubin Negative (Negative) Urine Urobilinogen Negative (Negative) Ur Leukocyte Esterase Negative (Negative) SARS-CoV-2 (PCR) NEGATIVE (Negative) Influenza Type A (PCR) Negative (Neg) Influenza Type B (PCR) Negative (Neg) RSV (RT-PCR) Negative (Neg) Imaging Data Attestation: I personally reviewed and interpreted this imaging study as follows: Radiologist's Impression: Chest X-Ray 03/10/23 14:29 XR chest 1V portable HISTORY: 33 years-old Female Sepsis acute sepsis COMPARISON: 11/06/2022 TECHNIQUE: AP view of the chest FINDINGS: Cardiomediastinal and hilar silhouettes are unchanged. Right IJ Okgupm-m-Fate catheter is noted with distal tip in the expected location of the mid SVC. Interval removal of the left-sided catheter. Spinal stimulator leads are noted with distal tips overlying the mid thoracic spine. No pneumothorax, pleural effusion or airspace consolidation. Ill-defined right upper lung opacities. IMPRESSION: Mild Ill-defined right upper lobe opacities are likely secondary to summation density. No definite evidence of pneumonia. ACT 112: Negative or not required by law. The above report was generated using voice recognition software. It may contain grammatical, syntax or spelling errors. Electronically signed by: Derrek Sow M.D. 03/10/2023 3:29 PM MDM Narrative This patient is a 33-year-old female who presents to the emergency department for evaluation of an infection of her port. Her cultures came back positive and she was sent in for admission. Labs revealed no leukocytosis or concerning anemia. There were no significant electrolyte abnormalities. Urinalysis is not suggestive of infection. Procalcitonin was negative. COVID-19 testing was negative. I discussed the case with the ED pharmacist who recommended starting ciprofloxacin and daptomycin, which were ordered. Patient was also given ketamine per her protocol for pain. Case was then discussed with the [facility] admitting team who agreed to evaluate the patient for further care Impression Infection due to Port-A-Cath Discharge Plan Visit Data Chief Complaint: Seizure Stated Complaint: SEIZURE ED Provider: Jr Kong ED Midlevel Provider: Dee Norman Discharge Problem: Infection due to Port-A-Cath Patient Disposition: Admitted As Inpatient Discharge Instructions Interventions: ED Discharge Assessment Last Done: 03/10/23 19:56
--- NOTE | 2023-03-10 15:31 | XRay Report ---
XR chest 1V portable HISTORY: 33 years-old Female Sepsis acute sepsis COMPARISON: 11/06/2022 TECHNIQUE: AP view of the chest FINDINGS: Cardiomediastinal and hilar silhouettes are unchanged. Right IJ Vyluzo-b-Srtl catheter is noted with distal tip in the expected location of the mid SVC. Interval removal of the left-sided catheter. Spin al stimulator leads are noted with distal tips overlying the mid thoracic spine. No pneumothorax, ple ural effusion or airspace consolidation. Ill-defined right upper lung opacities. IMPRESSION: Mild Ill-defined right upper lobe opacities are likely secondary to summation density. No definite evidence of pneumonia. ACT 112: Negative or not required by law. The above report was generated using voice recognition software. It may contain grammatical, syntax o r spelling errors. Electronically signed by: Derrek Sow M.D. 03/10/2023 3:29 PM
[2023-03-10 15:39] LABS: Basophils # (auto) 0.03 K/uL (0.00-0.20); Basophils % (auto) 0.7 %; Eosinophils # (auto) 0.06 K/uL (0.00-0.50); Eosinophils % (auto) 1.3 %; Hematocrit (blood only) 36.3 % (37.0-47.0); Hemoglobin 12.1 g/dl (12.0-16.0); Immature Granulocytes # (auto) 0.02 K/uL (0.01-0.20); Immature Granulocytes % (auto) 0.4 %; Lymphocytes # (auto) 0.79 K/uL (1.20-3.40); Lymphocytes % (auto) 17.4 %; Mean Corpuscular Hemoglobin 30.6 pg (25.0-34.0); Mean Corpuscular Hgb Conc 33.3 g/dL (32.0-36.0); Mean Corpuscular Volume 91.9 fL (80.0-100.0); Mean Platelet Volume 10.6 fL (9.4-12.4); Monocytes # (auto) 0.39 K/uL (0.11-0.59); Monocytes % (auto) 8.6 %; Neutrophils # (auto) 3.24 K/uL (1.40-6.50); Neutrophils % (auto) 71.6 %; Platelet Count 322 K/uL (130-400); RDW Coefficient of Variation 13.2 % (11.5-14.5); Red Blood Count 3.95 M/uL (4.20-5.40); White Blood Count 4.53 K/ul (4.8-10.8)
[2023-03-10 15:50] LABS: Appearance Urine Clear (Clear); Bilirubin Urine Negative (Negative); Blood Urine Negative (Negative); Color Urine Yellow; Glucose Urine UA Negative (Negative); Ketones Urine Negative (Negative); Leukocyte Esterase Urine Negative (Negative); Nitrite Urine Negative (Negative); Protein Urine Negative (Negative); Specific Gravity Urine 1.009 (1.000-1.030); Urobilinogen Urine Negative (Negative)
[2023-03-10 15:54] LABS: Albumin Level 3.8 gm/dl (3.4-5.0); BUN Creatinine Ratio 7.9 (10-20); Bilirubin,Total 0.3 mg/dl (0.2-1.0); Calcium 8.8 mg/dl (8.6-10.3); Est GFR (African American) 138.5 ml/min; Est GFR (Non-African American) 119.5 ml/min; Magnesium 2.1 mg/dl (1.7-2.4); Potassium 3.4 mmol/L (3.5-5.1); Total Protein 6.1 gm/dl (6.0-8.3)
[2023-03-10 16:10] LABS: Influenza A virus by PCR Negative (Neg); Influenza B virus by PCR Negative (Neg); RSV by PCR Negative (Neg); SARS CoV2 RNA(COVID-19) Ceph NEGATIVE (Negative)
--- NOTE | 2023-03-10 17:40 | Critical Care Consultation ---
Date of Consultation March 10, 2023 Assessment & Plan (1) Seizure-like activity: (2) Epigastric abdominal pain: (3) Pain disorder: (4) Infection due to Port-A-Cath: Plan Reason Critically Ill: 33-year-old female with multiple medical problems who presents with breakthrough seizure-like activity and ongoing complaints of pain. Patient was provided her protocol including ketamine and requires ICU admission for close monitoring status post administration of ketamine treatment for her pain. NEURO - * CAM ICU: NEGATIVE * Pain: * Extensively evaluated and managed in the past. She has a spinal stimulator which is scheduled to be removed. She is currently on fentanyl patch and oral oxycodone. Given her breakthrough symptoms, she was started on ketamine. Will defer to pain management for this treatment moving forward. Patient will require ICU monitoring with the initiation of ketamine therapy. CARDIAC/VASCULAR - * Will require cardiac monitoring while receiving ketamine. * Monitor on telemetry. RESPIRATORY - * No history of pulmonary disease. * Monitor SaO2 while in the ICU. Supplemental O2 as needed. GI/NUTRITION - * Continue with TPN. * Extensive history. * Defer to her specialists. RENAL/LYTES - * No significant electrolyte derangements. - * No concerns at this time. ENDO - * BSGs per unit protocol. ISS --> gtt per unit policy. HEME - * Stable H&H ID - * Infected port (LEFT sided): * Catheter tip positive for Staph aureus. * Currently receiving daptomycin and Cipro. * Will defer to ID. * Theoretically, the patient should have received source control with removal of port. * Uncertain if this represents seeding from elsewhere. LINES/IV ACCESS - * RIGHT-sided chest port DVT PROPHYLAXIS - * Defer at this time until she undergoes stimulator removal. * SCDs I have personally spent 32 minutes of critical care time in the direct management of this patient. This is a life/limb threatening event. This includes time spent evaluating patient, direct bedside care, chart review, placing orders, interpretation of diagnostic studies, discussion with consultants, patient, and family members, as well as other required patient management activities. This time is exclusive of all separately billable procedures, and teaching time and separate from and in addition to any other critical care service time. Thank you for allowing us to participate in the care of this patient. Please refer to my attending physician's documentation for any further recommendations. Supervising Physician Co-Signing Physician Notes agree with above. Per institution protocol, monitor in ICU while receiving ketamine. No other critical care needs. History of Present Illness Reason for Consultation: Pain management Requesting Physician: Dr. Kumar Attending Physician: Dr. Layne History of Present Illness Patient is a 33-year-old female with an extensive past medical history. Who presents to the emergency room with worsening complaints of pain and increasing episodes of seizures. She most recently had been evaluated for infected LEFT sided port which was removed. She had positive cultures, but despite this she had been doing well at home. Unfortunately, her symptoms declined and she had increasing weakness and frequency of seizures. She was seen at her primary care provider's office today and sent to the emergency department for admission. Per her treatment plan, the patient received IV ketamine as well as antibiotic coverage with Cipro and daptomycin. Patient is to be evaluated for removal of her spinal stimulator. Overall, she feels poor and is complaining of abdominal pain with associated nausea. Allergies Allergy/AdvReac Type Severity Reaction Status Date / Time diphenhydramine Allergy Severe Anaphylaxis Verified 03/10/23 15:13 promethazine Allergy Severe hives, Verified 03/10/23 15:13 throat swelling adhesive Allergy Intermediate Redness of Verified 03/10/23 15:13 Skin amoxicillin Allergy Intermediate RASH Verified 03/10/23 15:13 calcium Allergy Intermediate SEE COMMENT Verified 03/10/23 15:13 [From VIACTIV Multi-Vitamin] cefazolin Allergy Intermediate rash Verified 03/10/23 15:13 Cephalosporins Allergy Intermediate HIVES Verified 03/10/23 15:13 clavulanic acid Allergy Intermediate HIVES Verified 03/10/23 15:13 ferric carboxymaltose Allergy Intermediate Rash Verified 03/10/23 15:13 [From Injectafer] folic acid Allergy Intermediate SEE COMMENT Verified 03/10/23 15:13 [From VIACTIV Multi-Vitamin] iron [From Venofer] Allergy Intermediate Muscle Pain Verified 03/10/23 15:13 multivitamin with minerals Allergy Intermediate SEE COMMENT Verified 03/10/23 15:13 [From VIACTIV Multi-Vitamin] Penicillins Allergy Intermediate HIVES Verified 03/10/23 15:13 prochlorperazine Allergy Intermediate HIVES Verified 03/10/23 15:13 sulfamethoxazole Allergy Intermediate RASH Verified 03/10/23 15:13 sumatriptan Allergy Intermediate RASH Verified 03/10/23 15:13 trimethoprim Allergy Intermediate RASH Verified 03/10/23 15:13 metoclopramide AdvReac Severe anxiety/ Verified 03/10/23 15:13 jittery morphine AdvReac Severe Severe Verified 03/10/23 15:13 abdominal Pain, sphincter of oddi spasms erythromycin base AdvReac Intermediate GI SYMPTOMS Verified 03/10/23 15:13 citalopram [From Celexa] AdvReac Unknown CAN'T Verified 03/10/23 15:13 REMEMBER Home Medications Medication Instructions Recorded Confirmed Type dicyclomine 10 mg capsule 20 mg PO Q6H PRN Abdominal Pain 03/07/18 03/10/23 History pantoprazole 40 mg tablet,delayed 40 mg PO QAM 09/08/19 03/10/23 History release (Protonix) famotidine 40 mg tablet 20 mg PO BID 11/28/19 03/10/23 History hydrocortisone 10 mg tablet See Rx Instructions .Route .COMPLEX 02/07/20 03/10/23 History fexofenadine 180 mg tablet 180 mg PO HS 10/09/20 03/10/23 History fludrocortisone 0.1 mg tablet 0.1 mg PO BID 12/12/20 03/10/23 History acetaminophen 500 mg tablet 1,000 mg PO Q6H PRN Pain 06/13/21 03/10/23 History (Tylenol Extra Strength) multivitamin with minerals-folic 2 tab PO HS 06/13/21 03/10/23 History acid 200 mcg chewable tablet (Multivitamin Gummies) turmeric 400 mg capsule 400 mg PO HS 06/13/21 03/10/23 History empty container (Enema Misc Bottle) #72 ea 01/16/22 03/06/23 Rx cholecalciferol (vitamin D3) 25 50 mcg PO QAM 04/07/22 03/10/23 History mcg (1,000 unit) capsule (Vitamin D3) duloxetine 60 mg capsule,delayed 60 mg PO QAM 04/07/22 03/10/23 History release methocarbamol 750 mg tablet 750 mg PO TID 04/07/22 03/10/23 History coenzyme Q10 100 mg capsule 100 mg PO PM 07/22/22 03/10/23 History (CoQ-10) pyridoxine (vitamin B6) 50 mg 50 mg PO QAM 07/22/22 03/10/23 History tablet ondansetron 8 mg disintegrating 8 mg PO TID PRN Nausea 10/06/22 03/10/23 History tablet fentanyl 75 mcg/hr transdermal 1 patch transdermal Q72H #10 ea 10/23/22 03/10/23 Rx patch lorazepam 2 mg/mL injection 0.5 mg (0.25 mL) buccal QID PRN 12/04/22 03/10/23 Rx solution (Ativan) Nausea #100 mL bethanechol chloride 25 mg tablet 12.5 mg PO BID PRN urinary 12/05/22 03/10/23 Rx retention #20 tabs oxycodone 5 mg/5 mL oral solution 5 mg (5 mL) PO Q4H PRN pain #250 mL 12/05/22 03/10/23 Rx levothyroxine 50 mcg tablet 50 mcg PO QAM 03/04/23 03/10/23 History (Synthroid) calcium 250 mg tablet 250 mg PO PM 03/05/23 03/10/23 History gabapentin 250 mg/5 mL oral 900 mg PO TID 03/10/23 03/10/23 History solution Patient History Medical History Abdominal pain Asthma Chronic migraine Chronic, continuous use of opioids Colitis Dehydration "kind of always dehydrated" Diversion colitis Elevated lipase Endometriosis has had 3 surgeries for this. 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 Hypotension Intussusception hx Nausea Pancreatitis hx PICC (peripherally inserted central catheter) in place TPN POTS (postural orthostatic tachycardia syndrome) f/u dr. carroll, [facility] SMAS (superior mesenteric artery syndrome) History of SMAS Sphincter of Oddi dysfunction DECREASED GI MOTILITY Spinal cord stimulator status trial implanted 03/02/23, in dr. ramírez's office>advised to bring remote Transaminitis Uses feeding tube gastroparesis and decreased GI motility can not tolerate feeding and uses TPN Surgical History H/O adenoidectomy H/O laparoscopy H/O lumpectomy right breast 2011 History of appendectomy History of bowel resection Part of duodenum removed due to necrosis; done at [facility] 2019 History of esophagogastroduodenoscopy (EGD) History of hysterectomy 09/27/19 History of removal of Port-a-Cath 10/13/[address] Geiger, [facility], due to bacteremia/sepsis.; "inserted and removed multiple times" History of vascular access device 2018; implanted and removed "several" times Hx of colonoscopy during procedure perforated small bowel 10/27/2019 at the [facility], subsequent repair of duodenal area. Hx of ileostomy Hx of tonsillectomy S/P cholecystectomy 2014 S/P wrist surgery right Family History Father Hyperlipidemia Other No significant family history Social History Smoking Status: Never smoker Second Hand Exposure: No; Do You Dip or Chew Tobacco: No; Hx Alcohol Use: No Hx Substance Use: No Preferred Language: Maori Communication Ability: Effective Visual Impairment: No Limitations Hearing Ability: Normal Team Primary Care Physician Required: No Beliefs That Will Affect Care: None marital status: Single Current Living Situation: Parent and Family Current Living Situation Comment: Patient lives at home with both parents current occupational status: unemployed current occupation: completed 4-year degree at [employer] How many Children do You have: 0 Feels Safe at Home: Yes Diet: regular Sexual Activity Comment: not sexually active Assistive Devices: Wheelchair Review of Systems Review of Systems: A complete 10 point review of systems was reviewed with the patient with pertinent positives and negatives as per history of present illness. All else were negative. Physical Exam Physical Exam: VITAL SIGNS - Vital signs and nursing notes were reviewed. GENERAL - 33-year-old female appearing her stated age who is in no acute distress. Communicates well with provider and answers questions appropriately. SKIN - LEFT sided chest dressing clean, dry, and intact. HEAD - NC/AT. EYES - PERRL with EOMI bilaterally. Sclera anicteric. EARS - No deformities of external structures noted on gross examination bilaterally. NOSE - Midline and without cyanosis. MOUTH/OROPHARYNX - Without perioral cyanosis. NECK - Neck with FROM. LUNGS - Chest wall symmetric without accessory muscle use, intercostals retractions, or central cyanosis. Normal vesicular breath sounds CTA B/L. No w heezes, rales, or rhonchi appreciated. CARDIAC - RRR with S1/S2. No murmur, rubs, or gallops appreciated. ABDOMEN - Abdominal contour flat without pulsations or visible masses. Ostomy in place. Subjective TTP throughout. EXTREMITIES - No clubbing or peripheral cyanosis. No pretibial edema present. +3/5 radial and dorsalis pedis pulses palpated throughout. NEUROLOGIC - Cranial nerves II through XII grossly intact. Sensory intact to light touch throughout. PSYCH - A&Ox3 and cooperates fully with examiner. Pt is very pleasant and interacts well with examiner. Results & Data Results & Data Vital Signs (Past 12 Hours) Vital Signs Temp Pulse Pulse Resp BP BP Pulse Ox 03/10/23 17:04 70 16 107/75 97 03/10/23 16:45 64 16 110/60 97 03/10/23 16:09 96 03/10/23 15:48 63 16 109/76 96 03/10/23 15:10 97 03/10/23 13:49 36.7 C 80 21 104/78 97 O2 Del Method 03/10/23 17:04 Room Air 03/10/23 16:45 Room Air 03/10/23 16:09 Room Air 03/10/23 15:48 Room Air 03/10/23 15:10 Room Air 03/10/23 13:49 Coding Level of Care Code 33324 CRITICAL CARE 1ST 30-74M Diagnoses Seizure-like activity R56.9 Epigastric abdominal pain R10.13 Pain disorder R52 Infection due to Port-A-Cath T80.219A
--- NOTE | 2023-03-10 17:41 | History & Physical Report ---
Date of Service March 10, 2023 Assessment & Plan (1) Infection due to Port-A-Cath: (2) Pain disorder: (3) Adrenal insufficiency: (4) Abdominal pain, chronic, generalized: (5) Severe protein-calorie malnutrition: (6) Seizure-like activity: (7) Visceral hyperalgesia: (8) Chronic, continuous use of opioids: (9) SMAS (superior mesenteric artery syndrome): (10) Asthma: (11) Uses feeding tube: (12) Chronic migraine: (13) Pseudomonas aeruginosa infection: (14) Central line infection: (15) Methicillin susceptible Staphylococcus aureus infection: Plan Left Port-A-Cath infection- Removed on 03/05/2023 Tip growing MSSA Line itself growing MSSA and Pseudomonas, both pansensitive Patient received daptomycin IV and Cipro IV in the ED We will change to levofloxacin 750 mg IV every 24 hours starting tomorrow Can consult infectious disease in the a.m. Visceral hyperalgesia/acute on chronic abdominal pain- Acetaminophen 650 mg by mouth every 6 hours as needed for mild pain or fever. If necessary, change to acetaminophen 1 g IV every 8 hours as needed Continue oxycodone 5 mg p.o. every 4 hours as needed moderate pain Ketamine 5 mg IV x1 in ED then every 1 hour as needed, with maximum 10 mg in 4- hour interval. Discussed with Dr. Hawkins Continue dicyclomine, duloxetine, fentanyl patch, gabapentin, lorazepam, Zofran, methocarbamol Adrenal insufficiency- Continue hydrocortisone 15 mg in the morning and 10 mg in the evening Low threshold for stress dose steroids, but will hold for now due to present bacterial infection History of Present Illness Chief Complaint: The patient presents to the emergency department for concerns regarding recurrent seizure activity at home, having felt severely fatigued all day yesterday. Primary Care Provider: Mariah Addison DO The patient is a 33-year-old female with a past medical history including chronic abdominal pain, adrenal insufficiency, hypothyroidism, visceral hyp eralgesia, chronic continuous use of opioids, SMAS, chronic severe protein calorie malnutrition, B12 deficiency, folate deficiency and asthma. She was most recently admitted from 02/24-03/01/2023. On 03/05/2023 she had a left- sided port removed, with tip growing MSSA, and port grew MSSA and Pseudomonas aeruginosa, both pansensitive. She was referred into the ED due to positive blood cultures. In the emergency department patient received daptomycin and Cipro IV. She has received ketamine 5 mg IV x1. She will be admitted to the ICU for ketamine protocol. She was also seen in the ED by Dr. Jose De Jesus Hawkins, from [facility], who removed her temporary pain stimulator. Allergies Allergy/AdvReac Type Severity Reaction Status Date / Time diphenhydramine Allergy Severe Anaphylaxis Verified 03/10/23 15:13 promethazine Allergy Severe hives, Verified 03/10/23 15:13 throat swelling adhesive Allergy Intermediate Redness of Verified 03/10/23 15:13 Skin amoxicillin Allergy Intermediate RASH Verified 03/10/23 15:13 calcium Allergy Intermediate SEE COMMENT Verified 03/10/23 15:13 [From VIACTIV Multi-Vitamin] cefazolin Allergy Intermediate rash Verified 03/10/23 15:13 Cephalosporins Allergy Intermediate HIVES Verified 03/10/23 15:13 clavulanic acid Allergy Intermediate HIVES Verified 03/10/23 15:13 ferric carboxymaltose Allergy Intermediate Rash Verified 03/10/23 15:13 [From Injectafer] folic acid Allergy Intermediate SEE COMMENT Verified 03/10/23 15:13 [From VIACTIV Multi-Vitamin] iron [From Venofer] Allergy Intermediate Muscle Pain Verified 03/10/23 15:13 multivitamin with minerals Allergy Intermediate SEE COMMENT Verified 03/10/23 15:13 [From VIACTIV Multi-Vitamin] Penicillins Allergy Intermediate HIVES Verified 03/10/23 15:13 prochlorperazine Allergy Intermediate HIVES Verified 03/10/23 15:13 sulfamethoxazole Allergy Intermediate RASH Verified 03/10/23 15:13 sumatriptan Allergy Intermediate RASH Verified 03/10/23 15:13 trimethoprim Allergy Intermediate RASH Verified 03/10/23 15:13 metoclopramide AdvReac Severe anxiety/ Verified 03/10/23 15:13 jittery morphine AdvReac Severe Severe Verified 03/10/23 15:13 abdominal Pain, sphincter of oddi spasms erythromycin base AdvReac Intermediate GI SYMPTOMS Verified 03/10/23 15:13 citalopram [From Celexa] AdvReac Unknown CAN'T Verified 03/10/23 15:13 REMEMBER Home Medications Medication Instructions Recorded Confirmed Type dicyclomine 10 mg capsule 20 mg PO Q6H PRN Abdominal Pain 03/07/18 03/10/23 History pantoprazole 40 mg tablet,delayed 40 mg PO QAM 09/08/19 03/10/23 History release (Protonix) famotidine 40 mg tablet 20 mg PO BID 11/28/19 03/10/23 History hydrocortisone 10 mg tablet See Rx Instructions .Route .COMPLEX 02/07/20 03/10/23 History fexofenadine 180 mg tablet 180 mg PO HS 10/09/20 03/10/23 History fludrocortisone 0.1 mg tablet 0.1 mg PO BID 12/12/20 03/10/23 History acetaminophen 500 mg tablet 1,000 mg PO Q6H PRN Pain 06/13/21 03/10/23 History (Tylenol Extra Strength) multivitamin with minerals-folic 2 tab PO HS 06/13/21 03/10/23 History acid 200 mcg chewable tablet (Multivitamin Gummies) turmeric 400 mg capsule 400 mg PO HS 06/13/21 03/10/23 History empty container (Enema Misc Bottle) #72 ea 01/16/22 03/06/23 Rx cholecalciferol (vitamin D3) 25 50 mcg PO QAM 04/07/22 03/10/23 History mcg (1,000 unit) capsule (Vitamin D3) duloxetine 60 mg capsule,delayed 60 mg PO QAM 04/07/22 03/10/23 History release methocarbamol 750 mg tablet 750 mg PO TID 04/07/22 03/10/23 History coenzyme Q10 100 mg capsule 100 mg PO PM 07/22/22 03/10/23 History (CoQ-10) pyridoxine (vitamin B6) 50 mg 50 mg PO QAM 07/22/22 03/10/23 History tablet ondansetron 8 mg disintegrating 8 mg PO TID PRN Nausea 10/06/22 03/10/23 History tablet fentanyl 75 mcg/hr transdermal 1 patch transdermal Q72H #10 ea 10/23/22 03/10/23 Rx patch lorazepam 2 mg/mL injection 0.5 mg (0.25 mL) buccal QID PRN 12/04/22 03/10/23 Rx solution (Ativan) Nausea #100 mL bethanechol chloride 25 mg tablet 12.5 mg PO BID PRN urinary 12/05/22 03/10/23 Rx retention #20 tabs oxycodone 5 mg/5 mL oral solution 5 mg (5 mL) PO Q4H PRN pain #250 mL 12/05/22 03/10/23 Rx levothyroxine 50 mcg tablet 50 mcg PO QAM 03/04/23 03/10/23 History (Synthroid) calcium 250 mg tablet 250 mg PO PM 03/05/23 03/10/23 History gabapentin 250 mg/5 mL oral 900 mg PO TID 03/10/23 03/10/23 History solution Past Med/Surg History Medical History Abdominal pain Asthma Chronic migraine Chronic, continuous use of opioids Colitis Dehydration "kind of always dehydrated" Diversion colitis Elevated lipase Endometriosis has had 3 surgeries for this. 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 Hypotension Intussusception hx Nausea Pancreatitis hx PICC (peripherally inserted central catheter) in place TPN POTS (postural orthostatic tachycardia syndrome) f/u dr. carroll, [facility] SMAS (superior mesenteric artery syndrome) History of SMAS Sphincter of Oddi dysfunction DECREASED GI MOTILITY Spinal cord stimulator status trial implanted 03/02/23, in dr. ramírez's office>advised to bring remote Transaminitis Uses feeding tube gastroparesis and decreased GI motility can not tolerate feeding and uses TPN Surgical History H/O adenoidectomy H/O laparoscopy H/O lumpectomy right breast 2011 History of appendectomy History of bowel resection Part of duodenum removed due to necrosis; done at [facility] 2019 History of esophagogastroduodenoscopy (EGD) History of hysterectomy 09/27/19 History of removal of Port-a-Cath 10/13/[address] Geiger, [facility], due to bacteremia/sepsis.; "inserted and removed multiple times" History of vascular access device 2018; implanted and removed "several" times Hx of colonoscopy during procedure perforated small bowel 10/27/2019 at the [facility], subsequent repair of duodenal area. Hx of ileostomy Hx of tonsillectomy S/P cholecystectomy 2014 S/P wrist surgery right Family History Father Hyperlipidemia Other No significant family history Social History Smoking Status: Never smoker Second Hand Exposure: No; Do You Dip or Chew Tobacco: No; Hx Alcohol Use: No Hx Substance Use: No Preferred Language: Khmer Communication Ability: Effective Visual Impairment: No Limitations Hearing Ability: Normal Color Blender Required: No Beliefs That Will Affect Care: None marital status: Single Current Living Situation: Parent Current Living Situation Comment: Lives with family. current occupational status: unemployed current occupation: completed 4-year degree at [employer] How many Children do You have: 0 Feels Safe at Home: Yes Diet: regular Sexual Activity Comment: not sexually active Assistive Devices: Contacts, Glasses and Wheelchair Review of Systems Review of Systems: The patient denies chest pain, palpitations, shortness of breath, dyspnea on exertion, cough, lower extremity swelling, sore throat, fevers, chills, sweats, blood in urine or stool, dysuria, urinary frequency or urgency, memory loss, loss of consciousness, rash, abnormal bruising or bleeding, imbalance, focal weakness, numbness or tingling in arms or legs, or night sweats. The review of systems is otherwise negative other than for that already noted above, and at least 10 systems have been reviewed. Physical Exam Physical Exam: The patient is awake, alert and oriented 3, normocephalic and atraumatic, lying in bed and in no acute distress. HEENT--PERRL, EOMI, mucous membranes and oropharynx dry. Neck--supple. No JVD. No bruits. Thyroid normal, trachea midline, no adenopathy. Heart--normal S1 and S2. No murmurs, rubs or gallops. Lungs--clear bilaterally, no respiratory distress, no accessory muscle use. Abdomen--normal bowel sounds and soft. Nontender. Nondistended. Extremities--no cyanosis or clubbing. No edema. Dermatologic--normal skin turgor, normal color, no abnormal lymph nodes, no rash. Neurologic--cranial nerves II through XII grossly intact. Rheumatologic--normal range of motion. Psychiatric--normal affect. Results & Data Results & Data Vital Signs (Past 12 Hours) Vital Signs Temp Pulse Pulse Resp BP BP Pulse Ox 03/10/23 17:04 70 16 107/75 97 03/10/23 16:45 64 16 110/60 97 03/10/23 16:09 96 03/10/23 15:48 63 16 109/76 96 03/10/23 15:10 97 03/10/23 13:49 36.7 C 80 21 104/78 97 O2 Del Method 03/10/23 17:04 Room Air 03/10/23 16:45 Room Air 03/10/23 16:09 Room Air 03/10/23 15:48 Room Air 03/10/23 15:10 Room Air 03/10/23 13:49 Laboratory Results Laboratory Results WBC 4.53 K/ul (4.8-10.8) L 03/10/23 14:51 RBC 3.95 M/uL (4.20-5.40) L 03/10/23 14:51 Hgb 12.1 g/dl (12.0-16.0) 03/10/23 14:51 Hct 36.3 % (37.0-47.0) L 03/10/23 14:51 MCV 91.9 fL (80.0-100.0) 03/10/23 14:51 MCH 30.6 pg (25.0-34.0) 03/10/23 14:51 MCHC 33.3 g/dL (32.0-36.0) 03/10/23 14:51 RDW Std Deviation 44.0 fL (36.4-46.3) 03/10/23 14:51 RDW Coeff of Tim 13.2 % (11.5-14.5) 03/10/23 14:51 Plt Count 322 K/uL (130-400) 03/10/23 14:51 MPV 10.6 fL (9.4-12.4) 03/10/23 14:51 Immature Gran % (Auto) 0.4 % 03/10/23 14:51 Neut % (Auto) 71.6 % 03/10/23 14:51 Lymph % (Auto) 17.4 % 03/10/23 14:51 Bell % (Auto) 8.6 % 03/10/23 14:51 Eos % (Auto) 1.3 % 03/10/23 14:51 Baso % (Auto) 0.7 % 03/10/23 14:51 Neut # (Auto) 3.24 K/uL (1.40-6.50) 03/10/23 14:51 Lymph # (Auto) 0.79 K/uL (1.20-3.40) L 03/10/23 14:51 Bell # (Auto) 0.39 K/uL (0.11-0.59) 03/10/23 14:51 Eos # (Auto) 0.06 K/uL (0.00-0.50) 03/10/23 14:51 Baso # (Auto) 0.03 K/uL (0.00-0.20) 03/10/23 14:51 Immature Gran # (Auto) 0.02 K/uL (0.01-0.20) 03/10/23 14:51 Sodium 141 mmol/L (136-145) 03/10/23 14:51 Potassium 3.4 mmol/L (3.5-5.1) L 03/10/23 14:51 Chloride 105 mmol/L (98-107) 03/10/23 14:51 Carbon Dioxide 31 mmol/L (21-32) 03/10/23 14:51 Anion Gap 5 (3-11) 03/10/23 14:51 BUN 5 mg/dl (6-23) L 03/10/23 14:51 Creatinine 0.63 mg/dl (0.6-1.2) 03/10/23 14:51 Est Cr Clr Drug Dosing 134.0 ml/min 03/10/23 14:51 Est GFR ( Amer) 138.5 ml/min 03/10/23 14:51 Est GFR (Non-Af Amer) 119.5 ml/min 03/10/23 14:51 BUN/Creatinine Ratio 7.9 (10-20) L 03/10/23 14:51 Glucose 102 mg/dl (70-99(Fasting)) H 03/10/23 14:51 Lactate 1.3 mmol/L (0.4-2.0) 03/10/23 19:51 Calcium 8.8 mg/dl (8.6-10.3) 03/10/23 14:51 Magnesium 2.1 mg/dl (1.7-2.4) 03/10/23 14:51 Total Bilirubin 0.3 mg/dl (0.2-1.0) 03/10/23 14:51 Direct Bilirubin 0.0 mg/dl (0-0.2) 03/10/23 14:51 AST 16 U/L (13-39) 03/10/23 14:51 ALT 18 U/L (7-52) 03/10/23 14:51 Alkaline Phosphatase 77 U/L (34-104) 03/10/23 14:51 Total Protein 6.1 gm/dl (6.0-8.3) 03/10/23 14:51 Albumin 3.8 gm/dl (3.4-5.0) 03/10/23 14:51 Procalcitonin < 0.05 ng/ml (0-0.5) 03/10/23 14:51 Urine Color Yellow 03/10/23 15:27 Urine Appearance Clear (Clear) 03/10/23 15:27 Urine pH 6.0 (4.5-7.5) 03/10/23 15:27 Ur Specific [place] 1.009 (1.000-1.030) 03/10/23 15:27 Urine Protein Negative (Negative) 03/10/23 15:27 Urine Glucose (UA) Negative (Negative) 03/10/23 15:27 Urine Ketones Negative (Negative) 03/10/23 15:27 Urine Blood Negative (Negative) 03/10/23 15:27 Urine Nitrite Negative (Negative) 03/10/23 15:27 Urine Bilirubin Negative (Negative) 03/10/23 15:27 Urine Urobilinogen Negative (Negative) 03/10/23 15:27 Ur Leukocyte Esterase Negative (Negative) 03/10/23 15:27 SARS-CoV-2 (PCR) NEGATIVE (Negative) 03/10/23 15:02 Influenza Type A (PCR) Negative (Neg) 03/10/23 15:02 Influenza Type B (PCR) Negative (Neg) 03/10/23 15:02 RSV (RT-PCR) Negative (Neg) 03/10/23 15:02 Impressions Chest X-Ray 03/10/23 14:29 XR chest 1V portable HISTORY: 33 years-old Female Sepsis acute sepsis COMPARISON: 11/06/2022 TECHNIQUE: AP view of the chest FINDINGS: Cardiomediastinal and hilar silhouettes are unchanged. Right IJ [id number] catheter is noted with distal tip in the expected location of the mid SVC. Interval removal of the left-sided catheter. Spinal stimulator leads are noted with distal tips overlying the mid thoracic spine. No pneumothorax, pleural effusion or airspace consolidation. Ill-defined right upper lung opacities. IMPRESSION: Mild Ill-defined right upper lobe opacities are likely secondary to summation density. No definite evidence of pneumonia. ACT 112: Negative or not required by law. The above report was generated using voice recognition software. It may contain grammatical, syntax or spelling errors. Electronically signed by: Derrek Sow M.D. 03/10/2023 3:29 PM Code Status & VTE Plan Code Status Full code VTE Prophylaxis Plan VTE Prophylaxis will be ordered: Yes PG Care Time/CCT Total # of Minutes Spent Total Time Spent with Patient: Total time spent is greater than 50% in coordination of care (as documented) at patient's floor/unit and/or counseling patient: Coding Level of Care Code 83753 INT INP/OBS CARE 3/75MIN Diagnoses Infection due to Port-A-Cath T80.219A Pain disorder R52 Adrenal insufficiency E27.40 Abdominal pain, chronic, generalized R10.84; G89.29 Severe protein-calorie malnutrition E43 Seizure-like activity R56.9 Visceral hyperalgesia R19.8 Chronic, continuous use of opioids F11.90 SMAS (superior mesenteric artery syndrome) K55.1 Asthma J45.909 Uses feeding tube Z97.8 Chronic migraine G43.709 Pseudomonas aeruginosa infection A49.8 Central line infection T80.219A Methicillin susceptible Staphylococcus aureus infection A49.01
--- NOTE | 2023-03-10 17:57 | Pain Management Consultation ---
Date of Consultation March 10, 2023 Assessment & Plan (1) Visceral hyperalgesia: Present on Admission?: Yes (2) Infection due to Port-A-Cath: Present on Admission?: Yes Plan 1. Visceral hyperalgesia. 2. SCS trial leads in place. Recommend: 1. Removal of epidural SCS leads. Both leads removed intact uneventfully No signs of drainage or purulent material at the tips. Band aid applied. 2. Ketamine 5 mg IV prn pain. Repeat x 1in 1 hr. Max 10 mg in 4 hrs. History of Present Illness Requesting Physician: Assistance with management of spinal cord stimulator Attending Physician: Dr. Finn History of Present Illness 33 yr old female with history of visceral hyperalgesia that has a trial scs lead. She presents to the ED with infected port site. Consultation was requested to remove her trial epidural leads and for management of her abdominal pain. She reports no spinal pain, tenderness or any neurological symptoms. Reports being fatigued and experiencing abdominal pain. No complaints of urinary i ncontinence. Allergies Allergy/AdvReac Type Severity Reaction Status Date / Time diphenhydramine Allergy Severe Anaphylaxis Verified 03/10/23 15:13 promethazine Allergy Severe hives, Verified 03/10/23 15:13 throat swelling adhesive Allergy Intermediate Redness of Verified 03/10/23 15:13 Skin amoxicillin Allergy Intermediate RASH Verified 03/10/23 15:13 calcium Allergy Intermediate SEE COMMENT Verified 03/10/23 15:13 [From VIACTIV Multi-Vitamin] cefazolin Allergy Intermediate rash Verified 03/10/23 15:13 Cephalosporins Allergy Intermediate HIVES Verified 03/10/23 15:13 clavulanic acid Allergy Intermediate HIVES Verified 03/10/23 15:13 ferric carboxymaltose Allergy Intermediate Rash Verified 03/10/23 15:13 [From Injectafer] folic acid Allergy Intermediate SEE COMMENT Verified 03/10/23 15:13 [From VIACTIV Multi-Vitamin] iron [From Venofer] Allergy Intermediate Muscle Pain Verified 03/10/23 15:13 multivitamin with minerals Allergy Intermediate SEE COMMENT Verified 03/10/23 15:13 [From VIACTIV Multi-Vitamin] Penicillins Allergy Intermediate HIVES Verified 03/10/23 15:13 prochlorperazine Allergy Intermediate HIVES Verified 03/10/23 15:13 sulfamethoxazole Allergy Intermediate RASH Verified 03/10/23 15:13 sumatriptan Allergy Intermediate RASH Verified 03/10/23 15:13 trimethoprim Allergy Intermediate RASH Verified 03/10/23 15:13 metoclopramide AdvReac Severe anxiety/ Verified 03/10/23 15:13 jittery morphine AdvReac Severe Severe Verified 03/10/23 15:13 abdominal Pain, sphincter of oddi spasms erythromycin base AdvReac Intermediate GI SYMPTOMS Verified 03/10/23 15:13 citalopram [From Celexa] AdvReac Unknown CAN'T Verified 03/10/23 15:13 REMEMBER Home Medications Medication Instructions Recorded Confirmed Type dicyclomine 10 mg capsule 20 mg PO Q6H PRN Abdominal Pain 03/07/18 03/10/23 History pantoprazole 40 mg tablet,delayed 40 mg PO QAM 09/08/19 03/10/23 History release (Protonix) famotidine 40 mg tablet 20 mg PO BID 11/28/19 03/10/23 History hydrocortisone 10 mg tablet See Rx Instructions .Route .COMPLEX 02/07/20 03/10/23 History fexofenadine 180 mg tablet 180 mg PO HS 10/09/20 03/10/23 History fludrocortisone 0.1 mg tablet 0.1 mg PO BID 12/12/20 03/10/23 History acetaminophen 500 mg tablet 1,000 mg PO Q6H PRN Pain 06/13/21 03/10/23 History (Tylenol Extra Strength) multivitamin with minerals-folic 2 tab PO HS 06/13/21 03/10/23 History acid 200 mcg chewable tablet (Multivitamin Gummies) turmeric 400 mg capsule 400 mg PO HS 06/13/21 03/10/23 History empty container (Enema Misc Bottle) #72 ea 01/16/22 03/06/23 Rx cholecalciferol (vitamin D3) 25 50 mcg PO QAM 04/07/22 03/10/23 History mcg (1,000 unit) capsule (Vitamin D3) duloxetine 60 mg capsule,delayed 60 mg PO QAM 04/07/22 03/10/23 History release methocarbamol 750 mg tablet 750 mg PO TID 04/07/22 03/10/23 History coenzyme Q10 100 mg capsule 100 mg PO PM 07/22/22 03/10/23 History (CoQ-10) pyridoxine (vitamin B6) 50 mg 50 mg PO QAM 07/22/22 03/10/23 History tablet ondansetron 8 mg disintegrating 8 mg PO TID PRN Nausea 10/06/22 03/10/23 History tablet fentanyl 75 mcg/hr transdermal 1 patch transdermal Q72H #10 ea 10/23/22 03/10/23 Rx patch lorazepam 2 mg/mL injection 0.5 mg (0.25 mL) buccal QID PRN 12/04/22 03/10/23 Rx solution (Ativan) Nausea #100 mL bethanechol chloride 25 mg tablet 12.5 mg PO BID PRN urinary 12/05/22 03/10/23 Rx retention #20 tabs oxycodone 5 mg/5 mL oral solution 5 mg (5 mL) PO Q4H PRN pain #250 mL 12/05/22 03/10/23 Rx levothyroxine 50 mcg tablet 50 mcg PO QAM 03/04/23 03/10/23 History (Synthroid) calcium 250 mg tablet 250 mg PO PM 03/05/23 03/10/23 History gabapentin 250 mg/5 mL oral 900 mg PO TID 03/10/23 03/10/23 History solution Patient History Medical History Abdominal pain Asthma Chronic migraine Chronic, continuous use of opioids Colitis Dehydration "kind of always dehydrated" Diversion colitis Elevated lipase Endometriosis has had 3 surgeries for this. 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 Hypotension Intussusception hx Nausea Pancreatitis hx PICC (peripherally inserted central catheter) in place TPN POTS (postural orthostatic tachycardia syndrome) f/u dr. carroll, [facility] SMAS (superior mesenteric artery syndrome) History of SMAS Sphincter of Oddi dysfunction DECREASED GI MOTILITY Spinal cord stimulator status trial implanted 03/02/23, in dr. ramírez's office>advised to bring remote Transaminitis Uses feeding tube gastroparesis and decreased GI motility can not tolerate feeding and uses TPN Surgical History H/O adenoidectomy H/O laparoscopy H/O lumpectomy right breast 2011 History of appendectomy History of bowel resection Part of duodenum removed due to necrosis; done at [facility] 2019 History of esophagogastroduodenoscopy (EGD) History of hysterectomy 09/27/19 History of removal of Port-a-Cath 10/13/[address] Geiger, [facility], due to bacteremia/sepsis.; "inserted and removed multiple times" History of vascular access device 2018; implanted and removed "several" times Hx of colonoscopy during procedure perforated small bowel 10/27/2019 at [facility], subsequent repair of duodenal area. Hx of ileostomy Hx of tonsillectomy S/P cholecystectomy 2015 S/P wrist surgery right Family History Father Hyperlipidemia Other No significant family history Social History Smoking Status: Never smoker Second Hand Exposure: No; Do You Dip or Chew Tobacco: No; Hx Alcohol Use: No Hx Substance Use: No Preferred Language: Cambodian Communication Ability: Effective Visual Impairment: No Limitations Hearing Ability: Normal Fundraising Sale Representative Required: No Beliefs That Will Affect Care: None marital status: Single Current Living Situation: Parent Current Living Situation Comment: Lives with family. current occupational status: unemployed current occupation: completed 4-year degree at [employer] How many Children do You have: 0 Feels Safe at Home: Yes Diet: regular Sexual Activity Comment: not sexually active Assistive Devices: Contacts, Glasses and Wheelchair Physical Exam Constitutional: WD/WN, vitals as above + acute distress (Abdominal pain.) and + ill appearing Respiratory: normal respiratory effort Musculoskeletal: Spine: normal cervical lordosis, thoracic spine normal to inspection and lumbar spine normal to inspection; no pain with thoraco-lumbar ROM, no thoracic spinal tenderness, no lumbar spinal tenderness, no paraspinal tenderness and no thoraco-lumbar mass Extremities: extremities normal to inspection and strength 5/5 throughout SCS insertion site unremarkable. Skin: no rashes, warm and dry Neurologic: normal touch/pain/proprioception Psychiatric: A+Ox3, euthymic affect Insight: good insight
[2023-03-10] MEDS: ONDANSETRON INJ 2 MG/ML 2 ML VIAL IV PRN (18:23)
--- NOTE | 2023-03-10 20:35 | Billing Data ---
Date of Service March 10, 2023 Coding Level of Care Code 86188 CRITICAL CARE 1ST 30-74M Time Spent (min) 65 Comment admitted to ICU
[2023-03-10] MEDS ORDERED: ACETAMINOPHEN 500 MG TAB PO PRN (20:45)
[2023-03-10] MEDS ORDERED: KETAMINE HCL INJ 50 MG/ML 10 ML VIAL IV PRN (20:45)
[2023-03-10] MEDS ORDERED: NON-FORMULARY MEDICATION (Coenzyme Q10 [Coq-10] 100 mg capsule) PO SCH (21:00)
[2023-03-10] MEDS ORDERED: NON-FORMULARY MEDICATION (Calcium 250 mg Tablet) PO SCH (21:00)
[2023-03-10] MEDS ORDERED: NON-FORMULARY MEDICATION (Turmeric 400 mg Capsule) PO SCH (21:00)
[2023-03-10] MEDS: BETHANECHOL CHL 25 MG TAB PO PRN (21:32)
[2023-03-10] MEDS: LORazepam 0.5 mg IV INJ IV PRN (21:33)
[2023-03-10] MEDS: METHOCARBAMOL 750 MG TABLET PO SCH (21:38)
[2023-03-10] MEDS: DICYCLOMINE HCL 10 MG CAP PO PRN (21:39)
[2023-03-10] MEDS: FLUDROCORTISONE ACETATE 0.1 MG TAB PO SCH (21:39)
[2023-03-10] MEDS: FAMOTIDINE 20 MG TAB PO SCH (21:40)
[2023-03-10] MEDS: FEXOFENADINE HCL 180 MG TAB PO SCH (21:40)
[2023-03-10] MEDS: GABAPENTIN 250 MG/5 ML 470 ML BTL PO SCH (21:41)
[2023-03-10] MEDS: MULTIVITAMIN TAB PO SCH (21:41)
[2023-03-10] MEDS: NSS + 20MEQ KCL 20 MEQ/1,000 ML BAG IV SCH (21:46)
[2023-03-10] MEDS ORDERED: SODIUM CHLORIDE 0.9% IV PRN (22:00)
[2023-03-10] MEDS ORDERED: KETAMINE HCL IV PRN (22:00)
[2023-03-10] MEDS: ICU Protocol for HYPERglycemia SCH (22:13)
[2023-03-10] MEDS: KETAMINE HCL IV PRN (22:28)
[2023-03-10] MEDS: SODIUM CHLORIDE 0.9% IV PRN (22:28)
[2023-03-10] MEDS: oxyCODONE HCL SOLN 5 MG/5 ML UDC PO PRN (23:39)
[2023-03-10] MEDS: CHECK fentaNYL PATCH PLACEMENT SCH (23:40)
[2023-03-11] MEDS: SODIUM CHLORIDE 0.9% IV PRN ×7 (01:11→22:55)
[2023-03-11] MEDS: KETAMINE HCL IV PRN ×7 (01:11→22:55)
[2023-03-11] MEDS: LORazepam 0.5 mg IV INJ IV PRN ×3 (03:40→16:50)
[2023-03-11] MEDS ORDERED: levoFLOXacin/D5W 750 MG/150 ML BAG IV SCH (04:00)
[2023-03-11 04:01] LABS: BUN Creatinine Ratio 7.4 (10-20); Calcium 8.3 mg/dl (8.6-10.3); Creatinine Clr Calc Pharmacy 112.2 ml/min; Est GFR (African American) 135.1 ml/min; Est GFR (Non-African American) 116.6 ml/min; Magnesium 1.9 mg/dl (1.7-2.4); Potassium 3.4 mmol/L (3.5-5.1)
[2023-03-11 04:02] LABS: Albumin Globulin Ratio 1.7 (0.9-2); Albumin Level 3.4 gm/dl (3.4-5.0); Bilirubin,Total 0.3 mg/dl (0.2-1.0); Total Protein 5.4 gm/dl (6.0-8.3)
[2023-03-11 04:06] LABS: Basophils # (auto) 0.04 K/uL (0.00-0.20); Basophils % (auto) 0.7 %; Eosinophils # (auto) 0.13 K/uL (0.00-0.50); Eosinophils % (auto) 2.2 %; Hematocrit (blood only) 33.7 % (37.0-47.0); Hemoglobin 11.3 g/dl (12.0-16.0); Immature Granulocytes # (auto) 0.01 K/uL (0.01-0.20); Immature Granulocytes % (auto) 0.2 %; Mean Corpuscular Hemoglobin 30.5 pg (25.0-34.0); Mean Corpuscular Hgb Conc 33.5 g/dL (32.0-36.0); Mean Corpuscular Volume 91.1 fL (80.0-100.0); Mean Platelet Volume 10.5 fL (9.4-12.4); Monocytes % (auto) 11.6 %; Neutrophils # (auto) 3.33 K/uL (1.40-6.50); Neutrophils % (auto) 55.3 %; Platelet Count 294 K/uL (130-400); RDW Coefficient of Variation 13.5 % (11.5-14.5); RDW Standard Deviation 44.6 fL (36.4-46.3); White Blood Count 6.01 K/ul (4.8-10.8)
[2023-03-11 04:30] LABS: Phosphorus 4.5 mg/dl (2.5-4.9)
[2023-03-11] MEDS: LEVOTHYROXINE SODIUM 50 MCG TABLET PO SCH (05:49)
[2023-03-11] MEDS ORDERED: MAGNESIUM SULFATE / D5W 1 GM/100 ML BAG IV ONE (06:13)
[2023-03-11] MEDS: POTASSIUM CHLORIDE / WTR 10 MEQ/100 ML PLCT IV SCH ×4 (06:42→10:04)
[2023-03-11] MEDS: oxyCODONE HCL SOLN 5 MG/5 ML UDC PO PRN ×3 (06:46→20:36)
[2023-03-11] MEDS: ONDANSETRON INJ 2 MG/ML 2 ML VIAL IV PRN ×3 (06:46→18:36)
[2023-03-11] MEDS: PANTOprazole 40 MG TAB PO SCH (08:04)
[2023-03-11] MEDS: METHOCARBAMOL 750 MG TABLET PO SCH ×3 (08:04→20:37)
[2023-03-11] MEDS: PYRIDOXINE HCL 50 MG TAB PO SCH (08:04)
[2023-03-11] MEDS: FAMOTIDINE 20 MG TAB PO SCH ×2 (08:04→20:39)
[2023-03-11] MEDS: FLUDROCORTISONE ACETATE 0.1 MG TAB PO SCH ×2 (08:04→20:39)
[2023-03-11] MEDS: HYDROCORTISONE 10 MG TAB PO SCH ×2 (08:05→12:52)
[2023-03-11] MEDS: CHOLECALCIFEROL 1,000 UNITS 25 MCG TAB PO SCH (08:06)
[2023-03-11] MEDS: DULoxetine HCL 60 MG CAP PO SCH (08:06)
[2023-03-11] MEDS: GABAPENTIN 250 MG/5 ML 470 ML BTL PO SCH ×3 (08:07→20:42)
[2023-03-11] MEDS: BETHANECHOL CHL 25 MG TAB PO PRN ×2 (08:10→20:37)
[2023-03-11] MEDS: DICYCLOMINE HCL 10 MG CAP PO PRN ×2 (08:11→20:38)
--- NOTE | 2023-03-11 08:28 | Pain Management Progress Note ---
Date of Service March 11, 2023 Assessment & Plan (1) Visceral hyperalgesia: (2) Infection due to Port-A-Cath: Plan 1. Spinal cord stimulator site appears to be appropriate at this time with removal yesterday. Decision making regarding permanent implantation will be held at this time with further decision-making per Dr. Hawkins 2. Patient will continue with ketamine 5 mg IV for as needed breakthrough pain acute [address] Hawkins Admission and Anticipated Discharge Date Admission Date: March 10, 2023 Subjective Ms. Garcia is a 33-year-old white female who is well-known to the pain service due to her chronic abdominal pain/visceral hyperalgesia with opioid dependency, who was recently undergoing spinal cord stimulator trial and attempt to diminish her chronic abdominal pain complaints. The patient was admitted yesterday with primary complaint of seizure as she had reported multiple seizures due to her pain complaints. She is reporting pain in the chest and abdominal locations. She also recently had removal of infected a port. Due to positive culture she is currently on IV antibiotic therapy with levofloxacin. Due to these findings her spinal cord stimulator lead was removed by Dr. Hawkins yesterday upon admission. Her spinal cord stimulator was placed last week and she was reporting some diminished frequency of seizure activity throughout the trial. She underwent spinal cord stimulator adjustment with Genevieve wall 2 days ago in pain clinic office. Patient is reporting her abdominal pain is similar location and characteristic as chronic. She was initiated on IV ketamine per Dr. Hawkins yesterday. She reports this is being somewhat helpful at diminishing the severity of her pain. Patient has no f urther constitutional complaints. Plan of care discussed with Dr. Hawkins. Pain Assessment Pain Assessment Pain scale - at its best (0-10): 6 Pain scale - at its worst (0-10): 8 Physical Exam Physical Exam: General: Patient lying quietly upon entering the room in no acute distress accompanied by her mother. Speech and thought process appropriate. Cognition intact. Back/spine: Patient able to logroll towards her right side without restriction and no increased pain. Spinal cord stimulator insertional site was visualized after Band-Aid was removed. There is no evidence of edema, erythema or skin breakdown. There is no evidence of tenderness to palpation. Neurologic: Cranial nerves grossly intact.
[2023-03-11] MEDS: CHECK fentaNYL PATCH PLACEMENT SCH ×2 (08:40→14:59)
--- NOTE | 2023-03-11 08:47 | Critical Care Progress Note ---
Date of Service March 11, 2023 Assessment & Plan (1) Seizure-like activity: (2) Epigastric abdominal pain: (3) Pain disorder: (4) Infection due to Port-A-Cath: Plan Impression: 33-year-old female with visceral hyperalgesia and acute on chronic abdominal pain and associated Superman's enteric artery syndrome. The patient had a stimulator implant placed for pain control. Unfortunately she appears to have had a intravascular infection with recent removal of a port which is growing methicillin sensitive Staph aureus as well as Pseudomonas. She had been on daptomycin and Cipro. ID consultation is pending. She presented to the emergency room due to lethargy and had her temporary stimulator removed due to concerns about infection. She is in the ICU as she is receiving ketamine for pain control. Recommendations: 1. Acute on chronic pain syndrome: Management per pain services. We will continue monitor in ICU while receiving ketamine per protocol. 2. Intravascular infection: ID consultation pending. White blood cell count normal. Procalcitonin undetectable. Blood cultures from 03/10 negative. Cultures from the chest port 03/05/2023 growing methicillin sensitive Staph aureus and pansensitive Pseudomonas. Day #2 Levaquin daptomycin. Would like to avoid fluoroquinolones as they may be the only oral agents in the antipseudomonal class that we can use in the future. Cefepime which should cover both staph and Pseudomonas. The patient lists allergies to amoxicillin and cefazolin cephalosporins and penicillins although notes indicate that she is taking first and second generation cephalosporins as well as Zosyn in the past without adverse effect. We will monitor at this point in time. Long-term antibiotic plan per ID. 3. History of adrenal insufficiency. No indication for adrenal crisis. Continue baseline 4. Mild anemia. No evidence of acute blood loss currently. No indication for transfusion. Continue to follow clinically. 5. Hypokalemia: Initiate ICU electrolyte replacement protocol. 6. Patient's other outpatient medications will be continued. DVT prophylaxis not necessary as the patient is at her baseline level of activity. We will continue to monitor in the ICU until the patient no longer requires ketamine for [facility] protocol. Family updated at bedside. Admission and Anticipated Discharge Date Admission Date: March 10, 2023 Subjective Patient seen and examined. EMR reviewed. Discussed with patient, mother, and critical care nurse at bedside. The patient states she had a reasonably good night. Her pain is adequately controlled. She is not having any pain at her port site or her stimulator explant site. No acute issues overnight Review of Systems Review of Systems: All systems reviewed & are unremarkable except as noted in Subjective Physical Exam Constitutional: WD/WN, vitals as above Neck: trachea midline, no thyromegaly Respiratory: normal respiratory effort, lungs clear to auscultation Cardiovascular: RRR, no murmur, no edema Gastrointestinal (Abdomen): normal bowel sounds, soft, nontender, no hepatosplenomegaly Musculoskeletal: Extremities: extremities normal to inspection Skin: no rashes, warm and dry Port site dressed without erythema fluctuance or tenderness to palpation. Stimulator explant site also dressed and clean dry and intact Neurologic: Nonfocal exam Lymphatic: no cervical lymphadenopathy Results & Data Results & Data Vital Signs (Past 12 Hours) Vital Signs Temp Pulse Resp BP Pulse Ox O2 Del Method 03/11/23 06:11 104/73 03/11/23 06:00 74 11 L 97 03/11/23 05:00 76 11 L 96 03/11/23 04:00 85 24 96 03/11/23 04:00 103/73 03/11/23 03:00 73 8 L 95 Room Air 03/11/23 03:00 95/78 L 03/11/23 02:00 89 10 L 95 Room Air 03/11/23 02:00 106/64 03/11/23 03:43 36.6 C 03/11/23 01:10 77 7 L 96 03/11/23 01:00 70 11 L 96 03/11/23 01:00 113/75 03/11/23 00:50 80 8 L 96 03/11/23 00:40 76 9 L 97 03/11/23 00:30 76 10 L 97 03/11/23 00:20 77 6 L 97 03/11/23 00:10 83 8 L 96 03/11/23 00:00 81 10 L 96 03/11/23 00:00 109/71 03/10/23 23:36 36.7 C 03/10/23 23:00 79 16 97 03/10/23 23:00 111/75 03/10/23 22:50 84 11 L 97 03/10/23 22:40 85 12 98 03/10/23 22:30 76 11 L 96 03/10/23 22:20 84 6 L 98 03/10/23 22:13 118/78 03/10/23 22:13 86 8 L 97 03/10/23 22:10 78 13 98 03/10/23 22:00 111 H 25 H 97 03/10/23 21:50 68 17 98 03/10/23 21:40 68 21 97 03/10/23 21:30 73 17 95 03/10/23 21:20 62 14 97 03/10/23 21:10 87 12 96 03/10/23 22:19 86 03/10/23 20:45 74 03/10/23 21:00 107 H 8 L 93 Critical Care Results & Data Vital Signs (Past 12 Hours) Vital Signs Temp Pulse Resp BP Pulse Ox O2 Del Method 03/11/23 06:11 104/73 03/11/23 06:00 74 11 L 97 03/11/23 05:00 76 11 L 96 03/11/23 04:00 85 24 96 03/11/23 04:00 103/73 03/11/23 03:00 73 8 L 95 Room Air 03/11/23 03:00 95/78 L 03/11/23 02:00 89 10 L 95 Room Air 03/11/23 02:00 106/64 03/11/23 03:43 36.6 C 03/11/23 01:10 77 7 L 96 03/11/23 01:00 70 11 L 96 03/11/23 01:00 113/75 03/11/23 00:50 80 8 L 96 03/11/23 00:40 76 9 L 97 03/11/23 00:30 76 10 L 97 03/11/23 00:20 77 6 L 97 03/11/23 00:10 83 8 L 96 03/11/23 00:00 81 10 L 96 03/11/23 00:00 109/71 03/10/23 23:36 36.7 C 03/10/23 23:00 79 16 97 03/10/23 23:00 111/75 03/10/23 22:50 84 11 L 97 03/10/23 22:40 85 12 98 03/10/23 22:30 76 11 L 96 03/10/23 22:20 84 6 L 98 03/10/23 22:13 118/78 03/10/23 22:13 86 8 L 97 03/10/23 22:10 78 13 98 03/10/23 22:00 111 H 25 H 97 03/10/23 21:50 68 17 98 03/10/23 21:40 68 21 97 03/10/23 21:30 73 17 95 03/10/23 21:20 62 14 97 03/10/23 21:10 87 12 96 03/10/23 22:19 86 03/10/23 21:00 107 H 8 L 93 Lab & Micro Results (Past 24 Hours) RBC 3.70 M/uL (4.20-5.40) L 03/11/23 WBC 6.01 K/ul (4.8-10.8) 03/11/23 Hgb 11.3 g/dl (12.0-16.0) L 03/11/23 Hct 33.7 % (37.0-47.0) L 03/11/23 MCV 91.1 fL (80.0-100.0) 03/11/23 MCH 30.5 pg (25.0-34.0) 03/11/23 MCHC 33.5 g/dL (32.0-36.0) 03/11/23 RDW Standard Deviation 44.6 fL (36.4-46.3) 03/11/23 RDW Coefficient of Variation 13.5 % (11.5-14.5) 03/11/23 Plt Count 294 K/uL (130-400) 03/11/23 MPV 10.5 fL (9.4-12.4) 03/11/23 Neutrophils (%) (Auto) 55.3 % 03/11/23 Lymphocytes (%) (Auto) 30.0 % 03/11/23 Monocytes # (Auto) 0.70 K/uL (0.11-0.59) H 03/11/23 Eosinophils # (Auto) 0.13 K/uL (0.00-0.50) 03/11/23 Immature Granulocyte % (Auto) 0.2 % 03/11/23 Neutrophils # (Auto) 3.33 K/uL (1.40-6.50) 03/11/23 Lymphocytes # (Auto) 1.80 K/uL (1.20-3.40) 03/11/23 Monocytes # (Auto) 0.70 K/uL (0.11-0.59) H 03/11/23 Eosinophils # (Auto) 0.13 K/uL (0.00-0.50) 03/11/23 Basophils # (Auto) 0.04 K/uL (0.00-0.20) 03/11/23 Immature Granulocyte # (Auto) 0.01 K/uL (0.01-0.20) 3 Na 144 mmol/L (136-145) 03/11/23 K 3.4 mmol/L (3.5-5.1) L 03/11/23 Cl 108 mmol/L (98-107) H 03/11/23 CO2 31 mmol/L (21-32) 03/11/23 Anion Gap 5 (3-11) 03/11/23 BUN 5 mg/dl (6-23) L 03/11/23 Creatinine 0.68 mg/dl (0.6-1.2) 03/11/23 Estimated GFR ( Amer) 135.1 ml/min 03/11/23 Estimated GFR (Non-Af Amer) 116.6 ml/min 03/11/23 BUN/Creatinine Ratio 7.4 (10-20) L 03/11/23 Glu 86 mg/dl (70-99(Fasting)) 03/11/23 Ca 8.3 mg/dl (8.6-10.3) L 03/11/23 Phosphorus Level 4.5 mg/dl (2.5-4.9) 03/11/23 Total Bilirubin 0.3 mg/dl (0.2-1.0) 03/11/23 Direct Bilirubin 0.0 mg/dl (0-0.2) 03/10/23 AST 14 U/L (13-39) 03/11/23 ALT 15 U/L (7-52) 03/11/23 Alkaline Phosphatase 68 U/L (34-104) 03/11/23 TP 5.4 gm/dl (6.0-8.3) L 03/11/23 Albumin 3.4 gm/dl (3.4-5.0) 03/11/23 Globulin 2.0 gm/dl (2.5-4.0) L 03/11/23 Albumin/Globulin Ratio 1.7 (0.9-2) 03/11/23 Mg 1.9 mg/dl (1.7-2.4) 03/11/23 03:23 Calcium Level 8.3 mg/dl (8.6-10.3) L 03/11/23 03:23 Diagnostic Findings (Past 24 Hours) Chest X-Ray 03/10/23 14:29 XR chest 1V portable HISTORY: 33 years-old Female Sepsis acute sepsis COMPARISON: 11/06/2022 TECHNIQUE: AP view of the chest FINDINGS: Cardiomediastinal and hilar silhouettes are unchanged. Right IJ [id number] catheter is noted with distal tip in the expected location of the mid SVC. Interval removal of the left-sided catheter. Spinal stimulator leads are noted with distal tips overlying the mid thoracic spine. No pneumothorax, pleural effusion or airspace consolidation. Ill-defined right upper lung opacities. IMPRESSION: Mild Ill-defined right upper lobe opacities are likely secondary to summation density. No definite evidence of pneumonia. ACT 112: Negative or not required by law. The above report was generated using voice recognition software. It may contain grammatical, syntax or spelling errors. Electronically signed by: Derrek Sow M.D. 03/10/2023 3:29 PM I & O Totals 24 Hours 03/10/23 03/11/23 03/12/23 06:59 06:59 06:59 Intake Total 650.4 / 650.4 100 / 100 Output Total 400 / 400 Balance 250.4 / 250.4 100 / 100 Cumulative 03/10/23 13:36 thru 03/11/23 07:42 Intake Total 750.4 Output Total 400 Balance 350.4 RT Ventilator Mngmt (Last Documented) Ventilator Ordered Settings Respiratory Rate 11 03/11/23 06:00 Ventilator - PT Measurements Respiratory Rate 11 End-Tidal CO2 34 Coding Level of Care Code 36950 SUB INP/OBS CARE 3/50MIN Diagnoses Seizure-like activity R56.9 Epigastric abdominal pain R10.13 Pain disorder R52 Infection due to Port-A-Cath T80.219A
[2023-03-11] MEDS: ICU Protocol for HYPERglycemia SCH ×4 (09:24→22:04)
[2023-03-11] MEDS: CEFEPIME 2,000 MG in SYRINGE 0 ML IV SCH ×2 (10:02→16:50)
[2023-03-11] MEDS: NSS + 20MEQ KCL 20 MEQ/1,000 ML BAG IV SCH ×2 (10:04→22:48)
[2023-03-11] MEDS ORDERED: HEPARIN 100 UNIT/ML 5ML FLUSH FLUSH PRN (10:19)
--- NOTE | 2023-03-11 13:55 | Hospitalist Progress Note ---
Date of Service March 11, 2023 Assessment & Plan (1) Central line infection: Plan: Well is a little bit worrisome that she did have rigors that sounds like they lasted 15-30 minutes, thus far blood cultures are negative. Her port did grow both Pseudomonas and MSSAshe was initially started on a tammi quinolone which would likely cover both, and has now been switched to cefepime which also likely would cover both. Will follow given that she does have hives listed as an allergy to cephalosporins, but thus far no reaction has been noted. Given that it was a central line infection, given that she did have rigors, and given that she does have a line in on the opposite side, will follow cultures for several days before being able to truly call this simply a line infection not with subsequent bacteremia, but hopefully this will be the case, and thus far her blood cultures are negative. Spinal cord stimulator trial lead was removednothing appearing grossly infectious about it, cultures on the lead are thus far negative as well. (It is listed in the EMR under "catheter tip, PICC" because there was nowhere in the orders to culture a spinal cord stimulator lead) the former port site itself looks clean dry intact with no evidence of cellulitis, abscess, exudate, etc. (2) Visceral hyperalgesia: Plan: in discussion with the patient, it seems that the spinal cord stimulator trial was showing improvement, the question would be whether it was enough improvement to be a superior option compared to intrathecal pump. Pain management weighing options, agree that an ongoing weighing of risks and benefits of both approaches is the right way to follow through. Unfortunately until this infection is cleared no further progress can be made on this, but will try to facilitate fu rther progress/therapeutic trial/etc. as quickly as possible after the infection has cleared in the meantime, we will follow her pain now that the spinal cord stimulator trial lead is out, as that may also provide some degree of clue as far as the pain relief it was providing thus far; will continue with our current mode of treatment with as needed ketamine which has been helpful in controlling the pain/providing respite from the pain, while minimizing narcotics that could impact GI motility (3) DVT prophylaxis: Plan: ambulation (4) Discharge planning issues: Plan: ICU given the need for ketamine. Anticipate her going home once the infectious situation is sorted out (i.e. once its clear that there is or is not bacteremia and the final treatment plan has been set up); once out of the hospital we will need to facilitate tight pain management follow-up as soon as the infection has cleared. Admission and Anticipated Discharge Date Admission Date: March 10, 2023 Subjective Some abdominal painfeels like maybe a little bit worse since spinal cord trial stimulator was removed yesterday. Has not had much as far as pseud oseizures today, however. Discussed with pain management yesterday evening, input greatly appreciated. In regards to infection, she notes that the site of port removal is not very tender. She did not have any fevers she recalls at home, but she did have truly shaking chills that lasted for 15-30 minutes few times. Mother present at the bedside as well, answered all questions the best my ability and to patient and mother's satisfaction. Review of Systems Review of Systems: All systems reviewed & are unremarkable except as noted in HPI & below Physical Exam Physical Exam: In general she is awake and alert fatigued mildly uncomfortable but no distress. HEENT normocephalic atraumatic mucous membranes moist. Left upper chest port site appears clean dry and intact with no fluctuance surrounding erythema no exudate able to be expressed. Neuro shows cranial nerves II through XII are grossly intact gross motor and sensory intact. Results & Data Results & Data Vital Signs (Past 12 Hours) Vital Signs Temp Pulse Resp BP Pulse Ox O2 Del Method 03/11/23 11:00 75 12 03/11/23 11:00 108/76 03/11/23 10:00 69 11 L 95 Room Air 03/11/23 10:00 103/71 03/11/23 09:10 105/75 03/11/23 09:10 88 97 03/11/23 09:00 79 03/11/23 08:31 129/95 03/11/23 08:31 111 H 13 97 03/11/23 08:00 96 H 95 03/11/23 07:00 72 12 95 03/11/23 07:00 103/74 03/11/23 08:45 97.9 F 03/11/23 06:11 104/73 03/11/23 06:00 74 11 L 97 03/11/23 05:00 76 11 L 96 03/11/23 04:00 85 24 96 10/25/23 04:00 103/73 03/11/23 03:00 73 8 L 95 Room Air 03/11/23 03:00 95/78 L 03/11/23 02:00 89 10 L 95 Room Air 03/11/23 02:00 106/64 03/11/23 03:43 97.9 F PG Care Time/CCT Total # of Minutes Spent Total Time Spent with Patient: Total time spent is greater than 50% in coordination of care (as documented) at patient's floor/unit and/or counseling patient: Coding Level of Care Code 82798 SUB INP/OBS CARE 3/50MIN Diagnoses Central line infection T80.219A Visceral hyperalgesia R19.8 DVT prophylaxis Z29.9 Discharge planning issues Z02.9
--- NOTE | 2023-03-11 13:56 | Infectious Disease Consult ---
Date of Consultation March 11, 2023 Assessment & Plan (1) Central line infection: (2) Pseudomonas aeruginosa infection: (3) Infection due to Port-A-Cath: Plan #Port site infection s/p removal #PCN and cephalexin (tolerates Keflex) 33-year-old female with a past medical history including antibiotic allergies (PCN, cefazolin) chronic abdominal pain, adrenal insufficiency, hypothyroidism, visceral hyperalgesia, chronic continuous use of opioids, SMAS, chronic severe protein calorie malnutrition, recent admitted from 02/24-03/01/2023, During her recent admission, her port was noted to be inflammed. She was given cephalexin at that time. She presented to ED on 03/03 with port site infection and discharged wit close surgery follow up On 03/10 she presented to [facility] via EMS for evaluation of an infected port (s/p removal) She was contacted on day of admit and told that her cultures were positive and she needed admission for IV antibiotics. There was concern for seizure activity as well. Initial labs showed WBC 4.53, 0.63 03/05 Cath tip cultures grew Staph aureus x3 colonies these are now reported as MSSA. Chest wall port site growing both PSA, no resistance, and MSSA, 03/10 Blood cultures are in lab and no growth to date. RECOMMEND I agree with Cefepime as this would cover BOTH MSSA and Pseudomonas Would continue with Cefepime 2G IV TID Hold on any central lines until we have documented blood cultures negative for at least 48 hours on appropriate abx Cony Mujica MD Infectious Diseases Consultation Information Consultation was provided via telemedicine using two-way real-time interactive telecommunication between the patient and the telemedicine provider. For the duration of the visit, the provider was performing the assessment from a different facility than the patient. This includesuse of bluetooth stethoscope forauscultationperformed by the telepresenter that the telemedicine provider can hear if described in the physical exam. Manager Business Continuity contact information: Please call [facility] . (Phone Number For Physician Use Only) After establishing a telemedicine visit, patient was: Patient was verified with two unique identifiers, Patient/authorized rep acknowledged consent and understanding and Gave permission to continue telehealth session Time Spent with Patient: Initial => 55 min History of Present Illness Reason for Consultation: Port site infection Requesting Physician: Dr. Layne Attending Physician: Ramses Layne, DO History of Present Illness 33-year-old female with a past medical history including antibiotic allergies (PCN, cefazolin) chronic abdominal pain, adrenal insufficiency, hypothyroidism, visceral hyperalgesia, chronic continuous use of opioids, SMAS, chronic severe protein calorie malnutrition, recent admitted from 02/24-03/01/2023, During her recent admission, her port was noted to be inflammed. She was given cephalexin at that time. She presented to ED on 03/03 with port site infection and discharged wit close surgery follow up On 03/10 she presented to [facility] via EMS for evaluation of an infected port (s/p removal) She was contacted on day of admit and told that her cultures were positive and she needed admission for IV antibiotics. There was concern for seizure activity as well. Initial labs showed WBC 4.53, 0.63 03/05 Cath tip cultures grew Staph aureus x3 colonies these are now reported as MSSA. Chest wall port site growing both PSA, no resistance, and MSSA, 03/10 Blood cultures are in lab and no growth to date. Allergies Allergy/AdvReac Type Severity Reaction Status Date / Time diphenhydramine Allergy Severe Anaphylaxis Verified 03/10/23 15:13 promethazine Allergy Severe hives, Verified 03/10/23 15:13 throat swelling adhesive Allergy Intermediate Redness of Verified 03/10/23 15:13 Skin amoxicillin Allergy Intermediate RASH Verified 03/10/23 15:13 calcium Allergy Intermediate SEE COMMENT Verified 03/10/23 15:13 [From VIACTIV Multi-Vitamin] cefazolin Allergy Intermediate rash Verified 03/10/23 15:13 Cephalosporins Allergy Intermediate HIVES Verified 03/10/23 15:13 clavulanic acid Allergy Intermediate HIVES Verified 03/10/23 15:13 ferric carboxymaltose Allergy Intermediate Rash Verified 03/10/23 15:13 [From Injectafer] folic acid Allergy Intermediate SEE COMMENT Verified 03/10/23 15:13 [From VIACTIV Multi-Vitamin] iron [From Venofer] Allergy Intermediate Muscle Pain Verified 03/10/23 15:13 multivitamin with minerals Allergy Intermediate SEE COMMENT Verified 03/10/23 15:13 [From VIACTIV Multi-Vitamin] Penicillins Allergy Intermediate HIVES Verified 03/10/23 15:13 prochlorperazine Allergy Intermediate HIVES Verified 03/10/23 15:13 sulfamethoxazole Allergy Intermediate RASH Verified 03/10/23 15:13 sumatriptan Allergy Intermediate RASH Verified 03/10/23 15:13 trimethoprim Allergy Intermediate RASH Verified 03/10/23 15:13 metoclopramide AdvReac Severe anxiety/ Verified 03/10/23 15:13 jittery morphine AdvReac Severe Severe Verified 03/10/23 15:13 abdominal Pain, sphincter of oddi spasms erythromycin base AdvReac Intermediate GI SYMPTOMS Verified 03/10/23 15:13 citalopram [From Celexa] AdvReac Unknown CAN'T Verified 03/10/23 15:13 REMEMBER Home Medications Medication Instructions Recorded Confirmed Type dicyclomine 10 mg capsule 20 mg PO Q6H PRN Abdominal Pain 03/07/18 03/10/23 History pantoprazole 40 mg tablet,delayed 40 mg PO QAM 09/08/19 03/10/23 History release (Protonix) famotidine 40 mg tablet 20 mg PO BID 11/28/19 03/10/23 History hydrocortisone 10 mg tablet See Rx Instructions .Route .COMPLEX 02/07/20 03/10/23 History fexofenadine 180 mg tablet 180 mg PO HS 10/09/20 03/10/23 History fludrocortisone 0.1 mg tablet 0.1 mg PO BID 12/12/20 03/10/23 History acetaminophen 500 mg tablet 1,000 mg PO Q6H PRN Pain 06/13/21 03/10/23 History (Tylenol Extra Strength) multivitamin with minerals-folic 2 tab PO HS 06/13/21 03/10/23 History acid 200 mcg chewable tablet (Multivitamin Gummies) turmeric 400 mg capsule 400 mg PO HS 06/13/21 03/10/23 History empty container (Enema Misc Bottle) #72 ea 01/16/22 03/06/23 Rx cholecalciferol (vitamin D3) 25 50 mcg PO QAM 04/07/22 03/10/23 History mcg (1,000 unit) capsule (Vitamin D3) duloxetine 60 mg capsule,delayed 60 mg PO QAM 04/07/22 03/10/23 History release methocarbamol 750 mg tablet 750 mg PO TID 04/07/22 03/10/23 History coenzyme Q10 100 mg capsule 100 mg PO PM 03/07/23 10/24/23 History (CoQ-10) pyridoxine (vitamin B6) 50 mg 50 mg PO QAM 07/22/22 03/10/23 History tablet ondansetron 8 mg disintegrating 8 mg PO TID PRN Nausea 10/06/22 03/10/23 History tablet fentanyl 75 mcg/hr transdermal 1 patch transdermal Q72H #10 ea 10/23/22 03/10/23 Rx patch lorazepam 2 mg/mL injection 0.5 mg (0.25 mL) buccal QID PRN 12/04/22 03/10/23 Rx solution (Ativan) Nausea #100 mL bethanechol chloride 25 mg tablet 12.5 mg PO BID PRN urinary 12/05/22 03/10/23 Rx retention #20 tabs oxycodone 5 mg/5 mL oral solution 5 mg (5 mL) PO Q4H PRN pain #250 mL 12/05/22 03/10/23 Rx levothyroxine 50 mcg tablet 50 mcg PO QAM 03/04/23 03/10/23 History (Synthroid) calcium 250 mg tablet 250 mg PO PM 03/05/23 03/10/23 History gabapentin 250 mg/5 mL oral 900 mg PO TID 03/10/23 03/10/23 History solution Patient History Medical History Abdominal pain Asthma Chronic migraine Chronic, continuous use of opioids Colitis Dehydration "kind of always dehydrated" Diversion colitis Elevated lipase Endometriosis has had 3 surgeries for this. 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 Hypotension Intussusception hx Nausea Pancreatitis hx PICC (peripherally inserted central catheter) in place TPN POTS (postural orthostatic tachycardia syndrome) f/u dr. carroll, [facility] SMAS (superior mesenteric artery syndrome) History of SMAS Sphincter of Oddi dysfunction DECREASED GI MOTILITY Spinal cord stimulator status trial implanted 03/02/23, in dr. ramírez's office>advised to bring remote Transaminitis Uses feeding tube gastroparesis and decreased GI motility can not tolerate feeding and uses TPN Surgical History H/O adenoidectomy H/O laparoscopy H/O lumpectomy right breast 2011 History of appendectomy History of bowel resection Part of duodenum removed due to necrosis; done at [facility] 2019 History of esophagogastroduodenoscopy (EGD) History of hysterectomy 09/27/19 History of removal of Port-a-Cath 10/13/[address] Geiger, [facility], due to bacteremia/sepsis.; "inserted and removed multiple times" History of vascular access device 2018; implanted and removed "several" times Hx of colonoscopy during procedure perforated small bowel 10/27/2019 at [facility], subsequent repair of duodenal area. Hx of ileostomy Hx of tonsillectomy S/P cholecystectomy 2015 S/P wrist surgery right Family History Father Hyperlipidemia Other No significant family history Social History Smoking Status: Never smoker Second Hand Exposure: No; Do You Dip or Chew Tobacco: No; Hx Alcohol Use: No Hx Substance Use: No Preferred Language: Azeri Communication Ability: Effective Visual Impairment: No Limitations Hearing Ability: Normal Crimper Operator Required: No Beliefs That Will Affect Care: None marital status: Single Current Living Situation: Parent and Family Current Living Situation Comment: Patient lives at home with both parents current occupational status: unemployed current occupation: completed 4-year degree at [employer] How many Children do You have: 0 Feels Safe at Home: Yes Diet: regular Sexual Activity Comment: not sexually active Assistive Devices: Crutches and Wheelchair Results & Data Vital Signs (Past 12 Hours) Vital Signs Temp Pulse Resp BP Pulse Ox O2 Del Method 03/11/23 11:00 75 12 03/11/23 11:00 108/76 03/11/23 10:00 69 11 L 95 Room Air 03/11/23 10:00 103/71 03/11/23 09:10 105/75 03/11/23 09:10 88 97 03/11/23 09:00 79 03/11/23 08:31 129/95 03/11/23 08:31 111 H 13 97 03/11/23 08:00 96 H 95 03/11/23 07:00 72 12 95 03/11/23 07:00 103/74 03/11/23 08:45 36.6 C 03/11/23 06:11 104/73 03/11/23 06:00 74 11 L 97 03/11/23 05:00 76 11 L 96 03/11/23 04:00 85 24 96 03/11/23 04:00 103/73 03/11/23 03:00 73 8 L 95 Room Air 03/11/23 03:00 95/78 L 03/11/23 02:00 89 10 L 95 Room Air 03/11/23 02:00 106/64 03/11/23 03:43 36.6 C Laboratory Results Laboratory Results - last 48 hr 03/10/23 03/10/23 03/10/23 14:51 14:51 14:51 WBC 4.53 L RBC 3.95 L Hgb 12.1 Hct 36.3 L MCV 91.9 MCH 30.6 MCHC 33.3 RDW Std Deviation 44.0 RDW Coeff of Tim 13.2 Plt Count 322 MPV 10.6 Immature Gran % (Auto) 0.4 Neut % (Auto) 71.6 Lymph % (Auto) 17.4 [place] % (Auto) 8.6 Eos % (Auto) 1.3 Baso % (Auto) 0.7 Neut # (Auto) 3.24 Lymph # (Auto) 0.79 L [place] # (Auto) 0.39 Eos # (Auto) 0.06 Baso # (Auto) 0.03 Immature Gran # (Auto) 0.02 Sodium 141 Potassium 3.4 L Chloride 105 Carbon Dioxide 31 Anion Gap 5 BUN 5 L Creatinine 0.63 Est Cr Clr Drug Dosing 134.0 Est GFR ( Amer) 138.5 Est GFR (Non-Af Amer) 119.5 BUN/Creatinine Ratio 7.9 L Glucose 102 H POC Glucose Lactate Calcium 8.8 Phosphorus Magnesium 2.1 Total Bilirubin 0.3 Direct Bilirubin 0.0 AST 16 ALT 18 Alkaline Phosphatase 77 Total Protein 6.1 Albumin 3.8 Globulin Albumin/Globulin Ratio Procalcitonin < 0.05 Urine Color Urine Appearance Urine pH Ur Specific [place] Urine Protein Urine Glucose (UA) Urine Ketones Urine Blood Urine Nitrite Urine Bilirubin Urine Urobilinogen Ur Leukocyte Esterase Nasal Screen MRSA (PCR) SARS-CoV-2 (PCR) Influenza Type A (PCR) Influenza Type B (PCR) RSV (RT-PCR) 03/10/23 03/10/23 03/10/23 15:02 15:27 19:51 WBC RBC Hgb Hct MCV MCH MCHC RDW Std Deviation RDW Coeff of Tim Plt Count MPV Immature Gran % (Auto) Neut % (Auto) Lymph % (Auto) [place] % (Auto) Eos % (Auto) Baso % (Auto) Neut # (Auto) Lymph # (Auto) [place] # (Auto) Eos # (Auto) Baso # (Auto) Immature Gran # (Auto) Sodium Potassium Chloride Carbon Dioxide Anion Gap BUN Creatinine Est Cr Clr Drug Dosing Est GFR ( Amer) Est GFR (Non-Af Amer) BUN/Creatinine Ratio Glucose POC Glucose Lactate 1.3 Calcium Phosphorus Magnesium Total Bilirubin Direct Bilirubin AST ALT Alkaline Phosphatase Total Protein Albumin Globulin Albumin/Globulin Ratio Procalcitonin Urine Color Yellow Urine Appearance Clear Urine pH 6.0 Ur Specific [place] 1.009 Urine Protein Negative Urine Glucose (UA) Negative Urine Ketones Negative Urine Blood Negative Urine Nitrite Negative Urine Bilirubin Negative Urine Urobilinogen Negative Ur Leukocyte Esterase Negative Nasal Screen MRSA (PCR) SARS-CoV-2 (PCR) NEGATIVE Influenza Type A (PCR) Negative Influenza Type B (PCR) Negative RSV (RT-PCR) Negative 03/10/23 03/10/23 03/11/23 21:00 21:45 03:23 WBC 6.01 RBC 3.70 L Hgb 11.3 L Hct 33.7 L MCV 91.1 MCH 30.5 MCHC 33.5 RDW Std Deviation 44.6 RDW Coeff of Tim 13.5 Plt Count 294 MPV 10.5 Immature Gran % (Auto) 0.2 Neut % (Auto) 55.3 Lymph % (Auto) 30.0 [place] % (Auto) 11.6 Eos % (Auto) 2.2 Baso % (Auto) 0.7 Neut # (Auto) 3.33 Lymph # (Auto) 1.80 [place] # (Auto) 0.70 H Eos # (Auto) 0.13 Baso # (Auto) 0.04 Immature Gran # (Auto) 0.01 Sodium Potassium Chloride Carbon Dioxide Anion Gap BUN Creatinine Est Cr Clr Drug Dosing Est GFR ( Amer) Est GFR (Non-Af Amer) BUN/Creatinine Ratio Glucose POC Glucose 79 Lactate Calcium Phosphorus Magnesium Total Bilirubin Direct Bilirubin AST ALT Alkaline Phosphatase Total Protein Albumin Globulin Albumin/Globulin Ratio Procalcitonin Urine Color Urine Appearance Urine pH Ur Specific [place] Urine Protein Urine Glucose (UA) Urine Ketones Urine Blood Urine Nitrite Urine Bilirubin Urine Urobilinogen Ur Leukocyte Esterase Nasal Screen MRSA (PCR) Negative SARS-CoV-2 (PCR) Influenza Type A (PCR) Influenza Type B (PCR) RSV (RT-PCR) 03/11/23 03/11/23 03/11/23 03:23 08:44 16:04 WBC RBC Hgb Hct MCV MCH MCHC RDW Std Deviation RDW Coeff of Tim Plt Count MPV Immature Gran % (Auto) Neut % (Auto) Lymph % (Auto) [place] % (Auto) Eos % (Auto) Baso % (Auto) Neut # (Auto) Lymph # (Auto) [place] # (Auto) Eos # (Auto) Baso # (Auto) Immature Gran # (Auto) Sodium 144 Potassium 3.4 L Chloride 108 H Carbon Dioxide 31 Anion Gap 5 BUN 5 L Creatinine 0.68 Est Cr Clr Drug Dosing 112.2 Est GFR ( Amer) 135.1 Est GFR (Non-Af Amer) 116.6 BUN/Creatinine Ratio 7.4 L Glucose 86 POC Glucose 84 98 Lactate Calcium 8.3 L Phosphorus 4.5 Magnesium 1.9 Total Bilirubin 0.3 Direct Bilirubin AST 14 ALT 15 Alkaline Phosphatase 68 Total Protein 5.4 L Albumin 3.4 Globulin 2.0 L Albumin/Globulin Ratio 1.7 Procalcitonin Urine Color Urine Appearance Urine pH Ur Specific [place] Urine Protein Urine Glucose (UA) Urine Ketones Urine Blood Urine Nitrite Urine Bilirubin Urine Urobilinogen Ur Leukocyte Esterase Nasal Screen MRSA (PCR) SARS-CoV-2 (PCR) Influenza Type A (PCR) Influenza Type B (PCR) RSV (RT-PCR) Diagnostic Findings Chest X-Ray 03/10/23 14:29 XR chest 1V portable HISTORY: 33 years-old Female Sepsis acute sepsis COMPARISON: 11/06/2022 TECHNIQUE: AP view of the chest FINDINGS: Cardiomediastinal and hilar silhouettes are unchanged. Right IJ Aasuoo-j-Gibc catheter is noted with distal tip in the expected location of the mid SVC. Interval removal of the left-sided catheter. Spinal stimulator leads are noted with distal tips overlying the mid thoracic spine. No pneumothorax, pleural effusion or airspace consolidation. Ill-defined right upper lung opacities. IMPRESSION: Mild Ill-defined right upper lobe opacities are likely secondary to summation density. No definite evidence of pneumonia. ACT 112: Negative or not required by law. The above report was generated using voice recognition software. It may contain grammatical, syntax or spelling errors. Electronically signed by: Derrek Sow M.D. 03/10/2023 3:29 PM Medications Administered Current Inpatient Medications Acetaminophen (Acetaminophen 500 Mg Tab) 1,000 mg PO Q6H PRN PRN Reason: Pain or Fever Stop: 04/09/23 20:44 Bethanechol Chloride (Bethanechol Chl 25 Mg Tab) 12.5 mg PO BID PRN PRN Reason: urinary retention Stop: 04/09/23 20:44 Last Admin: 03/11/23 08:10 Dose: 12.5 mg Dicyclomine HCl (Dicyclomine Hcl 10 Mg Cap) 20 mg PO Q6H PRN PRN Reason: Abdominal Pain Stop: 04/09/23 20:44 Last Admin: 03/11/23 08:11 Dose: 20 mg Duloxetine HCl (Duloxetine Hcl 60 Mg Cap) 60 mg PO QAM EMERALD Stop: 04/10/23 08:59 Last Admin: 03/11/23 08:06 Dose: 60 mg Famotidine (Famotidine 20 Mg Tab) 20 mg PO BID EMERALD Stop: 04/09/23 20:59 Last Admin: 03/11/23 08:04 Dose: 20 mg Fentanyl (Fentanyl 75 Mcg/Hr Tdsy) 75 mcg TD Q72H EMERALD Stop: 03/26/23 08:59 Fexofenadine HCl (Fexofenadine Hcl 180 Mg Tab) 180 mg PO HS EMERALD Stop: 04/09/23 20:59 Last Admin: 03/10/23 21:40 Dose: 180 mg Fludrocortisone Acetate (Fludrocortisone Acetate 0.1 Mg Tab) 0.1 mg PO BID EMERALD Stop: 04/09/23 20:59 Last Admin: 03/11/23 08:04 Dose: 0.1 mg Gabapentin (Gabapentin 250 Mg/5 Ml 470 Ml Btl) 900 mg PO TID EMERALD Stop: 04/09/23 20:59 Last Admin: 03/11/23 14:58 Dose: 900 mg Heparin Sodium (Porcine) (Heparin 100 Unit/Ml 5ml Flush) 5 ml FLUSH PRN PRN PRN Reason: Flush Stop: 04/10/23 10:18 Hydrocortisone (Hydrocortisone 10 Mg Tab) 10 mg PO TODAY@1200 [facility] Stop: 04/10/23 11:59 Last Admin: 03/11/23 12:52 Dose: 10 mg Hydrocortisone (Hydrocortisone 10 Mg Tab) 15 mg PO TODAY@0700 [facility] Stop: 04/10/23 06:59 Last Admin: 03/11/23 08:05 Dose: 15 mg Potassium Chloride/Sodium Chloride (Normal Saline W/20 Meq Kcl) 20 meq in 1,000 mls @ 80 mls/hr IV .[id number] [facility] Stop: 04/09/23 20:44 Last Admin: 03/11/23 10:04 Dose: 80 mls/hr Ketamine HCl 5 mg/ Sodium (Chloride) 50.1 mls @ 300.6 mls/hr IV Q1H PRN PRN Reason: Severe Pain (Scale 7, 8, 9,10) Stop: 04/09/23 21:44 Last Admin: 03/11/23 16:49 Dose: 300.6 mls/hr Cefepime HCl 2,000 mg/ Syringe 20 mls @ 5 mls/min IV Q8H [facility]; Protocol Stop: 03/25/23 09:14 Last Admin: 03/11/23 16:50 Dose: 5 mls/min Levothyroxine Sodium (Levothyroxine Sodium 50 Mcg Tablet) 50 mcg PO DAILYBB [facility] Stop: 04/10/23 06:29 Last Admin: 03/11/23 05:49 Dose: 50 mcg Lorazepam (Lorazepam 0.5 Mg Iv Inj) 0.5 mg IV QID PRN PRN Reason: Nausea Stop: 04/09/23 21:11 Last Admin: 03/11/23 16:50 Dose: 0.5 mg Methocarbamol (Methocarbamol 750 Mg Tablet) 750 mg PO TID [facility] Stop: 04/09/23 21:29 Last Admin: 03/11/23 14:58 Dose: 750 mg Miscellaneous (Check Fentanyl Patch Placement) 1 each N/A QS [facility] Stop: 04/10/23 00:00 Last Admin: 03/11/23 14:59 Dose: 1 each Miscellaneous (Fentanyl Patch Remove & Waste) 1 each N/A Q3D [facility] Stop: 04/11/23 08:58 Miscellaneous (Icu Protocol For Hyperglycemia) 1 each N/A ACHS [facility] Stop: 03/12/23 20:59 Last Admin: 03/11/23 16:24 Dose: Not Given Multivitamins (Multivitamin Tab) 2 tab PO HS [facility] Stop: 04/09/23 21:29 Last Admin: 03/10/23 21:41 Dose: Not Given Ondansetron HCl (Ondansetron Inj 2 Mg/Ml 2 Ml Vial) 4 mg IV Q6H PRN PRN Reason: NAUSEA/VOMITING Stop: 04/09/23 17:51 Last Admin: 03/11/23 12:53 Dose: 4 mg Oxycodone HCl (Oxycodone Hcl Soln 5 Mg/5 Ml Udc) 5 mg PO Q4H PRN PRN Reason: Moderate Pain (Scale 4, 5, 6) Stop: 03/24/23 20:44 Last Admin: 03/11/23 11:49 Dose: 5 mg Pantoprazole Sodium (Pantoprazole 40 Mg Tab) 40 mg PO QAM [facility] Stop: 04/10/23 08:59 Last Admin: 03/11/23 08:04 Dose: 40 mg Pyridoxine HCl (Pyridoxine Hcl 50 Mg Tab) 50 mg PO QAM [facility] Stop: 04/10/23 08:59 Last Admin: 03/11/23 08:04 Dose: 50 mg Vitamin D (Cholecalciferol 1,000 Units 25 Mcg Tab) 2,000 units PO QAM [facility] Stop: 04/10/23 08:59 Last Admin: 03/11/23 08:06 Dose: 2,000 units
[2023-03-11] MEDS ORDERED: LORazepam 2 MG/1 ML VIAL IV STA (19:01)
[2023-03-11] MEDS ORDERED: ONDANSETRON INJ 2 MG/ML 2 ML VIAL IV STA (19:01)
[2023-03-11] MEDS: MULTIVITAMIN TAB PO SCH (20:38)
[2023-03-11] MEDS: FEXOFENADINE HCL 180 MG TAB PO SCH (20:38)
[2023-03-12] MEDS: CHECK fentaNYL PATCH PLACEMENT SCH ×3 (00:12→15:51)
[2023-03-12] MEDS: oxyCODONE HCL SOLN 5 MG/5 ML UDC PO PRN ×5 (00:14→23:01)
[2023-03-12] MEDS: CEFEPIME 2,000 MG in SYRINGE 0 ML IV SCH ×3 (00:14→17:46)
[2023-03-12] MEDS: LORazepam 0.5 mg IV INJ IV PRN ×4 (01:32→21:02)
[2023-03-12] MEDS: ONDANSETRON INJ 2 MG/ML 2 ML VIAL IV PRN ×4 (01:34→23:01)
[2023-03-12] MEDS: KETAMINE HCL IV PRN ×9 (01:54→21:02)
[2023-03-12] MEDS: SODIUM CHLORIDE 0.9% IV PRN ×9 (01:54→21:02)
[2023-03-12 04:50] LABS: Basophils # (auto) 0.04 K/uL (0.00-0.20); Basophils % (auto) 0.6 %; Eosinophils # (auto) 0.16 K/uL (0.00-0.50); Eosinophils % (auto) 2.5 %; Hematocrit (blood only) 33.6 % (37.0-47.0); Hemoglobin 10.9 g/dl (12.0-16.0); Immature Granulocytes # (auto) 0.01 K/uL (0.01-0.20); Immature Granulocytes % (auto) 0.2 %; Lymphocytes # (auto) 1.52 K/uL (1.20-3.40); Lymphocytes % (auto) 23.8 %; Mean Corpuscular Hemoglobin 30.1 pg (25.0-34.0); Mean Corpuscular Hgb Conc 32.4 g/dL (32.0-36.0); Mean Corpuscular Volume 92.8 fL (80.0-100.0); Mean Platelet Volume 10.4 fL (9.4-12.4); Monocytes # (auto) 0.73 K/uL (0.11-0.59); Monocytes % (auto) 11.4 %; Neutrophils # (auto) 3.92 K/uL (1.40-6.50); Neutrophils % (auto) 61.5 %; Platelet Count 288 K/uL (130-400); RDW Coefficient of Variation 13.3 % (11.5-14.5); Red Blood Count 3.62 M/uL (4.20-5.40); White Blood Count 6.38 K/ul (4.8-10.8)
[2023-03-12 05:06] LABS: Albumin Globulin Ratio 1.9 (0.9-2); Albumin Level 3.4 gm/dl (3.4-5.0); BUN Creatinine Ratio 4.8 (10-20); Bilirubin,Total 0.3 mg/dl (0.2-1.0); Calcium 8.1 mg/dl (8.6-10.3); Creatinine Clr Calc Pharmacy 123.1 ml/min; Est GFR (African American) 139.3 ml/min; Est GFR (Non-African American) 120.2 ml/min; Globulin 1.8 gm/dl (2.5-4.0); Magnesium 1.9 mg/dl (1.7-2.4); Phosphorus 3.6 mg/dl (2.5-4.9); Potassium 3.5 mmol/L (3.5-5.1); Total Protein 5.2 gm/dl (6.0-8.3)
[2023-03-12] MEDS: HYDROCORTISONE 10 MG TAB PO SCH ×2 (05:49→11:44)
[2023-03-12] MEDS: LEVOTHYROXINE SODIUM 50 MCG TABLET PO SCH (05:49)
[2023-03-12] MEDS: POTASSIUM CHLORIDE / WTR 10 MEQ/100 ML PLCT IV SCH ×3 (06:28→09:21)
[2023-03-12] MEDS ORDERED: MAGNESIUM SULFATE / D5W 1 GM/100 ML BAG IV ONE (06:30)
[2023-03-12] MEDS: ICU Protocol for HYPERglycemia SCH ×3 (07:55→16:00)
[2023-03-12] MEDS: METHOCARBAMOL 750 MG TABLET PO SCH ×3 (08:22→21:01)
[2023-03-12] MEDS: FLUDROCORTISONE ACETATE 0.1 MG TAB PO SCH ×2 (08:22→21:01)
[2023-03-12] MEDS: DULoxetine HCL 60 MG CAP PO SCH (08:23)
[2023-03-12] MEDS: CHOLECALCIFEROL 1,000 UNITS 25 MCG TAB PO SCH (08:23)
[2023-03-12] MEDS: PANTOprazole 40 MG TAB PO SCH (08:23)
[2023-03-12] MEDS: PYRIDOXINE HCL 50 MG TAB PO SCH (08:23)
[2023-03-12] MEDS: fentaNYL 75 MCG/HR TDSY TD SCH (08:37)
--- NOTE | 2023-03-12 08:40 | Critical Care Progress Note ---
Date of Service March 12, 2023 Assessment & Plan (1) Seizure-like activity: (2) Epigastric abdominal pain: (3) Pain disorder: (4) Infection due to Port-A-Cath: Plan Impression: 33-year-old female with visceral hyperalgesia and acute on chronic abdominal pain and associated Superman's enteric artery syndrome. The patient had a stimulator implant placed for pain control. Unfortunately she appears to have had a intravascular infection with recent removal of a port which is growing methicillin sensitive Staph aureus as well as Pseudomonas. She had been on daptomycin and Cipro. ID consultation is pending. She presented to the emergency room due to lethargy and had her temporary stimulator removed due to concerns about infection. She is in the ICU as she is receiving ketamine for pain control. Recommendations: 1. Acute on chronic pain syndrome: Management per pain services. We will continue monitor in ICU while receiving ketamine per protocol. 2. Intravascular infection: ID consultation pending. White blood cell count normal. Procalcitonin undetectable. Blood cultures from 03/10 negative. Cultures from the chest port 03/05/2023 growing methicillin sensitive Staph aureus and pansensitive Pseudomonas. Currently on Cefepime. Would like to avoid fluoroquinolones as they may be the only oral agents in the antipseudomonal class that we can use in the future. Cefepime which should cover both staph and Pseudomonas. The patient lists allergies to amoxicillin and cefazolin cephalosporins and penicillins although notes indicate that she is taking first and second generation cephalosporins as well as Zosyn in the past without adverse effect. Long-term antibiotic plan per ID. 3. History of adrenal insufficiency. No indication for adrenal crisis. Continue baseline 4. Mild anemia. No evidence of acute blood loss currently. No indication for transfusion. Continue to follow clinically. 5. Hypokalemia: Initiate ICU electrolyte replacement protocol. 6. Patient's other outpatient medications will be continued. DVT prophylaxis not necessary as the patient is at her baseline level of activity. We will continue to monitor in the ICU until the patient no longer requires ketamine for [facility] protocol. Family updated at bedside. Admission and Anticipated Discharge Date Admission Date: March 10, 2023 Subjective Patient seen and evaluated today. She reports that she had a rough night, but is feeling better today. Her pain is under better control at this time. Review of Systems Review of Systems: Unchanged from admission. Physical Exam Physical Exam: VITAL SIGNS - Vital signs and nursing notes were reviewed. GENERAL - 33-year-old female appearing her stated age who is in no acute distre ss. Communicates well with provider and answers questions appropriately. LUNGS - Chest wall symmetric without accessory muscle use, intercostals retractions, or central cyanosis. Normal vesicular breath sounds CTA B/L. No wheezes, rales, or rhonchi appreciated. CARDIAC - RRR with S1/S2. No murmur, rubs, or gallops appreciated. ABDOMEN - Abdominal contour flat without pulsations or visible masses. Ostomy in place. Subjective TTP throughout. PSYCH - A&Ox3 and cooperates fully with examiner. Pt is very pleasant and interacts well with examiner. Results & Data Results & Data Vital Signs (Past 12 Hours) Vital Signs Temp Pulse Pulse Resp BP BP Pulse Ox 03/12/23 08:35 82 6 L 03/12/23 08:35 112/77 03/12/23 08:30 83 7 L 97 03/12/23 08:30 121/84 03/12/23 08:25 73 8 L 97 03/12/23 08:25 111/75 03/12/23 08:20 82 14 96 03/12/23 08:20 113/79 03/12/23 08:17 93 H 11 L 98 03/12/23 08:17 116/83 03/12/23 06:00 36.8 C 107 H 12 113/78 96 03/12/23 05:00 36.6 C 75 16 110/68 95 03/12/23 04:00 36.7 C 80 14 104/77 95 03/12/23 03:00 36.6 C 76 13 110/73 95 03/12/23 02:03 120/86 03/12/23 02:03 36.8 C 110 H 18 120/86 93 03/12/23 01:00 98 H 13 120/78 96 03/12/23 01:40 101 H 10 L 96 03/12/23 01:30 129 H 23 95 03/12/23 01:20 90 7 L 96 03/12/23 01:10 87 10 L 96 03/12/23 01:00 88 8 L 120/78 03/12/23 00:50 90 7 L 96 03/12/23 00:40 96 H 6 L 96 03/12/23 00:30 87 6 L 97 03/12/23 00:20 88 7 L 97 03/12/23 00:10 86 11 L 96 03/12/23 00:00 36.6 C 96 H 11 L 123/81 03/11/23 23:50 99 H 9 L 98 03/11/23 23:40 80 9 L 97 03/11/23 23:30 88 8 L 96 03/11/23 23:20 85 10 L 96 03/11/23 23:10 90 16 98 03/11/23 23:00 36.8 C 87 10 L 117/80 03/11/23 22:50 94 H 14 96 03/11/23 22:40 87 13 97 03/11/23 22:30 86 10 L 97 03/11/23 22:20 88 11 L 97 03/11/23 22:10 83 9 L 96 03/11/23 22:00 37 C 85 10 L 122/94 03/11/23 21:50 101 H 11 L 97 03/11/23 21:40 83 9 L 96 03/11/23 21:30 99 H 14 96 03/11/23 21:20 109 H 14 98 03/11/23 21:10 75 9 L 94 03/11/23 21:00 88 12 96 03/11/23 21:00 118/79 03/11/23 20:50 90 11 L 96 03/11/23 23:57 88 O2 Del Method 03/12/23 08:35 03/12/23 08:35 03/12/23 08:30 03/12/23 08:30 03/12/23 08:25 03/12/23 08:25 03/12/23 08:20 03/12/23 08:20 03/12/23 08:17 03/12/23 08:17 03/12/23 06:00 03/12/23 05:00 Room Air 03/12/23 04:00 Room Air 03/12/23 03:00 Room Air 03/12/23 02:03 03/12/23 02:03 Room Air 03/12/23 01:00 Room Air 03/12/23 01:40 03/12/23 01:30 03/12/23 01:20 03/12/23 01:10 03/12/23 01:00 03/12/23 00:50 03/12/23 00:40 03/12/23 00:30 03/12/23 00:20 03/12/23 00:10 03/12/23 00:00 03/11/23 23:50 03/11/23 23:40 03/11/23 23:30 03/11/23 23:20 03/11/23 23:10 03/11/23 23:00 03/11/23 22:50 03/11/23 22:40 03/11/23 22:30 03/11/23 22:20 03/11/23 22:10 03/11/23 22:00 03/11/23 21:50 03/11/23 21:40 03/11/23 21:30 03/11/23 21:20 03/11/23 21:10 03/11/23 21:00 03/11/23 21:00 03/11/23 20:50 03/11/23 23:57 Coding Level of Care Code 44919 SUB INP/OBS CARE 2/35MIN Diagnoses Seizure-like activity R56.9 Epigastric abdominal pain R10.13 Pain disorder R52 Infection due to Port-A-Cath T80.219A
--- NOTE | 2023-03-12 09:03 | Hospitalist Progress Note ---
Date of Service March 12, 2023 Assessment & Plan (1) Central line infection: Plan: Given that it was a central line infection, given that she did have rigors, and given that she does have a line in on the opposite side, will follow cultures for several days (Into 03/13) before being able to truly call this simply a line infection not with subsequent bacteremia, but this is appearing to be the case Spinal cord stimulator trial lead was removednothing appearing grossly infectious about it, cultures on the lead are thus far negative as well. (It is listed in the EMR under "catheter tip, PICC" because there was nowhere in the orders to culture a spinal cord stimulator lead) the former port site itself has lookedclean dry intact with no evidence of cellulitis, abscess, exudate, etc. (2) Visceral hyperalgesia: Plan: in discussion with the patient, it seems that the spinal cord stimulator trial was showing improvement, the question would be whether it was enough improvement to be a superior option compared to intrathecal pump. Pain management weighing options, agree that an ongoing weighing of risks and benefits of both approaches is the right way to follow through. Unfortunately until this infection is cleared no further progress can be made on this, but will try to facilitate further progress/therapeutic trial/etc. as quickly as possible after the infection has cleared in the meantime, we will follow her pain now that the spinal cord stimulator trial lead is out, as that may also provide some degree of clue as far as the pain relief it was providing thus far; will continue with our current mode of treatment with as needed ketamine which has been helpful in controlling the pain/providing respite from the pain, while minimizing narcotics that could impact GI motility in discussion with pain management today, they will try to get her scheduled for the week of ssentially as soon as she is completing her current course of antibiotics. (3) DVT prophylaxis: Plan: ambulation (4) Discharge planning issues: Plan: ICU given the need for ketamine. Anticipate her going home Once cefepime set up for home and pain is under reasonable control. Admission and Anticipated Discharge Date Admission Date: March 10, 2023 Subjective Pain doing a bit better. Discussed with infectious diseaseagree it seems unlikely that there is a bloodstream infection. Patient does note that she has had some trouble with her right sided port, and would be interested in seeing vascular surgery as an outpatient for potential other options or at least a backup plan if her port were to go bad. Review of Systems Review of Systems: All systems reviewed & are unremarkable except as noted in HPI & below Physical Exam Physical Exam: In general she is awake alert oriented pleasant fatigued the first time I see her she is asleep the next time she is resting but appears very fatigued. Fortunately no distress. HEENT normocephalic atraumatic mucous membranes moist. Breathing unlabored no accessory muscle use good effort. Skin shows no rashes no pallor or icterus. Neuro without focal deficits. Results & Data Results & Data Vital Signs (Past 12 Hours) Vital Signs Temp Pulse Pulse Resp BP BP Pulse Ox 03/12/23 08:35 82 6 L 03/12/23 08:35 112/77 03/12/23 08:30 83 7 L 97 03/12/23 08:30 121/84 03/12/23 08:25 73 8 L 97 03/12/23 08:25 111/75 03/12/23 08:20 82 14 96 03/12/23 08:20 113/79 03/12/23 08:17 93 H 11 L 98 03/12/23 08:17 116/83 03/12/23 06:00 98.2 F 107 H 12 113/78 96 03/12/23 05:00 97.9 F 75 16 110/68 95 03/12/23 04:00 98.1 F 80 14 104/77 95 03/12/23 03:00 97.9 F 76 13 110/73 95 03/12/23 02:03 120/86 03/12/23 02:03 98.2 F 110 H 18 120/86 93 03/12/23 01:00 98 H 13 120/78 96 03/12/23 01:40 101 H 10 L 96 03/12/23 01:30 129 H 23 95 03/12/23 01:20 90 7 L 96 03/12/23 01:10 87 10 L 96 03/12/23 01:00 88 8 L 120/78 03/12/23 00:50 90 7 L 96 03/12/23 00:40 96 H 6 L 96 03/12/23 00:30 87 6 L 97 03/12/23 00:20 88 7 L 97 03/12/23 00:10 86 11 L 96 03/12/23 00:00 97.9 F 96 H 11 L 123/81 03/11/23 23:50 99 H 9 L 98 03/11/23 23:40 80 9 L 97 03/11/23 23:30 88 8 L 96 03/11/23 23:20 85 10 L 96 03/11/23 23:10 90 16 98 03/11/23 23:00 98.2 F 87 10 L 117/80 03/11/23 22:50 94 H 14 96 03/11/23 22:40 87 13 97 03/11/23 22:30 86 10 L 97 03/11/23 22:20 88 11 L 97 03/11/23 22:10 83 9 L 96 03/11/23 22:00 98.6 F 85 10 L 122/94 03/11/23 21:50 101 H 11 L 97 03/11/23 21:40 83 9 L 96 03/11/23 21:30 99 H 14 96 03/11/23 21:20 109 H 14 98 03/11/23 21:10 75 9 L 94 03/11/23 23:57 88 O2 Del Method 03/12/23 08:35 03/12/23 08:35 03/12/23 08:30 03/12/23 08:30 03/12/23 08:25 03/12/23 08:25 03/12/23 08:20 03/12/23 08:20 03/12/23 08:17 03/12/23 08:17 03/12/23 06:00 03/12/23 05:00 Room Air 03/12/23 04:00 Room Air 03/12/23 03:00 Room Air 03/12/23 02:03 03/12/23 02:03 Room Air 03/12/23 01:00 Room Air 03/12/23 01:40 03/12/23 01:30 03/12/23 01:20 03/12/23 01:10 03/12/23 01:00 03/12/23 00:50 03/12/23 00:40 03/12/23 00:30 03/12/23 00:20 03/12/23 00:10 03/12/23 00:00 03/11/23 23:50 03/11/23 23:40 03/11/23 23:30 03/11/23 23:20 03/11/23 23:10 03/11/23 23:00 03/11/23 22:50 03/11/23 22:40 03/11/23 22:30 03/11/23 22:20 03/11/23 22:10 03/11/23 22:00 03/11/23 21:50 03/11/23 21:40 03/11/23 21:30 03/11/23 21:20 03/11/23 21:10 03/11/23 23:57 PG Care Time/CCT Total # of Minutes Spent Total Time Spent with Patient: Total time spent is greater than 50% in coordination of care (as documented) at patient's floor/unit and/or counseling patient: Coding Level of Care Code 16644 SUB INP/OBS CARE 3/50MIN Diagnoses Central line infection T80.219A Visceral hyperalgesia R19.8 DVT prophylaxis Z29.9 Discharge planning issues Z02.9
[2023-03-12] MEDS: GABAPENTIN 250 MG/5 ML 470 ML BTL PO SCH ×3 (09:22→21:01)
[2023-03-12] MEDS: BETHANECHOL CHL 25 MG TAB PO PRN ×2 (09:22→21:04)
[2023-03-12] MEDS: NSS + 20MEQ KCL 20 MEQ/1,000 ML BAG IV SCH (10:31)
[2023-03-12] MEDS: DICYCLOMINE HCL 10 MG CAP PO PRN ×2 (10:48→21:00)
[2023-03-12] MEDS: FAMOTIDINE 20 MG TAB PO SCH ×2 (10:48→21:01)
--- NOTE | 2023-03-12 12:08 | Infectious Disease Progress Nt ---
Date of Service March 12, 2023 Assessment & Plan (1) Central line infection: (2) Pseudomonas aeruginosa infection: (3) Infection due to Port-A-Cath: Plan #Left Port site infection s/p removal #Retained R port for IV and TPN #PCN and cephalexin (tolerates Keflex) 33-year-old female with a past medical history including antibiotic allergies (PCN, cefazolin) chronic abdominal pain, adrenal insufficiency, hypothyroidism, visceral hyperalgesia, chronic continuous use of opioids, SMAS, chronic severe protein calorie malnutrition, recent admitted from 02/24-03/01/2023, During her recent admission, her port was noted to be inflamed. She was given cephalexin at that time. She presented to ED on 03/03 with port site infection and discharged wit close surgery follow up On 03/10 she presented to [facility] via EMS for evaluation of an infected port (s/p removal) She was contacted on day of admit and told that her cultures were positive and she needed admission for IV antibiotics. There was concern for seizure activity as well. Initial labs showed WBC 4.53, 0.63 03/05 Cath tip cultures grew Staph aureus x3 colonies these are now reported as MSSA. Chest wall port site growing both PSA, no resistance, and MSSA, 03/10 Blood cultures are in lab and no growth to date. 03/10 Blood cultures are No Growth RECOMMEND -I agree with Cefepime as this would cover BOTH MSSA and Pseudomonas -Would continue with Cefepime 2G IV TID x14 days from 03/10-03/24/23 -Would have weekly labs with CBC with diff and CMP to her primary team -Given blood cultures have not grown any pathogen, R chest port can be retained as this is likely a port site infection and not bacteremic Cony Mujica MD Infectious Diseases Admission and Anticipated Discharge Date Admission Date: March 10, 2023 Subjective This patient recommendation is based on a telemedicine consult request which was completed asynchronously through chart review and information provided by the primary physician. The patient was not seen or examined today. The evaluation is consultative in nature and all patient care and treatment decisions can either be accepted or rejected by the patient's primary hospital-based treating physician using their own independent medical judgment for their patient. Time Spent Reviewing Chart: 21 - 30 minutes Results & Data Vital Signs (Past 12 Hours) Vital Signs Temp Pulse Pulse Resp BP BP Pulse Ox 10/26/23 10:40 99/69 L 03/12/23 11:00 78 12 95 03/12/23 11:00 115/84 03/12/23 10:55 69 18 96 03/12/23 10:50 72 13 95 03/12/23 10:45 71 13 97 03/12/23 10:40 75 14 96 03/12/23 10:35 71 14 96 03/12/23 10:35 100/65 03/12/23 10:30 69 13 96 03/12/23 10:30 111/73 03/12/23 08:00 77 03/12/23 10:12 78 13 95 03/12/23 10:12 102/72 03/12/23 10:00 96 H 10 L 93 03/12/23 09:30 76 13 96 03/12/23 09:00 79 11 L 95 03/12/23 09:00 112/77 03/12/23 10:16 77 03/12/23 08:35 82 6 L 03/12/23 08:35 112/77 03/12/23 08:30 83 7 L 97 03/12/23 08:30 121/84 03/12/23 08:25 73 8 L 97 03/12/23 08:25 111/75 03/12/23 08:20 82 14 96 03/12/23 08:20 113/79 03/12/23 08:17 93 H 11 L 98 03/12/23 08:17 116/83 03/12/23 06:00 36.8 C 107 H 12 113/78 96 03/12/23 05:00 36.6 C 75 16 110/68 95 03/12/23 04:00 36.7 C 80 14 104/77 95 03/12/23 03:00 36.6 C 76 13 110/73 95 03/12/23 02:03 120/86 03/12/23 02:03 36.8 C 110 H 18 120/86 93 03/12/23 01:00 98 H 13 120/78 96 03/12/23 01:40 101 H 10 L 96 03/12/23 01:30 129 H 23 95 03/12/23 01:20 90 7 L 96 03/12/23 01:10 87 10 L 96 03/12/23 01:00 88 8 L 120/78 03/12/23 00:50 90 7 L 96 03/12/23 00:40 96 H 6 L 96 03/12/23 00:30 87 6 L 97 03/12/23 00:20 88 7 L 97 03/12/23 00:10 86 11 L 96 O2 Del Method 03/12/23 10:40 03/12/23 11:00 03/12/23 11:00 03/12/23 10:55 03/12/23 10:50 03/12/23 10:45 03/12/23 10:40 03/12/23 10:35 03/12/23 10:35 03/12/23 10:30 03/12/23 10:30 03/12/23 08:00 03/12/23 10:12 03/12/23 10:12 03/12/23 10:00 03/12/23 09:30 03/12/23 09:00 03/12/23 09:00 03/12/23 10:16 03/12/23 08:35 03/12/23 08:35 03/12/23 08:30 03/12/23 08:30 03/12/23 08:25 03/12/23 08:25 03/12/23 08:20 03/12/23 08:20 03/12/23 08:17 03/12/23 08:17 03/12/23 06:00 03/12/23 05:00 Room Air 03/12/23 04:00 Room Air 03/12/23 03:00 Room Air 03/12/23 02:03 03/12/23 02:03 Room Air 03/12/23 01:00 Room Air 03/12/23 01:40 03/12/23 01:30 03/12/23 01:20 03/12/23 01:10 03/12/23 01:00 03/12/23 00:50 03/12/23 00:40 03/12/23 00:30 03/12/23 00:20 03/12/23 00:10 Laboratory Results Laboratory Results - last 48 hr 03/10/23 03/10/23 03/10/23 14:51 14:51 14:51 WBC 4.53 L RBC 3.95 L Hgb 12.1 Hct 36.3 L MCV 91.9 MCH 30.6 MCHC 33.3 RDW Std Deviation 44.0 RDW Coeff of Tim 13.2 Plt Count 322 MPV 10.6 Immature Gran % (Auto) 0.4 Neut % (Auto) 71.6 Lymph % (Auto) 17.4 [place] % (Auto) 8.6 Eos % (Auto) 1.3 Baso % (Auto) 0.7 Neut # (Auto) 3.24 Lymph # (Auto) 0.79 L [place] # (Auto) 0.39 Eos # (Auto) 0.06 Baso # (Auto) 0.03 Immature Gran # (Auto) 0.02 Sodium 141 Potassium 3.4 L Chloride 105 Carbon Dioxide 31 Anion Gap 5 BUN 5 L Creatinine 0.63 Est Cr Clr Drug Dosing 134.0 Est GFR ( Amer) 138.5 Est GFR (Non-Af Amer) 119.5 BUN/Creatinine Ratio 7.9 L Glucose 102 H POC Glucose Lactate Calcium 8.8 Phosphorus Magnesium 2.1 Total Bilirubin 0.3 Direct Bilirubin 0.0 AST 16 ALT 18 Alkaline Phosphatase 77 Total Protein 6.1 Albumin 3.8 Globulin Albumin/Globulin Ratio Procalcitonin < 0.05 Urine Color Urine Appearance Urine pH Ur Specific [place] Urine Protein Urine Glucose (UA) Urine Ketones Urine Blood Urine Nitrite Urine Bilirubin Urine Urobilinogen Ur Leukocyte Esterase Nasal Screen MRSA (PCR) SARS-CoV-2 (PCR) Influenza Type A (PCR) Influenza Type B (PCR) RSV (RT-PCR) 03/10/23 03/10/23 03/10/23 15:02 15:27 19:51 WBC RBC Hgb Hct MCV MCH MCHC RDW Std Deviation RDW Coeff of Tim Plt Count MPV Immature Gran % (Auto) Neut % (Auto) Lymph % (Auto) [place] % (Auto) Eos % (Auto) Baso % (Auto) Neut # (Auto) Lymph # (Auto) [place] # (Auto) Eos # (Auto) Baso # (Auto) Immature Gran # (Auto) Sodium Potassium Chloride Carbon Dioxide Anion Gap BUN Creatinine Est Cr Clr Drug Dosing Est GFR ( Amer) Est GFR (Non-Af Amer) BUN/Creatinine Ratio Glucose POC Glucose Lactate 1.3 Calcium Phosphorus Magnesium Total Bilirubin Direct Bilirubin AST ALT Alkaline Phosphatase Total Protein Albumin Globulin Albumin/Globulin Ratio Procalcitonin Urine Color Yellow Urine Appearance Clear Urine pH 6.0 Ur Specific [place] 1.009 Urine Protein Negative Urine Glucose (UA) Negative Urine Ketones Negative Urine Blood Negative Urine Nitrite Negative Urine Bilirubin Negative Urine Urobilinogen Negative Ur Leukocyte Esterase Negative Nasal Screen MRSA (PCR) SARS-CoV-2 (PCR) NEGATIVE Influenza Type A (PCR) Negative Influenza Type B (PCR) Negative RSV (RT-PCR) Negative 03/10/23 03/10/23 03/11/23 21:00 21:45 03:23 WBC 6.01 RBC 3.70 L Hgb 11.3 L Hct 33.7 L MCV 91.1 MCH 30.5 MCHC 33.5 RDW Std Deviation 44.6 RDW Coeff of Tim 13.5 Plt Count 294 MPV 10.5 Immature Gran % (Auto) 0.2 Neut % (Auto) 55.3 Lymph % (Auto) 30.0 [place] % (Auto) 11.6 Eos % (Auto) 2.2 Baso % (Auto) 0.7 Neut # (Auto) 3.33 Lymph # (Auto) 1.80 [place] # (Auto) 0.70 H Eos # (Auto) 0.13 Baso # (Auto) 0.04 Immature Gran # (Auto) 0.01 Sodium Potassium Chloride Carbon Dioxide Anion Gap BUN Creatinine Est Cr Clr Drug Dosing Est GFR ( Amer) Est GFR (Non-Af Amer) BUN/Creatinine Ratio Glucose POC Glucose 79 Lactate Calcium Phosphorus Magnesium Total Bilirubin Direct Bilirubin AST ALT Alkaline Phosphatase Total Protein Albumin Globulin Albumin/Globulin Ratio Procalcitonin Urine Color Urine Appearance Urine pH Ur Specific [place] Urine Protein Urine Glucose (UA) Urine Ketones Urine Blood Urine Nitrite Urine Bilirubin Urine Urobilinogen Ur Leukocyte Esterase Nasal Screen MRSA (PCR) Negative SARS-CoV-2 (PCR) Influenza Type A (PCR) Influenza Type B (PCR) RSV (RT-PCR) 03/11/23 03/11/23 03/11/23 03:23 08:44 16:04 WBC RBC Hgb Hct MCV MCH MCHC RDW Std Deviation RDW Coeff of Tim Plt Count MPV Immature Gran % (Auto) Neut % (Auto) Lymph % (Auto) [place] % (Auto) Eos % (Auto) Baso % (Auto) Neut # (Auto) Lymph # (Auto) [place] # (Auto) Eos # (Auto) Baso # (Auto) Immature Gran # (Auto) Sodium 144 Potassium 3.4 L Chloride 108 H Carbon Dioxide 31 Anion Gap 5 BUN 5 L Creatinine 0.68 Est Cr Clr Drug Dosing 112.2 Est GFR ( Amer) 135.1 Est GFR (Non-Af Amer) 116.6 BUN/Creatinine Ratio 7.4 L Glucose 86 POC Glucose 84 98 Lactate Calcium 8.3 L Phosphorus 4.5 Magnesium 1.9 Total Bilirubin 0.3 Direct Bilirubin AST 14 ALT 15 Alkaline Phosphatase 68 Total Protein 5.4 L Albumin 3.4 Globulin 2.0 L Albumin/Globulin Ratio 1.7 Procalcitonin Urine Color Urine Appearance Urine pH Ur Specific [place] Urine Protein Urine Glucose (UA) Urine Ketones Urine Blood Urine Nitrite Urine Bilirubin Urine Urobilinogen Ur Leukocyte Esterase Nasal Screen MRSA (PCR) SARS-CoV-2 (PCR) Influenza Type A (PCR) Influenza Type B (PCR) RSV (RT-PCR) 03/11/23 03/12/23 03/12/23 20:59 02:27 04:14 WBC 6.38 RBC 3.62 L Hgb 10.9 L Hct 33.6 L MCV 92.8 MCH 30.1 MCHC 32.4 RDW Std Deviation 45.0 RDW Coeff of Tim 13.3 Plt Count 288 MPV 10.4 Immature Gran % (Auto) 0.2 Neut % (Auto) 61.5 Lymph % (Auto) 23.8 [place] % (Auto) 11.4 Eos % (Auto) 2.5 Baso % (Auto) 0.6 Neut # (Auto) 3.92 Lymph # (Auto) 1.52 [place] # (Auto) 0.73 H Eos # (Auto) 0.16 Baso # (Auto) 0.04 Immature Gran # (Auto) 0.01 Sodium Potassium Chloride Carbon Dioxide Anion Gap BUN Creatinine Est Cr Clr Drug Dosing Est GFR ( Amer) Est GFR (Non-Af Amer) BUN/Creatinine Ratio Glucose POC Glucose 81 88 Lactate Calcium Phosphorus Magnesium Total Bilirubin Direct Bilirubin AST ALT Alkaline Phosphatase Total Protein Albumin Globulin Albumin/Globulin Ratio Procalcitonin Urine Color Urine Appearance Urine pH Ur Specific [place] Urine Protein Urine Glucose (UA) Urine Ketones Urine Blood Urine Nitrite Urine Bilirubin Urine Urobilinogen Ur Leukocyte Esterase Nasal Screen MRSA (PCR) SARS-CoV-2 (PCR) Influenza Type A (PCR) Influenza Type B (PCR) RSV (RT-PCR) 03/12/23 03/12/23 03/12/23 04:14 07:52 11:06 WBC RBC Hgb Hct MCV MCH MCHC RDW Std Deviation RDW Coeff of Tim Plt Count MPV Immature Gran % (Auto) Neut % (Auto) Lymph % (Auto) [place] % (Auto) Eos % (Auto) Baso % (Auto) Neut # (Auto) Lymph # (Auto) [place] # (Auto) Eos # (Auto) Baso # (Auto) Immature Gran # (Auto) Sodium 143 Potassium 3.5 Chloride 109 H Carbon Dioxide 29 Anion Gap 5 BUN 3 L Creatinine 0.62 Est Cr Clr Drug Dosing 123.1 Est GFR ( Amer) 139.3 Est GFR (Non-Af Amer) 120.2 BUN/Creatinine Ratio 4.8 L Glucose 85 POC Glucose 98 118 H Lactate Calcium 8.1 L Phosphorus 3.6 Magnesium 1.9 Total Bilirubin 0.3 Direct Bilirubin AST 15 ALT 15 Alkaline Phosphatase 66 Total Protein 5.2 L Albumin 3.4 Globulin 1.8 L Albumin/Globulin Ratio 1.9 Procalcitonin Urine Color Urine Appearance Urine pH Ur Specific [place] Urine Protein Urine Glucose (UA) Urine Ketones Urine Blood Urine Nitrite Urine Bilirubin Urine Urobilinogen Ur Leukocyte Esterase Nasal Screen MRSA (PCR) SARS-CoV-2 (PCR) Influenza Type A (PCR) Influenza Type B (PCR) RSV (RT-PCR) Medications Administered Current Inpatient Medications Acetaminophen (Acetaminophen 500 Mg Tab) 1,000 mg PO Q6H PRN PRN Reason: Pain or Fever Stop: 04/09/23 20:44 Bethanechol Chloride (Bethanechol Chl 25 Mg Tab) 12.5 mg PO BID PRN PRN Reason: urinary retention Stop: 04/09/23 20:44 Last Admin: 03/12/23 09:22 Dose: 12.5 mg Dicyclomine HCl (Dicyclomine Hcl 10 Mg Cap) 20 mg PO Q6H PRN PRN Reason: Abdominal Pain Stop: 04/09/23 20:44 Last Admin: 03/12/23 10:48 Dose: 20 mg Duloxetine HCl (Duloxetine Hcl 60 Mg Cap) 60 mg PO QAM [facility] Stop: 04/10/23 08:59 Last Admin: 03/12/23 08:23 Dose: 60 mg Famotidine (Famotidine 20 Mg Tab) 20 mg PO BID [facility] Stop: 04/09/23 20:59 Last Admin: 03/12/23 10:48 Dose: 20 mg Fentanyl (Fentanyl 75 Mcg/Hr Tdsy) 75 mcg TD Q72H [facility] Stop: 03/26/23 08:59 Last Admin: 03/12/23 08:37 Dose: 75 mcg Fexofenadine HCl (Fexofenadine Hcl 180 Mg Tab) 180 mg PO HS [facility] Stop: 04/09/23 20:59 Last Admin: 03/11/23 20:38 Dose: 180 mg Fludrocortisone Acetate (Fludrocortisone Acetate 0.1 Mg Tab) 0.1 mg PO BID [facility] Stop: 04/09/23 20:59 Last Admin: 03/12/23 08:22 Dose: 0.1 mg Gabapentin (Gabapentin 250 Mg/5 Ml 470 Ml Btl) 900 mg PO TID [facility] Stop: 04/09/23 20:59 Last Admin: 03/12/23 09:22 Dose: 900 mg Heparin Sodium (Porcine) (Heparin 100 Unit/Ml 5ml Flush) 5 ml FLUSH PRN PRN PRN Reason: Flush Stop: 04/10/23 10:18 Hydrocortisone (Hydrocortisone 10 Mg Tab) 10 mg PO TODAY@1200 [facility] Stop: 04/10/23 11:59 Last Admin: 03/12/23 11:44 Dose: 10 mg Hydrocortisone (Hydrocortisone 10 Mg Tab) 15 mg PO TODAY@0700 [facility] Stop: 04/10/23 06:59 Last Admin: 03/12/23 05:49 Dose: 15 mg Potassium Chloride/Sodium Chloride (Normal Saline W/20 Meq Kcl) 20 meq in 1,000 mls @ 80 mls/hr IV .[id number] [facility] Stop: 04/09/23 20:44 Last Admin: 03/12/23 10:31 Dose: 80 mls/hr Ketamine HCl 5 mg/ Sodium (Chloride) 50.1 mls @ 300.6 mls/hr IV Q1H PRN PRN Reason: Severe Pain (Scale 7, 8, 9,10) Stop: 04/09/23 21:44 Last Infusion: 03/12/23 10:50 Dose: Infused Cefepime HCl 2,000 mg/ Syringe 20 mls @ 5 mls/min IV Q8H [facility]; Protocol Stop: 03/25/23 09:14 Last Admin: 03/12/23 09:22 Dose: 5 mls/min Levothyroxine Sodium (Levothyroxine Sodium 50 Mcg Tablet) 50 mcg PO DAILYBB [facility] Stop: 04/10/23 06:29 Last Admin: 03/12/23 05:49 Dose: 50 mcg Lorazepam (Lorazepam 0.5 Mg Iv Inj) 0.5 mg IV QID PRN PRN Reason: Nausea Stop: 04/09/23 21:11 Last Admin: 03/12/23 08:37 Dose: 0.5 mg Methocarbamol (Methocarbamol 750 Mg Tablet) 750 mg PO TID [facility] Stop: 04/09/23 21:29 Last Admin: 03/12/23 08:22 Dose: 750 mg Miscellaneous (Check Fentanyl Patch Placement) 1 each N/A QS [facility] Stop: 04/10/23 00:00 Last Admin: 03/12/23 07:55 Dose: 1 each Miscellaneous (Fentanyl Patch Remove & Waste) 1 each N/A Q3D [facility] Stop: 04/11/23 08:58 Last Admin: 03/12/23 08:22 Dose: 1 each Miscellaneous (Icu Protocol For Hyperglycemia) 1 each N/A ACHS [facility] Stop: 03/12/23 20:59 Last Admin: 03/12/23 11:10 Dose: Not Given Multivitamins (Multivitamin Tab) 2 tab PO HS [facility] Stop: 04/09/23 21:29 Last Admin: 03/11/23 20:38 Dose: 2 tab Ondansetron HCl (Ondansetron Inj 2 Mg/Ml 2 Ml Vial) 4 mg IV Q6H PRN PRN Reason: NAUSEA/VOMITING Stop: 04/09/23 17:51 Last Admin: 03/12/23 11:47 Dose: 4 mg Oxycodone HCl (Oxycodone Hcl Soln 5 Mg/5 Ml Udc) 5 mg PO Q4H PRN PRN Reason: Moderate Pain (Scale 4, 5, 6) Stop: 03/24/23 20:44 Last Admin: 03/12/23 11:47 Dose: 5 mg Pantoprazole Sodium (Pantoprazole 40 Mg Tab) 40 mg PO QAM [facility] Stop: 04/10/23 08:59 Last Admin: 03/12/23 08:23 Dose: 40 mg Pyridoxine HCl (Pyridoxine Hcl 50 Mg Tab) 50 mg PO QAM [facility] Stop: 04/10/23 08:59 Last Admin: 03/12/23 08:23 Dose: 50 mg Vitamin D (Cholecalciferol 1,000 Units 25 Mcg Tab) 2,000 units PO [facility] Stop: 04/10/23 08:59 Last Admin: 03/12/23 08:23 Dose: 2,000 units
--- NOTE | 2023-03-12 14:16 | Electrocardiogram Report ---
Test Reason : Blood Pressure : / mmHG Vent. Rate : 069 BPM Atrial Rate : 069 BPM P-R Int : 138 ms QRS Dur : 084 ms QT Int : 410 ms P-R-T Axes : 045 046 026 degrees QTc Int : 439 ms Normal sinus rhythm Normal ECG When compared with ECG of 03-MAR-2023 18:08, Nonspecific T wave abnormality, improved in Anterior leads Confirmed by John Nathan ([id number]) on 03/12/2023 2:16:33 PM Referred By: Mariah Addison Confirmed By:John Nathan
[2023-03-12] MEDS: MULTIVITAMIN TAB PO SCH (21:01)
[2023-03-12] MEDS: FEXOFENADINE HCL 180 MG TAB PO SCH (21:01)
--- NOTE | 2023-03-12 22:29 | Electrocardiogram Report ---
Test Reason : Blood Pressure : / mmHG Vent. Rate : 085 BPM Atrial Rate : 085 BPM P-R Int : 152 ms QRS Dur : 082 ms QT Int : 374 ms P-R-T Axes : 049 029 025 degrees QTc Int : 445 ms Normal sinus rhythm Nonspecific T wave abnormality When compared with ECG of 10-MAR-2023 14:48, No significant change was found Confirmed by John Nathan ([id number]) on 03/12/2023 10:29:06 PM Referred By: Mariah Addison Confirmed By:John Nathan
[2023-03-13] MEDS ORDERED: ONDANSETRON INJ 2 MG/ML 2 ML VIAL IV STA (00:44)
[2023-03-13] MEDS: SODIUM CHLORIDE 0.9% IV PRN ×8 (00:50→20:51)
[2023-03-13] MEDS: KETAMINE HCL IV PRN ×8 (00:50→20:51)
[2023-03-13] MEDS: ONDANSETRON INJ 2 MG/ML 2 ML VIAL IV PRN ×2 (00:50→11:48)
[2023-03-13] MEDS: CHECK fentaNYL PATCH PLACEMENT SCH ×3 (01:00→16:06)
[2023-03-13] MEDS: NSS + 20MEQ KCL 20 MEQ/1,000 ML BAG IV SCH ×2 (01:06→14:12)
[2023-03-13] MEDS: CEFEPIME 2,000 MG in SYRINGE 0 ML IV SCH ×3 (01:08→17:24)
[2023-03-13] MEDS: LORazepam 0.5 mg IV INJ IV PRN ×3 (03:08→18:09)
[2023-03-13 05:10] LABS: Basophils # (auto) 0.04 K/uL (0.00-0.20); Basophils % (auto) 0.6 %; Eosinophils % (auto) 3.2 %; Hematocrit (blood only) 33.5 % (37.0-47.0); Hemoglobin 11.1 g/dl (12.0-16.0); Immature Granulocytes # (auto) 0.01 K/uL (0.01-0.20); Immature Granulocytes % (auto) 0.2 %; Lymphocytes % (auto) 23.8 %; Mean Corpuscular Hemoglobin 30.4 pg (25.0-34.0); Mean Corpuscular Hgb Conc 33.1 g/dL (32.0-36.0); Mean Corpuscular Volume 91.8 fL (80.0-100.0); Monocytes # (auto) 0.75 K/uL (0.11-0.59); Monocytes % (auto) 11.9 %; Neutrophils % (auto) 60.3 %; Platelet Count 296 K/uL (130-400); RDW Coefficient of Variation 13.4 % (11.5-14.5); RDW Standard Deviation 45.1 fL (36.4-46.3); Red Blood Count 3.65 M/uL (4.20-5.40)
[2023-03-13 05:30] LABS: Albumin Globulin Ratio 1.7 (0.9-2); Albumin Level 3.5 gm/dl (3.4-5.0); BUN Creatinine Ratio 4.9 (10-20); Bilirubin,Total 0.3 mg/dl (0.2-1.0); Calcium 8.3 mg/dl (8.6-10.3); Creatinine Clr Calc Pharmacy 125.1 ml/min; Est GFR (Non-African American) 120.8 ml/min; Globulin 2.1 gm/dl (2.5-4.0); Magnesium 1.9 mg/dl (1.7-2.4); Phosphorus 4.2 mg/dl (2.5-4.9); Potassium 3.8 mmol/L (3.5-5.1); Total Protein 5.6 gm/dl (6.0-8.3)
[2023-03-13] MEDS: LEVOTHYROXINE SODIUM 50 MCG TABLET PO SCH (06:35)
[2023-03-13] MEDS: HYDROCORTISONE 10 MG TAB PO SCH ×2 (06:36→11:49)
[2023-03-13] MEDS: GABAPENTIN 250 MG/5 ML 470 ML BTL PO SCH ×3 (08:49→20:23)
--- NOTE | 2023-03-13 08:50 | Critical Care Progress Note ---
Date of Service March 13, 2023 Assessment & Plan (1) Seizure-like activity: (2) Epigastric abdominal pain: (3) Pain disorder: (4) Infection due to Port-A-Cath: Plan Impression: 33-year-old female with visceral hyperalgesia and acute on chronic abdominal pain and associated Superman's enteric artery syndrome. The patient had a stimulator implant placed for pain control. Unfortunately she appears to have had a intravascular infection with recent removal of a port which is growing methicillin sensitive Staph aureus as well as Pseudomonas. She had been on daptomycin and Cipro. ID consultation is pending. She presented to the emergency room due to lethargy and had her temporary stimulator removed due to concerns about infection. She is in the ICU as she is receiving ketamine for pain control. Recommendations: 1. Acute on chronic pain syndrome: Management per pain services. 2. Intravascular infection: ID consultation reviewed. They recommend cefepime for 14 days. 3. History of adrenal insufficiency. No indication for adrenal crisis. Continue baseline 4. Mild anemia. No evidence of acute blood loss currently. No indication for transfusion. Continue to follow clinically. 5. Hypokalemia: Initiate ICU electrolyte replacement protocol. 6. Patient's other outpatient medications will be continued. DVT prophylaxis not necessary as the patient is at her baseline level of activity. Discussed with the hospital service. She does not have a critical care need at this point in time. The hospitalist service is agreeable to managing her. Crit [facility] care services will be on standby if she should develop a critical care issue. Otherwise her care will be directed by her primary admitting service. Admission and Anticipated Discharge Date Admission Date: March 10, 2023 Subjective No acute events overnight. Review of Systems Review of Systems: All systems reviewed & are unremarkable except as noted in Subjective Physical Exam Physical Exam: Exam deferred as patient is sleeping Results & Data Results & Data Vital Signs (Past 12 Hours) Vital Signs Pulse Resp BP Pulse Ox O2 Del Method 03/13/23 06:50 82 14 95 03/13/23 06:50 106/73 03/13/23 06:45 82 13 96 03/13/23 06:45 101/64 03/13/23 06:40 80 11 L 94 03/13/23 06:40 104/67 03/13/23 06:36 91 H 2 L 95 03/13/23 06:36 88/62 L 03/13/23 06:35 119 H 8 L 94 03/13/23 06:30 78 13 94 03/13/23 06:25 77 13 95 03/13/23 06:20 79 14 95 03/13/23 06:15 81 14 94 03/13/23 06:10 80 13 95 03/13/23 06:05 76 13 95 03/13/23 06:00 83 14 95 03/13/23 06:00 100/66 03/13/23 05:00 79 11 L 96 03/13/23 05:00 100/66 03/13/23 04:00 75 14 96 03/13/23 04:00 97/62 L 03/13/23 03:30 73 10 L 96 03/13/23 03:30 102/68 03/13/23 03:25 80 10 L 95 03/13/23 03:25 101/65 03/13/23 03:20 81 14 95 03/13/23 03:20 104/73 03/13/23 03:15 95 H 13 95 03/13/23 03:15 116/80 03/13/23 03:10 80 12 95 03/13/23 03:10 92/60 L 03/13/23 03:08 92/60 L 03/13/23 03:08 72 10 L 95 03/13/23 03:05 83 0 L 95 03/13/23 03:00 75 13 96 03/13/23 03:00 90/61 L 03/13/23 02:00 87 13 95 03/13/23 02:00 94/69 L 03/12/23 21:17 97 H 33 H 136/93 96 Room Air 03/12/23 21:12 109 H 32 H 127/91 99 Room Air 03/12/23 21:07 78 7 L 106/75 96 Room Air 03/13/23 01:35 84 10 L 96 03/13/23 01:30 87 13 96 03/13/23 01:25 87 12 95 03/13/23 01:20 86 12 95 03/13/23 01:15 88 8 L 96 03/13/23 01:10 90 7 L 95 03/13/23 01:10 110/78 03/13/23 01:05 96 H 9 L 95 03/13/23 01:05 107/74 03/13/23 01:00 93 H 14 96 03/13/23 01:00 112/82 03/13/23 00:55 88 12 97 03/13/23 00:55 113/85 03/13/23 00:53 97 H 8 L 96 03/13/23 00:53 120/104 H 03/13/23 00:50 108 H 11 L 93 03/13/23 00:45 91 H 6 L 95 03/13/23 00:40 102 H 12 96 03/13/23 00:35 85 14 96 03/13/23 00:30 113 H 11 L 96 03/13/23 00:25 92 H 8 L 96 03/13/23 00:20 93 H 13 96 03/13/23 00:17 102/71 03/13/23 00:17 99 H 13 93 03/13/23 00:15 98 H 12 96 03/13/23 00:10 119 H 18 95 03/13/23 00:05 107 H 10 L 95 03/13/23 00:00 106 H 10 L 96 03/12/23 23:55 102 H 8 L 95 03/12/23 23:50 103 H 15 95 03/12/23 23:45 110 H 14 96 03/12/23 23:40 94 H 11 L 96 03/12/23 23:35 112 H 9 L 97 03/12/23 23:30 106 H 12 96 03/12/23 23:25 115 H 16 97 03/12/23 23:20 134 H 12 96 03/12/23 23:15 136 H 16 94 03/12/23 23:15 118/84 03/12/23 23:11 129 H 16 97 03/12/23 23:11 130/101 H 03/12/23 23:10 134 H 14 93 03/12/23 23:05 112 H 12 94 03/12/23 23:05 105/90 03/12/23 23:00 119 H 7 L 95 03/12/23 23:00 121/85 03/12/23 22:55 116 H 13 97 03/12/23 22:55 125/83 03/12/23 22:50 121 H 13 97 03/12/23 22:50 123/85 03/12/23 22:45 112 H 13 96 03/13/23 00:00 108 H 03/12/23 21:35 86 10 L 97 03/12/23 21:35 128/92 03/12/23 21:30 78 11 L 97 03/12/23 21:30 118/85 03/12/23 21:25 84 12 03/12/23 21:20 100 H 10 L 97 03/12/23 21:20 136/93 03/12/23 21:15 92 H 13 98 03/12/23 21:11 127/91 03/12/23 21:11 99 H 6 L 98 03/12/23 21:10 108 H 9 L 96 03/12/23 21:05 82 10 L 96 03/12/23 21:04 77 11 L 96 03/12/23 21:04 115/82 03/12/23 21:03 76 11 L 97 03/12/23 21:03 108/78 03/12/23 21:02 118/83 03/12/23 21:02 77 12 97 03/12/23 21:01 92 H 7 L 98 03/12/23 21:01 123/85 03/12/23 21:00 94 H 4 L 96 03/12/23 20:55 101 H 7 L 03/12/23 20:55 116/82 03/12/23 20:50 77 11 L 95 03/12/23 20:50 111/85 Laboratory Results 03/13/23 04:49 03/13/23 04:49 Diagnostic Findings No new imaging Coding Level of Care Code 93719 SUB INP/OBS CARE 06/11MIN Diagnoses Seizure-like activity R56.9 Epigastric abdominal pain R10.13 Pain disorder R52 Infection due to Port-A-Cath T80.219A
[2023-03-13] MEDS: CHOLECALCIFEROL 1,000 UNITS 25 MCG TAB PO SCH (08:51)
[2023-03-13] MEDS: PANTOprazole 40 MG TAB PO SCH (08:51)
[2023-03-13] MEDS: FAMOTIDINE 20 MG TAB PO SCH ×2 (08:51→20:26)
[2023-03-13] MEDS: PYRIDOXINE HCL 50 MG TAB PO SCH (08:51)
[2023-03-13] MEDS: FLUDROCORTISONE ACETATE 0.1 MG TAB PO SCH ×2 (08:51→20:27)
[2023-03-13] MEDS: DULoxetine HCL 60 MG CAP PO SCH (08:52)
[2023-03-13] MEDS: METHOCARBAMOL 750 MG TABLET PO SCH ×3 (08:52→20:27)
[2023-03-13] MEDS: oxyCODONE HCL SOLN 5 MG/5 ML UDC PO PRN ×2 (11:48→17:29)
[2023-03-13] MEDS ORDERED: LORazepam 2 MG/1 ML VIAL IV STA (12:36)
--- NOTE | 2023-03-13 17:31 | Hospitalist Progress Note ---
Date of Service March 13, 2023 Assessment & Plan (1) Central line infection: Plan: Given that it was a central line infection, given that she did have rigors, and given that she does have a line in on the opposite side, blood cultures make this apepar that fortunately it is simply a line infection not with subsequent bacteremia, but this is appearing to be the case Spinal cord stimulator trial lead was removednothing appearing grossly infectious about it, cultures on the lead are thus far negative as well. (It is listed in the EMR under "catheter tip, PICC" because there was nowhere in the orders to culture a spinal cord stimulator lead) the former port site itself has looked clean dry intact with no evidence of cellulitis, abscess, exudate, etc. (2) Visceral hyperalgesia: Plan: in discussion with the patient, it seems that the spinal cord stimulator trial was showing improvement, the question would be whether it was enough improvement to be a superior option compared to intrathecal pump. Pain management weighing options, agree that an ongoing weighing of risks and benefits of both approaches is the right way to follow through. Unfortunately until this infection is cl eared no further progress can be made on this, but will try to facilitate further progress/therapeutic trial/etc. as quickly as possible after the infection has cleared in the meantime, we will follow her pain now that the spinal cord stimulator trial lead is out, as that may also provide some degree of clue as far as the pain relief it was providing thus far; will continue with our current mode of treatment with as needed ketamine which has been helpful in controlling the pain/providing respite from the pain, while minimizing narcotics that could impact GI motility in discussion with pain management 03/12, they will try to get her scheduled for the week of 6essentially as soon as she is completing her current course of antibiotics. epidural trial then (3) DVT prophylaxis: Plan: ambulation (4) Discharge planning issues: Plan: ICU given the need for ketamine. Anticipate her going home Once cefepime set up for home and pain is under reasonable control. Admission and Anticipated Discharge Date Admission Date: March 10, 2023 Subjective pain up and down. vomiting - nauseated when i see her. later revisited - sleeping. updated mother. Review of Systems Review of Systems: All systems reviewed & are unremarkable except as noted in HPI & below Physical Exam Physical Exam: nauseated/vomiting, later resting. Results & Data Results & Data Vital Signs (Past 12 Hours) Vital Signs Temp Pulse Pulse Resp BP BP Pulse Ox 03/13/23 15:50 78 13 95 03/13/23 15:50 122/86 03/13/23 15:45 79 14 95 03/13/23 15:45 127/88 03/13/23 15:40 88 10 L 96 03/13/23 15:40 124/91 03/13/23 15:35 93 H 12 95 03/13/23 15:35 129/92 03/13/23 15:30 90 13 95 03/13/23 15:30 128/80 03/13/23 15:25 91 H 11 L 96 03/13/23 15:25 119/81 03/13/23 13:17 75 11 L 113/78 96 03/13/23 13:12 81 11 L 116/76 97 03/13/23 13:08 75 11 L 108/76 96 03/13/23 13:03 74 10 L 108/76 96 03/13/23 08:00 86 03/13/23 08:00 97.9 F 03/13/23 09:35 79 10 L 104/77 96 03/13/23 09:30 92 H 12 94 03/13/23 09:30 119/74 03/13/23 09:25 103 H 7 L 95 03/13/23 09:25 113/81 03/13/23 09:20 91 H 13 95 03/13/23 09:20 124/78 03/13/23 09:00 80 14 94 03/13/23 09:00 99/66 L 03/13/23 08:00 75 10 L 94 03/13/23 08:00 94/65 L 03/13/23 07:00 81 13 94 03/13/23 07:00 88/56 L 03/13/23 06:50 82 14 95 03/13/23 06:50 106/73 03/13/23 06:45 82 13 96 03/13/23 06:45 101/64 03/13/23 06:40 80 11 L 94 03/13/23 06:40 104/67 03/13/23 06:36 91 H 2 L 95 03/13/23 06:36 88/62 L 03/13/23 06:35 119 H 8 L 94 03/13/23 06:30 78 13 94 03/13/23 06:25 77 13 95 03/13/23 06:20 79 14 95 03/13/23 06:15 81 14 94 03/13/23 06:10 80 13 95 03/13/23 06:05 76 13 95 03/13/23 06:00 83 14 95 03/13/23 06:00 100/66 O2 Del Method 03/13/23 15:50 03/13/23 15:50 03/13/23 15:45 03/13/23 15:45 03/13/23 15:40 03/13/23 15:40 03/13/23 15:35 03/13/23 15:35 03/13/23 15:30 Room Air 03/13/23 15:30 03/13/23 15:25 03/13/23 15:25 03/13/23 13:17 Room Air 03/13/23 13:12 Room Air 03/13/23 13:08 Room Air 03/13/23 13:03 Room Air 03/13/23 08:00 03/13/23 08:00 03/13/23 09:35 03/13/23 09:30 03/13/23 09:30 03/13/23 09:25 03/13/23 09:25 03/13/23 09:20 03/13/23 09:20 03/13/23 09:00 03/13/23 09:00 03/13/23 08:00 03/13/23 08:00 03/13/23 07:00 03/13/23 07:00 Room Air 03/13/23 06:50 03/13/23 06:50 03/13/23 06:45 03/13/23 06:45 03/13/23 06:40 03/13/23 06:40 03/13/23 06:36 03/13/23 06:36 03/13/23 06:35 03/13/23 06:30 03/13/23 06:25 03/13/23 06:20 03/13/23 06:15 03/13/23 06:10 03/13/23 06:05 03/13/23 06:00 03/13/23 06:00 PG Care Time/CCT Total # of Minutes Spent Total Time Spent with Patient: Total time spent is greater than 50% in coordination of care (as documented) at patient's floor/unit and/or counseling patient: Coding Level of Care Code 14042 SUB INP/OBS CARE 3/50MIN Diagnoses Central line infection T80.219A Visceral hyperalgesia R19.8 DVT prophylaxis Z29.9 Discharge planning issues Z02.9
[2023-03-13] MEDS: DICYCLOMINE HCL 10 MG CAP PO PRN ×2 (20:22→20:25)
[2023-03-13] MEDS: BETHANECHOL CHL 25 MG TAB PO PRN (20:25)
[2023-03-13] MEDS: FEXOFENADINE HCL 180 MG TAB PO SCH (20:26)
[2023-03-13] MEDS: MULTIVITAMIN TAB PO SCH (20:28)
[2023-03-14] MEDS: KETAMINE HCL IV PRN ×9 (00:13→22:39)
[2023-03-14] MEDS: SODIUM CHLORIDE 0.9% IV PRN ×9 (00:13→22:39)
[2023-03-14] MEDS: LORazepam 0.5 mg IV INJ IV PRN ×4 (00:15→20:28)
[2023-03-14] MEDS: CHECK fentaNYL PATCH PLACEMENT SCH ×4 (01:00→23:11)
[2023-03-14] MEDS: CEFEPIME 2,000 MG in SYRINGE 0 ML IV SCH ×3 (01:31→15:37)
[2023-03-14] MEDS: NSS + 20MEQ KCL 20 MEQ/1,000 ML BAG IV SCH ×3 (02:47→22:39)
[2023-03-14] MEDS: HYDROCORTISONE 10 MG TAB PO SCH ×2 (06:02→11:20)
[2023-03-14] MEDS: ONDANSETRON INJ 2 MG/ML 2 ML VIAL IV PRN ×4 (06:02→22:41)
[2023-03-14] MEDS: LEVOTHYROXINE SODIUM 50 MCG TABLET PO SCH (06:02)
[2023-03-14] MEDS: PANTOprazole 40 MG TAB PO SCH (09:20)
[2023-03-14] MEDS: DULoxetine HCL 60 MG CAP PO SCH (09:20)
[2023-03-14] MEDS: BETHANECHOL CHL 25 MG TAB PO PRN ×2 (09:20→20:28)
[2023-03-14] MEDS: CHOLECALCIFEROL 1,000 UNITS 25 MCG TAB PO SCH (09:20)
[2023-03-14] MEDS: FAMOTIDINE 20 MG TAB PO SCH ×2 (09:21→20:28)
[2023-03-14] MEDS: FLUDROCORTISONE ACETATE 0.1 MG TAB PO SCH ×2 (09:21→20:29)
[2023-03-14] MEDS: PYRIDOXINE HCL 50 MG TAB PO SCH (09:21)
[2023-03-14] MEDS: METHOCARBAMOL 750 MG TABLET PO SCH ×3 (09:21→20:30)
[2023-03-14] MEDS: DICYCLOMINE HCL 10 MG CAP PO PRN (09:21)
[2023-03-14] MEDS: GABAPENTIN 250 MG/5 ML 470 ML BTL PO SCH ×3 (09:44→20:28)
[2023-03-14] MEDS: oxyCODONE HCL SOLN 5 MG/5 ML UDC PO PRN (11:19)
--- NOTE | 2023-03-14 17:07 | Hospitalist Progress Note ---
Date of Service March 14, 2023 Assessment & Plan (1) Central line infection: Plan: Blood cultures reassuring. Appears to be line/site infection only. Spinal cord stimulator trial lead was removednothing appearing grossly infectious about it, cultures on the lead are negative as well. (It is listed in the EMR under "catheter tip, PICC" because there was nowhere in the orders to culture a spinal cord stimulator lead) the former port site itself has looked clean dry intact with no evidence of cellulitis, abscess, exudate, etc. Treating with cefepime through a.m. dose on ase management worked with her [employer] to get the IV antibiotics set up for home, unfortunately they cannot be started at home until Thursday at the soonest (2) Visceral hyperalgesia: Plan: in discussion with the patient, it seems that the spinal cord stimulator trial was showing improvement, the question would be whether it was enough improvement to be a superior option compared to intrathecal pump. Pain management weighing options, agree that an ongoing weighing of risks and benefits of both approaches is the right way to follow through. Unfortunately until this infection is cleared no further progress can be made on this, but will try to facilitate further progress/therapeutic trial/etc. as quickly as possible after the infection has cleared in the meantime, pain does appear worse now that the spinal cord stimulator trial lead is out; will continue with our current mode of treatment with as needed ketamine which has been helpful in controlling the pain/providing respite from the pain, while minimizing narcotics that could impact GI motility in discussion with pain management 03/12, they will try to get her scheduled for the week of ssentially as soon as she is completing her current course of antibiotics. epidural trial then (3) DVT prophylaxis: Plan: ambulation (4) Discharge planning issues: Plan: maintain inICU given the need for ketamine. Anticipate her going home once cefepime set up for home and pain is under reasonable control. Admission and Anticipated Discharge Date Admission Date: March 10, 2023 Subjective pain a little worse today but in range that right now she doesn't think more needs to be down. mid/lower abd sometimes twisting sometimes stabbing radiating to low back Physical Exam Physical Exam: gen aao pleasant moderately uncomfortable from her belly. HEENT normocephalic atraumatic mucous membranes moist. Breathing unlabored no accessory muscle use good effort. Skin shows no rashes no pallor or icterus. Neuro without focal deficits. Results & Data Results & Data Vital Signs (Past 12 Hours) Vital Signs Pulse Pulse Resp BP BP Pulse Ox O2 Del Method 03/14/23 15:55 96 H 14 103/56 L 94 Room Air 03/14/23 15:50 98 H 14 109/71 92 Room Air 03/14/23 15:45 97 H 14 113/71 95 Room Air 03/14/23 15:40 92 H 14 110/74 95 Room Air 03/14/23 15:44 80 03/14/23 13:25 85 12 117/72 95 Room Air 03/14/23 13:20 84 12 117/72 94 Room Air 03/14/23 13:15 84 14 117/80 93 Room Air 03/14/23 13:10 82 14 117/78 94 Room Air 03/14/23 12:00 82 14 118/83 94 Room Air 03/14/23 12:00 80 03/14/23 11:02 74 14 102/77 95 Room Air 03/14/23 10:01 95 H 14 113/83 92 Room Air 03/14/23 09:34 98 H 14 121/66 95 Room Air 03/14/23 09:29 94 H 14 118/79 94 Room Air 03/14/23 09:24 88 14 110/76 95 Room Air 03/14/23 09:19 85 14 112/78 95 Room Air 03/14/23 09:00 64 14 90/60 L 95 Room Air 03/14/23 08:00 70 14 89/58 L 94 Room Air 03/14/23 07:00 85 14 98/57 L 94 Room Air 03/14/23 08:00 80 03/14/23 06:40 80 14 95 03/14/23 06:35 80 14 95 03/14/23 06:35 93/59 L 03/14/23 06:30 81 12 95 03/14/23 06:30 91/62 L 03/14/23 06:25 85 10 L 95 03/14/23 06:25 97/63 L 03/14/23 06:20 87 10 L 96 03/14/23 06:20 106/72 03/14/23 06:15 91 H 10 L 96 03/14/23 06:15 116/73 03/14/23 06:10 95 H 17 96 03/14/23 06:10 107/72 03/14/23 06:09 109/72 03/14/23 06:09 104 H 8 L 94 03/14/23 06:05 80 13 95 03/14/23 06:00 99 H 10 L 95 03/14/23 06:00 108/69 PG Care Time/CCT Total # of Minutes Spent Total Time Spent with Patient: Total time spent is greater than 50% in coordination of care (as documented) at patient's floor/unit and/or counseling patient: Coding Level of Care Code 29365 SUB INP/OBS CARE 3/50MIN Diagnoses Central line infection T80.219A Visceral hyperalgesia R19.8 DVT prophylaxis Z29.9 Discharge planning issues Z02.9
[2023-03-14] MEDS: FEXOFENADINE HCL 180 MG TAB PO SCH (20:29)
[2023-03-14] MEDS: MULTIVITAMIN TAB PO SCH (20:30)
[2023-03-15] MEDS: CEFEPIME 2,000 MG in SYRINGE 0 ML IV SCH ×3 (02:00→17:04)
[2023-03-15] MEDS: KETAMINE HCL IV PRN ×9 (02:38→23:17)
[2023-03-15] MEDS: SODIUM CHLORIDE 0.9% IV PRN ×9 (02:38→23:17)
[2023-03-15] MEDS: LORazepam 0.5 mg IV INJ IV PRN ×3 (03:46→15:19)
[2023-03-15] MEDS: HYDROCORTISONE 10 MG TAB PO SCH ×2 (06:46→13:24)
[2023-03-15] MEDS: LEVOTHYROXINE SODIUM 50 MCG TABLET PO SCH (06:46)
[2023-03-15] MEDS: ONDANSETRON INJ 2 MG/ML 2 ML VIAL IV PRN ×3 (07:35→15:19)
[2023-03-15] MEDS: FLUDROCORTISONE ACETATE 0.1 MG TAB PO SCH ×2 (09:31→21:09)
[2023-03-15] MEDS: PANTOprazole 40 MG TAB PO SCH (09:31)
[2023-03-15] MEDS: CHOLECALCIFEROL 1,000 UNITS 25 MCG TAB PO SCH (09:31)
[2023-03-15] MEDS: PYRIDOXINE HCL 50 MG TAB PO SCH (09:31)
[2023-03-15] MEDS: GABAPENTIN 250 MG/5 ML 470 ML BTL PO SCH ×3 (09:31→21:13)
[2023-03-15] MEDS: DULoxetine HCL 60 MG CAP PO SCH (09:31)
[2023-03-15] MEDS: METHOCARBAMOL 750 MG TABLET PO SCH ×3 (09:31→21:11)
[2023-03-15] MEDS: FAMOTIDINE 20 MG TAB PO SCH ×2 (09:32→21:09)
[2023-03-15] MEDS: CHECK fentaNYL PATCH PLACEMENT SCH ×3 (09:32→23:51)
[2023-03-15] MEDS: fentaNYL 75 MCG/HR TDSY TD SCH (09:33)
[2023-03-15] MEDS: NSS + 20MEQ KCL 20 MEQ/1,000 ML BAG IV SCH ×2 (09:33→23:51)
[2023-03-15] MEDS: DICYCLOMINE HCL 10 MG CAP PO PRN ×2 (10:06→21:06)
[2023-03-15] MEDS: BETHANECHOL CHL 25 MG TAB PO PRN ×2 (10:06→21:06)
[2023-03-15] MEDS: oxyCODONE HCL SOLN 5 MG/5 ML UDC PO PRN ×3 (12:33→21:18)
--- NOTE | 2023-03-15 19:08 | Hospitalist Progress Note ---
Date of Service March 15, 2023 Assessment & Plan (1) Central line infection: Plan: Blood cultures NGTD. Appears to be line/site infection only. Spinal cord stimulator trial lead was removednothing appearing grossly infectious about it, cultures on the lead are negative as well. (It is listed in the EMR under "catheter tip, PICC" because there was nowhere in the orders to culture a spinal cord stimulator lead) the former port site itself has looked clean dry intact with no evidence of cellulitis, abscess, exudate, etc. Treating with cefepime through a.m. dose on ase management worked with her [employer] to get the IV antibiotics set up for home, unfortunately they cannot be started at home until Thursday at the soonest (2) Visceral hyperalgesia: Plan: in discussion with the patient, it seems that the spinal cord stimulator trial was showing improvement, the question would be whether it was enough improvement to be a superior option compared to intrathecal pump. Pain management weighing options, agree that an ongoing weighing of risks and benefits of both approaches is the right way to follow through. Unfortunately until this infection is cleared no further progress can be made on this, but will try to facilitate further progress/therapeutic trial/etc. as quickly as possible after the infection has cleared in the meantime, pain does appear worse now that the spinal cord stimulator trial lead is out; will continue with our current mode of treatment with as needed ketamine which has been helpful in controlling the pain/providing respite from the pain, while minimizing narcotics that could impact GI motility. i do suspect some of today's pain is from slow stool throughput given the change to watery/green - possibly representing a degree of overflow. miralax 17g BID (d/w pt i don't think she'll realistically take 34g, but sipping at what she can, that amount should hopefully help act as a stool softener) continue ketamine/oxycodone prn for pain zofran/ativan for nausea - scheduling zofran q6, tightening ativan to q4 prn in discussion with pain management 03/12, they will try to get her scheduled for the week of 6essentially as soon as she is completing her current course of antibiotics. epidural trial then (3) DVT prophylaxis: Plan: ambulation (4) Discharge planning issues: Plan: maintain inICU given the need for ketamine. Anticipate her going home once cefepime set up for home and pain is under reasonable control. RUE venous doppler - suspect hand swelling is from IV site but r/o UE DVT Admission and Anticipated Discharge Date Admission Date: March 10, 2023 Subjective belly pain worse today sharp some up and down definitely worse after trying to eat anything radiates to lower back which is also stabbing in pain. definitely triggered by attempt to eat, also waxes and wanes on its own somewhat randomly. stool in bag all just thin green liquid. normally pudding consistency brown. had some rectal discharge prior to admission as well. some nausea worse as well. port site feels fine. lastly a little concerned about R hand swelling. Review of Systems Review of Systems: All systems reviewed & are unremarkable except as noted in HPI & below Physical Exam Physical Exam: sitting up leaning forward tearful. L upper chest wall port site c/d/i no erythema no exudate. abd soft maybe mildlly distended for her diffuse tenderness more mid and lower abdomen scattered firmess which is the norm for her - no real guarding or rebound no rigidity. stool in bag watery and bile green. b/l lumbar > thoracic paraspinals high tone/tender/decreased ROM, no erythema exudate bony tenderness etc. R hand puffy swelling no arm swelling or cords. Results & Data Results & Data Vital Signs (Past 12 Hours) Vital Signs Temp Pulse Resp BP Pulse Ox O2 Del Method 03/15/23 17:35 100 H 12 93 03/15/23 17:30 107 H 14 93 03/15/23 17:30 126/88 03/15/23 17:25 114 H 12 95 03/15/23 17:25 131/89 03/15/23 17:20 118 H 13 03/15/23 17:20 127/87 03/15/23 17:16 116 H 17 95 03/15/23 17:16 129/90 03/15/23 17:15 129 H 14 94 03/15/23 17:11 117 H 14 95 03/15/23 17:11 119/83 03/15/23 17:10 111 H 12 97 03/15/23 17:05 103 H 12 96 03/15/23 17:00 93 H 12 127/89 92 03/15/23 16:00 83 12 94 03/15/23 15:35 125/99 03/15/23 15:35 94 H 13 94 03/15/23 15:21 108 H 14 93 03/15/23 15:21 115/94 03/15/23 15:01 102 H 14 95 03/15/23 15:01 114/92 03/15/23 15:00 94 H 13 99 03/15/23 14:00 63 12 95 03/15/23 13:12 108/73 03/15/23 13:12 89 17 94 03/15/23 13:00 85 16 03/15/23 12:45 68 17 101/66 94 03/15/23 12:40 71 16 96/72 L 93 Room Air 03/15/23 12:35 111/75 03/15/23 12:35 89 13 96 03/15/23 12:00 75 12 96 03/15/23 11:00 100/65 03/15/23 11:00 74 16 93 03/15/23 10:15 107/93 03/15/23 10:15 85 12 94 03/15/23 10:10 82 12 95 03/15/23 10:10 114/82 03/15/23 10:01 67 12 96 03/15/23 10:01 101/65 03/15/23 10:00 68 12 94 03/15/23 08:00 66 16 94 03/15/23 08:00 102/67 03/15/23 08:00 98.1 F 03/15/23 07:40 89 14 96 03/15/23 07:35 84 17 94 03/15/23 07:35 110/77 03/15/23 07:30 73 17 03/15/23 07:25 68 16 03/15/23 07:25 102/69 03/15/23 07:20 71 17 03/15/23 07:20 106/72 03/15/23 07:15 74 15 03/15/23 07:10 80 14 94 03/15/23 07:10 110/72 03/15/23 07:05 95 H 12 96 03/15/23 07:05 111/70 PG Care Time/CCT Total # of Minutes Spent Total Time Spent with Patient: Total time spent is greater than 50% in coordination of care (as documented) at patient's floor/unit and/or counseling patient: Coding Level of Care Code 09965 SUB INP/OBS CARE 3/50MIN Diagnoses Central line infection T80.219A Visceral hyperalgesia R19.8 DVT prophylaxis Z29.9 Discharge planning issues Z02.9
[2023-03-15] MEDS: ONDANSETRON INJ 2 MG/ML 2 ML VIAL IV SCH (19:31)
[2023-03-15] MEDS: POLYETHYLENE (MIRALAX) 17 GM PACK PO SCH (21:08)
[2023-03-15] MEDS: MULTIVITAMIN TAB PO SCH (21:08)
[2023-03-15] MEDS: FEXOFENADINE HCL 180 MG TAB PO SCH (21:10)
[2023-03-15] MEDS: LORazepam 2 MG/1 ML VIAL IV PRN (22:41)
--- NOTE | 2023-03-15 22:57 | Ultrasound Report ---
Exam(s): US VENOUS RIGHT UPPER EXTREMITY EXAM: US Duplex Right Upper Extremity Veins CLINICAL HISTORY: Reason for exam: edema, r/o DVT. TECHNIQUE: Real-time duplex ultrasound scan of the right upper extremity veins integrating B-mode two-dimensional vascular structure, Doppler spectral analysis, color flow Doppler imaging and compression. COMPARISON: No relevant prior studies available. FINDINGS: Deep veins: Unremarkable. No DVT in the internal jugular, subclavian, axillary, or brachial veins. The veins demonstrate normal color flow, are normally compressible, with normal phasic flow and/or augmentation response. Superficial veins: Nonocclusive thrombus visualized within the superficial vessels of the RIGHT posterior forearm, an area of swelling. Soft tissues: No acute findings. IMPRESSION: No DVT of the RIGHT upper extremity. Nonocclusive thrombus visualized within the superficial vessels of the RIGHT posterior forearm, an area of swelling. Electronically signed by: Mikel Blevins MD 03/15/23 22:56 PM
[2023-03-16] MEDS ORDERED: LORazepam 2 MG/1 ML VIAL IV STA (00:27)
[2023-03-16] MEDS: CEFEPIME 2,000 MG in SYRINGE 0 ML IV SCH ×3 (00:31→16:25)
[2023-03-16] MEDS: ONDANSETRON INJ 2 MG/ML 2 ML VIAL IV SCH ×4 (00:31→18:06)
[2023-03-16] MEDS: oxyCODONE HCL SOLN 5 MG/5 ML UDC PO PRN ×5 (01:15→22:23)
[2023-03-16] MEDS: KETAMINE HCL IV PRN ×11 (01:29→22:24)
[2023-03-16] MEDS: SODIUM CHLORIDE 0.9% IV PRN ×11 (01:29→22:24)
[2023-03-16] MEDS: LORazepam 2 MG/1 ML VIAL IV PRN ×6 (03:29→20:15)
[2023-03-16] MEDS: LEVOTHYROXINE SODIUM 50 MCG TABLET PO SCH (05:28)
[2023-03-16] MEDS: HYDROCORTISONE 10 MG TAB PO SCH ×2 (06:39→12:13)
--- NOTE | 2023-03-16 07:26 | Hospitalist Progress Note ---
Date of Service March 16, 2023 Assessment & Plan (1) Central line infection: Plan: Blood cultures NGTD. Appears to be line site infection only. Spinal cord stimulator trial lead was removednothing appearing grossly infectious about it, cultures on the lead are negative as well. (It is listed in the EMR under "catheter tip, PICC" because there was nowhere in the orders to culture a spinal cord stimulator lead) the former port site continues to look clean dry intact with no evidence of cellulitis, abscess, exudate, etc. Treating with cefepime through a.m. dose on ase management worked with her [employer] to get the IV antibiotics set up for home, unfortunately they cannot be started at home until Thursday at the soonest (2) Visceral hyperalgesia: Plan: in discussion with the patient, it seems that the spinal cord stimulator trial was showing improvement, the question would be whether it was enough improvement to be a superior option compared to intrathecal pump. Pain management weighing options, agree that an ongoing weighing of risks and benefits of both approaches is the right way to follow through. Unfortunately until this infection is cleared no further progress can be made on this, but will try to facilitate further progress/therapeutic trial/etc. as quickly as possible after the infection has cleared pain does appear worse now that the spinal cord stimulator trial lead is out; will continue as needed ketamine she has been using this more frequently and pain cycle not broken with one dose of dilaudid continue ketamine/oxycodone prn for pain zofran/ativan for nausea - scheduling zofran q6, tightening ativan to q4 prn in discussion with pain management 03/12, they will try to get her scheduled for the week of ssentially as soon as she is completing her current course of antibiotics. epidural trial then (3) DVT prophylaxis: Plan: ambulation (4) Discharge planning issues: Plan: maintain inICU given the need for ketamine. Anticipate her going home once cefepime set up for home and pain is under reasonable control. RUE venous doppler - suspect hand swelling is from IV site but r/o UE DVT Admission and Anticipated Discharge Date Admission Date: March 10, 2023 Subjective pt with worsened right sided abdominal pain for last 18hours, feels secondary to taking miralax, after long discussion will have one dose Dilaudid, continue ketamine Physical Exam Physical Exam: pt is awake and alert endorsed right sided abdominal pain. peristomal, typical to her usual Results & Data Results & Data Vital Signs (Past 12 Hours) Vital Signs Temp Pulse Pulse Resp BP BP Pulse Ox 03/16/23 05:55 78 10 L 111/74 95 03/16/23 05:45 127 H 20 115/92 94 03/16/23 05:00 82 11 L 107/71 94 03/16/23 04:05 80 14 107/68 94 03/16/23 04:00 80 14 103/75 94 03/16/23 03:55 112/77 03/16/23 03:50 100/69 03/16/23 05:50 107/77 95 03/16/23 05:45 115/92 03/16/23 04:00 97.9 F 80 14 103/75 94 03/16/23 03:55 78 12 112/77 94 03/16/23 03:50 80 100/69 93 03/16/23 03:46 76 13 100/73 93 03/16/23 03:00 75 0 L 116/82 93 03/16/23 02:00 98.1 F 85 9 L 124/89 93 03/16/23 01:45 132/83 03/16/23 01:40 98.1 F 122/86 03/16/23 01:35 119/81 03/16/23 01:34 119/84 03/16/23 01:20 86 10 L 107/82 94 03/16/23 00:00 98.1 F 119 H 10 L 121/87 94 03/16/23 01:01 128 H 03/15/23 23:25 100 H 132/92 03/15/23 23:20 125/87 03/15/23 23:01 98.1 F 112 H 16 126/70 91 03/15/23 22:00 98.1 F 81 10 L 138/95 95 03/15/23 21:35 83 16 129/97 95 03/15/23 21:20 98.1 F 116 H 15 118/87 93 03/15/23 21:17 109 H 16 120/93 96 03/15/23 21:01 98.1 F 95 H 11 L 131/87 96 03/15/23 21:00 82 13 93 03/15/23 20:00 87 14 119/89 94 03/15/23 19:35 90 14 O2 Del Method 03/16/23 05:55 Room Air 03/16/23 05:45 03/16/23 05:00 Room Air 03/16/23 04:05 03/16/23 04:00 03/16/23 03:55 03/16/23 03:50 03/16/23 05:50 Room Air 03/16/23 05:45 03/16/23 04:00 Room Air 03/16/23 03:55 Room Air 03/16/23 03:50 Room Air 03/16/23 03:46 Room Air 03/16/23 03:00 03/16/23 02:00 03/16/23 01:45 03/16/23 01:40 03/16/23 01:35 03/16/23 01:34 03/16/23 01:20 Room Air 03/16/23 00:00 Room Air 03/16/23 01:01 03/15/23 23:25 03/15/23 23:20 03/15/23 23:01 03/15/23 22:00 03/15/23 21:35 03/15/23 21:20 03/15/23 21:17 Room Air 03/15/23 21:01 Room Air 03/15/23 21:00 03/15/23 20:00 Room Air 03/15/23 19:35 Laboratory Results reviewed cbc revieewed chemistry PG Care Time/CCT Total # of Minutes Spent Total Time Spent with Patient: Total time spent is greater than 50% in coordination of care (as documented) at patient's floor/unit and/or counseling patient: Coding Level of Care Code 82407 SUB INP/OBS CARE 2/35MIN Diagnoses Central line infection T80.219A Visceral hyperalgesia R19.8 DVT prophylaxis Z29.9 Discharge planning issues Z02.9
[2023-03-16] MEDS: CHECK fentaNYL PATCH PLACEMENT SCH ×2 (07:52→14:04)
[2023-03-16] MEDS: DICYCLOMINE HCL 10 MG CAP PO PRN ×2 (07:59→18:12)
[2023-03-16] MEDS: BETHANECHOL CHL 25 MG TAB PO PRN ×2 (07:59→20:23)
[2023-03-16] MEDS: ONDANSETRON INJ 2 MG/ML 2 ML VIAL IV PRN (07:59)
[2023-03-16] MEDS: POLYETHYLENE (MIRALAX) 17 GM PACK PO SCH ×2 (08:01→20:24)
[2023-03-16] MEDS: FAMOTIDINE 20 MG TAB PO SCH ×2 (08:02→20:24)
[2023-03-16] MEDS: PYRIDOXINE HCL 50 MG TAB PO SCH (08:02)
[2023-03-16] MEDS: CHOLECALCIFEROL 1,000 UNITS 25 MCG TAB PO SCH (08:02)
[2023-03-16] MEDS: METHOCARBAMOL 750 MG TABLET PO SCH ×3 (08:02→20:25)
[2023-03-16] MEDS: PANTOprazole 40 MG TAB PO SCH (08:02)
[2023-03-16] MEDS: GABAPENTIN 250 MG/5 ML 470 ML BTL PO SCH ×3 (08:02→20:28)
[2023-03-16] MEDS: DULoxetine HCL 60 MG CAP PO SCH (08:02)
[2023-03-16] MEDS: FLUDROCORTISONE ACETATE 0.1 MG TAB PO SCH ×2 (08:02→20:27)
[2023-03-16] MEDS ORDERED: HYDROmorphone INJ 0.5 MG/0.5 ML SYR IV STA (12:11)
[2023-03-16] MEDS: NSS + 20MEQ KCL 20 MEQ/1,000 ML BAG IV SCH (12:30)
[2023-03-16 12:42] LABS: Hematocrit (blood only) 33.9 % (37.0-47.0); Hemoglobin 11.6 g/dl (12.0-16.0); Mean Corpuscular Hemoglobin 30.8 pg (25.0-34.0); Mean Corpuscular Hgb Conc 34.2 g/dL (32.0-36.0); Mean Corpuscular Volume 89.9 fL (80.0-100.0); Mean Platelet Volume 10.2 fL (9.4-12.4); Platelet Count 284 K/uL (130-400); RDW Coefficient of Variation 13.3 % (11.5-14.5); RDW Standard Deviation 43.7 fL (36.4-46.3); Red Blood Count 3.77 M/uL (4.20-5.40); White Blood Count 7.24 K/ul (4.8-10.8)
[2023-03-16] MEDS ORDERED: TPN/PPN CONSULT PHARMACY PRN (12:55)
[2023-03-16 12:59] LABS: BUN Creatinine Ratio 3.2 (10-20); Bilirubin,Total 0.3 mg/dl (0.2-1.0); Calcium 8.5 mg/dl (8.6-10.3); Creatinine Clr Calc Pharmacy 123.1 ml/min; Est GFR (African American) 139.3 ml/min; Est GFR (Non-African American) 120.2 ml/min; Magnesium 1.7 mg/dl (1.7-2.4); Phosphorus 3.5 mg/dl (2.5-4.9); Potassium 3.7 mmol/L (3.5-5.1)
--- NOTE | 2023-03-16 13:13 | Electrocardiogram Report ---
Test Reason : Blood Pressure : / mmHG Vent. Rate : 082 BPM Atrial Rate : 082 BPM P-R Int : 156 ms QRS Dur : 090 ms QT Int : 360 ms P-R-T Axes : 049 029 003 degrees QTc Int : 420 ms Normal sinus rhythm with sinus arrhythmia T wave abnormality, consider anterior ischemia Abnormal ECG When compared with ECG of 11-MAR-2023 19:25, T wave inversion now evident in Anterior leads Confirmed by Dustin Turner ([id number]) on 03/16/2023 1:13:25 PM Referred By: Mariah Addison Confirmed By:Luis Fernando Turner
--- NOTE | 2023-03-16 13:37 | Pharmacy Report ---
Pharmacy PN Initial Consult - Date of Service March 16, 2023 - Scope Pharmacy has been consulted to manage parenteral nutrition orders and order appropriate labs. As part of the Nutrition Support Team guidelines, pharmacy will work in conjunction with dietary when determining the patients caloric needs. - Subjective The patient is a 33 year old F admitted on 03/10/23 17:26 for SEIZURE, LINE SEPSIS. Patient is to receive parenteral nutrition as a continuation from chronic home therapy. Pertinent PMH: - Chronic home TPN - Objective Height: 5 ft 6 in Weight: 62.9 kg Diet: NPO Intake & Output (Last 24Hrs): Intake & Output 03/14/23 03/15/23 03/16/23 03/17/23 06:59 06:59 06:59 06:59 Intake Total 2400.8 / 2400.8 1940.033 / 6419.387 1852.1 / 3153.1 1570.3 / 1570.3 Output Total 50 / 50 901 / 901 600 / 600 Balance 2350.8 / 2350.8 1940.033 / 1319.195 8899.1 / 2252.1 970.3 / 970.3 Weight 62.9 kg 62.9 kg Laboratory Data (Last 24 Hrs):: 03/16/23 12:29 Sodium 140 Potassium 3.7 Chloride 107 Carbon Dioxide 30 BUN 2 L Creatinine 0.62 Glucose 129 H Calcium 8.5 L Phosphorus 3.5 Magnesium 1.7 Total Bilirubin 0.3 AST 15 Alkaline Phosphatase 67 Triglycerides 84 Nutrition Assessment:: Please refer to the Notes section of the EMR for the most recent loan associate note. - Assessment 03/16: * Restarting home TPN. Confirmed with dietitian that we will start at 50% of goal for macronutrients given risk of refeeding syndrome. * Formula faxed to [facility] in prep for discharge tomorrow - Plan For day 1 of TPN administration, the following will be ordered: Macronutrients (50% of goal for day #1) Amino acids 58 grams/day Dextrose 101 grams/day Lipids 50 grams/day Micronutrients Sodium acetate 80 mEq Potassium phosphate 15 mMol Potassium chloride 60 mEq Magnesium sulfate 8.12 mEq Calcium gluconate 9.3 mEq Trace Elements 1 mL Total volume 818 mL to be infused over 18 hrs will provide 1073 kcal/day Cyclic Rates: * 2931-2478 = 24.06 mL/hr * 8820-0858 = 48.12 mL/hr * 3564-0755 = 24.06 mL/hr Labs to be ordered per PN order protocol Pharmacy will follow and adjust parenteral nutrition orders on a daily basis. Thank you.
[2023-03-16] MEDS ORDERED: DEXTROSE 10% 1,000 ML IV PRN (19:00)
[2023-03-16] MEDS: MULTIVITAMIN TAB PO SCH (20:25)
[2023-03-16] MEDS: FEXOFENADINE HCL 180 MG TAB PO SCH (20:26)
[2023-03-16] MEDS ORDERED: [UNRECOGNIZED DRUG - OTHER] IV SCH (21:00)
[2023-03-16] MEDS ORDERED: CENTRAL TPN IV SCH (21:00)
[2023-03-16] MEDS ORDERED: CLINOLIPID 20% IV FAT EMULSION 250 ML IV SCH (21:00)
[2023-03-16] MEDS ORDERED: TPN RATE CHANGE SCH (22:00)
[2023-03-17] MEDS: CHECK fentaNYL PATCH PLACEMENT SCH ×3 (00:19→14:42)
[2023-03-17] MEDS: ONDANSETRON INJ 2 MG/ML 2 ML VIAL IV SCH ×4 (00:19→13:21)
[2023-03-17] MEDS: CEFEPIME 2,000 MG in SYRINGE 0 ML IV SCH ×3 (00:20→14:41)
[2023-03-17] MEDS: oxyCODONE HCL SOLN 5 MG/5 ML UDC PO PRN ×4 (00:20→13:22)
[2023-03-17] MEDS: DICYCLOMINE HCL 10 MG CAP PO PRN ×2 (00:20→09:01)
[2023-03-17] MEDS: SODIUM CHLORIDE 0.9% IV PRN ×5 (00:21→10:14)
[2023-03-17] MEDS: KETAMINE HCL IV PRN ×5 (00:21→10:14)
[2023-03-17] MEDS: LORazepam 2 MG/1 ML VIAL IV PRN ×4 (01:43→14:41)
[2023-03-17] MEDS ORDERED: ONDANSETRON INJ 2 MG/ML 2 ML VIAL IV STA (02:06)
[2023-03-17] MEDS: ONDANSETRON INJ 2 MG/ML 2 ML VIAL IV PRN (02:24)
[2023-03-17] MEDS ORDERED: HYDROmorphone INJ 0.5 MG/0.5 ML SYR IV STA (02:41)
[2023-03-17] MEDS ORDERED: STOP CLINOLIPID SCH (03:00)
[2023-03-17 04:33] LABS: Calcium 8.4 mg/dl (8.6-10.3); Creatinine Clr Calc Pharmacy 127.2 ml/min; Est GFR (African American) 140.8 ml/min; Est GFR (Non-African American) 121.5 ml/min; Magnesium 1.9 mg/dl (1.7-2.4); Phosphorus 3.9 mg/dl (2.5-4.9); Potassium 3.6 mmol/L (3.5-5.1)
[2023-03-17] MEDS: LEVOTHYROXINE SODIUM 50 MCG TABLET PO SCH (05:48)
[2023-03-17] MEDS: BETHANECHOL CHL 25 MG TAB PO PRN (07:56)
[2023-03-17] MEDS: HYDROCORTISONE 10 MG TAB PO SCH ×3 (07:57→13:21)
[2023-03-17] MEDS: PYRIDOXINE HCL 50 MG TAB PO SCH (08:01)
[2023-03-17] MEDS: FLUDROCORTISONE ACETATE 0.1 MG TAB PO SCH (08:01)
[2023-03-17] MEDS: PANTOprazole 40 MG TAB PO SCH (08:01)
[2023-03-17] MEDS: DULoxetine HCL 60 MG CAP PO SCH (08:02)
[2023-03-17] MEDS: GABAPENTIN 250 MG/5 ML 470 ML BTL PO SCH ×2 (08:02→13:22)
[2023-03-17] MEDS: FAMOTIDINE 20 MG TAB PO SCH (08:02)
[2023-03-17] MEDS: METHOCARBAMOL 750 MG TABLET PO SCH ×2 (08:02→13:22)
[2023-03-17] MEDS: CHOLECALCIFEROL 1,000 UNITS 25 MCG TAB PO SCH (08:02)
[2023-03-17] MEDS: POLYETHYLENE (MIRALAX) 17 GM PACK PO SCH (08:05)
[2023-03-17] MEDS ORDERED: SODIUM CHLORIDE 0.9% IV PRN (12:46)
[2023-03-17] MEDS ORDERED: KETAMINE HCL IV PRN (12:46)
--- NOTE | 2023-03-17 13:41 | XRay Report ---
XR KUB/Abdomen 1 view CLINICAL HISTORY: eval sbo TECHNIQUE: 1 view of the abdomen was obtained. Comparison: Comparison is made to abdomen radiograph 02/24/2023 FINDINGS: Stable gastrojejunostomy tube. The osseous structures are grossly unremarkable. The bowel gas pattern is nonobstructive. A moderate amount of stool is noted within the large bowel. IMPRESSION: No evidence of bowel obstruction or other acute abnormality. ACT 112: Negative or not required by law. Electronically signed by: Tony Barnes M.D. 03/17/2023 1:40 PM
[2023-03-17] MEDS ORDERED: ACETAMINOPHEN 500 MG TAB PO SCH (14:00)
[2023-03-17] MEDS ORDERED: TPN RATE CHANGE SCH (14:00)
--- NOTE | 2023-03-17 16:17 | Discharge Summary ---
Date of Service March 17, 2023 Admission HPI Per Admitting Provider The patient is a 33-year-old female with a past medical history including chronic abdominal pain, adrenal insufficiency, hypothyroidism, visceral hyperalgesia, chronic continuous use of opioids, SMAS, chronic severe protein calorie malnutrition, B12 deficiency, folate deficiency and asthma. She was most recently admitted from 02/24-03/01/2023. On 03/05/2023 she had a left- sided port removed, with tip growing MSSA, and port grew MSSA and Pseudomonas aeruginosa, both pansensitive. She was referred into the ED due to positive blood cultures. In the emergency department patient received daptomycin and Cipro IV. She has received ketamine 5 mg IV x1. She will be admitted to the ICU for ketamine protocol. She was also seen in the ED by Dr. Jose De Jesus Hawkins, from [facility], who removed her temporary pain stimulator. Principal Diagnosis Superficial central line infection status post removal of line Acute on chronic abdominal pain Discharge Exam Patient is sleepy but comfortable endorses going home Has an ostomy in her right lower quadrant which is functioning abdomen is tender Discharge Data Allergies Allergy/AdvReac Type Severity Reaction Status Date / Time diphenhydramine Allergy Severe Anaphylaxis Verified 03/10/23 15:13 promethazine Allergy Severe hives, Verified 03/10/23 15:13 throat swelling adhesive Allergy Intermediate Redness of Verified 03/10/23 15:13 Skin amoxicillin Allergy Intermediate RASH Verified 03/10/23 15:13 calcium Allergy Intermediate SEE COMMENT Verified 03/10/23 15:13 [From VIACTIV Multi-Vitamin] cefazolin Allergy Intermediate rash Verified 03/10/23 15:13 Cephalosporins Allergy Intermediate HIVES Verified 03/10/23 15:13 clavulanic acid Allergy Intermediate HIVES Verified 03/10/23 15:13 ferric carboxymaltose Allergy Intermediate Rash Verified 03/10/23 15:13 [From Injectafer] folic acid Allergy Intermediate SEE COMMENT Verified 03/10/23 15:13 [From VIACTIV Multi-Vitamin] iron [From Venofer] Allergy Intermediate Muscle Pain Verified 03/10/23 15:13 multivitamin with minerals Allergy Intermediate SEE COMMENT Verified 03/10/23 15:13 [From VIACTIV Multi-Vitamin] Penicillins Allergy Intermediate HIVES Verified 03/10/23 15:13 prochlorperazine Allergy Intermediate HIVES Verified 03/10/23 15:13 sulfamethoxazole Allergy Intermediate RASH Verified 03/10/23 15:13 sumatriptan Allergy Intermediate RASH Verified 03/10/23 15:13 trimethoprim Allergy Intermediate RASH Verified 03/10/23 15:13 metoclopramide AdvReac Severe anxiety/ Verified 03/10/23 15:13 jittery morphine AdvReac Severe Severe Verified 03/10/23 15:13 abdominal Pain, sphincter of oddi spasms erythromycin base AdvReac Intermediate GI SYMPTOMS Verified 03/10/23 15:13 citalopram [From Celexa] AdvReac Unknown CAN'T Verified 03/10/23 15:13 REMEMBER Consultations 03/10/23 16:40 Consult Pain Management Routine 03/10/23 20:45 Consult Spring Up Supervisor Routine 03/11/23 08:18 Consult Infectious Diseases Routine Ordered Studies 03/15/23 19:03 US venous doppler UE RT Stat Hospital Course (1) Central line infection: Blood cultures NGTD. Appears to be line site infection only. Suture removed from surgical site this is clean dry and intact Spinal cord stimulator trial lead was removednothing appearing grossly infectious about it, cultures on the lead are negative as well. (It is listed in the EMR under "catheter tip, PICC" because there was nowhere in the orders to culture a spinal cord stimulator lead) the former port site continues to look clean dry intact with no evidence of cellulitis, abscess, exudate, etc. Treating with cefepime through a.m. dose on ase management worked with her home health company to get the IV antibiotics set up for home, unfortunately they cannot be started at home until Thursday at the soonest (2) Visceral hyperalgesia: in discussion with the patient, it seems that the spinal cord stimulator trial was showing improvement, the question would be whether it was enough improvement to be a superior option compared to intrathecal pump. Pain management weighing options, agree that an ongoing weighing of risks and benefits of both approaches is the right way to follow through. Unfortunately until this infection is cleared no further progress can be made on this, but will try to facilitate further progress/therapeutic trial/etc. as quickly as possible after the infection has cleared pain does appear worse now that the spinal cord stimulator trial lead is out; will continue as needed ketamine she has been using this more frequently and pain cycle not broken with one dose of dilaudid ketamine/oxycodone prn for pain, patient did have fairly escalated ketamine used in the hospital after her stimulator was removed. This was almost by the clock throughout the evening Can have a continue oxycodone at home as in the past to control her pain schedule a pain management follow-up for March 23 at 9:15 AM in discussion with pain management 03/12, they will try to get her scheduled for the week of ssentially as soon as she is completing her current course of antibiotics. epidural trial then Total Time Total Time Spent Total Time Spent (In Minutes): It required greater than 30 minutes to prepare this patient for discharge Discharge Plan Discharge Items Patient Disposition: Home - Self-Care Reason For Visit: SEIZURE, LINE SEPSIS Discharge Diagnosis: superficial infection of Mediport side acute on chronic pain Activity: Resume your previous activity Non-emergency contact: Primary Care Provider and Urologist Call non-emergency contact if: your symptoms worsen Follow-up/Referrals: Jose De Jesus Hawkins MD, FIPP [Physician] - 03/23/23 9:15 am Mariah Addison DO [Primary Care Provider] - 03/30/23 7:45 am (Follow up scheduled on 03/30/23 @ 7:45 in [facility] [address] [place] [address]) Diet: Regular Diet Comment: resume your TPN at home and eat for pleasure Addtl Attending Provider Instructions: please complete you antibiotics at home thru 11/7 am, use good care of the site where the mediport was removed, gently clean with soap and water, you may use an antibiotic ointment and keep clean on covered till healed continue to use your home nutrition continue your home pain regimen Pending Studies at Discharge: No Stand-Alone Forms: My [facility] [employer], Smoking Cessation Medications and DC Order Prescriptions: New cefepime 2 gram recon soln 2 g IV Q8H Qty: 20 0RF Rx Instructions: last dose am of 03/24/23 Continued pyridoxine (vitamin B6) 50 mg tablet 50 mg PO QAM famotidine 40 mg tablet 20 mg PO BID Rx Instructions: 1/2 tablet dose hydrocortisone 10 mg tablet See Rx Instructions .ROUTE .COMPLEX Hold Instructions: Resume on 10/27/22. Please take hydrocortisone 25mg in the morning and 20mg in the afternoon until your thursday followup with endocrinology Rx Instructions: TAKE 15 MG EVERY MORNING AND 10 MG EVERY AFTERNOON dicyclomine 10 mg Capsule 20 mg PO Q6H PRN (Reason: Abdominal Pain) pantoprazole [Protonix] 40 mg tablet,delayed release (DR/EC) 40 mg PO QAM fexofenadine 180 mg Tablet 180 mg PO HS methocarbamol 750 mg Tablet 750 mg PO TID cholecalciferol (vitamin D3) [Vitamin D3] 25 mcg (1,000 unit) Capsule 50 mcg PO QAM duloxetine 60 mg capsule,delayed release(DR/EC) 60 mg PO QAM ondansetron 8 mg tablet,disintegrating 8 mg PO TID PRN (Reason: Nausea) fentanyl 75 mcg/hr patch 72 hour 1 patch transdermal Q72H Qty: 10 0RF lorazepam [Ativan] 2 mg/mL Solution 0.5 mg buccal QID PRN (Reason: Nausea) Qty: 100 0RF Rx Instructions: DIRECTED 0.5 MG (0.25 ML) oxycodone 5 mg/5 mL solution 5 mg PO Q4H PRN (Reason: pain) Qty: 250 0RF bethanechol chloride 25 mg Tablet 12.5 mg PO BID PRN (Reason: urinary retention) Qty: 20 0RF levothyroxine [Synthroid] 50 mcg tablet 50 mcg PO QAM calcium 250 mg Tablet 250 mg PO PM fludrocortisone 0.1 mg tablet 0.1 mg PO BID acetaminophen [Tylenol Extra Strength] 500 mg Tablet 1,000 mg PO Q6H PRN (Reason: Pain) Multivitamin Gummies 200 mcg Tablet,Chewable 2 tab PO HS turmeric 400 mg Capsule 400 mg PO HS Rx Instructions: Takces 1 cap daily coenzyme Q10 [CoQ-10] 100 mg capsule 100 mg PO PM Rx Instructions: Takes 1 tab daily UNKNOWN STRENGTH (DME) Enema Bottle Bottle See Rx Instructions .Route Qty: 72 0RF Rx Instructions: As directed gabapentin 250 mg/5 mL solution 900 mg PO TID Discharge Orders: Discharge Order (Routine); Ordered 03/17/23 Ordered By: Bhanu Means Admission Data Admit Date/Time: 03/10/23 17:26 Attending Provider: Bhanu Means Admit Provider: Dioni Kumar Primary Care Provider: Mariah Addison Other Providers: Jose De Jesus Hawkins ; Mendez Adler ; Jazmin Caceres ; Jemraine Morales ; Jessica Salgado ; Reynold Ellis ; Awilda Zelaya ; Cony Mujica ; Sherry Odonnell ; Fito Conner ; Mary Altamirano ; Talia Paz Other Interventions: Discharge Summary Assessment (RN) Last Done: 03/17/23 14:11 Coding Level of Care Code 54627 INP/OBS DISCH >30 MIN Diagnoses Central line infection T80.219A Visceral hyperalgesia R19.8
[2023-03-17] MEDS ORDERED: CENTRAL TPN IV SCH (21:00)
[2023-03-17] MEDS ORDERED: [UNRECOGNIZED DRUG - OTHER] IV SCH (21:00)
== END 2023-03-17 15:27 | disposition home or self-care (01) | DRG 314 ==
LOC: ED 13:45 → SUATTDRO 17:26 → 1E 17:26

== ENCOUNTER 2023-11-10 13:28 | Inpatient (IN) ==
--- NOTE | 2023-11-10 13:53 | Emergency Department Note ---
Impression & Plan Abdominal pain, Hypokalemia ED Provider Note NAME: CHRIS TALBOT AGE: 33 SEX: F : 1990 ARRIVES VIA: Ambulance INFORMANT: Patient, ED PROVIDER(S): Fausto Chapin DO CHIEF COMPLAINT: Abdominal pain HPI: The patient is a 33-year-old female who presented to the emergency department with abdominal pain. The patient's been noticing lower abdominal pain and difficulty urinating. She states that this is making her seizure as well as her abdominal pain as well as her POTS syndrome all acting up. She has a history of multiple abdominal surgeries in the past. The patient's noticed some output in her ostomy. She denies having any vomiting. She presented to the emergency department by ambulance with her mother who is giving most of the history. ROS: See above HPI for pertinent positives & negatives. A total of 10 systems reviewed and were otherwise negative. PAST MEDICAL HISTORY: See Below PAST SURGICAL HISTORY: See Below FAMILY HISTORY: See Below SOCIAL HISTORY: See Below HOME MEDICATIONS: See Below ALLERGIES: See Below VITALS: See Below PHYSICAL EXAMINATION: GENERAL: The patient is awake and alert. The patient is anxious.. EYES: The conjunctivae are clear. The pupils are round and reactive. EARS, NOSE, MOUTH AND THROAT: The nose is without any evidence of any deformity. NECK: The neck is nontender and supple. RESPIRATORY: Normal respiratory effort is noted there is no evidence of wheezing rhonchi or rales CARDIOVASCULAR: Regular rate and rhythm noted there no murmurs rubs or gallops normal S1 normal S2. GASTROINTESTINAL: The abdomen is soft and nondistended. There is diffuse tenderness to palpation but no guarding or rigidity. BACK: No midline tenderness or or step-off noted range of motion in flexion extension as well as rotation no signs of muscle spasm noted MUSCULOSKELETAL/EXTREMITIES: There is no evidence of gross deformity full range of motion is noted in the hips and shoulders. SKIN: There is no obvious evidence of any rash. There are no petechiae, pallor or cyanosis noted. NEUROLOGIC: Patient is awake alert and oriented x3 strength is symmetric patellar reflexes are 2+ bilaterally MEDICAL DECISION MAKING: The patient is a 33-year-old female who presented to the emergency department for abdominal pain. The patient has multiple medical issues in the past. She does have chronic abdominal pain. She has a history of SMA syndrome. She has a history of bowel resection. She has been having worsening pain as well as urinary retention and difficulty urinating. The patient did not have a postvoid residual on bladder scan. I discussed patient's laboratory and radiographic studies with her and her mother. She was treated based on her treatment protocol. Vital signs are reassuring. Abdominal exam was not consistent with acute surgical abdomen. Once she was treated with her protocol medication she still did not have significant relief so I discussed her condition with the on- call [facility] hospitalist. Triage Nursing notes reviewed. Prior medical records reviewed Vital Signs: reviewed and remarkable for no significant abnormalities Differential diagnosis: Etiologies such as appendicitis, diverticulitis, obstruction, inflammatory bowel disease, renal colic, PUD, biliary pathology, pancreatitis, mesenteric ischemia, aortic pathology, infections, genitourinary, UTI, perforated viscus, as well as others were entertained. ER treatment provided: See below Diagnostics interpreted by me: ECG: none Cardiac Monitoring: An order was placed for continuous cardiac monitoring. The monitor shows a rate of 92 bpm with sinus rhythm. Laboratory studies: As stated above and show below. Imaging studies: See below. Radiographic imaging was reviewed by myself Consultation(s): I discussed this case with Dr. Weldon who is on-call for the [facility]ist group. Past Med/Surg History Problem List (Updated 11/10/23 @ 17:08 by Fausto Chapin DO) Abdominal pain (Acute) Discharge planning issues DVT prophylaxis Methicillin susceptible Staphylococcus aureus infection Central line infection Pseudomonas aeruginosa infection Infection due to Port-A-Cath (Acute) Pain disorder Encounter for pre-operative examination Generalized abdominal pain (Acute) Visceral hyperalgesia Palliative care encounter Right ankle sprain (Acute) Encounter for care related to vascular access port Iron deficiency anemia Syncope Seizure-like activity Witnessed seizure-like activity (Acute) Hypokalemia Malnutrition Transaminitis B12 deficiency Folate deficiency Intestinal motility disorder (Chronic) Candidiasis of mouth and esophagus Severe protein-calorie malnutrition Abdominal pain, chronic, generalized (Chronic) Adrenal insufficiency On total parenteral nutrition (TPN) (Chronic) Acute kidney insufficiency Tachycardia (Acute) Acute dehydration (Acute) Epigastric abdominal pain (Acute) Chronic migraine without aura Hypokalemia Hypomagnesemia Hypokalemia Enteritis (Acute) Hypophosphatemia (Acute) Jejunal intussusception Sinus tachycardia Hypotension Secondary hyperparathyroidism Hypocalcemia Diarrhea (Acute) Hypophosphatemia (Acute) Anemia Gastroparesis Sphincter of Oddi spasm Fever Hypokalemia Vomiting (Acute) Urinary retention (Acute) UTI (urinary tract infection) (Acute) resolved Post-op pain (Acute) Head injury (Acute) Concussion (Acute) Bilious vomiting (Acute) Allergic reaction caused by a drug Allergic reaction Abnormal MRI, kidney (Acute) Acute right flank pain (Acute) Right flank pain (Acute) Bilateral flank pain (Acute) Appendicitis, acute (Acute 11/07/13) Asthma (Chronic) Hemorrhagic cystitis (Acute) hx Hypotension S/P cholecystectomy 2014 Chronic migraine (Chronic) Endometriosis has had 3 surgeries for this. Last surgery 2019 Diversion colitis Medical History Hx of Clostridium difficile infection 5 years ago, tx. 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 carroll, [facility] Spinal cord stimulator status trial implanted 03/02/23, in dr. ramírez's office>advised to bring remote Chronic, continuous use of opioids Difficult intravenous access Intractable pain Abdominal pain Elevated lipase Transaminitis Colitis Chronic malnutrition Gastrostomy tube in place Intussusception hx PICC (peripherally inserted central catheter) in place TPN Pancreatitis hx Sphincter of Oddi dysfunction DECREASED GI MOTILITY Uses feeding tube gastroparesis and decreased GI motility can not tolerate feeding and uses TPN Epigastric abdominal pain Dehydration "kind of always dehydrated" SMAS (superior mesenteric artery syndrome) History of SMAS Nausea Surgical History History of liver biopsy 2023 Hx of exploratory laparotomy History of esophagogastroduodenoscopy (EGD) Ileostomy status Hx of ileostomy Hx of colonoscopy during procedure perforated small bowel 10/27/2019 at [facility], subsequent repair of duodenal area. History of bowel resection Part of duodenum removed due to necrosis; done at [facility] 2019 History of removal of Port-a-Cath 10/13/[address] Geiger, [facility], due to bacteremia/sepsis.; "inserted and removed multiple times" History of hysterectomy 09/27/19 History of appendectomy History of vascular access device 2018; implanted and removed "several" times Family History Father Hyperlipidemia Other No significant family history Social History Smoking Status: Never smoker Second Hand Exposure: No; Do You Dip or Chew Tobacco: No; Hx Alcohol Use: No Hx Substance Use: No Preferred Language: Citizen Of [place] Communication Ability: Effective Visual Impairment: No Limitations Hearing Ability: Normal Pharmacy Technician Inpatient Required: No Beliefs That Will Affect Care: None marital status: Single Current Living Situation: Parent and Family Current Living Situation Comment: Patient lives at home with both parents current occupational status: unemployed current occupation: completed 4-year degree at [employer] How many Children do You have: 0 Feels Safe at Home: Yes Diet: regular Sexual Activity Comment: not sexually active Assistive Devices: Crutches and Wheelchair Allergies Allergies Allergy/AdvReac Type Severity Reaction Status Date / Time diphenhydramine Allergy Severe Anaphylaxis Verified 11/10/23 15:30 promethazine Allergy Severe hives, Verified 11/10/23 15:30 throat swelling adhesive Allergy Intermediate Redness of Verified 11/10/23 15:30 Skin amoxicillin Allergy Intermediate RASH Verified 11/10/23 15:30 azithromycin [From Zithromax] Allergy Intermediate RASH/VOMITI Verified 11/10/23 15:30 NG calcium Allergy Intermediate SEE COMMENT Verified 11/10/23 15:30 [From VIACTIV Multi-Vitamin] cefazolin Allergy Intermediate rash Verified 11/10/23 15:30 Cephalosporins Allergy Intermediate HIVES Verified 11/10/23 15:30 clavulanic acid Allergy Intermediate HIVES Verified 11/10/23 15:30 ferric carboxymaltose Allergy Intermediate Rash Verified 11/10/23 15:30 [From Injectafer] folic acid Allergy Intermediate SEE COMMENT Verified 11/10/23 15:30 [From VIACTIV Multi-Vitamin] iron [From Venofer] Allergy Intermediate Muscle Pain Verified 11/10/23 15:30 multivitamin with minerals Allergy Intermediate SEE COMMENT Verified 11/10/23 15:30 [From VIACTIV Multi-Vitamin] Penicillins Allergy Intermediate HIVES Verified 11/10/23 15:30 prochlorperazine Allergy Intermediate HIVES Verified 11/10/23 15:30 sulfamethoxazole Allergy Intermediate RASH Verified 11/10/23 15:30 sumatriptan Allergy Intermediate RASH Verified 11/10/23 15:30 trimethoprim Allergy Intermediate RASH Verified 11/10/23 15:30 metoclopramide AdvReac Severe anxiety/ Verified 11/10/23 15:30 jittery morphine AdvReac Severe Severe Verified 11/10/23 15:30 abdominal Pain, sphincter of oddi spasms erythromycin base AdvReac Intermediate GI SYMPTOMS Verified 11/10/23 15:30 citalopram [From Celexa] AdvReac Unknown CAN'T Verified 11/10/23 15:30 REMEMBER Home Meds Home Medications Medication Instructions Recorded Confirmed dicyclomine 10 mg capsule 20 mg PO Q6H PRN Abdominal Pain 03/07/18 11/10/23 pantoprazole 40 mg tablet,delayed 40 mg PO QAM 09/08/19 11/10/23 release (Protonix) famotidine 40 mg tablet 20 mg PO BID 11/28/19 11/10/23 hydrocortisone 10 mg tablet See Rx Instructions .Route .COMPLEX 02/07/20 11/10/23 fexofenadine 180 mg tablet 180 mg PO HS 10/09/20 11/10/23 fludrocortisone 0.1 mg tablet 0.1 mg PO BID 12/12/20 11/10/23 acetaminophen 500 mg tablet 1,000 mg PO Q6H PRN Pain 06/13/21 11/10/23 (Tylenol Extra Strength) multivitamin with minerals-folic 2 tab PO HS 06/13/21 11/10/23 acid 200 mcg chewable tablet (Multivitamin Gummies) turmeric 400 mg capsule 400 mg PO HS 06/13/21 11/10/23 cholecalciferol (vitamin D3) 25 50 mcg PO QAM 04/07/22 11/10/23 mcg (1,000 unit) capsule (Vitamin D3) duloxetine 60 mg capsule,delayed 60 mg PO QAM 04/07/22 11/10/23 release methocarbamol 750 mg tablet 750 mg PO TID 04/07/22 11/10/23 coenzyme Q10 100 mg capsule 100 mg PO PM 07/22/22 11/10/23 (CoQ-10) pyridoxine (vitamin B6) 50 mg 50 mg PO QAM 07/22/22 11/10/23 tablet ondansetron 8 mg disintegrating 8 mg PO TID PRN Nausea 10/06/22 11/10/23 tablet levothyroxine 50 mcg tablet 50 mcg PO QAM 03/04/23 11/10/23 (Synthroid) gabapentin 250 mg/5 mL oral 900 mg PO TID 03/10/23 11/10/23 solution oxycodone 20 mg/mL oral concentrate 20 mg PO QID PRN Pain 08/05/23 11/10/23 calcium carbonate 250 mg PO QPM 11/10/23 11/10/23 norethindrone (contraceptive) 0.35 0.35 mg PO QAM 11/10/23 11/10/23 mg tablet Previous Rx's Medication Instructions Recorded empty container (Enema Misc Bottle) #72 ea 01/16/22 fentanyl 75 mcg/hr transdermal 1 patch transdermal Q72H #10 ea 10/23/22 patch lorazepam 2 mg/mL injection 0.5 mg (0.25 mL) buccal QID PRN 12/04/22 solution (Ativan) Nausea #100 mL bethanechol chloride 25 mg tablet 12.5 mg (1/2 x 25 mg) PO BID PRN 12/05/22 urinary retention #20 tabs Results & Data (ED) Vital Signs Vital Signs - 24 hr 11/10/23 13:44 11/10/23 13:59 11/10/23 14:05 Temperature 37.3 C Temperature Source Oral Pulse Rate 109 H 105 H 88 Pulse Rate [Apical] Pulse Rhythm Regular Regular Pulse Strength Normal Respiratory Rate 20 16 Respiratory Effort / Characteristics Non-Labored Spontaneous Respiratory Depth Normal Respiratory Pattern Regular Blood Pressure [Left Arm] Blood Pressure Mean [Left Arm] Pulse Oximetry 96 95 Oxygen Delivery Method Room Air Room Air Sepsis Recent Fever Within 48 Hours No Sepsis New/Unexplained Change in Mental Status No Sepsis Action Taken by Nursing No Action Required End Tidal CO2 (18-54mmHg) 11/10/23 14:17 11/10/23 15:28 11/10/23 16:58 Temperature Temperature Source Pulse Rate Pulse Rate [Apical] 90 88 92 H Pulse Rhythm Pulse Strength Respiratory Rate 12 14 14 Respiratory Effort / Characteristics Respiratory Depth Respiratory Pattern Blood Pressure [Left Arm] 128/77 105/79 112/80 Blood Pressure Mean [Left Arm] 94 87 90 Pulse Oximetry 98 100 95 Oxygen Delivery Method Room Air Room Air Room Air Sepsis Recent Fever Within 48 Hours Sepsis New/Unexplained Change in Mental Status Sepsis Action Taken by Nursing End Tidal CO2 (18-54mmHg) 50 49 Home Medications Current Medication List: was personally reviewed by me Laboratory Data Attestation: I reviewed the patient's lab results. 11/10/23 13:41 11/10/23 13:41 Lab Results 11/10/23 11/10/23 11/10/23 Range/Units 13:41 14:46 18:05 WBC 6.78 (4.8-10.8) K/ul RBC 4.23 (4.20-5.40) M/uL Hgb 13.6 (12.0-16.0) g/dl Hct 39.4 (37.0-47.0) % MCV 93.1 (80.0-100.0) fL MCH 32.2 (25.0-34.0) pg MCHC 34.5 (32.0-36.0) g/dL RDW Std Deviation 42.1 (36.4-46.3) fL RDW Coeff of Tim 12.3 (11.5-14.5) % Plt Count 293 (130-400) K/uL MPV 10.0 (9.4-12.4) fL Immature Gran % (Auto) 0.1 % Neut % (Auto) 75.2 % Lymph % (Auto) 12.8 % Brewster % (Auto) 9.1 % Eos % (Auto) 2.2 % Baso % (Auto) 0.6 % Neut # (Auto) 5.09 (1.40-6.50) K/uL Lymph # (Auto) 0.87 L (1.20-3.40) K/uL Brewster # (Auto) 0.62 H (0.11-0.59) K/uL Eos # (Auto) 0.15 (0.00-0.50) K/uL Baso # (Auto) 0.04 (0.00-0.20) K/uL Immature Gran # (Auto) 0.01 (0.01-0.20) K/uL Sodium 140 (136-145) mmol/L Potassium 3.3 L (3.5-5.1) mmol/L Chloride 103 (98-107) mmol/L Carbon Dioxide 30 (21-32) mmol/L Anion Gap 7 (3-11) BUN 5 L (6-23) mg/dl Creatinine 0.70 (0.6-1.2) mg/dl Est Cr Clr Drug Dosing 109.0 ml/min Est GFR ( Amer) 133.8 ml/min Est GFR (Non-Af Amer) 115.5 ml/min BUN/Creatinine Ratio 7.1 L (10-20) Glucose 133 H (70-99(Fasting)) mg/dl Lactate 1.0 (0.4-2.0) mmol/L Calcium 8.7 (8.6-10.3) mg/dl Total Bilirubin 0.3 (0.2-1.0) mg/dl AST 17 (13-39) U/L ALT 10 (7-52) U/L Alkaline Phosphatase 64 (34-104) U/L Total Protein 6.4 (6.0-8.3) gm/dl Albumin 4.0 (3.4-5.0) gm/dl Globulin 2.4 L (2.5-4.0) gm/dl Albumin/Globulin Ratio 1.7 (0.9-2) Lipase 13 (11-82) U/L Urine Color Yellow Urine Appearance Clear (Clear) Urine pH 6.0 (4.5-7.5) Ur Specific Calera 1.011 (1.000-1.030) Urine Protein Negative (Negative) Urine Glucose (UA) Negative (Negative) Urine Ketones Negative (Negative) Urine Blood Negative (Negative) Urine Nitrite Negative (Negative) Urine Bilirubin Negative (Negative) Urine Urobilinogen Negative (Negative) Ur Leukocyte Esterase Negative (Negative) Administered Medications Discontinued Medications Sodium Chloride (Nss) 1,000 mls @ 999 mls/hr IV .Q1H1M STA Stop: 11/10/23 14:41 Last Infusion: 11/10/23 15:28 Dose: Infused Documented By: Admin: 11/10/23 13:58 Dose: 999 mls/hr Documented By: BONY Acetaminophen (Ofirmev) 1,000 mg in 100 mls @ 400 mls/hr IV NOW STA Stop: 11/10/23 13:55 Last Infusion: 11/10/23 14:50 Dose: Infused Documented By: Admin: 11/10/23 13:59 Dose: 400 mls/hr Documented By: BONY Ketamine HCl 6 mg/ Sodium (Chloride) 50.12 mls @ 300.72 mls/hr IV NOW ONE Stop: 11/10/23 13:42 Last Infusion: 11/10/23 14:23 Dose: Infused Documented By: Admin: 11/10/23 14:01 Dose: 300.7 mls/hr Documented By: BONY Potassium Chloride (K Larry / Wtr) 10 meq in 100 mls @ 100 mls/hr IV ONE ONE Stop: 11/10/23 15:23 Last Infusion: 11/10/23 16:17 Dose: Infused Documented By: Admin: 11/10/23 15:04 Dose: 100 mls/hr Documented By: JENNIFER Ketorolac Tromethamine (Ketorolac 30 Mg/Ml Vial) 30 mg IV NOW STA Stop: 11/10/23 13:42 Last Admin: 11/10/23 13:58 Dose: 30 mg Documented By: BONY Lorazepam (Lorazepam 1 Mg/1 Ml Syr Ed Inj Use) 0.5 mg IV ONE STA Stop: 11/10/23 14:54 Last Admin: 11/10/23 15:04 Dose: 0.5 mg Documented By: JENNIFER Ondansetron HCl (Ondansetron Inj 2 Mg/Ml 2 Ml Vial) 4 mg IV NOW STA Stop: 11/10/23 13:42 Last Admin: 11/10/23 13:59 Dose: 4 mg Documented By: BONY Oxycodone HCl (Oxycodone Hcl Ir 5 Mg Tab (Immediate Release)) 5 mg PO NOW STA Stop: 11/10/23 15:38 Last Admin: 11/10/23 15:44 Dose: 5 mg Documented By: JENNIFER Imaging Data Attestation: I personally reviewed and interpreted this imaging study as follows: My Impression: 1 view chest x-ray and KUB were obtained in the emergency department. My interpretation is no free air or bowel obstruction was obviously noted. Final report below Radiologist's Impression: Chest X-Ray 11/10/23 13:42 XR chest 1V not portable CLINICAL HISTORY: pain TECHNIQUE: Single frontal radiograph of the chest was obtained. Comparison: Comparison is made to chest radiograph 07/11/2022 FINDINGS: A port catheter is seen. The cardiomediastinal silhouette is normal. The lungs are clear. Previously noted right upper lung densities are not well seen. No evidence of pleural effusion or pneumothorax. IMPRESSION: No acute chest disease. ACT 112: Negative or not required by law. Electronically signed by: Tony Barnes M.D. 11/10/2023 3:00 PM KUB X-Ray 11/10/23 13:42 KUB CLINICAL HISTORY: Generalized abdominal pain. Nausea. FINDINGS: An AP, portable, supine abdominal radiograph is compared to study dated 03/17/2023 and correlated with abdominal CT dated 08/18/2023. Cholecystectomy clips are noted in the right upper quadrant, with additional clips seen in the abdomen and pelvis. A percutaneous gastrojejunostomy tube is in place. No bowel obstruction is seen. An ostomy projects over the right lower quadrant. No evidence of intraperitoneal free air is seen on this supine image. There are no abnormal abdominal calcifications. The bony structures are osteopenic and appear intact. IMPRESSION: No acute abnormality is identified. Electronically signed by: Kirk Burgos M.D. 11/10/2023 3:17 PM Discharge Plan Visit Data Chief Complaint: Abdominal Pain ED Provider: Fausto Chapin Discharge Problem: Abdominal pain, Hypokalemia Patient Disposition: Being Evaluated by Hospitalist Forms Stand Alone Forms: My [facility] Prescriptions Prescriptions: No Action pyridoxine (vitamin B6) 50 mg tablet 50 mg PO QAM famotidine 40 mg tablet 20 mg PO BID Rx Instructions: 1/2 tablet dose hydrocortisone 10 mg tablet See Rx Instructions .ROUTE .COMPLEX Hold Instructions: Resume on 10/27/22. Please take hydrocortisone 25mg in the morning and 20mg in the afternoon until your thursday followup with endocrinology Rx Instructions: TAKE 15 MG EVERY MORNING AND 10 MG EVERY AFTERNOON dicyclomine 10 mg Capsule 20 mg PO Q6H PRN (Reason: Abdominal Pain) pantoprazole [Protonix] 40 mg tablet,delayed release (DR/EC) 40 mg PO QAM fexofenadine 180 mg Tablet 180 mg PO HS methocarbamol 750 mg Tablet 750 mg PO TID cholecalciferol (vitamin D3) [Vitamin D3] 25 mcg (1,000 unit) Capsule 50 mcg PO QAM duloxetine 60 mg capsule,delayed release(DR/EC) 60 mg PO QAM ondansetron 8 mg tablet,disintegrating 8 mg PO TID PRN (Reason: Nausea) fentanyl 75 mcg/hr patch 72 hour 1 patch transdermal Q72H Qty: 10 0RF lorazepam [Ativan] 2 mg/mL Solution 0.5 mg buccal QID PRN (Reason: Nausea) Qty: 100 0RF Rx Instructions: DIRECTED 0.5 MG (0.25 ML) bethanechol chloride 25 mg Tablet 12.5 mg PO BID PRN (Reason: urinary retention) Qty: 20 0RF levothyroxine [Synthroid] 50 mcg tablet 50 mcg PO QAM fludrocortisone 0.1 mg tablet 0.1 mg PO BID acetaminophen [Tylenol Extra Strength] 500 mg Tablet 1,000 mg PO Q6H PRN (Reason: Pain) multivit with min-folic acid [Multivitamin Gummies] 200 mcg Tablet,Chewable 2 tab PO HS turmeric 400 mg Capsule 400 mg PO HS Rx Instructions: Takces 1 cap daily coenzyme Q10 [CoQ-10] 100 mg capsule 100 mg PO PM Rx Instructions: Takes 1 tab daily (DME) Enema Bottle Bottle See Rx Instructions .Route Qty: 72 0RF Rx Instructions: As directed gabapentin 250 mg/5 mL solution 900 mg PO TID calcium carbonate [Calcium 500] 500 mg calcium (1,250 mg) Tablet 250 mg PO QPM norethindrone (contraceptive) 0.35 mg tablet 0.35 mg PO QAM oxycodone [Oxyfast] 20 mg/mL Concentrate 20 mg PO QID PRN (Reason: Pain) Referrals Referrals: Mariah Addison DO [Primary Care Provider] - Discharge Problem: Abdominal pain Qualifiers: Abdominal location: lower abdomen, unspecified Qualified Code(s): R10.30 - Lower abdominal pain, unspecified
[2023-11-10 13:56] LABS: Basophils # (auto) 0.04 K/uL (0.00-0.20); Basophils % (auto) 0.6 %; Eosinophils # (auto) 0.15 K/uL (0.00-0.50); Eosinophils % (auto) 2.2 %; Hematocrit (blood only) 39.4 % (37.0-47.0); Hemoglobin 13.6 g/dl (12.0-16.0); Immature Granulocytes # (auto) 0.01 K/uL (0.01-0.20); Immature Granulocytes % (auto) 0.1 %; Lymphocytes # (auto) 0.87 K/uL (1.20-3.40); Lymphocytes % (auto) 12.8 %; Mean Corpuscular Hemoglobin 32.2 pg (25.0-34.0); Mean Corpuscular Hgb Conc 34.5 g/dL (32.0-36.0); Mean Corpuscular Volume 93.1 fL (80.0-100.0); Monocytes # (auto) 0.62 K/uL (0.11-0.59); Monocytes % (auto) 9.1 %; Neutrophils # (auto) 5.09 K/uL (1.40-6.50); Neutrophils % (auto) 75.2 %; Platelet Count 293 K/uL (130-400); RDW Coefficient of Variation 12.3 % (11.5-14.5); RDW Standard Deviation 42.1 fL (36.4-46.3); Red Blood Count 4.23 M/uL (4.20-5.40); White Blood Count 6.78 K/ul (4.8-10.8)
[2023-11-10] MEDS: KETOROLAC 30 MG/ML VIAL IV STA (13:58)
[2023-11-10] MEDS: SODIUM CHLORIDE 0.9% 1,000 ML IV STA (13:58)
[2023-11-10] MEDS: ACETAMINOPHEN 1,000 MG/100 ML VIAL IV STA (13:59)
[2023-11-10] MEDS: ONDANSETRON INJ 2 MG/ML 2 ML VIAL IV STA ×2 (13:59→19:57)
[2023-11-10] MEDS: SODIUM CHLORIDE 0.9% IV ONE (14:01)
[2023-11-10] MEDS: KETAMINE HCL IV ONE (14:01)
[2023-11-10 14:14] LABS: Albumin Globulin Ratio 1.7 (0.9-2); BUN Creatinine Ratio 7.1 (10-20); Bilirubin,Total 0.3 mg/dl (0.2-1.0); Calcium 8.7 mg/dl (8.6-10.3); Est GFR (African American) 133.8 ml/min; Est GFR (Non-African American) 115.5 ml/min; Globulin 2.4 gm/dl (2.5-4.0); Potassium 3.3 mmol/L (3.5-5.1); Total Protein 6.4 gm/dl (6.0-8.3)
--- NOTE | 2023-11-10 15:01 | XRay Report ---
XR chest 1V not portable CLINICAL HISTORY: pain TECHNIQUE: Single frontal radiograph of the chest was obtained. Comparison: Comparison is made to chest radiograph 07/11/2022 FINDINGS: A port catheter is seen. The cardiomediastinal silhouette is normal. The lungs are clear. Previously noted right upper lung densities are not well seen. No evidence of pleural effusion or pneumothorax. IMPRESSION: No acute chest disease. ACT 112: Negative or not required by law. Electronically signed by: Tony Barnes M.D. 11/10/2023 3:00 PM
[2023-11-10] MEDS: POTASSIUM CHLORIDE / WTR 10 MEQ/100 ML PLCT IV ONE (15:04)
[2023-11-10] MEDS: LORazepam 1 MG/1 ML SYR ED Inj Use IV STA (15:04)
--- NOTE | 2023-11-10 15:18 | XRay Report ---
KUB CLINICAL HISTORY: Generalized abdominal pain. Nausea. FINDINGS: An AP, portable, supine abdominal radiograph is compared to study dated 03/17/2023 and matti elated with abdominal CT dated 08/18/2023. Cholecystectomy clips are noted in the right upper quadrant, with additional clips seen in the abdomen and pelvis. A percutaneous gastrojejunostomy tube is in pl umm. No bowel obstruction is seen. An ostomy projects over the right lower quadrant. No evidence of i ntraperitoneal free air is seen on this supine image. There are no abnormal abdominal calcifications. The bony structures are osteopenic and appear intact. IMPRESSION: No acute abnormality is identified. Electronically signed by: Kirk Burgos M.D. 11/10/2023 3:17 PM
[2023-11-10] MEDS: oxyCODONE HCL IR 5 MG TAB (IMMEDIATE RELEASE) PO STA (15:44)
[2023-11-10 16:09] LABS: Appearance Urine Clear (Clear); Bilirubin Urine Negative (Negative); Blood Urine Negative (Negative); Color Urine Yellow; Glucose Urine UA Negative (Negative); Ketones Urine Negative (Negative); Leukocyte Esterase Urine Negative (Negative); Nitrite Urine Negative (Negative); Protein Urine Negative (Negative); Specific Gravity Urine 1.011 (1.000-1.030); Urobilinogen Urine Negative (Negative)
--- NOTE | 2023-11-10 19:05 | History & Physical Report ---
Date of Service November 10, 2023 Assessment & Plan (1) Abdominal pain: Plan: Assessment: 1. Abdominal pain//visceral hyperalgesia- acute on chronic. History of SMA syndrome. Patient received 30 mg of IV ketamine in the ER half a milligram of IV Ativan in the ER oral oxycodone in the ER 5 mg, Zofran in the ER 4 mg. Along with IV fluids. Pain management will be consulted we have paged pain management on-call, Dr. Crump. At the time of this dictation we are awaiting a callback. 2. History of SMA syndrome with chronic pain syndrome. 3. History of intermittent urinary retention. Today she thought she may be having urinary retention and her urinalysis is negative. Her bladder scan was around 280 cc and approximately an hour later she voided 500 cc therefore does look like she is voiding appropriately. 4. History of seizure-like activity in the past none currently. 5. History of protein calorie malnutrition she is on chronic TPN infusions at home. She does pleasure eat as well. 6. History of adrenal insufficiency continue home Hydrocort tab for regimen. Patient has no history of adrenal crisis at this time. 7. Mild hypokalemia. Replace and recheck. 8. History of endometrioma pelvic ultrasounds been ordered. 9. Chronic PEG tube in place but uses chronic TPN. Plan: As discussed above. D5 LR for overnight. Nutrition consultation for TPN management. Pain management consultation. Will admit to the ICU given the fact she had ketamine in the ER. Please refer to orders for further planning. History of Present Illness Chief Complaint: Abdominal pain. Primary Care Provider: Mariah Addison DO Is a 33-year-old female who is well-known to this medical facility multiple prac titioners for her chronic intermittent abdominal pain mostly related to a history of a superior mesenteric syndrome/SMA syndrome. This patient's been admitted multiple times for severe intractable abdominal pain requiring a protocol developed locally with IV ketamine oral oxycodone and IV Ativan. She presented today with increasing abdominal pain and increasing signs and symptoms of urinary retention. In the ER she bladder scan initially for proximally 280 cc and approximately 1 hour later she voided for 500 cc of urine. She received 30 mg of IV ketamine in the ER she received a liter of normal saline she received IV Zofran she received oral oxycodone and 10 mill equivalents potassium chloride. No abdominal imaging was performed with the exception of a KUB. This was unremarkable. Patient and his mother also report recent history of surgery in June 2023 at [facility] for revision of SMA surgery in the past as well as lysis of adhesions as well as a drainage of an endometrioma. The patient does follow with gynecology for this endometrioma and they have been doing serial ultrasounds to monitor per the patient and family. At this time we admitted the patient to the ICU due to the fact she had a significant amount of IV ketamine. We will obtain consultation with pain management we have paged Dr. Crump and are awaiting a callback at the time of this dictation. In addition we will do a pelvic ultrasound. I did do a stat lactic acid level which was reassuring at 1.1 therefore we will not do a CT given the amount of CTs this patient's had in her life currently and given my current abdominal exam as described above. The patient does state that her abdominal pain is significantly improved since presentation to the ER with the treatment provided Allergies Allergy/AdvReac Type Severity Reaction Status Date / Time diphenhydramine Allergy Severe Anaphylaxis Verified 11/10/23 15:30 promethazine Allergy Severe hives, Verified 11/10/23 15:30 throat swelling adhesive Allergy Intermediate Redness of Verified 11/10/23 15:30 Skin amoxicillin Allergy Intermediate RASH Verified 11/10/23 15:30 azithromycin [From Zithromax] Allergy Intermediate RASH/VOMITI Verified 11/10/23 15:30 NG calcium Allergy Intermediate SEE COMMENT Verified 11/10/23 15:30 [From VIACTIV Multi-Vitamin] cefazolin Allergy Intermediate rash Verified 11/10/23 15:30 Cephalosporins Allergy Intermediate HIVES Verified 11/10/23 15:30 clavulanic acid Allergy Intermediate HIVES Verified 11/10/23 15:30 ferric carboxymaltose Allergy Intermediate Rash Verified 11/10/23 15:30 [From Injectafer] folic acid Allergy Intermediate SEE COMMENT Verified 11/10/23 15:30 [From VIACTIV Multi-Vitamin] iron [From Venofer] Allergy Intermediate Muscle Pain Verified 11/10/23 15:30 multivitamin with minerals Allergy Intermediate SEE COMMENT Verified 11/10/23 15:30 [From VIACTIV Multi-Vitamin] Penicillins Allergy Intermediate HIVES Verified 11/10/23 15:30 prochlorperazine Allergy Intermediate HIVES Verified 11/10/23 15:30 sulfamethoxazole Allergy Intermediate RASH Verified 11/10/23 15:30 sumatriptan Allergy Intermediate RASH Verified 11/10/23 15:30 trimethoprim Allergy Intermediate RASH Verified 11/10/23 15:30 metoclopramide AdvReac Severe anxiety/ Verified 11/10/23 15:30 jittery morphine AdvReac Severe Severe Verified 11/10/23 15:30 abdominal Pain, sphincter of oddi spasms erythromycin base AdvReac Intermediate GI SYMPTOMS Verified 11/10/23 15:30 citalopram [From Celexa] AdvReac Unknown CAN'T Verified 11/10/23 15:30 REMEMBER Home Medications Medication Instructions Recorded Confirmed Type dicyclomine 10 mg capsule 20 mg PO Q6H PRN Abdominal Pain 03/07/18 11/10/23 History pantoprazole 40 mg tablet,delayed 40 mg PO QAM 09/08/19 11/10/23 History release (Protonix) famotidine 40 mg tablet 20 mg PO BID 11/28/19 11/10/23 History hydrocortisone 10 mg tablet See Rx Instructions .Route .COMPLEX 02/07/20 11/10/23 History fexofenadine 180 mg tablet 180 mg PO HS 10/09/20 11/10/23 History fludrocortisone 0.1 mg tablet 0.1 mg PO BID 12/12/20 11/10/23 History acetaminophen 500 mg tablet 1,000 mg PO Q6H PRN Pain 06/13/21 11/10/23 History (Tylenol Extra Strength) multivitamin with minerals-folic 2 tab PO HS 06/13/21 11/10/23 History acid 200 mcg chewable tablet (Multivitamin Gummies) turmeric 400 mg capsule 400 mg PO HS 06/13/21 11/10/23 History empty container (Enema Misc Bottle) #72 ea 01/16/22 11/03/23 Rx cholecalciferol (vitamin D3) 25 50 mcg PO QAM 04/07/22 11/10/23 History mcg (1,000 unit) capsule (Vitamin D3) duloxetine 60 mg capsule,delayed 60 mg PO QAM 04/07/22 11/10/23 History release methocarbamol 750 mg tablet 750 mg PO TID 04/07/22 11/10/23 History coenzyme Q10 100 mg capsule 100 mg PO PM 07/22/22 11/10/23 History (CoQ-10) pyridoxine (vitamin B6) 50 mg 50 mg PO QAM 07/22/22 11/10/23 History tablet ondansetron 8 mg disintegrating 8 mg PO TID PRN Nausea 10/06/22 11/10/23 History tablet fentanyl 75 mcg/hr transdermal 1 patch transdermal Q72H #10 ea 10/23/22 11/10/23 Rx patch lorazepam 2 mg/mL injection 0.5 mg (0.25 mL) buccal QID PRN 12/04/22 11/10/23 Rx solution (Ativan) Nausea #100 mL bethanechol chloride 25 mg tablet 12.5 mg (1/2 x 25 mg) PO BID PRN 12/05/22 11/10/23 Rx urinary retention #20 tabs levothyroxine 50 mcg tablet 50 mcg PO QAM 03/04/23 11/10/23 History (Synthroid) gabapentin 250 mg/5 mL oral 900 mg PO TID 03/10/23 11/10/23 History solution oxycodone 20 mg/mL oral concentrate 20 mg PO QID PRN Pain 08/05/23 11/10/23 History calcium carbonate 250 mg PO QPM 11/10/23 11/10/23 History norethindrone (contraceptive) 0.35 0.35 mg PO QAM 11/10/23 11/10/23 History mg tablet Past Med/Surg History Problem List (Updated 11/10/23 @ 17:08 by Fausto Chapin DO) Abdominal pain (Acute) Discharge planning issues DVT prophylaxis Methicillin susceptible Staphylococcus aureus infection Central line infection Pseudomonas aeruginosa infection Infection due to Port-A-Cath (Acute) Pain disorder Encounter for pre-operative examination Generalized abdominal pain (Acute) Visceral hyperalgesia Palliative care encounter Right ankle sprain (Acute) Encounter for care related to vascular access port Iron deficiency anemia Syncope Seizure-like activity Witnessed seizure-like activity (Acute) Hypokalemia Malnutrition Transaminitis B12 deficiency Folate deficiency Intestinal motility disorder (Chronic) Candidiasis of mouth and esophagus Severe protein-calorie malnutrition Abdominal pain, chronic, generalized (Chronic) Adrenal insufficiency On total parenteral nutrition (TPN) (Chronic) Acute kidney insufficiency Tachycardia (Acute) Acute dehydration (Acute) Epigastric abdominal pain (Acute) Chronic migraine without aura Hypokalemia Hypomagnesemia Hypokalemia Enteritis (Acute) Hypophosphatemia (Acute) Jejunal intussusception Sinus tachycardia Hypotension Secondary hyperparathyroidism Hypocalcemia Diarrhea (Acute) Hypophosphatemia (Acute) Anemia Gastroparesis Sphincter of Oddi spasm Fever Hypokalemia Vomiting (Acute) Urinary retention (Acute) UTI (urinary tract infection) (Acute) resolved Post-op pain (Acute) Head injury (Acute) Concussion (Acute) Bilious vomiting (Acute) Allergic reaction caused by a drug Allergic reaction Abnormal MRI, kidney (Acute) Acute right flank pain (Acute) Right flank pain (Acute) Bilateral flank pain (Acute) Appendicitis, acute (Acute 11/07/13) Asthma (Chronic) Hemorrhagic cystitis (Acute) hx Hypotension S/P cholecystectomy 2014 Chronic migraine (Chronic) Endometriosis has had 3 surgeries for this. Last surgery 2019 Diversion colitis Medical History Hx of Clostridium difficile infection 5 years ago, tx. 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 carroll, [facility] Spinal cord stimulator status trial implanted 03/02/23, in dr. crump's office>advised to bring remote Chronic, continuous use of opioids Difficult intravenous access Intractable pain Abdominal pain Elevated lipase Transaminitis Colitis Chronic malnutrition Gastrostomy tube in place Intussusception hx PICC (peripherally inserted central catheter) in place TPN Pancreatitis hx Sphincter of Oddi dysfunction DECREASED GI MOTILITY Uses feeding tube gastroparesis and decreased GI motility can not tolerate feeding and uses TPN Epigastric abdominal pain Dehydration "kind of always dehydrated" SMAS (superior mesenteric artery syndrome) History of SMAS Nausea Surgical History History of liver biopsy 2023 Hx of exploratory laparotomy History of esophagogastroduodenoscopy (EGD) Ileostomy status Hx of ileostomy Hx of colonoscopy during procedure perforated small bowel 10/27/2019 at [facility], subsequent repair of duodenal area. History of bowel resection Part of duodenum removed due to necrosis; done at [facility] 2019 History of removal of Port-a-Cath 10/13/[address] Geiger, [facility], due to bacteremia/sepsis.; "inserted and removed multiple times" History of hysterectomy 09/27/19 History of appendectomy History of vascular access device 2018; implanted and removed "several" times Family History Father Hyperlipidemia Other No significant family history Social History Smoking Status: Never smoker Second Hand Exposure: No; Do You Dip or Chew Tobacco: No; Hx Alcohol Use: No Hx Substance Use: No Preferred Language: Scottish Communication Ability: Effective Visual Impairment: No Limitations Hearing Ability: Normal Um Rn Required: No Beliefs That Will Affect Care: None marital status: Single Current Living Situation: Parent and Family Current Living Situation Comment: Patient lives at home with both parents current occupational status: unemployed current occupation: completed 4-year degree at [employer] How many Children do You have: 0 Feels Safe at Home: Yes Diet: regular Sexual Activity Comment: not sexually active Assistive Devices: Crutches and Wheelchair Review of Systems Review of Systems: A 10 point review of system was obtained and unless otherwise stated here or in history of present illness are negative and noncontributory to chief complaint. Physical Exam Physical Exam: In General: In general is a 33-year-old female who is alert and oriented x 3 at the time of my exam she is accompanied by her mother at the time of my exam. She has granted permission to be in the room during my interview and exam. The patient does not appear to be in any amount of significant distress. HEENT: Normocephalic atraumatic pupils are equal round and reactive to light bilaterally. No scleral icterus no conjunctival injection external auditory canals are patent septum is in the midline nose is without discharge oral mucosa is pink and moist without lesion. NECK: Supple no rigidity no lymphadenopathy no thyromegaly no carotid bruits no JVD no masses. HEART: Regular rate and rhythm I do not appreciate any ectopy or rub. No murmur. LUNGS: Clear to auscultation bilaterally and anteriorly with no evidence of adventitious sounds/wheezes rales or rhonchi. ABDOMEN: Grossly abnormal abdominal exam. Patient has a PEG tube in place surrounding area and insertion site intact clean and dry. No discharge no surrounding erythema. In addition she has a ileostomy in the right lower quadr ant. The ostomy looks healthy on inspection. Her abdomen is flat, it is soft, patient has no real tenderness with palpation at this time of her abdomen, she states it is much improved with the current treatment. EXTREMITIES: Intact, no peripheral cyanosis, clubbing or edema. Strength is 5 out of 5 in extremities x4, no pathological reflexes. NEUROLOGICAL: Cranial nerves II through XII are grossly intact with no focal deficit elicited upon examination. No tremor. Results & Data Results & Data Vital Signs (Past 12 Hours) Vital Signs Temp Pulse Pulse Resp BP Pulse Ox O2 Del Method 11/10/23 16:58 92 H 14 112/80 95 Room Air 11/10/23 15:28 88 14 105/79 100 Room Air 11/10/23 14:17 90 12 128/77 98 Room Air 11/10/23 14:05 88 16 95 Room Air 11/10/23 13:59 105 H 11/10/23 13:44 37.3 C 109 H 20 96 Room Air Code Status & VTE Plan Code Status Full code per patient I personally discussed with her. VTE Prophylaxis Plan VTE Prophylaxis will be ordered: Yes PG Care Time/CCT Total # of Minutes Spent Total Time Spent with Patient: Total time spent is greater than 50% in coordination of care (as documented) at patient's floor/unit and/or counseling patient: Coding Level of Care Code 06728 INT INP/OBS CARE 3/75MIN Diagnoses Abdominal pain R10.30 Abdominal location: lower abdomen, unspecified (1) Abdominal pain Abdominal location: lower abdomen, unspecified Qualified Code(s): R10.30 - Lower abdominal pain, unspecified
[2023-11-10] MEDS: D5W AND LACTATED RINGERS 1,000 ML IV SCH (19:12)
[2023-11-10] MEDS ORDERED: ACETAMINOPHEN 500 MG TAB PO PRN (19:43)
[2023-11-10] MEDS: KETAMINE HCL 50MG/ML VIAL 10 MG in SODIUM CHLORIDE 0.9% 50 ML IV ONE (19:48)
[2023-11-10] MEDS: ONDANSETRON INJ 2 MG/ML 2 ML VIAL ONE (19:58)
[2023-11-10] MEDS ORDERED: fentaNYL 75 MCG/HR TDSY TD SCH (21:00)
[2023-11-10] MEDS: fentaNYL 50 MCG/HR TDSY TD SCH (21:46)
[2023-11-10] MEDS: BETHANECHOL CHL 25 MG TAB PO PRN (21:53)
[2023-11-10] MEDS: FEXOFENADINE HCL 180 MG TAB PO SCH (21:53)
[2023-11-10] MEDS: ONDANSETRON 8MG OD TAB PO PRN (21:54)
[2023-11-10] MEDS: FLUDROCORTISONE ACETATE 0.1 MG TAB PO SCH (21:54)
[2023-11-10] MEDS: FAMOTIDINE 20 MG TAB PO SCH (21:54)
[2023-11-10] MEDS: METHOCARBAMOL 750 MG TABLET PO SCH (21:54)
[2023-11-10] MEDS: GABAPENTIN 250 MG/5 ML 470 ML BTL PO SCH (21:56)
[2023-11-10] MEDS: HYDROCORTISONE 10 MG TAB PO SCH (22:06)
[2023-11-10] MEDS: DICYCLOMINE HCL 10 MG CAP PO PRN (22:44)
[2023-11-10] MEDS: ONDANSETRON INJ 2 MG/ML 2 ML VIAL IV PRN (22:45)
[2023-11-10] MEDS: ICU Protocol for HYPERglycemia SCH (22:56)
[2023-11-10] MEDS: oxyCODONE INTENSOL 20 MG/1 ML UDP PO PRN (22:56)
--- OUTSIDE RECORDS SUMMARY | 2023-11-10 23:44 | External Medical Summary | Summary of Care ---
Author Name Unknown Organization [facility] Address [address] [place] [address] Phone [phone] Care Team Providers Care Motor Pool Clerk Name Role Phone Mariah Addison Primary Care Provider Encounter Details Date Type Department Care Team (Late st Contact Info) Description 11/05/2023 Orders Only Nutrition & Weight Management, [place] [address] [place] [address] Jennifer Rust MD [address] [place] [address] Allergies Active Allergy Reactions Criticality Noted Date Comments Amoxicillin-Pot Clavulanate 03/16/20 09 Rash Cefazolin Sodium 03/16/2009 rash Diphenhydramine Anaphylaxis High 10/13/2017 Other reaction(s): Itching IV FORM Metoclopramide High 10/27/2019 Other reaction(s): Anxiety Promethazine Hcl Hives High 12/17/2016 Throat swelled shut . Sulfa Antibiotics Rash 05/22/2011 documented as of this encounter (statuses as of 11/05/2023) Medications Medication Sig Dispensed Refills Start Date End Date Status MULTI-VITAMIN PO TABS one tablet daily Active ZYRTEC ALLERGY 10 MG PO TABSIndications:A llergic rhinitis, cause unspecified,Recur rent sinusitis,Cough 1 TABLET DAILY as needed for allergies 30 Tab 0 10/18/2012 Active ALBUTEROL SULFATE HFA 108 (90 BASE) MCG/ACT IN AERSIndications:I ntermittent asthma with reliever use up to twice per week 2 puffs every 4hr for cough, wheeze, SOB and prior exercise 1 Inhaler 4 03/14/2014 Active dicyclomine (BENTYL) 10 MG Capsule Take 10 mg by mouth as needed. Active ondansetron (ZOFRAN) 4 MG Tablet Take 4 mg by mouth. As needed Active triamcinolone acetonide (ARISTOCORT) 0.1 % cream As needed 11/29/2015 Active pantoprazole (PROTONIX) 20 MG TBEC 1 daily 06/02/2016 Active trimethobenzamide (TIGAN) 300 MG Capsule As needed 05/26/2016 Active Azelastine HCl (ASTELIN) 0.1 % nasal sprayIndications: Recurrent sinusitis Administer 2 Sprays into nostril 2 times a day. 3 Bottle 3 02/11/2017 Active hyoscyamine (LEVSIN) 0.125 MG SL tablet As needed 04/16/2017 Active K Phos Bullock-Sod Phos Di & Bullock (M-HASO-RJHWBIS) 155-852-130 MG TABS Take 250 mg by mouth. 06/14/2019 Active LORAzepam (ATIVAN) 0.5 MG Tablet Take 0.5 mg by mouth every 6 hours as needed. Active ertapenem (INVANZ) 1 g IVPB Administer 1 g intravenously daily. Active Fludrocortisone Acetate 0.1 MG Oral Tablet (Florinef) Take two daily 10/27/2022 Active oxyCODONE HCl 5 MG/5ML Oral Solution (Roxicodone) TAKE 5ML EVERY 4 HOURS NEEDED FOR PAIN FOR 14 DAYS 12/11/2022 Active Levothyroxine Sodium 50 MCG Oral Tablet (Levoxyl) one pill each day (at least 30 min prior to breakfast or other meds) 90 Tablet 3 06/29/2023 Active Hydrocortisone 10 MG Oral Tablet (Cortef) Take 15mg am and 10mg pm, plus up to 20 extra pills/month for illness 285 Tablet 3 06/29/2023 Active documented as of this encounter (statuses as of 11/05/2023) Active Problems Problem Noted Date Diagnosed Date Adrenal insufficiency 10/27/2022 Generalized intestinal dysmotility 07/03/2022 Intussusception of jejunum 07/03/2022 Severe protein-calorie malnutrition 07/03/2022 Iron deficiency 01/03/2019 Osteopenia of multiple sites 06/23/2017 Allergic rhinitis 03/14/2014 Intermittent asthma with reliever use up to twic e per week 10/18/2012 Cough 10/18/2012 Recurrent sinusitis 10/18/2012 Acute sphenoidal sinusitis 05/22/2011 Acute maxillary sinusitis 05/22/2011 Acute frontal sinusitis 05/22/2011 Acute sinusitis treated with antibiotics in the past 60 days 05/22/2011 Nasal turbinate hypertrophy 05/22/2011 Migraine 03/16/2009 SMAS (superior mesenteric artery syndrome) documented as of this encounter (statuses as of 11/05/2023) Resolved Problems Problem Noted Date Diagnosed Date Resolved Date Allergic rhinitis, cause unspecified 10/18/2012 03/14/2014 Rhinitis due to pollen 05/22/201110/18 NO SIGNIFICANT MED HX 2012 documented as of this encounter (statuses as of 11/05/2023) Immunizations Name Administration Dates Next Due Seasonal Influenza, Quadrivalent, No Preserve, I M 04/14/2015 Seasonal Influenza, Split, IIV3, With Preserve, Inj 03/14/2014 documented as of this encounter Social History Tobacco Use Types Packs/Day Years Used Date Smoking Tobacco: Never Smokeless Tobacco: Never Comments:non-smoking househo ld Alcohol Use Standard Drinks/Week Comments No 0 (1 standard drink = 0.6 oz pur e alcohol) Hunger Vital Sign Answer Date Recorded Within the past 12 months, y ou worried that your food would run out before you got the money to buy more. Never true 06/08/19 24 Within the past 12 months, t he food you bought just didn't last and you didn't have money to get more. Never true 06/08/2023 Childcare Answer Date Recorded Do you feel overwhelmed with taking care of a child, family member or friend? No 06/08/2023 Does your family need help f inding childcare? (Household - for ages 0-17 years) Not on file 06/08/2023 Clothing Answer Date Recorded Have you been unable to get clothing when it was really needed? No 06/08/2023 Is your family able to get c lothes or diapers when needed? (Household - for ages 0-17 years) Not on file 06/08/2023 Personal Safety Answer Date Recorded Do you feel unsafe or have concerns for your saf ety? No 06/08/2023 Do you have concerns for you r family's safety? (Household - for ages 0-17 years) Not on file 06/08/2023 Utilities Answer Date Recorded Do you have trouble paying y our heating, water, or electric bill? No 06/08/2023 Is your family able to pay t he heat, water, or electric bill? (Household - for ages 0-17 years) Not on file 06/08/2023 Does your family have access to good internet? (Household - for ages 0-17 years) Not on file 06/08/2023 Employment Status Answer Date Recorded Are you unemployed or without regular income? Ye s 06/08/2023 Does the household have a re gular source of income? (Household - for ages 0-17 years) Not on file 06/08/2023 Social Connections Answer Date Recorded How often do you feel lonely or isolated from th ose around you? Never 06/08/2023 Financial Resource Strain Answer Date R ecorded Do you have any trouble payi ng for your medications, or do you think you might in the future? No 06/08/2023 Does your family have troubl e paying for medicine? (Household - for ages 0-17 years) Not on file 06/08/2023 Transportation Needs Answer Date Record ed READ ONLY Do you have troubl e getting a ride to medical visits or work? Never True 06/08/2023 Does your family have a hard time getting a ride to doctors visits? (Household - for ages 0-17 years) Not on file 06/08/2023 Has lack of transportation k ept you from medical appointments, meetings, work, or from getting things needed for daily living? Check all that apply. (Adult - for ages 18 years and over) Not on file 06/08/2023 Do you (or your family) have trouble finding or paying for a ride (transportation)? (Household - for ages 0-17 years) Not on file 06/08/2023 Housing Stability Answer Date Recorded Do you currently live in a s helter or have no steady place to sleep at night? No 06/08/2023 READ ONLY Do you think you a re at risk of becoming homeless? No 06/08/2023 Does your family worry about paying for your home or becoming homeless? (Household - for ages 0-17 years) Not on file 0 06/08/2023 Are you homeless or worried that you might be in the future? (Adult - for ages 18 years and over) Not on file Are you (or your family) ashwini eless or worried that you might be in the future? (Household - for ages 0-17 years) Not on file Food Insecurity Answer Date Recorded Do you need food for this week? No 06/08/2023 Are you able to get enough f ood for your family? (Household - for ages 0-17 years) Not on file 06/08/2023 Does your family need food t his week? (Household - for ages 0-17 years) Not on file 06/08/2023 Do you always have enough fo od for your family? (Household - for ages 0-17 years) Not on file 06/08/2023 Sex and Gender Information Value Date Recorded Sex Assigned at Female 10/27/2022 1:27 PM EDT Gender Identity Female 10/27/2022 1:27 PM EDT Sexual Orientation Straight 10/27/2022 1: 27 PM EDT Job Start Date Occupation Industry Not on file Not on file Not on file documented as of this encounter Plan of Treatment Health Maintenance Due Date Last Done Comments DTaP,Tdap,and Td Vaccines (6 - Tdap) 01/21/2003 01/23/1997, 08/15/1993, 1992, Additional history exists Depression Screening 2004 Hepatitis C Screening 01/21/2010 COVID-19 Vaccine (4 - 2022-2 4 season) 2023 02/27/2021, 02/27/2021, 07/11/2020, Additional history exists Influenza Vaccine (FLU shot) (Season Ended) 2024 04/14/2015, 04/05/2015, 03/21/2014, Additional history exists TSH 05/19/2024 05/19/2023, 03/04/2023 Hepatitis B Completed 1992, 07/17, 1992, Additional history exists MENINGOCOCCAL (MENACTRA/MENVEO) Completed 9 GARDASIL-HPV IMMUNIZATION SERIES Completed 07/18/2010, 03/27/2010, 12/20/2009 Pneumococcal Vaccine: Pediat rics (0 to 5 Years) and At-Risk Patients (6 to 64 Years) Completed 01/09/2022 HIV Screening Completed 05/26/2023, 09/17/2021 documented as of this encounter Medical Devices Not on filedocumented as of this encounter Procedures Procedure Name Priority Date/Time Associated Diagnosis Comments CHEMISTRY-OUTSIDE Routine 11/03/2023 documented in this encounter Results * (ABNORMAL) CHEMISTRY-OUTSIDE (11/03/2023) Not all results display below - see scan for full detail OUTSIDE LAB (SEE SCANNED REPORT) Comment:"SCAN INCLUDES" - CM P, URIC, PHOS, MG, DEVEN, LIPASE, CBC/DIFF, PLT CREATININE-OUTSID E LAB 0.67 0.6 - 1.2 MG/DL OUTSIDE LAB (SEE SCANNED REPORT) EGFR-OUTSIDE LAB 117.1 NO RANGE ML/MIN/1.7 3M2 OUTSIDE LAB (SEE SCANNED REPORT) POTASSIUM-OUTSIDE LAB 3.3(A) 3.5 - 5.1 MMOL/L OUTSIDE LAB (SEE SCANNED REPORT) GLUCOSE-OUTSIDE LAB 146(A) 70 - 99 MG/DL OUTSIDE LAB (SEE SCANNED REPORT) HOURS FASTING OUTSID E LAB (SEE SCANNED REPORT) TRIGLYCERIDES-OUT SIDE LAB OUTSIDE LAB (SEE SCANNED REPORT) CHOLESTEROL-OUTSI DE LAB OUTSIDE LAB (SEE SCANNED REPORT) HDL-OUTSIDE LAB OUTS [facility] (SEE SCANNED REPORT) CHOL/HDL RATIO-OUTSIDE LAB OUTSIDE [facility] (SEE SCANNED REPORT) LDL (CALCULATED)-OUTS [facility] OUTSIDE LAB (SEE SCANNED REPORT) LDL (DIRECT MEASURE)-OUTSIDE LAB OUTSIDE LAB (SEE SCANNED REPORT) HEMOGLOBIN, E9O-DWHPCAI LAB OUTSIDE LAB (SEE SCANNED REPORT) PHOSPHORUS-OUTSID E LAB 3.6 2.5 - 4.9 MG/DL OUTSIDE LAB (SEE SCANNED REPORT) PTH-OUTSIDE LAB OUTS [facility] (SEE SCANNED REPORT) MICROALBUMIN RATIO-OUTSIDE LAB OUTSIDE [facility] (SEE SCANNED REPORT) PROTEIN, UA-OUTSIDE LAB OUTSIDE LAB (SEE SCANNED REPORT) HGB 12.6 12.0 - 16.0 G/DL OUTSIDE LAB (SEE SCANNED REPORT) 11/03/2023 Dlishad Sarmiento MD LABORATORY OUTSIDE LAB (SEE SCANNED REPORT) documented in this encounter Care Teams Motor Pool Clerk Relationship Specialty Start Date End Date Mariah Addison DO [address] [facility] [address] [place] [address] [place] [address], [place] [address] PCP - General Family Medicine 03/14/14 documented as of this encounter
--- OUTSIDE RECORDS SUMMARY | 2023-11-10 23:44 | External Medical Summary | Continuity of Care Document ---
Author Name Unknown Organization [facility] [address] [address] Address [address] [place], [place] [id number] Care Team Providers Care Forming Tube Selector Name Role Phone Mak Addisonen Donnie Primary Care Physician [phone] Encounter [facility] [id number] Date(s): 11/05/23 - 11/05/23 [place] [address], [address] [place] [address] [phone] Encounter Diagnosis POTS (postural orthostatic tachycardia syndrome)(Discharge Diagnosis) - 11/05/23 Discharge Disposition: Home or Self Care Attending Physician: YULISSA Boss Sarah A Allergies, Adverse Reactions, Alerts Substance Criticality Severity Reaction Reaction Severity Status seasonal Active erythromycin GI symptoms Activ e Phenergan hives Active amoxicillin rash Active penicillin hives Active trimethoprim rash Active cephalosporins hives Activ e sulfamethoxazole rash Act homar diphenhydrAMINE with IV only severe anxiety tachycardia Active metoclopramide jittery anxiety Active morphine abdominal pain Activ e multivitamin unknown Active prochlorperazine hives Act homar promethazine throat swelling hives Active scopolamine skin irritation Ac tive sulfa drugs nausea Active Celexa nausea/vomiting Acti ve Imitrex fatigue Active Ancef Rash Active ceFAZolin rash Active Injectafer 1 injectafer Active Augmentin rash Active Compazine Unknown reaction Act homar Reglan adverse reactio n, shaking, jittery, skin crawling Active Venofer rash Active SUMAtriptan rash Active 1lowers her phos level Assessment and Plan Extracted from: Title:Cardiology Office Visit Note Author:YULISSA Paz rd, Sarah A Date:11/05/23 IMPRESSION: 1. Orthostatic hypotension. 2. Possible POTS. 3. Normal EKG. 4. Adrenal insufficiency. 5. Pseudoseizures 6. Parenteral nutrition secondary to multiple abdominal surgeries including colectomy and awaiting small intestine transplant. She has had difficulty with hypokalemia and her GI providers wondered if her Florinef could be changed to a different agent given that it can exacerbate hypokalemia. I would recommend Mestinon which she has been on in the past for gut motility. I'm hesitant to use midodrine as it causes supine hypertension and she is laying down much of her day. She will let me know via the portal if ok with her GI providers. Immunizations Given and Recorded Vaccine Date Status Refusal Reason influenza virus vaccine, inactivated 05/06/23 Give n influenza virus vaccine, inactivated 1 03/31/22 Gi genesis influenza virus vaccine, inactivated 02/22/21 Give n influenza virus vaccine, inactivated 04/18/20 Give n influenza virus vaccine, inactivated 02/10/19 Give n influenza virus vaccine, inactivated 03/29/18 Give n influenza virus vaccine, inactivated 04/30/17 Give n influenza virus vaccine, inactivated 03/21/14 Cory rded influenza virus vaccine, inactivated 03/10/12 Give n pneumococcal 20-valent conjugate vaccine 01/09/22 Recorded tetanus/diphtheria/pertuss, acel (Tdap) 01/09/22 R ecorded SARS-CoV-2 (COVID-19) mRNA BNT-162b2 vax 2 02/27/21 Given SARS-CoV-2 (COVID-19) mRNA BNT-162b2 vax 07/11/20 Recorded SARS-CoV-2 (COVID-19) mRNA BNT-162b2 vax 06/20/20 Recorded human papillomavirus vaccine 07/18/10 Recorded human papillomavirus vaccine 03/27/10 Recorded human papillomavirus vaccine 12/20/09 Recorded meningococcal conjugate vaccine 02/12/09 Recorded hepatitis A pediatric vaccine 10/12/07 Recorded hepatitis A pediatric vaccine 03/31/07 Recorded varicella virus vaccine 03/31/07 Recorded varicella virus vaccine 03/24/95 Recorded tetanus toxoids-diphtheria, Td (Adult) 09/11/04 Re corded diphtheria/tetanus/pertuss, acel (DTaP) 01/23/97 R ecorded diphtheria/tetanus/pertuss, acel (DTaP) 08/15/93 R ecorded diphtheria/tetanus/pertuss, acel (DTaP) 92 R ecorded diphtheria/tetanus/pertuss, acel (DTaP) 92 R ecorded poliovirus vaccine, inactivated 01/23/97 Recorded poliovirus vaccine, inactivated 92 Recorded poliovirus vaccine, inactivated 92 Recorded measles/mumps/rubella virus vaccine 01/23/97 Recor ded measles/mumps/rubella virus vaccine 05/23/93 Recor ded haemophilus b conjugate (HbOC) vaccine 08/15/93 Re corded haemophilus b conjugate (HbOC) vaccine 92 Re corded haemophilus b conjugate (HbOC) vaccine 92 Re corded haemophilus b conjugate (HbOC) vaccine 92 Re corded hepatitis B pediatric vaccine 92 Recorded hepatitis B pediatric vaccine 92 Recorded hepatitis B pediatric vaccine 92 Recorded 1Result Comment: Lorena Alejandre MA 2Early/Late Reason: Early/Late Reason: Other : Order placed prior to appt. Medications acetaminophen 500 mg oral tablet Start: 12/08/22 8:49:00 AM EDT, 2 tab, PO, q6h, PRN: as needed for pain Start Date: 12/08/22 Status: Ordered Albuterol (Eqv-ProAir HFA) 90 mcg/inh inhalation aerosol Start: 10/26/23 4:15:00 PM EDT, 2 puff, inhaled, q6h, Disp# 1 kit, Refills: 11, Pharmacy: [id number] Start Date: 10/26/23 Status: Ordered Rylee 180 mg oral tablet Start: 11/21/21 3:44:00 PM EDT, 1 tab, PO, qPM, Start Date: 11/21/21 Status: Ordered Bentyl 10 mg oral capsule Start: 02/09/23 1:26:00 PM EDT, See Instructions, Disp# 240 cap, Refills: 11, 1-2 po q6h prn cramps,Pharmacy: [id number] Start Date: 02/09/23 Status: Ordered bethanechol 25 mg oral tablet Start: 10/15/23 12:03:00 PM EDT, See Instructions, Disp# 45 tab, Refills: 1, 1/2 tab po BID, Pharmacy: [id number] Start Date: 10/15/23 Status: Ordered calcium citrate Start: 01/13/22 11:25:00 AM EDT Start Date: 01/13/22 Status: Ordered cholecalciferol 25 mcg (1000 intl units) oral capsule Start: 12/08/22 8:49:00 AM EDT, 1 cap, PO, Daily Start Date: 12/08/22 Status: Ordered Cipro 500 mg oral tablet Start: 09/08/23 12:30:00 PM EDT, 1 tab, PO, q12h, Disp# 6 tab, Refills: 0, Pharmacy: [id number] Start Date: 09/08/23 Stop Date: 09/11/23 Status: Ordered CoQ10 100 mg oral capsule Start: 11/21/21 3:46:00 PM EDT Start Date: 11/21/21 Status: Ordered Cymbalta 60 mg oral delayed release capsule Start: 04/07/23 12:59:00 PM EST, 1 cap, PO, Daily, Disp# 30 cap, Refills: 11, Pharmacy: [id number] Start Date: 04/07/23 Status: Ordered famotidine 40 mg oral tablet Start: 02/09/23 1:27:00 PM EDT, See Instructions, Disp# 90 tab, Refills: 3, TAKE 1/2 TABLET BY MOUTHTWICE A DAY, Pharmacy: [id number] Start Date: 02/09/23 Status: Ordered fentaNYL 50 mcg/hr transdermal film, extended release Start: 10/26/23 4:15:00 PM EDT, 1 patch, topical, q72h, Disp# 10 patch, Refills: 0, Pharmacy: [id number] Start Date: 10/26/23 Status: Ordered Florinef Acetate 0.1 mg oral tablet Start: 11/05/23 2:15:00 PM EDT, 1 tab, PO, bid, Disp# 180 tab, Refills: 3, Pharmacy: [id number] Start Date: 11/05/23 Status: Ordered gabapentin 250 mg/5 mL oral solution Start: 12/22/22 10:00:00 AM EDT, 9 mL, PO, tid, Disp# 810 mL, Refills: 11, Pharmacy: [id number] Start Date: 12/22/22 Stop Date: 12/17/23 Status: Ordered Glucagon Emergency Kit for Low Blood Sugar 1 mg injection Start: 03/11/21 10:48:00 AM EDT, 0.5 mg =, IM, ONCE, Disp# 1 kit, Refills: 0, Pharmacy: [id number] Start Date: 03/11/21 Status: Ordered hydrocortisone Start: 08/26/22 3:24:00 PM EDT, See Instructions, 15 q am and 10 mg pm Start Date: 08/26/22 Status: Ordered hyoscyamine 0.125 mg sublingual tablet Start: 05/06/23 10:59:00 AM EST, 1 tab, PO, q4h, Disp# 180 tab, Refills: 11, PRN: constipation, Pharmacy: [id number] Start Date: 05/06/23 Status: Ordered levothyroxine 50 mcg (0.05 mg) oral tablet Start: 12/08/22 8:50:00 AM EDT, 1 tab, PO, Daily Start Date: 12/08/22 Status: Ordered LORazepam 2 mg/mL oral concentrate Start: 10/26/23 4:14:00 PM EDT, 0.5 mL, PO, qid, Disp# 100 mL, Refills: 0, prn, Note to Pharmacy: PDMP verified, Pharmacy: [id number] Start Date: 10/26/23 Status: Ordered multivitamin Start: 11/21/21 3:47:00 PM EDT, 1 tab, PO, Daily Start Date: 11/21/21 Status: Ordered normal saline infusion Start: 05/14/17 3:13:00 PM EST, normal saline infusion, 1 liter 3days/week Start Date: 05/14/17 Status: Ordered oxyCODONE 5 mg/5 mL oral solution Start: 10/15/23 12:25:00 PM EDT, 5 mg =, PO, q4h, Disp# 840 mL, Refills: 0, PRN: as needed for pain,Pharmacy: [id number] Start Date: 10/15/23 Status: Ordered Protonix 40 mg oral delayed release tablet Start: 04/22/23 3:22:00 PM EST, 1 tab, PO, Daily, Disp# 90 tab, Refills: 3, Pharmacy: [id number] Start Date: 04/22/23 Status: Ordered pyridoxine 50 mg oral tablet Start: 12/08/22 8:48:00 AM EDT, 1 tab, PO, Daily Start Date: 12/08/22 Status: Ordered Robaxin-750 oral tablet Start: 09/08/23 12:31:00 PM EDT, 2 tab, PO, tid, Disp# 180 tab, Refills: 3, prn, Pharmacy: [id number] Start Date: 09/08/23 Status: Ordered turmeric Start: 11/21/21 3:47:00 PM EDT, See Instructions, 400 mg Start Date: 11/21/21 Status: Ordered Vitamin C 500 mg oral tablet Start: 11/21/21 3:46:00 PM EDT Start Date: 11/21/21 Status: Ordered Zofran ODT 8 mg oral tablet, disintegrating Start: 09/16/22 8:26:00 AM EDT, 1 tab, PO, tid, Disp# 270 tab, Refills: 3, PRN: as needed for nausea/vomiting, Pharmacy: [facility] Start Date: 09/16/22 Status: Ordered Mental Status 11/05/23 Barriers to Learning one year None evide nt Mandatory Health Literacy Documentation Yes Health Literacy Communication Barriers N ever Primary Language Djiboutian Problem List Condition Confirmation Course Effective Dates Status H ealth Status Informant Abdominal pain Confirmed Active Acne Confirmed 02/23/18 Active Adrenal insufficiency Confirmed Active Anemia Confirmed Active Chronic abdominal pain Confirmed Active Chronic pain Confirmed Active Clonus Confirmed Active Iron disorder Confirmed Active Urinary disorder Confirmed Active Psychiatric pseudoseizure Confirmed Active Endometriosis Confirmed Active Enteritis Confirmed Active On total parenteral nutrition (TPN) Confirmed Active Gastroparesis Confirmed Active Lateral pain of right hip Confirmed Active S/P colectomy Confirmed Active Hypokalemia Confirmed Active Low phosphate levels Confirmed Active Hypothyroidism Confirmed 02/23/[address] Confirmed Active Blood infection Confirmed Active Right ankle injury Confirmed Active Anemia, iron deficiency Confirmed Active Lymphadenopathy Confirmed Active Asthma, mild intermittent Confirmed Active Nausea Confirmed Active Osteopenia Confirmed Active Proctalgia fugax Confirmed Active History of infusaport central venous catheter insertion Confirmed Active POTS (postural orthostatic tachycardia syndrome) Confirmed Active Blood per rectum Confirmed Active Seasonal allergies Confirmed Active Muscle spasm Confirmed Active Speech disorder Confirmed Active Superior mesenteric artery syndrome Confirmed Active Surgical wound present Confirmed Active Malnutrition Confirmed Active Vitamin D deficiency Confirmed Active Diagnosis Diagnosis Type Effective Dates Health Status Clinical Service Informant POTS (postural orthostatic tachycardia syndrome) Discharge Diagnosis 11/05/23 Non-Specified Procedures Procedure Date Related Diagnosis Body Site Status Celiac plexus block 11/25/22 Compl eted Stoma 1 06/17/[address] of abdomen and pelvis 2 05/05/[address] of abdomen and pelvis 3 06/16/21 Completed KUB X-ray 4 03/13/21 Completed Feeding tube 5 01/2021 Completed Chest X-ray 6 12/12/20 Completed X-ray of abdomen 7 12/12/20 Comple jeffrey Procedure--XR upper GI 8 10/22/[address] of abdomen and pelvis wit h contrast 9 10/19/20 Completed Loop ileostomy 09/05/20 Completed US abdominal scan 10 02/07/20 Comp leted US scan of female genital tract 11 02/07/20 Completed Insertion of tunneled centra l venous catheter using fluoroscopic guidance 12 12/12/19 Completed Chest X-ray 13 10/11/[address] of abdomen 14 10/11/19 Complete d Port- A- Cath removal 15 10/11/19 Completed KUB X-ray 16 10/04/[address] of abdomen and pelvis 17 09/08/19 Completed X-ray of chest and abdomen 18 09/08/19 Completed MRCP - Magnetic resonance cholangiopancreatography 19 07/13/19 Comp leted Push Endoscopy 06/2019 Completed MRI - of brain w/o contrast 20 04/20/19 Completed Ultrasound scan of neck 21 12/03/18 Completed COLONOSCOPY AND BIOPSY 01/08/18 Co mpleted Ultrasound 22 10/01/17 Completed X-ray of abdomen 23 07/22/17 Compl eted Feeding tube, device 06/12/17 Comp leted Procedure, Feeding tube change [address] of abdomen and pelvis 25 05/05/17 Completed robotic operative laparoscopy 03/19/17 Completed Port Placement 12/2016 Completed HIDA scan 26 11/10/16 Completed KUB X-ray 09/01/16 Completed Ultrasound--mesenteric duplex 27 03/24/16 Completed Abdominal X-ray normal 28 03/22/16 Completed Upper GI endoscopy 29, 30 02/13/16 Completed Endoscopy,upper GI 01/08/[address] of Brain 31 10/10/15 Completed scan of the brain without iv contrast 10/10/15 Completed Gastric emptying study 32 09/26/15 Completed nuclear gastric emptying study 09/26/15 Completed Small bowel study 33 09/21/15 Comp leted Chest and Abdomen XRAY 34 08/08/15 Completed SMA surgery, Laparoscopic re lease of the ligament of Treitz, lysis of adhesions. 08/06/15 Completed Small bowel series--follow through 35 07/02/15 Completed Imaging 36, 37 06/29/15 Completed KUB X-ray 38 06/29/[address] of abdomen and pelvis 39, 40 06/28/15 Completed Imaging 41, 42 06/24/15 Completed Colonoscopy 05/25/15 Completed Colonoscopy 2016 Completed Cholecystectomy 43 04/05/15 Comple jeffrey Upper GI endoscopy 44 04/04/15 Com pleted Laparoscopy 45 02/07/15 Completed FNA - Fine needle aspiration of breast 46 06/16/14 Completed laparotomy for ENDOMET. 2014 C ompleted Appendectomy 11/10/13 Completed right breast lump excision 47 11/2011 Completed Repair 48 10/28/11 Completed Right Wrist Surgery Repair 49 2007 Completed HIDA scan 50 Completed Tonsillectomy and adenoidectomy Completed 1Ex lap, DUANE, revision of stoma 2Impression: 1. Slight improvement in the mild thickening and adjacent fat stranding at the distal stomach. 2. No evidence for bowel obstruction. 3. Trace bilateral pleural effusions. 4. A gastrojejunostomy tube appears in good position. 3impression: 1. Right lower quadrant ileostomy with no evidence for bowel loop dilatation or obstruction. However, there is mild mucosal thickening of small bowel loops which can bee seen with gastroenteritis 2 Gastrostomy tube is also in place 3. No other evidence for acute inta-abdominal pelvic abnormality 4. Additional nonacute findings as delineated above see scanned report 4No evidence for a bowel obstruction 5replaced at [facility] 6IMPRESSION: 1. No acute pulmonary process 7IMPRESSION: 1. Nonobstructed bowel gas pattern. 8Jejunal intussusceptions caused by J-tube 9Impression: A gastrojejunostomy tube is in place and there is postoperative change from double barrel ostomy in the right lower quadrant. An intussusception of small bowel is again seen in the proximal jejunum around the jejunostomy tube. This is similar to the 10/09/2020 examination. There is no bowel obstruction. A small volume of nonspecific free fluid is seen in the cul-de-sac. 10No right lower quadrant abdominal wall hernia identified 11Prior hysterectomy. No significant abnormality within the pelvis. 12[facility] 13impression: 1. no acute processes of the chest 2. nonobstructive bowel gas pattern 3. gastrojejunostomy tube again terminates within the duodenum 14impression: 1 status post hysterectomy. Mild thickening of the vaginal morris with a trace amount of fluid withing pablo vagina. this is nonspecific and could be due to the recent postoperative change. an infectious process cannot be excluded on the basis of imaging alone. 2. gastrostomy tube terminaes in the second portion of duodenum 3. mild thickening of the gastric antrum, unchanged. 4. prior cholecystectomy and appendectomy 15Removal of tunneled Port-A Cath, left upper chest wall 16[facility] Impression: 1. No evidence for bowel obstruction 2. Gastrojejunostomy tube terminates in the duodenum 17impression: 1.appropiately positioned gastro e unostomy tube 2. no bowel obstruction or pneumoperitoneum 3. multiple air and fluid-filled loops of large and small bowel are suggestive of enteritis with diarrheal illness. Additionally, there is wall thickening of the distal stomach suggestive of concomitany gastritis. 4. prior appendectomy and cholecystectomy 18impression: 1. apparent ill-defined bibasilar densities are auggestive of probable summation density 2. non obstructive bowel gas pattern without pneumoperitonuem 3. gastro e unostomy tube redomemonstrated 191) Cholecystectomy. No biliary or pancreatic ductal dilation or choledocholithiiasis. 2) Trace free fluid of the upper abdomen. 3) Gastrojejunal tube redemonstrated. 20IMPRESSION; No acute intracranial abnormality. Normal study. No change from prior exam 21No cervical lymphadenopathy identified. 22RENAL US IMPRESSION: Normal renal US 23Impression: No evidence of bowel obstruction. No evidemce of free air. 24Feeding tube change 25Impression: Decreased aorta-SMA distance and narrowing of the proimal left renal vein raising concern for persistence of SMA syndrome. Correlation with Ct scan prior to sugical repair might be helpful. Please note: These findings may be exaggerated on routine scans performed during the inspiratory phase. Prominent cervix. Could represent cervicitis but correlation with clinical exam and pap smear recommended. 261) CCK-stimulated hepatobiliary scan, postivie for sphincter of Oddi dysfucntion. 2) Totla sphincter of Oddi dysfunction score= 5. 27Normal study 28Nonobstructed abdominal bowel gas pattern noting moderate constipation 29no significant pathology that requires further endoscopic evaluation 30await path 31[facility] Impression: 1. No acute intracranial abnormality 32Findings are consistent with normal gastric emptying for solids 33Impression: No abnormal findings. 34No acute pulmonary process No evidence for bowel obstruction Small to moderate pneumoperitoneum. This could be related to the pt's history of recent surgery 351) There is significantly delayed transit time through the small bowel with retained enteric contrast in the stomach at 3 hours. The appearance is nonspecific and seen and could in the setting of gastroparesis 2) The duodenum appears normal in caliber and configuration. Note that superior mesenteric artery syndrome is not assessed georgi small bowel follow-through. 3) The small bowel mucosal pattern is normal. There is no fluoroscopic evidence of acitve Crohn's disease. 36Contrast throughout nondilated colon. 37KUB 38Moderate residual contrast within the colon from the prior CT. Therefore, a small bowel folow-through was not performed at this time. 39Addendum: Study was reviewed with Dr. Velasco. Note is made of narrowing of the aortomesenteric angle and aortomesenteric distance. There also appears to be some compression of the transverse duodenum. 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 40Status post cholecystectomy No definite abnormal findings although one might question some slight small bowel bowel wall thickening-secondary to lack of distention versus mild nonspecific enteritis. Please correlate clinically Trace pelvic fluid possibly physiologic Appendix not visualized but no inflammatory changes evident in the right lower quadrant 41abomen 2 view w/pa chest RTN 42Normal study 43biliary dyskinesia 44Normal esophagus Normal stomach Normal examined duodenum No specimens collected 45skyla iud insertion 46benign simple cyst of right breast. Benign type fluid was obtained and discarded. : candice 48Graham patch repair 49[facility]: 1. CCK-stimulated hepatobiliary scan, positive for sphincter of Oddi dysfunction 2. Total sphincter of Oddi dysfunction = 5 3 Social History Social History Type Response Smoking Status Never smoked cigaret rich Sex Female Cardiology Outpatient Note * YULISSA Boss Sarah A: PERFORM, MODIFY, MODIFY Event Display: Cardiology Outpt Note Authored Date: [id number] Primary Care Provider DO Addison Kristen M Chief Complaint Follow up- LOC and fall 10/07/23 no er visit History of Present Illness Ms. Garcia presents for follow up of POTS. She was identified by her name and . She initiated this visit. She is at home. I am in the office in a closed exam room. She was advised that this is a billable visit and she agreed to the visit. She has had furtherhospitalizations since her previous visit to our clinic including a 7 hour revision of her SMA surgery in [place] revision of her stoma ([facility]). In the fall she had an episode of sepsis due to her central line. She has pseudoseizures associated with pain. She was having up to 10 a day prior to her abdominal surgery. In September she had episode of her typical POTS symptoms while climbing steps and fainted. She hit her hip and since then has been having more frequent seizures. She had one today and so presents via telehealth as she is feeling very wiped out. She can't tolerate tube feeds but still has a feeding tube. She can eat orally but ends up having to drain it from her G tube. She continues to getnutrition from TPN. Review of Systems All other systems reviewed and negative except as discussed in the HPI Physical Exam Physical Examination General: Alert and oriented, No acute distress. Respiratory: Lungs are clear to auscultation, Respirations are non-labored. Cardiovascular: Normal rate, Regular rhythm, No murmur, No edema, Integumentary: Warm, Dry, [place] Neurologic: Alert, Oriented. Cognition and Speech: Speech clear and coherent. Psychiatric: Cooperative, Appropriate mood & affect. Assessment/Plan IMPRESSION: 1. Orthostatic hypotension. 2. Possible POTS. 3. Normal EKG. 4. Adrenal insufficiency. 5. Pseudoseizures 6. Parenteral nutrition secondary to multiple abdominal surgeries including colectomy and awaiting small intestine transplant. She has had difficulty with hypokalemia and her GI providers wondered if her Florinef could be changed to a different agent given that it can exacerbate hypokalemia. I would recommend Mestinon which she has been on in the past for gut motility. I'm hesitant to use midodrine as it causes supine hypertension and she is laying down much of her day. She will let me know via the portal if ok with her GI providers. Problem List/Past Medical History Ongoing Abdominal pain Acne Adrenal insufficiency Anemia Anemia, iron deficiency Asthma, mild intermittent Blood infection Blood per rectum Chronic abdominal pain Chronic pain Clonus Drainage from gastrostomy tube site| Status: Inactive Endometriosis Enteritis Gastroparesis History of infusaport central venous catheter insertion Hypokalemia Hypothyroidism Ileostomy in place Iron disorder Lateral pain of right hip Low phosphate levels Lymphadenopathy Malnutrition Muscle spasm Nausea On total parenteral nutrition (TPN) Osteopenia POTS (postural orthostatic tachycardia syndrome) Proctalgia fugax Psychiatric pseudoseizure Right ankle injury S/P colectomy Seasonal allergies Speech disorder Superior mesenteric artery syndrome Surgical wound present Urinary disorder Vitamin D deficiency Resolved Acalculous cholecystitis Acne Acne ACTH deficiency Allergic reaction ALLERGIC RHINITIS Anesthesia complication Back pain Breast cyst C. difficile colitis Cellulitis Chronic constipation Contact dermatitis Drug reaction Episode of shaking Family history of skin cancer Flank pain Gastritis Hematuria, gross IBS (irritable bowel syndrome) Intussusception Irregular periods Jejunostomy tube leak Jejunostomy tube site pain Kidney disorder Orthostatic hypotension Pancreatitis Pelvic floor weakness Persistent cough Rash Recurrent abdominal pain Rib pain Right flank pain Right shoulder injury Routine general medical examination at health care facility RUQ abdominal pain SMAS (superior mesenteric artery syndrome) Steroid acne Surgical wound dehiscence Syncope Tonsils and adenoids Uncontrollable vomiting Uses feeding tube Vaginal bleeding Vomiting Weight disorder Weight loss Wound drainage Wrist injury Wrist pain Procedure/Surgical History Celiac plexus block| Service Date: 11/25/2022Stoma| Service Date: 3CT of abdomen and pelvis| Service Date: 2CT of abdomen and pelvis| Service Date: 06/16/2021KUB X-ray| Service Date: 03/13/2021Feeding tube| Service Date: 01/2021X-ray of abdomen| Service Date: 12/12/2020hest X-ray| Service Date: 1Procedure--XR upper GI| Service Date: 10/22/2020T of abdomen and pelvis with contrast| Service Date: 1Loop ileostomy| Service Date:09/05/2020US abdominal scan| Service Date: 02/07/2020US scan of female genital tract| ServiceDate: 02/07/2020Insertion of tunneled central venous catheter using fluoroscopic guidance| Service Date: 12/12/2019CT of abdomen| Service Date: 10/11/2019Chest X-ray| Service Date: 10/11/2019Port- A- Cath removal| Service Date: 10/11/2019KUB X-ray| Service Date: 10/04/2019CT of abdomen and pelvis| Service Date: 09/08/2019X-ray of chest and abdomen| Service Date: 09/08/2019MRCP - Magnetic resonance cholangiopancreatography| Service Date: 07/13/2019Push Endoscopy| Service Date: 06/2019MRI - of brain w/o contrast| Service Date: 04/20/2019Ultrasound scan of neck| Service Date: 12/03/2018COLONOSCOPY AND BIOPSY| Service Date: 01/08/2018Ultrasound| Service Date: 10/01/2017X-ray of abdomen| Service Date: 07/22/2017Feeding tube, device| Service Date: 06/12/2017Procedure, Feeding tube change| Service Date: 2017CT of abdomen and pelvis| Service Date: 05/05/2017robotic operative laparoscopy| Service Date: 03/19/2017Port Placement| Service Date: 12/2016HIDA scan| Service Date: 11/10/2016KUB X-ray| Service Date: 09/01/2016Ultrasound--mesenteric duplex| Service Date: 03/24/2016Abdominal X-ray normal| Service Date: 03/22/2016Upper GI endoscopy| Service Date: 02/13/2016Endoscopy,upper GI| Service Date: 01/08/2016CT of Brain| Service Date: 10/10/2015scan of the brain without iv contrast| Service Date: 10/10/2015Gastric emptying study| Service Date: 09/26/2015nuclear gastric emptying study| Service Date: 09/26/2015Small bowel study| Service Date: 09/21/2015Chest and Abdomen XRAY| Service Date: 08/08/2015SMA surgery, Laparoscopic release of the ligament of Treitz, lysis of adhesions.| Service Date: 08/06/2015[facility] bowel series--follow through| Service Date: 07/02/2015KUB X-ray| Service Date: 06/29/2015Imaging| Service Date: 06/29/2015CT of abdomen and pelvis| Service Date: 06/28/2015Imaging| Service Date: 06/24/2015Colonoscopy| Service Date: 05/25/2015Colonoscopy| Service Date: 2015Cholecystectomy| Service Date: 04/05/2015Upper GI endoscopy| Service Date: 04/04/2015Laparoscopy| Service Date: 02/07/2015FNA - Fine needle aspiration of breast| Service Date: 06/16/2014laparotomy for ENDOMET.| Service Date: ppendectomy| Service Date: 11/10/2013right breast lump excision| Service Date: 11/2011Repair| Service Date: 10/28/2011Right Wrist Surgery Repair| Service Date: 2008Tonsillectomy and adenoidectomyHIDA scan Medications acetaminophen(acetaminophen 500 mg oral tablet), 1000 mg= 2 tab, PO, q6h, PRN albuterol(Albuterol (Eqv-ProAir HFA) 90 mcg/inh inhalation aerosol), 2 puff, inhaled, q6h, 11 refills ascorbic acid(Vitamin C 500 mg oral tablet) bethanechol(bethanechol 25 mg oral tablet), See Instructions, 1 refills calcium citrate cholecalciferol(cholecalciferol 25 mcg (1000 intl units) oral capsule), 25 mcg= 1 cap, PO, Daily ciprofloxacin(Cipro 500 mg oral tablet), 500 mg= 1 tab, PO, q12h dicyclomine(Bentyl 10 mg oral capsule), See Instructions, 11 refills DULoxetine(Cymbalta 60 mg oral delayed release capsule), 60 mg= 1 cap, PO, Daily, 11 refills famotidine(famotidine 40 mg oral tablet), See Instructions, 3 refills fentaNYL(fentaNYL 50 mcg/hr transdermal film, extended release), 1 patch, topical, q72h fexofenadine(Rylee 180 mg oral tablet), 180 mg= 1 tab, PO, qPM fludrocortisone(Florinef Acetate 0.1 mg oral tablet), 0.1 mg= 1 tab, PO, bid, 3 refills gabapentin(gabapentin 250 mg/5 mL oral solution), 450 mg= 9 mL, PO, tid, 11 refills glucagon(Glucagon Emergency Kit for Low Blood Sugar 1 mg injection), 0.5 mg, IM, ONCE hydrocortisone, See Instructions hyoscyamine(hyoscyamine 0.125 mg sublingual tablet), 0.125 mg= 1 tab, PO, q4h, PRN, 11 refills levothyroxine(levothyroxine 50 mcg (0.05 mg) oral tablet), 50 mcg= 1 tab, PO, Daily LORazepam(LORazepam 2 mg/mL oral concentrate), 1 mg= 0.5 mL, PO, qid methocarbamol(Robaxin-750 oral tablet), 1500 mg= 2 tab, PO, tid, 3 refills multivitamin, 1 tab, PO, Daily ondansetron(Zofran ODT 8 mg oral tablet, disintegrating), 8 mg= 1 tab, PO, tid, PRN, 3 refills oxyCODONE(oxyCODONE 5 mg/5 mL oral solution), 5 mg, PO, q4h, PRN pantoprazole(Protonix 40 mg oral delayed release tablet), 40 mg= 1 tab, PO, Daily, 3 refills pyridoxine(pyridoxine 50 mg oral tablet), 50 mg= 1 tab, PO, Daily turmeric, See Instructions ubiquinone(CoQ10 100 mg oral capsule) unlisted medication(normal saline infusion) Allergies AncefRash Augmentinrash Celexanausea/vomiting CompazineUnknown reaction Imitrexfatigue Injectaferinjectafer Phenerganhives Reglanadverse reaction, shaking, jittery, skin crawling SUMAtriptanrash Venoferrash amoxicillinrash ceFAZolinrash cephalosporinshives diphenhydrAMINEwith IV only, severe anxiety, tachycardia erythromycinGI symptoms metoclopramidejittery, anxiety morphineabdominal pain multivitaminunknown penicillinhives prochlorperazinehives promethazinethroat swelling, hives scopolamineskin irritation seasonal sulfa drugsnausea sulfamethoxazolerash trimethoprimrash Social History Smoking Status Never smoked cigarettes Alcohol - Denies Alcohol Use Employment/School - Low Risk Status:Unemployed Exercise - Regular exercise Exercise type:Walking Tobacco - Denies Tobacco Use Use:Never smoker Family History Brain cancer: Paternal Aunt. Cancer: Negative: Unknown. Diabetes: MGM and PGF. Heart attack: PGF. Non-Hodgkin's lymphoma: Maternal Uncle. Thyroid disease: MGM. Health Status Family Member(s) Father: History is negative Electronic Signature on File CC: Mariah Addison DO [address] [place] [id number] Electronically Reviewed/Signed by: YULISSA Henao Author Signature Dt/Tm:11/05/2023 04:04 PM [facility] Patient Care team information Care Team Personnel Name: MD Rubio Jonathan D Position: Physician - Family Med Member Role: Lifetime Relationship Address: Address: [address] [place] [address] [place] Name: YULISSA Ford Tara Position: Nurse Pract - Family Med Member Role: Lifetime Relationship Address: Address: [address] [place] [id number] [place] Name: Jacob Neely Kayla Position: Pharmacist Member Role: Pharmacy - Lifetime Name: DO Fair Franklin J Position: Physician - Family Med Member Role: Lifetime Relationship Address: Address: [address] [place] [address] [place] Name: MD Singer Mark H Position: Physician - Ped Echo Member Role: Lifetime Relationship Address: Address: [address] [place] [address] [place] Name: DO Addison Kristen M Position: Physician - Family Med Member Role: Primary Care Provider Address: Address: [address] [place] [address] [place] Name: Jacob Giang Kyle Position: Pharmacist Member Role: Pharmacy - Lifetime Address: Address: [address] [place] [address] Care Team Related Persons Name: MEGHANA GARCIA Address: [place] Address: home [address] [place] [phone] Name: MEGHANA GARCIA Address: home [address] [place] [address] [place], [place] [id number] Name: DANY GARCIA Address: home [address] [place] [address], [place] [phone] Name: DANY GARCIA Address: home [address] [place] [address], [id number]"
[2023-11-11] MEDS: CHECK fentaNYL PATCH PLACEMENT SCH
[2023-11-11] MEDS ORDERED: TPN/PPN CONSULT PHARMACY PRN (00:01)
[2023-11-11] MEDS: SODIUM CHLORIDE 0.9% IV PRN (01:27)
[2023-11-11] MEDS: KETAMINE HCL IV PRN (01:27)
[2023-11-11] MEDS ORDERED: HEPARIN 100 UNIT/ML 5ML FLUSH FLUSH PRN (04:38)
[2023-11-11] MEDS: LORazepam 0.5 MG in SYRINGE 0.25 ML IV PRN ×2 (04:47→12:27)
[2023-11-11 05:01] LABS: Basophils # (auto) 0.04 K/uL (0.00-0.20); Basophils % (auto) 0.6 %; Eosinophils # (auto) 0.06 K/uL (0.00-0.50); Eosinophils % (auto) 0.9 %; Hematocrit (blood only) 36.9 % (37.0-47.0); Hemoglobin 12.6 g/dl (12.0-16.0); Immature Granulocytes # (auto) 0.01 K/uL (0.01-0.20); Immature Granulocytes % (auto) 0.2 %; Lymphocytes # (auto) 0.82 K/uL (1.20-3.40); Lymphocytes % (auto) 12.4 %; Mean Corpuscular Hemoglobin 31.3 pg (25.0-34.0); Mean Corpuscular Hgb Conc 34.1 g/dL (32.0-36.0); Mean Corpuscular Volume 91.8 fL (80.0-100.0); Mean Platelet Volume 9.7 fL (9.4-12.4); Monocytes # (auto) 0.58 K/uL (0.11-0.59); Monocytes % (auto) 8.8 %; Neutrophils # (auto) 5.08 K/uL (1.40-6.50); Neutrophils % (auto) 77.1 %; Platelet Count 262 K/uL (130-400); RDW Coefficient of Variation 12.3 % (11.5-14.5); RDW Standard Deviation 41.3 fL (36.4-46.3); Red Blood Count 4.02 M/uL (4.20-5.40); White Blood Count 6.59 K/ul (4.8-10.8)
[2023-11-11 05:19] LABS: Albumin Globulin Ratio 1.5 (0.9-2); Albumin Level 3.5 gm/dl (3.4-5.0); BUN Creatinine Ratio 5.3 (10-20); Bilirubin,Total 0.2 mg/dl (0.2-1.0); Calcium 8.3 mg/dl (8.6-10.3); Chol HDL Ratio 4.8 (0-5); Creatinine Clr Calc Pharmacy 133.9 ml/min; Est GFR (African American) 143.2 ml/min; Est GFR (Non-African American) 123.5 ml/min; Globulin 2.4 gm/dl (2.5-4.0); Magnesium 1.9 mg/dl (1.7-2.4); Potassium 3.2 mmol/L (3.5-5.1); Total Protein 5.9 gm/dl (6.0-8.3)
[2023-11-11] MEDS: LEVOTHYROXINE SODIUM 50 MCG TABLET PO SCH (05:24)
[2023-11-11 05:32] LABS: Thyroid Stimulating Hormone 0.291 uIu/ml (0.300-4.500)
[2023-11-11 06:07] LABS: T4 Free Thyroxine 0.71 ng/dl (0.61-1.60)
--- NOTE | 2023-11-11 06:27 | Ultrasound Report ---
Exam(s): US PELVIS EXAM: US Pelvis Transabdominal, Complete CLINICAL HISTORY: Reason for exam: pelvic pain. TECHNIQUE: Real-time complete transabdominal pelvic ultrasound with image documentation. COMPARISON: No relevant prior studies available. FINDINGS: Uterus/cervix: The uterus is not visualized and has been removed by history. Right ovary: Unremarkable. No mass. Normal blood flow. Left ovary: Presumed 2.4 cm corpus luteal cyst left ovary. Normal blood flow. Free fluid: No free fluid. Bladder: Unremarkable as visualized. Wall is normal thickness for degree of distention. IMPRESSION: Postsurgical change and physiologic change. Electronically signed by: Carlos Fong MD 11/11/23 06:25 AM
--- NOTE | 2023-11-11 07:06 | Hospitalist Progress Note ---
Date of Service November 11, 2023 Assessment & Plan (1) Generalized abdominal pain: (2) Abdominal pain, chronic, generalized: (3) On total parenteral nutrition (TPN): (4) Urinary dysfunction: Plan Pt is a 33 yo female with a past medical history most relevant for endometriosis, chronic abdominal pain on ketamine and opioids as well as TPN, and hx of superior mesenteric syndrome, hx adrenal insufficiency who presents to the hospital on 11/09 for increased pain and trouble urination. #Abdominal pain, generalized, chronic #Worsened chronic abdominal pain - hx SMA syndrome with chronic pain syndrome - on ketamine and ativan at home along with fentanyl patch per med list - last abdominal surgery was in Jun and for awhile did well but has had increasing pain recently - poor tolerance of po intake with nausea and pain has resulted in pt being on TPN, to start this evening here - Dr. Shruthi negrete; pending recs - source of chronic abdominal pain unclear but likely a combination of multiple etiologies for this pt including scar tissue from repeat surgeries vs SMA vs endometriosis #Urinary difficulty - mother and pt note increasing difficulty with urination the last month or two - UA on admission wnl - bladder scan on admission 280 cc prior to voiding and an hour later she voided 500 cc - suspect the difficulty may be more related to decreased po intake of fluids leading to less urinations in a day vs less likely UTI given wnl UA vs other et iology as a result of multiple abdominal surgeries - as pt is voiding here so far, less worried about underlying pathology at this time Diet: TPN to start this evening Admission and Anticipated Discharge Date Admission Date: November 10, 2023 Supervising Physician Co-Signing Physician Notes Attending Physician Supervision Note: I independently interviewed and examined the patient and verified the solorzano history and physical, reviewed labs and image studies and agree with findings and care plan noted above. Subjective Pt is a 33 yo female with a past medical history most relevant for endometriosi s, chronic abdominal pain on ketamine and opioids as well as TPN, and hx of superior mesenteric syndrome, hx adrenal insufficiency who presents to the hospital on 11/09 for increased pain and trouble urination. Today, pt states her abdominal pain is a little bit better than it was yesterday but is still fairly significant. Nausea is about baseline. Her mom is present and states that she had abdominal surgery in June and for a time did very well afterwards but slowly has started to have increasing pain and issues with being able to urinate. Her mom states that they found an endometrioma during that surgery which was drained instead of removed and one of their outpatient doctors thinks it will eventually need removed and they are worried maybe it has progressed. Main concerns this admission are increased difficulty with urination and increased pain. Review of Systems Review of Systems: Per HPI. Physical Exam Physical Exam: General:Alert and oriented, no acute distress, HEENT: Normocephalic, moist oral mucosa, Cardio: Regular rate and rhythm, no murmur, Resp:Lungs clear to auscultation b/l, no wheezes or rhonchi, GI: Soft, nondistended, bowel sounds active Skin: Warm, pink, dry, Results & Data Results & Data Vital Signs (Past 12 Hours) Vital Signs Temp Pulse Pulse Resp BP BP Pulse Ox 11/11/23 06:45 82 11 L 97 11/11/23 06:40 116/94 11/11/23 06:40 116/94 11/11/23 06:40 116/94 11/11/23 06:35 121/99 11/11/23 06:35 121/99 11/11/23 06:30 80 19 98 11/11/23 06:30 124/93 11/11/23 06:30 124/93 11/11/23 06:27 82 22 98 11/11/23 06:25 126/98 11/11/23 06:25 126/98 11/11/23 06:25 126/98 11/11/23 06:20 134/100 11/11/23 06:15 137/107 H 11/11/23 06:15 137/107 H 11/11/23 06:12 109 H 19 94 11/11/23 06:10 135/98 11/11/23 06:10 135/98 11/11/23 06:06 148/102 H 11/11/23 06:00 130/101 H 11/11/23 05:57 94 H 18 97 11/11/23 05:55 132/93 11/11/23 05:55 132/93 11/11/23 05:51 82 18 96 11/11/23 05:50 128/96 11/11/23 05:50 128/96 11/11/23 05:45 120/98 11/11/23 05:45 120/98 11/11/23 05:40 123/92 11/11/23 05:35 131/94 11/11/23 05:35 131/94 11/11/23 05:30 133/101 H 11/11/23 05:30 133/101 H 11/11/23 05:27 84 18 97 11/11/23 05:26 127/103 H 11/11/23 05:21 99 H 11 L 97 11/11/23 05:20 135/106 H 11/11/23 05:20 135/106 H 11/11/23 05:20 135/106 H 11/11/23 05:18 104 H 16 94 11/11/23 05:15 123/85 11/11/23 05:15 123/85 11/11/23 05:12 88 16 96 11/11/23 05:10 129/90 11/11/23 05:10 129/90 11/11/23 05:09 104 H 17 92 11/11/23 05:05 129/96 11/11/23 05:05 129/96 11/11/23 05:05 129/96 11/11/23 05:05 129/96 11/11/23 05:00 130/98 11/11/23 04:57 86 16 96 11/11/23 04:55 127/93 11/11/23 04:55 127/93 11/11/23 04:55 127/93 11/11/23 04:48 104 H 16 96 11/11/23 04:45 127/90 11/11/23 04:45 127/90 11/11/23 04:42 85 17 98 11/11/23 04:40 120/90 11/11/23 04:40 120/90 11/11/23 04:40 120/90 11/11/23 04:36 87 15 97 11/11/23 04:35 133/99 11/11/23 04:35 133/99 11/11/23 04:35 133/99 11/11/23 04:30 127/95 11/11/23 04:30 127/95 11/11/23 04:30 127/95 11/11/23 04:25 120/96 11/11/23 04:24 94 H 13 96 11/11/23 04:20 117/90 11/11/23 04:20 117/90 11/11/23 04:20 117/90 11/11/23 04:18 91 H 15 96 11/11/23 04:15 116/87 11/11/23 04:05 118/88 11/11/23 04:00 88 16 96 11/11/23 04:00 115/85 11/11/23 04:00 36.9 C 11/11/23 04:00 11/11/23 03:55 123/88 11/11/23 03:48 85 15 96 11/11/23 03:45 90 16 96 11/11/23 03:45 124/89 11/11/23 03:45 124/89 11/11/23 03:45 124/89 11/11/23 03:40 115/92 11/11/23 03:39 89 16 95 11/11/23 03:35 123/85 11/11/23 03:35 123/85 11/11/23 03:33 86 16 96 11/11/23 03:30 124/94 11/11/23 03:25 129/87 11/11/23 03:24 88 15 96 11/11/23 03:20 122/86 11/11/23 03:12 91 H 17 96 11/11/23 03:10 129/91 11/11/23 03:10 129/91 11/11/23 03:09 92 H 14 96 11/11/23 03:06 94 H 16 96 11/11/23 03:05 118/92 11/11/23 01:55 85 12 123/97 97 11/11/23 01:50 91 H 11 L 130/89 95 11/11/23 01:45 88 12 130/94 94 11/11/23 01:40 124/98 11/11/23 01:39 91 H 14 94 11/11/23 01:35 129/91 11/11/23 01:30 88 12 121/94 94 11/11/23 01:30 121/94 11/11/23 01:30 86 11 L 97 11/11/23 01:29 127/95 11/11/23 01:27 86 12 96 11/11/23 01:15 134/90 11/11/23 01:15 134/90 11/11/23 01:15 93 H 12 97 11/11/23 01:03 93 H 12 93 11/11/23 01:00 131/93 11/11/23 01:00 131/93 11/11/23 01:00 131/93 11/11/23 01:00 131/93 11/11/23 01:00 131/93 11/11/23 01:00 131/93 11/11/23 01:00 131/93 11/11/23 00:57 89 12 97 11/11/23 00:51 94 H 11 L 99 11/11/23 00:48 104 H 12 97 11/11/23 00:45 126/91 11/11/23 00:45 126/91 11/11/23 00:45 126/91 11/11/23 00:45 126/91 11/11/23 00:45 126/91 11/11/23 00:45 126/91 11/11/23 00:42 98 H 12 99 11/11/23 00:36 115 H 15 95 11/11/23 00:30 131/102 H 11/11/23 00:30 131/102 H 11/11/23 00:30 131/102 H 11/11/23 00:30 131/102 H 11/11/23 00:30 131/102 H 11/11/23 00:30 131/102 H 11/11/23 00:27 89 12 96 11/11/23 00:21 88 16 96 11/11/23 00:15 132/98 11/11/23 00:15 132/98 11/11/23 00:15 132/98 11/11/23 00:15 132/98 11/11/23 00:15 132/98 11/11/23 00:15 132/98 11/11/23 00:12 88 11 L 100 11/11/23 00:06 87 11 L 99 11/11/23 00:00 134/100 11/11/23 00:00 134/100 11/11/23 00:00 134/100 11/11/23 00:00 134/100 11/11/23 00:00 134/100 11/11/23 00:00 134/100 11/11/23 00:00 36.8 C 11/11/23 00:00 11/11/23 00:00 92 H 11/10/23 23:57 102 H 12 97 11/10/23 23:45 145/107 H 11/10/23 23:45 145/107 H 11/10/23 23:45 145/107 H 11/10/23 23:45 145/107 H 11/10/23 23:45 106 H 12 97 11/10/23 23:36 106 H 11 L 99 11/10/23 23:30 155/107 H 11/10/23 23:30 155/107 H 11/10/23 23:30 155/107 H 11/10/23 23:30 155/107 H 11/10/23 23:30 93 H 12 98 11/10/23 23:18 117 H 15 99 11/10/23 23:15 133/103 H 11/10/23 23:15 133/103 H 11/10/23 23:04 135/99 11/10/23 23:03 88 15 100 11/10/23 23:00 136/100 11/10/23 23:00 11/10/23 23:00 107 H 11/10/23 22:48 93 H 15 99 11/10/23 22:45 90 15 99 11/10/23 22:30 95 H 14 99 11/10/23 22:21 112 H 14 98 11/10/23 22:15 94 H 15 97 11/10/23 22:12 118 H 12 96 11/10/23 22:09 120 H 13 100 11/10/23 22:03 116 H 13 98 11/10/23 22:01 135/93 11/10/23 22:01 135/93 11/10/23 22:01 135/93 11/10/23 22:01 135/93 11/10/23 22:01 135/93 11/10/23 22:01 135/93 11/10/23 22:01 135/93 11/10/23 21:54 36.8 C 101 H 20 138/99 98 11/10/23 21:51 92 H 12 98 11/10/23 21:43 138/99 11/10/23 21:43 138/99 11/10/23 21:43 138/99 11/10/23 21:43 138/99 11/10/23 21:18 11/10/23 21:09 113 H 12 96 11/10/23 21:00 117/88 11/10/23 21:00 117/88 11/10/23 21:00 117/88 11/10/23 21:00 117/88 11/10/23 21:00 117/88 11/10/23 21:00 117/88 11/10/23 21:00 105 H 13 96 11/10/23 20:51 88 18 97 11/10/23 20:36 88 16 97 11/10/23 20:33 86 12 97 11/10/23 20:30 173/110 H 11/10/23 20:30 173/110 H 11/10/23 20:30 173/110 H 11/10/23 20:30 173/110 H 11/10/23 20:30 173/110 H 11/10/23 20:30 173/110 H 11/10/23 20:30 173/110 H 11/10/23 20:24 83 16 97 11/10/23 20:18 84 16 96 11/10/23 20:12 85 96 11/10/23 20:00 160/106 H 11/10/23 20:00 160/106 H 11/10/23 20:00 160/106 H 11/10/23 20:00 160/106 H 11/10/23 20:00 160/106 H 11/10/23 20:00 11/10/23 20:00 11/10/23 20:00 11/10/23 20:00 11/10/23 20:00 11/10/23 19:57 103 H 95 11/10/23 19:45 90 97 11/10/23 19:42 86 97 11/10/23 19:36 88 97 Pulse Ox O2 Del Method O2 Del Method 11/11/23 06:45 11/11/23 06:40 11/11/23 06:40 11/11/23 06:40 11/11/23 06:35 11/11/23 06:35 11/11/23 06:30 11/11/23 06:30 11/11/23 06:30 11/11/23 06:27 11/11/23 06:25 11/11/23 06:25 11/11/23 06:25 11/11/23 06:20 11/11/23 06:15 11/11/23 06:15 11/11/23 06:12 11/11/23 06:10 11/11/23 06:10 11/11/23 06:06 11/11/23 06:00 11/11/23 05:57 11/11/23 05:55 11/11/23 05:55 11/11/23 05:51 11/11/23 05:50 11/11/23 05:50 11/11/23 05:45 11/11/23 05:45 11/11/23 05:40 11/11/23 05:35 11/11/23 05:35 11/11/23 05:30 11/11/23 05:30 11/11/23 05:27 11/11/23 05:26 11/11/23 05:21 11/11/23 05:20 11/11/23 05:20 11/11/23 05:20 11/11/23 05:18 11/11/23 05:15 11/11/23 05:15 11/11/23 05:12 11/11/23 05:10 11/11/23 05:10 11/11/23 05:09 11/11/23 05:05 11/11/23 05:05 11/11/23 05:05 11/11/23 05:05 11/11/23 05:00 11/11/23 04:57 11/11/23 04:55 11/11/23 04:55 11/11/23 04:55 11/11/23 04:48 11/11/23 04:45 11/11/23 04:45 11/11/23 04:42 11/11/23 04:40 11/11/23 04:40 11/11/23 04:40 11/11/23 04:36 11/11/23 04:35 11/11/23 04:35 11/11/23 04:35 11/11/23 04:30 11/11/23 04:30 11/11/23 04:30 11/11/23 04:25 11/11/23 04:24 11/11/23 04:20 11/11/23 04:20 11/11/23 04:20 11/11/23 04:18 11/11/23 04:15 11/11/23 04:05 11/11/23 04:00 11/11/23 04:00 11/11/23 04:00 11/11/23 04:00 96 Room Air 11/11/23 03:55 11/11/23 03:48 11/11/23 03:45 11/11/23 03:45 11/11/23 03:45 11/11/23 03:45 11/11/23 03:40 11/11/23 03:39 11/11/23 03:35 11/11/23 03:35 11/11/23 03:33 11/11/23 03:30 11/11/23 03:25 11/11/23 03:24 11/11/23 03:20 11/11/23 03:12 11/11/23 03:10 11/11/23 03:10 11/11/23 03:09 11/11/23 03:06 11/11/23 03:05 11/11/23 01:55 11/11/23 01:50 11/11/23 01:45 11/11/23 01:40 11/11/23 01:39 11/11/23 01:35 11/11/23 01:30 11/11/23 01:30 11/11/23 01:30 11/11/23 01:29 11/11/23 01:27 11/11/23 01:15 11/11/23 01:15 11/11/23 01:15 11/11/23 01:03 11/11/23 01:00 11/11/23 01:00 11/11/23 01:00 11/11/23 01:00 11/11/23 01:00 11/11/23 01:00 11/11/23 01:00 11/11/23 00:57 11/11/23 00:51 11/11/23 00:48 11/11/23 00:45 11/11/23 00:45 11/11/23 00:45 11/11/23 00:45 11/11/23 00:45 11/11/23 00:45 11/11/23 00:42 11/11/23 00:36 11/11/23 00:30 11/11/23 00:30 11/11/23 00:30 11/11/23 00:30 11/11/23 00:30 11/11/23 00:30 11/11/23 00:27 11/11/23 00:21 11/11/23 00:15 11/11/23 00:15 11/11/23 00:15 11/11/23 00:15 11/11/23 00:15 11/11/23 00:15 11/11/23 00:12 11/11/23 00:11/11/23 00:00 11/11/23 00:00 11/11/23 00:00 11/11/23 00:00 11/11/23 00:00 11/11/23 00:00 11/11/23 00:00 11/11/23 00:00 97 Room Air 11/11/23 00:00 11/10/23 23:57 11/10/23 23:45 11/10/23 23:45 11/10/23 23:45 11/10/23 23:45 11/10/23 23:45 11/10/23 23:36 11/10/23 23:30 11/10/23 23:30 11/10/23 23:30 11/10/23 23:30 11/10/23 23:30 11/10/23 23:18 11/10/23 23:15 11/10/23 23:15 11/10/23 23:04 11/10/23 23:03 11/10/23 23:00 11/10/23 23:00 98 Room Air 11/10/23 23:00 11/10/23 22:48 11/10/23 22:45 11/10/23 22:30 11/10/23 22:21 11/10/23 22:15 11/10/23 22:12 11/10/23 22:09 11/10/23 22:03 11/10/23 22:01 11/10/23 22:01 11/10/23 22:01 11/10/23 22:01 11/10/23 22:01 11/10/23 22:01 11/10/23 22:01 11/10/23 21:54 Room Air 11/10/23 21:51 11/10/23 21:43 11/10/23 21:43 11/10/23 21:43 11/10/23 21:43 11/10/23 21:18 Room Air 11/10/23 21:09 11/10/23 21:00 11/10/23 21:00 11/10/23 21:00 11/10/23 21:00 11/10/23 21:00 11/10/23 21:00 11/10/23 21:00 11/10/23 20:51 11/10/23 20:36 11/10/23 20:33 11/10/23 20:30 11/10/23 20:30 11/10/23 20:30 11/10/23 20:30 11/10/23 20:30 11/10/23 20:30 11/10/23 20:30 11/10/23 20:24 11/10/23 20:18 11/10/23 20:12 11/10/23 20:00 11/10/23 20:00 11/10/23 20:00 11/10/23 20:00 11/10/23 20:00 11/10/23 20:00 Room Air 11/10/23 20:00 Room Air 11/10/23 20:00 Room Air 11/10/23 20:00 97 Room Air 11/10/23 20:00 Room Air 11/10/23 19:57 11/10/23 19:45 11/10/23 19:42 11/10/23 19:36 Resident Activity Tracking Resident Involvement: Resident Care Provided Care Provided: Adult Hospital Medicine
[2023-11-11] MEDS: HYOSCYAMINE SULFATE 0.125 MG TAB SL PRN (08:16)
[2023-11-11] MEDS: DULoxetine HCL 60 MG CAP PO SCH (08:17)
[2023-11-11] MEDS: HYDROCORTISONE 10 MG TAB PO SCH (08:17)
[2023-11-11] MEDS: PANTOprazole 40 MG TAB PO SCH (08:17)
[2023-11-11] MEDS: POTASSIUM CHLORIDE / WTR 10 MEQ/100 ML PLCT IV SCH (10:06)
--- NOTE | 2023-11-11 10:08 | Pain Management Consultation ---
Date of Consultation November 11, 2023 Assessment & Plan (1) Abdominal pain: Abdominal location: lower abdomen, unspecified Qualified Code(s): R10.30 - Lower abdominal pain, unspecified (2) Urinary dysfunction: (3) Endometriosis: (4) On total parenteral nutrition (TPN): (5) Visceral hyperalgesia: (6) Pain disorder: (7) History of seizures: (8) Endometrioma of ovary: (9) SMAS (superior mesenteric artery syndrome): (10) History of lysis of adhesions: History of Present Illness Attending Physician: Catrina Turner MD Allergies Allergy/AdvReac Type Severity Reaction Status Date / Time diphenhydramine Allergy Severe Anaphylaxis Verified 11/10/23 15:30 promethazine Allergy Severe hives, Verified 11/10/23 15:30 throat swelling adhesive Allergy Intermediate Redness of Verified 11/10/23 15:30 Skin amoxicillin Allergy Intermediate RASH Verified 11/10/23 15:30 azithromycin [From Zithromax] Allergy Intermediate RASH/VOMITI Verified 11/10/23 15:30 NG calcium Allergy Intermediate SEE COMMENT Verified 11/10/23 15:30 [From VIACTIV Multi-Vitamin] cefazolin Allergy Intermediate rash Verified 11/10/23 15:30 Cephalosporins Allergy Intermediate HIVES Verified 11/10/23 15:30 clavulanic acid Allergy Intermediate HIVES Verified 11/10/23 15:30 ferric carboxymaltose Allergy Intermediate Rash Verified 11/10/23 15:30 [From Injectafer] folic acid Allergy Intermediate SEE COMMENT Verified 11/10/23 15:30 [From VIACTIV Multi-Vitamin] iron [From Venofer] Allergy Intermediate Muscle Pain Verified 11/10/23 15:30 multivitamin with minerals Allergy Intermediate SEE COMMENT Verified 11/10/23 15:30 [From VIACTIV Multi-Vitamin] Penicillins Allergy Intermediate HIVES Verified 11/10/23 15:30 prochlorperazine Allergy Intermediate HIVES Verified 11/10/23 15:30 sulfamethoxazole Allergy Intermediate RASH Verified 11/10/23 15:30 sumatriptan Allergy Intermediate RASH Verified 11/10/23 15:30 trimethoprim Allergy Intermediate RASH Verified 11/10/23 15:30 metoclopramide AdvReac Severe anxiety/ Verified 11/10/23 15:30 jittery morphine AdvReac Severe Severe Verified 06/25/24 15:30 abdominal Pain, sphincter of oddi spasms erythromycin base AdvReac Intermediate GI SYMPTOMS Verified 11/10/23 15:30 citalopram [From Celexa] AdvReac Unknown CAN'T Verified 11/10/23 15:30 REMEMBER Home Medications Medication Instructions Recorded Confirmed Type dicyclomine 10 mg capsule 20 mg PO Q6H PRN Abdominal Pain 03/07/18 11/10/23 History pantoprazole 40 mg tablet,delayed 40 mg PO QAM 09/08/19 11/10/23 History release (Protonix) famotidine 40 mg tablet 20 mg PO BID 11/28/19 11/10/23 History hydrocortisone 10 mg tablet See Rx Instructions .Route .COMPLEX 02/07/20 11/10/23 History fexofenadine 180 mg tablet 180 mg PO HS 10/09/20 11/10/23 History fludrocortisone 0.1 mg tablet 0.1 mg PO BID 12/12/20 11/10/23 History acetaminophen 500 mg tablet 1,000 mg PO Q6H PRN Pain 06/13/21 11/10/23 History (Tylenol Extra Strength) multivitamin with minerals-folic 2 tab PO HS 06/13/21 11/10/23 History acid 200 mcg chewable tablet (Multivitamin Gummies) turmeric 400 mg capsule 400 mg PO HS 06/13/21 11/10/23 History empty container (Enema Misc Bottle) #72 ea 01/16/22 11/03/23 Rx cholecalciferol (vitamin D3) 25 50 mcg PO QAM 04/07/22 11/10/23 History mcg (1,000 unit) capsule (Vitamin D3) duloxetine 60 mg capsule,delayed 60 mg PO QAM 04/07/22 11/10/23 History release methocarbamol 750 mg tablet 750 mg PO TID 04/07/22 11/10/23 History coenzyme Q10 100 mg capsule 100 mg PO PM 07/22/22 11/10/23 History (CoQ-10) pyridoxine (vitamin B6) 50 mg 50 mg PO QAM 07/22/22 11/10/23 History tablet ondansetron 8 mg disintegrating 8 mg PO TID PRN Nausea 10/06/22 11/10/23 History tablet fentanyl 75 mcg/hr transdermal 1 patch transdermal Q72H #10 ea 10/23/22 11/10/23 Rx patch lorazepam 2 mg/mL injection 0.5 mg (0.25 mL) buccal QID PRN 12/04/22 11/10/23 Rx solution (Ativan) Nausea #100 mL bethanechol chloride 25 mg tablet 12.5 mg (1/2 x 25 mg) PO BID PRN 12/05/22 11/10/23 Rx urinary retention #20 tabs levothyroxine 50 mcg tablet 50 mcg PO QAM 03/04/23 11/10/23 History (Synthroid) gabapentin 250 mg/5 mL oral 900 mg PO TID 03/10/23 11/10/23 History solution oxycodone 20 mg/mL oral concentrate 20 mg PO QID PRN Pain 08/05/23 11/10/23 History calcium carbonate 250 mg PO QPM 11/10/23 11/10/23 History norethindrone (contraceptive) 0.35 0.35 mg PO QAM 11/10/23 11/10/23 History mg tablet Patient History Medical History Hx of Clostridium difficile infection 5 years ago, tx. 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 carroll, [facility] Spinal cord stimulator status trial implanted 03/02/23, in dr. ramírez's office>advised to bring remote Chronic, continuous use of opioids Difficult intravenous access Intractable pain Abdominal pain Elevated lipase Transaminitis Colitis Chronic malnutrition Gastrostomy tube in place Intussusception hx PICC (peripherally inserted central catheter) in place TPN Pancreatitis hx Sphincter of Oddi dysfunction DECREASED GI MOTILITY Uses feeding tube gastroparesis and decreased GI motility can not tolerate feeding and uses TPN Epigastric abdominal pain Dehydration "kind of always dehydrated" SMAS (superior mesenteric artery syndrome) History of SMAS Nausea Surgical History History of liver biopsy 2023 Hx of exploratory laparotomy History of esophagogastroduodenoscopy (EGD) Ileostomy status Hx of ileostomy Hx of colonoscopy during procedure perforated small bowel 10/27/2019 at [facility], subsequent repair of duodenal area. History of bowel resection Part of duodenum removed due to necrosis; done at [facility] 2019 History of removal of Port-a-Cath 10/13/[address] Geiger, [facility], due to bacteremia/sepsis.; "inserted and removed multiple times" History of hysterectomy 09/27/19 History of appendectomy History of vascular access device 2018; implanted and removed "several" times Family History Father Hyperlipidemia Other No significant family history Social History Smoking Status: Never smoker Second Hand Exposure: No; Do You Dip or Chew Tobacco: No; Hx Alcohol Use: No Hx Substance Use: No Preferred Language: Kittitian Communication Ability: Effective Visual Impairment: No Limitations Hearing Ability: Normal Replacer Required: No Beliefs That Will Affect Care: None marital status: Single Current Living Situation: Parent Current Living Situation Comment: Patient lives at home with both parents current occupational status: unemployed current occupation: completed 4-year degree at [employer] How many Children do You have: 0 Feels Safe at Home: Yes Diet: regular Sexual Activity Comment: not sexually active Assistive Devices: Wheelchair Results (Pain Clinic) Diagnostic Review MRI Findings: MR hip RT wo con CLINICAL HISTORY: 33 years-old Female with RT HIP PAIN. Subacute pain of the right hip COMPARISON: Radiographs 10/15/2023 TECHNIQUE: Multiplanar, multi sequence MRI of the right hip was performed without intravenous contrast. FINDINGS: Bilateral T1 hyperintense adnexal lesions measuring up to approximately 2.7 cm suggestive of hemorrhagic cysts versus endometrioma. Free pelvic fluid is likely physiologic. Decompressed urinary bladder. Surgical clips within the pelvis. LABRUM: Suboptimal evaluation of the bilateral acetabluar domingo without intra- articular contrast. There is no evidence for a labral tear, chondrolabral separation or paralabral cyst. BONE MARROW: Bone marrow signal is within normal limits. No evidence of avascular necrosis, fracture or transient osteoporosis. BURSAE: There is no evidence for iliopsoas or trochanteric bursitis. HIP JOINT: The cartilage overlying the acetabulum and femoral head is intact. There is no evidence for femoral-acetabular or ischiofemoral impingement syndrome. There is no joint effusion. No intraarticular loose body is evident. MUSCLES: Muscular signal and morphology is within normal limits. SCIATIC NERVE: The morphology and signal characteristics of the sciatic nerve appear normal. IMPRESSION: 1. Unremarkable MRI of the hips. 2. Likely physiologic free pelvic fluid with bilateral T1 hyperintense adnexal lesions suggestive of endometriomas versus hemorrhagic cysts. Findings could be correlated with follow-up pelvic ultrasound if further clinical concern. ACT 112: Negative or not required by law. The above report was generated using voice recognition software. It may contain grammatical, syntax or spelling errors. Electronically signed by: Derrek Sow M.D. 11/02/2023 3:18 PM Dictated: 11/02/23 143 Transcribed: 11/02/231434 Other Findings: Exam(s): US PELVIS EXAM: US Pelvis Transabdominal, Complete CLINICAL HISTORY: Reason for exam: pelvic pain. TECHNIQUE: Real-time complete transabdominal pelvic ultrasound with image documentation. COMPARISON: No relevant prior studies available. FINDINGS: Uterus/cervix: The uterus is not visualized and has been removed by history. Right ovary: Unremarkable. No mass. Normal blood flow. Left ovary: Presumed 2.4 cm corpus luteal cyst left ovary. Normal blood flow. Free fluid: No free fluid. Bladder: Unremarkable as visualized. Wall is normal thickness for degree of distention. IMPRESSION: Postsurgical change and physiologic change. Electronically signed by: Carlos Fong MD 11/11/23 06:25 AM Dictated: 11/11/23624 Transcribed: 11/11/23624
[2023-11-11] MEDS ORDERED: DEXTROSE 10% 1,000 ML IV PRN (12:03)
[2023-11-11] MEDS: ONDANSETRON INJ 2 MG/ML 2 ML VIAL IV PRN (16:15)
[2023-11-11] MEDS: [UNRECOGNIZED DRUG - OTHER] IV SCH (19:47)
[2023-11-11] MEDS: CENTRAL TPN IV SCH (19:47)
[2023-11-12 04:59] LABS: Anion Gap 4 (3-11); BUN Creatinine Ratio 24.5 (10-20); Blood Urea Nitrogen 12 mg/dl (6-23); Calcium 8.4 mg/dl (8.6-10.3); Carbon Dioxide 31 mmol/L (21-32); Chloride 104 mmol/L (98-107); Creatinine Clr Calc Pharmacy 155.7 ml/min; Est GFR (African American) > 150.0 ml/min; Est GFR (Non-African American) 129.8 ml/min; Glucose 116 mg/dl (70-99(Fasting)); Phosphorus 2.9 mg/dl (2.5-4.9); Potassium 3.6 mmol/L (3.5-5.1); Sodium 139 mmol/L (136-145)
--- NOTE | 2023-11-12 07:20 | Hospitalist Progress Note ---
Date of Service November 12, 2023 Assessment & Plan (1) Generalized abdominal pain: (2) Abdominal pain, chronic, generalized: (3) On total parenteral nutrition (TPN): (4) Urinary dysfunction: Plan Pt is a 33 yo female with a past medical history most relevant for endometriosis, chronic abdominal pain on ketamine and opioids as well as TPN, and hx of superior mesenteric syndrome, hx adrenal insufficiency who presents to the hospital on 11/09 for increased pain and trouble urination. #Abdominal pain, generalized, chronic #Worsened chronic abdominal pain - hx SMA syndrome with chronic pain syndrome - on ketamine and ativan at home along with fentanyl patch per med list - last abdominal surgery was in Jun and for awhile did well but has had increasing pain recently - poor tolerance of po intake with nausea and pain has resulted in pt being on TPN, to start this evening here - Dr. Shruthi negrete; pending recs - source of chronic abdominal pain unclear but likely a combination of multiple etiologies for this pt including scar tissue from repeat surgeries vs SMA vs endometriosis #Urinary difficulty - mother and pt note increasing difficulty with urination the last month or two - UA on admission wnl - bladder scan on admission 280 cc prior to voiding and an hour later she voided 500 cc - suspect the difficulty may be more related to decreased po intake of fluids leading to less urinations in a day vs less likely UTI given wnl UA vs other et iology as a result of multiple abdominal surgeries - as pt is voiding here so far, less worried about underlying pathology at this time Diet: TPN to start this evening Admission and Anticipated Discharge Date Admission Date: November 10, 2023 Subjective Pt is a 33 yo female with a past medical history most relevant for endometriosis, chronic abdominal pain on ketamine and opioids as well as TPN, and hx of superior mesenteric syndrome, hx adrenal insufficiency who presents to the hospital on 11/09 for increased pain and trouble urination. Today, Review of Systems Review of Systems: Per HPI. Physical Exam Physical Exam: General:Alert and oriented, no acute distress, HEENT: Normocephalic, moist oral mucosa, Cardio: Regular rate and rhythm, no murmur, Resp:Lungs clear to auscultation b/l, no wheezes or rhonchi, GI: Soft, nondistended, bowel sounds active Skin: Warm, pink, dry, Results & Data Results & Data Vital Signs (Past 12 Hours) Vital Signs Temp Pulse Resp BP Pulse Ox Pulse Ox O2 Del Method 11/12/23 06:51 96 H 19 96 11/12/23 06:50 118/87 11/12/23 06:50 118/87 11/12/23 06:48 103 H 13 96 11/12/23 06:45 96 H 11 L 96 11/12/23 06:45 129/88 11/12/23 06:45 129/88 11/12/23 06:45 129/88 11/12/23 06:45 129/88 11/12/23 06:40 121/92 11/12/23 06:39 96 H 10 L 96 11/12/23 06:36 100 H 13 97 11/12/23 06:35 121/83 11/12/23 06:35 121/83 11/12/23 06:30 116/84 11/12/23 06:27 93 H 13 96 11/12/23 06:25 116/87 11/12/23 06:25 116/87 11/12/23 06:25 116/87 11/12/23 06:25 116/87 11/12/23 06:21 94 H 16 96 11/12/23 06:20 118/89 11/12/23 06:15 116/87 11/12/23 06:10 124/92 11/12/23 06:09 95 H 17 96 11/12/23 06:06 99 H 19 97 11/12/23 06:05 122/95 11/12/23 06:05 122/95 11/12/23 06:05 122/95 11/12/23 06:05 122/95 11/12/23 06:05 122/95 11/12/23 05:55 126/97 11/12/23 05:51 119 H 12 98 11/12/23 05:50 123/87 11/12/23 05:45 105 H 11 L 97 11/12/23 05:45 114/84 11/12/23 05:45 114/84 11/12/23 05:45 114/84 11/12/23 05:42 93 H 15 96 11/12/23 05:40 99/74 L 11/12/23 05:40 99/74 L 11/12/23 05:35 101/73 11/12/23 05:35 101/73 11/12/23 05:30 90 15 96 11/12/23 05:30 104/73 11/12/23 05:30 104/73 11/12/23 05:21 93 H 16 96 11/12/23 05:20 113/80 11/12/23 05:15 99 H 16 96 11/12/23 05:15 111/82 11/12/23 05:15 111/82 11/12/23 05:15 111/82 11/12/23 05:10 112/82 11/12/23 05:10 112/82 11/12/23 05:03 94 H 15 95 11/12/23 05:00 115/81 11/12/23 04:55 116/86 11/12/23 04:55 116/86 11/12/23 04:51 99 H 15 95 11/12/23 04:50 116/83 11/12/23 04:45 118/84 11/12/23 04:40 119/81 11/12/23 04:40 119/81 11/12/23 04:40 119/81 11/12/23 04:33 96 H 16 95 11/12/23 04:30 94 H 16 95 11/12/23 04:30 120/84 11/12/23 04:30 120/84 11/12/23 04:27 95 H 15 95 11/12/23 04:25 123/90 11/12/23 04:20 128/99 11/12/23 04:20 128/99 11/12/23 04:00 36.9 C 11/12/23 04:00 99 Room Air 11/12/23 01:42 84 16 97 11/12/23 01:40 125/95 11/12/23 01:40 125/95 11/12/23 01:40 125/95 11/12/23 01:36 84 16 96 11/12/23 01:35 132/97 11/12/23 01:35 132/97 11/12/23 01:33 87 16 96 11/12/23 01:30 87 15 96 11/12/23 01:30 134/100 11/12/23 01:30 134/100 11/12/23 01:30 134/100 11/12/23 01:25 136/101 H 11/12/23 01:25 136/101 H 11/12/23 01:20 136/98 11/12/23 01:15 122/87 11/12/23 01:10 118/88 11/12/23 01:06 92 H 11 L 97 11/12/23 01:05 119/87 11/12/23 01:05 119/87 11/12/23 01:00 119/81 11/12/23 01:00 119/81 11/12/23 00:55 120/79 11/12/23 00:55 120/79 11/12/23 00:51 94 H 19 97 11/12/23 00:50 121/93 11/12/23 00:50 121/93 11/12/23 00:45 132/96 11/12/23 00:40 143/99 H 11/12/23 00:36 100 H 18 100 11/12/23 00:35 150/104 H 11/12/23 00:30 135/107 H 11/12/23 00:25 137/103 H 11/12/23 00:09 111 H 17 98 11/12/23 00:06 130/107 H 11/12/23 00:06 130/107 H 11/12/23 00:00 143/112 H 11/12/23 00:00 99 Room Air 11/12/23 00:00 103 H 11/12/23 00:00 37.0 C 11/11/23 23:55 134/101 H 11/11/23 23:55 134/101 H 11/11/23 23:55 134/101 H 11/11/23 23:45 137/93 11/11/23 23:40 132/100 11/11/23 23:40 132/100 11/11/23 23:35 130/106 H 11/11/23 23:35 130/106 H 11/11/23 23:30 88 11 L 96 11/11/23 23:30 139/99 11/11/23 23:25 118/90 11/11/23 23:25 88 15 118/90 97 11/11/23 23:20 91 H 17 128/89 96 11/11/23 23:15 118/90 11/11/23 23:15 84 14 97 11/11/23 23:15 118/90 06/26/24 23:10 122/78 11/11/23 23:10 122/78 11/11/23 23:09 76 16 96 11/11/23 23:06 79 19 98 11/11/23 23:05 117/92 11/11/23 23:05 117/92 11/11/23 23:00 84 16 98 11/11/23 23:00 125/92 11/11/23 23:00 125/92 11/11/23 22:55 125/88 11/11/23 22:55 77 18 125/88 98 11/11/23 22:50 100 H 18 109/82 99 11/11/23 22:50 109/82 11/11/23 22:45 84 14 97 11/11/23 22:45 112/75 11/11/23 22:45 112/75 11/11/23 22:42 82 14 97 11/11/23 22:40 119/80 11/11/23 22:40 119/80 11/11/23 22:40 119/80 11/11/23 22:39 90 12 97 11/11/23 22:35 118/77 11/11/23 22:35 118/77 11/11/23 22:33 79 14 96 11/11/23 22:30 122/80 11/11/23 22:30 122/80 11/11/23 22:25 114/87 11/11/23 22:24 79 13 96 11/11/23 22:21 80 13 97 11/11/23 22:20 119/80 11/11/23 22:20 119/80 11/11/23 22:15 111/79 11/11/23 22:10 119/82 11/11/23 22:10 119/82 11/11/23 22:05 112/77 11/11/23 22:05 112/77 11/11/23 21:55 117/82 11/11/23 21:50 103/82 11/11/23 21:50 103/82 11/11/23 21:50 103/82 11/11/23 21:45 112/83 11/11/23 21:40 113/79 11/11/23 21:36 82 16 96 11/11/23 21:35 106/76 11/11/23 21:30 110/75 11/11/23 21:30 110/75 11/11/23 21:25 111/79 11/11/23 21:25 111/79 11/11/23 21:21 82 15 95 11/11/23 21:20 111/75 11/11/23 21:20 111/75 11/11/23 21:20 111/75 11/11/23 21:15 116/76 11/11/23 21:15 116/76 11/11/23 21:15 81 12 96 11/11/23 21:10 117/85 11/11/23 21:10 117/85 11/11/23 21:09 91 H 14 96 11/11/23 21:05 115/77 11/11/23 21:05 115/77 11/11/23 21:00 117/81 11/11/23 20:55 123/79 11/11/23 20:55 123/79 11/11/23 20:51 87 15 98 11/11/23 20:50 121/81 11/11/23 20:50 121/81 11/11/23 20:45 89 19 97 11/11/23 20:45 129/85 11/11/23 20:45 129/85 11/11/23 20:42 85 10 L 97 11/11/23 20:40 122/85 11/11/23 20:40 122/85 11/11/23 20:35 133/94 11/11/23 20:30 143/103 H 11/11/23 20:20 138/107 H 11/11/23 20:20 138/107 H 11/11/23 20:15 89 11 L 99 11/11/23 20:15 137/101 H 11/11/23 20:15 137/101 H 11/11/23 20:10 137/99 11/11/23 20:05 151/103 H 11/11/23 20:03 91 H 18 98 11/11/23 20:00 36.9 C 11/11/23 20:00 100 Room Air 11/11/23 20:00 125/91 11/11/23 20:00 125/91 11/11/23 19:57 86 15 96 11/11/23 19:55 120/87 11/11/23 19:55 120/87 11/11/23 19:54 90 12 97 11/11/23 19:50 123/87 11/11/23 19:45 121/80 11/11/23 19:45 121/80 11/11/23 19:36 87 19 97 11/11/23 19:35 119/82 11/11/23 19:35 119/82 11/11/23 19:35 119/82 11/11/23 19:35 119/82 11/11/23 19:34 124/85 11/11/23 19:33 102 H 17 97
[2023-11-12] MEDS ORDERED: [UNRECOGNIZED DRUG - OTHER] IV SCH ×2 (10:45→21:00)
[2023-11-12] MEDS ORDERED: CENTRAL TPN IV SCH ×3 (10:45→21:00)
--- NOTE | 2023-11-12 11:11 | Discharge Summary ---
Date of Service November 12, 2023 Admission HPI Per Admitting Provider Is a 33-year-old female who is well-known to this medical facility multiple practitioners for her chronic intermittent abdominal pain mostly related to a history of a superior mesenteric syndrome/SMA syndrome. This patient's been admitted multiple times for severe intractable abdominal pain requiring a protocol developed locally with IV ketamine oral oxycodone and IV Ativan. She presented today with increasing abdominal pain and increasing signs and symptoms of urinary retention. In the ER she bladder scan initially for proximally 280 cc and approximately 1 hour later she voided for 500 cc of urine. She received 30 mg of IV ketamine in the ER she received a liter of normal saline she received IV Zofran she received oral oxycodone and 10 mill equivalents potassium chloride. No abdominal imaging was performed with the exception of a KUB. This was unremarkable. Patient and his mother also report recent history of surgery in June 2023 at [facility] for revision of SMA surgery in the past as well as lysis of adhesions as well as a drainage of an endometrioma. The patient does follow with gynecology for this endometrioma and they have been doing serial ultrasounds to monitor per the patient and family. At this time we admitted the patient to the ICU due to the fact she had a significant amount of IV ketamine. We will obtain consultation with pain management we have paged Dr. Crump and are awaiting a callback at the time of this dictation. In addition we will do a pelvic ultrasound. I did do a stat lactic acid level which was reassuring at 1.1 therefore we will not do a CT given the amount of CTs this patient's had in her life currently and given my current abdominal exam as described above. The patient does state that her abdominal pain is significantly improved since presentation to the ER with the treatment provided Admission Exam Per Admitting Provider In General: In general is a 33-year-old female who is alert and oriented x 3 at the time of my exam she is accompanied by her mother at the time of my exam. She has granted permission to be in the room during my interview and exam. The patient does not appear to be in any amount of significant distress. HEENT: Normocephalic atraumatic pupils are equal round and reactive to light bilaterally. No scleral icterus no conjunctival injection external auditory canals are patent septum is in the midline nose is without discharge oral mucosa is pink and moist without lesion. NECK: Supple no rigidity no lymphadenopathy no thyromegaly no carotid bruits no JVD no masses. HEART: Regular rate and rhythm I do not appreciate any ectopy or rub. No murmur. LUNGS: Clear to auscultation bilaterally and anteriorly with no evidence of adventitious sounds/wheezes rales or rhonchi. ABDOMEN: Grossly abnormal abdominal exam. Patient has a PEG tube in place surrounding area and insertion site intact clean and dry. No discharge no surrounding erythema. In addition she has a ileostomy in the right lower quadrant. The ostomy looks healthy on inspection. Her abdomen is flat, it is soft, patient has no real tenderness with palpation at this time of her abdomen, she states it is much improved with the current treatment. EXTREMITIES: Intact, no peripheral cyanosis, clubbing or edema. Strength is 5 out of 5 in extremities x4, no pathological reflexes. NEUROLOGICAL: Cranial nerves II through XII are grossly intact with no focal deficit elicited upon examination. No tremor. Principal Diagnosis Chronic abdominal pain Discharge Exam General:Alert and oriented, no acute distress but fatigued appearing HEENT: Normocephalic, moist oral mucosa, Resp:No increased resp effort, no resp distress Skin: Warm, dry Discharge Data Allergies Allergy/AdvReac Type Severity Reaction Status Date / Time diphenhydramine Allergy Severe Anaphylaxis Verified 11/10/23 15:30 promethazine Allergy Severe hives, Verified 11/10/23 15:30 throat swelling adhesive Allergy Intermediate Redness of Verified 11/10/23 15:30 Skin amoxicillin Allergy Intermediate RASH Verified 11/10/23 15:30 azithromycin [From Zithromax] Allergy Intermediate RASH/VOMITI Verified 11/10/23 15:30 NG calcium Allergy Intermediate SEE COMMENT Verified 11/10/23 15:30 [From VIACTIV Multi-Vitamin] cefazolin Allergy Intermediate rash Verified 11/10/23 15:30 Cephalosporins Allergy Intermediate HIVES Verified 11/10/23 15:30 clavulanic acid Allergy Intermediate HIVES Verified 11/10/23 15:30 ferric carboxymaltose Allergy Intermediate Rash Verified 11/10/23 15:30 [From Injectafer] folic acid Allergy Intermediate SEE COMMENT Verified 11/10/23 15:30 [From VIACTIV Multi-Vitamin] iron [From Venofer] Allergy Intermediate Muscle Pain Verified 11/10/23 15:30 multivitamin with minerals Allergy Intermediate SEE COMMENT Verified 11/10/23 1 5:30 [From VIACTIV Multi-Vitamin] Penicillins Allergy Intermediate HIVES Verified 11/10/23 15:30 prochlorperazine Allergy Intermediate HIVES Verified 11/10/23 15:30 sulfamethoxazole Allergy Intermediate RASH Verified 11/10/23 15:30 sumatriptan Allergy Intermediate RASH Verified 11/10/23 15:30 trimethoprim Allergy Intermediate RASH Verified 11/10/23 15:30 metoclopramide AdvReac Severe anxiety/ Verified 11/10/23 15:30 jittery morphine AdvReac Severe Severe Verified 11/10/23 15:30 abdominal Pain, sphincter of oddi spasms erythromycin base AdvReac Intermediate GI SYMPTOMS Verified 11/10/23 15:30 citalopram [From Celexa] AdvReac Unknown CAN'T Verified 11/10/23 15:30 REMEMBER Consultations 11/10/23 17:05 ED Decision to Admit Stat 11/10/23 19:05 Consult Pain Management Routine Ordered Studies 11/11/23 US pelvic complete Urgent Hospital Course (1) Generalized abdominal pain: (2) Abdominal pain, chronic, generalized: (3) On total parenteral nutrition (TPN): (4) Urinary dysfunction: Plan Pt is a 33 yo female with a past medical history most relevant for endometriosis, chronic abdominal pain on ketamine and opioids as well as TPN, and hx of superior mesenteric syndrome, hx adrenal insufficiency who presents to the hospital on 11/09 for increased pain and trouble urination. #Abdominal pain, generalized, chronic #Worsened chronic abdominal pain - hx SMA syndrome with chronic pain syndrome - on ketamine and ativan at home along with fentanyl patch per med list - last abdominal surgery was in Jun and for awhile did well but has had increasing pain recently - poor tolerance of po intake with nausea and pain has resulted in pt being on TPN at home - Dr. Hawkins consulted; no medication changes recommended - source of chronic abdominal pain unclear but likely a combination of multiple etiologies for this pt including scar tissue from repeat surgeries vs SMA vs endometriosis #Urinary difficulty - mother and pt note increasing difficulty with urination the last month or two - UA on admission wnl - bladder scan on admission 280 cc prior to voiding and an hour later she voided 500 cc - suspect the difficulty may be more related to decreased po intake of fluids leading to less urinations in a day vs less likely UTI given wnl UA vs other etiology as a result of multiple abdominal surgeries - as pt voided well here Discussed case with mother and patient today. No changes to meds per pain management. They both feel at this point she should go back home as she would be most comfortable there at this point. I agree with this plan. No medication changes were made this admission and she should follow-up with her primary care provider tomorrow or Thursday. Total Time Total Time Spent Total Time Spent (In Minutes): As per attending attestation Discharge Plan Discharge Items Patient Disposition: Home - Self-Care Reason For Visit: ABD PAIN Discharge Diagnosis: Chronic abdominal pain poor intake Activity: As commented below Activity Comment: As tolerated. Non-emergency contact: Primary Care Provider Call non-emergency contact if: you have any medication questions, your symptoms worsen, your pain is not controlled and your temperature is above 101 Follow-up/Referrals: Mariah Addison DO [Primary Care Provider] - 11/16/23 12:45 pm (With Dr. Lucrecia Gonzalez. ) Diet: Regular Addtl Attending Provider Instructions: You were admitted to the hospital for abdominal pain and concern for urinary retention. Thankfully, you were able to void well during your stay here, so some of the difficulty may be related to difficulty keeping hydrated. In terms of your abdominal pain, as we discussed, a large component of it can be secondary to scar tissue formation due to having multiple abdominal surgeries. This can be difficult to treat, as surgeries to clear this are temporary and more surgeries can cause more scar tissue forming. You should follow up with your primary care physician either tomorrow or Thursday for further guidance on any other options that may be available for chronic pain management. No medication changes were made this visit, so you should continue your home medications as you were prior to admission to the hospital. Pending Studies at Discharge: No Stand-Alone Forms: [facility] Order Prescriptions: Continued pyridoxine (vitamin B6) 50 mg tablet 50 mg PO QAM famotidine 40 mg tablet 20 mg PO BID Rx Instructions: 1/2 tablet dose hydrocortisone 10 mg tablet See Rx Instructions .ROUTE .COMPLEX Hold Instructions: Resume on 10/27/22. Please take hydrocortisone 25mg in the morning and 20mg in the afternoon until your thursday followup with endocrinology Rx Instructions: TAKE 15 MG EVERY MORNING AND 10 MG EVERY AFTERNOON dicyclomine 10 mg Capsule 20 mg PO Q6H PRN (Reason: Abdominal Pain) pantoprazole [Protonix] 40 mg tablet,delayed release (DR/EC) 40 mg PO QAM fexofenadine 180 mg Tablet 180 mg PO HS methocarbamol 750 mg Tablet 750 mg PO TID cholecalciferol (vitamin D3) [Vitamin D3] 25 mcg (1,000 unit) Capsule 50 mcg PO QAM duloxetine 60 mg capsule,delayed release(DR/EC) 60 mg PO QAM ondansetron 8 mg tablet,disintegrating 8 mg PO TID PRN (Reason: Nausea) fentanyl 75 mcg/hr patch 72 hour 1 patch transdermal Q72H Qty: 10 0RF lorazepam [Ativan] 2 mg/mL Solution 0.5 mg buccal QID PRN (Reason: Nausea) Qty: 100 0RF Rx Instructions: DIRECTED 0.5 MG (0.25 ML) bethanechol chloride 25 mg Tablet 12.5 mg PO BID PRN (Reason: urinary retention) Qty: 20 0RF levothyroxine [Synthroid] 50 mcg tablet 50 mcg PO QAM fludrocortisone 0.1 mg tablet 0.1 mg PO BID acetaminophen [Tylenol Extra Strength] 500 mg Tablet 1,000 mg PO Q6H PRN (Reason: Pain) multivit with min-folic acid [Multivitamin Gummies] 200 mcg Tablet,Chewable 2 tab PO HS turmeric 400 mg Capsule 400 mg PO HS Rx Instructions: Takces 1 cap daily coenzyme Q10 [CoQ-10] 100 mg capsule 100 mg PO PM Rx Instructions: Takes 1 tab daily (DME) Enema Bottle Bottle See Rx Instructions .Route Qty: 72 0RF Rx Instructions: As directed gabapentin 250 mg/5 mL solution 900 mg PO TID calcium carbonate 500 mg calcium (1,250 mg) Tablet 250 mg PO QPM norethindrone (contraceptive) 0.35 mg tablet 0.35 mg PO QAM oxycodone 20 mg/mL Concentrate 20 mg PO QID PRN (Reason: Pain) Discharge Orders: Discharge Order (Routine); Ordered 11/12/23 Ordered By: Gale Jurado Admission Data Admit Date/Time: 11/10/23 18:20 Attending Provider: Catrina Turner Admit Provider: Benji Weldon Primary Care Provider: Mariah Addison Other Providers: Benji Weldon; Jose De Jesus Hawkins Other Interventions: Discharge Summary Assessment (RN) Last Done: 11/12/23 11:50 Supervising Physician Co-Signing Physician Notes Attending Physician Supervision Note: I verified the solorzano history and physical, reviewed labs and image studies and agree with findings and care plan noted above. Patient left before I saw her. Not seen by me on day of discharge. Resident Activity Tracking Resident Involvement: Resident Care Provided Care Provided: Adult Hospital Medicine
[2023-11-12] MEDS ORDERED: [UNRECOGNIZED DRUG - REMARK] ONE (15:00)
[2023-11-12] MEDS ORDERED: [UNRECOGNIZED DRUG - REMARK] SCH (15:00)
[2023-11-12] MEDS ORDERED: [UNRECOGNIZED DRUG - OTHER] IV SCH (21:00)
== END 2023-11-12 12:35 | disposition home or self-care (01) | DRG 92 ==
LOC: ED 13:28 → SUATTDRO 18:20 → EDINP 18:20 → 1E 21:18

== ENCOUNTER 2023-12-02 23:40 | Inpatient (IN) ==
[2023-12-03] MEDS ORDERED: VANCOMYCIN CONSULT ACTIVE PRN (00:03)
--- NOTE | 2023-12-03 00:22 | Surgery Consultation ---
Date of Consultation December 03, 2023 Assessment & Plan (1) Bacteremia: I discussed with the treating clinician the emergency department the patient is being admitted on the medical service. From surgery perspective we recommend the following: Antibiotics are to be initiated. The treating clinician the emergency department has initiated vancomycin due to the gram-positive cocci noted on blood cultures. Repeat labs and repeat blood cultures have been ordered. Antibiotics be further tailored based on pending lab and culture results Recommend hydrating with IV fluids Due to the patient's history of multiple a ports and the need for long-term intravenous access, it may be beneficial to enlist the help of infectious disease Would recommend keeping the patient n.p.o. for the present time. She will be evaluated the morning of 12/04/2023 to determine if her existing port will need to be removed we will merely wait to monitor her clinical response to antibiotics as well as input from the infectious disease service Additional recommendations to be forthcoming based on her clinical course as it unfolds History of Present Illness Reason for Consultation: Bacteremia History of Present Illness This is a 33-year-old female who was directed to the emergency department because of positive blood cultures. The patient notes that she has had multiple a port placed for intravenous access. She has had ports placed in both the left subclavian and the right subclavian positions. She notes that her most recent port was placed by Dr. Guillermo Rodgers of [facility] general surgery in May 2022. She notes that the port is used primarily for TPN and routine blood work. The patient notes that over the past 24 to 48 hours she has noted some increasing soreness/pain of her a port. When she began experiencing the worsening pain of her port she de accessed the port and upon doing so she noted a odd discharge/drainage from the port which was cream-colored in nature. She said that she then was able to express some additional such drainage from her port. She specifically denies any fevers, shakes, or chills she currently denies any abdominal pain but does report some intermittent nausea which she said is not unusual for her. This patient is well-known to [facility] as patient has chronic intermittent abdominal pain related to an underlying history of superior mesenteric artery syndrome. The patient has had multiple admissions to [facility] due to intractable abdominal pain she has had multiple surgeries related to her SMA syndrome. When the patient did begin experiencing pain at her port she contacted the office of Dr. Guillermo Rodgers and was actually seen in the office. She had an ultrasound done at an outpatient [facility] facility. She was able to show me the report from this study which showed the patient had edema of the tissue surrounding her port with no visible fluid collection. In addition, the patient had blood cultures drawn at [facility] on 12/02/2023. The lab notified the on-call surgical provider that patient had 3 out of 4 blood cultures positive for gram-positive cocci in clusters. The patient also had a CBC performed which showed slight elevation of her white blood cell count at 12.0. Her hemoglobin and hematocrit as well as the platelet count were within normal range. Coagulation studies performed revealed an INR of 1.0. A chemistry profile showed the patient's sodium was 140 with a potassium of 2.9. BUN and creatinine were both within the normal range. Her magnesium was noted to be normal as was her phosphorus. At the time of my interview the patient was resting comfortably bed and she was in no distress. Allergies Allergy/AdvReac Type Severity Reaction Status Date / Time diphenhydramine Allergy Severe Anaphylaxis Verified 12/02/23 10:56 promethazine Allergy Severe hives, Verified 12/02/23 10:56 throat swelling adhesive Allergy Intermediate Redness of Verified 12/02/23 10:56 Skin amoxicillin Allergy Intermediate RASH Verified 12/02/23 10:56 azithromycin [From Zithromax] Allergy Intermediate RASH/VOMITI Verified 12/02/23 10:56 NG calcium Allergy Intermediate SEE COMMENT Verified 12/02/23 10:56 [From VIACTIV Multi-Vitamin] cefazolin Allergy Intermediate rash Verified 12/02/23 10:56 Cephalosporins Allergy Intermediate HIVES Verified 12/02/23 10:56 clavulanic acid Allergy Intermediate HIVES Verified 12/02/23 10:56 ferric carboxymaltose Allergy Intermediate Rash Verified 12/02/23 10:56 [From Injectafer] folic acid Allergy Intermediate SEE COMMENT Verified 12/02/23 10:56 [From VIACTIV Multi-Vitamin] iron [From Venofer] Allergy Intermediate Muscle Pain Verified 12/02/23 10:56 multivitamin with minerals Allergy Intermediate SEE COMMENT Verified 12/02/23 10:56 [From VIACTIV Multi-Vitamin] Penicillins Allergy Intermediate HIVES Verified 12/02/23 10:56 prochlorperazine Allergy Intermediate HIVES Verified 12/02/23 10:56 sulfamethoxazole Allergy Intermediate RASH Verified 12/02/23 10:56 sumatriptan Allergy Intermediate RASH Verified 12/02/23 10:56 trimethoprim Allergy Intermediate RASH Verified 12/02/23 10:56 metoclopramide AdvReac Severe anxiety/ Verified 12/02/23 10:56 jittery morphine AdvReac Severe Severe Verified 12/02/23 10:56 abdominal Pain, sphincter of oddi spasms erythromycin base AdvReac Intermediate GI SYMPTOMS Verified 12/02/23 10:56 citalopram [From Celexa] AdvReac Unknown CAN'T Verified 12/02/23 10:56 REMEMBER Home Medications Medication Instructions Recorded Confirmed Type dicyclomine 10 mg capsule 20 mg PO Q6H PRN Abdominal Pain 03/07/18 12/02/23 History pantoprazole 40 mg tablet,delayed 40 mg PO QAM 09/08/19 12/02/23 History release (Protonix) famotidine 40 mg tablet 20 mg PO BID 11/28/19 12/02/23 History hydrocortisone 10 mg tablet See Rx Instructions .Route .COMPLEX 02/07/20 12/02/23 History fexofenadine 180 mg tablet 180 mg PO HS 10/09/20 12/02/23 History fludrocortisone 0.1 mg tablet 0.1 mg PO BID 12/12/20 12/02/23 History acetaminophen 500 mg tablet 1,000 mg PO Q6H PRN Pain 06/13/21 12/02/23 History (Tylenol Extra Strength) multivitamin with minerals-folic 2 tab PO HS 06/13/21 12/02/23 History acid 200 mcg chewable tablet (Multivitamin Gummies) turmeric 400 mg capsule 400 mg PO HS 06/13/21 12/02/23 History empty container (Enema Misc Bottle) #72 ea 01/16/22 12/02/23 Rx cholecalciferol (vitamin D3) 25 50 mcg PO QAM 04/07/22 12/02/23 History mcg (1,000 unit) capsule (Vitamin D3) duloxetine 60 mg capsule,delayed 60 mg PO QAM 04/07/22 12/02/23 History release methocarbamol 750 mg tablet 750 mg PO TID 04/07/22 12/02/23 History coenzyme Q10 100 mg capsule 100 mg PO PM 07/22/22 12/02/23 History (CoQ-10) pyridoxine (vitamin B6) 50 mg 50 mg PO QAM 07/22/22 12/02/23 History tablet ondansetron 8 mg disintegrating 8 mg PO TID PRN Nausea 10/06/22 12/02/23 History tablet fentanyl 75 mcg/hr transdermal 1 patch transdermal Q72H #10 ea 10/23/22 12/02/23 Rx patch lorazepam 2 mg/mL injection 0.5 mg (0.25 mL) buccal QID PRN 12/04/22 12/02/23 Rx solution (Ativan) Nausea #100 mL bethanechol chloride 25 mg tablet 12.5 mg (1/2 x 25 mg) PO BID PRN 12/05/22 12/02/23 Rx urinary retention #20 tabs levothyroxine 50 mcg tablet 50 mcg PO QAM 03/04/23 12/02/23 History (Synthroid) gabapentin 250 mg/5 mL oral 900 mg PO TID 03/10/23 12/02/23 History solution oxycodone 20 mg/mL oral concentrate 20 mg PO QID PRN Pain 08/05/23 12/02/23 History calcium carbonate 250 mg PO QPM 11/10/23 12/02/23 History norethindrone (contraceptive) 0.35 0.35 mg PO QAM 11/10/23 12/02/23 History mg tablet Patient History Medical History Endometrioma of ovary Urinary dysfunction Abdominal pain Pain disorder Generalized abdominal pain Hx of Clostridium difficile infection 5 years ago, tx. 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 carroll, [facility] Spinal cord stimulator status trial implanted 03/02/23, in dr. ramírez's office>advised to bring remote Chronic, continuous use of opioids Difficult intravenous access Intractable pain Abdominal pain Elevated lipase Transaminitis Colitis Chronic malnutrition Gastrostomy tube in place Intussusception hx PICC (peripherally inserted central catheter) in place TPN Pancreatitis hx Sphincter of Oddi dysfunction DECREASED GI MOTILITY Uses feeding tube gastroparesis and decreased GI motility can not tolerate feeding and uses TPN Epigastric abdominal pain Dehydration "kind of always dehydrated" Nausea Surgical History History of lysis of adhesions History of liver biopsy 2023 Hx of exploratory laparotomy History of esophagogastroduodenoscopy (EGD) Ileostomy status Hx of ileostomy Hx of colonoscopy during procedure perforated small bowel 10/27/2019 at [facility], subsequent repair of duodenal area. History of bowel resection Part of duodenum removed due to necrosis; done at [facility] 2019 History of removal of Port-a-Cath 10/13/[address] Geiger, [facility], due to bacteremia/sepsis.; "inserted and removed multiple times" History of hysterectomy 09/27/19 History of appendectomy History of vascular access device 2017; implanted and removed "several" times Family History Father Hyperlipidemia Other No significant family history Social History Smoking Status: Never smoker Second Hand Exposure: No; Do You Dip or Chew Tobacco: No; Hx Alcohol Use: No Hx Substance Use: No Preferred Language: Polish Communication Ability: Effective Visual Impairment: No Limitations Hearing Ability: Normal Stable Cleaner Required: No Beliefs That Will Affect Care: None marital status: Single Current Living Situation: Parent Current Living Situation Comment: Patient lives at home with both parents current occupational status: unemployed current occupation: completed 4-year degree at [employer] How many Children do You have: 0 Feels Safe at Home: Yes Diet: regular Sexual Activity Comment: not sexually active Assistive Devices: Crutches and Other Review of Systems Review of Systems: All systems reviewed & are unremarkable except as noted in HPI & below Physical Exam Physical Exam: The patient was noted to have a well-healed incision in the left subclavian area from a previous a port. The patient was noted to have a well-healed incision over an existing right subclavian a port. At the time of my interview there is no crepitus noted in the soft tissue. There is minimal erythema over this port. There is no warmth over the area. The area was tender to palpation. At the time of my exam there is no drainage noted. Constitutional: WD/WN, vitals as above Eyes: no conjunctival abnormality ENMT: Ears: no hearing impairment and no external ear abnormality Mouth: no oropharynx abnormality Neck: trachea midline Respiratory: normal respiratory effort; no respiratory distress and no labored breathing Cardiovascular: Rate/Rhythm: regular rate and regular rhythm Gastrointestinal (Abdomen): Soft and nondistended. Neurologic: moves all extremities Psychiatric: A+Ox3, euthymic affect Results & Data Vital Signs (Past 12 Hours) Vital Signs Pulse Resp BP Pulse Ox O2 Del Method 12/03/23 00:15 96 H 12/02/23 23:48 118 H 18 129/87 96 Room Air PG Care Time/CCT Total # of Minutes Spent Total Time Spent with Patient: Total time spent is greater than 50% in coordination of care (as documented) at patient's floor/unit and/or counseling patient: Coding Level of Care Code 02335 IN/OBS CONSULT LVL 5,80M Diagnoses Bacteremia R78.81
--- NOTE | 2023-12-03 00:45 | History & Physical Report ---
Date of Service December 03, 2023 Assessment & Plan (1) Gram-positive bacteremia: (2) Methicillin susceptible Staphylococcus aureus infection: (3) Central line infection: (4) Iron deficiency anemia: (5) Witnessed seizure-like activity: (6) Abdominal pain, chronic, generalized: (7) Sinus tachycardia: (8) Secondary hyperparathyroidism: (9) Gastroparesis: (10) Urinary retention: (11) Hemorrhagic cystitis: (12) Endometriosis: Evelyn Quezada is a 33F with PMH of pseudoseizures, gastroparesis w/ chronic abdominal pain s/p PEG tube & ostomy placement, chronic pain syndrome (previously requiring ketamine infusion), iron deficiency anemia, chronic migraines, seconda ry hyperparathyroidism, hemorrhagic cystitis, and endometriosis who presents at recommendation of general surgery for gram positive bacteremia secondary to port infection. Gram Positive Bacteremia Port Infection (R Chest) - Moderate erythema w/o expressible purulence at port site - Leukocytosis on presentation w/ tachycardia (though longstanding) Start fluid resuscitation w/ mIVF @ 100 cc/hr - Blood cultures 12/01 indicative of gram positive bacteremia Positive for staph aureus, MRSA negative - Received 2 doses of Keflex as outpatient, started Rocephin IV inpatient Patient has documented Cephalosporin allergy, but has been taking Cephalosporin as outpatient w/o issue - Repeat blood cultures pending - General surgery consulted for management of port - Infectious disease consulted for advisement on infection in complex case (PEG tube, ostomy, port, etc) Chronic Pain Syndrome | Pseudoseizures - Witnessed pseudoseizure in ED, noted to be a/w chronic pain, resolved with auditory support - Continue home medications Lorazepam 0.5 mg QID PRN Oxycodone 20 mg QID PRN Fentanyl patch 75 mcg Q 72H Gabapentin 900 mg PO TID Duloxetine 60 mg PO QAM - Additional Dilaudid 1 mg Q4h PRN for breakthrough pain Patient preference to avoid ICU/Ketamine at this time - Continue antinausea treatment with Zofran and Ativan PRN Chronic Conditions - Gastroparesis: continue home medications, PEG and ostomy care inpatient, continue PPI - Iron Deficiency Anemia: continue supplementation - Secondary Hyperparathyroidism: continue home medications - Hemorrhagic cystitis: continue bethanechol PRN Code: Full Diet: Regular IVF: Deferred at this time Dispo: PCU Consults: ID, Gen Surg, Travel Ot for TPN History of Present Illness Chief Complaint: Port Infection Bacteremia Primary Care Provider: Mariah Addison DO Quezada is a 33F with PMH of pseudoseizures, gastroparesis w/ chronic abdominal pain s/p PEG tube & ostomy placement, chronic pain syndrome (previously requiring ketamine infusion), iron deficiency anemia, chronic migraines, secondary hyperparathyroidism, hemorrhagic cystitis, and endometriosis who presents at recommendation of general surgery for gram positive bacteremia secondary to port infection. ED Course: None HPI: - Patient notes that 2 days ago she started having discomfort at her port site (R chest) - The following day she experienced yellow, purulent drainage from the port itself - She contacted her surgeon who adonis blood cultures and started her on Keflex TID - Patient had taken 2 doses of the cephalosporin when she was contacted by general surgery to notify her of positive blood cultures - She was advised to present to the ED - Patient has chronic pain at baseline, which commonly provokes pseudoseizures (witnessed during visit) - Patient denies any new chest pain, dyspnea, abdominal pain, headaches, or bowel/bladder changes - Her home regimen has been mildly ineffective at controlling her current pain, but she notes strongly that she would prefer to stay out of ICU/off Ketamine at this time - Patient denies fevers or chills - She has not experienced any rashes or skin lesions - Patient expressed a desire to keep her port if possible Allergies Allergy/AdvReac Type Severity Reaction Status Date / Time diphenhydramine Allergy Severe Anaphylaxis Verified 12/03/23 01:23 promethazine Allergy Severe hives, Verified 12/03/23 01:23 throat swelling adhesive Allergy Intermediate Redness of Verified 12/03/23 01:23 Skin amoxicillin Allergy Intermediate RASH Verified 12/03/23 01:23 azithromycin [From Zithromax] Allergy Intermediate RASH/VOMITI Verified 12/03/23 01:23 NG calcium Allergy Intermediate SEE COMMENT Verified 12/03/23 01:23 [From VIACTIV Multi-Vitamin] cefazolin Allergy Intermediate rash Verified 12/03/23 01:23 Cephalosporins Allergy Intermediate HIVES Verified 12/03/23 01:23 clavulanic acid Allergy Intermediate HIVES Verified 12/03/23 01:23 ferric carboxymaltose Allergy Intermediate Rash Verified 12/03/23 01:23 [From Injectafer] folic acid Allergy Intermediate SEE COMMENT Verified 12/03/23 01:23 [From VIACTIV Multi-Vitamin] iron [From Venofer] Allergy Intermediate Muscle Pain Verified 12/03/23 01:23 multivitamin with minerals Allergy Intermediate SEE COMMENT Verified 12/03/23 01:23 [From VIACTIV Multi-Vitamin] Penicillins Allergy Intermediate HIVES Verified 12/03/23 01:23 prochlorperazine Allergy Intermediate HIVES Verified 12/03/23 01:23 sulfamethoxazole Allergy Intermediate RASH Verified 12/03/23 01:23 sumatriptan Allergy Intermediate RASH Verified 12/03/23 01:23 trimethoprim Allergy Intermediate RASH Verified 12/03/23 01:23 metoclopramide AdvReac Severe anxiety/ Verified 12/03/23 01:23 jittery morphine AdvReac Severe Severe Verified 12/03/23 01:23 abdominal Pain, sphincter of oddi spasms erythromycin base AdvReac Intermediate GI SYMPTOMS Verified 12/03/23 01:23 citalopram [From Celexa] AdvReac Unknown CAN'T Verified 12/03/23 01:23 REMEMBER Home Medications Medication Instructions Recorded Confirmed Type dicyclomine 10 mg capsule 20 mg PO Q6H PRN Abdominal Pain 03/07/18 12/03/23 History pantoprazole 40 mg tablet,delayed 40 mg PO QAM 09/08/19 12/03/23 History release (Protonix) famotidine 40 mg tablet 20 mg PO BID 11/28/19 12/03/23 History hydrocortisone 10 mg tablet See Rx Instructions .Route .COMPLEX 02/07/20 12/03/23 History fexofenadine 180 mg tablet 180 mg PO HS 10/09/20 12/03/23 History fludrocortisone 0.1 mg tablet 0.1 mg PO BID 12/12/20 12/03/23 History acetaminophen 500 mg tablet 1,000 mg PO Q6H PRN Pain 06/13/21 12/03/23 History (Tylenol Extra Strength) multivitamin with minerals-folic 2 tab PO HS 06/13/21 12/03/23 History acid 200 mcg chewable tablet (Multivitamin Gummies) turmeric 400 mg capsule 400 mg PO HS 06/13/21 12/03/23 History empty container (Enema Misc Bottle) #72 ea 01/16/22 12/03/23 Rx cholecalciferol (vitamin D3) 25 50 mcg PO QAM 04/07/22 12/03/23 History mcg (1,000 unit) capsule (Vitamin D3) duloxetine 60 mg capsule,delayed 60 mg PO QAM 04/07/22 12/03/23 History release methocarbamol 750 mg tablet 750 mg PO TID 04/07/22 12/03/23 History coenzyme Q10 100 mg capsule 100 mg PO PM 07/22/22 12/03/23 History (CoQ-10) pyridoxine (vitamin B6) 50 mg 50 mg PO QAM 07/22/22 12/03/23 History tablet ondansetron 8 mg disintegrating 8 mg PO TID PRN Nausea 10/06/22 12/03/23 History tablet fentanyl 75 mcg/hr transdermal 1 patch transdermal Q72H #10 ea 10/23/22 12/03/23 Rx patch lorazepam 2 mg/mL injection 0.5 mg (0.25 mL) buccal QID PRN 12/04/22 12/03/23 Rx solution (Ativan) Nausea #100 mL bethanechol chloride 25 mg tablet 12.5 mg (1/2 x 25 mg) PO BID PRN 12/05/22 12/03/23 Rx urinary retention #20 tabs levothyroxine 50 mcg tablet 50 mcg PO QAM 03/04/23 12/03/23 History (Synthroid) gabapentin 250 mg/5 mL oral 900 mg PO TID 03/10/23 12/03/23 History solution oxycodone 20 mg/mL oral concentrate 20 mg PO QID PRN Pain 08/05/23 12/03/23 History calcium carbonate 250 mg PO QPM 11/10/23 12/03/23 History norethindrone (contraceptive) 0.35 0.35 mg PO QAM 11/10/23 12/03/23 History mg tablet Past Med/Surg History Problem List MSSA bacteremia Port-A-Cath in place Gram-positive bacteremia Positive blood culture (Acute) Bacteremia Discharge planning issues DVT prophylaxis Methicillin susceptible Staphylococcus aureus infection Central line infection Pseudomonas aeruginosa infection Infection due to Port-A-Cath (Acute) Encounter for pre-operative examination Visceral hyperalgesia Palliative care encounter Right ankle sprain (Acute) Encounter for care related to vascular access port Iron deficiency anemia Syncope Seizure-like activity Witnessed seizure-like activity (Acute) Hypokalemia Malnutrition Transaminitis B12 deficiency Folate deficiency Intestinal motility disorder (Chronic) Candidiasis of mouth and esophagus Severe protein-calorie malnutrition Abdominal pain, chronic, generalized (Chronic) Adrenal insufficiency On total parenteral nutrition (TPN) (Chronic) Acute kidney insufficiency Tachycardia (Acute) Acute dehydration (Acute) Epigastric abdominal pain (Acute) Chronic migraine without aura Hypokalemia Hypomagnesemia Hypokalemia Enteritis (Acute) Hypophosphatemia (Acute) Jejunal intussusception Sinus tachycardia Hypotension Secondary hyperparathyroidism Hypocalcemia Diarrhea (Acute) Hypophosphatemia (Acute) Anemia Gastroparesis Sphincter of Oddi spasm Fever Hypokalemia Vomiting (Acute) Urinary retention (Acute) UTI (urinary tract infection) (Acute) resolved Post-op pain (Acute) Head injury (Acute) Concussion (Acute) Bilious vomiting (Acute) Allergic reaction caused by a drug Allergic reaction Abnormal MRI, kidney (Acute) Acute right flank pain (Acute) Right flank pain (Acute) Bilateral flank pain (Acute) Appendicitis, acute (Acute 11/07/13) Asthma (Chronic) Hemorrhagic cystitis (Acute) hx Hypotension S/P cholecystectomy 2014 Chronic migraine (Chronic) Endometriosis has had 3 surgeries for this. Last surgery 2019 Diversion colitis Medical History Endometrioma of ovary Urinary dysfunction Abdominal pain Pain disorder Generalized abdominal pain Hx of Clostridium difficile infection 5 years ago, tx. 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 carroll, [facility] Spinal cord stimulator status trial implanted 03/02/23, in dr. ramírez's office>advised to bring remote Chronic, continuous use of opioids Difficult intravenous access Intractable pain Abdominal pain Elevated lipase Transaminitis Colitis Chronic malnutrition Gastrostomy tube in place Intussusception hx PICC (peripherally inserted central catheter) in place TPN Pancreatitis hx Sphincter of Oddi dysfunction DECREASED GI MOTILITY Uses feeding tube gastroparesis and decreased GI motility can not tolerate feeding and uses TPN Epigastric abdominal pain Dehydration "kind of always dehydrated" Nausea Surgical History (Updated 12/03/23 @ 15:04 by Lisa Botello RN) History of removal of Port-a-Cath (12/03/23) Port Removal(Right) - Jr Collins DO, FACS History of lysis of adhesions History of liver biopsy 2023 Hx of exploratory laparotomy History of esophagogastroduodenoscopy (EGD) Ileostomy status Hx of ileostomy Hx of colonoscopy during procedure perforated small bowel 10/27/2019 at [facility], subsequent repair of duodenal area. History of bowel resection Part of duodenum removed due to necrosis; done at [facility] 2019 History of removal of Port-a-Cath 10/13/[address] Geiger, [facility], due to bacteremia/sepsis.; "inserted and removed multiple times" History of hysterectomy 09/27/19 History of appendectomy History of vascular access device 2017; implanted and removed "several" times Family History Father Hyperlipidemia Other No significant family history Social History Smoking Status: Never smoker Second Hand Exposure: No; Do You Dip or Chew Tobacco: No; Hx Alcohol Use: No Hx Substance Use: No Preferred Language: Chilean Communication Ability: Effective Visual Impairment: No Limitations Hearing Ability: Normal Covering Machine Operator Required: No Beliefs That Will Affect Care: Temple marital status: Single Current Living Situation: Parent Current Living Situation Comment: Patient lives at home with both parents current occupational status: unemployed current occupation: completed 4-year degree at [employer] How many Children do You have: 0 Other Information That Helps Us Care for You: No Feels Safe at Home: Yes Safety Concerns: Feels Safe At This Time Diet: regular Sexual Activity Comment: not sexually active Assistive Devices: Crutches and Wheelchair Physical Exam Physical Exam: Gen: NAD, alert, interactive, tearful HEENT: Supple, no LAD, no thyromegaly, no JVD Resp:Non-labored, no wheezing/rhonchi/rales, CTAB CV: tachycardic, regular rhythm, normal S1/S2, no M/R/G Abd: Soft, non-distended, no TTP, mild erythema at base of PEG tube (chronic), ostomy intact and draining w/ healthy pink stoma, no masses Extr: 2+ dp bilaterally, no edema Skin: No rashes, moderate erythema surrounding R chest port site, no expressible purulent fluid 0110 - 60 second pseudoseizure witnessed , responded well to verbal stimuli and conversations about dog, vitals unchanged during episode Results & Data Results & Data Vital Signs (Past 12 Hours) Vital Signs Pulse Resp BP Pulse Ox O2 Del Method 12/03/23 00:15 96 H 12/02/23 23:48 118 H 18 129/87 96 Room Air Supervising Physician Co-Signing Physician Notes Attending addendum: I have physically seen this patient, have supervised the medical residents activities, and agree with the H&P unless as otherwise noted. Assessment and Plan: Gram-positive bacteremia- Follow culture and sensitivities PCR positive for Staph aureus, MRSA negative Central line will likely need to be removed Had received 2 doses of Keflex as an outpatient Placed on ceftriaxone 2 g IV daily General surgery consulted for management of port Consult infectious disease Chronic pain syndrome/pseudoseizures- Did have 1 witnessed Pseudoseizure in the ED Continue usual medications: Lorazepam 0.5 mg p.o. 4 times daily as needed, oxycodone 20 mg p.o. 4 times daily as needed, fentanyl patch 75 mcg every 72 hours, gabapentin 900 mg p.o. 3 times daily and duloxetine 60 mg p.o. every mo rning Dilaudid 1 mg IV every 4 hours as needed breakthrough pain No ICU/ketamine dosing needed at this time, and patient agrees Zofran 4 mg IV every 6 hours as needed Remaining orders and notations as noted Resident Activity Tracking Resident Involvement: Resident Care Provided Care Provided: Adult Hospital Medicine
[2023-12-03] MEDS ORDERED: LORazepam 2 MG/1 ML VIAL IV PRN (01:01)
--- NOTE | 2023-12-03 01:08 | Emergency Department Note ---
History of Present Illness General Chief complaint: Infection Stated complaint: DOC REF, ABN LABS, ADMIT REQ, SEPSIS/INFECTION Time Seen by Provider: 12/02/23 23:53 History of Present Illness Maximum Pain Intensity: 6 This 33-year-old female well-known to this ER presents to the ER for positive blood cultures called in by surgery. Patient apparently had her port accessed today by surgery for blood cultures and had gram-positive cocci and was sent in. Patient denies any fever or chills. She states the site is a little itchy. No other concerns per patient. She is afebrile here. Home Medications Medication Instructions Recorded Confirmed Type dicyclomine 10 mg capsule 20 mg PO Q6H PRN Abdominal Pain 03/07/18 12/03/23 History pantoprazole 40 mg tablet,delayed 40 mg PO QAM 09/08/19 12/03/23 History release (Protonix) famotidine 40 mg tablet 20 mg PO BID 11/28/19 12/03/23 History hydrocortisone 10 mg tablet See Rx Instructions .Route .COMPLEX 02/07/20 12/03/23 History fexofenadine 180 mg tablet 180 mg PO HS 10/09/20 12/03/23 History fludrocortisone 0.1 mg tablet 0.1 mg PO BID 12/12/20 12/03/23 History acetaminophen 500 mg tablet 1,000 mg PO Q6H PRN Pain 06/13/21 12/03/23 History (Tylenol Extra Strength) multivitamin with minerals-folic 2 tab PO HS 06/13/21 12/03/23 History acid 200 mcg chewable tablet (Multivitamin Gummies) turmeric 400 mg capsule 400 mg PO HS 06/13/21 12/03/23 History empty container (Enema Misc Bottle) #72 ea 01/16/22 12/03/23 Rx cholecalciferol (vitamin D3) 25 50 mcg PO QAM 04/07/22 12/03/23 History mcg (1,000 unit) capsule (Vitamin D3) duloxetine 60 mg capsule,delayed 60 mg PO QAM 04/07/22 12/03/23 History release methocarbamol 750 mg tablet 750 mg PO TID 04/07/22 12/03/23 History coenzyme Q10 100 mg capsule 100 mg PO PM 07/22/22 12/03/23 History (CoQ-10) pyridoxine (vitamin B6) 50 mg 50 mg PO QAM 07/22/22 12/03/23 History tablet ondansetron 8 mg disintegrating 8 mg PO TID PRN Nausea 10/06/22 12/03/23 History tablet fentanyl 75 mcg/hr transdermal 1 patch transdermal Q72H #10 ea 10/23/22 12/03/23 Rx patch lorazepam 2 mg/mL injection 0.5 mg (0.25 mL) buccal QID PRN 12/04/22 12/03/23 Rx solution (Ativan) Nausea #100 mL bethanechol chloride 25 mg tablet 12.5 mg (1/2 x 25 mg) PO BID PRN 12/05/22 12/03/23 Rx urinary retention #20 tabs levothyroxine 50 mcg tablet 50 mcg PO QAM 03/04/23 12/03/23 History (Synthroid) gabapentin 250 mg/5 mL oral 900 mg PO TID 03/10/23 12/03/23 History solution oxycodone 20 mg/mL oral concentrate 20 mg PO QID PRN Pain 08/05/23 12/03/23 History calcium carbonate 250 mg PO QPM 11/10/23 12/03/23 History norethindrone (contraceptive) 0.35 0.35 mg PO QAM 11/10/23 12/03/23 History mg tablet Allergies Allergy/AdvReac Type Severity Reaction Status Date / Time diphenhydramine Allergy Severe Anaphylaxis Verified 12/03/23 01:23 promethazine Allergy Severe hives, Verified 12/03/23 01:23 throat swelling adhesive Allergy Intermediate Redness of Verified 12/03/23 01:23 Skin amoxicillin Allergy Intermediate RASH Verified 12/03/23 01:23 azithromycin [From Zithromax] Allergy Intermediate RASH/VOMITI Verified 12/03/23 01:23 NG calcium Allergy Intermediate SEE COMMENT Verified 12/03/23 01:23 [From VIACTIV Multi-Vitamin] cefazolin Allergy Intermediate rash Verified 12/03/23 01:23 Cephalosporins Allergy Intermediate HIVES Verified 12/03/23 01:23 clavulanic acid Allergy Intermediate HIVES Verified 12/03/23 01:23 ferric carboxymaltose Allergy Intermediate Rash Verified 12/03/23 01:23 [From Injectafer] folic acid Allergy Intermediate SEE COMMENT Verified 12/03/23 01:23 [From VIACTIV Multi-Vitamin] iron [From Venofer] Allergy Intermediate Muscle Pain Verified 12/03/23 01:23 multivitamin with minerals Allergy Intermediate SEE COMMENT Verified 12/03/23 01:23 [From VIACTIV Multi-Vitamin] Penicillins Allergy Intermediate HIVES Verified 12/03/23 01:23 prochlorperazine Allergy Intermediate HIVES Verified 12/03/23 01:23 sulfamethoxazole Allergy Intermediate RASH Verified 12/03/23 01:23 sumatriptan Allergy Intermediate RASH Verified 12/03/23 01:23 trimethoprim Allergy Intermediate RASH Verified 12/03/23 01:23 metoclopramide AdvReac Severe anxiety/ Verified 12/03/23 01:23 jittery morphine AdvReac Severe Severe Verified 12/03/23 01:23 abdominal Pain, sphincter of oddi spasms erythromycin base AdvReac Intermediate GI SYMPTOMS Verified 12/03/23 01:23 citalopram [From Celexa] AdvReac Unknown CAN'T Verified 12/03/23 01:23 REMEMBER Past Med/Surg History Problem List (Updated 12/03/23 @ 02:23 by Jodie Max DO) Gram-positive bacteremia Positive blood culture (Acute) Bacteremia Discharge planning issues DVT prophylaxis Methicillin susceptible Staphylococcus aureus infection Central line infection Pseudomonas aeruginosa infection Infection due to Port-A-Cath (Acute) Encounter for pre-operative examination Visceral hyperalgesia Palliative care encounter Right ankle sprain (Acute) Encounter for care related to vascular access port Iron deficiency anemia Syncope Seizure-like activity Witnessed seizure-like activity (Acute) Hypokalemia Malnutrition Transaminitis B12 deficiency Folate deficiency Intestinal motility disorder (Chronic) Candidiasis of mouth and esophagus Severe protein-calorie malnutrition Abdominal pain, chronic, generalized (Chronic) Adrenal insufficiency On total parenteral nutrition (TPN) (Chronic) Acute kidney insufficiency Tachycardia (Acute) Acute dehydration (Acute) Epigastric abdominal pain (Acute) Chronic migraine without aura Hypokalemia Hypomagnesemia Hypokalemia Enteritis (Acute) Hypophosphatemia (Acute) Jejunal intussusception Sinus tachycardia Hypotension Secondary hyperparathyroidism Hypocalcemia Diarrhea (Acute) Hypophosphatemia (Acute) Anemia Gastroparesis Sphincter of Oddi spasm Fever Hypokalemia Vomiting (Acute) Urinary retention (Acute) UTI (urinary tract infection) (Acute) resolved Post-op pain (Acute) Head injury (Acute) Concussion (Acute) Bilious vomiting (Acute) Allergic reaction caused by a drug Allergic reaction Abnormal MRI, kidney (Acute) Acute right flank pain (Acute) Right flank pain (Acute) Bilateral flank pain (Acute) Appendicitis, acute (Acute 11/07/13) Asthma (Chronic) Hemorrhagic cystitis (Acute) hx Hypotension S/P cholecystectomy 2014 Chronic migraine (Chronic) Endometriosis has had 3 surgeries for this. Last surgery 2018 Diversion colitis Medical History Endometrioma of ovary Urinary dysfunction Abdominal pain Pain disorder Generalized abdominal pain Hx of Clostridium difficile infection 5 years ago, tx. 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 carroll, [facility] Spinal cord stimulator status trial implanted 03/02/23, in dr. ramírez's office>advised to bring remote Chronic, continuous use of opioids Difficult intravenous access Intractable pain Abdominal pain Elevated lipase Transaminitis Colitis Chronic malnutrition Gastrostomy tube in place Intussusception hx PICC (peripherally inserted central catheter) in place TPN Pancreatitis hx Sphincter of Oddi dysfunction DECREASED GI MOTILITY Uses feeding tube gastroparesis and decreased GI motility can not tolerate feeding and uses TPN Epigastric abdominal pain Dehydration "kind of always dehydrated" Nausea Surgical History History of lysis of adhesions History of liver biopsy 2023 Hx of exploratory laparotomy History of esophagogastroduodenoscopy (EGD) Ileostomy status Hx of ileostomy Hx of colonoscopy during procedure perforated small bowel 10/27/2019 at [facility], subsequent repair of duodenal area. History of bowel resection Part of duodenum removed due to necrosis; done at [facility] 2019 History of removal of Port-a-Cath 10/13/[address] Geiger, [facility], due to bacteremia/sepsis.; "inserted and removed multiple times" History of hysterectomy 09/27/19 History of appendectomy History of vascular access device 2018; implanted and removed "several" times Family History Father Hyperlipidemia Other No significant family history Social History Smoking Status: Never smoker Second Hand Exposure: No; Do You Dip or Chew Tobacco: No; Hx Alcohol Use: No Hx Substance Use: No Preferred Language: Syrian Communication Ability: Effective Visual Impairment: No Limitations Hearing Ability: Normal [employer] Developer Required: No Beliefs That Will Affect Care: None marital status: Single Current Living Situation: Parent Current Living Situation Comment: Patient lives at home with both parents current occupational status: unemployed current occupation: completed 4-year degree at [employer] How many Children do You have: 0 Feels Safe at Home: Yes Diet: regular Sexual Activity Comment: not sexually active Assistive Devices: Crutches and Other Review of Systems A total of 10 systems reviewed and were otherwise negative Physical Exam Vital Signs Vital Signs - 24 hr 12/02/23 23:48 12/03/23 00:15 Pulse Rate 118 H 96 H Respiratory Rate 18 Respiratory Effort / Characteristics Non-Labored Respiratory Depth Normal Blood Pressure 129/87 Blood Pressure Mean 101 Pulse Oximetry 96 Oxygen Delivery Method Room Air Sepsis Recent Fever Within 48 Hours No Sepsis New/Unexplained Change in Mental Status No Sepsis Action Taken by Nursing No Action Required VITALS: Vitals are noted on the nurse's note and reviewed by myself. Vital signs stable. GENERAL: White female with family present, in no acute distress, nondiaphoretic, well-developed well-nourished. SKIN: Capillary reflex less than 2 seconds. Right upper chest wall with port present. No obvious signs of infection. HEENT: Normocephalic. PERRLA. EOMI. Nares patent. Mucous membranes moist. Neck is supple without nuchal rigidity. HEART: Regular rate and rhythm LUNGS: Clear to auscultation bilaterally without wheezes, rales or rhonchi. No retractions or accessory muscle use. ABDOMEN: Positive bowel sounds x 4. Normal tympanic percussion. Soft, nontender, without masses or organomegaly. Yanez sign negative. No guarding or rebound tenderness. no CVA tenderness MUSCULOSKELETAL: No gross musculoskeletal defects. NEURO: Patient was alert and oriented to person place and time. No focal neurological deficits. Course Administered Medications Hydromorphone HCl (Hydromorphone Inj 1 Mg/Ml Syringe) 1 mg IV Q4H PRN PRN Reason: Breakthrough Pain Stop: 12/17/23 01:04 Last Admin: 12/03/23 01:54 Dose: 1 mg Documented By: MARK Ondansetron HCl (Ondansetron 8mg Od Tab) 8 mg PO TID PRN PRN Reason: Nausea Stop: 01/02/24 01:07 Last Admin: 12/03/23 02:09 Dose: 8 mg Documented By: MARK Discontinued Medications Vancomycin HCl 1,250 mg/ (Sodium Chloride) 525 mls @ 200 mls/hr IV NOW ONE Stop: 12/03/23 02:40 Last Admin: 12/03/23 02:02 Dose: Not Given Documented By: MARK Ceftriaxone Sodium (Rocephin) 2,000 mg in 50 mls @ 100 mls/hr IV NOW STA Stop: 12/03/23 01:45 Last Infusion: 12/03/23 02:29 Dose: Infused Documented By: Admin: 12/03/23 01:54 Dose: 100 mls/hr Documented By: MARK Medical Decision Making Medical Records Attestation: I reviewed the patient's medical records. Home Medications Current Medication List: was personally reviewed by me Laboratory Data Attestation: I reviewed the patient's lab results. 12/03/23 01:01 12/03/23 01:01 Lab Results 12/03/23 Range/Units 01:01 WBC 11.94 H (4.8-10.8) K/ul RBC 3.86 L (4.20-5.40) M/uL Hgb 12.0 (12.0-16.0) g/dl Hct 35.4 L (37.0-47.0) % MCV 91.7 (80.0-100.0) fL MCH 31.1 (25.0-34.0) pg MCHC 33.9 (32.0-36.0) g/dL RDW Std Deviation 41.3 (36.4-46.3) fL RDW Coeff of Tim 12.3 (11.5-14.5) % Plt Count 367 (130-400) K/uL MPV 10.0 (9.4-12.4) fL Immature Gran % (Auto) 0.3 % Neut % (Auto) 76.3 % Lymph % (Auto) 14.8 % Stephens % (Auto) 7.4 % Eos % (Auto) 0.9 % Baso % (Auto) 0.3 % Neut # (Auto) 9.11 H (1.40-6.50) K/uL Lymph # (Auto) 1.77 (1.20-3.40) K/uL Stephens # (Auto) 0.88 H (0.11-0.59) K/uL Eos # (Auto) 0.11 (0.00-0.50) K/uL Baso # (Auto) 0.04 (0.00-0.20) K/uL Immature Gran # (Auto) 0.03 (0.01-0.20) K/uL Sodium 141 (136-145) mmol/L Potassium 3.2 L (3.5-5.1) mmol/L Chloride 102 (98-107) mmol/L Carbon Dioxide 30 (21-32) mmol/L Anion Gap 9 (3-11) BUN 5 L (6-23) mg/dl Creatinine 0.63 (0.6-1.2) mg/dl Est Cr Clr Drug Dosing 121.1 ml/min Est GFR ( Amer) 138.5 ml/min Est GFR (Non-Af Amer) 119.5 ml/min BUN/Creatinine Ratio 7.9 L (10-20) Glucose 86 (70-99(Fasting)) mg/dl Lactate 0.9 (0.4-2.0) mmol/L Calcium 9.1 (8.6-10.3) mg/dl Total Bilirubin 0.3 (0.2-1.0) mg/dl AST 14 (13-39) U/L ALT 8 (7-52) U/L Alkaline Phosphatase 68 (34-104) U/L Total Protein 6.9 (6.0-8.3) gm/dl Albumin 3.9 (3.4-5.0) gm/dl Globulin 3.0 (2.5-4.0) gm/dl Albumin/Globulin Ratio 1.3 (0.9-2) Procalcitonin 0.04 (0-0.5) ng/ml MDM Narrative Prior records/ancillary studies reviewed and summarized above. Nursing notes reviewed. Additional history obtained from family. The patient's history was concerning for positive blood culture. Differential diagnosis: Etiologies such as skin contaminant, sepsis, bacteremia, as well as others were entertained. Physical examination: As above. ER treatment provided: IV Lock An order was placed for continuous cardiac monitoring. The monitor shows a rate of 60-100 with a sinus rhythm per my interpretation. Vancomycin was ordered On reassessment the patient felt better. Diagnostics interpretation by me: EKG ordered for positive blood culture EKG: Normal sinus, normal intervals, no acute ST-T wave changes. Impression sinus tachycardia 102 independently interpreted by myself The labs Independently Interpreted by myself revealed mild leukocytosis, stable per chart review, negative lactic Repeat blood cultures [address], [place] [address] / Director: Eugene Whitmore M.D. Clinical Laboratory Report Name: CHRIS TALBOT Maximiliano Acct: [id number] Status: [facility] : 1990 [facility] Date: 0 12/02/23 Age: 33 Sex: F Dis Date: Loc: [facility] Spec: [id number] Collected: 12/02/23 Received: 12/02/[address]: Leo Rodgers M.D. Source: Blood OV Order: Ordered: Blood Culture Comments: Comment Default is separate sites, same timeRIGHT HAND Procedure Result Verified Site Blood Culture Aerobic Preliminary 12/03/23-53 Organism 1 Gram positive cocci clusters Sens Sensitivities Dependent on Further Identification Blood Culture Anaerobic Preliminary 12/02/23-2250 Organism 1 Gram positive cocci clusters Sens Sensitivities Dependent on Further Identification GRAM STAIN results sent via [employer] to TAMIA HERNÁNDEZ On 12/02/23 at 2250 by Radha Barlow. Confirmed message was read by recipient. Name: CHRIS TALBOT : 1990 PAGE 1 Printed: 12/03/23 0231 END OF REPORT Imaging studies: Chest x-ray with no acute consolidation, pneumothorax or free air per my independent interpretation Consultation: A consultation was placed with the hospitalist. The case was discussed and diagnostics were reviewed. The patient was evaluated in the ER for further treatment. Consultation was placed with surgery. The case was discussed. The patient was evaluated by the surgical team And they recommend medical admission. Exam and history seem consistent with positive blood culture. Patient started antibiotics. Medicine was consulted and the patient be admitted to their service. By the evaluation outlined above emergent etiologies such as electrolyte abnormalities, cardiac sources, intracerebral event, toxologic, neurologic, abnormalities blood glucose, metabolic, as well as others were deemed relatively unlikely. The pt informed about the findings as listed above. All questions were answered and pleased with the treatment. The chart was completed utilizing [employer] Speech voice recognition software. Grammatical errors, random word insertions, pronoun errors, and incomplete sentences are an occassional consequence of this system due to software limitations, ambient noise, and hardware issues. Any formal questions or concerns about the content, text, or information contained within the body of this dictation should be directly addressed to the physician assistant associate full professor for clarification. Impression & Plan Positive blood culture Discharge Plan Visit Data Chief Complaint: Infection Stated Complaint: DOC REF, ABN LABS, ADMIT REQ, SEPSIS/INFECTION ED Provider: Candido Varela ED Midlevel Provider: Sarah Saavedra Discharge Problem: Positive blood culture Patient Disposition: Admitted As Inpatient Condition: Good Discharge Instructions Interventions: ED Discharge Assessment Last Done: 12/03/23 02:02
[2023-12-03 01:48] LABS: Basophils # (auto) 0.04 K/uL (0.00-0.20); Basophils % (auto) 0.3 %; Eosinophils # (auto) 0.11 K/uL (0.00-0.50); Eosinophils % (auto) 0.9 %; Hematocrit (blood only) 35.4 % (37.0-47.0); Immature Granulocytes # (auto) 0.03 K/uL (0.01-0.20); Immature Granulocytes % (auto) 0.3 %; Lymphocytes # (auto) 1.77 K/uL (1.20-3.40); Lymphocytes % (auto) 14.8 %; Mean Corpuscular Hemoglobin 31.1 pg (25.0-34.0); Mean Corpuscular Hgb Conc 33.9 g/dL (32.0-36.0); Mean Corpuscular Volume 91.7 fL (80.0-100.0); Monocytes # (auto) 0.88 K/uL (0.11-0.59); Monocytes % (auto) 7.4 %; Neutrophils # (auto) 9.11 K/uL (1.40-6.50); Neutrophils % (auto) 76.3 %; Platelet Count 367 K/uL (130-400); RDW Coefficient of Variation 12.3 % (11.5-14.5); RDW Standard Deviation 41.3 fL (36.4-46.3); Red Blood Count 3.86 M/uL (4.20-5.40); White Blood Count 11.94 K/ul (4.8-10.8)
[2023-12-03] MEDS: HYDROmorphone INJ 1 MG/ML SYRINGE IV PRN (01:54)
[2023-12-03] MEDS: cefTRIAXone SODIUM 2,000 MG/50 ML BAG IV STA (01:54)
[2023-12-03] MEDS: VANCOMYCIN HCL 1,250 MG in SODIUM CHLORIDE 0.9% 500 ML IV ONE (02:02)
[2023-12-03 02:05] LABS: Albumin Globulin Ratio 1.3 (0.9-2); Albumin Level 3.9 gm/dl (3.4-5.0); BUN Creatinine Ratio 7.9 (10-20); Bilirubin,Total 0.3 mg/dl (0.2-1.0); Calcium 9.1 mg/dl (8.6-10.3); Creatinine Clr Calc Pharmacy 121.1 ml/min; Est GFR (African American) 138.5 ml/min; Est GFR (Non-African American) 119.5 ml/min; Potassium 3.2 mmol/L (3.5-5.1); Total Protein 6.9 gm/dl (6.0-8.3)
[2023-12-03] MEDS: ONDANSETRON 8MG OD TAB PO PRN (02:09)
[2023-12-03] MEDS: SODIUM CHLORIDE 0.9% 1,000 ML IV SCH (02:43)
[2023-12-03] MEDS ORDERED: TPN/PPN CONSULT PHARMACY PRN (02:49)
[2023-12-03] MEDS: DICYCLOMINE HCL 10 MG CAP PO PRN (03:54)
[2023-12-03] MEDS: LORazepam 0.5 MG in SYRINGE 0.25 ML IV PRN (04:02)
[2023-12-03] MEDS: oxyCODONE INTENSOL 20 MG/1 ML UDP PO PRN (04:18)
[2023-12-03] MEDS: LEVOTHYROXINE SODIUM 50 MCG TABLET PO SCH (05:15)
--- NOTE | 2023-12-03 06:52 | XRay Report ---
XR chest 1V portable CLINICAL HISTORY: weakness TECHNIQUE: Single frontal radiograph of the chest was obtained. Comparison: Comparison is made to chest radiograph 11/10/2023 FINDINGS: A port catheter is seen. The cardiomediastinal silhouette is normal. The lungs are clear. No evidence of pleural effusion or pneumothorax. IMPRESSION: No acute chest disease. ACT 112: Negative or not required by law. Electronically signed by: Tony Barnes M.D. 12/03/2023 6:50 AM
--- NOTE | 2023-12-03 07:03 | Hospitalist Progress Note ---
"Date of Service December 03, 2023 Assessment & Plan (1) Gram-positive bacteremia: (2) Methicillin susceptible Staphylococcus aureus infection: (3) Central line infection: (4) Iron deficiency anemia: (5) Witnessed seizure-like activity: (6) Abdominal pain, chronic, generalized: (7) Sinus tachycardia: (8) Secondary hyperparathyroidism: (9) Gastroparesis: (10) Urinary retention: (11) Hemorrhagic cystitis: (12) Endometriosis: Evelyn Quezada is a 33F with PMH of pseudoseizures, gastroparesis w/ chronic abdominal pain s/p PEG tube & ostomy placement, chronic pain syndrome (previously requiring ketamine infusion), iron deficiency anemia, chronic migraines, secondary hyperparathyroidism, hemorrhagic cystitis, and endometriosis who presents at recommendation of general surgery for gram positive bacteremia secondary to port infection. Gram Positive Bacteremia Port Infection (R Chest) - Moderate erythema w/o expressible purulence at port site - Leukocytosis on presentation w/ tachycardia (though longstanding) -mIVF @ 100 cc/hr - Infectious Disease consulted, aprecc recommendations * Blood cultures 12/01 indicative of gram positive bacteremia * Positive for staph aureus, MRSA negative * Cefazolin IV * Pending TTE * Continue BCx until clear x48h - Chest CTA ordered - TTE pending - Repeat blood cultures pending - General surgery consulted for management of port - OR today for removal - Will consider PICC line when negative BCx for her TPN Chronic Pain Syndrome | Pseudoseizures - Witnessed pseudoseizure in ED, noted to be a/w chronic pain, resolved with auditory support - Continue home medications Lorazepam 0.5 mg QID PRN Oxycodone 20 mg QID PRN Fentanyl patch 75 mcg Q 72H Gabapentin 900 mg PO TID Duloxetine 60 mg PO QAM - Additional Dilaudid 1 mg Q4h PRN for breakthrough pain Patient preference to avoid ICU/Ketamine at this time - Continue antinausea treatment with Zofran and Ativan PRN Chronic Conditions - Gastroparesis: continue home medications, PEG and ostomy care inpatient, continue PPI - Iron Deficiency Anemia: continue supplementation - Secondary Hyperparathyroidism: continue home medications - Hemorrhagic cystitis: continue bethanechol PRN Code: Full Diet: NPO IVF: Deferred at this time Dispo: PCU Consults: ID, Gen Surg, Silhouette Artist for TPN Admission and Anticipated Discharge Date Admission Date: December 03, 2023 Supervising Physician Co-Signing Physician Notes I personally examined the patient and verified all solorzano points of history and exam, discussed case, and agree with decision making with Dr Stone Wilkerson Feeling okay. Pain right-sided and worse with movement or deep breath. Abdominal pain reasonable. For surgery shortly. Discussed treatment plan. Vitals noted, in general she is awake and alert pleasant other than intermittent wincing from right-sided rib/flank pain she is in no distress. HEENT normocephalic atraumatic mucous membranes moist. Breathing unlabored no accessory muscle use good effort. Skin shows no rashes no pallor or icterus. Neuro without focal deficits. Staph bacteremiacefazolin, follow cultures, await echo, await port removal. Detailed exam/serial histories for any other downstream sequela I. Appreciate ID input. Agree with need for no central IV access until it is clear that her bacteremia has cleared; at the same time given that she is almost entirely TPN dependent for nutrition, we will end up needing some form of central access once it is safe to do so. Chronic abdominal painshe relates rather significant improvement after her most recent surgery with what sounds to have been a massive lysis of adhesions. Subjective Patient evaluated this morning. On service due to gram positive bacteremia on the setting of a Cath port. Por will be remove today. This morning Pilar still had right chest pain, RUQ pain and back pain. Will do a CT to rule out septic emboli Denied any nausea or vomiting, no chills no SOB. Currently NPO Review of Systems Review of Systems: as per HPI Physical Exam Constitutional: well developed and cooperative; no acute distress Eyes: PERRL, conjunctivae normal, anicteric sclerae ENMT: external ear and nose normal, oropharynx normal Respiratory: normal respiratory effort, lungs clear to auscultation Auscultation: no rhonchi and no wheezes Cardiovascular: Rate/Rhythm: regular rhythm and + tachycardic Heart Sounds: normal S1 and normal S2 Gastrointestinal (Abdomen): normal bowel sounds, soft, nontender, no hepatosplenomegaly Inspection/Auscultation: + abdominal surgical scar PEG tube in place, Mild erythema surrounding the base, minimal discharge. ostomy intact with healthy pink stoma, no masses Results & Data Results & Data Vital Signs (Past 12 Hours) Vital Signs Temp Pulse Pulse Resp BP BP Pulse Ox 12/03/23 06:59 36.6 C 95 H 19 116/80 95 12/03/23 02:42 37 C 101 H 21 138/96 99 12/03/23 02:30 107 H 12/03/23 02:28 37.0 C 101 H 21 138/96 99 12/03/23 02:05 104 H 18 126/91 97 12/03/23 00:15 96 H 12/02/23 23:48 118 H 18 129/87 96 O2 Del Method 12/03/23 06:59 Room Air 12/03/23 02:42 Room Air 12/03/23 02:30 12/03/23 02:28 Room Air 12/03/23 02:05 12/03/23 00:15 12/02/23 23:48 Room Air Resident Activity Tracking Resident Involvement: Resident Care Provided Care Provided: Adult Hospital Medicine"
[2023-12-03] MEDS: CHECK fentaNYL PATCH PLACEMENT SCH (07:25)
[2023-12-03] MEDS: POTASSIUM CHLORIDE / WTR 10 MEQ/100 ML PLCT IV SCH (08:29)
[2023-12-03] MEDS: FAMOTIDINE 20 MG TAB PO SCH (08:33)
[2023-12-03] MEDS: FLUDROCORTISONE ACETATE 0.1 MG TAB PO SCH (08:33)
[2023-12-03] MEDS: PYRIDOXINE HCL 50 MG TAB PO SCH (08:34)
[2023-12-03] MEDS: HYDROCORTISONE 10 MG TAB PO SCH ×2 (08:34→14:39)
[2023-12-03] MEDS: BETHANECHOL CHL 25 MG TAB PO PRN (08:34)
[2023-12-03] MEDS: DULoxetine HCL 60 MG CAP PO SCH (08:34)
[2023-12-03] MEDS: CHOLECALCIFEROL 25 MCG (1000 UNITS) TAB PO SCH (08:35)
[2023-12-03] MEDS: PANTOprazole 40 MG TAB PO SCH (08:35)
[2023-12-03] MEDS: METHOCARBAMOL 750 MG TABLET PO SCH (08:35)
[2023-12-03] MEDS: GABAPENTIN 250 MG/5 ML 470 ML BTL PO SCH (08:36)
[2023-12-03] MEDS: HYDROmorphone INJ 0.5 MG/0.5 ML SYR IV STA (09:00)
--- NOTE | 2023-12-03 09:31 | Electrocardiogram Report ---
Test Reason : Blood Pressure : / mmHG Vent. Rate : 102 BPM Atrial Rate : 102 BPM P-R Int : 150 ms QRS Dur : 082 ms QT Int : 338 ms P-R-T Axes : 046 034 006 degrees QTc Int : 440 ms Sinus tachycardia Possible Left atrial enlargement Nonspecific T wave abnormality Abnormal ECG When compared with ECG of 16-MAR-2023 05:32, No significant change was found Confirmed by Fausto Jones ([id number]) on 12/03/2023 9:31:42 AM Referred By: Job Ribeiro Confirmed By:Fausto Jones
[2023-12-03] MEDS: ceFAZolin 2000MG 2,000 MG/15 ML SYR IV SCH (09:35)
--- OUTSIDE RECORDS SUMMARY | 2023-12-03 10:21 | External Medical Summary | Summary of Care ---
Author Name Unknown Organization [facility] Address [address] [place] [address] Phone [phone] Care Team Providers Care Electronics Technology Instructor Name Role Phone Mariah Addison Primary Care Provider Reason for Visit * Reason Onset Date Comments Advice 12/01/2023 Encounter Details Date Type Department Care Team (Late st Contact Info) Description 12/01/2023 Telephone General Surgery, [facility] [address] [place] [address] Services, Scheduling [address] [place] [address] Advice Allergies Active Allergy Reactions Criticality Noted Date Comments Amoxicillin-Pot Clavulanate 03/16/20 09 Rash Cefazolin Sodium 03/16/2009 rash Diphenhydramine Anaphylaxis High 10/13/2017 Other reaction(s): Itching IV FORM Metoclopramide High 10/27/2019 Other reaction(s): Anxiety Promethazine Hcl Hives High 12/17/2016 Throat swelled shut . Sulfa Antibiotics Rash 05/22/2011 documented as of this encounter (statuses as of 12/02/2023) Medications Medication Sig Dispensed Refills Start Date End Date Status MULTI-VITAMIN PO TABS one tablet daily Active ZYRTEC ALLERGY 10 MG PO TABSIndications: Allergic rhinitis, cause unspecified,Recu rrent sinusitis,Cough 1 TABLET DAILY as needed for allergies 30 Tab 0 10/18/2012 Active ALBUTEROL SULFATE HFA 108 (90 BASE) MCG/ACT IN AERSIndications: Intermittent asthma with reliever use up to twice per week 2 puffs every 4hr for cough, wheeze, SOB and prior exercise 1 Inhaler 4 03/14/2014 Active dicyclomine (BENTYL) 10 MG Capsule Take 1 Capsule by mouth as needed. Active ondansetron (ZOFRAN) 4 MG Tablet Take 1 Tablet by mouth. As needed Active triamcinolone acetonide (ARISTOCORT) 0.1 % cream As needed 11/29/2015 Active pantoprazole (PROTONIX) 20 MG TBEC 1 daily 06/02/2016 Active trimethobenzamid e (TIGAN) 300 MG Capsule As needed 05/26/2016 Active Azelastine HCl (ASTELIN) 0.1 % nasal sprayIndications :Recurrent sinusitis Administer 2 Sprays into nostril 2 times a day. 3 Bottle 3 02/11/2017 Active hyoscyamine (LEVSIN) 0.125 MG SL tablet As needed 04/16/2017 Active K Phos [place]-Sod Phos Di & [place] (O-WAXJ-[id number]) 155-852-130 MG TABS Take 250 mg by mouth. 06/14/2019 Active LORAzepam (ATIVAN) 0.5 MG Tablet Take 1 Tablet by mouth every 6 hours as needed. Active Fludrocortisone Acetate 0.1 MG Oral Tablet [...] for illness 285 Tablet 3 06/29/2023 Active ertapenem (INVANZ) 1 g IVPB Administer 1 g intravenously daily. 4 Discontinue d(End of Procedure) documented as of this encounter (statuses as of 12/02/2023) Active Problems Problem Noted Date Diagnosed Date [...] as of this encounter (statuses as of 12/02/2023) Resolved Problems Problem Noted Date Diagnosed Date Resolved Date Allergic rhinitis, cause unspecified 10/18/2012 03/14/2014 Rhinitis due to pollen 05/22/201110/18 NO SIGNIFICANT MED HX 2012 documented as of this encounter (statuses as of 12/02/2023) Immunizations Name Administration Dates Next Due DTWP - Dipth/Tet/Whole Cell Pertussis 1992 ,1992,1992 DTaP Dipth/Tet/Acell Pertussis (Infanrix), Peds 01/23/1997,08/15/1993 Haemophilius B (HIB), unspecified 1993,1992,1992,1991 Hepatitis B Vaccine 1992,1992,1991 MMR - Measles/Mumps/Rubella Vaccine 01/23/1997,0 05/23/1993 OPV - Polio Virus Vaccine (Oral) 997,08/15/1993,1992,1991 Seasonal Influenza, Quadriva lent, No Preserve, IM 04/14/2015 Seasonal Influenza, Split, I IV3, With Preserve, Inj 03/14/2014 Varicella Vaccine (Chicken Pox) 03/24/1995 documented as of this encounter Social History [...] on file documented as of this encounter Miscellaneous Notes * Telephone Encounter - Angi Thomas OSA - 12/02/2023 1:34 PM EDT Pt mom Malathi calling in, Dr. Rodgers order blood work today and the pt also gets weekly blood work ordered by her PCP. Pt WBC was elevated over 12. They just wanted to let Dr. Rodgers know. * Telephone Encounter - Marina Albarran OSA - 12/01/2023 9:03 AM EDT Scheduled on 12/02/23. * Telephone Encounter - Tianna Miller LPN - 12/01/2023 8:59 AM EDT Can you get her in with Vishal tomorrow. * Telephone Encounter - Angi Thomas OSA - 12/01/2023 8:52 AM EDT Pt mom Malathi calling in, Dr. Rodgers placed pt port for her a while back. Pt states that this morning she had a lot of pain around the port access so she de accessed it and puss came out. No fever, redness or warmth to touch at this time. Mom wondering what the Dr would recommend doing? Please contact Malathi at [phone] documented in this encounter Plan of Treatment Upcoming Encounters Date Type Department Care Team (Late st Contact Info) Description 12/02/2023 3:00 PM EDT Imaging Radiology [facility] [address] [facility] [place] [address] 12/10/2023 10:15 AM EDT Office Visit General Surgery, [facility] [address] [facility] [place] [address] Leo Rodgers MD [address] [place] [address] Health Maintenance Due Date Last Done Comments DTaP,Tdap,and Td Vaccines (6 - Tdap) 01/21/2003 01/23/1997, 08/15/1993, 1992, Additional history exists Depression Screening 2004 Hepatitis C Screening 01/21/2010 COVID-19 Vaccine (4 - 2022-2 4 season) 2023 02/27/2021, 02/27/2021, 07/11/2020, Additional history exists Influenza Vaccine (FLU shot) (#1) 2024 04/14/2015, 04/05/2015, 03/21/2014, Additional history exists TSH 05/19/2024 05/19/2023, 03/04/2023 Hepatitis B Vaccine Completed 1992, 1992, 1992, Additional history exists MENINGOCOCCAL (MENACTRA/MENVEO) Completed 9 HPV (Gardasil) Vaccine Completed 1, 03/27/2010, 12/20/2009 Pneumococcal Vaccine: Pediat rics (0 to 5 Years) and At-Risk Patients (6 to 64 Years) Completed 01/09/2022 HIV Screening Completed 05/26/2023, 09/17/2021 documented as of this encounter Medical Devices Not on filedocumented as of this encounter Care Teams Electronics Technology Instructor Relationship Specialty Start Date End Date Mariah Addison DO [address] [facility] [address] [place] [address] PCP - General Family Medicine 03/14/14 documented as of this encounter
--- OUTSIDE RECORDS SUMMARY | 2023-12-03 10:21 | External Medical Summary | Summary of Care ---
Author Name Unknown Organization [facility] Address [address] [place] [address] Phone [phone] Care Team Providers Care Wheel Aligner Name Role Phone Mariah Addison Primary Care Provider Reason for Visit * Reason Comments Follow Up Port issue. Encounter Details Date Type Department Care Team (Late st Contact Info) Description 12/02/2023 10:00 AM EDT Office Visit General Surgery, [facility] [address] [place] [address] Leo Rodgers MD [address] [place] [address] Encounter for venous access device care* Allergies Active Allergy Reactions Criticality Noted Date [...] tablet As needed 04/16/2017 Active K Phos [place]-Sod Phos Di & [place] ([id number]-LVRL-MAHPFPT) 155-852-130 MG TABS Take 250 mg by [...] for illness 285 Tablet 3 06/29/2023 Active Cephalexin 500 MG Oral Capsule (Keflex) Take 1 Capsule by mouth in the morning and 1 Capsule at noon and 1 Capsule before bedtime. 30 Capsule 12/02/2023 Active ertapenem (INVANZ) 1 g IVPB Administer 1 g intravenously daily. Discontinue d(End of Procedure) documented as of [...] 12/02/2023) Immunizations Name Administration Dates Next Due Seasonal [...] on file documented as of this encounter Last Filed Vital Signs Vital Sign Reading Time Taken Comments Blood Pressure - - Pulse - - Temperature 36.7 C (98.1 F) 12/02/2023 10:00 AM E DT Respiratory Rate - - Oxygen Saturation - - Inhaled Oxygen Concentration - - Weight - - Height - - Body Mass Index - - documented in this encounter Progress Notes * Leo Rodgers MD - 12/02/2023 1:11 PM EDT SUBJECTIVE: Pilar Garcia is a 33 year old female. Chief Complaint Patient presents with Follow Up Port issue. HPI: 33-year-old woman presents for issue with her access port. She has been having some pain and tenderness at the port site. She states that the last time it was de accessed, a small amount of yellow fluid drained from the needle hole. She is concerned that this may be an infection. She denies fevers or chills. She denies other complaints. Past Medical History: Diagnosis Date Adrenal insufficiency (HCC) Endometriosis Gastrointestinal dysmotility Hypoglycemia Malnutrition (HCC) MIGRAINE, NOS 03/16/2009 Nasal turbinate hypertrophy 05/22/2011 Rhinitis due to pollen SMAS (superior mesenteric artery syndrome) (HCC) Vitamin D deficiency Past Surgical History: Procedure Laterality Date DENTAL SURGERY PROCEDURE NEC complicated by chronic sinusitis EGD, FLEXIBLE, DIAGNOSTIC 01/08/2016 normal bx, HH/ESOPHAGOGASTRODUODENOSCOPY (EGD), FLEXIBLE, TRANSORAL, DIAGNOSTIC performed by Sherly Spence DO at [facility] EGD, FLEXIBLE, DIAGNOSTIC 02/13/2016 normal bx/[facility] IR GASTROINTESTINAL BILIARY 08/03/2020 IR GASTROINTESTINAL BILIARY 05/28/2020 IR GASTROINTESTINAL BILIARY 03/15/2020 IR GASTROINTESTINAL BILIARY 02/20/2020 IR GASTROINTESTINAL BILIARY 02/14/2019 IR GASTROINTESTINAL BILIARY 01/28/2019 IR GASTROINTESTINAL BILIARY 11/16/2017 IR GASTROINTESTINAL BILIARY 10/13/2017 IR GASTROINTESTINAL OSTOMY 12/10/2022 LAP;W/HYSTERECTOMY 09/27/2019 LAPAROSCOPY; CHOLECYSTECTOMY MISCELLANEOUS ORDER ([facility] ONLY) 10/28/2019 Exploratory laparotomy for perforated duodenum. WA COLCT TTL ABD W/PRCTECT ILEOANAL ANAST & RSVR REMOVAL OF APPENDIX REMOVE TONSILS & ADENOIDS, UNDER 12 age 6 T & A, age<12 TOTAL ABD HYSTERECTOMY W/WO REMOVAL OF TUBE(S) September 26, 2018 Current Outpatient Medications Medication Sig Dispense Refill MULTI-VITAMIN PO TABS one tablet daily ZYRTEC ALLERGY 10 MG PO TABS 1 TABLET DAILY as needed for allergies 30 Tab 0 ALBUTEROL SULFATE HFA 108 (90 BASE) MCG/ACT IN AERS 2 puffs every 4hr for cough, wheeze, SOB and prior exercise 1 Inhaler 4 dicyclomine (BENTYL) 10 MG Capsule Take 1 Capsule by mouth as needed. ondansetron (ZOFRAN) 4 MG Tablet Take 1 Tablet by mouth. As needed pantoprazole (PROTONIX) 20 MG TBEC 1 daily hyoscyamine (LEVSIN) 0.125 MG SL tablet As needed K Phos [place]-Sod Phos Di & [place] (K-[id number]-PADDFAF) 155-852-130 MG TABS Take 250 mg by mouth. LORAzepam (ATIVAN) 0.5 MG Tablet Take 1 Tablet by mouth every 6 hours as needed. Fludrocortisone Acetate 0.1 MG Oral Tablet (Florinef) Take two daily oxyCODONE HCl 5 MG/5ML Oral Solution (Roxicodone) TAKE 5ML EVERY 4 HOURS NEEDED FOR PAIN FOR 14 DAYS Levothyroxine Sodium 50 MCG Oral Tablet (Levoxyl) one pill each day (at least 30 min prior to breakfast or other meds) 90 Tablet 3 Hydrocortisone 10 MG Oral Tablet (Cortef) Take 15mg am and 10mg pm, plus up to 20 extra pills/monthfor illness 285 Tablet 3 Cephalexin 500 MG Oral Capsule (Keflex) Take 1 Capsule by mouth in the morning and 1 Capsule at noon and 1 Capsule before bedtime. 30 Capsule 0 triamcinolone acetonide (ARISTOCORT) 0.1 % cream As needed trimethobenzamide (TIGAN) 300 MG Capsule As needed Azelastine HCl (ASTELIN) 0.1 % nasal spray Administer 2 Sprays into nostril 2 times a day. 3 Bottle3 No current facility-administered medications for this visit. Review of patient's allergies indicates: Allergen Reactions Diphenhydramine Anaphylaxis Other reaction(s): Itching IV FORM Metoclopramide Other reaction(s): Anxiety Phenergan [Promethazine Hcl] Hives Throat swelled shut . Amoxicillin-Pot Clavulanate Rash Ancef [Cefazolin Sodium] rash Sulfa Antibiotics Rash Social History: Social History Tobacco Use Smoking status: Never Smokeless tobacco: Never Tobacco comments: non-smoking household Substance Use Topics Alcohol use: No Vaping/E-Cigarette Use Vaping/E-Cigarette Use Never User Vaping/E-Cigarette Substances Vaping/E-Cigarette Devices OBJECTIVE: PHYSICAL EXAM: Temp 36.7 C (98.1 F) General: alert, healthy, and no distress Head: Normocephalic, No masses, lesions, tenderness or abnormalities Eye Exam: conjunctiva are pink and non-injected, sclera clear Abdomen: abdomen soft and non-tender Extremities: no edema, no clubbing, no cyanosis Skin: skin color, texture, turgor are normal, no rashes or significant lesions Right chest wall with port, tenderness to palpation, no erythema/discharge; no induration or fluctuance; no palpable fluid collection ASSESSMENT: Z45.2 Encounter for venous access device care (primary encounter diagnosis) PLAN: Pain and tenderness at port site with question of purulent drainage when the port was de accessed last time. We will obtain an ultrasound of the area for further evaluation. We will obtain blood cultures from the port and from a peripheral site. Once the cultures were taken, we will start her on Keflex. She will follow up in 1 week. She will call with any new or concerning symptoms in the meantime. Leo Rodgers MD 12/02/2023 documented in this encounter Nursing Notes * Wellington Son MED ASSIST - 12/02/2023 10:03 AM EDT Chief Complaint Patient presents with Follow Up Port issue. Verified patient. Some pain 5/10 constant and some drainage too. documented in this encounter Plan of Treatment Upcoming Encounters Date Type Department Care Team (Late st Contact Info) Description 12/02/2023 3:00 PM EDT Imaging Radiology [facility] [address] [place] [address] 12/10/2023 10:15 AM EDT Office Visit General Surgery, [facility] [address] [place] [address] Leo Rodgers MD [address] [place] [address] Scheduled Orders Name Type Priority Associated Diagnoses Orde r Schedule US HEAD AND NECK Medical Imaging Routine Encounter for venous access device care Expected: 12/02/2023, Expires: 01/01/2025 CULTURE, BLOOD Lab Routine Encounter for venous access device care Expected: 12/02/2023, Expires: 12/01/2024 CULTURE, BLOOD Lab Routine Encounter for venous access device care Expected: 12/02/2023, Expires: 12/01/2024 Health Maintenance Due Date Last Done Comments [...] Not on filedocumented as of this encounter Visit Diagnoses Diagnosis Encounter for venous access device care- Primary Fitting and adjustment of vascular catheter documented in this encounter Care Teams Wheel Aligner Relationship Specialty Start Date End Date Mariah Addison DO [address] [place] [address] Dr Mendoza [address] [place] [address], [place] [address] PCP - General Family Medicine 03/14/14 documented as of this encounter
--- OUTSIDE RECORDS SUMMARY | 2023-12-03 10:21 | External Medical Summary | Summary of Care ---
Author Name Unknown Organization [facility] Address [address] [place] [address] Phone [phone] Care Team Providers Care Refrigeration Systems Installer Name Role Phone Mariah Addison Primary Care Provider Reason for Visit * Reason Onset Date Comments Advice 12/01/2023 Encounter Details Date Type Department Care Team (Late st Contact Info) Description 12/01/2023 Telephone General Surgery, [facility] [address] [place] [address] Services, Scheduling [address] [place] [address] Advice Allergies Active Allergy Reactions Criticality Noted [...] tablet As needed 04/16/2017 Active K Phos [place]-Sod Phos Di & [place] ([id number]-DHFU-[id number]) 155-852-130 MG TABS Take 250 mg by [...] would recommend doing? Please contact Malathi at [phone] documented in this encounter Plan of Treatment Upcoming Encounters Date Type Department Care Team (Late st Contact Info) Description 12/02/2023 3:00 PM EDT Imaging Radiology [facility] [address] [facility] [place] [address] 12/10/2023 10:15 AM EDT Office Visit General Surgery, [facility] [address] [facility] [place] [address] Leo Rodgers MD [address] [place] [address] Health Maintenance Due Date Last Done Comments [...] filedocumented as of this encounter Care Teams Refrigeration Systems Installer Relationship Specialty Start Date End Date Mariah Addison DO [address] [facility] [address] [place] [address] PCP - General Family Medicine 03/14/14 documented as of this encounter
--- NOTE | 2023-12-03 10:25 | Surgery Progress Note ---
Date of Service December 03, 2023 Assessment & Plan (1) Gram-positive bacteremia: Plan: Gram-positive bacteremia with Staph aureus from recent outpatient blood draw, with port in place, concerning for port infection. Infectious disease discussed with patient and will likely recommend removal, we will see if they would prefer to wait till after the most recent blood cultures come back. She will need central access for TPN and antibiotics, will recommend PICC line. Follow-up ID consult Likely plan for port removal Risk discussed to include but not limited to bleeding, infection, port fracture or inability to remove, poor access, need for future more extensive surgery, and the risk of anesthesia Patient will follow-up with [facility] surgery for new central access as an outpatient (2) Positive blood culture: (3) Port-A-Cath in place: Admission and Anticipated Discharge Date Admission Date: December 03, 2023 Subjective 33-year-old female with multiple medical problems including need for TPN, presented to the emergency room overnight with positive blood cultures. She has a history of multiple port placements. She has a right port that was placed by Dr. Rodgers in May 2022. She started noticing some tenderness yesterday and had some purulent appearing fluid upon withdrawal of the needle. Dr. Rodgers ordered blood cultures which grew back Staph aureus. Physical Exam Constitutional: WD/WN, vitals as above Chest (Breasts): Chest: + vascular access device or port (Mild ecchymosis) Results & Data Vital Signs (Past 12 Hours) Vital Signs Temp Pulse Pulse Resp BP BP Pulse Ox 12/03/23 07:38 106 H 12/03/23 06:59 36.6 C 95 H 19 116/80 95 12/03/23 02:42 37 C 101 H 21 138/96 99 12/03/23 02:30 107 H 12/03/23 02:28 37.0 C 101 H 21 138/96 99 12/03/23 02:05 104 H 18 126/91 97 12/03/23 00:15 96 H 12/02/23 23:48 118 H 18 129/87 96 O2 Del Method 12/03/23 07:38 12/03/23 06:59 Room Air 12/03/23 02:42 Room Air 12/03/23 02:30 12/03/23 02:28 Room Air 12/03/23 02:05 12/03/23 00:15 12/02/23 23:48 Room Air Laboratory Results Blood Culture Aerobic Preliminary 12/03/23-802 Organism 1 Staphylococcus species Sens Sensitivities to Follow GRAM STAIN results sent via [facility] to [facility] On 12/02/23 at 2250 by Radha Barlow. Confirmed message was read by recipient. Blood Culture Anaerobic Preliminary 12/03/23-802 Organism 1 Staphylococcus species Sens No Sensitivities to Follow Blood Culture PCR Panel If viewing in EMR, results available under LAB Serology tab. GRAM STAIN results sent via [facility] to [facility] On 12/02/23 at 2250 by Radha Barlow. Confirmed message was read by recipient. PG Care Time/CCT Total # of Minutes Spent Total Time Spent with Patient: Total time spent is greater than 50% in coordination of care (as documented) at patient's floor/unit and/or counseling patient: Coding Level of Care Code 86388 SUB INP/OBS CARE 2/35MIN Diagnoses Gram-positive bacteremia R78.81 Positive blood culture R78.81 Port-A-Cath in place Z95.828
[2023-12-03] MEDS: ONDANSETRON INJ 2 MG/ML 2 ML VIAL IV PRN (11:04)
--- NOTE | 2023-12-03 11:08 | Infectious Disease Consult ---
Date of Consultation December 03, 2023 Assessment & Plan (1) MSSA bacteremia: (2) Port-A-Cath in place: (3) Infection due to Port-A-Cath: Plan ID Problem List: 1. MSSA bacteremia 2. Suspected R chest port infection 3. R chest port in place, TPN dependence 4. Gastroparesis and chronic pain with PEG, ileostomy 5. History of port infection 6. Listed antibiotic allergies: amoxicillin (rash), cefazolin (rash) tolerates Keflex and ceftriaxone 11/2023, Bactrim (rash) Impression: Pilar Garcia is a 33-year-old woman with history of gastroparesis w/ chronic abdominal pain s/p PEG tube & ostomy placement, R chest port in place, TPN dependence, chronic pain syndrome (previously on ketamine infusion), pseudoseizures, chronic migraines, secondary hyperparathyroidism, hemorrhagic cystitis, endometriosis, who presents to [facility] on 12/03/23 for GPC bacteremia, found to have MSSA bacteremia. ID is consulted for MSSA bacteremia. 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 No fevers, no chills when accessing the port. She typically has her port accessed 08/12 for TPN/fluids, and had it deaccessed. She also reports 1 week of PEG tube site redness, tenderness, and drainage. She contacted surgery who obtained blood cultures and placed her on Keflex TID she had taken 2 doses of this before she was contacted by surgery to notify her of positive BCx for GPCs, and was recommended to present to the ED. No fevers, chills, rashes at home. In the ED, afebrile T36.5 BP 129/87 HR 118 SpO2 96% RA. WBC 12.03 Cr 0.65 LFTs wnl. While in the ED, pseudoseizure event was noted. Her 12/01 BCx from both her port and peripheral BCx are growing Staph (BCID + Staph aureus, mecA negative) in all bottles. She received one dose of ceftriaxone then was changed to cefazolin. At the time of evaluation, afebrile. She reports pleuritic chest pain in her R chest that radiates to her back which is new. She also recently fell and injured her R hip, which has had stable pain. She reports that she is undergoing small bowel transplant eval at [facility] but is not currently listed for transplant. She reports a history of four prior port infections. She was last admitted to [facility] 02/2023 where she was found to have a port infection. L chest port wall Cx grew MSSA and Pseudomonas; catheter was removed and 03/05/23 catheter tip Cx with 3 morphologies of MSSA. BCx were NG. She was treated with a 14-day course of cefepime (03/1003/24/23). At the time she also had a spinal cord stimulator with a trial lead which was removed and spinal cord stimulator lead Cx were negative. Discussion Pt presents with high-grade MSSA bacteremia (and BCx + from both port and peripheral), and erythema and purulence at her port site. Suspect that the bacteremia is originally from her port. Given Staph aureus bacteremia, recommend port removal, and ideally line holiday of 72 hours and clear BCx prior to replacing. Recommend TTE with low threshold for MARLY if remains bacteremic, and repeat BCx daily until clear x48h. Would continue to monitor closely for any new/worsening focal complaints (e.g., joint pain, back pain) with low threshold to image/evaluate as possible metastatic infection. Note pt reporting pleuritic R-sided chest pain, may consider CT chest to further evaluate. If having continued mid-back pain, consider MRI spine. PEG tube site noted to have some purulent drainage as well. Will follow superficial wound cultures of drainage. Can continue cefazolin to best target MSSA. Note pt with listed abx allergies to penicillins and cefazolin though has recently tolerated Keflex and ceftriaxone. Also recommend referral to outpatient allergy to clarify abx allergies including to penicillins and cephalosporins. Recommendations: - Continue cefazolin 2g IV q8h - Obtain TTE - Low threshold for MARLY if remains bacteremic - Repeat BCx daily until clear x48h - Recommend removal of port given Staph aureus bacteremia please send catheter tip for Cx, and ideally line holiday of 72 hours and clear BCx prior to replacing - Recommend CT chest w/ contrast to further evaluate R-sided chest pain. If having continued mid-back pain, consider MRI spine. - Continue to monitor closely for any new/worsening focal complaints (e.g., j oint pain, back pain) with low threshold to image/evaluate as possible metastatic infection - F/u 12/02 PEG tube wound Cx - F/u 12/01 susceptibilities to ensure that MSSA identified as per BCID - Recommend referral to outpatient allergy to clarify abx allergies including to penicillins and cephalosporins ID will continue to follow. Talia Paz MD, [facility] Infectious Diseases [facility] ID Connect direct line: [phone] Consultation Information Consultation was provided via telemedicine using two-way real-time interactive telecommunication between the patient and the telemedicine provider. For the duration of the visit, the provider was performing the assessment from a different facility than the patient. This includesuse of bluetooth stethoscope forauscultationperformed by the telepresenter that the telemedicine provider can hear if described in the physical exam. [employer] Manager contact information: Please call [facility] Connect Call Center . (Phone Number For Physician Use Only) After establishing a telemedicine visit, patient was: Patient was verified with two unique identifiers, Patient/authorized rep acknowledged consent and understanding and Gave permission to continue telehealth session Time Spent with Patient: Initial => 75 min History of Present Illness Reason for Consultation: MSSA bacteremia, port infection Attending Physician: Ramses Layne, History of Present Illness Pilar Garcia is a 33F with history of gastroparesis w/ chronic abdominal pain s/p PEG tube & ostomy placement, chronic pain syndrome (previously on ketamine infusion), pseudoseizures, chronic migraines, secondary hyperparathyroidism, hemorrhagic cystitis, endometriosis, R chest port in place, who presents to [facility] on 12/03/23 for GPC bacteremia, found to have MSSA bacteremia. ID is consulted for MSSA bacteremia. 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 No fevers, no chills when accessing the port. She typically has her port accessed 08/12 for TPN/fluids, and had it deaccessed. She also reports 1 week of PEG tube site redness, tenderness, and drainage. She contacted surgery who obtained blood cultures and placed her on Keflex TID she had taken 2 doses of this before she was contacted by surgery to notify her of positive BCx for GPCs, and was recommended to present to the ED. No fevers, chills, rashes at home. In the ED, afebrile T36.5 BP 129/87 HR 118 SpO2 96% RA. WBC 12.03 Cr 0.65 LFTs wnl. While in the ED, pseudoseizure event was noted. Her 12/01 BCx from both her port and peripheral BCx are growing Staph (BCID + Staph aureus, mecA negative) in all bottles. She received one dose of ceftriaxone then was changed to cefazolin. At the time of evaluation, afebrile. She reports pleuritic chest pain in her R chest that radiates to her back which is new. She also recently fell and injured her R hip, which has had stable pain. She reports that she is undergoing small bowel transplant eval at [facility] but is not currently listed for transplant. She reports a history of four prior port infections. She was last admitted to [facility] 02/2023 where she was found to have a port infection. L chest port wall Cx grew MSSA and Pseudomonas; catheter was removed and 03/05/23 catheter tip Cx with 3 morphologies of MSSA. BCx were NG. She was treated with a 14-day course of cefepime (03/1003/24/23). At the time she also had a spinal cord stimulator with a trial lead which was removed and spinal cord stimulator lead Cx were negative. Allergies Allergy/AdvReac Type Severity Reaction Status Date / Time diphenhydramine Allergy Severe Anaphylaxis Verified 12/03/23 01:23 promethazine Allergy Severe hives, Verified 12/03/23 01:23 throat swelling adhesive Allergy Intermediate Redness of Verified 12/03/23 01:23 Skin amoxicillin Allergy Intermediate RASH Verified 12/03/23 01:23 azithromycin [From Zithromax] Allergy Intermediate RASH/VOMITI Verified 12/03/23 01:23 NG calcium Allergy Intermediate SEE COMMENT Verified 12/03/23 01:23 [From VIACTIV Multi-Vitamin] cefazolin Allergy Intermediate rash Verified 12/03/23 01:23 Cephalosporins Allergy Intermediate HIVES Verified 12/03/23 01:23 clavulanic acid Allergy Intermediate HIVES Verified 12/03/23 01:23 ferric carboxymaltose Allergy Intermediate Rash Verified 12/03/23 01:23 [From Injectafer] folic acid Allergy Intermediate SEE COMMENT Verified 12/03/23 01:23 [From VIACTIV Multi-Vitamin] iron [From Venofer] Allergy Intermediate Muscle Pain Verified 12/03/23 01:23 multivitamin with minerals Allergy Intermediate SEE COMMENT Verified 12/03/23 01:23 [From VIACTIV Multi-Vitamin] Penicillins Allergy Intermediate HIVES Verified 12/03/23 01:23 prochlorperazine Allergy Intermediate HIVES Verified 12/03/23 01:23 sulfamethoxazole Allergy Intermediate RASH Verified 12/03/23 01:23 sumatriptan Allergy Intermediate RASH Verified 12/03/23 01:23 trimethoprim Allergy Intermediate RASH Verified 12/03/23 01:23 metoclopramide AdvReac Severe anxiety/ Verified 12/03/23 01:23 jittery morphine AdvReac Severe Severe Verified 12/03/23 01:23 abdominal Pain, sphincter of oddi spasms erythromycin base AdvReac Intermediate GI SYMPTOMS Verified 12/03/23 01:23 citalopram [From Celexa] AdvReac Unknown CAN'T Verified 12/03/23 01:23 REMEMBER Home Medications Medication Instructions Recorded Confirmed Type dicyclomine 10 mg capsule 20 mg PO Q6H PRN Abdominal Pain 03/07/18 12/03/23 History pantoprazole 40 mg tablet,delayed 40 mg PO QAM 09/08/19 12/03/23 History release (Protonix) famotidine 40 mg tablet 20 mg PO BID 11/28/19 12/03/23 History hydrocortisone 10 mg tablet See Rx Instructions .Route .COMPLEX 02/07/20 History fexofenadine 180 mg tablet 180 mg PO HS 10/09/20 12/03/23 History fludrocortisone 0.1 mg tablet 0.1 mg PO BID 12/12/20 12/03/23 History acetaminophen 500 mg tablet 1,000 mg PO Q6H PRN Pain 06/13/21 12/03/23 History (Tylenol Extra Strength) multivitamin with minerals-folic 2 tab PO HS 06/13/21 12/03/23 History acid 200 mcg chewable tablet (Multivitamin Gummies) turmeric 400 mg capsule 400 mg PO HS 06/13/21 12/03/23 History empty container (Enema Misc Bottle) #72 ea 01/16/22 12/03/23 Rx cholecalciferol (vitamin D3) 25 50 mcg PO QAM 04/07/22 12/03/23 History mcg (1,000 unit) capsule (Vitamin D3) duloxetine 60 mg capsule,delayed 60 mg PO QAM 04/07/22 12/03/23 History release methocarbamol 750 mg tablet 750 mg PO TID 04/07/22 12/03/23 History coenzyme Q10 100 mg capsule 100 mg PO PM 07/22/22 12/03/23 History (CoQ-10) pyridoxine (vitamin B6) 50 mg 50 mg PO QAM 07/22/22 12/03/23 History tablet ondansetron 8 mg disintegrating 8 mg PO TID PRN Nausea 10/06/22 12/03/23 History tablet fentanyl 75 mcg/hr transdermal 1 patch transdermal Q72H #10 ea 10/23/22 12/03/23 Rx patch lorazepam 2 mg/mL injection 0.5 mg (0.25 mL) buccal QID PRN 12/04/22 12/03/23 Rx solution (Ativan) Nausea #100 mL bethanechol chloride 25 mg tablet 12.5 mg (1/2 x 25 mg) PO BID PRN 12/05/22 12/03/23 Rx urinary retention #20 tabs levothyroxine 50 mcg tablet 50 mcg PO QAM 03/04/23 12/03/23 History (Synthroid) gabapentin 250 mg/5 mL oral 900 mg PO TID 03/10/23 12/03/23 History solution oxycodone 20 mg/mL oral concentrate 20 mg PO QID PRN Pain 08/05/23 12/03/23 History calcium carbonate 250 mg PO QPM 11/10/23 12/03/23 History norethindrone (contraceptive) 0.35 0.35 mg PO QAM 11/10/23 12/03/23 History mg tablet Patient History Medical History Endometrioma of ovary Urinary dysfunction Abdominal pain Pain disorder Generalized abdominal pain Hx of Clostridium difficile infection 5 years ago, tx. 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 carroll, [facility] Spinal cord stimulator status trial implanted 03/02/23, in dr. ramírez's office>advised to bring remote Chronic, continuous use of opioids Difficult intravenous access Intractable pain Abdominal pain Elevated lipase Transaminitis Colitis Chronic malnutrition Gastrostomy tube in place Intussusception hx PICC (peripherally inserted central catheter) in place TPN Pancreatitis hx Sphincter of Oddi dysfunction DECREASED GI MOTILITY Uses feeding tube gastroparesis and decreased GI motility can not tolerate feeding and uses TPN Epigastric abdominal pain Dehydration "kind of always dehydrated" Nausea Surgical History History of lysis of adhesions History of liver biopsy 2023 Hx of exploratory laparotomy History of esophagogastroduodenoscopy (EGD) Ileostomy status Hx of ileostomy Hx of colonoscopy during procedure perforated small bowel 10/27/2019 at [facility], subsequent repair of duodenal area. History of bowel resection Part of duodenum removed due to necrosis; done at [facility] 2019 History of removal of Port-a-Cath 10/13/[address] Geiger, [facility], due to bacteremia/sepsis.; "inserted and removed multiple times" History of hysterectomy 09/27/19 History of appendectomy History of vascular access device 2017; implanted and removed "several" times Family History Father Hyperlipidemia Other No significant family history Social History Smoking Status: Never smoker Second Hand Exposure: No; Do You Dip or Chew Tobacco: No; Hx Alcohol Use: No Hx Substance Use: No Preferred Language: [place] Communication Ability: Effective Visual Impairment: No Limitations Hearing Ability: Normal Dynamic Etching Processor Required: No Beliefs That Will Affect Care: Sikhism marital status: Single Current Living Situation: Parent Current Living Situation Comment: Patient lives at home with both parents current occupational status: unemployed current occupation: completed 4-year degree at [employer] How many Children do You have: 0 Other Information That Helps Us Care for You: No Feels Safe at Home: Yes Safety Concerns: Feels Safe At This Time Diet: regular Sexual Activity Comment: not sexually active Assistive Devices: Wheelchair Physical Exam Physical Exam: Exam obtained with aid of in-person telepresenter. General: Well-appearing, no acute distress HEENT: Conjunctivae non-injected, sclerae anicteric, MMM, OP clear. Resp: Respirations nonlabored. Chest: R port site indurated with surrounding mild erythema, no significant drainage noted. Abd: Soft, nontender, nondistended. PEG site with surrounding erythema and scant surrounding fluid. Ileostomy in place with liquid brown stool. Back: Tender to palpation in mid-back, but says that this is the pain that is radiating from her R chest. Ext: No joint warmth or effusions noted. Skin: RLE papular rash on acevedo (pt reports chronic for >1 year and intending to see derm). Neuro: Alert & interactive. Grossly non-focal. Psych: Pleasant, appropriate. Results & Data Vital Signs (Past 12 Hours) Vital Signs Temp Pulse Pulse Resp BP BP Pulse Ox 12/03/23 07:38 106 H 12/03/23 06:59 36.6 C 95 H 19 116/80 95 12/03/23 02:42 37 C 101 H 21 138/96 99 12/03/23 02:30 107 H 12/03/23 02:28 37.0 C 101 H 21 138/96 99 12/03/23 02:05 104 H 18 126/91 97 12/03/23 00:15 96 H 12/02/23 23:48 118 H 18 129/87 96 O2 Del Method 12/03/23 07:38 12/03/23 06:59 Room Air 12/03/23 02:42 Room Air 12/03/23 02:30 12/03/23 02:28 Room Air 12/03/23 02:05 12/03/23 00:15 12/02/23 23:48 Room Air Diagnostic Findings Diagnostics: 12/02 CXR: A port catheter is seen. The cardiomediastinal silhouette is normal. The lungs are clear. No evidence of pleural effusion or pneumothorax. Micro Data: 12/02 LLQ abd wound Cx from PEG site: PEND 12/02 BCx x2: PEND 12/01 BCx x1 peripheral: 2 of 2 bottles + Staph spp. (BCID + Staph aureus, no M ecA detected) 7/17 BCx x1 PORT: 2 of 2 bottles + Staph spp. (BCID + Staph aureus, no MecA detected) prior 03/05/23 catheter tip Cx: MSSA (3 morphologies) 03/05/23 L chest wall port site: MSSA, Pseudomonas aeruginosa 07/22/22 abd wound Cx: Staph lugdenensis 05/14/22 abd wound Cx: E. cloacae Antibiotic Summary: cefazolin (12/02 present) prior ceftriaxone (12/01)
[2023-12-03] MEDS ORDERED: PROPOFOL IV EMULSION 10 MG/ML 20 ML VIAL IV ONE (11:27)
[2023-12-03] MEDS ORDERED: ONDANSETRON INJ 2 MG/ML 2 ML VIAL ONE (11:27)
[2023-12-03] MEDS ORDERED: LIDOCAINE 2% 2 ML VIAL/AMP(20MG/ML) INFIL ONE (11:27)
[2023-12-03] MEDS ORDERED: DEXAMETHASONE SOD INJ 4 MG/ML VIAL ONE (11:27)
[2023-12-03] MEDS ORDERED: fentaNYL citrate PF 100 MCG/2 ML VIAL ONE (11:28)
[2023-12-03] MEDS ORDERED: MIDAZOLAM HCL 1 MG/ML 2ML VIAL ONE (11:28)
--- NOTE | 2023-12-03 12:10 | Anesthesiology Consultation ---
Date of Service December 03, 2023 Assessment & Plan ASA ASA3 Proposed Anesthesia Anesthesia Type: MAC Risk / Benefits Reviewed With: PT / POA / Parent / Guardian, Accepts Plan and Informed Consent Obtained History Surgery Operation Date: 12/03/23 08:10 Proposed Procedures p Port Removal - Jr Collins DO, FACS Height/Weight Height: 5 ft 6 in Weight: 67.7 kg Allergies Allergy/AdvReac Type Severity Reaction Status Date / Time diphenhydramine Allergy Severe Anaphylaxis Verified 12/03/23 01:23 promethazine Allergy Severe hives, Verified 12/03/23 01:23 throat swelling adhesive Allergy Intermediate Redness of Verified 12/03/23 01:23 Skin amoxicillin Allergy Intermediate RASH Verified 12/03/23 01:23 azithromycin [From Zithromax] Allergy Intermediate RASH/VOMITI Verified 12/03/23 01:23 NG calcium Allergy Intermediate SEE COMMENT Verified 12/03/23 01:23 [From VIACTIV Multi-Vitamin] cefazolin Allergy Intermediate rash Verified 12/03/23 01:23 Cephalosporins Allergy Intermediate HIVES Verified 12/03/23 01:23 clavulanic acid Allergy Intermediate HIVES Verified 12/03/23 01:23 ferric carboxymaltose Allergy Intermediate Rash Verified 12/03/23 01:23 [From Injectafer] folic acid Allergy Intermediate SEE COMMENT Verified 12/03/23 01:23 [From VIACTIV Multi-Vitamin] iron [From Venofer] Allergy Intermediate Muscle Pain Verified 12/03/23 01:23 multivitamin with minerals Allergy Intermediate SEE COMMENT Verified 12/03/23 01:23 [From VIACTIV Multi-Vitamin] Penicillins Allergy Intermediate HIVES Verified 12/03/23 01:23 prochlorperazine Allergy Intermediate HIVES Verified 12/03/23 01:23 sulfamethoxazole Allergy Intermediate RASH Verified 12/03/23 01:23 sumatriptan Allergy Intermediate RASH Verified 12/03/23 01:23 trimethoprim Allergy Intermediate RASH Verified 12/03/23 01:23 metoclopramide AdvReac Severe anxiety/ Verified 12/03/23 01:23 jittery morphine AdvReac Severe Severe Verified 12/03/23 01:23 abdominal Pain, sphincter of oddi spasms erythromycin base AdvReac Intermediate GI SYMPTOMS Verified 12/03/23 01:23 citalopram [From Celexa] AdvReac Unknown CAN'T Verified 12/03/23 01:23 REMEMBER Medications Home Medications Medication Instructions Recorded Confirmed Last Taken dicyclomine 10 mg capsule 20 mg PO Q6H PRN Abdominal Pain 03/07/18 12/03/23 03/05/23 08:00 pantoprazole 40 mg tablet,delayed 40 mg PO QAM 09/08/19 12/03/23 12/02/23 release (Protonix) famotidine 40 mg tablet 20 mg PO BID 11/28/19 12/03/23 12/02/23 hydrocortisone 10 mg tablet See Rx Instructions .Route .COMPLEX 02/07/20 12/03/23 12/02/23 fexofenadine 180 mg tablet 180 mg PO HS 10/09/20 12/03/23 12/02/23 fludrocortisone 0.1 mg tablet 0.1 mg PO BID 12/12/20 12/03/23 12/02/23 acetaminophen 500 mg tablet 1,000 mg PO Q6H PRN Pain 06/13/21 12/03/23 03/04/23 23:30 (Tylenol Extra Strength) multivitamin with minerals-folic 2 tab PO HS 06/13/21 12/03/23 12/02/23 acid 200 mcg chewable tablet (Multivitamin Gummies) turmeric 400 mg capsule 400 mg PO HS 06/13/21 12/03/23 12/02/23 empty container (Enema Misc Bottle) #72 ea 01/16/22 12/03/23 Unknown cholecalciferol (vitamin D3) 25 50 mcg PO QAM 04/07/22 12/03/23 12/02/23 mcg (1,000 unit) capsule (Vitamin D3) duloxetine 60 mg capsule,delayed 60 mg PO QAM 04/07/22 12/03/23 12/02/23 release methocarbamol 750 mg tablet 750 mg PO TID 04/07/22 12/03/23 12/02/23 coenzyme Q10 100 mg capsule 100 mg PO PM 07/22/22 12/03/23 12/02/23 (CoQ-10) pyridoxine (vitamin B6) 50 mg 50 mg PO QAM 07/22/22 12/03/23 12/02/23 tablet ondansetron 8 mg disintegrating 8 mg PO TID PRN Nausea 10/06/22 12/03/2303/05/23 02:00 tablet fentanyl 75 mcg/hr transdermal 1 patch transdermal Q72H #10 ea 10/23/22 12/03/23 12/02/23 patch lorazepam 2 mg/mL injection 0.5 mg (0.25 mL) buccal QID PRN 12/04/22 12/03/23 03/05/23 08:00 solution (Ativan) Nausea #100 mL bethanechol chloride 25 mg tablet 12.5 mg (1/2 x 25 mg) PO BID PRN 12/05/22 12/03/23 03/04/23 19:00 urinary retention #20 tabs levothyroxine 50 mcg tablet 50 mcg PO QAM 03/04/23 12/03/23 12/02/23 (Synthroid) gabapentin 250 mg/5 mL oral 900 mg PO TID 03/10/23 12/03/23 12/02/23 solution oxycodone 20 mg/mL oral concentrate 20 mg PO QID PRN Pain 08/05/23 12/03/23 Unknown calcium carbonate 250 mg PO QPM 11/10/23 12/03/23 12/02/23 norethindrone (contraceptive) 0.35 0.35 mg PO QAM 11/10/23 12/03/23 12/02/23 mg tablet Active Medications Generic Name Dose Route Start Last Admin Trade Name Freq PRN Reason Stop Dose Admin Bethanechol Chloride 12.5 mg 12/03/23 02:30 12/03/23 08:34 Bethanechol Chl 25 Mg Tab PO 01/02/24 02:29 12.5 mg BID PRN Administration urinary retention Dicyclomine HCl 20 mg 12/03/23 02:30 12/03/23 08:33 Dicyclomine Hcl 10 Mg Cap PO 01/02/24 02:29 20 mg Q6H PRN Administration Abdominal Pain Duloxetine HCl 60 mg 12/03/23 09:00 12/03/23 08:34 Duloxetine Hcl 60 Mg Cap PO 01/02/24 08:59 60 mg QAM EMERALD Administration Famotidine 20 mg 12/03/23 09:00 12/03/23 08:33 Famotidine 20 Mg Tab PO 01/02/24 08:59 20 mg BID EMREALD Administration Fludrocortisone Acetate 0.1 mg 12/03/23 09:00 12/03/23 08:33 Fludrocortisone Acetate 0.1 Mg Tab PO 01/02/24 08:59 0.1 mg BID EMERALD Administration Gabapentin 900 mg 12/03/23 09:00 12/03/23 08:36 Gabapentin 250 Mg/5 Ml 470 Ml Btl PO 01/02/24 08:59 900 mg TID EMERALD Administration Hydrocortisone 15 mg 12/03/23 09:00 12/03/23 08:34 Hydrocortisone 10 Mg Tab PO 01/02/24 08:59 15 mg QAM EMERALD Administration Hydromorphone HCl 1 mg 12/03/23 01:05 12/03/23 07:23 Hydromorphone Inj 1 Mg/Ml Syringe IV 12/17/23 01:04 1 mg Q4H PRN Administration Breakthrough Pain Lorazepam 0.5 mg/ Syringe 0.5 mls @ 2 mls/min 12/03/23 01:15 12/03/23 08:29 IV 01/02/24 01:14 2 mls/min QID PRN Administration Nausea Protocol Sodium Chloride 1,000 mls @ 100 mls/hr 12/03/23 02:18 12/03/23 11:45 Nss IV 12/03/23 22:17 0 mls/hr .Q10H EMERALD Infusion Cefazolin Sodium 2,000 mg in 15 mls @ 3.75 mls/min 12/03/23 07:45 12/03/23 09:35 Ancef 2000mg IV 12/17/23 07:44 3.75 mls/min Q8H EMERALD Administration Levothyroxine Sodium 50 mcg 12/03/23 06:30 12/03/23 05:15 Levothyroxine Sodium 50 Mcg Tablet PO 01/02/24 06:29 50 mcg DAILYBB EMERALD Administration Methocarbamol 750 mg 12/03/23 09:00 12/03/23 08:35 Methocarbamol 750 Mg Tablet PO 01/02/24 08:59 750 mg TID EMERALD Administration Miscellaneous 1 each 12/03/23 08:00 12/03/23 07:25 Check Fentanyl Patch Placement N/A 01/02/24 07:59 1 each QS EMERALD Administration Miscellaneous 1 each 12/03/23 08:00 12/03/23 07:43 Norethindrone (Contraceptive) 0.35 Mg - Order Awaiting Action N/A 01/02/24 07:59 Not Given QS EMERALD Ondansetron HCl 4 mg 12/03/23 03:35 12/03/23 11:04 Ondansetron Inj 2 Mg/Ml 2 Ml Vial IV 01/02/24 03:34 4 mg Q4H PRN Administration Nausea Oxycodone HCl 20 mg 12/03/23 01:01 12/03/23 11:04 Oxycodone Intensol 20 Mg/1 Ml Udp PO 12/17/23 01:00 20 mg QID PRN Administration Pain (1-10) Pantoprazole Sodium 40 mg 12/03/23 09:00 12/03/23 08:35 Pantoprazole 40 Mg Tab PO 01/02/24 08:59 40 mg QAM EMERALD Administration Pyridoxine HCl 50 mg 12/03/23 09:00 12/03/23 08:34 Pyridoxine Hcl 50 Mg Tab PO 01/02/24 08:59 50 mg QAM EMERALD Administration Vitamin D 50 mcg 12/03/23 09:00 12/03/23 08:35 Cholecalciferol 25 Mcg (1000 Units) Tab PO 01/02/24 08:59 50 mcg QAM EMERALD Administration NPO Date Last Intake of Fluids: 12/01/23 Date Last Intake of Solids: 12/03/23 Time Last Intake of Solids: 09:00 Past Medical History Medical History Endometrioma of ovary Urinary dysfunction Abdominal pain Pain disorder Generalized abdominal pain Hx of Clostridium difficile infection 5 years ago, tx. 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 carroll, [facility] Spinal cord stimulator status trial implanted 03/02/23, in dr. ramírez's office>advised to bring remote Chronic, continuous use of opioids Difficult intravenous access Intractable pain Abdominal pain Elevated lipase Transaminitis Colitis Chronic malnutrition Gastrostomy tube in place Intussusception hx PICC (peripherally inserted central catheter) in place TPN Pancreatitis hx Sphincter of Oddi dysfunction DECREASED GI MOTILITY Uses feeding tube gastroparesis and decreased GI motility can not tolerate feeding and uses TPN Epigastric abdominal pain Dehydration "kind of always dehydrated" Nausea Exercise / Class Metabolic Activity II 4-5 Yardwork/Stairs/Walk up hill Past Family History Family History Father Hyperlipidemia Other No significant family history Past Surgical History Surgical History History of lysis of adhesions History of liver biopsy 2023 Hx of exploratory laparotomy History of esophagogastroduodenoscopy (EGD) Ileostomy status Hx of ileostomy Hx of colonoscopy during procedure perforated small bowel 10/27/[address] [facility], subsequent repair of duodenal area. History of bowel resection Part of duodenum removed due to necrosis; done at [facility] 2019 History of removal of Port-a-Cath 10/13/[address] Geiger, [facility], due to bacteremia/sepsis.; "inserted and removed multiple times" History of hysterectomy 09/27/19 History of appendectomy History of vascular access device 2017; implanted and removed "several" times Past Anesthesia History No Hx of Anesthesia Complications and No Family Hx of Anesthesia Complications History of PONV No Hx of PONV and No Hx of Motion Sickness Social History Smoking Status: Never smoker Do You Dip or Chew Tobacco: No Hx Alcohol Use: No Hx Substance Use: No substance use type: does not use Review of Systems denies fever/cough/ colds/ chest pain/ SOB/ CHRISTIAN denies CHRISTIAN Physical Exam Vital Signs Last Vital Signs Temp 36.8 C 12/03/23 11:53 Pulse 115 H 12/03/23 11:53 Resp 22 12/03/23 11:53 BP 144/103 H 12/03/23 11:53 Pulse Ox 95 12/03/23 11:53 O2 Del Method Room Air 12/03/23 11:53 ENMT Mouth: no TMJ abnormality and no dentition abnormality Thyromental Distance: > or= 3.5 Finger Breadths Mallampati Class: II Neck neck extension not limited Respiratory normal respiratory effort; no respiratory distress Auscultation: lungs clear to auscultation bilaterally Cardiovascular Rate/Rhythm: regular rate and regular rhythm Neurologic moves all extremities Psychiatric Orientation: alert and oriented x 3 Testing Laboratory Results 12/03/23 01:01 12/03/23 01:01
[2023-12-03] MEDS: LACTATED RINGER'S 1,000 ML IV SCH (12:14)
[2023-12-03] MEDS: LIDOCAINE 1%/EPINEPHRINE 1:100,000 50 ML VIAL INFIL ONE (13:18)
[2023-12-03] MEDS: BUPIVACAINE 0.5 % 5 MG/1 ML MPF 30ML VIAL INJ ONE (13:20)
--- NOTE | 2023-12-03 13:33 | Operative Report ---
PG Post Operative Report Pre & Post Diagnosis Operation Date: 12/03/23 08:10 Pre-Op Diagnosis: Gram + Bacteremia, suspected port infection Post-Op Diagnosis: Gram + Bacteremia, suspected port infection I identified the patient and participated in the time-out.: Yes Procedure Operation Date: 12/03/23 08:10 Actual Procedures p Port Removal(Right) - Jr Collins DO, DAMON Surgeon Jr Collins DO, DAMON Hotel Security Officer Shelby Rajput Estimated Blood Loss 3 Findings Consistent with Post-Op Diagnosis Port removed intact. Tip sent for culture. Capsule excised. Good hemostasis. Specimens Port Port tip for culture Anesthesia Type MAC Complications none Disposition Accompanied Patient To Recovery: No Disposition: Recovery Room Indications 33-year-old female admitted with gram-positive bacteremia with suspected infected port, plan for port removal. The risks of the procedure were discussed, all questions were answered, and the patient agreed to proceed with surgery as planned. Description of Procedure The patient was properly identified, consented, and taken to the operating room where she was placed in the supine position. Patient with monitored anesthesia care was induced. SCDs and a safety belt were placed. Preoperative antibiotics were administered. The patient's right chest and neck was prepped and draped in the standard sterile fashion. Surgical timeout was performed and all parties were in agreement that this was the correct patient and procedure to be performed and we continued as planned. Local anesthetic was injected along the skin incision. A transverse incision was made through the old incision overlying the overlying the port and deepened down through the subcutaneous tissue with electrocautery. The capsule was opened. The tethering sutures were cut. The port was removed and appeared to be intact. The tip was cut and sent for culture. The remainder of the port was sent to pathology. The capsule was then excised. Pressure was held to obtain hemostasis which appeared to be excellent. The wound was copiously irrigated and hemostasis was confirmed. The skin was closed with interrupted 3-0 Vicryl deep dermal sutures, followed by 4-0 Monocryl running subcuticular suture. Dermabond was placed over the wound. The patient was extubated in the operating room and taken to the PACU where she recovered without apparent incident. All sponge, instrument and needle counts were correct at the conclusion of the procedure. The patient tolerated the procedure well. The nurse practitioner was present and scrubbed for the entire the case. She was critical in positioning the patient, prepping and draping, retraction and exposure, removal of port, closure of the incisions, placement of the dressings. I attest to the content of the Intraoperative Record and any orders documented therein. Any exceptions are noted below.
--- NOTE | 2023-12-03 14:05 | Anesthesiology Progress Note ---
Date of Service December 03, 2023 Anesthesia Post Procedure Vital Signs Vital Signs: Temp Pulse Pulse Resp BP BP Pulse Ox 12/03/23 13:55 102 H 18 126/86 94 12/03/23 13:45 103 H 20 127/83 94 12/03/23 13:39 36.8 C 110 H 23 132/84 97 12/03/23 11:53 36.8 C 115 H 22 144/103 H 95 12/03/23 07:38 106 H 12/03/23 06:59 36.6 C 95 H 19 116/80 95 12/03/23 02:42 37 C 101 H 21 138/96 99 12/03/23 02:30 107 H 12/03/23 02:28 37.0 C 101 H 21 138/96 99 12/03/23 02:05 104 H 18 126/91 97 12/03/23 00:15 96 H 12/02/23 23:48 118 H 18 129/87 96 O2 Del Method O2 Flow Rate 12/03/23 13:55 Nasal Cannula 2 12/03/23 13:45 Nasal Cannula 2 12/03/23 13:39 Nasal Cannula 2 12/03/23 11:53 Room Air 12/03/23 07:38 12/03/23 06:59 Room Air 12/03/23 02:42 Room Air 12/03/23 02:30 12/03/23 02:28 Room Air 12/03/23 02:05 12/03/23 00:15 12/02/23 23:48 Room Air Pain Intensity Right Abdomen: Pain Intensity: 5 Transfer of Care Handoff Completed per policy Notes Mental Status: alert / awake / arousable and participated in evaluation Patient Amnestic to Procedure: Yes Nausea / Vomiting: adequately controlled Pain: adequately controlled Airway Patency, RR, SpO2: stable & adequate BP & HR: stable & adequate Hydration State: stable & adequate Anesthetic Complications: no major complications apparent and Pt Satisfied with anesthetic care
--- NOTE | 2023-12-03 14:09 | XCELERA ---
[id number]
[2023-12-03 17:04] LABS: A calco-baum cmplx NotReported Not Detected (NotDetected); Bact fragilis Not Reported Not Detected (NotDetected); Blood Culture Id Panel See PCR Comment (NotDetected); C auris Not Reported Not Detected (NotDetected); Calbicans Not Reported Not Detected (NotDetected); Candida glabrata Not Reported Not Detected (NotDetected); Candida krusei Not Reported Not Detected (NotDetected); Cneoformans/gatti Not Reported Not Detected (NotDetected); Cparapsilosis Not Reported Not Detected (NotDetected); E cloacae compx Not Reported Not Detected (NotDetected); Efaecalis Not Reported Not Detected (NotDetected); Efaecium Not Reported Not Detected (NotDetected); Enterobacterales Not Reported Not Detected (NotDetected); Escherichia coli Not Reported Not Detected (NotDetected); H influenzae Not Reported Not Detected (NotDetected); K aerogenes Not Reported Not Detected (NotDetected); Koxytoca Not Reported Not Detected (NotDetected); Kpneumoniae grp Not Reported Not Detected (NotDetected); Lmonocyt Not Reported Not Detected (NotDetected); N meningitidis Not Reported Not Detected (NotDetected); P aeruginosa Not Reported Not Detected (NotDetected); Proteus spp Not Reported Not Detected (NotDetected); Salmonella spp Not Reported Not Detected (NotDetected); Staph lugdunensis Not Reported Not Detected (NotDetected); Staph spp. Not Reported DETECTED (NotDetected); Staphaureus Not Reported DETECTED (NotDetected); Staphepi Not Reported Not Detected (NotDetected); Staphylococcus spp. DETECTED (NotDetected); Stenmaltophilia Not Reported Not Detected (NotDetected); Strep agal(GrpB) Not Reported Not Detected (NotDetected); Strep pneum Not Reported Not Detected (NotDetected); Strep pyog (GrpA) Not Reported Not Detected (NotDetected); Strep spp Not Reported Not Detected (NotDetected); mecAC+MREJ Resistant Gene MRSA Not Detected (NotDetected)
--- NOTE | 2023-12-03 18:17 | Billing Data ---
Date of Service December 03, 2023 Coding Level of Care Code 48069 SUB INP/OBS CARE MIN
[2023-12-03] MEDS ORDERED: Nursing to Pharmacy Communication SCH (19:00)
[2023-12-03] MEDS: NORETHINDRONE 0.35 MG PO SCH (19:18)
[2023-12-03] MEDS: CALCIUM CARBONATE 1250MG TAB PO SCH (20:24)
[2023-12-03] MEDS: FEXOFENADINE HCL 180 MG TAB PO SCH (20:25)
[2023-12-03] MEDS ORDERED: NON-FORMULARY MEDICATION (Turmeric 400 mg Capsule) PO SCH (21:00)
[2023-12-03] MEDS ORDERED: NON-FORMULARY MEDICATION (Coenzyme Q10 [Coq-10] 100 mg capsule) PO SCH (21:00)
[2023-12-04] MEDS ORDERED: cefTRIAXone SODIUM 2,000 MG/50 ML BAG IV SCH (02:00)
[2023-12-04] MEDS ORDERED: PATIENT'S OWN ORAL CONTRACEPTIVE PO SCH (09:00)
--- NOTE | 2023-12-04 14:17 | Infectious Disease Progress Nt ---
Date of Service December 04, 2023 Assessment & Plan (1) MSSA bacteremia: (2) Port-A-Cath in place: (3) Infection due to Port-A-Cath: Plan ID Problem List: 1. MSSA bacteremia 2. Suspected R chest port infection port removed 12/02 3. R chest port in place, TPN dependence 4. Gastroparesis and chronic pain with PEG, ileostomy 5. History of port infection 6. Listed antibiotic allergies: amoxicillin (rash), cefazolin (rash) tolerates Keflex and ceftriaxone 11/2023, Bactrim (rash) Impression: Pilar Garcia is a 33-year-old woman with history of gastroparesis w/ chronic abdominal pain s/p PEG tube & ostomy placement, R chest port in place, TPN dependence, chronic pain syndrome (previously on ketamine infusion), pseudoseizures, chronic migraines, secondary hyperparathyroidism, hemorrhagic cystitis, endometriosis, who presents to [facility] on 12/03[facility]23 for GPC bacteremia, found to have MSSA bacteremia. ID is consulted for MSSA bacteremia. The patient reports that 2 days [employer]QUID LO[employer], she started having discomfort at her R chest port site, and that 1 day [employer]QU[employer] LOAD[employer] she noticed yellow, purulent drainage from the port site, and she could express pus with pushing on the site. No fevers, no chills when accessing the port. She typically has her port accessed 08/12 for TPN/fluids, and had it deaccessed. She also reports 1 week of PEG tube site redness, tenderness, and drainage. She contacted surgery who obtained blood cultures and placed her on Keflex TID she had taken 2 doses of this before she was contacted by surgery to notify her of positive BCx for GPCs, and was recommended to present to the ED. No fevers, chills, rashes at home. In the ED, afebrile T36.5 BP 129/87 HR 118 SpO2 96% RA. WBC 12.03 Cr 0.65 LFTs wnl. While in the ED, pseudoseizure event was noted. Her 12/01 BCx from both her port and peripheral BCx are growing Staph (BCID + Staph aureus, mecA negative) in all bottles. She received one dose of ceftriaxone then was changed to cefazolin. At the time of evaluation, afebrile. She reports pleuritic chest pain in her R chest that radiates to her back which is new. She also recently fell and injured her R hip, which has had stable pain. She reports that she is undergoing small bowel transplant eval at [facility] but is not currently listed for transplant. She reports a history of four prior port infections. She was last admitted to [facility] 02/2023 where she was found to have a port infection. L chest port wall Cx grew MSSA and Pseudomonas; catheter was removed and 03/05/23 catheter tip Cx with 3 morphologies of MSSA. BCx were NG. She was treated with a 14-day course of cefepime (03/1003/24/23). At the time she also had a spinal cord stimulator with a trial lead which was removed and spinal cord stimulator lead Cx were negative. Discussion Pt presented with high-grade MSSA bacteremia (and BCx + from both port and peripheral), and erythema and purulence at her port site. Suspect that the bacteremia is originally from her port. Given Staph aureus bacteremia, recommended port removal now s/p port removal on 12/02. Ideally recommend line holiday of 72 hours and clear BCx prior to replacing port. Initially BCx + MSSA on 12/01, repeat BCx on 12/02 thus far with GPCs. 12/02 TTE: LVEF normal, no regional WMAs, no significant valvular pathology, no valvular vegetation identified. Low threshold for MARLY if remains bacteremic after port removal (if BCx from 12/03 onward turn positive), and continue to repeat BCx daily until clear x48h. Would continue to monitor closely for any new/worsening focal complaints (e.g., joint pain, back pain) with low threshold to image/evaluate as possible metastatic infection. Note pt reporting pleuritic R-sided chest pain, would consider CT chest to further evaluate. If having continued mid-back pain, consider MRI spine. PEG tube site noted to have some purulent drainage as well. Will follow superficial wound cultures of drainage (though these may reflect wound colonization). Will hold off on broadening abx for now, follow Cx, and monitor for clinical improvement. Can continue cefazolin to best target MSSA. Note pt with listed abx allergies to penicillins and cefazolin though has recently tolerated Keflex and ceftriaxone. Also recommend referral to outpatient allergy to clarify abx allergies including to penicillins and cephalosporins. Currently anticipating 4-week course of abx after BCx clear, potentially longer if additional complications are identified (e.g., persistent bacteremia, metastatic spread of infection). Upon discharge can continue cefazolin 2g IV q8h or change to cefazolin 6g IV daily continuous infusion, depending on patient preference and insurance/home infusion options. Recommendations: - Continue cefazolin 2g IV q8h - Currently anticipating 4-week course of abx after BCx clear, potentially longer if additional complications are identified (e.g., persistent bacteremia, metastatic spread of infection). Upon discharge, anticipate abx regimen as follows: can continue cefazolin 2g IV q8h or change to cefazolin 6g IV daily continuous infusion, depending on patient preference and insurance/home infusion options - Low threshold for MARLY if remains bacteremic after port removal (if 12/03 BCx onwards turns positive) - Repeat BCx daily until clear x48h (ordered for 12/03 and 12/04) please order additional BCx if additional BCx return positive over the weekend - Recommend CT chest w/ contrast to further evaluate R-sided chest pain. If having continued mid-back pain, consider MRI spine. - Continue to monitor closely for any new/worsening focal complaints (e.g., joint pain, back pain) with low threshold to image/evaluate as possible metastatic infection - F/u 12/02 catheter tip Cx - F/u 12/02 PEG tube wound Cx - F/u 12/01 Staph aureus susceptibilities to ensure that organism is consistent with MSSA as per BCID - Recommend referral to outpatient allergy to clarify abx allergies including to penicillins and cephalosporins - Weekly lab monitoring while on IV antibiotics: CBC w/ diff, CMP, ESR, CRP - Ensure close follow-up with primary care - Recommend referral to local outpatient ID for follow-up if able ID will continue to follow, but does not monitor the chart or round over the weekend; covering physician can be contacted at [phone] [facility] for telephonic consultation if needed. Dr. Fito Conner will resume care of the ID service on Thursday. Talia Paz MD, MHS Infectious Diseases [facility]/ID Connect ID Connect direct line: [phone] Admission and Anticipated Discharge Date Admission Date: December 03, 2023 Subjective This patient recommendation is based on a telemedicine consult request which was completed asynchronously through chart review and information provided by the primary physician. The patient was not seen or examined today. The evaluation is consultative in nature and all patient care and treatment decisions can either be accepted or rejected by the patient's primary hospital-based treating physician using their own independent medical judgment for their patient. Time Spent Reviewing Chart: 31+ minutes - Limited EMR access and limited access to new labs/vitals today due to [employer] downtime. Discussed with Dr. Layne - Port removed 12/02 - 12/02 TTE: LVEF normal, no regional WMAs, no significant valvular pathology, no valvular vegetation identified - 12/02 BCx thus far with GPCs Results & Data Diagnostic Findings Diagnostics: 12/02 TTE: LVEF normal, no regional WMAs, no significant valvular pathology, no valvular vegetation identified 12/02 CXR: A port catheter is seen. The cardiomediastinal silhouette is normal. The lungs are clear. No evidence of pleural effusion or pneumothorax. Micro Data: 12/02 LLQ abd wound Cx from PEG site: PEND 12/02 catheter tip Cx: PEND 12/02 BCx x1 peripheral: PEND 12/02 BCx x1 PORT: 1 of 2 bottles + GPCs 12/01 BCx x1 peripheral: 2 of 2 bottles + Staph spp. (BCID + Staph aureus, no MecA detected) 12/01 BCx x1 PORT: 2 of 2 bottles + Staph spp. (BCID + Staph aureus, no MecA detected) prior 03/05/23 catheter tip Cx: MSSA (3 morphologies) 03/05/23 L chest wall port site: MSSA, Pseudomonas aeruginosa 07/22/22 abd wound Cx: Staph lugdenensis 05/14/22 abd wound Cx: E. cloacae Antibiotic Summary: cefazolin (12/02 present) prior ceftriaxone (12/01)
[2023-12-04] MEDS: fentaNYL 75 MCG/HR TDSY TD SCH (14:35)
[2023-12-04] MEDS: LIDOCAINE 5% 1 PATCH TD SCH (15:26)
[2023-12-04] MEDS: LACTATED RINGER'S 1,000 ML IV SCH (15:26)
--- NOTE | 2023-12-04 18:42 | Billing Data ---
Date of Service December 04, 2023 Coding Level of Care Code 99245 SUB INP/OBS CARE MIN
[2023-12-04] MEDS: HYOSCYAMINE SULFATE 0.125 MG TAB PO PRN (21:18)
[2023-12-04] MEDS: ACETAMINOPHEN 500 MG TAB PO PRN (21:21)
[2023-12-04] MEDS: [UNRECOGNIZED DRUG - OTHER] TD PRN (23:05)
--- NOTE | 2023-12-05 06:39 | Billing Data ---
Date of Service December 05, 2023 Coding Level of Care Code 28299 INT INP/OBS CARE
--- NOTE | 2023-12-05 07:57 | Hospitalist Progress Note ---
"Date of Service December 05, 2023 Assessment & Plan (1) Gram-positive bacteremia: (2) Methicillin susceptible Staphylococcus aureus infection: (3) Central line infection: (4) Iron deficiency anemia: (5) Witnessed seizure-like activity: (6) Abdominal pain, chronic, generalized: (7) Sinus tachycardia: (8) Secondary hyperparathyroidism: (9) Gastroparesis: (10) Urinary retention: (11) Hemorrhagic cystitis: (12) Endometriosis: Plan Pt is a 33 yo female with a past medical history most relevant for chronic port placement for TPN, endometriosis, chronic abdominal pain s/p PEG tube and ostomy placement, PNES, chronic migraines, iron deficiency anemia, and hx of superior m esenteric syndrome, hx adrenal insufficiency who presents to the hospital for abdominal pain and port associated infection with MSSA bacteremia. MSSA Bacteremia secondary to chronic port placement - Moderate erythema w/o expressible purulence at port site on admission with culture + for MSSA - Infectious Disease consulted, apprec recommendations; * Blood cultures 12/01 indicative of gram positive bacteremia MSSA * continue cefazolin q8h * Continue BCx until clear x48h, repeat drawn today - TTE; EF 60-65% no wall abnorm, no vegetations - port removed by gen surg 12/02, plan will be PICC line once culture neg 48 hours with plan to D/C on PICC and can get new port placed later with gen surg - chest CT pending Chronic Pain Syndrome | Pseudoseizures - Witnessed pseudoseizure in ED, noted to be a/w chronic pain, resolved with auditory support - Continue home medications Lorazepam 0.5 mg QID PRN Oxycodone 20 mg QID PRN Fentanyl patch 75 mcg Q 72H Gabapentin 900 mg PO TID Duloxetine 60 mg PO QAM - Additional Dilaudid 1 mg Q4h PRN for breakthrough pain Patient preference to avoid ICU/Ketamine at this time - Continue antinausea treatment with Zofran and Ativan PRN Chronic Conditions - Gastroparesis: continue home medications, PEG and ostomy care inpatient, continue PPI - Iron Deficiency Anemia: continue supplementation - Secondary Hyperparathyroidism: continue home medications - Hemorrhagic cystitis: continue bethanechol PRN Admission and Anticipated Discharge Date Admission Date: December 03, 2023 Supervising Physician Co-Signing Physician Notes I personally examined the patient and verified all solorzano points of history and exam, discussed case, and agree with decision making with Dr Jurado ongoing right-sided chest pain. Extensive discussion on septic pulmonary emboli. Discussed possibility of MARLY versus simply prolonged antibiotics. Vitals noted, in general she is awake and alert pleasant no distress. HEENT normocephalic atraumatic mucous membranes moist. Breathing unlabored no accessory muscle use good effort. Skin shows no rashes no pallor or icterus. Neuro without focal deficits. Staph bacteremiacefazolin, Consider MARLY versus prolonged treatment. Has septic pulmonary emboli. Chronic abdominal painshe relates rather significant improvement after her most recent surgery with what sounds to have been a massive lysis of adhesions. ongoing pain control Short gut/IV nutrition dependentwill obviously need to rest on peripheral lines until blood cultures are negative for at least 48 hours, possibly 72. The question will be with a lingering concern on endocarditis when she is cleared to have central IV access placed again whether or not simply replacing a port given that she will need it eventually anyway versus a PICC line given that it could be removed will need to be debated. Subjective Pt is a 33 yo female with a past medical history most relevant for chronic port placement for TPN, endometriosis, chronic abdominal pain s/p PEG tube and ostomy placement, PNES, chronic migraines, iron deficiency anemia, and hx of superior mesenteric syndrome, hx adrenal insufficiency who presents to the hospital for abdominal pain and port associated infection with MSSA bacteremia. Today, pt states she is feeling okay, not really better or worse than yesterday. She endorses RUQ abdominal pain radiating to the back that has been persistent since Thursday when she started to otherwise feel ill as well. Otherwise, no questions or complaints today and feels otherwise at her baseline. Review of Systems Review of Systems: As per HPI. Physical Exam Physical Exam: General:Alert and oriented, no acute distress, HEENT: Normocephalic, moist oral mucosa, Cardio: Regular rate and rhythm, no murmur, Resp:Lungs clear to auscultation b/l, no wheezes or rhonchi, GI: Soft, bowel sounds active Skin: Warm, pink, dry, Results & Data Results & Data Vital Signs (Past 12 Hours) Vital Signs Temp Pulse Pulse Resp BP BP Pulse Ox 12/05/23 03:04 36.8 C 85 16 123/86 96 12/04/23 23:00 133 H 12/04/23 22:52 36.4 C L 90 18 127/87 99 12/04/23 22:52 36.4 C L 90 18 127/87 99 O2 Del Method O2 Flow Rate 12/05/23 03:04 Nasal Cannula 2 12/04/23 23:00 12/04/23 22:52 Room Air 12/04/23 22:52 Room Air Resident Activity Tracking Resident Involvement: Resident Care Provided Care Provided: Adult Hospital Medicine"
[2023-12-05 08:29] LABS: Anion Gap 6 (3-11); BUN Creatinine Ratio 8.3 (10-20); Blood Urea Nitrogen 4 mg/dl (6-23); Calcium 8.4 mg/dl (8.6-10.3); Carbon Dioxide 34 mmol/L (21-32); Chloride 102 mmol/L (98-107); Est GFR (African American) > 150.0 ml/min; Est GFR (Non-African American) 130.7 ml/min; Glucose 88 mg/dl (70-99(Fasting)); Sodium 142 mmol/L (136-145)
[2023-12-05] MEDS: OPTIRAY 320 100ml IV ONE (09:07)
[2023-12-05 10:07] LABS: Anion Gap 9 (3-11); Calcium 8.5 mg/dl (8.6-10.3); Carbon Dioxide 32 mmol/L (21-32); Chloride 102 mmol/L (98-107); Magnesium 1.9 mg/dl (1.7-2.4); Potassium 3.1 mmol/L (3.5-5.1); Sodium 143 mmol/L (136-145)
[2023-12-05 10:13] LABS: BUN Creatinine Ratio 8.5 (10-20); Blood Urea Nitrogen 4 mg/dl (6-23); Creatinine Clr Calc Pharmacy 162.4 ml/min; Est GFR (African American) > 150.0 ml/min; Est GFR (Non-African American) 131.6 ml/min; Glucose 86 mg/dl (70-99(Fasting)); Phosphorus 3.7 mg/dl (2.5-4.9); Triglycerides 138 mg/dl (0-150)
[2023-12-05] MEDS: POTASSIUM CHLORIDE / WTR 10 MEQ/100 ML PLCT IV SCH (15:16)
[2023-12-05] MEDS: POTASSIUM CHLORIDE 20 MEQ/15 ML UDC PO STA (15:16)
--- NOTE | 2023-12-05 15:49 | CT Scan Report ---
CT chest diagnostic w con CLINICAL HISTORY: R sided pain, MSSA bacteremia, ?septic emboli TECHNIQUE: Multidetector row helical CT of the chest was performed with intravenous contrast. Coronal and sagittal reformations were obtained. Automated dose lowering techniques and/or adjustment accord ing to patient size were utilized for this exam. CT DOSE: 444.9 mGy.cm Comparison: Comparison is made to CT chest 10/22/2018 FINDINGS: Lungs and pleura: Atelectasis versus scarring is seen in the dependent portions of the lungs. There i s a nodular density in the right lower lobe measuring 16 mm (series 4 image 114) as well as scattered additional nodular densities in the bilateral lower lobes. Trace right pleural effusion. Heart and pericardium: Heart size is normal. No pericardial effusion. Vessels: Unremarkable. Mediastinum and harris: Unremarkable. Chest wall and lower neck: Right chest wall gas and fluid collection measures 19 mm in diameter. Diego tional adjacent foci of subcutaneous emphysema are seen. Abdomen: Unremarkable. Bones: Unremarkable. IMPRESSION: 1. Right greater than left lower lung airspace opacities are compatible with pneumonia and/or septic emboli. There is a trace right pleural effusion. 2. Right chest wall gas and fluid collection is new from prior exam, correlation with recent instrum entation is recommended as this may possibly represent an abscess. ACT 112: Negative or not required by law. Electronically signed by: Tony Barnes M.D. 12/05/2023 3:48 PM
--- NOTE | 2023-12-05 18:13 | Billing Data ---
Date of Service December 05, 2023 Coding Level of Care Code 59379 SUB INP/OBS CARE MIN
[2023-12-05] MEDS: HYDROmorphone INJ 1 MG/ML SYRINGE IV PRN (19:16)
--- NOTE | 2023-12-06 06:54 | Hospitalist Progress Note ---
"Date of Service December 06, 2023 Assessment & Plan (1) Gram-positive bacteremia: (2) Methicillin susceptible Staphylococcus aureus infection: (3) Central line infection: (4) Iron deficiency anemia: (5) Witnessed seizure-like activity: (6) Abdominal pain, chronic, generalized: (7) Sinus tachycardia: (8) Secondary hyperparathyroidism: (9) Gastroparesis: (10) Urinary retention: (11) Hemorrhagic cystitis: (12) Endometriosis: Plan Pt is a 33 yo female with a past medical history most relevant for chronic port placement for TPN, endometriosis, chronic abdominal pain s/p PEG tube and ostomy placement, PNES, chronic migraines, iron deficiency anemia, and hx of superior m esenteric syndrome, hx adrenal insufficiency who presents to the hospital for abdominal pain and port associated infection with MSSA bacteremia. MSSA Bacteremia secondary to chronic port placement - Moderate erythema w/o expressible purulence at port site on admission with culture + for MSSA - Infectious Disease consulted, apprec recommendations; * Blood cultures 12/01 indicative of gram positive bacteremia MSSA * continue cefazolin q8h * Continue BCx until clear x48h, repeat drawn today - TTE; EF 60-65% no wall abnorm, no vegetations - port removed by gen surg 12/02, plan will be PICC line once culture neg 48 hours vs new port placement when culture clear since pt will need new port regardless - chest CT; R.L opacities compatible with pneumonia/septic emboli, trace R pleural effusion, right chest wall gas and fluid collection possibly abscess - TTE neg but with bacteremia and now septic emboli in lungs, will place order for MARLY to definitely r/o endocarditis Chronic Pain Syndrome | Pseudoseizures - Witnessed pseudoseizure in ED, noted to be a/w chronic pain, resolved with auditory support - Continue home medications Lorazepam 0.5 mg QID PRN Oxycodone 20 mg QID PRN Fentanyl patch 75 mcg Q 72H Gabapentin 900 mg PO TID Duloxetine 60 mg PO QAM - Additional Dilaudid 1 mg Q4h PRN for breakthrough pain Patient preference to avoid ICU/Ketamine at this time - Continue antinausea treatment with Zofran and Ativan PRN Chronic Conditions - Gastroparesis: continue home medications, PEG and ostomy care inpatient, continue PPI - Iron Deficiency Anemia: continue supplementation - Secondary Hyperparathyroidism: continue home medications - Hemorrhagic cystitis: continue bethanechol PRN Admission and Anticipated Discharge Date Admission Date: December 03, 2023 Supervising Physician Co-Signing Physician Notes I personally examined the patient and verified all solorzano points of history and exam, discussed case, and agree with decision making with Dr Jurado Right-sided chest pain about the same as yesterday. Discussed MARLY furthershe is leaning in favor of it. Vitals noted, in general she is awake and alert pleasant no distress. HEENT normocephalic atraumatic mucous membranes moist. Breathing unlabored no accessory muscle use good effort. Skin shows no rashes no pallor or icterus. Neuro without focal deficits. Staph bacteremiacefazolin, has community-acquired bacteremia and a mild degree of persistently positive blood cultures as well as septic pulmonary emboli. At the same time, she is completely TPN dependent for nutrition and will require some degree of central IV access. Because of this, while her transthoracic echo was quite reassuring, the small but real chance that she still has endocarditis looms fairly largeand that I would harbor concerns that port placement even if she has negative blood cultures but still has active endocarditis could allow for seeding of her new port and ongoing infection; at the same time, if she does not have active endocarditis obviously it would be easier for her to have a port placed again prior to discharge rather than having a PICC line for a while and then having to get a port placed at a later date. Because of this, MARLY could be helpful in her situation. Obviously will need to discuss further with cardiology, surgery, and infectious disease tomorrow. Chronic abdominal painshe relates rather significant improvement after her most recent surgery with what sounds to have been a massive lysis of adhesions. ongoing pain control Short gut/IV nutrition dependentwill obviously need to rest on peripheral lines until blood cultures are negative for at least 48 hours, possibly 72. The question will be with a lingering concern on endocarditis when she is cleared to have central IV access placed again whether or not simply replacing a port given that she will need it eventually anyway versus a PICC line given that it could be removed will need to be debated. See above. Subjective Pt is a 33 yo female with a past medical history most relevant for chronic port placement for TPN, endometriosis, chronic abdominal pain s/p PEG tube and ostomy placement, PNES, chronic migraines, iron deficiency anemia, and hx of superior mesenteric syndrome, hx adrenal insufficiency who presents to the hospital for abdominal pain and port associated infection with MSSA bacteremia. Today, pt states she feels about the same as she did yesterday with persistent discomfort of the right lower chest wrapping around her back. She states the dilaudid doses do definitely help to control her pain better and so pain relief has been adequate, just still notes intermittent discomfort in that area. Otherwise, no changes from yesterday. No overnight events. Review of Systems Review of Systems: As per HPI. Physical Exam Physical Exam: General:Alert and oriented, no acute distress, HEENT: Normocephalic, moist oral mucosa, Cardio: Regular rate and rhythm, no murmur, Resp:Lungs clear to auscultation b/l, no wheezes or rhonchi, GI: Soft, bowel sounds active Skin: Warm, pink, dry, Results & Data Results & Data Vital Signs (Past 12 Hours) Vital Signs Temp Pulse Pulse Resp BP Pulse Ox Pulse Ox 12/06/23 03:14 36.7 C 90 18 117/81 96 12/06/23 02:00 98 12/05/23 23:00 105 H 12/05/23 22:32 36.8 C 103 H 18 132/92 98 12/05/23 19:15 12/05/23 19:12 37.0 C 95 H 17 130/89 98 O2 Del Method O2 Del Method O2 Flow Rate O2 Flow Rate 12/06/23 03:14 Nasal Cannula 2 12/06/23 02:00 Nasal Cannula 2 12/05/23 23:00 12/05/23 22:32 Nasal Cannula 2 12/05/23 19:15 Nasal Cannula 2 12/05/23 19:12 Nasal Cannula 2 Resident Activity Tracking Resident Involvement: Resident Care Provided Care Provided: Adult Hospital Medicine"
[2023-12-06 07:14] LABS: Basophils # (auto) 0.03 K/uL (0.00-0.20); Basophils % (auto) 0.5 %; Eosinophils # (auto) 0.23 K/uL (0.00-0.50); Hematocrit (blood only) 31.8 % (37.0-47.0); Hemoglobin 10.6 g/dl (12.0-16.0); Immature Granulocytes # (auto) 0.01 K/uL (0.01-0.20); Immature Granulocytes % (auto) 0.2 %; Lymphocytes % (auto) 29.3 %; Mean Corpuscular Hgb Conc 33.3 g/dL (32.0-36.0); Mean Platelet Volume 9.6 fL (9.4-12.4); Monocytes # (auto) 0.55 K/uL (0.11-0.59); Monocytes % (auto) 9.5 %; Neutrophils # (auto) 3.29 K/uL (1.40-6.50); Neutrophils % (auto) 56.5 %; Platelet Count 329 K/uL (130-400); RDW Coefficient of Variation 11.7 % (11.5-14.5); RDW Standard Deviation 39.3 fL (36.4-46.3); Red Blood Count 3.42 M/uL (4.20-5.40); White Blood Count 5.81 K/ul (4.8-10.8)
[2023-12-06 07:44] LABS: Anion Gap 7 (3-11); BUN Creatinine Ratio 6.4 (10-20); Blood Urea Nitrogen 3 mg/dl (6-23); Calcium 8.7 mg/dl (8.6-10.3); Carbon Dioxide 32 mmol/L (21-32); Chloride 102 mmol/L (98-107); Creatinine Clr Calc Pharmacy 162.4 ml/min; Est GFR (African American) > 150.0 ml/min; Est GFR (Non-African American) 131.6 ml/min; Glucose 81 mg/dl (70-99(Fasting)); Potassium 3.2 mmol/L (3.5-5.1); Sodium 141 mmol/L (136-145)
--- NOTE | 2023-12-06 15:45 | Billing Data ---
Date of Service December 06, 2023 Coding Level of Care Code 44077 SUB INP/OBS CARE MIN
[2023-12-06] MEDS: POTASSIUM CHLORIDE 20 MEQ/15 ML UDC PO STA (16:26)
[2023-12-06] MEDS: POTASSIUM CHLORIDE / WTR 10 MEQ/100 ML PLCT IV SCH (16:26)
[2023-12-07 06:12] LABS: Basophils # (auto) 0.04 K/uL (0.00-0.20); Basophils % (auto) 0.6 %; Eosinophils # (auto) 0.26 K/uL (0.00-0.50); Eosinophils % (auto) 3.9 %; Hematocrit (blood only) 33.5 % (37.0-47.0); Hemoglobin 11.2 g/dl (12.0-16.0); Immature Granulocytes # (auto) 0.01 K/uL (0.01-0.20); Immature Granulocytes % (auto) 0.1 %; Lymphocytes # (auto) 1.85 K/uL (1.20-3.40); Lymphocytes % (auto) 27.4 %; Mean Corpuscular Hgb Conc 33.4 g/dL (32.0-36.0); Mean Corpuscular Volume 92.8 fL (80.0-100.0); Mean Platelet Volume 9.7 fL (9.4-12.4); Monocytes # (auto) 0.74 K/uL (0.11-0.59); Neutrophils # (auto) 3.85 K/uL (1.40-6.50); Platelet Count 375 K/uL (130-400); RDW Coefficient of Variation 11.6 % (11.5-14.5); RDW Standard Deviation 39.1 fL (36.4-46.3); Red Blood Count 3.61 M/uL (4.20-5.40); White Blood Count 6.75 K/ul (4.8-10.8)
[2023-12-07 06:34] LABS: Calcium 8.9 mg/dl (8.6-10.3); Creatinine Clr Calc Pharmacy 152.6 ml/min; Est GFR (African American) 149.5 ml/min; Magnesium 1.8 mg/dl (1.7-2.4); Potassium 3.5 mmol/L (3.5-5.1)
--- NOTE | 2023-12-07 07:07 | Hospitalist Progress Note ---
"Date of Service December 07, 2023 Assessment & Plan (1) Gram-positive bacteremia: (2) Methicillin susceptible Staphylococcus aureus infection: (3) Central line infection: (4) Iron deficiency anemia: (5) Witnessed seizure-like activity: (6) Abdominal pain, chronic, generalized: (7) Sinus tachycardia: (8) Secondary hyperparathyroidism: (9) Gastroparesis: (10) Urinary retention: (11) Hemorrhagic cystitis: (12) Endometriosis: Plan Pt is a 33 yo female with a past medical history most relevant for chronic port placement for TPN, endometriosis, chronic abdominal pain s/p PEG tube and ostomy placement, PNES, chronic migraines, iron deficiency anemia, and hx of superior m esenteric syndrome, hx adrenal insufficiency who presents to the hospital for abdominal pain and port associated infection with MSSA bacteremia. MSSA Bacteremia secondary to chronic port placement - Moderate erythema w/o expressible purulence at port site on admission with culture + for MSSA - Infectious Disease consulted, apprec recommendations; * Blood cultures 12/01 indicative of gram positive bacteremia MSSA * continue cefazolin q8h * Continue BCx until clear x48h, repeat drawn 12/04 negative at 24 hours - TTE; EF 60-65% no wall abnorm, no vegetations - port removed by gen surg 12/02, plan will be PICC line once culture neg 48 hours vs new port placement when culture clear since pt will need new port regardless - chest CT; R.L opacities compatible with pneumonia/septic emboli, trace R pleural effusion, right chest wall gas and fluid collection possibly abscess - TTE neg but with bacteremia and now septic emboli in lungs, MARLY ordered to definitely r/o endocarditis - MARLY to [facility] done tomorrow, 12/07 - NPO at midnight Chronic Pain Syndrome | Pseudoseizures - Witnessed pseudoseizure in ED, noted to be a/w chronic pain, resolved with auditory support - Continue home medications Lorazepam 0.5 mg QID PRN Oxycodone 20 mg QID PRN Fentanyl patch 75 mcg Q 72H Gabapentin 900 mg PO TID Duloxetine 60 mg PO QAM - Additional Dilaudid 1 mg Q4h PRN for breakthrough pain Patient preference to avoid ICU/Ketamine at this time - Continue antinausea treatment with Zofran and Ativan PRN Chronic Conditions - Gastroparesis: continue home medications, PEG and ostomy care inpatient, continue PPI - Iron Deficiency Anemia: continue supplementation - Secondary Hyperparathyroidism: continue home medications - Hemorrhagic cystitis: continue bethanechol PRN FEN/GI: LR 100mL/h due to poor PO intake, NPO at midnight VTE ppx: deferred, ambulatory Admission and Anticipated Discharge Date Admission Date: December 03, 2023 Supervising Physician Co-Signing Physician Notes Attending Physician Supervision Note: I independently interviewed and examined the patient and verified the solorzano history and physical, reviewed labs and image studies and agree with findings and care plan noted above. No new concerns. Staph bacteremia - persistently positive blood cultures as well as septic pulmonary emboli. Source likely port - removed by surgery. TTE negative. -12/04 cultures neg at 48hurs. continue cefazolin - will do continuous infusions on discharge. -Will review with ID regarding the decision to place PICC vs Port and need for MARLY Chronic abdominal pain reports significant improvement after her most recent surgery with massive lysis of adhesions. ongoing pain control Short gut/IV nutrition dependentperipheral lines for now until decision for Port/PICC made. Subjective Pt is a 33 yo female with a past medical history most relevant for chronic port placement for TPN, endometriosis, chronic abdominal pain s/p PEG tube and ostomy placement, PNES, chronic migraines, iron deficiency anemia, and hx of superior mesenteric syndrome, hx adrenal insufficiency who presents to the hospital for abdominal pain and port associated infection with MSSA bacteremia. Today, pt states she feels about the same as she did yesterday with persistent discomfort of the right lower chest wrapping around her back. Pain exacerbated with inspiration, patient currently on 2L supplemental O2, notes that this makes her more comfortable. Review of Systems Review of Systems: As per HPI. Physical Exam Physical Exam: General:Alert and oriented, no acute distress, HEENT: Normocephalic, moist oral mucosa, Cardio: Regular rate and rhythm, no murmur, Resp:Lungs clear to auscultation b/l, no wheezes or rhonchi, mildly restricted lung excursion GI: Soft, bowel sounds active Skin: Warm, dry, no rashes noted Results & Data Results & Data Vital Signs (Past 12 Hours) Vital Signs Temp Pulse Resp BP BP Pulse Ox Pulse Ox 12/07/23 03:02 36.8 C 85 18 111/74 95 07/22/24 02:00 94 12/06/23 22:34 36.9 C 96 H 18 132/92 99 12/06/23 20:00 12/06/23 19:16 36.9 C 93 H 18 128/93 98 O2 Del Method O2 Del Method O2 Flow Rate O2 Flow Rate 12/07/23 03:02 Room Air 12/07/23 02:00 Nasal Cannula 2 12/06/23 22:34 Room Air 12/06/23 20:00 Nasal Cannula 2 12/06/23 19:16 Nasal Cannula 2 Resident Activity Tracking Resident Involvement: Resident Care Provided Care Provided: Adult Hospital Medicine"
--- NOTE | 2023-12-07 13:28 | Infectious Disease Progress Nt ---
Date of Service December 07, 2023 Assessment & Plan (1) MSSA bacteremia: (2) Port-A-Cath in place: (3) Infection due to Port-A-Cath: Plan This is a 33-year-old woman with history of gastroparesis w/ chronic abdominal pain s/p PEG tube & ostomy placement, R chest port in place, TPN dependence, chronic pain syndrome (previously on ketamine infusion), pseudoseizures, chronic migraines, secondary hyperparathyroidism, hemorrhagic cystitis, endometriosis, who presents to [facility] on 12/[facility]23 for GPC bacteremia, found to have MSSA bacteremia. ID is consulted for MSSA bacteremia. The patient reports that 2 days [employer], she started having discomfort at her R chest port site, and that 1 day [employer] she noticed yellow, purulent drainage from the port site, and she could express pus with pushing on the site. No fevers, no chills when accessing the port. She typically has her port accessed 08/12 for TPN/fluids, and had it deaccessed. She also reports 1 week of PEG tube site redness, tenderness, and drainage. She contacted surgery who obtained blood cultures and placed her on Keflex TID she had taken 2 doses of this before she was contacted by surgery to notify her of positive BCx for GPCs, and was recommended to present to the ED. No fevers, chills, rashes at home. In the ED, afebrile T36.5 BP 129/87 HR 118 SpO2 96% RA. WBC 12.03 Cr 0.65 LFTs wnl. While in the ED, pseudoseizure event was noted. Her 12/01 BCx from both her port and peripheral BCx are growing Staph (BCID + Staph aureus, mecA negative) in all bottles. She received one dose of ceftriaxone then was changed to cefazolin. At the time of evaluation, afebrile. She reports pleuritic chest pain in her R chest that radiates to her back which is new. She also recently fell and injured her R hip, which has had stable pain. She reports that she is undergoing small bowel transplant eval at [facility] but is not currently listed for transplant. She reports a history of four prior port infections. She was last admitted to [facility] 02/2023 where she was found to have a port infection. L chest port wall Cx grew MSSA and Pseudomonas; catheter was removed and 03/05/23 catheter tip Cx with 3 morphologies of MSSA. BCx were NG. She was treated with a 14-day course of cefepime (03/1003/24/23). At the time she also had a spinal cord stimulator with a trial lead which was removed and spinal cord stimulator lead Cx were negative. Micro; BC 12/01 4/4 MSSA BC 12/02 2/4 MSSA LLQ wound cx 12/02 MSSA Cath tip cx 12/02 MSSA BC 12/04 NGTD # MSSA bacteremia # Suspected R chest port infection port removed 12/02 # R chest port in place, TPN dependence # Gastroparesis and chronic pain with PEG, ileostomy # History of port infection # Listed antibiotic allergies: amoxicillin (rash), cefazolin (rash) tolerates Keflex and ceftriaxone 11/2023, Bactrim (rash) Discussion Pt presented with high-grade MSSA bacteremia (and BCx + from both port and peripheral), and erythema and purulence at her port site. Suspect that the bacteremia is originally from her port. Given Staph aureus bacteremia, recommended port removal now s/p port removal on 12/02. Ideally recommend line holiday of 72 hours and clear BCx prior to replacing port. Initially BCx + MSSA on 12/01, repeat BCx on 12/02 MSSA. BC 12/03 nd 12/04 NG so far. 12/02 TTE: LVEF normal, no regional WMAs, no significant valvular pathology, no valvular vegetation identified. She complained of R pleuritic and back pain A CT chest ordered because of Chest pain shows ? abscess sp Port removal and ? septic emboli. As on 12/06, she continues to have back pain PEG tube site noted to have some purulent drainage as well. CX also + MSSA. Cath tip + MSSA Recommendations: - Continue cefazolin 2g IV q8h - Obtain MARLY as ? septic emboli on CT chest - Check MRI thoracic lumbar spine to further evaluate continued R sided back pain on exam in setting of MSSA bacteremia . - Aspiration of chest port site abscess seen on Ct chest and send for aerobic/anaerobic cx - Follow up repeat BC ( 12/04) Send additional BCx if positive. - Continue to monitor closely for any new/worsening focal complaints (e.g., joint pain , headache) with low threshold to image/evaluate as possible metas tatic infection. - Recommend referral to outpatient allergy to clarify abx allergies including to penicillins and cephalosporins - Weekly lab monitoring while on IV antibiotics: CBC w/ diff, CMP, ESR, CRP - Ensure close follow-up with primary care - Recommend referral to local outpatient ID for follow-up if able Anticipate at least 4-week course of abx after BCx clear, potentially longer if additional complications are identified (e.g., persistent bacteremia, metastatic spread of infection-- septic emboi). Upon discharge, anticipate abx regimen as follows: can continue cefazolin 2g IV q8h or change to cefazolin 6g IV daily continuous infusion, depending on patient preference and insurance/home infusion options ID will continue to follow, Fito Conner MD, MPH Infectious Disease [facility], ID Division Call [phone] with questions. Admission and Anticipated Discharge Date Admission Date: December 03, 2023 Subjective Subsequent visit was provided via telemedicine using two-way real-time interactive telecommunication between the patient and the telemedicine provider. For the duration of the visit, the provider was performing the assessment from a different facility than the patient. This includesuse of bluetooth stethoscope forauscultationperformed by the telepresenter that the telemedicine provider can hear if described in the physical exam. Call Center Trainer contact information: Please call [facility] Call Center [phone]. (Phone Number For Physician Use Only) After establishing a telemedicine visit, patient was: Patient was verified with two unique identifiers Time Spent with Patient: Subsequent => 35 min Mother at bedside Afebrile ? septic emboli on CT lung ? Rght sided chest abscess at former port site Continue Right lower chest and back pain. Physical Exam Physical Exam: General: No acute distress HEENT: Anicteric sclera Resp: No increased work of breathing Chest: Former R port site - Sp removal, mild erythema, Not tender Abd: Soft, nontender, nondistended. +PEG + Ileostomy Back: Mid back Tenderness radiating to R flan and R lower chest Ext: No edema Neuro: Awake Alert oriented times 3. Non focal Psych: Pleasant, appropriate. Results & Data Vital Signs (Past 12 Hours) Vital Signs Temp Pulse Pulse Resp BP Pulse Ox Pulse Ox 12/07/23 11:43 36.7 C 92 H 13 127/90 99 12/07/23 08:06 36.9 C 90 12 98 12/07/23 07:00 12/07/23 07:00 87 12/07/23 03:02 36.8 C 85 18 111/74 95 12/07/23 02:00 94 O2 Del Method O2 Del Method O2 Flow Rate O2 Flow Rate 12/07/23 11:43 Nasal Cannula 2 12/07/23 08:06 Room Air 12/07/23 07:00 Nasal Cannula 2 12/07/23 07:00 12/07/23 03:02 Room Air 12/07/23 02:00 Nasal Cannula 2 Laboratory Results Laboratory Results - last 48 hr 12/06/23 12/06/23 12/07/23 06:42 Unknown 05:12 WBC 5.81 6.75 RBC 3.42 L 3.61 L Hgb 10.6 L 11.2 L Hct 31.8 L 33.5 L MCV 93.0 92.8 MCH 31.0 31.0 MCHC 33.3 33.4 RDW Std Deviation 39.3 39.1 RDW Coeff of Tim 11.7 11.6 Plt Count 329 375 MPV 9.6 9.7 Immature Gran % (Auto) 0.2 0.1 Neut % (Auto) 56.5 57.0 Lymph % (Auto) 29.3 27.4 [place] % (Auto) 9.5 11.0 Eos % (Auto) 4.0 3.9 Baso % (Auto) 0.5 0.6 Neut # (Auto) 3.29 3.85 Lymph # (Auto) 1.70 1.85 [place] # (Auto) 0.55 0.74 H Eos # (Auto) 0.23 0.26 Baso # (Auto) 0.03 0.04 Immature Gran # (Auto) 0.01 0.01 Sodium 141 141 Potassium 3.2 L 3.5 Chloride 102 102 Carbon Dioxide 32 32 Anion Gap 7 7 BUN 3 L 3 L Creatinine 0.47 L 0.50 L Est Cr Clr Drug Dosing 162.4 152.6 Est GFR ( Amer) > 150.0 149.5 Est GFR (Non-Af Amer) 131.6 129.0 BUN/Creatinine Ratio 6.4 L 6.0 L Glucose 81 82 Calcium 8.7 8.9 Magnesium 1.8 Nasal Screen MRSA (PCR) Negative Diagnostic Findings Microbiology 12/05/23 07:42 Blood Aerobic Blood Culture - Preliminary No growth in Aerobic bottle after 24 hours. 12/05/23 07:42 Blood Anaerobic Blood Culture - Preliminary No growth in Anaerobic bottle after 24 hours. 12/05/23 07:30 Blood Aerobic Blood Culture - Preliminary No growth in Aerobic bottle after 24 hours. 12/05/23 07:30 Blood Anaerobic Blood Culture - Preliminary No growth in Anaerobic bottle after 24 hours. 12/03/23 11:30 Abdomen, Left Lower Quadrant Gram Stain - Final 12/03/23 11:30 Abdomen, Left Lower Quadrant Wound Culture - Final Staphylococcus aureus 12/03/23 01:01 Blood Aerobic Blood Culture - Preliminary Staphylococcus aureus 12/03/23 01:01 Blood Anaerobic Blood Culture - Preliminary Staphylococcus aureus 12/03/23 Unknown Catheter Tip, A-port Catheter Tip Culture - Final Staphylococcus aureus 12/03/23 01:26 Blood Aerobic Blood Culture - Preliminary No growth in Aerobic bottle after 48 hours. 12/03/23 01:26 Blood Anaerobic Blood Culture - Final Chest CT 12/05/23 08:20 CT chest diagnostic w con CLINICAL HISTORY: R sided pain, MSSA bacteremia, ?septic emboli TECHNIQUE: Multidetector row helical CT of the chest was performed with intravenous contrast. Coronal and sagittal reformations were obtained. Automated dose lowering techniques and/or adjustment according to patient size were utilized for this exam. CT DOSE: 444.9 mGy.cm Comparison: Comparison is made to CT chest 10/22/2018 FINDINGS: Lungs and pleura: Atelectasis versus scarring is seen in the dependent portions of the lungs. There is a nodular density in the right lower lobe measuring 16 mm (series 4 image 114) as well as scattered additional nodular densities in the bilateral lower lobes. Trace right pleural effusion. Heart and pericardium: Heart size is normal. No pericardial effusion. Vessels: Unremarkable. Mediastinum and harris: Unremarkable. Chest wall and lower neck: Right chest wall gas and fluid collection measures 19 mm in diameter. Additional adjacent foci of subcutaneous emphysema are seen. Abdomen: Unremarkable. Bones: Unremarkable. IMPRESSION: 1. Right greater than left lower lung airspace opacities are compatible with pneumonia and/or septic emboli. There is a trace right pleural effusion. 2. Right chest wall gas and fluid collection is new from prior exam, correlation with recent instrumentation is recommended as this may possibly represent an abscess. ACT 112: Negative or not required by law. Electronically signed by: Tony Barnes M.D. 12/05/2023 3:48 PM Medications Administered Home Medications Medication Instructions Recorded Confirmed Last Taken dicyclomine 10 mg capsule 20 mg PO Q6H PRN Abdominal Pain 03/07/18 12/03/23 03/05/23 08:00 pantoprazole 40 mg tablet,delayed 40 mg PO QAM 09/08/19 12/03/23 12/02/23 release (Protonix) famotidine 40 mg tablet 20 mg PO BID 11/28/19 12/03/23 12/02/23 hydrocortisone 10 mg tablet See Rx Instructions .Route .COMPLEX 02/07/20 12/03/23 12/02/23 fexofenadine 180 mg tablet 180 mg PO HS 10/09/20 12/03/23 12/02/23 fludrocortisone 0.1 mg tablet 0.1 mg PO BID 12/12/20 12/03/23 12/02/23 acetaminophen 500 mg tablet 1,000 mg PO Q6H PRN Pain 06/13/21 12/03/23 03/04/23 23:30 (Tylenol Extra Strength) multivitamin with minerals-folic 2 tab PO HS 06/13/21 12/03/23 12/02/23 acid 200 mcg chewable tablet (Multivitamin Gummies) turmeric 400 mg capsule 400 mg PO HS 06/13/21 12/03/23 12/02/23 empty container (Enema Misc Bottle) #72 ea 01/16/22 12/03/23 Unknown cholecalciferol (vitamin D3) 25 50 mcg PO QAM 04/07/22 12/03/23 12/02/23 mcg (1,000 unit) capsule (Vitamin D3) duloxetine 60 mg capsule,delayed 60 mg PO QAM 04/07/22 12/03/23 12/02/23 release methocarbamol 750 mg tablet 750 mg PO TID 04/07/22 12/03/23 12/02/23 coenzyme Q10 100 mg capsule 100 mg PO PM 07/22/22 12/03/23 12/02/23 (CoQ-10) pyridoxine (vitamin B6) 50 mg 50 mg PO QAM 07/22/22 12/03/23 12/02/23 tablet ondansetron 8 mg disintegrating 8 mg PO TID PRN Nausea 10/06/22 12/03/23 03/05/23 02:00 tablet fentanyl 75 mcg/hr transdermal 1 patch transdermal Q72H #10 ea 10/23/22 12/03/23 12/02/23 patch lorazepam 2 mg/mL injection 0.5 mg (0.25 mL) buccal QID PRN 12/04/22 12/03/23 03/05/23 08:00 solution (Ativan) Nausea #100 mL bethanechol chloride 25 mg tablet 12.5 mg (1/2 x 25 mg) PO BID PRN 12/05/22 12/03/23 03/04/23 19:00 urinary retention #20 tabs levothyroxine 50 mcg tablet 50 mcg PO QAM 03/04/23 12/03/23 12/02/23 (Synthroid) gabapentin 250 mg/5 mL oral 900 mg PO TID 03/10/23 12/03/23 12/02/23 solution oxycodone 20 mg/mL oral concentrate 20 mg PO QID PRN Pain 08/05/23 12/03/23 Unknown calcium carbonate 250 mg PO QPM 11/10/23 12/03/23 12/02/23 norethindrone (contraceptive) 0.35 0.35 mg PO QAM 11/10/23 12/03/23 12/02/23 mg tablet Active Medications Generic Name Dose Route Start Last Admin Trade Name Freq PRN Reason Stop Dose Admin Acetaminophen 1,000 mg 12/03/23 02:30 12/05/23 08:07 Acetaminophen 500 Mg Tab PO 01/02/24 02:29 1,000 mg Q6H PRN Administration Pain Bethanechol Chloride 12.5 mg 12/03/23 02:30 12/07/23 08:27 Bethanechol Chl 25 Mg Tab PO 01/02/24 02:29 12.5 mg BID PRN Administration urinary retention Calcium Carbonate 0.5 tab 12/03/23 21:00 12/06/23 20:35 Calcium Carbonate 1250mg Tab PO 01/02/24 20:59 0.5 tab QPM EMERALD Administration Dicyclomine HCl 20 mg 12/03/23 02:30 12/07/23 08:27 Dicyclomine Hcl 10 Mg Cap PO 01/02/24 02:29 20 mg Q6H PRN Administration Abdominal Pain Duloxetine HCl 60 mg 12/03/23 09:00 12/07/23 08:29 Duloxetine Hcl 60 Mg Cap PO 01/02/24 08:59 60 mg QAM EMERALD Administration Famotidine 20 mg 12/03/23 09:00 12/07/23 08:28 Famotidine 20 Mg Tab PO 01/02/24 08:59 20 mg BID EMER[facility]D Administration Fentanyl 1 patch 12/04/23 09:00 12/07/23 09:34 Fentanyl 75 Mcg/Hr Tdsy TD 12/18/23 08:59 1 patch Q72H EMERALD Administration Fexofenadine HCl 180 mg 12/03/23 21:00 12/06/23 20:36 Fexofenadine Hcl 180 Mg Tab PO 01/02/24 20:59 180 mg HS EMERALD Administration Fludrocortisone Acetate 0.1 mg 12/03/23 09:00 12/07/23 08:27 Fludrocortisone Acetate 0.1 Mg Tab PO 01/02/24 08:59 0.1 mg BID EMER[facility]D Administration Gabapentin 900 mg 12/03/23 09:00 12/07/23 08:31 Gabapentin 250 Mg/5 Ml 470 Ml Btl PO 01/02/24 08:59 900 mg TID EMERALD Administration Hydrocortisone 10 mg 12/03/23 14:00 12/06/23 14:18 Hydrocortisone 10 Mg Tab PO 01/02/24 13:59 10 mg DAILY@1400 EMERALD Administration Hydrocortisone 15 mg 12/03/23 09:00 12/07/23 08:31 Hydrocortisone 10 Mg Tab PO 01/02/24 08:59 15 mg QAM [facility] Administration Hydromorphone HCl 1 mg 12/05/23 18:10 12/07/23 12:17 Hydromorphone Inj 1 Mg/Ml Syringe IV 12/17/23 01:04 1 mg Q2H PRN Administration Breakthrough Pain Hyoscyamine 0.125 mg 12/03/23 09:54 12/06/23 08:11 Hyoscyamine Sulfate 0.125 Mg Tab PO 01/02/24 09:53 0.125 mg Q6H PRN Administration GI Upset Lorazepam 0.5 mg/ Syringe 0.5 mls @ 2 mls/min 12/03/23 01:15 12/07/23 09:23 IV 01/02/24 01:14 2 mls/min QID PRN Administration Nausea Protocol Cefazolin Sodium 2,000 mg in 15 mls @ 3.75 mls/min 12/03/23 07:45 12/07/23 07:31 Ancef 2000mg IV 12/17/23 07:44 3.75 mls/min Q8H EMERAL[facility] Administration Lactated Ringer's 1,000 mls @ 100 mls/hr 12/04/23 12:00 12/07/23 07:17 Lr IV 01/03/24 11:59 Infused .Q10H EMERALD Infusion Levothyroxine Sodium 50 mcg 12/03/23 06:30 12/07/23 05:19 Levothyroxine Sodium 50 Mcg Tablet PO 01/02/24 06:29 50 mcg DAILYBB [facility] Administration Lidocaine 1 patch 12/04/23 12:00 12/07/23 12:09 Lidocaine 5% 1 Patch TD 01/03/24 11:59 Not Given Q24H [facility]D Methocarbamol 750 mg 12/03/23 09:00 12/07/23 08:27 Methocarbamol 750 Mg Tablet PO 01/02/24 08:59 750 mg TID EMERALD Administration Miscellaneous 1 each 12/04/23 08:59 12/07/23 08:30 Fentanyl Patch Remove & Waste N/A 01/03/24 08:58 1 each Q3D@0859 EMERALD Administration Miscellaneous 1 each 12/03/23 08:00 12/07/23 08:30 Check Fentanyl Patch Placement N/A 01/02/24 07:59 1 each QS EM[facility] Administration Miscellaneous 1 each 12/03/23 19:00 12/07/23 08:31 [Norethindrone 0.35mg] Patient's Own Med PO 01/02/24 18:59 1 each QAM [facility]ERALD Administration Miscellaneous 1 each 12/05/23 00:00 12/07/23 00:13 Remove Lidoderm Patch N/A 01/04/24 00:00 Not Given DAILY@0000 EMERALD Uzair Patch - Patient 1 each 12/04/23 22:39 12/04/23 23:05 's Own Med TD 01/03/24 22:38 1 patch UD PRN Administration Pain Ondansetron HCl 4 mg 12/03/23 03:35 12/07/23 07:30 Ondansetron Inj 2 Mg/Ml 2 Ml Vial IV 01/02/24 03:34 4 mg Q4H PRN Administration Nausea Oxycodone HCl 20 mg 12/03/23 01:01 12/07/23 11:01 Oxycodone Intensol 20 Mg/1 Ml Udp PO 12/17/23 01:00 20 mg QID PRN Administration Pain (1-10) Pantoprazole Sodium 40 mg 12/03/23 09:00 12/07/23 08:33 Pantoprazole 40 Mg Tab PO 01/02/24 08:59 40 mg QAM EM[facility]ALD Administration Pyridoxine HCl 50 mg 12/03/23 09:00 12/07/23 08:29 Pyridoxine Hcl 50 Mg Tab PO 01/02/24 08:59 50 mg QAM [facility] Administration Vitamin D 50 mcg 12/03/23 09:00 12/07/23 08:29 Cholecalciferol 25 Mcg (1000 Units) Tab PO 01/02/24 08:59 50 mcg QAM [facility]AL[facility] Administration
[2023-12-08 06:34] LABS: Hematocrit (blood only) 32.9 % (37.0-47.0); Mean Corpuscular Hemoglobin 31.1 pg (25.0-34.0); Mean Corpuscular Hgb Conc 33.4 g/dL (32.0-36.0); Mean Corpuscular Volume 92.9 fL (80.0-100.0); Mean Platelet Volume 9.8 fL (9.4-12.4); Platelet Count 363 K/uL (130-400); RDW Coefficient of Variation 11.6 % (11.5-14.5); RDW Standard Deviation 39.3 fL (36.4-46.3); Red Blood Count 3.54 M/uL (4.20-5.40)
[2023-12-08 06:55] LABS: Calcium 8.9 mg/dl (8.6-10.3); Creatinine Clr Calc Pharmacy 152.6 ml/min; Est GFR (African American) 149.5 ml/min; Magnesium 1.8 mg/dl (1.7-2.4); Potassium 3.1 mmol/L (3.5-5.1)
--- NOTE | 2023-12-08 07:17 | Cardiology Consultation ---
Date of Consultation December 07, 2023 Assessment & Plan (1) MSSA bacteremia: Plan 1. Endocarditis: She has evidence of bacteremia which evidently originated or infected her port, this has been removed. There is no direct evidence that she has endocarditis (no vegetation seen on transthoracic echo, no evidence of AV block or valvular abnormalities on echo) although is possible she has vegetations below the resolution of the transthoracic echo. A MARLY could be performed although that also has limited resolution but is better than transthoracic. We could consider it if it would alter her therapy. It appears from the chart that she will be having a full course of antibiotic therapy (I believe 4 weeks) therefore I am not sure there is much gained by doing a echocardiogram. If it showed vegetations and it would alter her treatment regimen then we should consider doing it. I would request that ID be contacted and pose that question, if they feel it would extend the treatment course or alter therapy then we can arrange to have the MARLY done. I would anticipate we could arrange that for Thursday if this question can be addressed. History of Present Illness Reason for Consultation: Possible MARLY Attending Physician: Catrina Turner MD History of Present Illness This is a 33-year-old woman with a long history of gastroparesis and abdominal discomfort for which she had a PEG tube, and ostomy and a port placed. I believe the port was used for TPN and blood drawing. She has had multiple ports placed and was admitted with Staph aureus bacteremia and port infection. The port was removed December 03, 2023. We are consulted for consideration of MARLY. Evaluation so far consists of an echocardiogram December 03, 2023 which showed normal left ventricular function, no valvular abnormalities and no valvular vegetation identified. This was felt to be similar to March 2022. An electrocardiogram on December 03, 2023 shows sinus rhythm with a normal OR interval.telemetry has shown no AV block. Multiple blood cultures have been drawn which were positive x 2 December 02, 2023, positive x 2 December 03, 2023 as well as a catheter tip being positive on December 03, 2023, all with what appears to be the same organism which is MSSA which is now being treated with appropriate antibiotics. 2 blood cultures on treatment on December 05, 2023 are negative. The patient was seen in her room with her mother present, she has no cardiovascular complaints. Allergies Allergy/AdvReac Type Severity Reaction Status Date / Time diphenhydramine Allergy Severe Anaphylaxis Verified 12/03/23 01:23 promethazine Allergy Severe hives, Verified 12/03/23 01:23 throat swelling adhesive Allergy Intermediate Redness of Verified 12/03/23 01:23 Skin amoxicillin Allergy Intermediate RASH Verified 12/03/23 01:23 azithromycin [From Zithromax] Allergy Intermediate RASH/VOMITI Verified 12/03/23 01:23 NG calcium Allergy Intermediate SEE COMMENT Verified 12/03/23 01:23 [From VIACTIV Multi-Vitamin] cefazolin Allergy Intermediate rash Verified 12/03/23 01:23 Cephalosporins Allergy Intermediate HIVES Verified 12/03/23 01:23 clavulanic acid Allergy Intermediate HIVES Verified 12/03/23 01:23 ferric carboxymaltose Allergy Intermediate Rash Verified 12/03/23 01:23 [From Injectafer] folic acid Allergy Intermediate SEE COMMENT Verified 12/03/23 01:23 [From VIACTIV Multi-Vitamin] iron [From Venofer] Allergy Intermediate Muscle Pain Verified 12/03/23 01:23 multivitamin with minerals Allergy Intermediate SEE COMMENT Verified 12/03/23 01:23 [From VIACTIV Multi-Vitamin] Penicillins Allergy Intermediate HIVES Verified 12/03/23 01:23 prochlorperazine Allergy Intermediate HIVES Verified 12/03/23 01:23 sulfamethoxazole Allergy Intermediate RASH Verified 12/03/23 01:23 sumatriptan Allergy Intermediate RASH Verified 12/03/23 01:23 trimethoprim Allergy Intermediate RASH Verified 12/03/23 01:23 metoclopramide AdvReac Severe anxiety/ Verified 12/03/23 01:23 jittery morphine AdvReac Severe Severe Verified 12/03/23 01:23 abdominal Pain, sphincter of oddi spasms erythromycin base AdvReac Intermediate GI SYMPTOMS Verified 12/03/23 01:23 citalopram [From Celexa] AdvReac Unknown CAN'T Verified 12/03/23 01:23 REMEMBER Home Medications Medication Instructions Recorded Confirmed Type dicyclomine 10 mg capsule 20 mg PO Q6H PRN Abdominal Pain 03/07/18 12/03/23 History pantoprazole 40 mg tablet,delayed 40 mg PO QAM 09/08/19 12/03/23 History release (Protonix) famotidine 40 mg tablet 20 mg PO BID 11/28/19 12/03/23 History hydrocortisone 10 mg tablet See Rx Instructions .Route .COMPLEX 02/07/20 12/03/23 History fexofenadine 180 mg tablet 180 mg PO HS 10/09/20 12/03/23 History fludrocortisone 0.1 mg tablet 0.1 mg PO BID 12/12/20 12/03/23 History acetaminophen 500 mg tablet 1,000 mg PO Q6H PRN Pain 06/13/21 12/03/23 History (Tylenol Extra Strength) multivitamin with minerals-folic 2 tab PO HS 06/13/21 12/03/23 History acid 200 mcg chewable tablet (Multivitamin Gummies) turmeric 400 mg capsule 400 mg PO HS 06/13/21 12/03/23 History empty container (Enema Misc Bottle) #72 ea 01/16/22 12/03/23 Rx cholecalciferol (vitamin D3) 25 50 mcg PO QAM 04/07/22 12/03/23 History mcg (1,000 unit) capsule (Vitamin D3) duloxetine 60 mg capsule,delayed 60 mg PO QAM 04/07/22 12/03/23 History release methocarbamol 750 mg tablet 750 mg PO TID 04/07/22 12/03/23 History coenzyme Q10 100 mg capsule 100 mg PO PM 07/22/22 12/03/23 History (CoQ-10) pyridoxine (vitamin B6) 50 mg 50 mg PO QAM 07/22/22 12/03/23 History tablet ondansetron 8 mg disintegrating 8 mg PO TID PRN Nausea 10/06/22 12/03/23 History tablet fentanyl 75 mcg/hr transdermal 1 patch transdermal Q72H #10 ea 10/23/22 12/03/23 Rx patch lorazepam 2 mg/mL injection 0.5 mg (0.25 mL) buccal QID PRN 12/04/22 12/03/23 Rx solution (Ativan) Nausea #100 mL bethanechol chloride 25 mg tablet 12.5 mg (1/2 x 25 mg) PO BID PRN 12/05/22 12/03/23 Rx urinary retention #20 tabs levothyroxine 50 mcg tablet 50 mcg PO QAM 03/04/23 12/03/23 History (Synthroid) gabapentin 250 mg/5 mL oral 900 mg PO TID 03/10/23 12/03/23 History solution oxycodone 20 mg/mL oral concentrate 20 mg PO QID PRN Pain 08/05/23 12/03/23 History calcium carbonate 250 mg PO QPM 11/10/23 12/03/23 History norethindrone (contraceptive) 0.35 0.35 mg PO QAM 11/10/23 12/03/23 History mg tablet Patient History Medical History Endometrioma of ovary Urinary dysfunction Abdominal pain Pain disorder Generalized abdominal pain Hx of Clostridium difficile infection 5 years ago, tx. 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 carroll, [facility] Spinal cord stimulator status trial implanted 03/02/23, in dr. ramírez's office>advised to bring remote Chronic, continuous use of opioids Difficult intravenous access Intractable pain Abdominal pain Elevated lipase Transaminitis Colitis Chronic malnutrition Gastrostomy tube in place Intussusception hx PICC (peripherally inserted central catheter) in place TPN Pancreatitis hx Sphincter of Oddi dysfunction DECREASED GI MOTILITY Uses feeding tube gastroparesis and decreased GI motility can not tolerate feeding and uses TPN Epigastric abdominal pain Dehydration "kind of always dehydrated" Nausea Surgical History History of removal of Port-a-Cath (12/03/23) Port Removal(Right) - Jr Collins, , FACS History of lysis of adhesions History of liver biopsy 2023 Hx of exploratory laparotomy History of esophagogastroduodenoscopy (EGD) Ileostomy status Hx of ileostomy Hx of colonoscopy during procedure perforated small bowel 10/27/[address] [facility], subsequent repair of duodenal area. History of bowel resection Part of duodenum removed due to necrosis; done at [facility] 2019 History of removal of Port-a-Cath 10/13/[address] Geiger, [facility], due to bacteremia/sepsis.; "inserted and removed multiple times" History of hysterectomy 09/27/19 History of appendectomy History of vascular access device 2018; implanted and removed "several" times Family History Father Hyperlipidemia Other No significant family history Social History Smoking Status: Never smoker Second Hand Exposure: No; Do You Dip or Chew Tobacco: No; Hx Alcohol Use: No Hx Substance Use: No Preferred Language: [place] Communication Ability: Effective Visual Impairment: No Limitations Hearing Ability: Normal Logging Operations Inspector Required: No Beliefs That Will Affect Care: L[employer] marital status: Single Current Living Situation: Parent Current Living Situation Comment: Patient lives at home with both parents current occupational status: unemployed current occupation: completed 4-year degree at [employer] How many Children do You have: 0 Feels Safe at Home: Yes Diet: regular Sexual Activity Comment: not sexually active Assistive Devices: Crutches and Wheelchair Physical Exam Physical Exam: Constitutional: Alert, cooperative and in no distress. Lying supine in bed. HEENT: Unremarkable Neck: No jugular venous distention, carotid pulses are normal and equal bilaterally without bruits. Pulmonary: Clear to auscultation bilaterally. Cardiac: Regular rhythm with no murmur, gallop or rub. Abdomen: Soft, nontender with normal bowel sounds. Extremities: No edema. Distal pulses intact. Neurologic: No focal findings. Skin: No rash, ecchymoses or petechiae. Results & Data Vital Signs (Past 12 Hours) Vital Signs Temp Pulse Pulse Resp BP Pulse Ox O2 Del Method 12/07/23 14:01 36.7 C 93 H 16 129/90 96 Nasal Cannula 12/07/23 13:00 92 H 12/07/23 11:43 36.7 C 92 H 13 127/90 99 Nasal Cannula 12/07/23 08:06 36.9 C 90 12 98 Room Air 12/07/23 07:00 Nasal Cannula 12/07/23 07:00 87 O2 Flow Rate 12/07/23 14:01 2 12/07/23 13:00 12/07/23 11:43 2 12/07/23 08:06 12/07/23 07:00 2 12/07/23 07:00 Laboratory Results CBC 12/08/23 Range/Units 05:21 WBC 6.30 (4.8-10.8) K/ul RBC 3.54 L (4.20-5.40) M/uL Hgb 11.0 L (12.0-16.0) g/dl Hct 32.9 L (37.0-47.0) % Plt Count 363 (130-400) K/uL Comprehensive Metabolic Panel 12/08/23 Range/Units 05:21 Sodium 142 (136-145) mmol/L Potassium 3.1 L (3.5-5.1) mmol/L Chloride 102 (98-107) mmol/L Carbon Dioxide 33 H (21-32) mmol/L BUN 3 L (6-23) mg/dl Creatinine 0.50 L (0.6-1.2) mg/dl Glucose 80 (70-99(Fasting)) mg/dl Calcium 8.9 (8.6-10.3) mg/dl Intake and Output 12/07/23 12/08/23 12/08/23 22:59 06:59 14:59 Intake Total 100 / 2038.333 938.333 / 2038.333 Balance 100 / 2038.333 938.333 / 2038.333 Intake: IV 938.333 / 1938.333 Lactated Ringer's 1,000 ml @ 938.333 / 1938.333 100 mls/hr IV .Q10H EMERALD Rx#: [id number] Oral 100 / 100 Other: # Unmeasured Voids 2 1 Weight 67.6 kg Weight Measurement Method Built in [facility] Diagnostic Findings Telemetry: Sinus rhythm throughout. No AV block. PG Care Time/CCT Total # of Minutes Spent Total Time Spent with Patient: Total time spent is greater than 50% in coordination of care (as documented) at patient's floor/unit and/or counseling patient: Coding Level of Care Code 58896 INT INP/OBS CARE 2/55MIN Diagnoses MSSA bacteremia R78.81; B95.61
[2023-12-08] MEDS: POTASSIUM CHLORIDE CRTAB 20 MEQ TABCR PO STA (08:10)
[2023-12-08] MEDS: MAGNESIUM SULFATE / D5W 1 GM/100 ML BAG IV SCH (08:11)
--- NOTE | 2023-12-08 10:14 | Hospitalist Progress Note ---
"Date of Service December 08, 2023 Assessment & Plan (1) Gram-positive bacteremia: (2) Methicillin susceptible Staphylococcus aureus infection: (3) Central line infection: (4) Iron deficiency anemia: (5) Witnessed seizure-like activity: (6) Abdominal pain, chronic, generalized: (7) Sinus tachycardia: (8) Secondary hyperparathyroidism: (9) Gastroparesis: (10) Urinary retention: (11) Hemorrhagic cystitis: (12) Endometriosis: Plan Pt is a 33 yo female with a past medical history most relevant for chronic port placement for TPN, endometriosis, chronic abdominal pain s/p PEG tube and ostomy placement, PNES, chronic migraines, iron deficiency anemia, and hx of superior m esenteric syndrome, hx adrenal insufficiency who presents to the hospital for abdominal pain and port associated infection with MSSA bacteremia. MSSA Bacteremia secondary to chronic port placement - Moderate erythema w/o expressible purulence at port site on admission with culture + for MSSA - Infectious Disease consulted, apprec recommendations; * Blood cultures 12/01 indicative of gram positive bacteremia MSSA * continue cefazolin q8h * Continue BCx until clear x48h, repeat drawn 12/04 negative at 24 hours - TTE; EF 60-65% no wall abnormal, no vegetations - port removed by gen surg 12/02, plan will be PICC line once culture neg 48 hours vs new port placement when culture clear since pt will need new port regardless - chest CT; R.L opacities compatible with pneumonia/septic emboli, trace R pleural effusion, right chest wall gas and fluid collection possibly abscess - TTE neg but with bacteremia and now septic emboli in lungs, MARLY ordered to definitely r/o endocarditis - Still need clarification from ID regarding need for MARLY, will call ID connect tomorrow AM. - MRI T-spine/L-spine ordered to r/o vertebral osteomyelitis Malnutrition: - Will likely need PICC placed for parenteral nutrition until a port can be replaced as patient does not tolerate tube feeds. Chronic Pain Syndrome | Pseudoseizures - Witnessed pseudoseizure in ED, noted to be a/w chronic pain, resolved with auditory support - Continue home medications Lorazepam 0.5 mg QID PRN Oxycodone 20 mg QID PRN Fentanyl patch 75 mcg Q 72H Gabapentin 900 mg PO TID Duloxetine 60 mg PO QAM - Additional Dilaudid 1 mg Q4h PRN for breakthrough pain Patient preference to avoid ICU/Ketamine at this time - Continue antinausea treatment with Zofran and Ativan PRN Chronic Conditions - Gastroparesis: continue home medications, PEG and ostomy care inpatient, continue PPI - Iron Deficiency Anemia: continue supplementation - Secondary Hyperparathyroidism: continue home medications - Hemorrhagic cystitis: continue bethanechol PRN FEN/GI: LR 100mL/h due to poor PO intake VTE ppx: deferred, ambulatory Admission and Anticipated Discharge Date Admission Date: December 03, 2023 Supervising Physician Co-Signing Physician Notes Attending Physician Supervision Note: I independently interviewed and examined the patient and verified the solorzano history and physical, reviewed labs and image studies and agree with findings and care plan noted above. No new concerns. Staph bacteremia - had recurrent positive blood cultures as well as possible septic pulmonary emboli on admission. Source likely port - removed by surgery. TTE negative. -12/04 cultures neg at >48hurs. continue cefazolin - will do continuous infusions on discharge. -Will review with ID regarding the decision for MARLY Chronic abdominal pain reports significant improvement after her most recent surgery with massive lysis of adhesions. ongoing pain control Short gut/IV nutrition dependentperipheral lines for now until decision for Port/PICC made. Subjective Pt is a 33 yo female with a past medical history most relevant for chronic port placement for TPN, endometriosis, chronic abdominal pain s/p PEG tube and ostomy placement, PNES, chronic migraines, iron deficiency anemia, and hx of superior mesenteric syndrome, hx adrenal insufficiency who presents to the hospital for abdominal pain and port associated infection with MSSA bacteremia. Today, pt states she feels about the same as she did yesterday with persistent discomfort of the right lower chest wrapping around her back. Denies fevers/chills but endorses central back pain along vertebral column in mid- thoracic region. Of note, patient has not had any nutrition since port removal 12/02, takes very minimal nutrition by mouth, does have a G-tube but only uses to drain, does not tolerate tube feeds. Cardiology amenable to performing MARLY, likely , if ID weighs in and obtaining MARLY would alter treatment plan. Review of Systems Review of Systems: As per HPI. Physical Exam Physical Exam: General:Alert and oriented, no acute distress, HEENT: Normocephalic, moist oral mucosa, Cardio: Regular rate and rhythm, no murmur, Resp:Lungs clear to auscultation b/l, no wheezes or rhonchi, mildly restricted lung excursion GI: Soft, bowel sounds active MSK: +TTP with palpation/percussion over spinous processes in mid-thoracic region Skin: Warm, dry, no rashes noted Results & Data Results & Data Vital Signs (Past 12 Hours) Vital Signs Temp Pulse Pulse Resp BP Pulse Ox O2 Del Method 12/08/23 08:08 36.6 C 105 H 12 103/70 96 Nasal Cannula 12/08/23 08:00 82 12/08/23 03:41 36.7 C 91 H 18 112/78 97 Nasal Cannula 12/07/23 23:09 36.7 C 115 H 18 138/100 97 Nasal Cannula 12/07/23 23:00 83 O2 Flow Rate 12/08/23 08:08 2 12/08/23 08:00 12/08/23 03:41 2.0 12/07/23 23:09 12/07/23 23:00 Resident Activity Tracking Resident Involvement: Resident Care Provided Care Provided: Adult Hospital Medicine"
--- NOTE | 2023-12-08 12:40 | Infectious Disease Progress Nt ---
Date of Service December 08, 2023 Assessment & Plan (1) MSSA bacteremia: (2) Port-A-Cath in place: (3) Infection due to Port-A-Cath: Plan This is a 33-year-old woman with history of gastroparesis w/ chronic abdominal pain s/p PEG tube & ostomy placement, R chest port in place, TPN dependence, chronic pain syndrome (previously on ketamine infusion), pseudoseizures, chronic migraines, secondary hyperparathyroidism, hemorrhagic cystitis, endometriosis, who presents to [facility] on 12/03/23 for GPC bacteremia, found to have MSSA bacteremia. ID is consulted for MSSA bacteremia. The patient reports that 2 days [employer], she started having discomfort at her R chest port site, and that 1 day [employer] she noticed yellow, purulent drainage from the port site, and she could express pus with pushing on the site. No fevers, no chills when accessing the port. She typically has her port accessed 08/12 for TPN/fluids, and had it deaccessed. She also reports 1 week of PEG tube site redness, tenderness, and drainage. She contacted surgery who obtained blood cultures and placed her on Keflex TID she had taken 2 doses of this before she was contacted by surgery to notify her of positive BCx for GPCs, and was recommended to present to the ED. No fevers, chills, rashes at home. In the ED, afebrile T36.5 BP 129/87 HR 118 SpO2 96% RA. WBC 12.03 Cr 0.65 LFTs wnl. While in the ED, pseudoseizure event was noted. Her 12/01 BCx from both her port and peripheral BCx are growing Staph (BCID + Staph aureus, mecA negative) in all bottles. She received one dose of ceftriaxone then was changed to cefazolin. At the time of evaluation, afebrile. She reports pleuritic chest pain in her R chest that radiates to her back which is new. She also recently fell and injured her R hip, which has had stable pain. She reports that she is undergoing small bowel transplant eval at [facility] but is not currently listed for transplant. She reports a history of four prior port infections. She was last admitted to [facility] 02/2023 where she was found to have a port infection. L chest port wall Cx grew MSSA and Pseudomonas; catheter was removed and 03/05/23 catheter tip Cx with 3 morphologies of MSSA. BCx were NG. She was treated with a 14-day course of cefepime (03/1003/24/23). At the time she also had a spinal cord stimulator with a trial lead which was removed and spinal cord stimulator lead Cx were negative. Micro; BC 12/01 4/4 MSSA BC 12/02 2/4 MSSA LLQ wound cx 12/02 MSSA Cath tip cx 12/02 MSSA BC 12/04 NGTD # MSSA bacteremia # Suspected R chest port infection port removed 12/02, cath tip cx MSSA # R chest port was in place, TPN dependence # Gastroparesis and chronic pain with PEG, ileostomy # History of port infection # Listed antibiotic allergies: amoxicillin (rash), cefazolin (rash) tolerates Keflex and ceftriaxone 11/2023, Bactrim (rash) Discussion Pt presented with high-grade MSSA bacteremia (and BCx + from both port and peripheral), and erythema and purulence at her port site. Suspect that the bacteremia is originally from her port. Given Staph aureus bacteremia, recommended port removal now s/p port removal on 12/02. Ideally recommend line holiday of 72 hours and clear BCx prior to replacing port. Initially BCx + MSSA on 12/01, repeat BCx on 12/02 MSSA. BC 12/04 NG so far. 12/02 TTE: LVEF normal, no regional WMAs, no significant valvular pathology, no valvular vegetation identified. She complained of R pleuritic and back pain A CT chest ordered because of Chest pain shows ? abscess sp Port removal and ? septic emboli. As on 12/06, she continues to have back pain PEG tube site noted to have some purul ent drainage as well. CX also + MSSA. Cath tip + MSSA Recommendations: - Continue cefazolin 2g IV q8h - Obtain MARLY as ? septic emboli on CT chest , will help detremine length of txt ( 4 wk vs 6 wks) - Check MRI thoracic lumbar spine to further evaluate continued R sided back pain on exam in setting of MSSA bacteremia . - Aspiration of chest port site abscess seen on Ct chest and send for aerobic/anaerobic cx - Follow up repeat BC ( 12/04) Send additional BCx if positive. - Continue to monitor closely for any new/worsening focal complaints (e.g., joint pain , headache) with low threshold to image/evaluate as possible metastatic infection. - Recommend referral to outpatient allergy to clarify abx allergies including to penicillins and cephalosporins - Weekly lab monitoring while on IV antibiotics: CBC w/ diff, CMP, ESR, CRP - Ensure close follow-up with primary care - Recommend referral to local outpatient ID for follow-up if able Anticipate at least 4-week course of abx after BCx clear, potentially longer if additional complications are identified (e.g., persistent bacteremia, metastatic spread of infection-- septic emboi, endocarditis). Upon discharge, anticipate abx regimen as follows: can continue cefazolin 2g IV q8h or change to cefazolin 6g IV daily continuous infusion, depending on patient preference and insurance/home infusion options ID will continue to follow Fito Conner MD, MPH Infectious Disease ID Connect [facility], ID Division Call [phone] with questions. Admission and Anticipated Discharge Date Admission Date: December 03, 2023 Subjective This patient recommendation is based on a telemedicine consult request which was completed asynchronously through chart review and information provided by the primary physician. The patient was not seen or examined today. The evaluation is consultative in nature and all patient care and treatment decisions can either be accepted or rejected by the patient's primary hospital-based treating physician using their own independent medical judgment for their patient. Time Spent Reviewing Chart: 11 - 20 minutes Afebrile Repeat BC NGTD Results & Data Vital Signs (Past 12 Hours) Vital Signs Temp Pulse Pulse Resp BP Pulse Ox O2 Del Method 12/08/23 11:46 84 17 129/90 96 Nasal Cannula 12/08/23 08:08 36.6 C 105 H 12 103/70 96 Nasal Cannula 12/08/23 08:00 Nasal Cannula 12/08/23 08:00 82 12/08/23 03:41 36.7 C 91 H 18 112/78 97 Nasal Cannula O2 Flow Rate 12/08/23 11:46 2 12/08/23 08:08 2 12/08/23 08:00 2 12/08/23 08:00 12/08/23 03:41 2.0 Laboratory Results Laboratory Results - last 48 hr 12/07/23 12/08/23 05:12 05:21 WBC 6.75 6.30 RBC 3.61 L 3.54 L Hgb 11.2 L 11.0 L Hct 33.5 L 32.9 L MCV 92.8 92.9 MCH 31.0 31.1 MCHC 33.4 33.4 RDW Std Deviation 39.1 39.3 RDW Coeff of Tim 11.6 11.6 Plt Count 375 363 MPV 9.7 9.8 Immature Gran % (Auto) 0.1 Neut % (Auto) 57.0 Lymph % (Auto) 27.4 [place] % (Auto) 11.0 Eos % (Auto) 3.9 Baso % (Auto) 0.6 Neut # (Auto) 3.85 Lymph # (Auto) 1.85 [place] # (Auto) 0.74 H Eos # (Auto) 0.26 Baso # (Auto) 0.04 Immature Gran # (Auto) 0.01 Sodium 141 142 Potassium 3.5 3.1 L Chloride 102 102 Carbon Dioxide 32 33 H Anion Gap 7 7 BUN 3 L 3 L Creatinine 0.50 L 0.50 L Est Cr Clr Drug Dosing 152.6 152.6 Est GFR ( Amer) 149.5 149.5 Est GFR (Non-Af Amer) 129.0 129.0 BUN/Creatinine Ratio 6.0 L 6.0 L Glucose 82 80 Calcium 8.9 8.9 Magnesium 1.8 1.8 Diagnostic Findings Microbiology 12/05/23 07:42 Blood Aerobic Blood Culture - Preliminary No growth in Aerobic bottle after 24 hours. 12/05/23 07:42 Blood Anaerobic Blood Culture - Preliminary No growth in Anaerobic bottle after 24 hours. 12/05/23 07:30 Blood Aerobic Blood Culture - Preliminary No growth in Aerobic bottle after 24 hours. 12/05/23 07:30 Blood Anaerobic Blood Culture - Preliminary No growth in Anaerobic bottle after 24 hours. 12/03/23 11:30 Abdomen, Left Lower Quadrant Gram Stain - Final 12/03/23 11:30 Abdomen, Left Lower Quadrant Wound Culture - Final Staphylococcus aureus 12/03/23 01:01 Blood Aerobic Blood Culture - Preliminary Staphylococcus aureus 12/03/23 01:01 Blood Anaerobic Blood Culture - Preliminary Staphylococcus aureus 12/03/23 Unknown Catheter Tip, A-port Catheter Tip Culture - Final Staphylococcus aureus 12/03/23 01:26 Blood Aerobic Blood Culture - Preliminary No growth in Aerobic bottle after 48 hours. 12/03/23 01:26 Blood Anaerobic Blood Culture - Final Chest CT 12/05/23 08:20 CT chest diagnostic w con CLINICAL HISTORY: R sided pain, MSSA bacteremia, ?septic emboli TECHNIQUE: Multidetector row helical CT of the chest was performed with intraven ous contrast. Coronal and sagittal reformations were obtained. Automated dose lowering techniques and/or adjustment according to patient size were utilized for this exam. CT DOSE: 444.9 mGy.cm Comparison: Comparison is made to CT chest 10/22/2018 FINDINGS: Lungs and pleura: Atelectasis versus scarring is seen in the dependent portions of the lungs. There is a nodular density in the right lower lobe measuring 16 mm (series 4 image 114) as well as scattered additional nodular densities in the bilateral lower lobes. Trace right pleural effusion. Heart and pericardium: Heart size is normal. No pericardial effusion. Vessels: Unremarkable. Mediastinum and harris: Unremarkable. Chest wall and lower neck: Right chest wall gas and fluid collection measures 19 mm in diameter. Additional adjacent foci of subcutaneous emphysema are seen. Abdomen: Unremarkable. Bones: Unremarkable. IMPRESSION: 1. Right greater than left lower lung airspace opacities are compatible with pneumonia and/or septic emboli. There is a trace right pleural effusion. 2. Right chest wall gas and fluid collection is new from prior exam, correlation with recent instrumentation is recommended as this may possibly represent an abscess. ACT 112: Negative or not required by law. Electronically signed by: Tony Barnes M.D. 12/05/2023 3:48 PM Medications Administered Home Medications Medication Instructions Recorded Confirmed Last Taken dicyclomine 10 mg capsule 20 mg PO Q6H PRN Abdominal Pain 03/07/18 12/03/23 03/05/23 08:00 pantoprazole 40 mg tablet,delayed 40 mg PO QAM 09/08/19 12/03/23 12/02/23 release (Protonix) famotidine 40 mg tablet 20 mg PO BID 11/28/19 12/03/23 12/02/23 hydrocortisone 10 mg tablet See Rx Instructions .Route .COMPLEX 02/07/20 12/03/23 12/02/23 fexofenadine 180 mg tablet 180 mg PO HS 10/09/20 12/03/23 12/02/23 fludrocortisone 0.1 mg tablet 0.1 mg PO BID 12/12/20 12/03/23 12/02/23 acetaminophen 500 mg tablet 1,000 mg PO Q6H PRN Pain 06/13/21 12/03/23 03/04/23 23:30 (Tylenol Extra Strength) multivitamin with minerals-folic 2 tab PO HS 06/13/21 12/03/23 12/02/23 acid 200 mcg chewable tablet (Multivitamin Gummies) turmeric 400 mg capsule 400 mg PO HS 06/13/21 12/03/23 12/02/23 empty container (Enema Misc Bottle) #72 ea 01/16/22 12/03/23 Unknown cholecalciferol (vitamin D3) 25 50 mcg PO QAM 04/07/22 12/03/23 12/02/23 mcg (1,000 unit) capsule (Vitamin D3) duloxetine 60 mg capsule,delayed 60 mg PO QAM 04/07/22 12/03/23 12/02/23 release methocarbamol 750 mg tablet 750 mg PO TID 04/07/22 12/03/23 12/02/23 coenzyme Q10 100 mg capsule 100 mg PO PM 07/22/22 12/03/23 12/02/23 (CoQ-10) pyridoxine (vitamin B6) 50 mg 50 mg PO QAM 07/22/22 12/03/23 12/02/23 tablet ondansetron 8 mg disintegrating 8 mg PO TID PRN Nausea 10/06/22 12/03/23 03/05/23 02:00 tablet fentanyl 75 mcg/hr transdermal 1 patch transdermal Q72H #10 ea 10/23/22 12/03/23 12/02/23 patch lorazepam 2 mg/mL injection 0.5 mg (0.25 mL) buccal QID PRN 12/04/22 12/03/23 03/05/23 08:00 solution (Ativan) Nausea #100 mL bethanechol chloride 25 mg tablet 12.5 mg (1/2 x 25 mg) PO BID PRN 12/05/22 12/03/23 03/04/23 19:00 urinary retention #20 tabs levothyroxine 50 mcg tablet 50 mcg PO QAM 03/04/23 12/03/23 12/02/23 (Synthroid) gabapentin 250 mg/5 mL oral 900 mg PO TID 03/10/23 12/03/23 12/02/23 solution oxycodone 20 mg/mL oral concentrate 20 mg PO QID PRN Pain 08/05/23 12/03/23 Unknown calcium carbonate 250 mg PO QPM 11/10/23 12/03/23 12/02/23 norethindrone (contraceptive) 0.35 0.35 mg PO QAM 11/10/23 12/03/23 12/02/23 mg tablet Active Medications Generic Name Dose Route Start Last Admin Trade Name Freq PRN Reason Stop Dose Admin Acetaminophen 1,000 mg 12/03/23 02:30 12/05/23 08:07 Acetaminophen 500 Mg Tab PO 01/02/24 02:29 1,000 mg Q6H PRN Administration Pain Bethanechol Chloride 12.5 mg 12/03/23 02:30 12/08/23 08:22 Bethanechol Chl 25 Mg Tab PO 01/02/24 02:29 12.5 mg BID PRN Administration urinary retention Calcium Carbonate 0.5 tab 12/03/23 21:00 12/07/23 20:56 Calcium Carbonate 1250mg Tab PO 01/02/24 20:59 0.5 tab QPM EMERALD Administration Dicyclomine HCl 20 mg 12/03/23 02:30 12/07/23 21:00 Dicyclomine Hcl 10 Mg Cap PO 01/02/24 02:29 20 mg Q6H PRN Administration Abdominal Pain Duloxetine HCl 60 mg 12/03/23 09:00 12/08/23 08:16 Duloxetine Hcl 60 Mg Cap PO 01/02/24 08:59 60 mg QAM EMERALD Administration Famotidine 20 mg 12/03/23 09:00 12/08/23 08:16 Famotidine 20 Mg Tab PO 01/02/24 08:59 20 mg BID EMERALD Administration Fentanyl 1 patch 12/04/23 09:00 12/07/23 09:34 Fentanyl 75 Mcg/Hr Tdsy TD 12/18/23 08:59 1 patch Q72H EMERALD Administration Fexofenadine HCl 180 mg 12/03/23 21:00 12/07/23 20:57 Fexofenadine Hcl 180 Mg Tab PO 01/02/24 20:59 180 mg HS EMERALD Administration Fludrocortisone Acetate 0.1 mg 12/03/23 09:00 12/08/23 08:16 Fludrocortisone Acetate 0.1 Mg Tab PO 01/02/24 08:59 0.1 mg BID EMERALD Administration Gabapentin 900 mg 12/03/23 09:00 12/08/23 08:11 Gabapentin 250 Mg/5 Ml 470 Ml Btl PO 01/02/24 08:59 900 mg TID EMERALD Administration Hydrocortisone 10 mg 12/03/23 14:00 12/07/23 14:59 Hydrocortisone 10 Mg Tab PO 01/02/24 13:59 10 mg DAILY@1400 EMERALD Administration Hydrocortisone 15 mg 12/03/23 09:00 12/08/23 08:17 Hydrocortisone 10 Mg Tab PO 01/02/24 08:59 15 mg QAM EMERALD Administration Hydromorphone HCl 1 mg 12/05/23 18:10 12/08/23 12:43 Hydromorphone Inj 1 Mg/Ml Syringe IV 12/17/23 01:04 1 mg Q2H PRN Administration Breakthrough Pain Hyoscyamine 0.125 mg 12/03/23 09:54 12/06/23 08:11 Hyoscyamine Sulfate 0.125 Mg Tab PO 01/02/24 09:53 0.125 mg Q6H PRN Administration GI Upset Lorazepam 0.5 mg/ Syringe 0.5 mls @ 2 mls/min 12/03/23 01:15 12/08/23 09:14 IV 01/02/24 01:14 2 mls/min QID PRN Administration Nausea Protocol Cefazolin Sodium 2,000 mg in 15 mls @ 3.75 mls/min 12/03/23 07:45 12/08/23 08:11 Ancef 2000mg IV 12/17/23 07:44 3.75 mls/min Q8H EMERALD Administration Lactated Ringer's 1,000 mls @ 100 mls/hr 12/04/23 12:00 12/08/23 02:49 Lr IV 01/03/24 11:59 100 mls/hr .Q10H EMERALD Administration Levothyroxine Sodium 50 mcg 12/03/23 06:30 12/08/23 06:00 Levothyroxine Sodium 50 Mcg Tablet PO 01/02/24 06:29 50 mcg DAILYBB EMERALD Administration Lidocaine 1 patch 12/04/23 12:00 12/08/23 12:43 Lidocaine 5% 1 Patch TD 01/03/24 11:59 1 patch Q24H EMERALD Administration Methocarbamol 750 mg 12/03/23 09:00 12/08/23 08:17 Methocarbamol 750 Mg Tablet PO 01/02/24 08:59 750 mg TID EMERALD Administration Miscellaneous 1 each 12/04/23 08:59 12/07/23 08:30 Fentanyl Patch Remove & Waste N/A 01/03/24 08:58 1 each Q3D@0859 EMERALD Administration Miscellaneous 1 each 12/03/23 08:00 12/08/23 08:12 Check Fentanyl Patch Placement N/A 01/02/24 07:59 1 each QS EMERALD Administration Miscellaneous 1 each 12/03/23 19:00 12/08/23 08:18 [Norethindrone 0.35mg] Patient's Own Med PO 01/02/24 18:59 1 each QAM EMERALD Administration Miscellaneous 1 each 12/05/23 00:00 12/08/23 00:11 Remove Lidoderm Patch N/A 01/04/24 00:00 Not Given DAILY@0000 EMERALD Uzair Patch - Patient 1 each 12/04/23 22:39 12/04/23 23:05 's Own Med TD 01/03/24 22:38 1 patch UD PRN Administration Pain Ondansetron HCl 4 mg 12/03/23 03:35 12/08/23 12:43 Ondansetron Inj 2 Mg/Ml 2 Ml Vial IV 01/02/24 03:34 4 mg Q4H PRN Administration Nausea Oxycodone HCl 20 mg 12/03/23 01:01 12/07/23 19:54 Oxycodone Intensol 20 Mg/1 Ml Udp PO 12/17/23 01:00 20 mg QID PRN Administration Pain (1-10) Pantoprazole Sodium 40 mg 12/03/23 09:00 12/08/23 08:17 Pantoprazole 40 Mg Tab PO 01/02/24 08:59 40 mg QAM EMERALD Administration Pyridoxine HCl 50 mg 12/03/23 09:00 12/08/23 08:17 Pyridoxine Hcl 50 Mg Tab PO 01/02/24 08:59 50 mg QAM EMERALD Administration Vitamin D 50 mcg 12/03/23 09:00 12/08/23 08:16 Cholecalciferol 25 Mcg (1000 Units) Tab PO 01/02/24 08:59 50 mcg QAM EMERALD Administration
[2023-12-08] MEDS: GADOBUTROL 65ML VIAL IV ONE (21:57)
--- NOTE | 2023-12-09 00:48 | Magnetic Resonance Report ---
Exam(s): MRI T SPINE W/WO Contrast IV Amt: 6.5ml gadavist EXAM: MR Thoracic Spine Without and With Intravenous Contrast CLINICAL HISTORY: Reason for exam: R sided back pain in setting of MSSA bacteremia. TECHNIQUE: Magnetic resonance images of the thoracic spine without and with intravenous contrast in multiple planes. CONTRAST: Patient received 6.5ml gadavist of IV contrast COMPARISON: MRI T-spine 11-08-2014. FINDINGS: Vertebrae: Moderate levoscoliosis and increased thoracic kyphosis. No acute fracture. Discs/spinal canal/neural foramina: No acute findings. No significant disc disease. No spinal canal stenosis. Spinal cord: Unremarkable. Normal signal. No abnormal enhancement. Soft tissues: Right pleural effusion. IMPRESSION: No evidence of acute thoracic spine pathology. Electronically signed by: Janae Hernandez MD 12/09/23 00:47 AM
--- NOTE | 2023-12-09 01:01 | Magnetic Resonance Report ---
Exam(s): MRI L SPINE W/WO Contrast IV Amt: 6.5ml gadavist EXAM: MR Lumbar Spine Without and With Intravenous Contrast CLINICAL HISTORY: Reason for exam: R sided back pain in setting of MSSA bacteremia. TECHNIQUE: Magnetic resonance images of the lumbar spine without and with intravenous contrast in multiple planes. CONTRAST: Patient received 6.5ml gadavist of IV contrast COMPARISON: Comparison made to prior CT scan of the pelvis from August 18, 2023. FINDINGS: Vertebrae: Mild dextroscoliosis and normal lumbar lordosis. No acute fracture. Spinal cord: The conus is normal size, shape and signal characteristics, terminating at L1-L2. No abnormal enhancement. Soft tissues: Unremarkable. DISCS/SPINAL CANAL/NEURAL FORAMINA: L1-L2: Unremarkable. No significant disc disease. No stenosis. L2-L3: Unremarkable. No significant disc disease. No stenosis. L3-L4: Unremarkable. No significant disc disease. No stenosis. L4-L5: Unremarkable. No significant disc disease. No stenosis. L5-S1: Unremarkable. No significant disc disease. No stenosis. IMPRESSION: No evidence of acute lumbar spine pathology. Electronically signed by: Janae Hernandez MD 12/09/23 01:00 AM
[2023-12-09 06:36] LABS: Hematocrit (blood only) 32.2 % (37.0-47.0); Hemoglobin 10.6 g/dl (12.0-16.0); Mean Corpuscular Hemoglobin 30.3 pg (25.0-34.0); Mean Corpuscular Hgb Conc 32.9 g/dL (32.0-36.0); Mean Platelet Volume 9.7 fL (9.4-12.4); Platelet Count 369 K/uL (130-400); RDW Coefficient of Variation 11.8 % (11.5-14.5); RDW Standard Deviation 39.8 fL (36.4-46.3); White Blood Count 6.87 K/ul (4.8-10.8)
[2023-12-09 06:59] LABS: BUN Creatinine Ratio 3.8 (10-20); Calcium 8.6 mg/dl (8.6-10.3); Creatinine Clr Calc Pharmacy 146.7 ml/min; Est GFR (African American) 147.6 ml/min; Est GFR (Non-African American) 127.3 ml/min; Potassium 3.3 mmol/L (3.5-5.1)
[2023-12-09] MEDS: POTASSIUM CHLORIDE CRTAB 20 MEQ TABCR PO STA (08:01)
--- NOTE | 2023-12-09 10:36 | Infectious Disease Progress Nt ---
Date of Service December 09, 2023 Assessment & Plan (1) MSSA bacteremia: (2) Port-A-Cath in place: (3) Infection due to Port-A-Cath: Plan This is a 33-year-old woman with history of gastroparesis w/ chronic abdominal pain s/p PEG tube & ostomy placement, R chest port in place, TPN dependence, chronic pain syndrome (previously on ketamine infusion), pseudoseizures, chronic migraines, secondary hyperparathyroidism, hemorrhagic cystitis, endometriosis, who presents to [facility] on 12/[facility]/23 for GPC bacteremia, found to have MSSA bacteremia. ID is consulted for MSSA bacteremia. The patient reports that 2 days [employer], she started having discomfort at her R chest port site, and that 1 day [employer] she noticed yellow, purulent drainage from the port site, and she could express pus with pushing on the site. No fevers, no chills when accessing the port. She typically has her port accessed 08/12 for TPN/fluids, and had it deaccessed. She also reports 1 week of PEG tube site redness, tenderness, and drainage. She contacted surgery who obtained blood cultures and placed her on Keflex TID she had taken 2 doses of this before she was contacted by surgery to notify her of positive BCx for GPCs, and was recommended to present to the ED. No fevers, chills, rashes at home. In the ED, afebrile T36.5 BP 129/87 HR 118 SpO2 96% RA. WBC 12.03 Cr 0.65 LFTs wnl. While in the ED, pseudoseizure event was noted. Her 12/01 BCx from both her port and peripheral BCx are growing Staph (BCID + Staph aureus, mecA negative) in all bottles. She received one dose of ceftriaxone then was changed to cefazolin. At the time of evaluation, afebrile. She reports pleuritic chest pain in her R chest that radiates to her back which is new. She also recently fell and injured her R hip, which has had stable pain. She reports that she is undergoing small bowel transplant eval at [facility] but is not currently listed for transplant. She reports a history of four prior port infections. She was last admitted to [facility] 02/2023 where she was found to have a port infection. L chest port wall Cx grew MSSA and Pseudomonas; catheter was removed and 03/05/23 catheter tip Cx with 3 morphologies of MSSA. BCx were NG. She was treated with a 14-day course of cefepime (03/1003/24/23). At the time she also had a spinal cord stimulator with a trial lead which was removed and spinal cord stimulator lead Cx were negative. Micro; BC 12/01 4/4 MSSA BC 12/02 2/4 MSSA LLQ wound cx 12/02 MSSA Cath tip cx 12/02 MSSA BC 12/04 NGTD # MSSA bacteremia # Suspected R chest port infection port removed 12/02, cath tip cx MSSA # R chest port was in place, TPN dependence # Gastroparesis and chronic pain with PEG, ileostomy # History of port infection # Listed antibiotic allergies: amoxicillin (rash), cefazolin (rash) tolerates Keflex and ceftriaxone 11/2023, Bactrim (rash) Discussion Pt presented with high-grade MSSA bacteremia (and BCx + from both port and peripheral), and erythema and purulence at her port site. Suspect that the bacteremia is originally from her port. Given Staph aureus bacteremia, recommended port removal now s/p port removal on 12/02. Ideally recommend line holiday of 72 hours and clear BCx prior to replacing port. Initially BCx + MSSA on 12/01, repeat BCx on 12/02 MSSA. BC 12/04 NG so far. 12/02 TTE: LVEF normal, no regional WMAs, no significant valvular pathology, no valvular vegetation identified. She complained of R pleuritic and back pain A CT chest ordered because of Chest pain shows ? abscess sp Port removal and ? septic emboli. As on 12/06, she continues to have back pain PEG tube site noted to have some purul ent drainage as well. CX also + MSSA. Cath tip + MSSA MRI spine L-T with no acute findings or bone involvment. 12/08- she developed R shoulder pain overnight. She now has new crepitus at R chest and decreased ROM of shoulder- R/O increased abcess, SSTI, septic joint Recommendations: - Continue cefazolin 2g IV q8h - R shoulder/chest wall CT scan in setting of MSSA bacteremia , new R shoulder pain and crepitus on exam. - Obtain MARLY as ? septic emboli on CT chest , will help determine length of txt ( 4 wk vs 6 wks) - Aspiration of chest port site abscess seen on Ct chest and send for aerobic/anaerobic cx - Follow up repeat BC ( 12/04) Send additional BCx if positive. - Continue to monitor closely for any new/worsening focal complaints (e.g., joint pain , headache) with low threshold to image/evaluate as possible metastatic infection. - Recommend referral to outpatient allergy to clarify abx allergies including to penicillins and cephalosporins - Weekly lab monitoring while on IV antibiotics: CBC w/ diff, CMP, ESR, CRP - Ensure close follow-up with primary care - Recommend referral to local outpatient ID for follow-up if able Anticipate at least 4-week course of abx after BCx clear, potentially longer if additional complications are identified (e.g., persistent bacteremia, metastatic spread of infection-- septic emboi, endocarditis). Upon discharge, anticipate abx regimen as follows: can continue cefazolin 2g IV q8h or change to cefazolin 6g IV daily continuous infusion, depending on patient preference and insurance/home infusion options Discussed recs with resident and need for R shoulder imaging. ID will continue to follow Fito Conner MD, MPH Infectious Disease [facility], ID Division Call [phone] with questions. Admission and Anticipated Discharge Date Admission Date: December 03, 2023 Subjective Subsequent visit was provided via telemedicine using two-way real-time interactive telecommunication between the patient and the telemedicine provider. For the duration of the visit, the provider was performing the assessment from a different facility than the patient. This includesuse of bluetooth stethoscope forauscultationperformed by the telepresenter that the telemedicine provider can hear if described in the physical exam. [facility] contact information: Please call [facility] Call Center [phone]. (Phone Number For Physician Use Only) After establishing a telemedicine visit, patient was: Patient was verified with two unique identifiers Time Spent with Patient: Subsequent => 25 min She complains of R shoulder pain today. This developed overnight Some crepitus Right shoulder and chest wall on exam Afebrile No evidence of bone involvement on MRI spine Physical Exam Physical Exam: General: No acute distress HEENT: Anicteric sclera Resp: No increased work of breathing Chest: Former R port site - Sp removal, mild erythema, Not tender New R chest wall crepitus Abd: Soft, nontender, nondistended. +PEG + Ileostomy Back: Mid back Tenderness radiating to R flank and R lower chest , NEW R shoulder tenderness and crepitus radiating from R chest wall to shoulder. Decreased R shoulder ROM 2/2 pain. No warmth or erythema. Ext: No edema Neuro: Awake Alert oriented times 3. Non focal Psych: Pleasant, appropriate. Results & Data Vital Signs (Past 12 Hours) Vital Signs Temp Pulse Pulse Resp BP Pulse Ox Pulse Ox 12/09/23 08:15 12/09/23 07:34 95 H 12/09/23 07:16 36.8 C 95 H 17 111/76 96 12/09/23 04:06 36.8 C 86 14 113/82 98 12/09/23 02:00 99 12/08/23 23:42 36.8 C 101 H 15 138/96 98 12/08/23 23:00 106 H O2 Del Method O2 Del Method O2 Flow Rate O2 Flow Rate 12/09/23 08:15 Nasal Cannula 2 12/09/23 07:34 12/09/23 07:16 Nasal Cannula 2 12/09/23 04:06 Nasal Cannula 2 12/09/23 02:00 Nasal Cannula 2 12/08/23 23:42 Room Air 12/08/23 23:00 Laboratory Results Short CBC 12/09/23 Range/Units 05:56 WBC 6.87 (4.8-10.8) K/ul Hgb 10.6 L (12.0-16.0) g/dl Hct 32.2 L (37.0-47.0) % Plt Count 369 (130-400) K/uL BMP 12/09/23 05:56 Sodium 142 Potassium 3.3 L Chloride 104 Carbon Dioxide 32 BUN 2 L Creatinine 0.52 L Glucose 86 Calcium 8.6 Diagnostic Findings Microbiology 12/05/23 07:42 Blood Aerobic Blood Culture - Preliminary No growth in Aerobic bottle after 24 hours. 12/05/23 07:42 Blood Anaerobic Blood Culture - Preliminary No growth in Anaerobic bottle after 24 hours. 12/05/23 07:30 Blood Aerobic Blood Culture - Preliminary No growth in Aerobic bottle after 24 hours. 12/05/23 07:30 Blood Anaerobic Blood Culture - Preliminary No growth in Anaerobic bottle after 24 hours. 12/03/23 11:30 Abdomen, Left Lower Quadrant Gram Stain - Final 12/03/23 11:30 Abdomen, Left Lower Quadrant Wound Culture - Final Staphylococcus aureus 12/03/23 01:01 Blood Aerobic Blood Culture - Preliminary Staphylococcus aureus 12/03/23 01:01 Blood Anaerobic Blood Culture - Preliminary Staphylococcus aureus 12/03/23 Unknown Catheter Tip, A-port Catheter Tip Culture - Final Staphylococcus aureus 12/03/23 01:26 Blood Aerobic Blood Culture - Preliminary No growth in Aerobic bottle after 48 hours. 12/03/23 01:26 Blood Anaerobic Blood Culture - Final Lumbar Spine MRI 12/08/23 09:36 Exam(s): MRI L SPINE W/WO Contrast IV Amt: 6.5ml gadavist EXAM: MR Lumbar Spine Without and With Intravenous Contrast CLINICAL HISTORY: Reason for exam: R sided back pain in setting of MSSA bacteremia. TECHNIQUE: Magnetic resonance images of the lumbar spine without and with intravenous contrast in multiple planes. CONTRAST: Patient received 6.5ml gadavist of IV contrast COMPARISON: Comparison made to prior CT scan of the pelvis from August 18, 2023. FINDINGS: Vertebrae: Mild dextroscoliosis and normal lumbar lordosis. No acute fracture. Spinal cord: The conus is normal size, shape and signal characteristics, terminating at L1-L2. No abnormal enhancement. Soft tissues: Unremarkable. DISCS/SPINAL CANAL/NEURAL FORAMINA: L1-L2: Unremarkable. No significant disc disease. No stenosis. L2-L3: Unremarkable. No significant disc disease. No stenosis. L3-L4: Unremarkable. No significant disc disease. No stenosis. L4-L5: Unremarkable. No significant disc disease. No stenosis. L5-S1: Unremarkable. No significant disc disease. No stenosis. IMPRESSION: No evidence of acute lumbar spine pathology. Electronically signed by: Janae Hernandez MD 12/09/23 01:00 AM Thoracic Spine MRI 12/08/23 09:36 Exam(s): MRI T SPINE W/WO Contrast IV Amt: 6.5ml gadavist EXAM: MR Thoracic Spine Without and With Intravenous Contrast CLINICAL HISTORY: Reason for exam: R sided back pain in setting of MSSA bacteremia. TECHNIQUE: Magnetic resonance images of the thoracic spine without and with intravenous contrast in multiple planes. CONTRAST: Patient received 6.5ml gadavist of IV contrast COMPARISON: MRI T-spine 11-08-2014. FINDINGS: Vertebrae: Moderate levoscoliosis and increased thoracic kyphosis. No acute fracture. Discs/spinal canal/neural foramina: No acute findings. No significant disc disease. No spinal canal stenosis. Spinal cord: Unremarkable. Normal signal. No abnormal enhancement. Soft tissues: Right pleural effusion. IMPRESSION: No evidence of acute thoracic spine pathology. Electronically signed by: Janae Hernandez MD 12/09/23 00:47 AM Medications Administered Home Medications Medication Instructions Recorded Confirmed Last Taken dicyclomine 10 mg capsule 20 mg PO Q6H PRN Abdominal Pain 03/07/18 12/03/23 03/05/23 08:00 pantoprazole 40 mg tablet,delayed 40 mg PO QAM 09/08/19 12/03/23 12/02/23 release (Protonix) famotidine 40 mg tablet 20 mg PO BID 11/28/19 12/03/23 12/02/23 hydrocortisone 10 mg tablet See Rx Instructions .Route .COMPLEX 02/07/20 12/03/23 12/02/23 fexofenadine 180 mg tablet 180 mg PO HS 10/09/20 12/03/23 12/02/23 fludrocortisone 0.1 mg tablet 0.1 mg PO BID 12/12/20 12/03/23 12/02/23 acetaminophen 500 mg tablet 1,000 mg PO Q6H PRN Pain 06/13/21 12/03/23 03/04/23 23:30 (Tylenol Extra Strength) multivitamin with minerals-folic 2 tab PO HS 06/13/21 12/03/23 12/02/23 acid 200 mcg chewable tablet (Multivitamin Gummies) turmeric 400 mg capsule 400 mg PO HS 06/13/21 12/03/23 12/02/23 empty container (Enema Misc Bottle) #72 ea 01/16/22 12/03/23 Unknown cholecalciferol (vitamin D3) 25 50 mcg PO QAM 04/07/22 12/03/23 12/02/23 mcg (1,000 unit) capsule (Vitamin D3) duloxetine 60 mg capsule,delayed 60 mg PO QAM 04/07/22 12/03/23 12/02/23 release methocarbamol 750 mg tablet 750 mg PO TID 11/12/03/23 12/02/23 coenzyme Q10 100 mg capsule 100 mg PO PM 07/22/22 12/03/23 12/02/23 (CoQ-10) pyridoxine (vitamin B6) 50 mg 50 mg PO QAM 07/22/22 12/03/23 12/02/23 tablet ondansetron 8 mg disintegrating 8 mg PO TID PRN Nausea 10/06/22 12/03/23 03/05/23 02:00 tablet fentanyl 75 mcg/hr transdermal 1 patch transdermal Q72H #10 ea 10/23/22 12/03/23 12/02/23 patch lorazepam 2 mg/mL injection 0.5 mg (0.25 mL) buccal QID PRN 12/04/22 12/03/23 03/05/23 08:00 solution (Ativan) Nausea #100 mL bethanechol chloride 25 mg tablet 12.5 mg (1/2 x 25 mg) PO BID PRN 12/05/22 12/03/23 03/04/23 19:00 urinary retention #20 tabs levothyroxine 50 mcg tablet 50 mcg PO QAM 03/04/23 12/03/23 12/02/23 (Synthroid) gabapentin 250 mg/5 mL oral 900 mg PO TID 03/10/23 12/03/23 12/02/23 solution oxycodone 20 mg/mL oral concentrate 20 mg PO QID PRN Pain 08/05/23 12/03/23 Unknown calcium carbonate 250 mg PO QPM 11/10/23 12/03/23 12/02/23 norethindrone (contraceptive) 0.35 0.35 mg PO QAM 11/10/23 12/03/23 12/02/23 mg tablet Active Medications Generic Name Dose Route Start Last Admin Trade Name Freq PRN Reason Stop Dose Admin Acetaminophen 1,000 mg 12/03/23 02:30 12/05/23 08:07 Acetaminophen 500 Mg Tab PO 01/02/24 02:29 1,000 mg Q6H PRN Administration Pain Bethanechol Chloride 12.5 mg 12/03/23 02:30 12/09/23 08:12 Bethanechol Chl 25 Mg Tab PO 01/02/24 02:29 12.5 mg BID PRN Administration urinary retention Calcium Carbonate 0.5 tab 12/03/23 21:00 12/08/23 22:31 Calcium Carbonate 1250mg Tab PO 01/02/24 20:59 0.5 tab QPM EMERALD Administration Dicyclomine HCl 20 mg 12/03/23 02:30 12/08/23 22:32 Dicyclomine Hcl 10 Mg Cap PO 01/02/24 02:29 20 mg Q6H PRN Administration Abdominal Pain Duloxetine HCl 60 mg 12/03/23 09:00 12/09/23 08:06 Duloxetine Hcl 60 Mg Cap PO 01/02/24 08:59 60 mg QAM EMERALD Administration Famotidine 20 mg 12/03/23 09:00 12/09/23 08:06 Famotidine 20 Mg Tab PO 01/02/24 08:59 20 mg BID EMERALD Administration Fentanyl 1 patch 12/04/23 09:00 12/07/23 09:34 Fentanyl 75 Mcg/Hr Tdsy TD 12/18/23 08:59 1 patch Q72H EMERALD Administration Fexofenadine HCl 180 mg 12/03/23 21:00 12/08/23 22:34 Fexofenadine Hcl 180 Mg Tab PO 01/02/24 20:59 180 mg HS EMERALD Administration Fludrocortisone Acetate 0.1 mg 12/03/23 09:00 12/09/23 08:06 Fludrocortisone Acetate 0.1 Mg Tab PO 01/02/24 08:59 0.1 mg BID EMERALD Administration Gabapentin 900 mg 12/03/23 09:00 12/09/23 08:13 Gabapentin 250 Mg/5 Ml 470 Ml Btl PO 01/02/24 08:59 900 mg TID EMERALD Administration Hydrocortisone 10 mg 12/03/23 14:00 12/08/23 14:35 Hydrocortisone 10 Mg Tab PO 01/02/24 13:59 10 mg DAILY@1400 EMERALD Administration Hydrocortisone 15 mg 12/03/23 09:00 12/09/23 08:05 Hydrocortisone 10 Mg Tab PO 01/02/24 08:59 15 mg QAM EMERALD Administration Hydromorphone HCl 1 mg 12/05/23 18:10 12/09/23 10:53 Hydromorphone Inj 1 Mg/Ml Syringe IV 12/17/23 01:04 1 mg Q2H PRN Administration Breakthrough Pain Hyoscyamine 0.125 mg 12/03/23 09:54 12/06/23 08:11 Hyoscyamine Sulfate 0.125 Mg Tab PO 01/02/24 09:53 0.125 mg Q6H PRN Administration GI Upset Lorazepam 0.5 mg/ Syringe 0.5 mls @ 2 mls/min 12/03/23 01:15 12/09/23 10:55 IV 01/02/24 01:14 2 mls/min QID PRN Administration Nausea Protocol Cefazolin Sodium 2,000 mg in 15 mls @ 3.75 mls/min 12/03/23 07:45 12/09/23 08:02 Ancef 2000mg IV 12/17/23 07:44 3.75 mls/min Q8H EMERALD Administration Lactated Ringer's 1,000 mls @ 100 mls/hr 12/04/23 12:00 12/09/23 11:45 Lr IV 01/03/24 11:59 100 mls/hr .Q10H EMERALD Administration Levothyroxine Sodium 50 mcg 12/03/23 06:30 12/09/23 06:13 Levothyroxine Sodium 50 Mcg Tablet PO 01/02/24 06:29 50 mcg DAILYBB EMERALD Administration Lidocaine 1 patch 12/04/23 12:00 12/09/23 11:46 Lidocaine 5% 1 Patch TD 01/03/24 11:59 Not Given Q24H EMERALD Methocarbamol 750 mg 12/03/23 09:00 12/09/23 08:05 Methocarbamol 750 Mg Tablet PO 01/02/24 08:59 750 mg TID EMERALD Administration Miscellaneous 1 each 12/04/23 08:59 12/07/23 08:30 Fentanyl Patch Remove & Waste N/A 01/03/24 08:58 1 each Q3D@0859 EMERALD Administration Miscellaneous 1 each 12/03/23 08:00 12/09/23 09:22 Check Fentanyl Patch Placement N/A 01/02/24 07:59 1 each QS EMERALD Administration Miscellaneous 1 each 12/03/23 19:00 12/09/23 08:06 [Norethindrone 0.35mg] Patient's Own Med PO 01/02/24 18:59 1 each QAM EMERALD Administration Miscellaneous 1 each 12/05/23 00:00 12/08/23 23:32 Remove Lidoderm Patch N/A 01/04/24 00:00 Not Given DAILY@0000 [facility] Uzair Patch - Patient 1 each 12/04/23 22:39 12/04/23 23:05 's Own Med TD 01/03/24 22:38 1 patch UD PRN Administration Pain Ondansetron HCl 4 mg 12/03/23 03:35 12/09/23 06:13 Ondansetron Inj 2 Mg/Ml 2 Ml Vial IV 01/02/24 03:34 4 mg Q4H PRN Administration Nausea Oxycodone HCl 20 mg 12/03/23 01:01 12/09/23 09:19 Oxycodone Intensol 20 Mg/1 Ml Udp PO 12/17/23 01:00 20 mg QID PRN Administration Pain (1-10) Pantoprazole Sodium 40 mg 12/03/23 09:00 12/09/23 08:05 Pantoprazole 40 Mg Tab PO 01/02/24 08:59 40 mg QAM EMERALD Administration Pyridoxine HCl 50 mg 12/03/23 09:00 12/09/23 08:05 Pyridoxine Hcl 50 Mg Tab PO 01/02/24 08:59 50 mg QAM EMERALD Administration Vitamin D 50 mcg 12/03/23 09:00 12/09/23 08:06 Cholecalciferol 25 Mcg (1000 Units) Tab PO 01/02/24 08:59 50 mcg QAM EMERALD Administration
[2023-12-09] MEDS ORDERED: TPN/PPN CONSULT PHARMACY STA (11:05)
[2023-12-09] MEDS ORDERED: DEXTROSE 10% 1,000 ML IV PRN (12:05)
--- NOTE | 2023-12-09 12:19 | Pharmacy Report ---
Pharmacy Initial PN Consult Nt - Date of Service December 09, 2023 - Scope Pharmacy has been consulted on this date to manage parenteral nutrition orders and order appropriate labs. As part of the Nutrition Support Team Guidelines, pharmacy will work in conjunction with dietary when determining the patients c aloric needs. - Subjective * The patient is a 33 year old Female admitted on 12/03/23 for GRAM + BACTEREMIA. * Patient is to receive parenteral nutrition as she is on chronic PN at home. * Pertinent PMHx: * gastroparesis - Objective Vascular Access: * Patient currently has a peripheral line. * Peripheral line was confirmed by IV Team to be acceptable for PPN use on this date. Height & Weight (Last Documented) Height 5 ft 6 in Weight 64.7 kg Diet Order(s) 12/08/23 Lunch Diet 12/10/23 00:01 NPO Intake & Ouput (24hrs) 12/08/23 12/09/23 12/10/23 06:59 06:59 06:59 Intake Total 8.333 / 2038.333 2810 / 2810 950 / 950 Balance 2038.333 / 2038.333 2810 / 2810 950 / 950 Selected Laboratory Results 12/09/23 05:56 Sodium 142 Potassium 3.3 L Chloride 104 Carbon Dioxide 32 Anion Gap 6 BUN 2 L Creatinine 0.52 L Est GFR ( Amer) 147.6 Est GFR (Non-Af Amer) 127.3 BUN/Creatinine Ratio 3.8 L Glucose 86 Calcium 8[address] - Follow Up Nutrition Assessment Start: 12/03/23 11:57 Freq: Status: Active Protocol: Document 12/09/23 10:25 WN (Rec: 12/09/23 10:38 WN [id number]) RD - Initial Nutrition Assessment Start: 12/03/23 10:59 Freq: Status: Active Protocol: Document 12/03/23 10:59 WN (Rec: 12/03/23 11:57 WN [id number]) - Assessment & Plan Assessment: * Appreciate dietitians recommendations for macronutrients. * Starting PPN with hopes of PICC line placement for tomorrow (12/09). * Multivitamin allergy so none in bag. * Risk of refeeding so infusing over 24 hours - can consider shorter duration once PICC line placed. Plan: * For Day #1 of PPN administration, the following will be ordered: * Macronutrients: * Amino Acids: 85 grams/day * Dextrose: 100 grams/day * Lipids: 50 grams/day * Micronutrients: * Sodium chloride: 80 mEq/day * Potassium phosphate: 9 mMol/day * Potassium chloride: 60 mEq/day * Magnesium sulfate: 16.24 mEq/day * Calcium gluconate: 9.3 mEq/day * Trace elements: 1 mL/day * Thiamine: 100 mg/day * Folic Acid: 1 mg/day * Total volume of 2091.2 mL will be infused over 24 hours and will provide 1180 kcal/day * Patient is on PPN which has a maximum mOsm/L of 900. Final osmolarity of current solution is 794 mOsm/L. * Labs will be ordered per PN protocol. * Pharmacy will follow and adjust PN orders on a daily basis. Thank you!
[2023-12-09] MEDS: OPTIRAY 320 100ml IV ONE (12:31)
--- NOTE | 2023-12-09 13:16 | CT Scan Report ---
CT chest diagnostic w con CLINICAL HISTORY: new right chest wall pain TECHNIQUE: Multidetector row helical CT of the chest was performed with intravenous contrast. Coronal and sagittal reformations were obtained. Automated dose lowering techniques and/or adjustment accord ing to patient size were utilized for this exam. CT DOSE: 343.13 mGy.cm Comparison: Comparison is made to CT chest 12/05/2023 FINDINGS: Lungs and pleura: Atelectasis is seen in the bilateral lower lungs and there is a small right pleural effusion. Stable pulmonary nodules include the followin mm nodule in the right lower lobe superior segment (series 4 image 92) 12 mm nodular density in the right lower lobe (image 117) 2 mm nodule right lower lobe (image 141) 5 mm nodule left lower lobe (image 164) 2 mm nodule in the left lower lobe (image 165) 12 mm nodule in the right lower lobe (image 179) Heart and pericardium: Heart size is normal. No pericardial effusion. Vessels: Unremarkable. Mediastinum and harris: Unremarkable. Chest wall and lower neck: There is a 19 mm gas and fluid collection in the right chest wall, similar in size to prior exam. Abdomen: Partial visualization of a tube extending to the duodenum. Bones: Unremarkable. IMPRESSION: 1. Redemonstration of nodular densities in the lung, unchanged from prior exam. Trace right pleural effusion is unchanged. 2. Redemonstration of right chest wall gas and fluid collection. Findings remain concerning for righ t chest wall port site abscess. No new foci of disease are seen. ACT 112: Negative or not required by law. Electronically signed by: Toyn Barnes M.D. 12/09/2023 1:14 PM
--- NOTE | 2023-12-09 13:29 | Hospitalist Progress Note ---
"Date of Service December 09, 2023 Assessment & Plan (1) Gram-positive bacteremia: (2) Methicillin susceptible Staphylococcus aureus infection: (3) Central line infection: (4) Iron deficiency anemia: (5) Witnessed seizure-like activity: (6) Abdominal pain, chronic, generalized: (7) Sinus tachycardia: (8) Secondary hyperparathyroidism: (9) Gastroparesis: (10) Urinary retention: (11) Hemorrhagic cystitis: (12) Endometriosis: Plan Pt is a 33 yo female with a past medical history most relevant for chronic port placement for TPN, endometriosis, chronic abdominal pain s/p PEG tube and ostomy placement, PNES, chronic migraines, iron deficiency anemia, and hx of superior m esenteric syndrome, hx adrenal insufficiency who presents to the hospital for abdominal pain and port associated infection with MSSA bacteremia. MSSA Bacteremia secondary to chronic port placement - Moderate erythema w/o expressible purulence at port site on admission with culture + for MSSA - Infectious Disease consulted, apprec recommendations; * Blood cultures 12/01 indicative of gram positive bacteremia MSSA * continue cefazolin q8h * Repeat cultures 12/04 negative still negative at >72 hours * Repeat blood cultures drawn 12/08 per ID recommendation, pending - Port removed by gen surg 12/02, plan will be PICC line once culture neg 48 hours vs new port placement - Chest CT 12/04 R.L opacities compatible with pneumonia/septic emboli, trace R pleural effusion, right chest wall gas and fluid collection possibly abscess - Given new onset right chest wall pain, chest CT repeated 12/08 - redemonstration of 19mm gas/fluid collection in right chest wall, concerning for port site abscess - No IR available this week - will contact general surgery re: possible aspiration/drainage and culture - TTE neg but with bacteremia and now septic emboli in lungs, MARLY ordered to more confidently r/o endocarditis - MARLY to be done 12/09 AM, anesthesiology consult placed, NPO @ midnight - MRI T-spine/L-spine 12/07 negative Malnutrition: - PICC placement deferred 12/09 due to right chest wall pain pending repeat CT - Offered PPN, though patient opted to defer due to concern about infiltration per peripheral IV - Consider PICC placement and TPN tomorrow Chronic Pain Syndrome | Pseudoseizures - Witnessed pseudoseizure in ED, noted to be a/w chronic pain, resolved with auditory support - Continue home medications Lorazepam 1 mg QID PRN Oxycodone 7.5 mg QID PRN Fentanyl patch 75 mcg Q 72H Gabapentin 900 mg PO TID Duloxetine 60 mg PO QAM - Additional Dilaudid 1 mg Q4h PRN for breakthrough pain - Continue antinausea treatment with Zofran and Ativan PRN Chronic Conditions - Gastroparesis: continue home medications, PEG and ostomy care inpatient, continue PPI - Iron Deficiency Anemia: continue supplementation - Secondary Hyperparathyroidism: continue home medications - Hemorrhagic cystitis: continue bethanechol PRN FEN/GI: LR 100mL/h due to poor PO intake VTE ppx: deferred, ambulatory Admission and Anticipated Discharge Date Admission Date: December 03, 2023 Supervising Physician Co-Signing Physician Notes Attending Physician Supervision Note: I independently interviewed and examined the patient and verified the solorzano history and physical, reviewed labs and image studies and agree with findings and care plan noted above. Staph bacteremia - recurrent positive blood cultures as well as septic pulmonary emboli. Source likely port - removed by surgery. TTE negative. -MARLY scheduled for 12/09. -12/04 cultures neg at >72hrs. continue cefazolin - will do continuous infusions on discharge. -MRI spine negative -Chest CT with septic emboli and port site with persistent abscess - consult surgery. Acute right upper abdomen/lower chest pain - main presenting complain on admission - ? sec to septic embolic. -continue home regimen of pain meds with some titration - fentanyl 50 -->75; oxycodone total 30mgs/24hr -->45mgs/24hrs. -IV dilaudid has been added for acute pain - 1mgs q3hrs Chronic abdominal pain reports significant improvement after her most recent surgery with massive lysis of adhesions. ongoing pain control Short gut/IV nutrition dependentperipheral lines for now until decision for Port/PICC made. Subjective Today, pt reports new onset right shoulder/chest wall pain that started last night. Pain exacerbated with movement, associated restriction in ROM. Notes subjective feeling of crepitus. Otherwise, sx largely unchanged, no acute overnight events. Case discussed with ID, Dr. Conner, by phone - recommending MARLY as vegetations or other evidence of metastatic processes would necessitate additional 2 weeks of abx. Additionally, given new onset right chest wall pain near site of previously noted ?abscess, ID recommending repeat CT chest for re- evaluation. No IR available this week. Denies fevers/chills. Review of Systems Review of Systems: As per HPI. Physical Exam Physical Exam: General:Alert and oriented, no acute distress, HEENT: Normocephalic, moist oral mucosa, Cardio: Regular rate and rhythm, no murmur. Right anterior chest wall broadly tender to palpation, most localized to area under right clavicle. No crepitus appreciated. Resp:Lungs clear to auscultation b/l, no wheezes or rhonchi, mildly restricted lung excursion GI: Soft, bowel sounds active Skin: Warm, dry, no rashes noted Results & Data Results & Data Vital Signs (Past 12 Hours) Vital Signs Temp Pulse Pulse Resp BP Pulse Ox Pulse Ox 12/09/23 11:36 36.9 C 92 H 17 128/88 98 12/09/23 08:15 12/09/23 07:34 95 H 12/09/23 07:16 36.8 C 95 H 17 111/76 96 12/09/23 04:06 36.8 C 86 14 113/82 98 12/09/23 02:00 99 O2 Del Method O2 Del Method O2 Flow Rate O2 Flow Rate 12/09/23 11:36 Nasal Cannula 2 12/09/23 08:15 Nasal Cannula 2 12/09/23 07:34 12/09/23 07:16 Nasal Cannula 2 12/09/23 04:06 Nasal Cannula 2 12/09/23 02:00 Nasal Cannula 2 Resident Activity Tracking Resident Involvement: Resident Care Provided Care Provided: Adult Hospital Medicine"
[2023-12-09] MEDS: fentaNYL 50 MCG/HR TDSY TD SCH (14:08)
[2023-12-09] MEDS ORDERED: CHECK fentaNYL PATCH PLACEMENT SCH (16:00)
[2023-12-09] MEDS: HYDROmorphone INJ 1 MG/ML SYRINGE IV PRN (16:33)
[2023-12-09] MEDS: LACTATED RINGER'S 1,000 ML IV SCH (17:41)
[2023-12-09] MEDS: LORazepam 1 MG TAB PO PRN (17:45)
[2023-12-09] MEDS: PERIPHERAL TPN IV SCH (17:49)
[2023-12-09] MEDS: CLINOLIPID 20% IV FAT EMULSION 250 ML IV SCH (17:49)
[2023-12-09] MEDS: [UNRECOGNIZED DRUG - OTHER] IV SCH (17:49)
[2023-12-09] MEDS ORDERED: LORazepam 1 MG in SYRINGE 0.5 ML IV PRN (17:59)
[2023-12-09] MEDS: oxyCODONE HCL SOLN 5 MG/5 ML UDC PO PRN (18:52)
[2023-12-09] MEDS ORDERED: STOP CLINOLIPID SCH (22:00)
[2023-12-10] MEDS: LORazepam 0.5 MG in SYRINGE 0.25 ML IV PRN (00:33)
[2023-12-10 06:30] LABS: Calcium 8.6 mg/dl (8.6-10.3); Magnesium 1.8 mg/dl (1.7-2.4); Potassium 3.4 mmol/L (3.5-5.1)
[2023-12-10 06:33] LABS: Hematocrit (blood only) 32.6 % (37.0-47.0); Hemoglobin 10.7 g/dl (12.0-16.0); Mean Corpuscular Hemoglobin 30.8 pg (25.0-34.0); Mean Corpuscular Hgb Conc 32.8 g/dL (32.0-36.0); Mean Corpuscular Volume 93.9 fL (80.0-100.0); Mean Platelet Volume 10.7 fL (9.4-12.4); Platelet Count 332 K/uL (130-400); RDW Standard Deviation 41.1 fL (36.4-46.3); Red Blood Count 3.47 M/uL (4.20-5.40)
[2023-12-10 06:36] LABS: Creatinine Clr Calc Pharmacy 152.6 ml/min; Est GFR (African American) 149.5 ml/min; Phosphorus 3.7 mg/dl (2.5-4.9)
--- NOTE | 2023-12-10 07:02 | Anesthesiology Consultation ---
Date of Service December 10, 2023 Assessment & Plan (1) Encounter for pre-operative examination: Chart Review Chart Review: Acceptable Risk for Surgery and Patient NOT seen in Pre Admission Testing Consults Requested none History Surgery Operation Date: 12/03/23 08:10 Proposed Procedures p Port Removal - Jr Collins DO, FACS Operation Date: 12/10/23 07:15 Proposed Procedures p Transesophageal Echo w/Anesthesia - Stanton Gilbert MD Height/Weight Height: 5 ft 6 in Weight: 65.6 kg Allergies Allergy/AdvReac Type Severity Reaction Status Date / Time diphenhydramine Allergy Severe Anaphylaxis Verified 12/03/23 01:23 promethazine Allergy Severe hives, Verified 12/03/23 01:23 throat swelling adhesive Allergy Intermediate Redness of Verified 12/03/23 01:23 Skin amoxicillin Allergy Intermediate RASH Verified 12/03/23 01:23 azithromycin [From Zithromax] Allergy Intermediate RASH/VOMITI Verified 12/03/23 01:23 NG calcium Allergy Intermediate SEE COMMENT Verified 12/03/23 01:23 [From VIACTIV Multi-Vitamin] cefazolin Allergy Intermediate rash Verified 12/03/23 01:23 Cephalosporins Allergy Intermediate HIVES Verified 12/03/23 01:23 clavulanic acid Allergy Intermediate HIVES Verified 12/03/23 01:23 ferric carboxymaltose Allergy Intermediate Rash Verified 12/03/23 01:23 [From Injectafer] folic acid Allergy Intermediate SEE COMMENT Verified 12/03/23 01:23 [From VIACTIV Multi-Vitamin] iron [From Venofer] Allergy Intermediate Muscle Pain Verified 12/03/23 01:23 multivitamin with minerals Allergy Intermediate SEE COMMENT Verified 12/03/23 01:23 [From VIACTIV Multi-Vitamin] Penicillins Allergy Intermediate HIVES Verified 12/03/23 01:23 prochlorperazine Allergy Intermediate HIVES Verified 12/03/23 01:23 sulfamethoxazole Allergy Intermediate RASH Verified 12/03/23 01:23 sumatriptan Allergy Intermediate RASH Verified 12/03/23 01:23 trimethoprim Allergy Intermediate RASH Verified 12/03/23 01:23 metoclopramide AdvReac Severe anxiety/ Verified 12/03/23 01:23 jittery morphine AdvReac Severe Severe Verified 12/03/23 01:23 abdominal Pain, sphincter of oddi spasms erythromycin base AdvReac Intermediate GI SYMPTOMS Verified 12/03/23 01:23 citalopram [From Celexa] AdvReac Unknown CAN'T Verified 12/03/23 01:23 REMEMBER Medications Home Medications Medication Instructions Recorded Confirmed Last Taken dicyclomine 10 mg capsule 20 mg PO Q6H PRN Abdominal Pain 03/07/18 12/03/23 03/05/23 08:00 pantoprazole 40 mg tablet,delayed 40 mg PO QAM 09/08/19 12/03/23 12/02/23 release (Protonix) famotidine 40 mg tablet 20 mg PO BID 11/28/19 12/03/23 12/02/23 hydrocortisone 10 mg tablet See Rx Instructions .Route .COMPLEX 02/07/20 12/03/23 12/02/23 fexofenadine 180 mg tablet 180 mg PO HS 10/09/20 12/03/23 12/02/23 fludrocortisone 0.1 mg tablet 0.1 mg PO BID 12/12/20 12/03/23 12/02/23 acetaminophen 500 mg tablet 1,000 mg PO Q6H PRN Pain 06/13/21 12/03/23 03/04/23 23:30 (Tylenol Extra Strength) multivitamin with minerals-folic 2 tab PO HS 06/13/21 12/03/23 12/02/23 acid 200 mcg chewable tablet (Multivitamin Gummies) turmeric 400 mg capsule 400 mg PO HS 06/13/21 12/03/23 12/02/23 empty container (Enema Misc Bottle) #72 ea 01/16/22 12/03/23 Unknown cholecalciferol (vitamin D3) 25 50 mcg PO QAM 04/07/22 12/03/23 12/02/23 mcg (1,000 unit) capsule (Vitamin D3) duloxetine 60 mg capsule,delayed 60 mg PO QAM 04/07/22 12/03/23 12/02/23 release methocarbamol 750 mg tablet 750 mg PO TID 04/07/22 12/03/23 12/02/23 coenzyme Q10 100 mg capsule 100 mg PO PM 07/22/22 12/03/23 12/02/23 (CoQ-10) pyridoxine (vitamin B6) 50 mg 50 mg PO QAM 07/22/22 12/03/23 12/02/23 tablet ondansetron 8 mg disintegrating 8 mg PO TID PRN Nausea 10/06/22 12/03/23 03/05/23 02:00 tablet fentanyl 75 mcg/hr transdermal 1 patch transdermal Q72H #10 ea 10/23/22 12/03/23 12/02/23 patch lorazepam 2 mg/mL injection 0.5 mg (0.25 mL) buccal QID PRN 12/04/22 12/03/23 03/05/23 08:00 solution (Ativan) Nausea #100 mL bethanechol chloride 25 mg tablet 12.5 mg (1/2 x 25 mg) PO BID PRN 12/05/22 12/03/23 03/04/23 19:00 urinary retention #20 tabs levothyroxine 50 mcg tablet 50 mcg PO QAM 03/04/23 12/03/23 12/02/23 (Synthroid) gabapentin 250 mg/5 mL oral 900 mg PO TID 03/10/23 12/03/23 12/02/23 solution oxycodone 20 mg/mL oral concentrate 20 mg PO QID PRN Pain 08/05/23 12/03/23 Unknown calcium carbonate 250 mg PO QPM 11/10/23 12/03/23 12/02/23 norethindrone (contraceptive) 0.35 0.35 mg PO QAM 11/10/23 12/03/23 12/02/23 mg tablet Active Medications Generic Name Dose Route Start Last Admin Trade Name Freq PRN Reason Stop Dose Admin Acetaminophen 1,000 mg 12/03/23 02:30 12/05/23 08:07 Acetaminophen 500 Mg Tab PO 01/02/24 02:29 1,000 mg Q6H PRN Administration Pain Bethanechol Chloride 12.5 mg 12/03/23 02:30 12/09/23 20:45 Bethanechol Chl 25 Mg Tab PO 01/02/24 02:29 12.5 mg BID PRN Administration urinary retention Calcium Carbonate 0.5 tab 12/03/23 21:00 12/09/23 20:41 Calcium Carbonate 1250mg Tab PO 01/02/24 20:59 0.5 tab QPM EMERALD Administration Dicyclomine HCl 20 mg 12/03/23 02:30 12/09/23 20:48 Dicyclomine Hcl 10 Mg Cap PO 01/02/24 02:29 20 mg Q6H PRN Administration Abdominal Pain Duloxetine HCl 60 mg 12/03/23 09:00 12/09/23 08:06 Duloxetine Hcl 60 Mg Cap PO 01/02/24 08:59 60 mg QAM EMERALD Administration Famotidine 20 mg 12/03/23 09:00 12/09/23 20:42 Famotidine 20 Mg Tab PO 01/02/24 08:59 20 mg BID EMERALD Administration Fentanyl 1 patch 12/04/23 09:00 12/07/23 09:34 Fentanyl 75 Mcg/Hr Tdsy TD 12/18/23 08:59 1 patch Q72H EMERALD Administration Fexofenadine HCl 180 mg 12/03/23 21:00 12/09/23 20:43 Fexofenadine Hcl 180 Mg Tab PO 01/02/24 20:59 180 mg HS EMERALD Administration Fludrocortisone Acetate 0.1 mg 12/03/23 09:00 12/09/23 20:42 Fludrocortisone Acetate 0.1 Mg Tab PO 01/02/24 08:59 0.1 mg BID EMERALD Administration Gabapentin 900 mg 12/03/23 09:00 12/09/23 20:41 Gabapentin 250 Mg/5 Ml 470 Ml Btl PO 01/02/24 08:59 900 mg TID EMERALD Administration Hydrocortisone 10 mg 12/03/23 14:00 12/09/23 14:51 Hydrocortisone 10 Mg Tab PO 01/02/24 13:59 10 mg DAILY@1400 EMERALD Administration Hydrocortisone 15 mg 12/03/23 09:00 12/09/23 08:05 Hydrocortisone 10 Mg Tab PO 01/02/24 08:59 15 mg QAM EMERALD Administration Hydromorphone HCl 1 mg 12/09/23 15:00 12/10/23 06:27 Hydromorphone Inj 1 Mg/Ml Syringe IV 12/23/23 14:59 1 mg Q3H PRN Administration Pain Hyoscyamine 0.125 mg 12/03/23 09:54 12/06/23 08:11 Hyoscyamine Sulfate 0.125 Mg Tab PO 01/02/24 09:53 0.125 mg Q6H PRN Administration GI Upset Cefazolin Sodium 2,000 mg in 15 mls @ 3.75 mls/min 12/03/23 07:45 12/10/23 00:33 Ancef 2000mg IV 12/17/23 07:44 3.75 mls/min Q8H EMERALD Administration Lactated Ringer's 1,000 mls @ 100 mls/hr 12/09/23 17:00 12/09/23 23:09 Lr IV 01/08/24 16:59 100 mls/hr .Q10H EMERALD Administration Lorazepam 0.5 mg/ Syringe 0.5 mls @ 2 mls/min 12/09/23 19:44 12/10/23 00:33 IV 01/08/24 17:58 2 mls/min QID PRN Administration Anxiety/Agitation Levothyroxine Sodium 50 mcg 12/03/23 06:30 12/10/23 06:26 Levothyroxine Sodium 50 Mcg Tablet PO 01/02/24 06:29 50 mcg DAILYBB EMERALD Administration Lidocaine 1 patch 12/04/23 12:00 12/09/23 11:46 Lidocaine 5% 1 Patch TD 01/03/24 11:59 Not Given Q24H EMERALD Methocarbamol 750 mg 12/03/23 09:00 12/09/23 20:42 Methocarbamol 750 Mg Tablet PO 01/02/24 08:59 750 mg TID EMERALD Administration Miscellaneous 1 each 12/04/23 08:59 12/07/23 08:30 Fentanyl Patch Remove & Waste N/A 01/03/24 08:58 1 each Q3D@0859 EMERALD Administration Miscellaneous 1 each 12/03/23 08:00 12/10/23 00:34 Check Fentanyl Patch Placement N/A 01/02/24 07:59 1 each QS EMERALD Administration Miscellaneous 1 each 12/03/23 19:00 12/09/23 08:06 [Norethindrone 0.35mg] Patient's Own Med PO 01/02/24 18:59 1 each QAM EMERALD Administration Miscellaneous 1 each 12/05/23 00:00 12/10/23 00:17 Remove Lidoderm Patch N/A 01/04/24 00:00 Not Given DAILY@0000 EMERALD Uzair Patch - Patient 1 each 12/04/23 22:39 12/04/23 23:05 's Own Med TD 01/03/24 22:38 1 patch UD PRN Administration Pain Ondansetron HCl 4 mg 12/03/23 03:35 12/10/23 03:35 Ondansetron Inj 2 Mg/Ml 2 Ml Vial IV 01/02/24 03:34 4 mg Q4H PRN Administration Nausea Oxycodone HCl 7.5 mg 12/09/23 15:00 12/09/23 23:07 Oxycodone Hcl Soln 5 Mg/5 Ml Udc PO 12/17/23 01:00 7.5 mg Q4H PRN Administration Pain (1-10) Pantoprazole Sodium 40 mg 12/03/23 09:00 12/09/23 08:05 Pantoprazole 40 Mg Tab PO 01/02/24 08:59 40 mg QAM EMERALD Administration Pyridoxine HCl 50 mg 12/03/23 09:00 12/09/23 08:05 Pyridoxine Hcl 50 Mg Tab PO 01/02/24 08:59 50 mg QAM EMERALD Administration Vitamin D 50 mcg 12/03/23 09:00 12/09/23 08:06 Cholecalciferol 25 Mcg (1000 Units) Tab PO 01/02/24 08:59 50 mcg QAM EMERALD Administration NPO Date Last Intake of Fluids: 12/01/23 Date Last Intake of Solids: 12/03/23 Time Last Intake of Solids: 09:00 Past Medical History Medical History Endometrioma of ovary Urinary dysfunction Abdominal pain Pain disorder Generalized abdominal pain Hx of Clostridium difficile infection 5 years ago, tx. 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 carroll, [facility] Spinal cord stimulator status trial implanted 03/02/23, in dr. ramírez's office>advised to bring remote Chronic, continuous use of opioids Difficult intravenous access Intractable pain Abdominal pain Elevated lipase Transaminitis Colitis Chronic malnutrition Gastrostomy tube in place Intussusception hx PICC (peripherally inserted central catheter) in place TPN Pancreatitis hx Sphincter of Oddi dysfunction DECREASED GI MOTILITY Uses feeding tube gastroparesis and decreased GI motility can not tolerate feeding and uses TPN Epigastric abdominal pain Dehydration "kind of always dehydrated" Nausea Past Family History Family History Father Hyperlipidemia Other No significant family history Past Surgical History Surgical History History of removal of Port-a-Cath (12/03/23) Port Removal(Right) - Jr Collins DO, FACS History of lysis of adhesions History of liver biopsy 2023 Hx of exploratory laparotomy History of esophagogastroduodenoscopy (EGD) Ileostomy status Hx of ileostomy Hx of colonoscopy during procedure perforated small bowel 10/27/2019 at [facility], subsequent repair of duodenal area. History of bowel resection Part of duodenum removed due to necrosis; done at [facility] 2019 History of removal of Port-a-Cath 10/13/[address] Geiger, [facility], due to bacteremia/sepsis.; "inserted and removed multiple times" History of hysterectomy 09/27/19 History of appendectomy History of vascular access device 2017; implanted and removed "several" times Social History Smoking Status: Never smoker Do You Dip or Chew Tobacco: No Hx Alcohol Use: No Hx Substance Use: No substance use type: does not use Physical Exam Vital Signs Last Vital Signs Temp 98.1 F 12/10/23 03:25 Pulse 107 H 12/10/23 03:25 Resp 12 12/10/23 03:25 BP 134/89 12/10/23 03:25 Pulse Ox 97 12/10/23 03:25 O2 Del Method Nasal Cannula 12/10/23 03:25 O2 Flow Rate 2 12/10/23 03:25 Testing Laboratory Results 12/10/23 05:42 12/10/23 05:42 12/03/23 01:01 Aerobic Blood Culture - Final Blood Staphylococcus aureus Anaerobic Blood Culture - Final Staphylococcus aureus 12/05/23 07:42 Aerobic Blood Culture - Preliminary Blood No growth in Aerobic bottle after 24 hours. Anaerobic Blood Culture - Preliminary No growth in Anaerobic bottle after 24 hours. 12/05/23 07:30 Aerobic Blood Culture - Preliminary Blood No growth in Aerobic bottle after 24 hours. Anaerobic Blood Culture - Preliminary No growth in Anaerobic bottle after 24 hours. 12/03/23 11:30 Gram Stain - Final Abdomen, Left Lower Quadrant Wound Culture - Final Staphylococcus aureus 12/03/23 Unknown Catheter Tip Culture - Final Catheter Tip, A-port Staphylococcus aureus 12/03/23 01:26 Aerobic Blood Culture - Preliminary Blood No growth in Aerobic bottle after 48 hours. Anaerobic Blood Culture - Final 12/03/23 12:15 POC Ur Test NEG
--- NOTE | 2023-12-10 07:06 | Hospitalist Progress Note ---
"Date of Service December 10, 2023 Assessment & Plan (1) Gram-positive bacteremia: (2) Methicillin susceptible Staphylococcus aureus infection: (3) Central line infection: (4) Iron deficiency anemia: (5) Witnessed seizure-like activity: (6) Abdominal pain, chronic, generalized: (7) Sinus tachycardia: (8) Secondary hyperparathyroidism: (9) Gastroparesis: (10) Urinary retention: (11) Hemorrhagic cystitis: (12) Endometriosis: Plan Pt is a 33 yo female with a past medical history most relevant for chronic port placement for TPN, endometriosis, chronic abdominal pain s/p PEG tube and ostomy placement, PNES, chronic migraines, iron deficiency anemia, and hx of superior m esenteric syndrome, hx adrenal insufficiency who presents to the hospital for abdominal pain and port associated infection with MSSA bacteremia. MSSA Bacteremia secondary to chronic port placement - Moderate erythema w/o expressible purulence at port site on admission with culture + for MSSA - Infectious Disease consulted, apprec recommendations; * Blood cultures 12/01 indicative of gram positive bacteremia MSSA * Repeat cultures 12/04 negative still negative at >72 hours * Repeat blood cultures drawn 12/08 per ID recommendation, negative at 24 hours * continue cefazolin q8h - anticipate minimum 4 weeks IV abx - Port removed by gen surg 12/02 - Chest CT 12/04 R.L opacities compatible with pneumonia/septic emboli, trace R pleural effusion, right chest wall gas and fluid collection possibly abscess - Given new onset right chest wall pain, chest CT repeated 12/08 - redemonstration of 19mm gas/fluid collection in right chest wall, concerning for port site abscess - No IR available this week - [facility] gen surgery evaluated patient, felt finding was more consistent with seroma, recommended application of a pressure bandage. - TTE 12/02 neg but with bacteremia and now septic emboli in lungs, MARLY ordered to more confidently r/o endocarditis - MARLY 12/09 also negative - MRI T-spine/L-spine 12/07 negative TPN Dependence, Short Gut: - IV team consulted for PICC placement 12/09 - despite adequate hydration with IV fluids, venous access not amenable to PICC placement in either arm - Gen surgery recommends against port placement in an alternate location at this time due to proximity to active bacteremia - Vascular surgery consulted, pt to have Norris catheter placed tomorrow AM - NPO at midnight - Restart TPN after catheter placement Chronic Pain Syndrome | Pseudoseizures - Witnessed pseudoseizure in ED, noted to be a/w chronic pain, resolved with auditory support - Continue home medications Lorazepam 0.5 mg QID PRN Oxycodone 7.5 mg Q4h PRN Fentanyl patch 75 mcg Q 72H Gabapentin 900 mg PO TID Duloxetine 60 mg PO QAM - Additional Dilaudid 1 mg Q4h PRN for breakthrough pain - Continue antinausea treatment with Zofran and Ativan PRN Chronic Conditions - Gastroparesis: continue home medications, PEG and ostomy care inpatient, continue PPI - Iron Deficiency Anemia: continue supplementation - Secondary Hyperparathyroidism: continue home medications - Hemorrhagic cystitis: continue bethanechol PRN FEN/GI: LR 100mL/h, NPO at midnight VTE ppx: deferred, ambulatory Admission and Anticipated Discharge Date Admission Date: December 03, 2023 Supervising Physician Co-Signing Physician Notes Attending Physician Supervision Note: I independently interviewed and examined the patient and verified the solorzano histor y and physical, reviewed labs and image studies and agree with findings and care plan noted above. Staph bacteremia - recurrent positive blood cultures as well as septic pulmonary emboli. Source likely port - removed by surgery. TTE and MARLY negative. MRI spine negative. -Chest CT with septic emboli and port site with persistent abscess - consulted surgery - likely postop seroma - no concern of infection. -12/04 cultures neg at >72hrs. continue cefazolin. -consult vascular surgery for Norris catheter placement - IV team not able to place PICC/Midline. Acute right upper abdomen/lower chest pain - main presenting complain on admission - ? sec to septic embolic. -continue home regimen of pain meds with some titration - fentanyl 50 -->75; oxycodone total 30mgs/24hr -->45mgs/24hrs. -IV dilaudid added on admission for acute pain - will continue to wean to prep for discharge - now 1mgs q4hrs Chronic abdominal pain reports significant improvement after her most recent surgery with massive lysis of adhesions. ongoing pain control Short gut/IV nutrition dependentperipheral lines for now. Norris cath placement in am. Subjective Pt seen at bedside following MARLY. No acute overnight events, patient notes that pain was a bit more noticeable after readjustment of pain regimen yesterday. Ongoing right clavicle/chest wall pain. Denies fevers/chills, SOB. Review of Systems Review of Systems: As per HPI. Physical Exam Physical Exam: General:Alert and oriented, no acute distress, HEENT: Normocephalic, moist oral mucosa, Cardio: Regular rate and rhythm, no murmur. Right anterior chest wall broadly tender to palpation, most localized to area under right clavicle. No crepitus appreciated. Resp:Lungs clear to auscultation b/l, no wheezes or rhonchi, mildly restricted lung excursion GI: Soft, bowel sounds active Skin: Warm, dry, no rashes noted Results & Data Results & Data Vital Signs (Past 12 Hours) Vital Signs Temp Pulse Pulse Resp BP Pulse Ox Pulse Ox 12/10/23 03:25 36.7 C 107 H 12 134/89 97 12/10/23 02:00 98 12/09/23 23:57 36.7 C 86 16 125/87 96 12/09/23 22:48 100 H 12/09/23 20:06 36.7 C 704 H 18 124/82 95 12/09/23 20:00 O2 Del Method O2 Del Method O2 Flow Rate O2 Flow Rate 12/10/23 03:25 Nasal Cannula 2 12/10/23 02:00 Nasal Cannula 2 12/09/23 23:57 Room Air 12/09/23 22:48 12/09/23 20:06 Room Air 12/09/23 20:00 Nasal Cannula 2 Resident Activity Tracking Resident Involvement: Resident Care Provided Care Provided: Adult Hospital Medicine"
--- NOTE | 2023-12-10 08:15 | Anesthesiology Progress Note ---
Date of Service December 10, 2023 Anesthesia Post Procedure Vital Signs Vital Signs: Temp Pulse Pulse Resp BP Pulse Ox Pulse Ox 12/10/23 08:11 89 14 107/71 93 12/10/23 07:53 106 H 14 114/104 H 98 12/10/23 07:26 100 H 12/10/23 03:25 98.1 F 107 H 12 134/89 97 12/10/23 02:00 98 12/09/23 23:57 98.1 F 86 16 125/87 96 12/09/23 22:48 100 H 12/09/23 20:06 98.1 F 704 H 18 124/82 95 12/09/23 20:00 12/09/23 15:12 105 H 12/09/23 15:06 98.4 F 100 H 19 129/87 96 12/09/23 11:36 98.4 F 92 H 17 128/88 98 O2 Del Method O2 Del Method O2 Flow Rate O2 Flow Rate 12/10/23 08:11 Nasal Cannula 2 12/10/23 07:53 Room Air 12/10/23 07:26 12/10/23 03:25 Nasal Cannula 2 12/10/23 02:00 Nasal Cannula 2 12/09/23 23:57 Room Air 12/09/23 22:48 12/09/23 20:06 Room Air 12/09/23 20:00 Nasal Cannula 2 12/09/23 15:12 12/09/23 15:06 Nasal Cannula 2 12/09/23 11:36 Nasal Cannula 2 Pain Intensity Right Abdomen: Pain Intensity: 6 Transfer of Care Handoff Completed per policy Notes Mental Status: alert / awake / arousable and participated in evaluation Patient Amnestic to Procedure: Yes Nausea / Vomiting: adequately controlled Pain: adequately controlled Airway Patency, RR, SpO2: stable & adequate BP & HR: stable & adequate Hydration State: stable & adequate Anesthetic Complications: no major complications apparent and Pt Satisfied with anesthetic care
[2023-12-10] MEDS: PROPOFOL IV EMULSION 10 MG/ML 20 ML VIAL IV ONE (09:02)
[2023-12-10] MEDS: LIDOCAINE 2% 2 ML VIAL/AMP(20MG/ML) INFIL ONE (09:02)
[2023-12-10] MEDS: BENZOCAINE/TETRACAIN/BUTAM 50 APPLN/5 GM CAN EXT ONE (09:03)
[2023-12-10] MEDS: ALUMINUM/MAGNESIUM SUSP 30 ML UDC ONE (09:03)
[2023-12-10] MEDS ORDERED: TPN/PPN CONSULT PHARMACY STA (10:12)
--- NOTE | 2023-12-10 10:33 | Surgery Progress Note ---
Date of Service December 10, 2023 Assessment & Plan (1) MSSA bacteremia: (2) Central line infection: Plan Patient is POD # 7 s/p removal of right aport. There is gas and fluid collection in the area of port removal on CT scan 12/04 and 12/08 however no evidence of infection on clinical examination. Incision is clean/dry/intact with Dermabond with no induration, fluctuance, or erythema. Likely postoperative seroma. Area is small and stable with no leukocytosis. No need for drainage. Would recommend conservative measures with heat application and pressure dressing to aid in body reabsorbing postoperative fluid. Discussed with Dr. Rodgers who agrees with above. Admission and Anticipated Discharge Date Admission Date: December 03, 2023 Subjective started having pain at the right chest wall and right shoulder yesterday no drainage from the right port site incision no redness or swelling or persistent increasing pain Physical Exam Constitutional: WD/WN, vitals as above cooperative and comfortable; no acute distress Respiratory: normal respiratory effort; no respiratory distress Chest (Breasts): Additional Comments: Right chest wall inspection: Prior port site incision c/d/i with dermabond. There is no induration. fluctuance, or erythema. Mildly tender to palpation. There is no subcutaneous emphysema. There is no swelling. Psychiatric: Orientation: alert and oriented x 3 Results & Data Vital Signs (Past 12 Hours) Vital Signs Temp Pulse Pulse Resp BP BP Pulse Ox 12/10/23 08:42 36.9 C 94 H 14 126/97 96 12/10/23 08:11 89 14 107/71 93 12/10/23 07:53 106 H 14 114/104 H 98 12/10/23 07:26 100 H 12/10/23 03:25 36.7 C 107 H 12 134/89 97 12/10/23 02:00 12/09/23 23:57 36.7 C 86 16 125/87 96 12/09/23 22:48 100 H Pulse Ox O2 Del Method O2 Del Method O2 Flow Rate O2 Flow Rate 12/10/23 08:42 Nasal Cannula 2 12/10/23 08:11 Nasal Cannula 2 12/10/23 07:53 Room Air 12/10/23 07:26 12/10/23 03:25 Nasal Cannula 2 12/10/23 02:00 98 Nasal Cannula 2 12/09/23 23:57 Room Air 12/09/23 22:48 Laboratory Results 12/10/23 Range/Units 05:42 WBC 6.90 (4.8-10.8) K/ul RBC 3.47 L (4.20-5.40) M/uL Hgb 10.7 L (12.0-16.0) g/dl Hct 32.6 L (37.0-47.0) % MCV 93.9 (80.0-100.0) fL MCH 30.8 (25.0-34.0) pg MCHC 32.8 (32.0-36.0) g/dL RDW Std Deviation 41.1 (36.4-46.3) fL RDW Coeff of Tim 12.0 (11.5-14.5) % Plt Count 332 (130-400) K/uL MPV 10.7 (9.4-12.4) fL Sodium 141 (136-145) mmol/L Potassium 3.4 L (3.5-5.1) mmol/L Chloride 105 (98-107) mmol/L Carbon Dioxide 29 (21-32) mmol/L Anion Gap 7 (3-11) BUN 2 L (6-23) mg/dl Creatinine 0.50 L (0.6-1.2) mg/dl Est Cr Clr Drug Dosing 152.6 ml/min Est GFR ( Amer) 149.5 ml/min Est GFR (Non-Af Amer) 129.0 ml/min BUN/Creatinine Ratio 4.0 L (10-20) Glucose 82 (70-99(Fasting)) mg/dl Calcium 8.6 (8.6-10.3) mg/dl Phosphorus 3.7 (2.5-4.9) mg/dl Magnesium 1.8 (1.7-2.4) mg/dl Diagnostic Findings CT chest diagnostic w con CLINICAL HISTORY: new right chest wall pain TECHNIQUE: Multidetector row helical CT of the chest was performed with intravenous contrast. Coronal and sagittal reformations were obtained. Automated dose lowering techniques and/or adjustment according to patient size were utilized for this exam. CT DOSE: 343.13 mGy.cm Comparison: Comparison is made to CT chest 12/05/2023 FINDINGS: Lungs and pleura: Atelectasis is seen in the bilateral lower lungs and there is a small right pleural effusion. Stable pulmonary nodules include the followin mm nodule in the right lower lobe superior segment (series 4 image 92) 12 mm nodular density in the right lower lobe (image 117) 2 mm nodule right lower lobe (image 141) 5 mm nodule left lower lobe (image 164) 2 mm nodule in the left lower lobe (image 165) 12 mm nodule in the right lower lobe (image 179) Heart and pericardium: Heart size is normal. No pericardial effusion. Vessels: Unremarkable. Mediastinum and harris: Unremarkable. Chest wall and lower neck: There is a 19 mm gas and fluid collection in the right chest wall, similar in size to prior exam. Abdomen: Partial visualization of a tube extending to the duodenum. Bones: Unremarkable. IMPRESSION: 1. Redemonstration of nodular densities in the lung, unchanged from prior exam. Trace right pleural effusion is unchanged. 2. Redemonstration of right chest wall gas and fluid collection. Findings remain concerning for right chest wall port site abscess. No new foci of disease are seen. Personally reviewd CT images from 12/04 and 12/08. There is small fluid collection right chest wall at site of prior port removal. There is some gas present on CT scan however this is likely postoperative changes. Size stable from 12/04 to 12/08
[2023-12-10 11:36] LABS: Bilirubin,Total 0.2 mg/dl (0.2-1.0)
--- NOTE | 2023-12-10 11:57 | XCELERA ---
[id number] \\[id number]
--- NOTE | 2023-12-10 12:37 | Infectious Disease Progress Nt ---
Date of Service December 10, 2023 Assessment & Plan (1) MSSA bacteremia: (2) Port-A-Cath in place: (3) Infection due to Port-A-Cath: Plan This is a 33-year-old woman with history of gastroparesis w/ chronic abdominal pain s/p PEG tube & ostomy placement, R chest port in place, TPN dependence, chronic pain syndrome (previously on ketamine infusion), pseudoseizures, chronic migraines, secondary hyperparathyroidism, hemorrhagic cystitis, endometriosis, who presents to [facility] on 12/[facility]23 for GPC bacteremia, found to have MSSA bacteremia. ID is consulted for MSSA bacteremia. The patient reports that 2 days [employer], she started having discomfort at her R chest port site, and that 1 day [employer] she noticed yellow, purulent drainage from the port site, and she could express pus with pushing on the site. No fevers, no chills when accessing the port. She typically has her port accessed 08/12 for TPN/fluids, and had it deaccessed. She also reports 1 week of PEG tube site redness, tenderness, and drainage. She contacted surgery who obtained blood cultures and placed her on Keflex TID she had taken 2 doses of this before she was contacted by surgery to notify her of positive BCx for GPCs, and was recommended to present to the ED. No fevers, chills, rashes at home. In the ED, afebrile T36.5 BP 129/87 HR 118 SpO2 96% RA. WBC 12.03 Cr 0.65 LFTs wnl. While in the ED, pseudoseizure event was noted. Her 12/01 BCx from both her port and peripheral BCx are growing Staph (BCID + Staph aureus, mecA negative) in all bottles. She received one dose of ceftriaxone then was changed to cefazolin. At the time of evaluation, afebrile. She reports pleuritic chest pain in her R chest that radiates to her back which is new. She also recently fell and injured her R hip, which has had stable pain. She reports that she is undergoing small bowel transplant eval at [facility] but is not currently listed for transplant. She reports a history of four prior port infections. She was last admitted to [facility] 02/2023 where she was found to have a port infection. L chest port wall Cx grew MSSA and Pseudomonas; catheter was removed and 03/05/23 catheter tip Cx with 3 morphologies of MSSA. BCx were NG. She was treated with a 14-day course of cefepime (03/1003/24/23). At the time she also had a spinal cord stimulator with a trial lead which was removed and spinal cord stimulator lead Cx were negative. Micro; BC 12/01 4/4 MSSA BC 12/02 2/4 MSSA LLQ wound cx 12/02 MSSA Cath tip cx 12/02 MSSA BC 12/04 NGTD # MSSA bacteremia -MARLY neg for vegatations # Suspected R chest port infection port removed 12/02, cath tip cx MSSA # R chest port was in place, TPN dependence #Chest wall port site abscess # Gastroparesis and chronic pain with PEG, ileostomy # History of port infection # Listed antibiotic allergies: amoxicillin (rash), cefazolin (rash) tolerates Keflex and ceftriaxone 11/2023, Bactrim (rash) Discussion Pt presented with high-grade MSSA bacteremia (and BCx + from both port and peripheral), and erythema and purulence at her port site. Suspect that the bacteremia is originally from her port. Given Staph aureus bacteremia, recommended port removal now s/p port removal on 12/02. Ideally recommend line holiday of 72 hours and clear BCx prior to replacing port. Initially BCx + MSSA on 12/01, repeat BCx on 12/02 MSSA. BC 12/04 NG so far. 12/02 TTE: LVEF normal, no regional WMAs, no significant valvular pathology, no valvular vegetation identified. She complained of R pleuritic and back pain A CT chest ordered because of Chest pain shows ? abscess sp Port removal and ? septic emboli. As on 12/06, she continues to have back pain PEG tube site noted to have some purulent drainage as well. CX also + MSSA. Cath tip + MSSA MRI spine L-T with no acute findings or bone involvment. 12/08- she developed R shoulder pain overnight. She now has new crepitus at R chest and decreased ROM of shoulder- R/O increased abscess, SSTI, septic joint 12/09- Ct chest with continued CW port site abscess, MARLY without vegatations. Recommendations: - Continue cefazolin 2g IV q8h - Aspiration of chest port site abscess seen on Ct chest and send for aerobic/anaerobic cx - Follow up repeat BC ( 12/04) Send additional BCx if positive. - Continue to monitor closely for any new/worsening focal complaints (e.g., joint pain , headache) with low threshold to image/evaluate as possible metastatic infection. - Recommend referral to outpatient allergy to clarify abx allergies including to penicillins and cephalosporins - Weekly lab monitoring while on IV antibiotics: CBC w/ diff, CMP, ESR, CRP - Ensure close follow-up with primary care - Recommend referral to local outpatient ID for follow-up if able -BC 12/04 NGTD, can place picc Anticipate at least 4-week course of abx after BCx clear, potentially longer if continued abscess on repeat CT imaging. Anticipate repear CT chest in 3 weeks to ensure abscess resolving Upon discharge, anticipate abx regimen as follows: can continue cefazolin 2g IV q8h or change to cefazolin 6g IV daily continuous infusion, depending on patient preference and insurance/home infusion options ID will continue to follow Fito Conner MD, MPH Infectious Disease [facility], ID Division Call [phone] with questions. Admission and Anticipated Discharge Date Admission Date: December 03, 2023 Subjective Subsequent visit was provided via telemedicine using two-way real-time interactive telecommunication between the patient and the telemedicine provider. For the duration of the visit, the provider was performing the assessment from a different facility than the patient. This includesuse of bluetooth stethosc ope forauscultationperformed by the telepresenter that the telemedicine provider can hear if described in the physical exam. Author Agent contact information: Please call [facility] Call Center . (Phone Number For Physician Use Only) After establishing a telemedicine visit, patient was: Patient was verified with two unique identifiers Time Spent with Patient: Subsequent => 35 min MARLY completed with no evidence of valve vegetations or echodensities -Continued R shoulder pain -CT chest with continued abscess -Afebrile -BC from 12/04 NGTD - Physical Exam Physical Exam: General: No acute distress HEENT: Anicteric sclera Resp: No increased work of breathing Chest: Former R port site - Sp removal, no erythema today, Not tender Less R chest wall crepitus Abd: Soft, nontender, nondistended. +PEG + Ileostomy Back: less mid back Tenderness radiating to R flank and R lower chest , Unchanged R shoulder tenderness and less crepitus radiating from R chest wall to shoulder. Decreased R shoulder ROM 2/2 pain. No warmth or erythema. Ext: No edema Neuro: Awake Alert oriented times 3. Non focal Psych: Pleasant, appropriate. Results & Data Vital Signs (Past 12 Hours) Vital Signs Temp Pulse Pulse Resp BP BP Pulse Ox 12/10/23 11:11 36.8 C 83 16 117/86 94 12/10/23 09:30 12/10/23 08:42 36.9 C 94 H 14 126/97 96 12/10/23 08:11 89 14 107/71 93 12/10/23 07:53 106 H 14 114/104 H 98 12/10/23 07:26 100 H 12/10/23 03:25 36.7 C 107 H 12 134/89 97 12/10/23 02:00 Pulse Ox O2 Del Method O2 Del Method O2 Flow Rate O2 Flow Rate 12/10/23 11:11 Nasal Cannula 2.0 12/10/23 09:30 Nasal Cannula 2 12/10/23 08:42 Nasal Cannula 2 12/10/23 08:11 Nasal Cannula 2 12/10/23 07:53 Room Air 12/10/23 07:26 12/10/23 03:25 Nasal Cannula 2 12/10/23 02:00 98 Nasal Cannula 2 Laboratory Results Short CBC 12/10/23 Range/Units 05:42 WBC 6.90 (4.8-10.8) K/ul Hgb 10.7 L (12.0-16.0) g/dl Hct 32.6 L (37.0-47.0) % Plt Count 332 (130-400) K/uL BMP 12/10/23 05:42 Sodium 141 Potassium 3.4 L Chloride 105 Carbon Dioxide 29 BUN 2 L Creatinine 0.50 L Glucose 82 Calcium 8.6 Liver Function 12/10/23 Range/Units 11:00 Total Bilirubin 0.2 (0.2-1.0) mg/dl AST 20 (13-39) U/L Alkaline Phosphatase 57 (34-104) U/L Diagnostic Findings Microbiology 12/09/23 09:11 Blood Aerobic Blood Culture - Preliminary No growth in Aerobic bottle after 24 hours. 12/09/23 09:11 Blood Anaerobic Blood Culture - Preliminary No growth in Anaerobic bottle after 24 hours. 12/09/23 09:07 Blood Aerobic Blood Culture - Preliminary No growth in Aerobic bottle after 24 hours. 12/09/23 09:07 Blood Anaerobic Blood Culture - Preliminary No growth in Anaerobic bottle after 24 hours. 12/03/23 01:26 Blood Aerobic Blood Culture - Final No growth in Aerobic bottle after 5 days. 12/03/23 01:26 Blood Anaerobic Blood Culture - Final 12/03/23 01:01 Blood Aerobic Blood Culture - Final Staphylococcus aureus 12/03/23 01:01 Blood Anaerobic Blood Culture - Final Staphylococcus aureus 12/05/23 07:42 Blood Aerobic Blood Culture - Preliminary No growth in Aerobic bottle after 24 hours. 12/05/23 07:42 Blood Anaerobic Blood Culture - Preliminary No growth in Anaerobic bottle after 24 hours. 12/05/23 07:30 Blood Aerobic Blood Culture - Preliminary No growth in Aerobic bottle after 24 hours. 12/05/23 07:30 Blood Anaerobic Blood Culture - Preliminary No growth in Anaerobic bottle after 24 hours. 12/03/23 11:30 Abdomen, Left Lower Quadrant Gram Stain - Final 12/03/23 11:30 Abdomen, Left Lower Quadrant Wound Culture - Final Staphylococcus aureus 12/03/23 Unknown Catheter Tip, A-port Catheter Tip Culture - Final Staphylococcus aureus Lumbar Spine MRI 12/08/23 09:36 Exam(s): MRI L SPINE W/WO Contrast IV Amt: 6.5ml gadavist EXAM: MR Lumbar Spine Without and With Intravenous Contrast CLINICAL HISTORY: Reason for exam: R sided back pain in setting of MSSA bacteremia. TECHNIQUE: Magnetic resonance images of the lumbar spine without and with intravenous contrast in multiple planes. CONTRAST: Patient received 6.5ml gadavist of IV contrast COMPARISON: Comparison made to prior CT scan of the pelvis from August 18, 2023. FINDINGS: Vertebrae: Mild dextroscoliosis and normal lumbar lordosis. No acute fracture. Spinal cord: The conus is normal size, shape and signal characteristics, terminating at L1-L2. No abnormal enhancement. Soft tissues: Unremarkable. DISCS/SPINAL CANAL/NEURAL FORAMINA: L1-L2: Unremarkable. No significant disc disease. No stenosis. L2-L3: Unremarkable. No significant disc disease. No stenosis. L3-L4: Unremarkable. No significant disc disease. No stenosis. L4-L5: Unremarkable. No significant disc disease. No stenosis. L5-S1: Unremarkable. No significant disc disease. No stenosis. IMPRESSION: No evidence of acute lumbar spine pathology. Electronically signed by: Janae Hernandez MD 12/09/23 01:00 AM Thoracic Spine MRI 12/08/23 09:36 Exam(s): MRI T SPINE W/WO Contrast IV Amt: 6.5ml gadavist EXAM: MR Thoracic Spine Without and With Intravenous Contrast CLINICAL HISTORY: Reason for exam: R sided back pain in setting of MSSA bacteremia. TECHNIQUE: Magnetic resonance images of the thoracic spine without and with intravenous contrast in multiple planes. CONTRAST: Patient received 6.5ml gadavist of IV contrast COMPARISON: MRI T-spine 11-08-2014. FINDINGS: Vertebrae: Moderate levoscoliosis and increased thoracic kyphosis. No acute fracture. Discs/spinal canal/neural foramina: No acute findings. No significant disc disease. No spinal canal stenosis. Spinal cord: Unremarkable. Normal signal. No abnormal enhancement. Soft tissues: Right pleural effusion. IMPRESSION: No evidence of acute thoracic spine pathology. Electronically signed by: Janae Hernandez MD 12/09/23 00:[address] 12/09/23 11:11 CT chest diagnostic w con CLINICAL HISTORY: new right chest wall pain TECHNIQUE: Multidetector row helical CT of the chest was performed with intravenous contrast. Coronal and sagittal reformations were obtained. Automated dose lowering techniques and/or adjustment according to patient size were utili zed for this exam. CT DOSE: 343.13 mGy.cm Comparison: Comparison is made to CT chest 12/05/2023 FINDINGS: Lungs and pleura: Atelectasis is seen in the bilateral lower lungs and there is a small right pleural effusion. Stable pulmonary nodules include the followin mm nodule in the right lower lobe superior segment (series 4 image 92) 12 mm nodular density in the right lower lobe (image 117) 2 mm nodule right lower lobe (image 141) 5 mm nodule left lower lobe (image 164) 2 mm nodule in the left lower lobe (image 165) 12 mm nodule in the right lower lobe (image 179) Heart and pericardium: Heart size is normal. No pericardial effusion. Vessels: Unremarkable. Mediastinum and harris: Unremarkable. Chest wall and lower neck: There is a 19 mm [facility], similar in size to prior exam. Abdomen: Partial visualization of a tube extending to the duodenum. Bones: Unremarkable. IMPRESSION: 1. Redemonstration of nodular densities in the lung, unchanged from prior exam. Trace right pleural effusion is unchanged. 2. Redemonstration of right chest wall gas and fluid collection. Findings remain concerning for right chest wall port site abscess. No new foci of disease are seen. ACT 112: Negative or not required by law. Electronically signed by: Tony Barnes M.D. 12/09/2023 1:14 PM Medications Administered Home Medications Medication Instructions Recorded Confirmed Last Taken dicyclomine 10 mg capsule 20 mg PO Q6H PRN Abdominal Pain 03/07/18 12/03/23 03/05/23 08:00 pantoprazole 40 mg tablet,delayed 40 mg PO QAM 09/08/19 12/03/23 12/02/23 release (Protonix) famotidine 40 mg tablet 20 mg PO BID 11/28/19 12/03/23 12/02/23 hydrocortisone 10 mg tablet See Rx Instructions .Route .COMPLEX 02/07/20 12/03/23 12/02/23 fexofenadine 180 mg tablet 180 mg PO HS 10/09/20 12/03/23 12/02/23 fludrocortisone 0.1 mg tablet 0.1 mg PO BID 12/12/20 12/03/23 12/02/23 acetaminophen 500 mg tablet 1,000 mg PO Q6H PRN Pain 06/13/21 12/03/23 03/04/23 23:30 (Tylenol Extra Strength) multivitamin with minerals-folic 2 tab PO HS 06/13/21 12/03/23 12/02/23 acid 200 mcg chewable tablet (Multivitamin Gummies) turmeric 400 mg capsule 400 mg PO HS 06/13/21 12/03/23 12/02/23 empty container (Enema Misc Bottle) #72 ea 01/16/22 12/03/23 Unknown cholecalciferol (vitamin D3) 25 50 mcg PO QAM 04/07/22 12/03/23 12/02/23 mcg (1,000 unit) capsule (Vitamin D3) duloxetine 60 mg capsule,delayed 60 mg PO QAM 04/07/22 12/03/2324 release methocarbamol 750 mg tablet 750 mg PO TID 04/07/22 12/03/23 12/02/23 coenzyme Q10 100 mg capsule 100 mg PO PM 07/22/22 12/03/23 12/02/23 (CoQ-10) pyridoxine (vitamin B6) 50 mg 50 mg PO QAM 07/22/22 12/03/23 12/02/23 tablet ondansetron 8 mg disintegrating 8 mg PO TID PRN Nausea 10/06/22 12/03/23 03/05/23 02:00 tablet fentanyl 75 mcg/hr transdermal 1 patch transdermal Q72H #10 ea 10/23/22 12/03/23 12/02/23 patch lorazepam 2 mg/mL injection 0.5 mg (0.25 mL) buccal QID PRN 12/04/22 12/03/23 03/05/23 08:00 solution (Ativan) Nausea #100 mL bethanechol chloride 25 mg tablet 12.5 mg (1/2 x 25 mg) PO BID PRN 12/05/22 12/03/23 03/04/23 19:00 urinary retention #20 tabs levothyroxine 50 mcg tablet 50 mcg PO QAM 03/04/23 12/03/23 12/02/23 (Synthroid) gabapentin 250 mg/5 mL oral 900 mg PO TID 03/10/23 12/03/23 12/02/23 solution oxycodone 20 mg/mL oral concentrate 20 mg PO QID PRN Pain 08/05/23 12/03/23 Unk nown calcium carbonate 250 mg PO QPM 11/10/23 12/03/23 12/02/23 norethindrone (contraceptive) 0.35 0.35 mg PO QAM 11/10/23 12/03/23 12/02/23 mg tablet Active Medications Generic Name Dose Route Start Last Admin Trade Name Freq PRN Reason Stop Dose Admin Acetaminophen 1,000 mg 12/03/23 02:30 12/05/23 08:07 Acetaminophen 500 Mg Tab PO 01/02/24 02:29 1,000 mg Q6H PRN Administration Pain Bethanechol Chloride 12.5 mg 12/03/23 02:30 12/10/23 09:41 Bethanechol Chl 25 Mg Tab PO 01/02/24 02:29 12.5 mg BID PRN Administration urinary retention Calcium Carbonate 0.5 tab 12/03/23 21:00 12/09/23 20:41 Calcium Carbonate 1250mg Tab PO 01/02/24 20:59 0.5 tab QPM EMERALD Administration Dicyclomine HCl 20 mg 12/03/23 02:30 12/10/23 09:39 Dicyclomine Hcl 10 Mg Cap PO 01/02/24 02:29 20 mg Q6H PRN Administration Abdominal Pain Duloxetine HCl 60 mg 12/03/23 09:00 12/10/23 09:39 Duloxetine Hcl 60 Mg Cap PO 01/02/24 08:59 60 mg QAM EMERALD Administration Famotidine 20 mg 12/03/23 09:00 12/10/23 09:39 Famotidine 20 Mg Tab PO 01/02/24 08:59 20 mg BID EMERALD Administration Fentanyl 1 patch 12/04/23 09:00 12/10/23 09:06 Fentanyl 75 Mcg/Hr Tdsy TD 12/18/23 08:59 1 patch Q72H EMERALD Administration Fexofenadine HCl 180 mg 12/03/23 21:00 12/09/23 20:43 Fexofenadine Hcl 180 Mg Tab PO 01/02/24 20:59 180 mg HS EMERALD Administration Fludrocortisone Acetate 0.1 mg 12/03/23 09:00 12/10/23 09:39 Fludrocortisone Acetate 0.1 Mg Tab PO 01/02/24 08:59 0.1 mg BID EMERALD Administration Gabapentin 900 mg 12/03/23 09:00 12/10/23 09:50 Gabapentin 250 Mg/5 Ml 470 Ml Btl PO 01/02/24 08:59 900 mg TID EMERALD Administration Hydrocortisone 10 mg 12/03/23 14:00 12/09/23 14:51 Hydrocortisone 10 Mg Tab PO 01/02/24 13:59 10 mg DAILY@1400 EMERALD Administration Hydrocortisone 15 mg 12/03/23 09:00 12/10/23 09:41 Hydrocortisone 10 Mg Tab PO 01/02/24 08:59 15 mg QAM EMERALD Administration Hydromorphone HCl 1 mg 12/09/23 15:00 12/10/23 09:49 Hydromorphone Inj 1 Mg/Ml Syringe IV 12/23/23 14:59 1 mg Q3H PRN Administration Pain Hyoscyamine 0.125 mg 12/03/23 09:54 12/06/23 08:11 Hyoscyamine Sulfate 0.125 Mg Tab PO 01/02/24 09:53 0.125 mg Q6H PRN Administration GI Upset Cefazolin Sodium 2,000 mg in 15 mls @ 3.75 mls/min 12/03/23 07:45 12/10/23 09:14 Ancef 2000mg IV 12/17/23 07:44 3.75 mls/min Q8H EMERALD Administration Lactated Ringer's 1,000 mls @ 100 mls/hr 12/09/23 17:00 12/10/23 09:29 Lr IV 01/08/24 16:59 100 mls/hr .Q10H EMERALD Administration Lorazepam 0.5 mg/ Syringe 0.5 mls @ 2 mls/min 12/09/23 19:44 12/10/23 09:14 IV 01/08/24 17:58 2 mls/min QID PRN Administration Anxiety/Agitation Levothyroxine Sodium 50 mcg 12/03/23 06:30 12/10/23 06:26 Levothyroxine Sodium 50 Mcg Tablet PO 01/02/24 06:29 50 mcg DAILYBB EMERALD Administration Lidocaine 1 patch 12/04/23 12:00 12/10/23 10:57 Lidocaine 5% 1 Patch TD 01/03/24 11:59 Not Given Q24H EMERALD Methocarbamol 750 mg 12/03/23 09:00 12/10/23 09:42 Methocarbamol 750 Mg Tablet PO 01/02/24 08:59 750 mg TID EMERALD Administration Miscellaneous 1 each 12/04/23 08:59 12/10/23 09:06 Fentanyl Patch Remove & Waste N/A 01/03/24 08:58 1 each Q3D@0859 EMERALD Administration Miscellaneous 1 each 12/03/23 08:00 12/10/23 08:44 Check Fentanyl Patch Placement N/A 01/02/24 07:59 1 each QS EMERALD Administration Miscellaneous 1 each 12/03/23 19:00 12/10/23 09:42 [Norethindrone 0.35mg] Patient's Own Med PO 01/02/24 18:59 1 each QAM EMERALD Administration Miscellaneous 1 each 12/05/23 00:00 12/10/23 00:17 Remove Lidoderm Patch N/A 01/04/24 00:00 Not Given DAILY@0000 [facility] Uzair Patch - Patient 1 each 12/04/23 22:39 12/04/23 23:05 's Own Med TD 01/03/24 22:38 1 patch UD PRN Administration Pain Ondansetron HCl 4 mg 12/03/23 03:35 12/10/23 03:35 Ondansetron Inj 2 Mg/Ml 2 Ml Vial IV 01/02/24 03:34 4 mg Q4H PRN Administration Nausea Oxycodone HCl 7.5 mg 12/09/23 15:00 12/10/23 08:53 Oxycodone Hcl Soln 5 Mg/5 Ml Udc PO 12/17/23 01:00 7.5 mg Q4H PRN Administration Pain (1-10) Pantoprazole Sodium 40 mg 12/03/23 09:00 12/10/23 09:38 Pantoprazole 40 Mg Tab PO 01/02/24 08:59 40 mg QAM EMERALD Administration Pyridoxine HCl 50 mg 12/03/23 09:00 12/10/23 09:41 Pyridoxine Hcl 50 Mg Tab PO 01/02/24 08:59 50 mg QAM EMERALD Administration Vitamin D 50 mcg 12/03/23 09:00 12/10/23 09:38 Cholecalciferol 25 Mcg (1000 Units) Tab PO 01/02/24 08:59 50 mcg QAM EMERALD Administration
[2023-12-10] MEDS: HYDROmorphone INJ 1 MG/ML SYRINGE IV PRN (17:21)
[2023-12-11 07:13] LABS: Anion Gap 8 (3-11); Calcium 8.8 mg/dl (8.6-10.3); Carbon Dioxide 30 mmol/L (21-32); Chloride 104 mmol/L (98-107); Magnesium 1.7 mg/dl (1.7-2.4); Potassium 3.3 mmol/L (3.5-5.1); Sodium 142 mmol/L (136-145)
[2023-12-11 07:15] LABS: Basophils # (auto) 0.05 K/uL (0.00-0.20); Basophils % (auto) 0.7 %; Eosinophils # (auto) 0.28 K/uL (0.00-0.50); Eosinophils % (auto) 4.2 %; Hematocrit (blood only) 33.3 % (37.0-47.0); Hemoglobin 11.1 g/dl (12.0-16.0); Immature Granulocytes # (auto) 0.02 K/uL (0.01-0.20); Immature Granulocytes % (auto) 0.3 %; Lymphocytes # (auto) 1.92 K/uL (1.20-3.40); Lymphocytes % (auto) 28.7 %; Mean Corpuscular Hgb Conc 33.3 g/dL (32.0-36.0); Mean Platelet Volume 9.8 fL (9.4-12.4); Monocytes # (auto) 0.73 K/uL (0.11-0.59); Monocytes % (auto) 10.9 %; Neutrophils # (auto) 3.69 K/uL (1.40-6.50); Neutrophils % (auto) 55.2 %; Platelet Count 373 K/uL (130-400); RDW Coefficient of Variation 11.9 % (11.5-14.5); RDW Standard Deviation 39.8 fL (36.4-46.3); Red Blood Count 3.58 M/uL (4.20-5.40); White Blood Count 6.69 K/ul (4.8-10.8)
[2023-12-11 07:24] LABS: Blood Urea Nitrogen < 2 mg/dl (6-23); Creatinine Clr Calc Pharmacy 165.9 ml/min; Est GFR (African American) > 150.0 ml/min; Est GFR (Non-African American) 132.6 ml/min; Glucose 79 mg/dl (70-99(Fasting)); Phosphorus 3.5 mg/dl (2.5-4.9)
--- NOTE | 2023-12-11 09:04 | Hospitalist Progress Note ---
"Date of Service December 11, 2023 Assessment & Plan (1) Gram-positive bacteremia: (2) Methicillin susceptible Staphylococcus aureus infection: (3) Central line infection: (4) Iron deficiency anemia: (5) Witnessed seizure-like activity: (6) Abdominal pain, chronic, generalized: (7) Sinus tachycardia: (8) Secondary hyperparathyroidism: (9) Gastroparesis: (10) Urinary retention: (11) Hemorrhagic cystitis: (12) Endometriosis: Plan Pt is a 33 yo female with a past medical history most relevant for chronic port placement for TPN, endometriosis, chronic abdominal pain s/p PEG tube and ostomy placement, PNES, chronic migraines, iron deficiency anemia, and hx of superior m esenteric syndrome, hx adrenal insufficiency who presents to the hospital for abdominal pain and port associated infection with MSSA bacteremia. MSSA Bacteremia secondary to chronic port placement - Moderate erythema w/o expressible purulence at port site on admission with culture + for MSSA - Infectious Disease consulted, apprec recommendations; * Blood cultures 12/01 indicative of gram positive bacteremia MSSA * Repeat cultures 12/04 negative still negative at >72 hours * Repeat blood cultures drawn 12/08 per ID recommendation, negative at 24 hours * continue cefazolin q8h - anticipate minimum 4 weeks IV abx - Port removed by gen surg 12/02 - Chest CT 12/04 R.L opacities compatible with pneumonia/septic emboli, trace R pleural effusion, right chest wall gas and fluid collection possibly abscess - Given new onset right chest wall pain, chest CT repeated 12/08 - redemonstration of 19mm gas/fluid collection in right chest wall, concerning for port site abscess - No IR available this week - [facility] gen surgery evaluated patient, felt finding was more consistent with seroma, recommended application of a pressure bandage. - TTE 12/02 neg but with bacteremia and now septic emboli in lungs, MARLY ordered to more confidently r/o endocarditis - MARLY 12/09 also negative - MRI T-spine/L-spine 12/07 negative TPN Dependence, Short Gut: - IV team consulted for PICC placement 12/09 - despite adequate hydration with IV fluids, venous access not amenable to PICC placement in either arm - Gen surgery recommends against port placement in an alternate location at this time due to proximity to active bacteremia - Vascular surgery consulted, pt to have Ted catheter placed today - Restart TPN after catheter placement Chronic Pain Syndrome | Pseudoseizures - Witnessed pseudoseizure in ED, noted to be a/w chronic pain, resolved with auditory support - Continue home medications Lorazepam 0.5 mg QID PRN Oxycodone 7.5 mg Q4h PRN Fentanyl patch 75 mcg Q 72H Gabapentin 900 mg PO TID Duloxetine 60 mg PO QAM - Additional Dilaudid 1 mg Q4h PRN for breakthrough/post-op pain - will continue to wean IV Dilaudid in preparation for eventual discharge - Continue antinausea treatment with Zofran and Ativan PRN Chronic Conditions - Gastroparesis: continue home medications, PEG and ostomy care inpatient, continue PPI - Iron Deficiency Anemia: continue supplementation - Secondary Hyperparathyroidism: continue home medications - Hemorrhagic cystitis: continue bethanechol PRN FEN/GI: LR 100mL/h, discontinue when starting TPN VTE ppx: deferred, ambulatory Admission and Anticipated Discharge Date Admission Date: December 03, 2023 Supervising Physician Co-Signing Physician Notes Attending Physician Supervision Note: I independently interviewed and examined the patient and verified the solorzano history and physical, reviewed labs and image studies and agree with findings and care plan noted above. Staph bacteremia - recurrent positive blood cultures and septic pulmonary emboli. Source likely port - removed by surgery. TTE and MARLY negative. MRI spine negative. -Chest CT with septic emboli and port site with persistent fluid collection - consulted surgery - likely postop seroma - no concern of infection. -12/04 cultures neg at >72hrs. continue cefazolin. -Norris catheter placed by vascular surgery- 12/10. -Plan to d/c home on thursday after IV abx delivered at home. Acute right upper abdomen/lower chest pain - main presenting complain on admission - ? sec to septic embolic. -continue home regimen of pain meds with some titration - fentanyl 50 -->75; oxycodone total 30mgs/24hr -->45mgs/24hrs. -IV dilaudid added on admission for acute pain - will continue to wean to prep for discharge - will space further to 1mgs q5hrs -consult U liaison for coaching with utilization of Mindfulness based techniques/modalities for pain control Chronic abdominal pain reports significant improvement after her most recent surgery with massive lysis of adhesions. ongoing pain control Short gut/IV nutrition dependentHickman cath placed. will start TPN. Subjective Pt seen at bedside following MARLY. No acute overnight events, patient notes that pain was a bit more noticeable after readjustment of pain regimen yesterday. Ongoing right clavicle/chest wall pain. Denies fevers/chills, SOB. Review of Systems Review of Systems: As per HPI. Physical Exam Physical Exam: General:Alert and oriented, no acute distress, HEENT: Normocephalic, moist oral mucosa, Cardio: Regular rate and rhythm, no murmur. Right anterior chest wall broadly tender to palpation, most localized to area under right clavicle. No crepitus appreciated. Resp:Lungs clear to auscultation b/l, no wheezes or rhonchi, mildly restricted lung excursion GI: Soft, bowel sounds active Skin: Warm, dry, no rashes noted Results & Data Results & Data Vital Signs (Past 12 Hours) Vital Signs Temp Pulse Pulse Resp BP Pulse Ox Pulse Ox 12/11/23 07:54 84 12/11/23 07:52 36.5 C 86 16 114/75 98 12/11/23 02:27 36.9 C 103 H 20 130/97 94 12/11/23 02:00 94 12/10/23 22:54 84 12/10/23 22:18 36.6 C 90 16 128/92 94 O2 Del Method O2 Del Method O2 Flow Rate O2 Flow Rate 12/11/23 07:54 12/11/23 07:52 Nasal Cannula 2.0 12/11/23 02:27 Nasal Cannula 2.0 12/11/23 02:00 Nasal Cannula 2 12/10/23 22:54 12/10/23 22:18 Nasal Cannula 2.0 Resident Activity Tracking Resident Involvement: Resident Care Provided Care Provided: Adult Hospital Medicine"
--- NOTE | 2023-12-11 09:18 | Consultation ---
Date of Consultation December 11, 2023 Assessment & Plan (1) Lack of intravenous access: Due to her multiple port insertions in the past we will order imaging of her int jug and subclavian veins for patency. Due to multiple infected ports and recent removal of an infected port, would favor a Ted catheter rather than port at this time. Will plan on insertion of Ted catheter later today. Thank you very much for letting us participate in the care of this patient. History of Present Illness Reason for Consultation: Lack of venous access Attending Physician: Catrina Turner MD History of Present Illness This is a 33yo female with short gut syndrome that has had multiple central venous line insertions and removals for infections. She only has a small peripheral IV at this time. She is in need of another central line access for TPN and blood draws. She denies any upper extremity DVT's in the past. She denies any arm swelling. Allergies Allergy/AdvReac Type Severity Reaction Status Date / Time diphenhydramine Allergy Severe Anaphylaxis Verified 12/03/23 01:23 promethazine Allergy Severe hives, Verified 12/03/23 01:23 throat swelling adhesive Allergy Intermediate Redness of Verified 12/03/23 01:23 Skin amoxicillin Allergy Intermediate RASH Verified 12/03/23 01:23 azithromycin [From Zithromax] Allergy Intermediate RASH/VOMITI Verified 12/03/23 01:23 NG calcium Allergy Intermediate SEE COMMENT Verified 12/03/23 01:23 [From VIACTIV Multi-Vitamin] cefazolin Allergy Intermediate rash Verified 12/03/23 01:23 Cephalosporins Allergy Intermediate HIVES Verified 12/03/23 01:23 clavulanic acid Allergy Intermediate HIVES Verified 12/03/23 01:23 ferric carboxymaltose Allergy Intermediate Rash Verified 12/03/23 01:23 [From Injectafer] folic acid Allergy Intermediate SEE COMMENT Verified 12/03/23 01:23 [From VIACTIV Multi-Vitamin] iron [From Venofer] Allergy Intermediate Muscle Pain Verified 12/03/23 01:23 multivitamin with minerals Allergy Intermediate SEE COMMENT Verified 12/03/23 01:23 [From VIACTIV Multi-Vitamin] Penicillins Allergy Intermediate HIVES Verified 12/03/23 01:23 prochlorperazine Allergy Intermediate HIVES Verified 12/03/23 01:23 sulfamethoxazole Allergy Intermediate RASH Verified 12/03/23 01:23 sumatriptan Allergy Intermediate RASH Verified 12/03/23 01:23 trimethoprim Allergy Intermediate RASH Verified 12/03/23 01:23 metoclopramide AdvReac Severe anxiety/ Verified 12/03/23 01:23 jittery morphine AdvReac Severe Severe Verified 12/03/23 01:23 abdominal Pain, sphincter of oddi spasms erythromycin base AdvReac Intermediate GI SYMPTOMS Verified 12/03/23 01:23 citalopram [From Celexa] AdvReac Unknown CAN'T Verified 12/03/23 01:23 REMEMBER Home Medications Medication Instructions Recorded Confirmed Type dicyclomine 10 mg capsule 20 mg PO Q6H PRN Abdominal Pain 03/07/18 12/03/23 History pantoprazole 40 mg tablet,delayed 40 mg PO QAM 09/08/19 12/03/23 History release (Protonix) famotidine 40 mg tablet 20 mg PO BID 11/28/19 12/03/23 History hydrocortisone 10 mg tablet See Rx Instructions .Route .COMPLEX 02/07/20 12/03/23 History fexofenadine 180 mg tablet 180 mg PO HS 10/09/20 12/03/23 History fludrocortisone 0.1 mg tablet 0.1 mg PO BID 12/12/20 12/03/23 History acetaminophen 500 mg tablet 1,000 mg PO Q6H PRN Pain 06/13/21 12/03/23 History (Tylenol Extra Strength) multivitamin with minerals-folic 2 tab PO HS 06/13/21 12/03/23 History acid 200 mcg chewable tablet (Multivitamin Gummies) turmeric 400 mg capsule 400 mg PO HS 06/13/21 12/03/23 History empty container (Enema Misc Bottle) #72 ea 01/16/22 12/03/23 Rx cholecalciferol (vitamin D3) 25 50 mcg PO QAM 04/07/22 12/03/23 History mcg (1,000 unit) capsule (Vitamin D3) duloxetine 60 mg capsule,delayed 60 mg PO QAM 04/07/22 12/03/23 History release methocarbamol 750 mg tablet 750 mg PO TID 04/07/22 12/03/23 History coenzyme Q10 100 mg capsule 100 mg PO PM 07/22/22 12/03/23 History (CoQ-10) pyridoxine (vitamin B6) 50 mg 50 mg PO QAM 07/22/22 12/03/23 History tablet ondansetron 8 mg disintegrating 8 mg PO TID PRN Nausea 10/06/22 12/03/23 History tablet fentanyl 75 mcg/hr transdermal 1 patch transdermal Q72H #10 ea 10/23/22 12/03/23 Rx patch lorazepam 2 mg/mL injection 0.5 mg (0.25 mL) buccal QID PRN 12/04/22 12/03/23 Rx solution (Ativan) Nausea #100 mL bethanechol chloride 25 mg tablet 12.5 mg (1/2 x 25 mg) PO BID PRN 12/05/22 12/03/23 Rx urinary retention #20 tabs levothyroxine 50 mcg tablet 50 mcg PO QAM 03/04/23 12/03/23 History (Synthroid) gabapentin 250 mg/5 mL oral 900 mg PO TID 03/10/23 12/03/23 History solution oxycodone 20 mg/mL oral concentrate 20 mg PO QID PRN Pain 08/05/23 12/03/23 History calcium carbonate 250 mg PO QPM 11/10/23 12/03/23 History norethindrone (contraceptive) 0.35 0.35 mg PO QAM 11/10/23 12/03/23 History mg tablet Patient History Medical History Endometrioma of ovary Urinary dysfunction Abdominal pain Pain disorder Generalized abdominal pain Hx of Clostridium difficile infection 5 years ago, tx. 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 carroll, [facility] Spinal cord stimulator status trial implanted 03/02/23, in dr. ramírez's office>advised to bring remote Chronic, continuous use of opioids Difficult intravenous access Intractable pain Abdominal pain Elevated lipase Transaminitis Colitis Chronic malnutrition Gastrostomy tube in place Intussusception hx PICC (peripherally inserted central catheter) in place TPN Pancreatitis hx Sphincter of Oddi dysfunction DECREASED GI MOTILITY Uses feeding tube gastroparesis and decreased GI motility can not tolerate feeding and uses TPN Epigastric abdominal pain Dehydration "kind of always dehydrated" Nausea Surgical History History of removal of Port-a-Cath (12/03/23) Port Removal(Right) - Jr Collins DO, FACS History of lysis of adhesions History of liver biopsy 2023 Hx of exploratory laparotomy History of esophagogastroduodenoscopy (EGD) Ileostomy status Hx of ileostomy Hx of colonoscopy during procedure perforated small bowel 10/27/[address] [facility], subsequent repair of duodenal area. History of bowel resection Part of duodenum removed due to necrosis; done at [facility] 2019 History of removal of Port-a-Cath 10/13/[address] Geiger, [facility], due to bacteremia/sepsis.; "inserted and removed multiple times" History of hysterectomy 09/27/19 History of appendectomy History of vascular access device 2017; implanted and removed "several" times Family History Father Hyperlipidemia Other No significant family history Social History Smoking Status: Never smoker Second Hand Exposure: No; Do You Dip or Chew Tobacco: No; Hx Alcohol Use: No Hx Substance Use: No Preferred Language: Hebrew Communication Ability: Effective Visual Impairment: No Limitations Hearing Ability: Normal Chief Controller Tower Required: No Beliefs That Will Affect Care: Restorationist marital status: Single Current Living Situation: Parent Current Living Situation Comment: Patient lives at home with both parents current occupational status: unemployed current occupation: completed 4-year degree at [employer] How many Children do You have: 0 Feels Safe at Home: Yes Diet: regular Sexual Activity Comment: not sexually active Assistive Devices: Crutches and Wheelchair Review of Systems Review of Systems: All systems reviewed & are unremarkable except as noted in HPI & below Physical Exam Constitutional: WD/WN, vitals as above Neck: normal visual inspection Respiratory: normal respiratory effort; no respiratory distress Cardiovascular: RRR, no murmur, no edema Gastrointestinal (Abdomen): Inspection/Auscultation: abdomen normal to inspection; abdomen not distended Percussion/Palpation: abdomen soft Neurologic: CN's II-XI intact bilaterally and moves all extremities Psychiatric: Orientation: alert and oriented x 3 Results & Data Vital Signs (Past 12 Hours) Vital Signs Temp Pulse Pulse Resp BP Pulse Ox Pulse Ox 12/11/23 07:54 84 12/11/23 07:52 36.5 C 86 16 114/75 98 12/11/23 02:27 36.9 C 103 H 20 130/97 94 12/11/23 02:00 94 12/10/23 22:54 84 12/10/23 22:18 36.6 C 90 16 128/92 94 O2 Del Method O2 Del Method O2 Flow Rate O2 Flow Rate 12/11/23 07:54 12/11/23 07:52 Nasal Cannula 2.0 12/11/23 02:27 Nasal Cannula 2.0 12/11/23 02:00 Nasal Cannula 2 12/10/23 22:54 12/10/23 22:18 Nasal Cannula 2.0
--- NOTE | 2023-12-11 10:17 | Ultrasound Report ---
US venous doppler UE BI HISTORY: 33 years-old Female need of iv access screening study for potential IV access COMPARISON: Chest CT 12/09/2023 TECHNIQUE: Multiple real-time sonographic images of the bilateral internal jugular and subclavian vei ns were obtained assessing grayscale appearance, color and spectral flow. FINDINGS: Unremarkable exam without thrombus identified. Normal waveforms are seen. IMPRESSION: Normal exam. ACT 112: Negative or not required by law. The above report was generated using voice recognition software. It may contain grammatical, syntax o r spelling errors. Electronically signed by: Derrek Sow M.D. 12/11/2023 10:15 AM
[2023-12-11] MEDS ORDERED: ONDANSETRON INJ 2 MG/ML 2 ML VIAL ONE (11:01)
[2023-12-11] MEDS ORDERED: MIDAZOLAM HCL 1 MG/ML 2ML VIAL ONE (11:01)
[2023-12-11] MEDS ORDERED: PROPOFOL IV EMULSION 10 MG/ML 20 ML VIAL IV ONE ×2 (11:01→11:02)
[2023-12-11] MEDS ORDERED: DEXAMETHASONE SOD INJ 4 MG/ML VIAL ONE (11:01)
[2023-12-11] MEDS ORDERED: LIDOCAINE 2% 2 ML VIAL/AMP(20MG/ML) INFIL ONE (11:01)
[2023-12-11] MEDS ORDERED: fentaNYL citrate PF 100 MCG/2 ML VIAL ONE (11:02)
--- NOTE | 2023-12-11 11:13 | Anesthesiology Consultation ---
Date of Service December 11, 2023 Assessment & Plan Chart Review Chart Review: Acceptable Risk for Surgery and Patient NOT seen in Pre Admission Testing History Surgery Operation Date: 12/03/23 08:10 Proposed Procedures p Port Removal - Jr Collins DO, FACS Operation Date: 12/10/23 07:15 Proposed Procedures p Transesophageal Echo w/Anesthesia - Stanton Gilbert MD Operation Date: 12/11/23 07:00 Proposed Procedures p Insertion of Ted Catheter - Jerod Marvin MD Height/Weight Height: 5 ft 6 in Weight: 65.6 kg Allergies Allergy/AdvReac Type Severity Reaction Status Date / Time diphenhydramine Allergy Severe Anaphylaxis Verified 12/11/23 11:11 promethazine Allergy Severe hives, Verified 12/11/23 11:11 throat swelling adhesive Allergy Intermediate Redness of Verified 12/11/23 11:11 Skin amoxicillin Allergy Intermediate RASH Verified 12/11/23 11:11 azithromycin [From Zithromax] Allergy Intermediate RASH/VOMITI Verified 12/11/23 11:11 NG calcium Allergy Intermediate SEE COMMENT Verified 12/11/23 11:11 [From VIACTIV Multi-Vitamin] cefazolin Allergy Intermediate rash Verified 12/11/23 11:11 Cephalosporins Allergy Intermediate HIVES Verified 12/11/23 11:11 clavulanic acid Allergy Intermediate HIVES Verified 12/11/23 11:11 ferric carboxymaltose Allergy Intermediate Rash Verified 12/11/23 11:11 [From Injectafer] folic acid Allergy Intermediate SEE COMMENT Verified 12/11/23 11:11 [From VIACTIV Multi-Vitamin] iron [From Venofer] Allergy Intermediate Muscle Pain Verified 12/11/23 11:11 multivitamin with minerals Allergy Intermediate SEE COMMENT Verified 12/11/23 11:11 [From VIACTIV Multi-Vitamin] Penicillins Allergy Intermediate HIVES Verified 12/11/23 11:11 prochlorperazine Allergy Intermediate HIVES Verified 12/11/23 11:11 sulfamethoxazole Allergy Intermediate RASH Verified 12/11/23 11:11 sumatriptan Allergy Intermediate RASH Verified 12/11/23 11:11 trimethoprim Allergy Intermediate RASH Verified 12/11/23 11:11 metoclopramide AdvReac Severe anxiety/ Verified 12/11/23 11:11 jittery morphine AdvReac Severe Severe Verified 12/11/23 11:11 abdominal Pain, sphincter of oddi spasms erythromycin base AdvReac Intermediate GI SYMPTOMS Verified 12/11/23 11:11 citalopram [From Celexa] AdvReac Unknown CAN'T Verified 12/11/23 11:11 REMEMBER Medications Home Medications Medication Instructions Recorded Confirmed Last Taken dicyclomine 10 mg capsule 20 mg PO Q6H PRN Abdominal Pain 03/07/18 12/03/23 03/05/23 08:00 pantoprazole 40 mg tablet,delayed 40 mg PO QAM 09/08/19 12/03/23 12/02/23 release (Protonix) famotidine 40 mg tablet 20 mg PO BID 11/28/19 12/03/23 12/02/23 hydrocortisone 10 mg tablet See Rx Instructions .Route .COMPLEX 02/07/20 12/03/23 12/02/23 fexofenadine 180 mg tablet 180 mg PO HS 10/09/20 12/03/23 12/02/23 fludrocortisone 0.1 mg tablet 0.1 mg PO BID 12/12/20 12/03/23 12/02/23 acetaminophen 500 mg tablet 1,000 mg PO Q6H PRN Pain 06/13/21 12/03/23 03/04/23 23:30 (Tylenol Extra Strength) multivitamin with minerals-folic 2 tab PO HS 06/13/21 12/03/23 12/02/23 acid 200 mcg chewable tablet (Multivitamin Gummies) turmeric 400 mg capsule 400 mg PO HS 06/13/21 12/03/23 12/02/23 empty container (Enema Misc Bottle) #72 ea 01/16/22 12/03/23 Unknown cholecalciferol (vitamin D3) 25 50 mcg PO QAM 04/07/22 12/03/23 12/02/23 mcg (1,000 unit) capsule (Vitamin D3) duloxetine 60 mg capsule,delayed 60 mg PO QAM 04/07/22 12/03/23 12/02/23 release methocarbamol 750 mg tablet 750 mg PO TID 04/07/22 12/03/23 12/02/23 coenzyme Q10 100 mg capsule 100 mg PO PM 07/22/22 12/03/23 12/02/23 (CoQ-10) pyridoxine (vitamin B6) 50 mg 50 mg PO QAM 07/22/22 12/03/23 12/02/23 tablet ondansetron 8 mg disintegrating 8 mg PO TID PRN Nausea 10/06/22 12/03/23 03/05/23 02:00 tablet fentanyl 75 mcg/hr transdermal 1 patch transdermal Q72H #10 ea 10/23/22 12/03/23 12/02/23 patch lorazepam 2 mg/mL injection 0.5 mg (0.25 mL) buccal QID PRN 12/04/22 12/03/23 03/05/23 08:00 solution (Ativan) Nausea #100 mL bethanechol chloride 25 mg tablet 12.5 mg (1/2 x 25 mg) PO BID PRN 12/05/22 12/03/23 03/04/23 19:00 urinary retention #20 tabs levothyroxine 50 mcg tablet 50 mcg PO QAM 03/04/23 12/03/23 12/02/23 (Synthroid) gabapentin 250 mg/5 mL oral 900 mg PO TID 03/10/23 12/03/23 12/02/23 solution oxycodone 20 mg/mL oral concentrate 20 mg PO QID PRN Pain 08/05/23 12/03/23 Unknown calcium carbonate 250 mg PO QPM 11/10/23 12/03/23 12/02/23 norethindrone (contraceptive) 0.35 0.35 mg PO QAM 11/10/23 12/03/23 12/02/23 mg tablet Active Medications Generic Name Dose Route Start Last Admin Trade Name Freq PRN Reason Stop Dose Admin Acetaminophen 1,000 mg 12/03/23 02:30 12/05/23 08:07 Acetaminophen 500 Mg Tab PO 01/02/24 02:29 1,000 mg Q6H PRN Administration Pain Bethanechol Chloride 12.5 mg 12/03/23 02:30 12/11/23 08:22 Bethanechol Chl 25 Mg Tab PO 01/02/24 02:29 12.5 mg BID PRN Administration urinary retention Calcium Carbonate 0.5 tab 12/03/23 21:00 12/10/23 21:01 Calcium Carbonate 1250mg Tab PO 01/02/24 20:59 0.5 tab QPM EMERALD Administration Dicyclomine HCl 20 mg 12/03/23 02:30 12/11/23 08:23 Dicyclomine Hcl 10 Mg Cap PO 01/02/24 02:29 20 mg Q6H PRN Administration Abdominal Pain Duloxetine HCl 60 mg 12/03/23 09:00 12/11/23 08:23 Duloxetine Hcl 60 Mg Cap PO 01/02/24 08:59 60 mg QAM EMERALD Administration Famotidine 20 mg 12/03/23 09:00 12/11/23 08:22 Famotidine 20 Mg Tab PO 01/02/24 08:59 20 mg BID EMERALD Administration Fentanyl 1 patch 12/04/23 09:00 12/10/23 09:06 Fentanyl 75 Mcg/Hr Tdsy TD 12/18/23 08:59 1 patch Q72H EMERALD Administration Fexofenadine HCl 180 mg 12/03/23 21:00 12/10/23 21:02 Fexofenadine Hcl 180 Mg Tab PO 01/02/24 20:59 180 mg HS EMERALD Administration Fludrocortisone Acetate 0.1 mg 12/03/23 09:00 12/11/23 08:22 Fludrocortisone Acetate 0.1 Mg Tab PO 01/02/24 08:59 0.1 mg BID EMERALD Administration Gabapentin 900 mg 12/03/23 09:00 12/11/23 08:21 Gabapentin 250 Mg/5 Ml 470 Ml Btl PO 01/02/24 08:59 900 mg TID EMERALD Administration Hydrocortisone 10 mg 12/03/23 14:00 12/10/23 13:44 Hydrocortisone 10 Mg Tab PO 01/02/24 13:59 10 mg DAILY@1400 EMERALD Administration Hydrocortisone 15 mg 12/03/23 09:00 12/11/23 08:24 Hydrocortisone 10 Mg Tab PO 01/02/24 08:59 15 mg QAM EMERALD Administration Hydromorphone HCl 1 mg 12/10/23 13:11 12/11/23 10:33 Hydromorphone Inj 1 Mg/Ml Syringe IV 12/23/23 14:59 1 mg Q4H PRN Administration Pain Hyoscyamine 0.125 mg 12/03/23 09:54 12/06/23 08:11 Hyoscyamine Sulfate 0.125 Mg Tab PO 01/02/24 09:53 0.125 mg Q6H PRN Administration GI Upset Cefazolin Sodium 2,000 mg in 15 mls @ 3.75 mls/min 12/03/23 07:45 12/11/23 08:21 Ancef 2000mg IV 12/17/23 07:44 3.75 mls/min Q8H EMERALD Administration Lactated Ringer's 1,000 mls @ 100 mls/hr 12/09/23 17:00 12/11/23 06:36 Lr IV 01/08/24 16:59 100 mls/hr .Q10H EMERALD Administration Lorazepam 0.5 mg/ Syringe 0.5 mls @ 2 mls/min 12/09/23 19:44 12/11/23 09:14 IV 01/08/24 17:58 2 mls/min QID PRN Administration Anxiety/Agitation Levothyroxine Sodium 50 mcg 12/03/23 06:30 12/11/23 05:14 Levothyroxine Sodium 50 Mcg Tablet PO 01/02/24 06:29 50 mcg DAILYBB EMERALD Administration Lidocaine 1 patch 12/04/23 12:00 12/10/23 10:57 Lidocaine 5% 1 Patch TD 01/03/24 11:59 Not Given Q24H EMERALD Methocarbamol 750 mg 12/03/23 09:00 12/11/23 08:22 Methocarbamol 750 Mg Tablet PO 01/02/24 08:59 750 mg TID EMERALD Administration Miscellaneous 1 each 12/04/23 08:59 12/10/23 09:06 Fentanyl Patch Remove & Waste N/A 01/03/24 08:58 1 each Q3D@0859 EMERALD Administration Miscellaneous 1 each 12/03/23 08:00 12/11/23 08:21 Check Fentanyl Patch Placement N/A 01/02/24 07:59 1 each QS EMERALD Administration Miscellaneous 1 each 12/03/23 19:00 12/11/23 08:25 [Norethindrone 0.35mg] Patient's Own Med PO 01/02/24 18:59 1 each QAM EMERALD Administration Miscellaneous 1 each 12/05/23 00:00 12/11/23 00:52 Remove Lidoderm Patch N/A 01/04/24 00:00 Not Given DAILY@0000 EMERALD Uzair Patch - Patient 1 each 12/04/23 22:39 12/04/23 23:05 's Own Med TD 01/03/24 22:38 1 patch UD PRN Administration Pain Ondansetron HCl 4 mg 12/03/23 03:35 12/11/23 09:14 Ondansetron Inj 2 Mg/Ml 2 Ml Vial IV 01/02/24 03:34 4 mg Q4H PRN Administration Nausea Oxycodone HCl 7.5 mg 12/09/23 15:00 12/11/23 05:14 Oxycodone Hcl Soln 5 Mg/5 Ml Udc PO 12/17/23 01:00 7.5 mg Q4H PRN Administration Pain (1-10) Pantoprazole Sodium 40 mg 12/03/23 09:00 12/11/23 08:24 Pantoprazole 40 Mg Tab PO 01/02/24 08:59 40 mg QAM EMERALD Administration Pyridoxine HCl 50 mg 12/03/23 09:00 12/11/23 08:23 Pyridoxine Hcl 50 Mg Tab PO 01/02/24 08:59 50 mg QAM EMERALD Administration Vitamin D 50 mcg 12/03/23 09:00 12/11/23 08:23 Cholecalciferol 25 Mcg (1000 Units) Tab PO 01/02/24 08:59 50 mcg QAM EMERALD Administration NPO Date Last Intake of Fluids: 12/01/23 Date Last Intake of Solids: 12/03/23 Time Last Intake of Solids: 09:00 Past Medical History Medical History Endometrioma of ovary Urinary dysfunction Abdominal pain Pain disorder Generalized abdominal pain Hx of Clostridium difficile infection 5 years ago, tx. 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 carroll, [facility] Spinal cord stimulator status trial implanted 03/02/23, in dr. ramírez's office>advised to bring remote Chronic, continuous use of opioids Difficult intravenous access Intractable pain Abdominal pain Elevated lipase Transaminitis Colitis Chronic malnutrition Gastrostomy tube in place Intussusception hx PICC (peripherally inserted central catheter) in place TPN Pancreatitis hx Sphincter of Oddi dysfunction DECREASED GI MOTILITY Uses feeding tube gastroparesis and decreased GI motility can not tolerate feeding and uses TPN Epigastric abdominal pain Dehydration "kind of always dehydrated" Nausea Past Family History Family History Father Hyperlipidemia Other No significant family history Past Surgical History Surgical History History of removal of Port-a-Cath (12/03/23) Port Removal(Right) - Jr Collins DO, FACS History of lysis of adhesions History of liver biopsy 2023 Hx of exploratory laparotomy History of esophagogastroduodenoscopy (EGD) Ileostomy status Hx of ileostomy Hx of colonoscopy during procedure perforated small bowel 10/27/2019 at [facility], subsequent repair of duodenal area. History of bowel resection Part of duodenum removed due to necrosis; done at [facility] 2019 History of removal of Port-a-Cath 10/13/[address] Geiger, [facility], due to bacteremia/sepsis.; "inserted and removed multiple times" History of hysterectomy 09/27/19 History of appendectomy History of vascular access device 2017; implanted and removed "several" times Social History Smoking Status: Never smoker Do You Dip or Chew Tobacco: No Hx Alcohol Use: No Hx Substance Use: No substance use type: does not use Physical Exam Vital Signs Last Vital Signs Temp 36.8 C 12/11/23 11:04 Pulse 87 12/11/23 11:04 Resp 18 12/11/23 11:04 BP 126/92 12/11/23 11:04 Pulse Ox 98 12/11/23 11:04 O2 Del Method Nasal Cannula 12/11/23 11:04 O2 Flow Rate 2 12/11/23 11:04 ENMT Mouth: no TMJ abnormality and no dentition abnormality Thyromental Distance: > or= 3.5 Finger Breadths Mallampati Class: II Neck neck extension not limited Respiratory normal respiratory effort; no respiratory distress Auscultation: lungs clear to auscultation bilaterally Cardiovascular Rate/Rhythm: regular rate and regular rhythm Neurologic moves all extremities Psychiatric Orientation: alert and oriented x 3 Testing Laboratory Results 12/11/23 06:39 12/11/23 05:27 12/09/23 09:11 Aerobic Blood Culture - Preliminary Blood No growth in Aerobic bottle after 48 hours. Anaerobic Blood Culture - Preliminary No growth in Anaerobic bottle after 48 hours. 12/09/23 09:07 Aerobic Blood Culture - Preliminary Blood No growth in Aerobic bottle after 48 hours. Anaerobic Blood Culture - Preliminary No growth in Anaerobic bottle after 48 hours. 12/03/23 01:26 Aerobic Blood Culture - Final Blood No growth in Aerobic bottle after 5 days. Anaerobic Blood Culture - Final 12/03/23 01:01 Aerobic Blood Culture - Final Blood Staphylococcus aureus Anaerobic Blood Culture - Final Staphylococcus aureus 12/05/23 07:42 Aerobic Blood Culture - Preliminary Blood No growth in Aerobic bottle after 24 hours. Anaerobic Blood Culture - Preliminary No growth in Anaerobic bottle after 24 hours. 12/05/23 07:30 Aerobic Blood Culture - Preliminary Blood No growth in Aerobic bottle after 24 hours. Anaerobic Blood Culture - Preliminary No growth in Anaerobic bottle after 24 hours. 12/03/23 11:30 Gram Stain - Final Abdomen, Left Lower Quadrant Wound Culture - Final Staphylococcus aureus 12/03/23 Unknown Catheter Tip Culture - Final Catheter Tip, A-port Staphylococcus aureus
[2023-12-11] MEDS ORDERED: ATROPINE SULFATE 0.1 MG/ML 10ML SYR IV PRN (11:14)
[2023-12-11] MEDS ORDERED: ePHEDrine sulfate 50 MG/ML AMP IV PRN (11:14)
[2023-12-11] MEDS ORDERED: ONDANSETRON INJ 2 MG/ML 2 ML VIAL IV PRN (11:14)
[2023-12-11] MEDS ORDERED: fentaNYL citrate PF 100 MCG/2 ML VIAL IV PRN (11:14)
--- NOTE | 2023-12-11 12:36 | Operative Report ---
Post Operative Report Pre & Post Diagnosis Operation Date: 12/11/23 07:00 Pre-Op Diagnosis: Lack of Venous Access Post-Op Diagnosis: Lack of Venous Access I identified the patient and participated in the time-out.: Yes Procedure Operation Date: 12/11/23 07:00 Actual Procedures p Insertion of Norris Catheter, Left Internal Jugular Approach, Ultrasound Localization of Left Internal Jugular Vein, Fluoroscopy for Positioning (Left) - Jerod Marvin MD Surgeon Jerod Marvin MD Actuarial Intern none Estimated Blood Loss 5 Findings Consistent with Post-Op Diagnosis Specimens none Anesthesia Type General Complications none Disposition Accompanied Patient To Recovery: No Disposition: Recovery Room Indications 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 She had a port removed due to infection a few days prior to this. She is in need of an access for TPN, IVs, and blood draws. PICC lines were unsuccessful. She has had multiple central lines in the past. Insertion of a Norris due to the fact that she has had a port infection and still being treated for this was recommended. I have discussed the risks options and benefits of the procedure with the patient. The patient understands the risks options and benefits and agrees to the procedure. Description of Procedure Patient was taken to the angio suite and placed in the supine position. The le ft side of the neck and chest wall were prepped and draped in a sterile manner. The patient was identified and a timeout performed. Ultrasound was then used to locate the left internal jugular vein. The vein compressed easily, had no filing defects, and was patent but was small in caliber. The vein was then punctured under direct ultrasound imaging using micropuncture technique.. A guidewire was then passed centrally under fluoroscopic imaging. A stab wound was then made in the anterior chest wall and a Norris catheter was passed from the stab wound on the chest wall to the puncture site on the neck. The micropuncture sheath was removed and upsized to the peel-away sheath. The Norris catheter was then cut to the appropriate length and inserted through the sheath to a central position in the distal superior vena cava. The peel away sheath was then removed. The catheter was then sutured in place using nylon sutures. The puncture was then closed using a 4-0 Vicryl subcuticular suture. Dermabond was used for a dressing on the puncture site. Both ports aspirated and flushed easily and were then packed with heparinized saline. A sterile dressing was applied to the catheter. The patient left the operation room in satisfactory condition and tolerated the procedure well. All needle and sponge counts were correct at the end of the procedure. I attest to the content of the Intraoperative Record and any orders documented therein. Any exceptions are noted below.
--- NOTE | 2023-12-11 13:42 | Anesthesiology Progress Note ---
Date of Service December 11, 2023 Anesthesia Post Procedure Vital Signs Vital Signs: Temp Pulse Pulse Pulse Resp BP BP 12/11/23 13:25 37.3 C 96 H 17 122/81 12/11/23 13:15 37.3 C 90 16 116/84 12/11/23 13:05 88 15 118/88 12/11/23 12:55 85 17 118/87 12/11/23 12:45 84 13 125/94 12/11/23 12:38 36.1 C L 88 10 L 131/103 H 12/11/23 11:04 36.8 C 87 18 126/92 12/11/23 08:21 12/11/23 07:54 84 12/11/23 07:52 36.5 C 86 16 114/75 12/11/23 02:27 36.9 C 103 H 20 130/97 12/11/23 02:00 12/10/23 22:54 84 12/10/23 22:18 36.6 C 90 16 128/92 12/10/23 21:00 12/10/23 19:11 36.7 C 90 18 125/88 12/10/23 15:03 36.8 C 96 H 18 128/88 12/10/23 14:20 129 H Pulse Ox Pulse Ox O2 Del Method O2 Del Method O2 Flow Rate O2 Flow Rate 12/11/23 13:25 92 Room Air 0 12/11/23 13:15 93 Room Air 0 12/11/23 13:05 93 Room Air 0 12/11/23 12:55 93 Room Air 0 12/11/23 12:45 94 Room Air 0 12/11/23 12:38 99 Room Air 5 12/11/23 11:04 98 Nasal Cannula 2 12/11/23 08:21 Nasal Cannula 2 12/11/23 07:54 12/11/23 07:52 98 Nasal Cannula 2.0 12/11/23 02:27 94 Nasal Cannula 2.0 12/11/23 02:00 94 Nasal Cannula 2 12/10/23 22:54 12/10/23 22:18 94 Nasal Cannula 2.0 12/10/23 21:00 Nasal Cannula 2 12/10/23 19:11 96 Nasal Cannula 2.0 12/10/23 15:03 97 Nasal Cannula 2 12/10/23 14:20 Pain Intensity Right Abdomen: Pain Intensity: 7 Transfer of Care Handoff Completed per policy Notes Mental Status: alert / awake / arousable and participated in evaluation Patient Amnestic to Procedure: Yes Nausea / Vomiting: adequately controlled Pain: adequately controlled Airway Patency, RR, SpO2: stable & adequate BP & HR: stable & adequate Hydration State: stable & adequate Anesthetic Complications: no major complications apparent and Pt Satisfied with anesthetic care
[2023-12-11] MEDS: LIDOCAINE 1% LOCAL 20 ML VIAL ONE (13:54)
[2023-12-11] MEDS: HEPARIN SOD (PORCINE) 1000 UNIT/ML ONE (13:54)
[2023-12-11] MEDS ORDERED: DEXTROSE 10% 1,000 ML IV PRN (14:01)
--- NOTE | 2023-12-11 14:16 | Infectious Disease Progress Nt ---
Date of Service December 11, 2023 Assessment & Plan (1) MSSA bacteremia: (2) Port-A-Cath in place: (3) Infection due to Port-A-Cath: Plan This is a 33-year-old woman with history of gastroparesis w/ chronic abdominal pain s/p PEG tube & ostomy placement, R chest port in place, TPN dependence, chronic pain syndrome (previously on ketamine infusion), pseudoseizures, chronic migraines, secondary hyperparathyroidism, hemorrhagic cystitis, endometriosis, who presents to [facility] on 12/[facility]23 for GPC bacteremia, found to have MSSA bacteremia. ID is consulted for MSSA bacteremia. 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 No fevers, no chills when accessing the port. She typically has her port accessed 08/12 for TPN/fluids, and had it deaccessed. She also reports 1 week of PEG tube site redness, tenderness, and drainage. She contacted surgery who obtained blood cultures and placed her on Keflex TID she had taken 2 doses of this before she was contacted by surgery to notify her of positive BCx for GPCs, and was recommended to present to the ED. No fevers, chills, rashes at home. In the ED, afebrile T36.5 BP 129/87 HR 118 SpO2 96% RA. WBC 12.03 Cr 0.65 LFTs wnl. While in the ED, pseudoseizure event was noted. Her 12/01 BCx from both her port and peripheral BCx are growing Staph (BCID + Staph aureus, mecA negative) in all bottles. She received one dose of ceftriaxone then was changed to cefazolin. At the time of evaluation, afebrile. She reports pleuritic chest pain in her R chest that radiates to her back which is new. She also recently fell and injured her R hip, which has had stable pain. She reports that she is undergoing small bowel transplant eval at [facility] but is not currently listed for transplant. She reports a history of four prior port infections. She was last admitted to [facility] 02/2023 where she was found to have a port infection. L chest port wall Cx grew MSSA and Pseudomonas; catheter was removed and 03/05/23 catheter tip Cx with 3 morphologies of MSSA. BCx were NG. She was treated with a 14-day course of cefepime (03/1003/24/23). At the time she also had a spinal cord stimulator with a trial lead which was removed and spinal cord stimulator lead Cx were negative. Micro; BC 12/01 4/4 MSSA BC 12/02 2/4 MSSA LLQ wound cx 12/02 MSSA Cath tip cx 12/02 MSSA BC 12/04 NG BC 12/08 NGTD # MSSA bacteremia -MARLY neg for vegatations # Suspected R chest port infection port removed 12/02, cath tip cx MSSA # R chest port was in place, TPN dependence #Chest wall port site ?abscess # Gastroparesis and chronic pain with PEG, ileostomy # History of port infection # Listed antibiotic allergies: amoxicillin (rash), cefazolin (rash) tolerates Keflex and ceftriaxone 11/2023, Bactrim (rash) Discussion Pt presented with high-grade MSSA bacteremia (and BCx + from both port and peripheral), and erythema and purulence at her port site. Suspect that the bacteremia is originally from her port. Given Staph aureus bacteremia, recommended port removal now s/p port removal on 12/02. Ideally recommend line holiday of 72 hours and clear BCx prior to replacing port. Initially BCx + MSSA on 12/01, repeat BCx on 12/02 MSSA. BC 12/04 NG so far. 12/02 TTE: LVEF normal, no regional WMAs, no significant valvular pathology, no valvular vegetation identified. She complained of R pleuritic and back pain A CT chest ordered because of Chest pain shows ? abscess sp Port removal and ? septic emboli. As on 12/06, she continues to have back pain PEG tube site noted to have some purulent drainage as well. CX also + MSSA. Cath tip + MSSA MRI spine L-T with no acute findings or bone involvement. 12/08- she developed R shoulder pain overnight. She now has new crepitus at R chest and decreased ROM of shoulder- R/O increased abscess, SSTI, septic joint 12/09- Ct chest with continued CW port site abscess, MARLY without vegatations.No evidence of septic arthritis. IR and surgery did not pursue Aspiration of chest port site abscess seen on Ct chest 12/10 seen by vascular, Poor access- unable to place picc or port. Pending Ocampo catheter . Continues to have R shoulder pain. Reviewed CT chest again with rads and able to see R shoulder and no evidence of osteo or septic joint Recommendations: - Continue cefazolin 2g IV q8h - Follow up repeat BC ( 12/08) Send additional BCx if positive. - Continue to monitor closely for any new/worsening focal complaints (e.g., joint pain , headache) with low threshold to image/evaluate as possible metastatic infection. - Recommend referral to outpatient allergy to clarify abx allergies including to penicillins and cephalosporins - Weekly lab monitoring while on IV antibiotics: CBC w/ diff, CMP, ESR, CRP - Ensure close follow-up with primary care - Recommend referral to local outpatient ID for follow-up if able Anticipate at least 4-week course of abx after BCx clear, ( EOT 01/05 TENTATIVE) potentially longer if continued abscess on repeat CT imaging. REPEAT CT chest in 3 weeks ( ~ 12/27) to ensure abscess resolving. If not resolving, would pursue aspiration and continued IV abx until resolution. If resolved , then complete abx at 4 weeks. If continued abx to 6 weeks then EOT 01/19. Upon discharge, anticipate abx regimen as follows: Cefazolin 2g IV q8h or change to cefazolin 6g IV daily continuous infusion, depending on patient preference and insurance/home infusion options ID will sign off. Please call if 12/08 BC + or if evidence of new metastatic disease or new fever. Fito Conner MD, MPH Infectious Disease [facility], ID Division Call [phone] with questions. Admission and Anticipated Discharge Date Admission Date: December 03, 2023 Subjective Subsequent visit was provided via telemedicine using two-way real-time interactive telecommunication between the patient and the telemedicine provider. For the duration of the visit, the provider was performing the assessment from a different facility than the patient. This includesuse of bluetooth stethoscope forauscultationperformed by the telepresenter that the telemedicine provider can hear if described in the physical exam. [employer] Tender contact information: Please call [facility] Center . (Phone Number For Physician Use Only) After establishing a telemedicine visit, patient was: Patient was verified with two unique identifiers Time Spent with Patient: Subsequent => 25 min pending ocampo still has R shoulder, back RL rib tenderness BC NG 12/04 and NGTD 12/08 Mother at BS Physical Exam Physical Exam: General: No acute distress HEENT: Anicteric sclera Resp: No increased work of breathing Chest: Former R port site - Sp removal, no erythema, Not tender. No R chest wall crepitus Abd: Soft, nontender, nondistended. +PEG + Ileostomy Back: less mid back Tenderness radiating to R flank and R lower chest , Unchanged R shoulder tenderness and no crepitus radiating from R chest wall to shoulder. Decreased R shoulder ROM 2/2 pain. No warmth or erythema. Ext: No edema Neuro: Awake Alert oriented times 3. Non focal Psych: Pleasant, appropriate. Results & Data Vital Signs (Past 12 Hours) Vital Signs Temp Pulse Pulse Pulse Resp BP BP 12/11/23 13:50 37.0 C 92 H 16 115/90 12/11/23 13:25 37.3 C 96 H 17 122/81 12/11/23 13:15 37.3 C 90 16 116/84 12/11/23 13:05 88 15 118/88 12/11/23 12:55 85 17 118/87 12/11/23 12:45 84 13 125/94 12/11/23 12:38 36.1 C L 88 10 L 131/103 H 12/11/23 11:04 36.8 C 87 18 126/92 12/11/23 08:21 12/11/23 07:54 84 12/11/23 07:52 36.5 C 86 16 114/75 12/11/23 02:27 36.9 C 103 H 20 130/97 Pulse Ox O2 Del Method O2 Flow Rate 12/11/23 13:50 93 Room Air 12/11/23 13:25 92 Room Air 0 12/11/23 13:15 93 Room Air 0 12/11/23 13:05 93 Room Air 0 12/11/23 12:55 93 Room Air 0 12/11/23 12:45 94 Room Air 0 12/11/23 12:38 99 Room Air 5 12/11/23 11:04 98 Nasal Cannula 2 12/11/23 08:21 Nasal Cannula 2 12/11/23 07:54 12/11/23 07:52 98 Nasal Cannula 2.0 12/11/23 02:27 94 Nasal Cannula 2.0 Laboratory Results Short CBC 12/11/23 Range/Units 06:39 WBC 6.69 (4.8-10.8) K/ul Hgb 11.1 L (12.0-16.0) g/dl Hct 33.3 L (37.0-47.0) % Plt Count 373 (130-400) K/uL BMP 12/11/23 05:27 Sodium 142 Potassium 3.3 L Chloride 104 Carbon Dioxide 30 BUN < 2 L Creatinine 0.46 L Glucose 79 Calcium 8.8 Diagnostic Findings Microbiology 12/09/23 09:11 Blood Aerobic Blood Culture - Preliminary No growth in Aerobic bottle after 48 hours. 12/09/23 09:11 Blood Anaerobic Blood Culture - Preliminary No growth in Anaerobic bottle after 48 hours. 12/09/23 09:07 Blood Aerobic Blood Culture - Preliminary No growth in Aerobic bottle after 48 hours. 12/09/23 09:07 Blood Anaerobic Blood Culture - Preliminary No growth in Anaerobic bottle after 48 hours. 12/03/23 01:26 Blood Aerobic Blood Culture - Final No growth in Aerobic bottle after 5 days. 12/03/23 01:26 Blood Anaerobic Blood Culture - Final 12/03/23 01:01 Blood Aerobic Blood Culture - Final Staphylococcus aureus 12/03/23 01:01 Blood Anaerobic Blood Culture - Final Staphylococcus aureus 12/05/23 07:42 Blood Aerobic Blood Culture - Preliminary No growth in Aerobic bottle after 24 hours. 12/05/23 07:42 Blood Anaerobic Blood Culture - Preliminary No growth in Anaerobic bottle after 24 hours. 12/05/23 07:30 Blood Aerobic Blood Culture - Preliminary No growth in Aerobic bottle after 24 hours. 12/05/23 07:30 Blood Anaerobic Blood Culture - Preliminary No growth in Anaerobic bottle after 24 hours. 12/03/23 11:30 Abdomen, Left Lower Quadrant Gram Stain - Final 12/03/23 11:30 Abdomen, Left Lower Quadrant Wound Culture - Final Staphylococcus aureus 12/03/23 Unknown Catheter Tip, A-port Catheter Tip Culture - Final Staphylococcus aureus Lumbar Spine MRI 12/08/23 09:36 Exam(s): MRI L SPINE W/WO Contrast IV Amt: 6.5ml gadavist EXAM: MR Lumbar Spine Without and With Intravenous Contrast CLINICAL HISTORY: Reason for exam: R sided back pain in setting of MSSA bacteremia. TECHNIQUE: Magnetic resonance images of the lumbar spine without and with intravenous contrast in multiple planes. CONTRAST: Patient received 6.5ml gadavist of IV contrast COMPARISON: Comparison made to prior CT scan of the pelvis from August 18, 2023. FINDINGS: Vertebrae: Mild dextroscoliosis and normal lumbar lordosis. No acute fracture. Spinal cord: The conus is normal size, shape and signal characteristics, terminating at L1-L2. No abnormal enhancement. Soft tissues: Unremarkable. DISCS/SPINAL CANAL/NEURAL FORAMINA: L1-L2: Unremarkable. No significant disc disease. No stenosis. L2-L3: Unremarkable. No significant disc disease. No stenosis. L3-L4: Unremarkable. No significant disc disease. No stenosis. L4-L5: Unremarkable. No significant disc disease. No stenosis. L5-S1: Unremarkable. No significant disc disease. No stenosis. IMPRESSION: No evidence of acute lumbar spine pathology. Electronically signed by: Janae Hernandez MD 12/09/23 01:00 AM Thoracic Spine MRI 12/08/23 09:36 Exam(s): MRI T SPINE W/WO Contrast IV Amt: 6.5ml gadavist EXAM: MR Thoracic Spine Without and With Intravenous Contrast CLINICAL HISTORY: Reason for exam: R sided back pain in setting of MSSA bacteremia. TECHNIQUE: Magnetic resonance images of the thoracic spine without and with intravenous contrast in multiple planes. CONTRAST: Patient received 6.5ml gadavist of IV contrast COMPARISON: MRI T-spine 11-08-2014. FINDINGS: Vertebrae: Moderate levoscoliosis and increased thoracic kyphosis. No acute fracture. Discs/spinal canal/neural foramina: No acute findings. No significant disc disease. No spinal canal stenosis. Spinal cord: Unremarkable. Normal signal. No abnormal enhancement. Soft tissues: Right pleural effusion. IMPRESSION: No evidence of acute thoracic spine pathology. Electronically signed by: Janae Hernandez MD 12/09/23 00:[address] 12/09/23 11:11 CT chest diagnostic w con CLINICAL HISTORY: new right chest wall pain TECHNIQUE: Multidetector row helical CT of the chest was performed with intravenous contrast. Coronal and sagittal reformations were obtained. Automated dose lowering techniques and/or adjustment according to patient size were utilized for this exam. CT DOSE: 343.13 mGy.cm Comparison: Comparison is made to CT chest 12/05/2023 FINDINGS: Lungs and pleura: Atelectasis is seen in the bilateral lower lungs and there is a small right pleural effusion. Stable pulmonary nodules include the followin mm nodule in the right lower lobe superior segment (series 4 image 92) 12 mm nodular density in the right lower lobe (image 117) 2 mm nodule right lower lobe (image 141) 5 mm nodule left lower lobe (image 164) 2 mm nodule in the left lower lobe (image 165) 12 mm nodule in the right lower lobe (image 179) Heart and pericardium: Heart size is normal. No pericardial effusion. Vessels: Unremarkable. Mediastinum and harris: Unremarkable. Chest wall and lower neck: There is a 19 mm gas and fluid collection in the right chest wall, similar in size to prior exam. Abdomen: Partial visualization of a tube extending to the duodenum. Bones: Unremarkable. IMPRESSION: 1. Redemonstration of nodular densities in the lung, unchanged from prior exam. Trace right pleural effusion is unchanged. 2. Redemonstration of right chest wall gas and fluid collection. Findings remain concerning for right chest wall port site abscess. No new foci of disease are seen. ACT 112: Negative or not required by law. Electronically signed by: Tony Barnes M.D. 12/09/2023 1:14 PM Venous Doppler Study 12/11/23 09:03 US venous doppler UE BI HISTORY: 33 years-old Female need of iv access screening study for potential IV access COMPARISON: Chest CT 12/09/2023 TECHNIQUE: Multiple real-time sonographic images of the bilateral internal jugular and subclavian veins were obtained assessing grayscale appearance, color and spectral flow. FINDINGS: Unremarkable exam without thrombus identified. Normal waveforms are seen. IMPRESSION: Normal exam. ACT 112: Negative or not required by law. The above report was generated using voice recognition software. It may contain grammatical, syntax or spelling errors. Electronically signed by: Derrek Sow M.D. 12/11/2023 10:15 AM Medications Administered Home Medications Medication Instructions Recorded Confirmed Last Taken dicyclomine 10 mg capsule 20 mg PO Q6H PRN Abdominal Pain 03/07/18 12/03/23 03/05/23 08:00 pantoprazole 40 mg tablet,delayed 40 mg PO QAM 09/08/19 12/03/23 12/02/23 release (Protonix) famotidine 40 mg tablet 20 mg PO BID 11/28/19 12/03/23 12/02/23 hydrocortisone 10 mg tablet See Rx Instructions .Route .COMPLEX 02/07/20 12/03/23 12/02/23 fexofenadine 180 mg tablet 180 mg PO HS 10/09/20 12/03/23 12/02/23 fludrocortisone 0.1 mg tablet 0.1 mg PO BID 12/12/20 12/03/23 12/02/23 acetaminophen 500 mg tablet 1,000 mg PO Q6H PRN Pain 06/13/21 12/03/23 03/04/23 23:30 (Tylenol Extra Strength) multivitamin with minerals-folic 2 tab PO HS 06/13/21 12/03/23 12/02/23 acid 200 mcg chewable tablet (Multivitamin Gummies) turmeric 400 mg capsule 400 mg PO HS 06/13/21 12/03/23 12/02/23 empty container (Enema Misc Bottle) #72 ea 01/16/22 12/03/23 Unknown cholecalciferol (vitamin D3) 25 50 mcg PO QAM 04/07/22 12/03/23 12/02/23 mcg (1,000 unit) capsule (Vitamin D3) duloxetine 60 mg capsule,delayed 60 mg PO QAM 04/07/22 12/03/23 12/02/23 release methocarbamol 750 mg tablet 750 mg PO TID 04/07/22 12/03/23 12/02/23 coenzyme Q10 100 mg capsule 100 mg PO PM 07/22/22 12/03/23 12/02/23 (CoQ-10) pyridoxine (vitamin B6) 50 mg 50 mg PO QAM 07/22/22 12/03/23 12/02/23 tablet ondansetron 8 mg disintegrating 8 mg PO TID PRN Nausea 10/06/22 12/03/23 03/05/23 02:00 tablet fentanyl 75 mcg/hr transdermal 1 patch transdermal Q72H #10 ea 10/23/22 12/03/23 12/02/23 patch lorazepam 2 mg/mL injection 0.5 mg (0.25 mL) buccal QID PRN 12/04/22 12/03/23 03/05/23 08:00 solution (Ativan) Nausea #100 mL bethanechol chloride 25 mg tablet 12.5 mg (1/2 x 25 mg) PO BID PRN 12/05/22 12/03/23 03/04/23 19:00 urinary retention #20 tabs levothyroxine 50 mcg tablet 50 mcg PO QAM 03/04/23 12/03/23 12/02/23 (Synthroid) gabapentin 250 mg/5 mL oral 900 mg PO TID 03/10/23 12/03/23 12/02/23 solution oxycodone 20 mg/mL oral concentrate 20 mg PO QID PRN Pain 08/05/23 12/03/23 Unknown calcium carbonate 250 mg PO QPM 11/10/23 12/03/23 12/02/23 norethindrone (contraceptive) 0.35 0.35 mg PO QAM 11/10/23 12/03/23 12/02/23 mg tablet Active Medications Generic Name Dose Route Start Last Admin Trade Name Freq PRN Reason Stop Dose Admin Acetaminophen 1,000 mg 12/03/23 02:30 12/05/23 08:07 Acetaminophen 500 Mg Tab PO 01/02/24 02:29 1,000 mg Q6H PRN Administration Pain Bethanechol Chloride 12.5 mg 12/03/23 02:30 12/11/23 08:22 Bethanechol Chl 25 Mg Tab PO 01/02/24 02:29 12.5 mg BID PRN Administration urinary retention Calcium Carbonate 0.5 tab 12/03/23 21:00 12/10/23 21:01 Calcium Carbonate 1250mg Tab PO 01/02/24 20:59 0.5 tab QPM EMERALD Administration Dicyclomine HCl 20 mg 12/03/23 02:30 12/11/23 08:23 Dicyclomine Hcl 10 Mg Cap PO 01/02/24 02:29 20 mg Q6H PRN Administration Abdominal Pain Duloxetine HCl 60 mg 12/03/23 09:00 12/11/23 08:23 Duloxetine Hcl 60 Mg Cap PO 01/02/24 08:59 60 mg QAM EMERALD Administration Famotidine 20 mg 12/03/23 09:00 12/11/23 08:22 Famotidine 20 Mg Tab PO 01/02/24 08:59 20 mg BID EMERALD Administration Fentanyl 1 patch 12/04/23 09:00 12/10/23 09:06 Fentanyl 75 Mcg/Hr Tdsy TD 12/18/23 08:59 1 patch Q72H EMERALD Administration Fexofenadine HCl 180 mg 12/03/23 21:00 12/10/23 21:02 Fexofenadine Hcl 180 Mg Tab PO 01/02/24 20:59 180 mg HS EMERALD Administration Fludrocortisone Acetate 0.1 mg 12/03/23 09:00 12/11/23 08:22 Fludrocortisone Acetate 0.1 Mg Tab PO 01/02/24 08:59 0.1 mg BID EMERALD Administration Gabapentin 900 mg 12/03/23 09:00 12/11/23 08:21 Gabapentin 250 Mg/5 Ml 470 Ml Btl PO 01/02/24 08:59 900 mg TID EMERALD Administration Hydrocortisone 10 mg 12/03/23 14:00 12/10/23 13:44 Hydrocortisone 10 Mg Tab PO 01/02/24 13:59 10 mg DAILY@1400 EMERALD Administration Hydrocortisone 15 mg 12/03/23 09:00 12/11/23 08:24 Hydrocortisone 10 Mg Tab PO 01/02/24 08:59 15 mg QAM EMERALD Administration Hydromorphone HCl 1 mg 12/10/23 13:11 12/11/23 10:33 Hydromorphone Inj 1 Mg/Ml Syringe IV 12/23/23 14:59 1 mg Q4H PRN Administration Pain Hyoscyamine 0.125 mg 12/03/23 09:54 12/06/23 08:11 Hyoscyamine Sulfate 0.125 Mg Tab PO 01/02/24 09:53 0.125 mg Q6H PRN Administration GI Upset Cefazolin Sodium 2,000 mg in 15 mls @ 3.75 mls/min 12/03/23 07:45 12/11/23 08:21 Ancef 2000mg IV 12/17/23 07:44 3.75 mls/min Q8H EMERALD Administration Lactated Ringer's 1,000 mls @ 100 mls/hr 12/09/23 17:00 12/11/23 13:56 Lr IV 01/08/24 16:59 0 mls/hr .Q10H EMERALD Infusion Lorazepam 0.5 mg/ Syringe 0.5 mls @ 2 mls/min 12/09/23 19:44 12/11/23 09:14 IV 01/08/24 17:58 2 mls/min QID PRN Administration Anxiety/Agitation Levothyroxine Sodium 50 mcg 12/03/23 06:30 12/11/23 05:14 Levothyroxine Sodium 50 Mcg Tablet PO 01/02/24 06:29 50 mcg DAILYBB EMERALD Administration Lidocaine 1 patch 12/04/23 12:00 12/11/23 13:53 Lidocaine 5% 1 Patch TD 01/03/24 11:59 Not Given Q24H EMERALD Methocarbamol 750 mg 12/03/23 09:00 12/11/23 08:22 Methocarbamol 750 Mg Tablet PO 01/02/24 08:59 750 mg TID EMERALD Administration Miscellaneous 1 each 12/04/23 08:59 12/10/23 09:06 Fentanyl Patch Remove & Waste N/A 01/03/24 08:58 1 each Q3D@0859 EMERALD Administration Miscellaneous 1 each 12/03/23 08:00 12/11/23 08:21 Check Fentanyl Patch Placement N/A 01/02/24 07:59 1 each QS EMERALD Administration Miscellaneous 1 each 12/03/23 19:00 12/11/23 08:25 [Norethindrone 0.35mg] Patient's Own Med PO 01/02/24 18:59 1 each QAM EMERALD Administration Miscellaneous 1 each 12/05/23 00:00 12/11/23 00:52 Remove Lidoderm Patch N/A 01/04/24 00:00 Not Given DAILY@0000 EMERALD Uzair Patch - Patient 1 each 12/04/23 22:39 12/04/23 23:05 's Own Med TD 01/03/24 22:38 1 patch UD PRN Administration Pain Ondansetron HCl 4 mg 12/03/23 03:35 12/11/23 09:14 Ondansetron Inj 2 Mg/Ml 2 Ml Vial IV 01/02/24 03:34 4 mg Q4H PRN Administration Nausea Oxycodone HCl 7.5 mg 12/09/23 15:00 12/11/23 05:14 Oxycodone Hcl Soln 5 Mg/5 Ml Udc PO 12/17/23 01:00 7.5 mg Q4H PRN Administration Pain (1-10) Pantoprazole Sodium 40 mg 12/03/23 09:00 12/11/23 08:24 Pantoprazole 40 Mg Tab PO 01/02/24 08:59 40 mg QAM EMERALD Administration Pyridoxine HCl 50 mg 12/03/23 09:00 12/11/23 08:23 Pyridoxine Hcl 50 Mg Tab PO 01/02/24 08:59 50 mg QAM EMERALD Administration Vitamin D 50 mcg 12/03/23 09:00 12/11/23 08:23 Cholecalciferol 25 Mcg (1000 Units) Tab PO 01/02/24 08:59 50 mcg QAM EMERALD Administration
--- NOTE | 2023-12-11 14:32 | Pharmacy Report ---
Pharmacy Initial PN Consult Nt - Date of Service December 11, 2023 - Scope Pharmacy has been consulted on this date to manage parenteral nutrition orders and order appropriate labs. As part of the Nutrition Support Team Guidelines, pharmacy will work in conjunction with dietary when determining the patients c aloric needs. - Subjective * The patient is a 33 year old Female admitted on 12/03/23 for GRAM + BACTEREMIA. * Patient is to receive parenteral nutrition for chronic TPN. * Pertinent PMHx:MSSA bacteremia this admission. Port removed. Left IJ Norris Catheter placed today - Objective Vascular Access: * Patient currently has a central line. * Per provider, cleared to use today per vascular surgery Height & Weight (Last Documented) Height 5 ft 6 in Weight 65.6 kg Diet Order(s) 12/11/23 Lunch Diet Intake & Ouput (24hrs) 12/10/23 12/11/23 12/12/23 06:59 06:59 06:59 Intake Total 2390.000 / 2390.000 3343.333 / 3343.333 933.333 / 933.333 Output Total 5 / 5 Balance 2390.000 / 2390.000 3343.333 / 3343.333 928.333 / 928.333 Selected Laboratory Results 12/11/23 05:27 Sodium 142 Potassium 3.3 L Chloride 104 Carbon Dioxide 30 Anion Gap 8 BUN < 2 L Creatinine 0.46 L Est GFR ( Amer) > 150.0 Est GFR (Non-Af Amer) 132.6 BUN/Creatinine Ratio TNP Glucose 79 Calcium 8.8 [address] - Follow Up Nutrition Assessment Start: 12/03/23 11:57 Freq: Status: Active Protocol: Document 12/09/23 10:25 WN (Rec: 12/09/23 10:38 WN [id number]) RD - Initial Nutrition Assessment Start: 12/03/23 10:59 Freq: Status: Active Protocol: Document 12/03/23 10:59 WN (Rec: 12/03/23 11:57 WN [id number]) - Assessment & Plan Assessment: * Appreciate dietitians recommendations for macronutrients. Plan: * For Day #1 of TPN administration, the following will be ordered: * Macronutrients: * Amino Acids: 115 grams/day * Dextrose: 202 grams/day * Lipids: hold today * Micronutrients: * Sodium phosphate: 6 mMol/day * Sodium chloride: 80 mEq/day * Potassium acetate: 60 mEq/day * Magnesium sulfate: 16.24 mEq/day * Calcium gluconate: 9.3 mEq/day * Trace elements: 1 mL/day * Total volume of 1529 mL will be infused over 18 hours and will provide 1148 kcal/day * Labs will be ordered per PN protocol. * Pharmacy will follow and adjust PN orders on a daily basis. Thank you!
[2023-12-11] MEDS: HYDROmorphone INJ 1 MG/ML SYRINGE IV PRN (19:30)
[2023-12-11] MEDS: oxyCODONE HCL SOLN 5 MG/5 ML UDC PO ONE (20:09)
[2023-12-11] MEDS: [UNRECOGNIZED DRUG - OTHER] IV SCH (21:10)
[2023-12-11] MEDS: CENTRAL TPN IV SCH (21:10)
[2023-12-12 06:38] LABS: Basophils # (auto) 0.04 K/uL (0.00-0.20); Basophils % (auto) 0.4 %; Eosinophils # (auto) 0.21 K/uL (0.00-0.50); Eosinophils % (auto) 2.3 %; Hematocrit (blood only) 33.2 % (37.0-47.0); Hemoglobin 10.9 g/dl (12.0-16.0); Immature Granulocytes # (auto) 0.03 K/uL (0.01-0.20); Immature Granulocytes % (auto) 0.3 %; Lymphocytes # (auto) 1.88 K/uL (1.20-3.40); Lymphocytes % (auto) 20.8 %; Mean Corpuscular Hemoglobin 30.6 pg (25.0-34.0); Mean Corpuscular Hgb Conc 32.8 g/dL (32.0-36.0); Mean Corpuscular Volume 93.3 fL (80.0-100.0); Mean Platelet Volume 10.3 fL (9.4-12.4); Monocytes # (auto) 0.98 K/uL (0.11-0.59); Monocytes % (auto) 10.9 %; Neutrophils # (auto) 5.89 K/uL (1.40-6.50); Neutrophils % (auto) 65.3 %; Platelet Count 375 K/uL (130-400); RDW Coefficient of Variation 11.9 % (11.5-14.5); RDW Standard Deviation 41.1 fL (36.4-46.3); Red Blood Count 3.56 M/uL (4.20-5.40); White Blood Count 9.03 K/ul (4.8-10.8)
[2023-12-12 06:44] LABS: Calcium 8.4 mg/dl (8.6-10.3); Creatinine Clr Calc Pharmacy 152.6 ml/min; Est GFR (African American) 149.5 ml/min; Phosphorus 2.8 mg/dl (2.5-4.9); Potassium 3.1 mmol/L (3.5-5.1)
[2023-12-12] MEDS ORDERED: POTASSIUM PHOS 3 MMOL/1 ML INFUSION IV STA (06:50)
[2023-12-12] MEDS: POTASSIUM PHOSPHATE 6 MMOL in 0.9 % SODIUM CHLORIDE 100 ML IV ONE (07:30)
[2023-12-12] MEDS: POTASSIUM CHLORIDE / WTR 10 MEQ/100 ML PLCT IV SCH (08:49)
--- NOTE | 2023-12-12 10:22 | Hospitalist Progress Note ---
"Date of Service December 12, 2023 Assessment & Plan (1) Gram-positive bacteremia: (2) Methicillin susceptible Staphylococcus aureus infection: (3) Central line infection: (4) Iron deficiency anemia: (5) Witnessed seizure-like activity: (6) Abdominal pain, chronic, generalized: (7) Sinus tachycardia: (8) Secondary hyperparathyroidism: (9) Gastroparesis: (10) Urinary retention: (11) Hemorrhagic cystitis: (12) Endometriosis: Plan Pt is a 33 yo female with a past medical history most relevant for chronic port placement for TPN, endometriosis, chronic abdominal pain s/p PEG tube and ostomy placement, PNES, chronic migraines, iron deficiency anemia, and hx of superior m esenteric syndrome, hx adrenal insufficiency who presents to the hospital for abdominal pain and port associated infection with MSSA bacteremia. MSSA Bacteremia secondary to chronic port placement - Moderate erythema w/o expressible purulence at port site on admission with culture + for MSSA - Infectious Disease consulted, apprec recommendations; * Blood cultures 12/01 indicative of gram positive bacteremia MSSA * Repeat cultures 12/04 negative still negative at >72 hours * Repeat blood cultures 12/08 negative at 48 hours * continue cefazolin q8h - anticipate minimum 4 weeks IV abx - Port removed by gen surg 12/02 - Chest CT 12/04 R.L opacities compatible with pneumonia/septic emboli, trace R pleural effusion, right chest wall gas and fluid collection possibly abscess - Given new onset right chest wall pain, chest CT was repeated 12/08 - redemonstration of 19mm gas/fluid collection in right chest wall, concerning for port site abscess - S gen surgery evaluated patient, felt finding was more consistent with seroma, recommended application of a pressure bandage. - TTE 12/02 neg but with bacteremia and now septic emboli in lungs, MARLY ordered to more confidently r/o endocarditis - MARLY 12/09 also negative - MRI T-spine/L-spine 12/07 negative TPN Dependence, Short Gut: - IV team consulted for PICC placement 12/09 - despite adequate hydration with IV fluids, venous access not amenable to PICC placement in either arm - Vascular surgery consulted, Ted catheter placed 12/10 - TPN restarted 12/10, patient to have another day of TPN without lipids due to labs with elevated TGs, recheck TGs tomorrow. - Pharmacy managing refeeding labs, will amend TPN as appropriate. Chronic Pain Syndrome | Pseudoseizures - Continue home medications Lorazepam 0.5 mg QID PRN Oxycodone 7.5 mg Q4h PRN Fentanyl patch 75 mcg Q 72H Gabapentin 900 mg PO TID Duloxetine 60 mg PO QAM - Continue to wean additional Dilaudid for breakthrough pain - 1 --> 0.5mg IV q5h prn - If requiring additional pain medication, will obtain repeat CT chest to evaluate for progression of previously noted lesion. Also consider transfer to ICU for tx with Ketamine. - Continue antinausea treatment with Zofran and Ativan PRN Chronic Conditions - Gastroparesis: continue home medications, PEG and ostomy care inpatient, continue PPI - Iron Deficiency Anemia: continue supplementation - Secondary Hyperparathyroidism: continue home medications - Hemorrhagic cystitis: continue bethanechol PRN FEN/GI: TPN VTE ppx: deferred, ambulatory Admission and Anticipated Discharge Date Admission Date: December 03, 2023 Supervising Physician Co-Signing Physician Notes Attending Physician Supervision Note: I independently interviewed and examined the patient and verified the solorzano history and physical, reviewed labs and image studies and agree with findings and care plan noted above. Staph bacteremia - recurrent positive blood cultures and septic pulmonary emboli. Source likely port - removed by surgery. TTE and MARLY negative. MRI spine negative. -Chest CT with septic emboli and port site with persistent fluid collection - consulted surgery - likely postop seroma - no concern of infection. -12/08 cultures neg. continue cefazolin - total 4 wks since negative culture -Norris catheter placed by vascular surgery- 12/10. -Plan to d/c home on thursday after IV abx delivered at home. Acute right upper abdomen/lower chest pain - main presenting complain on admission - ? sec to septic embolic. -continue home regimen of pain meds with some titration - fentanyl 50 -->75; oxycodone total 30mgs/24hr -->45mgs/24hrs. -IV dilaudid added on admission for acute pain - will continue to wean to prep for discharge - 12/11 - decrease dilaudid dose to 0.5 mgs q5hrs. -declined U liaison consult for coaching with utilization of Mindfulness based techniques/modalities for pain control -encouraged utilizing techniques she has learned from her psychologist as outpatient. Chronic abdominal pain reports significant improvement after her most recent surgery with massive lysis of adhesions. ongoing pain control Short gut/IV nutrition dependentHickman cath placed. TPN has been resumed. Subjective Pt seen at bedside this morning, mother present at bedside, notes that she had a difficult night - was dry heaving, tachycardic due to pain, also had multiple pseudoseizures. Expresses feeling of invalidation that IV Dilaudid was held. Despite having an additional dose of PO oxycodone available, she was unable to take it immediately due to retching. Expressed understanding of her feelings while also expressing the intention of the medical team. Apart from ongoing pain, no fevers/chills. Denies SOB. Review of Systems Review of Systems: As per HPI. Physical Exam Physical Exam: General:Alert and oriented, no acute distress, HEENT: Normocephalic, moist oral mucosa, Cardio: Regular rate and rhythm, no murmur. Right anterior chest wall broadly tender to palpation, most localized to area under right clavicle. No crepitus appreciated. Resp:Lungs clear to auscultation b/l, no wheezes or rhonchi, mildly restricted lung excursion GI: Soft, bowel sounds active Skin: Warm, dry, no rashes noted Results & Data Results & Data Vital Signs (Past 12 Hours) Vital Signs Temp Pulse Resp BP Pulse Ox Pulse Ox O2 Del Method 12/12/23 07:35 Nasal Cannula 12/12/23 07:10 36.8 C 94 H 18 113/76 96 Nasal Cannula 12/12/23 03:18 36.9 C 88 14 127/86 97 Nasal Cannula 12/12/23 02:00 96 12/12/23 00:50 Nasal Cannula 12/11/23 23:25 36.6 C 119 H 14 145/99 H 96 Nasal Cannula O2 Del Method O2 Flow Rate O2 Flow Rate 12/12/23 07:35 2 12/12/23 07:10 2.0 12/12/23 03:18 2.0 12/12/23 02:00 Nasal Cannula 2 12/12/23 00:50 2 12/11/23 23:25 2.0 Resident Activity Tracking Resident Involvement: Resident Care Provided Care Provided: Adult [facility] Medicine"
[2023-12-12] MEDS: HYDROmorphone INJ 0.5 MG/0.5 ML SYR IV PRN (10:33)
[2023-12-12] MEDS: [UNRECOGNIZED DRUG - REMARK] ONE (15:03)
[2023-12-12] MEDS: CENTRAL TPN IV SCH (21:29)
[2023-12-12] MEDS: [UNRECOGNIZED DRUG - OTHER] IV SCH (21:29)
[2023-12-13 06:06] LABS: Basophils # (auto) 0.04 K/uL (0.00-0.20); Basophils % (auto) 0.5 %; Eosinophils # (auto) 0.22 K/uL (0.00-0.50); Eosinophils % (auto) 2.7 %; Hematocrit (blood only) 32.7 % (37.0-47.0); Hemoglobin 10.5 g/dl (12.0-16.0); Immature Granulocytes # (auto) 0.02 K/uL (0.01-0.20); Immature Granulocytes % (auto) 0.2 %; Lymphocytes # (auto) 1.76 K/uL (1.20-3.40); Lymphocytes % (auto) 21.8 %; Mean Corpuscular Hemoglobin 30.4 pg (25.0-34.0); Mean Corpuscular Hgb Conc 32.1 g/dL (32.0-36.0); Mean Corpuscular Volume 94.8 fL (80.0-100.0); Mean Platelet Volume 10.1 fL (9.4-12.4); Monocytes # (auto) 0.87 K/uL (0.11-0.59); Monocytes % (auto) 10.8 %; Neutrophils # (auto) 5.17 K/uL (1.40-6.50); Platelet Count 326 K/uL (130-400); RDW Coefficient of Variation 11.9 % (11.5-14.5); RDW Standard Deviation 41.3 fL (36.4-46.3); Red Blood Count 3.45 M/uL (4.20-5.40); White Blood Count 8.08 K/ul (4.8-10.8)
[2023-12-13 06:28] LABS: Anion Gap 4 (3-11); BUN Creatinine Ratio 47.6 (10-20); Blood Urea Nitrogen 20 mg/dl (6-23); Calcium 8.2 mg/dl (8.6-10.3); Carbon Dioxide 31 mmol/L (21-32); Chloride 106 mmol/L (98-107); Creatinine Clr Calc Pharmacy 181.7 ml/min; Est GFR (African American) > 150.0 ml/min; Est GFR (Non-African American) 136.6 ml/min; Glucose 131 mg/dl (70-99(Fasting)); Magnesium 2.1 mg/dl (1.7-2.4); Phosphorus 2.6 mg/dl (2.5-4.9); Potassium 3.9 mmol/L (3.5-5.1); Sodium 141 mmol/L (136-145); Triglycerides 176 mg/dl (0-150)
--- NOTE | 2023-12-13 09:17 | Hospitalist Progress Note ---
"Date of Service December 13, 2023 Assessment & Plan (1) Gram-positive bacteremia: (2) Methicillin susceptible Staphylococcus aureus infection: (3) Central line infection: (4) Iron deficiency anemia: (5) Witnessed seizure-like activity: (6) Abdominal pain, chronic, generalized: (7) Sinus tachycardia: (8) Secondary hyperparathyroidism: (9) Gastroparesis: (10) Urinary retention: (11) Hemorrhagic cystitis: (12) Endometriosis: Plan Pt is a 33 yo female with a past medical history most relevant for chronic port placement for TPN, endometriosis, chronic abdominal pain s/p PEG tube and ostomy placement, PNES, chronic migraines, iron deficiency anemia, and hx of superior m esenteric syndrome, hx adrenal insufficiency who presents to the hospital for abdominal pain and port associated infection with MSSA bacteremia. MSSA Bacteremia secondary to chronic port placement - Moderate erythema w/o expressible purulence at port site on admission with culture + for MSSA - Infectious Disease consulted, apprec recommendations; * Blood cultures 12/01 indicative of gram positive bacteremia MSSA * Repeat cultures 12/04 negative still negative at >72 hours * Repeat blood cultures 12/08 negative at 48 hours * continue cefazolin q8h - anticipate minimum 4 weeks IV abx - Port removed by gen surg 12/02 - Chest CT 12/04 R.L opacities compatible with pneumonia/septic emboli, trace R pleural effusion, right chest wall gas and fluid collection possibly abscess - Given new onset right chest wall pain, chest CT was repeated 12/08 - redemonstration of 19mm gas/fluid collection in right chest wall, concerning for port site abscess - S gen surgery evaluated patient, felt finding was more consistent with seroma, recommended application of a pressure bandage. Per ID, would still recommend repeating CT chest in 3-4 weeks to ensure resolution. - TTE 12/02 neg but with bacteremia and now septic emboli in lungs, MARLY ordered to more confidently r/o endocarditis - MARLY 12/09 also negative - MRI T-spine/L-spine 12/07 negative TPN Dependence, Short Gut: - IV team consulted for PICC placement 12/09 - despite adequate hydration with IV fluids, venous access not amenable to PICC placement in either arm - Vascular surgery consulted, Ted catheter placed 12/10 - TPN restarted 12/10, labs reassuring but patient would like to continue TPN without lipids for another day - Pharmacy managing refeeding labs, will amend TPN as appropriate. Chronic Pain Syndrome | Pseudoseizures - Continue home medications Lorazepam 0.5 mg QID PRN Oxycodone 7.5 mg Q4h PRN Fentanyl patch 75 mcg Q 72H Gabapentin 900 mg PO TID Duloxetine 60 mg PO QAM - Continue to wean additional Dilaudid for breakthrough pain - Continue 0.5mg IV q5h prn - If requiring additional pain medication, consider repeat CT chest to evaluate for progression of previously noted lesion. - Continue antinausea treatment with Zofran and Ativan PRN Chronic Conditions - Gastroparesis: continue home medications, PEG and ostomy care inpatient, continue PPI - Iron Deficiency Anemia: continue supplementation - Secondary Hyperparathyroidism: continue home medications - Hemorrhagic cystitis: continue bethanechol PRN FEN/GI: TPN VTE ppx: deferred, ambulatory Admission and Anticipated Discharge Date Admission Date: December 03, 2023 Supervising Physician Co-Signing Physician Notes Attending Physician Supervision Note: I independently interviewed and examined the patient and verified the solorzano history and physical, reviewed labs and image studies and agree with findings and care plan noted above. Staph bacteremia - recurrent positive blood cultures and septic pulmonary emboli. Source likely port - removed by surgery. TTE and MARLY negative. MRI spine negative. -Chest CT with septic emboli and port site with persistent fluid collection - consulted surgery - likely postop seroma - no concern of infection. -12/08 cultures neg. continue cefazolin - total 4 wks since negative culture -Norris catheter placed by vascular surgery- 12/10. -Plan to d/c home on thursday after IV abx delivered at home. Acute right upper abdomen/lower chest pain - main presenting complain on admission - ? sec to septic embolic. -continue home regimen of pain meds with some titration - fentanyl 50 -->75; oxycodone total 30mgs/24hr -->45mgs/24hrs. -IV dilaudid added on admission for acute pain - will continue to wean to prep for discharge - 12/11 - decrease dilaudid dose to 0.5 mgs q5hrs. -consider 2 days short course oral dose at the time of discharge. -declined U liaison consult for coaching with utilization of Mindfulness based techniques/modalities for pain control -encouraged utilizing techniques she has learned from her psychologist as outpatient. Chronic abdominal pain reports significant improvement after her most recent surgery with massive lysis of adhesions. ongoing pain control Short gut/IV nutrition dependentHickman cath placed. TPN has been resumed. Subjective Pt seen at bedside this morning, mother present at bedside, notes increased pain at same location, right chest wall into RUQ abdomen - was able to get through the night without additional orders. Witnessed pseudoseizure, which she attributes to pain, resolved with verbal support from mother. Apart from ongoing pain, no fevers/chills. Denies SOB. Review of Systems Review of Systems: As per HPI. Physical Exam Physical Exam: General:Alert and oriented, no acute distress, HEENT: Normocephalic, moist oral mucosa, Cardio: Regular rate and rhythm, no murmur. Right anterior chest wall broadly tender to palpation. Site of port removal without erythema, drainage, warmth. No crepitus appreciated. Resp:Lungs clear to auscultation b/l, no wheezes or rhonchi, mildly restricted lung excursion GI: Soft, bowel sounds active Skin: Warm, dry, no rashes noted Results & Data Results & Data Vital Signs (Past 12 Hours) Vital Signs Temp Pulse Pulse Resp BP Pulse Ox Pulse Ox 12/13/23 07:50 89 12/13/23 07:06 36.7 C 85 26 H 99/64 L 97 12/13/23 03:11 12/13/23 03:05 36.6 C 90 16 106/72 99 12/13/23 02:00 98 12/12/23 22:42 36.6 C 124 H 18 128/90 97 12/12/23 21:38 76 O2 Del Method O2 Del Method O2 Flow Rate O2 Flow Rate 12/13/23 07:50 12/13/23 07:06 Nasal Cannula 2 12/13/23 03:11 Nasal Cannula 2 12/13/23 03:05 Nasal Cannula 2.0 12/13/23 02:00 Nasal Cannula 2 12/12/23 22:42 Nasal Cannula 2.0 12/12/23 21:38 Resident Activity Tracking Resident Involvement: Resident Care Provided Care Provided: Adult [facility]"
[2023-12-13] MEDS: oxyCODONE HCL SOLN 5 MG/5 ML UDC PO ONE (09:51)
--- NOTE | 2023-12-13 14:59 | Pharmacy Report ---
Pharmacy PN Follow-up Note - Date of Service December 13, 2023 - Subjective Patient is currently on day #3 of TPN for chronic parenteral nutrition. - Objective Height & Weight (Last Documented) Height 5 ft 6 in Weight 64.4 kg Diet Order(s) 12/11/23 Lunch Diet Intake & Ouput (24hrs) 12/12/23 12/13/23 12/14/23 06:59 06:59 06:59 Intake Total 1328.333 / 2829.069 3985 / 2257 1602.067 / 1602.067 Output Total / Balance 1323.333 / 1405.908 9895 / 2257 1602.067 / 1602.067 Selected Laboratory Results 12/13/23 05:32 Sodium 141 Potassium 3.9 D Chloride 106 Carbon Dioxide 31 Anion Gap 4 BUN 20 Creatinine 0.42 L Est GFR ( Amer) > 150.0 Est GFR (Non-Af Amer) 136.6 BUN/Creatinine Ratio 47.6 H Glucose 131 H Calcium 8.2 L Phosphorus 2.6 Magnesium 2.1 Triglycerides 176 H - Assessment & Plan Assessment: * Triglycerides elevated on Day 1 at 312 mg/dL, repeat triglycerides much improved today at 176mg/dL, ok to restart lipids, however patient preferred to hold today. * Calcium downtrending, ionized calcium ordered for AM per discussion with Dr. Wright, increased calcium in TPN yesterday * Increase phosphorus in TPN due to downtrending * Required supplemental potassium chloride and potassium phosphate yesterday, increased contents in TPN, labs improved today, will continue similar potassium content in TPN today. Plan: * For Day #3 of TPN administration, the following will be ordered: * Macronutrients: * Amino Acids: 115 grams/day * Dextrose: 202 grams/day * Lipids: -- grams/day (held per patient preference) * Micronutrients: * Sodium phosphate: 9 mMol/day * Sodium chloride: 80 mEq/day * Potassium phosphate: 9 mMol/day * Potassium chloride: 40 mEq/day * Potassium acetate: 60 mEq/day * Magnesium sulfate: 16.24 mEq/day * Calcium gluconate: 13.95 mEq/day * Trace elements: 1 mL/day * Total volume of 1563 mL will be infused over 18 hours starting at 2100 and will provide 1146 kcal/day * Labs will be ordered per PN protocol. * Pharmacy will follow and adjust PN orders on a daily basis. Thank you!
[2023-12-13] MEDS: CENTRAL TPN IV SCH (21:03)
[2023-12-13] MEDS: [UNRECOGNIZED DRUG - OTHER] IV SCH (21:03)
[2023-12-14 05:54] LABS: Hemoglobin 9.9 g/dl (12.0-16.0); Mean Corpuscular Hemoglobin 30.9 pg (25.0-34.0); Mean Corpuscular Hgb Conc 31.9 g/dL (32.0-36.0); Mean Corpuscular Volume 96.9 fL (80.0-100.0); Mean Platelet Volume 10.2 fL (9.4-12.4); Platelet Count 307 K/uL (130-400); RDW Coefficient of Variation 12.1 % (11.5-14.5); RDW Standard Deviation 42.6 fL (36.4-46.3); White Blood Count 7.55 K/ul (4.8-10.8)
[2023-12-14 07:20] LABS: Anion Gap 3 (3-11); BUN Creatinine Ratio 51.3 (10-20); Blood Urea Nitrogen 20 mg/dl (6-23); Calcium 8.2 mg/dl (8.6-10.3); Carbon Dioxide 29 mmol/L (21-32); Chloride 108 mmol/L (98-107); Creatinine Clr Calc Pharmacy 195.7 ml/min; Est GFR (African American) > 150.0 ml/min; Glucose 124 mg/dl (70-99(Fasting)); Potassium 4.1 mmol/L (3.5-5.1); Sodium 140 mmol/L (136-145)
--- NOTE | 2023-12-14 12:56 | Hospitalist Progress Note ---
"Date of Service December 14, 2023 Assessment & Plan (1) Gram-positive bacteremia: (2) Methicillin susceptible Staphylococcus aureus infection: (3) Central line infection: (4) Iron deficiency anemia: (5) Witnessed seizure-like activity: (6) Abdominal pain, chronic, generalized: (7) Sinus tachycardia: (8) Secondary hyperparathyroidism: (9) Gastroparesis: (10) Urinary retention: (11) Hemorrhagic cystitis: (12) Endometriosis: Plan Pt is a 33 yo female with a past medical history most relevant for chronic port placement for TPN, endometriosis, chronic abdominal pain s/p PEG tube and ostomy placement, PNES, chronic migraines, iron deficiency anemia, and hx of superior m esenteric syndrome, hx adrenal insufficiency who presents to the hospital for abdominal pain and port associated infection with MSSA bacteremia. MSSA Bacteremia secondary to chronic port placement - Moderate erythema w/o expressible purulence at port site on admission with culture + for MSSA - Infectious Disease consulted, apprec recommendations; * Blood cultures 12/01 indicative of gram positive bacteremia MSSA * Repeat cultures 12/04 negative still negative at >72 hours * Repeat blood cultures 12/08 negative at 48 hours * continue cefazolin q8h - anticipate minimum 4 weeks IV abx - Port removed by gen surg 12/02 - Chest CT 12/04 R.L opacities compatible with pneumonia/septic emboli, trace R pleural effusion, right chest wall gas and fluid collection possibly abscess - Given new onset right chest wall pain, chest CT was repeated 12/08 - redemonstration of 19mm gas/fluid collection in right chest wall, concerning for port site abscess - S gen surgery evaluated patient, felt finding was more consistent with seroma, recommended application of a pressure bandage. Per ID, would still recommend repeating CT chest in 3-4 weeks to ensure resolution. - TTE 12/02 neg but with bacteremia and now septic emboli in lungs, MARLY ordered to more confidently r/o endocarditis - MARLY 12/09 also negative - MRI T-spine/L-spine 12/07 negative Multiple Documented ABX Allergies: - Recommend outpatient allergy/immunology evaluation for allergy testing TPN Dependence, Short Gut: - IV team consulted for PICC placement 12/09 - despite adequate hydration with IV fluids, venous access not amenable to PICC placement in either arm - Vascular surgery consulted, Ted catheter placed 12/10 - TPN restarted 12/10, labs reassuring but patient would like to continue TPN without lipids for another day - Pharmacy managing refeeding labs, will amend TPN as appropriate. Chronic Pain Syndrome | Pseudoseizures - Continue home medications Lorazepam 0.5 mg QID PRN Oxycodone 7.5 mg Q4h PRN Fentanyl patch 75 mcg Q 72H Gabapentin 900 mg PO TID Duloxetine 60 mg PO QAM - Continue to wean additional Dilaudid for breakthrough pain - Continue 0.5mg IV q5h prn - If requiring additional pain medication, consider repeat CT chest to evaluate for progression of previously noted lesion. - Continue antinausea treatment with Zofran and Ativan PRN Chronic Conditions - Gastroparesis: continue home medications, PEG and ostomy care inpatient, continue PPI - Iron Deficiency Anemia: continue supplementation - Secondary Hyperparathyroidism: continue home medications - Hemorrhagic cystitis: continue bethanechol PRN FEN/GI: TPN VTE ppx: deferred, ambulatory Admission and Anticipated Discharge Date Admission Date: December 03, 2023 Supervising Physician Co-Signing Physician Notes I personally examined the patient and verified all solorzano points of history and exam, discussed case, and agree with decision making with Dr Wright Ongoing right-sided chest pain. Vitals noted, in general she is appears somewhat uncomfortable. Breathing unlabored no accessory muscle use good effort. Skin without rashes pallor or icterus. Neuro without focal deficits. Staph bacteremia - recurrent positive blood cultures and septic pulmonary emboli. Source likely port - removed by surgery. TTE and MARLY negative. MRI spine negative. -Chest CT with septic emboli and port site with persistent fluid collection - consulted surgery - likely postop seroma - no concern of infection. -12/08 cultures neg. continue cefazolin - total 4 wks since negative culture -Norris catheter placed by vascular surgery- 12/10. - For home once IV antibiotics are at home Acute right upper abdomen/lower chest pain - pleuritic due to septic emb olirepeat imaging in a few weeks to ensure clearing. Continue multimodal pain control Chronic abdominal pain reports significant improvement after her most recent surgery with massive lysis of adhesions. ongoing pain control Short gut/IV nutrition dependentHickman cath placed. TPN has been resumed. hopefully home tomorrowanticipate antibiotics being home the Subjective Pt seen at bedside this morning, mother present at bedside, no acute overnight events noted. Apart from ongoing pain, no fevers/chills. Denies SOB. Update from case management, home delivery of abx delayed until tomorrow. Review of Systems Review of Systems: As per HPI. Physical Exam Physical Exam: General:Alert and oriented, no acute distress, HEENT: Normocephalic, moist oral mucosa, Cardio: Regular rate and rhythm, no murmur. Right anterior chest wall broadly tender to palpation. Site of port removal without erythema, drainage, warmth. No crepitus appreciated. Resp:Lungs clear to auscultation b/l, no wheezes or rhonchi, mildly restricted lung excursion GI: Soft, bowel sounds active Skin: Warm, dry, no rashes noted Results & Data Results & Data Vital Signs (Past 12 Hours) Vital Signs Temp Pulse Pulse Resp BP Pulse Ox O2 Del Method 12/14/23 11:36 36.9 C 93 H 16 136/75 96 Room Air 12/14/23 08:00 Nasal Cannula 12/14/23 08:00 83 12/14/23 08:00 36.7 C 95 H 16 109/81 98 Nasal Cannula 12/14/23 03:58 36.6 C 83 15 112/72 97 Nasal Cannula O2 Flow Rate 12/14/23 11:36 12/14/23 08:00 2 12/14/23 08:00 12/14/23 08:00 2 12/14/23 03:58 2.0 Resident Activity Tracking Resident Involvement: Resident Care Provided Care Provided: Adult Hospital Medicine"
[2023-12-14] MEDS ORDERED: ACETAMINOPHEN 1,000 MG/100 ML VIAL IV PRN (15:06)
[2023-12-14] MEDS: ACETAMINOPHEN 1,000 MG/100 ML VIAL IV STA (15:13)
[2023-12-14] MEDS: HYDROmorphone INJ 1 MG/ML SYRINGE IV ONE (15:14)
[2023-12-14] MEDS: [UNRECOGNIZED DRUG - REMARK] SCH (15:48)
--- NOTE | 2023-12-14 16:19 | Billing Data ---
Date of Service December 14, 2023 Coding Level of Care Code 66485 SUB INP/OBS CARE MIN
[2023-12-14] MEDS: HYDROmorphone INJ 0.5 MG/0.5 ML SYR IV PRN (17:24)
[2023-12-14] MEDS: [UNRECOGNIZED DRUG - OTHER] IV SCH (21:01)
[2023-12-14] MEDS: CENTRAL TPN IV SCH (21:01)
[2023-12-15 06:20] LABS: Anion Gap 5 (3-11); BUN Creatinine Ratio 46.2 (10-20); Blood Urea Nitrogen 18 mg/dl (6-23); Calcium 8.7 mg/dl (8.6-10.3); Carbon Dioxide 27 mmol/L (21-32); Chloride 106 mmol/L (98-107); Creatinine Clr Calc Pharmacy 195.7 ml/min; Est GFR (African American) > 150.0 ml/min; Glucose 133 mg/dl (70-99(Fasting)); Sodium 138 mmol/L (136-145)
--- NOTE | 2023-12-15 07:23 | Discharge Summary ---
"Date of Service December 15, 2023 Admission HPI Per Admitting Provider Pilar is a 33F with PMH of pseudoseizures, gastroparesis w/ chronic abdominal pain s/p PEG tube & ostomy placement, chronic pain syndrome (previously requiring ketamine infusion), iron deficiency anemia, chronic migraines, secondary hyperparathyroidism, hemorrhagic cystitis, and endometriosis who presents at recommendation of general surgery for gram positive bacteremia secondary to port infection. ED Course: None HPI: - Patient notes that 2 days ago she started having discomfort at her port site (R chest) - The following day she experienced yellow, purulent drainage from the port itself - She contacted her surgeon who adonis blood cultures and started her on Keflex TID - Patient had taken 2 doses of the cephalosporin when she was contacted by general surgery to notify her of positive blood cultures - She was advised to present to the ED - Patient has chronic pain at baseline, which commonly provokes pseudoseizures (witnessed during visit) - Patient denies any new chest pain, dyspnea, abdominal pain, headaches, or bowel/bladder changes - Her home regimen has been mildly ineffective at controlling her current pain, but she notes strongly that she would prefer to stay out of ICU/off Ketamine at this time - Patient denies fevers or chills - She has not experienced any rashes or skin lesions - Patient expressed a desire to keep her port if possible Admission Exam Per Admitting Provider Gen: NAD, alert, interactive, tearful HEENT: Supple, no LAD, no thyromegaly, no JVD Resp:Non-labored, no wheezing/rhonchi/rales, CTAB CV: tachycardic, regular rhythm, normal S1/S2, no M/R/G Abd: Soft, non-distended, no TTP, mild erythema at base of PEG tube (chronic), ostomy intact and draining w/ healthy pink stoma, no masses Extr: 2+ dp bilaterally, no edema Skin: No rashes, moderate erythema surrounding R chest port site, no expressible purulent fluid 0110 - 60 second pseudoseizure witnessed, responded well to verbal stimuli and conversations about dog, vitals unchanged during episode Principal Diagnosis MSSA bacteremia Discharge Exam General:Alert and oriented, no acute distress, HEENT: Normocephalic, moist oral mucosa, Cardio: Regular rate and rhythm, no murmur. Right anterior chest wall broadly tender to palpation. Site of port removal without erythema, drainage, warmth. No crepitus appreciated. Resp:Lungs clear to auscultation b/l, no wheezes or rhonchi, mildly restricted lung excursion GI: Soft, bowel sounds active Skin: Warm, dry, no rashes noted Discharge Data Allergies Allergy/AdvReac Type Severity Reaction Status Date / Time diphenhydramine Allergy Severe Anaphylaxis Verified 12/11/23 11:11 promethazine Allergy Severe hives, Verified 12/11/23 11:11 throat swelling adhesive Allergy Intermediate Redness of Verified 12/11/23 11:11 Skin amoxicillin Allergy Intermediate RASH Verified 12/11/23 11:11 azithromycin [From Zithromax] Allergy Intermediate RASH/VOMITI Verified 12/11/23 11:11 NG calcium Allergy Intermediate SEE COMMENT Verified 12/11/23 11:11 [From VIACTIV Multi-Vitamin] cefazolin Allergy Intermediate rash Verified 12/11/23 11:11 Cephalosporins Allergy Intermediate HIVES Verified 12/11/23 11:11 clavulanic acid Allergy Intermediate HIVES Verified 12/11/23 11:11 ferric carboxymaltose Allergy Intermediate Rash Verified 12/11/23 11:11 [From Injectafer] folic acid Allergy Intermediate SEE COMMENT Verified 12/11/23 11:11 [From VIACTIV Multi-Vitamin] iron [From Venofer] Allergy Intermediate Muscle Pain Verified 12/11/23 11:11 multivitamin with minerals Allergy Intermediate SEE COMMENT Verified 12/11/23 11:11 [From VIACTIV Multi-Vitamin] Penicillins Allergy Intermediate HIVES Verified 12/11/23 11:11 prochlorperazine Allergy Intermediate HIVES Verified 12/11/23 11:11 sulfamethoxazole Allergy Intermediate RASH Verified 12/11/23 11:11 sumatriptan Allergy Intermediate RASH Verified 12/11/23 11:11 trimethoprim Allergy Intermediate RASH Verified 12/11/23 11:11 metoclopramide AdvReac Severe anxiety/ Verified 12/11/23 11:11 jittery morphine AdvReac Severe Severe Verified 12/11/23 11:11 abdominal Pain, sphincter of oddi spasms erythromycin base AdvReac Intermediate GI SYMPTOMS Verified 12/11/23 11:11 citalopram [From Celexa] AdvReac Unknown CAN'T Verified 12/11/23 11:11 REMEMBER Consultations 12/03/23 00:42 ED Decision to Admit Stat 12/03/23 02:30 Consult General Surgery Routine Consult Infectious Diseases Routine 12/06/23 16:27 Consult Cardiology Routine 12/08/23 18:01 Consult Anesthesiology Routine 12/09/23 11:14 Consult Anesthesiology Routine 12/10/23 08:06 Consult General Surgery Routine 12/10/23 15:56 Consult Vascular Surgery Routine Procedures Performed Operation Date: 12/11/23 07:00 Actual Procedures p Insertion of Norris Catheter, Left Internal Jugular Approach, Ultrasound Localization of Left Internal Jugular Vein, Fluoroscopy for Positioning (Left) - Jerod Marvin MD Ordered Studies 12/05/23 08:20 CT chest diagnostic w con Routine 12/08/23 09:36 MRI Lumbar Spine [MR lumbar spine wo/w con] Urgent MRI Thoracic [MR thoracic spine wo/w con] Urgent 12/09/23 11:11 CT chest diagnostic w con Urgent 12/11/23 09:03 US venous doppler UE BI Routine 12/11/23 10:34 EV cvc insrt tunnel wo prt/medical staff specialist Routine US EV guide vascular access Routine Hospital Course (1) Gram-positive bacteremia: (2) Methicillin susceptible Staphylococcus aureus infection: (3) Central line infection: (4) Iron deficiency anemia: (5) Witnessed seizure-like activity: (6) Abdominal pain, chronic, generalized: (7) Sinus tachycardia: (8) Secondary hyperparathyroidism: (9) Gastroparesis: (10) Urinary retention: (11) Hemorrhagic cystitis: (12) Endometriosis: (13) Visceral hyperalgesia: (14) Septic pulmonary embolism: Plan Pt is a 33 yo female with a past medical history most relevant for chronic port placement for TPN, endometriosis, chronic abdominal pain s/p PEG tube and ostomy placement, PNES, chronic migraines, iron deficiency anemia, and hx of superior mesenteric syndrome, hx adrenal insufficiency who presents to the hospital for abdominal pain and port associated infection with MSSA bacteremia. MSSA Bacteremia secondary to chronic port placement - Moderate erythema w/o expressible purulence at port site on admission with culture + for MSSA - Infectious Disease consulted, apprec recommendations; * Blood cultures 12/01 indicative of gram positive bacteremia MSSA * Repeat cultures 12/04 negative negative * Repeat blood cultures 12/08 negative * continue cefazolin q8h on discharge - anticipate minimum 4 weeks IV abx total (EOT est. 12/27) - Port removed by gen surg 12/02 - Chest CT 12/04 R.L opacities compatible with pneumonia/septic emboli, trace R pleural effusion, right chest wall gas and fluid collection possibly abscess - New onset right chest wall pain -> chest CT was repeated 12/08 - redemonstration of 19mm gas/fluid collection in right chest wall, concerning for port site abscess - S gen surgery evaluated patient, felt finding was more consistent with seroma, recommended application of a pressure bandage. Per ID, would still recommend repeating CT chest in 3- 4 (~12/27) weeks to ensure resolution. - TTE 12/02 neg but with bacteremia and now septic emboli in lungs, MARLY ordered to more confidently r/o endocarditis - MARLY 12/09 also negative Multiple Documented ABX Allergies: - Recommend outpatient allergy/immunology evaluation for allergy testing TPN Dependence, Short Gut: - IV team consulted for PICC placement 12/09 - despite adequate hydration with IV fluids, venous access not amenable to PICC placement in either arm - Vascular surgery consulted, Ted catheter placed 12/10 - TPN restarted 12/10, lipids held due at patient request Chronic Pain Syndrome | Pseudoseizures - Continue home medications Lorazepam 0.5 mg QID PRN Oxycodone 7.5 mg Q4h PRN Fentanyl patch 75 mcg Q 72H Gabapentin 900 mg PO TID Duloxetine 60 mg PO QAM Chronic Conditions - Gastroparesis: continue home medications, PEG and ostomy care inpatient, continue PPI - Iron Deficiency Anemia: continue supplementation - Secondary Hyperparathyroidism: continue home medications - Hemorrhagic cystitis: continue bethanechol PRN Total Time Total Time Spent Total Time Spent (In Minutes): <30 Discharge Plan Discharge Items Patient Disposition: Home - Self-Care Reason For Visit: GRAM + BACTEREMIA Discharge Diagnosis: MSSA bacteremia - catheter associated Condition on Discharge: Good Activity: Per Instructions section Bathing Comment: you can shower. no pools or bath for 2 weeks Non-emergency contact: Primary Care Provider Call non-emergency contact if: your temperature is above 101 and your wound has increased redness Follow-up/Referrals: Mariah Addison DO [Primary Care Provider] - 12/28/23 1:25 pm (Hospital follow up scheduled December 27 at 1:25) Alexander Herrera MD [Physician] - 01/08/24 1:30 pm (Hospital follow up scheduled with Dr. Herrera on January 07 at 1:30 at the [place] office. The office requests that the patient be off of all antihistamines 10 days prior to the appointment.) Fred Sharma MD [Physician] - (needs local ID follow up) Diet: Full liquid Diet Comment: Continue home TPN Addtl Attending Provider Instructions: You were seen in the hospital for a catheter associated infection. We removed the infected port and placed a new tunnelled catheter. You grew MSSA in your blood - a type of staph that is susceptible to penicillins. Repeat blood cultures were negative. You were also found to have what could be an abscess near the site where the port was removed, but surgery felt this was more consistent with a seroma. As such, it is recommended that you have a repeat chest CT in about 3 weeks to verify that this is not progressing. We had our infectious diseases colleagues weigh in to help guide treatment duration. We did imaging to ensure there weren't any other pockets of infection hiding including a trans-esophageal ECHO to look at the valves of your heart. We will treat you with an extended course of antibiotics - cefazolin every 8 hours for at least 4 weeks. Based on the repeat CT results, it is possible that antibiotics may need to be extended. Our case management team will help set up outpatient follow up with a local infectious diseases doctor. You should receive a call in the near future to schedule this. Between ID and your primary care provider, they can help coordinate follow-up care. ID also recommended an allergy/immunology outpatient referral to clarify your allergy list so that antimicrobial selection will be less difficult in the future. Please discuss this further with your primary care provider. You have surgical glue called dermabond on your surgical site incisions. You may shower with this on. This will tend to come off within a couple of weeks. Do not pick at it. Pending Studies at Discharge: No Stand-Alone Forms: My [employer], Smoking Cessation Medications and DC Order Prescriptions: New oxycodone 5 mg/5 mL Solution 7.5 mg PO Q4H PRN (Reason: pain) Qty: 840 0RF Continued pyridoxine (vitamin B6) 50 mg tablet 50 mg PO QAM famotidine 40 mg tablet 20 mg PO BID Rx Instructions: 1/2 tablet dose hydrocortisone 10 mg tablet See Rx Instructions .ROUTE .COMPLEX Hold Instructions: Resume on 10/27/22. Please take hydrocortisone 25mg in the morning and 20mg in the afternoon until your thursday followup with endocrinology Rx Instructions: TAKE 15 MG EVERY MORNING AND 10 MG EVERY AFTERNOON dicyclomine 10 mg Capsule 20 mg PO Q6H PRN (Reason: Abdominal Pain) pantoprazole [Protonix] 40 mg tablet,delayed release (DR/EC) 40 mg PO QAM fexofenadine 180 mg Tablet 180 mg PO HS methocarbamol 750 mg Tablet 750 mg PO TID cholecalciferol (vitamin D3) [Vitamin D3] 25 mcg (1,000 unit) Capsule 50 mcg PO QAM duloxetine 60 mg capsule,delayed release(DR/EC) 60 mg PO QAM ondansetron 8 mg tablet,disintegrating 8 mg PO TID PRN (Reason: Nausea) lorazepam [Ativan] 2 mg/mL Solution 0.5 mg buccal QID PRN (Reason: Nausea) Qty: 100 0RF Rx Instructions: DIRECTED 0.5 MG (0.25 ML) bethanechol chloride 25 mg Tablet 12.5 mg PO BID PRN (Reason: urinary retention) Qty: 20 0RF levothyroxine [Synthroid] 50 mcg tablet 50 mcg PO QAM fludrocortisone 0.1 mg tablet 0.1 mg PO BID acetaminophen [Tylenol Extra Strength] 500 mg Tablet 1,000 mg PO Q6H PRN (Reason: Pain) multivit with min-folic acid [Multivitamin Gummies] 200 mcg Tablet,Chewable 2 tab PO HS turmeric 400 mg Capsule 400 mg PO HS Rx Instructions: Takces 1 cap daily coenzyme Q10 [CoQ-10] 100 mg capsule 100 mg PO PM Rx Instructions: Takes 1 tab daily (DME) Enema Bottle Bottle See Rx Instructions .Route Qty: 72 0RF Rx Instructions: As directed calcium carbonate 500 mg calcium (1,250 mg) Tablet 250 mg PO QPM norethindrone (contraceptive) 0.35 mg tablet 0.35 mg PO QAM fentanyl 75 mcg/hr patch 72 hour 1 patch transdermal Q72H Qty: 10 0RF gabapentin 250 mg/5 mL solution 900 mg PO TID 30 Days Qty: 1620 0RF Discontinued oxycodone 20 mg/mL Concentrate 20 mg PO QID PRN (Reason: Pain) Discharge Orders: Discharge Order (Routine); Ordered 12/15/23 Ordered By: Mau Wright Admission Data Admit Date/Time: 12/03/23 01:18 Attending Provider: Ramses Layne Admit Provider: Jodie Max Primary Care Provider: Mariah Addison Other Providers: Ramses Layne; Dioni Kumar; Getachew Trevino; Jessica Moraes; Cony Mujica; Sherry Odonnell; Fito Conner; Mary Altamirano; Talia Paz; John Nathan; Stanton Gilbert; Mandi Isaacs; Angi Baum; Jody Clayton; Sofía Medina; James Davila; Ibrahima Jane; Arden Lima; Victor Hugo Jackson; Katy Jackson; Candido Parker; Mariama Pearson; Jose De Jesus Hawkins; Diaz Escobar; Chrisitano Gibbons; Jose Fernandez; Francisca Lujan; Man Salcedo; Lauren Salcedo; Job Gillis; Heather Mendenhall; Jalen Chan; Rupinder Conley; Maria Luisa Crowe; Jr James; Viridiana Johnson; Uma Yap; Kelly Wilburn; Senait Vera; Bryce Vera V; Jose Lacey; Angi Mcdaniel; Chandan Estevez; Kellen Ma; Bryce Hawthorne; Vaughn Lujan; Tony Gan; Candelaria Sarabia; Margarita Tesfaye; Bryce Brady; Kedar Rodgers; Audrey Gutierrez; Kirk Burnette; Leann Panda; Janae Gutierrez; Craig Thomas; Denny Fernandez; Carmela Hughes; Myra Wong; Shelton Walters; Dustin Joy; James Stanford Jr; Susan Dickens; Elisa Jackson; Ailyn Victoria; Jr Novoa; Victor Hugo Vega; Mary Cm; Elisa Guerrero; Jose Bobby; Sam Andres; Leo Quintana; Shaka Aguilera; Venkat Batista; Selam Kay; Jacklyn Jones; Chelsey Moody; Emely Rosa; Naomie Gerardo; Jerod Marvin Other Interventions: Discharge Summary Assessment (RN) Last Done: 12/15/23 11:11 Supervising Physician Co-Signing Physician Notes I personally examined the patient and verified all solorzano points of history and exam, discussed case, and agree with decision making with Dr Wright Feeling better. Feels well enough to go home. Discussed with PCP who feels comfortable following through with treatment/follow-up CT/etc.etc. Vitals noted, in general she is awake and alert fatigued but no distress. Breathing unlabored no accessory muscle use good effort. Skin without rashes pallor or icterus. Neuro without focal deficits. Staph bacteremia - recurrent positive blood cultures and septic pulmonary emboli. Source likely port - removed by surgery. TTE and MARLY negative. MRI spine negative. -Chest CT with septic emboli and port site with persistent fluid collection - consulted surgery - likely postop seroma - no concern of infection. -12/08 cultures neg. continue cefazolin - total 4 wks since negative culture -Norris catheter placed by vascular surgery- 12/10. - For home once IV antibiotics through 01/05, longer if it takes longer for her septic emboli/pneumonia to resolve Acute right upper abdomen/lower chest pain - pleuritic due to septic embolirepeat imaging in a few weeks to ensure clearing. extend duration of antibiotics before any interventions if it seems to be slow to resolve as long as patient continues to be clinically stable. Continue multimodal pain control Chronic abdominal pain reports significant improvement after her most recent surgery with massive lysis of adhesions. ongoing pain control. Outpatient pain management follow-up to continue to explore potential for spinal cord stimulator Short gut/IV nutrition dependentHickman cath placed. TPN has been resumed. Stable for home safe/stable for home today"
[2023-12-15 09:09] LABS: Potassium 3.5 mmol/L (3.5-5.1)
--- NOTE | 2023-12-15 18:20 | Billing Data ---
Date of Service December 15, 2023 Coding Level of Care Code 47331 IN/OBS DISCH 30 MIN/LESS
== END 2023-12-15 13:22 | disposition home or self-care (01) | DRG 314 ==
LOC: ED 23:40 → SUATTDRO 12-03 01:18 → 2E 12-03 01:18

== ENCOUNTER 2024-04-06 12:51 | Inpatient (IN) ==
[2024-04-06] MEDS ORDERED: TPN/PPN CONSULT PHARMACY PRN (13:12)
[2024-04-06] MEDS: ONDANSETRON INJ 2 MG/ML 2 ML VIAL IV PRN (14:22)
[2024-04-06] MEDS: LACTATED RINGER'S 1,000 ML IV ONE (14:22)
[2024-04-06] MEDS: HYDROmorphone INJ 1 MG/ML SYRINGE IV PRN (14:22)
[2024-04-06 14:32] LABS: Basophils # (auto) 0.05 K/uL (0.00-0.20); Basophils % (auto) 0.7 %; Eosinophils # (auto) 0.13 K/uL (0.00-0.50); Eosinophils % (auto) 1.8 %; Hematocrit (blood only) 35.9 % (37.0-47.0); Hemoglobin 12.1 g/dl (12.0-16.0); Immature Granulocytes # (auto) 0.01 K/uL (0.01-0.20); Immature Granulocytes % (auto) 0.1 %; Lymphocytes # (auto) 0.97 K/uL (1.20-3.40); Lymphocytes % (auto) 13.3 %; Mean Corpuscular Hemoglobin 30.6 pg (25.0-34.0); Mean Corpuscular Hgb Conc 33.7 g/dL (32.0-36.0); Mean Corpuscular Volume 90.9 fL (80.0-100.0); Mean Platelet Volume 9.5 fL (9.4-12.4); Monocytes # (auto) 0.46 K/uL (0.11-0.59); Monocytes % (auto) 6.3 %; Neutrophils # (auto) 5.69 K/uL (1.40-6.50); Neutrophils % (auto) 77.8 %; Platelet Count 316 K/uL (130-400); RDW Coefficient of Variation 12.3 % (11.5-14.5); RDW Standard Deviation 41.2 fL (36.4-46.3); Red Blood Count 3.95 M/uL (4.20-5.40); White Blood Count 7.31 K/ul (4.8-10.8)
[2024-04-06 14:47] LABS: BUN Creatinine Ratio 10.1 (10-20); Calcium 9.2 mg/dl (8.6-10.3); Creatinine Clr Calc Pharmacy 109.6 ml/min; Potassium 3.7 mmol/L (3.5-5.1)
[2024-04-06] MEDS: LACTATED RINGER'S 1,000 ML IV SCH (16:07)
[2024-04-06] MEDS: ONDANSETRON INJ 2 MG/ML 2 ML VIAL IV STA (16:07)
[2024-04-06] MEDS: HYDROmorphone INJ 1 MG/ML SYRINGE IV STA (16:07)
[2024-04-06] MEDS: ONDANSETRON INJ 2 MG/ML 2 ML VIAL IV SCH (16:27)
[2024-04-06] MEDS: LORazepam 2 MG/1 ML VIAL IV SCH (16:39)
[2024-04-06] MEDS: ACETAMINOPHEN 500 MG TAB PO SCH (16:39)
[2024-04-06] MEDS ORDERED: HEPARIN 100 UNIT/ML 5ML FLUSH FLUSH PRN (17:28)
[2024-04-06] MEDS: DICYCLOMINE HCL 20 MG TAB PO SCH (17:32)
--- NOTE | 2024-04-06 17:41 | History & Physical Report ---
Date of Service April 06, 2024 Assessment & Plan (1) Epigastric abdominal pain: Plan: RUQ more than epigastric to clarify --ddx being motility, adhesional, SMA obstruction ----nothing appearing c/w surgical emergency - in d/w PCP, pt/mom - for now supportive care, time - high probability acute pain crisis situation will settle out with supportive care/hydration/pain/nausea control ----would hold off on surgical intervention for SMA obstruction appearance on SBFT unless sx really persistent/frequently recurrent/intractable; at the same time prior track record with adhesions raises small but real concern of requiring another lysis if symptoms don't improve --->ativan q6 alt w zofran q6 (so she gets something q3) prn nausea --->dilauded q4 scheduled (takes oxycodone q4 more or less scheduled recently at home) and q2 prn pain --->hydration often helps POTS physiology which then helps wiht pain/nausea (2) Acute dehydration: Plan: IV fluids, TPN once she's doing better (3) Severe protein-calorie malnutrition: Plan: TPN once she's doing better (4) Visceral hyperalgesia: Plan: chronic pain management, supportive care, outpt surgery and pain management follow up (5) POTS (postural orthostatic tachycardia syndrome): Plan: IV fluids, steroids (for adrenal insufficiency as well) (6) Seizure-like activity: Plan: PNES from pain Admission and Anticipated Discharge Date Admission Date: April 06, 2024 History of Present Illness Chief Complaint: abdominal pain, n/v Primary Care Provider: Mariah Addison, ~2 days of abrupt worsening of abdominal pain - R upper abdomen in area near/just superior to ostomy. along with this significant worsening in overall pain as well as nausae/vomiting. what little PO she had been able to take in now all just ends up vomited out. this is superimposed on ~3-4 months of a backwards trend in ability to take in PO/pain control - although last 2 days abrupt and significant worsening ostomy output - less but still present lots of vomiting some pseudoseizure episodes last few days - more than usual due to more pain/vomiting/etc in chronic w/u for last several months of worsening - had small bowel follow through showing findings concerning for SMA region narrowing/obstruction as well as possibly adhesional funneling near ostomy Allergies Allergy/AdvReac Type Severity Reaction Status Date / Time diphenhydramine Allergy Severe Anaphylaxis Verified 03/16/24 14:05 promethazine Allergy Severe hives, Verified 03/16/24 14:05 throat swelling adhesive Allergy Intermediate Redness of Verified 03/16/24 14:05 Skin amoxicillin Allergy Intermediate RASH Verified 03/16/24 14:05 azithromycin [From Zithromax] Allergy Intermediate RASH/VOMITI Verified 03/16/24 14:05 NG calcium Allergy Intermediate SEE COMMENT Verified 03/16/24 14:05 [From VIACTIV Multi-Vitamin] cefazolin Allergy Intermediate rash Verified 03/16/24 14:05 Cephalosporins Allergy Intermediate HIVES Verified 03/16/24 14:05 clavulanic acid Allergy Intermediate HIVES Verified 03/16/24 14:05 ferric carboxymaltose Allergy Intermediate Rash Verified 03/16/24 14:05 [From Injectafer] folic acid Allergy Intermediate SEE COMMENT Verified 03/16/24 14:05 [From VIACTIV Multi-Vitamin] iron [From Venofer] Allergy Intermediate Muscle Pain Verified 03/16/24 14:05 multivitamin with minerals Allergy Intermediate SEE COMMENT Verified 03/16/24 14:05 [From VIACTIV Multi-Vitamin] Penicillins Allergy Intermediate HIVES Verified 03/16/24 14:05 prochlorperazine Allergy Intermediate HIVES Verified 03/16/24 14:05 sulfamethoxazole Allergy Intermediate RASH Verified 03/16/24 14:05 sumatriptan Allergy Intermediate RASH Verified 03/16/24 14:05 trimethoprim Allergy Intermediate RASH Verified 03/16/24 14:05 metoclopramide AdvReac Severe anxiety/ Verified 03/16/24 14:05 jittery morphine AdvReac Severe Severe Verified 03/16/24 14:05 abdominal Pain, sphincter of oddi spasms erythromycin base AdvReac Intermediate GI SYMPTOMS Verified 03/16/24 14:05 citalopram [From Celexa] AdvReac Unknown CAN'T Verified 03/16/24 14:05 REMEMBER Home Medications Medication Instructions Recorded Confirmed Type dicyclomine 10 mg capsule 20 mg PO Q6H PRN Abdominal Pain 03/07/18 03/16/24 History pantoprazole 40 mg tablet,delayed 40 mg PO QAM 09/08/19 03/16/24 History release (Protonix) famotidine 40 mg tablet 20 mg PO BID 11/28/19 03/16/24 History hydrocortisone 10 mg tablet See Rx Instructions .Route .COMPLEX 02/07/20 03/16/24 History fexofenadine 180 mg tablet 180 mg PO HS 10/09/20 03/16/24 History fludrocortisone 0.1 mg tablet 0.1 mg PO BID 12/12/20 03/16/24 History acetaminophen 500 mg tablet 1,000 mg PO Q6H PRN Pain 06/13/21 03/16/24 History (Tylenol Extra Strength) multivitamin with minerals-folic 2 tab PO HS 06/13/21 03/16/24 History acid 200 mcg chewable tablet (Multivitamin Gummies) turmeric 400 mg capsule 400 mg PO HS 06/13/21 03/16/24 History empty container (Enema Misc Bottle) #72 ea 01/16/22 03/16/24 Rx cholecalciferol (vitamin D3) 25 50 mcg PO QAM 04/07/22 03/16/24 History mcg (1,000 unit) capsule (Vitamin D3) duloxetine 60 mg capsule,delayed 60 mg PO QAM 04/07/22 03/16/24 History release methocarbamol 750 mg tablet 750 mg PO TID 04/07/22 03/16/24 History coenzyme Q10 100 mg capsule 100 mg PO PM 07/22/22 03/16/24 History (CoQ-10) pyridoxine (vitamin B6) 50 mg 50 mg PO QAM 07/22/22 03/16/24 History tablet ondansetron 8 mg disintegrating 8 mg PO TID PRN Nausea 10/06/22 03/16/24 History tablet lorazepam 2 mg/mL injection 0.5 mg (0.25 mL) buccal QID PRN 12/04/22 03/16/24 Rx solution (Ativan) Nausea #100 mL bethanechol chloride 25 mg tablet 12.5 mg (1/2 x 25 mg) PO BID PRN 12/05/22 03/16/24 Rx urinary retention #20 tabs levothyroxine 50 mcg tablet 50 mcg PO QAM 03/04/23 03/16/24 History (Synthroid) calcium carbonate 250 mg PO QPM 11/10/23 03/16/24 History norethindrone (contraceptive) 0.35 0.35 mg PO QAM 11/10/23 03/16/24 History mg tablet fentanyl 75 mcg/hr transdermal 1 patch transdermal Q72H #10 ea 12/15/23 03/16/24 Rx patch gabapentin 250 mg/5 mL oral 900 mg (18 mL) PO TID 30 days 12/15/23 03/16/24 Rx solution #1,620 mL oxycodone 5 mg/5 mL oral solution 7.5 mg (7.5 mL) PO Q4H PRN pain 12/15/23 03/16/24 Rx #840 mL Past Med/Surg History Problem List Septic pulmonary embolism MSSA bacteremia Port-A-Cath in place Discharge planning issues DVT prophylaxis Methicillin susceptible Staphylococcus aureus infection Central line infection Pseudomonas aeruginosa infection Visceral hyperalgesia Palliative care encounter Right ankle sprain (Acute) Encounter for care related to vascular access port Iron deficiency anemia Syncope Seizure-like activity Witnessed seizure-like activity (Acute) Hypokalemia Malnutrition Transaminitis B12 deficiency Folate deficiency Intestinal motility disorder (Chronic) Candidiasis of mouth and esophagus Severe protein-calorie malnutrition Abdominal pain, chronic, generalized (Chronic) Adrenal insufficiency On total parenteral nutrition (TPN) (Chronic) Acute kidney insufficiency Tachycardia (Acute) Acute dehydration (Acute) Epigastric abdominal pain (Acute) Chronic migraine without aura Hypokalemia Hypomagnesemia Hypokalemia Enteritis (Acute) Hypophosphatemia (Acute) Jejunal intussusception Sinus tachycardia Hypotension Secondary hyperparathyroidism Hypocalcemia Diarrhea (Acute) Hypophosphatemia (Acute) Anemia Gastroparesis Sphincter of Oddi spasm Fever Hypokalemia Vomiting (Acute) Urinary retention (Acute) UTI (urinary tract infection) (Acute) resolved Post-op pain (Acute) Head injury (Acute) Concussion (Acute) Bilious vomiting (Acute) Allergic reaction caused by a drug Allergic reaction Abnormal MRI, kidney (Acute) Acute right flank pain (Acute) Right flank pain (Acute) Bilateral flank pain (Acute) Appendicitis, acute (Acute 11/07/13) Asthma (Chronic) Hemorrhagic cystitis (Acute) hx Hypotension S/P cholecystectomy 2014 Chronic migraine (Chronic) Endometriosis has had 3 surgeries for this. Last surgery 2019 Diversion colitis Medical History Endometrioma of ovary Urinary dysfunction Abdominal pain Pain disorder Generalized abdominal pain Hx of Clostridium difficile infection 5 years ago, tx. 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 carroll, [facility] Spinal cord stimulator status trial implanted 03/02/23, in dr. ramírez's office>advised to bring remote Chronic, continuous use of opioids Difficult intravenous access Intractable pain Abdominal pain Elevated lipase Transaminitis Colitis Chronic malnutrition Gastrostomy tube in place Intussusception hx PICC (peripherally inserted central catheter) in place TPN Pancreatitis hx Sphincter of Oddi dysfunction DECREASED GI MOTILITY Uses feeding tube gastroparesis and decreased GI motility can not tolerate feeding and uses TPN Epigastric abdominal pain Dehydration "kind of always dehydrated" Nausea Surgical History History of removal of Port-a-Cath (12/03/23) Port Removal(Right) - Jr Collins DO, FACS History of lysis of adhesions History of liver biopsy 2023 Hx of exploratory laparotomy History of esophagogastroduodenoscopy (EGD) Ileostomy status Hx of ileostomy Hx of colonoscopy during procedure perforated small bowel 10/27/[address] [facility], subsequent repair of duodenal area. History of bowel resection Part of duodenum removed due to necrosis; done at [facility] 2019 History of removal of Port-a-Cath 10/13/[address] Geiger, [facility], due to bacteremia/sepsis.; "inserted and removed multiple times" History of hysterectomy 09/27/19 History of appendectomy History of vascular access device 2018; implanted and removed "several" times Family History Father Hyperlipidemia Other No significant family history Social History Smoking Status: Never smoker Second Hand Exposure: No; Do You Dip or Chew Tobacco: No; Tobacco Cessation Education Requested by Patient: No Hx Alcohol Use: No Hx Substance Use: No Preferred Language: Montenegrin Communication Ability: Effective Visual Impairment: No Limitations Hearing Ability: Normal Information Security Risk Analyst Required: No Beliefs That Will Affect Care: None marital status: Single Current Living Situation: Family Current Living Situation Comment: Patient lives at home with both parents current occupational status: unemployed current occupation: completed 4-year degree at [employer] How many Children do You have: 0 Other Information That Helps Us Care for You: Yes Feels Safe at Home: Yes Diet: regular Sexual Activity Comment: not sexually active Assistive Devices: Wheelchair Assistive Devices Comment: when outside the house Review of Systems Review of Systems: All systems reviewed & are unremarkable except as noted in HPI & below Physical Exam Physical Exam: aaox3 pleasant but ill and vomits a few times during interview, laying on side predominantly, appearing in some degree of pain as well. heent nc at mmm llungs cta b/l no r/r/w good effort skin no rashes no pallor or icterus abd soft PEG site intact no erythema ostomy appears intact bag in place draining a small amount of thin yellow stool (vomitus also thin yellow) RUQ very tender without guarding/rebound/rigidity/masses Results & Data Results & Data Vital Signs (Past 12 Hours) Vital Signs Temp Pulse Resp BP Pulse Ox O2 Del Method 04/06/24 13:46 98.6 F 86 16 134/96 97 Room Air PG Care Time/CCT Total # of Minutes Spent Total Time Spent with Patient: Total time spent is greater than 50% in coordination of care (as documented) at patient's floor/unit and/or counseling patient: Coding Level of Care Code 02319 INT INP/OBS CARE 3/75MIN Diagnoses Epigastric abdominal pain R10.13 Acute dehydration E86.0 Severe protein-calorie malnutrition E43 Visceral hyperalgesia R19.8 POTS (postural orthostatic tachycardia syndrome) G90.A Seizure-like activity R56.9
[2024-04-06] MEDS: BETHANECHOL CHL 25 MG TAB PO SCH (21:48)
[2024-04-06] MEDS: FAMOTIDINE 20 MG TAB PO SCH (21:49)
[2024-04-06] MEDS: METHOCARBAMOL 500 MG TABLET PO SCH (21:50)
[2024-04-06] MEDS: FLUDROCORTISONE ACETATE 0.1 MG TAB PO SCH (21:50)
[2024-04-06] MEDS: HYDROCORTISONE SOD 50 MG in SYRINGE 0 ML IV SCH (21:51)
[2024-04-06] MEDS: FEXOFENADINE HCL 180 MG TAB PO SCH (21:52)
[2024-04-06] MEDS: HYDROmorphone INJ 1 MG/ML SYRINGE IV SCH (21:52)
[2024-04-07] MEDS: DULoxetine HCL 60 MG CAP PO SCH (08:16)
[2024-04-07] MEDS: PANTOprazole 40 MG TAB PO SCH (08:16)
[2024-04-07] MEDS: BETHANECHOL CHL 25 MG TAB PO SCH (10:04)
[2024-04-07] MEDS: GABAPENTIN 250 MG/5 ML 470 ML BTL PO SCH (10:20)
--- NOTE | 2024-04-07 10:27 | Hospitalist Progress Note ---
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 Abdominal pain, acute on chronic RUQ more than epigastric to clarify --ddx being motility, adhesional, SMA obstruction ----nothing appearing c/w surgical emergency - in d/w PCP, pt/mom - for now supportive care, time - high probability acute pain crisis situation will settle out with supportive care/hydration/pain/nausea control ----would hold off on surgical intervention for SMA obstruction appearance on SBFT unless sx really persistent/frequently recurrent/intractable; at the same time prior track record with adhesions raises small but real concern of requiring another lysis if symptoms don't improve --->ativan q6 alt w zofran q6 (so she gets something q3) prn nausea --->dilauded q4 scheduled (takes oxycodone q4 more or less scheduled recently at home) and q2 prn pain --->hydration often helps POTS physiology which then helps with pain/nausea Acute dehydration IV fluids, TPN once she's doing better, to bring home TPN and may expect some worsening of abdominal pain with restarting TPN Severe protein-calorie malnutrition TPN once she's doing better Visceral hyperalgesia chronic pain management, supportive care, outpt surgery and pain management follow up POTS (postural orthostatic tachycardia syndrome) IV fluids, steroids (for adrenal insufficiency as well) Seizure-like activity PNES from pain Dispo: pending further symptom control at this time, to stay at least today for further med management Admission and Anticipated Discharge Date Admission Date: April 06, 2024 Supervising Physician Co-Signing Physician Notes I personally examined the patient and verified all solorzano points of history and exam, discussed case, and agree with decision making with Dr Jurado pain and nausea reasonable - not better than yesterday but not worse vitals noted fatigued and moderately uncomfortable no worse than yesterday R upper abdomen still very tender but probably a little less than yesterday no guarding/rebound/rigidity acute on chronic abdominal pain/nausea/visceral hyperalgesia - imaging does raise concern on recurrence of SMA but since sometimes this can be functional would manage w supportive care / expectant management for now; could also fit with distal adhesions - but again would start w conservative care and be slow to move towards surgery. seems stable/not worse and abd exam maybe mildly better- which is good given her complexity and prior setbacks often being far more difficult to control. continue current care. follow. Subjective Today, pt states she is feeling about the same as yesterday. She is still having abdominal pain, particularly RUQ pain. She notes being very nauseated this morning as well but no vomiting yet when seen. Her mom is present with her today. Review of Systems Review of Systems: Per HPI. Physical Exam Physical Exam: General:Alert and oriented, no acute distress, but uncomfortable appearing HEENT: Normocephalic, moist oral mucosa, Cardio: Regular rate and rhythm, no murmur, Resp:Lungs clear to auscultation, no wheezes or rhonchi, GI: Soft but tender to palpation Skin: Warm, pink, dry, Results & Data Results & Data Vital Signs (Past 12 Hours) Vital Signs Temp Pulse Resp BP Pulse Ox O2 Del Method 04/07/24 07:03 37.0 C 95 H 16 112/81 96 Room Air Resident Activity Tracking Resident Involvement: Resident Care Provided Care Provided: Adult Hospital Medicine (6) Abdominal pain Abdominal location: lower abdomen, unspecified Qualified Code(s): R10.30 - Lower abdominal pain, unspecified
[2024-04-07] MEDS: PATIENT'S OWN ORAL CONTRACEPTIVE PO SCH (12:24)
--- NOTE | 2024-04-07 13:00 | Billing Data ---
Date of Service April 07, 2024 Coding Level of Care Code 93578 SUB INP/OBS CARE MIN
--- OUTSIDE RECORDS SUMMARY | 2024-04-07 15:33 | External Medical Summary | Summary of Care ---
Author Name Unknown Organization [facility] Address [address] [place] [address] Phone [phone] Care Team Providers Care Industrial Painter Name Role Phone Mariah Addison Primary Care Provider Reason for Visit * Reason Onset Date Comments Advice 03/07/2024 Encounter Details Date Type Department Care Team (Late st Contact Info) Description 03/07/2024 Telephone Nutrition & Weight Management, [place] [address] [place] [address] Jennifer Rust MD [address] [place] [address] Advice Allergies Active Allergy Reactions Criticality Noted Date Comments Amoxicillin-Pot Clavulanate 03/16/20 09 Rash Cefazolin Sodium 03/16/2009 rash Diphenhydramine Anaphylaxis High 10/13/2017 Other reaction(s): Itching IV FORM Metoclopramide High 10/27/2019 Other reaction(s): Anxiety Promethazine Hcl Hives High 12/17/2016 Throat swelled shut . Sulfa Antibiotics Rash 05/22/2011 documented as of this encounter (statuses as of 03/07/2024) Medications Medication Sig Dispensed Refills Start Date End Date Status MULTI-VITAMIN PO TABS one tablet daily Active ZYRTEC ALLERGY 10 MG PO TABSIndications:All ergic rhinitis, cause unspecified,Recurre nt sinusitis,Cough 1 TABLET DAILY as needed for allergies 30 Tab 0 10/18/2012 Active ALBUTEROL SULFATE HFA 108 (90 BASE) MCG/ACT IN AERSIndications:Int ermittent asthma with reliever use up to twice [...] Active Azelastine HCl (ASTELIN) 0.1 % nasal sprayIndications:Re current sinusitis Administer 2 Sprays into nostril 2 times a day. 3 Bottle 3 02/11/2017 Active hyoscyamine (LEVSIN) 0.125 MG SL tablet As needed 04/16/2017 Active K Phos [place]-Sod Phos Di & [place] ([id number]) 155-852-130 MG TABS Take 250 mg by mouth. 06/14/2019 Active LORAzepam (ATIVAN) 0.5 MG Tablet Take 1 Tablet by mouth every 6 hours as needed. Active Fludrocortisone Acetate 0.1 MG Oral Tablet (Florinef) Take two daily 10/27/2022 Act homar oxyCODONE HCl 5 MG/5ML Oral Solution (Roxicodone) [...] Capsule before bedtime. 30 Capsule 12/02/2023 Active documented as of this encounter (statuses as of 03/07/2024) Active Problems Problem Noted Date Diagnosed Date [...] as of this encounter (statuses as of 03/07/2024) Resolved Problems Problem Noted Date Diagnosed Date Resolved Date Allergic rhinitis, cause unspecified 10/18/2012 03/14/2014 Rhinitis due to pollen 05/22/201110/18 NO SIGNIFICANT MED HX 2012 documented as of this encounter (statuses as of 03/07/2024) Immunizations Name Administration Dates Next Due Seasonal Influenza Vac., MDV, IM, 0.5 mL (Fluzon e) 03/14/2014 Seasonal Influenza, Quadrivalent, No Preserve, I M 04/14/2015 documented as of this encounter Social History [...] s 06/08/2023 Does the household have a [facility] source of income? (Household - for ages [...] encounter Miscellaneous Notes * Telephone Encounter - Ratna Soto RN - 03/07/2024 12:02 PM EDT [facility] calling. They are taking over this patient's infusions and are confirming the ordering provider. They got the orders from the previous pharmacy. Want to confirm it is okay to continue the TPN, NSSwith potassium, NSS PRN, and IV Zofran. They will also add on their usual orders for labs and line care. Please review. documented in this encounter Plan of Treatment Health Maintenance Due Date Last Done Comments DTap/Tdap Vaccines (6 - Tdap) 01/21/2003, 08/15/1993, 1992, Additional history exists Depression Screening 2004 Hepatitis C Screening 01/21/2010 COVID-19 Vaccine (4 - 2023-2 5 season) 2024 02/27/2021, 02/27/2021, 07/11/2020, Additional history exists Influenza [...] filedocumented as of this encounter Care Teams Industrial Painter Relationship Specialty Start Date End Date Mariah Addison DO [address] [place] [address] Dr Mendoza [address] [place] [id number] PCP - General Family Medicine 03/14/14 documented as of this encounter
--- OUTSIDE RECORDS SUMMARY | 2024-04-07 15:33 | External Medical Summary | Continuity of Care Document ---
Author Name Unknown Organization [address] Address [address] [place] [address] [phone] Care Team Providers Care Telephone Triage Nurse Name Role Phone Mariah Addison Donnie Primary Care Physician [phone] [facility] [id number] Date(s): 02/12/24 - 02/12/[address] [facility] [address], [address] [place] [address] [place] [phone] Encounter Diagnosis Lateral pain of right hip(Discharge Diagnosis) - 02/12/24 Discharge Disposition: Home or Self Care Attending Physician: MD Rodgers Jesse Referring Physician: MD Rodgers Jesse Allergies, Adverse Reactions, Alerts Substance Criticality Severity Reaction Reaction Severity Status seasonal Active erythromycin GI symptoms Activ e promethazine throat swelling hives Active Phenergan hives Active amoxicillin rash Active penicillin hives Active trimethoprim rash Active cephalosporins hives Activ e sulfamethoxazole rash Act homar diphenhydrAMINE with IV only severe anxiety tachycardia Active metoclopramide jittery anxiety Active morphine abdominal pain Activ e multivitamin unknown Active prochlorperazine hives Act homar scopolamine skin irritation Ac tive sulfa drugs nausea Active Celexa nausea/vomiting Acti ve Imitrex fatigue Active Ancef Rash Active Augmentin rash Active ceFAZolin rash Active Injectafer 1 injectafer Active SUMAtriptan rash Active Compazine Unknown reaction Act homar Reglan adverse reactio n, shaking, jittery, skin crawling Active Venofer rash Active 1lowers her phos level Immunizations Given and Recorded Vaccine Date Status [...] q6h, Disp# 1 kit, Refills: 11, Pharmacy: [id number] Start Date: 10/26/23 Status: Ordered Rylee 180 mg oral tablet Start: 11/21/21 3:44:00 PM EDT, 1 tab, PO, qPM, Start Date: 11/21/21 Status: Ordered Bentyl 10 mg oral capsule Start: 02/09/23 1:26:00 PM EDT, See Instructions, Disp# 240 cap, Refills: 11, 1-2 po q6h prn vickie,Pharmacy: [id number] Start Date: 02/09/23 Status: Ordered bethanechol 25 mg oral tablet Start: 12/30/23 11:24:00 AM EDT, 0.5 tab, PO, bid, Disp# 45 tab, Refills: 1, Pharmacy: [id number] Start Date: 12/30/23 Status: Ordered calcium citrate Start: 01/13/22 11:25:00 AM EDT Start Date: 01/13/22 Status: Ordered cholecalciferol 25 mcg (1000 intl units) oral capsule Start: 12/08/22 8:49:00 AM EDT, 1 cap, PO, Daily Start Date: 12/08/22 Status: Ordered CoQ10 100 mg oral capsule Start: 11/21/21 3:46:00 PM EDT Start Date: 11/21/21 Status: Ordered Cymbalta 60 mg oral delayed release capsule Start: 04/07/23 12:59:00 PM EST, 1 cap, PO, Daily, Disp# 30 cap, Refills: 11, Pharmacy: [id number] Start Date: 04/07/23 Status: Ordered famotidine 40 mg oral tablet Start: 02/09/23 1:27:00 PM EDT, See Instructions, Disp# 90 tab, Refills: 3, TAKE 1/2 TABLET BY MOUTHTWICE A DAY, Pharmacy: [facility] Start Date: 02/09/23 Status: Ordered fentaNYL 50 mcg/hr transdermal film, extended release Start: 02/10/24 12:40:00 PM EDT, 1 patch, topical, q72h, Disp# 10 patch, Refills: 0, Pharmacy: [facility] Start Date: 02/10/24 Status: Ordered Florinef Acetate 0.1 mg oral tablet Start: 11/05/23 2:15:00 PM EDT, 1 tab, PO, bid, Disp# 180 tab, Refills: 3, Pharmacy: [facility] Start Date: 11/05/23 Status: Ordered gabapentin 250 mg/5 mL oral solution Start: 12/16/23 9:12:00 AM EDT, 9 mL, PO, tid, Disp# 810 mL, Refills: 11, Pharmacy: [facility] Start Date: 12/16/23 Status: Ordered Glucagon Emergency Kit for Low Blood Sugar 1 mg injection Start: 03/11/21 10:48:00 AM EDT, 0.5 mg =, IM, ONCE, Disp# 1 kit, Refills: 0, Pharmacy: [facility] Start Date: 03/11/21 Status: Ordered hydrocortisone Start: 08/26/22 3:24:00 PM EDT, See Instructions, 15 q am and 10 mg pm Start Date: 08/26/22 Status: Ordered hyoscyamine 0.125 mg sublingual tablet Start: 05/06/23 10:59:00 AM EST, 1 tab, PO, q4h, Disp# 180 tab, Refills: 11, PRN: constipation, Pharmacy: [facility] Start Date: 05/06/23 Status: Ordered levothyroxine 50 mcg (0.05 mg) oral tablet Start: 12/08/22 8:50:00 AM EDT, 1 tab, PO, Daily Start Date: 12/08/22 Status: Ordered LORazepam 2 mg/mL oral concentrate Start: 01/25/24 3:29:00 PM EDT, 0.5 mL, PO, qid, Disp# 100 mL, Refills: 0, prn, Note to Pharmacy: PDMP verified, Pharmacy: [id number] Start Date: 01/25/24 Status: Ordered methocarbamol 750 mg oral tablet Start: 12/30/23 11:24:00 AM EDT, 2 tab, PO, tid, Disp# 180 tab, Refills: 3, PRN: NEEDED, Pharmacy: [facility] Start Date: 12/30/23 Status: Ordered multivitamin Start: 11/21/21 3:47:00 PM EDT, 1 tab, PO, Daily Start Date: 11/21/21 Status: Ordered norethindrone 0.35 mg oral tablet Start: 11/10/23 12:18:00 PM EDT, 1 tab, PO, Daily Start Date: 11/10/23 Status: Ordered normal saline infusion Start: 05/14/17 3:13:00 PM EST, normal saline infusion, 1 liter 3days/week Start Date: 05/14/17 Status: Ordered oxyCODONE 5 mg/5 mL oral solution Start: 01/28/24 5:24:00 PM EDT, 5 mg =, PO, q4h, Disp# 840 mL, Refills: 0, PRN: as needed for pain, Pharmacy: [id number] Start Date: 01/28/24 Status: Ordered Protonix 40 mg oral delayed release tablet Start: 04/22/23 3:22:00 PM EST, 1 tab, PO, Daily, Disp# 90 tab, Refills: 3, Pharmacy: [id number] Start Date: 04/22/23 Status: Ordered pyridoxine 50 mg oral tablet Start: 12/08/22 8:48:00 AM EDT, 1 tab, PO, Daily Start Date: 12/08/22 Status: Ordered turmeric Start: 11/21/21 3:47:00 PM EDT, See Instructions, 400 mg Start Date: 11/21/21 Status: Ordered Vitamin C 500 mg oral tablet Start: 11/21/21 3:46:00 PM EDT Start Date: 11/21/21 Status: Ordered Zofran ODT 8 mg oral tablet, disintegrating Start: 09/16/22 8:26:00 AM EDT, 1 tab, PO, tid, Disp# 270 tab, Refills: 3, PRN: as needed for nausea/vomiting, Pharmacy: [facility] Start Date: 09/16/22 Status: Ordered Mental Status 02/12/24 Barriers to Learning one year None evide nt Mandatory Health Literacy Documentation Yes Health Literacy Communication Barriers N ever Primary Language Bulgarian Problem List Condition Confirmation Course Effective Dates [...] Diagnosis Diagnosis Type Effective Dates Health Status Cl inical Service Informant Lateral pain of right hip Discharge Diagnosis 02/12/24 Non-Specified Procedures Procedure Date Related Diagnosis Body Site Status Catheter Hckman 12/11/23 Completed Procedure 1 12/03/23 Completed Celiac plexus block 11/25/22 Compl eted Stoma 2 06/17/[address] of abdomen and pelvis 3 05/05/[address] of abdomen and pelvis 4 06/16/21 Completed KUB X-ray 5 03/13/21 Completed Feeding tube 6 01/2021 Completed Chest X-ray 7 12/12/20 Completed X-ray of abdomen 8 12/12/20 Comple jeffrey Procedure--XR upper GI 9 10/22/[address] of abdomen and pelvis wit h contrast 10 10/19/20 Completed Loop ileostomy 09/05/20 Completed US abdominal scan 11 02/07/20 Comp leted US scan of female genital tract 12 02/07/20 Completed Insertion of tunneled centra l venous catheter using fluoroscopic guidance 13 12/12/19 Completed Chest X-ray 14 10/11/[address] of abdomen 15 10/11/19 Complete d Port- A- Cath removal 16 10/11/19 Completed KUB X-ray 17 10/04/[address] of abdomen and pelvis 18 09/08/19 Completed X-ray of chest and abdomen 19 09/08/19 Completed MRCP - Magnetic resonance cholangiopancreatography 20 07/13/19 Comp leted Push Endoscopy 06/2019 Completed MRI - of brain w/o contrast 21 04/20/19 Completed Ultrasound scan of neck 22 12/03/18 Completed COLONOSCOPY AND BIOPSY 01/08/18 Co mpleted Ultrasound 23 10/01/17 Completed X-ray of abdomen 24 07/22/17 Compl eted Feeding tube, device 06/12/17 Comp leted Procedure, Feeding tube change [address] of abdomen and pelvis 26 05/05/17 Completed robotic operative laparoscopy 03/19/17 Completed Port Placement 12/2016 Completed HIDA scan 27 11/10/16 Completed KUB X-ray 09/01/16 Completed Ultrasound--mesenteric duplex 28 03/24/16 Completed Abdominal X-ray normal 29 03/22/16 Completed Upper GI endoscopy 30, 31 02/13/16 Completed Endoscopy,upper GI 01/08/[address] of Brain 32 10/10/15 Completed scan of the brain without iv contrast 10/10/15 Completed Gastric emptying study 33 09/26/15 Completed nuclear gastric emptying study 09/26/15 Completed Small bowel study 34 09/21/15 Comp leted Chest and Abdomen XRAY 35 08/08/15 Completed SMA surgery, Laparoscopic re lease of the ligament of Treitz, lysis of adhesions. 08/06/15 Completed Small bowel series--follow through 36 07/02/15 Completed Imaging 37, 38 06/29/15 Completed KUB X-ray 39 06/29/[address] of abdomen and pelvis 40, 41 06/28/15 Completed Imaging 42, 43 06/24/15 Completed Colonoscopy 05/25/15 Completed Colonoscopy 2016 Completed Cholecystectomy 44 04/05/15 Comple jeffrey Upper GI endoscopy 45 04/04/15 Com pleted Laparoscopy 46 02/07/15 Completed FNA - Fine needle aspiration of breast 47 06/16/14 Completed laparotomy for ENDOMET. 2014 C ompleted Appendectomy 11/10/13 Completed right breast lump excision 48 11/2011 Completed Repair 49 10/28/11 Completed Right Wrist Surgery Repair 50 2007 Completed HIDA scan 51 Completed Tonsillectomy and adenoidectomy Completed 1Right port removal. 2Ex lap, DUANE, revision of stoma 3Impression: 1. Slight improvement in the mild thickening and adjacent fat stranding at the distal stomach. 2. No evidence for bowel obstruction. 3. Trace bilateral pleural effusions. 4. A gastrojejunostomy tube appears in good position. 4impression: 1. Right lower quadrant ileostomy with no evidence for bowel loop dilatation or obstruction. However, there is mild mucosal thickening of small bowel loops which can bee seen with gastroenteritis 2 Gastrostomy tube is also in place 3. No other evidence for acute inta-abdominal pelvic abnormality 4. Additional nonacute findings as delineated above see scanned report 5No evidence for a bowel obstruction 6replaced at [facility] 7IMPRESSION: 1. No acute pulmonary process 8IMPRESSION: 1. Nonobstructed bowel gas pattern. 9Jejunal intussusceptions caused by J-tube 10Impression: A gastrojejunostomy tube is in place and there is postoperative change from double barrel ostomy in the right lower quadrant. An intussusception of small bowel is again seen in the proximal jejunum around the jejunostomy tube. This is similar to the 10/09/2020 examination. There is no bowel obstruction. A small volume of nonspecific free fluid is seen in the cul-de-sac. 11No right lower quadrant abdominal wall hernia identified 12Prior hysterectomy. No significant abnormality within the pelvis. 13[facility] 14impression: 1. no acute processes of the chest 2. nonobstructive bowel gas pattern 3. gastrojejunostomy tube again terminates within the duodenum 15impression: 1 status post hysterectomy. Mild thickening of [...] antrum, unchanged. 4. prior cholecystectomy and appendectomy 16Removal of tunneled Port-A Cath, left upper chest wall 17[facility] Impression: 1. No evidence for bowel obstruction 2. Gastrojejunostomy tube terminates in the duodenum 18impression: 1.appropiately positioned gastro e unostomy tube 2. no bowel obstruction or pneumoperitoneum 3. multiple air and fluid-filled loops of large and small bowel are suggestive of enteritis with diarrheal illness. Additionally, there is wall thickening of the distal stomach suggestive of concomitany gastritis. 4. prior appendectomy and cholecystectomy 19impression: 1. apparent ill-defined bibasilar densities are auggestive of probable summation density 2. non obstructive bowel gas pattern without pneumoperitonuem 3. gastro e unostomy tube redomemonstrated 201) Cholecystectomy. No biliary or pancreatic ductal dilation or choledocholithiiasis. 2) Trace free fluid of the upper abdomen. 3) Gastrojejunal tube redemonstrated. 21IMPRESSION; No acute intracranial abnormality. Normal study. No change from prior exam 22No cervical lymphadenopathy identified. 23RENAL US IMPRESSION: Normal renal US 24Impression: No evidence of bowel obstruction. No evidemce of free air. 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 Correlation with Ct scan prior to sugical repair might be helpful. Please note: These findings may be exaggerated on routine scans performed during the inspiratory phase. Prominent cervix. Could represent cervicitis but correlation with clinical exam and pap smear recommended. 271) CCK-stimulated hepatobiliary scan, postivie for sphincter of Oddi dysfucntion. 2) Totla sphincter of Oddi dysfunction score= 5. 28Normal study 29Nonobstructed abdominal bowel gas pattern noting moderate constipation 30no significant pathology that requires further endoscopic evaluation 31await path 32[facility] Impression: 1. No acute intracranial abnormality 33Findings are consistent with normal gastric emptying for solids 34Impression: No abnormal findings. 35No acute pulmonary process No evidence for bowel obstruction Small to moderate pneumoperitoneum. This could be related to the pt's history of recent surgery 361) There is significantly delayed transit time through [...] no fluoroscopic evidence of acitve Crohn's disease. 37Contrast throughout nondilated colon. 38[facility] 39Moderate residual contrast within the colon from the prior CT. Therefore, a small bowel folow-through was not performed at this time. 40Addendum: Study was reviewed with Dr. Velasco. Note is made of narrowing of the aortomesenteric angle and aortomesenteric distance. There also appears to be some compression of the transverse duodenum. 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 41Status post cholecystectomy No definite abnormal findings although one might question some slight small bowel bowel wall thickening-secondary to lack of distention versus mild nonspecific enteritis. Please correlate clinically Trace pelvic fluid possibly physiologic Appendix not visualized but no inflammatory changes evident in the right lower quadrant 42abomen 2 view w/pa chest RTN 43Normal study 44biliary dyskinesia 45Normal esophagus Normal stomach Normal examined duodenum No specimens collected 46skyla iud insertion 47benign simple cyst of right breast. Benign type fluid was obtained and discarded. : candice 49Graham patch repair 50RIGHT SURGERY REPAIR 51[facility] Imp[facility]: 1. CCK-stimulated hepatobiliary scan, positive for sphincter of Oddi dysfunction 2. 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 Sex Female Sex Representation Female (finding) Patient Care team information Care Team Personnel Name: MD Rubio Jonathan D Position: Physician - Family Med Member Role: Lifetime Relationship Address: [address] [place] [address] [place] Name: YULISSA Ford Tara Position: Nurse Pract - Family Med Member Role: Lifetime Relationship Address: [address] [place] [address] [place] Name: Jacob Neely Kayla Position: Pharmacist Member Role: Pharmacy - Lifetime Name: DO Fair Franklin J Position: Physician - Family Med Member Role: Lifetime Relationship Address: [address] [place] [address] [place] Name: MD Enmanuel, Man H Position: Physician - Ped Echo Member Role: Lifetime Relationship Address: [address] [place] [address] [place] [address] [place] Name: DO Addison Kristen M Position: Physician - Family Med Member Role: Primary Care Provider Address: [address] [place] [address] [place] Name: Jacob Giang Kyle Position: Pharmacist Member Role: Pharmacy - Lifetime Address: [address] [place] [address] [place] Care Team Related Persons Name: MEGHANA TALBOT Name: MEGHANA TALBOT Name: DANY TALBOT Name: DANY TALBOT
--- OUTSIDE RECORDS SUMMARY | 2024-04-07 15:33 | External Medical Summary | Continuity of Care Document ---
Author Name Unknown Organization [address] Address [address] [place] [address] [id number] Care Team Providers Care Remote Encoding Operations Supervisor Name Role Phone Mariah Addison Primary Care Physician [phone] Encounter [facility] [id number] Date(s): 03/16/24 - 03/16/[address], [address] [place] [address] [place] [phone] Encounter Diagnosis Abdominal pain(Discharge Diagnosis) - 03/16/24 S/P colectomy(Discharge Diagnosis) - 03/16/24 Sleep disorder(Discharge Diagnosis) - 03/16/24 Discharge Disposition: Home or Self Care Attending Physician: DO Addison Kristen M Referring Physician: DO Addison Kristen M Allergies, Adverse Reactions, Alerts Substance Criticality Severity [...] ceFAZolin rash Active Injectafer 1 injectafer Active Compazine Unknown reaction Act homar Reglan adverse reactio n, shaking, jittery, skin crawling Active Venofer rash Active SUMAtriptan rash Active 1lowers her phos level Assessment and Plan Extracted from: Title:Office Visit Note Author:DO Addison Kriste n M Date:03/16/24 1.Abdominal pain Chronic condition, stable Goal:Resolution Data:unique tests ordered: _ Plan: _See #2 Pt also states that it feels like intusseption 2.S/P colectomy Chronic condition, stable Goal:Resolution Data:unique tests ordered: _ Plan: _pt is describing a blockage and her out put is down and irregular consistency. She will be seen at [facility] for this on Thursday. She is to let me know or proceed to ER if gets worse 3.Sleep disorder Chronic condition, stable Goal:Resolution Data:unique tests ordered: _ Plan: _consider atarax--but benadryl allergy she will see Kaushik menendez Immunizations Given and Recorded Vaccine Date Status Refusal Reason influenza virus vaccine, inactivated 1 03/16/24 Gi genesis influenza virus vaccine, inactivated 05/06/23 Give n influenza virus vaccine, inactivated 2 03/31/22 Gi genesis influenza virus vaccine, inactivated [...] R ecorded SARS-CoV-2 (COVID-19) mRNA BNT-162b2 vax 3 02/27/21 Given SARS-CoV-2 (COVID-19) mRNA BNT-162b2 vax [...] B pediatric vaccine 92 Recorded 1Result Comment: Ina RICKS 2Result Comment: Lorena Alejandre MA 3Early/Late Reason: Early/Late Reason: Other : Order placed prior to appt. Medications acetaminophen 500 mg oral tablet Start: 12/08/22 8:49:00 AM EDT, 2 tab, PO, q6h, PRN: as needed for pain Start Date: 12/08/22 Status: Ordered Albuterol (Eqv-ProAir HFA) 90 mcg/inh inhalation aerosol Start: 10/26/23 4:15:00 PM EDT, 2 puff, inhaled, q6h, Disp# 1 kit, Refills: 11, Pharmacy: [id number] Start Date: 10/26/23 Status: Ordered Rylee 180 mg oral tablet Start: 11/21/21 3:44:00 PM EDT, 1 tab, PO, qPM, Start Date: 11/21/21 Status: Ordered Bentyl 10 mg oral capsule Start: 02/09/23 1:26:00 PM EDT, See Instructions, Disp# 240 cap, Refills: 11, 1-2 po q6h prn vickie,Pharmacy: [id number] Start Date: 02/09/23 Status: Ordered bethanechol 25 mg oral tablet Start: 12/30/23 11:24:00 AM EDT, 0.5 tab, PO, bid, Disp# 45 tab, Refills: 1, Pharmacy: [facility] Start Date: 12/30/23 [...] Daily, Disp# 30 cap, Refills: 11, Pharmacy: [facility] Start Date: 04/07/23 Status: Ordered famotidine 40 mg oral tablet Start: 02/15/24 5:39:00 PM EDT, See Instructions, Disp# 90 tab, Refills: 3, TAKE 1/2 TABLET BY MOUTHTWICE A DAY, Pharmacy: [facility] Start Date: 02/15/24 Status: Ordered fentaNYL 50 mcg/hr transdermal film, extended release Start: 03/08/24 8:29:00 AM EDT, 1 patch, topical, q72h, Disp# 10 patch, Refills: 0, Pharmacy: [facility] Start Date: 03/08/24 Status: Ordered Florinef Acetate 0.1 mg oral tablet Start: 11/05/23 2:15:00 PM EDT, 1 tab, PO, bid, Disp# 180 tab, Refills: 3, Pharmacy: [facility] Start Date: 11/05/23 Status: Ordered gabapentin 250 mg/5 mL oral solution Start: 12/16/23 9:12:00 AM EDT, 9 mL, PO, tid, Disp# 810 mL, Refills: 11, Pharmacy: [facility] Start Date: 12/16/23 Status: Ordered Glucagon Emergency Kit for Low Blood Sugar 1 mg injection Start: 03/11/21 10:48:00 AM EDT, 0.5 mg =, IM, ONCE, Disp# 1 kit, Refills: 0, Pharmacy: [facility] Start Date: 03/11/21 Status: Ordered hydrocortisone Start: 08/26/22 3:24:00 PM EDT, See Instructions, 15 q am and 10 mg pm Start Date: 08/26/22 Status: Ordered hyoscyamine 0.125 mg sublingual tablet Start: 05/06/23 10:59:00 AM EST, 1 tab, PO, q4h, Disp# 180 tab, Refills: 11, PRN: constipation, Pharmacy: [facility] Start Date: 05/06/23 Status: Ordered levothyroxine 50 mcg (0.05 mg) oral tablet Start: 12/08/22 8:50:00 AM EDT, 1 tab, PO, Daily Start Date: 12/08/22 Status: Ordered LORazepam 2 mg/mL oral concentrate Start: 03/17/24 9:53:00 AM EDT, 0.5 mL, PO, qid, Disp# 100 mL, Refills: 0, prn, Note to Pharmacy: PDMP verified, Pharmacy: [facility] Start Date: 03/17/24 Status: Ordered methocarbamol 750 mg oral tablet Start: 12/30/23 11:24:00 AM EDT, 2 tab, PO, tid, Disp# 180 tab, Refills: 3, PRN: NEEDED, Pharmacy: [facility] Start Date: 12/30/23 Status: Ordered [...] oxyCODONE 5 mg/5 mL oral solution Start: 03/16/24 12:14:00 PM EDT, 5 mg =, PO, q4h, Disp# 840 mL, Refills: 0, PRN: as needed for pain, Pharmacy: [facility] Start Date: 03/16/24 Status: Ordered Protonix 40 mg oral delayed release tablet Start: 04/22/23 3:22:00 PM EST, 1 tab, PO, Daily, Disp# 90 tab, Refills: 3, Pharmacy: [facility] Start Date: 04/22/23 Status: Ordered [...] needed for nausea/vomiting, Pharmacy: [facility] Start Date: 09/16/22 Status: Ordered Mental Status 03/16/24 Barriers to Learning one year None evide nt Mandatory Health Literacy Documentation Yes Health Literacy Communication Barriers N ever 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 Problem List Condition Confirmation Course Effective Dates [...] Confirmed Active Surgical wound present Confirmed Active 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 No acute pulmonary process 8IMPRESSION: [...] No significant abnormality within the pelvis. 13[facility] 14impression: 1. no acute processes of the [...] Port-A Cath, left upper chest wall 17[facility] Impression: 1. No evidence for bowel obstruction [...] requires further endoscopic evaluation 31await path 32[facility] Impression: 1. No acute intracranial abnormality 33Findings [...] candice 49Graham patch repair 50[facility]: 1. CCK-stimulated hepatobiliary scan, positive for sphincter of Oddi dysfunction 2. 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 She states her hip feels better afterinjection. 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 She needs her ocampo line replaced. Physical Exam Vitals & Measurements T:36.7C BP:108/68 SpO2:98% PHQ2 Data(Data Documented on:03/16/2024 12:04) Emotional health assessment NEGATIVE G: AAAOx3, NAD P: normal affect and insight, no homicidal/suicidal ideation Assessment/Plan 1.Abdominal pain Chronic condition, stable Goal:Resolution Data:unique tests ordered: _ Plan: _See #2 Pt also states that it feels like intusseption 2.S/P colectomy Chronic condition, stable Goal:Resolution Data:unique tests ordered: _ Plan: _pt is describing a blockage and her out put is down and irregular consistency. She will beseen at [facility] for this on Thursday. She is to let me know or proceed to ER if gets worse 3.Sleep disorder Chronic condition, stable Goal:Resolution Data:unique tests ordered: _ Plan: _consider atarax--but benadryl allergy she will see Kaushik soon Attestation I spent4 mintime in previsit planning including prepping note and chart review . I spent28 time in face to face interaction with patient concerning the issues that brought them in today. I spent4 min time in post visit planning including finishing note and depart process Total time spent today on patient visit36 min Problem List/Past Medical History Ongoing Abdominal pain [...] Superior mesenteric artery syndrome Surgical wound present Tendinopathy of left gluteal region Urinary disorder Vitamin D deficiency Resolved Acalculous [...] drainage Wrist injury Wrist pain Procedure/Surgical History Catheter Hckman| Service Date: 12/11/2023rocedure| Service Date: 4Celiac plexus block| Service Date: 11/25/2022Stoma| Service Date: 3CT of abdomen and pelvis| Service Date: 05/05/2022T of abdomen and pelvis| Service Date: 01/30/2022KUB X-ray| Service Date: Feeding tube| Service Date: 01/2021X-ray of abdomen| Service Date: 12/12/2020hestX-ray| Service Date: 12/12/2020rocedure--XR upper GI| Service Date: 10/22/2020T of abdomen and pelvis with contrast| Service Date: 10/19/2020oop ileostomy| Service Date: 09/05/2020US abdominal scan| Service Date: 02/07/2020US scan of female genital tract| Service Date: 02/07/2020Insertion of tunneled central venous catheter using [...] of Treitz, lysis of adhesions.| Service Date: 08/06/2015[facility] bowel series--follow through| Service Date: 07/02/2015KUB X-ray| Service Date: 06/29/2015Imaging| Service Date: 06/29/2015CT of abdomen and pelvis| Service Date: 06/28/2015Imaging| Serv ice Date: 06/24/2015Colonoscopy| Service Date: 05/25/2015Colonoscopy| Service Date: 2015Cholecystectomy| Service Date: 04/05/2015Upper GI endoscopy| Service Date: 04/04/2015Laparoscopy| Service Date: 02/07/2015FNA - Fine needle aspiration of breast| Service Date: 06/16/2014laparotomy for ENDOMET.| Service Date: 2015Appendectomy| Service Date: 11/10/2013right breast lumpexcision| Service Date: 11/2011Repair| Service Date: 10/28/2011Right Wrist Surgery Repair| Service Date: 2008Tonsillectomy and adenoidectomyHIDA scan Medications acetaminophen(acetaminophen 500 mg oral tablet), 1000 mg= 2 tab, PO, q6h, PRN albuterol(Albuterol (Eqv-ProAir HFA) 90 mcg/inh inhalation aerosol), 2 puff, inhaled, q6h, 11 refills ascorbic acid(Vitamin C 500 mg oral tablet) bethanechol(bethanechol 25 mg oral tablet), 0.5 tab, PO, bid calcium citrate cholecalciferol(cholecalciferol 25 mcg (1000 intl units) oral capsule), 25 mcg= 1 cap, PO, Daily dicyclomine(Bentyl 10 mg oral capsule), See Instructions, [...] refills gabapentin(gabapentin 250 mg/5 mL oral solution), 9 mL, PO, tid, 11 refills glucagon(Glucagon Emergency Kit for Low Blood Sugar 1 mg injection), 0.5 mg, IM, ONCE hydrocortisone, See Instructions hyoscyamine(hyoscyamine 0.125 mg sublingual tablet), 0.125 mg= 1 tab, PO, q4h, PRN, 11 refills levothyroxine(levothyroxine 50 mcg (0.05 mg) oral tablet), 50 mcg= 1 tab, PO, Daily LORazepam(LORazepam 2 mg/mL oral concentrate), 1 mg= 0.5 mL, PO, qid methocarbamol(methocarbamol 750 mg oral tablet), 2 tab, PO, tid, PRN multivitamin, 1 tab, PO, Daily norethindrone(norethindrone 0.35 mg oral tablet), 0.35 mg= 1 tab, PO, Daily ondansetron(Zofran ODT 8 [...] Status Family Member(s) Father: History is negative Immunizations Vaccine Date Status influenza virus vaccine, inactivated 05/06/2023 Given influenza virus vaccine, inactivated 03/31/2022 Given Comments : Lorena Alejandre MA pneumococcal 20-valent conjugate vaccine 01/09/2022 Recorded tetanus/diphtheria/pertuss, acel (Tdap) 01/09/2022 Recorded SARS-CoV-2 (COVID-19) mRNA BNT-162b2 vax 02/27/2021 Given Comments : Early/Late Reason: Other : Order placed prior to appt. influenza virus vaccine, inactivated 02/22/2021 Given SARS-CoV-2 (COVID-19) mRNA BNT-162b2 vax 07/11/2020 Recorded SARS-CoV-2 (COVID-19) mRNA BNT-162b2 vax 06/20/2020 Recorded influenza virus vaccine, inactivated 04/18/2020 Given influenza virus vaccine, inactivated 02/10/2019 Given influenza virus vaccine, inactivated 03/29/2018 Given influenza virus vaccine, inactivated 04/30/2017 Given influenza virus vaccine, inactivated 03/21/2014 Recorded influenza virus vaccine, inactivated 03/10/2012 Given human papillomavirus vaccine 07/18/2010 Recorded human papillomavirus vaccine 03/27/2010 Recorded human papillomavirus vaccine 12/20/2009 Recorded meningococcal conjugate vaccine 02/12/2009 Recorded hepatitis A pediatric vaccine 10/12/2007 Recorded varicella virus vaccine 03/31/2007 Recorded hepatitis A pediatric vaccine 03/31/2007 Recorded tetanus toxoids-diphtheria, Td (Adult) 09/11/2004 Recorded diphtheria/tetanus/pertuss, acel (DTaP) 01/23/1997 Recorded poliovirus vaccine, inactivated 01/23/1997 Recorded measles/mumps/rubella virus vaccine 01/23/1997 Recorded varicella virus vaccine 03/24/1995 Recorded diphtheria/tetanus/pertuss, acel (DTaP) 08/15/1993 Recorded haemophilus b conjugate (HbOC) vaccine 08/15/1993 Recorded measles/mumps/rubella virus vaccine 05/23/1993 Recorded haemophilus b conjugate (HbOC) vaccine 1992 Recorded hepatitis B pediatric vaccine 1992 Recorded diphtheria/tetanus/pertuss, acel (DTaP) 1992 Recorded haemophilus b conjugate (HbOC) vaccine 1992 Recorded diphtheria/tetanus/pertuss, acel (DTaP) 1992 Recorded haemophilus b conjugate (HbOC) vaccine 1992 Recorded hepatitis B pediatric vaccine 1992 Recorded poliovirus vaccine, inactivated 1992 Recorded poliovirus vaccine, inactivated 1992 Recorded hepatitis B pediatric vaccine 1992 Recorded Recommendations Health Maintenance Pending(in the next year) OverDue Adult Influenza Vaccine due11/15/23and every 1year Due Adult COVID-19 Vaccination due03/16/24Unknown Frequency Adult Folic Acid Supplementation due03/16/24and every 3year Adult Social Determinants of Health Screening due03/16/24Unknown Frequency Shingles Vaccine due03/16/24One-time only Due In Future Body Mass Index not due until09/25/24and every Satisfied(in the past 1 year) Satisfied Adult Influenza Vaccine on05/06/23.Satisfied by MARCOS Black, Beverly Electronic Signature on File Electronically Reviewed/Signed by: Mariah Addison DO Author Signature Dt/Tm:03/16/2024 12:45 PM Department of Family Medicine [facility] Patient Care team information Care Team Personnel Name: MD Ramiro, Praneeth Us Position: Physician - Family Med Member Role: Lifetime Relationship Address: [address] [place] [address] Name: YULISSA Ford Tara Position: Nurse Pract - Family Med Member Role: Lifetime Relationship Address: [address] [place] [address] [place] Name: Jacob Neely Kayla Position: Pharmacist Member Role: Pharmacy - Lifetime Name: DO Fair Franklin J Position: Physician - Family Med Member Role: Lifetime Relationship Address: [address] [place] [address] [place] Name: MD Singer Mark H Position: Provider - Terminated Member Role: Lifetime Relationship Address: [address] [place] [address] [place] Name: DO Addison Kristen M Position: Physician - Family Med Member Role: Primary Care Provider Address: [address] [place] [address] [place] Name: Jacob Giang Kyle Position: Pharmacist Member Role: Pharmacy - Lifetime Address: [address] [place] [address] Care Team Related Persons Name: MEGHANA TALBOT Name: MEGHANA TALBOT Name: DANY TALBOT Name: DANY TALBOT"
--- OUTSIDE RECORDS SUMMARY | 2024-04-07 15:33 | External Medical Summary | Continuity of Care Document ---
Author Name Unknown Organization [facility] [id number] Address [address] [place] [address] [id number] Care Team Providers Care Fork Repairer Name Role Phone Mariah Addison Primary Care Physician [phone] Encounter [facility] DIMITRIS [id number] Date(s): 03/14/24 - 03/14/24 [facility] [address] [facility] [address] [facility] Sports Medicine [address] [place] [address] Encounter Diagnosis Lateral pain of right hip(Discharge Diagnosis) - 03/14/24 Tendinopathy of left gluteal region(Discharge Diagnosis) - 03/14/24 Discharge Disposition: Home or Self Care Attending Physician: MD Schmidt Philip J Referring Physician: MD Rodgers Jesse Allergies, Adverse [...] Injectafer 1 injectafer Active SUMAtriptan rash Active Augmentin rash Active Compazine Unknown reaction Act homar Reglan adverse reactio n, shaking, jittery, skin crawling Active Venofer rash Active 1lowers her phos level Assessment and Plan Extracted from: Title:Orthopaedics Office Visit Note Author:Bosh a, Carlos SWANSON Date:03/14/24 1.Lateral pain of right hi p Treatment options were discussed with the patient and she would like to proceed with the ultrasound-guidedcortisone injection of thegluteus minimustendon sheath. Rationale behind the procedure, risk, and benefits were reviewed. Verbal exam was obtained and a timeout procedure was performed per [facility] protocol. The site of injection was confirmed and the patient was correct identified. I was assisted with this procedure byTalia Gutierrez LPN. With the patient in the lateral decubitus position, the lateralright hip was prepped in a sterile manner with ChloraPrep skin prep and sterile ultrasound gel was used for theprocedure. A short axis view of the lateral hip focusing on thegluteus minimustendonwas obtained. Thenusing an out of plane approach, [id number] spinal needle was advanced towards the gluteus minimus tendon sheath. After the placement was confirmed,a solution containing 2 cc of 1% lidocainewithout epinephrineand 1 cc ofDepo-Medrol 40 mg/mL was theninjected. Fluid was seen filling the desired space in thetendon sheath. The needle was then withdrawn, the lateral hip was cleaned, and a Band-Aid was applied. [facility]eval[facility] Pilar tolerated theprocedure well, postinjection instructions werereviewed. She noticed decreased pain at thelateral hipwhen getting dressed and back into herwheelchair. 2.Tendinopathy of left gluteal region I have encouragedthe patient to follow-up withphysical therapy. She will follow-up with nawaf needed. Immunizations Given and Recorded Vaccine Date Status [...] q6h, Disp# 1 kit, Refills: 11, Pharmacy: [id number] Start Date: 10/26/23 Status: Ordered Rylee 180 mg oral tablet Start: 11/21/21 3:44:00 PM EDT, 1 tab, PO, qPM, Start Date: 11/21/21 Status: Ordered Bentyl 10 mg oral capsule Start: 02/09/23 1:26:00 PM EDT, See Instructions, Disp# 240 cap, Refills: 11, 1-2 po q6h prn cramps,Pharmacy: [id number] Start Date: 02/09/23 Status: Ordered bethanechol 25 mg oral tablet Start: 12/30/23 11:24:00 AM EDT, 0.5 tab, PO, bid, Disp# 45 tab, Refills: 1, Pharmacy: [facility] Start Date: 12/30/23 Status: Ordered [...] Daily, Disp# 30 cap, Refills: 11, Pharmacy: [facility] Start Date: 04/07/23 Status: Ordered famotidine 40 mg oral tablet Start: 02/15/24 5:39:00 PM EDT, See Instructions, Disp# 90 tab, Refills: 3, TAKE 1/2 TABLET BY MOUTHTWICE A DAY, Pharmacy: [facility] Start Date: 02/15/24 Status: Ordered fentaNYL 50 mcg/hr transdermal film, extended release Start: 03/08/24 8:29:00 AM EDT, 1 patch, topical, q72h, Disp# 10 patch, Refills: 0, Pharmacy: [facility] Start Date: 03/08/24 Status: Ordered Florinef Acetate 0.1 mg oral tablet Start: 11/05/23 2:15:00 PM EDT, 1 tab, PO, bid, Disp# 180 tab, Refills: 3, Pharmacy: [facility] Start Date: 11/05/23 Status: Ordered gabapentin 250 mg/5 mL oral solution Start: 12/16/23 9:12:00 AM EDT, 9 mL, PO, tid, Disp# 810 mL, Refills: 11, Pharmacy: [facility] Start Date: 12/16/23 Status: Ordered Glucagon Emergency Kit for Low Blood Sugar 1 mg injection Start: 03/11/21 10:48:00 AM EDT, 0.5 mg =, IM, ONCE, Disp# 1 kit, Refills: 0, Pharmacy: [facility] Start Date: 03/11/21 Status: Ordered hydrocortisone Start: 08/26/22 3:24:00 PM EDT, See Instructions, 15 q am and 10 mg pm Start Date: 08/26/22 Status: Ordered hyoscyamine 0.125 mg sublingual tablet Start: 05/06/23 10:59:00 AM EST, 1 tab, PO, q4h, Disp# 180 tab, Refills: 11, PRN: constipation, Pharmacy: [facility] Start Date: 05/06/23 Status: Ordered levothyroxine 50 mcg (0.05 mg) oral tablet Start: 12/08/22 8:50:00 AM EDT, 1 tab, PO, Daily Start Date: 12/08/22 Status: Ordered LORazepam 2 mg/mL oral concentrate Start: 02/22/24 2:02:00 PM EDT, 0.5 mL, PO, qid, Disp# 100 mL, Refills: 0, prn, Note to Pharmacy: PDMP verified, Pharmacy: [facility] Start Date: 02/22/24 Status: Ordered methocarbamol 750 mg oral tablet Start: 12/30/23 11:24:00 AM EDT, 2 tab, PO, tid, Disp# 180 tab, Refills: 3, PRN: NEEDED, Pharmacy: [facility] Start Date: 12/30/23 [...] 0, PRN: as needed for pain, Pharmacy: [facility] Start Date: 03/16/24 Status: Ordered Protonix 40 mg oral delayed release tablet Start: 04/22/23 3:22:00 PM EST, 1 tab, PO, Daily, Disp# 90 tab, Refills: 3, Pharmacy: [facility] Start Date: 04/22/23 [...] 3, PRN: as needed for nausea/vomiting, Pharmacy: [facility] Start Date: 09/16/22 Status: Ordered Mental Status 03/14/24 Barriers to Learning one year None evide nt Mandatory Health Literacy Documentation Yes Health Literacy Communication Barriers N ever Primary Language Romanian Problem List Condition Confirmation Course Effective Dates [...] Effective Dates Health Status Clinical Service Informant Lateral pain of right hip Discharge Diagnosis 03/14/24 Tendinopathy of left gluteal region Discharge Diagnosis 03/14/24 Procedures Procedure Date Related Diagnosis Body Site [...] 43 06/24/15 Completed Colonoscopy 05/25/15 Completed Colonoscopy 2015 Completed Cholecystectomy 44 04/05/15 Comple jeffrey Upper [...] evidence for a bowel obstruction 6[facility] at [facility] 7IMPRESSION: 1. No acute pulmonary process 8IMPRESSION: [...] No significant abnormality within the pelvis. 13[facility] 14impression: 1. no acute processes of [...] Port-A Cath, left upper chest wall 17[facility] Impression: 1. No evidence for bowel [...] requires further endoscopic evaluation 31await path 32[facility] Impression: 1. No acute intracranial abnormality [...] candice 49Graham patch repair 50[facility] Imp[facility]: 1. CCK-stimulated hepatobiliary scan, positive for sphincter of Oddi dysfunction 2. Total sphincter of Oddi dysfunction = 5 3 Social History Social History Type Response Smoking Status Never smoked cigaret rich Sex Female Sex Representation Female (finding) Ortho Outpt Note * MD Brayan, Carlos Cline: PERFORM Event Display: Ortho Outpt Note Authored Date: [id number] Primary Care Provider DO Addison Kristen M Referring Provider MD Vishal, Yogi Chief Complaint US and possible injection of right hip/ IT band History of Present Illness Pilar is a [id number]he for ultrasound evaluation and possible cortisone injection of the rightlateral hipas discussed at herprevious office visit with me in October,and with at the end ofSept. She is scheduled start physical therapy for lateral hip pain and would like to get the injectionand before starting PT. Physical Exam General:Appears well. Using awheelchair. Accompanied by her mother. She is able to get tothe exam table with minimalassistance. Right hip:Pain-free range of motion in internal and external rotation. She is tender over thelateralhip. There is no swelling or bruising of this areanoted. Diagnostic Results A limited musculoskeletal ultrasound evaluation of the rightlateral hip is performed. The greater trochanter and trochantericbursa are localized. There is no significant bursal effusion. The gluteus mediustendon is unremarkable. Partial-thickness tearing andtendinopathy of thegluteus minimus tendon isnoted and this is consistent with her area of greatesttenderness. Assessment/Plan 1.Lateral pain of right hip Treatment options were discussed with the patient and she would like to proceed with the ultrasound-guidedcortisone injection of thegluteus minimustendon sheath. Rationale behind the procedure, risk, and benefits were reviewed. Verbal exam was obtained and a timeout procedure was performed per [facility] protocol. The site of injection was confirmed and the patient was correct identified. I was assisted with this procedure byTalia Gutierrez LPN. With the patient in the lateral decubitus position, the lateralright hip was prepped in a sterilemanner with ChloraPrep skin prep and sterile ultrasound gel was used for theprocedure. A short axis view of the lateral hip focusing on thegluteus minimustendonwas obtained. Thenusing an out of plane approach, [id number] spinal needle was advanced towards the gluteus minimus tendon sheath. After the placement was confirmed,a solution containing 2 cc of 1% lidocainewithout epinephrineand 1 cc ofDepo-Medrol 40 mg/mL was theninjected. Fluid was seen filling the desiredspace in thetendon sheath. The needle was then withdrawn, the lateral hip was cleaned, and a Band-Aid was applied. Images of theevaluation and procedure aresaved in [facility]. Pilar tolerated theprocedure well, postinjection instructions werereviewed. She noticed decreased pain at thelateral hipwhen getting dressed and back into herwheelchair. 2.Tendinopathy of left gluteal region I have encouragedthe patient to follow-up withphysical therapy. She will follow-up with nawaf needed. Problem List/Past Medical History Ongoing Abdominal pain [...] Catheter Hckman| Service Date: 12/11/2023rocedure| Service Date: 12/03/2023eliac plexus block| Service Date: 11/25/2022Stoma| Service Date: 06/17/2022T of abdomen and pelvis| Service Date: 05/05/2022T of abdomen and pelvis| Service Date: 06/16/2021KUB X-ray| Service Date: Feeding tube| Service Date: 01/2021X-ray of abdomen| Service Date: 12/12/2020hestX-ray| Service Date: 12/12/2020rocedure--XR upper GI| Service Date: 10/22/2020T of abdomen and pelvis with contrast| Service Date: 06/04/2021Loop ileostomy| Service Date: 09/05/2020US abdominal scan| Service [...] of Treitz, lysis of adhesions.| Service Date: 08/06/2015Small bowel series--follow through| Service Date: 07/02/2015KUB X-ray| Service Date: 06/29/2015Imaging| Service Date: 06/29/2015CT of abdomen and pelvis| Service Date: 06/28/2015Imaging| Serv ice Date: 06/24/2015Colonoscopy| Service Date: 05/25/2015Colonoscopy| Service Date: 2015Cholecystectomy| Service Date: 04/05/2015Upper GI endoscopy| Service Date: 04/04/2015Laparoscopy| Service Date: 02/07/2015FNA - Fine needle aspiration of breast| Service Date: 06/16/2014laparotomy for ENDOMET.| Service Date: ppendectomy| Service Date: 11/10/2013right breast lumpexcision| Service Date: [...] oral tablet), 2 tab, PO, tid, PRN methylPREDNISolone(DEPO-Medrol 40 mg/mL injectable suspension), 40 mg= 1 mL, intra-articular, ONCE multivitamin, 1 tab, PO, Daily norethindrone(norethindrone 0.35 [...] due11/15/23and every 1year Due Adult COVID-19 Vaccination due03/15/24Unknown Frequency Adult Folic Acid Supplementation due03/15/24and every 3year Adult Social Determinants of Health Screening due03/15/24Unknown Frequency Shingles Vaccine due03/15/24One-time only Due In Future Body Mass Index not due until09/25/24and every 366day Satisfied(in the past 1 year) Satisfied Adult Influenza Vaccine on05/06/23.Satisfied by MARCOS Black Gillian Electronic Signature on File CC: Mariah Addison DO [address] [place] [id number] Electronically Reviewed/Signed by: Carlos Schmidt MD Author Signature Dt/Tm:03/15/2024 02:25 PM Division of Sports Medicine PJB Patient Care team information Care Team Personnel Name: MD Ramiro, Praneeth Us Position: Physician - Family Med Member Role: Lifetime Relationship Address: [address] [place] [address] [place] Name: YULISSA Ford Tara Position: Nurse Pract - Family Med Member Role: Lifetime Relationship Address: [address] [place] [address] [place] Name: Jacob Neely Kayla Position: Pharmacist Member Role: Pharmacy - Lifetime Name: DO Fair Franklin J Position: Physician - Family Med Member Role: Lifetime Relationship Address: [address] [facility] [address] [place] [address] Name: MD Singer Mark H Position: Provider - Terminated Member Role: Lifetime Relationship Address: [address] [facility] [place] [address] [place] [address] [place] Name: DO Addison Kristen M Position: Physician - Family Med Member Role: Primary Care Provider Address: [address] [facility] [address] [place] [address] [place] Name: Jacob Giang Kyle Position: Pharmacist Member Role: Pharmacy - Lifetime Address: [address] [place] [address] Care Team Related Persons Name: MEGHANA TALBOT Name: MEGHANA TALBOT Name: DANY TALBOT Name: DANY TALBOT"
--- OUTSIDE RECORDS SUMMARY | 2024-04-07 15:33 | External Medical Summary | Continuity of Care Document ---
Author Name Unknown Organization [address] Address [address] [place], [place] [address] [place], [place] [id number] Care Team Providers Care Anhydrous Ammonia Production Supervisor Name Role Phone Mariah Addison Primary Care Physician [phone] Encounter [facility] [id number] Date(s): 02/10/24 - 02/10/[address], [address] [phone] Encounter Diagnosis Abdominal pain(Discharge Diagnosis) - 02/10/[address](Discharge Diagnosis) - 02/10/24 Malnutrition(Discharge Diagnosis) - 02/10/24 Fistula(Discharge Diagnosis) - 02/10/24 Discharge Disposition: Home or Self Care Attending Physician: DO Addison Kristen M Referring Physician: DO Addison Kristen M Allergies, Adverse Reactions, Alerts Substance Criticality Severity Reaction Reaction Severity Status seasonal Active erythromycin GI symptoms Activ e promethazine throat swelling hives Active Phenergan hives Active amoxicillin rash Active penicillin hives Active trimethoprim rash Active cephalosporins hives Activ e sulfamethoxazole rash Act alba diphenhydrAMINE with IV only severe anxiety tachycardia Active metoclopramide jittery anxiety Active morphine abdominal pain Activ e multivitamin unknown Active prochlorperazine hives Act alba scopolamine skin irritation Ac tive sulfa drugs nausea Active Celexa nausea/vomiting Acti ve Imitrex fatigue Active Ancef Rash Active ceFAZolin rash Active Injectafer 1 injectafer Active Augmentin rash Active Compazine Unknown reaction Act alba Reglan adverse reactio n, shaking, jittery, skin crawling Active Venofer rash Active SUMAtriptan rash Active 1lowers her phos level Assessment and Plan Extracted from: Title:Office Visit Note Author:DO Addison Kriste n M Date:02/10/24 1.Abdominal pain Chronic condition, stable Goal:Resolution Data:unique tests ordered: _ Plan: _pt with fistula which is very concerning for mass effect of fluid collection 2.Ileostomy in place Chronic condition, stable Goal:Resolution Data:unique tests ordered: _ Plan: _decreased output see #1 3.Malnutrition Chronic condition, stable Goal:Resolution Data:unique tests ordered: _ Plan: _cont TPN 4.Fistula Chronic condition, stable Goal:Resolution Data:unique tests ordered: _ Plan: _pt is going to notify her surgeon of the fistula and the increasing discomfort Immunizations Given and Recorded Vaccine Date Status [...] q6h, Disp# 1 kit, Refills: 11, Pharmacy: [id number] Start Date: 10/26/23 Status: Ordered Rylee 180 mg oral tablet Start: 11/21/21 3:44:00 PM EDT, 1 tab, PO, qPM, Start Date: 11/21/21 Status: Ordered Bentyl 10 mg oral capsule Start: 02/09/23 1:26:00 PM EDT, See Instructions, Disp# 240 cap, Refills: 11, 1-2 po q6h prn vickie,Pharmacy: [id number] Start Date: 02/09/23 Status: Ordered bethanechol 25 mg oral tablet Start: 12/30/23 11:24:00 AM EDT, 0.5 tab, PO, bid, Disp# 45 tab, Refills: 1, Pharmacy: [facility] Start Date: 12/30/23 Status: Ordered [...] Daily, Disp# 30 cap, Refills: 11, Pharmacy: [id number] Start Date: 04/07/23 Status: Ordered famotidine 40 mg oral tablet Start: 02/09/23 1:27:00 PM EDT, See Instructions, Disp# 90 tab, Refills: 3, TAKE 1/2 TABLET BY MOUTHTWICE A DAY, Pharmacy: [id number] Start Date: 02/09/23 Status: Ordered fentaNYL 50 mcg/hr transdermal film, extended release Start: 02/10/24 12:40:00 PM EDT, 1 patch, topical, q72h, Disp# 10 patch, Refills: 0, Pharmacy: [facility] Start Date: 02/10/24 Status: Ordered Florinef Acetate 0.1 mg oral tablet Start: 11/05/23 2:15:00 PM EDT, 1 tab, PO, bid, Disp# 180 tab, Refills: 3, Pharmacy: [facility] Start Date: 11/05/23 Status: Ordered gabapentin 250 mg/5 mL oral solution Start: 12/16/23 9:12:00 AM EDT, 9 mL, PO, tid, Disp# 810 mL, Refills: 11, Pharmacy: [facility] Start Date: 12/16/23 Status: Ordered Glucagon Emergency Kit for Low Blood Sugar 1 mg injection Start: 03/11/21 10:48:00 AM EDT, 0.5 mg =, IM, ONCE, Disp# 1 kit, Refills: 0, Pharmacy: [facility] Start Date: 03/11/21 Status: Ordered hydrocortisone Start: 08/26/22 3:24:00 PM EDT, See Instructions, 15 q am and 10 mg pm Start Date: 08/26/22 Status: Ordered hyoscyamine 0.125 mg sublingual tablet Start: 05/06/23 10:59:00 AM EST, 1 tab, PO, q4h, Disp# 180 tab, Refills: 11, PRN: constipation, Pharmacy: [id number] Start Date: 05/06/23 Status: Ordered levothyroxine 50 mcg (0.05 mg) oral tablet Start: 12/08/22 8:50:00 AM EDT, 1 tab, PO, Daily Start Date: 12/08/22 Status: Ordered LORazepam 2 mg/mL oral concentrate Start: 01/25/24 3:29:00 PM EDT, 0.5 mL, PO, qid, Disp# 100 mL, Refills: 0, prn, Note to Pharmacy: PDMP verified, Pharmacy: [facility] Start Date: 01/25/24 Status: Ordered methocarbamol 750 mg oral tablet Start: 12/30/23 11:24:00 AM EDT, 2 tab, PO, tid, Disp# 180 tab, Refills: 3, PRN: NEEDED, Pharmacy: [facility] Start Date: 12/30/23 Status: Ordered [...] 0, PRN: as needed for pain, Pharmacy: [id number] Start Date: 01/28/24 Status: Ordered Protonix 40 mg oral delayed release tablet Start: 04/22/23 3:22:00 PM EST, 1 tab, PO, Daily, Disp# 90 tab, Refills: 3, Pharmacy: [id number] Start Date: 04/22/23 Status: Ordered [...] 3, PRN: as needed for nausea/vomiting, Pharmacy: [facility] Start Date: 09/16/22 Status: Ordered Mental Status 02/10/24 Barriers to Learning one year None evide nt Mandatory Health Literacy Documentation Yes Health Literacy Communication Barriers N ever Primary Language Zimbabwean Problem List Condition Confirmation Course Effective Dates [...] Effective Dates Health Status Clinical Service Informant Abdominal pain Discharge Diagnosis 02/10/24 Non-Specified Malnutrition Discharge Diagnosis 02/10/24 Non-Specified Fistula Discharge Diagnosis 02/10/24 Non-Specified Ileostomy in place Discharge Diagnosis 02/10/24 Non-Specified Procedures Procedure Date Related Diagnosis Body [...] evidence for a bowel obstruction 6[facility] 7IMPRESSION: 1. No acute pulmonary process 8IMPRESSION: [...] No significant abnormality within the pelvis. 13[facility] 14impression: 1. no acute processes of the [...] Port-A Cath, left upper chest wall 17[facility] Impression: 1. No evidence for bowel obstruction [...] postivie for sphincter of Oddi dysfucntion. 2) [facility] sphincter of Oddi dysfunction score= 5. 28Normal study 29Nonobstructed abdominal bowel gas pattern noting moderate constipation 30no significant pathology that requires further endoscopic evaluation 31await path 32[facility] Impression: 1. No acute intracranial abnormality 33Findings [...] Range]: 1 Temperature [36.5-37.9 DegC] 36.7 DegC (02/10/24 11:41 AM) Blood Pressure 114/62mmHg (02/10/24 11:41 AM) Cuff Pulse Pressure 52 mmHg (02/10/24 11:41 AM) Social History Social History Type Response Smoking Status Never smoked cigaret rich Sex Female Sex Representation Female (finding) [facility]CM Outpt Note * DO Addison Kristen M: PERFORM Event Display: [facility]CM Outpt Note Authored Date: [id number] Chief Complaint Pt here for f/u History of Present Illness Pt presents for follow up today. She has been under [facility] care program. There is a small thrombus at tip of the ocampo catheter. Review of Systems ROS: Denies AVENDAÑO, visual changes, SOB, CP, N/V, no edema, fever, chills, dysuria, bowel changes Physical Exam Vitals & Measurements T:36.7C BP:114/62 SpO2:98% PHQ2 Data(Data Documented on:02/10/2024 11:41) Emotional health assessment NEGATIVE G: AAAOx3, NAD A: soft +bs nt nd--no opening appreciated on abd surface for fistula E: no c/C/E b/l, pos distal pulses P: normal affect and insight, no homicidal/suicidal ideation Assessment/Plan 1.Abdominal pain Chronic condition, stable Goal:Resolution Data:unique tests ordered: _ Plan: _pt with fistula which is very concerning for mass effect of fluid collection 2.Ileostomy in place Chronic condition, stable Goal:Resolution Data:unique tests ordered: _ Plan: _decreased output see #1 3.Malnutrition Chronic condition, stable Goal:Resolution Data:unique tests ordered: _ Plan: _cont TPN 4.Fistula Chronic condition, stable Goal:Resolution Data:unique tests ordered: _ Plan: _pt is going to notify her surgeon of the fistula and the increasing discomfort Attestation I spent4 mintime in previsit planning including prepping note and chart review . I spent40 time in face to face interaction with patient concerning the issues that brought them in today. I spent4 min time in post visit planning including finishing note and depart process Total time spent today on patient visit48 min Problem List/Past Medical History Ongoing Abdominal [...] with contrast| Service Date: 1Loop ileostomy| Service Date: 09/05/2020US abdominal scan| Service [...] due11/15/23and every 1year Due Adult COVID-19 Vaccination due02/10/24Unknown Frequency Adult Folic Acid Supplementation due02/10/24and every 3year Adult Social Determinants of Health Screening due02/10/24Unknown Frequency Shingles Vaccine due02/10/24One-time only Due In Future Body Mass Index not due until09/25/24and every 366day Satisfied(in the past 1 year) Satisfied Adult Influenza Vaccine on05/06/23.Satisfied by MARCOS Black Gillian Electronic Signature on File Electronically Reviewed/Signed by: Mariah Addison DO Author Signature Dt/Tm:02/10/2024 12:55 PM Department of Family Medicine [facility] Patient Care team information Care Team Personnel Name: MD Rubio Jonathan D Position: Physician - Family Med Member Role: Lifetime Relationship Address: [address] [place] [id number] [place] Name: YULISSA Ford Tara Position: Nurse Pract - Family Med Member Role: Lifetime Relationship Address: [address] [place] [address] [place] Name: Jacob Neely Kayla Position: Pharmacist Member Role: Pharmacy - Lifetime Name: DO Fair Franklin J Position: Physician - Family Med Member Role: Lifetime Relationship Address: [address] [place] [address] [place] Name: MD Singer Mark H Position: Physician - Ped Echo Member Role: Lifetime Relationship Address: [address] [place] [address] Name: DO Addison Kristen M Position: Physician - Family Med Member Role: Primary Care Provider Address: [address] [place] [address] [place] Name: Jacob Giang Kyle Position: Pharmacist Member Role: Pharmacy - Lifetime Address: [address] [place] [address] Care Team Related Persons Name: MEGHANA TALBOT Name: MEGHANA TALBOT Name: DANY TALBOT Name: DANY TALBOT"
--- OUTSIDE RECORDS SUMMARY | 2024-04-07 15:33 | External Medical Summary | Summary of Care ---
Author Name Unknown Organization [facility] Address [address] [place] [address] Phone [phone] Care Team Providers Care Entry Level Manufacturing Engineer Name Role Phone Mariah Addison Primary Care Provider Reason for Visit * Reason Onset Date Comments Advice 03/07/2024 Encounter Details Date Type Department Care Team (Late st Contact Info) Description 03/07/2024 Telephone Nutrition & Weight Management, [place] [address] [place] [address] Jennifer Rust MD [address] [place] [address] Advice Allergies Active Allergy Reactions Criticality Noted Date Comments Amoxicillin-Pot Clavulanate 03/16/20 09 Rash Cefazolin Sodium 03/16/2009 rash Diphenhydramine Anaphylaxis High 10/13/2017 Other reaction(s): Itching IV FORM Metoclopramide High 10/27/2019 Other reaction(s): Anxiety Promethazine Hcl Hives High 12/17/2016 Throat swelled shut . Sulfa Antibiotics Rash 05/22/2011 documented as of this encounter (statuses as of 03/10/2024) Medications Medication Sig Dispensed Refills Start Date [...] tablet As needed 04/16/2017 Active K Phos [place]-Sod Phos Di & [place] ([id number]) [id number] MG TABS Take 250 mg by [...] as of this encounter (statuses as of 03/10/2024) Active Problems Problem Noted Date Diagnosed Date [...] as of this encounter (statuses as of 03/10/2024) Resolved Problems Problem Noted Date Diagnosed Date Resolved Date Allergic rhinitis, cause unspecified 10/18/2012 03/14/2014 Rhinitis due to pollen 05/22/201110/18 NO SIGNIFICANT MED HX 2012 documented as of this encounter (statuses as of 03/10/2024) Immunizations Name Administration Dates Next Due DTWP - Dipth/Tet/Whole Cell Pertussis 1992 ,1992,1992 DTaP Dipth/Tet/Acell Pertussis (Infanrix), Peds 01/23/1997,08/15/1993 Haemophilius B (HIB), unspecified 1993,1992,1992,1991 Hepatitis B Vaccine 1992,1992,1991 MMR - Measles/Mumps/Rubella Vaccine 01/23/1997,0 05/23/1993 OPV - Polio Virus Vaccine (Oral) 997,08/15/1993,1992,1991 Seasonal Influenza Vac., MDV , IM, 0.5 mL (Fluzone) 03/14/2014 Seasonal Influenza, Quadriva lent, No Preserve, IM 04/14/2015 Varicella Vaccine (Chicken Pox) 03/24/1995 documented as [...] encounter Miscellaneous Notes * Telephone Encounter - Jennifer Rust MD - 03/10/2024 12:59 PM EDT I called [facility], Pt's TPN is now being managed by in [place]. [facility] was in contact with that provider and has all the information they need. Pt will continue to follow with GI in [place] for TPN needs. * Telephone Encounter - Ratna Soto RN - 03/07/2024 12:02 PM EDT [facility] calling. They are taking over this patient's [...] filedocumented as of this encounter Care Teams Entry Level Manufacturing Engineer Relationship Specialty Start Date End Date Mariah Addison DO [facility] [address], [place] [address] PCP - General Family Medicine 03/14/14 documented as of this encounter"
[2024-04-07] MEDS: LACTATED RINGER'S 1,000 ML IV SCH (16:01)
[2024-04-07] MEDS: CHECK fentaNYL PATCH PLACEMENT SCH (16:04)
--- NOTE | 2024-04-08 07:12 | Hospitalist Progress Note ---
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 Abdominal pain, acute on chronic RUQ more than epigastric to clarify --ddx being motility, adhesional, SMA obstruction ----nothing appearing c/w surgical emergency - in d/w PCP, pt/mom - for now supportive care, time - high probability acute pain crisis situation will settle out with supportive care/hydration/pain/nausea control ----would hold off on surgical intervention for SMA obstruction appearance on SBFT unless sx really persistent/frequently recurrent/intractable; at the same time prior track record with adhesions raises small but real concern of requiring another lysis if symptoms don't improve --->Ativan q6 alt w Zofran q6 (so she gets something q3) prn nausea --->Dilaudid q4 scheduled (takes oxycodone q4 more or less scheduled recently at home) and q2 prn pain --->hydration often helps POTS physiology which then helps with pain/nausea Acute dehydration IV fluids, TPN once she's doing better, to bring home TPN and may expect some worsening of abdominal pain with restarting TPN Severe protein-calorie malnutrition TPN once she's doing better Visceral hyperalgesia chronic pain management, supportive care, outpt surgery and pain management follow up POTS (postural orthostatic tachycardia syndrome) IV fluids, steroids (for adrenal insufficiency as well) Seizure-like activity PNES from pain Dispo: pending further symptom control at this time, to stay at least today for further med management Admission and Anticipated Discharge Date Admission Date: April 06, 2024 Supervising Physician Co-Signing Physician Notes I personally examined the patient and verified all solorzano points of history and exam, discussed case, and agree with decision making with Dr Jurado pain maybe a little worse nausea maybe a little better. vitals noted fatigued but nad breathing unlabored no accessory muscles good effort skin no rashes no pallor or icterus acute on chronic abdominal pain/nausea/visceral hyperalgesia - imaging does raise concern on recurrence of SMA but since sometimes this can be functional would manage w supportive care / expectant management for now; could also fit with distal adhesions - but again would start w conservative care and be slow to move towards surgery. noting appearing acutely surgical (and all may completely improve w supportive care) escalated prn dosing of pain meds a little. continue current care. follow. discussed outpt pain management f/u - probably w [facility] to coordinate w surgical team has surgical f/u early april Subjective Today, pt states she is doing okay. She states she had a bad night with a pseudoseizure overnight but non since getting her pain medication. She states that the nausea is maybe a bit better today but the pain is overall unchanged from yesterday otherwise. Mom is present with her today. Review of Systems Review of Systems: Per HPI. Physical Exam Physical Exam: General:Alert and oriented, no acute distress, but uncomfortable appearing HEENT: Normocephalic, moist oral mucosa, Cardio: Regular rate and rhythm, Resp:No increased resp effort, no resp distress Skin: Warm, pink, dry, Results & Data Results & Data Vital Signs (Past 12 Hours) Vital Signs Temp Pulse Resp BP Pulse Ox O2 Del Method 04/07/24 21:16 36.8 C 93 H 16 127/85 93 Room Air Resident Activity Tracking Resident Involvement: Resident Care Provided Care Provided: Adult Hospital Medicine
[2024-04-08] MEDS: HYDROmorphone INJ 1 MG/ML SYRINGE IV PRN (14:37)
--- NOTE | 2024-04-08 17:55 | Billing Data ---
Date of Service April 08, 2024 Coding Level of Care Code 60977 SUB INP/OBS CARE
[2024-04-08] MEDS: LACTATED RINGER'S 1,000 ML IV SCH (18:15)
[2024-04-08] MEDS: fentaNYL 75 MCG/HR TDSY TD SCH (18:29)
--- NOTE | 2024-04-09 09:37 | Hospitalist Progress Note ---
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 Abdominal pain, acute on chronic RUQ more than epigastric to clarify --ddx being motility, adhesional, SMA obstruction ----nothing appearing c/w surgical emergency - in d/w PCP, pt/mom - for now supportive care, time - high probability acute pain crisis situation will settle out with supportive care/hydration/pain/nausea control ----would hold off on surgical intervention for SMA obstruction appearance on SBFT unless sx really persistent/frequently recurrent/intractable; at the same time prior track record with adhesions raises small but real concern of requiring another lysis if symptoms don't improve --->Ativan q6 alt w Zofran q6 (so she gets something q3) prn nausea --->Dilaudid 1 mg IV q4 scheduled (takes oxycodone q4 more or less scheduled recently at home) and 1.5 mg q2 prn for breakthrough pain ---> TDF patch 75 mcg q3d --->hydration often helps POTS physiology which then helps with pain/nausea Acute dehydration IV fluids, TPN once she's doing better, to bring home TPN and may expect some worsening of abdominal pain with restarting TPN ---> To try clear liquids today Severe protein-calorie malnutrition TPN once she's doing better; clear liquids for today Visceral hyperalgesia chronic pain management, supportive care, outpt surgery and pain management follow up POTS (postural orthostatic tachycardia syndrome) IV fluids, steroids (for adrenal insufficiency as well) Seizure-like activity PNES from pain; most recent episode this morning Dispo: pending further symptom control at this time; may discharge back home once adequate pain/symptom control is achieved Admission and Anticipated Discharge Date Admission Date: April 06, 2024 Supervising Physician Co-Signing Physician Notes Patient seen and examined, chart reviewed, case discussed with Dr. Sarmiento and I agree with the assessment and plan as above except as otherwise noted Labs and images reviewed Pilar is seen at the bedside with her father present. Pain is slightly improved today, she had 2 episodes of her vasovagalnonepileptiform seizure activity last night which have been precipitated by pain in the past however is slightly improved today had 1 short episode this morning. Pain at time of bedside reassessment is tolerable with adjustments made this morning. Ideally patient will continue to clinically progress with conservative care and will need to follow-up with [facility] and is a candidate for mesenteric transplant, no emergent indication for transfer at this time. Patient may also have underlying SMA versus adhesional disease but again has done well with conservative therapy in the past and no signs for acute transfer at this time. Agree with analgesic management as above. No additional questions or concern from patient or her father at bedside. Abdomen is diffusely mildly tender but she does not have rebound/guarding today Subjective Patient evaluated at bedside with mother at bedside chair, and found to be awake alert and oriented in all spheres, afebrile, and in no acute distress. She states that her pain is somewhat better controlled compared to yesterday but does still feel significant discomfort in abdomen. Has not been able to eat anything and is still preferring to hold TPN given history of adverse reaction whenever it is restarted. Is willing to try clear liquid diet today to see how she tolerates it. Nursing states that patient had pseudoseizure this morning that involved both upper and lower extremities and lasted approximately a minute and a half. No urinary incontinence, vomiting, biting of her tongue, or any other symptom. Did not have any postictal state and was conscious and able to answer questions almost as soon as the episode ended. No new fevers, chills, chest pain, difficulty breathing, or any other systemic symptoms. Review of Systems Review of Systems: Per HPI. Physical Exam Physical Exam: General:Alert and oriented, no acute distress, but uncomfortable appearing HEENT: Normocephalic, moist oral mucosa, Cardio: Regular rate and rhythm, Resp:No increased resp effort, no resp distress Abdomen: Colostomy in right lower quadrant draining small amounts of brownish stool without any blood (was emptied in the middle of the night and is not overly full at time of evaluation), no cellulitic changes in the skin surrounding colostomy, tenderness to palpation of right upper quadrant Skin: Warm, pink, dry Results & Data Results & Data Vital Signs (Past 12 Hours) Vital Signs Temp Pulse Resp BP Pulse Ox O2 Del Method 04/09/24 07:40 36.6 C 87 18 133/85 95 Room Air Resident Activity Tracking Resident Involvement: Resident Care Provided Care Provided: Adult Hospital Medicine
--- NOTE | 2024-04-09 13:58 | Billing Data ---
Date of Service April 09, 2024 Coding Level of Care Code 41120 SUB INP/OBS CARE
[2024-04-09] MEDS ORDERED: NALOXONE HCL 0.4 MG/1 ML VIAL/CARP IV ONE (18:18)
[2024-04-09] MEDS ORDERED: NALOXONE HCL 0.4 MG/1 ML VIAL/CARP IV PRN (18:55)
[2024-04-09] MEDS: LACTATED RINGER'S 1,000 ML IV SCH (20:03)
[2024-04-09] MEDS: HYDROmorphone INJ 2 MG/ML SYR/VIAL IV PRN (21:02)
--- NOTE | 2024-04-10 09:19 | Hospitalist Progress Note ---
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 Abdominal pain, acute on chronic RUQ more than epigastric to clarify --ddx being motility, adhesional, SMA obstruction ----continue supportive care for now --->Ativan q6 alt w Zofran q6 (so she gets something q3) prn nausea --->Dilaudid 1 mg IV q4 scheduled (takes oxycodone q4 more or less scheduled recently at home) and 2 mg q2 prn for breakthrough pain ---> TDF patch 75 mcg q3d --->hydration often helps POTS physiology which then helps with pain/nausea Acute dehydration IV fluids, TPN once she's doing better, to bring home TPN and may expect some worsening of abdominal pain with restarting TPN ---> To try clear liquids today now that pain is better Severe protein-calorie malnutrition TPN once she's doing better; clear liquids for today now that pain is better Visceral hyperalgesia chronic pain management, supportive care, outpt surgery and pain management follow up POTS (postural orthostatic tachycardia syndrome) IV fluids, steroids (for adrenal insufficiency as well) Seizure-like activity PNES from pain Dispo: pending further symptom control at this time; may discharge back home once adequate pain/symptom control is achieved Admission and Anticipated Discharge Date Admission Date: April 06, 2024 Supervising Physician Co-Signing Physician Notes Patient seen and examined, chart reviewed, case discussed with Dr. Sarmiento and I agree with the assessment and plan as above except as otherwise noted Labs and images reviewed Mother present this morning. Longstanding history Of epigastric abdominal pain, visceral hyperalgesia, and multiple admissions/procedures related to this and with concern for SMA narrowing in addition to possible adhesional disease. She reports that with dose adjustments for pain with since yesterday she does feel much better. He is starting to progress and tolerate oral liquids although slowly. He has not had any further episodes of her vagal/seizure-like activity. Does get intermittent BMP checks spaced out as much as possible however does have some concern for her potassium levels which are intermittently low, will spot check today and replete as needed. She is progressing will defer interventional follow-up for both underlying SMA narrowing and adhesional disease however if she is not able to progress completely to a regular diet or has progression then we will have to reconsider these. No other questions at bedside, patient and mother appreciative of care. Continuing to progress. Agree with above Subjective Patient evaluated bedside and found to be awake alert and oriented in all spheres, afebrile, in no acute distress. Patient states that after increase in as needed Dilaudid to 2 mg yesterday she has noted some improvement with regard to her abdominal pain and this morning was able to tolerate a popsicle. Given improvement of pain she is open to trying to increase her p.o. intake today gradually to assess tolerance. Denies any fever/chills, chest pain, shortness of breath, weakness, or any other systemic symptoms. Review of Systems Review of Systems: Per HPI. Physical Exam Physical Exam: General:Alert and oriented, no acute distress HEENT: Normocephalic, moist oral mucosa, Cardio: Regular rate and rhythm, Resp:No increased resp effort, no resp distress Abdomen: no cellulitic changes in the skin surrounding colostomy, generalized tenderness to palpation more marked in right upper quadrant Skin: Warm, pink, dry Results & Data Results & Data Vital Signs (Past 12 Hours) Vital Signs Temp Pulse Resp BP Pulse Ox O2 Del Method 04/10/24 07:30 36.6 C 84 18 141/93 H 96 Room Air Resident Activity Tracking Resident Involvement: Resident Care Provided Care Provided: Adult Hospital Medicine
[2024-04-10 11:52] LABS: BUN Creatinine Ratio 5.2 (10-20); Calcium 8.7 mg/dl (8.6-10.3); Creatinine Clr Calc Pharmacy 130.4 ml/min
[2024-04-10] MEDS: POTASSIUM CHLORIDE CRTAB 20 MEQ TABCR PO STA (12:30)
--- NOTE | 2024-04-10 12:36 | Billing Data ---
Date of Service April 10, 2024 Coding Level of Care Code 20159 SUB INP/OBS CARE
--- NOTE | 2024-04-11 08:10 | Hospitalist Progress Note ---
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 1) Abdominal pain, acute on chronic - RUQ more than epigastric to clarify - ddx being motility, adhesional, SMA obstruction --> no imaging done here but recent small bowel follow through series done through [facility] - continue supportive care for now - Ativan q6 alt w Zofran q6 (so she gets something q3) prn nausea - Dilaudid 1 mg IV q4 scheduled (takes oxycodone q4 more or less scheduled recently at home) and 2 mg q2 prn for breakthrough pain - TDF patch 75 mcg q3d - hydration often helps POTS physiology which then helps with pain/nausea 2) Acute dehydration - IV fluids, TPN once she's doing better, to bring home TPN and may expect some worsening of abdominal pain with restarting TPN - Continue clear liquids today now that pain is better 3) Severe protein-calorie malnutrition #resolved - TProt, 7.1; Albumin, 4.2 - TPN once she's doing better; continue clear liquids for today now that pain is better 4) Visceral hyperalgesia chronic pain management, supportive care, outpt surgery and pain management follow up - 5) POTS (postural orthostatic tachycardia syndrome)/Adrenal insufficiency IV fluids, steroids--fludrocortisone and hydrocortisone 6) Seizure-like activity PNES from pain 7) Endometriosis - norethindrone, 0.35 mg, PO, qAM at home, held for now Code status: Full code Dispo: pending further symptom control at this time; may discharge back home once adequate pain/symptom control is achieved FENGI: Clear liquids diet, TPN when improving VTE Prophylaxis: ambulation Admission and Anticipated Discharge Date Admission Date: April 06, 2024 Supervising Physician Co-Signing Physician Notes ATTESTATION I also saw the patient and confirmed solorzano portions of the history and exam. I agree with the impression and plan in the resident documentation, and as summarized below. Dad at bedside. The patient states that her really tolerate p.o. is somewhat better than yesterday. So some subtle signs of improvement. Pain still comes in waves, and the waves are less frequent and the peaks a little bit better than previous. EXAM VSS Alert and oriented. No distress appreciated. Heart regular rate and rhythm Respirations unlabored DATA Labs Hgb 12.2 IMPRESSION & PLAN Abdominal pain, acute on chronic Acute dehydration, improving SMA Syndrome Gradually increase PO Symptomatic medications Ultimately will need to follow up with transplant team at [facility] Additional per resident documentation Subjective Patient seen this morning and evaluated at bedside and in no acute distress. Patient states that after increase in as needed Dilaudid to 2 mg yesterday she has noted some improvement with regard to her abdominal pain and this morning was able to tolerate a popsicle. Given improvement of pain she is open to trying to continue her oral intake on a clear liquids diet today gradually to assess tolerance. Patient has had small bowel follow-through series as outpt at [facility] that showed an abnormality, but the surgeon is out of country and has not F/U w/ surgeon since that time. Patient seems to suggest it showed a narrowing or stricture in the duodenal or ileal area. The pain right now is off and on (going from 3/10 to 7/10), the adjustments to the meds have helped. Patient is tolerating clear liquids. needs to drain from G-tube. Due to ileostomy pt often needs IV potassium even at home. Review of Systems Constitutional: no fever and no chills Respiratory: no cough and no dyspnea Cardiovascular: no chest pain and no palpitations Gastrointestinal: + abdominal pain; no nausea, no vomiting and no change in bowel habits Genitourinary: no dysuria and no urinary frequency Physical Exam Constitutional: WD/WN, vitals as above Respiratory: normal respiratory effort, lungs clear to auscultation Cardiovascular: RRR, no murmur, no edema Extremities: normal capillary refill; no calf tenderness and no pedal edema Gastrointestinal (Abdomen): Inspection/Auscultation: normal bowel sounds Percussion/Palpation: + abdomen tender (RUQ and epigastric pain present w/ palpation) ileostomy tube present Psychiatric: A+Ox3, euthymic affect Results & Data Results & Data Vital Signs (Past 12 Hours) Vital Signs Temp Pulse Resp BP Pulse Ox O2 Del Method 04/11/24 04:05 36.7 C 90 21 135/91 94 Room Air Resident Activity Tracking Resident Involvement: Resident Care Provided Care Provided: Adult Hospital Medicine
[2024-04-11 11:24] LABS: Basophils # (auto) 0.03 K/uL (0.00-0.20); Basophils % (auto) 0.4 %; Eosinophils # (auto) 0.02 K/uL (0.00-0.50); Eosinophils % (auto) 0.3 %; Hematocrit (blood only) 35.7 % (37.0-47.0); Hemoglobin 12.2 g/dl (12.0-16.0); Immature Granulocytes # (auto) 0.02 K/uL (0.01-0.20); Immature Granulocytes % (auto) 0.3 %; Lymphocytes % (auto) 11.6 %; Mean Corpuscular Hemoglobin 30.7 pg (25.0-34.0); Mean Corpuscular Hgb Conc 34.2 g/dL (32.0-36.0); Mean Corpuscular Volume 89.7 fL (80.0-100.0); Mean Platelet Volume 9.8 fL (9.4-12.4); Monocytes # (auto) 0.41 K/uL (0.11-0.59); Monocytes % (auto) 5.9 %; Neutrophils # (auto) 5.63 K/uL (1.40-6.50); Neutrophils % (auto) 81.5 %; Platelet Count 339 K/uL (130-400); RDW Standard Deviation 38.7 fL (36.4-46.3); Red Blood Count 3.98 M/uL (4.20-5.40); White Blood Count 6.91 K/ul (4.8-10.8)
[2024-04-11] MEDS: LACTATED RINGER'S 1,000 ML IV SCH (22:20)
--- NOTE | 2024-04-12 07:53 | Hospitalist Progress Note ---
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 1) Abdominal pain, acute on chronic - RUQ more than epigastric to clarify - ddx being motility, adhesional, SMA obstruction --> no imaging done here but recent small bowel follow through series done through [facility] - continue supportive care for now - Ativan q6 alt w Zofran q6 (so she gets something q3) prn nausea - Dilaudid 1 mg IV q3hrs scheduled (takes oxycodone q4 more or less scheduled recently at home) and 2 mg q2hrs prn for breakthrough pain - TDF patch 75 mcg q3d - hydration often helps POTS physiology which then helps with pain/nausea 2) Acute dehydration - IV fluids, TPN once she's doing better, to bring home TPN and may expect some worsening of abdominal pain with restarting TPN - Continue clear liquids today now that pain is better 3) Severe protein-calorie malnutrition #resolved - TProt, 7.1; Albumin, 4.2 - TPN once she's doing better; continue clear liquids for today now that pain is better 4) Visceral hyperalgesia chronic pain management, supportive care, outpt surgery and pain management follow up - see above 5) POTS (postural orthostatic tachycardia syndrome)/Adrenal insufficiency IV fluids, steroids--fludrocortisone and hydrocortisone 6) Seizure-like activity PNES from pain 7) Endometriosis - norethindrone, 0.35 mg, PO, qAM (patient's own oral contraceptive) during hospital stay 8) Hypokalemia - K, 2.7 - pt given 40 mEq KCL Code status: Full code Dispo: pending further symptom control at this time; may discharge back home once adequate pain/symptom control is achieved FENGI: Clear liquids diet, TPN when improving VTE Prophylaxis: ambulation Admission and Anticipated Discharge Date Admission Date: April 06, 2024 Supervising Physician Co-Signing Physician Notes ATTESTATION I also saw the patient and confirmed solorzano portions of the history and exam. I agree with the impression and plan in the resident documentation, and as summarized below. Dad at bedside. The patient states that her really tolerate p.o. is somewhat better than yesterday. So some subtle signs of improvement. Pain still comes in waves, and the waves are less frequent and the peaks a little bit better than previous. EXAM VSS Alert and oriented. No distress appreciated. Heart regular rate and rhythm Respirations unlabored DATA Labs Hgb 12.5 K 2.7 IMPRESSION & PLAN Abdominal pain, acute on chronic Acute dehydration, improving Hypokalemia SMA Syndrome PO intake variable, so will continue IVF Replete potassium and monitor Change scheduled dilaudid to 1mg q3 Ultimately will need to follow up with transplant team at [facility] Additional per resident documentation Subjective Patient seen this morning and evaluated at bedside and in no acute distress. Given improvement of pain she is open to trying to continue her oral intake on a clear liquids diet today gradually to assess tolerance. Patient has had small bowel follow-through series as outpt at [facility] that showed an abnormality, but the surgeon is out of country and has not F/U w/ surgeon since that time. Patient seems to suggest it showed a narrowing or stricture in the duodenal or ileal area. The pain right now is off and on (going from 3/10 to 7/10), the adjustments to the meds have helped. Patient is tolerating clear liquids. needs to drain from G-tube. Due to ileostomy pt often needs IV potassium even at home. Patient is having increased bloody mucus discharge from her rectal stump along w/ increased persistent RUQ pain (8-9/10). Patient felt that some fatty acid chain enemas helped w/ the rectal pain the most before. Can look into that later, but is likely an outpatient therapy provided by compounding pharmacy. Thought that one of the residents helped w/ that before. Review of Systems Review of Systems: Per HPI. Constitutional: no fever and no chills Respiratory: no cough and no dyspnea Cardiovascular: no chest pain and no palpitations Gastrointestinal: + abdominal pain; no nausea, no vomiting and no change in bowel habits Genitourinary: no dysuria and no urinary frequency Physical Exam Constitutional: WD/WN, vitals as above Respiratory: normal respiratory effort, lungs clear to auscultation Cardiovascular: RRR, no murmur, no edema Extremities: normal capillary refill; no calf tenderness and no pedal edema Gastrointestinal (Abdomen): Inspection/Auscultation: normal bowel sounds Percussion/Palpation: + abdomen tender (RUQ and epigastric pain present w/ palpation) Psychiatric: A+Ox3, euthymic affect Results & Data Results & Data Vital Signs (Past 12 Hours) Vital Signs BP 04/11/24 21:31 133/91 Resident Activity Tracking Resident Involvement: Resident Care Provided Care Provided: Pediatric Care
[2024-04-12] MEDS: HYDROmorphone INJ 1 MG/ML SYRINGE IV SCH (12:13)
[2024-04-12 13:27] LABS: Hematocrit (blood only) 36.4 % (37.0-47.0); Hemoglobin 12.5 g/dl (12.0-16.0); Mean Corpuscular Hemoglobin 30.7 pg (25.0-34.0); Mean Corpuscular Hgb Conc 34.3 g/dL (32.0-36.0); Mean Corpuscular Volume 89.4 fL (80.0-100.0); Mean Platelet Volume 10.1 fL (9.4-12.4); Platelet Count 382 K/uL (130-400); RDW Coefficient of Variation 12.2 % (11.5-14.5); RDW Standard Deviation 39.6 fL (36.4-46.3); Red Blood Count 4.07 M/uL (4.20-5.40); White Blood Count 8.56 K/ul (4.8-10.8)
[2024-04-12 13:37] LABS: BUN Creatinine Ratio 4.5 (10-20); Creatinine Clr Calc Pharmacy 112.8 ml/min; Potassium 2.7 mmol/L (3.5-5.1)
[2024-04-12] MEDS: LACTATED RINGER'S 1,000 ML IV SCH (13:42)
[2024-04-12] MEDS: POTASSIUM CHLORIDE CRTAB 20 MEQ TABCR PO STA (14:10)
[2024-04-12] MEDS: POTASSIUM CHLORIDE CRTAB 20 MEQ TABCR PO ONE (20:26)
[2024-04-13 06:49] LABS: Basophils # (auto) 0.03 K/uL (0.00-0.20); Basophils % (auto) 0.4 %; Eosinophils # (auto) 0.01 K/uL (0.00-0.50); Eosinophils % (auto) 0.1 %; Hematocrit (blood only) 33.5 % (37.0-47.0); Hemoglobin 11.4 g/dl (12.0-16.0); Immature Granulocytes # (auto) 0.03 K/uL (0.01-0.20); Immature Granulocytes % (auto) 0.4 %; Lymphocytes # (auto) 1.95 K/uL (1.20-3.40); Lymphocytes % (auto) 24.6 %; Mean Corpuscular Hemoglobin 30.4 pg (25.0-34.0); Mean Corpuscular Volume 89.3 fL (80.0-100.0); Mean Platelet Volume 9.7 fL (9.4-12.4); Monocytes # (auto) 0.72 K/uL (0.11-0.59); Monocytes % (auto) 9.1 %; Neutrophils # (auto) 5.19 K/uL (1.40-6.50); Neutrophils % (auto) 65.4 %; Platelet Count 351 K/uL (130-400); RDW Coefficient of Variation 12.5 % (11.5-14.5); RDW Standard Deviation 39.8 fL (36.4-46.3); Red Blood Count 3.75 M/uL (4.20-5.40); White Blood Count 7.93 K/ul (4.8-10.8)
[2024-04-13 07:18] LABS: Albumin Globulin Ratio 1.7 (0.9-2); Albumin Level 3.7 gm/dl (3.4-5.0); BUN Creatinine Ratio 5.6 (10-20); Bilirubin,Total 0.3 mg/dl (0.2-1.0); Calcium 8.6 mg/dl (8.6-10.3); Globulin 2.2 gm/dl (2.5-4.0); Total Protein 5.9 gm/dl (6.0-8.3)
--- NOTE | 2024-04-13 07:55 | Hospitalist Progress Note ---
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 1) Abdominal pain, acute on chronic - RUQ more than epigastric to clarify - ddx being motility, adhesional, SMA obstruction --> no imaging done here but recent small bowel follow through series done through [facility] - continue supportive care for now - Ativan q6 alt w Zofran q6 (so she gets something q3) prn nausea - Dilaudid 1 mg IV q3hrs scheduled (takes oxycodone q4 more or less scheduled recently at home) and 2 mg q2hrs prn for breakthrough pain --> will consider transitioning back to scheduled oral pain meds (with IV pain meds for breakthrough only) on Thursday - TDF patch 75 mcg q3d - hydration often helps POTS physiology which then helps with pain/nausea 2) Acute dehydration - IV fluids, TPN once she's doing better, may expect some worsening of abdominal pain with restarting TPN - Continue clear liquids today now that pain is better 3) Severe protein-calorie malnutrition #resolved - TProt, 5.9, L; Albumin, 3.7; Globulin, 2.2, L - Mg, 1.7; P, 3.5 - TPN w/out electrolytes started tonight, TPN w/ electrolytes will be started tomorrow - Mg and P ordered for tommorrow 4) Visceral hyperalgesia chronic pain management, supportive care, outpt surgery and pain management follow up - see above 5) POTS (postural orthostatic tachycardia syndrome)/Adrenal insufficiency IV fluids, steroids--fludrocortisone and hydrocortisone 6) Seizure-like activity PNES from pain 7) Endometriosis - norethindrone, 0.35 mg, PO, qAM (patient's own oral contraceptive) during hospital stay 8) Hypokalemia - K, 3.0 <-- 2.7 - pt given 40 mEq KCL, IV, today and 40 mEq KCl, PO, BID today Code status: Full code Dispo: pending further symptom control at this time; may discharge back home once adequate pain/symptom control is achieved FENGI: Clear liquids diet, TPN when improving VTE Prophylaxis: ambulation Admission and Anticipated Discharge Date Admission Date: April 06, 2024 Supervising Physician Co-Signing Physician Notes ATTESTATION I also saw the patient and confirmed solorzano portions of the history and exam. I agree with the impression and plan in the resident documentation, and as summarized below. Dad at bedside. Seems a little better today. Feels she could start TPN. EXAM VSS Alert and oriented. No distress appreciated. Heart regular rate and rhythm Respirations unlabored DATA Labs Hgb 11.4 K 3.0 BUN 3/0.54 IMPRESSION & PLAN Abdominal pain, acute on chronic Acute dehydration, improving Hypokalemia SMA Syndrome PO intake variable, so will continue IVF Will reach out to nutrition/pharmacy regarding TPN Replete potassium and monitor Continue scheduled dilaudid at 1mg q3 Ultimately will need to follow up with transplant team at [facility] Additional per resident documentation Subjective Patient seen this morning and is doing better today than yesterday after the adjustment in her pain med regimen. Patient has had small bowel follow-through series as outpt at [facility] that showed an abnormality, but the surgeon is out of country and has not F/U w/ surgeon since that time. Patient seems to suggest it showed a narrowing or stricture in the duodenal or ileal area. Patient is tolerating clear liquids. needs to drain from G-tube. Due to ileostomy pt often needs IV potassium even at home. Patient is concerned about re-feeding syndrome when she re-starts her TPN Patient is having continued bloody mucus discharge from her rectal stump along w/ increased persistent RUQ pain (8-9). Patient felt that some fatty acid chain enemas helped w/ the rectal pain the most before. Review of Systems Review of Systems: Per HPI. Constitutional: no fever and no chills Respiratory: no cough and no dyspnea Cardiovascular: no chest pain and no palpitations Gastrointestinal: + abdominal pain; no nausea, no vomiting and no change in bowel habits Genitourinary: no dysuria and no urinary frequency Physical Exam Constitutional: WD/WN, vitals as above Respiratory: normal respiratory effort, lungs clear to auscultation Cardiovascular: RRR, no murmur, no edema Extremities: normal capillary refill; no calf tenderness and no pedal edema Gastrointestinal (Abdomen): Inspection/Auscultation: normal bowel sounds Percussion/Palpation: + abdomen tender (RUQ and epigastric pain present w/ palpation) Psychiatric: A+Ox3, euthymic affect Results & Data Results & Data Vital Signs (Past 12 Hours) Vital Signs Temp Pulse Resp BP Pulse Ox O2 Del Method 04/12/24 20:40 36.9 C 84 16 137/93 94 Room Air
[2024-04-13] MEDS: POTASSIUM CHLORIDE CRTAB 20 MEQ TABCR PO SCH (10:27)
[2024-04-13] MEDS: POTASSIUM CHLORIDE / WTR 10 MEQ/100 ML PLCT IV SCH (10:27)
[2024-04-13] MEDS ORDERED: TPN/PPN CONSULT PHARMACY PRN (13:56)
[2024-04-13 14:18] LABS: Magnesium 1.7 mg/dl (1.7-2.4); Phosphorus 3.5 mg/dl (2.5-4.9)
[2024-04-13] MEDS ORDERED: DEXTROSE 10% 1,000 ML IV PRN (14:22)
[2024-04-13] MEDS: AA 8%/D14W 1L 1,000 ML in Central TPN bag 0 ML IV SCH (21:22)
[2024-04-14 07:00] LABS: Basophils # (auto) 0.03 K/uL (0.00-0.20); Basophils % (auto) 0.3 %; Hemoglobin 11.4 g/dl (12.0-16.0); Immature Granulocytes # (auto) 0.03 K/uL (0.01-0.20); Immature Granulocytes % (auto) 0.3 %; Lymphocytes # (auto) 1.24 K/uL (1.20-3.40); Lymphocytes % (auto) 14.2 %; Mean Corpuscular Hgb Conc 33.5 g/dL (32.0-36.0); Mean Corpuscular Volume 89.5 fL (80.0-100.0); Monocytes % (auto) 9.2 %; Neutrophils # (auto) 6.62 K/uL (1.40-6.50); Platelet Count 355 K/uL (130-400); RDW Coefficient of Variation 12.6 % (11.5-14.5); RDW Standard Deviation 40.4 fL (36.4-46.3); White Blood Count 8.72 K/ul (4.8-10.8)
[2024-04-14 07:24] LABS: BUN Creatinine Ratio 18.4 (10-20); Calcium 8.5 mg/dl (8.6-10.3); Creatinine Clr Calc Pharmacy 154.3 ml/min; Magnesium 1.7 mg/dl (1.7-2.4); Phosphorus 2.9 mg/dl (2.5-4.9); Potassium 3.3 mmol/L (3.5-5.1)
--- NOTE | 2024-04-14 07:24 | Hospitalist Progress Note ---
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 1) Abdominal pain, acute on chronic - RUQ more than epigastric to clarify - ddx being motility, adhesional, SMA obstruction --> no imaging done here but recent small bowel follow through series done through [facility] - continue supportive care for now - Ativan q6 alt w Zofran q6 (so she gets something q3) prn nausea - Dilaudid 1 mg IV q3hrs scheduled (takes oxycodone q4 more or less scheduled recently at home) and 2 mg q2hrs prn for breakthrough pain --> will consider transitioning back to scheduled oral pain meds (with IV pain meds for breakthrough only) on Thursday - TDF patch 75 mcg q3d - hydration often helps POTS physiology which then helps with pain/nausea 2) Acute dehydration - IV fluids, TPN once she's doing better, may expect some worsening of abdominal pain with restarting TPN - Continue clear liquids today now that pain is better - LR, 80 mLs/hr, 2000 mL ordered today 3) Severe protein-calorie malnutrition #resolved - TProt, 5.9, L; Albumin, 3.7; Globulin, 2.2, L - Mg, 1.7; P, 3.5 - TPN w/out electrolytes started tonight, TPN w/ electrolytes will be started tomorrow - Mg and P ordered for tommorrow 4) Visceral hyperalgesia chronic pain management, supportive care, outpt surgery and pain management follow up - see above 5) POTS (postural orthostatic tachycardia syndrome)/Adrenal insufficiency IV fluids, steroids--fludrocortisone and hydrocortisone 6) Seizure-like activity PNES from pain 7) Endometriosis - norethindrone, 0.35 mg, PO, qAM (patient's own oral contraceptive) during hospital stay 8) Hypokalemia - K, 3.3 <-- 3.0 <-- 2.7 - pt given 40 mEq KCl, IV, today and 40 mEq KCl, PO, BID yesterday - oral KCl pills do not work/are not absorbed/come out of ileostomy bag whole --> could consider KCl, oral, powder - pt ordered and given 40 mEq KCl, IV, today Code status: Full code Dispo: pending further symptom control at this time; may discharge back home once adequate pain/symptom control is achieved FENGI: Clear liquids diet, TPN when improving VTE Prophylaxis: ambulation Admission and Anticipated Discharge Date Admission Date: April 06, 2024 Supervising Physician Co-Signing Physician Notes ATTESTATION I also saw the patient and confirmed solorzano portions of the history and exam. I agree with the impression and plan in the resident documentation, and as summarized below. Mom at bedside. Improved again today. Started TPN yesterday.. EXAM VSS Alert and oriented. No distress appreciated. Heart regular rate and rhythm Respirations unlabored DATA Labs Hgb 11.4 K 3.3 BUN 9/0.49 IMPRESSION & PLAN Abdominal pain, acute on chronic Acute dehydration, improving Hypokalemia SMA Syndrome TPN Replete potassium and monitor Continue scheduled dilaudid at 1mg q3; transition to PO tomorrow to replicate home regimen Maybe D/C over weekend so will need to coordinate home TPN order Thursday AM Ultimately will need to follow up with transplant team at [facility] as scheduled () Additional per resident documentation Subjective Patient seen this morning and is continuing to do better with the adjustment in her pain med regimen. Patient has had small bowel follow-through series as outpt at [facility] that showed an abnormality, but the surgeon is out of country and has not F/U w/ surgeon since that time. Patient seems to suggest it showed a narrowing or stricture in the duodenal or ileal area. Patient is tolerating clear liquids. needs to drain from G-tube. Due to ileostomy pt often needs IV potassium even at home. Patient noted that the oral potassium pills are not being absorbed and are coming out through her ileostomy tube still whole. Patient is concerned about re-feeding syndrome when she re-starts her TPN and was assured that P, Mg, and other electrolytes will be obtained. Patient is continuing to have rectal stump pain along w/ increased persistent RUQ pain (12/25). Patient felt that some fatty acid chain enemas helped w/ the rectal pain the most before, but this appears to be an outpt Tx. Review of Systems Review of Systems: Per HPI. Constitutional: no fever and no chills Respiratory: no cough and no dyspnea Cardiovascular: no chest pain and no palpitations Gastrointestinal: + abdominal pain; no nausea, no vomiting and no change in bowel habits Genitourinary: no dysuria and no urinary frequency Physical Exam Constitutional: WD/WN, vitals as above Respiratory: normal respiratory effort, lungs clear to auscultation Cardiovascular: RRR, no murmur, no edema Extremities: normal capillary refill; no calf tenderness and no pedal edema Gastrointestinal (Abdomen): Inspection/Auscultation: normal bowel sounds Percussion/Palpation: + abdomen tender (RUQ and epigastric pain present w/ palpation) Psychiatric: A+Ox3, euthymic affect Results & Data Results & Data Vital Signs (Past 12 Hours) Vital Signs Temp Pulse Resp BP Pulse Ox O2 Del Method 04/14/24 07:01 36.9 C 69 16 132/91 94 Room Air 04/13/24 19:26 36.6 C 83 20 144/95 H 94 Room Air Resident Activity Tracking Resident Involvement: Resident Care Provided Care Provided: Adult Hospital Medicine
[2024-04-14] MEDS: POTASSIUM CHLORIDE / WTR 10 MEQ/100 ML PLCT IV SCH (09:38)
[2024-04-14] MEDS ORDERED: LACTATED RINGER'S 1,000 ML IV SCH (11:15)
[2024-04-14] MEDS ORDERED: MULTIVITAMIN CHEWABLE TAB PO SCH (12:00)
[2024-04-14] MEDS: [UNRECOGNIZED DRUG - REMARK] SCH (15:03)
--- NOTE | 2024-04-14 15:16 | Pharmacy Report ---
Pharmacy Initial PN Consult Nt - Date of Service April 14, 2024 - [facility] Pharmacy has been consulted on this date to manage parenteral nutrition orders and order appropriate labs. As part of the Nutrition Support Team Guidelines, pharmacy will work in conjunction with dietary when determining the patients caloric needs. - Subjective * The patient is a 34 year old Female admitted on 04/06/24 for SBO. * Patient is to receive parenteral nutrition for chronic home use. * Pertinent PMHx: - Objective Vascular Access: * Patient currently has a central line. Height & Weight (Last Documented) Height 5 ft 6 in Weight 63.64 kg Diet Order(s) 04/06/24 Dinner Diet Intake & Ouput (24hrs) 04/13/24 04/14/24 04/15/24 06:59 06:59 06:59 Intake Total 1830.667 / 5911.678 2003.667 / 2242.667 855.466 / 855.466 Output Total 200 / 200 Balance 1630.667 / 7888.025 1626.667 / 2241.667 855.466 / 855.466 Selected Laboratory Results 04/14/24 06:19 Sodium 143 Potassium 3.3 L Chloride 104 Carbon Dioxide 32 Anion Gap 7 BUN 9 Creatinine 0.49 L BUN/Creatinine Ratio 18.4 Glucose 145 H Calcium 8.5 L Phosphorus 2.[address] - Follow Up Nutrition Assessment Start: 04/06/24 15:06 Freq: Status: Active Protocol: Document 04/13/24 13:22 [id number] (Rec: 04/13/24 13:36 [id number]) RD - Initial Nutrition Assessment Start: 04/06/24 14: 47 Freq: Status: Active Protocol: Document 04/06/24 14:47 WN (Rec: 04/06/24 15:06 WN [id number]) - Assessment & Plan Assessment: * Appreciate dietitians recommendations for macronutrients. Patient cannot tolerate IV Multivitamin, will continue with her own gummy PO vitamin while inpatient. Thiamine added to formulation today. Discussed incorporating lipids today, patient does not want to have them yet, provider aware. * Patient on cyclic TPN 2209-7122 daily. Plan: * For Day #1 of TPN administration, which started yesterday at 2100, patient received: * Macronutrients: * Amino Acids: 80 grams/day * Dextrose: 140 grams/day * Lipids: 0 grams/day * No Micronutrients as order was received too late in the day * For Day #2 of TPN administration, which will begin at 2100 today: * Macronutrients: * Amino Acids: 80 grams/day * Dextrose: 140 grams/day * Lipids: 0 grams/day - patient does not want lipids yet, plans to get 2x/wk but is not ready for them yet * Micronutrients: * Potassium phosphate: 15 mMol/day * Potassium chloride: 40 mEq/day * Magnesium sulfate: 4.06 mEq/day * Calcium gluconate: 4.65 mEq/day * Thiamine: 100 mg/day * Total volume of 1037 mL will be infused over 18 hours and will provide 796 kcal/day * Labs will be ordered per PN protocol. * Pharmacy will follow and adjust PN orders on a daily basis. Thank you!
[2024-04-14] MEDS: MULTIVITAMIN PO SCH (16:12)
[2024-04-14] MEDS: LORazepam 2 MG/1 ML VIAL IV PRN (17:15)
[2024-04-14] MEDS: AA 8%/D14W 1L 1,000 ML in Central TPN bag 0 ML IV SCH (22:02)
--- NOTE | 2024-04-15 07:55 | Hospitalist Progress Note ---
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 1) Abdominal pain, acute on chronic - RUQ more than epigastric to clarify - ddx being motility, adhesional, SMA obstruction --> no imaging done here, recent imaging at [facility], see below - continue supportive care for now - Patient has had small bowel follow-through series as outpt at [facility] that showed an abnormality, but the surgeon is out of country and has not F/U w/ surgeon since that time. Patient seems to suggest it showed a narrowing or stricture in the duodenal or ileal area. - Patient felt that some fatty acid chain enemas helped w/ the rectal pain the most before, but this appears to be an outpt Tx. - Ativan q6 alt w Zofran q6 (so she gets something q3) prn nausea - Dilaudid 1 mg IV q3hrs scheduled (takes oxycodone q4 more or less scheduled re cently at home) and 2 mg q2hrs prn for breakthrough pain --> will consider transitioning back to scheduled oral pain meds (with IV pain meds for breakthrough only) on Thursday - TDF patch 75 mcg q3d - hydration often helps POTS physiology which then helps with pain/nausea 2) Acute dehydration - IV fluids, TPN once she's doing better, may expect some worsening of abdominal pain with restarting TPN - Continue clear liquids today now that pain is better 3) Severe protein-calorie malnutrition - monitoring - TProt, 5.9, L; Albumin, 3.7; Globulin, 2.2, L - Mg, 1.7; P, 3.5 - TPN w/out electrolytes started tonight, TPN w/ electrolytes will be started tomorrow - Mg and P ordered for tomorrow, - CMP pending, boiler installer said pt needs to be off TPN for 24 hrs, placed lab orders for 20:00 during 4) Visceral hyperalgesia chronic pain management, supportive care, outpt surgery and pain management follow up - see above 5) POTS (postural orthostatic tachycardia syndrome)/Adrenal insufficiency IV fluids, steroids--fludrocortisone and hydrocortisone 6) Seizure-like activity PNES from pain 7) Endometriosis - norethindrone, 0.35 mg, PO, qAM (patient's own oral contraceptive) during hospital stay 8) Hypokalemia - K, 5.1 (could be error) 3.3 <-- 3.0 <-- 2.7 - CMP ordered for 20:00 today - pt given 40 mEq KCl, IV, today and 40 mEq KCl, PO, BID yesterday - oral KCl pills do not work/are not absorbed/come out of ileostomy bag whole --> could consider KCl, oral, powder - pt ordered and given 40 mEq KCl, IV, today 9) TPN Feedings - current feeding time from day 1, 21:00 - day 2, 15:00 w/ 6-hour daily window from 15:00 - 21:00 each day - TPN will perturb lab values, make them meaningless, will schedule labs to be taken at 20:00 each day Code status: Full code Dispo: Med-Tele FENGI: Clear liquids diet, TPN when improving VTE Prophylaxis: ambulation Admission and Anticipated Discharge Date Admission Date: April 06, 2024 Supervising Physician Co-Signing Physician Notes I personally examined the patient and verified solorzano points of history and exam, discussed case, and agree with decision making and plan documented by Dr. Ceja. Patient states acute exacerbation on chronic multifactorial abdominal pain is improved with current regimen in hospital. Will work with patient to transition her back to oral regimen when she is ready. Patient is currently back on TPN, will monitor labs appropriately. Father present at bedside today. Subjective Patient seen this morning, doing better than last night when she last had a PNES-type seizure. with the adjustment in her pain med regimen. Patient is tolerating clear liquids, needs to drain from G-tube. Due to ileostomy pt often needs IV potassium even at home. Patient noted that the oral potassium pills are not being absorbed and are coming out through her ileostomy tube still whole, so will continue w/ electrolyte-repleted TPN Patient is concerned about re-feeding syndrome, TPN re-started, and was assured that P, Mg, and other electrolytes will be obtained. Patient is continuing to have rectal stump pain along w/ increased persistent RUQ pain (12/25). No longer any rectal stump discharge though. Review of Systems Review of Systems: Per HPI. Constitutional: no fever and no chills Respiratory: no cough and no dyspnea Cardiovascular: no chest pain and no palpitations Gastrointestinal: + abdominal pain and + nausea (last nigh t, but resolved this morning); no vomiting and no change in bowel habits Genitourinary: no dysuria and no urinary frequency Physical Exam Constitutional: WD/WN, vitals as above Respiratory: normal respiratory effort, lungs clear to auscultation Cardiovascular: RRR, no murmur, no edema Extremities: normal capillary refill; no calf tenderness and no pedal edema Gastrointestinal (Abdomen): Inspection/Auscultation: normal bowel sounds Percussion/Palpation: + abdomen tender (RUQ and epigastric pain present w/ palpation) Psychiatric: A+Ox3, euthymic affect Results & Data Results & Data Vital Signs (Past 12 Hours) Vital Signs Temp Pulse Resp BP Pulse Ox O2 Del Method 04/15/24 07:29 36.7 C 73 16 121/87 95 Room Air 04/15/24 00:03 36.9 C 130 H 16 122/88 98 Room Air
[2024-04-15 12:14] LABS: Albumin Globulin Ratio 1.7 (0.9-2); Albumin Level 3.8 gm/dl (3.4-5.0); BUN Creatinine Ratio 28.1 (10-20); Bilirubin,Total 0.3 mg/dl (0.2-1.0); Calcium 8.8 mg/dl (8.6-10.3); Creatinine Clr Calc Pharmacy 132.6 ml/min; Globulin 2.2 gm/dl (2.5-4.0); Magnesium 1.8 mg/dl (1.7-2.4); Phosphorus 3.8 mg/dl (2.5-4.9); Potassium 5.1 mmol/L (3.5-5.1)
[2024-04-15] MEDS: CENTRAL TPN IV SCH (20:52)
[2024-04-15] MEDS: [UNRECOGNIZED DRUG - OTHER] IV SCH (20:52)
[2024-04-15 21:07] LABS: Albumin Globulin Ratio 1.9 (0.9-2); Albumin Level 4.3 gm/dl (3.4-5.0); BUN Creatinine Ratio 21.5 (10-20); Bilirubin,Total 0.3 mg/dl (0.2-1.0); Calcium 9.2 mg/dl (8.6-10.3); Creatinine Clr Calc Pharmacy 116.3 ml/min; Globulin 2.3 gm/dl (2.5-4.0); Magnesium 1.8 mg/dl (1.7-2.4); Phosphorus 3.2 mg/dl (2.5-4.9); Potassium 3.6 mmol/L (3.5-5.1); Total Protein 6.6 gm/dl (6.0-8.3)
--- NOTE | 2024-04-16 07:01 | Hospitalist Progress Note ---
Date of Service April 16, 2024 Assessment & Plan (1) Visceral hyperalgesia: (2) Severe protein-calorie malnutrition: (3) On total parenteral nutrition (TPN): (4) POTS (postural orthostatic tachycardia syndrome): (5) Seizure-like activity: Plan Pt is a 34 yo F with PMHx of gastroparesis with chronic abdominal pain s/p PEG and ostomy, hx SMA syndrome s/p multiple abdominal surgeries (appendectomy, cholecystectomy, hysterectomy, colectomy, and more), chronic pain syndrome (at times requiring ketamine), 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 1) Abdominal pain, acute on chronic - RUQ more than epigastric to clarify - ddx being motility, adhesional, SMA obstruction --> no imaging done here, recent imaging at [facility], see below - continue supportive care for now - Patient has had small bowel follow-through series as outpt at [facility] that showed an abnormality, but the surgeon is out of country and has not F/U w/ surgeon since that time. Patient seems to suggest it showed a narrowing or stricture in the duodenal or ileal area. - Patient felt that some fatty acid chain enemas helped w/ the rectal pain the most before, but this appears to be an outpt Tx. - Ativan q6 alt w Zofran q6 (so she gets something q3) prn nausea - Dilaudid 1 mg IV q3hrs scheduled (takes oxycodone q4 more or less scheduled r ecently at home) and 2 mg q2hrs prn for breakthrough pain --> will consider transitioning back to scheduled oral pain meds (with IV pain meds for breakthrough only) on Thursday - TDF patch 75 mcg q3d - hydration often helps POTS physiology which then helps with pain/nausea 2) Acute dehydration - IV fluids, TPN once she's doing better, may expect some worsening of abdominal pain with restarting TPN - Continue clear liquids today now that pain is better 3) Transaminitis - AST, 54; ALT, 65 - uncertain etiology, trend CMP daily - seems likely to be TPN-related, quick lit search suggests that choline deficiency or excessive fat, carbohydrate, or calorie intake may cause this - less likely to be medicine-related as nothing on med list is obvious culprit 4) Severe protein-calorie malnutrition - monitoring - TProt, 5.9, L; Albumin, 3.7; Globulin, 2.2, L - Mg, 1.7; P, 3.5 - TPN w/out electrolytes started tonight, TPN w/ electrolytes will be started tomorrow - Mg and P ordered for tomorrow, - CMP pending, jacker said pt needs to be off TPN for 24 hrs, placed lab orders for CMP at 20:00 each day 5) Visceral hyperalgesia chronic pain management, supportive care, outpt surgery and pain management follow up - see above 6) Seizure-like activity PNES from pain 7) Endometriosis - norethindrone, 0.35 mg, PO, qAM (patient's own oral contraceptive) during hospital stay 8) Hypokalemia - K, 3.7 <-- 3.3 <-- 3.0 <-- 2.7 - CMP ordered for 20:00 today - pt given 40 mEq KCl, IV, today and 40 mEq KCl, PO, BID yesterday - oral KCl pills do not work/are not absorbed/come out of ileostomy bag whole --> could consider KCl, oral, powder - pt ordered and given 40 mEq KCl, IV, today 9) TPN Feedings - current feeding time from day 1, 21:00 - day 2, 15:00 w/ 6-hour daily window from 15:00 - 21:00 each day - TPN will perturb lab values, make them meaningless, will schedule labs to be taken at 20:00 each day 5) POTS (postural orthostatic tachycardia syndrome)/Adrenal insufficiency IV fluids, steroids--fludrocortisone and hydrocortisone Code status: Full code Dispo: Med-Tele FENGI: Clear liquids diet, TPN when improving VTE Prophylaxis: ambulation Admission and Anticipated Discharge Date Admission Date: April 06, 2024 Supervising Physician Co-Signing Physician Notes I personally examined the patient and verified solorzano points of history and exam, discussed case, and agree with decision making and plan documented by Dr. Ceja. Patient states acute exacerbation on chronic multifactorial abdominal pain. Currently working with patient to transition her back to oral regimen when she is ready. Pain elevated today, patient with episode of vasovagal-nonepileptiform seizure during evaluation due to pain lasting approximately 1 minute. Reviewed hope to return to PO/TD medications so patient can attend appointment on Thursday. Patient on TPN, monitoring labs appropriately, script signed to resume home TPN. Mother present at bedside. Continue to support. Subjective Patient seen this morning, after once again last night having had a PNES-type seizure. Patient beginning to have breakthrough pain routinely again after the adjustment in her pain med regimen, states that it's not always constant, though, oscillating between a 5 and an 8. Is still taking Zofran and Ativan for nausea and Dilaudid for her scheduled and PRN pain dosing. The pain the patient is continuing to have is rectal stump pain along w/ increased persistent RUQ pain (12/25). No longer any rectal stump discharge though. Patient will need her home health TPN ordered through [facility] and patient and patient's mother kind enough to provide contact info. [phone] (fax) Review of Systems Review of Systems: Per HPI. Constitutional: no fever and no chills Respiratory: no cough and no dyspnea Cardiovascular: no chest pain and no palpitations Gastrointestinal: + abdominal pain and + nausea (last nigh t, but resolved this morning); no vomiting and no change in bowel habits Genitourinary: no dysuria and no urinary frequency Physical Exam Constitutional: WD/WN, vitals as above Respiratory: normal respiratory effort, lungs clear to auscultation Cardiovascular: RRR, no murmur, no edema Extremities: normal capillary refill; no calf tenderness and no pedal edema Gastrointestinal (Abdomen): Inspection/Auscultation: normal bowel sounds Percussion/Palpation: + abdomen tender (RUQ and epigastric pain present w/ palpation) Psychiatric: A+Ox3, euthymic affect Results & Data Results & Data Vital Signs (Past 12 Hours) Vital Signs Temp Pulse Pulse Resp BP Pulse Ox O2 Del Method 04/16/24 03:09 36.6 C 75 18 115/75 95 Room Air 04/15/24 23:36 36.4 C L 103 H 16 126/89 96 Room Air 04/15/24 21:45 105 H 04/15/24 19:50 36.7 C 115 H 20 113/78 97 Room Air Resident Activity Tracking Resident Involvement: Resident Care Provided Care Provided: Adult [facility] Medicine
[2024-04-16 07:09] LABS: Calcium 8.4 mg/dl (8.6-10.3); Creatinine Clr Calc Pharmacy 151.2 ml/min; Potassium 3.5 mmol/L (3.5-5.1)
[2024-04-16 20:17] LABS: Albumin Globulin Ratio 1.9 (0.9-2); Albumin Level 4.3 gm/dl (3.4-5.0); BUN Creatinine Ratio 26.2 (10-20); Bilirubin,Total 0.3 mg/dl (0.2-1.0); Calcium 9.2 mg/dl (8.6-10.3); Creatinine Clr Calc Pharmacy 123.9 ml/min; Globulin 2.3 gm/dl (2.5-4.0); Magnesium 1.9 mg/dl (1.7-2.4); Phosphorus 3.6 mg/dl (2.5-4.9); Potassium 3.7 mmol/L (3.5-5.1); Total Protein 6.6 gm/dl (6.0-8.3)
[2024-04-16] MEDS: [UNRECOGNIZED DRUG - OTHER] IV SCH (21:08)
[2024-04-16] MEDS: CENTRAL TPN IV SCH (21:08)
[2024-04-17 07:40] LABS: Albumin Globulin Ratio 1.7 (0.9-2); Albumin Level 3.6 gm/dl (3.4-5.0); Bilirubin Direct 0.1 mg/dl (0-0.2); Bilirubin,Total 0.3 mg/dl (0.2-1.0); Calcium 8.4 mg/dl (8.6-10.3); Creatinine Clr Calc Pharmacy 151.2 ml/min; Globulin 2.1 gm/dl (2.5-4.0); Magnesium 2.2 mg/dl (1.7-2.4); Phosphorus 3.2 mg/dl (2.5-4.9); Potassium 3.6 mmol/L (3.5-5.1); Total Protein 5.7 gm/dl (6.0-8.3)
--- NOTE | 2024-04-17 10:08 | Hospitalist Progress Note ---
Date of Service April 17, 2024 Assessment & Plan (1) Visceral hyperalgesia: (2) Severe protein-calorie malnutrition: (3) On total parenteral nutrition (TPN): (4) POTS (postural orthostatic tachycardia syndrome): (5) Seizure-like activity: Plan Pt is a 34 yo F with PMHx of gastroparesis with chronic abdominal pain s/p PEG and ostomy, hx SMA syndrome s/p multiple abdominal surgeries (appendectomy, cholecystectomy, hysterectomy, colectomy, and more), chronic pain syndrome (at times requiring ketamine), 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 1) Abdominal pain, acute on chronic - RUQ more than epigastric to clarify - ddx being motility, adhesional, SMA obstruction --> no imaging done here, recent imaging at [facility], see below - continue supportive care for now - Patient has had small bowel follow-through series as outpt at [facility] that showed an abnormality, but the surgeon is out of country and has not F/U w/ surgeon since that time. Patient seems to suggest it showed a narrowing or stricture in the duodenal or ileal area. - Patient felt that some fatty acid chain enemas helped w/ the rectal pain the most before, but this appears to be an outpt Tx. - Ativan q6 alt w Zofran q6 (so she gets something q3) prn nausea - Dilaudid 1 mg IV q3hrs scheduled (takes oxycodone q4 more or less scheduled re cently at home) and 2 mg q2hrs prn for breakthrough pain --> will consider transitioning back to scheduled oral pain meds (with IV pain meds for breakthrough only) on Thursday - TDF patch 75 mcg q3d - hydration often helps POTS physiology which then helps with pain/nausea 2) Acute dehydration - IV fluids, TPN once she's doing better, may expect some worsening of abdominal pain with restarting TPN - Continue clear liquids today now that pain is better 3) Transaminitis #resolved - AST, 33 <-- 54; ALT, 50 <-- 65 - uncertain etiology, trend CMP daily - seems likely to be TPN-related, quick lit search suggests that choline deficiency or excessive fat, carbohydrate, or calorie intake may cause this - less likely to be medicine-related as nothing on med list is obvious culprit 4) Severe protein-calorie malnutrition - monitoring - TProt, 5.7, L; Albumin, 3.6; Globulin, 2.1, L - Mg, 2.2; P, 3.3 - TPN w/ electrolytes started - Mg, P, and CMP ordered daily 5) Visceral hyperalgesia chronic pain management, supportive care, outpt surgery and pain management follow up - see above 6) Seizure-like activity PNES from pain 7) Endometriosis - norethindrone, 0.35 mg, PO, qAM (patient's own oral contraceptive) during hospital stay 8) Hypokalemia #resolved - K, 3.6 <-- 3.3 <-- 3.0 <-- 2.7 - CMP daily in AM - oral KCl pills do not work/are not absorbed/come out of ileostomy bag whole --> could consider KCl, oral, powder - if K low again, replete w/ KCl, IV 9) TPN Feedings - current feeding time from day 1, 21:00 - day 2, 15:00 w/ 6-hour daily window from 15:00 - 21:00 each day - TPN continues daily, home health [facility] to order outpt TPN 10) POTS (postural orthostatic tachycardia syndrome)/Adrenal insufficiency IV fluids, steroids--fludrocortisone and hydrocortisone Code status: Full code Dispo: Med-Tele FENGI: Clear liquids diet, TPN when improving VTE Prophylaxis: ambulation Admission and Anticipated Discharge Date Admission Date: April 06, 2024 Supervising Physician Co-Signing Physician Notes I personally examined the patient and verified solorzano points of history and exam, discussed case, and agree with decision making and plan documented by Dr. Ceja. Patient states acute exacerbation on chronic multifactorial abdominal pain. Patient endorses stability in pain control, reviewed MME inpatient similar to outpatient. Patient working on changing Thursday transplant appt to telehealth. Subjective Patient seen this morning, after once again last night having had a PNES-type seizure. Patient beginning to have breakthrough pain routinely again after the adjustment in her pain med regimen, states that it's not always constant, though, oscillating between a 5 and an 8. Is still taking Zofran and Ativan for nausea and Dilaudid for her scheduled and PRN pain dosing. The pain the patient is continuing to have is rectal stump pain along w/ increased persistent RUQ pain (12/25). No longer any rectal stump discharge though. Patient will need her home health TPN ordered through [facility] and patient and patient's mother kind enough to provide contact info. [phone] (fax) Review of Systems Review of Systems: Per HPI. Constitutional: no fever and no chills Respiratory: no cough and no dyspnea Cardiovascular: no chest pain Gastrointestinal: + abdominal pain and + nausea (last nigh t, but resolved this morning); no vomiting and no change in bowel habits Genitourinary: no dysuria and no urinary frequency Physical Exam Constitutional: WD/WN, vitals as above Respiratory: normal respiratory effort, lungs clear to auscultation Cardiovascular: RRR, no murmur, no edema Extremities: normal capillary refill; no calf tenderness and no pedal edema Gastrointestinal (Abdomen): Percussion/Palpation: + abdomen tender (RUQ and epigastric pain present w/ palpation) Psychiatric: A+Ox3, euthymic affect Results & Data Results & Data Vital Signs (Past 12 Hours) Vital Signs Temp Pulse Pulse Resp BP Pulse Ox O2 Del Method 04/17/24 08:03 73 04/17/24 07:54 36.5 C 76 16 110/78 96 Room Air 04/17/24 03:59 36.8 C 85 18 111/72 93 Room Air 04/16/24 23:13 36.8 C 102 H 18 133/91 96 Room Air
--- NOTE | 2024-04-17 15:20 | Pharmacy Report ---
Pharmacy PN Follow-up Note - Date of Service April 17, 2024 - Subjective Patient is currently on day #5 of TPN for chronic home use for SMA syndrome and gastroparesis. - Objective Height & Weight (Last Documented) Height 5 ft 6 in Weight 64.3 kg Diet Order(s) 04/06/24 Dinner Diet Intake & Ouput (24hrs) 04/16/24 04/17/24 04/18/24 06:59 06:59 06:59 Intake Total 2672.867 / 2672.867 1110 / 1110 Balance 2672.867 / 2672.867 1110 / 1110 Selected Laboratory Results 04/16/24 04/17/24 04/17/24 19:38 05:30 06:48 Sodium 139 Cancelled 139 Potassium 3.7 Cancelled 3.6 Chloride 104 Cancelled 104 Carbon Dioxide 29 Cancelled 29 Anion Gap 6 Cancelled 6 BUN 16 Cancelled 19 Creatinine 0.61 Cancelled 0.50 L BUN/Creatinine Ratio 26.2 H Cancelled 38.0 H Glucose 109 H Cancelled 131 H Calcium 9.2 Cancelled 8.4 L Phosphorus 3.6 Cancelled 3.2 Magnesium 1.9 Cancelled 2.2 Total Bilirubin 0.3 Cancelled 0.3 AST 54 H Cancelled 33 ALT 65 H Cancelled 50 Alkaline Phosphatase 60 Cancelled 56 Triglycerides Cancelled 217 H - Assessment & Plan Assessment: * Yesterday changed TPN to have a similar formulation to her previous TPNs * Potassium trending low, slightly increased potassium content, no other changes * Held lipids due to elevated triglycerides and per patient request over the weekend. Plan: * For Day #5 of TPN administration, the following will be ordered: * Macronutrients: * Amino Acids: 80 grams/day * Dextrose: 140 grams/day * Lipids: -- grams/day * Micronutrients: * Sodium phosphate: 9 mMol/day * Sodium chloride: 80 mEq/day * Potassium acetate: 80 mEq/day * Magnesium sulfate: 12.18 mEq/day * Calcium gluconate: 9.3 mEq/day * Thiamine: 100 mg/day * Total volume of 1099 mL will be infused over 18 hours and will provide 796 kcal/day * Labs will be ordered per PN protocol. * Pharmacy will follow and adjust PN orders on a daily basis. Thank you!
[2024-04-17] MEDS: CENTRAL TPN IV SCH (21:51)
[2024-04-17] MEDS: [UNRECOGNIZED DRUG - OTHER] IV SCH (21:51)
[2024-04-18 06:02] LABS: Albumin Level 3.8 gm/dl (3.4-5.0); Bilirubin,Total 0.3 mg/dl (0.2-1.0); Calcium 8.5 mg/dl (8.6-10.3); Creatinine Clr Calc Pharmacy 148.2 ml/min; Globulin 1.9 gm/dl (2.5-4.0); Magnesium 2.2 mg/dl (1.7-2.4); Potassium 3.8 mmol/L (3.5-5.1); Total Protein 5.7 gm/dl (6.0-8.3)
--- NOTE | 2024-04-18 06:42 | Hospitalist Progress Note ---
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 1) Abdominal pain, acute on chronic - RUQ more than epigastric to clarify, continue supportive care for now - ddx being motility, adhesional, SMA obstruction --> no imaging done here, recent imaging at [facility], see below - Patient has had small bowel follow-through series as outpt at [facility] that showed an abnormality, but the surgeon is out of country and has not F/U w/ surgeon since that time. Patient seems to suggest it showed a narrowing or stricture in the duodenal or ileal area. - Patient felt that some fatty acid chain enemas helped w/ the rectal pain the most before, but this appears to be an outpt Tx. - Ativan, q6hrs alt w Zofran q6hrs (so she gets something q3), PRN, nausea - Roxicodone, PO, 3.5 mg, q3hrs scheduled (takes oxycodone q4 more or less scheduled recently at home) and Dilaudid, 2 mg, q2hrs, PRN, for breakthrough pain --> transitioned back to oral pain meds, EMERALD (with IV pain meds for breakthrough only) today - TDF patch 75 mcg q3d - hydration often helps POTS physiology which then helps with pain/nausea 2) Acute dehydration - IV fluids, TPN once she's doing better, may expect some worsening of abdominal pain with restarting TPN - Continue clear liquids today now that pain is better 3) Transaminitis - AST, 35 <-- 54; ALT, 69 (H) <-- 50 <-- 65 - mild partial elevation, continue to trend CMP daily - likely to be TPN-related, quick lit search and colleague discussion suggests excessive fat/carbohydrate/calorie intake may be cause - less likely to be medicine-related as nothing on med list is obvious culprit 4) Severe protein-calorie malnutrition - monitoring, TPN w/ electrolytes started - TProt, 5.7, L; Albumin, 3.8; Globulin, 1.9, L - Mg, 2.2; P, 3.0 - Mg, P, and CMP ordered daily 5) Visceral hyperalgesia chronic pain management, supportive care, outpt surgery and pain management follow up - see above 6) Seizure-like activity PNES from pain 7) Endometriosis - norethindrone, 0.35 mg, PO, qAM (patient's own oral contraceptive) during hospital stay 8) Hypokalemia #resolved, if K low again, replete w/ KCl, IV - K, 3.8 <-- 3.3 <-- 3.0 <-- 2.7 - CMP daily in AM - oral KCl pills are not absorbed/come out of ileostomy bag whole could consider KCl, oral, powder 9) TPN Feedings - current feeding time from day 1, 21:00 - day 2, 15:00 w/ 6-hour daily window from 15:00 - 21:00 each day - TPN continues daily, home health [facility] to order outpt TPN 10) POTS (postural orthostatic tachycardia syndrome)/Adrenal insufficiency IV fluids, steroids--fludrocortisone and hydrocortisone Code status: Full code Dispo: Med-Tele FENGI: Clear liquids diet, TPN when improving VTE Prophylaxis: ambulation Admission and Anticipated Discharge Date Admission Date: April 06, 2024 Supervising Physician Co-Signing Physician Notes I personally examined the patient and verified all solorzano points of history and exam, discussed case, and agree with decision making with Dr Ceja feeling better with slow progress. Hopeful to get home in the next few days. Pain still present but improving. Vitals noted, in general she is awake and alert oriented pleasant appears far less ill than whenever I last saw her. Breathing unlabored no accessory muscle use good effort. Abdomen still has left upper abdominal tenderness but far less exquisite than before. No guarding rebound or rigidity. Acute on chronic abdominal pain/visceral hyperalgesia/SMA syndrome/adhesionssuspect pain currently is predominantly a combination of adhesions and visceral. hyperalgesia. Continue to slowly work back towards outpatient pain regimen. Subjective Patient seen this morning, after once again last night having had a PNES-type seizure. Patient beginning to have breakthrough pain routinely again after the adjustment in her pain med regimen, states that it's not always constant, though, oscillating between a 5 and an 8. Is still taking Zofran and Ativan for nausea and Dilaudid for her scheduled and PRN pain dosing. The pain the patient is continuing to have is rectal stump pain along w/ increased persistent RUQ pain (/10). No longer any rectal stump discharge though. Patient will need her home health TPN ordered through [facility] and patient and patient's mother kind enough to provide contact info. [phone] (fax) Patient is amenable to transitioning to oral Roxicodone (oxycodone) solution for scheduled pain meds this morning, while maintaining the Dilaudid, 2 mg, IV, q2hrs, for breakthrough pain. Patient is wanting to leave the hospital in 2-3 days and is eager to go, but just wants to get her pain under control and transitioned back to oral meds before leaving. Review of Systems Review of Systems: Per HPI. Constitutional: no fever and no chills Respiratory: no cough and no dyspnea Cardiovascular: no chest pain Gastrointestinal: + abdominal pain and + nausea (last nigh t, but resolved this morning); no vomiting and no change in bowel habits Genitourinary: no dysuria and no urinary frequency Physical Exam Constitutional: WD/WN, vitals as above Respiratory: normal respiratory effort, lungs clear to auscultation Cardiovascular: RRR, no murmur, no edema Extremities: normal capillary refill; no calf tenderness and no pedal edema Gastrointestinal (Abdomen): Inspection/Auscultation: normal bowel sounds Percussion/Palpation: + abdomen tender (RUQ and epigastric pain present w/ palpation) Psychiatric: A+Ox3, euthymic affect Results & Data Results & Data Vital Signs (Past 12 Hours) Vital Signs Temp Pulse Pulse Resp BP Pulse Ox O2 Del Method 04/18/24 03:49 36.8 C 74 18 116/80 98 Room Air 04/17/24 23:20 37.2 C 89 18 136/94 96 Room Air 04/17/24 22:45 Room Air 04/17/24 21:40 82 04/17/24 19:52 36.7 C 89 16 130/86 96 Room Air
[2024-04-18] MEDS: oxyCODONE HCL SOLN 5 MG/5 ML UDC PO PRN (12:06)
--- NOTE | 2024-04-18 18:55 | Billing Data ---
Date of Service April 18, 2024 Coding Level of Care Code 15365 SUB INP/OBS CARE
[2024-04-18] MEDS: CENTRAL TPN IV SCH (21:10)
[2024-04-18] MEDS: [UNRECOGNIZED DRUG - OTHER] IV SCH (21:10)
--- NOTE | 2024-04-19 06:41 | Hospitalist Progress Note ---
Date of Service April 19, 2024 Assessment & Plan (1) Visceral hyperalgesia: (2) Severe protein-calorie malnutrition: (3) On total parenteral nutrition (TPN): (4) POTS (postural orthostatic tachycardia syndrome): (5) Seizure-like activity: Plan Pt is a 34 yo F with PMHx of gastroparesis with chronic abdominal pain s/p PEG and ostomy, hx SMA syndrome s/p multiple abdominal surgeries (appendectomy, cholecystectomy, hysterectomy, colectomy, and more), chronic pain syndrome (at times requiring ketamine), 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 1) Abdominal pain, acute on chronic - RUQ more than epigastric to clarify, continue supportive care for now - ddx being motility, adhesional, SMA obstruction --> no imaging done here, recent imaging at [facility], see below - Patient has had small bowel follow-through series as outpt at [facility] that showed an abnormality, but the surgeon is out of country and has not F/U w/ surgeon since that time. Patient seems to suggest it showed a narrowing or stricture in the duodenal or ileal area. - Patient felt that some fatty acid chain enemas helped w/ the rectal pain the most before, but this appears to be an outpt Tx. - Ativan, q6hrs alt w Zofran q6hrs (so she gets something q3), PRN, nausea - Roxicodone, PO, 3.5 mg, q3hrs scheduled (takes oxycodone q4 more or less scheduled recently at home) and Dilaudid, 2 mg, q2hrs, PRN, for breakthrough pain --> transitioned back to oral pain meds, EMERALD (with IV pain meds for breakthrough only) today - TDF patch 75 mcg q3d - hydration often helps POTS physiology which then helps with pain/nausea 2) Acute dehydration - IV fluids, TPN once she's doing better, may expect some worsening of abdominal pain with restarting TPN - Continue clear liquids today now that pain is better 3) Transaminitis - AST, 26 <-- 35 <-- 54; ALT, 67 (H) <-- 69 <-- 50 <-- 65 - mild partial elevation, continue to trend CMP daily - likely to be TPN-related, quick lit search and colleague discussion suggests excessive fat/carbohydrate/calorie intake may be cause - less likely to be medicine-related as nothing on med list is obvious culprit 4) Severe protein-calorie malnutrition - monitoring, TPN w/ electrolytes started - TProt, 5.5, L; Albumin, 3.4; Globulin, 2.1, L; TriGly, 175 - Mg, 2.3; P, 3.1 - Mg, P, and CMP ordered daily 5) Visceral hyperalgesia chronic pain management, supportive care, outpt surgery and pain management follow up - see above 6) Seizure-like activity PNES from pain 7) Endometriosis - norethindrone, 0.35 mg, PO, qAM (patient's own oral contraceptive) during hospital stay 8) Hypokalemia #resolved, if K low again, replete w/ KCl, IV - K, 3.8 <-- 3.3 <-- 2.7 - CMP daily in AM - oral KCl pills are not absorbed/come out of ileostomy bag whole could consider KCl, oral, powder 9) TPN Feedings - current feeding time from day 1, 21:00 - day 2, 15:00 w/ 6-hour daily window from 15:00 - 21:00 each day - TPN continues daily, home health [facility] to order outpt TPN 10) POTS (postural orthostatic tachycardia syndrome)/Adrenal insufficiency IV fluids, steroids--fludrocortisone and hydrocortisone Code status: Full code Dispo: Med-Tele FENGI: Clear liquids diet, TPN when improving VTE Prophylaxis: ambulation Admission and Anticipated Discharge Date Admission Date: April 06, 2024 Supervising Physician Co-Signing Physician Notes I personally examined the patient and verified all solorzano points of history and exam, discussed case, and agree with decision making with Dr Ceja Tried to move to oral pain medicines yesterday but then had a bad pain day. Feels like she is not continuing to be behinddoes need a dose of IV pain medicine as we speak, but otherwise feels like she is progressing reasonably well on oral pain medications. Vitals noted, in general she is awake and alert oriented fatigued appearing, mildly uncomfortable but no severe distress. Breathing unlabored no accessory muscle use good effort. skin without rashes pallor or icterus, no focal neurodeficits Acute on chronic abdominal pain/visceral hyperalgesia/SMA syndrome/adhesionssuspect pain currently is predominantly a combination of adhesions and visceral hyperalgesia. Continue to slowly work back towards outpatient pain regimen. transitioning from IV to p.o. yesterday/todayhopefully home soon. Has outpatient follow-up with her surgeon in [place] next week, will continue to discuss ongoing outpatient pain management follow-up as well given that spinal cord stimulator trial showed promise Subjective Patient seen this morning, after once again last night having had a PNES-type seizure. Patient beginning to have breakthrough pain routinely again after the adjustment in her pain med regimen, states that it's not always constant, though, oscillating between a 5 and an 8. Is still taking Zofran and Ativan for nausea and Dilaudid for her scheduled and PRN pain dosing. The pain the patient is continuing to have is rectal stump pain along w/ increased persistent RUQ pain (7/10). No longer any rectal stump discharge though. Patient will need her home health TPN ordered through [facility] and patient and patient's mother kind enough to provide contact info. [phone] (fax) Patient is amenable to transitioning to oral Roxicodone (oxycodone) solution for scheduled pain meds again this morning, while maintaining the Dilaudid, 2 mg, IV, q2hrs, for breakthrough pain. Patient is wanting to leave the hospital in 2- 3 days and is eager to go, but just wants to get her pain under control and transitioned back to oral meds before leaving. Review of Systems Review of Systems: Per HPI. Constitutional: no fever and no chills Respiratory: no cough and no dyspnea Cardiovascular: no chest pain Gastrointestinal: + abdominal pain and + nausea (last nigh t, but resolved this morning); no vomiting and no change in bowel habits Genitourinary: no dysuria and no urinary frequency Physical Exam Constitutional: WD/WN, vitals as above Respiratory: normal respiratory effort, lungs clear to auscultation Cardiovascular: RRR, no murmur, no edema Extremities: normal capillary refill; no calf tenderness and no pedal edema Gastrointestinal (Abdomen): Inspection/Auscultation: normal bowel sounds Percussion/Palpation: + abdomen tender (RUQ and epigastric pain present w/ palpation) Psychiatric: A+Ox3, euthymic affect Results & Data Results & Data Vital Signs (Past 12 Hours) Vital Signs Temp Pulse Pulse Resp BP Pulse Ox O2 Del Method 04/19/24 04:12 37.1 C 71 20 131/88 96 Room Air 04/18/24 23:52 36.6 C 85 20 138/92 95 Room Air 04/18/24 22:14 92 H 04/18/24 20:07 36.7 C 87 20 131/87 96 Room Air Resident Activity Tracking Resident Involvement: Resident Care Provided Care Provided: Adult Hospital Medicine
[2024-04-19 07:43] LABS: Albumin Globulin Ratio 1.6 (0.9-2); Albumin Level 3.4 gm/dl (3.4-5.0); Bilirubin,Total 0.3 mg/dl (0.2-1.0); Calcium 8.2 mg/dl (8.6-10.3); Globulin 2.1 gm/dl (2.5-4.0); Magnesium 2.3 mg/dl (1.7-2.4); Phosphorus 3.1 mg/dl (2.5-4.9); Potassium 3.8 mmol/L (3.5-5.1); Total Protein 5.5 gm/dl (6.0-8.3)
[2024-04-19] MEDS: oxyCODONE HCL SOLN 5 MG/5 ML UDC PO SCH (09:55)
--- NOTE | 2024-04-19 13:06 | Billing Data ---
Date of Service April 19, 2024 Coding Level of Care Code 35409 SUB INP/OBS CARE
[2024-04-19] MEDS: [UNRECOGNIZED DRUG - OTHER] IV SCH (21:11)
[2024-04-19] MEDS: CENTRAL TPN IV SCH (21:11)
[2024-04-20] MEDS: HYDROmorphone INJ 1 MG/ML SYRINGE IV STA (00:10)
[2024-04-20 06:02] LABS: Albumin Level 3.6 gm/dl (3.4-5.0); Bilirubin,Total 0.3 mg/dl (0.2-1.0); Calcium 8.7 mg/dl (8.6-10.3); Magnesium 2.3 mg/dl (1.7-2.4); Potassium 4.1 mmol/L (3.5-5.1)
[2024-04-20 06:08] LABS: Albumin Globulin Ratio 1.7 (0.9-2); Creatinine Clr Calc Pharmacy 137.5 ml/min; Globulin 2.1 gm/dl (2.5-4.0); Phosphorus 3.5 mg/dl (2.5-4.9); Total Protein 5.7 gm/dl (6.0-8.3)
--- NOTE | 2024-04-20 06:44 | Hospitalist Progress Note ---
Date of Service April 20, 2024 Assessment & Plan (1) Visceral hyperalgesia: (2) Severe protein-calorie malnutrition: (3) On total parenteral nutrition (TPN): (4) POTS (postural orthostatic tachycardia syndrome): (5) Seizure-like activity: Plan Pt is a 34 yo F with PMHx of gastroparesis with chronic abdominal pain s/p PEG and ostomy, hx SMA syndrome s/p multiple abdominal surgeries (appendectomy, cholecystectomy, hysterectomy, colectomy, and more), chronic pain syndrome (at times requiring ketamine), 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 1) Abdominal pain, acute on chronic - RUQ more than epigastric to clarify, continue supportive care for now - ddx being motility, adhesional, SMA obstruction --> no imaging done here, recent imaging at [facility], see below - Patient has had small bowel follow-through series as outpt at [facility] that showed an abnormality, but the surgeon is [place] of country and has not F/U w/ surgeon since that time. Patient seems to suggest it showed a narrowing or stricture in the duodenal or ileal area. - Patient felt that some fatty acid chain enemas helped w/ the rectal pain the most before, but this appears to be an outpt Tx. - Ativan, q6hrs alt w Zofran q6hrs (so she gets something q3), PRN, nausea - Consider increasing to Roxicodone, PO, 4.0 mg, q3hrs scheduled (takes oxycodone q4 more or less scheduled recently at home) today and Dilaudid, 2 mg, q2hrs, PRN, for breakthrough pain --> transitioned back to oral pain meds, EMERALD (with IV pain meds for breakthrough only) today - TDF patch 75 mcg q3d - hydration often helps POTS physiology which then helps with pain/nausea 2) Acute dehydration - IV fluids, TPN once she's doing better, may expect some worsening of abdominal pain with restarting TPN - Continue clear liquids today now that pain is better 3) Transaminitis - AST, 26 <-- 35 <-- 54; ALT, 70 (H) <-- 50 <-- 65 - mild partial elevation, continue to trend CMP daily - likely to be TPN-related, quick lit search and colleague discussion suggests excessive fat/carbohydrate/calorie intake may be cause - less likely to be medicine-related as nothing on med list is obvious culprit 4) Severe protein-calorie malnutrition - monitoring, TPN w/ electrolytes started - Pharmacy alerted me that they will be running out of TPN bags this weekend, wont' get more until May - TProt, 5.7, L; Albumin, 3.6; Globulin, 2.1, L; TriGly, 176 - Mg, 2.3; P, 3.5 - Mg, P, and CMP ordered daily 5) Visceral hyperalgesia chronic pain management, supportive care, outpt surgery and pain management follow up - see above 6) Seizure-like activity PNES from pain 7) Endometriosis - norethindrone, 0.35 mg, PO, qAM (patient's own oral contraceptive) during hospital stay 8) Hypokalemia #resolved, if K low again, replete w/ KCl, IV - K, 4.1 <-- 3.3 <-- 2.7 - CMP daily in AM - oral KCl pills are not absorbed/come out of ileostomy bag whole could consider KCl, oral, powder 9) TPN Feedings - current feeding time from day 1, 21:00 - day 2, 15:00 w/ 6-hour daily window from 15:00 - 21:00 each day - TPN continues daily, home health [facility] to order outpt TPN 10) POTS (postural orthostatic tachycardia syndrome)/Adrenal insufficiency IV fluids, steroids--fludrocortisone and hydrocortisone Code status: Full code Dispo: Med-Tele FENGI: Clear liquids diet, TPN when improving VTE Prophylaxis: ambulation Admission and Anticipated Discharge Date Admission Date: April 06, 2024 Supervising Physician Co-Signing Physician Notes I personally examined the patient and verified all solorzano points of history and exam, discussed case, and agree with decision making with Dr Ceja like she got a little bit behind on pain medicines but is starting to do better again. Vitals noted, in general she is awake and alert oriented fatigued appearing, no severe distress. Breathing unlabored no accessory muscle use good effort. skin without rashes pallor or icterus, no focal neurodeficits Acute on chronic abdominal pain/visceral hyperalgesia/SMA syndrome/adhesionssuspect pain currently is predominantly a combination of adhesions and visceral hyperalgesia. Continue to slowly work back towards outpatient pain regimen. transitioning from IV to p.o. yesterday/today to try to assist in this we will increase her oral dosing and schedule a bedtime dose of Dilaudid. hopefully home soon. Has outpatient follow-up with her surgeon in [place] next week, will continue to discuss ongoing outpatient pain management follow-up as well given that spinal cord stimulator trial showed promise Subjective Patient seen this morning, after once again last night having had a PNES-type seizure. Patient beginning to have breakthrough pain routinely again after the adjustment in her pain med regimen, states that it's not always constant, though, oscillating between a 5 and an 8. Is still taking Zofran and Ativan for nausea and Dilaudid for her scheduled and PRN pain dosing. The pain the patient is continuing to have is rectal stump pain along w/ increased persistent RUQ pain (7/10). No longer any rectal stump discharge though. Patient will need her home health TPN ordered through [facility] and patient and patient's mother kind enough to provide contact info. [phone] (fax) Patient is still amenable to continuing the oral Roxicodone (oxycodone) solution for scheduled pain meds, while maintaining the Dilaudid, 2 mg, IV, q2hrs, for breakthrough pain, despite having had 2-3 seizures the past few days. Patient is wanting to leave the hospital in 2-3 days and is eager to go, but just wants to get her pain under control and transitioned back to oral meds before leaving. Patient states she is amenable to whatever plan we come up with for her. Review of Systems Review of Systems: Per HPI. Constitutional: no fever and no chills Respiratory: no cough and no dyspnea Cardiovascular: no chest pain and no palpitations Gastrointestinal: + abdominal pain and + nausea (intermitt ent nausea); no vomiting and no change in bowel habits Genitourinary: no dysuria and no urinary frequency Physical Exam Constitutional: WD/WN, vitals as above Respiratory: normal respiratory effort, lungs clear to auscultation Cardiovascular: RRR, no murmur, no edema Extremities: normal capillary refill; no calf tenderness and no pedal edema Gastrointestinal (Abdomen): Inspection/Auscultation: normal bowel sounds Percussion/Palpation: + abdomen tender (RUQ and epigastric pain present w/ palpation) Psychiatric: A+Ox3, euthymic affect Results & Data Results & Data Vital Signs (Past 12 Hours) Vital Signs Temp Pulse Pulse Resp BP Pulse Ox O2 Del Method 04/20/24 04:06 36.4 C L 63 14 117/79 97 Room Air 04/19/24 23:58 36.5 C 88 20 139/91 98 Room Air 04/19/24 22:42 36.7 C 100 H 16 153/100 H 99 Room Air 04/19/24 21:57 107 H 04/19/24 21:40 Room Air 04/19/24 19:44 36.5 C 96 H 16 144/97 H 96 Room Air
[2024-04-20] MEDS: oxyCODONE HCL SOLN 5 MG/5 ML UDC PO SCH (16:01)
--- NOTE | 2024-04-20 16:58 | Billing Data ---
Date of Service April 20, 2024 Coding Level of Care Code 73400 SUB INP/OBS CARE
[2024-04-20] MEDS: CENTRAL TPN IV SCH (20:50)
[2024-04-20] MEDS: [UNRECOGNIZED DRUG - OTHER] IV SCH (20:50)
[2024-04-20] MEDS: HYDROmorphone INJ 1 MG/ML SYRINGE IV SCH (20:55)
[2024-04-21 06:47] LABS: Albumin Globulin Ratio 1.6 (0.9-2); Albumin Level 3.6 gm/dl (3.4-5.0); Bilirubin,Total 0.3 mg/dl (0.2-1.0); Calcium 8.7 mg/dl (8.6-10.3); Creatinine Clr Calc Pharmacy 147.1 ml/min; Globulin 2.3 gm/dl (2.5-4.0); Magnesium 2.2 mg/dl (1.7-2.4); Phosphorus 3.9 mg/dl (2.5-4.9); Potassium 4.1 mmol/L (3.5-5.1); Total Protein 5.9 gm/dl (6.0-8.3)
--- NOTE | 2024-04-21 06:48 | Hospitalist Progress Note ---
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 1) Abdominal pain, acute on chronic - RUQ more than epigastric to clarify, continue supportive care for now - ddx being motility, adhesional, SMA obstruction --> no imaging done here, recent imaging at [facility], see below - Patient has had small bowel follow-through series as outpt at [facility] that showed an abnormality, but the surgeon is out of country and has not F/U w/ surgeon since that time. Patient seems to suggest it showed a narrowing or stricture in the duodenal or ileal area. - Ativan, q6hrs alt w Zofran q6hrs (so she gets something q3), PRN, nausea - Increased to Roxicodone, PO, 4.5 mg, q3hrs scheduled (takes oxycodone q4 more or less scheduled recently at home) yesterday and continued Dilaudid, 2 mg, q2hrs, PRN, for breakthrough pain --> transitioning back to oral pain meds, EMERALD (with IV pain meds for breakthrough only) today - one Dilaudid, IV, 1 mg, qHS dose to get ahead of pain Tx before falling behind while pt is sleeping (consider 2 mg tonight) - TDF patch 75 mcg q3d - hydration often helps POTS physiology which then helps with pain/nausea Outpatient Potential Therapies - Patient felt that some fatty acid chain enemas helped w/ the rectal pain the most before, but this appears to be an outpt Tx. - Patient is also considering use of a SCS (spinal cord stimulator) as an outpatient to find a way to decrease her opioid reliance 2) Acute dehydration - IV fluids, TPN once she's doing better, may expect some worsening of abdominal pain with restarting TPN - Continue clear liquids today now that pain is better 3) Transaminitis - AST, 27 <-- 35 <-- 54; ALT, 77 (H) <-- 50 <-- 65 - mild partial elevation, continue to trend CMP daily - likely to be TPN-related, quick lit search and colleague discussion suggests excessive fat/carbohydrate/calorie intake may be cause - less likely to be medicine-related as nothing on med list is obvious culprit 4) Severe protein-calorie malnutrition - monitoring, TPN w/ electrolytes started - Pharmacy alerted me that they will be running out of TPN bags this weekend, wont' get more until May - TProt, 5.9, L; Albumin, 3.6; Globulin, 2.3, L; TriGly, 181 - Mg, 2.2; P, 3.9 - Mg, P, and CMP ordered daily 5) Visceral hyperalgesia chronic pain management, supportive care, outpt surgery and pain management follow up - see above 6) Seizure-like activity PNES from pain 7) Endometriosis - norethindrone, 0.35 mg, PO, qAM (patient's own oral contraceptive) during hospital stay 8) Hypokalemia #resolved, if K low again, replete w/ KCl, IV - K, 4.1 <-- 3.3 <-- 2.7 - CMP daily in AM - oral KCl pills are not absorbed/come out of ileostomy bag whole could consider KCl, oral, powder 9) TPN Feedings - current feeding time from day 1, 21:00 - day 2, 15:00 w/ 6-hour daily window from 15:00 - 21:00 each day - TPN continues daily, home health [facility] to order outpt TPN to have available for in pt stay (Case Mgmt notified) 10) POTS (postural orthostatic tachycardia syndrome)/Adrenal insufficiency IV fluids, steroids--fludrocortisone and hydrocortisone Code status: Full code Dispo: Med-Tele FENGI: Clear liquids diet, TPN when improving VTE Prophylaxis: ambulation Admission and Anticipated Discharge Date Admission Date: April 06, 2024 Supervising Physician Co-Signing Physician Notes I personally examined the patient and verified all solorzano points of history and exam, discussed case, and agree with decision making with Dr Ceja pain worse again today. Vitals noted, in general she is awake and alert oriented fatigued appearing, no severe distress. Breathing unlabored no accessory muscle use good effort. abd soft mod RUQ and mild diffuse tenderness worse than earlier this week but not as severe as day of admission. skin without rashes pallor or icterus, no focal neurodeficits Acute on chronic abdominal pain/visceral hyperalgesia/SMA syndrome/adhesionssuspect pain currently is predominantly a combination of adhesions and visceral hyperalgesia. fall back on IV pain regimen for now hold PO pain meds, give GI tract rest, hopefully get ahead of pain again. Subjective Patient seen this morning, after once again last night having had a PNES-type seizure. Patient beginning to have breakthrough pain routinely again after the adjustment in her pain med regimen, states that it's not always constant, though, oscillating between a 5 and an 8. Is still taking Zofran and Ativan for nausea and Dilaudid for her scheduled and PRN pain dosing. The pain the patient is continuing to have is rectal stump pain along w/ increased persistent RUQ pain (7/10). No longer any rectal stump discharge though. Patient will need her home health TPN ordered through [facility] and patient and patient's mother kind enough to provide contact info. [phone] (fax) Patient is still amenable to continuing the oral Roxicodone (oxycodone) solution for scheduled pain meds, while maintaining the Dilaudid, 2 mg, IV, q2hrs, for breakthrough pain, despite having had 2-3 seizures the past few days. Patient is wanting to leave the hospital in 2-3 days and is eager to go, but just wants to get her pain under control and transitioned back to oral meds before leaving. Patient states she is amenable to whatever plan we come up with for her. Review of Systems Review of Systems: Per HPI. Constitutional: no fever and no chills Respiratory: no cough and no dyspnea Cardiovascular: no chest pain and no palpitations Gastrointestinal: + abdominal pain and + nausea (intermitt ent nausea); no vomiting and no change in bowel habits Genitourinary: no dysuria and no urinary frequency Physical Exam Constitutional: WD/WN, vitals as above Respiratory: normal respiratory effort, lungs clear to auscultation Cardiovascular: RRR, no murmur, no edema Extremities: normal capillary refill; no calf tenderness and no pedal edema Gastrointestinal (Abdomen): Inspection/Auscultation: normal bowel sounds Percussion/Palpation: + abdomen tender (RUQ and epigastric pain present w/ palpation) Psychiatric: A+Ox3, euthymic affect Results & Data Results & Data Vital Signs (Past 12 Hours) Vital Signs Temp Pulse Pulse Resp BP Pulse Ox O2 Del Method 04/21/24 04:00 36.4 C L 74 16 132/87 96 Room Air 04/20/24 23:39 36.6 C 117 H 16 144/97 H 98 Room Air 04/20/24 23:21 Room Air 04/20/24 21:46 94 H 04/20/24 20:00 36.8 C 74 16 134/94 97 Room Air Resident Activity Tracking Resident Involvement: Resident Care Provided Care Provided: Adult Hospital Medicine
[2024-04-21] MEDS: HYDROmorphone INJ 1 MG/ML SYRINGE IV STA (12:09)
[2024-04-21] MEDS ORDERED: HYDROmorphone INJ 1 MG/ML SYRINGE IV SCH (12:30)
[2024-04-21] MEDS: HYDROmorphone INJ 2 MG/ML SYR/VIAL IV STA (12:53)
[2024-04-21] MEDS ORDERED: HYDROmorphone INJ 2 MG/ML SYR/VIAL IV PRN (15:27)
[2024-04-21] MEDS: HYDROmorphone INJ 1 MG/ML SYRINGE IV SCH ×2 (16:19→17:26)
--- NOTE | 2024-04-21 17:23 | Billing Data ---
Date of Service April 21, 2024 Coding Level of Care Code 29788 SUB INP/OBS CARE
[2024-04-21] MEDS: HYDROmorphone INJ 2 MG/ML SYR/VIAL IV PRN (17:43)
[2024-04-21] MEDS: [UNRECOGNIZED DRUG - OTHER] IV SCH (22:30)
[2024-04-21] MEDS: CENTRAL TPN IV SCH (22:30)
--- NOTE | 2024-04-22 07:30 | Hospitalist Progress Note ---
Date of Service April 22, 2024 Assessment & Plan (1) Visceral hyperalgesia: (2) Severe protein-calorie malnutrition: (3) On total parenteral nutrition (TPN): (4) POTS (postural orthostatic tachycardia syndrome): (5) Seizure-like activity: Plan Pt is a 34 yo F with PMHx of gastroparesis with chronic abdominal pain s/p PEG and ostomy, hx SMA syndrome s/p multiple abdominal surgeries (appendectomy, cholecystectomy, hysterectomy, colectomy, and more), chronic pain syndrome (at times requiring ketamine), 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 1) Abdominal pain, acute on chronic - RUQ more than epigastric to clarify, continue supportive care for now - ddx being motility, adhesional, SMA obstruction --> no imaging done here, recent imaging at [facility], see below - Patient has had small bowel follow-through series as outpt at [facility] that showed an abnormality, but the surgeon is [place] of country and has not F/U w/ surgeon since that time. Patient seems to suggest it showed a narrowing or stricture in the duodenal or ileal area. - Ativan, q6hrs alt w Zofran q6hrs (so she gets something q3), PRN, nausea - Increased to Roxicodone, PO, 4.5 mg, q3hrs scheduled (takes oxycodone q4 more or less scheduled recently at home) yesterday and continued Dilaudid, 2 mg, q2hrs, PRN, for breakthrough pain --> transitioning back to oral pain meds, EMERALD (with IV pain meds for breakthrough only) today - one Dilaudid, IV, 1 mg, qHS dose to get ahead of pain Tx before falling behind while pt is sleeping (consider 2 mg tonight) - TDF patch 75 mcg q3d - hydration often helps POTS physiology which then helps with pain/nausea Outpatient Potential Therapies - Patient felt that some fatty acid chain enemas helped w/ the rectal pain the most before, but this appears to be an outpt Tx. - Patient is also considering use of a SCS (spinal cord stimulator) as an outpatient to find a way to decrease her opioid reliance 2) Acute dehydration - IV fluids, TPN once she's doing better, may expect some worsening of abdominal pain with restarting TPN - Continue clear liquids today now that pain is better 3) Transaminitis - AST, 33 <-- 35 <-- 54; ALT, 73 (H) <-- 50 <-- 65 - mild partial elevation, continue to trend CMP daily - likely to be TPN-related, quick lit search and colleague discussion suggests excessive fat/carbohydrate/calorie intake may be cause - less likely to be medicine-related as nothing on med list is obvious culprit 4) Severe protein-calorie malnutrition - monitoring, TPN w/ electrolytes started - Pharmacy alerted me that they will be running out of TPN bags this weekend, wont' get more until May - TProt, 5.6, L; Albumin, 3.6; Globulin, 2.0, L; TriGly, 181 - Mg, 2.3; P, 4.3 - Mg, P, and CMP ordered daily 5) Visceral hyperalgesia chronic pain management, supportive care, outpt surgery and pain management follow up - see above 6) Seizure-like activity PNES from pain 7) Endometriosis - norethindrone, 0.35 mg, PO, qAM (patient's own oral contraceptive) during hospital stay 8) Mild Hyperkalemia (Hypokalemia) #resolved, if K low again, replete w/ KCl, IV - K, 5.3 (likely sampling error) <-- 3.3 <-- 2.7 - CMP daily in AM - oral KCl pills are not absorbed/come out of ileostomy bag whole, could consider KCl, oral powder 9) TPN Feedings - current feeding time from day 1, 21:00 - day 2, 15:00 w/ 6-hour daily window from 15:00 - 21:00 each day - above schedule may change this weekend as they had to change TPN recipe due to TPN bag shortage - pt will now be getting TPN feedings in 2 L fluid instead of 1 L, monitor for hypervolemia - TPN continues daily, home health [facility] to order outpt TPN close to time of discharge (Case Mgmt may need re-notification) 10) POTS (postural orthostatic tachycardia syndrome)/Adrenal insufficiency IV fluids, steroids--fludrocortisone and hydrocortisone Code status: Full code Dispo: Med-Tele FENGI: Clear liquids diet, TPN when improving VTE Prophylaxis: ambulation Admission and Anticipated Discharge Date Admission Date: April 06, 2024 Supervising Physician Co-Signing Physician Notes I personally examined the patient and verified all solorzano points of history and exam, discussed case, and agree with decision making with Dr Ceja Feeling like she is starting to get ahead of the pain again. Vitals noted, in general she is awake and alert oriented upright and petting her dog, appearing in less distress. Breathing unlabored no accessory muscle use good effort. skin without rashes pallor or icterus, no focal neurodeficits Acute on chronic abdominal pain/visceral hyperalgesia/SMA syndrome/adhesionssuspect pain currently is predominantly a combination of adhesions and visceral hyperalgesia. fell back on IV pain regimen for now hold PO pain meds, give GI tract rest, hopefully get ahead of pain again. seems to be making progress again Subjective Patient seen this morning, after once again last night having had a PNES-type seizure. Patient beginning to have breakthrough pain routinely again after the adjustment in her pain med regimen, states that it's not always constant, though, oscillating between a 5 and an 8. Is still taking Zofran and Ativan for nausea and Dilaudid for her scheduled and PRN pain dosing. The pain the patient is continuing to have is rectal stump pain along w/ increased persistent RUQ pain (7/10). No longer any rectal stump discharge though. Patient will need her home health TPN ordered through [facility] and patient and patient's mother kind enough to provide contact info. [phone] (fax) Patient now back on Dialudid, IV, 2 mg, q3hrs for scheduled pain meds, while maintaining the Dilaudid, 2 mg, IV, q3hrs, for breakthrough pain. Patient did not have a seizure last night. Patient continues to want to leave the hospital in 2-3 days and is eager to go, but just wants to get her pain under control and transitioned back to oral meds before leaving. Patient continues to be amenable to whatever plan we come up with for her. Review of Systems Review of Systems: Per HPI. Constitutional: no fever and no chills Respiratory: no cough and no dyspnea Cardiovascular: no chest pain and no palpitations Gastrointestinal: + abdominal pain and + nausea (intermitt ent nausea); no vomiting and no change in bowel habits Genitourinary: no dysuria and no urinary frequency Physical Exam Constitutional: WD/WN, vitals as above Respiratory: normal respiratory effort, lungs clear to auscultation Cardiovascular: RRR, no murmur, no edema Extremities: normal capillary refill; no calf tenderness and no pedal edema Gastrointestinal (Abdomen): Inspection/Auscultation: normal bowel sounds Percussion/Palpation: + abdomen tender (RUQ and epigastric pain present w/ palpation) Psychiatric: A+Ox3, euthymic affect Results & Data Results & Data Vital Signs (Past 12 Hours) Vital Signs Temp Pulse Pulse Resp BP BP Pulse Ox 04/22/24 07:13 36.6 C 84 18 136/83 93 04/22/24 04:00 36.7 C 71 18 146/96 H 96 04/21/24 22:31 36.0 C L 98 H 16 148/110 H 97 04/21/24 21:41 65 O2 Del Method 04/22/24 07:13 Room Air 04/22/24 04:00 Room Air 04/21/24 22:31 Room Air 04/21/24 21:41 Resident Activity Tracking Resident Involvement: Resident Care Provided Care Provided: Adult Hospital Medicine
[2024-04-22 09:16] LABS: Albumin Globulin Ratio 1.8 (0.9-2); Albumin Level 3.6 gm/dl (3.4-5.0); Bilirubin,Total 0.3 mg/dl (0.2-1.0); Calcium 8.8 mg/dl (8.6-10.3); Creatinine Clr Calc Pharmacy 139.6 ml/min; Magnesium 2.3 mg/dl (1.7-2.4); Phosphorus 4.3 mg/dl (2.5-4.9); Potassium 5.3 mmol/L (3.5-5.1); Total Protein 5.6 gm/dl (6.0-8.3)
--- NOTE | 2024-04-22 15:08 | Pharmacy Report ---
Pharmacy PN Follow-up Note - Date of Service April 22, 2024 - Subjective Patient is currently on day #[] of [PPN][TPN] for [Indication]. - Objective Height & Weight (Last Documented) Height 5 ft 6 in Weight 72.575 kg Diet Order(s) 04/06/24 Dinner Diet Intake & Ouput (24hrs) 04/21/24 04/22/24 04/23/24 06:59 06:59 06:59 Intake Total 3455.792 / 3455.792 1823.208 / 1823.208 Output Total 300 / 300 300 / 300 Balance 3155.792 / 3155.792 1823.208 / 1823.208 -300 / -300 Selected Laboratory Results 04/22/24 05:46 Sodium 138 Potassium 5.3 H D Chloride 103 Carbon Dioxide 31 Anion Gap 4 BUN 16 Creatinine 0.59 L Calcium 8.8 Phosphorus 4.3 Magnesium 2.3 Total Bilirubin 0.3 AST 33 ALT 73 H Alkaline Phosphatase 61 - Assessment & Plan Assessment: 04/22: * Labs have been stable with minor changes. * Potassium slightly elevated this AM. Suspect drawn from same line as TPN as glucose was significantly elevated as well (no prior glycemic issues noted). Will reduce potassium content slightly, but pharmacy will continue to trend daily. * Critical shortage of Clinimix 12/29 at this time. Discussed with Dr. Ceja and dietary. Ok to switch to peripheral concentration (Clinimix 4.25/5%) with a larger volume (~1100 mL/day to ~2100mL/day) with slight caloric intake decrease but similar AA/dextrose profile. Resident team to monitor for fluid overload daily along with normal labs. Will try to give a dose of lipids today and then 2x weekly to make up minor caloric decrease with the formulation switch. Will monitor TG trend daily. * Will still infuse per central line although using peripheral Clinimix formulation 04/17 * Yesterday changed TPN to have a similar formulation to her previous TPNs * Potassium trending low, slightly increased potassium content, no other changes * Held lipids due to elevated triglycerides and per patient request over the weekend. Plan: * For Day #5 of TPN administration, the following will be ordered: * Macronutrients: * Amino Acids: 85 grams/day * Dextrose: 100 grams/day * Lipids: 50 grams/day (2x per week) * Micronutrients: * Sodium phosphate: 9 mMol/day * Sodium chloride: 80 mEq/day * Potassium acetate: 60 mEq/day * Magnesium sulfate: 8.12 mEq/day * Calcium gluconate: 13.95 mEq/day * Thiamine: 100 mg/day * Total volume of 2098 mL will be infused over 18 hours and will provide 1180 kcal/day * Labs will be ordered per PN protocol. * Pharmacy will follow and adjust PN orders on a daily basis. Thank you!
--- NOTE | 2024-04-22 17:26 | Billing Data ---
Date of Service April 22, 2024 Coding Level of Care Code 04466 SUB INP/OBS CARE
[2024-04-22] MEDS: HYDROmorphone INJ 2 MG/ML SYR/VIAL IV STA (17:31)
[2024-04-22] MEDS: PERIPHERAL TPN IV SCH (21:41)
[2024-04-22] MEDS: [UNRECOGNIZED DRUG - OTHER] IV SCH (21:41)
[2024-04-22] MEDS: CLINOLIPID 20% IV FAT EMULSION 250 ML IV SCH (22:15)
[2024-04-23] MEDS: STOP CLINOLIPID SCH (04:13)
[2024-04-23 08:49] LABS: Albumin Globulin Ratio 1.6 (0.9-2); Albumin Level 3.8 gm/dl (3.4-5.0); BUN Creatinine Ratio 31.5 (10-20); Bilirubin,Total 0.3 mg/dl (0.2-1.0); Calcium 8.7 mg/dl (8.6-10.3); Creatinine Clr Calc Pharmacy 152.6 ml/min; Globulin 2.4 gm/dl (2.5-4.0); Magnesium 2.3 mg/dl (1.7-2.4); Phosphorus 4.2 mg/dl (2.5-4.9); Potassium 4.1 mmol/L (3.5-5.1); Total Protein 6.2 gm/dl (6.0-8.3)
--- NOTE | 2024-04-23 10:29 | Hospitalist Progress Note ---
Date of Service April 23, 2024 Assessment & Plan (1) Visceral hyperalgesia: (2) Severe protein-calorie malnutrition: (3) On total parenteral nutrition (TPN): (4) POTS (postural orthostatic tachycardia syndrome): (5) Seizure-like activity: Plan Pt is a 34 yo F with PMHx of gastroparesis with chronic abdominal pain s/p PEG and ostomy, hx SMA syndrome s/p multiple abdominal surgeries (appendectomy, cholecystectomy, hysterectomy, colectomy, and more), chronic pain syndrome (at times requiring ketamine), 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 1) Abdominal pain, acute on chronic - RUQ more than epigastric to clarify, continue supportive care for now - ddx being motility, adhesional, SMA obstruction --> no imaging done here, recent imaging at [facility], see below - Patient has had small bowel follow-through series as outpt at [facility] that showed an abnormality, but the surgeon is out of [place] and has not F/U w/ surgeon since that time. Patient seems to suggest it showed a narrowing or stricture in the duodenal or ileal area. - Ativan, q6hrs alt w Zofran q6hrs (so she gets something q3), PRN, nausea - Pain regimen: - Dilaudid 1 mg HS - Dilaudid 2 mg q3h - Dilaudid 2 mg q3hrs prn - TD fentanyl patch 75 mcg q3d - Home regimen: Oxycodone 5 mg q4h, fentanyl and Ativan - Plan to transition tomorrow to PO medication Outpatient Potential Therapies - Patient felt that some fatty acid chain enemas helped w/ the rectal pain the most before, but this appears to be an outpt Tx. - Patient is also considering use of a SCS (spinal cord stimulator) as an outpatient to find a way to decrease her opioid reliance 2) Acute dehydration - s/p IV fluids, TPN restarted 3) Transaminitis -ALT: 84 - mild partial elevation, continue to trend CMP daily - likely to be TPN-related, quick lit search and colleague discussion suggests excessive fat/carbohydrate/calorie intake may be cause - less likely to be medicine-related as nothing on med list is obvious culprit 4) Severe protein-calorie malnutrition - monitoring, TPN w/ electrolytes started - TProt, 5.6, L; Albumin, 3.6; Globulin, 2.0, L; TriGly, 181 - Mg, 2.3; P, 4.3 - Mg, P, and CMP ordered daily 5) Visceral hyperalgesia chronic pain management, supportive care, outpt surgery and pain management follow up - see above 6) Seizure-like activity PNES from pain 7) Endometriosis - norethindrone, 0.35 mg, PO, qAM (patient's own oral contraceptive) during hospital stay 8) Mild Hyperkalemia (Hypokalemia) #resolved, if K low again, replete w/ KCl, IV - K, 5.3 (likely sampling error) <-- 3.3 <-- 2.7 - CMP daily in AM - oral KCl pills are not absorbed/come out of ileostomy bag whole, could consider KCl, oral powder 9) TPN Feedings - current feeding time from day 1, 21:00 - day 2, 15:00 w/ 6-hour daily window from 15:00 - 21:00 each day - above schedule may change this weekend as they had to change TPN recipe due to TPN bag shortage - pt will now be getting TPN feedings in 2 L fluid instead of 1 L, monitor for hypervolemia - TPN continues daily, home health [facility] to order outpt TPN close to time of discharge (Case Mgmt may need re-notification) 10) POTS (postural orthostatic tachycardia syndrome)/Adrenal insufficiency IV fluids, steroids--fludrocortisone and hydrocortisone Code status: Full code Dispo: Med-Tele FENGI: Clear liquids diet, TPN when improving VTE Prophylaxis: ambulation Admission and Anticipated Discharge Date Admission Date: April 06, 2024 Supervising Physician Co-Signing Physician Notes I personally examined the patient and verified all solorzano points of history and exam, discussed case, and agree with decision making with Dr Ugalde feeling maybe a little better but still having some pain. vitals noted, nad. breathing unlabored no accessory muscle use good effort. skin without rashes pallor or icterus, no focal neurodeficits Acute on chronic abdominal pain/visceral hyperalgesia/SMA syndrome/adhesionssuspect pain currently is predominantly a combination of adhesions and visceral hyperalgesia. fell back on IV pain regimen for now hold PO pain meds, encourage PO intake, continue to follow - possibly by tomorrow we can get back to working towards PO pain meds. otherwise as above Subjective seen this morning, pain was 10/10, not at goal. Plan to get ahead of pain and transition to po medications Review of Systems Review of Systems: Per HPI. Physical Exam Constitutional: WD/WN, vitals as above Respiratory: normal respiratory effort, lungs clear to auscultation Cardiovascular: RRR, no murmur, no edema Extremities: normal capillary re fill; no calf tenderness and no pedal edema Gastrointestinal (Abdomen): Inspection/Auscultation: normal bowel sounds Percussion/Palpation: + abdomen tender (RUQ and epigastric pain present w/ palpation) Psychiatric: A+Ox3, euthymic affect Results & Data Results & Data Vital Signs (Past 12 Hours) Vital Signs Temp Pulse Pulse Resp BP BP Pulse Ox 04/23/24 07:33 36.5 C 63 16 116/80 97 04/23/24 05:53 59 L 04/23/24 02:46 36.6 C 87 18 137/83 96 04/23/24 01:35 66 04/22/24 23:00 36.7 C 82 18 151/108 H 97 O2 Del Method 04/23/24 07:33 Room Air 04/23/24 05:53 04/23/24 02:46 Room Air 04/23/24 01:35 04/22/24 23:00 Room Air Resident Activity Tracking Resident Involvement: Resident Care Provided Care Provided: Adult Hospital Medicine
[2024-04-23] MEDS: HYDROmorphone INJ 2 MG/ML SYR/VIAL IV STA (10:56)
--- NOTE | 2024-04-23 15:12 | Billing Data ---
Date of Service April 23, 2024 Coding Level of Care Code 13897 SUB INP/OBS CARE
[2024-04-23] MEDS: [UNRECOGNIZED DRUG - OTHER] IV SCH (21:08)
[2024-04-23] MEDS: PERIPHERAL TPN IV SCH (21:08)
[2024-04-24 06:46] LABS: Albumin Globulin Ratio 1.6 (0.9-2); Albumin Level 3.4 gm/dl (3.4-5.0); BUN Creatinine Ratio 29.1 (10-20); Bilirubin,Total 0.3 mg/dl (0.2-1.0); Calcium 8.7 mg/dl (8.6-10.3); Creatinine Clr Calc Pharmacy 149.8 ml/min; Globulin 2.1 gm/dl (2.5-4.0); Magnesium 2.3 mg/dl (1.7-2.4); Phosphorus 4.4 mg/dl (2.5-4.9); Potassium 4.8 mmol/L (3.5-5.1); Total Protein 5.5 gm/dl (6.0-8.3)
--- NOTE | 2024-04-24 07:44 | Hospitalist Progress Note ---
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 1) Abdominal pain, acute on chronic - RUQ more than epigastric to clarify, continue supportive care for now - ddx being motility, adhesional, SMA obstruction --> no imaging done here, recent imaging at [facility], see below - Patient has had small bowel follow-through series as outpt at [facility] that showed an abnormality, but the surgeon is out of country and has not F/U w/ surgeon since that time. Patient seems to suggest it showed a narrowing or stricture in the duodenal or ileal area. - Ativan, q6hrs alt w Zofran q6hrs (so she gets something q3), PRN, nausea - Transitioning IV to PO today - Pain regimen: - Dilaudid IV 1 mg HS - plan to d/c tomorrow - Dilaudid IV 2 mg q3hrs prn - for breakthrough pain - TD fentanyl patch 75 mcg q3d -Home regimen: Roxicodone 10 mg q3h (restarted today) fentanyl and Ativan Outpatient Potential Therapies - Patient felt that some fatty acid chain enemas helped w/ the rectal pain the most before, but this appears to be an outpt Tx. - Patient is also considering use of a SCS (spinal cord stimulator) as an outpatient to find a way to decrease her opioid reliance 2) Acute dehydration - s/p IV fluids, TPN restarted 3) Transaminitis -ALT: 84, trending león - mild partial elevation, continue to trend CMP daily - likely to be TPN-related, quick lit search and colleague discussion suggests excessive fat/carbohydrate/calorie intake may be cause - less likely to be medicine-related as nothing on med list is obvious culprit 4) Severe protein-calorie malnutrition - monitoring, TPN w/ electrolytes started - TProt, 5.6, L; Albumin, 3.6; Globulin, 2.0, L; TriGly, 181 - Mg, 2.3; P, 4.3 - Mg, P, and CMP ordered daily 5) Visceral hyperalgesia chronic pain management, supportive care, outpt surgery and pain management follow up - see above 6) Seizure-like activity PNES from pain 7) Endometriosis - norethindrone, 0.35 mg, PO, qAM (patient's own oral contraceptive) during hospital stay 8) Mild Hyperkalemia (Hypokalemia) #resolved, if K low again, replete w/ KCl, IV - K, 5.3 (likely sampling error) <-- 3.3 <-- 2.7 - CMP daily in AM - oral KCl pills are not absorbed/come out of ileostomy bag whole, could consider KCl, oral powder 9) TPN Feedings - current feeding time from day 1, 21:00 - day 2, 15:00 w/ 6-hour daily window from 15:00 - 21:00 each day - above schedule may change this weekend as they had to change TPN recipe due to TPN bag shortage - pt will now be getting TPN feedings in 2 L fluid instead of 1 L, monitor for hypervolemia - TPN continues daily, home health [facility] to order outpt TPN close to time of discharge (Case Mgmt may need re-notification) 10) POTS (postural orthostatic tachycardia syndrome)/Adrenal insufficiency IV fluids, steroids--fludrocortisone and hydrocortisone Code status: Full code Dispo: Med-Tele FENGI: Clear liquids diet, TPN when improving VTE Prophylaxis: ambulation Admission and Anticipated Discharge Date Admission Date: April 06, 2024 Supervising Physician Co-Signing Physician Notes I personally examined the patient and verified all solorzano points of history and exam, discussed case, and agree with decision making with Dr Ugalde patient seen multiple times todayon first evaluation she was doubled over in bed with abdominal pain and actively retching. Later in follow-up she was more comfortable at first and then had a wave of abdominal pain along with a syncopal event and pseudoseizure, but then on third time seeing her I incidentally saw her in the hallway where she was visiting with her dog and appearing brighter. Vitals noted, in general she was in vomiting related distress on the first visit, somewhat uncomfortable second visit, breathing unlabored no accessory muscle use good effort. Abdomen soft with diffuse tenderness but no guarding rebound or rigidity. Skin without rashes pallor or icterus. Neuro without focal deficits. Acute on chronic abdominal pain/visceral hyperalgesia/SMA syndrome/adhesionss uspect pain currently is predominantly a combination of adhesions and visceral hyperalgesia. Now trying to work towards transition to enteral medications at home. She would very much like to be out to get out of the hospital overall it does not seem unrealistic given that her pain seems to be improvingright now we have her on scheduled oxycodone at double her home dose, with the hope that we can maybe affect reasonable pain control with p.o. pain meds and have her be able to go home and slowly wean back to her regular 5 mg dosing over time. I left the IV pain medicines in place for breakthrough simply because when she starts to fall behind it can often take days to catch back up, but she feels reasonably confident that she could make a decent judgment call on how well she will do with p.o. pain meds alone even if she has still needed some IV for breakthrough from time to time. If she were to truly regress, would then need to consider transfer to [facility] for surgical evaluation given that it is likely that a lot of her pain is adhesion driven, and if she regresses yet again, having had 2 weeks of pain control and supportive care would be a reasonable line at which to enlist surgical evaluation (which would require her tertiary care surgeon). For overall pain control, we have been discussing that she did well with her spinal cord stimulator trial, and outpatient follow-up with pain management would likely be of benefitshe thinks she will probably do this at [facility] in [place] because then things can be better coordinated with her transplant surgeonthis makes sense. otherwise as above, Hopefully home tomorrow Subjective Evaluated in the morning. Refers AM todd Review of Systems Review of Systems: Per HPI. Physical Exam Constitutional: WD/WN, vitals as above Respiratory: normal respiratory effort, lungs clear to auscultation Cardiovascular: RRR, no murmur, no edema Extremities: normal capillary refill; no calf tenderness and no pedal edema Gastrointestinal (Abdomen): Inspection/Auscultation: normal bowel sounds Percussion/Palpation: + abdomen tender (RUQ and epigastric pain present w/ palpation) Psychiatric: A+Ox3, euthymic affect Results & Data Results & Data Vital Signs (Past 12 Hours) Vital Signs Temp Pulse Pulse Resp BP BP Pulse Ox 04/24/24 07:39 36.7 C 86 16 126/86 94 04/24/24 02:55 36.7 C 74 18 136/87 99 04/24/24 00:51 99 H 04/24/24 00:10 36.6 C 113 H 16 147/108 H 94 O2 Del Method 04/24/24 07:39 Room Air 04/24/24 02:55 Room Air 04/24/24 00:51 04/24/24 00:10 Room Air Resident Activity Tracking Resident Involvement: Resident Care Provided Care Provided: Adult Hospital Medicine
[2024-04-24] MEDS: METHOCARBAMOL 750 MG TABLET PO SCH (08:42)
[2024-04-24] MEDS: HYDROmorphone INJ 2 MG/ML SYR/VIAL IV STA (14:53)
[2024-04-24] MEDS: oxyCODONE HCL SOLN 5 MG/5 ML UDC PO PRN (16:05)
[2024-04-24] MEDS: ondansetron HCL 8 MG in DEXTROSE 5% 50 ML IV ONE (16:06)
[2024-04-24] MEDS: oxyCODONE HCL SOLN 5 MG/5 ML UDC PO ONE (17:02)
--- NOTE | 2024-04-24 18:19 | Billing Data ---
Date of Service April 24, 2024 Coding Level of Care Code 69978 SUB INP/OBS CARE
[2024-04-24] MEDS: [UNRECOGNIZED DRUG - OTHER] IV SCH (20:16)
[2024-04-24] MEDS: PERIPHERAL TPN IV SCH (20:16)
[2024-04-25] MEDS: HYDROmorphone INJ 2 MG/ML SYR/VIAL IV STA ×2 (03:24→19:14)
[2024-04-25 06:53] LABS: Albumin Globulin Ratio 1.7 (0.9-2); Albumin Level 3.5 gm/dl (3.4-5.0); BUN Creatinine Ratio 29.6 (10-20); Bilirubin,Total 0.3 mg/dl (0.2-1.0); Calcium 8.5 mg/dl (8.6-10.3); Creatinine Clr Calc Pharmacy 152.6 ml/min; Globulin 2.1 gm/dl (2.5-4.0); Magnesium 2.2 mg/dl (1.7-2.4); Potassium 3.4 mmol/L (3.5-5.1); Total Protein 5.6 gm/dl (6.0-8.3)
--- NOTE | 2024-04-25 08:16 | Hospitalist Progress Note ---
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 1) Abdominal pain, acute on chronic - RUQ more than epigastric, continue supportive care - ddx being motility, adhesional, SMA obstruction --> no imaging done here, recent small bowel follow through at [facility] demonstrated extrinsic compression of duodenum, consistent with recurrence of SMA syndrome - follow up appointment with [facility] transplant surgeon 04/26, possibly changing to a phone appointment. - Ativan, q6hrs alt w Zofran q6hrs (so she gets something q3), PRN, nausea - Pain regimen: Hopeful that pain can be managed with PO meds to facilitate eventual discharge - Dilaudid IV 1 mg HS + Dilaudid IV 2 mg q3hrs prn - for breakthrough pain - Continue home regimen: Roxicodone 10 mg q3h, fentanyl and Ativan Outpatient Potential Therapies - Patient felt that some fatty acid chain enemas helped w/ the rectal pain the most before, but this appears to be an outpt Tx. - Patient is also considering use of a SCS (spinal cord stimulator) as an outpatient to find a way to decrease her opioid reliance 2) Acute dehydration - s/p IV fluids, continue TPN 3) Transaminitis -Mild, trending down - continue to trend CMP - likely to be TPN-related, less likely to be medicine-related as nothing on med list is obvious culprit 4) Severe protein-calorie malnutrition - Monitor labs, continue TPN w/ electrolytes 5) Visceral hyperalgesia chronic pain management, supportive care, outpt surgery and pain management follow up - see above 6) Seizure-like activity PNES from pain - continue home Ativan 7) Endometriosis - norethindrone, 0.35 mg, PO, qAM (patient's own oral contraceptive) during hospital stay 8) TPN Feedings - TPN continues daily, home health [facility] to order outpt TPN close to time of discharge 10) POTS (postural orthostatic tachycardia syndrome)/Adrenal insufficiency IV fluids, steroids--fludrocortisone and hydrocortisone Code status: Full code Dispo: Med-Tele FENGI: TPN, PO intake as tolerated/desired VTE Prophylaxis: ambulation Admission and Anticipated Discharge Date Admission Date: April 06, 2024 Supervising Physician Co-Signing Physician Notes Attending Physician Supervision Note: I independently interviewed and examined the patient and verified the solorzano history and physical, reviewed labs and image studies and agree with findings and care plan noted above. Seen this afternoon. Sitting up in bed. Worried about her pain not being control led with oral meds. AAOx3, no resp distress. Acute on chronic abdominal pain/visceral hyperalgesia/SMA syndrome/adhesions Has appointment with surgeon at [facility] for evaluation of SMA syn 04/26 but won't be able to make it. -continue current care. -consider arranging multidisciplinary team meeting for any input. 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 Patient reports RUQ abdominal pain, worse in the morning. +nausea, no vomiting. Minimal PO intake. Ostomy output decreased but still present. Initially, patient was hoping to discharge today in order to attend AM appointment with transplant surgeon at [facility]; due to ongoing pain, would like to remain in hospital and is trying to arrange surgery appointment as a phone call or telehealth. Review of Systems Review of Systems: Per HPI. Physical Exam Constitutional: WD/WN, vitals as above Respiratory: normal respiratory effort; no labored breathing Musculoskeletal: no cyanosis or clubbing, extremities motor strength 5/5 Skin: no rashes, warm and dry Psychiatric: A+Ox3, euthymic affect Results & Data Results & Data Vital Signs (Past 12 Hours) Vital Signs Temp Pulse Pulse Resp BP Pulse Ox O2 Del Method 04/25/24 07:12 62 04/25/24 05:12 36.9 C 67 16 133/93 95 Room Air 04/25/24 00:14 36.5 C 88 16 142/99 H 95 Room Air 04/24/24 21:43 84 Resident Activity Tracking Resident Involvement: Resident Care Provided Care Provided: Adult [facility] Medicine
[2024-04-25] MEDS: HYDROmorphone INJ 1 MG/ML SYRINGE IV STA (12:04)
[2024-04-25] MEDS: [UNRECOGNIZED DRUG - OTHER] IV SCH (20:29)
[2024-04-25] MEDS: PERIPHERAL TPN IV SCH (20:29)
--- NOTE | 2024-04-26 07:42 | Hospitalist Progress Note ---
Date of Service April 26, 2024 Assessment & Plan (1) Visceral hyperalgesia: (2) Severe protein-calorie malnutrition: (3) On total parenteral nutrition (TPN): (4) POTS (postural orthostatic tachycardia syndrome): (5) Seizure-like activity: Plan Pt is a 34 yo F with PMHx of gastroparesis with chronic abdominal pain s/p PEG and ostomy, hx SMA syndrome s/p multiple abdominal surgeries (appendectomy, cholecystectomy, hysterectomy, colectomy, and more), chronic pain syndrome (at times requiring ketamine), 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 1) Abdominal pain, acute on chronic - RUQ more than epigastric, continue supportive care - ddx being motility, adhesional, SMA obstruction --> no imaging done here, recent small bowel follow through at [facility] demonstrated extrinsic compression of duodenum, consistent with recurrence of SMA syndrome - further management pending discussion/follow up with [facility] transplant surgeon - Ativan, q6hrs alt w Zofran q6hrs (so she gets something q3), PRN, nausea - Pain regimen: Hopeful that pain can be managed with PO meds to facilitate eventual discharge - Dilaudid IV 1 mg HS + Dilaudid IV 2 mg q3hrs prn - for breakthrough pain - Continue home regimen: Roxicodone 10 mg q3h, fentanyl and Ativan - Consider another multidisciplinary meeting to discuss pain management protocol for future hospitalizations Outpatient Potential Therapies - Patient felt that some fatty acid chain enemas helped w/ the rectal pain the most before, but this appears to be an outpt Tx. - Patient is also considering use of a SCS (spinal cord stimulator) as an outpatient to find a way to decrease her opioid reliance 2) Acute dehydration - continue TPN 3) Transaminitis - Mild, trending down - continue to trend CMP - likely to be TPN-related, less likely to be medicine-related as nothing on med list is obvious culprit 4) Severe protein-calorie malnutrition - Monitor labs, continue TPN w/ electrolyte repletion as needed 5) Visceral hyperalgesia chronic pain management, supportive care, outpt surgery and pain management follow up - see above 6) Seizure-like activity PNES from pain - continue home Ativan 7) Endometriosis - norethindrone, 0.35 mg, PO, qAM (patient's own oral contraceptive) during hospital stay 8) TPN Feedings - TPN continues daily, home health [facility] to order outpt TPN close to time of discharge 10) POTS (postural orthostatic tachycardia syndrome)/Adrenal insufficiency IV fluids, steroids--fludrocortisone and hydrocortisone Code status: Full code Dispo: Med-Tele FENGI: TPN, PO intake as tolerated/desired VTE Prophylaxis: ambulation Admission and Anticipated Discharge Date Admission Date: April 06, 2024 Supervising Physician Co-Signing Physician Notes Attending Physician Supervision Note: I independently interviewed and examined the patient and verified the solorzano history and physical, reviewed labs and image studies and agree with findings and care plan noted above. Seen this afternoon. Continuing to have pain. Reports current medications regimen is not controlling pain. AAOx3, no resp distress. Acute on chronic abdominal pain/visceral hyperalgesia/SMA syndrome/adhesions Has been in contact with surgeon at [facility] for evaluation of SMA syn 04/26 but has to have appointments cancelled twice during this hospital stay. -continue current care - hydromorphone 2mgs q3hrs prn and 1mgs hs, oxycodone 10mgs q3hrs prn, fentanyl patch. -Discussed with case management and Hospital operations team regarding extended stay with high dose dilaudid use. -Will arrange multidisciplinary team meeting for input. Adrenal insufficiency - On Fludrocortisone 0.1mgs BID and hydrocortisone at home. -Receiving IV hydrocortisone 50mgs TID and home dose fludrocortisone. -Will need to wean IV hydrocortisone. 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 Patient is hoping to receive phone call today from [facility] transplant surgeon regarding recent small bowel follow through. Patient in the process of establishing with [facility] for pain management as well. Inpatient pain management protocol developed previously, included placement in ICU for ketamine administration, though this has not been implemented during past few hospital stays. Patient also reports prior brief trial of spinal cord stimulator, states this had to be removed at the same time as port infection. Review of Systems Review of Systems: Per HPI. Physical Exam Constitutional: WD/WN, vitals as above Respiratory: normal respiratory effort; no labored breathing Musculoskeletal: no cyanosis or clubbing, extremities motor strength 5/5 Skin: no rashes, warm and dry Psychiatric: A+Ox3, euthymic affect Results & Data Results & Data Vital Signs (Past 12 Hours) Vital Signs Temp Pulse Pulse Resp BP Pulse Ox O2 Del Method 04/26/24 07:36 36.6 C 84 18 130/89 95 Room Air 04/26/24 02:51 36.5 C 75 20 126/91 95 Room Air 04/25/24 21:50 89 04/25/24 20:30 36.5 C 83 20 143/92 H 98 Room Air Resident Activity Tracking Resident Involvement: Resident Care Provided Care Provided: Adult Hospital Medicine
[2024-04-26 08:44] LABS: BUN Creatinine Ratio 29.1 (10-20); Calcium 8.4 mg/dl (8.6-10.3); Creatinine Clr Calc Pharmacy 137.5 ml/min; Magnesium 2.1 mg/dl (1.7-2.4); Phosphorus 3.4 mg/dl (2.5-4.9); Potassium 3.4 mmol/L (3.5-5.1)
--- NOTE | 2024-04-26 14:27 | Pharmacy Report ---
Pharmacy PN Follow-up Note - Date of Service April 26, 2024 - Subjective Patient is currently on day #[] of [PPN][TPN] for [Indication]. - Objective Height & Weight (Last Documented) Height 5 ft 6 in Weight 66 kg Diet Order(s) 04/06/24 Dinner Diet Intake & Ouput (24hrs) 04/25/24 04/26/24 04/27/24 06:59 06:59 06:59 Intake Total 534 / 534 4397.967 / 4397.967 2287.5 / 2287.5 Output Total 300 / 300 250 / 250 Balance 234 / 234 4147.967 / 4147.967 2287.5 / 2287.5 Selected Laboratory Results 04/26/24 07:12 Sodium 139 Potassium 3.4 L Chloride 103 Carbon Dioxide 31 Anion Gap 5 BUN 16 Creatinine 0.55 L BUN/Creatinine Ratio 29.1 H Glucose 117 H Calcium 8.4 L Phosphorus 3.4 Magnesium 2.1 Triglycerides 175 H - Assessment & Plan Assessment: 04/27: * Minor changes to TPN, continue with peripheral concentration of Clinimix infused through central port due to critical Clinimix 12/29 shortage. * Titrating calcium content closer to home dosage of 20mEq per day * Potassium level variable, will continue to titrate levels in bag * 50gm lipids ordered again today, continue to monitor triglyceride levels, and dose as tolerated due to slight decrease in overall caloric content with peripheral Clinimix 04/22: * Labs have been stable with minor changes. * Potassium slightly elevated this AM. Suspect drawn from same line as TPN as glucose was significantly elevated as well (no prior glycemic issues noted). Will reduce potassium content slightly, but pharmacy will continue to trend daily. * Critical shortage of Clinimix 8/14 at this time. Discussed with Dr. Ceja and dietary. Ok to switch to peripheral concentration (Clinimix 4.25/5%) with a larger volume (~1100 mL/day to ~2100mL/day) with slight caloric intake decrease but similar AA/dextrose profile. Resident team to monitor for fluid overload daily along with normal labs. Will try to give a dose of lipids today and then 2x weekly to make up minor caloric decrease with the formulation switch. Will monitor TG trend daily. * Will still infuse per central line although using peripheral Clinimix formulation 04/17 * Yesterday changed TPN to have a similar formulation to her previous TPNs * Potassium trending low, slightly increased potassium content, no other changes * Held lipids due to elevated triglycerides and per patient request over the weekend. Plan: * For Day #5 of TPN administration, the following will be ordered: * Macronutrients: * Amino Acids: 85 grams/day * Dextrose: 100 grams/day * Lipids: 50 grams/day (2x per week) * Micronutrients: * Sodium phosphate: 9 mMol/day * Sodium chloride: 80 mEq/day * Potassium acetate: 60 mEq/day * Magnesium sulfate: 8.12 mEq/day * Calcium gluconate: 18.6 mEq/day * Thiamine: 100 mg/day * Total volume of 2108 mL will be infused over 18 hours and will provide 1180 kcal/day * Labs will be ordered per PN protocol. * Pharmacy will follow and adjust PN orders on a daily basis. Thank you!
[2024-04-26] MEDS: CLINOLIPID 20% IV FAT EMULSION 250 ML IV SCH (19:16)
[2024-04-26] MEDS: AA 4.25%/D5W 2L 2,108 ML in Peripheral TPN bag 0 ML IV SCH (20:39)
[2024-04-27] MEDS: STOP CLINOLIPID SCH ×2 (00:12→22:10)
[2024-04-27 07:33] LABS: Albumin Globulin Ratio 1.6 (0.9-2); Albumin Level 3.4 gm/dl (3.4-5.0); BUN Creatinine Ratio 31.4 (10-20); Bilirubin,Total 0.3 mg/dl (0.2-1.0); Calcium 8.5 mg/dl (8.6-10.3); Creatinine Clr Calc Pharmacy 148.2 ml/min; Globulin 2.1 gm/dl (2.5-4.0); Magnesium 2.2 mg/dl (1.7-2.4); Phosphorus 3.9 mg/dl (2.5-4.9); Potassium 3.6 mmol/L (3.5-5.1); Total Protein 5.5 gm/dl (6.0-8.3)
--- NOTE | 2024-04-27 07:36 | Hospitalist Progress Note ---
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 1) Abdominal pain, acute on chronic - RUQ more than epigastric, continue supportive care - ddx being motility, adhesional, SMA obstruction --> no imaging done here, recent small bowel follow through at [facility] demonstrated extrinsic compression of duodenum, consistent with recurrence of SMA syndrome - further management pending discussion/follow up with [facility] transplant surgeon - Ativan, q6hrs alt w Zofran q6hrs (so she gets something q3), PRN, nausea - Pain regimen: Hopeful that pain meds can be transitioned to PO meds to facilitate eventual discharge - Dilaudid IV 1 mg HS + Dilaudid IV 2 mg q3hrs prn - for breakthrough pain - Continue home regimen: Roxicodone 10 mg q3h, fentanyl and Ativan - Consider another multidisciplinary meeting to discuss pain management protocol for future hospitalizations Outpatient Potential Therapies - Patient felt that some fatty acid chain enemas helped w/ the rectal pain the most before, but this appears to be an outpt Tx. - Patient is also considering use of a SCS (spinal cord stimulator) as an outpatient to find a way to decrease her opioid reliance 2) Acute dehydration - continue TPN 3) Transaminitis - Mild, trending down - continue to trend CMP - likely to be TPN-related, less likely to be medicine-related as nothing on med list is obvious culprit 4) Severe protein-calorie malnutrition - Monitor labs, continue TPN w/ electrolyte repletion as needed 5) Visceral hyperalgesia chronic pain management, supportive care, outpt surgery and pain management follow up - see above 6) Seizure-like activity PNES from pain - continue home Ativan 7) Endometriosis - norethindrone, 0.35 mg, PO, qAM (patient's own oral contraceptive) during hospital stay 8) TPN Feedings - TPN continues daily, home health [facility] to order outpt TPN close to time of discharge 10) POTS (postural orthostatic tachycardia syndrome)/Adrenal insufficiency Continue home dose of Fludrocortisone, will start to wean hydrocortisone back to home dose - will decrease to 50mg BID today. Code status: Full code Dispo: Med-Tele FENGI: TPN, PO intake as tolerated/desired VTE Prophylaxis: ambulation Admission and Anticipated Discharge Date Admission Date: April 06, 2024 Supervising Physician Co-Signing Physician Notes Attending Physician Supervision Note: I independently interviewed and examined the patient and verified the solorzano history and physical, reviewed labs and image studies and agree with findings and care plan noted above. 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 Abdomen soft. Ostomy and enteric tube + Acute on chronic abdominal pain/visceral hyperalgesia/SMA syndrome/adhesions Has been in contact with surgeon at [facility] for evaluation of SMA syn 04/26 but has to have appointments cancelled twice during this hospital stay. -continue current care - hydromorphone 2mgs q3hrs prn and 1mgs hs, oxycodone 10mgs q3hrs prn, fentanyl patch. Continue to encourage utilization of non-narcotic option for pain control/modulation -Discussed with case management and Hospital operations team (04/27/2024) regarding extended stay with high dose dilaudid use. -In process of arranging multidisciplinary team meeting for input. Adrenal insufficiency - On Fludrocortisone 0.1mgs BID and hydrocortisone at home. -Will wean IV hydrocortisone 50mgs BID and continue home dose fludrocortisone. 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 Patient has not yet heard from [facility] transplant surgeon regarding recent small bowel follow through. Ongoing abdominal pain. Review of Systems Review of Systems: Per HPI. Physical Exam Constitutional: WD/WN, vitals as above Respiratory: normal respiratory effort; no labored breathing Musculoskeletal: no cyanosis or clubbing, extremities motor strength 5/5 Skin: no rashes, warm and dry Psychiatric: A+Ox3, euthymic affect Results & Data Results & Data Vital Signs (Past 12 Hours) Vital Signs Temp Pulse Pulse Resp BP BP Pulse Ox 04/27/24 07:31 36.6 C 87 18 149/93 H 98 04/27/24 06:28 58 L 04/27/24 02:57 36.6 C 73 18 128/84 96 04/26/24 22:09 36.7 C 89 16 143/97 H 97 04/26/24 22:03 88 O2 Del Method 04/27/24 07:31 Room Air 04/27/24 06:28 04/27/24 02:57 Room Air 04/26/24 22:09 Room Air 04/26/24 22:03 Resident Activity Tracking Resident Involvement: Resident Care Provided Care Provided: Adult Hospital Medicine
[2024-04-27] MEDS: CLINOLIPID 20% IV FAT EMULSION 250 ML IV SCH (19:37)
[2024-04-27] MEDS: HYDROCORTISONE SOD 50 MG in SYRINGE 0 ML IV SCH (20:01)
[2024-04-27] MEDS: AA 4.25%/D5W 2L 2,108 ML in Peripheral TPN bag 0 ML IV SCH (21:08)
[2024-04-28] MEDS: HYDROmorphone INJ 2 MG/ML SYR/VIAL IV STA (01:24)
[2024-04-28 06:52] LABS: Albumin Globulin Ratio 1.6 (0.9-2); Albumin Level 3.6 gm/dl (3.4-5.0); BUN Creatinine Ratio 25.9 (10-20); Bilirubin,Total 0.3 mg/dl (0.2-1.0); Calcium 8.6 mg/dl (8.6-10.3); Creatinine Clr Calc Pharmacy 130.4 ml/min; Globulin 2.2 gm/dl (2.5-4.0); Magnesium 2.2 mg/dl (1.7-2.4); Phosphorus 4.2 mg/dl (2.5-4.9); Potassium 3.8 mmol/L (3.5-5.1); Total Protein 5.8 gm/dl (6.0-8.3)
--- NOTE | 2024-04-28 08:08 | Hospitalist Progress Note ---
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 1) Abdominal pain, acute on chronic - RUQ more than epigastric, continue supportive care - ddx being motility, adhesional, SMA obstruction --> no imaging done here, recent small bowel follow through at [facility] demonstrated extrinsic compression of duodenum, consistent with recurrence of SMA syndrome - further management pending discussion/follow up with [facility] transplant surgeon - Ativan, q6hrs alt w Zofran q6hrs (so she gets something q3), PRN, nausea - Pain regimen: Hopeful that pain meds can be transitioned to PO meds to facilitate eventual discharge - Dilaudid IV 1 mg HS + Dilaudid IV 2 mg q3hrs prn - for breakthrough pain - Continue home regimen: Roxicodone 10 mg q3h, fentanyl and Ativan - Consider another multidisciplinary meeting to discuss standardized pain management protocol for future reference Outpatient Potential Therapies - Patient felt that some fatty acid chain enemas helped w/ the rectal pain the most before, but this appears to be an outpt Tx. - Patient is also considering use of a SCS (spinal cord stimulator) as an outpatient to find a way to decrease her opioid reliance 2) Acute dehydration - continue TPN 3) Transaminitis - Mild, trending down - continue to trend CMP - likely to be TPN-related, less likely to be medicine-related as nothing on med list is obvious culprit - Okay to add back lipids to TPN whenever patient feels she can tolerate 4) Severe protein-calorie malnutrition - Monitor labs, continue TPN w/ electrolyte repletion as needed 5) Visceral hyperalgesia chronic pain management, supportive care, outpt surgery and pain management follow up - see above 6) Seizure-like activity PNES from pain - continue home Ativan 7) Endometriosis - norethindrone, 0.35 mg, PO, qAM (patient's own oral contraceptive) during hosp ital stay 8) TPN Feedings - TPN continues daily, home health [facility] to order outpt TPN close to time of discharge 10) POTS (postural orthostatic tachycardia syndrome)/Adrenal insufficiency Continue home dose of Fludrocortisone, continue hydrocortisone IV 50mg BID - patient received stress dosing for ~3 weeks, will need taper until home dose can be resumed. Code status: Full code Dispo: Med-Tele FENGI: TPN, PO intake as tolerated/desired VTE Prophylaxis: ambulation Admission and Anticipated Discharge Date Admission Date: April 06, 2024 Supervising Physician Co-Signing Physician Notes Attending Physician Supervision Note: I independently interviewed and examined the patient and verified the solorzano history and physical, reviewed labs and image studies and agree with findings and care plan noted above. Needed all doses of dilaudid last night. Has had pseudoseizure event and dry heaves. AAOx3, no resp distress. Acute on chronic abdominal pain/visceral hyperalgesia/SMA syndrome/adhesions Has been in contact with surgeon at [facility] for evaluation of SMA syn 04/26 but has to have appointments cancelled twice during this hospital stay. -current medication regimen - hydromorphone 2mgs q3hrs prn and 1mgs hs, oxycodone 10mgs q3hrs prn, fentanyl patch. Mom upset about patient not getting IV dilaudid prn dose for pseudoseizure. Discussed the care with patient and mom - discussed concern of extended IV narcotics over 3 wks with frequent recurrence of worsening symptoms. Discussed that this length of extended IV narcotics will lead to continually increased tolerance. Discussed that we are still hoping to have a Multidisciplinary team meeting to help with team approach for care in this complex setting. In the time being - to continue to encourage utilization of non-narcotic option for pain control/modulation -Discussed with case management and Hospital operations team (04/27/2024) regarding extended stay with high dose IV narcotic use. -In process of arranging multidisciplinary team meeting for input. Adrenal insufficiency - On Fludrocortisone 0.1mgs BID and hydrocortisone at home. -Will wean IV hydrocortisone 50mgs BID and continue home dose fludr ocortisone. Have also reached out to other hospitalist this evening for providing care - Will reach out to them again in am. 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 Patient reports more intense abdominal pain overnight, describes as a twisting sensation. Patient has not yet heard from [facility] transplant surgeon regarding recent small bowel follow through. Review of Systems Review of Systems: Per HPI. Physical Exam Constitutional: WD/WN, vitals as above Respiratory: normal respiratory effort; no labored breathing Musculoskeletal: no cyanosis or clubbing, extremities motor strength 5/5 Skin: no rashes, warm and dry Psychiatric: A+Ox3, euthymic affect Results & Data Results & Data Vital Signs (Past 12 Hours) Vital Signs Temp Pulse Pulse Resp BP Pulse Ox O2 Del Method 04/28/24 07:51 36.5 C 73 16 130/82 96 Room Air 04/28/24 02:50 36.6 C 83 16 131/92 95 Room Air 04/27/24 22:33 93 H 16 149/92 H 97 Room Air 04/27/24 21:52 114 H Resident Activity Tracking Resident Involvement: Resident Care Provided Care Provided: Adult Hospital Medicine
[2024-04-28] MEDS: AA 4.25%/D5W 2L 2,108 ML in Peripheral TPN bag 0 ML IV SCH (20:04)
--- NOTE | 2024-04-29 07:46 | Hospitalist Progress Note ---
Date of Service April 29, 2024 Assessment & Plan (1) Visceral hyperalgesia: (2) Severe protein-calorie malnutrition: (3) On total parenteral nutrition (TPN): (4) POTS (postural orthostatic tachycardia syndrome): (5) Seizure-like activity: Plan Pt is a 34 yo F with PMHx of gastroparesis with chronic abdominal pain s/p PEG and ostomy, hx SMA syndrome s/p multiple abdominal surgeries (appendectomy, cholecystectomy, hysterectomy, colectomy, and more), chronic pain syndrome (at times requiring ketamine), 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 1) Abdominal pain, acute on chronic - RUQ more than epigastric, continue supportive care - ddx being motility, adhesional, SMA obstruction --> no imaging done here, recent small bowel follow through at [facility] demonstrated extrinsic compression of duodenum, consistent with recurrence of SMA syndrome - further management pending discussion/follow up with [facility] transplant surgeon - Ativan, q6hrs alt w Zofran q6hrs (so she gets something q3), PRN, nausea - Pain regimen: Hopeful that pain meds can be transitioned to PO meds to facilitate eventual discharge - Dilaudid IV 1 mg HS + Dilaudid IV 2 mg q3hrs prn - for breakthrough pain - Continue home regimen: Roxicodone 10 mg q3h, fentanyl and Ativan - Consider another multidisciplinary meeting to discuss standardized pain management protocol for future reference Outpatient Potential Therapies - Patient felt that some fatty acid chain enemas helped w/ the rectal pain the most before, but this appears to be an outpt Tx. - Patient is also considering use of a SCS (spinal cord stimulator) as an outpatient to find a way to decrease her opioid reliance 2) Acute dehydration - continue TPN, patient requests that lipids continue to be held 3) Transaminitis - Mild, trending down - continue to trend CMP - likely to be TPN-related, less likely to be medicine-related as nothing on med list is obvious culprit - Okay to add back lipids to TPN whenever patient feels she can tolerate 4) Severe protein-calorie malnutrition - Monitor labs, continue TPN w/ electrolyte repletion as needed 5) Visceral hyperalgesia chronic pain management, supportive care, outpt surgery and pain management follow up - see above 6) Seizure-like activity PNES from pain - continue home Ativan 7) Endometriosis - norethindrone, 0.35 mg, PO, qAM (patient's own oral contraceptive) during hospital stay 8) TPN Feedings - TPN continues daily, home health [facility] to order outpt TPN close to time of discharge 10) POTS (postural orthostatic tachycardia syndrome)/Adrenal insufficiency Continue home dose of Fludrocortisone, continue hydrocortisone IV 50mg BID - patient received stress dosing for ~3 weeks, will need taper until home dose reached. Code status: Full code Dispo: Med-Tele FENGI: TPN, PO intake as tolerated/desired VTE Prophylaxis: ambulation Admission and Anticipated Discharge Date Admission Date: April 06, 2024 Supervising Physician Co-Signing Physician Notes Attending Physician Supervision Note: I independently interviewed and examined the patient and verified the solorzano history and physical, reviewed labs and image studies and agree with findings and care plan noted above. Continuing to report pain. Has had pseudoseizure event and dry heaves. AAOx3, no resp distress. Acute on chronic abdominal pain/visceral hyperalgesia/SMA syndrome/adhesions Has been in contact with surgeon at [facility] for evaluation of SMA syn 04/26 but has to have appointments cancelled twice during this hospital stay. -current medication regimen - hydromorphone 2mgs q3hrs prn and 1mgs hs, oxycodone 10mgs q3hrs prn, fentanyl patch. -On 04/29 - spot doses for dry heaving associated pain added. To be strictly used only for that indication. -to continue to encourage utilization of non-narcotic option for pain control/modulation. On 04/28 - Discussed the care with patient and mom - discussed concern of extended IV narcotics over 3 wks with frequent recurrence of worsening symptoms. Discussed that this length of extended IV narcotics will lead to continually increased tolerance. Discussed that we are still hoping to have a Multidisciplinary team meeting to help with team approach for care in this complex setting. Case management in the process of doing it. Adrenal insufficiency - On Fludrocortisone 0.1mgs BID and hydrocortisone at home. -Will continue to wean IV hydrocortisone 50mgs BID and continue home dose fludrocortisone. 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 Patient has not yet heard from [facility] transplant surgeon regarding recent small bowel follow through. Patient states that, if possible, she is open to transferring care to a different hospitalist team. Review of Systems Review of Systems: Per HPI. Physical Exam Constitutional: WD/WN, vitals as above Respiratory: normal respiratory effort; no labored breathing Musculoskeletal: no cyanosis or clubbing, extremities motor strength 5/5 Skin: no rashes, warm and dry Psychiatric: A+Ox3, euthymic affect Results & Data Results & Data Vital Signs (Past 12 Hours) Vital Signs Temp Pulse Pulse Resp BP BP Pulse Ox 04/29/24 04:10 36.5 C 80 18 129/92 96 04/28/24 23:53 36.9 C 102 H 18 134/91 96 04/28/24 22:48 04/28/24 21:45 94 H 04/28/24 20:00 36.5 C 95 H 18 138/88 97 O2 Del Method 04/29/24 04:10 Room Air 04/28/24 23:53 Room Air 04/28/24 22:48 Room Air 04/28/24 21:45 04/28/24 20:00 Room Air Resident Activity Tracking Resident Involvement: Resident Care Provided Care Provided: Adult Hospital Medicine
[2024-04-29 08:29] LABS: Albumin Globulin Ratio 1.7 (0.9-2); Albumin Level 3.4 gm/dl (3.4-5.0); BUN Creatinine Ratio 28.6 (10-20); Bilirubin,Total 0.3 mg/dl (0.2-1.0); Calcium 8.4 mg/dl (8.6-10.3); Magnesium 2.2 mg/dl (1.7-2.4); Phosphorus 4.1 mg/dl (2.5-4.9); Potassium 3.5 mmol/L (3.5-5.1); Total Protein 5.4 gm/dl (6.0-8.3)
[2024-04-29] MEDS: fentaNYL 75 MCG/HR TDSY TD SCH (20:38)
[2024-04-29] MEDS: [UNRECOGNIZED DRUG - OTHER] IV SCH (21:41)
[2024-04-29] MEDS: PERIPHERAL TPN IV SCH (21:41)
[2024-04-29] MEDS: CHECK fentaNYL PATCH PLACEMENT SCH (23:54)
[2024-04-30] MEDS: LEVOTHYROXINE SODIUM 50 MCG TABLET PO SCH (05:04)
[2024-04-30 06:57] LABS: BUN Creatinine Ratio 23.3 (10-20); Calcium 8.4 mg/dl (8.6-10.3); Magnesium 2.2 mg/dl (1.7-2.4); Phosphorus 4.3 mg/dl (2.5-4.9)
--- NOTE | 2024-04-30 07:35 | Hospitalist Progress Note ---
Date of Service April 30, 2024 Assessment & Plan (1) Visceral hyperalgesia: (2) Severe protein-calorie malnutrition: (3) On total parenteral nutrition (TPN): (4) POTS (postural orthostatic tachycardia syndrome): (5) Seizure-like activity: Plan Pt is a 34 yo F with PMHx of gastroparesis with chronic abdominal pain s/p PEG and ostomy, hx SMA syndrome s/p multiple abdominal surgeries (appendectomy, cholecystectomy, hysterectomy, colectomy, and more), chronic pain syndrome (at times requiring ketamine), 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 1) Abdominal pain, acute on chronic - RUQ more than epigastric, continue supportive care - ddx being motility, adhesional, SMA obstruction --> no imaging done here, recent small bowel follow through at [facility] demonstrated extrinsic compression of duodenum, consistent with recurrence of SMA syndrome - further management pending discussion/follow up with [facility] transplant surgeon - Ativan, q6hrs alt w Zofran q6hrs (so she gets something q3), PRN, nausea - Pain regimen: Hopeful that pain meds can be transitioned to PO meds to facilitate eventual discharge - Dilaudid IV 1 mg HS + Dilaudid IV 2 mg q3hrs prn - for breakthrough pain + Dilaudid IV .5mg Q6hrs prn - for pain-induced dry heaving - Continue home regimen: Roxicodone 10 mg q3h, fentanyl and Ativan - Consider another multidisciplinary meeting to discuss standardized pain management protocol for future reference Outpatient Potential Therapies - Patient felt that some fatty acid chain enemas helped w/ the rectal pain the most before, but this appears to be an outpt Tx. - Patient is also considering use of a SCS (spinal cord stimulator) as an outpatient to find a way to decrease her opioid reliance 2) Acute dehydration - continue TPN, patient requests that lipids continue to be held 3) Transaminitis - Mild, trending down - likely to be TPN-related, less likely to be medicine-related as nothing on med list is obvious culprit - Okay to add back lipids to TPN whenever patient feels she can tolerate 4) Severe protein-calorie malnutrition - Monitor labs, continue TPN w/ electrolyte repletion as needed 5) Visceral hyperalgesia chronic pain management, supportive care, outpt surgery and pain management follow up - see above 6) Seizure-like activity PNES from pain - continue home Ativan 7) Endometriosis - norethindrone, 0.35 mg, PO, qAM (patient's own oral contraceptive) during hospital stay 8) TPN Feedings - TPN continues daily, home health [facility] to order outpt TPN close to time of discharge 10) POTS (postural orthostatic tachycardia syndrome)/Adrenal insufficiency Continue home dose of Fludrocortisone, continue hydrocortisone IV 50mg BID - patient received stress dosing for ~3 weeks, continue to taper until home dose reached. Code status: Full code Dispo: Med-Tele FENGI: TPN, PO intake as tolerated/desired VTE Prophylaxis: ambulation Admission and Anticipated Discharge Date Admission Date: April 06, 2024 Supervising Physician Co-Signing Physician Notes Attending Physician Supervision Note: I independently interviewed and examined the patient and verified the solorzano history and physical, reviewed labs and image studies and agree with findings and care plan noted above. Continuing to report pain and having pseudoseizure event and dry heaves. AAOx3, no resp distress. Acute on chronic abdominal pain/visceral hyperalgesia/SMA syndrome/adhesions Has been in contact with surgeon at [facility] for evaluation of SMA syn 04/26 but has to have appointments cancelled twice during this hospital stay. -current medication regimen - hydromorphone 2mgs q3hrs prn and 1mgs hs, oxycodone 10mgs q3hrs prn, fentanyl patch. -On 04/29 - spot doses for dry heaving associated pain added. To be strictly used only for that indication. -to continue to encourage utilization of non-narcotic option for pain control/modulation. On 04/28 - Discussed the care with patient and mom - discussed concern of extended IV narcotics over 3 wks with frequent recurrence of worsening symptoms. Discussed that this length of extended IV narcotics will lead to continually increased tolerance. Discussed that we are still hoping to have a Multidisciplinary team meeting to help with team approach for care in this complex setting. Case management in the process of doing it. Adrenal insufficiency - On Fludrocortisone 0.1mgs BID and hydrocortisone at home. -Will continue to wean IV hydrocortisone and continue home dose fludrocortisone. 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 Patient notes increased pain yesterday that resulted in dry-heaving, states that she was unaware of additional PRN medication that was available - will use as needed today. Review of Systems Review of Systems: Per HPI. Physical Exam Constitutional: WD/WN, vitals as above Respiratory: normal respiratory effort; no labored breathing Musculoskeletal: no cyanosis or clubbing, extremities motor strength 5/5 Skin: no rashes, warm and dry Psychiatric: A+Ox3, euthymic affect Results & Data Results & Data Vital Signs (Past 12 Hours) Vital Signs Temp Pulse Pulse Resp BP Pulse Ox O2 Del Method 04/30/24 03:36 36.3 C L 74 20 117/83 96 Room Air 04/29/24 22:51 36.8 C 97 H 18 149/100 H 97 Room Air 04/29/24 21:58 80 04/29/24 20:20 36.6 C 95 H 20 134/94 98 Room Air Resident Activity Tracking Resident Involvement: Resident Care Provided Care Provided: Adult Hospital Medicine
[2024-04-30] MEDS: HYDROmorphone INJ 0.5 MG/0.5 ML SYR IV PRN (12:54)
[2024-04-30] MEDS: HYDROmorphone INJ 0.5 MG/0.5 ML SYR IV ONE (17:24)
[2024-04-30] MEDS: PERIPHERAL TPN IV SCH (21:41)
[2024-04-30] MEDS: [UNRECOGNIZED DRUG - OTHER] IV SCH (21:41)
[2024-05-01 07:35] LABS: BUN Creatinine Ratio 28.3 (10-20); Calcium 8.4 mg/dl (8.6-10.3); Magnesium 2.2 mg/dl (1.7-2.4); Phosphorus 3.8 mg/dl (2.5-4.9); Potassium 3.7 mmol/L (3.5-5.1)
--- NOTE | 2024-05-01 08:03 | Hospitalist Progress Note ---
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 1) Abdominal pain, acute on chronic - RUQ more than epigastric, continue supportive care - ddx being motility, adhesional, SMA obstruction --> no imaging done here, recent small bowel follow through at [facility] demonstrated extrinsic compression of duodenum, consistent with recurrence of SMA syndrome - further management pending discussion/follow up with [facility] transplant surgeon - Ativan, q6hrs alt w Zofran q6hrs (so she gets something q3), PRN, nausea - Pain regimen: Hopeful that pain meds can be transitioned to PO meds to facilitate eventual discharge - Dilaudid IV 1 mg HS + Dilaudid IV 2 mg q3hrs prn - for breakthrough pain + Dilaudid IV .5mg Q6hrs prn - for pain-induced dry heaving - Continue home regimen: Roxicodone 10 mg q3h, fentanyl and Ativan - Consider another multidisciplinary meeting to discuss standardized pain management protocol for future reference Outpatient Potential Therapies - Patient felt that some fatty acid chain enemas helped w/ the rectal pain the most before, but this appears to be an outpt Tx. - Patient is also considering use of a SCS (spinal cord stimulator) as an outpatient to find a way to decrease her opioid reliance 2) Acute dehydration - continue TPN, patient requests that lipids continue to be held 3) Transaminitis - Mild, trending down - likely to be TPN-related, less likely to be medicine-related as nothing on med list is obvious culprit - Okay to add back lipids to TPN whenever patient feels she can tolerate 4) Severe protein-calorie malnutrition - Monitor labs, continue TPN w/ electrolyte repletion as needed 5) Visceral hyperalgesia chronic pain management, supportive care, outpt surgery and pain management follow up - see above 6) Seizure-like activity PNES from pain - continue home Ativan 7) Endometriosis - norethindrone, 0.35 mg, PO, qAM (patient's own oral contraceptive) during hospital stay 8) TPN Feedings - TPN continues daily, home health [facility] to order outpt TPN close to time of discharge 10) POTS (postural orthostatic tachycardia syndrome)/Adrenal insufficiency Continue home dose of Fludrocortisone, continue hydrocortisone IV 50mg BID - patient received stress dosing for ~3 weeks, continue to taper until home dose reached. Code status: Full code Dispo: Med-Tele FENGI: TPN, PO intake as tolerated/desired VTE Prophylaxis: ambulation Admission and Anticipated Discharge Date Admission Date: April 06, 2024 Supervising Physician Co-Signing Physician Notes Attending Physician Supervision Note: I independently interviewed and examined the patient and verified the solorzano history and physical, reviewed labs and image studies and agree with findings and care plan noted above. Reported feeling better today. AAOx3, no resp distress. Acute on chronic abdominal pain/visceral hyperalgesia/SMA syndrome/adhesions Has been in contact with surgeon at [facility] for evaluation of SMA syn 04/26 but has to have appointments cancelled twice during this hospital stay. -current medication regimen - hydromorphone 2mgs q3hrs prn and 1mgs hs, oxycodone 10mgs q3hrs prn, fentanyl patch. -On 04/29 - spot doses for dry heaving associated pain added. To be strictly used only for that indication. -to continue to encourage utilization of non-narcotic option for pain control/modulation. On 04/28 - Discussed the care with patient and mom - discussed concern of extended IV narcotics over > 3 wks with frequent recurrence of worsening symptoms. Discussed that this length of extended IV narcotics will lead to continually increased tolerance. Discussed that we are still hoping to have a Multidisciplinary team meeting to help with team approach for care in this complex setting. Case management in the process of arrangin it. Adrenal insufficiency - On Fludrocortisone 0.1mgs BID and hydrocortisone at home. -Switched hydrocortisone to PO 10mgs BID 05/01. continue home dose fludrocortisone. 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 Patient reports pain-associated dry-heaving yesterday due to occasional delays in getting scheduled medications. Otherwise, condition largely unchanged. Review of Systems Review of Systems: Per HPI. Physical Exam Constitutional: WD/WN, vitals as above Respiratory: normal respiratory effort; no labored breathing Musculoskeletal: no cyanosis or clubbing, extremities motor strength 5/5 Skin: no rashes, warm and dry Psychiatric: A+Ox3, euthymic affect Results & Data Results & Data Vital Signs (Past 12 Hours) Vital Signs Temp Pulse Pulse Resp BP Pulse Ox O2 Del Method 05/01/24 07:21 78 04/30/24 23:44 36.8 C 108 H 20 127/88 98 Room Air 04/30/24 22:00 94 H Resident Activity Tracking Resident Involvement: Resident Care Provided Care Provided: Adult Hospital Medicine
[2024-05-01] MEDS: HYDROCORTISONE SOD 50 MG in SYRINGE 0 ML IV SCH (08:27)
[2024-05-01] MEDS: PERIPHERAL TPN IV SCH (21:08)
[2024-05-01] MEDS: [UNRECOGNIZED DRUG - OTHER] IV SCH (21:08)
[2024-05-02 06:51] LABS: Calcium 8.4 mg/dl (8.6-10.3); Magnesium 2.1 mg/dl (1.7-2.4)
[2024-05-02 06:57] LABS: BUN Creatinine Ratio 26.6 (10-20); Creatinine Clr Calc Pharmacy 118.1 ml/min; Phosphorus 4.1 mg/dl (2.5-4.9)
[2024-05-02] MEDS: HYDROCORTISONE 10 MG TAB PO SCH (08:16)
--- NOTE | 2024-05-02 12:33 | Pharmacy Report ---
Pharmacy PN Follow-up Note - Date of Service May 02, 2024 - Subjective Patient is currently on day #20 of TPN for chronic home TPN use, gastroparesis. - Objective Height & Weight (Last Documented) Height 5 ft 6 in Weight 66.3 kg Diet Order(s) 04/06/24 Dinner Diet Intake & Ouput (24hrs) 05/01/24 05/02/24 05/03/24 06:59 06:59 06:59 Intake Total 2759.067 / 2759.067 2958.067 / 2958.067 Output Total 150 / 150 375 / 375 Balance 2609.067 / 2609.067 2583.067 / 2583.067 Selected Laboratory Results 05/02/24 06:06 Sodium 139 Potassium 4.0 Chloride 103 Carbon Dioxide 31 Anion Gap 5 BUN 17 Creatinine 0.64 BUN/Creatinine Ratio 26.6 H Glucose 103 H Calcium 8.4 L Phosphorus 4.1 Magnesium 2.1 - Assessment & Plan Assessment: 05/02: * Patient continues with peripheral concentration of Clinimix infused through central port due to critical Clinimix 8/14 shortage. * Titrating calcium content closer to home dosage of 20mEq per day, currently 18.6mEq * No lipids received this admission per patient request, triglyceride level tomorrow with labs. 04/27: * Minor changes to TPN, continue with peripheral concentration of Clinimix infused through central port due to critical Clinimix 8/14 shortage. * Titrating calcium content closer to home dosage of 20mEq per day * Potassium level variable, will continue to titrate levels in bag * 50gm lipids ordered again today, continue to monitor triglyceride levels, and dose as tolerated due to slight decrease in overall caloric content with peripheral Clinimix 04/22: * Labs have been stable with minor changes. * Potassium slightly elevated this AM. Suspect drawn from same line as TPN as glucose was significantly elevated as well (no prior glycemic issues noted). Will reduce potassium content slightly, but pharmacy will continue to trend daily. * Critical shortage of Clinimix 8/14 at this time. Discussed with Dr. Ceja and dietary. Ok to switch to peripheral concentration (Clinimix 4.25/5%) with a larger volume (~1100 mL/day to ~2100mL/day) with slight caloric intake decrease but similar AA/dextrose profile. Resident team to monitor for fluid overload daily along with normal labs. Will try to give a dose of lipids today and then 2x weekly to make up minor caloric decrease with the formulation switch. Will monitor TG trend daily. * Will still infuse per central line although using peripheral Clinimix formulation 04/17 * Yesterday changed TPN to have a similar formulation to her previous TPNs * Potassium trending low, slightly increased potassium content, no other changes * Held lipids due to elevated triglycerides and per patient request over the weekend. Plan: * For Day #20 of TPN administration, the following will be ordered: * Macronutrients: * Amino Acids: 85 grams/day * Dextrose: 100 grams/day * Lipids: 0 * Micronutrients: * Sodium phosphate: 6 mMol/day * Sodium chloride: 80 mEq/day * Potassium acetate: 80 mEq/day * Magnesium sulfate: 8.12 mEq/day * Calcium gluconate: 18.6 mEq/day * Thiamine: 100 mg/day * Total volume of 2117 mL will be infused over 18 hours and will provide 680 kcal/day * Labs will be ordered per PN protocol. * Pharmacy will follow and adjust PN orders on a daily basis. Thank you!
--- NOTE | 2024-05-02 13:31 | Discharge Summary ---
Date of Service May 02, 2024 Admission HPI Per Admitting Provider ~2 days of abrupt worsening of abdominal pain - R upper abdomen in area near/just superior to ostomy. along with this significant worsening in overall pain as well as nausae/vomiting. what little PO she had been able to take in now all just ends up vomited out. this is superimposed on ~3-4 months of a backwards trend in ability to take in PO/pain control - although last 2 days abrupt and significant worsening ostomy output - less but still present lots of vomiting some pseudoseizure episodes last few days - more than usual due to more pain/vomiting/etc in chronic w/u for last several months of worsening - had small bowel follow through showing findings concerning for SMA region narrowing/obstruction as well as possibly adhesional funneling near ostomy Admission Exam Per Admitting Provider aaox3 pleasant but ill and vomits a few times during interview, laying on side predominantly, appearing in some degree of pain as well. heent nc at mmm llungs cta b/l no r/r/w good effort skin no rashes no pallor or icterus abd soft PEG site intact no erythema ostomy appears intact bag in place draining a small amount of thin yellow stool (vomitus also thin yellow) RUQ very tender without guarding/rebound/rigidity/masses Principal Diagnosis SMA syndrome; acute on chronic abdominal pain Discharge Exam General:Alert and oriented, no acute distress HEENT: Normocephalic, moist oral mucosa, Cardio: Regular rate and rhythm, Resp:No increased resp effort, no resp distress Abdomen: no cellulitic changes in the skin surrounding colostomy, generalized tenderness to palpation more marked in right upper quadrant Skin: Warm, pink, dry Discharge Data Allergies Allergy/AdvReac Type Severity Reaction Status Date / Time diphenhydramine Allergy Severe Anaphylaxis Verified 03/16/24 14:05 promethazine Allergy Severe hives, Verified 03/16/24 14:05 throat swelling adhesive Allergy Intermediate Redness of Verified 03/16/24 14:05 Skin amoxicillin Allergy Intermediate RASH Verified 03/16/24 14:05 azithromycin [From Zithromax] Allergy Intermediate RASH/VOMITI Verified 03/16/24 14:05 NG calcium Allergy Intermediate SEE COMMENT Verified 03/16/24 14:05 [From VIACTIV Multi-Vitamin] cefazolin Allergy Intermediate rash Verified 03/16/24 14:05 Cephalosporins Allergy Intermediate HIVES Verified 03/16/24 14:05 clavulanic acid Allergy Intermediate HIVES Verified 03/16/24 14:05 ferric carboxymaltose Allergy Intermediate Rash Verified 03/16/24 14:05 [From Injectafer] folic acid Allergy Intermediate SEE COMMENT Verified 03/16/24 14:05 [From VIACTIV Multi-Vitamin] iron [From Venofer] Allergy Intermediate Muscle Pain Verified 03/16/24 14:05 multivitamin with minerals Allergy Intermediate SEE COMMENT Verified 03/16/24 14:05 [From VIACTIV Multi-Vitamin] Penicillins Allergy Intermediate HIVES Verified 03/16/24 14:05 prochlorperazine Allergy Intermediate HIVES Verified 03/16/24 14:05 sulfamethoxazole Allergy Intermediate RASH Verified 03/16/24 14:05 sumatriptan Allergy Intermediate RASH Verified 03/16/24 14:05 trimethoprim Allergy Intermediate RASH Verified 03/16/24 14:05 metoclopramide AdvReac Severe anxiety/ Verified 03/16/24 14:05 jittery morphine AdvReac Severe Severe Verified 03/16/24 14:05 abdominal Pain, sphincter of oddi spasms erythromycin base AdvReac Intermediate GI SYMPTOMS Verified 03/16/24 14:05 citalopram [From Celexa] AdvReac Unknown CAN'T Verified 03/16/24 14:05 REMEMBER Hospital Course (1) Visceral hyperalgesia: (2) Severe protein-calorie malnutrition: (3) On total parenteral nutrition (TPN): (4) POTS (postural orthostatic tachycardia syndrome): (5) Seizure-like activity: Plan Pt is a 34 yo F with PMHx of gastroparesis with chronic abdominal pain s/p PEG and ostomy, hx SMA syndrome s/p multiple abdominal surgeries (appendectomy, cholecystectomy, hysterectomy, colectomy, and more), chronic pain syndrome (at times requiring ketamine), 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 1) Abdominal pain, acute on chronic - RUQ more than epigastric, continue supportive care - ddx being motility, adhesional, SMA obstruction --> no imaging done here, recent small bowel follow through at [facility] demonstrated extrinsic compression of duodenum, consistent with recurrence of SMA syndrome - Pain regimen includes Dilaudid IV 1 mg HS + Dilaudid IV 2 mg q3hrs prn - for breakthrough pain + Dilaudid IV .5mg Q6hrs prn - for pain-induced dry heaving, as well as home regimen which includes Roxicodone 10 mg q3h, fentanyl and Ativan; poor control of pain - Ativan, q6hrs alt w Zofran q6hrs (so she gets something q3), PRN, nausea although more controlled - Patient with persistence of pain that is consistently >8/10 in intensity despite frequent adjustment of analgesic regimen, will transfer to [facility] as this is where her General Surgeon (transplant surgeon). Discussed case with Dr. Jose David Green and patient was accepted for transfer. 2) Acute dehydration - continue TPN, patient requests that lipids continue to be held 3) Transaminitis - Mild, trending down - likely to be TPN-related, less likely to be medicine-related as nothing on med list is obvious culprit - Okay to add back lipids to TPN whenever patient feels she can tolerate 4) Severe protein-calorie malnutrition - Monitor labs, continue TPN w/ electrolyte repletion as needed 5) Visceral hyperalgesia - see above 6) Seizure-like activity PNES from pain - continue home Ativan 7) Endometriosis - norethindrone, 0.35 mg, PO, qAM (patient's own oral contraceptive) during hospital stay 10) POTS (postural orthostatic tachycardia syndrome)/Adrenal insufficiency Continue home dose of Fludrocortisone, continue hydrocortisone IV 50mg BID - patient received stress dosing for ~3 weeks, continue to taper until home dose reached. Total Time Total Time Spent Total Time Spent (In Minutes): As per attending attestation. Discharge Plan Discharge Items Patient Disposition: Transfer Acute Care Hospital Reason For Visit: SBO Discharge Diagnosis: SMA syndrome, acute on chronic abdominal pain Activity: Resume your previous activity Non-emergency contact: Primary Care Provider Call non-emergency contact if: your symptoms worsen, your pain is not controlled and your temperature is above 101 Follow-up/Referrals: Mariah Addison DO [Primary Care Provider] - Diet: Other - See Diet Comment Diet Comment: TPN Addtl Attending Provider Instructions: You were admitted to the hospital due to abdominal pain, likely exacerbated by recurrence of SMA syndrome as noted on your recent small bowel follow through study. It is also possible that recurrent adhesions or motility issues may be contributing to your symptoms. You were managed with supportive care that included fluids and pain control. Given how your symptoms were not well controlled despite changes in your pain medications, we contacted [facility] to discuss a transfer to their hospital for further evaluation and management. Pending Studies at Discharge: No Stand-Alone Forms: My [employer], Smoking Cessation Skilled Items Patient informed of condition?: Yes DNR: No Discharge Level of Care: Other Communicable Disease: No Discharge Prognosis: Stable Lines: None Urinary Catheter: No Medications and DC Order Prescriptions: Continued pyridoxine (vitamin B6) 50 mg tablet 50 mg PO QAM famotidine 40 mg tablet 20 mg PO BID Rx Instructions: 1/2 tablet dose hydrocortisone 10 mg tablet See Rx Instructions .ROUTE .COMPLEX Hold Instructions: Resume on 10/27/22. Please take hydrocortisone 25mg in the morning and 20mg in the afternoon until your thursday followup with endocrinology Rx Instructions: TAKE 15 MG EVERY MORNING AND 10 MG EVERY AFTERNOON dicyclomine 10 mg Capsule 20 mg PO Q6H PRN (Reason: Abdominal Pain) pantoprazole [Protonix] 40 mg tablet,delayed release (DR/EC) 40 mg PO QAM fexofenadine 180 mg Tablet 180 mg PO HS methocarbamol 750 mg Tablet 750 mg PO TID cholecalciferol (vitamin D3) [Vitamin D3] 25 mcg (1,000 unit) Capsule 50 mcg PO QAM duloxetine 60 mg capsule,delayed release(DR/EC) 60 mg PO QAM ondansetron 8 mg tablet,disintegrating 8 mg PO TID PRN (Reason: Nausea) lorazepam [Ativan] 2 mg/mL Solution 0.5 mg buccal QID PRN (Reason: Nausea) Qty: 100 0RF Rx Instructions: DIRECTED 0.5 MG (0.25 ML) bethanechol chloride 25 mg Tablet 12.5 mg PO BID PRN (Reason: urinary retention) Qty: 20 0RF levothyroxine [Synthroid] 50 mcg tablet 50 mcg PO QAM fludrocortisone 0.1 mg tablet 0.1 mg PO BID acetaminophen [Tylenol Extra Strength] 500 mg Tablet 1,000 mg PO Q6H PRN (Reason: Pain) multivit with min-folic acid [Multivitamin Gummies] 200 mcg Tablet,Chewable 2 tab PO HS turmeric 400 mg Capsule 400 mg PO HS Rx Instructions: Takces 1 cap daily coenzyme Q10 [CoQ-10] 100 mg capsule 100 mg PO PM Rx Instructions: Takes 1 tab daily (DME) Enema Bottle Bottle See Rx Instructions .Route Qty: 72 0RF Rx Instructions: As directed calcium carbonate 500 mg calcium (1,250 mg) Tablet 250 mg PO QPM norethindrone (contraceptive) 0.35 mg tablet 0.35 mg PO QAM oxycodone 5 mg/5 mL Solution 7.5 mg PO Q4H PRN (Reason: pain) Qty: 840 0RF fentanyl 75 mcg/hr patch 72 hour 1 patch transdermal Q72H Qty: 10 0RF gabapentin 250 mg/5 mL solution 900 mg PO TID 30 Days Qty: 1620 0RF Discharge Orders: Discharge Order (Routine); Ordered 05/02/24 Ordered By: Josie Sarmiento Admission Data Admit Date/Time: 04/06/24 13:01 Attending Provider: Ramses Layne Admit Provider: Ramses Layne Primary Care Provider: Mariah Addison Other Providers: Ramses Layne Supervising Physician Co-Signing Physician Notes I personally examined the patient and verified all solorzano points of history and exam, discussed case, and agree with decision making with Dr Sarmiento feeling worse. Ongoing pain. Vitals noted, in general she is awake and alert appears fatigued and more uncomfortable than whenever I last saw her. Abdomen is soft but diffusely tender no guarding rebound or rigidity. Intractable abdominal painseems to be more adhesional or SMA syndrome then visceral hyperalgesia or purely functionalespecially given that we have been attempting conservative care for several weeks with no significant improvement. After discussion with patient, call was made to her transplant team at [facility] who graciously accepted her in transfercertainly we are concerned that she may have an adhesional issue that would require surgery to remedy versus less likely something with her SMA pathology that would require surgery to remedy; at the same time it sounds like her transplant team had reached out to her and said that the surgeon had reviewed the films from a few weeks ago and was concerned she would probably need surgery at some pointwith them being unaware that she had been in the hospital for several weeks. for transfer once bed available Resident Activity Tracking Resident Involvement: Resident Care Provided Care Provided: Adult [facility]
[2024-05-02] MEDS: HYDROmorphone INJ 0.5 MG/0.5 ML SYR IV ONE (18:04)
[2024-05-02] MEDS: HYDROmorphone INJ 2 MG/ML SYR/VIAL IV STA (18:28)
--- NOTE | 2024-05-02 18:36 | Billing Data ---
Date of Service May 02, 2024 Coding Level of Care Code 53108 IN/OBS DISCH 30 MIN/LESS
[2024-05-02] MEDS: PERIPHERAL TPN IV SCH (21:51)
[2024-05-02] MEDS: [UNRECOGNIZED DRUG - OTHER] IV SCH (21:51)
[2024-05-02] MEDS: HYDROmorphone INJ 2 MG/ML SYR/VIAL IV SCH (22:59)
[2024-05-03 07:40] LABS: BUN Creatinine Ratio 27.1 (10-20); Calcium 8.7 mg/dl (8.6-10.3); Creatinine Clr Calc Pharmacy 128.1 ml/min; Magnesium 2.2 mg/dl (1.7-2.4); Phosphorus 4.5 mg/dl (2.5-4.9)
[2024-05-03 08:24] VITALS: PULSE 83; RESP 16; TEMP 97.9; O2SAT 96
--- NOTE | 2024-05-03 09:39 | Communication Note ---
Date of Service: May 02, 2024 Patient still in pain despite analgesics. Needs to change colostomy but has hx of pain with doing so and thus triggering pseudoseizures. Ordered Dilaudid 2 mg to help her with the pain to change her colostomy. Coordinated transfer to [facility] given conservative measures have not provided pain relief, and possible need for surgical intervention. Paperwork completed and pending bed availability. Bed at [facility] became available overnight, but no transportation available at the time, therefore patient stayed an additional night. Resident Activity Tracking Resident Involvement: Resident Care Provided Care Provided: Adult Hospital Medicine
[2024-05-03 10:35] VITALS: BP 128/87
--- NOTE | 2024-05-03 14:31 | Billing Data ---
Date of Service May 03, 2024 Coding Level of Care Code 49162 IN/OBS DISCH 30 MIN/LESS
--- NOTE | 2024-05-03 14:31 | Billing Data ---
Date of Service May 02, 2024 Coding Level of Care Code 70563 SUB INP/OBS CARE MIN
--- NOTE | 2024-05-03 14:33 | Communication Note ---
Date of Service: May 02, 2024 late addendum - date of service 05/02 feeling bad ongoing pain ok w transfer to [facility] vitals noted fatigued and mildly uncomfortable abdominal pain - failure to progress despite a long course of conservative care - concerned that lysis of adhesions or other procedures may be needed - for transfer to [facility]; in the meantime, re-escalate pain control otherwise as per residency team
[2024-05-03] MEDS ORDERED: PERIPHERAL TPN IV SCH (21:00)
[2024-05-03] MEDS ORDERED: [UNRECOGNIZED DRUG - OTHER] IV SCH (21:00)
== END 2024-05-03 10:39 | disposition short-term general hospital (02) | DRG 393 ==
LOC: SUATTDRO 13:01 → 3E 13:21 → 2W 04-15 12:08

== ENCOUNTER 2024-10-12 12:09 | Inpatient (IN) ==
--- NOTE | 2024-10-12 12:43 | Emergency Department Note ---
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 She has ongoing abdominal pain and issues with SMA syndrome. She has undergone 2 previous surgeries in [place] for SMA syndrome and is scheduled for a third. The first 2 surgeries failed. She has had a colectomy and, currently has an ileostomy. She has a G-tube for drainage. The patient has had abdominal pain and dry heaving has been quite severe all day today. The pain is in the right upper quadrant. The patient was at her doctor's office, she was very uncomfortable and had a pseudoseizure, she was referred to the hospital by ambulance. The patient's mother is at bedside, the patient has had presentations similar to this in the past. Basically, she has pseudoseizures when her pain is out of control. She typically receives Ativan, Zofran, IV fluids and Dilaudid. No cough or congestion. No respiratory complaints. PMHx/PSHx/Social Hx: See Below PHYSICAL EXAM: GENERAL: Patient is in moderate distress from pain, dry heaving. Lying on her left side in the position. HEENT: No acute trauma, normocephalic atraumatic, mucous membranes moist, no nasal congestion. NECK: No stridor, no adenopathy, no meningismus, trachea is midline. LUNGS: Clear to auscultation bilaterally, no wheeze, no rhonchi, breath sounds equal. HEART: Without murmurs gallops or rubs, regular rate and rhythm. ABDOMEN: Soft, tender in the right upper quadrant. No distention. There is an ileostomy on the right and a G-tube for drainage on the left. EXTREMITIES: No cyanosis, full range of motion of all the joints without pain or difficulty. NEUROLOGIC: Oriented x 3, no acute motor or sensory deficits, no focal weakness. SKIN: No jaundice, no diaphoresis. DIFFERENTIAL DIAGNOSIS: Bowel obstruction, acute on chronic abdominal pain, electrolyte imbalance, anemia, dehydration, among others. EMERGENCY DEPARTMENT PROCEDURES: MEDICAL DECISION MAKING: There is no leukocytosis. There is no anemia. There is a normal platelet count. No bandemia. No renal failure or significant electrolyte abnormality. No concerning liver enzyme elevation. No evidence for pancreatitis. Urinalysis did not show findings of infection. Abdominal and pelvis CT did not show any acute surgical pathology or bowel obstruction. On exam, the patient was complaining of right upper quadrant abdominal pain and dry heaving. She was not toxic or febrile. The patient was made a priority by the nursing staff. She had suffered seizure- like activity but, when she is in pain, has pseudoseizures. The patient was given IV Dilaudid for pain control, she received IV Zofran, IV Ativan, 2 L of IV saline. With the above intervention, the patient was feeling improved but not well enough for discharge home, she has been hospitalized before for previous issues with pain, pseudoseizures and dehydration. She has ongoing gut issues. I did speak with the patient and mother, hospitalization did seem warranted. I spoke with case management, the on-call hospitalist was consulted. Prior/Outside records/notes reviewed: Today's EMS notes describing her presentation and transport at this hospital. Imaging/x-ray results per my interpretation: Chronic Medical/Social conditions affecting care: History of pseudoseizures and chronic abdominal pain status post failed abdominal surgery for SMA syndrome Care/Management discussed with: Case management, the on-call hospitalist. Level of care consideration(s): After review of the information above and other included data: --I believe the patient requires escalation of care to admission DISPOSITION: Admission Past Med/Surg History Problem List (Updated 10/13/24 @ 11:57 by Kirk Caldera MD) SMAS (superior mesenteric artery syndrome) (Acute) Vomiting (Acute) Seizure-like activity (Acute) Acute dehydration (Acute) RUQ abdominal pain (Acute) Septic pulmonary embolism MSSA bacteremia Port-A-Cath in place Discharge planning issues DVT prophylaxis Methicillin susceptible Staphylococcus aureus infection Central line infection Pseudomonas aeruginosa infection Visceral hyperalgesia Palliative care encounter Right ankle sprain (Acute) Encounter for care related to vascular access port Iron deficiency anemia Syncope Seizure-like activity Witnessed seizure-like activity (Acute) Hypokalemia Malnutrition Transaminitis B12 deficiency Folate deficiency Diversion colitis Intestinal motility disorder (Chronic) Candidiasis of mouth and esophagus Severe protein-calorie malnutrition Abdominal pain, chronic, generalized (Chronic) Adrenal insufficiency On total parenteral nutrition (TPN) (Chronic) Acute kidney insufficiency Tachycardia (Acute) Acute dehydration (Acute) Epigastric abdominal pain (Acute) Chronic migraine without aura Hypokalemia Hypomagnesemia Hypokalemia Enteritis (Acute) Hypophosphatemia (Acute) Endometriosis has had 3 surgeries for this. Last surgery 2018 Jejunal intussusception Sinus tachycardia Hypotension Secondary hyperparathyroidism Hypocalcemia Diarrhea (Acute) Hypophosphatemia (Acute) Chronic migraine (Chronic) Anemia Gastroparesis Sphincter of Oddi spasm Fever Hypokalemia Vomiting (Acute) Urinary retention (Acute) UTI (urinary tract infection) (Acute) resolved S/P cholecystectomy 2014 Post-op pain (Acute) Hypotension Hemorrhagic cystitis (Acute) hx Head injury (Acute) Concussion (Acute) Bilious vomiting (Acute) Allergic reaction caused by a drug Allergic reaction Asthma (Chronic) Abnormal MRI, kidney (Acute) Acute right flank pain (Acute) Right flank pain (Acute) Bilateral flank pain (Acute) Appendicitis, acute (Acute 11/07/13) Medical History Endometrioma of ovary Urinary dysfunction Abdominal pain Pain disorder Generalized abdominal pain Hx of Clostridium difficile infection 5 years ago, tx. 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 carroll, [facility] Spinal cord stimulator status trial implanted 03/02/23, in dr. ramírez's office>advised to bring remote Chronic, continuous use of opioids Difficult intravenous access Intractable pain Abdominal pain Elevated lipase Transaminitis Colitis Chronic malnutrition Gastrostomy tube in place Intussusception hx PICC (peripherally inserted central catheter) in place TPN Pancreatitis hx Sphincter of Oddi dysfunction DECREASED GI MOTILITY Uses feeding tube gastroparesis and decreased GI motility can not tolerate feeding and uses TPN Epigastric abdominal pain Nausea Surgical History H/O bilateral oophorectomy History of removal of Port-a-Cath (12/03/23) Port Removal(Right) - Jr Collins, DO, FACS History of lysis of adhesions History of liver biopsy 2023 Hx of exploratory laparotomy History of esophagogastroduodenoscopy (EGD) Ileostomy status Hx of ileostomy Hx of colonoscopy during procedure perforated small bowel 10/27/2019 at [facility], subsequent repair of duodenal area. History of bowel resection Part of duodenum removed due to necrosis; done at [facility] 2019 History of removal of Port-a-Cath 10/13/[address] Geiger, [facility], due to bacteremia/sepsis.; "inserted and removed multiple times" History of hysterectomy 09/27/19 History of appendectomy History of vascular access device 2018; implanted and removed "several" times Family History Father Hyperlipidemia Other No significant family history Social History Smoking Status: Never smoker Second Hand Exposure: No; Do You Dip or Chew Tobacco: No; Tobacco Cessation Education Requested by Patient: No Hx Alcohol Use: No Hx Substance Use: No Preferred Language: Kosovan Communication Ability: Effective Visual Impairment: No Limitations Hearing Ability: Normal 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 Beliefs That Will Affect Care: None marital status: Single Current Living Situation: Parent Current Living Situation Comment: Patient lives at home with both parents current occupational status: unemployed current occupation: completed 4-year degree at [employer] How many Children do You have: 0 Other Information That Helps Us Care for You: No Feels Safe at Home: Yes Safety Concerns: Feels Safe At This Time Diet: regular Sexual Activity Comment: not sexually active Assistive Devices: Contacts and Glasses Allergies Allergies Allergy/AdvReac Type Severity Reaction Status Date / Time diphenhydramine Allergy Severe Anaphylaxis Verified 10/12/24 15:33 promethazine Allergy Severe hives, Verified 10/12/24 15:33 throat swelling adhesive Allergy Intermediate Redness of Verified 10/12/24 15:33 Skin amoxicillin Allergy Intermediate RASH Verified 10/12/24 15:33 azithromycin [From Zithromax] Allergy Intermediate RASH/VOMITI Verified 10/12/24 15:33 NG calcium Allergy Intermediate SEE COMMENT Verified 10/12/24 15:33 [From VIACTIV Multi-Vitamin] clavulanic acid Allergy Intermediate HIVES Verified 10/12/24 15:33 ferric carboxymaltose Allergy Intermediate Rash Verified 10/12/24 15:33 [From Injectafer] folic acid Allergy Intermediate SEE COMMENT Verified 10/12/24 15:33 [From VIACTIV Multi-Vitamin] iron [From Venofer] Allergy Intermediate Muscle Pain Verified 10/12/24 15:33 multivitamin with minerals Allergy Intermediate SEE COMMENT Verified 10/12/24 15:33 [From VIACTIV Multi-Vitamin] Penicillins Allergy Intermediate HIVES Verified 10/12/24 15:33 prochlorperazine Allergy Intermediate HIVES Verified 10/12/24 15:33 sulfamethoxazole Allergy Intermediate RASH Verified 10/12/24 15:33 sumatriptan Allergy Intermediate RASH Verified 10/12/24 15:33 trimethoprim Allergy Intermediate RASH Verified 10/12/24 15:33 ascorbic acid Allergy profiled Verified 10/13/24 11:39 from "external allergies" cefazolin Allergy cefazolin=ADR, Verified 10/13/24 11:38 cephalosporins=hives metoclopramide AdvReac Severe anxiety/ Verified 10/12/24 15:33 jittery morphine AdvReac Severe Severe Verified 10/12/24 15:33 abdominal Pain, sphincter of oddi spasms erythromycin base AdvReac Intermediate GI SYMPTOMS Verified 10/12/24 15:33 citalopram [From Celexa] AdvReac Unknown CAN'T Verified 10/12/24 15:33 REMEMBER latex AdvReac profiled Verified 10/13/24 11:38 from external allergies scopolamine AdvReac skin Verified 10/13/24 11:42 irritation,profiled from "external allergies" Home Meds Home Medications Medication Instructions Recorded Confirmed dicyclomine 10 mg capsule 20 mg PO Q6H PRN Abdominal Pain 03/07/18 10/12/24 pantoprazole 40 mg tablet,delayed 40 mg PO QAM 09/08/19 10/12/24 release (Protonix) famotidine 40 mg tablet 20 mg PO BID 11/28/19 10/12/24 hydrocortisone 10 mg tablet See Rx Instructions .Route .COMPLEX 02/07/20 10/12/24 fexofenadine 180 mg tablet 180 mg PO HS 10/09/20 10/12/24 fludrocortisone 0.1 mg tablet 0.1 mg PO BID 12/12/20 10/12/24 acetaminophen 500 mg tablet 1,000 mg PO Q6H PRN Pain 06/13/21 10/12/24 (Tylenol Extra Strength) multivitamin with minerals-folic 2 tab PO HS 06/13/21 10/12/24 acid 200 mcg chewable tablet (Multivitamin Gummies) turmeric 400 mg capsule 400 mg PO HS 06/13/21 10/12/24 cholecalciferol (vitamin D3) 25 50 mcg PO QAM 04/07/22 10/12/24 mcg (1,000 unit) capsule (Vitamin D3) duloxetine 60 mg capsule,delayed 60 mg PO QAM 04/07/22 10/12/24 release methocarbamol 750 mg tablet 750 mg PO TID 04/07/22 10/12/24 coenzyme Q10 100 mg capsule 100 mg PO QPM 07/22/22 10/12/24 (CoQ-10) pyridoxine (vitamin B6) 50 mg 50 mg PO QAM 07/22/22 10/12/24 tablet ondansetron 8 mg disintegrating 8 mg PO TID PRN Nausea 10/06/22 10/12/24 tablet levothyroxine 50 mcg tablet 50 mcg PO QAM 03/04/23 10/12/24 (Synthroid) oxycodone 20 mg/mL oral concentrate 5 mg PO Q4H PRN Pain, Moderate 07/25/24 10/12/24 clindamycin phosphate 1 % topical 1 applic topical DIRECTED 09/07/24 10/12/24 gel estradiol 0.025 mg/24 hr 0.025 mg transdermal 2XWK 09/07/24 10/12/24 semiweekly transdermal patch fentanyl 50 mcg/hr transdermal 50 mcg transdermal Q72H 09/07/24 10/12/24 patch lorazepam 2 mg/mL oral concentrate 1 mg PO DIRECTED PRN 09/07/24 10/12/24 ANXIETY/SLEEP Previous Rx's Medication Instructions Recorded gabapentin 250 mg/5 mL oral 900 mg (18 mL) PO TID 30 days 12/15/23 solution #1,620 mL Results & Data (ED) Vital Signs Vital Signs - 24 hr 10/12/24 12:18 10/12/24 12:18 10/12/24 12:44 Temperature 36.6 C Temperature Source Oral Pulse Rate 109 H 111 H Pulse Rate [Apical] Pulse Rhythm Pulse Rhythm [Apical] Pulse Strength [Apical] Respiratory Rate 18 Respiratory Effort / Characteristics Respiratory Depth Respiratory Pattern Blood Pressure 119/81 Blood Pressure [Right Arm] Blood Pressure Mean 93 Blood Pressure Mean [Right Arm] Blood Pressure Position [Right Arm] Pulse Oximetry 96 Oxygen Delivery Method Room Air Room Air Sepsis New/Unexplained Change in Mental Status No Sepsis Action Taken by Nursing No Action Required 10/12/24 12:47 10/12/24 13:08 10/12/24 15:00 Temperature Temperature Source Pulse Rate 87 Pulse Rate [Apical] 81 90 Pulse Rhythm Regular Pulse Rhythm [Apical] Regular Regular Pulse Strength [Apical] Normal Normal Respiratory Rate 19 11 L 20 Respiratory Effort / Characteristics Non-Labored Spontaneous Non-Labored Spontaneous Respiratory Depth Normal Normal Respiratory Pattern Regular Regular Blood Pressure Blood Pressure [Right Arm] 112/88 118/92 Blood Pressure Mean Blood Pressure Mean [Right Arm] 96 100 Blood Pressure Position [Right Arm] Lying Lying Pulse Oximetry 97 97 95 Oxygen Delivery Method Room Air Room Air Room Air Sepsis New/Unexplained Change in Mental Status Sepsis Action Taken by Detention Medications Current Medication List: was personally reviewed by me Laboratory Data Attestation: I reviewed the patient's lab results. 10/13/24 10:05 10/13/24 10:05 Lab Results 10/12/24 10/12/24 Range/Units 12:19 12:20 WBC 5.72 (4.8-10.8) K/ul RBC 4.21 (4.20-5.40) M/uL Hgb 12.6 (12.0-16.0) g/dl Hct 38.1 (37.0-47.0) % MCV 90.5 (80.0-100.0) fL MCH 29.9 (25.0-34.0) pg MCHC 33.1 (32.0-36.0) g/dL RDW Std Deviation 51.1 H (36.4-46.3) fL RDW Coeff of Tim 15.4 H (11.5-14.5) % Plt Count 277 (130-400) K/uL MPV 9.9 (9.4-12.4) fL Immature Gran % (Auto) 0.2 % Neut % (Auto) 67.5 % Lymph % (Auto) 18.7 % Cuming % (Auto) 10.3 % Eos % (Auto) 2.8 % Baso % (Auto) 0.5 % Neut # (Auto) 3.86 (1.40-6.50) K/uL Lymph # (Auto) 1.07 L (1.20-3.40) K/uL Cuming # (Auto) 0.59 (0.11-0.59) K/uL Eos # (Auto) 0.16 (0.00-0.50) K/uL Baso # (Auto) 0.03 (0.00-0.20) K/uL Immature Gran # (Auto) 0.01 (0.01-0.20) K/uL Sodium 142 (136-145) mmol/L Potassium 3.5 (3.5-5.1) mmol/L Chloride 102 (98-107) mmol/L Carbon Dioxide 33 H (21-32) mmol/L Anion Gap 7 (3-11) BUN 8 (6-23) mg/dl Creatinine 0.73 (0.6-1.2) mg/dl Est Cr Clr Drug Dosing 103.6 ml/min eGFR 111.99 BUN/Creatinine Ratio 11.0 (10-20) Glucose 106 H (70-99(Fasting)) mg/dl POC Glucose 101 H (70-99) mg/dl Calcium 8.9 (8.6-10.3) mg/dl Magnesium 2.0 (1.7-2.4) mg/dl Total Bilirubin 0.3 (0.2-1.0) mg/dl AST 18 (13-39) U/L ALT 13 (7-52) U/L Alkaline Phosphatase 81 (34-104) U/L Total Protein 6.6 (6.0-8.3) gm/dl Albumin 4.1 (3.4-5.0) gm/dl Globulin 2.5 (2.5-4.0) gm/dl Albumin/Globulin Ratio 1.6 (0.9-2) Lipase 22 (11-82) U/L HCG, Qual Negative (Negative) Administered Medications Duloxetine HCl (Duloxetine Hcl 60 Mg Cap) 60 mg PO QAM EMERALD Stop: 11/12/24 08:59 Last Admin: 10/13/24 08:18 Dose: 60 mg Documented By: DLN Enoxaparin Sodium (Enoxaparin Inj 40 Mg/0.4 Ml Syr) 40 mg SQ Q24H EMERALD Stop: 11/11/24 18:14 Last Admin: 10/12/24 18:14 Dose: 40 mg Documented By: RLB Famotidine (Famotidine 20 Mg Tab) 20 mg PO BID EMERALD Stop: 11/11/24 20:59 Last Admin: 10/13/24 08:24 Dose: 20 mg Documented By: Admin: 10/12/24 21:28 Dose: 20 mg Documented By: FRAN Fentanyl (Fentanyl 50 Mcg/Hr Tdsy) 1 patch TD Q72H EMERALD Stop: 10/26/24 20:59 Last Admin: 10/12/24 21:15 Dose: 1 patch Documented By: FRAN Fexofenadine HCl (Fexofenadine Hcl 180 Mg Tab) 180 mg PO HS EMERALD Stop: 11/11/24 20:59 Last Admin: 10/12/24 21:19 Dose: 180 mg Documented By: FRAN Fludrocortisone Acetate (Fludrocortisone Acetate 0.1 Mg Tab) 0.1 mg PO BID EMERALD Stop: 11/11/24 20:59 Last Admin: 10/13/24 08:19 Dose: 0.1 mg Documented By: Admin: 10/12/24 21:17 Dose: 0.1 mg Documented By: FRAN Gabapentin (Gabapentin 250 Mg/5 Ml 470 Ml Btl) 900 mg PO TID EMERALD Stop: 11/11/24 20:59 Last Admin: 10/13/24 09:04 Dose: 900 mg Documented By: Admin: 10/12/24 21:28 Dose: 900 mg Documented By: FRAN Hydrocortisone (Hydrocortisone 10 Mg Tab) 15 mg PO DAILY EMERALD Stop: 11/12/24 08:59 Last Admin: 10/13/24 08:18 Dose: 15 mg Documented By: HANH Hydromorphone HCl (Hydromorphone Inj 1 Mg/Ml Syringe) 2 mg IV Q4H EMERALD Stop: 10/26/24 17:59 Last Admin: 10/13/24 10:06 Dose: 2 mg Documented By: Admin: 10/13/24 06:18 Dose: 2 mg Documented By: Admin: 10/13/24 02:20 Dose: 2 mg Documented By: Admin: 10/12/24 22:14 Dose: 2 mg Documented By: Admin: 10/12/24 18:17 Dose: 2 mg Documented By: YOU Hydromorphone HCl (Hydromorphone Inj 1 Mg/Ml Syringe) 1 mg IV Q2H PRN PRN Reason: Pain Stop: 10/26/24 17:50 Last Admin: 10/13/24 08:14 Dose: 1 mg Documented By: Admin: 10/13/24 04:20 Dose: 1 mg Documented By: Admin: 10/13/24 00:30 Dose: 1 mg Documented By: Admin: 10/12/24 20:24 Dose: 1 mg Documented By: FRAN Pantoprazole Sodium (Protonix) 40 mg in 10 mls @ 5 mls/min IV QPM EMERALD Stop: 11/11/24 20:59 Last Admin: 10/12/24 20:33 Dose: 5 mls/min Documented By: FRAN Acetaminophen (Ofirmev) 1,000 mg in 100 mls @ 400 mls/hr IV Q8H EMERALD Stop: 10/15/24 16:01 Last Infusion: 10/13/24 08:16 Dose: Infused Documented By: Admin: 10/13/24 07:53 Dose: 400 mls/hr Documented By: Infusion: 10/13/24 00:23 Dose: Infused Documented By: Admin: 10/13/24 00:08 Dose: 400 mls/hr Documented By: Infusion: 10/12/24 17:17 Dose: Infused Documented By: Admin: 10/12/24 16:27 Dose: 400 mls/hr Documented By: BRANDT Lactated Ringer's (Lr) 1,000 mls @ 100 mls/hr IV .Q10H [facility] Stop: 10/13/24 12:59 Last Admin: 10/13/24 03:45 Dose: 100 mls/hr Documented By: Infusion: 10/13/24 03:45 Dose: Infused Documented By: Admin: 10/12/24 18:12 Dose: 100 mls/hr Documented By: YOU Levothyroxine Sodium (Levothyroxine Sodium 50 Mcg Tablet) 50 mcg PO DAILYBB EMERALD Stop: 11/12/24 06:29 Last Admin: 10/13/24 06:19 Dose: 50 mcg Documented By: FRAN Lorazepam (Lorazepam 2 Mg/1 Ml Vial) 1 mg IV Q6H PRN PRN Reason: Anxiety/Agitation/nausea Stop: 11/11/24 21:02 Last Admin: 10/13/24 11:40 Dose: 1 mg Documented By: Admin: 10/13/24 04:20 Dose: 1 mg Documented By: Admin: 10/12/24 21:13 Dose: 1 mg Documented By: FRAN Melatonin (Melatonin 3 Mg Tab) 3 mg PO HS PRN PRN Reason: Sleep Stop: 11/11/24 16:01 Last Admin: 10/12/24 21:16 Dose: 3 mg Documented By: FRAN Methocarbamol (Methocarbamol 750 Mg Tablet) 750 mg PO TID EMERALD Stop: 11/11/24 20:59 Last Admin: 10/13/24 08:17 Dose: 750 mg Documented By: Admin: 10/12/24 21:16 Dose: 750 mg Documented By: FRAN Miscellaneous (Clindamycin Phosphate 1 % Gel--Order Awaiting Action) 1 each N/A QS [facility] Stop: 11/12/24 00:00 Last Admin: 10/13/24 08:16 Dose: Not Given Documented By: Admin: 10/12/24 23:18 Dose: Not Given Documented By: FRAN Mispeteraneous (Fentanyl Patch Remove & Waste) 1 each N/A Q3D [facility] Stop: 11/11/24 16:01 Last Admin: 10/12/24 21:28 Dose: 1 each Documented By: FRAN Co-signed By: UNIQUE Maldonado (Check Fentanyl Patch Placement) 1 each N/A QS [facility] Stop: 11/11/24 16:01 Last Admin: 10/13/24 08:16 Dose: 1 each Documented By: Admin: 10/13/24 00:08 Dose: 1 each Documented By: Admin: 10/12/24 16:31 Dose: 1 each Documented By: BRANDT Ondansetron HCl (Ondansetron Inj 2 Mg/Ml 2 Ml Vial) 4 mg IV Q6H PRN PRN Reason: Nausea Stop: 11/11/24 16:01 Last Admin: 10/13/24 10:06 Dose: 4 mg Documented By: Admin: 10/13/24 06:18 Dose: 4 mg Documented By: Admin: 10/13/24 00:08 Dose: 4 mg Documented By: FRAN Oxycodone HCl (Oxycodone Hcl Soln 5 Mg/5 Ml Udc) 5 mg PO Q4H PRN PRN Reason: Pain, Moderate Stop: 10/26/24 16:16 Last Admin: 10/12/24 16:31 Dose: 5 mg Documented By: BRANDT Vitamin D (Cholecalciferol 25 Mcg (1000 Units) Tab) 50 mcg PO QAM EMERALD Stop: 11/12/24 08:59 Last Admin: 10/13/24 08:17 Dose: 50 mcg Documented By: HANH Discontinued Medications Hydrocortisone Sodium Succinate (Hydrocortisone Sod Succinate 100 Mg/2 Ml Vial) 100 mg IV NOW STA Stop: 10/12/24 12:37 Last Admin: 10/12/24 12:58 Dose: 100 mg Documented By: BRANDT Hydromorphone HCl (Hydromorphone Inj 0.5 Mg/0.5 Ml Syr) 0.5 mg IV NOW STA Stop: 10/12/24 12:34 Last Admin: 10/12/24 12:53 Dose: 0.5 mg Documented By: BRANDT Hydromorphone HCl (Hydromorphone Inj 0.5 Mg/0.5 Ml Syr) 0.5 mg IV Q15M PRN PRN Reason: Pain Stop: 10/26/24 12:32 Last Admin: 10/12/24 15:43 Dose: 0.5 mg Documented By: Admin: 10/12/24 13:58 Dose: 0.5 mg Documented By: MAXX Sodium Chloride (Nss) 1,000 mls @ 999 mls/hr IV .Q1H1M STA Stop: 10/12/24 13:33 Last Infusion: 10/12/24 15:54 Dose: Infused Documented By: Admin: 10/12/24 13:05 Dose: 999 mls/hr Documented By: BRANDT Sodium Chloride (Nss) 1,000 mls @ 999 mls/hr IV .Q1H1M ONE Stop: 10/12/24 15:55 Last Infusion: 10/12/24 18:05 Dose: Infused Documented By: Admin: 10/12/24 15:54 Dose: 999 mls/hr Documented By: BRANDT Promethazine HCl (Phenergan) 6.25 mg in 50.25 mls @ 201 mls/hr IV NOW STA Stop: 10/12/24 17:21 Last Admin: 10/12/24 18:05 Dose: Not Given Documented By: YOU Ioversol (Optiray 320 100ml) 93 ml IV ONCE ONE Stop: 10/12/24 13:50 Last Admin: 10/12/24 13:49 Dose: 93 ml Documented By: JIMMIE Lorazepam (Lorazepam 2 Mg/1 Ml Vial) 1 mg IV NOW STA Stop: 10/12/24 12:34 Last Admin: 10/12/24 12:56 Dose: 1 mg Documented By: BRANDT Miscellaneous (Estradiol 0.025 Mg/24 Hr Patch Semiweekly--Order Awaiting Action) 1 each N/A QS EMERALD Stop: 11/12/24 00:00 Last Admin: 10/13/24 08:16 Dose: Not Given Documented By: Admin: 10/12/24 23:18 Dose: Not Given Documented By: FRAN Ondansetron HCl (Ondansetron Inj 2 Mg/Ml 2 Ml Vial) 4 mg IV NOW STA Stop: 10/12/24 12:34 Last Admin: 10/12/24 13:02 Dose: 4 mg Documented By: BRANDT Ondansetron HCl (Ondansetron Inj 2 Mg/Ml 2 Ml Vial) 4 mg IV NOW STA Stop: 10/12/24 17:16 Last Admin: 10/12/24 18:13 Dose: 4 mg Documented By: YOU Discharge Plan Visit Data Chief Complaint: Seizure Stated Complaint: SEIZURE ED Provider: Kirk Caldera Discharge Problem: RUQ abdominal pain, Acute dehydration, Seizure-like activity, Vomiting, SMAS (superior mesenteric artery syndrome) Patient Disposition: Admitted As Inpatient Condition: Fair Discharge Instructions Interventions: ED Discharge Assessment Last Done: 10/12/24 16:02 Discharge Problem: Vomiting Qualifiers: Vomiting type: unspecified Nausea presence: with nausea Qualified Code(s): R 11.2 - Nausea with vomiting, unspecified
[2024-10-12 12:51] LABS: Hematocrit (blood only) 38.1 % (37.0-47.0); Hemoglobin 12.6 g/dl (12.0-16.0); Immature Granulocytes # (auto) 0.01 K/uL (0.01-0.20); Immature Granulocytes % (auto) 0.2 %; Mean Corpuscular Hemoglobin 29.9 pg (25.0-34.0); Mean Corpuscular Volume 90.5 fL (80.0-100.0); Platelet Count 277 K/uL (130-400); RDW Standard Deviation 51.1 fL (36.4-46.3); Red Blood Count 4.21 M/uL (4.20-5.40); White Blood Count 5.72 K/ul (4.8-10.8)
[2024-10-12] MEDS: HYDROmorphone INJ 0.5 MG/0.5 ML SYR IV STA (12:53)
[2024-10-12] MEDS: HYDROCORTISONE SOD SUCCINATE 100 MG/2 ML VIAL IV STA (12:58)
[2024-10-12] MEDS: ONDANSETRON INJ 2 MG/ML 2 ML VIAL IV STA ×2 (13:02→18:13)
[2024-10-12] MEDS: SODIUM CHLORIDE 0.9% 1,000 ML IV STA (13:05)
[2024-10-12 13:06] LABS: Pregnancy Test, Serum Negative (Negative)
[2024-10-12 13:08] LABS: Alanine Aminotransferase 13.0 U/L (7-52); Albumin Globulin Ratio 1.6 (0.9-2); Alkaline Phosphatase 81.0 U/L (34-104); Anion Gap 7.0 (3-11); Bilirubin,Total 0.3 mg/dl (0.2-1.0); Blood Urea Nitrogen 8.0 mg/dl (6-23); Calcium 8.9 mg/dl (8.6-10.3); Carbon Dioxide 33.0 mmol/L (21-32); Chloride 102.0 mmol/L (98-107); Creatinine Clr Calc Pharmacy 103.6 ml/min; Globulin 2.5 gm/dl (2.5-4.0); Glucose 106.0 mg/dl (70-99(Fasting)); Lipase 22.0 U/L (11-82); Magnesium 2.0 mg/dl (1.7-2.4); Potassium 3.5 mmol/L (3.5-5.1); Sodium 142.0 mmol/L (136-145); Total Protein 6.6 gm/dl (6.0-8.3)
[2024-10-12] MEDS: OPTIRAY 320 100ml IV ONE (13:49)
[2024-10-12] MEDS: HYDROmorphone INJ 0.5 MG/0.5 ML SYR IV PRN (13:58)
--- NOTE | 2024-10-12 14:18 | CT Scan Report ---
CT SCAN OF THE ABDOMEN AND PELVIS WITH IV CONTRAST CLINICAL HISTORY: Vomiting. Possible obstruction COMPARISON STUDY: CT of the abdomen and pelvis September 12, 2024. TECHNIQUE: Following the IV administration of 93 cc of Optiray 320, CT scan of the abdomen and pelvi s is performed from the lung bases to the proximal femora. Images are reviewed in the axial, sagittal , and coronal planes. IV contrast was administered without complication. A dose lowering technique wa s utilized adhering to the principles of ALARA. CT DOSE: 975.35 mGy.cm FINDINGS: Visualized lung bases are unremarkable. No pneumatosis, free air or portal venous gas is pr esent. There is no biliary ductal dilatation status post cholecystectomy. Spleen, adrenal glands, kid neys and pancreas are unremarkable. Is no hydronephrosis. There are postoperative findings consistent with subtotal colectomy with right lower quadrant ileostomy. Caliber and wall thickness of small and large bowel are normal. Postoperative findings within the anterior abdominal wall are noted. There a re no fluid collections. No hydronephrosis. Major vasculature is patent. Gastrostomy tube is in place . IMPRESSION: 1. No acute process within the abdomen or pelvis. 2. Status post subtotal colectomy with right lower quadrant ileostomy. No evidence for a bowel obstru ction. No bowel wall thickening. ACT 112: Negative or not required by law. Electronically signed by: Ruperto Lopez M.D. 10/12/2024 2:17 PM
[2024-10-12] MEDS: SODIUM CHLORIDE 0.9% 1,000 ML IV ONE (15:54)
[2024-10-12] MEDS ORDERED: HYDROmorphone INJ 0.5 MG/0.5 ML SYR IV PRN (16:02)
[2024-10-12] MEDS ORDERED: NALOXONE HCL 0.4 MG/1 ML VIAL/CARP IV PRN (16:02)
[2024-10-12] MEDS ORDERED: ALUMINUM/MAGNESIUM SUSP 30 ML UDC PO PRN (16:02)
[2024-10-12] MEDS ORDERED: HYDROmorphone INJ 1 MG/ML SYRINGE IV PRN (16:02)
--- NOTE | 2024-10-12 16:17 | History & Physical Report ---
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 Last surgery performed on Jun 28. As per patient there is a scheduling in process for another type of abdominal by Dr. Sarmiento and Dr. Verma. Will reach out to [facility] to get more information and further recommendation -- nothing appearing consisting with surgical emergency - will admit for supportive care and pain management/ hydration/ nausea management Abdomen CT: No acute process. Status post subtotal colectomy with right lower quadrant ileostomy. No obstruction. No bowel wall thickening - No leukocytosis, no transaminitis, normal lipase. Hemodynamically stable, no fever. - Pain management: - Dilaudid 2mg anthony 4 hrs, Dilaudid 1 mg q2 hrs prn. (She takes Oxycodone 15 mg q4hrs, this was recently increased by surgery - Schedule Tylenol - Continue home ativan - Continue fentanyl patch 50 mcg -Continue Zofran q 6hr prn Continue hydration PNES - Suspect increased in frequency due to uncontrolled pain. Seem to had been different this episode, with longer duration and bradycardia. - No neuro deficit on exam - Continue current pain management - PCU for continues monitoring - Continue home ativan Severe protein-calorie malnutrition TPN once she's doing better. NPO for now Lactate ringer 100 ml/hr BMP AM Visceral hyperalgesia chronic pain management, supportive care, outpt surgery and pain management follow up POTS (postural orthostatic tachycardia syndrome) \\ Adrenal insufficiency IV fluids, steroids (for adrenal insufficiency as well) - Continue home steroids, vital signs stable no need for stress dose at this time. 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 Patient know to have pseudoseizures. This episodes seem to have a longer duration with bradycardia and hypoxia. She returned to her self after Oxygen was apply. Pain had been worsening in the last 2 weeks. Patient is being follow by [facility] transplant Surgery Dr. Sarmiento and Dr. Verma. Had another abdominal surgery on June 28 where they remove her ovaries? . It seem that they plan to do another type of abdominal surgery soon, this is under scheduling at the moment. There is concern of MALS, which she recently got a vascular study, no results had been reported yet She denied any fever, chills, abdominal pain, runny nose, cough, sore throat. No sick contacts Allergies Allergy/AdvReac Type Severity Reaction Status Date / Time diphenhydramine Allergy Severe Anaphylaxis Verified 10/12/24 15:33 promethazine Allergy Severe hives, Verified 10/12/24 15:33 throat swelling adhesive Allergy Intermediate Redness of Verified 10/12/24 15:33 Skin amoxicillin Allergy Intermediate RASH Verified 10/12/24 15:33 azithromycin [From Zithromax] Allergy Intermediate RASH/VOMITI Verified 10/12/24 15:33 NG calcium Allergy Intermediate SEE COMMENT Verified 10/12/24 15:33 [From VIACTIV Multi-Vitamin] clavulanic acid Allergy Intermediate HIVES Verified 10/12/24 15:33 ferric carboxymaltose Allergy Intermediate Rash Verified 10/12/24 15:33 [From Injectafer] folic acid Allergy Intermediate SEE COMMENT Verified 10/12/24 15:33 [From VIACTIV Multi-Vitamin] iron [From Venofer] Allergy Intermediate Muscle Pain Verified 10/12/24 15:33 multivitamin with minerals Allergy Intermediate SEE COMMENT Verified 10/12/24 15:33 [From VIACTIV Multi-Vitamin] Penicillins Allergy Intermediate HIVES Verified 10/12/24 15:33 prochlorperazine Allergy Intermediate HIVES Verified 10/12/24 15:33 sulfamethoxazole Allergy Intermediate RASH Verified 10/12/24 15:33 sumatriptan Allergy Intermediate RASH Verified 10/12/24 15:33 trimethoprim Allergy Intermediate RASH Verified 10/12/24 15:33 metoclopramide AdvReac Severe anxiety/ Verified 10/12/24 15:33 jittery morphine AdvReac Severe Severe Verified 10/12/24 15:33 abdominal Pain, sphincter of oddi spasms erythromycin base AdvReac Intermediate GI SYMPTOMS Verified 10/12/24 15:33 citalopram [From Celexa] AdvReac Unknown CAN'T Verified 10/12/24 15:33 REMEMBER Home Medications Medication Instructions Recorded Confirmed Type dicyclomine 10 mg capsule 20 mg PO Q6H PRN Abdominal Pain 03/07/18 10/12/24 History pantoprazole 40 mg tablet,delayed 40 mg PO QAM 09/08/19 10/12/24 History release (Protonix) famotidine 40 mg tablet 20 mg PO BID 11/28/19 10/12/24 History hydrocortisone 10 mg tablet See Rx Instructions .Route .COMPLEX 02/07/20 10/12/24 History fexofenadine 180 mg tablet 180 mg PO HS 10/09/20 10/12/24 History fludrocortisone 0.1 mg tablet 0.1 mg PO BID 12/12/20 10/12/24 History acetaminophen 500 mg tablet 1,000 mg PO Q6H PRN Pain 06/13/21 10/12/24 History (Tylenol Extra Strength) multivitamin with minerals-folic 2 tab PO HS 06/13/21 10/12/24 History acid 200 mcg chewable tablet (Multivitamin Gummies) turmeric 400 mg capsule 400 mg PO HS 06/13/21 10/12/24 History cholecalciferol (vitamin D3) 25 50 mcg PO QAM 04/07/22 10/12/24 History mcg (1,000 unit) capsule (Vitamin D3) duloxetine 60 mg capsule,delayed 60 mg PO QAM 04/07/22 10/12/24 History release methocarbamol 750 mg tablet 750 mg PO TID 04/07/22 10/12/24 History coenzyme Q10 100 mg capsule 100 mg PO QPM 07/22/22 10/12/24 History (CoQ-10) pyridoxine (vitamin B6) 50 mg 50 mg PO QAM 07/22/22 10/12/24 History tablet ondansetron 8 mg disintegrating 8 mg PO TID PRN Nausea 10/06/22 10/12/24 History tablet levothyroxine 50 mcg tablet 50 mcg PO QAM 03/04/23 10/12/24 History (Synthroid) gabapentin 250 mg/5 mL oral 900 mg (18 mL) PO TID 30 days 12/15/23 10/12/24 Rx solution #1,620 mL oxycodone 20 mg/mL oral concentrate 5 mg PO Q4H PRN Pain, Moderate 07/25/24 10/12/24 History clindamycin phosphate 1 % topical 1 applic topical DIRECTED 09/07/24 10/12/24 History gel estradiol 0.025 mg/24 hr 0.025 mg transdermal 2XWK 09/07/24 10/12/24 History semiweekly transdermal patch fentanyl 50 mcg/hr transdermal 50 mcg transdermal Q72H 09/07/24 10/12/24 History patch lorazepam 2 mg/mL oral concentrate 1 mg PO DIRECTED PRN 09/07/24 10/12/24 History ANXIETY/SLEEP Past Med/Surg History Problem List Septic pulmonary embolism MSSA bacteremia Port-A-Cath in place Discharge planning issues DVT prophylaxis Methicillin susceptible Staphylococcus aureus infection Central line infection Pseudomonas aeruginosa infection Visceral hyperalgesia Palliative care encounter Right ankle sprain (Acute) Encounter for care related to vascular access port Iron deficiency anemia Syncope Seizure-like activity Witnessed seizure-like activity (Acute) Hypokalemia Malnutrition Transaminitis B12 deficiency Folate deficiency Diversion colitis Intestinal motility disorder (Chronic) Candidiasis of mouth and esophagus Severe protein-calorie malnutrition Abdominal pain, chronic, generalized (Chronic) Adrenal insufficiency On total parenteral nutrition (TPN) (Chronic) Acute kidney insufficiency Tachycardia (Acute) Acute dehydration (Acute) Epigastric abdominal pain (Acute) Chronic migraine without aura Hypokalemia Hypomagnesemia Hypokalemia Enteritis (Acute) Hypophosphatemia (Acute) Endometriosis has had 3 surgeries for this. Last surgery 2018 Jejunal intussusception Sinus tachycardia Hypotension Secondary hyperparathyroidism Hypocalcemia Diarrhea (Acute) Hypophosphatemia (Acute) Chronic migraine (Chronic) Anemia Gastroparesis Sphincter of Oddi spasm Fever Hypokalemia Vomiting (Acute) Urinary retention (Acute) UTI (urinary tract infection) (Acute) resolved S/P cholecystectomy 2014 Post-op pain (Acute) Hypotension Hemorrhagic cystitis (Acute) hx Head injury (Acute) Concussion (Acute) Bilious vomiting (Acute) Allergic reaction caused by a drug Allergic reaction Asthma (Chronic) Abnormal MRI, kidney (Acute) Acute right flank pain (Acute) Right flank pain (Acute) Bilateral flank pain (Acute) Appendicitis, acute (Acute 11/07/13) Medical History Endometrioma of ovary Urinary dysfunction Abdominal pain Pain disorder Generalized abdominal pain Hx of Clostridium difficile infection 5 years ago, tx. 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 carroll, [facility] Spinal cord stimulator status trial implanted 03/02/23, in dr. ramírez's office>advised to bring remote Chronic, continuous use of opioids Difficult intravenous access Intractable pain Abdominal pain Elevated lipase Transaminitis Colitis Chronic malnutrition Gastrostomy tube in place Intussusception hx PICC (peripherally inserted central catheter) in place TPN Pancreatitis hx Sphincter of Oddi dysfunction DECREASED GI MOTILITY Uses feeding tube gastroparesis and decreased GI motility can not tolerate feeding and uses TPN Epigastric abdominal pain Nausea Surgical History H/O bilateral oophorectomy History of removal of Port-a-Cath (12/03/23) Port Removal(Right) - Jr Collins, DO, FACS History of lysis of adhesions History of liver biopsy 2023 Hx of exploratory laparotomy History of esophagogastroduodenoscopy (EGD) Ileostomy status Hx of ileostomy Hx of colonoscopy during procedure perforated small bowel 10/27/2019 at [facility], subsequent repair of duodenal area. History of bowel resection Part of duodenum removed due to necrosis; done at [facility] 2019 History of removal of Port-a-Cath 10/13/[address] Geiger, [facility], due to bacteremia/sepsis.; "inserted and removed multiple times" History of hysterectomy 09/27/19 History of appendectomy History of vascular access device 2018; implanted and removed "several" times Family History Father Hyperlipidemia Other No significant family history Social History Smoking Status: Never smoker Second Hand Exposure: No; Do You Dip or Chew Tobacco: No; Tobacco Cessation Education Requested by Patient: No Hx Alcohol Use: No Hx Substance Use: No Preferred Language: Kiswahili Communication Ability: Effective Visual Impairment: No Limitations Hearing Ability: Normal Drywall Applicator Required: No Beliefs That Will Affect Care: None marital status: Single Current Living Situation: Parent Current Living Situation Comment: Patient lives at home with both parents current occupational status: unemployed current occupation: completed 4-year degree at [employer] How many Children do You have: 0 Other Information That Helps Us Care for You: No Feels Safe at Home: Yes Safety Concerns: Feels Safe At This Time Diet: regular Sexual Activity Comment: not sexually active Assistive Devices: Contacts and Glasses Review of Systems Review of Systems: as per hpi Physical Exam Constitutional: WD/WN, vitals as above ENMT: external ear and nose normal, oropharynx normal Respiratory: normal respiratory effort, lungs clear to auscultation Cardiovascular: RRR, no murmur, no edema Gastrointestinal (Abdomen): Inspection/Auscultation: abdomen normal to inspection and normal bowel sounds; abdomen not distended Percussion/Palpation: + abdomen tender (Right upper quadrant) and abdomen soft; no guarding, abdomen not rigid and no abdominal mass G tube in place, no purulent discharge no erythema. Drainage intact Results & Data Results & Data Vital Signs (Past 12 Hours) Vital Signs Temp Pulse Pulse Resp BP BP Pulse Ox 10/12/24 15:00 90 20 118/92 95 10/12/24 13:08 81 11 L 112/88 97 10/12/24 12:47 87 19 97 10/12/24 12:44 111 H 10/12/24 12:18 10/12/24 12:18 36.6 C 109 H 18 119/81 96 O2 Del Method 10/12/24 15:00 Room Air 10/12/24 13:08 Room Air 10/12/24 12:47 Room Air 10/12/24 12:44 10/12/24 12:18 Room Air 10/12/24 12:18 Room Air Code Status & VTE Plan VTE Prophylaxis Plan VTE Prophylaxis will be ordered: Yes Supervising Physician Co-Signing Physician Notes ATTESTATION I also saw the patient and confirmed solorzano portions of the history and exam. I agree with the impression and plan in the resident documentation, and as summarized below. Patient seen in one of our outpatient's office earlier today where she had a period of unresponsiveness. This was similar, in some aspects, to her well documented episodes - but according to patient's mother, today's episode was of greater intensity and duration than usual. Also, she had a greater number of her usual episodes over the last two days, associated with increased abdominal pain. Upon exam in the ED, she is hemodynamically stable with greater than baseline abdominal pain. EXAM 115/80, 97, 20, 36.7, SPO2 98 % Alert and oriented. Skin pale, warm, dry. CV regular without ectopy. Lungs CTA with non labored respirations. ABD soft and tender J-tube draining yellow material Ext without edema. DATA Labs CBC and CMP unremarkable Imaging CT abdomen and pelvis without acute changes, noted surgical changes IMPRESSION & PLAN Acute on chronic abdominal pain Suspect vasovagal episode secondary to pain PNES History of POTS Pain management Will reach out to her surgery team in [place] to decide on best plan moving forward Additional per resident documentation (1) Abdominal pain Abdominal location: lower abdomen, unspecified Qualified Code(s): R10.30 - Lower abdominal pain, unspecified
[2024-10-12] MEDS: ACETAMINOPHEN 1,000 MG/100 ML VIAL IV SCH (16:27)
[2024-10-12 16:32] LABS: Appearance Urine Clear (Clear); Glucose Urine UA Negative (Negative)
[2024-10-12] MEDS ORDERED: LORazepam 1 MG TAB PO PRN ×2 (17:03→20:24)
[2024-10-12] MEDS: PROMETHAZINE 6.25 MG/50.25 ML BAG IV STA (18:05)
[2024-10-12] MEDS: LACTATED RINGER'S 1,000 ML IV SCH (18:12)
[2024-10-12] MEDS: ENOXAPARIN INJ 40 MG/0.4 ML SYR SQ SCH (18:14)
[2024-10-12] MEDS: HYDROmorphone INJ 1 MG/ML SYRINGE IV SCH (18:17)
[2024-10-12] MEDS: HYDROmorphone INJ 1 MG/ML SYRINGE IV PRN (20:24)
[2024-10-12] MEDS: PANTOprazole 40 MG/10 ML SYR IV SCH (20:33)
[2024-10-12] MEDS: MELATONIN 3 MG TAB PO PRN (21:16)
[2024-10-12] MEDS: METHOCARBAMOL 750 MG TABLET PO SCH (21:16)
[2024-10-12] MEDS: FLUDROCORTISONE ACETATE 0.1 MG TAB PO SCH (21:17)
[2024-10-12] MEDS: FEXOFENADINE HCL 180 MG TAB PO SCH (21:19)
[2024-10-12] MEDS: GABAPENTIN 250 MG/5 ML 470 ML BTL PO SCH (21:28)
[2024-10-12] MEDS: FAMOTIDINE 20 MG TAB PO SCH (21:28)
[2024-10-13] MEDS: ONDANSETRON INJ 2 MG/ML 2 ML VIAL IV PRN (00:08)
[2024-10-13] MEDS: LEVOTHYROXINE SODIUM 50 MCG TABLET PO SCH (06:19)
[2024-10-13] MEDS: CHOLECALCIFEROL 25 MCG (1000 UNITS) TAB PO SCH (08:17)
[2024-10-13] MEDS: HYDROCORTISONE 10 MG TAB PO SCH ×2 (08:18→13:50)
[2024-10-13] MEDS ORDERED: ESTRADIOL 0.025 MG/24 HR TD SCH (09:30)
[2024-10-13 10:21] LABS: Hematocrit (blood only) 32.5 % (37.0-47.0); Hemoglobin 10.6 g/dl (12.0-16.0); Immature Granulocytes # (auto) 0.01 K/uL (0.01-0.20); Immature Granulocytes % (auto) 0.2 %; Mean Corpuscular Hemoglobin 29.4 pg (25.0-34.0); Mean Corpuscular Volume 90.0 fL (80.0-100.0); Platelet Count 223 K/uL (130-400); RDW Standard Deviation 50.6 fL (36.4-46.3); Red Blood Count 3.61 M/uL (4.20-5.40); White Blood Count 4.67 K/ul (4.8-10.8)
--- NOTE | 2024-10-13 10:25 | Hospitalist Progress Note ---
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 Last surgery performed on Jun [address] Green (transplant surgery). Next surgery schedule for December 15. - Discussed with Dr. Green today (10/13) care management. No need for transfer at this time as the patient is hemodynamically stable, no signs of obstructions or infection at this time. No leukocytosis, no transaminitis, normal lipase. Hemodynamically stable, no fever. ([facility] Medical line - [phone]. Tasia -transfer coordinator ([phone]) - nothing appearing consisting with surgical emergency - Continue supportive care and pain management/ hydration/ nausea management - Pain management: - Dilaudid 2mg change from q 4hr to q3 hrs schedule. Dilaudid 1 mg q2 hrs prn. (She takes Oxycodone 15 mg q4hrs, this was recently increased by surgery - Schedule Tylenol - Continue home ativan - Continue fentanyl patch 50 mcg -Continue Zofran q 6hr prn Continue hydration PNES - Suspect increased in frequency due to uncontrolled pain. Seem to had been different this episode, with longer duration and bradycardia. Suspect this was an vasovagal event - No neuro deficit on exam - Continue current pain management - PCU for continues monitoring - Continue home ativan Severe protein-calorie malnutrition TPN once she's doing better. NPO for now Lactate ringer 100 ml/hr BMP AM Visceral hyperalgesia chronic pain management, supportive care, outpt surgery and pain management follow up POTS (postural orthostatic tachycardia syndrome) \ Adrenal insufficiency IV fluids, steroids (for adrenal insufficiency as well) - Continue home steroids, vital signs stable no need for stress dose at this time. Seizure-like activity PNES from pain endometriosis norethindrone, 0.35 mg, PO, qAM (patient's own oral contraceptive) during hospital stay DVT prophylaxis - lovenox sq24 Dispo- Admit to PCU Admission and Anticipated Discharge Date Admission Date: October 12, 2024 Supervising Physician Co-Signing Physician Notes ATTESTATION I also saw the patient and confirmed solorzano portions of the history and exam. I agree with the impression and plan in the resident documentation, and as summarized below. Regimen provided adequate pain relief until about 11 AM this morning at which time she had two pseudoseizures due to pain. EXAM 132/91, 86, 18, 36.7 Alert and oriented. Skin pale, warm, dry. Appears in mild to moderate pain at time of our exam. CV regular without ectopy. Lungs CTA with non labored respirations. IMPRESSION & PLAN Acute on chronic abdominal pain Suspect vasovagal episode secondary to pain PNES History of POTS Pain management; change hydromorphone to 2mg q 3 hours and 1mg q 2 hours PRN We have reached out to her surgery team in [place] to decide on best plan moving forward, awaiting call back TPN on hold; continue IVF Once pain controlled, will need to re-introduce TPN and monitor symptoms Additional per resident documentation Subjective Seen this am. Had a pseudoseizure early this morning before rounding. Pain management was ok over night but had a flare up this am. Denied any fever, chills, chest pain, palpitations Review of Systems Review of Systems: as per hpi Physical Exam Constitutional: WD/WN, vitals as above ENMT: external ear and nose normal, oropharynx normal Respiratory: normal respiratory effort, lungs clear to auscultation Cardiovascular: RRR, no murmur, no edema Gastrointestinal (Abdomen): Inspection/Auscultation: abdomen normal to inspection and normal bowel sounds; abdomen not distended Percussion/Palpation: + abdomen tender (Right upper quadrant) and abdomen soft; no guarding, abdomen not rigid and no abdominal mass Results & Data Results & Data Vital Signs (Past 12 Hours) Vital Signs Temp Pulse Pulse Resp BP Pulse Ox O2 Del Method 10/13/24 08:05 36.5 C 91 H 16 123/86 95 Room Air 10/13/24 08:00 64 10/13/24 08:00 Room Air 10/13/24 02:58 36.5 C 85 18 125/86 95 Room Air 10/12/24 22:31 36.5 C 83 18 110/72 96 Room Air
[2024-10-13] MEDS ORDERED: Nursing to Pharmacy Communication SCH ×2 (10:30→12:15)
[2024-10-13 10:37] LABS: Alanine Aminotransferase 10.0 U/L (7-52); Albumin Globulin Ratio 1.7 (0.9-2); Alkaline Phosphatase 66.0 U/L (34-104); Anion Gap 4.0 (3-11); Bilirubin,Total 0.2 mg/dl (0.2-1.0); Blood Urea Nitrogen 4.0 mg/dl (6-23); Calcium 8.3 mg/dl (8.6-10.3); Carbon Dioxide 33.0 mmol/L (21-32); Chloride 106.0 mmol/L (98-107); Creatinine Clr Calc Pharmacy 118.1 ml/min; Globulin 2.0 gm/dl (2.5-4.0); Glucose 103.0 mg/dl (70-99(Fasting)); Potassium 3.5 mmol/L (3.5-5.1); Sodium 143.0 mmol/L (136-145); Total Protein 5.4 gm/dl (6.0-8.3)
[2024-10-13 10:50] LABS: INR 1.0 (0.9-1.1); Partial Thromboplastin Time 28 Seconds (21-31); Prothrombin Time 11.1 Seconds (9.0-12.0)
[2024-10-13] MEDS: HYDROmorphone INJ 1 MG/ML SYRINGE IV STA (12:21)
[2024-10-13] MEDS: HYDROmorphone INJ 1 MG/ML SYRINGE IV SCH ×2 (13:14→13:28)
[2024-10-13] MEDS: ESTRADIOL TD SCH (20:23)
[2024-10-13] MEDS: DICYCLOMINE HCL 10 MG CAP PO PRN (22:15)
[2024-10-14 06:57] LABS: Hematocrit (blood only) 34.4 % (37.0-47.0); Hemoglobin 11.2 g/dl (12.0-16.0); Mean Corpuscular Hemoglobin 29.6 pg (25.0-34.0); Mean Corpuscular Volume 91.0 fL (80.0-100.0); Platelet Count 242 K/uL (130-400); RDW Standard Deviation 50.7 fL (36.4-46.3); Red Blood Count 3.78 M/uL (4.20-5.40); White Blood Count 4.73 K/ul (4.8-10.8)
[2024-10-14 07:24] LABS: Anion Gap 8.0 (3-11); Blood Urea Nitrogen 5.0 mg/dl (6-23); Calcium 8.4 mg/dl (8.6-10.3); Carbon Dioxide 33.0 mmol/L (21-32); Chloride 103.0 mmol/L (98-107); Creatinine Clr Calc Pharmacy 130.4 ml/min; Glucose 78.0 mg/dl (70-99(Fasting)); Potassium 3.0 mmol/L (3.5-5.1); Sodium 144.0 mmol/L (136-145)
[2024-10-14 09:44] LABS: Magnesium 2.0 mg/dl (1.7-2.4)
[2024-10-14] MEDS: POTASSIUM CHLORIDE / WTR 10 MEQ/100 ML PLCT IV SCH (10:25)
[2024-10-14] MEDS ORDERED: DEXTROSE 10% 1,000 ML IV PRN (11:26)
--- NOTE | 2024-10-14 12:23 | Hospitalist Progress Note ---
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 Last surgery performed on Jun [address] Green (transplant surgery). -Etiology of this abdominal pains could be due to adhesions or could be mostly somatic - her Next surgery schedule for December 15. - Discussed with Dr. Green , No need for transfer at this time as the patient is hemodynamically stable, no signs of obstructions or infection at this time. - Continue supportive care and pain management/ hydration/ nausea management - Pain management: - Dilaudid 2mg change from q 4hr to q3 hrs schedule. Dilaudid 1 mg q2 hrs prn. (She takes Oxycodone 15 mg q4hrs, this was recently increased by surgery - Schedule Tylenol - Continue home ativan - Continue fentanyl patch 50 mcg -Continue Zofran q 6hr prn Continue hydration PNES - Suspect increased in frequency due to uncontrolled pain. - No neuro deficit on exam - Continue current pain management - Continue home ativan Severe protein-calorie malnutrition Resume TPN Visceral hyperalgesia chronic pain management, supportive care, outpt surgery and pain management follow up POTS (postural orthostatic tachycardia syndrome) \ Adrenal insufficiency IV fluids, steroids (for adrenal insufficiency as well) - Continue home steroids, vital signs stable no need for stress dose at this time. Seizure-like activity PNES from pain endometriosis norethindrone, 0.35 mg, PO, qAM (patient's own oral contraceptive) during hospital stay DVT prophylaxis - lovenox sq24 Dispo- continue to monitor ([facility] Medical line - [phone]. Tasia -inside sales coordinator ([phone]) Admission and Anticipated Discharge Date Admission Date: October 12, 2024 Subjective Patient seen and examined today, mother by the bedside, patient denies shortness of breath, states abdominal pain is under fair control. Review of Systems Review of Systems: All systems reviewed are negative, apart from the ones contained in the history. Physical Exam Physical Exam: The patient is awake, alert and oriented 3, well developed and well nourished, normocephalic and atraumatic, lying in bed and in no acute distress. HEENT--PERRL, EOMI, mucous membranes and oropharynx mildly dry Neck--supple. No JVD. No bruits. Thyroid normal, trachea midline, no adenopathy. Heart--normal S1 and S2. No murmurs, rubs or gallops. Lungs--clear bilaterally, no respiratory distress, no accessory muscle use. Abdomen--normal bowel sounds and soft. Extremities--no cyanosis or clubbing. No edema. Dermatologic--normal skin turgor, normal color, no abnormal lymph nodes, no rash. Neurologic--cranial nerves II through XII grossly intact. Rheumatologic--normal range of motion. Psychiatric--normal affect. Results & Data Results & Data Vital Signs (Past 12 Hours) Vital Signs Temp Pulse Pulse Resp BP Pulse Ox O2 Del Method 10/14/24 11:36 98.2 F 81 18 102/70 94 Room Air 10/14/24 09:22 100 H 10/14/24 08:05 98.2 F 89 17 125/81 93 Room Air 10/14/24 02:58 98.2 F 87 18 123/82 94 Room Air 10/14/24 00:38 82 PG Care Time/CCT Total # of Minutes Spent Total Time Spent with Patient: Total time spent is greater than 50% in coordination of care (as documented) at patient's floor/unit and/or counseling patient: Coding Level of Care Code 21468 SUB INP/OBS CARE 2/35MIN Diagnoses Abdominal pain, chronic, generalized R10.84; G89.29 Pain disorder R52 History of seizures Z87.898
--- NOTE | 2024-10-14 14:22 | Pharmacy Report ---
Pharmacy Initial PN Consult Nt - Date of Service October 14, 2024 - Scope Pharmacy has been consulted on this date to manage parenteral nutrition orders and order appropriate labs. As part of the Nutrition Support Team Guidelines, pharmacy will work in conjunction with dietary when determining the patients ca loric needs. - Subjective * The patient is a 34 year old Female admitted on 10/12/24 for UNCONTROLLED ABDOMINAL PAIN. * Patient is to receive parenteral nutrition for continuation of chronic TPN * Pertinent PMHx: complicated GI history including SMA syndrome w/ gastroparesis and chronic abdominal pain, severe protein-calorie malnutrition. POTS, adrenal insufficiency, and PNES. * Pertinent surgical history: s/p PEG/ostomy placement, multiple abdominal surgies including a transplant surgery most recently in June 2024 - Objective Vascular Access: * Patient currently has a central line. Height & Weight (Last Documented) Height 5 ft 6 in Weight 65.1 kg Diet Order(s) 10/12/24 12:33 NPO Intake & Ouput (24hrs) 10/13/24 10/14/24 10/15/24 06:59 06:59 06:59 Intake Total 3215 / 3215 1500 / 1500 300 / 300 Output Total 1005 / 1005 3025 / 3025 Balance 2210 / 2210 -1525 / -1525 300 / 300 Selected Laboratory Results 10/14/24 06:04 Sodium 144 Potassium 3.0 L Chloride 103 Carbon Dioxide 33 H Anion Gap 8 BUN 5 L Creatinine 0.58 L BUN/Creatinine Ratio 8.6 L Glucose 78 Calcium 8.4 L Phosphorus 4.[address] - Follow Up Nutrition Assessment Start: 10/13/24 11:47 Freq: Status: Active Protocol: Document 10/14/24 10:09 WN (Rec: 10/14/24 10:19 WN [id number]) RD - Initial Nutrition Assessment Start: 10/13/24 11:39 Freq: Status: Active Protocol: Document 10/13/24 11:39 WN (Rec: 10/13/24 11:47 WN [id number]) - Assessment & Plan Assessment: * DF is a 34 year old female well known to pharmacy parenteral nutrition consult service (see medical/surgical history above). Consulted to initiate TPN today. * [facility] and will base initial inpatient formulation on most recent outpatient one. * Will continue cyclic administration to correlate with outpatient administration as well. * Potassium low this morning - repleted with 40 mEq KCl IV + potassium in TPN. * Serum CO2 elevated so will favor chloride today (patient receives 20 mEq potassium acetate three times weekly as an outpatient, so may need to incorporate acetate into PN at some point). * Patient reports allergy to multivitamin so this will be held from TPN. * Appreciate dietitians recommendations for macronutrients. Plan: * For Day #1 of TPN administration, the following will be ordered: * Macronutrients: * Amino Acids: 96 grams/day * Dextrose: 168 grams/day * Lipids: 50 grams MWF * Micronutrients: * Sodium chloride: 50 mEq/day * Potassium chloride: 90 mEq/day * Magnesium sulfate: 8.12 mEq/day * Calcium gluconate: 18.6 mEq/day * Trace elements: 1 mL/day * Thiamine: 100 mg/day * Total volume of 1309 mL will be infused over 18 hours and will provide 1455 kcal/day * Labs will be ordered per PN protocol. * Pharmacy will follow and adjust PN orders on a daily basis. Thank you!
[2024-10-14] MEDS: SODIUM CHLORIDE 0.9% 1,000 ML IV SCH (16:16)
[2024-10-14] MEDS: [UNRECOGNIZED DRUG - OTHER] IV SCH (23:00)
[2024-10-14] MEDS: CENTRAL TPN IV SCH (23:00)
[2024-10-14] MEDS: CLINOLIPID 20% IV FAT EMULSION 250 ML IV SCH (23:03)
[2024-10-15] MEDS ORDERED: STOP CLINOLIPID SCH (04:59)
[2024-10-15 07:18] LABS: Anion Gap 3.0 (3-11); Blood Urea Nitrogen 13.0 mg/dl (6-23); Calcium 8.3 mg/dl (8.6-10.3); Carbon Dioxide 34.0 mmol/L (21-32); Chloride 104.0 mmol/L (98-107); Creatinine Clr Calc Pharmacy 145.4 ml/min; Glucose 119.0 mg/dl (70-99(Fasting)); Magnesium 2.0 mg/dl (1.7-2.4); Potassium 3.7 mmol/L (3.5-5.1); Sodium 141.0 mmol/L (136-145); Triglycerides 188.0 mg/dl (0-150)
--- NOTE | 2024-10-15 11:53 | Hospitalist Progress Note ---
Date of Service October 15, 2024 Assessment & Plan (1) Abdominal pain, chronic, generalized: (2) Pain disorder: (3) History of seizures: Plan This is a 34 yo female with a past medical history of gastroparesis with chronic abdominal pain s/p PEG and ostomy, hx SMA syndrome s/p multiple abdominal surgeries, chronic pain syndrome (at times requiring ketamine), pseudoseizures in response to pain, iron deficiency anemia, chronic migraines, secondary hyperparathyroidism, and endometriosis who presents on 10/12 due to uncontrolled abdominal pain Abdominal pain, acute on chronic - Patient with history of multiples (x3) abdominal surgery at [facility]. Last surgery performed on Jun [address] Green (transplant surgery). -Etiology of this abdominal pains could be due to adhesions or could be mostly somatic - her Next surgery schedule for December 15. - Discussed with Dr. Green , No need for transfer at this time as the patient is hemodynamically stable, no signs of obstructions or infection at this time. - Continue supportive care and pain management/ hydration/ nausea management - Pain management: - Dilaudid 2mg change from q 4hr to q3 hrs schedule. Dilaudid 1 mg q2 hrs prn. (She takes Oxycodone 15 mg q4hrs, this was recently increased by surgery - Schedule Tylenol - Continue home ativan - Continue fentanyl patch 50 mcg -Continue Zofran q 6hr prn Continue hydration will attempt to wean down her Dilaudid PNES - Suspect increased in frequency due to uncontrolled pain. - No neuro deficit on exam - Continue current pain management - Continue home ativan Severe protein-calorie malnutrition Resume TPN Visceral hyperalgesia chronic pain management, supportive care, outpt surgery and pain management follow up POTS (postural orthostatic tachycardia syndrome) \ Adrenal insufficiency IV fluids, steroids (for adrenal insufficiency as well) - Continue home steroids, vital signs stable no need for stress dose at this time. Seizure-like activity PNES from pain endometriosis norethindrone, 0.35 mg, PO, qAM (patient's own oral contraceptive) during hospital stay DVT prophylaxis - lovenox sq24 Dispo- continue to monitor ([facility] Medical line - [phone]. Tasia -tutor coordinator ([phone]) Admission and Anticipated Discharge Date Admission Date: October 12, 2024 Subjective Patient seen and examined today, mother by the bedside, patient denies shortness of breath, states abdominal pain is under fair control. Review of Systems Review of Systems: All systems reviewed are negative, apart from the ones contained in the history. Physical Exam Physical Exam: The patient is awake, alert and oriented 3, well developed and well nourished, normocephalic and atraumatic, lying in bed and in no acute distress. HEENT--PERRL, EOMI, mucous membranes and oropharynx mildly dry Neck--supple. No JVD. No bruits. Thyroid normal, trachea midline, no adenopathy. Heart--normal S1 and S2. No murmurs, rubs or gallops. Lungs--clear bilaterally, no respiratory distress, no accessory muscle use. Abdomen--normal bowel sounds and soft. Extremities--no cyanosis or clubbing. No edema. Dermatologic--normal skin turgor, normal color, no abnormal lymph nodes, no linda h. Neurologic--cranial nerves II through XII grossly intact. Rheumatologic--normal range of motion. Psychiatric--normal affect. Results & Data Results & Data Vital Signs (Past 12 Hours) Vital Signs Temp Pulse Resp BP Pulse Ox O2 Del Method 10/15/24 07:47 97.7 F 90 14 116/83 95 Room Air PG Care Time/CCT Total # of Minutes Spent Total Time Spent with Patient: Total time spent is greater than 50% in coordination of care (as documented) at patient's floor/unit and/or counseling patient: Coding Level of Care Code 67440 SUB INP/OBS CARE 2/35MIN Diagnoses Abdominal pain, chronic, generalized R10.84; G89.29 Pain disorder R52 History of seizures Z87.898 Time Spent (min) 35
[2024-10-15] MEDS: STOP ORDER: TPN ONE (15:07)
[2024-10-15] MEDS: CENTRAL TPN IV SCH (21:50)
[2024-10-15] MEDS: [UNRECOGNIZED DRUG - OTHER] IV SCH (21:50)
[2024-10-16 06:24] LABS: Anion Gap 4.0 (3-11); Blood Urea Nitrogen 21.0 mg/dl (6-23); Calcium 8.3 mg/dl (8.6-10.3); Carbon Dioxide 29.0 mmol/L (21-32); Chloride 108.0 mmol/L (98-107); Creatinine Clr Calc Pharmacy 160.9 ml/min; Glucose 115.0 mg/dl (70-99(Fasting)); Magnesium 2.0 mg/dl (1.7-2.4); Potassium 3.8 mmol/L (3.5-5.1); Sodium 141.0 mmol/L (136-145)
--- NOTE | 2024-10-16 11:41 | Hospitalist Progress Note ---
Date of Service October 16, 2024 Assessment & Plan (1) Abdominal pain, chronic, generalized: (2) Pain disorder: (3) History of seizures: Plan This is a 34 yo female with a past medical history of gastroparesis with chronic abdominal pain s/p PEG and ostomy, hx SMA syndrome s/p multiple abdominal surgeries, chronic pain syndrome (at times requiring ketamine), pseudoseizures in response to pain, iron deficiency anemia, chronic migraines, secondary hyperparathyroidism, and endometriosis who presents on 10/12 due to uncontrolled abdominal pain Abdominal pain, acute on chronic - Patient with history of multiples (x3) abdominal surgery at [facility]. Last surgery performed on Jun [address] Green (transplant surgery). -Etiology of this abdominal pains could be due to adhesions or could be mostly somatic - her Next surgery schedule for December 15. - Discussed with Dr. Green , No need for transfer at this time as the patient is hemodynamically stable, no signs of obstructions or infection at this time. - Continue supportive care and pain management/ hydration/ nausea management - Pain management: - Dilaudid 2mg change from q 4hr to q3 hrs schedule. Dilaudid 1 mg q2 hrs prn. (She takes Oxycodone 15 mg q4hrs, this was recently increased by surgery - Schedule Tylenol - Continue home ativan - Continue fentanyl patch 50 mcg -Continue Zofran q 6hr prn Continue hydration will attempt to wean down her Dilaudid PNES - Suspect increased in frequency due to uncontrolled pain. -Had 2 episodes of seizures yesterday 10/15/2024 -Nonepileptic seizures - No neuro deficit on exam - Continue current pain management - Continue home ativan -Patient follows up with a neurologist Severe protein-calorie malnutrition Resume TPN Visceral hyperalgesia chronic pain management, supportive care, outpt surgery and pain management follow up POTS (postural orthostatic tachycardia syndrome) \ Adrenal insufficiency IV fluids, steroids (for adrenal insufficiency as well) - Continue home steroids, vital signs stable no need for stress dose at this time. Seizure-like activity PNES from pain endometriosis norethindrone, 0.35 mg, PO, qAM (patient's own oral contraceptive) during hospital stay DVT prophylaxis - lovenox sq24 Dispo- continue to monitor ([facility] Medical line - [phone]. Tasia -department coordinator ([phone]) Admission and Anticipated Discharge Date Admission Date: October 12, 2024 Subjective Patient seen and examined today, mother by the bedside, Had 2 seizures yesterday Review of Systems Review of Systems: All systems reviewed are negative, apart from the ones contained in the history. Physical Exam Physical Exam: The patient is awake, alert and oriented 3, well developed and well nourished, normocephalic and atraumatic, lying in bed and in no acute distress. HEENT--PERRL, EOMI, mucous membranes and oropharynx mildly dry Neck--supple. No JVD. No bruits. Thyroid normal, trachea midline, no adenopathy. Heart--normal S1 and S2. No murmurs, rubs or gallops. Lungs--clear bilaterally, no respiratory distress, no accessory muscle use. Abdomen--normal bowel sounds and soft. Extremities--no cyanosis or clubbing. No edema. Dermatologic--normal skin turgor, normal color, no abnormal lymph nodes, no rash. Neurologic--cranial nerves II through XII grossly intact. Rheumatologic--normal range of motion. Psychiatric--normal affect. Results & Data Results & Data Vital Signs (Past 12 Hours) Vital Signs Temp Pulse Resp BP Pulse Ox O2 Del Method 10/16/24 07:51 97.7 F 87 18 117/81 94 Room Air PG Care Time/CCT Total # of Minutes Spent Total Time Spent with Patient: Total time spent is greater than 50% in coordination of care (as documented) at patient's floor/unit and/or counseling patient: Coding Level of Care Code 59966 SUB INP/OBS CARE 2/35MIN Diagnoses Abdominal pain, chronic, generalized R10.84; G89.29 Pain disorder R52 History of seizures Z87.898 Time Spent (min) 35
[2024-10-16] MEDS: STOP ORDER: TPN ONE (15:00)
[2024-10-16] MEDS: CENTRAL TPN IV SCH (21:36)
[2024-10-16] MEDS: [UNRECOGNIZED DRUG - OTHER] IV SCH (21:36)
[2024-10-17] MEDS: HYDROmorphone INJ 2 MG/ML SYR/VIAL IV SCH (03:32)
[2024-10-17 06:58] LABS: Hematocrit (blood only) 34.8 % (37.0-47.0); Hemoglobin 11.3 g/dl (12.0-16.0); Mean Corpuscular Hemoglobin 29.7 pg (25.0-34.0); Mean Corpuscular Volume 91.6 fL (80.0-100.0); Platelet Count 259 K/uL (130-400); RDW Standard Deviation 51.4 fL (36.4-46.3); Red Blood Count 3.80 M/uL (4.20-5.40); White Blood Count 5.92 K/ul (4.8-10.8)
[2024-10-17 07:19] LABS: Anion Gap 6.0 (3-11); Blood Urea Nitrogen 19.0 mg/dl (6-23); Calcium 8.5 mg/dl (8.6-10.3); Carbon Dioxide 27.0 mmol/L (21-32); Chloride 108.0 mmol/L (98-107); Creatinine Clr Calc Pharmacy 160.9 ml/min; Glucose 96.0 mg/dl (70-99(Fasting)); Magnesium 2.0 mg/dl (1.7-2.4); Potassium 4.1 mmol/L (3.5-5.1); Sodium 141.0 mmol/L (136-145)
--- NOTE | 2024-10-17 12:30 | Hospitalist Progress Note ---
Date of Service October 17, 2024 Assessment & Plan (1) Abdominal pain, chronic, generalized: (2) Pain disorder: (3) History of seizures: Plan This is a 34 yo female with a past medical history of gastroparesis with chronic abdominal pain s/p PEG and ostomy, hx SMA syndrome s/p multiple abdominal surgeries, chronic pain syndrome (at times requiring ketamine), pseudoseizures in response to pain, iron deficiency anemia, chronic migraines, secondary hyperparathyroidism, and endometriosis who presents on 10/12 due to uncontrolled abdominal pain Abdominal pain, acute on chronic - Patient with history of multiples (x3) abdominal surgery at [facility]. Last surgery performed on Jun [address] Green (transplant surgery). -Etiology of this abdominal pains could be due to adhesions or could be mostly somatic - her Next surgery schedule for December 15. - Discussed with Dr. Green , No need for transfer at this time as the patient is hemodynamically stable, no signs of obstructions or infection at this time. - Continue supportive care and pain management/ hydration/ nausea management - Pain management: - Dilaudid 2mg change from q 4hr to q3 hrs schedule. Dilaudid 1 mg q2 hrs prn. (She takes Oxycodone 15 mg q4hrs, this was recently increased by surgery - Schedule Tylenol - Continue home ativan - Continue fentanyl patch 50 mcg -Continue Zofran q 6hr prn Continue hydration will attempt to wean down her Dilaudid today, but a previous attempt resulted worsening pain PNES - Suspect increased in frequency due to uncontrolled pain. -Had 2 episodes of seizures on 10/15/2024 and an episode this morning 10/17 -Nonepileptic seizures - No neuro deficit on exam - Continue current pain management - Continue home ativan -Patient follows up with a neurologist Severe protein-calorie malnutrition Resume TPN Visceral hyperalgesia chronic pain management, supportive care, outpt surgery and pain management follow up POTS (postural orthostatic tachycardia syndrome) \ Adrenal insufficiency IV fluids, steroids (for adrenal insufficiency as well) - Continue home steroids, vital signs stable Seizure-like activity PNES from pain endometriosis norethindrone, 0.35 mg, PO, qAM (patient's own oral contraceptive) during hospital stay DVT prophylaxis - lovenox sq24 Dispo- continue to monitor ([facility] Medical line - [phone] Dozier -enrollment coordinator ([phone]) Admission and Anticipated Discharge Date Admission Date: October 12, 2024 Subjective Patient seen and examined today, mother by the bedside, Had one seizure this morning, lasted a few seconds Review of Systems Review of Systems: All systems reviewed are negative, apart from the ones contained in the history. Physical Exam Physical Exam: The patient is awake, alert and oriented 3, well developed and well nourished, normocephalic and atraumatic, lying in bed and in no acute distress. HEENT--PERRL, EOMI, mucous membranes and oropharynx mildly dry Neck--supple. No JVD. No bruits. Thyroid normal, trachea midline, no adenopathy. Heart--normal S1 and S2. No murmurs, rubs or gallops. Lungs--clear bilaterally, no respiratory distress, no accessory muscle use. Abdomen--normal bowel sounds and soft. Extremities--no cyanosis or clubbing. No edema. Dermatologic--normal skin turgor, normal color, no abnormal lymph nodes, no rash. Neurologic--cranial nerves II through XII grossly intact. Rheumatologic--normal range of motion. Psychiatric--normal affect. Results & Data Results & Data Vital Signs (Past 12 Hours) Vital Signs Temp Pulse Resp BP Pulse Ox O2 Del Method 10/17/24 12:21 97.9 F 71 17 92/62 L 97 Room Air 10/17/24 07:30 97.7 F 93 H 16 114/78 97 Room Air PG Care Time/CCT Total # of Minutes Spent Total Time Spent with Patient: Total time spent is greater than 50% in coordination of care (as documented) at patient's floor/unit and/or counseling patient: Coding Level of Care Code 91345 SUB INP/OBS CARE 2/35MIN Diagnoses Abdominal pain, chronic, generalized R10.84; G89.29 Pain disorder R52 History of seizures Z87.898 Time Spent (min) 35
[2024-10-17] MEDS: STOP ORDER: TPN ONE (15:43)
[2024-10-17] MEDS: CLINOLIPID 20% IV FAT EMULSION 250 ML IV SCH (21:14)
[2024-10-17] MEDS: AA 8%/D14W 2L 1,297 ML in Central TPN bag 0 ML IV SCH (21:14)
[2024-10-17] MEDS: HYDROmorphone INJ 1 MG/ML SYRINGE IV STA (23:52)
[2024-10-18] MEDS: STOP CLINOLIPID SCH (05:00)
--- NOTE | 2024-10-18 07:58 | Hospitalist Progress Note ---
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 Last surgery performed on Jun [address] Green (transplant surgery). Next surgery schedule for December 15. - Discussed with Dr. Green today (10/13) care management. No need for transfer at this time as the patient is hemodynamically stable, no signs of obstructions or infection at this time. No leukocytosis, no transaminitis, normal lipase. Hemodynamically stable, no fever. ([facility] Medical line - [phone]. Tasia -plan coordinator ([phone]) - Nothing indicating surgical emergency - Continue supportive care and pain management/ hydration/ nausea management - Plan to eventually discuss spinal cord stimulator (in the past, had good success with pain control on the SCS trial) - Pain management: - Started SCREEN CUTTER AND TRIMMER, Dilaudid 0.5mg q10min prn - Scheduled Ativan at 1mg IV q6h - Scheduled IV Tylenol - Continue fentanyl patch 50 mcg - Previously: Dilaudid 2mg q3h anthony + Dilaudid 1 mg q2h prn + oxy 15mg q4h (this was recently increased by surgery) - Continue Zofran q 6hr prn - Maintenance IVF with Lactated Ringers 125 ml/hr PNES - Suspect increased in frequency due to uncontrolled pain & vasovagal response - No neuro deficit on exam - Continue current pain management - PCU for continues monitoring - Continue Ativan as above Severe protein-calorie malnutrition - Continue TPN - Continue IVF as above - BMP with AM labs Visceral hyperalgesia - chronic pain management, supportive care, outpt surgery and pain management follow up POTS (postural orthostatic tachycardia syndrome) \\ Adrenal insufficiency - IV fluids, steroids (for adrenal insufficiency as well) - Continue home steroids, vital signs stable no need for stress dose at this t sanjuanita. Endometriosis - norethindrone, 0.35 mg, PO, qAM (patient's own oral contraceptive) during hospital stay FENGI - TPN / LR DVT prophylaxis - lovenox sq24 Dispo - Admit to PCU Admission and Anticipated Discharge Date Admission Date: October 12, 2024 Supervising Physician Co-Signing Physician Notes I personally examined the patient and verified all solorzano points of history and exam, discussed case, and agree with decision making with Dr Mcmillan Seen twice today. Initially in severe amount of pain having had multiple PNES/vagal episodes, nauseated. Vitals noted. Appears doubled over in pain and nauseated. HEENT normocephalic atraumatic mucous membranes moist. Abdomen not firm or rigid, difficult exam due to multiple tubes and scarring, but no rigidity or guardingbut also any palpation led to episodes of nausea and vomiting. On revisit later she is much Colmer her pain is under much better control she looks to be more in her "usual state when she needs to be hospitalized"i.e. she still looks very fatigued and mildly uncomfortable but fortunately not in the severe distress of earlier. Acute on chronic abdominal paincomplicated situation with adhesions, functional pain, visceral hyperalgesia, motility issues, and the overall baseline physiology complicated by POTS, +/- mast cell activationgiven that she had had multiple episodes today I did send a tryptase level that way immunology can compare it to what they sent as a baseline. IV fluids to mitigate POTS physiology (although she was not tachycardic as she frequently is) increased pain controlPCA. Increase nausea controlscheduled Ativan. On revisit things seemed to be much improved. Discussed openly my concerns about a future surgery, but also that her current surgical team seems to have had a pretty good track record given her marked decrease in hospitalizations since they assumed her care. Subjective Still with significant pain, leading to cycle of pain --> dry heaving --> pseudoseizures. No emesis. No dizzy/lightheadedness. Having output from G-tube but not ostomy. Review of Systems Review of Systems: as per hpi Physical Exam Constitutional: WD/WN, vitals as above ENMT: external ear and nose normal, oropharynx normal Respiratory: normal respiratory effort, lungs clear to auscultation Cardiovascular: RRR, no murmur, no edema Gastrointestinal (Abdomen): Inspection/Auscultation: abdomen normal to inspection, + abdomen distended and normal bowel sounds Percussion/Palpation: + abdomen tender (Right upper quadrant) and abdomen soft; no guarding, abdomen not rigid and no abdominal mass Musculoskeletal: no cyanosis or clubbing, extremities motor strength 5/5 Skin: no rashes, warm and dry Results & Data Results & Data Vital Signs (Past 12 Hours) Vital Signs Temp Pulse Resp BP BP Pulse Ox O2 Del Method 10/18/24 07:27 36.6 C 89 16 107/75 96 Room Air 10/17/24 20:46 36.7 C 88 18 115/78 96 Room Air Resident Activity Tracking Resident Involvement: Resident Care Provided Care Provided: Adult Hospital Medicine
[2024-10-18 08:22] LABS: Anion Gap 5.0 (3-11); Blood Urea Nitrogen 23.0 mg/dl (6-23); Calcium 8.6 mg/dl (8.6-10.3); Carbon Dioxide 31.0 mmol/L (21-32); Chloride 105.0 mmol/L (98-107); Creatinine Clr Calc Pharmacy 154.3 ml/min; Glucose 86.0 mg/dl (70-99(Fasting)); Magnesium 2.1 mg/dl (1.7-2.4); Potassium 4.2 mmol/L (3.5-5.1); Sodium 141.0 mmol/L (136-145)
--- NOTE | 2024-10-18 13:13 | Pharmacy Report ---
Pharmacy PN Follow-up Note - Date of Service October 18, 2024 - Subjective Patient is currently on day #5 of inpatient TPN (continuation of chronic TPN). * The patient is a 34 year old Female admitted on 10/12/24 for uncontrolled abdominal pain * Patient is to receive parenteral nutrition for continuation of chronic TPN * Pertinent PMHx: complicated GI history including SMA syndrome w/ gastroparesis and chronic abdominal pain, severe protein-calorie malnutrition. POTS, adrenal insufficiency, and PNES. * Pertinent surgical history: s/p PEG/ostomy placement, multiple abdominal surgeries including a transplant surgery most recently in June 2024 - Objective Height & Weight (Last Documented) Height 5 ft 6 in Weight 65.1 kg Diet Order(s) 10/12/24 12:33 NPO Intake & Ouput (24hrs) 10/17/24 10/18/24 10/19/24 06:59 06:59 06:59 Intake Total 1559.300 / 6510.127 2365.533 / 2199.533 Output Total 2100 / 2100 2150 / 2150 Balance -540.700 / -540.700 49.533 / 49.533 Selected Laboratory Results 10/18/24 07:31 Sodium 141 Potassium 4.2 Chloride 105 Carbon Dioxide 31 Anion Gap 5 BUN 23 Creatinine 0.49 L BUN/Creatinine Ratio 46.9 H Glucose 86 Calcium 8.6 Phosphorus 3.7 Magnesium 2.1 - Assessment & Plan Assessment: * DF is a 34 year old female well known to pharmacy parenteral nutrition consult service (see medical/surgical history above). * Patient reports increased nausea and refused lipids last evening. Will hold again today and reassess tomorrow. * Electrolytes have been largely stable and WNL * Will adjust back to chloride>acetate * Monitor phosphate and remove/reduce if continued up-trend Plan: * For Day #5 of TPN administration, the following will be ordered: * Macronutrients: * Amino Acids: 96 grams/day * Dextrose: 168 grams/day * Hold lipids for nausea, reassess in AM * Micronutrients: * Sodium chloride: 50 mEq/day * Potassium phosphate: 9 mMol/day * Potassium chloride: 60 mEq/day * Magnesium sulfate: 8.12 mEq/day * Calcium gluconate: 18.6 mEq/day * Multivitamins: 10 mL/day * Trace elements: 1 mL/day * Thiamine: 100 mg/day * Total volume of 1297 mL will be infused over 18 hours and will provide 955 kcal/day * Labs will be ordered per PN protocol. * Pharmacy will follow and adjust PN orders on a daily basis. Thank you!
[2024-10-18] MEDS ORDERED: NALOXONE HCL 0.4 MG/1 ML VIAL/CARP IV PRN (13:44)
[2024-10-18] MEDS: LACTATED RINGER'S 1,000 ML IV SCH (14:05)
[2024-10-18] MEDS: ACETAMINOPHEN 1,000 MG/100 ML VIAL IV SCH (14:06)
[2024-10-18] MEDS: SODIUM CHLORIDE 0.9% 1,000 ML IV SCH (15:00)
[2024-10-18] MEDS: HYDROmorphone PCA 30 MG/30 ML IV PRN (15:26)
--- NOTE | 2024-10-18 19:22 | Billing Data ---
Date of Service October 18, 2024 Coding Level of Care Code 66900 SUB INP/OBS CARE
[2024-10-18] MEDS: AA 8%/D14W 2L 1,297 ML in Central TPN bag 0 ML IV SCH (21:23)
[2024-10-18] MEDS: HYDROmorphone INJ 1 MG/ML SYRINGE IV SCH (21:55)
--- NOTE | 2024-10-19 06:49 | Hospitalist Progress Note ---
Date of Service October 19, 2024 Assessment & Plan (1) Abdominal pain, chronic, generalized: (2) Pain disorder: (3) History of seizures: Plan 34 yo female with a past medical history of gastroparesis with chronic abdominal pain s/p PEG and ostomy, hx SMA syndrome s/p multiple abdominal surgeries, chronic pain syndrome (at times requiring ketamine), pseudoseizures in response to pain, iron deficiency anemia, chronic migraines, secondary hyperparathyroidism, and endometriosis who presents on 10/12 due to uncontrolled abdominal pain Abdominal pain, acute on chronic - Ddx includes motility, adhesional, SMA obstruction - Patient with history of multiples (x3) abdominal surgery at [facility]. Last surgery performed on Jun [address] Green (transplant surgery). Next surgery schedule for December 15. Discussion with Dr. Green on 10/13 indicated no need for transfer at this time, while patient is hemodynamically stable w/ no signs of obstructions or infection. [facility] Medical line - [phone]. Tasia -volunteer coordinator ([phone]) - Will reach back out to [facility] to update on her condition and see if they think transfer is necessary/appropriate as pt having worsening pain/increasing analgesia need, as well as more G-tube and less ostomy output. - Plan to eventually discuss spinal cord stimulator (in the past, had good success with pain control on the SCS trial) - Pain management: - Started POU[employer] MAORI, Dilaudid 0.5mg q10min prn - Scheduled Ativan at 1mg IV q6h - Scheduled IV Tylenol - Continue fentanyl patch 50 mcg - Previously: Dilaudid 2mg q3h anthony + Dilaudid 1 mg q2h prn + oxy 15mg q4h (this was recently increased by surgery) - Continue Zofran q 6hr prn - Maintenance IVF with Lactated Ringers 125 ml/hr PNES - Suspect increased in frequency due to uncontrolled pain & vasovagal response - No neuro deficit on exam - Continue current pain management - PCU for continues monitoring - Continue Ativan as above Severe protein-calorie malnutrition - Continue TPN - Continue IVF as above - BMP with AM labs Visceral hyperalgesia - chronic pain management, supportive care, outpt surgery and pain management follow up POTS (postural orthostatic tachycardia syndrome) \ Adrenal insufficiency - IV fluids, steroids (for adrenal insufficiency as well) - Continue home steroids, vital signs stable no need for stress dose at this time. Endometriosis - norethindrone, 0.35 mg, PO, qAM (patient's own oral contraceptive) during hospital stay FENGI - TPN / LR DVT prophylaxis - lovenox sq24 Dispo - Admit to PCU Admission and Anticipated Discharge Date Admission Date: October 12, 2024 Supervising Physician Co-Signing Physician Notes I personally examined the patient and verified all solorzano points of history and exam, discussed case, and agree with decision making with Dr Mcmillan pain under better control. nausea under better control. vitals noted nad heent nc at mmm breathing unlabored no accessory muscles good effort skin no rashes no pallor or icterus neuro no focal deficits. Acute on chronic abdominal paincomplicated situation with adhesions, functional pain, visceral hyperalgesia, motility issues, and the overall baseline physiology complicated by POTS, +/- mast cell activationgiven that she had had multiple I did send a tryptase level that way immunology can compare it to what they sent as a baseline. continue IV fluids to mitigate POTS physiology (although she was not as tachycardic as she frequently is) increased pain controlPCA with additional IV dilauded - doing better. Increased nausea controlscheduled Ativan - doing better. continue current care for now Subjective Feeling better today on P[employer] MAORI. Having some ostomy output along with G-tube. No nausea/vomiting/dry-heaving. Review of Systems Review of Systems: as per hpi Physical Exam Constitutional: WD/WN, vitals as above ENMT: external ear and nose normal, oropharynx normal Respiratory: normal respiratory effort, lungs clear to auscultation Cardiovascular: RRR, no murmur, no edema Gastrointestinal (Abdomen): Inspection/Auscultation: abdomen normal to inspection, + abdomen distended and normal bowel sounds Percussion/Palpation: + abdomen tender and abdomen soft; no guarding, abdomen not rigid and no abdominal mass Musculoskeletal: no cyanosis or clubbing, extremities motor strength 5/5 Skin: no rashes, warm and dry Results & Data Results & Data Vital Signs (Past 12 Hours) Vital Signs Temp Pulse Resp BP Pulse Ox O2 Del Method 10/19/24 03:35 36.5 C 92 H 16 108/74 95 Room Air 10/18/24 23:08 36.5 C 85 16 110/76 97 Room Air Resident Activity Tracking Resident Involvement: Resident Care Provided Care Provided: Adult Hospital Medicine
[2024-10-19 08:36] LABS: Anion Gap 6.0 (3-11); Blood Urea Nitrogen 23.0 mg/dl (6-23); Calcium 8.6 mg/dl (8.6-10.3); Carbon Dioxide 30.0 mmol/L (21-32); Chloride 105.0 mmol/L (98-107); Creatinine Clr Calc Pharmacy 151.2 ml/min; Glucose 83.0 mg/dl (70-99(Fasting)); Magnesium 2.0 mg/dl (1.7-2.4); Potassium 4.3 mmol/L (3.5-5.1); Sodium 141.0 mmol/L (136-145)
[2024-10-19] MEDS: STOP ORDER: TPN ONE (14:56)
--- NOTE | 2024-10-19 18:19 | Billing Data ---
Date of Service October 19, 2024 Coding Level of Care Code 33599 SUB INP/OBS CARE
[2024-10-19] MEDS: CENTRAL TPN IV SCH (21:34)
[2024-10-19] MEDS: [UNRECOGNIZED DRUG - OTHER] IV SCH (21:34)
--- NOTE | 2024-10-20 07:26 | Hospitalist Progress Note ---
Date of Service October 20, 2024 Assessment & Plan (1) Abdominal pain, chronic, generalized: (2) Pain disorder: (3) History of seizures: Plan 34 yo female with a past medical history of gastroparesis with chronic abdominal pain s/p PEG and ostomy, hx SMA syndrome s/p multiple abdominal surgeries, chronic pain syndrome (at times requiring ketamine), pseudoseizures in response to pain, iron deficiency anemia, chronic migraines, secondary hyperparathyroidism, and endometriosis who presents on 10/12 due to uncontrolled abdominal pain Abdominal pain, acute on chronic - Ddx includes motility, adhesional, SMA obstruction - Patient with history of multiples (x3) abdominal surgery at [facility]. Last surgery performed on Jun [address] Green (transplant surgery). Next surgery schedule for December 15. Discussion with Dr. Green on 10/13 indicated no need for transfer at this time, while patient is hemodynamically stable w/ no signs of obstructions or infection. [facility] Medical line - [phone]. Tasia - her specific coordinator ([phone]) - Will reach back out to [facility] to update on her condition and see if they think transfer is necessary/appropriate as pt having worsening pain/increasing analgesia need, as well as more G-tube and less ostomy output. In addition to above, patient provided # for Dr. Green & for coordinator transportation department supervisor - Will ask CM to pursue spinal cord stimulator (in the past, had good success with pain control on the SCS trial) - Pain management: - Increased YARD SWITCH OPERATOR to Dilaudid 0.75mg q10min prn - Continue Dilaudid 1 mg q2h prn. Added 2mg qHS - Scheduled Ativan at 1mg IV q6h - Scheduled IV Tylenol - Continue fentanyl patch 50 mcg - Continue Zofran q 6hr prn - Maintenance IVF with Lactated Ringers 125 ml/hr - Due to persistent abd pain + retching at a particular spot, will obtain SBFT to r/o duodenal stricture as cause PNES - Suspect increased in frequency due to uncontrolled pain & vasovagal response - No neuro deficit on exam - Continue current pain management - PCU for continues monitoring - Continue Ativan as above Severe protein-calorie malnutrition - Continue TPN - Continue IVF as above - BMP with AM labs Visceral hyperalgesia - chronic pain management, supportive care, outpt surgery and pain management follow up POTS (postural orthostatic tachycardia syndrome) \\ Adrenal insufficiency - IV fluids, steroids (for adrenal insufficiency as well) - Continue home steroids, vital signs stable no need for stress dose at this time. Endometriosis - norethindrone, 0.35 mg, PO, qAM (patient's own oral contraceptive) during hospital stay FENGI - TPN / LR DVT prophylaxis - lovenox sq24 Dispo - Admit to PCU Admission and Anticipated Discharge Date Admission Date: October 12, 2024 Supervising Physician Co-Signing Physician Notes I personally examined the patient and verified all solorzano points of history and exam, discussed case, and agree with decision making with Dr Mcmillan [place] like she got behind on pain overnight and is now having hard time catching up. Multiple PNES episodes through the day. Vitals noted, in general she is awake and alert appears somewhat uncomfortable. Abdomen is soft, but in the same area of her right upper abdomen where provoked dry heaving on prior exam, she is exquisitely tender and has immediate dry heaves. Her ostomy itself appears intact and normal, but it is just above the ostomy area where she has such reproducible exquisite tenderness that immediately provokes dry heaving. Neuro without focal deficits. Acute on chronic abdominal paincomplicated situation with adhesions, functional pain, visceral hyperalgesia, motility issues, and the overall baseline physiology complicated by POTS, +/- mast cell activationgiven that she had had multiple I did send a tryptase level that way immunology can compare it to what they sent as a baseline. continue IV fluids to mitigate POTS physiology (although she was not as tachycardic as she frequently is) , And continue pain controlfor now increase YARD SWITCH OPERATOR slightly, increase at bedtime dosing of Dilaudid to stay ahead of pain as she gets to sleep. Given that she has such reproducible tenderness in her upper abdomen and apparently has a degree of an obstruction or stricture or funnelingand that her pain seems to be so much more exquisitesmall bowel follow-through to ensure no acute pathology that would require immediate intervention or severe enough pathology that trying to manage this conservatively would become irrational. Will also ask nurse navigator to help set up pain management to get back towards trial of or implantation of spinal cord stimulator. Subjective Had "a really rough" night. Inadequate pain control, prolonged dry-heaving, multiple seizures. Did not feel supported or validated by nursing staff. In significant pain today with continued pseudoseizures. No SOB. Retching improved, no emesis. Does feel somewhat dizzy/lightheaded but is able to sit up and interact. Having some ostomy output (~500 logged) but more from G-tube (~1400). Review of Systems Review of Systems: as per hpi Physical Exam Constitutional: well nourished, + ill appearing and cooperative Eyes: + anicteric sclerae ENMT: external ear and nose normal, oropharynx normal Respiratory: normal respiratory effort, lungs clear to auscultation Cardiovascular: RRR, no murmur, no edema Gastrointestinal (Abdomen): Inspection/Auscultation: abdomen normal to inspection, + abdomen distended and normal bowel sounds Percussion/Palpation: + abdomen tender and abdomen soft; no guarding, abdomen not rigid and no abdominal mass Musculoskeletal: no cyanosis or clubbing, extremities motor strength 5/5 Skin: no rashes, warm and dry Results & Data Results & Data Vital Signs (Past 12 Hours) Vital Signs Temp Pulse Resp BP BP Pulse Ox O2 Del Method 10/20/24 01:33 36.7 C 96 H 14 118/85 97 Room Air 10/19/24 21:01 96 H 16 104/71 94 Room Air 10/19/24 20:28 36.7 C 94 H 16 109/74 92 Room Air Resident Activity Tracking Resident Involvement: Resident Care Provided Care Provided: Adult Hospital Medicine
[2024-10-20 09:29] LABS: Anion Gap 4.0 (3-11); Blood Urea Nitrogen 21.0 mg/dl (6-23); Calcium 8.6 mg/dl (8.6-10.3); Carbon Dioxide 30.0 mmol/L (21-32); Chloride 107.0 mmol/L (98-107); Creatinine Clr Calc Pharmacy 154.3 ml/min; Glucose 92.0 mg/dl (70-99(Fasting)); Magnesium 2.0 mg/dl (1.7-2.4); Potassium 4.3 mmol/L (3.5-5.1); Sodium 141.0 mmol/L (136-145)
[2024-10-20] MEDS: STOP ORDER: TPN ONE (15:00)
[2024-10-20] MEDS: HYDROmorphone INJ 1 MG/ML SYRINGE IV STA (16:45)
--- NOTE | 2024-10-20 17:44 | Billing Data ---
Date of Service October 20, 2024 Coding Level of Care Code 76405 SUB INP/OBS CARE MIN
[2024-10-20] MEDS: HYDROmorphone INJ 1 MG/ML SYRINGE IV SCH (22:08)
[2024-10-20] MEDS: [UNRECOGNIZED DRUG - OTHER] IV SCH (22:38)
[2024-10-20] MEDS: CENTRAL TPN IV SCH (22:38)
[2024-10-21 07:03] LABS: Hematocrit (blood only) 33.0 % (37.0-47.0); Hemoglobin 10.6 g/dl (12.0-16.0); Mean Corpuscular Hemoglobin 30.0 pg (25.0-34.0); Mean Corpuscular Volume 93.5 fL (80.0-100.0); Platelet Count 245 K/uL (130-400); RDW Standard Deviation 54.2 fL (36.4-46.3); Red Blood Count 3.53 M/uL (4.20-5.40); White Blood Count 4.19 K/ul (4.8-10.8)
[2024-10-21 07:17] LABS: Alanine Aminotransferase 52.0 U/L (7-52); Alkaline Phosphatase 76.0 U/L (34-104); Anion Gap 4.0 (3-11); Bilirubin,Total 0.2 mg/dl (0.2-1.0); Blood Urea Nitrogen 21.0 mg/dl (6-23); Calcium 8.6 mg/dl (8.6-10.3); Carbon Dioxide 31.0 mmol/L (21-32); Chloride 106.0 mmol/L (98-107); Creatinine Clr Calc Pharmacy 154.3 ml/min; Glucose 102.0 mg/dl (70-99(Fasting)); Magnesium 2.0 mg/dl (1.7-2.4); Potassium 3.8 mmol/L (3.5-5.1); Sodium 141.0 mmol/L (136-145); Triglycerides 215.0 mg/dl (0-150)
--- NOTE | 2024-10-21 09:37 | Hospitalist Progress Note ---
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 Last surgery performed on Jun [address] Green (transplant surgery). Next surgery schedule for December 15. Discussion with Dr. Green on 10/13 indicated no need for transfer at this time, while patient is hemodynamically stable w/ no signs of obstructions or infection. [facility] Medical line - [phone]. Tasia - her specific coordinator ([phone]) - Contacted [facility] on 10/21 to update on her condition and see if they think transfer is necessary/appropriate as pt having worsening pain/increasing analgesia need, as well as more G-tube and less ostomy output. Spoke with Dr. Green, who suggested completely open G-tube + adding suction. He also mentioned their team had success with pain control using 5-10ug ketamine / hr for 72h. - Will ask CM to pursue spinal cord stimulator (in the past, had good success with pain control on the SCS trial) - Pain management: - Increased STILL OPERATOR HELPER to Dilaudid 0.75mg q10min prn - Continue Dilaudid 1 mg q2h prn. Added 2mg qHS - Scheduled Ativan at 1mg IV q6h - Scheduled IV Tylenol - Continue fentanyl patch 50 mcg - Continue Zofran q 6hr prn - Maintenance IVF with Lactated Ringers 125 ml/hr - Due to persistent abd pain + retching at a particular spot, will obtain SBFT to r/o duodenal stricture as cause PNES - Suspect increased in frequency due to uncontrolled pain & vasovagal response - No neuro deficit on exam - Continue current pain management - PCU for continues monitoring - Continue Ativan as above Severe protein-calorie malnutrition - Continue TPN - Continue IVF as above - BMP with AM labs Visceral hyperalgesia - chronic pain management, supportive care, outpt surgery and pain management follow up POTS (postural orthostatic tachycardia syndrome) \ Adrenal insufficiency - IV fluids, steroids (for adrenal insufficiency as well) - Continue home steroids, vital signs stable no need for stress dose at this time. Endometriosis - norethindrone, 0.35 mg, PO, qAM (patient's own oral contraceptive) during hospital stay FENGI - TPN / LR DVT prophylaxis - lovenox sq24 Dispo - Admit to PCU Admission and Anticipated Discharge Date Admission Date: October 12, 2024 Supervising Physician Co-Signing Physician Notes I personally examined the patient and verified all solorzano points of history and exam, discussed case, and agree with decision making with Dr Mcmillan feels like she is catching up with the pain, although the small bowel follow- through caused some problems. Dr. Mcmillan [place] able [place] through and it sounds very stable. He noted that she did well with her G-tube on suction and ketamine. In discussing this with the patient, she is good with the G-tube to suction, would not be opposed to ketamine, but also because of current hospital rules and requiring in the ICU for it, she is much more reticent due to the unsettling situation of moving to the ICU/etc.she notes of her pain does not seem to follow She certainly not opposed to the ketamine, and if it would be able to be given on the floor with less commotion, she would not be opposedbut for now would prefer to hold off. Vitals noted, in general she is awake and alert fatigued but no overt distress. Breathing unlabored no accessory muscle use good effort. Skin without rashes pallor or icterus. Neuro without focal deficits. Acute on chronic abdominal paincomplicated situation with adhesions, functional pain, visceral hyperalgesia, motility issues, and the overall baseline physiology complicated by POTS, +/- mast cell activationgiven that she had had multiple I did send a tryptase level that way immunology can compare it to what they sent as a baseline. continue IV fluids to mitigate POTS physiology (although she was not as tachycardic as she frequently is) , Continue pain control, G-tube to suction, low threshold to transfer for ketamine, but hold off for now. Otherwise as above. Subjective Feeling okay this morning. Says there were no issues overnight. Pain is adequately controlled. Still having little ostomy output and significantly more G-tube output. Review of Systems Review of Systems: as per hpi Physical Exam Constitutional: WD/WN, vitals as above well nourished, + ill appearing and cooperative Eyes: + anicteric sclerae ENMT: external ear and nose normal, oropharynx normal Respiratory: normal respiratory effort, lungs clear to auscultation Cardiovascular: RRR, no murmur, no edema Gastrointestinal (Abdomen): Inspection/Auscultation: abdomen normal to inspection, + abdomen distended and normal bowel sounds Percussion/Palpation: + abdomen tender and abdomen soft; no guarding, abdomen not rigid and no abdominal mass Musculoskeletal: no cyanosis or clubbing, extremities motor strength 5/5 Skin: no rashes, warm and dry Results & Data Results & Data Vital Signs (Past 12 Hours) Vital Signs Temp Pulse Pulse Resp BP Pulse Ox O2 Del Method 10/21/24 07:34 36.5 C 84 18 110/74 98 Room Air 10/21/24 03:07 36.6 C 74 18 106/72 98 Nasal Cannula 10/21/24 01:18 10/20/24 23:02 80 O2 Flow Rate 10/21/24 07:34 10/21/24 03:07 10/21/24 01:18 1 10/20/24 23:02
--- NOTE | 2024-10-21 12:07 | Pharmacy Report ---
Pharmacy PN Follow-up Note - Date of Service October 21, 2024 - Subjective Patient is currently on day #8 of TPN for chronic- complicated GI history. - Objective Height & Weight (Last Documented) Height 5 ft 6 in Weight 68.1 kg Diet Order(s) 10/12/24 12:33 NPO Intake & Ouput (24hrs) 10/20/24 10/21/24 10/22/24 06:59 06:59 06:59 Intake Total 3420.650 / 3420.650 2380.025 / 2380.025 656.25 / 656.25 Output Total 1500 / 1500 Balance 3420.650 / 3420.650 880.025 / 880.025 656.25 / 656.25 Selected Laboratory Results 10/21/24 06:16 Sodium 141 Potassium 3.8 Chloride 106 Carbon Dioxide 31 Anion Gap 4 BUN 21 Creatinine 0.49 L BUN/Creatinine Ratio 42.9 H Glucose 102 H Calcium 8.6 Phosphorus 4.1 Magnesium 2.0 Total Bilirubin 0.2 AST 27 ALT 52 Alkaline Phosphatase 76 Triglycerides 215 H - Assessment & Plan Assessment: 10/21: * Labs largely stable, add back in small amount of phosphate, no other electrolyte adjustments to TPN today * Pilar still reporting nausea, small bowel follow through today. Requests lipids are held again. Typically MWF lipids. 10/18: * ANSELMO is a 34 year old female well known to pharmacy parenteral nutrition consult service (see medical/surgical history above). * Patient reports increased nausea and refused lipids last evening. Will hold again today and reassess tomorrow. * Electrolytes have been largely stable and WNL * Will adjust back to chloride>acetate * Monitor phosphate and remove/reduce if continued up-trend Plan: * For Day #8 of TPN administration, the following will be ordered: * Macronutrients: * Amino Acids: 96 grams/day * Dextrose: 168 grams/day * Hold lipids per patient request * Micronutrients: * Sodium chloride: 50 mEq/day * Potassium phosphate: 6 mMol/day * Potassium chloride: 60 mEq/day * Magnesium sulfate: 8.12 mEq/day * Calcium gluconate: 18.6 mEq/day * Multivitamins: 10 mL/day * Trace elements: 1 mL/day * Thiamine: 100 mg/day * Total volume of 1296 mL will be infused over 18 hours and will provide 955 kcal/day * Labs will be ordered per PN protocol. * Pharmacy will follow and adjust PN orders on a daily basis. Thank you!
--- NOTE | 2024-10-21 12:26 | Fluoroscopy Report ---
FL small bowel follow through CLINICAL HISTORY: duodenal stricture. SMA syndrome TECHNIQUE: Oral barium was administered to the patient and serial radiographs of the abdomen were pe rformed. 9 radiographs. COMPARISON STUDY: CT of 10/12/2024 FINDINGS: PEG tube is present and there are right abdominal surgical clips. Contrast was injected int o the PEG tube. The contrast progresses from the stomach to the duodenum. There is duodenal distentio n measuring up to 4 cm greatest diameter. There is apparent stricture at the distal duodenum and prox imal jejunum at the midline, but the contrast progresses to the jejunum after mild delay. Contrast pr ogresses to the right lower quadrant ostomy bag by 1 hour 20 minutes. Small bowel fold pattern is unr emarkable. No other small bowel distention or stricture seen. IMPRESSION: Findings consistent with history of SMA syndrome. Liquid contrast progresses past the mid line stricture after mild delay. ACT 112: Negative or not required by law. The above report was generated using voice recognition software. It may contain grammatical, syntax o r spelling errors. Electronically signed by: Jr Quijano M.D. 10/21/2024 12:24 PM
[2024-10-21] MEDS: STOP ORDER: TPN ONE (15:43)
[2024-10-21] MEDS: LACTATED RINGER'S 1,000 ML IV SCH (16:11)
--- NOTE | 2024-10-21 19:08 | Billing Data ---
Date of Service October 21, 2024 Coding Level of Care Code 95023 SUB INP/OBS CARE MIN
[2024-10-21] MEDS: [UNRECOGNIZED DRUG - OTHER] IV SCH (22:13)
[2024-10-21] MEDS: CENTRAL TPN IV SCH (22:13)
--- NOTE | 2024-10-22 06:45 | Hospitalist Progress Note ---
Date of Service October 22, 2024 Assessment & Plan (1) Abdominal pain, chronic, generalized: (2) Pain disorder: (3) History of seizures: Plan 34 yo female with a past medical history of gastroparesis with chronic abdominal pain s/p PEG and ostomy, hx SMA syndrome s/p multiple abdominal surgeries, chronic pain syndrome (at times requiring ketamine), pseudoseizures in response to pain, iron deficiency anemia, chronic migraines, secondary hyperparathyroidism, and endometriosis who presents on 10/12 due to uncontrolled abdominal pain Abdominal pain, acute on chronic - Ddx includes motility, adhesional, SMA obstruction - Patient with history of multiples (x3) abdominal surgery at [facility]. Last surgery performed on Jun [address] Green (transplant surgery). Next surgery schedule for December 15. Discussion with Dr. Green on 10/13 indicated no need for transfer at this time, while patient is hemodynamically stable w/ no signs of obstructions or infection. [facility] Medical line - [phone]. Tasia - her specific coordinator ([phone]) - Contacted [facility] on 10/21 to update on her condition and see if they think transfer is necessary/appropriate as pt having worsening pain/increasing analgesia need, as well as more G-tube and less ostomy output. Spoke with Dr. Green, who suggested completely open G-tube + adding suction. He also mentioned their team had success with pain control using 5-10ug ketamine / hr for 72h. - Will ask CM to pursue spinal cord stimulator (in the past, had good success with pain control on the SCS trial) - Pain management: - Increased CREELER to Dilaudid 0.75mg q10min prn - Continue Dilaudid 1 mg q2h prn. Added 2mg qHS - Scheduled Ativan at 1mg IV q6h - Scheduled IV Tylenol - Continue fentanyl patch 50 mcg - SBFT obtained due to persistent abdominal pain and retching at specific spot. Results as follows: "Contrast was injected into the PEG tube. The contrast progresses from the stomach to the duodenum. There is duodenal distention measuring up to 4 cm greatest diameter. There is apparent stricture at the distal duodenum and proximal jejunum at the midline, but the contrast progresses to the jejunum after mild delay. Contrast progresses to the right lower quadrant ostomy bag by 1 hour 20 minutes. Small bowel fold pattern is unremarkable. No other small bowel distention or stricture seen." Findings read as consistent with hx of SMA syndrome - Continue Zofran q 6hr prn - Maintenance IVF with Lactated Ringers 125 ml/hr PNES - Suspect increased in frequency due to uncontrolled pain & vasovagal response - No neuro deficit on exam - Continue current pain management - PCU for continues monitoring - Continue Ativan as above Severe protein-calorie malnutrition - Continue TPN - BMP this am return with BSG of 288, repeat POC BSG was 100, which seems more accurate. - K+ also found to have increased from 3.8 on 10/21 to 5.0 today. Will continue to monitor. - Continue IVF as above - BMP with AM labs Visceral hyperalgesia - chronic pain management, supportive care, outpt surgery and pain management follow up POTS (postural orthostatic tachycardia syndrome) \\ Adrenal insufficiency - IV fluids, steroids (for adrenal insufficiency as well) - Continue home steroids, vital signs stable no need for stress dose at this time. Endometriosis - norethindrone, 0.35 mg, PO, qAM (patient's own oral contraceptive) during hospital stay [facility]ENGI - TPN / LR DVT prophylaxis - lovenox sq24 Dispo - Admit to PCU Admission and Anticipated Discharge Date Admission Date: October 12, 2024 Supervising Physician Co-Signing Physician Notes I personally examined the patient and verified all solorzano points of history and exam, discussed case, and agree with decision making with Dr Martinez doing a good bit better overall today. 1 vagal/pseudoseizure event about 5 hours before I saw her, but otherwise pain under better control today. Hesitant to wean back on pain medicines just yet given that yesterday was still a bit of a rough day. Vitals noted, in general she is awake and alert fatigued but no overt distress. Breathing unlabored no accessory muscle use good effort. Skin without rashes pallor or icterus. Neuro without focal deficits. Acute on chronic abdominal paincomplicated situation with adhesions, functional pain, visceral hyperalgesia, motility issues, and the overall baseline physiology complicated by POTS, +/- mast cell activationgiven that she had had multiple I did send a tryptase level that way immunology can compare it to what they sent as a baseline. continue IV fluids to mitigate POTS physiology (although she was not as tachycardic as she frequently is) , Continue pain con trol, Consider starting to dial back the CREELER tomorrow, continue G-tube to suction. Otherwise as above. Subjective Per nursing, pt had prolonged pseudoseizure over night last 2.5 minutes. Mom and pt report that pt had approximately 6 pseudoseizures yesterday due to increased discomfort with small bowel follow through test performed yesterday. This morning, pt rates her abdominal pain as a 6/10. She reports daily AVENDAÑO that is no worse than her usual. She denies nausea, retching, dysuria or SOB. Review of Systems Review of Systems: as per hpi Physical Exam Physical Exam: The patient is awake, alert and oriented 3, well developed and well nourished, normocephalic and atraumatic, lying in bed and in no acute distress. HEENT--PERRL, EOMI, moist mucous membranes Heart--normal S1 and S2. No murmurs, rubs or gallops. Lungs--CTAB, no respiratory distress, no accessory muscle use. Abdomen-- hypoactive bowel sounds, nondistended and soft. Extremities--no cyanosis or clubbing. No edema. Skin--normal skin turgor, normal color, no abnormal lymph nodes, no rash. Psychiatric--normal affect. Results & Data Results & Data Vital Signs (Past 12 Hours) Vital Signs Temp Pulse Pulse Resp BP Pulse Ox O2 Del Method 10/22/24 04:07 36.5 C 95 H 19 110/75 98 Nasal Cannula 10/22/24 01:21 94 H 10/21/24 23:55 10/21/24 23:31 36.6 C 108 H 18 109/71 100 Nasal Cannula 10/21/24 19:44 36.6 C 120 H 16 113/80 99 Nasal Cannula 10/21/24 19:00 O2 Flow Rate 10/22/24 04:07 1 10/22/24 01:21 10/21/24 23:55 1 10/21/24 23:31 1 10/21/24 19:44 1 10/21/24 19:00 1 Resident Activity Tracking Resident Involvement: Resident Care Provided Care Provided: Adult Hospital Medicine
[2024-10-22 07:36] LABS: Hematocrit (blood only) 33.1 % (37.0-47.0); Hemoglobin 10.4 g/dl (12.0-16.0); Mean Corpuscular Hemoglobin 29.6 pg (25.0-34.0); Mean Corpuscular Volume 94.3 fL (80.0-100.0); Platelet Count 234 K/uL (130-400); RDW Standard Deviation 53.5 fL (36.4-46.3); Red Blood Count 3.51 M/uL (4.20-5.40); White Blood Count 5.08 K/ul (4.8-10.8)
[2024-10-22 07:52] LABS: Anion Gap 3.0 (3-11); Blood Urea Nitrogen 24.0 mg/dl (6-23); Calcium 9.0 mg/dl (8.6-10.3); Carbon Dioxide 29.0 mmol/L (21-32); Chloride 107.0 mmol/L (98-107); Creatinine Clr Calc Pharmacy 142.7 ml/min; Glucose 288.0 mg/dl (70-99(Fasting)); Magnesium 2.1 mg/dl (1.7-2.4); Potassium 5.0 mmol/L (3.5-5.1); Sodium 139.0 mmol/L (136-145)
--- NOTE | 2024-10-22 16:53 | Billing Data ---
Date of Service October 22, 2024 Coding Level of Care Code 72753 SUB INP/OBS CARE MIN
--- NOTE | 2024-10-22 16:53 | Billing Data ---
Date of Service October 22, 2024 Coding Level of Care Code 66344 SUB INP/OBS CARE MIN
[2024-10-22] MEDS: CENTRAL TPN IV SCH (21:35)
[2024-10-22] MEDS: [UNRECOGNIZED DRUG - OTHER] IV SCH (21:35)
--- NOTE | 2024-10-23 06:58 | Hospitalist Progress Note ---
Date of Service October 23, 2024 Assessment & Plan (1) Abdominal pain, chronic, generalized: (2) Pain disorder: (3) History of seizures: Plan 34 yo female with a past medical history of gastroparesis with chronic abdominal pain s/p PEG and ostomy, hx SMA syndrome s/p multiple abdominal surgeries, chronic pain syndrome (at times requiring ketamine), pseudoseizures in response to pain, iron deficiency anemia, chronic migraines, secondary hyperparathyroidism, and endometriosis who presents on 10/12 due to uncontrolled abdominal pain Abdominal pain, acute on chronic - Ddx includes motility, adhesional, SMA obstruction - Patient with history of multiples (x3) abdominal surgery at [facility]. Last surgery performed on Jun [address] Green (transplant surgery). Next surgery schedule for December 15. Discussion with Dr. Green on 10/13 indicated no need for transfer at this time, while patient is hemodynamically stable w/ no signs of obstructions or infection. [facility] Medical line - [phone]. Tasia - her specific coordinator ([phone]) - Contacted [facility] on 10/21 to update on her condition and see if they think transfer is necessary/appropriate as pt having worsening pain/increasing analgesia need, as well as more G-tube and less ostomy output. Spoke with Dr. Green, who suggested completely open G-tube + adding suction. He also mentioned their team had success with pain control using 5-10ug ketamine / hr for 72h. - Will ask CM to pursue spinal cord stimulator (in the past, had good success with pain control on the SCS trial) - Pain management: - Resumed MANAGER REHAB to Dilaudid 0.50mg q10min prn - Continue Dilaudid 1 mg q2h prn, and 2mg qHS - Scheduled Ativan at 1mg IV q6h - Scheduled IV Tylenol - Continue fentanyl patch 50 mcg - discussed protocol for ketamine administration requiring transfer to ICU for monitoring. Pt wishes to hold off at this time and have pain managed on the PCU where she feels more comfortable - SBFT obtained due to persistent abdominal pain and retching at specific spot. Results as follows: "Contrast was injected into the PEG tube. The contrast progresses from the stomach to the duodenum. There is duodenal distention measuring up to 4 cm greatest diameter. There is apparent stricture at the distal duodenum and proximal jejunum at the midline, but the contrast progresses to the jejunum after mild delay. Contrast progresses to the right lower quadrant ostomy bag by 1 hour 20 minutes. Small bowel fold pattern is unremarkable. No other small bowel distention or stricture seen." Findings read as consistent with hx of SMA syndrome - Continue Zofran q 6hr prn - Maintenance IVF with Lactated Ringers 125 ml/hr PNES - Suspect increased in frequency due to uncontrolled pain & vasovagal response - No neuro deficit on exam - Continue current pain management - PCU for continues monitoring - Continue Ativan as above Severe protein-calorie malnutrition - Continue TPN - K+ also found to have increased from 3.8 on 10/21 to 5.0 on 10/22. Today K+ is 4.0. - Continue IVF as above - BMP with AM labs Visceral hyperalgesia - chronic pain management, supportive care, outpt surgery and pain management follow up POTS (postural orthostatic tachycardia syndrome) \\ Adrenal insufficiency - IV fluids, steroids (for adrenal insufficiency as well) - Continue home steroids, vital signs stable no need for stress dose at this time. Endometriosis - norethindrone, 0.35 mg, PO, qAM (patient's own oral contraceptive) during hospital stay FENGI - TPN / LR DVT prophylaxis - lovenox sq24 Dispo - Admit to PCU Admission and Anticipated Discharge Date Admission Date: October 12, 2024 Supervising Physician Co-Signing Physician Notes I personally examined the patient and verified all solorzano points of history and exam, discussed case, and agree with decision making with Dr Michelle gillespie doing a little better. only ?1 total pseudoseizure in the last day. Vitals noted, in general she is awake and alert fatigued but no overt distress. Breathing unlabored no accessory muscle use good effort. Skin without rashes pallor or icterus. Neuro without focal deficits. Acute on chronic abdominal paincomplicated situation with adhesions, functional pain, visceral hyperalgesia, motility issues, and the overall baseline physiology complicated by POTS, +/- mast cell activationgiven that she had had multiple I did send a tryptase level that way immunology can compare it to what they sent as a baseline - but with it being 4.7 doubt this is at all mast cell mediated. continue IV fluids to mitigate POTS physiology (although she was not as tachycardic as she frequently is), continue pain control, start to dial back the MANAGER REHAB (reduced from 0.75 per click [id number] to 0.5mg per click q10min), continue G-tube to suction. Otherwise as above. Subjective Per nursing, pt had prolonged pseudoseizure over night last 3-4 minutes. Mom and pt report that pt had approximately 2 pseudoseizures yesterday. Pt reports she feels she is "moving in the right direction". This morning, pt reports she is having abdominal pain and would like something for breakthrough. Her BP has been low this morning, however, she has not received her steroids to treat POTS. Pt agreeable to wait for pain meds until after receiving steroids. She denies CP, dizziness, retching, dysuria or SOB. Review of Systems Review of Systems: as per hpi Physical Exam Physical Exam: The patient is awake, alert and oriented 3, well developed and well nourished, normocephalic and atraumatic, sitting up in bed and appears mildly distracted by abdominal discomfort. HEENT--PERRL, EOMI, moist mucous membranes Heart--normal S1 and S2. No murmurs, rubs or gallops. Lungs--CTAB, no respiratory distress, no accessory muscle use. Abdomen-- Normoactive bowel sounds, nondistended and soft. Extremities--no cyanosis or clubbing. No edema. Skin--normal skin turgor, normal color, no abnormal lymph nodes, no rash. Psychiatric--normal affect. Results & Data Results & Data Vital Signs (Past 12 Hours) Vital Signs Temp Pulse Resp BP BP Pulse Ox O2 Del Method 10/23/24 02:37 36.5 C 82 22 103/70 98 Nasal Cannula 10/22/24 23:19 36.7 C 88 12 110/74 97 Room Air 10/22/24 19:15 36.6 C 94 H 16 107/71 93 Room Air O2 Flow Rate 10/23/24 02:37 1 10/22/24 23:19 10/22/24 19:15 Resident Activity Tracking Resident Involvement: Resident Care Provided Care Provided: Adult Hospital Medicine
[2024-10-23 08:13] LABS: Hematocrit (blood only) 32.5 % (37.0-47.0); Hemoglobin 10.3 g/dl (12.0-16.0); Mean Corpuscular Hemoglobin 29.9 pg (25.0-34.0); Mean Corpuscular Volume 94.5 fL (80.0-100.0); Platelet Count 247 K/uL (130-400); RDW Standard Deviation 53.8 fL (36.4-46.3); Red Blood Count 3.44 M/uL (4.20-5.40); White Blood Count 5.13 K/ul (4.8-10.8)
[2024-10-23 08:39] LABS: Anion Gap 5.0 (3-11); Blood Urea Nitrogen 24.0 mg/dl (6-23); Calcium 8.6 mg/dl (8.6-10.3); Carbon Dioxide 29.0 mmol/L (21-32); Chloride 107.0 mmol/L (98-107); Creatinine Clr Calc Pharmacy 145.4 ml/min; Glucose 98.0 mg/dl (70-99(Fasting)); Magnesium 1.9 mg/dl (1.7-2.4); Potassium 4.0 mmol/L (3.5-5.1); Sodium 141.0 mmol/L (136-145)
[2024-10-23] MEDS: LACTATED RINGER'S 500 ML IV ONE (09:21)
--- NOTE | 2024-10-23 16:52 | Billing Data ---
Date of Service October 23, 2024 Coding Level of Care Code 13287 SUB INP/OBS CARE MIN
[2024-10-23] MEDS: [UNRECOGNIZED DRUG - OTHER] IV SCH (21:19)
[2024-10-23] MEDS: CENTRAL TPN IV SCH (21:19)
[2024-10-23] MEDS ORDERED: Nursing to Pharmacy Communication SCH (22:00)
--- NOTE | 2024-10-24 06:53 | Hospitalist Progress Note ---
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 Requires continued admission Abdominal pain, acute on chronic - Ddx includes motility, adhesional, SMA obstruction - Patient with history of multiples (x3) abdominal surgery at [facility]. Last surgery performed on Jun [address] Green (transplant surgery). Next surgery schedule for December 15. Discussion with Dr. Green on 10/13 indicated no need for transfer at this time, while patient is hemodynamically stable w/ no signs of obstructions or infection. [facility] Medical line - [phone]. Tasia - her specific coordinator ([phone]) -[facility] was contacted on 10/21 to update on her condition and see if they think transfer is necessary/appropriate as pt having worsening pain/increasing analgesia need, as well as more G-tube and less ostomy output. Spoke with Dr. Green, who suggested completely open G-tube+ adding suction. He also mentioned their team had success with pain control using 5-10ug ketamine / hr for 72h. - Will ask CM to pursue spinal cord stimulator (in the past, had good success with pain control on the SCS trial) - Pain management: - SMELTER OPERATOR Dilaudid 0.50mg q10min prn - Continue Dilaudid 1 mg q2h prn, and 2mg qHS - Scheduled Ativan at 1mg IV q6h - Scheduled IV Tylenol - Continue fentanyl patch 50 mcg - discussed protocol for ketamine administration requiring transfer to ICU for monitoring. Pt wishes to hold off at this time and have pain managed on the PCU where she feels more comfortable - SBFT obtained due to persistent abdominal pain and retching at specific spot. Results as follows: "There is duodenal distention measuring up to 4 cm greatest diameter. There is apparent stricture at the distal duodenum and proximal jejunum at the midline, but the contrast progresses to the jejunum after mild delay. Contrast progresses to the right lower quadrant ostomy bag by 1 hour 20 minutes. Small bowel fold pattern is unremarkable. No other small bowel distention or stricture seen." - Findings read as consistent with hx of SMA syndrome - Continue Zofran q 6hr prn - Maintenance IVF with Lactated Ringers 125 ml/hr PNES - Suspect increased in frequency due to uncontrolled pain & vasovagal response - No neuro deficit on exam - Continue current pain management - PCU for continues monitoring - Continue Ativan as above Severe protein-calorie malnutrition - Continue TPN - K+ also found to have increased from 3.8 on 10/21 to 5.0 on 10/22. Today K+ is 4.0. - Continue IVF as above - BMP with AM labs Visceral hyperalgesia - chronic pain management, supportive care, outpt surgery and pain management follow up POTS (postural orthostatic tachycardia syndrome) / Adrenal insufficiency - IV fluids, steroids (for adrenal insufficiency as well) - Continue home steroids, vital signs stable no need for stress dose at this time. Endometriosis - norethindrone, 0.35 mg, PO, qAM (patient's own oral contraceptive) during hospital stay FENGI - TPN / LR DVT prophylaxis - lovenox sq24 Dispo - Admit to PCU Admission and Anticipated Discharge Date Admission Date: October 12, 2024 Supervising Physician Co-Signing Physician Notes ATTESTATION I also saw the patient and confirmed solorzano portions of the history and exam. I agree with the impression and plan in the resident documentation, and as summarized below. Patient seen just after lunch. Mother at bedside. Overall doing better compared to admission (I saw her on admission); similar to previous admissions, will take a few steps forward, then some back, as she recovers - so improved, but certainly not a straight line. SMELTER OPERATOR decreased yesterday and had two [id number] events last evening related to bouts of pain. Feeling better this morning. Acute on chronic abdominal pain Given SMELTER OPERATOR adjustment yesterday and flare last evening, will continue the same for remainder of today Consider further reduction tomorrow Additional per resident documentation Subjective Per nursing, pt had two psychogenic non-epileptic seizures yesterday 10/23 evening likely secondary to pain, otherwise no acute events overnight. Continues to report she feels she is "moving in the right direction". This morning, pt reports she is having abdominal pain and would like something for breakthrough. SMELTER OPERATOR pump was decreased from 0.75 to 0.5 q10m, not using it every chance possible. Continues to deny CP, dizziness, retching, dysuria or SOB. Review of Systems Review of Systems: as per hpi Physical Exam Physical Exam: Gen: alert and oriented 3, well developed and well nourished, normocephalic and atraumatic, sitting up in bed and appears mildly distracted by abdominal discomfort. HEENT: PERRL, EOMI, moist mucous membranes CV: +s1/s2. No murmurs, rubs or gallops. Resp: CTAB, no respiratory distress, no accessory muscle use. GI/Abd: Normoactive bowel sounds, tender to palpation of all abdominal quadrants, non-tense and non-distended Extremities: no cyanosis or clubbing. No edema. Skin: normal skin turgor, normal color, no rashes observed Psychiatric: mood-affect congruence Results & Data Results & Data Vital Signs (Past 12 Hours) Vital Signs Temp Pulse Pulse Resp BP Pulse Ox O2 Del Method 10/24/24 02:54 36.4 C L 85 18 101/70 98 Room Air 10/23/24 23:20 36.8 C 93 H 16 112/79 98 Room Air 10/23/24 22:47 64 10/23/24 20:50 Nasal Cannula 10/23/24 19:32 36.5 C 91 H 16 99/68 L 100 Nasal Cannula O2 Flow Rate 10/24/24 02:54 10/23/24 23:20 10/23/24 22:47 10/23/24 20:50 2 10/23/24 19:32 3 Resident Activity Tracking Resident Involvement: Resident Care Provided Care Provided: Adult Hospital Medicine
[2024-10-24 07:34] LABS: Hematocrit (blood only) 31.4 % (37.0-47.0); Hemoglobin 10.3 g/dl (12.0-16.0); Mean Corpuscular Hemoglobin 30.5 pg (25.0-34.0); Mean Corpuscular Volume 92.9 fL (80.0-100.0); Platelet Count 252 K/uL (130-400); RDW Standard Deviation 52.0 fL (36.4-46.3); Red Blood Count 3.38 M/uL (4.20-5.40); White Blood Count 5.59 K/ul (4.8-10.8)
[2024-10-24 07:57] LABS: Anion Gap 4.0 (3-11); Blood Urea Nitrogen 24.0 mg/dl (6-23); Calcium 8.6 mg/dl (8.6-10.3); Carbon Dioxide 31.0 mmol/L (21-32); Chloride 106.0 mmol/L (98-107); Creatinine Clr Calc Pharmacy 135.0 ml/min; Glucose 83.0 mg/dl (70-99(Fasting)); Magnesium 2.0 mg/dl (1.7-2.4); Potassium 4.0 mmol/L (3.5-5.1); Sodium 141.0 mmol/L (136-145)
[2024-10-24] MEDS: ESTRADIOL 0.025 MG/24 HR TD SCH (18:10)
[2024-10-24] MEDS: [UNRECOGNIZED DRUG - OTHER] IV SCH (21:06)
[2024-10-24] MEDS: CENTRAL TPN IV SCH (21:06)
--- NOTE | 2024-10-25 06:55 | Hospitalist Progress Note ---
Date of Service October 25, 2024 Assessment & Plan (1) Abdominal pain, chronic, generalized: (2) Pain disorder: (3) History of seizures: Plan 34 yo female with a past medical history of gastroparesis with chronic abdominal pain s/p PEG and ostomy, hx SMA syndrome s/p multiple abdominal surgeries, chronic pain syndrome (at times requiring ketamine), pseudoseizures 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 Requires continued admission Abdominal pain, acute on chronic - Ddx includes motility, adhesional, SMA obstruction - Patient with history of multiples (x3) abdominal surgery at [facility]. Last surgery performed on Jun [address] Green (transplant surgery). Next surgery schedule for December 15. Discussion with Dr. Green on 10/13 indicated no need for transfer at this time, while patient is hemodynamically stable w/ no signs of obstructions or infection. [facility] Medical line - [phone]. Tasia - her specific coordinator ([phone]) -[facility] was contacted on 10/21 to update on her condition and see if they think transfer is necessary/appropriate as pt having worsening pain/increasing analgesia need, as well as more G-tube and less ostomy output. Spoke with Dr. Green, who suggested completely open G-tube+ adding suction. He also mentioned their team had success with pain control using 5-10ug ketamine / hr for 72h. - Will ask CM to pursue spinal cord stimulator (in the past, had good success with pain control on the SCS trial) - Pain management: - LONG WALL MINING MACHINE HELPER Dilaudid 0.50mg q10min prn - Continue Dilaudid 1 mg q2h prn, and 2mg qHS; added Dilaudid 0.5mg q2h prn to alternate with 1mg q2 as needed for breakthrough pain - Ativan 1mg IV q6h changed to PRN for anxiety and nausea - Scheduled IV Tylenol - Continue fentanyl patch 50 mcg - discussed protocol for ketamine administration requiring transfer to ICU for monitoring. Pt wishes to hold off at this time and have pain managed on the PCU where she feels more comfortable - SBFT obtained due to persistent abdominal pain and retching at specific spot. Results as follows: "There is duodenal distention measuring up to 4 cm greatest diameter. There is apparent stricture at the distal duodenum and proximal jejunum at the midline, but the contrast progresses to the jejunum after mild delay. Contrast progresses to the right lower quadrant ostomy bag by 1 hour 20 minutes. Small bowel fold pattern is unremarkable. No other small bowel distention or stricture seen." - Findings read as consistent with hx of SMA syndrome - Continue Zofran q 6hr prn - Maintenance IVF with Lactated Ringers 100 ml/hr during day while TPN is not infusing PNES - Suspect increased in frequency due to uncontrolled pain & vasovagal response - No neuro deficit on exam, no postictal state observed after episode - Continue pain management as above - PCU for continues monitoring - Continue Ativan as above Severe protein-calorie malnutrition - Continue TPN - K+ also found to have increased from 3.8 on 10/21 to 5.0 on 10/22. Today K+ is 3.6. - Continue IVF as above - BMP with AM labs Visceral hyperalgesia - chronic pain management, supportive care, outpt surgery and pain management follow up POTS (postural orthostatic tachycardia syndrome) / Adrenal insufficiency - IV fluids, steroids (for adrenal insufficiency as well) - Continue home steroids, vital signs stable no need for stress dose at this time. Endometriosis - norethindrone, 0.35 mg, PO, qAM (patient's own oral contraceptive) during hospital stay FENGI - TPN / LR DVT prophylaxis - lovenox sq24 Dispo - Admit to PCU Admission and Anticipated Discharge Date Admission Date: October 12, 2024 Supervising Physician Co-Signing Physician Notes ATTESTATION I also saw the patient and confirmed solorzano portions of the history and exam. I agree with the impression and plan in the resident documentation, and as summarized below. Increased pain last evening with episodes. Some anticipation of increased pain later today with ostomy change. Feels OK at present. Acute on chronic abdominal pain Discussed decreasing LONG WALL MINING MACHINE HELPER dose or extending interval, but will wait until after ostomy change later today Appreciate pharmacy assistance with TPN Additional per resident documentation Subjective Per nursing, pt had multiple psychogenic non-epileptic seizure 10/24 evening likely secondary to pain, otherwise no acute events overnight. Endorses being in more pain than day prior, but otherwise denies any concerning symptoms. Changed ostomy bag in afternoon, resulted in more pain and onset of PNES episode. Requesting additional medication for breakthrough pain. Continues to deny CP, dizziness, retching, dysuria or SOB. Review of Systems Review of Systems: as per hpi Physical Exam Physical Exam: Gen: alert and oriented 3, well developed and well nourished, normocephalic and atraumatic, sitting up in bed and appears mildly distracted by abdominal discomfort. HEENT: PERRL, EOMI, moist mucous membranes CV: +s1/s2. No murmurs, rubs or gallops. Resp: CTAB, no respiratory distress, no accessory muscle use. GI/Abd: Normoactive bowel sounds, tender to palpation of all abdominal quadrants, non-tense and non-distended, ostomy bag in place, no significant swelling/erythema/warmth observed Extremities: no cyanosis or clubbing. No edema. Skin: normal skin turgor, normal color, no rashes observed Psychiatric: mood-affect congruence Results & Data Results & Data Vital Signs (Past 12 Hours) Vital Signs Temp Pulse Pulse Resp BP Pulse Ox O2 Del Method 10/25/24 02:56 36.5 C 66 19 90/59 L 97 Room Air 10/24/24 23:07 Nasal Cannula 10/24/24 22:53 36.5 C 79 16 114/80 98 Nasal Cannula 10/24/24 22:26 86 10/24/24 19:28 36.5 C 87 16 133/80 96 Room Air O2 Flow Rate 10/25/24 02:56 10/24/24 23:07 1 10/24/24 22:53 1 10/24/24 22:26 10/24/24 19:28 Resident Activity Tracking Resident Involvement: Resident Care Provided Care Provided: Adult Hospital Medicine
[2024-10-25 07:06] LABS: Hematocrit (blood only) 30.5 % (37.0-47.0); Hemoglobin 9.9 g/dl (12.0-16.0); Mean Corpuscular Hemoglobin 30.1 pg (25.0-34.0); Mean Corpuscular Volume 92.7 fL (80.0-100.0); Platelet Count 231 K/uL (130-400); RDW Standard Deviation 51.8 fL (36.4-46.3); Red Blood Count 3.29 M/uL (4.20-5.40); White Blood Count 4.72 K/ul (4.8-10.8)
[2024-10-25 07:25] LABS: Anion Gap 3.0 (3-11); Blood Urea Nitrogen 22.0 mg/dl (6-23); Calcium 8.6 mg/dl (8.6-10.3); Carbon Dioxide 31.0 mmol/L (21-32); Chloride 107.0 mmol/L (98-107); Creatinine Clr Calc Pharmacy 154.3 ml/min; Glucose 104.0 mg/dl (70-99(Fasting)); Magnesium 1.9 mg/dl (1.7-2.4); Potassium 3.6 mmol/L (3.5-5.1); Sodium 141.0 mmol/L (136-145)
--- NOTE | 2024-10-25 10:17 | Pharmacy Report ---
Pharmacy PN Follow-up Note - Date of Service October 25, 2024 - Subjective Patient is currently on day #[] of [PPN][TPN] for [Indication]. - Objective Height & Weight (Last Documented) Height 5 ft 6 in Weight 68.6 kg Diet Order(s) 10/12/24 12:33 NPO Intake & Ouput (24hrs) 10/24/24 10/25/24 10/26/24 06:59 06:59 06:59 Intake Total 1506.667 / 8550.988 3595.747 / 2072.747 Output Total 2850 / 2850 100 / 100 Balance -1343.333 / -413.700 3338.747 / 7 Selected Laboratory Results 10/25/24 06:22 Sodium 141 Potassium 3.6 Chloride 107 Carbon Dioxide 31 Anion Gap 3 BUN 22 Creatinine 0.49 L BUN/Creatinine Ratio 44.9 H Glucose 104 H Calcium 8.6 Magnesium 1.9 - Assessment & Plan Assessment: 10/25: * Labs continuing to be rather stable * Increase potassium content today as labs trending down and TPN prior to admission contained more * Monitor phosphate levels, continue with small amount today * Additional magnesium added as labs trending down and TPN prior to admission contained more * Pilar requested the lipids were held yesterday again, will continue with MWF lipids as tolerated, continue goal AA and dextrose. 10/21: * Labs largely stable, add back in small amount of phosphate, no other electrolyte adjustments to TPN today * Pilar still reporting nausea, small bowel follow through today. Requests lipids are held again. Typically MWF lipids. 10/18: * ANSELMO is a 34 year old female well known to pharmacy parenteral nutrition consult service (see medical/surgical history above). * Patient reports increased nausea and refused lipids last evening. Will hold again today and reassess tomorrow. * Electrolytes have been largely stable and WNL * Will adjust back to chloride>acetate * Monitor phosphate and remove/reduce if continued up-trend Plan: * For Day #8 of TPN administration, the following will be ordered: * Macronutrients: * Amino Acids: 96 grams/day * Dextrose: 168 grams/day * Hold lipids per patient request * Micronutrients: * Sodium chloride: 50 mEq/day * Potassium phosphate: 3 mMol/day * Potassium chloride: 40 mEq/day * Potassium acetate: 40 mEq/day * Magnesium sulfate: 12.18 mEq/day * Calcium gluconate: 18.6 mEq/day * Multivitamins: held due to allergy * Trace elements: 1 mL/day * Thiamine: 100 mg/day * Total volume of 1306 mL will be infused over 18 hours and will provide 955 kcal/day * Labs will be ordered per PN protocol. * Pharmacy will follow and adjust PN orders on a daily basis. Thank you!
[2024-10-25] MEDS: HYDROmorphone INJ 0.5 MG/0.5 ML SYR IV PRN (14:50)
[2024-10-25] MEDS: STOP ORDER: TPN SCH (15:05)
[2024-10-25] MEDS: LACTATED RINGER'S 1,000 ML IV SCH (17:03)
[2024-10-25] MEDS: CENTRAL TPN IV SCH (21:39)
[2024-10-25] MEDS: [UNRECOGNIZED DRUG - OTHER] IV SCH (21:39)
--- NOTE | 2024-10-26 08:18 | Hospitalist Progress Note ---
Date of Service October 26, 2024 Assessment & Plan (1) Abdominal pain, chronic, generalized: (2) Pain disorder: (3) History of seizures: Plan 34 yo female with a past medical history of gastroparesis with chronic abdominal pain s/p PEG and ostomy, hx SMA syndrome s/p multiple abdominal surgeries, chronic pain syndrome (at times requiring ketamine), pseudoseizures 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 Requires continued admission Abdominal pain, acute on chronic - Ddx includes motility, adhesional, SMA obstruction - Patient with history of multiples (x3) abdominal surgery at [facility]. Last surgery performed on Jun [address] Green (transplant surgery). Next surgery schedule for December 15. Discussion with Dr. Green on 10/13 indicated no need for transfer at this time, while patient is hemodynamically stable w/ no signs of obstructions or infection. [facility] Medical line - [phone]. Tasia - her specific coordinator ([phone]) -[facility] was contacted on 10/21 to update on her condition and see if they think transfer is necessary/appropriate as pt having worsening pain/increasing analgesia need, as well as more G-tube and less ostomy output. Spoke with Dr. Green, who suggested completely open G-tube+ adding suction. He also mentioned their team had success with pain control using 5-10ug ketamine / hr for 72h. - Will ask CM to pursue spinal cord stimulator (in the past, had good success with pain control on the SCS trial) - Pain management: - FINGERNAIL FORMER Dilaudid 0.50mg q10min prn - Continue Dilaudid 1 mg q2h prn, and 2mg qHS; added Dilaudid 0.5mg q2h prn to alternate with 1mg q2 as needed for breakthrough pain, consider taking off additional 0.5mg q2 tomorrow 10/27 - Ativan 1mg IV q6h changed to PRN for anxiety and nausea - Scheduled IV Tylenol - Continue fentanyl patch 50 mcg - discussed protocol for ketamine administration requiring transfer to ICU for monitoring. Pt wishes to hold off at this time and have pain managed on the PCU where she feels more comfortable - SBFT obtained due to persistent abdominal pain and retching at specific spot. Results as follows: "There is duodenal distention measuring up to 4 cm greatest diameter. There is apparent stricture at the distal duodenum and proximal jejunum at the midline, but the contrast progresses to the jejunum after mild delay. Contrast progresses to the right lower quadrant ostomy bag by 1 hour 20 minutes. Small bowel fold pattern is unremarkable. No other small bowel distention or stricture seen." - Findings read as consistent with hx of SMA syndrome - Continue Zofran q 6hr prn - Maintenance IVF with Lactated Ringers 100 ml/hr during day while TPN is not infusing - Allow trials of home ice pops - family can bring from home as she has done previously PNES - Suspect increased in frequency due to uncontrolled pain & vasovagal response - No neuro deficit on exam, no postictal state observed after episode - Continue pain management as above - PCU for continues monitoring - Continue Ativan as above Severe protein-calorie malnutrition - Continue TPN - K+ also found to have increased from 3.8 on 10/21 to 5.0 on 10/22. Today K+ is 4.3 - Continue IVF as above - BMP with AM labs Visceral hyperalgesia - chronic pain management, supportive care, outpt surgery and pain management follow up POTS (postural orthostatic tachycardia syndrome) / Adrenal insufficiency - IV fluids, steroids (for adrenal insufficiency as well) - Continue home steroids, vital signs stable no need for stress dose at this time. Endometriosis - norethindrone, 0.35 mg, PO, qAM (patient's own oral contraceptive) during hospital stay FENGI - TPN / LR DVT prophylaxis - lovenox sq24 Dispo - Admit to PCU Admission and Anticipated Discharge Date Admission Date: October 12, 2024 Supervising Physician Co-Signing Physician Notes ATTESTATION I also saw the patient and confirmed solorzano portions of the history and exam. I agree with the impression and plan in the resident documentation, and as summarized below. Feeling OK now, thinking she wants to trial a popsicle, which is usually the first thing she will try as she recovers. She had some discomfort at the ostomy site. VSS Alert and oriented. NAD CV regular, slightly tachycardic this afternoon Lungs with non labored respirations ABD ostomy site with 2-3 mm area of exposed tissue at left corner, looks healthy, no discharge appreciated. Acute on chronic abdominal pain Hint of improvement; this is similar to her previous admissions in terms of pace of improvement No changes to FINGERNAIL FORMER today; best time would be mid morning tomorrow which would give the day team ability to adjust if needed Probably keep interval but decrease dose She will try to extend duration herself between now and then, although evening historically can be tough for her Appreciate pharmacy assistance with TPN Additional per resident documentation Subjective Overnight, pt has 3 bouts of PNEs, all of which resolved within 3min. Additionally was having anxiety, given Ativan 1mg overnight, thereafter no acute overnight events. Endorses her pain is still present but comes in waves, not necessarily worse than day prior. Would like to try eating icepops - cannot have the ones here, has healthier and more natural / fewer ingredient ones at home that she enjoys. States her ostomy tube site appears a bit red and has some granulation tissue. 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 Endorses at that time she had severe abdominal pain and it was discovered on abdominal xray, after which they replaced the displaced tube. Notes the pain isn't as bad now as it was then, but states she will let us know if it worsens. Continues to deny CP, dizziness, retching, dysuria or SOB. Review of Systems Review of Systems: as per hpi Physical Exam Physical Exam: Gen: alert and oriented 3, well developed and well nourished, normocephalic and atraumatic, sitting up in bed and appears mildly distracted by abdominal discomfort. HEENT: PERRL, EOMI, moist mucous membranes CV: +s1/s2. No murmurs, rubs or gallops. Resp: CTAB, no respiratory distress, no accessory muscle use. GI/Abd: Normoactive bowel sounds, tender to palpation of all abdominal quadrants, non-tense and non-distended, ostomy bag in place, mild erythema immediately around site of ostomy tube but no significant swelling/warmth or discharge observed Extremities: no cyanosis or clubbing. No edema Skin: normal skin turgor, normal color, no rashes observed Psychiatric: mood-affect congruence Results & Data Results & Data Vital Signs (Past 12 Hours) Vital Signs Temp Pulse Pulse Resp BP BP Pulse Ox 10/26/24 07:40 36.7 C 63 17 75/47 L 98 10/26/24 02:32 36.5 C 87 16 95/67 L 97 10/25/24 23:01 36.7 C 90 18 109/73 99 O2 Del Method 10/26/24 07:40 Nasal Cannula 10/26/24 02:32 Nasal Cannula 10/25/24 23:01 Nasal Cannula Resident Activity Tracking Resident Involvement: Resident Care Provided Care Provided: Adult Hospital Medicine
[2024-10-26 08:57] LABS: Hematocrit (blood only) 31.9 % (37.0-47.0); Hemoglobin 10.2 g/dl (12.0-16.0); Mean Corpuscular Hemoglobin 29.7 pg (25.0-34.0); Mean Corpuscular Volume 93.0 fL (80.0-100.0); Platelet Count 251 K/uL (130-400); RDW Standard Deviation 53.3 fL (36.4-46.3); Red Blood Count 3.43 M/uL (4.20-5.40); White Blood Count 4.47 K/ul (4.8-10.8)
[2024-10-26 09:07] LABS: Anion Gap 4.0 (3-11); Calcium 8.9 mg/dl (8.6-10.3); Carbon Dioxide 31.0 mmol/L (21-32); Chloride 105.0 mmol/L (98-107); Magnesium 2.1 mg/dl (1.7-2.4); Potassium 4.3 mmol/L (3.5-5.1); Sodium 140.0 mmol/L (136-145)
[2024-10-26 09:13] LABS: Blood Urea Nitrogen 24.0 mg/dl (6-23); Creatinine Clr Calc Pharmacy 140.0 ml/min; Glucose 90.0 mg/dl (70-99(Fasting))
[2024-10-26] MEDS: HYDROmorphone INJ 1 MG/ML SYRINGE IV PRN (19:55)
[2024-10-26] MEDS: [UNRECOGNIZED DRUG - OTHER] IV SCH (21:55)
[2024-10-26] MEDS: CENTRAL TPN IV SCH (21:55)
[2024-10-27 06:55] LABS: Hematocrit (blood only) 31.3 % (37.0-47.0); Hemoglobin 10.2 g/dl (12.0-16.0); Mean Corpuscular Hemoglobin 29.8 pg (25.0-34.0); Mean Corpuscular Volume 91.5 fL (80.0-100.0); Platelet Count 249 K/uL (130-400); RDW Standard Deviation 50.8 fL (36.4-46.3); Red Blood Count 3.42 M/uL (4.20-5.40); White Blood Count 5.29 K/ul (4.8-10.8)
--- NOTE | 2024-10-27 06:55 | Hospitalist Progress Note ---
Date of Service October 27, 2024 Assessment & Plan (1) Abdominal pain, chronic, generalized: (2) Pain disorder: (3) History of seizures: Plan 34 yo female with a past medical history of gastroparesis with chronic abdominal pain s/p PEG and ostomy, hx SMA syndrome s/p multiple abdominal surgeries, chronic pain syndrome (at times requiring ketamine), pseudoseizures 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 Requires continued admission for pain management and optimization of daily pain regimen. Abdominal pain, acute on chronic - Ddx includes motility, adhesional, SMA obstruction - Patient with history of multiples (x3) abdominal surgery at [facility]. Last surgery performed on Jun [address] Green (transplant surgery). Next surgery schedule for December 15. Discussion with Dr. Green on 10/13 indicated no need for transfer at this time, while patient is hemodynamically stable w/ no signs of obstructions or infection. [facility] Medical line - [phone]. Tasia - her specific coordinator ([phone]) -[facility] was contacted on 10/21 to update on her condition and see if they think transfer is necessary/appropriate as pt having worsening pain/increasing analgesia need, as well as more G-tube and less ostomy output. Spoke with Dr. Green, who suggested completely open G-tube+ adding suction. He also mentioned their team had success with pain control using 5-10ug ketamine / hr for 72h. - Will ask CM to pursue spinal cord stimulator (in the past, had good success with pain control on the SCS trial) - Pain management: - MICA INSPECTOR Dilaudid 0.50mg q10min prn - Continue Dilaudid 1 mg q2h prn, and 2mg qHS; added Dilaudid 0.5mg q2h prn to alternate with 1mg q2 as needed for breakthrough pain, consider taking off additional 0.5mg q2 tomorrow 10/27 - Ativan 1mg IV q6h changed to PRN for anxiety and nausea - Scheduled IV Tylenol - Continue fentanyl patch 50 mcg - discussed protocol for ketamine administration requiring transfer to ICU for monitoring. Pt wishes to hold off at this time and have pain managed on the PCU where she feels more comfortable - SBFT obtained due to persistent abdominal pain and retching at specific spot. Results as follows: "There is duodenal distention measuring up to 4 cm greatest diameter. There is apparent stricture at the distal duodenum and proximal jejunum at the midline, but the contrast progresses to the jejunum after mild delay. Contrast progresses to the right lower quadrant ostomy bag by 1 hour 20 minutes. Small bowel fold pattern is unremarkable. No other small bowel distention or stricture seen." - Findings read as consistent with hx of SMA syndrome - Continue Zofran q 6hr prn - Maintenance IVF with Lactated Ringers 100 ml/hr during day while TPN is not infusing - Continue eating Jonnypop ice pops from home as tolerated PNES - Suspect increased in frequency due to uncontrolled pain & vasovagal response - No neuro deficit on exam, no postictal state observed after episode - Continue pain management as above - PCU for continues monitoring - Continue Ativan prn as above Severe protein-calorie malnutrition - Continue TPN - K+ also found to have increased from 3.8 on 10/21 to 5.0 on 10/22. Today K+ is 4.1 - Continue IVF as above - BMP with AM labs Visceral hyperalgesia - chronic pain management as above, supportive care, outpt surgery and pain management follow up POTS (postural orthostatic tachycardia syndrome) / Adrenal insufficiency - IV fluids, steroids (for adrenal insufficiency as well) Ordered IV hydrocortisone 1:[address] PO 15mg in AM and 10mg dose at 14:00 due to concern that pills have been found during ostomy bag suctioning - consider continue home steroids once BP has normalized vs wait until discharge Endometriosis - norethindrone, 0.35 mg, PO, qAM (patient's own oral contraceptive) during hospital stay FENGI - TPN / LR DVT prophylaxis - lovenox sq24 Dispo - Admit to PCU Admission and Anticipated Discharge Date Admission Date: October 12, 2024 Supervising Physician Co-Signing Physician Notes ATTESTATION I also saw the patient and confirmed solorzano portions of the history and exam. I agree with the impression and plan in the resident documentation, and as summarized below. Patient seen mid morning; mom at bedside. Doing OK at present. Popsicles without difficulty. VSS Alert and oriented. CV regular Lungs with non labored respirations ABD ostomy site with 2-3 mm area of exposed tissue at left corner, looks healthy, no discharge appreciated. Acute on chronic abdominal pain Hint of improvement; this is similar to her previous admissions in terms of pace of improvement Decrease to 0.4 mg q 10 mins, keep all else the same. She will try to extend interval demand herself Some question if she is absorbing PO medications (appearing in suction canister even after clamping after administration) Will change hydrocortisone form PO to IV Appreciate pharmacy assistance with TPN Additional per resident documentation Subjective Pilar was seen and evaluated at bedside this AM, had just finished a [employer] ice pop ([employer]) with good tolerance. Overnight denies any significant concerns other than the prn Dilaudid 1mg q2 auto-discontinued, but this was added back on. Willing to go slightly down on her MICA INSPECTOR dosing from 0.5 -> 0.4, still q10min. Concerned about pills ending up in ostomy bag when it gets suctioned - may not be absorbing sufficient amount of her oral hydrocortisone, BP has been on the softer side. Continues to deny CP, dizziness, retching, dysuria or SOB. Review of Systems Review of Systems: as per hpi Physical Exam Physical Exam: Gen: alert and oriented 3, well developed and well nourished, normocephalic and atraumatic, sitting up in bed, appearing well HEENT: PERRL, EOMI, moist mucous membranes CV: +s1/s2. No murmurs, rubs or gallops. Resp: CTAB, no respiratory distress, no accessory muscle use. GI/Abd: Normoactive bowel sounds, tender to palpation of all abdominal quadrants, non-tense and non-distended, ostomy bag in place, mild erythema immediately around site of ostomy tube but no significant swelling/warmth or discharge observed Extremities: no cyanosis or clubbing. No edema Skin: normal skin turgor, normal color, no rashes observed Psychiatric: mood-affect congruence Results & Data Results & Data Vital Signs (Past 12 Hours) Vital Signs Temp Pulse Pulse Resp BP Pulse Ox O2 Del Method 10/26/24 22:36 36.6 C 72 18 100/69 96 Nasal Cannula 10/26/24 22:01 71 10/26/24 21:00 Nasal Cannula 10/26/24 19:22 36.6 C 95 H 18 104/70 99 Nasal Cannula O2 Flow Rate 10/26/24 22:36 10/26/24 22:01 10/26/24 21:00 2 10/26/24 19:22 Resident Activity Tracking Resident Involvement: Resident Care Provided Care Provided: Adult Hospital Medicine
[2024-10-27 07:18] LABS: Anion Gap 5.0 (3-11); Blood Urea Nitrogen 22.0 mg/dl (6-23); Calcium 8.7 mg/dl (8.6-10.3); Carbon Dioxide 30.0 mmol/L (21-32); Chloride 107.0 mmol/L (98-107); Creatinine Clr Calc Pharmacy 145.4 ml/min; Glucose 83.0 mg/dl (70-99(Fasting)); Magnesium 2.0 mg/dl (1.7-2.4); Potassium 4.1 mmol/L (3.5-5.1); Sodium 142.0 mmol/L (136-145)
--- NOTE | 2024-10-27 15:14 | Pharmacy Report ---
Pharmacy PN Follow-up Note - Date of Service October 27, 2024 - Subjective Patient is currently on day #14 of TPN for chronic TPN with complicated GI history. - Objective Height & Weight (Last Documented) Height 5 ft 6 in Weight 68.4 kg Diet Order(s) 10/12/24 12:33 NPO Intake & Ouput (24hrs) 10/26/24 10/27/24 10/28/24 06:59 06:59 06:59 Intake Total 2070.495 / 2070.495 2559.01 / 2559.01 361.25 / 361.25 Output Total 2875 / 2875 1650 / 1650 550 / 550 Balance -804.505 / -804.505 909.01 / 909.01 -188.75 / -188.75 Selected Laboratory Results 10/27/24 06:42 Sodium 142 Potassium 4.1 Chloride 107 Carbon Dioxide 30 Anion Gap 5 BUN 22 Creatinine 0.52 L BUN/Creatinine Ratio 42.3 H Glucose 83 Calcium 8.7 Phosphorus 4.5 Magnesium 2.0 - Assessment & Plan Assessment: 10/27: * Labs mostly stable, no changes to TPN electrolytes in 48 hours, continue cyclic 18 hour TPN * Lipids planned for MWF, Pilar still requesting lipids to be held due to nausea from administration 10/25: * Labs continuing to be rather stable * Increase potassium content today as labs trending down and TPN prior to admission contained more * Monitor phosphate levels, continue with small amount today * Additional magnesium added as labs trending down and TPN prior to admission contained more * Pilar requested the lipids were held yesterday again, will continue with MWF lipids as tolerated, continue goal AA and dextrose. 10/21: * Labs largely stable, add back in small amount of phosphate, no other electrolyte adjustments to TPN today * Pilar still reporting nausea, small bowel follow through today. Requests lipids are held again. Typically MWF lipids. 10/18: * ANSELMO is a 34 year old female well known to pharmacy parenteral nutrition consult service (see medical/surgical history above). * Patient reports increased nausea and refused lipids last evening. Will hold again today and reassess tomorrow. * Electrolytes have been largely stable and WNL * Will adjust back to chloride>acetate * Monitor phosphate and remove/reduce if continued up-trend Plan: * For Day #8 of TPN administration, the following will be ordered: * Macronutrients: * Amino Acids: 96 grams/day * Dextrose: 168 grams/day * Hold lipids per patient request * Micronutrients: * Sodium chloride: 50 mEq/day * Potassium phosphate: 3 mMol/day * Potassium chloride: 40 mEq/day * Potassium acetate: 40 mEq/day * Magnesium sulfate: 12.18 mEq/day * Calcium gluconate: 18.6 mEq/day * Multivitamins: held due to allergy * Trace elements: 1 mL/day * Thiamine: 100 mg/day * Total volume of 1306 mL will be infused over 18 hours and will provide 955 kcal/day * Labs will be ordered per PN protocol. * Pharmacy will follow and adjust PN orders on a daily basis. Thank you!
[2024-10-27] MEDS ORDERED: ESTRADIOL 0.025 MG/24 HR TD SCH (18:00)
[2024-10-27] MEDS: [UNRECOGNIZED DRUG - OTHER] IV SCH (20:48)
[2024-10-27] MEDS: CENTRAL TPN IV SCH (20:48)
--- NOTE | 2024-10-28 06:59 | Hospitalist Progress Note ---
Date of Service October 28, 2024 Assessment & Plan (1) Abdominal pain, chronic, generalized: (2) Pain disorder: (3) History of seizures: Plan 34 yo female with a past medical history of gastroparesis with chronic abdominal pain s/p PEG and ostomy, hx SMA syndrome s/p multiple abdominal surgeries, chronic pain syndrome (at times requiring ketamine), pseudoseizures 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 Requires continued admission for pain management and optimization of daily pain regimen. Abdominal pain, acute on chronic - Ddx includes motility, adhesional, SMA obstruction - Patient with history of multiples (x3) abdominal surgery at [facility]. Last surgery performed on Jun [address] Green (transplant surgery). Next surgery schedule for December 15. Discussion with Dr. Green on 10/13 indicated no need for transfer at this time, while patient is hemodynamically stable w/ no signs of obstructions or infection. [facility] Medical line - [phone]. Tasia - her specific coordinator ([phone]) -[facility] was contacted on 10/21 to update on her condition and see if they think transfer is necessary/appropriate as pt having worsening pain/increasing analgesia need, as well as more G-tube and less ostomy output. Spoke with Dr. Green, who suggested completely open G-tube+ adding suction. He also mentioned their team had success with pain control using 5-10ug ketamine / hr for 72h. - Will ask CM to pursue spinal cord stimulator (in the past, had good success with pain control on the SCS trial) - Pain management: - SOLAR INSTALLATION HELPER Dilaudid 0.50mg q10min prn - Continue Dilaudid 1 mg q2h prn, and 2mg qHS; added Dilaudid 0.5mg q2h prn to alternate with 1mg q2 as needed for breakthrough pain, consider taking off additional 0.5mg q2 tomorrow 10/27 - Ativan 1mg IV q6h changed to PRN for anxiety and nausea - Scheduled IV Tylenol - Continue fentanyl patch 50 mcg - discussed protocol for ketamine administration requiring transfer to ICU for monitoring. Pt wishes to hold off at this time and have pain managed on the PCU where she feels more comfortable - SBFT obtained due to persistent abdominal pain and retching at specific spot. Results as follows: "There is duodenal distention measuring up to 4 cm greatest diameter. There is apparent stricture at the distal duodenum and proximal jejunum at the midline, but the contrast progresses to the jejunum after mild delay. Contrast progresses to the right lower quadrant ostomy bag by 1 hour 20 minutes. Small bowel fold pattern is unremarkable. No other small bowel distention or stricture seen." - Findings read as consistent with hx of SMA syndrome - Continue Zofran q 6hr prn - Maintenance IVF with Lactated Ringers 100 ml/hr during day while TPN is not infusing - Continue eating Jonnypop ice pops from home as tolerated PNES - Suspect increased in frequency due to uncontrolled pain & vasovagal response - No neuro deficit on exam, no postictal state observed after episode - Continue pain management as above - PCU for continues monitoring - Continue Ativan prn as above Severe protein-calorie malnutrition - Continue TPN - K+ also found to have increased from 3.8 on 10/21 to 5.0 on 10/22. Today K+ is 4.1 - Continue IVF as above - BMP with AM labs Visceral hyperalgesia - chronic pain management as above, supportive care, outpt surgery and pain management follow up POTS (postural orthostatic tachycardia syndrome) / Adrenal insufficiency - IV fluids, steroids (for adrenal insufficiency as well) Ordered IV hydrocortisone 1:[address] of PO 15mg in AM and 10mg dose at 14:00 due to concern that pills have been found during ostomy bag suctioning - consider continue home steroids once BP has normalized vs wait until discharge Endometriosis - norethindrone, 0.35 mg, PO, qAM (patient's own oral contraceptive) during hospital stay FENGI - TPN / LR DVT prophylaxis - lovenox sq24 Dispo - Admit to PCU Admission and Anticipated Discharge Date Admission Date: October 12, 2024 Supervising Physician Co-Signing Physician Notes I personally examined the patient and verified solorzano points of history and exam, discussed case, and agree with decision making and plan documented by Dr. Suarez. Father at bedside. PNES in setting of increased pain. Continue hydromorphone and wean slowly as able. Bayron Quezada was seen and evaluated at bedside this AM, eating a watermelon ice pop (Jonnypop) with good tolerance. Overnight denies any significant concerns. Expressed willingness to decrease frequency of SOLAR INSTALLATION HELPER lockouts to q15min from q10, keeping dose to 0.4. Later in the day, had a couple of her NPES events, resolved as usual but upon further discussion would prefer to keep SOLAR INSTALLATION HELPER frequency and dosing the same. Continues to deny CP, dizziness, retching, dysuria or SOB. Review of Systems Review of Systems: as per hpi Physical Exam Physical Exam: Gen: alert and oriented 3, well developed and well nourished, normocephalic and atraumatic, sitting up in bed, appearing well HEENT: PERRL, EOMI, moist mucous membranes CV: +s1/s2. No murmurs, rubs or gallops. Resp: CTAB, no respiratory distress, no accessory muscle use. GI/Abd: Normoactive bowel sounds, tender to palpation of all abdominal quadrants, non-tense and non-distended, ostomy bag in place, mild erythema immediately around site of ostomy tube but no significant swelling/warmth or discharge observed Extremities: no cyanosis or clubbing. No edema Skin: normal skin turgor, normal color, no rashes observed Psychiatric: mood-affect congruence Results & Data Results & Data Vital Signs (Past 12 Hours) Vital Signs Temp Pulse Pulse Pulse Resp BP BP 10/28/24 03:56 36.4 C L 93 H 20 100/68 10/28/24 00:51 101/68 10/27/24 23:26 36.4 C L 88 16 89/61 L 10/27/24 22:10 75 10/27/24 21:00 10/27/24 20:23 108/72 10/27/24 19:15 36.7 C 82 20 92/60 L Pulse Ox O2 Del Method O2 Flow Rate 10/28/24 03:56 99 Nasal Cannula 2 10/28/24 00:51 10/27/24 23:26 97 Nasal Cannula 2 10/27/24 22:10 10/27/24 21:00 Nasal Cannula 2 10/27/24 20:23 10/27/24 19:15 100 Nasal Cannula 2 Resident Activity Tracking Resident Involvement: Resident Care Provided Care Provided: Adult Hospital Medicine
[2024-10-28 08:17] LABS: Hematocrit (blood only) 32.1 % (37.0-47.0); Hemoglobin 10.4 g/dl (12.0-16.0); Mean Corpuscular Hemoglobin 30.0 pg (25.0-34.0); Mean Corpuscular Volume 92.5 fL (80.0-100.0); Platelet Count 254 K/uL (130-400); RDW Standard Deviation 51.0 fL (36.4-46.3); Red Blood Count 3.47 M/uL (4.20-5.40); White Blood Count 5.30 K/ul (4.8-10.8)
[2024-10-28] MEDS: HYDROCORTISONE SOD 15 MG in SYRINGE 0 ML IV SCH (08:27)
[2024-10-28 08:35] LABS: Alanine Aminotransferase 24.0 U/L (7-52); Alkaline Phosphatase 96.0 U/L (34-104); Anion Gap 3.0 (3-11); Bilirubin,Total 0.3 mg/dl (0.2-1.0); Blood Urea Nitrogen 23.0 mg/dl (6-23); Calcium 8.9 mg/dl (8.6-10.3); Carbon Dioxide 32.0 mmol/L (21-32); Chloride 106.0 mmol/L (98-107); Creatinine Clr Calc Pharmacy 135.0 ml/min; Glucose 83.0 mg/dl (70-99(Fasting)); Magnesium 2.0 mg/dl (1.7-2.4); Potassium 4.4 mmol/L (3.5-5.1); Sodium 141.0 mmol/L (136-145); Triglycerides 168.0 mg/dl (0-150)
[2024-10-28] MEDS: HYDROCORTISONE SOD 10 MG in SYRINGE 0 ML IV SCH (13:47)
[2024-10-28] MEDS: CENTRAL TPN IV SCH (21:54)
[2024-10-28] MEDS: [UNRECOGNIZED DRUG - OTHER] IV SCH (21:54)
--- NOTE | 2024-10-29 07:02 | Hospitalist Progress Note ---
Date of Service October 29, 2024 Assessment & Plan (1) Abdominal pain, chronic, generalized: (2) Pain disorder: (3) History of seizures: Plan 34 yo female with a past medical history of gastroparesis with chronic abdominal pain s/p PEG and ostomy, hx SMA syndrome s/p multiple abdominal surgeries, chronic pain syndrome (at times requiring ketamine), pseudoseizures 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 Requires continued admission for pain management and optimization of daily pain regimen. Abdominal pain, acute on chronic - Ddx includes motility, adhesional, SMA obstruction - Patient with history of multiples (x3) abdominal surgery at [facility]. Last surgery performed on Jun [address] Green (transplant surgery). Next surgery schedule for December 15. Discussion with Dr. Green on 10/13 indicated no need for transfer at this time, while patient is hemodynamically stable w/ no signs of obstructions or infection. [facility] Medical line - [phone]. Tasia - her specific coordinator ([phone]) -[facility] was contacted on 10/21 to update on her condition and see if they think transfer is necessary/appropriate as pt having worsening pain/increasing analgesia need, as well as more G-tube and less ostomy output. Spoke with Dr. Green, who suggested completely open G-tube+ adding suction. He also mentioned their team had success with pain control using 5-10ug ketamine / hr for 72h. - Will ask CM to pursue spinal cord stimulator (in the past, had good success with pain control on the SCS trial) - Pain management: - [employer] Dilaudid 0.50mg q10min prn - Continue Dilaudid 1 mg q2h prn, and 2mg qHS; added Dilaudid 0.5mg q2h prn to alternate with 1mg q2 as needed for breakthrough pain, consider taking off additional 0.5mg q2 tomorrow 10/27 - Ativan 1mg IV q6h changed to PRN for anxiety and nausea - Scheduled IV Tylenol - Continue fentanyl patch 50 mcg - discussed protocol for ketamine administration requiring transfer to ICU for monitoring. Pt wishes to hold off at this time and have pain managed on the PCU where she feels more comfortable - SBFT obtained due to persistent abdominal pain and retching at specific spot. Results as follows: "There is duodenal distention measuring up to 4 cm greatest diameter. There is apparent stricture at the distal duodenum and proximal jejunum at the midline, but the contrast progresses to the jejunum after mild delay. Contrast progresses to the right lower quadrant ostomy bag by 1 hour 20 minutes. Small bowel fold pattern is unremarkable. No other small bowel distention or stricture seen." - Findings read as consistent with hx of SMA syndrome - Continue Zofran q 6hr prn - Maintenance IVF with Lactated Ringers 100 ml/hr during day while TPN is not infusing - Continue eating Jonnypop ice pops from home as tolerated PNES - Suspect increased in frequency due to uncontrolled pain & vasovagal response - No neuro deficit on exam, no postictal state observed after episode - Continue pain management as above - PCU for continues monitoring - Continue Ativan prn as above Severe protein-calorie malnutrition - Continue TPN - K+ also found to have increased from 3.8 on 10/21 to 5.0 on 10/22. Today K+ is 4.4 - Continue IVF as above - BMP with AM labs Visceral hyperalgesia - chronic pain management as above, supportive care, outpt surgery and pain management follow up POTS (postural orthostatic tachycardia syndrome) / Adrenal insufficiency - IV fluids, steroids (for adrenal insufficiency as well) Ordered IV hydrocortisone 1:[address] of PO 15mg in AM and 10mg dose at 14:00 due to concern that pills have been found during ostomy bag suctioning - consider continue home steroids once BP has normalized vs wait until discharge Endometriosis - norethindrone, 0.35 mg, PO, qAM (patient's own oral contraceptive) during hospital stay FENGI - TPN / LR DVT prophylaxis - lovenox sq24 Dispo - Admit to PCU Admission and Anticipated Discharge Date Admission Date: October 12, 2024 Supervising Physician Co-Signing Physician Notes I personally examined the patient and verified solorzano points of history and exam, discussed case, and agree with decision making and plan documented by Dr. Suarez. Pain stable at present, no adjustments of medications today. Mother Malathi at beside. Discussed planned surgery at [facility] in November. Bayron Quezada was seen and evaluated at bedside this AM, appearing sleepy but endo rses feeling okay. States she had one PNES episode and associated dry heaving overnight. Overnight denies any significant concerns. Would like to remain on current pain regimen as is today and reevaluate tomorrow. Otherwise she continues tolerating her icepops with a manageable increase in abdominal pain. Continues to deny CP, dizziness, dysuria or SOB. Review of Systems Review of Systems: as per hpi Physical Exam Physical Exam: Gen: alert and oriented 3, well developed and well nourished, normocephalic and atraumatic, sitting up in bed, appearing well HEENT: PERRL, EOMI, moist mucous membranes CV: +s1/s2. No murmurs, rubs or gallops. Resp: CTAB, no respiratory distress, no accessory muscle use. GI/Abd: Normoactive bowel sounds, tender to palpation of all abdominal quadrants, non-tense and non-distended, ostomy bag in place, mild erythema immediately around site of ostomy tube but no significant swelling/warmth or discharge observed Extremities: no cyanosis or clubbing. No edema Skin: normal skin turgor, normal color, no rashes observed Psychiatric: mood-affect congruence Results & Data Results & Data Vital Signs (Past 12 Hours) Vital Signs Temp Pulse Pulse Resp BP BP Pulse Ox 10/29/24 03:34 36.5 C 70 18 94/65 L 98 10/28/24 23:33 36.4 C L 93 H 18 106/73 99 10/28/24 21:47 108 H 10/28/24 20:30 10/28/24 20:01 36.7 C 95 H 16 107/78 98 10/28/24 20:00 Pulse Ox O2 Del Method O2 Del Method O2 Flow Rate O2 Flow Rate 10/29/24 03:34 Nasal Cannula 2 10/28/24 23:33 Nasal Cannula 2 10/28/24 21:47 10/28/24 20:30 Nasal Cannula, Other 2 10/28/24 20:01 Nasal Cannula 2 10/28/24 20:00 98 Nasal Cannula 2 Resident Activity Tracking Resident Involvement: Resident Care Provided Care Provided: Adult Hospital Medicine
[2024-10-29 09:12] LABS: Anion Gap 3.0 (3-11); Blood Urea Nitrogen 22.0 mg/dl (6-23); Calcium 8.7 mg/dl (8.6-10.3); Carbon Dioxide 31.0 mmol/L (21-32); Chloride 107.0 mmol/L (98-107); Creatinine Clr Calc Pharmacy 140.0 ml/min; Glucose 89.0 mg/dl (70-99(Fasting)); Magnesium 1.9 mg/dl (1.7-2.4); Potassium 4.3 mmol/L (3.5-5.1); Sodium 141.0 mmol/L (136-145)
[2024-10-29] MEDS ORDERED: STOP ORDER: TPN SCH (15:00)
[2024-10-29] MEDS: LACTATED RINGER'S 600 ML IV SCH (15:01)
[2024-10-29] MEDS: CENTRAL TPN IV SCH (20:59)
[2024-10-29] MEDS: [UNRECOGNIZED DRUG - OTHER] IV SCH (20:59)
--- NOTE | 2024-10-30 07:02 | Hospitalist Progress Note ---
Date of Service October 30, 2024 Assessment & Plan (1) Abdominal pain, chronic, generalized: (2) Pain disorder: (3) History of seizures: Plan 34 yo female with a past medical history of gastroparesis with chronic abdominal pain s/p PEG and ostomy, hx SMA syndrome s/p multiple abdominal surgeries, chronic pain syndrome (at times requiring ketamine), pseudoseizures 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 Requires continued admission for pain management and optimization of daily pain regimen. Abdominal pain, acute on chronic - Ddx includes motility, adhesional, SMA obstruction - Patient with history of multiples (x3) abdominal surgery at [facility]. Last surgery performed on Jun [address] Green (transplant surgery). Next surgery schedule for December 15. Discussion with Dr. Green on 10/13 indicated no need for transfer at this time, while patient is hemodynamically stable w/ no signs of obstructions or infection. [facility] Medical line - [phone]. Tasia - her specific coordinator ([phone]) -[facility] was contacted on 10/21 to update on her condition and see if they think transfer is necessary/appropriate as pt having worsening pain/increasing analgesia need, as well as more G-tube and less ostomy output. Spoke with Dr. Green, who suggested completely open G-tube+ adding suction. He also mentioned their team had success with pain control using 5-10ug ketamine / hr for 72h. - Will ask CM to pursue spinal cord stimulator (in the past, had good success with pain control on the SCS trial) - Pain management: - COSMETICS COUNTER MANAGER Dilaudid 0.50mg q10min prn - Continue Dilaudid 1 mg q2h prn, and 2mg qHS; Dilaudid 0.5mg q2h prn to alternate with 1mg q2 as needed for breakthrough pain - Ativan 1mg IV q6h changed to PRN for anxiety and nausea - Scheduled IV Tylenol - Continue fentanyl patch 50 mcg - discussed protocol for ketamine administration requiring transfer to ICU for monitoring. Pt wishes to hold off at this time and have pain managed on the PCU where she feels more comfortable - SBFT obtained due to persistent abdominal pain and retching at specific spot. Results as follows: "There is duodenal distention measuring up to 4 cm greatest diameter. There is apparent stricture at the distal duodenum and proximal jejunum at the midline, but the contrast progresses to the jejunum after mild delay. Contrast progresses to the right lower quadrant ostomy bag by 1 hour 20 minutes. Small bowel fold pattern is unremarkable. No other small bowel distention or stricture seen." - Findings read as consistent with hx of SMA syndrome - Continue Zofran q 6hr prn - Maintenance IVF with Lactated Ringers 100 ml/hr during day while TPN is not infusing - Continue eating Jonnypop ice pops from home as tolerated PNES - Suspect increased in frequency due to uncontrolled pain & vasovagal response - No neuro deficit on exam, no postictal state observed after episode - Continue pain management as above - PCU for continues monitoring - Continue Ativan prn as above Severe protein-calorie malnutrition - Continue TPN - K+ also found to have increased from 3.8 on 10/21 to 5.0 on 10/22. Today K+ is 4.4 - Continue IVF as above - BMP with AM labs Visceral hyperalgesia - chronic pain management as above, supportive care, outpt surgery and pain management follow up POTS (postural orthostatic tachycardia syndrome) / Adrenal insufficiency - IV fluids, steroids (for adrenal insufficiency as well) Ordered IV hydrocortisone 1:[address] of PO 15mg in AM and 10mg dose at 14:00 due to concern that pills have been found during ostomy bag suctioning - consider continue home steroids once BP has normalized vs wait until discharge Endometriosis - norethindrone, 0.35 mg, PO, qAM (patient's own oral contraceptive) during hospital stay FENGI - TPN / LR DVT prophylaxis - lovenox sq24 Dispo - Admit to PCU Admission and Anticipated Discharge Date Admission Date: October 12, 2024 Supervising Physician Co-Signing Physician Notes I personally examined the patient and verified solorzano points of history and exam, discussed case, and agree with decision making and plan documented by Dr. Suarez. Patient improving, self spacing out COSMETICS COUNTER MANAGER use, no formal adjustments made today. Parents at bedside with service dog. Bayron Quezada was seen and evaluated at bedside this AM, appearing sleepy but endorses feeling okay. Denies any PNES episodes overnight and endorses she slept quite well. Still tolerating her icepops and gatorade with typically tolerable increase in pain. Notes she has been putting her GranuLotion on her ostomy site, states it has improved a bit. States she is okay with remaining on her current pain regimen and has not been using the COSMETICS COUNTER MANAGER every chance possible, on board with self-spacing COSMETICS COUNTER MANAGER. Continues to deny CP, dizziness, dysuria or SOB. Review of Systems Review of Systems: as per hpi Physical Exam Physical Exam: Gen: alert and oriented 3, well developed and well nourished, normocephalic and atraumatic, sitting up in bed, appearing well HEENT: PERRL, EOMI, moist mucous membranes CV: +s1/s2. No murmurs, rubs or gallops. Resp: CTAB, no respiratory distress, no accessory muscle use. GI/Abd: Normoactive bowel sounds, tender to palpation of all abdominal quadrants, non-tense and non-distended, ostomy bag in place, mild erythema immediately around site of ostomy tube but no significant swelling/warmth or discharge observed Extremities: no cyanosis or clubbing. No edema Skin: normal skin turgor, normal color, no rashes observed Psychiatric: mood-affect congruence Results & Data Results & Data Vital Signs (Past 12 Hours) Vital Signs Temp Pulse Pulse Resp BP Pulse Ox Pulse Ox 10/30/24 06:59 63 10/30/24 03:08 36.5 C 73 19 104/72 100 10/30/24 00:43 77 10/29/24 23:07 36.6 C 106 H 18 94/57 L 96 10/29/24 21:00 10/29/24 20:00 100 10/29/24 19:19 36.6 C 71 19 107/72 99 O2 Del Method O2 Del Method O2 Flow Rate 10/30/24 06:59 10/30/24 03:08 Nasal Cannula 2 10/30/24 00:43 10/29/24 23:07 Nasal Cannula 2 10/29/24 21:00 Nasal Cannula 2 10/29/24 20:00 Nasal Cannula 10/29/24 19:19 Nasal Cannula 2 Resident Activity Tracking Resident Involvement: Resident Care Provided Care Provided: Adult [facility]
[2024-10-30 08:28] LABS: Hematocrit (blood only) 29.6 % (37.0-47.0); Hemoglobin 9.8 g/dl (12.0-16.0); Mean Corpuscular Hemoglobin 30.8 pg (25.0-34.0); Mean Corpuscular Volume 93.1 fL (80.0-100.0); Platelet Count 248 K/uL (130-400); RDW Standard Deviation 50.8 fL (36.4-46.3); Red Blood Count 3.18 M/uL (4.20-5.40); White Blood Count 4.98 K/ul (4.8-10.8)
[2024-10-30 08:43] LABS: Anion Gap 2.0 (3-11); Blood Urea Nitrogen 21.0 mg/dl (6-23); Calcium 8.7 mg/dl (8.6-10.3); Carbon Dioxide 32.0 mmol/L (21-32); Chloride 106.0 mmol/L (98-107); Creatinine Clr Calc Pharmacy 145.4 ml/min; Glucose 107.0 mg/dl (70-99(Fasting)); Magnesium 2.0 mg/dl (1.7-2.4); Potassium 4.2 mmol/L (3.5-5.1); Sodium 140.0 mmol/L (136-145)
[2024-10-30] MEDS: [UNRECOGNIZED DRUG - OTHER] IV SCH (20:39)
[2024-10-30] MEDS: CENTRAL TPN IV SCH (20:39)
[2024-10-31] MEDS: TPN/PPN CONSULT PHARMACY PRN (00:01)
[2024-10-31 08:50] LABS: Anion Gap 3.0 (3-11); Blood Urea Nitrogen 21.0 mg/dl (6-23); Calcium 8.8 mg/dl (8.6-10.3); Carbon Dioxide 32.0 mmol/L (21-32); Chloride 106.0 mmol/L (98-107); Creatinine Clr Calc Pharmacy 132.6 ml/min; Glucose 108.0 mg/dl (70-99(Fasting)); Magnesium 2.0 mg/dl (1.7-2.4); Potassium 4.3 mmol/L (3.5-5.1); Sodium 141.0 mmol/L (136-145)
[2024-10-31] MEDS: HYDROmorphone INJ 1 MG/ML SYRINGE IV STA (12:27)
--- NOTE | 2024-10-31 14:23 | Hospitalist Progress Note ---
Date of Service October 31, 2024 Assessment & Plan (1) Abdominal pain, chronic, generalized: (2) Pain disorder: (3) History of seizures: Plan 34 yo female with a past medical history of gastroparesis with chronic abdominal pain s/p PEG and ostomy, hx SMA syndrome s/p multiple abdominal surgeries, chronic pain syndrome (at times requiring ketamine), pseudoseizures 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 Requires continued admission for pain management and optimization of daily pain regimen. Abdominal pain, acute on chronic - multifactorial - somatic, functional, neuropathic, mind/body all combined - has overall been worse since last surgery; unfortunately, however, given that some of the pain is somatic/adhesional/stricture treating purely as functional/etc may not affect much improvement. - discussed ketamine as this has been helpful, but she also has much more emotional stress given house rules require ICU for ketamine and this tends to create mixed returns of some better and some worse pain control given pharmacologic benefit but mind/body worsening - since for her "falling behind" takes a lot to catch up - and since bedtime dosing has been helpful - for now will schedule 2mg dilauded AM to try to stay ahead and therefore allow hopefully weaning of prn doses and HEALTHCARE ADMINISTRATOR - increase fentanyl patch for now as well --->if 24hrs improvement, then can take G tube off suction. if 24hrs stable after that, can hopefully start to replace some IV doses w PO oxycodone PNES - Suspect increased in frequency due to uncontrolled pain & vasovagal response - represents a pain control issue - a "bad barometer" of pain control if she's having more episodes Severe protein-calorie malnutrition - Continue TPN - K+ also found to have increased from 3.8 on 10/21 to 5.0 on 10/22. Today K+ is 4.4 - Continue IVF as above - BMP with AM labs Visceral hyperalgesia - chronic pain management as above, supportive care, outpt surgery and pain management follow up POTS (postural orthostatic tachycardia syndrome) / Adrenal insufficiency - IV fluids, steroids (for adrenal insufficiency as well) Ordered IV hydrocortisone 1:[address] of PO 15mg in AM and 10mg dose at 14:00 due to concern that pills have been found during ostomy bag suctioning - consider continue home steroids once BP has normalized vs wait until discharge Endometriosis - norethindrone, 0.35 mg, PO, qAM (patient's own oral contraceptive) during hospital stay FENGI - TPN / LR DVT prophylaxis - lovenox sq24 Dispo - keep on PCU for now given that often when she requires higher dosing of narcotics she will fall behind on medical and then lose several days catching back up Admission and Anticipated Discharge Date Admission Date: October 12, 2024 Subjective pain is maybe a bit worse last 1-2 days notes that she actually does pretty well through the night but then during daytiem falls behind by mid morning notes as always for her - very difficult to catch back up once she's behind mom wonders about pills she's seen in Gsuction cannister - pt notes she's not too worried about that being a factor - she notes that with her variable GI throughput she sometimes has that happen w ostomy bag too Review of Systems Review of Systems: All systems reviewed & are unremarkable except as noted in HPI & below Physical Exam Physical Exam: gen aaox3 fatigued but nad heent nc at mmm breathing unlabored no accessory muscles good effort skin no rashes no pallor or icterus neuro no focal deficits Results & Data Results & Data Vital Signs (Past 12 Hours) Vital Signs Temp Pulse Pulse Resp BP Pulse Ox O2 Del Method 10/31/24 11:03 97.9 F 62 14 93/62 L 100 Nasal Cannula 10/31/24 07:19 56 L 10/31/24 07:12 97.5 F L 65 16 92/61 L 98 Nasal Cannula O2 Flow Rate 10/31/24 11:03 2 10/31/24 07:19 10/31/24 07:12 2 PG Care Time/CCT Total # of Minutes Spent Total Time Spent with Patient: Total time spent is greater than 50% in coordination of care (as documented) at patient's floor/unit and/or counseling patient: Coding Level of Care Code 57113 SUB INP/OBS CARE 3/50MIN Diagnoses Abdominal pain, chronic, generalized R10.84; G89.29 Pain disorder R52 History of seizures Z87.898
--- NOTE | 2024-10-31 14:46 | Pharmacy Report ---
Pharmacy PN Follow-up Note - Date of Service October 31, 2024 - Subjective Patient is currently on day #18 of TPN for continuation of chronic TPN - Objective Height & Weight (Last Documented) Height 5 ft 6 in Weight 68.946 kg Diet Order(s) 10/12/24 12:33 NPO Intake & Ouput (24hrs) 10/30/24 10/31/24 11/01/24 06:59 06:59 06:59 Intake Total 2289.92 / 2289.92 2837.65 / 2837.65 Output Total 1925 / 1925 1275 / 1275 950 / 950 Balance 364.92 / 364.92 1562.65 / 1562.65 -950 / -950 Selected Laboratory Results 10/31/24 08:14 Sodium 141 Potassium 4.3 Chloride 106 Carbon Dioxide 32 Anion Gap 3 BUN 21 Creatinine 0.57 L BUN/Creatinine Ratio 36.8 H Glucose 108 H Calcium 8.8 Phosphorus 4.2 Magnesium 2.0 - Assessment & Plan Assessment: 10/28/24: * Electrolytes stable and TPN not requiring any changes over past several days * Discussed with patient who would prefer to continuing holding lipids at this time, this is reasonable 10/27: * Labs mostly stable, no changes to TPN electrolytes in 48 hours, continue cyclic 18 hour TPN * Lipids planned for MWF, Pilar still requesting lipids to be held due to nausea from administration 10/25: * Labs continuing to be rather stable * Increase potassium content today as labs trending down and TPN prior to admission contained more * Monitor phosphate levels, continue with small amount today * Additional magnesium added as labs trending down and TPN prior to admission contained more * Pilar requested the lipids were held yesterday again, will continue with MWF lipids as tolerated, continue goal AA and dextrose. 10/21: * Labs largely stable, add back in small amount of phosphate, no other electrolyte adjustments to TPN today * Pilar still reporting nausea, small bowel follow through today. Requests lipids are held again. Typically MWF lipids. 10/18: * DF is a 34 year old female well known to pharmacy parenteral nutrition consult service (see medical/surgical history above). * Patient reports increased nausea and refused lipids last evening. Will hold again today and reassess tomorrow. * Electrolytes have been largely stable and WNL * Will adjust back to chloride>acetate * Monitor phosphate and remove/reduce if continued up-trend Plan: * For Day #18 of TPN administration, the following will be ordered: * Macronutrients: * Amino Acids: 96 grams/day * Dextrose: 168 grams/day * Hold lipids * Micronutrients: * Sodium chloride: 50 mEq/day * Potassium phosphate: 3 mMol/day * Potassium chloride: 40 mEq/day * Potassium acetate: 40 mEq/day * Magnesium sulfate: 12.18 mEq/day * Calcium gluconate: 18.6 mEq/day * Multivitamins: held due to allergy * Trace elements: 1 mL/day * Thiamine: 100 mg/day * Total volume of 1306 mL will be infused over 18 hours and will provide 955 kcal/day * Labs will be ordered per PN protocol. * Pharmacy will follow and adjust PN orders on a daily basis. Thank you!
[2024-10-31] MEDS: CENTRAL TPN IV SCH (21:22)
[2024-10-31] MEDS: [UNRECOGNIZED DRUG - OTHER] IV SCH (21:22)
--- NOTE | 2024-11-01 06:58 | Hospitalist Progress Note ---
Date of Service November 01, 2024 Assessment & Plan (1) Abdominal pain, chronic, generalized: (2) Pain disorder: (3) History of seizures: Plan 34 yo female with a past medical history of gastroparesis with chronic abdominal pain s/p PEG and ostomy, hx SMA syndrome s/p multiple abdominal surgeries, chronic pain syndrome (at times requiring ketamine), pseudoseizures 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 Requires continued admission for pain management and optimization of daily pain regimen. Abdominal pain, acute on chronic - Ddx includes motility, adhesional, SMA obstruction - Patient with history of multiples (x3) abdominal surgery at [facility]. Last surgery performed on Jun [address] Green (transplant surgery). Next surgery schedule for December 15. Discussion with Dr. Green on 10/13 indicated no need for transfer at this time, while patient is hemodynamically stable w/ no signs of obstructions or infection. [facility] Medical line - [phone]. Tasia - her specific coordinator ([phone]) -[facility] was contacted on 10/21 to update on her condition and see if they think transfer is necessary/appropriate as pt having worsening pain/increasing analgesia need, as well as more G-tube and less ostomy output. Spoke with Dr. Green, who suggested completely open G-tube+ adding suction. He also mentioned their team had success with pain control using 5-10ug ketamine / hr for 72h. - Will ask CM to pursue spinal cord stimulator (in the past, had good success with pain control on the SCS trial) - Pain management: - SUPERVISOR METER SHOP Dilaudid 0.50mg q10min prn - Continue Dilaudid 1 mg q2h prn, and 2mg qHS; Dilaudid 0.5mg q2h prn to alternate with 1mg q2 as needed for breakthrough pain - Ativan 1mg IV q6h changed to PRN for anxiety and nausea - Scheduled IV Tylenol - Continue fentanyl patch 50 mcg - discussed protocol for ketamine administration requiring transfer to ICU for monitoring. Pt wishes to hold off at this time and have pain managed on the PCU where she feels more comfortable - SBFT obtained due to persistent abdominal pain and retching at specific spot. Results as follows: "There is duodenal distention measuring up to 4 cm greatest diameter. There is apparent stricture at the distal duodenum and proximal jejunum at the midline, but the contrast progresses to the jejunum after mild delay. Contrast progresses to the right lower quadrant ostomy bag by 1 hour 20 minutes. Small bowel fold pattern is unremarkable. No other small bowel distention or stricture seen." - Findings read as consistent with hx of SMA syndrome - Continue Zofran q 6hr prn - Maintenance IVF with Lactated Ringers 100 ml/hr during day while TPN is not infusing - Continue eating home popsicles as tolerated - Consider g-tube back to gravity tomorrow 11/02 PNES - Suspect increased in frequency due to uncontrolled pain & vasovagal response - No neuro deficit on exam, no postictal state observed after episode - Continue pain management as above - PCU for continues monitoring - Continue Ativan prn for nausea as above Severe protein-calorie malnutrition - Continue TPN - K+ also found to have increased from 3.8 on 10/21 to 5.0 on 10/22. Today K+ is 4.1 - Continue IVF as above - BMP with AM labs Visceral hyperalgesia - chronic pain management as above, supportive care, outpt surgery and pain management follow up POTS (postural orthostatic tachycardia syndrome) / Adrenal insufficiency - IV fluids, steroids (for adrenal insufficiency as well) Continue IV hydrocortisone 1:[address] of PO 15mg in AM and 10mg dose at 14:00 due to concern that pills have been found during ostomy bag suctioning - consider continue home steroids once BP has normalized vs wait until discharge Endometriosis - norethindrone, 0.35 mg, PO, qAM (patient's own oral contraceptive) during hospital stay FENGI - TPN / LR DVT prophylaxis - lovenox sq24 Dispo - Admit to PCU Admission and Anticipated Discharge Date Admission Date: October 12, 2024 Supervising Physician Co-Signing Physician Notes I personally examined the patient and verified all solorzano points of history and exam, discussed case, and agree with decision making with Dr Suarez feeling reasonable today. pain under better control - napped for about an hour, able to space SUPERVISOR METER SHOP out more. trying popsicles vitals notd nad heent nc at mmm breathing unlabored no accessory muscles good effort skin no rashes no pallor or icterus intractable abdominal pain - improving. proactive approach seems to be helping. continue dilauded AM, HS; weaning (self spacing) SUPERVISOR METER SHOP. trying gentle PO intake. hopefully Gtube back to gravity (her normal) by tomorrow. otherwise as above Subjective Pilar was seen and evaluated at bedside this AM, in some pain due to getting behind on her pain meds overnight. Has been overall doing a bit better, able to take some naps and has been self- spacing her SUPERVISOR METER SHOP. On board with plan to have g-tube go back to gravity rather than suction tomorrow 11/02. Reportedly did have 2 PNES episodes in mid-afternoon, given her dilaudid and ativan prns for pain and nausea, respectively. Review of Systems Review of Systems: as per hpi Physical Exam Physical Exam: Gen: alert and oriented 3, well developed and well nourished, normocephalic and atraumatic, sitting up in bed, appearing well HEENT: PERRL, EOMI, moist mucous membranes CV: +s1/s2. No murmurs, rubs or gallops. Resp: no respiratory distress, no accessory muscle use. GI/Abd: Normoactive bowel sounds, tender to palpation of all abdominal quadrants, non-tense and non-distended Extremities: no cyanosis or clubbing. No edema Skin: normal skin turgor, normal color, no rashes observed Psychiatric: mood-affect congruence Results & Data Results & Data Vital Signs (Past 12 Hours) Vital Signs Temp Pulse Pulse Resp BP BP Pulse Ox 11/01/24 03:30 36.4 C L 70 15 91/63 L 98 10/31/24 23:11 36.5 C 66 13 114/76 100 10/31/24 22:21 101 H 10/31/24 19:50 36.5 C 82 14 112/77 97 O2 Del Method O2 Flow Rate 11/01/24 03:30 Nasal Cannula 2 10/31/24 23:11 Nasal Cannula 2 10/31/24 22:21 10/31/24 19:50 Nasal Cannula 2 Resident Activity Tracking Resident Involvement: Resident Care Provided Care Provided: Adult Hospital Medicine
[2024-11-01 07:02] LABS: Anion Gap 3.0 (3-11); Blood Urea Nitrogen 22.0 mg/dl (6-23); Calcium 8.6 mg/dl (8.6-10.3); Carbon Dioxide 32.0 mmol/L (21-32); Chloride 106.0 mmol/L (98-107); Creatinine Clr Calc Pharmacy 137.5 ml/min; Glucose 90.0 mg/dl (70-99(Fasting)); Magnesium 2.1 mg/dl (1.7-2.4); Potassium 4.1 mmol/L (3.5-5.1); Sodium 141.0 mmol/L (136-145)
[2024-11-01] MEDS: HYDROmorphone INJ 2 MG/ML SYR/VIAL IV SCH (08:20)
--- NOTE | 2024-11-01 15:58 | Billing Data ---
Date of Service November 01, 2024 Coding Level of Care Code 94226 SUB INP/OBS CARE MIN
[2024-11-01] MEDS: CENTRAL TPN IV SCH (21:07)
[2024-11-01] MEDS: [UNRECOGNIZED DRUG - OTHER] IV SCH (21:07)
--- NOTE | 2024-11-02 07:08 | Hospitalist Progress Note ---
Date of Service November 02, 2024 Assessment & Plan (1) Abdominal pain, chronic, generalized: (2) Pain disorder: (3) History of seizures: Plan 34 yo female with a past medical history of gastroparesis with chronic abdominal pain s/p PEG and ostomy, hx SMA syndrome s/p multiple abdominal surgeries, chronic pain syndrome (at times requiring ketamine), pseudoseizures 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 Requires continued admission for pain management and optimization of daily pain regimen. Abdominal pain, acute on chronic - Ddx includes motility, adhesional, SMA obstruction - Patient with history of multiples (x3) abdominal surgery at [facility]. Last surgery performed on Jun [address] Green (transplant surgery). Next surgery schedule for December 15. Discussion with Dr. Green on 10/13 indicated no need for transfer at this time, while patient is hemodynamically stable w/ no signs of obstructions or infection. [facility] Medical line - [phone]. Tasia - her specific coordinator ([phone]) -[facility] was contacted on 10/21 to update on her condition and see if they think transfer is necessary/appropriate as pt having worsening pain/increasing analgesia need, as well as more G-tube and less ostomy output. Spoke with Dr. Green, who suggested completely open G-tube+ adding suction. He also mentioned their team had success with pain control using 5-10ug ketamine / hr for 72h - Will ask CM to pursue spinal cord stimulator (in the past, had good success with pain control on the SCS trial) - Pain management: - GEOLOGICAL TECHNICAL OFFICER Dilaudid 0.50mg q10min prn - Continue Dilaudid 1 mg q2h prn, and 2mg qHS; Dilaudid 0.5mg q2h prn to alternate with 1mg q2 as needed for breakthrough pain - Ativan 1mg IV q6h changed to PRN for anxiety and nausea - Scheduled IV Tylenol - Continue fentanyl patch 50 mcg - discussed protocol for ketamine administration requiring transfer to ICU for monitoring. Pt wishes to hold off at this time and have pain managed on the PCU where she feels more comfortable Revisited this option after bout of significant abdominal pain this afternoon, endorses she would be willing to go to the ICU for ketamine if the pain were to become that severe again for longer periods or more frequently - Small Bowel Follow Through: "There is duodenal distention measuring up to 4 cm greatest diameter. There is apparent stricture at the distal duodenum and proximal jejunum at the midline, but the contrast progresses to the jejunum after mild delay. Contrast progresses to the right lower quadrant ostomy bag by 1 hour 20 minutes. Small bowel fold pattern is unremarkable. No other small bowel distention or stricture seen." - Findings read as consistent with hx of SMA syndrome - Continue Zofran q 6hr prn - Maintenance IVF with Lactated Ringers 100 ml/hr during day while TPN is not infusing - Continue eating home popsicles as tolerated - Back to gravity drainage PNES - Suspect increased in frequency due to uncontrolled pain & vasovagal response - No neuro deficit on exam, no postictal state observed after episode - Continue pain management as above - PCU for continues monitoring - Continue Ativan prn for nausea as above Severe protein-calorie malnutrition - Continue TPN - K+ also found to have increased from 3.8 on 10/21 to 5.0 on 10/22. Potassium stable. - Continue IVF as above - BMP with AM labs Visceral hyperalgesia - chronic pain management as above, supportive care, outpt surgery and pain management follow up POTS (postural orthostatic tachycardia syndrome) / Adrenal insufficiency - IV fluids, steroids (for adrenal insufficiency as well) Continue IV hydrocortisone 1:[address] PO 15mg in AM and 10mg dose at 14:00 due to concern that pills have been found during ostomy bag suctioning - consider continue home steroids once BP has normalized vs wait until discharge Endometriosis - norethindrone, 0.35 mg, PO, qAM (patient's own oral contraceptive) during hospital stay FENGI - TPN / LR DVT prophylaxis - lovenox sq24 Dispo - Admit to PCU Admission and Anticipated Discharge Date Admission Date: October 12, 2024 Supervising Physician Co-Signing Physician Notes I personally examined the patient and verified all solorzano points of history and exam, discussed case, and agree with decision making with Dr Suarez pain worse since about 3am - twisting pain, much more vomiting, additional diluaded not helping vitals noted appearing very uncomfortable in pain dry heaving. abd very tender but (accounting for scarring, tubes, ostomy) not rigid (more or less in "her normal" range for firmness - nothing that seems to be approaching rebound/guarding). skin without rashes pallor or icterus intractable abdominal pain - worse since ~3am - additional dilauded not helping; given ativan often helps w nausea - 1mg stat. if not imporving after this, given degree of suffering, we'll probably need to consider tx ICU for ketamine otherwise as above Subjective iPlar was seen and evaluated at bedside this AM, in some pain due to getting behind on her pain meds overnight. Has been overall doing a bit better, able to take some naps and has been self- spacing her GEOLOGICAL TECHNICAL OFFICER. Upon receiving msg that her pain had become more severe, went to bedside to assess. Pt was appearing to be in much pain, intermittently moaning and dry heaving. Revisited the option of ketamine, which can only be given in the ICU, if the pain were to worsen or persist. Agreed to start with Ativan IV and check back in later. Upon checking in later, she was feeling a bit better- hadn't had any PNES episodes or further dry heaves. Review of Systems Review of Systems: as per hpi Physical Exam Physical Exam: Gen: alert and oriented 3, well developed and well nourished, normocephalic and atraumatic, sitting up in bed, appearing in mild distress HEENT: PERRL, EOMI, moist mucous membranes CV: RRR, appearing well perfused Resp: no respiratory distress, no accessory muscle use GI/Abd: Normoactive bowel sounds, tender to palpation of all abdominal quadrants, non-tense and non-distended Extremities: no cyanosis or clubbing. No edema Skin: normal skin turgor, normal color, no rashes observed Psychiatric: mood-affect congruence Results & Data Results & Data Vital Signs (Past 12 Hours) Vital Signs Temp Pulse Pulse Pulse Resp BP Pulse Ox 11/02/24 03:01 36.6 C 76 16 95/68 L 99 11/01/24 23:00 36.8 C 75 16 103/76 99 11/01/24 22:13 58 L 11/01/24 19:16 36.7 C 84 12 109/77 O2 Del Method 11/02/24 03:01 Room Air 11/01/24 23:00 Room Air 11/01/24 22:13 11/01/24 19:16 Resident Activity Tracking Resident Involvement: Resident Care Provided Care Provided: Adult Hospital Medicine
[2024-11-02] MEDS: HYDROmorphone INJ 1 MG/ML SYRINGE IV STA (10:50)
[2024-11-02] MEDS: LACTATED RINGER'S 1,000 ML IV SCH (11:58)
--- NOTE | 2024-11-02 13:04 | Billing Data ---
Date of Service November 02, 2024 Coding Level of Care Code 37668 SUB INP/OBS CARE MIN
[2024-11-02] MEDS ORDERED: NALOXONE HCL 0.4 MG/1 ML VIAL/CARP IV PRN (19:23)
[2024-11-02] MEDS: CLINOLIPID 20% IV FAT EMULSION 250 ML IV SCH (20:45)
[2024-11-02] MEDS: CENTRAL TPN IV SCH (20:45)
[2024-11-02] MEDS: [UNRECOGNIZED DRUG - OTHER] IV SCH (20:45)
[2024-11-03] MEDS: STOP CLINOLIPID SCH (04:53)
--- NOTE | 2024-11-03 07:13 | Hospitalist Progress Note ---
Date of Service November 03, 2024 Assessment & Plan (1) Abdominal pain, chronic, generalized: (2) Pain disorder: (3) History of seizures: Plan 34 yo female with a past medical history of gastroparesis with chronic abdominal pain s/p PEG and ostomy, hx SMA syndrome s/p multiple abdominal surgeries, chronic pain syndrome (at times requiring ketamine), pseudoseizures 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 Requires continued admission for pain management and optimization of daily pain regimen. ICU for ketamine drip now a viable option if pt chooses to go that route. Abdominal pain, acute on chronic - Ddx includes motility, adhesional, SMA obstruction - Patient with history of multiples (x3) abdominal surgery at [facility]. Last surgery performed on Jun [address] Green (transplant surgery). Next surgery schedule for December 15. Discussion with Dr. Green on 10/13 indicated no need for transfer at this time, while patient is hemodynamically stable w/ no signs of obstructions or infection. - Small Bowel Follow Through: "There is duodenal distention measuring up to 4 cm greatest diameter. There is apparent stricture at the distal duodenum and proximal jejunum at the midline, but the contrast progresses to the jejunum after mild delay. Contrast progresses to the right lower quadrant ostomy bag by 1 hour 20 minutes. Small bowel fold pattern is unremarkable. No other small bowel distention or stricture seen." - Findings read as consistent with hx of SMA syndrome [facility] Medical line - [phone] Dozier - her specific coordinator ([phone]) -[facility] was contacted on 10/21 to update on her condition and see if they think transfer is necessary/appropriate as pt having worsening pain/increasing analgesia need, as well as more G-tube and less ostomy output. Spoke with Dr. Green, who suggested completely open G-tube+ adding suction. He also mentioned their team had success with pain control using 5-10ug ketamine / hr for 72h - Will ask CM to pursue spinal cord stimulator (in the past, had good success with pain control on the SCS trial) - Pain management: - WOOL HAT HYDRAULICKER Dilaudid 0.50mg q10min prn - Continue Dilaudid 1 mg q2h prn, and 2mg qHS; Dilaudid 0.5mg q2h prn to alternate with 1mg q2 as needed for breakthrough pain - Ativan 1mg IV q6h changed to PRN for anxiety and nausea - Scheduled IV Tylenol - Continue fentanyl patch 50 mcg - discussed protocol for ketamine administration requiring transfer to ICU for monitoring. Pt wishes to hold off at this time and have pain managed on the PCU where she feels more comfortable Revisited this option after bout of significant abdominal pain this afternoon, endorses she would be willing to go to the ICU for ketamine if the pain were to become that severe again for longer periods or more frequently Of note, the ICU can now accommodate ketamine drip rather than just bolus/push dosing, which is more appealing to pt. Aware that they can decide to go there at any time and would be accepted - Continue Zofran q 6hr prn - Maintenance IVF with Lactated Ringers 100 ml/hr during day while TPN is not infusing - Continue eating home popsicles as tolerated - Back to gravity drainage when once having some better days PNES - Suspect increased in frequency due to uncontrolled pain & vasovagal response - No neuro deficit on exam, no postictal state observed after episode - Continue pain management as above - PCU for continues monitoring - Continue Ativan prn for nausea as above Severe protein-calorie malnutrition - Continue TPN - K+ also found to have increased from 3.8 on 10/21 to 5.0 on 10/22. Potassium stable. - Continue IVF as above - BMP with AM labs Visceral hyperalgesia - chronic pain management as above, supportive care, outpt surgery and pain management follow up POTS (postural orthostatic tachycardia syndrome) / Adrenal insufficiency - IV fluids, steroids (for adrenal insufficiency as well) Continue IV hydrocortisone 1:[address] PO 15mg in AM and 10mg dose at 14:00 due to concern that pills have been found during ostomy bag suctioning - consider continue home steroids once BP has normalized vs wait until discharge Endometriosis - norethindrone, 0.35 mg, PO, qAM (patient's own oral contraceptive) during hospital stay FENGI - TPN / LR DVT prophylaxis - lovenox sq24 Dispo - Admit to PCU Admission and Anticipated Discharge Date Admission Date: October 12, 2024 Supervising Physician Co-Signing Physician Notes I personally examined the patient and verified all solorzano points of history and exam, discussed case, and agree with decision making with Dr Suarez worse pain again today. dilauded followed quickly with ativan helps some, but overall still worse today than before vitals noted very fatigued, appearing moderately uncomfortable. breathing unlabored no accessory muscles good effort skin no rashes no pallor or icterus intractable abdominal pain - worse since yesterday but with some ups/downs. suspect with rather random onset probably this particular pain episode is motility/functional driven. no clear need for re-imaging or transfer at this time. main options are continuing with current treatment or move to ICU for ketamine. pt considering. d/w ICU team who are aware of her situation and willing to assist w ketamine gtt if needed. otherwise as above Subjective Pilar was seen and evaluated at bedside this AM, in some pain due to getting behind on her pain meds overnight. Has been overall doing a bit better, able to take some naps and has been self- spacing her WOOL HAT HYDRAULICKER. Upon receiving msg that her pain had become more severe again for the 2nd day in a row, went to bedside again to assess. Pt was appearing to be in much pain, intermittently moaning and dry heaving. Revisited the option of ketamine, which can only be given in the ICU, if the pain were to worsen or persist. Informed of recently learned information that ICU can accommodate with ketamine drip rather than bolus/push dose. Upon checking back in a few hours alter, she notes feeling a bit better, with 6- 7/10 pain but "manageable" per patient report and willing to continue stay in current room for now. Understands that the ICU is aware and willing to accept her if she were to change her mind at any time. Review of Systems Review of Systems: as per hpi Physical Exam Physical Exam: Gen: alert and oriented 3, well developed and well nourished, normocephalic and atraumatic, sitting up in bed, appearing tired and in mild distress HEENT: PERRL, EOMI, moist mucous membranes CV: RRR, appearing well perfused Resp: no respiratory distress, no accessory muscle use GI/Abd: Normoactive bowel sounds, tender to palpation of all abdominal quadrants, non-tense and non-distended Extremities: no cyanosis or clubbing. No edema Skin: normal skin turgor, normal color, no rashes observed Psychiatric: mood-affect congruence Results & Data Results & Data Vital Signs (Past 12 Hours) Vital Signs Temp Pulse Pulse Resp BP Pulse Ox O2 Del Method 11/03/24 03:37 36.8 C 76 20 109/76 96 Nasal Cannula 11/02/24 23:04 36.6 C 85 20 119/89 100 Nasal Cannula 11/02/24 22:08 91 H 11/02/24 20:11 36.8 C 83 20 112/79 100 Nasal Cannula Resident Activity Tracking Resident Involvement: Resident Care Provided Care Provided: Adult Hospital Medicine
[2024-11-03 09:16] LABS: Anion Gap 5.0 (3-11); Blood Urea Nitrogen 18.0 mg/dl (6-23); Calcium 8.5 mg/dl (8.6-10.3); Carbon Dioxide 31.0 mmol/L (21-32); Chloride 104.0 mmol/L (98-107); Creatinine Clr Calc Pharmacy 112.8 ml/min; Glucose 170.0 mg/dl (70-99(Fasting)); Magnesium 1.8 mg/dl (1.7-2.4); Potassium 3.9 mmol/L (3.5-5.1); Sodium 140.0 mmol/L (136-145)
[2024-11-03] MEDS: HYDROmorphone INJ 0.5 MG/0.5 ML SYR IV STA (12:06)
[2024-11-03] MEDS: HYDROmorphone INJ 1 MG/ML SYRINGE IV STA (13:25)
--- NOTE | 2024-11-03 15:55 | Billing Data ---
Date of Service November 03, 2024 Coding Level of Care Code 40259 SUB INP/OBS CARE MIN
[2024-11-03] MEDS: SODIUM CHLORIDE 0.9% 1,000 ML IV SCH (18:26)
[2024-11-03] MEDS: [UNRECOGNIZED DRUG - OTHER] IV SCH (21:24)
[2024-11-03] MEDS: CENTRAL TPN IV SCH (21:24)
--- NOTE | 2024-11-04 06:51 | Hospitalist Progress Note ---
Date of Service November 04, 2024 Assessment & Plan (1) Abdominal pain, chronic, generalized: (2) Pain disorder: (3) History of seizures: Plan 34 yo female with a past medical history of gastroparesis with chronic abdominal pain s/p PEG and ostomy, hx SMA syndrome s/p multiple abdominal surgeries, chronic pain syndrome (at times requiring ketamine), pseudoseizures 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 Requires continued admission for pain management and optimization of daily pain regimen. ICU for ketamine drip now a viable option if pt chooses to go that route. Abdominal pain, acute on chronic - Ddx includes motility, adhesional, SMA obstruction - Patient with history of multiples (x3) abdominal surgery at [facility]. Last surgery performed on Jun [address] Green (transplant surgery). Next surgery schedule for December 15. Discussion with Dr. Green on 10/13 indicated no need for transfer at this time, while patient is hemodynamically stable w/ no signs of obstructions or infection. - Small Bowel Follow Through: "There is duodenal distention measuring up to 4 cm greatest diameter. There is apparent stricture at the distal duodenum and proximal jejunum at the midline, but the contrast progresses to the jejunum after mild delay. Contrast progresses to the right lower quadrant ostomy bag by 1 hour 20 minutes. Small bowel fold pattern is unremarkable. No other small bowel distention or stricture seen." - Findings read as consistent with hx of SMA syndrome [facility] Medical line - [phone] Dozier - her specific coordinator ([phone]) -[facility] was contacted on 10/21 to update on her condition and see if they think transfer is necessary/appropriate as pt having worsening pain/increasing analgesia need, as well as more G-tube and less ostomy output. Spoke with Dr. Green, who suggested completely open G-tube+ adding suction. He also mentioned their team had success with pain control using 5-10ug ketamine / hr for 72h - Will ask CM to pursue spinal cord stimulator (in the past, had good success with pain control on the SCS trial) - Pain management: - CATALOG LIBRARY ASSISTANT Dilaudid 0.50mg q10min prn - Continue Dilaudid 1 mg q2h prn, and 2mg qHS; Dilaudid 0.5mg q2h prn to alternate with 1mg q2 as needed for breakthrough pain - Ativan 1mg IV q6h changed to PRN for anxiety and nausea - Scheduled IV Tylenol - Continue fentanyl patch 50 mcg - discussed protocol for ketamine administration requiring transfer to ICU for monitoring. Pt wishes to hold off at this time and have pain managed on the PCU where she feels more comfortable Revisited this option after bout of significant abdominal pain this afternoon, endorses she would be willing to go to the ICU for ketamine if the pain were to become that severe again for longer periods or more frequently Of note, the ICU can now accommodate ketamine drip rather than just bolus/push dosing, which is more appealing to pt. Aware that they can decide to go there at any time and would be accepted - Continue Zofran q 6hr prn - Maintenance IVF with Lactated Ringers 100 ml/hr during day while TPN is not infusing - Continue eating home popsicles as tolerated - Back to gravity drainage when once having some better days PNES - Suspect increased in frequency due to uncontrolled pain & vasovagal response - No neuro deficit on exam, no postictal state observed after episode - Continue pain management as above - PCU for continues monitoring - Continue Ativan prn for nausea as above Severe protein-calorie malnutrition - Continue TPN - K+ also found to have increased from 3.8 on 10/21 to 5.0 on 10/22. Potassium stable. - Continue IVF as above - BMP with AM labs Visceral hyperalgesia - chronic pain management as above, supportive care, outpt surgery and pain management follow up POTS (postural orthostatic tachycardia syndrome) / Adrenal insufficiency - IV fluids, steroids (for adrenal insufficiency as well) Continue IV hydrocortisone 1:[address] PO 15mg in AM and 10mg dose at 14:00 due to concern that pills have been found during ostomy bag suctioning - consider continue home steroids once BP has normalized vs wait until discharge Endometriosis - norethindrone, 0.35 mg, PO, qAM (patient's own oral contraceptive) during hospital stay FENGI - TPN / LR DVT prophylaxis - lovenox sq24 Dispo - Admit to PCU Admission and Anticipated Discharge Date Admission Date: October 12, 2024 Supervising Physician Co-Signing Physician Notes I personally examined the patient and verified all solorzano points of history and exam, discussed case, and agree with decision making with Dr Suarez pain improving again. worried about pain after ostomy change, but otherwise feels like she's doing better. did eat some popsicles (Gtube is to suction, but not a ton of pain or nausea with increase in peristalsis) vitals noted very fatigued, appearing moderately uncomfortable. breathing unlabored no accessory muscles good effort skin no rashes no pallor or icterus intractable abdominal pain - improving again. continue current care for today, since ostomy changes often spike pain a good deal. hopefully tomorrow Gtube to gravity and work towards home otherwise as above Subjective Pilar was seen and evaluated at bedside this AM, in some pain due to getting behind on her pain meds overnight with 7-8/10 pain but manageable. States she is feeling okay enough to stay on the floor at this time. Denies any overnight intense pain spells, dry heaves, or PNES episodes. Review of Systems Review of Systems: as per hpi Physical Exam Physical Exam: Gen: alert and oriented 3, well developed and well nourished, normocephalic and atraumatic, sitting up in bed, appearing tired and in mild distress HEENT: PERRL, EOMI, moist mucous membranes CV: RRR, appearing well perfused Resp: no respiratory distress, no accessory muscle use GI/Abd: Normoactive bowel sounds, tender to palpation of all abdominal quadrants, non-tense and non-distended Extremities: no cyanosis or clubbing. No edema Skin: normal skin turgor, normal color, no rashes observed Psychiatric: mood-affect congruence Results & Data Results & Data Vital Signs (Past 12 Hours) Vital Signs Temp Pulse Pulse Resp BP Pulse Ox O2 Del Method 11/04/24 02:47 36.5 C 67 18 126/78 100 Nasal Cannula 11/04/24 01:36 87 11/03/24 23:01 36.5 C 73 18 120/83 100 Nasal Cannula 11/03/24 19:43 36.5 C 76 18 111/79 99 Nasal Cannula Resident Activity Tracking Resident Involvement: Resident Care Provided Care Provided: Adult Hospital Medicine
[2024-11-04 08:03] LABS: Hematocrit (blood only) 29.3 % (37.0-47.0); Hemoglobin 9.8 g/dl (12.0-16.0); Mean Corpuscular Hemoglobin 30.4 pg (25.0-34.0); Mean Corpuscular Volume 91.0 fL (80.0-100.0); Platelet Count 244 K/uL (130-400); RDW Standard Deviation 47.3 fL (36.4-46.3); Red Blood Count 3.22 M/uL (4.20-5.40); White Blood Count 5.49 K/ul (4.8-10.8)
[2024-11-04 08:19] LABS: Alanine Aminotransferase 30.0 U/L (7-52); Alkaline Phosphatase 110.0 U/L (34-104); Anion Gap 3.0 (3-11); Blood Urea Nitrogen 19.0 mg/dl (6-23); Calcium 8.6 mg/dl (8.6-10.3); Carbon Dioxide 33.0 mmol/L (21-32); Chloride 105.0 mmol/L (98-107); Creatinine Clr Calc Pharmacy 126.0 ml/min; Glucose 100.0 mg/dl (70-99(Fasting)); Magnesium 2.0 mg/dl (1.7-2.4); Potassium 4.0 mmol/L (3.5-5.1); Sodium 141.0 mmol/L (136-145); Triglycerides 210.0 mg/dl (0-150)
[2024-11-04] MEDS: ACETAMINOPHEN 1,000 MG/100 ML VIAL IV STA (13:17)
--- NOTE | 2024-11-04 14:00 | Pharmacy Report ---
Pharmacy PN Follow-up Note - Date of Service November 04, 2024 - Subjective Patient is currently on day #22 of TPN for chronic home TPN. - Objective Height & Weight (Last Documented) Height 5 ft 6 in Weight 68.7 kg Diet Order(s) 10/12/24 12:33 NPO Intake & Ouput (24hrs) 11/03/24 11/04/24 11/05/24 06:59 06:59 06:59 Intake Total 4809.833 / 4809.833 2706.700 / 2706.700 1301.2 / 1301.2 Output Total 1825 / 1825 Balance 4809.833 / 4809.833 881.700 / 184.056 3500.2 / 1301.2 Selected Laboratory Results 11/04/24 07:46 Sodium 141 Potassium 4.0 Chloride 105 Carbon Dioxide 33 H Anion Gap 3 BUN 19 Creatinine 0.60 BUN/Creatinine Ratio 31.7 H Glucose 100 H Calcium 8.6 Phosphorus 3.7 Magnesium 2.0 AST 20 ALT 30 Alkaline Phosphatase 110 H Triglycerides 210 H - Assessment & Plan Assessment: 11/04: * No changes to TPN formulation after multiple days, will get labs MWF for assessment and adjustments now as long as they remain stable. * On Thursday, dietary discussed holding of lipids with patient, she is agreeable to try to resume, continue with 50gm MWF. 10/28: * Electrolytes stable and TPN not requiring any changes over past several days * Discussed with patient who would prefer to continuing holding lipids at this time, this is reasonable 10/27: * Labs mostly stable, no changes to TPN electrolytes in 48 hours, continue cyclic 18 hour TPN * Lipids planned for MWF, Pilar still requesting lipids to be held due to nausea from administration 10/25: * Labs continuing to be rather stable * Increase potassium content today as labs trending down and TPN prior to admission contained more * Monitor phosphate levels, continue with small amount today * Additional magnesium added as labs trending down and TPN prior to admission contained more * Pilar requested the lipids were held yesterday again, will continue with MWF lipids as tolerated, continue goal AA and dextrose. 10/21: * Labs largely stable, add back in small amount of phosphate, no other electro lyte adjustments to TPN today * Pilar still reporting nausea, small bowel follow through today. Requests lipids are held again. Typically MWF lipids. 10/18: * DF is a 34 year old female well known to pharmacy parenteral nutrition consult service (see medical/surgical history above). * Patient reports increased nausea and refused lipids last evening. Will hold again today and reassess tomorrow. * Electrolytes have been largely stable and WNL * Will adjust back to chloride>acetate * Monitor phosphate and remove/reduce if continued up-trend Plan: * For Day #18 of TPN administration, the following will be ordered: * Macronutrients: * Amino Acids: 96 grams/day * Dextrose: 168 grams/day * Lipids: 50 grams MWF * Micronutrients: * Sodium chloride: 50 mEq/day * Potassium phosphate: 3 mMol/day * Potassium chloride: 40 mEq/day * Potassium acetate: 40 mEq/day * Magnesium sulfate: 12.18 mEq/day * Calcium gluconate: 18.6 mEq/day * Multivitamins: held due to allergy * Trace elements: 1 mL/day * Thiamine: 100 mg/day * Total volume of 1306 mL will be infused over 18 hours and will provide 1255 kcal/day (MWF) and 955 kcal/day the other days. * Labs will be ordered per PN protocol. * Pharmacy will follow and adjust PN orders on a daily basis. Thank you!
[2024-11-04] MEDS: LACTATED RINGER'S 900 ML IV SCH (16:19)
[2024-11-04] MEDS: HYDROmorphone INJ 1 MG/ML SYRINGE IV ONE (16:24)
--- NOTE | 2024-11-04 16:47 | Billing Data ---
Date of Service November 04, 2024 Coding Level of Care Code 16371 SUB INP/OBS CARE MIN
[2024-11-04] MEDS: [UNRECOGNIZED DRUG - OTHER] IV SCH (21:17)
[2024-11-04] MEDS: CENTRAL TPN IV SCH (21:17)
[2024-11-04] MEDS: CLINOLIPID 20% IV FAT EMULSION 250 ML IV SCH (21:18)
--- NOTE | 2024-11-05 13:18 | Hospitalist Progress Note ---
Date of Service November 05, 2024 Assessment & Plan (1) Abdominal pain, chronic, generalized: (2) Pain disorder: (3) History of seizures: Plan 34 yo female with a past medical history of gastroparesis with chronic abdominal pain s/p PEG and ostomy, hx SMA syndrome s/p multiple abdominal surgeries, chronic pain syndrome (at times requiring ketamine), pseudoseizures 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 Requires continued admission for pain management and optimization of daily pain regimen. ICU for ketamine drip now a viable option if pt chooses to go that route. Abdominal pain, acute on chronic - Ddx includes motility, adhesional, SMA obstruction - Patient with history of multiples (x3) abdominal surgery at [facility]. Last surgery performed on Jun [address] Green (transplant surgery). Next surgery schedule for December 15. Discussion with Dr. Green on 10/13 indicated no need for transfer at this time, while patient is hemodynamically stable w/ no signs of obstructions or infection. - Small Bowel Follow Through: "There is duodenal distention measuring up to 4 cm greatest diameter. There is apparent stricture at the distal duodenum and proximal jejunum at the midline, but the contrast progresses to the jejunum after mild delay. Contrast progresses to the right lower quadrant ostomy bag by 1 hour 20 minutes. Small bowel fold pattern is unremarkable. No other small bowel distention or stricture seen." - Findings read as consistent with hx of SMA syndrome [facility] Medical line - [phone] Dozier - her specific coordinator ([phone]) -[facility] was contacted on 10/21 to update on her condition and see if they think transfer is necessary/appropriate as pt having worsening pain/increasing analgesia need, as well as more G-tube and less ostomy output. Spoke with Dr. Green, who suggested completely open G-tube+ adding suction. He also mentioned their team had success with pain control using 5-10ug ketamine / hr for 72h - Will ask CM to pursue spinal cord stimulator (in the past, had good success with pain control on the SCS trial) - Pain management: - GI PHYSICIAN Dilaudid 0.50mg q10min prn - Continue Dilaudid 1 mg q2h prn, and 2mg qHS; Dilaudid 0.5mg q2h prn to alternate with 1mg q2 as needed for breakthrough pain - Ativan 1mg IV q6h changed to PRN for anxiety and nausea - Scheduled IV Tylenol - Continue fentanyl patch 50 mcg - discussed protocol for ketamine administration requiring transfer to ICU for monitoring. Pt wishes to hold off at this time and have pain managed on the PCU where she feels more comfortable Revisited this option after bout of significant abdominal pain this afternoon, endorses she would be willing to go to the ICU for ketamine if the pain were to become that severe again for longer periods or more frequently Of note, the ICU can now accommodate ketamine drip rather than just bolus/push dosing, which is more appealing to pt. Aware that they can decide to go there at any time and would be accepted - Continue Zofran q 6hr prn - Maintenance IVF with Lactated Ringers 100 ml/hr during day while TPN is not infusing - Continue eating home popsicles as tolerated - Back to gravity drainage when once having some better days PNES - Suspect increased in frequency due to uncontrolled pain & vasovagal response - No neuro deficit on exam, no postictal state observed after episode - Continue pain management as above - PCU for continues monitoring - Continue Ativan prn for nausea as above Severe protein-calorie malnutrition - Continue TPN - K+ also found to have increased from 3.8 on 10/21 to 5.0 on 10/22. Potassium stable. - Continue IVF as above - BMP with AM labs Visceral hyperalgesia - chronic pain management as above, supportive care, outpt surgery and pain management follow up POTS (postural orthostatic tachycardia syndrome) / Adrenal insufficiency - IV fluids, steroids (for adrenal insufficiency as well) Continue IV hydrocortisone 1:[address] of PO 15mg in AM and 10mg dose at 14:00 due to concern that pills have been found during ostomy bag suctioning - consider continue home steroids once BP has normalized vs wait until discharge Endometriosis - norethindrone, 0.35 mg, PO, qAM (patient's own oral contraceptive) during hospital stay FENGI - TPN / LR DVT prophylaxis - lovenox sq24 Dispo - Admit to PCU Admission and Anticipated Discharge Date Admission Date: October 12, 2024 Supervising Physician Co-Signing Physician Notes I personally examined the patient and verified all solorzano points of history and exam, discussed case, and agree with decision making with Dr Kyle gillespie doing reasonable today. tried Gtube to gravity - nursing later noted that she had to put back to suction due to worsening pain vitals noted very fatigued, nad. breathing unlabored no accessory muscles good effort skin no rashes no pallor or icterus intractable abdominal pain - improving again. short time of Gtube to gravity, but had to go back to suction - can try again 11/06 as long as stable. continue current care otherwise otherwise as above Subjective Pilar was seen and evaluated at bedside this AM, reports improvements in pain from the last few days. Still gets spasms of abdominal pain but these have been manageable on GI PHYSICIAN pump, and feels well enough to stay on the floor rather than ICU admit for pain management. Patient remains afebrile and hemodynamically stable. Patient denies overnight intense pain spells, dry heaves, or PNES episodes. Physical Exam Physical Exam: General: patient resting comfortably, NAD, non-toxic in appearance, answers questions appropriately. Skin: warm, dry, intact HEENT: NC/AT, anicteric sclera, conjunctiva without injection, moist mucus membranes. Heart: +S1/S2, regular, no m/r/g Lungs: equal air entry bilaterally, no rales/rhonchi/wheezes Abd: +BS, soft, ND, tenderness present diffusely on deep palpation Ext: warm, no clubbing/cyanosis or edema Neuro: nonfocal, speech intact, no facial droop, moving all extremities. Results & Data Results & Data Vital Signs (Past 12 Hours) Vital Signs Temp Pulse Pulse Pulse Resp BP BP 11/05/24 13:13 71 11/05/24 12:34 36.7 C 90 16 111/77 11/05/24 07:54 36.7 C 71 14 113/73 11/05/24 04:14 81 11/05/24 04:10 36.7 C 80 16 118/77 Pulse Ox O2 Del Method O2 Flow Rate 11/05/24 13:13 11/05/24 12:34 97 Nasal Cannula 0.5 11/05/24 07:54 100 Nasal Cannula 0.5 11/05/24 04:14 11/05/24 04:10 97 Nasal Cannula 2 Resident Activity Tracking Resident Involvement: Resident Care Provided Care Provided: Adult Hospital Medicine
--- NOTE | 2024-11-05 17:54 | Billing Data ---
Date of Service November 05, 2024 Coding Level of Care Code 73320 SUB INP/OBS CARE MIN
[2024-11-05] MEDS: [UNRECOGNIZED DRUG - OTHER] IV SCH (20:50)
[2024-11-05] MEDS: CENTRAL TPN IV SCH (20:50)
--- NOTE | 2024-11-06 10:43 | Hospitalist Progress Note ---
Date of Service November 06, 2024 Assessment & Plan (1) Abdominal pain, chronic, generalized: (2) Pain disorder: (3) History of seizures: Plan *11/06 update: doing better. hopefully can continue to self wean on SOFTWARE [employer]PLICATION[employer] DEVELOPER. "rough roadmap" of steps for home hopefully would be: -successfully keeping Gtube off suction (she lives w Gtube - but off suction) -initiating PO liquid oxycodone (what she takes for breakthrough pain at home) instead of IV dilauded prn dosing (would probably start with adding the PO oxy order but keeping the IV as backup, then dropping the IV as backup) -continuing to self wean from SOFTWARE APPLICATIONS DEVELOPER -doubt she will truly need to be "only what she can do at home" prior to dc g iven her self-awareness and unfortunate experience with acute on chronic pain hospitalizations - but more once she's doing enough w PO oxy/fentanyl patch that it seems things are reasonably close to what can be done at home ----after discharge she'll follow up with her surgeons at [facility] - planned procedure 12/15; also have been encouraging her to f/u w [facility] pain management for spinal cord stim since trial stim was so successful in the past (she had trial stimulator in, was helping - but then incidentally/unfortunately had skin breakdown at port site, and due to infection risk, trial stimulator lead had to be removed, and then for a number of factors the process to move to a permanent spinal cord stimulator fell through the cracks) 34 yo female with a past medical history of gastroparesis with chronic abdominal pain s/p PEG and ostomy, hx SMA syndrome s/p multiple abdominal surgeries, chronic pain syndrome (at times requiring ketamine), pseudoseizures 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 Requires continued admission for pain management and optimi zation of daily pain regimen. ICU for ketamine drip now a viable option if pt chooses to go that route. Abdominal pain, acute on chronic - Ddx includes motility, adhesional, SMA obstruction - Patient with history of multiples (x3) abdominal surgery at [facility]. Last surgery performed on Jun [address] Green (transplant surgery). Next surgery schedule for December 15. Discussion with Dr. Green on 5/29 indicated no need for transfer at this time, while patient is hemodynamically stable w/ no signs of obstructions or infection. - Small Bowel Follow Through: "There is duodenal distention measuring up to 4 cm greatest diameter. There is apparent stricture at the distal duodenum and proximal jejunum at the midline, but the contrast progresses to the jejunum after mild delay. Contrast progresses to the right lower quadrant ostomy bag by 1 hour 20 minutes. Small bowel fold pattern is unremarkable. No other small bowel distention or stricture seen." - Findings read as consistent with hx of SMA syndrome [facility] Medical line - [phone]. Tasia - her specific coordinator ([phone]) -[facility] was contacted on 10/21 to update on her condition and see if they think transfer is necessary/appropriate as pt having worsening pain/increasing analgesia need, as well as more G-tube and less ostomy output. Spoke with Dr. Green, who suggested completely open G-tube+ adding suction. He also mentioned their team had success with pain control using 5-10ug ketamine / hr for 72h - Will ask CM to pursue spinal cord stimulator (in the past, had good success with pain control on the SCS trial) - Pain management: - SOFTWARE APPLICATIONS DEVELOPER Dilaudid 0.50mg q10min prn - Continue Dilaudid 1 mg q2h prn, and 2mg qHS; Dilaudid 0.5mg q2h prn to alternate with 1mg q2 as needed for breakthrough pain - Ativan 1mg IV q6h changed to PRN for anxiety and nausea - Scheduled IV Tylenol - Continue fentanyl patch 50 mcg - discussed protocol for ketamine administration requiring transfer to ICU for monitoring. Pt wishes to hold off at this time and have pain managed on the PCU where she feels more comfortable Revisited this option after bout of significant abdominal pain this afternoon, endorses she would be willing to go to the ICU for ketamine if the pain were to become that severe again for longer periods or more frequently Of note, the ICU can now accommodate ketamine drip rather than just bolus/push dosing, which is more appealing to pt. Aware that they can decide to go there at any time and would be accepted - Continue Zofran q 6hr prn - Maintenance IVF with Lactated Ringers 100 ml/hr during day while TPN is not infusing - Continue eating home popsicles as tolerated - Back to gravity drainage when once having some better days PNES - Suspect increased in frequency due to uncontrolled pain & vasovagal response - No neuro deficit on exam, no postictal state observed after episode - Continue pain management as above - PCU for continues monitoring - Continue Ativan prn for nausea as above Severe protein-calorie malnutrition - Continue TPN - K+ also found to have increased from 3.8 on 10/21 to 5.0 on 10/22. Potassium stable. - Continue IVF as above - BMP with AM labs Visceral hyperalgesia - chronic pain management as above, supportive care, outpt surgery and pain management follow up POTS (postural orthostatic tachycardia syndrome) / Adrenal insufficiency - IV fluids, steroids (for adrenal insufficiency as well) Continue IV hydrocortisone 1:[address] of PO 15mg in AM and 10mg dose at 14:00 due to concern that pills have been found during ostomy bag suctioning - consider continue home steroids once BP has normalized vs wait until discharge Endometriosis - norethindrone, 0.35 mg, PO, qAM (patient's own oral contraceptive) during hospital stay [facility]ENGI - TPN / LR DVT prophylaxis - lovenox sq24 Dispo - Admit to PCU Admission and Anticipated Discharge Date Admission Date: October 12, 2024 Subjective feeling a little better, Gtube did have to go back to suction but now doing ok again. eating a popsicle - notes of course that the actual contents get suctioned out, but also is not having as much pain with peristalsis as before. feels like she's starting to turn the corner - asks about a roadmap towards getting out of the hospital and going home Review of Systems Review of Systems: All systems reviewed & are unremarkable except as noted in HPI & below Physical Exam Physical Exam: aao, pleasant, fatigued but eating second popsicle this AM and does not appear in pain/distress. nc at mmm breathing unlabored no accessory muscles good effort skin no rashes no pallor or icterus neuro no focal deficits Results & Data Results & Data Vital Signs (Past 12 Hours) Vital Signs Temp Pulse Pulse Resp BP Pulse Ox O2 Del Method 11/06/24 08:59 62 11/06/24 07:35 97.9 F 69 16 109/74 100 Nasal Cannula 11/06/24 03:31 98.1 F 67 18 113/78 97 Nasal Cannula O2 Flow Rate 11/06/24 08:59 11/06/24 07:35 2 11/06/24 03:31 2 PG Care Time/CCT Total # of Minutes Spent Total Time Spent with Patient: Total time spent is greater than 50% in coordination of care (as documented) at patient's floor/unit and/or counseling patient: Coding Level of Care Code 35409 SUB INP/OBS CARE 3/50MIN Diagnoses Abdominal pain, chronic, generalized R10.84; G89.29 Pain disorder R52 History of seizures Z87.898
[2024-11-06] MEDS: HYDROmorphone INJ 1 MG/ML SYRINGE IV STA (15:54)
[2024-11-06] MEDS: CENTRAL TPN IV SCH (21:36)
[2024-11-06] MEDS: [UNRECOGNIZED DRUG - OTHER] IV SCH (21:36)
[2024-11-06] MEDS: HYDROmorphone INJ 2 MG/ML SYR/VIAL IV PRN (23:05)
[2024-11-07 07:20] LABS: Anion Gap 4.0 (3-11); Blood Urea Nitrogen 24.0 mg/dl (6-23); Calcium 8.6 mg/dl (8.6-10.3); Carbon Dioxide 32.0 mmol/L (21-32); Chloride 106.0 mmol/L (98-107); Creatinine Clr Calc Pharmacy 114.6 ml/min; Glucose 87.0 mg/dl (70-99(Fasting)); Magnesium 2.1 mg/dl (1.7-2.4); Potassium 4.2 mmol/L (3.5-5.1); Sodium 142.0 mmol/L (136-145)
--- NOTE | 2024-11-07 07:44 | Hospitalist Progress Note ---
Date of Service November 07, 2024 Assessment & Plan (1) Abdominal pain, chronic, generalized: (2) Pain disorder: (3) History of seizures: Plan 34 yo female with a past medical history of gastroparesis with chronic abdominal pain s/p PEG and ostomy, hx SMA syndrome s/p multiple abdominal surgeries, chronic pain syndrome (at times requiring ketamine), pseudoseizures 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 Requires continued admission for pain management and optimization of daily pain regimen. ICU for ketamine drip now a viable option if pt chooses to go that route. Abdominal pain, acute on chronic - Ddx includes motility, adhesional, SMA obstruction - Patient with history of multiples (x3) abdominal surgery at [facility]. Last surgery performed on Jun [address] Green (transplant surgery). Next surgery schedule for December 15. Discussion with Dr. Green on 10/13 indicated no need for transfer at this time, while patient is hemodynamically stable w/ no signs of obstructions or infection. - Small Bowel Follow Through: "There is duodenal distention measuring up to 4 cm greatest diameter. There is apparent stricture at the distal duodenum and proximal jejunum at the midline, but the contrast progresses to the jejunum after mild delay. Contrast progresses to the right lower quadrant ostomy bag by 1 hour 20 minutes. Small bowel fold pattern is unremarkable. No other small bowel distention or stricture seen." - Findings read as consistent with hx of SMA syndrome [facility] Medical line - [phone] Dozier - her specific coordinator ([phone]) -[facility] was contacted on 10/21 to update on her condition and see if they think transfer is necessary/appropriate as pt having worsening pain/increasing analgesia need, as well as more G-tube and less ostomy output. Spoke with Dr. Green, who suggested completely open G-tube+ adding suction. He also mentioned their team had success with pain control using 5-10ug ketamine / hr for 72h - Will ask CM to pursue spinal cord stimulator (in the past, had good success with pain control on the SCS trial) - Pain management: - COMPONENT PREP OPERATOR Dilaudid 0.50mg q10min prn - Continue Dilaudid 1 mg q2h prn, and 2mg qHS; Dilaudid 0.5mg q2h prn to alternate with 1mg q2 as needed for breakthrough pain - Ativan 1mg IV q6h changed to PRN for anxiety and nausea - Scheduled IV Tylenol - Continue fentanyl patch 50 mcg - discussed protocol for ketamine administration requiring transfer to ICU for monitoring. Pt wishes to hold off at this time and have pain managed on the PCU where she feels more comfortable Revisited this option after bout of significant abdominal pain this afternoon, endorses she would be willing to go to the ICU for ketamine if the pain were to become that severe again for longer periods or more frequently Of note, the ICU can now accommodate ketamine drip rather than just bolus/push dosing, which is more appealing to pt. Aware that they can decide to go there at any time and would be accepted - Continue Zofran q 6hr prn - Maintenance IVF with Lactated Ringers 100 ml/hr during day while TPN is not infusing - Continue eating home popsicles as tolerated - Back to gravity drainage when once having some better days PNES - Suspect increased in frequency due to uncontrolled pain & vasovagal response - No neuro deficit on exam, no postictal state observed after episode - Continue pain management as above - PCU for continues monitoring - Continue Ativan prn for nausea as above Severe protein-calorie malnutrition - Continue TPN - K+ also found to have increased from 3.8 on 10/21 to 5.0 on 10/22. Potassium stable. - Continue IVF as above - BMP with AM labs Visceral hyperalgesia - chronic pain management as above, supportive care, outpt surgery and pain management follow up POTS (postural orthostatic tachycardia syndrome) / Adrenal insufficiency - IV fluids, steroids (for adrenal insufficiency as well) Continue IV hydrocortisone 1:[address] PO 15mg in AM and 10mg dose at 14:00 due to concern that pills have been found during ostomy bag suctioning - consider continue home steroids once BP has normalized vs wait until discharge Endometriosis - norethindrone, 0.35 mg, PO, qAM (patient's own oral contraceptive) during hospital stay FENGI - TPN / LR DVT prophylaxis - lovenox sq24 Dispo - Admit to PCU Admission and Anticipated Discharge Date Admission Date: October 12, 2024 Supervising Physician Co-Signing Physician Notes I personally examined the patient and verified solorzano points of history and exam, discussed case, and agree with decision making and plan documented by Dr. Wright. Patient reports G-tube remains off suction on gravity, monitoring output closely. Remains on Dilaudid COMPONENT PREP OPERATOR, discussed continued self spacing of dosing and trial of liquid oxycodone for breakthrough when she is ready. Subjective Patient feels like her abdominal pain comes in waves and that it is typically worsened when her G-tube is clamped. Physical Exam Physical Exam: General: patient resting comfortably, NAD, non-toxic in appearance, answers questions appropriately. Skin: warm, dry, intact HEENT: NC/AT, anicteric sclera, conjunctiva without injection, moist mucus membranes. Heart: +S1/S2, regular, no m/r/g Lungs: equal air entry bilaterally, no rales/rhonchi/wheezes Abd: +BS, soft, ND, tenderness present diffusely on deep palpation Ext: warm, no clubbing/cyanosis or edema Neuro: nonfocal, speech intact, no facial droop, moving all extremities. Results & Data Results & Data Vital Signs (Past 12 Hours) Vital Signs Temp Pulse Pulse Pulse Resp BP Pulse Ox 11/07/24 07:14 36.6 C 82 16 103/70 95 11/07/24 03:36 36.6 C 79 16 96/66 L 97 11/06/24 23:29 36.6 C 82 16 117/83 96 11/06/24 21:45 85 11/06/24 20:00 11/06/24 19:56 36.6 C 83 16 131/90 98 O2 Del Method O2 Flow Rate 11/07/24 07:14 Nasal Cannula 2 11/07/24 03:36 Nasal Cannula 2 11/06/24 23:29 Nasal Cannula 2 11/06/24 21:45 11/06/24 20:00 Nasal Cannula 2 11/06/24 19:56 Nasal Cannula 2 Resident Activity Tracking Resident Involvement: Resident Care Provided Care Provided: Adult Hospital Medicine
[2024-11-07] MEDS: CENTRAL TPN IV SCH (21:27)
[2024-11-07] MEDS: [UNRECOGNIZED DRUG - OTHER] IV SCH (21:27)
[2024-11-07] MEDS: CLINOLIPID 20% IV FAT EMULSION 250 ML IV SCH (21:32)
--- NOTE | 2024-11-08 07:59 | Hospitalist Progress Note ---
Date of Service November 08, 2024 Assessment & Plan (1) Abdominal pain, chronic, generalized: (2) Pain disorder: (3) History of seizures: Plan 34 yo female with a past medical history of gastroparesis with chronic abdominal pain s/p PEG and ostomy, hx SMA syndrome s/p multiple abdominal surgeries, chronic pain syndrome (at times requiring ketamine), pseudoseizures 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 Requires continued admission for pain management and optimization of daily pain regimen. ICU for ketamine drip now a viable option if pt chooses to go that route. Abdominal pain, acute on chronic - Ddx includes motility, adhesional, SMA obstruction - Patient with history of multiples (x3) abdominal surgery at [facility]. Last surgery performed on Jun [address] Green (transplant surgery). Next surgery schedule for December 15. Discussion with Dr. Green on 10/13 indicated no need for transfer at this time, while patient is hemodynamically stable w/ no signs of obstructions or infection. - Small Bowel Follow Through: "There is duodenal distention measuring up to 4 cm greatest diameter. There is apparent stricture at the distal duodenum and proximal jejunum at the midline, but the contrast progresses to the jejunum after mild delay. Contrast progresses to the right lower quadrant ostomy bag by 1 hour 20 minutes. Small bowel fold pattern is unremarkable. No other small bowel distention or stricture seen." - Findings read as consistent with hx of SMA syndrome [facility] Medical line - [phone] Dozier - her specific coordinator ([phone]) -[facility] was contacted on 10/21 to update on her condition and see if they think transfer is necessary/appropriate as pt having worsening pain/increasing analgesia need, as well as more G-tube and less ostomy output. Spoke with Dr. Green, who suggested completely open G-tube+ adding suction. He also mentioned their team had success with pain control using 5-10ug ketamine / hr for 72h - Will ask CM to pursue spinal cord stimulator (in the past, had good success with pain control on the SCS trial) - Pain management: - FINANCIAL SERVICES MANAGER Dilaudid 0.50mg q10min prn - Continue Dilaudid 1 mg q2h prn, and 2mg qHS; Dilaudid 0.5mg q2h prn to alternate with 1mg q2 as needed for breakthrough pain - Ativan 1mg IV q6h changed to PRN for anxiety and nausea - Scheduled IV Tylenol - Continue fentanyl patch 50 mcg - discussed protocol for ketamine administration requiring transfer to ICU for monitoring. Pt wishes to hold off at this time and have pain managed on the PCU where she feels more comfortable Revisited this option after bout of significant abdominal pain this afternoon, endorses she would be willing to go to the ICU for ketamine if the pain were to become that severe again for longer periods or more frequently Of note, the ICU can now accommodate ketamine drip rather than just bolus/push dosing, which is more appealing to pt. Aware that they can decide to go there at any time and would be accepted - Continue Zofran q 6hr prn - Maintenance IVF with Lactated Ringers 100 ml/hr during day while TPN is not infusing - Continue eating home popsicles as tolerated - Back to gravity drainage has improved abdominal pain - liquid oxycodone with fentanyl patch trial to be completed prior to d/c with d/c of dilaudid pain control PNES - Suspect increased in frequency due to uncontrolled pain & vasovagal response - No neuro deficit on exam, no postictal state observed after episode - Continue pain management as above - PCU for continues monitoring - Continue Ativan prn for nausea as above Severe protein-calorie malnutrition - Continue TPN - K+ also found to have increased from 3.8 on 10/21 to 5.0 on 10/22. Potassium stable. - Continue IVF as above - BMP with AM labs Visceral hyperalgesia - chronic pain management as above, supportive care, outpt surgery and pain management follow up POTS (postural orthostatic tachycardia syndrome) / Adrenal insufficiency - IV fluids, steroids (for adrenal insufficiency as well) Continue IV hydrocortisone 1:[address] PO 15mg in AM and 10mg dose at 14:00 due to concern that pills have been found during ostomy bag suctioning - consider continue home steroids once BP has normalized vs wait until discharge Endometriosis - norethindrone, 0.35 mg, PO, qAM (patient's own oral contraceptive) during hospital stay FENGI - TPN / LR DVT prophylaxis - lovenox sq24 Dispo - Admit to PCU Admission and Anticipated Discharge Date Admission Date: October 12, 2024 Supervising Physician Co-Signing Physician Notes I personally examined the patient and verified solorzano points of history and exam, discussed case, and agree with decision making and plan documented by Dr. Wright. Mother Malathi at bedside. Patient reports G-tube remains off suction on gravity. Remains on Dilaudid FINANCIAL SERVICES MANAGER with continued self spacing of dosing. Liquid oxycodone added for breakthrough and weaning of FINANCIAL SERVICES MANAGER. Subjective Patient feels like her abdominal pain comes in waves and that it is typically worsened when her G-tube is clamped. No acute complaints today, and reports that g-tube drainage to gravity rather than suction has improved abdominal pain. Patient discusses potentially using liquid oxy vs dissolvable for pain control upon d/c. Currently patient is amenable to working on pain control til surgery scheduled with [facility] on 12/15. Physical Exam Physical Exam: General: patient resting comfortably, NAD, non-toxic in appearance, answers questions appropriately. Skin: warm, dry, intact HEENT: NC/AT, anicteric sclera, conjunctiva without injection, moist mucus membranes. Heart: +S1/S2, regular, no m/r/g Lungs: equal air entry bilaterally, no rales/rhonchi/wheezes Abd: +BS, soft, ND, tenderness present diffusely on deep palpation Ext: warm, no clubbing/cyanosis or edema Neuro: nonfocal, speech intact, no facial droop, moving all extremities. Results & Data Results & Data Vital Signs (Past 12 Hours) Vital Signs Temp Pulse Pulse Resp BP Pulse Ox O2 Del Method 11/08/24 07:23 36.6 C 68 11 L 116/80 99 Nasal Cannula 11/08/24 07:01 62 11/08/24 05:40 36.7 C 79 10 L 108/75 97 Nasal Cannula 11/07/24 23:18 36.6 C 83 11 L 115/80 99 Nasal Cannula 11/07/24 22:55 Room Air 11/07/24 22:24 80 O2 Flow Rate 11/08/24 07:23 2 11/08/24 07:01 11/08/24 05:40 2 11/07/24 23:18 2 11/07/24 22:55 11/07/24 22:24 Resident Activity Tracking Resident Involvement: Resident Care Provided Care Provided: Adult Hospital Medicine
[2024-11-08 09:00] LABS: Hematocrit (blood only) 31.0 % (37.0-47.0); Hemoglobin 10.1 g/dl (12.0-16.0); Immature Granulocytes # (auto) 0.01 K/uL (0.01-0.20); Immature Granulocytes % (auto) 0.2 %; Mean Corpuscular Hemoglobin 30.0 pg (25.0-34.0); Mean Corpuscular Volume 92.0 fL (80.0-100.0); Platelet Count 218 K/uL (130-400); RDW Standard Deviation 49.1 fL (36.4-46.3); Red Blood Count 3.37 M/uL (4.20-5.40); White Blood Count 4.98 K/ul (4.8-10.8)
[2024-11-08 09:17] LABS: Anion Gap 4.0 (3-11); Calcium 8.6 mg/dl (8.6-10.3); Carbon Dioxide 32.0 mmol/L (21-32); Chloride 105.0 mmol/L (98-107); Potassium 3.9 mmol/L (3.5-5.1); Sodium 141.0 mmol/L (136-145)
[2024-11-08 09:23] LABS: Blood Urea Nitrogen 20.0 mg/dl (6-23); Creatinine Clr Calc Pharmacy 120.0 ml/min; Glucose 101.0 mg/dl (70-99(Fasting))
[2024-11-08] MEDS: ONDANSETRON INJ 2 MG/ML 2 ML VIAL IV STA (13:19)
[2024-11-08] MEDS: LACTATED RINGER'S 500 ML IV SCH (15:23)
[2024-11-08] MEDS: HYDROmorphone INJ 1 MG/ML SYRINGE IV ONE (21:47)
[2024-11-08] MEDS: CENTRAL TPN IV SCH (21:59)
[2024-11-08] MEDS: [UNRECOGNIZED DRUG - OTHER] IV SCH (21:59)
[2024-11-09 06:59] LABS: Hematocrit (blood only) 29.6 % (37.0-47.0); Hemoglobin 9.7 g/dl (12.0-16.0); Immature Granulocytes # (auto) 0.01 K/uL (0.01-0.20); Immature Granulocytes % (auto) 0.2 %; Mean Corpuscular Hemoglobin 29.8 pg (25.0-34.0); Mean Corpuscular Volume 91.1 fL (80.0-100.0); Platelet Count 217 K/uL (130-400); RDW Standard Deviation 49.2 fL (36.4-46.3); Red Blood Count 3.25 M/uL (4.20-5.40); White Blood Count 5.24 K/ul (4.8-10.8)
[2024-11-09 07:18] LABS: Anion Gap 3.0 (3-11); Blood Urea Nitrogen 20.0 mg/dl (6-23); Calcium 8.5 mg/dl (8.6-10.3); Carbon Dioxide 32.0 mmol/L (21-32); Chloride 106.0 mmol/L (98-107); Creatinine Clr Calc Pharmacy 123.9 ml/min; Glucose 90.0 mg/dl (70-99(Fasting)); Magnesium 2.0 mg/dl (1.7-2.4); Potassium 3.8 mmol/L (3.5-5.1); Sodium 141.0 mmol/L (136-145)
--- NOTE | 2024-11-09 14:29 | Pharmacy Report ---
Pharmacy PN Follow-up Note - Date of Service November 09, 2024 - Subjective Patient is currently on day # 27 of TPN for complex GI history, chronic home TPN. - Objective Height & Weight (Last Documented) Height 5 ft 6 in Weight 68 kg Diet Order(s) 10/12/24 12:33 NPO Intake & Ouput (24hrs) 11/08/24 11/09/24 11/10/24 06:59 06:59 06:59 Intake Total 2446.201 / 2446.201 3554.701 / 3554.701 572.367 / 572.367 Output Total 1500 / 1500 3425 / 3425 Balance 946.201 / 946.201 129.701 / 129.701 572.367 / 572.367 Selected Laboratory Results 11/09/24 06:29 Sodium 141 Potassium 3.8 Chloride 106 Carbon Dioxide 32 Anion Gap 3 BUN 20 Creatinine 0.61 BUN/Creatinine Ratio 32.8 H Glucose 90 Calcium 8.5 L Phosphorus 4.8 Magnesium 2.0 - Assessment & Plan Assessment: 11/09: * Electrolytes still stable, marked increase in Phos today from Thursday, will remove the small amount in TPN * Pilar appears to be tolerating MWF lipids at this time. * Continue with MWF labs for TPN adjustments 11/04: * No changes to TPN formulation after multiple days, will get labs MWF for assessment and adjustments now as long as they remain stable. * On Thursday, dietary discussed holding of lipids with patient, she is agreeable to try to resume, continue with 50gm MWF. 10/28: * Electrolytes stable and TPN not requiring any changes over past several days * Discussed with patient who would prefer to continuing holding lipids at this time, this is reasonable 10/27: * Labs mostly stable, no changes to TPN electrolytes in 48 hours, continue cyclic 18 hour TPN * Lipids planned for MWF, Pilar still requesting lipids to be held due to nausea from administration 10/25: * Labs continuing to be rather stable * Increase potassium content today as labs trending down and TPN prior to admission contained more * Monitor phosphate levels, continue with small amount today * Additional magnesium added as labs trending down and TPN prior to admission contained more * Pilar requested the lipids were held yesterday again, will continue with MWF lipids as tolerated, continue goal AA and dextrose. 10/21: * Labs largely stable, add back in small amount of phosphate, no other electrolyte adjustments to TPN today * Pilar still reporting nausea, small bowel follow through today. Requests lipids are held again. Typically MWF lipids. 10/18: * ANSELMO is a 34 year old female well known to pharmacy parenteral nutrition consult service (see medical/surgical history above). * Patient reports increased nausea and refused lipids last evening. Will hold again today and reassess tomorrow. * Electrolytes have been largely stable and WNL * Will adjust back to chloride>acetate * Monitor phosphate and remove/reduce if continued up-trend Plan: * For Day #18 of TPN administration, the following will be ordered: * Macronutrients: * Amino Acids: 96 grams/day * Dextrose: 168 grams/day * Lipids: 50 grams MWF * Micronutrients: * Sodium chloride: 50 mEq/day * Potassium chloride: 40 mEq/day * Potassium acetate: 40 mEq/day * Magnesium sulfate: 12.18 mEq/day * Calcium gluconate: 18.6 mEq/day * Multivitamins: held due to allergy * Trace elements: 1 mL/day * Thiamine: 100 mg/day * Total volume of 1306 mL will be infused over 18 hours and will provide 1255 kcal/day (MWF) and 955 kcal/day the other days. * Labs will be ordered per PN protocol. * Pharmacy will follow and adjust PN orders on a daily basis. Thank you!
[2024-11-09] MEDS: LACTATED RINGER'S 500 ML IV SCH (15:25)
--- NOTE | 2024-11-09 15:31 | Hospitalist Progress Note ---
Date of Service November 09, 2024 Assessment & Plan (1) Abdominal pain, chronic, generalized: (2) Pain disorder: (3) History of seizures: Plan 34 yo female with a past medical history of gastroparesis with chronic abdominal pain s/p PEG and ostomy, hx SMA syndrome s/p multiple abdominal surgeries, chronic pain syndrome (at times requiring ketamine), pseudoseizures 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 Requires continued admission for pain management and optimization of daily pain regimen. ICU for ketamine drip now a viable option if pt chooses to go that route. Abdominal pain, acute on chronic - Ddx includes motility, adhesional, SMA obstruction - Patient with history of multiples (x3) abdominal surgery at [facility]. Last surgery performed on Jun [address] Green (transplant surgery). Next surgery schedule for December 15. Discussion with Dr. Green on 10/13 indicated no need for transfer at this time, while patient is hemodynamically stable w/ no signs of obstructions or infection. - Small Bowel Follow Through: "There is duodenal distention measuring up to 4 cm greatest diameter. There is apparent stricture at the distal duodenum and proximal jejunum at the midline, but the contrast progresses to the jejunum after mild delay. Contrast progresses to the right lower quadrant ostomy bag by 1 hour 20 minutes. Small bowel fold pattern is unremarkable. No other small bowel distention or stricture seen." - Findings read as consistent with hx of SMA syndrome [facility] Medical line - [phone] Dozier - her specific coordinator ([phone]) -[facility] was contacted on 10/21 to update on her condition and see if they think transfer is necessary/appropriate as pt having worsening pain/increasing analgesia need, as well as more G-tube and less ostomy output. Spoke with Dr. Green, who suggested completely open G-tube+ adding suction. He also mentioned their team had success with pain control using 5-10ug ketamine / hr for 72h - Will ask CM to pursue spinal cord stimulator (in the past, had good success with pain control on the SCS trial) - Pain management: - FLOAT OPERATOR Dilaudid 0.50mg q10min prn - Continue Dilaudid 1 mg q2h prn, and 2mg qHS; Dilaudid 0.5mg q2h prn to alternate with 1mg q2 as needed for breakthrough pain - Ativan 1mg IV q6h changed to PRN for anxiety and nausea - Scheduled IV Tylenol - Continue fentanyl patch 50 mcg - discussed protocol for ketamine administration requiring transfer to ICU for monitoring. Pt wishes to hold off at this time and have pain managed on the PCU where she feels more comfortable Revisited this option after bout of significant abdominal pain this afternoon, endorses she would be willing to go to the ICU for ketamine if the pain were to become that severe again for longer periods or more frequently Of note, the ICU can now accommodate ketamine drip rather than just bolus/push dosing, which is more appealing to pt. Aware that they can decide to go there at any time and would be accepted - Continue Zofran q 6hr prn - Maintenance IVF with Lactated Ringers 100 ml/hr during day while TPN is not infusing - Continue eating home popsicles as tolerated - Back to gravity drainage has improved abdominal pain - liquid oxycodone with fentanyl patch trial to be completed prior to d/c with gradual wean of Dilaudid PRNs/EMERALD doses and FLOAT OPERATOR pump pain medications PNES - Suspect increased in frequency due to uncontrolled pain & vasovagal response - No neuro deficit on exam, no postictal state observed after episode - Continue pain management as above - PCU for continues monitoring - Continue Ativan prn for nausea as above Severe protein-calorie malnutrition - Continue TPN - K+ also found to have increased from 3.8 on 10/21 to 5.0 on 10/22. Potassium stable. - Continue IVF as above - BMP with AM labs Visceral hyperalgesia - chronic pain management as above, supportive care, outpt surgery and pain management follow up POTS (postural orthostatic tachycardia syndrome) / Adrenal insufficiency - IV fluids, steroids (for adrenal insufficiency as well) Continue IV hydrocortisone 1:[address] of PO 15mg in AM and 10mg dose at 14:00 due to concern that pills have been found during ostomy bag suctioning - consider continue home steroids once BP has normalized vs wait until discharge Endometriosis - norethindrone, 0.35 mg, PO, qAM (patient's own oral contraceptive) during hospital stay FENGI - TPN / LR DVT prophylaxis - lovenox sq24 Dispo - Admit to PCU Admission and Anticipated Discharge Date Admission Date: October 12, 2024 Supervising Physician Co-Signing Physician Notes I personally examined the patient and verified solorzano points of history and exam, discussed case, and agree with decision making and plan documented by Dr. Wright. Reviewed with patient continued efforts to wean FLOAT OPERATOR pump. Today was not a great day due to nausea and dryheaving. Overall, patient has been reducing FLOAT OPERATOR pump by self weaning and spacing out clicks. Encouraged use of oral oxycodone when able to reduce opioid burden. Reviewed with patient and her mother Malathi FIGUEROA mao. Will attempt to call Dr. Green at [facility] tomorrow ([phone]), unfortunately upcoming surgery is coordinated with another surgeon and moving up date may be challenging. Subjective Patient feels like her abdominal pain comes in waves and that it is typically worsened when her G-tube is clamped. No acute complaints today, and reports that g-tube drainage to gravity rather than suction has improved abdominal pain. Patient discusses potentially using liquid oxy vs dissolvable for pain control upon d/c. Currently patient is amenable to working on pain control til surgery scheduled with [facility] on 12/15. Physical Exam Physical Exam: General: patient resting comfortably, NAD, non-toxic in appearance, answers questions appropriately. Skin: warm, dry, intact HEENT: NC/AT, anicteric sclera, conjunctiva without injection, moist mucus membranes. Heart: +S1/S2, regular, no m/r/g Lungs: equal air entry bilaterally, no rales/rhonchi/wheezes Abd: +BS, soft, ND, tenderness present diffusely on deep palpation Ext: warm, no clubbing/cyanosis or edema Neuro: nonfocal, speech intact, no facial droop, moving all extremities. Results & Data Results & Data Vital Signs (Past 12 Hours) Vital Signs Temp Pulse Pulse Resp BP BP Pulse Ox 11/09/24 14:49 36.7 C 69 10 L 107/75 99 11/09/24 12:00 36.3 C L 75 12 109/75 100 11/09/24 08:15 11/09/24 07:38 36.5 C 60 10 L 110/76 99 11/09/24 07:00 53 L O2 Del Method O2 Flow Rate 11/09/24 14:49 Nasal Cannula 2 11/09/24 12:00 Nasal Cannula 2 11/09/24 08:15 Nasal Cannula 2 11/09/24 07:38 Nasal Cannula 2 11/09/24 07:00 Resident Activity Tracking Resident Involvement: Resident Care Provided Care Provided: Adult Hospital Medicine
[2024-11-09] MEDS: HYDROmorphone INJ 1 MG/ML SYRINGE IV PRN (19:02)
[2024-11-09] MEDS: CLINOLIPID 20% IV FAT EMULSION 250 ML IV SCH (20:33)
[2024-11-09] MEDS: AA 8%/D14W 2L 1,305 ML in Central TPN bag 0 ML IV SCH (20:34)
[2024-11-09] MEDS: HYDROmorphone INJ 2 MG/ML SYR/VIAL IV PRN (22:01)
[2024-11-10 09:56] LABS: Hematocrit (blood only) 31.8 % (37.0-47.0); Hemoglobin 10.6 g/dl (12.0-16.0); Immature Granulocytes # (auto) 0.01 K/uL (0.01-0.20); Immature Granulocytes % (auto) 0.2 %; Mean Corpuscular Hemoglobin 30.1 pg (25.0-34.0); Mean Corpuscular Volume 90.3 fL (80.0-100.0); Platelet Count 244 K/uL (130-400); RDW Standard Deviation 48.9 fL (36.4-46.3); Red Blood Count 3.52 M/uL (4.20-5.40); White Blood Count 4.69 K/ul (4.8-10.8)
[2024-11-10 10:11] LABS: Anion Gap 5.0 (3-11); Blood Urea Nitrogen 20.0 mg/dl (6-23); Calcium 8.7 mg/dl (8.6-10.3); Carbon Dioxide 32.0 mmol/L (21-32); Chloride 105.0 mmol/L (98-107); Creatinine Clr Calc Pharmacy 128.1 ml/min; Glucose 95.0 mg/dl (70-99(Fasting)); Potassium 4.1 mmol/L (3.5-5.1); Sodium 142.0 mmol/L (136-145)
[2024-11-10 12:08] LABS: Magnesium 2.1 mg/dl (1.7-2.4)
--- NOTE | 2024-11-10 16:21 | Hospitalist Progress Note ---
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 Requires continued admission for pain management and optimization of daily pain regimen. ICU for ketamine drip now a viable option if pt chooses to go that route. Abdominal pain, acute on chronic - Ddx includes motility, adhesional, SMA obstruction - Patient with history of multiples (x3) abdominal surgery at [facility]. Last surgery performed on Jun [address] Green (transplant surgery). Next surgery schedule for December 15. Discussion with Dr. Green on 10/13 indicated no need for transfer at this time, while patient is hemodynamically stable w/ no signs of obstructions or infection. - Small Bowel Follow Through: "There is duodenal distention measuring up to 4 cm greatest diameter. There is apparent stricture at the distal duodenum and proximal jejunum at the midline, but the contrast progresses to the jejunum after mild delay. Contrast progresses to the right lower quadrant ostomy bag by 1 hour 20 minutes. Small bowel fold pattern is unremarkable. No other small bowel distention or stricture seen." - Findings read as consistent with hx of SMA syndrome [facility] Medical line - [phone] Dozier - her specific coordinator ([phone]) -[facility] was contacted on 10/21 to update on her condition and see if they think transfer is necessary/appropriate as pt having worsening pain/increasing analgesia need, as well as more G-tube and less ostomy output. Spoke with Dr. Green, who suggested completely open G-tube+ adding suction. He also mentioned their team had success with pain control using 5-10ug ketamine / hr for 72h - Will ask CM to pursue spinal cord stimulator (in the past, had good success with pain control on the SCS trial) - Pain management: - ROCK MASON Dilaudid 0.50mg q10min prn - Continue Dilaudid 1 mg q2h prn, and 2mg qHS; Dilaudid 0.5mg q2h prn to alternate with 1mg q2 as needed for breakthrough pain - Ativan 1mg IV q6h changed to PRN for anxiety and nausea - Scheduled IV Tylenol - Continue fentanyl patch 50 mcg - discussed protocol for ketamine administration requiring transfer to ICU for monitoring. Pt wishes to hold off at this time and have pain managed on the PCU where she feels more comfortable Revisited this option after bout of significant abdominal pain this afternoon, endorses she would be willing to go to the ICU for ketamine if the pain were to become that severe again for longer periods or more frequently Of note, the ICU can now accommodate ketamine drip rather than just bolus/push dosing, which is more appealing to pt. Aware that they can decide to go there at any time and would be accepted - Continue Zofran q 6hr prn - Maintenance IVF with Lactated Ringers 100 ml/hr during day while TPN is not infusing - Continue eating home popsicles as tolerated - Back to gravity drainage has improved abdominal pain - liquid oxycodone with fentanyl patch trial to be completed prior to d/c with gradual wean of Dilaudid PRNs/EMERALD doses and ROCK MASON pump pain medications - Consider removal of ROCK MASON pump 11/11, and addition of EMERALD hydromorphone to limit pain during wean PNES - Suspect increased in frequency due to uncontrolled pain & vasovagal response - No neuro deficit on exam, no postictal state observed after episode - Continue pain management as above - PCU for continues monitoring - Continue Ativan prn for nausea as above Severe protein-calorie malnutrition - Continue TPN - K+ also found to have increased from 3.8 on 10/21 to 5.0 on 10/22. Potassium stable. - Continue IVF as above - BMP with AM labs Visceral hyperalgesia - chronic pain management as above, supportive care, outpt surgery and pain management follow up POTS (postural orthostatic tachycardia syndrome) / Adrenal insufficiency - IV fluids, steroids (for adrenal insufficiency as well) Continue IV hydrocortisone 1:[address] PO 15mg in AM and 10mg dose at 14:00 due to concern that pills have been found during ostomy bag suctioning - consider continue home steroids once BP has normalized vs wait until discharge Endometriosis - norethindrone, 0.35 mg, PO, qAM (patient's own oral contraceptive) during hospital stay FENGI - TPN / LR DVT prophylaxis - lovenox sq24 Dispo - Admit to PCU Admission and Anticipated Discharge Date Admission Date: October 12, 2024 Supervising Physician Co-Signing Physician Notes I personally examined the patient and verified solorzano points of history and exam, discussed case, and agree with decision making and plan documented by Dr. Wright. Patient hopeful to continue to wean opioid burden, reviewed consideration of discontinuing ROCK MASON and scheduling dilaudid. No changes made today. Patient utilizing liquid oxycodone and spacing doses. Attempted to update Dr. Jose David Green [facility] ([phone]). Subjective Patient feels like her abdominal pain comes in waves and that it is typically worsened when her G-tube is clamped. No acute complaints today, and reports that g-tube drainage to gravity rather than suction has improved abdominal pain. Patient discusses potentially using liquid oxy vs dissolvable for pain control upon d/c. Currently patient is amenable to working on pain control til surgery scheduled with [facility] on 12/15. Physical Exam Physical Exam: General: patient resting comfortably, NAD, non-toxic in appearance, answers questions appropriately. Skin: warm, dry, intact HEENT: NC/AT, anicteric sclera, conjunctiva without injection, moist mucus membranes. Heart: +S1/S2, regular, no m/r/g Lungs: equal air entry bilaterally, no rales/rhonchi/wheezes Abd: +BS, soft, ND, tenderness present diffusely on deep palpation Ext: warm, no clubbing/cyanosis or edema Neuro: nonfocal, speech intact, no facial droop, moving all extremities. Results & Data Results & Data Vital Signs (Past 12 Hours) Vital Signs Temp Pulse Pulse Resp BP Pulse Ox O2 Del Method 11/10/24 16:10 85 11/10/24 15:47 36.7 C 85 12 121/81 97 Nasal Cannula 11/10/24 11:17 36.4 C L 93 H 14 110/75 100 Nasal Cannula 11/10/24 09:40 82 11/10/24 09:40 Nasal Cannula 11/10/24 07:37 36.6 C 90 12 105/72 98 Nasal Cannula O2 Flow Rate 11/10/24 16:10 11/10/24 15:47 2 11/10/24 11:17 2 11/10/24 09:40 11/10/24 09:40 2 11/10/24 07:37 2 Resident Activity Tracking Resident Involvement: Resident Care Provided Care Provided: Adult [facility] Medicine
[2024-11-10] MEDS: AA 8%/D14W 2L 1,305 ML in Central TPN bag 0 ML IV SCH (21:07)
[2024-11-11 09:26] LABS: Hematocrit (blood only) 31.2 % (37.0-47.0); Hemoglobin 10.1 g/dl (12.0-16.0); Immature Granulocytes # (auto) 0.01 K/uL (0.01-0.20); Immature Granulocytes % (auto) 0.2 %; Mean Corpuscular Hemoglobin 29.7 pg (25.0-34.0); Mean Corpuscular Volume 91.8 fL (80.0-100.0); Platelet Count 212 K/uL (130-400); RDW Standard Deviation 49.7 fL (36.4-46.3); Red Blood Count 3.40 M/uL (4.20-5.40); White Blood Count 4.75 K/ul (4.8-10.8)
[2024-11-11 09:51] LABS: Alanine Aminotransferase 34.0 U/L (7-52); Alkaline Phosphatase 135.0 U/L (34-104); Anion Gap 5.0 (3-11); Bilirubin,Total 0.3 mg/dl (0.2-1.0); Blood Urea Nitrogen 24.0 mg/dl (6-23); Calcium 8.8 mg/dl (8.6-10.3); Carbon Dioxide 32.0 mmol/L (21-32); Chloride 105.0 mmol/L (98-107); Creatinine Clr Calc Pharmacy 109.6 ml/min; Glucose 113.0 mg/dl (70-99(Fasting)); Magnesium 2.1 mg/dl (1.7-2.4); Potassium 3.9 mmol/L (3.5-5.1); Sodium 142.0 mmol/L (136-145); Triglycerides 180.0 mg/dl (0-150)
--- NOTE | 2024-11-11 10:46 | Pharmacy Report ---
Pharmacy PN Follow-up Note - Date of Service November 11, 2024 - Subjective Patient is currently on day #29 of TPN for chronic home TPN. - Objective Height & Weight (Last Documented) Height 5 ft 6 in Weight 70.307 kg Diet Order(s) 10/12/24 12:33 NPO Intake & Ouput (24hrs) 11/10/24 11/11/24 11/12/24 06:59 06:59 06:59 Intake Total 1738.767 / 9345.940 8267.4 / 1323.4 Output Total 2150 / 2150 4200 / 4200 250 / 250 Balance -411.233 / -411.233 -2876.6 / -2876.6 -250 / -250 Selected Laboratory Results 11/10/24 11/11/24 09:32 09:15 Sodium 142 142 Potassium 4.1 3.9 Chloride 105 105 Carbon Dioxide 32 32 Anion Gap 5 5 BUN 20 24 H Creatinine 0.59 L 0.69 BUN/Creatinine Ratio 33.9 H 34.8 H Glucose 95 113 H Calcium 8.7 8.8 Phosphorus 4.6 5.0 H Magnesium 2.1 2.1 Total Bilirubin 0.3 AST 22 ALT 34 Alkaline Phosphatase 135 H Triglycerides 180 H - Assessment & Plan Assessment: 11/13: * Electrolytes largely stable, noted Phos slightly high, continue with no phosphate in TPN formulation * Triglycerides slightly high, but ok to continue with MWF lipids * MWF labs ok from a TPN adjusment perspective. 11/09: * Electrolytes still stable, marked increase in Phos today from Thursday, will remove the small amount in TPN * Pilar appears to be tolerating MWF lipids at this time. * Continue with MWF labs for TPN adjustments 11/04: * No changes to TPN formulation after multiple days, will get labs MWF for assessment and adjustments now as long as they remain stable. * On Thursday, dietary discussed holding of lipids with patient, she is agreeable to try to resume, continue with 50gm MWF. 10/28: * Electrolytes stable and TPN not requiring any changes over past several days * Discussed with patient who would prefer to continuing holding lipids at this t sanjuanita, this is reasonable 10/27: * Labs mostly stable, no changes to TPN electrolytes in 48 hours, continue cyclic 18 hour TPN * Lipids planned for MWF, Pilar still requesting lipids to be held due to nausea from administration 10/25: * Labs continuing to be rather stable * Increase potassium content today as labs trending down and TPN prior to admission contained more * Monitor phosphate levels, continue with small amount today * Additional magnesium added as labs trending down and TPN prior to admission contained more * Pilar requested the lipids were held yesterday again, will continue with MWF lipids as tolerated, continue goal AA and dextrose. 10/21: * Labs largely stable, add back in small amount of phosphate, no other electrolyte adjustments to TPN today * Pilar still reporting nausea, small bowel follow through today. Requests lipids are held again. Typically MWF lipids. 10/18: * ANSELMO is a 34 year old female well known to pharmacy parenteral nutrition consult service (see medical/surgical history above). * Patient reports increased nausea and refused lipids last evening. Will hold again today and reassess tomorrow. * Electrolytes have been largely stable and WNL * Will adjust back to chloride>acetate * Monitor phosphate and remove/reduce if continued up-trend Plan: * For Day #29 of TPN administration, the following will be ordered: * Macronutrients: * Amino Acids: 96 grams/day * Dextrose: 168 grams/day * Lipids: 50 grams MWF * Micronutrients: * Sodium chloride: 50 mEq/day * Potassium chloride: 40 mEq/day * Potassium acetate: 40 mEq/day * Magnesium sulfate: 12.18 mEq/day * Calcium gluconate: 18.6 mEq/day * Multivitamins: held due to allergy * Trace elements: 1 mL/day * Thiamine: 100 mg/day * Total volume of 1305 mL will be infused over 18 hours and will provide 1455 kcal/day (MWF) and 955 kcal/day the other days. * Labs will be ordered per PN protocol. * Pharmacy will follow and adjust PN orders on a daily basis. Thank you!
--- NOTE | 2024-11-11 10:49 | Hospitalist Progress Note ---
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 Requires continued admission for pain management and optimization of daily pain regimen. ICU for ketamine drip now a viable option if pt chooses to go that route. Abdominal pain, acute on chronic - Ddx includes motility, adhesional, SMA obstruction - Patient with history of multiples (x3) abdominal surgery at [facility]. Last surgery performed on Jun [address] Green (transplant surgery). Next surgery schedule for December 15. Discussion with Dr. Green on 10/13 - no need for transfer - [facility] Medical line - [phone]. Tasia - her specific coordinator ([phone]) -[facility] was contacted on 10/21 to update on her condition and see if they think transfer is necessary/appropriate as pt having worsening pain/increasing anal gesia need, as well as more G-tube and less ostomy output. Spoke with Dr. Green, who suggested completely open G-tube+ adding suction. He also mentioned their team had success with pain control using 5-10ug ketamine / hr for 72h - Will ask CM to pursue spinal cord stimulator (in the past, had good success with pain control on the SCS trial) - Small Bowel Follow Through: with duodenal distension and strictures x 2 throughout the tract, contrast does progress to ostomy site in ~80 mins - Pain management: - DC Dilaudid FLASK FITTER - Dilaudid 2mg IV qAM and qPM scheduled - Dilaudid 1mg IV q2h PRN - Oxycodone liquid PO TID @ 1000, 1400, 1800 scheduled - Ativan 1mg IV q6h changed to PRN for anxiety and nausea - Scheduled IV Tylenol - Continue fentanyl patch 75 mcg - Ketamine in ICU remains an option, ketamine drip is an option - Continue Zofran q 6hr prn - Maintenance IVF with Lactated Ringers 100 ml/hr during day while TPN is not infusing - Continue eating home popsicles as tolerated PNES - Incidence decreasing throughout admission, due to uncontrolled pain - No neuro deficit on exam, no postictal state observed after episode - Continue pain management as above - PCU for continues monitoring - Continue Ativan prn for nausea as above Severe protein-calorie malnutrition - Continue TPN per pharmacy - Continue to monitor electrolytes - Continue IVF as above - BMP with AM labs Visceral hyperalgesia - chronic pain management as above, supportive care, outpt surgery and pain management follow up POTS (postural orthostatic tachycardia syndrome) / Adrenal insufficiency - IV fluids, steroids (for adrenal insufficiency as well) Continue IV hydrocortisone 1:[address] of PO 15mg in AM and 10mg dose at 14:00 due to concern that pills have been found during ostomy bag suctioning - consider continue home steroids once BP has normalized vs wait until discharge Endometriosis - norethindrone, 0.35 mg, PO, qAM (patient's own oral contraceptive) during hospital stay FENGI - TPN / LR DVT prophylaxis - lovenox sq24 Dispo - Continued PCU stay Admission and Anticipated Discharge Date Admission Date: October 12, 2024 Supervising Physician Co-Signing Physician Notes I personally examined the patient and verified solorzano points of history and exam, discussed case, and agree with decision making and plan documented by Dr. Carty. FLASK FITTER discontinued. Scheduled IV hydromorphone AM and PM doses with oxycodone 15 mg TID, prn hydromorphone 1 mg for breakthrough. Patient has surgery planned at [facility] with Dr. Jose David Green [facility] ([phone]) December 15, 2024. Subjective Patient seen and evaluated at bedside this morning. No acute events overnight. States she did well overnight. Doing well this morning without acute complaints. VSS. Review of Systems Review of Systems: reviewed, per HPI Physical Exam Physical Exam: Constitutional: NAD HEENT: NCAT, no conjunctival injection CV: extremities well-perfused, no LE edema, port in place Resp: no increased work of breathing GI: nondistended, G tube in place, ostomy in place MSK: no gross deformities appreciated Skin: warm, dry, no rash appreciated Neuro: alert, oriented, no focal neurologic deficit appreciated Results & Data Results & Data Vital Signs (Past 12 Hours) Vital Signs Temp Pulse Pulse Resp BP BP Pulse Ox 11/11/24 07:53 36.7 C 84 19 105/73 98 11/11/24 07:23 72 11/11/24 03:09 36.7 C 79 14 100/66 97 11/11/24 00:00 92 H 11/11/24 00:00 11/10/24 23:05 36.7 C 83 14 113/78 98 O2 Del Method O2 Flow Rate 11/11/24 07:53 Nasal Cannula 2 11/11/24 07:23 11/11/24 03:09 Room Air 11/11/24 00:00 11/11/24 00:00 Nasal Cannula 2 11/10/24 23:05 Nasal Cannula 2 Resident Activity Tracking Resident Involvement: Resident Care Provided Care Provided: Adult Hospital Medicine
[2024-11-11] MEDS: ONDANSETRON INJ 2 MG/ML 2 ML VIAL IV PRN (17:21)
[2024-11-11] MEDS: AA 8%/D14W 2L 1,305 ML in Central TPN bag 0 ML IV SCH (21:48)
[2024-11-11] MEDS: CLINOLIPID 20% IV FAT EMULSION 250 ML IV SCH (21:49)
--- NOTE | 2024-11-12 09:00 | Hospitalist Progress Note ---
Date of Service November 12, 2024 Assessment & Plan (1) Abdominal pain, chronic, generalized: (2) Pain disorder: (3) History of seizures: Plan 34 yo female with a past medical history of gastroparesis with chronic abdominal pain s/p PEG and ostomy, hx SMA syndrome s/p multiple abdominal surgeries, chronic pain syndrome (at times requiring ketamine), pseudoseizures 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 Requires continued admission for pain management and optimization of daily pain regimen. ICU for ketamine drip now a viable option if pt chooses to go that route. Abdominal pain, acute on chronic - Ddx includes motility, adhesional, SMA obstruction - Patient with history of multiples (x3) abdominal surgery at [facility]. Last surgery performed on Jun [address] Green (transplant surgery). Next surgery schedule for December 15. Discussion with Dr[address] Green on 10/13 - no need for transfer - [facility] Medical line - [phone]. Tasia - her specific coordinator ([phone]) -[facility] was contacted on 10/21 to update on her condition and see if they think transfer is necessary/appropriate as pt having worsening pain/increasing anal gesia need, as well as more G-tube and less ostomy output. Spoke with Dr. Green, who suggested completely open G-tube+ adding suction. He also mentioned their team had success with pain control using 5-10ug ketamine / hr for 72h - Will ask CM to pursue spinal cord stimulator (in the past, had good success with pain control on the SCS trial) - Small Bowel Follow Through: with duodenal distension and strictures x 2 throughout the tract, contrast does progress to ostomy site in ~80 mins - Pain management: - DC Dilaudid HEALTH EDUCATION SPECIALIST - Dilaudid 2mg IV qAM and qPM scheduled - Dilaudid 1mg IV q2h PRN - Oxycodone liquid PO TID @ 1000, 1400, 1800 scheduled - Ativan 1mg IV q6h changed to PRN for anxiety and nausea - Scheduled IV Tylenol - Continue fentanyl patch 75 mcg - Ketamine in ICU remains an option, ketamine drip is an option - Continue Zofran q 6hr prn - Maintenance IVF with Lactated Ringers 100 ml/hr during day while TPN is not infusing - Continue eating home popsicles as tolerated - Will continue above plan with anticipation to wean IV medications over the next few days Calculated MME administered 1400 on 11/11 to 1400 on 11/12 = 297.5 (down from 351 MME in 24 hour period prior) PNES - Incidence decreasing throughout admission, due to uncontrolled pain - No neuro deficit on exam, no postictal state observed after episode - Continue pain management as above - PCU for continues monitoring - Continue Ativan prn for nausea as above Severe protein-calorie malnutrition - Continue TPN per pharmacy - Continue to monitor electrolytes - Continue IVF as above - BMP with AM labs Visceral hyperalgesia - chronic pain management as above, supportive care, outpt surgery and pain management follow up POTS (postural orthostatic tachycardia syndrome) / Adrenal insufficiency - IV fluids, steroids (for adrenal insufficiency as well) Continue IV hydrocortisone 1:[address] PO 15mg in AM and 10mg dose at 14:00 due to concern that pills have been found during ostomy bag suctioning - consider continue home steroids once BP has normalized vs wait until discharge Endometriosis - norethindrone, 0.35 mg, PO, qAM (patient's own oral contraceptive) during hospital stay FENGI - TPN / LR DVT prophylaxis - lovenox sq24 Dispo - Continued PCU stay Admission and Anticipated Discharge Date Admission Date: October 12, 2024 Supervising Physician Co-Signing Physician Notes I personally examined the patient and verified solorzano points of history and exam, discussed case, and agree with decision making and plan documented by Dr. Carty. Patient reports stability in patient on current regimen. HEALTH EDUCATION SPECIALIST discontinued yesterday. Scheduled IV hydromorphone AM and PM doses with PO liquid oxycodone 15 mg TID, prn IV hydromorphone 1 mg for breakthrough at present. Patient is hopeful for continued clinical improvement with hopes to return home next week. Patient has surgery planned at [facility] with Dr. Jose David Green [facility] ([phone]) December 15, 2024. Patient mother and father at bedside. Subjective Patient seen and evaluated at bedside this morning. No acute events overnight. Did well overnight off of HEALTH EDUCATION SPECIALIST and with new pain management schedule. No acute complaints this morning. VSS. Motivated to continue to wean MMEs and work toward discharge plan. Review of Systems Review of Systems: reviewed, per HPI Physical Exam Physical Exam: Constitutional: NAD HEENT: NCAT, no conjunctival injection CV: extremities well-perfused, no LE edema, port in place Resp: no increased work of breathing GI: nondistended, G tube in place, ostomy in place : guardado catheter in place MSK: no gross deformities appreciated Skin: warm, dry, no rash appreciated Neuro: alert, oriented, no focal neurologic deficit appreciated Results & Data Results & Data Vital Signs (Past 12 Hours) Vital Signs Temp Pulse Pulse Resp BP Pulse Ox O2 Del Method 11/12/24 07:41 36.7 C 67 20 105/70 97 Room Air 11/12/24 04:15 36.5 C 85 16 100/69 93 Room Air 11/11/24 22:25 36.5 C 86 18 119/86 97 Room Air 11/11/24 21:50 77
[2024-11-12] MEDS: LACTATED RINGER'S 1,000 ML IV SCH (09:15)
[2024-11-12] MEDS: DICYCLOMINE HCL 20 MG TAB PO SCH (09:46)
[2024-11-12] MEDS: AA 8%/D14W 2L 1,305 ML in Central TPN bag 0 ML IV SCH (21:06)
--- NOTE | 2024-11-13 08:44 | Hospitalist Progress Note ---
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 Requires continued admission for pain management and optimization of daily pain regimen. ICU for ketamine drip now a viable option if pt chooses to go that route. Abdominal pain, acute on chronic - Ddx includes motility, adhesional, SMA obstruction - Patient with history of multiples (x3) abdominal surgery at [facility]. Last surgery performed on Jun [address] Green (transplant surgery). Next surgery schedule for December 15. Discussion with Dr. Green on 10/13 - no need for transfer - [facility] Medical line - [phone]. Tasia - her specific coordinator ([phone]) -[facility] was contacted on 10/21 to update on her condition and see if they think transfer is necessary/appropriate as pt having worsening pain/increasing anal gesia need, as well as more G-tube and less ostomy output. Spoke with Dr. Green, who suggested completely open G-tube+ adding suction. He also mentioned their team had success with pain control using 5-10ug ketamine / hr for 72h - Will ask CM to pursue spinal cord stimulator (in the past, had good success with pain control on the SCS trial) - Small Bowel Follow Through: with duodenal distension and strictures x 2 throughout the tract, contrast does progress to ostomy site in ~80 mins - Pain management: - DC Dilaudid REAL ESTATE SALESPERSON - Dilaudid 2mg IV qAM and qPM scheduled - Dilaudid 1mg IV q2h PRN - Oxycodone liquid PO TID @ 1000, 1400, 1800 scheduled - Ativan 1mg IV q6h changed to PRN for anxiety and nausea - Scheduled IV Tylenol - Continue fentanyl patch 75 mcg - Ketamine in ICU remains an option, ketamine drip is an option - Continue Zofran q 6hr prn - Maintenance IVF with Lactated Ringers 100 ml/hr during day while TPN is not infusing - Continue eating home popsicles as tolerated - Will continue above plan with anticipation to wean IV medications over the next few days Calculated MME administered 1400 on 11/11 to 1400 on 11/12 = 297.5 (down from 351 MME in 24 hour period prior) No change to plan 11/13/24 PNES - Incidence decreasing throughout admission, due to uncontrolled pain - No neuro deficit on exam, no postictal state observed after episode - Continue pain management as above - PCU for continues monitoring - Continue Ativan prn for nausea as above Severe protein-calorie malnutrition - Continue TPN per pharmacy - Continue to monitor electrolytes - Continue IVF as above - BMP with AM labs Visceral hyperalgesia - chronic pain management as above, supportive care, outpt surgery and pain management follow up POTS (postural orthostatic tachycardia syndrome) / Adrenal insufficiency - IV fluids, steroids (for adrenal insufficiency as well) Continue IV hydrocortisone 1:[address] of PO 15mg in AM and 10mg dose at 14:00 due to concern that pills have been found during ostomy bag suctioning - consider continue home steroids once BP has normalized vs wait until discharge Endometriosis - norethindrone, 0.35 mg, PO, qAM (patient's own oral contraceptive) during hospital stay FENGI - TPN / LR DVT prophylaxis - lovenox sq24 Dispo - Continued PCU stay Admission and Anticipated Discharge Date Admission Date: October 12, 2024 Supervising Physician Co-Signing Physician Notes I personally examined the patient and verified solorzano points of history and exam, discussed case, and agree with decision making and plan documented by Dr. Carty. Patient with clinical improvement this week, REAL ESTATE SALESPERSON discontinued yesterday. Scheduled IV hydromorphone AM and PM doses with PO liquid oxycodone 15 mg TID, prn IV hydromorphone 1 mg for breakthrough at present. Reviewed consideration of changing AM and PM doses of IV Dilaudid to oxycodone. Patient has surgery planned at [facility] with Dr. Jose David Green [facility] ([phone]) December 15, 2024. Patient is hopeful for continued clinical improvement with hopes to return home next week. Subjective Patient seen and evaluated at bedside this morning. No acute events overnight. States did well again overnight with scheduled PO oxy and dilaudid IV, PRN dilaudid IV. No acute complaints. Review of Systems Review of Systems: reviewed, per HPI Physical Exam Physical Exam: Constitutional: NAD HEENT: NCAT, no conjunctival injection CV: extremities well-perfused, no LE edema, port in place Resp: no increased work of breathing GI: nondistended, G tube in place, ostomy in place : guardado catheter in place MSK: no gross deformities appreciated Skin: warm, dry, no rash appreciated Neuro: alert, oriented, no focal neurologic deficit appreciated Results & Data Results & Data Vital Signs (Past 12 Hours) Vital Signs Temp Pulse Pulse Resp BP BP Pulse Ox 11/13/24 07:43 36.6 C 62 20 108/75 97 11/13/24 03:32 36.6 C 76 20 103/71 95 11/12/24 23:12 36.7 C 75 20 100/72 97 11/12/24 22:02 79 O2 Del Method 11/13/24 07:43 Room Air 11/13/24 03:32 Room Air 11/12/24 23:12 Room Air 11/12/24 22:02 Resident Activity Tracking Resident Involvement: Resident Care Provided Care Provided: Adult Hospital Medicine
[2024-11-13] MEDS ORDERED: TPN/PPN CONSULT PHARMACY PRN (14:22)
[2024-11-13] MEDS: HYDROmorphone INJ 0.5 MG/0.5 ML SYR IV STA (17:33)
[2024-11-13] MEDS: AA 8%/D14W 2L 1,305 ML in Central TPN bag 0 ML IV SCH (21:21)
--- NOTE | 2024-11-14 07:53 | Hospitalist Progress Note ---
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 Requires continued admission for pain management and optimization of daily pain regimen. Currently weaning off IV pain control to po meds. Hopeful discharge on 11/15. Abdominal pain, acute on chronic - Ddx includes motility, adhesional, SMA obstruction - Patient with history of multiples (x3) abdominal surgery at [facility]. Last surgery performed on Jun [address] Green (transplant surgery). Next surgery schedule for December 15. Discussion with [address] Green on 10/13 - no need for transfer - [facility] Medical line - [phone]. Tasia - her specific coordinator ([phone]) -[facility] was contacted on 10/21 to update on her condition and see if they think transfer is necessary/appropriate as pt having worsening pain/increasing an algesia need, as well as more G-tube and less ostomy output. Spoke with Dr. Green, who suggested completely open G-tube+ adding suction. He also mentioned their team had success with pain control using 5-10ug ketamine / hr for 72h - Will ask CM to pursue spinal cord stimulator (in the past, had good success with pain control on the SCS trial) - Small Bowel Follow Through: with duodenal distension and strictures x 2 throughout the tract, contrast does progress to ostomy site in ~80 mins - Pain management: - DC Dilaudid CLOTH CUTTING INSPECTOR - Dilaudid 2mg IV qAM and qPM scheduled - Dilaudid 1mg IV q2h PRN - Oxycodone liquid PO TID @ 1000, 1400, 1800 scheduled - Ativan 1mg IV q6h changed to PRN for anxiety and nausea - Scheduled IV Tylenol - Continue fentanyl patch 75 mcg - Ketamine in ICU remains an option, ketamine drip is an option - Continue Zofran q 6hr prn - Maintenance IVF with Lactated Ringers 100 ml/hr during day while TPN is not infusing - Continue eating home popsicles as tolerated - Will continue above plan with anticipation to wean IV medications over the next few days - Calculated MME administered 12:00 on 11/13 to 12:00 on 11/14 = 300, comparable to 297.5 MME in the 24-hour period prior & down from 351 MME the day before that PNES - Incidence decreasing throughout admission, due to uncontrolled pain - No neuro deficit on exam, no postictal state observed after episode - Continue pain management as above - PCU for continues monitoring - Continue Ativan prn for nausea as above Severe protein-calorie malnutrition - Continue TPN per pharmacy - Continue to monitor electrolytes - Continue IVF as above - BMP with AM labs Visceral hyperalgesia - chronic pain management as above, supportive care, outpt surgery and pain management follow up POTS (postural orthostatic tachycardia syndrome) / Adrenal insufficiency - IV fluids, steroids (for adrenal insufficiency as well) Continue IV hydrocortisone 1:[address] PO 15mg in AM and 10mg dose at 14:00 due to concern that pills have been found during ostomy bag suctioning - consider continue home steroids once BP has normalized vs wait until discharge Endometriosis - norethindrone, 0.35 mg, PO, qAM (patient's own oral contraceptive) during hospital stay FENGI - TPN / LR DVT prophylaxis - lovenox sq24 Dispo - Continued PCU stay Admission and Anticipated Discharge Date Admission Date: October 12, 2024 Supervising Physician Co-Signing Physician Notes I personally examined the patient and verified all solorzano points of history and exam, discussed case, and agree with decision making with Dr cMmillan feeling better overall. Feeling like she might be up to going home. Mom discussed the concern on making sure that she has pain medicines prior to dischargeagreed this would obviously be quite reasonable. Patient notes less pain mediated pseudoseizure episodes over the last few days23 a day and very short-lived by comparison to previous episodes. Vitals noted, in general she is awake and alert fatigued but no distress. HEENT normocephalic atraumatic mucous membranes moist. Breathing unlabored no accessory muscle use good effort. Skin without rashes, current baseline pallor, no icterus. In regards to her pallorher hemoglobin is stable at her current baseline and her ferritin only about a month ago was 195 with a iron of 69. Acute exacerbation of chronic abdominal pain/visceral hyperalgesia/SMA syndrome/motility issuesslowly but surely doing better. Hopefully home in the next day or so. Sent in prescriptions for her oral oxycodone as well as fentanyl patches. Continue to follow, if doing better tomorrow and medications are in at her pharmacy, hopefully home then. Otherwise as above Subjective NAEO. Mom present at bedside. Pilar says she feels ok this morning. Having some abd pain, but says mornings are the worst. Still hopeful to go home tomorrow. No retching or emesis, no AVENDAÑO, f/c, CP, SOB, or dizziness. Review of Systems Review of Systems: reviewed, per HPI Physical Exam Constitutional: WD/WN, vitals as above well nourished, + ill appearing and cooperative Eyes: + anicteric sclerae ENMT: external ear and nose normal, oropharynx normal Respiratory: normal respiratory effort, lungs clear to auscultation Cardiovascular: RRR, no murmur, no edema Gastrointestinal (Abdomen): Inspection/Auscultation: abdomen normal to inspection, + abdomen distended and normal bowel sounds Percussion/Palpation: + abdomen tender and abdomen soft; no guarding, abdomen not rigid and no abdominal mass Musculoskeletal: no cyanosis or clubbing, extremities motor strength 5/5 Skin: no rashes, warm and dry Results & Data Results & Data Vital Signs (Past 12 Hours) Vital Signs Temp Pulse Pulse Resp BP Pulse Ox O2 Del Method 11/14/24 07:42 36.6 C 60 17 110/72 96 Room Air 11/14/24 04:00 36.6 C 84 18 97/68 L 95 Room Air 11/14/24 00:00 64 11/13/24 22:00 36.5 C 80 18 111/78 95 Room Air Resident Activity Tracking Resident Involvement: Resident Care Provided Care Provided: Adult Hospital Medicine
[2024-11-14 08:53] LABS: Anion Gap 4.0 (3-11); Blood Urea Nitrogen 23.0 mg/dl (6-23); Calcium 8.4 mg/dl (8.6-10.3); Carbon Dioxide 32.0 mmol/L (21-32); Chloride 104.0 mmol/L (98-107); Creatinine Clr Calc Pharmacy 137.5 ml/min; Glucose 86.0 mg/dl (70-99(Fasting)); Magnesium 2.0 mg/dl (1.7-2.4); Potassium 4.2 mmol/L (3.5-5.1); Sodium 140.0 mmol/L (136-145)
--- NOTE | 2024-11-14 17:05 | Billing Data ---
Date of Service November 14, 2024 Coding Level of Care Code 12385 SUB INP/OBS CARE MIN
[2024-11-14] MEDS: AA 8%/D14W 2L 1,305 ML in Central TPN bag 0 ML IV SCH (21:06)
[2024-11-14] MEDS: CLINOLIPID 20% IV FAT EMULSION 250 ML IV SCH (21:07)
--- NOTE | 2024-11-15 06:48 | Discharge Summary ---
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 Patient know to have pseudoseizures. This episodes seem to have a longer duration with bradycardia and hypoxia. She returned to her self after Oxygen was apply. Pain had been worsening in the last 2 weeks. Patient is being follow by [facility] [place] transplant Surgery Dr. Sarmiento and Dr. Verma. Had another abdominal surgery on June 28 where they remove her ovaries? . It seem that they plan to do another type of abdominal surgery soon, this is under scheduling at the moment. There is concern of MALS, which she recently got a vascular study, no results had been reported yet She denied any fever, chills, abdominal pain, runny nose, cough, sore throat. No sick contacts Principal Diagnosis SMA syndrome, gastroparesis, chronic pain Discharge Exam Constitutional WD/WN, vitals as above well nourished, + ill appearing and cooperative Eyes + anicteric sclerae ENMT external ear and nose normal, oropharynx normal Respiratory normal respiratory effort, lungs clear to auscultation Cardiovascular RRR, no murmur, no edema Gastrointestinal (Abdomen) Inspection/Auscultation: abdomen normal to inspection, + abdomen distended and normal bowel sounds Percussion/Palpation: + abdomen tender and abdomen soft; no guarding, abdomen not rigid and no abdominal mass Musculoskeletal no cyanosis or clubbing, extremities motor strength 5/5 Skin no rashes, warm and dry Discharge Data Allergies Allergy/AdvReac Type Severity Reaction Status Date / Time diphenhydramine Allergy Severe Anaphylaxis Verified 10/12/24 15:33 promethazine Allergy Severe hives, Verified 10/12/24 15:33 throat swelling adhesive Allergy Intermediate Redness of Verified 10/12/24 15:33 Skin amoxicillin Allergy Intermediate RASH Verified 10/12/24 15:33 azithromycin [From Zithromax] Allergy Intermediate RASH/VOMITI Verified 10/12/24 15:33 NG calcium Allergy Intermediate SEE COMMENT Verified 10/12/24 15:33 [From VIACTIV Multi-Vitamin] clavulanic acid Allergy Intermediate HIVES Verified 10/12/24 15:33 ferric carboxymaltose Allergy Intermediate Rash Verified 10/12/24 15:33 [From Injectafer] folic acid Allergy Intermediate SEE COMMENT Verified 10/12/24 15:33 [From VIACTIV Multi-Vitamin] iron [From Venofer] Allergy Intermediate Muscle Pain Verified 10/12/24 15:33 multivitamin with minerals Allergy Intermediate SEE COMMENT Verified 10/12/24 15:33 [From VIACTIV Multi-Vitamin] Penicillins Allergy Intermediate HIVES Verified 10/12/24 15:33 prochlorperazine Allergy Intermediate HIVES Verified 10/12/24 15:33 sulfamethoxazole Allergy Intermediate RASH Verified 10/12/24 15:33 sumatriptan Allergy Intermediate RASH Verified 10/12/24 15:33 trimethoprim Allergy Intermediate RASH Verified 10/12/24 15:33 ascorbic acid Allergy profiled Verified 10/13/24 11:39 from "external allergies" cefazolin Allergy cefazolin=ADR, Verified 10/13/24 11:38 cephalosporins=hives metoclopramide AdvReac Severe anxiety/ Verified 10/12/24 15:33 jittery morphine AdvReac Severe Severe Verified 10/12/24 15:33 abdominal Pain, sphincter of oddi spasms erythromycin base AdvReac Intermediate GI SYMPTOMS Verified 10/12/24 15:33 citalopram [From Celexa] AdvReac Unknown CAN'T Verified 10/12/24 15:33 REMEMBER latex AdvReac profiled Verified 10/13/24 11:38 from external allergies scopolamine AdvReac skin Verified 10/13/24 11:42 irritation,profiled from "external allergies" Consultations 10/12/24 15:03 ED Decision to Admit Stat Ordered Studies 10/12/24 12:37 CT abd pelvis IV con only Stat 10/21/24 16:08 FL small bowel follow through Routine Hospital Course (1) Abdominal pain, chronic, generalized: (2) Pain disorder: (3) History of seizures: Plan 34 yo female with a past medical history of gastroparesis with chronic abdominal pain s/p PEG and ostomy, hx SMA syndrome s/p multiple abdominal surgeries, chronic pain syndrome (at times requiring ketamine), pseudoseizures 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 Requires continued admission for pain management and optimization of daily pain regimen. Currently weaning off IV pain control to po meds. Hopeful discharge on 11/15. Abdominal pain, acute on chronic - Ddx includes motility, adhesional, SMA obstruction - Patient with history of multiples (x3) abdominal surgery at [facility]. Last surgery performed on Jun [address] Green (transplant surgery). Next surgery schedule for December 15. Discussion with Dr. Green on 10/13 - no need for transfer - [facility] Medical line - [phone]. Tasia - her specific coordinator ([phone]) - [facility] was contacted on 10/21 to update on her condition and see if they think transfer is necessary/appropriate as pt having worsening pain/increasing analgesia need, as well as more G-tube and less ostomy output. Spoke with Dr. Green, who suggested completely open G-tube+ adding suction. He also notes their team had success with pain control using 5-10ug ketamine / hr for 72hr - Small Bowel Follow Through: duodenal distension and strictures x 2 throughout the tract; contrast does progress to ostomy site in ~80 mins - Pain management while admitted: - At one point required DOCUMENT ANALYST with Dilaudid 0.75mg q10min prn - Dilaudid 2mg IV qAM and qPM scheduled - Dilaudid 1mg IV q2h PRN - Oxycodone liquid PO TID @ 1000, 1400, 1800 scheduled - Ativan 1mg IV q6h changed to PRN for anxiety and nausea - Scheduled IV Tylenol - Continue fentanyl patch 75 mcg - Ketamine in ICU remains an option, ketamine drip is an option - Pt also given Ativan, Zofran, TPN, and mIVF when TPN not infusing - Weaned off DOCUMENT ANALYST by discharge. Calculated MME administered 12:00 on 11/13 to 12:00 on 11/14 = 300 PNES - Incidence decreasing throughout admission; a/w uncontrolled pain - No neuro deficit on exam, no postictal state observed after episode - Continue pain management with po oxy and fentanyl patch - PCU for continues monitoring - Continue Ativan prn for nausea as above Severe protein-calorie malnutrition - Continue TPN Visceral hyperalgesia - Chronic pain management as above, supportive care, outpt surgery and pain man agement follow up POTS (postural orthostatic tachycardia syndrome) / Adrenal insufficiency - IV fluids, steroids (for adrenal insufficiency as well) Continue hydrocortisone PO 15mg in AM and 10mg dose at 14:00 due Some concern that pills have been found during ostomy bag suctioning Endometriosis - norethindrone, 0.35 mg, PO, qAM (patient's own oral contraceptive) during hospital stay FENGI - TPN / LR DVT prophylaxis - lovenox sq24 Dispo - PCU --> home Total Time Total Time Spent Total Time Spent (In Minutes): <30 Discharge Plan Discharge Items Patient Disposition: Home - Self-Care Reason For Visit: UNCONTROLLED ABDOMINAL PAIN Discharge Diagnosis: SMA syndrome, gastroparesis, chronic pain Condition on Discharge: Fair Activity: Resume your previous activity Non-emergency contact: Primary Care Provider and Surgeon Call non-emergency contact if: your symptoms worsen and your pain is not controlled Follow-up/Referrals: Mariah Addison DO [Primary Care Provider] - 11/24/24 8:25 am (Primary care hospital follow up scheduled on 11/24/[address] Shelton. Arrival time is 8:25) Diet: Other - See Diet Comment Diet Comment: Continue TPN Addtl Attending Provider Instructions: You were admitted to the hospital for uncontrolled abdominal pain. It was managed during admission with a combination of analgesics. You were deemed safe for discharge when you were able to wean off the DOCUMENT ANALYST and feel comfortable on oral pain meds Medications Your medication list has been reviewed and reconciled. An updated list is included with your discharge paperwork. Please review this list closely for any changes or anything you have questions about. Follow-up appointments: Make a follow-up appointment with your PCP within the next week. It is very important that you follow up with them shortly after discharge from the hospital, so they can stay updated on your hospitalization and potential changes in your care. Continue to follow up with your surgical team, with Dr. Sarmiento and Dr. Green at [facility] Keep all your follow-up appointments as already scheduled. If you cannot make an appointment, notify your provider. Thank you for allowing us to participate in your care. Pending Studies at Discharge: No Stand-Alone Forms: My [employer], Smoking Cessation Medications and DC Order Prescriptions: New fentanyl 75 mcg/hr patch 72 hour 1 patch transdermal Q72H Qty: 10 0RF Continued pyridoxine (vitamin B6) 50 mg tablet 50 mg PO QAM estradiol 0.025 mg/24 hr patch semiweekly 0.025 mg transdermal 2XWK Rx Instructions: CHANGES THURSDAYS & SUNDAYS lorazepam 2 mg/mL concentrate 1 mg PO DIRECTED PRN (Reason: ANXIETY/SLEEP) clindamycin phosphate 1 % gel 1 applic topical DIRECTED hydrocortisone 10 mg tablet See Rx Instructions .ROUTE .COMPLEX Hold Instructions: Resume on 10/27/22. Please take hydrocortisone 25mg in the morning and 20mg in the afternoon until your thursday followup with endocrinology Rx Instructions: TAKE 15 MG EVERY MORNING AND 10 MG EVERY AFTERNOON dicyclomine 10 mg Capsule 20 mg PO Q6H PRN (Reason: Abdominal Pain) pantoprazole [Protonix] 40 mg tablet,delayed release (DR/EC) 40 mg PO QAM methocarbamol 750 mg Tablet 750 mg PO TID cholecalciferol (vitamin D3) [Vitamin D3] 25 mcg (1,000 unit) Capsule 50 mcg PO QAM duloxetine 60 mg capsule,delayed release(DR/EC) 60 mg PO QAM ondansetron 8 mg tablet,disintegrating 8 mg PO TID PRN (Reason: Nausea) levothyroxine [Synthroid] 50 mcg tablet 50 mcg PO QAM fludrocortisone 0.1 mg tablet 0.1 mg PO BID acetaminophen [Tylenol Extra Strength] 500 mg Tablet 1,000 mg PO Q6H PRN (Reason: Pain) multivit with min-folic acid [Multivitamin Gummies] 200 mcg Tablet,Chewable 2 tab PO HS turmeric 400 mg Capsule 400 mg PO HS Rx Instructions: Takces 1 cap daily coenzyme Q10 [CoQ-10] 100 mg capsule 100 mg PO QPM Rx Instructions: Takes 1 tab daily gabapentin 250 mg/5 mL solution 900 mg PO TID 30 Days Qty: 1620 0RF oxycodone 20 mg/mL Concentrate 5 mg PO Q4H PRN (Reason: Pain, Moderate) Qty: 1260 0RF Held famotidine 40 mg tablet 20 mg PO BID Hold Instructions: Resume on 11/22/24. Rx Instructions: 1/2 tablet dose fexofenadine 180 mg Tablet 180 mg PO HS Hold Instructions: Resume on 11/22/24. Discontinued fentanyl 50 mcg/hr patch 72 hour 50 mcg transdermal Q72H Rx Instructions: NEEDS CHANGED 10/12/24 EVENING Discharge Orders: Discharge Order (Routine); Ordered 11/16/24 Ordered By: Mau Wright Admission Data Admit Date/Time: 10/12/24 15:54 Attending Provider: Ramses Layne Admit Provider: Corona Mcallister Primary Care Provider: Mariah Addison Other Providers: Venancio,Fax; Praneeth Romero. Other Interventions: Discharge Summary Assessment (RN) Last Done: 11/16/24 12:24 Supervising Physician Co-Signing Physician Notes I personally examined the patient and verified all solorzano points of history and exam, discussed case, and agree with decision making with Dr Mcmillan feeling better overall. feels up to going home. Vitals noted, in general she is awake and alert fatigued but no distress. HEENT normocephalic atraumatic mucous membranes moist. Breathing unlabored no accessory muscle use good effort. Skin without rashes, current baseline pallor although slightly better color today, no icterus. Acute exacerbation of chronic abdominal pain/visceral hyperalgesia/SMA syndrome/motility issuesslowly but surely doing better. stable for home. Ongoing pain control. Ongoing biopsychosocial approach. For surgery at the end of the month. Have been encouraging her to follow through with spinal cord stimulator as well. Informed PCP of her discharge today. Otherwise as above Resident Activity Tracking Resident Involvement: Resident Care Provided Care Provided: Adult Hospital Medicine
[2024-11-15] MEDS: HYDROmorphone INJ 2 MG/ML SYR/VIAL IV PRN (10:18)
[2024-11-15] MEDS: DICYCLOMINE HCL 20 MG TAB PO SCH (16:35)
--- NOTE | 2024-11-15 16:50 | Hospitalist Progress Note ---
Date of Service November 15, 2024 Assessment & Plan (1) Abdominal pain, chronic, generalized: (2) Pain disorder: (3) History of seizures: Plan 11/15 updatepain slightly worsenot yet up to going home. Ostomy changed with proactive 2 mg of Dilaudid. Hopefully home in the next day or so. For reassurance and supportive care as well. 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 Requires continued admission for pain management and optimization of daily pain regimen. Currently weaning off IV pain control to po meds. Hopeful discharge on 11/15. Abdominal pain, acute on chronic - Ddx includes motility, adhesional, SMA obstruction - Patient with history of multiples (x3) abdominal surgery at [facility]. Last surgery performed on Jun [address] Green (transplant surgery). Next surgery schedule for December 15. [address] Green on 10/13 - no need for transfer - [facility] Medical line - [phone]. Tasia - her specific coordinator ([phone]) -[facility] was contacted on 10/21 to update on her condition and see if they think transfer is necessary/appropriate as pt having worsening pain/increasing analgesia need, as well as more G-tube and less ostomy output. Spoke with Dr. Green, who suggested completely open G-tube+ adding suction. He also mentioned their team had success with pain control using 5-10ug ketamine / hr for 72h - Will ask CM to pursue spinal cord stimulator (in the past, had good success with pain control on the SCS trial) - Small Bowel Follow Through: with duodenal distension and strictures x 2 throughout the tract, contrast does progress to ostomy site in ~80 mins - Pain management: - DC Dilaudid INTERPRETIVE PROGRAM COORDINATOR - Dilaudid 2mg IV qAM and qPM scheduled - Dilaudid 1mg IV q2h PRN - Oxycodone liquid PO TID @ 1000, 1400, 1800 scheduled - Ativan 1mg IV q6h changed to PRN for anxiety and nausea - Scheduled IV Tylenol - Continue fentanyl patch 75 mcg - Ketamine in ICU remains an option, ketamine drip is an option - Continue Zofran q 6hr prn - Maintenance IVF with Lactated Ringers 100 ml/hr during day while TPN is not infusing - Continue eating home popsicles as tolerated - Will continue above plan with anticipation to wean IV medications over the next few days - Calculated MME administered 12:00 on 11/13 to 12:00 on 11/14 = 300, comparable to 297.5 MME in the 24-hour period prior & down from 351 MME the day before that PNES - Incidence decreasing throughout admission, due to uncontrolled pain - No neuro deficit on exam, no postictal state observed after episode - Continue pain management as above - PCU for continues monitoring - Continue Ativan prn for nausea as above Severe protein-calorie malnutrition - Continue TPN per pharmacy - Continue to monitor electrolytes - Continue IVF as above - BMP with AM labs Visceral hyperalgesia - chronic pain management as above, supportive care, outpt surgery and pain management follow up POTS (postural orthostatic tachycardia syndrome) / Adrenal insufficiency - IV fluids, steroids (for adrenal insufficiency as well) Continue IV hydrocortisone 1:[address] of PO 15mg in AM and 10mg dose at 14:00 due to concern that pills have been found during ostomy bag suctioning - consider continue home steroids once BP has normalized vs wait until discharge Endometriosis - norethindrone, 0.35 mg, PO, qAM (patient's own oral contraceptive) during hos pital stay FENGI - TPN / LR DVT prophylaxis - lovenox sq24 Dispo - Continued PCU stay Admission and Anticipated Discharge Date Admission Date: October 12, 2024 Subjective feeling a little Worse today. A bit of a rough night. Later revisitedostomy change was also quite painful. Does not yet feel up to leaving the hospital. Review of Systems Review of Systems: All systems reviewed & are unremarkable except as noted in HPI & below Physical Exam Physical Exam: In general she is awake and alert pleasant but fatigued no acute distress. HEENT normocephalic atraumatic mucous membranes moist. Breathing unlabored no accessory muscle use good effort. Skin without rashes or icterus, baseline state of pallor. Results & Data Results & Data Vital Signs (Past 12 Hours) Vital Signs Temp Pulse Pulse Resp BP Pulse Ox O2 Del Method 11/15/24 16:03 98.1 F 93 H 18 125/86 96 Room Air 11/15/24 14:11 66 11/15/24 12:04 97.9 F 75 17 118/77 95 Room Air 11/15/24 08:09 97.9 F 79 18 104/74 93 Room Air 11/15/24 08:00 82 PG Care Time/CCT Total # of Minutes Spent Total Time Spent with Patient: Total time spent is greater than 50% in coordination of care (as documented) at patient's floor/unit and/or counseling patient: Coding Level of Care Code 51124 SUB INP/OBS CARE 3/50MIN Diagnoses Abdominal pain, chronic, generalized R10.84; G89.29 Pain disorder R52 History of seizures Z87.898
--- NOTE | 2024-11-15 18:40 | Hospitalist Progress Note ---
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 Requires continued admission for pain management and optimization of daily pain regimen. Currently weaning off IV pain control to po meds. Hopeful discharge on 11/16. Abdominal pain, acute on chronic - Ddx includes motility, adhesional, SMA obstruction - Patient with history of multiples (x3) abdominal surgery at [facility]. Last surgery performed on Jun [address] Green (transplant surgery). Next surgery schedule for December 15. [address] Green on 10/13 - no need for transfer - [facility] Medical line - [phone]. Tasia - her specific coordinator ([phone]) -[facility] was contacted on 10/21 to update on her condition and see if they think transfer is necessary/appropriate as pt having worsening pain/increasing portia lgesia need, as well as more G-tube and less ostomy output. Spoke with Dr. Green, who suggested completely open G-tube+ adding suction. 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 - Dilaudid 2mg IV qAM and qPM scheduled - Dilaudid 1mg IV q2h PRN - Oxycodone liquid PO TID @ 1000, 1400, 1800 scheduled - Ativan 1mg IV q6h changed to PRN for anxiety and nausea - Scheduled IV Tylenol - Continue fentanyl patch 75 mcg - Ketamine in ICU remains an option, ketamine drip is an option - Continue Zofran q 6hr prn - Maintenance IVF with Lactated Ringers 100 ml/hr during day while TPN is not infusing - Continue eating home popsicles as tolerated - Will continue above plan with anticipation to wean IV medications over the next few days - Calculated MME administered 12:00 on 11/13 to 12:00 on 11/14 = 300, down from 351 MME in days prior PNES - Incidence decreasing throughout admission, due to uncontrolled pain - No neuro deficit on exam, no postictal state observed after episode - Continue pain management as above - PCU for continues monitoring - Continue Ativan prn for nausea as above Severe protein-calorie malnutrition - Continue TPN per pharmacy - Continue to monitor electrolytes - Continue IVF as above - BMP with AM labs Visceral hyperalgesia - chronic pain management as above, supportive care, outpt surgery and pain management follow up POTS (postural orthostatic tachycardia syndrome) / Adrenal insufficiency - IV fluids, steroids (for adrenal insufficiency as well) Continue IV hydrocortisone 1:[address] PO 15mg in AM and 10mg dose at 14:00 due to concern that pills have been found during ostomy bag suctioning - consider continue home steroids once BP has normalized vs wait until discharge Endometriosis - norethindrone, 0.35 mg, PO, qAM (patient's own oral contraceptive) during hospital stay FENGI - TPN / LR DVT prophylaxis - lovenox sq24 Dispo - Continued PCU stay Admission and Anticipated Discharge Date Admission Date: October 12, 2024 Supervising Physician Co-Signing Physician Notes see my note same date Subjective Had planned to go home today but feeling less confident today. Had a bit of a rough night and having pain this AM, requiring more analgesia again. Discussed anxiety component of pain, inherent to being discharge, which must be overcome; Mars and her mom seemed receptive. Plan for ostomy change today. Hopeful discharge tomorrow. Review of Systems Review of Systems: reviewed, per HPI Physical Exam Constitutional: WD/WN, vitals as above well nourished, + ill appearing and cooperative Eyes: + anicteric sclerae ENMT: external ear and nose normal, oropharynx normal Respiratory: normal respiratory effort, lungs clear to auscultation Cardiovascular: RRR, no murmur, no edema Gastrointestinal (Abdomen): Inspection/Auscultation: abdomen normal to inspection, + abdomen distended and normal bowel sounds Percussion/Palpation: + abdomen tender and abdomen soft; no guarding, abdomen not rigid and no abdominal mass Musculoskeletal: no cyanosis or clubbing, extremities motor strength 5/5 Skin: no rashes, warm and dry Results & Data Results & Data Vital Signs (Past 12 Hours) Vital Signs Temp Pulse Pulse Resp BP Pulse Ox O2 Del Method 11/15/24 16:03 36.7 C 93 H 18 125/86 96 Room Air 11/15/24 14:11 66 11/15/24 12:04 36.6 C 75 17 118/77 95 Room Air 11/15/24 08:09 36.6 C 79 18 104/74 93 Room Air 11/15/24 08:00 82 Resident Activity Tracking Resident Involvement: Resident Care Provided Care Provided: Adult Hospital Medicine
[2024-11-15] MEDS: HYDROmorphone INJ 2 MG/ML SYR/VIAL IV SCH (21:36)
[2024-11-15] MEDS: AA 8%/D14W 2L 1,305 ML in Central TPN bag 0 ML IV SCH (21:38)
[2024-11-16 06:36] LABS: Anion Gap 4.0 (3-11); Blood Urea Nitrogen 22.0 mg/dl (6-23); Calcium 8.4 mg/dl (8.6-10.3); Carbon Dioxide 32.0 mmol/L (21-32); Chloride 104.0 mmol/L (98-107); Creatinine Clr Calc Pharmacy 118.1 ml/min; Glucose 84.0 mg/dl (70-99(Fasting)); Magnesium 2.0 mg/dl (1.7-2.4); Potassium 4.0 mmol/L (3.5-5.1); Sodium 140.0 mmol/L (136-145)
[2024-11-16 11:48] VITALS: RESP 20; TEMP 97.5; O2SAT 96
[2024-11-16 12:26] VITALS: BP 102/71; PULSE 86
--- NOTE | 2024-11-16 15:36 | Billing Data ---
Date of Service November 16, 2024 Coding Level of Care Code 80522 IN/OBS DISCH 30 MIN/LESS
[2024-11-16] MEDS ORDERED: CLINOLIPID 20% IV FAT EMULSION 250 ML IV SCH (21:00)
[2024-11-16] MEDS ORDERED: AA 8%/D14W 2L 1,305 ML in Central TPN bag 0 ML IV SCH (21:00)
== END 2024-11-16 12:52 | disposition home or self-care (01) | DRG 393 ==
LOC: ED 12:09 → EDINP 15:54 → SUATTDRO 15:54 → 2S 16:02 → 3N 10-14 17:52 → 2S 10-20 19:56

== ENCOUNTER 2025-04-08 07:32 | Inpatient (IN) ==
[2025-04-08] MEDS: HYDROmorphone INJ 0.5 MG/0.5 ML SYR IV STA (08:17)
[2025-04-08] MEDS: SODIUM CHLORIDE 0.9% 1,000 ML IV ONE (08:17)
[2025-04-08] MEDS: ONDANSETRON INJ 2 MG/ML 2 ML VIAL IV STA (08:17)
--- NOTE | 2025-04-08 08:17 | Emergency Department Note ---
History of Present Illness General Chief complaint: Illness Stated complaint: CENTRAL LINE, FEVER, RIGORS, NAUSEA, VOMITING Time Seen by Provider: 04/08/25 07:56 History of Present Illness Provider complaint: Fever abdominal pain nausea Onset (ago): day(s) 1 Maximum Pain Intensity: 10 35-year-old female with history of G-tube, superior mesenteric artery syndrome, adrenal insufficiency, PNES, presents emergency department with fever and abdominal pain. Patient reports her fever began last night. She reports abdominal pain. Patient reports headache. Patient reports vomiting. No hematemesis or coffee-ground emesis. Home Medications Medication Instructions Recorded Confirmed Type dicyclomine 10 mg capsule 20 mg PO Q6H PRN Abdominal Pain 03/07/18 04/08/25 History pantoprazole 40 mg tablet,delayed 20 mg PO BID 09/08/19 04/08/25 History release (Protonix) famotidine 40 mg tablet 20 mg PO BID 11/28/19 04/08/25 History hydrocortisone 10 mg tablet 10 - 15 mg PO UD 02/07/20 04/08/25 History fexofenadine 180 mg tablet 180 mg PO HS 10/09/20 04/08/25 History fludrocortisone 0.1 mg tablet 0.1 mg PO BID 12/12/20 04/08/25 History acetaminophen 500 mg tablet 1,000 mg PO Q6H PRN Pain 06/13/21 04/08/25 History (Tylenol Extra Strength) multivitamin with minerals-folic 2 tab PO HS 06/13/21 04/08/25 History acid 200 mcg chewable tablet (Multivitamin Gummies) turmeric 400 mg capsule 400 mg PO HS 06/13/21 04/08/25 History cholecalciferol (vitamin D3) 25 50 mcg PO QAM 04/07/22 04/08/25 History mcg (1,000 unit) capsule (Vitamin D3) duloxetine 60 mg capsule,delayed 60 mg PO QAM 04/07/22 04/08/25 History release methocarbamol 750 mg tablet 750 mg PO TID 04/07/22 04/08/25 History coenzyme Q10 100 mg capsule 100 mg PO QPM 07/22/22 04/08/25 History (CoQ-10) pyridoxine (vitamin B6) 50 mg 50 mg PO QAM 07/22/22 04/08/25 History tablet ondansetron 8 mg disintegrating 8 mg PO TID PRN Nausea 10/06/22 04/08/25 History tablet levothyroxine 50 mcg tablet 50 mcg PO QAM 03/04/23 04/08/25 History (Synthroid) gabapentin 250 mg/5 mL oral 900 mg (18 mL) PO TID 30 days 12/15/23 04/08/25 Rx solution #1,620 mL clindamycin phosphate 1 % topical 1 applic topical DIRECTED 09/07/24 04/08/25 History gel estradiol 0.025 mg/24 hr 0.025 mg transdermal 2XWK 09/07/24 04/08/25 History semiweekly transdermal patch lorazepam 2 mg/mL oral concentrate 1 mg PO DIRECTED PRN 09/07/24 04/08/25 History ANXIETY/SLEEP oxycodone 20 mg/mL oral concentrate 5 mg (0.25 mL) PO Q4H PRN Pain, 11/14/24 04/08/25 Rx Moderate #1,260 mL fentanyl 50 mcg/hr transdermal 1 patch topical Q72H 04/08/25 04/08/25 History patch Allergies Allergy/AdvReac Type Severity Reaction Status Date / Time diphenhydramine Allergy Severe Anaphylaxis Verified 04/08/25 10:12 promethazine Allergy Severe hives, Verified 04/08/25 10:12 throat swelling adhesive Allergy Intermediate Redness of Verified 04/08/25 10:12 Skin azithromycin [From Zithromax] Allergy Intermediate RASH/VOMITI Verified 04/08/25 10:12 NG calcium Allergy Intermediate SEE COMMENT Verified 04/08/25 10:12 [From VIACTIV Multi-Vitamin] ferric carboxymaltose Allergy Intermediate Rash Verified 04/08/25 10:12 [From Injectafer] folic acid Allergy Intermediate SEE COMMENT Verified 04/08/25 10:12 [From VIACTIV Multi-Vitamin] iron [From Venofer] Allergy Intermediate Muscle Pain Verified 04/08/25 10:12 multivitamin with minerals Allergy Intermediate SEE COMMENT Verified 04/08/25 10:12 [From VIACTIV Multi-Vitamin] Penicillins Allergy Intermediate HIVES Verified 04/08/25 10:12 prochlorperazine Allergy Intermediate HIVES Verified 04/08/25 10:12 sulfamethoxazole Allergy Intermediate RASH Verified 04/08/25 10:12 sumatriptan Allergy Intermediate RASH Verified 04/08/25 10:12 trimethoprim Allergy Intermediate RASH Verified 04/08/25 10:12 ascorbic acid Allergy profiled Verified 04/08/25 10:12 from "external allergies" cefazolin Allergy cefazolin=ADR, Verified 04/08/25 10:12 cephalosporins=hives metoclopramide AdvReac Severe anxiety/ Verified 04/08/25 10:12 jittery morphine AdvReac Severe Severe Verified 04/08/25 10:12 abdominal Pain, sphincter of oddi spasms erythromycin base AdvReac Intermediate GI SYMPTOMS Verified 04/08/25 10:12 citalopram [From Celexa] AdvReac Unknown CAN'T Verified 04/08/25 10:12 REMEMBER latex AdvReac profiled Verified 04/08/25 10:12 from external allergies scopolamine AdvReac skin Verified 04/08/25 10:12 irritation,profiled from "external allergies" Past Med/Surg History Problem List (Updated 04/08/25 @ 17:07 by Mau Christine MD) SMAS (superior mesenteric artery syndrome) (Acute) Vomiting (Acute) Seizure-like activity (Acute) Septic pulmonary embolism MSSA bacteremia Port-A-Cath in place Discharge planning issues DVT prophylaxis Methicillin susceptible Staphylococcus aureus infection Central line infection Pseudomonas aeruginosa infection Visceral hyperalgesia Palliative care encounter Right ankle sprain (Acute) Encounter for care related to vascular access port Iron deficiency anemia Syncope Seizure-like activity Witnessed seizure-like activity (Acute) Hypokalemia (Acute) Malnutrition Transaminitis B12 deficiency Folate deficiency Diversion colitis Intestinal motility disorder (Chronic) Candidiasis of mouth and esophagus Severe protein-calorie malnutrition Abdominal pain, chronic, generalized (Chronic) Adrenal insufficiency On total parenteral nutrition (TPN) (Chronic) Acute kidney insufficiency Tachycardia (Acute) Acute dehydration (Acute) Epigastric abdominal pain (Acute) Chronic migraine without aura Hypokalemia Hypomagnesemia Hypokalemia Enteritis (Acute) Hypophosphatemia (Acute) Endometriosis has had 3 surgeries for this. Last surgery 2019 Jejunal intussusception Sinus tachycardia Hypotension Secondary hyperparathyroidism Hypocalcemia Diarrhea (Acute) Hypophosphatemia (Acute) Chronic migraine (Chronic) Anemia Gastroparesis Sphincter of Oddi spasm Fever Hypokalemia Vomiting (Acute) Urinary retention (Acute) UTI (urinary tract infection) (Acute) resolved S/P cholecystectomy 2015 Post-op pain (Acute) Hypotension Hemorrhagic cystitis (Acute) hx Head injury (Acute) Concussion (Acute) Bilious vomiting (Acute) Allergic reaction caused by a drug Allergic reaction Asthma (Chronic) Abnormal MRI, kidney (Acute) Acute right flank pain (Acute) Right flank pain (Acute) Bilateral flank pain (Acute) Appendicitis, acute (Acute 11/07/13) Medical History Acute dehydration RUQ abdominal pain Endometrioma of ovary Urinary dysfunction Abdominal pain Pain disorder Generalized abdominal pain Hx of Clostridium difficile infection 5 years ago, tx. 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 carroll, [facility] Spinal cord stimulator status trial implanted 03/02/23, in dr. ramírez's office>advised to bring remote Chronic, continuous use of opioids Difficult intravenous access Intractable pain Abdominal pain Elevated lipase Transaminitis Colitis Chronic malnutrition Intussusception hx PICC (peripherally inserted central catheter) in place TPN Pancreatitis hx Sphincter of Oddi dysfunction DECREASED GI MOTILITY Uses feeding tube gastroparesis and decreased GI motility can not tolerate feeding and uses TPN Epigastric abdominal pain Nausea Surgical History H/O bilateral oophorectomy History of removal of Port-a-Cath (12/03/23) Port Removal(Right) - Jr Collins, , FACS History of lysis of adhesions History of liver biopsy 2023 Hx of exploratory laparotomy History of esophagogastroduodenoscopy (EGD) Ileostomy status Hx of ileostomy Hx of colonoscopy during procedure perforated small bowel 10/27/2019 at [facility], subsequent repair of duodenal area. History of bowel resection Part of duodenum removed due to necrosis; done at [facility] 2019 History of removal of Port-a-Cath 10/13/[address] Geiger, [facility], due to bacteremia/sepsis.; "inserted and removed multiple times" History of hysterectomy 09/27/19 History of appendectomy History of vascular access device 2018; implanted and removed "several" times Family History Father Hyperlipidemia Other No significant family history Social History Smoking Status: Never smoker Second Hand Exposure: No; Do You Dip or Chew Tobacco: No; Hx Alcohol Use: No Hx Substance Use: No Preferred Language: Ivorian Communication Ability: Effective Visual Impairment: No Limitations Hearing Ability: Normal Digital Sales Director Required: No Beliefs That Will Affect Care: None marital status: Single Current Living Situation: Parent Current Living Situation Comment: Patient lives at home with both parents current occupational status: unemployed current occupation: completed 4-year degree at [employer] How many Children do You have: 0 Feels Safe at Home: Yes Diet: regular Sexual Activity Comment: not sexually active Assistive Devices: Crutches and Wheelchair Physical Exam Vital Signs Vital Signs - 24 hr 04/08/25 07:44 04/08/25 08:00 04/08/25 08:05 Temperature 39.4 C H Temperature Source Oral Pulse Rate 148 H 134 H 130 H Pulse Rate from SpO2 Sensor 133 H Pulse Rhythm Regular Respiratory Rate 25 H 17 16 Respiratory Effort / Characteristics Non-Labored Spontaneous Respiratory Depth Normal Blood Pressure 121/88 Blood Pressure Mean 99 Pulse Oximetry 95 94 94 Oxygen Delivery Method Room Air Room Air Sepsis Recent Fever Within 48 Hours Yes Sepsis New/Unexplained Change in Mental Status N/A Sepsis Action Taken by Nursing Physician Notified 04/08/25 08:13 04/08/25 08:15 04/08/25 08:21 Temperature Temperature Source Pulse Rate 136 H 134 H 123 H Pulse Rate from SpO2 Sensor 137 H Pulse Rhythm Respiratory Rate 20 22 Respiratory Effort / Characteristics Respiratory Depth Blood Pressure 126/86 Blood Pressure Mean 100 Pulse Oximetry 95 94 Oxygen Delivery Method Sepsis Recent Fever Within 48 Hours Sepsis New/Unexplained Change in Mental Status Sepsis Action Taken by Nursing 04/08/25 08:30 04/08/25 08:45 04/08/25 09:00 Temperature Temperature Source Pulse Rate 121 H 124 H 119 H Pulse Rate from SpO2 Sensor Pulse Rhythm Respiratory Rate 14 18 14 Respiratory Effort / Characteristics Respiratory Depth Blood Pressure 121/84 124/88 128/85 Blood Pressure Mean 94 98 94 Pulse Oximetry 93 95 94 Oxygen Delivery Method Room Air Room Air Room Air Sepsis Recent Fever Within 48 Hours Sepsis New/Unexplained Change in Mental Status Sepsis Action Taken by Nursing 04/08/25 09:09 04/08/25 09:33 04/08/25 09:45 Temperature 37.0 C Temperature Source Oral Pulse Rate 132 H 122 H Pulse Rate from SpO2 Sensor Pulse Rhythm Respiratory Rate 20 21 Respiratory Effort / Characteristics Respiratory Depth Blood Pressure 132/94 129/85 Blood Pressure Mean 100 102 Pulse Oximetry 96 95 Oxygen Delivery Method Room Air Room Air Sepsis Recent Fever Within 48 Hours Sepsis New/Unexplained Change in Mental Status Sepsis Action Taken by Nursing 04/08/25 10:00 04/08/25 10:15 04/08/25 10:30 Temperature Temperature Source Pulse Rate 116 H 112 H 111 H Pulse Rate from SpO2 Sensor Pulse Rhythm Respiratory Rate 19 21 14 Respiratory Effort / Characteristics Respiratory Depth Blood Pressure 114/82 118/85 121/86 Blood Pressure Mean 91 94 99 Pulse Oximetry 93 95 94 Oxygen Delivery Method Room Air Room Air Room Air Sepsis Recent Fever Within 48 Hours Sepsis New/Unexplained Change in Mental Status Sepsis Action Taken by Nursing 04/08/25 10:45 04/08/25 11:00 04/08/25 11:15 Temperature Temperature Source Pulse Rate 128 H 106 H 105 H Pulse Rate from SpO2 Sensor Pulse Rhythm Respiratory Rate 12 12 12 Respiratory Effort / Characteristics Respiratory Depth Blood Pressure 137/97 119/88 128/98 Blood Pressure Mean 109 97 105 Pulse Oximetry 94 96 97 Oxygen Delivery Method Room Air Other Room Air Sepsis Recent Fever Within 48 Hours Sepsis New/Unexplained Change in Mental Status Sepsis Action Taken by Nursing 04/08/25 11:30 04/08/25 11:45 04/08/25 12:00 Temperature Temperature Source Pulse Rate 111 H 122 H 115 H Pulse Rate from SpO2 Sensor Pulse Rhythm Respiratory Rate 17 20 14 Respiratory Effort / Characteristics Respiratory Depth Blood Pressure 126/87 127/93 126/93 Blood Pressure Mean 101 98 100 Pulse Oximetry 96 96 96 Oxygen Delivery Method Room Air Room Air Room Air Sepsis Recent Fever Within 48 Hours Sepsis New/Unexplained Change in Mental Status Sepsis Action Taken by Nursing 04/08/25 12:15 04/08/25 12:17 04/08/25 12:30 Temperature Temperature Source Pulse Rate 94 H 94 H 102 H Pulse Rate from SpO2 Sensor Pulse Rhythm Respiratory Rate 12 13 Respiratory Effort / Characteristics Respiratory Depth Blood Pressure 121/87 134/96 Blood Pressure Mean 98 112 Pulse Oximetry 95 95 Oxygen Delivery Method Room Air Room Air Sepsis Recent Fever Within 48 Hours Sepsis New/Unexplained Change in Mental Status Sepsis Action Taken by Nursing 04/08/25 12:45 04/08/25 13:00 04/08/25 13:15 Temperature Temperature Source Pulse Rate 93 H 91 H 92 H Pulse Rate from SpO2 Sensor Pulse Rhythm Respiratory Rate 12 14 14 Respiratory Effort / Characteristics Respiratory Depth Blood Pressure 128/90 126/87 122/86 Blood Pressure Mean 106 103 96 Pulse Oximetry 95 95 95 Oxygen Delivery Method Room Air Room Air Sepsis Recent Fever Within 48 Hours Sepsis New/Unexplained Change in Mental Status Sepsis Action Taken by Nursing 04/08/25 13:21 04/08/25 13:21 04/08/25 13:30 Temperature Temperature Source Pulse Rate 89 86 Pulse Rate from SpO2 Sensor 87 Pulse Rhythm Regular Respiratory Rate 15 15 Respiratory Effort / Characteristics Respiratory Depth Blood Pressure 127/91 Blood Pressure Mean 97 Pulse Oximetry 96 96 Oxygen Delivery Method Room Air Sepsis Recent Fever Within 48 Hours Sepsis New/Unexplained Change in Mental Status Sepsis Action Taken by Nursing 04/08/25 13:30 04/08/25 13:30 04/08/25 13:30 Temperature Temperature Source Pulse Rate Pulse Rate from SpO2 Sensor Pulse Rhythm Respiratory Rate Respiratory Effort / Characteristics Respiratory Depth Blood Pressure 127/91 127/91 127/91 Blood Pressure Mean 97 97 97 Pulse Oximetry Oxygen Delivery Method Sepsis Recent Fever Within 48 Hours Sepsis New/Unexplained Change in Mental Status Sepsis Action Taken by Nursing 04/08/25 13:30 04/08/25 13:30 04/08/25 13:42 Temperature Temperature Source Pulse Rate 91 H 84 Pulse Rate from SpO2 Sensor 90 84 Pulse Rhythm Respiratory Rate 20 22 Respiratory Effort / Characteristics Respiratory Depth Blood Pressure 127/91 Blood Pressure Mean 97 Pulse Oximetry 95 96 Oxygen Delivery Method Sepsis Recent Fever Within 48 Hours Sepsis New/Unexplained Change in Mental Status Sepsis Action Taken by Nursing 04/08/25 13:45 04/08/25 13:45 04/08/25 13:45 Temperature Temperature Source Pulse Rate Pulse Rate from SpO2 Sensor Pulse Rhythm Respiratory Rate Respiratory Effort / Characteristics Respiratory Depth Blood Pressure 116/80 116/80 116/80 Blood Pressure Mean 100 100 100 Pulse Oximetry Oxygen Delivery Method Sepsis Recent Fever Within 48 Hours Sepsis New/Unexplained Change in Mental Status Sepsis Action Taken by Nursing 04/08/25 13:45 04/08/25 13:45 04/08/25 13:45 Temperature Temperature Source Pulse Rate 84 Pulse Rate from SpO2 Sensor 84 Pulse Rhythm Respiratory Rate 19 Respiratory Effort / Characteristics Respiratory Depth Blood Pressure 116/80 116/80 Blood Pressure Mean 100 100 Pulse Oximetry 97 Oxygen Delivery Method Sepsis Recent Fever Within 48 Hours Sepsis New/Unexplained Change in Mental Status Sepsis Action Taken by Nursing 04/08/25 13:51 04/08/25 14:00 04/08/25 14:00 Temperature Temperature Source Pulse Rate 91 H Pulse Rate from SpO2 Sensor 90 Pulse Rhythm Respiratory Rate 20 Respiratory Effort / Characteristics Respiratory Depth Blood Pressure 137/103 H 137/103 H Blood Pressure Mean 117 117 Pulse Oximetry 97 Oxygen Delivery Method Sepsis Recent Fever Within 48 Hours Sepsis New/Unexplained Change in Mental Status Sepsis Action Taken by Nursing 04/08/25 14:00 04/08/25 14:00 04/08/25 14:00 Temperature Temperature Source Pulse Rate Pulse Rate from SpO2 Sensor Pulse Rhythm Respiratory Rate Respiratory Effort / Characteristics Respiratory Depth Blood Pressure 137/103 H 137/103 H 137/103 H Blood Pressure Mean 117 117 117 Pulse Oximetry Oxygen Delivery Method Sepsis Recent Fever Within 48 Hours Sepsis New/Unexplained Change in Mental Status Sepsis Action Taken by Nursing 04/08/25 14:00 04/08/25 14:12 04/08/25 14:30 Temperature Temperature Source Pulse Rate 103 H 93 H 100 H Pulse Rate from SpO2 Sensor 98 H 93 H 106 H Pulse Rhythm Respiratory Rate 19 24 29 H Respiratory Effort / Characteristics Respiratory Depth Blood Pressure Blood Pressure Mean Pulse Oximetry 99 99 98 Oxygen Delivery Method Sepsis Recent Fever Within 48 Hours Sepsis New/Unexplained Change in Mental Status Sepsis Action Taken by Nursing 04/08/25 14:42 04/08/25 14:51 04/08/25 14:54 Temperature Temperature Source Pulse Rate 93 H 106 H 116 H Pulse Rate from SpO2 Sensor 94 H 107 H 114 H Pulse Rhythm Respiratory Rate 25 H 25 H 23 Respiratory Effort / Characteristics Respiratory Depth Blood Pressure Blood Pressure Mean Pulse Oximetry 100 100 98 Oxygen Delivery Method Sepsis Recent Fever Within 48 Hours Sepsis New/Unexplained Change in Mental Status Sepsis Action Taken by Nursing 04/08/25 14:55 04/08/25 14:55 04/08/25 14:55 Temperature Temperature Source Pulse Rate Pulse Rate from SpO2 Sensor Pulse Rhythm Respiratory Rate Respiratory Effort / Characteristics Respiratory Depth Blood Pressure 131/99 131/99 131/99 Blood Pressure Mean 104 104 104 Pulse Oximetry Oxygen Delivery Method Sepsis Recent Fever Within 48 Hours Sepsis New/Unexplained Change in Mental Status Sepsis Action Taken by Nursing 04/08/25 14:55 04/08/25 14:55 04/08/25 15:00 Temperature Temperature Source Pulse Rate 110 H Pulse Rate from SpO2 Sensor 111 H Pulse Rhythm Respiratory Rate 20 Respiratory Effort / Characteristics Respiratory Depth Blood Pressure 131/99 131/99 Blood Pressure Mean 104 104 Pulse Oximetry 99 Oxygen Delivery Method Sepsis Recent Fever Within 48 Hours Sepsis New/Unexplained Change in Mental Status Sepsis Action Taken by Nursing 04/08/25 15:12 04/08/25 15:21 04/08/25 15:30 Temperature Temperature Source Pulse Rate 106 H 107 H 109 H Pulse Rate from SpO2 Sensor 106 H 107 H 109 H Pulse Rhythm Respiratory Rate 21 21 19 Respiratory Effort / Characteristics Respiratory Depth Blood Pressure Blood Pressure Mean Pulse Oximetry 97 98 97 Oxygen Delivery Method Sepsis Recent Fever Within 48 Hours Sepsis New/Unexplained Change in Mental Status Sepsis Action Taken by Nursing 04/08/25 15:42 04/08/25 15:51 04/08/25 16:34 Temperature Temperature Source Pulse Rate 112 H 108 H Pulse Rate from SpO2 Sensor 113 H 109 H Pulse Rhythm Respiratory Rate 22 22 Respiratory Effort / Characteristics Respiratory Depth Blood Pressure Blood Pressure Mean Pulse Oximetry 98 98 Oxygen Delivery Method Room Air Sepsis Recent Fever Within 48 Hours Sepsis New/Unexplained Change in Mental Status Sepsis Action Taken by Nursing Physical Exam HENT: Exam performed. - Head: Normocephalic and atraumatic. NECK: Normal range of motion. Neck supple. No JVD present. CV: Tachycardic rate, regular rhythm, normal heart sounds and intact distal pulses. There is no peripheral edema. Palpable radial pulses bue. PULM/CHEST: Effort normal and breath sounds normal. No respiratory distress. No stridor. no wheezes. no rales. ABD: The abdomen is soft. Feeding tube in place. NEURO: Motor and sensation grossly intact. SKIN: Ecchymosis over the bilateral lower extremities which the patient reports is from shaving. (Mother reports the patient has seen dermatology for this and is on clindamycin for this) Course Course 0756: The patient was evaluated in room B6. A complete history and physical exam was performed Cardiac monitoring: An order was placed for continuous cardiac monitoring. The monitor shows a rate of 130 with sinus tachycardia rhythm interpreted by me 1025: Vital signs stable. White blood cell count 6.7 hemoglobin 11.3 coagulation studies are unremarkable potassium 2.8 magnesium with in normal limits. Procalcitonin elevated 0.52. Patient empirically treated with antibiotics. Patient will be admitted to the [place] [facility]ist team. Administered Medications Hydromorphone HCl (Hydromorphone Inj 1 Mg/Ml Syringe) 1 mg IV Q2H PRN PRN Reason: Severe Pain (7,8,9,10) on NRS Stop: 04/22/25 12:00 Last Admin: 04/08/25 14:55 Dose: 1 mg Documented By: Admin: 04/08/25 12:19 Dose: 1 mg Documented By: KAMALJIT Famotidine (Pepcid 20mg Iv Push) 20 mg in 5 mls @ 2.5 mls/min IV Q12 EMERALD Stop: 05/08/25 15:29 Last Admin: 04/08/25 16:02 Dose: 2.5 mls/min Documented By: riccardo Miscellaneous (Check Fentanyl Patch Placement) 1 each N/A QS EMERALD Stop: 05/08/25 15:59 Last Admin: 04/08/25 16:06 Dose: 1 each Documented By: riccardo Ondansetron HCl (Ondansetron Inj 2 Mg/Ml 2 Ml Vial) 4 mg IV Q4H PRN PRN Reason: Nausea Stop: 05/08/25 15:23 Last Admin: 04/08/25 16:02 Dose: 4 mg Documented By: riccardo Discontinued Medications Hydromorphone HCl (Hydromorphone Inj 0.5 Mg/0.5 Ml Syr) 0.5 mg IV NOW STA Stop: 04/08/25 08:07 Last Admin: 04/08/25 08:17 Dose: 0.5 mg Documented By: NANI Hydromorphone HCl (Hydromorphone Inj 1 Mg/Ml Syringe) 1 mg IV NOW STA Stop: 04/08/25 09:43 Last Admin: 04/08/25 10:16 Dose: 1 mg Documented By: NANI Sodium Chloride (Nss) 1,000 mls @ 999 mls/hr IV .Q1H1M ONE Stop: 04/08/25 08:50 Last Infusion: 04/08/25 10:23 Dose: Infused Documented By: Admin: 04/08/25 08:17 Dose: 999 mls/hr Documented By: NANI Acetaminophen (Ofirmev) 1,000 mg in 100 mls @ 400 mls/hr IV NOW STA Stop: 04/08/25 08:04 Last Infusion: 04/08/25 09:09 Dose: Infused Documented By: Admin: 04/08/25 08:18 Dose: 400 mls/hr Documented By: NANI Potassium Chloride (K Larry / Wtr) 10 meq in 100 mls @ 100 mls/hr IV Q1H EMERALD Stop: 04/08/25 12:59 Last Admin: 04/08/25 13:21 Dose: 100 mls/hr Documented By: Infusion: 04/08/25 13:21 Dose: Infused Documented By: Admin: 04/08/25 12:15 Dose: 100 mls/hr Documented By: Infusion: 04/08/25 12:00 Dose: Infused Documented By: Admin: 04/08/25 11:00 Dose: 100 mls/hr Documented By: Infusion: 04/08/25 10:59 Dose: Infused Documented By: Admin: 04/08/25 09:37 Dose: 100 mls/hr Documented By: NANI Ceftriaxone Sodium (Rocephin) 1,000 mg in 50 mls @ 100 mls/hr IV NOW STA Stop: 04/08/25 10:53 Last Infusion: 04/08/25 11:42 Dose: Infused Documented By: Admin: 04/08/25 11:12 Dose: 100 mls/hr Documented By: NANI Vancomycin HCl 1,250 mg/ (Sodium Chloride) 525 mls @ 200 mls/hr IV NOW ONE Stop: 04/08/25 13:03 Last Admin: 04/08/25 16:07 Dose: 150 mls/hr Documented By: riccardo Sodium Chloride (Nss) 500 mls @ 100 mls/hr IV .Q5H EMERALD Stop: 04/08/25 16:14 Last Admin: 04/08/25 11:15 Dose: 100 mls/hr Documented By: NANI Piperacillin Sod/Tazobactam Sod (Zosyn) 4.5 gm in 100 mls @ 200 mls/hr IV NOW ONE Stop: 04/08/25 12:44 Last Admin: 04/08/25 13:01 Dose: 200 mls/hr Documented By: KAMALJIT Ioversol (Optiray 320 100ml) 93 ml IV ONCE ONE Stop: 04/08/25 09:27 Last Admin: 04/08/25 09:26 Dose: 93 ml Documented By: GILBERT Lorazepam (Lorazepam 1 Mg/1 Ml Syr Ed Inj Use) 0.5 mg IV ONE STA Stop: 04/08/25 12:02 Last Admin: 04/08/25 12:48 Dose: 0.5 mg Documented By: KAMALJIT Ondansetron HCl (Ondansetron Inj 2 Mg/Ml 2 Ml Vial) 4 mg IV NOW STA Stop: 04/08/25 08:08 Last Admin: 04/08/25 08:17 Dose: 4 mg Documented By: NANI Medical Decision Making Laboratory Data Attestation: I reviewed the patient's lab results. 04/08/25 08:33 04/08/25 08:10 Lab Results 04/08/25 04/08/25 04/08/25 Range/Units 08:10 08:33 08:42 WBC Cancelled 6.70 RBC Cancelled 3.79 L Hgb Cancelled 11.3 L POC Hgb 11.6 L (12.0-16.0) g/dl Hct Cancelled 33.4 L POC Hct 34 L (37-47) % MCV Cancelled 88.1 MCH Cancelled 29.8 MCHC Cancelled 33.8 RDW Std Deviation Cancelled 42.8 RDW Coeff of Tim Cancelled 13.2 Plt Count Cancelled 252 MPV Cancelled 9.8 Immature Gran % (Auto) Cancelled 0.3 Neut % (Auto) Cancelled 84.8 Lymph % (Auto) Cancelled 7.5 [place] % (Auto) Cancelled 7.3 Eos % (Auto) Cancelled 0.0 Baso % (Auto) Cancelled 0.1 Neut # (Auto) Cancelled 5.68 Lymph # (Auto) Cancelled 0.50 L [place] # (Auto) Cancelled 0.49 Eos # (Auto) Cancelled 0.00 Baso # (Auto) Cancelled 0.01 Immature Gran # (Auto) Cancelled 0.02 Absolute Nucleated RBC Cancelled Nucleated RBC % (auto) Cancelled Neutrophils % (Manual) Cancelled Band Neutrophils % Cancelled Lymphocytes % (Manual) Cancelled Prolymphocyte % Cancelled Reactive Lymphs % (Man) Cancelled Monocytes % (Manual) Cancelled Eosinophils % (Manual) Cancelled Basophils % (Manual) Cancelled Metamyelocytes % (Man) Cancelled Myelocytes % (Man) Cancelled Promyelocytes % (Man) Cancelled Blast Cells % (Manual) Cancelled Plasma Cell % (Manual) Cancelled Other Cells % Cancelled Nucleated RBC % Cancelled Neutrophils # (Manual) Cancelled Band Neutrophils # Cancelled Total Absolute Neuts Cancelled Lymphocytes # (Manual) Cancelled Prolymphocyte # Cancelled Reactive Lymphs # Cancelled Total Abs Lymphocytes Cancelled Monocytes # (Manual) Cancelled Eosinophils # (Manual) Cancelled Basophils # (Manual) Cancelled Metamyelocytes # (Man) Cancelled Myelocytes # (Manual) Cancelled Promyelocytes # (Man) Cancelled Blast Cells # (Man) Cancelled Plasma Cell # (Manual) Cancelled Other Cells # Cancelled Nucleated RBCs # (Man) Cancelled Hypersegmented Neuts Cancelled Hyposegmented Neuts Cancelled Hypogranular Neuts Cancelled Large Granular Lymphs Cancelled # Lrg Granular Lymphs Cancelled Hairy Cells Cancelled Smudge Cells Cancelled Toxic Granulation Cancelled Toxic Vacuolation Cancelled Dohle Bodies Cancelled Elie Rods Cancelled Platelet Estimate Cancelled Hypogranular Platelets Cancelled Giant Platelets Cancelled Platelet Satelliting Cancelled RBC Morphology Cancelled Polychromasia Cancelled Hypochromasia Cancelled Poikilocytosis Cancelled Basophilic Stippling Cancelled Anisocytosis Cancelled Microcytosis Cancelled Macrocytosis Cancelled Spherocytes Cancelled Pappenheimer Bodies Cancelled Sickle Cells Cancelled Target Cells Cancelled Tear Drop Cells Cancelled Ovalocytes Cancelled Stomatocytes Cancelled [place] Bodies Cancelled Echinocytes Cancelled Acanthocytes (Spur) Cancelled Rouleaux Cancelled RBC Agglutinates Cancelled Schistocytes Cancelled Sezary Cell Cancelled PT 11.4 (9.0-12.0) Seconds INR 1.1 (0.9-1.1) APTT 21 (21-31) Seconds PTT Ratio 0.8 VBG pH Cancelled VBG pCO2 Cancelled VBG pO2 Cancelled VBG HCO3 Cancelled VBG O2 Saturation Cancelled VBG Base Excess Cancelled Barometric Pressure Cancelled POC Sodium 137 (135-144) mmol/L Sodium 139 (136-145) mmol/L POC Potassium 2.4 L* (3.3-5.0) mmol/L Potassium 2.8 L (3.5-5.1) mmol/L POC Chloride 97 L (101-112) mmol/L Chloride 102 (98-107) mmol/L Carbon Dioxide 29 (21-32) mmol/L POC Total CO2 25 (24-31) mmol/L Anion Gap 8 (3-11) POC Anion Gap 19.0 (16-25) mmol/L POC BUN 3 L (7-18) mg/dl BUN 6 (6-23) mg/dl Creatinine 0.73 (0.6-1.2) mg/dl POC Creatinine 0.9 (0.6-1.3) mg/dl Est Cr Clr Drug Dosing 100.9 ml/min eGFR 111.29 BUN/Creatinine Ratio 8.2 L (10-20) Glucose 105 H (70-99(Fasting)) mg/dl POC Glucose (other) 106 H (70-99) mg/dl Lactate 1.2 (0.4-2.0) mmol/L Calcium 8.4 L (8.6-10.3) mg/dl POC Ioniz Calcium Evelyn 1.07 L (1.12-1.32) mmol/l Magnesium 1.7 (1.7-2.4) mg/dl Total Bilirubin 0.3 (0.2-1.0) mg/dl Direct Bilirubin 0.1 (0-0.2) mg/dl AST 26 (13-39) U/L ALT 18 (7-52) U/L Alkaline Phosphatase 92 (34-104) U/L Troponin I High Sens 3.6 (0-14) pg/ml Total Protein 6.4 (6.0-8.3) gm/dl Albumin 3.9 (3.4-5.0) gm/dl Lipase 12 (11-82) U/L Procalcitonin 0.52 H (0-0.5) ng/ml Urine Color Urine Appearance (Clear) Urine pH (4.5-7.5) Ur Specific Stephenson (1.000-1.030) Urine Protein (Negative) Urine Glucose (UA) (Negative) Urine Ketones (Negative) Urine Blood (Negative) Urine Nitrite (Negative) Urine Bilirubin (Negative) Urine Urobilinogen (Negative) Ur Leukocyte Esterase (Negative) Urine WBC (Auto) (0-5) /hpf Urine RBC (Auto) (0-2) /hpf U Hyaline Cast (Auto) (0-2) /lpf U Epithel Cells (Auto) (0-2) /hpf Urine Bacteria (Auto) (None Seen) Urine Comment Adenovirus (PCR) Not Detected (NotDetected) B. pertussis DNA (PCR) Not Detected (NotDetected) B.parapertussis DNA PCR Not Detected (NotDetected) C. pneumoniae DNA (PCR) Not Detected (NotDetected) Coronavirus OC43 (PCR) Not Detected (NotDetected) Coronavirus HKU1 (PCR) Not Detected (NotDetected) Coronavirus 229E (PCR) Not Detected (NotDetected) SARS-CoV-2 (PCR) Not Detected (NotDetected) Coronavirus NL63 (PCR) Not Detected (NotDetected) Human Metapneumovir PCR Not Detected (NotDetected) Influenza Type A (PCR) Not Detected (NotDetected) Influenza Type B (PCR) Not Detected (NotDetected) M. pneumoniae (PCR) Not Detected (NotDetected) Parainfluenza 1 (PCR) Not Detected (NotDetected) Parainfluenza 2 (PCR) Not Detected (NotDetected) Parainfluenza 3 (PCR) Not Detected (NotDetected) Parainfluenza 4 (PCR) Not Detected (NotDetected) RSV (PCR) Not Detected (NotDetected) Entero/Rhino (PCR) Not Detected (NotDetected) Blood Parasites ID Cancelled 04/08/25 04/08/25 Range/Units 08:57 09:41 WBC RBC Hgb POC Hgb (12.0-16.0) g/dl Hct POC Hct (37-47) % MCV MCH MCHC RDW Std Deviation RDW Coeff of Tim Plt Count MPV Immature Gran % (Auto) Neut % (Auto) Lymph % (Auto) [place] % (Auto) Eos % (Auto) Baso % (Auto) Neut # (Auto) Lymph # (Auto) [place] # (Auto) Eos # (Auto) Baso # (Auto) Immature Gran # (Auto) Absolute Nucleated RBC Nucleated RBC % (auto) Neutrophils % (Manual) Band Neutrophils % Lymphocytes % (Manual) Prolymphocyte % Reactive Lymphs % (Man) Monocytes % (Manual) Eosinophils % (Manual) Basophils % (Manual) Metamyelocytes % (Man) Myelocytes % (Man) Promyelocytes % (Man) Blast Cells % (Manual) Plasma Cell % (Manual) Other Cells % Nucleated RBC % Neutrophils # (Manual) Band Neutrophils # Total Absolute Neuts Lymphocytes # (Manual) Prolymphocyte # Reactive Lymphs # Total Abs Lymphocytes Monocytes # (Manual) Eosinophils # (Manual) Basophils # (Manual) Metamyelocytes # (Man) Myelocytes # (Manual) Promyelocytes # (Man) Blast Cells # (Man) Plasma Cell # (Manual) Other Cells # Nucleated RBCs # (Man) Hypersegmented Neuts Hyposegmented Neuts Hypogranular Neuts Large Granular Lymphs # Lrg Granular Lymphs Hairy Cells Smudge Cells Toxic Granulation Toxic Vacuolation Dohle Bodies Elie Rods Platelet Estimate Hypogranular Platelets Giant Platelets Platelet Satelliting RBC Morphology Polychromasia Hypochromasia Poikilocytosis Basophilic Stippling Anisocytosis Microcytosis Macrocytosis Spherocytes Pappenheimer Bodies Sickle Cells Target Cells Tear Drop Cells Ovalocytes Stomatocytes [place] Bodies Echinocytes Acanthocytes (Spur) Rouleaux RBC Agglutinates Schistocytes Sezary Cell PT (9.0-12.0) Seconds INR (0.9-1.1) APTT (21-31) Seconds PTT Ratio VBG pH 7.44 H VBG pCO2 42 VBG pO2 79 VBG HCO3 29 VBG O2 Saturation 97.9 VBG Base Excess 3.9 Barometric Pressure POC Sodium (135-144) mmol/L Sodium (136-145) mmol/L POC Potassium (3.3-5.0) mmol/L Potassium (3.5-5.1) mmol/L POC Chloride (101-112) mmol/L Chloride (98-107) mmol/L Carbon Dioxide (21-32) mmol/L POC Total CO2 (24-31) mmol/L Anion Gap (3-11) POC Anion Gap (16-25) mmol/L POC BUN (7-18) mg/dl BUN (6-23) mg/dl Creatinine (0.6-1.2) mg/dl POC Creatinine (0.6-1.3) mg/dl Est Cr Clr Drug Dosing ml/min eGFR BUN/Creatinine Ratio (10-20) Glucose (70-99(Fasting)) mg/dl POC Glucose (other) (70-99) mg/dl Lactate (0.4-2.0) mmol/L Calcium (8.6-10.3) mg/dl POC Ioniz Calcium Evelyn (1.12-1.32) mmol/l Magnesium (1.7-2.4) mg/dl Total Bilirubin (0.2-1.0) mg/dl Direct Bilirubin (0-0.2) mg/dl AST (13-39) U/L ALT (7-52) U/L Alkaline Phosphatase (34-104) U/L Troponin I High Sens (0-14) pg/ml Total Protein (6.0-8.3) gm/dl Albumin (3.4-5.0) gm/dl Lipase (11-82) U/L Procalcitonin (0-0.5) ng/ml Urine Color Yellow Urine Appearance Clear (Clear) Urine pH 6.5 (4.5-7.5) Ur Specific Stephenson 1.008 (1.000-1.030) Urine Protein Negative (Negative) Urine Glucose (UA) Negative (Negative) Urine Ketones Negative (Negative) Urine Blood Negative (Negative) Urine Nitrite Negative (Negative) Urine Bilirubin Negative (Negative) Urine Urobilinogen Negative (Negative) Ur Leukocyte Esterase Trace H (Negative) Urine WBC (Auto) 0-5 (0-5) /hpf Urine RBC (Auto) 0-2 (0-2) /hpf U Hyaline Cast (Auto) 0-2 (0-2) /lpf U Epithel Cells (Auto) 0-2 (0-2) /hpf Urine Bacteria (Auto) None Seen (None Seen) Urine Comment Adenovirus (PCR) (NotDetected) B. pertussis DNA (PCR) (NotDetected) B.parapertussis DNA PCR (NotDetected) C. pneumoniae DNA (PCR) (NotDetected) Coronavirus OC43 (PCR) (NotDetected) Coronavirus HKU1 (PCR) (NotDetected) Coronavirus 229E (PCR) (NotDetected) SARS-CoV-2 (PCR) (NotDetected) Coronavirus NL63 (PCR) (NotDetected) Human Metapneumovir PCR (NotDetected) Influenza Type A (PCR) (NotDetected) Influenza Type B (PCR) (NotDetected) M. pneumoniae (PCR) (NotDetected) Parainfluenza 1 (PCR) (NotDetected) Parainfluenza 2 (PCR) (NotDetected) Parainfluenza 3 (PCR) (NotDetected) Parainfluenza 4 (PCR) (NotDetected) RSV (PCR) (NotDetected) Entero/Rhino (PCR) (NotDetected) Blood Parasites ID Imaging Data Radiologist's Impression: Chest X-Ray 04/08/25 07:50 Clinical History: Sepsis Technique: A frontal view of the chest was obtained Findings: There are no confluent pulmonary infiltrates. The heart size is within normal limits. No pleural effusion or pneumothorax is seen. There is no definite pulmonary nodule. No fracture is noted. There is a left jugular central venous line with its tip near the junction of the SVC and right atrium Impression: No active disease Electronically signed by Ashok Quevedo 04-08-2025 09:01 AM Abdomen/Pelvis CT 04/08/25 08:06 Technique: Axial computed tomography images were obtained of the abdomen and pelvis after the administration of intravenous contrast. Comparison is made to the prior CT dated 06/17/2021. Findings: There is mild fatty infiltration of the liver. No liver mass lesion is seen. The portal vein is patent. The gallbladder has been removed. No bile duct dilatation is noted. The spleen is of normal size. No focal splenic lesion is evident. The pancreas appears normal with no sign of acute or chronic pancreatitis and no mass lesion noted. The pancreatic duct is of normal caliber. The adrenal glands appear unremarkable. No definite renal or proximal ureteral calculi are seen on this contrast-enhanced study. There is no hydronephrosis or perinephric stranding. No renal mass lesion is identified. The aorta is of normal caliber. No abdominal adenopathy is seen. There is a percutaneous gastrostomy tube. There is also a percutaneous jejunostomy tube. There is no sign of small bowel obstruction. Postsurgical changes are again seen of colectomy with an ileostomy in the right midabdomen. No free intraperitoneal fluid or air is identified. No distal ureteral or bladder calculi are seen. No bladder mass lesion is evident. The iliac arteries are of normal caliber. No pelvic adenopathy is noted. The uterus has been removed The lungs bases appear clear. No fracture is identified. No focal osseous lesion is seen Impression: 1. 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 There is a percutaneous gastrostomy tube as well as a percutaneous jejunostomy tube 2. Mild fatty infiltration of the liver Electronically signed by Ashok Quevedo 04-08-2025 10:[address] 04/08/25 08:06 Clinical History: Headache. Technique: Axial computed tomography images were obtained of the brain from the vertex to the skull base without intravenous contrast. Findings: There is no sign of intracranial hemorrhage. There is normal quijano-white matter differentiation with no sign of acute or old infarction. No midline shift or other form of herniation is identified. There is no hydrocephalus. No obvious mass lesion is seen on this noncontrast examination. The visualized portions of the orbits and paranasal sinuses appear unremarkable. The mastoid air cells appear clear Impression: Unremarkable noncontrast CT of the brain Electronically signed by Ashok Quevedo 04-08-2025 09:53 AM ECG Data Attestation: I personally reviewed and interpreted this ECG as follows: Rate (beats per minute): 135 Rhythm: + sinus tachycardia ECG Intervals/blocks: + Normal MN and + Normal QT-c ECG ST segments: + Normal ST segments Additional Comments: QRS 78 MDM Narrative 0756: The patient was evaluated in room B6. A complete history and physical exam was performed Cardiac monitoring: An order was placed for continuous cardiac monitoring. The monitor shows a rate of 130 with sinus tachycardia rhythm interpreted by me 1025: Vital signs stable. White blood cell count 6.7 hemoglobin 11.3 coagulation studies are unremarkable potassium 2.8 magnesium with in normal limits. Procalcitonin elevated 0.52. Patient empirically treated with antibiotics. Patient will be admitted to the [facility] hospitalist team. Impression & Plan Hypokalemia Discharge Plan Visit Data Chief Complaint: Illness Stated Complaint: CENTRAL LINE, FEVER, RIGORS, NAUSEA, VOMITING ED Provider: Mau Christine Discharge Problem: Hypokalemia Patient Disposition: Being Evaluated by Hospitalist Condition: Fair Discharge Instructions Interventions: ED Discharge Assessment Last Done: 04/08/25 16:34 Forms Stand Alone Forms: My [facility] Prescriptions Prescriptions: No Action pyridoxine (vitamin B6) 50 mg tablet 50 mg PO QAM estradiol 0.025 mg/24 hr patch semiweekly 0.025 mg transdermal [id number] Rx Instructions: wed and sat lorazepam 2 mg/mL concentrate 1 mg PO DIRECTED PRN (Reason: ANXIETY/SLEEP) clindamycin phosphate 1 % gel 1 applic topical DIRECTED famotidine 40 mg tablet 20 mg PO BID Hold Instructions: Resume on 11/22/24. Rx Instructions: 1/2 tablet dose hydrocortisone 10 mg tablet 10 - 15 mg PO UD Hold Instructions: Resume on 10/27/22. Please take hydrocortisone 25mg in the morning and 20mg in the afternoon until your thursday followup with endocrinology Rx Instructions: TAKE 15 MG EVERY MORNING AND 10 MG EVERY AFTERNOON dicyclomine 10 mg Capsule 20 mg PO Q6H PRN (Reason: Abdominal Pain) pantoprazole [Protonix] 40 mg tablet,delayed release (DR/EC) 20 mg PO BID fexofenadine 180 mg Tablet 180 mg PO HS Hold Instructions: Resume on 11/22/24. methocarbamol 750 mg Tablet 750 mg PO TID cholecalciferol (vitamin D3) [Vitamin D3] 25 mcg (1,000 unit) Capsule 50 mcg PO QAM duloxetine 60 mg capsule,delayed release(DR/EC) 60 mg PO QAM ondansetron 8 mg tablet,disintegrating 8 mg PO TID PRN (Reason: Nausea) levothyroxine [Synthroid] 50 mcg tablet 50 mcg PO QAM fludrocortisone 0.1 mg tablet 0.1 mg PO BID acetaminophen [Tylenol Extra Strength] 500 mg Tablet 1,000 mg PO Q6H PRN (Reason: Pain) multivit with min-folic acid [Multivitamin Gummies] 200 mcg Tablet,Chewable 2 tab PO HS turmeric 400 mg Capsule 400 mg PO HS Rx Instructions: Takces 1 cap daily coenzyme Q10 [CoQ-10] 100 mg capsule 100 mg PO QPM Rx Instructions: Takes 1 tab daily gabapentin 250 mg/5 mL solution 900 mg PO TID 30 Days Qty: 1620 0RF fentanyl 50 mcg/hr patch 72 hour 1 patch topical Q72H oxycodone 20 mg/mL Concentrate 5 mg PO Q4H PRN (Reason: Pain, Moderate) Qty: 1260 0RF Referrals Referrals: Mariah Addison DO [Primary Care Provider] -
[2025-04-08] MEDS: ACETAMINOPHEN 1,000 MG/100 ML VIAL IV STA (08:18)
[2025-04-08 08:49] LABS: Alanine Aminotransferase 18.0 U/L (7-52); Albumin Level 3.9 gm/dl (3.4-5.0); Alkaline Phosphatase 92.0 U/L (34-104); Anion Gap 8.0 (3-11); Bilirubin,Total 0.3 mg/dl (0.2-1.0); Blood Urea Nitrogen 6.0 mg/dl (6-23); Calcium 8.4 mg/dl (8.6-10.3); Carbon Dioxide 29.0 mmol/L (21-32); Chloride 102.0 mmol/L (98-107); Creatinine Clr Calc Pharmacy 100.9 ml/min; Glucose 105.0 mg/dl (70-99(Fasting)); Magnesium 1.7 mg/dl (1.7-2.4); Potassium 2.8 mmol/L (3.5-5.1); Sodium 139.0 mmol/L (136-145); Total Protein 6.4 gm/dl (6.0-8.3)
[2025-04-08 08:58] LABS: Hematocrit (blood only) 33.4 % (37.0-47.0); Hemoglobin 11.3 g/dL (12.0-16.0); Immature Granulocytes # (auto) 0.02 K/uL (0.01-0.20); Immature Granulocytes % (auto) 0.3 %; Mean Corpuscular Hemoglobin 29.8 pg (25.0-34.0); Mean Corpuscular Volume 88.1 fL (80.0-100.0); Platelet Count 252 K/uL (130-400); RDW Standard Deviation 42.8 fL (36.4-46.3); Red Blood Count 3.79 M/uL (4.20-5.40); White Blood Count 6.70 K/ul (4.8-10.8)
--- NOTE | 2025-04-08 09:03 | XRay Report ---
Clinical History: Sepsis Technique: A frontal view of the chest was obtained Findings: There are no confluent pulmonary infiltrates. The heart size is within normal limits. No pleural effusion or pneumothorax is seen. There is no definite pulmonary nodule. No fracture is noted. There is a left jugular central venous line with its tip near the junction of the SVC and right atrium Impression: No active disease Electronically signed by Ashok Quevedo 04-08-2025 09:01 AM
[2025-04-08 09:05] LABS: INR 1.1 (0.9-1.1); Partial Thromboplastin Time 21 Seconds (21-31); Prothrombin Time 11.4 Seconds (9.0-12.0)
[2025-04-08 09:09] LABS: Base Excess VBG 3.9 mEq/L; HCO3 VBG 29 mmol/L; Oxygen Saturation VBG 97.9 %; PCO2 VBG 42 mmHg (38-50); PO2 VBG 79 mmHg; pH VBG 7.44 (7.36-7.41)
[2025-04-08 09:16] LABS: Chlamydia pneumoniae PCR Not Detected (NotDetected); Coronavirus 229E PCR Not Detected (NotDetected); Coronavirus CoV-2 (COVID19)PCR Not Detected (NotDetected); Coronavirus HKU1 PCR Not Detected (NotDetected); Coronavirus NL63 PCR Not Detected (NotDetected); Coronavirus OC43PCR Not Detected (NotDetected); Human Metapneumovirus PCR Not Detected (NotDetected); Parainfluenza Virus 1 PCR Not Detected (NotDetected); Parainfluenza Virus 2 PCR Not Detected (NotDetected); Parainfluenza Virus 3 PCR Not Detected (NotDetected); Parainfluenza Virus 4 PCR Not Detected (NotDetected); Respiratory Syncytial VirusPCR Not Detected (NotDetected); Rhinovirus/Enterovirus PCR Not Detected (NotDetected)
[2025-04-08 09:17] LABS: Lipase 12.0 U/L (11-82)
[2025-04-08] MEDS: OPTIRAY 320 100ml IV ONE (09:26)
[2025-04-08] MEDS: POTASSIUM CHLORIDE / WTR 10 MEQ/100 ML PLCT IV SCH (09:37)
--- NOTE | 2025-04-08 09:53 | CT Scan Report ---
Clinical History: Headache. Technique: Axial computed tomography images were obtained of the brain from the vertex to the skull base without intravenous contrast. Findings: There is no sign of intracranial hemorrhage. There is normal quijano-white matter differentiation with no sign of acute or old infarction. No midline shift or other form of herniation is identified. There is no hydrocephalus. No obvious mass lesion is seen on this noncontrast examination. The visualized portions of the orbits and paranasal sinuses appear unremarkable. The mastoid air cells appear clear Impression: Unremarkable noncontrast CT of the brain Electronically signed by Ashok Quevedo 04-08-2025 09:53 AM
[2025-04-08 10:08] LABS: Appearance Urine Clear (Clear); Bacteria Urine Automated None Seen (None Seen); Cast Urine Automated 0-2 /lpf (0-2); Epithelial Cell Urine Auto 0-2 /hpf (0-2); Glucose Urine UA Negative (Negative); RBC Urine Automated 0-2 /hpf (0-2); WBC Urine Automated 0-5 /hpf (0-5)
--- NOTE | 2025-04-08 10:08 | CT Scan Report ---
Technique: Axial computed tomography images were obtained of the abdomen and pelvis after the administration of intravenous contrast. Comparison is made to the prior CT dated 06/17/2021. Findings: There is mild fatty infiltration of the liver. No liver mass lesion is seen. The portal vein is patent. The gallbladder has been removed. No bile duct dilatation is noted. The spleen is of normal size. No focal splenic lesion is evident. The pancreas appears normal with no sign of acute or chronic pancreatitis and no mass lesion noted. The pancreatic duct is of normal caliber. The adrenal glands appear unremarkable. No definite renal or proximal ureteral calculi are seen on this contrast-enhanced study. There is no hydronephrosis or perinephric stranding. No renal mass lesion is identified. The aorta is of normal caliber. No abdominal adenopathy is seen. There is a percutaneous gastrostomy tube. There is also a percutaneous jejunostomy tube. There is no sign of small bowel obstruction. Postsurgical changes are again seen of colectomy with an ileostomy in the right midabdomen. No free intraperitoneal fluid or air is identified. No distal ureteral or bladder calculi are seen. No bladder mass lesion is evident. The iliac arteries are of normal caliber. No pelvic adenopathy is noted. The uterus has been removed The lungs bases appear clear. No fracture is identified. No focal osseous lesion is seen Impression: 1. 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 There is a percutaneous gastrostomy tube as well as a percutaneous jejunostomy tube 2. Mild fatty infiltration of the liver Electronically signed by Ashok Quevedo 04-08-2025 10:06 AM
[2025-04-08] MEDS: HYDROmorphone INJ 1 MG/ML SYRINGE IV STA (10:16)
[2025-04-08] MEDS ORDERED: VANCOMYCIN CONSULT ACTIVE PRN (10:26)
[2025-04-08] MEDS: cefTRIAXone SODIUM 1,000 MG/50 ML BAG IV STA (11:12)
[2025-04-08] MEDS: SODIUM CHLORIDE 0.9% 500 ML IV SCH (11:15)
--- NOTE | 2025-04-08 11:26 | History & Physical Report ---
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 She has had some creamy output from around her J- tube site. Lactate is normal. She is tachycardic and volume contracted appearing, and has concurrent hypokalemia. She is admitted for IV antibiotics, electrolyte management, and further infectious workup Nausea, vomiting, fever. Suspect bacteremia due to rigors and elevated procal citonin 39.4 fever in ER Lactate is not elevated Procalcitonin elevated, renal function is normal. She has had rigors - Chest x-ray shows no active disease - CTA/P: Postsurgical findings of colectomy with ileostomy formation, cholecystectomy, and hysterectomy. Percutaneous G-tube as well as percutaneous jejunostomy tube is noted. Mild fatty infiltration of the liver is noted. Bowel obstruction is not seen. No intra-abdominal fluid or air is noted. Past microbiology results with multiple strains of MSSA last to 2023, Pseudomonas positive last 2022 Ostomy output BioFire pending She reports feeling some fevers and rigors after having medications to report, although notes reported self has not been tender, erythematous or painful. Port cultures pending Blood cultures pending Per recent allergy/immunology testing she is not penicillin allergic and penicillins are safe to use across all classes. Given her very poor clinical appearance, history of pseudomonal infection, and abdominal involvement will expand her coverage to Zosyn. She has a history of "red man" syndrome to vancomycin which is being infused at a reduced rate. Will reassess antibiotics based on cultures when available, she warrants broad coverage on admission Normotensive Tachycardia downtrending with pain control and initial fluids. Received 1300 cc bolus, . 30 cc/kg target would be 7049 cc. She has additional 500cc nss fluid running at time of assessment. Will continue her on LR for IVFM. Potassium Continue Zosyn. Vancomycin rate reduced for history of "red man" syndrome Acute on chronic abdominal pain Worsened with nausea and vomiting. Procalcitonin is elevated. She is febrile in the ER. Antibiotic treatment as noted Patient has had multiple abdominal surgeries at [facility] CT shows expected postop changes, no acute infectious process, no free air Continue multimodal pain control. Scheduled Tylenol. Fentanyl patch 50 mcg. Hydromorphone 1-2 mg every 2 hours as needed. Continue home duloxetine, methocarbamol Zofran every 6 hours as needed IV FM Nutrition consulted continue PPI Adrenal insufficiency Home fludrocortisone continued -Home 15mg hydrocortisone, 10mg evening's dose, wean back to home dose when clinically progressing Hypothyroidism Continue Synthroid PNES - Increased frequency this week due to increased pain. 3 episodes since being here. 1-2 a day prior to getting sick. Typically episodes last 2 minjtes History of nonepileptiform seizure-like activity has a pain response She has had increased frequency of episodes during periods of uncontrolled pain. Continue pain management. Continue home Ativan - Seizure precautions. Continuous pulse ox. Cautious monitoring for episodes, generally has done well when focusing on pain control and reassurance with episodes. 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 POTS Continue meds as noted. Protein calorie malnutrition Nutrition consulted Endometriosis S/p hysterectomy DVT prophylaxis: Lovenox Disposition: PCU Diet: Clears as tolerated. 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 Fever began 1 evening ago and is associated with nonbloody emesis. In the ER she does not have a leukocytosis. VBG 7.4 /. BMP shows low potassium at 2.8, sodium normal, creatinine normal at 0.73. Ionized calcium is low at 1.07. She does not have a transaminitis. Albumin is normal at 3.9. Procalcitonin is elevated at 0.52. UA is bland. BioFire is negative. Chest x-ray shows no active disease CTA/P: Postsurgical findings of colectomy with ileostomy formation, xi cystectomy, and hysterectomy. Percutaneous G-tube as well as percutaneous jejunostomy tube is noted. Mild fatty infiltration of the liver is noted. Bowel obstruction is not seen. No intra-abdominal fluid or air is noted. CThead: No acute finding Normotensive, tachycardic. EKG with sinus tachycardia, some T wave inversions suggestive of demand. Pilar is seen at the bedside with her mother present; Past few days has felt generally poorly. G tube and G tube have felt irritated, she has felt nauseus. 2 days ago was having intermittent fevers at home of ~100.0-101.0*F. Had a few episodes of chills 2 days ago 4am this morning fever jumped up to 103*F, she had shaking chills, and felt worse. + Headache. +Nausea. +Abdominal pain ithe last 24 hours, mostly in the middle around her ileostomy. Had been doing OK prior. Was being worked up by a multivisceral transplant via [facility], as part of that Dr. Addison had done a pap smear as outpatient and noted a little yeast 1 week ago. Was not recommended for oral agent due to potential to affect her liver so used monostat. Did well with that in the last week, no burning or discharge. Last surgery was December 15 which was anteriorization for her SMA syndrome after her 3rd or 4th recurrence. She also had surgery for median arcuate ligament syndrome Week prior to this had her typical pain, but not bad. 3 weeks ago [facility] had re-evaluated and since she still could not eat, was stillhaving liver insuffienciency they would move forward with stomach, liver, pancreas, and small intestine transplant. She is pending insurance review. A nticipated surgical date would be when donor availability permitted, but was probably ana gto be in around 1year but was also be based somewhat on her meld scores. Tylenol 1g TID at home Fentanyl patch 50mcg Liquid oxycodone 20mg q4h consistently gabapentin 900mg PO TID liquid. Her mother reports she only takes 9cc PO TID pf 250mg/5ml sln (actual dose of 450mg per dose, TID) estradiol for hormone replacement Levacin/hyoscyamine for spincter spasms .125mg SL q4h prn for conspitation/spincter spasm Ostomy output slightly thick and greenish +output from J tube. G tube drainage green and changed today Last C diff 2014, no recent. [place] with Dr. Herrera to braoden abx option. NO PCN allergy. She reports that she has had no warmth, swelling, or tenderness overlying her port but when she has used this for medication has had chills and rigors and is not sure if this is coincidental. Allergies Allergy/AdvReac Type Severity Reaction Status Date / Time diphenhydramine Allergy Severe Anaphylaxis Verified 04/08/25 10:12 promethazine Allergy Severe hives, Verified 04/08/25 10:12 throat swelling adhesive Allergy Intermediate Redness of Verified 04/08/25 10:12 Skin azithromycin [From Zithromax] Allergy Intermediate RASH/VOMITI Verified 04/08/25 10:12 NG calcium Allergy Intermediate SEE COMMENT Verified 04/08/25 10:12 [From VIACTIV Multi-Vitamin] ferric carboxymaltose Allergy Intermediate Rash Verified 04/08/25 10:12 [From Injectafer] folic acid Allergy Intermediate SEE COMMENT Verified 04/08/25 10:12 [From VIACTIV Multi-Vitamin] iron [From Venofer] Allergy Intermediate Muscle Pain Verified 04/08/25 10:12 multivitamin with minerals Allergy Intermediate SEE COMMENT Verified 04/08/25 10:12 [From VIACTIV Multi-Vitamin] Penicillins Allergy Intermediate HIVES Verified 04/08/25 10:12 prochlorperazine Allergy Intermediate HIVES Verified 04/08/25 10:12 sulfamethoxazole Allergy Intermediate RASH Verified 04/08/25 10:12 sumatriptan Allergy Intermediate RASH Verified 04/08/25 10:12 trimethoprim Allergy Intermediate RASH Verified 04/08/25 10:12 ascorbic acid Allergy profiled Verified 04/08/25 10:12 from "external allergies" cefazolin Allergy cefazolin=ADR, Verified 04/08/25 10:12 cephalosporins=hives metoclopramide AdvReac Severe anxiety/ Verified 04/08/25 10:12 jittery morphine AdvReac Severe Severe Verified 04/08/25 10:12 abdominal Pain, sphincter of oddi spasms erythromycin base AdvReac Intermediate GI SYMPTOMS Verified 04/08/25 10:12 citalopram [From Celexa] AdvReac Unknown CAN'T Verified 04/08/25 10:12 REMEMBER latex AdvReac profiled Verified 04/08/25 10:12 from external allergies scopolamine AdvReac skin Verified 04/08/25 10:12 irritation,profiled from "external allergies" Home Medications Medication Instructions Recorded Confirmed Type dicyclomine 10 mg capsule 20 mg PO Q6H PRN Abdominal Pain 03/07/18 04/08/25 History pantoprazole 40 mg tablet,delayed 20 mg PO BID 09/08/19 04/08/25 History release (Protonix) famotidine 40 mg tablet 20 mg PO BID 11/28/19 04/08/25 History hydrocortisone 10 mg tablet 10 - 15 mg PO UD 02/07/20 04/08/25 History fexofenadine 180 mg tablet 180 mg PO HS 10/09/20 04/08/25 History fludrocortisone 0.1 mg tablet 0.1 mg PO BID 12/12/20 04/08/25 History acetaminophen 500 mg tablet 1,000 mg PO Q6H PRN Pain 06/13/21 04/08/25 History (Tylenol Extra Strength) multivitamin with minerals-folic 2 tab PO HS 06/13/21 04/08/25 History acid 200 mcg chewable tablet (Multivitamin Gummies) turmeric 400 mg capsule 400 mg PO HS 06/13/21 04/08/25 History cholecalciferol (vitamin D3) 25 50 mcg PO QAM 04/07/22 04/08/25 History mcg (1,000 unit) capsule (Vitamin D3) duloxetine 60 mg capsule,delayed 60 mg PO QAM 04/07/22 04/08/25 History release methocarbamol 750 mg tablet 750 mg PO TID 04/07/22 04/08/25 History coenzyme Q10 100 mg capsule 100 mg PO QPM 07/22/22 04/08/25 History (CoQ-10) pyridoxine (vitamin B6) 50 mg 50 mg PO QAM 07/22/22 04/08/25 History tablet ondansetron 8 mg disintegrating 8 mg PO TID PRN Nausea 10/06/22 04/08/25 History tablet levothyroxine 50 mcg tablet 50 mcg PO QAM 03/04/23 04/08/25 History (Synthroid) gabapentin 250 mg/5 mL oral 900 mg (18 mL) PO TID 30 days 12/15/23 04/08/25 Rx solution #1,620 mL clindamycin phosphate 1 % topical 1 applic topical DIRECTED 09/07/24 04/08/25 History gel estradiol 0.025 mg/24 hr 0.025 mg transdermal 2XWK 09/07/24 04/08/25 History semiweekly transdermal patch lorazepam 2 mg/mL oral concentrate 1 mg PO DIRECTED PRN 09/07/24 04/08/25 History ANXIETY/SLEEP oxycodone 20 mg/mL oral concentrate 5 mg (0.25 mL) PO Q4H PRN Pain, 11/14/24 04/08/25 Rx Moderate #1,260 mL fentanyl 50 mcg/hr transdermal 1 patch topical Q72H 04/08/25 04/08/25 History patch Past Med/Surg History Problem List SMAS (superior mesenteric artery syndrome) (Acute) Vomiting (Acute) Seizure-like activity (Acute) Septic pulmonary embolism MSSA bacteremia Port-A-Cath in place Discharge planning issues DVT prophylaxis Methicillin susceptible Staphylococcus aureus infection Central line infection Pseudomonas aeruginosa infection Visceral hyperalgesia Palliative care encounter Right ankle sprain (Acute) Encounter for care related to vascular access port Iron deficiency anemia Syncope Seizure-like activity Witnessed seizure-like activity (Acute) Hypokalemia Malnutrition Transaminitis B12 deficiency Folate deficiency Diversion colitis Intestinal motility disorder (Chronic) Candidiasis of mouth and esophagus Severe protein-calorie malnutrition Abdominal pain, chronic, generalized (Chronic) Adrenal insufficiency On total parenteral nutrition (TPN) (Chronic) Acute kidney insufficiency Tachycardia (Acute) Acute dehydration (Acute) Epigastric abdominal pain (Acute) Chronic migraine without aura Hypokalemia Hypomagnesemia Hypokalemia Enteritis (Acute) Hypophosphatemia (Acute) Endometriosis has had 3 surgeries for this. Last surgery 2018 Jejunal intussusception Sinus tachycardia Hypotension Secondary hyperparathyroidism Hypocalcemia Diarrhea (Acute) Hypophosphatemia (Acute) Chronic migraine (Chronic) Anemia Gastroparesis Sphincter of Oddi spasm Fever Hypokalemia Vomiting (Acute) Urinary retention (Acute) UTI (urinary tract infection) (Acute) resolved S/P cholecystectomy 2014 Post-op pain (Acute) Hypotension Hemorrhagic cystitis (Acute) hx Head injury (Acute) Concussion (Acute) Bilious vomiting (Acute) Allergic reaction caused by a drug Allergic reaction Asthma (Chronic) Abnormal MRI, kidney (Acute) Acute right flank pain (Acute) Right flank pain (Acute) Bilateral flank pain (Acute) Appendicitis, acute (Acute 11/07/13) Medical History Acute dehydration RUQ abdominal pain Endometrioma of ovary Urinary dysfunction Abdominal pain Pain disorder Generalized abdominal pain Hx of Clostridium difficile infection 5 years ago, tx. 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 carroll, [facility] Spinal cord stimulator status trial implanted 03/02/23, in dr. ramírez's office>advised to bring remote Chronic, continuous use of opioids Difficult intravenous access Intractable pain Abdominal pain Elevated lipase Transaminitis Colitis Chronic malnutrition Intussusception hx PICC (peripherally inserted central catheter) in place TPN Pancreatitis hx Sphincter of Oddi dysfunction DECREASED GI MOTILITY Uses feeding tube gastroparesis and decreased GI motility can not tolerate feeding and uses TPN Epigastric abdominal pain Nausea Surgical History H/O bilateral oophorectomy History of removal of Port-a-Cath (12/03/23) Port Removal(Right) - Jr Collins, , FACS History of lysis of adhesions History of liver biopsy 2023 Hx of exploratory laparotomy History of esophagogastroduodenoscopy (EGD) Ileostomy status Hx of ileostomy Hx of colonoscopy during procedure perforated small bowel 10/27/2019 at [facility], subsequent repair of duodenal area. History of bowel resection Part of duodenum removed due to necrosis; done at [facility] 2019 History of removal of Port-a-Cath 10/13/[address] Geiger, [facility], due to bacteremia/sepsis.; "inserted and removed multiple times" History of hysterectomy 09/27/19 History of appendectomy History of vascular access device 2018; implanted and removed "several" times Family History Father Hyperlipidemia Other No significant family history Social History Smoking Status: Never smoker Second Hand Exposure: No; Do You Dip or Chew Tobacco: No; Hx Alcohol Use: No Hx Substance Use: No Preferred Language: Guamanian Communication Ability: Effective Visual Impairment: No Limitations Hearing Ability: Normal Apprentice Carpenter Required: No Beliefs That Will Affect Care: None marital status: Single Current Living Situation: Parent Current Living Situation Comment: Patient lives at home with both parents current occupational status: unemployed current occupation: completed 4-year degree at [employer] How many Children do You have: 0 Feels Safe at Home: Yes Diet: regular Sexual Activity Comment: not sexually active Assistive Devices: Crutches and Wheelchair Physical Exam Physical Exam: General: Appears pale, fatigued, ill HEENT: Atraumatic, normocephalic. Patient and hearing grossly intact Thorax: Left Norris without overlying warmth/tenderness. Scant area of pinkness which patient reports is normal and has not changed the previous day/weeks. No overt erythema. Pulm: Diminished but grossly clear without wheezes/rales Cardiac: Regular, tachycardic, -mrg. Radial pulses intact and symmetrical. Abdominal: Mild tenderness surrounding J-tube. G-tube draining greenish material. Extremities: Thin. Moves all extremities equally Results & Data Results & Data Vital Signs (Past 12 Hours) Vital Signs Temp Pulse Resp BP Pulse Ox O2 Del Method 04/08/25 09:09 37.0 C 04/08/25 09:00 119 H 14 128/85 94 Room Air 04/08/25 08:45 124 H 18 124/88 95 Room Air 04/08/25 08:30 121 H 14 121/84 93 Room Air 04/08/25 08:21 123 H 22 126/86 94 04/08/25 08:15 134 H 20 95 04/08/25 08:13 136 H 04/08/25 08:05 130 H 16 94 Room Air 04/08/25 08:00 134 H 17 94 04/08/25 07:44 39.4 C H 148 H 25 H 121/88 95 Room Air PG Care Time/CCT Total # of Minutes Spent Total Time Spent with Patient: Total time spent is greater than 50% in coordination of care (as documented) at patient's floor/unit and/or counseling patient: Coding Level of Care Code 08745 INT INP/OBS CARE 3/75MIN Diagnoses Fever R50.9 Hypokalemia E87.6 POTS (postural orthostatic tachycardia syndrome) G90.A History of seizures Z87.898 Adrenal insufficiency E27.40 Severe protein-calorie malnutrition E43 Abdominal pain, chronic, generalized R10.84; G89.29
[2025-04-08] MEDS ORDERED: NALOXONE HCL 0.4 MG/1 ML VIAL/CARP IV PRN (12:01)
[2025-04-08] MEDS ORDERED: HYDROmorphone INJ 0.5 MG/0.5 ML SYR IV PRN (12:01)
[2025-04-08] MEDS: HYDROmorphone INJ 1 MG/ML SYRINGE IV PRN (12:19)
[2025-04-08] MEDS ORDERED: ONDANSETRON 8MG OD TAB PO PRN (12:19)
[2025-04-08] MEDS ORDERED: HYDROCORTISONE 10 MG TAB PO SCH ×2 (12:30→21:00)
[2025-04-08] MEDS: LORazepam 1 MG/1 ML SYR ED Inj Use IV STA (12:48)
[2025-04-08] MEDS: PIPERACILLIN/TAZOBACTAM 4.5 GM/100 ML BAG IV ONE (13:01)
[2025-04-08] MEDS: ONDANSETRON INJ 2 MG/ML 2 ML VIAL IV PRN (16:02)
[2025-04-08] MEDS: FAMOTIDINE 20MG IV PUSH 20 MG/5 ML SYR IV SCH (16:02)
[2025-04-08] MEDS: VANCOMYCIN HCL 1,250 MG in SODIUM CHLORIDE 0.9% 500 ML IV ONE (16:07)
--- NOTE | 2025-04-08 16:34 | Pharmacy Report ---
Pharmacy PK ABX Note - Date of Service April 08, 2025 - Assessment and Plan Assessment 35 year old F receiving vancomycin and zosyn empirically in setting of fever. Complicated history with multiple abdominal surgeries and adrenal insufficiency. Blood cultures pending, renal function stable. Day #1 of antimicrobial therapy. Plan Vancomycin * Maintenance dose: 1250 mg IV every 12 hours * Regimen is predicted to achieve target AUC/BELLA of 400-600 mg/L.hr * Will obtain a level if therapy continues beyond 48h Pharmacy will continue to follow and will adjust dose/frequency as necessary. Thank you. Pharmacy has transitioned to AUC monitoring for vancomycin. AUC/BELLA is the preferred PK/PD target and is associated with decreased risk of nephrotoxicity compared to traditional trough targets.
[2025-04-08] MEDS: GABAPENTIN 250 MG/5 ML 470 ML BTL JT SCH (17:11)
[2025-04-08] MEDS: LORazepam Inj 1 MG in SYRINGE 0.5 ML IV PRN (18:07)
[2025-04-08] MEDS: LACTATED RINGER'S 1,000 ML IV SCH (18:08)
[2025-04-08] MEDS: METHOCARBAMOL 750 MG TABLET PO SCH (18:09)
[2025-04-08] MEDS: PIPERACILLIN/TAZOBACTAM 4.5 GM/100 ML BAG IV SCH (18:09)
[2025-04-08] MEDS: ENOXAPARIN INJ 40 MG/0.4 ML SYR SQ SCH (18:09)
[2025-04-08 19:15] LABS: Anion Gap 8.0 (3-11); Blood Urea Nitrogen 4.0 mg/dl (6-23); Calcium 7.9 mg/dl (8.6-10.3); Carbon Dioxide 25.0 mmol/L (21-32); Chloride 109.0 mmol/L (98-107); Creatinine Clr Calc Pharmacy 102.3 ml/min; Glucose 76.0 mg/dl (70-99(Fasting)); Potassium 4.6 mmol/L (3.5-5.1); Sodium 142.0 mmol/L (136-145)
[2025-04-08] MEDS: ACETAMINOPHEN 1,000 MG/100 ML VIAL IV PRN (19:18)
[2025-04-08] MEDS: FLUDROCORTISONE ACETATE 0.1 MG TAB PO SCH (20:18)
[2025-04-08] MEDS: FEXOFENADINE HCL 180 MG TAB PO SCH (20:18)
[2025-04-08] MEDS: DICYCLOMINE HCL 10 MG CAP PO PRN (20:33)
[2025-04-08] MEDS: HYDROCORTISONE SOD 15 MG in SYRINGE 0 ML IV SCH (20:35)
[2025-04-08] MEDS ORDERED: CEROVITE ADV FORMULA TAB PO SCH (21:00)
[2025-04-08] MEDS ORDERED: HYDROCORTISONE SOD SUCCINATE 100 MG/2 ML VIAL IV SCH (21:00)
[2025-04-08] MEDS: VANCOMYCIN HCL 1,250 MG in SODIUM CHLORIDE 0.9% 250 ML IV SCH (21:21)
[2025-04-09] MEDS: LEVOTHYROXINE SODIUM 50 MCG TABLET PO SCH (06:04)
--- NOTE | 2025-04-09 06:39 | Hospitalist Progress Note ---
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 She is admitted for IV antibiotics, electrolyte management, and further infectious workup Nausea, vomiting, fever - Suspect bacteremia due to rigors and elevated procalcitonin 39.4C fever in ER. She has had rigors. Currently afebrile, normotensive, sinus tachycardia Received 1500cc nss + 2L LR (currently running at 124ml/hr) Lactate is not elevated. Procalcitonin is elevated to 0.52. Renal function is normal. CXR: no active disease CT A/P: Postsurgical findings of colectomy with ileostomy formation, cholecystectomy, and hysterectomy. Percutaneous G-tube as well as percutaneous jejunostomy tube is noted. Mild fatty infiltration of the liver is noted. Bowel obstruction is not seen. No intra-abdominal fluid or air is noted. Ostomy output BioFire negative. Past micro results with multiple strains of MSSA - last to 2023, Pseudomonas positive in 2022 Blood cultures pending, prelim results show no growth Per recent allergy/immunology testing, penicillins are safe to use across all classes. Started on Zosyn given her very poor clinical appearance, history of pseudomonal infection, and abdominal involvement. She does have h/o "red man" syndrome so vancomycin to be infused at a reduced rate. Tailor abx per culture results Potassium repleted. Check daily Acute on chronic abdominal pain Resuming pain regimen determined to be optimal at last admission IV Tylenol q8h 2mg Dilaudid qAM + qPM + 1mg Dilaudid q2h prn Fentanyl patch q72h Pain worsened with nausea and vomiting; resume Ativan q6h prn Antibiotic treatment as above Continue home duloxetine, methocarbamol Continue Protonix 40 daily, Zofran 4mg q4h prn Nutrition consulted Adrenal insufficiency Home fludrocortisone continued Home 15mg hydrocortisone, 10mg evening's dose, wean back to home dose when clinically progressing Hypothyroidism Continue Synthroid PNES History of nonepileptiform seizure-like activity as a pain response. Increased frequency this week due to increased pain. 1-2 a day prior to getting sick. 3 episodes in the ER. Typical eps last 2 min Continue multimodal pain management. Continue Ativan Seizure precautions. Continuous pulse ox. Cautious monitoring for episodes, generally has done well when focusing on pain control and reassurance with episodes. If hypoxia, incontinence, or prolonged episode will have ativan supervisor train operations. Protein calorie malnutrition Nutrition consulted POTS Continue meds as noted. Endometriosis S/p hysterectomy DVT prophylaxis: Lovenox Disposition: PCU Diet: Clears as tolerated. Nutrition consulted (2) Hypokalemia: (3) POTS (postural orthostatic tachycardia syndrome): (4) History of seizures: (5) Adrenal insufficiency: (6) Severe protein-calorie malnutrition: (7) Abdominal pain, chronic, generalized: Admission and Anticipated Discharge Date Admission Date: April 08, 2025 Supervising Physician Co-Signing Physician Notes Patient seen and examined, chart reviewed, case discussed with Dr. Hipolito MD and I agree with the assessment and plan as above except as otherwise noted Labs and images reviewed 35-year-old female with complicated GI history admitted for fever, elevated Pro- Dereck, and possible sepsis possibly of GI origin. At the bedside she appears ill, but less pale than prior. Mucous membranes are moist. Output into NG tube unchanged, dark greenish in color. Has not had ongoing discharge around her J- tube this morning. Norris remains without warmth/tenderness. She does not have a leukocytosis. She was intermittently febrile overnight Tmax 39.4. Zosyn/vancomycin continued empirically pending initial cultures. potassium improving, continue with daily repletion to goal of 3.54. Replete magnesium to goal of 2.0. Creatinine is at baseline. Does have continued acute on chronic pain. Medication regimen was converted to on-call IV, she has had inadequate pain control overnight. Has had her hydromorphone increased to similar past requirements. Risk of respiratory suppression was discussed, her and her mother are very aware of risks and her generalized requirements with her chronic pain. Narcan is supervisor train operations. Agree with above Subjective NAEO. "Not doing great" this morning. Still having some fevers, but no rigors. Remains in sinus tachy per telemetry. Reports significant abd pain and AVENDAÑO. Does have nausea but no emesis. No CP or SOB. Mom is at bedside, reports they did get surgery at [facility] in November but it did not work as intended, and mentions that [facility] is on the list for a multi-visceral transplant. Review of Systems Review of Systems: As per HPI. Physical Exam Physical Exam: Gen: NAD, WD/WN HEENT: NCAT, normal conjunctiva, MMM CV: Elevated rate, regular rhythm, no m/r/g Resp: CTAB, symmetrical chest rise, breathing non-labored Abd: Soft, tender, nondistended, +BS, greenish drainage from G tube Neuro: AOx3, CN II-XII grossly intact, no focal deficits Psych: Appears tired, but cooperates. Speech pace and thought content normal. No AVH, SI, HI Results & Data Results & Data Vital Signs (Past 12 Hours) Vital Signs Temp Pulse Pulse Pulse Resp BP Pulse Ox 04/09/25 05:22 37.6 C H 04/09/25 03:51 39 C H 131 H 22 120/86 97 04/08/25 22:59 37.3 C 115 H 18 100/69 95 04/08/25 22:39 113 H 04/08/25 20:50 37.7 C H 04/08/25 19:46 39.4 C H 126 H 18 126/87 96 04/08/25 18:53 39.1 C H 126 H 22 135/44 L 99 04/08/25 18:47 126 H O2 Del Method 04/09/25 05:22 04/09/25 03:51 Room Air 04/08/25 22:59 Room Air 04/08/25 22:39 04/08/25 20:50 04/08/25 19:46 Room Air 04/08/25 18:53 Room Air 04/08/25 18:47 Resident Activity Tracking Resident Involvement: Resident Care Provided Care Provided: Adult Hospital Medicine
[2025-04-09] MEDS ORDERED: Nursing to Pharmacy Communication SCH (07:15)
[2025-04-09 08:06] LABS: Hematocrit (blood only) 34.3 % (37.0-47.0); Hemoglobin 11.1 g/dL (12.0-16.0); Immature Granulocytes # (auto) 0.01 K/uL (0.01-0.20); Immature Granulocytes % (auto) 0.2 %; Mean Corpuscular Hemoglobin 29.1 pg (25.0-34.0); Mean Corpuscular Volume 89.8 fL (80.0-100.0); Platelet Count 200 K/uL (130-400); RDW Standard Deviation 44.0 fL (36.4-46.3); Red Blood Count 3.82 M/uL (4.20-5.40); White Blood Count 5.87 K/ul (4.8-10.8)
[2025-04-09 08:30] LABS: Anion Gap 8.0 (3-11); Blood Urea Nitrogen 5.0 mg/dl (6-23); Calcium 7.9 mg/dl (8.6-10.3); Carbon Dioxide 27.0 mmol/L (21-32); Chloride 105.0 mmol/L (98-107); Creatinine Clr Calc Pharmacy 110.2 ml/min; Glucose 81.0 mg/dl (70-99(Fasting)); Magnesium 1.6 mg/dl (1.7-2.4); Potassium 3.1 mmol/L (3.5-5.1); Sodium 140.0 mmol/L (136-145)
[2025-04-09] MEDS ORDERED: HYDROCORTISONE 10 MG TAB PO SCH (09:00)
[2025-04-09] MEDS ORDERED: HYDROCORTISONE SOD SUCCINATE 100 MG/2 ML VIAL IV SCH (09:00)
[2025-04-09] MEDS: HYDROmorphone INJ 2 MG/ML SYR/VIAL IV SCH (09:40)
[2025-04-09] MEDS: LORazepam Inj 1 MG in SYRINGE 0.5 ML IV PRN (09:40)
[2025-04-09] MEDS: PANTOprazole 40 MG/10 ML SYR IV SCH (09:42)
[2025-04-09] MEDS: CHOLECALCIFEROL 25 MCG (1000 UNITS) TAB PO SCH (09:45)
[2025-04-09] MEDS: HYDROCORTISONE SOD 30 MG in SYRINGE 0 ML IV SCH (09:47)
[2025-04-09] MEDS: PYRIDOXINE HCL 50 MG TAB PO SCH (09:48)
[2025-04-09] MEDS: HYDROmorphone INJ 1 MG/ML SYRINGE IV PRN (11:26)
[2025-04-09] MEDS: MAGNESIUM SULFATE / D5W 1 GM/100 ML BAG IV SCH (13:33)
[2025-04-09] MEDS: POTASSIUM CHLORIDE / WTR 10 MEQ/100 ML PLCT IV SCH (13:33)
[2025-04-09] MEDS: ACETAMINOPHEN 1,000 MG/100 ML VIAL IV SCH (13:33)
--- NOTE | 2025-04-09 19:37 | Electrocardiogram Report ---
Test Reason : Blood Pressure : */* mmHG Vent. Rate : 135 BPM Atrial Rate : 135 BPM P-R Int : 146 ms QRS Dur : 78 ms QT Int : 282 ms P-R-T Axes : 59 48 -28 degrees QTcB Int : 423 ms Sinus tachycardia Abnormal ECG When compared with ECG of 03-Dec-2023 00:06, T wave inversion more evident in Inferior leads T wave inversion now evident in Lateral leads Confirmed by Jania Doyle (Kimi) on 04/09/2025 7:37:02 PM Referred By: Confirmed By: Jania Doyle
--- NOTE | 2025-04-10 07:54 | Hospitalist Progress Note ---
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 She is admitted for IV antibiotics, electrolyte management, and further infectious workup #Sepsis #Nausea, vomiting, fever 39.4C fever in ER. She has had rigors. Currently afebrile, normotensive, sinus tachycardia - Blood cultures negative at 48hrs Lactate is not elevated. Procalcitonin is mildly elevated to 0.52. Renal function is normal. CXR: no active disease CT A/P: Postsurgical findings of colectomy with ileostomy formation, ch olecystectomy, and hysterectomy. Percutaneous G-tube as well as percutaneous jejunostomy tube is noted. Mild fatty infiltration of the liver is noted. Bowel obstruction is not seen. No intra-abdominal fluid or air is noted. Ostomy output BioFire negative. Past micro results with multiple strains of MSSA - last to 2023, Pseudomonas positive in 2022 Continue Zosyn given history of pseudomonal infection, and abdominal involvement; vancomycin discontinued CBC, BMP in AM Acute on chronic abdominal pain Started on pain regimen determined to be optimal at last admission IV Tylenol q8h 2mg Dilaudid BID; escalated 1mg -> 1.5mg Dilaudid q2h prn for breakthrough pain Fentanyl patch q72h Pain worsened with nausea and vomiting; resume Ativan q6h prn Antibiotics as above Continue home duloxetine, methocarbamol Continue Protonix 40 daily, Zofran 4mg q4h prn Nutrition consulted Adrenal insufficiency Home fludrocortisone continued Home 15mg hydrocortisone, 10mg evening's dose, wean back to home dose when clinically progressing Hypothyroidism Continue Synthroid PNES History of nonepileptiform seizure-like activity as a pain response. Increased frequency this week due to increased pain. 1-2 a day prior to getting sick. 3 episodes in the ER. Typical eps last 2 min Continue multimodal pain management. Continue Ativan Seizure precautions. Continuous pulse ox. Cautious monitoring for episodes, generally has done well when focusing on pain control and reassurance with episodes. 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 Protein calorie malnutrition Nutrition consulted; will aim to start TPN tomorrow 04/11/25 as she is 48hrs without growth from BCx POTS Continue meds as noted. Endometriosis S/p hysterectomy DVT prophylaxis: Lovenox Disposition: PCU Diet: Clears as tolerated. Nutrition consulted (2) Hypokalemia: (3) POTS (postural orthostatic tachycardia syndrome): (4) History of seizures: (5) Adrenal insufficiency: (6) Severe protein-calorie malnutrition: (7) Abdominal pain, chronic, generalized: Admission and Anticipated Discharge Date Admission Date: April 08, 2025 Supervising Physician Co-Signing Physician Notes Resident Physician Supervision Note: I personally examined the patient and verified all solorzano points of history and exam, discussed case, and agree with decision making with Dr. Suarez I discussed the case with the resident and agree with the findings and plan as documented in the note. Any exceptions or clarifications are listed here: None Patient with presented with a significant febrile illness now found to have Pseudomonas growing from the drainage around her J-tube site. Patient is on Zos yn. She has persistent abdominal discomfort and has PNES from her pain. We are amending her pain control keeping her fentanyl as going and will likely discuss case with infectious disease to determine duration of treatment for her J-tube site infection. Patient was evaluated she is having some headache her G-tube site is with some slight erythema surrounding the tube this is probably 2 to 3 mm and there is only a very scant small amount of yellowish drainage on the gauze surrounding the J-tube. Continue intravenous Zosyn at this point in time May down regulate her vancomycin and consider TPN initiation on 04/11 Documented By: Bhanu Means MD Bayron Quezada was seen and evaluated at bedside, mom present in AM and dad present in PM Notes her abd and headache are currently 8/10 pain and rather constant, slightly improved from day prior. Notes she would prefer to increase her prn dilaudid a bit and revisit pain mgmt tomorrow. Pain: [facility] guiding Dr. Addison here: liquid oxy by mouth; fent patch Physical Exam Physical Exam: Gen: appearing tired, in mild distress HEENT: NCAT, normal conjunctiva, MMM CV: RRR, no m/r/g Resp: symmetrical chest rise, breathing non-labored GI/Abd: soft, tender, nondistended, +BS, green drainage from G tube, minor erythema surrounding G- and J-tube sites but no significant swelling or inc warmth Results & Data Results & Data Vital Signs (Past 12 Hours) Vital Signs Temp Pulse Pulse Resp BP Pulse Ox O2 Del Method 04/10/25 03:18 36.3 C L 69 18 110/74 97 Room Air 04/09/25 23:10 72 04/09/25 23:03 36.5 C 70 17 104/71 97 Room Air Resident Activity Tracking Resident Involvement: Resident Care Provided Care Provided: Adult Hospital Medicine
[2025-04-10 09:09] LABS: Hematocrit (blood only) 29.7 % (37.0-47.0); Hemoglobin 9.6 g/dL (12.0-16.0); Mean Corpuscular Hemoglobin 29.0 pg (25.0-34.0); Mean Corpuscular Volume 89.7 fL (80.0-100.0); Platelet Count 175 K/uL (130-400); RDW Standard Deviation 43.3 fL (36.4-46.3); Red Blood Count 3.31 M/uL (4.20-5.40); White Blood Count 3.36 K/ul (4.8-10.8)
[2025-04-10 09:30] LABS: Anion Gap 5.0 (3-11); Blood Urea Nitrogen 6.0 mg/dl (6-23); Calcium 7.8 mg/dl (8.6-10.3); Carbon Dioxide 29.0 mmol/L (21-32); Chloride 106.0 mmol/L (98-107); Creatinine Clr Calc Pharmacy 133.8 ml/min; Glucose 79.0 mg/dl (70-99(Fasting)); Potassium 3.6 mmol/L (3.5-5.1); Sodium 140.0 mmol/L (136-145)
[2025-04-10 09:42] LABS: Immature Granulocytes # (auto) 0.01 K/uL (0.01-0.20); Immature Granulocytes % (auto) 0.3 %
[2025-04-10] MEDS: [UNRECOGNIZED DRUG - OTHER] SCH (11:09)
[2025-04-10] MEDS: HYOSCYAMINE SULFATE 0.125 MG TAB PO PRN (16:23)
[2025-04-10] MEDS: HYDROmorphone INJ 1 MG/ML SYRINGE IV PRN (17:07)
--- NOTE | 2025-04-10 17:38 | Billing Data ---
Date of Service April 10, 2025 Coding Level of Care Code 17523 SUB INP/OBS CARE
[2025-04-11 06:32] LABS: Hematocrit (blood only) 28.5 % (37.0-47.0); Hemoglobin 9.7 g/dL (12.0-16.0); Immature Granulocytes # (auto) 0.03 K/uL (0.01-0.20); Immature Granulocytes % (auto) 0.5 %; Mean Corpuscular Hemoglobin 29.6 pg (25.0-34.0); Mean Corpuscular Volume 86.9 fL (80.0-100.0); Platelet Count 204 K/uL (130-400); RDW Standard Deviation 40.8 fL (36.4-46.3); Red Blood Count 3.28 M/uL (4.20-5.40); White Blood Count 6.21 K/ul (4.8-10.8)
[2025-04-11 07:05] LABS: Anion Gap 10.0 (3-11); Blood Urea Nitrogen 3.0 mg/dl (6-23); Calcium 7.7 mg/dl (8.6-10.3); Carbon Dioxide 30.0 mmol/L (21-32); Chloride 99.0 mmol/L (98-107); Creatinine Clr Calc Pharmacy 156.1 ml/min; Glucose 78.0 mg/dl (70-99(Fasting)); Potassium 2.7 mmol/L (3.5-5.1); Sodium 139.0 mmol/L (136-145)
--- NOTE | 2025-04-11 07:48 | Hospitalist Progress Note ---
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 She was admitted for IV antibiotics, electrolyte management, and further infectious workup. J-tube site culture positive for pseudomonas, switched from IV zosyn to PO cipro. #Pseudomonas at J-tube site #Nausea, vomiting, fever 39.4C fever in ER. She has had rigors. Currently afebrile, normotensive, sinus tachycardia - J-tube site wound cultures positive for Pseudomonas sensitive to fluoroquinolones; blood cultures negative at 48hrs Switched from IV zosyn to PO cipro 500mg BID Lactate is not elevated. Procalcitonin is mildly elevated to 0.52. Renal function is normal. CXR: no active disease CT A/P: Postsurgical findings of colectomy with ileostomy formation, cholecystectomy, and hysterectomy. Percutaneous G-tube as well as percutaneous jejunostomy tube is noted. Mild fatty infiltration of the liver is noted. Bowel obstruction is not seen. No intra-abdominal fluid or air is noted. Ostomy output BioFire negative. Past micro results with multiple strains of MSSA - last to 2023, Pseudomonas positive in 2022 CBC, BMP in AM Acute on chronic abdominal pain Started on pain regimen determined to be optimal at last admission IV Tylenol q8h 2mg Dilaudid BID; escalated 1mg -> 1.5mg Dilaudid q2h prn for breakthrough pain Fentanyl patch q72h Pain worsened with nausea and vomiting; resume Ativan q6h prn Antibiotics as above Continue home duloxetine, methocarbamol Continue Protonix 40 daily, Zofran 4mg q4h prn Nutrition consulted Adrenal insufficiency Home fludrocortisone continued Home 15mg hydrocortisone, 10mg evening's dose, wean back to home dose when clinically progressing Hypothyroidism Continue Synthroid PNES History of nonepileptiform seizure-like activity as a pain response. Increased frequency this week due to increased pain. 1-2 a day prior to getting sick. 3 episodes in the ER. Typical eps last 2 min Continue multimodal pain management. Continue Ativan Seizure precautions. Continuous pulse ox. Cautious monitoring for episodes, generally has done well when focusing on pain control and reassurance with episodes. 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 Protein calorie malnutrition Nutrition consulted; starting TPN today after electrolyte repletion POTS Continue meds as noted. Endometriosis S/p hysterectomy DVT prophylaxis: Lovenox Disposition: PCU Diet: Clears as tolerated. Nutrition consulted Admission and Anticipated Discharge Date Admission Date: April 08, 2025 Supervising Physician Co-Signing Physician Notes Resident Physician Supervision Note: I personally examined the patient and verified all solorzano points of history and exam, discussed case, and agree with decision making with Dr. Suarez I discussed the case with the resident and agree with the findings and plan as documented in the note. Any exceptions or clarifications are listed here: None Patient with presented with a significant febrile illness now found to have Ps eudomonas growing from the drainage around her J-tube site. Patient is on Zosyn. She has persistent abdominal discomfort and has PNES from her pain. We are amending her pain control keeping her fentanyl Pseudomonas has been culture from J-tube site infection. Patient was evaluated both g tube and j tube site look improved from one day prior Continue intravenous Zosyn at this point in time consider po meds at home, correct electrolytes before TPN initiation on 04/11 Documented By: Bhanu Means MD Bayron Quezada was seen and evaluated at bedside, mom present in AM Notes her abd and headache are currently 8/10 pain but manageable per report. Okay to stay the course on current pain regimen. Open to trying TPN today. Physical Exam Physical Exam: Gen: appearing tired, in mild distress HEENT: NCAT, normal conjunctiva, MMM CV: RRR, no m/r/g Resp: symmetrical chest rise, breathing non-labored GI/Abd: soft, tender, nondistended, +BS, green drainage from G tube, minor erythema surrounding G- and J-tube sites but no significant swelling or inc warmth Results & Data Results & Data Vital Signs (Past 12 Hours) Vital Signs Temp Pulse Pulse Resp BP Pulse Ox O2 Del Method 04/11/25 07:42 37.2 C 116 H 18 115/80 96 Room Air 04/11/25 02:45 36.7 C 101 H 19 120/82 97 Room Air 04/10/25 23:10 36.8 C 67 18 128/85 95 Room Air 04/10/25 23:09 71 Resident Activity Tracking Resident Involvement: Resident Care Provided Care Provided: Adult Hospital Medicine
[2025-04-11] MEDS ORDERED: DEXTROSE 10% 1,000 ML IV PRN (07:52)
[2025-04-11] MEDS ORDERED: TPN/PPN CONSULT PHARMACY STA (07:52)
[2025-04-11] MEDS ORDERED: TPN/PPN CONSULT PHARMACY PRN (08:21)
[2025-04-11 08:51] LABS: Magnesium 1.5 mg/dl (1.7-2.4)
[2025-04-11] MEDS: POTASSIUM CHLORIDE / WTR 10 MEQ/100 ML PLCT IV SCH (08:52)
[2025-04-11] MEDS: MAGNESIUM SULFATE / D5W 1 GM/100 ML BAG IV SCH (10:50)
[2025-04-11] MEDS: POTASSIUM PHOSPHATE 24 MMOL in SODIUM CHLORIDE 0.9% 500 ML IV ONE (10:51)
[2025-04-11] MEDS: POTASSIUM CHLORIDE 20 MEQ/15 ML UDC PO ONE (10:58)
--- NOTE | 2025-04-11 12:10 | Pharmacy Report ---
Pharmacy Initial PN Consult Nt - Date of Service April 11, 2025 - Scope Pharmacy has been consulted on this date to manage parenteral nutrition orders and order appropriate labs. As part of the Nutrition Support Team Guidelines, pharmacy will work in conjunction with dietary when determining the patients caloric needs. - Subjective * The patient is a 35 year old Female admitted on 04/08/25 for SUSPECTED BACTEREMIA, ABD INFECTION. * Patient is to restart TPN--chronic home use for gastroparesis with chronic abdominal pain resulting in severe protein-calorie malnutrition. 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 - Objective Vascular Access: * Patient currently has a central line. Height & Weight (Last Documented) Height 5 ft 6 in Weight 60.9 kg Diet Order(s) 04/08/25 Lunch Diet Intake & Ouput (24hrs) 04/10/25 04/11/25 04/12/25 06:59 06:59 06:59 Intake Total 3650 / 3650 4802.5 / 4902.5 1293.333 / 1293.333 Output Total 2450 / 4350 8075 / 8075 Balance 1200 / -700 -3272.5 / -3172.5 1293.333 / 1293.333 Selected Laboratory Results 04/11/25 06:14 Sodium 139 Potassium 2.7 L D Chloride 99 Carbon Dioxide 30 Anion Gap 10 BUN 3 L Creatinine 0.48 L BUN/Creatinine Ratio 6.3 L Glucose 78 Calcium 7.7 L Phosphorus 1.7 L D Magnesium 1.[address] - Follow Up Nutrition Assessment Start: 04/09/25 10:05 Freq: Status: Active Protocol: Document 04/11/25 09:56 WN (Rec: 04/11/25 10:14 WN [id number]) RD - Initial Nutrition Assessment Start: 04/09/25 09:45 Freq: Status: Active Protocol: Document 04/09/25 09:45 ALR (Rec: 04/09/25 10:05 ALR [id number]) - Assessment & Plan Assessment: * Appreciate dietitians recommendations for macronutrients. * Patient with intermittent fevers/chills/rigors [employer] and with an elevated procalcitonin on admission. Bacteremia was expected so the TPN was held. Blood cultures have been negative for > 48 hours so TPN to be restarted this evening. K+, Mg+, and Phos all low on labs this morning so orders to replete were obtained and repeat labs have been ordered prior to start of the TPN tonight. Will initiate and advance TPN slowly in light of electrolyte imbalances in order to prevent refeeding syndrome. Plan: * For Day #1 of TPN administration, the following will be ordered: * Macronutrients: * Amino Acids: 42.5 grams/day * Dextrose: 50 grams/day * Lipids: 0 grams/day * Micronutrients: * Sodium phosphate: 0 mMol/day * Sodium chloride: 30 mEq/day * Sodium acetate: 30 mEq/day * Potassium phosphate: 9 mMol/day * Potassium chloride: 100 mEq/day * Potassium acetate: 0 mEq/day * Magnesium sulfate: 12.18 mEq/day * Calcium gluconate: 9.3 mEq/day * Multivitamins: 0 mL/day * Trace elements: 1 mL/day * Thiamine: 100 mg/day * Total volume of 1105 mL will be infused over 24 hours and will provide 340 kcal/day * Labs will be ordered per PN protocol. * Pharmacy will follow and adjust PN orders on a daily basis. Thank you!
--- NOTE | 2025-04-11 17:57 | Billing Data ---
Date of Service April 11, 2025 Coding Level of Care Code 53593 SUB INP/OBS CARE MIN
[2025-04-11 18:50] LABS: Anion Gap 7.0 (3-11); Blood Urea Nitrogen 2.0 mg/dl (6-23); Calcium 7.7 mg/dl (8.6-10.3); Carbon Dioxide 30.0 mmol/L (21-32); Chloride 103.0 mmol/L (98-107); Creatinine Clr Calc Pharmacy 192.1 ml/min; Glucose 98.0 mg/dl (70-99(Fasting)); Magnesium 2.4 mg/dl (1.7-2.4); Potassium 3.7 mmol/L (3.5-5.1); Sodium 140.0 mmol/L (136-145)
[2025-04-11] MEDS: CIPROFLOXACIN 500 MG TAB PO SCH (20:02)
[2025-04-12 06:46] LABS: Hematocrit (blood only) 28.0 % (37.0-47.0); Hemoglobin 9.3 g/dL (12.0-16.0); Mean Corpuscular Hemoglobin 29.4 pg (25.0-34.0); Mean Corpuscular Volume 88.6 fL (80.0-100.0); Platelet Count 241 K/uL (130-400); RDW Standard Deviation 41.3 fL (36.4-46.3); Red Blood Count 3.16 M/uL (4.20-5.40); White Blood Count 3.68 K/ul (4.8-10.8)
[2025-04-12 07:18] LABS: Alanine Aminotransferase 15.0 U/L (7-52); Alkaline Phosphatase 75.0 U/L (34-104); Anion Gap 7.0 (3-11); Bilirubin,Total 0.2 mg/dl (0.2-1.0); Blood Urea Nitrogen 4.0 mg/dl (6-23); Calcium 8.1 mg/dl (8.6-10.3); Carbon Dioxide 30.0 mmol/L (21-32); Chloride 103.0 mmol/L (98-107); Creatinine Clr Calc Pharmacy 178.4 ml/min; Glucose 93.0 mg/dl (70-99(Fasting)); Magnesium 2.1 mg/dl (1.7-2.4); Potassium 3.9 mmol/L (3.5-5.1); Sodium 140.0 mmol/L (136-145); Triglycerides 209.0 mg/dl (0-150)
[2025-04-12] MEDS: [UNRECOGNIZED DRUG - OTHER] SCH (07:33)
--- NOTE | 2025-04-12 11:47 | Hospitalist Progress Note ---
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 She was admitted for IV antibiotics, electrolyte management, and further infectious workup. J-tube site culture positive for pseudomonas, continuing PO cipro. Reaching out to ID for recommended duration of PO abx. #Pseudomonas at J-tube site #Nausea, vomiting, fever 39.4C fever in ER. She has had rigors. Currently afebrile, normotensive, sinus tachycardia - J-tube site wound cultures positive for Pseudomonas sensitive to fluoroquinolones; blood cultures negative at 48hrs Improving erythema and tenderness around abd tube sites on exam Continue cipro 500mg BID- reaching out to ID to obtain recommended duration of treatment Aiming for Saturday 04/14 discharge Lactate is not elevated. Procalcitonin is mildly elevated to 0.52. Renal function is normal. CXR: no active disease CT A/P: Postsurgical findings of colectomy with ileostomy formation, cholecystectomy, and hysterectomy. Percutaneous G-tube as well as percutaneous jejunostomy tube is noted. Mild fatty infiltration of the liver is noted. Bowel obstruction is not seen. No intra-abdominal fluid or air is noted. Ostomy output BioFire negative. Past micro results with multiple strains of MSSA - last to 2023, Pseudomonas positive in 2022 CBC, BMP in AM Acute on chronic abdominal pain Started on pain regimen determined to be optimal at last admission IV Tylenol q8h 2mg Dilaudid BID; escalated 1mg -> 1.5mg Dilaudid q2h prn for breakthrough pain Fentanyl patch q72h Pain worsened with nausea and vomiting; resume Ativan q6h prn Antibiotics as above Continue home duloxetine, methocarbamol Continue Protonix 40 daily, Zofran 4mg q4h prn Nutrition consulted Adrenal insufficiency Home fludrocortisone continued Home 15mg hydrocortisone, 10mg evening's dose, wean back to home dose when clinically progressing Hypothyroidism Continue Synthroid PNES History of nonepileptiform seizure-like activity as a pain response. Increased frequency this week due to increased pain. 1-2 a day prior to getting sick. 3 episodes in the ER. Typical eps last 2 min Continue multimodal pain management. Continue Ativan Seizure precautions. Continuous pulse ox. Cautious monitoring for episodes, generally has done well when focusing on pain control and reassurance with episodes. If hypoxia, incontinence, or prolonged episode will have ativan on ca ll. Protein calorie malnutrition Nutrition consulted; starting TPN today after electrolyte repletion POTS Continue meds as noted. Endometriosis S/p hysterectomy DVT prophylaxis: Lovenox Disposition: PCU Diet: Clears as tolerated. Nutrition consulted Admission and Anticipated Discharge Date Admission Date: April 08, 2025 Supervising Physician Co-Signing Physician Notes Resident Physician Supervision Note: I personally examined the patient and verified all solorzano points of history and exam, discussed case, and agree with decision making with Dr. Suarez I discussed the case with the resident and agree with the findings and plan as documented in the note. Any exceptions or clarifications are listed here: None Patient with presented with a significant febrile illness now found to have Pseudomonas growing from the drainage around her J-tube site. Patient is on Zosyn. She has persistent abdominal discomfort and has PNES from her pain. We are amending her pain control keeping her fentanyl Pseudomonas has been culture from J-tube site infection. Patient was evaluated both g tube and j tube site continue to improve Continue intravenous Zosyn at this point in time consider po meds at home, impro james serology after TPN initiation on 04/11, pt states maybe more pain 04/12. not feeling back to baseline yet Documented By: Bhanu Means MD Bayron Quezada was seen and evaluated at bedside, mom present in AM Notes her abd and headache are improved from prior, noting 7/10 and 5/10 pain respectively. Okay to stay the course on current pain regimen. Notes TPN has been going well and her abd wound tube sites are improving. Aiming for a Saturday 04/14 discharge if pain is adequately controlled. Physical Exam Physical Exam: Gen: appearing tired, in mild distress HEENT: NCAT, normal conjunctiva, MMM CV: RRR, no m/r/g Resp: symmetrical chest rise, breathing non-labored GI/Abd: soft, tender, nondistended, +BS, no drainage seen, erythema and tenderness improved from prior exam Results & Data Results & Data Vital Signs (Past 12 Hours) Vital Signs Temp Pulse Pulse Resp BP Pulse Ox O2 Del Method 04/12/25 10:50 36.6 C 83 18 133/91 95 Room Air 04/12/25 07:46 78 04/12/25 07:19 36.6 C 83 18 130/92 96 Room Air 04/12/25 03:54 36.5 C 62 17 124/80 96 Room Air
[2025-04-12] MEDS: HYDROmorphone INJ 0.5 MG/0.5 ML SYR IV STA (13:32)
[2025-04-12] MEDS: ACETAMINOPHEN 500 MG TAB PO SCH (13:51)
--- NOTE | 2025-04-12 14:06 | Pharmacy Report ---
Pharmacy PN Follow-up Note - Date of Service April 12, 2025 - Subjective Patient is currently on day #2 of TPN for patient on chronic home TPN. - Objective Height & Weight (Last Documented) Height 5 ft 6 in Weight 60.7 kg Diet Order(s) 04/08/25 Lunch Diet Intake & Ouput (24hrs) 04/11/25 04/12/25 04/13/25 06:59 06:59 06:59 Intake Total 4802.5 / 4902.5 4368.833 / 4368.833 450 / 450 Output Total 8075 / 8075 4625 / 4625 825 / 825 Balance -3272.5 / -3172.5 -256.167 / -256.167 -375 / -375 Selected Laboratory Results 04/11/25 04/12/25 18:16 06:13 Sodium 140 140 Potassium 3.7 D 3.9 Chloride 103 103 Carbon Dioxide 30 30 Anion Gap 7 7 BUN 2 L 4 L Creatinine 0.39 L 0.42 L BUN/Creatinine Ratio 5.1 L 9.5 L Glucose 98 93 Calcium 7.7 L 8.1 L Phosphorus 3.8 D 2.7 D Magnesium 2.4 2.1 Total Bilirubin 0.2 AST 18 ALT 15 Alkaline Phosphatase 75 Triglycerides 209 H - Assessment & Plan Assessment: 04/12/25: * Electrolytes have normalized * Discussed with nutrition and will increase towards goal today and change to cyclic PN today * Triglycerides 209 mg/dL - will continue home lipid dosing of 50 g MWF 04/11/25: * Appreciate dietitians recommendations for macronutrients. 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 Bacteremia was expected so the TPN was held. Blood cultures have been negative for > 48 hours so TPN to be restarted this evening. K+, Mg+, and Phos all low on labs this morning so orders to replete were obtained and repeat labs have been ordered prior to start of the TPN tonight. Will initiate and advance TPN slowly in light of electrolyte imbalances in order to prevent refeeding syndrome. Plan: * For Day #2 of TPN administration, the following will be ordered: * Macronutrients: * Amino Acids: 58 grams/day * Dextrose: 101 grams/day * Lipids: 50 grams/day on Thursday/Thursday/Thursday * Micronutrients: * Sodium chloride: 60 mEq/day * Potassium chloride: 100 mEq/day * Magnesium sulfate: 12.18 mEq/day * Calcium gluconate: 18.6 mEq/day * Trace elements: 1 mL/day * Thiamine: 100 mg/day * Total volume of 839 mL will be infused over 18 hours and will provide 1073 kcal/day * Labs will be ordered per PN protocol. * Pharmacy will follow and adjust PN orders on a daily basis. Thank you!
--- NOTE | 2025-04-12 15:11 | Ultrasound Report ---
ULTRASOUND LEFT UPPER EXTREMITY VENOUS CLINICAL HISTORY: Swelling. COMPARISON STUDY: 12/11/2023. TECHNIQUE: Real-time, grayscale, and color Doppler sonography of the deep veins of the left upper ext remity is performed. Compression and augmentation were utilized. FINDINGS: No evidence of DVT seen in the left upper extremity. IMPRESSION: No DVT seen. ACT 112: Act 112:Negative or not required by law. Electronically signed by: Jr Quijano M.D. 04/12/2025 3:09 PM
[2025-04-12] MEDS: CLINOLIPID 20% IV FAT EMULSION 250 ML IV SCH (20:31)
[2025-04-13] MEDS: KETOROLAC TROMETHAMINE 15 MG/ML VIAL IV ONE (00:35)
[2025-04-13] MEDS: LIDOCAINE 5% 1 PATCH TD STA (03:01)
[2025-04-13] MEDS: PLASMA-LYTE A 1,000 ML IV SCH (05:30)
[2025-04-13 05:47] LABS: Hematocrit (blood only) 31.6 % (37.0-47.0); Hemoglobin 10.4 g/dL (12.0-16.0); Mean Corpuscular Hemoglobin 29.6 pg (25.0-34.0); Mean Corpuscular Volume 90.0 fL (80.0-100.0); Platelet Count 233 K/uL (130-400); RDW Standard Deviation 43.4 fL (36.4-46.3); Red Blood Count 3.51 M/uL (4.20-5.40); White Blood Count 8.33 K/ul (4.8-10.8)
[2025-04-13] MEDS: LACTATED RINGER'S 1,000 ML IV ONE (06:11)
--- NOTE | 2025-04-13 06:14 | Communication Note ---
Date of Service: April 13, 2025 Notified of RN of patient developing sinus tachycardia with rates ranging between 140-150s with some rates reaching as high as 170s. Arrived at bedside to assess. Patient found to be laying in bed, awake and alert, and in NAD. Endorses having same abdominal pain she has had as well as some back pain but not very severe at the time. Denies having palpitations, chest pain, SOB, lightheadedness, or other sxs. Other VS at the time showing fever of 39.3 C, BP of 138/84, and O2 sat of 97%. Ordered am labs to be drawn sooner and added a lactate level as well as a random cortisol. CBC w/ slight increase in WBC to 8K (was ~3K yesterday) and had neutrophilic predominance, hgb of 10.4, and plt of 233K. Metabolic panel and magnesium level still pending at this time. Lactate of 2.6. Random cortisol of 8.21. Patient currently with TPN; no additional fluids. Possible this may have some component of dehydration, and given her hx of adrenal insufficiency, possibly some impact from this. Ordered LR 1L bolus and then Plasma-Lyte to be given at maintenance rate, as well as Hydrocortisone 100 mg IV for stress dosing. With initiation of fluids, rates began to improve but still in 130s bpm. Considering fever during the night as well as more significant abdominal pain since changing to PO abx, could consider changing to IV abx. Will continue to monitor. Resident Activity Tracking Resident Involvement: Resident Care Provided Care Provided: Adult Hospital Medicine
[2025-04-13 06:17] LABS: Immature Granulocytes # (auto) 0.06 K/uL (0.01-0.20); Immature Granulocytes % (auto) 0.7 %; Polychromasia 1+; Toxic Vacuolation 2+
[2025-04-13] MEDS: HYDROCORTISONE SOD 100 MG in SYRINGE 0 ML IV STA (06:34)
--- NOTE | 2025-04-13 06:43 | Hospitalist Progress Note ---
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 She was admitted for IV antibiotics, electrolyte management, and further infectious workup. J-tube site culture positive for pseudomonas, switching back to IV zosyn after tachycardia and lactate elevation overnight. UPDATE at 18:30 Transfer pending to [facility] for management of J-tube which has become dislodged from original position, CT abd/pelvis showing the bumper is currently sitting within abdominal wall musculature with small surrounding fluid collection, new since prior CT abd/pelvis 04/07. - transferring by ACLS to continue IV dilaudid 0.5mg IV q1h prn for pain, ativan 0.5mg PO prn for anxiety, and plasmalyte at 100cc/hr #Pseudomonas at J-tube site #tachycardia, elevated lactate 39.4C fever in ER. She has had rigors. Currently afebrile, normotensive, sinus tachycardia Overnight into 04/13/25 had lactate 2.6 which resolved to 1.3; tachy up to 160s though all sinus per tele - given fluid bolus, toradol 15mg IV, and stress dose steroids: hydrocortisone 100mg IV around 6am -> next dose ordered for 50mg IV once back from CT abd/pelvis on q6 schedule - J-tube site wound cultures positive for Pseudomonas sensitive to zosyn and fluoroquinolones; initial blood cultures negative at 48hrs Improving erythema and tenderness around abd tube sites on exam however abd in general very tender to palpation 04/13 switched po cipro back to IV zosyn as there is potential absorption deficiency given pt's GI surgical history Ordered STAT CT abd/pelvis w/ con for suspicion of new intraabdominal abscess considering new worsening abd pain with positive though now downtrending lactate s/p fluid bolus and return to IV abx CXR: no active disease original CT A/P 04/07: Postsurgical findings of colectomy with ileostomy formation, cholecystectomy, and hysterectomy. Percutaneous G-tube as well as percutaneous jejunostomy tube is noted. Mild fatty infiltration of the liver is noted. Bowel obstruction is not seen. No intra-abdominal fluid or air is noted. Ostomy output BioFire negative. Past micro results with multiple strains of MSSA - last to 2023, Pseudomonas positive in 2022 CBC AM #midline spinal tenderness, new lumbar > thoracic and cervical; with clinical worsening and worsening lab f indings concern about spinal osteomyelitis MRI lumbar, thoracic, and cervical spine w/o contrast without concerning findings -> discontinued dapto #Electrolyte derangements severely low phos, low K; repleted 04/13 AM with 15mmol KPhos Phos up to 3.3 around noon - holding TPN for possible intraabdominal abscess, had STAT CT abd/pelvis - BMP, phos AM Acute on chronic abdominal pain Started on pain regimen determined to be optimal at last admission Pain poorly controlled overnight: given dilaudid and toradol with some improvement; given additional 1mg dilaudid and 30mg toradol IV Tylenol q8h 2mg Dilaudid BID; escalated 1mg -> 1.5mg Dilaudid q2h prn for breakthrough pain Given additional Fentanyl patch q72h Pain worsened with nausea and vomiting; resume Ativan q6h prn Antibiotics as above Continue home duloxetine, methocarbamol Continue Protonix 40 daily, Zofran 4mg q4h prn Nutrition consulted Adrenal insufficiency Given stress dose steroids overnight into 04/13/25 due to severe pain and electrolyte derangements; give additional? Home fludrocortisone continued Home 15mg hydrocortisone, 10mg evening's dose, wean back to home dose when clinically progressing Hypothyroidism Continue Synthroid PNES History of nonepileptiform seizure-like activity as a pain response. Increased frequency this week due to increased pain. 1-2 a day prior to getting sick. 3 episodes in the ER. Typical eps last 2 min Continue multimodal pain management. Continue Ativan Seizure precautions. Continuous pulse ox. Cautious monitoring for episodes, generally has done well when focusing on pain control and reassurance with episodes. 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 Protein calorie malnutrition Nutrition consulted; starting TPN today after electrolyte repletion POTS Continue meds as noted. Endometriosis S/p hysterectomy DVT prophylaxis: Lovenox Disposition: PCU Diet: Clears as tolerated. Nutrition consulted Admission and Anticipated Discharge Date Admission Date: April 08, 2025 Supervising Physician Co-Signing Physician Notes Patient seen and examined, chart reviewed, case discussed with Dr. Suarez and I agree with the assessment and plan as above except as otherwise noted Labs and images reviewed Reviewed overnight events. Pilar was with increased tachycardia, poor clinical appearance around 6 AM this morning and was seen by the overnight resident. Lactate was elevated. She was given a liter of crystalloid. At bedside reassessment she endorses that her pain is increased and much worse in her right lower quadrant, she feels this is unusual and she is a good historian of her typical pain, and feels that this is not her typical pain/different. She feels fatigued and like she had fevers overnight. Additionally she feels that she is having pain in her low mid back, which is new for her and has never happened before. She reports she also has some aches of her mid back. She is focally tender at the midline and around L2-L4 which is her area of worst pain, no paraspinal tenderness. She has some focal tenderness to palpation at around C6-C7, much more mild. She reports that her thoracic spine is slightly achy but not as bad. Worst pain is in the lumbar spine. No numbness/tingling/focal weakness. Temperature of 39.3 degrees this morning, she has been getting scheduled Tylenol. She does not have a loop a leukocytosis. On reassessment heart rate improving post fluids. Lactate normalized post fluids. Given her severe increase in right lower quadrant pain which she describes as atypical from her usual, and worsening fever and overall appearance reevaluation with CTA/P with IV contrast is warranted. Additionally she is a good historian of her medical issues, notes she has never had pain in her low back like she is currently experiences and is tender in the midline. She has multiple sources of skin compromise including G-tube/J-tube/Norris which could place her at risk for gram-positive seeding. Daptomycin added as adjunct therapy, MRI of the spine ordered with prior decision of lumbar spine where her pain is the worst. DDx also includes clinical progression due to poor absorption of her oral ciprofloxacin. She has been switched back to IV Zosyn, and will pause TPN for 24 hours. Phosphorus being repleted with K-Phos IV CTA/P reviewed. No large abscess or free air, she does show mispositioned of her J-tube button which is retracted into the abdominal musculature (new compared to prior), and some inflammation/fluid around this. MRI reviewed, fortunately no signs of osteomyelitis. Daptomycin discontinued. Did discuss her case with [facility] Dr. Green who is family with her case and has followed her there. We do not currently have IR on the holiday, could discuss potential over wire tomorrow however they are not available to review case today. J-tube not able to be easily repositioned at bedside and patient has severe pain and would need sedation for this. On review she has presented septic and with some progression and does not have an alternative source including respiratory/urinary. Presumed source is her J-tube which was oozing and cultured for Pseudomonas. As this was not present do not think that the button malposition is what caused her to present here however is a source of ongoing inflammation and potentially contributing to some developing myositis. She may have also had regression due to poor absorption of ciprofloxacin, she is doing somewhat better now back on IV Zosyn. Following review was accepted for transfer to [facility] for surgical management of her J-tube. Will continue stress dosed hydrocortisone IV every 6 hours, Zosyn, and fentanyl patch with Dilaudid push for pain control. Discussed with family who are in agreement with plan of care Subjective Pilar was seen and evaluated at bedside, mom present in AM. Overnight had lower back pain that pt reports traveled up her spine, had quite severe headache and belly pain. Denies any trauma or abnormal positioning/twisting overnight. Notes her abd and headache are 9/10 but a bit improved from overnight. Requesting additional pain management. Heart rate elevated, though no palpitations, SOB, or chest pain noted. Physical Exam Physical Exam: Gen: appearing tired, in moderate distress HEENT: NCAT, normal conjunctiva, MMM CV: RRR, no m/r/g Resp: symmetrical chest rise, breathing non-labored GI/Abd: soft, tender, nondistended, +BS, no drainage seen, erythema and tenderness improved from prior exam MSK: midline spinal tenderness to palpation lumbar up to cervical; lidocaine patch affixed to upper lumbar midline Results & Data Results & Data Vital Signs (Past 12 Hours) Vital Signs Temp Pulse Pulse Resp BP BP Pulse Ox 04/13/25 06:30 36.9 C 138 H 22 112/73 95 04/13/25 05:05 39.3 C H 150 H 20 138/84 97 04/13/25 04:15 145 H 129/82 97 04/13/25 02:45 36.7 C 114 H 20 130/81 100 04/12/25 23:03 36.5 C 80 17 128/85 96 04/12/25 19:19 36.6 C 84 18 142/95 H 96 O2 Del Method 04/13/25 06:30 Room Air 04/13/25 05:05 Room Air 04/13/25 04:15 Room Air 04/13/25 02:45 Room Air 04/12/25 23:03 Room Air 04/12/25 19:19 Room Air Resident Activity Tracking Resident Involvement: Resident Care Provided Care Provided: Adult Hospital Medicine
[2025-04-13 07:49] LABS: Anion Gap 8.0 (3-11); Blood Urea Nitrogen 12.0 mg/dl (6-23); Calcium 8.6 mg/dl (8.6-10.3); Carbon Dioxide 25.0 mmol/L (21-32); Chloride 108.0 mmol/L (98-107); Creatinine Clr Calc Pharmacy 127.0 ml/min; Glucose 147.0 mg/dl (70-99(Fasting)); Magnesium 1.7 mg/dl (1.7-2.4); Potassium 3.4 mmol/L (3.5-5.1); Sodium 141.0 mmol/L (136-145)
[2025-04-13] MEDS ORDERED: POTASSIUM PHOS 3 MMOL/1 ML INFUSION IV STA (07:51)
[2025-04-13] MEDS: HYDROmorphone INJ 1 MG/ML SYRINGE IV STA (08:53)
[2025-04-13] MEDS: KETOROLAC 30 MG/ML VIAL IV ONE (08:54)
[2025-04-13] MEDS: STOP CLINOLIPID SCH (09:00)
[2025-04-13] MEDS: POTASSIUM PHOSPHATE 15 MMOL in SODIUM CHLORIDE 0.9% 250 ML IV ONE (09:43)
[2025-04-13] MEDS: [UNRECOGNIZED DRUG - OTHER] SCH (09:50)
[2025-04-13] MEDS: PIPERACILLIN/TAZOBACTAM 4.5 GM/100 ML BAG IV ONE (10:01)
[2025-04-13] MEDS ORDERED: LORazepam 0.5 MG TAB PO PRN (10:04)
[2025-04-13] MEDS: MAGNESIUM SULFATE / D5W 1 GM/100 ML BAG IV SCH (10:20)
--- NOTE | 2025-04-13 10:59 | Billing Data ---
Date of Service April 13, 2025 Coding Level of Care Code 90846 SUB INP/OBS CARE MIN
[2025-04-13] MEDS: DAPTOmycin 500 MG in SYRINGE 0 ML IV SCH (11:27)
[2025-04-13] MEDS ORDERED: Nursing to Pharmacy Communication SCH (11:30)
[2025-04-13] MEDS ORDERED: LORazepam 0.5 MG TAB PO ONE (11:30)
[2025-04-13] MEDS: OPTIRAY 320 100ml IV ONE (12:18)
[2025-04-13] MEDS: LORazepam 0.5 MG TAB PO ONE (13:05)
--- NOTE | 2025-04-13 13:28 | CT Scan Report ---
CT SCAN OF THE ABDOMEN AND PELVIS WITH IV CONTRAST CLINICAL HISTORY: Sepsis. Generalized abdominal pain. COMPARISON STUDY: Prior abdominal CT scans, most recently dated 04/08/2025. TECHNIQUE: Following the IV administration of 94 cc of Optiray 320, CT scan of the abdomen and pelvi s is performed from the lung bases to the proximal femora. Images are reviewed in the axial, sagittal , and coronal planes. IV contrast was administered without complication. A dose lowering technique wa s utilized adhering to the principles of ALARA. CT DOSE: 585.25 mGy.cm FINDINGS: Lung bases: The tip of a central venous catheter terminates at the cavoatrial junction. The heart is normal in size noting trace pericardial effusion. There is bibasilar dependent atelectasis. No airspa ce consolidation or pleural effusion is identified. Liver: The contrast-enhanced liver is normal in size, contour, and attenuation. There is no intrahepa tic biliary ductal dilatation. The hepatic veins and portal veins are patent. Gallbladder: Surgically absent noting clips in the gallbladder fossa. Spleen: Normal in size and attenuation. Pancreas: Unremarkable. Adrenal glands: Unremarkable. Kidneys: The contrast enhanced kidneys are normal in size and without hydronephrosis. The kidneys enh ance symmetrically. Abdominal vasculature: The abdominal aorta is normal in course and caliber. Bowel: A gastrojejunostomy tube is in place. There is also a percutaneous jejunostomy tube. The bumpe r of the percutaneous jejunostomy tube has been pulled back when compared to 04/08/2025. This is now located within the abdominal wall musculature as seen on axial image #213 and sagittal image #90. The re is now a small amount of fluid seen within the anterior upper abdomen which extends from the poste romedial ligament along the inferior aspect of liver and anteriorly along the ventral abdominal wall/ small bowel loops towards the jejunostomy site. This may represent leakage from the tube. There is po stoperative change from subtotal colectomy with right lower quadrant ileostomy and Radha pouch for mation. No bowel obstruction is seen. The appendix is not identified and reported surgically absent. Peritoneum: There is no intraperitoneal free air or abdominal ascites. A midline surgical scar is not ed. Lymphadenopathy: None. Pelvic viscera: The bladder is normal as visualized. The uterus is surgically absent. Fluid is noted in the vaginal cuff. No adnexal lesion is seen. Skeletal structures: No lytic or blastic lesions are seen. IMPRESSION: 1. Postsurgical change throughout the abdomen and pelvis as above with percutaneous gastrostomy and j ejunostomy tubes in place. 2. The bumper of the jejunostomy tube has been pulled back, and is now located within the abdominal w all musculature. This represents a change from 04/08/2025. 3. Now seen is a small amount of fluid in the anterior and ventral upper abdomen as above with mild i nflammation around the jejunostomy tube site. This may represents leakage from the tube. 4. No intraperitoneal free air is identified and no organized fluid collection is seen. 5. There is no bowel obstruction. 6. Additional findings as above. ACT 112: Negative or not required by law. Electronically signed by: Kirk Burgos M.D. 04/13/2025 1:26 PM
[2025-04-13 13:38] LABS: Appearance Urine Clear (Clear); Bacteria Urine Automated None Seen (None Seen); Cast Urine Automated 0-2 /lpf (0-2); Glucose Urine UA Negative (Negative); RBC Urine Automated 0-2 /hpf (0-2); WBC Urine Automated 0-5 /hpf (0-5)
[2025-04-13] MEDS: HYDROCORTISONE SOD 50 MG in SYRINGE 0 ML IV SCH (15:10)
[2025-04-13] MEDS: REMOVE LIDODERM PATCH SCH (15:22)
[2025-04-13] MEDS: PIPERACILLIN/TAZOBACTAM 4.5 GM/100 ML BAG IV SCH (15:38)
--- NOTE | 2025-04-13 15:42 | Magnetic Resonance Report ---
MRI OF THE THORACIC SPINE WITHOUT IV CONTRAST CLINICAL HISTORY: Sepsis. Thoracic back pain. COMPARISON STUDY: MRI of the thoracic spine dated 12/08/2023. Chest CT dated 12/09/2023. TECHNIQUE: MRI of the thoracic spine is performed utilizing various T1 and T2-weighted sequences in t he axial and sagittal planes. IV contrast was not administered for this examination. FINDINGS: Vertebral body height and alignment are maintained throughout the thoracic spine. There is kyphoscoliosis. The spinous processes appear intact. No destructive bony lesion is seen. The interver tebral discs are normal in height and signal intensity. There is no disc herniation or central canal stenosis. No significant neural foraminal narrowing is seen throughout the thoracic region. The thora cic spinal cord is normal in morphology and signal intensity. The conus medullaris terminates at the L1-L2 interspace. The paraspinous soft tissues are within normal limits. The visualized posterior rib s are grossly unremarkable. No pleural effusion is identified. Atelectasis is noted at the lung bases . IMPRESSION: 1. There is no disc herniation, central canal stenosis, or neural foraminal narrowing throughout the thoracic spine. 2. The thoracic spinal cord is normal in morphology and signal intensity. 3. No destructive bony process is seen. Dictated: 04/13/2025 3:26 PM Transcribed: 04/13/2025 3:39 PM [place] [id number] [email or web address] Electronically signed by: Kirk Burgos M.D. 04/13/2025 3:41 PM
--- NOTE | 2025-04-13 16:02 | Magnetic Resonance Report ---
MRI OF THE LUMBAR SPINE WITHOUT IV CONTRAST CLINICAL HISTORY: Low back pain. Sepsis. COMPARISON STUDY: MRI of the lumbar spine dated 12/08/2023. Abdominal CT dated 04/13/2025. TECHNIQUE: MRI of the lumbar spine is performed utilizing various T1 and T2-weighted sequences in the axial and sagittal planes. IV contrast was not administered for this examination. FINDINGS: Lumbar spine: Vertebral body height and alignment is maintained throughout the lumbar spine. Normal m arrow signal intensity is preserved throughout the visualized bony structures. The transverse and spi nous processes appear intact. There is no evidence of spondylolysis. No destructive bony lesion is se en. There is no significant degenerative endplate change. Intervertebral discs: Normal in height and signal intensity. Spinal cord: The imaged spinal cord is normal in morphology and signal intensity. The conus medullari s terminates at the L1-L2 interspace. The nerve roots of the cauda equina are normal in morphology. L1-L2: Unremarkable. L2-L3: Unremarkable. L3-L4: Unremarkable. L4-L5: Unremarkable. L5-S1: There is minimal posterior disc bulge. The central canal is clear. Mild facet arthropathy is o f no consequence. The neural foramina are patent. Sacrum: The imaged sacrum is normal in morphology and signal intensity. Soft tissues: The paraspinous soft tissues are within normal limits. The retroperitoneal structures a re grossly unremarkable but incompletely evaluated. The bumper of the jejunostomy tube is again seen within the abdominal wall and sagittal image #13. IMPRESSION: 1. There is no disc herniation, central canal stenosis, or neural foraminal narrowing seen throughout the lumbar spine. 2. No destructive bony process is identified. 3. The bumper of the jejunostomy tube is located within the abdominal wall. This was better assessed and discussed on today's abdominal CT. Electronically signed by: Kirk Burgos M.D. 04/13/2025 4:01 PM
--- NOTE | 2025-04-13 16:03 | Magnetic Resonance Report ---
MR OF THE CERVICAL SPINE WITHOUT IV CONTRAST CLINICAL HISTORY: Sepsis. Cervicalgia. COMPARISON STUDY: X-rays of the neck dated 09/04/2016. TECHNIQUE: MRI of the cervical spine is performed utilizing various T1 and T2 sequences in the axial and sagittal planes. IV contrast was not administered for this examination. FINDINGS: Cervical spine: Vertebral body height and alignment are maintained throughout the cervical spine. The re is mild hyperlordosis. The atlantodental articulation is maintained. A small hemangioma is noted i n the body of C5. No destructive bony lesion is seen. The spinous processes appear intact. Intervertebral discs: Normal in height and signal intensity. Spinal cord: The cervical spinal cord is normal in morphology and signal intensity. C2-C3: Unremarkable. C3-C4: Unremarkable. C4-C5: Unremarkable. C5-C6: Unremarkable. C6-C7: Unremarkable. C7-T1: Unremarkable. Soft tissues: The paraspinous and prevertebral soft tissues are normal in appearance. Brain parenchyma: Partially imaged brain parenchyma at the skull base is within normal limits. IMPRESSION: 1. There is no disc herniation, central canal stenosis, or neural foraminal narrowing seen throughout the cervical spine. 2. The cervical cord is normal in morphology and signal intensity. 3. No destructive bony process is seen. ACT 112: Negative or not required by law. Electronically signed by: Kirk Burgos M.D. 04/13/2025 4:01 PM
[2025-04-14 07:56] LABS: Anion Gap 7.0 (3-11); Blood Urea Nitrogen 11.0 mg/dl (6-23); Calcium 8.1 mg/dl (8.6-10.3); Carbon Dioxide 28.0 mmol/L (21-32); Chloride 106.0 mmol/L (98-107); Creatinine Clr Calc Pharmacy 162.8 ml/min; Glucose 126.0 mg/dl (70-99(Fasting)); Magnesium 2.3 mg/dl (1.7-2.4); Potassium 3.7 mmol/L (3.5-5.1); Sodium 141.0 mmol/L (136-145)
[2025-04-14 09:57] LABS: Hematocrit (blood only) 27.4 % (37.0-47.0); Hemoglobin 8.9 g/dL (12.0-16.0); Mean Corpuscular Hemoglobin 29.0 pg (25.0-34.0); Mean Corpuscular Volume 89.3 fL (80.0-100.0); Platelet Count 244 K/uL (130-400); RDW Standard Deviation 45.1 fL (36.4-46.3); Red Blood Count 3.07 M/uL (4.20-5.40); White Blood Count 11.89 K/ul (4.8-10.8)
--- NOTE | 2025-04-14 10:09 | Hospitalist Progress Note ---
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 She was admitted for IV antibiotics, electrolyte management, and further infectious workup. J-tube site culture positive for pseudomonas, has been back on IV Zosyn and improving clinically. Still pending transfer to [facility] for J-tube replacement as this is pt's suspected infectious source. #Pseudomonas at J-tube site #tachycardia, elevated lactate (now resolved) 39.4C fever in ER. She has had rigors. Currently afebrile, normotensive, no rmal sinus 04/13/25 early AM had lactate 2.6 which resolved to 1.3; tachy up to 160s though all sinus per tele - given fluid bolus, toradol 15mg IV, and started stress dose steroids: hydrocortisone 100mg IV -> 50mg IV q6 -> now 50mg IV q8, next dose 21:00 - J-tube site wound cultures positive for Pseudomonas sensitive to zosyn and fluoroquinolones; initial blood cultures negative at >72hrs 04/13 AM switched po cipro back to IV zosyn as there is potential absorption deficiency given pt's GI surgical history 04/14 Improving erythema and tenderness around abd tube sites on exam however abd in general batch still operator to palpation CT A/P 04/13 showing new change of J-tube bumper within abd wall musculature with small surrounding fluid collection original CT A/P 04/07: Postsurgical findings of colectomy with ileostomy formation, cholecystectomy, and hysterectomy. Percutaneous G-tube as well as percutaneous jejunostomy tube is noted. Mild fatty infiltration of the liver is noted. Bowel obstruction is not seen. No intra-abdominal fluid or air is noted 04/14 with clinical improvement in general feeling and pain. White count elevated but with normal vitals and improved clinical appearance can attribute to stress-dose steroids and monitor for any acute worsening. CBC AM #midline spinal tenderness, new lumbar > thoracic and cervical; with clinical worsening and worsening lab findings concern about spinal osteomyelitis MRI lumbar, thoracic, and cervical spine w/o contrast without concerning findings -> discontinued dapto Continue lidocaine patch on lumbar spine where indicated #Electrolyte derangements severely low phos, low K; repleted 04/13 AM with 15mmol KPhos Phos up to 4.7; mag 2.3; Ca 8.9 - continuing TPN w/o lipids today 04/14 to ease back into it - BMP, phos AM Acute on chronic abdominal pain Started on pain regimen determined to be optimal at last admission; pain improved from day prior Current regimen: 2mg Dilaudid BID; escalated 1mg -> 1.5mg Dilaudid q2h prn for breakthrough pain Fentanyl patch q72h Pain worsened with nausea and vomiting; resume Ativan q6h prn Antibiotics as above Continue home duloxetine, methocarbamol Continue Protonix 40 daily, Zofran 4mg q4h prn Nutrition consulted Adrenal insufficiency Given stress dose steroids hydrocortisone 100mg IV around 0600 on 04/13/25 due to severe pain and electrolyte derangements Continuing with hydrocortisone 50mg IV q6, will decrease to q8 Home fludrocortisone continued Home 15mg hydrocortisone, 10mg evening's dose, wean back to home dose when clinically progressing Hypothyroidism Continue Synthroid PNES History of nonepileptiform seizure-like activity as a pain response. Increased frequency this week due to increased pain. 1-2 a day prior to getting sick. 3 episodes in the ER. Typical eps last 2 min Continue multimodal pain management. Continue Ativan Seizure precautions. Continuous pulse ox. Cautious monitoring for episodes, generally has done well when focusing on pain control and reassurance with episodes. 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 Protein calorie malnutrition Nutrition consulted; starting TPN today after electrolyte repletion POTS Continue meds as noted. Endometriosis S/p hysterectomy DVT prophylaxis: Lovenox Disposition: PCU Diet: Clears as tolerated. Nutrition consulted Admission and Anticipated Discharge Date Admission Date: April 08, 2025 Bayron Quezada was seen and evaluated at bedside, mom present in AM. No issues overnight. Feeling overall better this morning, 8/10 belly, head, and lower back pain. No new fever, chills, shakes overnight or this AM. Informed of messy transfer situation i.e. [facility] won't accept without auth due to it being a holiday weekend. Pt and mother okay with staying for now as pt is stable. Physical Exam Physical Exam: Gen: appearing tired, in no acute distress CV: RRR, no m/r/g Resp: symmetrical chest rise, breathing non-labored GI/Abd: soft, tender, nondistended, +BS, no drainage seen, erythema and tenderness improved from prior exam MSK: midline spinal tenderness to palpation lumbar up to cervical Results & Data Results & Data Vital Signs (Past 12 Hours) Vital Signs Temp Pulse Resp BP Pulse Ox O2 Del Method 04/14/25 07:21 36.4 C L 59 L 18 109/76 95 Room Air 04/14/25 03:25 36.5 C 70 17 109/75 97 Room Air 04/13/25 23:01 36.4 C L 74 17 99/66 L 96 Room Air Resident Activity Tracking Resident Involvement: Resident Care Provided Care Provided: Adult Hospital Medicine
[2025-04-14 10:23] LABS: Immature Granulocytes # (auto) 0.03 K/uL (0.01-0.20); Immature Granulocytes % (auto) 0.3 %; Polychromasia 1+; Toxic Vacuolation 3+
[2025-04-14] MEDS: LIDOCAINE 5% 1 PATCH TD SCH (11:27)
[2025-04-14] MEDS: SODIUM CHLORIDE 0.9% 1,000 ML IV SCH (14:05)
[2025-04-14 17:10] VITALS: TEMP 97.9
[2025-04-14] MEDS: HYDROmorphone INJ 0.5 MG/0.5 ML SYR IV STA (17:39)
[2025-04-14] MEDS: HYDROCORTISONE SOD 50 MG in SYRINGE 0 ML IV SCH (17:42)
[2025-04-14 19:55] VITALS: RESP 17
[2025-04-14] MEDS: REMOVE LIDODERM PATCH SCH (21:06)
[2025-04-14 23:15] VITALS: BP 134/89; PULSE 68; O2SAT 94
--- NOTE | 2025-04-20 23:24 | Discharge Summary ---
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 She was admitted for IV antibiotics, electrolyte management, and further infectious workup. J-tube site culture positive for pseudomonas, has been back on IV Zosyn and improving clinically. Still pending transfer to [facility] for J-tube replacement as this is pt's suspected infectious source. #Pseudomonas at J-tube site #tachycardia, elevated lactate (now resolved) 39.4C fever in ER. She has had rigors. Currently afebrile, normotensive, normal sinus 04/13/25 early AM had lactate 2.6 which resolved to 1.3; tachy up to 160s though all sinus per tele - given fluid bolus, toradol 15mg IV, and started stress dose steroids: hydrocortisone 100mg IV -> 50mg IV q6 -> now 50mg IV q8, next dose 21:00 - J-tube site wound cultures positive for Pseudomonas sensitive to zosyn and fluoroquinolones; initial blood cultures negative at >72hrs 04/13 AM switched po cipro back to IV zosyn as there is potential absorption deficiency given pt's GI surgical history 04/14 Improving erythema and tenderness around abd tube sites on exam however abd in general picker tender helper to palpation CT A/P 04/13 showing new change of J-tube bumper within abd wall musculature with small surrounding fluid collection original CT A/P 04/07: Postsurgical findings of colectomy with ileostomy formation, cholecystectomy, and hysterectomy. Percutaneous G-tube as well as percutaneous jejunostomy tube is noted. Mild fatty infiltration of the liver is noted. Bowel obstruction is not seen. No intra-abdominal fluid or air is noted 04/14 with clinical improvement in general feeling and pain. White count elevated but with normal vitals and improved clinical appearance can attribute to stress-dose steroids and monitor for any acute worsening. CBC AM #midline spinal tenderness, new lumbar > thoracic and cervical; with clinical worsening and worsening lab findings concern about spinal osteomyelitis MRI lumbar, thoracic, and cervical spine w/o contrast without concerning findings -> discontinued dapto Continue lidocaine patch on lumbar spine where indicated #Electrolyte derangements severely low phos, low K; repleted 04/13 AM with 15mmol KPhos Phos up to 4.7; mag 2.3; Ca 8.9 - continuing TPN w/o lipids today 04/14 to ease back into it Transfer for J tube replacement Acute on chronic abdominal pain Started on pain regimen determined to be optimal at last admission; pain improved from day prior Current regimen: 2mg Dilaudid BID; escalated 1mg -> 1.5mg Dilaudid q2h prn for breakthrough pain Fentanyl patch q72h Pain worsened with nausea and vomiting; resume Ativan q6h prn Antibiotics as above Continue home duloxetine, methocarbamol Continue Protonix 40 daily, Zofran 4mg q4h prn Nutrition consulted Adrenal insufficiency Given stress dose steroids hydrocortisone 100mg IV around 0600 on 04/13/25 due to severe pain and electrolyte derangements Continuing with hydrocortisone 50mg IV q6, will decrease to q8 Home fludrocortisone continued Home 15mg hydrocortisone, 10mg evening's dose, wean back to home dose when clinically progressing Hypothyroidism Continue Synthroid PNES History of nonepileptiform seizure-like activity as a pain response. Increased frequency this week due to increased pain. 1-2 a day prior to getting sick. 3 episodes in the ER. Typical eps last 2 min Continue multimodal pain management. Continue Ativan Seizure precautions. Continuous pulse ox. Cautious monitoring for episodes, generally has done well when focusing on pain control and reassurance with episodes. 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 Protein calorie malnutrition Nutrition consulted; starting TPN today after electrolyte repletion POTS Continue meds as noted. Endometriosis S/p hysterectomy DVT prophylaxis: Lovenox Disposition: PCU Diet: Clears as tolerated. 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 Fever began 1 evening ago and is associated with nonbloody emesis. In the ER she does not have a leukocytosis. VBG 7.4 /. BMP shows low potassium at 2.8, sodium normal, creatinine normal at 0.73. Ionized calcium is low at 1.07. She does not have a transaminitis. Albumin is normal at 3.9. Procalcitonin is elevated at 0.52. UA is bland. BioFire is negative. Chest x-ray shows no active disease CTA/P: Postsurgical findings of colectomy with ileostomy formation, cholecystectomy, and hysterectomy. Percutaneous G-tube as well as percutaneous jejunostomy tube is noted. Mild fatty infiltration of the liver is noted. Bowel obstruction is not seen. No intra-abdominal fluid or air is noted. CThead: No acute finding Normotensive, tachycardic. EKG with sinus tachycardia, some T wave inversions suggestive of demand. Pilar is seen at the bedside with her mother present; Past few days has felt generally poorly. G tube and G tube have felt irritated, she has felt nauseus. 2 days ago was having intermittent fevers at home of ~100.0-101.0*F. Had a few episodes of chills 2 days ago 4am this morning fever jumped up to 103*F, she had shaking chills, and felt worse. + Headache. +Nausea. +Abdominal pain ithe last 24 hours, mostly in the middle around her ileostomy. Had been doing OK prior. Was being worked up by a multivisceral transplant via [facility], as part of that Dr. Addison had done a pap smear as outpatient and noted a little yeast 1 week ago. Was not recommended for oral agent due to potential to affect her liver so used monostat. Did well with that in the last week, no burning or discharge. Last surgery was December 15 which was anteriorization for her SMA syndrome after her 3rd or 4th recurrence. She also had surgery for median arcuate ligament syndrome Week prior to this had her typical pain, but not bad. [address] [facility] had re-evaluated and since she still could not eat, was stillhaving liver insuffienciency they would move forward with stomach, liver, p ancreas, and small intestine transplant. She is pending insurance review. Anticipated surgical date would be when donor availability permitted, but was probably ana gto be in around 1year but was also be based somewhat on her meld scores. Tylenol 1g TID at home Fentanyl patch 50mcg Liquid oxycodone 20mg q4h consistently gabapentin 900mg PO TID liquid. Her mother reports she only takes 9cc PO TID pf 250mg/5ml sln (actual dose of 450mg per dose, TID) estradiol for hormone replacement Levacin/hyoscyamine for spincter spasms .125mg SL q4h prn for conspitation/spincter spasm Ostomy output slightly thick and greenish +output from J tube. G tube drainage green and changed today Last C diff 2014, no recent. WOrking with Dr. Herrera to braoden abx option. NO PCN allergy. She reports that she has had no warmth, swelling, or tenderness overlying her port but when she has used this for medication has had chills and rigors and is not sure if this is coincidental. Discharge Exam Constitutional WD/WN, vitals as above Respiratory normal respiratory effort, lungs clear to auscultation Cardiovascular RRR, no murmur, no edema Discharge Plan Discharge Items Patient Disposition: Transfer Acute Care Hospital Reason For Visit: SUSPECTED BACTEREMIA, ABD INFECTION Discharge Diagnosis: sepsis; j-tube displacement Condition on Discharge: Serious Activity: Per Instructions section Non-emergency contact: Surgeon and Specialist Call non-emergency contact if: your symptoms worsen and your pain is not controlled Follow-up/Referrals: Mariah Addison DO [Primary Care Provider] - Diet: Other - See Diet Comment Diet Comment: on TPN Addtl Attending Provider Instructions: Pilar is a 35yo female with a complicated medical history involving multiple GI surgeries, 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 J-tube site culture positive for pseudomonas, has been back on IV Zosyn for >36hrs, has been improving clinically. Still pending transfer to [facility] for J-tube replacement as this is pt's suspected infectious source. #Pseudomonas at J-tube site #tachycardia, elevated lactate (now resolved) 39.4C fever in ER. She has had rigors. Currently afebrile, normotensive, normal sinus 04/13/25 early AM had lactate 2.6 which resolved to 1.3; tachy up to 160s though all sinus per tele - given fluid bolus, toradol 15mg IV, and started stress dose steroids: hydrocortisone 100mg IV -> 50mg IV q6 -> now 50mg IV q8, next dose 21:00 - J-tube site wound cultures positive for Pseudomonas sensitive to zosyn and fluoroquinolones; initial blood cultures negative at >72hrs 04/13 AM switched po cipro back to IV zosyn as there is potential absorption deficiency given pt's GI surgical history 04/14 Improving erythema and tenderness around abd tube sites on exam however abd in general picker tender helper to palpation CT A/P 04/13 showing new change of J-tube bumper within abd wall musculature with small surrounding fluid collection original CT A/P 04/07: Postsurgical findings of colectomy with ileostomy formation, cholecystectomy, and hysterectomy. Percutaneous G-tube as well as percutaneous jejunostomy tube is noted. Mild fatty infiltration of the liver is noted. Bowel obstruction is not seen. No intra-abdominal fluid or air is noted 04/14 with clinical improvement in general feeling and pain. White count elevated but with normal vitals and improved clinical appearance can attribute to stress-dose steroids and monitor for any acute worsening. CBC AM #midline spinal tenderness, new lumbar > thoracic and cervical; with clinical worsening and worsening lab findings concern about spinal osteomyelitis MRI lumbar, thoracic, and cervical spine w/o contrast without concerning findings -> discontinued dapto Continue lidocaine patch on lumbar spine where indicated #Electrolyte derangements severely low phos, low K; repleted 04/13 AM with 15mmol KPhos Phos up to 4.7; mag 2.3; Ca 8.9 - continuing TPN w/o lipids today 04/14 to ease back into it - BMP, phos AM Acute on chronic abdominal pain Started on pain regimen determined to be optimal at last admission; pain improved from day prior Current regimen: 2mg Dilaudid BID; escalated 1mg -> 1.5mg Dilaudid q2h prn for breakthrough pain Fentanyl patch q72h Pain worsened with nausea and vomiting; resume Ativan q6h prn Antibiotics as above Continue home duloxetine, methocarbamol Continue Protonix 40 daily, Zofran 4mg q4h prn Nutrition consulted Adrenal insufficiency Given stress dose steroids hydrocortisone 100mg IV around 0600 on 04/13/25 due to severe pain and electrolyte derangements Continuing with hydrocortisone 50mg IV q6, will decrease to q8 Home fludrocortisone continued Home 15mg hydrocortisone, 10mg evening's dose, wean back to home dose when clinically progressing Hypothyroidism Continue Synthroid PNES History of nonepileptiform seizure-like activity as a pain response. Increased frequency this week due to increased pain. 1-2 a day prior to getting sick. 3 episodes in the ER. Typical eps last 2 min Continue multimodal pain management. Continue Ativan Seizure precautions. Continuous pulse ox. Cautious monitoring for episodes, generally has done well when focusing on pain control and reassurance with episodes. 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 Protein calorie malnutrition Nutrition consulted; starting TPN today after electrolyte repletion DVT prophylaxis: Lovenox Disposition: transfer to [facility] Pending Studies at Discharge: No Stand-Alone Forms: My [facility] Skilled Items Patient informed of condition?: Yes DNR: No Discharge Level of Care: Other Communicable Disease: Yes Discharge Prognosis: Deteriorating Lines: Peripheral IV Urinary Catheter: No Medications and DC Order Prescriptions: Continued pyridoxine (vitamin B6) 50 mg tablet 50 mg PO QAM estradiol 0.025 mg/24 hr patch semiweekly 0.025 mg transdermal 2XWK Rx Instructions: wed and sat lorazepam 2 mg/mL concentrate 1 mg PO DIRECTED PRN (Reason: ANXIETY/SLEEP) clindamycin phosphate 1 % gel 1 applic topical DIRECTED famotidine 40 mg tablet 20 mg PO BID Hold Instructions: Resume on 11/22/24. Rx Instructions: 1/2 tablet dose hydrocortisone 10 mg tablet 10 - 15 mg PO UD Hold Instructions: Resume on 10/27/22. Please take hydrocortisone 25mg in the morning and 20mg in the afternoon until your thursday followup with endocrinology Rx Instructions: TAKE 15 MG EVERY MORNING AND 10 MG EVERY AFTERNOON dicyclomine 10 mg Capsule 20 mg PO Q6H PRN (Reason: Abdominal Pain) pantoprazole [Protonix] 40 mg tablet,delayed release (DR/EC) 20 mg PO BID fexofenadine 180 mg Tablet 180 mg PO HS Hold Instructions: Resume on 11/22/24. methocarbamol 750 mg Tablet 750 mg PO TID cholecalciferol (vitamin D3) [Vitamin D3] 25 mcg (1,000 unit) Capsule 50 mcg PO QAM duloxetine 60 mg capsule,delayed release(DR/EC) 60 mg PO QAM ondansetron 8 mg tablet,disintegrating 8 mg PO TID PRN (Reason: Nausea) levothyroxine [Synthroid] 50 mcg tablet 50 mcg PO QAM fludrocortisone 0.1 mg tablet 0.1 mg PO BID acetaminophen [Tylenol Extra Strength] 500 mg Tablet 1,000 mg PO Q6H PRN (Reason: Pain) multivit with min-folic acid [Multivitamin Gummies] 200 mcg Tablet,Chewable 2 tab PO HS turmeric 400 mg Capsule 400 mg PO HS Rx Instructions: Takces 1 cap daily coenzyme Q10 [CoQ-10] 100 mg capsule 100 mg PO QPM Rx Instructions: Takes 1 tab daily gabapentin 250 mg/5 mL solution 900 mg PO TID 30 Days Qty: 1620 0RF fentanyl 50 mcg/hr patch 72 hour 1 patch topical Q72H oxycodone 20 mg/mL Concentrate 5 mg PO Q4H PRN (Reason: Pain, Moderate) Qty: 1260 0RF Discharge Orders: Discharge Order (Routine); Ordered 04/14/25 Ordered By: Gale Jurado Admission Data Admit Date/Time: 04/08/25 15:25 Attending Provider: David Urban Admit Provider: Eugene Bashir Primary Care Provider: Mariah Addison Other Providers: Haleigh Mcmillan; Denny Suarez V.; Josie Sarmiento; Dioni Kumar Hospital Stay Data Consultations 04/08/25 10:26 ED Decision to Admit Stat 04/14/25 21:29 Burn CD for patient Stat Diagnostic Imagining Performed 04/08/25 08:06 CT abd pelvis IV con only Stat CT head/brain wo con Stat 04/12/25 13:00 US venous doppler UE LT Routine 04/13/25 09:51 MRI Lumbar Spine [MR lumbar spine wo con] Urgent 04/13/25 10:14 CT Abd and Pelvis [CT abd pelvis IV con only] Stat 04/13/25 10:16 MRI Spine [MR cervical spine wo con] Routine MRI Spine [MR thoracic spine wo con] Routine Pending Results Patient Have Any Pending Studies at Discharge: No Discharge Instructions Given to Patient (Per Discharging Provider) Pilar is a 35yo female with a complicated medical history involving multiple GI surgeries, 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 J-tube site culture positive for pseudomonas, has been back on IV Zosyn for >36hrs, has been improving clinically. Still pending transfer to [facility] for J-tube replacement as this is pt's suspected infectious source. #Pseudomonas at J-tube site #tachycardia, elevated lactate (now resolved) 39.4C fever in ER. She has had rigors. Currently afebrile, normotensive, normal sinus 04/13/25 early AM had lactate 2.6 which resolved to 1.3; tachy up to 160s though all sinus per tele - given fluid bolus, toradol 15mg IV, and started stress dose steroids: hydrocortisone 100mg IV -> 50mg IV q6 -> now 50mg IV q8, next dose 21:00 - J-tube site wound cultures positive for Pseudomonas sensitive to zosyn and fluoroquinolones; initial blood cultures negative at >72hrs 04/13 AM switched po cipro back to IV zosyn as there is potential absorption deficiency given pt's GI surgical history 04/14 Improving erythema and tenderness around abd tube sites on exam however abd in general picker tender helper to palpation CT A/P 04/13 showing new change of J-tube bumper within abd wall musculature with small surrounding fluid collection original CT A/P 04/07: Postsurgical findings of colectomy with ileostomy formation, cholecystectomy, and hysterectomy. Percutaneous G-tube as well as percutaneous jejunostomy tube is noted. Mild fatty infiltration of the liver is noted. Bowel obstruction is not seen. No intra-abdominal fluid or air is noted 04/14 with clinical improvement in general feeling and pain. White count elevated but with normal vitals and improved clinical appearance can attribute to stress-dose steroids and monitor for any acute worsening. CBC AM #midline spinal tenderness, new lumbar > thoracic and cervical; with clinical worsening and worsening lab findings concern about spinal osteomyelitis MRI lumbar, thoracic, and cervical spine w/o contrast without concerning findings -> discontinued dapto Continue lidocaine patch on lumbar spine where indicated #Electrolyte derangements severely low phos, low K; repleted 04/13 AM with 15mmol KPhos Phos up to 4.7; mag 2.3; Ca 8.9 - continuing TPN w/o lipids today 04/14 to ease back into it - BMP, phos AM Acute on chronic abdominal pain Started on pain regimen determined to be optimal at last admission; pain improved from day prior Current regimen: 2mg Dilaudid BID; escalated 1mg -> 1.5mg Dilaudid q2h prn for breakthrough pain Fentanyl patch q72h Pain worsened with nausea and vomiting; resume Ativan q6h prn Antibiotics as above Continue home duloxetine, methocarbamol Continue Protonix 40 daily, Zofran 4mg q4h prn Nutrition consulted Adrenal insufficiency Given stress dose steroids hydrocortisone 100mg IV around 0600 on 04/13/25 due to severe pain and electrolyte derangements Continuing with hydrocortisone 50mg IV q6, will decrease to q8 Home fludrocortisone continued Home 15mg hydrocortisone, 10mg evening's dose, wean back to home dose when clinically progressing Hypothyroidism Continue Synthroid PNES History of nonepileptiform seizure-like activity as a pain response. Increased frequency this week due to increased pain. 1-2 a day prior to getting sick. 3 episodes in the ER. Typical eps last 2 min Continue multimodal pain management. Continue Ativan Seizure precautions. Continuous pulse ox. Cautious monitoring for episodes, generally has done well when focusing on pain control and reassurance with episodes. 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 Protein calorie malnutrition Nutrition consulted; starting TPN today after electrolyte repletion DVT prophylaxis: Lovenox Disposition: transfer to [facility] Total Time Total Time Spent Total Time Spent (In Minutes): 35 minutes SPent over 30 minutes formulating discharge plan, discussing case with specialists, transfer center and updating patient of transfer. Coding Level of Care Code 82216 INP/OBS DISCH >30 MIN Diagnoses Pseudomonas aeruginosa infection A49.8 Hypokalemia E87.6 POTS (postural orthostatic tachycardia syndrome) G90.A Adrenal insufficiency E27.40 Severe protein-calorie malnutrition E43 Abdominal pain, chronic, generalized R10.84; G89.29
== END 2025-04-14 23:52 | disposition short-term general hospital (02) | DRG 393 ==
LOC: ED 07:32 → 2S 15:25 → SUATTDRO 15:25 → 2S 16:34